=== PATIENT | female | born 1945 | race Caucasian/White ===

== ENCOUNTER → 2018-04-06 15:19 | Outpatient (CLI) | payer MEDICARE, SELFPAY ==
--- NOTE | 2018-04-06 15:21 | ECHOD_ITS ---
Reason For Study: AFIB Procedure This was a 2D Doppler, Color Flow transthoracic echocardiogram. Exam performed in department. Left Ventricle Normal LV size. Left ventricular systolic function is normal. The estimated ejection fraction is 55 %. Stage 2 diastolic dysfunction. No regional wall motion abnormalities noted. Right Ventricle Normal RV size. Normal systolic function. Atria Normal left atrium. Normal right atrium. Mitral Valve Mild diffuse mitral valve thickening. Mild-Moderate (1-2+) eccentric mitral valve insufficiency. Tricuspid Valve Normal tricuspid valve. Mild to moderate (1-2+) tricuspid valve insufficiency. Pulmonary artery systolic pressure is 37 mmHg. Aortic Valve Trisinus/trileaflet aortic valve. Mild focal aortic valve calcification. Pulmonic Valve Normal pulmonic valve. Great Vessels Normal aortic root. The pulmonary artery is normal size. Normal inferior vena cava. Pericardium/Pleural No pericardial effusion. MMode/2D Measurements & Calculations LVIDd: 4.0 cm IVSd: 1.2 cm LVOT diam: 1.8 cm LVIDs: 2.4 cm LVPWd: 1.00 cm LVOT area: 2.5 cm2 RVDd: 3.8 cm FS: 38.7 % Ao root diam: 3.0 cm LAV(MOD-bp): 56.5 ml LA A4 area: 19.5 cm2 LAV(MOD-bp) Indexed: 35.2 ml/m2 LAV(MOD-sp2): 54.0 ml LAV(MOD-sp4): 54.8 ml LA dimension(2D): 4.0 cm RA A4 area: 10.5 cm2 Time Measurements MV dec time: 0.22 sec Doppler Measurements & Calculations MV E max lazarus: 104.6 cm/sec Lat Peak E' Lazarus: 6.8 cm/sec Med Peak E' Lazarus: 5.3 cm/sec MV A max lazarus: 58.6 cm/sec E/E' lat: 15.3 E/E' med: 19.6 MV E/A: 1.8 Ao V2 max: 204.4 cm/sec LV V1 max: 152.7 cm/sec SV(LVOT): 92.9 ml Ao max P.7 mmHg LV V1 max P.3 mmHg Ao V2 mean: 138.5 cm/sec LV V1 mean P.2 mmHg Ao mean P.6 mmHg LV V1 mean: 106.4 cm/sec Ao V2 VTI: 47.4 cm LV V1 VTI: 37.4 cm RHONDA(I,D): 2.0 cm2 RHONDA(V,D): 1.9 cm2 PA V2 max: 126.9 cm/sec PI end-d lazarus: 69.7 cm/sec TR max lazarus: 290.0 cm/sec TR max P.7 mmHg Interpretation Summary Normal LV size. Left ventricular systolic function is normal. The estimated ejection fraction is 55 %. Stage 2 diastolic dysfunction. Mild-Moderate (1-2+) eccentric mitral valve insufficiency. Mild to moderate (1-2+) tricuspid valve insufficiency. Compared to previous study, the left ventricular systolic function has improved.. Ordering Physician: Maxim Ibarra Referring Physician: BRANDON SHAVER Performed By: June Lucero, KOLE, RVT
--- OUTSIDE RECORDS SUMMARY | 2018-05-19 13:49 | XMS RPT_ITS | Clinical Summary ---
:1945 Author Organization [facility], [facility] Address [address] [place] [id number] Phone Care Team Providers Name Role Phone NINI Monroe, Flores Castellon Unavailable Unavailable Conditions or Problems Problem Problem Onset Status Entry Provider Comment Standard Annotate Name Code Date Date Description Cardiomyopa 25259181 Active Lilliana Mahmood Cardiomyopathy thy (SNOMED 10/30 10/[address]) Acute I50.21 Active Lilliana Mahmood Acute systolic systolic (ICD-10-CM 10/30 10/30 RN (congestive) (congestive ) heart failure ) heart failure Acute 96923734 Active Alessio Castellon Acute cholecystit (SNOMED 10/28 10/[address] [place] [address]) Overweight 393927591 Active Natalie Tee Overweight (SNOMED 10/28 10/[address]) RN Dyspnea 752466170 Active Flores Castellon Dyspnea (SNOMED 10/02 10/[address]) 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 Erika Moody 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 Chronic 425870443 Active Erika Moody Chronic diastolic (SNOMED 05/23 05/[address] Viet [address] heart [address]) RN failure failure Hx of 596769121 Active Erika Moody Maze procedure pulmonary (SNOMED 09/19 09/19 Viet for atrial vein [address]) RN fibrillation isolation for atrial fib Paroxysmal 147682033 Active Erika Moody Paroxysmal atrial (SNOMED 05/23 05/[address]) RN fibrillation n 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 Flores Castellon 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 Body Mass 095693968 Resolved Flores Castellon Finding of body Index (SNOMED 01/06 01/06 NINI Monroe mass index 27.0-27.9, CT) adult Family [id number] Resolved Flores Castellon Family history History of (SNOMED 01/20 NINI Monroe of stroke CVA or CT) Stroke High risk 678626805 Active Lilliana Mahmood Long-term drug meds long (SNOMED 06/15 06/[address]) Family [id number] Removed Susan Castellon Family history History of (SNOMED 01/20 Bubba, of stroke CVA or CT) PA-C Stroke Body mass Z68.28 Active Susan Castellon Body mass index index (BMI) (ICD-10-CM 01/20 01/20 Bubba, (BMI) 28.0-28.9, ) PA-C 28.0-28.9, adult adult Body Mass 782261749 Removed Susan Castellon Finding of body Index (SNOMED 01/06 01/06 Bubba, mass index 27.0-27.9, CT) PA-C adult CONGESTIVE 97596732 Inactive Flores Castellon Congestive HEART (SNOMED 05/23 05/23 NINI Monroe heart failure FAILURE CT) ATRIAL 27155054 Inactive Flores Castellon Atrial FIBRILLATIO (SNOMED 05/23 05/23 NINI Monroe fibrillation N CT) Medications Medication Instructions Start Stop Generic Name [facility] Provider Date Date TOPROL XL 50 MG One tablet by METOPROLOL [id number] Grey Eagle S [id number] mouth daily /25 SUCCINATE MD Fred COUMADIN 2 MG take 1 mg on WARFARIN SODIUM 56942134785 Maxim S TABS Tues and Weds, /24 MD Fred 2 mg daliy rest of week or as directed COUMADIN 4 MG One tablet by WARFARIN SODIUM [id number] Stevenson Rees TABS mouth every / MOLDER SWEEP-C evening METOPROLOL One tablet by METOPROLOL 45833966741 Maxim S SUCCINATE ER 100 mouth daily /25 SUCCINATE MD Fred MG [id number] ELIQUIS 5 MG One tablet by APIXABAN 80850123866 Grey Eagle S TABS mouth twice / MD Fred daily AMIODARONE HCL Two tablets by AMIODARONE HCL 41356434679 Jose Sood 200 MG TABS mouth three MD Lawrence times daily X 3 days then One tablet by mouth twice daily ELIQUIS 5 MG One tablet by APIXABAN 80612654664 Susan M TABS mouth twice / Mac, daily PA-C METOPROLOL One tablet by METOPROLOL 87189143749 Susan Castellon SUCCINATE ER 100 mouth daily /25 SUCCINATE Mac, MG [id number] PA-C ELIQUIS 5 MG One tablet by APIXABAN 18884217149 Grey Eagle S TABS mouth twice / MD Fred daily XARELTO 20 MG One tablet by RIVAROXABAN 97594213860 Maxim S TABS mouth daily / MD Fred ASPIRIN 325 MG One tablet by ASPIRIN 34788802632 Grey Eagle S TABS mouth daily / MD Fred COUMADIN 1 MG One tablet by WARFARIN SODIUM 95949780766 Flores M TABS mouth daily / NINI Monroe NASONEX 50 Take as MOMETASONE 08424369642 Flores M MCG/ACT SUSP directed FUROATE NINI Monroe NASONEX 50 Take as MOMETASONE 38060685209 Lilliana A Ela MCG/ACT SUSP directed /10/30 FUROATE RN OMEGA 3 CPDR One tablet by OMEGA-3 FATTY 86852291012 Flores M mouth daily / ACIDS CPDR NINI Monroe OMEGA 3 CPDR One tablet by OMEGA-3 FATTY 56976488658 Lilliana A Ela mouth daily /10/30 ACIDS CPDR RN ASPIRIN EC 81 MG One tablet by ASPIRIN 50070693503 Flores M TBEC mouth daily / Kilner, RN ASPIRIN EC 81 MG One tablet by ASPIRIN 22742058462 Lilliana A Ela TBEC mouth daily /10/30 RN DILTIAZEM HCL ER One tablet by DILTIAZEM HCL 87923527127 Lilliana A Ela 180 MG [id number]-NSM mouth twice / RN daily DILTIAZEM HCL ER One tablet by DILTIAZEM HCL 60480463981 Grey Eagle S 180 MG [id number]-RLB mouth twice /10/31 MD Fred daily METOPROLOL One tablet by METOPROLOL 41779348762 Lilliana A Ela TARTRATE 100 MG mouth twice / TARTRATE RN TABS daily LASIX 40 MG TABS One tablet by FUROSEMIDE 28146153665 Lilliana A Ela mouth twice / RN daily LASIX 40 MG TABS One tablet by FUROSEMIDE 57093055006 Maxim S mouth twice /10/31 MD Fred daily POTASSIUM One tablet by POTASSIUM 20477387269 Lilliana A Ela CHLORIDE ER 20 mouth daily / CHLORIDE RN MEQ CR-TABS POTASSIUM One tablet by POTASSIUM 87286052010 Grey Eagle S CHLORIDE ER 20 mouth daily /10/31 CHLORIDE MD Fred MEQ CR-TABS MULTIVITAMINS One tablet by MULTIPLE VITAMIN Flores M TABS mouth daily / Mabel, RN VITAMIN D 1000 One tablet by CHOLECALCIFEROL 50422180015 Flores M UNIT TABS mouth daily / Kilsharon, RN ANTIVERT 25 MG As needed MECLIZINE HCL Flores M TABS / Kilsharon, RN MELATONIN 3 MG One tablet by MELATONIN 68459481227 Flores M TABS mouth at / Mabel, RN bedtime. As needed VITAMIN B-12 500 One tablet by CYANOCOBALAMIN 27125138159 Flores M MCG TABS mouth daily / Kilsharon, RN OMEPRAZOLE 40 MG One tablet by OMEPRAZOLE 75609159681 Lilliana A Ela CPDR mouth daily / RN CALCIUM 500 MG One tablet by CALCIUM 18276145329 Lilliana A Ela TABS mouth daily / RN XARELTO 20 MG One tablet by RIVAROXABAN 05503410387 Lilliana A Ela TABS mouth daily /02/06 RN METOPROLOL Two tablets by METOPROLOL 31117343737 Susan Castellon SUCCINATE ER 50 mouth daily /25 SUCCINATE Mac, MG [id number] PA-C AMIODARONE HCL Two tablets by AMIODARONE HCL 96940808658 Lilliana A Ela 200 MG TABS mouth twice /04 RN daily X 1 week then One tablet by mouth daily ELIQUIS 5 MG One tablet by APIXABAN 60386284575 Flores M TABS mouth twice /10/02 Kilner, RN daily LASIX 40 MG TABS as needed for FUROSEMIDE 76682544828 Grey Eagle S LE edema / MD Fred AMIODARONE HCL Two tablets by AMIODARONE HCL 72559161670 Lilliana A Ela 200 MG TABS mouth three /04 RN times daily X 3 days then One tablet by mouth twice daily AMIODARONE HCL Two tablets by AMIODARONE HCL 29862422926 Lilliana A Ela 200 MG TABS mouth three /04 06/18 RN times daily X 3 days then One tablet by mouth twice daily ASPIRIN 325 MG One tablet by ASPIRIN 98283477261 Lilliana A Ela TABS mouth daily /20 RN ASPIRIN 325 MG One tablet by ASPIRIN 60637088493 Flores M TABS mouth daily /20 05/14 Kilner, RN LASIX 40 MG TABS as needed for FUROSEMIDE 16322405799 Lilliana A Ela LE edema /20 RN LASIX 40 MG TABS as needed for FUROSEMIDE 27213446437 Flores M LE edema /20 05/14 Kilner, RN OMEPRAZOLE 40 MG One tablet by OMEPRAZOLE 63468534425 Flores M CPDR mouth twice Kilner, RN daily OMEPRAZOLE 40 MG One tablet by OMEPRAZOLE 45691539371 Flores M CPDR mouth twice /10/02 NINI Monroe daily METOPROLOL One tablet by METOPROLOL 57601003772 Erika K SUCCINATE ER 100 mouth daily SUCCINATE Viet MG 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: MULTIVITAMINS One tablet MULTIPLE VITAMIN Erika K TABS by mouth Viet TERRAZAS daily MULTIVITAMINS One tablet 201 MULTIPLE VITAMIN Maxim S TABS by mouth 4/0 MD Fred daily 06/13 VITAMIN D 1000 One tablet CHOLECALCIFEROL 41236146084 Erika K UNIT TABS by mouth Viet TERRAZAS daily VITAMIN D 1000 One tablet 201 CHOLECALCIFEROL 45456805106 Grey Eagle S UNIT TABS by mouth 4/0 MD Fred daily 06/13 LASIX 40 MG TABS One tablet FUROSEMIDE 35364811539 Erika K by mouth Viet TERRAZAS daily LASIX 40 MG TABS One tablet 201 FUROSEMIDE 11936650553 Maxim S by mouth 4/0 MD Fred daily 06/13 5 PRADAXA 150 MG One tablet DABIGATRAN 32222349985 Erika K CAPS by mouth ETEXILATE MESYLATE Viet TERRAZAS twice daily PRADAXA 150 MG One tablet 201 DABIGATRAN 28010029630 Susan Castellon CAPS by mouth 4/0 ETEXILATE MESYLATE Bubba, twice daily 12/11 PA-C 8 METOPROLOL one half METOPROLOL 02934163764 Susan Castellon SUCCINATE ER 100 daily SUCCINATE Mac, MG [id number] PA-C TRAZODONE HCL 50 nightly as TRAZODONE HCL 56326860292 Susan M MG TABS needed Bubba PA-C TRAZODONE HCL 50 nightly as 201 TRAZODONE HCL 03832061924 Maxim S MG TABS needed 5/0 MD Fred 2/2 0 ASPIRIN 81 MG One tablet ASPIRIN 56431908958 Susan M TABS by mouth Mac, daily PA-C ASPIRIN 81 MG One tablet 201 ASPIRIN 66331974347 Maxim S TABS by mouth 5/0 MD Fred daily 2/2 0 METOPROLOL One half METOPROLOL 83423869904 Maxim S SUCCINATE ER 100 tablet by SUCCINATE MD Fred MG [id number] mouth daily OMEPRAZOLE 40 MG One tablet OMEPRAZOLE 45259069570 Maxim S CPDR by mouth MD Fred daily as needed OMEPRAZOLE 40 MG One tablet 201 OMEPRAZOLE 81124106149 Susan Castellon CPDR by mouth 5/0 Mac, daily as 01/10 PA-C needed 1 FLONASE 50 Take as FLUTICASONE 86572816377 Susan Castellon MCG/ACT SUSP directed PROPIONATE Bubba, PA-C FLONASE 50 Take as 201 FLUTICASONE 99896441264 Susan Castellon MCG/ACT SUSP directed 5/0 PROPIONATE Mac, 01/10 PA-C 1 Medications Administered No information available. Allergies, Adverse Reactions, Alerts Allergy Name Reaction Start Date Severity Status Provider Description CARDIZEM Unknown No Longer Lilliana Mahmood RN Active ALBUTEROL Irregular heart Critical Active Maxim Ibarra MD rate AMIODARONE Severe dyspnea Severe Active Lilliana Mahmood RN after taking PO Amiodarone CARDIZEM swelling Critical No Longer Susan Castellon Active Bubba, PA-C HYDROCODONE vomiting Moderate Active Erika Llanos RN MORPHINE vomiting Moderate Active Erika Llanos RN ADHESIVE TAPE rash Moderate Active Erika Llanos RN NAPROXEN Moderate Active Erika Llanos RN Results Date Name Value Unit Range Flag Description Office Visit CHD 10YR RSK Not enough information General cardiovascular disease 10Y risk [#] [place] CARD RSK GRP C cardiac risk group Clinical Lists Update: Preload BNP 237.7 H B-type natriuretic peptide (brain natriuretic peptide) TSH 2.21 u[iU]/mL thyroid stimulating hormone, serum T4, FREE 0.96 ng/dL thyroxine, serum, free T4, TOTAL 9.1 ug/dL thyroxine, serum, total T3 TOTAL 0.91 ng/mL T3, Total T3 FREE 2.5 pg/mL triiodothyronine, free, serum Lab Report: Prothrombin Time w/INR PT RATIO 19.1 SECONDS 11.7-14.9 H prothrombin time, actual/normal, ratio Lab Report: Blood Gas Specimen Type ART BLD GAS ART arterial blood gas Lab Report: pH - I-STAT PH (ART) 7.43 7.35-7.45 pH, arterial blood Lab Report: pCO2 - ISTAT PCO2 (ART) 50.0 mm[Hg] 35-45 H carbon dioxide, partial pressure, arterial blood Lab Report: PO2 I-STAT PO2 (ART) 57 mm[Hg] 75-100 L oxygen, partial pressure, arterial blood Lab Report: Bicarbonate ISTAT HCO3 (ART) 33 mmol/L 22-26 H bicarbonate, arterial blood Lab Report: Base Excess ISTAT BASE EXCESS 9 mmol/L -2 to +2 H base excess, arterial blood Lab Report: Total Carbon Dioxide ISTAT CO2TOT (ART) 35 mmol/L carbon dioxide, arterial blood, total Lab Report: SO2 ISTAT O2SAT (ART) 89 % 95-99 L oxygen saturation, arterial blood Lab Report: Lipase LIPASE SERUM 70 U/L 73-393 L lipase, serum Lab Report: Magnesium MAGNESIUM 2.1 mg/dL 1.8-2.4 magnesium, serum Lab Report: CBC W/Diff, Automated LYMPHCT AUTO 1.80 X10 3/UL 10*3/mm3 0.83-4.51 lymphocyte count, blood, automated ANC 6.8 X10 3/UL 10*3/mm3 2.0-7.7 neutrophil count, blood IMM GRANU % 0.100 % 0.0-0.9 immature granulocytes, percentage of total cells, blood BASOPHIL % 0.2 % 0-1 basophils as percent of blood leukocytes EOSINOPHIL % 1.2 % 0-5 eosinophils as percent of blood leukocytes MONOCYTE % 7.7 % 0-10 monocytes as percent of blood leukocytes LYMPHS % 19.0 % 19-41 lymphocytes as percent of blood leukocytes PMN % 71.8 % 47-70 H neutrophils as percent of blood leukocytes MPV 9.9 fL 6.2-12.0 mean platelet volume PLATELETS 239 10*3/mm3 150-450 platelet count RDW-SD 44.6 fL 35.1-43.9 H red blood cell distribution width, size density RDW 12.9 % 11.6-14.6 red blood cell distribution width MCHC RBC 31.9 G/GL g/dL 32-36 L mean corpuscular hemoglobin concentration, RBC MCH 30.1 pg 27.0-32.0 mean corpuscular hemoglobin, RBC MCV 94.3 fL 81-99 mean corpuscular volume, RBC HCT 34.8 % 37-47 L hematocrit, blood HGB 11.1 g/dL 12.0-15.0 L hemoglobin, blood RBC M/UL 3.69 10*6/uL 4.2-5.4 L red blood count WBC BLOOD 9.5 10*9/L 4.4-11.0 leukocyte (white blood cells) count, blood Lab Report: Comprehensive Metabolic Profil ANION GAP 8 5-15 anion gap, serum CO2 32.0 mmol/L 21.0-32.0 carbon dioxide, venous blood CHLORIDE 100 mmol/L 98-107 chloride, serum POTASSIUM 3.8 mmol/L 3.5-5.1 potassium, serum SODIUM 140 mmol/L 136-145 sodium, serum BILI TOTAL 1.30 mg/dL 0.20-1.00 H bilirubin, serum, total SGPT (ALT) 98 U/L 12-78 H alanine aminotransferase (SGPT), serum ALK PHOS 87 U/L 45-117 alkaline phosphatase, serum SGOT (AST) 41 U/L 15-37 H aspartate aminotransferase (SGOT), serum CALCIUM 9.1 mg/dL 8.5-10.1 calcium, serum A/G RATIO 0.8 RATIO 0.9-2.4 L albumin/globulin ratio, serum GLOBULIN TOT 4.0 g/dL 2.3-3.5 H globulins, serum, total ALBUMIN 3.2 g/dL 3.4-5.0 L albumin, serum PROTEIN, TOT 7.2 g/dL 6.4-8.2 protein, total, serum BUN/CREAT 27.9 RATIO 10-20 H urea nitrogen/creatinine ratio, serum CCVCREABSA 38.14 mL/min calculated corrected value of creatinine clearance with body surface area GFRAA 134 mL/min >60 Glomerular Filtration rate GFR EST 111 mL/min >60 estimated glomerular filtration rate CREATININE 0.57 mg/dL 0.55-1.02 creatinine, serum BUN 16 mg/dL 7-18 urea nitrogen, blood GLUCOSE SER 115 mg/dL 70-110 H blood glucose Office Visit: 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 yes Dietary management education, guidance, and counseling (procedure) SMOK STATUS Former smoker Tobacco use [facility] Lab Report: Prothrombin Time Fingerstick PROTIME 41.4 SEC 11.9-14.4 H Protime Clinical Lists Update: Preload CARDEFECHO 47 % Left ventricular Ejection fraction Office Visit MEDS REVIEW Done Documentation of current medications (procedure) FALLRSKASSES No Fall risk assessment Replaced Document: Midmark ECG Observations EKG INTERP Sinus Bradycardia electrocardiogram -Prominent R(V1) and interpretation left axis -nonspecific -Seen with pulmonary disease -possible anterior fascicular block. -Old anterior infarct. ABNORMAL EKG T AXIS 31 deg T wave axis, electrocardiogram EKG QRS AXIS -23 deg QRS axis, electrocardiogram EKG PWAVAXIS 47 deg P wave axis, electrocardiogram QRS INTERVAL 92 ms QRS duration, electrocardiogram [id number] 434 ms GE use only - for LinkLogic import when terms are not otherwise specified QT INTERVAL new path ms QT interval, electrocardiogram VA INTERVAL 134 ms VA interval, electrocardiogram EKGHRTRATE 52 BPM heart rate on electrocardiogram Coumadin Management: Warfarin Calc INR PT SRC Fingerstick Source of INR (PT) measurement PT PATIENT 0 s prothrombin time (patient) INR 2.4 international normalized ratio (INR) INR RANGE 2 to 3 international normalized ratio (INR) range Plan of Care Type Date Detail Appointment 03:30 PM Maxim Ibarra MD, [address], [address], [place], [address], Referral Cardiac Referral Ajay Hammond MD, [address], [address], [place], [address] Referral EPS Referral Nathan Mane [facility] [place], [address] [place] [address], [phone] Referral EPS Referral Nathan Mane [facility] [place], [address] [place] [address], [phone] Referral excluded from report: Pending order MMM Pending order Follow Up Appt 4 months Pending order EKG (In office) Pending order Follow Up as needed Pending order EKG (In office) Pending order *PT/INR - Standing Order Pending order MMM Pending order Follow Up Appt 3 months Pending order Pulmonary Function Test - complete Pending order CHECK GRADER Pending order Follow Up Appt 6 months Pending order EKG (In office) Pending order MMM Pending order Follow Up Appt 1 month Pending order Transesophageal echocardiogram (ARIS) Pending order Cardioversion Pending order MMM Pending order Follow Up Appt 6 months Pending order CHECK GRADER Pending order Follow Up Appt 6 months Pending order EKG (In office) Pending order MMM Pending order Follow Up Appt 6 months Pending order CHECK GRADER Pending order Follow Up Appt 3 months Procedures Code Procedure Name Date Entry Date F/U MMM MMM FUA 4 months Follow Up Appt 4 months CPT-73739 EKG (In office) Cardiac Referral Cardiac Referral EPS EPS Referral Order excluded from report: F/U MMM MMM FUA 3 months Follow Up Appt 3 months PFT Pulmonary Function Test - complete F/U CHECK GRADER CHECK GRADER FUA 6 months Follow Up Appt 6 months CPT-01343 EKG (In office) F/U MMM MMM FUA 1 month Follow Up Appt 1 month CV Cardioversion ARIS Transesophageal echocardiogram (ARIS) F/U MMM MMM FUA 6 months Follow Up Appt 6 months [id number] SNOMED-CT: [id number] Current Medications Documented F/U CHECK GRADER CHECK GRADER FUA 6 months Follow Up Appt 6 months F/U MMM MMM FUA 6 months Follow Up Appt 6 months CPT-06781 EKG (In office) F/U CHECK GRADER CHECK GRADER FUA 3 months Follow Up Appt 3 months Vital Signs Date Name Value Unit Description BMI (Body Mass Index) 26.95 kg/m2 Body Mass Index [Ratio] BP Diastolic 60 mm[Hg] blood pressure, diastolic - 8462-4 BP Systolic 100 mm[Hg] blood pressure, systolic - 8480-6 Heart Rate 80 /min pulse rate E&M - 8867-4 Height 60 [in_us] height E&M - 8302-2 Respiratory Rate 20 /min respiratory rate E&M - 9279-1 Weight Measured 138 [lb_av] weight E&M - 3141-9 Body Temperature 98.1 [degF] temperature E&M Body Temperature 36.72 Brittanie temperature in centigrade E&M BSA (Body Surface Area) 1.58 body surface area Height 152.40 cm height in centimeters E&M Weight Measured 61.23 kg weight in kilograms E&M
--- OUTSIDE RECORDS SUMMARY | 2018-05-19 13:50 | XMS RPT_ITS | Clinical Summary ---
:1945 Author Organization Formerly [facility], [facility] Address [address] [place] [address] Phone Care Team Providers Name Role Phone Michelle [phone] Conditions or Problems Problem Problem Onset Status Entry Provider Comment Standard Annotate Name Code Date Date Description Cardiomyopa 03806341 Active Lilliana Mahmood Cardiomyopathy thy (SNOMED 10/30 10/[address]) Acute I50.21 Active Lilliana Mahmood Acute systolic systolic (ICD-10-CM 10/30 10/30 RN (congestive) (congestive ) heart failure ) heart failure Acute 00000222 Active Alessio Castellon Acute cholecystit (SNOMED 10/28 10/29 [place] [address] CT) Overweight 280315542 Active Natalie Tee Overweight (SNOMED 10/28 10/[address]) RN Dyspnea 433177635 Active Flores Castellon Dyspnea (SNOMED 10/02 10/[address]) 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 Erika Moody 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 Chronic 289876932 Active Erika Moody Chronic diastolic (SNOMED 05/23 05/[address] [place] [address] heart [address]) RN failure failure Hx of 073349244 Active Erika Modoy Maze procedure pulmonary (SNOMED 09/19 09/19 Viet for atrial vein CT) RN fibrillation isolation for atrial fib Paroxysmal 766115546 Active Erika Moody Paroxysmal atrial (SNOMED 05/23 05/[address]) RN fibrillation n 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 Flores Castellon 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 Body Mass 112424340 Resolved Flores Castellon Finding of body Index (SNOMED 01/06 01/06 NINI [place] mass index 27.0-27.9, CT) adult Family [id number] Resolved Flores Castellon Family history History of (SNOMED 01/20 NINI [place] of stroke CVA or CT) Stroke High risk 845489134 Active Lilliana Mahmood Long-term drug meds long (SNOMED 06/15 06/[address]) Family [id number] Removed Susan Castellon Family history History of (SNOMED 01/20 Bubba, of stroke CVA or CT) PA-C Stroke Body mass Z68.28 Active Susan Castellon Body mass index index (BMI) (ICD-10-CM 01/20 01/20 Bubba, (BMI) 28.0-28.9, ) PA-C 28.0-28.9, adult adult Body Mass 409312152 Removed Susan Castellon Finding of body Index (SNOMED 01/06 01/06 Bubba, mass index 27.0-27.9, CT) PA-C adult CONGESTIVE 25018962 Inactive Flores Castellon Congestive HEART (SNOMED 05/23 05/23 NINI [place] heart failure FAILURE CT) ATRIAL 76420188 Inactive Flores Castellon Atrial FIBRILLATIO (SNOMED 05/23 05/23 NINI [place] fibrillation N CT) Medications Medication Instructions Start Stop Generic Name [facility] Provider Date Date TOPROL XL 50 MG One tablet by METOPROLOL [id number] Maxim S [id number] mouth daily /25 SUCCINATE MD Fred COUMADIN 2 MG take 1 mg on WARFARIN SODIUM [id number] [place] TABS Tues and Weds, /24 MD Fred 2 mg daliy rest of week or as directed COUMADIN 4 MG One tablet by WARFARIN SODIUM 55098650441 Stevenson Rees TABS mouth every / [employer]-C evening METOPROLOL One tablet by METOPROLOL [id number] [place] SUCCINATE ER 100 mouth daily /25 SUCCINATE MD Fred MG [id number] ELIQUIS 5 MG One tablet by APIXABAN 47042873932 Maxim S TABS mouth twice / MD Fred daily AMIODARONE HCL Two tablets by AMIODARONE HCL [id number] Jose Sood 200 MG TABS mouth MD Lawrence times daily X 3 days then One tablet by mouth twice daily ELIQUIS 5 MG One tablet by APIXABAN [id number] Susan Cande TABS mouth twice / Mac, daily PA-C METOPROLOL One tablet by METOPROLOL [id number] Susan Cande SUCCINATE ER 100 mouth daily /25 SUCCINATE Mac, MG [id number] PA-C ELIQUIS 5 MG One tablet by APIXABAN 77863544603 Maxim S TABS mouth twice / MD Fred daily XARELTO 20 MG One tablet by RIVAROXABAN [id number] [place] TABS mouth daily / MD Fred ASPIRIN 325 MG One tablet by ASPIRIN [id number] Maxim S TABS mouth daily / MD Fred NASONEX 50 Take as MOMETASONE 51102560675 Flores M MCG/ACT SUSP directed FUROATE NINI [place] NASONEX 50 Take as MOMETASONE 48799730206 Lilliana A Ela MCG/ACT SUSP directed /10/30 FUROATE RN OMEGA 3 CPDR One tablet by OMEGA-3 FATTY 80909284767 Flores M mouth daily / ACIDS CPDR NINI [place] OMEGA 3 CPDR One tablet by OMEGA-3 FATTY 80739805037 Lilliana A Ela mouth daily /10/30 ACIDS CPDR NINI ASPIRIN EC 81 MG One tablet by ASPIRIN 13276062417 Flores M TBEC mouth daily / NINI [place] ASPIRIN EC 81 MG One tablet by ASPIRIN 03255271658 Lilliana A Ela TBEC mouth daily /10/30 RN DILTIAZEM HCL ER One tablet by DILTIAZEM HCL 71499244654 Lilliana A Ela 180 MG [id number] mouth twice / RN daily DILTIAZEM HCL ER One tablet by DILTIAZEM HCL 56523459916 [place] S 180 MG PF69V-SNN mouth twice /10/31 MD Fred daily METOPROLOL One tablet by METOPROLOL 78111176319 Lilliana A Ela TARTRATE 100 MG mouth twice / TARTRATE RN TABS daily LASIX 40 MG TABS One tablet by FUROSEMIDE 61278536594 Lilliana A Ela mouth twice / RN daily LASIX 40 MG TABS One tablet by FUROSEMIDE 80042294370 Maxim S mouth twice /10/31 MD Fred daily POTASSIUM One tablet by POTASSIUM 93124889829 Lilliana A Ela CHLORIDE ER 20 mouth daily / CHLORIDE RN MEQ CR-TABS POTASSIUM One tablet by POTASSIUM 49150206522 [place] CHLORIDE ER 20 mouth daily /10/31 CHLORIDE MD Fred MEQ CR-TABS MULTIVITAMINS One tablet by MULTIPLE VITAMIN Flores M TABS mouth daily / [facility], RN VITAMIN D 1000 One tablet by CHOLECALCIFEROL 62133235013 Flores M UNIT TABS mouth daily / [facility], RN ANTIVERT 25 MG As needed MECLIZINE HCL Flores M TABS / [facility], RN MELATONIN 3 MG One tablet by MELATONIN [id number] Flores M TABS mouth at / [facility], RN bedtime. As needed VITAMIN B-12 500 One tablet by CYANOCOBALAMIN 45423787991 Flores M MCG TABS mouth daily / [place], RN OMEPRAZOLE 40 MG One tablet by OMEPRAZOLE 80501880235 Lilliana A Ela CPDR mouth daily / RN CALCIUM 500 MG One tablet by CALCIUM [id number] Lilliana A Ela TABS mouth daily / RN XARELTO 20 MG One tablet by RIVAROXABAN 61288077834 Lilliana A Ela TABS mouth daily /11 02/06 RN METOPROLOL Two tablets by METOPROLOL [id number] Susan Castellon SUCCINATE ER 50 mouth daily /25 SUCCINATE Mac, MG CF72F-[id number] PA-C AMIODARONE HCL Two tablets by AMIODARONE HCL 12866490560 Lilliana A Ela 200 MG TABS mouth twice /04 RN daily X 1 week then One tablet by mouth daily ELIQUIS 5 MG One tablet by APIXABAN [id number] Flores M TABS mouth twice /10/02 [facility], RN daily LASIX 40 MG TABS as needed for FUROSEMIDE 56485026436 [place] [facility] LE edema / MD Fred AMIODARONE HCL Two tablets by AMIODARONE HCL 97381019346 Lilliana A Ela 200 MG TABS mouth three /04 RN times daily X 3 days then One tablet by mouth twice daily AMIODARONE HCL Two tablets by AMIODARONE HCL 15994546853 Lilliana A Ela 200 MG TABS mouth three /04 06/18 RN times daily X 3 days then One tablet by mouth twice daily ASPIRIN 325 MG One tablet by ASPIRIN 45353267312 Lilliana A Ela TABS mouth daily /20 RN ASPIRIN 325 MG One tablet by ASPIRIN 77192928208 Flores M TABS mouth daily /20 05/14 [place], RN LASIX 40 MG TABS as needed for FUROSEMIDE 16447349355 Lilliana A Ela LE edema /20 RN LASIX 40 MG TABS as needed for FUROSEMIDE 98424847721 Flores M LE edema /20 05/14 [place], RN OMEPRAZOLE 40 MG One tablet by OMEPRAZOLE 15732754230 Flores M CPDR mouth twice [place], RN daily OMEPRAZOLE 40 MG One tablet by OMEPRAZOLE 08111352288 Flores M CPDR mouth twice /10/02 [place], RN daily METOPROLOL One tablet by METOPROLOL 95911844168 Erika K SUCCINATE ER 100 mouth daily /20 SUCCINATE Viet MG [id number] [employer]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: MULTIVITAMINS One tablet MULTIPLE VITAMIN Erika K TABS by mouth Viet TERRAZAS daily MULTIVITAMINS One tablet 201 MULTIPLE VITAMIN [place] TABS by mouth 4/0 MD Fred daily 06/13 5 VITAMIN D 1000 One tablet CHOLECALCIFEROL 78615674715 Erika K UNIT TABS by mouth Viet TERRAZAS daily VITAMIN D 1000 One tablet 201 CHOLECALCIFEROL 93858383724 Maxim S UNIT TABS by mouth 4/0 MD Fred daily 06/13 5 LASIX 40 MG TABS One tablet FUROSEMIDE 98848008739 Erika K by mouth Viet TERRAZAS daily LASIX 40 MG TABS One tablet 201 FUROSEMIDE 78231513553 [place] S by mouth 4/0 MD Fred daily 06/13 5 PRADAXA 150 MG One tablet DABIGATRAN 13196140103 Erika K CAPS by mouth ETEXILATE MESYLATE Viet TERRAZAS twice daily PRADAXA 150 MG One tablet 201 DABIGATRAN 68672525318 Susan Castellon CAPS by mouth 4/0 ETEXILATE MESYLATE Bubba, twice daily 12/11 PA-C 8 METOPROLOL one half METOPROLOL 93729182174 Susan Castellon SUCCINATE ER 100 daily SUCCINATE Mac, MG [id number]-[id number] PA-C TRAZODONE HCL 50 nightly as TRAZODONE HCL 18057257192 Susan M MG TABS needed Mac, PA-C TRAZODONE HCL 50 nightly as 201 TRAZODONE HCL 28663871230 Maxim S MG TABS needed 5/0 MD Fred 2/2 0 ASPIRIN 81 MG One tablet ASPIRIN 33064853536 Susan M TABS by mouth Bubba, daily PA-C ASPIRIN 81 MG One tablet 201 ASPIRIN 47131060408 [place] S TABS by mouth 5/0 MD Fred daily 2/2 0 METOPROLOL One half METOPROLOL 06645645765 Maxim S SUCCINATE ER 100 tablet by SUCCINATE MD Fred MG [id number] mouth daily OMEPRAZOLE 40 MG One tablet OMEPRAZOLE 87998140405 Maxim S CPDR by mouth MD Fred daily as needed OMEPRAZOLE 40 MG One tablet 201 OMEPRAZOLE 67777044984 Susan Castellon CPDR by mouth 5/0 Mac, daily as 01/10 PA-C needed 1 FLONASE 50 Take as FLUTICASONE 42210481291 Susan Castellon MCG/ACT SUSP directed PROPIONATE OLI MacC FLONASE 50 Take as 201 FLUTICASONE 74713331617 Susan Castellon MCG/ACT SUSP directed 5/0 PROPIONATE Mac, 01/10 PA-C 1 Medications Administered No information available. Allergies, Adverse Reactions, Alerts Allergy Name Reaction Start Date Severity Status Provider Description CARDIZEM Unknown No Longer Lilliana Mahmood RN Active ALBUTEROL Irregular heart Critical Active [place] MD Fred rate AMIODARONE Severe dyspnea Severe Active Lilliana Mahmood RN after taking PO Amiodarone CARDIZEM swelling Critical No Longer Susan Castellon Active OLI MacC HYDROCODONE vomiting Moderate Active Erika Llanos RN MORPHINE vomiting Moderate Active Erika Llanos RN ADHESIVE TAPE rash Moderate Active Erika Llanos RN NAPROXEN Moderate Active Erika Llanos RN Results Date Name Value Unit Range Flag Description Office Visit CHD 10YR RSK Not enough information General cardiovascular disease 10Y risk [#] [place].D'Agostino CARD RSK GRP C cardiac risk group [...] 70-110 H blood glucose Office Visit: S/P Lap Melyssa DIET [employer] yes Dietary management education, guidance, and counseling (procedure) SMOK STATUS Former smoker Tobacco use [facility] Lab Report: Prothrombin Time Fingerstick PROTIME 41.4 SEC 11.9-14.4 H Protime Coumadin Management: Warfarin Calc INR PT [facility] Hospital lab Source of INR (PT) measurement PT PATIENT 41.4 s prothrombin time (patient) INR 3.7 international normalized ratio (INR) INR RANGE 2 to 3 international normalized ratio (INR) range Clinical Lists Update: Preload CARDEFECHO 47 % Left ventricular Ejection fraction Office Visit MEDS REVIEW Done Documentation of current medications (procedure) LUÍS Modi Fall risk assessment Replaced Document: Midmark ECG [...] INTERVAL new path ms QT interval, electrocardiogram ND INTERVAL 134 ms ND interval, electrocardiogram EKGHRTRATE 52 BPM heart rate on electrocardiogram Plan of Care Type Date Detail Appointment 03:30 PM Maxim Ibarra MD, [address] [facility], [address], [place], [address], Referral Cardiac Referral Ajay Hammond MD, [address] [place], [facility] [address], [place], [address] Referral [facility] Ref[facility] [place], [address] [place] [address], [phone] Referral EPS Referral Nathan Mane [facility] [place], [address] [place] [address], [phone] Referral excluded from report: Pending order MMM Pending order Follow Up Appt 4 months Pending order EKG (In office) Pending order Follow Up as needed Pending order EKG (In office) Pending order *PT/INR - Standing Order Pending order MMM Pending order Follow Up Appt 3 months Pending order Pulmonary Function Test - complete Pending order [employer] CHAIR Pending order Follow Up Appt 6 months Pending order EKG (In office) Pending order MMM Pending order Follow Up Appt 1 month Pending order Transesophageal echocardiogram ([facility]) Pending order Cardioversion Pending order MMM Pending order Follow Up Appt 6 months Pending order [employer] CHAIR Pending order Follow Up Appt 6 months Pending order EKG (In office) Pending order MMM Pending order Follow Up Appt 6 months Pending order [employer] DE[employer]MENT CHAIR Pending order Follow Up Appt 3 months Procedures Code Procedure Name Date Entry Date F/U MMM MMM FUA 4 months Follow Up Appt 4 months CPT-93320 EKG (In office) Cardiac Referral Cardiac Referral EPS EPS Referral Order excluded from report: F/U MMM MMM FUA 3 months Follow Up Appt 3 months PFT Pulmonary Function Test - complete F/U [employer] CHAIR [employer] DEPARTMENT CHAIR FUA 6 months Follow Up Appt 6 months CPT-90453 EKG (In office) F/U MMM MMM FUA 1 month Follow Up Appt 1 month CV Cardioversion [facility]IS Transesophageal echocardiogram ([facility]) F/U MMM MMM FUA 6 months Follow Up Appt 6 months SCT-[id number] SNOMED-CT: [id number] Current Medications Documented F/U [employer]PARTMENT CHAIR [employer] DEPARTMENT CHAIR FUA 6 months Follow Up Appt 6 months F/U MMM MMM FUA 6 months Follow Up Appt 6 months CPT-42002 EKG (In office) F/U [employer] DEPARTMENT CHAIR [employer] DEPARTMENT CHAIR FUA 3 months Follow Up Appt 3 [...] Height 152.40 cm height in centimeters E&M O2 % BldC Oximetry 94 % oxygen saturation, oximetry Weight Measured 61.23 kg weight in kilograms E&M
--- OUTSIDE RECORDS SUMMARY | 2018-05-19 13:50 | XMS RPT_ITS | Clinical Summary ---
:1945 Author Organization Formerly [facility], [facility] Address [address] [place] [id number] Phone Care Team Providers Name Role Phone Michelle [phone] Conditions or Problems Problem Problem Onset Status Entry Provider Comment Standard Annotate Name Code Date Date Description Cardiomyopa 46173213 Active Lilliana Mahmood Cardiomyopathy thy (SNOMED 10/30 10/[address]) Acute I50.21 Active Lilliana Mahmood Acute systolic systolic (ICD-10-CM 10/30 10/30 RN (congestive) (congestive ) heart failure ) heart failure Acute 39528189 Active Alessio Castellon Acute cholecystit (SNOMED 10/28 10/[address] [place] [address]) Overweight 906841253 Active Natalie Tee Overweight (SNOMED 10/28 10/[address]) RN Dyspnea 403646245 Active Flores Castellon Dyspnea (SNOMED 10/02 10/[address]) 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 Erika Moody 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 Chronic 608180208 Active Erika Moody Chronic diastolic (SNOMED 05/23 05/[address] [place] [address]) RN failure failure Hx of 934871421 Active Erika Moody Maze procedure pulmonary (SNOMED 09/19 09/19 Viet for atrial vein [address]) RN fibrillation isolation for atrial fib Paroxysmal 481353003 Active Erika Moody Paroxysmal atrial (SNOMED 05/23 05/[address]) RN fibrillation n 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 Flores Castellon 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 Body Mass 293373296 Resolved Flores Castellon Finding of body Index (SNOMED 01/06 01/06 NINI Monroe mass index 27.0-27.9, CT) adult Family [id number] Resolved Flores Castellon Family history History of (SNOMED 01/20 NINI [place] of stroke CVA or CT) Stroke High risk 500421554 Active Lilliana Mahmood Long-term drug meds long (SNOMED 06/15 06/[address]) Family [id number] Removed Susan Castellon Family history History of (SNOMED 01/20 Bubba, of stroke CVA or CT) PA-C Stroke Body mass Z68.28 Active Susan Castellon Body mass index index (BMI) (ICD-10-CM 01/20 01/20 Bubba, (BMI) 28.0-28.9, ) PA-C 28.0-28.9, adult adult Body Mass 731810107 Removed Susan Castellon Finding of body Index (SNOMED 01/06 01/06 Bubba, mass index 27.0-27.9, CT) PA-C adult CONGESTIVE 83995558 Inactive Flores Castellon Congestive HEART (SNOMED 05/23 05/23 NINI [place] heart failure FAILURE CT) ATRIAL 24229688 Inactive Flores Castellon Atrial FIBRILLATIO (SNOMED 05/23 05/23 NINI [place] fibrillation N CT) Medications Medication Instructions Start Stop Generic Name [facility] Provider Date Date TOPROL XL 50 MG One tablet by METOPROLOL [id number] Maxim S [id number] mouth daily /25 SUCCINATE MD Fred COUMADIN 2 MG take 1 mg on WARFARIN SODIUM [id number] [place] S TABS Tues and Weds, /24 MD Fred 2 mg daliy rest of week or as directed COUMADIN 4 MG One tablet by WARFARIN SODIUM 31745053857 Stevenson Rees TABS mouth every / PROJECT MANAGEMENT ANALYST-C evening METOPROLOL One tablet by METOPROLOL 15852863383 [place] S SUCCINATE ER 100 mouth daily /25 SUCCINATE MD Fred MG [id number] ELIQUIS 5 MG One tablet by APIXABAN 90967729811 Maxim S TABS mouth twice / MD Fred daily AMIODARONE HCL Two tablets by AMIODARONE HCL 44743709068 Jose Sood 200 MG TABS mouth MD Lawrence times daily X 3 days then One tablet by mouth twice daily ELIQUIS 5 MG One tablet by APIXABAN [id number] Susan Cande TABS mouth twice / Mac, daily PA-C METOPROLOL One tablet by METOPROLOL [id number] Susan Cande SUCCINATE ER 100 mouth daily /25 SUCCINATE Mac, MG [id number] PA-C ELIQUIS 5 MG One tablet by APIXABAN 23156688402 Maxim S TABS mouth twice / MD Fred daily XARELTO 20 MG One tablet by RIVAROXABAN 66397288051 Columbus S TABS mouth daily / MD Fred ASPIRIN 325 MG One tablet by ASPIRIN 14910737735 Maxim S TABS mouth daily / MD Fred NASONEX 50 Take as MOMETASONE 41571899357 Flores M MCG/ACT SUSP directed FUROATE NINI Monroe NASONEX 50 Take as MOMETASONE 35142235399 Lilliana A Ela MCG/ACT SUSP directed /10/30 FUROATE RN OMEGA 3 CPDR One tablet by OMEGA-3 FATTY 97254574372 Flores M mouth daily / ACIDS CPDR NINI Monroe OMEGA 3 CPDR One tablet by OMEGA-3 FATTY 08752352369 Lilliana A Ela mouth daily /10/30 ACIDS CPDR NINI ASPIRIN EC 81 MG One tablet by ASPIRIN 04249792815 Flores M TBEC mouth daily / NINI Monroe ASPIRIN EC 81 MG One tablet by ASPIRIN 95144490539 Lilliana A Ela TBEC mouth daily /10/30 RN DILTIAZEM HCL ER One tablet by DILTIAZEM HCL 04672380058 Lilliana A Ela 180 MG [id number] mouth twice / RN daily DILTIAZEM HCL ER One tablet by DILTIAZEM HCL 95550449836 [place] S 180 MG [id number] mouth twice /10/31 MD Fred daily METOPROLOL One tablet by METOPROLOL 38083027576 Lilliana A Ela TARTRATE 100 MG mouth twice / TARTRATE RN TABS daily LASIX 40 MG TABS One tablet by FUROSEMIDE 54463768670 Lilliana A Ela mouth twice / RN daily LASIX 40 MG TABS One tablet by FUROSEMIDE 42240091320 Maxim S mouth twice /10/31 MD rFed daily POTASSIUM One tablet by POTASSIUM 08412323284 Lilliana A Ela CHLORIDE ER 20 mouth daily / CHLORIDE RN MEQ CR-TABS POTASSIUM One tablet by POTASSIUM 09149040154 Columbus S CHLORIDE ER 20 mouth daily /10/31 CHLORIDE MD Fred MEQ CR-TABS MULTIVITAMINS One tablet by MULTIPLE VITAMIN Flores M TABS mouth daily / [facility], RN VITAMIN D 1000 One tablet by CHOLECALCIFEROL 54485498614 Flores M UNIT TABS mouth daily / [facility], RN ANTIVERT 25 MG As needed MECLIZINE HCL Flores M TABS / [facility], RN MELATONIN 3 MG One tablet by MELATONIN 33717578755 Flores M TABS mouth at / [facility], RN bedtime. As needed VITAMIN B-12 500 One tablet by CYANOCOBALAMIN 96613578163 Flores M MCG TABS mouth daily / [place], RN OMEPRAZOLE 40 MG One tablet by OMEPRAZOLE 96036589741 Lilliana A Ela CPDR mouth daily / RN CALCIUM 500 MG One tablet by CALCIUM 62769727741 Lilliana A Ela TABS mouth daily / RN XARELTO 20 MG One tablet by RIVAROXABAN 83716349796 Lilliana A Ela TABS mouth daily /11 02/06 RN METOPROLOL Two tablets by METOPROLOL 39025715939 Susan Castellon SUCCINATE ER 50 mouth daily /25 SUCCINATE Mac, MG [id number] PA-C AMIODARONE HCL Two tablets by AMIODARONE HCL 00146952060 Lilliana A Ela 200 MG TABS mouth twice /04 RN daily X 1 week then One tablet by mouth daily ELIQUIS 5 MG One tablet by APIXABAN 86901235672 Flores M TABS mouth twice /10/02 [facility], RN daily LASIX 40 MG TABS as needed for FUROSEMIDE 12794815477 Columbus S LE edema / MD Fred AMIODARONE HCL Two tablets by AMIODARONE HCL 39531273158 Lilliana A Ela 200 MG TABS mouth three /04 RN times daily X 3 days then One tablet by mouth twice daily AMIODARONE HCL Two tablets by AMIODARONE HCL 07302521926 Lilliana A Ela 200 MG TABS mouth three /04 06/18 RN times daily X 3 days then One tablet by mouth twice daily ASPIRIN 325 MG One tablet by ASPIRIN 68833661788 Lilliana A Ela TABS mouth daily /20 RN ASPIRIN 325 MG One tablet by ASPIRIN 74509219294 Flores M TABS mouth daily /20 05/14 Mabel, RN LASIX 40 MG TABS as needed for FUROSEMIDE 06968265447 Lilliana A Ela LE edema /20 RN LASIX 40 MG TABS as needed for FUROSEMIDE 07414189274 Flores M LE edema /20 05/14 [place], RN OMEPRAZOLE 40 MG One tablet by OMEPRAZOLE 42317246181 Flores M CPDR mouth twice [place], RN daily OMEPRAZOLE 40 MG One tablet by OMEPRAZOLE 07510859140 Flores M CPDR mouth twice /10/02 [place], RN daily METOPROLOL One tablet by METOPROLOL 68865491172 Erika K SUCCINATE ER 100 mouth daily /20 SUCCINATE Viet MG 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: MULTIVITAMINS One tablet MULTIPLE VITAMIN Erika K TABS by mouth Viet TERRAZAS daily MULTIVITAMINS One tablet 201 MULTIPLE VITAMIN Columbus S TABS by mouth 4/0 MD Fred daily 06/13 5 VITAMIN D 1000 One tablet CHOLECALCIFEROL 13327090707 Erika K UNIT TABS by mouth Viet TERRAZAS daily VITAMIN D 1000 One tablet 201 CHOLECALCIFEROL 42256183388 Maxim S UNIT TABS by mouth 4/0 MD Fred daily 06/13 5 LASIX 40 MG TABS One tablet FUROSEMIDE 56919551185 Erika K by mouth Viet TERRAZAS daily LASIX 40 MG TABS One tablet 201 FUROSEMIDE 13725488404 [place] S by mouth 4/0 MD Fred daily 06/13 5 PRADAXA 150 MG One tablet DABIGATRAN 20645438428 Erika K CAPS by mouth ETEXILATE MESYLATE Viet TERRAZAS twice daily PRADAXA 150 MG One tablet 201 DABIGATRAN 67043858490 Susan Castellon CAPS by mouth 4/0 ETEXILATE MESYLATE Bubba, twice daily 12/11 PA-C 8 METOPROLOL one half METOPROLOL 26547358723 Susan Castellon SUCCINATE ER 100 daily SUCCINATE Mac, MG [id number] PA-C TRAZODONE HCL 50 nightly as TRAZODONE HCL 90506474833 Susan M MG TABS needed Mac, PA-C TRAZODONE HCL 50 nightly as 201 TRAZODONE HCL 23351901045 Maxim S MG TABS needed 5/0 MD Fred 2/2 0 ASPIRIN 81 MG One tablet ASPIRIN 35087476022 Susan M TABS by mouth Bubba, daily PA-C ASPIRIN 81 MG One tablet 201 ASPIRIN 57313655727 Columbus S TABS by mouth 5/0 MD Fred daily 2/2 0 METOPROLOL One half METOPROLOL 79365452057 Maxim S SUCCINATE ER 100 tablet by SUCCINATE MD Fred MG [id number] mouth daily OMEPRAZOLE 40 MG One tablet OMEPRAZOLE 91380484984 Maxim S CPDR by mouth MD Fred daily as needed OMEPRAZOLE 40 MG One tablet 201 OMEPRAZOLE 89694664107 Susan Castellon CPDR by mouth 5/0 Mac, daily as 01/10 PA-C needed 1 FLONASE 50 Take as FLUTICASONE 83197683418 Susan Castellon MCG/ACT SUSP directed PROPIONATE OLI MacC FLONASE 50 Take as 201 FLUTICASONE 88637750573 Susan Castellon MCG/ACT SUSP directed 5/0 PROPIONATE Mac, 01/10 PA-C 1 Medications Administered No information available. 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 yes Dietary management education, guidance, and counseling (procedure) SMOK STATUS Former smoker Tobacco use [facility] MEDS REVIEW Done Documentation of current medications (procedure) FALLRSKASSES No Fall risk assessment Lab Report: Prothrombin Time Fingerstick PROTIME 41.4 SEC 11.9-14.4 H Protime Coumadin Management: Warfarin Calc INR PT [facility] Hospital lab Source of INR (PT) measurement PT PATIENT 41.4 s prothrombin time (patient) INR 3.7 international normalized ratio (INR) INR RANGE 2 to 3 international normalized ratio (INR) range Clinical Lists Update: Preload CARDEFECHO 47 % Left ventricular Ejection fraction Replaced Document: Midmark ECG Observations EKG INTERP [...] INTERVAL new path ms QT interval, electrocardiogram WV INTERVAL 134 ms WV interval, electrocardiogram EKGHRTRATE 52 BPM heart rate on electrocardiogram Plan of Care Type Date Detail Appointment 03:45 PM Maxim Ibarra MD, [address], [address], [place], [address], Appointment 03:30 PM Maxim Ibarra MD, [address], [address], [place], [address], Referral Cardiac Referral Ajay Hammond MD, [address], [address], [place], [address] Referral EPS Referral Nathan Mane [facility], [address] [place] [address], [address] Referral EPS Referral Nathan Mane [facility], [address] [place] [address], [phone] Referral excluded from report: Pending order MMM Pending order Follow Up Appt 4 months Pending order EKG (In office) Pending order Follow Up as needed Pending order EKG (In office) Pending order *PT/INR - Standing Order Pending order MMM Pending order Follow Up Appt 3 months Pending order Pulmonary Function Test - complete 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 order 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 Pending order Follow Up Appt 6 months Pending order EKG (In office) Pending order MMM Pending order Follow Up Appt 1 month Pending order Transesophageal echocardiogram (ARIS) Pending order Cardioversion Pending order MMM Pending order Follow Up Appt 6 months Pending order 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 Pending order Follow Up Appt 6 months Pending order EKG (In office) Pending order MMM Pending order Follow Up Appt 6 months Pending order 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 Pending order Follow Up Appt 3 months Procedures Code Procedure Name Date Entry Date F/U MMM MMM FUA 4 months Follow Up Appt 4 months CPT-28091 EKG (In office) Cardiac Referral Cardiac Referral EPS EPS Referral Order excluded from report: F/U MMM MMM FUA 3 months Follow Up Appt 3 months PFT Pulmonary Function Test - complete F/U 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 FUA 6 months Follow Up Appt 6 months CPT-71903 EKG (In office) F/U MMM MMM FUA 1 month Follow Up Appt 1 month CV Cardioversion ARIS Transesophageal echocardiogram ([facility]) F/U MMM MMM FUA 6 months Follow Up Appt 6 months [facility]-[id number] SNOMED-CT: [id number] Current Medications Documented F/U 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 FUA 6 months Follow Up Appt 6 months F/U MMM MMM FUA 6 months Follow Up Appt 6 months CPT-76881 EKG (In office) F/U 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 FUA 3 months Follow Up Appt 3 months Vital Signs Date Name Value Unit Description BMI (Body Mass Index) 26.36 kg/m2 Body Mass Index [Ratio] Body Temperature 98.1 [degF] temperature E&M Body Temperature 36.72 Brittanie temperature in centigrade E&M BP Diastolic 71 mm[Hg] blood pressure, diastolic - 8462-4 BP Systolic 119 mm[Hg] blood pressure, systolic - 8480-6 BSA (Body Surface Area) 1.58 body surface area Heart Rate 50 /min pulse rate E&M - 8867-4 Height 60 [in_us] height E&M - 8302-2 Height 152.40 cm height in centimeters E&M O2 % BldC Oximetry 94 % oxygen saturation, oximetry Respiratory Rate 16 /min respiratory rate E&M - 9279-1 Weight Measured 135 [lb_av] weight E&M - 3141-9 Weight Measured 61.23 kg weight in kilograms E&M
--- OUTSIDE RECORDS SUMMARY | 2018-05-19 13:50 | XMS RPT_ITS | Clinical Summary ---
:1945 Author Organization [facility], [facility] Address [address] [place] [address] Phone Care Team Providers Name Role Phone NINI Monroe, Flores Castellon Unavailable Unavailable Conditions or Problems Problem Name Problem Onset Status Entry Provider Comment Standard Annotate Code Date Date Description Acute 67651244 Active Alessio Castellon Acute cholecystiti (SNOMED 10/28 10/[address] [place] [address]) Overweight 701003092 Active Natalie Tee Overweight (SNOMED 10/28 10/[address]) NINI Dyspnea 293101139 Active Flores Castellon Dyspnea (SNOMED 10/02 10/[address]) 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 Erika Moody 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 Chronic 434395738 Active Erika Moody Chronic diastolic (SNOMED 05/23 05/[address]) 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 failure Hx of 204187864 Active Erika Moody Maze procedure pulmonary (SNOMED 09/19 09/[address] [place] [address] vein [address]) RN fibrillation isolation for atrial fib Paroxysmal 224154064 Active Erika Moody Paroxysmal atrial (SNOMED 05/23 05/[address]) RN fibrillation 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 Flores Castellon 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 Body Mass 681585553 Resolved Flores Castellon Finding of Index (SNOMED 01/06 01/06 NINI Monroe body mass 27.0-27.9, CT) index adult Family [id number] Resolved Flores Castellon Family history History of (SNOMED 01/20 NINI Monroe of stroke CVA or CT) Stroke High risk 830570119 Active Lilliana Mahmood Long-term drug meds long (SNOMED 06/15 06/[address]) Family [id number] Removed Susan Castellon Family history History of (SNOMED 01/20 Bubba, of stroke CVA or CT) PA-C Stroke Body mass Z68.28 Active Susan Castellon Body mass index (BMI) (ICD-10-CM 01/20 01/20 Bubba, index (BMI) 28.0-28.9, ) PA-C 28.0-28.9, adult adult Body Mass 207206132 Removed Susan Castellon Finding of Index (SNOMED 01/06 01/06 [place]ubba, body mass 27.0-27.9, CT) PA-C index adult CONGESTIVE 21173391 Inactive Flores Castellon Congestive HEART (SNOMED 05/23 05/23 NINI Monroe heart failure FAILURE CT) ATRIAL 25611553 Inactive Flores Castellon Atrial FIBRILLATION (SNOMED 05/23 05/[address]) Medications Medication Instructions Start Stop Generic Name [facility] Provider Date Date COUMADIN 4 MG One tablet by WARFARIN SODIUM [id number] Stevenson Tee Rees TABS mouth every FLORAL SPECIALIST-C evening METOPROLOL One tablet by METOPROLOL [id number] [place] S SUCCINATE ER 100 mouth daily /25 SUCCINATE MD Fred MG [id number] ELIQUIS 5 MG One tablet by APIXABAN [id number] [place] S TABS mouth twice / MD Fred daily AMIODARONE HCL Two tablets by AMIODARONE HCL [id number] Jose Sood 200 MG TABS mouth MD Lawrence times daily X 3 days then One tablet by mouth twice daily ELIQUIS 5 MG One tablet by APIXABAN 69552487115 Susan Castellon TABS mouth twice /28 Mac, daily PA-C METOPROLOL One tablet by METOPROLOL [id number] Susan Castellon SUCCINATE ER 100 mouth daily /25 SUCCINATE Mac, MG [id number] PA-C ELIQUIS 5 MG One tablet by APIXABAN 55116791028 [place] S TABS mouth twice MD Fred daily XARELTO 20 MG One tablet by RIVAROXABAN 41869694527 [place] S TABS mouth daily / MD Fred ASPIRIN 325 MG One tablet by ASPIRIN 84062442372 Maxim S TABS mouth daily / MD Fred ASPIRIN EC 81 MG One tablet by ASPIRIN 38935736900 Flores M TBEC mouth daily / NINI Monroe MULTIVITAMINS One tablet by MULTIPLE VITAMIN Flores M TABS mouth daily / NINI Monroe VITAMIN D 1000 One tablet by CHOLECALCIFEROL 70123556029 Flores M UNIT TABS mouth daily / NINI Monroe ANTIVERT 25 MG As needed MECLIZINE HCL Flores M TABS / NINI Monroe MELATONIN 3 MG One tablet by MELATONIN [id number] Flores M TABS mouth at NINI Monroe bedtime. As needed NASONEX 50 Take as MOMETASONE [id number] Flores M MCG/ACT SUSP FUROATE NINI Monroe VITAMIN B-12 500 One tablet by CYANOCOBALAMIN 85317817527 Flores M MCG TABS mouth daily / NINI Monroe OMEGA 3 CPDR One tablet by OMEGA-3 FATTY 16818127818 Flores M mouth daily / ACIDS CPDR NINI Monroe XARELTO 20 MG One tablet by RIVAROXABAN 08327908868 Lilliana A Ela TABS mouth daily /02/06 RN METOPROLOL Two tablets by METOPROLOL 37236860401 Susan Castellon SUCCINATE ER 50 mouth daily /25 SUCCINATE Mac, MG [id number] PA-C AMIODARONE HCL Two tablets by AMIODARONE HCL 39497262080 Lilliana A Ela 200 MG TABS mouth twice /04 RN daily X 1 week then One tablet by mouth daily ELIQUIS 5 MG One tablet by APIXABAN 26720410244 Flores M TABS mouth twice /10/02 [facility], RN daily LASIX 40 MG TABS as needed for FUROSEMIDE 69142084792 [place] S LE edema / MD Fred AMIODARONE HCL Two tablets by AMIODARONE HCL 27714629305 Lilliana A Ela 200 MG TABS mouth three / RN times daily X 3 days then One tablet by mouth twice daily AMIODARONE HCL Two tablets by AMIODARONE HCL 63653244919 Lilliana A Eal 200 MG TABS mouth three /06/18 RN times daily X 3 days then One tablet by mouth twice daily ASPIRIN 325 MG One tablet by ASPIRIN 40096940031 Lilliana A Ela TABS mouth daily / RN ASPIRIN 325 MG One tablet by ASPIRIN 19510042707 Flores M TABS mouth daily /20 05/14 [place], RN LASIX 40 MG TABS as needed for FUROSEMIDE 63002082632 Lilliana A Ela LE edema / RN LASIX 40 MG TABS as needed for FUROSEMIDE 10073270179 Flores M LE edema /20 05/14 [place], RN OMEPRAZOLE 40 MG One tablet by OMEPRAZOLE 30562291441 Flores M CPDR mouth twice [facility], RN daily OMEPRAZOLE 40 MG One tablet by OMEPRAZOLE 24292875802 Flores M CPDR mouth twice /10/02 [place], RN daily METOPROLOL One tablet by METOPROLOL 15228318826 Erika K SUCCINATE ER 100 mouth daily / SUCCINATE Viet MG [id number] 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 from report: MULTIVITAMINS One tablet MULTIPLE VITAMIN Erika K TABS by mouth Viet TERRAZAS daily MULTIVITAMINS One tablet 201 MULTIPLE VITAMIN Maxim S TABS by mouth MD Fred daily 22 5 VITAMIN D 1000 One tablet CHOLECALCIFEROL 79212385508 Erika K UNIT TABS by mouth Viet TERRAZAS daily VITAMIN D 1000 One tablet 201 CHOLECALCIFEROL 70060961329 Maxim S UNIT TABS by mouth 4/0 MD Fred daily 06/13 5 LASIX 40 MG TABS One tablet FUROSEMIDE 59540467763 Erika K by mouth Viet TERRAZAS daily LASIX 40 MG TABS One tablet 201 FUROSEMIDE 41547498962 Maxim S by mouth 4/0 MD Fred daily 06/13 5 PRADAXA 150 MG One tablet DABIGATRAN 27353851573 Erika K CAPS by mouth ETEXILATE MESYLATE Viet TERRAZAS twice daily PRADAXA 150 MG One tablet 201 DABIGATRAN 42904104207 Susan Castellon CAPS by mouth 4/0 ETEXILATE MESYLATE Bubba, twice daily 12/11 PA-C 8 METOPROLOL one half METOPROLOL 48221480959 Susan M SUCCINATE ER 100 daily SUCCINATE Mac, MG [id number] PA-C TRAZODONE HCL 50 nightly as TRAZODONE HCL 83038597556 Susan M MG TABS needed Mac, PA-C TRAZODONE HCL 50 nightly as 201 TRAZODONE HCL 31860720264 Maxim S MG TABS needed 5/0 MD Fred 2/2 0 ASPIRIN 81 MG One tablet ASPIRIN 49179360780 Susan M TABS by mouth Mac, daily PA-C ASPIRIN 81 MG One tablet 201 ASPIRIN 59799879193 [place] S TABS by mouth 5/0 MD Fred daily /2 0 METOPROLOL One half METOPROLOL 10935872828 Maxim S SUCCINATE ER 100 tablet by SUCCINATE MD Fred MG [id number] mouth daily OMEPRAZOLE 40 MG One tablet OMEPRAZOLE 53217378613 [place] S CPDR by mouth MD Fred daily as needed OMEPRAZOLE 40 MG One tablet 201 OMEPRAZOLE 29354935521 Susan Castellon CPDR by mouth 5/0 Mac, daily as 01/10 PA-C needed 1 FLONASE 50 Take as FLUTICASONE 57292578155 Susan Castellon MCG/ACT SUSP directed PROPIONATE Mac, PA-C FLONASE 50 Take as 201 FLUTICASONE 65973193943 Susan Castellon MCG/ACT SUSP directed 5/0 PROPIONATE Mac, 01/10 PA-C 1 Medications Administered No information available. Allergies, Adverse Reactions, Alerts Allergy Name Reaction Description Start Date Severity Status Provider ALBUTEROL Irregular heart rate Critical Active Maxim Ibarra MD AMIODARONE Severe dyspnea after Severe Active Lilliana Mahmood RN taking PO Amiodarone CARDIZEM swelling Critical Active Susan Mac, PA-C HYDROCODONE vomiting Moderate Active Erika Llanos RN MORPHINE vomiting Moderate Active Erika Llanos RN ADHESIVE TAPE rash Moderate Active Erika Llanos RN NAPROXEN Moderate Active Erika Llanos RN Results Date Name Value Unit Range Flag Description Office Visit CHD 10YR RSK Not enough information General cardiovascular disease 10Y risk [#] [facility]ost[facility] CARD RSK GRP C cardiac risk group Clinical Lists Update: Preload BNP 237.7 H B-type natriuretic peptide (brain natriuretic peptide) TSH 2.21 u[iU]/mL thyroid stimulating hormone, serum T4, FREE 0.96 ng/dL thyroxine, serum, free T4, TOTAL 9.1 ug/dL thyroxine, serum, total T3 TOTAL 0.91 ng/mL T3, Total T3 FREE 2.5 pg/mL triiodothyronine, free, serum Replaced Document: [facility] ECG Observations EKG INTERP Atrial fibrillation -ST electrocardiogram depression interpretation -Nondiagnostic. ABNORMAL EKG T AXIS 38 deg T wave axis, electrocardiogram EKG QRS AXIS -11 deg QRS axis, electrocardiogram EKG PWAVAXIS 1 deg P wave axis, electrocardiogram QRS INTERVAL 86 ms QRS duration, electrocardiogram QT INTERVAL new path ms QT interval, electrocardiogram VA INTERVAL 0 ms VA interval, electrocardiogram EKGHRTRATE 137 BPM heart rate on electrocardiogram Clinical Lists Update: Preload CARDEFECHO 70 % Left ventricular Ejection fraction Replaced Document: FFP [id number] TRANSFUSED PRODUCT: Fresh GE use only - for [employer] Frozen Plasma import when terms are not COUNT: 1 otherwise specified Lab Report: Prothrombin Time w/INR PT RATIO [...] glucose Office Visit: S/P Lap Melyssa 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 yes Dietary management education, guidance, and counseling (procedure) SMOK STATUS Former smoker Tobacco use [facility] MED[facility] REVIEW Done Documentation of current medications (procedure) FALLRSKASSES No Fall risk assessment Lab Report: Prothrombin Time Fingerstick PROTIME 41.4 SEC 11.9-14.4 H Protime Coumadin Management: Warfarin Calc INR PT [facility] lab Source of INR (PT) measurement PT PATIENT 41.4 s prothrombin time (patient) INR 3.7 international normalized ratio (INR) INR RANGE 2 to 3 international normalized ratio (INR) range Plan of Care Type Date Detail Appointment 03:45 PM Maxim Ibarra MD, [address], [address], [place], [address], Referral Cardiac Referral Ajay Hammond MD, [address], [address], [place], [address] Referral EPS Referral Nathan Mane, [facility], [address] [place] [address], [address] Referral EPS Referral Nathan Mane, [facility], [address] [place] [address], [phone] Referral excluded from report: Pending order Follow Up as needed Pending order EKG (In office) Pending order *PT/INR - Standing Order Pending order MMM Pending order Follow Up Appt 3 months Pending order Pulmonary Function Test - complete Pending order ALLERGIST/IMMUNOLOGIST Pending order Follow Up Appt 6 months Pending order EKG (In office) Pending order MMM Pending order Follow Up Appt 1 month Pending order Transesophageal echocardiogram ([facility]) Pending order Cardioversion Pending order MMM Pending order Follow Up Appt 6 months Pending order ALLERGIST/IMMUNOLOGIST Pending order Follow Up Appt 6 months Pending order EKG (In office) Pending order MMM Pending order Follow Up Appt 6 months Pending order ALLERGIST/IMMUNOLOGIST Pending order Follow Up Appt 3 months Procedures Code Procedure Name Date Entry Date CPT-87391 EKG (In office) Cardiac Referral Cardiac Referral EPS EPS Referral Order excluded from report: F/U MMM MMM FUA 3 months Follow Up Appt 3 months PFT Pulmonary Function Test - complete F/U ALLERGIST/IMMUNOLOGIST ALLERGIST/IMMUNOLOGIST FUA 6 months Follow Up Appt 6 months CPT-63886 EKG (In office) F/U MMM MMM FUA 1 month Follow Up Appt 1 month CV Cardioversion [facility]IS Transesophageal echocardiogram ([facility]) F/U MMM MMM FUA 6 months Follow Up Appt 6 months [facility]-[id number] SNOMED-CT: [id number] Current Medications Documented F/U ALLERGIST/IMMUNOLOGIST ALLERGIST/IMMUNOLOGIST FUA 6 months Follow Up Appt 6 months F/U MMM MMM FUA 6 months Follow Up Appt 6 months CPT-67816 EKG (In office) F/U ALLERGIST/IMMUNOLOGIST ALLERGIST/IMMUNOLOGIST FUA 3 months Follow Up Appt 3 [...]
--- OUTSIDE RECORDS SUMMARY | 2018-05-19 13:51 | XMS RPT_ITS | Clinical Summary ---
:1945 Author Organization [facility], [facility] Address [address] [place] [address] Phone Care Team Providers Name Role Phone Michelle [phone] Conditions or Problems Problem Problem Onset Status Entry Provider Comment Standard Annotate Name Code Date Date Description Cardiomyopa 97438292 Active Lilliana Mahmood Cardiomyopathy thy (SNOMED 10/30 10/[address]) Acute I50.21 Active Lilliana Mahmood Acute systolic systolic (ICD-10-CM 10/30 10/30 RN (congestive) (congestive ) heart failure ) heart failure Acute 45008822 Active Alessio Castellon Acute cholecystit (SNOMED 10/28 10/29 [place] [address] CT) Overweight 661713713 Active Natalie Tee Overweight (SNOMED 10/28 10/[address]) RN Dyspnea 153584362 Active Flores Castellon Dyspnea (SNOMED 10/02 10/[address]) 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 Erika Moody 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 Chronic 436530407 Active Erika Moody Chronic diastolic (SNOMED 05/23 05/[address] Viet [address]) RN failure failure Hx of 372299415 Active Erika Moody Maze procedure pulmonary (SNOMED 09/19 09/19 Viet for atrial vein [address]) RN fibrillation isolation for atrial fib Paroxysmal 852568318 Active Erika Moody Paroxysmal atrial (SNOMED 05/23 05/[address]) RN fibrillation n 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 Flores Castellon 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 Body Mass 656946269 Resolved Flores Castellon Finding of body Index (SNOMED 01/06 01/06 NINI Monroe mass index 27.0-27.9, CT) adult Family 590067359 Resolved Flores Castellon Family history History of (SNOMED 01/20 NINI Monroe of stroke CVA or CT) Stroke High risk 117222728 Active Lilliana Mahmood Long-term drug meds long (SNOMED 06/15 06/[address]) Family 866469802 Removed Susan Castellon Family history History of (SNOMED 01/20 Bubba, of stroke CVA or CT) PA-C Stroke Body mass Z68.28 Active Susan Castellon Body mass index index (BMI) (ICD-10-CM 01/20 01/20 Bubba, (BMI) 28.0-28.9, ) PA-C 28.0-28.9, adult adult Body Mass 870649467 Removed Susan Castellon Finding of body Index (SNOMED 01/06 01/06 Bubba, mass index 27.0-27.9, CT) PA-C adult CONGESTIVE 20517769 Inactive Flores Castellon Congestive HEART (SNOMED 05/23 05/23 NINI Monroe heart failure FAILURE CT) ATRIAL 89910411 Inactive Flores Castellon Atrial FIBRILLATIO (SNOMED 05/23 05/23 NINI [place] fibrillation N CT) Medications Medication Instructions Start Stop Generic Name ND Provider Date Date COUMADIN 2 MG take 1 mg on WARFARIN SODIUM [id number] Courtenay S TABS Tues and Weds, /24 MD Fred 2 mg daliy rest of week or as directed TOPROL XL 50 MG One tablet by METOPROLOL 37460462158 Maxim S [id number] mouth daily /25 SUCCINATE MD Fred COUMADIN 4 MG One tablet by WARFARIN SODIUM [id number] Stevenson Rodriguezder TABS mouth every / REIMBURSEMENT LIAISON-C evening METOPROLOL One tablet by METOPROLOL 42681966491 Maxim S SUCCINATE ER 100 mouth daily /25 SUCCINATE MD Fred MG [id number]-OFE ELIQUIS 5 MG One tablet by APIXABAN 21255829102 Courtenay S TABS mouth twice / MD Fred daily AMIODARONE HCL Two tablets by AMIODARONE HCL 10861404721 Jose Sood 200 MG TABS mouth MD Lawrence times daily X 3 days then One tablet by mouth twice daily ELIQUIS 5 MG One tablet by APIXABAN 32794354591 Susan Castellon TABS mouth twice / Mac, daily PA-C METOPROLOL One tablet by METOPROLOL 58133800853 Susan Castellon SUCCINATE ER 100 mouth daily /25 SUCCINATE Mac, MG [id number]-SZP PA-C ELIQUIS 5 MG One tablet by APIXABAN 82472074487 Maxim S TABS mouth twice / MD Fred daily XARELTO 20 MG One tablet by RIVAROXABAN 79528816073 Maxim S TABS mouth daily / MD Fred ASPIRIN 325 MG One tablet by ASPIRIN 27386155461 Courtenay S TABS mouth daily / MD Fred LASIX 40 MG TABS One tablet by FUROSEMIDE 44989354008 Lilliana A Ela mouth twice / RN daily LASIX 40 MG TABS One tablet by FUROSEMIDE 48618385177 Maxim S mouth twice /10/31 MD Fred daily POTASSIUM One tablet by POTASSIUM 18294157674 Lilliana A Ela CHLORIDE ER 20 mouth daily / CHLORIDE RN MEQ CR-TABS POTASSIUM One tablet by POTASSIUM 47514906625 Courtenay S CHLORIDE ER 20 mouth daily /10/31 CHLORIDE MD Fred MEQ CR-TABS NASONEX 50 Take as MOMETASONE 90928402859 Flores Cande MCG/ACT SUSP FUROATE NINI Monroe NASONEX 50 Take as MOMETASONE 13026135505 Lilliana A Ela MCG/ACT SUSP directed /10/30 FUROATE RN OMEGA 3 CPDR One tablet by OMEGA-3 FATTY 90567303803 Flores M mouth daily / ACIDS CPDR NINI Monroe OMEGA 3 CPDR One tablet by OMEGA-3 FATTY 50704926684 Lilliana A Ela mouth daily /10/30 ACIDS CPDR RN ASPIRIN EC 81 MG One tablet by ASPIRIN 19878259871 Flores M TBEC mouth daily / NINI Monroe ASPIRIN EC 81 MG One tablet by ASPIRIN 32826182406 Lilliana A Ela TBEC mouth daily /10/30 RN DILTIAZEM HCL ER One tablet by DILTIAZEM HCL 13889932448 Lilliana A Ela 180 MG [id number] mouth twice / RN daily DILTIAZEM HCL ER One tablet by DILTIAZEM HCL 83004976840 Maxim S 180 MG [id number]-YQU mouth twice /10/31 MD Fred daily METOPROLOL One tablet by METOPROLOL 46061634696 Lilliana A Ela TARTRATE 100 MG mouth twice / TARTRATE RN TABS daily COUMADIN 2 MG take 1 mg on WARFARIN SODIUM 00658835958 Maxim S TABS and , MD Fred 2 mg daliy rest of week or as directed COUMADIN 1 MG One tablet by WARFARIN SODIUM 92007888151 Flores M TABS mouth daily / NINI Monroe COUMADIN 1 MG One tablet by WARFARIN SODIUM 21092309146 Maxim S TABS mouth daily MD Fred MULTIVITAMINS One tablet by MULTIPLE VITAMIN Flores M TABS mouth daily / NINI Monroe VITAMIN D 1000 One tablet by CHOLECALCIFEROL 77351697192 Flores M UNIT TABS mouth daily / NINI Monroe ANTIVERT 25 MG As needed MECLIZINE HCL Flores M TABS / NINI Monroe MELATONIN 3 MG One tablet by MELATONIN 58409711130 Flores M TABS mouth at [facility], RN bedtime. As needed VITAMIN B-12 500 One tablet by CYANOCOBALAMIN 05975497927 Flores M MCG TABS mouth daily / [place], RN OMEPRAZOLE 40 MG One tablet by OMEPRAZOLE 70247433617 Lilliana A Ela CPDR mouth daily / RN CALCIUM 500 MG One tablet by CALCIUM 03806893214 Lilliana A Ela TABS mouth daily / RN XARELTO 20 MG One tablet by RIVAROXABAN 57949151543 Lilliana A Ela TABS mouth daily /02/06 RN METOPROLOL Two tablets by METOPROLOL 60001950456 Susan Cande SUCCINATE ER 50 mouth daily / SUCCINATE Mac, MG [id number] RENEE-Yves AMIODARONE HCL Two tablets by AMIODARONE HCL 18550758065 Lilliana A Ela 200 MG TABS mouth twice /04 RN daily X 1 week then One tablet by mouth daily ELIQUIS 5 MG One tablet by APIXABAN 18748653823 Flores M TABS mouth twice /10/02 [facility], RN daily LASIX 40 MG TABS as needed for FUROSEMIDE 00435634498 Maxim S LE edema / MD Fred AMIODARONE HCL Two tablets by AMIODARONE HCL 05144122677 Lilliana A Ela 200 MG TABS mouth three /04 RN times daily X 3 days then One tablet by mouth twice daily AMIODARONE HCL Two tablets by AMIODARONE HCL 96681417064 Lilliana A Ela 200 MG TABS mouth three /04 2/07 RN times daily X 3 days then One tablet by mouth twice daily ASPIRIN 325 MG One tablet by ASPIRIN 22087152708 Lilliana A Ela TABS mouth daily /20 RN ASPIRIN 325 MG One tablet by ASPIRIN 55860816426 Flores M TABS mouth daily /20 05/14 [facility], RN LASIX 40 MG TABS as needed for FUROSEMIDE 48233127136 Lilliana A Ela LE edema /20 RN LASIX 40 MG TABS as needed for FUROSEMIDE 30250932725 Flores Castellon LE 05/14 NINI Monroe OMEPRAZOLE 40 MG One tablet by OMEPRAZOLE 55074124021 Flores Castellon CPDR mouth twice Mabel RN daily OMEPRAZOLE 40 MG One tablet by OMEPRAZOLE 97997478887 Flores Castellon CPDR mouth twice /10/02 NINI Monroe daily METOPROLOL One tablet by METOPROLOL 06192882479 Erika K SUCCINATE ER 100 mouth daily SUCCINATE Viet MG [id number]-[id number] 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 excluded from report: MULTIVITAMINS One tablet MULTIPLE VITAMIN Erika K TABS by mouth Viet TERRAZAS daily MULTIVITAMINS One tablet 201 MULTIPLE VITAMIN Maxim S TABS by mouth 4/0 MD Fred daily 2/2 5 VITAMIN D 1000 One tablet CHOLECALCIFEROL 17829952571 Erika K UNIT TABS by mouth Viet TERRAZAS daily VITAMIN D 1000 One tablet 201 CHOLECALCIFEROL 96332373415 Courtenay S UNIT TABS by mouth 4/0 MD Fred daily 2/2 5 LASIX 40 MG TABS One tablet FUROSEMIDE 69266352641 Erika K by mouth Viet TERRAZAS daily LASIX 40 MG TABS One tablet 201 FUROSEMIDE 68659431608 Maxim S by mouth 4/0 MD Fred daily 2/2 5 PRADAXA 150 MG One tablet DABIGATRAN 85243666112 Erika K CAPS by mouth ETEXILATE MESYLATE Viet TERRAZAS twice daily PRADAXA 150 MG One tablet 201 DABIGATRAN 58311055219 Susan Castellon CAPS by mouth 4/0 ETEXILATE MESYLATE Bubba, twice daily 12/11 PA-C 8 METOPROLOL one half METOPROLOL 94758356678 Susan Castellon SUCCINATE ER 100 daily SUCCINATE Mac, MG MM91H-PRE PA-C TRAZODONE HCL 50 nightly as TRAZODONE HCL 66698664174 Ussan M MG TABS needed Mac, PA-C TRAZODONE HCL 50 nightly as 201 TRAZODONE HCL 58081971207 Maxim S MG TABS needed 5/0 MD Fred 2/2 0 ASPIRIN 81 MG One tablet ASPIRIN 01658119968 Susan Castellon TABS by mouth Bubba, daily PA-Yves ASPIRIN 81 MG One tablet 201 ASPIRIN 12512555664 Courtenay S TABS by mouth 5/0 MD Fred daily 2/2 0 METOPROLOL One half METOPROLOL 63884112744 Maxim S SUCCINATE ER 100 tablet by SUCCINATE MD Fred MG [id number]-PRB mouth daily OMEPRAZOLE 40 MG One tablet OMEPRAZOLE 06845701812 Courtenay S CPDR by mouth MD Fred daily as needed OMEPRAZOLE 40 MG One tablet 201 OMEPRAZOLE 41844882657 Susan Castellon CPDR by mouth 5/0 Bubba, daily as 01/10 PA-C needed 1 FLONASE 50 Take as FLUTICASONE 58673449730 Susan Castellon MCG/ACT SUSP directed PROPIONATE Bubba, RENEE-C FLONASE 50 Take as 201 FLUTICASONE 44353854928 Susan Cande MCG/ACT SUSP directed 5/0 PROPIONATE Bubba, 01/10 PA-C 1 Medications Administered No information available. Allergies, Adverse Reactions, Alerts Allergy Name Reaction Start Date Severity Status Provider Description CARDIZEM Unknown No Longer Lilliana Mahmood RN Active ALBUTEROL Irregular heart Critical Active Maxim Ibarra MD rate AMIODARONE Severe dyspnea Severe Active Lilliana Mahmood RN after taking PO Amiodarone CARDIZEM swelling Critical No Longer Susan Castellon Active MARIANNE Mac HYDROCODONE vomiting Moderate Active Erika Llanos RN MORPHINE vomiting Moderate Active Erika Llanos RN ADHESIVE TAPE rash Moderate Active Erika Llanos RN NAPROXEN Moderate Active Erika K Viet RN Results Date Name Value Unit Range Flag Description Office Visit CHD 10YR RSK Not enough information General cardiovascular disease 10Y risk [#] [place]D'Agostino CARD RSK GRP C cardiac risk group [...] glucose Office Visit: S/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 Dietary management education, guidance, and counseling (procedure) SMOK STATUS Former smoker Tobacco use [facility] Lab Report: Prothrombin Time Fingerstick PROTIME 41.4 SEC 11.9-14.4 H Protime Clinical Lists Update: Preload ELDAO 47 % Left ventricular Ejection fraction Replaced [...] INTERVAL new path ms QT interval, electrocardiogram AZ INTERVAL 134 ms [place] interval, electrocardiogram EKGHRTRATE 52 BPM heart rate on electrocardiogram Coumadin Management: Warfarin Calc INR PT SRC Fingerstick Source of INR (PT) measurement PT PATIENT 0 s prothrombin time (patient) INR 2.1 international normalized ratio (INR) INR RANGE 2 to 3 international normalized ratio (INR) range Office Visit MEDS REVIEW Done Documentation of current medications (procedure) FALLRSANA MARÍA No Fall risk assessment Plan of Care Type Date Detail Appointment 03:30 PM Susan Mac PA-C, [address], [address], [place], [address], Referral Cardiac Referral Ajay Hammond MD, [address], [address], [place], [address] Referral EPS Referral [facility] [place], [address] [place] [address], [address] Referral EPS Referral [facility], [address] [place] [address], [address] Referral excluded from report: Pending order MMM Pending order Follow Up Appt 6 months Pending order MMM Pending order Follow Up Appt 4 months Pending order EKG (In office) Pending order Follow Up as needed Pending order EKG (In office) Pending order *PT/INR - Standing Order Pending order MMM Pending order Follow Up Appt 3 months Pending order Pulmonary Function Test - complete Pending order DIRECTOR OF PRODUCT DEVELOPMENT Pending order Follow Up Appt 6 months Pending order EKG (In office) Pending order MMM Pending order Follow Up Appt 1 month Pending order Transesophageal echocardiogram (ARIS) Pending order Cardioversion Pending order MMM Pending order Follow Up Appt 6 months Pending order DIRECTOR OF PRODUCT DEVELOPMENT Pending order Follow Up Appt 6 months Pending order EKG (In office) Pending order MMM Pending order Follow Up Appt 6 months Pending order DIRECTOR OF PRODUCT DEVELOPMENT Pending order Follow Up Appt 3 months Procedures Code Procedure Name Date Entry Date F/U MMM MMM FUA 4 months Follow Up Appt 4 months CPT-54295 EKG (In office) Cardiac Referral Cardiac Referral EPS EPS Referral Order excluded from report: F/U MMM MMM FUA 3 months Follow Up Appt 3 months PFT Pulmonary Function Test - complete F/U DIRECTOR OF PRODUCT DEVELOPMENT DIRECTOR OF PRODUCT DEVELOPMENT FUA 6 months Follow Up Appt 6 months CPT-37437 EKG (In office) F/U MMM MMM FUA 1 month Follow Up Appt 1 month CV Cardioversion ARIS Transesophageal echocardiogram ([facility]) F/U MMM MMM FUA 6 months Follow Up Appt 6 months [id number] SNOMED-CT: [id number] Current Medications Documented F/U DIRECTOR OF PRODUCT DEVELOPMENT DIRECTOR OF PRODUCT DEVELOPMENT FUA 6 months Follow Up Appt 6 months F/U MMM MMM FUA 6 months Follow Up Appt 6 months CPT-71073 EKG (In office) F/U DIRECTOR OF PRODUCT DEVELOPMENT DIRECTOR OF PRODUCT DEVELOPMENT FUA 3 months Follow Up Appt 3 months Vital Signs Date Name Value Unit Description BMI (Body Mass Index) 27.44 kg/m2 Body Mass Index [Ratio] BP Diastolic 60 mm[Hg] blood pressure, diastolic - 8462-4 BP Systolic 130 mm[Hg] blood pressure, systolic - 8480-6 Heart Rate 52 /min pulse rate E&M - 8867-4 Height 60 [in_us] height E&M - 8302-2 Respiratory Rate 20 /min respiratory rate E&M - 9279-1 Weight Measured 140.5 [lb_av] weight E&M - 3141-9 Body Temperature 98.1 [degF] temperature E&M Body Temperature 36.72 Brittanie temperature in centigrade E&M BSA (Body Surface Area) 1.58 body surface area Height 152.40 cm height in centimeters E&M Weight Measured 61.23 kg weight in kilograms E&M
--- OUTSIDE RECORDS SUMMARY | 2018-05-19 13:51 | XMS RPT_ITS | Clinical Summary ---
:1945 Author Organization [facility], [facility] Address [address] [place] [address] Phone Care Team Providers Name Role Phone Michelle [phone] Conditions or Problems Problem Problem Onset Status Entry Provider Comment Standard Annotate Name Code Date Date Description Cardiomyopa 10958798 Active Lilliana Mahmood Cardiomyopathy thy (SNOMED 10/30 10/[address]) Acute I50.21 Active Lilliana Mahmood Acute systolic systolic (ICD-10-CM 10/30 10/30 RN (congestive) (congestive ) heart failure ) heart failure Acute 00520315 Active Alessio Csatellon Acute cholecystit (SNOMED 10/28 10/29 [place] [address] CT) Overweight 614189928 Active Natalie Tee Overweight (SNOMED 10/28 10/[address]) RN Dyspnea 006851344 Active Flores Castellon Dyspnea (SNOMED 10/02 10/[address]) 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 Erika Moody 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 Chronic 375914693 Active Erika Moody Chronic diastolic (SNOMED 05/23 05/[address] [place] [address]) RN failure failure Hx of 655358622 Active Erika Moody Maze procedure pulmonary (SNOMED 09/19 09/19 Viet for atrial vein [address]) RN fibrillation isolation for atrial fib Paroxysmal 921381435 Active Erika Moody Paroxysmal atrial (SNOMED 05/23 05/[address]) RN fibrillation n 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 Flores Castellon 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 Body Mass 834168644 Resolved Flores Castellon Finding of body Index (SNOMED 01/06 01/06 NINI [place] mass index 27.0-27.9, CT) adult Family [id number] Resolved Flores Castellon Family history History of (SNOMED 01/20 NINI [place] of stroke CVA or CT) Stroke High risk 501317251 Active Lilliana Mahmood Long-term drug meds long (SNOMED 06/15 06/[address]) Family [id number] Removed Susan Castellon Family history History of (SNOMED 01/20 Bubba, of stroke CVA or CT) PA-C Stroke Body mass Z68.28 Active Susan Castellon Body mass index index (BMI) (ICD-10-CM 01/20 01/20 Bubba, (BMI) 28.0-28.9, ) PA-C 28.0-28.9, adult adult Body Mass 344100663 Removed Susan Castellon Finding of body Index (SNOMED 01/06 01/06 Bubba, mass index 27.0-27.9, CT) PA-C adult CONGESTIVE 46407275 Inactive Flores Castellon Congestive HEART (SNOMED 05/23 05/23 NINI [place] heart failure FAILURE CT) ATRIAL [id number] Inactive Flores Castellon Atrial FIBRILLATIO (SNOMED 05/23 05/23 NINI [place] fibrillation N CT) Medications Medication Instructions Start Stop Generic Name ND Provider Date Date COUMADIN 2 MG take 1 mg on WARFARIN SODIUM [id number] [place] S TABS Tues and Weds, /24 MD Fred 2 mg daliy rest of week or as directed TOPROL XL 50 MG One tablet by METOPROLOL [id number] Maxim S [id number] mouth daily /25 SUCCINATE MD Fred COUMADIN 4 MG One tablet by WARFARIN SODIUM 72572943656 Stevenson Rodriguezder TABS mouth every / [employer]-C evening METOPROLOL One tablet by METOPROLOL [id number] Maxim S SUCCINATE ER 100 mouth daily /25 SUCCINATE MD Fred MG [id number] ELIQUIS 5 MG One tablet by APIXABAN 28842398140 [place] S TABS mouth twice / MD Fred daily AMIODARONE HCL Two tablets by AMIODARONE HCL [id number] Jose Sood 200 MG TABS mouth MD Lawrence times daily X 3 days then One tablet by mouth twice daily ELIQUIS 5 MG One tablet by APIXABAN [id number] Susan Castellon TABS mouth twice / Mac, daily PA-C METOPROLOL One tablet by METOPROLOL [id number] Susan Castellon SUCCINATE ER 100 mouth daily /25 SUCCINATE Mac, MG [id number] PA-C ELIQUIS 5 MG One tablet by APIXABAN [id number] Maxim S TABS mouth twice / MD Fred daily XARELTO 20 MG One tablet by RIVAROXABAN 39820897804 Maxim S TABS mouth daily / MD Fred ASPIRIN 325 MG One tablet by ASPIRIN [id number] [place] S TABS mouth daily / MD Fred LASIX 40 MG TABS One tablet by FUROSEMIDE 75786098375 Lilliana A Ela mouth twice / RN daily LASIX 40 MG TABS One tablet by FUROSEMIDE 90686761874 Maxim S mouth twice /10/31 MD Fred daily POTASSIUM One tablet by POTASSIUM [id number] Lilliana A Ela CHLORIDE ER 20 mouth daily / CHLORIDE RN MEQ CR-TABS POTASSIUM One tablet by POTASSIUM [id number] [place] S CHLORIDE ER 20 mouth daily /10/31 CHLORIDE MD Fred MEQ CR-TABS NASONEX 50 Take as MOMETASONE 69549224764 Flores Cande MCG/ACT SUSP FUROATE NINI [place] NASONEX 50 Take as MOMETASONE 84174299250 Lilliana A Ela MCG/ACT SUSP directed /10/30 FUROATE RN OMEGA 3 CPDR One tablet by OMEGA-3 FATTY 68746742471 Flores M mouth daily / ACIDS CPDR NINI Monroe OMEGA 3 CPDR One tablet by OMEGA-3 FATTY 23034401435 Lilliana A Ela mouth daily /10/30 ACIDS CPDR RN ASPIRIN EC 81 MG One tablet by ASPIRIN 00148240988 Flores M TBEC mouth daily / NINI [place] ASPIRIN EC 81 MG One tablet by ASPIRIN 92461155695 Lilliana A Ela TBEC mouth daily /10/30 RN DILTIAZEM HCL ER One tablet by DILTIAZEM HCL 12106298931 Lilliana A Ela 180 MG [id number] mouth twice / RN daily DILTIAZEM HCL ER One tablet by DILTIAZEM HCL 80788626488 Maxim S 180 MG [id number] mouth twice /10/31 MD Fred daily METOPROLOL One tablet by METOPROLOL 73726723630 Lilliana A Ela TARTRATE 100 MG mouth twice / TARTRATE RN TABS daily COUMADIN 2 MG take 1 mg on WARFARIN SODIUM 54054309591 Maxim S TABS and , MD Fred 2 mg daliy rest of week or as directed COUMADIN 1 MG One tablet by WARFARIN SODIUM 30538904000 Flores M TABS mouth daily / NINI [place] COUMADIN 1 MG One tablet by WARFARIN SODIUM 66406437898 Maxim S TABS mouth daily MD Fred MULTIVITAMINS One tablet by MULTIPLE VITAMIN Flores M TABS mouth daily / NINI [place] VITAMIN D 1000 One tablet by CHOLECALCIFEROL 82672910689 Flores M UNIT TABS mouth daily / NINI Monroe ANTIVERT 25 MG As needed MECLIZINE HCL Flores M TABS / NINI [place] MELATONIN 3 MG One tablet by MELATONIN 08842775005 Flores M TABS mouth at [facility] [place], RN bedtime. As needed VITAMIN B-12 500 One tablet by CYANOCOBALAMIN 05650872898 Flores M MCG TABS mouth daily / [place], RN OMEPRAZOLE 40 MG One tablet by OMEPRAZOLE 31378337318 Lilliana A Ela CPDR mouth daily / RN CALCIUM 500 MG One tablet by CALCIUM 20509946436 Lilliana A Ela TABS mouth daily / RN XARELTO 20 MG One tablet by RIVAROXABAN 89095900062 Lilliana A Lea TABS mouth daily /02/06 RN METOPROLOL Two tablets by METOPROLOL 79257307127 Susan Cande SUCCINATE ER 50 mouth daily / SUCCINATE Mac, MG [id number] RENEE-Yves AMIODARONE HCL Two tablets by AMIODARONE HCL 47237553857 Lilliana A Ela 200 MG TABS mouth twice /04 RN daily X 1 week then One tablet by mouth daily ELIQUIS 5 MG One tablet by APIXABAN 51083423432 Flores M TABS mouth twice /10/02 [facility], RN daily LASIX 40 MG TABS as needed for FUROSEMIDE 35620733885 Maxim S LE edema / MD Fred AMIODARONE HCL Two tablets by AMIODARONE HCL 66053347298 Lilliana A Ela 200 MG TABS mouth three /04 RN times daily X 3 days then One tablet by mouth twice daily AMIODARONE HCL Two tablets by AMIODARONE HCL 12614610257 Lilliana A Ela 200 MG TABS mouth three /04 2/07 RN times daily X 3 days then One tablet by mouth twice daily ASPIRIN 325 MG One tablet by ASPIRIN 73955977596 Lilliana A Ela TABS mouth daily /20 RN ASPIRIN 325 MG One tablet by ASPIRIN 59489793084 Flores M TABS mouth daily /20 05/14 [facility] [place], RN LASIX 40 MG TABS as needed for FUROSEMIDE 22112419147 Lilliana A Ela LE edema /20 RN LASIX 40 MG TABS as needed for FUROSEMIDE 30209442747 Flores Castellon LE 05/14 NINI Monroe OMEPRAZOLE 40 MG One tablet by OMEPRAZOLE 59506564814 Flores Castellon CPDR mouth twice Mabel RN daily OMEPRAZOLE 40 MG One tablet by OMEPRAZOLE 97365477850 Flores Castellon CPDR mouth twice /10/02 NINI [place] daily METOPROLOL One tablet by METOPROLOL 24683256391 Erika K SUCCINATE ER 100 mouth daily SUCCINATE Viet MG [id number] library page excluded from report: MULTIVITAMINS One tablet MULTIPLE VITAMIN Erika K TABS by mouth Viet TERRAZAS daily MULTIVITAMINS One tablet 201 MULTIPLE VITAMIN Maxim S TABS by mouth 4/0 MD Fred daily 2/2 5 VITAMIN D 1000 One tablet CHOLECALCIFEROL 49751222349 Erika K UNIT TABS by mouth Viet TERRAZAS daily VITAMIN D 1000 One tablet 201 CHOLECALCIFEROL 83648231564 [place] S UNIT TABS by mouth 4/0 MD Fred daily 2/2 5 LASIX 40 MG TABS One tablet FUROSEMIDE 50316632673 Erika K by mouth Viet TERRAZAS daily LASIX 40 MG TABS One tablet 201 FUROSEMIDE 81475560382 Maxim S by mouth 4/0 MD Fred daily 2/2 5 PRADAXA 150 MG One tablet DABIGATRAN 10552834197 Erika K CAPS by mouth ETEXILATE MESYLATE Viet TERRAZAS twice daily PRADAXA 150 MG One tablet 201 DABIGATRAN 84411830133 Susan Castellon CAPS by mouth 4/0 ETEXILATE MESYLATE Bubba, twice daily 12/11 PA-C 8 METOPROLOL one half METOPROLOL 71309418975 Susan Castellon SUCCINATE ER 100 daily SUCCINATE Mac, MG [id number] PA-C TRAZODONE HCL 50 nightly as TRAZODONE HCL 69386421860 Susan M MG TABS needed Mac, PA-C TRAZODONE HCL 50 nightly as 201 TRAZODONE HCL 95235156604 Maxim S MG TABS needed 5/0 MD Fred 2/2 0 ASPIRIN 81 MG One tablet ASPIRIN 53094782998 Susan Castellon TABS by mouth Bubba, daily PA-Yves ASPIRIN 81 MG One tablet 201 ASPIRIN 21037578003 [place] S TABS by mouth 5/0 MD Fred daily 2/2 0 METOPROLOL One half METOPROLOL 52214019119 Maxim S SUCCINATE ER 100 tablet by SUCCINATE MD Fred MG [id number] mouth daily OMEPRAZOLE 40 MG One tablet OMEPRAZOLE 02423678369 [place] S CPDR by mouth MD Fred daily as needed OMEPRAZOLE 40 MG One tablet 201 OMEPRAZOLE 11175817510 Susan Castellon CPDR by mouth 5/0 Bubba, daily as 01/10 PA-C needed 1 FLONASE 50 Take as FLUTICASONE 38466964129 Susan Castellon MCG/ACT SUSP directed PROPIONATE Bubba, RENEE-C FLONASE 50 Take as 201 FLUTICASONE [id number] Susan Cande MCG/ACT SUSP directed 5/0 PROPIONATE [...] information General cardiovascular disease 10Y risk [#] [place].D'Agostino CARD RSK GRP C cardiac risk group [...] glucose Office Visit: S/P Lap Melyssa 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, [address] [place] [address], [phone] Referral excluded from report: Pending order MMM [...] Pulmonary Function Test - complete Pending order CHIEF MEDIA OFFICER Pending order Follow Up Appt 6 months Pending order EKG (In office) Pending order MMM Pending order Follow Up Appt 1 month Pending order Transesophageal echocardiogram (ARIS) Pending order Cardioversion Pending order MMM Pending order Follow Up Appt 6 months Pending order CHIEF MEDIA OFFICER Pending order Follow Up Appt 6 months Pending order EKG (In office) Pending order MMM Pending order Follow Up Appt 6 months Pending order CHIEF MEDIA OFFICER Pending order Follow Up Appt 3 months Procedures Code Procedure Name Date Entry Date F/U MMM MMM FUA 4 months Follow Up Appt 4 months CPT-32820 EKG (In office) Cardiac Referral Cardiac Referral EPS EPS Referral Order excluded from report: F/U MMM MMM FUA 3 months Follow Up Appt 3 months PFT Pulmonary Function Test - complete F/U CHIEF MEDIA OFFICER CHIEF MEDIA OFFICER FUA 6 months Follow Up Appt 6 months CPT-89935 EKG (In office) F/U MMM MMM FUA 1 month Follow Up Appt 1 month CV Cardioversion ARIS Transesophageal echocardiogram ([facility]IS) F/U MMM MMM FUA 6 months Follow Up Appt 6 months SCT-[id number] SNOMED-CT: [id number] Current Medications Documented F/U CHIEF MEDIA OFFICER CHIEF MEDIA OFFICER FUA 6 months Follow Up Appt 6 months F/U MMM MMM FUA 6 months Follow Up Appt 6 months CPT-09061 EKG (In office) F/U CHIEF MEDIA OFFICER CHIEF MEDIA OFFICER FUA 3 months Follow Up Appt 3 [...]
--- OUTSIDE RECORDS SUMMARY | 2018-05-19 13:51 | XMS RPT_ITS ---
:1945 Author Organization [place] [facility] Address [address] [place] [address] Phone Care Team Providers Name Role Phone LinkLogic Unavailable Conditions or Problems Problem Name Problem Onset Status Entry Provider Comment Standard Annotate Code Date Date Description Dyspnea 390900891 Active Flores Castellon Dyspnea (SNOMED 10/02 10/[address]) 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 Erika Moody 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 Chronic 170284293 Active Erika Moody Chronic diastolic (SNOMED 05/23 05/[address]) 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 failure failure Hx of 421963923 Active Erika Moody Maze procedure pulmonary (SNOMED 09/19 09/19 Viet for atrial vein CT) RN fibrillation isolation for atrial fib Paroxysmal 337921658 Active Erika Moody Paroxysmal atrial (SNOMED 05/23 05/[address]) RN fibrillation 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 Flores Castellon 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 Body Mass 132020449 Resolved Flores Castellon Finding of Index (SNOMED 01/06 01/06 NINI [place] body mass 27.0-27.9, CT) index adult Family [id number] Resolved Flores Castellon Family history History of (SNOMED 01/20 NINI [place] of stroke CVA or CT) Stroke High risk 745166519 Active Lilliana Mahmood Long-term drug meds long (SNOMED 06/15 06/15 RN therapy term use CT) Family [id number] Removed Susan Castellon Family history History of (SNOMED 01/20 Bubba, of stroke CVA or CT) PA-C Stroke Body mass Z68.28 Active Susan Castellon Body mass index (BMI) (ICD-10-CM 01/20 01/20 Bubba, index (BMI) 28.0-28.9, ) PA-C 28.0-28.9, adult adult Body Mass 273271957 Removed Susan Castellon Finding of Index (SNOMED 01/06 01/06 Bubba, body mass 27.0-27.9, CT) PA-C index adult CONGESTIVE 20740217 Inactive Flores Castellon Congestive HEART (SNOMED 05/23 05/23 NINI [place] heart failure FAILURE CT) ATRIAL [id number] Inactive Flores Castellon Atrial FIBRILLATION (SNOMED 05/23 05/[address]) Medications Medication Instructions Start Stop Generic Name [facility] Provider Date Date COUMADIN 4 MG One tablet by WARFARIN SODIUM [id number] Stevenson Rees TABS mouth every / BILLING SPEC-C evening METOPROLOL One tablet by METOPROLOL [id number] Maxim S SUCCINATE ER 100 mouth daily /25 SUCCINATE MD Fred MG [id number] ELIQUIS 5 MG One tablet by APIXABAN 20452053684 Maxim S TABS mouth twice / MD Fred daily AMIODARONE HCL Two tablets by AMIODARONE HCL [id number] Jose Sood 200 MG TABS mouth MD Lawrence times daily X 3 days then One tablet by mouth twice daily ELIQUIS 5 MG One tablet by APIXABAN 84419715669 Susan Castellon TABS mouth twice /28 Mac, daily PA-C METOPROLOL One tablet by METOPROLOL 71222085679 Susan Castellon SUCCINATE ER 100 mouth daily /25 SUCCINATE Mac, MG [id number] PA-C ELIQUIS 5 MG One tablet by APIXABAN 82029445039 Geraldine S TABS mouth twice / MD Fred daily XARELTO 20 MG One tablet by RIVAROXABAN 96581549998 Maxim S TABS mouth daily / MD Fred ASPIRIN 325 MG One tablet by ASPIRIN 10988178435 Geraldine S TABS mouth daily / MD Fred ASPIRIN EC 81 MG One tablet by ASPIRIN 86514866410 Flores M TBEC mouth daily / NINI [place] MULTIVITAMINS One tablet by MULTIPLE VITAMIN Flores M TABS mouth daily / Mabel, NINI VITAMIN D 1000 One tablet by CHOLECALCIFEROL 86006851262 Flores M UNIT TABS mouth daily / Mabel, NINI ANTIVERT 25 MG As needed MECLIZINE HCL Flores M TABS / NINI [place] MELATONIN 3 MG One tablet by MELATONIN 92256001755 Flores M TABS mouth at / NINI [place] bedtime. As needed NASONEX 50 Take as MOMETASONE 10221356506 Flores M MCG/ACT SUSP FUROATE NINI [place] VITAMIN B-12 500 One tablet by CYANOCOBALAMIN 15244836524 Flores M MCG TABS mouth daily / NINI [place] OMEGA 3 CPDR One tablet by OMEGA-3 FATTY 88696515534 Flores M mouth daily / ACIDS CPDR NINI [place] XARELTO 20 MG One tablet by RIVAROXABAN 07902838287 Lilliana A Ela TABS mouth daily /02/06 RN METOPROLOL Two tablets by METOPROLOL 74456944782 Susan Castellon SUCCINATE ER 50 mouth daily /25 SUCCINATE Mac, MG [id number] PA-C AMIODARONE HCL Two tablets by AMIODARONE HCL 32007640327 Lilliana A Ela 200 MG TABS mouth twice / RN daily X 1 week then One tablet by mouth daily ELIQUIS 5 MG One tablet by APIXABAN 94854620656 Flores M TABS mouth twice /10/02 NINI [place] daily LASIX 40 MG TABS as needed for FUROSEMIDE 54769425359 Geraldine S LE edema / MD Fred AMIODARONE HCL Two tablets by AMIODARONE HCL 02207647467 Lilliana A Ela 200 MG TABS mouth three RN times daily X 3 days then One tablet by mouth twice daily AMIODARONE HCL Two tablets by AMIODARONE HCL 78444406774 Lilliana A Ela 200 MG TABS mouth three 06/18 RN times daily X 3 days then One tablet by mouth twice daily ASPIRIN 325 MG One tablet by ASPIRIN 70570816637 Lilliana A Ela TABS mouth daily /20 RN ASPIRIN 325 MG One tablet by ASPIRIN 86577640653 Flores M TABS mouth daily /20 05/14 Mabel, RN LASIX 40 MG TABS as needed for FUROSEMIDE 70299161456 Lilliana A Ela LE edema / RN LASIX 40 MG TABS as needed for FUROSEMIDE 51956818589 Flores M LE edema /20 05/14 Mabel, RN OMEPRAZOLE 40 MG One tablet by OMEPRAZOLE 66793217248 Flores M CPDR mouth twice / [facility], RN daily OMEPRAZOLE 40 MG One tablet by OMEPRAZOLE 23209058996 Flores M CPDR mouth twice /10/02 [place], RN daily METOPROLOL One tablet by METOPROLOL 11909486334 Erika K SUCCINATE ER 100 mouth daily / SUCCINATE Viet MG 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 from report: MULTIVITAMINS One tablet MULTIPLE VITAMIN Erika K TABS by mouth Viet TERRAZAS daily MULTIVITAMINS One tablet 201 MULTIPLE VITAMIN Geraldine S TABS by mouth 4/0 MD Fred daily 2/2 5 VITAMIN D 1000 One tablet CHOLECALCIFEROL 98419912742 Erika K UNIT TABS by mouth Viet TERRAZAS daily VITAMIN D 1000 One tablet 201 CHOLECALCIFEROL 99679086921 Maxim S UNIT TABS by mouth 4/0 MD Fred daily 2/2 5 LASIX 40 MG TABS One tablet FUROSEMIDE 05268475307 Erika K by mouth Viet TERRAZAS daily LASIX 40 MG TABS One tablet 201 FUROSEMIDE 33082919696 Geraldine S by mouth 4/0 MD Fred daily 2/2 5 PRADAXA 150 MG One tablet DABIGATRAN 01222909623 Erika Heidy CAPS by mouth ETEXILATE MESYLATE Viet TERRAZAS twice daily PRADAXA 150 MG One tablet 201 DABIGATRAN 12451591427 Susan Castellon CAPS by mouth 4/0 ETEXILATE MESYLATE Bubba, twice daily 12/11 PA-C 8 METOPROLOL one half METOPROLOL 71048359823 Susan Castellon SUCCINATE ER 100 daily SUCCINATE Mac, MG [id number]-[id number] PA-C TRAZODONE HCL 50 nightly as TRAZODONE HCL 87672820656 Susan Castellon MG TABS needed Mac, PA-C TRAZODONE HCL 50 nightly as 201 TRAZODONE HCL 02150579793 Maxim S MG TABS needed 5/0 MD Fred / 0 ASPIRIN 81 MG One tablet ASPIRIN 80724692429 Susan Castellon TABS by mouth Mac, daily PA-C ASPIRIN 81 MG One tablet 201 ASPIRIN 51003881569 Geraldine S TABS by mouth 5/0 MD Fred daily /2 0 METOPROLOL One half METOPROLOL 28990871372 Maxim S SUCCINATE ER 100 tablet by SUCCINATE MD Fred MG [id number] mouth daily OMEPRAZOLE 40 MG One tablet OMEPRAZOLE 72769609239 Geraldine S CPDR by mouth MD Fred daily as needed OMEPRAZOLE 40 MG One tablet 201 OMEPRAZOLE 61605114951 Susan Castellon CPDR by mouth 5/0 Bubba, daily as 01/10 PA-C needed 1 FLONASE 50 Take as FLUTICASONE 70830805072 Susan Castellon MCG/ACT SUSP directed PROPIONATE Mac, PA-C FLONASE 50 Take as 201 FLUTICASONE 01189530292 Susan Castellon MCG/ACT SUSP directed 5/0 PROPIONATE Bubba 01/10 MARIANNE 1 Medications Administered No information available. Allergies, Adverse Reactions, Alerts Allergy Name Reaction Description Start Date Severity Status Provider ALBUTEROL Irregular heart rate Critical Active Maxim Ibarra MD AMIODARONE Severe dyspnea after Severe Active Lilliana Mahmood RN taking PO Amiodarone CARDIZEM swelling Critical Active Susan Mac PA-C HYDROCODONE vomiting Moderate Active Erika Llanos RN MORPHINE vomiting Moderate Active Erika Llanos RN ADHESIVE TAPE rash Moderate Active Erika Llanos RN NAPROXEN Moderate Active Erika Llanos RN Results Date Name Value Unit Range Flag Description Office Visit CHD 10YR RSK Not enough information General cardiovascular disease 10Y risk [#] Aguilar.D'Agostino CARD RSK GRP C cardiac risk group Clinical Lists Update: Preload BNP 237.7 H B-type natriuretic peptide (brain natriuretic peptide) TSH 2.21 u[iU]/mL thyroid stimulating hormone, serum T4, FREE 0.96 ng/dL thyroxine, serum, free T4, TOTAL 9.1 ug/dL thyroxine, serum, total T3 TOTAL 0.91 ng/mL T3, Total T3 FREE 2.5 pg/mL triiodothyronine, free, serum 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 ABNORMAL EKG T AXIS 38 deg T wave axis, electrocardiogram EKG QRS AXIS -11 deg QRS axis, electrocardiogram EKG PWAVAXIS 1 deg P wave axis, electrocardiogram QRS INTERVAL 86 ms QRS duration, electrocardiogram QT INTERVAL new path ms QT interval, electrocardiogram SC INTERVAL 0 ms SC interval, electrocardiogram EKGHRTRATE 137 BPM heart rate on electrocardiogram Clinical Lists Update: Preload CARDEFECHO 70 % Left ventricular Ejection fraction Replaced Document: FFP [id number] TRANSFUSED PRODUCT: Fresh GE use only - for LinkLogic Frozen Plasma import when terms are not COUNT: 1 otherwise specified Lab Report: Prothrombin Time w/INR INR 1.7 international normalized ratio (INR) PT RATIO 19.1 SECONDS 11.7-14.9 H prothrombin [...] SER 115 mg/dL 70-110 H blood glucose Plan of Care Type Date Detail Appointment 01:30 PM Alesiso Galan MD, [address] [facility] [address], [place], [address] Referral Cardiac Referral Ajay Hammond MD, [address] [facility], [facility] [address], [place], [address] Referral EPS Referral [facility] [place], [address] [place] [address], [address] Referral EPS Referral Nathanvalentino Alexandreoud, [facility], [address] [place] [address], [address] Referral excluded from report: Pending order EKG (In office) Pending order *PT/INR - Standing Order Pending order MMM Pending order Follow Up Appt 3 months Pending order Pulmonary Function Test - complete Pending order AIR TRAFFIC COORDINATOR Pending order Follow Up Appt 6 months Pending order EKG (In office) Pending order MMM Pending order Follow Up Appt 1 month Pending order Transesophageal echocardiogram ([facility]) Pending order Cardioversion Pending order MMM Pending order Follow Up Appt 6 months Pending order AIR TRAFFIC COORDINATOR Pending order Follow Up Appt 6 months Pending order EKG (In office) Pending order MMM Pending order Follow Up Appt 6 months Pending order AIR TRAFFIC COORDINATOR Pending order Follow Up Appt 3 months Procedures Code Procedure Name Date Entry Date CPT-95833 EKG (In office) Cardiac Referral Cardiac Referral EPS EPS Referral Order excluded from report: F/U MMM MMM FUA 3 months Follow Up Appt 3 months PFT Pulmonary Function Test - complete F/U AIR TRAFFIC COORDINATOR AIR TRAFFIC COORDINATOR FUA 6 months Follow Up Appt 6 months CPT-08093 EKG (In office) F/U MMM MMM FUA 1 month Follow Up Appt 1 month CV Cardioversion [facility] Transesophageal echocardiogram ([facility]) F/U MMM MMM FUA 6 months Follow Up Appt 6 months [facility]-[id number] SNOMED-CT: 524100261800121 Current Medications Documented F/U AIR TRAFFIC COORDINATOR AIR TRAFFIC COORDINATOR FUA 6 months Follow Up Appt 6 months F/U MMM MMM FUA 6 months Follow Up Appt 6 months CPT-57940 EKG (In office) F/U AIR TRAFFIC COORDINATOR AIR TRAFFIC COORDINATOR FUA 3 months Follow Up Appt 3 months Vital Signs Date Name Value Unit Description BMI (Body Mass Index) 28.32 kg/m2 Body Mass Index [Ratio] BP Diastolic 52 mm[Hg] blood pressure, diastolic - 8462-4 BP Systolic 130 mm[Hg] blood pressure, systolic - 8480-6 BSA (Body Surface Area) 1.63 body surface area Heart Rate 54 /min pulse rate E&M - 8867-4 Height 60 [in_us] height E&M - 8302-2 Respiratory Rate 16 /min respiratory rate E&M - 9279-1 Weight Measured 145 [lb_av] weight E&M - 3141-9
--- OUTSIDE RECORDS SUMMARY | 2018-05-19 13:51 | XMS RPT_ITS | Clinical Summary ---
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 Chronic 109245347 Active Erika Moody Chronic diastolic (SNOMED 05/23 05/[address]) 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 failure failure Hx of 977620695 Active Erika Moody Maze procedure pulmonary (SNOMED 09/19 09/19 Viet for atrial vein CT) RN fibrillation isolation for atrial fib Paroxysmal 316540528 Active Erika Moody Paroxysmal atrial (SNOMED 05/23 05/[address]) RN fibrillation 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 Flores Castellon 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 Body Mass 541127756 Resolved Flores Castellon Finding of Index (SNOMED 01/06 01/06 NINI [place] body mass 27.0-27.9, CT) index adult Family [id number] Resolved Flores Castellon Family history History of (SNOMED 01/20 NINI [place] of stroke CVA or CT) Stroke High risk 390006768 Active Lilliana Mahmood Long-term drug meds long (SNOMED 06/15 06/15 RN therapy term use CT) Family 548587717 Removed Susan Castellon Family history History of (SNOMED 01/20 Bubba, of stroke CVA or CT) PA-C Stroke Body mass Z68.28 Active Susan Castellon Body mass index (BMI) (ICD-10-CM 01/20 01/20 Bubba, index (BMI) 28.0-28.9, ) PA-C 28.0-28.9, adult adult Body Mass 642686621 Removed Susan Castellon Finding of Index (SNOMED 01/06 01/06 Bubba, body mass 27.0-27.9, CT) PA-C index adult CONGESTIVE 51761273 Inactive Flores Castellon Congestive HEART (SNOMED 05/23 05/23 NINI [place] heart failure FAILURE CT) ATRIAL 49390766 Inactive Flores Castellon Atrial FIBRILLATION (SNOMED 05/23 05/[address]) Medications Medication Instructions Start Stop Generic Name [facility] Provider Date Date COUMADIN 4 MG One tablet by WARFARIN SODIUM [id number] Stevenson Rees TABS mouth every / PILOT BOAT CAPTAIN-C evening METOPROLOL One tablet by METOPROLOL 41522921782 Maxim S SUCCINATE ER 100 mouth daily /25 SUCCINATE MD Fred MG [id number] ELIQUIS 5 MG One tablet by APIXABAN 32227623374 Maxim S TABS mouth twice / MD Fred daily AMIODARONE HCL Two tablets by AMIODARONE HCL 44675682795 Jose Sood 200 MG TABS mouth MD Lawrence times daily X 3 days then One tablet by mouth twice daily ELIQUIS 5 MG One tablet by APIXABAN 18823381826 Susan Castellon TABS mouth twice /28 Mac, daily PA-C METOPROLOL One tablet by METOPROLOL 86641923124 Susan Castellon SUCCINATE ER 100 mouth daily /25 SUCCINATE Mac, MG [id number] PA-C ELIQUIS 5 MG One tablet by APIXABAN 89427282901 [place] S TABS mouth twice / MD Fred daily XARELTO 20 MG One tablet by RIVAROXABAN 54386840158 Maxim S TABS mouth daily / MD Fred ASPIRIN 325 MG One tablet by ASPIRIN 43383392575 [place] S TABS mouth daily / MD Fred ASPIRIN EC 81 MG One tablet by ASPIRIN 92602136049 Flores M TBEC mouth daily / NINI [place] MULTIVITAMINS One tablet by MULTIPLE VITAMIN Flores M TABS mouth daily / Mabel, NINI VITAMIN D 1000 One tablet by CHOLECALCIFEROL 78092971438 Flores M UNIT TABS mouth daily / Mabel, NINI ANTIVERT 25 MG As needed MECLIZINE HCL Flores M TABS / NINI [place] MELATONIN 3 MG One tablet by MELATONIN 86374041059 Flores M TABS mouth at / NINI Monroe bedtime. As needed NASONEX 50 Take as MOMETASONE 90035596541 Flores M MCG/ACT SUSP FUROATE NINI [place] VITAMIN B-12 500 One tablet by CYANOCOBALAMIN 21846487338 Flores M MCG TABS mouth daily / NINI Monroe OMEGA 3 CPDR One tablet by OMEGA-3 FATTY 64254625827 Flores M mouth daily / ACIDS CPDR NINI Monroe XARELTO 20 MG One tablet by RIVAROXABAN 12404931187 Lilliana A Ela TABS mouth daily /02/06 RN METOPROLOL Two tablets by METOPROLOL 35151025368 Susan Castellon SUCCINATE ER 50 mouth daily /25 SUCCINATE Mac, MG [id number]-[id number] PA-C AMIODARONE HCL Two tablets by AMIODARONE HCL 76125523347 Lilliana A Ela 200 MG TABS mouth twice / RN daily X 1 week then One tablet by mouth daily ELIQUIS 5 MG One tablet by APIXABAN 33478426206 Flores M TABS mouth twice /10/02 NINI Monroe daily LASIX 40 MG TABS as needed for FUROSEMIDE 63487345532 [place] S LE edema / MD Fred AMIODARONE HCL Two tablets by AMIODARONE HCL 31704822600 Lilliana A Ela 200 MG TABS mouth three RN times daily X 3 days then One tablet by mouth twice daily AMIODARONE HCL Two tablets by AMIODARONE HCL 38685814028 Lilliana A Ela 200 MG TABS mouth three 06/18 RN times daily X 3 days then One tablet by mouth twice daily ASPIRIN 325 MG One tablet by ASPIRIN 71639695220 Lilliana A Ela TABS mouth daily /20 RN ASPIRIN 325 MG One tablet by ASPIRIN 42285983322 Flores M TABS mouth daily /20 05/14 Mabel, RN LASIX 40 MG TABS as needed for FUROSEMIDE 86743635772 Lilliana A Ela LE edema / RN LASIX 40 MG TABS as needed for FUROSEMIDE 93831680631 Flores M LE edema /20 05/14 Mabel, RN OMEPRAZOLE 40 MG One tablet by OMEPRAZOLE 66800171354 Flores M CPDR mouth twice / [facility], RN daily OMEPRAZOLE 40 MG One tablet by OMEPRAZOLE 59106580293 Flores M CPDR mouth twice /10/02 Kil[place], RN daily METOPROLOL One tablet by METOPROLOL 46266227329 Erika K SUCCINATE ER 100 mouth daily / SUCCINATE Viet MG 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: MULTIVITAMINS One tablet MULTIPLE VITAMIN Erika K TABS by mouth Viet TERRAZAS daily MULTIVITAMINS One tablet 201 MULTIPLE VITAMIN [place] S TABS by mouth 4/0 MD Fred daily 2/2 5 VITAMIN D 1000 One tablet CHOLECALCIFEROL 47672011855 Erika K UNIT TABS by mouth Viet TERRAZAS daily VITAMIN D 1000 One tablet 201 CHOLECALCIFEROL 57875146853 Maxim S UNIT TABS by mouth 4/0 MD Fred daily 2/2 5 LASIX 40 MG TABS One tablet FUROSEMIDE 39427805653 Erika K by mouth Viet TERRAZAS daily LASIX 40 MG TABS One tablet 201 FUROSEMIDE 50182938860 [place] S by mouth 4/0 MD Fred daily 2/2 5 PRADAXA 150 MG One tablet DABIGATRAN 12117432965 Erika Heidy CAPS by mouth ETEXILATE MESYLATE Viet TERRAZAS twice daily PRADAXA 150 MG One tablet 201 DABIGATRAN 88447861243 Susan Castellon CAPS by mouth 4/0 ETEXILATE MESYLATE uBbba, twice daily 12/11 PA-C 8 METOPROLOL one half METOPROLOL 74275642827 Susan Castellon SUCCINATE ER 100 daily SUCCINATE Mac, MG SR12N-XXZ PA-C TRAZODONE HCL 50 nightly as TRAZODONE HCL 07394543952 Susan Castellon MG TABS needed Mac, PA-C TRAZODONE HCL 50 nightly as 201 TRAZODONE HCL 42935101062 Maxim S MG TABS needed 5/0 MD Fred / 0 ASPIRIN 81 MG One tablet ASPIRIN 22488450752 Susan Castellon TABS by mouth Mac, daily PA-C ASPIRIN 81 MG One tablet 201 ASPIRIN 68454258672 [place] S TABS by mouth 5/0 MD Fred daily /2 0 METOPROLOL One half METOPROLOL 28586209122 Maxim S SUCCINATE ER 100 tablet by SUCCINATE MD Fred MG [id number] mouth daily OMEPRAZOLE 40 MG One tablet OMEPRAZOLE 78412858131 [place] S CPDR by mouth MD Fred daily as needed OMEPRAZOLE 40 MG One tablet 201 OMEPRAZOLE 76051620271 Susan Castellon CPDR by mouth 5/0 Bubba, daily as 01/10 PA-C needed 1 FLONASE 50 Take as FLUTICASONE 60473016983 Susan Castellon MCG/ACT SUSP directed PROPIONATE Mac, PA-C FLONASE 50 Take as 201 FLUTICASONE 69749464534 Susan Castellon MCG/ACT SUSP directed 5/0 PROPIONATE [...] information General cardiovascular disease 10Y risk [#] Panther Burn.D'Agostino CARD RSK GRP C cardiac risk group Clinical Lists Update: Preload BNP 237.7 H B-type natriuretic peptide (brain natriuretic peptide) TSH 2.21 u[iU]/mL thyroid stimulating hormone, serum T4, FREE 0.96 ng/dL thyroxine, serum, free T4, TOTAL 9.1 ug/dL thyroxine, serum, total T3 TOTAL 0.91 ng/mL T3, Total T3 FREE 2.5 pg/mL triiodothyronine, free, serum MAGNESIUM 1.7 mg/dL L magnesium, serum GLUCOSE SER 105 mg/dL blood glucose BUN/CREAT 22.4 H urea nitrogen/creatinine ratio, serum ANION GAP 6 anion gap, serum RBC M/UL 4.43 10*6/uL red blood count 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 Dietary management education, guidance, and counseling (procedure) MEDS REVIEW Done Documentation of current medications (procedure) SMOK STATUS Former smoker Tobacco use [facility] Clinical Lists Update CALCIUM 8.4 mg/dL calcium, serum CREATININE 0.54 mg/dL creatinine, serum BUN 27.0 mg/dL urea nitrogen, blood CO2 28 mmol/L carbon dioxide, venous blood CHLORIDE 105 mmol/L chloride, serum POTASSIUM 4.0 mmol/L potassium, serum SODIUM 140 mmol/L sodium, serum PLATELETS 236 10*3/mm3 platelet count HCT 36.5 % hematocrit, blood HGB 12.6 g/dL hemoglobin, blood WBC BLOOD 7.30 10*9/L leukocyte (white blood cells) count, blood Replaced Document: Midmark ECG Observations EKG INTERP Atrial fibrillation -ST electrocardiogram depression interpretation -Nondiagnostic. ABNORMAL EKG T AXIS 38 deg T wave axis, electrocardiogram EKG QRS AXIS -11 deg QRS axis, electrocardiogram EKG PWAVAXIS 1 deg P wave axis, electrocardiogram QRS INTERVAL 86 ms QRS duration, electrocardiogram QT INTERVAL new path ms QT interval, electrocardiogram AR INTERVAL 0 ms AR interval, electrocardiogram EKGHRTRATE 137 BPM heart rate [...] SECONDS 11.7-14.9 H prothrombin time, actual/normal, ratio Plan of Care Type Date Detail Referral Cardiac Referral Ajay Hammond MD, [address], [address], [place], [address] Referral EPS Referral Nathan Mane, [facility], [address] [place] [address], [address] Referral EPS Referral Ryan [facility], [address] [place] [address], [address] Referral excluded from report: Pending order EKG (In office) Pending order *PT/INR - Standing Order Pending order MMM Pending order Follow Up Appt 3 months Pending order Pulmonary Function Test - complete Pending order 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 Pending order Follow Up Appt 6 months Pending order EKG (In office) Pending order MMM Pending order Follow Up Appt 1 month Pending order Transesophageal echocardiogram ([facility]) Pending order Cardioversion Pending order MMM Pending order Follow Up Appt 6 months Pending order 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 Pending order Follow Up Appt 6 months Pending order EKG (In office) Pending order MMM Pending order Follow Up Appt 6 months Pending order 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 Pending order Follow Up Appt 3 months Procedures Code Procedure Name Date Entry Date CPT-95897 EKG (In office) Cardiac Referral Cardiac Referral EPS EPS Referral Order excluded from report: F/U MMM MMM FUA 3 months Follow Up Appt 3 months PFT Pulmonary Function Test - complete F/U 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 FUA 6 months Follow Up Appt 6 months CPT-34937 EKG (In office) F/U MMM MMM FUA 1 month Follow Up Appt 1 month CV Cardioversion [facility] Transesophageal echocardiogram ([facility]) F/U MMM MMM FUA 6 months Follow Up Appt 6 months [facility]-[id number] SNOMED-CT: [id number] Current Medications Documented F/U 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 FUA 6 months Follow Up Appt 6 months F/U MMM MMM FUA 6 months Follow Up Appt 6 months CPT-66739 EKG (In office) F/U 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 FUA 3 months Follow Up Appt 3 [...]
--- OUTSIDE RECORDS SUMMARY | 2018-05-19 13:52 | XMS RPT_ITS | Clinical Summary ---
:1945 Author Organization [facility], [facility] Address [address] [place] [address] Phone Care Team Providers Name Role Phone Michelle [phone] Conditions or Problems Problem Problem Onset Status Entry Provider Comment Standard Annotate Name Code Date Date Description Cardiomyopa 59686120 Active Lilliana Mahmood Cardiomyopathy thy (SNOMED 10/30 10/[address]) Acute I50.21 Active Lilliana Mahmood Acute systolic systolic (ICD-10-CM 10/30 10/30 RN (congestive) (congestive ) heart failure ) heart failure Acute 48767860 Active Alessio Castellon Acute cholecystit (SNOMED 10/28 10/29 [place] [address] CT) Overweight 209118270 Active Natalie Tee Overweight (SNOMED 10/28 10/[address]) RN Dyspnea 094505390 Active Flores Castellon Dyspnea (SNOMED 10/02 10/[address]) 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 Erika Moody 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 Chronic 516376112 Active Erika Moody Chronic diastolic (SNOMED 05/23 05/[address] [place] [address]) RN failure failure Hx of 272579288 Active Erika Moody Maze procedure pulmonary (SNOMED 09/19 09/19 Viet for atrial vein [address]) RN fibrillation isolation for atrial fib Paroxysmal 924700714 Active Erika Moody Paroxysmal atrial (SNOMED 05/23 05/[address]) RN fibrillation n 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 Flores Castellon 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 Body Mass 662266437 Resolved Flores Castellon Finding of body Index (SNOMED 01/06 01/06 NINI [place] mass index 27.0-27.9, CT) adult Family [id number] Resolved Flores Castellon Family history History of (SNOMED 01/20 NINI [place] of stroke CVA or CT) Stroke High risk 152077218 Active Lilliana Mahmood Long-term drug meds long (SNOMED 06/15 06/[address]) Family 157098903 Removed Susan Castellon Family history History of (SNOMED 01/20 Bubba, of stroke CVA or CT) PA-C Stroke Body mass Z68.28 Active Susan Castellon Body mass index index (BMI) (ICD-10-CM 01/20 01/20 Bubba, (BMI) 28.0-28.9, ) PA-C 28.0-28.9, adult adult Body Mass 309514557 Removed Susan Castellon Finding of body Index (SNOMED 01/06 01/06 Bubba, mass index 27.0-27.9, CT) PA-C adult CONGESTIVE 91818650 Inactive Flores Castellon Congestive HEART (SNOMED 05/23 05/23 NINI [place] heart failure FAILURE CT) ATRIAL 17750810 Inactive Flores Castellon Atrial FIBRILLATIO (SNOMED 05/23 05/23 NINI [place] fibrillation N CT) Medications Medication Instructions Start Stop Generic Name [facility] Provider Date Date TOPROL XL 50 MG One tablet by METOPROLOL [id number] Maxim S [id number] mouth daily /25 SUCCINATE MD Fred COUMADIN 2 MG take 1 mg on WARFARIN SODIUM 37631599089 [facility] S TABS Tues and Weds, /24 MD Fred 2 mg daliy rest of week or as directed COUMADIN 4 MG One tablet by WARFARIN SODIUM 80803274133 Stevenson Rees TABS mouth every / WINE BLENDER-C evening METOPROLOL One tablet by METOPROLOL 06208097845 [facility] S SUCCINATE ER 100 mouth daily /25 SUCCINATE MD Fred MG [id number] ELIQUIS 5 MG One tablet by APIXABAN 34027260625 Maxim S TABS mouth twice / MD Fred daily AMIODARONE HCL Two tablets by AMIODARONE HCL 36968556678 Jose Sood 200 MG TABS mouth MD Lawrence times daily X 3 days then One tablet by mouth twice daily ELIQUIS 5 MG One tablet by APIXABAN 13290058417 Susan Cande TABS mouth twice / Mac, daily PA-C METOPROLOL One tablet by METOPROLOL 01658946237 Susan Cande SUCCINATE ER 100 mouth daily /25 SUCCINATE Mac, MG [id number] PA-C ELIQUIS 5 MG One tablet by APIXABAN [id number] Maxim S TABS mouth twice / MD Fred daily XARELTO 20 MG One tablet by RIVAROXABAN 66450286805 [facility] S TABS mouth daily / MD Fred ASPIRIN 325 MG One tablet by ASPIRIN [id number] Maxim S TABS mouth daily / MD Fred NASONEX 50 Take as MOMETASONE [id number] Flores M MCG/ACT SUSP directed FUROATE NINI [place] NASONEX 50 Take as MOMETASONE 93836016071 Lilliana A Ela MCG/ACT SUSP directed /10/30 FUROATE RN OMEGA 3 CPDR One tablet by OMEGA-3 FATTY 71909905043 Flores M mouth daily / ACIDS CPDR NINI Monroe OMEGA 3 CPDR One tablet by OMEGA-3 FATTY 93974632471 Lilliana A Ela mouth daily /10/30 ACIDS CPDR NINI ASPIRIN EC 81 MG One tablet by ASPIRIN 82549938516 Flores M TBEC mouth daily / NINI [place] ASPIRIN EC 81 MG One tablet by ASPIRIN 02475716920 Lilliana A Ela TBEC mouth daily /10/30 RN DILTIAZEM HCL ER One tablet by DILTIAZEM HCL 87436564123 Lilliana A Ela 180 MG [id number] mouth twice / RN daily DILTIAZEM HCL ER One tablet by DILTIAZEM HCL 69903599196 [facility] S 180 MG [id number] mouth twice /10/31 MD Fred daily METOPROLOL One tablet by METOPROLOL 18691286639 Lilliana A Ela TARTRATE 100 MG mouth twice / TARTRATE RN TABS daily LASIX 40 MG TABS One tablet by FUROSEMIDE 95934769046 Lilliana A Ela mouth twice / RN daily LASIX 40 MG TABS One tablet by FUROSEMIDE 87695771770 Maxim S mouth twice /10/31 MD Fred daily POTASSIUM One tablet by POTASSIUM 73519504221 Lilliana A Ela CHLORIDE ER 20 mouth daily / CHLORIDE RN MEQ CR-TABS POTASSIUM One tablet by POTASSIUM 89824570445 [facility] S CHLORIDE ER 20 mouth daily /10/31 CHLORIDE MD Fred MEQ CR-TABS MULTIVITAMINS One tablet by MULTIPLE VITAMIN Flores M TABS mouth daily / [facility], RN VITAMIN D 1000 One tablet by CHOLECALCIFEROL 49402902764 Flores M UNIT TABS mouth daily / [facility], RN ANTIVERT 25 MG As needed MECLIZINE HCL Flores M TABS / [facility], RN MELATONIN 3 MG One tablet by MELATONIN 75329951857 Flores M TABS mouth at / [facility], RN bedtime. As needed VITAMIN B-12 500 One tablet by CYANOCOBALAMIN 63515046566 Flores M MCG TABS mouth daily / [place], RN OMEPRAZOLE 40 MG One tablet by OMEPRAZOLE 63366030575 Lilliana A Ela CPDR mouth daily / RN CALCIUM 500 MG One tablet by CALCIUM 00626032160 Lilliana A Ela TABS mouth daily / RN XARELTO 20 MG One tablet by RIVAROXABAN 76970489557 Lilliana A Ela TABS mouth daily /11 02/06 RN METOPROLOL Two tablets by METOPROLOL 21551219033 Susan Castellon SUCCINATE ER 50 mouth daily /25 SUCCINATE Mac, MG [id number] PA-C AMIODARONE HCL Two tablets by AMIODARONE HCL 90037963325 Lilliana A Ela 200 MG TABS mouth twice /04 RN daily X 1 week then One tablet by mouth daily ELIQUIS 5 MG One tablet by APIXABAN 71019925055 Flores M TABS mouth twice /10/02 [place], RN daily LASIX 40 MG TABS as needed for FUROSEMIDE 88231746640 [facility] S LE edema / MD Fred AMIODARONE HCL Two tablets by AMIODARONE HCL 20979462611 Lilliana A Ela 200 MG TABS mouth three /04 RN times daily X 3 days then One tablet by mouth twice daily AMIODARONE HCL Two tablets by AMIODARONE HCL 99629675986 Lilliana A Ela 200 MG TABS mouth three /04 06/18 RN times daily X 3 days then One tablet by mouth twice daily ASPIRIN 325 MG One tablet by ASPIRIN 64374375511 Lilliana A Ela TABS mouth daily /20 RN ASPIRIN 325 MG One tablet by ASPIRIN 90034997489 Flores M TABS mouth daily /20 05/14 Mabel, RN LASIX 40 MG TABS as needed for FUROSEMIDE 44257532486 Lilliana A Ela LE edema /20 RN LASIX 40 MG TABS as needed for FUROSEMIDE 44566969887 Flores M LE edema /20 05/14 [place], RN OMEPRAZOLE 40 MG One tablet by OMEPRAZOLE 78446996655 Flores M CPDR mouth twice [place], RN daily OMEPRAZOLE 40 MG One tablet by OMEPRAZOLE 82063392422 Flores M CPDR mouth twice /10/02 [place]sharon, RN daily METOPROLOL One tablet by METOPROLOL [id number] Erika K SUCCINATE ER 100 mouth daily /20 SUCCINATE Viet MG 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: MULTIVITAMINS One tablet MULTIPLE VITAMIN Erika K TABS by mouth Viet TERRAZAS daily MULTIVITAMINS One tablet 201 MULTIPLE VITAMIN [facility] S TABS by mouth 4/0 MD Fred daily 06/13 5 VITAMIN D 1000 One tablet CHOLECALCIFEROL 91357735017 Erika K UNIT TABS by mouth Viet TERRAZAS daily VITAMIN D 1000 One tablet 201 CHOLECALCIFEROL 61411208578 Maxim S UNIT TABS by mouth 4/0 MD Fred daily 06/13 5 LASIX 40 MG TABS One tablet FUROSEMIDE 42275916896 Erika K by mouth Viet TERRAZAS daily LASIX 40 MG TABS One tablet 201 FUROSEMIDE 37532825474 [facility] S by mouth 4/0 MD Fred daily 06/13 5 PRADAXA 150 MG One tablet DABIGATRAN 75809849324 Erika K CAPS by mouth ETEXILATE MESYLATE Viet TERRAZAS twice daily PRADAXA 150 MG One tablet 201 DABIGATRAN 23969537619 Susan Castellon CAPS by mouth 4/0 ETEXILATE MESYLATE Bubba, twice daily 12/11 PA-C 8 METOPROLOL one half METOPROLOL 65867944289 Susan Castellon SUCCINATE ER 100 daily SUCCINATE Mac, MG [id number] PA-C TRAZODONE HCL 50 nightly as TRAZODONE HCL 79829234288 Susan M MG TABS needed Mac, PA-C TRAZODONE HCL 50 nightly as 201 TRAZODONE HCL 79689458716 Maxim S MG TABS needed 5/0 MD Fred 2/2 0 ASPIRIN 81 MG One tablet ASPIRIN 28473875818 Susan M TABS by mouth Bubba, daily PA-C ASPIRIN 81 MG One tablet 201 ASPIRIN 57398314035 [facility] S TABS by mouth 5/0 MD Fred daily 2/2 0 METOPROLOL One half METOPROLOL 27432229373 Maxim S SUCCINATE ER 100 tablet by SUCCINATE MD Fred MG [id number] mouth daily OMEPRAZOLE 40 MG One tablet OMEPRAZOLE 88009735468 Maxim S CPDR by mouth MD Fred daily as needed OMEPRAZOLE 40 MG One tablet 201 OMEPRAZOLE 09241732510 Susan Castellon CPDR by mouth 5/0 Mac, daily as 01/10 PA-C needed 1 FLONASE 50 Take as FLUTICASONE 63046707108 Susan Castellon MCG/ACT SUSP directed PROPIONATE OLI MacC FLONASE 50 Take as 201 FLUTICASONE 55715056778 Susan Castellon MCG/ACT SUSP directed 5/0 PROPIONATE Mac, 01/10 PA-C 1 Medications Administered No information available. 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 HEALTH NURSE yes Dietary management education, guidance, and counseling (procedure) SMOK STATUS Former smoker Tobacco use [facility] Lab Report: Prothrombin Time Fingerstick PROTIME 41.4 SEC 11.9-14.4 H Protime Coumadin Management: Warfarin Calc INR PT [facility] Hospital lab Source of INR (PT) [...] INTERVAL new path ms QT interval, electrocardiogram [place] INTERVAL 134 ms [place] interval, electrocardiogram EKGHRTRATE 52 BPM heart rate on electrocardiogram Plan of Care Type Date Detail Appointment 03:30 PM Maxim Ibarra MD, [address] [facility], [address], [place], [address], Referral Cardiac Referral Ajay Hammond MD, [address], [facility] [address], [place], [address] Referral [facility] Ref[facility] [place], [address] [place] [address], [address] Referral EPS Referral Nathan [facility] [place], [address] [place] [address], [address] Referral excluded from report: Pending order MMM Pending order Follow Up Appt 4 months Pending order EKG (In office) Pending order Follow Up as needed Pending order EKG (In office) Pending order *PT/INR - Standing Order Pending order MMM Pending order Follow Up Appt 3 months Pending order Pulmonary Function Test - complete Pending order 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 ADOPTION 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 Pending order Follow Up Appt 6 months Pending order EKG (In office) Pending order MMM Pending order Follow Up Appt 1 month Pending order Transesophageal echocardiogram ([facility]IS) Pending order Cardioversion Pending order MMM Pending order Follow Up Appt 6 months Pending order POST ADOPTION COORDINATOR Pending order Follow Up Appt 6 months Pending order EKG (In office) Pending order MMM Pending order Follow Up Appt 6 months Pending order POST ADOPTION COORDINATOR Pending order Follow Up Appt 3 months Procedures Code Procedure Name Date Entry Date F/U MMM MMM FUA 4 months Follow Up Appt 4 months CPT-89813 EKG (In office) Cardiac Referral Cardiac Referral EPS EPS Referral Order excluded from report: F/U MMM MMM FUA 3 months Follow Up Appt 3 months PFT Pulmonary Function Test - complete F/U POST ADOPTION COORDINATOR POST ADOPTION COORDINATOR FUA 6 months Follow Up Appt 6 months CPT-44084 EKG (In office) F/U MMM MMM FUA 1 month Follow Up Appt 1 month CV Cardioversion ARIS Transesophageal echocardiogram ([facility]) F/U MMM MMM FUA 6 months Follow Up Appt 6 months SCT-[id number] SNOMED-CT: [id number] Current Medications Documented F/U POST ADOPTION COORDINATOR POST ADOPTION COORDINATOR FUA 6 months Follow Up Appt 6 months F/U MMM MMM FUA 6 months Follow Up Appt 6 months CPT-05026 EKG (In office) F/U POST ADOPTION COORDINATOR POST ADOPTION COORDINATOR FUA 3 months Follow Up Appt [...]
--- OUTSIDE RECORDS SUMMARY | 2018-05-19 13:52 | XMS RPT_ITS | Clinical Summary ---
:[address] [facility] Address [address] [place] [id number] Phone Care Team Providers Name Role Phone Lilliana Mahmood RN Unavailable Unavailable Conditions or Problems Problem Problem Onset Status Entry Provider Comment Standard Annotate Name Code Date Date Description Cardiomyopa 09935235 Active Lilliana Mahmood Cardiomyopathy thy (SNOMED 10/30 10/[address]) Acute I50.21 Active Lilliana Mahmood Acute systolic systolic (ICD-10-CM 10/30 10/30 RN (congestive) (congestive ) heart failure ) heart failure Acute 58397169 Active Alessio Castellon Acute cholecystit (SNOMED 10/28 10/[address] [place] [address]) Overweight 339990719 Active Natalie Tee Overweight (SNOMED 10/28 10/[address]) RN Dyspnea 719897339 Active Flores Castellon Dyspnea (SNOMED 10/02 10/[address]) 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 Erika Moody 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 Chronic 951092800 Active Erika Moody Chronic diastolic (SNOMED 05/23 05/[address] Viet [address] heart [address]) RN failure failure Hx of 440669518 Active Erika Moody Maze procedure pulmonary (SNOMED 09/19 09/19 Viet for atrial vein CT) RN fibrillation isolation for atrial fib Paroxysmal 678263712 Active Erika Moody Paroxysmal atrial (SNOMED 05/23 05/[address]) RN fibrillation n 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 Flores Castellon 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 Body Mass 821278570 Resolved Flores Castellon Finding of body Index (SNOMED 01/06 01/06 NINI [place] mass index 27.0-27.9, CT) adult Family [id number] Resolved Flores Castellon Family history History of (SNOMED 01/20 NINI [place] of stroke CVA or CT) Stroke High risk 985729342 Active Lilliana Nay Mahmood Long-term drug meds long (SNOMED 06/15 06/[address]) Family [id number] Removed Susan Castellon Family history History of (SNOMED 01/20 Bubba, of stroke CVA or CT) PA-C Stroke Body mass Z68.28 Active Susan Castellon Body mass index index (BMI) (ICD-10-CM 01/20 01/20 Bubba, (BMI) 28.0-28.9, ) PA-C 28.0-28.9, adult adult Body Mass 438113487 Removed Susan Castellon Finding of body Index (SNOMED 01/06 01/06 Bubba, mass index 27.0-27.9, CT) PA-C adult CONGESTIVE 89689149 Inactive Flores Castellon Congestive HEART (SNOMED 05/23 05/23 NINI [place] heart failure FAILURE CT) ATRIAL 53452508 Inactive Flores Castellon Atrial FIBRILLATIO (SNOMED 05/23 05/23 NINI [place] fibrillation N CT) Medications Medication Instructions Start Stop Generic Name NDC Provider Date Date COUMADIN 4 MG One tablet by WARFARIN SODIUM [id number] Stevenson A Rees TABS mouth every /24 [employer]-C evening METOPROLOL One tablet by METOPROLOL 53630231780 Maxim S SUCCINATE ER 100 mouth daily /25 SUCCINATE MD Fred MG [id number] ELIQUIS 5 MG One tablet by APIXABAN 29606315654 Sherman S TABS mouth twice /28 MD Fred daily AMIODARONE HCL Two tablets by AMIODARONE HCL 57905779804 Jose Sood 200 MG TABS mouth three / MD Lawrence times daily X 3 days then One tablet by mouth twice daily ELIQUIS 5 MG One tablet by APIXABAN 50768495390 Susan Castellon TABS mouth twice /28 Mac, daily PA-C METOPROLOL One tablet by METOPROLOL [id number] Susan Castellon SUCCINATE ER 100 mouth daily /25 SUCCINATE Mac, MG [id number] PA-C ELIQUIS 5 MG One tablet by APIXABAN 66969310617 Maxim S TABS mouth twice / MD Fred daily XARELTO 20 MG One tablet by RIVAROXABAN 74038040416 Sherman S TABS mouth daily / MD Fred ASPIRIN 325 MG One tablet by ASPIRIN 50192222436 Sherman S TABS mouth daily / MD Fred OMEPRAZOLE 40 MG One tablet by OMEPRAZOLE 85756618292 Lilliana A Ela CPDR mouth daily /21 RN CALCIUM 500 MG One tablet by CALCIUM 97523363607 Lilliana A Ela TABS mouth daily /21 RN DILTIAZEM HCL ER One tablet by DILTIAZEM HCL 14572291620 Lilliana A Ela 180 MG [id number] mouth twice /21 RN daily LASIX 40 MG TABS One tablet by FUROSEMIDE 81781657200 Lilliana A Ela mouth twice /21 RN daily METOPROLOL One tablet by METOPROLOL 42841478722 Lilliana A Ela TARTRATE 100 MG mouth twice /25 TARTRATE RN TABS daily POTASSIUM One tablet by POTASSIUM 57790739559 Lilliana A Ela CHLORIDE ER 20 mouth daily /21 CHLORIDE RN MEQ CR-TABS NASONEX 50 Take as MOMETASONE 59299163615 Flores M MCG/ACT SUSP directed FUROATE NINI Monreo NASONEX 50 Take as 2017 MOMETASONE 11495443370 Lilliana A Ela MCG/ACT SUSP directed /10/30 FUROATE RN OMEGA 3 CPDR One tablet by OMEGA-3 FATTY 27595955623 Flores M mouth daily / ACIDS CPDR Mabel, RN OMEGA 3 CPDR One tablet by OMEGA-3 FATTY 86587326702 Lilliana A Ela mouth daily /10/30 ACIDS CPDR RN ASPIRIN EC 81 MG One tablet by ASPIRIN 84387868246 Flores M TBEC mouth daily / [facility], RN ASPIRIN EC 81 MG One tablet by ASPIRIN 73349278295 Lilliana A Ela TBEC mouth daily /10/30 RN MULTIVITAMINS One tablet by MULTIPLE VITAMIN Flores M TABS mouth daily / [facility], RN VITAMIN D 1000 One tablet by CHOLECALCIFEROL 01857542185 Flores M UNIT TABS mouth daily / [facility], RN ANTIVERT 25 MG As needed MECLIZINE HCL Flores M TABS / [facility], RN MELATONIN 3 MG One tablet by MELATONIN 83945535376 Flores M TABS mouth at [facility], RN bedtime. As needed VITAMIN B-12 500 One tablet by CYANOCOBALAMIN 92824716418 Flores M MCG TABS mouth daily / [facility], RN XARELTO 20 MG One tablet by RIVAROXABAN 52670222114 Lilliana A Ela TABS mouth daily /02/06 RN METOPROLOL Two tablets by METOPROLOL 05885306080 Susan Castellon SUCCINATE ER 50 mouth daily /25 SUCCINATE Mac, MG [id number] PA-C AMIODARONE HCL Two tablets by AMIODARONE HCL 16847502482 Lilliana A Ela 200 MG TABS mouth twice / RN daily X 1 week then One tablet by mouth daily ELIQUIS 5 MG One tablet by APIXABAN 66453601396 Flores M TABS mouth twice /10/02 [facility], RN daily LASIX 40 MG TABS as needed for FUROSEMIDE 18948401484 Sherman S LE edema / MD Fred AMIODARONE HCL Two tablets by AMIODARONE HCL 52622124884 Lilliana A Ela 200 MG TABS mouth RN times daily X 3 days then One tablet by mouth twice daily AMIODARONE HCL Two tablets by AMIODARONE HCL 05100977064 Lilliana Tee Ela 200 MG TABS mouth three 06/18 RN times daily X 3 days then One tablet by mouth twice daily ASPIRIN 325 MG One tablet by ASPIRIN 50584357504 Lilliana Tee Eal TABS mouth daily / RN ASPIRIN 325 MG One tablet by ASPIRIN 38633859162 Flores M TABS mouth daily /20 05/14 [facility], RN LASIX 40 MG TABS as needed for FUROSEMIDE 05967874133 Lilliana Tee Ela LE edema / RN LASIX 40 MG TABS as needed for FUROSEMIDE 85101670370 Flores M LE edema /05[facility] O[facility] 40 MG One tablet by OMEPRAZOLE 32065474682 Flores M CPDR mouth twice / [facility], RN daily OMEPRAZOLE 40 MG One tablet by OMEPRAZOLE 34872224384 Flores M CPDR mouth twice /03 10[facility]02 [facility] METOPROLOL One tablet by METOPROLOL 81671423424 Erika K SUCCINATE ER 100 mouth daily / SUCCINATE Viet MG [id number] epic ambulatory analysts excluded from report: MULTIVITAMINS One tablet MULTIPLE VITAMIN Erika K TABS by mouth Viet TERRAZAS daily MULTIVITAMINS One tablet 201 MULTIPLE VITAMIN Maxim S TABS by mouth /0 MD Fred daily 06/13 5 VITAMIN D 1000 One tablet CHOLECALCIFEROL 61388557112 Erika K UNIT TABS by mouth Viet TERRAZAS daily VITAMIN D 1000 One tablet 201 CHOLECALCIFEROL 94991788554 Sherman S UNIT TABS by mouth 4/0 MD Fred daily 2/2 5 LASIX 40 MG TABS One tablet FUROSEMIDE 55744503099 Erika K by mouth Viet TERRAZAS daily LASIX 40 MG TABS One tablet 201 FUROSEMIDE 00194816827 Sherman S by mouth 4/0 MD Fred daily 2/2 5 PRADAXA 150 MG One tablet DABIGATRAN 50850600406 Erika Moody CAPS by mouth ETEXILATE MESYLATE Viet TERRAZAS twice daily PRADAXA 150 MG One tablet 201 DABIGATRAN 79256309332 Susan Castellon CAPS by mouth 4/0 ETEXILATE MESYLATE Mac, twice daily 12/11 PA-C 8 METOPROLOL one half METOPROLOL 90076825316 Susan Castellon SUCCINATE ER 100 daily SUCCINATE Mac, MG [id number] PA-C TRAZODONE HCL 50 nightly as TRAZODONE HCL 87846061922 Susan M MG TABS needed Mac, PA-C TRAZODONE HCL 50 nightly as 201 TRAZODONE HCL 70608821805 Maxim S MG TABS needed 5/0 MD Fred 2/2 0 ASPIRIN 81 MG One tablet ASPIRIN 03482740594 Susan Castellon TABS by mouth Mac, daily PA-C ASPIRIN 81 MG One tablet 201 ASPIRIN 11400447227 Sherman S TABS by mouth 5/0 MD Fred daily 2/2 0 METOPROLOL One half METOPROLOL 15438955689 Sherman S SUCCINATE ER 100 tablet by SUCCINATE MD Fred MG [id number] mouth daily OMEPRAZOLE 40 MG One tablet OMEPRAZOLE 22904039552 Sherman S CPDR by mouth MD Fred daily as needed OMEPRAZOLE 40 MG One tablet 201 OMEPRAZOLE 62147090995 Susan Castellon CPDR by mouth 5/0 Mac, daily as 01/10 PA-C needed 1 FLONASE 50 Take as FLUTICASONE 72779329593 Susan Castellon MCG/ACT SUSP directed PROPIONATE Mac, PA-C FLONASE 50 Take as 201 FLUTICASONE 29688401339 Susan Castellon MCG/ACT SUSP directed 5/0 PROPIONATE [...] information General cardiovascular disease 10Y risk [#] [place] CARD RSK GRP C cardiac risk group [...] INTERVAL new path ms QT interval, electrocardiogram NH INTERVAL 0 ms NH interval, electrocardiogram EKGHRTRATE 137 BPM heart rate on electrocardiogram Replaced Document: FFP [id number] TRANSFUSED PRODUCT: Fresh [...] glucose Office Visit: S/P Eliezer Ragsdale 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 Dietary management education, guidance, and counseling (procedure) SMOK STATUS Former smoker Tobacco use [facility] MEDS REVIEW Done Documentation of current medications (procedure) FALLRSKASSES No Fall risk assessment Lab Report: Prothrombin Time Fingerstick PROTIME 41.4 SEC 11.9-14.4 H Protime Coumadin Management: Warfarin Calc INR PT [facility] Hospital lab Source of INR (PT) measurement PT PATIENT 41.4 s prothrombin time (patient) INR 3.7 international normalized ratio (INR) INR RANGE 2 to 3 international normalized ratio (INR) range Clinical Lists Update: Preload CARDEFECHO 47 % Left ventricular Ejection fraction Plan of Care Type Date Detail Appointment 03:45 PM Maxim Ibarra MD, [address], [address], [place], [address], Referral Cardiac Referral Ajay Hammond MD, [address], [address], [place], [address] Referral EPS Referral Nathan Alexandreoud, [facility], [address] [place] [address], [id number] Referral EPS Referral Nathan Mane, [facility], [address] [place] [address], [phone] Referral excluded from report: Pending order Follow Up as needed Pending order EKG (In office) Pending order *PT/INR - Standing Order Pending order MMM Pending order Follow Up Appt 3 months Pending order Pulmonary Function Test - complete Pending order ORE GRADER Pending order Follow Up Appt 6 months Pending order EKG (In office) Pending order MMM Pending order Follow Up Appt 1 month Pending order Transesophageal echocardiogram (ARIS) Pending order Cardioversion Pending order MMM Pending order Follow Up Appt 6 months Pending order ORE GRADER Pending order Follow Up Appt 6 months Pending order EKG (In office) Pending order MMM Pending order Follow Up Appt 6 months Pending order ORE GRADER Pending order Follow Up Appt 3 months Procedures Code Procedure Name Date Entry Date CPT-78911 EKG (In office) Cardiac Referral Cardiac Referral EPS EPS Referral Order excluded from report: F/U MMM MMM FUA 3 months Follow Up Appt 3 months PFT Pulmonary Function Test - complete F/U ORE GRADER ORE GRADER FUA 6 months Follow Up Appt 6 months CPT-33759 EKG (In office) F/U MMM MMM FUA 1 month Follow Up Appt 1 month CV Cardioversion [facility]IS Transesophageal echocardiogram ([facility]) F/U MMM MMM FUA 6 months Follow Up Appt 6 months [id number] SNOMED-CT: [id number] Current Medications Documented F/U ORE GRADER ORE GRADER FUA 6 months Follow Up Appt 6 months F/U MMM MMM FUA 6 months Follow Up Appt 6 months CPT-50885 EKG (In office) F/U ORE GRADER ORE GRADER FUA 3 months Follow Up Appt [...]
--- OUTSIDE RECORDS SUMMARY | 2018-05-19 13:52 | XMS RPT_ITS | Clinical Summary ---
:1945 Author Organization Formerly [facility] Address [address] [place] [address] Phone Care Team Providers Name Role Phone Lilliana Mahmood RN Unavailable Unavailable Conditions or Problems Problem Problem Onset Status Entry Provider Comment Standard Annotate Name Code Date Date Description Cardiomyopa 83653747 Active Lilliana Mahmood Cardiomyopathy thy (SNOMED 10/30 10/[address]) Acute I50.21 Active Lilliana Mahmood Acute systolic systolic (ICD-10-CM 10/30 10/30 RN (congestive) (congestive ) heart failure ) heart failure Acute 62592876 Active Alessio Castellon Acute cholecystit (SNOMED 10/28 10/29 [place] [address] CT) Overweight 516701324 Active Natalie Tee Overweight (SNOMED 10/28 10/[address]) RN Dyspnea 452027761 Active Flores Castellon Dyspnea (SNOMED 10/02 10/[address]) 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 Erika Moody 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 Chronic 962647800 Active Erika Moody Chronic diastolic (SNOMED 05/23 05/[address] [place] [address] heart heart [address]) RN failure failure Hx of 597004359 Active Erika Moody Maze procedure pulmonary (SNOMED 09/19 09/19 Viet for atrial vein [address]) RN fibrillation isolation for atrial fib Paroxysmal 157748628 Active Erika Moody Paroxysmal atrial (SNOMED 05/23 05/[address]) RN fibrillation n 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 Flores Castellon 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 Body Mass 058931964 Resolved Flores Castellon Finding of body Index (SNOMED 01/06 01/06 NINI [place] mass index 27.0-27.9, CT) adult Family [id number] Resolved Flores Castellon Family history History of (SNOMED 01/20 NINI [place] of stroke CVA or CT) Stroke High risk 893135786 Active Lilliana Mahmood Long-term drug meds long (SNOMED 06/15 06/[address]) Family [id number] Removed Susan Castellon Family history History of (SNOMED 01/20 Bubba, of stroke CVA or CT) PA-C Stroke Body mass Z68.28 Active Susan Castellon Body mass index index (BMI) (ICD-10-CM 01/20 01/20 Bubba, (BMI) 28.0-28.9, ) PA-C 28.0-28.9, adult adult Body Mass 798153914 Removed Susan Castellon Finding of body Index (SNOMED 01/06 01/06 [place]ub[place], mass index 27.0-27.9, CT) PA-C adult CONGESTIVE 19577429 Inactive Flores Castellon Congestive HEART (SNOMED 05/23 05/23 NINI [place] heart failure FAILURE CT) ATRIAL 29209074 Inactive Flores Castellon Atrial FIBRILLATIO (SNOMED 05/23 05/23 NINI [place] fibrillation N CT) Medications Medication Instructions Start Stop Generic Name NDC Provider Date Date TOPROL XL 50 MG One tablet by METOPROLOL [id number] Maxim S [id number] mouth daily /25 SUCCINATE MD Fred COUMADIN 2 MG take 1 mg on WARFARIN SODIUM [id number] [place] S TABS Tues and Weds, /24 MD Fred 2 mg daliy rest of week or as directed COUMADIN 4 MG One tablet by WARFARIN SODIUM 14807644551 [place] Rees TABS mouth every /24 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 METOPROLOL One tablet by METOPROLOL 62393591205 [place] S SUCCINATE ER 100 mouth daily /25 SUCCINATE MD Fred MG [id number]-[id number] ELIQUIS 5 MG One tablet by APIXABAN 67792323718 Maxim S TABS mouth twice / MD Fred daily AMIODARONE HCL Two tablets by AMIODARONE HCL 99647299683 Jose Sood 200 MG TABS mouth three MD Lawrence times daily X 3 days then One tablet by mouth twice daily ELIQUIS 5 MG One tablet by APIXABAN [id number] Susan Cande TABS mouth twice / Mac, daily PA-C METOPROLOL One tablet by METOPROLOL 49507157555 Susan Castellon SUCCINATE ER 100 mouth daily /25 SUCCINATE Mac, MG [id number] PA-C ELIQUIS 5 MG One tablet by APIXABAN 81766537022 [place] S TABS mouth twice / MD Fred daily XARELTO 20 MG One tablet by RIVAROXABAN 77612313994 Maxim S TABS mouth daily / MD Fred ASPIRIN 325 MG One tablet by ASPIRIN 68418945818 [place] S TABS mouth daily / MD Fred NASONEX 50 Take as MOMETASONE 73587388131 Flores M MCG/ACT SUSP directed FUROATE NINI [place] NASONEX 50 Take as MOMETASONE 39661141797 Lilliana Nay Ela MCG/ACT SUSP directed /10/30 FUROATE NINI OMEGA 3 CPDR One tablet by OMEGA-3 FATTY 64864593899 Flores M mouth daily / ACIDS CPDR NINI [place] OMEGA 3 CPDR One tablet by OMEGA-3 FATTY 20907665881 Lilliana Nay Ela mouth daily /10/30 ACIDS CPDR NINI ASPIRIN EC 81 MG One tablet by ASPIRIN 03591714956 Flores M TBEC mouth daily / NINI [place] ASPIRIN EC 81 MG One tablet by ASPIRIN 87838453457 Lilliana A Ela TBEC mouth daily /10/30 RN DILTIAZEM HCL ER One tablet by DILTIAZEM HCL 64708921946 Lilliana A Ela 180 MG [id number] mouth twice / RN daily DILTIAZEM HCL ER One tablet by DILTIAZEM HCL 14850187011 Maxim S 180 MG YI75A-HCQ mouth twice /10/31 MD Fred daily METOPROLOL One tablet by METOPROLOL 03597877382 Lilliana A Ela TARTRATE 100 MG mouth twice / TARTRATE RN TABS daily LASIX 40 MG TABS One tablet by FUROSEMIDE 21550978543 Lilliana A Ela mouth twice / RN daily LASIX 40 MG TABS One tablet by FUROSEMIDE [id number] [place] S mouth twice /10/31 MD Fred daily POTASSIUM One tablet by POTASSIUM 07429532599 Lilliana A Ela CHLORIDE ER 20 mouth daily / CHLORIDE RN MEQ CR-TABS POTASSIUM One tablet by POTASSIUM 21288930410 Maxim S CHLORIDE ER 20 mouth daily /10/31 CHLORIDE MD Fred MEQ CR-TABS MULTIVITAMINS One tablet by MULTIPLE VITAMIN Flores M TABS mouth daily / [facility], RN VITAMIN D 1000 One tablet by CHOLECALCIFEROL 30165054359 Flores M UNIT TABS mouth daily / [facility], RN ANTIVERT 25 MG As needed MECLIZINE HCL Flores M TABS / [facility], RN MELATONIN 3 MG One tablet by MELATONIN 92500883862 Flores M TABS mouth at / [facility], RN bedtime. As needed VITAMIN B-12 500 One tablet by CYANOCOBALAMIN 40126179153 Flores M MCG TABS mouth daily / [place], RN OMEPRAZOLE 40 MG One tablet by OMEPRAZOLE 28622466272 Lilliana A Ela CPDR mouth daily / RN CALCIUM 500 MG One tablet by CALCIUM 99457039239 Lilliana A Ela TABS mouth daily / RN XARELTO 20 MG One tablet by RIVAROXABAN 57202554452 Lilliana A Ela TABS mouth daily /11 02/06 RN METOPROLOL Two tablets by METOPROLOL 12568463099 Susan Castellon SUCCINATE ER 50 mouth daily /25 SUCCINATE Mac, MG AI70Z-IKP MARIANNE AMIODARONE HCL Two tablets by AMIODARONE HCL 73914257990 Lilliana A Ela 200 MG TABS mouth twice /04 RN daily X 1 week then One tablet by mouth daily ELIQUIS 5 MG One tablet by APIXABAN 98316210043 Flores M TABS mouth twice /10/02 [place], RN daily LASIX 40 MG TABS as needed for FUROSEMIDE 28846905489 [place] S LE edema / MD Fred AMIODARONE HCL Two tablets by AMIODARONE HCL 08181851351 Lilliana A Ela 200 MG TABS mouth three /04 RN times daily X 3 days then One tablet by mouth twice daily AMIODARONE HCL Two tablets by AMIODARONE HCL 35793412124 Lilliana A Ela 200 MG TABS mouth three /04 06/18 RN times daily X 3 days then One tablet by mouth twice daily ASPIRIN 325 MG One tablet by ASPIRIN 37792665203 Lilliana A Ela TABS mouth daily /20 RN ASPIRIN 325 MG One tablet by ASPIRIN 34522225183 Flores M TABS mouth daily /20 05/14 [place], RN LASIX 40 MG TABS as needed for FUROSEMIDE 14498970119 Lilliana A Ela LE edema /20 RN LASIX 40 MG TABS as needed for FUROSEMIDE 94922164032 Flores M LE edema /20 05/14 [place], RN OMEPRAZOLE 40 MG One tablet by OMEPRAZOLE 72301382010 Flores M CPDR mouth twice / [place], RN daily OMEPRAZOLE 40 MG One tablet by OMEPRAZOLE 15786811051 Flores M CPDR mouth twice /10/02 [place], RN daily METOPROLOL One tablet by METOPROLOL 46358800868 Erika K SUCCINATE ER 100 mouth daily /20 SUCCINATE Viet MG 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: MULTIVITAMINS One tablet MULTIPLE VITAMIN Erika K TABS by mouth Viet TERRAZAS daily MULTIVITAMINS One tablet 201 MULTIPLE VITAMIN [place] S TABS by mouth 4/0 MD Fred daily 2/2 5 VITAMIN D 1000 One tablet CHOLECALCIFEROL 17540851991 Erika K UNIT TABS by mouth Viet TERRAZAS daily VITAMIN D 1000 One tablet 201 CHOLECALCIFEROL 22956418005 Maxim S UNIT TABS by mouth 4/0 MD Fred daily 06/13 5 LASIX 40 MG TABS One tablet FUROSEMIDE 64468083239 Erika K by mouth [place] TERRAZAS daily LASIX 40 MG TABS One tablet 201 FUROSEMIDE 79689563158 [place] S by mouth 4/0 MD Fred daily 06/13 5 PRADAXA 150 MG One tablet DABIGATRAN 01016655133 Erika K CAPS by mouth ETEXILATE MESYLATE Viet TERRAZAS twice daily PRADAXA 150 MG One tablet 201 DABIGATRAN 84691847621 Susan Castellon CAPS by mouth 4/0 ETEXILATE MESYLATE Bubba, twice daily 12/11 PA-C 8 METOPROLOL one half METOPROLOL 95303609336 Susan Castellon SUCCINATE ER 100 daily SUCCINATE Mac, MG [id number]-NRW PA-C TRAZODONE HCL 50 nightly as TRAZODONE HCL 47622100116 Susan M MG TABS needed Mac, PA-C TRAZODONE HCL 50 nightly as 201 TRAZODONE HCL 72175784913 [place] S MG TABS needed 5/0 MD Fred 2/2 0 ASPIRIN 81 MG One tablet ASPIRIN 93073477738 Susan M TABS by mouth Bubba, daily PA-C ASPIRIN 81 MG One tablet 201 ASPIRIN 87611965953 [place] S TABS by mouth 5/0 MD Fred daily 2/2 0 METOPROLOL One half METOPROLOL 85723445645 Maxim S SUCCINATE ER 100 tablet by SUCCINATE MD Fred MG [id number] mouth daily OMEPRAZOLE 40 MG One tablet OMEPRAZOLE 40748950222 [place] S CPDR by mouth MD Fred daily as needed OMEPRAZOLE 40 MG One tablet 201 OMEPRAZOLE 87795307393 Susan Cande CPDR by mouth 5/0 Mac, daily as 01/10 PA-C needed 1 FLONASE 50 Take as FLUTICASONE 91078223834 Susan Castellon MCG/ACT SUSP directed PROPIONATE Bubba PA-C FLONASE 50 Take as 201 FLUTICASONE 39917434397 Susan Cande MCG/ACT SUSP directed 5/0 PROPIONATE Mac, 01/10 PA-C 1 Medications Administered No information available. 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 Dietary management education, guidance, and counseling (procedure) SMOK STATUS Former smoker Tobacco use [facility] Lab Report: Prothrombin Time Fingerstick [...] INTERVAL new path ms QT interval, electrocardiogram TX INTERVAL 134 ms TX interval, electrocardiogram EKGHRTRATE 52 BPM heart rate on electrocardiogram Coumadin Management: Warfarin Calc INR PT [facility] Hospital lab Source of INR (PT) measurement PT PATIENT 0 s prothrombin time (patient) INR 1.6 international normalized ratio (INR) INR RANGE 2 to 3 international normalized ratio (INR) range Plan of Care Type Date Detail Appointment 03:30 PM Maxim Ibarra MD, [address] [facility], [address], [place], [address], Referral Cardiac Referral Ajay Hammond MD, [address], [address], [place], [address] Referral EPS Referral Nathan Mane, [facility], [address] [place] [address], [phone] Referral EPS Referral Nathan Mane [facility], [address] [place] [address], [phone] Referral excluded from report: Pending order MMM Pending order Follow Up Appt 4 months Pending order EKG (In office) Pending order Follow Up as needed Pending order EKG (In office) Pending order *PT/INR - Standing Order Pending order MMM Pending order Follow Up Appt 3 months Pending order Pulmonary Function Test - complete Pending order MINE WIRER Pending order Follow Up Appt 6 months Pending order EKG (In office) Pending order MMM Pending order Follow Up Appt 1 month Pending order Transesophageal echocardiogram ([facility]IS) Pending order Cardioversion Pending order MMM Pending order Follow Up Appt 6 months Pending order MINE WIRER Pending order Follow Up Appt 6 months Pending order EKG (In office) Pending order MMM Pending order Follow Up Appt 6 months Pending order MINE WIRER Pending order Follow Up Appt 3 months Procedures Code Procedure Name Date Entry Date F/U MMM MMM FUA 4 months Follow Up Appt 4 months CPT-71461 EKG (In office) Cardiac Referral Cardiac Referral EPS EPS Referral Order excluded from report: F/U MMM MMM FUA 3 months Follow Up Appt 3 months PFT Pulmonary Function Test - complete F/U MINE WIRER MINE WIRER FUA 6 months Follow Up Appt 6 months CPT-85818 EKG (In office) F/U MMM MMM FUA 1 month Follow Up Appt 1 month CV Cardioversion [facility]IS Transesophageal echocardiogram ([facility]) F/U MMM MMM FUA 6 months Follow Up Appt 6 months [id number] SNOMED-CT: [id number] Current Medications Documented F/U MINE WIRER MINE WIRER FUA 6 months Follow Up Appt 6 months F/U MMM MMM FUA 6 months Follow Up Appt 6 months CPT-07938 EKG (In office) F/U MINE WIRER MINE WIRER FUA 3 months Follow Up Appt 3 [...]
--- OUTSIDE RECORDS SUMMARY | 2018-05-19 13:52 | XMS RPT_ITS | Clinical Summary ---
:1945 Author Organization [facility] Address [address] [place] [phone] Phone Care Team Providers Name Role Phone Lilliana Mahmood RN Unavailable Unavailable Conditions or Problems Problem Problem Onset Status Entry Provider Comment Standard Annotate Name Code Date Date Description Cardiomyopa 50753909 Active Lilliana Mahmood Cardiomyopathy thy (SNOMED 10/30 10/[address]) Acute I50.21 Active Lilliana Mahmood Acute systolic systolic (ICD-10-CM 10/30 10/30 RN (congestive) (congestive ) heart failure ) heart failure Acute 73989996 Active Alessio Castellon Acute cholecystit (SNOMED 10/28 10/29 [place] [address] CT) Overweight 156255484 Active Natalie Tee Overweight (SNOMED 10/28 10/[address]) RN Dyspnea 834160249 Active Flores Castellon Dyspnea (SNOMED 10/02 10/[address]) 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 Erika Moody 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 Chronic 531466250 Active Erika Moody Chronic diastolic (SNOMED 05/23 05/[address] [place] [address]) RN failure failure Hx of 957224862 Active Erika Moody Maze procedure pulmonary (SNOMED 09/19 09/19 Viet for atrial vein [address]) RN fibrillation isolation for atrial fib Paroxysmal 223908467 Active Erika Moody Paroxysmal atrial (SNOMED 05/23 05/[address]) RN fibrillation n 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 Flores Castellon 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 Body Mass 821910704 Resolved Flores Castellon Finding of body Index (SNOMED 01/06 01/06 NINI [place] mass index 27.0-27.9, CT) adult Family [id number] Resolved Flores Castellon Family history History of (SNOMED 01/20 NINI [place] of stroke CVA or CT) Stroke High risk 334976181 Active Lilliana Mahmood Long-term drug meds long (SNOMED 06/15 06/[address]) Family [id number] Removed Susan Castellon Family history History of (SNOMED 01/20 Bubba, of stroke CVA or CT) PA-C Stroke Body mass Z68.28 Active Susan Castellon Body mass index index (BMI) (ICD-10-CM 01/20 01/20 Bubba, (BMI) 28.0-28.9, ) PA-C 28.0-28.9, adult adult Body Mass 254152100 Removed Susan Castellon Finding of body Index (SNOMED 01/06 01/06 Bubba, mass index 27.0-27.9, CT) PA-C adult CONGESTIVE 42435452 Inactive Florse Castellon Congestive HEART (SNOMED 05/23 05/23 NINI [place] heart failure FAILURE CT) ATRIAL 65617341 Inactive Flores Castellon Atrial FIBRILLATIO (SNOMED 05/23 05/23 NINI [place] fibrillation N CT) Medications Medication Instructions Start Stop Generic Name NDC Provider Date Date TOPROL XL 50 MG One tablet by METOPROLOL [id number] Maxim S [id number] mouth daily /25 SUCCINATE MD Fred COUMADIN 2 MG take 1 mg on WARFARIN SODIUM 85322667770 Houston S TABS Tues and Weds, /24 MD Fred 2 mg daliy rest of week or as directed COUMADIN 4 MG One tablet by WARFARIN SODIUM 13990714626 Stevenson Rees TABS mouth every /24 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 METOPROLOL One tablet by METOPROLOL 79186302868 Maxim S SUCCINATE ER 100 mouth daily /25 SUCCINATE MD Fred MG [id number] ELIQUIS 5 MG One tablet by APIXABAN 24698102878 Maxim S TABS mouth twice / MD Fred daily AMIODARONE HCL Two tablets by AMIODARONE HCL 56429353801 Jose Sood 200 MG TABS mouth three MD Lawrence times daily X 3 days then One tablet by mouth twice daily ELIQUIS 5 MG One tablet by APIXABAN [id number] Susan Cande TABS mouth twice / Mac, daily PA-C METOPROLOL One tablet by METOPROLOL [id number] Susan Castellon SUCCINATE ER 100 mouth daily /25 SUCCINATE Mac, MG TR16I-YFT PA-C ELIQUIS 5 MG One tablet by APIXABAN 87126274159 Maxim S TABS mouth twice / MD Fred daily XARELTO 20 MG One tablet by RIVAROXABAN 13689445611 Maxim S TABS mouth daily / MD Fred ASPIRIN 325 MG One tablet by ASPIRIN 80340025237 Houston S TABS mouth daily / MD Fred COUMADIN 1 MG One tablet by WARFARIN SODIUM 02208063705 Flores M TABS mouth daily / NINI Monroe NASONEX 50 Take as MOMETASONE 72386123614 Flores M MCG/ACT SUSP directed / FUROATE NINI Monroe NASONEX 50 Take as MOMETASONE 93891594731 Lilliana A Ela MCG/ACT SUSP directed /10/30 FUROATE RN OMEGA 3 CPDR One tablet by OMEGA-3 FATTY 91725731789 Flores M mouth daily / ACIDS CPDR NINI Monroe OMEGA 3 CPDR One tablet by OMEGA-3 FATTY 48515875624 Lilliana A Ela mouth daily /10/30 ACIDS CPDR NINI ASPIRIN EC 81 MG One tablet by ASPIRIN 04053554345 Flores M TBEC mouth daily / [place]sh[place], RN ASPIRIN EC 81 MG One tablet by ASPIRIN 45012715738 Lilliana A Ela TBEC mouth daily /10/30 RN DILTIAZEM HCL ER One tablet by DILTIAZEM HCL 18779304424 Lilliana A Ela 180 MG [id number]-BHF mouth twice / RN daily DILTIAZEM HCL ER One tablet by DILTIAZEM HCL 40373060064 Maxim S 180 MG [id number] mouth twice /10/31 MD Fred daily METOPROLOL One tablet by METOPROLOL 15979804956 Lilliana A Ela TARTRATE 100 MG mouth twice / TARTRATE RN TABS daily LASIX 40 MG TABS One tablet by FUROSEMIDE 76778971831 Lilliana A Ela mouth twice / RN daily LASIX 40 MG TABS One tablet by FUROSEMIDE 71894163796 Maxim S mouth twice /10/31 MD Fred daily POTASSIUM One tablet by POTASSIUM 34382214179 Lilliana A Ela CHLORIDE ER 20 mouth daily / CHLORIDE RN MEQ CR-TABS POTASSIUM One tablet by POTASSIUM 80655180960 Houston S CHLORIDE ER 20 mouth daily /10/31 CHLORIDE MD Fred MEQ CR-TABS MULTIVITAMINS One tablet by MULTIPLE VITAMIN Flores M TABS mouth daily / Mabel RN VITAMIN D 1000 One tablet by CHOLECALCIFEROL 02270581895 Flores M UNIT TABS mouth daily / Mabel RN ANTIVERT 25 MG As needed MECLIZINE HCL Flores M TABS / Mabel, RN MELATONIN 3 MG One tablet by MELATONIN [id number] Flores M TABS mouth at / Mabel RN bedtime. As needed VITAMIN B-12 500 One tablet by CYANOCOBALAMIN 80911379874 Flores M MCG TABS mouth daily / Mabel, RN OMEPRAZOLE 40 MG One tablet by OMEPRAZOLE 27069890594 Lilliana A Ela CPDR mouth daily / RN CALCIUM 500 MG One tablet by CALCIUM 85377959950 Lilliana A Ela TABS mouth daily / RN XARELTO 20 MG One tablet by RIVAROXABAN 20926554363 Lilliana A Ela TABS mouth daily /02/06 RN METOPROLOL Two tablets by METOPROLOL 91320712707 Susan Castellon SUCCINATE ER 50 mouth daily /25 SUCCINATE Mac, MG VR20T-[id number] PA-C AMIODARONE HCL Two tablets by AMIODARONE HCL 95015631091 Lilliana A Ela 200 MG TABS mouth twice /04 RN daily X 1 week then One tablet by mouth daily ELIQUIS 5 MG One tablet by APIXABAN 43627444721 Flores M TABS mouth twice /10/[address] [facility], RN daily LASIX 40 MG TABS as needed for FUROSEMIDE 31234193055 Maxim S LE edema / MD Fred AMIODARONE HCL Two tablets by AMIODARONE HCL 53282495973 Lilliana A Ela 200 MG TABS mouth three /04 RN times daily X 3 days then One tablet by mouth twice daily AMIODARONE HCL Two tablets by AMIODARONE HCL 53243310521 Lilliana A Ela 200 MG TABS mouth three /04 06/18 RN times daily X 3 days then One tablet by mouth twice daily ASPIRIN 325 MG One tablet by ASPIRIN 41770921531 Lilliana A Ela TABS mouth daily / RN ASPIRIN 325 MG One tablet by ASPIRIN 72371518051 Flores M TABS mouth daily /20 05/14 [place], RN LASIX 40 MG TABS as needed for FUROSEMIDE 06854817228 Lilliana A Ela LE edema / RN LASIX 40 MG TABS as needed for FUROSEMIDE 08957948974 Flores M LE edema /20 05/14 [place], RN OMEPRAZOLE 40 MG One tablet by OMEPRAZOLE 33126517961 Flores M CPDR mouth twice [place], RN daily OMEPRAZOLE 40 MG One tablet by OMEPRAZOLE 69766873679 Flores M CPDR mouth twice /10/02 NINI Monroe daily METOPROLOL One tablet by METOPROLOL 68407279245 Erika K SUCCINATE ER 100 mouth daily SUCCINATE Viet 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: MULTIVITAMINS One tablet MULTIPLE VITAMIN Erika K TABS by mouth Viet TERRAZAS daily MULTIVITAMINS One tablet 201 MULTIPLE VITAMIN [place] S TABS by mouth 4/0 MD Fred daily 06/13 VITAMIN D 1000 One tablet CHOLECALCIFEROL 63901369065 Erika K UNIT TABS by mouth Viet TERRAZAS daily VITAMIN D 1000 One tablet 201 CHOLECALCIFEROL 01015165607 Maxim S UNIT TABS by mouth 4/0 MD Fred daily 06/13 LASIX 40 MG TABS One tablet FUROSEMIDE 86879282235 Erika K by mouth Viet TERRAZAS daily LASIX 40 MG TABS One tablet 201 FUROSEMIDE 02561997981 Maxim S by mouth 4/0 MD Fred daily 06/13 5 PRADAXA 150 MG One tablet DABIGATRAN 53130386078 Erika K CAPS by mouth ETEXILATE MESYLATE Viet TERRAZAS twice daily PRADAXA 150 MG One tablet 201 DABIGATRAN 88083434460 Susan Castellon CAPS by mouth 4/0 ETEXILATE MESYLATE Bubba, twice daily 12/11 PA-C 8 METOPROLOL one half METOPROLOL 24242805800 Susan Castellon SUCCINATE ER 100 daily SUCCINATE Mac, MG UR04Z-HHE PA-C TRAZODONE HCL 50 nightly as TRAZODONE HCL 47842333202 Susan M MG TABS needed Bubba PA-C TRAZODONE HCL 50 nightly as 201 TRAZODONE HCL 46765933287 Maxim S MG TABS needed 5/0 MD Fred 2/2 0 ASPIRIN 81 MG One tablet ASPIRIN 73272845916 Susan M TABS by mouth Bubba daily PA-C ASPIRIN 81 MG One tablet 201 ASPIRIN 31392034520 Maxim S TABS by mouth 5/0 MD Fred daily 2/2 0 METOPROLOL One half METOPROLOL 50799531491 Maxim S SUCCINATE ER 100 tablet by SUCCINATE MD Fred MG [id number] mouth daily OMEPRAZOLE 40 MG One tablet OMEPRAZOLE 25230536869 Maxim S CPDR by mouth MD Fred daily as needed OMEPRAZOLE 40 MG One tablet 201 OMEPRAZOLE 04350384633 Susan Castellon CPDR by mouth 5/0 Mac, daily as 01/10 PA-C needed 1 FLONASE 50 Take as FLUTICASONE 29732870158 Susan Castellon MCG/ACT SUSP directed PROPIONATE Bubba, PA-C FLONASE 50 Take as 201 FLUTICASONE 75269571553 Susan Castellon MCG/ACT SUSP directed 5/0 PROPIONATE [...] Critical No Longer Susan Castellon Active Bubba, PAJovannaC HYDROCODONE vomiting Moderate Active Erika Llanos RN MORPHINE vomiting Moderate Active Erika Llanos RN ADHESIVE TAPE rash Moderate Active Erika Llanos RN NAPROXEN Moderate Active Erika Llanos RN Results Date Name Value Unit Range Flag Description Office Visit CHD 10YR RSK Not enough information General cardiovascular disease 10Y risk [#] [place]D'Agost[place] CARD RSK GRP C cardiac risk group [...] glucose Office Visit: 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 Dietary management education, guidance, and counseling (procedure) SMOK STATUS Former smoker Tobacco use [facility] Lab Report: Prothrombin Time Fingerstick PROTIME [...] Appointment 03:30 PM Maxim Ibarra MD, [address] [facility], [address], [place], [address], Referral Cardiac Referral Ajay Hammond MD, [address] [facility], [facility] [address], [place], [address] Referral EPS Referral Nathan Mane [facility], [address] [place] [address], [phone] Referral EPS Referral Nathan Mane [facility], [address] [place] [address], [phone] Referral excluded from report: Pending order MMM Pending order Follow Up Appt 4 months Pending order EKG (In office) Pending order Follow Up as needed Pending order EKG (In office) Pending order *PT/INR - Standing Order Pending order MMM Pending order Follow Up Appt 3 months Pending order Pulmonary Function Test - complete Pending order AIRPLANE PILOT Pending order Follow Up Appt 6 months Pending order EKG (In office) Pending order MMM Pending order Follow Up Appt 1 month Pending order Transesophageal echocardiogram (ARIS) Pending order Cardioversion Pending order MMM Pending order Follow Up Appt 6 months Pending order AIRPLANE PILOT Pending order Follow Up Appt 6 months Pending order EKG (In office) Pending order MMM Pending order Follow Up Appt 6 months Pending order AIRPLANE PILOT Pending order Follow Up Appt 3 months Procedures Code Procedure Name Date Entry Date F/U MMM MMM FUA 4 months Follow Up Appt 4 months CPT-04628 EKG (In office) Cardiac Referral Cardiac Referral EPS EPS Referral Order excluded from report: F/U MMM MMM FUA 3 months Follow Up Appt 3 months PFT Pulmonary Function Test - complete F/U AIRPLANE PILOT AIRPLANE PILOT FUA 6 months Follow Up Appt 6 months CPT-97683 EKG (In office) F/U MMM MMM FUA 1 month Follow Up Appt 1 month CV Cardioversion ARIS Transesophageal echocardiogram ([facility]) F/U MMM MMM FUA 6 months Follow Up Appt 6 months [id number] SNOMED-CT: [id number] Current Medications Documented F/U AIRPLANE PILOT AIRPLANE PILOT FUA 6 months Follow Up Appt 6 months F/U MMM MMM FUA 6 months Follow Up Appt 6 months CPT-50802 EKG (In office) F/U AIRPLANE PILOT AIRPLANE PILOT FUA 3 months Follow Up Appt 3 [...]
--- OUTSIDE RECORDS SUMMARY | 2018-05-19 13:52 | XMS RPT_ITS | Clinical Summary ---
:1945 Author Organization [facility], [facility] Address [address] [place] [phone] Phone Care Team Providers Name Role Phone NINI Monroe, Flores Castellon Unavailable Unavailable Conditions or Problems Problem Problem Onset Status Entry Provider Comment Standard Annotate Name Code Date Date Description Cardiomyopa 60976607 Active Lilliana Mahmood Cardiomyopathy thy (SNOMED 10/30 10/[address]) Acute I50.21 Active Lilliana Mahmood Acute systolic systolic (ICD-10-CM 10/30 10/30 RN (congestive) (congestive ) heart failure ) heart failure Acute 73273126 Active Alessio Castellon Acute cholecystit (SNOMED 10/28 10/[address] [place] [address]) Overweight 869382436 Active Natalie Tee Overweight (SNOMED 10/28 10/[address]) RN Dyspnea 163780199 Active Flores Castellon Dyspnea (SNOMED 10/02 10/[address]) 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 Erika Moody 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 Chronic 927933588 Active Erika Moody Chronic diastolic (SNOMED 05/23 05/[address] [place] [address]) RN failure failure Hx of 833684829 Active Erika Moody Maze procedure pulmonary (SNOMED 09/19 09/19 Viet for atrial vein [address]) RN fibrillation isolation for atrial fib Paroxysmal 297030854 Active Erika Moody Paroxysmal atrial (SNOMED 05/23 05/[address]) RN fibrillation n 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 Flores Castellon 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 Body Mass 178580604 Resolved Flores Castellon Finding of body Index (SNOMED 01/06 01/06 NINI Monroe mass index 27.0-27.9, CT) adult Family [id number] Resolved Flores Castellon Family history History of (SNOMED 01/20 NINI Monroe of stroke CVA or CT) Stroke High risk 643151740 Active Lilliana Mahmood Long-term drug meds long (SNOMED 06/15 06/[address]) Family [id number] Removed Susan Castellon Family history History of (SNOMED 01/20 Bubba, of stroke CVA or CT) PA-C Stroke Body mass Z68.28 Active Susan Castellon Body mass index index (BMI) (ICD-10-CM 01/20 01/20 Bubba, (BMI) 28.0-28.9, ) PA-C 28.0-28.9, adult adult Body Mass 531697696 Removed Susan Castellon Finding of body Index (SNOMED 01/06 01/06 Bubba, mass index 27.0-27.9, CT) PA-C adult CONGESTIVE 70897072 Inactive Flores Castellon Congestive HEART (SNOMED 05/23 05/23 NINI Monroe heart failure FAILURE CT) ATRIAL 69682620 Inactive Flores Castellon Atrial FIBRILLATIO (SNOMED 05/23 05/23 NINI Monroe fibrillation N CT) Medications Medication Instructions Start Stop Generic Name [facility] Provider Date Date TOPROL XL 50 MG One tablet by METOPROLOL [id number] Maxim S [id number] mouth daily /25 SUCCINATE MD Fred COUMADIN 2 MG take 1 mg on WARFARIN SODIUM 21424853386 Maxim S TABS Tues and Weds, /24 MD Fred 2 mg daliy rest of week or as directed COUMADIN 4 MG One tablet by WARFARIN SODIUM 79848786115 Stevenson Rees TABS mouth every /24 RN ADVANCED-C evening METOPROLOL One tablet by METOPROLOL 77202871144 Maxim S SUCCINATE ER 100 mouth daily /25 SUCCINATE MD Fred MG [id number] ELIQUIS 5 MG One tablet by APIXABAN [id number] [place] TABS mouth twice / MD Fred daily AMIODARONE HCL Two tablets by AMIODARONE HCL 85306566899 Jose Sood 200 MG TABS mouth three MD Lawrence times daily X 3 days then One tablet by mouth twice daily ELIQUIS 5 MG One tablet by APIXABAN 83898067967 Susan M TABS mouth twice / Mac, daily PA-C METOPROLOL One tablet by METOPROLOL 11711778322 Susan aCstellon SUCCINATE ER 100 mouth daily /25 SUCCINATE Mac, MG [id number] PA-C ELIQUIS 5 MG One tablet by APIXABAN 81071343176 Maxim S TABS mouth twice / MD Fred daily XARELTO 20 MG One tablet by RIVAROXABAN 96496089145 Maxim S TABS mouth daily / MD Fred ASPIRIN 325 MG One tablet by ASPIRIN 50250747954 Maxim S TABS mouth daily / MD Fred NASONEX 50 Take as MOMETASONE 85404217879 Flores M MCG/ACT SUSP directed FUROATE NINI Monroe NASONEX 50 Take as MOMETASONE 32372930978 Lilliana Nay Ela MCG/ACT SUSP directed /10/30 FUROATE RN OMEGA 3 CPDR One tablet by OMEGA-3 FATTY 20079971912 Flores M mouth daily / ACIDS CPDR NINI Monroe OMEGA 3 CPDR One tablet by OMEGA-3 FATTY 36201854706 Lilliana A Ela mouth daily /10/30 ACIDS CPDR NINI ASPIRIN EC 81 MG One tablet by ASPIRIN 23511711641 Flores M TBEC mouth daily / NINI Monroe ASPIRIN EC 81 MG One tablet by ASPIRIN 23624772269 Lilliana A Ela TBEC mouth daily /10/30 RN DILTIAZEM HCL ER One tablet by DILTIAZEM HCL 71835843747 Lilliana A Ela 180 MG [id number] mouth twice / RN daily DILTIAZEM HCL ER One tablet by DILTIAZEM HCL 48846273757 [place] S 180 MG [id number] mouth twice /10/31 MD Fred daily METOPROLOL One tablet by METOPROLOL 60606427307 Lilliana A Ela TARTRATE 100 MG mouth twice / TARTRATE RN TABS daily LASIX 40 MG TABS One tablet by FUROSEMIDE 35009775024 Lilliana A Ela mouth twice / RN daily LASIX 40 MG TABS One tablet by FUROSEMIDE 62301089802 Maxim S mouth twice /10/31 MD Fred daily POTASSIUM One tablet by POTASSIUM 63355482391 Lilliana A Ela CHLORIDE ER 20 mouth daily / CHLORIDE RN MEQ CR-TABS POTASSIUM One tablet by POTASSIUM 20925725848 [place] S CHLORIDE ER 20 mouth daily /10/31 CHLORIDE MD Fred MEQ CR-TABS MULTIVITAMINS One tablet by MULTIPLE VITAMIN Flores M TABS mouth daily / [facility] VIT[facility]IN D 1000 One tablet by CHOLECALCIFEROL 38420167109 Flores M UNIT TABS mouth daily / [facility] ANTIVERT 25 MG As needed MECLIZINE HCL Flores M TABS / [facility] RN MELATONIN 3 MG One tablet by MELATONIN 87766475975 Flores M TABS mouth at / [facility] bedtime. As needed VITAMIN B-12 500 One tablet by CYANOCOBALAMIN 11250360086 Flores M MCG TABS mouth daily / [place], RN OMEPRAZOLE 40 MG One tablet by OMEPRAZOLE 95462656313 Lilliana A Ela CPDR mouth daily / RN CALCIUM 500 MG One tablet by CALCIUM 15452328055 Lilliana A Ela TABS mouth daily / RN XARELTO 20 MG One tablet by RIVAROXABAN 04998430086 Lilliana A Ela TABS mouth daily /11 02/06 RN METOPROLOL Two tablets by METOPROLOL 71738033148 Susan M SUCCINATE ER 50 mouth daily /25 SUCCINATE Mac, MG [id number] MARIANNE AMIODARONE HCL Two tablets by AMIODARONE HCL 81538370755 Lilliana A Ela 200 MG TABS mouth twice /04 RN daily X 1 week then One tablet by mouth daily ELIQUIS 5 MG One tablet by APIXABAN 78959479494 Flores M TABS mouth twice /10/02 [facility] daily LASIX 40 MG TABS as needed for FUROSEMIDE 57353940485 Maxim S LE edema / MD Fred AMIODARONE HCL Two tablets by AMIODARONE HCL 65506678830 Lilliana A Ela 200 MG TABS mouth three /04 RN times daily X 3 days then One tablet by mouth twice daily AMIODARONE HCL Two tablets by AMIODARONE HCL 24028691666 Lilliana A Ela 200 MG TABS mouth three /04 2 RN times daily X 3 days then One tablet by mouth twice daily ASPIRIN 325 MG One tablet by ASPIRIN 37538610602 Lilliana A Ela TABS mouth daily /20 RN ASPIRIN 325 MG One tablet by ASPIRIN 09522850844 Flores M TABS mouth daily /20 05/14 [place], RN LASIX 40 MG TABS as needed for FUROSEMIDE 62896711705 Lilliana A Ela LE edema /20 RN LASIX 40 MG TABS as needed for FUROSEMIDE 49785053043 Flores M LE edema /20 05/14 [place], RN OMEPRAZOLE 40 MG One tablet by OMEPRAZOLE 41155047852 Flores M CPDR mouth twice [place], RN daily OMEPRAZOLE 40 MG One tablet by OMEPRAZOLE 72521514314 Flores M CPDR mouth twice /10/02 [place], RN daily METOPROLOL One tablet by METOPROLOL 33722589869 Erika K SUCCINATE ER 100 mouth daily /20 SUCCINATE Viet MG [id number] 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: MULTIVITAMINS One tablet MULTIPLE VITAMIN Erika K TABS by mouth Viet TERRAZAS daily MULTIVITAMINS One tablet 201 MULTIPLE VITAMIN Maxim S TABS by mouth 4/0 MD Fred daily 06/13 5 VITAMIN D 1000 One tablet CHOLECALCIFEROL 29357017703 Erika K UNIT TABS by mouth Viet TERRAZAS daily VITAMIN D 1000 One tablet 201 CHOLECALCIFEROL 99347506693 Maxim S UNIT TABS by mouth 4/0 MD Fred daily 06/13 5 LASIX 40 MG TABS One tablet FUROSEMIDE 39366425474 Erika K by mouth Viet TERRAZAS daily LASIX 40 MG TABS One tablet 201 FUROSEMIDE 54451286942 Maxim S by mouth 4/0 MD Fred daily 06/13 5 PRADAXA 150 MG One tablet DABIGATRAN 73005824962 Erika K CAPS by mouth ETEXILATE MESYLATE Viet TERRAZAS twice daily PRADAXA 150 MG One tablet 201 DABIGATRAN 01962945362 Susan Castellon CAPS by mouth 4/0 ETEXILATE MESYLATE Bubba, twice daily 12/11 PA-C 8 METOPROLOL one half METOPROLOL 87397023498 Susan Castellon SUCCINATE ER 100 daily SUCCINATE Mac, MG [id number] PA-C TRAZODONE HCL 50 nightly as TRAZODONE HCL 27012336975 Susan M MG TABS needed Mac, PA-C TRAZODONE HCL 50 nightly as 201 TRAZODONE HCL 11382092038 [place] S MG TABS needed 5/0 MD Fred 2/2 0 ASPIRIN 81 MG One tablet ASPIRIN 57005477994 Susan M TABS by mouth Bubba, daily PA-C ASPIRIN 81 MG One tablet 201 ASPIRIN 40448692438 [place] S TABS by mouth 5/0 MD Fred daily 2/2 0 METOPROLOL One half METOPROLOL 48553502711 [place] S SUCCINATE ER 100 tablet by SUCCINATE MD Fred MG [id number] mouth daily OMEPRAZOLE 40 MG One tablet OMEPRAZOLE 52484630312 [place] S CPDR by mouth MD Fred daily as needed OMEPRAZOLE 40 MG One tablet 201 OMEPRAZOLE 42762922207 Susan Castellon CPDR by mouth 5/0 Mac, daily as 01/10 PA-C needed 1 FLONASE 50 Take as FLUTICASONE [id number] Susan Castellon MCG/ACT SUSP directed PROPIONATE Bubba PA-C FLONASE 50 Take as 201 FLUTICASONE 98180541112 Susan Castellon MCG/ACT SUSP directed 5/0 PROPIONATE Mac, 01/10 PA-C 1 Medications Administered No information available. 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 Dietary management education, guidance, and counseling [...] INTERVAL new path ms QT interval, electrocardiogram AL INTERVAL 134 ms AL interval, electrocardiogram EKGHRTRATE 52 BPM heart rate on electrocardiogram Coumadin Management: Warfarin Calc INR PT SRC Fingerstick Source of INR (PT) measurement PT PATIENT 0 s prothrombin time (patient) INR 3.1 international normalized ratio (INR) INR RANGE 2 to 3 international normalized ratio (INR) range Plan of Care Type Date Detail Appointment 03:30 PM Maxim Ibarra MD, [address] [facility], [address], [place], [address], Referral Cardiac Referral Ajay Hammond MD, [address], [address], [place], [address] Referral EPS Referral Nathan Mane, [facility], [address] [place] [address], [address] Referral EPS Referral Nathan Mane [facility], [address] [place] [address], [address] Referral excluded from report: Pending order MMM Pending order Follow Up Appt 4 months Pending order EKG (In office) Pending order Follow Up as needed Pending order EKG (In office) Pending order *PT/INR - Standing Order Pending order MMM Pending order Follow Up Appt 3 months Pending order Pulmonary Function Test - complete Pending order DRIVER TRAINER Pending order Follow Up Appt 6 months Pending order EKG (In office) Pending order MMM Pending order Follow Up Appt 1 month Pending order Transesophageal echocardiogram (ARIS) Pending order Cardioversion Pending order MMM Pending order Follow Up Appt 6 months Pending order DRIVER TRAINER Pending order Follow Up Appt 6 months Pending order EKG (In office) Pending order MMM Pending order Follow Up Appt 6 months Pending order DRIVER TRAINER Pending order Follow Up Appt 3 months Procedures Code Procedure Name Date Entry Date F/U MMM MMM FUA 4 months Follow Up Appt 4 months [id number]-43596 EKG (In office) Cardiac Referral Cardiac Referral EPS EPS Referral Order excluded from report: F/U MMM MMM FUA 3 months Follow Up Appt 3 months PFT Pulmonary Function Test - complete F/U DRIVER TRAINER DRIVER TRAINER FUA 6 months Follow Up Appt 6 months [id number] EKG (In office) F/U MMM MMM FUA 1 month Follow Up Appt 1 month CV Cardioversion ARIS Transesophageal echocardiogram ([facility]IS) F/U MMM MMM FUA 6 months Follow Up Appt 6 months [id number] SNOMED-CT: [id number] Current Medications Documented F/U DRIVER TRAINER DRIVER TRAINER FUA 6 months Follow Up Appt 6 months F/U MMM MMM FUA 6 months Follow Up Appt 6 months CPT-77726 EKG (In office) F/U DRIVER TRAINER DRIVER TRAINER FUA 3 months Follow Up Appt 3 [...]
--- OUTSIDE RECORDS SUMMARY | 2018-05-19 13:53 | XMS RPT_ITS | Clinical Summary ---
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 failure failure Hx of 678814528 Active Erika Moody Maze procedure pulmonary (SNOMED 09/19 09/[address]) RN fibrillation isolation for atrial fib Paroxysmal 522899690 Active Erika Moody Paroxysmal atrial (SNOMED 05/23 05/[address]) RN fibrillation 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 Flores Castellon 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 Body Mass 031007453 Resolved Flores Castellon Finding of Index (SNOMED 01/06 01/06 NINI Monroe body mass 27.0-27.9, CT) index adult Family [id number] Resolved Flores Castellon Family history History of (SNOMED 01/20 NINI Monroe of stroke CVA or CT) Stroke High risk 673058960 Active Lilliana Mahmood Long-term drug meds long (SNOMED 06/15 06/[address]) Family [id number] Removed Susan Castellon Family history History of (SNOMED 01/20 Bubba, of stroke CVA or CT) PA-C Stroke Body mass Z68.28 Active Susan Castellon Body mass index (BMI) (ICD-10-CM 01/20 01/20 Mac, index (BMI) 28.0-28.9, ) PA-C 28.0-28.9, adult adult Body Mass [id number] Removed Susan Cande Finding of Index (SNOMED 01/06 01/06 Bubba, body mass 27.0-27.9, CT) PA-C index adult CONGESTIVE 95920849 Inactive Flores Castellon Congestive HEART (SNOMED 05/23 05/23 NINI Monroe heart failure FAILURE CT) ATRIAL 72139540 Inactive Flores Castellon Atrial FIBRILLATION (SNOMED 05/23 05/[address]) Medications Medication Instructions Start Stop Generic Name ND Provider Date Date COUMADIN 4 MG One tablet by WARFARIN SODIUM [id number] Stevenson Nay Rees TABS mouth every /24 FAMILY SERVICES ASSISTANT-C evening ELIQUIS 5 MG One tablet by APIXABAN [id number] Maxim S TABS mouth twice / MD Fred daily METOPROLOL One tablet by METOPROLOL [id number] [place] S SUCCINATE ER 100 mouth daily /25 SUCCINATE MD Fred MG [id number] AMIODARONE HCL Two tablets by AMIODARONE HCL 57670545681 Jose Sood 200 MG TABS mouth MD Lawrence times daily X 3 days then One tablet by mouth twice daily ELIQUIS 5 MG One tablet by APIXABAN [id number] Susan Castellon TABS mouth twice /28 Mac, daily PA-C METOPROLOL One tablet by METOPROLOL [id number] Susan Castellon SUCCINATE ER 100 mouth daily /25 SUCCINATE Mac, MG [id number] PA-C ELIQUIS 5 MG One tablet by APIXABAN [id number] [place] S TABS mouth twice /28 MD Fred daily XARELTO 20 MG One tablet by RIVAROXABAN [id number] [place] S TABS mouth daily / MD Fred ASPIRIN 325 MG One tablet by ASPIRIN 14808299824 [place] S TABS mouth daily / MD Fred XARELTO 20 MG One tablet by RIVAROXABAN 20428388802 Lilliana A Ela TABS mouth daily /02/06 RN METOPROLOL Two tablets by METOPROLOL [id number] Susan Castellon SUCCINATE ER 50 mouth daily / SUCCINATE Mac, MG [id number] MARIANNE AMIODARONE HCL Two tablets by AMIODARONE HCL 18129140563 Lilliana A Ela 200 MG TABS mouth twice / RN daily X 1 week then One tablet by mouth daily FLONASE 50 Take as FLUTICASONE 03173301559 Susan Castellon MCG/ACT SUSP directed PROPIONATE MARIANNE Mac ASPIRIN 81 MG One tablet by ASPIRIN 41102430368 Susan Castellon TABS mouth daily MARIANNE Mac PRADAXA 150 MG One tablet by DABIGATRAN 66244464700 Susan Castellon CAPS mouth twice /01/06 ETEXILATE Bubba, daily MESYLATE MARIANNE LASIX 40 MG TABS as needed for FUROSEMIDE 61212855966 Maxim S LE edema / MD Fred AMIODARONE HCL Two tablets by AMIODARONE HCL 71175057841 Lilliana A Ela 200 MG TABS mouth three RN times daily X 3 days then One tablet by mouth twice daily AMIODARONE HCL Two tablets by AMIODARONE HCL 01036023253 Lilliana A Ela 200 MG TABS mouth three /06/18 RN times daily X 3 days then One tablet by mouth twice daily ASPIRIN 325 MG One tablet by ASPIRIN 97806024607 Lilliana A Ela TABS mouth daily / RN ASPIRIN 325 MG One tablet by ASPIRIN 91051470193 Flores M TABS mouth daily /20 05/14 NINI Monroe LASIX 40 MG TABS as needed for FUROSEMIDE 81352274867 Lilliana A Ela LE edema / RN LASIX 40 MG TABS as needed for 2015/ FUROSEMIDE 25265075365 Flores Castellon LE edema /20 05/14 NINI Monroe MULTIVITAMINS One tablet by MULTIPLE VITAMIN Flores M TABS mouth daily / Mabel, RN VITAMIN D 1000 One tablet by CHOLECALCIFEROL 21987408979 Flores M UNIT TABS mouth daily / Mabel, RN ANTIVERT 25 MG As needed MECLIZINE HCL Flores M TABS / Mabel, RN MELATONIN 3 MG One tablet by MELATONIN [id number] Flores M TABS mouth at Mabel, NINI bedtime. 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: MULTIVITAMINS One tablet MULTIPLE VITAMIN Erika K TABS by mouth Viet daily RN MULTIVITAMINS One tablet 201 MULTIPLE VITAMIN [place] S TABS by mouth 4/0 MD Frde daily 2/2 5 VITAMIN D 1000 One tablet CHOLECALCIFEROL 66843411186 Erika K UNIT TABS by mouth Viet daily RN VITAMIN D 1000 One tablet 201 CHOLECALCIFEROL 92489752481 [place] S UNIT TABS by mouth 4/0 MD Fred daily 2/2 5 LASIX 40 MG TABS One tablet FUROSEMIDE 76567018577 Erika K by mouth Viet daily RN LASIX 40 MG TABS One tablet 201 FUROSEMIDE 32395707250 Maxim S by mouth 4/0 MD Fred daily 2/2 5 PRADAXA 150 MG One tablet DABIGATRAN [id number] Erika Moody CAPS by mouth ETEXILATE Viet twice daily MESYLATE RN METOPROLOL one half METOPROLOL 31371458502 Susan Castellon SUCCINATE ER 100 daily SUCCINATE Mac, MG NL42O-AMC PA-Yves TRAZODONE HCL 50 nightly as TRAZODONE HCL 49823171714 Susan Castellon MG TABS needed MARIANNE Mac TRAZODONE HCL 50 nightly as 201 TRAZODONE HCL 11441082448 Maxim S MG TABS needed 5/0 MD Fred 2/2 0 ASPIRIN 81 MG One tablet 201 ASPIRIN 07278938494 Maxim S TABS by mouth 5/0 MD Fred daily 2/2 0 METOPROLOL One half METOPROLOL 04148435507 Maxim S SUCCINATE ER 100 tablet by SUCCINATE MD Fred MG [id number]-[id number] mouth daily OMEPRAZOLE 40 MG One tablet OMEPRAZOLE 04094403288 [place] S CPDR by mouth MD Fred daily as needed OMEPRAZOLE 40 MG One tablet 201 OMEPRAZOLE 78984936699 Susan Castellon CPDR by mouth 5/0 Mac, daily as 01/10 PA-C needed 1 FLONASE 50 Take as 201 FLUTICASONE 82426267090 Susan Castellon MCG/ACT SUSP directed 5/0 PROPIONATE Bubba, 01/10 PA-C 1 Medications Administered No information available. Allergies, Adverse Reactions, Alerts Allergy Name Reaction Start Date Severity Status Provider Description ALBUTEROL Irregular heart Critical Active Maxim S darrell Ibarra MD AMIODARONE Severe dyspnea Severe Active Lilliana Mahmood RN after taking PO Amiodarone CARDIZEM swelling Critical Active Susan Mac PA-C HYDROCODONE vomiting Moderate Active Erika Llanos RN MORPHINE vomiting Moderate Active Erika Llanos RN ADHESIVE TAPE rash Moderate Active Erika Llanos RN NAPROXEN Moderate Active Erika Llanos RN Results Date Name Value Unit Range Flag Description Office Visit CHD 10YR Not enough General cardiovascular RSK information disease 10Y risk [#] [place] C[facility] RSK C cardiac risk group GRP Clinical Lists Update: Preload BNP 237.7 H B-type natriuretic peptide (brain natriuretic peptide) TSH 2.21 u[iU]/m thyroid L stimulating hormone, serum T4, FREE 0.96 ng/dL thyroxine, serum, free T4, TOTAL 9.1 ug/dL thyroxine, serum, total T3 TOTAL 0.91 ng/mL T3, Total T3 FREE 2.5 pg/mL triiodothyronine, free, serum MAGNESIUM 1.7 mg/dL L magnesium, serum GLUCOSE SER 105 mg/dL blood glucose BUN/CREAT 22.4 H urea nitrogen/creatinin e ratio, serum ANION GAP 6 anion gap, serum RBC M/UL 4.43 10*6/uL red blood count 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 Clinical Lists Update: Preload CARDEFECHO 70 % Left ventricular Ejection fraction Clinical Lists Update CALCIUM 8.4 mg/dL calcium, [...] [facility] ECG Observations EKG INTERP Atrial fibrillation electrocardiogram -ST depression interpretation -Nondiagnostic. ABNORMAL EKG T AXIS 38 deg T wave axis, electrocardiogram EKG QRS AXIS -11 deg QRS axis, electrocardiogram EKG PWAVAXIS 1 deg P wave axis, electrocardiogram QRS INTERVAL 86 ms QRS duration, electrocardiogram ZZ-GE-unk 442 ms GE use only - for LinkLogic import when terms are not otherwise specified QT INTERVAL new path ms QT interval, electrocardiogram GA INTERVAL 0 ms GA interval, electrocardiogram EKGHRTRATE 137 BPM heart rate on electrocardiogram Plan of Care Type Date Detail Appointment 03:00 PM [address], [address], [place], [address], Appointment 03:45 PM Maxim Ibarra MD, [address], [address], [place], [address], Referral Cardiac Referral Ajay Hammond MD, [address], [address], [place], [address] Referral Cardiac Referral Ajay Hammond MD, [address], [address], [place], [address] Referral EPS Referral Nathan Mane [facility], [address] [place] [address], [address] Referral EPS Referral Nathan Mane [facility], [address] [place] [address], [address] Referral excluded from report: Pending order MMM Pending order Follow Up Appt 3 months Pending order Pulmonary Function Test - complete Pending order RECRUITER MANAGER Pending order Follow Up Appt 6 months Pending order EKG (In office) Pending order MMM Pending order Follow Up Appt 1 month Pending order Transesophageal echocardiogram ([facility]IS) Pending order Cardioversion Pending order MMM Pending order Follow Up Appt 6 months Pending order RECRUITER MANAGER Pending order Follow Up Appt 6 months Pending order EKG (In office) Pending order MMM Pending order Follow Up Appt 6 months Pending order RECRUITER MANAGER Pending order Follow Up Appt 3 months Procedures Code Procedure Name Date Entry Date EPS EPS Referral Order excluded from report: F/U MMM MMM FUA 3 months Follow Up Appt 3 months PFT Pulmonary Function Test - complete F/U RECRUITER MANAGER RECRUITER MANAGER FUA 6 months Follow Up Appt 6 months CPT-74450 EKG (In office) F/U MMM MMM FUA 1 month Follow Up Appt 1 month CV Cardioversion [facility]IS Transesophageal echocardiogram ([facility]) F/U MMM MMM FUA 6 months Follow Up Appt 6 months [facility]-[id number] SNOMED-CT: [id number] Current Medications Documented F/U RECRUITER MANAGER RECRUITER MANAGER FUA 6 months Follow Up Appt 6 months F/U MMM MMM FUA 6 months Follow Up Appt 6 months CPT-27439 EKG (In office) F/U RECRUITER MANAGER RECRUITER MANAGER FUA 3 months Follow Up Appt 3 months Vital Signs Date Name Value Unit Description BMI (Body Mass Index) 28.32 kg/m2 Body Mass Index [Ratio] BP Diastolic 52 mm[Hg] blood pressure, diastolic - 8462-4 BP Systolic 130 mm[Hg] blood pressure, systolic - 8480-6 BSA (Body Surface 1.63 body surface area Area) Heart Rate 54 /min pulse rate E&M - 8867-4 Height 60 [in_us] height E&M - 8302-2 Respiratory Rate 16 /min respiratory rate E&M - 9279-1 Weight Measured 145 [lb_av] weight E&M - 3141-9
--- OUTSIDE RECORDS SUMMARY | 2018-05-19 13:53 | XMS RPT_ITS ---
:1945 Author Organization OH[facility] Care Team Providers Name Role Phone GANTA, MINERVA Attending Unavailable GANTA, MINERVA Referring Unavailable GANTA, MINERVA Referring Unavailable GANTA, MINERVA Attending Unavailable GANTA, MINERVA Referring Unavailable GANTA, MINERVA Referring Unavailable GANTA, MINERVA Referring Unavailable GANTA, MINERVA Referring Unavailable GANTA, MINERVA Attending Unavailable GANTA, MINERVA Referring Unavailable GANTA, MINERVA Attending Unavailable GANTA, MINERVA Referring Unavailable KAYDEN ANN (DIGITAL MARKETER) Attending Unavailable Janie Penn Attending Unavailable Susan Mac Attending Unavailable Ganta, Minerva Referring Unavailable Ganta, Minerva Primary Care Unavailable Fred, Maxim Attending Unavailable Ganta, Minerva Referring Unavailable Fred, Hebron Attending Unavailable Ganta, Minerva Primary Care Unavailable Fred, Hebron Referring Unavailable Fred, Maxim Attending Unavailable Fred, Maxim Referring Unavailable Ganta, Minerva Primary Care Unavailable Fred, Hebron Consulting Unavailable PROBLEMS PROBLEMS DATE TYPE CONDITION / CODE ATTENDING STATUS SOURCE 04/06/2018 Unknown I48.0 - Paroxysmal Maxim Ibarra Active [place] [facility] fibrillation [facility] I48.0(ICD-10) Repository 11/20/2017 Active Deficiency of NA Active [facility] other specified B [place] [facility] vitamins / Repository E53.8(ICD-10) 11/20/2017 Active Effusion, left NA Active [facility] ankle / [place] M25.472(ICD-10) Repository 11/19/2017 Active Unknown / GANTA, MINERVA Active [facility] UNK(Unknown) [place] Repository 10/20/2017 Active Encounter for NA Active [facility] screening [place] mammogram for Repository malignant neoplasm of breast / Z12.31(ICD-10) 10/15/2017 Active Other fatigue / NA Active [facility] R53.83(ICD-10) [place] Repository 10/15/2017 Active Hypoglycemia, NA Active [facility] unspecified / [place] E16.2(ICD-10) Repository 10/15/2017 Active Vitamin D NA Active [facility] deficiency, [place] unspecified / Repository E55.9(ICD-10) PROCEDURES PROCEDURES No Procedure Records FoundRESULTS RESULTS ECHOCARDIOGRAM COMPLETE Observed: 04/06/2018 Status: F Source: [place] 4:35 PM [facility] REPOSITORY [facility] Cardiovascular Services [address] [place] [id number] Echo Complete 04/06/18 1526 MR#: [id number] Acct: [id number] Name: ELIZABETH DELGADO Rep #: [id number] : 1945 72 From: Maxim Ibarra MD Attending Dr: Maxim Ibarra MD Status: REG CLI Ordering Dr: Maxim Ibarra MD Date: 04/06/18 Location: [facility]S Sex: F C Admitted: Reason For Study: AFIB Procedure This was a 2D Doppler, Color Flow transthoracic echocardiogram. Exam performed in department. Left Ventricle Normal LV size. Left ventricular systolic function is normal. The estimated ejection fraction is 55 %. Stage 2 diastolic dysfunction. No regional wall motion abnormalities noted. Right Ventricle Normal RV size. Normal systolic function. Atria Normal left atrium. Normal right atrium. Mitral Valve Mild diffuse mitral valve thickening. Mild-Moderate (1-2+) eccentric mitral valve insufficiency. Tricuspid Valve Normal tricuspid valve. Mild to moderate (1-2+) tricuspid valve insufficiency. Pulmonary artery systolic pressure is 37 mmHg. Aortic Valve Trisinus/trileaflet aortic valve. Mild focal aortic valve calcification. Pulmonic Valve Normal pulmonic valve. Great Vessels Normal aortic root. The pulmonary artery is normal size. Normal inferior vena cava. Pericardium/Pleural No pericardial effusion. MMode/2D Measurements AND Calculations LVIDd: 4.0 cm IVSd: 1.2 cm LVOT diam: 1.8 cm LVIDs: 2.4 cm LVPWd: 1.00 cm LVOT area: 2.5 cm2 RVDd: 3.8 cm FS: 38.7 % Ao root diam: 3.0 cm LAV(MOD-bp): 56.5 ml LA A4 area: 19.5 cm2 LAV(MOD-bp) Indexed: 35.2 ml/m2 LAV(MOD-sp2): 54.0 ml LAV(MOD-sp4): 54.8 ml LA dimension(2D): 4.0 cm RA A4 area: 10.5 cm2 Time Measurements MV dec time: 0.22 sec Doppler Measurements AND Calculations MV E max lazarus: 104.6 cm/sec Lat Peak E' Lazarus: 6.8 cm/sec Med Peak E' Lazarus: 5.3 cm/sec MV A max lazarus: 58.6 cm/sec E/E' lat: 15.3 E/E' med: 19.6 MV E/A: 1.8 Ao V2 max: 204.4 cm/sec LV V1 max: 152.7 cm/sec SV(LVOT): 92.9 ml Ao max P.7 mmHg LV V1 max P.3 mmHg Ao V2 mean: 138.5 cm/sec LV V1 mean P.2 mmHg Ao mean P.6 mmHg LV V1 mean: 106.4 cm/sec Ao V2 VTI: 47.4 cm LV V1 VTI: 37.4 cm RHONDA(I,D): 2.0 cm2 RHONDA(V,D): 1.9 cm2 PA V2 max: 126.9 cm/sec PI end-d lazarus: 69.7 cm/sec TR max lazarus: 290.0 cm/sec TR max P.7 mmHg Interpretation Summary Normal LV size. Left ventricular systolic function is normal. The estimated ejection fraction is 55 %. Stage 2 diastolic dysfunction. Mild-Moderate (1-2+) eccentric mitral valve insufficiency. Mild to moderate (1-2+) tricuspid valve insufficiency. Compared to previous study, the left ventricular systolic function has improved.. Ordering Physician: Maxim Ibarra Referring Physician: MINERVA SHAVER Performed By: June Lucero, KOLE, RVT 04/06/18 1635 Date Maxim Ibarra MD CC: Minerva Shaver MD; Maxim Ibarra MD Date Dictated: 04/06/18 1526 Date Transcribed: 04/06/181634 Cyber Security Engineer: Signed CARDIOLOGY VISIT Observed: 03/30/2018 Status: F Source: [place] REPORT 3:30 PM [facility] REPOSITORY [facility] [address] [place] [address]. [address] [place] [address] OFFICE VISIT Date of Service: 03/17/18 MR#: [id number] Acct: [id number] Name: ELIZABETH DELGADO Rep #: [id number] : 1945 Provider: Maxim Ibarra MD Age/Sex: 72/F Location: [facility] Status: Signed HPI HPI Chief Complaint: Follow-up visit. Details: ELIZABETH DELGADO, is a 72 F who presents to the office today for a follow-up visit. She is a lady with a history of atrial for ablation with a rapid ventricular response rate as well as mild congestive heart failure. She appears to be much better at this time and maintaining sinus rhythm. She has not had any neck arm or jaw discomfort suggest angina no dizziness no palpitations no near syncope or syncope. She has been compliant with all her medications. Her physical exam today demonstrates clear lung jack regular rate and rhythm and no pedal edema. She does not have any elevation in her blood pressure. Intake Vital Signs03/17/18 Height 5 ft 03/17/18 Weight: 136 lb 03/17/18 Body Mass Index (BMI) 26.5 03/17/18 Blood Pressure 124/68 H H H 03/17/18 Blood Pressure Location Lt brachial Intake Visit Reasons: 6 M FU (we r/s from 03-13 AND 04-10) Manager Marketing Required: No Accompanied by: none Is patient in pain?: No Allergies diltiazem HCl [From Cardizem] Allergy (Verified 03/17/18 16:03) Swelling of face and neck naproxen Allergy (Verified 03/17/18 16:03) Swelling (whole body) amiodarone Adverse Reaction (Severe, Verified 03/17/18 16:03) Severe dyspnea after taking PO Amiodarone adhesive Adverse Reaction (Verified 03/17/18 16:03) Rash albuterol Adverse Reaction (Verified 03/17/18 16:03) Other codeine Adverse Reaction (Verified 03/17/18 16:03) Vomiting hydrocodone bitartrate [From Vicodin] Adverse Reaction (Verified 03/17/18 16:03) Vomiting morphine Adverse Reaction (Verified 03/17/18 16:03) Vomiting Medications Multivitamins,Therapeutic [Multivitamin] 1 tab PO DAILY 03/15/13 [History Confirmed 03/17/18] Cholecalciferol (VIT D3) [Vitamin D3] 1,000 unit PO DAILY 01/09/15 [History Confirmed 03/17/18] Meclizine HCl [Antivert] 25 mg PO Q6H PRN 01/09/15 [History Confirmed 03/17/18] Calcium Carbonate [Calcium] 500 mg PO DAILY 10/08/16 [History Confirmed 03/17/18] aspirin 81 mg tablet,delayed release 81 mg PO QDAY 09/08/17 [History Confirmed 03/17/18] metoprolol succinate ER 50 mg tablet,extended release 24 hr PO 90 Days #90 09/08/17 [History Confirmed 03/17/18] omega-3 fatty acids 1,000 mg capsule 1,000 mg PO DAILY 03/17/18 [History Confirmed 03/17/18] [facility] Medical History Cardiomyopathy in other diseases classified elsewhere (Chronic) Nonrheumatic aortic valve stenosis (Chronic) Non-rheumatic tricuspid valve insufficiency (Chronic) Acute cholecystitis (Chronic) GERD (gastroesophageal reflux disease) (Chronic) CHF (congestive heart failure) (Chronic) Atrial fibrillation (Chronic) Surgical History S/P bunionectomy (Resolved) H/O neck surgery (Resolved) ovarian surgery (Resolved) H/O hernia repair (Resolved) Hx of cholecystectomy (Resolved) Family History Sister Afib Father CAD (coronary artery disease) Brother CVA (cerebral vascular accident) Mother No problems noted. Sister No problems noted. Brother Wilsons disease Brother Wilsons disease Social History Smoking Status: Former smoker alcohol intake: never substance use type: does not use caffeine: Yes Type: coffee Number of servings: 1 what type of physical activity do you participate in: walking frequency: daily seatbelt use: always do you feel safe at home: Yes ROS Const Const: Negative for fatigue, weakness, night sweats, excessive sweating, frequent falls, headache(s) or daytime sleepiness Eyes Eyes: Negative for loss of peripheral vision, transient loss of vision, blind spots, double vision or blurry vision ENT ENT: Negative for headache(s), dizziness, balance problems, Nosebleed/epistaxis, tongue swelling or lip swelling Cardio Chest Pain: No Palpitations: No Edema: None Muscle aches with walking: None Resp Respiratory: Negative for SOB at rest, SOB orthopnea\SOB lying down, Cough, paroxysmal nocturnal dyspnea or SOB with activity GI GI: Negative nausea, vomiting, heartburn, black,tarry stools or bright, red blood in stools : Negative for hematuria Musc Musc: Negative for balance problems, muscle aches/ myalgia, muscle weakness or joint pain Skin Skin: Negative non-healing lesions, unusual bruising or rash Neuro Neuro: Negative for weakness, frequent falls, headache(s), double vision, dizziness, lightheadedness, orthostatic symptoms, blurry vision or lack of coordination Jaguar Hematologic/Lymphatic: Negative for easy bruising or easy bleeding Endo Endo: Negative for fatigue, excessive sweating, cold intolerance, heat intolerance, increased thirst/drinking or hair loss Psych Psych: Negative for anxiety or depression Allergy Allergy/Immunology: Negative for throat swelling, Negative for tongue swelling, Negative for hives, Negative for rash, Negative for lip swelling Cardiology Exam Const Appearance: cooperative, healthy appearing, well developed, well groomed and no acute distress Nutritional Appearance: well nourished and average body habitus Orientation: alert, awake and oriented x3 Head Head: normal to inspection, normocephalic and atraumatic Ears: hearing grossly normal bilaterally and external ears normal Nose: external nose normal, nasal mucous membranes and turbinates normal, nares normal, septum normal, no nasal discharge Face and Sinus: face symmetric Mouth: oral mucosae normal, tongue normal, oropharynx normal and moist mucous membranes Teeth and gingiva: dentition normal Throat: posterior oropharynx normal, tonsils normal and uvula midline Eyes General: appearance normal, both eyes and all related structures Eyelids: eyelids normal Conjunctivae: conjunctivae normal Pupils: PERRL, normal by confrontation and accommodation normal EOM: EOM intact bilaterally Neck Neck: normal visual inspection, trachea midline and no JVD JVD: +5 Carotids: normal carotid upstroke and bounding pulses Chest Chest inspection: normal inspection of the chest, symmetric chest movement and normal respiratory effort Auscultation: Bilateral: Clear to Auscultation Cardio Palpation: normal PMI Rate: regular rate Rhythm: regular rhythm Heart sounds: S1 normal, S2 normal and normal, physiologic split S2; negative rub, gallop or murmur GI GI: normal to inspection, soft, no hepatosplenomegaly and bowel sounds present Neuro General: alert, awake, oriented x3, no focal sensory deficit, gait normal and moves all extremities Skin Skin: no rashes or lesions noted Extremities Pulses: Normal: Right Femoral Pulse, Left Femoral Pulse, Right Dorsalis Pedis Pulse, Left Dorsalis Pedis Pulse, Right Posterior Tibial Pulse, Left Posterior Tibial Pulse, Right Radial Pulse, Left Radial Pulse Lower Extremity Edema: None: Bilateral Musculoskel Musculoskeletal: No joint tenderness Psych Psychological: normal affect Assessment AND Plan 1. Paroxysmal atrial fibrillation I48.0 Plan She does have a history of paroxysmal atrial fibrillation but appears to be maintaining sinus rhythm with the aspirin as well as the beta-karson. At this time I will not suggest that we make any changes to the above regimen. Orders Orders: 2. Cardiomyopathy in other diseases classified elsewhere I43 Plan She does have a history of cardiomyopathy with an estimated ejection fraction approximately 45%. With her maintaining sinus rhythm more I would recommend that we repeat her echocardiogram to see whether there has been any improvement and normalization in the above. Thank you for allowing me to participate in her care please not hesitate to contact me if any further issues arise. Plan Detail Follow Up 6 Months (mmm) Coding Level of Care Code Off vis,est,level 3 Diagnoses Paroxysmal atrial fibrillation I48.0 Atrial fibrillation type: paroxysmal Cardiomyopathy in other diseases classified elsewhere I43 Coding Level of Care Code Off vis,est,level 3 Diagnoses Paroxysmal atrial fibrillation I48.0 Atrial fibrillation type: paroxysmal Cardiomyopathy in other diseases classified elsewhere I43 03/30/18 1530 <Electronically signed by Maxim Ibarra MD> Date Mxaim Ibarra MD Cosigner Signature: Date (if applicable) CC: Minerva Shaver MD PROGRESS Observed: 03/13/2018 Status: COMPLETED Source: [place] 3:25 PM [facility] [place] REPOSITORY O ID: [id number] Author: Kayden (Ham Clerk) Thomas Service: (none) Author Type: Nurse Practitioner Type: Progress Notes Filed: 03/13/2018 4:02 PM Note Text: CC: Patient presents with: Recheck: Follow up, still coughing productive HPI: Elizabeth Delgado is a 72 year old female who presents to the office with complaint of respiratory symptoms, cough, productive, wheezing- clears with cough, fever, rhinorrhea and right ear pain for 2-3 weeks. Previously treated with Keflex, completed course of treatment ~1 week ago for sinusitis. Patient reports head congestion improved, now having more chest symptoms. Symptoms started with sore throat. She denies sore throat, facial pain/pressure, swollen glands, rash, nausea, vomiting and diarrhea. 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 Patient denies a history of no history of pneumonia or bronchitis. Ex-smoker and with a history of seasonal allergies. The ROS is otherwise negative. The patient's pmh, medications, allergies, and past visits are reviewed. PHYSICAL EXAM: BP 132/88 Pulse 78 Temp 36.6 ?C (97.9 ?F) (Temporal Artery) Resp 16 Wt 59.9 kg (132 lb) SpO2 96% BMI 25.78 kg/m? General appearance: tired/ill appearing, alert, cooperative, pleasant, in no acute distress Head: Normocephalic Eyes: conjunctiva pink and moist, no icterus, sclera white, non-injected Ears: Right ear: mild erythema of ear canal, TM - erythematous. Left ear: Normal, TM - clear with good landmarks Nose: clear rhinorrhea. Oropharynx:mild, moderate erythema Neck:supple and positive findings:+adenopathy Heart: Negative. RRR without obvious murmur, gallop, or rubs. No ectopy. Lungs: without rales or wheeze, diminished air exchange, pulse ox 96%, ASSESSMENT/PLAN: 1. Lower resp. tract infection - ICD9: 519.8, ICD10: J22 (primary diagnosis) - Likely patient would benefit from oral steroid- she declined d/t previous side-effects - AZITHROMYCIN 250 MG TABLET - BENZONATATE 100 MG CAPSULE - Follow up in 3-5 days if no symptom improvement - Reviewed red flag s/s and when to seek immediate medical attention, patient verbalizes understanding 2. Acute actinic otitis externa of right ear - ICD9: 380.22, ICD10: H60.511 - OFLOXACIN 0.3 % EAR DROPS - Follow up in 3-5 days if no symptom improvement Prescription instructions reviewed with patient as applicable. Potential red flag symptoms discussed with the patient. Reviewed appropriate action plan to take if red flag symptoms occur. Patient agreeable to treatment plan. Kayden Ann APRN.ANITHA CNOV Observed: 03/13/2018 Status: COMPLETED Source: [place] 3:20 PM [facility] REPOSITORY Office Visit (INTMWS) ELIZABETH DELGADO ([id number]) 1945 F MISSAEL Date Time Provider Department 03/13/18 3:20 PM KAYDEN ANN (ANITHA) INTMWS During your visit today, we recorded the following information about you: Temperature Pulse Respiration Blood pressure 97.9 degrees 78/minute 16/minute 132/88 Weight 59.9 kg Kayden Ann APRN.CNP 03/13/2018 4:02 PM Signed CC: Patient presents with: Recheck: Follow up, still coughing productive HPI: Elizabeth Delgado is a 72 year old female who presents to the office with complaint of respiratory symptoms, cough, productive, wheezing- clears with cough, fever, rhinorrhea and right ear pain for 2-3 weeks. Previously treated with Keflex, completed course of treatment ~1 week ago for sinusitis. Patient reports head congestion improved, now having more chest symptoms. Symptoms started with sore throat. She denies sore throat, facial pain/pressure, swollen glands, rash, nausea, vomiting and diarrhea. 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 Patient denies a history of no history of pneumonia or bronchitis. Ex-smoker and with a history of seasonal allergies. The ROS is otherwise negative. The patient's pmh, medications, allergies, and past visits are reviewed. PHYSICAL EXAM: BP 132/88 Pulse 78 Temp 36.6 ?C (97.9 ?F) (Temporal Artery) Resp 16 Wt 59.9 kg (132 lb) SpO2 96% BMI 25.78 kg/m? General appearance: tired/ill appearing, alert, cooperative, pleasant, in no acute distress Head: Normocephalic Eyes: conjunctiva pink and moist, no icterus, sclera white, non-injected Ears: Right ear: mild erythema of ear canal, TM - erythematous. Left ear: Normal, TM - clear with good landmarks Nose: clear rhinorrhea. Oropharynx:mild, moderate erythema Neck:supple and positive findings:+adenopathy Heart: Negative. RRR without obvious murmur, gallop, or rubs. No ectopy. Lungs: without rales or wheeze, diminished air exchange, pulse ox 96%, ASSESSMENT/PLAN: 1. Lower resp. tract infection - ICD9: 519.8, ICD10: J22 (primary diagnosis) - Likely patient would benefit from oral steroid- she declined d/t previous side-effects - AZITHROMYCIN 250 MG TABLET - BENZONATATE 100 MG CAPSULE - Follow up in 3-5 days if no symptom improvement - Reviewed red flag s/s and when to seek immediate medical attention, patient verbalizes understanding 2. Acute actinic otitis externa of right ear - ICD9: 380.22, ICD10: H60.511 - OFLOXACIN 0.3 % EAR DROPS - Follow up in 3-5 days if no symptom improvement Prescription instructions reviewed with patient as applicable. Potential red flag symptoms discussed with the patient. Reviewed appropriate action plan to take if red flag symptoms occur. Patient agreeable to treatment plan. Kayden Ann APRN.DIGITAL MARKETER Referring Provider: SELF [[id number]] Allergies As of Date: 03/13/2018 Noted Allergy Reaction CARDIZEM (DILTIAZEM HCL) 01/18/2015 7 - Swelling CODEINE 01/21/2006 11 - Vomiting Comments: Ringing in Ears. ENTEX (PHENYLEPHRINE-GUAIFENESIN) 03/06/2007 2 - Rash ETODOLAC 07/06/2012 14 - Other: See Comments Comments: Heart palpitations MELOXICAM 05/25/2012 14 - Other: See Comments Comments: Heart palpitations NAPROXEN 01/29/2011 7 - Swelling Comments: Possible allergy? Pt relates to naproxen surgical tape adhesives [Other] 08/31/2008 2 - Rash TRAZODONE 08/19/2014 14 - Other: See Comments Comments: rapid hear beat ZANTAC (RANITIDINE HCL) 05/29/2016 2 - Rash 7 - Swelling Date Reviewed: 03/13/2018 Reviewed by: Tamanna Cordova Ma - Fully Assessed Reason for Visit: Recheck [92] Cmt: Follow up, still coughing productive Primary Visit Diagnosis:Lower resp. tract infection [J22] Other Visit Diagnosis:Acute actinic otitis externa of right ear [H60.511] Order(s):azithromycin (ZITHROMAX) 250 mg tabletTake 1 tablet by mouth once daily.Disp: 1 PackageRfl: 0 ofloxacin (FLOXIN) 0.3 % otic solutionUse 5 Drops in the right ear once daily for 7 days.Disp: 5 mLRfl: 0 benzonatate (TESSALON PERLE) 100 mg capsuleTake 1 capsule by mouth at bedtime as needed.Disp: 6 capsuleRfl: 0 Prescriptions as of 03/13/2018 Sig: AZITHROMYCIN 250 MG TABLET Take 1 tablet by mouth once d* OFLOXACIN 0.3 % EAR DROPS Use 5 Drops in the right ear * BENZONATATE 100 MG CAPSULE Take 1 capsule by mouth at be* CEPHALEXIN 500 MG CAPSULE Take 1 capsule by mouth twice* ASPIRIN 81 MG CHEWABLE TABLET Take 1 tablet by mouth once d* METOPROLOL SUCCINATE ER 50 MG* Take 1 tablet by mouth once d* ONE-A-DAY 50 PLUS ORAL Take by mouth. VITAMIN D-3 ORAL Take 1,000 mg by mouth five t* [id number]-HWLY ORAL Take by mouth. TYLENOL ORAL Take 1 tablet by mouth as nee* Problem List As Of Date 03/13/2018 Noted Resolved PERSISTENT INSOMNIA [G47.00] INVALID FOR* More... Moses's esophagus [K22.70] INVALID FOR* More... CALCULUS OF KIDNEY [N20.0] INVALID FOR* Irritable bowel syndrome [K58.9] INVALID FOR*01/10/2016 More... Tobacco use disorder [F17.200] INVALID FOR*01/10/2016 More... Pain in joint, shoulder region [M25.519] INVALID FOR*09/25/2015 ANXIETY GENERALIZED [F41.1] INVALID FOR*01/10/2016 Umbilical hernia without mention of obstruction*INVALID FOR*09/25/2015 Carpal tunnel syndrome, left [G56.02] INVALID FOR* Carpal tunnel syndrome, right [G56.01] INVALID FOR*01/10/2016 Right shoulder strain [S46.911A] INVALID FOR*09/25/2015 Tendonitis of shoulder, right [M75.81] INVALID FOR* Rotator cuff tear [M75.100] INVALID FOR* More... Hematuria [R31.9] INVALID FOR*09/25/2015 Smoking history [Z87.891] INVALID FOR* Hypertension [I10] INVALID FOR* More... Atrial fibrillation (HCC) [I48.91] INVALID FOR* More... Panlobular emphysema (HCC) [J43.1] INVALID FOR* More... Arthritis [M19.90] INVALID FOR* More... History of DVT (deep vein thrombosis) [Z86.718] INVALID FOR* Encounter for colonoscopy due to history of cony*INVALID FOR*11/22/2015 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 [K22.7*INVALID FOR*11/22/2015 S/P cervical spinal fusion [Z98.1] INVALID FOR* Prescriptions ordered this encounter Disp Refills Start End AZITHROMYCIN 250 MG TABLET 1 Pa* 0 03/13/2018 Route: ORAL Sig: Take 1 tablet by mouth once daily. OFLOXACIN 0.3 % EAR DROPS 5 mL 0 03/13/2018 03/20/2018 Route: RIGHT EAR Sig: Use 5 Drops in the right ear once daily for 7 days. BENZONATATE 100 MG CAPSULE 6 ca* 0 03/13/2018 Route: ORAL Sig: Take 1 capsule by mouth at bedtime as needed. Encounter Status:Closed by KAYDEN ANN CNP on 03/13/18 PROGRESS Observed: 03/02/2018 Status: COMPLETED Source: [place] 11:20 AM [facility] [place] REPOSITORY HNO ID: [id number] Author: Minerva Shaver Service: (none) Author Type: Physician Type: Progress Notes Filed: 03/02/2018 6:27 PM Note Text: Reason for Visit Patient presents with: Same Day Appointment: illness since friday Elizabeth Delgado is a 72 year old female who presents here today for Above Complaints.. Health Maintenance LUNG CANCER SCREENING DTAP,TDAP,TD(1 - Tdap) PAP EVERY 3 YEARS (65-80 YEARS OLD) COLORECTAL CANCER SCREENING,SEE MODIFIER HPI 6 days ago she started with a sore throat, nasal congestion, facial pain, headache, and she got swelling in the jaw, she has been going nyquil which is helping her sleep. She did have a fever on Friday, no chest pain or sob, felt very weak and had to take off work for 3 days PE was sent to kayden who asked to continue with the lozenges. She has cough now with yellow, green colored sputum. Friday she had diarrhea but it resolved. No problem-specific Assessment AND Plan notes found for this encounter. PAST MEDICAL HISTORY Diagnosis Date - Anxiety - Atrial fibrillation (HCC) s/p ablation 07/2015 - Backache, unspecified - Carpal tunnel syndrome, bilateral - DVT (deep venous thrombosis) (HCC) remote - Esophageal reflux - History of DVT (deep vein thrombosis) 11/10/2015 - HTN (hypertension) - Irritable bowel syndrome - Left ventricular systolic dysfunction 11/08/2016 - PONV (postoperative nausea and vomiting) - S/P cervical spinal fusion - Scoliosis PAST SURGICAL HISTORY Procedure Laterality Date - CHOLECYSTECTOMY 10/2016 - COLONOSCOP W/ OR W/O BRSH SPEC 10/06/13 Colonoscopy - COLONOSCOP W/ OR W/O [facility] SPEC 11/22/2015 Colonoscopy - CONIZATION OF CERVIX, LEEP - DANDC AFTER DELIVERY - EGD W/O [facility] SPECIMEN W/BX 02/08/11 - EGD W/O OR W/BRUSH/WASH 10/06/13 EGD - EGD W/O OR W/BRUSH/WASH 11/22/2015 EGD - EGD W/O OR W/BRUSH/WASH 02/28/2016 EGD - LIGATE FALLOPIAN TUBE Tubal ligation - PAST SURGICAL HISTORY OF NECK SURGERY, anterior fusion - PAST SURGICAL HISTORY OF Face lift - PAST SURGICAL HISTORY OF back surgery - PAST SURGICAL HISTORY OF bilat foot surgey, bunionectomy - PAST SURGICAL HISTORY OF benign tumor removed from right breast - PAST SURGICAL HISTORY OF 03/2011 B/L cataract surgery with implants- Dr Jacob Aguilar at [facility] - PAST SURGICAL HISTORY OF 07/27/15 cryo ablation, cardiac - REMOVAL OF OVARY(S) 07/17/2010 Oophorectomy - left Dr. Manuel Hoover - Dr. Alessio Dahl - REPAIR UMBILICAL LUTHER,5+Y/O,REDUC 07/17/2010 Hernia repair, umbilical >5yr [facility] Dr Manuel Hoover - REVISE MEDIAN N/CARPAL TUNNEL SURG 02/14/12 Carpal tunnel decomp - right FAMILY HISTORY Problem Relation Age of Onset - Hypertension Mother - Stroke Mother - Coronary Artery Disease Father - other (UMA'S DISEASE) Brother Liver dse, cirrhosis Social History Substance Use Topics - Smoking status: Former Smoker Packs/day: 2.00 Years: 35.00 Types: Cigarettes Quit date: 11/09/2005 - Smokeless tobacco: Never Used Comment: Stopped smoking 12/2005 - Alcohol use 0.0 - 9.0 oz/week Comment: mixed drink in p.m. Past medical history, appointments, medications, allergies reviewed. Pertinent Lab/Diagnostic Studies are reviewed and discussed today Current Outpatient Prescriptions: - aspirin 81 mg chewable tablet - metoprolol succinate ER (TOPROL XL) 50 mg 24 hr tablet - MULTIVITAMIN WITH MINERALS (ONE-A-DAY 50 PLUS ORAL) - CALCIUM CARBONATE/VITAMIN D3 (VITAMIN D-3 ORAL) - [id number] ORAL - ACETAMINOPHEN (TYLENOL ORAL) Review of Systems CONSTITUTIONAL: No fevers, chills night sweats, unintended weight loss CARDIOVASCULAR: No chest pain, dyspnea, palpitations, orthopnea, PND, ankle edema. PULM: No dyspnea, unexplained cough. GI: No dysphagia/odynophagia, problematic reflux, constipation, diarrhea, changes in stool habits, hematochezia, melena. : No new urinary complaints, including dysuria, gross hematuria or pyuria. NEURO: No new balance problems, peripheral weakness/paresthesias or numbness of concern. Physical Exam BP 130/70 (BP Site: Left Arm, BP Position: Sitting, BP Cuff Size: Regular Adult) Pulse (!) 47 Temp (!) 35.8 ?C (96.4 ?F) Resp 12 Ht 152.4 cm (5') Wt 60.3 kg (133 lb) SpO2 97% BMI 25.97 kg/m? General appearance: Well appearing, alert, in no acute distress, well nourished. Skin: Skin color, texture, turgor normal, no suspicious rashes or lesions Head: Normocephalic, no masses, lesions, tenderness or abnormalities Eyes: Anicteric sclera. Pupils are equally round and reactive to light. Extraocular movements are intact. Lungs: Lungs clear to auscultation. No wheezing, rhonchi, rales Heart: RRR without murmur, gallop, or rubs. Extremities: No deformities, edema, skin discoloration, clubbing or cyanosis. Good capillary refill. ASSESSMENT/PLAN: 1. Sinusitis, unspecified chronicity, unspecified location - ICD9: 473.9, ICD10: J32.9 Went over the side effect profile for the drug with the patient, mentioned every one of it , discussed appropriate concerns , alternatives and benefits of the drug, To ER for worsening symptoms, mental status changes, SOB, or side effects of meds that are severe especially allergic reactions causing air way compromise. Probiotics with abx - CEPHALEXIN 500 MG CAPSULE MINERVA SHAVER MD CNOV Observed: 03/02/2018 Status: COMPLETED Source: [place] 11:00 AM [facility] REPOSITORY Office Visit (INTMWS) LEIZABETH DELGADO ([id number]) 1945 F MISSAEL Date Time Provider Department 03/02/18 11:00 AM MINERVA SHAVER During your visit today, we recorded the following information about you: Temperature Pulse Respiration Blood pressure 96.4 degrees 47/minute 12/minute 130/70 Weight Height 60.3 kg 1.524 m MINERVA SHAVER MD 03/02/2018 6:27 PM Signed Reason for Visit Patient presents with: Same Day Appointment: illness since friday Elziabeth Delgado is a 72 year old female who presents here today for Above Complaints.. Health Maintenance LUNG CANCER SCREENING DTAP,TDAP,TD(1 - Tdap) PAP EVERY 3 YEARS (65-80 YEARS OLD) COLORECTAL CANCER SCREENING,SEE MODIFIER HPI 6 days ago she started with a sore throat, nasal congestion, facial pain, headache, and she got swelling in the jaw, she has been going nyquil which is helping her sleep. She did have a fever on Friday, no chest pain or sob, felt very weak and had to take off work for 3 days PE was sent to [facility] who asked to continue with the lozenges. She has cough now with yellow, green colored sputum. Friday she had diarrhea but it resolved. No problem-specific Assessment AND Plan notes found for this encounter. PAST MEDICAL HISTORY Diagnosis Date - Anxiety - Atrial fibrillation (HCC) s/p ablation 07/2015 - Backache, unspecified - Carpal tunnel syndrome, bilateral - DVT (deep venous thrombosis) (HCC) remote - Esophageal reflux - History of DVT (deep vein thrombosis) 11/10/2015 - HTN (hypertension) - Irritable bowel syndrome - Left ventricular systolic dysfunction 11/08/2016 - PONV (postoperative nausea and vomiting) - S/P cervical spinal fusion - Scoliosis PAST SURGICAL HISTORY Procedure Laterality Date - CHOLECYSTECTOMY 10/2016 - COLONOSCOP W/ OR W/O BRSH SPEC 10/06/13 Colonoscopy - COLONOSCOP W/ OR W/O BRSH SPEC 11/22/2015 Colonoscopy - CONIZATION OF CERVIX, LEEP - DANDC AFTER DELIVERY - EGD W/O [facility] SPECIMEN W/BX 02/08/11 - EGD W/O OR W/BRUSH/WASH 10/06/13 EGD - EGD W/O OR W/BRUSH/WASH 11/22/2015 EGD - EGD W/O OR W/BRUSH/WASH 02/28/2016 EGD - LIGATE FALLOPIAN TUBE Tubal ligation - PAST SURGICAL HISTORY OF NECK SURGERY, anterior fusion - PAST SURGICAL HISTORY OF Face lift - PAST SURGICAL HISTORY OF back surgery - PAST SURGICAL HISTORY OF bilat foot surgey, bunionectomy - PAST SURGICAL HISTORY OF benign tumor removed from right breast - PAST SURGICAL HISTORY OF 03/2011 B/L cataract surgery with implants- Dr Jacob Aguilar at [facility] - PAST SURGICAL HISTORY OF 07/27/15 cryo ablation, cardiac - REMOVAL OF OVARY(S) 07/17/2010 Oophorectomy - left Dr. Manuel Hoover - Dr. Alessio Dahl - REPAIR UMBILICAL LUTHER,5+Y/O,REDUC 07/17/2010 Hernia repair, umbilical >5yr [facility] Dr Manuel Hoover - REVISE MEDIAN N/CARPAL TUNNEL SURG 02/14/12 Carpal tunnel decomp - right FAMILY HISTORY Problem Relation Age of Onset - Hypertension Mother - Stroke Mother - Coronary Artery Disease Father - other (UMA'S DISEASE) Brother Liver dse, cirrhosis Social History Substance Use Topics - Smoking status: Former Smoker Packs/day: 2.00 Years: 35.00 Types: Cigarettes Quit date: 11/09/2005 - Smokeless tobacco: Never Used Comment: Stopped smoking 12/2005 - Alcohol use 0.0 - 9.0 oz/week Comment: mixed drink in p.m. Past medical history, appointments, medications, allergies reviewed. Pertinent Lab/Diagnostic Studies are reviewed and discussed today Current Outpatient Prescriptions: - aspirin 81 mg chewable tablet - metoprolol succinate ER (TOPROL XL) 50 mg 24 hr tablet - MULTIVITAMIN WITH MINERALS (ONE-A-DAY 50 PLUS ORAL) - CALCIUM CARBONATE/VITAMIN D3 (VITAMIN D-3 ORAL) - [id number] ORAL - ACETAMINOPHEN (TYLENOL ORAL) Review of Systems CONSTITUTIONAL: No fevers, chills night sweats, unintended weight loss CARDIOVASCULAR: No chest pain, dyspnea, palpitations, orthopnea, PND, ankle edema. PULM: No dyspnea, unexplained cough. GI: No dysphagia/odynophagia, problematic reflux, constipation, diarrhea, changes in stool habits, hematochezia, melena. : No new urinary complaints, including dysuria, gross hematuria or pyuria. NEURO: No new balance problems, peripheral weakness/paresthesias or numbness of concern. Physical Exam BP 130/70 (BP Site: Left Arm, BP Position: Sitting, BP Cuff Size: Regular Adult) Pulse (!) 47 Temp (!) 35.8 ?C (96.4 ?F) Resp 12 Ht 152.4 cm (5') Wt 60.3 kg (133 lb) SpO2 97% BMI 25.97 kg/m? General appearance: Well appearing, alert, in no acute distress, well nourished. Skin: Skin color, texture, turgor normal, no suspicious rashes or lesions Head: Normocephalic, no masses, lesions, tenderness or abnormalities Eyes: Anicteric sclera. Pupils are equally round and reactive to light. Extraocular movements are intact. Lungs: Lungs clear to auscultation. No wheezing, rhonchi, rales Heart: RRR without murmur, gallop, or rubs. Extremities: No deformities, edema, skin discoloration, clubbing or cyanosis. Good capillary refill. ASSESSMENT/PLAN: 1. Sinusitis, unspecified chronicity, unspecified location - ICD9: 473.9, ICD10: J32.9 Went over the side effect profile for the drug with the patient, mentioned every one of it , discussed appropriate concerns , alternatives and benefits of the drug, To ER for worsening symptoms, mental status changes, SOB, or side effects of meds that are severe especially allergic reactions causing air way compromise. Probiotics with abx - CEPHALEXIN 500 MG CAPSULE MINERVA SHAVER MD Referring Provider: MINERVA SHAVER [[id number]] Allergies As of Date: 03/02/2018 Noted Allergy Reaction CARDIZEM (DILTIAZEM HCL) 01/18/2015 7 - Swelling CODEINE 01/21/2006 11 - Vomiting Comments: Ringing in Ears. ENTEX (PHENYLEPHRINE-GUAIFENESIN) 03/06/2007 2 - Rash ETODOLAC 07/06/2012 14 - Other: See Comments Comments: Heart palpitations MELOXICAM 05/25/2012 14 - Other: See Comments Comments: Heart palpitations NAPROXEN 01/29/2011 7 - Swelling Comments: Possible allergy? Pt relates to naproxen surgical tape adhesives [Other] 08/31/2008 2 - Rash TRAZODONE 08/19/2014 14 - Other: See Comments Comments: rapid hear beat ZANTAC (RANITIDINE HCL) 05/29/2016 2 - Rash 7 - Swelling Date Reviewed: 01/26/2018 Reviewed by: Felicitas Prince LPN - Fully Assessed Reason for Visit: Same Day Appointment [255] Cmt: illness since friday Primary Visit Diagnosis:Sinusitis, unspecified chronicity, unspecified location [J32.9] Other Visit Diagnosis:Bradycardia [R00.1] Order(s):cephALEXin (KEFLEX) 500 mg capsuleTake 1 capsule by mouth twice daily.Disp: 14 capsuleRfl: 0 Prescriptions as of 03/02/2018 Sig: CEPHALEXIN 500 MG CAPSULE Take 1 capsule by mouth twice* ASPIRIN 81 MG CHEWABLE TABLET Take 1 tablet by mouth once d* METOPROLOL SUCCINATE ER 50 MG* Take 1 tablet by mouth once d* ONE-A-DAY 50 PLUS ORAL Take by mouth. VITAMIN D-3 ORAL Take 1,000 mg by mouth five t* RGIAMYG-[id number]-LZHA ORAL Take by mouth. TYLENOL ORAL Take 1 tablet by mouth as nee* Problem List As Of Date 03/02/2018 Noted Resolved PERSISTENT INSOMNIA [G47.00] INVALID FOR* More... Moses's esophagus [K22.70] INVALID FOR* More... CALCULUS OF KIDNEY [N20.0] INVALID FOR* Irritable bowel syndrome [K58.9] INVALID FOR*01/10/2016 More... Tobacco use disorder [F17.200] INVALID FOR*01/10/2016 More... Pain in joint, shoulder region [M25.519] INVALID FOR*09/25/2015 ANXIETY GENERALIZED [F41.1] INVALID FOR*01/10/2016 Umbilical hernia without mention of obstruction*INVALID FOR*09/25/2015 Carpal tunnel syndrome, left [G56.02] INVALID FOR* Carpal tunnel syndrome, right [G56.01] INVALID FOR*01/10/2016 Right shoulder strain [S46.911A] INVALID FOR*09/25/2015 Tendonitis of shoulder, right [M75.81] INVALID FOR* Rotator cuff tear [M75.100] INVALID FOR* More... Hematuria [R31.9] INVALID FOR*09/25/2015 Smoking history [Z87.891] INVALID FOR* Hypertension [I10] INVALID FOR* More... Atrial fibrillation (HCC) [I48.91] INVALID FOR* More... Panlobular emphysema (HCC) [J43.1] INVALID FOR* More... Arthritis [M19.90] INVALID FOR* More... History of DVT (deep vein thrombosis) [Z86.718] INVALID FOR* Encounter for colonoscopy due to history of cony*INVALID FOR*11/22/2015 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 [K22.7*INVALID FOR*11/22/2015 S/P cervical spinal fusion [Z98.1] INVALID FOR* Prescriptions ordered this encounter Disp Refills Start End CEPHALEXIN 500 MG CAPSULE 14 c* 0 03/02/2018 Route: ORAL Sig: Take 1 capsule by mouth twice daily. Letter Text Department of Internal Medicine [address] [address] 03/02/2018 Elizabeth Delgado [facility]# [id number] [address] [place] [address] TO WHOM IT MAY CONCERN: This is to certify that Ms. Elizabeth Delgado has been under my care for illness and was unable to work from Friday, feb 2018 to 28 feb 2018. She will return to work on Friday, February,. Sincerely yours, MINERVA SHAVER MD Encounter Status:Closed by MINERVA SHAVER MD on 03/02/18 PROGRESS Observed: 01/26/2018 Status: COMPLETED Source: [place] 3:11 PM [facility] REPOSITORY HNO ID: [id number] Author: Minerva Shaver Service: (none) Author Type: Physician Type: Progress Notes Filed: 01/26/2018 5:23 PM Note Text: Medicare Yearly Visit Medical B eligibilty date age age 68 Date of last exam none in the past year. PAST MEDICAL HISTORY Diagnosis Date - Anxiety - Atrial fibrillation (HCC) s/p ablation 07/2015 - Backache, unspecified - Carpal tunnel syndrome, bilateral - DVT (deep venous thrombosis) (HCC) remote - Esophageal reflux - History of DVT (deep vein thrombosis) 11/10/2015 - HTN (hypertension) - Irritable bowel syndrome - Left ventricular systolic dysfunction 11/08/2016 - PONV (postoperative nausea and vomiting) - S/P cervical spinal fusion - Scoliosis PAST SURGICAL HISTORY Procedure Laterality Date - CHOLECYSTECTOMY 10/2016 - COLONOSCOP W/ OR W/O [facility] SPEC 10/06/13 Colonoscopy - COLONOSCOP W/ OR W/O [facility] SPEC 11/22/2015 Colonoscopy - CONIZATION OF CERVIX, LEEP - DANDC AFTER DELIVERY - EGD W/O [facility] SPECIMEN W/BX 02/08/11 - EGD W/O OR W/BRUSH/WASH 10/06/13 EGD - EGD W/O OR W/BRUSH/WASH 11/22/2015 EGD - EGD W/O OR W/BRUSH/WASH 02/28/2016 EGD - LIGATE FALLOPIAN TUBE Tubal ligation - PAST SURGICAL HISTORY OF NECK SURGERY, anterior fusion - PAST SURGICAL HISTORY OF Face lift - PAST SURGICAL HISTORY OF back surgery - PAST SURGICAL HISTORY OF bilat foot surgey, bunionectomy - PAST SURGICAL HISTORY OF benign tumor removed from right breast - PAST SURGICAL HISTORY OF 03/2011 B/L cataract surgery with implants- Dr Jacob Aguilar at [facility] - PAST SURGICAL HISTORY OF 07/27/15 cryo ablation, cardiac - REMOVAL OF OVARY(S) 07/17/2010 Oophorectomy - left Dr. Manuel Hoover - Dr. Alessio Dahl - REPAIR UMBILICAL LUTHER,5+Y/O,REDUC 07/17/2010 Hernia repair, umbilical >5yr [facility] Dr Manuel Hoover - REVISE MEDIAN N/CARPAL TUNNEL SURG 02/14/12 Carpal tunnel decomp - right Cardizem [Diltiazem Hcl]; Codeine; Entex [Phenylephrine-Guaifenesin]; Etodolac; Meloxicam; Naproxen; Surgical Tape Adhesives [Other]; Trazodone; Zantac [Ranitidine Hcl] Medications reviewed: Yes FAMILY HISTORY Problem Relation Age of Onset - Hypertension Mother - Stroke Mother - Coronary Artery Disease Father - other (UMA'S DISEASE) Brother Liver dse, cirrhosis SOCIAL HISTORY: Social History Marital status: Spouse name: Paolo Years of education: 12 Number of children: 1 Occupational History Occupation Employer Comment [employer] Social History Main Topics Smoking status: Former Smoker Packs/day: 2.00 Years: 35.00 Types: Cigarettes Quit date: 11/09/2005 Smokeless tobacco: Never Used Comment: Stopped smoking 12/2005 Alcohol use: Yes 0.0 - 9.0 oz/week Mixed Drinks: 0 - 2 per week Comment: mixed drink in p.m. 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 When she walks she gets different terrain..... List of current specialists seen: eye: Dr Saritha Fuller is GI End of Live Planning discussed including patients advanced directive wishes: No, discussed that she should work on. I am willing to follow Elizabeth's advanced directives. Full code Depression screen She in the past two weeks denies having felt down, depressed, hopeless or with little interest or pleasure in doing things. Functional Ability/Safety Screen 1. Was the patient's timed Up and Go test unsteady or longer than 30 seconds? No 2. Does the patient need help with the phone, transportation, shopping,preparing meals, housework, laundry, medications or managing money? No 3. Does your home have rugs in the hallway, lack of grab bars in the bathroom, lack of handrails on the stairs or have poor lighting?yes discussed the hazard. Hearing Evaluation: normal PHYSICAL EXAM BP 122/66 (BP Site: Right Arm, BP Position: Sitting, BP Cuff Size: Regular Adult) Pulse (!) 48 Resp 12 Ht 152.4 cm (5') Wt 61.7 kg (136 lb) SpO2 97% BMI 26.56 kg/m? Alert and oriented X 3: YES Body mass index is 26.56 kg/m?. ASSESSMENT/PLAN: 72 year old female The following prevention plan was discussed during the office visit and provided to the patient: - Lipid panel MINERVA SHAVER MD Reason for Visit Patient presents with: Established Patient: medicare wellness visit-labs and sleep Elizabeth Delgado is a 72 year old female who presents here today for Above Complaints.. Health Maintenance BP CONTROLLED (<130/80) DTAP,TDAP,TD(1 - Tdap) COLORECTAL CANCER SCREENING,SEE MODIFIER HPI 2015- egd did not show barrets she is off the priolosec and she does not have much of reflux either. 1. Gastric antrum, biopsy (A) - Reactive gastropathy and focal intestinal metaplasia, negative for dysplasia. - See comment. 2. Esophagus at 38 cm, biopsy (B) - Chronically inflamed gastric cardia/oxyntic mucosa with reactive epithelial changes, negative for intestinal metaplasia and dysplasia. - Hyperplastic squamous epithelium with rare eosinophils suggestive of gastroesophageal reflux. Her lipids were normal in April Vit d was normal actually higher side of normal in October so stopped vit b12 afib ...which resolved only metoprolol on her drug list. The only medication she takes is a couple a day No problem-specific Assessment AND Plan notes found for this encounter. PAST MEDICAL HISTORY Diagnosis Date - Anxiety - Atrial fibrillation (HCC) s/p ablation 07/2015 - Backache, unspecified - Carpal tunnel syndrome, bilateral - DVT (deep venous thrombosis) (HCC) remote - Esophageal reflux - History of DVT (deep vein thrombosis) 11/10/2015 - HTN (hypertension) - Irritable bowel syndrome - Left ventricular systolic dysfunction 11/08/2016 - PONV (postoperative nausea and vomiting) - S/P cervical spinal fusion - Scoliosis PAST SURGICAL HISTORY Procedure Laterality Date - CHOLECYSTECTOMY 10/2016 - COLONOSCOP W/ OR W/O [facility] SPEC 10/06/13 Colonoscopy - COLONOSCOP W/ OR W/O [facility] SPEC 11/22/2015 Colonoscopy - CONIZATION OF CERVIX, LEEP - DANDC AFTER DELIVERY - EGD W/O [facility] SPECIMEN W/BX 02/08/11 - EGD W/O OR W/BRUSH/WASH 10/06/13 EGD - EGD W/O OR W/BRUSH/WASH 11/22/2015 EGD - EGD W/O OR W/BRUSH/WASH 02/28/2016 EGD - LIGATE FALLOPIAN TUBE Tubal ligation - PAST SURGICAL HISTORY OF NECK SURGERY, anterior fusion - PAST SURGICAL HISTORY OF Face lift - PAST SURGICAL HISTORY OF back surgery - PAST SURGICAL HISTORY OF bilat foot surgey, bunionectomy - PAST SURGICAL HISTORY OF benign tumor removed from right breast - PAST SURGICAL HISTORY OF 03/2011 B/L cataract surgery with implants- Dr Jacob Aguilar at [facility] - PAST SURGICAL HISTORY OF 07/27/15 cryo ablation, cardiac - REMOVAL OF OVARY(S) 07/17/2010 Oophorectomy - left Dr. Manuel Hoover - Dr. Alessio Dahl - REPAIR UMBILICAL LUTHER,5+Y/O,REDUC 07/17/2010 Hernia repair, umbilical >5yr [facility] Dr Manuel Hoover - REVISE MEDIAN N/CARPAL TUNNEL SURG 02/14/12 Carpal tunnel decomp - right FAMILY HISTORY Problem Relation Age of Onset - Hypertension Mother - Stroke Mother - Coronary Artery Disease Father - other (UMA'S DISEASE) Brother Liver dse, cirrhosis Social History Substance Use Topics - Smoking status: Former Smoker Packs/day: 2.00 Years: 35.00 Types: Cigarettes Quit date: 11/09/2005 - Smokeless tobacco: Never Used Comment: Stopped smoking 12/2005 - Alcohol use 0.0 - 9.0 oz/week Comment: mixed drink in p.m. Past medical history, appointments, medications, allergies reviewed. Pertinent Lab/Diagnostic Studies are reviewed and discussed today Current Outpatient Prescriptions: - metoprolol succinate ER (TOPROL XL) 50 mg 24 hr tablet - MULTIVITAMIN WITH MINERALS (ONE-A-DAY 50 PLUS ORAL) - CALCIUM CARBONATE/VITAMIN D3 (VITAMIN D-3 ORAL) - [id number] ORAL - ACETAMINOPHEN (TYLENOL ORAL) - aspirin 81 mg chewable tablet Review of Systems CONSTITUTIONAL: No fevers, chills night sweats, unintended weight loss CARDIOVASCULAR: No chest pain, dyspnea, palpitations, orthopnea, PND, ankle edema. PULM: No dyspnea, unexplained cough. GI: No dysphagia/odynophagia, problematic reflux, constipation, diarrhea, changes in stool habits, hematochezia, melena. : No new urinary complaints, including dysuria, gross hematuria or pyuria. NEURO: No new balance problems, peripheral weakness/paresthesias or numbness of concern. Physical Exam BP 122/66 (BP Site: Right Arm, BP Position: Sitting, BP Cuff Size: Regular Adult) Pulse (!) 48 Resp 12 Ht 152.4 cm (5') Wt 61.7 kg (136 lb) SpO2 97% BMI 26.56 kg/m? General appearance: Well appearing, alert, in no acute distress, well nourished. Skin: Skin color, texture, turgor normal, no suspicious rashes or lesions Head: Normocephalic, no masses, lesions, tenderness or abnormalities Eyes: Anicteric sclera. Pupils are equally round and reactive to light. Extraocular movements are intact. Lungs: Lungs clear to auscultation. No wheezing, rhonchi, rales Heart: RRR without murmur, gallop, or rubs. Extremities: No deformities, edema, skin discoloration, clubbing or cyanosis. Good capillary refill. ASSESSMENT/PLAN: 1. Medicare annual wellness visit, subsequent - ICD9: V70.0, ICD10: Z00.00 (primary diagnosis) - Encouraged monthly Breast Self Exam - Follow up for annual exam in one year. 2. 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 Chronic atrial fibrillation (HCC) - ICD9: 427.31, ICD10: I48.2 Currently this has resolved 4. Essential hypertension - ICD9: 401.9, ICD10: I10 - good control - Recommended regular aerobic exercise. - Recommend home blood pressure monitoring, to bring results in on next visit - Goal of BP <130/80 MINERVA SHAVER MD CNOV Observed: 01/26/2018 Status: COMPLETED Source: [place] 3:00 PM [facility] REPOSITORY Office Visit (INTMWS) ELIZABETH DELGADO ([id number]) 1945 F MIS[place]EL Date Time Provider Department 01/26/18 3:00 PM MINERVA SHAVER INTMWS During your visit today, we recorded the following information about you: Pulse Respiration Blood pressure Weight 48/minute 12/minute 122/66 61.7 kg Height 1.524 m MINERVA SHAVER MD 01/26/2018 5:23 PM Signed Medicare Yearly Visit Medical B eligibilty date age age 68 Date of last exam none in the past year. PAST MEDICAL HISTORY Diagnosis Date - Anxiety - Atrial fibrillation (HCC) s/p ablation 07/2015 - Backache, unspecified - Carpal tunnel syndrome, bilateral - DVT (deep venous thrombosis) (HCC) remote - Esophageal reflux - History of DVT (deep vein thrombosis) 11/10/2015 - HTN (hypertension) - Irritable bowel syndrome - Left ventricular systolic dysfunction 11/08/2016 - PONV (postoperative nausea and vomiting) - S/P cervical spinal fusion - Scoliosis PAST SURGICAL HISTORY Procedure Laterality Date - CHOLECYSTECTOMY 10/2016 - COLONOSCOP W/ OR W/O BRSH SPEC 10/06/13 Colonoscopy - COLONOSCOP W/ OR W/O BRS SPEC 11/22/2015 Colonoscopy - CONIZATION OF CERVIX, LEEP - DANDC AFTER DELIVERY - EGD W/O BRSH SPECIMEN W/BX 02/08/11 - EGD W/O OR W/BRUSH/WASH 10/06/13 EGD - EGD W/O OR W/BRUSH/WASH 11/22/2015 EGD - EGD W/O OR W/BRUSH/WASH 02/28/2016 EGD - LIGATE FALLOPIAN TUBE Tubal ligation - PAST SURGICAL HISTORY OF NECK SURGERY, anterior fusion - PAST SURGICAL HISTORY OF Face lift - PAST SURGICAL HISTORY OF back surgery - PAST SURGICAL HISTORY OF bilat foot surgey, bunionectomy - PAST SURGICAL HISTORY OF benign tumor removed from right breast - PAST SURGICAL HISTORY OF 03/2011 B/L cataract surgery with implants- Dr Jacob Aguilar at [facility] - PAST SURGICAL HISTORY OF 07/27/15 cryo ablation, cardiac - REMOVAL OF OVARY(S) 07/17/2010 Oophorectomy - left Dr. Manuel Hoover - Dr. Alessio Dahl - REPAIR UMBILICAL LUTHER,5+Y/O,REDUC 07/17/2010 Hernia repair, umbilical >5yr [facility] Dr Manuel Hoover - REVISE MEDIAN N/CARPAL TUNNEL SURG 02/14/12 Carpal tunnel decomp - right Cardizem [Diltiazem Hcl]; Codeine; Entex [Phenylephrine-Guaifenesin]; Etodolac; Meloxicam; Naproxen; Surgical Tape Adhesives [Other]; Trazodone; Zantac [Ranitidine Hcl] Medications reviewed: Yes FAMILY HISTORY Problem Relation Age of Onset - Hypertension Mother - Stroke Mother - Coronary Artery Disease Father - other (UMA'S DISEASE) Brother Liver dse, cirrhosis SOCIAL HISTORY: Social History Marital status: Spouse name: Paolo Years of education: 12 Number of children: 1 Occupational History Occupation Employer Comment [employer] Social History Main Topics Smoking status: Former Smoker Packs/day: 2.00 Years: 35.00 Types: Cigarettes Quit date: 11/09/2005 Smokeless tobacco: Never Used Comment: Stopped smoking 12/2005 Alcohol use: Yes 0.0 - 9.0 oz/week Mixed Drinks: 0 - 2 per week Comment: mixed drink in p.m. 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 When she walks she gets different terrain..... List of current specialists seen: eye: Dr Saritha Fuller is GI End of Live Planning discussed including patients advanced directive wishes: No, discussed that she should work on. I am willing to follow Elizabeth's advanced directives. Full code Depression screen She in the past two weeks denies having felt down, depressed, hopeless or with little interest or pleasure in doing things. Functional Ability/Safety Screen 1. Was the patient's timed Up and Go test unsteady or longer than 30 seconds? No 2. Does the patient need help with the phone, transportation, shopping,preparing meals, housework, laundry, medications or managing money? No 3. Does your home have rugs in the hallway, lack of grab bars in the bathroom, lack of handrails on the stairs or have poor lighting?yes discussed the hazard. Hearing Evaluation: normal PHYSICAL EXAM BP 122/66 (BP Site: Right Arm, BP Position: Sitting, BP Cuff Size: Regular Adult) Pulse (!) 48 Resp 12 Ht 152.4 cm (5') Wt 61.7 kg (136 lb) SpO2 97% BMI 26.56 kg/m? Alert and oriented X 3: YES Body mass index is 26.56 kg/m?. ASSESSMENT/PLAN: 72 year old female The following prevention plan was discussed during the office visit and provided to the patient: - Lipid panel MINERVA SHAVER MD Reason for Visit Patient presents with: Established Patient: medicare wellness visit-labs and sleep Elizabeth Delgado is a 72 year old female who presents here today for Above Complaints.. Health Maintenance BP CONTROLLED (<130/80) DTAP,TDAP,TD(1 - Tdap) COLORECTAL CANCER SCREENING,SEE MODIFIER HPI 2015- egd did not show barrets she is off the priolosec and she does not have much of reflux either. 1. Gastric antrum, biopsy (A) - Reactive gastropathy and focal intestinal metaplasia, negative for dysplasia. - See comment. 2. Esophagus at 38 cm, biopsy (B) - Chronically inflamed gastric cardia/oxyntic mucosa with reactive epithelial changes, negative for intestinal metaplasia and dysplasia. - Hyperplastic squamous epithelium with rare eosinophils suggestive of gastroesophageal reflux. Her lipids were normal in April Vit d was normal actually higher side of normal in October so stopped vit b12 afib ...which resolved only metoprolol on her drug list. The only medication she takes is a couple a day No problem-specific Assessment AND Plan notes found for this encounter. PAST MEDICAL HISTORY Diagnosis Date - Anxiety - Atrial fibrillation (HCC) s/p ablation 07/2015 - Backache, unspecified - Carpal tunnel syndrome, bilateral - DVT (deep venous thrombosis) (HCC) remote - Esophageal reflux - History of DVT (deep vein thrombosis) 11/10/2015 - HTN (hypertension) - Irritable bowel syndrome - Left ventricular systolic dysfunction 11/08/2016 - PONV (postoperative nausea and vomiting) - S/P cervical spinal fusion - Scoliosis PAST SURGICAL HISTORY Procedure Laterality Date - CHOLECYSTECTOMY 10/2016 - COLONOSCOP W/ OR W/O [facility] SPEC 10/06/13 Colonoscopy - COLONOSCOP W/ OR W/O [facility] SPEC 11/22/2015 Colonoscopy - CONIZATION OF CERVIX, LEEP - DANDC AFTER DELIVERY - EGD W/O [facility] SPECIMEN W/BX 02/08/11 - EGD W/O OR W/BRUSH/WASH 10/06/13 EGD - EGD W/O OR W/BRUSH/WASH 11/22/2015 EGD - EGD W/O OR W/BRUSH/WASH 02/28/2016 EGD - LIGATE FALLOPIAN TUBE Tubal ligation - PAST SURGICAL HISTORY OF NECK SURGERY, anterior fusion - PAST SURGICAL HISTORY OF Face lift - PAST SURGICAL HISTORY OF back surgery - PAST SURGICAL HISTORY OF bilat foot surgey, bunionectomy - PAST SURGICAL HISTORY OF benign tumor removed from right breast - PAST SURGICAL HISTORY OF 03/2011 B/L cataract surgery with implants- Dr Jacob Aguilar at [facility] - PAST SURGICAL HISTORY OF 07/27/15 cryo ablation, cardiac - REMOVAL OF OVARY(S) 07/17/2010 Oophorectomy - left Dr. Manuel Hoover - Dr. Alessio Dahl - REPAIR UMBILICAL LUTHER,5+Y/O,REDUC 07/17/2010 Hernia repair, umbilical >5yr [facility] Dr Manuel Hoover - REVISE MEDIAN N/CARPAL TUNNEL SURG 02/14/12 Carpal tunnel decomp - right FAMILY HISTORY Problem Relation Age of Onset - Hypertension Mother - Stroke Mother - Coronary Artery Disease Father - other (UMA'S DISEASE) Brother Liver dse, cirrhosis Social History Substance Use Topics - Smoking status: Former Smoker Packs/day: 2.00 Years: 35.00 Types: Cigarettes Quit date: 11/09/2005 - Smokeless tobacco: Never Used Comment: Stopped smoking 12/2005 - Alcohol use 0.0 - 9.0 oz/week Comment: mixed drink in p.m. Past medical history, appointments, medications, allergies reviewed. Pertinent Lab/Diagnostic Studies are reviewed and discussed today Current Outpatient Prescriptions: - metoprolol succinate ER (TOPROL XL) 50 mg 24 hr tablet - MULTIVITAMIN WITH MINERALS (ONE-A-DAY 50 PLUS ORAL) - CALCIUM CARBONATE/VITAMIN D3 (VITAMIN D-3 ORAL) - [id number] ORAL - ACETAMINOPHEN (TYLENOL ORAL) - aspirin 81 mg chewable tablet Review of Systems CONSTITUTIONAL: No fevers, chills night sweats, unintended weight loss CARDIOVASCULAR: No chest pain, dyspnea, palpitations, orthopnea, PND, ankle edema. PULM: No dyspnea, unexplained cough. GI: No dysphagia/odynophagia, problematic reflux, constipation, diarrhea, changes in stool habits, hematochezia, melena. : No new urinary complaints, including dysuria, gross hematuria or pyuria. NEURO: No new balance problems, peripheral weakness/paresthesias or numbness of concern. Physical Exam BP 122/66 (BP Site: Right Arm, BP Position: Sitting, BP Cuff Size: Regular Adult) Pulse (!) 48 Resp 12 Ht 152.4 cm (5') Wt 61.7 kg (136 lb) SpO2 97% BMI 26.56 kg/m? General appearance: Well appearing, alert, in no acute distress, well nourished. Skin: Skin color, texture, turgor normal, no suspicious rashes or lesions Head: Normocephalic, no masses, lesions, tenderness or abnormalities Eyes: Anicteric sclera. Pupils are equally round and reactive to light. Extraocular movements are intact. Lungs: Lungs clear to auscultation. No wheezing, rhonchi, rales Heart: RRR without murmur, gallop, or rubs. Extremities: No deformities, edema, skin discoloration, clubbing or cyanosis. Good capillary refill. ASSESSMENT/PLAN: 1. Medicare annual wellness visit, subsequent - ICD9: V70.0, ICD10: Z00.00 (primary diagnosis) - Encouraged monthly Breast Self Exam - Follow up for annual exam in one year. 2. 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 Chronic atrial fibrillation (HCC) - ICD9: 427.31, ICD10: I48.2 Currently this has resolved 4. Essential hypertension - ICD9: 401.9, ICD10: I10 - good control - Recommended regular aerobic exercise. - Recommend home blood pressure monitoring, to bring results in on next visit - Goal of BP <130/80 MINERVA SHAVER MD Referring Provider: MINERVA SHAVER [[id number]] Allergies As of Date: 01/26/2018 Noted Allergy Reaction CARDIZEM (DILTIAZEM HCL) 01/18/2015 7 - Swelling CODEINE 01/21/2006 11 - Vomiting Comments: Ringing in Ears. ENTEX (PHENYLEPHRINE-GUAIFENESIN) 03/06/2007 2 - Rash ETODOLAC 07/06/2012 14 - Other: See Comments Comments: Heart palpitations MELOXICAM 05/25/2012 14 - Other: See Comments Comments: Heart palpitations NAPROXEN 01/29/2011 7 - Swelling Comments: Possible allergy? Pt relates to naproxen surgical tape adhesives [Other] 08/31/2008 2 - Rash TRAZODONE 08/19/2014 14 - Other: See Comments Comments: rapid hear beat ZANTAC (RANITIDINE HCL) 05/29/2016 2 - Rash 7 - Swelling Date Reviewed: 01/26/2018 Reviewed by: Felicitas Prince LPN - Fully Assessed Reason for Visit: Established Patient [175] Cmt: medicare wellness visit- labs and sleep Primary Visit Diagnosis:Medicare annual wellness visit, subsequent [Z00.00] Other Visit Diagnoses: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 [K22.70] Chronic atrial fibrillation (HCC) [I48.2] Essential hypertension [I10] Order(s):aspirin 81 mg chewable tabletTake 1 tablet by mouth once daily.Disp: 90 tabletRfl: 3 Prescriptions as of 01/26/2018 Sig: METOPROLOL SUCCINATE ER 50 MG* Take 1 tablet by mouth once d* ONE-A-DAY 50 PLUS ORAL Take by mouth. VITAMIN D-3 ORAL Take 1,000 mg by mouth five t* [id number] ORAL Take by mouth. TYLENOL ORAL Take 1 tablet by mouth as nee* ASPIRIN 81 MG CHEWABLE TABLET Take 1 tablet by mouth once d* Problem List As Of Date 01/26/2018 Noted Resolved PERSISTENT INSOMNIA [G47.00] INVALID FOR* More... Moses's esophagus [K22.70] INVALID FOR* More... CALCULUS OF KIDNEY [N20.0] INVALID FOR* Irritable bowel syndrome [K58.9] INVALID FOR*01/10/2016 More... Tobacco use disorder [F17.200] INVALID FOR*01/10/2016 More... Pain in joint, shoulder region [M25.519] INVALID FOR*09/25/2015 ANXIETY GENERALIZED [F41.1] INVALID FOR*01/10/2016 Umbilical hernia without mention of obstruction*INVALID FOR*09/25/2015 Carpal tunnel syndrome, left [G56.02] INVALID FOR* Carpal tunnel syndrome, right [G56.01] INVALID FOR*01/10/2016 Right shoulder strain [S46.911A] INVALID FOR*09/25/2015 Tendonitis of shoulder, right [M75.81] INVALID FOR* Rotator cuff tear [M75.100] INVALID FOR* More... Hematuria [R31.9] INVALID FOR*09/25/2015 Smoking history [Z87.891] INVALID FOR* Hypertension [I10] INVALID FOR* More... Atrial fibrillation (HCC) [I48.91] INVALID FOR* More... Panlobular emphysema (HCC) [J43.1] INVALID FOR* More... Arthritis [M19.90] INVALID FOR* More... History of DVT (deep vein thrombosis) [Z86.718] INVALID FOR* Encounter for colonoscopy due to history of cony*INVALID FOR*11/22/2015 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 [K22.7*INVALID FOR*11/22/2015 S/P cervical spinal fusion [Z98.1] INVALID FOR* Prescriptions ordered this encounter Disp Refills Start End ASPIRIN 81 MG CHEWABLE TABLET 90 t* 3 01/26/2018 Class: Med Update Route: ORAL Sig: Take 1 tablet by mouth once daily. Medications Discontinued During This Encounter furosemide (LASIX) 40 mg tablet 02/07/2017 01/26/2018 Class: Med Update Sig: Uses when legs are swollen Disc: Reason for discontinue is not on file. potassium chloride (KLOR-CON 10) 10 * 0 10/29/2016 01/26/2018 Class: Historical Med Route: ORAL Sig: Take 1 tablet by mouth daily with breakfast. Disc: Reason for discontinue is not on file. sodium chloride (AYR, OCEAN) 0.65 % * 07/04/2014 01/26/2018 Class: Med Update Route: NASAL Sig: Use 2 Sprays in the nose every 2 hours. Disc: Reason for discontinue is not on file. Encounter Status:Closed by MINERVA SHAVER MD on 01/26/18 PROGRESS Observed: 01/23/2018 Status: COMPLETED Source: [place] 3:27 PM [facility] REPOSITORY [facility] ID: [id number] Author: Jahaira Smith LPN Service: (none) Author Type: (none) Type: Progress Notes Filed: 01/23/2018 3:29 PM Note Text: Influenza Vaccine Documentation: ? Patient is identified by name and date of : Yes ? Patient is older than 6 months of age: Yes ? Patient denies a severe allergy to any vaccine component or to a previous dose of influenza vaccine: Yes FOR EGG ALLERGY CONCERNS, REFER TO PROVIDER. ? Denies allergy to gelatin, formaldehyde, thimerosol :Yes ? Patient is afebrile and not moderately or severely ill: Yes ? Does the patient have a history of Guillain ?Butler Syndrome (a severe paralytic illness): No ? Denies bone marrow transplant prior 6 months or solid organ transplant prior 3 months: Yes ? Denies a history of fainting after a prior injection or medical procedure? Yes If patient has fainted in the past, the CDC recommends sitting or lying down for 15 minutes after the vaccination. ? VIS sheet provided: Yes ? See Immunization Form in EpicCare for details of immunizations administered today. If patient reports dizziness, vision changes or ringing in the ears post vaccination ? please have patient sit or lie down for 15 minutes. CNNURSE Observed: 01/23/2018 Status: COMPLETED Source: [place] 3:10 PM [facility] REPOSITORY Nurse Visit (FAMPWS) ELIZABETH DELGADO ([id number]) 1945 [facility] Date Time Provider Department 01/23/18 3:10 PM [place] [facility] During your visit today, we recorded the following information about you: Temperature 98.7 degrees Jahaira Smith LPN 01/23/2018 3:29 PM Signed Influenza Vaccine Documentation: ? Patient is identified by name and date of : Yes ? Patient is older than 6 months of age: Yes ? Patient denies a severe allergy to any vaccine component or to a previous dose of influenza vaccine: Yes FOR EGG ALLERGY CONCERNS, REFER TO PROVIDER. ? Denies allergy to gelatin, formaldehyde, thimerosol :Yes ? Patient is afebrile and not moderately or severely ill: Yes ? Does the patient have a history of Guillain ?Butler Syndrome (a severe paralytic illness): No ? Denies bone marrow transplant prior 6 months or solid organ transplant prior 3 months: Yes ? Denies a history of fainting after a prior injection or medical procedure? Yes If patient has fainted in the past, the CDC recommends sitting or lying down for 15 minutes after the vaccination. ? VIS sheet provided: Yes ? See Immunization Form in [facility] for details of immunizations administered today. If patient reports dizziness, vision changes or ringing in the ears post vaccination ? please have patient sit or lie down for 15 minutes. Referring Provider: SELF [[id number]] Allergies As of Date: 01/23/2018 Noted Allergy Reaction CARDIZEM (DILTIAZEM HCL) 01/18/2015 7 - Swelling CODEINE 01/21/2006 11 - Vomiting Comments: Ringing in Ears. ENTEX (PHENYLEPHRINE-GUAIFENESIN) 03/06/2007 2 - Rash ETODOLAC 07/06/2012 14 - Other: See Comments Comments: Heart palpitations MELOXICAM 05/25/2012 14 - Other: See Comments Comments: Heart palpitations NAPROXEN 01/29/2011 7 - Swelling Comments: Possible allergy? Pt relates to naproxen surgical tape adhesives [Other] 08/31/2008 2 - Rash TRAZODONE 08/19/2014 14 - Other: See Comments Comments: rapid hear beat ZANTAC (RANITIDINE HCL) 05/29/2016 2 - Rash 7 - Swelling Date Reviewed: 11/19/2017 Reviewed by: Felicitas Prince LPN - Fully Assessed Reason for Visit: Imm/Inj [58] Primary Visit Diagnosis:Need for vaccination [Z23] Order(s):ADMIN OF INFLUENZA VACCINE [[id number]] Order #: [id number]: 1 INFLUENZA SEASONAL HIGH DOSE AGE 65+ [[id number]] Order #: [id number] Prescriptions as of 01/23/2018 Sig: METOPROLOL SUCCINATE ER 50 MG* Take 1 tablet by mouth once d* FUROSEMIDE 40 MG TABLET Uses when legs are swollen POTASSIUM CHLORIDE ER 10 MEQ * Take 1 tablet by mouth daily * SODIUM CHLORIDE 0.65 % NASAL * Use 2 Sprays in the nose ever* ONE-A-DAY 50 PLUS ORAL Take by mouth. VITAMIN D-3 ORAL Take 1,000 mg by mouth five t* [id number] ORAL Take by mouth. TYLENOL ORAL Take 1 tablet by mouth as nee* Problem List As Of Date 01/23/2018 Noted Resolved PERSISTENT INSOMNIA [G47.00] INVALID FOR* More... MOSES'S ESOPHAGUS [K22.70] INVALID FOR* CALCULUS OF KIDNEY [N20.0] INVALID FOR* Irritable bowel syndrome [K58.9] INVALID FOR*01/10/2016 More... Tobacco use disorder [F17.200] INVALID FOR*01/10/2016 More... Pain in joint, shoulder region [M25.519] INVALID FOR*09/25/2015 ANXIETY GENERALIZED [F41.1] INVALID FOR*01/10/2016 Umbilical hernia without mention of obstruction*INVALID FOR*09/25/2015 Carpal tunnel syndrome, left [G56.02] INVALID FOR* Carpal tunnel syndrome, right [G56.01] INVALID FOR*01/10/2016 Right shoulder strain [S46.911A] INVALID FOR*09/25/2015 Tendonitis of shoulder, right [M75.81] INVALID FOR* Rotator cuff tear [M75.100] INVALID FOR* More... Hematuria [R31.9] INVALID FOR*09/25/2015 Smoking history [Z87.891] INVALID FOR* Hypertension [I10] INVALID FOR* More... Atrial fibrillation (HCC) [I48.91] INVALID FOR* More... Panlobular emphysema (HCC) [J43.1] INVALID FOR* More... Arthritis [M19.90] INVALID FOR* More... History of DVT (deep vein thrombosis) [Z86.718] INVALID FOR* Encounter for colonoscopy due to history of cony*INVALID FOR*11/22/2015 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 [K22.7*INVALID FOR*11/22/2015 S/P cervical spinal fusion [Z98.1] INVALID FOR* Encounter Status:Closed by JAHAIRA SMITH LPN on 01/23/18 CNCO Observed: 12/12/2017 Status: COMPLETED Source: [place] 8:17 AM [facility] [place] REPOSITORY [facility] ID: [id number] Author: Mammography Coordinator Service: (none) Author Type: Physician Type: Letter Filed: 12/15/2017 11:32 PM Note Text: December 12, 2017 PID: [id number] Elizabeth Delgado [address] [place] [address] Dear Ms. Delgado, We are pleased to inform you that the results of your recent breast imaging exam on 12/11/2017 are normal. Your mammogram demonstrates that you have dense breast tissue, which could hide abnormalities. Dense breast tissue, in and of itself, is a relatively common condition. Therefore, this information is not provided to cause undue concern; rather, it is to raise your awareness and promote discussion with your health care provider regarding the presence of dense breast tissue in addition to other risk factors. Early detection of cancer is very important. We also understand recommendations regarding breast cancer screening are controversial. Please discuss with your primary care provider which strategy is best for you and whether a mammogram is right for you. Your imaging studies and report will be kept on file at [facility] as part of your permanent medical record and are available for your continuing care. Thank you for allowing us to help in meeting your health care needs. Sincerely, Dr. Villanueva Interpreting Radiologist [facility] (Normal over 40) [facility] SCREENING Observed: 12/11/2017 Status: F Source: [place] 4:37 PM [facility] REPOSITORY * * *Final Report* * * DATE OF EXAM: Dec 11 2017 4:37PM JOSE [id number] - [facility] SCREENING / PROCEDURE REASON: Encounter for screening mammogram for malignant neoplasm of breast * * * * Physician Interpretation * * * * RESULT: #[id number] - [facility] SCREENING BILATERAL DIGITAL SCREENING MAMMOGRAM WITH CAD: 12/11/2017 HISTORY: Screening Mammogram - patient reports NO breast symptoms /priors available for comparison. RESULT: TECHNIQUE: The study was acquired using full field digital technology and interpreted from soft copy. Current study was also evaluated with a Computer Aided Detection (CAD). Comparison is made to exams dated: 12/03/2016 mammogram - [facility], 05/16/2015 mammogram - [facility], 01/15/2011 mammogram, 12/09/2012 mammogram, and 02/07/2014 mammogram - [facility]. The tissue of both breasts is heterogeneously dense. This may lower the sensitivity of mammography. The parenchymal pattern and appearance of the breasts is unchanged from the prior exams taking into account differences in positioning and technique. There are post operative findings in the right breast. No significant masses, calcifications, or other findings are seen in either breast. There has been no significant interval change. IMPRESSION: NEGATIVE Stable exam from [id number]. There is no mammographic evidence of malignancy. A 1 year screening mammogram is recommended. Heena avalos/mikael:12/12/2017 08:17:13 Poultry Barn Manager: Rosy HOANG)(Cande), [facility] letter sent: Normal over 40 Mammogram BI-RADS: 1 Negative Cyber Security Engineer: Mikael Transcribe Date/Time: Dec 11 2017 4:38P Dictated by: HEENA VILLANUEVA MD This examination was interpreted and the report reviewed and electronically signed by: HEENA VILLANUEVA MD on Dec 12 2017 8:17AM EST [id number] Observed: 12/11/2017 Status: COMPLETED Source: [place] 4:12 PM [facility] REPOSITORY [facility] ID: [id number] Author: Ericka Sanchez Service: (none) Author Type: (none) Type: Progress Notes Filed: 12/11/2017 4:13 PM Note Text: Radiology Service Progress Note PATIENT NAME: Elizabeth Delgado DATE OF SERVICE: December 11, 2017 TIME: 4:12 PM PATIENT IDENTITY VERIFICATION COMPLETED USING TWO (2) METHODS: Patient confirmed name verbally and Date of . PATIENT GENDER DATA: Female. status: : No status: NO. PATIENT RELEVANT IMPLANT DATA REVIEWED: Not Applicable RADIOLOGY DEPARTMENT: [facility] DATA: Not applicable SIGNED BY: Ericka Sanchez December 11, 2017 4:12 PM VITAMIN B12 Collected: 11/20/2017 Status: F Source: [place] 2:20 PM [facility] REPOSITORY TYPE CODE TESTS RESULT OUT OF REFERENCE UNITS RANGE LAB B12 [id number] pg/mL High Vitamin B12 1747 Performed By: #### B12 #### [facility] [address], [place] [address] XR ANKLE 3V AP/LAT/OBL Observed: 11/20/2017 Status: F Source: [facility] 10:34 AM [facility] [place] REPOSITORY * * *Final Report* * * DATE OF EXAM: Nov 20 2017 10:34AM WOX [id number] - XR ANKLE 3V AP/LAT/OBL LT / PROCEDURE REASON: Effusion, left ankle * * * * Physician Interpretation * * * * HISTORY: 72-YEAR-OLD FEMALE WITH Effusion, left ankle . pt states for the last 2 weeks left ankle keeps swelling with pain lateral side, will get red and itch. no inj TECHNIQUE: XR ANKLE 3V AP/LAT/OBL LT Laterality: LEFT Number of different views (projections): 3 COMPARISON: 01/29/2011 RESULT: Ankle mortise is maintained. No acute fracture. Focal periosteal thickening related to healed avulsion fracture of the anterior dorsal talus. Calcaneal enthesophyte insertion Achilles tendon and plantar fascia. Soft tissue swelling about the lateral malleolus. No radiographic evidence of joint effusion. IMPRESSION: NO ACUTE BONY ABNORMALITY. SOFT TISSUE SWELLING ABOUT THE LATERAL MALLEOLUS. Cyber Security Engineer: [employer] Transcribe Date/Time: Nov 20 2017 11:56A Dictated by : JAIMIE ÁLVAREZ MD This examination was interpreted and the report reviewed and electronically signed by: JAIMIE ÁLVAREZ MD on Nov 20 2017 11:59AM EST [id number] PROGRESS Observed: 11/20/2017 Status: COMPLETED Source: [place] 10:28 AM [facility] REPOSITORY HNO ID: [id number] Author: Nikki Moody (Rt) Jocelynn Stoddard Service: (none) Author Type: Billiard Player Type: Progress Notes Filed: 11/20/2017 10:34 AM Note Text: Radiology Service Progress Note PATIENT NAME: Elizabeth Delgado DATE OF SERVICE: November 20, 2017 TIME: 10:28 AM PATIENT IDENTITY VERIFICATION COMPLETED USING TWO (2) METHODS: Patient confirmed name verbally and Date of . PATIENT GENDER DATA: Female. status: : No status: NO. PATIENT RELEVANT IMPLANT DATA REVIEWED: Not Applicable RADIOLOGY DEPARTMENT: General X-ray: Exam(s) Completed: Lower Extremity X-Ray(s): Ankle, Left: PERIPHERAL IV DATA: Not applicable SIGNED BY: RT Kd November 20, 2017 10:28 AM PROGRESS Observed: 11/19/2017 Status: COMPLETED Source: [place] 2:29 PM [facility] REPOSITORY HNO ID: [id number] Author: Minerva Shaver Service: (none) Author Type: Physician Type: Progress Notes Filed: 11/19/2017 8:25 PM Note Text: Reason for Visit Patient presents with: Same Day Appointment: left lower leg swelling and redness x 2 weeks Elizabeth Delgado is a 72 year old female who presents here today for Above Complaints.. Health Maintenance DTAP,TDAP,TD(1 - Tdap) ZOSTER VACCINE (SHINGRIX)(2 of 3) MAMMOGRAM COLORECTAL CANCER SCREENING,SEE MODIFIER HPI Noticed pain and swelling in the left ankle for the past 2 weeks, right ankle is normal No recollection of any injury, twisting, falling. She has been walking her dog a lot recently around 3/4 times and sometimes her dog is pulling her. She started walking her dog 4 weeks ago. Side walks are not even. She has been walking her dog a lot recently. No problem-specific Assessment AND Plan notes found for this encounter. PAST MEDICAL HISTORY Diagnosis Date - Anxiety - Atrial fibrillation (HCC) s/p ablation 07/2015 - Backache, unspecified - Carpal tunnel syndrome, bilateral - DVT (deep venous thrombosis) (HCC) remote - Esophageal reflux - History of DVT (deep vein thrombosis) 11/10/2015 - HTN (hypertension) - Irritable bowel syndrome - Left ventricular systolic dysfunction 11/08/2016 - PONV (postoperative nausea and vomiting) - S/P cervical spinal fusion - Scoliosis PAST SURGICAL HISTORY Procedure Laterality Date - CHOLECYSTECTOMY 10/2016 - COLONOSCOP W/ OR W/O [facility] SPEC 10/06/13 Colonoscopy - COLONOSCOP W/ OR W/O [facility] SPEC 11/22/2015 Colonoscopy - CONIZATION OF CERVIX, LEEP - DANDC AFTER DELIVERY - EGD W/O [facility] SPECIMEN W/BX 02/08/11 - EGD W/O OR W/BRUSH/WASH 10/06/13 EGD - EGD W/O OR W/BRUSH/WASH 11/22/2015 EGD - EGD W/O OR W/BRUSH/WASH 02/28/2016 EGD - LIGATE FALLOPIAN TUBE Tubal ligation - PAST SURGICAL HISTORY OF NECK SURGERY, anterior fusion - PAST SURGICAL HISTORY OF Face lift - PAST SURGICAL HISTORY OF back surgery - PAST SURGICAL HISTORY OF bilat foot surgey, bunionectomy - PAST SURGICAL HISTORY OF benign tumor removed from right breast - PAST SURGICAL HISTORY OF 03/2011 B/L cataract surgery with implants- Dr Jacob Aguilar at [facility] - PAST SURGICAL HISTORY OF 07/27/15 cryo ablation, cardiac - REMOVAL OF OVARY(S) 07/17/2010 Oophorectomy - left Dr. Manuel Hoover - Dr. Alessio Dahl - REPAIR UMBILICAL LUTHER,5+Y/O,REDUC 07/17/2010 Hernia repair, umbilical >5yr [facility] Dr Manuel Hoover - REVISE MEDIAN N/CARPAL TUNNEL SURG 02/14/12 Carpal tunnel decomp - right FAMILY HISTORY Problem Relation Age of Onset - Hypertension Mother - Stroke Mother - Coronary Artery Disease Father - UMA'S DISEASE [OTHER] Brother Liver dse, cirrhosis Social History Substance Use Topics - Smoking status: Former Smoker Packs/day: 2.00 Years: 35.00 Types: Cigarettes Quit date: 11/09/2005 - Smokeless tobacco: Never Used Comment: Stopped smoking 12/2005 - Alcohol use 0.0 - 9.0 oz/week Comment: mixed drink in p.m. Past medical history, appointments, medications, allergies reviewed. Pertinent Lab/Diagnostic Studies are reviewed and discussed today Current Outpatient Prescriptions: - metoprolol succinate ER (TOPROL XL) 50 mg 24 hr tablet - furosemide (LASIX) 40 mg tablet - potassium chloride (KLOR-CON 10) 10 mEq tablet - sodium chloride (AYR, OCEAN) 0.65 % nasal spray - MULTIVITAMIN WITH MINERALS (ONE-A-DAY 50 PLUS ORAL) - CALCIUM CARBONATE/VITAMIN D3 (VITAMIN D-3 ORAL) - [id number] ORAL - ACETAMINOPHEN (TYLENOL ORAL) Review of Systems CONSTITUTIONAL: No fevers, chills night sweats, unintended weight loss CARDIOVASCULAR: No chest pain, dyspnea, palpitations, orthopnea, PND, ankle edema. PULM: No dyspnea, unexplained cough. GI: No dysphagia/odynophagia, problematic reflux, constipation, diarrhea, changes in stool habits, hematochezia, melena. : No new urinary complaints, including dysuria, gross hematuria or pyuria. NEURO: No new balance problems, peripheral weakness/paresthesias or numbness of concern. Physical Exam BP 134/64 (BP Site: Left Arm, BP Position: Sitting, BP Cuff Size: Regular Adult) Pulse 66 Resp 12 Ht 152.4 cm (5') Wt 63 kg (139 lb) SpO2 98% BMI 27.15 kg/m? General appearance: Well appearing, alert, in no acute distress, well nourished. Skin: Skin color, texture, turgor normal, no suspicious rashes or lesions Head: Normocephalic, no masses, lesions, tenderness or abnormalities Eyes: Anicteric sclera. Pupils are equally round and reactive to light. Extraocular movements are intact. Lungs: Lungs clear to auscultation. No wheezing, rhonchi, rales Heart: RRR without murmur, gallop, or rubs. Left leg: there is swelling, at the left ankle, along with tenderness and pain in the lateral aspect of the ankle. And the foot left side is tending to medially rotate. Sohan sign is positive. ASSESSMENT/PLAN: 1. Left ankle swelling - ICD9: 719.07, ICD10: M25.472 r/o DVT . Likely sprain/ fracture. She has osteopenia, which was worsening from the last time. - VARICELLA-ZOSTER GLYCOE VACC-AS01B ADJ(PF) 50 MCG/0.5 ML IM SUSP, KIT - US LEG VEIN DVT UNL VAS LAB MINERVA SHAVER MD CNOV Observed: 11/19/2017 Status: COMPLETED Source: [place] 2:00 PM [facility] REPOSITORY Office Visit (INTMWS) ELIZABETH DELGADO ([id number]) 1945 F [facility] Date Time Provider Department 11/19/17 2:00 PM MINERVA SHAVER INTMWS During your visit today, we recorded the following information about you: Pulse Respiration Blood pressure Weight 66/minute 12/minute 134/64 63 kg Height 1.524 m MINERVA SHAVER MD 11/19/2017 8:25 PM Signed Reason for Visit Patient presents with: Same Day Appointment: left lower leg swelling and redness x 2 weeks Elizabeth Delgado is a 72 year old female who presents here today for Above Complaints.. Health Maintenance DTAP,TDAP,TD(1 - Tdap) ZOSTER VACCINE (SHINGRIX)(2 of 3) MAMMOGRAM COLORECTAL CANCER SCREENING,SEE MODIFIER HPI Noticed pain and swelling in the left ankle for the past 2 weeks, right ankle is normal No recollection of any injury, twisting, falling. She has been walking her dog a lot recently around 3/4 times and sometimes her dog is pulling her. She started walking her dog 4 weeks ago. Side walks are not even. She has been walking her dog a lot recently. No problem-specific Assessment AND Plan notes found for this encounter. PAST MEDICAL HISTORY Diagnosis Date - Anxiety - Atrial fibrillation (HCC) s/p ablation 07/2015 - Backache, unspecified - Carpal tunnel syndrome, bilateral - DVT (deep venous thrombosis) (HCC) remote - Esophageal reflux - History of DVT (deep vein thrombosis) 11/10/2015 - HTN (hypertension) - Irritable bowel syndrome - Left ventricular systolic dysfunction 11/08/2016 - PONV (postoperative nausea and vomiting) - S/P cervical spinal fusion - Scoliosis PAST SURGICAL HISTORY Procedure Laterality Date - CHOLECYSTECTOMY 10/2016 - COLONOSCOP W/ OR W/O [facility] SPEC 10/06/13 Colonoscopy - COLONOSCOP W/ OR W/O [facility] SPEC 11/22/2015 Colonoscopy - CONIZATION OF CERVIX, LEEP - DANDC AFTER DELIVERY - EGD W/O [facility] SPECIMEN W/BX 02/08/11 - EGD W/O OR W/BRUSH/WASH 10/06/13 EGD - EGD W/O OR W/BRUSH/WASH 11/22/2015 EGD - EGD W/O OR W/BRUSH/WASH 02/28/2016 EGD - LIGATE FALLOPIAN TUBE Tubal ligation - PAST SURGICAL HISTORY OF NECK SURGERY, anterior fusion - PAST SURGICAL HISTORY OF Face lift - PAST SURGICAL HISTORY OF back surgery - PAST SURGICAL HISTORY OF bilat foot surgey, bunionectomy - PAST SURGICAL HISTORY OF benign tumor removed from right breast - PAST SURGICAL HISTORY OF 03/2011 B/L cataract surgery with implants- Dr Jacob Aguilar at [facility] - PAST SURGICAL HISTORY OF 07/27/15 cryo ablation, cardiac - REMOVAL OF OVARY(S) 07/17/2010 Oophorectomy - left Dr. Manuel Hoover - Dr. Alessio Dahl - REPAIR UMBILICAL LUTHER,5+Y/O,REDUC 07/17/2010 Hernia repair, umbilical >5yr [facility] Dr Manuel Hoover - REVISE MEDIAN N/CARPAL TUNNEL SURG 02/14/12 Carpal tunnel decomp - right FAMILY HISTORY Problem Relation Age of Onset - Hypertension Mother - Stroke Mother - Coronary Artery Disease Father - UMA'S DISEASE [OTHER] Brother Liver dse, cirrhosis Social History Substance Use Topics - Smoking status: Former Smoker Packs/day: 2.00 Years: 35.00 Types: Cigarettes Quit date: 11/09/2005 - Smokeless tobacco: Never Used Comment: Stopped smoking 12/2005 - Alcohol use 0.0 - 9.0 oz/week Comment: mixed drink in p.m. Past medical history, appointments, medications, allergies reviewed. Pertinent Lab/Diagnostic Studies are reviewed and discussed today Current Outpatient Prescriptions: - metoprolol succinate ER (TOPROL XL) 50 mg 24 hr tablet - furosemide (LASIX) 40 mg tablet - potassium chloride (KLOR-CON 10) 10 mEq tablet - sodium chloride (AYR, OCEAN) 0.65 % nasal spray - MULTIVITAMIN WITH MINERALS (ONE-A-DAY 50 PLUS ORAL) - CALCIUM CARBONATE/VITAMIN D3 (VITAMIN D-3 ORAL) - [id number] ORAL - ACETAMINOPHEN (TYLENOL ORAL) Review of Systems CONSTITUTIONAL: No fevers, chills night sweats, unintended weight loss CARDIOVASCULAR: No chest pain, dyspnea, palpitations, orthopnea, PND, ankle edema. PULM: No dyspnea, unexplained cough. GI: No dysphagia/odynophagia, problematic reflux, constipation, diarrhea, changes in stool habits, hematochezia, melena. : No new urinary complaints, including dysuria, gross hematuria or pyuria. NEURO: No new balance problems, peripheral weakness/paresthesias or numbness of concern. Physical Exam BP 134/64 (BP Site: Left Arm, BP Position: Sitting, BP Cuff Size: Regular Adult) Pulse 66 Resp 12 Ht 152.4 cm (5') Wt 63 kg (139 lb) SpO2 98% BMI 27.15 kg/m? General appearance: Well appearing, alert, in no acute distress, well nourished. Skin: Skin color, texture, turgor normal, no suspicious rashes or lesions Head: Normocephalic, no masses, lesions, tenderness or abnormalities Eyes: Anicteric sclera. Pupils are equally round and reactive to light. Extraocular movements are intact. Lungs: Lungs clear to auscultation. No wheezing, rhonchi, rales Heart: RRR without murmur, gallop, or rubs. Left leg: there is swelling, at the left ankle, along with tenderness and pain in the lateral aspect of the ankle. And the foot left side is tending to medially rotate. Sohan sign is positive. ASSESSMENT/PLAN: 1. Left ankle swelling - ICD9: 719.07, ICD10: M25.472 r/o DVT . Likely sprain/ fracture. She has osteopenia, which was worsening from the last time. - VARICELLA-ZOSTER GLYCOE VACC-AS01B ADJ(PF) 50 MCG/0.5 ML IM SUSP, KIT - US LEG VEIN DVT UNL VAS LAB MD MINERVA LU MD 11/20/2017 11:06 AM Signed Addended by: MINERVA SHAVER MD on: 11/20/2017 11:06 AM Modules accepted: Orders, SmartSet Referring Provider: SELF [[id number]] Allergies As of Date: 11/19/2017 Noted Allergy Reaction CARDIZEM (DILTIAZEM HCL) 01/18/2015 7 - Swelling CODEINE 01/21/2006 11 - Vomiting Comments: Ringing in Ears. ENTEX (PHENYLEPHRINE-GUAIFENESIN) 03/06/2007 2 - Rash ETODOLAC 07/06/2012 14 - Other: See Comments Comments: Heart palpitations MELOXICAM 05/25/2012 14 - Other: See Comments Comments: Heart palpitations NAPROXEN 01/29/2011 7 - Swelling Comments: Possible allergy? 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] Order(s):[] zoster vaccine, recombinant, adjuvanted, (SHINGRIX) 50 mcg/0.5 mL injectionInject 0.5 mL intramuscularly one time only for 1 dose.Disp: 0.5 mLRfl: 0 XR ANKLE GENERAL 3V AP/LAT/OBL LT [[id number]] Order #: [id number] FUTURE VITAMIN B12 BLOOD [SQB12] Order #: [id number] FUTURE US LEG VEIN DVT UNL VAS LAB [[id number]] Order #: [id number] FUTURE Prescriptions as of 11/19/2017 Sig: VARICELLA-ZOSTER GLYCOE VACC-* Inject 0.5 mL intramuscularly* METOPROLOL SUCCINATE ER 50 MG* Take 1 tablet by mouth once d* FUROSEMIDE 40 MG TABLET Uses when legs are swollen POTASSIUM CHLORIDE ER 10 MEQ * Take 1 tablet by mouth daily * SODIUM CHLORIDE 0.65 % NASAL * Use 2 Sprays in the nose ever* ONE-A-DAY 50 PLUS ORAL Take by mouth. VITAMIN D-3 ORAL Take 1,000 mg by mouth five t* [id number]-[id number]-[id number] ORAL Take by mouth. TYLENOL ORAL Take 1 tablet by mouth as nee* Problem List As Of Date 11/19/2017 Noted Resolved PERSISTENT INSOMNIA [G47.00] INVALID FOR* More... MOSES'S ESOPHAGUS [K22.70] INVALID FOR* CALCULUS OF KIDNEY [N20.0] INVALID FOR* Irritable bowel syndrome [K58.9] INVALID FOR*01/10/2016 More... Tobacco use disorder [F17.200] INVALID FOR*01/10/2016 More... Pain in joint, shoulder region [M25.519] INVALID FOR*09/25/2015 ANXIETY GENERALIZED [F41.1] INVALID FOR*01/10/2016 Umbilical hernia without mention of obstruction*INVALID FOR*09/25/2015 Carpal tunnel syndrome, left [G56.02] INVALID FOR* Carpal tunnel syndrome, right [G56.01] INVALID FOR*01/10/2016 Right shoulder strain [S46.911A] INVALID FOR*09/25/2015 Tendonitis of shoulder, right [M75.81] INVALID FOR* Rotator cuff tear [M75.100] INVALID FOR* More... Hematuria [R31.9] INVALID FOR*09/25/2015 Smoking history [Z87.891] INVALID FOR* Hypertension [I10] INVALID FOR* More... Atrial fibrillation (HCC) [I48.91] INVALID FOR* More... Panlobular emphysema (HCC) [J43.1] INVALID FOR* More... Arthritis [M19.90] INVALID FOR* More... History of DVT (deep vein thrombosis) [Z86.718] INVALID FOR* Encounter for colonoscopy due to history of cony*INVALID FOR*11/22/2015 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 [K22.7*INVALID FOR*11/22/2015 S/P cervical spinal fusion [Z98.1] INVALID FOR* Prescriptions ordered this encounter Disp Refills Start End VARICELLA-ZOSTER GLYCOE VACC-AS01B A* 0.5 * 0 11/19/2017 11/19/2017 Class: Print RX Route: INTRAMUSCULA Sig: Inject 0.5 mL intramuscularly one time only for 1 dose. Encounter Status:Closed by MINERVA SHAVER MD on 11/19/17 CBC AND DIFFERENTIAL Collected: 10/15/2017 Status: F Source: [place] 11:07 AM [facility] REPOSITORY TYPE CODE TESTS RESULT OUT OF REFERENCE UNITS RANGE LAB WBC 3.70-11.00 k/uL WBC 6.45 LAB RBC 3.90-5.20 m/uL RBC 4.17 LAB HGB 11.5-15.5 g/dL Hemoglobin 12.8 LAB HCT 36.0-46.0 % Hematocrit 38.7 LAB MCV 80.0-100.0 fL MCV 92.8 LAB MCH 26.0-34.0 pG MCH 30.7 LAB MCHC 30.5-36.0 g/dL MCHC 33.1 LAB RDWCV 11.5-15.0 % RDW-CV 12.1 LAB PLTCT 150-400 k/uL Platelet Count 281 LAB MPV 9.0-12.7 fL MPV 10.6 LAB ANEUT % Neut% 42.9 LAB AANEUT 1.45-7.50 k/uL Abs Neut 2.77 LAB ALYMP % Lymph% 46.8 LAB AALYMP 1.00-4.00 k/uL Abs Lymph 3.02 LAB AMONO % Posey% 8.1 LAB AAMONO <0.87 k/uL Abs Posey 0.52 LAB AEOS % Eosin% 1.7 LAB AAEOS <0.46 k/uL Abs Eosin 0.11 LAB ABASO % Baso% 0.5 LAB AABASO <0.11 k/uL Abs Baso 0.03 LAB AUNRBC 0 /100 WBC NRBCs 0.0 LAB ABNRBC <0.01 k/uL Absolute nRBC <0.01 LAB DTYP DTYPE Auto Diff Performed By: #### CBCDIF, CMP, B12, TSH, FT4, T3, HBA1C, VITD #### [facility] [address] [place], [place] [address] COMP METABOLIC PANEL Collected: 10/15/2017 Status: F Source: [place] 11:07 AM [facility] REPOSITORY TYPE CODE TESTS RESULT OUT OF REFERENCE UNITS RANGE LAB TP 6.3-8.0 g/dL Protein, Total 6.7 LAB ALB 3.9-4.9 g/dL Albumin 4.3 LAB CA 8.5-10.2 mg/dL Calcium, Total 9.3 LAB TBIL 0.2-1.3 mg/dL Bilirubin, Total 0.3 LAB ALKP 32-117 U/L Alkaline Phosphatase 73 LAB AST 13-35 U/L AST 25 LAB GLU 74-99 mg/dL Glucose 83 Result Comment: The [place] Diabetes Association (ADA) provides guidance for cutoff values for fasting glucose and random glucose. The ADA defines fasting as no caloric intake for at least 8 hours. Fas ting plasma glucose results between 100 to 125 mg/dL indicate increased risk for diabetes (prediabetes). Fasting plasma glucose results greater than or equal to 126 mg/dL meet the criteria for diagnosis of diabetes. In the absence of unequivocal hyperglycemia, results should be confirmed by repeat testing. In a patient with classic symptoms of hyperglycemia or hyperglycemic crisis, random plasma glucose results greater than or equal to 200 mg/dL meet the criteria for diagnosis of diabetes. Reference: Standards of Medical Care in Diabetes 2016, [place] Diabetes Association. Diabetes Care. 2016.39(Suppl 1). LAB BUN 7-21 mg/dL BUN 16 LAB CRET 0.58-0.96 mg/dL Creatinine Low 0.56 LAB NA 136-144 mmol/L Sodium 139 LAB K 3.7-5.1 mmol/L Potassium 4.4 LAB CL 97-105 mmol/L Chloride 102 LAB CO2 22-30 mmol/L CO2 26 LAB AGAP 9-18 mmol/L Anion Gap 11 LAB ALT 7-38 U/L ALT 23 LAB GFRAA eGFR- Amer. >60 LAB GFRNAA . eGFR-All Other Races >60 Result Comment: eGFR (Estimated GFR) Units of measure: mL/min/1.73 meters squared eGFR is derived from the reexpressed MDRD Study equation using the following parameters: serum creatinine, age, gender and race. The creatinine assay has been calibrated to be traceable to IDMS. An eGFR <60 mL/min/1.73m2 for >3 months is consistent with chronic kidney disease. Refer to KDOQI guidelines for clinical interpretation. In patients with unstable renal function, e.g. those with acute kidney injury, the eGFR may not accurately reflect actual GFR. Performed By: #### CBCDIF, CMP, B12, TSH, FT4, T3, HBA1C, VITD #### [facility] [address] [address] VITAMIN B12 Collected: 10/15/2017 Status: F Source: [place] 11:07 AM [facility] REPOSITORY TYPE CODE TESTS RESULT OUT OF REFERENCE UNITS RANGE LAB B12 232-1245 pg/mL High Vitamin B12 >2000 Performed By: #### CBCDIF, CMP, B12, TSH, FT4, T3, HBA1C, VITD #### [facility] [address] [phone] TSH Collected: 10/15/2017 Status: F Source: [place] 11:07 AM [facility] REPOSITORY TYPE CODE TESTS RESULT OUT OF RANGE REFERENCE UNITS LAB TSH 0.400-5.500 uU/mL TSH 2.670 Performed By: #### CBCDIF, CMP, B12, TSH, FT4, T3, HBA1C, VITD #### [facility] [address] [address] FREE T4 Collected: 10/15/2017 Status: F Source: [place] 11:07 AM [facility] REPOSITORY TYPE CODE TESTS RESULT OUT OF RANGE REFERENCE UNITS LAB FT4 0.9-1.7 ng/dL Free T4 1.0 Performed By: #### CBCDIF, CMP, B12, TSH, FT4, T3, HBA1C, VITD #### [facility] [address] [address] T3 Collected: 10/15/2017 Status: F Source: [facility] 11:07 [facility] REPOSITORY TYPE CODE TESTS RESULT OUT OF RANGE REFERENCE UNITS LAB T3 79-165 ng/dL T3 110 Performed By: #### CBCDIF, CMP, B12, TSH, FT4, T3, HBA1C, VITD #### [facility] [address] [id number] HEMOGLOBIN A1C Collected: 10/15/2017 Status: F Source: [place] 11:07 [facility] REPOSITORY TYPE CODE TESTS RESULT OUT OF REFERENCE UNITS RANGE LAB HGBA1C 4.3-5.6 % Hemoglobin A1c 5.5 LAB HBA0 mg/dL Est. Average Glucose 111 Result Comment: eAG: (Estimated average glucose) is a calculated value from HgbA1c and is paper sales representative of the average blood glucose level in the last 2-3 month period. Performed By: #### CBCDIF, CMP, B12, TSH, FT4, T3, HBA1C, VITD #### [facility] [address] [place] [address] VITAMIN D 25 HYDROXY Collected: 10/15/2017 Status: F Source: [place] 11:07 [facility] TYPE CODE TESTS RESULT OUT OF REFERENCE UNITS RANGE LAB VITD 31.0-80.0 ng/mL Vitamin D 25 68.0 Hydroxy Result Comment: Classification of 25 [place] Vitamin D status: Insufficiency/Moderate Deficiency: < or = 30 ng/mL Sufficiency/Optimal Levels: 31 to 80 ng/mL Toxicity: > 100 ng/mL Test performed by chemiluminescent immunoassay. Performed By: #### CBCDIF, CMP, B12, TSH, FT4, T3, HBA1C, VITD #### [facility] [address] [place] [id number] CNOV Observed: 10/14/2017 Status: COMPLETED Source: [place] 3:40 PM [facility] REPOSITORY Office Visit (INTMWS) ELIZABETH DELGADO ([id number]) 1945 F [facility] Date Time Provider Department 10/14/17 3:40 PM MINERVA SHAVER During your visit today, we recorded the following information about you: Respiration Blood pressure Weight Height 12/minute 128/70 63.5 kg 1.524 m MINERVA SHAVER MD 10/14/2017 4:22 PM Signed Reason for Visit Patient presents with: Established Patient: hypertension Elizabeth Delgado is a 72 year old female who presents here today for Above Complaints.. Health Maintenance DTAP,TDAP,TD(1 - Tdap) MAMMOGRAM HPI She had her sleep study done at [facility] and she was told she had very mild and did not need a pap machine. She notes that she wakes up feeling tired in the morning even after 7 hours of sleep. Notes hair loss, weight gain despite eating the same and exercising more. Also has episodes of dizziness, in the past 4 weeks mostly at night time she starts getting dizzy, she has a dinner at 3 pm and and does not eat anything till 9 pm. And she exercised in between. She has sob , every morning when she woke up but she cannot take albuterol as it puts her back in afib. No problem-specific Assessment AND Plan notes found for this encounter. PAST MEDICAL HISTORY Diagnosis Date - Anxiety - Atrial fibrillation (HCC) s/p ablation 07/2015 - Backache, unspecified - Carpal tunnel syndrome, bilateral - DVT (deep venous thrombosis) ([facility]) remote - Esophageal reflux - History of DVT (deep vein thrombosis) 11/10/2015 - HTN (hypertension) - Irritable bowel syndrome - Left ventricular systolic dysfunction 11/08/2016 - PONV (postoperative nausea and vomiting) - S/P cervical spinal fusion - Scoliosis PAST SURGICAL HISTORY Procedure Laterality Date - CHOLECYSTECTOMY 10/2016 - COLONOSCOP W/ OR W/O [facility] SPEC 10/06/13 Colonoscopy - COLONOSCOP W/ OR W/O [facility] SPEC 11/22/2015 Colonoscopy - CONIZATION OF CERVIX, LEEP - DANDC AFTER DELIVERY - EGD W/O [facility] SPECIMEN W/BX 02/08/11 - EGD W/O OR W/BRUSH/WASH 10/06/13 EGD - EGD W/O OR W/BRUSH/WASH 11/22/2015 EGD - EGD W/O OR W/BRUSH/WASH 02/28/2016 EGD - LIGATE FALLOPIAN TUBE Tubal ligation - PAST SURGICAL HISTORY OF NECK SURGERY, anterior fusion - PAST SURGICAL HISTORY OF Face lift - PAST SURGICAL HISTORY OF back surgery - PAST SURGICAL HISTORY OF bilat foot surgey, bunionectomy - PAST SURGICAL HISTORY OF benign tumor removed from right breast - PAST SURGICAL HISTORY OF 03/2011 B/L cataract surgery with implants- Dr Jacob Aguilar at [facility] - PAST SURGICAL HISTORY OF 07/27/15 cryo ablation, cardiac - REMOVAL OF OVARY(S) 07/17/2010 Oophorectomy - left Dr. Manuel Hoover - Dr. Alessio Dahl - REPAIR UMBILICAL LUTHER,5+Y/O,REDUC 07/17/2010 Hernia repair, umbilical >5yr [facility] [facility] Dr Manuel Hoover - [facility] N/CARPAL TUNNEL SURG 02/14/12 Carpal tunnel decomp - right FAMILY HISTORY Problem Relation Age of Onset - Hypertension Mother - Stroke Mother - Coronary Artery Disease Father - UMA'S DISEASE [OTHER] Brother Liver dse, cirrhosis Social History Substance Use Topics - Smoking status: Former Smoker Packs/day: 2.00 Years: 35.00 Types: Cigarettes Quit date: 11/09/2005 - Smokeless tobacco: Never Used Comment: Stopped smoking 12/2005 - Alcohol use 0.0 - 9.0 oz/week Comment: mixed drink in p.m. Past medical history, appointments, medications, allergies reviewed. Pertinent Lab/Diagnostic Studies are reviewed and discussed today Current Outpatient Prescriptions: - metoprolol succinate ER (TOPROL XL) 50 mg 24 hr tablet - prednisoLONE acetate (PRED FORTE, ECONOPRED PLUS) 1 % ophthalmic suspension - azithromycin (ZITHROMAX) 250 mg tablet - furosemide (LASIX) 40 mg tablet - omeprazole (PRILOSEC) 20 mg capsule - mupirocin (BACTROBAN) 2 % cream - warfarin (COUMADIN) 1 mg tablet - warfarin (COUMADIN) 2 mg tablet - potassium chloride (KLOR-CON 10) 10 mEq tablet - meclizine (ANTIVERT) 25 mg tab - sodium chloride (AYR, OCEAN) 0.65 % nasal spray - MULTIVITAMIN WITH MINERALS (ONE-A-DAY 50 PLUS ORAL) - CALCIUM CARBONATE/VITAMIN D3 (VITAMIN D-3 ORAL) - [id number] ORAL - ACETAMINOPHEN (TYLENOL ORAL) Review of Systems CONSTITUTIONAL: No fevers, chills night sweats, unintended weight loss CARDIOVASCULAR: No chest pain, dyspnea, palpitations, orthopnea, PND, ankle edema. PULM: No dyspnea, unexplained cough. GI: No dysphagia/odynophagia, problematic reflux, constipation, diarrhea, changes in stool habits, hematochezia, melena. : No new urinary complaints, including dysuria, gross hematuria or pyuria. NEURO: No new balance problems, peripheral weakness/paresthesias or numbness of concern. Physical Exam BP 128/70 (BP Site: Left Arm, BP Position: Sitting, BP Cuff Size: Regular Adult) Resp 12 Ht 152.4 cm (5') Wt 63.5 kg (140 lb) BMI 27.34 kg/m? General appearance: Well appearing, alert, in no acute distress, well nourished. Skin: Skin color, texture, turgor normal, no suspicious rashes or lesions Head: Normocephalic, no masses, lesions, tenderness or abnormalities Eyes: Anicteric sclera. Pupils are equally round and reactive to light. Extraocular movements are intact. Lungs: Lungs clear to auscultation. No wheezing, rhonchi, rales Heart: RRR without murmur, gallop, or rubs. ASSESSMENT/PLAN: 1. Sleep apnea, unspecified type - ICD9: 780.57, ICD10: G47.30 (primary diagnosis) I think a large part of her complaints stem from untreated sleep apnea , will try to get her to see Dr. schmitt - CONSULT TO SLEEP MEDICINE - ADULT 2. Chronic atrial fibrillation (HCC) - ICD9: 427.31, ICD10: I48.2 In remission off anticoagulants at this time 3. Panlobular emphysema (HCC) - ICD9: 492.8, ICD10: J43.1 cannot use albuterol due to the the fact that she goes into afib checking her lung volumes to know 4. Breast cancer screening by mammogram - ICD9: V76.12, ICD10: Z12.31 - Encouraged monthly BSE - Follow up for annual exam in one year. - CLARIBEL SCREENING 5. Weight gain - ICD9: 783.1, ICD10: R63.5 Will chech her tsh. 6. Hair loss - ICD9: 704.00, ICD10: L65.9 Will chech her tsh. 7. Other fatigue - ICD9: 780.79, ICD10: R53.83 - CBC + DIFF - VITAMIN B12 BLOOD - TSH BLD - COMP METABOLIC PANEL - T4 FREE/FREE THYROX - T3 BLD - CONSULT TO SLEEP MEDICINE - ADULT 8. Vitamin D deficiency - ICD9: 268.9, ICD10: E55.9 - VITAMIN D 25 HYDROXY 9. Low blood sugar - ICD9: 251.2, ICD10: E16.2 - HGB A1C MINERVA SHAVER MD Referring Provider: SELF [200] Allergies As of Date: 10/14/2017 Noted Allergy Reaction CARDIZEM (DILTIAZEM HCL) 01/18/2015 7 - Swelling CODEINE 01/21/2006 11 - Vomiting Comments: Ringing in Ears. ENTEX (PHENYLEPHRINE-GUAIFENESIN) 03/06/2007 2 - Rash ETODOLAC 07/06/2012 14 - Other: See Comments Comments: Heart palpitations MELOXICAM 05/25/2012 14 - Other: See Comments Comments: Heart palpitations NAPROXEN 01/29/2011 7 - Swelling Comments: Possible allergy? Pt relates to naproxen surgical tape adhesives [Other] 08/31/2008 2 - Rash TRAZODONE 08/19/2014 14 - Other: See Comments Comments: rapid hear beat ZANTAC (RANITIDINE HCL) 05/29/2016 2 - Rash 7 - Swelling Date Reviewed: 10/14/2017 Reviewed by: Felicitas Prince LPN - Fully Assessed Reason for Visit: Established Patient [175] Cmt: hypertension Primary Visit Diagnosis:Sleep apnea, unspecified type [G47.30] Other Visit Diagnoses:Chronic atrial fibrillation (HCC) [I48.2] Panlobular emphysema (HCC) [J43.1] Breast cancer screening by mammogram [Z12.31] Weight gain [R63.5] Hair loss [L65.9] Other fatigue [R53.83] Vitamin D deficiency [E55.9] Low blood sugar [E16.2] Order(s):CLARIBEL SCREENING [5542965] Order #: [id number] FUTURE CBC + DIFF [SQCBCDIF] Order #: [id number] FUTURE HGB A1C [GSAZJ7T] Order #: [id number] FUTURE VITAMIN B12 BLOOD [SQB12] Order #: [id number] FUTURE TSH BLD [SQTSH] Order #: [id number] FUTURE VITAMIN D 25 HYDROXY [SQVITD] Order #: [id number] FUTURE COMP METABOLIC PANEL [SQCMP] Order #: [id number] FUTURE T4 FREE/FREE THYROX [SQFT4] Order #: [id number] FUTURE T3 BLD [SQT3] Order #: [id number] FUTURE CONSULT TO SLEEP MEDICINE - ADULT [[id number]] Order #: [id number]: 1 LUNG VOLUMES [4525028] Order #: [id number] FUTURE SPIROMETRY WITH DILATOR IF OBSTRUCTED [] Order #: [id number] FUTURE Prescriptions as of 10/14/2017 Sig: METOPROLOL SUCCINATE ER 50 MG* Take 1 tablet by mouth once d* FUROSEMIDE 40 MG TABLET Uses when legs are swollen POTASSIUM CHLORIDE ER 10 MEQ * Take 1 tablet by mouth daily * SODIUM CHLORIDE 0.65 % NASAL * Use 2 Sprays in the nose ever* ONE-A-DAY 50 PLUS ORAL Take by mouth. VITAMIN D-3 ORAL Take 1,000 mg by mouth five t* [id number] ORAL Take by mouth. TYLENOL ORAL Take 1 tablet by mouth as nee* Problem List As Of Date 10/14/2017 Noted Resolved PERSISTENT INSOMNIA [G47.00] INVALID FOR* More... MOSES'S ESOPHAGUS [K22.70] INVALID FOR* CALCULUS OF KIDNEY [N20.0] INVALID FOR* Irritable bowel syndrome [K58.9] INVALID FOR*01/10/2016 More... Tobacco use disorder [F17.200] INVALID FOR*01/10/2016 More... Pain in joint, shoulder region [M25.519] INVALID FOR*09/25/2015 ANXIETY GENERALIZED [F41.1] INVALID FOR*01/10/2016 Umbilical hernia without mention of obstruction*INVALID FOR*09/25/2015 Carpal tunnel syndrome, left [G56.02] INVALID FOR* Carpal tunnel syndrome, right [G56.01] INVALID FOR*01/10/2016 Right shoulder strain [S46.911A] INVALID FOR*09/25/2015 Tendonitis of shoulder, right [M75.81] INVALID FOR* Rotator cuff tear [M75.100] INVALID FOR* More... Hematuria [R31.9] INVALID FOR*09/25/2015 Smoking history [Z87.891] INVALID FOR* Hypertension [I10] INVALID FOR* More... Atrial fibrillation (HCC) [I48.91] INVALID FOR* More... Panlobular emphysema (HCC) [J43.1] INVALID FOR* More... Arthritis [M19.90] INVALID FOR* More... History of DVT (deep vein thrombosis) [Z86.718] INVALID FOR* Encounter for colonoscopy due to history of cony*INVALID FOR*11/22/2015 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 [K22.7*INVALID FOR*11/22/2015 S/P cervical spinal fusion [Z98.1] INVALID FOR* Medications Discontinued During This Encounter warfarin (COUMADIN) 1 mg tablet 60 t* 2 12/17/2016 10/14/2017 Route: ORAL Sig: Take 1 tablet by mouth daily as directed. Disc: Reason for discontinue is not on file. warfarin (COUMADIN) 2 mg tablet 90 t* 2 12/17/2016 10/14/2017 Route: ORAL Sig: Take 1 tablet by mouth daily as directed. Disc: Reason for discontinue is not on file. meclizine (ANTIVERT) 25 mg tab 30 t* 1 10/10/2015 10/14/2017 Route: ORAL Sig: Take 1 tablet by mouth every 6 hours as needed (dizziness). Disc: Reason for discontinue is not on file. mupirocin (BACTROBAN) 2 % cream 30 T* 0 12/24/2016 10/14/2017 Route: TOPICAL Sig: Apply 1 application to affected area twice daily. Location: right forearm Disc: Reason for discontinue is not on file. omeprazole (PRILOSEC) 20 mg capsule 30 c* 0 02/07/2017 10/14/2017 Class: Med Update Route: ORAL Sig: Take 1 capsule by mouth daily before breakfast. 1/2 hr before meal. Disc: Reason for discontinue is not on file. prednisoLONE acetate (PRED FORTE, EC* 1 Henry* 0 04/29/2017 10/14/2017 Sig: Please use for the right ear 2 times a day. Disc: Reason for discontinue is not on file. azithromycin (ZITHROMAX) 250 mg tabl* 6 ta* 0 03/03/2017 10/14/2017 Route: ORAL Sig: Take 1 tablet by mouth once daily. Disc: Reason for discontinue is not on file. Encounter Status:Closed by MINERVA SHAVER MD on 10/14/17 PROGRESS Observed: 10/14/2017 Status: COMPLETED Source: [place] 3:20 PM [facility] [place] REPOSITORY HNO ID: [id number] Author: Minerva Shaver Service: (none) Author Type: Physician Type: Progress Notes Filed: 10/14/2017 4:22 PM Note Text: Reason for Visit Patient presents with: Established Patient: hypertension Elizabeth Delgado is a 72 year old female who presents here today for Above Complaints.. Health Maintenance DTAP,TDAP,TD(1 - Tdap) MAMMOGRAM HPI She had her sleep study done at [facility] and she was told she had very mild and did not need a pap machine. She notes that she wakes up feeling tired in the morning even after 7 hours of sleep. Notes hair loss, weight gain despite eating the same and exercising more. Also has episodes of dizziness, in the past 4 weeks mostly at night time she starts getting dizzy, she has a dinner at 3 pm and and does not eat anything till 9 pm. And she exercised in between. She has sob , every morning when she woke up but she cannot take albuterol as it puts her back in afib. No problem-specific Assessment AND Plan notes found for this encounter. PAST MEDICAL HISTORY Diagnosis Date - Anxiety - Atrial fibrillation (HCC) s/p ablation 07/2015 - Backache, unspecified - Carpal tunnel syndrome, bilateral - DVT (deep venous thrombosis) (HCC) remote - Esophageal reflux - History of DVT (deep vein thrombosis) 11/10/2015 - HTN (hypertension) - Irritable bowel syndrome - Left ventricular systolic dysfunction 11/08/2016 - PONV (postoperative nausea and vomiting) - S/P cervical spinal fusion - Scoliosis PAST SURGICAL HISTORY Procedure Laterality Date - CHOLECYSTECTOMY 10/2016 - COLONOSCOP W/ OR W/O BRS SPEC 10/06/13 Colonoscopy - COLONOSCOP W/ OR W/O BRS SPEC 11/22/2015 Colonoscopy - CONIZATION OF CERVIX, LEEP - DANDC AFTER DELIVERY - EGD W/O BRSH SPECIMEN W/BX 02/08/11 - EGD W/O OR W/BRUSH/WASH 10/06/13 EGD - EGD W/O OR W/BRUSH/WASH 11/22/2015 EGD - EGD W/O OR W/BRUSH/WASH 02/28/2016 EGD - LIGATE FALLOPIAN TUBE Tubal ligation - PAST SURGICAL HISTORY OF NECK SURGERY, anterior fusion - PAST SURGICAL HISTORY OF Face lift - PAST SURGICAL HISTORY OF back surgery - PAST SURGICAL HISTORY OF bilat foot surgey, bunionectomy - PAST SURGICAL HISTORY OF benign tumor removed from right breast - PAST SURGICAL HISTORY OF 03/2011 B/L cataract surgery with implants- Dr Jacob Aguilar at [facility] - PAST SURGICAL HISTORY OF 07/27/15 cryo ablation, cardiac - REMOVAL OF OVARY(S) 07/17/2010 Oophorectomy - left Dr. Manuel Hoover - Dr. Alessio Dahl - REPAIR UMBILICAL LUTHER,5+Y/O,REDUC 07/17/2010 Hernia repair, umbilical >5yr [facility] Dr Manuel Hoover - [facility] N/CARPAL TUNNEL SURG 02/14/12 Carpal tunnel decomp - right FAMILY HISTORY Problem Relation Age of Onset - Hypertension Mother - Stroke Mother - Coronary Artery Disease Father - UMA'S DISEASE [OTHER] Brother Liver dse, cirrhosis Social History Substance Use Topics - Smoking status: Former Smoker Packs/day: 2.00 Years: 35.00 Types: Cigarettes Quit date: 11/09/2005 - Smokeless tobacco: Never Used Comment: Stopped smoking 12/2005 - Alcohol use 0.0 - 9.0 oz/week Comment: mixed drink in p.m. Past medical history, appointments, medications, allergies reviewed. Pertinent Lab/Diagnostic Studies are reviewed and discussed today Current Outpatient Prescriptions: - metoprolol succinate ER (TOPROL XL) 50 mg 24 hr tablet - prednisoLONE acetate (PRED FORTE, ECONOPRED PLUS) 1 % ophthalmic suspension - azithromycin (ZITHROMAX) 250 mg tablet - furosemide (LASIX) 40 mg tablet - omeprazole (PRILOSEC) 20 mg capsule - mupirocin (BACTROBAN) 2 % cream - warfarin (COUMADIN) 1 mg tablet - warfarin (COUMADIN) 2 mg tablet - potassium chloride (KLOR-CON 10) 10 mEq tablet - meclizine (ANTIVERT) 25 mg tab - sodium chloride (AYR, OCEAN) 0.65 % nasal spray - MULTIVITAMIN WITH MINERALS (ONE-A-DAY 50 PLUS ORAL) - CALCIUM CARBONATE/VITAMIN D3 (VITAMIN D-3 ORAL) - [id number] ORAL - ACETAMINOPHEN (TYLENOL ORAL) Review of Systems CONSTITUTIONAL: No fevers, chills night sweats, unintended weight loss CARDIOVASCULAR: No chest pain, dyspnea, palpitations, orthopnea, PND, ankle edema. PULM: No dyspnea, unexplained cough. GI: No dysphagia/odynophagia, problematic reflux, constipation, diarrhea, changes in stool habits, hematochezia, melena. : No new urinary complaints, including dysuria, gross hematuria or pyuria. NEURO: No new balance problems, peripheral weakness/paresthesias or numbness of concern. Physical Exam BP 128/70 (BP Site: Left Arm, BP Position: Sitting, BP Cuff Size: Regular Adult) Resp 12 Ht 152.4 cm (5') Wt 63.5 kg (140 lb) BMI 27.34 kg/m? General appearance: Well appearing, alert, in no acute distress, well nourished. Skin: Skin color, texture, turgor normal, no suspicious rashes or lesions Head: Normocephalic, no masses, lesions, tenderness or abnormalities Eyes: Anicteric sclera. Pupils are equally round and reactive to light. Extraocular movements are intact. Lungs: Lungs clear to auscultation. No wheezing, rhonchi, rales Heart: RRR without murmur, gallop, or rubs. ASSESSMENT/PLAN: 1. Sleep apnea, unspecified type - ICD9: 780.57, ICD10: G47.30 (primary diagnosis) I think a large part of her complaints stem from untreated sleep apnea , will try to get her to see Dr. schmitt - CONSULT TO SLEEP MEDICINE - ADULT 2. Chronic atrial fibrillation (HCC) - ICD9: 427.31, ICD10: I48.2 In remission off anticoagulants at this time 3. Panlobular emphysema (HCC) - ICD9: 492.8, ICD10: J43.1 cannot use albuterol due to the the fact that she goes into afib checking her lung volumes to know 4. Breast cancer screening by mammogram - ICD9: V76.12, ICD10: Z12.31 - Encouraged monthly BSE - Follow up for annual exam in one year. - CLARIBEL SCREENING 5. Weight gain - ICD9: 783.1, ICD10: R63.5 Will chech her tsh. 6. Hair loss - ICD9: 704.00, ICD10: L65.9 Will chech her tsh. 7. Other fatigue - ICD9: 780.79, ICD10: R53.83 - CBC + DIFF - VITAMIN B12 BLOOD - TSH BLD - COMP METABOLIC PANEL - T4 FREE/FREE THYROX - T3 BLD - CONSULT TO SLEEP MEDICINE - ADULT 8. Vitamin D deficiency - ICD9: 268.9, ICD10: E55.9 - VITAMIN D 25 HYDROXY 9. Low blood sugar - ICD9: 251.2, ICD10: E16.2 - HGB A1C MINERVA SHAVER MD CARDIOLOGY VISIT Observed: 09/09/2017 Status: F Source: [facility] 4:28 PM [facility] REPOSITORY [facility] [address] [place] [address] OFFICE VISIT Date of Service: 09/08/17 MR#: [id number] Acct: [id number] Name: ELIZABETH DELGADO Rep #: [id number] : 1945 Provider: Susan Mac Age/Sex: 72/F Location: [facility] Status: Signed HPI HPI Details: ELIZABETH DELGADO, is a 72 F who presents to the office today for cardiovascular follow-up. She has a history of atrial fibrillation with RVR and mild congestive heart failure. From a cardiac standpoint, patient is doing well. She does not have any chest discomfort/heaviness/tightness. Her exercise tolerance is stable for her age. She does not have any worsening symptoms of shortness of breath. She does not have any orthopnea. She denies PND. She does not have any symptoms of congestive heart failure. She does not have any palpitations that she is aware of. She does not have any lightheadedness or dizziness. She does not have any near-syncope or syncope. She does not have any lower extremity edema. She does not have any symptoms of claudication. Intake Vital Signs09/08/17 Height 5 ft 09/08/17 Weight: 142 lb 09/08/17 Body Mass Index (BMI) 27.7 09/08/17 Blood Pressure 122/64 Intake Visit Reasons: 6 M Manager Marketing Required: No Accompanied by: none Is patient in pain?: No Allergies diltiazem HCl [From Cardizem] Allergy (Verified 09/08/17 15:36) Swelling of face and neck naproxen Allergy (Verified 09/08/17 15:36) Swelling (whole body) amiodarone Adverse Reaction (Severe, Verified 09/08/17 15:36) Severe dyspnea after taking PO Amiodarone adhesive Adverse Reaction (Verified 09/08/17 15:36) Rash albuterol Adverse Reaction (Verified 09/08/17 15:36) Other codeine Adverse Reaction (Verified 09/08/17 15:36) Vomiting hydrocodone bitartrate [From Vicodin] Adverse Reaction (Verified 09/08/17 15:36) Vomiting morphine Adverse Reaction (Verified 09/08/17 15:36) Vomiting Medications Multivitamins,Therapeutic [Multivitamin] 1 tab PO DAILY 03/15/13 [History Confirmed 09/08/17] Cholecalciferol (VIT D3) [Vitamin D3] 1,000 unit PO DAILY 01/09/15 [History Confirmed 09/08/17] Meclizine HCl [Antivert] 25 mg PO Q6H PRN 01/09/15 [History Confirmed 09/08/17] Melatonin/Pyridoxine [Melatonin 3 mg Tablet] 1 ea PO QHS 01/09/15 [History Confirmed 09/08/17] Cyanocobalamin [Vitamin B12] 5,000 mcg PO DAILY@0800 04/13/15 [History Confirmed 09/08/17] Calcium Carbonate [Calcium] 500 mg PO DAILY 10/08/16 [History Confirmed 09/08/17] aspirin 81 mg tablet,delayed release 81 mg PO QDAY 09/08/17 [History Confirmed 09/08/17] furosemide 40 mg tablet 40 mg PO .prn tab 09/08/17 [History Confirmed 09/08/17] metoprolol succinate ER 50 mg tablet,extended release 24 hr PO 90 Days #90 09/08/17 [History Confirmed 09/08/17] Ejection fraction %: 45 to 49 PFSH Medical History Cardiomyopathy in other diseases classified elsewhere (Chronic) Nonrheumatic aortic valve stenosis (Chronic) Non-rheumatic tricuspid valve insufficiency (Chronic) Acute cholecystitis (Chronic) GERD (gastroesophageal reflux disease) (Chronic) CHF (congestive heart failure) (Chronic) Atrial fibrillation (Chronic) Surgical History S/P bunionectomy (Resolved) H/O neck surgery (Resolved) ovarian surgery (Resolved) H/O hernia repair (Resolved) Hx of cholecystectomy (Resolved) Family History Sister Afib Father CAD (coronary artery disease) Brother CVA (cerebral vascular accident) Mother No problems noted. Sister No problems noted. Brother Wilsons disease Brother Wilsons disease Social History Smoking Status: Former smoker alcohol intake: never substance use type: does not use caffeine: Yes Type: coffee Number of servings: 1 what type of physical activity do you participate in: walking frequency: daily seatbelt use: always do you feel safe at home: Yes ROS Const Const: Negative for weakness, fatigue, fever(s) or headache(s) Eyes Eyes: Negative for blind spots, loss of peripheral vision or transient loss of vision ENT ENT: Negative for headache(s), dizziness, tinnitus or Nosebleed/epistaxis Cardio Chest Pain: No Palpitations: No Edema: None Muscle aches with walking: None Resp Respiratory: Negative for SOB with activity, SOB at rest, SOB orthopnea\SOB lying down or Cough GI GI: Negative nausea, vomiting, heartburn or vomiting blood/hematemesis : Negative for hematuria Musc Musc: Negative for muscle aches/ myalgia Neuro Neuro: Negative for weakness, headache(s), dizziness, near syncope, syncope, lightheadedness or orthostatic symptoms Jaguar Hematologic/Lymphatic: Negative for easy bleeding Endo Endo: Negative for fatigue Cardiology Exam Const Appearance: cooperative, no acute distress and well developed Orientation: alert, awake and oriented x3 Head Head: normocephalic and atraumatic Mouth: moist mucous membranes Eyes General: appearance normal, both eyes and all related structures Conjunctivae: conjunctivae normal Pupils: PERRL EOM: EOM intact bilaterally Neck Neck: normal visual inspection, no lymphadenopathy and no JVD Carotids: Negative bruit Neck Mass: Negative Neck mass Chest Chest inspection: normal inspection of the chest and symmetric chest movement Auscultation: Bilateral: Clear to Auscultation Cardio Palpation: normal PMI Rate: regular rate Rhythm: regular rhythm Heart sounds: S1 normal and S2 normal; negative rub, gallop or murmur GI GI: normal to inspection, soft, no hepatosplenomegaly and bowel sounds present; negative tender Neuro General: alert, awake, oriented x3, CN's II-XI intact bilaterally and moves all extremities Extremities Pulses: Normal: Right Posterior Tibial Pulse, Left Posterior Tibial Pulse, Right Radial Pulse, Left Radial Pulse Lower Extremity Edema: None: Bilateral Psych Psychological: normal affect Supplemental Info Echocardiogram done in 2017 demonstrates normal LV size with an estimated ejection fraction of 47%. Left atrium mildly enlarged. Mild mitral and tricuspid insufficiency. Assessment AND Plan 1. Paroxysmal atrial fibrillation I48.0 Plan - RENEE Rizvi Patient has not had any symptomatic recurrence. She will continue with her beta-karson and aspirin. If she has any recurrence we will need to reconsider anticoagulation. 2. Cardiomyopathy in other diseases classified elsewhere I43 Plan - RENEE Rizvi Patient does have a mildly reduced ejection fraction. She will continue with aggressive medical management. She does not have any symptoms of congestive heart failure. We will continue to monitor by history, exam and echocardiograms as deemed appropriate. Plan Detail Other Medications Discontinued: Additional Comments - RENEE Rizvi The above patient was discussed with Dr. Ibarra, he agrees with plan of care. Thank you for allowing us to participate in patient's plan of care, if you have any questions please do not hesitate to call. This note was generated using a voice recognition system and there may be incorrect words, spelling or punctuation errors that were not noted when reviewing the office note prior to saving. Follow Up 6 Months ([employer]) Coding Level of Care Code Off vis,est,level 3 Diagnoses Paroxysmal atrial fibrillation I48.0 Atrial fibrillation type: paroxysmal Cardiomyopathy in other diseases classified elsewhere I43 Coding Level of Care Code Off vis,est,level 3 Diagnoses Paroxysmal atrial fibrillation I48.0 Atrial fibrillation type: paroxysmal Cardiomyopathy in other diseases classified elsewhere I43 09/09/17 1328 <Electronically signed by Susan DURAN> Date Susan DURAN 09/09/17 1628<Electronically signed by Maxim Ibarra MD> Cosigner Signature: Date (if applicable) Maxim Ibarra MD CC: Minerva Shaver MD PROGRESS Observed: 07/10/2017 Status: COMPLETED Source: [place] 3:00 PM [facility] [place] REPOSITORY HNO ID: [id number] Author: Mary Cain Cma Service: (none) Author Type: (none) Type: Progress Notes Filed: 07/10/2017 3:01 PM Note Text: I spoke with Elizabeth and we scheduled a follow up for 09/26/17. The patient has been identified by name and date of : YES I have scheduled the patient for an appointment on 09/26/2017. The patient will report to the lab prior to the visit. PHMA Documentation 07/10/2017 Opts out of [facility] No Appointments Scheduled Scheduled PCP Appt Mary Cain Cma PROGRESS Observed: 07/10/2017 Status: COMPLETED Source: [place] 2:52 PM [facility] [place] REPOSITORY HNO ID: [id number] Author: Mary Cain Cma Service: (none) Author Type: (none) Type: Progress Notes Filed: 07/10/2017 3:01 PM Note Text: [facility] CARE GAP REGISTRY DOCUMENTATION (OUTSIDE TEAMLET) Provider Action/FYI: PSR Action/FYI: Patient identified by name and date of . Last BP/Labs: Blood Pressure: Last 3 Encounter BP Readings: Date: BP: 02/28/2017 150/64 02/07/2017 136/64 12/24/2016 116/62 Lipids: Cholesterol, Total (mg/dL) Date Value 03/28/2017 193 11/04/2015 188 HDL Cholesterol (mg/dL) Date Value 03/28/2017 66 11/04/2015 70 LDL Cholesterol (mg/dL) Date Value 03/28/2017 93 11/04/2015 107 Triglyceride (mg/dL) Date Value 03/28/2017 171 11/04/2015 55 HGB A1C: No results found for: HBA1C TSH: TSH (uU/mL) Date Value 06/06/2016 2.090 05/10/2015 4.110 ) ? Patient has the following care gap registry disease diagnosis:HTN ? afib ? Patient has the following open care gaps:HTN - Last BP NOT under 140/90 ? afib ? Last office visit: 02/07/2017 ? Future office visit:Follow-up htn in next available with Provider pcp or [facility] [facility] Health Maintenance Due: MAMMOGRAM due on 05/16/2016 TETANUS due on 07/16/2016 Mary Cain Cma CNPTOUTREACH Observed: 07/10/2017 Status: COMPLETED Source: [place] 12:00 AM [facility] REPOSITORY Patient Outreach (INTMWS) ELIZABETH DELGADO ([id number]) 1945 [facility] Date Time Provider Department 07/10/17 MARY CAIN (TRANSPORT TECHNICIAN) INTMWS During your visit today, we recorded the following information about you: Mary Cain Cma 07/10/2017 3:[address] [facility] CARE GAP REGISTRY DOCUMENTATION (OUTSIDE TEAMLET) Provider Action/FYI: PSR Action/FYI: Patient identified by name and date of . Last BP/Labs: Blood Pressure: Last 3 Encounter BP Readings: Date: BP: 02/28/2017 150/64 02/07/2017 136/64 12/24/2016 116/62 Lipids: Cholesterol, Total (mg/dL) Date Value 03/28/2017 193 11/04/2015 188 HDL Cholesterol (mg/dL) Date Value 03/28/2017 66 11/04/2015 70 LDL Cholesterol (mg/dL) Date Value 03/28/2017 93 11/04/2015 107 Triglyceride (mg/dL) Date Value 03/28/2017 171 11/04/2015 55 HGB A1C: No results found for: HBA1C TSH: TSH (uU/mL) Date Value 06/06/2016 2.090 05/10/2015 4.110 ) ? Patient has the following care gap registry disease diagnosis:HTN ? afib ? Patient has the following open care gaps:HTN - Last BP NOT under 140/90 ? afib ? Last office visit: 02/07/2017 ? Future office visit:Follow-up htn in next available with Provider pcp or [facility]IST Health Maintenance Due: MAMMOGRAM due on 05/16/2016 TETANUS due on 07/16/2016 Mary Cain Cma 07/10/2017 3:01 PM Signed I spoke with Elizabeth and we scheduled a follow up for 09/26/17. The patient has been identified by name and date of : YES I have scheduled the patient for an appointment on 09/26/2017. The patient will report to the lab prior to the visit. PHMA Documentation 07/10/2017 Opts out of [facility] No Appointments Scheduled Scheduled PCP Appt Mary Cain Cma Allergies As of Date: 07/10/2017 Noted Allergy Reaction CARDIZEM (DILTIAZEM HCL) 01/18/2015 7 - Swelling CODEINE 01/21/2006 11 - Vomiting Comments: Ringing in Ears. ENTEX (PHENYLEPHRINE-GUAIFENESIN) 03/06/2007 2 - Rash ETODOLAC 07/06/2012 14 - Other: See Comments Comments: Heart palpitations MELOXICAM 05/25/2012 14 - Other: See Comments Comments: Heart palpitations NAPROXEN 01/29/2011 7 - Swelling Comments: Possible allergy? Pt relates to naproxen TRAZODONE 08/19/2014 14 - Other: See Comments Comments: rapid hear beat ZANTAC (RANITIDINE HCL) 05/29/2016 2 - Rash 7 - Swelling surgical tape adhesives [Other] 08/31/2008 2 - Rash Date Reviewed: 02/28/2017 [facility]: [facility] - Fully Assessed Reason for Visit: PHMA/Care Gap Outreach [0394] Primary Visit Diagnosis:Screening mammogram, encounter for [Z12.31] Prescriptions as of 07/10/2017 Sig: METOPROLOL SUCCINATE ER 50 MG* Take 1 tablet by mouth once d* PREDNISOLONE ACETATE 1 % EYE * Please use for the right ear * AMOXICILLIN 500 MG TABLET Take 1 tablet by mouth twice * AZITHROMYCIN 250 MG TABLET Take 1 tablet by mouth once d* FUROSEMIDE 40 MG TABLET Uses when legs are swollen OMEPRAZOLE 20 MG CAPSULE,KASSANDRA* Take 1 capsule by mouth daily* MUPIROCIN 2 % TOPICAL CREAM Apply 1 application to affect* WARFARIN 1 MG TABLET Take 1 tablet by mouth daily * WARFARIN 2 MG TABLET Take 1 tablet by mouth daily * POTASSIUM CHLORIDE ER 10 MEQ * Take 1 tablet by mouth daily * MECLIZINE 25 MG TABLET Take 1 tablet by mouth every * SODIUM CHLORIDE 0.65 % NASAL * Use 2 Sprays in the nose ever* ONE-A-DAY 50 PLUS ORAL Take by mouth. VITAMIN D-3 ORAL Take 1,000 mg by mouth five t* XAGOAGE-QZYINYIIM-NIIG ORAL Take by mouth. TYLENOL ORAL Take 1 tablet by mouth as nee* Problem List As Of Date 07/10/2017 Noted Resolved PERSISTENT INSOMNIA [G47.00] INVALID FOR* More... MOSES'S ESOPHAGUS [K22.70] INVALID FOR* CALCULUS OF KIDNEY [N20.0] INVALID FOR* Irritable bowel syndrome [K58.9] INVALID FOR*01/10/2016 More... Tobacco use disorder [F17.200] INVALID FOR*01/10/2016 More... Pain in joint, shoulder region [M25.519] INVALID FOR*09/25/2015 ANXIETY GENERALIZED [F41.1] INVALID FOR*01/10/2016 Umbilical hernia without mention of obstruction*INVALID FOR*09/25/2015 Carpal tunnel syndrome, left [G56.02] INVALID FOR* Carpal tunnel syndrome, right [G56.01] INVALID FOR*01/10/2016 Right shoulder strain [S46.911A] INVALID FOR*09/25/2015 Tendonitis of shoulder, right [M75.81] INVALID FOR* Rotator cuff tear [M75.100] INVALID FOR* More... Hematuria [R31.9] INVALID FOR*09/25/2015 Smoking history [Z87.891] INVALID FOR* Hypertension [I10] INVALID FOR* More... Atrial fibrillation (HCC) [I48.91] INVALID FOR* More... Panlobular emphysema (HCC) [J43.1] INVALID FOR* More... Arthritis [M19.90] INVALID FOR* More... History of DVT (deep vein thrombosis) [Z86.718] INVALID FOR* Encounter for colonoscopy due to history of cony*INVALID FOR*11/22/2015 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 [K22.7*INVALID FOR*11/22/2015 S/P cervical spinal fusion [Z98.1] INVALID FOR* Encounter Status:Closed by MARY CAIN CMA on 07/10/17 OBSOLETE Observed: 06/09/2017 Status: COMPLETED Source: [place] 12:00 AM [facility] REPOSITORY Refill (INTMWS) ELIZABETH DELGADO ([id number]) 1945 [facility] Date Time Provider Department 06/09/17 MINERVA SHAVER INTCandeWS During your visit today, we recorded the following information about you: Felicitas Prince LPN 06/09/2017 2:04 PM Signed Patient has been identified by name and date of : Yes Patient phones for refill(s): Pending Prescriptions Disp Refills METOPROLOL SUCCINATE ER 50 MG TABLET,EXTENDED RELEASE 24 HR 90 tablet 3 Sig: Take 1 tablet by mouth once daily. MARQUES: No Date of last office visit in primary care: 02/07/2017 Last 2 Encounter Wt Readings: Date: Wt: 02/28/2017 64 kg (141 lb) 02/07/2017 64 kg (141 lb) Previous labs/tests for medication: Blood Pressure: BUN (mg/dL) Date Value 03/28/2017 18 Sodium (mmol/L) Date Value 03/28/2017 139 Last 1 Encounter BP Readings: Date: BP: 02/28/2017 150/64 Please advise. Thank you. Felicitas Prince LPN 06/10/2017 10:40 AM Signed The following approved medication requests have been transmitted electronically. Signed Prescriptions Disp Refills metoprolol succinate ER (TOPROL XL) 50 mg 24 hr tablet 90 tablet 3 Sig: Take 1 tablet by mouth once daily. MARQUES: No Authorizing Provider: MINERVA SHAVER LPN Allergies As of Date: 06/09/2017 Noted Allergy Reaction CARDIZEM (DILTIAZEM HCL) 01/18/2015 7 - Swelling CODEINE 01/21/2006 11 - Vomiting Comments: Ringing in Ears. ENTEX (PHENYLEPHRINE-GUAIFENESIN) 03/06/2007 2 - Rash ETODOLAC 07/06/2012 14 - Other: See Comments Comments: Heart palpitations MELOXICAM 05/25/2012 14 - Other: See Comments Comments: Heart palpitations NAPROXEN 01/29/2011 7 - Swelling Comments: Possible allergy? Pt relates to naproxen TRAZODONE 08/19/2014 14 - Other: See Comments Comments: rapid hear beat ZANTAC (RANITIDINE HCL) 05/29/2016 2 - Rash 7 - Swelling surgical tape adhesives [Other] 08/31/2008 2 - Rash Date Reviewed: 02/28/2017 Reviewed by: Yael ([facility]) Joann - Fully Assessed Reason for Visit: Refill Request [94] Order(s):metoprolol succinate ER (TOPROL XL) 50 mg 24 hr tabletTake 1 tablet by mouth once daily.Disp: 90 tabletRfl: 3 Prescriptions as of 06/09/2017 Sig: METOPROLOL SUCCINATE ER 50 MG* Take 1 tablet by mouth once d* PREDNISOLONE ACETATE 1 % EYE * Please use for the right ear * AMOXICILLIN 500 MG TABLET Take 1 tablet by mouth twice * AZITHROMYCIN 250 MG TABLET Take 1 tablet by mouth once d* FUROSEMIDE 40 MG TABLET Uses when legs are swollen OMEPRAZOLE 20 MG CAPSULE,KASSANDRA* Take 1 capsule by mouth daily* MUPIROCIN 2 % TOPICAL CREAM Apply 1 application to affect* WARFARIN 1 MG TABLET Take 1 tablet by mouth daily * WARFARIN 2 MG TABLET Take 1 tablet by mouth daily * POTASSIUM CHLORIDE ER 10 MEQ * Take 1 tablet by mouth daily * MECLIZINE 25 MG TABLET Take 1 tablet by mouth every * SODIUM CHLORIDE 0.65 % NASAL * Use 2 Sprays in the nose ever* ONE-A-DAY 50 PLUS ORAL Take by mouth. VITAMIN D-3 ORAL Take 1,000 mg by mouth five t* DMHGJKS-RKSOJATPA-QBWA ORAL Take by mouth. TYLENOL ORAL Take 1 tablet by mouth as nee* Problem List As Of Date 06/09/2017 Noted Resolved PERSISTENT INSOMNIA [G47.00] INVALID FOR* More... MOSES'S ESOPHAGUS [K22.70] INVALID FOR* CALCULUS OF KIDNEY [N20.0] INVALID FOR* Irritable bowel syndrome [K58.9] INVALID FOR*01/10/2016 More... Tobacco use disorder [F17.200] INVALID FOR*01/10/2016 More... Pain in joint, shoulder region [M25.519] INVALID FOR*09/25/2015 ANXIETY GENERALIZED [F41.1] INVALID FOR*01/10/2016 Umbilical hernia without mention of obstruction*INVALID FOR*09/25/2015 Carpal tunnel syndrome, left [G56.02] INVALID FOR* Carpal tunnel syndrome, right [G56.01] INVALID FOR*01/10/2016 Right shoulder strain [S46.911A] INVALID FOR*09/25/2015 Tendonitis of shoulder, right [M75.81] INVALID FOR* Rotator cuff tear [M75.100] INVALID FOR* More... Hematuria [R31.9] INVALID FOR*09/25/2015 Smoking history [Z87.891] INVALID FOR* Hypertension [I10] INVALID FOR* More... Atrial fibrillation (HCC) [I48.91] INVALID FOR* More... Panlobular emphysema (HCC) [J43.1] INVALID FOR* More... Arthritis [M19.90] INVALID FOR* More... History of DVT (deep vein thrombosis) [Z86.718] INVALID FOR* Encounter for colonoscopy due to history of cony*INVALID FOR*11/22/2015 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 [K22.7*INVALID FOR*11/22/2015 S/P cervical spinal fusion [Z98.1] INVALID FOR* Prescriptions ordered this encounter Disp Refills Start End METOPROLOL SUCCINATE ER 50 MG TABLET* 90 t* 3 06/09/2017 Route: ORAL Sig: Take 1 tablet by mouth once daily. Medications Discontinued During This Encounter metoprolol succinate ER (TOPROL XL) * 90 t* 3 02/07/2017 06/09/2017 Class: Med Update Route: ORAL Sig: Take 1 tablet by mouth once daily. Disc: Reason for discontinue is not on file. Encounter Status:Closed by FELICITAS PRINCE LPN on 06/10/17 ALLERGIES ALLERGIES DATE TYPE / CODE NAME / CODE REACTION SEVERITY SOURCE Drug diltiazem Swelling of Unknown [place] 8 Allergy/287579140( HCl/P317280063(R face and neck [facility] XNORM) Hospital Repository Drug hydrocodone Vomiting Unknown [place] 8 Allergy/072526733( bitartrate/F0000 [facility]) [address]14(RXNORM) Hospital Repository Drug morphine/V351980 Vomiting Unknown [place] 8 Allergy/202156865( 545(RXNORM) [facility] Repository Drug codeine/I9075789 Vomiting Unknown [place] 8 Allergy/210872200( 50(RXNORM) [facility] Repository Drug albuterol/V01941 Other Unknown [place] 8 Allergy/206482956( 1814(RXNORM) [facility] Repository Drug naproxen/P980549 Swelling (whole Unknown [place] 8 Allergy/566880435( 380(RXNORM) body) [facility] Drug adhesive/F894708 Rash Unknown [place] 8 Allergy/978664632( 245(RXNORM) [facility] Repository Drug amiodarone/F0060 Severe dyspnea SV [place] 8 Allergy/930814205( 50864(RXNORM) after taking PO [facility]) Amiodarone Hospital Repository DRUG RANITIDINE HCL RASH [place] 7 INGREDI/171437316( [facility] Main SNOMED CT) [place] Repository DRUG DILTIAZEM HCL SWELLING Med [place] 5 INGREDI/939000507( [facility] Main SNOMED CT) [place] Repository DRUG TRAZODONE OTHER: SEE Yves [place] 5 INGREDI/601881236( [facility] Main SNOMED CT) [place] Repository DRUG ETODOLAC OTHER: SEE Yves Richardson 3 INGREDI/377440261( [facility] Main SNOMED CT) [place] Repository DRUG MELOXICAM OTHER: SEE C [place] 3 INGREDI/326216972( Clinic Main SNOMED [facility]) [place] Repository DRUG NAPROXEN SWELLING Richardson 1 INGREDI/153117273( Clinic Main SNOMED [facility]) [place] Repository Miscellaneous OTHER RASH [place] 9 Allergy/564527821( Clinic Main SNOMED CT) [place] Repository DRUG/227746696(SNO PHENYLEPHRINE- RASH [place] [address]) AIFENESIN Clinic Main [place] Repository DRUG CODEINE Vomiting [place] 6 INGREDI/073820672( Clinic Main SNOMED CT) [place] Repository ENCOUNTERS ENCOUNTERS ADMIT/DISCHARGE ACCOUNT ADMITTING ENCOUNTER LOCATION SOURCE NUMBER CLASS 04/06/2018 [id number] Ambulatory BMSBuilding:Rashaun Guillermo MS.CF.[facility] Repository 04/06/2018 [id number] Ambulatory [facility] ing:[facility] Repository 03/17/2018/03/17/20 [id number] Ambulatory BMSBuilding:Rashaun Guillermo 18 MS.[facility] Repository 03/13/2018/03/16/20 [id number] Ambulatory [address] Main [place] Repository 03/02/2018/03/04/20 [id number] Ambulatory [address] Repository 01/26/2018/01/28/20 [id number] Ambulatory [address] [place] Repository 01/23/2018/01/28/20 [id number] Ambulatory [address] Main [place] Repository 12/11/2017/12/12/19 [id number] Ambulatory [address] Main [place] Repository 11/20/2017/11/21/19 [id number] Ambulatory [address] Main [place] Repository 11/20/2017/11/21/19 [id number] Ambulatory [address] Main [place] Repository 11/20/2017/11/21/19 [id number] Ambulatory [address] Main [place] Repository 11/19/2017/11/21/19 [id number] Ambulatory [address] Main [place] Repository 10/20/2017 [id number] Ambulatory [facility] Main [place] Repository 10/15/2017/10/16/19 [id number] Ambulatory [address] Main [place] Repository 10/14/2017/10/16/19 [id number] Ambulatory [address] Repository 09/08/2017/09/09/19 [id number] Ambulatory BMSBuilding:B [place] 18 [facility] Repository 09/03/2017 [id number] Ambulatory [facility] Repository PAYERS PAYERS ENCOUNTER GUARANTOR PAYER SUBSCRIBER SOURCE 04/06/2018 ELIZABETH L Primary ELIZABETH L [place] [id number] Insurance:NEMESIO ROSADOB: Community [place] [employer] [id number]: Repository [id number]: 330 [id number] [phone] () Date:1168-74-83AR [address] [place] [address] 79090ZI: 04/06/2018 Secondary NOT GIVENUNK [place] Insurance:SELF PAY [facility] Number: Effective Repository Date:2018-04-06 04/06/2018 ELIZABETH L Primary ELIZABETH L [place] [id number] Insurance:NEMESIO ROSADOB: Community [place] [employer] [id number] Number: Repository [id number]: 330 [id number] [phone] () Date:[id number] [place] [address] 29615WR: 04/06/2018 Secondary NOT GIVENUNK [place] Insurance:SELF PAY [facility] Number: Effective Repository Date:2018-03-17 03/17/2018 ELIZABETH L Primary ELIZABETH L [place] [id number] Insurance:NEMESIO DANNYB: Community [place] [employer] [id number] Number: Repository [id number]: 330 [id number] [phone] () Date:6176-85-32[address]X [id number] [place] [address] [id number]: 03/17/2018 Secondary NOT GIVENUNK [place] Insurance:SELF PAY [facility] Number: Effective Repository Date:2018-01-13 09/08/2017 ELIZABETH L Primary ELIZABETH L [place] [id number] Insurance:NEMESIO DANNYB: Community [place] [employer] [id number] Number: Repository [place] [address]Kpt: [id number] Date:8164-07-74YC [address] () [place], [place] [address]EH: 09/08/2017 Secondary NOT GIVENUNK [place] Insurance:SELF PAY [facility] Hospital Number: Effective Repository Date:2017-04-21 09/03/2017 Elizabeth L Primary Elizabeth Celsa [id number] Insurance:HOMETOGUILLERMINA Mitzi: [facility] [id number] [facility] [place] Rep[place] [address]Xad: 330) Number: [phone] () [id number] Date: [facility] [address]JX: 09/03/2017 Secondary NOT GIVENUNK [place] Insurance:SELF PAY [facility] Number: Effective Repository Date:2017-09-03
--- OUTSIDE RECORDS SUMMARY | 2018-05-19 13:53 | XMS RPT_ITS | Clinical Summary ---
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 Chronic 144738993 Active Erika Moody Chronic diastolic (SNOMED 05/23 05/[address]) 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 Hx of 232713751 Active Erika Moody Maze procedure pulmonary (SNOMED 09/19 09/19 [place] [address] atrial vein [address]) RN fibrillation isolation for atrial fib Paroxysmal 663561560 Active Erika Moody Paroxysmal atrial (SNOMED 05/23 05/[address]) RN fibrillation 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 Flores Castellon 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 Body Mass 619420925 Resolved Flores Castellon Finding of Index (SNOMED 01/06 01/06 NINI Monroe body mass 27.0-27.9, CT) index adult Family [id number] Resolved Flores Castellon Family history History of (SNOMED 01/20 NINI Monroe of stroke CVA or CT) Stroke High risk 737007524 Active Lilliana Mahmood Long-term drug meds long (SNOMED 06/15 06/[address]) Family [id number] Removed Susan Castellon Family history History of (SNOMED 01/20 Bubba, of stroke CVA or CT) PA-C Stroke Body mass Z68.28 Active Susan Castellon Body mass index (BMI) (ICD-10-CM 01/20 01/20 Bubba, index (BMI) 28.0-28.9, ) PA-C 28.0-28.9, adult adult Body Mass 955703598 Removed Susan Castellon Finding of Index (SNOMED 01/06 01/06 Bubba, body mass 27.0-27.9, CT) PA-C index adult CONGESTIVE 78104117 Inactive Flores Castellon Congestive HEART (SNOMED 05/23 05/23 NINI Monroe heart failure FAILURE CT) ATRIAL [id number] Inactive Flores Castellon Atrial FIBRILLATION (SNOMED 05/23 05/[address]) Medications Medication Instructions Start Stop Generic Name [facility] Provider Date Date COUMADIN 4 MG One tablet by WARFARIN SODIUM [id number] Stevenson Rees TABS mouth every RETAIL ASSOCIATE-C evening METOPROLOL One tablet by METOPROLOL 60403395855 Maxim S SUCCINATE ER 100 mouth daily /25 SUCCINATE MD Fred MG [id number] ELIQUIS 5 MG One tablet by APIXABAN [id number] [place] S TABS mouth twice MD Fred daily AMIODARONE HCL Two tablets by AMIODARONE HCL 83915180231 Jose Sood 200 MG TABS mouth MD Lawrence times daily X 3 days then One tablet by mouth twice daily ELIQUIS 5 MG One tablet by APIXABAN [id number] Susan Castellon TABS mouth twice / Mac, daily PA-C METOPROLOL One tablet by METOPROLOL 39595013954 Susan Castellon SUCCINATE ER 100 mouth daily /25 SUCCINATE Mac, MG [id number] PA-C ELIQUIS 5 MG One tablet by APIXABAN 20789204737 Maxim S TABS mouth twice MD Fred daily XARELTO 20 MG One tablet by RIVAROXABAN 30625567330 [place] S TABS mouth daily / MD Fred ASPIRIN 325 MG One tablet by ASPIRIN 09652011235 Maxim S TABS mouth daily / MD Fred ASPIRIN EC 81 MG One tablet by ASPIRIN 86566137314 Flores M TBEC mouth daily / NINI Monroe MULTIVITAMINS One tablet by MULTIPLE VITAMIN Flores M TABS mouth daily / NINI Monroe VITAMIN D 1000 One tablet by CHOLECALCIFEROL 84973923167 Flores M UNIT TABS mouth daily / Mabel, NINI ANTIVERT 25 MG As needed MECLIZINE HCL Flores M TABS / NINI Monroe MELATONIN 3 MG One tablet by MELATONIN [id number] Flores M TABS mouth at / NINI Monroe bedtime. As needed NASONEX 50 Take as MOMETASONE [id number] Flores M MCG/ACT SUSP FUROATE NINI Monroe VITAMIN B-12 500 One tablet by CYANOCOBALAMIN 96575598173 Flores M MCG TABS mouth daily / NINI Monroe OMEGA 3 CPDR One tablet by OMEGA-3 FATTY 78497661195 Flores M mouth daily / ACIDS CPDR NINI Monroe XARELTO 20 MG One tablet by RIVAROXABAN 50426992499 Lilliana Tee Ela TABS mouth daily /02/06 RN METOPROLOL Two tablets by METOPROLOL 02406318284 Susan Castellon SUCCINATE ER 50 mouth daily /25 SUCCINATE Mac, MG [id number] PA-C AMIODARONE HCL Two tablets by AMIODARONE HCL 55481926818 Lilliana A Ela 200 MG TABS mouth twice / RN daily X 1 week then One tablet by mouth daily ELIQUIS 5 MG One tablet by APIXABAN [id number] Flores M TABS mouth twice /10/02 NINI Monroe daily LASIX 40 MG TABS as needed for FUROSEMIDE 29777173261 [place] S LE edema / MD Fred AMIODARONE HCL Two tablets by AMIODARONE HCL 92384382392 Lilliana A Ela 200 MG TABS mouth three RN times daily X 3 days then One tablet by mouth twice daily AMIODARONE HCL Two tablets by AMIODARONE HCL 46952069661 Lilliana A Ela 200 MG TABS mouth three 06/18 RN times daily X 3 days then One tablet by mouth twice daily ASPIRIN 325 MG One tablet by ASPIRIN 45917546074 Lilliana A Lea TABS mouth daily /20 RN ASPIRIN 325 MG One tablet by ASPIRIN 48540353740 Flores M TABS mouth daily /05/14 [facility], RN LASIX 40 MG TABS as needed for FUROSEMIDE 27239666609 Lilliana A Ela LE edema / RN LASIX 40 MG TABS as needed for FUROSEMIDE 94375420311 Flores M LE edema /20 05/14 [place], RN OMEPRAZOLE 40 MG One tablet by OMEPRAZOLE 20931462872 Flores M CPDR mouth twice / [place], RN daily OMEPRAZOLE 40 MG One tablet by OMEPRAZOLE 59802280178 Flores M CPDR mouth twice /10/02 [place], RN daily METOPROLOL One tablet by METOPROLOL 30669895899 Erika K SUCCINATE ER 100 mouth daily / SUCCINATE Viet MG 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: MULTIVITAMINS One tablet MULTIPLE VITAMIN Erika K TABS by mouth Viet daily RN MULTIVITAMINS One tablet 201 MULTIPLE VITAMIN [place] S TABS by mouth 4/0 MD Fred daily 22 5 VITAMIN D 1000 One tablet CHOLECALCIFEROL 84506175676 Erika K UNIT TABS by mouth Viet daily RN VITAMIN D 1000 One tablet 201 CHOLECALCIFEROL 34865196270 Maxim S UNIT TABS by mouth 4/0 MD Fred daily 2/2 5 LASIX 40 MG TABS One tablet FUROSEMIDE 63215822895 Erika K by mouth Viet daily RN LASIX 40 MG TABS One tablet 201 FUROSEMIDE 58663843083 [place] S by mouth 4/0 MD Fred daily 2/2 5 PRADAXA 150 MG One tablet DABIGATRAN 80863600032 Erika K CAPS by mouth ETEXILATE Viet twice daily MESYLATE RN PRADAXA 150 MG One tablet 201 DABIGATRAN 54475252640 Susan Castellon CAPS by mouth 4/0 ETEXILATE Bubba, twice daily 12/11 MESYLATE PA-C 8 METOPROLOL one half METOPROLOL 04870299434 Susan Castellon SUCCINATE ER 100 daily SUCCINATE Mac, MG [id number] PA-C TRAZODONE HCL 50 nightly as TRAZODONE HCL 77338832437 Susan Castellon MG TABS needed Mac, PA-C TRAZODONE HCL 50 nightly as 201 TRAZODONE HCL 37494407623 Maxim S MG TABS needed 5/0 MD Fred / 0 ASPIRIN 81 MG One tablet ASPIRIN 68146868182 Susan Castellon TABS by mouth Bubba, daily PA-C ASPIRIN 81 MG One tablet 201 ASPIRIN 20876677671 [place] S TABS by mouth 5/0 MD Fred daily / 0 METOPROLOL One half METOPROLOL 89452862747 [place] S SUCCINATE ER 100 tablet by SUCCINATE MD Fred MG [id number] mouth daily OMEPRAZOLE 40 MG One tablet OMEPRAZOLE 11847252585 [place] S CPDR by mouth MD Fred daily as needed OMEPRAZOLE 40 MG One tablet 201 OMEPRAZOLE 38722419726 Susan Castellon CPDR by mouth 5/0 Mac, daily as 01/10 PA-C needed 1 FLONASE 50 Take as FLUTICASONE 52833312016 Susan Castellon MCG/ACT SUSP directed PROPIONATE Bubba, PA-C FLONASE 50 Take as 201 FLUTICASONE 91303654124 Susan Castellon MCG/ACT SUSP directed 5/0 PROPIONATE Bubba, 01/10 MARIANNE 1 Medications Administered No information available. 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 Dietary management education, guidance, and counseling (procedure) MEDS REVIEW Done Documentation of current medications (procedure) SMOK STATUS Former smoker Tobacco use [facility] Clinical Lists Update: Preload CARDEFECHO 70 [...] INTERVAL new path ms QT interval, electrocardiogram OH INTERVAL 0 ms OH interval, electrocardiogram EKGHRTRATE 137 BPM heart rate on electrocardiogram Plan of Care Type Date Detail Appointment 03:00 PM [address], [address], [place], [address], Appointment 03:45 PM Maxim Ibarra MD, [address], [address], [place], [address], Referral Cardiac Referral Ajay Hammond MD, [address], [address], [place], [address] Referral EPS Referral Nathan Mane, [facility], [address] [place] [address], [address] Referral EPS Referral Nathan Mane, [facility], [address] [place] [address], [address] Referral excluded from report: Pending order EKG (In office) Pending order *PT/INR - Standing Order Pending order MMM Pending order Follow Up Appt 3 months Pending order Pulmonary Function Test - complete Pending order AUTOMATION DRIVER Pending order Follow Up Appt 6 months Pending order EKG (In office) Pending order MMM Pending order Follow Up Appt 1 month Pending order Transesophageal echocardiogram (ARIS) Pending order Cardioversion Pending order MMM Pending order Follow Up Appt 6 months Pending order AUTOMATION DRIVER Pending order Follow Up Appt 6 months Pending order EKG (In office) Pending order MMM Pending order Follow Up Appt 6 months Pending order AUTOMATION DRIVER Pending order Follow Up Appt 3 months Procedures Code Procedure Name Date Entry Date CPT-70960 EKG (In office) Cardiac Referral Cardiac Referral EPS EPS Referral Order excluded from report: F/U MMM MMM FUA 3 months Follow Up Appt 3 months PFT Pulmonary Function Test - complete F/U AUTOMATION DRIVER AUTOMATION DRIVER FUA 6 months Follow Up Appt 6 months CPT-45763 EKG (In office) F/U MMM MMM FUA 1 month Follow Up Appt 1 month CV Cardioversion ARIS Transesophageal echocardiogram (ARIS) F/U MMM MMM FUA 6 months Follow Up Appt 6 months SCT-[id number] SNOMED-CT: [id number] Current Medications Documented F/U AUTOMATION DRIVER AUTOMATION DRIVER FUA 6 months Follow Up Appt 6 months F/U MMM MMM FUA 6 months Follow Up Appt 6 months CPT-76898 EKG (In office) F/U AUTOMATION DRIVER AUTOMATION DRIVER FUA 3 months Follow Up Appt 3 [...]
== END ==
PROVIDERS: Family Provider Internal Medicine; PCP Internal Medicine; Referring Provider Internal Medicine Cardiovascular Disease; Visit Provider Internal Medicine Cardiovascular Disease
DX: I48.0 Paroxysmal atrial fibrillation (principal)
CPT/HCPCS: 93306

== ENCOUNTER → 2018-09-29 13:51 | Outpatient (CLI) | payer MEDICARE, SELFPAY ==
[2018-09-14 15:23] VITALS: BMI 26.0
--- NOTE | 2018-09-29 13:54 | CDU_ITS ---
Reason For Study: Bruit Rt. Velocities/BP Lt. Velocities/BP Prox CCA 149.7/14.3 cm/sec. Prox CCA 84.4/14.5 cm/sec. Mid CCA 75.3/13.9 cm/sec. Mid CCA 75/21.2 cm/sec. Dist CCA 64.2/10.2 cm/sec. Dist CCA 61.9/11.3 cm/sec. Prox ICA 54.2/15.7 cm/sec. Prox ICA 66.2/19 cm/sec. Mid ICA 68.4/20.1 cm/sec. Mid ICA 113.8/29.8 cm/sec. Dist ICA 90.4/30 cm/sec. Dist ICA 84.6/22.5 cm/sec. Rt. ICA/CCA = 1.2. Lt. ICA/CCA = 1.5. Prox ECA 58.1/6.5 cm/sec. Prox ECA 56.4/3.6 cm/sec. Rt. Vert. 40.9/8.8 cm/sec. Lt. Vert. 54.2/17.9 cm/sec. Right Extracranial There is homogeneous, smooth atherosclerotic plaque noted in the right common carotid artery. There is homogeneous, smooth atherosclerotic plaque noted in the right internal carotid artery. There is no significant atherosclerotic plaque noted in the right external carotid artery. Antegrade flow is noted in the right vertebral artery. Left Extracranial There is homogeneous, smooth atherosclerotic plaque noted in the left common carotid artery. There is intimal thickening but no significant atherosclerotic plaque noted in the left internal carotid artery. The left internal carotid artery is very tortuous. There is no significant atherosclerotic plaque noted in the left external carotid artery. Antegrade flow is noted in the left vertebral artery. Procedure Carotid Duplex 31224. Exam performed in department. Interpretation Summary Minimal smooth plague right internal carotid with <50% stenosis. <50% stenosis right external carotid Intimal thickening left internal carotid with <50% stenosis. <50% stenosis left external carotid Patent and antegrade vertebrals bilaterally Ordering Physician: Susan Mac Referring Physician: Minerva Manley Performed By: Jessica Corral RVT
== END ==
PROVIDERS: Family Provider Internal Medicine; PCP Internal Medicine; Referring Provider Physician Assistant Medical; Visit Provider Physician Assistant Medical
DX: I48.0 Paroxysmal atrial fibrillation (principal); I43 Cardiomyopathy in diseases classified elsewhere; R09.89 Other specified symptoms and signs involving the circulatory and respiratory systems
CPT/HCPCS: 93880

== ENCOUNTER → 2018-10-27 12:35 | Outpatient (CLI) | payer MEDICARE, SELFPAY ==
[2018-09-14 15:23] VITALS: BMI 26.0
[2018-10-27 13:18] LABS: Absolute Lymphocyte Count 3.22 X10^3/ul (0.83-4.51); Absolute Neutrophil Count 3.3 X10^3/uL (2.0-7.7); Basophil# 0.01 X10^3/uL; Basophil% 0.1 % (0-1); Eosinophil# 0.15 X10^3/uL; Eosinophils% 2.1 % (0-5); Hematocrit 37.6 % (37-47); Hemoglobin 12.4 g/dl (12.0-15.0); Lymphocyte # 3.22 X10^3/ul (4.0); Mean Corpuscular Hgb 30.2 pg (27.0-32.0); Mean Corpuscular Volume 91.5 fL (81-99); Neutrophil # 3.28 X10^3/uL (2.7-7.7); Neutrophil % 45.8 % (47-70); POSITIVE COUNT NO; POSITIVE DIFFERENTIAL NO; POSITIVE MORPHOLOGY NO; Platelet Count 255 K/mm3 (150-450); RBC Distribution Width CV 12.7 % (11.6-14.6); RBC Distribution Width SD 42.2 fl (35.1-43.9); Red Blood Count 4.11 M/mm3 (4.2-5.4); White Blood Count 7.2 K/mm3 (4.4-11.0)
[2018-10-27 14:20] LABS: Anion Gap 8 (5-15); BUN 16 mg/dL (7-18); BUN/Creat Ratio 25.9 RATIO (10-20); Calcium,Total 8.8 mg/dL (8.5-10.1); Chloride 107 mmol/L (98-107); Creatinine, Serum 0.62 mg/dL (0.55-1.02); EST Glomerular Filtration Rate 101 mL/min (>60); Est Glom Filt Rate - Afr Amer 122 mL/min (>60); Glucose 94 mg/dL (74-106); Magnesium 2.1 mg/dL (1.6-2.6); Potassium 4.2 mmol/L (3.5-5.1); Sodium Level 144 mmol/L (136-145); Thyroid Stim Hormone (TSH) 2.17 uIU/mL (0.358-3.74)
== END ==
PROVIDERS: Family Provider Internal Medicine; PCP Internal Medicine; Referring Provider Physician Assistant Medical; Visit Provider Physician Assistant Medical
DX: I48.91 Unspecified atrial fibrillation (principal)
CPT/HCPCS: 36415; 80048; 83735; 84443; 85025

== ENCOUNTER 2018-10-31 18:29 | Inpatient (IN) | payer MEDICARE, SELFPAY ==
[2018-09-14 15:23] VITALS: BMI 26.0
[2018-10-31] VITALS (11 sets, daily range): BP systolic 147–155; BP diastolic 81–114; PULSE 73–138; RESP 16–23; TEMP 36.4–36.8; O2SAT 95–97; BMI 26.0; BMI 26.2
--- NOTE | 2018-10-31 18:33 | ED.RN ---
RN CALLED FOR EKG, PULLED OLD EKGS FOR
--- NOTE | 2018-10-31 18:46 | RAD_ITS ---
STUDY: X-RAY CHEST REASON FOR EXAM: Female, 73 years old. Chest pain TECHNIQUE: Frontal view of the chest was performed COMPARISON: 16 October 2016 FINDINGS: The lungs are clear and expanded. There is no demonstrated pleural abnormality. There is mild cardiomegaly with enlarged right heart border. Normal visualized thoracic spine. Normal visualized ribs, clavicles, and shoulders. There is prior cervical ACDF. There is no demonstrated abnormality of the visualized soft tissue structures of the upper abdomen. RAD/Chest 1 View (Portable) IMPRESSION: 1. No acute cardiorespiratory disease. 2. Mild cardiomegaly. Electronically Signed: Tony Tomas, at 19:06 EDT Tel , Service support ,
--- NOTE | 2018-10-31 18:46 | EKG12_ITS ---
Test Reason : CP ADMISSION Blood Pressure : / mmHG Vent. Rate : 104 BPM Atrial Rate : 127 BPM P-R Int : 000 ms QRS Dur : 082 ms QT Int : 358 ms P-R-T Axes : 000 007 172 degrees QTc Int : 470 ms Atrial fibrillation with rapid ventricular response Nonspecific ST and T wave abnormality Abnormal ECG When compared with ECG of 12-OCT-2016 00:06, Atrial fibrillation has replaced Sinus rhythm Vent. rate has increased BY 49 BPM Nonspecific T wave abnormality now evident in Anterolateral leads Confirmed by ROWDY HICKS, SELVIN ([id number]), editor map MARIANO GUERRERO ([id number]) on 11/03/2018 8:06:32 AM Referred By: Susan Mac Confirmed By:SELVIN RENO MD
--- NOTE | 2018-10-31 18:48 | ED.VISSUMM ---
- ER Visit Summary Date of Service: 10/31/18 Chief Complaint: Right upper chest pain, irregular heart rate History of Present Illness: The patient is a 73 F who has an irregular heart rhythm as well as chest pain. Is been ongoing for a couple of weeks. She follows with Dr. Ibarra. She has a history of cryoablation due to atrial fibrillation. She felt herself go into it a couple weeks ago. She went to his office and was started on Coumadin and increase her metoprolol to 50 mg twice daily. She has pain in the right upper chest which is worse when her heart rate gets high and better when her heart rate goes down. Denies any lightheadedness or dizziness. She admits to shortness of breath. She denies any falls. Physical Examination: Vital signs reviewed. HEENT exam unremarkable. Heart is irregularly irregular without any murmurs. Lungs are clear to auscultation bilaterally. Abdomen soft nontender. Extremities have trace pedal edema. Her neurologic exam is normal. Skin exam normal. Test Results: EKG is atrial fibrillation with a rate of 137. Nonspecific ST and T wave changes noted. Labs are unremarkable. INR 3.4. Chest x-ray reveals mild cardiomegaly with no other acute findings. Emergency Department Course and Treatment: The patient was given aspirin as well as 3 doses of 5 mg of metoprolol without any reduction of her heart rate. I then gave her digoxin. I spoke with Dr. Astudillo on-call for Dr. Ibarra. We cannot give the patient Cardizem due to her allergy. He recommended more beta-blockers. He would not recommend electrical cardioversion because she has been in this rhythm for 2 weeks. He states they may do a ARIS with cardioversion at a later date. Patient will be admitted to the hospital. Treatment Plan: [] Disposition: Admit Impression: A. fib with RVR, chest pain This note was generated with [employer] dictation software. It may contain incorrect words, spelling, and punctuation that were not noted in review of the chart prior to signing ED Disposition - Plan for ED Patient: Referrals: Minerva Manley MD [Primary Care Provider] -
[2018-10-31] MEDS: Aspirin 81 MG TAB.CHEW 324 MG PO (19:09)
[2018-10-31] MEDS: Metoprolol Tartrate 5 MG/5 ML Vial IV ×3 (19:10→19:46)
[2018-10-31 19:16] LABS: Absolute Lymphocyte Count 3.09 X10^3/ul (0.83-4.51); Absolute Neutrophil Count 4.4 X10^3/uL (2.0-7.7); Basophil# 0.01 X10^3/uL; Basophil% 0.1 % (0-1); Eosinophil# 0.11 X10^3/uL; Eosinophils% 1.3 % (0-5); Hematocrit 37.1 % (37-47); Hemoglobin 12.5 g/dl (12.0-15.0); Lymphocyte # 3.09 X10^3/ul (4.0); Lymphocyte % 37.2 % (19-41); Mean Corp Hgb Conc 33.7 g/gl (32-36); Mean Corpuscular Hgb 30.4 pg (27.0-32.0); Mean Corpuscular Volume 90.3 fL (81-99); Mean Platelet Vol. 10.2 fl (6.2-12.0); Monocyte# 0.64 X10^3/uL; Monocyte% 7.7 % (0-10); Neutrophil # 4.44 X10^3/uL (2.7-7.7); Neutrophil % 53.5 % (47-70); POSITIVE COUNT NO; POSITIVE DIFFERENTIAL NO; POSITIVE MORPHOLOGY NO; Platelet Count 248 K/mm3 (150-450); RBC Distribution Width CV 12.7 % (11.6-14.6); RBC Distribution Width SD 41.1 fl (35.1-43.9); Red Blood Count 4.11 M/mm3 (4.2-5.4); White Blood Count 8.3 K/mm3 (4.4-11.0)
[2018-10-31 19:23] LABS: International Normalized Ratio 3.4; Prothrombin Time (Protime)PT. 34.8 SECONDS (11.7-14.9)
[2018-10-31 19:41] LABS: Anion Gap 7 (5-15); BUN 19 mg/dL (7-18); BUN/Creat Ratio 27.4 RATIO (10-20); Calcium,Total 8.8 mg/dL (8.5-10.1); Chloride 110 mmol/L (98-107); Creatinine, Serum 0.69 mg/dL (0.55-1.02); EST Glomerular Filtration Rate 89 mL/min (>60); Est Glom Filt Rate - Afr Amer 107 mL/min (>60); Estimated Creatinine Clearance 38.94 ml/min; Glucose 106 mg/dL (74-106); Potassium 4.2 mmol/L (3.5-5.1); Sodium Level 142 mmol/L (136-145)
[2018-10-31] MEDS: Digoxin 250 MCG/ML Ampul IV (20:07)
--- NOTE | 2018-10-31 20:14 | HP.PCM_ITS ---
Problem List (1) Atrial fibrillation with RVR Status: Acute History of Present Illness Date of Admission: 10/31/18 Chief Complaint: shoulder pain, sob, palpitations. The patient is a 73 year old F with a significant history of atrial fibrillation status post cardioversion; and cryoablation; heart failure who presented to the emergency department with right-sided shoulder pain that radiates to her neck. Also she has pain at her bilateral shoulder blades. [place] that she has palpitations. Her symptoms of pain is brought on when she have these palpitations. Her watch also alert her about the same time that she is having elevated heart rate. Associated with her symptoms is nausea, vomiting, diaphoresis and shortness of breath. She also reports some bilateral feet edema that has been going on. 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) Cardiomyopathy in other diseases classified elsewhere (Chronic) Encounter for long-term current use of high risk medication (Chronic) Nonrheumatic aortic valve stenosis (Chronic) Non-rheumatic tricuspid valve insufficiency (Chronic) Acute cholecystitis (Chronic) GERD (gastroesophageal reflux disease) (Chronic) Scoliosis of cervical spine (Chronic) CHF (congestive heart failure) (Chronic) Atrial fibrillation (Chronic) Medical History: Medical History (Last Reviewed 10/31/18 @ 21:54 by Jovanni Celeste MD) Cardiomyopathy in other diseases classified elsewhere (Chronic) I43 Nonrheumatic aortic valve stenosis (Chronic) I35.0 Non-rheumatic tricuspid valve insufficiency (Chronic) I36.1 Acute cholecystitis (Chronic) K81.0 GERD (gastroesophageal reflux disease) (Chronic) K21.9 CHF (congestive heart failure) (Chronic) I50.9 Atrial fibrillation (Chronic) I48.91 Allergies diltiazem HCl [From Cardizem] Allergy (Verified 10/31/18 18:53) Swelling of face and neck naproxen Allergy (Verified 10/31/18 18:53) Swelling (whole body) amiodarone Adverse Reaction (Severe, Verified 10/31/18 18:53) Severe dyspnea after taking PO Amiodarone adhesive Adverse Reaction (Verified 10/31/18 18:53) Rash albuterol Adverse Reaction (Verified 10/31/18 18:53) Other codeine Adverse Reaction (Verified 10/31/18 18:53) Vomiting hydrocodone bitartrate [From Vicodin] Adverse Reaction (Verified 10/31/18 18:53) Vomiting morphine Adverse Reaction (Verified 10/31/18 18:53) Vomiting Home Medications: Ambulatory Orders Medication Instructions Recorded Multivitamins,Therapeutic 1 tab PO DAILY 03/15/13 [Multivitamin] Cholecalciferol (VIT D3) [Vitamin 1,000 unit PO DAILY 01/09/15 D3] Calcium Carbonate [Calcium] 500 mg PO DAILY 10/08/16 omega-3 fatty acids 1,000 mg 1,000 mg PO DAILY 03/17/18 capsule metoprolol succinate ER 50 mg 50 mg PO BID 90 Days #180 tab 10/27/18 tablet,extended release 24 hr warfarin 4 mg tablet 4 mg PO DAILY #90 tab 10/27/18 Surgical History: Surgical History (Last Reviewed 10/31/18 @ 21:54 by Jovanni Celeste MD) S/P bunionectomy (Resolved) Z98.890 H/O neck surgery (Resolved) Z98.890 ovarian surgery (Resolved) H/O hernia repair (Resolved) Z98.890, Z87.19 Hx of cholecystectomy Z90.49 Surgical History: - - cervical spinal surgery; surgery for ovarian cyst. 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 Sister No problems noted. Brother Wilsons disease Brother Wilsons disease History Items: - - mother at 69 Paternal Family History: Family History (Last Reviewed 10/31/18 @ 21:54 by Jovanni Celeste MD) Sister Afib Father CAD (coronary artery disease) Brother CVA (cerebral vascular accident) Mother No problems noted. Sister No problems noted. Brother Wilsons disease Brother Wilsons disease History Items: - - father with cad age 53 Sibling Family History: Family History (Last Reviewed 10/31/18 @ 21:54 by Jovanni Celeste MD) Sister Afib Father CAD (coronary artery disease) Brother CVA (cerebral vascular accident) Mother No problems noted. Sister No problems noted. Brother Wilsons disease Brother Wilsons disease History Items: - - afib in twin Review of Systems Constitutional: Denies: Chills, Fever, Weight Change HEENT: Denies: Head Aches, Sinus Congestion, Sinus Drainage Cardiovascular: Reports: Edema, Palpitations. Denies: Chest Pain Respiratory: Reports: Shortness of Breath. Denies: Cough Gastrointestinal: Reports: Nausea, Vomiting. Denies: Abdominal Pain Genitourinary: Denies: Dysuria Musculoskeletal: Reports: Neck Pain, Shoulder Pain. Denies: Joint Pain, Joint Tenderness Skin: Denies: Rash, Wounds Neurological: Denies: Numbness, Tingling, Focal weakness Psychiatric: Denies: Anxiety, Depression, Homicidal Ideations, Suicidal Ideations Hematologic/ Lymphatic: Denies: Easy Bruising, Easy Bleeding VTE Information - Inpt Only VTE Present on Admission: No VTE Mechan Device Prophylaxis: None VTE Pharm Prophylaxis ordered?: No Reason prophylaxis not ordered:: Treatment Not Indicated - Continue Coumadin for A. fib - Physical Exam General: Alert, Oriented x3, Cooperative, - - Patient in acute distress secondary to pain. HEENT: Atraumatic, PERRLA, EOMI, Normocephalic Neck: Supple, No JVD, Negative Carotid Bruits Lungs: Clear to auscultation, Normal air movement Cardiovascular: No murmurs, Irregular Rate, Tachycardic Abdomen: Bowel Sounds Present, Soft, Non Tender Extremities: Capillary Refill Less than 3 Seconds, Edema Skin: No rashes, No breakdown Musculoskeletal: No Tenderness to Palpation of Joints or Extremities Neurological: Cranial nerves II-XII grossly intact Psych/Mental Status: Normal Affect, Appropriate Vital Signs Temp Pulse Resp BP Pulse Ox 98.2 F 119 H 21 H 155/107 H 96 10/31/18 18:31 10/31/18 20:11 10/31/18 20:11 10/31/18 20:11 10/31/18 20:11 Oxygen Delivery Method Room Air Weight: 62.596 kg Body Mass Index (BMI) 26.0 Laboratory Tests Past 24 Hrs 10/31/18 10/31/18 10/31/18 18:55 19:00 19:00 WBC 8.3 RBC 4.11 L Hgb 12.5 Hct 37.1 MCV 90.3 MCH 30.4 MCHC 33.7 RDW 12.7 RDW Differential 41.1 Plt Count 248 MPV 10.2 Immature Gran % (Auto) 0.200 Neut % (Auto) 53.5 Lymph % (Auto) 37.2 [place] % (Auto) 7.7 Eos % (Auto) 1.3 Baso % (Auto) 0.1 Absolute Neuts (auto) 4.4 Absolute Lymphs (auto) 3.09 Total Counted Not Reportable PT 34.8 H INR 3.4 Sodium 142 Potassium 4.2 Chloride 110 H Carbon Dioxide 25.0 Anion Gap 7 BUN 19 H Creatinine 0.69 Estim Creat Clear Calc 38.94 Est GFR (MDRD) Af Amer 107 Est GFR (MDRD) Non-Af 89 BUN/Creatinine Ratio 27.4 H Glucose 106 Calcium 8.8 Troponin I < 0.015 Assessment/Plan All Active Problems (Last Reviewed 10/31/18 @ 21:54 by Jovanni Celeste MD) Left carotid bruit (Acute) S/P bunionectomy (Resolved) H/O neck surgery (Resolved) ovarian surgery (Resolved) H/O hernia repair (Resolved) Heart failure with preserved ejection fraction (Acute) Atrial fibrillation with RVR (Acute) The patient is a 73 year old F with a significant history of atrial fibrillation status post cardioversion; and cryoablation; heart failure who presented to the emergency department with symptoms consistent with probable symptomatic atrial fibrillation with RVR. Atrial fibrillation with RVR Admitted to PCU on telemetry Serial cardiac enzymes Her INR on admission was supratherapeutic at 3.4. Last time he took Coumadin was on 3 PM on the day of admission. She takes a 4 mg Coumadin 3 PM every day. We will give 3.5 mg next day. Check INR on 11/02/2018 if patient is still here. Her potassium is normal. Check magnesium. Chest x-ray showed no acute cardiopulmonary disease. Mild cardiomegaly. Chest x-ray was independently reviewed and agree with radiologist interpretation. Consult [facility], Dr. Astudillo who is on-call for Dr. Ibarra. We will keep patient n.p.o. after midnight for probable ARIS cardioversion. We will give aspirin for her chest pain. Continue metoprolol p.o. Patient received metoprolol IV at emergency department. We will continue metoprolol IV as needed. Patient received digoxin at emergency department. We will schedule 2 more doses of digoxin. Patient is allergic to morphine. She received fentanyl IV In the emergency department. Fentanyl IV PRN continued Congestive heart failure Heart failure with preserved ejection fraction. Review of records show that on echocardiogram 04/06/2018 patient had left ventricular ejection fraction of 55% with stage II diastolic dysfunction. Continue blood pressure control metoprolol. Hypertension On presentation her blood pressure was not within goal Metoprolol p.o. continued. Also patient stated on metoprolol IV as needed for A. fib with RVR. Trend blood pressure and adjust blood pressure medications. DVT prophylaxis Subcutaneous Lovenox Code Visit Inpatient E&M: 51175 Init Hosp L3
[2018-10-31] MEDS: fentaNYL 100 MCG/2 ML Ampul 50 MCG IV (20:50)
[2018-10-31] MEDS: Ondansetron 4 MG/2 ML Vial IV (21:31)
[2018-10-31 22:15] LABS: Magnesium 1.9 mg/dL (1.6-2.6)
--- NOTE | 2018-10-31 22:18 | EKG12_ITS ---
Test Reason : CP Blood Pressure : / mmHG Vent. Rate : 137 BPM Atrial Rate : 166 BPM P-R Int : 000 ms QRS Dur : 076 ms QT Int : 300 ms P-R-T Axes : 000 -05 -45 degrees QTc Int : 453 ms Atrial fibrillation with rapid ventricular response Nonspecific ST and T wave abnormality Abnormal ECG Confirmed by JANES VEE ([id number]), editor & co founder ALLEN HAMMONDS ([id number] on 11/05/2018 8:32:22 AM Referred By: Susan Mac Confirmed By:JANES VEE
[2018-10-31] MEDS: Mag Hydrox/Al Hydrox/Simeth 30 ML UDC PO (22:54)
[2018-11-01] VITALS (17 sets, daily range): BP systolic 139–180; BP diastolic 74–114; PULSE 69–151; RESP 16–20; TEMP 36.4–36.8; O2SAT 93–96
[2018-11-01] MEDS: Digoxin 250 MCG/ML Ampul 125 MCG IV ×2 (01:43→09:49)
[2018-11-01] MEDS: 0.9% NaCl Peripheral Flush Adult/Peds IV ×7 (01:43→15:25)
[2018-11-01] MEDS: Acetaminophen 325 MG Tablet 650 MG PO (01:58)
[2018-11-01] MEDS: HYDROmorphone 0.5 MG/0.5 ML SYRINGE IV (02:52)
[2018-11-01 03:06] LABS: Bedside Glucose 150 mg/dL (70-110)
[2018-11-01] MEDS: Aspirin 81 MG TAB.CHEW PO (09:49)
[2018-11-01] MEDS: Metoprolol(XL)Succ 50 MG Tablet PO (09:49)
[2018-11-01] MEDS: Ondansetron 4 MG/2 ML Vial IV (10:14)
[2018-11-01 11:18] LABS: AST(SGOT) 43 U/L (15-37); Alanine Aminotransfer ALT/SGPT 102 U/L (13-56); Albumin, Serum 3.5 g/dL (3.2-5.0); Alkaline Phosphatase 74 U/L (45-117); Bilirubin, Direct 0.12 mg/dL (0.00-0.30); Globulin 3.1 g/dL (2.2-4.2); Lipase 67 U/L (73-393); Protein, Total 6.6 g/dL (6.4-8.2)
--- NOTE | 2018-11-01 11:29 | PCM.CONS.C ---
Problem List (1) FDC (current) use of anticoagulants Status: Chronic (2) Atrial fibrillation with RVR Status: Acute Reason for Consult Date of Consultation: 11/01/18 Reason for Consultation: PAF History of Present Illness: The patient is a 73 year old F with history of paroxysmal atrial fibrillation, hypertension, cardiomyopathy with subsequent normalization of ejection fraction, most recent ejection fraction from March of last year was 55%, recently saw Dr. Ibarra in the office who prescribed her Coumadin, and increased her metoprolol to 50 mg twice daily. Usually her PAF episodes with last for few hours and resolve spontaneously, however this time and with the A. fib not resolving, she decided to come to the emergency room. She was in atrial fibrillation with rapid ventricular response, and was complaining about heart palpitations and right shoulder pain. She says every time the heart rate goes up she feels pain above her shoulder into her right neck. She denies any chest pain or chest discomfort. She has allergy to Cardizem, thus was given IV metoprolol and digoxin to slow down the heart rate. Currently she denies any heart palpitations, and only complains about nausea related to the fentanyl that she received last night for pain control. Her twelve-lead electrocardiogram revealed atrial fibrillation with rapid ventricular response, and ST-T wave changes. Her cardiac markers have been negative x3. [] Past Medical History Allergies/Adverse Reactions: Allergies diltiazem HCl [From Cardizem] Allergy (Verified 10/31/18 18:53) Swelling of face and neck naproxen Allergy (Verified 10/31/18 18:53) Swelling (whole body) amiodarone Adverse Reaction (Severe, Verified 10/31/18 18:53) Severe dyspnea after taking PO Amiodarone adhesive Adverse Reaction (Verified 10/31/18 18:53) Rash albuterol Adverse Reaction (Verified 10/31/18 18:53) Other codeine Adverse Reaction (Verified 10/31/18 18:53) Vomiting hydrocodone bitartrate [From Vicodin] Adverse Reaction (Verified 10/31/18 18:53) Vomiting morphine Adverse Reaction (Verified 10/31/18 18:53) Vomiting Home Medications: Ambulatory Orders Medication Instructions Recorded Multivitamins,Therapeutic 1 tab PO DAILY 03/15/13 [Multivitamin] Cholecalciferol (VIT D3) [Vitamin 1,000 unit PO DAILY 01/09/15 D3] Calcium Carbonate [Calcium] 500 mg PO DAILY 10/08/16 omega-3 fatty acids 1,000 mg 1,000 mg PO DAILY 03/17/18 capsule metoprolol succinate ER 50 mg 50 mg PO BID 90 Days #180 tab 10/27/18 tablet,extended release 24 hr warfarin 4 mg tablet 4 mg PO DAILY #90 tab 10/27/18 Past Medical History (Chronic Problems): Chronic Problems (Last Reviewed 10/31/18 @ 21:54 by Jovanni Celeste MD) FDC (current) use of anticoagulants (Chronic) Cardiomyopathy in other diseases classified elsewhere (Chronic) Encounter for long-term current use of high risk medication (Chronic) Nonrheumatic aortic valve stenosis (Chronic) Non-rheumatic tricuspid valve insufficiency (Chronic) Acute cholecystitis (Chronic) GERD (gastroesophageal reflux disease) (Chronic) Scoliosis of cervical spine (Chronic) CHF (congestive heart failure) (Chronic) Atrial fibrillation (Chronic) Surgical History: - - cervical spinal surgery; surgery for ovarian cyst. 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 Sister No problems noted. Brother Wilsons disease Brother Wilsons disease History Items: - - mother at 69 Paternal Family History: Family History (Last Reviewed 10/31/18 @ 21:54 by Jovanni Celeste MD) Sister Afib Father CAD (coronary artery disease) Brother CVA (cerebral vascular accident) Mother No problems noted. Sister No problems noted. Brother Wilsons disease Brother Wilsons disease History Items: - - father with cad age 53 Sibling Family History: Family History (Last Reviewed 10/31/18 @ 21:54 by Jovanni Celeste MD) Sister Afib Father CAD (coronary artery disease) Brother CVA (cerebral vascular accident) Mother No problems noted. Sister No problems noted. Brother Wilsons disease Brother Wilsons disease History Items: - - afib in twin Lives: Alone Smoking Status: Former smoker Review of Systems - Review of Systems General: Denies: Fever, Night Sweats, Fatigue Cardiovascular: Denies: Chest Discomfort, Shortness of Breath, Orthopnea, PND, Peripheral Edema, Palpitations, Lightheadedness, Dizziness, Near Syncope, Syncope Respiratory: Denies: Cough, Sputum Production, Hemoptysis Gastrointestinal: Reports: Nausea. Denies: Hematemesis, Hematochezia, Melena Genitourinary: Denies: Dysuria, Hematuria Skin: Denies: Rash Neurological: Denies: Dizziness, Vertigo Endocrine: Denies: Heat Intolerance Objective: Vital Signs Temp Pulse Resp BP Pulse Ox 97.6 F L 69 17 167/96 H 96 11/01/18 09:43 11/01/18 09:49 11/01/18 09:43 11/01/18 09:43 11/01/18 09:43 Oxygen Flow Rate (L/min) 2 Oxygen Delivery Method Nasal Cannula Weight: 138 lb 7.205 oz Body Mass Index (BMI) 26.2 Intake and Output for Last 24 Hours 10/30/18 10/31/18 11/01/18 23:59 23:59 23:59 Intake Total 60 / 60 Balance 60 / 60 General: Awake, Alert, Oriented x 3 HEENT: PERRL, EOMI, Sclera Non Icteric Neck: Supple, Good ROM, No Lymph Node Enlargement Lungs: Clear to auscultation Cardiovascular: Irregular Rhythm, Normal S2, No Murmurs, No Rubs, No Gallops Vascular: No Carotid Bruits, Normal Femoral Pulses, Normal Radial Pulses, Normal Dorsalis Pedal Pulse, Normal Posterior Tibial Pulses Abdomen: Bowel Sounds Present, Soft, Non Tender, No HSM, No Organomegaly Extremities: No Cyanosis, No Clubbing, No edema Musculoskeletal: - - The right shoulder is tender to touch, with ability to reproduce her symptoms. Neurological: No Focal Motor or Sensory Deficit 10/31/18 18:55: Sodium 142, Potassium 4.2, Chloride 110 H, Carbon Dioxide 25.0, Anion Gap 7, BUN 19 H, Creatinine 0.69, Est GFR (MDRD) Af Amer 107, Est GFR (MDRD) Non-Af 89, BUN/Creatinine Ratio 27.4 H, Glucose 106, Calcium 8.8, Troponin I < 0.015 10/31/18 18:55: Magnesium 1.9 10/31/18 19:00: WBC 8.3, RBC 4.11 L, Hgb 12.5, Hct 37.1, MCV 90.3, MCH 30.4, MCHC 33.7, RDW 12.7, RDW Differential 41.1, Plt Count 248, MPV 10.2, Immature Gran % (Auto) 0.200, Neut % (Auto) 53.5, Lymph % (Auto) 37.2, [place] % (Auto) 7.7, Eos % (Auto) 1.3, Baso % (Auto) 0.1, Absolute Neuts (auto) 4.4, Total Counted Not Reportable 10/31/18 19:00: PT 34.8 H, INR 3.4 10/31/18 22:20: Troponin I < 0.015 11/01/18 00:40: Troponin I < 0.015 11/01/18 00:40: Total Bilirubin 0.40, Direct Bilirubin 0.12 Rhythm: EKG: ECHO: Stress Test: Cardiac Cath: PCI: CT Surgery: Holter monitor: EPS: PPM: CXR: Chest CT Scan: Assessment/Plan Impression: 1. PAF with rapid ventricular response. Symptomatic. 2. Supratherapeutic INR. 3. History of cardiomyopathy, with subsequent normalization of ejection fraction. 4. History of angiographically normal coronary arteries over 5 years ago. 5. Right shoulder pain, with some tenderness to touch. 6. Hypertension 7. Allergic to Cardizem Plan: She has been persistently in atrial fibrillation since admission, and her heart rate has been controlled using IV metoprolol, p.o. metoprolol and some digoxin. She is allergic to Cardizem. Plan is to control heart rate using metoprolol and/or digoxin p.o. If heart rate is unable to be controlled, then consider ARIS guided cardioversion. She needs ischemia work-up in the form of a stress test down the road, considering her right shoulder pain which she associates with high heart rates. I am going to repeat a 2D echocardiogram since the last one was done in March of last year.
--- NOTE | 2018-11-01 12:15 | PN_ITS ---
<Tamica Coburn - Last Filed: 11/01/18 13:34> Subjective: Patient seen and examined. Currently having significant nausea and emesis. Reports she has right shoulder pain which she has had in the past with episodes of A. fib. Denies chest pain. Reports shortness of breath. - Physical Exam General: Alert, Oriented x3, Cooperative HEENT: Atraumatic, PERRLA, EOMI, Normocephalic Oral: Dry Mucosa Neck: Supple, No JVD, Negative Carotid Bruits Lungs: Clear to auscultation, Diminished Cardiovascular: - - Atrial fibrillation, tachycardic. Abdomen: Bowel Sounds Present, Soft, Non Tender, Non-Distended Extremities: No clubbing, No cyanosis, Edema - +1-2 bilateral lower extremities Skin: No rashes, No breakdown Musculoskeletal: No Tenderness to Palpation of Joints or Extremities Neurological: Cranial nerves II-XII grossly intact, Neuro grossly intact Psych/Mental Status: Normal Affect, Appropriate Vital Signs Temp Pulse Resp BP Pulse Ox 97.6 F L 69 17 167/96 H 96 11/01/18 09:43 11/01/18 09:49 11/01/18 09:43 11/01/18 09:43 11/01/18 09:43 Oxygen Flow Rate (L/min) 2 Oxygen Delivery Method Nasal Cannula Weight: 138 lb 7.205 oz Body Mass Index (BMI) 26.2 Intake and Output for Last 24 Hours 10/30/18 10/31/18 11/01/18 23:59 23:59 23:59 Intake Total 60 / 60 Balance 60 / 60 Laboratory Tests Past 24 Hrs 10/31/18 10/31/18 10/31/18 18:55 18:55 19:00 WBC 8.3 RBC 4.11 L Hgb 12.5 Hct 37.1 MCV 90.3 MCH 30.4 MCHC 33.7 RDW 12.7 RDW Differential 41.1 Plt Count 248 MPV 10.2 Immature Gran % (Auto) 0.200 Neut % (Auto) 53.5 Lymph % (Auto) 37.2 [place] % (Auto) 7.7 Eos % (Auto) 1.3 Baso % (Auto) 0.1 Absolute Neuts (auto) 4.4 Absolute Lymphs (auto) 3.09 Total Counted Not Reportable PT INR Sodium 142 Potassium 4.2 Chloride 110 H Carbon Dioxide 25.0 Anion Gap 7 BUN 19 H Creatinine 0.69 Estim Creat Clear Calc 38.94 Est GFR (MDRD) Af Amer 107 Est GFR (MDRD) Non-Af 89 BUN/Creatinine Ratio 27.4 H Glucose 106 Calcium 8.8 Magnesium 1.9 Total Bilirubin Direct Bilirubin AST ALT Alkaline Phosphatase Troponin I < 0.015 Total Protein Albumin Globulin Lipase 10/31/18 10/31/18 11/01/18 19:00 22:20 00:40 WBC RBC Hgb Hct MCV MCH MCHC RDW RDW Differential Plt Count MPV Immature Gran % (Auto) Neut % (Auto) Lymph % (Auto) [place] % (Auto) Eos % (Auto) Baso % (Auto) Absolute Neuts (auto) Absolute Lymphs (auto) Total Counted PT 34.8 H INR 3.4 Sodium Potassium Chloride Carbon Dioxide Anion Gap BUN Creatinine Estim Creat Clear Calc Est GFR (MDRD) Af Amer Est GFR (MDRD) Non-Af BUN/Creatinine Ratio Glucose Calcium Magnesium Total Bilirubin Direct Bilirubin AST ALT Alkaline Phosphatase Troponin I < 0.015 < 0.015 Total Protein Albumin Globulin Lipase 11/01/18 00:40 WBC RBC Hgb Hct MCV MCH MCHC RDW RDW Differential Plt Count MPV Immature Gran % (Auto) Neut % (Auto) Lymph % (Auto) [place] % (Auto) Eos % (Auto) Baso % (Auto) Absolute Neuts (auto) Absolute Lymphs (auto) Total Counted PT INR Sodium Potassium Chloride Carbon Dioxide Anion Gap BUN Creatinine Estim Creat Clear Calc Est GFR (MDRD) Af Amer Est GFR (MDRD) Non-Af BUN/Creatinine Ratio Glucose Calcium Magnesium Total Bilirubin 0.40 Direct Bilirubin 0.12 AST 43 H ALT 102 H Alkaline Phosphatase 74 Troponin I Total Protein 6.6 Albumin 3.5 Globulin 3.1 Lipase 67 L POC Glucose 11/01/18 02:58 POC Glucose 150 H Medical Necessity - Tobacco Use Smoking Status: Former smoker Assessment/Plan All Active Problems (Last Reviewed 10/31/18 @ 21:54 by Jovanni Celeste MD) Atrial fibrillation with RVR (Acute) 1. Paroxysmal atrial fibrillation with RVR-cardiology consulted. Heart rate better controlled with increased metoprolol regimen, 75 p.o. twice daily. Still remains mildly tachycardic. Possible ARIS cardioversion if heart rate unable to be controlled with medication. Allergy to Cardizem. Echocardiogram March 2018 with EF 55%, stage II diastolic dysfunction, mild to moderate mitral valve insufficiency, mild to moderate tricuspid valve insufficiency. Repeat echocardiogram ordered. Check TSH. Magnesium within normal limits. 2. Right shoulder pain-patient reports she has had similar pain with prior episodes of atrial fibrillation in the past. Troponin negative. Patient may require stress test following resolve of #1. 3. Supratherapeutic INR-hold Coumadin, trend INR. 4. Suspected mild acute on chronic diastolic CHF-patient wearing 2 L of oxygen. Not noted to be hypoxic prior. CXR without acute process. +1-2 pitting bilateral lower extremities. BNP 450. IV lasix 40mg X1. Repeat echo ordered as noted above. 5. Elevated LFTs-appears chronic. Unclear etiology. 6. Hypertension-blood pressure above goal. Continue metoprolol regimen. PRN hydralazine for systolic blood pressure greater than 160. Consider adding additional oral agent. DVT prophylaxis-Coumadin, supratherapeutic INR. This patient was seen by DANYA Borjas under the supervision of Dr. Hartman. <Omar Hartman E - Last Filed: 11/01/18 15:06> - Physical Exam Vital Signs Temp Pulse Resp BP Pulse Ox 97.6 F L 101 H 17 167/96 H 96 11/01/18 09:43 11/01/18 11:27 11/01/18 09:43 11/01/18 09:43 11/01/18 09:43 Oxygen Flow Rate (L/min) 2 Oxygen Delivery Method Nasal Cannula Weight: 138 lb 7.205 oz Body Mass Index (BMI) 26.2 Intake and Output for Last 24 Hours 10/30/18 10/31/18 11/01/18 23:59 23:59 23:59 Intake Total 60 / 60 250 / 250 Balance 60 / 60 250 / 250 Laboratory Tests Past 24 Hrs 10/31/18 10/31/18 10/31/18 18:55 18:55 18:55 WBC RBC Hgb Hct MCV MCH MCHC RDW RDW Differential Plt Count MPV Immature Gran % (Auto) Neut % (Auto) Lymph % (Auto) [place] % (Auto) Eos % (Auto) Baso % (Auto) Absolute Neuts (auto) Absolute Lymphs (auto) Total Counted PT INR Sodium 142 Potassium 4.2 Chloride 110 H Carbon Dioxide 25.0 Anion Gap 7 BUN 19 H Creatinine 0.69 Estim Creat Clear Calc 38.94 Est GFR (MDRD) Af Amer 107 Est GFR (MDRD) Non-Af 89 BUN/Creatinine Ratio 27.4 H Glucose 106 Calcium 8.8 Magnesium 1.9 Total Bilirubin Direct Bilirubin AST ALT Alkaline Phosphatase Troponin I < 0.015 B-Natriuretic Peptide 449.3 H Total Protein Albumin Globulin Lipase TSH 10/31/18 10/31/18 10/31/18 19:00 19:00 22:20 WBC 8.3 RBC 4.11 L Hgb 12.5 Hct 37.1 MCV 90.3 MCH 30.4 MCHC 33.7 RDW 12.7 RDW Differential 41.1 Plt Count 248 MPV 10.2 Immature Gran % (Auto) 0.200 Neut % (Auto) 53.5 Lymph % (Auto) 37.2 [place] % (Auto) 7.7 Eos % (Auto) 1.3 Baso % (Auto) 0.1 Absolute Neuts (auto) 4.4 Absolute Lymphs (auto) 3.09 Total Counted Not Reportable PT 34.8 H INR 3.4 Sodium Potassium Chloride Carbon Dioxide Anion Gap BUN Creatinine Estim Creat Clear Calc Est GFR (MDRD) Af Amer Est GFR (MDRD) Non-Af BUN/Creatinine Ratio Glucose Calcium Magnesium Total Bilirubin Direct Bilirubin AST ALT Alkaline Phosphatase Troponin I < 0.015 B-Natriuretic Peptide Total Protein Albumin Globulin Lipase TSH 11/01/18 11/01/18 11/01/18 00:40 00:40 00:40 WBC RBC Hgb Hct MCV MCH MCHC RDW RDW Differential Plt Count MPV Immature Gran % (Auto) Neut % (Auto) Lymph % (Auto) [place] % (Auto) Eos % (Auto) Baso % (Auto) Absolute Neuts (auto) Absolute Lymphs (auto) Total Counted PT INR Sodium Potassium Chloride Carbon Dioxide Anion Gap BUN Creatinine Estim Creat Clear Calc Est GFR (MDRD) Af Amer Est GFR (MDRD) Non-Af BUN/Creatinine Ratio Glucose Calcium Magnesium Total Bilirubin 0.40 Direct Bilirubin 0.12 AST 43 H ALT 102 H Alkaline Phosphatase 74 Troponin I < 0.015 B-Natriuretic Peptide Total Protein 6.6 Albumin 3.5 Globulin 3.1 Lipase 67 L TSH 1.91 POC Glucose 11/01/18 02:58 POC Glucose 150 H Assessment/Plan Hospitalist note: I am seeing this patient in conjunction with Tamica Coburn. I independently seen and examined the patient. Progress note above, laboratory data and imaging studies reviewed and I concur with the above treatment plan. Patient seen and examined. She still complaining of right shoulder pain, started having nausea and vomiting after she received 1 dose of IV fentanyl. She reported mild shortness of breath. Denied chest pain. She is afebrile, heart rate is down to around 100, blood pressure elevated, pulse ox is 96% on 2 L. - Physical Exam General: Alert, Oriented x3, Cooperative, distressed because of the nausea and vomiting. HEENT: Atraumatic, PERRLA, EOMI. Neck: Supple, No JVD, Negative Carotid Bruits, Trachea Midline, Thyroid Normal. Lungs: Clear to auscultation, diminished breath sounds bilateral, normal air movement, No rhonchi, No wheeze, No rales. Cardiovascular: irregular rate and rhythm rhythm, tachycardia, normal S1, Normal S2, PMI Normal. Abdomen: Bowel Sounds Present, Soft, Non Tender, Non-Distended, No Hepato- splenomegaly. Extremities: No clubbing, No cyanosis, No edema Skin: No rashes, No breakdown Neurological: Cranial nerves are intact. Neuro grossly intact Assessment and plan: #1 A. fib with RVR: With history of paroxysmal A. fib. EKG on admission revealed A. fib, rate is around 140s. She has been on metoprolol, increased dose. Rate is down to 100 but still in A. fib. Cardiology consulted, recommended to control the rate by metoprolol and digoxin. Patient is allergic to Cardizem. Her serum electrolytes are normal. INR is 2.4. She was on Coumadin. EKG revealed no acute ischemic changes. Troponin is negative x3. Plan to continue rate control by medication, if we are not able to control her heart rate by medication, patient will be considered for ARIS and cardioversion according to cardiology. #2 right shoulder pain: Chronic, patient mentioned that she has been having this pain whenever she has A. fib with RVR. Cardiology recommending stress test in the near future as outpatient. #3 probable mild acute on chronic diastolic CHF: Patient reported shortness of breath, on oxygen. BNP is elevated. 2D echocardiogram ordered. She received 1 dose of IV Lasix 40 mg x 1. #4 other chronic medical problems: Stable, continue current medications as above. This note was generated with [employer] dictation software. It may contain incorrect words, spelling, and punctuation that were not noted in checking the note before signing. Code Visit Inpatient E&M: 19719 Subs Hosp L2
[2018-11-01 13:13] LABS: BNP,B-Type NATRIURETIC PEPTIDE 449.3 pg/mL (0-100)
[2018-11-01 14:28] LABS: Thyroid Stim Hormone (TSH) 1.91 uIU/mL (0.358-3.74)
[2018-11-01] MEDS: proMETHazine 25 MG/ML Syringe 6.25 MG IV (15:11)
[2018-11-01] MEDS: Furosemide 40 MG/4 ML Vial IV (15:11)
[2018-11-01] MEDS: oxyCODONE 5 MG Tablet PO (15:28)
[2018-11-01] MEDS: Metoprolol(XL)Succ 25 MG Tablet 75 MG PO (21:34)
[2018-11-02] VITALS (20 sets, daily range): BP systolic 99–150; BP diastolic 58–99; PULSE 44–124; RESP 16–18; TEMP 36.5–36.9; O2SAT 90–99
[2018-11-02 06:15] LABS: International Normalized Ratio 4.3
--- NOTE | 2018-11-02 06:51 | PCM.PN.BLA ---
Progress Note Notified of INR of 4.3. From my perspective no Coumadin will be ordered for today, 11-02-18 based on elevated INR. Will order INR for 11-03-18. Rounding attending to further manage.
--- NOTE | 2018-11-02 08:23 | ECHOTEE_ITS ---
Reason For Study: Afib/Flutter Medication ARIS probe passed with minimal difficulty. No complications were noted. Cetacaine Topical [place] given X3 orally. Versed 2 mg given slow IVP. Performed a rapid injection of agitated mix of 9 cc saline and 1cc air to assess for atrial septal defect. Left Ventricle Normal LV size. The estimated ejection fraction is 50 %. No regional wall motion abnormalities noted. Right Ventricle Normal RV size. Normal systolic function. Atria Normal atrial septum. The left atrium is moderately enlarged. No thrombus is detected in the left atrial appendage. Normal right atrium. Mitral Valve Normal mitral valve. Mild-Moderate (1-2+) eccentric mitral valve insufficiency. Tricuspid Valve Normal tricuspid valve. Mild to moderate (1-2+) tricuspid valve insufficiency. Aortic Valve Trisinus/trileaflet aortic valve. Pulmonic Valve Normal pulmonic valve. Vessels Normal aortic root. Normal arch. The pulmonary artery is normal size. Pericardium No pericardial effusion. Interpretation Summary Normal LV size. The estimated ejection fraction is 50 %. No regional wall motion abnormalities noted. The left atrium is moderately enlarged. No thrombus is detected in the left atrial appendage. Mild-Moderate (1-2+) eccentric mitral valve insufficiency. Ordering Physician: Maxim Ibarra Performed By: Fritz Lara RCS
--- NOTE | 2018-11-02 08:23 | EKG12_ITS ---
Test Reason : Blood Pressure : / mmHG Vent. Rate : 105 BPM Atrial Rate : 113 BPM P-R Int : 000 ms QRS Dur : 074 ms QT Int : 344 ms P-R-T Axes : 000 003 217 degrees QTc Int : 454 ms Atrial fibrillation with rapid ventricular response ST & T wave abnormality, consider anterolateral ischemia Abnormal ECG Confirmed by MAY HICKS, JOSE ([id number]), story editor MARIANO GUERRERO ([id number]) on 11/04/2018 8:16:53 AM Referred By: Susan Mac Confirmed By:JOSE OLVERA MD
[2018-11-02] MEDS: Aspirin 81 MG TAB.CHEW PO (08:28)
[2018-11-02] MEDS: Acetaminophen 325 MG Tablet 650 MG PO (08:28)
--- NOTE | 2018-11-02 08:34 | PN.CARD_ITS ---
Subjectve: Patient seen and evaluated. Appears to be doing better this morning. Does not feel the irregular heartbeat Objective: Vital Signs Temp Pulse Resp BP Pulse Ox 98.4 F 80 18 144/95 H 95 11/02/18 08:20 11/02/18 08:20 11/02/18 08:20 11/02/18 08:20 11/02/18 08:20 Oxygen Flow Rate (L/min) 2 Oxygen Delivery Method Nasal Cannula Weight: 138 lb 7.205 oz Body Mass Index (BMI) 26.2 Intake and Output for Last 24 Hours 10/31/18 11/01/18 11/02/18 23:59 23:59 23:59 Intake Total 60 / 60 1095 / 1095 60 / 60 Output Total 300 / 300 200 / 200 Balance 60 / 60 795 / 795 -140 / -140 General: Awake, Alert, Oriented x 3 HEENT: PERRL, EOMI, Sclera Non Icteric Neck: Supple, Good ROM, No Lymph Node Enlargement Lungs: Clear to auscultation Cardiovascular: Irregular Rhythm, Normal S1, Normal S2, No Murmurs, No Rubs, No Gallops Vascular: No Carotid Bruits, Normal Femoral Pulses, Normal Radial Pulses, Normal Dorsalis Pedal Pulse, Normal Posterior Tibial Pulses Abdomen: Bowel Sounds Present, Soft, Non Tender, No HSM, No Organomegaly Extremities: No Cyanosis, No Clubbing, No edema Musculoskeletal: No Erythema Skin: No Rashes Lymphatic: No Lymph Node Enlargement Neurological: No Focal Motor or Sensory Deficit Psych/Mental Status: Appropriate 10/31/18 18:55: B-Natriuretic Peptide 449.3 H 11/01/18 00:40: Total Bilirubin 0.40, Direct Bilirubin 0.12 11/02/18 05:24: PT 42.0 H, INR 4.3 H* Rhythm: EKG: ECHO: Stress Test: Cardiac Cath: PCI: CT Surgery: Holter monitor: EPS: PPM: CXR: Chest CT Scan: Medical Necessity - Tobacco Use Smoking Status: Former smoker Assessment/Plan 1. Atrial fibrillation * Patient presents with fairly recent atrial fibrillation with rapid ventricular response rate. Her ventricular response rate appears to be decent at this time. She has been anticoagulated but for less than 3 weeks. My recommendation would therefore be for us to consider her for a transesophageal guided cardioversion. The risk benefits alternatives have been explained to her she understands and agrees to proceed and this would be undertaken later today. * 2. Cardiomyopathy * This has resolved. Will reevaluate echocardiogram today. * * * Addendum: Patient underwent a transesophageal echocardiogram today which demonstrated no evidence of left atrial appendage thrombus. Moderate mitral regurgitation was noted. The patient then subsequently underwent DC cardioversion and converted to sinus rhythm. The plan will be to observe the patient for a few hours if he is maintaining sinus rhythm to discharge for outpatient follow-up. Continue anticoagulation. * Thank you for allowing me to participate in the care of your patient. Please don't hesitate to call if any issues arise
--- NOTE | 2018-11-02 10:34 | CASEMGMT ---
NINI AHUMADA assessment: Face to Face with patient for initial transition planning/care coordination assessment. NINI AHUMADA introduced self and role at [facility], pt voices understanding and consents to assessment at this time. Pt is sitting up in chair in no distress at this time. Pt is A/Ox4 at this time and answers all questions appropriately at this time. Care providers, pharmacy, and demographics verified at this time. PCP: Sindhu Specialists: Fred Melgoza Pharmacy: [facility] Insurance: [facility] Living Will/HPOA: Pt states does not have LW/HPOA and declines info at this time. LNOK: Usha Noe, sister Living Arrangements: Pt states lives alone in 1 story home and states no concerns at home at this time. Pt is independent with ADL's. Transportation: Pt states drives self and states no transportation concerns at this time. DME/HHC: Pt states no current DME or need for any at this time. Pt states no hx of HHC or SNF in the past. Pt states no concerns with going home at time of discharge. 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 Pt states does not smoke or drink ETOH. Pt states no further questions/concerns/needs at this time. CM to follow for any further discharge planning/needs. Advised pt to ask for CM if any further questions/concerns/needs arise, voices understanding. Pt Goal: Home Plan[place] NINI AHUMADA
--- NOTE | 2018-11-02 12:20 | CARDIOVERS ---
Cardioversion Cardioversion: DC cardioversion. 73-year-old lady with a history of atrial fibrillation. Patient was noted to be anticoagulated per regimen with oral Coumadin. Patient's INR was noted to be therapeutic. The patient underwent a transesophageal echocardiogram this morning which demonstrated no evidence of left atrial appendage thrombus. The patient was then brought back seen by Dr. Ortiz of the critical care division and informed consent obtained. Anterior-posterior pads were applied. 200 J of synchronized DC cardioversion energy were applied after administration of 40 mg of intravenous propofol. Patient converted back to sinus rhythm tolerated the procedure well. Postoperative EKG demonstrated sinus bradycardia with a rate of 48 bpm. Conclusion: Normal sinus rhythm adventism after DC cardioversion Continue anticoagulation with Coumadin
--- NOTE | 2018-11-02 12:29 | EKG12_ITS ---
Test Reason : POST DCCV Blood Pressure : / mmHG Vent. Rate : 049 BPM Atrial Rate : 049 BPM P-R Int : 132 ms QRS Dur : 080 ms QT Int : 412 ms P-R-T Axes : 056 -02 028 degrees QTc Int : 372 ms Marked sinus bradycardia with Premature supraventricular complexes Nonspecific ST abnormality Abnormal ECG Confirmed by MAY HICKS, JOSE ([id number]), general expeditor ROBERT DELGADO ([id number]) on 11/19/2018 12:01:53 PM Referred By: Susan Mac Confirmed By:JOSE OLVERA MD
--- NOTE | 2018-11-02 12:30 | NURSING ---
return from RAIS/cardioversion, lab aid staff in attendance
--- NOTE | 2018-11-02 12:43 | PCM.OP.PRO ---
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 (2) Cardiomyopathy in other diseases classified elsewhere Status: Chronic (3) Nonrheumatic aortic valve stenosis Status: Chronic (4) Non-rheumatic tricuspid valve insufficiency Status: Chronic (5) GERD (gastroesophageal reflux disease) Status: Chronic (6) Scoliosis of cervical spine Status: Chronic (7) CHF (congestive heart failure) Status: Chronic (8) Atrial fibrillation Status: Chronic Qualifiers: Atrial fibrillation type: paroxysmal Qualified Code(s): I48.0 - Paroxysmal atrial fibrillation (9) Atrial fibrillation with RVR Status: Acute Procedure Report Date of Procedure: 11/02/18 - Conscious sedation CONSCIOUS SEDATION REPORT BRIEF HISTORY OF PRESENT ILLNESS: The patient is a 73-year-old female who presented to [facility] for an elective outpatient cardioversion due to underlying atrial fibrillation. The patient reports no PO intake since midnight. The patient does not have a history of obstructive sleep apnea. The patient reports a history of smoking and COPD. The patient denies any recent constitutional symptoms such as fevers, chills, nausea or vomiting. The patient denies previous anesthetic complications. Patient did have a ARIS just prior to cardioversion and 2 mg of Versed were used. Patient's INR was 4.3. No clots noted on ARIS. Last known ejection fraction of 55%. PHYSICAL EXAMINATION: VITAL SIGNS: Reviewed and were acceptable. GENERAL: The patient is a female, in no apparent distress, speaking in full sentences. HEENT: Normocephalic, atraumatic. Mucous membranes are moist and pink. Good mouth opening noted. Trachea is midline. Good neck mobility. MP III CHEST: S1, S2 irregularly irregular. No murmurs, rubs or gallops were noted. LUNGS: Clear to auscultation bilaterally without appreciable wheezes, rales or rhonchi. ABDOMEN: Soft, nontender, nondistended. Positive bowel sounds. EXTREMITIES: There is no clubbing, cyanosis or edema. ASA Class: II DESCRIPTION OF PROCEDURE: After confirmation of informed consent, the patient's anesthesia plan was reviewed in detail. Propofol was chosen. Risks and benefits were reviewed and the patient agreed to proceed. At 12:17 PM, the patient was given 40 mg of propofol. The patient achieved an appropriate level of sedation and received 1 attempt synchronized cardioversion, at [address] Ibarra at the bedside. This was successful in achieving normal sinus rhythm. The patient was noted to be sinus bradycardia, but blood pressure was adequate at 110/79. The patient was monitored until 12:23 PM, at which time the patient reached their baseline mental status and function. The patient tolerated the procedure well. COMPLICATIONS: None ESTIMATED BLOOD LOSS: None RECOMMENDATIONS: Okay to recover in usual fashion. Code Visit 9xxxx: Other Procedure See Report - [id number] -6 minutes conscious sedation
--- NOTE | 2018-11-02 13:03 | PCM.DC ---
You will use the following diet at home:: Cardiac Discharge Activity: Return to Normal Activity Call your doctor if you observe: Shortness of breath, Dizziness, Fainting spells, Chest pain, Increased palpitations (irregular heartbeat) Additional Instructions: Toprol XL daily dose is 75mg. There is not a 75 mg tablet so you will take a 50 mg and 25 mg tablet together in the morning. Allergies/Adverse Reactions: Allergies diltiazem HCl [From Cardizem] Allergy (Verified 10/31/18 18:53) Swelling of face and neck naproxen Allergy (Verified 10/31/18 18:53) Swelling (whole body) amiodarone Adverse Reaction (Severe, Verified 10/31/18 18:53) Severe dyspnea after taking PO Amiodarone adhesive Adverse Reaction (Verified 10/31/18 18:53) Rash albuterol Adverse Reaction (Verified 10/31/18 18:53) Other codeine Adverse Reaction (Verified 10/31/18 18:53) Vomiting hydrocodone bitartrate [From Vicodin] Adverse Reaction (Verified 10/31/18 18:53) Vomiting morphine Adverse Reaction (Verified 10/31/18 18:53) Vomiting Medications to take at Discharge Multivitamins,Therapeutic [Multivitamin] 1 tab PO DAILY 03/15/13 Cholecalciferol (VIT D3) [Vitamin D3] 1,000 unit PO DAILY 01/09/15 Calcium Carbonate [Calcium] 500 mg PO DAILY 10/08/16 omega-3 fatty acids 1,000 mg capsule 1,000 mg PO DAILY 03/17/18 Furosemide [Lasix] 40 mg PO DAILY #60 tab 11/02/18 Metoprolol(XL)Succ [Toprol Xl (Beta Neeraj)] 25 mg PO DAILY #60 tab 11/02/18 Metoprolol(XL)Succ [Toprol Xl (Beta Neeraj)] 50 mg PO DAILY #60 tab 11/02/18 Potassium Chloride [K-Dur] 20 meq PO DAILYCM #30 tab 11/02/18 Warfarin [Coumadin ([facility])] 3 mg PO DAILY #30 tab 11/02/18 The following prescriptions were given: Warfarin [Coumadin ([facility])] 3 mg PO DAILY #30 tab Transmission Status: Pending to [facility] #30 Potassium Chloride [K-Dur] 20 meq PO DAILYCM #30 tab Transmission Status: Pending to [facility] #30 Furosemide [Lasix] 40 mg PO DAILY #60 tab Transmission Status: Pending to [facility] #30 Metoprolol(XL)Succ [Toprol Xl (Beta Neeraj)] 25 mg PO DAILY #60 tab Transmission Status: Pending to [facility] [facility] #30 Metoprolol(XL)Succ [Toprol Xl (Beta Neeraj)] 50 mg PO DAILY #60 tab Transmission Status: Pending to [facility] #30 Primary Care Physician: Minerva Manley MD [Primary Care Provider] - Please follow up with your Primary Care Physician in: 1 Week Test Results: Test results from this visit will be discussed in further detail at your follow-up appointment, if applicable. Please Follow Up With: Maxim Ibarra MD When: 1 Week, nurse visit for EKG and INR check- Call office Proposed Discharge Date: 11/02/18
--- NOTE | 2018-11-02 13:10 | PCM.DC.SUM ---
Discharge Date and Diagnosis Date of Admission: 10/31/18 Date of Discharge: 11/02/18 - Primary Discharge Diagnosis 1. Paroxysmal atrial fibrillation with RVR status post successful cardioversion 2. Right shoulder pain-ACS ruled out. 3. Supratherapeutic INR 4. Mild acute on chronic diastolic CHF 5. Elevated LFTs-appears chronic. 6. 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 Astudillo/Dr. Ibarra- Cardiology. Operations: None Procedures: Cardioversion, Transesophageal Echo Summary of Care Provided: The patient is a 73 year old F admitted 10/31/2018 due to shortness of breath, palpitations. 1. Paroxysmal atrial fibrillation with RVR status post successful cardioversion 11/02/2018-cardiology consulted. Echocardiogram March 2018 with EF 55%, stage II diastolic dysfunction, mild to moderate mitral valve insufficiency, mild to moderate tricuspid valve insufficiency. ARIS with EF 50%, no regional wall motion abnormalities, no thrombus in the left atrial appendage, mild to moderate mitral valve insufficiency. Discharge on Toprol XL 75 mg daily. Follow-up with cardiology in 1 week for repeat EKG and INR check. Follow-up with primary care provider in 1 week. 2. Right shoulder pain-patient reports she has had similar pain with prior episodes of atrial fibrillation in the past. Troponin negative. Patient may require stress test as outpatient in the future. 3. Supratherapeutic INR-Coumadin held during admission. Reduce Coumadin to 3 mg daily. Repeat INR in 1 week with cardiology. 4. Mild acute on chronic diastolic CHF-weaned off of supplemental oxygen. Lower extremity edema improved. CXR without acute process. BNP 450. IV lasix 40mg X1. Discharge on oral Lasix 40 mg daily and potassium 20 mEq daily. 5. Elevated LFTs-appears chronic. Unclear etiology. 6. Hypertension-continue metoprolol regimen. General: Alert, Oriented x3, Cooperative HEENT: Atraumatic, PERRLA, EOMI, Normocephalic Oral: Dry Mucosa Neck: Supple, No JVD, Negative Carotid Bruits Lungs: Clear to auscultation, Diminished Cardiovascular: Regular rate, normal sinus rhythm Abdomen: Bowel Sounds Present, Soft, Non Tender, Non-Distended Extremities: No clubbing, No cyanosis, Edema - +1-2 bilateral lower extremities Skin: No rashes, No breakdown Musculoskeletal: No Tenderness to Palpation of Joints or Extremities Neurological: Cranial nerves II-XII grossly intact, Neuro grossly intact Psych/Mental Status: Normal Affect, Appropriate Patient seen and examined prior to discharge. Physical assessment as noted above. Patient is stable for discharge with follow up recommendations as noted above. This patient was seen by DANYA Borjas under the supervision of Dr. Stevenson. - Physical Exam Vital Signs Temp Pulse Resp BP Pulse Ox 98.4 F 47 L 16 122/99 H 99 11/02/18 08:20 11/02/18 12:58 11/02/18 12:58 11/02/18 12:58 11/02/18 12:58 Oxygen Flow Rate (L/min) 2 Oxygen Delivery Method Room Air Weight: 138 lb 7.205 oz Body Mass Index (BMI) 26.2 Intake and Output for Last 24 Hours 10/31/18 11/01/18 11/02/18 23:59 23:59 23:59 Intake Total 60 / 60 1095 / 1095 90 / 90 Output Total 300 / 300 400 / 400 Balance 60 / 60 795 / 795 -310 / -310 Laboratory Tests Past 24 Hrs 10/31/18 11/01/18 11/02/18 18:55 00:40 05:24 PT 42.0 H INR 4.3 H* B-Natriuretic Peptide 449.3 H TSH 1.91 Discharge Diet: Low fat/ Low Cholesterol Discharge Activity: Return to Normal Activity Call your doctor if you observe: Shortness of breath, Dizziness, Fainting spells, Chest pain, Increased palpitations (irregular heartbeat) Home Medications: Medications to take at Discharge Multivitamins,Therapeutic [Multivitamin] 1 tab PO DAILY 03/15/13 Cholecalciferol (VIT D3) [Vitamin D3] 1,000 unit PO DAILY 01/09/15 Calcium Carbonate [Calcium] 500 mg PO DAILY 10/08/16 omega-3 fatty acids 1,000 mg capsule 1,000 mg PO DAILY 03/17/18 Furosemide [Lasix] 40 mg PO DAILY #60 tab 11/02/18 Metoprolol(XL)Succ [Toprol Xl (Beta Neeraj)] 25 mg PO DAILY #60 tab 11/02/18 Metoprolol(XL)Succ [Toprol Xl (Beta Neeraj)] 50 mg PO DAILY #60 tab 11/02/18 Potassium Chloride [K-Dur] 20 meq PO DAILYCM #30 tab 11/02/18 Warfarin [Coumadin ([facility])] 3 mg PO DAILY #30 tab 11/02/18 Following Prescrptions Were Given to Patient: Warfarin [Coumadin ([facility])] 3 mg PO DAILY #30 tab Transmission Status: Pending to [facility] Potassium Chloride [K-Dur] 20 meq PO DAILYCM #30 tab Transmission Status: Pending to [facility]30 Furosemide [Lasix] 40 mg PO DAILY #60 tab Transmission Status: Pending to [facility]30 Metoprolol(XL)Succ [Toprol Xl (Beta Neeraj)] 25 mg PO DAILY #60 tab Transmission Status: Pending to [facility]30 Metoprolol(XL)Succ [Toprol Xl (Beta Neeraj)] 50 mg PO DAILY #60 tab Transmission Status: Pending to [facility] Primary Care Physician: Minerva Manley MD [Primary Care Provider] - Please follow up with your Primary Care Physician in: 1 Week Please Follow Up With: Maxim Ibarra MD When: 1 Week, nurse visit for EKG and INR check- Call office Disposition: Home Minutes spent on discharge:: 35 Patient Condition:: Stable Medical Necessity - Tobacco Use Smoking Status: Former smoker Meaningful Use Info Meaningful Use Diagnoses (Choose all that apply): CHF - CHF LAYLA/ARB ordered at discharge?: No Reason LAYLA/ARB not ordered?: Drug Interaction Documented LVEF (%): 50 - layla/arb not indicated
--- NOTE | 2018-11-02 14:03 | PCM.PROGNOTE ---
<Tamica Coburn - Last Filed: 11/02/18 14:08> Subjective: Patient seen and examined. Underwent cardioversion with successful conversion to normal sinus rhythm. This afternoon she then developed bradycardia intermittently with A. fib RVR. Discharge held. Initiated on amiodarone per cardiology. - Physical Exam General: Alert, Oriented x3, Cooperative HEENT: Atraumatic, PERRLA, EOMI, Normocephalic Neck: Supple, No JVD, Negative Carotid Bruits Lungs: Clear to auscultation, Normal air movement Cardiovascular: - - Intermittent atrial fibrillation with RVR Abdomen: Bowel Sounds Present, Soft, Non Tender, Non-Distended Extremities: No clubbing, No cyanosis, Capillary Refill Less than 3 Seconds, Edema - Nonpitting bilateral lower extremities Skin: No rashes, No breakdown Musculoskeletal: No Tenderness to Palpation of Joints or Extremities Neurological: Cranial nerves II-XII grossly intact, Neuro grossly intact Psych/Mental Status: Normal Affect, Appropriate Vital Signs Temp Pulse Resp BP Pulse Ox 98.4 F 44 L 16 116/63 90 11/02/18 08:20 11/02/18 13:14 11/02/18 13:14 11/02/18 13:14 11/02/18 13:14 Oxygen Flow Rate (L/min) 2 Oxygen Delivery Method Room Air Weight: 138 lb 7.205 oz Body Mass Index (BMI) 26.2 Intake and Output for Last 24 Hours 10/31/18 11/01/18 11/02/18 23:59 23:59 23:59 Intake Total 60 / 60 1095 / 1095 90 / 90 Output Total 300 / 300 400 / 400 Balance 60 / 60 795 / 795 -310 / -310 Laboratory Tests Past 24 Hrs 11/01/18 11/02/18 00:40 05:24 PT 42.0 H INR 4.3 H* TSH 1.91 Medical Necessity - Tobacco Use Smoking Status: Former smoker Assessment/Plan All Active Problems (Last Updated 11/02/18 @ 14:21 by Flores Monroe) Atrial fibrillation with RVR (Acute 10/31/18) Acute cholecystitis (Resolved) 1. Paroxysmal atrial fibrillation with RVR status post initally successful cardioversion 11/02/2018-cardiology consulted. Echocardiogram March 2018 with EF 55%, stage II diastolic dysfunction, mild to moderate mitral valve insufficiency, mild to moderate tricuspid valve insufficiency. ARIS with EF 50%, no regional wall motion abnormalities, no thrombus in the left atrial appendage, mild to moderate mitral valve insufficiency. Cardioversion initially successful however now having episodes of bradycardia and atrial for ablation with RVR intermittently. Initiated on IV amiodarone. Will monitor overnight. Further recommendations per cardiology. 2. Right shoulder pain-patient reports she has had similar pain with prior episodes of atrial fibrillation in the past. Troponin negative. Patient may require stress test as outpatient in the future. 3. Supratherapeutic INR-hold Coumadin, trend INR. Reduce Coumadin to 3 mg daily at discharge. 4. Mild acute on chronic diastolic CHF-weaned off of supplemental oxygen. Lower extremity edema improved. CXR without acute process. BNP 450. IV lasix 40mg X1. Continue oral Lasix 40 mg daily and potassium 20 mEq daily. 5. Elevated LFTs-appears chronic. Unclear etiology. 6. Hypertension-continue metoprolol regimen. DVT prophylaxis-Coumadin This patient was seen by DANYA oBrjas under the supervision of Dr. Stevenson. <Martiza Stevenson - Last Filed: 11/02/18 15:51> - Physical Exam Vital Signs Temp Pulse Resp BP Pulse Ox 97.7 F L 44 L 16 116/63 90 11/02/18 12:00 11/02/18 13:14 11/02/18 13:14 11/02/18 13:14 11/02/18 13:14 Oxygen Flow Rate (L/min) 2 Oxygen Delivery Method Room Air Weight: 62.8 kg Body Mass Index (BMI) 26.2 Intake and Output for Last 24 Hours 10/31/18 11/01/18 11/02/18 23:59 23:59 23:59 Intake Total 60 / 60 1095 / 1095 90 / 90 Output Total 300 / 300 400 / 400 Balance 60 / 60 795 / 795 -310 / -310 Laboratory Tests Past 24 Hrs 11/02/18 05:24 PT 42.0 H INR 4.3 H* Assessment/Plan This patient was seen in conjunction with Tamica Coburn NP. I have independently interviewed and examined the patient and reviewed pertinent historical, laboratory, and other data. Please refer to her note for patient's presentation, findings, and recommendations. Patient was seen and examined. She is irritated that she is still in RVR. Denied any chest pains or dizziness as some shortness of breath. Underwent cardioversion successfully but went back into RVR. 12 point ROS is negative Vitals were reviewed -stable Labs reviewed - INR 4.3 Physical Exam: Gen: Comfortable, not pale, not jaundiced, alert oriented x3 CVS:HS I +II, regular, no murmurs RESP: Diminished at lung bases GI: BS present and normal, nontender, no palpable organs EXT:No edema ASSESSMENT: 1. A fib with RVR 2. Supratherapeutic INR 3. Acute on chronic CHF 4. Hypertension Meds reviewed Plan: Continue per cardiology recommendations Hold couymadin Repeat INR and labs in am Code Visit Inpatient E&M: 49735 Subs Hosp L3
[2018-11-02] MEDS: Metoprolol(XL)Succ 50 MG Tablet PO (17:57)
[2018-11-02] MEDS: Amiodarone 200 MG Tablet PO (21:48)
[2018-11-03] VITALS (14 sets, daily range): BP systolic 117–140; BP diastolic 64–107; PULSE 66–141; RESP 14–18; TEMP 36.6–37.3; O2SAT 85–96
[2018-11-03] MEDS: Acetaminophen 325 MG Tablet 650 MG PO (04:13)
[2018-11-03 06:42] LABS: Prothrombin Time (Protime)PT. 39.1 SECONDS (11.7-14.9)
--- NOTE | 2018-11-03 08:22 | PN.CARD_ITS ---
Subjectve: Patient seen and evaluated. Appears to be stable. Appears to have reverted back into atrial fibrillation. Objective: Vital Signs Temp Pulse Resp BP Pulse Ox 98.0 F 93 18 140/81 H 92 11/03/18 03:47 11/03/18 07:00 11/03/18 03:47 11/03/18 03:47 11/03/18 03:47 Oxygen Flow Rate (L/min) 1 Oxygen Delivery Method Nasal Cannula Weight: 138 lb 7.205 oz Body Mass Index (BMI) 26.2 Intake and Output for Last 24 Hours 11/01/18 11/02/18 11/03/18 23:59 23:59 23:59 Intake Total 1095 / 1095 605 / 605 240 / 240 Output Total 300 / 300 400 / 400 Balance 795 / 795 205 / 205 240 / 240 General: Awake, Alert, Oriented x 3 HEENT: PERRL, EOMI, Sclera Non Icteric Neck: Supple, Good ROM, No Lymph Node Enlargement Lungs: Clear to auscultation Cardiovascular: Irregular Rhythm, Normal S1, Normal S2, No Murmurs, No Rubs, No Gallops Vascular: No Carotid Bruits, Normal Femoral Pulses, Normal Radial Pulses, Normal Dorsalis Pedal Pulse, Normal Posterior Tibial Pulses Abdomen: Bowel Sounds Present, Soft, Non Tender, No HSM, No Organomegaly Extremities: No Cyanosis, No Clubbing, No edema Musculoskeletal: No Erythema Skin: No Rashes Lymphatic: No Lymph Node Enlargement Neurological: No Focal Motor or Sensory Deficit Psych/Mental Status: Appropriate 11/03/18 05:25: PT 39.1 H, INR 4.0 H* Rhythm: EKG: ECHO: Stress Test: Cardiac Cath: PCI: CT Surgery: Holter monitor: EPS: PPM: CXR: Chest CT Scan: Medical Necessity - Tobacco Use Smoking Status: Former smoker Assessment/Plan 1. Atrial fibrillation * Patient presents with fairly recent atrial fibrillation with rapid ventricular response rate. Her ventricular response rate appears to be decent at this time. She has been anticoagulated but for less than 3 weeks. My recommendation would therefore be for us to consider her for a transesophageal guided cardioversion. * The ARIS cardioversion was carried out with resumption of sinus rhythm however it appears that patient reverted back into atrial fibrillation. Has had some questionable issues with amiodarone. We will therefore recommend beta-karson and flecainide at this time and likely bring back for interval cardioversion. * Will observe how she responds over the next few hours. We will continue anticoagulation. 2. Cardiomyopathy * This has resolved. Transesophageal echocardiogram demonstrated overall preserved left ventricular systolic function. * Patient had also undergone a cardiac catheterization in 2012 which was normal. * * * Thank you for allowing me to participate in the care of your patient. Please don't hesitate to call if any issues arise
[2018-11-03] MEDS: Furosemide 40 MG Tablet PO (09:01)
[2018-11-03] MEDS: Flecainide 100 MG Tablet PO ×2 (09:01→21:30)
[2018-11-03] MEDS: Metoprolol(XL)Succ 100 MG Tablet PO (09:01)
--- NOTE | 2018-11-03 12:34 | PCM.PROGNOTE ---
<Tamica Coburn - Last Filed: 11/03/18 12:44> Subjective: Patient seen and examined. Requiring supplemental oxygen with ambulation. Heart rate elevated during ambulation as well. Denies chest pain, palpitations. Denies significant shortness of breath. - Physical Exam General: Alert, Oriented x3, Cooperative HEENT: Atraumatic, PERRLA, EOMI, Normocephalic Neck: Supple, No JVD, Negative Carotid Bruits Lungs: Clear to auscultation, Diminished Cardiovascular: - - Atrial fibrillation, no murmur. Intermittent tachycardia. Abdomen: Bowel Sounds Present, Soft, Non Tender, Non-Distended Extremities: No clubbing, No cyanosis, No edema, Capillary Refill Less than 3 Seconds Skin: No rashes, No breakdown Musculoskeletal: No Tenderness to Palpation of Joints or Extremities Neurological: Cranial nerves II-XII grossly intact, Neuro grossly intact Psych/Mental Status: Normal Affect, Appropriate Vital Signs Temp Pulse Resp BP Pulse Ox 97.8 F 87 14 140/107 H 85 11/03/18 09:00 11/03/18 09:01 11/03/18 09:00 11/03/18 09:00 11/03/18 10:52 Oxygen Flow Rate (L/min) 1 Oxygen Delivery Method Room Air Weight: 138 lb 7.205 oz Body Mass Index (BMI) 26.2 Intake and Output for Last 24 Hours 11/01/18 11/02/18 11/03/18 23:59 23:59 23:59 Intake Total 1095 / 1095 605 / 605 690 / 690 Output Total 300 / 300 400 / 400 Balance 795 / 795 205 / 205 690 / 690 Laboratory Tests Past 24 Hrs 11/03/18 05:25 PT 39.1 H INR 4.0 H* Medical Necessity - Tobacco Use Smoking Status: Former smoker Assessment/Plan All Active Problems (Last Updated 11/02/18 @ 14:21 by Flores Monroe) Atrial fibrillation with RVR (Acute 10/31/18) Acute cholecystitis (Resolved) 1. Paroxysmal atrial fibrillation with RVR status post cardioversion 11/02/2018, patient initially converted to sinus rhythm briefly however returned to atrial fibrillation-Dr. Ibarra, cardiology consulted. Echocardiogram March 2018 with EF 55%, stage II diastolic dysfunction, mild to moderate mitral valve insufficiency, mild to moderate tricuspid valve insufficiency. ARIS with EF 50%, no regional wall motion abnormalities, no thrombus in the left atrial appendage, mild to moderate mitral valve insufficiency. Patient remains in atrial fibrillation, rate elevated with ambulation. Initiated on flecainide 100 mg twice daily and Toprol XL increased to 100 mg daily. INR 4.0 this morning. Coumadin on hold. Monitor heart rate overnight. Anticipate discharge home tomorrow. 2. Right shoulder pain-patient reports she has had similar pain with prior episodes of atrial fibrillation in the past. Troponin negative. Patient may require stress test as outpatient in the future. 3. Supratherapeutic INR-hold Coumadin, trend INR. Reduce Coumadin to 3 mg daily at discharge. 4. Acute on chronic diastolic CHF with associated acute hypoxic respiratory insufficiency-weaned off of supplemental oxygen. However requiring oxygen supplementation with ambulation. Lower extremity edema improved. CXR without acute process. BNP 450. Received IV Lasix x2. Continue oral Lasix 40 mg daily and potassium 20 mEq daily. 5. Elevated LFTs-appears chronic. Unclear etiology. Outpatient follow-up. 6. Hypertension-continue metoprolol regimen. DVT prophylaxis-Coumadin This patient was seen by PAGE BorjasC under the supervision of Dr. tSevenson. <Maritza Stevenson - Last Filed: 11/03/18 17:29> - Physical Exam Vital Signs Temp Pulse Resp BP Pulse Ox 98.9 F 115 H 16 117/81 H 93 11/03/18 15:05 11/03/18 15:05 11/03/18 15:05 11/03/18 15:05 11/03/18 15:05 Oxygen Flow Rate (L/min) 1 Oxygen Delivery Method Room Air Weight: 62.8 kg Body Mass Index (BMI) 26.2 Intake and Output for Last 24 Hours 11/01/18 11/02/18 11/03/18 23:59 23:59 23:59 Intake Total 1095 / 1095 605 / 605 690 / 690 Output Total 300 / 300 400 / 400 Balance 795 / 795 205 / 205 690 / 690 Laboratory Tests Past 24 Hrs 11/03/18 05:25 PT 39.1 H INR 4.0 H* Assessment/Plan This patient was seen in conjunction with Tamica Coburn TILE EDGER. I have independently interviewed and examined the patient and reviewed pertinent historical, laboratory, and other data. Please refer to her note for patient's presentation, findings, and recommendations. Patient was seen and examined. Denies any complaints. Denies any dizziness or palpitations or shortness of breath. Still in atrial fibrillation. She has started on flecainide today. Metoprolol increased 200 mg daily. INR remains supratherapeutic. 12 point ROS is negative. Vitals were reviewed -stable Labs reviewed - INR 4.0 Physical Exam: Gen: Comfortable, not pale, not jaundiced, alert oriented x3 CVS:HS I +II, regular, no murmurs RESP: Diminished at lung bases GI: BS present and normal, nontender, no palpable organs EXT:No edema ASSESSMENT: 1. A fib with RVR 2. Supratherapeutic INR 3. Acute on chronic CHF 4. Hypertension Meds reviewed Plan: Continue per cardiology recommendations Continue to hold Repeat INR and labs in am Code Visit Inpatient E&M: 91248 Subs Hosp L2
[2018-11-03] MEDS: Furosemide 20 MG/2 ML VIAL IV (17:07)
[2018-11-03] MEDS: 0.9% NaCl Peripheral Flush Adult/Peds IV (17:07)
[2018-11-03] MEDS: Metoprolol Tartrate 5 MG/5 ML Vial IV (18:04)
[2018-11-03] MEDS: Metoprolol(XL)Succ 50 MG Tablet PO (18:42)
[2018-11-04] VITALS (8 sets, daily range): BP systolic 136–150; BP diastolic 86–87; PULSE 105–113; RESP 16–18; TEMP 36.3–37.1; O2SAT 91–94
[2018-11-04 06:30] LABS: International Normalized Ratio 2.6; Prothrombin Time (Protime)PT. 27.9 SECONDS (11.7-14.9)
[2018-11-04 06:39] LABS: Anion Gap 8 (5-15); BUN 19 mg/dL (7-18); Calcium,Total 8.8 mg/dL (8.5-10.1); Chloride 104 mmol/L (98-107); Creatinine, Serum 0.56 mg/dL (0.55-1.02); EST Glomerular Filtration Rate 114 mL/min (>60); Est Glom Filt Rate - Afr Amer 137 mL/min (>60); Estimated Creatinine Clearance 38.94 ml/min; Glucose 104 mg/dL (74-106); Sodium Level 143 mmol/L (136-145)
--- NOTE | 2018-11-04 07:52 | PN.CARD_ITS ---
Subjectve: Patient seen and evaluated. Appears to be doing better. Heart rate appears to be better controlled but still over 100. Objective: Vital Signs Temp Pulse Resp BP Pulse Ox 97.4 F L 112 H 18 136/87 H 94 11/04/18 03:05 11/04/18 06:44 11/04/18 03:05 11/04/18 03:05 11/04/18 07:32 Oxygen Flow Rate (L/min) 1 Oxygen Delivery Method Room Air Weight: 138 lb 7.205 oz Body Mass Index (BMI) 26.2 Intake and Output for Last 24 Hours 11/02/18 11/03/18 11/04/18 23:59 23:59 23:59 Intake Total 605 / 605 1240 / 1240 240 / 240 Output Total 400 / 400 Balance 205 / 205 1240 / 1240 240 / 240 General: Awake, Alert, Oriented x 3 HEENT: PERRL, EOMI, Sclera Non Icteric Neck: Supple, Good ROM, No Lymph Node Enlargement Lungs: Clear to auscultation Cardiovascular: Irregular Rhythm, Normal S1, Normal S2, No Murmurs, No Rubs, No Gallops Vascular: No Carotid Bruits, Normal Femoral Pulses, Normal Radial Pulses, Normal Dorsalis Pedal Pulse, Normal Posterior Tibial Pulses Abdomen: Bowel Sounds Present, Soft, Non Tender, No HSM, No Organomegaly Extremities: No Cyanosis, No Clubbing, No edema Musculoskeletal: No Erythema Skin: No Rashes Lymphatic: No Lymph Node Enlargement Neurological: No Focal Motor or Sensory Deficit Psych/Mental Status: Appropriate 11/04/18 06:00: PT 27.9 H, INR 2.6 11/04/18 06:00: Sodium 143, Potassium 4.0, Chloride 104, Carbon Dioxide 31.0, Anion Gap 8, BUN 19 H, Creatinine 0.56, Est GFR (MDRD) Af Amer 137, Est GFR (MDRD) Non-Af 114, BUN/Creatinine Ratio 34.0 H, Glucose 104, Calcium 8.8 Rhythm: EKG: ECHO: Stress Test: Cardiac Cath: PCI: CT Surgery: Holter monitor: EPS: PPM: CXR: Chest CT Scan: Medical Necessity - Tobacco Use Smoking Status: Former smoker Assessment/Plan 1. Atrial fibrillation * Patient presents with fairly recent atrial fibrillation with rapid ventricular response rate. * The ARIS cardioversion was carried out with resumption of sinus rhythm however it appears that patient reverted back into atrial fibrillation. Has had some questionable issues with amiodarone. We will therefore recommend beta-karson and flecainide at this time and likely bring back for interval cardioversion. * Recommendation will be to continue Toprol-XL 100 mg in a.m. and 50 mg in p.m. together with flecainide 100 mg twice daily. * Patient can be discharged today with outpatient follow-up in my office in 1 to 2 weeks.. 2. Cardiomyopathy * This has resolved. Transesophageal echocardiogram demonstrated overall preserved left ventricular systolic function. * Patient had also undergone a cardiac catheterization in 2012 which was normal. * * * Thank you for allowing me to participate in the care of your patient. Please don't hesitate to call if any issues arise
--- NOTE | 2018-11-04 09:32 | PCM.DC ---
- Discharge Diagnoses Current Active Problems: Current Active and Chronic Problems (Last Updated 11/02/18 @ 14:21 by Flores Monroe) Paroxysmal atrial fibrillation (Chronic) Chronic diastolic (congestive) heart failure (Chronic) You will use the following diet at home:: Cardiac Discharge Activity: Return to Normal Activity Call your doctor if you observe: Shortness of breath, Dizziness, Fainting spells, Chest pain, Increased palpitations (irregular heartbeat) Additional Instructions: Resume coumadin 3mg tonight. You will take Toprol-XL 100 mg in a.m. and Toprol-XL 50 mg in p.m. Allergies/Adverse Reactions: Allergies diltiazem HCl [From Cardizem] Allergy (Verified 10/31/18 18:53) Swelling of face and neck naproxen Allergy (Verified 10/31/18 18:53) Swelling (whole body) amiodarone Adverse Reaction (Severe, Verified 10/31/18 18:53) Severe dyspnea after taking PO Amiodarone adhesive Adverse Reaction (Verified 10/31/18 18:53) Rash albuterol Adverse Reaction (Verified 10/31/18 18:53) Other codeine Adverse Reaction (Verified 10/31/18 18:53) Vomiting hydrocodone bitartrate [From Vicodin] Adverse Reaction (Verified 10/31/18 18:53) Vomiting morphine Adverse Reaction (Verified 10/31/18 18:53) Vomiting Medications to take at Discharge Multivitamins,Therapeutic [Multivitamin] 1 tab PO DAILY 03/15/13 Cholecalciferol (VIT D3) [Vitamin D3] 1,000 unit PO DAILY 01/09/15 Calcium Carbonate [Calcium] 500 mg PO DAILY 10/08/16 omega-3 fatty acids 1,000 mg capsule 1,000 mg PO DAILY 03/17/18 Furosemide [Lasix] 40 mg PO DAILY #60 tab 11/02/18 Potassium Chloride [K-Dur] 20 meq PO DAILYCM #30 tab 11/02/18 Warfarin [Coumadin ([facility])] 3 mg PO DAILY #30 tab 11/02/18 Flecainide [Tambocor] 100 mg PO BID #60 tab 11/04/18 Metoprolol Succinate [Toprol Xl] 50 mg PO DAILY #30 tab.er.24h 11/04/18 Metoprolol(XL)Succ [Toprol Xl (Beta Neeraj)] 100 mg PO DAILY #30 tab 11/04/18 The following prescriptions were given: Warfarin [Coumadin ([facility])] 3 mg PO DAILY #30 tab Transmission Status: Received by [facility]30 Potassium Chloride [K-Dur] 20 meq PO DAILYCM #30 tab Transmission Status: Received by [facility]30 Furosemide [Lasix] 40 mg PO DAILY #60 tab Transmission Status: Received by [facility]30 Flecainide [Tambocor] 100 mg PO BID #60 tab Transmission Status: Pending to [facility] #30 Metoprolol Succinate [Toprol Xl] 50 mg PO DAILY #30 tab.er.24h Transmission Status: Pending to [facility]30 Metoprolol(XL)Succ [Toprol Xl (Beta Neeraj)] 100 mg PO DAILY #30 tab Transmission Status: Pending to [facility]30 Primary Care Physician: Minerva Manley MD [Primary Care Provider] - Please follow up with your Primary Care Physician in: 1 Week Test Results: Test results from this visit will be discussed in further detail at your follow-up appointment, if applicable. Please Follow Up With: Maxim Ibarra MD When: 1 Week, call for appointment, will need INR 1 week as well Proposed Discharge Date: 11/04/18
--- NOTE | 2018-11-04 10:09 | CASEMGMT ---
NINI CM NOTE: Home oxygen testing has been completed and reviewed. Pulse ox 91% ambulating on RA. Pt does not qualify for Home O2. Florentin BSN RN CM
--- NOTE | 2018-11-04 10:22 | DS.PCM_ITS ---
<Tamica Coburn - Last Filed: 11/04/18 10:39> Discharge Date and Diagnosis Date of Admission: 10/31/18 Date of Discharge: 11/04/18 - Primary Discharge Diagnosis 1. Atrial fibrillation with RVR 2. Right shoulder pain-ACS ruled out. 3. Supratherapeutic INR 4. Acute on chronic diastolic CHF with associated acute hypoxic respiratory insufficiency 5. Elevated LFTs 6. Hypertension - Secondary Discharge Diagnosis Chronic Problems (Last Updated 11/02/18 @ 14:21 by Flores Monroe) Paroxysmal atrial fibrillation (Chronic) Chronic diastolic (congestive) heart failure (Chronic) half-way (current) use of anticoagulants (Chronic) Cardiomyopathy in other diseases classified elsewhere (Chronic) Nonrheumatic aortic valve stenosis (Chronic) Non-rheumatic tricuspid valve insufficiency (Chronic) Scoliosis of cervical spine (Chronic) Hospital Course and Treatment Imaging Results: Diagnostic Data Chest X-Ray 10/31/18 18:46 IMPRESSION: 1. No acute cardiorespiratory disease. 2. Mild cardiomegaly. Electronically Signed: Tony Tomas, at 19:06 EDT Tel , Service support , Dr. Ibarra- Cardiology Operations: None Procedures: Cardioversion, Transesophageal Echo Summary of Care Provided: The patient is a 73 year old F admitted 10/31/2018 due to shortness of breath, palpitations. 1. Paroxysmal atrial fibrillation with RVR status post successful cardioversion 11/02/2018-Dr. Ibarra, cardiology consulted. Echocardiogram March 2018 with EF 55%, stage II diastolic dysfunction, mild to moderate mitral valve insufficiency, mild to moderate tricuspid valve insufficiency. ARIS with EF 50%, no regional wall motion abnormalities, no thrombus in the left atrial appendage, mild to moderate mitral valve insufficiency. Discharge on Toprol XL 100 mg a.m. and Toprol XL 50mg P.M . Initiated on flecainide 100 mg twice daily. Continue Coumadin 3 mg daily. Follow-up with cardiology in 1 week. 2. Right shoulder pain-patient reports she has had similar pain with prior episodes of atrial fibrillation in the past. Troponin negative. Patient may require stress test as outpatient in the future. 3. Supratherapeutic INR-Coumadin held during admission. INR trended down, 2.6 at discharge. Reduce Coumadin to 3 mg daily. Repeat INR in 1 week with cardiology. 4. Mild acute on chronic diastolic CHF-weaned off of supplemental oxygen. Lower extremity edema improved. CXR without acute process. BNP 450. Patient received IV Lasix x2. Discharge on oral Lasix 40 mg daily and potassium 20 mEq daily. Walking pulse ox completed prior to discharge and patient did not require further supplemental oxygen. 5. Elevated LFTs-appears chronic. Unclear etiology. Recommend outpatient follow-up with primary care provider. 6. Hypertension-continue metoprolol regimen. General: Alert, Oriented x3, Cooperative HEENT: Atraumatic, PERRLA, EOMI, Normocephalic Neck: Supple, No JVD, Negative Carotid Bruits Lungs: Clear to auscultation, Diminished Cardiovascular: - - Atrial fibrillation, no murmur. Intermittent tachycardia. Abdomen: Bowel Sounds Present, Soft, Non Tender, Non-Distended Extremities: No clubbing, No cyanosis, No edema, Capillary Refill Less than 3 Seconds Skin: No rashes, No breakdown Musculoskeletal: No Tenderness to Palpation of Joints or Extremities Neurological: Cranial nerves II-XII grossly intact, Neuro grossly intact Psych/Mental Status: Normal Affect, Appropriate Patient seen and examined prior to discharge. Physical assessment as noted above. Patient is stable for discharge with follow up recommendations as noted above. This patient was seen by DANYA Borjas under the supervision of Dr. Stevenson. - Physical Exam Vital Signs Temp Pulse Resp BP Pulse Ox 98.7 F 105 H 16 150/86 H 92 11/04/18 09:05 11/04/18 09:35 11/04/18 09:35 11/04/18 09:05 11/04/18 09:35 Oxygen Flow Rate (L/min) 1 Oxygen Delivery Method Room Air Weight: 138 lb 7.205 oz Body Mass Index (BMI) 26.2 Intake and Output for Last 24 Hours 11/02/18 11/03/18 11/04/18 23:59 23:59 23:59 Intake Total 605 / 605 1240 / 1240 240 / 240 Output Total 400 / 400 Balance 205 / 205 1240 / 1240 240 / 240 Laboratory Tests Past 24 Hrs 11/04/18 11/04/18 06:00 06:00 PT 27.9 H INR 2.6 Sodium 143 Potassium 4.0 Chloride 104 Carbon Dioxide 31.0 Anion Gap 8 BUN 19 H Creatinine 0.56 Estim Creat Clear Calc 38.94 Est GFR (MDRD) Af Amer 137 Est GFR (MDRD) Non-Af 114 BUN/Creatinine Ratio 34.0 H Glucose 104 Calcium 8.8 Discharge Diet: Low fat/ Low Cholesterol Discharge Activity: Return to Normal Activity Call your doctor if you observe: Shortness of breath, Dizziness, Fainting spells, Chest pain, Increased palpitations (irregular heartbeat) Home Medications: Medications to take at Discharge Multivitamins,Therapeutic [Multivitamin] 1 tab PO DAILY 03/15/13 Cholecalciferol (VIT D3) [Vitamin D3] 1,000 unit PO DAILY 01/09/15 Calcium Carbonate [Calcium] 500 mg PO DAILY 10/08/16 omega-3 fatty acids 1,000 mg capsule 1,000 mg PO DAILY 03/17/18 Furosemide [Lasix] 40 mg PO DAILY #60 tab 11/02/18 Potassium Chloride [K-Dur] 20 meq PO DAILYCM #30 tab 11/02/18 Warfarin [Coumadin ([facility])] 3 mg PO DAILY #30 tab 11/02/18 Flecainide [Tambocor] 100 mg PO BID #60 tab 11/04/18 Metoprolol Succinate [Toprol Xl] 50 mg PO DAILY #30 tab.er.24h 11/04/18 Metoprolol(XL)Succ [Toprol Xl (Beta Neeraj)] 100 mg PO DAILY #30 tab 11/04/18 Following Prescrptions Were Given to Patient: Warfarin [Coumadin ([facility])] 3 mg PO DAILY #30 tab Transmission Status: Received by [facility]30 Potassium Chloride [K-Dur] 20 meq PO DAILYCM #30 tab Transmission Status: Received by [facility]30 Furosemide [Lasix] 40 mg PO DAILY #60 tab Transmission Status: Received by [facility]30 Flecainide [Tambocor] 100 mg PO BID #60 tab Transmission Status: Received by [facility]30 Metoprolol Succinate [Toprol Xl] 50 mg PO DAILY #30 tab.er.24h Transmission Status: Received by [facility]30 Metoprolol(XL)Succ [Toprol Xl (Beta Neeraj)] 100 mg PO DAILY #30 tab Transmission Status: Received by [facility]30 Primary Care Physician: Minerva Manley MD [Primary Care Provider] - Please follow up with your Primary Care Physician in: 1 Week Please Follow Up With: Maxim Ibarra MD When: 1 Week, call for appointment, will need INR 1 week as well Please Follow Up With: Minerva Manley MD Disposition: Home Minutes spent on discharge:: 35 Patient Condition:: Stable Medical Necessity - Tobacco Use Smoking Status: Former smoker Meaningful Use Info Meaningful Use Diagnoses (Choose all that apply): CHF - CHF LAYLA/ARB ordered at discharge?: No Reason LAYLA/ARB not ordered?: Drug Interaction - Not indicated, EF 50% Documented LVEF (%): 50 <Maritza Stevenson - Last Filed: 11/06/18 08:10> Discharge Date and Diagnosis - Secondary Discharge Diagnosis Chronic Problems (Last Updated 11/02/18 @ 14:21 by Flores Monroe) Paroxysmal atrial fibrillation (Chronic) Chronic diastolic (congestive) heart failure (Chronic) [employer] (current) use of anticoagulants (Chronic) Cardiomyopathy in other diseases classified elsewhere (Chronic) Nonrheumatic aortic valve stenosis (Chronic) Non-rheumatic tricuspid valve insufficiency (Chronic) Scoliosis of cervical spine (Chronic) Hospital Course and Treatment Summary of Care Provided: This patient was seen in conjunction with Tamica Coburn NP. I have independently interviewed and examined the patient and reviewed pertinent historical, laboratory, and other data. Please refer to her note for patient's presentation, findings, and recommendations. 73 y/o female with past medical history of atrial fibrillation status post ablation who was admitted with shortness of breath with palpitations and found to be in A. fib with RVR. Patient underwent ARIS cardioversion successfully for a short time. He however was back in RVR. She was managed briefly with amiodarone without success. She was started then on flecainide. She was continued on Coumadin and will follow up with cardiology within a week. On the day of discharge, patient was seen and examined. She felt improved. She remained in A. fib, rate controlled. Denies any complaints. Denies any dizziness or palpitations or shortness of breath. 12 point ROS is negative. Vitals were reviewed -stable Physical Exam: Gen: Comfortable, not pale, not jaundiced, alert oriented x3 CVS:HS I +II, regular, no murmurs RESP: Diminished at lung bases GI: BS present and normal, nontender, no palpable organs EXT:No edema ASSESSMENT: 1. A fib with RVR 2. Supratherapeutic INR 3. Acute on chronic CHF 4. Hypertension 5. Chronic elevation of liver enzymes - Physical Exam Vital Signs Temp Pulse Resp BP Pulse Ox 98.7 F 113 H 16 150/86 H 92 11/04/18 09:05 11/04/18 10:25 11/04/18 09:35 11/04/18 09:05 11/04/18 09:35 Oxygen Flow Rate (L/min) 1 Oxygen Delivery Method Room Air Weight: 62.8 kg Body Mass Index (BMI) 26.2 Intake and Output for Last 24 Hours 11/04/18 11/05/18 11/06/18 23:59 23:59 23:59 Intake Total 240 / 240 Balance 240 / 240 Code Visit Inpatient E&M: 29388 Subs Hosp L2
[2018-11-04] MEDS: Metoprolol(XL)Succ 100 MG Tablet PO (10:25)
[2018-11-04] MEDS: Flecainide 100 MG Tablet PO (10:25)
== END 2018-11-04 10:35 | disposition home or self-care (01) | DRG 309 ==
LOC: ED 19:03 → PCU 21:15
PROVIDERS: Nurse Practitioner Family; Admitting Provider Hospitalist; Emergency Provider Emergency Medicine; Family Provider Internal Medicine; PCP Internal Medicine; Visit Provider Internal Medicine
DX: I48.0 Paroxysmal atrial fibrillation (principal); I50.32 Chronic diastolic (congestive) heart failure; Z88.5 Allergy status to narcotic agent; I42.9 Cardiomyopathy, unspecified; I11.0 Hypertensive heart disease with heart failure; Z79.01 Long term (current) use of anticoagulants; Z87.891 Personal history of nicotine dependence; R79.1 Abnormal coagulation profile; M25.511 Pain in right shoulder; I35.0 Nonrheumatic aortic (valve) stenosis; I36.1 Nonrheumatic tricuspid (valve) insufficiency; M41.82 Other forms of scoliosis, cervical region; R09.02 Hypoxemia; R06.89 Other abnormalities of breathing
CPT/HCPCS: 36415; 71045; 80048; 80076; 82962; 83690; 83735; 83880; 84443; 84484; 85025; 85610; 92960; 93005; 93312; 93320; 93325; 97161; 97165; 99285; J7040; A4216; J1940; J2405

== ENCOUNTER → 2018-11-19 11:16 | Outpatient (CLI) | payer MEDICARE, SELFPAY ==
[2018-11-13 12:25] VITALS: BMI 26.0
[2018-11-19 13:06] LABS: Anion Gap 5 (5-15); BUN 23 mg/dL (7-18); BUN/Creat Ratio 32.8 RATIO (10-20); Calcium,Total 9.1 mg/dL (8.5-10.1); Chloride 103 mmol/L (98-107); EST Glomerular Filtration Rate 87 mL/min (>60); Est Glom Filt Rate - Afr Amer 106 mL/min (>60); Glucose 74 mg/dL (74-106); Potassium 4.2 mmol/L (3.5-5.1); Sodium Level 140 mmol/L (136-145)
[2018-11-19 13:17] LABS: International Normalized Ratio 4.5
== END ==
PROVIDERS: Family Provider Internal Medicine; PCP Internal Medicine; Referring Provider Internal Medicine Cardiovascular Disease; Visit Provider Internal Medicine Cardiovascular Disease
DX: I48.1 Persistent atrial fibrillation (principal); I48.2 Chronic atrial fibrillation; Z79.01 Long term (current) use of anticoagulants; I43 Cardiomyopathy in diseases classified elsewhere; I35.0 Nonrheumatic aortic (valve) stenosis; I36.1 Nonrheumatic tricuspid (valve) insufficiency
CPT/HCPCS: 36415; 80048; 85610

== ENCOUNTER 2018-11-23 10:20 | Day surgery (SDC) | payer MEDICARE, SELFPAY ==
[2018-10-31 22:08] VITALS: BMI 26.2
[2018-11-13 12:25] VITALS: BMI 26.0
[2018-11-20 08:00] VITALS: BMI 26.0
[2018-11-23 11:15] LABS: Prothrombin Time Fingerstick 29.2 SEC (11.9-14.4)
--- NOTE | 2018-11-23 13:27 | CARDIOVERS ---
Cardioversion Cardioversion: DC cardioversion. 73-year-old lady with a history of atrial fibrillation now persistent. Patient presented to the cardiac catheterization lab in the postabsorptive nonsedated state. The patient was seen by Dr. Montes of the critical care division. Patient was briefed about the intended procedure. Informed consent was obtained. Anterior posterior pads were applied. The patient then received 40 mg of intravenous propofol by Dr. Montes. 200 J of synchronized DC cardioversion energy were applied with prompt reversal to sinus rhythm. Patient tolerated the procedure well. Conclusion: Successful DC cardioversion to sinus rhythm.
--- NOTE | 2018-11-23 13:38 | PCM.HP.BLA ---
History and Physical Date of Admission: 11/23/18 History of Present Illness Details: SHERRELL DELGADO, is a 72 F who presents to the hospital for DC cardioversion. She has a history of atrial fibrillation with RVR and mild congestive heart failure. She was recently hospitalized for atrial fibrillation with a rapid ventricular response rate. She underwent a ARIS guided cardioversion with reversion to sinus rhythm. As you know she has had some issues with amiodarone and so we put her on the beta-karson and flecainide. Cardiac catheterization 2012 demonstrated no evidence of ischemia. She appears to be tolerating this well she has had no dizziness or diaphoresis no near syncope or syncope. Her echocardiogram demonstrated low normal ejection fraction. Her physical exam here today demonstrates clear lung jack irregular rate and rhythm and no pedal edema. Intake Vital Signs 11/13/18 Height 5 ft 1 in 11/13/18 Weight: 138 lb 11/13/18 Body Mass Index (BMI) 26.0 11/13/18 Blood Pressure 127/82 H 11/13/18 Respiratory Rate 18 11/13/18 Pulse Ox 104 Intake Visit Reasons: DC 11/04 Allergies diltiazem HCl [From Cardizem] Allergy (Verified 10/31/18 18:53) Swelling of face and neck naproxen Allergy (Verified 10/31/18 18:53) Swelling (whole body) amiodarone Adverse Reaction (Severe, Verified 10/31/18 18:53) Severe dyspnea after taking PO Amiodarone adhesive Adverse Reaction (Verified 10/31/18 18:53) Rash albuterol Adverse Reaction (Verified 10/31/18 18:53) Other codeine Adverse Reaction (Verified 10/31/18 18:53) Vomiting hydrocodone bitartrate [From Vicodin] Adverse Reaction (Verified 10/31/18 18:53) Vomiting morphine Adverse Reaction (Verified 10/31/18 18:53) Vomiting [facility] Medical History Paroxysmal atrial fibrillation (Chronic) Chronic diastolic (congestive) heart failure (Chronic) GERD (gastroesophageal reflux disease) (Chronic) Scoliosis of cervical spine (Chronic) Acute cholecystitis (Resolved) Atrial fibrillation with RVR (Resolved 10/31/18) Cardiomyopathy in other diseases classified elsewhere (Resolved) Non-rheumatic tricuspid valve insufficiency (Inactive) Nonrheumatic aortic valve stenosis (Inactive) Surgical History History of radiofrequency ablation procedure for cardiac arrhythmia (Resolved 07/27/15) History of cardioversion (Resolved 11/02/18) History of left heart catheterization (Resolved 03/15/13) Hx of cholecystectomy (Resolved) H/O hernia repair (Inactive) H/O neck surgery (Inactive) ovarian surgery (Inactive) Family History Sister Afib Father CAD (coronary artery disease) Brother CVA (cerebral vascular accident) Mother No problems noted. Sister No problems noted. Brother Wilsons disease Brother Wilsons disease Social History (Updated 11/13/18 @ 12:42 by Maxim Ibarra MD) Smoking Status: Former smoker alcohol intake: never substance use type: does not use caffeine: Yes Type: coffee Number of servings: 1 what type of physical activity do you participate in: walking frequency: daily seatbelt use: always do you feel safe at home: Yes ROS Const Const: Negative for fatigue, weakness, body ache, fever(s), headache(s), chills, frequent falls, night sweats, daytime sleepiness, difficulty sleeping, excessive sweating, weight gain, weight loss, increased appetite, poor appetite, anorexia or other Eyes Eyes: Negative for blind spots, loss of peripheral vision, transient loss of vision, blurry vision, change in vision, double vision, floaters, tunnel vision or other ENT ENT: Negative for headache(s) Cardio Chest Pain: No Resp Respiratory: Negative for SOB with activity, SOB at rest, SOB orthopnea\SOB lying down, Cough, Coughing up blood/hemoptysis, chest congestion, pain on inspiration, snoring, stridor, wheezing, crackles, paroxysmal nocturnal dyspnea or other GI GI: Negative nausea, vomiting, heartburn, constipation, belching, bloating, cramping, vomiting blood/hematemesis, bright, red blood in stools, black,tarry stools, loose stools, Difficulty Swallowing or other Neuro Neuro: Negative for frequent falls, headache(s), weakness, blurry vision or double vision Endo Endo: Negative for fatigue or excessive sweating Cardiology Exam Const Appearance: cooperative, healthy appearing, no acute distress, well developed and well groomed Nutritional Appearance: average body habitus and well nourished Orientation: alert, awake and oriented x3 Head Head: normal to inspection, normocephalic and atraumatic Ears: hearing grossly normal bilaterally and external ears normal Nose: external nose normal, nares normal, nasal mucous membranes and turbinates normal, septum normal, no nasal discharge Face and Sinus: face symmetric Mouth: oral mucosae normal, tongue normal, oropharynx normal and moist mucous membranes Teeth and gingiva: dentition normal Throat: posterior oropharynx normal, tonsils normal and uvula midline Eyes General: appearance normal, both eyes and all related structures Eyelids: eyelids normal Conjunctivae: conjunctivae normal Pupils: PERRL, normal by confrontation and accommodation normal EOM: EOM intact bilaterally Neck Neck: normal visual inspection, trachea midline and no JVD JVD: +5 Carotids: normal carotid upstroke and bounding pulses Chest Chest inspection: normal inspection of the chest, symmetric chest movement and normal respiratory effort Auscultation: Bilateral: Clear to Auscultation Cardio Palpation: normal PMI Rate: regular rate Rhythm: irregular rhythm Heart sounds: S1 normal, S2 normal and normal, physiologic split S2; negative rub, gallop or murmur GI GI: normal to inspection, soft, no hepatosplenomegaly and bowel sounds present Neuro General: alert, awake, oriented x3, gait normal, moves all extremities and no focal sensory deficit Skin Skin: no rashes or lesions noted Extremities Pulses: Normal: Right Femoral Pulse, Left Femoral Pulse, Right Dorsalis Pedis Pulse, Left Dorsalis Pedis Pulse, Right Posterior Tibial Pulse, Left Posterior Tibial Pulse, Right Radial Pulse, Left Radial Pulse Lower Extremity Edema: None: Bilateral Musculoskel Musculoskeletal: No joint tenderness Psych Psychological: normal affect Assessment & Plan 1. Persistent atrial fibrillation I48.1 Plan She does have evidence of persistent atrial fibrillation. Her ventricular response rate is better controlled at this time. My recommendation is for us to consider DC cardioversion . The risk benefits alternatives were explained to her she understands and agrees to proceed. Orders Orders: Cardioversion Today Basic Metabolic Profile (BMP) Today 2. Chronic diastolic (congestive) heart failure I50.32 Plan She does have a history of mild diastolic heart failure. She is on the diuretic which will be continued. I suspect this was due to her going into atrial for ablation with rapid ventricular response rate. She will continue on her diuretics for now. Orders Orders: Cardioversion Today Basic Metabolic Profile (BMP) Today Plan Detail Other Orders Orders: Cardioversion Today I48.0, Z79.01 Basic Metabolic Profile (BMP) Today I48.0, Z79.01 Follow Up 3 Months ([facility])
--- NOTE | 2018-11-23 13:41 | PCM.OP.PRO ---
Procedure Report Date of Procedure: 11/23/18 CONSCIOUS SEDATION REPORT DATE OF SERVICE: November 23, 2018 BRIEF HISTORY OF PRESENT ILLNESS: The patient is a 73-year-old female who presents to [facility] for an elective outpatient cardioversion due to underlying atrial fibrillation. The patient has undergone a prior cardioversion. She denies any previous anesthetic complications. Her last known ejection fraction was approximately 50%. She is therapeutically anticoagulated with an INR of 2.5. She denies a history of COPD, asthma or obstructive sleep apnea. PHYSICAL EXAMINATION: VITAL SIGNS: Reviewed and were acceptable. GENERAL: The patient is a female, in no apparent distress, speaking in full sentences. HEENT: Normocephalic, atraumatic. Mucous membranes are moist and pink. Good mouth opening noted. Trachea is midline. Good neck mobility. CHEST: S1, S2 irregularly irregular. No murmurs, rubs or gallops were noted. LUNGS: Clear to auscultation bilaterally without appreciable wheezes, rales or rhonchi. ABDOMEN: Soft, nontender, nondistended. Positive bowel sounds. EXTREMITIES: There is no clubbing, cyanosis or edema. ASA Class: II DESCRIPTION OF PROCEDURE: After confirmation of informed consent, the patient's anesthesia plan was reviewed in detail. Propofol was chosen. Risks and benefits were reviewed and the patient agreed to proceed. At 1308, the patient was given 40 mg of propofol. The patient achieved an appropriate level of sedation and was given a 200 joule synchronized cardioversion by Dr. Ibarra at the bedside. This was successful in achieving normal sinus rhythm. The patient was monitored until 1311, at which time she reached her baseline mental status and function. The patient tolerated the procedure well. COMPLICATIONS: None ESTIMATED BLOOD LOSS: None RECOMMENDATIONS: Okay to recover in usual fashion. Code Visit 9xxxx: Other Procedure See Report - [id number]
== END 2018-11-23 14:26 | disposition home or self-care (01) ==
LOC: CLSP 10:21
PROVIDERS: Family Provider Internal Medicine; PCP Internal Medicine; Referring Provider Internal Medicine Cardiovascular Disease; Visit Provider Internal Medicine Cardiovascular Disease
DX: I48.1 Persistent atrial fibrillation (principal); I50.32 Chronic diastolic (congestive) heart failure; K21.9 Gastro-esophageal reflux disease without esophagitis; Z87.891 Personal history of nicotine dependence
CPT/HCPCS: 36416; 85610; 92960; 93005; J7040

== ENCOUNTER 2018-11-30 15:12 | Outpatient (RCR) | payer MEDICARE, SELFPAY ==
[2018-10-31 22:08] VITALS: BMI 26.2
[2018-11-09 11:23] LABS: International Normalized Ratio 6.2
[2018-11-11 14:56] LABS: Prothrombin Time (Protime)PT. 42.4 SECONDS (11.7-14.9)
[2018-11-11 15:27] LABS: International Normalized Ratio 4.4
[2018-11-13 11:00] LABS: Prothrombin Time (Protime)PT. 35.4 SECONDS (11.7-14.9)
[2018-11-13 11:06] LABS: International Normalized Ratio 3.5
[2018-11-30 15:25] LABS: Prothrombin Time Fingerstick 35.6 SEC (11.9-14.4)
== END 2018-12-09 16:00 | disposition home or self-care (01) ==
LOC: LAB 15:12
PROVIDERS: Family Provider Internal Medicine; PCP Internal Medicine; Referring Provider Internal Medicine Cardiovascular Disease; Visit Provider Internal Medicine Cardiovascular Disease
DX: I48.0 Paroxysmal atrial fibrillation (principal)
CPT/HCPCS: 36415; 36416; 85610

== ENCOUNTER 2019-03-30 15:40 | Outpatient (RCR) | payer MEDICARE, SELFPAY ==
[2018-11-20 08:00] VITALS: BMI 26.0
[2019-02-16 15:21] VITALS: BMI 24.9
[2019-03-30 16:11] LABS: Prothrombin Time Fingerstick 29.7 SEC (11.9-14.4)
== END 2019-03-30 18:00 | disposition home or self-care (01) ==
LOC: LAB 15:40
PROVIDERS: Family Provider Internal Medicine; PCP Internal Medicine; Referring Provider Internal Medicine Cardiovascular Disease; Visit Provider Internal Medicine Cardiovascular Disease
DX: I48.0 Paroxysmal atrial fibrillation (principal)
CPT/HCPCS: 36416; 85610

== ENCOUNTER 2019-07-28 16:35 | Outpatient (RCR) | payer MEDICARE, SELFPAY ==
[2019-02-16 15:21] VITALS: BMI 24.9
== END 2019-07-28 18:00 | disposition home or self-care (01) ==
LOC: LAB 16:35
PROVIDERS: Family Provider Internal Medicine; PCP Internal Medicine; Referring Provider Internal Medicine Cardiovascular Disease; Visit Provider Internal Medicine Cardiovascular Disease
DX: I48.0 Paroxysmal atrial fibrillation (principal)
CPT/HCPCS: 36416; 85610

== ENCOUNTER 2019-08-23 14:46 | Outpatient (RCR) | payer MEDICARE, SELFPAY ==
[2019-02-16 15:21] VITALS: BMI 24.9
[2019-08-23 15:01] LABS: Prothrombin Time Fingerstick 26.5 SEC (11.9-14.4)
== END 2019-09-09 18:00 | disposition home or self-care (01) ==
LOC: LAB 14:46
PROVIDERS: Family Provider Internal Medicine; PCP Internal Medicine; Referring Provider Internal Medicine Cardiovascular Disease; Visit Provider Internal Medicine Cardiovascular Disease
DX: I48.0 Paroxysmal atrial fibrillation (principal)
CPT/HCPCS: 36416; 85610

== ENCOUNTER 2019-09-24 15:47 | Outpatient (RCR) | payer MEDICARE, SELFPAY ==
[2019-02-16 15:21] VITALS: BMI 24.9
[2019-09-10 15:51] LABS: Prothrombin Time Fingerstick 21.3 SEC (11.9-14.4)
[2019-09-27 08:26] LABS: Prothrombin Time Fingerstick 24.7 SEC (11.9-14.4)
== END 2019-09-24 18:00 | disposition home or self-care (01) ==
LOC: LAB 15:47
PROVIDERS: Family Provider Internal Medicine; PCP Internal Medicine; Referring Provider Internal Medicine Cardiovascular Disease; Visit Provider Internal Medicine Cardiovascular Disease
DX: I48.0 Paroxysmal atrial fibrillation (principal)
CPT/HCPCS: 36416; 85610

== ENCOUNTER 2019-10-12 16:07 | Outpatient (RCR) | payer MEDICARE, SELFPAY ==
[2019-09-14 10:24] VITALS: BMI 24.5
[2019-10-12 16:20] LABS: Prothrombin Time Fingerstick 22.8 SEC (11.9-14.4)
== END 2019-10-12 18:00 | disposition home or self-care (01) ==
LOC: LAB 16:07
PROVIDERS: Family Provider Internal Medicine; PCP Internal Medicine; Referring Provider Internal Medicine Cardiovascular Disease; Visit Provider Internal Medicine Cardiovascular Disease
DX: I48.0 Paroxysmal atrial fibrillation (principal)
CPT/HCPCS: 36416; 85610

== ENCOUNTER 2019-11-24 16:04 | Outpatient (RCR) | payer MEDICARE, SELFPAY ==
[2019-09-14 10:24] VITALS: BMI 24.5
[2019-11-25 09:31] LABS: Prothrombin Time Fingerstick 38.2 SEC (11.9-14.4)
== END 2019-11-24 18:00 | disposition home or self-care (01) ==
LOC: LAB 16:04
PROVIDERS: Family Provider Internal Medicine; PCP Internal Medicine; Referring Provider Internal Medicine Cardiovascular Disease; Visit Provider Internal Medicine Cardiovascular Disease
DX: I48.0 Paroxysmal atrial fibrillation (principal); Z79.01 Long term (current) use of anticoagulants
CPT/HCPCS: 36416; 85610

== ENCOUNTER 2020-06-20 14:14 | Outpatient (RCR) | payer OTHER, MEDICARE, SELFPAY ==
[2019-09-14 10:24] VITALS: BMI 24.5
--- NOTE | 2020-06-20 15:26 | HP.PTEVAL_ITS ---
Patient's Visit Information SHERRELL DELGADO is a 75 year old F referred to Physical Therapy by Dr. Dmitri Cortés DPM with a diagnosis of L ankle instability; sprain of ARFL L ankle. Date of Evaluation: 06/20/20 Physical Therapist: Sawyer Wagner, PT, Cert MDT, OCS - Visit Plan Frequency: 1x/Week Duration: 4 Weeks Plan: 1x/week for 4 weeks per POC. PT Intervention: Balance/proprioception, LE strength, ankle AROM, gait, stair negotiation. - Subjective Patient is a 75 year old female presenting to the clinic with L ATFL ankle sprain. States she stepping off a curb on 06/05/2020 and rolled her ankle. States she went to the clinic that day to get it looked at. Left the clinic wearing an air cast. Reports she went to the specialist the day after and had to wear a boot. Currently wearing lace up brace on R ankle all day. States she is getting surgery on 06/21/2020 for R toe nail. Aggravating factors: Ankle ROM and stairs. Walks up stairs with step to pattern. Denies any numbness and tingling in L LE. States sleeping is okay but ankle swells at night. Hx of R ankle fracture, sciatica, R hip problems, B bunioectomy. Returning to work next week. Vocation: [facility] [employer] - Pain Left Ankle Pain Intensity (Out of 10): 1 Pain Intensity Range: 10 - Objective Gait: Antalgic gait on L, slight L limp. Sensation: Intact to light touch bilateral LE. Observation: Pes cavus, Bruising on toes 2-4. Palpation: TTP L ATFL. LE MMT: R hip flexion 4+/5, quad 5/5, ham 4+/5, DF 5/5, PF 5/5. L hip flexion 4+/5, quad 5/5, ham 4/5, DF 5/5, PF 5/5. AROM: L ankle PF 45 degrees, DF 5 degrees, Inversion 10 degrees, Eversion 3 degrees. SLS balance: 3 sec on L, 4 sec on R - Goals Goal 1:: Patient will demonstrate independence with HEP. Goal Time Frame: 4-6 Weeks Goal 2:: Patient will demonstrate improved ankle AROM in all planes for improved functional mobility and return to work. Goal Time Frame: 4-6 Weeks Goal 3:: Patient will report ability to negotiate stairs with reciprocal pattern for improved functional mobility. Goal Time Frame: 4-6 Weeks Goal 4:: Patient will wean off of brace for improved mobility. Goal Time Frame: 4-6 Weeks Goal 5:: Patient will improve LEFS score by 5 or > points for improved QOL. Goal Time Frame: 4-6 Weeks Goal 6:: Patient will demonstrate SLS of 10 seconds for improved ambulation. Goal Time Frame: 4-6 Weeks - Rehabilitation Potential Physical Therapy Diagnosis: Patient is a 75 year old female presenting to the clinic with ankle weakness and limited ROM after ankle sprain on 06/05/2020. Rehabilitation Potential: Good - Anticipated Interventions Patient/Client Instruction: Educate patient on: Condition, Plan of Care For the Purpose of:: To decrease pain, To decrease swelling/inflammation, To increase ROM, To improve muscle performance and motor function, To improve ability to perform ADL's, To increase tolerance to activity/condition/position, To improve ability of physical actions for home/community/work/leisure, To improve gait and locomotor functions, To increase flexibility/ROM, To improve balance, To improve safety with gait, To reduce risk of recurrence, To improve ability to perform tasks related to life management, To improve tolerance to ADL's Therapeutic Exercise to Include: Strength training, Balance training, Flexibilty training, Gait and locomotor training, Active ROM Comment: Ankle ROM, Gait, Stairs, Balance For the Purpose of:: To decrease pain, To decrease swelling/inflammation, To increase ROM, To improve muscle performance and motor function, To increase tolerance to activity/condition/position, To improve ability of physical actions for home/community/work/leisure, To improve gait and locomotor functions, To increase flexibility/ROM, To improve balance, To improve safety with gait, To reduce risk of recurrence, To improve ability to perform tasks related to life management, To improve tolerance to ADL's Cryotherapy (ice pack, ice massage): Yes Thermo therapy (hot pack): Yes Vasopneumatic device: Yes For the Purpose of:: To decrease pain, To decrease swelling/inflammation, To increase ROM, To improve muscle performance and motor function, To increase tolerance to activity/condition/position, To improve ability of physical actions for home/community/work/leisure, To improve gait and locomotor functions, To increase flexibility/ROM, To improve balance, To improve safety with gait, To reduce risk of recurrence, To improve ability to perform tasks related to life management, To improve tolerance to ADL's Thank you for the opportunity to evaluate your patient. For Medicare and Medicare HMO plans, please review the plan of care and approve it. It will need to be FAXED BACK to us at [phone] for Medicare purposes. For Medicare only, by signing this I certify the plan of care. Please let me know if there are questions or concerns regarding this plan of care. Physician Sign ature: Date:
--- NOTE | 2020-12-19 14:02 | HP.PT.NRP ---
SHERRELL DELGADO was seen in my office for initial evaluation on 06/20/20. The following Plan of Care was established for this patient: Initial Frequency: 1x/Week Initial Duration: 4 Weeks Patient/Client Instruction: Educate patient on: Condition, Plan of Care For the Purpose of:: To decrease pain, To decrease swelling/inflammation, To increase ROM, To improve muscle performance and motor function, To improve ability to perform ADL's, To increase tolerance to activity/condition/position, To improve ability of physical actions for home/community/work/leisure, To improve gait and locomotor functions, To increase flexibility/ROM, To improve balance, To improve safety with gait, To reduce risk of recurrence, To improve ability to perform tasks related to life management, To improve tolerance to ADL's Therapeutic Exercise to Include: Strength training, Balance training, Flexibilty training, Gait and locomotor training, Active ROM For the Purpose of:: To decrease pain, To decrease swelling/inflammation, To increase ROM, To improve muscle performance and motor function, To increase tolerance to activity/condition/position, To improve ability of physical actions for home/community/work/leisure, To improve gait and locomotor functions, To increase flexibility/ROM, To improve balance, To improve safety with gait, To reduce risk of recurrence, To improve ability to perform tasks related to life management, To improve tolerance to ADL's Cryotherapy (ice pack, ice massage): Yes Thermo therapy (hot pack): Yes Vasopneumatic device: Yes For the Purpose of:: To decrease pain, To decrease swelling/inflammation, To increase ROM, To improve muscle performance and motor function, To increase tolerance to activity/condition/position, To improve ability of physical actions for home/community/work/leisure, To improve gait and locomotor functions, To increase flexibility/ROM, To improve balance, To improve safety with gait, To reduce risk of recurrence, To improve ability to perform tasks related to life management, To improve tolerance to ADL's This patient was last seen in our office . Pertinent comments regarding their Physical therapy will appear below: Patient was seen for PT for ankle sprain and instability for HEP. At this point I will be discontinuing this patient from physical therapy. I would be happy to see this patient again in the future if found appropriate by the physician. Thank you! Sawyer Wagner, PT, Cert MDT, OCS Balance/Gait/Functional tests - Balance/Special Test Scores Lower Extremity Functional Score: 63
== END 2020-06-20 19:00 | disposition home or self-care (01) ==
LOC: PT 14:14
PROVIDERS: PCP Internal Medicine; Referring Provider Podiatrist Foot & Ankle Surgery; Visit Provider Podiatrist Foot & Ankle Surgery
DX: M25.372 Other instability, left ankle (principal); S93.492D Sprain of other ligament of left ankle, subsequent encounter
CPT/HCPCS: 97110; 97161

== ENCOUNTER 2020-06-21 09:56 | Day surgery (SDC) | payer OTHER, MEDICARE, SELFPAY ==
[2019-09-14 10:24] VITALS: BMI 24.5
[2020-06-21] VITALS (7 sets, daily range): BP systolic 117–142; BP diastolic 48–74; PULSE 50–55; RESP 16; TEMP 36.2–36.7; O2SAT 93–98; BMI 24.1
[2020-06-21] MEDS: Lactated Ringers 1,000 ML 100 ML IV (10:47)
[2020-06-21] MEDS: Lidocaine 1% (20 ml mdv) 20 ML Vial (11:45)
[2020-06-21] MEDS: Bacitracin 500 UNITS/GM PACKET (11:45)
--- NOTE | 2020-06-21 11:53 | DCINST_ITS ---
Discharge Activity: Return to Normal Activity Call your doctor if your incision/area has: Continuous Slow Oozing, Sudden Increased Bleeding, Increased Pain/ Swelling, Increased Redness, Foul Smelling Discharge Call your doctor if you observe: Fever of 101 or Higher, Coldness, Increased Pain Cleanse incision/area with: Soap & Water - soak right great toe in soap and water for 10-15 minutes daily. apply neosporin and band aid to the toe daily Allergies/Adverse Reactions: Allergies diltiazem HCl [From Cardizem] Allergy (Verified 06/21/20) Swelling of face and neck naproxen Allergy (Verified 06/21/20) Swelling (whole body) amiodarone Adverse Reaction (Severe, Verified 06/21/20) Severe dyspnea after taking PO Amiodarone adhesive Adverse Reaction (Verified 06/21/20) Rash albuterol Adverse Reaction (Verified 06/21/20) Other codeine Adverse Reaction (Verified 06/21/20) Vomiting hydrocodone bitartrate [From Vicodin] Adverse Reaction (Verified 06/21/20) Vomiting morphine Adverse Reaction (Verified 06/21/20) Vomiting Medications to take at Discharge Multivitamins,Therapeutic [Multivitamin] 1 tab PO DAILY 03/15/13 Cholecalciferol (VIT D3) [Vitamin D3] 1,000 unit PO DAILY 01/09/15 Calcium Carbonate [Calcium] 500 mg PO DAILY 10/08/16 omega-3 fatty acids 1,000 mg capsule 1,000 mg PO DAILY 03/17/18 flecainide 100 mg tablet 100 mg PO BID #180 tab 05/15/20 furosemide 40 mg tablet 40 mg PO .COMPLEX #180 tab 05/15/20 metoprolol succinate 25 mg tablet,extended release 24 hr 25 mg PO DAILY #90 tab 05/15/20 potassium chloride 20 mEq tablet,extended release(part/cryst) 20 meq PO DAILY #180 tab 05/15/20 Omeprazole 20 mg PO PRN PRN 06/15/20 Apixaban [Eliquis] 5 mg PO BID 06/21/20 Primary Care Physician: Minerva Manley MD [Primary Care Provider] - Dmitri Cortés DPM [STAFF PHYSICIAN] - Test Results: Test results from this visit will be discussed in further detail at your follow- up appointment, if applicable. Proposed Discharge Date: 06/21/20
--- NOTE | 2020-06-22 07:56 | PCM.OPRPT ---
Report of Operation Date of Procedure: 06/21/20 Pre-Operative Diagnosis: onychomycosis, right hallux Post-Operative Diagnosis: onychomycosis, right hallux Surgery/Procedure Performed:: total nail phenol matrixectomy, right hallux Description of Surgical Findings:: successful removal of right hallux toenail Type of Anesthesia:: Local MAC Estimated Blood Loss (mL): 1 ml Description of Procedure: Patient is a pleasant 75 year old female who complains of thick, discolored, ingrowing, painful toenail of right hallux. this has been causing her issues for considerable duration. She has been followed by me for left ankle sprain and asked if the right hallux toenail could be removed. I discussed options for her toenail not limited to debridement periodically vs removal via phenol matrixectomy. I discussed risks of the procedure not limited to infection, pain, swelling, bleeding, slow wound healing, deep bone infection, recurrence of part or the entire toenail, loss of toe. I also discussed risk of blistering and/or burn from phenol. I discussed with patient at great length post-op care of her toe following procedure. All questions have been answered. Pvr has been performed and patient has adequate perfusion to heal a toenail removal. She was offered procedure in my office but was reluctant so she elected to have performed under light sedation. She consents to proceed. Patient was transferred from pre-op holding area and placed on the operating room table in supine position. she was identified by name and procedure. She was placed under mac anesthesia and the right foot was prepped and draped in the usual aseptic technique. Time out was performed making note of the procedure and personal involved. Attention was then directed to the right hallux. 3 cc of 2% lidocaine plain was administered to the right hallux. following induction of local anesthesia, a digital tournicot was applied to the right hallux. timing of tournicot application was recorded by nursing staff. Using an elevator, the entire nail was freed from underlying nail bed without injury and the nail was completely removed. a curette was used to assure no remaining spicule. Following removal of all nail plate and debris, three applications of phenol was administered x 30 seconds each application. Following application of phenol, the toe was irrigated. The digital tournicot was removed and recorded in chart at time of removal. Hemostasis was achieved. Bacitracin/adaptic was applied to the right hallux followed by jose luis mayo and henrik. patient was awakened and found to be in stable condition. she was transferred from operating room to the pacu in stable condition. she was discharged once stable. she will perform local wound care and soaks of the toe daily. I will have patient f/u in my clinic in one week - Complications none
== END 2020-06-21 12:57 | disposition home or self-care (01) ==
LOC: SDC 09:57 → AC 09:57
PROVIDERS: PCP Internal Medicine; Referring Provider Podiatrist Foot & Ankle Surgery; Visit Provider Podiatrist Foot & Ankle Surgery
PROC: (CPT 11750; principal; 2020-06-21 11:15)
DX: B35.1 Tinea unguium (principal); I48.91 Unspecified atrial fibrillation; I10 Essential (primary) hypertension; J43.1 Panlobular emphysema; K21.9 Gastro-esophageal reflux disease without esophagitis; Z79.01 Long term (current) use of anticoagulants; Z79.899 Other long term (current) drug therapy; Z87.891 Personal history of nicotine dependence; Z20.822 Contact with and (suspected) exposure to COVID-19
CPT/HCPCS: 00400; 11750; 87426; C9803; J7120; J2405

== ENCOUNTER → 2021-01-19 13:21 | Outpatient (CLI) | payer OTHER, SELFPAY ==
--- NOTE | 2021-01-19 13:32 | RAD_ITS ---
INDICATION: NECK PAIN EXAMINATION/TECHNIQUE: X-RAY - XR Spine Cervical AP and lateral Views COMPARISON: None. FINDINGS: There is hyperlordosis of the cervical spine with the apex at the level of C4. C3-C5 anterior fusion plate hardware with osseous bridging of the endplates and posterior elements at these levels. No perihardware lucency. No prevertebral soft tissue swelling. Overall bone mineral density appears decreased. No fracture visible. No focal osseous lesion. Advanced facet arthropathy at mid and lower cervical spine with degenerative spondylosis. There is grade 1 anterolisthesis of C6 relative to C7 and C7 relative to T1. Significant degenerative endplate sclerosis and moderate osteophytosis at C6-7. Note of some intimal calcifications at the expected level of the left carotid bulb. Lung apices are clear. Note of thoracic aortic arch intimal calcifications. RAD/Cerv Spine 2 or 3 Views IMPRESSION: Significant degenerative changes of the spine status post C3-C5 fusion. No fracture or malalignment. Electronically Signed: Manuel Gamboa DO at 21:31 EDT Tel , Service support ,
== END ==
PROVIDERS: PCP Internal Medicine; Referring Provider Orthopaedic Surgery; Visit Provider Orthopaedic Surgery
DX: M46.92 Unspecified inflammatory spondylopathy, cervical region (principal); M47.812 Spondylosis without myelopathy or radiculopathy, cervical region
CPT/HCPCS: 72040

== ENCOUNTER → 2021-02-01 16:55 | Outpatient (CLI) | payer OTHER, MEDICARE, SELFPAY ==
--- NOTE | 2021-02-01 16:59 | MRI_ITS ---
STUDY: MRI LEFT SHOULDER REASON FOR EXAM: Left shoulder pain for 4 weeks. TECHNIQUE: Standardized fat and water weighted pulse sequences were obtained in all 3 orthogonal planes. COMPARISON: None. FINDINGS: There is tendinosis of the supraspinatus tendon and a full-thickness tear of the distal anterior supraspinatus tendon (T2 coronal images 9, 10; T2 sagittal image 18) measuring approximately 1.1 x 0.9 cm (length x width). There is infraspinatus tendinosis (T2 coronal image 14) without discrete tendon tear. Normal subscapularis tendon. Normal teres minor tendon. There is edema in the supraspinatus muscle (T2 coronal images 7-9). Normal infraspinatus muscle. Normal subscapularis muscle. Normal teres minor muscle. There is glenohumeral arthrosis with chondral thinning and subchondral cystic change of the posterior glenoid (T2 coronal images 12, 13). There is a glenohumeral joint effusion. There is mild cystic change of the posterior aspect of the greater tuberosity. Normal biceps labral complex. There is mild tendinosis of the intracapsular long biceps tendon (T2 sagittal images 11-13). There is degeneration of the labrum. Normal capsulo- ligamentous complex. There is acromioclavicular arthrosis with mild hypertrophic changes (T2 sagittal image 12). There is a Type II morphology (curved), with a neutral orientation. There is subacromial-subdeltoid bursal fluid. Normal visualized coracohumeral and coracoacromial ligaments. Normal deltoid muscle. Normal trapezius muscle. MRI/Upper Ext Joint Only(Routine) IMPRESSION: Full-thickness tear and tendinosis of the supraspinatus tendon. Infraspinatus tendinosis. Edema in the supraspinatus muscle. Glenohumeral arthrosis with degeneration of the labrum. Mild tendinosis of the long biceps tendon. Acromioclavicular arthrosis. Glenohumeral joint fluid communicating with the subacromial-subdeltoid bursa. Electronically Signed: Gareth Mckeon MD at 7:23 EDT Tel , Service support ,
--- NOTE | 2021-02-01 16:59 | MRI_ITS ---
EXAM: MR CERVICAL SPINE WITHOUT INTRAVENOUS CONTRAST CLINICAL INDICATION: pain TECHNIQUE: Multiplanar and multisequence MR images of the cervical spine without intravenous contrast were performed. This report was created using INPH[employer] report generation technology. COMPARISON: xr 9 FINDINGS: VERTEBRAE: Anterior fusion plate noted at C3, C4, C5. Minimal overlying metal artifact. Grade 1 anterolisthesis of C6 on C7. This measures 3.6 mm. Multilevel facet arthropathy of the cervical spine. Multilevel posterior disc bulge osteophyte complex. No significant spinal stenosis. Normal craniocervical junction and cervicothoracic junction. There is preservation of the normal cervical lordosis. INTERSPACES: Diffuse disc desiccation. SPINAL CORD: Unremarkable in signal and morphology. SOFT TISSUES: Unremarkable. No prevertebral soft tissue swelling. LYMPH NODES: Unremarkable. There is no cervical adenopathy. DISCS/SPINAL CANAL/NEURAL FORAMINA: C2-C3: Unremarkable. Normal disc height and morphology. Normal spinal canal and neuroforamina. C3-C4: Unremarkable. Normal disc height and morphology. Normal spinal canal and neuroforamina. C4-C5: Unremarkable. Normal disc height and morphology. Normal spinal canal and neuroforamina. C5-C6: Unremarkable. Normal disc height and morphology. Normal spinal canal and neuroforamina. C6-C7: Unremarkable. Normal disc height and morphology. Normal spinal canal and neuroforamina. C7-T1: Unremarkable. Normal disc height and morphology. Normal spinal canal and neuroforamina. MRI/Spine Cervical (Routine) IMPRESSION: No acute findings in the cervical spine. Electronically Signed: Yeyo Moran MD at 9:38 EDT , Service support ,
== END ==
PROVIDERS: PCP Internal Medicine; Visit Provider Orthopaedic Surgery
DX: M75.122 Complete rotator cuff tear or rupture of left shoulder, not specified as traumatic (principal); M19.012 Primary osteoarthritis, left shoulder; M47.12 Other spondylosis with myelopathy, cervical region
CPT/HCPCS: 72141; 73221

== ENCOUNTER → 2021-02-12 10:09 | Outpatient (CLI) | payer OTHER, MEDICARE, SELFPAY ==
--- NOTE | 2021-02-12 10:15 | RAD_ITS ---
STUDY: X-RAY - LEFT SHOULDER REASON FOR EXAM: Female, 75 years old. Shoulder pain. TECHNIQUE: 4 view(s) of the shoulder. COMPARISON: None. FINDINGS: Osteopenia. Mild arthrosis of the glenohumeral and acromioclavicular joints. Minimal sclerosis of the greater tuberosity. The soft tissue structures are unremarkable. Normal visualized pulmonary apex. RAD/Shoulder min 2 Views IMPRESSION: Osteopenia with mild arthrosis of the glenohumeral and acromioclavicular joints. Minimal sclerosis of the greater tuberosity. No acute abnormality, erosive changes or periostitis. Electronically Signed: Lázaro Olmstead MD at 11:07 EDT , Service support ,
== END ==
PROVIDERS: PCP Internal Medicine; Referring Provider Orthopaedic Surgery; Visit Provider Orthopaedic Surgery
DX: M75.102 Unspecified rotator cuff tear or rupture of left shoulder, not specified as traumatic (principal)
CPT/HCPCS: 73030

== ENCOUNTER 2021-02-26 14:30 | Outpatient (RCR) | payer OTHER, MEDICARE, SELFPAY ==
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
--- NOTE | 2021-03-08 11:24 | HP.PT.NRP ---
SHERRELL DELGADO was seen in my office for initial evaluation on 02/16/21. The following Plan of Care was established for this patient: Initial Frequency: 2-3x /Week Initial Duration: 4-6 Weeks Patient/Client Instruction: Educate patient on: Condition, Plan of Care, Risk Factors For the Purpose of:: To improve self management Therapeutic Exercise to Include: Strength training, Body mechanics, Postural training, Flexibilty training, Neuromotor development, Passive ROM, Active ROM, Scapular Strength/Stabilization For the Purpose of:: To decrease pain, To increase ROM, To improve muscle performance and motor function, To increase tolerance to activity/condition/position, To improve ability of physical actions for home/community/work/leisure Cryotherapy (ice pack, ice massage): Yes Thermo therapy (hot pack): Yes Ultrasound (thermal/non thermal): Yes For the Purpose of:: To decrease pain, To decrease swelling/inflammation, To improve nutrient delivery to tissue This patient was last seen in our office . Pertinent comments regarding their Physical therapy will appear below: This patient has not returned to Physical Therapy and is appropriate to return to MD for further follow-up as needed. She called and cancelled remaining neri'ts apparently stating she is back to work and can't come to neri'ts. At this point I will be discontinuing this patient from physical therapy. I would be happy to see this patient again in the future if found appropriate by the physician. Thank you! Dona Remy, PT, Cert MDT Balance/Gait/Functional tests - Balance/Special Test Scores Quick DASH Score: [phone]
== END 2021-02-26 19:00 | disposition home or self-care (01) ==
LOC: PT 14:30
PROVIDERS: PCP Internal Medicine; Referring Provider Orthopaedic Surgery; Visit Provider Orthopaedic Surgery
DX: M75.102 Unspecified rotator cuff tear or rupture of left shoulder, not specified as traumatic (principal); M19.012 Primary osteoarthritis, left shoulder
CPT/HCPCS: 97035; 97162; 97530

== ENCOUNTER → 2021-04-30 14:58 | Outpatient (CLI) | payer OTHER, MEDICARE, SELFPAY ==
--- NOTE | 2021-04-30 15:15 | RAD_ITS ---
STUDY: X-RAY - PELVIS AND LEFT HIP REASON FOR EXAM: Female, 75 years old. LT HIP PAIN TECHNIQUE: views of the pelvis and hip. COMPARISON: None. FINDINGS: There is a non-specific bowel gas pattern. Normal visualized soft tissue structures. Normal bilateral iliac wings, sacroiliac joints and visualized sacrum. Normal bilateral superior and inferior pubic rami. Normal pubic symphysis. Normal bilateral ischial tuberosities. There are osteoarthritic changes of the femoral head with marginal osteophyte formation. There is osteoarthritic spur formation of the acetabular rim. There is mild articular joint space narrowing of the hip. RAD/HIP, UNI W/ Pelvis 2-3 Views IMPRESSION: Mild degenerative changes. No acute findings Electronically Signed: Jovany Thomas DO at 6:27 EST Tel , Service support ,
== END ==
PROVIDERS: PCP Internal Medicine; Referring Provider Anesthesiology Pain Medicine; Visit Provider Anesthesiology Pain Medicine
DX: M16.12 Unilateral primary osteoarthritis, left hip (principal)
CPT/HCPCS: 73502

== ENCOUNTER 2021-06-22 11:11 | Outpatient (CLI) | payer OTHER, MEDICARE, SELFPAY ==
--- NOTE | 2021-06-22 11:14 | RAD_ITS ---
STUDY: X-RAY - RIGHT SHOULDER REASON FOR EXAM: Female, 76 years old. Shoulder pain. TECHNIQUE: 4 view(s) of the shoulder. COMPARISON: None. FINDINGS: Osteopenia. Mild arthrosis of the glenohumeral joint. Mild arthrosis of the AC joint. Normal humeral head and visualized proximal humerus. The soft tissue structures are unremarkable. Normal visualized pulmonary apex. RAD/Shoulder min 2 Views IMPRESSION: Osteopenia with osteoarthritic changes of the glenohumeral and acromioclavicular joints. No acute abnormality or erosive changes. Electronically Signed: Lázaro Olmstead MD at 12:42 EST ,
== END 2021-06-22 23:59 | disposition home or self-care (01) ==
LOC: MTRAD 11:14
PROVIDERS: PCP Internal Medicine; Referring Provider Orthopaedic Surgery; Visit Provider Orthopaedic Surgery
DX: M19.011 Primary osteoarthritis, right shoulder (principal)
CPT/HCPCS: 73030

== ENCOUNTER → 2021-12-21 | Outpatient (CLI) | payer OTHER, MEDICARE, SELFPAY ==
[2021-12-21 12:42] LABS: Absolute Lymphocyte Count 2.79 X10^3/uL (0.83-4.51); Absolute Neutrophil Count 3.7 X10^3/uL (2.0-7.7); Anion Gap 4 (5-15); BUN 32 mg/dL (7-18); Basophil# 0.02 X10^3/uL; Basophil% 0.3 % (0-1); Calcium,Total 9.5 mg/dL (8.5-10.1); Chloride 104 mmol/L (98-107); Creatinine, Serum 0.73 mg/dL (0.55-1.02); EST Glomerular Filtration Rate 83 mL/min (>60); Eosinophil# 0.17 X10^3/uL; Eosinophils% 2.3 % (0-5); Est Glom Filt Rate - Afr Amer 101 mL/min (>60); Glucose 93 mg/dL (74-106); Hemoglobin 12.2 g/dL (12.0-15.0); Lymphocyte # 2.79 X10^3/ul (0.83-4.51); Lymphocyte % 38.3 % (19-41); Mean Corpuscular Hgb 30.8 pg (27.0-32.0); Mean Corpuscular Volume 93.4 fL (81-99); Mean Platelet Vol. 10.2 fl (6.2-12.0); Monocyte# 0.63 X10^3/uL; Monocyte% 8.6 % (0-10); NRBC Flagged by Analyzer 0 % (0-5); Neutrophil # 3.65 X10^3/uL (2.7-7.7); Neutrophil % 50.1 % (47-70); Platelet Count 333 K/mm3 (150-450); Potassium 4.1 mmol/L (3.5-5.1); RBC Distribution Width CV 12.4 % (11.6-14.6); RBC Distribution Width SD 42.8 fl (35.1-43.9); Red Blood Count 3.96 M/mm3 (4.2-5.4); Sodium Level 140 mmol/L (136-145); White Blood Count 7.3 K/mm3 (4.4-11.0)
[2021-12-21 12:47] LABS: BNP,B-Type NATRIURETIC PEPTIDE 124.3 pg/mL (0-100)
== END | disposition home or self-care (01) ==
LOC: LAB 11:24
PROVIDERS: PCP Internal Medicine; Visit Provider Physician Assistant Medical
DX: I48.0 Paroxysmal atrial fibrillation (principal); I50.32 Chronic diastolic (congestive) heart failure
CPT/HCPCS: 36415; 80048; 83880; 85025

== ENCOUNTER → 2022-02-27 | Outpatient (CLI) | payer OTHER, MEDICARE, SELFPAY ==
[2022-02-27 16:38] LABS: Absolute Lymphocyte Count 3.18 X10^3/uL (0.83-4.51); Absolute Neutrophil Count 3.3 X10^3/uL (2.0-7.7); Basophil# 0.02 X10^3/uL; Basophil% 0.3 % (0-1); Eosinophil# 0.18 X10^3/uL; Eosinophils% 2.5 % (0-5); Hemoglobin 12.3 g/dL (12.0-15.0); Lymphocyte # 3.18 X10^3/ul (0.83-4.51); Lymphocyte % 44.3 % (19-41); Mean Corp Hgb Conc 33.2 g/dL (32-36); Mean Corpuscular Hgb 30.8 pg (27.0-32.0); Mean Corpuscular Volume 92.5 fL (81-99); Mean Platelet Vol. 9.9 fl (6.2-12.0); Monocyte# 0.53 X10^3/uL; Monocyte% 7.4 % (0-10); NRBC Flagged by Analyzer 0 % (0-5); Neutrophil # 3.26 X10^3/uL (2.7-7.7); Neutrophil % 45.4 % (47-70); Platelet Count 276 K/mm3 (150-450); RBC Distribution Width CV 12.7 % (11.6-14.6); RBC Distribution Width SD 43.3 fl (35.1-43.9); White Blood Count 7.2 K/mm3 (4.4-11.0)
[2022-02-27 17:17] LABS: Anion Gap 4 (5-15); BUN 35 mg/dL (7-18); BUN/Creat Ratio 40.9 RATIO (10-20); Calcium,Total 9.5 mg/dL (8.5-10.1); Chloride 109 mmol/L (98-107); Creatinine, Serum 0.86 mg/dL (0.55-1.02); EST Glomerular Filtration Rate 69 mL/min (>60); Est Glom Filt Rate - Afr Amer 83 mL/min (>60); Glucose 114 mg/dL (74-106); Magnesium 2.2 mg/dL (1.6-2.6); Potassium 4.4 mmol/L (3.5-5.1); Sodium Level 142 mmol/L (136-145); Thyroid Stim Hormone (TSH) 2.39 uIU/mL (0.358-3.74)
== END | disposition home or self-care (01) ==
LOC: LAB 16:04
PROVIDERS: PCP Internal Medicine; Visit Provider Nurse Practitioner Family
DX: I48.0 Paroxysmal atrial fibrillation (principal); I50.32 Chronic diastolic (congestive) heart failure; Z79.01 Long term (current) use of anticoagulants
CPT/HCPCS: 36415; 80048; 83735; 84443; 85025

== ENCOUNTER → 2022-03-06 | Outpatient (CLI) | payer OTHER, MEDICARE, SELFPAY ==
--- NOTE | 2022-03-06 16:37 | RAD_ITS ---
STUDY: X-RAY CHEST REASON FOR EXAM: Female, 76 years old. sob TECHNIQUE: PA and lateral COMPARISON: 06/02/2018 FINDINGS: Mild bilateral perihilar interstitial thickening. There is prominence of markings in right middle lobe and left lower lobe possibly representing acute inflammatory changes.. There is mild blunting of the costophrenic sulci system with small bilateral pleural effusions effusions.. Heart is enlarged. Normal mediastinum and rayne. Normal visualized pulmonary arteries. Tortuous mildly calcified aortic arch and descending thoracic aorta. Dorsal spine and shoulders demonstrate degenerative change Normal visualized ribs and clavicles. Postsurgical changes of the cervical spine There is no demonstrated abnormality of the visualized soft tissue structures of the upper abdomen. RAD/Chest PA and Lateral IMPRESSION: ASHD and mild bilateral perihilar interstitial thickening. Right middle lobe and left lower lobe consolidation with small effusions. Electronically Signed: Roger Ashley MD at 16:58 EDT ,
== END | disposition home or self-care (01) ==
LOC: MTRAD 16:36
PROVIDERS: PCP Internal Medicine; Visit Provider Physician Assistant
DX: R91.8 Other nonspecific abnormal finding of lung field (principal); R06.02 Shortness of breath
CPT/HCPCS: 71046

== ENCOUNTER → 2022-04-02 | Outpatient (CLI) | payer OTHER, MEDICARE, SELFPAY ==
--- NOTE | 2022-04-02 15:40 | RAD_ITS ---
STUDY: X-RAY - LUMBAR SPINE REASON FOR EXAM: Female, 76 years old. POST LAMINECTOMY SYNDROME TECHNIQUE: 3 view(s) of the lumbar spine were obtained. COMPARISON: None FINDINGS: Normal lumbar lordosis. Mild scoliosis. There is a normal alignment of the vertebrae. There is diffuse demineralization with multi-level endplate spondylosis. There is multi-level degenerative disc disease with multi-level disc space narrowing. The soft tissue structures are unremarkable. RAD/Lumbar Spine 2 or 3 Views IMPRESSION: Degenerative changes of the spine, as detailed above. Mild scoliosis. Electronically Signed: Tyler Parr MD at 16:06 EST ,
== END | disposition home or self-care (01) ==
LOC: RAD 15:32
PROVIDERS: PCP Internal Medicine; Referring Provider Anesthesiology Pain Medicine; Visit Provider Anesthesiology Pain Medicine
DX: M96.1 Postlaminectomy syndrome, not elsewhere classified (principal)
CPT/HCPCS: 72100

== ENCOUNTER → 2022-04-08 | Outpatient (CLI) | payer OTHER, MEDICARE, SELFPAY ==
--- NOTE | 2022-04-08 11:20 | STRESSREP ---
Stress Test Report Pharmacologic myocardial perfusion stress test. 76-year-old lady with a history of chest pain. Resting EKG demonstrates sinus bradycardia with a rate of 62 bpm. Resting blood pressure is 178/80 mmHg. 0.4 mg of regadenoson was infused per usual protocol followed by rapid intravenous saline flush injection. Continuous EKG monitoring was performed. The maximum heart rate was 76 bpm which was 52% of max impacted heart rate the maximum workload was 1 metabolic equivalent. At rest there were no ST or T wave changes noted to suggest ischemia and at peak infusion nonspecific ST changes were noted with did not meet the criteria for ischemia. Occasional premature ventricular complexes noted. No clinical angina is noted. The final blood pressure was 162/60 mmHg. Myocardial perfusion protocol. 11.2 mCi of technetium 99m sestamibi was injected at rest. 0.4 mg of regadenoson was infused per usual protocol. At peak infusion 32.1 mCi of technetium 99m sestamibi was injected stress images were obtained stress and rest images were reconstructed and compared in the short axis vertical long and horizontal long axis. Gated images were also obtained. Perfusion SPECT analysis: Review of the stress images demonstrate normal uptake of tracer noted in all areas of the myocardium. The resting images similar demonstrated normal uptake of tracer noted in all areas of the myocardium. No areas of reversibility are noted to suggest ischemia and no previous infarct is noted. Gated SPECT analysis: The gated ejection fraction is 87%. Conclusion: Normal pharmacologic myocardial perfusion stress test. Preserved ejection fraction.
== END | disposition home or self-care (01) ==
LOC: CVS 06:37
PROVIDERS: PCP Internal Medicine; Referring Provider Internal Medicine Cardiovascular Disease; Visit Provider Internal Medicine Cardiovascular Disease
DX: R07.9 Chest pain, unspecified (principal); I50.32 Chronic diastolic (congestive) heart failure
CPT/HCPCS: 78452; 93017; A9500; A4216; J2785

== ENCOUNTER → 2022-04-15 | Outpatient (CLI) | payer OTHER, MEDICARE, SELFPAY ==
[2022-04-15 17:23] LABS: Hematocrit 39.3 % (37-47); Hemoglobin 13.1 g/dL (12.0-15.0); Mean Corp Hgb Conc 33.3 g/dL (32-36); Mean Corpuscular Hgb 30.3 pg (27.0-32.0); Platelet Count 416 K/mm3 (150-450); RBC Distribution Width CV 13.2 % (11.6-14.6); RBC Distribution Width SD 43.8 fl (35.1-43.9); Red Blood Count 4.32 M/mm3 (4.2-5.4); White Blood Count 10.4 K/mm3 (4.4-11.0)
[2022-04-15 17:57] LABS: Anion Gap 8 (5-15); BUN 37 mg/dL (7-18); BUN/Creat Ratio 36.3 RATIO (10-20); Calcium,Total 9.4 mg/dL (8.5-10.1); Chloride 106 mmol/L (98-107); Creatinine, Serum 1.02 mg/dL (0.55-1.02); EST Glomerular Filtration Rate 56 mL/min (>60); Est Glom Filt Rate - Afr Amer 68 mL/min (>60); Glucose 101 mg/dL (74-106); Magnesium 2.3 mg/dL (1.6-2.6); Potassium 4.1 mmol/L (3.5-5.1); Sodium Level 142 mmol/L (136-145)
== END | disposition home or self-care (01) ==
LOC: LAB 15:46
PROVIDERS: PCP Internal Medicine; Referring Provider Internal Medicine Cardiovascular Disease; Visit Provider Internal Medicine Cardiovascular Disease
DX: R00.0 Tachycardia, unspecified (principal)
CPT/HCPCS: 36415; 80048; 83735; 85027

== ENCOUNTER → 2022-04-16 | Outpatient (CLI) | payer OTHER, MEDICARE, SELFPAY ==
[2022-04-16 16:34] LABS: BNP,B-Type NATRIURETIC PEPTIDE 512.7 pg/mL (0-100)
== END | disposition home or self-care (01) ==
LOC: LAB 15:40
PROVIDERS: PCP Internal Medicine; Referring Provider Internal Medicine Cardiovascular Disease; Visit Provider Internal Medicine Cardiovascular Disease
DX: R06.02 Shortness of breath (principal); I50.32 Chronic diastolic (congestive) heart failure
CPT/HCPCS: 36415; 83880

== ENCOUNTER 2022-04-27 12:21 | Emergency (ER) | payer OTHER, MEDICARE, SELFPAY ==
[2022-04-27 12:22] VITALS: BP 149/63; PULSE 51; RESP 16; TEMP 36.3; O2SAT 97; BMI 25.1
--- NOTE | 2022-04-27 14:55 | EKG12_ITS ---
Test Reason : SOB Blood Pressure : / mmHG Vent. Rate : 052 BPM Atrial Rate : 052 BPM P-R Int : 208 ms QRS Dur : 118 ms QT Int : 462 ms P-R-T Axes : 069 -61 -41 degrees QTc Int : 429 ms Sinus bradycardia with marked sinus arrhythmia Left axis deviation Nonspecific ST and T wave abnormality Abnormal ECG Confirmed by ROWDY HICKS, SELVIN ([id number]), assignment desk editor DAVID CONNOLLY ([id number]) on 04/29/2022 12:43:29 PM Referred By: TANYA Confirmed By:SELVIN RENO MD
--- NOTE | 2022-04-27 15:20 | RAD_ITS ---
HISTORY: chest pain. TECHNIQUE: XR Chest 2 Views. COMPARISON: 03/06/2022. FINDINGS: CARDIOMEDIASTINAL BORDERS: Cardiac silhouette within normal limits in size. Mediastinal contour unchanged with calcification of the aorta. LUNGS: Mild interstitial opacities in the lung bases, decreased from prior. PLEURA: No pleural effusion or pneumothorax seen. OSSEOUS STRUCTURES: Degenerative changes. Cervical spinal fusion hardware. RAD/Chest PA and Lateral IMPRESSION: Mild interstitial opacities in the lung bases. Electronically Signed: Leonora Matthews MD at 15:31 EST ,
[2022-04-27 15:28] LABS: Absolute Lymphocyte Count 2.08 X10^3/uL (0.83-4.51); Absolute Neutrophil Count 6.8 X10^3/uL (2.0-7.7); Basophil# 0.02 X10^3/uL; Basophil% 0.2 % (0-1); Eosinophil# 0.05 X10^3/uL; Eosinophils% 0.5 % (0-5); Hemoglobin 12.1 g/dL (12.0-15.0); Lymphocyte # 2.08 X10^3/ul (0.83-4.51); Lymphocyte % 21.4 % (19-41); Mean Corp Hgb Conc 32.7 g/dL (32-36); Mean Corpuscular Volume 91.8 fL (81-99); Mean Platelet Vol. 10.1 fl (6.2-12.0); Monocyte# 0.71 X10^3/uL; Monocyte% 7.3 % (0-10); NRBC Flagged by Analyzer 0 % (0-5); Neutrophil # 6.84 X10^3/uL (2.7-7.7); Neutrophil % 70.2 % (47-70); Platelet Count 307 K/mm3 (150-450); RBC Distribution Width CV 13.2 % (11.6-14.6); RBC Distribution Width SD 44.3 fl (35.1-43.9); Red Blood Count 4.03 M/mm3 (4.2-5.4); White Blood Count 9.7 K/mm3 (4.4-11.0)
[2022-04-27 15:43] LABS: Anion Gap 6 (5-15); BUN 26 mg/dL (7-18); Chloride 105 mmol/L (98-107); Creatinine, Serum 0.79 mg/dL (0.55-1.02); EST Glomerular Filtration Rate 76 mL/min (>60); Est Glom Filt Rate - Afr Amer 92 mL/min (>60); Estimated Creatinine Clearance 37.24 ml/min; Glucose 100 mg/dL (74-106); Magnesium 2.1 mg/dL (1.6-2.6); Potassium 3.7 mmol/L (3.5-5.1); Sodium Level 141 mmol/L (136-145); Troponin-I HS 7 pg/mL (3.0-54.0)
[2022-04-27 16:05] LABS: BNP,B-Type NATRIURETIC PEPTIDE 336.7 pg/mL (0-100)
--- NOTE | 2022-04-27 16:10 | CT_ITS ---
EXAM: CT CHEST WITHOUT INTRAVENOUS CONTRAST CLINICAL INDICATION: dyspnea, abnormal chest xray TECHNIQUE: Helically acquired images were obtained of the chest without intravenous contrast. This CT exam was performed using one or more of the following dose reduction techniques: automated exposure control, adjustment of the mA and/or kV according to patient size, and/or use of iterative reconstruction technique. This report was created using [email or web address] report generation technology. COMPARISON: CT Chest dated 03/15/2013 FINDINGS: LUNGS AND PLEURAL SPACES: Diffuse centrilobular pulmonary emphysema is noted. No airspace opacification of the lungs. No evidence of diffuse interstitial lung disease. No mass. No pleural effusion or thickening. HEART: No coronary artery calcification. MEDIASTINUM: Normal. No mediastinal or hilar adenopathy. Esophagus is unremarkable. No hiatal hernia. THYROID: Normal. No thyroid lesions. BONES/JOINTS: Normal. No suspicious lytic or blastic abnormality. VASCULATURE: Normal. Thoracic aorta is non-dilated. CT/Chest without Contrast IMPRESSION: 1. No acute cardiopulmonary abnormality. 2. Moderate diffuse centrilobular pulmonary emphysema Electronically Signed: Juan Moore MD at 17:08 EST ,
[2022-04-27 16:14] VITALS: BP 147/75; PULSE 55; RESP 15; O2SAT 95
--- NOTE | 2022-04-27 16:18 | EX.ED.DYSGE1 ---
HPI History of Present Illness Chief Complaint: General Illness Informant: patient Narrative Narrative: Patient is a 76-year-old female with history of proximal atrial fibrillation on Eliquis, flecainide and metoprolol, chronic diastolic heart failure, chronic neck and back pain as well as difficulty balancing and standing. She is presenting with worsening dyspnea on exertion. Patient states for the past week and a half she has had increased shortness of breath as well as dyspnea on exertion. She also gets some pain in her right shoulder which seems to be associate with when her heart rate goes up. She is also been having some left-sided pleuritic chest pain and states has a history of pleurisy. For the past 4 days her tongue has been numb. She does have frequency of urination but notes that her Lasix was increased to twice a day recently for concern of fluid overload. She states has had a couple pounds weight gain. She also had an increase of her flecainide as well as her metoprolol a week and a half ago. Currently patient notes that she has had some pressure in her jaw as well as her head that is worse when she leans forward. Denies any fever. States has been compliant with all of her medications not missed any doses of her Eliquis. Patient states that she was diagnosed with bronchial pneumonia about 3 weeks ago. [facility] Medical History Abnormal bruising Acute cholecystitis Arthritis Atrial fibrillation Atrial fibrillation with RVR (10/31/18) Moses's esophagus Calculus of kidney Cancer Cardiomyopathy in other diseases classified elsewhere Carpal tunnel syndrome Chest pain Chronic diastolic (congestive) heart failure Chronic neck and back pain Diarrhea Difficulty balancing when standing GERD (gastroesophageal reflux disease) Heart disease History of DVT (deep vein thrombosis) Hypertension Non-rheumatic tricuspid valve insufficiency Nonrheumatic aortic valve stenosis Panlobular emphysema Paroxysmal atrial fibrillation Rotator cuff tear Scoliosis of cervical spine Shoulder pain SOB (shortness of breath) Tendonitis of shoulder, right URI (upper respiratory infection) Home Medications multivitamin with folic acid 400 mcg tablet 1 tab PO DAILY supplement 03/15/13 [History Last Taken 10/31/18 07:00] cholecalciferol (vitamin D3) 25 mcg (1,000 unit) tablet 1,000 unit PO .5xDaily supplement 01/19/21 [History Last Taken Unknown] melatonin 3 mg capsule 3 mg PO HS 01/19/21 [History Last Taken Unknown] omeprazole 20 mg capsule,delayed release 20 mg PO DAILY GERD 01/19/21 [History Last Taken Unknown] apixaban 5 mg tablet 5 mg PO BID #180 tabs 06/07/21 [Rx Last Taken Unknown] calcium carbonate 500 mg calcium (1,250 mg) tablet 500 mg PO DAILY 06/25/21 [History Last Taken Unknown] diclofenac sodium 75 mg tablet,delayed release 75 mg PO .COMPLEX 06/25/21 [History Last Taken Unknown] furosemide 40 mg tablet 40 mg PO DAILY #90 tabs 08/31/21 [Rx Last Taken Unknown] potassium chloride 20 mEq tablet,extended release(part/cryst) 20 meq PO DAILY #180 tabs 12/21/21 [Rx Last Taken Unknown] metoprolol succinate 25 mg tablet,extended release 24 hr 25 mg PO BID this is a dose increase #90 tabs 04/15/22 [Rx Last Taken Unknown] flecainide 150 mg tablet 100 mg PO Q12H #180 tabs 04/27/22 [Rx Last Taken Unknown] Allergy/AdvReac Type Severity Reaction Status Date / Time diltiazem HCl [From Cardizem] Allergy Swelling Verified 04/27/22 12:25 of face and neck naproxen Allergy Swelling Verified 04/27/22 12:25 (whole body) prednisone Allergy Other Verified 04/27/22 12:25 amiodarone AdvReac Severe Severe Verified 04/27/22 12:25 dyspnea after taking PO Amiodarone adhesive AdvReac Rash Verified 04/27/22 12:25 albuterol AdvReac Other Verified 04/27/22 12:25 codeine AdvReac Vomiting Verified 04/27/22 12:25 hydrocodone bitartrate AdvReac Vomiting Verified 04/27/22 12:25 [From Vicodin] morphine AdvReac Vomiting Verified 04/27/22 12:25 Family History Sister Afib Father CAD (coronary artery disease) Brother CVA (cerebral vascular accident) Mother No problems noted. Sister No problems noted. Brother Wilsons disease Brother Wilsons disease Surgical History H/O hernia repair H/O neck surgery History of cardioversion (11/23/18) History of left heart catheterization (03/15/13) History of radiofrequency ablation procedure for cardiac arrhythmia (07/27/15) Hx of cholecystectomy Hx of fusion of cervical spine ovarian surgery Social History Smoking Status: Former smoker alcohol intake: never substance use type: does not use caffeine: Yes Type: coffee Number of servings: 1 what type of physical activity do you participate in: walking frequency: daily seatbelt use: always do you feel safe at home: Yes ROS ROS ED Constitutional Constitutional ED: Denies chills or fever(s) Eyes Eyes: Denies change in vision ENT ENT ED: Reports other Details: Sinus pressure ; Denies rhinorrhea or sore throat Cardiovascular Cardiovascular: Reports chest pain and racing heartbeat Respiratory/Chest Respiratory/Chest: Reports cough, dyspnea and dyspnea on exertion Gastrointestinal Gastrointestinal: Denies abdominal pain, diarrhea, melena, nausea or vomiting Genitourinary Genitourinary ED: Denies dysuria or hematuria Musculoskeletal Musculoskeletal: Reports myalgias; Denies arthralgias Integumentary Denies Abrasions or rash Neurologic Neurologic: Reports weakness; Denies paresthesias Psychiatric Psychiatric: Denies anxiety Hematologic/Lymphatic Hematologic/Lymphatic: Denies easy bleeding or easy bruising EXAM Physical Exam Const Vital Signs: 04/27/22 12:22 04/27/22 14:22 04/27/22 15:05 Temperature 97.3 F L Temperature Source Temporal Pulse Rate 51 L Respiratory Rate 16 Respiratory Effort Normal Non-Labored Respiratory Pattern Normal Blood Pressure 149/63 H Blood Pressure Mean 91 Pulse Ox 97 Oxygen Delivery Method Room Air Room Air 04/27/22 16:14 Temperature Temperature Source Pulse Rate 55 L Respiratory Rate 15 Respiratory Effort Respiratory Pattern Blood Pressure 147/75 H Blood Pressure Mean 99 Pulse Ox 95 Oxygen Delivery Method Room Air Positive well nourished and well developed General Appearance ED: well developed and NAD HEENT Reports TM's clear and moist mucous membranes Tympanic Membrane ED: Yes TM's clear Eyes PERRL and EOMs intact bilaterally Neck supple and no JVD Chest Wall inspection of chest normal and palpation of chest normal Resp normal respiratory effort Resp Narrative: No rhonchi or crackles appreciated. Auscultation: diminished lung sounds bilateral lower GI normal to inspection, nondistended, normoactive bowel sounds and non-tender Extremity normal to inspection General Extremety ED: Negative for edema or tenderness General Extremity: Negative for edema Neuro oriented x3 Neuro Narrative: Slightly asymmetric smile however patient states this is her baseline Sensorium / Orientation: alert Motor Exam: general weakness Psych mental status grossly normal Skin no rashes or lesions noted and no wounds MDM MDM MDM Narrative Medical decision making narrative: Patient evaluated for worsening dyspnea on exertion, chest discomfort and reported weight gain. Symptoms seem to start when medications changed about a week and a half ago. She is concerned that she has a CHF exacerbation. Clinically patient does not appear fluid overloaded. Chest x-rays not show any pleural effusions but does show mild interstitial opacities at the lung bases. This is interpreted by myself as well as radiology. Her BNP is downtrending and her high-sensitivity troponin is normal at 7. Kidney function is normal. No electrolyte abnormalities noted. CBC is normal. EKG obtained which does not show any acute process but is bradycardic. Patient is ambulated and while she is weak and unsteady per nursing, she does not have any hypoxia. As patient's been compliant with her Eliquis have a low suspicion for pulmonary emboli. Will obtain a CT Noncon chest to further evaluate these basilar opacities in case patient has a pneumonia that is not seen on chest x-ray or there is other pathology to explain her presentation. In addition due to her muscle weakness we will obtain a CPK and check for COVID/flu. These are negative. CT of the chest does not show any acute process but does show moderate diffuse intralobar pulmonary emphysema. Case is discussed with Dr. Lora, and he agrees that it is likely her symptoms could be due to overmedication from the recent increase of her metoprolol and her flecainide. We will go down on her flecainide back to 100 mg twice a day. Patient will follow-up outpatient with cardiology. She will discuss an outpatient echocardiogram. Patient is agreeable this plan of care. She is given return precautions. Lab Data Attestation: I reviewed the patient's lab results. Labs: Laboratory Results - last 24 hr 04/27/22 04/27/22 04/27/22 14:35 14:35 14:35 WBC 9.7 RBC 4.03 L Hgb 12.1 Hct 37.0 MCV 91.8 MCH 30.0 MCHC 32.7 RDW Std Deviation 44.3 H RDW Coeff of Elvie 13.2 Plt Count 307 MPV 10.1 Immature Gran % (Auto) 0.400 Neut % (Auto) 70.2 H Lymph % (Auto) 21.4 Lawrence % (Auto) 7.3 Eos % (Auto) 0.5 Baso % (Auto) 0.2 Absolute Neuts (auto) 6.8 Absolute Lymphs (auto) 2.08 Nucleated RBC % 0 Sodium 141 Potassium 3.7 Chloride 105 Carbon Dioxide 30.0 Anion Gap 6 BUN 26 H Creatinine 0.79 Estim Creat Clear Calc 37.24 Est GFR (MDRD) Af Amer 92 Est GFR (MDRD) Non-Af 76 BUN/Creatinine Ratio 33.0 H Glucose 100 Calcium 9.0 Magnesium 2.1 Total Creatine Kinase Troponin I High Sens 7 B-Natriuretic Peptide 336.7 H 04/27/22 14:35 WBC RBC Hgb Hct MCV MCH MCHC RDW Std Deviation RDW Coeff of Elvie Plt Count MPV Immature Gran % (Auto) Neut % (Auto) Lymph % (Auto) Lawrence % (Auto) Eos % (Auto) Baso % (Auto) Absolute Neuts (auto) Absolute Lymphs (auto) Nucleated RBC % Sodium Potassium Chloride Carbon Dioxide Anion Gap BUN Creatinine Estim Creat Clear Calc Est GFR (MDRD) Af Amer Est GFR (MDRD) Non-Af BUN/Creatinine Ratio Glucose Calcium Magnesium Total Creatine Kinase 41 Troponin I High Sens B-Natriuretic Peptide Radiography Diagnostic Testing: Clinical Impression(s) from Imaging Studies Chest X-Ray 04/27/22 15:20 IMPRESSION: Mild interstitial opacities in the lung bases. Electronically Signed: Leonora Matthews MD at 15:31 EST , Chest CT 04/27/22 16:10 IMPRESSION: 1. No acute cardiopulmonary abnormality. 2. Moderate diffuse centrilobular pulmonary emphysema Electronically Signed: Juan Moore MD at 17:08 EST , Rhythm Strip Rhythm Strip: Sinus Rhythm Rate: 52 Ectopy: None EKG Initial EKG: Attestation: I personally reviewed and interpreted this EKG as follows: Interpretation: Sinus Bradycardia Comments: Sinus bradycardia at a rate of 52 bpm with sinus arrhythmia Left axis deviation Nonspecific ST and T wave abnormalities Normal intervals Compared to prior EKG on 03/04/2022 rate is decreased by 10 bpm but no other acute changes Discharge Plan Triage Chief Complaint: General Illness ED Provider: Sara Hilton Dx/Rx/DC Orders Clinical Impression: SOTELO (dyspnea on exertion), [employer] (current) use of anticoagulants, Paroxysmal atrial fibrillation, Chest discomfort, Generalized muscle weakness Instructions: ED Dyspnea, ED Weakness (Uncertain Cause) Prescriptions: Changed flecainide 150 mg tablet 100 mg PO Q12H Qty: 180 3RF No Action melatonin 3 mg capsule 3 mg PO HS calcium carbonate 500 mg calcium (1,250 mg) tablet 500 mg PO DAILY diclofenac sodium 75 mg tablet,delayed release (DR/EC) 75 mg PO .COMPLEX Rx Instructions: 75 mg PO every other day; potassium chloride 20 mEq tablet,ER particles/crystals 20 meq PO DAILY Qty: 180 3RF multivitamin with folic acid 1 TABLET tablet 1 tab PO DAILY Label Comments: VITAMIN cholecalciferol (vitamin D3) 25 mcg (1,000 unit) tablet 1,000 unit PO .5xDaily Label Comments: vitamin omeprazole 20 mg capsule,delayed release(DR/EC) 20 mg PO DAILY apixaban 5 mg tablet 5 mg PO BID Qty: 180 3RF furosemide 40 mg tablet 40 mg PO DAILY Qty: 90 3RF metoprolol succinate 25 mg tablet extended release 24 hr 25 mg PO BID Qty: 90 3RF Primary Care Provider: Minerva Manley Referrals: Minerva Manley MD [Primary Care Provider] - Maxim Ibarra MD [Med Staff - Active Staff] - 3-5 Days if not improving Activity Restrictions/Additional Instructions: Your work-up is largely negative. No signs of pneumonia or CHF/fluid overload. Your CT of the chest did show emphysema of the lungs. We suspect your symptoms may be due to an increase of your heart medicines. For the time being continue at the higher dose of the metoprolol and decrease your flecainide back to 100 mg twice a day. Please call the cardiology office on Friday to arrange outpatient follow-up and discuss an outpatient echocardiogram. Return if you have worsening symptoms. Disposition Disposition: Home, Self Care
[2022-04-27 17:14] LABS: CPK Total, Creatine Kinase 41 U/L (26-192)
[2022-04-27 17:44] VITALS: BP 155/65; PULSE 55; RESP 21
== END 2022-04-27 17:50 | disposition home or self-care (01) ==
PROVIDERS: Emergency Provider Emergency Medicine; PCP Internal Medicine; Visit Provider Emergency Medicine
DX: R07.89 Other chest pain (principal); J43.1 Panlobular emphysema; I11.0 Hypertensive heart disease with heart failure; I50.32 Chronic diastolic (congestive) heart failure; I48.0 Paroxysmal atrial fibrillation; R06.00 Dyspnea, unspecified; M62.81 Muscle weakness (generalized); Z79.01 Long term (current) use of anticoagulants; Z87.891 Personal history of nicotine dependence; R00.1 Bradycardia, unspecified; R35.0 Frequency of micturition; M25.511 Pain in right shoulder
CPT/HCPCS: 71046; 71250; 80048; 82550; 83735; 83880; 84484; 85025; 87428; 93005; 99284; A4216

== ENCOUNTER → 2022-05-07 | Outpatient (CLI) | payer OTHER, MEDICARE, SELFPAY ==
--- NOTE | 2022-05-07 15:51 | SP.MBSS_ITS ---
Modified Barium Swallow - Patient Information Study Date: 05/07/22 Study Time: 13:00 Direct Billable Minutes: 90 Total Minutes procedure & reportin Diagnosis: Upper respiratory infection (J06.9) Referring Physician: Hodan Stevens NP Reason for Referral: Objectively assess swallow function, assess risk for aspiration, and determine recommendations for least restrictive diet textures and compensatory strategies to improve safety of swallow. Medical History: The patient is a 76-year-old female with PMH including Moses's esophagus, A fi b, cancer, GERD, heart disease, DVT, HTN, URI, cervical fusion C4-C-6 (~20 years ago), and PNA (~1 month ago) (SEE EMR for full PMH). Per patient, she feels abdominal discomfort frequently when eating (pointing to middle, upper abdomen). She reported she feels as if her stomach is coming up through her diaphragm. CRAYON PAINTER asked if patient has a diagnosed hiatal hernia, but patient stated it is not confirmed. She reports that when she eats she will sometimes get a tickle in her throat. She will also cough at times, especially when she drinks pedialyte by straw. She reports sharp cough throughout her day, sometimes with food/drink, sometimes without food/drink. She also reports feeling sensation of food caught in her throat every time she eats. Current Diet Ordered: Regular textures / Thin liquids Dentition: Upper Dentures, Lower Dentures Mental Status: WNL Respiratory Status: Oxygenating on Room Air - Penetration-Aspiration Scale Penetration-Aspiration Scale: OBJECTIVE ASSESSMENT OF SWALLOW FUNCTION (QUANTITATIVE ? PER TRIAL): PENETRATION / ASPIRATION SCALE (ORTEGA): 1 = does not enter airway 2 = enters airway/above vocal folds/ejected 3 = enters airway/above vocal folds/not ejected 4 = enters airway/contacts vocal folds/ejected 5 = enters airway/contacts vocal folds/not ejected 6 = enters airway/below vocal folds/ejected 7 = enters airway/below vocal folds/not ejected despite effort 8 = enters airway/below vocal folds/no effort VIDEOFLOROSCOPIC SCALE SCORE (ORTEGA): Grade I = aspiration of material that has penetrated into the laryngeal vestibule, intact cough reflex Grade II = aspiration < 10 % of the bolus, intact cough reflex Grade III = aspiration of < 10 % of the bolus, reduced cough reflex or aspiration of > 10 % of the bolus, intact cough reflex Grade IV = aspiration of > 10 % of the bolus, reduced cough reflex - Penetration-Aspiration Scale Score Thin Liquid via teaspoon Result: 2= enter airway/above vocal folds/ejected Thin Liquid via teaspoon Trial 2 Result: 2= enter airway/above vocal folds/ejected Thin Liquid via small single sip from cup Result: 2= enter airway/above vocal folds/ejected Thin Liquid via sequential sips from cup Result: 2= enter airway/above vocal folds/ejected [place] Thick Liquid via small single sip from cup Result: 2= enter airway/above vocal folds/ejected Pudding via teaspoon with esophageal screen Result: 1= does not enter airway 1/2 Cookie Result: 1= does not enter airway Thin Liquid via single sip from straw Result: 5= enters airways/contacts vocal folds/not ejected Thin Liquid via small single sip from cup Trial 2 Result: 3= enters airways/above vocal folds/not ejected Thin Liquid via small single sip from cup Effortful swallow Result: 2= enter airway/above vocal folds/ejected Barium Tablet with water Result: 1= does not enter airway - Coughing after the swallow Barium Tablet with barium pudding Result: 1= does not enter airway - Oral Phase Labial Seal: No Labial Escape Tongue Control During Bolus Hold: Posterior escape of less than half of bolus Bolus Preparation/Mastication: Disorganized chewing/mashing with solid pieces of bolus unchewed Bolus Transport/Lingual Motion: Repetitive/disorganized tongue motion Oral Residue: Residue collection on oral structures - cookie - Pharyngeal Phase Initiation of Pharyngeal Swallow: Bolus head in pyriforms Soft Palate Elevation: No bolus between soft palate and pharyngeal wall Laryngeal Elevation: Partial superior movement thyroid cart/partial apprx aryt- epig petiole Anterior Hyoid Excursion: Partial anterior movement Epiglottic Movement: Partial inversion Laryngeal Vestibule Closure at Height of Swallow: Incomplete; narrow column of air/contrast in laryngeal vestibule Pharyngeal Stripping Wave: Present - diminished Pharyngoesophageal Segment Opening: Parital distension and partial duration; parital obstruction of flow Tongue Base Retraction: Wide column of contrast between tongue base & post. pharyngeal wall Pharyngeal Residue: Collection of residue within or on pharyngeal structures - Esophageal Phase Esophageal Clearance: Esophageal retention w/ retrograde flow below pharyngoesophageal seg. - slowed, but complete esophageal clearance of pudding bolus after initial retention with retrograde flow - Diagnosis/Impression Diagnosis: Mild oropharyngeal phase dysphagia (R13.12) Impression: The oral phase is primarily marked by... -Decreased bolus control with <1/2 of the bolus spilling posteriorly to the pyriforms prior to swallow onset observed with thin liquids by straw especially. -Mild oral residue of cookie after the swallow, which mostly cleared with independent initiation of a second swallow. -Timely mastication; however, small pieces of the cookie appeared unchewed. The pharyngeal phase is primarily marked by... -Mildly decreased airway closure during the swallow due to decreased anterior hyoid excursion, partial epiglottic inversion, and decreased laryngeal elevation. -Mildly-moderately decreased tongue base retraction, moderately decreased UES opening/duration, and mildly decreased pharyngeal stripping wave with resulting mild-moderate pharyngeal residues in the vallecula and pyriforms after the swallow. -Consistent laryngeal penetration across thin and nectar thick liquid consistencies. Sips of thin liquids via straw resulted in increased laryngeal penetration to the vocal folds, which did not reliably eject from the laryngeal vestibule after the swallow. One sip of thin via cup did not reliably eject from the laryngeal vestibule. Use of effortful swallow was effective in decreasing laryngeal penetration during the swallow. No aspiration observed during the study. - Recommendations Diet: Regular Textures - Easy to Chew meats (IDDSI level 7), Thin Liquids Compensatory Strategies: Small Bites, Small Sips - Effortful/hard swallows with all sips, No Straws, Slow Rate, Multiple Swallows - pt independently utilizes multiple swallows to somewhat clear pharyngeal residues, Sitting upright, Remain sitting upright for 30 minutes after PO intake Recommend Repeat Modified Barium Swallow: No Need for Skilled Speech Therapy Services: Yes Comment: Will recommend the patient for outpatient dysphagia therapy to address mild deficits in oropharyngeal swallow function. Will recommend the patient for oropharyngeal strengthening to improve tongue base retraction, laryngeal elevation, hyoid excursion, pharyngeal contraction, and duration of UES opening (Miri, CTAR, Mikie, and effortful swallow). The patient would benefit from thorough education regarding diet recommendations and recommended compensatory strategies. Recommended Referrals: GI Consult - Keep GI consult - per patient she is scheduled with Dr. Rider's [employer] 07/12/22. Education Completed: 1. Described result of evaluation., 2. Pt understands evaluation & agrees with goals and treatment plan., 7. Pt requires further education on strategies & risks. - Status Active ST Patient: Active - Contact Information [facility] Speech Therapy:: Thuy Kaiser M.A. [facility]CRAYON PAINTER Speech-Language Pathologist [facility] [address] [place] [address] [email or web address] [phone] 05/07/22 16:26
== END | disposition home or self-care (01) ==
LOC: RAD 12:42
PROVIDERS: PCP Internal Medicine; Referring Provider Internal Medicine; Visit Provider Internal Medicine
DX: K44.9 Diaphragmatic hernia without obstruction or gangrene (principal); K21.9 Gastro-esophageal reflux disease without esophagitis; R13.12 Dysphagia, oropharyngeal phase
CPT/HCPCS: 74230; 92611

== ENCOUNTER → 2022-05-10 | Outpatient (CLI) | payer OTHER, MEDICARE, SELFPAY ==
--- NOTE | 2022-05-10 09:42 | US_ITS ---
INDICATION: ELEVATED LFTS EXAMINATION: Ultrasound US Abdomen Limited (quadrant) TECHNIQUE: Jennings scale imaging with graded compression and color doppler was obtained of the right upper quadrant and spleen. COMPARISON: CT abdomen/pelvis without contrast from 10/12/2016. FINDINGS: Liver: 16.3 cm in length. Normal size. Diffuse Increased parenchymal echogenicity compatible with fatty infiltration. No hepatic masses. No intrahepatic bile duct dilation. Normal hepatopedal flow. Gallbladder: Cholecystectomy. Common bile duct measures 5.2 mm and is within normal limits. Pancreas: The visualized head and body are unremarkable. Tail is largely obscured by overlying bowel gas. Right kidney: 10.5 x 5.5 x 4.6 cm. Normal size. The lower pole of the right kidney is suboptimally visualized due to overlying bowel gas. The cortex measures 1.2 cm and is within normal limits. Normal parenchymal echogenicity. No parenchymal masses. No nephrolithiasis or hydronephrosis. Left kidney: 11.3 x 4.3 x 5.1 cm. Normal size. Cortex measures 1.6 cm and is within normal limits. Normal parenchymal echogenicity. No parenchymal masses. No nephrolithiasis or hydronephrosis. Spleen: 8.9 x 3.8 x 3.9 cm. Normal size. No masses. IMPRESSION: 1. Diffuse hepatic steatosis. No hepatic masses. 2. Normal size of the spleen. 3. Cholecystectomy. No bile duct dilation. Electronically Signed: John Mustafa, at 15:24 EST , INDICATION: ELEVATED LFTS EXAMINATION: Ultrasound US Spleen (abdomen limited) TECHNIQUE: Jennings scale and color doppler imaging was performed of the spleen. COMPARISON: Same day right upper quadrant ultrasound. CT abdomen/pelvis without contrast from 10/12/2016. FINDINGS: The spleen measures 8.9 x 3.9 x 3.8 cm. Normal size. Normal parenchymal echogenicity. No parenchymal masses. US/Abdomen Limited IMPRESSION: Normal appearance of the spleen. Electronically Signed: John Mustafa, at 15:25 EST ,
== END | disposition home or self-care (01) ==
LOC: US 09:41
PROVIDERS: PCP Internal Medicine; Referring Provider Internal Medicine; Visit Provider Internal Medicine
DX: R79.89 Other specified abnormal findings of blood chemistry (principal)
CPT/HCPCS: 76705

== ENCOUNTER → 2022-07-12 | Outpatient (CLI) | payer OTHER, MEDICARE, SELFPAY ==
--- NOTE | 2022-07-12 15:25 | RAD_ITS ---
EXAM: XR CHEST, 2 VIEWS CLINICAL INDICATION: SOB, COPD Hx TECHNIQUE: Frontal and lateral views of the chest. This report was created using [employer] report generation technology. COMPARISON: 04/27/2022 FINDINGS: LUNGS AND PLEURAL SPACES: Unremarkable. No consolidation or edema. No pneumothorax. No effusion. HEART: Unremarkable. Cardiac silhouette not enlarged. MEDIASTINUM: Central airways and mediastinal contour are unremarkable. BONES/JOINTS: Unremarkable. SOFT TISSUES: Unremarkable. RAD/Chest PA and Lateral IMPRESSION: No radiographic evidence of acute cardiopulmonary disease. Electronically Signed: Heraclio Luna MD at 19:56 EST ,
[2022-07-12 16:30] LABS: Absolute Lymphocyte Count 2.29 X10^3/uL (0.83-4.51); Basophil# 0.02 X10^3/uL; Basophil% 0.3 % (0-1); Eosinophil# 0.14 X10^3/uL; Eosinophils% 2.3 % (0-5); Hematocrit 37.6 % (37-47); Hemoglobin 12.2 g/dL (12.0-15.0); Lymphocyte # 2.29 X10^3/ul (0.83-4.51); Lymphocyte % 38.2 % (19-41); Mean Corp Hgb Conc 32.4 g/dL (32-36); Mean Corpuscular Hgb 28.8 pg (27.0-32.0); Mean Corpuscular Volume 88.9 fL (81-99); Monocyte# 0.53 X10^3/uL; Monocyte% 8.8 % (0-10); NRBC Flagged by Analyzer 0 % (0-5); Neutrophil % 50.2 % (47-70); Platelet Count 315 K/mm3 (150-450); RBC Distribution Width CV 13.7 % (11.6-14.6); RBC Distribution Width SD 44.1 fl (35.1-43.9); Red Blood Count 4.23 M/mm3 (4.2-5.4)
[2022-07-12 17:17] LABS: BNP,B-Type NATRIURETIC PEPTIDE 44.8 pg/mL (0-100)
[2022-07-12 17:21] LABS: Anion Gap 9 (5-15); BUN 32 mg/dL (7-18); BUN/Creat Ratio 34.4 RATIO (10-20); Calcium,Total 9.1 mg/dL (8.5-10.1); Chloride 103 mmol/L (98-107); Creatinine, Serum 0.93 mg/dL (0.55-1.02); EST Glomerular Filtration Rate 62 mL/min (>60); Est Glom Filt Rate - Afr Amer 76 mL/min (>60); Glucose 113 mg/dL (74-106); Potassium 4.1 mmol/L (3.5-5.1); Sodium Level 140 mmol/L (136-145); Thyroid Stim Hormone (TSH) 2.27 uIU/mL (0.358-3.74)
== END | disposition home or self-care (01) ==
PROVIDERS: Nurse Practitioner Family; PCP Internal Medicine; Referring Provider Internal Medicine Cardiovascular Disease; Visit Provider Internal Medicine Cardiovascular Disease
DX: R06.02 Shortness of breath (principal); I48.0 Paroxysmal atrial fibrillation; R53.83 Other fatigue
CPT/HCPCS: 36415; 71046; 80048; 83880; 84443; 85025

== ENCOUNTER → 2022-07-25 | Outpatient (CLI) | payer OTHER, MEDICARE, SELFPAY ==
[2022-07-25 17:14] LABS: Absolute Lymphocyte Count 3.33 X10^3/uL (0.83-4.51); Absolute Neutrophil Count 3.3 X10^3/uL (2.0-7.7); Basophil# 0.02 X10^3/uL; Basophil% 0.3 % (0-1); Eosinophils% 1.3 % (0-5); Hematocrit 37.4 % (37-47); Lymphocyte # 3.33 X10^3/ul (0.83-4.51); Lymphocyte % 44.6 % (19-41); Mean Corp Hgb Conc 32.1 g/dL (32-36); Mean Corpuscular Hgb 29.2 pg (27.0-32.0); Mean Platelet Vol. 10.2 fl (6.2-12.0); Monocyte# 0.65 X10^3/uL; Monocyte% 8.7 % (0-10); NRBC Flagged by Analyzer 0 % (0-5); Neutrophil # 3.33 X10^3/uL (2.7-7.7); Neutrophil % 44.7 % (47-70); Platelet Count 352 K/mm3 (150-450); RBC Distribution Width CV 13.9 % (11.6-14.6); RBC Distribution Width SD 46.4 fl (35.1-43.9); Red Blood Count 4.11 M/mm3 (4.2-5.4); White Blood Count 7.5 K/mm3 (4.4-11.0)
[2022-07-25 17:37] LABS: BNP,B-Type NATRIURETIC PEPTIDE 434.5 pg/mL (0-100)
[2022-07-25 17:41] LABS: Anion Gap 7 (5-15); BUN 33 mg/dL (7-18); BUN/Creat Ratio 33.4 RATIO (10-20); Calcium,Total 9.5 mg/dL (8.5-10.1); Chloride 105 mmol/L (98-107); Creatinine, Serum 0.99 mg/dL (0.55-1.02); EST Glomerular Filtration Rate 58 mL/min (>60); Est Glom Filt Rate - Afr Amer 71 mL/min (>60); Free T3 1.4 pg/mL (2.18-3.98); Glucose 107 mg/dL (74-106); Magnesium 2.3 mg/dL (1.6-2.6); Potassium 3.8 mmol/L (3.5-5.1); Sodium Level 141 mmol/L (136-145); T4 Free Direct 1.18 ng/dL (0.76-1.46); Thyroid Stim Hormone (TSH) 3.08 uIU/mL (0.358-3.74)
== END | disposition home or self-care (01) ==
LOC: LAB 16:42
PROVIDERS: PCP Internal Medicine; Visit Provider Nurse Practitioner Gerontology
DX: R06.02 Shortness of breath (principal); I48.0 Paroxysmal atrial fibrillation
CPT/HCPCS: 36415; 80048; 83735; 83880; 84439; 84443; 84481; 85025

== ENCOUNTER → 2022-08-05 | Day surgery (SDC) | payer OTHER, MEDICARE, SELFPAY ==
[2022-08-02 08:02] VITALS: BMI 25.4
== END | disposition home or self-care (01) ==
LOC: CLSP 10:31
PROVIDERS: PCP Internal Medicine; Visit Provider Internal Medicine Cardiovascular Disease
DX: I48.0 Paroxysmal atrial fibrillation (principal); I11.0 Hypertensive heart disease with heart failure; I50.32 Chronic diastolic (congestive) heart failure; R00.1 Bradycardia, unspecified; R06.02 Shortness of breath; Z79.899 Other long term (current) drug therapy; Z87.891 Personal history of nicotine dependence
CPT/HCPCS: 93005

== ENCOUNTER → 2022-08-06 | Outpatient (CLI) | payer OTHER, MEDICARE, SELFPAY ==
--- NOTE | 2022-08-06 09:00 | ECHOCS_ITS ---
Reason For Study: Afib/Flutter Procedure This was a 2D Doppler, Color Flow transthoracic echocardiogram. The study was technically difficult. Contrast injection was performed. Exam performed in department. Left Ventricle Normal LV size. Left ventricular systolic function is normal. The estimated ejection fraction is 55 %. Stage 3 diastolic dysfunction. No regional wall motion abnormalities noted. Right Ventricle Normal RV size. Normal systolic function. Atria The left atrium is mildly enlarged. Normal right atrium. Mitral Valve Bileaflet diffuse mitral valve thickening. Mild-Moderate (1-2+) eccentric mitral valve insufficiency. Tricuspid Valve Normal tricuspid valve. Moderate (2+) tricuspid valve insufficiency. Pulmonary artery systolic pressure is 46 mmHg. Aortic Valve Trisinus/trileaflet aortic valve. Mild focal aortic valve calcification. Pulmonic Valve Normal pulmonic valve. Great Vessels Normal aortic root. The pulmonary artery is normal size. Normal inferior vena cava. Pericardium/Pleural No pericardial effusion. Medication 22 gauge I.V. with prn adaptor inserted into right arm. Diluted definity 2ml given slow IV push to enhance endocardial definition. MMode/2D Measurements & Calculations LVIDd: 4.7 cm IVSd: 0.90 cm LVOT diam: 2.0 cm LVIDs: 3.5 cm LVPWd: 0.84 cm RVDd: 4.4 cm FS: 25.8 % LVOT area: 3.1 cm2 Ao root diam: 3.0 cm LAV(MOD-bp): 81.8 ml LA A4 area: 23.3 cm2 LA dimension: 3.7 cm LAV(MOD-bp) Indexed: 51.2 ml/m2 LAV(MOD-sp2): 84.2 ml LAV(MOD-sp4): 75.1 ml RA A4 area: 17.5 cm2 Time Measurements MV dec time: 0.17 sec Doppler Measurements & Calculations MV E max lazarus: 133.4 cm/sec Lat Peak E' Lazarus: 10.8 cm/sec Med Peak E' Lazarus: 6.9 cm/sec MV A max lazarus: 23.7 cm/sec E/E' lat: 12.3 E/E' med: 19.4 MV E/A: 5.6 MV V2 max: 134.3 cm/sec MV dec slope: 777.1 cm/sec2 Ao V2 max: 171.0 cm/sec MV max P.2 mmHg Ao max P.7 mmHg MV V2 mean: 58.5 cm/sec Ao V2 mean: 121.3 cm/sec MV mean P.9 mmHg Ao mean P.7 mmHg MV V2 VTI: 32.5 cm Ao V2 VTI: 41.8 cm MVA(VTI): 2.1 cm2 AV (velocity ratio): 0.53 RHONDA(I,D): 1.6 cm2 RHONDA(V,D): 1.6 cm2 LV V1 max: 91.1 cm/sec MR max lazarus: 518.8 cm/sec SV(LVOT): 68.1 ml LV V1 max P.3 mmHg MR max P.7 mmHg LV V1 mean P.3 mmHg MR mean lazarus: 395.4 cm/sec LV V1 mean: 71.8 cm/sec MR mean P.9 mmHg LV V1 VTI: 22.3 cm MR VTI: 186.7 cm PA V2 max: 85.9 cm/sec TR max lazarus: 318.7 cm/sec PA V2 mean: 60.6 cm/sec TR max P.6 mmHg ECHO/Echo Complete W/ Contrast Interpretation Summary Normal LV size. Left ventricular systolic function is normal. The estimated ejection fraction is 55 %. Stage 3 diastolic dysfunction. Pulmonary artery systolic pressure is 46 mmHg. Mild focal aortic valve calcification. Contrast injection was performed. Ordering Physician: Caterina Bro Referring Physician: Minerva Manley Performed By: Fritz Lara RCS
== END | disposition home or self-care (01) ==
LOC: CVS 08:58
PROVIDERS: PCP Internal Medicine; Referring Provider Nurse Practitioner Gerontology; Visit Provider Nurse Practitioner Gerontology
DX: I48.0 Paroxysmal atrial fibrillation (principal)
CPT/HCPCS: 93306; Q9957; A4216; C8929

== ENCOUNTER 2022-08-08 15:52 | Inpatient (IN) | payer OTHER, MEDICARE, SELFPAY ==
[2022-08-08] VITALS (42 sets, daily range): BP systolic 144–169; BP diastolic 66–118; PULSE 38–60; RESP 14–21; TEMP 36.1–36.8; O2SAT 88–98; BMI 25.6; BMI 25.5
--- NOTE | 2022-08-08 16:21 | CT_ITS ---
We are attempting to reach an attending provider to discuss findings. An addendum with communication details will be sent when the communication is complete. STUDY: CT BRAIN WITHOUT CONTRAST REASON FOR EXAM: Female, 77 years old. Neuro deficit, acute, stroke suspected Individualized dose optimization techniques were used for this CT. TECHNIQUE: Transaxial CT imaging of the brain was performed without administration of intravenous contrast material. COMPARISON: None FINDINGS: There are calcifications around the carotid artery. These are noted in the cavernous carotid arteries. Normal calvarium. Normal soft tissues. There is mild cerebral atrophy with widening of the extra-axial spaces and ventricular dilatation. There are areas of decreased attenuation within the white matter tracts of the supratentorial brain, consistent with microvascular disease changes. Normal basal ganglia and thalami. Normal brainstem. There is mild cerebellar atrophy. There is no intracranial hemorrhage. There are no findings of an acute ischemic infarction. Degenerative changes of the mandibular condyles. ASPECTS Score for Acute Strokes: 02/18 CT/STROKE Brain/Head without Cont IMPRESSION: There are no acute findings. Chronic involutional changes of the brain. Electronically Signed: Yeyo Moran MD at 17:02 EDT ,
--- NOTE | 2022-08-08 16:21 | EKG12_ITS ---
Test Reason : WEAKNESS Blood Pressure : / mmHG Vent. Rate : 043 BPM Atrial Rate : 043 BPM P-R Int : 190 ms QRS Dur : 112 ms QT Int : 466 ms P-R-T Axes : 037 -82 025 degrees QTc Int : 393 ms Marked sinus bradycardia with Premature atrial complexes Left axis deviation Incomplete right bundle branch block Nonspecific ST and T wave abnormality Abnormal ECG Confirmed by JOEL HICKS, JO ANN ([id number]), editor school photograph JAYNE GALAVIZ ([id number]) on 08/12/2022 10:59:07 AM Referred By: ABDIRAHMAN Confirmed By:SRIDHAR MALDONADO MD
--- NOTE | 2022-08-08 16:24 | EX.ED.DYSGE1 ---
HPI History of Present Illness Chief Complaint: Neuro S/Sx Detail of Chief Complaint: Strokelike symptoms and pericardiaTriage nurse Informant: patient, friend and other Onset/Context/Timing Onset: - (Neuro symptoms may have started greater than a week ago. She also complains of cardiac symptoms.) Context: Sudden Onset Timing: Continuous Quality: Neuro symptoms are continuous and see HPI narrative for detail. Cardiac sy Location: Neuro and cardiovascular Current Severity: Severe Maximum Severity: Severe Worsened by: Dyspnea on exertion, orthopnea and altered sensation weakness left side Relieved by: Nothing Associated Symptoms Associated Symptoms: Orthostatics Narrative Narrative: Patient is a 77-year-old woman with history of and on Eliquis stage III diastolic dysfunction with a preserved ejection fraction of 55%. There is mild focal aortic valve calcification noted. Pulmonary artery systolic pressure is 46. This information was obtained from echocardiogram interpreted by Dr. Maxim Ibarra on August 06, 2022. Patient presents because of facial droop, altered sensation and weakness left side. She states the weakness in her left upper extremity has improved. She was unaware that she had a left facial droop. She thought the droop was on the right side. She was questioned regarding compliance with her anticoagulant, Eliquis. She states she has not missed a dose. She denies headache. She denies recent head trauma. She denies ocular, visual auditory symptoms. She denies trouble with speech or swallowing. She denies problems with coordination or balance. She denies black or maroon-colored stool. She denies increased orthopnea. She denies PND. She denies chest comfort. Prior similar symptoms: No Recent Illness/Hospitalization: No PFSH [facility], [facility] Medical History Abnormal bruising Acute cholecystitis Arthritis Atrial fibrillation Atrial fibrillation with RVR (10/31/18) Moses's esophagus Calculus of kidney Cancer Cardiomyopathy in other diseases classified elsewhere Carpal tunnel syndrome Chest pain Chronic diastolic (congestive) heart failure Chronic neck and back pain Diarrhea Difficulty balancing when standing GERD (gastroesophageal reflux disease) Heart disease History of DVT (deep vein thrombosis) Hypertension Non-rheumatic tricuspid valve insufficiency Nonrheumatic aortic valve stenosis Panlobular emphysema Paroxysmal atrial fibrillation Rotator cuff tear Scoliosis of cervical spine Shoulder pain SOB (shortness of breath) Tendonitis of shoulder, right Tubular adenoma of colon URI (upper respiratory infection) Home Medications multivitamin with folic acid 400 mcg tablet 1 tab PO DAILY supplement 03/15/13 [History Last Taken 10/31/18 07:00] melatonin 3 mg capsule 3 mg PO HS 01/19/21 [History Last Taken Unknown] calcium carbonate 500 mg calcium (1,250 mg) tablet 500 mg PO DAILY 06/25/21 [History Last Taken Unknown] diclofenac sodium 75 mg tablet,delayed release 75 mg PO .COMPLEX 06/25/21 [History Last Taken Unknown] furosemide 40 mg tablet 40 mg PO DAILY #90 tabs 08/31/21 [Rx Last Taken Unknown] sucralfate 1 gram tablet 1 g PO QACHS 05/07/22 [History Last Taken Unknown] apixaban 5 mg tablet 5 mg PO BID #180 tabs 06/14/22 [Rx Last Taken 08/05/22] valsartan 40 mg tablet 40 mg PO DAILY pt only taking 1/2 pill, ord by Dr. Manley 07/11/22 [History Last Taken Unknown] cyclobenzaprine 10 mg tablet 10 mg PO HS PRN muscle spasm 07/25/22 [History Last Taken Unknown] famotidine 20 mg tablet 20 mg PO BID 07/25/22 [History Last Taken Unknown] potassium chloride 20 mEq tablet,extended release(part/cryst) 20 meq PO DAILY #180 tabs 07/25/22 [Rx Last Taken Unknown] metoprolol succinate 50 mg tablet,extended release 24 hr 100 mg PO BID #30 tabs 07/29/22 [Rx Last Taken 08/05/22] flecainide 100 mg tablet 150 mg PO BID #90 tabs 08/05/22 [Rx Last Taken Unknown] Allergy/AdvReac Type Severity Reaction Status Date / Time etodolac Allergy Intermediate Other Verified 08/08/22 15:53 diltiazem HCl [From Cardizem] Allergy Swelling Verified 08/08/22 15:53 of face and neck naproxen Allergy Swelling Verified 08/08/22 15:53 (whole body) prednisone Allergy Other Verified 08/08/22 15:53 amiodarone AdvReac Severe Severe Verified 08/08/22 15:53 dyspnea after taking PO Amiodarone adhesive AdvReac Rash Verified 08/08/22 15:53 albuterol AdvReac Other Verified 08/08/22 15:53 codeine AdvReac Vomiting Verified 08/08/22 15:53 hydrocodone bitartrate AdvReac Vomiting Verified 08/08/22 15:53 [From Vicodin] morphine AdvReac Vomiting Verified 08/08/22 15:53 Family History Sister Afib Father CAD (coronary artery disease) Brother CVA (cerebral vascular accident) Mother No problems noted. Sister No problems noted. Brother Wilsons disease Brother Wilsons disease Surgical History H/O hernia repair H/O neck surgery History of cardioversion (11/23/18) History of left heart catheterization (03/15/13) History of radiofrequency ablation procedure for cardiac arrhythmia (07/27/15) Hx of cholecystectomy Hx of fusion of cervical spine ovarian surgery Social History Smoking Status: Former smoker alcohol intake: never substance use type: does not use caffeine: Yes Type: coffee Number of servings: 1 what type of physical activity do you participate in: walking frequency: daily seatbelt use: always do you feel safe at home: Yes ROS ROS ED Constitutional Constitutional ED: Denies chills, fever(s) or subjective Eyes Eyes: Denies blurry vision, change in vision or diplopia ENT ENT ED: Denies ear pain, rhinorrhea or sore throat Cardiovascular Cardiovascular: Reports orthopnea and other Details: Orthostatic hypotension ; Denies chest pain, palpitations, paroxysmal nocturnal dyspnea or racing heartbeat Respiratory/Chest Respiratory/Chest: Reports dyspnea, dyspnea on exertion and orthopnea; Denies cough or paroxysmal nocturnal dyspnea Gastrointestinal Gastrointestinal: Denies abdominal pain, diarrhea, melena, nausea or vomiting Genitourinary Genitourinary ED: Denies dysuria, hematuria or urinary frequency Musculoskeletal Musculoskeletal: Denies arthralgias, back pain, myalgias or neck pain Integumentary Denies abscess, Abrasions or rash Neurologic Neurologic: Reports paresthesias and weakness; Denies headache(s) Endocrine Endocrinology: Denies cold intolerance or heat intolerance Hematologic/Lymphatic Hematologic/Lymphatic: Reports systems reviewed and no addt'l complaints, except as documented EXAM Physical Exam Narrative Exam Narrative: NIH stroke scale General transfer line: 4 facial palsy one-point 6 left leg one-point 8 sensory one-point Total score 3 Const Vital Signs: 08/08/22 15:53 08/08/22 16:23 08/08/22 16:25 Temperature 97 F L Temperature Source Temporal Pulse Rate 45 L 42 L 51 L Respiratory Rate 14 20 H 17 Blood Pressure 151/89 H 169/66 H 169/66 H Blood Pressure Mean 109 100 100 Pulse Ox 92 96 94 Oxygen Delivery Method Room Air Room Air Room Air 08/08/22 16:26 08/08/22 16:29 Temperature Temperature Source Pulse Rate 38 L Respiratory Rate Blood Pressure Blood Pressure Mean Pulse Ox Oxygen Delivery Method Room Air Positive well nourished and well developed Constitutional Narrative: Patient appears pale. General Appearance ED: well developed and pallor; Negative for cyanotic or NAD HEENT Reports moist mucous membranes HEENT Narrative: Head is atraumatic normocephalic. There is no clinical findings of basilar skull fracture or head trauma. There is no septal deviation hematoma. Posterior pharynx unremarkable. There is no deviation of the tongue with protrusion. Eyes PERRL and EOMs intact bilaterally Eyes Narrative: There is no nystagmus. General Eye ED: Negative for pale conjunctiva or scleral icterus Neck no lymphadenopathy, supple and no JVD Neck Narrative: Scar noted anterior right neck due to cervical spine surgery. Chest Wall inspection of chest normal and palpation of chest normal Resp No normal respiratory effort and No clear to auscultation bilaterally Auscultation: rales bilateral base Cardio regular rhythm, S1 normal heart sound, S2 normal heart sound and no murmurs Rate: bradycardia GI normal to inspection, nondistended, normoactive bowel sounds, non-tender, non-distended and no masses; Negative for hepatosplenomegaly Back/Spine no CVA tenderness Thoracic Spine / Upper Back: Negative for thoracic spinal tenderness Lumbar Spine / Lower Back: Negative for lumbar spinal tenderness Extremity General Extremety ED: Yes edema General Extremity: edema Neuro oriented x3, CN's II-XII intact bilaterally and No no sensory deficits noted Neuro Narrative: Altered sensation left side of face, left upper and left lower extremity. Weakness noted left lower extremity. Patient has a facial droop on the left. Sensorium / Orientation: alert Motor Exam: Negative for strength 5/5 throughout Skin no rashes or lesions noted, no wounds and No skin turgor normal General Skin Exam: jaundice and pallor; Negative for elasticity normal MDM MDM MDM Narrative Medical decision making narrative: Call was placed to Dr. Esteves since he recently saw patient. He informed that she is on flecainide 100 mg twice daily and metoprolol 100 mg twice daily. Recommendation since she is hemodynamically stable is hold metoprolol for this time. Patient has severe bradycardia. She is hemodynamically stable. Pacemaker pads were applied and resuscitation cart brought to room. She is also had a stroke and will need a stroke work-up. Appropriate orders were initiated for the stroke work-up. Since patient appears jaundiced and endorses dark-colored urine hepatic profile was added to the stroke order set. Chest x-ray is obtained since patient appears dyspneic and has bibasilar rales. History & Record Review Discussion w/independent historian: Patient, Friend and Other (Lotteries Agent, Dr. Maxim Ibarra) Additional record(s) reviewed:: Prior inpatient record, Prior outpatient record and Prior labs Lab Data Attestation: I reviewed the patient's lab results. Lab results narrative: CBC is unremarkable. Coags normal. Electrolyte panel is unremarkable. Hepatic panel is pending. Labs: Laboratory Results - last 24 hr 08/08/22 08/08/22 08/08/22 16:20 16:20 16:20 WBC 8.7 RBC 4.29 Hgb 12.6 Hct 38.9 MCV 90.7 MCH 29.4 MCHC 32.4 RDW Std Deviation 45.7 H RDW Coeff of Elvie 14.0 Plt Count 314 MPV 10.5 Immature Gran % (Auto) 0.300 Neut % (Auto) 59.9 Lymph % (Auto) 28.7 [place] % (Auto) 9.6 Eos % (Auto) 1.2 Baso % (Auto) 0.3 Absolute Neuts (auto) 5.2 Absolute Lymphs (auto) 2.49 Nucleated RBC % 0 PT 17.8 H INR 1.5 APTT 34.7 Sodium 140 Potassium 4.2 Chloride 104 Carbon Dioxide 27.0 Anion Gap 9 BUN 35 H Creatinine 1.24 H Estim Creat Clear Calc 29.58 Est GFR (MDRD) Af Amer 54 L Est GFR (MDRD) Non-Af 45 L BUN/Creatinine Ratio 28.2 H Glucose 103 Calcium 9.9 Troponin I High Sens 8 Radiography Chest X-Ray - ED: 1 View and Read by ED Physician (Chest x-ray reveals chronic changes. There is no obscuring of the cardiac silhouette. There is no evidence of effusion or heart failure. [place] structures are unremarkable. This was independently reviewed interpreted by me) Diagnostic Testing: Clinical Impression(s) from Imaging Studies Brain CT 08/08/22 16:21 IMPRESSION: There are no acute findings. Chronic involutional changes of the brain. Electronically Signed: Yeyo Moran MD at 17:02 EDT , ADDENDUM: 08/08/22 1709 IMPRESSION: There are no acute findings. Chronic involutional changes of the brain. N.B. : The above Results were Read Back by Yeyo Moran MD to Wilian Dempsey MD, and understanding confirmed on 08/08/2022 17:03:01 (ET). Electronically Signed: Yeyo Moran MD at 17:02 EDT , Chest X-Ray 08/08/22 16:42 IMPRESSION: There are no acute findings. Electronically Signed: Yeyo Moran MD at 17:03 EDT , CT of the head without contrast reveals no evidence of subdural, epidural, subarachnoid hemorrhage or intraparenchymal hemorrhage. There is no obvious stroke noted. Awaiting formal read by radiologist. Rhythm Strip Rhythm Strip: Sinus Rhythm Rate: 33 Ectopy: PAC(s) EKG Initial EKG: Attestation: I personally reviewed and interpreted this EKG as follows: Interpretation: Sinus Bradycardia (Ventricular rate is 33. There is premature supraventricular complexes noted. IL interval is 168 ms. Cures duration 118 ms. QT duration 474 ms. [place] to left. There is evidence of an RR prime in V1 and V2 consistent with a incomplete right bundle branch block. There is no civic changes noted.) Management Discussion w/another healthcare provider: Hospitalist and Supervisor [facility] Critical Care Time Critical Care Time: Yes Critical care time (excluding procedures): 30-74 minutes (37 minutes), Including time spent: (History, physical, documentation, review of outside records and interpretation of laboratory results initiation of therapy), Discussing w/Patient &/or Family/[place] Operator, Discussing w/Consultants (Cardiology, hospitalist), Arranging Admission or Transfer and Performing Direct Patient Care at Bedside Discharge Plan Dx/Rx/DC Orders Clinical Impression: Bradycardia, sinus, persistent, severe, intermediate manager (current) use of anticoagulants, Chronic diastolic (congestive) heart failure, Acute stroke due to ischemia Disposition Disposition: Acute Care [facility]
[2022-08-08 16:36] LABS: Absolute Lymphocyte Count 2.49 X10^3/uL (0.83-4.51); Absolute Neutrophil Count 5.2 X10^3/uL (2.0-7.7); Basophil# 0.03 X10^3/uL; Basophil% 0.3 % (0-1); Eosinophils% 1.2 % (0-5); Hematocrit 38.9 % (37-47); Hemoglobin 12.6 g/dL (12.0-15.0); Lymphocyte # 2.49 X10^3/ul (0.83-4.51); Lymphocyte % 28.7 % (19-41); Mean Corp Hgb Conc 32.4 g/dL (32-36); Mean Corpuscular Hgb 29.4 pg (27.0-32.0); Mean Corpuscular Volume 90.7 fL (81-99); Mean Platelet Vol. 10.5 fl (6.2-12.0); Monocyte# 0.83 X10^3/uL; Monocyte% 9.6 % (0-10); NRBC Flagged by Analyzer 0 % (0-5); Neutrophil # 5.19 X10^3/uL (2.7-7.7); Neutrophil % 59.9 % (47-70); Platelet Count 314 K/mm3 (150-450); RBC Distribution Width SD 45.7 fl (35.1-43.9); Red Blood Count 4.29 M/mm3 (4.2-5.4); White Blood Count 8.7 K/mm3 (4.4-11.0)
--- NOTE | 2022-08-08 16:42 | RAD_ITS ---
STUDY: XR Chest 1 View 08/08/2022 4:56 PM REASON FOR EXAM: Female, 77 years old. LT SIDED WEAKNESS X 1.5 WEEKS.PAIN Neuro deficit, acute, stroke suspected COMPARISON: 07.12.22 TECHNIQUE: XR Chest 1 View FINDINGS: There is no demonstrated pleural abnormality. There is an elevated right hemidiaphragm. Enlarged heart size. Normal mediastinum. Normal rayne. Prominent appearing increased interstitial lung markings. Normal visualized pulmonary arteries. There is atherosclerotic calcification of the aortic arch with tortuosity. There are diffuse degenerative changes of the visualized thoracic spine. There is degenerative osteoarthritis of the bilateral shoulders. There is no demonstrated abnormality of the visualized soft tissue structures of the upper abdomen. RAD/Chest 1 View IMPRESSION: There are no acute findings. Electronically Signed: Yeyo Moran MD at 17:03 EDT ,
[2022-08-08 16:43] LABS: International Normalized Ratio 1.5; Prothrombin Time (Protime)PT. 17.8 SECONDS (11.7-14.9)
[2022-08-08 16:44] LABS: Partial Thromboplast Time 34.7 Seconds (24.1-36.2)
[2022-08-08 16:54] LABS: Anion Gap 9 (5-15); BUN 35 mg/dL (7-18); BUN/Creat Ratio 28.2 RATIO (10-20); Calcium,Total 9.9 mg/dL (8.5-10.1); Chloride 104 mmol/L (98-107); Creatinine, Serum 1.24 mg/dL (0.55-1.02); EST Glomerular Filtration Rate 45 mL/min (>60); Est Glom Filt Rate - Afr Amer 54 mL/min (>60); Estimated Creatinine Clearance 29.58 ml/min; Glucose 103 mg/dL (74-106); Potassium 4.2 mmol/L (3.5-5.1); Sodium Level 140 mmol/L (136-145); Troponin-I HS 8 pg/mL (3.0-54.0)
[2022-08-08 17:19] LABS: AST(SGOT) 130 U/L (15-37); Alanine Aminotransfer ALT/SGPT 187 U/L (13-56); Albumin, Serum 3.7 g/dL (3.2-5.0); Alkaline Phosphatase 124 U/L (45-117); Bilirubin, Direct 0.16 mg/dL (0.00-0.30); Globulin 3.4 g/dL (2.2-4.2); Protein, Total 7.1 g/dL (6.4-8.2)
--- NOTE | 2022-08-08 17:39 | ED.RN ---
[facility] STOPPED PER
--- NOTE | 2022-08-08 18:10 | HP.PCM.HOS_ITS ---
HPI - General General Date of Admission: 08/08/22 Date of Service: 08/08/22 Chief Complaint: left sided weakness HPI Narrative SHERRELL DELGADO, is a 77 F who presents with left-sided weakness. Symptoms began about 2 weeks ago. Patient states that she had seen her primary care doctor and is unclear if the patient even brought this issue up but just was described as not to me. She presented because she was having some facial issues which was new. So she was directed to the emergency room. In the emergency room, patient was noted to have left-sided weakness left facial droop. Patient underwent head CT that showed no acute process. Also while she was there should her heart rate was noted to be in the 30s. Patient has been taking metoprolol succinate 100 twice daily in addition to her flecainide. Appears from the last cardiology note that she is supposed be taking metoprolol succinate 50 twice daily. Patient does state that she has been feeling dizzy. Since being in the emergency room, patient's heart rate has improved into the 50s. [facility] Medical History Abnormal bruising Acute cholecystitis Arthritis Atrial fibrillation Atrial fibrillation with RVR (10/31/18) Moses's esophagus Calculus of kidney Cancer Cardiomyopathy in other diseases classified elsewhere Carpal tunnel syndrome Chest pain Chronic diastolic (congestive) heart failure Chronic neck and back pain Diarrhea Difficulty balancing when standing GERD (gastroesophageal reflux disease) Heart disease History of DVT (deep vein thrombosis) Hypertension Non-rheumatic tricuspid valve insufficiency Nonrheumatic aortic valve stenosis Panlobular emphysema Paroxysmal atrial fibrillation Rotator cuff tear Scoliosis of cervical spine Shoulder pain SOB (shortness of breath) Tendonitis of shoulder, right Tubular adenoma of colon URI (upper respiratory infection) Home Medications multivitamin with folic acid 400 mcg tablet 1 tab PO DAILY supplement 03/15/13 [History Last Taken 10/31/18 07:00] melatonin 3 mg capsule 3 mg PO HS 01/19/21 [History Last Taken Unknown] calcium carbonate 500 mg calcium (1,250 mg) tablet 500 mg PO DAILY 06/25/21 [History Last Taken Unknown] diclofenac sodium 75 mg tablet,delayed release 75 mg PO .COMPLEX 06/25/21 [History Last Taken Unknown] furosemide 40 mg tablet 40 mg PO DAILY #90 tabs 08/31/21 [Rx Last Taken Unknown] sucralfate 1 gram tablet 1 g PO QACHS 05/07/22 [History Last Taken Unknown] apixaban 5 mg tablet 5 mg PO BID #180 tabs 06/14/22 [Rx Last Taken 08/05/22] valsartan 40 mg tablet 40 mg PO DAILY pt only taking 1/2 pill, ord by Dr. Manley 07/11/22 [History Last Taken Unknown] cyclobenzaprine 10 mg tablet 10 mg PO HS PRN muscle spasm 07/25/22 [History Last Taken Unknown] famotidine 20 mg tablet 20 mg PO BID 07/25/22 [History Last Taken Unknown] potassium chloride 20 mEq tablet,extended release(part/cryst) 20 meq PO DAILY #180 tabs 07/25/22 [Rx Last Taken Unknown] metoprolol succinate 50 mg tablet,extended release 24 hr 100 mg PO BID #30 tabs 07/29/22 [Rx Last Taken 08/05/22] flecainide 100 mg tablet 150 mg PO BID #90 tabs 08/05/22 [Rx Last Taken Unknown] Allergy/AdvReac Type Severity Reaction Status Date / Time etodolac Allergy Intermediate Other Verified 08/08/22 15:53 diltiazem HCl [From Cardizem] Allergy Swelling Verified 08/08/22 15:53 of face and neck naproxen Allergy Swelling Verified 08/08/22 15:53 (whole body) prednisone Allergy Other Verified 08/08/22 15:53 amiodarone AdvReac Severe Severe Verified 08/08/22 15:53 dyspnea after taking PO Amiodarone adhesive AdvReac Rash Verified 08/08/22 15:53 albuterol AdvReac Other Verified 08/08/22 15:53 codeine AdvReac Vomiting Verified 08/08/22 15:53 hydrocodone bitartrate AdvReac Vomiting Verified 08/08/22 15:53 [From Vicodin] morphine AdvReac Vomiting Verified 08/08/22 15:53 Family History Sister Afib Father CAD (coronary artery disease) Brother CVA (cerebral vascular accident) Mother No problems noted. Sister No problems noted. Brother Wilsons disease Brother Wilsons disease Surgical History H/O hernia repair H/O neck surgery History of cardioversion (11/23/18) History of left heart catheterization (03/15/13) History of radiofrequency ablation procedure for cardiac arrhythmia (07/27/15) Hx of cholecystectomy Hx of fusion of cervical spine ovarian surgery Social History Smoking Status: Former smoker alcohol intake: never substance use type: does not use caffeine: Yes Type: coffee Number of servings: 1 what type of physical activity do you participate in: walking frequency: daily seatbelt use: always do you feel safe at home: Yes ROS ROS Narrative Was have some dizziness with gaze. All review of systems were negative except as mentioned above in the history of present illness and the other review of systems. Vital Signs Vital Signs Vital Signs: 08/08/22 15:53 08/08/22 16:23 08/08/22 16:25 Temperature 36.1 C L Temperature Source Temporal Pulse Rate 45 L 42 L 51 L Respiratory Rate 14 20 H 17 Blood Pressure 151/89 H 169/66 H 169/66 H Blood Pressure Mean 109 100 100 Pulse Ox 92 96 94 Oxygen Delivery Method Room Air Room Air Room Air 08/08/22 16:26 08/08/22 16:29 08/08/22 16:51 Temperature Temperature Source Pulse Rate 38 L 54 L Respiratory Rate 17 Blood Pressure 160/74 H Blood Pressure Mean 102 Pulse Ox 96 Oxygen Delivery Method Room Air Room Air 08/08/22 17:21 08/08/22 17:39 Temperature 36.8 C Temperature Source Temporal Pulse Rate 59 L 49 L Respiratory Rate 15 19 H Blood Pressure 154/78 H 153/78 H Blood Pressure Mean 103 103 Pulse Ox 97 96 Oxygen Delivery Method Room Air Room Air Weight Weight: 61.5 kg Body Mass Index (BMI) 25.6 Physical Exam Narrative - Physical Exam General: Alert, Oriented x3, Cooperative HEENT: Atraumatic, PERRLA, EOMI, Normocephalic. Left facial droop Oral: Moist Mucosa, No Gingival or Mucosal Lesions/ Ulcerations Neck: Supple, No JVD, Negative Carotid Bruits Lungs: Clear to auscultation, Normal air movement Cardiovascular: Regular rate, Normal S1, Normal S2, No murmurs Abdomen: Bowel Sounds Present, Soft, Non Tender, Non-Distended, No Hepato- splenomegaly Extremities: No clubbing, No cyanosis, No edema, Capillary Refill Less than 3 Seconds Skin: No rashes, No breakdown Musculoskeletal: No Tenderness to Palpation of Joints or Extremities Neurological: Cranial nerves II through XII grossly intact with exception of left facial droop. Muscle strength is 5-5 in the right upper and right lower extremity and 4-5 in the left upper and left lower extremity. Patient does have some ataxia that can be explained by the weakness that she has on that side. Psych/Mental Status: Normal Affect, Appropriate Results Lab / Micro Data Attestation: I reviewed the patient's lab results. Result Diagrams: 08/08/22 16:20 08/08/22 16:20 Labs: Laboratory Results - last 24 hr 08/08/22 16:20: WBC 8.7, RBC 4.29, Hgb 12.6, Hct 38.9, MCV 90.7, MCH 29.4, MCHC 32.4, RDW Std Deviation 45.7 H, RDW Coeff of Elvie 14.0, Plt Count 314, MPV 10.5, Immature Gran % (Auto) 0.300, Neut % (Auto) 59.9, Lymph % (Auto) 28.7, [place] % (Auto) 9.6, Eos % (Auto) 1.2, Baso % (Auto) 0.3, Absolute Neuts (auto) 5.2, Absolute Lymphs (auto) 2.49, Nucleated RBC % 0 08/08/22 16:20: PT 17.8 H, INR 1.5, APTT 34.7 08/08/22 16:20: Sodium 140, Potassium 4.2, Chloride 104, Carbon Dioxide 27.0, Anion Gap 9, BUN 35 H, Creatinine 1.24 H, Estim Creat Clear Calc 29.58, Est GFR (MDRD) Af Amer 54 L, Est GFR (MDRD) Non-Af 45 L, BUN/Creatinine Ratio 28.2 H, Glucose 103, Calcium 9.9, Troponin I High Sens 8 08/08/22 16:20: Total Bilirubin 0.40, Direct Bilirubin 0.16, AST 130 H, ALT 187 H, Alkaline Phosphatase 124 H, Total Protein 7.1, Albumin 3.7, Globulin 3.4 Rhythm Strip Rhythm Strip: Sinus Rhythm Rate: 33 Ectopy: PAC(s) EKG Initial EKG: Attestation: I personally reviewed and interpreted this EKG as follows: Prior EKG tracings: available for review EKG Rhythm Intrepretation: Sinus Bradycardia Radiology Impression Brain CT 08/08/22 16:21 IMPRESSION: There are no acute findings. Chronic involutional changes of the brain. Electronically Signed: Yeyo Moran MD at 17:02 EDT , ADDENDUM: 08/08/22 1709 IMPRESSION: There are no acute findings. Chronic involutional changes of the brain. N.B. : The above Results were Read Back by Yeyo Moran MD to Wilian Dempsey MD, and understanding confirmed on 08/08/2022 17:03:01 (ET). Electronically Signed: Yeyo Moran MD at 17:02 EDT , Chest X-Ray 08/08/22 16:42 IMPRESSION: There are no acute findings. Electronically Signed: Yeyo Moran MD at 17:03 EDT , Assessment & Plan Assessment/Plan (1) Acute stroke due to ischemia: PLAN: Onset was roughly 2 weeks ago according the patient. Despite that, patient's CAT scan did not show any acute process. Additional stroke work-up: MRI of the brain, 2D echocardiogram, MRA of the head and neck. Physical, occupational and speech therapy Check fasting lipid panel (2) Bradycardia, sinus, persistent, severe: PLAN: Patient was supposed to be taking metoprolol succinate 50 twice a day but was taking 100 twice a day in addition to flecainide. Discussed with Dr. Ibarra, who recommends holding the metoprolol succinate and flecainide for now and then to resume it, assuming her heart rate is better, add metoprolol succinate 50 twice daily and flecainide 100 twice daily. PLAN: Plan Other chronic conditions * Paroxysmal atrial fibrillation: Flecainide metoprolol being held for now. Continue with apixaban * Hypertension: Fair control at this time. We will hold off on the furosemide for now VTE prophylaxis: Not indicated as patient is already anticoagulated. Disposition: To be determined. Based on the stroke work-up as well as therapy evaluations. Charges/Coding Visit Charges Inpatient E&M: 56108 Init Hosp L3
[2022-08-08 20:14] LABS: Troponin-I HS 9 pg/mL (3.0-54.0)
[2022-08-08] MEDS: MELATONIN 3 MG TABLET PO (22:19)
[2022-08-08] MEDS: Famotidine 20 MG Tablet PO (22:19)
[2022-08-08] MEDS: APIXABAN 5 MG TABLET PO (22:19)
[2022-08-08] MEDS: Sucralfate 1 GM Tablet PO (22:19)
[2022-08-09] VITALS (24 sets, daily range): BP systolic 120–152; BP diastolic 55–76; PULSE 39–56; RESP 12–18; TEMP 36.6–36.7; O2SAT 93–98; BMI 25.5
[2022-08-09 04:30] LABS: Anion Gap 5 (5-15); BUN 34 mg/dL (7-18); Calcium,Total 8.7 mg/dL (8.5-10.1); Chloride 110 mmol/L (98-107); Cholesterol 132 mg/dL (200); Creatinine, Serum 0.92 mg/dL (0.55-1.02); EST Glomerular Filtration Rate 63 mL/min (>60); Est Glom Filt Rate - Afr Amer 77 mL/min (>60); Estimated Creatinine Clearance 39.87 ml/min; Glucose 84 mg/dL (74-106); High Density Lipoprotein 50 mg/dL; Potassium 3.8 mmol/L (3.5-5.1); Sodium Level 143 mmol/L (136-145); Triglycerides 54 mg/dL; Very Low Density Lipoprotein 11 mg/dL (5-40)
[2022-08-09] MEDS: Sucralfate 1 GM Tablet PO ×2 (06:44→21:48)
--- NOTE | 2022-08-09 07:52 | PN.HOSP_ITS ---
Reason for Visit Reason for Visit: Diagnoses Cerebral infarction, unspecified (08/08/22) Bradycardia, unspecified (08/08/22) Subjective Subjective Still with LLE weakness. Objective Data Objective Data Vital Signs: Vital Signs Temp Pulse Resp BP Pulse Ox O2 Del Method O2 Flow Rate 36.6 C 45 L 18 132/74 H 96 Room Air 2 08/09/22 02:00 08/09/22 02:40 08/09/22 03:01 08/09/22 02:00 08/09/22 06:54 08/09/22 06:54 08/08/22 23:50 Oxygen Flow Rate (L/min) 2 Oxygen Delivery Method Room Air Weight: 61.326 kg Body Mass Index (BMI) 25.5 Lab / Micro Data Result Diagrams: 08/08/22 16:20 08/09/22 03:49 Labs: Laboratory Results - last 24 hr 08/08/22 16:20: WBC 8.7, RBC 4.29, Hgb 12.6, Hct 38.9, MCV 90.7, MCH 29.4, MCHC 32.4, RDW Std Deviation 45.7 H, RDW Coeff of Elvie 14.0, Plt Count 314, MPV 10.5, Immature Gran % (Auto) 0.300, Neut % (Auto) 59.9, Lymph % (Auto) 28.7, Barren % (Auto) 9.6, Eos % (Auto) 1.2, Baso % (Auto) 0.3, Absolute Neuts (auto) 5.2, Absolute Lymphs (auto) 2.49, Nucleated RBC % 0 08/08/22 16:20: PT 17.8 H, INR 1.5, APTT 34.7 08/08/22 16:20: Sodium 140, Potassium 4.2, Chloride 104, Carbon Dioxide 27.0, Anion Gap 9, BUN 35 H, Creatinine 1.24 H, Estim Creat Clear Calc 29.58, Est GFR (MDRD) Af Amer 54 L, Est GFR (MDRD) Non-Af 45 L, BUN/Creatinine Ratio 28.2 H, Glucose 103, Calcium 9.9, Troponin I High Sens 8 08/08/22 16:20: Total Bilirubin 0.40, Direct Bilirubin 0.16, AST 130 H, ALT 187 H, Alkaline Phosphatase 124 H, Total Protein 7.1, Albumin 3.7, Globulin 3.4 08/08/22 19:30: Troponin I High Sens 9 08/09/22 03:49: Sodium 143, Potassium 3.8, Chloride 110 H, Carbon Dioxide 28.0, Anion Gap 5, BUN 34 H, Creatinine 0.92, Estim Creat Clear Calc 39.87, Est GFR (MDRD) Af Amer 77, Est GFR (MDRD) Non-Af 63, BUN/Creatinine Ratio 37.0 H, Glucose 84, Calcium 8.7, Triglycerides 54, Cholesterol 132, LDL Cholesterol 71, VLDL Cholesterol 11, HDL Cholesterol 50 Radiography Diagnostic Testing: Radiology Impression Brain CT 08/08/22 16:21 IMPRESSION: There are no acute findings. Chronic involutional changes of the brain. Electronically Signed: Yeyo Moran MD at 17:02 EDT , ADDENDUM: 08/08/22 1709 IMPRESSION: There are no acute findings. Chronic involutional changes of the brain. N.B. : The above Results were Read Back by Yeyo Moran MD to Wilian Dempsey MD, and understanding confirmed on 08/08/2022 17:03:01 (ET). Electronically Signed: Yeyo Moran MD at 17:02 EDT , Chest X-Ray 08/08/22 16:42 IMPRESSION: There are no acute findings. Electronically Signed: Yeyo Moran MD at 17:03 EDT , Rhythm Strip Rhythm Strip: Sinus Rhythm Rate: 33 Ectopy: PAC(s) Physical Exam Const alert and no apparent distress HEENT head/scalp atraumatic and moist oral mucous membranes Eyes PERRL and EOMs intact bilaterally Neck no lymphadenopathy Resp normal respiratory effort, no retractions and no use of accessory muscles Cardio regular rate, regular rhythm, S1 normal heart sound and S2 normal heart sound GI normal to inspection, nondistended, normoactive bowel sounds Neuro Neuro Narrative: left sided weakness. left facial droop. Assessment & Plan Assessment/Plan (1) Left-sided weakness: PLAN: MRI brain negative MRA brain shos 2mm aneurysm left internal carotid artery Check MRI c-spine (2) Bradycardia, sinus, persistent, severe: PLAN: Improved Patient was supposed to be taking metoprolol succinate 50 twice a day but was taking 100 twice a day in addition to flecainide. Discussed with Dr. Ibarra, who recommends holding the metoprolol succinate and flecainide for now and then to resume it, assuming her heart rate is better, add metoprolol succinate 50 twice daily and flecainide 100 twice daily. Patient states she take metoprolol succinate 50 BID, not 100 on JUL. So, will decrease to 50 daily when appropriate. PLAN: Plan Other chronic conditions * Paroxysmal atrial fibrillation: Flecainide metoprolol being held for now. Continue with apixaban * Hypertension: Fair control at this time. We will hold off on the furosemide for now VTE prophylaxis: Not indicated as patient is already anticoagulated. Disposition: To be determined. Based on the stroke work-up as well as therapy evaluations. Charges/Coding Visit Charges Inpatient E&M: 03734 Subs Hosp L2
[2022-08-09] MEDS: APIXABAN 5 MG TABLET PO ×2 (08:25→21:48)
[2022-08-09] MEDS: Famotidine 20 MG Tablet PO (08:32)
--- NOTE | 2022-08-09 09:00 | MRI_ITS ---
HISTORY: CVA. TECHNIQUE: Routine ergo-vg-ohwvrb carotid MR angiogram protocol was performed without contrast. 3D reconstructions were reviewed. NASCET criteria using the distal ICAs for comparison were used for evaluation of stenoses. 545 images. COMPARISON: None. FINDINGS: Limited evaluation due to motion artifact. AORTIC ARCH AND BRANCHES: Unremarkable. RIGHT CCA: No occlusion or significant stenosis. RIGHT ICA: No occlusion or significant stenosis. LEFT CCA: No occlusion or significant stenosis. LEFT ICA: No occlusion or significant stenosis. VERTEBRAL ARTERIES: No occlusion or significant stenosis. Dominant left and hypoplastic right vertebral arteries. MRI/MRA Neck without Contrast IMPRESSION: Motion artifact. No evidence for significant stenosis or occlusion in the vertebral or carotid arteries of the neck. Electronically Signed: Leonora Matthews MD at 11:19 EDT ,
--- NOTE | 2022-08-09 09:00 | MRI_ITS ---
HISTORY: CVA. TECHNIQUE: Routine false pass of Rodriguez/brain 3D time of flight MR angiogram protocol was performed without intravenous contrast. 3D reconstructions were reviewed. 193 images. COMPARISON: None. FINDINGS: ICAs: No significant stenosis at the intracranial/visualized segments. 2 mm outpouching of the mid cavernous left internal carotid artery directed medially. ACAs: No significant stenosis at the visualized segments. Hypoplastic right A1 segment. No anterior communicating artery aneurysm. MCAs: No significant stenosis or vascular malformation at the visualized segments. hand bunch maker: No significant stenosis, occlusion, or vascular malformation at the visualized segments. BASILAR ARTERY: No significant stenosis, occlusion, or aneurysm. VERTEBRAL ARTERIES: Dominant left and hypoplastic right vertebral arteries without significant stenosis or vascular malformation at the intradural/visualized segments. 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 No evidence for large vessel occlusion the false pass of Rodriguez region. Electronically Signed: Leonora Matthews MD at 11:01 EDT ,
--- NOTE | 2022-08-09 09:00 | MRI_ITS ---
HISTORY: CVA. Left weakness and numbness. TECHNIQUE: Multiplanar and multisequence MR images of the brain were obtained without contrast. 280 images. COMPARISON: CT prior day. FINDINGS: BRAIN PARENCHYMA: Very mild foci of increased T2 FLAIR signal in the bilateral cerebral white matter. No abnormal focus of restricted diffusion. No acute intracranial hemorrhage identified. CSF SPACES: Cerebral ventricles, cortical sulci, and other extra-axial CSF spaces within normal limits in size for age. No significant midline shift or other mass effect.No extra-axial fluid collection. VASCULAR SYSTEM: Major intracranial flow voids are maintained. PARANASAL SINUSES AND MASTOID AIR CELLS: No significant air fluid levels. OTHER: Bilateral lens resections. Partially imaged cervical spinal fusion hardware.. MRI/Brain without Contrast IMPRESSION: No evidence for acute infarct. Very mild chronic involutional and white matter changes. Electronically Signed: Leonora Matthews MD at 12:48 EDT ,
--- NOTE | 2022-08-09 13:05 | MRI_ITS ---
INDICATION: left sided weakness EXAMINATION: MRI - MR Spine Cervical W/O Contrast TECHNIQUE: Multiplanar and multisequence MR images of the cervical spine were performed without IV contrast. IV Contrast Dosage and Agent: None. COMPARISON: 02/01/21. FINDINGS: VERTEBRAE: Normal bone marrow signal. No fracture or compression deformity. Unchanged anterior cervical discectomy and fusion C3 C4 C5. Preserved cervical lordosis. No listhesis. Anterior and posterior longitudinal ligament and ligamentum flavum appear intact. No gross posterior interspinous ligament edema. CERVICAL SPINAL CORD: Unremarkable in signal and morphology. C2/C3: Normal disc height and morphology. Normal spinal canal and neuroforamina. C3/C4: Normal disc height and morphology. Normal spinal canal and neuroforamina. C4/C5: Normal disc height and morphology. Normal spinal canal and neuroforamina. C5/C6: Normal disc height and morphology. Normal spinal canal and neuroforamina. C6/C7: Slight broad-based posterior disc osteophyte complex with minimal spinal canal stenosis . C7/T1: Normal disc height and morphology. Normal spinal canal and neuroforamina. NECK SOFT TISSUES: No prevertebral soft tissue swelling. There is no cervical adenopathy. MRI/Spine Cervical (Routine) IMPRESSION: Prior cervical discectomy and fusion and mild spondylosis without significant change from February 01, 2021 Electronically Signed: Dmitri Patel MD at 6:49 EDT ,
--- NOTE | 2022-08-09 14:25 | CASEMGMT ---
RN?CM?MANAGER OF PRODUCTION?CM?to room to meet with patient for initial transition planning/care coordination?assessment.?RN?CM?introduced self and role at [facility].? Pt voices understanding and consents to?assessment?at this time.? Pt sitting up in chair in room in no distress at this time.?Granddaughter, Don, in room visiting and pt agreeable to her being present during assessment. Pt is A/O at this time and answers all questions appropriately.?? Care providers, pharmacy, and demographics verified/updated at this time. PCP: Dr Manley Specialists:Dr Ibarra-cardiology, Dr Schofield-ortho, Dr Moreno-pain mgmt, Dr Stokes-GI Preferred Pharmacy: [facility] Retail Insurance: [employer]/[facility], [place] [facility] Prescription Benefit:?Yes Living Will/HPOA:? Pt does not currently have LW/HCPOA and would like to complete. HUSEYIN, Jackelyn, made aware. Pt made aware, if SW unable to complete w/her prior to discharge that this can be completed as an OP.? Provided information on AD and given packet to complete, if she wishes to do so. LNOK: Pt has one son. Pt states he is getting out of intermediate soon and she does not want him involved/making medical decisions. Sister, Usha. Granddaughter-Don. Living Arrangements: Pt lives alone in one-story home w/basement where laundry is. One step to enter home. Pt independent w/ADL's and IADL's prior to hospitalization. Family can assist as needed. Transportation:?Pt states drives self and states no transportation concerns at this time.?Granddaughter will take pt home @ discharge. DME: ? Denies using any DME and denies needs.?She does have a pulse ox. HHC/SNF: No hx of either. Pt interested in doing OP ST @ [facility]. Upon further discussion, pt also interested in doing OP PT/OT there as well. Scripts obtained from [facility] and provided to pt for OP ST, PT, and OT. Pt wishes to return home and states has no concerns with going home at time of discharge.? CM?to follow for any further discharge planning/needs.? Pt voices no further concerns/needs at this time.? Advised pt to ask for?CM?if any further questions/concerns/needs arise.? Voices understanding. PLAN:??Home w/OP ST/PT/OT and family support. Florentin BSN?RN?CM
[2022-08-09] MEDS: Acetaminophen 325 MG Tablet 650 MG PO (14:31)
[2022-08-09] MEDS: 0.9% Saline Lock 10 ML Syringe IV (21:48)
[2022-08-09] MEDS: MELATONIN 3 MG TABLET PO (21:48)
[2022-08-10] VITALS (7 sets, daily range): BP systolic 152–169; BP diastolic 54–81; PULSE 50–68; RESP 13–24; TEMP 36.2–36.9; O2SAT 93–100; BMI 25.5
[2022-08-10] MEDS: Acetaminophen 325 MG Tablet 650 MG PO ×3 (02:24→21:29)
--- NOTE | 2022-08-10 05:59 | EKG12_ITS ---
Test Reason : AM EKG Blood Pressure : / mmHG Vent. Rate : 055 BPM Atrial Rate : 055 BPM P-R Int : 190 ms QRS Dur : 096 ms QT Int : 480 ms P-R-T Axes : 064 -37 -55 degrees QTc Int : 459 ms Sinus bradycardia Left axis deviation Nonspecific ST and T wave abnormality Abnormal ECG When compared with ECG of 08-AUG-2022 16:15, MANUAL COMPARISON REQUIRED, DATA IS UNCONFIRMED Confirmed by JOEL HICKS, JO ANN ([id number]), pictures editor DAVID CONNOLLY ([id number]) on 08/14/2022 10:22:16 AM Referred By: Confirmed By:SRIDHAR MALDONADO MD
[2022-08-10] MEDS: Sucralfate 1 GM Tablet PO ×4 (06:39→21:29)
--- NOTE | 2022-08-10 07:46 | PN.HOSP_ITS ---
Reason for Visit Reason for Visit: Diagnoses Cerebral infarction, unspecified (08/08/22) Bradycardia, unspecified (08/08/22) Weakness (08/08/22) Subjective Subjective Denies any new complaints Objective Data Objective Data Vital Signs: Vital Signs Temp Pulse Resp BP Pulse Ox O2 Del Method O2 Flow Rate 36.6 C 54 L 16 156/62 H 94 Room Air 2 08/10/22 06:30 08/10/22 06:30 08/10/22 06:30 08/10/22 06:30 08/10/22 06:30 08/10/22 06:30 08/10/22 02:30 Oxygen Flow Rate (L/min) 2 Oxygen Delivery Method Room Air Weight: 61.326 kg Body Mass Index (BMI) 25.5 Lab / Micro Data Result Diagrams: 08/08/22 16:20 08/09/22 03:49 Radiography Diagnostic Testing: Radiology Impression Brain MRI 08/09/22 09:00 IMPRESSION: No evidence for acute infarct. Very mild chronic involutional and white matter changes. 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 No evidence for large vessel occlusion the upper [place] of Rodriguez region. Electronically Signed: Leonora Matthews MD at 11:01 EDT , Neck MRA 08/09/22 09:00 IMPRESSION: Motion artifact. No evidence for significant stenosis or occlusion in the vertebral or carotid arteries of the neck. Electronically Signed: Leonora Matthews MD at 11:19 EDT , Cervical Spine MRI 08/09/22 13:05 IMPRESSION: Prior cervical discectomy and fusion and mild spondylosis without significant change from February 01, 2021 Electronically Signed: Dmitri Patel MD at 6:49 EDT , Rhythm Strip Rhythm Strip: Sinus Rhythm Rate: 33 Ectopy: PAC(s) Physical Exam Const alert and no apparent distress HEENT head/scalp atraumatic and moist oral mucous membranes Resp normal respiratory effort, no retractions, no use of accessory muscles and clear to auscultation bilaterally Cardio regular rate, regular rhythm, S1 normal heart sound and S2 normal heart sound GI normal to inspection, nondistended, normoactive bowel sounds, soft to palpation, non-tender and non-distended Extremity normal to inspection Assessment & Plan Assessment/Plan (1) Left-sided weakness: PLAN: MRI brain negative MRA brain shos 2mm aneurysm left internal carotid artery MRI c-spine unremarkable for any acute process. Concerning that pt did indeed have a CVA given symptomatology. SOC teleneurology consulted. He did not appreciate any left facial droop nor upper extremity weakness (which are improved), but when he spoke to me that she indeed have these early, he seem dismissive of these concerns and would not say that she had a CVA (I even reminded him that she has afib). I feel the neurologist was anchored on the LLE and not open to discussing other possibilities given her known risk factors. Pt to follow up with neurology. Defer NCT/EMG, T and L spine MRIs as outpt unless new Sx arise. I will add ASA and atorvastatin (2) Bradycardia, sinus, persistent, severe: PLAN: Improved, but ongoing. Patient was supposed to be taking metoprolol succinate 50 twice a day but was taking 100 twice a day in addition to flecainide. Previously discussed with Dr. Ibarra, who recommends holding the metoprolol succinate and flecainide for now and then to resume it, assuming her heart rate is better, add metoprolol succinate 50 twice daily and flecainide 100 twice daily. Though the patient later stated that she took metoprolol succinate 50 BID, not 100 on JUL. So, will decrease to 50 daily when appropriate. Flecanide had been ordered, but not given given low heart rate. Continue to hold metoprolol succinate and flecanide. PLAN: Plan Other chronic conditions * Paroxysmal atrial fibrillation: Flecainide metoprolol being held for now. Continue with apixaban * Hypertension: Fair control at this time. We will hold off on the furosemide for now VTE prophylaxis: Not indicated as patient is already anticoagulated. Disposition: To be determined. pending HR as still bradycardic. Charges/Coding Visit Charges Inpatient E&M: 01665 Subs Hosp L2
--- NOTE | 2022-08-10 07:47 | TELEMED_ITS ---
SOC Telemed has confirmed receipt of a request for visit. This document confirms receipt of the order initiating the consult. To find the results of the consultation, please view the patient's reports for the scanned Telemed Consult.
[2022-08-10] MEDS: APIXABAN 5 MG TABLET PO ×2 (08:38→21:29)
[2022-08-10] MEDS: Famotidine 20 MG Tablet PO (08:38)
--- NOTE | 2022-08-10 10:00 | EKG12_ITS ---
Test Reason : LOW HR Blood Pressure : / mmHG Vent. Rate : 033 BPM Atrial Rate : 033 BPM P-R Int : 168 ms QRS Dur : 118 ms QT Int : 474 ms P-R-T Axes : 046 -71 011 degrees QTc Int : 350 ms Marked sinus bradycardia with Premature supraventricular complexes Left axis deviation Incomplete right bundle branch block Nonspecific T wave abnormality Abnormal ECG Confirmed by JOEL HICKS, JO ANN ([id number]), food editor DAVID CONNOLLY ([id number]) on 08/13/2022 7:37:56 AM Referred By: ABDIRAHMAN Confirmed By:SRIDHAR MALDONADO MD
--- NOTE | 2022-08-10 14:47 | NURSING ---
assuming care for this pt at this time
--- NOTE | 2022-08-10 15:11 | CASEMGMT ---
Addendum entered by Blanca Salamanca 08/10/22 16:42: Patient's daughter provided SW with original Advanced Directives for SW to copy. SW made 2 copies per patient's request and returned original to patient. SW placed additional copy on patient's chart. MILTON Pierre Original Note: Social Work Note SW reviewed patient's chart and is not positive for stroke, PHQ9 not completed at this time. SW met with patient and patient's daughter and introduced herself and role as [facility] Software Team Leader. Patient in agreement to speak to SW with daughter present. SW inquired about patient's interest in completing AD. Patient reports she and her daughter completed the forms and a notary was going to [facility] after 3pm to assist with completing. Patient's daughter explained they planned on scheduling an appointment with social work associate, however, another family member provided them with contact information for a notary so they decided to use that individual. SW encouraged patient to inform the RN so a copy can be placed on the chart as well as request copies. Patient and patient's daughter report understanding, no other needs voiced. MILTON Pierre
[2022-08-10] MEDS: MELATONIN 3 MG TABLET PO (21:29)
[2022-08-11 03:20] VITALS: BP 141/62; PULSE 58; RESP 16; TEMP 36.6; O2SAT 96
[2022-08-11] MEDS: Acetaminophen 325 MG Tablet 650 MG PO (06:07)
[2022-08-11] MEDS: Sucralfate 1 GM Tablet PO (06:07)
[2022-08-11 09:20] VITALS: BP 159/65; PULSE 63; RESP 16; TEMP 36.6; O2SAT 96
[2022-08-11] MEDS: Aspirin 81 MG TAB.CHEW PO (09:54)
[2022-08-11] MEDS: APIXABAN 5 MG TABLET PO (09:54)
[2022-08-11] MEDS: Famotidine 20 MG Tablet PO (09:54)
--- NOTE | 2022-08-11 10:27 | PCM.DC ---
Discharge Instructions Diet Discharge Diet: No restrictions Activity Discharge Activity: Return to Normal Activity Return to work on:: 08/11/22 (Patient was admitted from 08/08-08/11/2022. She may return to work with no restrictions. ) Dressing / Incision Call your doctor if you observe: Shortness of breath, Increased palpitations (irregular heartbeat) and - (unilateral weakness) Follow Up Care Test Results: Test results from this visit will be discussed in further detail at your follow-up appointment, if applicable. Discharge Plan Admission Admit Date/Time: 08/08/22 18:03 Primary Reason for Your Visit: CVA Attending Provider: Farhad Hall Primary Care Provider: Minerva Manley Discharge Orders/Prescriptions Prescriptions: Continued melatonin 3 mg capsule 3 mg PO HS calcium carbonate 500 mg calcium (1,250 mg) tablet 500 mg PO DAILY sucralfate 1 gram tablet 1 g PO QACHS cyclobenzaprine 10 mg tablet 10 mg PO HS PRN (Reason: muscle spasm) famotidine 20 mg tablet 20 mg PO BID Label Comments: Take 1 tablet by mouthUtwice daily. multivitamin with folic acid 1 TABLET tablet 1 tab PO DAILY Label Comments: VITAMIN furosemide 40 mg tablet 40 mg PO DAILY Qty: 90 3RF apixaban 5 mg tablet 5 mg PO BID Qty: 180 3RF valsartan 40 mg tablet 40 mg PO DAILY Hold Instructions: Low blood pressure potassium chloride 20 mEq tablet,ER particles/crystals 20 meq PO DAILY Qty: 180 3RF Discontinued metoprolol succinate 50 mg tablet extended release 24 hr 100 mg PO BID Qty: 30 6RF Referrals / Follow Up: [facility] [Provider Group] - Within 1 Month [facility] [Provider Group] - Within 2 Weeks Minerva Manley MD [Primary Care Provider] - Within 1 Week Disposition Disposition (needs filled in before D/C Order can be placed): Home, Self Care
--- NOTE | 2022-08-11 10:34 | DS.PCM_ITS ---
Providers Date of Admission: 08/08/22 Primary Care Physician: Dr. Minerva Manley MD Reason For Visit: CVA Diagnosis Discharge Diagnosis (1) Left-sided weakness: Status: Acute Code(s): R53.1 - Weakness Plan: MRI brain negative MRA brain shos 2mm aneurysm left internal carotid artery MRI c-spine unremarkable for any acute process. Concerning that pt did indeed have a CVA given symptomatology. SOC teleneurology consulted. He did not appreciate any left facial droop nor upper extremity weakness (which are improved), but when he spoke to me that she indeed have these early, he seem dismissive of these concerns and would not say that she had a CVA (I even reminded him that she has afib). I feel the neurolo gist was anchored on the LLE and not open to discussing other possibilities given her known risk factors. Pt to follow up with neurology. Defer NCT/EMG, T and L spine MRIs as outpt unless new Sx arise. Pt does not want to take ASA nor statin, the latter, particularly since her lipid panel was unremarkable. (2) Bradycardia, sinus, persistent, severe: Status: Acute Code(s): R00.1 - Bradycardia, unspecified Plan: Improved, but ongoing. Patient was supposed to be taking metoprolol succinate 50 twice a day but was taking 100 twice a day in addition to flecainide. Previously discussed with Dr. Ibarra, who recommends holding the metoprolol succinate and flecainide for now and then to resume it, assuming her heart rate is better, add metoprolol succinate 50 twice daily and flecainide 100 twice daily. Though the patient later stated that she took metoprolol succinate 50 BID, not 100 on JUL. So, will decrease to 50 daily when appropriate. Flecanide had been ordered, but not given given low heart rate. Continue to hold metoprolol succinate and flecanide. DW Dr. Lynne on 08/11. Explained that she is sinus ria for the past serveral days despite holding flecanide and metopon. He is ok with holding these medications. Patient to follow up with cardiology. She has a heart rate monitor on her watch and if it sustaining fast, she is advized to call. Plan Other chronic conditions * Paroxysmal atrial fibrillation: Flecainide metoprolol being held for now. Continue with apixaban * Hypertension: Fair control at this time. We will hold off on the furosemide for now VTE prophylaxis: Not indicated as patient is already anticoagulated. Disposition: To be determined. pending HR as still bradycardic. Medications at Discharge Home Medications multivitamin with folic acid 400 mcg tablet 1 tab PO DAILY supplement 03/15/13 melatonin 3 mg capsule 3 mg PO HS Check with primary doctor 01/19/21 calcium carbonate 500 mg calcium (1,250 mg) tablet 500 mg PO DAILY Check with primary doctor 06/25/21 furosemide 40 mg tablet 40 mg PO DAILY #90 tabs 08/31/21 sucralfate 1 gram tablet 1 g PO QACHS Check with primary doctor 05/07/22 apixaban 5 mg tablet 5 mg PO BID #180 tabs 06/14/22 valsartan 40 mg tablet 40 mg PO DAILY pt only taking 1/2 pill, ord by Dr. Manley 07/11/22 cyclobenzaprine 10 mg tablet 10 mg PO HS PRN muscle spasm 07/25/22 famotidine 20 mg tablet 20 mg PO BID Check with primary doctor 07/25/22 potassium chloride 20 mEq tablet,extended release(part/cryst) 20 meq PO DAILY #180 tabs 07/25/22 Hospital Course Operations None Procedures 2-D Echocardiogram Summary of Care Provided Minutes Spent on Discharge: 32 Physical Exam Const alert and no apparent distress Neuro Neuro Narrative: abnormal gait due to leg-length disparity. Stable ambulation. Motor Exam: strength 5/5 throughout Weight / BMI Weight Weight: 61.326 kg Body Mass Index (BMI) 25.5 ABG / Lab / Microbiology Data Result Diagrams: 08/08/22 16:20 08/09/22 03:49 D/C Instructions Discharge Diet: No restrictions Return to work on: 08/11/22 (Patient was admitted from 08/08-08/11/2022. She may return to work with no restrictions. ) Call your doctor if you observe: Shortness of breath, Increased palpitations (irregular heartbeat) and - (unilateral weakness) Meaningful Use Info Meaningful Use Diagnoses (Choose all that apply): Ischemic CVA CVA Therapy Assessed for PT,OT and/or ST?: Yes Ischemic Stroke Antithrombotic order at d/c?: No Reason antithrombotic not ordered: Drug Declined by Patient Dx of Atrial fib/flutter?: Yes Anticoagulant at discharge?: Yes Statins at discharge?: No Reason Statin not ordered: Drug Declined by Patient Primary Dx Acute Ischemic CVA?: Yes IV thrombolytic ordered during stay?: No Reason IV thrombolytic not ordered: Procedure not Indicated Discharge Plan Admission Admit Date/Time: 08/08/22 18:03 Primary Reason for Your Visit: CVA Attending Provider: Farhad Hall Primary Care Provider: Minerva Manley Instructions Additional Instructions / Restrictions: Call physician if your heart rate maintains over 100 bpm or if your experiencing symptoms (palpitations, shortness of breath, chest pain) Discharge Orders/Prescriptions Prescriptions: Continued melatonin 3 mg capsule 3 mg PO HS calcium carbonate 500 mg calcium (1,250 mg) tablet 500 mg PO DAILY sucralfate 1 gram tablet 1 g PO QACHS cyclobenzaprine 10 mg tablet 10 mg PO HS PRN (Reason: muscle spasm) famotidine 20 mg tablet 20 mg PO BID Label Comments: Take 1 tablet by mouthUtwice daily. multivitamin with folic acid 1 TABLET tablet 1 tab PO DAILY Label Comments: VITAMIN furosemide 40 mg tablet 40 mg PO DAILY Qty: 90 3RF apixaban 5 mg tablet 5 mg PO BID Qty: 180 3RF valsartan 40 mg tablet 40 mg PO DAILY Hold Instructions: Low blood pressure potassium chloride 20 mEq tablet,ER particles/crystals 20 meq PO DAILY Qty: 180 3RF Discontinued metoprolol succinate 50 mg tablet extended release 24 hr 100 mg PO BID Qty: 30 6RF Referrals / Follow Up: [facility] [Provider Group] - Within 1 Month [facility] [Provider Group] - Within 2 Weeks Minerva Manley MD [Primary Care Provider] - Within 1 Week Disposition Disposition (needs filled in before D/C Order can be placed): Home, Self Care Charges/Coding Visit Charges Inpatient E&M: 62670 Disch Hosp >30min
[2022-08-11 11:41] VITALS: BMI 25.5
== END 2022-08-11 11:51 | disposition home or self-care (01) | DRG 65 ==
LOC: ED 17:23 → PCU 17:54
PROVIDERS: Emergency Provider Emergency Medicine; PCP Internal Medicine
DX: I63.9 Cerebral infarction, unspecified (principal); I50.32 Chronic diastolic (congestive) heart failure; G81.94 Hemiplegia, unspecified affecting left nondominant side; I67.1 Cerebral aneurysm, nonruptured; I11.0 Hypertensive heart disease with heart failure; I48.0 Paroxysmal atrial fibrillation; R00.1 Bradycardia, unspecified; R29.703 NIHSS score 3; R29.810 Facial weakness; Z79.01 Long term (current) use of anticoagulants; Z79.899 Other long term (current) drug therapy; Z87.891 Personal history of nicotine dependence
CPT/HCPCS: 36415; 70450; 70544; 70547; 70551; 71045; 72141; 80048; 80061; 80076; 84484; 85025; 85610; 85730; 92523; 92526; 92610; 93005; 94762; 97110; 97116; 97161; 97166; 97530; 99284; A4216

== ENCOUNTER → 2022-08-27 | Outpatient (CLI) | payer OTHER, MEDICARE, SELFPAY ==
[2022-08-27 12:39] LABS: Anion Gap 3 (5-15); BUN 26 mg/dL (7-18); BUN/Creat Ratio 33.8 RATIO (10-20); Calcium,Total 10.1 mg/dL (8.5-10.1); Chloride 105 mmol/L (98-107); Creatinine, Serum 0.77 mg/dL (0.55-1.02); EST Glomerular Filtration Rate 78 mL/min (>60); Est Glom Filt Rate - Afr Amer 94 mL/min (>60); Glucose 106 mg/dL (74-106); Sodium Level 139 mmol/L (136-145)
[2022-08-27 12:40] LABS: BNP,B-Type NATRIURETIC PEPTIDE 545.4 pg/mL (0-100)
== END | disposition home or self-care (01) ==
LOC: LAB 11:16
PROVIDERS: PCP Internal Medicine; Referring Provider Nurse Practitioner Gerontology; Visit Provider Nurse Practitioner Gerontology
DX: R06.02 Shortness of breath (principal); R60.0 Localized edema
CPT/HCPCS: 36415; 80048; 83880

== ENCOUNTER 2022-11-25 15:00 | Outpatient (RCR) | payer OTHER, MEDICARE, SELFPAY ==
--- NOTE | 2022-09-17 12:02 | HP.PTEVAL_ITS ---
Patient's Visit Information SHERRELL DELGADO is a 77 year old F referred to Physical Therapy by Dr. Perlita Bales MD with a diagnosis of L Le weakness and gait instability. Date of Evaluation: 09/17/22 Physical Therapist: Yeyo Wooten, PT, ATC - Visit Plan Frequency: 2-3x /Week Duration: 4-6 Weeks Plan: B LE strengthening, balance and proprio, core strengthening, gait training, nustep, and HEP - Subjective Pt reports she had a TIA 08/06/22 and has had difficulty with balance since that time. Pt notes she tends to either run into the whaley at home, or tends to lose her balance moving forward for no reason. Pt reports she has only had one fall during that time span. Pt reports she can feel her feet hit the ground, but notes she has had numbness in L lateral foot since having her TIA. Pt denies any prior Hx of CVA's or TIA's. Pt reports she is very weak at this time and has severe difficulty with performing duties around her home. Pt reports she has scoliosis and torn rotator cuffs, and notes she is in pain all the time. Pt reports she has stairs at home that she has to negotiate in order to do her laundry. Pt notes she negotiates them one step at a time. - Objective Neuro: L LE is hyposensitive to light touch throughout. R LE is WNL to light touch. B patellar reflex= 2/3. MMT: B LE's are grossly rated at 4-/5 throughout. FGA: 1330- indicates a moderate risk of falling. Gait: Pt is able to ambulate 500 feet until needing to rest secondary to fatigue and L LE weakness and numbness - Balance/Special Test Scores Functional Gait Assessment Score: 13 % Disability: 56.6700 Lower Extremity Functional Score: 42 - Goals Goal 1:: Increase B LE strength x 1 grade to aid with stair negotiation Goal Time Frame: 4-6 Weeks Goal 2:: Increase FGA scale x 5 points to aid with preventing future falls Goal Time Frame: 4-6 Weeks Goal 3:: I with HEP Goal Time Frame: 4-6 Weeks - Rehabilitation Potential Physical Therapy Diagnosis: Pt has L LE weakness, unstable gait, and a Hx of falls secondary to B LE weakness Rehabilitation Potential: Good - Anticipated Interventions Patient/Client Instruction: Educate patient on: Condition, Plan of Care For the Purpose of:: To improve self management Therapeutic Exercise to Include: Strength training, Endurance training, Balance training, Gait and locomotor training, Dynamic Lumbar Stabilization For the Purpose of:: To improve muscle performance and motor function, To increase tolerance to activity/condition/position, To improve ability of physical actions for home/community/work/leisure Thank you for the opportunity to evaluate your patient. For Medicare and Medicare HMO plans, please review the plan of care and approve it. It will need to be FAXED BACK to us at [phone] for Medicare purposes. For Medicare only, by signing this I certify the plan of care. Please let me know if there are questions or concerns regarding this plan of care. Physician Signature: Date:
--- NOTE | 2022-11-25 15:42 | HP.PTDCSUM ---
Discharge Summary D/C summary: It has been my pleasure to treat SHERRELL DELGADO referred by Dr. Perlita Bales MD, with the diagnosis of L Le weakness and gait instability for a total of 17 visit(s). Discharge Date: Please see the following information for a summary of their discharge status. Subjective Subjective: My LBP was bad yesterday Pain LB: Pain Intensity (Out of 10): 2 Overall Improvement % Improvement: 70 Objective Objective/Function: MMT: B LE's are grossly 4+/5 to 5/5 throughout FGA: Pt is I with HEP Rx goals achieved Goals Goal 1:: Increase B LE strength x 1 grade to aid with stair negotiation Goal Progress: Progressing Goal 2:: Increase FGA scale x 5 points to aid with preventing future falls Goal 3:: I with HEP Plan Plan: Discharge to HEP D/C Information d/c sentence: If there are questions or concerns regarding this patient's physical therapy, please feel free to call me at [phone]. Thank you for the referral of this patient. Sincerely, Yeyo Wooten, PT, ATC Balance/Gait/Functional tests Balance/Special Test Scores Functional Gait Assessment Score: 23 % Disability: 23.3400 Lower Extremity Functional Score: 51 30 Second Chair Rise Test Seconds: 13
== END 2022-11-25 19:00 | disposition home or self-care (01) ==
LOC: PT 15:00
PROVIDERS: PCP Internal Medicine; Referring Provider Psychiatry & Neurology Neurology; Visit Provider Psychiatry & Neurology Neurology
DX: M47.816 Spondylosis without myelopathy or radiculopathy, lumbar region (principal)
CPT/HCPCS: 97110; 97112; 97161; 97164

== ENCOUNTER 2022-12-31 01:20 | Inpatient (IN) | payer OTHER, MEDICARE, SELFPAY ==
[2022-12-31] VITALS (28 sets, daily range): BP systolic 104–200; BP diastolic 47–130; PULSE 51–68; RESP 12–30; TEMP 35.9–36.8; O2SAT 92–100; BMI 28.3; BMI 26.6
--- NOTE | 2022-12-31 01:25 | RAD_ITS ---
EXAM: XR CHEST, 1 VIEW CLINICAL INDICATION: sob sob TECHNIQUE: Frontal view of the chest. COMPARISON: Chest x-ray 08/08/2022 and 07/12/2022. FINDINGS: LUNGS AND PLEURAL SPACES: There is increased interstitial prominence compared to the previous exams which may represent an inflammatory or infectious process. CHF is thought to be less likely but is not excluded. No pneumothorax. No effusion. HEART: The heart is borderline in size. MEDIASTINUM: Central airways and mediastinal contour are unremarkable. BONES/JOINTS: There are multilevel degenerative changes in the visualized spine. SOFT TISSUES: Unremarkable. RAD/Chest 1 View (Portable) IMPRESSION: Increased interstitial prominence may represent an inflammatory or infectious process. CHF is thought to be less likely but is not excluded. No demonstrated focal pulmonary consolidation. Electronically Signed: Jimbo Pop MD at 2:45 EDT Reading Location ID and State: [facility] / [place] , Service support ,
--- NOTE | 2022-12-31 01:25 | EKG12_ITS ---
Test Reason : DJ Blood Pressure : / mmHG Vent. Rate : 058 BPM Atrial Rate : 058 BPM P-R Int : 206 ms QRS Dur : 110 ms QT Int : 484 ms P-R-T Axes : 067 -41 044 degrees QTc Int : 475 ms Sinus bradycardia with sinus arrhythmia Left axis deviation Abnormal ECG When compared with ECG of 31-DEC-2022 01:33, MANUAL COMPARISON REQUIRED, DATA IS UNCONFIRMED Confirmed by ROWDY HICKS, SELVIN ([id number]), tape editor JAYNE GALAVIZ ([id number]) on 02/19/2023 10:29:54 AM Referred By: PATI Confirmed By:SELVIN RENO MD
--- NOTE | 2022-12-31 01:26 | ED.VIS.DYS ---
HPI History of Present Illness Chief Complaint: Shortness of Breath Informant: patient and EMS Narrative Narrative: 77-year-old female started getting short of breath yesterday but became much worse tonight, was 80% on room air according to EMS who put her on CPAP, patient states that did start to help some. She is not on home oxygen. She does not have any history of lung disease but she does have a history of congestive heart failure. She states she has been compliant with her medications without any significant changes lately except for adding iron, and when she takes her diuretic it does still make her urinate well. Denies any chest discomfort, cough, fevers or chills, syncope. She does have new swelling in her legs. [facility] Medical History Abnormal bruising Acute cholecystitis Acute stroke due to ischemia Arthritis Atrial fibrillation Atrial fibrillation with RVR (10/31/18) Moses's esophagus Calculus of kidney Cancer Cardiomyopathy in other diseases classified elsewhere Carpal tunnel syndrome Chest pain Chronic diastolic (congestive) heart failure Chronic neck and back pain Diarrhea Difficulty balancing when standing GERD (gastroesophageal reflux disease) Heart disease History of DVT (deep vein thrombosis) Hypertension penitentiary (current) use of anticoagulants Non-rheumatic tricuspid valve insufficiency Nonrheumatic aortic valve stenosis Panlobular emphysema Paroxysmal atrial fibrillation Rotator cuff tear Scoliosis of cervical spine Shoulder pain SOB (shortness of breath) Tendonitis of shoulder, right Tubular adenoma of colon URI (upper respiratory infection) Home Medications multivitamin with folic acid 400 mcg tablet 1 tab PO DAILY supplement 03/15/13 [History Last Taken 10/31/18 07:00] melatonin 3 mg capsule 3 mg PO HS Check with primary doctor 01/19/21 [History Last Taken Unknown] calcium carbonate 500 mg calcium (1,250 mg) tablet 500 mg PO DAILY Check with primary doctor 06/25/21 [History Last Taken Unknown] apixaban 5 mg tablet 5 mg PO BID #180 tabs 06/14/22 [Rx Last Taken 08/05/22] cyclobenzaprine 10 mg tablet 10 mg PO HS PRN muscle spasm 07/25/22 [History Last Taken Unknown] famotidine 20 mg tablet 20 mg PO BID Check with primary doctor 07/25/22 [History Last Taken Unknown] potassium chloride 20 mEq tablet,extended release(part/cryst) 20 meq PO DAILY #180 tabs 07/25/22 [Rx Last Taken Unknown] flecainide 100 mg tablet 100 mg PO Q12H 08/27/22 [History Last Taken Unknown] furosemide 40 mg tablet 40 mg PO DAILY #90 tabs 09/26/22 [Rx Last Taken Unknown] metoprolol succinate 50 mg tablet,extended release 24 hr 50 mg PO BID #60 tabs 10/03/22 [Rx Last Taken Unknown] valsartan 40 mg tablet 20 mg PO DAILY 10/03/22 [History Last Taken Unknown] fidaxomicin 200 mg tablet (Dificid) 200 mg PO Q12H 12/31/22 [History Last Taken Unknown] sucralfate 100 mg/mL oral suspension 10 ml PO ACHS 12/31/22 [History Last Taken Unknown] Allergy/AdvReac Type Severity Reaction Status Date / Time etodolac Allergy Intermediate Other Verified 12/31/22 01:21 diltiazem HCl [From Cardizem] Allergy Swelling Verified 12/31/22 01:21 of face and neck naproxen Allergy Swelling Verified 12/31/22 01:21 (whole body) prednisone Allergy Other Verified 12/31/22 01:21 amiodarone AdvReac Severe Severe Verified 12/31/22 01:21 dyspnea after taking PO Amiodarone adhesive AdvReac Rash Verified 12/31/22 01:21 albuterol AdvReac Other Verified 12/31/22 01:21 codeine AdvReac Vomiting Verified 12/31/22 01:21 hydrocodone bitartrate AdvReac Vomiting Verified 12/31/22 01:21 [From Vicodin] morphine AdvReac Vomiting Verified 12/31/22 01:21 Family History Sister Afib Father CAD (coronary artery disease) Brother CVA (cerebral vascular accident) Mother No problems noted. Sister No problems noted. Brother Wilsons disease Brother Wilsons disease Surgical History H/O hernia repair H/O neck surgery History of cardioversion (11/23/18) History of left heart catheterization (03/15/13) History of radiofrequency ablation procedure for cardiac arrhythmia (07/27/15) Hx of cholecystectomy Hx of fusion of cervical spine ovarian surgery Social History Smoking Status: Former smoker alcohol intake: never substance use type: does not use caffeine: Yes Type: coffee Number of servings: 1 what type of physical activity do you participate in: walking frequency: daily seatbelt use: always do you feel safe at home: Yes ROS ROS ED Review of Systems ROS Unobtainable: other Details: Limited ROS due to acuity/dyspnea Constitutional Constitutional ED: Reports fatigue; Denies chills or fever(s) Cardiovascular Cardiovascular: Reports leg edema; Denies chest pain or palpitations Respiratory/Chest Respiratory/Chest: Reports dyspnea; Denies cough Gastrointestinal Gastrointestinal: Denies abdominal pain or vomiting EXAM Physical Exam Const Vital Signs: 12/31/22 01:21 12/31/22 01:21 12/31/22 01:28 Temperature 96.6 F L Temperature Source Temporal Pulse Rate 68 Respiratory Rate 20 H Respiratory Effort Short of Breath Nasal Flaring Respiratory Depth Deep Respiratory Pattern Tachypnea Blood Pressure 200/130 H Blood Pressure Mean 153 Pulse Ox 96 Oxygen Delivery Method Bi-pap Bi-pap Fraction of Inspired Oxygen (FIO2) 12/31/22 01:36 12/31/22 01:26 12/31/22 01:59 Temperature Temperature Source Pulse Rate 61 61 Respiratory Rate 27 H 28 H 21 H Respiratory Effort Respiratory Depth Respiratory Pattern Blood Pressure 123/98 H Blood Pressure Mean 106 Pulse Ox 97 97 98 Oxygen Delivery Method Bi-pap Fraction of Inspired Oxygen (FIO2) 45 12/31/22 02:00 Temperature Temperature Source Pulse Rate 62 Respiratory Rate 26 H Respiratory Effort Respiratory Depth Respiratory Pattern Blood Pressure 180/79 H Blood Pressure Mean 104 Pulse Ox 96 Oxygen Delivery Method Bi-pap Fraction of Inspired Oxygen (FIO2) Positive well nourished and well developed Constitutional Narrative: Acute respiratory distress General Appearance ED: well developed HEENT Reports moist mucous membranes normocephalic and atraumatic Eyes PERRL and EOMs intact bilaterally Neck full ROM and supple Neck Narrative: Positive JVD Resp Resp Narrative: Respiratory distress speaking in 1-2 word sentences. Diffuse expiratory Rales. Breath sounds are equal bilaterally. Cardio regular rate and regular rhythm Rate: Negative for tachycardic GI non-tender and non-distended Auscultation: normoactive bowel sounds Palpation: soft Back/Spine no CVA tenderness General Back: other FROM Extremity normal to inspection General Extremety ED: Yes edema; Negative for pulses abnormal or tenderness General Extremity: edema bilateral lower extremity Details: moderate; Negative for pulses abnormal Neuro oriented x3, CN's II-XII intact bilaterally and no sensory deficits noted Sensorium / Orientation: awake and alert Motor Exam: strength 5/5 throughout Skin no rashes or lesions noted and no wounds MDM MDM MDM Narrative Medical decision making narrative: Suspect acute decompensated congestive heart failure. Continued BiPAP, oxygen, and gave the patient Lasix 40 mg. Initial blood pressure reading 200/130 so nitroglycerin ordered as well, but nursing is saying now her systolic is only 124 so I am holding the nitroglycerin. On reevaluation, she is breathing much better and doing well on BiPAP, which we will continue in the hospital. Mild GALINA, leukocytosis likely due to the stress, I do not think she has pneumonia. BNP elevated, troponin within normal limits EKG does not show any acute injury pattern. History & Record Review Additional record(s) reviewed:: Prior outpatient record (Echo 08/06/2022 with EF 55%, stage III diastolic dysfunction) Lab Data Attestation: I reviewed the patient's lab results. Labs: Laboratory Results - last 24 hr 12/31/22 01:17 WBC 16.3 H RBC 4.10 L Hgb 12.4 Hct 38.3 MCV 93.4 MCH 30.2 MCHC 32.4 RDW Std Deviation 43.9 RDW Coeff of Elvie 12.9 Plt Count 335 MPV 10.2 Immature Gran % (Auto) 0.500 Neut % (Auto) 71.3 H Lymph % (Auto) 20.8 Blanco % (Auto) 6.4 Eos % (Auto) 0.7 Baso % (Auto) 0.3 Absolute Neuts (auto) 11.7 H Absolute Lymphs (auto) 3.39 Nucleated RBC % 0 Sodium 142 Potassium 4.5 Chloride 107 Carbon Dioxide 29.0 Anion Gap 6 BUN 36 H Creatinine 1.29 H Estim Creat Clear Calc 28.43 Est GFR (MDRD) Af Amer 52 L Est GFR (MDRD) Non-Af 43 L BUN/Creatinine Ratio 27.9 H Glucose 148 H Calcium 9.5 Troponin I High Sens 6 B-Natriuretic Peptide 394.7 H ABG Data ABG results: ABG 12/31/22 01:52 Specimen Type ART Sample Site R Brach pH 7.38 Bicarbonate Actual 26.2 H Total CO2 28 Base Excess 1 O2 Saturation 96 O2 % 45 ABG pCO2 44.6 ABG pO2 84 Terrence Test Positive Respiration Rate 12 O2 Delivery Device BiPAP POC PEEP 8 Clinical Comments BIPAP 14/8 R12 45% Radiography Chest X-Ray - ED: 1 View, Read by ED Physician and CHF Rhythm Strip Rhythm Strip: Sinus Rhythm Rate: 63 Ectopy: None EKG Initial EKG: Attestation: I personally reviewed and interpreted this EKG as follows: Interpretation: Sinus Rhythm, No Acute Injury Pattern and LAFB Prior EKG tracings: available for review Prior: Unchanged Management Discussion w/another healthcare provider: Hospitalist Critical Care Time Critical Care Time: Yes Critical care time (excluding procedures): 30-74 minutes (36 min), Including time spent:, Discussing w/Patient &/or Family/Programmer Developer, Discussing w/Consultants, Arranging Admission or Transfer and Performing Direct Patient Care at Bedside Discharge Plan Triage Chief Complaint: Shortness of Breath ED Provider: Sohan Shelton Dx/Rx/DC Orders Clinical Impression: GALINA (acute kidney injury), Acute respiratory failure with hypoxia, Acute exacerbation of CHF (congestive heart failure) Prescriptions: No Action melatonin 3 mg capsule 3 mg PO HS calcium carbonate 500 mg calcium (1,250 mg) tablet 500 mg PO DAILY cyclobenzaprine 10 mg tablet 10 mg PO HS PRN (Reason: muscle spasm) famotidine 20 mg tablet 20 mg PO BID Patient Comments: Take 1 tablet by mouthUtwice daily. flecainide 100 mg tablet 100 mg PO Q12H valsartan 40 mg tablet 20 mg PO DAILY metoprolol succinate 50 mg tablet extended release 24 hr 50 mg PO BID Qty: 60 11RF multivitamin with folic acid 1 TABLET tablet 1 tab PO DAILY Patient Comments: VITAMIN Dificid 200 mg tablet 200 mg PO Q12H sucralfate 100 mg/mL suspension 10 ml PO ACHS Patient Comments: Take 10 mL by mouthEbefore meals and at bedtime. (560cc=2wks) apixaban 5 mg tablet 5 mg PO BID Qty: 180 3RF potassium chloride 20 mEq tablet,ER particles/crystals 20 meq PO DAILY Qty: 180 3RF furosemide 40 mg tablet 40 mg PO DAILY Qty: 90 3RF Primary Care Provider: Minerva Manley Referrals: Minerva Manley MD [Primary Care Provider] - Disposition Disposition: Acute Care Hospital [facility]
[2022-12-31] MEDS: Furosemide 40 MG/4 ML Vial IV ×4 (01:30→20:34)
[2022-12-31 01:38] LABS: Absolute Lymphocyte Count 3.39 X10^3/uL (0.83-4.51); Absolute Neutrophil Count 11.7 X10^3/uL (2.0-7.7); Basophil# 0.05 X10^3/uL; Basophil% 0.3 % (0-1); Eosinophil# 0.12 X10^3/uL; Eosinophils% 0.7 % (0-5); Hematocrit 38.3 % (37-47); Hemoglobin 12.4 g/dL (12.0-15.0); Lymphocyte # 3.39 X10^3/ul (0.83-4.51); Lymphocyte % 20.8 % (19-41); Mean Corp Hgb Conc 32.4 g/dL (32-36); Mean Corpuscular Hgb 30.2 pg (27.0-32.0); Mean Corpuscular Volume 93.4 fL (81-99); Mean Platelet Vol. 10.2 fl (6.2-12.0); Monocyte# 1.04 X10^3/uL; Monocyte% 6.4 % (0-10); NRBC Flagged by Analyzer 0 % (0-5); Neutrophil # 11.65 X10^3/uL (2.7-7.7); Neutrophil % 71.3 % (47-70); Platelet Count 335 K/mm3 (150-450); RBC Distribution Width CV 12.9 % (11.6-14.6); RBC Distribution Width SD 43.9 fl (35.1-43.9); White Blood Count 16.3 K/mm3 (4.4-11.0)
[2022-12-31 01:55] LABS: Allen Test Positive; Base Excess 1 mmol/L (-2 to +2); Bicarbonate 26.2 mmol/L (22-26); Blood Gas Specimen Type ART; FI02 45; O2 Delivery Device BiPAP; PEEP 8; PO2 84 mmHG (75-100); RR 12; SITE R Brach; SO2 96 % (95-99); Total Carbon Dioxide 28 mmol/L; pCO2 44.6 mmHg (35-45); pH 7.38 (7.35-7.45)
[2022-12-31 01:55] LABS: BNP,B-Type NATRIURETIC PEPTIDE 394.7 pg/mL (0-100)
[2022-12-31 01:56] LABS: Anion Gap 6 (5-15); BUN 36 mg/dL (7-18); BUN/Creat Ratio 27.9 RATIO (10-20); Calcium,Total 9.5 mg/dL (8.5-10.1); Chloride 107 mmol/L (98-107); Creatinine, Serum 1.29 mg/dL (0.55-1.02); EST Glomerular Filtration Rate 43 mL/min (>60); Est Glom Filt Rate - Afr Amer 52 mL/min (>60); Estimated Creatinine Clearance 28.43 ml/min; Glucose 148 mg/dL (74-106); Potassium 4.5 mmol/L (3.5-5.1); Sodium Level 142 mmol/L (136-145); Troponin-I HS 6 pg/mL (3.0-54.0)
--- NOTE | 2022-12-31 02:28 | PCM.HP.STD ---
HPI - General General Date of Admission: 12/31/22 Date of Service: 12/31/22 Chief Complaint: Shortness of breath HPI Narrative SHERRELL DELGADO, is a 77 F who presented to the emergency department at [facility] with a chief complaint of shortness of breath. Dated she started having shortness of breath yesterday and today her shortness of breath worsened. She tried to go to bed but could not lie flat so she called the squad. Oxygen saturations were 80% on room air at the time of their arrival. She has started some coughing today this evening that is nonproductive. She reports she has had low-grade temperatures at home but has been afebrile since presentation here. She has had no sick contacts, no chills, no headache, no rhinorrhea, no chest pain, no nausea or vomiting, no diarrhea. She does admit to having C. difficile for which she is taking Dificid but denies any current diarrhea at this time. She denies ever utilizing oxygen at home. She does admit to worsening lower extremity swelling for which she double up her Lasix last week. She states this initially helped some but since has not been helpful. She states she does not salt her food or eat out much. She does not watch her fluid intake. She admits to weight gain of 15 pounds since July when she had her stroke. She was unable to tell me if she has had any acute weight gain in the last week or so. Vital signs on presentation showed temperature of 96.6, heart rate was 68, blood pressure was 200/130 with a repeat at 180/79, respiratory rate has been anywhere from 20-28 and oxygen saturations on presentation here were 96% on BiPAP. In the field they were 80% on room air. Her CBC did show a white count of 16.3 with a mild left shift that is 71.3% neutrophilia. Her blood gas showed a normal pH at 7.38/PCO2 44.6/PO2 was 84 on BiPAP at 45% FiO2. Her chemistry panel showed an elevated BUN at 36 and creatinine elevation at 1.29 above her baseline of 0.7-0.95. Most recently her serum creatinine was 0.77 on 08/27/2022. Her glucose was 148. Troponin was 6. BNP was 394.7. Chest x-ray demonstrated increased interstitial prominence that was felt to be inflammatory infectious process. CHF was considered however felt to be less likely. No focal consolidation was identified. EKG showed normal sinus rhythm with out QTc prolongation, normal NC interval, and no ST/T wave changes concerning for acute ischemia. 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 Non-rheumatic tricuspid valve insufficiency Nonrheumatic aortic valve stenosis Panlobular emphysema Paroxysmal atrial fibrillation Rotator cuff tear Scoliosis of cervical spine Shoulder pain SOB (shortness of breath) Tendonitis of shoulder, right Tubular adenoma of colon URI (upper respiratory infection) Home Medications multivitamin with folic acid 400 mcg tablet 1 tab PO DAILY supplement 03/15/13 [History Last Taken 10/31/18 07:00] melatonin 3 mg capsule 3 mg PO HS Check with primary doctor 01/19/21 [History Last Taken Unknown] calcium carbonate 500 mg calcium (1,250 mg) tablet 500 mg PO DAILY Check with primary doctor 06/25/21 [History Last Taken Unknown] apixaban 5 mg tablet 5 mg PO BID #180 tabs 06/14/22 [Rx Last Taken 08/05/22] cyclobenzaprine 10 mg tablet 10 mg PO HS PRN muscle spasm 07/25/22 [History Last Taken Unknown] famotidine 20 mg tablet 20 mg PO BID Check with primary doctor 07/25/22 [History Last Taken Unknown] potassium chloride 20 mEq tablet,extended release(part/cryst) 20 meq PO DAILY #180 tabs 07/25/22 [Rx Last Taken Unknown] flecainide 100 mg tablet 100 mg PO Q12H 08/27/22 [History Last Taken Unknown] furosemide 40 mg tablet 40 mg PO DAILY #90 tabs 09/26/22 [Rx Last Taken Unknown] metoprolol succinate 50 mg tablet,extended release 24 hr 50 mg PO BID #60 tabs 10/03/22 [Rx Last Taken Unknown] valsartan 40 mg tablet 20 mg PO DAILY 05/25/23 [History Last Taken Unknown] fidaxomicin 200 mg tablet (Dificid) 200 mg PO Q12H 12/31/22 [History Last Taken Unknown] sucralfate 100 mg/mL oral suspension 10 ml PO ACHS 12/31/22 [History Last Taken Unknown] Allergy/AdvReac Type Severity Reaction Status Date / Time etodolac Allergy Intermediate Other Verified 12/31/22 01:21 diltiazem HCl [From Cardizem] Allergy Swelling Verified 12/31/22 01:21 of face and neck naproxen Allergy Swelling Verified 12/31/22 01:21 (whole body) prednisone Allergy Other Verified 12/31/22 01:21 amiodarone AdvReac Severe Severe Verified 12/31/22 01:21 dyspnea after taking PO Amiodarone adhesive AdvReac Rash Verified 12/31/22 01:21 albuterol AdvReac Other Verified 12/31/22 01:21 codeine AdvReac Vomiting Verified 12/31/22 01:21 hydrocodone bitartrate AdvReac Vomiting Verified 12/31/22 01:21 [From Vicodin] morphine AdvReac Vomiting Verified 12/31/22 01:21 Family History Sister Afib Father CAD (coronary artery disease) Brother CVA (cerebral vascular accident) Mother No problems noted. Sister No problems noted. Brother Wilsons disease Brother Wilsons disease Surgical History H/O hernia repair H/O neck surgery History of cardioversion (11/23/18) History of left heart catheterization (03/15/13) History of radiofrequency ablation procedure for cardiac arrhythmia (07/27/15) Hx of cholecystectomy Hx of fusion of cervical spine ovarian surgery Social History Smoking Status: Former smoker alcohol intake: never substance use type: does not use caffeine: Yes Type: coffee Number of servings: 1 what type of physical activity do you participate in: walking frequency: daily seatbelt use: always do you feel safe at home: Yes ROS Constitutional Constitutional: Reports change in weight and fever(s); Denies anorexia, chills, fatigue, malaise, night sweats, weakness or other Eyes Eyes: Denies blurry vision, change in eye color, change in vision, discharge from eye(s), double vision, erythema, eye pain, loss of vision or other ENT HEENT: Denies abnormal hearing, dysphagia, ear pain, epistaxis, headache(s), hearing loss, nasal congestion, nasal discharge, post nasal drip, sinus pressure, sore throat or other Cardiovascular Cardiovascular: Reports dyspnea on exertion, edema, orthopnea and paroxysmal nocturnal dyspnea; Denies chest pain, claudication, lightheadedness, palpitations, rapid heart rate, syncope or other Respiratory/Chest Respiratory/Chest: Reports cough, dyspnea, shortness of breath at rest and shortness of breath with exertion; Denies excessive phlegm production, hemoptysis, productive cough, wheezing or other Gastrointestinal Gastrointestinal: Denies abdominal pain, coffee ground emesis, constipation, diarrhea, dyspepsia, hematemesis, hematochezia, loose stools, melena, nausea, vomiting or other Genitourinary Genitourinary: Denies burning urination, difficulty urinating, dysuria, hematuria, nocturia, urinary frequency, urinary hesitancy, urinary incontinence, urinary urgency or other Musculoskeletal Musculoskeletal: Reports back pain; Denies arthralgias, joint pain, joint stiffness, joint swelling, myalgias, neck pain or other Neurologic Neurologic: Denies abnormal gait, abnormal speech, confusion, disequilibrium, dizziness, focal weakness, headache(s), numbness, paresthesias, seizure-like activity, seizures, syncope, tingling, tremor(s) or other Psychiatric Psychiatric: Denies anxiety, depression, homicidal ideation, suicidal ideation or other Endocrine Endocrinology: Denies change in body appearance, cold intolerance, excessive sweating, heat intolerance, polydipsia, polyuria or other Hematologic/Lymphatic Hematologic/Lymphatic: Denies anemia, easy bleeding, easy bruising, lymphadenopathy or other Allergic/Immunologic Allergic/Immunologic: Denies rhinitis, hives, eczemia, asthma or other Vital Signs Vital Signs Vital Signs: 12/31/22 01:21 12/31/22 01:21 12/31/22 01:28 Temperature 96.6 F L Temperature Source Temporal Pulse Rate 68 Respiratory Rate 20 H Respiratory Effort Short of Breath Nasal Flaring Respiratory Depth Deep Respiratory Pattern Tachypnea Blood Pressure 200/130 H Blood Pressure Mean 153 Pulse Ox 96 Oxygen Delivery Method Bi-pap Bi-pap Fraction of Inspired Oxygen (FIO2) 12/31/22 01:36 12/31/22 01:26 12/31/22 01:59 Temperature Temperature Source Pulse Rate 61 61 Respiratory Rate 27 H 28 H 21 H Respiratory Effort Respiratory Depth Respiratory Pattern Blood Pressure 123/98 H Blood Pressure Mean 106 Pulse Ox 97 97 98 Oxygen Delivery Method Bi-pap Fraction of Inspired Oxygen (FIO2) 45 12/31/22 02:00 12/31/22 02:10 12/31/22 02:15 Temperature Temperature Source Pulse Rate 62 62 55 L Respiratory Rate 26 H 22 H 24 H Respiratory Effort Respiratory Depth Respiratory Pattern Blood Pressure 180/79 H 171/92 H Blood Pressure Mean 104 117 Pulse Ox 96 98 97 Oxygen Delivery Method Bi-pap Bi-pap Fraction of Inspired Oxygen (FIO2) 12/31/22 02:20 Temperature Temperature Source Pulse Rate 56 L Respiratory Rate 20 H Respiratory Effort Respiratory Depth Respiratory Pattern Blood Pressure Blood Pressure Mean Pulse Ox 98 Oxygen Delivery Method Fraction of Inspired Oxygen (FIO2) Weight Weight: 68 kg Body Mass Index (BMI) 28.3 Physical Exam Const alert, oriented x3, no apparent distress and well nourished Constitutional Narrative: Older, white female, sitting up in bed currently on BiPAP, mentating well, interacts appropriately and able to converse despite being on BiPAP, nontoxic-appearing General Appearance: cooperative HEENT normocephalic, head/scalp atraumatic and hearing grossly normal bilaterally HEENT Narrative: Mallampati 2, no thrush mucous membranes are dry due to BiPAP Eyes PERRL, EOMs intact bilaterally and conjunctivae normal Eyes Narrative: No scleral icterus Neck no lymphadenopathy and supple Neck Narrative: Positive JVD, no carotid bruits bilaterally, trachea midline, no thyroid large, well-healed right-sided carotid endarterectomy scar Resp no retractions and no use of accessory muscles Resp Narrative: Diffuse scattered end expiratory wheeze and crackles, tachypnea but no signs of extremis Auscultation: crackles and wheezes; Negative for rhonchi Cardio regular rate, regular rhythm, S1 normal heart sound, S2 normal heart sound, no murmurs, no rub, no gallops and no clicks GI normal to inspection, nondistended, normoactive bowel sounds, soft to palpation and non-tender Extremity Extremity Narrative: 1+ pitting edema to knees bilaterally with no cyanosis or clubbing Skin skin turgor normal, no jaundice, no petechiae and no mottling Neuro oriented x3, CN's II-XII intact bilaterally and moves all extremities Neuro Narrative: Slight weakness that is residual from previous stroke on left side, slight sensory changes on left side from residual stroke Speech: speech normal Psych affect normal Psych Narrative: Eye contact is good, patient interacts normally, very pleasant Results Lab / Micro Data Attestation: I reviewed the patient's lab results. 12/31/22 01:17 12/31/22 01:17 Labs: Laboratory Results - last 24 hr 12/31/22 01:17: WBC 16.3 H, RBC 4.10 L, Hgb 12.4, Hct 38.3, MCV 93.4, MCH 30.2, MCHC 32.4, RDW Std Deviation 43.9, RDW Coeff of Elvie 12.9, Plt Count 335, MPV 10.2, Immature Gran % (Auto) 0.500, Neut % (Auto) 71.3 H, Lymph % (Auto) 20.8, [place] % (Auto) 6.4, Eos % (Auto) 0.7, Baso % (Auto) 0.3, Absolute Neuts (auto) 11.7 H, Absolute Lymphs (auto) 3.39, Nucleated RBC % 0, Sodium 142, Potassium 4.5, Chloride 107, Carbon Dioxide 29.0, Anion Gap 6, BUN 36 H, Creatinine 1.29 H, Estim Creat Clear Calc 28.43, Est GFR (MDRD) Af Amer 52 L, Est GFR (MDRD) Non-Af 43 L, BUN/Creatinine Ratio 27.9 H, Glucose 148 H, Calcium 9.5, Troponin I High Sens 6, B-Natriuretic Peptide 394.7 H ABG Data ABG results: ABG 12/31/22 01:52 Specimen Type ART Sample Site R Brach pH 7.38 Bicarbonate Actual 26.2 H Total CO2 28 Base Excess 1 O2 Saturation 96 O2 % 45 ABG pCO2 44.6 ABG pO2 84 Terrence Test Positive Respiration Rate 12 O2 Delivery Device BiPAP POC PEEP 8 Clinical Comments BIPAP 14/8 R12 45% Rhythm Strip Rhythm Strip: Sinus Rhythm Rate: 63 Ectopy: None Assessment & Plan Assessment/Plan (1) Acute exacerbation of CHF (congestive heart failure): (2) Acute respiratory failure with hypoxia: (3) GALINA (acute kidney injury): (4) Bilateral lower extremity edema: (5) Elevated brain natriuretic peptide (BNP) level: PLAN: Plan Acute hypoxic respiratory failure etiology is currently unclear -Etiology is currently unclear however likely pneumonia versus heart failure -Initially felt this was likely heart failure however with leukocytosis and patient reporting a fever of 100.5 at home I think we need to do due diligence and treat her empirically for respiratory infection initially -Check sputum culture if patient able to produce -Check respiratory viral panel -Check rapid COVID -Blood cultures ordered in the emergency department -Start ceftriaxone and azithromycin -Lasix 40 mg IV 3 times daily -Add Nitropaste to help with getting her pressure down, diuresis and heart failure -Check echocardiogram -Most recent echo from July 2022 shows an EF of 55% with stage III diastolic dysfunction and right ventricular systolic pressure of 46 mmHg -Strict I's and O's -Fluid restrict to 1500 cc daily -Sodium restrict diet -Daily weights Bilateral lower extremity edema -BNP is elevated that is why I do favor heart failure overall -Continue Lasix as noted above -Bilateral lower extremity Jose bandages -Strict I's and O's - fluid restricted diet once able to eat -Sodium restricted diet once able to eat GALINA -Baseline serum creatinine appears to be between 0.7 and 0.95 -Serum creatinine presentation is 1.29. -Unclear if this elevation is related to being off the Starling curve versus dehydration -With edema will favor being off the Starling curve to start and continue Lasix but transition to IV from oral as noted above -Avoid nephrotoxins as able -Repeat BMP in a.m. COPD with history of tobacco abuse -Patient has had previous PFTs that are suggestive of COPD -Also had a CT in 2021 that showed moderate diffuse centrilobular pulmonary emphysema -Patient with remote history of tobacco abuse -Mild wheezing on exam however cannot exclude cardiac wheeze -Continue to monitor clinically -We will hold off on steroids as patient has documented allergy C. difficile infection -Continue Dificid -Patient without current diarrhea Paroxysmal atrial fibrillation -Currently in normal sinus rhythm -Continue flecainide -Can continue all -Continue apixaban Left-sided carotid artery aneurysm -Continue outpatient follow-up with Dr. Persaud at [facility] Chronic diastolic/right-sided heart failure -Previous echo as above -Repeat echocardiogram is pending Hypertension -Continue Lasix as IV as noted above -Continue home with goal -Continue home valsartan but monitor renal function History of stroke -Continue treatment for atrial fibrillation History of Moses's esophagus -Continue home famotidine -Continue home Carafate Chronic pain -Hold home Flexeril while patient required -As needed Tylenol History of DVT -Patient is fully anticoagulated with apixaban--> we will continue DVT prophylaxis -As above CODE Status -Full code Charges/Coding Visit Charges Inpatient E&M: 87524 Init Hosp L3
[2022-12-31] MEDS: Ceftriaxone 1 GM/50 ML BAG IV ×2 (04:17→20:44)
[2022-12-31] MEDS: hydrALAZINE 20 MG/ML Vial 5 MG IV ×2 (04:17→11:35)
[2022-12-31 05:11] LABS: Troponin-I HS 26 pg/mL (3.0-54.0)
--- NOTE | 2022-12-31 05:55 | NURSING ---
Pt refusing Bipap, this RN educated pt the importance of the Bipap. Pt understands and is aware of risks and benefits
--- NOTE | 2022-12-31 05:55 | ECHOCS_ITS ---
Reason For Study: CHF Procedure This was a 2D Doppler, Color Flow transthoracic echocardiogram. Contrast injection was performed. The study was technically difficult. Exam performed portable in patient room. Left Ventricle Normal size and thickness. The left ventricular ejection fraction is 60 %. Diastolic function is indeterminate. Right Ventricle The right ventricle is not well visualized. Atria The left atrium is moderately enlarged. The right atrium is not well visualized. Mitral Valve Bileaflet diffuse mitral valve thickening. Mild mitral annular calcification. There is no mitral valve stenosis. Mild (1+) mitral valve insufficiency. Tricuspid Valve Normal tricuspid valve. Mild (1+) tricuspid valve insufficiency. Aortic Valve Moderate focal aortic valve calcification. Aortic sclerosis, no stenosis. There is no aortic stenosis. Trivial aortic valve insufficiency. Pulmonic Valve The pulmonic valve is not well visualized. Great Vessels Normal sized aortic root. Pericardium/Pleural No pericardial effusion. Medication Diluted definity 4.0ml given slow IV push to enhance endocardial definition. MMode/2D Measurements & Calculations LVIDd: 5.0 cm IVSd: 1.0 cm Ao root diam: 2.9 cm LVIDs: 2.8 cm LVPWd: 0.99 cm LA dimension: 4.5 cm FS: 44.2 % LAV(MOD-bp): 62.3 ml LVAd ap4: 27.6 cm2 SV(MOD-sp4): 51.6 ml LAV(MOD-bp) Indexed: 37.3 ml/m2 LVLd ap4: 7.7 cm LAV(MOD-sp2): 59.9 ml EDV(MOD-sp4): 81.7 ml LAV(MOD-sp4): 59.9 ml EDV(sp4-el): 83.5 ml LVAs ap4: 14.8 cm2 LVLs ap4: 6.4 cm ESV(MOD-sp4): 30.1 ml ESV(sp4-el): 29.0 ml EF(MOD-sp4): 63.1 % EF(sp4-el): 65.2 % SV(sp4-el): 54.5 ml LA A4 area: 20.0 cm2 LA dimension(2D): 4.5 cm RA A4 area: 13.6 cm2 Time Measurements MV dec time: 0.21 sec Doppler Measurements & Calculations MV E max lazarus: 110.1 cm/sec Lat Peak E' Lazarus: 11.1 cm/sec Med Peak E' Lazarus: 6.3 cm/sec MV A max lazarus: 50.4 cm/sec E/E' lat: 9.9 E/E' med: 17.6 MV E/A: 2.2 MV V2 max: 178.4 cm/sec MV dec slope: 508.7 cm/sec2 Ao V2 max: 182.8 cm/sec MV max P.8 mmHg Ao max P.4 mmHg MV V2 mean: 52.2 cm/sec Ao V2 mean: 124.3 cm/sec MV mean P.8 mmHg Ao mean P.9 mmHg MV V2 VTI: 37.6 cm Ao V2 VTI: 42.6 cm AV (velocity ratio): 0.79 LV V1 max: 122.4 cm/sec MR max lazarus: 467.8 cm/sec PA V2 max: 124.8 cm/sec LV V1 max P.0 mmHg MR max P.5 mmHg PA V2 mean: 77.4 cm/sec LV V1 mean P.4 mmHg MR mean lazarus: 418.0 cm/sec PA V2 VTI: 29.0 cm LV V1 mean: 87.8 cm/sec MR mean P.3 mmHg LV V1 VTI: 33.8 cm MR VTI: 179.8 cm ECHO/Echo Complete W/ Contrast Interpretation Summary The left ventricular ejection fraction is 60 %. Diastolic function is indeterminate. The left atrium is moderately enlarged. Aortic sclerosis, no stenosis. Mild (1+) mitral valve insufficiency. The study was technically difficult. Ordering Physician: Stephanie Scales Referring Physician: Minerva Manley Performed By: Usha Mcdonald, KOLE, RVT
[2022-12-31] MEDS: Nitroglycerin Oint 1 INCH PACKET TD ×3 (06:02→22:31)
[2022-12-31 06:07] LABS: Absolute Lymphocyte Count 1.67 X10^3/uL (0.83-4.51); Absolute Neutrophil Count 10.5 X10^3/uL (2.0-7.7); Basophil# 0.02 X10^3/uL; Basophil% 0.2 % (0-1); Eosinophil# 0.01 X10^3/uL; Eosinophils% 0.1 % (0-5); Hematocrit 37.6 % (37-47); Hemoglobin 12.1 g/dL (12.0-15.0); Lymphocyte # 1.67 X10^3/ul (0.83-4.51); Lymphocyte % 12.9 % (19-41); Mean Corp Hgb Conc 32.2 g/dL (32-36); Mean Corpuscular Volume 93.1 fL (81-99); Mean Platelet Vol. 9.9 fl (6.2-12.0); Monocyte# 0.68 X10^3/uL; Monocyte% 5.3 % (0-10); NRBC Flagged by Analyzer 0 % (0-5); Neutrophil # 10.47 X10^3/uL (2.7-7.7); Platelet Count 271 K/mm3 (150-450); RBC Distribution Width CV 12.9 % (11.6-14.6); RBC Distribution Width SD 43.9 fl (35.1-43.9); Red Blood Count 4.04 M/mm3 (4.2-5.4); White Blood Count 12.9 K/mm3 (4.4-11.0)
[2022-12-31] MEDS: Acetaminophen 325 MG Tablet 650 MG PO ×2 (06:51→21:04)
[2022-12-31 06:58] LABS: Troponin-I HS 42 pg/mL (3.0-54.0)
--- NOTE | 2022-12-31 07:36 | NURSING ---
Pt told this RN that a family member will bring in medications from home that inpt pharmacy does not carry
--- NOTE | 2022-12-31 07:37 | PCM.PN.HOSP ---
Reason for Visit Reason for Visit: Diagnoses Heart failure, unspecified (12/31/22) Acute respiratory failure with hypoxia (12/31/22) Acute kidney failure, unspecified (12/31/22) Localized edema (12/31/22) Other specified abnormal findings of blood chemistry (12/31/22) Subjective Subjective Patient is a 77-year-old lady admitted with shortness of breath of 4 days duration. Patient was found to be significantly hypoxic saturating 80% on room air when she presented to the emergency department. An assessment of acute hypoxia secondary to congestive heart failure with preserved ejection fraction made admitted to a monitored bed for further management Objective Data Objective Data Vital Signs: Vital Signs Temp Pulse Resp BP Pulse Ox O2 Del Method O2 Flow Rate 97.8 F 60 19 H 165/92 H 96 Nasal Cannula 4 12/31/22 06:00 12/31/22 06:02 12/31/22 06:00 12/31/22 06:42 12/31/22 06:00 12/31/22 06:00 12/31/22 06:00 FiO2 35 12/31/22 03:43 Oxygen Flow Rate (L/min) 4 Oxygen Delivery Method Nasal Cannula Weight: 63.9 kg Body Mass Index (BMI) 26.6 Intake & Output: Intake and Output for Last 24 Hours 12/29/22 12/30/22 12/31/22 23:59 23:59 23:59 Intake Total 50 / 50 Output Total 250 / 250 Balance -200 / -200 Lab / Micro Data 12/31/22 05:59 12/31/22 05:59 Labs: Laboratory Results - last 24 hr 12/31/22 01:17: WBC 16.3 H, RBC 4.10 L, Hgb 12.4, Hct 38.3, MCV 93.4, MCH 30.2, MCHC 32.4, RDW Std Deviation 43.9, RDW Coeff of Elvie 12.9, Plt Count 335, MPV 10.2, Immature Gran % (Auto) 0.500, Neut % (Auto) 71.3 H, Lymph % (Auto) 20.8, [place] % (Auto) 6.4, Eos % (Auto) 0.7, Baso % (Auto) 0.3, Absolute Neuts (auto) 11.7 H, Absolute Lymphs (auto) 3.39, Nucleated RBC % 0, Sodium 142, Potassium 4.5, Chloride 107, Carbon Dioxide 29.0, Anion Gap 6, BUN 36 H, Creatinine 1.29 H, Estim Creat Clear Calc 28.43, Est GFR (MDRD) Af Amer 52 L, Est GFR (MDRD) Non-Af 43 L, BUN/Creatinine Ratio 27.9 H, Glucose 148 H, Calcium 9.5, Troponin I High Sens 6, B-Natriuretic Peptide 394.7 H 12/31/22 04:16: Troponin I High Sens 26 12/31/22 05:59: WBC 12.9 H, RBC 4.04 L, Hgb 12.1, Hct 37.6, MCV 93.1, MCH 30.0, MCHC 32.2, RDW Std Deviation 43.9, RDW Coeff of Elvie 12.9, Plt Count 271, MPV 9.9, Immature Gran % (Auto) 0.500, Neut % (Auto) 81.0 H, Lymph % (Auto) 12.9 L, [place] % (Auto) 5.3, Eos % (Auto) 0.1, Baso % (Auto) 0.2, Absolute Neuts (auto) 10.5 H, Absolute Lymphs (auto) 1.67, Nucleated RBC % 0, Troponin I High Sens 42 Micro: Microbiology 12/31/22 03:45 Mucosa - Nasopharyngeal Respiratory Panel (PCR) - Final 12/31/22 03:45 Nasal Secretion SARS-CoV-2 Antigen (Rapid) - Final 12/31/22 04:35 Urine, Clean Catch Legionella Antigen - Final 12/31/22 04:35 Urine, Clean Catch Streptococcus pneumoniae Antigen (M - Final ABG Data ABG results: ABG 12/31/22 01:52 Specimen Type ART Sample Site R Brach pH 7.38 Bicarbonate Actual 26.2 H Total CO2 28 Base Excess 1 O2 Saturation 96 O2 % 45 ABG pCO2 44.6 ABG pO2 84 Terrence Test Positive Respiration Rate 12 O2 Delivery Device BiPAP POC PEEP 8 Clinical Comments BIPAP 14/8 R12 45% Radiography Diagnostic Testing: Radiology Impression Chest X-Ray 12/31/22 01:25 IMPRESSION: Increased interstitial prominence may represent an inflammatory or infectious process. CHF is thought to be less likely but is not excluded. No demonstrated focal pulmonary consolidation. Electronically Signed: Jimbo Pop MD at 2:45 EDT Reading Location ID and State: [facility] / [place] , Service support , Rhythm Strip Rhythm Strip: Sinus Rhythm Rate: 63 Ectopy: None Physical Exam Narrative GENERAL: cooperative HEENT: Atraumatic; normocephalic EYES; Anicteric, Normal Conjunctiva NECK; supple, normal thyroid, RESPIRATORY: Diminished to auscultation CARDIOVASCULAR: Regular S1 S2, GI: soft, normoactive bowel sounds, : No Renal angle tenderness; EXTREMITIES: No edema, no clubbing, MUSCULOSKELETAL: no muscle wasting NEURO: Awake; no lateralizing signs. SKIN: No Rash PSYCH; Flat affect Assessment & Plan Assessment/Plan (1) Acute exacerbation of CHF (congestive heart failure): QUALIFIERS: Heart failure type: diastolic Qualified Code(s): I50.33 - Acute on chronic diastolic (congestive) heart failure (2) Acute respiratory failure with hypoxia: (3) GALINA (acute kidney injury): PLAN: Plan Patient is a 77-year-old lady admitted with shortness of breath of 4 days duration. Patient was found to be significantly hypoxic saturating 80% on room air when she presented to the emergency department. An assessment of acute hypoxia secondary to congestive heart failure with preserved ejection fraction made admitted to a monitored bed for further management 1. Acute hypoxic respiratory failure ? Secondary to acute on chronic congestive heart failure with preserved ejection fraction as well as suspected pneumonia. Admitted to a monitored bed managed with strict input and output Daily weight diuretics. Patient progress monitor with daily BMPs 2. Pneumonia - Suspected to be secondary to streptococcal pneumonia, Blood and sputum cultures sent. Patient placed on Rocephin and Zithromax and placed on oxygen titrated to keep Pulse Ox greater than 90 3. Acute kidney injury ? Baseline creatinine 0.7-0.95 creatinine on admission was 1.29 to expect improvement with diuresis 4. Mild COPD exacerbation ? Managed with bronchodilator treatment as well as p.o. prednisone 5. C. difficile infection ? Patient is on Dificid?continue 6. Paroxysmal A-fib ? Rate controlled on flecainide as well as systemic anticoagulation with apixaban 7. Left-sided carotid artery aneurysm ? Patient is followed by Dr. Chaidez at [facility] as outpatient 8. Hypertension - Blood pressure controlled, home medications continued with dose adjustment as needed 9. Moses's esophagus ? Patient is on famotidine as well as Carafate did continue 10. Chronic pain syndrome ? Patient is some Flexeril as well as acetaminophen as needed 11. History of DVT ? Patient is on apixaban 12. DVT prophylaxis ? Patient on apixaban Time spent in the patient's overall evaluation,decision-making process, review of diagnostic data, adjustment of management, discussion with other providers, nursing nursing and ancillary staff involved in patient's care documentation, 50 Minutes Charges/Coding Visit Charges Inpatient E&M: 05473 [facility] Hosp L3
[2022-12-31] MEDS: Ipratropium 0.5 MG/2.5 ML SOLUTION INHALATION ×2 (08:02→19:35)
[2022-12-31 08:30] LABS: ALB/GLOB Ratio 1.1 RATIO (0.9-2.4); AST(SGOT) 49 U/L (15-37); Alanine Aminotransfer ALT/SGPT 114 U/L (13-56); Albumin, Serum 3.6 g/dL (3.2-5.0); Alkaline Phosphatase 100 U/L (45-117); Anion Gap 8 (5-15); BUN 33 mg/dL (7-18); BUN/Creat Ratio 29.2 RATIO (10-20); Calcium,Total 9.2 mg/dL (8.5-10.1); Chloride 104 mmol/L (98-107); Creatinine, Serum 1.13 mg/dL (0.55-1.02); EST Glomerular Filtration Rate 50 mL/min (>60); Est Glom Filt Rate - Afr Amer 60 mL/min (>60); Estimated Creatinine Clearance 32.46 ml/min; Globulin 3.2 g/dL (2.2-4.2); Glucose 139 mg/dL (74-106); Magnesium 2.3 mg/dL (1.6-2.6); Phosphorus 4.7 mg/dL (2.5-4.9); Potassium 4.3 mmol/L (3.5-5.1); Protein, Total 6.8 g/dL (6.4-8.2); Sodium Level 142 mmol/L (136-145); Thyroid Stim Hormone (TSH) 2.77 uIU/mL (0.358-3.74)
[2022-12-31 10:26] LABS: Troponin-I HS 57 pg/mL (3.0-54.0)
[2022-12-31] MEDS: Multivitamins,Therapeutic Tablet 1 TABLET PO (10:59)
[2022-12-31] MEDS: APIXABAN 5 MG TABLET PO ×2 (10:59→20:34)
[2022-12-31] MEDS: Flecainide 100 MG Tablet PO ×2 (11:00→20:34)
[2022-12-31] MEDS: Famotidine 20 MG Tablet PO (11:00)
--- NOTE | 2022-12-31 11:15 | CASEMGMT ---
RN ZITA Face to Face with patient for initial transition planning/care coordination assessment. RN CM introduced self and role at [facility]. Patient lying in bed, alert and oriented. Patient willing to participate in assessment and is able to answer all questions appropriately.? Care providers, pharmacy, and demographics verified. Patient wishes to discharge home, denies need for home health at this time.? Patient states she has no further needs or concerns at this time. CM to follow for discharge planning needs that may arise. PCP:Sindhu Specialists:Fred (Piano Mechanic), Kike (Sign Wirer), Yayo (OBGYN) Preferred Pharmacy: [facility] Prescription Benefit:?Yes Living Will/HPOA:Yes, granddaughter Don Medeiros LNOK:Granddaughter Don Medeiros Living Arrangements:Patient states she lives alone in a two story home with 6 steps into the basement where the laundry is and 1 step into the home (does have railings). Patient is independent at home. Transportation:Self and neighbor if needed DME/HHC: Patient reports having a Pulse Ox at home. No Oxygen. Patient denies having any previous SNF or HHC. Disposition Plan:Patient to discharge home with follow-up plans in place and assess for possibility of home oxygen. Natalie RÍOS RN, CM
[2022-12-31] MEDS: Sucralfate 1 GM Tablet PO ×3 (11:20→20:34)
[2022-12-31] MEDS: 0.9% Saline Lock 10 ML Syringe IV ×2 (11:22→13:53)
[2022-12-31] MEDS: Ondansetron 4 MG/2 ML Vial IV (13:52)
--- NOTE | 2022-12-31 18:53 | NURSING ---
Reviewed charting with Dariela Lopez RN
--- NOTE | 2022-12-31 19:35 | CPS ---
Pt refused BiPAP for tonight
--- NOTE | 2022-12-31 19:35 | CPS ---
Decreased O2 to 2 LPM
[2022-12-31] MEDS: MELATONIN 3 MG TABLET PO (20:34)
[2022-12-31] MEDS: FIDAXOMICIN 200 MG TABLET PO (20:34)
[2023-01-01] VITALS (12 sets, daily range): BP systolic 111–145; BP diastolic 52–60; PULSE 49–64; RESP 16–18; TEMP 35.8–36.6; O2SAT 87–99; BMI 26.4
[2023-01-01 05:28] LABS: Absolute Lymphocyte Count 2.38 X10^3/uL (0.83-4.51); Absolute Neutrophil Count 5.3 X10^3/uL (2.0-7.7); Basophil# 0.03 X10^3/uL; Basophil% 0.3 % (0-1); Eosinophils% 1.2 % (0-5); Hemoglobin 10.3 g/dL (12.0-15.0); Lymphocyte # 2.38 X10^3/ul (0.83-4.51); Lymphocyte % 27.7 % (19-41); Mean Corp Hgb Conc 31.2 g/dL (32-36); Mean Corpuscular Hgb 29.4 pg (27.0-32.0); Mean Corpuscular Volume 94.3 fL (81-99); Mean Platelet Vol. 10.1 fl (6.2-12.0); Monocyte# 0.79 X10^3/uL; Monocyte% 9.2 % (0-10); NRBC Flagged by Analyzer 0 % (0-5); Neutrophil # 5.25 X10^3/uL (2.7-7.7); Neutrophil % 61.1 % (47-70); Platelet Count 256 K/mm3 (150-450); RBC Distribution Width CV 13.2 % (11.6-14.6); White Blood Count 8.6 K/mm3 (4.4-11.0)
[2023-01-01 05:52] LABS: Anion Gap 5 (5-15); BUN 41 mg/dL (7-18); BUN/Creat Ratio 26.5 RATIO (10-20); Calcium,Total 8.5 mg/dL (8.5-10.1); Chloride 104 mmol/L (98-107); Creatinine, Serum 1.55 mg/dL (0.55-1.02); EST Glomerular Filtration Rate 35 mL/min (>60); Est Glom Filt Rate - Afr Amer 42 mL/min (>60); Estimated Creatinine Clearance 23.66 ml/min; Glucose 109 mg/dL (74-106); Magnesium 2.6 mg/dL (1.6-2.6); Phosphorus 5.3 mg/dL (2.5-4.9); Potassium 4.4 mmol/L (3.5-5.1); Sodium Level 142 mmol/L (136-145)
[2023-01-01] MEDS: Nitroglycerin Oint 1 INCH PACKET TD ×3 (06:07→21:54)
[2023-01-01] MEDS: Furosemide 40 MG/4 ML Vial IV (06:08)
[2023-01-01] MEDS: Sucralfate 1 GM Tablet PO ×4 (06:08→21:53)
[2023-01-01] MEDS: Acetaminophen 325 MG Tablet 650 MG PO ×2 (06:15→21:51)
[2023-01-01] MEDS: Ipratropium 0.5 MG/2.5 ML SOLUTION INHALATION ×3 (07:00→19:45)
--- NOTE | 2023-01-01 07:54 | PN.HOSP_ITS ---
Reason for Visit Reason for Visit: Diagnoses Acute on chronic diastolic (congestive) heart failure (12/31/22) Heart failure, unspecified (12/31/22) Acute respiratory failure with hypoxia (12/31/22) Acute kidney failure, unspecified (12/31/22) Localized edema (12/31/22) Other specified abnormal findings of blood chemistry (12/31/22) Subjective Subjective Patient seen breathing improved kidney function however did worsen patient is on Lasix discontinued Objective Data Objective Data Vital Signs: Vital Signs Temp Pulse Resp BP Pulse Ox O2 Del Method O2 Flow Rate 96.4 F L 49 L 16 141/54 H 99 Nasal Cannula 2 01/01/23 05:00 01/01/23 05:00 01/01/23 05:00 01/01/23 05:00 01/01/23 05:00 01/01/23 05:00 01/01/23 05:00 FiO2 35 12/31/22 03:43 Oxygen Flow Rate (L/min) 2 Oxygen Delivery Method Nasal Cannula Weight: 63.4 kg Body Mass Index (BMI) 26.4 Intake & Output: Intake and Output for Last 24 Hours 12/30/22 12/31/22 01/01/23 23:59 23:59 23:59 Intake Total 1325.00 / 1325.00 240 / 240 Output Total 700 / 700 50 / 50 Balance 625.00 / 625.00 190 / 190 Lab / Micro Data 01/01/23 04:45 01/01/23 04:45 Labs: Laboratory Results - last 24 hr 12/31/22 05:59: Sodium 142, Potassium 4.3, Chloride 104, Carbon Dioxide 30.0, An ion Gap 8, BUN 33 H, Creatinine 1.13 H, Estim Creat Clear Calc 32.46, Est GFR (MDRD) Af Amer 60, Est GFR (MDRD) Non-Af 50 L, BUN/Creatinine Ratio 29.2 H, Glucose 139 H, Calcium 9.2, Phosphorus 4.7, Magnesium 2.3, Total Bilirubin 0.40, AST 49 H, ALT 114 H, Alkaline Phosphatase 100, Total Protein 6.8, Albumin 3.6, Globulin 3.2, Albumin/Globulin Ratio 1.1, TSH 2.77 12/31/22 09:52: Troponin I High Sens 57 H 01/01/23 04:45: WBC 8.6, RBC 3.50 L, Hgb 10.3 L, Hct 33.0 L, MCV 94.3, MCH 29.4, MCHC 31.2 L, RDW Std Deviation 45.0 H, RDW Coeff of Elvie 13.2, Plt Count 256, MPV 10.1, Immature Gran % (Auto) 0.500, Neut % (Auto) 61.1, Lymph % (Auto) 27.7, [place] % (Auto) 9.2, Eos % (Auto) 1.2, Baso % (Auto) 0.3, Absolute Neuts (auto) 5.3, Absolute Lymphs (auto) 2.38, Nucleated RBC % 0, Sodium 142, Potassium 4.4, Chloride 104, Carbon Dioxide 33.0 H, Anion Gap 5, BUN 41 H, Creatinine 1.55 H, Estim Creat Clear Calc 23.66, Est GFR (MDRD) Af Amer 42 L, Est GFR (MDRD) Non-Af 35 L, BUN/Creatinine Ratio 26.5 H, Glucose 109 H, Calcium 8.5, Phosphorus 5.3 H, Magnesium 2.6 Micro: Microbiology 12/31/22 03:45 Mucosa - Nasopharyngeal Respiratory Panel (PCR) - Final 12/31/22 03:45 Nasal Secretion SARS-CoV-2 Antigen (Rapid) - Final 12/31/22 04:35 Urine, Clean Catch Legionella Antigen - Final 12/31/22 04:35 Urine, Clean Catch Streptococcus pneumoniae Antigen (M - Final Radiography Diagnostic Testing: Radiology Impression Echocardiogram 12/31/22 05:55 Interpretation Summary The left ventricular ejection fraction is 60 %. Diastolic function is indeterminate. The left atrium is moderately enlarged. Aortic sclerosis, no stenosis. Mild (1+) mitral valve insufficiency. The study was technically difficult. Ordering Physician: Stephanie Scales Referring Physician: Minerva Manley Performed By: Usha Mcdonald, KOLE, RVT Rhythm Strip Rhythm Strip: Sinus Rhythm Rate: 63 Ectopy: None Physical Exam Narrative GENERAL: cooperative HEENT: Atraumatic; normocephalic EYES; Anicteric, Normal Conjunctiva NECK; supple, normal thyroid, RESPIRATORY: Diminished to auscultation CARDIOVASCULAR: Regular S1 S2, GI: soft, normoactive bowel sounds, : No Renal angle tenderness; EXTREMITIES: No edema, no clubbing, MUSCULOSKELETAL: no muscle wasting NEURO: Awake; no lateralizing signs. SKIN: No Rash PSYCH; Flat affect Assessment & Plan Assessment/Plan (1) Acute exacerbation of CHF (congestive heart failure): QUALIFIERS: Heart failure type: diastolic Qualified Code(s): I50.33 - Acute on chronic diastolic (congestive) heart failure (2) Acute respiratory failure with hypoxia: (3) GALINA (acute kidney injury): PLAN: Plan Patient is a 77-year-old lady admitted with shortness of breath of 4 days duration. Patient was found to be significantly hypoxic saturating 80% on room air when she presented to the emergency department. An assessment of acute hypoxia secondary to congestive heart failure with preserved ejection fraction made admitted to a monitored bed for further management 1. Acute hypoxic respiratory failure ? Secondary to acute on chronic congestive heart failure with preserved ejection fraction as well as suspected pneumonia. Admitted to a monitored bed managed with strict input and output Daily weight diuretics. Patient progress monitor with daily BMPs 2. Pneumonia - Suspected to be secondary to streptococcal pneumonia, Blood and sputum cultures sent. Patient placed on Rocephin and Zithromax and placed on oxygen titrated to keep Pulse Ox greater than 90 3. Acute kidney injury ? Baseline creatinine 0.7-0.95 creatinine on admission was 1.29 to expect improvement with diuresis ? 01/01/2023 patient kidney function did worsen resulting in discontinuation of Lasix patient losartan being held 4. Mild COPD exacerbation ? Managed with bronchodilator treatment as well as p.o. prednisone 5. C. difficile infection ? Patient is on Dificid?continue 6. Paroxysmal A-fib ? Rate controlled on flecainide as well as systemic anticoagulation with apixaban 7. Left-sided carotid artery aneurysm ? Patient is followed by Dr. Chaidez at [facility] as outpatient 8. Hypertension - Blood pressure controlled, home medications continued with dose adjustment as needed 9. Moses's esophagus ? Patient is on famotidine as well as Carafate did continue 10. Chronic pain syndrome ? Patient is some Flexeril as well as acetaminophen as needed 11. History of DVT ? Patient is on apixaban 12. DVT prophylaxis ? Patient on apixaban 13. Physical deconditioning - Requested for PT OT eval and social science manager to assist with discharge planning Time spent in the patient's overall evaluation,decision-making process, review of diagnostic data, adjustment of management, discussion with other providers, nursing nursing and ancillary staff involved in patient's care documentation, 50 Minutes Charges/Coding Visit Charges Inpatient E&M: 95370 [facility] Hosp L3
--- NOTE | 2023-01-01 08:46 | CASEMGMT ---
Social Work Pt has a living will and health care power of senior attorney on file naming her granddaughter Dickson Andrade. LORETO Pendleton
[2023-01-01] MEDS: Multivitamins,Therapeutic Tablet 1 TABLET PO (09:54)
[2023-01-01] MEDS: 0.9% Saline Lock 10 ML Syringe IV ×2 (09:54→22:10)
[2023-01-01] MEDS: Famotidine 20 MG Tablet PO (09:54)
[2023-01-01] MEDS: FIDAXOMICIN 200 MG TABLET PO ×2 (09:54→21:54)
[2023-01-01] MEDS: Losartan Potassium 25 MG Tablet PO (09:54)
[2023-01-01] MEDS: Flecainide 100 MG Tablet PO ×2 (09:55→21:53)
[2023-01-01] MEDS: APIXABAN 5 MG TABLET PO ×2 (09:55→21:53)
[2023-01-01] MEDS: Metoprolol(XL)Succ 50 MG Tablet PO (21:52)
[2023-01-01] MEDS: MELATONIN 3 MG TABLET PO (21:53)
[2023-01-01] MEDS: Ceftriaxone 1 GM/50 ML BAG IV (22:07)
[2023-01-02] VITALS (7 sets, daily range): BP systolic 108–132; BP diastolic 55–64; PULSE 54–60; RESP 14–20; TEMP 35.7–36.3; O2SAT 88–97
[2023-01-02 05:46] LABS: Absolute Lymphocyte Count 2.13 X10^3/uL (0.83-4.51); Absolute Neutrophil Count 5.4 X10^3/uL (2.0-7.7); Basophil# 0.02 X10^3/uL; Basophil% 0.2 % (0-1); Eosinophil# 0.18 X10^3/uL; Eosinophils% 2.1 % (0-5); Hematocrit 32.6 % (37-47); Hemoglobin 10.1 g/dL (12.0-15.0); Lymphocyte # 2.13 X10^3/ul (0.83-4.51); Lymphocyte % 25.2 % (19-41); Mean Corpuscular Hgb 29.5 pg (27.0-32.0); Mean Corpuscular Volume 95.3 fL (81-99); Mean Platelet Vol. 9.7 fl (6.2-12.0); Monocyte# 0.68 X10^3/uL; NRBC Flagged by Analyzer 0 % (0-5); Neutrophil # 5.41 X10^3/uL (2.7-7.7); Neutrophil % 64.1 % (47-70); Platelet Count 245 K/mm3 (150-450); RBC Distribution Width CV 12.8 % (11.6-14.6); RBC Distribution Width SD 44.7 fl (35.1-43.9); Red Blood Count 3.42 M/mm3 (4.2-5.4); White Blood Count 8.5 K/mm3 (4.4-11.0)
[2023-01-02 06:08] LABS: Anion Gap 2 (5-15); BUN 42 mg/dL (7-18); BUN/Creat Ratio 32.1 RATIO (10-20); Calcium,Total 8.6 mg/dL (8.5-10.1); Chloride 105 mmol/L (98-107); Creatinine, Serum 1.31 mg/dL (0.55-1.02); EST Glomerular Filtration Rate 42 mL/min (>60); Est Glom Filt Rate - Afr Amer 51 mL/min (>60); Glucose 108 mg/dL (74-106); Potassium 4.7 mmol/L (3.5-5.1); Sodium Level 140 mmol/L (136-145)
[2023-01-02] MEDS: Nitroglycerin Oint 1 INCH PACKET TD (06:20)
[2023-01-02] MEDS: Sucralfate 1 GM Tablet PO ×2 (06:20→11:14)
[2023-01-02] MEDS: Ipratropium 0.5 MG/2.5 ML SOLUTION INHALATION ×2 (07:00→12:16)
--- NOTE | 2023-01-02 08:13 | PN.HOSP_ITS ---
Reason for Visit Reason for Visit: Diagnoses Acute on chronic diastolic (congestive) heart failure (12/31/22) Heart failure, unspecified (12/31/22) Acute respiratory failure with hypoxia (12/31/22) Acute kidney failure, unspecified (12/31/22) Localized edema (12/31/22) Other specified abnormal findings of blood chemistry (12/31/22) Subjective Subjective Patient seen clinical condition continues to improve. Plan is for patient to be assessed for home oxygen need prior to discharge Objective Data Objective Data Vital Signs: Vital Signs Temp Pulse Resp BP Pulse Ox O2 Del Method O2 Flow Rate 97.3 F L 60 20 H 132/55 H 93 Nasal Cannula 1 01/02/23 04:00 01/02/23 07:02 01/02/23 07:02 01/02/23 06:20 01/02/23 07:02 01/02/23 07:02 01/02/23 07:02 FiO2 35 12/31/22 03:43 Oxygen Flow Rate (L/min) 1 Oxygen Delivery Method Nasal Cannula Weight: 63.4 kg Body Mass Index (BMI) 26.4 Intake & Output: Intake and Output for Last 24 Hours 12/31/22 01/01/23 01/02/23 23:59 23:59 23:59 Intake Total 1325.00 / 1325.00 1145 / 1145 Output Total 700 / 700 50 / 50 Balance 625.00 / 625.00 1095 / 1095 Lab / Micro Data 01/02/23 05:30 01/02/23 05:30 Labs: Laboratory Results - last 24 hr 01/02/23 05:30: WBC 8.5, RBC 3.42 L, Hgb 10.1 L, Hct 32.6 L, MCV 95.3, MCH 29.5, MCHC 31.0 L, RDW Std Deviation 44.7 H, RDW Coeff of Elvie 12.8, Plt Count 245, MPV 9.7, Immature Gran % (Auto) 0.400, Neut % (Auto) 64.1, Lymph % (Auto) 25.2, [place] % (Auto) 8.0, Eos % (Auto) 2.1, Baso % (Auto) 0.2, Absolute Neuts (auto) 5.4, Absolute Lymphs (auto) 2.13, Nucleated RBC % 0, Sodium 140, Potassium 4.7, Chloride 105, Carbon Dioxide 33.0 H, Anion Gap 2 L, BUN 42 H, Creatinine 1.31 H, Estim Creat Clear Calc 28.00, Est GFR (MDRD) Af Amer 51 L, Est GFR (MDRD) Non-Af 42 L, BUN/Creatinine Ratio 32.1 H, Glucose 108 H, Calcium 8.6 Micro: Microbiology 12/31/22 03:45 Mucosa - Nasopharyngeal Respiratory Panel (PCR) - Final 12/31/22 03:45 Nasal Secretion SARS-CoV-2 Antigen (Rapid) - Final 12/31/22 04:35 Urine, Clean Catch Legionella Antigen - Final 12/31/22 04:35 Urine, Clean Catch Streptococcus pneumoniae Antigen (M - Final Rhythm Strip Rhythm Strip: Sinus Rhythm Rate: 63 Ectopy: None Physical Exam Narrative GENERAL: cooperative HEENT: Atraumatic; normocephalic EYES; Anicteric, Normal Conjunctiva NECK; supple, normal thyroid, RESPIRATORY: Diminished to auscultation CARDIOVASCULAR: Regular S1 S2, GI: soft, normoactive bowel sounds, : No Renal angle tenderness; EXTREMITIES: No edema, no clubbing, MUSCULOSKELETAL: no muscle wasting NEURO: Awake; no lateralizing signs. SKIN: No Rash PSYCH; Flat affect Assessment & Plan Assessment/Plan (1) Acute exacerbation of CHF (congestive heart failure): QUALIFIERS: Heart failure type: diastolic Qualified Code(s): I50.33 - Acute on chronic diastolic (congestive) heart failure (2) Acute respiratory failure with hypoxia: (3) GALINA (acute kidney injury): PLAN: Plan Patient is a 77-year-old lady admitted with shortness of breath of 4 days duration. Patient was found to be significantly hypoxic saturating 80% on room air when she presented to the emergency department. An assessment of acute hypoxia secondary to congestive heart failure with preserved ejection fraction made admitted to a monitored bed for further management 1. Acute hypoxic respiratory failure ? Secondary to acute on chronic congestive heart failure with preserved ejection fraction as well as suspected pneumonia. Admitted to a monitored bed managed with strict input and output Daily weight diuretics. Patient progress monitor with daily BMPs 2. Pneumonia - Suspected to be secondary to streptococcal pneumonia, Blood and sputum cultures sent. Patient placed on Rocephin and Zithromax and placed on oxygen titrated to keep Pulse Ox greater than 90 3. Acute kidney injury ? Baseline creatinine 0.7-0.95 creatinine on admission was 1.29 to expect improvement with diuresis ? 01/01/2023 patient kidney function did worsen resulting in discontinuation of Lasix patient losartan being held 4. Mild COPD exacerbation ? Managed with bronchodilator treatment as well as p.o. prednisone 5. C. difficile infection ? Patient is on Dificid?continue 6. Paroxysmal A-fib ? Rate controlled on flecainide as well as systemic anticoagulation with a pixaban 7. Left-sided carotid artery aneurysm ? Patient is followed by Dr. Chaidez at [facility] as outpatient 8. Hypertension - Blood pressure controlled, home medications continued with dose adjustment as needed 9. Moses's esophagus ? Patient is on famotidine as well as Carafate did continue 10. Chronic pain syndrome ? Patient is some Flexeril as well as acetaminophen as needed 11. History of DVT ? Patient is on apixaban 12. DVT prophylaxis ? Patient on apixaban 13. Physical deconditioning - Requested for PT OT eval and social welfare research worker to assist with discharge planning Time spent in the patient's overall evaluation,decision-making process, review of diagnostic data, adjustment of management, discussion with other providers, nursing nursing and ancillary staff involved in patient's care documentation, 35 minutes Charges/Coding Visit Charges Inpatient E&M: 73709 Subs Hosp L2
[2023-01-02] MEDS: Multivitamins,Therapeutic Tablet 1 TABLET PO (08:29)
--- NOTE | 2023-01-02 10:07 | PCM.DC.SUM ---
Providers Date of Admission: 12/31/22 Date of Discharge: 01/02/23 Primary Care Physician: Dr. Minerva Manley MD Reason For Visit: ACUTE HYPOXIC RESPIRATORY FAILURE Diagnosis Discharge Diagnosis (1) Acute exacerbation of CHF (congestive heart failure): Status: Chronic Code(s): I50.9 - Heart failure, unspecified Qualifiers: Heart failure type: diastolic Qualified Code(s): I50.33 - Acute on chronic diastolic (congestive) heart failure (2) Acute respiratory failure with hypoxia: Status: Acute Code(s): J96.01 - Acute respiratory failure with hypoxia (3) GALINA (acute kidney injury): Status: Acute Code(s): N17.9 - Acute kidney failure, unspecified Plan Patient is a 77-year-old lady admitted with shortness of breath of 4 days duration. Patient was found to be significantly hypoxic saturating 80% on room air when she presented to the emergency department. An assessment of acute hypoxia secondary to congestive heart failure with preserved ejection fraction made admitted to a monitored bed for further management 1. Acute hypoxic respiratory failure ? Secondary to acute on chronic congestive heart failure with preserved ejection fraction as well as suspected pneumonia. Admitted to a monitored bed managed with strict input and output Daily weight diuretics. Patient progress monitor with daily BMPs 2. Pneumonia - Suspected to be secondary to streptococcal pneumonia, Blood and sputum cultures sent. Patient placed on Rocephin and Zithromax and placed on oxygen titrated to keep Pulse Ox greater than 90 3. Acute kidney injury ? Baseline creatinine 0.7-0.95 creatinine on admission was 1.29 to expect improvement with diuresis ? 01/01/2023 patient kidney function did worsen resulting in discontinuation of Lasix patient losartan being held 4. Mild COPD exacerbation ? Managed with bronchodilator treatment as well as p.o. prednisone 5. C. difficile infection ? Patient is on Dificid?continue 6. Paroxysmal A-fib ? Rate controlled on flecainide as well as systemic anticoagulation with apixaban 7. Left-sided carotid artery aneurysm ? Patient is followed by Dr. Chaidez at [facility] as outpatient 8. Hypertension - Blood pressure controlled, home medications continued with dose adjustment as needed 9. Moses's esophagus ? Patient is on famotidine as well as Carafate did continue 10. Chronic pain syndrome ? Patient is some Flexeril as well as acetaminophen as needed 11. History of DVT ? Patient is on apixaban 12. DVT prophylaxis ? Patient on apixaban 13. Physical deconditioning - Requested for PT OT eval and social work supervisor to assist with discharge planning Time spent in the patient's overall evaluation,decision-making process, review of diagnostic data, adjustment of management, discussion with other providers, nursing nursing and ancillary staff involved in patient's care documentation, 35 minutes Medications at Discharge Home Medications multivitamin with folic acid 400 mcg tablet 1 tab PO DAILY supplement 03/15/13 melatonin 3 mg capsule 3 mg PO HS Check with primary doctor 01/19/21 calcium carbonate 500 mg calcium (1,250 mg) tablet 500 mg PO DAILY Check with primary doctor 06/25/21 apixaban 5 mg tablet 5 mg PO BID #180 tabs 06/14/22 cyclobenzaprine 10 mg tablet 10 mg PO HS PRN muscle spasm 07/25/22 famotidine 20 mg tablet 20 mg PO BID Check with primary doctor 07/25/22 potassium chloride 20 mEq tablet,extended release(part/cryst) 20 meq PO DAILY #180 tabs 07/25/22 flecainide 100 mg tablet 100 mg PO Q12H 08/27/22 furosemide 40 mg tablet 40 mg PO DAILY #90 tabs 09/26/22 metoprolol succinate 50 mg tablet,extended release 24 hr 50 mg PO BID #60 tabs 10/03/22 valsartan 40 mg tablet 20 mg PO DAILY 10/03/22 fidaxomicin 200 mg tablet (Dificid) 200 mg PO Q12H 12/31/22 sucralfate 100 mg/mL oral suspension 10 ml PO ACHS 12/31/22 azithromycin 500 mg tablet (Zithromax) 500 mg PO DAILY 3 days #3 tabs 01/02/23 cefdinir 300 mg capsule 300 mg PO BID #10 caps 01/02/23 Hospital Course Procedures 2-D Echocardiogram Summary of Care Provided Minutes Spent on Discharge: 35 Physical Exam Narrative GENERAL: cooperative HEENT: Atraumatic; normocephalic EYES; Anicteric, Normal Conjunctiva NECK; supple, normal thyroid, RESPIRATORY: Diminished to auscultation CARDIOVASCULAR: Regular S1 S2, GI: soft, normoactive bowel sounds, : No Renal angle tenderness; EXTREMITIES: No edema, no clubbing, MUSCULOSKELETAL: no muscle wasting NEURO: Awake; no lateralizing signs. SKIN: No Rash PSYCH; Flat affect Weight / BMI Weight Weight: 63.4 kg Body Mass Index (BMI) 26.4 ABG / Lab / Microbiology Data 01/02/23 05:30 01/02/23 05:30 Laboratory: Laboratory Results - last 24 hr 01/02/23 05:30: WBC 8.5, RBC 3.42 L, Hgb 10.1 L, Hct 32.6 L, MCV 95.3, MCH 29.5, MCHC 31.0 L, RDW Std Deviation 44.7 H, RDW Coeff of Elvie 12.8, Plt Count 245, MPV 9.7, Immature Gran % (Auto) 0.400, Neut % (Auto) 64.1, Lymph % (Auto) 25.2, [place] % (Auto) 8.0, Eos % (Auto) 2.1, Baso % (Auto) 0.2, Absolute Neuts (auto) 5.4, Absolute Lymphs (auto) 2.13, Nucleated RBC % 0, Sodium 140, Potassium 4.7, Chloride 105, Carbon Dioxide 33.0 H, Anion Gap 2 L, BUN 42 H, Creatinine 1.31 H, Estim Creat Clear Calc 28.00, Est GFR (MDRD) Af Amer 51 L, Est GFR (MDRD) Non-Af 42 L, BUN/Creatinine Ratio 32.1 H, Glucose 108 H, Calcium 8.6 Microbiology: Microbiology 12/31/22 03:45 Mucosa - Nasopharyngeal Respiratory Panel (PCR) - Final 12/31/22 03:45 Nasal Secretion SARS-CoV-2 Antigen (Rapid) - Final 12/31/22 04:35 Urine, Clean Catch Legionella Antigen - Final 12/31/22 04:35 Urine, Clean Catch Streptococcus pneumoniae Antigen (M - Final D/C Instructions Discharge Diet: 8 Cup Fluid Restriction and 2000 mg Sodium Diet Discharge Activity: Return to Normal Activity Return to work on: 08/11/22 (Patient was admitted from 08/08-08/11/2022. She may return to work with no restrictions. ) Call your doctor if you observe: Shortness of breath, Increased palpitations (irregular heartbeat) and - (unilateral weakness) Meaningful Use Info Meaningful Use Diagnoses (Choose all that apply): CHF CHF LAYLA/ARB ordered at discharge?: Yes Documented LVEF (%): 60 Discharge Plan Admission Admit Date/Time: 12/31/22 02:29 Attending Provider: Josep Vasquez Primary Care Provider: Minerva Manley Consulting Providers: Stephanie Scales Discharge Orders/Prescriptions Prescriptions: New cefdinir 300 mg capsule 300 mg PO BID Qty: 10 0RF azithromycin [Zithromax] 500 mg tablet 500 mg PO DAILY 3 Days Qty: 3 0RF Continued melatonin 3 mg capsule 3 mg PO HS calcium carbonate 500 mg calcium (1,250 mg) tablet 500 mg PO DAILY cyclobenzaprine 10 mg tablet 10 mg PO HS PRN (Reason: muscle spasm) famotidine 20 mg tablet 20 mg PO BID Patient Comments: Take 1 tablet by mouthUtwice daily. flecainide 100 mg tablet 100 mg PO Q12H valsartan 40 mg tablet 20 mg PO DAILY metoprolol succinate 50 mg tablet extended release 24 hr 50 mg PO BID Qty: 60 11RF multivitamin with folic acid 1 TABLET tablet 1 tab PO DAILY Patient Comments: VITAMIN Dificid 200 mg tablet 200 mg PO Q12H sucralfate 100 mg/mL suspension 10 ml PO ACHS Patient Comments: Take 10 mL by mouthEbefore meals and at bedtime. (560cc=2wks) apixaban 5 mg tablet 5 mg PO BID Qty: 180 3RF potassium chloride 20 mEq tablet,ER particles/crystals 20 meq PO DAILY Qty: 180 3RF furosemide 40 mg tablet 40 mg PO DAILY Qty: 90 3RF Referrals / Follow Up: Minerva Manley MD [Primary Care Provider] - Within 1 Week Disposition Disposition (needs filled in before D/C Order can be placed): Home, Self Care Charges/Coding Visit Charges Inpatient E&M: 47656 Disch Hosp >30min
[2023-01-02] MEDS: APIXABAN 5 MG TABLET PO (11:13)
[2023-01-02] MEDS: FIDAXOMICIN 200 MG TABLET PO (11:13)
[2023-01-02] MEDS: Famotidine 20 MG Tablet PO (11:13)
[2023-01-02] MEDS: Flecainide 100 MG Tablet PO (11:14)
[2023-01-02] MEDS: Sodium Chloride 0.65% 1 SPRAY SPRAY.BTL 2 SPRAY NASAL (11:34)
--- NOTE | 2023-01-02 11:48 | PHA.DC.MC.R ---
Pharmacy [facility] has performed discharge medication reconciliation and counseling for this patient. The patient was counseled on the following discharge medications and changes in medications for homegoing were reviewed. The Reason for Use, instructions for use, and potential side effects were reviewed for all new medications. The patient's questions regarding all of their medications were answered. The patient was able to verbally demonstrate an understanding of their discharge medications. The patient's discharge medication list was reviewed for discrepancies and discrepancies were resolved. Patient counselled by Jadyn Varghese PharmD Candidate Medications at Discharge Home Medications multivitamin with folic acid 400 mcg tablet 1 tab PO DAILY supplement 03/15/13 melatonin 3 mg capsule 3 mg PO HS Check with primary doctor 01/19/21 calcium carbonate 500 mg calcium (1,250 mg) tablet 500 mg PO DAILY Check with primary doctor 06/25/21 apixaban 5 mg tablet 5 mg PO BID #180 tabs 06/14/22 cyclobenzaprine 10 mg tablet 10 mg PO HS PRN muscle spasm 07/25/22 famotidine 20 mg tablet 20 mg PO BID Check with primary doctor 07/25/22 potassium chloride 20 mEq tablet,extended release(part/cryst) 20 meq PO DAILY #180 tabs 07/25/22 flecainide 100 mg tablet 100 mg PO Q12H 08/27/22 furosemide 40 mg tablet 40 mg PO DAILY #90 tabs 09/26/22 metoprolol succinate 50 mg tablet,extended release 24 hr 50 mg PO BID #60 tabs 10/03/22 valsartan 40 mg tablet 20 mg PO DAILY 10/03/22 fidaxomicin 200 mg tablet (Dificid) 200 mg PO Q12H 12/31/22 sucralfate 100 mg/mL oral suspension 10 ml PO ACHS 12/31/22 azithromycin 500 mg tablet (Zithromax) 500 mg PO DAILY 3 days #3 tabs 01/02/23 cefdinir 300 mg capsule 300 mg PO BID #10 caps 01/02/23
--- NOTE | 2023-01-02 15:09 | CASEMGMT ---
RN ZITA updated that patient will home oxygen at discharge. RN ZITA received script. Patient prefers [facility]. Referral sent to [facility] via [facility] and portable tank provided from [facility]. Patient denies further needs at discharge. Patient had no further questions or concerns.
== END 2023-01-02 15:26 | disposition home or self-care (01) | DRG 291 ==
LOC: ED 02:22 → PCU 02:39
PROVIDERS: Admitting Provider Internal Medicine; Emergency Provider Emergency Medicine; PCP Internal Medicine; Visit Provider Internal Medicine
DX: I11.0 Hypertensive heart disease with heart failure (principal); J96.01 Acute respiratory failure with hypoxia; J15.4 Pneumonia due to other streptococci; I50.33 Acute on chronic diastolic (congestive) heart failure; N17.9 Acute kidney failure, unspecified; J44.0 Chronic obstructive pulmonary disease with (acute) lower respiratory infection; J44.1 Chronic obstructive pulmonary disease with (acute) exacerbation; I72.0 Aneurysm of carotid artery; Z79.01 Long term (current) use of anticoagulants; I48.0 Paroxysmal atrial fibrillation; K22.70 Barrett's esophagus without dysplasia; G89.4 Chronic pain syndrome; R53.81 Other malaise; Z79.899 Other long term (current) drug therapy; Z86.73 Personal history of transient ischemic attack (TIA), and cerebral infarction without residual deficits; Z86.718 Personal history of other venous thrombosis and embolism; Z87.891 Personal history of nicotine dependence
CPT/HCPCS: 36415; 36600; 71045; 80048; 80053; 82803; 83735; 83880; 84100; 84443; 84484; 85025; 87449; 87633; 87811; 93005; 93306; 94002; 94640; 94668; 94762; 97112; 97162; 97166; 97535; 99252; 99285; J7050; Q9957; A4216; C8929; G0463; J1940; J2405

== ENCOUNTER → 2023-01-23 | Outpatient (CLI) | payer OTHER, MEDICARE, SELFPAY ==
[2023-01-23 16:40] LABS: Absolute Lymphocyte Count 2.97 X10^3/uL (0.83-4.51); Absolute Neutrophil Count 4.2 X10^3/uL (2.0-7.7); Basophil# 0.02 X10^3/uL; Basophil% 0.3 % (0-1); Eosinophil# 0.14 X10^3/uL; Eosinophils% 1.8 % (0-5); Hemoglobin 11.5 g/dL (12.0-15.0); Lymphocyte # 2.97 X10^3/ul (0.83-4.51); Lymphocyte % 37.2 % (19-41); Mean Corp Hgb Conc 31.9 g/dL (32-36); Mean Corpuscular Hgb 30.5 pg (27.0-32.0); Mean Corpuscular Volume 95.5 fL (81-99); Mean Platelet Vol. 10.1 fl (6.2-12.0); Monocyte# 0.63 X10^3/uL; Monocyte% 7.9 % (0-10); NRBC Flagged by Analyzer 0 % (0-5); Neutrophil # 4.21 X10^3/uL (2.7-7.7); Neutrophil % 52.5 % (47-70); Platelet Count 314 K/mm3 (150-450); RBC Distribution Width CV 13.1 % (11.6-14.6); RBC Distribution Width SD 45.1 fl (35.1-43.9); Red Blood Count 3.77 M/mm3 (4.2-5.4)
[2023-01-23 16:53] LABS: Anion Gap 2 (5-15); BNP,B-Type NATRIURETIC PEPTIDE 252.5 pg/mL (0-100); BUN 24 mg/dL (7-18); BUN/Creat Ratio 26.5 RATIO (10-20); Calcium,Total 9.5 mg/dL (8.5-10.1); Chloride 103 mmol/L (98-107); Creatinine, Serum 0.91 mg/dL (0.55-1.02); D-Dimer Quantitative (DVT/PE) 0.36 FEU/ug/m (0.27-0.49); EST Glomerular Filtration Rate 64 mL/min (>60); Est Glom Filt Rate - Afr Amer 78 mL/min (>60); Glucose 99 mg/dL (74-106); Potassium 4.5 mmol/L (3.5-5.1); Sodium Level 138 mmol/L (136-145)
== END | disposition home or self-care (01) ==
PROVIDERS: PCP Internal Medicine; Referring Provider Nurse Practitioner; Visit Provider Nurse Practitioner
DX: J18.9 Pneumonia, unspecified organism (principal); I50.9 Heart failure, unspecified; Z92.89 Personal history of other medical treatment
CPT/HCPCS: 80048; 83880; 85025; 85379

== ENCOUNTER → 2023-04-02 | Outpatient (CLI) | payer OTHER, MEDICARE, SELFPAY ==
--- NOTE | 2023-04-02 10:20 | RAD_ITS ---
STUDY: X-RAY - PELVIS AND RIGHT HIP REASON FOR EXAM: Female, 77 years old. Right hip pain. TECHNIQUE: 3 views of the pelvis and hip. COMPARISON: April 30, 2021. FINDINGS: There is a non-specific bowel gas pattern. Clips projected over the pelvis. Phleboliths. Osteopenia. Mild arthrosis of both sacroiliac joints. Mild arthrosis of the symphysis pubis. Moderate arthrosis of both hips, right greater than left. RAD/HIP, UNI W/ Pelvis 2-3 Views IMPRESSION: Stable osteopenia with osteoarthritic changes most marked in the right hip. No acute abnormality or erosive changes. Electronically Signed: Lázaro Olmstead MD at 14:23 EST ,
== END | disposition home or self-care (01) ==
LOC: RAD 10:16
PROVIDERS: PCP Internal Medicine; Referring Provider Anesthesiology Pain Medicine; Visit Provider Anesthesiology Pain Medicine
DX: M16.11 Unilateral primary osteoarthritis, right hip (principal)
CPT/HCPCS: 73502

== ENCOUNTER → 2023-06-05 | Outpatient (CLI) | payer OTHER, MEDICARE, SELFPAY ==
--- OUTSIDE RECORDS SUMMARY | 2023-06-05 11:08 | XMS RPT_ITS | CCD ---
Author Name Unknown Address [address] [place] [address] Organization [facility] Care Team Providers Care Tow Truck Dispatcher Name Role Phone [facility], [facility] Unavailable Sindhu HICKS, Brandon Primary Care Provider Humberto Manley MDra Angel Primary Care Provider [phone] [facility], [facility] Unavailable Humberto Manley MDra Primary Care Provider OLDER, GWENDOLYN Referring Unavailable OLDER, GWENDOLYN Admitting Unavailable TALIA HAQUE Attending Unavailable GANTA, BRANDON ANGEL Primary Care Unavailable GANTA, BRANDON ANGEL Primary Care Unavailable TALIA HAQUE Attending Unavailable Fred, Maxim S Unavailable Fred HICKS [facility] Unavailable GANTA, BRANDON Primary Care Unavailable GANTA, BRANDON Attending Unavailable DAVIN VICTOR Attending Unavailable GANTA, BRANDON Primary Care Unavailable GANTA, BRANDON Referring Unavailable OLDER, LUPE Attending Unavailable GANTA, BRANDON Primary Care Unavailable SYLVIA GAMBOA Attending Unavailable OLDER, GWENDOLYN Referring Unavailable GANTA, BRANDON Primary Care Unavailable OLDER, GWENDOLYN Attending Unavailable GANTA, BRANDON Primary Care Unavailable OLDER, GWENDOLYN Attending Unavailable GANTA, BRANDON Primary Care Unavailable OLDER, GWENDOLYN Attending Unavailable GANTA, BRANDON Primary Care Unavailable OLDER, GWENDOLYN Referring Unavailable GANTA, BRANDON Primary Care Unavailable OLDER, GWENDOLYN Referring Unavailable GANTA, BRANDON Primary Care Unavailable OLDER, GWENDOLYN Referring Unavailable GANTA, BRANDON Primary Care Unavailable OLDER, GWENDOLYN Referring Unavailable GANTA, BRANDON Primary Care Unavailable OLDER, GWENDOLYN Attending Unavailable GANTA, BRANDON Primary Care Unavailable OLDER, GWENDOLYN Referring Unavailable GANTA, BRANDON Primary Care Unavailable TALAMPAS, PHIL D Referring Unavailable TALAMPAS, PHIL D Attending Unavailable GANTA, BRANDON Primary Care Unavailable GANTA, BRANDON Primary Care Unavailable GANTA, BRANDON Referring Unavailable FARHAT, KATHERYN T Referring Unavailable FARHTA, KATHERYN T Attending Unavailable GANTA, BRANDON Primary Care Unavailable OLDER, GWENDOLYN Attending Unavailable GANTA, BRANDON Primary Care Unavailable GANTA, BRANDON Primary Care Unavailable GANTA, BRANDON Attending Unavailable MEREDITH, ZULEYMA D Referring Unavailable MEREDITH, ZULEYMA D Attending Unavailable GANTA, BRANDON Primary Care Unavailable MEREDITH, ZULEYMA D Referring Unavailable GANTA, BRANDON Primary Care Unavailable OLDER, GWENDOLYN Attending Unavailable GANTA, BRANDON Primary Care Unavailable OLDER, GWENDOLYN Referring Unavailable GANTA, BRANDON Primary Care Unavailable OLDER, GWENDOLYN Attending Unavailable GANTA, BRANDON Primary Care Unavailable SYLVIA GAMOBA Attending Unavailable GANTA, BRANDON Primary Care Unavailable FARHAT, KATHERYN T Attending Unavailable GANTA, BRANDON Primary Care Unavailable OLDER, GWENDOLYN Attending Unavailable GANTA, BRANDON Primary Care Unavailable MEREDITH, ZULEYMA D Attending Unavailable GANTA, BRANDON Primary Care Unavailable OLDER, GWENDOLYN Referring Unavailable GANTA, BRANDON Primary Care Unavailable OLDER, GWENDOLYN Referring Unavailable GANTA, BRANDON Primary Care Unavailable GANTA, BRANDON Primary Care Unavailable GANTA, BRANDON Attending Unavailable OLDER, GWENDOLYN Attending Unavailable GANTA, BRANDON Primary Care Unavailable GANTA, BRANDON Primary Care Unavailable GANTA, BRANDON Attending Unavailable OLDER, GWENDOLYN Attending Unavailable GANTA, BRANDON Primary Care Unavailable OLDER, GWENDOLYN Referring Unavailable GANTA, BRANDON Primary Care Unavailable OLDER, GWENDOLYN Referring Unavailable GANTA, BRANDON Primary Care Unavailable OLDER, GWENDOLYN Attending Unavailable GANTA, BRANDON Primary Care Unavailable FAHRAT, KATHERYN T Referring Unavailable FARHAT, KATHERYN T Attending Unavailable GANTA, BRANDON Primary Care Unavailable FARHAT, KATHERYN T Attending Unavailable GANTA, BRANDON Primary Care Unavailable GANTA, BRANDON Primary Care Unavailable GANTA, BRANDON Referring Unavailable Allergies Allergy Classification Reported Allergen(s) Allergy Type Date of Onset Reaction(s) Facility (20 sources) Codeine; Translations: [CODEINE] Drug Allergy 6 Vomiting, Nausea and vomiting [facility] (20 sources) dilTIAZem; Translations: [DILTIAZEM HCL] Drug Allergy 5 Swelling [facility] Work Phone: (20 sources) Etodolac; Translations: [ETODOLAC] Drug Allergy 3 Other: See Comments, Palpitations [facility] (20 sources) guaiFENesin / Phenylephrine; Translations: [PHENYLEPHRINE- GUAIFENESIN] Drug Allergy 7 Rash [facility] Work Phone: (20 sources) meloxicam; Translations: [MELOXICAM] Drug Allergy 3 Other: See Comments, Palpitations [facility] Work Phone: (20 sources) Naproxen; Translations: [NAPROXEN] Drug Allergy 1 Swelling [facility] Work Phone: (20 sources) raNITIdine; Translations: [RANITIDINE HCL] Drug Allergy 7 Rash, Swelling [facility] Work Phone: (20 sources) traZODone; Translations: [TRAZODONE] Drug Allergy 5 Other: See Comments, Other (See Comments) [facility] Work Phone: (20 sources) surgical tape adhesives [Other] Propensity to adverse reactions [facility] Work Phone: [phone] (5 sources) Adhesive agent; Translations: [ADHESIVE] Propensity to adverse reactions to drug 7 Rash [facility] (5 sources) dilTIAZem; Translations: [DILTIAZEM] Drug Allergy 5 Swelling [facility] (4 sources) Adhesive Tape; Translations: [ADHESIVE TAPE (ROSINS)] Allergy to substance 3 [facility] Work Phone: (1 source) OTHER; Translations: [OTHER] Propensity to adverse reactions (disorder) 9 [facility] Repository Medications Current Medications Medication Drug Class(es) Dates Sig (Normalized) Sig (Original) acetaminophen 500 mg oral tablet (2 sources) Start: 01-01-2022 End: 01-08-2022 take 2 tablets by mouth every six hours as needed acetaminophen (TYLENOL EXTRA STRENGTH) 500 mg tablet Take 2 tablets by mouth every 6 hours as needed for pain for up to 7 days. 56 tablet 2 01/01/2022 01/08/2022 Active Completed/Discontinued Medications Medication Drug Class(es) Dates Sig (Normalized) Sig (Original) amoxicillin 875 mg / clavulanate 125 mg oral tablet (1 source) Penicillin-class Antibacterial Start: 09-30-2022 End: 10-10-2022 take 1 tablet by mouth twice daily amoxicillin-clav ulanic acid (AUGMENTIN) 875-125 mg per tablet Take 1 tablet by mouth twice daily for 10 days. 20 tablet 0 09/30/2022 10/10/2022 Problems Active Problems Problem Classification Problem Date Documented Da te Episodic/Chronic Acute bronchitis (1 source) Acute bronchitis; Translations: [Acute bronchitis, unspecified] 01-27-2023 Episodic Acute cerebrovascular disease (2 sources) Cerebrovascular accident; Translations: [Cerebral infarction, unspecified] Onset: 08-15-2022 08-19-2022 Chronic Administrative/social admission (1 source) Education and/or schooling finding; Translations: [Problems related to education and literacy, unspecified] Episodic Cardiac dysrhythmias (20 sources) Atrial fibrillation; Translations: [Unspecified atrial fibrillation] Onset: 08-19-2014 05-07-2021 Chronic Chronic obstructive pulmonary disease and bronchiectasis (20 sources) Panacinar emphysema; 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] Onset: 04-28-2015 04-28-2015 Chronic Congestive heart failure; nonhypertensive (20 sources) Congestive heart failure; Translations: [Heart failure, unspecified] Onset: 12-24-2021 Chronic Esophageal disorders (20 sources) Moses's esophagus; 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] Onset: 07-16-2006 01-26-2018 Chronic Essential hypertension (20 sources) Hypertensive disorder; Translations: [Essential (primary) hypertension] Onset: 07-21-2013 07-21-2013 Chronic Genitourinary symptoms and ill-defined conditions (2 sources) Increased frequency of urination; Translations: [Frequency of micturition] Episodic Intestinal infection (2 sources) Clostridium difficile diarrhea; Translations: [Enterocolitis due to Clostridium difficile, not specified as recurrent] 12-30-2022 Episodic Malaise and fatigue (3 sources) Fatigue; Translations: [Other fatigue] Episodic Nausea and vomiting (1 source) Nausea; Translations: [Nausea] Episodic Nutritional deficiencies (2 sources) Vitamin D deficiency; Translations: [Vitamin D deficiency, unspecified] Onset: 06-08-2022 Chronic Osteoarthritis (20 sources) Arthritis; Translations: [Unspecified osteoarthritis, unspecified site] Onset: 09-25-2015 05-07-2021 Chronic Other and unspecified benign neoplasm (3 sources) History of polyp of colon; Translations: [Personal history of colonic polyps] Episodic Other diseases of bladder and urethra (2 sources) Overactive bladder; Translations: [Overactive bladder] Chronic Other diseases of kidney and ureters (1 source) Abnormal renal function; Translations: [Disorder of kidney and ureter, unspecified] 01-03-2023 Episodic Other gastrointestinal disorders (3 sources) Dysphagia; Translations: [Dysphagia, unspecified] Episodic Other gastrointestinal disorders (4 sources) Altered bowel function; Translations: [Change in bowel habit] Episodic Other gastrointestinal disorders (1 source) Mucus in stool; Translations: [Other fecal abnormalities] 12-26-2022 Episodic Other gastrointestinal disorders (1 source) Dark stools; Translations: [Other fecal abnormalities] 12-26-2022 Episodic Other infections; including parasitic (1 source) History of Clostridium difficile intestinal infection; Translations: [Personal history of other infectious and parasitic diseases] 02-23-2023 Episodic Other liver diseases (1 source) Elevated liver enzymes level; Translations: [Abnormal levels of other serum enzymes] Episodic Other lower respiratory disease (1 source) Difficulty breathing; Translations: [Other abnormalities of breathing] Episodic Other lower respiratory disease (3 sources) Dyspnea; Translations: [Shortness of breath] Episodic Other lower respiratory disease (2 sources) Cough; Translations: [Cough, unspecified type] 12-12-2022 Episodic Other lower respiratory disease (1 source) Wheezing; Translations: [Wheezing] 12-12-2022 Episodic Other nervous system disorders (20 sources) Carpal tunnel syndrome of left wrist; Translations: [Carpal tunnel syndrome, left upper limb] Onset: 01-30-2012 01-30-2012 Chronic Other non-traumatic joint disorders (1 source) Pain in right shoulder; Translations: [Pain in joint, shoulder region] 01-23-2023 Episodic Other nutritional; endocrine; and metabolic disorders (1 source) Decrease in appetite; Translations: [Anorexia] Episodic Other upper respiratory infections (4 sources) Sore throat symptom; Translations: [Acute pharyngitis, unspecified] Episodic Peripheral and visceral atherosclerosis (4 sources) Peripheral vascular disease, unspecified; Translations: [Peripheral vascular disease, unspecified] Onset: 09-12-2022 Chronic Prolapse of female genital organs (20 sources) Incomplete uterovaginal prolapse; Translations: [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] Onset: 12-24-2021 Chronic Residual codes; unclassified (2 sources) Bilateral lower limb edema; Translations: [Localized edema] Episodic Residual codes; unclassified (1 source) Chill; Translations: [Chills (without fever)] Episodic Residual codes; unclassified (2 sources) History of clinical finding in subject; Translations: [Personal history of other medical treatment] 01-03-2023 Episodic Respiratory failure; insufficiency; arrest (adult) (2 sources) Dependence on supplemental oxygen; Translations: [Dependence on supplemental oxygen] 01-03-2023 Chronic Spondylosis; intervertebral disc disorders; other back problems (5 sources) Lumbar spondylosis; Translations: [Spondylosis without myelopathy or radiculopathy, lumbar region] Onset: 09-13-2022 09-13-2022 Chronic Transient cerebral ischemia (6 sources) Transient cerebral ischemia; Translations: [Transient cerebral ischemic attack, unspecified] Onset: 09-13-2022 09-13-2022 Chronic Unclassified (1 source) Subacute cough; Translations: [Subacute cough] Onset: 01-23-2023 Unclassified (1 source) Cough, unspecified type; Translations: [Cough, unspecified type] Onset: 12-12-2022 Urinary tract infections (1 source) Urinary tract infectious disease; Translations: [Urinary tract infection, site not specified] Episodic Viral infection (1 source) Disease caused by 2019-nCoV; Translations: [COVID-19] 03-17-2023 Episodic Viral infection (1 source) COVID-19; Translations: [COVID-19 virus infection] Onset: 03-17-2023 Past or Other Problems Problem Classification Problem Date Documented Da te Episodic/Chronic Abdominal hernia (11 sources) Gastroesophageal reflux disease with hiatal hernia; Translations: [Diaphragmatic hernia without obstruction or gangrene] Onset: 3 Episodic Abdominal pain (12 sources) Abdominal pain; Translations: [Unspecified abdominal pain] Onset: 3 Episodic Calculus of urinary tract (20 sources) Kidney stone; Translations: [Calculus of kidney] Onset: 7 07-16-2006 Episodic Cardiac dysrhythmias (3 sources) Bradycardia; Translations: [Bradycardia, unspecified] Onset: 3 Episodic Conditions associated with dizziness or vertigo (1 source) Benign paroxysmal vertigo, unspecified ear; Translations: [Benign paroxysmal positional vertigo, unspecified laterality] Onset: 3 Episodic E Codes: Fall (2 sources) Fall; Translations: [Unspecified fall, initial encounter] Onset: 3 01-23-2023 Episodic Fever of unknown origin (7 sources) Fever with chills; Translations: [Fever, unspecified] Onset: 3 Episodic Gastrointestinal hemorrhage (4 sources) Hematochezia; Translations: [Melena] Onset: 3 12-26-2022 Episodic Heart valve disorders (20 sources) Heart murmur; Translations: [Cardiac murmur, unspecified] Onset: 2 Episodic Immunizations and screening for infectious disease (2 sources) Needs influenza immunization; Translations: [Encounter for immunization] Onset: 3 Episodic Nutritional deficiencies (2 sources) Cobalamin deficiency; Translations: [Deficiency of other specified B group vitamins] Onset: 3 Episodic Other and unspecified benign neoplasm (1 source) Personal history of colonic polyps; Translations: [Personal history of colonic polyps] Onset: 3 Episodic Other connective tissue disease (20 sources) Tendonitis of right shoulder; Translations: [Other enthesopathies, not elsewhere classified] Onset: 3 05-25-2012 Episodic Other connective tissue disease (20 sources) Unspecified rotator cuff tear or rupture of unspecified shoulder, not specified as traumatic; Translations: [Rotator cuff (capsule) sprain] Onset: 3 05-07-2021 Episodic Other connective tissue disease (20 sources) History of cervical spine fusion; Translations: [Arthrodesis status] Onset: 6 02-14-2016 Episodic Other gastrointestinal disorders (1 source) Change in bowel habit; Translations: [Bowel habit changes] Onset: 3 Episodic Other gastrointestinal disorders (1 source) Dysphagia, unspecified; Translations: [Dysphagia, unspecified type] Onset: 3 Episodic Other infections; including parasitic (1 source) Personal history of other infectious and parasitic diseases; Translations: [History of Clostridium difficile colitis] Onset: 3 Episodic Other lower respiratory disease (1 source) Shortness of breath; Translations: [Shortness of breath] Onset: 3 Episodic Other lower respiratory disease (1 source) Wheezing; Translations: [Wheezing] Onset: 3 Episodic Other lower respiratory disease (1 source) Pleurodynia; Translations: [Rib tenderness] Onset: 3 Episodic Other non-epithelial cancer of skin (20 sources) Basal cell carcinoma of skin; Translations: [Basal cell carcinoma of skin, unspecified] Onset: 2 Episodic Other screening for suspected conditions (not mental disorders or infectious disease) (6 sources) Patient encounter status; Translations: [Encounter for screening mammogram for malignant neoplasm of breast] Onset: 3 Episodic Phlebitis; thrombophlebitis and thromboembolism (20 sources) H/O: Deep vein thrombosis; Translations: [Personal history of other venous thrombosis and embolism] Onset: 6 11-10-2015 Episodic Pneumonia (except that caused by tuberculosis or sexually transmitted disease) (6 sources) Infective pneumonia; Translations: [Pneumonia, unspecified organism] Onset: 3 Episodic Residual codes; unclassified (20 sources) Persistent insomnia; Translations: [Insomnia, unspecified] Onset: 7 09-25-2015 Episodic Residual codes; unclassified (1 source) Personal history of other medical treatment; Translations: [History of recent hospitalization] Onset: 3 Episodic Residual codes; unclassified (1 source) Localized edema; Translations: [Bilateral lower extremity edema] Onset: 3 Episodic Residual codes; unclassified (1 source) Chills (without fever); Translations: [Chills] Onset: 3 Episodic Screening and history of mental health and substance abuse codes (20 sources) Tobacco use and exposure - finding; Translations: [Personal history of nicotine dependence] Onset: 4 06-09-2013 Episodic Skin and subcutaneous tissue infections (1 source) Cellulitis of left lower limb; Translations: [Cellulitis of left lower extremity] Onset: 3 Episodic Spondylosis; intervertebral disc disorders; other back problems (1 source) Dorsalgia, unspecified; Translations: [Acute midline back pain, unspecified back location] Onset: 3 Episodic Results Test Name Value Interpretation Reference Range Facil ity Vital Signs Date Time Vital Sign Value Performing Clinician Annamaria domínguez 03-31-2023 11:39-0500 Body weight 61.24 kg Gwendolyn Older ROLL CHANGER.CMM PROGRAMMER Work Phone: [facility] 03-31-2023 11:39-0500 Diastolic blood pressure 60 mm[Hg] ROLL CHANGER.CMM PROGRAMMER Work Phone: [facility] 03-31-2023 11:39-0500 Heart rate 54 /min Gwendolyn Older ROLL CHANGER.CMM PROGRAMMER Work Phone: [facility] 03-31-2023 11:39-0500 Respiratory rate 16 /min Gwendolyn Older ROLL CHANGER.CMM PROGRAMMER Work Phone: [facility] 03-31-2023 11:39-0500 SaO2% (BldA) [Mass fraction] 94 % Gwendolyn Older ROLL CHANGER.CMM PROGRAMMER Work Phone: [facility] 03-31-2023 11:39-0500 Systolic blood pressure 118 mm[Hg] Gwendolyn Older ROLL CHANGER.CMM PROGRAMMER Work Phone: [facility] 03-04-2023 11:59-0400 Body height 157.5 cm Davin MetaC[employer]bow PA-C Work Phone: [facility] 03-04-2023 11:59-0400 Body temperature 97.81 [degF] Davin MetaC[employer]bow PA-C Work Phone: [facility] 03-04-2023 11:59-0400 Body weight 63.96 kg Davin Denbow PA-C Work Phone: [facility] 03-04-2023 11:59-0400 Diastolic blood pressure 70 mm[Hg] Davin Denbow PA-C Work Phone: [facility] 03-04-2023 11:59-0400 Heart rate 61 /min Davin Denbow PA-C Work Phone: [facility] 03-04-2023 11:59-0400 Respiratory rate 12 /min Davin Denbow PA-C Work Phone: [facility] 03-04-2023 11:59-0400 SaO2% (BldA) [Mass fraction] 96 % Davin Denbow PA-C Work Phone: [facility] 03-04-2023 11:59-0400 Systolic blood pressure 138 mm[Hg] Davin Denbow PA-C Work Phone: [facility] 02-10-2023 13:26-0400 Body weight 62.6 kg Gwendolyn Older ROLL CHANGER.CMM PROGRAMMER Work Phone: [facility] 02-10-2023 13:26-0400 Diastolic blood pressure 78 mm[Hg] Gwendolyn Older ROLL CHANGER.CMM PROGRAMMER Work Phone: [facility] 02-10-2023 13:26-0400 Heart rate 63 /min Gwendolyn Older ROLL CHANGER.CMM PROGRAMMER Work Phone: [facility] 02-10-2023 13:26-0400 Respiratory rate 16 /min Gwendolyn Older ROLL CHANGER.CMM PROGRAMMER Work Phone: [facility] 02-10-2023 13:26-0400 SaO2% (BldA) [Mass fraction] 96 % Gwendolyn Older ROLL CHANGER.CMM PROGRAMMER Work Phone: [facility] 02-10-2023 13:26-0400 Systolic blood pressure 146 mm[Hg] Gwendolyn Older ROLL CHANGER.CMM PROGRAMMER Work Phone: [facility] 01-28-2023 19:18-0400 Body height 157.5 cm Phil Oden MD Work Phone: [facility] 01-28-2023 19:18-0400 Body weight 62.14 kg Phil Oden MD Work Phone: [facility] 01-28-2023 19:18-0400 Diastolic blood pressure 78 mm[Hg] Phil Oden MD Work Phone: [facility] 01-28-2023 19:18-0400 Heart rate 58 /min Phil Oden MD Work Phone: [facility] 01-28-2023 19:18-0400 Respiratory rate 16 /min Phil Oden MD Work Phone: [facility] 01-28-2023 19:18-0400 SaO2% (BldA) [Mass fraction] 94 % Phil Oden MD Work Phone: [facility] 01-28-2023 19:18-0400 Systolic blood pressure 130 mm[Hg] Phil Oden MD Work Phone: [facility] 01-27-2023 12:39-0400 Body height 152 cm Sylvia Gamboa MD Work Phone: [facility] 01-27-2023 12:39-0400 Body weight 61.69 kg Sylvia Gamboa MD Work Phone: [facility] 01-27-2023 12:39-0400 Diastolic blood pressure 78 mm[Hg] Sylvia Gamboa MD Work Phone: [facility] 01-27-2023 12:39-0400 Heart rate 58 /min Sylvia Gamboa MD Work Phone: [facility] 01-27-2023 12:39-0400 Respiratory rate 14 /min Sylvia Gamboa MD Work Phone: [facility] 01-27-2023 12:39-0400 SaO2% (BldA) [Mass fraction] 98 % Sylvia Gamboa MD Work Phone: [facility] 01-27-2023 12:39-0400 Systolic blood pressure 130 mm[Hg] Sylvia Gamboa MD Work Phone: [facility] 01-23-2023 14:06-0400 Diastolic blood pressure 62 mm[Hg] Gwendolyn Older ROLL CHANGER.CMM PROGRAMMER Work Phone: [facility] 01-23-2023 14:06-0400 Systolic blood pressure 136 mm[Hg] Gwendolyn Older ROLL CHANGER.CMM PROGRAMMER Work Phone: [facility] 01-23-2023 14:05-0400 Body temperature 97.2 [degF] Gwendolyn Older ROLL CHANGER.CMM PROGRAMMER Work Phone: [facility] 01-23-2023 14:05-0400 Body weight 62.14 kg Gwendolyn Older ROLL CHANGER.CMM PROGRAMMER Work Phone: [facility] 01-23-2023 14:05-0400 Heart rate 49 /min Gwendolyn Older ROLL CHANGER.CMM PROGRAMMER Work Phone: [facility] 01-23-2023 14:05-0400 Respiratory rate 16 /min Gwendolyn Older ROLL CHANGER.CMM PROGRAMMER Work Phone: [facility] 01-23-2023 14:05-0400 SaO2% (BldA) [Mass fraction] 92 % Gwendolyn Older ROLL CHANGER.CMM PROGRAMMER Work Phone: [facility] 01-10-2023 14:45-0400 Body height 157.5 cm Gwendolyn Older ROLL CHANGER.CMM PROGRAMMER Work Phone: [facility] 01-10-2023 14:45-0400 Body weight 63.05 kg Gwendolyn Older ROLL CHANGER.CMM PROGRAMMER Work Phone: [facility] 01-10-2023 14:45-0400 Diastolic blood pressure 62 mm[Hg] Gwendolyn Older ROLL CHANGER.CMM PROGRAMMER Work Phone: [facility] 01-10-2023 14:45-0400 Heart rate 102 /min Gwendolyn Older ROLL CHANGER.CMM PROGRAMMER Work Phone: [facility] 01-10-2023 14:45-0400 Respiratory rate 14 /min Gwendolyn Older ROLL CHANGER.CMM PROGRAMMER Work Phone: [facility] 09-01-2023 14:45-0400 SaO2% (BldA) [Mass fraction] 95 % Gwendolyn Older ROLL CHANGER.CMM PROGRAMMER Work Phone: [facility] 01-10-2023 14:45-0400 Systolic blood pressure 130 mm[Hg] Gwendolyn Older ROLL CHANGER.CMM PROGRAMMER Work Phone: [facility] 01-03-2023 14:31-0400 Body height 157.5 cm Gwendolyn Older ROLL CHANGER.CMM PROGRAMMER Work Phone: [facility] 01-03-2023 14:31-0400 Body weight 62.14 kg Gwendolyn Older ROLL CHANGER.CMM PROGRAMMER Work Phone: [facility] 01-03-2023 14:31-0400 Diastolic blood pressure 68 mm[Hg] Gwendolyn Older ROLL CHANGER.CMM PROGRAMMER Work Phone: [facility] 01-03-2023 14:31-0400 Heart rate 69 /min Gwendolyn Older ROLL CHANGER.CMM PROGRAMMER Work Phone: [facility] 01-03-2023 14:31-0400 Respiratory rate 18 /min Gwendolyn Older ROLL CHANGER.CMM PROGRAMMER Work Phone: [facility] 01-03-2023 14:31-0400 SaO2% (BldA) [Mass fraction] 92 % Gwendolyn Older ROLL CHANGER.CMM PROGRAMMER Work Phone: [facility] 01-03-2023 14:31-0400 Systolic blood pressure 130 mm[Hg] Gwendolyn Older ROLL CHANGER.CMM PROGRAMMER Work Phone: [facility] 12-26-2022 12:40-0400 Body temperature 97.3 [degF] Gwendolyn Older ROLL CHANGER.CMM PROGRAMMER Work Phone: [facility] 12-26-2022 12:40-0400 Body weight 62.6 kg Gwendolyn Older ROLL CHANGER.CMM PROGRAMMER Work Phone: [facility] 12-26-2022 12:40-0400 Diastolic blood pressure 80 mm[Hg] Gwendolyn Older ROLL CHANGER.CMM PROGRAMMER Work Phone: [facility] 12-26-2022 12:40-0400 Heart rate 56 /min Gwendolyn Older ROLL CHANGER.CMM PROGRAMMER Work Phone: [facility] 12-26-2022 12:40-0400 Respiratory rate 16 /min Gwendolyn Older ROLL CHANGER.CMM PROGRAMMER Work Phone: [facility] 12-26-2022 12:40-0400 SaO2% (BldA) [Mass fraction] 96 % Gwendolyn Older ROLL CHANGER.CMM PROGRAMMER Work Phone: [facility] 12-26-2022 12:40-0400 Systolic blood pressure 142 mm[Hg] Gwendolyn Older ROLL CHANGER.CMM PROGRAMMER Work Phone: [facility] 12-12-2022 11:40-0400 Body temperature 98.01 [degF] Gwendolyn Older ROLL CHANGER.CMM PROGRAMMER Work Phone: [facility] 12-12-2022 11:40-0400 Body weight 64.41 kg Gwendolyn Older ROLL CHANGER.CMM PROGRAMMER Work Phone: [facility] 12-12-2022 11:40-0400 Diastolic blood pressure 72 mm[Hg] Gwendolyn Older ROLL CHANGER.CMM PROGRAMMER Work Phone: [facility] 12-12-2022 11:40-0400 Heart rate 56 /min Gwendolyn Older ROLL CHANGER.CMM PROGRAMMER Work Phone: [facility] 12-12-2022 11:40-0400 Respiratory rate 16 /min Gwendolyn Older ROLL CHANGER.CMM PROGRAMMER Work Phone: [facility] 12-12-2022 11:40-0400 SaO2% (BldA) [Mass fraction] 94 % Gwendolyn Older ROLL CHANGER.CMM PROGRAMMER Work Phone: [facility] 12-12-2022 11:40-0400 Systolic blood pressure 136 mm[Hg] Gwendolyn Older ROLL CHANGER.CMM PROGRAMMER Work Phone: [facility] 10-31-2022 09:04-0400 Body weight 61.69 kg Brandon Manley MD Work Phone: [facility] 10-31-2022 09:04-0400 Diastolic blood pressure 70 mm[Hg] Brandon Manley MD Work Phone: [facility] 10-31-2022 09:04-0400 Heart rate 54 /min Brandon Manley MD Work Phone: [facility] 10-31-2022 09:04-0400 Respiratory rate 16 /min Brandon Manley MD Work Phone: [facility] 10-31-2022 09:04-0400 SaO2% (BldA) [Mass fraction] 97 % Brandon Manley MD Work Phone: [facility] 10-31-2022 09:04-0400 Systolic blood pressure 130 mm[Hg] Brandon Manley MD Work Phone: [facility] 10-01-2022 10:43-0400 Diastolic blood pressure 66 mm[Hg] Zuleyma Meredith DO Work Phone: [facility] 10-01-2022 10:43-0400 Heart rate 54 /min Zuleyma Meredith DO Work Phone: [facility] 10-01-2022 10:43-0400 SaO2% (BldA) [Mass fraction] 97 % Zuleyma Meredith DO Work Phone: [facility] 10-01-2022 10:43-0400 Systolic blood pressure 140 mm[Hg] Zuleyma Meredith DO Work Phone: [facility] 09-13-2022 10:46-0400 Diastolic blood pressure 53 mm[Hg] Talia Haque MD Work Phone: [facility] 09-13-2022 10:46-0400 Heart rate 46 /min Talia Haque MD Work Phone: [facility] 09-13-2022 10:46-0400 Respiratory rate 16 /min Talia Haque MD Work Phone: [facility] 09-13-2022 10:46-0400 SaO2% (BldA) [Mass fraction] 96 % Talia Haque MD Work Phone: [facility] 09-13-2022 10:46-0400 Systolic blood pressure 180 mm[Hg] Talia Haque MD Work Phone: [facility] 09-03-2022 10:30-0400 Body height 157.5 cm Zuleyma Meredith DO Work Phone: [facility] 09-03-2022 10:30-0400 Body weight 60.33 kg Zuleyma Meredith DO Work Phone: [facility] 09-03-2022 10:30-0400 Diastolic blood pressure 62 mm[Hg] Zuleyma Meredith DO Work Phone: [facility] 09-03-2022 10:30-0400 Heart rate 62 /min Zuleyma Meredith DO Work Phone: [facility] 09-03-2022 10:30-0400 SaO2% (BldA) [Mass fraction] 96 % Zuleyma Meredith DO Work Phone: [facility] 09-03-2022 10:30-0400 Systolic blood pressure 118 mm[Hg] Zuleyma Meredith DO Work Phone: [facility] 08-29-2022 08:17-0400 Body temperature 97.59 [degF] Brandon Manley MD Work Phone: [facility] 08-29-2022 08:17-0400 Body weight 60.78 kg Brandon Manley MD Work Phone: [facility] 08-29-2022 08:17-0400 Diastolic blood pressure 60 mm[Hg] Brandon Manley MD Work Phone: [facility] 08-29-2022 08:17-0400 Heart rate 60 /min Brandon Manley MD Work Phone: [facility] 08-29-2022 08:17-0400 Respiratory rate 16 /min Brandon Manley MD Work Phone: [facility] 08-29-2022 08:17-0400 SaO2% (BldA) [Mass fraction] 99 % Brandon Manley MD Work Phone: [facility] 08-29-2022 08:17-0400 Systolic blood pressure 116 mm[Hg] Brandon Manley MD Work Phone: [facility] 07-18-2022 10:34-0500 Body temperature 97.11 [degF] Katheryn Stokes MD Work Phone: [facility] 07-18-2022 10:34-0500 Diastolic blood pressure 78 mm[Hg] Katheryn Stokes MD Work Phone: [facility] 07-18-2022 10:34-0500 Heart rate 121 /min Katheryn Stokes MD Work Phone: [facility] 07-18-2022 10:34-0500 SaO2% (BldA) [Mass fraction] 95 % Katheryn Stokes MD Work Phone: [facility] 07-18-2022 10:34-0500 Systolic blood pressure 118 mm[Hg] Katheryn Stokes MD Work Phone: [facility] 06-18-2022 14:41-0500 Body height 157.5 cm Brandon Manley MD Work Phone: [facility] 06-18-2022 14:41-0500 Body temperature 97.5 [degF] Brandon Manley MD Work Phone: [facility] 06-18-2022 14:41-0500 Body weight 61.69 kg Brandon Manley MD Work Phone: [facility] 06-18-2022 14:41-0500 Diastolic blood pressure 60 mm[Hg] Brandon Manley MD Work Phone: [facility] 06-18-2022 14:41-0500 Heart rate 53 /min Brandon Manley MD Work Phone: [facility] 06-18-2022 14:41-0500 Respiratory rate 12 /min Brandon Manley MD Work Phone: [facility] 06-18-2022 14:41-0500 SaO2% (BldA) [Mass fraction] 95 % Brandon Manley MD Work Phone: [facility] 06-18-2022 14:41-0500 Systolic blood pressure 132 mm[Hg] Brandon Manley MD Work Phone: [facility] 06-08-2022 10:17-0500 Body temperature 97.81 [degF] Brandon Manley MD Work Phone: [facility] 06-08-2022 10:17-0500 Body weight 61.24 kg Brandon Manley MD Work Phone: [facility] 06-08-2022 10:17-0500 Diastolic blood pressure 68 mm[Hg] Brandon Manley MD Work Phone: [facility] 06-08-2022 10:17-0500 Heart rate 56 /min Brandon Manley MD Work Phone: [facility] 06-08-2022 10:17-0500 SaO2% (BldA) [Mass fraction] 96 % Brandon Manley MD Work Phone: [facility] 06-08-2022 10:17-0500 Systolic blood pressure 158 mm[Hg] Brandon Manley MD Work Phone: [facility] 05-23-2022 14:10-0500 Body height 157.5 cm Katheryn Stokes MD Work Phone: [facility] 05-23-2022 14:10-0500 Body temperature 97.9 [degF] Katheryn Stokes MD Work Phone: [facility] 05-23-2022 14:10-0500 Body weight 61.51 kg Katheryn Stokes MD Work Phone: [facility] 05-23-2022 14:10-0500 Diastolic blood pressure 72 mm[Hg] Katheryn Stokes MD Work Phone: [facility] 05-23-2022 14:10-0500 Heart rate 62 /min Katheryn Stokes MD Work Phone: [facility] 05-23-2022 14:10-0500 SaO2% (BldA) [Mass fraction] 95 % Katheryn Stokes MD Work Phone: [facility] 05-23-2022 14:10-0500 Systolic blood pressure 124 mm[Hg] Katheryn Stokes MD Work Phone: [facility] 05-22-2022 13:55-0500 Diastolic blood pressure 70 mm[Hg] Gwendolyn Older ROLL CHANGER.CMM PROGRAMMER Work Phone: [facility] 05-22-2022 13:55-0500 Systolic blood pressure 129 mm[Hg] Gwendolyn Older ROLL CHANGER.CMM PROGRAMMER Work Phone: [facility] 05-22-2022 13:01-0500 Body temperature 97.81 [degF] Gwendolyn Older ROLL CHANGER.CMM PROGRAMMER Work Phone: [facility] 05-22-2022 13:01-0500 Body weight 60.78 kg Gwendolyn Older ROLL CHANGER.CMM PROGRAMMER Work Phone: [facility] 05-22-2022 13:01-0500 Heart rate 56 /min Gwendolyn Older ROLL CHANGER.CMM PROGRAMMER Work Phone: [facility] 05-22-2022 13:01-0500 Respiratory rate 16 /min Gwendolyn Older ROLL CHANGER.CMM PROGRAMMER Work Phone: [facility] 05-22-2022 13:01-0500 SaO2% (BldA) [Mass fraction] 99 % Gwendolyn Older ROLL CHANGER.CMM PROGRAMMER Work Phone: [facility] 05-15-2022 11:38-0500 Body temperature 97.59 [degF] Gwendolyn Older ROLL CHANGER.CMM PROGRAMMER Work Phone: [facility] 05-15-2022 11:38-0500 Body weight 61.24 kg Gwendolyn Older ROLL CHANGER.CMM PROGRAMMER Work Phone: [facility] 05-15-2022 11:38-0500 Diastolic blood pressure 70 mm[Hg] Gwendolyn Older ROLL CHANGER.CMM PROGRAMMER Work Phone: [facility] 05-15-2022 11:38-0500 Heart rate 53 /min Gwendolyn Older ROLL CHANGER.CMM PROGRAMMER Work Phone: [facility] 05-15-2022 11:38-0500 Respiratory rate 16 /min Gwendolyn Older ROLL CHANGER.CMM PROGRAMMER Work Phone: [facility] 05-15-2022 11:38-0500 SaO2% (BldA) [Mass fraction] 95 % Gwendolyn Older ROLL CHANGER.CMM PROGRAMMER Work Phone: [facility] 05-15-2022 11:38-0500 Systolic blood pressure 152 mm[Hg] Gwendolyn Older ROLL CHANGER.CMM PROGRAMMER Work Phone: [facility] 04-29-2022 14:04-0500 Body temperature 99.81 [degF] Hodan Rodney ROLL CHANGER.CMM PROGRAMMER Work Phone: [facility] 04-29-2022 14:04-0500 Body weight 59.88 kg Hodan Rodney ROLL CHANGER.CMM PROGRAMMER Work Phone: [facility] 04-29-2022 14:04-0500 Diastolic blood pressure 64 mm[Hg] Hodan Rodney ROLL CHANGER.CMM PROGRAMMER Work Phone: [facility] 04-29-2022 14:04-0500 Heart rate 77 /min Hodan Rodney ROLL CHANGER.CMM PROGRAMMER Work Phone: [facility] 04-29-2022 14:04-0500 Respiratory rate 28 /min Hodan Rodney ROLL CHANGER.CMM PROGRAMMER Work Phone: [facility] 04-29-2022 14:04-0500 SaO2% (BldA) [Mass fraction] 97 % Hodan Rodney ROLL CHANGER.CMM PROGRAMMER Work Phone: [facility] 04-29-2022 14:04-0500 Systolic blood pressure 120 mm[Hg] Hodan Rodney ROLL CHANGER.CMM PROGRAMMER Work Phone: [facility] 03-18-2022 13:56-0500 Body temperature 97.59 [degF] Gwendolyn Older ROLL CHANGER.CMM PROGRAMMER Work Phone: [facility] 03-18-2022 13:56-0500 Body weight 60.78 kg Gwendolyn Older ROLL CHANGER.CMM PROGRAMMER Work Phone: [facility] 03-18-2022 13:56-0500 Diastolic blood pressure 66 mm[Hg] Gwendolyn Older ROLL CHANGER.CMM PROGRAMMER Work Phone: [facility] 03-18-2022 13:56-0500 Heart rate 66 /min Gwendolyn Older ROLL CHANGER.CMM PROGRAMMER Work Phone: [facility] 03-18-2022 13:56-0500 Respiratory rate 16 /min Gwendolyn Older ROLL CHANGER.CMM PROGRAMMER Work Phone: [facility] 03-18-2022 13:56-0500 SaO2% (BldA) [Mass fraction] 96 % Gwendolyn Older ROLL CHANGER.CMM PROGRAMMER Work Phone: [facility] 03-18-2022 13:56-0500 Systolic blood pressure 132 mm[Hg] Gwendolyn Older ROLL CHANGER.CMM PROGRAMMER Work Phone: [facility] 02-22-2022 14:30-0400 Body temperature 97.3 [degF] Brandon Manley MD Work Phone: [facility] 02-22-2022 14:30-0400 Body weight 59.42 kg Brandon Manley MD Work Phone: [facility] 02-22-2022 14:30-0400 Diastolic blood pressure 78 mm[Hg] Brandon Manley MD Work Phone: [facility] 02-22-2022 14:30-0400 Heart rate 60 /min Brandon Manley MD Work Phone: [facility] 02-22-2022 14:30-0400 Respiratory rate 16 /min Brandon Manley MD Work Phone: [facility] 02-22-2022 14:30-0400 SaO2% (BldA) [Mass fraction] 96 % Brandon Manley MD Work Phone: [facility] 02-22-2022 14:30-0400 Systolic blood pressure 124 mm[Hg] Brandon Manley MD Work Phone: [facility] 01-21-2022 12:03-0400 Body weight 58.97 kg Brandon Manley MD Work Phone: [facility] 01-21-2022 12:03-0400 Diastolic blood pressure 68 mm[Hg] Brandon Manley MD Work Phone: [facility] 01-21-2022 12:03-0400 Heart rate 56 /min Brandon Manley MD Work Phone: [facility] 01-21-2022 12:03-0400 Respiratory rate 16 /min Brandon Manley MD Work Phone: [facility] 01-21-2022 12:03-0400 Systolic blood pressure 138 mm[Hg] Brandon Manley MD Work Phone: [facility] 12-24-2021 08:03-0400 Body height 154.9 cm Pacc 1 Work Phone: [facility] 12-24-2021 08:03-0400 Body temperature 97.11 [degF] Pacc 1 Work Phone: [facility] 12-24-2021 08:03-0400 Body weight 60.78 kg Pacc 1 Work Phone: [facility] 12-24-2021 08:03-0400 Diastolic blood pressure 64 mm[Hg] Pacc 1 Work Phone: [facility] 12-24-2021 08:03-0400 Heart rate 58 /min Pacc 1 Work Phone: [facility] 12-24-2021 08:03-0400 Respiratory rate 16 /min Pacc 1 Work Phone: [facility] 12-24-2021 08:03-0400 SaO2% (BldA) [Mass fraction] 97 % Pacc 1 Work Phone: [facility] 12-24-2021 08:03-0400 Systolic blood pressure 126 mm[Hg] Pacc 1 Work Phone: [facility] 09-21-2021 11:39-0400 Body weight 59.42 kg Lindsay Zee MD Work Phone: [facility] 09-21-2021 11:39-0400 Diastolic blood pressure 68 mm[Hg] Lindsay Zee MD Work Phone: [facility] 09-21-2021 11:39-0400 Systolic blood pressure 136 mm[Hg] Lindsay Zee MD Work Phone: [facility] Encounters Encounter Date Encounter Type Care Provider Facility Start: 05-30-2023 End: 05-30-2023 ambulatory KATHERYN STOKES Facility:[facility] Start: 05-23-2023 End: 05-23-2023 ambulatory SYLVIA GAMBOA Facility:[facility] Start: 05-01-2023 E-mail encounter fro m caregiver Joshua James Nettles DO Work Phone: [facility] Start: 05-01-2023 Patient encounter procedure Joshua Nettles DO Work Phone: Cardiology Procedures Date Procedure Procedure Detail Performing Clinician Start: 02-10-2023 INFLUENZA VACCINE, P RSV FREE, AGE 65+ YR, HIGH DOSE, QUADRIVALENT (FLUZONE HIGH-DOSE) Gwendolyn Ballard APRN.CMM PROGRAMMER Work Phone: Start: 01-27-2023 Co diffusing capacity E gudelia Gamboa MD Work Phone: Start: 01-10-2023 Follow-up visit Follow Up GWENDOLYN PASCUAL Start: 12-26-2022 Ct abdomen & pelvis w/contrast material Gwendolyn Ballard APRN.CMM PROGRAMMER Work Phone: Start: 12-12-2022 Sars-cov-2 detection by dna/rna Gwendloyn Ballard APRN.CMM PROGRAMMER Work Phone: Start: 12-12-2022 STREP A MOLECULAR (POC) Gwendolyn Ballard APRN.CMM PROGRAMMER Work Phone: Start: 06-11-2022 End: 06-11-2022 Colonoscopy Brandon Manley MD Work Phone: Start: 05-28-2022 Ct abdomen & pelvis w/o contrast material Katheryn Stokes MD Work Phone: Start: 05-15-2022 Urnls dip stick/tabl et rgnt auto w/o microscopy Gwendolyn Older ROLL CHANGER.CMM PROGRAMMER Work Phone: Start: 02-22-2022 STREP A MOLECULAR (POC) Brandon Manley MD Work Phone: Start: 01-21-2022 Urnls dip stick/tabl et rgnt auto w/o microscopy Brandon Manley MD Work Phone: Start: 01-21-2022 INFLUENZA SEASONAL QUADRIVALENT HIGH DOSE AGE 65+ Brandon Manley MD Work Phone: Start: 09-21-2021 Urnls dip stick/tabl et rgnt auto w/o microscopy Lindsay Cooper Zee MD Work Phone: Start: 04-30-2021 Adult depression scr eening assessment Gwendolyn Older ROLL CHANGER.CMM PROGRAMMER Work Phone: Start: 01-19-2020 Lipid 1996 panel - S rodolfo or Plasma Gwendolyn Older ROLL CHANGER.CMM PROGRAMMER Work Phone: Start: 01-14-2019 Mammography Gwendolyn Older ROLL CHANGER.CMM PROGRAMMER Work Phone: Start: 11-22-2015 Colonoscopy Gwendolyn Older ROLL CHANGER.CMM PROGRAMMER Work Phone: Plan of Treatment Date Care Activity Detail Author Start: 06-11-2032 Screening for malign ant neoplasm of colon [facility] Start: 07-08-2028 Tetanus vaccination Tetanus: Every 1 0yrs [facility] Start: 12-26-2025 DIABETES SCREEN DIABETES SCREEN [facility] Start: 12-26-2025 Diabetes Screening Diabetes Screenin g [facility] Start: 12-12-2025 DIABETES SCREEN DIABETES SCREEN [facility] Start: 05-15-2025 DIABETES SCREEN DIABETES SCREEN [facility] Start: 04-29-2025 DIABETES SCREEN DIABETES SCREEN [facility] Start: 03-15-2025 DIABETES SCREEN DIABETES SCREEN [facility] Start: 01-18-2025 Lipid 1996 panel - S rodolfo or Plasma Lipid Screening [facility] Start: 01-18-2025 Lipid panel Lipid Screening [facility] Start: 01-18-2025 LIPID SCREEN LIPID SCREEN [facility] Start: 12-24-2024 DIABETES SCREEN DIABETES SCREEN [facility] Start: 09-06-2024 DIABETES SCREEN DIABETES SCREEN [facility] Start: 06-11-2024 Colonoscopy COLONOSCOPY [facility] Start: 06-11-2024 COLORECTAL CANCER SCREENING COLORECTAL CANCER SCREENING [facility] Start: 06-11-2024 Screening for malign ant neoplasm of colon [facility] Start: 03-31-2024 Annual PCP Team Database Admin binu Disease Visit Annual PCP Team Chronic Disease Visit [facility] Start: 03-31-2024 BP Controlled (<130/80) BP Controlle d (<130/80) [facility] Start: 03-31-2024 RSV Vaccine (1 - 1-d ose 60+ series) RSV Vaccine (1 - 1-dose 60+ series) [facility] Immunizations Immunization Date Immunization Notes Care Provider Fa lb 02-10-2023 influenza (HD-IIV4) vaccine, age 65+ yr, high dose, quadrivalent, PF (FLUZONE HIGH-DOSE) Gwendolyn Older ROLL CHANGER.CMM PROGRAMMER Work Phone: [facility] 01-21-2022 influenza, high-dose , quadrivalent vaccine (FLUZONE HIGH DOSE QUADRIVALENT) Brandon Manley MD Work Phone: [facility] Work Phone: 01-21-2022 influenza virus vacc ine, unspecified formulation Gwendolyn Older ROLL CHANGER.CMM PROGRAMMER Work Phone: [facility] 09-19-2021 zoster vaccine recombinant Lindsay Zee MD Work Phone: [facility] 02-03-2021 influenza, high-dose , quadrivalent vaccine (FLUZONE HIGH DOSE QUADRIVALENT) Gwendolyn Older ROLL CHANGER.CMM PROGRAMMER Work Phone: [facility] 06-13-2020 COVID-19 vaccine, fu ll dose (MODERNA) Gwendolyn Older ROLL CHANGER.CMM PROGRAMMER Work Phone: [facility] Work Phone: 05-16-2020 COVID-19 vaccine, fu ll dose (MODERNA) Gwendolyn Older ROLL CHANGER.CMM PROGRAMMER Work Phone: [facility] Work Phone: 03-04-2020 influenza, high-dose , quadrivalent vaccine (FLUZONE HIGH DOSE QUADRIVALENT) Gwendolyn Older ROLL CHANGER.CMM PROGRAMMER Work Phone: [facility] Work Phone: 02-12-2019 influenza, high dose seasonal, preservative-free Gwendolyn Older ROLL CHANGER.CMM PROGRAMMER Work Phone: [facility] 07-08-2018 tetanus and diphther ia toxoids, adsorbed, preservative free, for adult use (5 Lf of tetanus toxoid and 2 Lf of diphtheria toxoid) Gwendolyn Older ROLL CHANGER.[facility] Work Phone: [facility] Work Phone: 01-23-2018 influenza, high dose seasonal, preservative-free Gwendolyn Older ROLL CHANGER.CMM PROGRAMMER Work Phone: [facility] Work Phone: 02-03-2016 influenza, high dose seasonal, preservative-free Gwendolyn Older ROLL CHANGER.CMM PROGRAMMER Work Phone: [facility] 04-28-2015 pneumococcal conjuga te vaccine, 13 valent Gwendolyn Older ROLL CHANGER.CMM PROGRAMMER Work Phone: [facility] 02-18-2015 influenza, high dose seasonal, preservative-free Gwendolyn Older ROLL CHANGER.CMM PROGRAMMER Work Phone: [facility] Work Phone: 02-23-2014 influenza, seasonal, injectable Gwendolyn Older ROLL CHANGER.CMM PROGRAMMER Work Phone: [facility] 12-30-2013 pneumococcal polysaccharide vaccine, 23 valent Gwendolyn Older ROLL CHANGER.CMM PROGRAMMER Work Phone: [facility] 03-06-2013 influenza virus vacc ine, unspecified formulation Gwendolyn Older ROLL CHANGER.CMM PROGRAMMER Work Phone: [facility] Work Phone: 02-29-2012 influenza virus vacc ine, unspecified formulation Gwendolyn Older ROLL CHANGER.CMM PROGRAMMER Work Phone: [facility] Work Phone: 03-12-2011 influenza virus vacc ine, unspecified formulation Gwendolyn Older ROLL CHANGER.CMM PROGRAMMER Work Phone: [facility] 12-25-2010 zoster vaccine, live Gwendolyn Old er ROLL CHANGER.CMM PROGRAMMER Work Phone: [facility] 08-20-2010 hepatitis B vaccine, adult dosage Gwendolyn Older ROLL CHANGER.CMM PROGRAMMER Work Phone: [facility] 03-01-2010 influenza virus vacc ine, unspecified formulation Gwendolyn Older ROLL CHANGER.CMM PROGRAMMER Work Phone: [facility] Work Phone: 02-19-2010 hepatitis B vaccine, adult dosage Gwendolyn Older ROLL CHANGER.CMM PROGRAMMER Work Phone: [facility] Work Phone: 01-02-2010 hepatitis B immune globulin Gwendolyn Older ROLL CHANGER.CMM PROGRAMMER Work Phone: [facility] 02-15-2009 influenza virus vacc ine, unspecified formulation Gwendolyn Older ROLL CHANGER.CMM PROGRAMMER Work Phone: [facility] Work Phone: 03-16-2008 influenza virus vacc ine, unspecified formulation Gwendolyn Older ROLL CHANGER.CMM PROGRAMMER Work Phone: [facility] 03-26-2007 influenza virus vacc ine, unspecified formulation Gwendolyn Older ROLL CHANGER.CMM PROGRAMMER Work Phone: [facility] Work Phone: 03-26-2007 pneumococcal polysaccharide vaccine, 23 valent Gwendolyn Older ROLL CHANGER.CMM PROGRAMMER Work Phone: [facility] Work Phone: 07-16-2006 tetanus and diphther ia toxoids, adsorbed, preservative free, for adult use (2 Lf of tetanus toxoid and 2 Lf of diphtheria toxoid) Gwendolyn Older ROLL CHANGER.CMM PROGRAMMER Work Phone: [facility] Payers Date Payer Category Payer Medicare [id number] 2022 Medicare [id number] 2022 Private Health Insurance [id number] 2022 Private Health Insurance [id number] 2020 Unknown MMO MMO TPA [id number] 2020-Present [address] [place] [address] PPO [id number] 2020 Unknown ANTHEM BLUE CROS S AND BLUE SHIELD ANTHEM MEDIBLUE HMO [id number] 2020-Present [phone] [address] [place] [address] HMO [id number] 2020 Unknown [id number] 1945 Unknown [id number] 1945 Unknown [id number] Social History Date Type Detail Facility Start: 04-28-2015 End: 12-24-2021 Tobacco smoking status NHIS Ex-smoker [facility] Work Phone: End: 11-09-2005 History of tobacco use Current smoker [facility] Work Phone: End: 11-09-2005 History of tobacco use Cigarette Smoker [facility] Work Phone: Start: 07-10-2021 End: 10-10-2021 Alcohol intake Current drinker of alcohol (finding) [facility] Start: 06-27-2021 End: 02-22-2022 History SDOH Alcohol Frequency 1 [facility] Start: 07-05-2013 History SDOH Alcohol Comment mixed drink in p.m. [facility] Start: 06-27-2021 End: 04-15-2022 History SDOH Social Connections Phone 5 [facility] Start: 06-27-2021 End: 04-15-2022 History SDOH Social Connections Get Together 4 [facility] Start: 06-27-2021 End: 04-15-2022 History SDOH Social Connections Membership 2 [facility] Start: 06-27-2021 End: 04-15-2022 History SDOH Physical Activity MPS 15 [facility] Start: 1945 Sex Assigned At Female C [facility] Start: 08-28-2021 End: 09-13-2022 Exposure to SARS-CoV-2 (event) Not sure [facility] Start: 12-24-2021 End: 09-26-2022 Cigarettes smoked current (pack per day) - [facility] [place] Start: 12-24-2021 End: 09-13-2022 Tobacco use and exposure Smokeless tobacco non-user [facility] [place] Start: 12-24-2021 End: 03-31-2023 Alcohol intake Ex-drinker (finding) [facility] [place] Start: 12-24-2021 Tobacco Comment Stopped smoking 12/29 06 [facility] [place] Start: 04-15-2022 History SDOH Alcohol Std Drinks 0 [facility] [place] [facility] Start: 1945 Sex Assigned At Not on file [facility] Start: 04-15-2022 End: 09-26-2022 Gender identity Not on file [facility] [place] Start: 09-13-2022 Tobacco smoking stat [facility] Never smoked tobacco [facility] Start: 09-13-2022 Alcohol intake Lifetime non-d tristan (finding) [facility] Do you belong to any clubs or organizations such as jew groups, unions, fraternal or athletic groups, or school groups? No [facility] [place] Are you now , , , , never or living with a partner? [facility] [place] Frequency of Alcohol Consumption Not on file [facility] [place] How often do you hav e 6 or more drinks on 1 occasion? Never [facility] [place] Do you feel stress - tense, restless, nervous, or anxious, or unable to sleep at night because your mind is troubled all the time - these days [OSQ] Only a little [facility] (I/We) worried wheth er (my/our) food would run out before (I/we) got money to buy more. Never true [facility] [place] Start: 03-02-2020 Gender identity Identifies as female gender (finding) [facility] [place] Start: 03-02-2020 Sexual orientation Heterosexual (parris germain) [facility] [place] NEGATED: Highlighted rowStart: CECYF History of tobacco use Passive smoker [facility] Clinical Notes 11-22-2015 to 05-30-2023 Telephone Encounter - Felicitas Glover - 04/11/2023 8:24 AM ESTTelephone Encounter - Lorraine Zarco - 04/10/2023 2:52 PM Gwendolyn Cote APRN.CNP - 03/31/2023 12:01 PM ESTPatient Instructions Note Date & Type Note Facility 05-30-2023 Note [facility] 05-23-2023 Note [facility] 04-11-2023 Miscellaneous Notes Patient has been identified by name and date of : No Patient phones for refill(s): Requested Prescriptions Pending Prescriptions Disp Refills flecainide (TAMBOCOR) 100 mg tablet 180 tablet 2 Sig: Take 1 tablet by mouth two times a day. Date of last office visit in primary care: Visit date not found Date of next office visit in primary care: Visit date not found Last 2 Encounter Wt Readings: Date: Wt: 03/31/2023 61.2 kg (135 lb) 03/04/2023 64 kg (141 lb) Previous labs/tests for medication: Not applicable Please advise. Thank you. Felicitas Glover. Patient has been identified by name and date of : Yes Requested Prescriptions Pending Prescriptions Disp Refills flecainide (TAMBOCOR) 100 mg tablet 180 tablet 2 Sig: Take 1 tablet by mouth two times a day. RX INSTRUCTIONS: Patient aware RX will be sent to pharmacy. No need to notify patient. Lorraine Randle documented in this encounter [facility] [place] 03-31-2023 Note [facility] 03-31-2023 History of Present illness Narrative CC: Patient presents with: Follow Up HPI Elizabeth Delgado is a 77 year old female who presents today for routine follow up. Diagnosed with COVID 2 weeks ago. Friday after work she ended up with a fever of over 101, right ear pain, and needing her oxygen. Symptoms improved by next morning and has not needed her oxygen. Still with yellow sinus drainage and cough occasionally producing yellow sputum. No further shortness of breath, wheezing, fever, chills, fatigue, chest pain, edema, headache, palpitations, dizziness, weakness, fatigue, or syncope. Does have history of C-diff and finished her last treatment over 1 month ago which was for prophylaxis when on antibiotic treatment. No abdominal pain, diarrhea, nausea, or concern at this time. REVIEW OF SYSTEMS See HPI PAST MEDICAL HISTORY Diagnosis Date Anxiety Arthritis Atrial fibrillation (HCC) s/p ablation 07/2015 Backache, unspecified Cancer (HCC) Basal cell on forehead Carpal tunnel syndrome, bilateral Congestive heart failure (HCC) DVT (deep venous thrombosis) (HCC) remote Esophageal reflux History of cardioversion 10/31/2018 HTN (hypertension) Irritable bowel syndrome Left carotid bruit 09/14/2018 noted by cardiology Left ventricular systolic dysfunction 11/08/2016 PONV (postoperative nausea and vomiting) S/P cervical spinal fusion Scoliosis PAST SURGICAL HISTORY Procedure Laterality Date BREAST SURGERY HX Right Lumpectomy benign CHOLECYSTECTOMY 10/2016 COLONOSCOPY 06/11/2022 repeat prn COLONOSCOPY FLX DX W/COLLJ SPEC WHEN PFRMD 10/06/2013 Colonoscopy COLONOSCOPY FLX DX W/COLLJ SPEC WHEN PFRMD 11/22/2015 Colonoscopy CONIZATION OF CERVIX, LEEP CURETTAGE EGD 06/11/2022 EGD TRANSORAL BIOPSY SINGLE/MULTIPLE 02/08/2011 ESOPHAGOGASTRODUODENOSCOPY TRANSORAL DIAGNOSTIC 10/06/2013 EGD ESOPHAGOGASTRODUODENOSCOPY TRANSORAL DIAGNOSTIC 11/22/2015 EGD ESOPHAGOGASTRODUODENOSCOPY TRANSORAL DIAGNOSTIC 02/28/2016 EGD EYE SURGERY HX HERNIA REPAIR HX LIG/TRNSXJ FLP TUBE ABDL/VAG APPR UNI/BI Tubal ligation NEUROPLASTY &/TRANSPOS MEDIAN NRV CARPAL TUNNE 02/14/2012 Carpal tunnel decomp - right OOPHORECTOMY PARTIAL/TOTAL UNI/BI 07/17/2010 Oophorectomy - left Dr. Manuel Hoover - Dr. Alessio Dahl PAST SURGICAL HISTORY OF NECK SURGERY, anterior fusion PAST SURGICAL HISTORY OF Face lift PAST SURGICAL HISTORY OF back surgery PAST SURGICAL HISTORY OF bilat foot surgey, bunionectomy PAST SURGICAL HISTORY OF benign tumor removed from right breast PAST SURGICAL HISTORY OF 03/2011 B/L cataract surgery with implants- Dr Jacob Aguilar at [facility] PAST SURGICAL HISTORY OF 07/27/2015 cryo ablation, cardiac RPR UMBILICAL HRNA 5 YRS/> REDUCIBLE 07/17/2010 Hernia repair, umbilical >5yr [facility] Dr Manuel Hoover SHX COSMETIC SURGERY SKIN BIOPSY HX ALLERGIES Cardizem [Diltiazem Hcl], Codeine, Entex [Phenylephrine-Guaifenesin], Etodolac, Meloxicam, Naproxen, Surgical Tape Adhesives [Other], Trazodone, and Zantac [Ranitidine Hcl] MEDICATIONS valsartan (DIOVAN) 40 mg tablet Take 1 tablet by mouth once daily. sucralfate (CARAFATE) 100 mg/mL suspension Take 10 mL by mouth before meals and at bedtime. (560cc=2wks) diclofenac, EC, (VOLTAREN) 75 mg EC tablet Takes once daily PRN for acute pain/inflammation. Take with food. JARDIANCE 10 mg tablet Take 10 mg by mouth once daily. metoprolol succinate ER (TOPROL XL) 25 mg 24 hr tablet Take 0.5 tablets by mouth twice daily. izkvjhmvpzd-qqfvervgt-tkfltnyi (TRELEGY ELLIPTA) 100-62.5-25 mcg inhalation powder Inhale 1 Puff as instructed once daily. Ipratropium (ATROVENT) 17 mcg/actuation inhaler Inhale 2 Puffs as instructed every 6 hours as needed for wheezing/shortness of breath. famotidine (PEPCID) 20 mg tablet Take 1 tablet by mouth twice daily. flecainide (TAMBOCOR) 100 mg tablet Take 1 tablet by mouth twice daily. furosemide (LASIX) 40 mg tablet Take 1 tablet by mouth twice daily. (Patient taking differently: Take 40 mg by mouth once daily. Take another dose daily as needed for leg swelling) sucralfate (CARAFATE) 1 gram tablet Take 1 tablet by mouth before meals and at bedtime. apixaban (ELIQUIS) 5 mg tab(s) Take by mouth twice daily. Bifidobacterium infantis (ALIGN) 10.5 mg (10 million cell) chew Take 1 tablet by mouth once daily. potassium chloride ER (K-DUR, KLOR-CON) 20 mEq tablet Take 1 tablet by mouth twice daily. (Patient taking differently: Take 20 mEq by mouth once daily. Take extra dose daily when takes extra Lasix dose) melatonin 3 mg ODT Take 1 tablet by mouth daily at bedtime. MULTIVITAMIN WITH MINERALS (ONE-A-DAY 50 PLUS ORAL) Take by mouth. CALCIUM CARBONATE/VITAMIN D3 (VITAMIN D-3 ORAL) Take 1,000 mg by mouth five times daily. LLVJZCX-FINIIAMJU-SAPW ORAL Take by mouth. lidocaine (LIDODERM) 5 % Apply 1 Patch as directed every 24 hours. Apply patch for 12 hours, remove, and then wait 12 more hours before applying a new patch. Location: mid back (Patient not taking: Reported on 03/31/2023) FAMILY HISTORY Problem Relation Age of Onset Hypertension Mother Stroke Mother Coronary Artery Disease Father other (wilsons disease) Brother other (UMA'S DISEASE) Brother Liver dse, cirrhosis Social History Tobacco Use Smoking status: Former Packs/day: 2.00 Years: 35.00 Additional pack years: 0.00 Total pack years: 70.00 Types: Cigarettes Quit date: 11/09/2005 Years since quittin.4 Smokeless tobacco: Never Tobacco comments: Stopped smoking 12/2005 Vaping Use Vaping Use: Never used Substance Use Topics Alcohol use: Not Currently Drug use: No PHYSICAL EXAM BP 118/60 (BP Site: Left Arm, BP Position: Sitting, BP Cuff Size: Regular Adult) Pulse (!) 54 Resp 16 Wt 61.2 kg (135 lb) SpO2 94% BMI 24.69 kg/m General Appearance: well appearing, in no acute distress, alert Pysch: mood and affect broad and appropriate Skin: Skin color, texture, turgor normal for age; Eyes: conjunctiva pink and moist, no icterus, sclera white, non-injected Ears: external ears normal to inspection and palpation, canals clear, Left tympanic membrane normal. , Right tympanic membrane normal. , Nose/sinus: Nares normal. Septum midline. Mucosa normal. No drainage. Neck: Thyroid normal size and symmetric without palpable nodules, Neck supple, No adenopathy Oropharynx: tongue midline and normal, soft palate, uvula, and tonsils normal, palpation of salivary glands negative Lymph nodes: No cervical lymphadenopathy and No supraclavicular lymphadenopathy Lungs: Lungs clear to auscultation. No wheezing, rhonchi, rales. Heart: RRR without murmur, gallop, or rubs. No ectopy Health maintenance reviewed with patient: BP Controlled (<130/80) Never done RSV Vaccine(1 - 1-dose 60+ series) Never done DTaP,Tdap,Td Vaccine(1 - Tdap) due on 02/11/2024 Alpha-1 Antitrypsin Deficiency Screening due on 02/11/2024 Shingrix Vaccine(3 of 3) due on 02/11/2024 Covid-19 Vaccine( - season) due on 02/11/2024 Annual PCP Team Chronic Disease Visit due on 03/17/2024 Colorectal Cancer Screening due on 06/11/2024 Lipid Screening due on 01/18/2025 Diabetes Screening due on 12/26/2025 Bone Density Screening Completed Spirometry Completed Influenza Vaccine Completed Advance Directive Discussion Completed Depression Assessment Completed Hepatitis C Screening Completed Pneumococcal Vaccine: 65+ Completed HPV Vaccine Aged Out Mammogram Screening Discontinued DATA REVIEWED: No new labs ASSESSMENT/PLAN: 1. Acute non-recurrent sinusitis, unspecified location - ICD9: 461.9, ICD10: J01.90 (primary diagnosis) - symptoms improving. Antibiotic given to start only IF symptoms do not further improve or if they return. - flonase as ordered - Supportive care with plenty of fluids, rest, and analgesia prn. - Follow up in 3-5 days if symptoms persist or worsen. Prescription instructions reviewed with patient as applicable. Potential red flag symptoms discussed with the patient. Reviewed appropriate action plan to take if red flag symptoms occur. Patient agreeable to treatment plan. Gwendolyn Ballard APRN.CNP documented in this encounter [facility] [place] 03-24-2023 Miscellaneous Notes Patient has been identified by name and date of : Yes Patient phones for refill(s): Requested Prescriptions Pending Prescriptions Disp Refills sucralfate (CARAFATE) 100 mg/mL suspension 414 mL 5 Sig: Take 10 mL by mouth before meals and at bedtime. (560cc=2wks) Date of last office visit in primary care: 03/04/2023 Date of next office visit in primary care: 03/31/2023 Last 2 Encounter Wt Readings: Date: Wt: 03/04/2023 64 kg (141 lb) 02/10/2023 62.6 kg (138 lb) Previous labs/tests for medication: Not applicable Please advise. Thank you. Toshia Jaquez LPN. documented in this encounter [facility] [place] 03-24-2023 Note [facility] 03-24-2023 History of Present illness Narrative [facility] 02/26/2023: Recording time 5 hours 54 min Saturation < 88% 94 min Lowest saturation 68% Confirms need for nocturnal oxygen documented in this encounter [facility] [place] 03-17-2023 Note [facility] 03-17-2023 Instructions Lupe Ballard APRN.CMM PROGRAMMER - 03/17/2023 2:30 PM EST Fact Sheet for Patients And Caregivers LAGEVRIO (molnupiravir) capsules For Coronavirus Disease 2019 (COVID-19) What is the most important information I should know about LAGEVRIO? LAGEVRIO may cause serious side effects, including: LAGEVRIO may cause harm to your unborn baby. It is not known if LAGEVRIO will harm your baby if you take LAGEVRIO during . LAGEVRIO is not recommended for use in . LAGEVRIO has not been studied in . LAGEVRIO was studied in animals only. When LAGEVRIO was given to animals, LAGEVRIO caused harm to their unborn babies. You and your healthcare provider may decide that you should take LAGEVRIO during if there are no other COVID-19 treatment options approved or authorized by the FDA that are accessible or clinically appropriate for you. If you and your healthcare provider decide that you should take LAGEVRIO during , you and your healthcare provider should discuss the known and potential benefits and the potential risks of taking LAGEVRIO during . For individuals who are able to become : You should use a reliable method of control (contraception) consistently and correctly during treatment with LAGEVRIO and for 4 days after the last dose of LAGEVRIO. Talk to your healthcare provider about reliable control methods. Before starting treatment with LAGEVRIO your healthcare provider may do a test to see if you are before starting treatment with LAGEVRIO. Tell your healthcare provider right away if you become or think you may be during treatment with LAGEVRIO. Registry: There is a registry for individuals who take LAGEVRIO during . The purpose of this program is to collect information about the health of you and your baby. If you are or become during treatment with LAGEVRIO, you are encouraged to report your use of LAGEVRIO during to this registry at https://covid-pr.[employer].ReDigi or . For individuals who are sexually active with partners who are able to become : It is not known if LAGEVRIO can affect sperm. While the risk is regarded as low, animal studies to fully assess the potential for LAGEVRIO to affect the babies of males treated with LAGEVRIO have not been completed. A reliable method of control (contraception) should be used consistently and correctly during treatment with LAGEVRIO and for at least 3 months after the last dose. The risk to sperm beyond 3 months is not known. Studies to understand the risk to sperm beyond 3 months are ongoing. Talk to your healthcare provider about reliable control methods. Talk to your healthcare provider if you have questions or concerns about how LAGEVRIO may affect sperm. You are being given this fact sheet because your healthcare provider believes it is necessary to provide you with LAGEVRIO for the treatment of adults with a current diagnosis of mild-tomoderate coronavirus disease 2019 (COVID-19) who are at high risk for progression to severe COVID-19, including hospitalization or , and for whom other COVID-19 treatment options approved or authorized by the FDA are not accessible or clinically appropriate. Read this Fact Sheet for information about LAGEVRIO. Talk to your healthcare provider about your options if you have any questions. It is your choice to take LAGEVRIO. What is COVID-19? COVID-19 is caused by a virus called a coronavirus. You can get COVID-19 through close contact with another person who has the virus. COVID-19 illnesses have ranged from very trxh-jd-tcfynl, including illness resulting in . While information so far suggests that most COVID-19 illness is mild, serious illness can happen and may cause some of your other medical conditions to become worse. Older people and people of all ages with severe, long lasting (chronic) medical conditions like heart disease, lung disease and diabetes, for example seem to be at higher risk of being hospitalized for COVID-19. What is LAGEVRIO? LAGEVRIO is an investigational medicine used to treat adults with a current diagnosis of mild to moderate COVID-19: who are at high risk for progression to severe COVID-19 including hospitalization or , and for whom other COVID-19 treatment options approved or authorized by the FDA are not accessible or clinically appropriate. The FDA has authorized the emergency use of LAGEVRIO for the treatment of mild-tomoderate COVID-19 in adults under an EUA. For more information on EUA, see the What is an Emergency Use Authorization (EUA)? section at the end of this Fact Sheet. LAGEVRIO is not authorized: for use in people less than 18 years of age. for prevention of COVID-19. for people needing hospitalization for COVID-19. for use for longer than 5 consecutive days. What should I tell my healthcare provider before I take LAGEVRIO? Tell your healthcare provider if you: have any allergies are or plan to breastfeed have any serious illnesses Take any medicines including prescription, dmeo-aoa-becmawd medicines, vitamins, and herbal products. How do I take LAGEVRIO? Take LAGEVRIO exactly as your healthcare provider tells you to take it. Take 4 capsules of LAGEVRIO every 12 hours (for example, at 8 am and at 8 pm) Take LAGEVRIO for 5 days. It is important that you complete the full 5 days of treatment with LAGEVRIO. Do not stop taking LAGEVRIO before you complete the full 5 days of treatment, even if you feel better. Take LAGEVRIO with or without food. You should stay in isolation for as long as your healthcare provider tells you to. Talk to your healthcare provider if you are not sure about how to properly isolate while you have COVID-19. Swallow LAGEVRIO capsules whole. Do not open, break, or crush the capsules. If you cannot swallow capsules whole, tell your healthcare provider. If your healthcare provider prescribes LAGEVRIO and tells you to take or give a dose through a nasogastric (NG) or orogastric (OG) tube, follow the instructions below: How to take or give a dose of LAGEVRIO through a nasogastric (NG) or orogastric (OG) feeding tube. You must have an NG or OG that is size 12 Indian (FR) or larger. If you miss a dose of LAGEVRIO: If it has been less than 10 hours since the missed dose, take it as soon as you remember. If it has been more than 10 hours since the missed dose, skip the missed dose and take your dose at the next scheduled time. Do not double the dose of LAGEVRIO to make up for a missed dose. How to take or give a dose of LAGEVRIO through a nasogastric (NG) or orogastric (OG) feeding tube: Wash your hands well with soap and water. Gather the supplies you will need to take or give the prescribed dose of LAGEVRIO. 4 LAGEVRIO capsules 1 liquid measuring cup with mL markings to measure 40 mL of room temperature water 1 clean container with a lid 1 catheter tip syringe. Your healthcare provider should tell you what size catheter tip syringe you will need to take or give a dose of LAGEVRIO. Place the needed supplies on a clean work surface. Follow your healthcare provider s instructions on how to flush the NG or OG feeding tube. Flush the NG or OG feeding tube with 5 mL of water before taking or giving a dose of LAGEVRIO. Carefully open 4 LAGEVRIO capsules, one at a time, and empty the contents into a clean container. Use the liquid measuring cup to measure 40 mL of room temperature water and add to the container containing the capsule contents. Place the lid on the container. Shake to mix the capsule contents and water well for 3 minutes. The capsule contents may not dissolve completely. Remove the lid from the container and draw up all the LAGEVRIO and water mixture into a catheter tip syringe. Give all of the mixture right away through the NG or OG feeding tube. Do not keep the mixture for future use. If any capsule contents are left in the container: Add 10 mL of water to the container, and mix to loosen any capsule contents that are left in the container. Use the catheter tip syringe to draw up all of the mixture in the container. Give the mixture through the NG or OG feeding tube. Repeat this process as needed until you no longer see any capsule contents left in the container or catheter tip syringe. Use the same catheter tip syringe to flush the NG or OG feeding tube 2 times with 5 mL of water (10mL total). Rinse the container, lid and catheter tip syringe well with clean water after use. Place on a clean paper towel until next use. What are the important possible side effects of LAGEVRIO? See, What is the most important information I should know about LAGEVRIO? Allergic Reactions. Allergic reactions can happen in people taking LAGEVRIO, even after only 1 dose. Stop taking LAGEVRIO and call your healthcare provider right away if you get any of the following symptoms of an allergic reaction: hives rapid heartbeat trouble swallowing or breathing swelling of the mouth, lips, or face throat tightness hoarseness skin rash The most common side effects of LAGEVRIO are: diarrhea nausea dizziness These are not all the possible side effects of LAGEVRIO. Not many people have taken LAGEVRIO. Serious and unexpected side effects may happen. This medicine is still being studied, so it is possible that all of the risks are not known at this time. What other treatment choices are there? Veklury (remdesivir) is FDA-approved as an intravenous (IV) infusion for the treatment of mildto-moderate COVID-19 in certain adults and children. Talk with your doctor to see if Veklury is appropriate for you. Like LAGEVRIO, FDA may also allow for the emergency use of other medicines to treat people with COVID-19. Go to https://www.fda.gov/emergency-pre npmskigpj-aae-uqhgggjb/mcm-legalr oaccnkugm-njo-isbdkl-framework/em qfpfugd-gqp-efrdvfgweexbj for more information. It is your choice to be treated or not to be treated with LAGEVRIO. Should you decide not to take it, it will not change your standard medical care. What if I am ? is not recommended during treatment with LAGEVRIO and for 4 days after the last dose of LAGEVRIO. If you are or plan to breastfeed, talk to your healthcare provider about your options and specific situation before taking LAGEVRIO. How do I report side effects with LAGEVRIO? Contact your healthcare provider if you have any side effects that bother you or do not go away. Report side effects to FDA MedWatch at www.fda.gov/medwatch or call 7-362-FLD-3637 ([phone]). How should I store LAGEVRIO? Store LAGEVRIO capsules at room temperature between 68 F to 77 F (20 C to 25 C). Keep LAGEVRIO and all medicines out of the reach of children. How can I learn more about COVID-19? Ask your healthcare provider. Visit www.cdc.gov/COVID19 Contact your local or state public health department. Call [employer] at (toll free in the [place] Visit www.[employer] What Is an Emergency Use Authorization (EUA)? The [place] FDA has made LAGEVRIO available under an emergency access mechanism called an Emergency Use Authorization (EUA) The EUA is supported by a [place] of Health and Human Service (HHS) declaration that circumstances exist to justify emergency use of drugs and biological products during the COVID-19 pandemic. LAGEVRIO for the treatment of adults with a current diagnosis of rwmp-vb-lxinjkmz COVID-19 who are at high risk for progression to severe COVID-19, including hospitalization or , and for whom alternative COVID-19 treatment options approved or authorized by FDA are not accessible or clinically appropriate, has not undergone the same type of review as an FDAapproved product. In issuing an EUA under the COVID-19 public health emergency, the FDA has determined, among other things, that based on the total amount of scientific evidence available including data from adequate and well-controlled clinical trials, if available, it is reasonable to believe that the product may be effective for diagnosing, treating, or preventing COVID-19, or a serious or life-threatening disease or condition caused by COVID-19; that the known and potential benefits of the product, when used to diagnose, treat, or prevent such disease or condition, outweigh the known and potential risks of such product; and that there are no adequate, approved, and available alternatives. All of these criteria must be met to allow for the product to be used in the treatment of patients during the COVID-19 pandemic. The EUA for LAGEVRIO is in effect for the duration of the COVID-19 declaration justifying emergency use of LAGEVRIO, unless terminated or revoked (after which LAGEVRIO may no longer be used under the EUA). [place]. for: [employer] [address] For patent information: www.Lolapps/research/patent Copyright [employer] [facility] and its affiliates. All rights reserved. [id number] Revised: June 2022 documented in this encounter [facility] 03-17-2023 History of Present illness Narrative This Team Access Model visit is a phone encounter. It required patient-provider interaction for the medical decision making as documented below. I have communicated my name and active licensure. The patient's identity and physical location were verified at the time of this visit. Either the patient or their legal disability representative has been informed of the risks and benefits of -- and alternatives to -- treatment through a remote evaluation and consents to proceed with the evaluation remotely. Patient Location: [place] CC: Patient presents with: Covid19 Concern HPI: Elizabeth Delgado is a 77 year old female who is contacted today for a phone visit. This is an established patient of Dr. Brandon Manley MD. COVID positive test on 03/17/23, day 1 of symptoms. Symptoms are mild and include body aches, fatigue, cough REVIEW OF SYSTEMS See HPI PAST MEDICAL HISTORY Diagnosis Date Anxiety Arthritis Atrial fibrillation (HCC) s/p ablation 07/2015 Backache, unspecified Cancer (HCC) Basal cell on forehead Carpal tunnel syndrome, bilateral Congestive heart failure (HCC) DVT (deep venous thrombosis) (HCC) remote Esophageal reflux History of cardioversion 10/31/2018 HTN (hypertension) Irritable bowel syndrome Left carotid bruit 09/14/2018 noted by cardiology Left ventricular systolic dysfunction 11/08/2016 PONV (postoperative nausea and vomiting) S/P cervical spinal fusion Scoliosis PAST SURGICAL HISTORY Procedure Laterality Date BREAST SURGERY HX Right Lumpectomy benign CHOLECYSTECTOMY 10/2016 COLONOSCOPY 06/11/2022 repeat prn COLONOSCOPY FLX DX W/COLLJ SPEC WHEN PFRMD 10/06/2013 Colonoscopy COLONOSCOPY FLX DX W/COLLJ SPEC WHEN PFRMD 11/22/2015 Colonoscopy CONIZATION OF CERVIX, LEEP CURETTAGE EGD 06/11/2022 EGD TRANSORAL BIOPSY SINGLE/MULTIPLE 02/08/2011 ESOPHAGOGASTRODUODENOSCOPY TRANSORAL DIAGNOSTIC 10/06/2013 EGD ESOPHAGOGASTRODUODENOSCOPY TRANSORAL DIAGNOSTIC 11/22/2015 EGD ESOPHAGOGASTRODUODENOSCOPY TRANSORAL DIAGNOSTIC 02/28/2016 EGD EYE SURGERY HX HERNIA REPAIR HX LIG/TRNSXJ FLP TUBE ABDL/VAG APPR UNI/BI Tubal ligation NEUROPLASTY &/TRANSPOS MEDIAN NRV CARPAL TUNNE 02/14/2012 Carpal tunnel decomp - right OOPHORECTOMY PARTIAL/TOTAL UNI/BI 07/17/2010 Oophorectomy - left Dr. Manuel Hoover - Dr. Alessio Dahl PAST SURGICAL HISTORY OF NECK SURGERY, anterior fusion PAST SURGICAL HISTORY OF Face lift PAST SURGICAL HISTORY OF back surgery PAST SURGICAL HISTORY OF bilat foot surgey, bunionectomy PAST SURGICAL HISTORY OF benign tumor removed from right breast PAST SURGICAL HISTORY OF 03/2011 B/L cataract surgery with implants- Dr Jacob Aguilar at [facility] PAST SURGICAL HISTORY OF 07/27/2015 cryo ablation, cardiac RPR UMBILICAL HRNA 5 YRS/> REDUCIBLE 07/17/2010 Hernia repair, umbilical >5yr [facility] Dr Manuel Hoover SHX COSMETIC SURGERY SKIN BIOPSY HX ALLERGIES Cardizem [Diltiazem Hcl], Codeine, Entex [Phenylephrine-Guaifenesin], Etodolac, Meloxicam, Naproxen, Surgical Tape Adhesives [Other], Trazodone, and Zantac [Ranitidine Hcl] MEDICATIONS diclofenac, EC, (VOLTAREN) 75 mg EC tablet Takes once daily PRN for acute pain/inflammation. Take with food. JARDIANCE 10 mg tablet Take 10 mg by mouth once daily. metoprolol succinate ER (TOPROL XL) 25 mg 24 hr tablet Take 0.5 tablets by mouth twice daily. alsyxgzzgsx-hhlqbqtef-kqfvijos (TRELEGY ELLIPTA) 100-62.5-25 mcg inhalation powder Inhale 1 Puff as instructed once daily. Ipratropium (ATROVENT) 17 mcg/actuation inhaler Inhale 2 Puffs as instructed every 6 hours as needed for wheezing/shortness of breath. valsartan (DIOVAN) 40 mg tablet Take 1 tablet by mouth once daily. sucralfate (CARAFATE) 100 mg/mL suspension Take 10 mL by mouth before meals and at bedtime. (560cc=2wks) famotidine (PEPCID) 20 mg tablet Take 1 tablet by mouth twice daily. flecainide (TAMBOCOR) 100 mg tablet Take 1 tablet by mouth twice daily. lidocaine (LIDODERM) 5 % Apply 1 Patch as directed every 24 hours. Apply patch for 12 hours, remove, and then wait 12 more hours before applying a new patch. Location: mid back furosemide (LASIX) 40 mg tablet Take 1 tablet by mouth twice daily. (Patient taking differently: Take 40 mg by mouth once daily. Take another dose daily as needed for leg swelling) sucralfate (CARAFATE) 1 gram tablet Take 1 tablet by mouth before meals and at bedtime. apixaban (ELIQUIS) 5 mg tab(s) Take by mouth twice daily. Bifidobacterium infantis (ALIGN) 10.5 mg (10 million cell) chew Take 1 tablet by mouth once daily. potassium chloride ER (K-DUR, KLOR-CON) 20 mEq tablet Take 1 tablet by mouth twice daily. (Patient taking differently: Take 20 mEq by mouth once daily. Take extra dose daily when takes extra Lasix dose) melatonin 3 mg ODT Take 1 tablet by mouth daily at bedtime. MULTIVITAMIN WITH MINERALS (ONE-A-DAY 50 PLUS ORAL) Take by mouth. CALCIUM CARBONATE/VITAMIN D3 (VITAMIN D-3 ORAL) Take 1,000 mg by mouth five times daily. [id number] ORAL Take by mouth. FAMILY HISTORY Problem Relation Age of Onset Hypertension Mother Stroke Mother Coronary Artery Disease Father other (wilsons disease) Brother other (UMA'S DISEASE) Brother Liver dse, cirrhosis Social History Tobacco Use Smoking status: Former Packs/day: 2.00 Years: 35.00 Additional pack years: 0.00 Total pack years: 70.00 Types: Cigarettes Quit date: 11/09/2005 Years since quittin.3 Smokeless tobacco: Never Tobacco comments: Stopped smoking 12/2005 Vaping Use Vaping Use: Never used Substance Use Topics Alcohol use: Not Currently Drug use: No Exam Deferred physical exam as visit was completed over the phone Patient is speaking in complete sentences without obvious respiratory distress or audible wheezing. ASSESSMENT/PLAN: 1. COVID-19 virus infection - ICD9: 079.89, ICD10: U07.1 [x] Patient has positive SARS-COV-2 viral test (PCR or antigen test) during current illness [x] Patient has symptoms for 5 days or less [x] Not requiring hospitalization at any time for management of COVID-19 [x] Not requiring supplemental oxygen or a change in baseline supplemental oxygen [x] Not utilized for pre-exposure or post-exposure prophylaxis for prevention of COVID-19 [x] Patient does not have severe renal impairment (eGFR < 30 mL/min) or severe hepatic impairment (Child-Cabello Class C) [x] Meeting at least one of the criteria for high risk of progression to severe COVID-19: [x] Age over 65 years [] Cancer [] Chronic kidney disease [] Chronic liver disease [] Chronic lung diseases, including cystic fibrosis [] Dementia or other neurological conditions [] Diabetes (type 1 or type 2) [] Disabilities, including Down syndrome and neurodevelopmental disorders [] Heart conditions [] HIV infection [] Immunocompromised state [] Mental health conditions [] Medical related technological dependence (tracheostomy, gastrostomy, or positive pressure ventilation (not related to COVID) [] Overweight and obesity (BMI greater or equal to 25 for adults) [] Physical inactivity [] [] Sickle cell disease or thalassemia [] Smoking, current or former [] Solid organ or blood stem cell transplant [] Stroke or cerebrovascular disease [] Substance use disorders [] Tuberculosis [] People from racial and ethnic minority groups Criteria above are met: Yes Drug-Drug interactions reviewed: Yes. No drug interactions were identified. The patient was informed of the significant known benefits and potential risks of nirmatrelvir/ritonavir, and the extent to which such potential risks and benefits are unknown. The patient was informed that there is mandatory reporting of all medication errors and serious adverse events potentially related to nirmatrelvir/ritonavir treatment within 7 calendar days from the onset of the event and that events up to 28 days after completion of therapy need to be reported. The discussion included alternatives to receiving nirmatrelvir/ritonavir, including clinical trials, and potential the risks and benefits of those alternatives. The patient was provided electronically with the Fact Sheet for Patients, Parents and Caregivers . The patient was also instructed that in addition to the treatment with nirmatrelvir/ritonavir, he/she should continue to self-isolate and use infection control measures (e.g., wear mask, isolate, social distance, avoid sharing personal items, clean and disinfect high touch surfaces, and frequent handwashing) according to CDC guidelines. The patient stated understanding and gave verbal consent to proceeding with nirmatrelvir/ritonavir treatment. Lupe Ballard APRN.CNP March 17, 2023 2:35 PM Prescription instructions reviewed with patient as applicable. Potential red flag symptoms discussed with the patient. Reviewed appropriate action plan to take if red flag symptoms occur. Patient agreeable to treatment plan. During this patient visit I have spent approximately 15 minutes in counseling regarding treatment options, medications, and coordinating care. Lupe Ballard APRN.CNP documented in this encounter [facility] 03-04-2023 Miscellaneous Notes Rx sent again. Davin Victor PA-C John from [facility] Pharm calling for clarification on pt's diclofenac, EC 75 mg. States order is written for Can use every other day. States he needs to know how many tablets and how many times per pay pt can take this. Please advise. Can send a new rx or call pharm back. Leif Orlando LPN documented in this encounter [facility] 03-04-2023 Note [facility] 03-04-2023 Miscellaneous Notes Patient was seen in office 03/04 by Lonny Victor and below was discussed. Nothing further at this time. MARJ Yusuf Unfortunately she needs an appointment. She is seeing Davin tomorrow. Did she already go back to work? Gwendolyn Ballard APRN.CNP Patient last seen by Kaci Ballard on 02/10/23. Routing message there. MARJ Yusuf Called patient to reschedule her appointment that she had to day with Gwendolyn Ballard and patient stated that she needs her paperwork signed to be able to go back to work on Friday. She has already spoke to HR and they are expecting her to be at work on Friday. Patient wants to know if a nurse can sign the paperwork for her so that she is able to go back on Friday. Please call patient back at [phone] to advice what the patient should do. Thank you Adriana Lopes documented in this encounter [facility] 03-04-2023 History of Present illness Narrative CC: Patient presents with: Follow Up: return to work tomorrow and needs handicap placard HPI Elizabeth Delgado is a 77 year old female who presents today for follow-up, requesting return to work for tomorrow. Also requesting handicap placard at this time. Last visit was on 02/10/2023 with Gwendolyn Ballard CNP. At that time, patient's COPD and associated shortness of breath was much improved after starting Trelegy Ellipta, and rarely needed to use her oxygen (advised to use if pulse ox less than 90%). States that she is feeling much improved at this time. Very rarely using oxygen, sometimes at night. Had nocturnal oxygen testing performed through Dr. Gamboa (pul, [facility]) Had CVA in 08/01, and has been in and out of hospital with various issues (COPD exacerbations/pneumonia) REVIEW OF SYSTEMS See HPI All other systems negative. PAST MEDICAL HISTORY Diagnosis Date Anxiety Arthritis Atrial fibrillation (HCC) s/p ablation 07/2015 Backache, unspecified Cancer (HCC) Basal cell on forehead Carpal tunnel syndrome, bilateral Congestive heart failure (HCC) DVT (deep venous thrombosis) (HCC) remote Esophageal reflux History of cardioversion 10/31/2018 HTN (hypertension) Irritable bowel syndrome Left carotid bruit 09/14/2018 noted by cardiology Left ventricular systolic dysfunction 11/08/2016 PONV (postoperative nausea and vomiting) S/P cervical spinal fusion Scoliosis PAST SURGICAL HISTORY Procedure Laterality Date BREAST SURGERY HX Right Lumpectomy benign CHOLECYSTECTOMY 10/2016 COLONOSCOPY 06/11/2022 repeat prn COLONOSCOPY FLX DX W/COLLJ SPEC WHEN PFRMD 10/06/2013 Colonoscopy COLONOSCOPY FLX DX W/COLLJ SPEC WHEN PFRMD 11/22/2015 Colonoscopy CONIZATION OF CERVIX, LEEP CURETTAGE EGD 06/11/2022 EGD TRANSORAL BIOPSY SINGLE/MULTIPLE 02/08/2011 ESOPHAGOGASTRODUODENOSCOPY TRANSORAL DIAGNOSTIC 10/06/2013 EGD ESOPHAGOGASTRODUODENOSCOPY TRANSORAL DIAGNOSTIC 11/22/2015 EGD ESOPHAGOGASTRODUODENOSCOPY TRANSORAL DIAGNOSTIC 02/28/2016 EGD EYE SURGERY HX HERNIA REPAIR HX LIG/TRNSXJ FLP TUBE ABDL/VAG APPR UNI/BI Tubal ligation NEUROPLASTY &/TRANSPOS MEDIAN NRV CARPAL TUNNE 02/14/2012 Carpal tunnel decomp - right OOPHORECTOMY PARTIAL/TOTAL UNI/BI 07/17/2010 Oophorectomy - left Dr. Manuel Hoover - Dr. Alessio Dahl PAST SURGICAL HISTORY OF NECK SURGERY, anterior fusion PAST SURGICAL HISTORY OF Face lift PAST SURGICAL HISTORY OF back surgery PAST SURGICAL HISTORY OF bilat foot surgey, bunionectomy PAST SURGICAL HISTORY OF benign tumor removed from right breast PAST SURGICAL HISTORY OF 03/2011 B/L cataract surgery with implants- Dr Jacob Aguilar at [facility] PAST SURGICAL HISTORY OF 07/27/2015 cryo ablation, cardiac RPR UMBILICAL HRNA 5 YRS/> REDUCIBLE 07/17/2010 Hernia repair, umbilical >5yr [facility] Dr Manuel Hoover SHX COSMETIC SURGERY SKIN BIOPSY HX ALLERGIES Cardizem [Diltiazem Hcl], Codeine, Entex [Phenylephrine-Guaifenesin], Etodolac, Meloxicam, Naproxen, Surgical Tape Adhesives [Other], Trazodone, and Zantac [Ranitidine Hcl] MEDICATIONS JARDIANCE 10 mg tablet Take 10 mg by mouth once daily. metoprolol succinate ER (TOPROL XL) 25 mg 24 hr tablet Take 0.5 tablets by mouth twice daily. gcrvdpzebaf-ihpjthmab-aaxphgtx (TRELEGY ELLIPTA) 100-62.5-25 mcg inhalation powder Inhale 1 Puff as instructed once daily. Ipratropium (ATROVENT) 17 mcg/actuation inhaler Inhale 2 Puffs as instructed every 6 hours as needed for wheezing/shortness of breath. valsartan (DIOVAN) 40 mg tablet Take 1 tablet by mouth once daily. sucralfate (CARAFATE) 100 mg/mL suspension Take 10 mL by mouth before meals and at bedtime. (560cc=2wks) famotidine (PEPCID) 20 mg tablet Take 1 tablet by mouth twice daily. diclofenac, EC, (VOLTAREN) 75 mg EC tablet Can use every other day for pain/inflammation. Take with food. flecainide (TAMBOCOR) 100 mg tablet Take 1 tablet by mouth twice daily. furosemide (LASIX) 40 mg tablet Take 1 tablet by mouth twice daily. (Patient taking differently: Take 40 mg by mouth once daily. Take another dose daily as needed for leg swelling) apixaban (ELIQUIS) 5 mg tab(s) Take by mouth twice daily. Bifidobacterium infantis (ALIGN) 10.5 mg (10 million cell) chew Take 1 tablet by mouth once daily. potassium chloride ER (K-DUR, KLOR-CON) 20 mEq tablet Take 1 tablet by mouth twice daily. (Patient taking differently: Take 20 mEq by mouth once daily. Take extra dose daily when takes extra Lasix dose) melatonin 3 mg ODT Take 1 tablet by mouth daily at bedtime. MULTIVITAMIN WITH MINERALS (ONE-A-DAY 50 PLUS ORAL) Take by mouth. CALCIUM CARBONATE/VITAMIN D3 (VITAMIN D-3 ORAL) Take 1,000 mg by mouth five times daily. NQTBBPK-MMIMTMJOY-XULS ORAL Take by mouth. lidocaine (LIDODERM) 5 % Apply 1 Patch as directed every 24 hours. Apply patch for 12 hours, remove, and then wait 12 more hours before applying a new patch. Location: mid back sucralfate (CARAFATE) 1 gram tablet Take 1 tablet by mouth before meals and at bedtime. FAMILY HISTORY Problem Relation Age of Onset Hypertension Mother Stroke Mother Coronary Artery Disease Father other (wilsons disease) Brother other (UMA'S DISEASE) Brother Liver dse, cirrhosis Social History Tobacco Use Smoking status: Former Packs/day: 2.00 Years: 35.00 Additional pack years: 0.00 Total pack years: 70.00 Types: Cigarettes Quit date: 11/09/2005 Years since quittin.3 Smokeless tobacco: Never Tobacco comments: Stopped smoking 12/2005 Vaping Use Vaping Use: Never used Substance Use Topics Alcohol use: Not Currently Drug use: No PHYSICAL EXAM BP 138/70 (BP Site: Right Arm, BP Position: Sitting, BP Cuff Size: Regular Adult) Pulse 61 Temp 36.6 C (97.8 F) Resp 12 Ht 157.5 cm (5' 2 ) Wt 64 kg (141 lb) SpO2 96% BMI 25.79 kg/m General Appearance: well appearing, in no acute distress, alert Psych: mood and affect broad and appropriate Skin: Skin color, texture, turgor normal for age Lungs: Lungs clear to auscultation. No wheezing, rhonchi, rales. Heart: RRR without murmur, gallop, or rubs. Extremities: No gross deformities, significant edema, skin discoloration, clubbing or cyanosis. Neurological: Gait normal. No focal neurological deficits. Sensation grossly intact. ASSESSMENT/PLAN: 1. Chronic obstructive pulmonary disease, unspecified COPD type (HCC) - ICD9: 496, ICD10: J44.9 (primary diagnosis) Patient much improved on new regimen with Fletcherlekyle Ellipta. Follow-up as planned with Dr. Gamboa to discuss nocturnal oxygen testing. Note generated for patient to return to work, upwards of 5 hours 5 days/week. 2. Generalized arthritis - ICD9: 716.90, ICD10: M19.90 Refills provided on diclofenac per patient request - DICLOFENAC SODIUM 75 MG TABLET,DELAYED RELEASE Prescription instructions reviewed with patient as applicable. Potential red flag symptoms discussed with the patient. Reviewed appropriate action plan to take if red flag symptoms occur. Patient agreeable to treatment plan. Davin Victor PA-C documented in this encounter [facility] 03-03-2023 Miscellaneous Notes Please see attach overnight pulse ox results and advise. Scan on 03/03/2023 9:18 AM by Provider, MARIANNE Ramirez: Miscellaneous Procedures Tamica Dolan LPN documented in this encounter [facility] 02-10-2023 Note [facility] 02-10-2023 History of Present illness Narrative CC: Patient presents with: Recheck: Follow up HPI Elizabeth Delgado is a 77 year old female who presents today for follow up on multiple concerns. Over the past year has had multiple hospitalizations for recurrent pneumonia, CHF, A-fib, and CVA. 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 Much improvement in shortness of breath after starting trilogy and rarely needs to use her oxygen. Will put on if pulse ox is less than 90%. Has been slowly trying to increase activity at home. Is still on dificid as she was on doxycycline and recently had c-diff. Denies any nausea, change in chronic upper abdominal pain, cramping, or diarrhea. Saw cardiology and placed on jardiance to help her kidney function and help decrease fluid overload. Patient concerned with having a history of hypoglycemia and on this medicine. Has been on this for a week without any symptoms of low blood sugar. REVIEW OF SYSTEMS General: no fevers, no chills, no night sweats, no recurrent infections, no change in appetite, no change in energy, and no significant changes in weight Respiratory: no cough, no wheezing, no shortness of breath, no hemoptysis Cardiovascular: no chest pain, no chest pressure, no palpitations, and no swelling Neurologic: No headache, weakness, dizziness, memory loss, syncope. PAST MEDICAL HISTORY Diagnosis Date Anxiety Arthritis Atrial fibrillation (HCC) s/p ablation 07/2015 Backache, unspecified Cancer (HCC) Basal cell on forehead Carpal tunnel syndrome, bilateral Congestive heart failure (HCC) DVT (deep venous thrombosis) (HCC) remote Esophageal reflux History of cardioversion 10/31/2018 HTN (hypertension) Irritable bowel syndrome Left carotid bruit 09/14/2018 noted by cardiology Left ventricular systolic dysfunction 11/08/2016 PONV (postoperative nausea and vomiting) S/P cervical spinal fusion Scoliosis PAST SURGICAL HISTORY Procedure Laterality Date BREAST SURGERY HX Right Lumpectomy benign CHOLECYSTECTOMY 10/2016 COLONOSCOPY 06/11/2022 repeat prn COLONOSCOPY FLX DX W/COLLJ SPEC WHEN PFRMD 10/06/2013 Colonoscopy COLONOSCOPY FLX DX W/COLLJ SPEC WHEN PFRMD 11/22/2015 Colonoscopy CONIZATION OF CERVIX, LEEP CURETTAGE EGD 06/11/2022 EGD TRANSORAL BIOPSY SINGLE/MULTIPLE 02/08/2011 ESOPHAGOGASTRODUODENOSCOPY TRANSORAL DIAGNOSTIC 10/06/2013 EGD ESOPHAGOGASTRODUODENOSCOPY TRANSORAL DIAGNOSTIC 11/22/2015 EGD ESOPHAGOGASTRODUODENOSCOPY TRANSORAL DIAGNOSTIC 02/28/2016 EGD EYE SURGERY HX HERNIA REPAIR HX LIG/TRNSXJ FLP TUBE ABDL/VAG APPR UNI/BI Tubal ligation NEUROPLASTY &/TRANSPOS MEDIAN NRV CARPAL TUNNE 02/14/2012 Carpal tunnel decomp - right OOPHORECTOMY PARTIAL/TOTAL UNI/BI 07/17/2010 Oophorectomy - left Dr. Manuel Hoover - Dr. Alessio Dahl PAST SURGICAL HISTORY OF NECK SURGERY, anterior fusion PAST SURGICAL HISTORY OF Face lift PAST SURGICAL HISTORY OF back surgery PAST SURGICAL HISTORY OF bilat foot surgey, bunionectomy PAST SURGICAL HISTORY OF benign tumor removed from right breast PAST SURGICAL HISTORY OF 03/2011 B/L cataract surgery with implants- Dr Jacob Aguilar at [facility] PAST SURGICAL HISTORY OF 07/27/2015 cryo ablation, cardiac RPR UMBILICAL HRNA 5 YRS/> REDUCIBLE 07/17/2010 Hernia repair, umbilical >5yr [facility] Dr Manuel Hoover SHX COSMETIC SURGERY SKIN BIOPSY HX ALLERGIES Cardizem [Diltiazem Hcl], Codeine, Entex [Phenylephrine-Guaifenesin], Etodolac, Meloxicam, Naproxen, Surgical Tape Adhesives [Other], Trazodone, and Zantac [Ranitidine Hcl] MEDICATIONS JARDIANCE 10 mg tablet Take 10 mg by mouth once daily. metoprolol succinate ER (TOPROL XL) 25 mg 24 hr tablet Take 0.5 tablets by mouth twice daily. fidaxomicin (DIFICID) 200 mg tablet Take 1 tablet by mouth twice daily for 5 days, THEN 1 tablet once daily for 20 days. predniSONE (DELTASONE) 20 mg tablet Take two daily for 5 days. stwucrvcrhn-xtoviuxiy-scosjljx (TRELEGY ELLIPTA) 100-62.5-25 mcg inhalation powder Inhale 1 Puff as instructed once daily. Ipratropium (ATROVENT) 17 mcg/actuation inhaler Inhale 2 Puffs as instructed every 6 hours as needed for wheezing/shortness of breath. valsartan (DIOVAN) 40 mg tablet Take 1 tablet by mouth once daily. sucralfate (CARAFATE) 100 mg/mL suspension Take 10 mL by mouth before meals and at bedtime. (560cc=2wks) famotidine (PEPCID) 20 mg tablet Take 1 tablet by mouth twice daily. diclofenac, EC, (VOLTAREN) 75 mg EC tablet Can use every other day for pain/inflammation. Take with food. flecainide (TAMBOCOR) 100 mg tablet Take 1 tablet by mouth twice daily. lidocaine (LIDODERM) 5 % Apply 1 Patch as directed every 24 hours. Apply patch for 12 hours, remove, and then wait 12 more hours before applying a new patch. Location: mid back furosemide (LASIX) 40 mg tablet Take 1 tablet by mouth twice daily. (Patient taking differently: Take 40 mg by mouth once daily. Take another dose daily as needed for leg swelling) sucralfate (CARAFATE) 1 gram tablet Take 1 tablet by mouth before meals and at bedtime. apixaban (ELIQUIS) 5 mg tab(s) Take by mouth twice daily. Bifidobacterium infantis (ALIGN) 10.5 mg (10 million cell) chew Take 1 tablet by mouth once daily. potassium chloride ER (K-DUR, KLOR-CON) 20 mEq tablet Take 1 tablet by mouth twice daily. (Patient taking differently: Take 20 mEq by mouth once daily. Take extra dose daily when takes extra Lasix dose) melatonin 3 mg ODT Take 1 tablet by mouth daily at bedtime. MULTIVITAMIN WITH MINERALS (ONE-A-DAY 50 PLUS ORAL) Take by mouth. CALCIUM CARBONATE/VITAMIN D3 (VITAMIN D-3 ORAL) Take 1,000 mg by mouth five times daily. (Patient not taking: No sig reported) [id number] ORAL Take by mouth. FAMILY HISTORY Problem Relation Age of Onset Hypertension Mother Stroke Mother Coronary Artery Disease Father other (wilsons disease) Brother other (UMA'S DISEASE) Brother Liver dse, cirrhosis Social History Tobacco Use Smoking status: Former Packs/day: 2.00 Years: 35.00 Additional pack years: 0.00 Total pack years: 70.00 Types: Cigarettes Quit date: 11/09/2005 Years since quittin.2 Smokeless tobacco: Never Tobacco comments: Stopped smoking 12/2005 Vaping Use Vaping Use: Never used Substance Use Topics Alcohol use: Not Currently Drug use: No PHYSICAL EXAM BP 146/78 Pulse 63 Resp 16 Wt 62.6 kg (138 lb) SpO2 96% BMI 25.24 kg/m General Appearance: well appearing, in no acute distress, alert Pysch: mood and affect broad and appropriate Skin: Skin color, texture, turgor normal for age; Eyes: conjunctiva pink and moist, no icterus, sclera white, non-injected Neck: Thyroid normal size and symmetric without palpable nodules, No adenopathy Lymph nodes: No cervical lymphadenopathy and No supraclavicular lymphadenopathy Lungs: Lungs clear to auscultation. No wheezing, rhonchi, rales. Heart: RRR without murmur, gallop, or rubs. No ectopy Neurological: Gait at baseline for patient, speech normal, mental status intact Health maintenance reviewed with patient: BP Controlled (<130/80) Never done Alpha-1 Antitrypsin Deficiency Screening Never done DTaP,Tdap,Td Vaccine(1 - Tdap) due on 07/09/2018 Covid-19 Vaccine(4 - Moderna series) due on 05/18/2021 Shingrix Vaccine(3 of 3) due on 11/14/2021 Advance Directive Discussion Never done Depression Assessment due on 05/12/2022 Influenza Vaccine(1) due on 01/10/2023 Annual PCP Team Chronic Disease Visit due on 01/29/2024 Colorectal Cancer Screening due on 06/11/2024 Lipid Screening due on 01/18/2025 Diabetes Screening due on 12/26/2025 Bone Density Screening Completed Spirometry Completed Hepatitis C Screening Completed Pneumococcal Vaccine: 65+ Completed HPV Vaccine Aged Out Mammogram Screening Discontinued DATA REVIEWED: Most recent labs ASSESSMENT/PLAN: 1. Primary hypertension - ICD9: 401.9, ICD10: I10 (primary diagnosis) Sub-optimal control. - will re-evaluate at follow up - Continue current medications - Recommend home blood pressure monitoring, to bring results to next visit - Encouraged sodium restriction, DASH or Mediterranean diet - Recommend regular aerobic exercise 2. Chronic congestive heart failure, unspecified heart failure type (HCC) - ICD9: 428.0, ICD10: I50.9 - stable and asymptomatic at this time - continue with current recommendations by cardiology. - Continue current medications - Encouraged daily weights 3. Chronic obstructive pulmonary disease, unspecified COPD type (HCC) - ICD9: 496, ICD10: J44.9 - much improvement - continue to increase activity at home to see if oxygen needed. Follow up in 2-4 weeks and if still stable and feeling well will start back to work but at shortened hours 4. Paroxysmal atrial fibrillation (HCC) - ICD9: 427.31, ICD10: I48.0 - asymptomatic and and apical regular - on metoprolol, flecainide and eliquis 5. Encounter for immunization - ICD9: V03.89, ICD10: Z23 - INFLUENZA VACCINE, PRSV FREE, AGE 65+ YR, HIGH DOSE, QUADRIVALENT (FLUZONE HIGH-DOSE) Prescription instructions reviewed with patient as applicable. Potential red flag symptoms discussed with the patient. Reviewed appropriate action plan to take if red flag symptoms occur. Patient agreeable to treatment plan. Gwendolyn Ballard APRN.CNP documented in this encounter [facility] 01-28-2023 Note [facility] 01-28-2023 Instructions Phil Oden MD - 01/28/2023 8:09 PM EDT Fill prescription for C diff if develop symptoms as before. Can get tested if needed documented in this encounter [facility] 01-28-2023 History of Present illness Narrative This note was created using [employer]. Subjective Elizabeth Delgado is a 77 year old female. Patient presents with: Follow Up SUBJECTIVE: Elizabeth Delgado is a 77 year old year old lady here today for follow up appointment for review of medical conditions. Seeing for close follow up after seeing Gwendolyn. Reviewed that started feeling better since started treatment per Dr. Gamboa. Noted that heart rate got too low so med decreased. Herat rate has been staying better controlled. Once had a 120 for short time then went back down. Fitness tracker goes up to 80s at times. Lowest heart rate 45 since dose decreased last week. Mostly in 50s to 60s. Noted that has not been able to get in with follow up with Dr. Ibarra--keeps getting cancelled and goes to see PAs. Wants to see provider within [facility] system but prefers not main campus [facility]. Noted had ablation therapy for a fib through [place] but states that did not work well. Wonders about [facility]. Would like off Eliquis. Reviewed had C diff that did not resolve till treated with Dificid. Just one prior episode. Pulse ox not dropping to 85% as before. Now drops just to 93% since started meds yesterday. Cough drop helps cough up some mucus. PAST MEDICAL HISTORY Diagnosis Date Anxiety Arthritis Atrial fibrillation (HCC) s/p ablation 07/2015 Backache, unspecified Cancer (HCC) Basal cell on forehead Carpal tunnel syndrome, bilateral Congestive heart failure (HCC) DVT (deep venous thrombosis) (HCC) remote Esophageal reflux History of cardioversion 10/31/2018 HTN (hypertension) Irritable bowel syndrome Left carotid bruit 09/14/2018 noted by cardiology Left ventricular systolic dysfunction 11/08/2016 PONV (postoperative nausea and vomiting) S/P cervical spinal fusion Scoliosis Current Outpatient Medications Medication Sig furosemide (LASIX) 40 mg tablet Take 1 tablet by mouth twice daily. (Patient taking differently: Take 40 mg by mouth once daily. Take another dose daily as needed for leg swelling) potassium chloride ER (K-DUR, KLOR-CON) 20 mEq tablet Take 1 tablet by mouth twice daily. (Patient taking differently: Take 20 mEq by mouth once daily. Take extra dose daily when takes extra Lasix dose) metoprolol succinate ER (TOPROL XL) 25 mg 24 hr tablet Take 0.5 tablets by mouth twice daily. fidaxomicin (DIFICID) 200 mg tablet Take 1 tablet by mouth twice daily for 5 days, THEN 1 tablet once daily for 20 days. doxycycline hyclate (VIBRAMYCIN) 100 mg capsule Take 1 capsule by mouth twice daily for 7 days. predniSONE (DELTASONE) 20 mg tablet Take two daily for 5 days. laojomddxor-pqmpcmvqv-ttpbzozz (TRELEGY ELLIPTA) 100-62.5-25 mcg inhalation powder Inhale 1 Puff as instructed once daily. Ipratropium (ATROVENT) 17 mcg/actuation inhaler Inhale 2 Puffs as instructed every 6 hours as needed for wheezing/shortness of breath. valsartan (DIOVAN) 40 mg tablet Take 1 tablet by mouth once daily. sucralfate (CARAFATE) 100 mg/mL suspension Take 10 mL by mouth before meals and at bedtime. (560cc=2wks) famotidine (PEPCID) 20 mg tablet Take 1 tablet by mouth twice daily. diclofenac, EC, (VOLTAREN) 75 mg EC tablet Can use every other day for pain/inflammation. Take with food. flecainide (TAMBOCOR) 100 mg tablet Take 1 tablet by mouth twice daily. lidocaine (LIDODERM) 5 % Apply 1 Patch as directed every 24 hours. Apply patch for 12 hours, remove, and then wait 12 more hours before applying a new patch. Location: mid back sucralfate (CARAFATE) 1 gram tablet Take 1 tablet by mouth before meals and at bedtime. apixaban (ELIQUIS) 5 mg tab(s) Take by mouth twice daily. Bifidobacterium infantis (ALIGN) 10.5 mg (10 million cell) chew Take 1 tablet by mouth once daily. melatonin 3 mg ODT Take 1 tablet by mouth daily at bedtime. MULTIVITAMIN WITH MINERALS (ONE-A-DAY 50 PLUS ORAL) Take by mouth. CALCIUM CARBONATE/VITAMIN D3 (VITAMIN D-3 ORAL) Take 1,000 mg by mouth five times daily. (Patient not taking: No sig reported) [id number] ORAL Take by mouth. No current facility-administered medications for this visit. Review of Systems Objective BP 130/78 Pulse (!) 58 Resp 16 Ht 157.5 cm (5' 2 ) Wt 62.1 kg (137 lb) SpO2 94% BMI 25.06 kg/m Last 5 Encounter Wt Readings: Date: Wt: 01/28/2023 62.1 kg (137 lb) 01/27/2023 61.7 kg (136 lb) 01/27/2023 61.7 kg (136 lb) 01/23/2023 62.1 kg (137 lb) 01/10/2023 63 kg (139 lb) No waist measurement recorded Estimated body mass index is 25.06 kg/m as calculated from the following: Height as of this encounter: 157.5 cm (5' 2 ). Weight as of this encounter: 62.1 kg (137 lb). Last 5 Encounter BP Readings: Date: BP: 01/28/2023 130/78 01/27/2023 130/78 01/23/2023 136/62[bp average[ 01/10/2023 130/62 01/03/2023 130/68 Physical Exam Constitutional: Appearance: Normal appearance. HENT: Head: Normocephalic. Eyes: Conjunctiva/sclera: Conjunctivae normal. Cardiovascular: Rate and Rhythm: Normal rate and regular rhythm. Heart sounds: Normal heart sounds. Pulmonary: Effort: Pulmonary effort is normal. Comments: Scattered wheeze; moving air well; a few crackles that cleared with deep breath and cough. Able to speak in full sentences. Skin: General: Skin is warm and dry. Neurological: General: No focal deficit present. Mental Status: She is alert and oriented to person, place, and time. Psychiatric: Mood and Affect: Mood normal. Behavior: Behavior normal. Thought Content: Thought content normal. Judgment: Judgment normal. 01/23/23 Outside Labs reviewed Mild anemia Cr normal and eGFR 64 K within normal limits Assessment and Plan Encounter Diagnosis ICD-10-CM 1. Paroxysmal atrial fibrillation (HCC) I48.0 Stable on current management but heart rate at times stil low and sometimes. Nagi Freeman will see her this 2. Chronic obstructive pulmonary disease with acute exacerbation (HCC) J44.[address] Sylvia Gamboa; doing better 3. History of Clostridium difficile colitis Z86.19 Antibiotic given for just in case 4. 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 Multiple medical issues addressed as noted in HPI. Patient involved in shared decision making for management of medical issues. History and medications reviewed. Epic updated as needed Refills and/or prescriptions taken care of and meds adjusted as indicated after reviewed history, exam and labs. Health Maintenance reviewed. Updated record and/or ordered tests as recorded. Encouraged on efforts at healthy diet and regular exercise and adequate sleep. I spent a total of at least 50 minutes on the date of the service which included [id number] patient care, completing clinical documentation, obtaining and/or reviewing separately obtained history, performing a medically appropriate examination, counseling and educating the patient/family/caregiver, and ordering medications, tests, or procedures. Phil Oden MD documented in this encounter [facility] 01-27-2023 Note [facility] 01-27-2023 Note [facility] 01-27-2023 History of Present illness Narrative Images from the original note were not included. . [facility] [facility] Note Patient name: Elizabeth Delgado PCP: Brandon Manley MD Referring Physician: Gwendolyn Ballard CNP Consultation requested by Gwendolyn Ballard CNP for an opinion regarding COPD. My final recommendations will be communicated back to the requesting physician by way of shared Medical record or letter to requesting physician via US mail. CC: COPD HPI: Elizabeth Delgado 77 year old female former 70 pack year smoker, quitting in 2005 with PMH significant for HTN, GERD, scoliosis, diastolic heart failure, AF, being referred for evaluation of COPD. Recently admitted to [facility] with hypoxemic respiratory failure due to PNA and CHF. Chest x-ray at that time showed increased interstitial markings and no significant infiltrate. BNP slightly elevated at 397 pg/mL and WBC count 16,300. Discharged on 2 L oxygen. She has not been wearing her oxygen. Self monitored SPO2 during the day and with activity has been above 90%. She has not been wearing her oxygen at night. With regards to her lung disease, she was on albuterol in the past but states this induced atrial fibrillation. Currently on Atrovent inhaler alone. She mainly has dyspnea on exertion, initially short of breath when climbing hills but now has noted shortness of breath on level ground. She has a daily cough productive of thick sometimes harrell discolored sputum. Usually does not wheeze although she has been wheezing the past 2 weeks. No fevers or chills or chest pain. DME: [employer] DATA: PFT: Pulmonary function test show moderate obstruction with improvement in small airways postbronchodilator and slight reduction in diffusing capacity Labs: Component Ref Range & Units 1 mo ago (12/26/22) WBC 3.70 - 11.00 k/uL 8.73 RBC 3.90 - 5.20 m/uL 4.02 Hemoglobin 11.5 - 15.5 g/dL 11.8 Hematocrit 36.0 - 46.0 % 36.4 MCV 80.0 - 100.0 fL 90.5 MCH 26.0 - 34.0 pg 29.4 MCHC 30.5 - 36.0 g/dL 32.4 RDW-CV 11.5 - 15.0 % 12.7 Platelet Count 150 - 400 k/uL 296 MPV 9.0 - 12.7 fL 9.9 Absolute nRBC <0.01 k/uL <0.01 Component Ref Range & Units 1 mo ago NT Pro BNP <450 pg/mL 6 High Resulting Agency [facility] Imaging / Diagnostic Studies: DATE OF EXAM: Jan 23 2023 4:11PM WOX [id number] - XR CHEST 2V FRONTAL/LAT / CLINICAL HISTORY: Shortness of breath Subacute cough MQ: [id number] EXAM DATE/TIME: 01/23/2023 4:11 PM COMPARISON: Chest x-ray 12/12/2022 RESULT: Lines, tubes, and devices: None. Lungs and pleura: No consolidation. No lung mass. No pleural effusion. No pneumothorax. Cardiomediastinal silhouette: Stable cardiomediastinal silhouette Bones and soft tissues: Degenerative disease of the thoracic spine IMPRESSION: No acute radiographic abnormality. Reviewed chest CT from [facility] 04/27/2022 shows moderate upper lobe emphysema PAST MEDICAL HISTORY Diagnosis Date Anxiety Arthritis Atrial fibrillation (HCC) s/p ablation 07/2015 Backache, unspecified Cancer (HCC) Basal cell on forehead Carpal tunnel syndrome, bilateral Congestive heart failure (HCC) DVT (deep venous thrombosis) (HCC) remote Esophageal reflux History of cardioversion 10/31/2018 HTN (hypertension) Irritable bowel syndrome Left carotid bruit 09/14/2018 noted by cardiology Left ventricular systolic dysfunction 11/08/2016 PONV (postoperative nausea and vomiting) S/P cervical spinal fusion Scoliosis ALLERGIES Allergen Reactions Cardizem [Diltiazem* Swelling Codeine Vomiting Ringing in Ears. Entex [Phenylephrin* Rash Etodolac Other: See Comments Heart palpitations Meloxicam Other: See Comments Heart palpitations Naproxen Swelling Possible allergy? Pt relates to naproxen Surgical Tape Adhes* Rash Trazodone Other: See Comments rapid hear beat Zantac [Ranitidine * Rash, Swelling doxycycline hyclate (VIBRAMYCIN) 100 mg capsule Take 1 capsule by mouth twice daily for 7 days. predniSONE (DELTASONE) 20 mg tablet Take two daily for 5 days. mmxujrhtbpl-ndodbxxue-jrmhkwop (TRELEGY ELLIPTA) 100-62.5-25 mcg inhalation powder Inhale 1 Puff as instructed once daily. Ipratropium (ATROVENT) 17 mcg/actuation inhaler Inhale 2 Puffs as instructed every 6 hours as needed for wheezing/shortness of breath. valsartan (DIOVAN) 40 mg tablet Take 1 tablet by mouth once daily. sucralfate (CARAFATE) 100 mg/mL suspension Take 10 mL by mouth before meals and at bedtime. (560cc=2wks) famotidine (PEPCID) 20 mg tablet Take 1 tablet by mouth twice daily. diclofenac, EC, (VOLTAREN) 75 mg EC tablet Can use every other day for pain/inflammation. Take with food. flecainide (TAMBOCOR) 100 mg tablet Take 1 tablet by mouth twice daily. lidocaine (LIDODERM) 5 % Apply 1 Patch as directed every 24 hours. Apply patch for 12 hours, remove, and then wait 12 more hours before applying a new patch. Location: mid back metoprolol tartrate, short acting, (LOPRESSOR) 25 mg tablet Take 1 tablet by mouth twice daily. furosemide (LASIX) 40 mg tablet Take 1 tablet by mouth twice daily. sucralfate (CARAFATE) 1 gram tablet Take 1 tablet by mouth before meals and at bedtime. apixaban (ELIQUIS) 5 mg tab(s) Take by mouth twice daily. Bifidobacterium infantis (ALIGN) 10.5 mg (10 million cell) chew Take 1 tablet by mouth once daily. potassium chloride ER (K-DUR, KLOR-CON) 20 mEq tablet Take 1 tablet by mouth twice daily. melatonin 3 mg ODT Take 1 tablet by mouth daily at bedtime. MULTIVITAMIN WITH MINERALS (ONE-A-DAY 50 PLUS ORAL) Take by mouth. CALCIUM CARBONATE/VITAMIN D3 (VITAMIN D-3 ORAL) Take 1,000 mg by mouth five times daily. (Patient not taking: No sig reported) [id number] ORAL Take by mouth. 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 Pets: Dog FAMILY HISTORY Problem Relation Age of Onset Hypertension Mother Stroke Mother Coronary Artery Disease Father other (wilsons disease) Brother other (UMA'S DISEASE) Brother Liver dse, cirrhosis PAST SURGICAL HISTORY Procedure Laterality Date BREAST SURGERY HX Right Lumpectomy benign CHOLECYSTECTOMY 10/2016 COLONOSCOPY 06/11/2022 repeat prn COLONOSCOPY FLX DX W/COLLJ SPEC WHEN PFRMD 10/06/2013 Colonoscopy COLONOSCOPY FLX DX W/COLLJ SPEC WHEN PFRMD 11/22/2015 Colonoscopy CONIZATION OF CERVIX, LEEP CURETTAGE EGD 06/11/2022 EGD TRANSORAL BIOPSY SINGLE/MULTIPLE 02/08/2011 ESOPHAGOGASTRODUODENOSCOPY TRANSORAL DIAGNOSTIC 10/06/2013 EGD ESOPHAGOGASTRODUODENOSCOPY TRANSORAL DIAGNOSTIC 11/22/2015 EGD ESOPHAGOGASTRODUODENOSCOPY TRANSORAL DIAGNOSTIC 02/28/2016 EGD EYE SURGERY HX HERNIA REPAIR HX LIG/TRNSXJ FLP TUBE ABDL/VAG APPR UNI/BI Tubal ligation NEUROPLASTY &/TRANSPOS MEDIAN NRV CARPAL TUNNE 02/14/2012 Carpal tunnel decomp - right OOPHORECTOMY PARTIAL/TOTAL UNI/BI 07/17/2010 Oophorectomy - left Dr. Manuel Hoover - Dr. Alessio Dahl PAST SURGICAL HISTORY OF NECK SURGERY, anterior fusion PAST SURGICAL HISTORY OF Face lift PAST SURGICAL HISTORY OF back surgery PAST SURGICAL HISTORY OF bilat foot surgey, bunionectomy PAST SURGICAL HISTORY OF benign tumor removed from right breast PAST SURGICAL HISTORY OF 03/2011 B/L cataract surgery with implants- Dr Jacob Aguilar at [facility] PAST SURGICAL HISTORY OF 07/27/2015 cryo ablation, cardiac RPR UMBILICAL HRNA 5 YRS/> REDUCIBLE 07/17/2010 Hernia repair, umbilical >5yr [facility] Dr Manuel Hoover SHX COSMETIC SURGERY SKIN BIOPSY HX PMH, Social history, family history and surgical history reviewed and updated. REVIEW OF SYSTEMS: CONSTITUTIONAL: No fevers, chills, nightsweats, unintended weight loss HEENT: Denies nasal congestion/sinus symptoms, allergy problems. EYES: No diplopia or blurry vision. CARDIOVASCULAR: No chest pain, palpitations, orthopnea, PND. Chronic edema PULM: See HPI GI: No dysphagia/odynophagia. Reflux : No urinary complaints, including dysuria, gross hematuria or pyuria. NEURO: No new balance problems, peripheral weakness/paresthesias or numbness of concern. MUSC-SKEL: No joint pain, swelling, or erythema. PSY: No concerns regarding depression, anxiety INTEGUMENTARY: No new skin changes, easy bruising PHYSICAL EXAMINATION: BP 130/78 Pulse 58 Resp 14 Ht 4' 11.84 (1.52m) Wt 136 lb (61.7kg) SpO2 98% BMI 26.70 kg/(m^2). General Appearance: Age-appropriate female, NAD. Skin: Skin color, texture, turgor normal, no suspicious rashes or lesions. Head: Normocephalic, no masses, lesions, tenderness or abnormalities. Eyes: Sclera, conjunctiva normal. Arcus senilis. Oropharynx: No oral lesions or thrush. Neck: No JVD, no masses, left anterior cervical lymph node enlargement. Lungs: Not labored, normal to percussion, diffuse wheezes. Bronchial cough Heart: Regular rate and rhythm, no murmurs or gallops. Extremities: Left ankle edema, no clubbing. Neurologic: Alert and oriented, no focal findings. Lymph Nodes: No supraclavicular lymphadenopathy. Assessment/Plan: 1. Severe COPD, GOLD stage 3 -Changed inhaled therapy to Trelegy Ellipta with continued use of Atrovent as needed -Oximetry assessment. Encourage patient to wear oxygen at night especially in light of her underlying cardiac disease 2. Acute bronchitis -Course of doxycycline and 5-day course of oral steroids 3. Former cigarette smoker -Continued abstinence -Former smoker with sequelae of emphysema -Does not meet criteria for lung cancer screening based on duration of smoking cessation greater than 15 years 4. Paroxysmal atrial fibrillation -Arrhythmia may intermittently be contributing factor to her dyspnea on exertion -Anticoagulated -Rate controlled Sylvia Gamboa MD [facility] [place] documented in this encounter [facility] 01-24-2023 Miscellaneous Notes Pt notified and voiced understanding. Stephanie Randolph Ma Take 1/2 tablet of the 25mg of metoprolol twice a day and as instructed before take extra 1 tablet of furosemide and potassium today and tomorrow. Needs to call her cardiology group today in case they have any other recommendations. Let her know her sister was here very worried about her and was told to take you straight to ER if there is no improvement or worsening of symptoms. Thank you Gwendolyn Ballard APRN.CNP Pt notified. She has the 25 mg pills at home, is taking 25 mg 1 pill twice daily. Stephanie Randolph Ma She needs to call her cardiology office. Take an extra dose of lasix and potassium today and tomorrow. If no improvement or any worsening symptoms she needs to go to ER. Is she taking only 1/2 of her 50mg of metoprolol twice a day? If so, does she have any 25mg tablets? Thank you Gwendolyn Ballard APRN.CNP Spoke with pt, she states she is not feeling any better but no worse. Still SOB, using 2 L oxygen and that is keeping her at 93%. She states her heart rate running 48-55. Stephanie Randolph Ma Please let patient know there is no current infection or fluid on chest xray. Please also let her know that her blood counts, kidney function and electrolytes are similar to previous. No concern for blood clot in her lung at this time as d-dimer is negative. BNP is elevated but much improved from past levels. How is she feeling? How is her heart rate with the lower dose of metoprolol? Thank you Gwendolyn Ballard APRN.ANITHA Pt had blood work done at [facility] View External Labs - Chemistry [ID [id number]] Stephanie Randolph Ma documented in this encounter [facility] 01-23-2023 Note [facility] 01-23-2023 Note [facility] 01-23-2023 Instructions Gwendolyn Ballard APRN.CNP - 01/23/2023 3:00 PM EDT Decrease Metoprolol to 25mg Twice daily until you see cardiology. Flonase 2 sprays each nostril before bed and rinse out mouth after. documented in this encounter [facility] 01-23-2023 History of Present illness Narrative CC: Patient presents with: [facility] F/U [facility] Elizabeth Delgado is a 77 year old female who presents today for 2 week follow up. Patient has very concerning history with multiple hospitalizations over the past year for new onset A-fib, CHF, COPD, recurrent pneumonia, stroke, and recent C-Diff infection. Was seen 2 weeks ago in A-fib with junctional rhythm and nonspecific intraventricular block. Patient feeling well at last appointment had cardiology appointment the following week for all the SOB, wheezing, and her A-fib but was canceled for the 3rd time and did not follow up in this office as requested. Is now scheduled with them again next week. Does report that they increased he metoprolol to 50mg BID. With recurrent respiratory distress, home O2 use, recurrent pneumonia, she was to see pulmonology, but unable to get into [place] pulmonology until April. Presents today stating she feels terrible again. Started with productive cough day after seeing me last time and wheezing that wakes her up at night. Also sinus pressure with tenderness, fatigue, and swollen tender lymph nodes under her jaw. Still with shortness of breath requiring Oxygen @ 2L with exertion and using more often then at previous visit. When she eats milk products symptoms get much worse. Denies fever, chest pressure, edema (has resolved), or palpitations. Home COVID test was negative. Has been on albuterol before but caused her to go into a-fib so no longer takes any inhalers. Fell in bathtub today. Slipped while trying to place the shower head back in place. Fell on right shoulder. Did not lose consciousness and did not hit her head. Does have vertigo chronically but denies syncope, weakness, vision changes, confusion, or change in chronic vertigo. REVIEW OF SYSTEMS See HPI PAST MEDICAL HISTORY Diagnosis Date Anxiety Arthritis Atrial fibrillation (HCC) s/p ablation 07/2015 Backache, unspecified Cancer (HCC) Carpal tunnel syndrome, bilateral Congestive heart failure (HCC) DVT (deep venous thrombosis) (HCC) remote Esophageal reflux History of cardioversion 10/31/2018 History of DVT (deep vein thrombosis) 11/10/2015 HTN (hypertension) Irritable bowel syndrome Left carotid bruit 09/14/2018 noted by cardiology Left ventricular systolic dysfunction 11/08/2016 PONV (postoperative nausea and vomiting) S/P cervical spinal fusion Scoliosis PAST SURGICAL HISTORY Procedure Laterality Date ABDOMINAL SURGERY HX BREAST SURGERY HX CHOLECYSTECTOMY 10/2016 COLONOSCOPY 06/11/2022 repeat prn COLONOSCOPY FLX DX W/COLLJ SPEC WHEN PFRMD 10/06/2013 Colonoscopy COLONOSCOPY FLX DX W/COLLJ SPEC WHEN PFRMD 11/22/2015 Colonoscopy CONIZATION OF CERVIX, LEEP CURETTAGE EGD 06/11/2022 EGD TRANSORAL BIOPSY SINGLE/MULTIPLE 02/08/2011 ESOPHAGOGASTRODUODENOSCOPY TRANSORAL DIAGNOSTIC 10/06/2013 EGD ESOPHAGOGASTRODUODENOSCOPY TRANSORAL DIAGNOSTIC 11/22/2015 EGD ESOPHAGOGASTRODUODENOSCOPY TRANSORAL DIAGNOSTIC 02/28/2016 EGD EYE SURGERY HX HERNIA REPAIR HX LIG/TRNSXJ FLP TUBE ABDL/VAG APPR UNI/BI Tubal ligation NEUROPLASTY &/TRANSPOS MEDIAN NRV CARPAL TUNNE 02/14/2012 Carpal tunnel decomp - right OOPHORECTOMY PARTIAL/TOTAL UNI/BI 07/17/2010 Oophorectomy - left Dr. Manuel Hoover - Dr. Alessio Dahl PAST SURGICAL HISTORY OF NECK SURGERY, anterior fusion PAST SURGICAL HISTORY OF Face lift PAST SURGICAL HISTORY OF back surgery PAST SURGICAL HISTORY OF bilat foot surgey, bunionectomy PAST SURGICAL HISTORY OF benign tumor removed from right breast PAST SURGICAL HISTORY OF 03/2011 B/L cataract surgery with implants- Dr Jacob Aguilar at [facility] PAST SURGICAL HISTORY OF 07/27/2015 cryo ablation, cardiac RPR UMBILICAL HRNA 5 YRS/> REDUCIBLE 07/17/2010 Hernia repair, umbilical >5yr [facility] Dr Manuel Hoover SHX COSMETIC SURGERY SKIN BIOPSY HX ALLERGIES Cardizem [Diltiazem Hcl], Codeine, Entex [Phenylephrine-Guaifenesin], Etodolac, Meloxicam, Naproxen, Surgical Tape Adhesives [Other], Trazodone, and Zantac [Ranitidine Hcl] MEDICATIONS cefdinir (OMNICEF) 300 mg capsule Take 1 capsule by mouth twice daily. azithromycin (ZITHROMAX Z-DUONG) 250 mg tablet Take 2 tablets day one, then, 1 tablet daily until gone. valsartan (DIOVAN) 40 mg tablet Take 1 tablet by mouth once daily. sucralfate (CARAFATE) 100 mg/mL suspension Take 10 mL by mouth before meals and at bedtime. (560cc=2wks) famotidine (PEPCID) 20 mg tablet Take 1 tablet by mouth twice daily. diclofenac, EC, (VOLTAREN) 75 mg EC tablet Can use every other day for pain/inflammation. Take with food. flecainide (TAMBOCOR) 100 mg tablet Take 1 tablet by mouth twice daily. lidocaine (LIDODERM) 5 % Apply 1 Patch as directed every 24 hours. Apply patch for 12 hours, remove, and then wait 12 more hours before applying a new patch. Location: mid back metoprolol tartrate, short acting, (LOPRESSOR) 25 mg tablet Take 1 tablet by mouth twice daily. furosemide (LASIX) 40 mg tablet Take 1 tablet by mouth twice daily. sucralfate (CARAFATE) 1 gram tablet Take 1 tablet by mouth before meals and at bedtime. apixaban (ELIQUIS) 5 mg tab(s) Take by mouth twice daily. Bifidobacterium infantis (ALIGN) 10.5 mg (10 million cell) chew Take 1 tablet by mouth once daily. potassium chloride ER (K-DUR, KLOR-CON) 20 mEq tablet Take 1 tablet by mouth twice daily. melatonin 3 mg ODT Take 1 tablet by mouth daily at bedtime. MULTIVITAMIN WITH MINERALS (ONE-A-DAY 50 PLUS ORAL) Take by mouth. [id number] ORAL Take by mouth. CALCIUM CARBONATE/VITAMIN D3 (VITAMIN D-3 ORAL) Take 1,000 mg by mouth five times daily. (Patient not taking: No sig reported) FAMILY HISTORY Problem Relation Age of Onset Hypertension Mother Stroke Mother Coronary Artery Disease Father other (wilsons disease) Brother other (UMA'S DISEASE) Brother Liver dse, cirrhosis Social History Tobacco Use Smoking status: Former Packs/day: 2.00 Years: 35.00 Additional pack years: 0.00 Total pack years: 70.00 Types: Cigarettes Quit date: 11/09/2005 Years since quittin.2 Smokeless tobacco: Never Tobacco comments: Stopped smoking 12/2005 Vaping Use Vaping Use: Never used Substance Use Topics Alcohol use: Not Currently Drug use: No PHYSICAL EXAM BP 136/62 Pulse (!) 49 Temp 36.2 C (97.2 F) Resp 16 Wt 62.1 kg (137 lb) SpO2 92% BMI 25.06 kg/m General Appearance: well appearing, in no acute distress, alert Skin: Skin color, texture, turgor normal for age; Head: normocephalic, atraumatic Eyes: PERRLA, EOM's intact, conjunctiva pink and moist, no icterus, sclera white, non-injected Ears: external ears normal to inspection and palpation, canals clear, Left tympanic membrane normal. , Right tympanic membrane normal Nose/sinus: Nares normal. Septum midline. Mucosa normal. No drainage. Neck: Thyroid normal size and symmetric without palpable nodules, No adenopathy Oropharynx: tongue midline and normal, soft palate, uvula, and tonsils normal, palpation of salivary glands negative Lymph nodes: No cervical lymphadenopathy and No supraclavicular lymphadenopathy Lungs: Lungs clear to auscultation. No wheezing, rhonchi, rales. Heart: RRR without murmur, gallop, or rubs. No ectopy Extremities: No deformities, edema, skin discoloration, clubbing or cyanosis. Good capillary refill. Neurological: Gait normal. Sensation intact., speech normal, mental status intact Neck: Inspection: normal Palpation: nontender ROM: full Musculoskeletal: Right shoulder: normal to inspection. reported tenderness with palpation of scapula. No tenderness to deltoid, biceps tendon, trapezius, clavicle, AC (Acromioclavicular) joint, and SC (Sternoclavicular) joint. ROM: full. Special tests: Drop arm: -, Empty Can: -, Infraspinatus: -, Martin:-, Neer - Muscle strength: 5/5 upper, bilaterally Health maintenance reviewed with patient: Spirometry Never done BP Controlled (<130/80) Never done Alpha-1 Antitrypsin Deficiency Screening Never done DTaP,Tdap,Td Vaccine(1 - Tdap) due on 07/09/2018 Covid-19 Vaccine(4 - Moderna series) due on 05/18/2021 Shingrix Vaccine(3 of 3) due on 11/14/2021 Advance Directive Discussion Never done Depression Assessment due on 05/12/2022 Influenza Vaccine(1) due on 01/10/2023 Annual PCP Team Chronic Disease Visit due on 01/11/2024 Colorectal Cancer Screening due on 06/11/2024 Lipid Screening due on 01/18/2025 Diabetes Screening due on 12/26/2025 Bone Density Screening Completed Hepatitis C Screening Completed Pneumococcal Vaccine: 65+ Completed HPV Vaccine Aged Out Mammogram Screening Discontinued EKG Interpretation: RHYTHM: Sinus bradycardia at 53 beats per minute with sinus arrhythmia and nonspecific IVCD AXIS: Left axis deviation INTERVALS: 1st degree AV block DATA REVIEWED: No new labs ASSESSMENT/PLAN: 1. Atrial fibrillation, unspecified type (HCC) - ICD9: 427.31, ICD10: I48.91 (primary diagnosis) - currently not in a-fib. With the bradycardia and reported symptoms will decrease metoprolol back to 25mg twice daily until able to be seen by cardiology - as patient has been very ill with numerous heart issues over the last year, trying to find a new steward/stewardess second class that she can see regularly - ECG COMPLETE - CONSULT TO CARDIOLOGY - needs to follow up in 1 week 2. Bradycardia - ICD9: 427.89, ICD10: R00.1 As above - ECG COMPLETE - CONSULT TO CARDIOLOGY 3. Congestive heart failure, unspecified HF chronicity, unspecified heart failure type (HCC) - ICD9: 428.0, ICD10: I50.9 - with the increased SOB will recheck CXR and BNP, may need to increase lasix for short term. - BASIC METABOLIC PNL - NT PRO BNP - XR CHEST 2V FRONTAL/LAT - CONSULT TO CARDIOLOGY 4. Shortness of breath - ICD9: 786.05, ICD10: R06.02 As above - also concern for recurrent pneumonia. Is on eliquis but with recent hospitalization, inability to be active and worsening of symptoms will check d-dimer for possible PE - CBC + DIFF - BASIC METABOLIC PNL - NT PRO BNP - XR CHEST 2V FRONTAL/LAT - D-DIMER - CONSULT TO CARDIOLOGY 5. Recurrent pneumonia - ICD9: 486, ICD10: J18.9 As above - recent Cdiff infection so do not want to start any antibiotic therapy unless absolutely necessary - CBC + DIFF - XR CHEST 2V FRONTAL/LAT 6. Subacute cough - ICD9: 786.2, ICD10: R05.2 As above - XR CHEST 2V FRONTAL/LAT 7. On home oxygen therapy - ICD9: V46.2, ICD10: Z99.81 - also trying to get patient in with [facility] configuration manager - CONSULT TO CARDIOLOGY 8. History of recent hospitalization - ICD9: V13.9, ICD10: Z92.89 - D-DIMER 9. Acute pain of right shoulder - ICD9: 719.41, ICD10: M25.511 - scapula tender but no deformities noted - XR SHOULDER [id number] AP/TRUE AP RIGHT 10. Fall, initial encounter - ICD9: E888.9, ICD10: W19.XXXA - XR SHOULDER [id number] AP/TRUE AP RIGHT Prescription instructions reviewed with patient as applicable. Potential red flag symptoms discussed with the patient. Reviewed appropriate action plan to take if red flag symptoms occur. Patient agreeable to treatment plan. Gwendolyn Ballard APRN.ANITHA documented in this encounter [facility] 01-10-2023 Note [facility] 01-10-2023 History of Present illness Narrative CC: Patient presents with: Follow Up: 1 week follow up- in a fib, dizziness, leg swelling, SOB, fatigue HPI Elizabeth Delgado is a 77 year old female who presents today for follow up on shortness of breath and recent hospitalization of pneumonia and CHF. Does report her shortness of breath has improved and using oxygen less often. Still with same amount of fatigue. Fever at night has improved. Highest now is only 99.2. No more chills. Denies cough, wheezing, chest pressure, or change to chronic dizziness. Could feel she was in atrial fibrillation again this past Friday because of feeling palpitations along with some swelling to her legs at the same time. Went to [facility] for her scheduled visit but it was canceled, has new appointment with Dr. Ibarra next week. Denies chest pressure, syncope, ongoing palpitations, or any other new concern. REVIEW OF SYSTEMS See HPI PAST MEDICAL HISTORY Diagnosis Date Anxiety Arthritis Atrial fibrillation (HCC) s/p ablation 07/2015 Backache, unspecified Cancer (HCC) Carpal tunnel syndrome, bilateral Congestive heart failure (HCC) DVT (deep venous thrombosis) (HCC) remote Esophageal reflux History of cardioversion 10/31/2018 History of DVT (deep vein thrombosis) 11/10/2015 HTN (hypertension) Irritable bowel syndrome Left carotid bruit 09/14/2018 noted by cardiology Left ventricular systolic dysfunction 11/08/2016 PONV (postoperative nausea and vomiting) S/P cervical spinal fusion Scoliosis PAST SURGICAL HISTORY Procedure Laterality Date ABDOMINAL SURGERY HX BREAST SURGERY HX CHOLECYSTECTOMY 10/2016 COLONOSCOPY 06/11/2022 repeat prn COLONOSCOPY FLX DX W/COLLJ SPEC WHEN PFRMD 10/06/2013 Colonoscopy COLONOSCOPY FLX DX W/COLLJ SPEC WHEN PFRMD 11/22/2015 Colonoscopy CONIZATION OF CERVIX, LEEP CURETTAGE EGD 06/11/2022 EGD TRANSORAL BIOPSY SINGLE/MULTIPLE 02/08/2011 ESOPHAGOGASTRODUODENOSCOPY TRANSORAL DIAGNOSTIC 10/06/2013 EGD ESOPHAGOGASTRODUODENOSCOPY TRANSORAL DIAGNOSTIC 11/22/2015 EGD ESOPHAGOGASTRODUODENOSCOPY TRANSORAL DIAGNOSTIC 02/28/2016 EGD EYE SURGERY HX HERNIA REPAIR HX LIG/TRNSXJ FLP TUBE ABDL/VAG APPR UNI/BI Tubal ligation NEUROPLASTY &/TRANSPOS MEDIAN NRV CARPAL TUNNE 02/14/2012 Carpal tunnel decomp - right OOPHORECTOMY PARTIAL/TOTAL UNI/BI 07/17/2010 Oophorectomy - left Dr. Manuel Hoover - Dr. Alessio Dahl PAST SURGICAL HISTORY OF NECK SURGERY, anterior fusion PAST SURGICAL HISTORY OF Face lift PAST SURGICAL HISTORY OF back surgery PAST SURGICAL HISTORY OF bilat foot surgey, bunionectomy PAST SURGICAL HISTORY OF benign tumor removed from right breast PAST SURGICAL HISTORY OF 03/2011 B/L cataract surgery with implants- Dr Jacob Aguilar at [facility] PAST SURGICAL HISTORY OF 07/27/2015 cryo ablation, cardiac RPR UMBILICAL HRNA 5 YRS/> REDUCIBLE 07/17/2010 Hernia repair, umbilical >5yr [facility] Dr Manuel Hoover SHX COSMETIC SURGERY SKIN BIOPSY HX ALLERGIES Cardizem [Diltiazem Hcl], Codeine, Entex [Phenylephrine-Guaifenesin], Etodolac, Meloxicam, Naproxen, Surgical Tape Adhesives [Other], Trazodone, and Zantac [Ranitidine Hcl] MEDICATIONS cefdinir (OMNICEF) 300 mg capsule Take 1 capsule by mouth twice daily. azithromycin (ZITHROMAX Z-DUONG) 250 mg tablet Take 2 tablets day one, then, 1 tablet daily until gone. valsartan (DIOVAN) 40 mg tablet Take 1 tablet by mouth once daily. sucralfate (CARAFATE) 100 mg/mL suspension Take 10 mL by mouth before meals and at bedtime. (560cc=2wks) famotidine (PEPCID) 20 mg tablet Take 1 tablet by mouth twice daily. diclofenac, EC, (VOLTAREN) 75 mg EC tablet Can use every other day for pain/inflammation. Take with food. flecainide (TAMBOCOR) 100 mg tablet Take 1 tablet by mouth twice daily. lidocaine (LIDODERM) 5 % Apply 1 Patch as directed every 24 hours. Apply patch for 12 hours, remove, and then wait 12 more hours before applying a new patch. Location: mid back metoprolol tartrate, short acting, (LOPRESSOR) 25 mg tablet Take 1 tablet by mouth twice daily. furosemide (LASIX) 40 mg tablet Take 1 tablet by mouth twice daily. sucralfate (CARAFATE) 1 gram tablet Take 1 tablet by mouth before meals and at bedtime. (Patient not taking: Reported on 10/31/2022) apixaban (ELIQUIS) 5 mg tab(s) Take by mouth twice daily. Bifidobacterium infantis (ALIGN) 10.5 mg (10 million cell) chew Take 1 tablet by mouth once daily. potassium chloride ER (K-DUR, KLOR-CON) 20 mEq tablet Take 1 tablet by mouth twice daily. melatonin 3 mg ODT Take 1 tablet by mouth daily at bedtime. MULTIVITAMIN WITH MINERALS (ONE-A-DAY 50 PLUS ORAL) Take by mouth. CALCIUM CARBONATE/VITAMIN D3 (VITAMIN D-3 ORAL) Take 1,000 mg by mouth five times daily. (Patient not taking: No sig reported) [id number] ORAL Take by mouth. FAMILY HISTORY Problem Relation Age of Onset Hypertension Mother Stroke Mother Coronary Artery Disease Father other (wilsons disease) Brother other (UMA'S DISEASE) Brother Liver dse, cirrhosis Social History Tobacco Use Smoking status: Former Packs/day: 2.00 Years: 35.00 Additional pack years: 0.00 Total pack years: 70.00 Types: Cigarettes Quit date: 11/09/2005 Years since quittin.1 Smokeless tobacco: Never Tobacco comments: Stopped smoking 12/2005 Vaping Use Vaping Use: Never used Substance Use Topics Alcohol use: Not Currently Drug use: No PHYSICAL EXAM BP 130/62 (BP Site: Right Arm, BP Position: Sitting, BP Cuff Size: Regular Adult) Pulse 102 Resp 14 Ht 157.5 cm (5' 2 ) Wt 63 kg (139 lb) SpO2 95% BMI 25.42 kg/m General Appearance: well appearing, in no acute distress, alert Skin: Skin color, texture, turgor normal for age; Eyes: conjunctiva pink and moist, no icterus, sclera white, non-injected Lungs: Lungs clear to auscultation. No wheezing, rhonchi, rales. Heart: apical irregular rhythm without murmur, gallop, or rubs. No ectopy Extremities:Extremities normal. No deformities, edema, or skin discoloration Health maintenance reviewed with patient: SPIROMETRY Never done BP CONTROLLED (<130/80) Never done ALPHA-1 ANTITRYPSIN DEFICIENCY SCREENING Never done DTAP,TDAP,TD(1 - Tdap) due on 07/09/2018 COVID-19 VACCINE(4 - Moderna series) due on 05/18/2021 SHINGRIX VACCINE(3 of 3) due on 11/14/2021 ADVANCE DIRECTIVE DISCUSSION Never done DEPRESSION ASSESSMENT due on 05/12/2022 INFLUENZA(1) due on 01/10/2023 ANNUAL PCP TEAM CHRONIC DISEASE VISIT due on 01/04/2024 COLORECTAL CANCER SCREENING due on 06/11/2024 LIPID SCREEN due on 01/18/2025 DIABETES SCREEN due on 12/26/2025 BONE DENSITY Completed HEPATITIS C SCREENING Completed PNEUMOCOCCAL: 65+ Completed HPV VACCINE Aged Out MAMMOGRAM Discontinued EKG Interpretation: RHYTHM: Atrial fibrillation and competing junctional pacemaker and nonspecific intraventricular block. AXIS: Right axis deviation COMPARED WITH PRIOR: changed with a-fib, junctional rhythm, and intraventricular block DATA REVIEWED: No new labs ASSESSMENT/PLAN: 1. Pneumonia due to infectious organism, unspecified laterality, unspecified part of lung - ICD9: 486, ICD10: J18.9 (primary diagnosis) Symptoms almost fully resolved - still needing O2 at 2L with heavier exertion. - need to repeat CXR in 4 weeks 2. Atrial fibrillation, unspecified type (HCC) - ICD9: 427.31, ICD10: I48.91 Rate controlled - already on metoprolol, eliquis and flecainide as ordered by cardiology - patient has appointment with steward/stewardess second class next Friday - Follow up in 2 weeks unless appointment with cardiology is canceled and then follow up with me. - go to ER for increased palpitations, HR elevated above 120 consistently, chest pain, increase shortness of breath, or for any other urgent concerns. 3. Abnormal EKG - ICD9: 794.31, ICD10: R94.31 As above - junctional rhythm with intraventricular block. - discussed possibly ER with EKG changes but patient declines. With her symptoms improving would like to wait until she sees cardiology 4. Congestive heart failure, unspecified HF chronicity, unspecified heart failure type (HCC) - ICD9: 428.0, ICD10: I50.9 - no edema on exam and shortness of breath improving - continue with current medications and recommendations by cardiology Prescription instructions reviewed with patient as applicable. Potential red flag symptoms discussed with the patient. Reviewed appropriate action plan to take if red flag symptoms occur. Patient agreeable to treatment plan. Gwendolyn Ballard APRN.CNP documented in this encounter [facility] 01-03-2023 Note [facility] 01-03-2023 History of Present illness Narrative CC: Patient presents with: Hospital F/U: SOB, hospital follow up-pneumonia, CHF HPI Elizabeth Delgado is a very complex 77 year old female who presents today for Hospital follow-up. Has had multiple new concerns since last fall with multiple hospitalizations. Has CHF, A-fib, COPD, and recent stroke. Was recently seen with severe abdominal tenderness and bowel changes. CT of abdomen completed which was unconcerning and then tested and positive for cdiff. Directly after this she was admitted to the hospital. Prior to this she had a CXR which was negative for any infection or fluid a few weeks prior and day of CT scan, GFR was 57 and Creatinine 1.03 Facility: [facility] Date of visit: 12-31-01/02 Reason for visit: short of breath Hospital course: was 80% on RA on arrival to ER. acute exacerbation of CHF - IV lasix Acute GALINA Pneumonia- Antibitiotics. Also started on treatment for cdiff. At discharge Creatinine 1.31 with a GFR of 42, COPD exacerbation - bipap therapy Discharge: home O2, antibiotic treatment and lasix restarted at once daily. Current symptoms: Sees cardiology next week Patient with 88- lower 90s O2 sats in office, awaiting portable O2 which is to be delivered tonight. She is to use 2L with exertion or when short of breath. After sitting for a few minutes O2 sat got to 92% Diarrhea has improved with treatment for C-Diff. Still with some shortness of breath but much improved since beginning of hospital stay, nonproductive cough, had a fever of 101.5 last night that improved with tylenol, generalized weakness, and fatigue. Denies edema outside of small amount to ankles, wheezing, vomiting, or abdominal pain. No change in chronic nausea. REVIEW OF SYSTEMS See HPI PAST MEDICAL HISTORY Diagnosis Date Anxiety Arthritis Atrial fibrillation (HCC) s/p ablation 07/2015 Backache, unspecified Cancer (HCC) Carpal tunnel syndrome, bilateral Congestive heart failure (HCC) DVT (deep venous thrombosis) (HCC) remote Esophageal reflux History of cardioversion 10/31/2018 History of DVT (deep vein thrombosis) 11/10/2015 HTN (hypertension) Irritable bowel syndrome Left carotid bruit 09/14/2018 noted by cardiology Left ventricular systolic dysfunction 11/08/2016 PONV (postoperative nausea and vomiting) S/P cervical spinal fusion Scoliosis PAST SURGICAL HISTORY Procedure Laterality Date ABDOMINAL SURGERY HX BREAST SURGERY HX CHOLECYSTECTOMY 10/2016 COLONOSCOPY 06/11/2022 repeat prn COLONOSCOPY FLX DX W/COLLJ SPEC WHEN PFRMD 10/06/2013 Colonoscopy COLONOSCOPY FLX DX W/COLLJ SPEC WHEN PFRMD 11/22/2015 Colonoscopy CONIZATION OF CERVIX, LEEP CURETTAGE EGD 06/11/2022 EGD TRANSORAL BIOPSY SINGLE/MULTIPLE 02/08/2011 ESOPHAGOGASTRODUODENOSCOPY TRANSORAL DIAGNOSTIC 10/06/2013 EGD ESOPHAGOGASTRODUODENOSCOPY TRANSORAL DIAGNOSTIC 11/22/2015 EGD ESOPHAGOGASTRODUODENOSCOPY TRANSORAL DIAGNOSTIC 02/28/2016 EGD EYE SURGERY HX HERNIA REPAIR HX LIG/TRNSXJ FLP TUBE ABDL/VAG APPR UNI/BI Tubal ligation NEUROPLASTY &/TRANSPOS MEDIAN NRV CARPAL TUNNE 02/14/2012 Carpal tunnel decomp - right OOPHORECTOMY PARTIAL/TOTAL UNI/BI 07/17/2010 Oophorectomy - left Dr. Manuel oHover - Dr. Alessio Dahl PAST SURGICAL HISTORY OF NECK SURGERY, anterior fusion PAST SURGICAL HISTORY OF Face lift PAST SURGICAL HISTORY OF back surgery PAST SURGICAL HISTORY OF bilat foot surgey, bunionectomy PAST SURGICAL HISTORY OF benign tumor removed from right breast PAST SURGICAL HISTORY OF 03/2011 B/L cataract surgery with implants- Dr Jacob Aguilar at [facility] PAST SURGICAL HISTORY OF 07/27/2015 cryo ablation, cardiac RPR UMBILICAL HRNA 5 YRS/> REDUCIBLE 07/17/2010 Hernia repair, umbilical >5yr [facility] Dr Manuel Hoover SHX COSMETIC SURGERY SKIN BIOPSY HX ALLERGIES Cardizem [Diltiazem Hcl], Codeine, Entex [Phenylephrine-Guaifenesin], Etodolac, Meloxicam, Naproxen, Surgical Tape Adhesives [Other], Trazodone, and Zantac [Ranitidine Hcl] MEDICATIONS fidaxomicin (DIFICID) 200 mg tablet Take 1 tablet by mouth twice daily for 10 days. valsartan (DIOVAN) 40 mg tablet Take 1 tablet by mouth once daily. sucralfate (CARAFATE) 100 mg/mL suspension Take 10 mL by mouth before meals and at bedtime. (560cc=2wks) famotidine (PEPCID) 20 mg tablet Take 1 tablet by mouth twice daily. diclofenac, EC, (VOLTAREN) 75 mg EC tablet Can use every other day for pain/inflammation. Take with food. flecainide (TAMBOCOR) 100 mg tablet Take 1 tablet by mouth twice daily. lidocaine (LIDODERM) 5 % Apply 1 Patch as directed every 24 hours. Apply patch for 12 hours, remove, and then wait 12 more hours before applying a new patch. Location: mid back metoprolol tartrate, short acting, (LOPRESSOR) 25 mg tablet Take 1 tablet by mouth twice daily. furosemide (LASIX) 40 mg tablet Take 1 tablet by mouth twice daily. sucralfate (CARAFATE) 1 gram tablet Take 1 tablet by mouth before meals and at bedtime. (Patient not taking: Reported on 10/31/2022) apixaban (ELIQUIS) 5 mg tab(s) Take by mouth twice daily. Bifidobacterium infantis (ALIGN) 10.5 mg (10 million cell) chew Take 1 tablet by mouth once daily. potassium chloride ER (K-DUR, KLOR-CON) 20 mEq tablet Take 1 tablet by mouth twice daily. melatonin 3 mg ODT Take 1 tablet by mouth daily at bedtime. MULTIVITAMIN WITH MINERALS (ONE-A-DAY 50 PLUS ORAL) Take by mouth. CALCIUM CARBONATE/VITAMIN D3 (VITAMIN D-3 ORAL) Take 1,000 mg by mouth five times daily. (Patient not taking: No sig reported) [id number] ORAL Take by mouth. FAMILY HISTORY Problem Relation Age of Onset Hypertension Mother Stroke Mother Coronary Artery Disease Father other (wilsons disease) Brother other (UMA'S DISEASE) Brother Liver dse, cirrhosis Social History Tobacco Use Smoking status: Former Packs/day: 2.00 Years: 35.00 Additional pack years: 0.00 Total pack years: 70.00 Types: Cigarettes Quit date: 11/09/2005 Years since quittin.1 Smokeless tobacco: Never Tobacco comments: Stopped smoking 12/2005 Vaping Use Vaping Use: Never used Substance Use Topics Alcohol use: Not Currently Drug use: No PHYSICAL EXAM BP 130/68 (BP Site: Right Arm, BP Position: Sitting, BP Cuff Size: Regular Adult) Pulse 69 Resp 18 Ht 157.5 cm (5' 2 ) Wt 62.1 kg (137 lb) SpO2 92% BMI 25.06 kg/m General Appearance: in no acute distress, alert, appears tired Skin: Skin color, texture, turgor normal for age; Eyes: conjunctiva pink and moist, no icterus, sclera white, non-injected Lungs: Lungs with lower lobe bilateral faint crackles posteriorly. Heart: RRR without murmur, gallop, or rubs. No ectopy SPIROMETRY Never done BP CONTROLLED (<130/80) Never done ALPHA-1 ANTITRYPSIN DEFICIENCY SCREENING Never done DTAP,TDAP,TD(1 - Tdap) due on 07/09/2018 COVID-19 VACCINE(4 - Moderna series) due on 05/18/2021 SHINGRIX VACCINE(3 of 3) due on 11/14/2021 ADVANCE DIRECTIVE DISCUSSION Never done DEPRESSION ASSESSMENT due on 05/12/2022 INFLUENZA(1) due on 01/10/2023 ANNUAL PCP TEAM CHRONIC DISEASE VISIT due on 12/27/2023 COLORECTAL CANCER SCREENING due on 06/11/2024 LIPID SCREEN due on 01/18/2025 DIABETES SCREEN due on 12/26/2025 BONE DENSITY Completed HEPATITIS C SCREENING Completed PNEUMOCOCCAL: 65+ Completed HPV VACCINE Aged Out MAMMOGRAM Discontinued DATA REVIEWED: Outside chart from [facility] reviewed. Also reviewed recent lab work for comparison. ASSESSMENT/PLAN: 1. History of recent hospitalization - ICD9: V13.9, ICD10: Z92.89 (primary diagnosis) - symptoms improving but reports of a fever are concerning. Has had reported this on and off but has been afebrile in office. Patient to bring in thermometer to next visit to validate accuracy. - finish antibiotics - see cardiology as scheduled. 2. Congestive heart failure, unspecified HF chronicity, unspecified heart failure type (HCC) - ICD9: 428.0, ICD10: I50.9 Stable - continue with recommendations by cardiology - BASIC METABOLIC PNL - CBC 3. Pneumonia due to infectious organism, unspecified laterality, unspecified part of lung - ICD9: 486, ICD10: J18.9 - symptoms improving, finish antibiotic regimen. - go to ER for continued fever, increase in shortness of breath, chest pain, or any other urgent concern. 4. Chronic obstructive pulmonary disease, unspecified COPD type (HCC) - ICD9: 496, ICD10: J44.9 - stable at this time - CONSULT TO PULMONARY MEDICINE 5. Function kidney decreased - ICD9: 593.9, ICD10: N28.9 - possibly the CT dye is cause - recheck next week to make sure kidney function continues to improve - BASIC METABOLIC PNL - CBC 6. C. difficile diarrhea - ICD9: 008.45, ICD10: A04.72 - continue with current treatment - follow up in 1 week 7. On home oxygen therapy - ICD9: V46.2, ICD10: Z99.81 - continue with O2 @2L with exertion. Needs portable o2 tank to easily walk with oxygen and take to appointments - patient states this will get delivered later today but will call for any concerns. Prescription instructions reviewed with patient as applicable. Potential red flag symptoms discussed with the patient. Reviewed appropriate action plan to take if red flag symptoms occur. Patient agreeable to treatment plan. Gwendolyn Ballard APRN.ANITHA documented in this encounter [facility] 12-30-2022 Miscellaneous Notes Patient notified. Felicitas Prince LPN Please call patient and let her know that I am going to send in an antibiotic, called Dificid-she is going to take this twice a day for 10 days. Please let her know the importance of finishing the entire course. Yes she is potentially infectious to others-primarily those that she lives in the same environment with, and uses the same bathroom. If possible, have family members avoid using the same toilet. The most important thing is good hand hygiene, washing her hands with soap and water as frequently as possible. Davin Victor PA-C Patient stating having frequent BM's a total of 6 this morning. Stool is not diarrhea but very soft and frequent. Patient also asking if she is contagious as she has several elderly neighbors. Please advise Tamanna/Felicitas One of her stool samples is positive for c-diff but a different verification is negative. As she has been on antibiotics often over the last year I would recommend treatment if she is still having symptoms of multiple bouts of diarrhea and abdominal pain with vancomycin. Please call patient and get update on symptoms. Davin, As I am out of the office, would you be willing to prescribe treatment for c-diff if patient is still symptomatic? I only want to treat if necessary as she has had multiple concerns and med changes over the last year. Thank you Gwendolyn Ballard APRN.ANITHA documented in this encounter [facility] 12-26-2022 Note [facility] 12-26-2022 Miscellaneous Notes Spoke with patient. Given message from provider's office. Patient verbalizes understanding. Olga Lidia Lima RN Called and left a voicemail for the Patient to call back and ask for a nurse to receive the providers message. Asha Ortiz RN Please let patient know that her CT scan did not show any acute concerns for her intense abdominal pain and bowel changes. We can discuss further at your follow up appointment. I am ordering stool samples to check for any infectious process. Thank you Gwendolyn Ballard APRN.ANITHA documented in this encounter [facility] 12-26-2022 History of Present illness Narrative Radiology Service Progress Note DATE OF SERVICE: December 26, 2022 TIME: 3:32 PM PATIENT IDENTITY VERIFICATION COMPLETED USING TWO (2) STANDARD IDENTIFIERS: Name and Date of confirmed by patient verbally. FALL SCREENING: Has the patient had 2 falls in the last year or 1 fall with injury or currently using an Ambulatory Assistive Device (Walker, Cane, Wheelchair, Crutches, etc.)? No PATIENT GENDER DATA: Female. status: : No status: NO. PATIENT RELEVANT IMPLANT DATA REVIEWED: Yes ALLERGIES: Reviewed and unchanged CONTRAST ALLERGY: NO. EXAM: CT -CONTRAST INDUCED NEPHROPATHY RISK FACTORS: Patient age > 60 years CREATININE: Creatinine Date Value Ref Range Status 12/26/2022 1.03 (H) 0.58 - 0.96 mg/dL Final 12/12/2022 1.07 (H) 0.58 - 0.96 mg/dL Final 05/15/2022 0.76 0.58 - 0.96 mg/dL Final Estimated Glomerular Filtration Rate Date Value Ref Range Status 12/26/2022 57 (L) >=60 mL/min/1.73m Final Comment: Estimated Glomerular Filtration Rate (eGFR) is calculated using the 2020 CKD-EPI creatinine equation. This equation utilizes serum creatinine, sex, and age as parameters. The creatinine assay has traceable calibration to isotope dilution-mass spectrometry. Refer to KDIGO guidelines for clinical interpretation. In patients with unstable renal function, e.g. those with acute kidney injury, the eGFR may not accurately reflect actual GFR. eGFR- Date Value Ref Range Status 03/12/2021 >60 Final P.O.C.T. RESULTS: POC done: Yes, See Lab Tab December 26, 2022 TREATMENT: N/A PERIPHERAL IV DATA: Ambulatory: A peripheral IV was started in the Left hand with a Angio cath: 22 gauge. RADIOLOGY DEPARTMENT: CT; Exam(s) Completed: Abdomen/Pelvis SIGNATURE: RT Sasha(R) PATIENT NAME: Elizabeth Delgado DATE: December 26, 2022 TIME: 3:32 PM documented in this encounter [facility] 12-26-2022 Note [facility] 12-26-2022 History of Present illness Narrative CC: Patient presents with: Recheck: Follow up, fever HPI Elizabeth Delgado is a 77 year old female who presents today for follow up on fever and sinusitis. Patient very complex with multiple issues over the last year including new onset A-fib, CVA, recurrent pneumonia, and CHF. Has been off of work and wants to go back but has been unable due to symptoms of fatigue and other issues. All previous symptoms of sinusitis have improved but has new concerns. Temp in the evenings is now only in the 99s. Denies any cough, wheezing, sinus congestion, headaches, or chills. New concerns: Started 1 week ago with bowel changes. Stool at first was soft formed and black which color was new on (is on iron treatment). On Friday stool remained formed but was reddish brown in color with large amounts mucous and bright red blood. Still passing a lot of mucous and bright red blood. Stool is soft and formed but is with urgency at least 5 times a day. Reports she sometimes passes just mucous with red streaked spots with some black and states had 15-20 episodes and continued over the weekend. Started taking peptobismol on Friday and has been helping. Today she has had 4-5 soft formed black bowel movements. Reports also having lower abdomen cramping which improves with passing gas with the blood and mucous . Also denies any foul smelling stool or vomiting. Reports her chronic nausea has increased with stool changes. Has not eaten anything she can pinpoint as possible food bourne illness but was recently on an antibiotic and over the last year has bene on antibiotics multiple times. Colonoscopy completed earlier this year without any concerns. Was seeing Dr. Stokes for reflux issues earlier this year and noted he wanted her to follow up immediately for bowel changes. Is on eliquis for DVT prophylaxis. REVIEW OF SYSTEMS See HPI PAST MEDICAL HISTORY Diagnosis Date Anxiety Arthritis Atrial fibrillation (HCC) s/p ablation 07/2015 Backache, unspecified Cancer (HCC) Carpal tunnel syndrome, bilateral Congestive heart failure (HCC) DVT (deep venous thrombosis) (HCC) remote Esophageal reflux History of cardioversion 10/31/2018 History of DVT (deep vein thrombosis) 11/10/2015 HTN (hypertension) Irritable bowel syndrome Left carotid bruit 09/14/2018 noted by cardiology Left ventricular systolic dysfunction 11/08/2016 PONV (postoperative nausea and vomiting) S/P cervical spinal fusion Scoliosis PAST SURGICAL HISTORY Procedure Laterality Date ABDOMINAL SURGERY HX BREAST SURGERY HX CHOLECYSTECTOMY 10/2016 COLONOSCOPY 06/11/2022 repeat prn COLONOSCOPY FLX DX W/COLLJ SPEC WHEN PFRMD 10/06/2013 Colonoscopy COLONOSCOPY FLX DX W/COLLJ SPEC WHEN PFRMD 11/22/2015 Colonoscopy CONIZATION OF CERVIX, LEEP CURETTAGE EGD 06/11/2022 EGD TRANSORAL BIOPSY SINGLE/MULTIPLE 02/08/2011 ESOPHAGOGASTRODUODENOSCOPY TRANSORAL DIAGNOSTIC 10/06/2013 EGD ESOPHAGOGASTRODUODENOSCOPY TRANSORAL DIAGNOSTIC 11/22/2015 EGD ESOPHAGOGASTRODUODENOSCOPY TRANSORAL DIAGNOSTIC 02/28/2016 EGD EYE SURGERY HX HERNIA REPAIR HX LIG/TRNSXJ FLP TUBE ABDL/VAG APPR UNI/BI Tubal ligation NEUROPLASTY &/TRANSPOS MEDIAN NRV CARPAL TUNNE 02/14/2012 Carpal tunnel decomp - right OOPHORECTOMY PARTIAL/TOTAL UNI/BI 07/17/2010 Oophorectomy - left Dr. Manuel Hoover - Dr. Alessio Dahl PAST SURGICAL HISTORY OF NECK SURGERY, anterior fusion PAST SURGICAL HISTORY OF Face lift PAST SURGICAL HISTORY OF back surgery PAST SURGICAL HISTORY OF bilat foot surgey, bunionectomy PAST SURGICAL HISTORY OF benign tumor removed from right breast PAST SURGICAL HISTORY OF 03/2011 B/L cataract surgery with implants- Dr Jacob Aguilar at [facility] PAST SURGICAL HISTORY OF 07/27/2015 cryo ablation, cardiac RPR UMBILICAL HRNA 5 YRS/> REDUCIBLE 07/17/2010 Hernia repair, umbilical >5yr [facility] Dr Manuel Hoover SHX COSMETIC SURGERY SKIN BIOPSY HX ALLERGIES Cardizem [Diltiazem Hcl], Codeine, Entex [Phenylephrine-Guaifenesin], Etodolac, Meloxicam, Naproxen, Surgical Tape Adhesives [Other], Trazodone, and Zantac [Ranitidine Hcl] MEDICATIONS valsartan (DIOVAN) 40 mg tablet Take 1 tablet by mouth once daily. sucralfate (CARAFATE) 100 mg/mL suspension Take 10 mL by mouth before meals and at bedtime. (560cc=2wks) famotidine (PEPCID) 20 mg tablet Take 1 tablet by mouth twice daily. diclofenac, EC, (VOLTAREN) 75 mg EC tablet Can use every other day for pain/inflammation. Take with food. flecainide (TAMBOCOR) 100 mg tablet Take 1 tablet by mouth twice daily. lidocaine (LIDODERM) 5 % Apply 1 Patch as directed every 24 hours. Apply patch for 12 hours, remove, and then wait 12 more hours before applying a new patch. Location: mid back metoprolol tartrate, short acting, (LOPRESSOR) 25 mg tablet Take 1 tablet by mouth twice daily. furosemide (LASIX) 40 mg tablet Take 1 tablet by mouth twice daily. sucralfate (CARAFATE) 1 gram tablet Take 1 tablet by mouth before meals and at bedtime. (Patient not taking: Reported on 10/31/2022) apixaban (ELIQUIS) 5 mg tab(s) Take by mouth twice daily. Bifidobacterium infantis (ALIGN) 10.5 mg (10 million cell) chew Take 1 tablet by mouth once daily. potassium chloride ER (K-DUR, KLOR-CON) 20 mEq tablet Take 1 tablet by mouth twice daily. melatonin 3 mg ODT Take 1 tablet by mouth daily at bedtime. MULTIVITAMIN WITH MINERALS (ONE-A-DAY 50 PLUS ORAL) Take by mouth. CALCIUM CARBONATE/VITAMIN D3 (VITAMIN D-3 ORAL) Take 1,000 mg by mouth five times daily. (Patient not taking: No sig reported) [id number] ORAL Take by mouth. FAMILY HISTORY Problem Relation Age of Onset Hypertension Mother Stroke Mother Coronary Artery Disease Father other (wilsons disease) Brother other (UMA'S DISEASE) Brother Liver dse, cirrhosis Social History Tobacco Use Smoking status: Former Packs/day: 2.00 Years: 35.00 Additional pack years: 0.00 Total pack years: 70.00 Types: Cigarettes Quit date: 11/09/2005 Years since quittin.1 Smokeless tobacco: Never Tobacco comments: Stopped smoking 12/2005 Vaping Use Vaping Use: Never used Substance Use Topics Alcohol use: Not Currently Drug use: No PHYSICAL EXAM BP 142/80 Pulse (!) 56 Temp 36.3 C (97.3 F) (Temporal) Resp 16 Wt 62.6 kg (138 lb) SpO2 96% BMI 25.24 kg/m General Appearance: well appearing, in no acute distress, alert Eyes: conjunctiva pink and moist, no icterus, sclera white, non-injected Lungs: Lungs clear to auscultation. No wheezing, rhonchi, rales. Heart: RRR without murmur, gallop, or rubs. No ectopy Abdomen: Abdomen soft, Bowel sounds normal. No masses, organomegaly. Exquisite tenderness with grimacing and guarding to RLQ. No rebound tenderness noted. Tenderness to LLQ as well with grimacing but not as severe and without guarding. No rigidity or rebound pain noted. Health maintenance reviewed with patient: SPIROMETRY Never done BP CONTROLLED (<130/80) Never done ALPHA-1 ANTITRYPSIN DEFICIENCY SCREENING Never done DTAP,TDAP,TD(1 - Tdap) due on 07/09/2018 COVID-19 VACCINE(4 - Moderna series) due on 05/18/2021 SHINGRIX VACCINE(3 of 3) due on 11/14/2021 ADVANCE DIRECTIVE DISCUSSION Never done DEPRESSION ASSESSMENT due on 05/12/2022 INFLUENZA(1) due on 01/10/2023 ANNUAL PCP TEAM CHRONIC DISEASE VISIT due on 12/13/2023 COLORECTAL CANCER SCREENING due on 06/11/2024 LIPID SCREEN due on 01/18/2025 DIABETES SCREEN due on 12/12/2025 BONE DENSITY Completed HEPATITIS C SCREENING Completed PNEUMOCOCCAL: 65+ Completed HPV VACCINE Aged Out MAMMOGRAM Discontinued DATA REVIEWED: Most recent labs ASSESSMENT/PLAN: 1. Left lower quadrant abdominal pain - ICD9: 789.04, ICD10: R10.32 (primary diagnosis) - with the intensity of tenderness to RLQ and with pain to LLQ needs STAT evaluation. Still has appendix so appendicitis cannot be excluded versus diverticulitis versus other cause. If CT normal will do stool studies and she is high risk for C-diff and recent antibiotic will also check for blood, enteric panel, and lactoferrin. - CBC - BASIC METABOLIC PNL - CT ABD/PEL W IVCON - IV CONTRAST (RADIOLOGY PROCEDURE) - ENTERIC CONTRAST (RADIOLOGY PROCEDURE) - follow up next week. - go to ER for increased pain, shortness of breath, fever, hardening of your abdomen or any other urgent concerns. 2. Right lower quadrant abdominal tenderness without rebound tenderness - ICD9: 789.63, ICD10: R10.813 As above - CBC - BASIC METABOLIC PNL - CT ABD/PEL W IVCON - IV CONTRAST (RADIOLOGY PROCEDURE) - ENTERIC CONTRAST (RADIOLOGY PROCEDURE) 3. Bowel habit changes - ICD9: 787.99, ICD10: R19.4 See #1 - CBC - BASIC METABOLIC PNL - CT ABD/PEL W IVCON - IV CONTRAST (RADIOLOGY PROCEDURE) - ENTERIC CONTRAST (RADIOLOGY PROCEDURE) 4. Blood in stool - ICD9: 578.1, ICD10: K92.1 See #1 - CBC - BASIC METABOLIC PNL - CT ABD/PEL W IVCON - IV CONTRAST (RADIOLOGY PROCEDURE) - ENTERIC CONTRAST (RADIOLOGY PROCEDURE) Prescription instructions reviewed with patient as applicable. Potential red flag symptoms discussed with the patient. Reviewed appropriate action plan to take if red flag symptoms occur. Patient agreeable to treatment plan. Gwendolyn Ballard APRN.CNP documented in this encounter [facility] 12-13-2022 Miscellaneous Notes Agree. Patient needs to take lasix as ordered. Can review further at follow up. Thank you Gwendolyn Ballard APRN.CNP Spoke with patient, only taking Lasix as needed. Informed patient o get in contact with Cardiology and make them aware of results and to start taking medication as ordered. Slight increase in BNP which could indicate fluid overload. Has she been taking her lasix BID as ordered by cardiology? Also, covid and CXR were negative. Take care Gwendolyn Ballard APRN.CNP documented in this encounter [facility] 12-12-2022 Note [facility] 12-12-2022 Note [facility] 12-12-2022 History of Present illness Narrative CC: Patient presents with: Recheck: Follow up HPI Elizabeth Delgado is a 77 year old female who presents today for follow up on balance concerns in hopes to go back to work. Still with nonproductive cough. Now with feelings of wheezing since Friday when she was exposed to sulfuric acid fumes trying to clear out a clogged drain. Has had a fever for the past week, highest was earlier this week at 101.2, but thinks she removes thermometer before it beeps so might be even higher. Has had BLE edema over the past few weeks which improves with elevating her legs some but not fully. Will still have some leg weakness that comes and goes which she has had prior to her recent stroke. Has had sinus headache behind her eyes over the last few days. This is in conjunction with sneezing, slight sore throat, and runny nose. Feels like her neck is puffy at times and had some pain yesterday in her right ear. 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 Chronic nausea and slight epigastric pain. Denies any vomiting, diarrhea or constipation. REVIEW OF SYSTEMS General: See HPI Respiratory: no shortness of breath, no hemoptysis Cardiovascular: no chest pain, no chest pressure, and no palpitations GI: See HPI Neurologic: No headache, weakness,dizziness, memory loss, syncope. PAST MEDICAL HISTORY Diagnosis Date Anxiety Arthritis Atrial fibrillation (HCC) s/p ablation 07/2015 Backache, unspecified Cancer (HCC) Carpal tunnel syndrome, bilateral Congestive heart failure (HCC) DVT (deep venous thrombosis) (HCC) remote Esophageal reflux History of cardioversion 10/31/2018 History of DVT (deep vein thrombosis) 11/10/2015 HTN (hypertension) Irritable bowel syndrome Left carotid bruit 09/14/2018 noted by cardiology Left ventricular systolic dysfunction 11/08/2016 PONV (postoperative nausea and vomiting) S/P cervical spinal fusion Scoliosis PAST SURGICAL HISTORY Procedure Laterality Date ABDOMINAL SURGERY HX BREAST SURGERY HX CHOLECYSTECTOMY 10/2016 COLONOSCOPY 06/11/2022 repeat prn COLONOSCOPY FLX DX W/COLLJ SPEC WHEN PFRMD 10/06/2013 Colonoscopy COLONOSCOPY FLX DX W/COLLJ SPEC WHEN PFRMD 11/22/2015 Colonoscopy CONIZATION OF CERVIX, LEEP CURETTAGE EGD 06/11/2022 EGD TRANSORAL BIOPSY SINGLE/MULTIPLE 02/08/2011 ESOPHAGOGASTRODUODENOSCOPY TRANSORAL DIAGNOSTIC 10/06/2013 EGD ESOPHAGOGASTRODUODENOSCOPY TRANSORAL DIAGNOSTIC 11/22/2015 EGD ESOPHAGOGASTRODUODENOSCOPY TRANSORAL DIAGNOSTIC 02/28/2016 EGD EYE SURGERY HX HERNIA REPAIR HX LIG/TRNSXJ FLP TUBE ABDL/VAG APPR UNI/BI Tubal ligation NEUROPLASTY &/TRANSPOS MEDIAN NRV CARPAL TUNNE 02/14/2012 Carpal tunnel decomp - right OOPHORECTOMY PARTIAL/TOTAL UNI/BI 07/17/2010 Oophorectomy - left Dr. Manuel Hoover - Dr. Alessio Dahl PAST SURGICAL HISTORY OF NECK SURGERY, anterior fusion PAST SURGICAL HISTORY OF Face lift PAST SURGICAL HISTORY OF back surgery PAST SURGICAL HISTORY OF bilat foot surgey, bunionectomy PAST SURGICAL HISTORY OF benign tumor removed from right breast PAST SURGICAL HISTORY OF 03/2011 B/L cataract surgery with implants- Dr Jacob Aguilar at [facility] PAST SURGICAL HISTORY OF 07/27/2015 cryo ablation, cardiac RPR UMBILICAL HRNA 5 YRS/> REDUCIBLE 07/17/2010 Hernia repair, umbilical >5yr [facility] Dr Manuel Hoover SHX COSMETIC SURGERY SKIN BIOPSY HX ALLERGIES Cardizem [Diltiazem Hcl], Codeine, Entex [Phenylephrine-Guaifenesin], Etodolac, Meloxicam, Naproxen, Surgical Tape Adhesives [Other], Trazodone, and Zantac [Ranitidine Hcl] MEDICATIONS sucralfate (CARAFATE) 100 mg/mL suspension Take 10 mL by mouth before meals and at bedtime. (560cc=2wks) famotidine (PEPCID) 20 mg tablet Take 1 tablet by mouth twice daily. diclofenac, EC, (VOLTAREN) 75 mg EC tablet Can use every other day for pain/inflammation. Take with food. flecainide (TAMBOCOR) 100 mg tablet Take 1 tablet by mouth twice daily. valsartan (DIOVAN) 40 mg tablet Take 1 tablet by mouth once daily. lidocaine (LIDODERM) 5 % Apply 1 Patch as directed every 24 hours. Apply patch for 12 hours, remove, and then wait 12 more hours before applying a new patch. Location: mid back metoprolol tartrate, short acting, (LOPRESSOR) 25 mg tablet Take 1 tablet by mouth twice daily. furosemide (LASIX) 40 mg tablet Take 1 tablet by mouth twice daily. sucralfate (CARAFATE) 1 gram tablet Take 1 tablet by mouth before meals and at bedtime. (Patient not taking: Reported on 10/31/2022) apixaban (ELIQUIS) 5 mg tab(s) Take by mouth twice daily. Bifidobacterium infantis (ALIGN) 10.5 mg (10 million cell) chew Take 1 tablet by mouth once daily. potassium chloride ER (K-DUR, KLOR-CON) 20 mEq tablet Take 1 tablet by mouth twice daily. melatonin 3 mg ODT Take 1 tablet by mouth daily at bedtime. MULTIVITAMIN WITH MINERALS (ONE-A-DAY 50 PLUS ORAL) Take by mouth. CALCIUM CARBONATE/VITAMIN D3 (VITAMIN D-3 ORAL) Take 1,000 mg by mouth five times daily. (Patient not taking: No sig reported) [id number] ORAL Take by mouth. FAMILY HISTORY Problem Relation Age of Onset Hypertension Mother Stroke Mother Coronary Artery Disease Father other (wilsons disease) Brother other (UMA'S DISEASE) Brother Liver dse, cirrhosis Social History Tobacco Use Smoking status: Former Packs/day: 2.00 Years: 35.00 Total pack years: 70.00 Types: Cigarettes Quit date: 11/09/2005 Years since quittin.1 Smokeless tobacco: Never Tobacco comments: Stopped smoking 12/2005 Vaping Use Vaping Use: Never used Substance Use Topics Alcohol use: Not Currently Drug use: No PHYSICAL EXAM BP 136/72 Pulse (!) 56 Temp 36.7 C (98 F) (Temporal) Resp 16 Wt 64.4 kg (142 lb) SpO2 94% BMI 25.97 kg/m General Appearance: well appearing, in no acute distress, alert Skin: Skin color, texture, turgor normal for age; Eyes: conjunctiva pink and moist, no icterus, sclera white, non-injected Ears: external ears normal to inspection and palpation, canals clear, Left tympanic membrane normal. , Right tympanic membrane normal Nose/sinus: Nares normal. Septum midline. Mucosa normal. No drainage., No sinus tenderness Neck: Thyroid normal size and symmetric without palpable nodules, Neck supple, No adenopathy Oropharynx: tongue midline and normal, soft palate, uvula, and tonsils normal. Erythema to posterior pharynx Lymph nodes: No cervical lymphadenopathy, No supraclavicular lymphadenopathy, No axillary lymphadenopathy., and No inguinal lymphadenopathy. Lungs: Lungs clear to auscultation. No wheezing, rhonchi, rales. Heart: RRR without murmur, gallop, or rubs. No ectopy Extremities: No deformities, edema, skin discoloration, clubbing or cyanosis. Good capillary refill. Neurological: Gait normal. Reflexes normal and symmetric. Sensation grossly intact. Health maintenance reviewed with patient: SPIROMETRY Never done BP CONTROLLED (<130/80) Never done ALPHA-1 ANTITRYPSIN DEFICIENCY SCREENING Never done DTAP,TDAP,TD(1 - Tdap) due on 07/09/2018 COVID-19 VACCINE(4 - Moderna series) due on 05/18/2021 SHINGRIX VACCINE(3 of 3) due on 11/14/2021 ADVANCE DIRECTIVE DISCUSSION Never done DEPRESSION ASSESSMENT due on 05/12/2022 INFLUENZA(1) due on 01/10/2023 ANNUAL PCP TEAM CHRONIC DISEASE VISIT due on 11/01/2023 COLORECTAL CANCER SCREENING due on 06/11/2024 LIPID SCREEN due on 01/18/2025 DIABETES SCREEN due on 05/15/2025 BONE DENSITY Completed HEPATITIS C SCREENING Completed PNEUMOCOCCAL: 65+ Completed HPV VACCINE Aged Out MAMMOGRAM Discontinued DATA REVIEWED: No new labs ASSESSMENT/PLAN: 1. Fever, unspecified fever cause - ICD9: 780.60, ICD10: R50.9 (primary diagnosis) - possibly from sinusitis - starting on cefdinir - follow up in 2 weeks - RAPID STREP TEST B/O - 2019 CORONAVIRUS - XR CHEST 2V FRONTAL/LAT - CBC + DIFF - COMP METABOLIC PANEL 2. Cough, unspecified type - ICD9: 786.2, ICD10: R05.9 As above - 2019 CORONAVIRUS - XR CHEST 2V FRONTAL/LAT - CBC + DIFF - COMP METABOLIC PANEL 3. Wheezing - ICD9: 786.07, ICD10: R06.2 - 2019 CORONAVIRUS - XR CHEST 2V FRONTAL/LAT - CBC + DIFF - COMP METABOLIC PANEL 4. Sore throat - ICD9: 462, ICD10: J02.9 - Discussed supportive care treatment with fluids, rest and analgesia. - RAPID STREP TEST B/O - 2019 CORONAVIRUS 5. Bilateral lower extremity edema - ICD9: 782.3, ICD10: R60.0 - NT PRO BNP - COMP METABOLIC PANEL 6. Congestive heart failure, unspecified HF chronicity, unspecified heart failure type (HCC) - ICD9: 428.0, ICD10: I50.9 Weight increasing, no edema on exam - after appointment BNP was found to be elevated and patient not taking her lasix as ordered by cardiology. Instructed to restart lasix as previously ordered and follow up with cardiology. - NT PRO BNP Prescription instructions reviewed with patient as applicable. Potential red flag symptoms discussed with the patient. Reviewed appropriate action plan to take if red flag symptoms occur. Patient agreeable to treatment plan. Gwendolyn Ballard APRN.ANITHA documented in this encounter [facility] [place] 10-31-2022 Note [facility] 10-31-2022 History of Present illness Narrative Reason for Visit Patient presents with: Recheck: 2 month Elizabeth Delgado is a 77 year old female who presents here today for Above Complaints.. Health Maintenance SPIROMETRY BP CONTROLLED (<130/80) ALPHA-1 ANTITRYPSIN DEFICIENCY SCREENING DTAP,TDAP,TD(1 - Tdap) COVID-19 VACCINE(4 - Booster for Moderna series) SHINGRIX VACCINE(3 of 3) ADVANCE DIRECTIVE DISCUSSION DEPRESSION ASSESSMENT HPI Patient has had 5 weeks of therapyFor gait and balance issues, she is getting it 2 times a week Finds it to be def beneficial . But she is not able to walk steadily yet so she should not be working. Work ing makes her happy, , currently not working and is really not happy that she is not working but is not ready for work yet, she will be assessed in 6 weeks to eval for stability of the gait. Wanted to know about the watchman procedure. As she does not want to be on the blood thinner, Her brother had it and that seems to also be a motivator Is on diclofenac and is wanting refills, we discussed about the need for her to take as little as possible for it. Recent gfr is in the 70 range and good for her HTN: BP controlled today. Checks BP at home. Compliant with medications. Denies any chest pain, palpitations, SOB, swelling in the feet. Careful with diet to avoid salt, trying to eat more fruits and vegetables, exercises regularly No problem-specific Assessment & Plan notes found for this encounter. PAST MEDICAL HISTORY Diagnosis Date Anxiety Arthritis Atrial fibrillation (HCC) s/p ablation 07/2015 Backache, unspecified Cancer (HCC) Carpal tunnel syndrome, bilateral Congestive heart failure (HCC) DVT (deep venous thrombosis) (HCC) remote Esophageal reflux History of cardioversion 10/31/2018 History of DVT (deep vein thrombosis) 11/10/2015 HTN (hypertension) Irritable bowel syndrome Left carotid bruit 09/14/2018 noted by cardiology Left ventricular systolic dysfunction 11/08/2016 PONV (postoperative nausea and vomiting) S/P cervical spinal fusion Scoliosis PAST SURGICAL HISTORY Procedure Laterality Date ABDOMINAL SURGERY HX BREAST SURGERY HX CHOLECYSTECTOMY 10/2016 COLONOSCOPY 06/11/2022 repeat prn COLONOSCOPY FLX DX W/COLLJ SPEC WHEN PFRMD 10/06/2013 Colonoscopy COLONOSCOPY FLX DX W/COLLJ SPEC WHEN PFRMD 11/22/2015 Colonoscopy CONIZATION OF CERVIX, LEEP CURETTAGE EGD 06/11/2022 EGD TRANSORAL BIOPSY SINGLE/MULTIPLE 02/08/2011 ESOPHAGOGASTRODUODENOSCOPY TRANSORAL DIAGNOSTIC 10/06/2013 EGD ESOPHAGOGASTRODUODENOSCOPY TRANSORAL DIAGNOSTIC 11/22/2015 EGD ESOPHAGOGASTRODUODENOSCOPY TRANSORAL DIAGNOSTIC 02/28/2016 EGD EYE SURGERY HX HERNIA REPAIR HX LIG/TRNSXJ FLP TUBE ABDL/VAG APPR UNI/BI Tubal ligation NEUROPLASTY &/TRANSPOS MEDIAN NRV CARPAL TUNNE 02/14/2012 Carpal tunnel decomp - right OOPHORECTOMY PARTIAL/TOTAL UNI/BI 07/17/2010 Oophorectomy - left Dr. Manuel Hoover - Dr. Alessio Dahl PAST SURGICAL HISTORY OF NECK SURGERY, anterior fusion PAST SURGICAL HISTORY OF Face lift PAST SURGICAL HISTORY OF back surgery PAST SURGICAL HISTORY OF bilat foot surgey, bunionectomy PAST SURGICAL HISTORY OF benign tumor removed from right breast PAST SURGICAL HISTORY OF 03/2011 B/L cataract surgery with implants- Dr Jacob Aguilar at [facility] PAST SURGICAL HISTORY OF 07/27/2015 cryo ablation, cardiac RPR UMBILICAL HRNA 5 YRS/> REDUCIBLE 07/17/2010 Hernia repair, umbilical >5yr [facility] Dr Manuel Hoover SHX COSMETIC SURGERY SKIN BIOPSY HX FAMILY HISTORY Problem Relation Age of Onset Hypertension Mother Stroke Mother Coronary Artery Disease Father other (wilsons disease) Brother other (UMA'S DISEASE) Brother Liver dse, cirrhosis Social History Tobacco Use Smoking status: Former Packs/day: 2.00 Years: 35.00 Pack years: 70.00 Types: Cigarettes Quit date: 11/09/2005 Years since quittin.9 Smokeless tobacco: Never Tobacco comments: Stopped smoking 12/2005 Vaping Use Vaping Use: Never used Substance Use Topics Alcohol use: Not Currently Drug use: No Past medical history, appointments, medications, allergies reviewed. Pertinent Lab/Diagnostic Studies are reviewed and discussed today Current Outpatient Medications: valsartan (DIOVAN) 40 mg tablet lidocaine (LIDODERM) 5 % metoprolol tartrate, short acting, (LOPRESSOR) 25 mg tablet flecainide (TAMBOCOR) 100 mg tablet furosemide (LASIX) 40 mg tablet sucralfate (CARAFATE) 100 mg/mL suspension apixaban (ELIQUIS) 5 mg tab(s) Bifidobacterium infantis (ALIGN) 10.5 mg (10 million cell) chew potassium chloride ER (K-DUR, KLOR-CON) 20 mEq tablet melatonin 3 mg ODT MULTIVITAMIN WITH MINERALS (ONE-A-DAY 50 PLUS ORAL) [id number] ORAL sucralfate (CARAFATE) 1 gram tablet CALCIUM CARBONATE/VITAMIN D3 (VITAMIN D-3 ORAL) Review of Systems CONSTITUTIONAL: No fevers, [...] numbness of concern. Physical Exam BP 130/70 Pulse (!) 54 Resp 16 Wt 61.7 kg (136 lb) SpO2 97% BMI 24.87 kg/m General appearance: Well appearing, alert, in no [...] or cyanosis. Good capillary refill. ASSESSMENT/PLAN: 1. Atrial fibrillation, unspecified type (HCC) - ICD9: 427.31, ICD10: I48.91 (primary diagnosis) Currently in sinus rhythm. Cont all meds till she sees the steward/stewardess second class 2. Generalized arthritis - ICD9: 716.90, ICD10: M19.90 - DICLOFENAC SODIUM 75 MG TABLET,DELAYED RELEASE 3. Primary hypertension - ICD9: 401.9, ICD10: I10 - Controlled - Recommend home blood pressure monitoring, to bring results to next visit - Encouraged sodium restriction, DASH or Mediterranean diet - Recommend regular aerobic exercise 4. Congestive heart failure, unspecified HF chronicity, unspecified heart failure type (HCC) - ICD9: 428.0, ICD10: I50.9 Stable - Continue current medications Brandon Manley MD documented in this encounter [facility] [place] 10-04-2022 Note [facility] 10-01-2022 Note [facility] 10-01-2022 History of Present illness Narrative NAME: ELIZABETH DELGADO [facility] NO: [id number] DATE OF SERVICE: 10/01/2022 Subjective: Elizabeth is here to follow up on peripheral arterial disease. Since our last visit, she did fall and has developed a left shankar wound. Objective: Her vital signs are stable. She is in no distress. She has a small superficial wound on her left pretibial region. Reviewed her PVRs, which are normal bilaterally. No drop with exercise. Assessment/Plan: 1. Bilateral lower extremity leg pain. 2. Nonhealing wound. Reviewed the findings with Elizabeth. She has no evidence of any arterial disease. She may benefit from evaluation at the [facility] for her chronic nonhealing wound. Recommend that she call and follow up with us as needed. She also may benefit from a venous reflux testing as needed. She will call and follow up sooner with any concerns. Zuleyma Meredith D.O. KB/[id number] Audio #: [id number] Date Dictated: 10/01/2022 09:14:01 Date Typed: 10/05/2022 05:09:37 Date Revised: documented in this encounter [facility] [place] 09-30-2022 Note [facility] 09-26-2022 Note [facility] 09-26-2022 Note [facility] 09-13-2022 Instructions Talia Haque MD - 09/13/2022 11:16 AM EDT We will schedule physical therapy in [place]. Regular exercise and institute fall precautions. May start atorvastatin 20 mg daily Continue Eliquis 5 mg twice a day for stroke prevention. Monitor blood pressure regularly. Goal blood pressure less than 140/90 Low-sodium and cholesterol diet. Goal LDL of less than 70. Monitor for any recurrent TIA or stroke symptoms. Monitor for any bleeding complications. Consider lumbosacral MRI if symptoms does not improve or get worse in 4 to 6 months. We will see you for follow-up visit as needed. documented in this encounter [facility] 09-13-2022 History of Present illness Narrative Neurology Outpatient Consult [facility] [address] [place], [place] [id number] (phone)/[phone] (fax) Patient: Elizabeth Delgado Date of : 1945 Primary Care Provider: Brandon Manley MD Assessment/Plan: Patient developed sudden onset of right facial droop with mild dysarthria that disappeared in 24 hours last July 2022 suggest transient ischemic attack. Her brain MRI showed no ischemic stroke. There is an incidental small aneurysm about 2 mm at the cavernous portion of the left ICA. She denies previous history of TIA or stroke. There is some mention of occasional forgetfulness but her cognitive evaluation appears unremarkable at this time. She also describes numbness and changes in her ambulation. She has history of scoliosis and previous sciatica status post surgery. There is no obvious motor weakness or foot drop during her exam but she has slight decrease in ankle jerks on the left side and decreased light touch and pinprick on the left L5 dermatomal distribution. Focal entrapment neuropathy of the left peroneal nerve at the fibular head is probably less likely. She probably will benefit from physical therapy. Monitor for any worsening symptoms. Consider lumbosacral MRI in 4 to 6 weeks if symptoms persist or worse and follow-up with orthopedic or neurosurgery. Her cerebrovascular risk factors include age, hypertension and atrial fibrillation. Labs/Imaging/Ancillary test: Vitamin B12 was normal. TSH was normal. Echo showed no clots or thrombus. Brain MRI August 09, 2022: No evidence of acute infarct. Therapy mild chronic involutional and white matter changes. MRA: No evidence for significant stenosis or occlusion in the vertebral or carotid arteries of the neck. 2 mm aneurysm left ICA cavernous portion. No evidence of large vessel occlusion. 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 Regular exercise and institute fall precautions. May start atorvastatin 20 mg daily Continue Eliquis 5 mg twice a day for stroke prevention. Monitor blood pressure regularly. Goal blood pressure less than 140/90 Low-sodium and cholesterol diet. Goal LDL of less than 70. Monitor for any recurrent TIA or stroke symptoms. Monitor for any bleeding complications. Consider lumbosacral MRI if symptoms does not improve or get worse in 4 to 6 months. We will see you for follow-up visit as needed. Diagnostic impression, plans, and suggestions were explained and discussed. Records from the referring physician were reviewed. Clinical imaging study/ labs/medical tests were ordered/reviewed. Indications, risk, complications, side effects and alternatives of medications/therapeutics were explained and discussed. Please monitor closely for any untoward side effects or complications of medications. Questions and concerns were addressed. Please call or contact us for any problems. This note was created in part using a speech-recognition software. Time Code: 48 minutes 1. Preparation for patient's visit (reviewing previous chart, current medical records, previous history, exam, tests, procedures, and medications) 2. Face to face encounter obtaining history from the patient/family/caregivers; performing evaluation and examination; discussing tests and procedure results, medications and therapeutic options, side effects and complications of medications and procedures. Ordering medications, tests, or procedures; referring and communicating with other physicians, healthcare professionals; counseling and education of the patient/family/caregiver; independently interpreting results (tests, labs, procedures, imaging) and communicating and explaining results to the patient/family/caregiver. 3. Coordination of care; preparing and printing discharge instruction and any educational material for the patient and caregivers. Documenting clinical information in the electronic and other health records. Reviewing OARRS as needed. Orders Placed This Encounter Ambulatory Ref to Darell/Pat (PT/OT/ST) Bifidobacterium infantis 10.5 mg (10 million cell) Chew apixaban (ELIQUIS) 5 mg Tab [id number] ORAL flecainide (TAMBOCOR) 100 MG tablet furosemide (LASIX) 40 MG tablet melatonin 3 mg ODT metoprolol succinate (TOPROL-XL) 25 MG 24 hr tablet sucralfate (CARAFATE) 100 mg/mL suspension valsartan (DIOVAN) 40 MG tablet estradioL (ESTRACE) 0.01 % (0.1 mg/gram) vaginal cream omeprazole (PRILOSEC) 40 MG capsule multivit/folic acid/vit K1 (ONE-A-DAY WOMEN'S 50 PLUS ORAL) mv-mn/iron/folic acid/herb 190 (VITAMIN D3 COMPLETE ORAL) atorvastatin (LIPITOR) 20 MG tablet Subjective (CC/HPI): Patient is a 77-year-old lady accompanied by her daughter for neurological evaluation. She was referred because of cerebrovascular disease She developed sudden onset of right facial droop with mild dysarthria in July 2022. She was admitted and evaluated in [facility]. Her brain MRI showed no acute stroke. Her symptoms improved after 24 hours. She has been taking Eliquis for several years because of her atrial fibrillation. She also has history of DVT. She denies previous history of TIA or stroke. During that time, she also has symptoms of numbness on the left leg and a change of her ambulation. She has history of scoliosis and has abnormal gait. She mention history of sciatica in the past and underwent back surgery. She also mention recent bowel prolapse and underwent repair. There was mention of occasional forgetfulness but she remains independent with activities of daily living. She denies any anxiety or depression. No hallucination or delusion. 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 No recent falls or injury. She does not use any assistive devices. Past medical history include: Hypertension, scoliosis, cervical spondylopathy status post surgery, sciatic pain status post surgery, bowel prolapse, GERD, irritable bowel syndrome, DVT, atrial fibrillation status post cardioversion and ablation. Social history: No alcohol, tobacco, or recreational drug use. Family history: Positive for cardiac disease but negative for stroke ROS: All systems reviewed and negative except pertinent positives and negatives documented in the HPI and below. Objective: BP (!) 180/53 (BP Location: Right arm, Patient Position: Sitting, BP Cuff Size: Adult) Pulse (!) 46 Resp 16 SpO2 96% Patient is awake and alert. Neck is supple. No carotid bruit. Heart rate and rhythm is regular. Pulses are 2+ symmetrically. Negative Tinel's sign. No Homans' sign or calf tenderness. Patient is oriented. MMSE: 29/30. Attention and comprehension were intact. Speech is fluent and is spontaneous. Language is intact. Follow simple commands. Pupils are 4 mm equally reactive to light. No ptosis, nystagmus, or visual field cuts. Face is symmetrical and facial sensation is intact. Hearing is grossly intact. Palate moved symmetrical upward. Positive shoulder shrug. Tongue is midline. Gross strength in the upper and lower extremity were 5/5. No foot drop. Normal muscle tone and bulk. No muscle fasciculations. Gross sensory is decreased to pinprick and light touch on the lateral left lower leg and dorsum of the foot. No tremors or abnormal movements. Finger to nose test was normal. Deep tendon reflexes are symmetrical with slight decrease left ankle jerk. No ankle clonus. Gait is limping. documented in this encounter [facility] 09-03-2022 Note [facility] 09-03-2022 History of Present illness Narrative Images from the original note were not included. [facility] V[facility] Thor[facility] [place] DEPARTMENT OF VASCULAR SURGERY OUTPATIENT VISIT DATE September 03, 2022 OUTPATIENT VISIT TYPE CONSULTATION SERVICE DATE: 09/03/2022 SERVICE TIME: 10:30 AM PRIMARY CARE PHYSICIAN: Brandon Manley MD REFERRING PROVIDER: Zuleyma Meredith [address] [place] [id number] Consult requested for an opinion regarding the evaluation and treatment of the above. My final impression and recommendations will be communicated back to the requesting physician by way of the shared medical record or letter via [place] mail. CHIEF COMPLAINT: Patient presents with: New Patient History of Present Illness: Patient is a 77 year old White female presenting for consultation, evaluation and possible treatment of bilateral lower extremity edema from mid shankar down with associated discoloration of her veins. She describes pain with ambulation especially at incline more so on the right versus the left. She recently had repair of bowel prolapse and she has noticed the pain more since the surgery. States if she stops and rests the pain will improve and she can continue to walk. She had to stop and rest over 5 times to walk from her car to the appointment. Denies rest pain PAIN ASSESSMENT: PAIN EVALUATION No data found in the last 1 encounters. Obstetric History T1 L1 SAB1 IAB0 Ectopic0 Multiple0 Live Births0 Name of Baby 1: Not recorded Date: Not recorded GA: Not recorded Delivery: Not recorded Apgar1: Not recorded Apgar5: Not recorded Living: Not recorded Name of Baby 2: Not recorded Date: Not recorded GA: Not recorded Delivery: Not recorded Apgar1: Not recorded Apgar5: Not recorded Living: Not recorded Duration of Symptoms: Progressive PAST MEDICAL HISTORY Diagnosis Date Anxiety Arthritis Atrial fibrillation (HCC) s/p ablation 07/2015 Backache, unspecified Cancer (HCC) Carpal tunnel syndrome, bilateral Congestive heart failure (HCC) DVT (deep venous thrombosis) (HCC) remote Esophageal reflux History of cardioversion 10/31/2018 History of DVT (deep vein thrombosis) 11/10/2015 HTN (hypertension) Irritable bowel syndrome Left carotid bruit 09/14/2018 noted by cardiology Left ventricular systolic dysfunction 11/08/2016 PONV (postoperative nausea and vomiting) S/P cervical spinal fusion Scoliosis PAST SURGICAL HISTORY Procedure Laterality Date ABDOMINAL SURGERY HX BREAST SURGERY HX CHOLECYSTECTOMY 10/2016 COLONOSCOPY 06/11/2022 repeat prn COLONOSCOPY FLX DX W/COLLJ SPEC WHEN PFRMD 10/06/2013 Colonoscopy COLONOSCOPY FLX DX W/COLLJ SPEC WHEN PFRMD 11/22/2015 Colonoscopy CONIZATION OF CERVIX, LEEP CURETTAGE EGD 06/11/2022 EGD TRANSORAL BIOPSY SINGLE/MULTIPLE 02/08/2011 ESOPHAGOGASTRODUODENOSCOPY TRANSORAL DIAGNOSTIC 10/06/2013 EGD ESOPHAGOGASTRODUODENOSCOPY TRANSORAL DIAGNOSTIC 11/22/2015 EGD ESOPHAGOGASTRODUODENOSCOPY TRANSORAL DIAGNOSTIC 02/28/2016 EGD EYE SURGERY HX HERNIA REPAIR HX LIG/TRNSXJ FLP TUBE ABDL/VAG APPR UNI/BI Tubal ligation NEUROPLASTY &/TRANSPOS MEDIAN NRV CARPAL TUNNE 02/14/2012 Carpal tunnel decomp - right OOPHORECTOMY PARTIAL/TOTAL UNI/BI 07/17/2010 Oophorectomy - left Dr. Manuel Hoover - Dr. Alessio Dahl PAST SURGICAL HISTORY OF NECK SURGERY, anterior fusion PAST SURGICAL HISTORY OF Face lift PAST SURGICAL HISTORY OF back surgery PAST SURGICAL HISTORY OF bilat foot surgey, bunionectomy PAST SURGICAL HISTORY OF benign tumor removed from right breast PAST SURGICAL HISTORY OF 03/2011 B/L cataract surgery with implants- Dr Jaocb Aguilar at [facility] PAST SURGICAL HISTORY OF 07/27/2015 cryo ablation, cardiac RPR UMBILICAL HRNA 5 YRS/> REDUCIBLE 07/17/2010 Hernia repair, umbilical >5yr [facility] Dr Manuel Hoover SHX COSMETIC SURGERY SKIN BIOPSY HX SOCIAL HISTORY: Social History Tobacco Use Smoking status: Former Packs/day: 2.00 Years: 35.00 Pack years: 70.00 Types: Cigarettes Quit date: 11/09/2005 Years since quittin.8 Smokeless tobacco: Never Tobacco comments: Stopped smoking 12/2005 Vaping Use Vaping Use: Never used Substance Use Topics Alcohol use: Not Currently Drug use: No FAMILY HISTORY Problem Relation Age of Onset Hypertension Mother Stroke Mother Coronary Artery Disease Father other (wilsons disease) Brother other (UMA'S DISEASE) Brother Liver dse, cirrhosis MEDICATIONS: metoprolol tartrate, short acting, (LOPRESSOR) 25 mg tablet Take 1 tablet by mouth twice daily. flecainide (TAMBOCOR) 100 mg tablet Take 1 tablet by mouth twice daily. Amoxicillin 500 mg tablet Take 1 tablet by mouth three times daily for 7 days. furosemide (LASIX) 40 mg tablet Take 1 tablet by mouth twice daily. sucralfate (CARAFATE) 100 mg/mL suspension Take 10 mL by mouth before meals and at bedtime. (560cc=2wks) apixaban (ELIQUIS) 5 mg tab(s) Take by mouth twice daily. Bifidobacterium infantis (ALIGN) 10.5 mg (10 million cell) chew Take 1 tablet by mouth once daily. potassium chloride ER (K-DUR, KLOR-CON) 20 mEq tablet Take 1 tablet by mouth twice daily. melatonin 3 mg ODT Take 1 tablet by mouth daily at bedtime. MULTIVITAMIN WITH MINERALS (ONE-A-DAY 50 PLUS ORAL) Take by mouth. [id number]-[id number] ORAL Take by mouth. sucralfate (CARAFATE) 1 gram tablet Take 1 tablet by mouth before meals and at bedtime. (Patient not taking: Reported on 09/03/2022) CALCIUM CARBONATE/VITAMIN D3 (VITAMIN D-3 ORAL) Take 1,000 mg by mouth five times daily. (Patient not taking: Reported on 09/03/2022) ALLERGIES: ALLERGIES Allergen Reactions Cardizem [Diltiazem* Swelling Codeine Vomiting Ringing in Ears. Entex [Phenylephrin* Rash Etodolac Other: See Comments Heart palpitations Meloxicam Other: See Comments Heart palpitations Naproxen Swelling Possible allergy? Pt relates to naproxen Surgical Tape Adhes* Rash Trazodone Other: See Comments rapid hear beat Zantac [Ranitidine * Rash, Swelling REVIEW of SYSTEMS: Constitutional: No weight loss, malaise or fevers. HEENT: Negative for frequent or significant headaches, No changes in hearing or vision, no nose bleeds or other nasal problems Respiratory: Negative for shortness of breath and Positive for productive cough and getting over sinus infection Cardiovascular: Negative for chest pain, leg swelling or palpitations Gatrointestinal: Negative for abdominal discomfort, blood in stools or black stools or change in bowel habits Genitourinary: No history of dysuria, frequency, or incontinence Musculoskeletal: Negative for back pain and muscle pain and Positive for joint swelling and joint pain Endocrine: Negative for cold or heat intolerance, polyuria, polydipsia and goiter Hematology/Lymphatic: Positive for bruises easily Neurologic: No history or headaches, syncope, paralysis, seizures or tremors Integumentary: Negative for lesions, rash, and itching. PHYSICAL EXAM: VITALS: There were no vitals taken for this visit. General: Alert, oriented, cooperative, healthy appearance Integumentary: Normal color, no rash, no lesions. HEENT: EOM, pupils equal, round and reactive. Cardiovascular: Pulse regular. Lungs: Normal breath sounds, no wheezes or crackles. Abdomen: Not examined Extremities: No deformity, no edema or tenderness, no joint swelling or clubbing. Neurological: AAOx3. Normal cognition and motor skills. Vascular: Posterior Tibial Right: Weak - Left: Weak Dorsalis Pedal Right: Weak - Left: Weak Diagnostic tests reviewed for today's visit: Most recent labs Most recent imaging IMPRESSION: Ms. Delgado is a 77 year old female with claudication . PLAN and RECOMMENDATIONS: Recommend walking and exercise Will get PVRs with exercise Follow up after testing SIGNATURE: Zuleyma Meredith DO PATIENT NAME: Elizabeth Delgado DATE: September 03, 2022 TIME: 10:30 AM documented in this encounter [facility] 08-29-2022 Note [facility] 08-29-2022 History of Present illness Narrative Reason for Visit Patient presents with: Recheck: 2 week CVA also 3 month follow up BP Elizabeth Delgado is a 77 year old female who presents here today for Above Complaints.. Health Maintenance SPIROMETRY ALPHA-1 ANTITRYPSIN DEFICIENCY SCREENING DTAP,TDAP,TD(1 - Tdap) COVID-19 VACCINE(4 - Booster for Moderna series) SHINGRIX VACCINE(3 of 3) ADVANCE DIRECTIVE DISCUSSION DEPRESSION ASSESSMENT HPI Elizabeth is a 75-year-old female with a past medical history of atrial fibrillation on anticoagulation with Eliquis, has diastolic dysfunction, hypertension, reflux disease with Moses's esophagus, on proton pump inhibitors history of urinary surgery for enterocele and cystocele status post surgery., Scoliosis and cervical degeneration with status post cervical fusion, past history of smoking and lawrence lobular emphysema, multiple joints with arthritis. 4 months ago in April 2022 she had pneumonia which required 2 courses of antibiotics. After the pneumonia she has not been feeling back to her normal she has fatigue does not feel herself and was working on a decrease scheduled. Since her pneumonia she also has had elevated liver numbers and ultrasound of the liver showed fatty liver but no acute concerns. She has been having GI symptoms of swallowing dysphagia for which she was seen earlier this year. Patient is here today to to follow-up after her ER visit. She had seen Gwendolyn aggarwal nurse practitioner in a week for follow up. 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 Neurology was consulted and was sort of dismissive about the facial droop or upper extremity weakness which improved over the course of time. In the hospital stay she was noted to be bradycardic despite being off her metoprolol and flecainide which were held because of her bradycardia. And at discharge she was not restarted but asked to follow-up with cardiology. Echo was done which showed stage III diastolic dysfunction She has been to the steward/stewardess second class for 2 days ago and is back on metoprolol 25 mg twice a day and flecainide 100 mg 2 times a day. She is going to follow-up for her carotid aneurysm with vascular. We did discuss about possible sick sinus syndrome and future need for pacemaker. 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 Another concern patient has today is for the past 10 days she has been having what she says to be sinus headaches and sinus drainage on the right side along with some pain in the right side of her face from lymph node enlargement. She says her drainage from the nose has been green and would like to take medication for bacterial infection No problem-specific Assessment & Plan notes found for this encounter. PAST MEDICAL HISTORY Diagnosis Date Anxiety Arthritis Atrial fibrillation (HCC) s/p ablation 07/2015 Backache, unspecified Cancer (HCC) Carpal tunnel syndrome, bilateral Congestive heart failure (HCC) DVT (deep venous thrombosis) (HCC) remote Esophageal reflux History of cardioversion 10/31/2018 History of DVT (deep vein thrombosis) 11/10/2015 HTN (hypertension) Irritable bowel syndrome Left carotid bruit 09/14/2018 noted by cardiology Left ventricular systolic dysfunction 11/08/2016 PONV (postoperative nausea and vomiting) S/P cervical spinal fusion Scoliosis PAST SURGICAL HISTORY Procedure Laterality Date ABDOMINAL SURGERY HX BREAST SURGERY HX CHOLECYSTECTOMY 10/2016 COLONOSCOPY 06/11/2022 repeat prn COLONOSCOPY FLX DX W/COLLJ SPEC WHEN PFRMD 10/06/2013 Colonoscopy COLONOSCOPY FLX DX W/COLLJ SPEC WHEN PFRMD 11/22/2015 Colonoscopy CONIZATION OF CERVIX, LEEP CURETTAGE EGD 06/11/2022 EGD TRANSORAL BIOPSY SINGLE/MULTIPLE 02/08/2011 ESOPHAGOGASTRODUODENOSCOPY TRANSORAL DIAGNOSTIC 10/06/2013 EGD ESOPHAGOGASTRODUODENOSCOPY TRANSORAL DIAGNOSTIC 11/22/2015 EGD ESOPHAGOGASTRODUODENOSCOPY TRANSORAL DIAGNOSTIC 02/28/2016 EGD EYE SURGERY HX HERNIA REPAIR HX LIG/TRNSXJ FLP TUBE ABDL/VAG APPR UNI/BI Tubal ligation NEUROPLASTY &/TRANSPOS MEDIAN NRV CARPAL TUNNE 02/14/2012 Carpal tunnel decomp - right OOPHORECTOMY PARTIAL/TOTAL UNI/BI 07/17/2010 Oophorectomy - left Dr. Manuel Hoover - Dr. Alessio Dahl PAST SURGICAL HISTORY OF NECK SURGERY, anterior fusion PAST SURGICAL HISTORY OF Face lift PAST SURGICAL HISTORY OF back surgery PAST SURGICAL HISTORY OF bilat foot surgey, bunionectomy PAST SURGICAL HISTORY OF benign tumor removed from right breast PAST SURGICAL HISTORY OF 03/2011 B/L cataract surgery with implants- Dr Jacob Aguilar at [facility] PAST SURGICAL HISTORY OF 07/27/2015 cryo ablation, cardiac RPR UMBILICAL HRNA 5 YRS/> REDUCIBLE 07/17/2010 Hernia repair, umbilical >5yr [facility] Dr Manuel Hoover SHX COSMETIC SURGERY SKIN BIOPSY HX FAMILY HISTORY Problem Relation Age of Onset Hypertension Mother Stroke Mother Coronary Artery Disease Father other (wilsons disease) Brother other (UMA'S DISEASE) Brother Liver dse, cirrhosis Social History Tobacco Use Smoking status: Former Packs/day: 2.00 Years: 35.00 Pack years: 70.00 Types: Cigarettes Quit date: 11/09/2005 Years since quittin.8 Smokeless tobacco: Never Tobacco comments: Stopped smoking 12/2005 Vaping Use Vaping Use: Never used Substance Use Topics Alcohol use: Not Currently Drug use: No Past medical history, appointments, medications, allergies reviewed. Pertinent Lab/Diagnostic Studies are reviewed and discussed today Current Outpatient Medications: sucralfate (CARAFATE) 100 mg/mL suspension sucralfate (CARAFATE) 1 gram tablet apixaban (ELIQUIS) 5 mg tab(s) Bifidobacterium infantis (ALIGN) 10.5 mg (10 million cell) chew furosemide (LASIX) 40 mg tablet potassium chloride ER (K-DUR, KLOR-CON) 20 mEq tablet melatonin 3 mg ODT MULTIVITAMIN WITH MINERALS (ONE-A-DAY 50 PLUS ORAL) CALCIUM CARBONATE/VITAMIN D3 (VITAMIN D-3 ORAL) [id number] ORAL Review of Systems CONSTITUTIONAL: No fevers, chills [...] or numbness of concern. Physical Exam BP 116/60 Pulse 60 Temp 36.4 C (97.6 F) Resp 16 Wt 60.8 kg (134 lb) SpO2 99% BMI 24.51 kg/m General appearance: Well appearing, alert, in no [...] or cyanosis. Good capillary refill. ASSESSMENT/PLAN: 1. Bradycardia - ICD9: 427.89, ICD10: R00.1 (primary diagnosis) We discussed she possibly has sick sinus syndrome because her heart rate goes from 30 4250 and 60. She needs to follow with cardiology they have brought up ablation 2. Acute non-recurren maxillary sinusitis - ICD9: 461.0, ICD10: J01.00 Antibiotics were given today 3. Congestive heart failure, unspecified HF chronicity, unspecified heart failure type (HCC) - ICD9: 428.0, ICD10: I50.9 She is on 40 mg of Lasix and to continue that by cardiology. 4. Atrial fibrillation, unspecified type (HCC) - ICD9: 427.31, ICD10: I48.91 Continue the Eliquis 5. Panlobular emphysema (HCC) - ICD9: 492.8, ICD10: J43.1 But she had recently significant lung issues. 6. 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 Olga Lidia Lima RN Reviewed triage protocol guidelines with patient. Patient is requesting appointment with PCP. Advised patient Disposition: ED now. Patient refuses ER evaluation. She says I know I'm not having a stroke because I'm on Eliquis and I started having a numb foot 6 months ago. Attempted to explain to patient that there are other types of strokes but she refuses to go to ER and says I'll call another doctor instead . Olga Lidia Lima RN Reason for Disposition [1] Weakness (i.e., paralysis, loss of muscle strength) of the face, arm / hand, or leg / foot on one side of the body AND [2] sudden onset AND [3] present now (Exception: Patino's palsy suspected [i.e., weakness only on one side of the face, developing over hours to days, no other symptoms]) Answer Assessment - Initial Assessment Questions 1. SYMPTOM: numbness on left side of body 2. ONSET: says it started few days ago 3. LAST NORMAL: few days ago 4. PATTERN: present now 5. CARDIAC SYMPTOMS: Denies chest pain, SOB palpitations History of Afib and CHF 6. NEUROLOGIC SYMPTOMS: dizziness and unsteady on feet 7. OTHER SYMPTOMS: nausea 8. : NO Protocols used: Neurologic [id number] documented in this encounter [facility] 07-25-2022 Miscellaneous Notes Pt already scheduled. Nadia Bourne Please set her up with Dr Meredith I do think there is a back component too with it but yes we can see what the vascular part of it is Regards, Brandon Manley MD This is for problems wanting. Patient walks and then is unable to walk. like the blood flow stopped . Felicitas Prince LPN Please confirm the diagnosis she needs this for. Regards, Brandon Manley MD patient is needing a referral to Dr. Eddie Segal for her insurance. Felicitas Prince LPN documented in this encounter [facility] 07-21-2022 Note [facility] 07-21-2022 History of Present illness Narrative FOLLOW UP VISIT - ENDOSCOPY NAME: Elizabeth Steen [facility] NO.: [id number] DATE OF SERVICE: July 18, 2022 : 1945 REFERRING PHYSICIAN: Brandon Manley MD Elizabeth is a patient I am following for personal history of colon polyps, dysphagia, and a questionable history of Moses's esophagitis. The patient is a 77 year old female referred for endoscopy. Elizabeth notes a history of a hiatal hernia and reflux. The patient had been doing well with the reflux but now notes that she occasionally feels like she has a lump or discomfort in her epigastrium without true pain and occasionally notes that food sticks. The patient had a swallow study performed at [facility] which she noted was demonstrating food sticking in her upper esophagus. This performed on May 07, 2022. Report from the study demonstrated: Mild oropharyngeal phase dysphagia with decreased bolus control with some spilling into the piriform area observed with thin liquids by straw mild residue of cookie. Mild decreased airway closure during the swallow. Mild decreased pharyngeal stripping with mild residual in the vallecula and piriform area was following swallow. The patient was felt to have laryngeal penetration of thin and nectar liquids without aspiration truly noted. She carries a diagnosis of prior Moses's esophagitis. The patient notes no current colon complaints. Elizabeth has undergone prior endoscopy. She underwent upper and lower endoscopy on November 22, [address] Klaus Vázquez. He noted on upper endoscopy Impression: - Savary-Delgado Grade I reflux esophagitis. Biopsied. - Normal stomach. Biopsied. - Normal examined duodenum. Lower endoscopy: Impression: - Four 5 mm polyps at 20 cm proximal to the anus and at 30 cm proximal to the anus. Resected and retrieved. - Diverticulosis in the sigmoid colon and in the descending colon. - External and internal hemorrhoids. Pathology demonstrated: Microbiology Laboratory Manager Specimen originated from [facility] Specimen #: [id number] Submitting Physician: KLAUS CORDOBA MD FINAL DIAGNOSIS 1. Gastric antrum, biopsy (A) - Reactive gastropathy and focal intestinal metaplasia, negative for dysplasia. - See comment. 2. Esophagus at 38 cm, biopsy (B) - Chronically inflamed gastric cardia/oxyntic mucosa with reactive epithelial changes, negative for intestinal metaplasia and dysplasia. - Hyperplastic squamous epithelium with rare eosinophils suggestive of gastroesophageal reflux. 3. Polyp, colon at 30 cm, biopsy (C) - Fragments of colonic mucosa with focal hyperplastic change. - Adenomatous epithelium is not identified. 4. Polyps, colon at 20 cm, biopsies (D) - Fragments of hyperplastic polyp. NATE/geovani 11/24/2015 COMMENT 1. Results of an immunohistochemical stain for H. pylori will be reported in an addendum. Follow-up upper endoscopy on February 28, 2016. Pathology from this endoscopy demonstrated: FINAL DIAGNOSIS Gastric antrum, biopsy - Reactive gastropathy. - No histomorphologic evidence of Helicobacter pylori organisms. The patient is being seen by me today at the request of Dr. Brandon Manley MD for my opinion and advice regarding epigastric/reflux symptoms and desire for follow-up colonoscopy given when the patient was told she should undergo follow-up endoscopy. Here the patient also notes that she had had a previous likely simple umbilical hernia repair performed in conjunction with gynecology for a laparoscopic oophorectomy on July 17, 2010. She now notes a bulge in the right upper quadrant away from any previous incisions I performed her and lower endoscopy on June 11, 2022. The patient was found to have: Upper Endoscopy Impression: - Normal examined jejunum. - Duodenitis. - Gastritis. Biopsied. - Gastritis. - Mildly severe reflux esophagitis with no bleeding. Biopsied. - Normal middle third of esophagus. Biopsied. Lower endoscopy Impression: - The entire examined colon is normal on direct and retroflexion views. - No specimens collected. . Pathology demonstrated: FINAL DIAGNOSIS A. Stomach, antrum, biopsy: - Gastric mucosa with reactive gastropathy - type changes and focal intestinal metaplasia. - Negative for dysplasia. - Helicobacter pylori organisms are not identified. B. Esophagus, distal, biopsy: - Squamous esophageal mucosa with mild basal zone hyperplasia and rare intraepithelial eosinophils (up to 1 eosinophil per high power field), consistent with reflux disease. C. Esophagus, mid, biopsy: - Squamous esophageal mucosa with no significant diagnostic alterations. Ct scan from May 28, 2022 demonstrated a supraumbilical fascial defect. The patient notes continued complaints since the procedure. She has listed medications of Pepcid, Prilosec, and Carafate. She states she went to get the Carafate prescription but her pharmacy was out of that medication. She notes that in the past she has tried Prilosec by itself Pepcid by itself. She still notes epigastric pain and nausea on either medications. At times she notes that she is taking Prilosec and added Pepcid when she was having breakthrough symptoms. She takes multiple NSAIDs a day for orthopedic/back pain issues. She notes that often eating makes her discomfort better. She returns after planned trial of pepcid for 2 weeks and prilosec for 2 weeks. She noted worse heartburn with prilosec but still regurgitation symptoms. She followed up with her steward/stewardess second class on July 05, 2022. TRhey felt she was low risk for surgical intervention and that her eilquis could be held for 3 days She has a history of A-fib. She is on Eliquis. She notes that she has had tenderness at her palpable hernia site for approximate the past 10 years. She wishes to get her hernia repaired VITALS: Blood pressure 118/78, pulse (!) 121, temperature 36.2 C (97.1 F), SpO2 95 %. On examination, the abdomen is benign. She has a small supraumbilical hernia.. Assessment IMPRESSION: Early satiety, nausea, epigastric issues. Failure to improve on PPIs or H2 blockers completely, supraumbilical incisional hernia PLAN: If the patient notes any problems or changes in bowel function, the patient should contact me immediately. Otherwise I recommend follow up endoscopy as needed. She will continue on pepcid per her wishes. I will add carafate to she if this improves her overall symptoms. Patient will require laparoscopic repair for supraumbilical incisional hernia. She is on Eliquis and has history of cardiac issues. She wishes to wait for surgery until the fall Diagnoses: (K43.2) Incisional hernia, without obstruction or gangrene (primary encounter diagnosis) (R13.10) Dysphagia, unspecified type (K44.9, K21.9) Hiatal hernia with GERD without esophagitis (Z86.010) Personal history of colonic polyps Return to Clinic: The patient is instructed to follow-up with me in 1 month prior to planned hernia repair. Katheryn Stokes MD documented in this encounter [facility] 07-04-2022 Miscellaneous Notes Forms were filled Spoke with patient and states her start date date of 04/29 and end date of 06/24.This was continuous leave Please get the exact date we need to write for starting and ending and also if this is the one time continuous leave that she is requesting Regards, Brandon Manley MD Type of form: FMLA Form received via fax When form is completed, Fax form to [facility] Form has been forwarded to Physician Desk: Dr. Dr. Sindhu Saha LPN documented in this encounter [facility] 06-20-2022 Note [facility] 06-18-2022 Note [facility] 06-18-2022 Nurse Note faxing letter to [facility] HR at [phone] documented in this encounter [facility] 06-18-2022 History of Present illness Narrative Reason for Visit Patient presents with: Follow Up: review results, needs a letter for work needs to be specific and elevated blood pressure Elizabeth Delgado is a 77 year old female who presents here today for Above Complaints. Health Maintenance SPIROMETRY BP CONTROLLED (<130/80) ALPHA-1 ANTITRYPSIN DEFICIENCY SCREENING DTAP,TDAP,TD(1 - Tdap) MAMMOGRAM COVID-19 VACCINE(4 - Booster for Moderna series) SHINGRIX VACCINE(3 of 3) ADVANCE DIRECTIVE DISCUSSION DEPRESSION ASSESSMENT HPI Since she last seen me she had a egd and colonoscopy has reflux esophagitis, no other abnormalities were noted. She is doing better with the pepcid than the prilosec. The prilosec made her throw up in her mouth. Feels more reassured . She has a upcoming apt with the surgeon who did the egd and we asked that she discuss her periumbilical pain at that time. She would like to have a letter that states she would like to work only for 5 hours every day , 5 days a week As she would like to be productive but just not like she was before. No problem-specific Assessment & Plan notes found for this encounter. PAST MEDICAL HISTORY Diagnosis Date Anxiety Arthritis Atrial fibrillation (HCC) s/p ablation 07/2015 Backache, unspecified Cancer (HCC) Carpal tunnel syndrome, bilateral Congestive heart failure (HCC) DVT (deep venous thrombosis) (HCC) remote Esophageal reflux History of cardioversion 10/31/2018 History of DVT (deep vein thrombosis) 11/10/2015 HTN (hypertension) Irritable bowel syndrome Left carotid bruit 09/14/2018 noted by cardiology Left ventricular systolic dysfunction 11/08/2016 PONV (postoperative nausea and vomiting) S/P cervical spinal fusion Scoliosis PAST SURGICAL HISTORY Procedure Laterality Date ABDOMINAL SURGERY HX BREAST SURGERY HX CHOLECYSTECTOMY 10/2016 COLONOSCOPY FLX DX W/COLLJ SPEC WHEN PFRMD 10/06/2013 Colonoscopy COLONOSCOPY FLX DX W/COLLJ SPEC WHEN PFRMD 11/22/2015 Colonoscopy CONIZATION OF CERVIX, LEEP CURETTAGE EGD TRANSORAL BIOPSY SINGLE/MULTIPLE 02/08/2011 ESOPHAGOGASTRODUODENOSCOPY TRANSORAL DIAGNOSTIC 10/06/2013 EGD ESOPHAGOGASTRODUODENOSCOPY TRANSORAL DIAGNOSTIC 11/22/2015 EGD ESOPHAGOGASTRODUODENOSCOPY TRANSORAL DIAGNOSTIC 02/28/2016 EGD EYE SURGERY HX HERNIA REPAIR HX LIG/TRNSXJ FLP TUBE ABDL/VAG APPR UNI/BI Tubal ligation NEUROPLASTY &/TRANSPOS MEDIAN NRV CARPAL TUNNE 02/14/2012 Carpal tunnel decomp - right OOPHORECTOMY PARTIAL/TOTAL UNI/BI 07/17/2010 Oophorectomy - left Dr. Manuel Hoover - Dr. Alessio Dahl PAST SURGICAL HISTORY OF NECK SURGERY, anterior fusion PAST SURGICAL HISTORY OF Face lift PAST SURGICAL HISTORY OF back surgery PAST SURGICAL HISTORY OF bilat foot surgey, bunionectomy PAST SURGICAL HISTORY OF benign tumor removed from right breast PAST SURGICAL HISTORY OF 03/2011 B/L cataract surgery with implants- Dr Jacob Aguilar at [facility] PAST SURGICAL HISTORY OF 07/27/2015 cryo ablation, cardiac RPR UMBILICAL HRNA 5 YRS/> REDUCIBLE 07/17/2010 Hernia repair, umbilical >5yr [facility] Dr Manuel Hoover SHX COSMETIC SURGERY SKIN BIOPSY HX FAMILY HISTORY Problem Relation Age of Onset Hypertension Mother Stroke Mother Coronary Artery Disease Father other (wilsons disease) Brother other (UMA'S DISEASE) Brother Liver dse, cirrhosis Social History Tobacco Use Smoking status: Former Packs/day: 2.00 Years: 35.00 Pack years: 70.00 Types: Cigarettes Quit date: 11/09/2005 Years since quittin.6 Smokeless tobacco: Never Tobacco comments: Stopped smoking 12/2005 Vaping Use Vaping Use: Never used Substance Use Topics Alcohol use: Not Currently Drug use: No Past medical history, appointments, medications, allergies reviewed. Pertinent Lab/Diagnostic Studies are reviewed and discussed today Current Outpatient Medications: omeprazole (PRILOSEC) 40 mg capsule metoprolol succinate ER (TOPROL XL) 50 mg 24 hr tablet sucralfate (CARAFATE) 1 gram tablet estradiol (ESTRACE) 0.01 % (0.1 mg/gram) vaginal cream apixaban (ELIQUIS) 5 mg tab(s) Bifidobacterium infantis (ALIGN) 10.5 mg (10 million cell) chew furosemide (LASIX) 40 mg tablet potassium chloride ER (K-DUR, KLOR-CON) 20 mEq tablet melatonin 3 mg ODT flecainide (TAMBOCOR) 100 mg tablet MULTIVITAMIN WITH MINERALS (ONE-A-DAY 50 PLUS ORAL) CALCIUM CARBONATE/VITAMIN D3 (VITAMIN D-3 ORAL) [id number] ORAL Review of Systems CONSTITUTIONAL: No fevers, chills [...] or numbness of concern. Physical Exam BP 132/60 (BP Site: Left Arm, BP Position: Sitting, BP Cuff Size: Regular Adult) Pulse (!) 53 Temp 36.4 C (97.5 F) Resp 12 Ht 157.5 cm (5' 2 ) Wt 61.7 kg (136 lb) SpO2 95% BMI 24.87 kg/m General appearance: Well appearing, alert, in no [...] or cyanosis. Good capillary refill. ASSESSMENT/PLAN: 1. Congestive heart failure, unspecified HF chronicity, unspecified heart failure type (HCC) - ICD9: 428.0, ICD10: I50.9 (primary diagnosis) Stable - Continue current medications 2. Atrial fibrillation, unspecified type (HCC) - ICD9: 427.31, ICD10: I48.91 Stable on the current medication that the patient is taking. 3. Primary hypertension - ICD9: 401.9, ICD10: I10 Went over the side effect profile for the drug with the patient, mentioned every one of it , discussed appropriate concerns , alternatives and benefits of the drug, - good control - Recommended regular aerobic exercise. - Recommend home blood pressure monitoring, to bring results in on next visit - Goal of BP <130/80 Brandon Manley MD documented in this encounter [facility] 06-17-2022 Miscellaneous Notes Patient notified. ----- Message from Brandon Manley MD sent at 06/16/2022 8:29 PM EST ----- Elizabeth, I would like you to cut out the vit d supplements totally for 3 montsh as the vit d is very high. The pancrease enzymes were normal so was vit d Regards, Brandon Manley MD documented in this encounter [facility] 06-08-2022 Note [facility] 06-08-2022 History of Present illness Narrative Dear Dr. Donnelly, The patient unfortunately has been having right upper quadrant pain which is going on for a few years intermittently but now its almost constant for the past few days. This is the same pain she felt when she had cholecystitis and ended up with a cholecystectomy. We are very confused about the imaging reports. Her imaging studies done at the [facility] radiology CT scan abdomen shows that there is a questionable calcified gallbladder with some abnormalities noted. Looking at her ultrasound from [facility] they stated do not have a gallbladder. She does have the pain and its very suggestive of the gallbladder pain she had an this calcified thing that we see would like you to have a look at the images and let us know what you think if possible. I know she is going to have procedure with you and his imaging hence I am Reaching out. Regards, Brandon Manley MD documented in this encounter [facility] 06-08-2022 Note [facility] 06-08-2022 History of Present illness Narrative Reason for Visit Patient presents with: 2 week follow-up Elizabeth Delgado is a 77 year old female who presents here today for Above Complaints.. Health Maintenance SPIROMETRY BP CONTROLLED (<130/80) ALPHA-1 ANTITRYPSIN DEFICIENCY SCREENING COLORECTAL CANCER SCREENING DTAP,TDAP,TD(1 - Tdap) MAMMOGRAM COVID-19 VACCINE(4 - Booster for Moderna series) SHINGRIX VACCINE(3 of 3) ADVANCE DIRECTIVE DISCUSSION DEPRESSION ASSESSMENT HPI Elizabeth has not been feeling well since February 2022 when she had 2 rounds of antibiotics for a pneumonia. She has been at home for most of the past 3 months as she has not been feeling up to par Current symptoms are bowel changes, fatigue, nausea, and abdominal pain with bloating and feeling like it is hard. She is also having the right shoulder pain that she had in the past. It is between the shoulder and the neck, the same spot that she had pain when she had the cholecystectomy. Interestingly she had a ct that showed calcified gall bladder and the US showed no gall bladder. Would like her to talk to Dr Stokes to see what he opines on this. She is going to have an EGD and colonoscopy as discussed for her abdominal complaints She also notes today that her legs go weak all of a sudden, and she feels like she is going to fall and she cannot pick her leg up. She refuses to use a cane. Also she wants to go back to work but wants a 5 hours restriction. She is getting injections In the back and shoulders. She is tired and can sleep all day. Cbc a couple weeks ago was 12, tsh was normal. She is having some chills she notes Will check urine. No problem-specific Assessment & Plan notes found for this encounter. PAST MEDICAL HISTORY Diagnosis Date Anxiety Atrial fibrillation (HCC) s/p ablation 07/2015 Backache, unspecified Carpal tunnel syndrome, bilateral DVT (deep venous thrombosis) (HCC) remote Esophageal reflux History of cardioversion 10/31/2018 History of DVT (deep vein thrombosis) 11/10/2015 HTN (hypertension) Irritable bowel syndrome Left carotid bruit 09/14/2018 noted by cardiology Left ventricular systolic dysfunction 11/08/2016 PONV (postoperative nausea and vomiting) S/P cervical spinal fusion Scoliosis PAST SURGICAL HISTORY Procedure Laterality Date CHOLECYSTECTOMY 10/2016 COLONOSCOPY FLX DX W/COLLJ SPEC WHEN PFRMD 10/06/13 Colonoscopy COLONOSCOPY FLX DX W/COLLJ SPEC WHEN PFRMD 11/22/2015 Colonoscopy CONIZATION OF CERVIX, LEEP CURETTAGE EGD TRANSORAL BIOPSY SINGLE/MULTIPLE 02/08/11 ESOPHAGOGASTRODUODENOSCOPY TRANSORAL DIAGNOSTIC 10/06/13 EGD ESOPHAGOGASTRODUODENOSCOPY TRANSORAL DIAGNOSTIC 11/22/2015 EGD ESOPHAGOGASTRODUODENOSCOPY TRANSORAL DIAGNOSTIC 02/28/2016 EGD LIG/TRNSXJ FLP TUBE ABDL/VAG APPR UNI/BI Tubal ligation NEUROPLASTY &/TRANSPOS MEDIAN NRV CARPAL TUNNE 02/14/12 Carpal tunnel decomp - right OOPHORECTOMY PARTIAL/TOTAL UNI/BI 07/17/2010 Oophorectomy - left Dr. Manuel Hoover - Dr. Alessio Dahl PAST SURGICAL HISTORY OF NECK SURGERY, anterior fusion PAST SURGICAL HISTORY OF Face lift PAST SURGICAL HISTORY OF back surgery PAST SURGICAL HISTORY OF bilat foot surgey, bunionectomy PAST SURGICAL HISTORY OF benign tumor removed from right breast PAST SURGICAL HISTORY OF 03/2011 B/L cataract surgery with implants- Dr Jacob Aguilar at [facility] PAST SURGICAL HISTORY OF 07/27/15 cryo ablation, cardiac RPR UMBILICAL HRNA 5 YRS/> REDUCIBLE 07/17/2010 Hernia repair, umbilical >5yr [facility] Dr Manuel Hoover FAMILY HISTORY Problem Relation Age of Onset Hypertension Mother Stroke Mother Coronary Artery Disease Father other (wilsons disease) Brother other (UMA'S DISEASE) Brother Liver dse, cirrhosis Social History Tobacco Use Smoking status: Former Packs/day: 2.00 Years: 35.00 Pack years: 70.00 Types: Cigarettes Quit date: 11/09/2005 Years since quittin.5 Smokeless tobacco: Never Tobacco comments: Stopped smoking 12/2005 Vaping Use Vaping Use: Never used Substance Use Topics Alcohol use: Not Currently Drug use: No Past medical history, appointments, medications, allergies reviewed. Pertinent Lab/Diagnostic Studies are reviewed and discussed today Current Outpatient Medications: omeprazole (PRILOSEC) 40 mg capsule metoprolol succinate ER (TOPROL XL) 50 mg 24 hr tablet sucralfate (CARAFATE) 1 gram tablet apixaban (ELIQUIS) 5 mg tab(s) Bifidobacterium infantis (ALIGN) 10.5 mg (10 million cell) chew furosemide (LASIX) 40 mg tablet potassium chloride ER (K-DUR, KLOR-CON) 20 mEq tablet melatonin 3 mg ODT flecainide (TAMBOCOR) 100 mg tablet MULTIVITAMIN WITH MINERALS (ONE-A-DAY 50 PLUS ORAL) CALCIUM CARBONATE/VITAMIN D3 (VITAMIN D-3 ORAL) [id number] ORAL estradiol (ESTRACE) 0.01 % (0.1 mg/gram) vaginal cream Review of Systems CONSTITUTIONAL: No fevers, chills [...] or numbness of concern. Physical Exam BP 158/68 (BP Site: Right Arm, BP Position: Sitting, BP Cuff Size: Regular Adult) Pulse (!) 56 Temp 36.6 C (97.8 F) (Temporal) Wt 61.2 kg (135 lb) SpO2 96% BMI 24.69 kg/m General appearance: Well appearing, alert, in no acute distress, well nourished. Skin: Skin color, texture, turgor normal, no suspicious rashes or lesions Head: Normocephalic, no masses, lesions, tenderness or abnormalities Eyes: Anicteric sclera. Pupils are equally round and reactive to light. Extraocular movements are intact. Lungs: Lungs clear to auscultation. No wheezing, rhonchi, rales Heart: RRR without murmur, gallop, or rubs. Extremities: 1+edema Abdomen: She also had some tenderness in the right upper quadrant. And middle of stomach BS were hypoactive. ASSESSMENT/PLAN: 1. Abdominal pain, unspecified abdominal location - ICD9: 789.00, ICD10: R10.9 (primary diagnosis) Will write to Dr Ty rodriguez to review her imaging studies that are conflicting - AMYLASE BLD - LIPASE BLD 2. Other fatigue - ICD9: 780.79, ICD10: R53.83 Patient does have some fatigue 3. Fever, unspecified fever cause - ICD9: 780.60, ICD10: R50.9 The patient has chills, he thinks it is related to steroid use s It is unclear what exactly is going on with her and especially with the conflicting reports about her imaging studies I am very concerned and I will be writing to Dr. Donnelly about her some labs and urine test to be done today. 4. Chills - ICD9: 780.64, ICD10: R68.83 - URINALYSIS, WITH MICROSCOPIC - URINE CULTURE - URINALYSIS, WITH MICROSCOPIC 5. Vitamin B12 deficiency - ICD9: 266.2, ICD10: E53.8 - VITAMIN B12 BLOOD 6. Vitamin D deficiency - ICD9: 268.9, ICD10: E55.9 - VITAMIN D 25 HYDROXY Brandon Manley MD documented in this encounter [facility] 05-28-2022 History of Present illness Narrative Radiology Service Progress Note PATIENT NAME: Elizabeth Delgado DATE OF SERVICE: May 28, 2022 TIME: 11:57 AM PATIENT IDENTITY VERIFICATION COMPLETED USING TWO (2) IDENTIFIERS: Name and Date of confirmed by patient verbally. FALL SCREENING: Has the patient had 2 falls in the last year or 1 fall with injury or currently using an Ambulatory Assistive Device (Walker, Cane, Wheelchair, Crutches, etc.)? No PATIENT GENDER DATA: Female. status: : No status: NO. PATIENT RELEVANT IMPLANT DATA REVIEWED: Not Applicable RADIOLOGY DEPARTMENT: CT; Exam(s) Completed: Abdomen/Pelvis PERIPHERAL IV DATA: Not applicable SIGNED BY: RT Sasha(R) May 28, 2022 11:57 AM documented in this encounter [facility] 05-27-2022 Miscellaneous Notes 06/11/2022 colon asc Patient accepted sooner date Sonia Diane Pulmonary Physician Patient on waitlist for sooner opening with Dr. Stokes 07/02/2022 COLON/EGD ASC documented in this encounter [facility] 05-23-2022 History of Present illness Narrative HISTORY AND PHYSICAL lEizabeth Delgado 1945 REFERRING PHYSICIAN: Gwendolyn Ballard APRN.CMM PROGRAMMER CHIEF COMPLAINT: Consult (Hiatal hernia) HPI: The patient is a 77 year old female referred for endoscopy. Elizabeth notes a history of a hiatal hernia and reflux. The patient had been doing well with the reflux but now notes that she occasionally feels like she has a lump or discomfort in her epigastrium without true pain and occasionally notes that food sticks. The patient had a swallow study performed at [facility] which she noted was demonstrating food corticoid sticking in her upper esophagus. This performed on May 07, 2022. Report from the study demonstrated: Mild oropharyngeal phase dysphagia with decreased bolus control with some spilling into the piriform area observed with thin liquids by straw mild residue of cookie. Mild decreased airway closure during the swallow. Mild decreased pharyngeal stripping with mild residual in the vallecula and piriform area was following swallow. The patient was felt to have laryngeal penetration of thin and nectar liquids without aspiration truly noted. She carries a diagnosis of prior Moses's esophagitis. The patient notes no current colon complaints. Elizabeth has undergone prior endoscopy. She underwent upper and lower endoscopy on November 22, [address] Klaus Vázquez. He noted on upper endoscopy Impression: - Savary-Delgado Grade I reflux esophagitis. Biopsied. - Normal stomach. Biopsied. - Normal examined duodenum. Lower endoscopy: Impression: - Four 5 mm polyps at 20 cm proximal to the anus and at 30 cm proximal to the anus. Resected and retrieved. - Diverticulosis in the sigmoid colon and in the descending colon. - External and internal hemorrhoids. Pathology demonstrated: Microbiology Laboratory Manager Specimen originated from [facility] Specimen #: [id number] Submitting Physician: KLAUS CORDOBA MD FINAL DIAGNOSIS 1. Gastric antrum, biopsy (A) - Reactive gastropathy and focal intestinal metaplasia, negative for dysplasia. - See comment. 2. Esophagus at 38 cm, biopsy (B) - Chronically inflamed gastric cardia/oxyntic mucosa with reactive epithelial changes, negative for intestinal metaplasia and dysplasia. - Hyperplastic squamous epithelium with rare eosinophils suggestive of gastroesophageal reflux. 3. Polyp, colon at 30 cm, biopsy (C) - Fragments of colonic mucosa with focal hyperplastic change. - Adenomatous epithelium is not identified. 4. Polyps, colon at 20 cm, biopsies (D) - Fragments of hyperplastic polyp. NATE/geovani 11/24/2015 COMMENT 1. Results of an immunohistochemical stain for H. pylori will be reported in an addendum. Follow-up upper endoscopy on February 28, 2016. Pathology from this endoscopy demonstrated: FINAL DIAGNOSIS Gastric antrum, biopsy - Reactive gastropathy. - No histomorphologic evidence of Helicobacter pylori organisms. The patient is being seen by me today at the request of Dr. Brandon Manley MD for my opinion and advice regarding epigastric/reflux symptoms and desire for follow-up colonoscopy given when the patient was told she should undergo follow-up endoscopy. Here the patient also notes that she had had a previous umbilical hernia repair performed laparoscopically with mesh and now notes a bulge in the right upper quadrant away from any previous incisions PAST MEDICAL HISTORY Diagnosis Date Anxiety Atrial fibrillation (HCC) s/p ablation 07/2015 Backache, unspecified Carpal tunnel syndrome, bilateral DVT (deep venous thrombosis) (HCC) remote Esophageal reflux History of cardioversion 10/31/2018 History of DVT (deep vein thrombosis) 11/10/2015 HTN (hypertension) Irritable bowel syndrome Left carotid bruit 09/14/2018 noted by cardiology Left ventricular systolic dysfunction 11/08/2016 PONV (postoperative nausea and vomiting) S/P cervical spinal fusion Scoliosis PAST SURGICAL HISTORY Procedure Laterality Date CHOLECYSTECTOMY 10/2016 COLONOSCOPY FLX DX W/COLLJ SPEC WHEN PFRMD 10/06/13 Colonoscopy COLONOSCOPY FLX DX W/COLLJ SPEC WHEN PFRMD 11/22/2015 Colonoscopy CONIZATION OF CERVIX, LEEP CURETTAGE EGD TRANSORAL BIOPSY SINGLE/MULTIPLE 02/08/11 ESOPHAGOGASTRODUODENOSCOPY TRANSORAL DIAGNOSTIC 10/06/13 EGD ESOPHAGOGASTRODUODENOSCOPY TRANSORAL DIAGNOSTIC 11/22/2015 EGD ESOPHAGOGASTRODUODENOSCOPY TRANSORAL DIAGNOSTIC 02/28/2016 EGD LIG/TRNSXJ FLP TUBE ABDL/VAG APPR UNI/BI Tubal ligation NEUROPLASTY &/TRANSPOS MEDIAN NRV CARPAL TUNNE 02/14/12 Carpal tunnel decomp - right OOPHORECTOMY PARTIAL/TOTAL UNI/BI 07/17/2010 Oophorectomy - left Dr. Manuel Hoover - Dr. Alessio Dahl PAST SURGICAL HISTORY OF NECK SURGERY, anterior fusion PAST SURGICAL HISTORY OF Face lift PAST SURGICAL HISTORY OF back surgery PAST SURGICAL HISTORY OF bilat foot surgey, bunionectomy PAST SURGICAL HISTORY OF benign tumor removed from right breast PAST SURGICAL HISTORY OF 03/2011 B/L cataract surgery with implants- Dr Jacob gAuilar at [facility] PAST SURGICAL HISTORY OF 07/27/15 cryo ablation, cardiac RPR UMBILICAL HRNA 5 YRS/> REDUCIBLE 07/17/2010 Hernia repair, umbilical >5yr [facility] Dr Manuel Hoover Current Outpatient Medications Medication Sig omeprazole (PRILOSEC) 40 mg capsule Take 1 capsule by mouth once daily. metoprolol succinate ER (TOPROL XL) 50 mg 24 hr tablet Take 0.5 tablets by mouth once daily. sucralfate (CARAFATE) 1 gram tablet Take 1 tablet by mouth before meals and at bedtime. estradiol (ESTRACE) 0.01 % (0.1 mg/gram) vaginal cream Insert 1 gram inside the vagina nightly for 2 weeks, then insert 1 gram inside the vagina twice weekly apixaban (ELIQUIS) 5 mg tab(s) Take by mouth twice daily. Bifidobacterium infantis (ALIGN) 10.5 mg (10 million cell) chew Take 1 tablet by mouth once daily. furosemide (LASIX) 40 mg tablet Take 1 tablet by mouth once daily. potassium chloride ER (K-DUR, KLOR-CON) 20 mEq tablet Take 1 tablet by mouth twice daily. melatonin 3 mg ODT Take 1 tablet by mouth daily at bedtime. flecainide (TAMBOCOR) 100 mg tablet Take 100 mg by mouth twice daily. MULTIVITAMIN WITH MINERALS (ONE-A-DAY 50 PLUS ORAL) Take by mouth. CALCIUM CARBONATE/VITAMIN D3 (VITAMIN D-3 ORAL) Take 1,000 mg by mouth five times daily. GVEWWEI-CXTLEEVXU-LUPZ ORAL Take by mouth. peg 3350-Electrolytes (GOLYTELY) 236-22.74-6.74 -5.86 gram suspension Take 4,000 mL by mouth one time only for 1 dose. Refer to printed prep instructions from your provider. enteric contrast (will be provided with radiology test) Take 1 Each by mouth one time only for [address] ABD/PEL WO Routine order Administer, As Directed One Time Only, via Oral, Rectal, both Oral and Rectal, Enteric Tube, Stoma or Indwelling Catheter, Enteric Contrast as designated per enteric contrast guidelines No current facility-administered medications for this visit. ALLERGIES: Cardizem [Diltiazem Hcl], Codeine, Entex [Phenylephrine-Guaifenesin], Etodolac, Meloxicam, Naproxen, Surgical Tape Adhesives [Other], Trazodone, and Zantac [Ranitidine Hcl] PERSONAL HISTORY: Social History Tobacco Use Smoking status: Former Packs/day: 2.00 Years: 35.00 Pack years: 70.00 Types: Cigarettes Quit date: 11/09/2005 Years since quittin.5 Smokeless tobacco: Never Tobacco comments: Stopped smoking 12/2005 Vaping Use Vaping Use: Never used Substance Use Topics Alcohol use: Not Currently Drug use: No FAMILY HISTORY: FAMILY HISTORY Problem Relation Age of Onset Hypertension Mother Stroke Mother Coronary Artery Disease Father other (wilsons disease) Brother other (UMA'S DISEASE) Brother Liver dse, cirrhosis REVIEW OF SYMPTOMS: The review of systems data was entered by the nurse and reviewed by hi Nursing Notes: Julieta Avendano RN 05/23/2022 2:10 PM Signed REVIEW OF SYSTEMS: General: The patient NOTES fatigue, denies weight loss, denies weight gain, denies feeling hot, and denies feelings of cold. Eyes: The patient denies glaucoma, denies eye injury/surgery, does not wear glasses or contacts. Ear/Nose/Throat: The patient denies allergies, denies hayfever, denies ear infections, and denies bloody noses. Cardiovascular: The patient denies chest pain, NOTES heart disease, denies high blood pressure,denies cardiac stent, denies prior heart attack, NOTES irregular heart beat, denies high cholesterol, denies poor circulation, NOTES heart failure, other cardiac issues, denies claudication, denies cold feet, denies peripheral arterial stent. Respiratory: The patient denies tuberculosis, NOTES pneumonia, denies frequent cough, denies pulmonary embolism, NOTES shortness of breath, and denies coughing up blood. Gastrointestinal: The patient denies difficulty swallowing, NOTES acid reflux, denies ulcers, denies vomiting, denies jaundice/hepatitis, denies gallbladder problems, denies black or tarry stools, denies hemorrhoids, denies bleeding from rectum, denies diverticulitis, denies constipation, denies diarrhea, denies loss of stool control, and denies hernias. Kidney/Bladder: The patient NOTES kidney stones, denies urine infections, and denies bloody urine. Skin: The patient NOTES a history of skin cancer, denies bleeding/changing moles, and NOTES a history of skin rash. Neurologic: The patient denies a history of epilepsy/convulsions, NOTES headaches, denies head/spinal injuries, and denies stroke/TIA. Psychiatric: The patient denies psychiatric medications, denies depression, and denies voices, denies substance abuse. Endocrine: The patient denies thyroid disorders, denies diabetes, and denies hormonal problems. Hematologic: The patient NOTES a history of bruising, denies bleeding, and denies anemia, denies blood clots. Infections: The patient NOTES a history of measles and mumps, denies rheumatic fever, and denies sexually transmitted diseases. Musculoskeletal: The patient denies back pain/injury, NOTES back problems, denies sciatica, denies knee/foot trouble, NOTES arthritis, or denies gout. When was patient's last Mammogram screening? 2019 Last Colonoscopy: 2017 Julieta Avendano RN PHYSICAL EXAMINATION: General: The patient is 77 year old female, well nourished, well hydrated in no acute distress. The patient is oriented to time, place, and person. VITALS: Blood pressure 124/72, pulse 62, temperature 36.6 C (97.9 F), height 157.5 cm (5' 2 ), weight 61.5 kg (135 lb 9.6 oz), SpO2 95 %. Body mass index is 24.8 kg/m . HEENT: Normal cephalic, ataumatic, pupils are equally round, sclera are anicteric, mucous membranes are moist, oropharynx is clear. Neck has no masses, asymmetry or lymphadenopathy. Thyroid is unremarkable. Respiratory: Clear to auscultation and percussion. Normal respiratory excursion and pattern. Cardiac: Examination is regular rate and rhythm. Abdominal exam: Soft, nontender, with no palpable masses. No hepatosplenomegaly. A likely palpable hernia in the right upper quadrant approximately 6 cm from the area of the umbilicus Rectal exam: exam deferred Extremities: no clubbing, cyanosis or edema. No adenopathy. Other: LABORATORY VALUES: As Noted RADIOLOGIC STUDIES: As Noted Assessment IMPRESSION: Reflux, oropharyngeal dysphagia on swallow study, epigastric symptoms versus reflux/dysphagia, history of colon polyps non-adenomatous patient with history of Moses's esophagitis, likely incisional hernia PLAN: I plan to perform upper and lower endoscopy. We discussed the risks and benefits of the planned endoscopy. I have informed the patient that complications can occur including failure to complete the endoscopy and perforation. The patient had the opportunity to ask questions concerning the planned endoscopy. My staff has also explained the procedure to the patient in understandable terms and has given the patient printed material concerning the procedure. The patient freely consents to surgery. I plan to use golytely bowel preparation for endoscopy I plan to obtain a CT scan of the abdomen with oral and without IV contrast to assess for recurrent incisional hernia Diagnoses: (Z86.010) Personal history of colonic polyps (primary encounter diagnosis) (K44.9, K21.9) Hiatal hernia with GERD without esophagitis (R13.10) Dysphagia, unspecified type (K43.2) Incisional hernia, without obstruction or gangrene My findings have been communicated to Dr. Brandon Manley MD via shared medical record. This note will be forwarded to Dr. Brandon Manley MD. Return to Clinic: The patient is instructed to follow-up with me after the testing has been completed. Katheryn Stokes MD documented in this encounter [facility] 05-23-2022 Instructions Katheryn Stokes MD - 05/23/2022 2:59 PM EST Images from the original note were not included. Bowel Preparation Instructions for: Golytely, Nulytely, Trilyte or Colyte (polyethylene glycol 3350 and electrolytes) IF YOU DO NOT FOLLOW THESE DIRECTIONS, YOUR COLONOSCOPY WILL BE CANCELLED. Ortez Instructions: Your bowel must be empty so that your doctor can clearly view your colon. Follow all of the instructions in this handout EXACTLY as they are written. Do NOT eat any solid food the ENTIRE day before your colonoscopy. Drink only clear liquids. Buy your bowel preparation at least 5 days before your colonoscopy. TRANSPORTATION on the Day of Your Exam A responsible person MUST be present with you at Check In prior to your colonoscopy and REMAIN in the endoscopy area until you are discharged. You are NOT ALLOWED to drive, take a taxi or bus, or leave the Endoscopy Center ALONE. If you do not have a responsible tanker truck driver (family member or friend) with you to take you home, your exam cannot be done with sedation and will be cancelled. Please bring a list of all of your current medications, including any Over-the Counter medications with you. Medications If you take insulin, diabetic medications or blood thinners such as Coumadin (warfarin), Plavix (clopidogrel), Ticlid (ticlopidine hydrochloride), Agrylin (anagrelide), Xarelto (Rivaroxaban), Pradaxa (Dabigatran), Eliquis (Apixaban), and Effient (Prasugrel). You MUST call the doctors who orders those medicines for instructions on altering the dosage before your colonoscopy. All other medications should be taken the day of the exam with a sip of water including ASPIRIN. Five (5) Days Before Your Colonoscopy Do NOT take medicines that stop diarrhea - such as Imodium, Kaopectate, or Pepto Bismol. Do NOT take fiber supplements - such as Metamucil, Citrucel, or Perdiem. Do NOT take products that contain iron - such as multi-vitamins (the label lists what is in the products). Do NOT take Vitamin E. Buy the prescription bowel preparation solution at your local pharmacy or drugstore pharmacy. 04/2019 Bowel Preparation Instructions for: Golytely, Nulytely, Trilyte or Colyte (polyethylene glycol 3350 and electrolytes) Three (3) Days Before Your Colonoscopy Do NOT eat high-fiber foods - such as popcorn, beans, seeds (flax, sunflower, quinoa), multigrain bread, nuts, salad/vegetables, or fresh and dried fruit. One (1) Day Before Your Colonoscopy Only drink clear liquids the ENTIRE DAY before your colonoscopy. Do NOT eat any solid foods. Drink at least 8 ounces of clear liquids every hour after waking up. The clear liquids you can drink include: Clear Liquid (NO RED LIQUIDS) DO NOT DRINK Gatorade, Pedialyte or Powerade Clear broth or bouillon Coffee or tea (no milk or non-dairy creamer) Carbonated and non-carbonated soft drinks Jeff-Aid or other fruit flavored drinks Strained fruit juices (no pulp) Jell-O, popsicles, hard candy Water Alcohol Milk or non-dairy creamers Noodles or vegetables in soup Juice with pulp Liquid you cannot see through Do not use tobacco/vaping products The bowel preparation solution will be consumed in two parts. Mix the solution the evening before your colonoscopy and refrigerate before drinking. You may add the flavor pack that came with the bowel preparation. Do NOT add ice, sugar or any other flavorings to the solution. Part 1 At 6:00 PM - 2 DAYS before your colonoscopy Drink an 8-oz glass of bowel preparation every 10 minutes for a total of 8 glasses - Half the jug Part 2 At 6:00 PM - Evening before your colonoscopy Drink an 8-oz glass of bowel preparation every 10 minutes for a total of 8 glasses. - second half of the jug You may continue to drink clear liquids until midnight. 2 04/2019 documented in this encounter [facility] 05-23-2022 Nurse Note REVIEW OF SYSTEMS: General: The patient NOTES fatigue, denies weight loss, denies weight gain, denies feeling hot, and denies feelings of cold. Eyes: The patient denies glaucoma, denies eye injury/surgery, does not wear glasses or contacts. Ear/Nose/Throat: The patient denies allergies, denies hayfever, denies ear infections, and denies bloody noses. Cardiovascular: The patient denies chest pain, NOTES heart disease, denies high blood pressure,denies cardiac stent, denies prior heart attack, NOTES irregular heart beat, denies high cholesterol, denies poor circulation, NOTES heart failure, other cardiac issues, denies claudication, denies cold feet, denies peripheral arterial stent. Respiratory: The patient denies tuberculosis, NOTES pneumonia, denies frequent cough, denies pulmonary embolism, NOTES shortness of breath, and denies coughing up blood. Gastrointestinal: The patient denies difficulty swallowing, NOTES acid reflux, denies ulcers, denies vomiting, denies jaundice/hepatitis, denies gallbladder problems, denies black or tarry stools, denies hemorrhoids, denies bleeding from rectum, denies diverticulitis, denies constipation, denies diarrhea, denies loss of stool control, and denies hernias. Kidney/Bladder: The patient NOTES kidney stones, denies urine infections, and denies bloody urine. Skin: The patient NOTES a history of skin cancer, denies bleeding/changing moles, and NOTES a history of skin rash. Neurologic: The patient denies a history of epilepsy/convulsions, NOTES headaches, denies head/spinal injuries, and denies stroke/TIA. Psychiatric: The patient denies psychiatric medications, denies depression, and denies voices, denies substance abuse. Endocrine: The patient denies thyroid disorders, denies diabetes, and denies hormonal problems. Hematologic: The patient NOTES a history of bruising, denies bleeding, and denies anemia, denies blood clots. Infections: The patient NOTES a history of measles and mumps, denies rheumatic fever, and denies sexually transmitted diseases. Musculoskeletal: The patient denies back pain/injury, NOTES back problems, denies sciatica, denies knee/foot trouble, NOTES arthritis, or denies gout. When was patient's last Mammogram screening? 2019 Last Colonoscopy: 2017 Julieta Avendano RN documented in this encounter [facility] 05-23-2022 Miscellaneous Notes Patient notified at appointment. ----- Message from Brandon Manley MD sent at 05/23/2022 8:06 AM EST ----- Urine culture does not have any growth Regards, Brandon Manley MD documented in this encounter [facility] 05-22-2022 Instructions Gwendolyn Ballard APRN.CMM PROGRAMMER - 05/22/2022 1:39 PM EST Restart omeprazole documented in this encounter [facility] 05-22-2022 History of Present illness Narrative CC: Patient presents with: Recheck: Follow up, review labs HPI Elizabeth Delgado is a 77 year old female who presents today for follow up. Has been seen by numerous providers for various issues and had multiple diagnostics over the last few months. Had pneumonia end of February that required 2 rounds of antibiotics. Was admitted with CHF exacerbation, A-fib with RVR. Has had a multitude of complaints since end february. Has had a normal stress test ordered by cardiology for her reports of shortness of breath, chest pain, and fatigue. Current symptoms are bowel changes, fatigue, nausea, and abdominal pain with bloating and feeling like it is hard. Other symptoms have resolved. Still reporting getting a low grade fever at night. States it ranges from 99-100. Blood cultures negative, CXR showing pneumonia resolved, urine negative for infection, lab work normal, and no skin changes. Reports light colored stool but has been taking a new supplement that is supposed to help with her liver. At one point had elevated liver enzymes but last checked were normal. US of liver showed fatty liver without any other concerns. Requested to see Dr. Stokes for her hiatal hernia diagnosed years ago as she originally felt was cause of symptoms and is scheduled tomorrow. No recent Abdominal diagnostics performed outside of US. Has had these symptoms since early April and was supposed to start carafate a month ago as ordered by PCP, but has not picked it up yet. Was supposed to also be taking omeprazole twice a day and stopped this as well. Denies any abnormal thought process, further dizziness, chest pain, shortness of breath, chills REVIEW OF SYSTEMS General: no night sweats, no recurrent infections, no change in appetite, and no significant changes in weight Respiratory: no cough, no wheezing, no shortness of breath, no hemoptysis Cardiovascular: no chest pain, no chest pressure, no palpitations, and no swelling GI: See HPI : No history of dysuria, frequency or incontinence Skin: Negative for lesions, rash, and itching Endocrine: no cold intolerance, no heat intolerance, no polyuria, no polyphagia, and no polydipsia Neurologic: No headache, weakness, numbness, tingling, syncope. PAST MEDICAL HISTORY Diagnosis Date Anxiety Atrial fibrillation (HCC) s/p ablation 07/2015 Backache, unspecified Carpal tunnel syndrome, bilateral DVT (deep venous thrombosis) (HCC) remote Esophageal reflux History of cardioversion 10/31/2018 History of DVT (deep vein thrombosis) 11/10/2015 HTN (hypertension) Irritable bowel syndrome Left carotid bruit 09/14/2018 noted by cardiology Left ventricular systolic dysfunction 11/08/2016 PONV (postoperative nausea and vomiting) S/P cervical spinal fusion Scoliosis PAST SURGICAL HISTORY Procedure Laterality Date CHOLECYSTECTOMY 10/2016 COLONOSCOPY FLX DX W/COLLJ SPEC WHEN PFRMD 10/06/13 Colonoscopy COLONOSCOPY FLX DX W/COLLJ SPEC WHEN PFRMD 11/22/2015 Colonoscopy CONIZATION OF CERVIX, LEEP CURETTAGE EGD TRANSORAL BIOPSY SINGLE/MULTIPLE 02/08/11 ESOPHAGOGASTRODUODENOSCOPY TRANSORAL DIAGNOSTIC 10/06/13 EGD ESOPHAGOGASTRODUODENOSCOPY TRANSORAL DIAGNOSTIC 11/22/2015 EGD ESOPHAGOGASTRODUODENOSCOPY TRANSORAL DIAGNOSTIC 02/28/2016 EGD LIG/TRNSXJ FLP TUBE ABDL/VAG APPR UNI/BI Tubal ligation NEUROPLASTY &/TRANSPOS MEDIAN NRV CARPAL TUNNE 02/14/12 Carpal tunnel decomp - right OOPHORECTOMY PARTIAL/TOTAL UNI/BI 07/17/2010 Oophorectomy - left Dr. Manuel Hoover - Dr. Alessio Dahl PAST SURGICAL HISTORY OF NECK SURGERY, anterior fusion PAST SURGICAL HISTORY OF Face lift PAST SURGICAL HISTORY OF back surgery PAST SURGICAL HISTORY OF bilat foot surgey, bunionectomy PAST SURGICAL HISTORY OF benign tumor removed from right breast PAST SURGICAL HISTORY OF 03/2011 B/L cataract surgery with implants- Dr Jacob Aguilar at [facility] PAST SURGICAL HISTORY OF 07/27/15 cryo ablation, cardiac RPR UMBILICAL HRNA 5 YRS/> REDUCIBLE 07/17/2010 Hernia repair, umbilical >5yr [facility] Dr Manuel oHover ALLERGIES Cardizem [Diltiazem Hcl], Codeine, Entex [Phenylephrine-Guaifenesin], Etodolac, Meloxicam, Naproxen, Surgical Tape Adhesives [Other], Trazodone, and Zantac [Ranitidine Hcl] MEDICATIONS sucralfate (CARAFATE) 1 gram tablet Take 1 tablet by mouth before meals and at bedtime. omeprazole (PRILOSEC) 40 mg capsule Take 1 capsule by mouth twice daily. estradiol (ESTRACE) 0.01 % (0.1 mg/gram) vaginal cream Insert 1 gram inside the vagina nightly for 2 weeks, then insert 1 gram inside the vagina twice weekly (Patient not taking: Reported on 04/29/2022) apixaban (ELIQUIS) 5 mg tab(s) Take by mouth twice daily. Bifidobacterium infantis (ALIGN) 10.5 mg (10 million cell) chew Take 1 tablet by mouth once daily. furosemide (LASIX) 40 mg tablet Take 1 tablet by mouth once daily. metoprolol succinate ER (TOPROL XL) 50 mg 24 hr tablet Take 0.5 tablets by mouth once daily. (Patient taking differently: Take 25 mg by mouth twice daily.) potassium chloride ER (K-DUR, KLOR-CON) 20 mEq tablet Take 1 tablet by mouth twice daily. melatonin 3 mg ODT Take 1 tablet by mouth daily at bedtime. flecainide (TAMBOCOR) 100 mg tablet Take 100 mg by mouth twice daily. MULTIVITAMIN WITH MINERALS (ONE-A-DAY 50 PLUS ORAL) Take by mouth. CALCIUM CARBONATE/VITAMIN D3 (VITAMIN D-3 ORAL) Take 1,000 mg by mouth five times daily. [id number] ORAL Take by mouth. FAMILY HISTORY Problem Relation Age of Onset Hypertension Mother Stroke Mother Coronary Artery Disease Father other (UMA'S DISEASE) Brother Liver dse, cirrhosis Social History Tobacco Use Smoking status: Former Packs/day: 2.00 Years: 35.00 Pack years: 70.00 Types: Cigarettes Quit date: 11/09/2005 Years since quittin.5 Smokeless tobacco: Never Tobacco comments: Stopped smoking 12/2005 Vaping Use Vaping Use: Never used Substance Use Topics Alcohol use: Not Currently Drug use: No PHYSICAL EXAM BP 168/80 Pulse (!) 56 Temp 36.6 C (97.8 F) (Temporal) Resp 16 Wt 60.8 kg (134 lb) SpO2 99% BMI 25.32 kg/m General Appearance: well appearing, in no acute distress, alert Skin: Skin color, texture, turgor normal for age; Eyes: conjunctiva pink and moist, no icterus, sclera white, non-injected Neck: Thyroid normal size and symmetric without palpable nodules, No adenopathy Lymph nodes: No cervical lymphadenopathy and No supraclavicular lymphadenopathy Lungs: Lungs clear to auscultation. No wheezing, rhonchi, rales. Heart: RRR without murmur, gallop, or rubs. No ectopy Abdomen: Abdomen soft, Bowel sounds normal. No masses, organomegaly. Reports of tenderness to epigastric region with grimacing. No guarding, rigidity, or rebound pain noted. Extremities: No deformities, edema, skin discoloration, clubbing or cyanosis. Good capillary refill. Health maintenance reviewed with patient: SPIROMETRY Never done BP CONTROLLED (<130/80) Never done ALPHA-1 ANTITRYPSIN DEFICIENCY SCREENING Never done COLORECTAL CANCER SCREENING due on 11/21/2017 DTAP,TDAP,TD(1 - Tdap) due on 07/09/2018 MAMMOGRAM due on 01/15/2020 COVID-19 VACCINE(4 - Booster for Moderna series) due on 05/18/2021 SHINGRIX VACCINE(3 of 3) due on 11/14/2021 ADVANCE DIRECTIVE DISCUSSION Never done DEPRESSION ASSESSMENT due on 05/12/2022 ANNUAL PCP TEAM CHRONIC DISEASE VISIT due on 05/15/2023 LIPID SCREEN due on 01/18/2025 DIABETES SCREEN due on 05/15/2025 BONE DENSITY Completed INFLUENZA Completed HEPATITIS C SCREENING Completed PNEUMOCOCCAL: 65+ Completed DATA REVIEWED: Most recent labs and imaging results. ASSESSMENT/PLAN: 1. Epigastric pain - ICD9: 789.06, ICD10: R10.13 (primary diagnosis) - last visit patient consulted to GI but patient requesting to see Dr. Stokes. Patient also noncompliant with medications and epigastric tenderness along with bloating and nausea possibly caused by not taking her reflux medication. Asked patient to restart omeprazole as previously ordered and keep appointment with Dr. Stokes tomorrow. 2. Hiatal hernia with GERD without esophagitis - ICD9: 553.3, 530.11, ICD10: K44.9, K21.9 As above 3. Bowel habit changes - ICD9: 787.99, ICD10: R19.4 - workup this far normal. Will have her see general surgery and have her follow up with PCP in 2 weeks. Patient to stop over the counter liver supplement to see if color of stool returns to normal. 4. Other fatigue - ICD9: 780.79, ICD10: R53.83 - possible result of numerous recent illnesses, workup thus far is unconcerning but with reports of low grade fever patient needs to see infectious disease 5. Nausea - ICD9: 787.02, ICD10: R11.0 See #1 7. Fever, unspecified fever cause - ICD9: 780.60, ICD10: R50.9 - unknown cause of reported fever at night. Workup including blood cultures, urine, and chest xray all negative. - CONSULT TO INFECTIOUS DISEASES Prescription instructions reviewed with patient as applicable. Potential red flag symptoms discussed with the patient. Reviewed appropriate action plan to take if red flag symptoms occur. Patient agreeable to treatment plan. Gwendolyn Ballard APRN.CNP documented in this encounter [facility] 05-21-2022 Miscellaneous Notes Agree with keeping follow up tomorrow and seeing Dr. Stokes this week. If symptoms worsening prior to the appointment then needs to be seen/evaluated in ER. Pt states the pain isn't ay worse and she isn't going to go to the ER she was there 4 hours last time. She states she has an appointment with Dr Rider in July. Put Pt through to scheduling to set up appointment with Dr Stokes. Pt is just going to keep appointment with provider tomorrow. Patient has had all of these complaints previously, is her abdomen as it has been or worse. If she has a very hard abdomen with pain she needs urgently evaluated. Thank you Gwendolyn Ballard APRN.CNP Patient notified and stated that she just took temp and it is 99.9 tympanic and in the evening it is 100. Patient is still having nausea, patient is still forgetful and stated that her mouth cant kept up with her brain, SOB and leg are weak. Patient stated her food is light in color but has been eating bananas, tuna sandwich. PATIENT stated that food does not taste right. Patient is off work til Friday the . Patient abdomen is distended and hard please advise. Felicitas Prince LPN Please let patient know blood cultures are negative. How is she feeling today? Better or worse? Any new symptoms? Thank you Gwendolyn Ballard APRN.CNP documented in this encounter [facility] 05-17-2022 Miscellaneous Notes Patient states symptoms are not worse that they were, notified of new lab cultures and appointment scheduled. Are these symptoms worse than when saw 2 days ago? Legs were only slightly swollen at that visit. Has she called cardiology? Has she stopped drinking the pedialyte? Thank you Gwendolyn Ballard APRN.CNP Patient still c/o fever 99.5 high for patient and goes up to 100.7. Patient c/o fatigue and brain fog and nausea and gaining weight and lower legs swollen in the mornings and night is worse and having vertigo. Patient slept 9 hours yesterday. Patient wants to go back to work. patient has been more forgetful, patient has been repeating things on the phone to this nurse. Patient is asking since her liver enzymes are improved can she go to see , to get colonoscopy sooner. Patient stated that since surgery on 01/04/22 has not felt right. Had surgery up in [place]. Patient is really wanting to go back to work. 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 Please review and advise documented in this encounter [facility] 05-15-2022 Instructions Gwendolyn Ballard APRN.ANITHA - 05/15/2022 11:57 AM EST Call cardiology for follow up. documented in this encounter [facility] 05-15-2022 History of Present illness Narrative CC: Patient presents with: Recheck: Follow up, review results HPI Elizabeth Delgado is a 76 year old female who presents today for mutiple concerns. Has had difficulty with SOB, dizziness, fatigue, decreased appetite,and low heart rate since having pneumonia and uncontrolled A-fib. All of this causing her to miss work because of symptoms, diagnostic testing, and medical visits. Last visit was with different internal Medicine [employer] after ER visit. Patient with history of hiatal hernia, abdominal distension, uncontrolled reflux, nausea, difficulty swallowing, and decreased appetite. Patient felt shortness of breath was related to this. Was scheduled to see GI but unable to get in until July. Since then liver enzymes were elevated, RUQ US showing fatty liver but no acute concerns, and swallow study showing mild dysphagia with recommendations of no straws, small bites, and soft meats. CHF, A-fib, Bradycardia: Recent multiple med changes by cardiology. Patient has not been able to see cardiology but is continuing with decreased dose of metoprolol as ordered by ER. Symptoms were increased in shortness of breath, HR in the 30s-40s, and severe fatigue. Since decreasing the metoprolol has felt somewhat better. HR at home is 50s-60s. Shortness of breath was slightly improved but felt like it was starting again last night. Has seen improvement again this morning. Fatigue has not improved and still having to sit down after small tasks like trying to make her bed because she gets so tired. Intermittent edema and CHF: BNP was decreasing in ER a few weeks ago but patient still with some BLE edema. Admits to taking pedialyte for the past few months as she thought this would be bertter than water. Denies chest pain or palpitations. Last chest xray was 04/27 showing mild opacities but CT showing emphysema. Patient still with elevated temperature at night with a highest of 100.7 2 days ago and ranges from 99.5- 100s. Denies any wheezing, difficulty or pain with urination, abdominal pain, diarrhea, or vomiting. Does report foul smelling urine. REVIEW OF SYSTEMS See HPI PAST MEDICAL HISTORY Diagnosis Date Anxiety Atrial fibrillation (HCC) s/p ablation 07/2015 Backache, unspecified Carpal tunnel syndrome, bilateral DVT (deep venous thrombosis) (HCC) remote Esophageal reflux History of cardioversion 10/31/2018 History of DVT (deep vein thrombosis) 11/10/2015 HTN (hypertension) Irritable bowel syndrome Left carotid bruit 09/14/2018 noted by cardiology Left ventricular systolic dysfunction 11/08/2016 PONV (postoperative nausea and vomiting) S/P cervical spinal fusion Scoliosis PAST SURGICAL HISTORY Procedure Laterality Date CHOLECYSTECTOMY 10/2016 COLONOSCOPY FLX DX W/COLLJ SPEC WHEN PFRMD 10/06/13 Colonoscopy COLONOSCOPY FLX DX W/COLLJ SPEC WHEN PFRMD 11/22/2015 Colonoscopy CONIZATION OF CERVIX, LEEP CURETTAGE EGD TRANSORAL BIOPSY SINGLE/MULTIPLE 02/08/11 ESOPHAGOGASTRODUODENOSCOPY TRANSORAL DIAGNOSTIC 10/06/13 EGD ESOPHAGOGASTRODUODENOSCOPY TRANSORAL DIAGNOSTIC 11/22/2015 EGD ESOPHAGOGASTRODUODENOSCOPY TRANSORAL DIAGNOSTIC 02/28/2016 EGD LIG/TRNSXJ FLP TUBE ABDL/VAG APPR UNI/BI Tubal ligation NEUROPLASTY &/TRANSPOS MEDIAN NRV CARPAL TUNNE 02/14/12 Carpal tunnel decomp - right OOPHORECTOMY PARTIAL/TOTAL UNI/BI 07/17/2010 Oophorectomy - left Dr. Manuel Hoover - Dr. Alessio Dahl PAST SURGICAL HISTORY OF NECK SURGERY, anterior fusion PAST SURGICAL HISTORY OF Face lift PAST SURGICAL HISTORY OF back surgery PAST SURGICAL HISTORY OF bilat foot surgey, bunionectomy PAST SURGICAL HISTORY OF benign tumor removed from right breast PAST SURGICAL HISTORY OF 03/2011 B/L cataract surgery with implants- Dr Jacob Aguilar at [facility] PAST SURGICAL HISTORY OF 07/27/15 cryo ablation, cardiac RPR UMBILICAL HRNA 5 YRS/> REDUCIBLE 07/17/2010 Hernia repair, umbilical >5yr [facility] Dr Manuel Hoover ALLERGIES Cardizem [Diltiazem Hcl], Codeine, Entex [Phenylephrine-Guaifenesin], Etodolac, Meloxicam, Naproxen, Surgical Tape Adhesives [Other], Trazodone, and Zantac [Ranitidine Hcl] MEDICATIONS sucralfate (CARAFATE) 1 gram tablet Take 1 tablet by mouth before meals and at bedtime. omeprazole (PRILOSEC) 40 mg capsule Take 1 capsule by mouth twice daily. estradiol (ESTRACE) 0.01 % (0.1 mg/gram) vaginal cream Insert 1 gram inside the vagina nightly for 2 weeks, then insert 1 gram inside the vagina twice weekly (Patient not taking: Reported on 04/29/2022) oxyCODONE IR (ROXICODONE) 5 mg immediate release tablet Take 1 tablet by mouth every 6 hours as needed for pain. cyclobenzaprine (FLEXERIL) 10 mg tablet Take 1 tablet by mouth three times daily as needed for muscle spasm. apixaban (ELIQUIS) 5 mg tab(s) Take by mouth twice daily. Bifidobacterium infantis (ALIGN) 10.5 mg (10 million cell) chew Take 1 tablet by mouth once daily. furosemide (LASIX) 40 mg tablet Take 1 tablet by mouth once daily. metoprolol succinate ER (TOPROL XL) 50 mg 24 hr tablet Take 0.5 tablets by mouth once daily. (Patient taking differently: Take 25 mg by mouth twice daily.) potassium chloride ER (K-DUR, KLOR-CON) 20 mEq tablet Take 1 tablet by mouth twice daily. melatonin 3 mg ODT Take 1 tablet by mouth daily at bedtime. flecainide (TAMBOCOR) 100 mg tablet Take 100 mg by mouth twice daily. MULTIVITAMIN WITH MINERALS (ONE-A-DAY 50 PLUS ORAL) Take by mouth. CALCIUM CARBONATE/VITAMIN D3 (VITAMIN D-3 ORAL) Take 1,000 mg by mouth five times daily. [id number] ORAL Take by mouth. FAMILY HISTORY Problem Relation Age of Onset Hypertension Mother Stroke Mother Coronary Artery Disease Father other (UMA'S DISEASE) Brother Liver dse, cirrhosis Social History Tobacco Use Smoking status: Former Packs/day: 2.00 Years: 35.00 Pack years: 70.00 Types: Cigarettes Quit date: 11/09/2005 Years since quittin.5 Smokeless tobacco: Never Tobacco comments: Stopped smoking 12/2005 Vaping Use Vaping Use: Never used Substance Use Topics Alcohol use: Not Currently Drug use: No PHYSICAL EXAM BP 152/70 Pulse (!) 53 Temp 36.4 C (97.6 F) (Temporal) Resp 16 Wt 61.2 kg (135 lb) SpO2 95% BMI 25.51 kg/m General Appearance: well appearing, in no acute distress, alert Skin: Skin color, texture, turgor normal for age; Eyes: conjunctiva pink and moist, no icterus, sclera white, non-injected Ears: external ears normal to inspection and palpation, canals clear, Left tympanic membrane normal. , Right tympanic membrane normal, small amount of fluid noted behind left TM. Right TM not full evaluated because of cerumen buildup. Nose/sinus: Nares normal. Septum midline. Mucosa normal. No drainage. Neck: Thyroid normal size and symmetric without palpable nodules, No adenopathy Oropharynx: tongue midline and normal, soft palate, uvula, and tonsils normal, palpation of salivary glands negative Lymph nodes: No cervical lymphadenopathy and No supraclavicular lymphadenopathy Lungs: Lungs clear to auscultation. No wheezing, rhonchi, rales. Heart: RRR without murmur, gallop, or rubs. No ectopy Abdomen: Abdomen soft, non-tender. Bowel sounds normal. No masses, organomegaly BUE Extremities: No deformities, edema, skin discoloration, clubbing or cyanosis. Good capillary refill. BLE Extremities: No deformities,skin discoloration, clubbing or cyanosis. Good capillary refill. , 1+ pitting edema to BLE Health maintenance reviewed with patient: SPIROMETRY Never done ALPHA-1 ANTITRYPSIN DEFICIENCY SCREENING Never done COLORECTAL CANCER SCREENING due on 11/21/2017 DTAP,TDAP,TD(1 - Tdap) due on 07/09/2018 MAMMOGRAM due on 01/15/2020 COVID-19 VACCINE(4 - Booster for Moderna series) due on 05/18/2021 SHINGRIX VACCINE(3 of 3) due on 11/14/2021 ADVANCE DIRECTIVE DISCUSSION Never done DEPRESSION ASSESSMENT due on 05/12/2022 ANNUAL PCP TEAM CHRONIC DISEASE VISIT due on 04/29/2023 BP CONTROLLED (<130/80) due on 04/29/2023 LIPID SCREEN due on 01/18/2025 DIABETES SCREEN due on 04/29/2025 BONE DENSITY Completed INFLUENZA Completed HEPATITIS C SCREENING Completed PNEUMOCOCCAL: 65+ Completed DATA REVIEWED: Most recent labs and imaging results. Outside chart from [facility] reviewed. ASSESSMENT/PLAN: 1. Shortness of breath - ICD9: 786.05, ICD10: R06.02 (primary diagnosis) - unsure on cause. Possibly from non cardiac or respiratory cause. Since still with low grade fever and fatigue will repeat CXR - XR CHEST 2V FRONTAL/LAT - discussed that Sindi has a large amount of sodium so she should not be drinking this and should try drinking plain water - follow up in 2 weeks 2. Fever, unspecified fever cause - ICD9: 780.60, ICD10: R50.9 See above - UA negative - UA DIP, URINE (POC) - CBC + DIFF - COMP METABOLIC PANEL - XR CHEST 2V FRONTAL/LAT 3. Other fatigue - ICD9: 780.79, ICD10: R53.83 Checking thyroid levels See #1 4. Elevated liver enzymes - ICD9: 790.5, ICD10: R74.8 - will recheck to evaluate for any changes form 2 weeks ago - CONSULT TO GASTROENTEROLOGY - CBC + DIFF - COMP METABOLIC PANEL - TSH BLD - T3 BLD - T4 FREE/FREE THYROX 5. Decreased appetite - ICD9: 783.0, ICD10: R63.0 - CONSULT TO GASTROENTEROLOGY - CBC + DIFF - COMP METABOLIC PANEL - TSH BLD - T3 BLD - T4 FREE/FREE THYROX 6. Foul smelling urine - ICD9: 791.9, ICD10: R82.90 - UA negative no further testing indicated - UA DIP, URINE (POC) 7. Dysphagia, unspecified type - ICD9: 787.20, ICD10: R13.10 - continue with recommendations by speech therapy 8. Hiatal hernia with GERD without esophagitis - ICD9: 553.3, 530.11, ICD10: K44.9, K21.9 - Discussed lifestyle modifications including losing weight, limiting caffeine, no meals three hours before sleep, and head of bed elevation - CONSULT TO GASTROENTEROLOGY 9. 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 - ICD9: 530.85, ICD10: K22.70 - CONSULT TO GASTROENTEROLOGY 10. Bilateral lower extremity edema - ICD9: 782.3, ICD10: R60.0 - no increase in chronic Discussed limiting pedialyte because of large salt content and will re-evaluate at 2 week check up. Prescription instructions reviewed with patient as applicable. Potential red flag symptoms discussed with the patient. Reviewed appropriate action plan to take if red flag symptoms occur. Patient agreeable to treatment plan. Gwendolyn Ballard APRN.CNP I spent 35 minutes in the visit, with more than 50% of the total [id number] time of the visit in counseling / coordination of care. documented in this encounter [facility] 05-08-2022 Miscellaneous Notes Noted. Will review further at follow up. Gwendolyn Ballard APRN.CNP Spoke with patient, had barium swallow study done, US is scheduled for Friday. Patient thinks she may be feeling a little better but legs are still feeling they are going to give out on patient. Patient is scheduled for follow up. Papers have been filled out for 04/24/22 through 05/25/21, but papers still need patient's signature. How is she feeling? I do not see a follow up scheduled or the US. Did she follow up elsewhere or have US elsewhere? If not she needs to be re-evaluated. Thank you Gwendolyn Ballard APRN.CNP Spoke with patient, Dr Manley wrote patietn off work 04/18-04/19. Patient went back to work and worked the 04-23 but has not worked since 04/23. Patient complains of severe fatigue, feels legs are giving out on her when walking so she stops until she feels better. Patient states stomach is swollen, labs showed her ALT was elevated, waiting on US to be scheduled. Patient is also complaining of brain fog, feels she has to stop and think to finish her thoughts. Please call patient and get more information regarding FMLA papers. When date did this begin? Is she still off work? I am assuming this is for your shortness of breath and other chronic conditions? Thank you Gwendolyn Ballard APRN.ANITHA documented in this encounter [facility] 05-01-2022 Miscellaneous Notes Brianda with Dr. Rider's office at [facility] called for referral and supporting papers faxed to [phone]. Identified pt with name and date of .. Done. Veronica Villar LPN documented in this encounter [facility] 04-30-2022 Miscellaneous Notes PATIENT NOTIFIED OF SAME. Order for US has been faxed to [facility] scheduling office. Recent labs and office note faxed to Dr. Rider's office. Patient had yet to hear from this office about an appointment. Did encourage patient to call his office to schedule a follow up. Barium swallow is scheduled for 05/14/22 at [facility] as that is the soonest available. Please call patient and let her know her labs are back and show her liver numbers are elevated. When is she scheduled to see Dr. Rider and when is her barium swallow scheduled for? I am going tot go ahead and add an ultrasound of the liver to her testing since numbers came back elevated. documented in this encounter [facility] 04-29-2022 History of Present illness Narrative SUBJECTIVE Elizabeth Delgado is a 76 year old female here today for an ER follow up. Chief Complaint Patient presents with: ER F/U: SOB and low hr Flecanide was decreased and heart rate has improved HPI Elizabeth Delgado is a 76 year old female who is an established patient of Dr. Manley who presents today for ER follow up. She had presented to ER for shortness of breath and a low heart rate on 04/27/2022. She was seen at [facility] and those records are available for review today and were reviewed with this visit. She had been seen on 04/26 for a virtual visit with another internal medicine provider and then seen in [facility] on 04/27 and advised to go to ER because of her trouble breathing. ER suspected she was having issues because of dose adjustments in her Flecainide and metoprolol. They advised she reduce her dosing and follow up with cardiology. Called cardiology and has not heard back yet from them. Needs to be set up for an echo. Sees Dr. Ibarra. She feels her real issue is that she is having trouble breathing from something going on with her abdomen. She has had abdominal distention for the last few weeks. Wondering about worsening hiatal hernia. No constipation and no diarrhea. Appetite is not great, only able to eat small amounts, has had more heart burn and more burping. Maybe some weight gain but has been inactive. Prior hernia repair, prior cholecystectomy. Having nausea, no vomiting. Sometimes some issues with swallowing. Sleeping with a wedge. No dark, tarry or coffee ground type stools. Has seen Dr. Rider for GI in the past. Her medications were reviewed today and her list is now up to date. Medications Current Outpatient Medications Medication Sig sucralfate (CARAFATE) 1 gram tablet Take 1 tablet by mouth before meals and at bedtime. omeprazole (PRILOSEC) 40 mg capsule Take 1 capsule by mouth twice daily. cyclobenzaprine (FLEXERIL) 10 mg tablet Take 1 tablet by mouth three times daily as needed for muscle spasm. apixaban (ELIQUIS) 5 mg tab(s) Take by mouth twice daily. Bifidobacterium infantis (ALIGN) 10.5 mg (10 million cell) chew Take 1 tablet by mouth once daily. furosemide (LASIX) 40 mg tablet Take 1 tablet by mouth once daily. metoprolol succinate ER (TOPROL XL) 50 mg 24 hr tablet Take 0.5 tablets by mouth once daily. (Patient taking differently: Take 25 mg by mouth twice daily.) potassium chloride ER (K-DUR, KLOR-CON) 20 mEq tablet Take 1 tablet by mouth twice daily. melatonin 3 mg ODT Take 1 tablet by mouth daily at bedtime. flecainide (TAMBOCOR) 100 mg tablet Take 100 mg by mouth twice daily. MULTIVITAMIN WITH MINERALS (ONE-A-DAY 50 PLUS ORAL) Take by mouth. CALCIUM CARBONATE/VITAMIN D3 (VITAMIN D-3 ORAL) Take 1,000 mg by mouth five times daily. [id number] ORAL Take by mouth. estradiol (ESTRACE) 0.01 % (0.1 mg/gram) vaginal cream Insert 1 gram inside the vagina nightly for 2 weeks, then insert 1 gram inside the vagina twice weekly (Patient not taking: Reported on 04/29/2022) oxyCODONE IR (ROXICODONE) 5 mg immediate release tablet Take 1 tablet by mouth every 6 hours as needed for pain. No current facility-administered medications for this visit. ALLERGIES Allergen Reactions Cardizem [Diltiazem* Swelling Codeine Vomiting Ringing in Ears. Entex [Phenylephrin* Rash Etodolac Other: See Comments Heart palpitations Meloxicam Other: See Comments Heart palpitations Naproxen Swelling Possible allergy? Pt relates to naproxen Surgical Tape Adhes* Rash Trazodone Other: See Comments rapid hear beat Zantac [Ranitidine * Rash, Swelling ACTIVE PROBLEM LIST Bcc (Basal Cell Carcinoma of Skin) - 12/24/2021 Heart Murmur - 12/24/2021 Chf (Congestive Heart Failure) (Formerly [facility]) - 12/24/2021 Vaginal Enterocele Due to Incomplete Uterovaginal Prolapse - 12/24/2021 S/P Cervical Spinal Fusion - 02/14/2016 History of Dvt (Deep Vein Thrombosis) - 11/10/2015 Generalized Arthritis - 09/25/2015 Comment: The patient has multiple joints that hurt. Her hands hurt her pretty good. Panlobular Emphysema (Formerly [facility]) - 04/28/2015 Atrial Fibrillation (Formerly [facility]) - 08/19/2014 Comment: afib 2012. Had cardioversion 2 times. Had cryoablation with Dr. Hammond. He said when the scar tissue forms she will be doing well and will be out of afib in a couple weeks. Hypertension - 07/21/2013 Smoking History - 06/09/2013 Rotator Cuff Tear - 07/13/2012 Comment: Non fixable rotator cuff tear. Tendonitis of Shoulder, Right - 05/25/2012 Carpal Tunnel Syndrome, Left - 01/30/2012 Persistent Disorder of Initiating Or Maintaining Sleep - 07/16/2006 Moses's Esophagus - 07/16/2006 Comment: 2015- egd did not show barrets she [...] with rare eosinophils suggestive of gastroesophageal reflux. Calculus of Kidney - 07/16/2006 Social History Tobacco Use Smoking status: Former Packs/day: 2.00 Years: 35.00 Pack years: 70.00 Types: Cigarettes Quit date: 11/09/2005 Years since quittin.4 Smokeless tobacco: Never Tobacco comments: Stopped smoking 12/2005 Vaping Use Vaping Use: Never used Substance Use Topics Alcohol use: Not Currently Drug use: No Review of Systems Respiratory: Positive for shortness of breath. Negative for apnea, cough, choking, chest tightness, wheezing and stridor. Cardiovascular: Negative. Gastrointestinal: Positive for abdominal distention, abdominal pain and nausea. Negative for anal bleeding, blood in stool, constipation, diarrhea, rectal pain and vomiting. OBJECTIVE BP 120/64 Pulse 77 Temp (Src) 99.8 (Left Tympanic) Resp 28 Wt 132 lb (59.9kg) SpO2 97% Physical Exam Vitals and nursing note reviewed. Constitutional: General: She is awake. She is not in acute distress. Appearance: She is well-developed and well-groomed. She is not ill-appearing, toxic-appearing or diaphoretic. HENT: Head: Normocephalic. Neck: Vascular: No JVD. Cardiovascular: Rate and Rhythm: Rhythm irregular. Heart sounds: Murmur heard. Pulmonary: Effort: Pulmonary effort is normal. No accessory muscle usage, prolonged expiration or respiratory distress. Breath sounds: Normal breath sounds. Abdominal: General: Bowel sounds are increased. There is no abdominal bruit. Palpations: There is no shifting dullness, fluid wave, hepatomegaly, splenomegaly, mass or pulsatile mass. Tenderness: There is abdominal tenderness in the epigastric area. There is no right CVA tenderness, left CVA tenderness, guarding or rebound. Negative signs include Da Silva's sign and McBurney's sign. Comments: Tender on palpation to upper epigastric region. Musculoskeletal: Right lower leg: No edema. Left lower leg: No edema. Skin: General: Skin is warm and dry. Capillary Refill: Capillary refill takes less than 2 seconds. Neurological: General: No focal deficit present. Mental Status: She is alert and oriented to person, place, and time. Mental status is at baseline. Psychiatric: Attention and Perception: Attention normal. Mood and Affect: Mood normal. Speech: Speech normal. Behavior: Behavior normal. Behavior is cooperative. Thought Content: Thought content normal. ASSESSMENT/PLAN: 1. Hiatal hernia with GERD without esophagitis - ICD9: 553.3, 530.11, ICD10: K44.9, K21.9 (primary diagnosis) Suspect a hiatal hernia as a cause for her symptoms, possibly a sliding hernia since no hernia was able to be seen on the CT of chest done at [facility]. We will have her schedule for a barium swallow and she needs to get set up to see GI/Dr. Rider to discuss a possible scope in light of her history of Moses's esophagus. She is already on omeprazole and Carafate, had adverse reactions to H2 blockers. Advised small frequent meals, continue to sleep with head up right, limit forward bending and tight fitting clothing and carbonation and caffeine. We will also check labs to get an idea of liver function since this was not done with prior labs. - CBC - COMP METABOLIC PANEL - XR MODIFIED BARIUM SWALLOW W SPEECH THERAPY 2. 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 - ICD9: 530.85, ICD10: K22.70 See above. 3. Encounter for therapeutic drug monitoring - ICD9: V58.83, ICD10: Z51.81 - CBC - COMP METABOLIC PANEL 4. Atrial fibrillation, unspecified type (HCC) - ICD9: 427.31, ICD10: I48.91 Follow up with cardiology to work on adjusting cardiac meds and set up echo. SHE IS TO RETURN TO ER IF WORSENING SYMPTOMS, SHORTNESS OF BREATH, CHEST PAIN OR CHEST TIGHTNESS. Portions of this note have been entered by ancillary staff. I have reviewed and when necessary edited, so that they are an adequate record of my encounter with this patient Please note that parts of this document were created using voice recognition software and therefore may contain grammatical errors. Patient verbalizes understanding of instructions from today's visit and in agreement with treatment plan. Questions answered. Agrees to call the office if questions, concerns of issues with acute symptoms not improving or if they worsen. See diagnoses and orders for additional plan(s). Allergies and medications were reviewed, list was updated, and refills given if needed. Past medical, surgical, social, and family history reviewed and updated as appropriate. Encouraged proper diet & exercise as well as compliance with taking medications. Age-appropriate health preventative measures were discussed. Return if symptoms worsen or fail to improve, for Keep next scheduled appointment.. Hodan Stevens APRN-ANITHA documented in this encounter [facility] 04-27-2022 History of Present illness Narrative Called to triage patient by [facility] staff Patient presents with complaints of abdominal pain with distention. +trouble breathing Patient had mid abdominal TTP, Slight distention noted Discussed that additional imaging is needed, that is not available. Referred to ED Amicable documented in this encounter [facility] 04-19-2022 Miscellaneous Notes Patient notified. ----- Message from Brandon Manley MD sent at 04/19/2022 1:43 PM EST ----- Chest xr is normal. documented in this encounter [facility] 03-22-2022 Miscellaneous Notes Patient notified. I sent in an updated FMLA form for her to return on 03/25 already, but will print a letter as well. Please notify patient this is ready for fern picker. Thank you Gwendolyn Ballard APRN.ANITHA Pt called and states she is ready to return to work on Friday03-25-22. Pt requesting a letter that she can return to work without restrictions 03-25-22. Please call when this is ready and her sister will fern picker for her. Veronica Villar LPN documented in this encounter [facility] 03-20-2022 Miscellaneous Notes Spoke with Ramona, new worksheet needing completed and faxed. Paperwork received Please call [employer]. I am the one that filled out FMLA for the pneumonia and CHF I have been seeing patient for. What exactly do they need. Thank you Gwendolyn Ballard APRN.ANITHA [employer] called and is notified of providers message. They voice understanding and reports they will send the message to a property claims adjuster. Asha Ortiz, RN Elizabeth was working with the orthopedist for her FMLA, So I am not sure this message is for me But, that being said, yes I think she should be on leave. Regards, Brandon Manley MD Edwardo from [facility] called in wanting to know if the provider had endorsed the Pt being off work. He was asking with what restrictions and when did they advise them to have off. The claim # is [id number]. Please call and advise. documented in this encounter [facility] 03-18-2022 History of Present illness Narrative CC: Patient presents with: Recheck: Follow up HPI Elizabeth Delgado is a 76 year old female who presents today for pneumonia and shortness of breath follow up. Shortness of breath has improved. No longer feels feverish or with chills. Started noticing improvement 24 hours after starting antibiotic. Only complaint is still feeling tired and chest pressure she has had for a while she has seen cardiology for. She was instructed to have a stress test ordered by cardiology which she has not scheduled yet. REVIEW OF SYSTEMS General: no fevers, no chills, no night sweats, no recurrent infections, no change in appetite, no change in energy, and no significant changes in weight Respiratory: no cough, no wheezing, no shortness of breath, no hemoptysis Cardiovascular: no palpitations and no swelling GI: No nausea, vomiting, or diarrhea Neurologic: No headache, weakness, numbness, tingling, dizziness, syncope. PAST MEDICAL HISTORY Diagnosis Date Anxiety Atrial fibrillation (HCC) s/p ablation 07/2015 Backache, unspecified Carpal tunnel syndrome, bilateral DVT (deep venous thrombosis) (HCC) remote Esophageal reflux History of cardioversion 10/31/2018 History of DVT (deep vein thrombosis) 11/10/2015 HTN (hypertension) Irritable bowel syndrome Left carotid bruit 09/14/2018 noted by cardiology Left ventricular systolic dysfunction 11/08/2016 PONV (postoperative nausea and vomiting) S/P cervical spinal fusion Scoliosis PAST SURGICAL HISTORY Procedure Laterality Date CHOLECYSTECTOMY 10/2016 COLONOSCOPY FLX DX W/COLLJ SPEC WHEN PFRMD 10/06/13 Colonoscopy COLONOSCOPY FLX DX W/COLLJ SPEC WHEN PFRMD 11/22/2015 Colonoscopy CONIZATION OF CERVIX, LEEP CURETTAGE EGD TRANSORAL BIOPSY SINGLE/MULTIPLE 02/08/11 ESOPHAGOGASTRODUODENOSCOPY TRANSORAL DIAGNOSTIC 10/06/13 EGD ESOPHAGOGASTRODUODENOSCOPY TRANSORAL DIAGNOSTIC 11/22/2015 EGD ESOPHAGOGASTRODUODENOSCOPY TRANSORAL DIAGNOSTIC 02/28/2016 EGD LIG/TRNSXJ FLP TUBE ABDL/VAG APPR UNI/BI Tubal ligation NEUROPLASTY &/TRANSPOS MEDIAN NRV CARPAL TUNNE 02/14/12 Carpal tunnel decomp - right OOPHORECTOMY PARTIAL/TOTAL UNI/BI 07/17/2010 Oophorectomy - left Dr. Manuel Hoover - Dr. Alessio Dahl PAST SURGICAL HISTORY OF NECK SURGERY, anterior fusion PAST SURGICAL HISTORY OF Face lift PAST SURGICAL HISTORY OF back surgery PAST SURGICAL HISTORY OF bilat foot surgey, bunionectomy PAST SURGICAL HISTORY OF benign tumor removed from right breast PAST SURGICAL HISTORY OF 03/2011 B/L cataract surgery with implants- Dr Jacob Aguilar at [facility] PAST SURGICAL HISTORY OF 07/27/15 cryo ablation, cardiac RPR UMBILICAL HRNA 5 YRS/> REDUCIBLE 07/17/2010 Hernia repair, umbilical >5yr [facility] Dr Manuel Hoover ALLERGIES Cardizem [Diltiazem Hcl], Codeine, Entex [Phenylephrine-Guaifenesin], Etodolac, Meloxicam, Naproxen, Surgical Tape Adhesives [Other], Trazodone, and Zantac [Ranitidine Hcl] MEDICATIONS levoFLOXacin (LEVAQUIN) 750 mg tablet Take 1 tablet by mouth once daily for 5 days. omeprazole (PRILOSEC) 40 mg capsule Take 1 capsule by mouth twice daily. estradiol (ESTRACE) 0.01 % (0.1 mg/gram) vaginal cream Insert 1 gram inside the vagina nightly for 2 weeks, then insert 1 gram inside the vagina twice weekly diclofenac, EC, (VOLTAREN) 75 mg EC tablet Can use every other day for pain/inflammation. Take with food. oxyCODONE IR (ROXICODONE) 5 mg immediate release tablet Take 1 tablet by mouth every 6 hours as needed for pain. cyclobenzaprine (FLEXERIL) 10 mg tablet Take 1 tablet by mouth three times daily as needed for muscle spasm. apixaban (ELIQUIS) 5 mg tab(s) Take by mouth twice daily. Bifidobacterium infantis (ALIGN) 10.5 mg (10 million cell) chew Take 1 tablet by mouth once daily. furosemide (LASIX) 40 mg tablet Take 1 tablet by mouth once daily. metoprolol succinate ER (TOPROL XL) 50 mg 24 hr tablet Take 0.5 tablets by mouth once daily. potassium chloride ER (K-DUR, KLOR-CON) 20 mEq tablet Take 1 tablet by mouth twice daily. melatonin 3 mg ODT Take 1 tablet by mouth daily at bedtime. flecainide (TAMBOCOR) 100 mg tablet Take 100 mg by mouth twice daily. MULTIVITAMIN WITH MINERALS (ONE-A-DAY 50 PLUS ORAL) Take by mouth. CALCIUM CARBONATE/VITAMIN D3 (VITAMIN D-3 ORAL) Take 1,000 mg by mouth five times daily. [id number]-[id number] ORAL Take by mouth. FAMILY HISTORY Problem Relation Age of Onset Hypertension Mother Stroke Mother Coronary Artery Disease Father other (UMA'S DISEASE) Brother Liver dse, cirrhosis Social History Tobacco Use Smoking status: Former Packs/day: 2.00 Years: 35.00 Pack years: 70.00 Types: Cigarettes Quit date: 11/09/2005 Years since quittin.3 Smokeless tobacco: Never Tobacco comments: Stopped smoking 12/2005 Vaping Use Vaping Use: Never used Substance Use Topics Alcohol use: Not Currently Drug use: No PHYSICAL EXAM BP 132/66 Pulse 66 Temp 36.4 C (97.6 F) (Temporal) Resp 16 Wt 60.8 kg (134 lb) SpO2 96% BMI 25.32 kg/m General Appearance: well appearing, in no acute distress, alert Skin: Skin color, texture, turgor normal for age; Eyes: conjunctiva pink and moist, no icterus, sclera white, non-injected Neck: Thyroid normal size and symmetric without palpable nodules, No adenopathy Lymph nodes: No cervical lymphadenopathy and No supraclavicular lymphadenopathy Lungs: Lungs clear to auscultation. No wheezing, rhonchi, rales. Heart: RRR without murmur, gallop, or rubs. No ectopy Health maintenance reviewed with patient: SPIROMETRY Never done BP CONTROLLED (<130/80) Never done ALPHA-1 ANTITRYPSIN DEFICIENCY SCREENING Never done COLORECTAL CANCER SCREENING due on 11/21/2017 DTAP,TDAP,TD(1 - Tdap) due on 07/09/2018 MAMMOGRAM due on 01/15/2020 ADVANCE DIRECTIVE DISCUSSION Never done DEPRESSION ASSESSMENT Never done COVID-19 VACCINE(4 - Booster for Moderna series) due on 05/18/2021 SHINGRIX VACCINE(3 of 3) due on 11/14/2021 ANNUAL PCP TEAM CHRONIC DISEASE VISIT due on 03/18/2023 LIPID SCREEN due on 01/18/2025 DIABETES SCREEN due on 03/15/2025 BONE DENSITY Completed INFLUENZA Completed HEPATITIS C SCREENING Completed PNEUMOCOCCAL: 65+ Completed DATA REVIEWED: Most recent labs and imaging results. ASSESSMENT/PLAN: 1. Pneumonia due to infectious organism, unspecified laterality, unspecified part of lung - ICD9: 486, ICD10: J18.9 - symptoms improving with Levaquin - - patient to go to ER for any change in her midsternal chest pressure, shortness of breath, any palpitations, or other urgent concern - no effusion on chest xray - so restarting lasix at baseline dose Prescription instructions reviewed with patient as applicable. Potential red flag symptoms discussed with the patient. Reviewed appropriate action plan to take if red flag symptoms occur. Patient agreeable to treatment plan. Gwendolyn Ballard APRN.CNP documented in this encounter [facility] 03-08-2022 Instructions Gwendolyn Ballard APRN.CNP - 03/08/2022 11:34 AM EDT Take omeprazole first thing in the morning 1/2 to 1 hour prior to any other medication. Take antibiotics with food. Can use Tums for any heart burn as directed. documented in this encounter [facility] 03-08-2022 History of Present illness Narrative CC: Patient presents with: Recheck: Follow up pneumonia HPI Elizabeth Delgado is a 76 year old female who presents today for follow up on pneumonia. [facility] and fever noted at a MD appointment on 03/06/22. Had chest xray completed showing RML and LLL consolidations and small effusion. Started on Augmentin and doxycyline along with increased lasix to 80mg once a day for 3 days. Has only been on antibiotics for 36 hours. Fever and chills have resolved. Still with shortness of breath, dizziness, decreased appetite, fatigue, bloated abdomen, and nausea. Can feel heartburn and acid in her throat since yesterday and noticed her abdomen is tender. Has been taking her antibiotics first thing is the morning without food and taking her PPI after. Denies cough, chest pain, palpitations, or edema. REVIEW OF SYSTEMS General: no fevers, no chills, no night sweats, no recurrent infections, and no significant changes in weight Respiratory: no cough, no wheezing, no hemoptysis Cardiovascular: no chest pain, no chest pressure, no palpitations, and no swelling Neurologic: No headache, weakness, numbness, tingling, syncope. PAST MEDICAL HISTORY Diagnosis Date Anxiety Atrial fibrillation (HCC) s/p ablation 07/2015 Backache, unspecified Carpal tunnel syndrome, bilateral DVT (deep venous thrombosis) (HCC) remote Esophageal reflux History of cardioversion 10/31/2018 History of DVT (deep vein thrombosis) 11/10/2015 HTN (hypertension) Irritable bowel syndrome Left carotid bruit 09/14/2018 noted by cardiology Left ventricular systolic dysfunction 11/08/2016 PONV (postoperative nausea and vomiting) S/P cervical spinal fusion Scoliosis PAST SURGICAL HISTORY Procedure Laterality Date CHOLECYSTECTOMY 10/2016 COLONOSCOPY FLX DX W/COLLJ SPEC WHEN PFRMD 10/06/13 Colonoscopy COLONOSCOPY FLX DX W/COLLJ SPEC WHEN PFRMD 11/22/2015 Colonoscopy CONIZATION OF CERVIX, LEEP CURETTAGE EGD TRANSORAL BIOPSY SINGLE/MULTIPLE 02/08/11 ESOPHAGOGASTRODUODENOSCOPY TRANSORAL DIAGNOSTIC 10/06/13 EGD ESOPHAGOGASTRODUODENOSCOPY TRANSORAL DIAGNOSTIC 11/22/2015 EGD ESOPHAGOGASTRODUODENOSCOPY TRANSORAL DIAGNOSTIC 02/28/2016 EGD LIG/TRNSXJ FLP TUBE ABDL/VAG APPR UNI/BI Tubal ligation NEUROPLASTY &/TRANSPOS MEDIAN NRV CARPAL TUNNE 02/14/12 Carpal tunnel decomp - right OOPHORECTOMY PARTIAL/TOTAL UNI/BI 07/17/2010 Oophorectomy - left Dr. Manuel Hoover - Dr. Alessio Dahl PAST SURGICAL HISTORY OF NECK SURGERY, anterior fusion PAST SURGICAL HISTORY OF Face lift PAST SURGICAL HISTORY OF back surgery PAST SURGICAL HISTORY OF bilat foot surgey, bunionectomy PAST SURGICAL HISTORY OF benign tumor removed from right breast PAST SURGICAL HISTORY OF 03/2011 B/L cataract surgery with implants- Dr Jacob Aguilar at [facility] PAST SURGICAL HISTORY OF 07/27/15 cryo ablation, cardiac RPR UMBILICAL HRNA 5 YRS/> REDUCIBLE 07/17/2010 Hernia repair, umbilical >5yr [facility] Dr Manuel Hoover ALLERGIES Cardizem [Diltiazem Hcl], Codeine, Entex [Phenylephrine-Guaifenesin], Etodolac, Meloxicam, Naproxen, Surgical Tape Adhesives [Other], Trazodone, and Zantac [Ranitidine Hcl] MEDICATIONS omeprazole (PRILOSEC) 40 mg capsule Take 1 capsule by mouth twice daily. estradiol (ESTRACE) 0.01 % (0.1 mg/gram) vaginal cream Insert 1 gram inside the vagina nightly for 2 weeks, then insert 1 gram inside the vagina twice weekly diclofenac, EC, (VOLTAREN) 75 mg EC tablet Can use every other day for pain/inflammation. Take with food. oxyCODONE IR (ROXICODONE) 5 mg immediate release tablet Take 1 tablet by mouth every 6 hours as needed for pain. cyclobenzaprine (FLEXERIL) 10 mg tablet Take 1 tablet by mouth three times daily as needed for muscle spasm. apixaban (ELIQUIS) 5 mg tab(s) Take by mouth twice daily. Bifidobacterium infantis (ALIGN) 10.5 mg (10 million cell) chew Take 1 tablet by mouth once daily. furosemide (LASIX) 40 mg tablet Take 1 tablet by mouth once daily. metoprolol succinate ER (TOPROL XL) 50 mg 24 hr tablet Take 0.5 tablets by mouth once daily. potassium chloride ER (K-DUR, KLOR-CON) 20 mEq tablet Take 1 tablet by mouth twice daily. melatonin 3 mg ODT Take 1 tablet by mouth daily at bedtime. flecainide (TAMBOCOR) 100 mg tablet Take 100 mg by mouth twice daily. MULTIVITAMIN WITH MINERALS (ONE-A-DAY 50 PLUS ORAL) Take by mouth. CALCIUM CARBONATE/VITAMIN D3 (VITAMIN D-3 ORAL) Take 1,000 mg by mouth five times daily. [id number] ORAL Take by mouth. FAMILY HISTORY Problem Relation Age of Onset Hypertension Mother Stroke Mother Coronary Artery Disease Father other (UMA'S DISEASE) Brother Liver dse, cirrhosis Social History Tobacco Use Smoking status: Former Packs/day: 2.00 Years: 35.00 Pack years: 70.00 Types: Cigarettes Quit date: 11/09/2005 Years since quittin.3 Smokeless tobacco: Never Tobacco comments: Stopped smoking 12/2005 Vaping Use Vaping Use: Never used Substance Use Topics Alcohol use: Not Currently Drug use: No PHYSICAL EXAM Pulse (P) 68 Resp (P) 16 Wt (P) 58.5 kg (129 lb) BMI (P) 24.37 kg/m General Appearance: well appearing, in no acute distress, alert Skin: Skin color, texture, turgor normal for age; Eyes: conjunctiva pink and moist, no icterus, sclera white, non-injected Neck: Thyroid normal size and symmetric without palpable nodules, No adenopathy Lymph nodes: No cervical lymphadenopathy and No supraclavicular lymphadenopathy Lungs: Lungs clear to auscultation. No wheezing, rhonchi, rales. Heart: RRR without murmur, gallop, or rubs. No ectopy Abdomen: Abdomen soft, Bowel sounds normal. No masses, organomegaly. Slight tenderness reported to mid epigastric without grimacing guarding rigidity or rebound pain. BUE Extremities: No deformities, edema, skin discoloration, clubbing or cyanosis. Good capillary refill. Health maintenance reviewed with patient: SPIROMETRY Never done ALPHA-1 ANTITRYPSIN DEFICIENCY SCREENING Never done COLORECTAL CANCER SCREENING due on 11/21/2017 DTAP,TDAP,TD(1 - Tdap) due on 07/09/2018 MAMMOGRAM due on 01/15/2020 ADVANCE DIRECTIVE DISCUSSION Never done DEPRESSION ASSESSMENT Never done COVID-19 VACCINE(4 - Booster for Moderna series) due on 05/18/2021 SHINGRIX VACCINE(3 of 3) due on 11/14/2021 ANNUAL PCP TEAM CHRONIC DISEASE VISIT due on 02/22/2023 BP CONTROLLED (<130/80) due on 02/22/2023 DIABETES SCREEN due on 12/24/2024 LIPID SCREEN due on 01/18/2025 BONE DENSITY Completed INFLUENZA Completed HEPATITIS C SCREENING Completed PNEUMOCOCCAL: 65+ Completed DATA REVIEWED: Outside chart from Urgent Care reviewed. ASSESSMENT/PLAN: 1. Pneumonia due to infectious organism, unspecified laterality, unspecified part of lung - ICD9: 486, ICD10: J18.9 (primary diagnosis) - improving, only been on treatment for 3 hours. Discussed with patient the fatigue and shortness of breath will improve but this will take time. - go to ER for increased shortness of breath, chest pain, palpations, or any other urgent concern. - follow up next week 2. Congestive heart failure, unspecified HF chronicity, unspecified heart failure type (HCC) - ICD9: 428.0, ICD10: I50.9 - no crackles noted on exam, vitals stable - continue with current treatment as prescribed by cardiology 3. Gastroesophageal reflux disease, unspecified whether esophagitis present - ICD9: 530.81, ICD10: K21.9 - discussed using PPI first thing in AM on empty stomach and take antibiotics 1/2 to 1 hour after with food - take tums for break through heart burn - sleep with HOB elevated. Prescription instructions reviewed with patient as applicable. Potential red flag symptoms discussed with the patient. Reviewed appropriate action plan to take if red flag symptoms occur. Patient agreeable to treatment plan. Gwendolyn Ballard APRN.ANITHA documented in this encounter [facility] 02-25-2022 Miscellaneous Notes Patient saw result via my chart. Alexandra Leonard ----- Message from Brandon Manley MD sent at 02/25/2022 9:40 AM EDT ----- Please let patient know, her covid and flu, were negative Regards, Brandon Manley MD documented in this encounter [facility] 02-22-2022 History of Present illness Narrative Reason for Visit Patient presents with: Sore Throat Elizabeth Delgado is a 76 year old female who presents here today for Above Complaints.. Health Maintenance SPIROMETRY BP CONTROLLED (<130/80) ALPHA-1 ANTITRYPSIN DEFICIENCY SCREENING COLORECTAL CANCER SCREENING DTAP,TDAP,TD(1 - Tdap) MAMMOGRAM ADVANCE DIRECTIVE DISCUSSION DEPRESSION ASSESSMENT COVID-19 VACCINE(4 - Booster for Moderna series) SHINGRIX VACCINE(3 of 3) HPI Exposed to her family members who had strep and wore an antibiotic for couple days when the came to her and were in very close contact her. She says that happened on Friday on and Friday she started having symptoms. Some significant sore throat, a little bit of sinusitis. Pain around the frontal and maxillary sinuses and lymph node enlargement in the right submandibular areas. Some chills if any mild with fever but no fever more than 100. Some mildly and overall she just does not feel very well. She notes that she got a steroid shot in her arms and she went into A. fib. She also notes when her reflux is not well controlled she has worsening A. fib No problem-specific Assessment & Plan notes found for this encounter. PAST MEDICAL HISTORY Diagnosis Date Anxiety Atrial fibrillation (HCC) s/p ablation 07/2015 Backache, unspecified Carpal tunnel syndrome, bilateral DVT (deep venous thrombosis) (HCC) remote Esophageal reflux History of cardioversion 10/31/2018 History of DVT (deep vein thrombosis) 11/10/2015 HTN (hypertension) Irritable bowel syndrome Left carotid bruit 09/14/2018 noted by cardiology Left ventricular systolic dysfunction 11/08/2016 PONV (postoperative nausea and vomiting) S/P cervical spinal fusion Scoliosis PAST SURGICAL HISTORY Procedure Laterality Date CHOLECYSTECTOMY 10/2016 COLONOSCOPY FLX DX W/COLLJ SPEC WHEN PFRMD 10/06/13 Colonoscopy COLONOSCOPY FLX DX W/COLLJ SPEC WHEN PFRMD 11/22/2015 Colonoscopy CONIZATION OF CERVIX, LEEP CURETTAGE EGD TRANSORAL BIOPSY SINGLE/MULTIPLE 02/08/11 ESOPHAGOGASTRODUODENOSCOPY TRANSORAL DIAGNOSTIC 10/06/13 EGD ESOPHAGOGASTRODUODENOSCOPY TRANSORAL DIAGNOSTIC 11/22/2015 EGD ESOPHAGOGASTRODUODENOSCOPY TRANSORAL DIAGNOSTIC 02/28/2016 EGD LIG/TRNSXJ FLP TUBE ABDL/VAG APPR UNI/BI Tubal ligation NEUROPLASTY &/TRANSPOS MEDIAN NRV CARPAL TUNNE 02/14/12 Carpal tunnel decomp - right OOPHORECTOMY PARTIAL/TOTAL UNI/BI 07/17/2010 Oophorectomy - left Dr. Manuel Hoover - Dr. Alessio Dahl PAST SURGICAL HISTORY OF NECK SURGERY, anterior fusion PAST SURGICAL HISTORY OF Face lift PAST SURGICAL HISTORY OF back surgery PAST SURGICAL HISTORY OF bilat foot surgey, bunionectomy PAST SURGICAL HISTORY OF benign tumor removed from right breast PAST SURGICAL HISTORY OF 03/2011 B/L cataract surgery with implants- Dr Jacob Aguilar at [facility] PAST SURGICAL HISTORY OF 07/27/15 cryo ablation, cardiac RPR UMBILICAL HRNA 5 YRS/> REDUCIBLE 07/17/2010 Hernia repair, umbilical >5yr [facility] Dr Manuel Hoover FAMILY HISTORY Problem Relation Age of Onset Hypertension Mother Stroke Mother Coronary Artery Disease Father other (UMA'S DISEASE) Brother Liver dse, cirrhosis Social History Tobacco Use Smoking status: Former Packs/day: 2.00 Years: 35.00 Pack years: 70.00 Types: Cigarettes Quit date: 11/09/2005 Years since quittin.2 Smokeless tobacco: Never Tobacco comments: Stopped smoking 12/2005 Vaping Use Vaping Use: Never used Substance Use Topics Alcohol use: Not Currently Drug use: No Past medical history, appointments, medications, allergies reviewed. Pertinent Lab/Diagnostic Studies are reviewed and discussed today Current Outpatient Medications: estradiol (ESTRACE) 0.01 % (0.1 mg/gram) vaginal cream diclofenac, EC, (VOLTAREN) 75 mg EC tablet oxyCODONE IR (ROXICODONE) 5 mg immediate release tablet omeprazole (PRILOSEC) 40 mg capsule cyclobenzaprine (FLEXERIL) 10 mg tablet apixaban (ELIQUIS) 5 mg tab(s) Bifidobacterium infantis (ALIGN) 10.5 mg (10 million cell) chew furosemide (LASIX) 40 mg tablet metoprolol succinate ER (TOPROL XL) 50 mg 24 hr tablet potassium chloride ER (K-DUR, KLOR-CON) 20 mEq tablet melatonin 3 mg ODT flecainide (TAMBOCOR) 100 mg tablet MULTIVITAMIN WITH MINERALS (ONE-A-DAY 50 PLUS ORAL) CALCIUM CARBONATE/VITAMIN D3 (VITAMIN D-3 ORAL) [id number] ORAL Review of Systems CONSTITUTIONAL: No fevers, chills [...] or numbness of concern. Physical Exam BP 124/78 Pulse 60 Temp 36.3 C (97.3 F) Resp 16 Wt 59.4 kg (131 lb) SpO2 96% BMI 24.75 kg/m General appearance: Well appearing, alert, in no [...] or cyanosis. Good capillary refill. ASSESSMENT/PLAN: 1. Sore throat - ICD9: 462, ICD10: J02.9 (primary diagnosis) - GROUP A STREPTOCOCCUS BY PCR - 2019 CORONAVIRUS - COVID WITH FLUA+B, ROUTINE 2. Chills with fever - ICD9: 780.60, ICD10: R50.9 - GROUP A STREPTOCOCCUS BY PCR - 2019 CORONAVIRUS - COVID WITH FLUA+B, ROUTINE 3. 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 - ICD9: 530.85, ICD10: K22.7 - OMEPRAZOLE 40 MG CAPSULE,DELAYED RELEASE Brandon Manley MD documented in this encounter [facility] 01-21-2022 History of Present illness Narrative Reason for Visit Patient presents with: F/U 3 months Elizabeth Delgado is a 76 year old female who presents here today for Above Complaints.. Health Maintenance SPIROMETRY ALPHA-1 ANTITRYPSIN DEFICIENCY SCREENING COLORECTAL CANCER SCREENING DTAP,TDAP,TD(1 - Tdap) MAMMOGRAM ADVANCE DIRECTIVE DISCUSSION COVID-19 VACCINE(4 - Booster for Moderna series) SHINGRIX VACCINE(3 of 3) INFLUENZA(1) HPI She had a cystocele/enterocele surgery. She does feel pain still, she is struggling with the coccyx and some pressure and irritation in the bladder. Her recovery is not easy, she Is having to sit a lot as she cannot use a sweeper, work etc She has not fever, but increased frequency, her leucocytes are positive and the blood is positive, She is still having discharge from the urethra. No problem-specific Assessment & Plan notes found for this encounter. PAST MEDICAL HISTORY Diagnosis Date Anxiety Atrial fibrillation (HCC) s/p ablation 07/2015 Backache, unspecified Carpal tunnel syndrome, bilateral DVT (deep venous thrombosis) (HCC) remote Esophageal reflux History of cardioversion 10/31/2018 History of DVT (deep vein thrombosis) 11/10/2015 HTN (hypertension) Irritable bowel syndrome Left carotid bruit 09/14/2018 noted by cardiology Left ventricular systolic dysfunction 11/08/2016 PONV (postoperative nausea and vomiting) S/P cervical spinal fusion Scoliosis PAST SURGICAL HISTORY Procedure Laterality Date CHOLECYSTECTOMY 10/2016 COLONOSCOPY FLX DX W/COLLJ SPEC WHEN PFRMD 10/06/13 Colonoscopy COLONOSCOPY FLX DX W/COLLJ SPEC WHEN PFRMD 11/22/2015 Colonoscopy CONIZATION OF CERVIX, LEEP CURETTAGE EGD TRANSORAL BIOPSY SINGLE/MULTIPLE 02/08/11 ESOPHAGOGASTRODUODENOSCOPY TRANSORAL DIAGNOSTIC 10/06/13 EGD ESOPHAGOGASTRODUODENOSCOPY TRANSORAL DIAGNOSTIC 11/22/2015 EGD ESOPHAGOGASTRODUODENOSCOPY TRANSORAL DIAGNOSTIC 02/28/2016 EGD LIG/TRNSXJ FLP TUBE ABDL/VAG APPR UNI/BI Tubal ligation NEUROPLASTY &/TRANSPOS MEDIAN NRV CARPAL TUNNE 02/14/12 Carpal tunnel decomp - right OOPHORECTOMY PARTIAL/TOTAL UNI/BI 07/17/2010 Oophorectomy - left Dr. Manuel Hoover - Dr. Alessio Dahl PAST SURGICAL HISTORY OF NECK SURGERY, anterior fusion PAST SURGICAL HISTORY OF Face lift PAST SURGICAL HISTORY OF back surgery PAST SURGICAL HISTORY OF bilat foot surgey, bunionectomy PAST SURGICAL HISTORY OF benign tumor removed from right breast PAST SURGICAL HISTORY OF 03/2011 B/L cataract surgery with implants- Dr Jacob Aguilar at [facility] PAST SURGICAL HISTORY OF 07/27/15 cryo ablation, cardiac RPR UMBILICAL HRNA 5 YRS/> REDUCIBLE 07/17/2010 Hernia repair, umbilical >5yr [facility] Dr Manuel Hoover FAMILY HISTORY Problem Relation Age of Onset Hypertension Mother Stroke Mother Coronary Artery Disease Father other (UMA'S DISEASE) Brother Liver dse, cirrhosis Social History Tobacco Use Smoking status: Former Packs/day: 2.00 Years: 35.00 Pack years: 70.00 Types: Cigarettes Quit date: 11/09/2005 Years since quittin.2 Smokeless tobacco: Never Tobacco comments: Stopped smoking 12/2005 Vaping Use Vaping Use: Never used Substance Use Topics Alcohol use: Not Currently Drug use: No Past medical history, appointments, medications, allergies reviewed. Pertinent Lab/Diagnostic Studies are reviewed and discussed today Current Outpatient Medications: docusate sodium (COLACE) 100 mg capsule polyethylene glycol 3350 (MIRALAX) 17 gram/dose powder oxyCODONE IR (ROXICODONE) 5 mg immediate release tablet omeprazole (PRILOSEC) 40 mg capsule diclofenac, EC, (VOLTAREN) 75 mg EC tablet cyclobenzaprine (FLEXERIL) 10 mg tablet apixaban (ELIQUIS) 5 mg tab(s) Bifidobacterium infantis (ALIGN) 10.5 mg (10 million cell) chew furosemide (LASIX) 40 mg tablet metoprolol succinate ER (TOPROL XL) 50 mg 24 hr tablet potassium chloride ER (K-DUR, KLOR-CON) 20 mEq tablet melatonin 3 mg ODT flecainide (TAMBOCOR) 100 mg tablet MULTIVITAMIN WITH MINERALS (ONE-A-DAY 50 PLUS ORAL) CALCIUM CARBONATE/VITAMIN D3 (VITAMIN D-3 ORAL) [id number] ORAL Review of Systems CONSTITUTIONAL: No fevers, chills [...] or numbness of concern. Physical Exam BP 138/68 Pulse (!) 56 Resp 16 Wt 59 kg (130 lb) BMI 24.56 kg/m General appearance: Well appearing, alert, in no [...] or cyanosis. Good capillary refill. ASSESSMENT/PLAN: 1. Congestive heart failure, unspecified HF chronicity, unspecified heart failure type (HCC) - ICD9: 428.0, ICD10: I50.9 (primary diagnosis) Weight increasing - Behavioral intervention 2. Need for influenza vaccination - ICD9: V04.81, ICD10: Z23 3. Frequency of urination - ICD9: 788.41, ICD10: R35.0 - UA DIP, URINE (POC) - URINE CULTURE 4. Primary hypertension - ICD9: 401.9, ICD10: I10 Blood pressure is elevated. 5. Generalized arthritis - ICD9: 716.90, ICD10: M19.90 - DICLOFENAC SODIUM 75 MG TABLET,DELAYED RELEASE Brandon Manley MD documented in this encounter [facility] 01-04-2022 Miscellaneous Notes Spoke with patient about her concerns. She is having right sided butt pain that is painful to sit. We discussed the nature of her surgery and that this pain is normal and will start to resolve as inflammation decreases and sutures start to dissolve. She said it hurts to sit but she is able to walk. Reports she is having bowel movements but they are small. She is taking tylenol and some motrin. Reports the motrin doesn't help. She doesn't like how the oxycodone make her feel so she hasn't taken them. I offered a script for tramadol that she declined. She says she has flexeril at home she would like to try. She is to call us back with any further concerns. She denies heavy vaginal bleeding, fevers, chills. Mavis Saunders MD documented in this encounter [facility] 01-04-2022 Miscellaneous Notes Called patient verified name and States her pain is a 8/10 Has been taking tylenol and motrin pain constant Having contraction like pain in her buttocks on the right side, constant Also states last night had a fever of 100.1 F but then she she got up this morning and it was 97.5 F Urinating ok Has had 2 BM Has flexeril at home and wondering if this would help her pain The oxycodone make her sick so she wont take it Routing to the UROGN FELLOW [facility]OL Surgery/Procedure Date: 01/01/2022 Procedure(s): Sacrospinous ligament suspension of the uterus/extraperitoneal hysteropexy Enterocele repair, Posterior colporrhaphy, Perineorrhaphy Cystourethroscopy Patient LVM on nurse triage line stating she is having a lot of pain. Wondering if this is normal. S/p 01/01/2022 Sacrospinous ligament suspension of the uterus/extraperitoneal hysteropexy Enterocele repair, Posterior colporrhaphy, Perineorrhaphy Cystourethroscopy Corie Lara RN January 04, 2022 11:34 AM documented in this encounter [facility] 12-28-2021 Miscellaneous Notes Per Trinidad Soto CNP she is okay to continue the probiotic. Called patient and made her aware. Tamica Rodriguez LPN Called and made patient aware of Eliquis hold instructions. Patient agreeable. Patient did have a question whether she needs to hold her probiotic since she is holding her vitamins? Received holding instructions from [facility] for patients Eliquis. Per RENEE Quinn patient is okay to hold Eliquis 3 day prior to surgery. Copy of letter given fto Trinidad Soto CNP and original sent to pocket machine operator to scan. Tamica Rodriguez LPN documented in this encounter [facility] 12-27-2021 History of Present illness Narrative Radiology Service Progress Note PATIENT NAME: Elizabeth Delgado DATE OF SERVICE: December 27, 2021 TIME: 10:16 AM PATIENT IDENTITY VERIFICATION COMPLETED USING TWO (2) IDENTIFIERS: Name and Date of confirmed by patient verbally. FALL SCREENING: Has the patient had 2 falls in the last year or 1 fall with injury or currently using an Ambulatory Assistive Device (Walker, Cane, Wheelchair, Crutches, etc.)? No PATIENT GENDER DATA: Female. status: : No status: N/A PATIENT RELEVANT IMPLANT DATA REVIEWED: Not Applicable RADIOLOGY DEPARTMENT: Ultrasound PERIPHERAL IV DATA: Not applicable SIGNED BY: Tamica Craven RDMS RVT December 27, 2021 10:16 AM documented in this encounter [facility] 12-26-2021 Miscellaneous Notes The patient is aware of the ultrasound appointment tomorrow at [facility]. LVM to call back to get her in touch with Dr. Pizraro documented in this encounter [facility] 12-24-2021 History of Present illness Narrative This was a telephone visit, including two-way audio in lieu of an in-person visit. The patient provided verbal consent to participate in the telehealth visit. Patient's name and date of verified. DATE OF SERVICE: 12/24/2021 PROBLEM: Elizabeth Delgado presents for pre-op teaching. 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, cystocele, rectocele, incomplete uterovaginal prolapse, overactive bladder SCHEDULED SURGERY AND DATE: ROBOTIC LAPAPORSCOPIC SUPRACERVICAL HYSTERECTOMY REM TUBE(S) / OVARY(S) UTERUS=<250G (N/A) COLPOPEXY LAPAROSCOPIC (N/A) ANTERIOR COLPORRHAPHY REPAIR CYSTOCELE WITH OR W/O REPAIR URETHROCELE INCLUDING CYSTOURETHROSCOPY WHEN PERFORMED (N/A) POSTERIOR COLPORRHAPHY W/ REPAIR RECTOCELE AND PERINEORRHAPHY (N/A) CYSTOSCOPY (N/A) SUSPENSION BLADDER SLING TAPE TRANSVAGINAL (N/A) On 01/01/22 PRIMARY SURGEON: Dr. Qiana Pizarro NURSING PREOP ASSESSMENT: Fevers, chills, cough, or nasal congestion: No Vaginal itching, burning, discharge, or odor: No Pain with urination, frequency, urgency, cloudy or foul smelling urine: No If yes to any of the above then MD notified: Not Applicable ADVANCED CARE PLANNING: Does the patient have an advanced directive: No Does [facility] have a copy of the patient's advanced directive: No Was advanced directive given to the patient: No PATIENT LEARNING ASSESSMENT: Individual patient/family learning needs evaluated and addressed: Yes Cognitive ability: Alert and oriented Motivation to learn: Eager Interested Factors affecting learning: None Physical limitations affecting learning: None Patient learns best by: Individual Instruction Written Instruction - Hand-outs Verbal Instruction Method of instruction: Individual instruction Written instruction - handouts Verbal instruction Instructions provided to: Patient via telephone. Written material provided prior to education appointment. Family support: Unable to assess - Family not present PRE- AND POST-OPERATIVE TEACHING Pre-operative teaching and supplemental material provided and reviewed with patient: Your Surgical Guide Book Map Written pre-op and post-op instructions Antibacterial soap: patient declined, will use own Pre-operative instructions provided and reviewed with patient/family: No eating, drinking, or smoking after midnight prior to surgery unless otherwise directed No alcohol the day before surgery Medications as prescribed by anesthesia, internal medicine, surgeon, or [facility] Stop NSAIDs, Aspirin (ASA), vitamins, herbal supplements, herbal teas, and diet pills 7-10 days prior to surgery OK to take tylenol prn pain unless otherwise directed by physician Call surgery coordinators if any other questions about surgery date or pre-op appointments Bowel prep instructions: NPO after midnight Day of surgery instructions provided and reviewed with patient/family: Arrival time (call surgical coordinators on the office day prior to surgery for verification) No jewelry, body piercing, makeup, contacts, lotions, nail wallisian on fingers, or anything in hair on arrival to surgery Wear low healed shoes and loose fitting clothing Leave all valuables at home or with a family member Directions to [facility] and [facility] Parking/parking validation on the day prior to surgery Admission/check in (Report to DESK J1-9 for surgery) Holding area Placement of IV Surgical positioning Family waiting area Surgical recovery room Post-operative instructions provided and reviewed with patient/family: SEE PATIENT INSTRUCTION SECTION FOR DETAILS. ACTIVITY - No heavy lifting (>5-10 lbs), no pushing/pulling, OK to climb stairs DIET - Advance diet as tolerated and as ordered by MD, drink 8 glasses of water a day, eat a diet high in protein and fiber unless otherwise directed by MD. CATHETER - Will be inserted during surgery, you may go home with a catheter for 7-10 days and will have to come back to the office for a voiding trial, UTI symptoms reviewed and patient instructed to notify MD of any of these symptoms. VAGINAL CARE - Pelvic rest x6 weeks unless otherwise directed by MD. SYMPTOMS TO NOTIFY MD - Fever, chills, nausea, vomiting, increased or severe pain, heavy vaginal bleeding, foul smelling vaginal drainage, pain or swelling in extremities. URGENT SYMPTOMS - Call 911 or go to ER if any shortness of breath, difficulty breathing, or chest pain. HOW TO CONTACT PHYSICIAN - Physician's office phone number given to patient, if after hours patient instructed to call pocket machine operator and ask for ergonomics engineer supervisor inspection room onc resident. Additional teaching as indicated by patient/family learning needs. PATIENT LEARNING EVALUATION & FOLLOW UP PLAN: Patient and/or family express understanding of upcoming surgery, pre-operative preparation, the operative process, and post-operative instructions. Follow up plan: Complete - No need for follow-up Patient has a post-op appointment scheduled: Yes, 02/04/22 Referral (recommentation): None Educator: Irma Adair APRN.ANITHA [facility] documented in this encounter [facility] 12-24-2021 History and physical note HISTORY AND PHYSICAL EXAMINATION SERVICE DATE: 12/24/2021 SERVICE TIME: 8:25 AM PRIMARY CARE PHYSICIAN: Brandon Manley MD REASON FOR VISIT: Elizabeth Delgado is a 76 year old female who is scheduled for Procedure(s): ROBOTIC LAPAPORSCOPIC SUPRACERVICAL HYSTERECTOMY REM TUBE(S) / OVARY(S) UTERUS=<250G (N/A) COLPOPEXY LAPAROSCOPIC (N/A) ANTERIOR COLPORRHAPHY REPAIR CYSTOCELE WITH OR W/O REPAIR URETHROCELE INCLUDING CYSTOURETHROSCOPY WHEN PERFORMED (N/A) POSTERIOR COLPORRHAPHY W/ REPAIR RECTOCELE AND PERINEORRHAPHY (N/A) CYSTOSCOPY (N/A) SUSPENSION BLADDER SLING TAPE TRANSVAGINAL (N/A) at the request of Dr. Qiana Pizarro for consultation. My final recommendation will be communicated back to the requesting physician by way of shared medical record or letter. Subjective The patient has the following: ACTIVE PROBLEM LIST Persistent Disorder of Initiating Or Maintaining Sleep Moses's Esophagus Calculus of Kidney Carpal Tunnel Syndrome, Left Tendonitis of Shoulder, Right Rotator Cuff Tear Smoking History Hypertension Atrial Fibrillation (Hcc) Panlobular Emphysema (Hcc) Generalized Arthritis History of Dvt (Deep Vein Thrombosis) S/P Cervical Spinal Fusion Bcc (Basal Cell Carcinoma of Skin) Heart Murmur Chf (Congestive Heart Failure) (Hcc) Vaginal Enterocele Due to Incomplete Uterovaginal Prolapse COVID-19 Immunization Status Overdue - COVID-19 VACCINE (4 - Booster for Moderna series) Overdue since 07/21/2021 03/23/2021 Imm Admin: COVID-19 vaccine, full dose (MODERNA) 06/13/2020 Imm Admin: COVID-19 vaccine, full dose (MODERNA) 05/16/2020 Imm Admin: COVID-19 vaccine, full dose (MODERNA) CHIEF COMPLAINT: Pre-op exam HPI: LM is a 76 yo seen for PAC due to scheduled above surgery because of a vaginal prolapse. 09/21/2021 Dr. Rosa Johnson Celsa Delgado is a 76 year old female who presents for concerns regarding vaginal prolapse. Patient was seen last year and is planning for surgery but had to use FMLA for another cause. Patient states that the prolapse is getting worse she constantly feels like she is sitting on something and has pain in pressure. Patient states she is having a difficult time taking her bladder completely. She has previously tried a pessary without success. Patient was given the option to see urogynecology last year but declined at that time. Patient states no other concerns at this time. OB History T1 L1 SAB1 IAB0 Ectopic0 Multiple0 Live Births0 REVIEW OF SYSTEMS: General: No weight loss, malaise or fevers. Neurological: No history of TIA's, stroke, POLITICAL SCIENCE INSTRUCTOR tumor, impaired sensorium, hemiplegia, paraplegia or quadraplegia. No neurological symptoms or problems. Respiratory: +former smoker 2ppd/30 years Positive for: COPD (no rx). Negative for: asthma, pneumonia within 6 weeks and tobacco use. Cardiovascular: Positive for: anticoagulation therapy (Eliquis, following [facility]), atrial fibrillation (controlled on rx), CHF (on rx), DVT/PE (LE, >30 years ago, tx with AC at the time) and hypertension (on rx) Negative for: arrhythmia, CAD, chest pain, congenital heart defect, hyperlipidemia, recent [place], murmur/valvular heart disease, open heart surgery and valve surgery. GI: Positive for: dysphagia (difficulty with pills) and GERD (on rx) Negative for: abdominal pain, hepatitis, irritable bowel syndrome, inflammatory bowel disease, liver disease, nausea, pancreatitis, vomiting and ETOH >2 drinks/day. : Positive for: nephrolithiasis (hx). Negative for: urinary incontinence, renal failure and urinary tract infection. 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 Negative for: vaginal bleeding and vaginal discharge. Endocrine: No history of diabetes. Has not taken steroids within the past 30 days. No history of endocrinological symptoms or problems. Hematology: Positive for: bruises/bleeds easily and chronic anti-coagulation/platelet meds. Patient is on anti-coagulation/platelet medication(s): DOAC. Negative for: anemia and transfusion of at least 4 units within 72 hours prior to surgery. Oncology: Hx BCC s/p excision Psych: No history of psychiatric symptoms or problems. Musculoskeletal: +h/o cervical fusion Positive for: back pain and joint pain (following pain management). Skin: Negative for lesions, rash and itching. PAST MEDICAL HISTORY Diagnosis Date Anxiety Atrial fibrillation (HCC) s/p ablation 07/2015 Backache, unspecified Carpal tunnel syndrome, bilateral DVT (deep venous thrombosis) (HCC) remote Esophageal reflux History of cardioversion 10/31/2018 History of DVT (deep vein thrombosis) 11/10/2015 HTN (hypertension) Irritable bowel syndrome Left carotid bruit 09/14/2018 noted by cardiology Left ventricular systolic dysfunction 11/08/2016 PONV (postoperative nausea and vomiting) S/P cervical spinal fusion Scoliosis PAST SURGICAL HISTORY Procedure Laterality Date CHOLECYSTECTOMY 10/2016 COLONOSCOPY FLX DX W/COLLJ SPEC WHEN PFRMD 10/06/13 Colonoscopy COLONOSCOPY FLX DX W/COLLJ SPEC WHEN PFRMD 11/22/2015 Colonoscopy CONIZATION OF CERVIX, LEEP CURETTAGE EGD TRANSORAL BIOPSY SINGLE/MULTIPLE 02/08/11 ESOPHAGOGASTRODUODENOSCOPY TRANSORAL DIAGNOSTIC 10/06/13 EGD ESOPHAGOGASTRODUODENOSCOPY TRANSORAL DIAGNOSTIC 11/22/2015 EGD ESOPHAGOGASTRODUODENOSCOPY TRANSORAL DIAGNOSTIC 02/28/2016 EGD LIG/TRNSXJ FLP TUBE ABDL/VAG APPR UNI/BI Tubal ligation NEUROPLASTY &/TRANSPOS MEDIAN NRV CARPAL TUNNE 02/14/12 Carpal tunnel decomp - right OOPHORECTOMY PARTIAL/TOTAL UNI/BI 07/17/2010 Oophorectomy - left Dr. Manuel Hoover - Dr. Alessio Dahl PAST SURGICAL HISTORY OF NECK SURGERY, anterior fusion PAST SURGICAL HISTORY OF Face lift PAST SURGICAL HISTORY OF back surgery PAST SURGICAL HISTORY OF bilat foot surgey, bunionectomy PAST SURGICAL HISTORY OF benign tumor removed from right breast PAST SURGICAL HISTORY OF 03/2011 B/L cataract surgery with implants- Dr Jacob Aguilar at [facility] PAST SURGICAL HISTORY OF 07/27/15 cryo ablation, cardiac RPR UMBILICAL HRNA 5 YRS/> REDUCIBLE 07/17/2010 Hernia repair, umbilical >5yr [facility] Dr Manuel Cebul FAMILY HISTORY Problem Relation Age of Onset Hypertension Mother Stroke Mother Coronary Artery Disease Father other (UMA'S DISEASE) Brother Liver dse, cirrhosis Social History Tobacco Use Smoking status: Former Packs/day: 2.00 Years: 35.00 Pack years: 70.00 Types: Cigarettes Quit date: 11/09/2005 Years since quittin.1 Smokeless tobacco: Never Tobacco comments: Stopped smoking 12/2005 Vaping Use Vaping Use: Never used Substance Use Topics Alcohol use: Not Currently Drug use: No Prior to Admission medications as of 12/24/21 0802 Medication Sig Last Dose Taking omeprazole (PRILOSEC) 40 mg capsule Take 1 capsule by mouth twice daily. Taking Yes diclofenac, EC, (VOLTAREN) 75 mg EC tablet Can use every other day for pain/inflammation. Take with food. Taking Yes cyclobenzaprine (FLEXERIL) 10 mg tablet Take 1 tablet by mouth three times daily as needed for muscle spasm. Taking Yes apixaban (ELIQUIS) 5 mg tab(s) Take by mouth twice daily. Taking Yes Bifidobacterium infantis (ALIGN) 10.5 mg (10 million cell) chew Take 1 tablet by mouth once daily. Taking Yes furosemide (LASIX) 40 mg tablet Take 1 tablet by mouth once daily. Taking Yes metoprolol succinate ER (TOPROL XL) 50 mg 24 hr tablet Take 0.5 tablets by mouth once daily. Taking Yes potassium chloride ER (K-DUR, KLOR-CON) 20 mEq tablet Take 1 tablet by mouth twice daily. Taking Yes melatonin 3 mg ODT Take 1 tablet by mouth daily at bedtime. Taking Yes flecainide (TAMBOCOR) 100 mg tablet Take 100 mg by mouth twice daily. Taking Yes MULTIVITAMIN WITH MINERALS (ONE-A-DAY 50 PLUS ORAL) Take by mouth. Taking Yes CALCIUM CARBONATE/VITAMIN D3 (VITAMIN D-3 ORAL) Take 1,000 mg by mouth five times daily. Taking Yes [id number] ORAL Take by mouth. Taking Yes No medication comments found. ALLERGIES Allergen Reactions Cardizem [Diltiazem* Swelling Codeine Vomiting Ringing in Ears. Entex [Phenylephrin* Rash Etodolac Other: See Comments Heart palpitations Meloxicam Other: See Comments Heart palpitations Naproxen Swelling Possible allergy? Pt relates to naproxen Surgical Tape Adhes* Rash Trazodone Other: See Comments rapid hear beat Zantac [Ranitidine * Rash, Swelling Objective PHYSICAL EXAM: General: alert and oriented (x3) and healthy appearance. Pertinent negatives noted - not distressed. Skin: normal color, no rash or lesions. HEENT: EOM intact, pupils equal round and carotid bruit. Carotid bruit; laterality bilateral. Cardiovascular: Pulse characterized as regular.Positive for murmur. Respiratory: normal breath sounds, no wheezes or crackles. No chest wall deformity or tenderness. Abdomen: soft. Pertinent negatives noted - not tender. Extremities: Positive for edema (2+ BL LE edema). Neurological: normal cognition and motor skills. Gait normal. No weakness or sensory deficit. PAIN ASSESSMENT: VITALS: BP 126/64 Pulse 58 Temp (Src) 97.1 (Temporal) Resp 16 Ht 5' 1 (1.55m) Wt 134 lb (60.8kg) SpO2 97% BMI 25.33 kg/(m^2). Diagnostic tests reviewed for today's visit: Lab Value Units Date High Low HB 11.6 g/dL 09/06/2021 15.5 11.5 HCT 37.1 % 09/06/2021 46.0 36.0 WBC 6.74 k/uL 09/06/2021 11.00 3.70 PLT 312 k/uL 09/06/2021 400 150 NA 144 mmol/L 09/06/2021 144 136 K 4.1 mmol/L 09/06/2021 5.1 3.7 GLUC 146 mg/dL 09/06/2021 99 74 BUN 37 mg/dL 09/06/2021 21 7 CREAT 0.80 mg/dL 09/06/2021 0.96 0.58 PTSEC No results within date range. INR No results within date range. APTT No results within date range. ALT No results within date range. AST No results within date range. TBILI No results within date range. TSH No results within date range. Lab Value Units Date High Low HCGQT No results within date range. UHCG No results within date range. HCG, BODY* No results within date range. Lab Value Units Date High Low ABORHD No results within date range. ABSCREEN No results within date range. Hemoglobin A1C (%) Date Value 10/15/2017 5.5 No results found for this or any previous visit (from the past 8760 hour(s)). No results found for this or any previous visit (from the past 98275 hour(s)). Assessment Atrial fibrillation (HCC) Assessment: hx cardioversions x2 and ablation, controlled on rx, daily Eliquis, following [facility], pt states had a cardiac clearance appt this previoius Friday12/21/2021, records requested Moses's esophagus Assessment: GERD, controlled on rx History of DVT (deep vein thrombosis) Assessment: LE >30 years ago, tx with AC Hypertension Assessment: controlled on rx Last 14 BP Last 14 Encounter BP Readings: Date: BP: 12/24/2021 126/64 12/03/2021 116/68 10/10/2021 130/68 09/21/2021 136/68 07/10/2021 128/68 05/02/2021 139/65 03/07/2021 150/82 01/16/2021 130/60 01/08/2021 124/78 01/05/2021 126/60 06/19/2020 150/56 06/05/2020 138/72 04/02/2020 118/72 12/27/2019 132/74 Panlobular emphysema (HCC) Assessment: no daily inhaler, no recent PFT's, lungs CTA no exam, former smoker 2ppd/30 years S/P cervical spinal fusion Assessment: h/o, limited CROM Generalized arthritis Assessment: multiple joints, following pain management, receiving injections BCC (basal cell carcinoma of skin) Assessment: s/p BCC Heart murmur Assessment: on exam, cardiac records requested, pt denies any valve surgeries CHF (congestive heart failure) (HCC) Assessment: on rx, following [facility], records requested Mueller Activity Status Index: METS: Climb a flight of stairs or walk up a hill (5.50 METs) DASI Score: 5.5 Patient denies any chest pain or undue shortness of breath with the above physical activity. Clinical Frailty Scale: 4. Apparently vulnerable STOP-Bang Score: Snores loudly Has or is being treated for high blood pressure Patient over 50 years old Denies feeling tired, fatigued, or sleepy during the daytime Has not been observed to stop breathing or choking/gasping during sleep BMI less than or equal to 35 kg/m^2 Does not have a large neck Non-male patient STOP-Bang Score: 3 [id number] Score: Age: 65-74 Sex: female CHF history: Yes Hypertension history: Yes Stroke/TIA/thromboembolism history: Yes Vascular disease history: No Diabetes history: No [id number] Score: 6 ARISCAT Score: Age: 51-80 Preoperative SpO2: >=96% Respiratory infection in the last month: No Preoperative anemia: No Surgical incision: peripheral Duration of surgery: <2 hrs Emergency procedure: No ARISCAT Score: 3 ASA Class: 3 ANESTHESIA FINDINGS: Intubation History: No history of difficult intubation Significant Anesthesia Considerations: potential postop nausea/vomiting Airway History: No history of difficult airway I - PHYSICAL EVALUATION AIRWAYTracheostomy tube not present Mallampati: II. TM distance: >3 FB. Neck ROM: limited flexion and extension. Mouth opening: adequate. Short neck: no. Thick neck: no DENTAL Dentures, upper: complete. Dentures, lower: complete. II - ANESTHESIA PLAN ASA Score: 3 Anesthetic Plan: other Anesthetic plan additional comments: *PACC/TCI - anesthesia choice. Informed Consent Anesthetic risks, benefits, alternatives, personnel and consent discussed: yes. Patient / Responsible Green Party agrees to proceed: yes Patient / Surrogate agrees to blood products: Yes Prepared for Surgery: optimally prepared for surgery, pending [see comment]. Labs Cardiac clearance and records requested from steward/stewardess second class office, AC letter faxed CONSULTS: Patient does not require consults for optimization at this time Planned Anesthetic: other anesthesia choice The Following Tests/Procedures Have Been Initiated: No orders of the defined types were placed in this encounter. Instructions Given to Patient: Instructions located in the after visit summary. Patient given verbal and written preop instructions and voices comprehension and compliance. SIGNATURE: Trinidad Soto APRN.CNP PATIENT NAME: Elizabeth Delgado DATE: December 24, 2021 TIME: 8:25 AM PAGER/CONTACT #: documented in this encounter [facility] 12-24-2021 Instructions Trinidad Soto APRN.CNP - 12/24/2021 8:24 AM EDT PATIENT PREOPERATIVE INSTRUCTIONS Qiana Pizarro MD has scheduled you for your procedure at this surgery center: [facility] [place] [facility] Scheduling Office: [phone] --[address] [place] [address]. Please read below carefully for your personalized instructions. Dietary Restrictions: - No solid food after midnight. - You may have 12 ounces of clear liquids (water, clear juices such as apple juice or gatorade, carbonated beverages, clear tea, black coffee, jello) until 2 hours before scheduled arrival at facility. Medications: Unless instructed differently below, stay on all of your medications until your surgery. Approved medications to take the morning of surgery with a sip of water: Flecainide, Metoprolol, Omeprazole, Potassium Chloride Do not take Lasix day of surgery If you start any new medications after today's visit, please contact the surgeon's office. Blood Thinning Medications: - Stop NSAIDS (Ibuprofen, Advil, Aleve, Motrin, Celebrex, Mobic, etc.) 7 days before surgery, as directed by your surgeon. - Stop Aspirin 7 days before surgery, as directed by your surgeon. - Stop Vitamin E, ALL multi-vitamins, herbals and dietary supplements 7 days before surgery. - You may take Tylenol (Acetaminophen) or any of your pain medications that do not contain aspirin or NSAIDS as needed. - STOP ELIQUIS 72 HOURS PRIOR TO SURGERY Important Reminders: - If you use CPAP/BIPAP, bring the machine with you to the surgery center. - If you are prescribed inhalers for breathing, continue using them. - Candy, mints, and tobacco products are NOT permitted the morning of surgery. - Hearing aids, dentures and glasses may be worn the morning of surgery. - NO jewelry, body piercings, makeup, hairpins or contacts are to be worn the day of surgery. If you develop symptoms such as a fever, cold, or flu, or have other changes to your health within TWO DAYS of scheduled surgery or the morning of surgery, please contact the surgery center above. Personal Belongings: -Please have photo ID and insurance cards. -If you do not have a copy of advance directives on file with us, please bring a copy with you on the day of surgery. - Leave ALL valuables and money at home or with family members. For Outpatient Procedures: - YOU MUST HAVE A RESPONSIBLE ROLLS BAKER TAKE YOU HOME. A SCREEN MACHINE OPERATOR OR SUPERVISOR TWISTING DEPARTMENT CANNOT BE MADE A RESPONSIBLE ROLLS BAKER. - We recommend that a responsible person stays with you overnight to take care of you. - You cannot stay in a hotel alone after outpatient surgery. You will not be permitted to have your surgery, if you do not have someone to take care of you. Arrival Time for Surgery: - To obtain your arrival time for surgery, call your physician's office the day before your surgery. - If your surgery is scheduled for Friday, call the Friday before. Your surgeon s outpatient scheduler will tell you what time to call the office. - If you have not reached the departmental outpatient scheduler by 5 P.M., call [phone] after 5 P.M. the day before your surgery. Please be aware that emergency situations arise, which may delay or change your surgical time. If this happens, we will notify you as soon as possible and regret any inconvenience. If you already have an Advance Directive, please fax a copy to [phone] or email to for it to be added to your chart. If you do not have an Advance Directive, you can find the appropriate form and more information at [email or web address]. We recommend that you complete the Advance Directive form found on the website and bring it with you the day of your surgery. It can be witnessed and scanned into your chart that day. Trinidad Soto APRN.ANITHA documented in this encounter [facility] 12-11-2021 Miscellaneous Notes Letter written requesting cardiac clearance and anticoagulation recommendations sent to Dr. Ibarra's office at fax# below. Confirmation received. Called Dr. Ibarra's office and spoke with nurse. Patient has an appointment scheduled with Dr. Ibarra for cardiac clearance for surgery on 12/21 and his office needs Dr. Pizarro to send over a request for cardiology clearance stating the name and date of procedure and that we are also seeking recommendation on whether patient can hold anti-coagulant therapy for 3 days prior to her surgery. The patient's steward/stewardess second class's contact information is: Dr. Ibarra with [facility] Routing to Dr. Pizarro to advise. Patient has appointment and needs forms to be cleared for surgery faxed to office of Dr. Ibarra [facility]. documented in this encounter [facility] 12-07-2021 History of Present illness Narrative TeleHealth - Follow-up Visit I have discussed the risks, benefits, and limitations of receiving care virtually with the patient. The patient expresses understanding and is willing to move forward. Elizabeth Delgado is a 76 year old (FAVD x 1) female s/p cholecystectomy (2016), umbilical hernia repair (2010), left oophorectomy (2010), tubal ligation with A-fib (on Eliquis), hx of DVT who presents for preoperative discussion for hysteropexy, possible cystocele repair, possible rectocele repair, possible enterocele repair, perineorrhaphy, cystoscopy. History: Patient has bothersome daily bulge symptoms Patient has failed pessary trial Patient denies any DIRK with pessary Frequency: DTF every 1-2 hours Nocturia: NTF 3-4 x per night Urinary urgency: daily Urge incontinence: occasional Stress incontinence: denies Patient has bothersome stool trapping symptoms and needs to splint to have a BM not need to splint or have stool trapping symptoms Patient is not currently sexually active, haas not have a partner currently Physical exam: Pelvic: External Genitalia: No lesions or other abnormalities Vagina: Ant Wall - Cystocele Stage I ; Post Wall - Rectocele Stage III / IV, Enterocele Present - Stage III / IV Cervix / [place] - Normal support POP-Q: Prolapse Noted: Yes Aa = -1.5 Ba = -1.5 C = -8.0 gh = 3.0 pb = 4.0 tvl = 10.0 Ap = +2.0 Bp = +3.0 D = -9.0 Vaginal epithelium: Atrophic Cervix: Normal, Flush with vaginal wall Urethra: Normal, Supine cough stress test negative TVUS (12/28/2021): RESULT: Uterus size: 4.1 x 1.5 x 2.4 cm -Orientation: Retroverted -Myometrium: Normal sonographic appearance. -Endometrial echo complex: 0.2 cm. Trace fluid fundal endometrial canal. -Cervix: normal Neither ovary is demonstrated. Pelvis free fluid: None. IMPRESSION: Retroverted uterus. No fibroids evident. Trace fluid in endometrial canal. Meniscal setting. A secondary to cervical stenosis. Nonvisualization of ovaries UDS reviewed (Pt had UDS at Dr. Awan): -Filling cystometrics: First sensation 146 ml, first desire 161 ml, strong desire 251 mL, Bladder capacity 300mL, 286mL with LPP of 139 an a Pves pressure of 169 cmH2O -Voiding cystometrics: Voided 294mL with a Max Flow rate 12 ml/sec, and Pmax 67 cm H2O, Average flow rate 6 ml/sec. PVR 4ml UDS Assessment: Filling and Storage: Bladder sensation is normal without bladder pain, without urgency and with normal detrusor function. Bladder capacity is normal. There is incompetent urethral closure and evidence of urodynamic stress incontinence at maximum bladder capacity. Voiding: Overall voiding function is normal. Urine flow is continuous with a fluctuating flow curve. Detrusor function during voiding is normal with a normal postvoid residual. Electromyography: Provocative maneuvers produced appropriate changes in waveforms. The EMG shows increased EMG activity with increased intraabdominal pressure. There was a decrease in the EMG activity during voiding consistent with normal function of the pelvic floor. Discussed sling placement at the time of pelvic organ prolapse repair. We discussed that the purpose of urodynamic testing is to predict whether or not she will have new onset stress urinary incontinence after prolapse repair. We reviewed that this test is not perfect to predict urine leakage in the future. Patient is not bothered by urine leakage and she only had leakage at maximum bladder capacity. Patient would prefer to defer MUS at the time of surgery Consent discussion: Surgical risks were discussed. Patient understands risks and desires to proceed, consent signed. The patient was offered a surgery/procedure at a [facility]. The surgeon/proceduralist and patient have discussed in detail the risk of exposure to and/or potential harm posed by the COVID-19 virus with having a surgery/procedure at this time versus the risk of delaying the surgery/procedure. It is not possible to know either the risk of delaying the surgery or procedure or chance of getting an infection with perfect accuracy, but a joint decision was made between the patient and the surgeon/proceduralist to proceed at this time with the scheduled surgery/procedure as indicated on the consent form. Risks, benefits and alternatives to surgical management were discussed including but not limited to: bleeding, infection (most commonly UTI), pain, recurrence or non-resolution of symptoms (15% if incontinence procedure, 20% for upper skagit tissue repair, 5-15% if sacrocolpopexy), urinary retention (1-3% requiring intervention if incontinence procedure), complications from mesh if placed (3% if midurethral sling, 5% if sacrocolpopexy), vaginal scarring causing dyspareunia or pain, possible exploratory laparotomy, risk of prolonged Smiley catheterization, damage to surrounding organs, anesthetic complications, postoperative complications, or even the unlikely risk of Pertinent surgical history: Cholecystectomy 10/2016 Conization of cervix Bilateral tubal ligation Oophorectomy and umbilical hernia repair 2010 Pain control: Motrin and tylenol ATC, oxycodone #5 for BTP Other Medications Colace 100mg BID Miralax daiily Send prescriptions to [facility] on day of surgery Labs: H/H: 12.4/37.6 (12/24/2021) Cr: 0.69 (12/24/2021) Voiding plan: Plan for voiding trial after surgery. Pt counseled that if she fails trial of void, she would go home with smiley catheter and return in 2-3 days for another voiding trial. Other concerns: Had a long discussion with patient regarding surgical plan. When she presented to office, had previously been counseled for a hysterectomy and sacrocolpopexy, Counseled pt that no uterine prolapse or apical prolapse noted on exam and pt has large enterocele and rectocele. Given that she is on Eliquis for A-fib and has had multiple abdominal surgeries, would recommend least invasive approach with vaginal upper skagit tissue repair. Patient understands that there is a risk of recurrence and reoperation and could plan to perform mesh sacrocolpopexy in the future. Also discussed that if she ever needed a robotic sacrocolpopexy, would order defecography, anorectal manometry and refer to colorectal surgery to discuss possible co-case with ventral rectopexy LOS: Same day discharge Surgical plan: Hysteropexy, possible cystocele repair, possible rectocele repair, possible enterocele repair, perineorrhaphy, cystoscopy. This was a Telephone visit, including two-way audio communication, in lieu of an in-person visit. I spent a total of 30 minutes on the date of the service which included completing clinical documentation, obtaining and/or reviewing separately obtained history, counseling and educating the patient/family/caregiver, and communicating with other HCPs (not separately reported). documented in this encounter [facility] 10-17-2021 Miscellaneous Notes Letter printed and taken to Medical Records. Patient returned call. She says she will go back to work on 10/16 and will need a printed copy of the first letter Gwendolyn wrote so she can take it to her employer. She can pick it up in Medical Records Dept. Would like to pick it up tomorrow. Olga Lidia Lima RN Called and left a voicemail for the Patient to call back and ask for a nurse to receive the providers message. Asha Ortiz RN I absolutely can, but when does she need the letter dated to start? With her appointment on 10/10 or earlier? Let her know once I have this information, I will fill it out and it will be in her mychart. Thank you Gwendolyn Ballard APRN.ANITHA Pt called and is notified of providers message. Pt reports she wasn't suppose to go back to work until 10/17/21. Pt asking if provider could write letter for this date. Asha Ortiz RN I have reviewed Dr. Hong note and put a letter in her chart, please let patient know this is completed and if pain does not improve I would recommend getting re-evaluated. Thank you Gwendolyn Ballard APRN.ANITHA Patient is needing a letter for today. She is having pain in her hip today and not able to go to work.Pt is requesting a letter be put in her my chart so that she may give to her employer. Felicitas Prince LPN documented in this encounter [facility] 09-21-2021 History of Present illness Narrative Elizabeth Delgado is a 76 year old female who presents for concerns regarding vaginal prolapse. Patient was seen last year and is planning for surgery but had to use FMLA for another cause. Patient states that the prolapse is getting worse she constantly feels like she is sitting on something and has pain in pressure. Patient states she is having a difficult time taking her bladder completely. She has previously tried a pessary without success. Patient was given the option to see urogynecology last year but declined at that time. Patient states no other concerns at this time. 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 History Comments: Sexual Activity: Never; Male; Tubal ligation Contraception: Surgical PAST MEDICAL HISTORY Diagnosis Date Anxiety Atrial fibrillation (HCC) s/p ablation 07/2015 Backache, unspecified Carpal tunnel syndrome, bilateral DVT (deep venous thrombosis) ([facility]) remote Esophageal reflux History of cardioversion 10/31/2018 History of DVT (deep vein thrombosis) 11/10/2015 HTN (hypertension) Irritable bowel syndrome Left carotid bruit 09/14/2018 noted by cardiology Left ventricular systolic dysfunction 11/08/2016 PONV (postoperative nausea and vomiting) S/P cervical spinal fusion Scoliosis PAST SURGICAL HISTORY Procedure Laterality Date CHOLECYSTECTOMY 10/2016 COLONOSCOPY FLX DX W/COLLJ SPEC WHEN PFRMD 10/06/13 Colonoscopy COLONOSCOPY FLX DX W/COLLJ SPEC WHEN PFRMD 11/22/2015 Colonoscopy CONIZATION OF CERVIX, LEEP CURETTAGE EGD TRANSORAL BIOPSY SINGLE/MULTIPLE 02/08/11 ESOPHAGOGASTRODUODENOSCOPY TRANSORAL DIAGNOSTIC 10/06/13 EGD ESOPHAGOGASTRODUODENOSCOPY TRANSORAL DIAGNOSTIC 11/22/2015 EGD ESOPHAGOGASTRODUODENOSCOPY TRANSORAL DIAGNOSTIC 02/28/2016 EGD LIG/TRNSXJ FLP TUBE ABDL/VAG APPR UNI/BI Tubal ligation NEUROPLASTY &/TRANSPOS MEDIAN NRV CARPAL TUNNE 02/14/12 Carpal tunnel decomp - right OOPHORECTOMY PARTIAL/TOTAL UNI/BI 07/17/2010 Oophorectomy - left Dr. Manuel Hoover - Dr. Alessio Dahl PAST SURGICAL HISTORY OF NECK SURGERY, anterior fusion PAST SURGICAL HISTORY OF Face lift PAST SURGICAL HISTORY OF back surgery PAST SURGICAL HISTORY OF bilat foot surgey, bunionectomy PAST SURGICAL HISTORY OF benign tumor removed from right breast PAST SURGICAL HISTORY OF 03/2011 B/L cataract surgery with implants- Dr Jacob Aguilar at [facility] PAST SURGICAL HISTORY OF 07/27/15 cryo ablation, cardiac RPR UMBILICAL HRNA 5 YRS/> REDUCIBLE 07/17/2010 Hernia repair, umbilical >5yr [facility] Dr Manuel Hoover FAMILY HISTORY Problem Relation Age of Onset Hypertension Mother Stroke Mother Coronary Artery Disease Father other (UMA'S DISEASE) Brother Liver dse, cirrhosis Social History Tobacco Use Smoking status: Former Smoker Packs/day: 2.00 Years: 35.00 Pack years: 70.00 Types: Cigarettes Quit date: 11/09/2005 Years since quittin.8 Smokeless tobacco: Never Used Tobacco comment: Stopped smoking 12/2005 Vaping Use Vaping Use: Never used Substance Use Topics Alcohol use: Yes Alcohol/week: 0.0 - 15.0 standard drinks Comment: mixed drink in p.m. Drug use: No Current Outpatient Medications Medication Sig diclofenac, EC, (VOLTAREN) 75 mg EC tablet Can use every other day for pain/inflammation. Take with food. pantoprazole DR (PROTONIX) 40 mg tablet Take 1 tablet by mouth daily before breakfast. Take on empty stomach, 1/2 hr before meal. cyclobenzaprine (FLEXERIL) 10 mg tablet Take 1 tablet by mouth three times daily as needed for muscle spasm. apixaban (ELIQUIS) 5 mg tab(s) Take by mouth twice daily. omeprazole (PRILOSEC) 20 mg capsule Take 1 capsule by mouth daily before breakfast. Bifidobacterium infantis (ALIGN) 10.5 mg (10 million cell) chew Take 1 tablet by mouth once daily. furosemide (LASIX) 40 mg tablet Take 1 tablet by mouth once daily. metoprolol succinate ER (TOPROL XL) 50 mg 24 hr tablet Take 0.5 tablets by mouth once daily. potassium chloride ER (K-DUR, KLOR-CON) 20 mEq tablet Take 1 tablet by mouth twice daily. melatonin 3 mg ODT Take 1 tablet by mouth daily at bedtime. flecainide (TAMBOCOR) 100 mg tablet Take 100 mg by mouth twice daily. MULTIVITAMIN WITH MINERALS (ONE-A-DAY 50 PLUS ORAL) Take by mouth. CALCIUM CARBONATE/VITAMIN D3 (VITAMIN D-3 ORAL) Take 1,000 mg by mouth five times daily. [id number] ORAL Take by mouth. No current facility-administered medications for this visit. Allergies As of Date: 09/21/2021 Allergen Noted Reaction CARDIZEM [DILTIAZEM HCL] 01/18/2015 Swelling CODEINE 01/21/2006 Vomiting ENTEX [PHENYLEPHRINE-GUAIFENESIN] 03/06/2007 Rash ETODOLAC 07/06/2012 Other: See Comments MELOXICAM 05/25/2012 Other: See Comments NAPROXEN 01/29/2011 Swelling SURGICAL TAPE ADHESIVES [OTHER] 08/31/2008 Rash TRAZODONE 08/19/2014 Other: See Comments ZANTAC [RANITIDINE HCL] 05/29/2016 Rash and Swelling Fully Assessed 09/21/2021 REVIEW OF SYSTEMS Abdomen: no pain Bladder: no dysuria, feels that she can't empty completley . Expanded ROS: fever Allergies and current medication updated:Yes EXAM: BP 136/68 Wt 131 lb (59.4kg) GENERAL: pleasant, female in no apparent distress HEENT: Normocephalic and atraumatic NECK: full range of motion DERMATOLOGY: Normal, without lesions, non-icteric and non-hirsute ABDOMEN: soft, non-tender and no masses PELVIC: external genitalia normal, normal Bartholin's glands, urethra, [place]'s glands, no vulvar lesions, normal appearing perineal body and perianal region, narrow vagina- cervix flush with vagina. On exam it appears enterocele is protruding past hymenal ring. Cystocele/rectocele grade 2 BIMANUAL: uterus normal size, shape and consistency, no adnexal masses and non-tender NEURO: alert and oriented x3,exam grossly non-focal EXTREMITIES: normal ASSESSMENT AND PLAN: Encounter Diagnosis ICD-10-CM 1. 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 N81.2 CONSULT TO FEMALE UROLOGY/URO GYNECOLOGY 2. Discussed with the patient that hysterectomy would be difficult vaginally due to the narrow introitus. My recommendation would be that she see urogynecology for possible laparoscopic approach for hysterectomy and repair. Patient is agreeable to this. I spent a total of 20 minutes on the date of the service which included preparing to see the patient, [id number] patient care, completing clinical documentation, obtaining and/or reviewing separately obtained history, performing a medically appropriate examination and counseling and educating the patient/family/caregiver Lindsay Lee MD documented in this encounter [facility] 09-07-2021 Miscellaneous Notes Patient notified. She had just left Pain Management having injection in the neck and in office they gave her some honey grahams to eat. Please let patient know that lab work overall is normal. Her blood sugar was elevated, was this a fasting sample? If it was a fasting sample, we need to do a HgbA1c to further evaluate for diabetes. 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 Takes a probiotic once. Last Assessment & Plan: She has flare ups once in a while. Pain in the abdomen, along wit cramping, and bloating. Takes a probiotic once. Drinks raw beats spinach, protein powder, strawberries, almond mild and drinks it. Her constipation was resolved with it. 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 Takes a probiotic once. Last Assessment & Plan: She has flare ups once in a while. Pain in the abdomen, along wit cramping, and bloating. Takes a probiotic once. Drinks raw beats spinach, protein powder, strawberries, almond mild and drinks it. Her constipation was resolved with it. 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 Takes a probiotic once. Last Assessment & Plan: She has flare ups once in a while. Pain in the abdomen, along wit cramping, and bloating. Takes a probiotic once. Drinks raw beats spinach, protein powder, strawberries, almond mild and drinks it. Her constipation was resolved with it. 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 Takes a probiotic once. Last Assessment & Plan: She has flare ups once in a while. Pain in the abdomen, along wit cramping, and bloating. Takes a probiotic once. Drinks raw beats spinach, protein powder, strawberries, almond mild and drinks it. Her constipation was resolved with it. 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 Takes a probiotic once. Last Assessment & Plan: She has flare ups once in a while. Pain in the abdomen, along wit cramping, and bloating. Takes a probiotic once. Drinks raw beats spinach, protein powder, strawberries, almond mild and drinks it. Her constipation was resolved with it. 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 Takes a probiotic once. Last Assessment & Plan: She has flare ups once in a while. Pain in the abdomen, along wit cramping, and bloating. Takes a probiotic once. Drinks raw beats spinach, protein powder, strawberries, almond mild and drinks it. Her constipation was resolved with it. 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 Takes a probiotic once. Last Assessment & Plan: She has flare ups once in a while. Pain in the abdomen, along wit cramping, and bloating. Takes a probiotic once. Drinks raw beats spinach, protein powder, strawberries, almond mild and drinks it. Her constipation was resolved with it. 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 Takes a probiotic once. Last Assessment & Plan: She has flare ups once in a while. Pain in the abdomen, along wit cramping, and bloating. Takes a probiotic once. Drinks raw beats spinach, protein powder, strawberries, almond mild and drinks it. Her constipation was resolved with it. 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 Takes a probiotic once. Last Assessment & Plan: She has flare ups once in a while. Pain in the abdomen, along wit cramping, and bloating. Takes a probiotic once. Drinks raw beats spinach, protein powder, strawberries, almond mild and drinks it. Her constipation was resolved with it. 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 Takes a probiotic once. Last Assessment & Plan: She has flare ups once in a while. Pain in the abdomen, along wit cramping, and bloating. Takes a probiotic once. Drinks raw beats spinach, protein powder, strawberries, almond mild and drinks it. Her constipation was resolved with it. 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 Takes a probiotic once. Last Assessment & Plan: She has flare ups once in a while. Pain in the abdomen, along wit cramping, and bloating. Takes a probiotic once. Drinks raw beats spinach, protein powder, strawberries, almond mild and drinks it. Her constipation was resolved with it. 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 Takes a probiotic once. Last Assessment & Plan: She has flare ups once in a while. Pain in the abdomen, along wit cramping, and bloating. Takes a probiotic once. Drinks raw beats spinach, protein powder, strawberries, almond mild and drinks it. Her constipation was resolved with it. 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 Takes a probiotic once. Last Assessment & Plan: She has flare ups once in a while. Pain in the abdomen, along wit cramping, and bloating. Takes a probiotic once. Drinks raw beats spinach, protein powder, strawberries, almond mild and drinks it. Her constipation was resolved with it. 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 Takes a probiotic once. Last Assessment & Plan: She has flare ups once in a while. Pain in the abdomen, along wit cramping, and bloating. Takes a probiotic once. Drinks raw beats spinach, protein powder, strawberries, almond mild and drinks it. Her constipation was resolved with it. 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 Takes a probiotic once. Last Assessment & Plan: She has flare ups once in a while. Pain in the abdomen, along wit cramping, and bloating. Takes a probiotic once. Drinks raw beats spinach, protein powder, strawberries, almond mild and drinks it. Her constipation was resolved with it. 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 Takes a probiotic once. Last Assessment & Plan: She has flare ups once in a while. Pain in the abdomen, along wit cramping, and bloating. Takes a probiotic once. Drinks raw beats spinach, protein powder, strawberries, almond mild and drinks it. Her constipation was resolved with it. 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 Takes a probiotic once. Last Assessment & Plan: She has flare ups once in a while. Pain in the abdomen, along wit cramping, and bloating. Takes a probiotic once. Drinks raw beats spinach, protein powder, strawberries, almond mild and drinks it. Her constipation was resolved with it. 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 Takes a probiotic once. Last Assessment & Plan: She has flare ups once in a while. Pain in the abdomen, along wit cramping, and bloating. Takes a probiotic once. Drinks raw beats spinach, protein powder, strawberries, almond mild and drinks it. Her constipation was resolved with it. 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 Takes a probiotic once. Last Assessment & Plan: She has flare ups once in a while. Pain in the abdomen, along wit cramping, and bloating. Takes a probiotic once. Drinks raw beats spinach, protein powder, strawberries, almond mild and drinks it. Her constipation was resolved with it. 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 Takes a probiotic once. Last Assessment & Plan: She has flare ups once in a while. Pain in the abdomen, along wit cramping, and bloating. Takes a probiotic once. Drinks raw beats spinach, protein powder, strawberries, almond mild and drinks it. Her constipation was resolved with it. 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 Takes a probiotic once. Last Assessment & Plan: She has flare ups once in a while. Pain in the abdomen, along wit cramping, and bloating. Takes a probiotic once. Drinks raw beats spinach, protein powder, strawberries, almond mild and drinks it. Her constipation was resolved with it. Tobacco use disorder 07/16/2006 01/10/2016 Overview: Quit 12-15 documented as of this encounter (statuses as of 04/27/2022) [facility] History of Past illness Narrative* Problem Noted Date Resolved Date Encounter for colonoscopy du e to history of adenomatous colonic polyps 11/22/2015 11/22/2015 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 016 11/22/2015 Hematuria 06/09/2013 09/25/2015 Right shoulder strain 03/24/2012 09/25/2015 Carpal tunnel syndrome, right 01/30/2012 Umbilical hernia without mention of obstruction or gangrene 07/25/2010 09/25/2015 ANXIETY GENERALIZED 08/31/2008 01/10/2016 Pain in joint, shoulder region 06/22/2008 0 09/25/2015 Irritable bowel syndrome 07/16/2006 016 Overview: She has flare ups once in a while. Takes a probiotic once. Last Assessment & Plan: She has flare ups once in a while. Pain in the abdomen, along wit cramping, and bloating. Takes a probiotic once. Drinks raw beats spinach, protein powder, strawberries, almond mild and drinks it. Her constipation was resolved with it. Tobacco use disorder 07/16/2006 01/10/2016 Overview: Quit 12-15 documented as of this encounter (statuses as of 04/29/2022) [facility] History of Past illness Narrative* Problem Noted Date Resolved Date Encounter for colonoscopy du e to history of adenomatous colonic polyps 11/22/2015 11/22/2015 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 016 11/22/2015 Hematuria 06/09/2013 09/25/2015 Right shoulder strain 03/24/2012 09/25/2015 Carpal tunnel syndrome, right 01/30/2012 Umbilical hernia without mention of obstruction or gangrene 07/25/2010 09/25/2015 ANXIETY GENERALIZED 08/31/2008 01/10/2016 Pain in joint, shoulder region 06/22/2008 0 09/25/2015 Irritable bowel syndrome 07/16/2006 016 Overview: She has flare ups once in a while. Takes a probiotic once. Last Assessment & Plan: She has flare ups once in a while. Pain in the abdomen, along wit cramping, and bloating. Takes a probiotic once. Drinks raw beats spinach, protein powder, strawberries, almond mild and drinks it. Her constipation was resolved with it. Tobacco use disorder 07/16/2006 01/10/2016 Overview: Quit 12-15 documented as of this encounter (statuses as of 04/30/2022) [facility] History of Past illness Narrative* Problem Noted Date Resolved Date Encounter for colonoscopy du e to history of adenomatous colonic polyps 11/22/2015 11/22/2015 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 016 11/22/2015 Hematuria 06/09/2013 09/25/2015 Right shoulder strain 03/24/2012 09/25/2015 Carpal tunnel syndrome, right 01/30/2012 Umbilical hernia without mention of obstruction or gangrene 07/25/2010 09/25/2015 ANXIETY GENERALIZED 08/31/2008 01/10/2016 Pain in joint, shoulder region 06/22/2008 0 09/25/2015 Irritable bowel syndrome 07/16/2006 016 Overview: She has flare ups once in a while. Takes a probiotic once. Last Assessment & Plan: She has flare ups once in a while. Pain in the abdomen, along wit cramping, and bloating. Takes a probiotic once. Drinks raw beats spinach, protein powder, strawberries, almond mild and drinks it. Her constipation was resolved with it. Tobacco use disorder 07/16/2006 01/10/2016 Overview: Quit 8-06 documented as of this encounter (statuses as of 05/01/2022) [facility] History of Past illness Narrative* Problem Noted Date Resolved Date Encounter for colonoscopy du e to history of adenomatous colonic polyps 11/22/2015 11/22/2015 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 016 11/22/2015 Hematuria 06/09/2013 09/25/2015 Right shoulder strain 03/24/2012 09/25/2015 Carpal tunnel syndrome, right 01/30/2012 Umbilical hernia without mention of obstruction or gangrene 07/25/2010 09/25/2015 ANXIETY GENERALIZED 08/31/2008 01/10/2016 Pain in joint, shoulder region 06/22/2008 0 09/25/2015 Irritable bowel syndrome 07/16/2006 016 Overview: She has flare ups once in a while. Takes a probiotic once. Last Assessment & Plan: She has flare ups once in a while. Pain in the abdomen, along wit cramping, and bloating. Takes a probiotic once. Drinks raw beats spinach, protein powder, strawberries, almond mild and drinks it. Her constipation was resolved with it. Tobacco use disorder 07/16/2006 01/10/2016 Overview: Quit 8-06 documented as of this encounter (statuses as of 05/15/2022) [facility] History of Past illness Narrative* Problem Noted Date Resolved Date Encounter for colonoscopy du e to history of adenomatous colonic polyps 11/22/2015 11/22/2015 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 016 11/22/2015 Hematuria 06/09/2013 09/25/2015 Right shoulder strain 03/24/2012 09/25/2015 Carpal tunnel syndrome, right 01/30/2012 Umbilical hernia without mention of obstruction or gangrene 07/25/2010 09/25/2015 ANXIETY GENERALIZED 08/31/2008 01/10/2016 Pain in joint, shoulder region 06/22/2008 0 09/25/2015 Irritable bowel syndrome 07/16/2006 016 Overview: She has flare ups once in a while. Takes a probiotic once. Last Assessment & Plan: She has flare ups once in a while. Pain in the abdomen, along wit cramping, and bloating. Takes a probiotic once. Drinks raw beats spinach, protein powder, strawberries, almond mild and drinks it. Her constipation was resolved with it. Tobacco use disorder 07/16/2006 01/10/2016 Overview: Quit 12-15 documented as of this encounter (statuses as of 05/17/2022) [facility] History of Past illness Narrative* Problem Noted Date Resolved Date Encounter for colonoscopy du e to history of adenomatous colonic polyps 11/22/2015 11/22/2015 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 016 11/22/2015 Hematuria 06/09/2013 09/25/2015 Right shoulder strain 03/24/2012 09/25/2015 Carpal tunnel syndrome, right 01/30/2012 Umbilical hernia without mention of obstruction or gangrene 07/25/2010 09/25/2015 ANXIETY GENERALIZED 08/31/2008 01/10/2016 Pain in joint, shoulder region 06/22/2008 0 09/25/2015 Irritable bowel syndrome 07/16/2006 016 Overview: She has flare ups once in a while. Takes a probiotic once. Last Assessment & Plan: She has flare ups once in a while. Pain in the abdomen, along wit cramping, and bloating. Takes a probiotic once. Drinks raw beats spinach, protein powder, strawberries, almond mild and drinks it. Her constipation was resolved with it. Tobacco use disorder 07/16/2006 01/10/2016 Overview: Quit 12-15 documented as of this encounter (statuses as of 05/18/2022) [facility] History of Past illness Narrative* Problem Noted Date Resolved Date Encounter for colonoscopy du e to history of adenomatous colonic polyps 11/22/2015 11/22/2015 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 016 11/22/2015 Hematuria 06/09/2013 09/25/2015 Right shoulder strain 03/24/2012 09/25/2015 Carpal tunnel syndrome, right 01/30/2012 Umbilical hernia without mention of obstruction or gangrene 07/25/2010 09/25/2015 ANXIETY GENERALIZED 08/31/2008 01/10/2016 Pain in joint, shoulder region 06/22/2008 0 09/25/2015 Irritable bowel syndrome 07/16/2006 016 Overview: She has flare ups once in a while. Takes a probiotic once. Last Assessment & Plan: She has flare ups once in a while. Pain in the abdomen, along wit cramping, and bloating. Takes a probiotic once. Drinks raw beats spinach, protein powder, strawberries, almond mild and drinks it. Her constipation was resolved with it. Tobacco use disorder 07/16/2006 01/10/2016 Overview: Quit 8-06 documented as of this encounter (statuses as of 05/21/2022) [facility] History of Past illness Narrative* Problem Noted Date Resolved Date Encounter for colonoscopy du e to history of adenomatous colonic polyps 11/22/2015 11/22/2015 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 016 11/22/2015 Hematuria 06/09/2013 09/25/2015 Right shoulder strain 03/24/2012 09/25/2015 Carpal tunnel syndrome, right 01/30/2012 Umbilical hernia without mention of obstruction or gangrene 07/25/2010 09/25/2015 ANXIETY GENERALIZED 08/31/2008 01/10/2016 Pain in joint, shoulder region 06/22/2008 0 09/25/2015 Irritable bowel syndrome 07/16/2006 016 Overview: She has flare ups once in a while. Takes a probiotic once. Last Assessment & Plan: She has flare ups once in a while. Pain in the abdomen, along wit cramping, and bloating. Takes a probiotic once. Drinks raw beats spinach, protein powder, strawberries, almond mild and drinks it. Her constipation was resolved with it. Tobacco use disorder 07/16/2006 01/10/2016 Overview: Quit 12-15 documented as of this encounter (statuses as of 05/23/2022) [facility] History of Past illness Narrative* Problem Noted Date Resolved Date Encounter for colonoscopy du e to history of adenomatous colonic polyps 11/22/2015 11/22/2015 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 016 11/22/2015 Hematuria 06/09/2013 09/25/2015 Right shoulder strain 03/24/2012 09/25/2015 Carpal tunnel syndrome, right 01/30/2012 Umbilical hernia without mention of obstruction or gangrene 07/25/2010 09/25/2015 ANXIETY GENERALIZED 08/31/2008 01/10/2016 Pain in joint, shoulder region 06/22/2008 0 09/25/2015 Irritable bowel syndrome 07/16/2006 016 Overview: She has flare ups once in a while. Takes a probiotic once. Last Assessment & Plan: She has flare ups once in a while. Pain in the abdomen, along wit cramping, and bloating. Takes a probiotic once. Drinks raw beats spinach, protein powder, strawberries, almond mild and drinks it. Her constipation was resolved with it. Tobacco use disorder 07/16/2006 01/10/2016 Overview: Quit 12-15 documented as of this encounter (statuses as of 05/23/2022) [facility] History of Past illness Narrative* Problem Noted Date Resolved Date Encounter for colonoscopy du e to history of adenomatous colonic polyps 11/22/2015 11/22/2015 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 016 11/22/2015 Hematuria 06/09/2013 09/25/2015 Right shoulder strain 03/24/2012 09/25/2015 Carpal tunnel syndrome, right 01/30/2012 Umbilical hernia without mention of obstruction or gangrene 07/25/2010 09/25/2015 ANXIETY GENERALIZED 08/31/2008 01/10/2016 Pain in joint, shoulder region 06/22/2008 0 09/25/2015 Irritable bowel syndrome 07/16/2006 016 Overview: She has flare ups once in a while. Takes a probiotic once. Last Assessment & Plan: She has flare ups once in a while. Pain in the abdomen, along wit cramping, and bloating. Takes a probiotic once. Drinks raw beats spinach, protein powder, strawberries, almond mild and drinks it. Her constipation was resolved with it. Tobacco use disorder 07/16/2006 01/10/2016 Overview: Quit 12-15 documented as of this encounter (statuses as of 05/23/2022) [facility] History of Past illness Narrative* Problem Noted Date Resolved Date Encounter for colonoscopy du e to history of adenomatous colonic polyps 11/22/2015 11/22/2015 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 016 11/22/2015 Hematuria 06/09/2013 09/25/2015 Right shoulder strain 03/24/2012 09/25/2015 Carpal tunnel syndrome, right 01/30/2012 Umbilical hernia without mention of obstruction or gangrene 07/25/2010 09/25/2015 ANXIETY GENERALIZED 08/31/2008 01/10/2016 Pain in joint, shoulder region 06/22/2008 0 09/25/2015 Irritable bowel syndrome 07/16/2006 016 Overview: She has flare ups once in a while. Takes a probiotic once. Last Assessment & Plan: She has flare ups once in a while. Pain in the abdomen, along wit cramping, and bloating. Takes a probiotic once. Drinks raw beats spinach, protein powder, strawberries, almond mild and drinks it. Her constipation was resolved with it. Tobacco use disorder 07/16/2006 01/10/2016 Overview: Quit 12-15 documented as of this encounter (statuses as of 06/08/2022) [facility] History of Past illness Narrative* Problem Noted Date Resolved Date Encounter for colonoscopy du e to history of adenomatous colonic polyps 11/22/2015 11/22/2015 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 016 11/22/2015 Hematuria 06/09/2013 09/25/2015 Right shoulder strain 03/24/2012 09/25/2015 Carpal tunnel syndrome, right 01/30/2012 Umbilical hernia without mention of obstruction or gangrene 07/25/2010 09/25/2015 ANXIETY GENERALIZED 08/31/2008 01/10/2016 Pain in joint, shoulder region 06/22/2008 0 09/25/2015 Irritable bowel syndrome 07/16/2006 016 Overview: She has flare ups once in a while. Takes a probiotic once. Last Assessment & Plan: She has flare ups once in a while. Pain in the abdomen, along wit cramping, and bloating. Takes a probiotic once. Drinks raw beats spinach, protein powder, strawberries, almond mild and drinks it. Her constipation was resolved with it. Tobacco use disorder 07/16/2006 01/10/2016 Overview: Quit 8-06 documented as of this encounter (statuses as of 06/08/2022) [facility] History of Past illness Narrative* Problem Noted Date Resolved Date Encounter for colonoscopy du e to history of adenomatous colonic polyps 11/22/2015 11/22/2015 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 016 11/22/2015 Hematuria 06/09/2013 09/25/2015 Right shoulder strain 03/24/2012 09/25/2015 Carpal tunnel syndrome, right 01/30/2012 Umbilical hernia without mention of obstruction or gangrene 07/25/2010 09/25/2015 ANXIETY GENERALIZED 08/31/2008 01/10/2016 Pain in joint, shoulder region 06/22/2008 0 09/25/2015 Irritable bowel syndrome 07/16/2006 016 Overview: She has flare ups once in a while. Takes a probiotic once. Last Assessment & Plan: She has flare ups once in a while. Pain in the abdomen, along wit cramping, and bloating. Takes a probiotic once. Drinks raw beats spinach, protein powder, strawberries, almond mild and drinks it. Her constipation was resolved with it. Tobacco use disorder 07/16/2006 01/10/2016 Overview: Quit 8 documented as of this encounter (statuses as of 06/17/2022) [facility] History of Past illness Narrative* Problem Noted Date Resolved Date Encounter for colonoscopy du e to history of adenomatous colonic polyps 11/22/2015 11/22/2015 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 016 11/22/2015 Hematuria 06/09/2013 09/25/2015 Right shoulder strain 03/24/2012 09/25/2015 Carpal tunnel syndrome, right 01/30/2012 Umbilical hernia without mention of obstruction or gangrene 07/25/2010 09/25/2015 ANXIETY GENERALIZED 08/31/2008 01/10/2016 Pain in joint, shoulder region 06/22/2008 0 09/25/2015 Irritable bowel syndrome 07/16/2006 016 Overview: She has flare ups once in a while. Takes a probiotic once. Last Assessment & Plan: She has flare ups once in a while. Pain in the abdomen, along wit cramping, and bloating. Takes a probiotic once. Drinks raw beats spinach, protein powder, strawberries, almond mild and drinks it. Her constipation was resolved with it. Tobacco use disorder 07/16/2006 01/10/2016 Overview: Quit 8 documented as of this encounter (statuses as of 06/19/2022) [facility] History of Past illness Narrative* Problem Noted Date Resolved Date Encounter for colonoscopy du e to history of adenomatous colonic polyps 11/22/2015 11/22/2015 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 016 11/22/2015 Hematuria 06/09/2013 09/25/2015 Right shoulder strain 03/24/2012 09/25/2015 Carpal tunnel syndrome, right 01/30/2012 Umbilical hernia without mention of obstruction or gangrene 07/25/2010 09/25/2015 ANXIETY GENERALIZED 08/31/2008 01/10/2016 Pain in joint, shoulder region 06/22/2008 0 09/25/2015 Irritable bowel syndrome 07/16/2006 016 Overview: She has flare ups once in a while. Takes a probiotic once. Last Assessment & Plan: She has flare ups once in a while. Pain in the abdomen, along wit cramping, and bloating. Takes a probiotic once. Drinks raw beats spinach, protein powder, strawberries, almond mild and drinks it. Her constipation was resolved with it. Tobacco use disorder 07/16/2006 01/10/2016 Overview: Quit 8-06 documented as of this encounter (statuses as of 07/04/2022) [facility] History of Past illness Narrative* Problem Noted Date Resolved Date Encounter for colonoscopy du e to history of adenomatous colonic polyps 11/22/2015 11/22/2015 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 016 11/22/2015 Hematuria 06/09/2013 09/25/2015 Right shoulder strain 03/24/2012 09/25/2015 Carpal tunnel syndrome, right 01/30/2012 Umbilical hernia without mention of obstruction or gangrene 07/25/2010 09/25/2015 ANXIETY GENERALIZED 08/31/2008 01/10/2016 Pain in joint, shoulder region 06/22/2008 0 09/25/2015 Irritable bowel syndrome 07/16/2006 016 Overview: She has flare ups once in a while. Takes a probiotic once. Last Assessment & Plan: She has flare ups once in a while. Pain in the abdomen, along wit cramping, and bloating. Takes a probiotic once. Drinks raw beats spinach, protein powder, strawberries, almond mild and drinks it. Her constipation was resolved with it. Tobacco use disorder 07/16/2006 01/10/2016 Overview: Quit 12-15 documented as of this encounter (statuses as of 07/08/2022) [facility] History of Past illness Narrative* Problem Noted Date Resolved Date Encounter for colonoscopy du e to history of adenomatous colonic polyps 11/22/2015 11/22/2015 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 016 11/22/2015 Hematuria 06/09/2013 09/25/2015 Right shoulder strain 03/24/2012 09/25/2015 Carpal tunnel syndrome, right 01/30/2012 Umbilical hernia without mention of obstruction or gangrene 07/25/2010 09/25/2015 ANXIETY GENERALIZED 08/31/2008 01/10/2016 Pain in joint, shoulder region 06/22/2008 0 09/25/2015 Irritable bowel syndrome 07/16/2006 016 Overview: She has flare ups once in a while. Takes a probiotic once. Last Assessment & Plan: She has flare ups once in a while. Pain in the abdomen, along wit cramping, and bloating. Takes a probiotic once. Drinks raw beats spinach, protein powder, strawberries, almond mild and drinks it. Her constipation was resolved with it. Tobacco use disorder 07/16/2006 01/10/2016 Overview: Quit 12-15 documented as of this encounter (statuses as of 07/21/2022) [facility] History of Past illness Narrative* Problem Noted Date Resolved Date Encounter for colonoscopy du e to history of adenomatous colonic polyps 11/22/2015 11/22/2015 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 016 11/22/2015 Hematuria 06/09/2013 09/25/2015 Right shoulder strain 03/24/2012 09/25/2015 Carpal tunnel syndrome, right 01/30/2012 Umbilical hernia without mention of obstruction or gangrene 07/25/2010 09/25/2015 ANXIETY GENERALIZED 08/31/2008 01/10/2016 Pain in joint, shoulder region 06/22/2008 0 09/25/2015 Irritable bowel syndrome 07/16/2006 016 Overview: She has flare ups once in a while. Takes a probiotic once. Last Assessment & Plan: She has flare ups once in a while. Pain in the abdomen, along wit cramping, and bloating. Takes a probiotic once. Drinks raw beats spinach, protein powder, strawberries, almond mild and drinks it. Her constipation was resolved with it. Tobacco use disorder 07/16/2006 01/10/2016 Overview: Quit 12-15 documented as of this encounter (statuses as of 07/25/2022) [facility] History of Past illness Narrative* Problem Noted Date Resolved Date Encounter for colonoscopy du e to history of adenomatous colonic polyps 11/22/2015 11/22/2015 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 016 11/22/2015 Hematuria 06/09/2013 09/25/2015 Right shoulder strain 03/24/2012 09/25/2015 Carpal tunnel syndrome, right 01/30/2012 Umbilical hernia without mention of obstruction or gangrene 07/25/2010 09/25/2015 ANXIETY GENERALIZED 08/31/2008 01/10/2016 Pain in joint, shoulder region 06/22/2008 0 09/25/2015 Irritable bowel syndrome 07/16/2006 016 Overview: She has flare ups once in a while. Takes a probiotic once. Last Assessment & Plan: She has flare ups once in a while. Pain in the abdomen, along wit cramping, and bloating. Takes a probiotic once. Drinks raw beats spinach, protein powder, strawberries, almond mild and drinks it. Her constipation was resolved with it. Tobacco use disorder 07/16/2006 01/10/2016 Overview: Quit 12-15 documented as of this encounter (statuses as of 08/09/2022) [facility] History of Past illness Narrative* Problem Noted Date Resolved Date Encounter for colonoscopy du e to history of adenomatous colonic polyps 11/22/2015 11/22/2015 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 016 11/22/2015 Hematuria 06/09/2013 09/25/2015 Right shoulder strain 03/24/2012 09/25/2015 Carpal tunnel syndrome, right 01/30/2012 Umbilical hernia without mention of obstruction or gangrene 07/25/2010 09/25/2015 ANXIETY GENERALIZED 08/31/2008 01/10/2016 Pain in joint, shoulder region 06/22/2008 0 09/25/2015 Irritable bowel syndrome 07/16/2006 016 Overview: She has flare ups once in a while. Takes a probiotic once. Last Assessment & Plan: She has flare ups once in a while. Pain in the abdomen, along wit cramping, and bloating. Takes a probiotic once. Drinks raw beats spinach, protein powder, strawberries, almond mild and drinks it. Her constipation was resolved with it. Tobacco use disorder 07/16/2006 01/10/2016 Overview: Quit 8-06 documented as of this encounter (statuses as of 08/30/2022) [facility] History of Past illness Narrative* Problem Noted Date Resolved Date Encounter for colonoscopy du e to history of adenomatous colonic polyps 11/22/2015 11/22/2015 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 016 11/22/2015 Hematuria 06/09/2013 09/25/2015 Right shoulder strain 03/24/2012 09/25/2015 Carpal tunnel syndrome, right 01/30/2012 Umbilical hernia without mention of obstruction or gangrene 07/25/2010 09/25/2015 ANXIETY GENERALIZED 08/31/2008 01/10/2016 Pain in joint, shoulder region 06/22/2008 0 09/25/2015 Irritable bowel syndrome 07/16/2006 016 Overview: She has flare ups once in a while. Takes a probiotic once. Last Assessment & Plan: She has flare ups once in a while. Pain in the abdomen, along wit cramping, and bloating. Takes a probiotic once. Drinks raw beats spinach, protein powder, strawberries, almond mild and drinks it. Her constipation was resolved with it. Tobacco use disorder 07/16/2006 01/10/2016 Overview: Quit 8- documented as of this encounter (statuses as of 09/05/2022) [facility] History of Past illness Narrative* Problem Noted Date Resolved Date Encounter for colonoscopy du e to history of adenomatous colonic polyps 11/22/2015 11/22/2015 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 016 11/22/2015 Hematuria 06/09/2013 09/25/2015 Right shoulder strain 03/24/2012 09/25/2015 Carpal tunnel syndrome, right 01/30/2012 Umbilical hernia without mention of obstruction or gangrene 07/25/2010 09/25/2015 ANXIETY GENERALIZED 08/31/2008 01/10/2016 Pain in joint, shoulder region 06/22/2008 0 09/25/2015 Irritable bowel syndrome 07/16/2006 016 Overview: She has flare ups once in a while. Takes a probiotic once. Last Assessment & Plan: She has flare ups once in a while. Pain in the abdomen, along wit cramping, and bloating. Takes a probiotic once. Drinks raw beats spinach, protein powder, strawberries, almond mild and drinks it. Her constipation was resolved with it. Tobacco use disorder 07/16/2006 01/10/2016 Overview: Quit 8- documented as of this encounter (statuses as of 10/15/2022) [facility] History of Past illness Narrative* Problem Noted Date Resolved Date Encounter for colonoscopy du e to history of adenomatous colonic polyps 11/22/2015 11/22/2015 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 016 11/22/2015 Hematuria 06/09/2013 09/25/2015 Right shoulder strain 03/24/2012 09/25/2015 Carpal tunnel syndrome, right 01/30/2012 Umbilical hernia without mention of obstruction or gangrene 07/25/2010 09/25/2015 ANXIETY GENERALIZED 08/31/2008 01/10/2016 Pain in joint, shoulder region 06/22/2008 0 09/25/2015 Irritable bowel syndrome 07/16/2006 016 Overview: She has flare ups once in a while. Takes a probiotic once. Last Assessment & Plan: She has flare ups once in a while. Pain in the abdomen, along wit cramping, and bloating. Takes a probiotic once. Drinks raw beats spinach, protein powder, strawberries, almond mild and drinks it. Her constipation was resolved with it. Tobacco use disorder 07/16/2006 01/10/2016 Overview: Quit 8-06 documented as of this encounter (statuses as of 10/31/2022) [facility] History of Past illness Narrative* Problem Noted Date Diagnosed Date Resolved Date Encounter for colonoscopy du e to history of adenomatous colonic polyps 11/22/2015 11/22/2015 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 11/22/2015 11/22/2015 Hematuria 06/09/2013 09/25/2015 Right shoulder strain 03/24/20122015 Carpal tunnel syndrome, right 01/30/2012 01/10/2016 Umbilical hernia without men tion of obstruction or gangrene 07/25/2010 09/25/2015 ANXIETY GENERALIZED 08/31/2008 01/10/20 16 Pain in joint, shoulder region 06/22/2008 09/25/2015 Irritable bowel syndrome 07/16/2006 Overview: She has flare ups once in a while. Takes a probiotic once. Last Assessment & Plan: She has flare ups once in a while. Pain in the abdomen, along wit cramping, and bloating. Takes a probiotic once. Drinks raw beats spinach, protein powder, strawberries, almond mild and drinks it. Her constipation was resolved with it. Tobacco use disorder 07/16/2006 016 Overview: Quit 8-06 documented as of this encounter (statuses as of 12/13/2022) [facility] History of Past illness Narrative* Problem Noted Date Diagnosed Date Resolved Date Encounter for colonoscopy du e to history of adenomatous colonic polyps 11/22/2015 11/22/2015 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 11/22/2015 11/22/2015 Hematuria 06/09/2013 09/25/2015 Right shoulder strain 03/24/20122015 Carpal tunnel syndrome, right 01/30/2012 01/10/2016 Umbilical hernia without men tion of obstruction or gangrene 07/25/2010 09/25/2015 ANXIETY GENERALIZED 08/31/2008 01/10/20 16 Pain in joint, shoulder region 06/22/2008 09/25/2015 Irritable bowel syndrome 07/16/2006 Overview: She has flare ups once in a while. Takes a probiotic once. Last Assessment & Plan: She has flare ups once in a while. Pain in the abdomen, along wit cramping, and bloating. Takes a probiotic once. Drinks raw beats spinach, protein powder, strawberries, almond mild and drinks it. Her constipation was resolved with it. Tobacco use disorder 07/16/2006 016 Overview: Quit 8-06 documented as of this encounter (statuses as of 12/13/2022) [facility] History of Past illness Narrative* Problem Noted Date Diagnosed Date Resolved Date Encounter for colonoscopy du e to history of adenomatous colonic polyps 11/22/2015 11/22/2015 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 11/22/2015 11/22/2015 Hematuria 06/09/2013 09/25/2015 Right shoulder strain 03/24/20122015 Carpal tunnel syndrome, right 01/30/2012 01/10/2016 Umbilical hernia without men tion of obstruction or gangrene 07/25/2010 09/25/2015 ANXIETY GENERALIZED 08/31/2008 01/10/20 16 Pain in joint, shoulder region 06/22/2008 09/25/2015 Irritable bowel syndrome 07/16/2006 Overview: She has flare ups once in a while. Takes a probiotic once. Last Assessment & Plan: She has flare ups once in a while. Pain in the abdomen, along wit cramping, and bloating. Takes a probiotic once. Drinks raw beats spinach, protein powder, strawberries, almond mild and drinks it. Her constipation was resolved with it. Tobacco use disorder 07/16/2006 016 Overview: Quit 12-15 documented as of this encounter (statuses as of 12/27/2022) [facility] History of Past illness Narrative* Problem Noted Date Diagnosed Date Resolved Date Encounter for colonoscopy du e to history of adenomatous colonic polyps 11/22/2015 11/22/2015 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 11/22/2015 11/22/2015 Hematuria 06/09/2013 09/25/2015 Right shoulder strain 03/24/20122015 Carpal tunnel syndrome, right 01/30/2012 01/10/2016 Umbilical hernia without men tion of obstruction or gangrene 07/25/2010 09/25/2015 ANXIETY GENERALIZED 08/31/2008 01/10/20 16 Pain in joint, shoulder region 06/22/2008 09/25/2015 Irritable bowel syndrome 07/16/2006 Overview: She has flare ups once in a while. Takes a probiotic once. Last Assessment & Plan: She has flare ups once in a while. Pain in the abdomen, along wit cramping, and bloating. Takes a probiotic once. Drinks raw beats spinach, protein powder, strawberries, almond mild and drinks it. Her constipation was resolved with it. Tobacco use disorder 07/16/2006 016 Overview: Quit 12-15 documented as of this encounter (statuses as of 12/27/2022) [facility] History of Past illness Narrative* Problem Noted Date Diagnosed Date Resolved Date Encounter for colonoscopy du e to history of adenomatous colonic polyps 11/22/2015 11/22/2015 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 11/22/2015 11/22/2015 Hematuria 06/09/2013 09/25/2015 Right shoulder strain 03/24/20122015 Carpal tunnel syndrome, right 01/30/2012 01/10/2016 Umbilical hernia without men tion of obstruction or gangrene 07/25/2010 09/25/2015 ANXIETY GENERALIZED 08/31/2008 01/10/20 16 Pain in joint, shoulder region 06/22/2008 09/25/2015 Irritable bowel syndrome 07/16/2006 Overview: She has flare ups once in a while. Takes a probiotic once. Last Assessment & Plan: She has flare ups once in a while. Pain in the abdomen, along wit cramping, and bloating. Takes a probiotic once. Drinks raw beats spinach, protein powder, strawberries, almond mild and drinks it. Her constipation was resolved with it. Tobacco use disorder 07/16/2006 016 Overview: Quit 8-06 documented as of this encounter (statuses as of 12/31/2022) [facility] History of Past illness Narrative* Problem Noted Date Diagnosed Date Resolved Date Encounter for colonoscopy du e to history of adenomatous colonic polyps 11/22/2015 11/22/2015 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 11/22/2015 11/22/2015 Hematuria 06/09/2013 09/25/2015 Right shoulder strain 03/24/20122015 Carpal tunnel syndrome, right 01/30/2012 01/10/2016 Umbilical hernia without men tion of obstruction or gangrene 07/25/2010 09/25/2015 ANXIETY GENERALIZED 08/31/2008 01/10/20 16 Pain in joint, shoulder region 06/22/2008 09/25/2015 Irritable bowel syndrome 07/16/2006 Overview: She has flare ups once in a while. Takes a probiotic once. Last Assessment & Plan: She has flare ups once in a while. Pain in the abdomen, along wit cramping, and bloating. Takes a probiotic once. Drinks raw beats spinach, protein powder, strawberries, almond mild and drinks it. Her constipation was resolved with it. Tobacco use disorder 07/16/2006 016 Overview: Quit 12-15 documented as of this encounter (statuses as of 01/04/2023) [facility] History of Past illness Narrative* Problem Noted Date Diagnosed Date Resolved Date Encounter for colonoscopy du e to history of adenomatous colonic polyps 11/22/2015 11/22/2015 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 11/22/2015 11/22/2015 Hematuria 06/09/2013 09/25/2015 Right shoulder strain 03/24/20122015 Carpal tunnel syndrome, right 01/30/2012 01/10/2016 Umbilical hernia without men tion of obstruction or gangrene 07/25/2010 09/25/2015 ANXIETY GENERALIZED 08/31/2008 01/10/20 16 Pain in joint, shoulder region 06/22/2008 09/25/2015 Irritable bowel syndrome 07/16/2006 Overview: She has flare ups once in a while. Takes a probiotic once. Last Assessment & Plan: She has flare ups once in a while. Pain in the abdomen, along wit cramping, and bloating. Takes a probiotic once. Drinks raw beats spinach, protein powder, strawberries, almond mild and drinks it. Her constipation was resolved with it. Tobacco use disorder 07/16/2006 016 Overview: Quit 8 documented as of this encounter (statuses as of 01/17/2023) [facility] History of Past illness Narrative* Problem Noted Date Diagnosed Date Resolved Date Encounter for colonoscopy du e to history of adenomatous colonic polyps 11/22/2015 11/22/2015 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 11/22/2015 11/22/2015 Hematuria 06/09/2013 09/25/2015 Right shoulder strain 03/24/20122015 Carpal tunnel syndrome, right 01/30/2012 01/10/2016 Umbilical hernia without men tion of obstruction or gangrene 07/25/2010 09/25/2015 ANXIETY GENERALIZED 08/31/2008 01/10/20 16 Pain in joint, shoulder region 06/22/2008 09/25/2015 Irritable bowel syndrome 07/16/2006 Overview: She has flare ups once in a while. Takes a probiotic once. Last Assessment & Plan: She has flare ups once in a while. Pain in the abdomen, along wit cramping, and bloating. Takes a probiotic once. Drinks raw beats spinach, protein powder, strawberries, almond mild and drinks it. Her constipation was resolved with it. Tobacco use disorder 07/16/2006 016 Overview: Quit 8-06 documented as of this encounter (statuses as of 01/24/2023) [facility] History of Past illness Narrative* Problem Noted Date Diagnosed Date Resolved Date Encounter for colonoscopy du e to history of adenomatous colonic polyps 11/22/2015 11/22/2015 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 11/22/2015 11/22/2015 Panlobular emphysema 04/28/2015 023 Last Assessment & Plan: Assessment: no daily inhaler, no recent PFT's, lungs CTA no exam, former smoker 2ppd/30 years Hematuria 06/09/2013 09/25/2015 Right shoulder strain 03/24/20122015 Carpal tunnel syndrome, right 01/30/2012 01/10/2016 Umbilical hernia without men tion of obstruction or gangrene 07/25/2010 09/25/2015 ANXIETY GENERALIZED 08/31/2008 01/10/20 16 Pain in joint, shoulder region 06/22/2008 09/25/2015 Irritable bowel syndrome 07/16/2006 Overview: She has flare ups once in a while. Takes a probiotic once. Last Assessment & Plan: She has flare ups once in a while. Pain in the abdomen, along wit cramping, and bloating. Takes a probiotic once. Drinks raw beats spinach, protein powder, strawberries, almond mild and drinks it. Her constipation was resolved with it. Tobacco use disorder 07/16/2006 016 Overview: Quit 12-15 documented as of this encounter (statuses as of 01/27/2023) [facility] History of Past illness Narrative* Problem Noted Date Diagnosed Date Resolved Date Encounter for colonoscopy du e to history of adenomatous colonic polyps 11/22/2015 11/22/2015 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 11/22/2015 11/22/2015 Panlobular emphysema 04/28/2015 023 Last Assessment & Plan: Assessment: no daily inhaler, no recent PFT's, lungs CTA no exam, former smoker 2ppd/30 years Hematuria 06/09/2013 09/25/2015 Right shoulder strain 03/24/20122015 Carpal tunnel syndrome, right 01/30/2012 01/10/2016 Umbilical hernia without men tion of obstruction or gangrene 07/25/2010 09/25/2015 ANXIETY GENERALIZED 08/31/2008 01/10/20 16 Pain in joint, shoulder region 06/22/2008 09/25/2015 Irritable bowel syndrome 07/16/2006 Overview: She has flare ups once in a while. Takes a probiotic once. Last Assessment & Plan: She has flare ups once in a while. Pain in the abdomen, along wit cramping, and bloating. Takes a probiotic once. Drinks raw beats spinach, protein powder, strawberries, almond mild and drinks it. Her constipation was resolved with it. Tobacco use disorder 07/16/2006 016 Overview: Quit 12-15 documented as of this encounter (statuses as of 01/28/2023) [facility] History of Past illness Narrative* Problem Noted Date Diagnosed Date Resolved Date Encounter for colonoscopy du e to history of adenomatous colonic polyps 11/22/2015 11/22/2015 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 11/22/2015 11/22/2015 Panlobular emphysema 04/28/2015 023 Last Assessment & Plan: Assessment: no daily inhaler, no recent PFT's, lungs CTA no exam, former smoker 2ppd/30 years Hematuria 06/09/2013 09/25/2015 Right shoulder strain 03/24/20122015 Carpal tunnel syndrome, right 01/30/2012 01/10/2016 Umbilical hernia without men tion of obstruction or gangrene 07/25/2010 09/25/2015 ANXIETY GENERALIZED 08/31/2008 01/10/20 16 Pain in joint, shoulder region 06/22/2008 09/25/2015 Irritable bowel syndrome 07/16/2006 Overview: She has flare ups once in a while. Takes a probiotic once. Last Assessment & Plan: She has flare ups once in a while. Pain in the abdomen, along wit cramping, and bloating. Takes a probiotic once. Drinks raw beats spinach, protein powder, strawberries, almond mild and drinks it. Her constipation was resolved with it. Tobacco use disorder 07/16/2006 016 Overview: Quit 8-06 documented as of this encounter (statuses as of 01/28/2023) [facility] History of Past illness Narrative* Problem Noted Date Diagnosed Date Resolved Date Encounter for colonoscopy du e to history of adenomatous colonic polyps 11/22/2015 11/22/2015 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 11/22/2015 11/22/2015 Panlobular emphysema 04/28/2015 023 Last Assessment & Plan: Assessment: no daily inhaler, no recent PFT's, lungs CTA no exam, former smoker 2ppd/30 years Hematuria 06/09/2013 09/25/2015 Right shoulder strain 03/24/20122015 Carpal tunnel syndrome, right 01/30/2012 01/10/2016 Umbilical hernia without men tion of obstruction or gangrene 07/25/2010 09/25/2015 ANXIETY GENERALIZED 08/31/2008 01/10/20 16 Pain in joint, shoulder region 06/22/2008 09/25/2015 Irritable bowel syndrome 07/16/2006 Overview: She has flare ups once in a while. Takes a probiotic once. Last Assessment & Plan: She has flare ups once in a while. Pain in the abdomen, along wit cramping, and bloating. Takes a probiotic once. Drinks raw beats spinach, protein powder, strawberries, almond mild and drinks it. Her constipation was resolved with it. Tobacco use disorder 07/16/2006 016 Overview: Quit 8-06 documented as of this encounter (statuses as of 02/15/2023) [facility] History of Past illness Narrative* Problem Noted Date Diagnosed Date Resolved Date Encounter for colonoscopy du e to history of adenomatous colonic polyps 11/22/2015 11/22/2015 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 11/22/2015 11/22/2015 Panlobular emphysema 04/28/2015 023 Last Assessment & Plan: Assessment: no daily inhaler, no recent PFT's, lungs CTA no exam, former smoker 2ppd/30 years Hematuria 06/09/2013 09/25/2015 Right shoulder strain 03/24/20122015 Carpal tunnel syndrome, right 01/30/2012 01/10/2016 Umbilical hernia without men tion of obstruction or gangrene 07/25/2010 09/25/2015 ANXIETY GENERALIZED 08/31/2008 01/10/20 16 Pain in joint, shoulder region 06/22/2008 09/25/2015 Irritable bowel syndrome 07/16/2006 Overview: She has flare ups once in a while. Takes a probiotic once. Last Assessment & Plan: She has flare ups once in a while. Pain in the abdomen, along wit cramping, and bloating. Takes a probiotic once. Drinks raw beats spinach, protein powder, strawberries, almond mild and drinks it. Her constipation was resolved with it. Tobacco use disorder 07/16/2006 016 Overview: Quit 12-15 documented as of this encounter (statuses as of 02/23/2023) [facility] History of Past illness Narrative* Problem Noted Date Diagnosed Date Resolved Date Encounter for colonoscopy du e to history of adenomatous colonic polyps 11/22/2015 11/22/2015 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 11/22/2015 11/22/2015 Panlobular emphysema 04/28/2015 023 Last Assessment & Plan: Assessment: no daily inhaler, no recent PFT's, lungs CTA no exam, former smoker 2ppd/30 years Hematuria 06/09/2013 09/25/2015 Right shoulder strain 03/24/20122015 Carpal tunnel syndrome, right 01/30/2012 01/10/2016 Umbilical hernia without men tion of obstruction or gangrene 07/25/2010 09/25/2015 ANXIETY GENERALIZED 08/31/2008 01/10/20 16 Pain in joint, shoulder region 06/22/2008 09/25/2015 Irritable bowel syndrome 07/16/2006 Overview: She has flare ups once in a while. Takes a probiotic once. Last Assessment & Plan: She has flare ups once in a while. Pain in the abdomen, along wit cramping, and bloating. Takes a probiotic once. Drinks raw beats spinach, protein powder, strawberries, almond mild and drinks it. Her constipation was resolved with it. Tobacco use disorder 07/16/2006 016 Overview: Quit 12-15 documented as of this encounter (statuses as of 03/03/2023) [facility] History of Past illness Narrative* Problem Noted Date Diagnosed Date Resolved Date Encounter for colonoscopy du e to history of adenomatous colonic polyps 11/22/2015 11/22/2015 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 11/22/2015 11/22/2015 Panlobular emphysema 04/28/2015 023 Last Assessment & Plan: Assessment: no daily inhaler, no recent PFT's, lungs CTA no exam, former smoker 2ppd/30 years Hematuria 06/09/2013 09/25/2015 Right shoulder strain 03/24/20122015 Carpal tunnel syndrome, right 01/30/2012 01/10/2016 Umbilical hernia without men tion of obstruction or gangrene 07/25/2010 09/25/2015 ANXIETY GENERALIZED 08/31/2008 01/10/20 16 Pain in joint, shoulder region 06/22/2008 09/25/2015 Irritable bowel syndrome 07/16/2006 Overview: She has flare ups once in a while. Takes a probiotic once. Last Assessment & Plan: She has flare ups once in a while. Pain in the abdomen, along wit cramping, and bloating. Takes a probiotic once. Drinks raw beats spinach, protein powder, strawberries, almond mild and drinks it. Her constipation was resolved with it. Tobacco use disorder 07/16/2006 016 Overview: Quit 8-06 documented as of this encounter (statuses as of 03/04/2023) [facility] History of Past illness Narrative* Problem Noted Date Diagnosed Date Resolved Date Encounter for colonoscopy du e to history of adenomatous colonic polyps 11/22/2015 11/22/2015 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 11/22/2015 11/22/2015 Panlobular emphysema 04/28/2015 023 Last Assessment & Plan: Assessment: no daily inhaler, no recent PFT's, lungs CTA no exam, former smoker 2ppd/30 years Hematuria 06/09/2013 09/25/2015 Right shoulder strain 03/24/20122015 Carpal tunnel syndrome, right 01/30/2012 01/10/2016 Umbilical hernia without men tion of obstruction or gangrene 07/25/2010 09/25/2015 ANXIETY GENERALIZED 08/31/2008 01/10/20 16 Pain in joint, shoulder region 06/22/2008 09/25/2015 Irritable bowel syndrome 07/16/2006 Overview: She has flare ups once in a while. Takes a probiotic once. Last Assessment & Plan: She has flare ups once in a while. Pain in the abdomen, along wit cramping, and bloating. Takes a probiotic once. Drinks raw beats spinach, protein powder, strawberries, almond mild and drinks it. Her constipation was resolved with it. Tobacco use disorder 07/16/2006 016 Overview: Quit 8-06 documented as of this encounter (statuses as of 03/05/2023) [facility] History of Past illness Narrative* Problem Noted Date Diagnosed Date Resolved Date Encounter for colonoscopy du e to history of adenomatous colonic polyps 11/22/2015 11/22/2015 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 11/22/2015 11/22/2015 Panlobular emphysema 04/28/2015 023 Last Assessment & Plan: Assessment: no daily inhaler, no recent PFT's, lungs CTA no exam, former smoker 2ppd/30 years Hematuria 06/09/2013 09/25/2015 Right shoulder strain 03/24/20122015 Carpal tunnel syndrome, right 01/30/2012 01/10/2016 Umbilical hernia without men tion of obstruction or gangrene 07/25/2010 09/25/2015 ANXIETY GENERALIZED 08/31/2008 01/10/20 16 Pain in joint, shoulder region 06/22/2008 09/25/2015 Irritable bowel syndrome 07/16/2006 Overview: She has flare ups once in a while. Takes a probiotic once. Last Assessment & Plan: She has flare ups once in a while. Pain in the abdomen, along wit cramping, and bloating. Takes a probiotic once. Drinks raw beats spinach, protein powder, strawberries, almond mild and drinks it. Her constipation was resolved with it. Tobacco use disorder 07/16/2006 016 Overview: Quit 12-15 documented as of this encounter (statuses as of 03/06/2023) [facility] History of Past illness Narrative* Problem Noted Date Diagnosed Date Resolved Date Encounter for colonoscopy du e to history of adenomatous colonic polyps 11/22/2015 11/22/2015 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 11/22/2015 11/22/2015 Panlobular emphysema 04/28/2015 023 Last Assessment & Plan: Assessment: no daily inhaler, no recent PFT's, lungs CTA no exam, former smoker 2ppd/30 years Hematuria 06/09/2013 09/25/2015 Right shoulder strain 03/24/20122015 Carpal tunnel syndrome, right 01/30/2012 01/10/2016 Umbilical hernia without men tion of obstruction or gangrene 07/25/2010 09/25/2015 ANXIETY GENERALIZED 08/31/2008 01/10/20 16 Pain in joint, shoulder region 06/22/2008 09/25/2015 Irritable bowel syndrome 07/16/2006 Overview: She has flare ups once in a while. Takes a probiotic once. Last Assessment & Plan: She has flare ups once in a while. Pain in the abdomen, along wit cramping, and bloating. Takes a probiotic once. Drinks raw beats spinach, protein powder, strawberries, almond mild and drinks it. Her constipation was resolved with it. Tobacco use disorder 07/16/2006 016 Overview: Quit 12-15 documented as of this encounter (statuses as of 03/16/2023) [facility] History of Past illness Narrative* Problem Noted Date Diagnosed Date Resolved Date Encounter for colonoscopy du e to history of adenomatous colonic polyps 11/22/2015 11/22/2015 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 11/22/2015 11/22/2015 Panlobular emphysema 04/28/2015 023 Last Assessment & Plan: Assessment: no daily inhaler, no recent PFT's, lungs CTA no exam, former smoker 2ppd/30 years Hematuria 06/09/2013 09/25/2015 Right shoulder strain 03/24/20122015 Carpal tunnel syndrome, right 01/30/2012 01/10/2016 Umbilical hernia without men tion of obstruction or gangrene 07/25/2010 09/25/2015 ANXIETY GENERALIZED 08/31/2008 01/10/20 16 Pain in joint, shoulder region 06/22/2008 09/25/2015 Irritable bowel syndrome 07/16/2006 Overview: She has flare ups once in a while. Takes a probiotic once. Last Assessment & Plan: She has flare ups once in a while. Pain in the abdomen, along wit cramping, and bloating. Takes a probiotic once. Drinks raw beats spinach, protein powder, strawberries, almond mild and drinks it. Her constipation was resolved with it. Tobacco use disorder 07/16/2006 016 Overview: Quit 8-06 documented as of this encounter (statuses as of 03/16/2023) [facility] History of Past illness Narrative* Problem Noted Date Diagnosed Date Resolved Date Encounter for colonoscopy du e to history of adenomatous colonic polyps 11/22/2015 11/22/2015 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 11/22/2015 11/22/2015 Panlobular emphysema 04/28/2015 023 Last Assessment & Plan: Assessment: no daily inhaler, no recent PFT's, lungs CTA no exam, former smoker 2ppd/30 years Hematuria 06/09/2013 09/25/2015 Right shoulder strain 03/24/20122015 Carpal tunnel syndrome, right 01/30/2012 01/10/2016 Umbilical hernia without men tion of obstruction or gangrene 07/25/2010 09/25/2015 ANXIETY GENERALIZED 08/31/2008 01/10/20 16 Pain in joint, shoulder region 06/22/2008 09/25/2015 Irritable bowel syndrome 07/16/2006 Overview: She has flare ups once in a while. Takes a probiotic once. Last Assessment & Plan: She has flare ups once in a while. Pain in the abdomen, along wit cramping, and bloating. Takes a probiotic once. Drinks raw beats spinach, protein powder, strawberries, almond mild and drinks it. Her constipation was resolved with it. Tobacco use disorder 07/16/2006 016 Overview: Quit 8-06 documented as of this encounter (statuses as of 03/16/2023) [facility] History of Past illness Narrative* Problem Noted Date Diagnosed Date Resolved Date Encounter for colonoscopy du e to history of adenomatous colonic polyps 11/22/2015 11/22/2015 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 11/22/2015 11/22/2015 Panlobular emphysema 04/28/2015 023 Last Assessment & Plan: Assessment: no daily inhaler, no recent PFT's, lungs CTA no exam, former smoker 2ppd/30 years Hematuria 06/09/2013 09/25/2015 Right shoulder strain 03/24/20122015 Carpal tunnel syndrome, right 01/30/2012 01/10/2016 Umbilical hernia without men tion of obstruction or gangrene 07/25/2010 09/25/2015 ANXIETY GENERALIZED 08/31/2008 01/10/20 16 Pain in joint, shoulder region 06/22/2008 09/25/2015 Irritable bowel syndrome 07/16/2006 Overview: She has flare ups once in a while. Takes a probiotic once. Last Assessment & Plan: She has flare ups once in a while. Pain in the abdomen, along wit cramping, and bloating. Takes a probiotic once. Drinks raw beats spinach, protein powder, strawberries, almond mild and drinks it. Her constipation was resolved with it. Tobacco use disorder 07/16/2006 016 Overview: Quit 12-15 documented as of this encounter (statuses as of 03/16/2023) [facility] History of Past illness Narrative* Problem Noted Date Diagnosed Date Resolved Date Encounter for colonoscopy du e to history of adenomatous colonic polyps 11/22/2015 11/22/2015 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 11/22/2015 11/22/2015 Panlobular emphysema 04/28/2015 023 Last Assessment & Plan: Assessment: no daily inhaler, no recent PFT's, lungs CTA no exam, former smoker 2ppd/30 years Hematuria 06/09/2013 09/25/2015 Right shoulder strain 03/24/20122015 Carpal tunnel syndrome, right 01/30/2012 01/10/2016 Umbilical hernia without men tion of obstruction or gangrene 07/25/2010 09/25/2015 ANXIETY GENERALIZED 08/31/2008 01/10/20 16 Pain in joint, shoulder region 06/22/2008 09/25/2015 Irritable bowel syndrome 07/16/2006 Overview: She has flare ups once in a while. Takes a probiotic once. Last Assessment & Plan: She has flare ups once in a while. Pain in the abdomen, along wit cramping, and bloating. Takes a probiotic once. Drinks raw beats spinach, protein powder, strawberries, almond mild and drinks it. Her constipation was resolved with it. Tobacco use disorder 07/16/2006 016 Overview: Quit 12-15 documented as of this encounter (statuses as of 03/18/2023) [facility] History of Past illness Narrative* Problem Noted Date Diagnosed Date Resolved Date Encounter for colonoscopy du e to history of adenomatous colonic polyps 11/22/2015 11/22/2015 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 11/22/2015 11/22/2015 Panlobular emphysema 04/28/2015 023 Last Assessment & Plan: Assessment: no daily inhaler, no recent PFT's, lungs CTA no exam, former smoker 2ppd/30 years Hematuria 06/09/2013 09/25/2015 Right shoulder strain 03/24/20122015 Carpal tunnel syndrome, right 01/30/2012 01/10/2016 Umbilical hernia without men tion of obstruction or gangrene 07/25/2010 09/25/2015 ANXIETY GENERALIZED 08/31/2008 01/10/20 16 Pain in joint, shoulder region 06/22/2008 09/25/2015 Irritable bowel syndrome 07/16/2006 Overview: She has flare ups once in a while. Takes a probiotic once. Last Assessment & Plan: She has flare ups once in a while. Pain in the abdomen, along wit cramping, and bloating. Takes a probiotic once. Drinks raw beats spinach, protein powder, strawberries, almond mild and drinks it. Her constipation was resolved with it. Tobacco use disorder 07/16/2006 016 Overview: Quit 8-06 documented as of this encounter (statuses as of 03/24/2023) [facility] History of Past illness Narrative* Problem Noted Date Diagnosed Date Resolved Date Encounter for colonoscopy du e to history of adenomatous colonic polyps 11/22/2015 11/22/2015 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 11/22/2015 11/22/2015 Panlobular emphysema 04/28/2015 023 Last Assessment & Plan: Assessment: no daily inhaler, no recent PFT's, lungs CTA no exam, former smoker 2ppd/30 years Hematuria 06/09/2013 09/25/2015 Right shoulder strain 03/24/20122015 Carpal tunnel syndrome, right 01/30/2012 01/10/2016 Umbilical hernia without men tion of obstruction or gangrene 07/25/2010 09/25/2015 ANXIETY GENERALIZED 08/31/2008 01/10/20 16 Pain in joint, shoulder region 06/22/2008 09/25/2015 Irritable bowel syndrome 07/16/2006 Overview: She has flare ups once in a while. Takes a probiotic once. Last Assessment & Plan: She has flare ups once in a while. Pain in the abdomen, along wit cramping, and bloating. Takes a probiotic once. Drinks raw beats spinach, protein powder, strawberries, almond mild and drinks it. Her constipation was resolved with it. Tobacco use disorder 07/16/2006 016 Overview: Quit 8-06 documented as of this encounter (statuses as of 03/25/2023) [facility] History of Past illness Narrative* Problem Noted Date Diagnosed Date Resolved Date Encounter for colonoscopy du e to history of adenomatous colonic polyps 11/22/2015 11/22/2015 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 11/22/2015 11/22/2015 Panlobular emphysema 04/28/2015 023 Last Assessment & Plan: Assessment: no daily inhaler, no recent PFT's, lungs CTA no exam, former smoker 2ppd/30 years Hematuria 06/09/2013 09/25/2015 Right shoulder strain 03/24/20122015 Carpal tunnel syndrome, right 01/30/2012 01/10/2016 Umbilical hernia without men tion of obstruction or gangrene 07/25/2010 09/25/2015 ANXIETY GENERALIZED 08/31/2008 01/10/20 16 Pain in joint, shoulder region 06/22/2008 09/25/2015 Irritable bowel syndrome 07/16/2006 Overview: She has flare ups once in a while. Takes a probiotic once. Last Assessment & Plan: She has flare ups once in a while. Pain in the abdomen, along wit cramping, and bloating. Takes a probiotic once. Drinks raw beats spinach, protein powder, strawberries, almond mild and drinks it. Her constipation was resolved with it. Tobacco use disorder 07/16/2006 016 Overview: Quit 12-15 documented as of this encounter (statuses as of 04/01/2023) [facility] History of Past illness Narrative* Problem Noted Date Diagnosed Date Resolved Date Encounter for colonoscopy du e to history of adenomatous colonic polyps 11/22/2015 11/22/2015 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 11/22/2015 11/22/2015 Panlobular emphysema 04/28/2015 023 Last Assessment & Plan: Assessment: no daily inhaler, no recent PFT's, lungs CTA no exam, former smoker 2ppd/30 years Hematuria 06/09/2013 09/25/2015 Right shoulder strain 03/24/20122015 Carpal tunnel syndrome, right 01/30/2012 01/10/2016 Umbilical hernia without men tion of obstruction or gangrene 07/25/2010 09/25/2015 ANXIETY GENERALIZED 08/31/2008 01/10/20 16 Pain in joint, shoulder region 06/22/2008 09/25/2015 Irritable bowel syndrome 07/16/2006 Overview: She has flare ups once in a while. Takes a probiotic once. Last Assessment & Plan: She has flare ups once in a while. Pain in the abdomen, along wit cramping, and bloating. Takes a probiotic once. Drinks raw beats spinach, protein powder, strawberries, almond mild and drinks it. Her constipation was resolved with it. Tobacco use disorder 07/16/2006 016 Overview: Quit 12-15 documented as of this encounter (statuses as of 04/11/2023) [facility] History of Past illness Narrative* Problem Noted Date Diagnosed Date Resolved Date Encounter for colonoscopy du e to history of adenomatous colonic polyps 11/22/2015 11/22/2015 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 11/22/2015 11/22/2015 Panlobular emphysema 04/28/2015 023 Last Assessment & Plan: Assessment: no daily inhaler, no recent PFT's, lungs CTA no exam, former smoker 2ppd/30 years Hematuria 06/09/2013 09/25/2015 Right shoulder strain 03/24/20122015 Carpal tunnel syndrome, right 01/30/2012 01/10/2016 Umbilical hernia without men tion of obstruction or gangrene 07/25/2010 09/25/2015 ANXIETY GENERALIZED 08/31/2008 01/10/20 16 Pain in joint, shoulder region 06/22/2008 09/25/2015 Irritable bowel syndrome 07/16/2006 Overview: She has flare ups once in a while. Takes a probiotic once. Last Assessment & Plan: She has flare ups once in a while. Pain in the abdomen, along wit cramping, and bloating. Takes a probiotic once. Drinks raw beats spinach, protein powder, strawberries, almond mild and drinks it. Her constipation was resolved with it. Tobacco use disorder 07/16/2006 016 Overview: Quit 12-15 documented as of this encounter (statuses as of 05/02/2023) [facility] 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- Primary [facility] Diagnosis Encounter for screening mammogram for breast cancer [facility] Diagnosis Pre-operative examination- Primary Preoperative examination, unspecified 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 Atrial fibrillation, unspecified type (HCC) 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 Moses's esophagus History of DVT (deep vein thrombosis) Personal history of venous thrombosis and embolism Primary hypertension Unspecified essential hypertension Panlobular emphysema (HCC) Other emphysema S/P cervical spinal fusion Arthrodesis status Generalized arthritis Basal cell carcinoma (BCC), unspecified site Heart murmur Undiagnosed cardiac murmurs Congestive heart failure, unspecified HF chronicity, unspecified heart failure type (HCC) 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 Cystocele, midline Rectocele Incomplete uterovaginal prolapse Uterovaginal prolapse, incomplete Preoperative examination Preoperative examination, unspecified Overactive bladder Hypertonicity of bladder documented [facility] this encounter [facility]* Diagnosis Educational circumstance- Primary 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 Cystocele, midline Rectocele Incomplete uterovaginal prolapse Uterovaginal prolapse, incomplete Preoperative examination Preoperative examination, unspecified Overactive bladder Hypertonicity of bladder documented in this encounter [facility]* Diagnosis 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 Cystocele, midline Rectocele Incomplete uterovaginal prolapse Uterovaginal prolapse, incomplete Preoperative examination Preoperative examination, unspecified Overactive bladder Hypertonicity of bladder 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 Cystocele, midline Rectocele Incomplete uterovaginal prolapse Uterovaginal prolapse, incomplete Preoperative examination Preoperative examination, unspecified Overactive bladder Hypertonicity of bladder documented in this encounter [facility]* Diagnosis Incomplete uterovaginal prolapse- Primary Uterovaginal prolapse, incomplete Cystocele, midline 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 Rectocele Preoperative examination Preoperative examination, unspecified Overactive bladder Hypertonicity of bladder 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 Cystocele, midline Rectocele Incomplete uterovaginal prolapse Uterovaginal prolapse, incomplete Preoperative examination Preoperative examination, unspecified Overactive bladder Hypertonicity of bladder documented in this encounter [facility] note* Diagnosis Congestive heart failure, unspecified HF chronicity, unspecified heart failure type (HCC)- Primary Need for influenza vaccination Need for prophylactic vaccination and inoculation against influenza Frequency of urination Urinary frequency Primary hypertension Unspecified essential hypertension Generalized arthritis Urinary tract infection without hematuria, site unspecified documented in this encounter [facility] note* Diagnosis Sore throat- Primary Acute pharyngitis Chills with fever Fever, unspecified 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 Moses's esophagus documented in this encounter [facility] note* Diagnosis Pneumonia due to infectious organism, unspecified laterality, unspecified part of lung- Primary Congestive heart failure, unspecified HF chronicity, unspecified heart failure type (HCC) Gastroesophageal reflux disease, unspecified whether esophagitis present documented in this encounter [facility] note* Diagnosis Pneumonia due to infectious organism, unspecified laterality, unspecified part of lung- Primary documented in this encounter [facility] note* Diagnosis Abdominal pain, unspecified abdominal location- Primary Difficulty breathing Other dyspnea and respiratory abnormality documented in this encounter [facility] note* Diagnosis Hiatal hernia with GERD without esophagitis- Primary 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 Msoes's esophagus Encounter for therapeutic drug monitoring Atrial fibrillation, unspecified type (HCC) documented in this encounter [facility] note* Diagnosis Elevated LFTs- Primary Other abnormal blood chemistry documented in this encounter [facility] note* Diagnosis Shortness of breath- Primary Fever, unspecified fever cause Other fatigue Elevated liver enzymes Other nonspecific abnormal serum enzyme levels Decreased appetite Anorexia Foul smelling urine Other nonspecific finding on examination of urine Dysphagia, unspecified type Hiatal hernia with GERD without esophagitis 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 Moses's esophagus Bilateral lower extremity edema Edema documented in this encounter [facility] note* Diagnosis Fever, unspecified fever cause- Primary Hiatal hernia with GERD without esophagitis documented in this encounter [facility] note* Diagnosis Epigastric pain- Primary Abdominal pain, epigastric Hiatal hernia with GERD without esophagitis Bowel habit changes Other symptoms involving digestive system Other fatigue Nausea Nausea alone Fever, unspecified fever cause documented in this encounter [facility] note* Diagnosis Personal history of colonic polyps- Primary Hiatal hernia with GERD without esophagitis Dysphagia, unspecified type Incisional hernia, without obstruction or gangrene Incisional hernia without mention of obstruction or gangrene documented in this encounter [facility] note* Diagnosis Abdominal pain, unspecified abdominal location- Primary Other fatigue Fever, unspecified fever cause Chills Chills (without fever) Vitamin B12 deficiency Other B-complex deficiencies Vitamin D deficiency Unspecified vitamin D deficiency documented in this encounter [facility] note* Diagnosis Congestive heart failure, unspecified HF chronicity, unspecified heart failure type (HCC)- Primary Atrial fibrillation, unspecified type (HCC) Primary hypertension Unspecified essential hypertension documented in this encounter [facility] note* Diagnosis Incisional hernia, without obstruction or gangrene- Primary Incisional hernia without mention of obstruction or gangrene Dysphagia, unspecified type Hiatal hernia with GERD without esophagitis Personal history of colonic polyps documented in this encounter [facility] note* Diagnosis PAD (peripheral artery disease) (HCC)- Primary Peripheral vascular disease, unspecified documented in this encounter [facility] note* Diagnosis Cerebrovascular accident (CVA), unspecified mechanism (HCC)- Primary documented in this encounter [facility] note* Diagnosis Bradycardia- Primary Other specified cardiac dysrhythmias Acute non-recurrent maxillary sinusitis Congestive heart failure, unspecified HF chronicity, unspecified heart failure type (HCC) Atrial fibrillation, unspecified type (HCC) Panlobular emphysema (HCC) Other emphysema 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 Moses's esophagus documented in this encounter [facility] note* Diagnosis Peripheral arterial disease (HCC)- Primary Peripheral vascular disease, unspecified documented in this encounter [facility] note* Diagnosis Lumbar spondylosis- Primary Lumbosacral spondylosis without myelopathy TIA (transient ischemic attack) Unspecified transient cerebral ischemia documented in this encounter [facility] note* Diagnosis TIA (transient ischemic attack) Unspecified transient cerebral ischemia documented in this encounter [facility] note* Diagnosis Peripheral arterial disease (HCC)- Primary Peripheral vascular disease, unspecified documented in this encounter [facility] note* Diagnosis Atrial fibrillation, unspecified type (HCC)- Primary Generalized arthritis Primary hypertension Unspecified essential hypertension Congestive heart failure, unspecified HF chronicity, unspecified heart failure type (HCC) documented in this encounter [facility] note* Diagnosis Fever, unspecified fever cause- Primary Cough, unspecified type Wheezing Sore throat Acute pharyngitis Bilateral lower extremity edema Edema Congestive heart failure, unspecified HF chronicity, unspecified heart failure type (HCC) documented in this encounter [facility] note* Diagnosis Left lower quadrant abdominal pain- Primary Right lower quadrant abdominal tenderness without rebound tenderness Bowel habit changes Other symptoms involving digestive system Blood in stool documented in this encounter [facility] note* Diagnosis Right lower quadrant abdominal pain- Primary Abdominal pain, right lower quadrant Left lower quadrant abdominal pain Blood in stool Bowel habit changes Other symptoms involving digestive system Stool mucus Nonspecific abnormal finding in stool contents Dark stools Nonspecific abnormal finding in stool contents documented in this encounter [facility] note* Diagnosis C. difficile diarrhea- Primary Intestinal infection due to clostridium difficile documented in this encounter [facility] note* Diagnosis History of recent hospitalization- Primary Personal history of unspecified disease Congestive heart failure, unspecified HF chronicity, unspecified heart failure type (HCC) Pneumonia due to infectious organism, unspecified laterality, unspecified part of lung Chronic obstructive pulmonary disease, unspecified COPD type (HCC) Function kidney decreased Unspecified disorder of kidney and ureter C. difficile diarrhea Intestinal infection due to clostridium difficile On home oxygen therapy Dependence on supplemental oxygen documented in this encounter [facility] note* Diagnosis Pneumonia due to infectious organism, unspecified laterality, unspecified part of lung- Primary Atrial fibrillation, unspecified type (HCC) Abnormal EKG Nonspecific abnormal electrocardiogram (ECG) (EKG) Congestive heart failure, unspecified HF chronicity, unspecified heart failure type (HCC) documented in this encounter [facility] note* Diagnosis SOB (shortness of breath) Shortness of breath documented in this encounter [facility] note* Diagnosis Stage 3 severe COPD by GOLD classification ([facility])- Primary Acute bronchitis, unspecified organism Former cigarette smoker Personal history of tobacco use, presenting hazards to health Paroxysmal atrial fibrillation (HCC) Atrial fibrillation documented in this encounter [facility] note* Diagnosis Atrial fibrillation, unspecified type (HCC)- Primary Bradycardia Other specified cardiac dysrhythmias Congestive heart failure, unspecified HF chronicity, unspecified heart failure type (HCC) Shortness of breath Recurrent pneumonia Pneumonia, organism unspecified Subacute cough Cough On home oxygen therapy Dependence on supplemental oxygen History of recent hospitalization Personal history of unspecified disease Acute pain of right shoulder Fall, initial encounter documented in this encounter [facility] note* Diagnosis Primary hypertension- Primary Unspecified essential hypertension Chronic congestive heart failure, unspecified heart failure type (HCC) Chronic obstructive pulmonary disease, unspecified COPD type (HCC) Paroxysmal atrial fibrillation (HCC) Atrial fibrillation Encounter for immunization Need for other specified prophylactic vaccination against single bacterial disease documented in this encounter [facility] note* Diagnosis Paroxysmal atrial fibrillation (HCC)- Primary Atrial fibrillation Chronic obstructive pulmonary disease with acute exacerbation (HCC) Obstructive chronic bronchitis with exacerbation History of Clostridium difficile colitis Personal history of other diseases of digestive system Chronic congestive heart failure, unspecified heart failure type (HCC) documented in this encounter [facility] note* Diagnosis Generalized arthritis documented in this encounter [facility] note* Diagnosis Chronic obstructive pulmonary disease, unspecified COPD type (HCC)- Primary Generalized arthritis [facility]* Diagnosis Hiatal hernia with GERD without esophagitis Personal history of colonic polyps documented in this encounter [facility] note* Diagnosis Left lower quadrant abdominal pain Right lower quadrant abdominal tenderness without rebound tenderness Bowel habit changes Other symptoms involving digestive system Blood in stool documented in this encounter [facility] note* Diagnosis COVID-19 virus infection- Primary documented in this encounter [facility] note* Diagnosis Acute non-recurrent sinusitis, unspecified location- Primary documented in this encounter [facility] for referral (narrative)* Diagnostic Procedure Only (Routine) - Pending Review Specialty Diagnoses / Procedures Referred By Dimitri larios Referred To Contact BR IMAGING Diagnoses Encounter for screening mammogram for breast cancer Procedures CLARIBEL SCREENING SCREENING MAMMOGRAPHY BI 2-VIEW BREAST INC CAD Brandon Manley MD [facility] [place] [address] [facility] [address] [place] [address] Referral ID Status Reason Start Date Expiration Date Visits Requested Visits Authorized [id number] Pending Review Auto-Generat ed Referral 11/07/2021 12/07/2022 1 1 [facility] for referral (narrative)* Diagnostic Procedure Only (Routine) - Closed Specialty Diagnoses / Procedures Referred By Dimitri larios Referred To Contact US IMAGING Diagnoses 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 Cystocele, midline Rectocele Incomplete uterovaginal prolapse Preoperative examination Overactive bladder Procedures US FEMALE PELVIS TRANSVAG US TRANSVAGINAL Qiana Pizarro MD [address] [place] [address] Us Imaging Referral ID Status Reason Start Date Expiration Date V isits Requested Visits Authorized [id number] Closed Auto-Generate d Referral 12/04/2021 01/03/2023 1 1 T [facility] for referral (narrative)* Diagnostic Procedure Only (Routine) - Pending Review Specialty Diagnoses / Procedures Referred By Dimitri t Referred To Contact XR IMAGING Diagnoses Hiatal hernia with GERD without esophagitis Procedures XR MODIFIED BARIUM SWALLOW W SPEECH THERAPY RADIOLOGIC EXAM SWALLOW FUNCTION CONTRAST STUDY Hodan Stevens APRN.CNP [address] [place] [address] [facility] [address] [place] [address] Referral ID Status Reason Start Date Expiration Date Visits Requested Visits Authorized [id number] Pending Review Auto-Generat ed Referral 2 05/29/2023 1 1 [facility] for referral (narrative)* Diagnostic Procedure Only (Routine) - Authorized Specialty Diagnoses / Procedures [facility] Diagnoses Elevated LFTs Procedures US ABD RT UPPER QUADRANT US ABDOMINAL REAL TIME W/IMAGE LIMITED Hodan Stevens APRN.CNP [address] [place] [address] Us Imaging Referral ID Status Reason Start Date Expiration Date Visits Requested Visits Authorized [id number] Authorized Auto-Generat ed Referral 2 05/30/2023 1 1 [facility] for referral (narrative)* Outpatient Procedure (Routine) - Authorized Specialty Diagnoses / Procedures [facility] Diagnoses Peripheral arterial disease (HCC) Procedures PVR LEG W/EXC LIANA VAS LAB N-INVAS PHYSIOLOGIC STD LXTR ART COMPL BI Zuleyma Meredith DO [address] [place] [address] [facility] [place] [address] [place] [address] Referral ID Status Reason Start Date Expiration Date Visits Requested Visits Authorized [id number] Authorized Auto-Generat ed Referral 09/03/2022 09/03/2023 1 1 [facility] for referral (narrative)* Outpatient Procedure (Routine) - Closed Specialty Diagnoses / Procedures Referred By Contac t Referred To Contact [facility] Diagnoses SOB (shortness of breath) Procedures LUNG DIFFUSION CAPACITY (DLCO) DIFFUSING CAPACITY Sylvia Gamboa MD [address] [place] [address] [address] Referral ID Status Reason Start Date Expiration Date V isits Requested Visits Authorized [id number] Closed Auto-Generate d Referral 01/27/2023 02/26/2024 1 1 * Outpatient Procedure (Routine) - Closed Specialty Diagnoses / Procedures Referred By Contac t Referred To Contact [facility] Diagnoses SOB (shortness of breath) Procedures SPIROMETRY WITH DILATOR IF OBSTRUCTED BRNCDILAT RSPSE SPMTRY PRE&POST-BRNCDILAT ADMN Sylvia Gamboa MD [address] [facility] [place] [address] [place] [id number] Referral ID Status Reason Start Date Expiration Date V isits Requested Visits Authorized [id number] Closed Auto-Generate d Referral 01/27/2023 05/11/2023 1 1 [facility] Advance Directives No Advanced Directives Records FoundDocuments on File Type Date Recorded Patient Cuff Stitcher Expl anation Advance Directive(s) 02/28/2016 12:15 PM Advance Directive(s) 02/21/2016 9:18 AM Advance Directive(s) 11/22/2015 12:01 PM Advance Directive(s) 11/10/2015 11:55 AM Documents on File Type Date Recorded Patient Cuff Stitcher Expl anation Advance Directive(s) 02/28/2016 12:15 PM Advance Directive(s) 02/21/2016 9:18 AM Advance Directive(s) 11/22/2015 12:01 PM Advance Directive(s) 11/10/2015 11:55 AM Reason for Referral Specialty Diagnoses / Procedures Referred By Contac t Referred To Contact Diagnoses 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 Procedures CONSULT TO FEMALE UROLOGY/URO GYNECOLOGY OFFICE/OUTPATIENT [facility] 60-74 MINUTES Lindsay Gongora MD [address] [place] [address] Referral ID Status Reason Start Date Expiration Date Visits Requested Visits Authorized [id number] Authorized PCP Requested Referral 09/21/2021 09/21/2022 1 1 Specialty Diagnoses / Procedures Referred By Contac t Referred To Contact Gastroenterology Diagnoses Elevated liver enzymes Decreased appetite Hiatal hernia with GERD without esophagitis 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 Procedures CONSULT TO GASTROENTEROLOGY OFFICE/OUTPATIENT [facility] 60-74 MINUTES Older, SORAYA Snow.CMM PROGRAMMER [address] [place] [address] Referral ID Status Reason Start Date Expiration Date Visits Requested Visits Authorized [id number] Authorized PCP Requested Referral 05/15/2022 05/15/2023 1 1 Specialty Diagnoses / Procedures Referred By Contac t Referred To Contact General Surgery Diagnoses Hiatal hernia with GERD without esophagitis Procedures CONSULT TO GENERAL SURGERY OFFICE/OUTPATIENT [facility] 60-74 MINUTES Older, SORAYA Snow.CMM PROGRAMMER [address] [place] [phone] Referral ID Status Reason Start Date Expiration Date Visits Requested Visits Authorized [id number] Authorized PCP Requested Referral 05/17/2022 05/17/2023 1 1 Specialty Diagnoses / Procedures Referred By Contac t Referred To Contact Infectious Diseases Diagnoses Fever, unspecified fever cause Procedures CONSULT TO INFECTIOUS DISEASES OFFICE/OUTPATIENT [facility] 60-74 MINUTES Older, SORAYA Snow.CMM PROGRAMMER [address] [place] [phone] Referral ID Status Reason Start Date Expiration Date Visits Requested Visits Authorized [id number] Authorized PCP Requested Referral 05/22/2022 05/22/2023 1 1 Specialty Diagnoses / Procedures Referred By Contac t Referred To Contact CT IMAGING Diagnoses Hiatal hernia with GERD without esophagitis Personal history of colonic polyps Procedures CT ABD/PEL WO IVCON CT ABD & PELVIS W/O CONTRAST Katheryn Stokes MD [address] [place] [address] Ct Imaging Referral ID Status Reason Start Date Expiration Date Visits Requested Visits Authorized [id number] Pending Review Auto-Generat ed Referral 05/23/2022 06/22/2023 1 1 Specialty Diagnoses / Procedures Referred By Contac t Referred To Contact DIGESTIVE DISEASE ALPHA Diagnoses Hiatal hernia with GERD without esophagitis Personal history of colonic polyps Procedures COLONOSCOPY SCREENING COLONOSCOPY FLX DX W/COLLJ SPEC WHEN PFRMD Katheryn Stokes MD [address] [place] [address] [address] Referral ID Status Reason Start Date Expiration Date Visits Requested Visits Authorized [id number] Authorized Auto-Generat ed Referral 05/23/2022 05/23/2023 1 1 Specialty Diagnoses / Procedures Referred By Contac t Referred To Contact DIGESTIVE DISEASE ALPHA Diagnoses Hiatal hernia with GERD without esophagitis Personal history of colonic polyps Procedures EGD DIAGNOSTIC ESOPHAGOGASTRODUODENOSC OPY TRANSORAL DIAGNOSTIC Katheryn Stokes MD [address] [facility] [place] [address] [address] Referral ID Status Reason Start Date Expiration Date Visits Requested Visits Authorized [id number] Authorized Auto-Generat ed Referral 05/23/2022 05/23/2023 1 1 Specialty Diagnoses / Procedures Referred By Contac t Referred To Contact Vascular Surgery Diagnoses PAD (peripheral artery disease) (HCC) Procedures CONSULT TO VASCULAR SURGERY OFFICE/OUTPATIENT [facility] 60-74 MINUTES Brandon Manley MD [address] [place] [address] Referral ID Status Reason Start Date Expiration Date Visits Requested Visits Authorized [id number] Pending Review PCP Requested Referral 07/23/2022 07/19/2023 1 1 Specialty Diagnoses / Procedures Referred By Contac t Referred To Contact Neurology Diagnoses Cerebrovascular accident (CVA), unspecified mechanism (HCC) Gwendolyn Ballard CNP [address] [place] [address] [facility] Referral ID Status Reason Start Date Expiration Date V isits Requested Visits Authorized [id number] Pending Review 08/19/2022 08/19/2023 1 1 Specialty Diagnoses / Procedures Referred By Contac t Referred To Contact Diagnoses Lumbar spondylosis Talia Haque MD [address] [facility] [address] [place] [address] [facility] [address] [place] [id number] Referral ID Status Reason Start Date Expiration Date Visits Requested Visits Authorized [id number] Pending Review Patient Preference 09/13/2022 09/13/2023 1 1 Specialty Diagnoses / Procedures Referred By Contac t Referred To Contact CT IMAGING Diagnoses Left lower quadrant abdominal pain Right lower quadrant abdominal tenderness without rebound tenderness Bowel habit changes Blood in stool Procedures CT ABD/PEL W IVCON CT ABD & PELVIS W/CONTRAST Gwendolyn Ballard APRN.CMM PROGRAMMER [address] [place] [address] [place] [address] Referral ID Status Reason Start Date Expiration Date Visits Requested Visits Authorized [id number] Waiting for Online Response Auto-Generat ed Referral 12/26/2022 01/25/2024 2 2 Specialty Diagnoses / Procedures Referred By Contac t Referred To Contact Cardiology / [facility] [place] Diagnoses Atrial fibrillation, unspecified type (HCC) Bradycardia Shortness of breath Congestive heart failure, unspecified HF chronicity, unspecified heart failure type (HCC) On home oxygen therapy Procedures CONSULT TO CARDIOLOGY OFFICE/OUTPATIENT [facility] MDM 60-74 MINUTES Gwendolyn Ballard APRN.CMM PROGRAMMER [address] [place] [address] [facility] [address] [place] [address] Referral ID Status Reason Start Date Expiration Date Visits Requested Visits Authorized [id number] Pending Review PCP Requested Referral OON/Self Pay Override 01/23/2023 01/23/2024 1 1 Specialty Diagnoses / Procedures Referred By Contac t Referred To Contact XR IMAGING Diagnoses Fall, initial encounter Acute pain of right shoulder Procedures XR SHOULDER [id number] AP/TRUE AP RIGHT RADEX SHOULDER COMPLETE MINIMUM 2 VIEWS Gwendolyn Ballard APRN.CMM PROGRAMMER [address] [place] [address] [place] [address] Referral ID Status Reason Start Date Expiration Date V isits Requested Visits Authorized [id number] Closed Auto-Generate d Referral 01/23/2023 02/22/2024 1 1 Specialty Diagnoses / Procedures Referred By Contac t Referred To Contact [facility] Diagnoses Atrial fibrillation, unspecified type (HCC) Bradycardia Procedures ECG COMPLETE ECG ROUTINE ECG W/LEAST 12 LDS W/I&R Gwendolyn Ballard APRN.CMM PROGRAMMER [address] [place] [address] [facility] [place] [address] [place] [address] Referral ID Status Reason Start Date Expiration Date V isits Requested Visits Authorized [id number] Closed Auto-Generate d Referral 01/23/2023 01/23/2024 1 1 Specialty Diagnoses / Procedures Referred By Contac t Referred To Contact CT IMAGING Diagnoses Hiatal hernia with GERD without esophagitis Personal history of colonic polyps Procedures CT ABD/PEL WO IVCON CT ABD & PELVIS W/O CONTRAST Katheryn Stokes MD [address] [place] [address] Ct [facility] [place] [address] Referral ID Status Reason Start Date Expiration Date V isits Requested Visits Authorized [id number] Closed Auto-Generate d Referral 05/24/2022 05/11/2023 2 2 Referral ID Status Reason Start Date Expiration Date V isits Requested Visits Authorized [id number] Closed Auto-Generate d Referral 12/26/2022 01/25/2023 1 1 Summary Purpose Family History No Family History Records FoundNo Family History Records Found Health Concerns Infection Onset Date Last Indicated Resolved Time C. difficile 12/28/2022 12/28/2022 Infection Onset Date Last Indicated Resolved Time C. difficile 12/28/2022 12/28/2022 01/27/2023 8:51 PM EDT Additional Source Comments Source Comments (unrecognize d section and content) In the event this informatio n is protected by the Federal Confidentiality of Alcohol and Drug Abuse Patient Records regulations: The Federal rules restrict any use of the information to criminally investigate or prosecute any alcohol or drug abuse patient.[facility] the event this information is protected by the Federal Confidentiality of Alcohol and Drug Abuse Patient Records regulations: The Federal rules restrict any use of the information to criminally investigate or prosecute any alcohol or drug abuse patient.[facility] the event this information is protected by the Federal Confidentiality of Alcohol and Drug Abuse Patient Records regulations: The Federal rules restrict any use of the information to criminally investigate or prosecute any alcohol or drug abuse patient.[facility] the event this information is protected by the Federal Confidentiality of Alcohol and Drug Abuse Patient Records regulations: The Federal rules restrict any use of the information to criminally investigate or prosecute any alcohol or drug abuse patient.[facility] the event this information is protected by the Federal Confidentiality of Alcohol and Drug Abuse Patient Records regulations: The Federal rules restrict any use of the information to criminally investigate or prosecute any alcohol or drug abuse patient.[facility] the event this information is protected by the Federal Confidentiality of Alcohol and Drug Abuse Patient Records regulations: The Federal rules restrict any use of the information to criminally investigate or prosecute any alcohol or drug abuse patient.[facility] the event this information is protected by the Federal Confidentiality of Alcohol and Drug Abuse Patient Records regulations: The Federal rules restrict any use of the information to criminally investigate or prosecute any alcohol or drug abuse patient.[facility] the event this information is protected by the Federal Confidentiality of Alcohol and Drug Abuse Patient Records regulations: The Federal rules restrict any use of the information to criminally investigate or prosecute any alcohol or drug abuse patient.[facility] the event this information is protected by the Federal Confidentiality of Alcohol and Drug Abuse Patient Records regulations: The Federal rules restrict any use of the information to criminally investigate or prosecute any alcohol or drug abuse patient.[facility] the event this information is protected by the Federal Confidentiality of Alcohol and Drug Abuse Patient Records regulations: The Federal rules restrict any use of the information to criminally investigate or prosecute any alcohol or drug abuse patient.[facility] the event this information is protected by the Federal Confidentiality of Alcohol and Drug Abuse Patient Records regulations: The Federal rules restrict any use of the information to criminally investigate or prosecute any alcohol or drug abuse patient.[facility] the event this information is protected by the Federal Confidentiality of Alcohol and Drug Abuse Patient Records regulations: The Federal rules restrict any use of the information to criminally investigate or prosecute any alcohol or drug abuse patient.[facility] the event this information is protected by the Federal Confidentiality of Alcohol and Drug Abuse Patient Records regulations: The Federal rules restrict any use of the information to criminally investigate or prosecute any alcohol or drug abuse patient.[facility] the event this information is protected by the Federal Confidentiality of Alcohol and Drug Abuse Patient Records regulations: The Federal rules restrict any use of the information to criminally investigate or prosecute any alcohol or drug abuse patient.[facility] the event this information is protected by the Federal Confidentiality of Alcohol and Drug Abuse Patient Records regulations: The Federal rules restrict any use of the information to criminally investigate or prosecute any alcohol or drug abuse patient.[facility] the event this information is protected by the Federal Confidentiality of Alcohol and Drug Abuse Patient Records regulations: The Federal rules restrict any use of the information to criminally investigate or prosecute any alcohol or drug abuse patient.[facility] the event this information is protected by the Federal Confidentiality of Alcohol and Drug Abuse Patient Records regulations: The Federal rules restrict any use of the information to criminally investigate or prosecute any alcohol or drug abuse patient.[facility] the event this information is protected by the Federal Confidentiality of Alcohol and Drug Abuse Patient Records regulations: The Federal rules restrict any use of the information to criminally investigate or prosecute any alcohol or drug abuse patient.[facility] the event this information is protected by the Federal Confidentiality of Alcohol and Drug Abuse Patient Records regulations: The Federal rules restrict any use of the information to criminally investigate or prosecute any alcohol or drug abuse patient.[facility] DaytonIn the event this information is protected by the Federal Confidentiality of Alcohol and Drug Abuse Patient Records regulations: The Federal rules restrict any use of the information to criminally investigate or prosecute any alcohol or drug abuse patient.[facility] the event this information is protected by the Federal Confidentiality of Alcohol and Drug Abuse Patient Records regulations: The Federal rules restrict any use of the information to criminally investigate or prosecute any alcohol or drug abuse patient.[facility]In the event this information is protected by the Federal Confidentiality of Alcohol and Drug Abuse Patient Records regulations: The Federal rules restrict any use of the information to criminally investigate or prosecute any alcohol or drug abuse patient.[facility] the event this information is protected by the Federal Confidentiality of Alcohol and Drug Abuse Patient Records regulations: The Federal rules restrict any use of the information to criminally investigate or prosecute any alcohol or drug abuse patient.[facility] DaytonIn the event this information is protected by the Federal Confidentiality of Alcohol and Drug Abuse Patient Records regulations: The Federal rules restrict any use of the information to criminally investigate or prosecute any alcohol or drug abuse patient.[facility] DaytonIn the event this information is protected by the Federal Confidentiality of Alcohol and Drug Abuse Patient Records regulations: The Federal rules restrict any use of the information to criminally investigate or prosecute any alcohol or drug abuse patient.[facility] DaytonIn the event this information is protected by the Federal Confidentiality of Alcohol and Drug Abuse Patient Records regulations: The Federal rules restrict any use of the information to criminally investigate or prosecute any alcohol or drug abuse patient.[facility] DaytonIn the event this information is protected by the Federal Confidentiality of Alcohol and Drug Abuse Patient Records regulations: The Federal rules restrict any use of the information to criminally investigate or prosecute any alcohol or drug abuse patient.[facility] DaytonIn the event this information is protected by the Federal Confidentiality of Alcohol and Drug Abuse Patient Records regulations: The Federal rules restrict any use of the information to criminally investigate or prosecute any alcohol or drug abuse patient.[facility] DaytonIn the event this information is protected by the Federal Confidentiality of Alcohol and Drug Abuse Patient Records regulations: The Federal rules restrict any use of the information to criminally investigate or prosecute any alcohol or drug abuse patient.[facility] DaytonIn the event this information is protected by the Federal Confidentiality of Alcohol and Drug Abuse Patient Records regulations: The Federal rules restrict any use of the information to criminally investigate or prosecute any alcohol or drug abuse patient.[facility] DaytonIn the event this information is protected by the Federal Confidentiality of Alcohol and Drug Abuse Patient Records regulations: The Federal rules restrict any use of the information to criminally investigate or prosecute any alcohol or drug abuse patient.[facility] DaytonIn the event this information is protected by the Federal Confidentiality of Alcohol and Drug Abuse Patient Records regulations: The Federal rules restrict any use of the information to criminally investigate or prosecute any alcohol or drug abuse patient.[facility] DaytonIn the event this information is protected by the Federal Confidentiality of Alcohol and Drug Abuse Patient Records regulations: The Federal rules restrict any use of the information to criminally investigate or prosecute any alcohol or drug abuse patient.[facility] DaytonIn the event this information is protected by the Federal Confidentiality of Alcohol and Drug Abuse Patient Records regulations: The Federal rules restrict any use of the information to criminally investigate or prosecute any alcohol or drug abuse patient.[facility] DaytonIn the event this information is protected by the Federal Confidentiality of Alcohol and Drug Abuse Patient Records regulations: The Federal rules restrict any use of the information to criminally investigate or prosecute any alcohol or drug abuse patient.[facility] DaytonIn the event this information is protected by the Federal Confidentiality of Alcohol and Drug Abuse Patient Records regulations: The Federal rules restrict any use of the information to criminally investigate or prosecute any alcohol or drug abuse patient.[facility] DaytonIn the event this information is protected by the Federal Confidentiality of Alcohol and Drug Abuse Patient Records regulations: The Federal rules restrict any use of the information to criminally investigate or prosecute any alcohol or drug abuse patient.[facility] DaytonIn the event this information is protected by the Federal Confidentiality of Alcohol and Drug Abuse Patient Records regulations: The Federal rules restrict any use of the information to criminally investigate or prosecute any alcohol or drug abuse patient.[facility] DaytonIn the event this information is protected by the Federal Confidentiality of Alcohol and Drug Abuse Patient Records regulations: The Federal rules restrict any use of the information to criminally investigate or prosecute any alcohol or drug abuse patient.[facility] DaytonIn the event this information is protected by the Federal Confidentiality of Alcohol and Drug Abuse Patient Records regulations: The Federal rules restrict any use of the information to criminally investigate or prosecute any alcohol or drug abuse patient.[facility] DaytonIn the event this information is protected by the Federal Confidentiality of Alcohol and Drug Abuse Patient Records regulations: The Federal rules restrict any use of the information to criminally investigate or prosecute any alcohol or drug abuse patient.[facility] DaytonIn the event this information is protected by the Federal Confidentiality of Alcohol and Drug Abuse Patient Records regulations: The Federal rules restrict any use of the information to criminally investigate or prosecute any alcohol or drug abuse patient.[facility] DaytonIn the event this information is protected by the Federal Confidentiality of Alcohol and Drug Abuse Patient Records regulations: The Federal rules restrict any use of the information to criminally investigate or prosecute any alcohol or drug abuse patient.[facility] DaytonIn the event this information is protected by the Federal Confidentiality of Alcohol and Drug Abuse Patient Records regulations: The Federal rules restrict any use of the information to criminally investigate or prosecute any alcohol or drug abuse patient.[facility] DaytonIn the event this information is protected by the Federal Confidentiality of Alcohol and Drug Abuse Patient Records regulations: The Federal rules restrict any use of the information to criminally investigate or prosecute any alcohol or drug abuse patient.[facility] DaytonIn the event this information is protected by the Federal Confidentiality of Alcohol and Drug Abuse Patient Records regulations: The Federal rules restrict any use of the information to criminally investigate or prosecute any alcohol or drug abuse patient.[facility] DaytonIn the event this information is protected by the Federal Confidentiality of Alcohol and Drug Abuse Patient Records regulations: The Federal rules restrict any use of the information to criminally investigate or prosecute any alcohol or drug abuse patient.[facility] DaytonIn the event this information is protected by the Federal Confidentiality of Alcohol and Drug Abuse Patient Records regulations: The Federal rules restrict any use of the information to criminally investigate or prosecute any alcohol or drug abuse patient.[facility] DaytonIn the event this information is protected by the Federal Confidentiality of Alcohol and Drug Abuse Patient Records regulations: The Federal rules restrict any use of the information to criminally investigate or prosecute any alcohol or drug abuse patient.[facility] DaytonIn the event this information is protected by the Federal Confidentiality of Alcohol and Drug Abuse Patient Records regulations: The Federal rules restrict any use of the information to criminally investigate or prosecute any alcohol or drug abuse patient.[facility] DaytonIn the event this information is protected by the Federal Confidentiality of Alcohol and Drug Abuse Patient Records regulations: The Federal rules restrict any use of the information to criminally investigate or prosecute any alcohol or drug abuse patient.[facility] DaytonIn the event this information is protected by the Federal Confidentiality of Alcohol and Drug Abuse Patient Records regulations: The Federal rules restrict any use of the information to criminally investigate or prosecute any alcohol or drug abuse patient.[facility] DaytonIn the event this information is protected by the Federal Confidentiality of Alcohol and Drug Abuse Patient Records regulations: The Federal rules restrict any use of the information to criminally investigate or prosecute any alcohol or drug abuse patient.[facility] DaytonIn the event this information is protected by the Federal Confidentiality of Alcohol and Drug Abuse Patient Records regulations: The Federal rules restrict any use of the information to criminally investigate or prosecute any alcohol or drug abuse patient.[facility] DaytonIn the event this information is protected by the Federal Confidentiality of Alcohol and Drug Abuse Patient Records regulations: The Federal rules restrict any use of the information to criminally investigate or prosecute any alcohol or drug abuse patient.[facility] DaytonIn the event this information is protected by the Federal Confidentiality of Alcohol and Drug Abuse Patient Records regulations: The Federal rules restrict any use of the information to criminally investigate or prosecute any alcohol or drug abuse patient.[facility] DaytonIn the event this information is protected by the Federal Confidentiality of Alcohol and Drug Abuse Patient Records regulations: The Federal rules restrict any use of the information to criminally investigate or prosecute any alcohol or drug abuse patient.[facility] DaytonIn the event this information is protected by the Federal Confidentiality of Alcohol and Drug Abuse Patient Records regulations: The Federal rules restrict any use of the information to criminally investigate or prosecute any alcohol or drug abuse patient.[facility] DaytonIn the event this information is protected by the Federal Confidentiality of Alcohol and Drug Abuse Patient Records regulations: The Federal rules restrict any use of the information to criminally investigate or prosecute any alcohol or drug abuse patient.[facility] DaytonIn the event this information is protected by the Federal Confidentiality of Alcohol and Drug Abuse Patient Records regulations: The Federal rules restrict any use of the information to criminally investigate or prosecute any alcohol or drug abuse patient.[facility] DaytonIn the event this information is protected by the Federal Confidentiality of Alcohol and Drug Abuse Patient Records regulations: The Federal rules restrict any use of the information to criminally investigate or prosecute any alcohol or drug abuse patient.[facility] DaytonIn the event this information is protected by the Federal Confidentiality of Alcohol and Drug Abuse Patient Records regulations: The Federal rules restrict any use of the information to criminally investigate or prosecute any alcohol or drug abuse patient.[facility] DaytonIn the event this information is protected by the Federal Confidentiality of Alcohol and Drug Abuse Patient Records regulations: The Federal rules restrict any use of the information to criminally investigate or prosecute any alcohol or drug abuse patient.[facility] DaytonIn the event this information is protected by the Federal Confidentiality of Alcohol and Drug Abuse Patient Records regulations: The Federal rules restrict any use of the information to criminally investigate or prosecute any alcohol or drug abuse patient.[facility] DaytonIn the event this information is protected by the Federal Confidentiality of Alcohol and Drug Abuse Patient Records regulations: The Federal rules restrict any use of the information to criminally investigate or prosecute any alcohol or drug abuse patient.[facility] DaytonIn the event this information is protected by the Federal Confidentiality of Alcohol and Drug Abuse Patient Records regulations: The Federal rules restrict any use of the information to criminally investigate or prosecute any alcohol or drug abuse patient.[facility] DaytonIn the event this information is protected by the Federal Confidentiality of Alcohol and Drug Abuse Patient Records regulations: The Federal rules restrict any use of the information to criminally investigate or prosecute any alcohol or drug abuse patient.[facility] DaytonIn the event this information is protected by the Federal Confidentiality of Alcohol and Drug Abuse Patient Records regulations: The Federal rules restrict any use of the information to criminally investigate or prosecute any alcohol or drug abuse patient.[facility] DaytonIn the event this information is protected by the Federal Confidentiality of Alcohol and Drug Abuse Patient Records regulations: The Federal rules restrict any use of the information to criminally investigate or prosecute any alcohol or drug abuse patient.[facility] DaytonIn the event this information is protected by the Federal Confidentiality of Alcohol and Drug Abuse Patient Records regulations: The Federal rules restrict any use of the information to criminally investigate or prosecute any alcohol or drug abuse patient.[facility] DaytonIn the event this information is protected by the Federal Confidentiality of Alcohol and Drug Abuse Patient Records regulations: The Federal rules restrict any use of the information to criminally investigate or prosecute any alcohol or drug abuse patient.[facility] DaytonIn the event this information is protected by the Federal Confidentiality of Alcohol and Drug Abuse Patient Records regulations: The Federal rules restrict any use of the information to criminally investigate or prosecute any alcohol or drug abuse patient.[facility] Reason for Visit (unrecogniz ed section and content) Specialty Diagnoses / Procedures Referred By Dimitri larios Referred To Contact Internal Medicine / INTERNAL MEDICINE Diagnoses Follow-up exam 3 month follow up Procedures OFFICE/OUTPATIENT ESTABLISHED HIGH MDM 40-54 MIN 4C EST Brandon Manley MD [address] [place] [address] Brandon Manley MD [address] [place] [address] Referral ID Status Reason Start Date Expiration Date V isits Requested Visits Authorized [id number] Authorized 09/24/2021 05/11/2022 99 99 Reason Comments Results Reason Comments Consult Specialty Diagnoses / Procedures Referred By Contac t Referred To Contact NOTE SPECIALIST Diagnoses CONCERN - PROLAPSE Procedures OFFICE/OUTPATIENT ESTABLISHED LOW MDM 20-29 MIN EST WHI PATIENT Self Lindsay Gongora MD [address] [place] [address] Referral ID Status Reason Start Date Expiration Date Visits Re quested Visits Authorized [id number] Closed 09/21/2021 05/11/2022 1 1 Reason Comments Patient Update Reason Comments Preparations For Surgery Reason Comments Consult Specialty Diagnoses / Procedures Referred By Contact Referred To Contact Anesthesiology / ANESTHESIOLOGY Diagnoses 01/01 no surgery scheduled main Procedures [place] [address] [place] [address] 1, [facility] [address] [place] [address] Referral ID Status Reason Start Date Expiration Date Visits Re quested Visits Authorized [id number] Closed 12/19/2021 03/19/2022 1 1 Reason Comments Pre-Op Visit Specialty Diagnoses / Procedures Referred By Contac t Referred To Contact Gynecology / 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 Diagnoses pre op teaching Procedures PHYS/QHP TELEPHONE EVALUATION 11-20 MIN TELEVISIT Qiana Pizarro MD [address] [place] [address] Irma Adair APRN.CMM PROGRAMMER [address] [place] [address] x2 Referral ID Status Reason Start Date Expiration Date V isits Requested Visits Authorized [id number] Authorized 12/24/2021 05/11/2022 99 99 Reason Comments Radiology US Specialty Diagnoses / Procedures Referred By Contac t Referred To Contact US IMAGING Diagnoses 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 Cystocele, midline Rectocele Incomplete uterovaginal prolapse Preoperative examination Overactive bladder Procedures US FEMALE PELVIS TRANSVAG US TRANSVAGINAL Qiana Pizarro MD [address] [place] [address] Us Imaging Referral ID Status Reason Start Date Expiration Date V isits Requested Visits Authorized [id number] Closed Auto-Generate d Referral 12/04/2021 01/03/2023 1 1 Reason Comments Patient Update Surgery instructions Reason Comments Vaginal Problem Specialty Diagnoses / Procedures Referred By Contac t Referred To Contact NOTE SPECIALIST / UROL SANDING MACHINE 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 Diagnoses pre op Procedures PHYS/QHP TELEPHONE EVALUATION 5-10 MIN PHYS/QHP TELEPHONE EVALUATION 11-20 MIN PHYS/QHP TELEPHONE EVALUATION 21-30 MIN PROVIDER SPECIALTY PHONE CALL MD Juarez Norton, MD Qiana [address] [place] [address] Referral ID Status Reason Start Date Expiration Date Visits Re quested Visits Authorized [id number] Closed 12/07/2021 05/11/2022 1 1 Reason Comments Post Op Pain Reason Onset Date Comments F/U 3 months Immunizations 01/21/2022 Flu vaccination Reason Comments Future Appointment Reason Comments Sore Throat Specialty Diagnoses / Procedures Referred By Contac t Referred To Contact Internal Medicine / INTERNAL MEDICINE Diagnoses sore throat x 3 days Procedures 4C EST Self Brandon Manley MD [address] [place] [address] Referral ID Status Reason Start Date Expiration Date Visits Re quested Visits Authorized [id number] Closed 02/22/2022 05/23/2022 1 1 Reason Comments Recheck Follow up Specialty Diagnoses / Procedures Referred By Contac t Referred To Contact Internal Medicine / INTERNAL MEDICINE Diagnoses Follow up pneumonia Procedures 4C EST Brandon Manley MD [address] [place] [address] Gwendolyn Ballard APRN.CMM PROGRAMMER [address] [place] [address] Referral ID Status Reason Start Date Expiration Date Visits Re quested Visits Authorized [id number] Closed 03/18/2022 06/16/2022 1 1 Reason Comments Patient Question Reason Comments Letter return back to work without restrictions Reason Comments ER F/U SOB and low hr Fleca nide was decreased and heart rate has improved Specialty Diagnoses / Procedures Referred By Contac t Referred To Contact Internal Medicine / INTERNAL MEDICINE Diagnoses ER f/u SOB and low HR, ER decreased Flecanide from 300 to 200mg daily. Procedures 4C EST HOSP/ER FU Self Hodan Stevens APRN.CMM PROGRAMMER [address] [place] [address] Referral ID Status Reason Start Date Expiration Date Visits Re quested Visits Authorized [id number] Closed 04/29/2022 05/11/2022 1 1 Reason Comments Results Reason Comments fax referral to outside Reason Comments Recheck Follow up, review re sults Specialty Diagnoses / Procedures Referred By Contac t Referred To Contact Internal Medicine / INTERNAL MEDICINE Diagnoses Follow-up exam US follow up Procedures OFFICE/OUTPATIENT ESTABLISHED MOD MDM 30-39 MIN 4C Brandon Etienne MD [facility] [place] [address] Gwendolyn Ballard APRN.CMM PROGRAMMER [address] [place] [address] Referral ID Status Reason Start Date Expiration Date Visits Re quested Visits Authorized [id number] Closed 05/09/2022 05/11/2023 1 1 Reason Comments Patient Update Reason Comments Recheck Follow up, review tricia [place] Reason Comments Consult Hiatal hernia Specialty Diagnoses / Procedures Referred By Contac t Referred To Contact General Surgery / GENERAL SURGERY Diagnoses Hiatal hernia with GERD without esophagitis Procedures CONSULT TO GENERAL SURGERY OFFICE/OUTPATIENT NEW HIGH MDM 60-74 MINUTES Gwendolyn Ballard, SORAYA.CMM PROGRAMMER [address] [place] [address] [facility] [address] [place] [address] Referral ID Status Reason Start Date Expiration Date V isits Requested Visits Authorized [id number] Closed PCP Requested Referral 05/17/2022 05/17/2023 1 1 Reason Comments 2 week follow-up Specialty Diagnoses / Procedures Referred By Contac t Referred To Contact Internal Medicine / INTERNAL MEDICINE Diagnoses 2 week follow up Procedures OFFICE/OUTPATIENT ESTABLISHED MOD MDM 30-39 MIN 4C EST Self Brandon Manley MD [address] [place] [address] Referral ID Status Reason Start Date Expiration Date Visits Re quested Visits Authorized [id number] Closed 06/08/2022 05/11/2023 1 1 Reason Comments Follow Up review results, need s a letter for work needs to be specific and elevated blood pressure Reason Comments FMLA Paperwork Reason Comments waitlist 06/11/2022 colon asc' Reason Comments Follow Up Hernia repair Reason Comments Referral Request Reason Comments Neurologic Problem Reason Comments Recheck 2 week CVA also 3 mo nt follow up BP Reason Comments New Patient Reason Comments Cerebrovascular Accident She has her gra nddaughter with her today. She had a stroke in July. Left side weakness, memory and balance. 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 [facility]. Specialty Diagnoses / Procedures Referred By Dimitri Referred To Contact Neurology Diagnoses Cerebrovascular accident (CVA), unspecified mechanism (HCC) Gwendolyn Ballard, ANITHA [address] [place] [address] [facility] Referral ID Status Reason Start Date Expiration Date V isits Requested Visits Authorized [id number] Pending Review 08/19/2022 08/19/2023 1 1 Reason Onset Date Comments Medication Refill 09/13/2022 Reason Comments Established Patient Reason Comments Recheck 2 month Reason Comments Recheck Follow up, fever Reason Comments Hospital F/U SOB, hospital follow up-pneumonia, CHF Reason Comments Follow Up 1 week follow up- in a fib, dizziness, leg swelling, SOB, fatigue Reason Comments Spirometry Specialty Diagnoses / Procedures [facility] Referred To Contact PULMONARY MEDICINE Diagnoses COPD (chronic obstructive pulmonary disease) ([facility]) Procedures OFFICE CONSULTATION NEW/ESTAB PATIENT 15 MIN Gwendolyn Ballard APRN.CMM PROGRAMMER [address] [place] [address] Pulm [facility] [address] [place] [address] Referral ID Status Reason Start Date Expiration Date V isits Requested Visits Authorized [id number] Closed OON/Self Pay Override 01/27/2023 05/11/2023 1 1 Reason Comments New Patient COPD Specialty Diagnoses / Procedures Referred By Contac t Referred To Contact PULMONARY MEDICINE Diagnoses COPD (chronic obstructive pulmonary disease) (HCC) Procedures OFFICE CONSULTATION NEW/ESTAB PATIENT 15 MIN Gwendolyn Ballard APRN.CMM PROGRAMMER [address] [place] [address] Pulm [facility] [address] [place] [address] Reason Comments Hospital F/U Reason Comments Recheck Follow up Reason Comments Follow Up Specialty Diagnoses / Procedures Referred By Contac t Referred To Contact INTERNAL MEDICINE Diagnoses follow up Procedures OFFICE CONSULTATION NEW/ESTAB PATIENT 15 MIN Phil Oden MD [address] [place] [address] [facility] [address] [place] [address] Referral ID Status Reason Start Date Expiration Date Visits Requested Visits Authorized [id number] Pending Review OON/Self Pay Override 01/23/2023 07/22/2023 1 1 Reason Comments Medication Clarification Reason Comments Follow Up return to work [employer] and needs handicap placard Specialty Diagnoses / Procedures Referred By Contac t Referred To Contact FAMILY MEDICINE Diagnoses f/u Procedures f/u Brandon Manley MD [address] [place] [address] [facility] [address] [place] [address] Referral ID Status Reason Start Date Expiration Date Visits Requested Visits Authorized [id number] Pending Review OON/Self Pay Override 02/10/2023 08/09/2023 [address] Specialty Diagnoses / Procedures Referred By Contac t Referred To Contact CT IMAGING Diagnoses Hiatal hernia with GERD without esophagitis Personal history of colonic polyps Procedures CT ABD/PEL WO IVCON CT ABD & PELVIS W/O CONTRAST Katheryn Stokes MD [address] [place] [address] [place] [address] Referral ID Status Reason Start Date Expiration Date V isits Requested Visits Authorized [id number] Closed Auto-Generate d Referral 05/24/2022 05/11/2023 2 2 Specialty Diagnoses / Procedures Referred By Dimitri larios Referred To Contact CT IMAGING Diagnoses Left lower quadrant abdominal pain Right lower quadrant abdominal tenderness without rebound tenderness Bowel habit changes Blood in stool Procedures CT ABD/PEL W IVCON CT ABD & PELVIS W/CONTRAST Gwendolyn Ballard APRN.CMM PROGRAMMER [address] [place] [address] [place] [address] Referral ID Status Reason Start Date Expiration Date V isits Requested Visits Authorized [id number] Closed Auto-Generate d Referral 12/26/2022 01/25/2023 1 1 Reason Comments Covid19 Concern Reason Comments Results Nocturnal oximetry Reason Onset Date Comments Refill Request 03/23/2023 Reason Comments Refill Request Care Teams (unrecognized sec tion and content) Tow Truck Dispatcher Relationship Specialty Start Date End Date Brandon Manley MD [address] [place], [place] [id number] [phone] PCP - General Internal Medicine 09/25/15 Fred, [facility] Specialty Fx Artist Cardiology 03/19/13 Tow Truck Dispatcher Relationship Specialty Start Date End Date Brandon Manley MD [address] [place] [address] PCP - General Internal Medicine 09/25/15 Fred, [facility] Specialty Fx Artist Cardiology 03/19/13 Tow Truck Dispatcher Relationship Specialty Start Date End Date Brandon Manley MD [address] [place] [address] PCP - General Internal Medicine 09/25/15 Fred, [facility] Specialty Fx Artist Cardiology 03/19/13 Tow Truck Dispatcher Relationship Specialty Start Date End Date Brandon Manley MD [address] [place] [address] PCP - General Internal Medicine 09/25/15 Fred, [facility] Specialty Fx Artist Cardiology 03/19/13 Tow Truck Dispatcher Relationship Specialty Start Date End Date Brandon Manley MD [address] [place] [address] PCP - General Internal Medicine 09/25/15 Fred, Maxim S Specialty Fx Artist Cardiology 03/19/13 Tow Truck Dispatcher Relationship Specialty Start Date End Date Brandon Manley MD [address] [place] [address] PCP - General Internal Medicine 09/25/15 Fred, [facility] Specialty Fx Artist Cardiology 03/19/13 Tow Truck Dispatcher Relationship Specialty Start Date End Date Brandon Manley MD [address] [place] [address] PCP - General Internal Medicine 09/25/15 Fred, [facility] Specialty Fx Artist Cardiology 03/19/13 Tow Truck Dispatcher Relationship Specialty Start Date End Date Brandon Manley MD [address] [place] [address] PCP - General Internal Medicine 09/25/15 Fred, [facility] Specialty Fx Artist Cardiology 03/19/13 Tow Truck Dispatcher Relationship Specialty Start Date End Date Brandon Manley MD [address] [place] [address] PCP - General Internal Medicine 09/25/15 Fred, [facility] Specialty Fx Artist Cardiology 03/19/13 Tow Truck Dispatcher Relationship Specialty Start Date End Date Brandon Manley MD [address] [place] [address] PCP - General Internal Medicine 09/25/15 Fred, Maxim S Specialty Fx Artist Cardiology 03/19/13 Tow Truck Dispatcher Relationship Specialty Start Date End Date Brandon Manley MD [address] [place] [address] PCP - General Internal Medicine 09/25/15 Fred, Maxim S Specialty Fx Artist Cardiology 03/19/13 Tow Truck Dispatcher Relationship Specialty Start Date End Date Brandon Manley MD [address] [place] [address] PCP - General Internal Medicine 09/25/15 Fred, [facility] Specialty Fx Artist Cardiology 03/19/13 Tow Truck Dispatcher Relationship Specialty Start Date End Date Brandon Manley MD [address] [place] [address] PCP - General Internal Medicine 09/25/15 Fred, [facility] Specialty Fx Artist Cardiology 03/19/13 Tow Truck Dispatcher Relationship Specialty Start Date End Date Brandon Manley MD [address] [place] [address] PCP - General Internal Medicine 09/25/15 Fred, [facility] Specialty Fx Artist Cardiology 03/19/13 Tow Truck Dispatcher Relationship Specialty Start Date End Date Brandon Manley MD [address] [facility] [address] PCP - General Internal Medicine 09/25/15 Fred, Maxim S Specialty Fx Artist Cardiology 03/19/13 Tow Truck Dispatcher Relationship Specialty Start Date End Date Brandon Manley MD [address] [place] [address] PCP - General Internal Medicine 09/25/15 Fred, Maxim S Specialty Fx Artist Cardiology 03/19/13 Tow Truck Dispatcher Relationship Specialty Start Date End Date Brandon Manley MD [address] [place] [address] PCP - General Internal Medicine 09/25/15 Fred, Maxim S Specialty Fx Artist Cardiology 03/19/13 Tow Truck Dispatcher Relationship Specialty Start Date End Date Brandon Manley MD [address] [place] [address] PCP - General Internal Medicine 09/25/15 Fred, Maxim S Specialty Fx Artist Cardiology 03/19/13 Tow Truck Dispatcher Relationship Specialty Start Date End Date Brandon Manley MD [address] [place] [address] PCP - General Internal Medicine 09/25/15 Fred, Maxim S Specialty Fx Artist Cardiology 03/19/13 Tow Truck Dispatcher Relationship Specialty Start Date End Date Brandon Manley MD [address] [place] [address] PCP - General Internal Medicine 09/25/15 Fred, [facility] Specialty Fx Artist Cardiology 03/19/13 Tow Truck Dispatcher Relationship Specialty Start Date End Date Brandon Manley MD [address] [place] [address] PCP - General Internal Medicine 09/25/15 Fred, [facility] Specialty Fx Artist Cardiology 03/19/13 Tow Truck Dispatcher Relationship Specialty Start Date End Date Brandon Manley MD [address] [place] [address] PCP - General Internal Medicine 09/25/15 Fred, Maxim S Specialty Fx Artist Cardiology 03/19/13 Tow Truck Dispatcher Relationship Specialty Start Date End Date Brandon Manley MD [address] [place] [address] PCP - General Internal Medicine 09/25/15 Fred, [facility] Specialty Fx Artist Cardiology 03/19/13 Tow Truck Dispatcher Relationship Specialty Start Date End Date Brandon Manley MD [address] [place] [address] PCP - General Internal Medicine 09/25/15 Fred, [facility] Specialty Fx Artist Cardiology 03/19/13 Tow Truck Dispatcher Relationship Specialty Start Date End Date Brandon Manley MD [address] [place] [address] PCP - General Internal Medicine 09/25/15 Fred, [facility] Specialty Fx Artist Cardiology 03/19/13 Tow Truck Dispatcher Relationship Specialty Start Date End Date Brandon Manley MD [address] [facility] [place] [address] PCP - General Internal Medicine 08/19/22 Tow Truck Dispatcher Relationship Specialty Start Date End Date Brandon Manley MD [address] [place] [address] PCP - General Internal Medicine 09/25/15 Fred, [facility] Specialty Fx Artist Cardiology 03/19/13 Tow Truck Dispatcher Relationship Specialty Start Date End Date Brandon Manley MD [address] [place] [address] PCP - General Internal Medicine 08/19/22 Tow Truck Dispatcher Relationship Specialty Start Date End Date Brandon Manley MD [address] [place] [address] PCP - General Internal Medicine 08/19/22 Tow Truck Dispatcher Relationship Specialty Start Date End Date Brandon Manley MD [address] [place] [address] PCP - General Internal Medicine 09/25/15 Fred, Maxim S Specialty Fx Artist Cardiology 03/19/13 Tow Truck Dispatcher Relationship Specialty Start Date End Date Brandon Manley MD [address] [place] [address] PCP - General Internal Medicine 09/25/15 Fred, Maxim S Specialty Fx Artist Cardiology 03/19/13 Tow Truck Dispatcher Relationship Specialty Start Date End Date Brandon Manley MD [address] [place] [address] PCP - General Internal Medicine 09/25/15 Fred, Maxim S Specialty Fx Artist Cardiology 03/19/13 Tow Truck Dispatcher Relationship Specialty Start Date End Date Brandon Manley MD [address] [place] [address] PCP - General Internal Medicine 09/25/15 Fred Maxim S Specialty Fx Artist Cardiology 03/19/13 Tow Truck Dispatcher Relationship Specialty Start Date End Date Brandon Manley MD [address] [place] [address] PCP - General Internal Medicine 09/25/15 FredStephen del rioril S Specialty Fx Artist Cardiology 03/19/13 Tow Truck Dispatcher Relationship Specialty Start Date End Date Brandon Manley MD [address] [place] [address] PCP - General Internal Medicine 09/25/15 FredStephen del rioril S Specialty Fx Artist Cardiology 03/19/13 Tow Truck Dispatcher Relationship Specialty Start Date End Date Brandon Manley MD [address] [place] [address] PCP - General Internal Medicine 09/25/15 FredStephen del rioril S Specialty Fx Artist Cardiology 03/19/13 Tow Truck Dispatcher Relationship Specialty Start Date End Date Brandon Manley MD [address] [place] [address] PCP - General Internal Medicine 09/25/15 Fred, [facility] Specialty Fx Artist Cardiology 03/19/13 Tow Truck Dispatcher Relationship Specialty Start Date End Date Brandon Manley MD [address] [place] [address] PCP - General Internal Medicine 09/25/15 Fred, [facility] Specialty Fx Artist Cardiology 03/19/13 Tow Truck Dispatcher Relationship Specialty Start Date End Date Brandon Manley MD [address] [place] [address] PCP - General Internal Medicine 09/25/15 Fred, [facility] Specialty Fx Artist Cardiology 03/19/13 Tow Truck Dispatcher Relationship Specialty Start Date End Date Brandon Manley MD [address] [place] [address] PCP - General Internal Medicine 09/25/15 Fred, [facility] Specialty Fx Artist Cardiology 03/19/13 Tow Truck Dispatcher Relationship Specialty Start Date End Date Brandon Manley MD [address] [place] [address] PCP - General Internal Medicine 09/25/15 Fred, Maxim S Specialty Fx Artist Cardiology 03/19/13 Tow Truck Dispatcher Relationship Specialty Start Date End Date Brandon Manley MD [address] [place] [address] PCP - General Internal Medicine 09/25/15 Maxim Ibarra MD Specialty Fx Artist Cardiology 03/19/13 Tow Truck Dispatcher Relationship Specialty Start Date End Date Brandon Manley MD [address] [place] [address] PCP - General Internal Medicine 09/25/15 Maxim Ibarra MD Specialty Fx Artist Cardiology 03/19/13 Tow Truck Dispatcher Relationship Specialty Start Date End Date Brandon Manley MD [address] [place] [address] PCP - General Internal Medicine 09/25/15 Maxim Ibarra MD Specialty Fx Artist Cardiology 03/19/13 Tow Truck Dispatcher Relationship Specialty Start Date End Date Brandon Manley MD [address] [place] [address] PCP - General Internal Medicine 09/25/15 Maxim Ibarra MD Specialty Fx Artist Cardiology 03/19/13 Tow Truck Dispatcher Relationship Specialty Start Date End Date Brandon Manley MD [address] [place] [address] PCP - General Internal Medicine 09/25/15 Maxim Ibarra MD Specialty Fx Artist Cardiology 03/19/13 Tow Truck Dispatcher Relationship Specialty Start Date End Date Brandon Manley MD [address] [place] [address] PCP - General Internal Medicine 09/25/15 Maxim Ibarra MD Specialty Fx Artist Cardiology 03/19/13 Tow Truck Dispatcher Relationship Specialty Start Date End Date Brandon Manley MD [address] [place] [address] PCP - General Internal Medicine 09/25/15 Maxim Ibarra MD Specialty Fx Artist Cardiology 03/19/13 Tow Truck Dispatcher Relationship Specialty Start Date End Date Brandon Manley MD [address] [place] [address] PCP - General Internal Medicine 09/25/15 Maxim Ibarra MD Specialty Fx Artist Cardiology 03/19/13 Tow Truck Dispatcher Relationship Specialty Start Date End Date Brandon Manley MD [address] [facility] [place] [address] PCP - General Internal Medicine 09/25/15 Maxim Ibarra MD Specialty Fx Artist Cardiology 03/19/13 Tow Truck Dispatcher Relationship Specialty Start Date End Date Brandon Manley MD [address] [place] [address] PCP - General Internal Medicine 09/25/15 Maxim Ibarra MD Specialty Fx Artist Cardiology 03/19/13 Tow Truck Dispatcher Relationship Specialty Start Date End Date Brandon Manley MD [address] [facility] [place] [address] PCP - General Internal Medicine 09/25/15 Maxim Ibarra MD Specialty Fx Artist Cardiology 03/19/13 INFORMATION SOURCE (unrecogn ized section and content) DATE CREATED AUTHOR [facility] FOR RECORDS PERTAINING TO PATIENTS WHO ARE OR HAVE BEEN ENROLLED IN A CHEMICAL DEPENDENCY/SUBSTANCEABUSE PROGRAM, SOME INFORMATION MAY BE OMITTED. This clinical summary was aggregated from multiple sources. Caution should be exercised in using it in the provision of clinical care. This summary normalizes information from multiple sources, and as a consequence, information in this document may materially change the coding, format and clinical context of patient data. In addition, data may be omitted in some cases. CLINICAL DECISIONS SHOULD BE BASED ON THE PRIMARY CLINICAL RECORDS. [email or web address] [facility]. provides no warranty or guarantee of the accuracy or completeness of information in this document.
== END | disposition home or self-care (01) ==
LOC: PSN 10:40
PROVIDERS: PCP Internal Medicine; Referring Provider Physician Assistant Medical; Visit Provider Physician Assistant Medical
DX: I48.0 Paroxysmal atrial fibrillation (principal); R00.2 Palpitations
CPT/HCPCS: 93225; 93226

== ENCOUNTER → 2023-06-17 | Outpatient (CLI) | payer OTHER, MEDICARE, SELFPAY ==
[2023-06-17 16:52] LABS: Anion Gap 3 (5-15); BUN 35 mg/dL (7-18); Calcium,Total 9.4 mg/dL (8.5-10.1); Chloride 101 mmol/L (98-107); Creatinine, Serum 1.13 mg/dL (0.55-1.02); EST Glomerular Filtration Rate 50 mL/min (>60); Est Glom Filt Rate - Afr Amer 60 mL/min (>60); Glucose 101 mg/dL (74-106); Potassium 3.8 mmol/L (3.5-5.1); Sodium Level 136 mmol/L (136-145)
--- OUTSIDE RECORDS SUMMARY | 2023-06-17 19:26 | XMS RPT_ITS | CCD ---
Author Name Unknown Address [address] [place] [address] Organization [facility] Care Team Providers Care Director Group Sales Name Role Phone Fred, Cramerton S Unavailable Sindhu HICKS, Brandon Primary Care Provider Humberto Manley MDra Angel Primary Care Provider [phone] Fred, Cramerton S Unavailable Humberto Manley MDra Primary Care Provider [phone] OLDER, GWENDOLYN Referring Unavailable OLDER, GWENDOLYN Admitting Unavailable TALIA HAQUE Attending Unavailable GANTA, BRANDON ANGEL Primary Care Unavailable GANTA, BRANDON ANGEL Primary Care Unavailable TALIA HAQUE Attending Unavailable Fred, Maxim S Unavailable Fred HICKS Cramerton S Unavailable GANTA, BRANDON Primary Care Unavailable [...] Referring Unavailable FARHAT, KATHERYN T Referring Unavailable FARHAT, KATHERYN T [...] Primary Care Unavailable SYLVIA GAMBOA Attending Unavailable GANTA, BRANDON Primary Care Unavailable [...] BRANDON Primary Care Unavailable FARHAT, KATHERYN T Referring Unavailable FARHAT, KATHERYN T Attending Unavailable GANTA, BRANDON Primary Care Unavailable FARHAT, KATHERYN T Attending Unavailable GANTA, BRANDON Primary Care Unavailable GANTA, BRANDON Primary Care Unavailable GANTA, BRANDON Referring Unavailable Allergies Allergy Classification Reported Allergen(s) Allergy Type Date of Onset Reaction(s) Facility (20 sources) Codeine; Translations: [CODEINE] Drug Allergy 6 Vomiting, Nausea and vomiting [facility] (20 sources) dilTIAZem; Translations: [DILTIAZEM HCL] Drug Allergy 5 Swelling [facility] Work Phone: (20 sources) Etodolac; Translations: [ETODOLAC] Drug Allergy 3 Other: See Comments, Palpitations [facility] (20 sources) guaiFENesin / Phenylephrine; Translations: [PHENYLEPHRINE- GUAIFENESIN] Drug Allergy 7 Rash [facility] Work Phone: (20 sources) meloxicam; Translations: [MELOXICAM] Drug Allergy 3 Other: See Comments, Palpitations [facility] Work Phone: (20 sources) Naproxen; Translations: [NAPROXEN] Drug Allergy 1 Swelling [facility] Work Phone: (20 sources) raNITIdine; Translations: [RANITIDINE HCL] Drug Allergy 7 Rash, Swelling [facility] Work Phone: (20 sources) traZODone; Translations: [TRAZODONE] Drug Allergy 5 Other: See Comments, Other (See Comments) [facility] Work Phone: (20 sources) surgical tape adhesives [Other] Propensity to adverse reactions 9 [facility] Work Phone: [phone] (5 sources) Adhesive agent; Translations: [ADHESIVE] Propensity to adverse reactions to drug 7 Rash [facility] (5 sources) dilTIAZem; Translations: [DILTIAZEM] Drug Allergy 5 Swelling [facility] (4 sources) Adhesive Tape; Translations: [ADHESIVE TAPE (ROSINS)] Allergy to substance 3 [facility] Work Phone: (1 source) OTHER; Translations: [OTHER] Propensity to adverse reactions (disorder) 9 [facility] Repository Medications Current Medications Medication Drug [...] 11:39-0500 Body weight 61.24 kg 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 Phone: [facility] 03-31-2023 11:39-0500 Diastolic blood pressure 60 mm[Hg] [employer]PER Work Phone: [facility] 03-31-2023 11:39-0500 Heart rate 54 /min 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 Phone: [facility] 03-31-2023 11:39-0500 Respiratory rate 16 /min 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 Phone: [facility] 03-31-2023 11:39-0500 SaO2% (BldA) [Mass fraction] 94 % 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 Phone: [facility] 03-31-2023 11:39-0500 Systolic blood pressure 118 mm[Hg] 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 Phone: [facility] 03-04-2023 11:59-0400 Body height 157.5 cm Davin Utterzbow PA-C Work Phone: [facility] 03-04-2023 11:59-0400 Body temperature 97.81 [degF] Davin Utterzbow PA-C Work Phone: [facility] 03-04-2023 11:59-0400 Body weight 63.96 kg Davin Denbow PA-C Work Phone: [facility] 03-04-2023 11:59-0400 Diastolic blood pressure 70 mm[Hg] Davin Denbow PA-C Work Phone: [facility] 03-04-2023 11:59-0400 Heart rate 61 /min Davin Denbow PA-C Work Phone: [facility] 03-04-2023 11:59-0400 Respiratory rate 12 /min Davin Denbow PA-C Work Phone: [facility] 03-04-2023 11:59-0400 SaO2% (BldA) [Mass fraction] 96 % Davin Denbow PA-C Work Phone: [facility] 03-04-2023 11:59-0400 Systolic blood pressure 138 mm[Hg] Davin Denbow PA-C Work Phone: [facility] 02-10-2023 13:26-0400 Body weight 62.6 kg 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 Phone: [facility] 02-10-2023 13:26-0400 Diastolic blood pressure 78 mm[Hg] 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 Phone: [facility] 02-10-2023 13:26-0400 Heart rate 63 /min 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 Phone: [facility] 02-10-2023 13:26-0400 Respiratory rate 16 /min 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 Phone: [facility] 02-10-2023 13:26-0400 SaO2% (BldA) [Mass fraction] 96 % 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 Phone: [facility] 02-10-2023 13:26-0400 Systolic blood pressure 146 mm[Hg] 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 Phone: [facility] 01-28-2023 19:18-0400 Body height 157.5 cm Phil Oden MD Work Phone: [facility] 01-28-2023 19:18-0400 Body weight 62.14 kg Phil Oden MD Work Phone: [facility] 01-28-2023 19:18-0400 Diastolic blood pressure 78 mm[Hg] Phil Oden MD Work Phone: [facility] 01-28-2023 19:18-0400 Heart rate 58 /min Phil Oden MD Work Phone: [facility] 01-28-2023 19:18-0400 Respiratory rate 16 /min Phil Oden MD Work Phone: [facility] 01-28-2023 19:18-0400 SaO2% (BldA) [Mass fraction] 94 % Phil Oden MD Work Phone: [facility] 01-28-2023 19:18-0400 Systolic blood pressure 130 mm[Hg] Phil Oden MD Work Phone: [facility] 01-27-2023 12:39-0400 Body height 152 cm Sylvia Gamboa MD Work Phone: [facility] 01-27-2023 12:39-0400 Body weight 61.69 kg Sylvia Gamboa MD Work Phone: [facility] 01-27-2023 12:39-0400 Diastolic blood pressure 78 mm[Hg] Sylvia Gamboa MD Work Phone: [facility] 01-27-2023 12:39-0400 Heart rate 58 /min Sylvia Gamboa MD Work Phone: [facility] 01-27-2023 12:39-0400 Respiratory rate 14 /min Sylvia Gamboa MD Work Phone: [facility] 01-27-2023 12:39-0400 SaO2% (BldA) [Mass fraction] 98 % Sylvia Gamboa MD Work Phone: [facility] 01-27-2023 12:39-0400 Systolic blood pressure 130 mm[Hg] Sylvia Gamboa MD Work Phone: [facility] 01-23-2023 14:06-0400 Diastolic blood pressure 62 mm[Hg] 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 Phone: [facility] 01-23-2023 14:06-0400 Systolic blood pressure 136 mm[Hg] 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 Phone: [facility] 01-23-2023 14:05-0400 Body temperature 97.2 [degF] 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 Phone: [facility] 01-23-2023 14:05-0400 Body weight 62.14 kg 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 Phone: [facility] 01-23-2023 14:05-0400 Heart rate 49 /min 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 Phone: [facility] 01-23-2023 14:05-0400 Respiratory rate 16 /min 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 Phone: [facility] 01-23-2023 14:05-0400 SaO2% (BldA) [Mass fraction] 92 % 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 Phone: [facility] 01-10-2023 14:45-0400 Body height 157.5 cm 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 Phone: [facility] 01-10-2023 14:45-0400 Body weight 63.05 kg 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 Phone: [facility] 01-10-2023 14:45-0400 Diastolic blood pressure 62 mm[Hg] 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 Phone: [facility] 01-10-2023 14:45-0400 Heart rate 102 /min 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 Phone: [facility] 01-10-2023 14:45-0400 Respiratory rate 14 /min 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 Phone: [facility] 09-01-2023 14:45-0400 SaO2% (BldA) [Mass fraction] 95 % 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 Phone: [facility] 01-10-2023 14:45-0400 Systolic blood pressure 130 mm[Hg] 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 Phone: [facility] 01-03-2023 14:31-0400 Body height 157.5 cm 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 Phone: [facility] 01-03-2023 14:31-0400 Body weight 62.14 kg 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 Phone: [facility] 01-03-2023 14:31-0400 Diastolic blood pressure 68 mm[Hg] 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 Phone: [facility] 01-03-2023 14:31-0400 Heart rate 69 /min 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 Phone: [facility] 01-03-2023 14:31-0400 Respiratory rate 18 /min 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 Phone: [facility] 01-03-2023 14:31-0400 SaO2% (BldA) [Mass fraction] 92 % 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 Phone: [facility] 01-03-2023 14:31-0400 Systolic blood pressure 130 mm[Hg] 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 Phone: [facility] 12-26-2022 12:40-0400 Body temperature 97.3 [degF] 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 Phone: [facility] 12-26-2022 12:40-0400 Body weight 62.6 kg 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 Phone: [facility] 12-26-2022 12:40-0400 Diastolic blood pressure 80 mm[Hg] 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 Phone: [facility] 12-26-2022 12:40-0400 Heart rate 56 /min 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 Phone: [facility] 12-26-2022 12:40-0400 Respiratory rate 16 /min 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 Phone: [facility] 12-26-2022 12:40-0400 SaO2% (BldA) [Mass fraction] 96 % 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 Phone: [facility] 12-26-2022 12:40-0400 Systolic blood pressure 142 mm[Hg] 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 Phone: [facility] 12-12-2022 11:40-0400 Body temperature 98.01 [degF] 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 Phone: [facility] 12-12-2022 11:40-0400 Body weight 64.41 kg 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 Phone: [facility] 12-12-2022 11:40-0400 Diastolic blood pressure 72 mm[Hg] 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 Phone: [facility] 12-12-2022 11:40-0400 Heart rate 56 /min 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 Phone: [facility] 12-12-2022 11:40-0400 Respiratory rate 16 /min 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 Phone: [facility] 12-12-2022 11:40-0400 SaO2% (BldA) [Mass fraction] 94 % 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 Phone: [facility] 12-12-2022 11:40-0400 Systolic blood pressure 136 mm[Hg] 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 Phone: [facility] 10-31-2022 09:04-0400 Body weight 61.69 kg Brandon Manley MD Work Phone: [facility] 10-31-2022 09:04-0400 Diastolic blood pressure 70 mm[Hg] Brandon Manley MD Work Phone: [facility] 10-31-2022 09:04-0400 Heart rate 54 /min Brandno Manley MD Work Phone: [facility] 10-31-2022 09:04-0400 Respiratory rate 16 /min Brandon Manley MD Work Phone: [facility] 10-31-2022 09:04-0400 SaO2% (BldA) [Mass fraction] 97 % Brandon Manley MD Work Phone: [facility] 10-31-2022 09:04-0400 Systolic blood pressure 130 mm[Hg] Brandon Manley MD Work Phone: [facility] 10-01-2022 10:43-0400 Diastolic blood pressure 66 mm[Hg] Zuleyma Meredith DO Work Phone: [facility] 10-01-2022 10:43-0400 Heart rate 54 /min Zuleyma Meredith DO Work Phone: [facility] 10-01-2022 10:43-0400 SaO2% (BldA) [Mass fraction] 97 % Zuleyma Meredith DO Work Phone: [facility] 10-01-2022 10:43-0400 Systolic blood pressure 140 mm[Hg] Zuleyma Meredith DO Work Phone: [facility] 09-13-2022 10:46-0400 Diastolic blood pressure 53 mm[Hg] Talia Haque MD Work Phone: [facility] 09-13-2022 10:46-0400 Heart rate 46 /min Talia Haque MD Work Phone: [facility] 09-13-2022 10:46-0400 Respiratory rate 16 /min Talia Haque MD Work Phone: [facility] 09-13-2022 10:46-0400 SaO2% (BldA) [Mass fraction] 96 % Talia Haque MD Work Phone: [facility] 09-13-2022 10:46-0400 Systolic blood pressure 180 mm[Hg] Talia Haque MD Work Phone: [facility] 09-03-2022 10:30-0400 Body height 157.5 cm Zuleyma Meredith DO Work Phone: [facility] 09-03-2022 10:30-0400 Body weight 60.33 kg Zuleyma Meredith DO Work Phone: [facility] 09-03-2022 10:30-0400 Diastolic blood pressure 62 mm[Hg] Zuleyma Meredith DO Work Phone: [facility] 09-03-2022 10:30-0400 Heart rate 62 /min Zuleyma Meredith DO Work Phone: [facility] 09-03-2022 10:30-0400 SaO2% (BldA) [Mass fraction] 96 % Zuleyma Meredith DO Work Phone: [facility] 09-03-2022 10:30-0400 Systolic blood pressure 118 mm[Hg] Zuleyma Meredith DO Work Phone: [facility] 08-29-2022 08:17-0400 Body temperature 97.59 [degF] Brandon Manley MD Work Phone: [facility] 08-29-2022 08:17-0400 Body weight 60.78 kg Brandon Manley MD Work Phone: [facility] 08-29-2022 08:17-0400 Diastolic blood pressure 60 mm[Hg] Brandon Manley MD Work Phone: [facility] 08-29-2022 08:17-0400 Heart rate 60 /min Brandon Manley MD Work Phone: [facility] 08-29-2022 08:17-0400 Respiratory rate 16 /min Brandon Manley MD Work Phone: [facility] 08-29-2022 08:17-0400 SaO2% (BldA) [Mass fraction] 99 % Brandon Manley MD Work Phone: [facility] 08-29-2022 08:17-0400 Systolic blood pressure 116 mm[Hg] Brandon Manley MD Work Phone: [facility] 07-18-2022 10:34-0500 Body temperature 97.11 [degF] Katheryn Stokes MD Work Phone: [facility] 07-18-2022 10:34-0500 Diastolic blood pressure 78 mm[Hg] Katheryn Stokes MD Work Phone: [facility] 07-18-2022 10:34-0500 Heart rate 121 /min Katheryn Stokes MD Work Phone: [facility] 07-18-2022 10:34-0500 SaO2% (BldA) [Mass fraction] 95 % Katheryn Stokes MD Work Phone: [facility] 07-18-2022 10:34-0500 Systolic blood pressure 118 mm[Hg] Katheryn Stokes MD Work Phone: [facility] 06-18-2022 14:41-0500 Body height 157.5 cm Brandon Manley MD Work Phone: [facility] 06-18-2022 14:41-0500 Body temperature 97.5 [degF] Brandon Manley MD Work Phone: [facility] 06-18-2022 14:41-0500 Body weight 61.69 kg Brandon Manley MD Work Phone: [facility] 06-18-2022 14:41-0500 Diastolic blood pressure 60 mm[Hg] Brandon Manley MD Work Phone: [facility] 06-18-2022 14:41-0500 Heart rate 53 /min Brandon Manley MD Work Phone: [facility] 06-18-2022 14:41-0500 Respiratory rate 12 /min Brandon Manley MD Work Phone: [facility] 06-18-2022 14:41-0500 SaO2% (BldA) [Mass fraction] 95 % Brandon Manley MD Work Phone: [facility] 06-18-2022 14:41-0500 Systolic blood pressure 132 mm[Hg] Brandon Manley MD Work Phone: [facility] 06-08-2022 10:17-0500 Body temperature 97.81 [degF] Brandon Manley MD Work Phone: [facility] 06-08-2022 10:17-0500 Body weight 61.24 kg Brandon Manley MD Work Phone: [facility] 06-08-2022 10:17-0500 Diastolic blood pressure 68 mm[Hg] Brandon Manley MD Work Phone: [facility] 06-08-2022 10:17-0500 Heart rate 56 /min Brandon Manley MD Work Phone: [facility] 06-08-2022 10:17-0500 SaO2% (BldA) [Mass fraction] 96 % Brandon Manley MD Work Phone: [facility] 06-08-2022 10:17-0500 Systolic blood pressure 158 mm[Hg] Brandon Manley MD Work Phone: [facility] 05-23-2022 14:10-0500 Body height 157.5 cm Katheryn Stokes MD Work Phone: [facility] 05-23-2022 14:10-0500 Body temperature 97.9 [degF] Katheryn Stokes MD Work Phone: [facility] 05-23-2022 14:10-0500 Body weight 61.51 kg Katheryn Stokes MD Work Phone: [facility] 05-23-2022 14:10-0500 Diastolic blood pressure 72 mm[Hg] Katheryn Stokes MD Work Phone: [facility] 05-23-2022 14:10-0500 Heart rate 62 /min Katheryn Stokes MD Work Phone: [facility] 05-23-2022 14:10-0500 SaO2% (BldA) [Mass fraction] 95 % Katheryn Stokes MD Work Phone: [facility] 05-23-2022 14:10-0500 Systolic blood pressure 124 mm[Hg] Katheryn Stokes MD Work Phone: [facility] 05-22-2022 13:55-0500 Diastolic blood pressure 70 mm[Hg] 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 Phone: [facility] 05-22-2022 13:55-0500 Systolic blood pressure 129 mm[Hg] 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 Phone: [facility] 05-22-2022 13:01-0500 Body temperature 97.81 [degF] 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 Phone: [facility] 05-22-2022 13:01-0500 Body weight 60.78 kg 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 Phone: [facility] 05-22-2022 13:01-0500 Heart rate 56 /min 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 Phone: [facility] 05-22-2022 13:01-0500 Respiratory rate 16 /min 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 Phone: [facility] 05-22-2022 13:01-0500 SaO2% (BldA) [Mass fraction] 99 % 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 Phone: [facility] 05-15-2022 11:38-0500 Body temperature 97.59 [degF] 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 Phone: [facility] 05-15-2022 11:38-0500 Body weight 61.24 kg 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 Phone: [facility] 05-15-2022 11:38-0500 Diastolic blood pressure 70 mm[Hg] 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 Phone: [facility] 05-15-2022 11:38-0500 Heart rate 53 /min 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 Phone: [facility] 05-15-2022 11:38-0500 Respiratory rate 16 /min 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 Phone: [facility] 05-15-2022 11:38-0500 SaO2% (BldA) [Mass fraction] 95 % 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 Phone: [facility] 05-15-2022 11:38-0500 Systolic blood pressure 152 mm[Hg] 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 Phone: [facility] 04-29-2022 14:04-0500 Body temperature 99.81 [degF] Hodan Rodney [employer]IC HOU[employer]KEEPER Work Phone: [facility] 04-29-2022 14:04-0500 Body weight 59.88 kg Hodan Rodney [employer]IC HOU[employer]KEEPER Work Phone: [facility] 04-29-2022 14:04-0500 Diastolic blood pressure 64 mm[Hg] Hodan Rodney [employer]IC HOUSEKEEPER Work Phone: [facility] 04-29-2022 14:04-0500 Heart rate 77 /min Hodan Rodney [employer]IC HOUSEKEEPER Work Phone: [facility] 04-29-2022 14:04-0500 Respiratory rate 28 /min Hodan Rodney [employer].DOME[employer]IC HOUSEKEEPER Work Phone: [facility] 04-29-2022 14:04-0500 SaO2% (BldA) [Mass fraction] 97 % Hodan Rodney [employer]IC HOUSEKEEPER Work Phone: [facility] 04-29-2022 14:04-0500 Systolic blood pressure 120 mm[Hg] Hodan Rodney [employer]IC HOUSEKEEPER Work Phone: [facility] 03-18-2022 13:56-0500 Body temperature 97.59 [degF] 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 Phone: [facility] 03-18-2022 13:56-0500 Body weight 60.78 kg 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 Phone: [facility] 03-18-2022 13:56-0500 Diastolic blood pressure 66 mm[Hg] 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 Phone: [facility] 03-18-2022 13:56-0500 Heart rate 66 /min 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 Phone: [facility] 03-18-2022 13:56-0500 Respiratory rate 16 /min 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 Phone: [facility] 03-18-2022 13:56-0500 SaO2% (BldA) [Mass fraction] 96 % 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 Phone: [facility] 03-18-2022 13:56-0500 Systolic blood pressure 132 mm[Hg] 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 Phone: [facility] 02-22-2022 14:30-0400 Body temperature 97.3 [degF] Brandon Manley MD Work Phone: [facility] 02-22-2022 14:30-0400 Body weight 59.42 kg Brandno Manley MD Work Phone: [facility] 02-22-2022 14:30-0400 Diastolic blood pressure 78 mm[Hg] Brandon Manley MD Work Phone: [facility] 02-22-2022 14:30-0400 Heart rate 60 /min Brandon Manley MD Work Phone: [facility] 02-22-2022 14:30-0400 Respiratory rate 16 /min Brandon Manley MD Work Phone: [facility] 02-22-2022 14:30-0400 SaO2% (BldA) [Mass fraction] 96 % Brandon Manley MD Work Phone: [facility] 02-22-2022 14:30-0400 Systolic blood pressure 124 mm[Hg] Brandon Manley MD Work Phone: [facility] 01-21-2022 12:03-0400 Body weight 58.97 kg Brandon Manley MD Work Phone: [facility] 01-21-2022 12:03-0400 Diastolic blood pressure 68 mm[Hg] Brandon Manley MD Work Phone: [facility] 01-21-2022 12:03-0400 Heart rate 56 /min Brandon Manley MD Work Phone: [facility] 01-21-2022 12:03-0400 Respiratory rate 16 /min Brandon Manley MD Work Phone: [facility] 01-21-2022 12:03-0400 Systolic blood pressure 138 mm[Hg] Brandon Manley MD Work Phone: [facility] 12-24-2021 08:03-0400 Body height 154.9 cm Pacc 1 Work Phone: [facility] 12-24-2021 08:03-0400 Body temperature 97.11 [degF] Pacc 1 Work Phone: [facility] 12-24-2021 08:03-0400 Body weight 60.78 kg Pacc 1 Work Phone: [facility] 12-24-2021 08:03-0400 Diastolic blood pressure 64 mm[Hg] Pacc 1 Work Phone: [facility] 12-24-2021 08:03-0400 Heart rate 58 /min Pacc 1 Work Phone: [facility] 12-24-2021 08:03-0400 Respiratory rate 16 /min Pacc 1 Work Phone: [facility] 12-24-2021 08:03-0400 SaO2% (BldA) [Mass fraction] 97 % Pacc 1 Work Phone: [facility] 12-24-2021 08:03-0400 Systolic blood pressure 126 mm[Hg] Pacc 1 Work Phone: [facility] 09-21-2021 11:39-0400 Body weight 59.42 kg Lindsay Zee MD Work Phone: [facility] 09-21-2021 11:39-0400 Diastolic blood pressure 68 mm[Hg] Lindsay Zee MD Work Phone: [facility] 09-21-2021 11:39-0400 Systolic blood pressure 136 mm[Hg] Lindsay Zee MD Work Phone: [facility] Encounters Encounter Date Encounter Type Care Provider Facility Start: 05-30-2023 End: 05-30-2023 ambulatory KATHERYN STOKES Facility:[facility] Start: 05-23-2023 End: 05-23-2023 ambulatory SYLVIA GAMBOA Facility:[facility] Start: 05-01-2023 E-mail encounter fro m caregiver Joshua James Nettles DO Work Phone: [facility] Start: 05-01-2023 Patient encounter procedure Joshua Nettles DO Work Phone: Cardiology Procedures Date Procedure Procedure Detail Performing Clinician Start: 02-10-2023 INFLUENZA VACCINE, P RSV FREE, AGE 65+ YR, HIGH DOSE, QUADRIVALENT (FLUZONE HIGH-DOSE) Gwendolyn Ballard APRN.DOMESTIC HOUSEKEEPER Work Phone: Start: 01-27-2023 Co diffusing capacity E gudelia Gamboa MD Work Phone: Start: 01-10-2023 Follow-up visit Follow Up GWENDOLYN PASCUAL Start: 12-26-2022 Ct abdomen & pelvis w/contrast material Gwendolyn Ballard APRN.DOMESTIC HOUSEKEEPER Work Phone: Start: 12-12-2022 Sars-cov-2 detection by dna/rna Gwendolyn Ballard APRN.DOMESTIC HOUSEKEEPER Work Phone: Start: 12-12-2022 STREP A MOLECULAR (POC) Gwendolyn Ballard APRN.DOMESTIC HOUSEKEEPER Work Phone: Start: 06-11-2022 End: 06-11-2022 Colonoscopy Brandon Manley MD Work Phone: Start: 05-28-2022 Ct abdomen & pelvis w/o contrast material Katheryn Stokes MD Work Phone: Start: 05-15-2022 Urnls dip stick/tabl et rgnt auto w/o microscopy 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 Phone: Start: 02-22-2022 STREP A MOLECULAR [...] Adult depression scr eening assessment 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 Phone: Start: 01-19-2020 Lipid 1996 panel - S rodolfo or Plasma 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 Phone: Start: 01-14-2019 Mammography 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 Phone: Start: 11-22-2015 Colonoscopy 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 Phone: Plan of Treatment Date Care Activity Detail Author Start: 06-11-2032 Screening for malign ant neoplasm of colon [facility] Start: 07-08-2028 Tetanus vaccination Tetanus: Every 1 0yrs [facility] Start: 12-26-2025 DIABETES SCREEN DIABETES SCREEN [facility] Start: 12-26-2025 Diabetes Screening Diabetes Screenin g [facility] Start: 12-12-2025 DIABETES SCREEN DIABETES SCREEN [facility] Start: 05-15-2025 DIABETES SCREEN DIABETES SCREEN [facility] Start: 04-29-2025 DIABETES SCREEN DIABETES SCREEN [facility] Start: 03-15-2025 DIABETES SCREEN DIABETES SCREEN [facility] Start: 01-18-2025 Lipid 1996 panel - S rodolfo or Plasma Lipid Screening [facility] Start: 01-18-2025 Lipid panel Lipid Screening [facility] Start: 01-18-2025 LIPID SCREEN LIPID SCREEN [facility] Start: 12-24-2024 DIABETES SCREEN DIABETES SCREEN [facility] Start: 09-06-2024 DIABETES SCREEN DIABETES SCREEN [facility] Start: 06-11-2024 Colonoscopy COLONOSCOPY [facility] Start: 06-11-2024 COLORECTAL CANCER SCREENING COLORECTAL CANCER SCREENING [facility] Start: 06-11-2024 Screening for malign ant neoplasm of colon [facility] Start: 03-31-2024 Annual PCP Team Receiving Worker binu Disease Visit Annual PCP Team Chronic Disease Visit [facility] Start: 03-31-2024 BP Controlled (<130/80) BP Controlle d (<130/80) [facility] Start: 03-31-2024 RSV Vaccine (1 - 1-d ose 60+ series) RSV Vaccine (1 - 1-dose 60+ series) [facility] Immunizations Immunization Date Immunization Notes Care Provider Fa lb 02-10-2023 influenza (HD-IIV4) vaccine, age 65+ yr, high dose, quadrivalent, PF (FLUZONE HIGH-DOSE) 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 Phone: [facility] 01-21-2022 influenza, high-dose , quadrivalent vaccine (FLUZONE HIGH DOSE QUADRIVALENT) Brandon Manley MD Work Phone: [facility] Work Phone: 01-21-2022 influenza virus vacc ine, unspecified formulation 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 Phone: [facility] 09-19-2021 zoster vaccine recombinant Lindsay Zee MD Work Phone: [facility] 02-03-2021 influenza, high-dose , quadrivalent vaccine (FLUZONE HIGH DOSE QUADRIVALENT) 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 Phone: [facility] 06-13-2020 COVID-19 vaccine, fu ll dose (MODERNA) 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 Phone: [facility] Work Phone: 05-16-2020 COVID-19 vaccine, fu ll dose (MODERNA) 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 Phone: [facility] Work Phone: 03-04-2020 influenza, high-dose , quadrivalent vaccine (FLUZONE HIGH DOSE QUADRIVALENT) 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 Phone: [facility] Work Phone: 02-12-2019 influenza, high dose seasonal, preservative-free 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 Phone: [facility] 07-08-2018 tetanus and diphther ia toxoids, adsorbed, preservative free, for adult use (5 Lf of tetanus toxoid and 2 Lf of diphtheria toxoid) Gwendolyn Older MALLET CUTTER.[facility] Work Phone: [facility] Work Phone: 01-23-2018 influenza, high dose seasonal, preservative-free 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 Phone: [facility] Work Phone: 02-03-2016 influenza, high dose seasonal, preservative-free 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 Phone: [facility] 04-28-2015 pneumococcal conjuga te vaccine, 13 valent 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 Phone: [facility] 02-18-2015 influenza, high dose seasonal, preservative-free 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 Phone: [facility] Work Phone: 02-23-2014 influenza, seasonal, injectable 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 Phone: [facility] 12-30-2013 pneumococcal polysaccharide vaccine, 23 valent 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 Phone: [facility] 03-06-2013 influenza virus vacc ine, unspecified formulation 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 Phone: [facility] Work Phone: 02-29-2012 influenza virus vacc ine, unspecified formulation 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 Phone: [facility] Work Phone: 03-12-2011 influenza virus vacc ine, unspecified formulation 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 Phone: [facility] 12-25-2010 zoster vaccine, live Gwendolyn Old er MALLET CUTTER.DOMESTIC HOUSEKEEPER Work Phone: [facility] 08-20-2010 hepatitis B vaccine, adult dosage 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 Phone: [facility] 03-01-2010 influenza virus vacc ine, unspecified formulation 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 Phone: [facility] Work Phone: 02-19-2010 hepatitis B vaccine, adult dosage 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 Phone: [facility] Work Phone: 01-02-2010 hepatitis B immune globulin 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 Phone: [facility] 02-15-2009 influenza virus vacc ine, unspecified formulation 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 Phone: [facility] Work Phone: 03-16-2008 influenza virus vacc ine, unspecified formulation 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 Phone: [facility] 03-26-2007 influenza virus vacc ine, unspecified formulation 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 Phone: [facility] Work Phone: 03-26-2007 pneumococcal polysaccharide vaccine, 23 valent 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 Phone: [facility] Work Phone: 07-16-2006 tetanus and diphther ia toxoids, adsorbed, preservative free, for adult use (2 Lf of tetanus toxoid and 2 Lf of diphtheria toxoid) 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 Phone: [facility] Payers Date Payer Category Payer Medicare [id number] 2022 Medicare [id number] 2022 Private Health Insurance [id number] 2022 Private Health Insurance [id number] 2020 Unknown MMO MMO TPA [id number] 2020-Present [address] [place] [address] PPO [id number] 2020 Unknown ANTHEM BLUE CROS S AND BLUE SHIELD ANTHEM MEDIBLUE HMO [id number] 2020-Present [phone] [address] [place] [address] HMO [id number] 2020 Unknown [id number] 1947 Unknown [id number] 1945 Unknown [id number] Social History Date Type Detail Facility Start: 04-28-2015 End: 12-24-2021 Tobacco smoking status NHIS Ex-smoker [facility] Work Phone: End: 11-09-2005 History of tobacco use Current smoker [facility] Work Phone: End: 11-09-2005 History of tobacco use Cigarette Smoker [facility] Work Phone: Start: 07-10-2021 End: 10-10-2021 Alcohol intake Current drinker of alcohol (finding) [facility] Start: 06-27-2021 End: 02-22-2022 History SDOH Alcohol Frequency 1 [facility] Start: 07-05-2013 History SDOH Alcohol Comment mixed drink in p.m. [facility] Start: 06-27-2021 End: 04-15-2022 History SDOH Social Connections Phone 5 [facility] Start: 06-27-2021 End: 04-15-2022 History SDOH Social Connections Get Together 4 [facility] Start: 06-27-2021 End: 04-15-2022 History SDOH Social Connections Membership 2 [facility] Start: 06-27-2021 End: 04-15-2022 History SDOH Physical Activity MPS 15 [facility] Start: 1945 Sex Assigned At Female C [facility] Start: 08-28-2021 End: 09-13-2022 Exposure to SARS-CoV-2 (event) Not sure [facility] Start: 12-24-2021 End: 09-26-2022 Cigarettes smoked current (pack per day) - Reported 2 [facility] Start: 12-24-2021 End: 09-13-2022 Tobacco use and exposure Smokeless tobacco non-user [facility] Start: 12-24-2021 End: 03-31-2023 Alcohol intake Ex-drinker (finding) [facility] Start: 12-24-2021 Tobacco Comment Stopped smoking 12/29 06 [facility] Start: 04-15-2022 History SDOH Alcohol Std Drinks 0 [facility] consumption unknown [facility] Start: 1945 Sex Assigned At Not on file [facility] Start: 04-15-2022 End: 09-26-2022 Gender identity Not on file [facility] Start: 09-13-2022 Tobacco smoking stat [facility] Never smoked tobacco [facility] Start: 09-13-2022 Alcohol intake Lifetime non-d tristan (finding) [facility] Do you belong to any clubs or organizations such as sabianism groups, unions, fraternal or athletic groups, or school groups? No [facility] Are you now , , , , never or living with a partner? [facility] Frequency of Alcohol Consumption Not on file [facility] How often do you hav e 6 or more drinks on 1 occasion? Never [facility] Do you feel stress - tense, restless, nervous, or anxious, or unable to sleep at night because your mind is troubled all the time - these days [OSQ] Only a little [facility] (I/We) worried wheth er (my/our) food would run out before (I/we) got money to buy more. Never true [facility] Start: 03-02-2020 Gender identity Identifies as female gender (finding) [facility] Start: 03-02-2020 Sexual orientation Heterosexual (parris germain) [facility] NEGATED: Highlighted rowStart: CECYF History of tobacco use Passive smoker [facility] Clinical Notes 11-22-2015 to 05-30-2023 Telephone Encounter - Felicitas Glover - 04/11/2023 8:24 AM ESTTelephone Encounter - Lorraine Zarco - 04/10/2023 2:52 PM Gwendolyn Cote APRN.CNP - 03/31/2023 12:01 PM ESTPatient Instructions Note Date & Type Note Facility 05-30-2023 Note [facility] 05-23-2023 Note [facility] 04-11-2023 Miscellaneous Notes Patient has been identified [...] patient. Lorraine Randle documented in this encounter [facility] 03-31-2023 Note [facility] 03-31-2023 History of Present illness Narrative CC: [...] surgery with implants- Dr Jacob Aguilar at [facility] PAST SURGICAL HISTORY OF 07/27/2015 cryo ablation, cardiac RPR UMBILICAL HRNA 5 YRS/> REDUCIBLE 07/17/2010 Hernia repair, umbilical >5yr [facility] Dr Manuel Hoover SHX [...] Take 0.5 tablets by mouth twice daily. tgzzlfefjby-rqqnfhali-dronmazu (TRELEGY ELLIPTA) 100-62.5-25 mcg inhalation powder Inhale [...] 1,000 mg by mouth five times daily. BBNGIZC-WFKUGZBZA-IGLD ORAL Take by mouth. lidocaine (LIDODERM) 5 [...] Gwendolyn Ballard APRN.CNP documented in this encounter [facility] 03-24-2023 Miscellaneous Notes Patient has been identified [...] Toshia Jaquez LPN. documented in this encounter [facility] 03-24-2023 Note [facility] 03-24-2023 History of Present illness Narrative [employer] 02/26/2023: Recording time 5 hours 54 min Saturation < 88% 94 min Lowest saturation 68% Confirms need for nocturnal oxygen documented in this encounter [facility] 03-17-2023 Note [facility] 03-17-2023 Instructions Lupe Ballard APRN.DOMESTIC HOUSEKEEPER - 03/17/2023 2:30 PM EST Fact Sheet [...] of LAGEVRIO during to this registry at https://covid-pr.Symform.Medicago or . For individuals who are sexually [...] virus. COVID-19 illnesses have ranged from very ntfo-fv-kboopj, including illness resulting in . While information [...] serious illnesses Take any medicines including prescription, voub-vkc-tecqbou medicines, vitamins, and herbal products. How do [...] NG or OG that is size 12 [place]er (FR) or larger. If you miss a [...] treat people with COVID-19. Go to https://www.fda.gov/emergency-pre vpqldjdpl-cih-nuyarvxb/mcm-legalr ughkmrbns-kqc-gbbdfy-framework/em ayrtieq-muk-ltbprjmjurots for more information. It is your choice [...] to FDA MedWatch at www.fda.gov/medwatch or call 0-388-UOS-7902 ([phone]). How should I store LAGEVRIO? Store LAGEVRIO capsules at room temperature between 68 F to 77 F (20 C to 25 C). Keep LAGEVRIO and all medicines out of the reach of children. How can I learn more about COVID-19? Ask your healthcare provider. Visit www.cdc.gov/COVID19 Contact your local or state public health department. Call [employer] at (toll free in the [place] Visit www.Starteed What Is an Emergency Use Authorization (EUA)? The [place] FDA has made LAGEVRIO available under an emergency access mechanism called an Emergency Use Authorization (EUA) The EUA is supported by a [place] of Health and Human Service (HHS) declaration that circumstances exist to justify emergency use of drugs and biological products during the COVID-19 pandemic. LAGEVRIO for the treatment of adults with a current diagnosis of cxol-pt-pxgtmsis COVID-19 who are at high risk for [...] be used under the EUA). [place]. for: [employer] [address] For patent information: www.[employer]/research/patent Copyright [employer] [facility] and its affiliates. All rights reserved. [id number] Revised: June 2022 documented in this encounter [facility] 03-17-2023 History of Present illness Narrative This Team Access Model visit is a phone encounter. It required patient-provider interaction for the medical decision making as documented below. I have communicated my name and active licensure. The patient's identity and physical location were verified at the time of this visit. Either the patient or their legal territory account representative has been informed of the risks and benefits of -- and alternatives to -- treatment through a remote evaluation and consents to proceed with the evaluation remotely. Patient Location: [place] CC: Patient presents with: Covid19 Concern HPI: [...] surgery with implants- Dr Jacob Aguilar at [facility] PAST SURGICAL HISTORY OF 07/27/2015 cryo ablation, cardiac RPR UMBILICAL HRNA 5 YRS/> REDUCIBLE 07/17/2010 Hernia repair, umbilical >5yr [facility] Dr Manuel Hoover SHX [...] Take 0.5 tablets by mouth twice daily. qijycdypvdk-rvjvdjeoc-jlpdskzj (TRELEGY ELLIPTA) 100-62.5-25 mcg inhalation powder Inhale [...] 1,000 mg by mouth five times daily. LUVTCZA-XSSMDWOWU-PLMY ORAL Take by mouth. FAMILY HISTORY Problem [...] Lupe Ballard APRN.CNP documented in this encounter [facility] 03-04-2023 Miscellaneous Notes Rx sent again. Davin Victor PA-C John from [facility] Pharm calling for clarification on pt's diclofenac, EC 75 mg. States order is written for Can use every other day. States he needs to know how many tablets and how many times per pay pt can take this. Please advise. Can send a new rx or call pharm back. Leif Orlando LPN documented in this encounter [facility] 03-04-2023 Note [facility] 03-04-2023 Miscellaneous Notes Patient was seen in [...] on Friday. Please call patient back at [phone] to advice what the patient should do. Thank you Adriana Lopes documented in this encounter [facility] 03-04-2023 History of Present illness Narrative CC: [...] surgery with implants- Dr Jacob Aguilar at [facility] PAST SURGICAL HISTORY OF 07/27/2015 cryo ablation, cardiac RPR UMBILICAL HRNA 5 YRS/> REDUCIBLE 07/17/2010 Hernia repair, umbilical >5yr [facility] Dr Manuel Hoover SHX COSMETIC SURGERY SKIN BIOPSY HX ALLERGIES Cardizem [Diltiazem Hcl], Codeine, Entex [Phenylephrine-Guaifenesin], Etodolac, Meloxicam, Naproxen, Surgical Tape Adhesives [Other], Trazodone, and Zantac [Ranitidine Hcl] MEDICATIONS JARDIANCE 10 mg tablet Take 10 mg by mouth once daily. metoprolol succinate ER (TOPROL XL) 25 mg 24 hr tablet Take 0.5 tablets by mouth twice daily. cmboatkkyfr-ijaqdlknt-etdyhqgs (TRELEGY ELLIPTA) 100-62.5-25 mcg inhalation powder Inhale [...] 1,000 mg by mouth five times daily. BVWSXSB-BCUVFXFXY-CJON ORAL Take by mouth. lidocaine (LIDODERM) 5 [...] Davin Victor PA-C documented in this encounter [facility] 03-03-2023 Miscellaneous Notes Please see attach overnight pulse ox results and advise. 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 [...] surgery with implants- Dr Jacob Aguilar at [facility] PAST SURGICAL HISTORY OF 07/27/2015 cryo ablation, cardiac RPR UMBILICAL HRNA 5 YRS/> REDUCIBLE 07/17/2010 Hernia repair, umbilical >5yr [facility] Dr Manuel Hoover SHX [...] tablet Take two daily for 5 days. dpaxkmfpsdg-hwdyjjupn-tjnnhbfq (TRELEGY ELLIPTA) 100-62.5-25 mcg inhalation powder Inhale [...] daily. (Patient not taking: No sig reported) ZQPDKMX-SDDRYTBYG-JLEI ORAL Take by mouth. FAMILY HISTORY Problem [...] Gwendolyn Ballard APRN.CNP documented in this encounter [facility] 01-28-2023 Note [facility] 01-28-2023 Instructions Phil Oden MD - 01/28/2023 8:09 PM EDT Fill prescription for C diff if develop symptoms as before. Can get tested if needed documented in this encounter [facility] 01-28-2023 History of Present illness Narrative This note was created using ipDatatelter. Subjective Elizabeth Delgado is a 77 year [...] had ablation therapy for a fib through [place] but states that did not work well. [...] tablet Take two daily for 5 days. wewidplnvvp-ikfartlqh-nifesibs (TRELEGY ELLIPTA) 100-62.5-25 mcg inhalation powder Inhale [...] daily. (Patient not taking: No sig reported) RMZKMYC-RENUXKYKZ-PYXK ORAL Take by mouth. No current facility-administered [...] failure type (HCC) I50.9 compensated; needs new ultra sound technician in [facility] system Above issues addressed with [...] the date of the service which included wegg-zq-oowm patient care, completing clinical documentation, obtaining and/or reviewing separately obtained history, performing a medically appropriate examination, counseling and educating the patient/family/caregiver, and ordering medications, tests, or procedures. Phil Oden MD documented in this encounter [facility] 01-27-2023 Note [facility] 01-27-2023 Note [facility] 01-27-2023 History of Present illness Narrative Images from the original note were not included. . [facility] Note Patient name: Elizabeth Delgado PCP: Brandon [...] for evaluation of COPD. Recently admitted to [facility] with hypoxemic respiratory failure [...] BNP <450 pg/mL 6 High Resulting Agency [facility] Imaging / Diagnostic Studies: [...] acute radiographic abnormality. Reviewed chest CT from [facility] 04/27/2022 shows moderate upper lobe emphysema PAST [...] tablet Take two daily for 5 days. sheliprgyyj-gnserljnd-nkymbcuy (TRELEGY ELLIPTA) 100-62.5-25 mcg inhalation powder Inhale [...] daily. (Patient not taking: No sig reported) DKPMEHX-YTEWLTRQB-FCJC ORAL Take by mouth. Social History Tobacco [...] surgery with implants- Dr Jacob Aguilar at [facility] PAST SURGICAL HISTORY OF 07/27/2015 cryo ablation, cardiac RPR UMBILICAL HRNA 5 YRS/> REDUCIBLE 07/17/2010 Hernia repair, umbilical >5yr [facility] Dr Manuel Hoover SHX [...] -Anticoagulated -Rate controlled Sylvia Gamboa MD [facility] documented in this encounter [facility] 01-24-2023 Miscellaneous Notes Pt notified and voiced [...] APRN.ANITHA Pt had blood work done at [facility] View External Labs - Chemistry [ID [id number]] Stephanie Randolph Ma documented in this encounter [facility] 01-23-2023 Note [facility] 01-23-2023 Note [facility] 01-23-2023 Instructions Gwendolyn Ballard APRN.CNP - 01/23/2023 3:00 PM EDT Decrease Metoprolol to 25mg Twice daily until you see cardiology. Flonase 2 sprays each nostril before bed and rinse out mouth after. documented in this encounter [facility] 01-23-2023 History of Present illness Narrative CC: Patient presents with: [facility] F/U [facility] Elizabeth Delgado is a 77 year old [...] see pulmonology, but unable to get into [facility] until April. Presents today stating she [...] surgery with implants- Dr Jacob Aguilar at [facility] PAST SURGICAL HISTORY OF 07/27/2015 cryo ablation, cardiac RPR UMBILICAL HRNA 5 YRS/> REDUCIBLE 07/17/2010 Hernia repair, umbilical >5yr [facility] Dr Manuel Hoover SHX [...] (ONE-A-DAY 50 PLUS ORAL) Take by mouth. DHBAQKT-MEGXGZRNZ-AFNA ORAL Take by mouth. CALCIUM CARBONATE/VITAMIN D3 [...] last year, trying to find a new ultra sound technician that she can see regularly - ECG [...] trying to get patient in with [facility] registered radiologic technologist - CONSULT TO CARDIOLOGY 8. History of recent hospitalization - ICD9: V13.9, ICD10: Z92.89 - D-DIMER 9. Acute pain of right shoulder - ICD9: 719.41, ICD10: M25.511 - scapula tender but no deformities noted - XR SHOULDER [id number] AP/TRUE AP RIGHT 10. Fall, initial encounter - ICD9: E888.9, ICD10: W19.XXXA - XR SHOULDER [id number] AP/TRUE AP RIGHT Prescription instructions reviewed with patient as applicable. Potential red flag symptoms discussed with the patient. Reviewed appropriate action plan to take if red flag symptoms occur. Patient agreeable to treatment plan. Gwendolyn Ballrad APRN.ANITHA documented in this encounter [facility] 01-10-2023 Note [facility] 01-10-2023 History of Present illness Narrative CC: [...] legs at the same time. Went to [facility] for her scheduled visit but [...] surgery with implants- Dr Jacob Aguilar at [facility] PAST SURGICAL HISTORY OF 07/27/2015 cryo ablation, cardiac RPR UMBILICAL HRNA 5 YRS/> REDUCIBLE 07/17/2010 Hernia repair, umbilical >5yr [facility] Dr Manuel Hoover SHX [...] daily. (Patient not taking: No sig reported) WHVEDCK-DNZXZTGOF-BFTQ ORAL Take by mouth. FAMILY HISTORY Problem [...] by cardiology - patient has appointment with ultra sound technician next Friday - Follow up in 2 [...] Gwendolyn Ballard APRN.CNP documented in this encounter [facility] 01-03-2023 Note [facility] 01-03-2023 History of Present illness Narrative CC: [...] GFR was 57 and Creatinine 1.03 Facility: [facility] Date of visit: 12-31-01/02 Reason for visit: [...] surgery with implants- Dr Jacob Aguilar at [facility] PAST SURGICAL HISTORY OF 07/27/2015 cryo ablation, cardiac RPR UMBILICAL HRNA 5 YRS/> REDUCIBLE 07/17/2010 Hernia repair, umbilical >5yr [facility] Dr Manuel Hoover SHX [...] daily. (Patient not taking: No sig reported) OPNGOEV-HLNEXFQLL-ITIU ORAL Take by mouth. FAMILY HISTORY Problem [...] MAMMOGRAM Discontinued DATA REVIEWED: Outside chart from [place] reviewed. Also reviewed recent lab work for [...] Gwendolyn Ballard APRN.ANITHA documented in this encounter [facility] 12-30-2022 Miscellaneous Notes Patient notified. Felicitas Prince [...] and water as frequently as possible. Davin Victro PA-C Patient stating having frequent BM's a [...] Gwendolyn Ballard APRN.ANITHA documented in this encounter [facility] 12-26-2022 Note [facility] 12-26-2022 Miscellaneous Notes Spoke with patient. Given [...] Gwendolyn Ballard APRN.ANITHA documented in this encounter [facility] 12-26-2022 History of Present illness Narrative Radiology [...] TIME: 3:32 PM documented in this encounter [facility] 12-26-2022 Note [facility] 12-26-2022 History of Present illness Narrative CC: [...] surgery with implants- Dr Jacob Aguilar at [facility] PAST SURGICAL HISTORY OF 07/27/2015 cryo ablation, cardiac RPR UMBILICAL HRNA 5 YRS/> REDUCIBLE 07/17/2010 Hernia repair, umbilical >5yr [facility] Dr Manuel Hoover SHX [...] daily. (Patient not taking: No sig reported) HUJBDWA-ZDNUFATXB-ODJN ORAL Take by mouth. FAMILY HISTORY Problem [...] Gwendolyn Ballard APRN.CNP documented in this encounter [facility] 12-13-2022 Miscellaneous Notes Agree. Patient needs to [...] Gwendolyn Ballard APRN.CNP documented in this encounter [facility] 12-12-2022 Note [facility] 12-12-2022 Note [facility] 12-12-2022 History of Present illness Narrative CC: [...] some pain yesterday in her right ear. load mixer she saw 2 weeks ago and then [...] surgery with implants- Dr Jacob Aguilar at [facility] PAST SURGICAL HISTORY OF 07/27/2015 cryo ablation, cardiac RPR UMBILICAL HRNA 5 YRS/> REDUCIBLE 07/17/2010 Hernia repair, umbilical >5yr [facility] Dr Manuel Hoover SHX [...] daily. (Patient not taking: No sig reported) SOPBNLJ-ZXKQQJBAD-QLZX ORAL Take by mouth. FAMILY HISTORY Problem [...] Gwendolyn Ballard APRN.ANITHA documented in this encounter [facility] 10-31-2022 Note [facility] 10-31-2022 History of Present illness Narrative Reason [...] surgery with implants- Dr Jacob Aguilar at [facility] PAST SURGICAL HISTORY OF 07/27/2015 cryo ablation, cardiac RPR UMBILICAL HRNA 5 YRS/> REDUCIBLE 07/17/2010 Hernia repair, umbilical >5yr [facility] Dr Manuel Hoover SHX [...] MULTIVITAMIN WITH MINERALS (ONE-A-DAY 50 PLUS ORAL) VOSXFWD-ODKUSHFJM-ECXL ORAL sucralfate (CARAFATE) 1 gram tablet CALCIUM [...] Cont all meds till she sees the ultra sound technician 2. Generalized arthritis - ICD9: 716.90, ICD10: [...] Brandon Manley MD documented in this encounter [facility] 10-04-2022 Note [facility] 10-01-2022 Note [facility] 10-01-2022 History of Present illness Narrative NAME: ELIZABETH DELGADO [facility] NO: [id number] DATE OF SERVICE: 10/01/2022 Subjective: Elizabeth is [...] concerns. Zuleyma Meredith D.O. KB/089 Audio #: [id number] Date Dictated: 10/01/2022 09:14:01 Date Typed: 10/05/2022 05:09:37 Date Revised: documented in this encounter [facility] 09-30-2022 Note [facility] 09-26-2022 Note [facility] 09-26-2022 Note [facility] 09-13-2022 Instructions Talia Haque MD - 09/13/2022 11:16 AM EDT We will schedule physical therapy in [place]. Regular exercise and institute fall precautions. May [...] visit as needed. documented in this encounter [facility] 09-13-2022 History of Present illness Narrative Neurology Outpatient Consult [facility] [address] [place], [place] [id number] (phone)/[phone] (fax) Patient: Elizabeth Delgado Date of : [...] Suggestion: We will schedule physical therapy in [place]. Regular exercise and institute fall precautions. May [...] cell) Chew apixaban (ELIQUIS) 5 mg Tab THNKMZT-MGJHZYPBJ-ELYR ORAL flecainide (TAMBOCOR) 100 MG tablet furosemide [...] 2022. She was admitted and evaluated in [facility]. Her brain MRI showed no acute stroke. [...] or delusion. 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 No recent falls or injury. She does [...] Gait is limping. documented in this encounter [facility] 09-03-2022 Note [facility] 09-03-2022 History of Present illness Narrative Images from the original note were not included. [facility] DEPARTMENT OF VASCULAR SURGERY OUTPATIENT VISIT DATE September 03, 2022 OUTPATIENT VISIT TYPE CONSULTATION SERVICE DATE: 09/03/2022 SERVICE TIME: 10:30 AM PRIMARY CARE PHYSICIAN: Brandon Manley MD REFERRING PROVIDER: Zuleyma Meredith [address] [place] [id number] Consult requested for an opinion regarding the [...] surgery with implants- Dr Jacob Aguilar at [facility] PAST SURGICAL HISTORY OF 07/27/2015 cryo ablation, cardiac RPR UMBILICAL HRNA 5 YRS/> REDUCIBLE 07/17/2010 Hernia repair, umbilical >5yr [facility] Dr Manuel Hoover SHX [...] (ONE-A-DAY 50 PLUS ORAL) Take by mouth. OKFPXIY-KLVRSMAFW-ORFL ORAL Take by mouth. sucralfate (CARAFATE) 1 [...] TIME: 10:30 AM documented in this encounter [facility] 08-29-2022 Note [facility] 08-29-2022 History of Present illness Narrative Reason [...] diastolic dysfunction She has been to the ultra sound technician for 2 days ago and is back [...] surgery with implants- Dr Jacob Aguilar at [facility] PAST SURGICAL HISTORY OF 07/27/2015 cryo ablation, cardiac RPR UMBILICAL HRNA 5 YRS/> REDUCIBLE 07/17/2010 Hernia repair, umbilical >5yr [facility] Dr Manuel Hoover SHX [...] ORAL) CALCIUM CARBONATE/VITAMIN D3 (VITAMIN D-3 ORAL) GDROXDP-BDUSYBJRB-FDNC ORAL Review of Systems CONSTITUTIONAL: No fevers, [...] Brandon Manley MD documented in this encounter [facility] 08-15-2022 Note [facility] 08-09-2022 Miscellaneous Notes Noted Gwendolyn Ballard APRN.CNP Patient did go to [facility] ER. Olga Lidia Lima [...] nausea 8. : NO Protocols used: Neurologic Ixfxjxt-QZXAG-FO documented in this encounter [facility] 07-25-2022 Miscellaneous Notes Pt already scheduled. Nadia [...] diagnosis she needs this for. Regards, Brandon Mnaley MD patient is needing a referral to Dr. Eddie Segal for her insurance. Felicitas Prince LPN documented in this encounter [facility] 07-21-2022 Note [facility] 07-21-2022 History of Present illness Narrative FOLLOW UP VISIT - ENDOSCOPY NAME: Elizabeth Steen [facility] NO.: [id number] DATE OF SERVICE: July 18, 2022 : [...] patient had a swallow study performed at [facility] which she noted was demonstrating food sticking [...] - External and internal hemorrhoids. Pathology demonstrated: Intranet Support Specimen originated from [facility] Specimen #: [id number] Submitting Physician: KLAUS CORDOBA MD FINAL DIAGNOSIS [...] regurgitation symptoms. She followed up with her ultra sound technician on July 05, 2022. TRhey felt she [...] Katheryn Stokes MD documented in this encounter [facility] 07-04-2022 Miscellaneous Notes Forms were filled Spoke [...] When form is completed, Fax form to [facility] Form has been forwarded to Physician Desk: Dr. Dr. Sindhu Saha LPN documented in this encounter [facility] 06-20-2022 Note [facility] 06-18-2022 Note [facility] 06-18-2022 Nurse Note faxing letter to [facility] HR at [phone] documented in this encounter [facility] 06-18-2022 History of Present illness Narrative Reason [...] surgery with implants- Dr Jacob Aguilar at [facility] PAST SURGICAL HISTORY OF 07/27/2015 cryo ablation, cardiac RPR UMBILICAL HRNA 5 YRS/> REDUCIBLE 07/17/2010 Hernia repair, umbilical >5yr [facility] Dr Manuel Hoover SHX [...] ORAL) CALCIUM CARBONATE/VITAMIN D3 (VITAMIN D-3 ORAL) ZIMZPPP-AIUBPTOYV-WKPD ORAL Review of Systems CONSTITUTIONAL: No fevers, [...] Brandon Manley MD documented in this encounter [facility] 06-17-2022 Miscellaneous Notes Patient notified. ----- Message from Brandon Manley MD sent at 06/16/2022 8:29 PM EST ----- Elizabeth, I would like you to cut out the vit d supplements totally for 3 montsh as the vit d is very high. The pancrease enzymes were normal so was vit d Regards, Brandon Manley MD documented in this encounter [facility] 06-08-2022 Note [facility] 06-08-2022 History of Present illness Narrative Dear [...] reports. Her imaging studies done at the [facility] radiology CT scan abdomen shows that there is a questionable calcified gallbladder with some abnormalities noted. Looking at her ultrasound from [facility] they stated do not have a gallbladder. [...] Brandon Manley MD documented in this encounter [facility] 06-08-2022 Note [facility] 06-08-2022 History of Present illness Narrative Reason [...] surgery with implants- Dr Jacob Aguilar at [facility] PAST SURGICAL HISTORY OF 07/27/15 cryo ablation, cardiac RPR UMBILICAL HRNA 5 YRS/> REDUCIBLE 07/17/2010 Hernia repair, umbilical >5yr [facility] Dr Manuel Hoover FAMILY [...] ORAL) CALCIUM CARBONATE/VITAMIN D3 (VITAMIN D-3 ORAL) IWYMHSY-VQXIDYCZF-DOKD ORAL estradiol (ESTRACE) 0.01 % (0.1 mg/gram) [...] Brandon Manley MD documented in this encounter [facility] 05-28-2022 History of Present illness Narrative Radiology [...] 2022 11:57 AM documented in this encounter [facility] 05-27-2022 Miscellaneous Notes 06/11/2022 colon asc Patient accepted sooner date Sonia Diane Day Spa Manager Patient on waitlist for sooner opening with Dr. Stokes 07/02/2022 COLON/EGD ASC documented in this encounter [facility] 05-23-2022 History of Present illness Narrative HISTORY AND PHYSICAL Elizabeth Delgado 1945 REFERRING PHYSICIAN: Gwendolyn Ballard APRN.DOMESTIC HOUSEKEEPER CHIEF COMPLAINT: Consult (Hiatal hernia) HPI: The [...] patient had a swallow study performed at [facility] which she noted was demonstrating food corticoid [...] - External and internal hemorrhoids. Pathology demonstrated: Intranet Support Specimen originated from [facility] Specimen #: [id number] Submitting Physician: KLAUS CORDOBA MD FINAL DIAGNOSIS [...] surgery with implants- Dr Jacob Aguilar at [facility] PAST SURGICAL HISTORY OF 07/27/15 cryo ablation, cardiac RPR UMBILICAL HRNA 5 YRS/> REDUCIBLE 07/17/2010 Hernia repair, umbilical >5yr [facility] Dr Manuel Hoover Current [...] 1,000 mg by mouth five times daily. AHSHMIW-LJASBZXXY-JXSV ORAL Take by mouth. peg 3350-Electrolytes (GOLYTELY) [...] entered by the nurse and reviewed by sd Nursing Notes: Julieta Avendano RN 05/23/2022 2:10 [...] Katheryn Stokes MD documented in this encounter [facility] 05-23-2022 Instructions Katheryn Stokes MD - 05/23/2022 [...] If you do not have a responsible mixer driver (family member or friend) with you [...] midnight. 2 04/2019 documented in this encounter [facility] 05-23-2022 Nurse Note REVIEW OF SYSTEMS: General: [...] Julieta Avendano RN documented in this encounter [facility] 05-23-2022 Miscellaneous Notes Patient notified at appointment. ----- Message from Brandon Manley MD sent at 05/23/2022 8:06 AM EST ----- Urine culture does not have any growth Regards, Brandon Manley MD documented in this encounter [facility] 05-22-2022 Instructions Gwendolyn Ballard APRN.DOMESTIC HOUSEKEEPER - 05/22/2022 1:39 PM EST Restart omeprazole documented in this encounter [facility] 05-22-2022 History of Present illness Narrative CC: [...] surgery with implants- Dr Jacob Aguilar at [facility] PAST SURGICAL HISTORY OF 07/27/15 cryo ablation, cardiac RPR UMBILICAL HRNA 5 YRS/> REDUCIBLE 07/17/2010 Hernia repair, umbilical >5yr [facility] Dr Manuel Hoover ALLERGIES [...] 1,000 mg by mouth five times daily. HVNSOHI-RGNJZUOPV-FNMP ORAL Take by mouth. FAMILY HISTORY Problem [...] Gwendolyn Ballard APRN.CNP documented in this encounter [facility] 05-21-2022 Miscellaneous Notes Agree with keeping follow [...] Gwendolyn Ballard APRN.CNP documented in this encounter [facility] 05-17-2022 Miscellaneous Notes Patient states symptoms are [...] not felt right. Had surgery up in [place]. Patient is really wanting to go back to work. 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 Please review and advise documented in this encounter [facility] 05-15-2022 Instructions Gwendolyn Ballard APRN.ANITHA - 05/15/2022 11:57 AM EST Call cardiology for follow up. documented in this encounter [facility] 05-15-2022 History of Present illness Narrative CC: [...] Last visit was with different internal Medicine REFRIGERATION MECHANIC HELPER after ER visit. Patient with history of [...] surgery with implants- Dr Jacob Aguilar at [facility] PAST SURGICAL HISTORY OF 07/27/15 cryo ablation, cardiac RPR UMBILICAL HRNA 5 YRS/> REDUCIBLE 07/17/2010 Hernia repair, umbilical >5yr [facility] Dr Manuel Hoover ALLERGIES [...] 1,000 mg by mouth five times daily. VQYVRSQ-IUFXSZPYC-KUWY ORAL Take by mouth. FAMILY HISTORY Problem [...] labs and imaging results. Outside chart from [facility] reviewed. ASSESSMENT/PLAN: 1. Shortness of breath - [...] with more than 50% of the total qxzt-kj-rksi time of the visit in counseling / coordination of care. documented in this encounter [facility] 05-08-2022 Miscellaneous Notes Noted. Will review further [...] Gwendolyn Ballard APRN.ANITHA documented in this encounter [facility] 05-01-2022 Miscellaneous Notes Brianda with Dr. Rider's office at [facility] called for referral and supporting papers faxed to [phone]. Identified pt with name and date of .. Done. Veronica Villar LPN documented in this encounter [facility] 04-30-2022 Miscellaneous Notes PATIENT NOTIFIED OF SAME. Order for US has been faxed to [facility] scheduling office. Recent labs and office note faxed to Dr. Rider's office. Patient had yet to hear from this office about an appointment. Did encourage patient to call his office to schedule a follow up. Barium swallow is scheduled for 05/14/22 at [facility] as that is the [...] came back elevated. documented in this encounter [facility] 04-29-2022 History of Present illness Narrative SUBJECTIVE [...] rate on 04/27/2022. She was seen at [facility] and those records are available for review today and were reviewed with this visit. She had been seen on 04/26 for a virtual visit with another internal medicine provider and then seen in [facility] on 04/27 and advised to go to [...] 1,000 mg by mouth five times daily. PBKPYKW-RQUOCJOJD-WBAC ORAL Take by mouth. 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 Her hands hurt her pretty good. Panlobular Emphysema ([facility]) - 04/28/2015 Atrial Fibrillation ([facility]) - 08/19/2014 Comment: afib 2012. Had cardioversion [...] [facility] [facility]ENTER. We will have her [...] Hodan Stevens APRN-ANITHA documented in this encounter [facility] 04-27-2022 History of Present illness Narrative Called to triage patient by PSS staff Patient presents with complaints of abdominal pain with distention. +trouble breathing Patient had mid abdominal TTP, Slight distention noted Discussed that additional imaging is needed, that is not available. Referred to ED Amicable documented in this encounter [facility] 04-19-2022 Miscellaneous Notes Patient notified. ----- Message from Brandon Manley MD sent at 04/19/2022 1:43 PM EST ----- Chest xr is normal. documented in this encounter [facility] 03-22-2022 Miscellaneous Notes Patient notified. I sent in an updated FMLA form for her to return on 03/25 already, but will print a letter as well. Please notify patient this is ready for picker/puller. Thank you Gwendolyn Ballard APRN.ANITHA Pt called and states she is ready to return to work on Friday03-25-22. Pt requesting a letter that she can return to work without restrictions 03-25-22. Please call when this is ready and her sister will picker/puller for her. Veronica Villar LPN documented in this encounter [facility] 03-20-2022 Miscellaneous Notes Spoke with Ramona, new [...] they will send the message to a mental health specialist. Asha Ortiz, RN Elizabeth was working with the orthopedist for her FMLA, So I am not sure this message is for me But, that being said, yes I think she should be on leave. Regards, Brandon Manley MD Edwardo from [facility] called in wanting to know if the provider had endorsed the Pt being off work. He was asking with what restrictions and when did they advise them to have off. The claim # is [id number]. Please call and advise. documented in this encounter [facility] 03-18-2022 History of Present illness Narrative CC: [...] surgery with implants- Dr Jacob Aguilar at [facility] PAST SURGICAL HISTORY OF 07/27/15 cryo ablation, cardiac RPR UMBILICAL HRNA 5 YRS/> REDUCIBLE 07/17/2010 Hernia repair, umbilical >5yr [facility] Dr Manuel Hoover ALLERGIES [...] 1,000 mg by mouth five times daily. [id number] ORAL Take by mouth. FAMILY HISTORY Problem [...] Gwendolyn Ballard APRN.CNP documented in this encounter [facility] 03-08-2022 Instructions Gwendolyn Ballard APRN.CNP - 03/08/2022 11:34 AM EDT Take omeprazole first thing in the morning 1/2 to 1 hour prior to any other medication. Take antibiotics with food. Can use Tums for any heart burn as directed. documented in this encounter [facility] 03-08-2022 History of Present illness Narrative CC: [...] surgery with implants- Dr Jacob Aguilar at [facility] PAST SURGICAL HISTORY OF 07/27/15 cryo ablation, cardiac RPR UMBILICAL HRNA 5 YRS/> REDUCIBLE 07/17/2010 Hernia repair, umbilical >5yr [facility] Dr Manuel Hoover ALLERGIES [...] 1,000 mg by mouth five times daily. [id number] ORAL Take by mouth. FAMILY HISTORY Problem [...] Gwendolyn Ballard APRN.ANITHA documented in this encounter [facility] 02-25-2022 Miscellaneous Notes Patient saw result via my chart. Alexandra Leonard ----- Message from Brandon Manley MD sent at 02/25/2022 9:40 AM EDT ----- Please let patient know, her covid and flu, were negative Regards, Brandon Manley MD documented in this encounter [facility] 02-22-2022 History of Present illness Narrative Reason [...] surgery with implants- Dr Jacob Aguilar at [facility] PAST SURGICAL HISTORY OF 07/27/15 cryo ablation, cardiac RPR UMBILICAL HRNA 5 YRS/> REDUCIBLE 07/17/2010 Hernia repair, umbilical >5yr [facility] Dr Manuel Hoover FAMILY [...] ORAL) CALCIUM CARBONATE/VITAMIN D3 (VITAMIN D-3 ORAL) [id number] ORAL Review of Systems CONSTITUTIONAL: No fevers, [...] Brandon Manley MD documented in this encounter [facility] 01-21-2022 History of Present illness Narrative Reason [...] surgery with implants- Dr Jacob Aguilar at [facility] PAST SURGICAL HISTORY OF 07/27/15 cryo ablation, cardiac RPR UMBILICAL HRNA 5 YRS/> REDUCIBLE 07/17/2010 Hernia repair, umbilical >5yr [facility] Dr Manuel Hoover FAMILY [...] ORAL) CALCIUM CARBONATE/VITAMIN D3 (VITAMIN D-3 ORAL) [id number] ORAL Review of Systems CONSTITUTIONAL: No fevers, [...] Brandon Manley MD documented in this encounter [facility] 01-04-2022 Miscellaneous Notes Spoke with patient about [...] Mavis Saunders MD documented in this encounter [facility] 01-04-2022 Miscellaneous Notes Called patient verified name [...] hysteropexy Enterocele repair, Posterior colporrhaphy, Perineorrhaphy Cystourethroscopy Corei Lara RN January 04, 2022 11:34 AM documented in this encounter [facility] 12-28-2021 Miscellaneous Notes Per Trinidad Soto CNP she is okay to continue the probiotic. Called patient and made her aware. Tamica Rodriguez LPN Called and made patient aware of Eliquis hold instructions. Patient agreeable. Patient did have a question whether she needs to hold her probiotic since she is holding her vitamins? Received holding instructions from [facility] for patients Eliquis. Per RENEE Quinn patient is okay to hold Eliquis 3 day prior to surgery. Copy of letter given fto Trinidad Soto CNP and original sent to explosive operator bomb to scan. Tamica Rodriguez LPN documented in this encounter [facility] 12-27-2021 History of Present illness Narrative Radiology [...] 2021 10:16 AM documented in this encounter [facility] 12-26-2021 Miscellaneous Notes The patient is aware of the ultrasound appointment tomorrow at [place]. LVM to call back to get her in touch with Dr. Pizarro documented in this encounter [facility] 12-24-2021 History of Present illness Narrative This [...] patient have an advanced directive: No Does [facility] have a copy of the patient's advanced [...] prescribed by anesthesia, internal medicine, surgeon, or REFRIGERATION MECHANIC HELPER Stop NSAIDs, Aspirin (ASA), vitamins, herbal supplements, [...] jewelry, body piercing, makeup, contacts, lotions, nail swiss on fingers, or anything in hair on arrival to surgery Wear low healed shoes and loose fitting clothing Leave all valuables at home or with a family member Directions to [facility] and [facility] Parking/parking validation on the day prior to [...] if after hours patient instructed to call explosive operator bomb and ask for supervisor concrete stone finishing corporate physical security supervisor onc resident. Additional teaching as indicated by patient/family learning needs. PATIENT LEARNING EVALUATION & FOLLOW UP PLAN: Patient and/or family express understanding of upcoming surgery, pre-operative preparation, the operative process, and post-operative instructions. Follow up plan: Complete - No need for follow-up Patient has a post-op appointment scheduled: Yes, 02/04/22 Referral (recommentation): None Educator: Irma Adair APRN.ANITHA [facility] documented in this encounter [facility] 12-24-2021 History and physical note HISTORY AND [...] fevers. Neurological: No history of TIA's, stroke, SHELTER DIRECTOR tumor, impaired sensorium, hemiplegia, paraplegia or quadraplegia. [...] chest pain, congenital heart defect, hyperlipidemia, recent AL, murmur/valvular heart disease, open heart surgery and valve surgery. GI: Positive for: dysphagia (difficulty with pills) and GERD (on rx) Negative for: abdominal pain, hepatitis, irritable bowel syndrome, inflammatory bowel disease, liver disease, nausea, pancreatitis, vomiting and ETOH >2 drinks/day. : Positive for: nephrolithiasis (hx). Negative for: urinary incontinence, renal failure and urinary tract infection. 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 Negative for: vaginal bleeding and [...] surgery with implants- Dr Jacob Aguilar at [facility] PAST SURGICAL HISTORY OF 07/27/15 cryo ablation, cardiac RPR UMBILICAL HRNA 5 YRS/> REDUCIBLE 07/17/2010 Hernia repair, umbilical >5yr [facility] Dr Manuel Cebul FAMILY [...] by mouth five times daily. Taking Yes [id number] ORAL Take by mouth. Taking Yes No [...] or any previous visit (from the past 35490 hour(s)). Assessment Atrial fibrillation (HCC) Assessment: hx cardioversions x2 and ablation, controlled on rx, daily Eliquis, following [facility], pt states had a cardiac [...] large neck Non-male patient STOP-Bang Score: 3 [id number] Score: Age: 65-74 Sex: female CHF history: Yes Hypertension history: Yes Stroke/TIA/thromboembolism history: Yes Vascular disease history: No Diabetes history: No [id number] Score: 6 ARISCAT Score: Age: 51-80 Preoperative [...] and consent discussed: yes. Patient / Responsible Libertarian agrees to proceed: yes Patient / Surrogate agrees to blood products: Yes Prepared for Surgery: optimally prepared for surgery, pending [see comment]. Labs Cardiac clearance and records requested from ultra sound technician office, AC letter faxed CONSULTS: Patient does [...] AM PAGER/CONTACT #: documented in this encounter [facility] 12-24-2021 Instructions Trinidad Soto APRN.CNP - 12/24/2021 8:24 AM EDT PATIENT PREOPERATIVE INSTRUCTIONS Qiana Pizarro MD has scheduled you for your procedure at this surgery center: [facility] [place] Scheduling Office: [phone] --[address] [place] [address]. Please read below carefully for your personalized [...] Procedures: - YOU MUST HAVE A RESPONSIBLE DISTRIBUTION CENTER ASSOCIATE TAKE YOU HOME. A ASSISTANT CLINICAL DIRECTOR OR DUAL RATE DEALER CANNOT BE MADE A RESPONSIBLE DISTRIBUTION CENTER ASSOCIATE. - We recommend that a responsible person [...] call the Friday before. Your surgeon s radiology nurse will tell you what time to call the office. - If you have not reached the departmental radiology nurse by 5 P.M., call [phone] after 5 P.M. the day before your surgery. Please be aware that emergency situations arise, which may delay or change your surgical time. If this happens, we will notify you as soon as possible and regret any inconvenience. If you already have an Advance Directive, please fax a copy to [phone] or email to for it to be [...] Trinidad Soto APRN.ANITHA documented in this encounter [facility] 12-11-2021 Miscellaneous Notes Letter written requesting cardiac [...] days prior to her surgery. The patient's ultra sound technician's contact information is: Dr. Ibarra with [facility] Routing to Dr. Pizarro to advise. Patient has appointment and needs forms to be cleared for surgery faxed to office of Dr. Ibarra [facility]. documented in this encounter [facility] 12-07-2021 History of Present illness Narrative TeleHealth [...] - Stage III / IV Cervix / [place] - Normal support POP-Q: Prolapse Noted: Yes [...] patient was offered a surgery/procedure at a [facility]. The surgeon/proceduralist and patient have discussed in [...] symptoms (15% if incontinence procedure, 20% for nooksack tissue repair, 5-15% if sacrocolpopexy), urinary retention [...] 100mg BID Miralax daiily Send prescriptions to [place] on day of surgery Labs: H/H: [...] would recommend least invasive approach with vaginal nooksack tissue repair. Patient understands that there is [...] (not separately reported). documented in this encounter [facility] 10-17-2021 Miscellaneous Notes Letter printed and taken [...] Felicitas Prince LPN documented in this encounter [facility] 09-21-2021 History of Present illness Narrative Elizabeth [...] L1 SAB1 IAB0 Ectopic0 Multiple0 Live Births0 Outside Machinist Apprentice History LMP: Postmenopausal Age at Menarche: Age at First : Age at Menopause: Outside Machinist Apprentice History Comments: Sexual Activity: Never; Male; Tubal ligation Contraception: Surgical PAST MEDICAL HISTORY Diagnosis Date Anxiety Atrial fibrillation (HCC) s/p ablation 07/2015 Backache, unspecified Carpal tunnel syndrome, bilateral DVT (deep venous thrombosis) ([facility]) remote Esophageal reflux History of [...] PARTIAL/TOTAL UNI/BI 07/17/2010 Oophorectomy - left Dr. Manule Hoover - Dr. Alessio Dahl PAST SURGICAL HISTORY OF NECK SURGERY, anterior fusion PAST SURGICAL HISTORY OF Face lift PAST SURGICAL HISTORY OF back surgery PAST SURGICAL HISTORY OF bilat foot surgey, bunionectomy PAST SURGICAL HISTORY OF benign tumor removed from right breast PAST SURGICAL HISTORY OF 03/2011 B/L cataract surgery with implants- Dr Jacob Aguilar at [facility] PAST SURGICAL HISTORY OF 07/27/15 cryo ablation, cardiac RPR UMBILICAL HRNA 5 YRS/> REDUCIBLE 07/17/2010 Hernia repair, umbilical >5yr [facility] Dr Manuel Hoover FAMILY [...] 1,000 mg by mouth five times daily. [id number] ORAL Take by mouth. No current facility-administered [...] external genitalia normal, normal Bartholin's glands, urethra, [place]'s glands, no vulvar lesions, normal appearing perineal [...] which included preparing to see the patient, [id number] patient care, completing clinical documentation, obtaining and/or reviewing separately obtained history, performing a medically appropriate examination and counseling and educating the patient/family/caregiver Lindsay Lee MD documented in this encounter [facility] 09-07-2021 Miscellaneous Notes Patient notified. She had [...] Gwendolyn Ballard APRN.CNP documented in this encounter [facility] documented as of this encounter (statuses as of 09/07/2021) [facility] History of Past illness Narrative* Problem Noted [...] of this encounter (statuses as of 09/21/2021) [facility] History of Past illness Narrative* Problem Noted [...] of this encounter (statuses as of 10/17/2021) [facility] History of Past illness Narrative* Problem Noted [...] of this encounter (statuses as of 11/12/2021) [facility] History of Past illness Narrative* Problem Noted [...] of this encounter (statuses as of 12/11/2021) [facility] History of Past illness Narrative* Problem Noted [...] of this encounter (statuses as of 12/24/2021) [facility] History of Past illness Narrative* Problem Noted [...] of this encounter (statuses as of 12/24/2021) [facility] History of Past illness Narrative* Problem Noted [...] of this encounter (statuses as of 12/28/2021) [facility] History of Past illness Narrative* Problem Noted [...] of this encounter (statuses as of 12/28/2021) [facility] History of Past illness Narrative* Problem Noted [...] of this encounter (statuses as of 12/30/2021) [facility] History of Past illness Narrative* Problem Noted [...] of this encounter (statuses as of 01/04/2022) [facility] History of Past illness Narrative* Problem Noted [...] of this encounter (statuses as of 01/04/2022) [facility] History of Past illness Narrative* Problem Noted [...] of this encounter (statuses as of 01/21/2022) [facility] History of Past illness Narrative* Problem Noted [...] of this encounter (statuses as of 02/06/2022) [facility] History of Past illness Narrative* Problem Noted [...] of this encounter (statuses as of 02/22/2022) [facility] of Past illness Narrative* Problem Noted [...] of this encounter (statuses as of 02/25/2022) [facility] of Past illness Narrative* Problem Noted [...] of this encounter (statuses as of 03/08/2022) [facility] of Past illness Narrative* Problem Noted [...] of this encounter (statuses as of 03/18/2022) [facility] of Past illness Narrative* Problem Noted [...] of this encounter (statuses as of 03/20/2022) [facility] of Past illness Narrative* Problem Noted [...] of this encounter (statuses as of 03/22/2022) [facility] of Past illness Narrative* Problem Noted [...] of this encounter (statuses as of 04/19/2022) [facility] of Past illness Narrative* Problem Noted [...] of this encounter (statuses as of 04/27/2022) [facility] of Past illness Narrative* Problem Noted [...] of this encounter (statuses as of 04/29/2022) [facility] of Past illness Narrative* Problem Noted [...] of this encounter (statuses as of 04/30/2022) [facility] of Past illness Narrative* Problem Noted [...] of this encounter (statuses as of 05/01/2022) [facility] of Past illness Narrative* Problem Noted [...] of this encounter (statuses as of 05/15/2022) [facility] of Past illness Narrative* Problem Noted [...] of this encounter (statuses as of 05/17/2022) [facility] of Past illness Narrative* Problem Noted [...] of this encounter (statuses as of 05/18/2022) [facility] of Past illness Narrative* Problem Noted [...] of this encounter (statuses as of 05/21/2022) [facility] of Past illness Narrative* Problem Noted [...] of this encounter (statuses as of 05/23/2022) [facility] of Past illness Narrative* Problem Noted [...] of this encounter (statuses as of 05/23/2022) [facility] History of Past illness Narrative* Problem Noted [...] of this encounter (statuses as of 05/23/2022) [facility] of Past illness Narrative* Problem Noted [...] of this encounter (statuses as of 06/08/2022) [facility] of Past illness Narrative* Problem Noted [...] of this encounter (statuses as of 06/08/2022) [facility] Narrative* Problem Noted [...] of this encounter (statuses as of 06/17/2022) [facility] Past illness Narrative* Problem Noted [...] of this encounter (statuses as of 06/19/2022) [facility] of Past [facility] Narrative* Problem Noted [...] of this encounter (statuses as of 07/04/2022) [facility] Narrative* Problem Noted [...] of this encounter (statuses as of 07/08/2022) [facility] Past [facility] Narrative* Problem Noted [...] of this encounter (statuses as of 07/21/2022) [facility] of Past [facility] Narrative* Problem Noted [...] of this encounter (statuses as of 07/25/2022) [facility] Past [facility] Narrative* Problem Noted [...] of this encounter (statuses as of 08/09/2022) [facility] Past illness Narrative* Problem Noted [...] of this encounter (statuses as of 08/30/2022) [facility] of Past illness Narrative* Problem Noted [...] of this encounter (statuses as of 09/05/2022) [facility] Past illness Narrative* Problem Noted [...] of this encounter (statuses as of 10/15/2022) [facility] Past illness Narrative* Problem Noted [...] of this encounter (statuses as of 10/31/2022) [facility] of Past illness Narrative* Problem Noted [...] of this encounter (statuses as of 12/13/2022) [facility] of Past illness Narrative* Problem Noted [...] of this encounter (statuses as of 12/13/2022) [facility] Past illness Narrative* Problem Noted [...] of this encounter (statuses as of 12/27/2022) [facility] of Past illness Narrative* Problem Noted [...] of this encounter (statuses as of 12/27/2022) [facility] Past illness Narrative* Problem Noted [...] of this encounter (statuses as of 12/31/2022) [facility] of Past illness Narrative* Problem Noted [...] of this encounter (statuses as of 01/04/2023) [facility] Past illness Narrative* Problem Noted [...] of this encounter (statuses as of 01/17/2023) [facility] Past illness Narrative* Problem Noted [...] of this encounter (statuses as of 01/24/2023) [facility] Past illness Narrative* Problem Noted [...] of this encounter (statuses as of 01/27/2023) [facility] Past illness Narrative* Problem Noted [...] of this encounter (statuses as of 01/28/2023) [facility] Past illness Narrative* Problem Noted [...] of this encounter (statuses as of 01/28/2023) [facility] Past illness Narrative* Problem Noted [...] of this encounter (statuses as of 02/15/2023) [facility] Past illness Narrative* Problem Noted [...] of this encounter (statuses as of 02/23/2023) [facility] Past illness Narrative* Problem Noted [...] of this encounter (statuses as of 03/03/2023) [facility] Past illness Narrative* Problem Noted [...] of this encounter (statuses as of 03/04/2023) [facility] of Past illness Narrative* Problem Noted [...] of this encounter (statuses as of 03/05/2023) [facility] of Past illness Narrative* Problem Noted [...] of this encounter (statuses as of 03/06/2023) [facility] History of Past illness Narrative* Problem Noted [...] of this encounter (statuses as of 03/16/2023) [facility] History of Past illness Narrative* Problem Noted [...] of this encounter (statuses as of 03/16/2023) [facility] History of Past illness Narrative* Problem Noted [...] of this encounter (statuses as of 03/16/2023) [facility] History of Past illness Narrative* Problem Noted [...] of this encounter (statuses as of 03/16/2023) [facility] History of Past illness Narrative* Problem Noted [...] of this encounter (statuses as of 03/18/2023) [facility] History of Past illness Narrative* Problem Noted [...] of this encounter (statuses as of 03/24/2023) [facility] History of Past illness Narrative* Problem Noted [...] of this encounter (statuses as of 03/25/2023) [facility] History of Past illness Narrative* Problem Noted [...] of this encounter (statuses as of 04/01/2023) [facility] History of Past illness Narrative* Problem Noted [...] of this encounter (statuses as of 04/11/2023) [facility] History of Past illness Narrative* Problem Noted [...] of this encounter (statuses as of 05/02/2023) [facility] Diagnosis 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- Primary [facility] Diagnosis Encounter for screening mammogram for breast cancer documented [facility] Diagnosis Pre-operative examination- Primary Preoperative examination, [...] Hypertonicity of bladder documented in this encounter [facility]* Diagnosis Educational circumstance- Primary 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 Cystocele, midline Rectocele Incomplete uterovaginal prolapse Uterovaginal prolapse, incomplete Preoperative examination Preoperative examination, unspecified Overactive bladder Hypertonicity of bladder documented in this encounter [facility]* Diagnosis 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 Cystocele, midline Rectocele Incomplete uterovaginal prolapse Uterovaginal prolapse, incomplete Preoperative examination Preoperative examination, unspecified Overactive bladder Hypertonicity of bladder 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 Cystocele, midline Rectocele Incomplete uterovaginal prolapse Uterovaginal prolapse, incomplete Preoperative examination Preoperative examination, unspecified Overactive bladder Hypertonicity of bladder documented in this encounter [facility]* Diagnosis Incomplete uterovaginal prolapse- Primary Uterovaginal prolapse, incomplete Cystocele, midline 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 Rectocele Preoperative examination Preoperative examination, unspecified Overactive bladder Hypertonicity of bladder 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 Cystocele, midline Rectocele Incomplete uterovaginal prolapse Uterovaginal prolapse, incomplete Preoperative examination Preoperative examination, unspecified Overactive bladder Hypertonicity of bladder documented in this encounter [facility] note* Diagnosis Congestive heart failure, unspecified HF chronicity, unspecified heart failure type (HCC)- Primary Need for influenza vaccination Need for prophylactic vaccination and inoculation against influenza Frequency of urination Urinary frequency Primary hypertension Unspecified essential hypertension Generalized arthritis Urinary tract infection without hematuria, site unspecified documented in this encounter [facility] note* Diagnosis Sore throat- Primary Acute pharyngitis Chills with fever Fever, unspecified 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 Moses's esophagus documented in this encounter [facility] note* Diagnosis Pneumonia due to infectious organism, unspecified laterality, unspecified part of lung- Primary Congestive heart failure, unspecified HF chronicity, unspecified heart failure type (HCC) Gastroesophageal reflux disease, unspecified whether esophagitis present documented in this encounter [facility] note* Diagnosis Pneumonia due to infectious organism, unspecified laterality, unspecified part of lung- Primary documented in this encounter [facility] note* Diagnosis Abdominal pain, unspecified abdominal location- Primary Difficulty breathing Other dyspnea and respiratory abnormality documented in this encounter [facility] note* Diagnosis Hiatal hernia with GERD without esophagitis- Primary 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 Moses's esophagus Encounter for therapeutic drug monitoring Atrial fibrillation, unspecified type (HCC) documented in this encounter [facility] note* Diagnosis Elevated LFTs- Primary Other abnormal blood chemistry documented in this encounter [facility] note* Diagnosis Shortness of breath- Primary Fever, unspecified fever cause Other fatigue Elevated liver enzymes Other nonspecific abnormal serum enzyme levels Decreased appetite Anorexia Foul smelling urine Other nonspecific finding on examination of urine Dysphagia, unspecified type Hiatal hernia with GERD without esophagitis 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 Moses's esophagus Bilateral lower extremity edema Edema documented in this encounter [facility] note* Diagnosis Fever, unspecified fever cause- Primary Hiatal hernia with GERD without esophagitis documented in this encounter [facility] note* Diagnosis Epigastric pain- Primary Abdominal pain, epigastric Hiatal hernia with GERD without esophagitis Bowel habit changes Other symptoms involving digestive system Other fatigue Nausea Nausea alone Fever, unspecified fever cause documented in this encounter [facility] note* Diagnosis Personal history of colonic polyps- Primary Hiatal hernia with GERD without esophagitis Dysphagia, unspecified type Incisional hernia, without obstruction or gangrene Incisional hernia without mention of obstruction or gangrene documented in this encounter [facility] note* Diagnosis Abdominal pain, unspecified abdominal location- Primary Other fatigue Fever, unspecified fever cause Chills Chills (without fever) Vitamin B12 deficiency Other B-complex deficiencies Vitamin D deficiency Unspecified vitamin D deficiency documented in this encounter [facility] note* Diagnosis Congestive heart failure, unspecified HF chronicity, unspecified heart failure type (HCC)- Primary Atrial fibrillation, unspecified type (HCC) Primary hypertension Unspecified essential hypertension documented in this encounter [facility] note* Diagnosis Incisional hernia, without obstruction or gangrene- Primary Incisional hernia without mention of obstruction or gangrene Dysphagia, unspecified type Hiatal hernia with GERD without esophagitis Personal history of colonic polyps documented in this encounter [facility] note* Diagnosis PAD (peripheral artery disease) (HCC)- Primary Peripheral vascular disease, unspecified documented in this encounter [facility] note* Diagnosis Cerebrovascular accident (CVA), unspecified mechanism (HCC)- Primary documented in this encounter [facility] note* Diagnosis Bradycardia- Primary Other specified cardiac dysrhythmias Acute non-recurrent maxillary sinusitis Congestive heart failure, unspecified HF chronicity, unspecified heart failure type (HCC) Atrial fibrillation, unspecified type (HCC) Panlobular emphysema (HCC) Other emphysema 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 Moses's esophagus documented in this encounter [facility] note* Diagnosis Peripheral arterial disease (HCC)- Primary Peripheral vascular disease, unspecified documented in this encounter [facility] note* Diagnosis Lumbar spondylosis- Primary Lumbosacral spondylosis without myelopathy TIA (transient ischemic attack) Unspecified transient cerebral ischemia documented in this encounter [facility] note* Diagnosis TIA (transient ischemic attack) Unspecified transient cerebral ischemia documented in this encounter [facility] note* Diagnosis Peripheral arterial disease (HCC)- Primary Peripheral vascular disease, unspecified documented in this encounter [facility] note* Diagnosis Atrial fibrillation, unspecified type (HCC)- Primary Generalized arthritis Primary hypertension Unspecified essential hypertension Congestive heart failure, unspecified HF chronicity, unspecified heart failure type (HCC) documented in this encounter [facility] note* Diagnosis Fever, unspecified fever cause- Primary Cough, unspecified type Wheezing Sore throat Acute pharyngitis Bilateral lower extremity edema Edema Congestive heart failure, unspecified HF chronicity, unspecified heart failure type (HCC) documented in this encounter [facility] note* Diagnosis Left lower quadrant abdominal pain- Primary Right lower quadrant abdominal tenderness without rebound tenderness Bowel habit changes Other symptoms involving digestive system Blood in stool documented in this encounter [facility] note* Diagnosis Right lower quadrant abdominal pain- Primary Abdominal pain, right lower quadrant Left lower quadrant abdominal pain Blood in stool Bowel habit changes Other symptoms involving digestive system Stool mucus Nonspecific abnormal finding in stool contents Dark stools Nonspecific abnormal finding in stool contents documented in this encounter [facility] note* Diagnosis C. difficile diarrhea- Primary Intestinal infection due to clostridium difficile documented in this encounter [facility] note* Diagnosis History of recent hospitalization- [...] on supplemental oxygen documented in this encounter [facility] note* Diagnosis Pneumonia due to infectious organism, unspecified laterality, unspecified part of lung- Primary Atrial fibrillation, unspecified type (HCC) Abnormal EKG Nonspecific abnormal electrocardiogram (ECG) (EKG) Congestive heart failure, unspecified HF chronicity, unspecified heart failure type (HCC) documented in this encounter [facility] note* Diagnosis SOB (shortness of breath) Shortness of breath documented in this encounter [facility] note* Diagnosis Stage 3 severe COPD by GOLD classification ([facility])- Primary Acute bronchitis, unspecified organism Former cigarette smoker Personal history of tobacco use, presenting hazards to health Paroxysmal atrial fibrillation (HCC) Atrial fibrillation documented in this encounter [facility] note* Diagnosis Atrial fibrillation, unspecified type [...] Fall, initial encounter documented in this encounter [facility] note* Diagnosis Primary hypertension- Primary Unspecified essential hypertension Chronic congestive heart failure, unspecified heart failure type (HCC) Chronic obstructive pulmonary disease, unspecified COPD type (HCC) Paroxysmal atrial fibrillation (HCC) Atrial fibrillation Encounter for immunization Need for other specified prophylactic vaccination against single bacterial disease documented in this encounter [facility] note* Diagnosis Paroxysmal atrial fibrillation (HCC)- Primary Atrial fibrillation Chronic obstructive pulmonary disease with acute exacerbation (HCC) Obstructive chronic bronchitis with exacerbation History of Clostridium difficile colitis Personal history of other diseases of digestive system Chronic congestive heart failure, unspecified heart failure type (HCC) documented in this encounter [facility] note* Diagnosis Generalized arthritis documented in this encounter [facility] note* Diagnosis Chronic obstructive pulmonary disease, unspecified COPD type (HCC)- Primary Generalized arthritis documented in this encounter [facility]* Diagnosis Hiatal hernia with GERD without esophagitis Personal history of colonic polyps documented in this encounter [facility] note* Diagnosis Left lower quadrant abdominal pain Right lower quadrant abdominal tenderness without rebound tenderness Bowel habit changes Other symptoms involving digestive system Blood in stool documented in this encounter [facility] note* Diagnosis COVID-19 virus infection- Primary documented in this encounter [facility] note* Diagnosis Acute non-recurrent sinusitis, unspecified location- Primary documented in this encounter [facility] for referral (narrative)* Diagnostic Procedure Only (Routine) - Pending Review Specialty Diagnoses / Procedures Referred By Dimitri larios Referred To Contact BR IMAGING Diagnoses Encounter for screening mammogram for breast cancer Procedures CLARIBEL SCREENING SCREENING MAMMOGRAPHY BI 2-VIEW BREAST INC CAD Brandon Manley MD [facility] [place] [address] [facility] [address] [place] [address] Referral ID Status Reason Start Date Expiration Date Visits Requested Visits Authorized [id number] Pending Review Auto-Generat ed Referral 11/07/2021 12/07/2022 1 1 [facility] for referral (narrative)* Diagnostic Procedure Only (Routine) - Closed Specialty Diagnoses / Procedures Referred By Dimitri larios Referred To Contact US IMAGING Diagnoses 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 Cystocele, midline Rectocele Incomplete uterovaginal prolapse Preoperative examination Overactive bladder Procedures US FEMALE PELVIS TRANSVAG US TRANSVAGINAL Qiana Pizarro MD [address] [place] [address] Us Imaging Referral ID Status Reason Start Date Expiration Date V isits Requested Visits Authorized [id number] Closed Auto-Generate d Referral 12/04/2021 01/03/2023 1 1 T [facility] for referral (narrative)* Diagnostic Procedure Only (Routine) - Pending Review Specialty Diagnoses / Procedures Referred By Dimitri t Referred To Contact XR IMAGING Diagnoses Hiatal hernia with GERD without esophagitis Procedures XR MODIFIED BARIUM SWALLOW W SPEECH THERAPY RADIOLOGIC EXAM SWALLOW FUNCTION CONTRAST STUDY Hodan Stevens APRN.CNP [address] [place] [address] [facility] [address] [place] [address] Referral ID Status Reason Start Date Expiration Date Visits Requested Visits Authorized [id number] Pending Review Auto-Generat ed Referral 2 05/29/2023 1 1 [facility] for referral (narrative)* Diagnostic Procedure Only (Routine) - Authorized Specialty Diagnoses / Procedures [facility] Referred To Contact [facility] IMAG[facility] Diagnoses Elevated LFTs Procedures US ABD RT UPPER QUADRANT US ABDOMINAL REAL TIME W/IMAGE LIMITED Hodan Stevens APRN.CNP [address] [place] [address] Us Imaging Referral ID Status Reason Start Date Expiration Date Visits Requested Visits Authorized [id number] Authorized Auto-Generat ed Referral 2 05/30/2023 1 1 [facility] for referral (narrative)* Outpatient Procedure (Routine) - Authorized Specialty Diagnoses / Procedures [facility] Diagnoses Peripheral arterial disease (HCC) Procedures PVR LEG W/EXC [facility] VAS LAB N-INVAS PHYSIOLOGIC STD LXTR ART COMPL BI Zuleyma Meredith DO [address] [place] [address] [facility] [place] [address] [place] [address] Referral ID Status Reason Start Date Expiration Date Visits Requested Visits Authorized [id number] Authorized Auto-Generat ed Referral 09/03/2022 09/03/2023 1 1 [facility] for referral (narrative)* Outpatient Procedure (Routine) - Closed Specialty Diagnoses / Procedures Referred By Contac t Referred To Contact [facility] Diagnoses SOB (shortness of breath) Procedures LUNG DIFFUSION CAPACITY (DLCO) DIFFUSING CAPACITY Sylvia Gamboa MD [address] [place] [address] [address] Referral ID Status Reason Start Date Expiration Date V isits Requested Visits Authorized [id number] Closed Auto-Generate d Referral 01/27/2023 02/26/2024 1 1 * Outpatient Procedure (Routine) - Closed Specialty Diagnoses / Procedures Referred By Contac t Referred To Contact [facility] Diagnoses SOB (shortness of breath) Procedures SPIROMETRY WITH DILATOR IF OBSTRUCTED BRNCDILAT RSPSE SPMTRY PRE&POST-BRNCDILAT ADMN Sylvia Gamboa MD [address] [facility] [place] [address] [place] [phone] Referral ID Status Reason Start Date Expiration Date V isits Requested Visits Authorized [id number] Closed Auto-Generate d Referral 01/27/2023 05/11/2023 1 1 [facility] Advance Directives No Advanced Directives Records FoundDocuments on File Type Date Recorded Patient Director Of Restaurants Expl anation Advance Directive(s) 02/28/2016 12:15 PM Advance Directive(s) 02/21/2016 9:18 AM Advance Directive(s) 11/22/2015 12:01 PM Advance Directive(s) 11/10/2015 11:55 AM Documents on File Type Date Recorded Patient Director Of Restaurants Expl anation Advance Directive(s) 02/28/2016 12:15 PM Advance Directive(s) 02/21/2016 9:18 AM Advance Directive(s) 11/22/2015 12:01 PM Advance Directive(s) 11/10/2015 11:55 AM Reason for Referral Specialty Diagnoses / Procedures Referred By Contac t Referred To Contact Diagnoses 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 Procedures CONSULT TO FEMALE UROLOGY/URO GYNECOLOGY OFFICE/OUTPATIENT [facility] 60-74 MINUTES Lindsay Gongora MD [address] [place] [address] Referral ID Status Reason Start Date Expiration Date Visits Requested Visits Authorized [id number] Authorized PCP Requested Referral 09/21/2021 09/21/2022 1 1 Specialty Diagnoses / Procedures Referred By Contac t Referred To Contact Gastroenterology Diagnoses Elevated liver enzymes Decreased appetite Hiatal hernia with GERD without esophagitis 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 Procedures CONSULT TO GASTROENTEROLOGY OFFICE/OUTPATIENT [facility] 60-74 MINUTES 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, 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 [address] [place] [address] Referral ID Status Reason Start Date Expiration Date Visits Requested Visits Authorized [id number] Authorized PCP Requested Referral 05/15/2022 05/15/2023 1 1 Specialty Diagnoses / Procedures Referred By Contac t Referred To Contact General Surgery Diagnoses Hiatal hernia with GERD without esophagitis Procedures CONSULT TO GENERAL SURGERY OFFICE/OUTPATIENT [facility] 60-74 MINUTES 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, 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 [address] [place] [phone] Referral ID Status Reason Start Date Expiration Date Visits Requested Visits Authorized [id number] Authorized PCP Requested Referral 05/17/2022 05/17/2023 1 1 Specialty Diagnoses / Procedures Referred By Contac t Referred To Contact Infectious Diseases Diagnoses Fever, unspecified fever cause Procedures CONSULT TO INFECTIOUS DISEASES OFFICE/OUTPATIENT [facility] 60-74 MINUTES 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, 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 [address] [place] [phone] Referral ID Status Reason Start Date Expiration Date Visits Requested Visits Authorized [id number] Authorized PCP Requested Referral 05/22/2022 05/22/2023 1 1 Specialty Diagnoses / Procedures Referred By Contac t Referred To Contact CT IMAGING Diagnoses Hiatal hernia with GERD without esophagitis Personal history of colonic polyps Procedures CT ABD/PEL WO IVCON CT ABD & PELVIS W/O CONTRAST Katheryn Stokes MD [address] [place] [address] Ct Imaging Referral ID Status Reason Start Date Expiration Date Visits Requested Visits Authorized [id number] Pending Review Auto-Generat ed Referral 05/23/2022 06/22/2023 1 1 Specialty Diagnoses / Procedures Referred By Contac t Referred To Contact DIGESTIVE DISEASE [facility] Diagnoses Hiatal hernia with GERD without esophagitis Personal history of colonic polyps Procedures COLONOSCOPY SCREENING COLONOSCOPY FLX DX W/COLLJ SPEC WHEN PFRMD Katheryn Stokes MD [address] [place] [address] [address] Referral ID Status Reason Start Date Expiration Date Visits Requested Visits Authorized [id number] Authorized Auto-Generat ed Referral 05/23/2022 05/23/2023 1 1 Specialty Diagnoses / Procedures Referred By Contac t Referred To Contact DIGESTIVE DISEASE RAYMOND Diagnoses Hiatal hernia with GERD without esophagitis Personal history of colonic polyps Procedures EGD DIAGNOSTIC ESOPHAGOGASTRODUODENOSC OPY TRANSORAL DIAGNOSTIC Katheryn Stokes MD [address] [facility] [place] [address] [address] Referral ID Status Reason Start Date Expiration Date Visits Requested Visits Authorized [id number] Authorized Auto-Generat ed Referral 05/23/2022 05/23/2023 1 1 Specialty Diagnoses / Procedures Referred By Contac t Referred To Contact Vascular Surgery Diagnoses PAD (peripheral artery disease) (HCC) Procedures CONSULT TO VASCULAR SURGERY OFFICE/OUTPATIENT [facility] 60-74 MINUTES Brandon Manley MD [address] [place] [address] Referral ID Status Reason Start Date Expiration Date Visits Requested Visits Authorized [id number] Pending Review PCP Requested Referral 07/23/2022 07/19/2023 1 1 Specialty Diagnoses / Procedures Referred By Contac t Referred To Contact Neurology Diagnoses Cerebrovascular accident (CVA), unspecified mechanism (HCC) Gwendolyn Ballard CNP [address] [place] [address] [facility] Referral ID Status Reason Start Date Expiration Date V isits Requested Visits Authorized [id number] Pending Review 08/19/2022 08/19/2023 1 1 Specialty Diagnoses / Procedures Referred By Contac t Referred To Contact Diagnoses Lumbar spondylosis Talia Haque MD [address] [facility] [place] [address] [place] [address] [facility] [address] [place] [address] Referral ID Status Reason Start Date Expiration Date Visits Requested Visits Authorized [id number] Pending Review Patient Preference 09/13/2022 09/13/2023 1 1 Specialty Diagnoses / Procedures Referred By Contac t Referred To Contact CT IMAGING Diagnoses Left lower quadrant abdominal pain Right lower quadrant abdominal tenderness without rebound tenderness Bowel habit changes Blood in stool Procedures CT ABD/PEL W IVCON CT ABD & PELVIS W/CONTRAST Gwendolyn Ballard APRN.DOMESTIC HOUSEKEEPER [address] [place] [address] [place] [address] Referral ID Status Reason Start Date Expiration Date Visits Requested Visits Authorized [id number] Waiting for Online Response Auto-Generat ed Referral 12/26/2022 01/25/2024 2 2 Specialty Diagnoses / Procedures Referred By Contac t Referred To Contact Cardiology / [facility] [place] Diagnoses Atrial fibrillation, unspecified type (HCC) Bradycardia Shortness of breath Congestive heart failure, unspecified HF chronicity, unspecified heart failure type (HCC) On home oxygen therapy Procedures CONSULT TO CARDIOLOGY OFFICE/OUTPATIENT [facility] MDM 60-74 MINUTES Gwendolyn Ballard APRN.DOMESTIC HOUSEKEEPER [address] [place] [address] [address] [address] [place] [address] Referral ID Status Reason Start Date Expiration Date Visits Requested Visits Authorized [id number] Pending Review PCP Requested Referral OON/Self Pay Override 01/23/2023 01/23/2024 1 1 Specialty Diagnoses / Procedures Referred By Contac t Referred To Contact XR IMAGING Diagnoses Fall, initial encounter Acute pain of right shoulder Procedures XR SHOULDER [id number] AP/TRUE AP RIGHT RADEX SHOULDER COMPLETE MINIMUM 2 VIEWS Gwendolyn Ballard APRN.[employer] [address] [place] [address] [place] [address] Referral ID Status Reason Start Date Expiration Date V isits Requested Visits Authorized [id number] Closed Auto-Generate d Referral 01/23/2023 02/22/2024 1 1 Specialty Diagnoses / Procedures Referred By Contac t Referred To Contact [facility] Diagnoses Atrial fibrillation, unspecified type (HCC) Bradycardia Procedures ECG COMPLETE ECG ROUTINE ECG W/LEAST 12 LDS W/I&R Gwendolyn Ballard APRN.[employer] [address] [place] [address] [facility] [address] [place] [address] Referral ID Status Reason Start Date Expiration Date V isits Requested Visits Authorized [id number] Closed Auto-Generate d Referral 01/23/2023 01/23/2024 1 1 Specialty Diagnoses / Procedures Referred By Contac t Referred To Contact CT IMAGING Diagnoses Hiatal hernia with GERD without esophagitis Personal history of colonic polyps Procedures CT ABD/PEL WO IVCON CT ABD & PELVIS W/O CONTRAST Katheryn Stokes MD [address] [place] [address] [facility] [place] [address] Referral ID Status Reason Start Date Expiration Date V isits Requested Visits Authorized [id number] Closed Auto-Generate d Referral 05/24/2022 05/11/2023 2 2 Referral ID Status Reason Start Date Expiration Date V isits Requested Visits Authorized [id number] Closed Auto-Generate d Referral 12/26/2022 01/25/2023 1 [...] or prosecute any alcohol or drug abuse patient.[facility] HospitalIn the event this information is protected by the Federal Confidentiality of Alcohol and Drug Abuse Patient Records regulations: The Federal rules restrict any use of the information to criminally investigate or prosecute any alcohol or drug abuse patient.[facility] HospitalIn the event this information is protected by the Federal Confidentiality of Alcohol and Drug Abuse Patient Records regulations: The Federal rules restrict any use of the information to criminally investigate or prosecute any alcohol or drug abuse patient.[facility] HospitalIn the event this information is protected by the Federal Confidentiality of Alcohol and Drug Abuse Patient Records regulations: The Federal rules restrict any use of the information to criminally investigate or prosecute any alcohol or drug abuse patient.[facility] HospitalIn the event this information is protected by the Federal Confidentiality of Alcohol and Drug Abuse Patient Records regulations: The Federal rules restrict any use of the information to criminally investigate or prosecute any alcohol or drug abuse patient.[facility] HospitalIn the event this information is protected by the Federal Confidentiality of Alcohol and Drug Abuse Patient Records regulations: The Federal rules restrict any use of the information to criminally investigate or prosecute any alcohol or drug abuse patient.[facility] HospitalIn the event this information is protected by the Federal Confidentiality of Alcohol and Drug Abuse Patient Records regulations: The Federal rules restrict any use of the information to criminally investigate or prosecute any alcohol or drug abuse patient.[facility] HospitalIn the event this information is protected by the Federal Confidentiality of Alcohol and Drug Abuse Patient Records regulations: The Federal rules restrict any use of the information to criminally investigate or prosecute any alcohol or drug abuse patient.[facility] HospitalIn the event this information is protected by the Federal Confidentiality of Alcohol and Drug Abuse Patient Records regulations: The Federal rules restrict any use of the information to criminally investigate or prosecute any alcohol or drug abuse patient.[facility] HospitalIn the event this information is protected by the Federal Confidentiality of Alcohol and Drug Abuse Patient Records regulations: The Federal rules restrict any use of the information to criminally investigate or prosecute any alcohol or drug abuse patient.[facility] HospitalIn the event this information is protected by the Federal Confidentiality of Alcohol and Drug Abuse Patient Records regulations: The Federal rules restrict any use of the information to criminally investigate or prosecute any alcohol or drug abuse patient.[facility] HospitalIn the event this information is protected by the Federal Confidentiality of Alcohol and Drug Abuse Patient Records regulations: The Federal rules restrict any use of the information to criminally investigate or prosecute any alcohol or drug abuse patient.[facility] HospitalIn the event this information is protected by the Federal Confidentiality of Alcohol and Drug Abuse Patient Records regulations: The Federal rules restrict any use of the information to criminally investigate or prosecute any alcohol or drug abuse patient.[facility] HospitalIn the event this information is protected by the Federal Confidentiality of Alcohol and Drug Abuse Patient Records regulations: The Federal rules restrict any use of the information to criminally investigate or prosecute any alcohol or drug abuse patient.[facility] HospitalIn the event this information is protected by the Federal Confidentiality of Alcohol and Drug Abuse Patient Records regulations: The Federal rules restrict any use of the information to criminally investigate or prosecute any alcohol or drug abuse patient.[facility] HospitalIn the event this information is protected by the Federal Confidentiality of Alcohol and Drug Abuse Patient Records regulations: The Federal rules restrict any use of the information to criminally investigate or prosecute any alcohol or drug abuse patient.[facility] HospitalIn the event this information is protected by the Federal Confidentiality of Alcohol and Drug Abuse Patient Records regulations: The Federal rules restrict any use of the information to criminally investigate or prosecute any alcohol or drug abuse patient.[facility] HospitalIn the event this information is protected by the Federal Confidentiality of Alcohol and Drug Abuse Patient Records regulations: The Federal rules restrict any use of the information to criminally investigate or prosecute any alcohol or drug abuse patient.[facility] HospitalIn the event this information is protected by the Federal Confidentiality of Alcohol and Drug Abuse Patient Records regulations: The Federal rules restrict any use of the information to criminally investigate or prosecute any alcohol or drug abuse patient.[facility] HospitalIn the event this information is protected by the Federal Confidentiality of Alcohol and Drug Abuse Patient Records regulations: The Federal rules restrict any use of the information to criminally investigate or prosecute any alcohol or drug abuse patient.[facility] HospitalIn the event this information is protected by the Federal Confidentiality of Alcohol and Drug Abuse Patient Records regulations: The Federal rules restrict any use of the information to criminally investigate or prosecute any alcohol or drug abuse patient.[facility] HospitalIn the event this information is protected by the Federal Confidentiality of Alcohol and Drug Abuse Patient Records regulations: The Federal rules restrict any use of the information to criminally investigate or prosecute any alcohol or drug abuse patient.[facility] HospitalIn the event this information is protected by the Federal Confidentiality of Alcohol and Drug Abuse Patient Records regulations: The Federal rules restrict any use of the information to criminally investigate or prosecute any alcohol or drug abuse patient.[facility] HospitalIn the event this information is protected by the Federal Confidentiality of Alcohol and Drug Abuse Patient Records regulations: The Federal rules restrict any use of the information to criminally investigate or prosecute any alcohol or drug abuse patient.[facility] HospitalIn the event this information is protected by the Federal Confidentiality of Alcohol and Drug Abuse Patient Records regulations: The Federal rules restrict any use of the information to criminally investigate or prosecute any alcohol or drug abuse patient.[facility] HospitalIn the event this information is protected by the Federal Confidentiality of Alcohol and Drug Abuse Patient Records regulations: The Federal rules restrict any use of the information to criminally investigate or prosecute any alcohol or drug abuse patient.[facility] HospitalIn the event this information is protected by the Federal Confidentiality of Alcohol and Drug Abuse Patient Records regulations: The Federal rules restrict any use of the information to criminally investigate or prosecute any alcohol or drug abuse patient.[facility] HospitalIn the event this information is protected by the Federal Confidentiality of Alcohol and Drug Abuse Patient Records regulations: The Federal rules restrict any use of the information to criminally investigate or prosecute any alcohol or drug abuse patient.[facility] HospitalIn the event this information is protected by the Federal Confidentiality of Alcohol and Drug Abuse Patient Records regulations: The Federal rules restrict any use of the information to criminally investigate or prosecute any alcohol or drug abuse patient.[facility] HospitalIn the event this information is protected by the Federal Confidentiality of Alcohol and Drug Abuse Patient Records regulations: The Federal rules restrict any use of the information to criminally investigate or prosecute any alcohol or drug abuse patient.[facility] HospitalIn the event this information is protected by the Federal Confidentiality of Alcohol and Drug Abuse Patient Records regulations: The Federal rules restrict any use of the information to criminally investigate or prosecute any alcohol or drug abuse patient.[facility] HospitalIn the event this information is protected by the Federal Confidentiality of Alcohol and Drug Abuse Patient Records regulations: The Federal rules restrict any use of the information to criminally investigate or prosecute any alcohol or drug abuse patient.[facility] HospitalIn the event this information is protected by the Federal Confidentiality of Alcohol and Drug Abuse Patient Records regulations: The Federal rules restrict any use of the information to criminally investigate or prosecute any alcohol or drug abuse patient.[facility] HospitalIn the event this information is protected by the Federal Confidentiality of Alcohol and Drug Abuse Patient Records regulations: The Federal rules restrict any use of the information to criminally investigate or prosecute any alcohol or drug abuse patient.[facility] HospitalIn the event this information is protected by the Federal Confidentiality of Alcohol and Drug Abuse Patient Records regulations: The Federal rules restrict any use of the information to criminally investigate or prosecute any alcohol or drug abuse patient.[facility] HospitalIn the event this information is protected by the Federal Confidentiality of Alcohol and Drug Abuse Patient Records regulations: The Federal rules restrict any use of the information to criminally investigate or prosecute any alcohol or drug abuse patient.[facility] HospitalIn the event this information is protected by the Federal Confidentiality of Alcohol and Drug Abuse Patient Records regulations: The Federal rules restrict any use of the information to criminally investigate or prosecute any alcohol or drug abuse patient.[facility] HospitalIn the event this information is protected by the Federal Confidentiality of Alcohol and Drug Abuse Patient Records regulations: The Federal rules restrict any use of the information to criminally investigate or prosecute any alcohol or drug abuse patient.[facility] HospitalIn the event this information is protected by the Federal Confidentiality of Alcohol and Drug Abuse Patient Records regulations: The Federal rules restrict any use of the information to criminally investigate or prosecute any alcohol or drug abuse patient.[facility] HospitalIn the event this information is protected by the Federal Confidentiality of Alcohol and Drug Abuse Patient Records regulations: The Federal rules restrict any use of the information to criminally investigate or prosecute any alcohol or drug abuse patient.[facility] HospitalIn the event this information is protected by the Federal Confidentiality of Alcohol and Drug Abuse Patient Records regulations: The Federal rules restrict any use of the information to criminally investigate or prosecute any alcohol or drug abuse patient.[facility] HospitalIn the event this information is protected by the Federal Confidentiality of Alcohol and Drug Abuse Patient Records regulations: The Federal rules restrict any use of the information to criminally investigate or prosecute any alcohol or drug abuse patient.[facility] HospitalIn the event this information is protected by the Federal Confidentiality of Alcohol and Drug Abuse Patient Records regulations: The Federal rules restrict any use of the information to criminally investigate or prosecute any alcohol or drug abuse patient.[facility] HospitalIn the event this information is protected by the Federal Confidentiality of Alcohol and Drug Abuse Patient Records regulations: The Federal rules restrict any use of the information to criminally investigate or prosecute any alcohol or drug abuse patient.[facility] HospitalIn the event this information is protected by the Federal Confidentiality of Alcohol and Drug Abuse Patient Records regulations: The Federal rules restrict any use of the information to criminally investigate or prosecute any alcohol or drug abuse patient.[facility] HospitalIn the event this information is protected by the Federal Confidentiality of Alcohol and Drug Abuse Patient Records regulations: The Federal rules restrict any use of the information to criminally investigate or prosecute any alcohol or drug abuse patient.[facility] HospitalIn the event this information is protected by the Federal Confidentiality of Alcohol and Drug Abuse Patient Records regulations: The Federal rules restrict any use of the information to criminally investigate or prosecute any alcohol or drug abuse patient.[facility] HospitalIn the event this information is protected by the Federal Confidentiality of Alcohol and Drug Abuse Patient Records regulations: The Federal rules restrict any use of the information to criminally investigate or prosecute any alcohol or drug abuse patient.[facility] HospitalIn the event this information is protected by the Federal Confidentiality of Alcohol and Drug Abuse Patient Records regulations: The Federal rules restrict any use of the information to criminally investigate or prosecute any alcohol or drug abuse patient.[facility] HospitalIn the event this information is protected by the Federal Confidentiality of Alcohol and Drug Abuse Patient Records regulations: The Federal rules restrict any use of the information to criminally investigate or prosecute any alcohol or drug abuse patient.[facility] HospitalIn the event this information is protected by the Federal Confidentiality of Alcohol and Drug Abuse Patient Records regulations: The Federal rules restrict any use of the information to criminally investigate or prosecute any alcohol or drug abuse patient.[facility] HospitalIn the event this information is protected by the Federal Confidentiality of Alcohol and Drug Abuse Patient Records regulations: The Federal rules restrict any use of the information to criminally investigate or prosecute any alcohol or drug abuse patient.[facility] HospitalIn the event this information is protected by the Federal Confidentiality of Alcohol and Drug Abuse Patient Records regulations: The Federal rules restrict any use of the information to criminally investigate or prosecute any alcohol or drug abuse patient.[facility] HospitalIn the event this information is protected by the Federal Confidentiality of Alcohol and Drug Abuse Patient Records regulations: The Federal rules restrict any use of the information to criminally investigate or prosecute any alcohol or drug abuse patient.[facility] HospitalIn the event this information is protected by the Federal Confidentiality of Alcohol and Drug Abuse Patient Records regulations: The Federal rules restrict any use of the information to criminally investigate or prosecute any alcohol or drug abuse patient.[facility] HospitalIn the event this information is protected by the Federal Confidentiality of Alcohol and Drug Abuse Patient Records regulations: The Federal rules restrict any use of the information to criminally investigate or prosecute any alcohol or drug abuse patient.[facility] HospitalIn the event this information is protected by the Federal Confidentiality of Alcohol and Drug Abuse Patient Records regulations: The Federal rules restrict any use of the information to criminally investigate or prosecute any alcohol or drug abuse patient.[facility] HospitalIn the event this information is protected by the Federal Confidentiality of Alcohol and Drug Abuse Patient Records regulations: The Federal rules restrict any use of the information to criminally investigate or prosecute any alcohol or drug abuse patient.[facility] HospitalIn the event this information is protected by the Federal Confidentiality of Alcohol and Drug Abuse Patient Records regulations: The Federal rules restrict any use of the information to criminally investigate or prosecute any alcohol or drug abuse patient.[facility] HospitalIn the event this information is protected by the Federal Confidentiality of Alcohol and Drug Abuse Patient Records regulations: The Federal rules restrict any use of the information to criminally investigate or prosecute any alcohol or drug abuse patient.[facility] HospitalIn the event this information is protected by the Federal Confidentiality of Alcohol and Drug Abuse Patient Records regulations: The Federal rules restrict any use of the information to criminally investigate or prosecute any alcohol or drug abuse patient.[facility] HospitalIn the event this information is protected by the Federal Confidentiality of Alcohol and Drug Abuse Patient Records regulations: The Federal rules restrict any use of the information to criminally investigate or prosecute any alcohol or drug abuse patient.[facility] HospitalIn the event this information is protected by the Federal Confidentiality of Alcohol and Drug Abuse Patient Records regulations: The Federal rules restrict any use of the information to criminally investigate or prosecute any alcohol or drug abuse patient.[facility] HospitalIn the event this information is protected by the Federal Confidentiality of Alcohol and Drug Abuse Patient Records regulations: The Federal rules restrict any use of the information to criminally investigate or prosecute any alcohol or drug abuse patient.[facility] HospitalIn the event this information is protected by the Federal Confidentiality of Alcohol and Drug Abuse Patient Records regulations: The Federal rules restrict any use of the information to criminally investigate or prosecute any alcohol or drug abuse patient.[facility] HospitalIn the event this information is protected by the Federal Confidentiality of Alcohol and Drug Abuse Patient Records regulations: The Federal rules restrict any use of the information to criminally investigate or prosecute any alcohol or drug abuse patient.[facility] HospitalIn the event this information is protected by the Federal Confidentiality of Alcohol and Drug Abuse Patient Records regulations: The Federal rules restrict any use of the information to criminally investigate or prosecute any alcohol or drug abuse patient.[facility] HospitalIn the event this information is protected by the Federal Confidentiality of Alcohol and Drug Abuse Patient Records regulations: The Federal rules restrict any use of the information to criminally investigate or prosecute any alcohol or drug abuse patient.[facility] HospitalIn the event this information is protected by the Federal Confidentiality of Alcohol and Drug Abuse Patient Records regulations: The Federal rules restrict any use of the information to criminally investigate or prosecute any alcohol or drug abuse patient.[facility] HospitalIn the event this information is protected by the Federal Confidentiality of Alcohol and Drug Abuse Patient Records regulations: The Federal rules restrict any use of the information to criminally investigate or prosecute any alcohol or drug abuse patient.[facility] HospitalIn the event this information is protected by the Federal Confidentiality of Alcohol and Drug Abuse Patient Records regulations: The Federal rules restrict any use of the information to criminally investigate or prosecute any alcohol or drug abuse patient.[facility] HospitalIn the event this information is protected by the Federal Confidentiality of Alcohol and Drug Abuse Patient Records regulations: The Federal rules restrict any use of the information to criminally investigate or prosecute any alcohol or drug abuse patient.[facility] Reason for Visit (unrecogniz ed section and content) Specialty Diagnoses / Procedures Referred By Dimitri larios Referred To Contact Internal Medicine / INTERNAL MEDICINE Diagnoses Follow-up exam 3 month follow up Procedures OFFICE/OUTPATIENT ESTABLISHED HIGH MDM 40-54 MIN 4C EST Brandon Manley MD [address] [place] [address] Brandon Manley MD [address] [place] [address] Referral ID Status Reason Start Date Expiration Date V isits Requested Visits Authorized [id number] Authorized 09/24/2021 05/11/2022 99 99 Reason Comments Results Reason Comments Consult Specialty Diagnoses / Procedures Referred By Contac t Referred To Contact [employer] Diagnoses CONCERN - PROLAPSE Procedures OFFICE/OUTPATIENT ESTABLISHED LOW MDM 20-29 MIN EST WHI PATIENT Self Lindsay Gongora MD [address] [place] [address] Referral ID Status Reason Start Date Expiration Date Visits Re quested Visits Authorized [id number] Closed 09/21/2021 05/11/2022 1 1 Reason Comments Patient Update Reason Comments Preparations For Surgery Reason Comments Consult Specialty Diagnoses / Procedures Referred By Contact Referred To Contact Anesthesiology / ANESTHESIOLOGY Diagnoses 01/01 no surgery scheduled main [place] [address] [place] [address] 1[facility] [address] [place] [address] Referral ID Status Reason Start Date Expiration Date Visits Re quested Visits Authorized [id number] Closed 12/19/2021 03/19/2022 1 1 Reason Comments Pre-Op Visit Specialty Diagnoses / Procedures Referred By Contac t Referred To Contact Gynecology / UROL FISHING ACCESSORIES MAKER Diagnoses pre op teaching Procedures PHYS/QHP TELEPHONE EVALUATION 11-20 MIN TELEVISIT Qiana Pizarro MD [address] [place] [address] Irma Adair APRN.DOMESTIC HOUSEKEEPER [address] [place] [address] x2 Referral ID Status Reason Start Date Expiration Date V isits Requested Visits Authorized [id number] Authorized 12/24/2021 05/11/2022 99 99 Reason Comments Radiology US Specialty Diagnoses / Procedures Referred By Contac t Referred To Contact US IMAGING Diagnoses 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 Cystocele, midline Rectocele Incomplete uterovaginal prolapse Preoperative examination Overactive bladder Procedures US FEMALE PELVIS TRANSVAG US TRANSVAGINAL Qiana Pizarro MD [address] [place] [address] Us Imaging Referral ID Status Reason Start Date Expiration Date V isits Requested Visits Authorized [id number] Closed Auto-Generate d Referral 12/04/2021 01/03/2023 1 1 Reason Comments Patient Update Surgery instructions Reason Comments Vaginal Problem Specialty Diagnoses / Procedures Referred By Contac t Referred To Contact SUPERVISOR SANDING / UROL FISHING ACCESSORIES 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 Diagnoses pre op Procedures PHYS/QHP TELEPHONE EVALUATION 5-10 MIN PHYS/QHP TELEPHONE EVALUATION 11-20 MIN PHYS/QHP TELEPHONE EVALUATION 21-30 MIN PROVIDER SPECIALTY PHONE CALL MD Juarez Norton, MD Qiana [address] [place] [address] Referral ID Status Reason Start Date Expiration Date Visits Re quested Visits Authorized [id number] Closed 12/07/2021 05/11/2022 1 1 Reason Comments Post Op Pain Reason Onset Date Comments F/U 3 months Immunizations 01/21/2022 Flu vaccination Reason Comments Future Appointment Reason Comments Sore Throat Specialty Diagnoses / Procedures Referred By Contac t Referred To Contact Internal Medicine / INTERNAL MEDICINE Diagnoses sore throat x 3 days Procedures 4C EST Self Brandon Manley MD [address] [place] [address] Referral ID Status Reason Start Date Expiration Date Visits Re quested Visits Authorized [id number] Closed 02/22/2022 05/23/2022 1 1 Reason Comments Recheck Follow up Specialty Diagnoses / Procedures Referred By Contac t Referred To Contact Internal Medicine / INTERNAL MEDICINE Diagnoses Follow up pneumonia Procedures 4C EST Brandon Manley MD [address] [place] [address] Gwendolyn Ballard APRN.DOMESTIC HOUSEKEEPER [address] [place] [address] Referral ID Status Reason Start Date Expiration Date Visits Re quested Visits Authorized [id number] Closed 03/18/2022 06/16/2022 1 1 Reason Comments [...] 4C EST HOSP/ER FU Self Hodan Stevens APRN.DOMESTIC HOUSEKEEPER [address] [place] [address] Referral ID Status Reason Start Date Expiration Date Visits Re quested Visits Authorized [id number] Closed 04/29/2022 05/11/2022 1 1 Reason Comments Results Reason Comments fax referral to outside Reason Comments Recheck Follow up, review re sults Specialty Diagnoses / Procedures Referred By Contac t Referred To Contact Internal Medicine / INTERNAL MEDICINE Diagnoses Follow-up exam US follow up Procedures OFFICE/OUTPATIENT ESTABLISHED MOD MDM 30-39 MIN 4C Brandon Etienne MD [facility] [place] [address] Gwendolyn Ballard APRN.DOMESTIC HOUSEKEEPER [address] [place] [address] Referral ID Status Reason Start Date Expiration Date Visits Re quested Visits Authorized [id number] Closed 05/09/2022 05/11/2023 1 1 Reason Comments Patient Update Reason Comments Recheck Follow up, review tricia [place] Reason Comments Consult Hiatal hernia Specialty Diagnoses / Procedures Referred By Contac t Referred To Contact General Surgery / GENERAL SURGERY Diagnoses Hiatal hernia with GERD without esophagitis Procedures CONSULT TO GENERAL SURGERY OFFICE/OUTPATIENT NEW HIGH MDM 60-74 MINUTES Gwendolyn Ballard, SORAYA.DOMESTIC HOUSEKEEPER [address] [place] [address] [facility] [address] [place] [address] Referral ID Status Reason Start Date Expiration Date V isits Requested Visits Authorized [id number] Closed PCP Requested Referral 05/17/2022 05/17/2023 1 1 Reason Comments 2 week follow-up Specialty Diagnoses / Procedures Referred By Contac t Referred To Contact Internal Medicine / INTERNAL MEDICINE Diagnoses 2 week follow up Procedures OFFICE/OUTPATIENT ESTABLISHED MOD MDM 30-39 MIN 4C EST Self Brandon Manley MD [address] [place] [address] Referral ID Status Reason Start Date Expiration Date Visits Re quested Visits Authorized [id number] Closed 06/08/2022 05/11/2023 1 1 Reason Comments [...] 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 [facility]. Specialty Diagnoses / Procedures Referred By Dimitri Referred To Contact Neurology Diagnoses Cerebrovascular accident (CVA), unspecified mechanism (HCC) Gwendolyn Ballard, ANITHA [address] [place] [address] [facility] Referral ID Status Reason Start Date Expiration Date V isits Requested Visits Authorized [id number] Pending Review 08/19/2022 08/19/2023 1 1 Reason Onset Date Comments Medication Refill 09/13/2022 Reason Comments Established Patient Reason Comments Recheck 2 month Reason Comments Recheck Follow up, fever Reason Comments Hospital F/U SOB, hospital follow up-pneumonia, CHF Reason Comments Follow Up 1 week follow up- in a fib, dizziness, leg swelling, SOB, fatigue Reason Comments Spirometry Specialty Diagnoses / Procedures [facility] Referred To Contact PULMONARY MEDICINE Diagnoses COPD (chronic obstructive pulmonary disease) ([facility]) Procedures OFFICE CONSULTATION NEW/ESTAB PATIENT 15 MIN Gwendolyn Ballard APRN.DOMESTIC HOUSEKEEPER [address] [place] [address] [facility]m [facility] [address] [place] [address] Referral ID Status Reason Start Date Expiration Date V isits Requested Visits Authorized [id number] Closed OON/Self Pay Override 01/27/2023 05/11/2023 1 1 Reason Comments New Patient COPD Specialty Diagnoses / Procedures Referred By Contac t Referred To Contact PULMONARY MEDICINE Diagnoses COPD (chronic obstructive pulmonary disease) (HCC) Procedures OFFICE CONSULTATION NEW/ESTAB PATIENT 15 MIN Gwendolyn Ballard APRN.DOMESTIC HOUSEKEEPER [address] [place] [address] [facility] [address] [place] [address] Reason Comments Hospital F/U Reason Comments Recheck Follow up Reason Comments Follow Up Specialty Diagnoses / Procedures Referred By Contac t Referred To Contact INTERNAL MEDICINE Diagnoses follow up Procedures OFFICE CONSULTATION NEW/ESTAB PATIENT 15 MIN Phil Oden MD [address] [place] [address] [facility] [address] [place] [address] Referral ID Status Reason Start Date Expiration Date Visits Requested Visits Authorized [id number] Pending Review OON/Self Pay Override 01/23/2023 07/22/2023 1 1 Reason Comments Medication Clarification Reason Comments Follow Up return to work [employer] and needs handicap placard Specialty Diagnoses / Procedures Referred By Contac t Referred To Contact FAMILY MEDICINE Diagnoses f/u Procedures f/u Brandon Manley MD [address] [place] [address] [facility] [address] [place] [address] Referral ID Status Reason Start Date Expiration Date Visits Requested Visits Authorized [id number] Pending Review OON/Self Pay Override 02/10/2023 08/09/2023 [address] Specialty Diagnoses / Procedures Referred By Contac t Referred To Contact CT IMAGING Diagnoses Hiatal hernia with GERD without esophagitis Personal history of colonic polyps Procedures CT ABD/PEL WO IVCON CT ABD & PELVIS W/O CONTRAST Katheryn Stokes MD [address] [place] [address] [place] [address] Referral ID Status Reason Start Date Expiration Date V isits Requested Visits Authorized [id number] Closed Auto-Generate d Referral 05/24/2022 05/11/2023 2 2 Specialty Diagnoses / Procedures Referred By Dimitri larios Referred To Contact CT IMAGING Diagnoses Left lower quadrant abdominal pain Right lower quadrant abdominal tenderness without rebound tenderness Bowel habit changes Blood in stool Procedures CT ABD/PEL W IVCON CT ABD & PELVIS W/CONTRAST Gwendolyn Ballard APRN.DOMESTIC HOUSEKEEPER [address] [place] [address] [place] [address] Referral ID Status Reason Start Date Expiration Date V isits Requested Visits Authorized [id number] Closed Auto-Generate d Referral 12/26/2022 01/25/2023 1 1 Reason Comments Covid19 Concern Reason Comments Results Nocturnal oximetry Reason Onset Date Comments Refill Request 03/23/2023 Reason Comments Refill Request Care Teams (unrecognized sec tion and content) Director Group Sales Relationship Specialty Start Date End Date Brandon Manley MD [address] [place], [place] [id number] [phone] PCP - General Internal Medicine 09/25/15 Fred, Cramerton S Specialty [facility] 03/19/13 Director Group Sales Relationship Specialty Start Date End Date Brandon Manley MD [address] [place] [address] PCP - General Internal Medicine 09/25/15 Rfed, Cramerton S Specialty [facility] Cardiology 03/19/13 Director Group Sales Relationship Specialty Start Date End Date Brandon Manley MD [address] [place] [address] PCP - General Internal Medicine 09/25/15 Fred, Cramerton S Specialty [facility] Cardiology 03/19/13 Director Group Sales Relationship Specialty Start Date End Date Brandon Manley MD [address] [place] [address] PCP - General Internal Medicine 09/25/15 Fred, Cramerton S Specialty [facility] Cardiology 03/19/13 Director Group Sales Relationship Specialty Start Date End Date Brandon Manley MD [address] [place] [address] PCP - General Internal Medicine 09/25/15 Fred, Maxim S Specialty [facility] Card[facility] 03/19/13 Director Group Sales Relationship Specialty Start Date End Date Brandon Manley MD [address] [place] [address] PCP - General Internal Medicine 09/25/15 Fred, Cramerton S Specialty [facility] Card[facility] 03/19/13 Director Group Sales Relationship Specialty Start Date End Date Brandon Manley MD [address] [place] [address] PCP - General Internal Medicine 09/25/15 Fred, Cramerton S Specialty [facility] 03/19/13 Director Group Sales Relationship Specialty Start Date End Date Brandon Manley MD [address] [place] [address] PCP - General Internal Medicine 09/25/15 Fred, Cramerton S Specialty [facility] 03/19/13 Director Group Sales Relationship Specialty Start Date End Date Brandon Manley MD [address] [place] [address] PCP - General Internal Medicine 09/25/15 Fred, Cramerton S Specialty [facility] Card[facility] 03/19/13 Director Group Sales Relationship Specialty Start Date End Date Brandon Manley MD [address] [place] [address] PCP - General Internal Medicine 09/25/15 Fred, Maxim S Specialty [facility] Cardiology 03/19/13 Director Group Sales Relationship Specialty Start Date End Date Brandon Manley MD [address] [place] [address] PCP - General Internal Medicine 09/25/15 Fred, Maxim S Specialty [facility] 03/19/13 Director Group Sales Relationship Specialty Start Date End Date Brandon Manley MD [address] [place] [address] PCP - General Internal Medicine 09/25/15 Fred, Cramerton S Specialty [facility] Card[facility] 03/19/13 Director Group Sales Relationship Specialty Start Date End Date Brandon Manley MD [address] [place] [address] PCP - General Internal Medicine 09/25/15 Fred, Cramerton S Specialty [facility] Cardiology 03/19/13 Director Group Sales Relationship Specialty Start Date End Date Brandon Manley MD [address] [place] [address] PCP - General Internal Medicine 09/25/15 Fred, Cramerton S Specialty [facility] Cardiology 03/19/13 Director Group Sales Relationship Specialty Start Date End Date Brandon Manley MD [address] [facility] [place] [address] PCP - General Internal Medicine 09/25/15 Fred, Maxim S Specialty [facility] Cardiology 03/19/13 Director Group Sales Relationship Specialty Start Date End Date Brandon Manley MD [address] [place] [address] PCP - General Internal Medicine 09/25/15 Fred, Maxim S Specialty [facility] Cardiology 03/19/13 Director Group Sales Relationship Specialty Start Date End Date Brandon Manley MD [address] [place] [address] PCP - General Internal Medicine 09/25/15 Fred, Maxim S Specialty [facility] Cardiology 03/19/13 Director Group Sales Relationship Specialty Start Date End Date Brandon Manley MD [address] [place] [address] PCP - General Internal Medicine 09/25/15 Fred, Maxim S Specialty [facility] Cardiology 03/19/13 Director Group Sales Relationship Specialty Start Date End Date Brandon Manley MD [address] [place] [address] PCP - General Internal Medicine 09/25/15 Fred, Maxim S Specialty [facility] Card[facility] 03/19/13 Director Group Sales Relationship Specialty Start Date End Date Brandon Manley MD [address] [place] [address] PCP - General Internal Medicine 09/25/15 Fred, Cramerton S Specialty [facility] Card[facility] 03/19/13 Director Group Sales Relationship Specialty Start Date End Date Brandon Manley MD [address] [place] [address] PCP - General Internal Medicine 09/25/15 Fred, Cramerton S Specialty [facility] Card[facility] 03/19/13 Director Group Sales Relationship Specialty Start Date End Date Brandon Manley MD [address] [facility] [place] [address] PCP - General Internal Medicine 09/25/15 Fred, Maxim S Specialty [facility] Cardiology 03/19/13 Director Group Sales Relationship Specialty Start Date End Date Brandon Manley MD [address] [place] [address] PCP - General Internal Medicine 09/25/15 Fred, Cramerton S Specialty [facility] Cardiology 03/19/13 Director Group Sales Relationship Specialty Start Date End Date Brandon Manley MD [address] [place] [address] PCP - General Internal Medicine 09/25/15 Fred, Cramerton S Specialty [facility] Cardiology 03/19/13 Director Group Sales Relationship Specialty Start Date End Date Brandon Manley MD [address] [facility] [place] [address] PCP - General Internal Medicine 09/25/15 Fred, Cramerton S Specialty [facility] Card[facility] 03/19/13 Director Group Sales Relationship Specialty Start Date End Date Brandon Manley MD [address] [place] [address] PCP - General Internal Medicine 08/19/22 Director Group Sales Relationship Specialty Start Date End Date Brandon Manley MD [address] [place] [address] PCP - General Internal Medicine 09/25/15 Fred, Cramerton S Specialty [facility] Card[facility] 03/19/13 Director Group Sales Relationship Specialty Start Date End Date Brandon Manley MD [address] [place] [address] PCP - General Internal Medicine 08/19/22 Director Group Sales Relationship Specialty Start Date End Date Brandon Manley MD [address] [place] [address] PCP - General Internal Medicine 08/19/22 Director Group Sales Relationship Specialty Start Date End Date Brandon Manley MD [address] [place] [address] PCP - General Internal Medicine 09/25/15 Fred, Maxim S Specialty [facility] 03/19/13 Director Group Sales Relationship Specialty Start Date End Date Brandon Manley MD [address] [place] [address] PCP - General Internal Medicine 09/25/15 Fred, Maxim S Specialty [facility] 03/19/13 Director Group Sales Relationship Specialty Start Date End Date Brandon Manley MD [address] [place] [address] PCP - General Internal Medicine 09/25/15 Fred, Maxim S Specialty [facility] Card[facility] 03/19/13 Director Group Sales Relationship Specialty Start Date End Date Brandon Manley MD [address] [place] [address] PCP - General Internal Medicine 09/25/15 Fred Maxim S Specialty [facility] 03/19/13 Director Group Sales Relationship Specialty Start Date End Date Brandon Manley MD [address] [place] [address] PCP - General Internal Medicine 09/25/15 FredStephen del rioril S Specialty [facility] 03/19/13 Director Group Sales Relationship Specialty Start Date End Date Brandon Manley MD [address] [place] [address] PCP - General Internal Medicine 09/25/15 FredStephen del rioril S Specialty [facility] 03/19/13 Director Group Sales Relationship Specialty Start Date End Date Brandon Manley MD [address] [place] [address] PCP - General Internal Medicine 09/25/15 FredStephen del rioril S Specialty [facility] 03/19/13 Director Group Sales Relationship Specialty Start Date End Date Brandon Manley MD [address] [place] [address] PCP - General Internal Medicine 09/25/15 Fred, Cramerton S Specialty [facility] Cardiology 03/19/13 Director Group Sales Relationship Specialty Start Date End Date Brandon Manley MD [address] [place] [address] PCP - General Internal Medicine 09/25/15 Fred, Cramerton S Specialty [facility] Cardiology 03/19/13 Director Group Sales Relationship Specialty Start Date End Date Brandon Manley MD [address] [place] [address] PCP - General Internal Medicine 09/25/15 Fred, Cramerton S Specialty [facility] Cardiology 03/19/13 Director Group Sales Relationship Specialty Start Date End Date Brandon Manley MD [address] [place] [address] PCP - General Internal Medicine 09/25/15 Fred, Cramerton S Specialty [facility] Cardiology 03/19/13 Director Group Sales Relationship Specialty Start Date End Date Brandon Manley MD [address] [place] [address] PCP - General Internal Medicine 09/25/15 Fred, Maxim S Specialty [facility] Cardiology 03/19/13 Director Group Sales Relationship Specialty Start Date End Date Brandon Manley MD [address] [facility] [place] [address] PCP - General Internal Medicine 09/25/15 Maxim Ibarra MD Specialty [facility] 03/19/13 Director Group Sales Relationship Specialty Start Date End Date Brandon Manley MD [address] [facility] [place] [address] PCP - General Internal Medicine 09/25/15 Maxim Ibarra MD Specialty [facility] 03/19/13 Director Group Sales Relationship Specialty Start Date End Date Brandon Manley MD [address] [facility] [place] [address] PCP - General Internal Medicine 09/25/15 Maxim Ibarra MD Specialty [facility] 03/19/13 Director Group Sales Relationship Specialty Start Date End Date Brandon Manley MD [address] [facility] [place] [address] PCP - General Internal Medicine 09/25/15 Maxim Ibarra MD Specialty [facility] 03/19/13 Director Group Sales Relationship Specialty Start Date End Date Brandon Manley MD [address] [place] [address] PCP - General Internal Medicine 09/25/15 Maxim Ibarra MD Specialty [facility] 03/19/13 Director Group Sales Relationship Specialty Start Date End Date Brandon Manley MD [address] [place] [address] PCP - General Internal Medicine 09/25/15 Maxim Ibarra MD Specialty [facility] 03/19/13 Director Group Sales Relationship Specialty Start Date End Date Brandon Manley MD [address] [place] [address] PCP - General Internal Medicine 09/25/15 Maxim Ibarra MD Specialty [facility] 03/19/13 Director Group Sales Relationship Specialty Start Date End Date Brandon Manley MD [address] [place] [address] PCP - General Internal Medicine 09/25/15 Maxim Ibarra MD Specialty [facility] 03/19/13 Director Group Sales Relationship Specialty Start Date End Date Brandon Manley MD [address] [place] [address] PCP - General Internal Medicine 09/25/15 Maxim Ibarra MD Specialty [facility] 03/19/13 Director Group Sales Relationship Specialty Start Date End Date Brandon Manley MD [address] [place] [address] PCP - General Internal Medicine 09/25/15 Maxim Ibarra MD Specialty [facility] 03/19/13 Director Group Sales Relationship Specialty Start Date End Date Brandon Manley MD [address] [facility] [place] [address] PCP - General Internal Medicine 09/25/15 Maxim Ibarra MD Specialty [facility] 03/19/13 INFORMATION SOURCE (unrecogn ized section and content) DATE CREATED AUTHOR AUTHOR'S [facility] 05/31/2023 [facility] FOR RECORDS PERTAINING TO PATIENTS WHO ARE [...] BE BASED ON THE PRIMARY CLINICAL RECORDS. [employer] [facility]. provides no warranty or guarantee of the accuracy or completeness of information in this document.
== END | disposition home or self-care (01) ==
PROVIDERS: PCP Internal Medicine; Referring Provider Physician Assistant Medical; Visit Provider Physician Assistant Medical
DX: I48.19 Other persistent atrial fibrillation (principal)
CPT/HCPCS: 36415; 80048

== ENCOUNTER 2023-07-04 10:54 | Day surgery (SDC) | payer OTHER, MEDICARE, SELFPAY ==
--- NOTE | 2023-06-24 14:35 | HP.PCM_ITS ---
History and Physical Date of Admission: 07/04/23 SHERRELL DELGADO, is a 77 F who presents to the label drier today for a cardioversion. She has a history of previous atrial fibrillation for which she was hospitalized and underwent a ARIS guided cardioversion.?Patient presented to her PCP in May 2022 with complaints of shortness of breath with minimal exertion and leg weakness. She states her heart rates have been in the 90s while working, and increases to 140 on her recumbent exercise bike. At some point her flecainide had gotten discontinued and she was placed on amiodarone for her atrial fibrillation. She states that she is allergic to amiodarone due to worsening dyspnea on exertion. This was discontinued at her last office visit, and she was placed back on flecainide. She had been scheduled for an outpatient cardioversion on 08/06/2022, but had successfully cardioverted on her own. Patient presented to the emergency room on 08/08/2022 with strokelike symptoms. Patient presented because of facial droop, altered sensation and left sided weakness. She had not missed any doses of her Eliquis. Her heart rate was noted to be low at 38. Her metoprolol and Flecainide were placed on hold at that time. Her heart rate did improve. Her CT of the head without contrast revealed no evidence of subdural, epidural, subarachnoid hemorrhage or intraparenchymal hemorrhage. There was no obvious stroke noted. Her MRI of the brain was also negative. 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 She was later discharged from the hospital and instructed to follow with neurology for suspected stroke due to symptomatology. She states she is scheduled to see vascular-Dr. Persaud at [facility] next week. She was seen in the Emergency Room on 12/31/2022 for shortness of breath. Per EMS report she was noted be 80% on room air and placed on CPAP therapy. She received IV Lasix. Her BNP, 394.7, was elevated and her troponin was normal. Her ECG showed sinus rhythm. She was admitted and treated for respiratory failure secondary to acute on chronic congestive heart failure and suspected pneumonia. She underwent an echocardiogram on 12/31/2022 that showed ejection fraction of 60% and moderately enlarged left atrium. She had 24-hour Holter monitor evaluation in May 2023 that showed atrial fibrillation with an average heart rate of 107 bpm. She did not tolerate higher dose of metoprolol on account of low heart rate. On account the rhythm, she will proceed with cardioversion. She does have a history to not telling amiodarone on account of dyspnea. She denies chest, arm, jaw, or neck discomfort. She states episodes of palpitations with heart rates in the 80s. This resolves on its own. She denies bilateral lower extremity edema. She denies claudication. She denies shortness of breath with activity, shortness of breath at rest, orthopnea, or PND. She denies chronic cough. She denies significant, sudden weight gain. She denies lightheadedness, dizziness, near-syncope, or syncope. She denies blood in urine, blood in stool, or epistaxis. He denies fever with chills. She denies myalgia. She states fatigue. Her exercise level has remained stable. Intake Vital Signs: See EMR Intake Visit Reasons: D[facility]V Director [facility] Required: No Is patient in pain?: No Allergies etodolac Allergy (Intermediate, Verified 02/04/23 09:51) Other diltiazem HCl [From Cardizem] Allergy (Verified 02/04/23 09:51) Swelling of face and neck naproxen Allergy (Verified 02/04/23 09:51) Swelling (whole body)prednisone Allergy (Verified 02/04/23 09:51) Other amiodarone Adverse Reaction (Severe, Verified 02/04/23 09:51) Severe dyspnea after taking PO Amiodarone adhesive Adverse Reaction (Verified 02/04/23 09:51) Rash albuterol Adverse Reaction (Verified 02/04/23 09:51) Other codeine Adverse Reaction (Verified 02/04/23 09:51) Vomiting hydrocodone bitartrate [From Vicodin] Adverse Reaction (Verified 02/04/23 09:51) Vomiting morphine Adverse Reaction (Verified 02/04/23 09:51) Vomiting Medications See EMR [facility] Medical History Abnormal bruising Acute cholecystitis Acute stroke due to ischemia Arthritis Atrial fibrillation Atrial fibrillation with RVR (10/31/18) Moses's esophagus Calculus of kidney Cancer Cardiomyopathy in other diseases classified elsewhere Carpal tunnel syndrome Chest pain Chronic diastolic (congestive) heart failure Chronic neck and back pain Diarrhea Difficulty balancing when standing GERD (gastroesophageal reflux disease) Heart disease History of DVT (deep vein thrombosis) 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 Non-rheumatic tricuspid valve insufficiency Nonrheumatic aortic valve stenosis Panlobular emphysema Paroxysmal atrial fibrillation Rotator cuff tear Scoliosis of cervical spine Shoulder pain SOB (shortness of breath) Tendonitis of shoulder, right Tubular adenoma of colon URI (upper respiratory infection) Surgical History H/O hernia repair H/O neck surgery History of cardioversion (11/23/18) History of left heart catheterization (03/15/13) History of radiofrequency ablation procedure for cardiac arrhythmia (07/27/15) Hx of cholecystectomy Hx of fusion of cervical spine ovarian surgery Family History Sister AfibFather CAD (coronary artery disease)Brother CVA (cerebral vascular accident)Mother No problems noted. Sister No problems noted. Brother Wilsons diseaseBrother Wilsons disease Social History Smoking Status: Former smoker alcohol intake: never substance use type: does not use caffeine: Yes Type: coffee Number of servings: 1 what type of physical activity do you participate in: walking frequency: daily seatbelt use: always do you feel safe at home: Yes ROS Const Const: Negative for fatigue, weakness, body ache, fever(s) or chills ENT ENT: Negative for dizziness or Nosebleed/epistaxis Cardio Chest Pain: No Palpitations: Yes Edema: None Muscle aches with walking: None Resp Respiratory: Negative for SOB with activity, SOB at rest, SOB orthopnea\SOB lying down, Cough or paroxysmal nocturnal dyspnea GI GI: Negative nausea, vomiting blood/hematemesis, bright, red blood in stools or black,tarry stools : Negative for hematuria or frequent nighttime urination/ nocturia Musc Musc: Negative for muscle aches/ myalgia Skin Skin: Negative non-healing lesions or rash Neuro Neuro: Negative for dizziness, lightheadedness, near syncope, syncope, orthostatic symptoms or weakness Endo Endo: Negative for fatigue Allergy Allergy/Immunology: Negative for rash Cardiology Exam Const Appearance: cooperative, healthy appearing, comfortable and no acute distress Nutritional Appearance: well nourished and overweight Orientation: alert, awake and oriented x3 Head Head: normal to inspection Ears: hearing grossly normal bilaterally Nose: external nose normal Face and Sinus: face symmetric Mouth: moist mucous membranes Eyes General: appearance normal, both eyes and all related structures Eyelids: eyelids normal EOM: EOM intact bilaterally Neck Neck: normal visual inspection and no JVD Carotids: normal carotid upstroke Chest Chest inspection: normal inspection of the chest, symmetric chest movement and normal respiratory effort; Negative cough Auscultation: Bilateral: Clear to Auscultation Cardio Rate: Normal Rhythm: irregular rhythm Heart sounds: S1 normal and S2 normal; Negative rub, gallop or murmur GI GI: normal to inspection Neuro General: patient alert, patient awake, patient oriented x3 and CN's II-XI intact bilaterally Skin Skin: no rashes or lesions noted Extremities Pulses: Normal: Right Posterior Tibial Pulse, Left Posterior Tibial Pulse, Right Radial Pulse and Left Radial Pulse Lower Extremity Edema: None: Bilateral Psych Psychological: normal affect Supplemental Info Supplemental Information Echocardiogram 12/31/22 Interpretation Summary: The left ventricular ejection fraction is 60 %. Diastolic function is indeterminate. The left atrium is moderately enlarged. Aortic sclerosis, no stenosis. Mild (1+) mitral valve insufficiency. The study was technically difficult. Echocardiogram 08/06/22 Interpretation Summary: Normal LV size. Left ventricular systolic function is normal. The estimated ejection fraction is 55 %. Stage 3 diastolic dysfunction. Pulmonary artery systolic pressure is 46 mmHg. Mild focal aortic valve calcification. Contrast injection was performed. Stress Test 04/08/22 Conclusion: Normal pharmacologic myocardial perfusion stress test. Preserved ejection fraction. Transesophageal echocardiogram from 11/02/18 Interpretation Summary: Normal LV size. The estimated ejection fraction is 50 %. No regional wall motion abnormalities noted. The left atrium is moderately enlarged. No thrombus is detected in the left atrial appendage. Mild-Moderate (1-2+) eccentric mitral valve insufficiency. Cardiac catheterization 03/15/13 Normal left main coronary artery Left anterior descending artery which is normal Left circumflex artery with no significant disease Dominant right coronary artery with no significant disease Preserved ejection fraction Carotid Duplex Ultrasound 09/29/18 Interpretation Summary: Minimal smooth plague right internal carotid with <50% stenosis. <50% stenosis right external carotid Intimal thickening left internal carotid with <50% stenosis. <50% stenosis left external carotid Patent and antegrade vertebrals bilaterally Assessment and Plan Assessment and Plan (1) Paroxysmal atrial fibrillation: Status: Chronic Comment: DCCV 2012, 2014, 11/02/18, 11/23/18, unsuccessful radiofrequency ablation in July 2015; Plan: Her most recent Holter monitor showed atrial fibrillation. She will proceed with cardioversion. She is currently on Eliquis for CVA protection, metoprolol for rate control, and flecainide for rate and rhythm control. As noted above, she has not tolerated amiodarone previously on account of dyspnea. We may consider retrying it. (2) Chronic diastolic (congestive) heart failure: Status: Chronic Plan: Nonischemic cardiomyopathy with preserved EF: Echocardiogram 12/31/2022-EF: 60% Twelve-lead EC02/04/2023-Sinus bradycardia at a rate of 58 bpm with QRS 110 and a rate variation. [employer] Functional Class: I ACC/AHA stage: C Guideline Directed Medical Therapy: Metoprolol succinate 12.5 mg p.o. twice daily Valsartan 20 mg p.o. daily Jardiance 10 mg p.o. daily We will continue to focus on adequate rate and rhythm control. As she does have a preserved ejection fraction. We will follow response and continue to adjust medications as needed. She appears to be euvolemic and will continue Lasix on a as needed basis. Other future options may include spironolactone to assist with volume control. 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 This was seen on her most recent MRA. She will continue to follow with Dr. Persaud-Vascular for it. We will continue to monitor heart rate and blood pressure. (4) Fatigue: Status: Resolved Plan: At this time, we will continue to monitor. We will monitor heart rate closely to discern if this is related to bradycardia or rhythm.
[2023-07-03 08:16] VITALS: BMI 34.9
--- OUTSIDE RECORDS SUMMARY | 2023-07-04 11:24 | XMS RPT_ITS | CCD ---
Author Name Unknown Address [address] [place] [address] Organization [facility] Care Team Providers Care Buncher Hand Name Role Phone Fred, Maxim S Unavailable Sindhu HICKS, Brandon Primary Care Provider Brandon Shaver MD [place] Primary Care Provider Fred, Maxim S Unavailable Brandon Shaver MD Primary Care Provider [phone] OLDER, GWENDOLYN Referring Unavailable OLDER, GWENDOLYN Admitting Unavailable TALIA HAQUE Attending Unavailable GANTA, BRANDON YOON Primary Care Unavailable GANTA, BRANDON YOON Primary Care Unavailable TALIA HAQUE Attending Unavailable Fred, [place] S Unavailable Fred HICKS [place] S Unavailable GANTA, BRANDON Primary Care Unavailable OLDER, GWENDOLYN Attending Unavailable GANTA, BRANDON Primary Care Unavailable ZULEYMA MEREDITH Referring Unavailable GANTA, BRANDON Primary Care Unavailable OLDER, GWENDOLYN Attending Unavailable OLDER, GWENDOLYN Referring Unavailable GANTA, BRANDON Primary Care Unavailable GANTA, BRANDON Primary Care Unavailable OLDER, GWENDOLYN Referring Unavailable GANTA, BRANDON Primary Care Unavailable OLDER, GWENDOLYN Referring Unavailable GANTA, BRANDON Primary Care Unavailable OLDER, GWENDOLYN Attending Unavailable GANTA, BRANDON Primary Care Unavailable OLDER, GWENDOLYN Referring Unavailable GANTA, BRANDON Primary Care Unavailable TALAMPJUSTICE, PHIL D Referring Unavailable TALAMPAS, PHIL D Attending Unavailable GANTA, BRANDON Primary Care Unavailable GANTA, BRANDON Referring Unavailable DAVIN VICTOR Attending Unavailable GANTA, BRANDON Primary Care Unavailable OLDER, GWENDOLYN Attending Unavailable KATHERYN STOKES Attending Unavailable GANTA, BRANDON Primary Care Unavailable OLDER, GWENDOLYN Attending Unavailable GANTA, BRANDON Primary Care Unavailable GANTA, BRANDON Attending Unavailable GANTA, BRANDON Primary Care Unavailable GANTA, BRANDON Primary Care Unavailable OLDER, GWENDOLYN Attending Unavailable GANTA, BRANDON Primary Care Unavailable OLDER, GWENDOLYN Referring Unavailable GANTA, BRANDON Primary Care Unavailable OLDER, GWENDOLYN Referring Unavailable GANTA, BRANDON Primary Care Unavailable OLDER, GWENDOLYN Attending Unavailable GANTA, BRANDON Primary Care Unavailable OLDER, GWENDOLYN Referring Unavailable GANTA, BRANDON Primary Care Unavailable GANTA, BRANDON Referring Unavailable GANTA, BRANDON Primary Care Unavailable OLDER, GWENDOLYN Referring Unavailable SYLVIA GAMBOA Attending Unavailable GANTA, BRANDON Primary Care Unavailable OLDER, GWENDOLYN Referring Unavailable GANTA, BRANDON Primary Care Unavailable OLDER, GWENDOLYN Attending Unavailable GANTA, BRANDON Attending Unavailable GANTA, BRANDON Primary Care Unavailable GANTA, BRANDON Primary Care Unavailable MEREDITHZULEYMA D Referring Unavailable MEREDITH, ZULEYMA D Attending Unavailable GANTA, BRANDON Primary Care Unavailable OLDER, GWENDOLYN Attending Unavailable GANTA, BRANDON Primary Care Unavailable LUPE DOE Attending Unavailable GANTA, BRANDON Primary Care Unavailable OLDER, GWENDOLYN Attending Unavailable GANTA, BRANDON Primary Care Unavailable OLDER, GWENDOLYN Attending Unavailable GANTA, BRANDON Primary Care Unavailable OLDER, GWENDOLYN Referring Unavailable GANTA, BRANDON Primary Care Unavailable OLDER, GWENDOLYN Referring Unavailable OLDER, GWENDOLYN Attending Unavailable GANTA, BRANDON Primary Care Unavailable MEREDITH, ZULEYMA D Attending Unavailable GANTA, BRANDON Primary Care Unavailable GANTA, BRANDON Primary Care Unavailable SYLVIA GAMBOA Attending Unavailable KATHERYN STOKES Attending Unavailable GANTA, BRANDON Primary Care Unavailable Allergies Allergy Classification Reported Allergen(s) Allergy Type Date of Onset Reaction(s) Facility (20 sources) Codeine; Translations: [CODEINE] Drug Allergy 6 Vomiting, Nausea and vomiting [facility] (20 sources) dilTIAZem; Translations: [DILTIAZEM HCL] Drug Allergy 5 Swelling [facility] Work Phone: (20 sources) Etodolac; Translations: [ETODOLAC] Drug Allergy 3 Other: See Comments, Palpitations [facility] (20 sources) guaiFENesin / Phenylephrine; Translations: [PHENYLEPHRINE- GUAIFENESIN] Drug Allergy 7 Rash [facility] Work Phone: (20 sources) meloxicam; Translations: [MELOXICAM] Drug Allergy 3 Other: See Comments, Palpitations [facility] Work Phone: (20 sources) Naproxen; Translations: [NAPROXEN] Drug Allergy 1 Swelling [facility] Work Phone: (20 sources) raNITIdine; Translations: [RANITIDINE HCL] Drug Allergy 7 Rash, Swelling [facility] Work Phone: (20 sources) traZODone; Translations: [TRAZODONE] Drug Allergy 5 Other: See Comments, Other (See Comments) [facility] Work Phone: (20 sources) surgical tape adhesives [Other] Propensity to adverse reactions 9 Rash [facility] Work Phone: (5 sources) Adhesive agent; Translations: [ADHESIVE] Propensity to adverse reactions to drug 7 Rash [facility] (5 sources) dilTIAZem; Translations: [DILTIAZEM] Drug Allergy 5 Swelling [facility] (5 sources) Adhesive Tape; Translations: [ADHESIVE TAPE (ROSINS)] Allergy to substance 3 Rash [facility] Work Phone: (1 source) OTHER; Translations: [OTHER] Propensity to adverse reactions (disorder) 9 [facility] Medications Current Medications Medication Drug Class(es) [...] Cerebrovascular accident; Translations: [Cerebral infarction, unspecified] Onset: 10-04-2022 08-19-2022 Chronic Administrative/social admission (1 source) Education [...] (3 sources) Fatigue; Translations: [Other fatigue] Episodic Mycoses (1 source) Candidiasis of mouth; Translations: [Candidal stomatitis] 06-30-2023 Episodic Nausea and vomiting (1 source) Nausea; Translations: [Nausea] Episodic Nutritional deficiencies (1 source) Vitamin D deficiency; Translations: [Vitamin D deficiency, unspecified] Chronic Nutritional deficiencies (1 source) Cobalamin deficiency; Translations: [Deficiency of other specified B group vitamins] Episodic Osteoarthritis (20 sources) Arthritis; Translations: [Unspecified osteoarthritis, unspecified site] Onset: 09-25-2015 05-07-2021 Chronic Other and unspecified benign neoplasm (3 sources) History of polyp of colon; Translations: [Personal history of colonic polyps] Episodic Other circulatory disease (1 source) History of cerebrovascular accident; Translations: [Personal history of transient ischemic attack (TIA), and cerebral infarction without residual deficits] 06-30-2023 Episodic Other diseases of bladder and urethra [...] Decrease in appetite; Translations: [Anorexia] Episodic Other screening for suspected conditions (not mental disorders or infectious disease) (5 sources) Patient encounter status; Translations: [Encounter for screening mammogram for malignant neoplasm of breast] Episodic Other upper respiratory infections (4 sources) Sore throat symptom; Translations: [Acute pharyngitis, unspecified] Episodic Peripheral and visceral atherosclerosis (5 sources) Peripheral vascular disease, unspecified; Translations: [Peripheral [...] or gangrene] Onset: 3 Episodic Abdominal pain (11 sources) Abdominal pain; Translations: [Unspecified abdominal pain] [...] Translations: [Encounter for immunization] Onset: 3 Episodic Other and unspecified benign [...] carcinoma of skin, unspecified] Onset: 2 Episodic Phlebitis; thrombophlebitis and thromboembolism (20 sources) [...] [Bilateral lower extremity edema] Onset: 3 Episodic Screening and history of [...] Vital Sign Value Performing Clinician Annamaria domínguez 06-30-2023 11:34-0500 Diastolic blood pressure 78 mm[Hg] Gwendolyn Older HEAD WRESTLING [employer] Work Phone: [facility] 06-30-2023 11:34-0500 Systolic blood pressure 128 mm[Hg] Gwendolyn Older HEAD WRESTLING [employer]STER Work Phone: [facility] 03-31-2023 11:39-0500 Body weight 61.24 kg Gwendolyn Older HEAD WRESTLING [employer]STER Work Phone: [facility] 03-31-2023 11:39-0500 Diastolic blood pressure 60 mm[Hg] Gwendolyn Older HEAD WRESTLING [employer] CASTER Work Phone: [facility] 03-31-2023 11:39-0500 Heart rate 54 /min Gwendolyn Older HEAD WRESTLING [employer] Work Phone: [facility] 03-31-2023 11:39-0500 Respiratory rate 16 /min Gwendolyn Older HEAD WRESTLING [employer] CASTER Work Phone: [facility] 03-31-2023 11:39-0500 SaO2% (BldA) [Mass fraction] 94 % Gwendolyn Older [employer] WRESTLING [employer] Work Phone: [facility] 03-31-2023 11:39-0500 Systolic blood pressure 118 mm[Hg] Gwendolyn Older HEAD WRESTLING [employer]STER Work Phone: [facility] 03-04-2023 11:59-0400 Body height 157.5 cm Davin [employer] PA-C Work Phone: [facility] 03-04-2023 11:59-0400 Body temperature 97.81 [degF] Davin [employer] PA-C Work Phone: [facility] 03-04-2023 11:59-0400 Body weight 63.96 kg Davin Denbow PA-C Work Phone: [facility] 03-04-2023 11:59-0400 Diastolic blood pressure 70 mm[Hg] Davin Denbow PA-C Work Phone: [facility] 03-04-2023 11:59-0400 Heart rate 61 /min Davin Denbow PA-C Work Phone: [facility] 03-04-2023 11:59-0400 Respiratory rate 12 /min Davin Denbow PA-C Work Phone: [facility] 03-04-2023 11:59-0400 SaO2% (BldA) [Mass fraction] 96 % Davin Denbow PA-C Work Phone: [facility] 03-04-2023 11:59-0400 Systolic blood pressure 138 mm[Hg] Davin Denbow PA-C Work Phone: [facility] 02-10-2023 13:26-0400 Body weight 62.6 kg Gwendolyn Older HEAD WRESTLING [employer] Work Phone: [facility] 02-10-2023 13:26-0400 Diastolic blood pressure 78 mm[Hg] Gwendolyn Older HEAD WRESTLING [employer]ACH.[employer]STER Work Phone: [facility] 02-10-2023 13:26-0400 Heart rate 63 /min Gwendolyn Older HEAD WRESTLING [employer] CASTER Work Phone: [facility] 02-10-2023 13:26-0400 Respiratory rate 16 /min Gwendolyn Older HEAD WRESTLING [employer] CASTER Work Phone: [facility] 02-10-2023 13:26-0400 SaO2% (BldA) [Mass fraction] 96 % Gwendolyn Older HEAD WRESTLING [employer] CASTER Work Phone: [facility] 02-10-2023 13:26-0400 Systolic blood pressure 146 mm[Hg] Gwendolyn Older HEAD WRESTLING [employer] CASTER Work Phone: [facility] 01-28-2023 19:18-0400 Body height 157.5 cm Phil Oden MD Work Phone: [facility] 01-28-2023 19:18-0400 Body weight 62.14 kg Phil Oden MD Work Phone: [facility] 01-28-2023 19:18-0400 Diastolic blood pressure 78 mm[Hg] Phil Oden MD Work Phone: [facility] 01-28-2023 19:18-0400 Heart rate 58 /min Phil Oden MD Work Phone: [facility] 01-28-2023 19:18-0400 Respiratory rate 16 /min Phil Oden MD Work Phone: [facility] 01-28-2023 19:18-0400 SaO2% (BldA) [Mass fraction] 94 % Phil Oden MD Work Phone: [facility] 01-28-2023 19:18-0400 Systolic blood pressure 130 mm[Hg] Phil Oden MD Work Phone: [facility] 01-27-2023 12:39-0400 Body height 152 cm Sylvia Gamboa MD Work Phone: [facility] 01-27-2023 12:39-0400 Body weight 61.69 kg Sylvia Gamboa MD Work Phone: [facility] 01-27-2023 12:39-0400 Diastolic blood pressure 78 mm[Hg] Sylvia Gamboa MD Work Phone: [facility] 01-27-2023 12:39-0400 Heart rate 58 /min Sylvia Gamboa MD Work Phone: [facility] 01-27-2023 12:39-0400 Respiratory rate 14 /min Sylvia Gamboa MD Work Phone: [facility] 01-27-2023 12:39-0400 SaO2% (BldA) [Mass fraction] 98 % Sylvia Gamboa MD Work Phone: [facility] 01-27-2023 12:39-0400 Systolic blood pressure 130 mm[Hg] Sylvia Gamboa MD Work Phone: [facility] 01-23-2023 14:06-0400 Diastolic blood pressure 62 mm[Hg] Gwendolyn Older HEAD WRESTLING [employer] Work Phone: [facility] 01-23-2023 14:06-0400 Systolic blood pressure 136 mm[Hg] Gwendolyn Older HEAD WRESTLING [employer] CASTER Work Phone: [facility] 01-23-2023 14:05-0400 Body temperature 97.2 [degF] Gwendolyn Older HEAD WRESTLING [employer]ACH.[employer] CASTER Work Phone: [facility] 01-23-2023 14:05-0400 Body weight 62.14 kg Gwendolyn Older HEAD WRESTLING [employer] CASTER Work Phone: [facility] 01-23-2023 14:05-0400 Heart rate 49 /min Gwendolyn Older HEAD WRESTLING [employer] CASTER Work Phone: [facility] 01-23-2023 14:05-0400 Respiratory rate 16 /min Gwendolyn Older HEAD WRESTLING [employer]ACH.[employer] CASTER Work Phone: [facility] 01-23-2023 14:05-0400 SaO2% (BldA) [Mass fraction] 92 % Gwendolyn Older HEAD WRESTLING [employer] CASTER Work Phone: [facility] 01-10-2023 14:45-0400 Body height 157.5 cm Gwendolyn Older HEAD WRESTLING [employer]ACH.[employer] CASTER Work Phone: [facility] 01-10-2023 14:45-0400 Body weight 63.05 kg Gwendolyn Older HEAD WRESTLING [employer]ACH.[employer] CASTER Work Phone: [facility] 01-10-2023 14:45-0400 Diastolic blood pressure 62 mm[Hg] Gwendolyn Older HEAD WRESTLING [employer]ACH.[employer] CASTER Work Phone: [facility] 01-10-2023 14:45-0400 Heart rate 102 /min Gwendolyn Older HEAD WRESTLING [employer] CASTER Work Phone: [facility] 01-10-2023 14:45-0400 Respiratory rate 14 /min Gwendolyn Older HEAD WRESTLING [employer] CASTER Work Phone: [facility] 01-10-2023 14:45-0400 SaO2% (BldA) [Mass fraction] 95 % Gwendolyn Older HEAD WRESTLING [employer] CASTER Work Phone: [facility] 01-10-2023 14:45-0400 Systolic blood pressure 130 mm[Hg] Gwendolyn Older HEAD WRESTLING [employer] CASTER Work Phone: [facility] 01-03-2023 14:31-0400 Body height 157.5 cm Gwendolyn Older HEAD WRESTLING [employer] CASTER Work Phone: [facility] 01-03-2023 14:31-0400 Body weight 62.14 kg Gwendolyn Older HEAD WRESTLING [employer] CASTER Work Phone: [facility] 01-03-2023 14:31-0400 Diastolic blood pressure 68 mm[Hg] Gwendolyn Older HEAD WRESTLING [employer] CASTER Work Phone: [facility] 01-03-2023 14:31-0400 Heart rate 69 /min Gwendolyn Older HEAD WRESTLING [employer] CASTER Work Phone: [facility] 01-03-2023 14:31-0400 Respiratory rate 18 /min Gwendolyn Older HEAD WRESTLING [employer] CASTER Work Phone: [facility] 01-03-2023 14:31-0400 SaO2% (BldA) [Mass fraction] 92 % Gwendolyn Older HEAD WRESTLING [employer] CASTER Work Phone: [facility] 01-03-2023 14:31-0400 Systolic blood pressure 130 mm[Hg] Gwendolyn Older HEAD WRESTLING [employer]ACH.[employer] CASTER Work Phone: [facility] 12-26-2022 12:40-0400 Body temperature 97.3 [degF] Gwendolyn Older HEAD WRESTLING [employer] CASTER Work Phone: [facility] 12-26-2022 12:40-0400 Body weight 62.6 kg Gwendolyn Older HEAD WRESTLING [employer]ACH.[employer] CASTER Work Phone: [facility] 12-26-2022 12:40-0400 Diastolic blood pressure 80 mm[Hg] Gwendolyn Older HEAD WRESTLING [employer]ACH.[employer] CASTER Work Phone: [facility] 12-26-2022 12:40-0400 Heart rate 56 /min Gwendolyn Older HEAD WRESTLING [employer] CASTER Work Phone: [facility] 12-26-2022 12:40-0400 Respiratory rate 16 /min Gwendolyn Older HEAD WRESTLING [employer]ACH.[employer] CASTER Work Phone: [facility] 12-26-2022 12:40-0400 SaO2% (BldA) [Mass fraction] 96 % Gwendolyn Older HEAD WRESTLING [employer] CASTER Work Phone: [facility] 12-26-2022 12:40-0400 Systolic blood pressure 142 mm[Hg] Gwendolyn Older HEAD WRESTLING [employer]ACH.[employer] CASTER Work Phone: [facility] 12-12-2022 11:40-0400 Body temperature 98.01 [degF] Gwendolyn Older HEAD WRESTLING [employer]ACH.[employer] CASTER Work Phone: [facility] 12-12-2022 11:40-0400 Body weight 64.41 kg Gwendolyn Older HEAD WRESTLING [employer]ACH.[employer] CASTER Work Phone: [facility] 12-12-2022 11:40-0400 Diastolic blood pressure 72 mm[Hg] Gwendolyn Older HEAD WRESTLING [employer] CASTER Work Phone: [facility] 12-12-2022 11:40-0400 Heart rate 56 /min Gwendolyn Older HEAD WRESTLING [employer] CASTER Work Phone: [facility] 12-12-2022 11:40-0400 Respiratory rate 16 /min Gwendolyn Older HEAD WRESTLING [employer]ACH.[employer] CASTER Work Phone: [facility] 12-12-2022 11:40-0400 SaO2% (BldA) [Mass fraction] 94 % Gwendolyn Older HEAD WRESTLING [employer] CASTER Work Phone: [facility] 12-12-2022 11:40-0400 Systolic blood pressure 136 mm[Hg] Gwendolyn Older HEAD WRESTLING [employer] CASTER Work Phone: [facility] 10-31-2022 09:04-0400 Body weight 61.69 kg Brandon Shaver MD Work Phone: [facility] 10-31-2022 09:04-0400 Diastolic blood pressure 70 mm[Hg] Brandon Shaver MD Work Phone: [facility] 10-31-2022 09:04-0400 Heart rate 54 /min Brandon Shaver MD Work Phone: [facility] 10-31-2022 09:04-0400 Respiratory rate 16 /min Brandon Shaver MD Work Phone: [facility] 10-31-2022 09:04-0400 SaO2% (BldA) [Mass fraction] 97 % Brandon Shaver MD Work Phone: [facility] 10-31-2022 09:04-0400 Systolic blood pressure 130 mm[Hg] Brandon Shaver MD Work Phone: [facility] 10-01-2022 10:43-0400 Diastolic blood pressure 66 mm[Hg] Zuleyma Meredith DO Work Phone: [facility] 10-01-2022 10:43-0400 Heart rate 54 /min Zuleyma Meredith DO Work Phone: [facility] 10-01-2022 10:43-0400 SaO2% (BldA) [Mass fraction] 97 % Zuleyma Meredith DO Work Phone: [facility] 10-01-2022 10:43-0400 Systolic blood pressure 140 mm[Hg] Zuleyma Meredith DO Work Phone: [facility] 09-13-2022 10:46-0400 Diastolic blood pressure 53 mm[Hg] Talia Haque MD Work Phone: [facility] 09-13-2022 10:46-0400 Heart rate 46 /min Talia Haque MD Work Phone: [facility] 09-13-2022 10:46-0400 Respiratory rate 16 /min Talia Haque MD Work Phone: [facility] 09-13-2022 10:46-0400 SaO2% (BldA) [Mass fraction] 96 % Talia Haque MD Work Phone: [facility] 09-13-2022 10:46-0400 Systolic blood pressure 180 mm[Hg] Talia Haque MD Work Phone: [facility] 09-03-2022 10:30-0400 Body height 157.5 cm Zuleyma Meredith DO Work Phone: [facility] 09-03-2022 10:30-0400 Body weight 60.33 kg Zuleyma Meredith DO Work Phone: [facility] 09-03-2022 10:30-0400 Diastolic blood pressure 62 mm[Hg] Zuleyma Meredith DO Work Phone: [facility] 09-03-2022 10:30-0400 Heart rate 62 /min Zuleyma Meredith DO Work Phone: [facility] 09-03-2022 10:30-0400 SaO2% (BldA) [Mass fraction] 96 % Zuleyma Meredith DO Work Phone: [facility] 09-03-2022 10:30-0400 Systolic blood pressure 118 mm[Hg] Zuleyma Meredith DO Work Phone: [facility] 08-29-2022 08:17-0400 Body temperature 97.59 [degF] Brandon Shaver MD Work Phone: [facility] 08-29-2022 08:17-0400 Body weight 60.78 kg Brandon Shaver MD Work Phone: [facility] 08-29-2022 08:17-0400 Diastolic blood pressure 60 mm[Hg] Brandon Shaver MD Work Phone: [facility] 08-29-2022 08:17-0400 Heart rate 60 /min Brandon Shaver MD Work Phone: [facility] 08-29-2022 08:17-0400 Respiratory rate 16 /min Brandon Shaver MD Work Phone: [facility] 08-29-2022 08:17-0400 SaO2% (BldA) [Mass fraction] 99 % Brandon Shaver MD Work Phone: [facility] 08-29-2022 08:17-0400 Systolic blood pressure 116 mm[Hg] Brandon Shaver MD Work Phone: [facility] 07-18-2022 10:34-0500 Body temperature 97.11 [degF] Katheryn Stokes MD Work Phone: [facility] 07-18-2022 10:34-0500 Diastolic blood pressure 78 mm[Hg] Katheryn Stokes MD Work Phone: [facility] 07-18-2022 10:34-0500 Heart rate 121 /min Katheryn Stokes MD Work Phone: [facility] 07-18-2022 10:34-0500 SaO2% (BldA) [Mass fraction] 95 % Katheryn Stokes MD Work Phone: [facility] 07-18-2022 10:34-0500 Systolic blood pressure 118 mm[Hg] Katheryn Stokes MD Work Phone: [facility] 06-18-2022 14:41-0500 Body height 157.5 cm Brandon Shaver MD Work Phone: [facility] 06-18-2022 14:41-0500 Body temperature 97.5 [degF] Brandon Shaver MD Work Phone: [facility] 06-18-2022 14:41-0500 Body weight 61.69 kg Brandon Shaver MD Work Phone: [facility] 06-18-2022 14:41-0500 Diastolic blood pressure 60 mm[Hg] Brandon Shaver MD Work Phone: [facility] 06-18-2022 14:41-0500 Heart rate 53 /min Brandon Shaver MD Work Phone: [facility] 06-18-2022 14:41-0500 Respiratory rate 12 /min Brandon Shaver MD Work Phone: [facility] 06-18-2022 14:41-0500 SaO2% (BldA) [Mass fraction] 95 % Brandon Shaver MD Work Phone: [facility] 06-18-2022 14:41-0500 Systolic blood pressure 132 mm[Hg] Brandon Shaver MD Work Phone: [facility] 06-08-2022 10:17-0500 Body temperature 97.81 [degF] Brandon Shaver MD Work Phone: [facility] 06-08-2022 10:17-0500 Body weight 61.24 kg Brandon Shaver MD Work Phone: [facility] 06-08-2022 10:17-0500 Diastolic blood pressure 68 mm[Hg] Brandon Shaver MD Work Phone: [facility] 06-08-2022 10:17-0500 Heart rate 56 /min Brandon Shaver MD Work Phone: [facility] 06-08-2022 10:17-0500 SaO2% (BldA) [Mass fraction] 96 % Brandon Shaver MD Work Phone: [facility] 06-08-2022 10:17-0500 Systolic blood pressure 158 mm[Hg] Brandon Shaver MD Work Phone: [facility] 05-23-2022 14:10-0500 Body height 157.5 cm Katheryn Stokes MD Work Phone: [facility] 05-23-2022 14:10-0500 Body temperature 97.9 [degF] Katheryn Stokes MD Work Phone: [facility] 05-23-2022 14:10-0500 Body weight 61.51 kg Katheryn Stokes MD Work Phone: [facility] 05-23-2022 14:10-0500 Diastolic blood pressure 72 mm[Hg] Katheryn Stokes MD Work Phone: [facility] 05-23-2022 14:10-0500 Heart rate 62 /min Katheryn Stokes MD Work Phone: [facility] 05-23-2022 14:10-0500 SaO2% (BldA) [Mass fraction] 95 % Katheryn Stokes MD Work Phone: [facility] 05-23-2022 14:10-0500 Systolic blood pressure 124 mm[Hg] Katheryn Stokes MD Work Phone: [facility] 05-22-2022 13:55-0500 Diastolic blood pressure 70 mm[Hg] Gwendolyn Older HEAD WRESTLING [employer] Work Phone: [facility] 05-22-2022 13:55-0500 Systolic blood pressure 129 mm[Hg] Gwendolyn Older HEAD WRESTLING [employer] CASTER Work Phone: [facility] 05-22-2022 13:01-0500 Body temperature 97.81 [degF] Gwendolyn Older HEAD WRESTLING [employer]ACH.[employer] CASTER Work Phone: [facility] 05-22-2022 13:01-0500 Body weight 60.78 kg Gwendolyn Older HEAD WRESTLING [employer]ACH.[employer] CASTER Work Phone: [facility] 05-22-2022 13:01-0500 Heart rate 56 /min Gwendolyn Older HEAD WRESTLING [employer]ACH.TYPE CASTER Work Phone: [facility] 05-22-2022 13:01-0500 Respiratory rate 16 /min Gwendolyn Older HEAD WRESTLING [employer]ACH.TYPE CASTER Work Phone: [facility] 05-22-2022 13:01-0500 SaO2% (BldA) [Mass fraction] 99 % Gwendolyn Older HEAD WRESTLING [employer] CASTER Work Phone: [facility] 05-15-2022 11:38-0500 Body temperature 97.59 [degF] Gwendolyn Older HEAD WRESTLING [employer]ACH.[employer] CASTER Work Phone: [facility] 05-15-2022 11:38-0500 Body weight 61.24 kg Gwendolyn Older HEAD WRESTLING [employer]ACH.TYPE CASTER Work Phone: [facility] 05-15-2022 11:38-0500 Diastolic blood pressure 70 mm[Hg] Gwendolyn Older HEAD WRESTLING COACH.TYPE CASTER Work Phone: [facility] 05-15-2022 11:38-0500 Heart rate 53 /min Gwendolyn Older HEAD WRESTLING COACH.TYPE CASTER Work Phone: [facility] 05-15-2022 11:38-0500 Respiratory rate 16 /min Gwendolyn Older HEAD WRESTLING COACH.TYPE CASTER Work Phone: [facility] 05-15-2022 11:38-0500 SaO2% (BldA) [Mass fraction] 95 % Gwendolyn Older HEAD WRESTLING COACH.TYPE CASTER Work Phone: [facility] 05-15-2022 11:38-0500 Systolic blood pressure 152 mm[Hg] Gwendolyn Older HEAD WRESTLING COACH.TYPE CASTER Work Phone: [facility] 04-29-2022 14:04-0500 Body temperature 99.81 [degF] Hodan Rodney HEAD WRESTLING COACH.TYPE CASTER Work Phone: [facility] 04-29-2022 14:04-0500 Body weight 59.88 kg Hodan Rodney HEAD WRESTLING COACH.TYPE CASTER Work Phone: [facility] 04-29-2022 14:04-0500 Diastolic blood pressure 64 mm[Hg] Hodan Rodney HEAD WRESTLING COACH.TYPE CASTER Work Phone: [facility] 04-29-2022 14:04-0500 Heart rate 77 /min Hodan Rodney HEAD WRESTLING COACH.TYPE CASTER Work Phone: [facility] 04-29-2022 14:04-0500 Respiratory rate 28 /min Hodan Rodney HEAD WRESTLING COACH.TYPE CASTER Work Phone: [facility] 04-29-2022 14:04-0500 SaO2% (BldA) [Mass fraction] 97 % Hodan Rodney HEAD WRESTLING COACH.TYPE CASTER Work Phone: [facility] 04-29-2022 14:04-0500 Systolic blood pressure 120 mm[Hg] Hodan Rodney HEAD WRESTLING COACH.TYPE CASTER Work Phone: [facility] 03-18-2022 13:56-0500 Body temperature 97.59 [degF] Gwendolyn Older HEAD WRESTLING COACH.TYPE CASTER Work Phone: [facility] 03-18-2022 13:56-0500 Body weight 60.78 kg Gwendolyn Older HEAD WRESTLING COACH.TYPE CASTER Work Phone: [facility] 03-18-2022 13:56-0500 Diastolic blood pressure 66 mm[Hg] Gwendolyn Older HEAD WRESTLING COACH.TYPE CASTER Work Phone: [facility] 03-18-2022 13:56-0500 Heart rate 66 /min Gwendolyn Older HEAD WRESTLING COACH.TYPE CASTER Work Phone: [facility] 03-18-2022 13:56-0500 Respiratory rate 16 /min Gwendolyn Older HEAD WRESTLING COACH.TYPE CASTER Work Phone: [facility] 03-18-2022 13:56-0500 SaO2% (BldA) [Mass fraction] 96 % Gwendolyn Older HEAD WRESTLING COACH.TYPE CASTER Work Phone: [facility] 03-18-2022 13:56-0500 Systolic blood pressure 132 mm[Hg] Gwendolyn Older HEAD WRESTLING COACH.TYPE CASTER Work Phone: [facility] 02-22-2022 14:30-0400 Body temperature 97.3 [degF] Brandon Shaver MD Work Phone: [facility] 02-22-2022 14:30-0400 Body weight 59.42 kg Brandon Shaver MD Work Phone: [facility] 02-22-2022 14:30-0400 Diastolic blood pressure 78 mm[Hg] Brandon Shaver MD Work Phone: [facility] 02-22-2022 14:30-0400 Heart rate 60 /min Brandon Shaver MD Work Phone: [facility] 02-22-2022 14:30-0400 Respiratory rate 16 /min Brandon Shaver MD Work Phone: [facility] 02-22-2022 14:30-0400 SaO2% (BldA) [Mass fraction] 96 % Brandon Shaver MD Work Phone: [facility] 02-22-2022 14:30-0400 Systolic blood pressure 124 mm[Hg] Brandon Shaver MD Work Phone: [facility] 01-21-2022 12:03-0400 Body weight 58.97 kg Brandon Shaver MD Work Phone: [facility] 01-21-2022 12:03-0400 Diastolic blood pressure 68 mm[Hg] Brandon Shaver MD Work Phone: [facility] 01-21-2022 12:03-0400 Heart rate 56 /min Brandon Shaver MD Work Phone: [facility] 01-21-2022 12:03-0400 Respiratory rate 16 /min Brandon Shaver MD Work Phone: [facility] 01-21-2022 12:03-0400 Systolic blood pressure 138 mm[Hg] Brandon Shaver MD Work Phone: [facility] 12-24-2021 08:03-0400 Body height 154.9 cm Pacc 1 Work Phone: [facility] 12-24-2021 08:03-0400 Body temperature 97.11 [degF] Pacc 1 Work Phone: [facility] 12-24-2021 08:03-0400 Body weight 60.78 kg Pacc 1 Work Phone: [facility] 12-24-2021 08:03-0400 Diastolic blood pressure 64 mm[Hg] Pacc 1 Work Phone: [facility] 12-24-2021 08:03-0400 Heart rate 58 /min Pacc 1 Work Phone: [facility] 12-24-2021 08:03-0400 Respiratory rate 16 /min Pacc 1 Work Phone: [facility] 12-24-2021 08:03-0400 SaO2% (BldA) [Mass fraction] 97 % Pacc 1 Work Phone: [facility] 12-24-2021 08:03-0400 Systolic blood pressure 126 mm[Hg] Pacc 1 Work Phone: [facility] 09-21-2021 11:39-0400 Body weight 59.42 kg Lindsay Zee MD Work Phone: [facility] 09-21-2021 11:39-0400 Diastolic blood pressure 68 mm[Hg] Lindsay Zee MD Work Phone: [facility] 09-21-2021 11:39-0400 Systolic blood pressure 136 mm[Hg] Lindsay Zee MD Work Phone: [facility] Encounters Encounter Date Encounter Type Care Provider Facility Start: 06-30-2023 End: 06-30-2023 ambulatory BRANDON SHAVER Facility:[facility] Start: 06-30-2023 End: 06-30-2023 Patient encounter procedure Gwendolyn Ballard HEAD WRESTLING COACH.TYPE CASTER Work Phone: [facility] Procedures Date Procedure Procedure Detail Performing Clinician Start: 02-10-2023 INFLUENZA VACCINE, P RSV FREE, AGE 65+ YR, HIGH DOSE, QUADRIVALENT (FLUZONE HIGH-DOSE) Gwendolyn Ballard HEAD WRESTLING COACH.TYPE CASTER Work Phone: Start: 01-27-2023 Co diffusing [facility] E gudelia Gamboa MD Work Phone: Start: 01-10-2023 Follow-up visit Follow Up [facility] Start: 12-26-2022 Ct abdomen & pelvis w/contrast material Gwendolyn Ballard APRN.TYPE CASTER Work Phone: Start: 12-12-2022 Sars-cov-2 detection by dna/rna Gwendolyn Ballard APRN.TYPE CASTER Work Phone: Start: 12-12-2022 STREP A MOLECULAR (POC) Gwendolyn Ballard HEAD WRESTLING COACH.TYPE CASTER Work Phone: Start: 06-11-2022 Colonoscopy Brandon melgoza MD Work Phone: Start: 05-28-2022 Ct abdomen & pelvis w/o contrast material Katheryn Stokes MD Work Phone: Start: 05-15-2022 Urnls dip stick/tabl et rgnt auto w/o microscopy Gwendolyn Ballard HEAD WRESTLING COACH.TYPE CASTER Work Phone: Start: 02-22-2022 STREP A MOLECULAR (POC) Brandon Shaver MD Work Phone: Start: 01-21-2022 Urnls dip stick/tabl et rgnt auto w/o microscopy Brandon Shaver MD Work Phone: Start: 01-21-2022 INFLUENZA SEASONAL QUADRIVALENT HIGH DOSE AGE 65+ Brandon Shaver MD Work Phone: Start: 09-21-2021 Urnls dip stick/tabl et rgnt auto w/o microscopy Lindsay Zee MD Work Phone: Start: 04-30-2021 Adult depression scr eening assessment Gwendolyn Older HEAD WRESTLING COACH.TYPE CASTER Work Phone: Start: 01-19-2020 Lipid 1996 panel - S rodolfo or Plasma Gwendolyn Older HEAD WRESTLING COACH.TYPE CASTER Work Phone: Start: 01-14-2019 Mammography Gwendolyn Older HEAD WRESTLING COACH.TYPE CASTER Work Phone: Start: 11-22-2015 Colonoscopy Gwendolyn Older HEAD WRESTLING COACH.TYPE CASTER Work Phone: Plan of Treatment Date Care Activity Detail Author Start: 06-11-2032 Screening for malign ant neoplasm of colon [facility] Start: 07-08-2028 Tetanus vaccination Tetanus: Every 1 0yrs [facility] Start: 12-26-2025 DIABETES SCREEN DIABETES SCREEN [facility] Start: 12-26-2025 Diabetes Screening Diabetes Screenin g [facility] Start: 12-12-2025 DIABETES SCREEN DIABETES SCREEN [facility] Start: 05-15-2025 DIABETES SCREEN DIABETES SCREEN [facility] Start: 04-29-2025 DIABETES SCREEN DIABETES SCREEN [facility] Start: 03-15-2025 DIABETES SCREEN DIABETES SCREEN [facility] Start: 01-18-2025 Lipid 1996 panel - S rodolfo or Plasma Lipid Screening [facility] Start: 01-18-2025 Lipid panel Lipid Screening [facility] Start: 01-18-2025 LIPID SCREEN LIPID SCREEN [facility] Start: 12-24-2024 DIABETES SCREEN DIABETES SCREEN [facility] Start: 09-06-2024 DIABETES SCREEN DIABETES SCREEN [facility] Start: 06-30-2024 Annual PCP Team Freight Car Cleaner binu Disease Visit Annual PCP Team Chronic Disease Visit [facility] Start: 06-30-2024 BP Controlled (<130/80) BP Controlle d (<130/80) [facility] Start: 06-11-2024 Colonoscopy COLONOSCOPY [facility] Start: 06-11-2024 COLORECTAL CANCER SCREENING COLORECTAL CANCER SCREENING [facility] Start: 06-11-2024 Screening for malign ant neoplasm of colon [facility] Start: 03-31-2024 Annual PCP Team Fre[employer] Car Cleaner binu Disease Visit Annual PCP Team Chronic Disease Visit [facility] Start: 03-31-2024 BP Controlled (<130/80) BP Controlle d (<130/80) [facility] Start: 03-31-2024 RSV Vaccine (1 - 1-d ose 60+ series) RSV Vaccine (1 - 1-dose 60+ series) [facility] Immunizations Immunization Date Immunization Notes Care Provider Fa lb 02-10-2023 influenza (HD-IIV4) vaccine, age 65+ yr, high dose, quadrivalent, PF (FLUZONE HIGH-DOSE) Gwendolyn Older HEAD WRESTLING COACH.TYPE CASTER Work Phone: [facility] 01-21-2022 influenza, high-dose , quadrivalent vaccine (FLUZONE HIGH DOSE QUADRIVALENT) Brandon Shaver MD Work Phone: [facility] Work Phone: 01-21-2022 influenza virus vacc ine, unspecified formulation Gwendolyn Older HEAD WRESTLING COACH.TYPE CASTER Work Phone: [facility] 09-19-2021 zoster vaccine recombinant Lindsay Zee MD Work Phone: [facility] 02-03-2021 influenza, high-dose , quadrivalent vaccine (FLUZONE HIGH DOSE QUADRIVALENT) Gwendolyn Older HEAD WRESTLING COACH.TYPE CASTER Work Phone: [facility] 06-13-2020 COVID-19 vaccine, fu ll dose (MODERNA) Gwendolyn Older HEAD WRESTLING COACH.TYPE CASTER Work Phone: [facility] Work Phone: 05-16-2020 COVID-19 vaccine, fu ll dose (MODERNA) Gwendolyn Older HEAD WRESTLING COACH.TYPE CASTER Work Phone: [facility] Work Phone: 03-04-2020 influenza, high-dose , quadrivalent vaccine (FLUZONE HIGH DOSE QUADRIVALENT) Gwendolyn Older HEAD WRESTLING COACH.[facility] Work Phone: [facility] Work Phone: 02-12-2019 influenza, high dose seasonal, preservative-free Gwendolyn Older HEAD WRESTLING COACH.[facility] Work Phone: [facility] 07-08-2018 tetanus and diphther ia toxoids, adsorbed, preservative free, for adult use (5 Lf of tetanus toxoid and 2 Lf of diphtheria toxoid) Gwendolyn Older HEAD WRESTLING COACH.[facility] Work Phone: [facility] Work Phone: 01-23-2018 influenza, high dose seasonal, preservative-free Gwendolyn Older HEAD WRESTLING COACH.[facility] Work Phone: [facility] Work Phone: 02-03-2016 influenza, high dose seasonal, preservative-free Gwendolyn Older HEAD WRESTLING COACH.TYPE CASTER Work Phone: [facility] 04-28-2015 pneumococcal conjuga te vaccine, 13 valent Gwendolyn Older HEAD WRESTLING COACH.[facility] Work Phone: [facility] 02-18-2015 influenza, high dose seasonal, preservative-free Gwendolyn Older HEAD WRESTLING COACH.TYPE CASTER Work Phone: [facility] Work Phone: 02-23-2014 influenza, seasonal, injectable Gwendolyn Older HEAD WRESTLING COACH.TYPE CASTER Work Phone: [facility] 12-30-2013 pneumococcal polysaccharide vaccine, 23 valent Gwendolyn Older HEAD WRESTLING COACH.TYPE CASTER Work Phone: [facility] 03-06-2013 influenza virus vacc ine, unspecified formulation Gwendolyn Older HEAD WRESTLING COACH.TYPE CASTER Work Phone: [facility] Work Phone: 02-29-2012 influenza virus vacc ine, unspecified formulation Gwendolyn Older HEAD WRESTLING COACH.TYPE CASTER Work Phone: [facility] Work Phone: 03-12-2011 influenza virus vacc ine, unspecified formulation Gwendolyn Older HEAD WRESTLING COACH.TYPE CASTER Work Phone: [facility] 12-25-2010 zoster vaccine, live Gwendolyn Old er HEAD WRESTLING COACH.TYPE CASTER Work Phone: [facility] 08-20-2010 hepatitis B vaccine, adult dosage Gwendolyn Older HEAD WRESTLING COACH.TYPE CASTER Work Phone: [facility] 03-01-2010 influenza virus vacc ine, unspecified formulation Gwendolyn Older HEAD WRESTLING COACH.TYPE CASTER Work Phone: [facility] Work Phone: 02-19-2010 hepatitis B vaccine, adult dosage Gwendolyn Older HEAD WRESTLING COACH.TYPE CASTER Work Phone: [facility] Work Phone: 01-02-2010 hepatitis B immune globulin Gwendolyn Older HEAD WRESTLING COACH.TYPE CASTER Work Phone: [facility] 02-15-2009 influenza virus vacc ine, unspecified formulation Gwendolyn Older HEAD WRESTLING COACH.[facility] Work Phone: [facility] Work Phone: 03-16-2008 influenza virus vacc ine, unspecified formulation Gwendolyn Older HEAD WRESTLING COACH.TYPE CASTER Work Phone: [facility] 03-26-2007 influenza virus vacc ine, unspecified formulation Gwendolyn Older HEAD WRESTLING COACH.TYPE CASTER Work Phone: [facility] Work Phone: 03-26-2007 pneumococcal polysaccharide vaccine, 23 valent Gwendolyn Older HEAD WRESTLING COACH.[facility] Work Phone: [facility] Work Phone: 07-16-2006 tetanus and diphther ia toxoids, adsorbed, preservative free, for adult use (2 Lf of tetanus toxoid and 2 Lf of diphtheria toxoid) Gwendolyn Older HEAD WRESTLING COACH.[facility] Work Phone: [facility] Payers Date Payer Category Payer Medicare [id number] 2022 Medicare [id number] 2022 Private Health Insurance [id number] 2022 Private Health Insurance [id number] 2020 Unknown MMO MMO TPA [id number] 2020-Present [address] [place] [address] PPO [id number] 2020 Unknown ANTHEM BLUE CROS S AND BLUE SHIELD ANTHEM MEDIBLUE HMO [id number] 2020-Present [phone] [address] [place] [address] HMO [id number] 2020 Unknown [id number] 1945 Unknown [id number] 1945 Unknown [id number] Social History Date Type Detail Facility Start: 04-28-2015 End: 12-24-2021 Tobacco smoking status NHIS Ex-smoker [facility] Work Phone: End: 11-09-2005 History of tobacco use Current smoker [facility] Work Phone: End: 11-09-2005 History of tobacco use Cigarette Smoker [facility] Work Phone: Start: 07-10-2021 End: 10-10-2021 Alcohol intake Current drinker of alcohol (finding) [facility] Start: 06-27-2021 End: 02-22-2022 History SDOH Alcohol Frequency 1 [facility] Start: 07-05-2013 History SDOH Alcohol Comment mixed drink in p.m. [facility] Start: 06-27-2021 End: 12-05-2022 History SDOH Social Connections Phone 5 [facility] Start: 06-27-2021 End: 04-15-2022 History SDOH Social Connections Get Together 4 [facility] Start: 06-27-2021 End: 04-15-2022 History SDOH Social Connections Membership 2 [facility] Start: 06-27-2021 End: 04-15-2022 History SDOH Physical Activity MPS 15 [facility] Start: 1945 Sex Assigned At Female C [facility] Start: 08-28-2021 End: 09-13-2022 Exposure to SARS-CoV-2 (event) Not sure [facility] Start: 12-24-2021 End: 09-26-2022 Cigarettes smoked current (pack per day) - Reported 2 [facility] Start: 12-24-2021 End: 09-13-2022 Tobacco use and exposure Smokeless tobacco non-user [facility] Start: 12-24-2021 End: 05-30-2023 Alcohol intake Ex-drinker (finding) [facility] Start: 12-24-2021 Tobacco Comment Stopped smoking 12/29 06 [facility] Start: 04-15-2022 History MDOH Alcohol Std Drinks 0 [facility] Start: 1945 Sex Assigned At Not on file [facility] Start: 04-15-2022 End: 09-26-2022 Gender identity Not on file [facility] Start: 09-13-2022 Tobacco smoking stat [facility] Never smoked tobacco [facility] Start: 09-13-2022 Alcohol intake Lifetime non-d tristan (finding) [facility] Do you belong to any clubs or organizations such as adventist groups, unions, fraternal or athletic groups, or school groups? No [facility] Are you now , , , , never or living with a partner? [facility] Frequency of Alcohol Consumption Not on file [facility] How often do you hav e 6 or more drinks on 1 occasion? Never [facility] Do you feel stress - tense, restless, nervous, or anxious, or unable to sleep at night because your mind is troubled all the time - these days [OSQ] Only a little [facility] (I/We) worried [facility] (my/our) food would run out before (I/we) got money to buy more. Never true [facility] Start: 03-02-2020 Gender identity Identifies as female gender (finding) [facility] Start: 03-02-2020 Sexual orientation Heterosexual (parris germain) [facility] NEGATED: Highlighted rowStart: CECYF History of tobacco use Passive smoker [facility] Clinical Notes 11-22-2015 to 06-30-2023 Gwendolyn Ballard APRN.TYPE CASTER - 06/30/2023 11:44 AM ESTTelephone Encounter - Felicitas Glover Tito - 04/11/2023 8:24 AM ESTTelephone Encounter - ArpanDwayne Esparzadi - 04/10/2023 2:52 PM ESTPatient Instructions Note Date & Type [facility] 06-30-2023 History of Present illness Narrative CC: Patient presents with: Recheck: 3 month follow up HPI Elizabeth Delgado is a 78 year old female who presents today for routine follow up. HTN/Afib/CHF/ CVA last year: Ms. Delgado indicates that she is feeling well and denies any symptoms referable to elevated blood pressure. Specifically denies headache, chest pain, palpitations, dyspnea, and peripheral edema. Patient denies any side effects of her medication(s) and is compliant with their regimen. She does check BP's away from this office with average BP's in the 90s/60s range so stopped valsartan. Elizabeth denies regular aerobic exercise. She watches her diet for sodium, low fat and low cholesterol most of the time. Scheduled for cardioversion with [facility] on Friday. Last 3 Encounter BP Readings: Date: BP: 06/30/2023 128/78 05/30/2023 118/84 05/23/2023 98/64 Has been only working 5 hours a day due to recovery after multiple hospitalization last year for CHF, CVA, A-fib, C-diff, and pneumonia. Has decreased taste and irritation to tongue. Residual numbness to tongue from CVA but now is worse and nothing tastes as it should. REVIEW OF SYSTEMS General: no fevers, no chills, no night sweats, no recurrent infections, no change in appetite, no change in energy, and no significant changes in weight Respiratory: no cough, no wheezing, no shortness of breath, no hemoptysis Cardiovascular: no chest pain, no chest pressure, no palpitations, and no swelling Neurologic: No headache, weakness, syncope. PAST MEDICAL HISTORY Diagnosis Date Anxiety Arthritis Atrial fibrillation (HCC) s/p ablation 07/2015 Backache, unspecified Moses's esophagus Basal cell carcinoma Cancer (HCC) Basal cell on forehead Carpal tunnel syndrome, bilateral Congestive heart failure (HCC) COPD (chronic obstructive pulmonary disease) (HCC) DVT (deep venous thrombosis) (HCC) remote Esophageal reflux History of cardioversion 10/31/2018 HTN (hypertension) Irritable bowel syndrome Left carotid bruit 09/14/2018 noted by cardiology Left ventricular systolic dysfunction 11/08/2016 Other specified abdominal hernia without obstruction or gangrene PONV (postoperative nausea and vomiting) S/P cervical [...] surgery with implants- Dr Jacob Aguilar at [facility] PAST SURGICAL HISTORY OF 07/27/2015 cryo ablation, cardiac RPR UMBILICAL HRNA 5 YRS/> REDUCIBLE 07/17/2010 Hernia repair, umbilical >5yr [facility] Dr Manuel Hoover SHX COSMETIC SURGERY SKIN BIOPSY HX ALLERGIES Cardizem [Diltiazem Hcl], Codeine, Entex [Phenylephrine-Guaifenesin], Etodolac, Meloxicam, Naproxen, Tape [Adhesive Tape (Rosins)], Trazodone, and Zantac [Ranitidine Hcl] MEDICATIONS flecainide (TAMBOCOR) 100 mg tablet Take 1 tablet by mouth two times a day. valsartan (DIOVAN) 40 mg tablet Take 1 tablet by mouth once daily. fluticasone (FLONASE) 50 mcg/actuation nasal spray Use 2 Sprays in each nostril once daily. Rinse mouth after use. sucralfate (CARAFATE) 100 mg/mL suspension Take 10 mL by mouth before meals and at bedtime. (560cc=2wks) diclofenac, EC, (VOLTAREN) 75 mg EC tablet Takes once daily PRN for acute pain/inflammation. Take with food. JARDIANCE 10 mg tablet Take 10 mg by mouth once daily. metoprolol succinate ER (TOPROL XL) 25 mg 24 hr tablet Take 0.5 tablets by mouth twice daily. (Patient taking differently: Take 50 mg by mouth two times a day.) zbwevxynzbp-exzyqmggi-cihotdtl (TRELEGY ELLIPTA) 100-62.5-25 mcg inhalation powder Inhale [...] mid back (Patient not taking: Reported on 05/30/2023) furosemide (LASIX) 40 mg tablet Take 1 [...] 1,000 mg by mouth five times daily. [id number] ORAL Take by mouth. FAMILY HISTORY Problem [...] Currently Drug use: No PHYSICAL EXAM BP 128/78 Pulse (!) (P) 57 Resp (P) 16 Wt (P) 59.9 kg (132 lb) SpO2 (P) 97% BMI (P) 24.94 kg/m General Appearance: well appearing, in no acute distress, alert Pysch: mood and affect broad and appropriate Skin: Skin color, texture, turgor normal for age; Oropharynx: small amount of white noticed to back of tongue with irritation and white coloring below lower dentures. Eyes: conjunctiva pink and moist, no icterus, sclera white, non-injected Lungs: Lungs clear to auscultation. No wheezing, rhonchi, rales. Heart: RRR without murmur, gallop, or rubs. No ectopy Health maintenance reviewed with patient: BP Controlled (<130/80) Never done Advance Directive Discussion due on 05/12/2023 Depression Assessment due on 05/12/2023 DTaP,Tdap,Td Vaccine(1 - Tdap) due on 02/11/2024 Shingrix Vaccine(3 of 3) due on 02/11/2024 Covid-19 Vaccine(4 - 2022- season) due on 02/11/2024 RSV Vaccine(1 - 1-dose 60+ series) due on 03/31/2024 Annual PCP Team Chronic Disease Visit due on 03/31/2024 Diabetes Screening due on 12/26/2025 Bone Density Screening Completed Spirometry Completed Influenza Vaccine Completed Hepatitis C Screening Completed Pneumococcal Vaccine: 65+ Completed HPV Vaccine Aged Out Mammogram Screening Discontinued Colorectal Cancer Screening Discontinued DATA REVIEWED: No new labs ASSESSMENT/PLAN: 1. Chronic congestive heart failure, unspecified heart failure type (HCC) - ICD9: 428.0, ICD10: I50.9 (primary diagnosis) stable - Continue current medications and recommendations by cardiology - Encouraged sodium restriction - Encouraged daily weights - Recommend regular aerobic exercise - COMP METABOLIC PANEL - LIPID PANEL BASIC - CBC 2. Paroxysmal atrial fibrillation (HCC) - ICD9: 427.31, ICD10: I48.0 - on metoprolol for rate control and eliquis for DVT prevention - stable - continue with plans for cardioversion and any other recommendations by cardiology. - COMP METABOLIC PANEL - CBC 3. Primary hypertension - ICD9: 401.9, ICD10: I10 - Controlled - Continue current medications - Recommend home blood pressure monitoring, to bring results to next visit - Encouraged sodium restriction, DASH or Mediterranean diet - Recommend regular aerobic exercise 4. History of CVA (cerebrovascular accident) - ICD9: V12.54, ICD10: Z86.73 - stable with slight tongue numbness as residual - continue with recommendations by neurology 5. Thrush - ICD9: 112.0, ICD10: B37.0 Nystatin as ordered limit use of dentures and keep clean Rinse after use of inhalers. Prescription instructions reviewed with patient as applicable. Potential red flag symptoms discussed with the patient. Reviewed appropriate action plan to take if red flag symptoms occur. Patient agreeable to treatment plan. Gwendolyn Ballard APRN.CNP documented in this encounter [facility] 05-30-2023 Note [facility] 05-23-2023 Note [facility] 04-11-2023 Miscellaneous Notes Patient has been [...] patient. Lorraine Randle documented in this encounter [facility] 03-31-2023 Note [facility] 03-31-2023 History of Present illness Narrative [...] surgery with implants- Dr Jacob Aguilar at [facility] PAST SURGICAL HISTORY OF 07/27/2015 cryo ablation, cardiac RPR UMBILICAL HRNA 5 YRS/> REDUCIBLE 07/17/2010 Hernia repair, umbilical >5yr [facility] Dr Manuel Hoover SHX COSMETIC SURGERY SKIN [...] Take 0.5 tablets by mouth twice daily. xrrnbaozznb-uklmpqthi-ayttdvry (TRELEGY ELLIPTA) 100-62.5-25 mcg inhalation powder Inhale [...] 1,000 mg by mouth five times daily. JLPMFSR-NCGIOFLFL-KUCQ ORAL Take by mouth. lidocaine (LIDODERM) 5 [...] Vaccine(3 of 3) due on 02/11/2024 Covid-19 Vaccine(4 - season) due on 02/11/2024 Annual PCP [...] Gwendolyn Ballard APRN.ANITHA documented in this encounter [facility] 03-24-2023 Miscellaneous Notes Patient has been identified [...] Toshia Jaquez LPN. documented in this encounter [facility] 03-24-2023 Note [facility] 03-24-2023 History of Present illness Narrative [employer] 02/26/2023: Recording time 5 hours 54 min Saturation < 88% 94 min Lowest saturation 68% Confirms need for nocturnal oxygen documented in this encounter [facility] 03-17-2023 Note [facility] 03-17-2023 Instructions Lupe Ballard APRN.TYPE CASTER - 03/17/2023 2:30 PM EST Fact Sheet [...] of LAGEVRIO during to this registry at https://covid-pr.Rock My World.Hopela or . For individuals who are sexually [...] virus. COVID-19 illnesses have ranged from very sutg-uj-ewyozb, including illness resulting in . While information [...] serious illnesses Take any medicines including prescription, wdkv-bty-dhcbqgn medicines, vitamins, and herbal products. How do [...] treat people with COVID-19. Go to https://www.fda.gov/emergency-pre rwrqhigkd-cfr-kypqflah/mcm-legalr pqqkjrjqp-dob-qvysfa-framework/em ovtaivq-cdr-nnbeakwqwupek for more information. It is your choice [...] to FDA MedWatch at www.fda.gov/medwatch or call 2-166-CSP-8895 (1834.970.1586). How should I store LAGEVRIO? Store LAGEVRIO capsules at room temperature between 68 F to 77 F (20 C to 25 C). Keep LAGEVRIO and all medicines out of the reach of children. How can I learn more about COVID-19? Ask your healthcare provider. Visit www.cdc.gov/COVID19 Contact your local or state public health department. Call [employer] at (toll free in the [place] Visit www.iConnectivityiravir.Hopela What Is an Emergency Use Authorization (EUA)? The [place] FDA has made LAGEVRIO available under an emergency access mechanism called an Emergency Use Authorization (EUA) The EUA is supported by a Inside Sales Advisor of Health and Human Service ([facility]) declaration that circumstances exist to justify emergency use of drugs and biological products during the COVID-19 pandemic. LAGEVRIO for the treatment of adults with a current diagnosis of mlbp-uk-whcnjlzz COVID-19 who are at high risk for [...] be used under the EUA). [place]. for: [employer] For patent information: www.Extra Life.Hopela/research/patent Copyright [employer]ck & [employer] Inc[employer] [place], [place], [place] and its affiliates. All rights reserved. [id number] Revised: June 2022 documented in this encounter [facility] 03-17-2023 History of Present illness Narrative This Team Access Model visit is a phone encounter. It required patient-provider interaction for the medical decision making as documented below. I have communicated my name and active licensure. The patient's identity and physical location were verified at the time of this visit. Either the patient or their legal manufacturing sales representative has been informed of the risks and benefits of -- and alternatives to -- treatment through a remote evaluation and consents to proceed with the evaluation remotely. Patient Location: [place] CC: Patient presents with: Covid19 Concern HPI: Elizabeth Delgado is a 77 year old female who is contacted today for a phone visit. This is an established patient of Dr. Brandon Shaver MD. COVID positive test on 03/17/23, day [...] surgery with implants- Dr Jacob Aguilar at [facility] PAST SURGICAL HISTORY OF 07/27/2015 cryo ablation, cardiac RPR UMBILICAL HRNA 5 YRS/> REDUCIBLE 07/17/2010 Hernia repair, umbilical >5yr [facility] Dr Manuel Hoover SHX COSMETIC SURGERY SKIN [...] Take 0.5 tablets by mouth twice daily. isnykzafovp-wedcsmymn-bbmlupup (TRELEGY ELLIPTA) 100-62.5-25 mcg inhalation powder Inhale [...] 1,000 mg by mouth five times daily. NPYDTPK-UBKWLEXDQ-IGYO ORAL Take by mouth. FAMILY HISTORY Problem [...] to proceeding with nirmatrelvir/ritonavir treatment. Lupe Ballard APRN.ANITHA March 17, 2023 2:35 PM Prescription instructions reviewed with patient as applicable. Potential red flag symptoms discussed with the patient. Reviewed appropriate action plan to take if red flag symptoms occur. Patient agreeable to treatment plan. During this patient visit I have spent approximately 15 minutes in counseling regarding treatment options, medications, and coordinating care. Lupe Ballard APRN.CNP documented in this encounter [facility] 03-04-2023 Miscellaneous Notes Rx sent again. Davin Victor PA-C John from [facility] calling for clarification on pt's diclofenac, EC 75 mg. States order is written for Can use every other day. States he needs to know how many tablets and how many times per pay pt can take this. Please advise. Can send a new rx or call pharm back. Leif Orlando LPN documented in this encounter [facility] 03-04-2023 Note [facility] 03-04-2023 Miscellaneous Notes Patient was seen [...] on Friday. She has already spoke to and they are expecting her to be at work on Friday. Patient wants to know if a nurse can sign the paperwork for her so that she is able to go back on Friday. Please call patient back at [phone] to advice what the patient should do. Thank you Adriana Lopes documented in this encounter [facility] 03-04-2023 History of Present illness Narrative CC: [...] surgery with implants- Dr Jacob Aguilar at [facility] PAST SURGICAL HISTORY OF 07/27/2015 cryo ablation, cardiac RPR UMBILICAL HRNA 5 YRS/> REDUCIBLE 07/17/2010 Hernia repair, umbilical >5yr [facility] Dr Manuel Hoover SHX COSMETIC SURGERY SKIN BIOPSY HX ALLERGIES Cardizem [Diltiazem Hcl], Codeine, Entex [Phenylephrine-Guaifenesin], Etodolac, Meloxicam, Naproxen, Surgical Tape Adhesives [Other], Trazodone, and Zantac [Ranitidine Hcl] MEDICATIONS JARDIANCE 10 mg tablet Take 10 mg by mouth once daily. metoprolol succinate ER (TOPROL XL) 25 mg 24 hr tablet Take 0.5 tablets by mouth twice daily. crivveawkbb-igojjmqab-uqpvsnmx (TRELEGY ELLIPTA) 100-62.5-25 mcg inhalation powder Inhale [...] 1,000 mg by mouth five times daily. RJEDFTT-YDGDPRYRD-DVOI ORAL Take by mouth. lidocaine (LIDODERM) 5 [...] Patient much improved on new regimen with Trelegy Ellipta. Follow-up as planned with Dr. Gamboa [...] Davin Victor PA-C documented in this encounter [facility] 03-03-2023 Miscellaneous Notes Please see attach overnight pulse ox results and advise. 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 Much [...] surgery with implants- Dr Jacob Aguilar at [facility] PAST SURGICAL HISTORY OF 07/27/2015 cryo ablation, cardiac RPR UMBILICAL HRNA 5 YRS/> REDUCIBLE 07/17/2010 Hernia repair, umbilical >5yr [facility] Dr Manuel Hoover SHX COSMETIC SURGERY SKIN [...] tablet Take two daily for 5 days. ldrhettfhng-ufakiljbf-pexvyfrn (TRELEGY ELLIPTA) 100-62.5-25 mcg inhalation powder Inhale [...] daily. (Patient not taking: No sig reported) VWFRLHF-UKOHHGHAC-ONNI ORAL Take by mouth. FAMILY HISTORY Problem [...] Gwendolyn Ballard APRN.ANITHA documented in this encounter [facility] 01-28-2023 Note [facility] 01-28-2023 Instructions Phil Oden MD - 01/28/2023 8:09 PM EDT Fill prescription for C diff if develop symptoms as before. Can get tested if needed documented in this encounter [facility] 01-28-2023 History of Present illness Narrative This note was created using SimilarSites.comter. Subjective Elizabeth Delgado is a 77 year [...] had ablation therapy for a fib through [place] but states that did not work well. [...] tablet Take two daily for 5 days. dzypagxhdrp-anzmdqxjn-gvgmjefn (TRELEGY ELLIPTA) 100-62.5-25 mcg inhalation powder Inhale [...] daily. (Patient not taking: No sig reported) DCDTMCJ-BQYZDGWAS-PCEJ ORAL Take by mouth. No current facility-administered [...] failure type (HCC) I50.9 compensated; needs new varnishing machine operator in [facility] system Above issues addressed with [...] the date of the service which included hkdu-ya-qpyt patient care, completing clinical documentation, obtaining and/or reviewing separately obtained history, performing a medically appropriate examination, counseling and educating the patient/family/caregiver, and ordering medications, tests, or procedures. Phil Oden MD documented in this encounter [facility] 01-27-2023 Note [facility] 01-27-2023 Note [facility] 01-27-2023 History of Present illness Narrative Images from the original note were not included. . [facility] [place] Note Patient name: Elizabeth Delgado PCP: Brandon Shaver MD Referring Physician: Gwendolyn Ballard CNP Consultation [...] for evaluation of COPD. Recently admitted to [facility] with hypoxemic respiratory failure due to PNA [...] mo ago NT Pro BNP <450 pg/mL 516 High Resulting Agency [facility] Imaging / Diagnostic Studies: DATE [...] acute radiographic abnormality. Reviewed chest [facility] from [facility] 04/27/2022 shows moderate upper lobe emphysema [...] tablet Take two daily for 5 days. utuzvnizeki-uhkipqirv-pmhsgkgv (TRELEGY ELLIPTA) 100-62.5-25 mcg inhalation powder Inhale [...] daily. (Patient not taking: No sig reported) MZDKBRD-MFBRKQYSS-FWLR ORAL Take by mouth. Social History Tobacco [...] surgery with implants- Dr Jacob Aguilar at [facility] PAST SURGICAL HISTORY OF 07/27/2015 cryo ablation, cardiac RPR UMBILICAL HRNA 5 YRS/> REDUCIBLE 07/17/2010 Hernia repair, umbilical >5yr [facility] Dr Manuel Hoover SHX COSMETIC SURGERY SKIN [...] -Anticoagulated -Rate controlled Sylvia Gamboa MD [facility] [place] documented in this encounter [facility] 01-24-2023 Miscellaneous Notes Pt notified and voiced [...] dose of metoprolol? Thank you Gwendolyn Ballard APRN.CNP Pt had blood work done at [facility] View External Labs - Chemistry [ID [id number]] Stephanie Randolph Ma documented in this encounter [facility] 01-23-2023 Note [facility] 01-23-2023 Note [facility] 01-23-2023 Instructions Gwendolyn Ballard APRN.ANITHA - 01/23/2023 3:00 PM EDT Decrease Metoprolol to 25mg Twice daily until you see cardiology. Flonase 2 sprays each nostril before bed and rinse out mouth after. documented in this encounter [facility] 01-23-2023 History of Present illness Narrative CC: Patient presents with: [facility] F[facility]U [facility] Elizabeth Delgado is a 77 year [...] see pulmonology, but unable to get into [facility]ology until April. Presents today stating she [...] surgery with implants- Dr Jacob Aguilar at [facility] PAST SURGICAL HISTORY OF 07/27/2015 cryo ablation, cardiac RPR UMBILICAL HRNA 5 YRS/> REDUCIBLE 07/17/2010 Hernia repair, umbilical >5yr [facility] Dr Manuel Hoover SHX COSMETIC SURGERY SKIN [...] (ONE-A-DAY 50 PLUS ORAL) Take by mouth. PVBYOVL-WZZUAZCOX-SRIU ORAL Take by mouth. CALCIUM CARBONATE/VITAMIN D3 [...] last year, trying to find a new varnishing machine operator that she can see regularly - ECG [...] trying to get patient in with [facility] shipping lead person - CONSULT TO CARDIOLOGY 8. History of recent hospitalization - ICD9: V13.9, ICD10: Z92.89 - D-DIMER 9. Acute pain of right shoulder - ICD9: 719.41, ICD10: M25.511 - scapula tender but no deformities noted - XR SHOULDER HEVKCQQ9E AP/TRUE AP RIGHT 10. Fall, initial encounter - ICD9: E888.9, ICD10: W19.XXXA - XR SHOULDER XFWCNVM5E AP/TRUE AP RIGHT Prescription instructions reviewed with patient as applicable. Potential red flag symptoms discussed with the patient. Reviewed appropriate action plan to take if red flag symptoms occur. Patient agreeable to treatment plan. Gwendolyn Ballard APRN.CNP documented in this encounter [facility] 01-10-2023 Note [facility] 01-10-2023 History of Present illness Narrative [...] legs at the same time. Went to [facility] for her scheduled visit but [...] surgery with implants- Dr Jacob Aguilar at [facility] PAST SURGICAL HISTORY OF 07/27/2015 cryo ablation, cardiac RPR UMBILICAL HRNA 5 YRS/> REDUCIBLE 07/17/2010 Hernia repair, umbilical >5yr [facility] Dr Manuel Hoover SHX COSMETIC SURGERY SKIN [...] daily. (Patient not taking: No sig reported) IMLSNGE-GQBITCREH-TNZH ORAL Take by mouth. FAMILY HISTORY Problem [...] by cardiology - patient has appointment with varnishing machine operator next Friday - Follow up in 2 [...] Gwendolyn Ballard APRN.CNP documented in this encounter [facility] 01-03-2023 Note [facility] 01-03-2023 History of Present illness Narrative [...] GFR was 57 and Creatinine 1.03 Facility: [facility] Date of visit: Reason for visit: short of breath Hospital [...] surgery with implants- Dr Jacob Aguilar at [facility] PAST SURGICAL HISTORY OF 07/27/2015 cryo ablation, cardiac RPR UMBILICAL HRNA 5 YRS/> REDUCIBLE 07/17/2010 Hernia repair, umbilical >5yr [facility] Dr Manuel Hoover SHX COSMETIC SURGERY SKIN [...] daily. (Patient not taking: No sig reported) ZJNUUWN-GVJIFJDAQ-CZET ORAL Take by mouth. FAMILY HISTORY Problem [...] MAMMOGRAM Discontinued DATA REVIEWED: Outside chart from [place] reviewed. Also reviewed recent lab work for [...] Gwendolyn Ballard APRN.CNP documented in this encounter [facility] 12-30-2022 Miscellaneous Notes Patient notified. Felicitas Prince [...] the last year. Thank you Gwendolyn Ballard APRN.CNP documented in this encounter [facility] 12-26-2022 Note [facility] 12-26-2022 Miscellaneous Notes Spoke with patient. [...] any infectious process. Thank you Gwendolyn Ballard APRN.CNP documented in this encounter [facility] 12-26-2022 History of Present illness Narrative Radiology [...] TIME: 3:32 PM documented in this encounter [facility] 12-26-2022 Note [facility] 12-26-2022 History of Present illness Narrative [...] surgery with implants- Dr Jacob Aguilar at [facility] PAST SURGICAL HISTORY OF 07/27/2015 cryo ablation, cardiac RPR UMBILICAL HRNA 5 YRS/> REDUCIBLE 07/17/2010 Hernia repair, umbilical >[address]yr [facility] Dr Manuel Hoover SHX COSMETIC SURGERY SKIN [...] daily. (Patient not taking: No sig reported) SHVAVEZ-TDTAWHVCW-VVGL ORAL Take by mouth. FAMILY HISTORY Problem [...] Gwendolyn Ballard APRN.CNP documented in this encounter [facility] 12-13-2022 Miscellaneous Notes Agree. Patient needs to [...] Gwendolyn Ballard APRN.CNP documented in this encounter [facility] 12-12-2022 Note [facility] 12-12-2022 Note [facility] 12-12-2022 History of Present illness Narrative [...] some pain yesterday in her right ear. residential nurse she saw 2 weeks ago and then [...] surgery with implants- Dr Jacob Aguilar at [facility] PAST SURGICAL HISTORY OF 07/27/2015 cryo ablation, cardiac RPR UMBILICAL HRNA 5 YRS/> REDUCIBLE 07/17/2010 Hernia repair, umbilical >5yr [facility] Dr Manuel Hoover SHX COSMETIC SURGERY SKIN [...] daily. (Patient not taking: No sig reported) DTIRUHT-NOBYHGKWH-LRSK ORAL Take by mouth. FAMILY HISTORY Problem [...] Gwendolyn Ballard APRN.ANITHA documented in this encounter [facility] 10-31-2022 Note [facility] 10-31-2022 History of Present illness Narrative [...] surgery with implants- Dr Jacob Aguilar at [facility] PAST SURGICAL HISTORY OF 07/27/2015 cryo ablation, cardiac RPR UMBILICAL HRNA 5 YRS/> REDUCIBLE 07/17/2010 Hernia repair, umbilical >5yr [facility] Dr Manuel Hoover SHX COSMETIC SURGERY SKIN [...] MULTIVITAMIN WITH MINERALS (ONE-A-DAY 50 PLUS ORAL) LBZCSGB-UENZMFTAT-PYBA ORAL sucralfate (CARAFATE) 1 gram tablet CALCIUM [...] Cont all meds till she sees the varnishing machine operator 2. Generalized arthritis - ICD9: 716.90, ICD10: [...] I50.9 Stable - Continue current medications Brandon Shaver MD documented in this encounter [facility] 10-04-2022 Note [facility] 10-01-2022 Note [facility] 10-01-2022 History of Present illness Narrative NAME: ELIZABETH DELGADO [facility] NO: [id number] DATE OF SERVICE: 10/01/2022 Subjective: Elizabeth is [...] concerns. Zuleyma Meredith D.O. KB/089 Audio #: [id number] Date Dictated: 10/01/2022 09:14:01 Date Typed: 10/05/2022 05:09:37 Date Revised: documented in this encounter [facility] 09-30-2022 Note [facility] 09-26-2022 Note [facility] 09-26-2022 Note [facility] 09-13-2022 Instructions Talia Haque MD - 09/13/2022 11:16 AM EDT We will schedule physical therapy in [place]. Regular exercise and institute fall precautions. May [...] visit as needed. documented in this encounter [facility] 09-13-2022 History of Present illness Narrative Neurology Outpatient Consult [facility] [address] [place] [address] (phone)/[phone] (fax) Patient: Elizabeth Delgado Date of : 1945 Primary Care Provider: Brandon Shaver MD Assessment/Plan: Patient developed sudden onset of [...] Suggestion: We will schedule physical therapy in [place]. Regular exercise and institute fall precautions. May [...] cell) Chew apixaban (ELIQUIS) 5 mg Tab HAKYYKW-XNIEQSBHM-VSFP ORAL flecainide (TAMBOCOR) 100 MG tablet furosemide [...] 2022. She was admitted and evaluated in [facility]. Her brain MRI showed no acute [...] or delusion. 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 No recent falls or injury. She does [...] Gait is limping. documented in this encounter [facility] 09-03-2022 Note [facility] 09-03-2022 History of Present illness Narrative Images from the original note were not included. [facility] [place] DEPARTMENT OF VASCULAR SURGERY OUTPATIENT VISIT DATE September 03, 2022 OUTPATIENT VISIT TYPE CONSULTATION SERVICE DATE: 09/03/2022 SERVICE TIME: 10:30 AM PRIMARY CARE PHYSICIAN: Brandon Shaver MD REFERRING PROVIDER: Zuleyma Meredith [address] [place], [place] [id number] Consult requested for an opinion regarding the [...] surgery with implants- Dr Jacob Aguilar at [facility] PAST SURGICAL HISTORY OF 07/27/2015 cryo ablation, cardiac RPR UMBILICAL HRNA 5 YRS/> REDUCIBLE 07/17/2010 Hernia repair, umbilical >5yr [facility] Dr Manuel Hoover SHX COSMETIC SURGERY SKIN [...] (ONE-A-DAY 50 PLUS ORAL) Take by mouth. BFCVGCF-WMMTKDLKJ-WJAM ORAL Take by mouth. sucralfate (CARAFATE) 1 [...] TIME: 10:30 AM documented in this encounter [facility] 08-29-2022 Note [facility] 08-29-2022 History of Present illness Narrative [...] her ER visit. She had seen Gwendolyn my nurse practitioner in a week for follow [...] diastolic dysfunction She has been to the varnishing machine operator for 2 days ago and is back [...] surgery with implants- Dr Jacob Aguilar at [facility] PAST SURGICAL HISTORY OF 07/27/2015 cryo ablation, cardiac RPR UMBILICAL HRNA 5 YRS/> REDUCIBLE 07/17/2010 Hernia repair, umbilical >5yr [facility] Dr Manuel Hoover SHX COSMETIC SURGERY SKIN [...] ORAL) CALCIUM CARBONATE/VITAMIN D3 (VITAMIN D-3 ORAL) PKISDLY-SJALMFPBN-EIIP ORAL Review of Systems CONSTITUTIONAL: No fevers, [...] not taking stable at this point Brandon Shaver MD documented in this encounter [facility] 08-15-2022 Note [facility] 08-09-2022 Miscellaneous Notes Noted Gwendolyn Ballard APRN.CNP Patient did go to [facility] ER. Olga Lidia Lima RN Reviewed triage [...] nausea 8. : NO Protocols used: Neurologic Jzqrvcl-UNZEQ-RF documented in this encounter [facility] 07-25-2022 Miscellaneous Notes Pt already scheduled. Nadia Bourne Please set her up with Dr Meredith I do think there is a back component too with it but yes we can see what the vascular part of it is RegardsBrandon MD This is for problems wanting. Patient walks and then is unable to walk. like the blood flow stopped . Felicitas Prince LPN Please confirm the diagnosis she needs this for. RegardsBrandon MD patient is needing a referral to Dr. Eddie Segal for her insurance. Felicitas Prince LPN documented in this encounter [facility] 07-21-2022 Note [facility] 07-21-2022 History of Present illness Narrative FOLLOW UP VISIT - ENDOSCOPY NAME: Elizabeth Deglado [facility] NO.: [id number] DATE OF SERVICE: July 18, 2022 : 1945 REFERRING PHYSICIAN: Brandon Shaver MD Elizabeth is a patient I am [...] patient had a swallow study performed at [facility] which she noted was demonstrating food [...] - External and internal hemorrhoids. Pathology demonstrated: Park Ranger Specimen originated from [facility] Specimen #: [id number] Submitting Physician: KLAUS CORDOBA MD FINAL DIAGNOSIS [...] biopsies (D) - Fragments of hyperplastic polyp. JJ/kr 11/24/2015 COMMENT 1. Results of an immunohistochemical stain for H. pylori will be reported in an addendum. Follow-up upper endoscopy on February 28, 2016. Pathology from this endoscopy demonstrated: FINAL DIAGNOSIS Gastric antrum, biopsy - Reactive gastropathy. - No histomorphologic evidence of Helicobacter pylori organisms. The patient is being seen by me today at the request of Dr. Brandon Shaver MD for my opinion and advice regarding [...] regurgitation symptoms. She followed up with her varnishing machine operator on July 05, 2022. TRhey felt she [...] Katheryn Stokes MD documented in this encounter [facility] 07-04-2022 Miscellaneous Notes Forms were filled Spoke with patient and states her start date date of 04/29 and end date of 06/24.This was continuous leave Please get the exact date we need to write for starting and ending and also if this is the one time continuous leave that she is requesting Regards, Brandon Shaver MD Type of form: FMLA Form received via fax When form is completed, Fax form to [facility] Form has been forwarded to Physician Desk: Dr. Dr. Sindhu Saha LPN documented in this encounter [facility] 06-18-2022 Nurse Note faxing letter to [facility] HR at [phone] documented in this encounter [facility] [facility] History of Present illness Narrative Reason [...] surgery with implants- Dr Jacob Aguilar at [facility] PAST SURGICAL HISTORY OF 07/27/2015 cryo ablation, cardiac RPR UMBILICAL HRNA 5 YRS/> REDUCIBLE 07/17/2010 Hernia repair, umbilical >5yr [facility] Dr Manuel Hoover SHX COSMETIC SURGERY SKIN [...] ORAL) CALCIUM CARBONATE/VITAMIN D3 (VITAMIN D-3 ORAL) [id number] ORAL Review of Systems CONSTITUTIONAL: No fevers, [...] visit - Goal of BP <130/80 Brandon Shaver MD documented in this encounter [facility] 06-17-2022 Miscellaneous Notes Patient notified. ----- Message from Brandon Shaver MD sent at 06/16/2022 8:29 PM EST ----- Elizabeth, I would like you to cut out the vit d supplements totally for 3 montsh as the vit d is very high. The pancrease enzymes were normal so was vit d Regards, Brandon Shaver MD documented in this encounter [facility] 06-08-2022 History of Present illness Narrative Dear [...] reports. Her imaging studies done at the [facility] radiology CT scan abdomen shows that there is a questionable calcified gallbladder with some abnormalities noted. Looking at her ultrasound from [facility] they stated do not have a [...] hence I am Reaching out. Regards, Brandon Shaver MD documented in this encounter [facility] 06-08-2022 History of Present illness Narrative Reason [...] surgery with implants- Dr Jacob Aguilar at [facility] PAST SURGICAL HISTORY OF 07/27/15 cryo ablation, cardiac RPR UMBILICAL HRNA 5 YRS/> REDUCIBLE 07/17/2010 Hernia repair, umbilical >5yr [facility] Dr Manuel Hoover FAMILY HISTORY Problem Relation [...] ORAL) CALCIUM CARBONATE/VITAMIN D3 (VITAMIN D-3 ORAL) [id number] ORAL estradiol (ESTRACE) 0.01 % (0.1 mg/gram) [...] E55.9 - VITAMIN D 25 HYDROXY Brandon Shaver MD documented in this encounter [facility] 05-28-2022 History of Present illness Narrative Radiology [...] 2022 11:57 AM documented in this encounter [facility] 05-27-2022 Miscellaneous Notes 06/11/2022 colon asc Patient accepted sooner date Sonia Diane Business Transformation Manager Patient on waitlist for sooner opening with Dr. Stokes 07/02/2022 COLON/EGD ASC documented in this encounter [facility] 05-23-2022 History of Present illness Narrative HISTORY AND PHYSICAL Elizabeth Delgado 1945 REFERRING PHYSICIAN: Gwendolyn Ballard APRN.TYPE CASTER CHIEF COMPLAINT: Consult (Hiatal hernia) HPI: The [...] patient had a swallow study performed at [facility] which she noted was demonstrating food [...] - External and internal hemorrhoids. Pathology demonstrated: Park Ranger Specimen originated from [facility] Specimen #: [id number] Submitting Physician: KLAUS CORDOBA MD FINAL DIAGNOSIS [...] today at the request of Dr. Brandon Shaver MD for my opinion and advice regarding [...] surgery with implants- Dr Jacob Aguilar at [facility] PAST SURGICAL HISTORY OF 07/27/15 cryo ablation, cardiac RPR UMBILICAL HRNA 5 YRS/> REDUCIBLE 07/17/2010 Hernia repair, umbilical >5yr [facility] Dr Manuel Hoover Current Outpatient Medications Medication [...] 1,000 mg by mouth five times daily. [id number] ORAL Take by mouth. peg 3350-Electrolytes (GOLYTELY) [...] entered by the nurse and reviewed by wi Nursing Notes: Julieta Avendano RN 05/23/2022 2:10 [...] findings have been communicated to Dr. Brandon Shaver MD via shared medical record. This note will be forwarded to Dr. Brandon Shaver MD. Return to Clinic: The patient is instructed to follow-up with me after the testing has been completed. Katheryn Stokes MD documented in this encounter [facility] 05-23-2022 Instructions Katheryn Stokes MD - 05/23/2022 [...] If you do not have a responsible funeral car driver (family member or friend) with you [...] at your local pharmacy or drugstore pharmacy. 1 04/2019 Bowel Preparation Instructions for: Golytely, Nulytely, [...] midnight. 2 04/2019 documented in this encounter [facility] 05-23-2022 Nurse Note REVIEW OF SYSTEMS: General: [...] Julieta Avendano RN documented in this encounter [facility] 05-23-2022 Miscellaneous Notes Patient notified at appointment. ----- Message from Brandon Shaver MD sent at 05/23/2022 8:06 AM EST ----- Urine culture does not have any growth Regards, Brandon Shaver MD documented in this encounter [facility] 05-22-2022 Instructions Gwendolyn Ballard APRN.ANITHA - 05/22/2022 1:39 PM EST Restart omeprazole documented in this encounter [facility] 05-22-2022 History of Present illness Narrative CC: [...] had a multitude of complaints since end of February. Has had a normal stress test ordered [...] surgery with implants- Dr Jacob Aguilar at [facility] PAST SURGICAL HISTORY OF 07/27/15 cryo ablation, cardiac RPR UMBILICAL HRNA 5 YRS/> REDUCIBLE 07/17/2010 Hernia repair, umbilical >5yr [facility] Dr Manuel Hoover ALLERGIES Cardizem [Diltiazem Hcl], [...] 1,000 mg by mouth five times daily. [id number] ORAL Take by mouth. FAMILY HISTORY Problem [...] Gwendolyn Ballard APRN.CNP documented in this encounter [facility] 05-21-2022 Miscellaneous Notes Agree with keeping follow [...] Gwendolyn Ballard APRN.CNP documented in this encounter [facility] 05-17-2022 Miscellaneous Notes Patient states symptoms are not worse that they were, notified of new lab cultures and appointment scheduled. Are these symptoms worse than when saw 2 days ago? Legs were only slightly swollen at that visit. Has she called cardiology? Has she stopped drinking the pedialyte? Thank you Gwendolyn Ballard APRN.ANITHA Patient still c/o fever 99.5 high for [...] not felt right. Had surgery up in [place]. Patient is really wanting to go back to work. 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 Please review and advise documented in this encounter [facility] 05-15-2022 Instructions Gwendolyn Ballard APRN.ANITHA - 05/15/2022 11:57 AM EST Call cardiology for follow up. documented in this encounter [facility] 05-15-2022 History of Present illness Narrative CC: [...] Last visit was with different internal Medicine KNIFER UP after ER visit. Patient with history of [...] surgery with implants- Dr Jacob Aguilar at [facility] PAST SURGICAL HISTORY OF 07/27/15 cryo ablation, cardiac RPR UMBILICAL HRNA 5 YRS/> REDUCIBLE 07/17/2010 Hernia repair, umbilical >5yr [facility] Dr Manuel Hoover ALLERGIES Cardizem [Diltiazem Hcl], [...] 1,000 mg by mouth five times daily. [id number] ORAL Take by mouth. FAMILY HISTORY Problem [...] labs and imaging results. Outside chart from [facility] reviewed. ASSESSMENT/PLAN: 1. Shortness of breath [...] with more than 50% of the total hebs-jq-exne time of the visit in counseling / coordination of care. documented in this encounter [facility] 05-08-2022 Miscellaneous Notes Noted. Will review further [...] Gwendolyn Ballard APRN.CNP Spoke with patient, Dr Shaver wrote patietn off work 04/18-04/19. Patient went [...] Gwendolyn Ballard APRN.ANITHA documented in this encounter [facility] 05-01-2022 Miscellaneous Notes Brianda with Dr. Rider's office at [facility] called for referral and supporting papers faxed to [phone]. Identified pt with name and date of .. Done. Veronica Villar LPN documented in this encounter [facility] 04-30-2022 Miscellaneous Notes PATIENT NOTIFIED OF SAME. Order for US has been faxed to [facility] scheduling office. Recent labs and office note faxed to Dr. Rider's office. Patient had yet to hear from this office about an appointment. Did encourage patient to call his office to schedule a follow up. Barium swallow is scheduled for 05/14/22 at [facility] as that is the soonest available. Please [...] came back elevated. documented in this encounter [facility] 04-29-2022 History of Present illness Narrative SUBJECTIVE Elizabeth Delgado is a 76 year old female here today for an ER follow up. Chief Complaint Patient presents with: ER F/U: SOB and low hr Flecanide was decreased and heart rate has improved HPI Elizabeth Delgado is a 76 year old female who is an established patient of Dr. Shaver who presents today for ER follow up. She had presented to ER for shortness of breath and a low heart rate on 04/27/2022. She was seen at [facility] and those records are available for review today and were reviewed with this visit. She had been seen on 04/26 for a virtual visit with another internal medicine provider and then seen in [facility] on 04/27 and advised to go to [...] 1,000 mg by mouth five times daily. [id number]-[id number]-ECDR ORAL Take by mouth. 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 Her hands hurt her pretty good. Panlobular Emphysema ([facility]) - 04/28/2015 Atrial Fibrillation ([facility]) - 08/19/2014 Comment: afib 2012. Had [...] on the CT of chest done at [facility]. We will have her schedule for a [...] Hodan Stevens APRN-ANITHA documented in this encounter [facility] 04-27-2022 History of Present illness Narrative Called to triage patient by [facility] staff Patient presents with complaints of abdominal pain with distention. +trouble breathing Patient had mid abdominal TTP, Slight distention noted Discussed that additional imaging is needed, that is not available. Referred to ED Amicable documented in this encounter [facility] 04-19-2022 Miscellaneous Notes Patient notified. ----- Message from Brandon Shaver MD sent at 04/19/2022 1:43 PM EST ----- Chest xr is normal. documented in this encounter [facility] 03-22-2022 Miscellaneous Notes Patient notified. I sent in an updated FMLA form for her to return on 03/25 already, but will print a letter as well. Please notify patient this is ready for picker and packer. Thank you Gwendolyn Ballard APRN.ANITHA Pt called and states she is ready to return to work on Friday03-25-22. Pt requesting a letter that she can return to work without restrictions 03-25-22. Please call when this is ready and her sister will picker and packer for her. Veronica Villar LPN documented in this encounter [facility] 03-20-2022 Miscellaneous Notes Spoke with Ramona, new worksheet needing completed and faxed. Paperwork received Please call un. I am the one that filled out FMLA for the pneumonia and CHF I have been seeing patient for. What exactly do they need. Thank you Gwendolyn Ballard APRN.ANITHA [employer] called and is notified of providers message. They voice understanding and reports they will send the message to a support specialist. Asha Ortiz RN Elizabeth was working with the orthopedist for her FMLA, So I am not sure this message is for me But, that being said, yes I think she should be on leave. Regards, Brandon Shaver MD Edwardo from [facility] called in wanting to know if the provider had endorsed the Pt being off work. He was asking with what restrictions and when did they advise them to have off. The claim # is [id number]. Please call and advise. documented in this encounter [facility] 03-18-2022 History of Present illness Narrative CC: [...] surgery with implants- Dr Jacob Aguilar at [facility] PAST SURGICAL HISTORY OF 07/27/15 cryo ablation, cardiac RPR UMBILICAL HRNA 5 YRS/> REDUCIBLE 07/17/2010 Hernia repair, umbilical >5yr [facility] Dr Manuel Hoover ALLERGIES Cardizem [Diltiazem Hcl], [...] 1,000 mg by mouth five times daily. [id number] ORAL Take by mouth. FAMILY HISTORY Problem [...] Gwendolyn Ballard APRN.CNP documented in this encounter [facility] 03-08-2022 Instructions Gwendolyn Ballard APRN.ANITHA - 03/08/2022 11:34 AM EDT Take omeprazole first thing in the morning 1/2 to 1 hour prior to any other medication. Take antibiotics with food. Can use Tums for any heart burn as directed. documented in this encounter [facility] 03-08-2022 History of Present illness Narrative CC: [...] bilateral DVT (deep venous thrombosis) ([facility]) remote Esophageal reflux History of cardioversion 10/31/2018 [...] surgery with implants- Dr Jacob Aguilar at [facility] PAST SURGICAL HISTORY OF 07/27/15 cryo ablation, cardiac RPR UMBILICAL HRNA 5 YRS/> REDUCIBLE 07/17/2010 Hernia repair, umbilical >5yr [facility] Dr Manuel Hoover ALLERGIES Cardizem [Diltiazem Hcl], [...] 1,000 mg by mouth five times daily. [id number] ORAL Take by mouth. FAMILY HISTORY Problem [...] Gwendolyn Ballard APRN.CNP documented in this encounter [facility] 02-25-2022 Miscellaneous Notes Patient saw result via my chart. Alexandra Leonard ----- Message from Brandon Shaver MD sent at 02/25/2022 9:40 AM EDT ----- Please let patient know, her covid and flu, were negative Regards, Brandon Shaver MD documented in this encounter [facility] 02-22-2022 History of Present illness Narrative Reason [...] surgery with implants- Dr Jacob Aguilar at [facility] PAST SURGICAL HISTORY OF 07/27/15 cryo ablation, cardiac RPR UMBILICAL HRNA 5 YRS/> REDUCIBLE 07/17/2010 Hernia repair, umbilical >5yr [facility] Dr Manuel Hoover FAMILY HISTORY Problem Relation [...] ORAL) CALCIUM CARBONATE/VITAMIN D3 (VITAMIN D-3 ORAL) [id number] ORAL Review of Systems CONSTITUTIONAL: No fevers, [...] - OMEPRAZOLE 40 MG CAPSULE,DELAYED RELEASE Brandon Shaver MD documented in this encounter [facility] 01-21-2022 History of Present illness Narrative Reason [...] surgery with implants- Dr Jacob Aguilar at [facility] PAST SURGICAL HISTORY OF 07/27/15 cryo ablation, cardiac RPR UMBILICAL HRNA 5 YRS/> REDUCIBLE 07/17/2010 Hernia repair, umbilical >5yr [facility] Dr Manuel Hoover FAMILY HISTORY Problem Relation [...] ORAL) CALCIUM CARBONATE/VITAMIN D3 (VITAMIN D-3 ORAL) [id number] ORAL Review of Systems CONSTITUTIONAL: No fevers, [...] DICLOFENAC SODIUM 75 MG TABLET,DELAYED RELEASE Brandon Ganta, MD documented in this encounter [facility] 01-04-2022 Miscellaneous Notes Spoke with patient about [...] Mavis Saunders MD documented in this encounter [facility] 01-04-2022 Miscellaneous Notes Called patient verified name [...] 2022 11:34 AM documented in this encounter [facility] 12-28-2021 Miscellaneous Notes Per Trinidad Soto CNP she is okay to continue the probiotic. Called patient and made her aware. Tamica Rodriguez LPN Called and made patient aware of Eliquis hold instructions. Patient agreeable. Patient did have a question whether she needs to hold her probiotic since she is holding her vitamins? Received holding instructions from [facility] for patients Eliquis. Per RENEE Quinn patient is okay to hold Eliquis 3 day prior to surgery. Copy of letter given fto Trinidad Soto CNP and original sent to spray drier operator helper to scan. Tamica Rodriguez LPN documented in this encounter [facility] 12-27-2021 History of Present illness Narrative Radiology [...] 2021 10:16 AM documented in this encounter [facility] 12-26-2021 Miscellaneous Notes The patient is aware of the ultrasound appointment tomorrow at [facility]. LVM to call back to get her in touch with Dr. Pizarro documented in this encounter [facility] 12-24-2021 History of Present illness Narrative This [...] patient have an advanced directive: No Does [facility] have a copy of the patient's advanced [...] prescribed by anesthesia, internal medicine, surgeon, or KNIFER UP Stop NSAIDs, Aspirin (ASA), vitamins, herbal supplements, [...] jewelry, body piercing, makeup, contacts, lotions, nail afghan on fingers, or anything in hair on arrival to surgery Wear low healed shoes and loose fitting clothing Leave all valuables at home or with a family member Directions to [facility] and the [facility] Parking/parking validation on the day prior to [...] if after hours patient instructed to call spray drier operator helper and ask for manager administration smog technician onc resident. Additional teaching as indicated by patient/family learning needs. PATIENT LEARNING EVALUATION & FOLLOW UP PLAN: Patient and/or family express understanding of upcoming surgery, pre-operative preparation, the operative process, and post-operative instructions. Follow up plan: Complete - No need for follow-up Patient has a post-op appointment scheduled: Yes, 02/04/22 Referral (recommentation): None Educator: Irma Adair APRN.[facility] [place] documented in this encounter [facility] 12-24-2021 History and physical note HISTORY AND PHYSICAL EXAMINATION SERVICE DATE: 12/24/2021 SERVICE TIME: 8:25 AM PRIMARY CARE PHYSICIAN: Brandon Shaver MD REASON FOR VISIT: Elizabeth Delgado is [...] because of a vaginal prolapse. 09/21/2021 Dr. Lee Elizabeth Delgado is a 76 year old [...] fevers. Neurological: No history of TIA's, stroke, CARPENTER REFRIGERATOR tumor, impaired sensorium, hemiplegia, paraplegia or quadraplegia. No neurological symptoms or problems. Respiratory: +former smoker 2ppd/30 years Positive for: COPD (no rx). Negative for: asthma, pneumonia within 6 weeks and tobacco use. Cardiovascular: Positive for: anticoagulation therapy (Eliquis, following [facility]), atrial fibrillation (controlled on rx), CHF (on rx), DVT/PE (LE, >30 years ago, tx with AC at the time) and hypertension (on rx) Negative for: arrhythmia, CAD, chest pain, congenital heart defect, hyperlipidemia, recent [place], murmur/valvular heart disease, open heart surgery and valve surgery. GI: Positive for: dysphagia (difficulty with pills) and GERD (on rx) Negative for: abdominal pain, hepatitis, irritable bowel syndrome, inflammatory bowel disease, liver disease, nausea, pancreatitis, vomiting and ETOH >2 drinks/day. : Positive for: nephrolithiasis (hx). Negative for: urinary incontinence, renal failure and urinary tract infection. QUARTER BACKER: See HPI. Negative for: vaginal bleeding and [...] surgery with implants- Dr Jacob Aguilar at [facility] PAST SURGICAL HISTORY OF 07/27/15 cryo ablation, cardiac RPR UMBILICAL HRNA 5 YRS/> REDUCIBLE 07/17/2010 Hernia repair, umbilical >5yr [facility] Dr Manuel Hoover FAMILY HISTORY Problem Relation [...] by mouth five times daily. Taking Yes [id number]-[id number]-JQVU ORAL Take by mouth. Taking Yes No [...] or any previous visit (from the past 59995 hour(s)). Assessment Atrial fibrillation (HCC) Assessment: hx cardioversions x2 and ablation, controlled on rx, daily Eliquis, following [facility], pt states had a cardiac [...] heart failure) (HCC) Assessment: on rx, following [facility], records requested Mueller Activity Status [...] large neck Non-male patient STOP-Bang Score: 3 [id number] Score: Age: 65-74 Sex: female CHF history: Yes Hypertension history: Yes Stroke/TIA/thromboembolism history: Yes Vascular disease history: No Diabetes history: No [id number] Score: 6 ARISCAT Score: Age: 51-80 Preoperative [...] Labs Cardiac clearance and records requested from varnishing machine operator office, letter faxed CONSULTS: Patient does not require [...] AM PAGER/CONTACT #: documented in this encounter [facility] 12-24-2021 Instructions Trinidad Soto APRN.CNP - 12/24/2021 8:24 AM EDT PATIENT PREOPERATIVE INSTRUCTIONS Qiana Pizarro MD has scheduled you for your procedure at this surgery center: [facility] [place] Scheduling Office: [phone] --[address] [place] [address]. Please read below carefully for your personalized [...] Procedures: - YOU MUST HAVE A RESPONSIBLE BATT MACHINE OPERATOR TAKE YOU HOME. A AUTOMOTIVE GLASS MECHANIC OR POWER SHOVEL OPERATOR CANNOT BE MADE A RESPONSIBLE BATT MACHINE OPERATOR. - We recommend that a responsible person [...] call the Friday before. Your surgeon s space scheduler will tell you what time to call the office. - If you have not reached the departmental space scheduler by 5 P.M., call [phone] after 5 P.M. the day before your surgery. Please be aware that emergency situations arise, which may delay or change your surgical time. If this happens, we will notify you as soon as possible and regret any inconvenience. If you already have an Advance Directive, please fax a copy to [phone] or email to for it to be [...] Trinidad Soto APRN.ANITHA documented in this encounter [facility] 12-11-2021 Miscellaneous Notes Letter written requesting cardiac [...] days prior to her surgery. The patient's varnishing machine operator's contact information is: Dr. Ibarra with [facility] Routing to Dr. Pizarro to advise. Patient has appointment and needs forms to be cleared for surgery faxed to office of Dr. Ibarra [facility]. documented in this encounter [facility] 12-07-2021 History of Present illness Narrative TeleHealth - Follow-up Visit I have discussed the risks, benefits, and limitations of receiving care virtually with the patient. The patient expresses understanding and is willing to move forward. Elizabeth Delgado is a 76 year old (FAVD x 1) female s/p cholecystectomy (2017), umbilical hernia repair (2010), left oophorectomy (2010), [...] - Stage III / IV Cervix / [place] - Normal support POP-Q: Prolapse Noted: Yes [...] patient was offered a surgery/procedure at a [facility] facility. The surgeon/proceduralist and patient have discussed in [...] symptoms (15% if incontinence procedure, 20% for snoqualmie tissue repair, 5-15% if sacrocolpopexy), urinary retention [...] 100mg BID Miralax daiily Send prescriptions to [facility] on day of surgery Labs: H/H: [...] would recommend least invasive approach with vaginal snoqualmie tissue repair. Patient understands that there is [...] (not separately reported). documented in this encounter [facility] 10-17-2021 Miscellaneous Notes Letter printed and taken [...] in her mychart. Thank you Gwendolyn Ballard APRN.CNP Pt called and is notified of providers [...] recommend getting re-evaluated. Thank you Gwendolyn Ballard APRN.CNP Patient is needing a letter for today. She is having pain in her hip today and not able to go to work.Pt is requesting a letter be put in her my chart so that she may give to her employer. Felicitas Prince LPN documented in this encounter [facility] 09-21-2021 History of Present illness Narrative Elizabeth [...] L1 SAB1 IAB0 Ectopic0 Multiple0 Live Births0 Armature Winder Repair History LMP: Postmenopausal Age at Menarche: Age at First : Age at Menopause: Armature Winder Repair History Comments: Sexual Activity: Never; Male; Tubal [...] surgery with implants- Dr Jacob Aguilar at [facility] PAST SURGICAL HISTORY OF 07/27/15 cryo ablation, cardiac RPR UMBILICAL HRNA 5 YRS/> REDUCIBLE 07/17/2010 Hernia repair, umbilical >[address]yr [facility] Dr Manuel Hoover FAMILY HISTORY Problem Relation [...] 1,000 mg by mouth five times daily. [id number] ORAL Take by mouth. No current facility-administered [...] external genitalia normal, normal Bartholin's glands, urethra, Central's glands, no vulvar lesions, normal appearing perineal [...] which included preparing to see the patient, wqjx-bt-lohj patient care, completing clinical documentation, obtaining and/or reviewing separately obtained history, performing a medically appropriate examination and counseling and educating the patient/family/caregiver Lindsay Lee MD documented in this encounter [facility] 09-07-2021 Miscellaneous Notes Patient notified. She had [...] evaluate for diabetes. Thank you Gwendolyn Ballard APRN.ANITHA documented in this encounter [facility] documented as of this encounter (statuses as of 09/07/2021) [facility] History of Past illness Narrative* Problem Noted [...] of this encounter (statuses as of 09/21/2021) [facility] Narrative* Problem Noted [...] of this encounter (statuses as of 10/17/2021) [facility] Narrative* Problem Noted [...] of this encounter (statuses as of 11/12/2021) [facility] Narrative* Problem Noted [...] of this encounter (statuses as of 12/11/2021) [facility] Narrative* Problem Noted [...] of this encounter (statuses as of 12/24/2021) [facility] Narrative* Problem Noted [...] of this encounter (statuses as of 12/24/2021) [facility] Narrative* Problem Noted [...] of this encounter (statuses as of 12/28/2021) [facility] Narrative* Problem Noted [...] of this encounter (statuses as of 12/28/2021) [facility] Narrative* Problem Noted [...] of this encounter (statuses as of 12/30/2021) [facility] Narrative* Problem Noted [...] of this encounter (statuses as of 01/04/2022) [facility] Narrative* Problem Noted [...] of this encounter (statuses as of 01/04/2022) [facility] Narrative* Problem Noted [...] of this encounter (statuses as of 01/21/2022) [facility] Narrative* Problem Noted [...] of this encounter (statuses as of 02/06/2022) [facility] Narrative* Problem Noted [...] of this encounter (statuses as of 02/22/2022) [facility] Narrative* Problem Noted [...] of this encounter (statuses as of 02/25/2022) [facility] Narrative* Problem Noted [...] of this encounter (statuses as of 03/08/2022) [facility] N[facility]ative* Problem Noted [...] of this encounter (statuses as of 03/18/2022) [facility] Narrative* Problem Noted [...] of this encounter (statuses as of 03/20/2022) [facility] Narrative* Problem Noted [...] Tobacco use disorder 07/16/2006 01/10/2016 Overview: Quit - documented as of this encounter (statuses as of 03/22/2022) [facility] Narrative* Problem Noted [...] of this encounter (statuses as of 04/19/2022) [facility] Narrative* Problem Noted [...] of this encounter (statuses as of 04/27/2022) [facility] Narrative* Problem Noted [...] of this encounter (statuses as of 04/29/2022) [facility] Narrative* Problem Noted [...] of this encounter (statuses as of 04/30/2022) [facility] Narrative* Problem Noted [...] of this encounter (statuses as of 05/01/2022) [facility] Narrative* Problem Noted [...] of this encounter (statuses as of 05/15/2022) [facility] Narrative* Problem Noted [...] of this encounter (statuses as of 05/17/2022) [facility] Narrative* Problem Noted [...] of this encounter (statuses as of 05/18/2022) [facility] Narrative* Problem Noted [...] of this encounter (statuses as of 05/21/2022) [facility] Narrative* Problem Noted [...] of this encounter (statuses as of 05/23/2022) [facility] Narrative* Problem Noted [...] of this encounter (statuses as of 05/23/2022) [facility] Narrative* Problem Noted [...] of this encounter (statuses as of 05/23/2022) [facility] Narrative* Problem Noted [...] of this encounter (statuses as of 06/08/2022) [facility] Narrative* Problem Noted [...] of this encounter (statuses as of 06/08/2022) [facility] N[facility]ative* Problem Noted [...] of this encounter (statuses as of 06/17/2022) [facility] Narrative* Problem Noted [...] of this encounter (statuses as of 06/19/2022) [facility] N[facility]ative* Problem Noted [...] of this encounter (statuses as of 07/04/2022) [facility] N[facility]ative* Problem Noted [...] of this encounter (statuses as of 07/08/2022) [facility] Narrative* Problem Noted [...] of this encounter (statuses as of 07/21/2022) [facility] N[facility]ative* Problem Noted [...] of this encounter (statuses as of 07/25/2022) [facility] N[facility]ative* Problem Noted [...] of this encounter (statuses as of 08/09/2022) [facility] Narrative* Problem Noted [...] of this encounter (statuses as of 08/30/2022) [facility] Narrative* Problem Noted [...] of this encounter (statuses as of 09/05/2022) [facility] N[facility]ative* Problem Noted [...] of this encounter (statuses as of 10/15/2022) [facility] Narrative* Problem Noted [...] of this encounter (statuses as of 10/31/2022) [place] [address]-13-2016 History of Past illness Narrative* Problem Noted [...] of this encounter (statuses as of 12/13/2022) [facility]* Problem Noted [...] of this encounter (statuses as of 12/13/2022) [facility] illness Narrative* Problem Noted [...] of this encounter (statuses as of 12/27/2022) [facility] Narrative* Problem Noted [...] of this encounter (statuses as of 12/27/2022) [facility] Narrative* Problem Noted [...] of this encounter (statuses as of 12/31/2022) [facility] Narrative* Problem Noted [...] of this encounter (statuses as of 01/04/2023) [facility] Narrative* Problem Noted [...] of this encounter (statuses as of 01/17/2023) [facility] Narrative* Problem Noted [...] of this encounter (statuses as of 01/24/2023) [facility] Narrative* Problem Noted [...] of this encounter (statuses as of 01/27/2023) [facility] Narrative* Problem Noted [...] of this encounter (statuses as of 01/28/2023) [facility] Narrative* Problem Noted [...] of this encounter (statuses as of 01/28/2023) [facility] Narrative* Problem Noted [...] of this encounter (statuses as of 02/15/2023) [facility] N[facility]ative* Problem Noted [...] of this encounter (statuses as of 02/23/2023) [facility] Narrative* Problem Noted [...] of this encounter (statuses as of 03/03/2023) [facility] N[facility]* Problem Noted [...] of this encounter (statuses as of 03/04/2023) [facility] N[facility]* Problem Noted [...] of this encounter (statuses as of 03/05/2023) [facility] N[facility]* Problem Noted [...] of this encounter (statuses as of 03/06/2023) [facility] Narrative* Problem Noted [...] of this encounter (statuses as of 03/16/2023) [facility] Narrative* Problem Noted [...] of this encounter (statuses as of 03/16/2023) [facility] Narrative* Problem Noted [...] of this encounter (statuses as of 03/16/2023) [facility] Narrative* Problem Noted [...] of this encounter (statuses as of 03/16/2023) [facility] N[facility]* Problem Noted [...] of this encounter (statuses as of 03/18/2023) [facility] Narrative* Problem Noted [...] of this encounter (statuses as of 03/24/2023) [facility] Narrative* Problem Noted [...] of this encounter (statuses as of 03/25/2023) [facility] Narrative* Problem Noted [...] of this encounter (statuses as of 04/01/2023) [facility] Narrative* Problem Noted [...] of this encounter (statuses as of 04/11/2023) [facility] Narrative* Problem Noted [...] of this encounter (statuses as of 05/02/2023) [facility] Narrative* Problem Noted [...] as of this encounter (statuses as of 06/30/2023) [facility] 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- Primary documented in this encounter [facility] note* Diagnosis Encounter for screening mammogram for breast cancer documented in this encounter [facility] note* Diagnosis Pre-operative examination- Primary Preoperative examination, [...] Hypertonicity of bladder documented in this encounter [facility] note* Diagnosis Educational circumstance- Primary 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 Cystocele, midline Rectocele Incomplete uterovaginal prolapse Uterovaginal prolapse, incomplete Preoperative examination Preoperative examination, unspecified Overactive bladder Hypertonicity of bladder documented in this encounter [facility] note* Diagnosis 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 Cystocele, midline Rectocele Incomplete uterovaginal prolapse Uterovaginal prolapse, incomplete Preoperative examination Preoperative examination, unspecified Overactive bladder Hypertonicity of bladder 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 Cystocele, midline Rectocele Incomplete uterovaginal prolapse Uterovaginal prolapse, incomplete Preoperative examination Preoperative examination, unspecified Overactive bladder Hypertonicity of bladder documented in this encounter [facility] note* Diagnosis Incomplete uterovaginal prolapse- Primary Uterovaginal prolapse, incomplete Cystocele, midline 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 Rectocele Preoperative examination Preoperative examination, unspecified Overactive bladder Hypertonicity of bladder 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 Cystocele, midline Rectocele Incomplete uterovaginal prolapse Uterovaginal prolapse, incomplete Preoperative examination Preoperative examination, unspecified Overactive bladder Hypertonicity of bladder documented in this encounter [facility] note* Diagnosis Congestive heart failure, unspecified HF chronicity, unspecified heart failure type (HCC)- Primary Need for influenza vaccination Need for prophylactic vaccination and inoculation against influenza Frequency of urination Urinary frequency Primary hypertension Unspecified essential hypertension Generalized arthritis Urinary tract infection without hematuria, site unspecified [facility]* Diagnosis Sore throat- Primary Acute pharyngitis Chills with fever Fever, unspecified 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 Moses's esophagus [facility]* Diagnosis Pneumonia due to infectious organism, unspecified laterality, unspecified part of lung- Primary Congestive heart failure, unspecified HF chronicity, unspecified heart failure type (HCC) Gastroesophageal reflux disease, unspecified whether esophagitis present [facility]* Diagnosis Pneumonia due to infectious organism, unspecified laterality, unspecified part of lung- Primary documented in this encounter [facility] note* Diagnosis Abdominal pain, unspecified abdominal location- Primary Difficulty breathing Other dyspnea and respiratory abnormality [facility]* Diagnosis Hiatal hernia with GERD without esophagitis- Primary 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 Moses's esophagus Encounter for therapeutic drug monitoring Atrial fibrillation, unspecified type (HCC) [facility]* Diagnosis Elevated LFTs- Primary Other abnormal blood chemistry documented in this encounter [facility] note* Diagnosis Shortness of breath- Primary Fever, unspecified fever cause Other fatigue Elevated liver enzymes Other nonspecific abnormal serum enzyme levels Decreased appetite Anorexia Foul smelling urine Other nonspecific finding on examination of urine Dysphagia, unspecified type Hiatal hernia with GERD without esophagitis 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 Moses's esophagus Bilateral lower extremity edema Edema [facility]* Diagnosis Fever, unspecified fever cause- Primary Hiatal hernia with GERD without esophagitis documented in this encounter [facility] note* Diagnosis Epigastric pain- Primary Abdominal pain, epigastric Hiatal hernia with GERD without esophagitis Bowel habit changes Other symptoms involving digestive system Other fatigue Nausea Nausea alone Fever, unspecified fever cause [facility]* Diagnosis Personal history of colonic polyps- Primary Hiatal hernia with GERD without esophagitis Dysphagia, unspecified type Incisional hernia, without obstruction or gangrene Incisional hernia without mention of obstruction or gangrene documented in this encounter [facility] note* Diagnosis Abdominal pain, unspecified abdominal location- Primary Other fatigue Fever, unspecified fever cause Chills Chills (without fever) Vitamin B12 deficiency Other B-complex deficiencies Vitamin D deficiency Unspecified vitamin D deficiency documented in this encounter [facility] note* Diagnosis Congestive heart failure, unspecified HF chronicity, unspecified heart failure type (HCC)- Primary Atrial fibrillation, unspecified type (HCC) Primary hypertension Unspecified essential hypertension documented in this encounter [facility] note* Diagnosis Incisional hernia, without obstruction or gangrene- Primary Incisional hernia without mention of obstruction or gangrene Dysphagia, unspecified type Hiatal hernia with GERD without esophagitis Personal history of colonic polyps documented in this encounter [facility] note* Diagnosis PAD (peripheral artery disease) (HCC)- Primary Peripheral vascular disease, unspecified documented in this encounter [facility] note* Diagnosis Cerebrovascular accident (CVA), unspecified mechanism (HCC)- Primary documented in this encounter [facility] note* Diagnosis Bradycardia- Primary Other specified cardiac dysrhythmias Acute non-recurrent maxillary sinusitis Congestive heart failure, unspecified HF chronicity, unspecified heart failure type (HCC) Atrial fibrillation, unspecified type (HCC) Panlobular emphysema (HCC) Other emphysema 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 Moses's esophagus documented in this encounter [facility] note* Diagnosis Peripheral arterial disease (HCC)- Primary Peripheral vascular disease, unspecified documented in this encounter [facility] note* Diagnosis Lumbar spondylosis- Primary Lumbosacral spondylosis without myelopathy TIA (transient ischemic attack) Unspecified transient cerebral ischemia documented in this encounter [facility] note* Diagnosis TIA (transient ischemic attack) Unspecified transient cerebral ischemia documented in this encounter [facility] note* Diagnosis Peripheral arterial disease (HCC)- Primary Peripheral vascular disease, unspecified documented in this encounter [facility] note* Diagnosis Atrial fibrillation, unspecified type (HCC)- Primary Generalized arthritis Primary hypertension Unspecified essential hypertension Congestive heart failure, unspecified HF chronicity, unspecified heart failure type (HCC) documented in this encounter [facility] note* Diagnosis Fever, unspecified fever cause- Primary Cough, unspecified type Wheezing Sore throat Acute pharyngitis Bilateral lower extremity edema Edema Congestive heart failure, unspecified HF chronicity, unspecified heart failure type (HCC) documented in this encounter [facility] note* Diagnosis Left lower quadrant abdominal pain- Primary Right lower quadrant abdominal tenderness without rebound tenderness Bowel habit changes Other symptoms involving digestive system Blood in stool documented in this encounter [facility] note* Diagnosis Right lower quadrant abdominal pain- Primary Abdominal pain, right lower quadrant Left lower quadrant abdominal pain Blood in stool Bowel habit changes Other symptoms involving digestive system Stool mucus Nonspecific abnormal finding in stool contents Dark stools Nonspecific abnormal finding in stool contents documented in this encounter [facility] note* Diagnosis C. difficile diarrhea- Primary Intestinal infection due to clostridium difficile documented in this encounter [facility] note* Diagnosis History of recent hospitalization- Primary [...] on supplemental oxygen documented in this encounter [facility] note* Diagnosis Pneumonia due to infectious organism, unspecified laterality, unspecified part of lung- Primary Atrial fibrillation, unspecified type (HCC) Abnormal EKG Nonspecific abnormal electrocardiogram (ECG) (EKG) Congestive heart failure, unspecified HF chronicity, unspecified heart failure type (HCC) documented in this encounter [facility] note* Diagnosis SOB (shortness of breath) Shortness of breath documented in this encounter [facility] note* Diagnosis Stage 3 severe COPD by GOLD classification ([facility])- Primary Acute bronchitis, unspecified organism Former cigarette smoker Personal history of tobacco use, presenting hazards to health Paroxysmal atrial fibrillation (HCC) Atrial fibrillation documented in this encounter [facility] note* Diagnosis Atrial fibrillation, unspecified type (HCC)- [...] Fall, initial encounter documented in this encounter [facility] note* Diagnosis Primary hypertension- Primary Unspecified essential hypertension Chronic congestive heart failure, unspecified heart failure type (HCC) Chronic obstructive pulmonary disease, unspecified COPD type (HCC) Paroxysmal atrial fibrillation (HCC) Atrial fibrillation Encounter for immunization Need for other specified prophylactic vaccination against single bacterial disease [facility]* Diagnosis Paroxysmal atrial fibrillation (HCC)- Primary Atrial fibrillation Chronic obstructive pulmonary disease with acute exacerbation (HCC) Obstructive chronic bronchitis with exacerbation History of Clostridium difficile colitis Personal history of other diseases of digestive system Chronic congestive heart failure, unspecified heart failure type (HCC) [facility]* Diagnosis Generalized arthritis documented in this encounter [facility] note* Diagnosis Chronic obstructive pulmonary disease, unspecified COPD type (HCC)- Primary Generalized arthritis [facility]* Diagnosis Hiatal hernia with GERD without esophagitis Personal history of colonic polyps documented in this encounter [facility] note* Diagnosis Left lower quadrant abdominal pain Right lower quadrant abdominal tenderness without rebound tenderness Bowel habit changes Other symptoms involving digestive system Blood in stool documented in this encounter [facility] note* Diagnosis COVID-19 virus infection- [facility] Diagnosis Acute non-recurrent sinusitis, unspecified location- Primary documented in this encounter [facility] note* Diagnosis Chronic congestive heart failure, unspecified heart failure type (HCC)- Primary Paroxysmal atrial fibrillation (HCC) Atrial fibrillation Primary hypertension Unspecified essential hypertension History of CVA (cerebrovascular accident) Transient ischemic attack (TIA), and cerebral infarction without residual deficits Thrush Candidiasis of mouth documented in this encounter [facility] for referral (narrative)* Diagnostic Procedure Only (Routine) - Pending Review Specialty Diagnoses / Procedures Referred By Dimitri larios Referred To Contact [facility] Diagnoses Encounter for screening mammogram for breast cancer Procedures CLARIBEL SCREENING SCREENING MAMMOGRAPHY BI 2-VIEW BREAST INC CAD Brandon Shaver MD [address] [place] [address] [facility] [address] [place] [phone] Referral ID Status Reason Start Date Expiration Date Visits Requested Visits Authorized [id number] Pending Review Auto-Generat ed Referral 11/07/2021 12/07/2022 1 1 [facility] for referral (narrative)* Diagnostic Procedure Only (Routine) - Closed Specialty Diagnoses / Procedures Referred By Contac t Referred To Contact [facility] Diagnoses 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 Cystocele, midline Rectocele Incomplete uterovaginal prolapse Preoperative examination Overactive bladder Procedures US FEMALE PELVIS TRANSVAG US TRANSVAGINAL Qiana Pizarro MD [address] [place] [address] Us Imaging Referral ID Status Reason Start Date Expiration Date V isits Requested Visits Authorized [id number] Closed Auto-Generate d Referral 12/04/2021 01/03/2023 1 1 [facility] for referral (narrative)* Diagnostic Procedure Only (Routine) - Pending Review Specialty Diagnoses / Procedures Referred By Alexandraac t Referred To Contact XR IMAGING Diagnoses Hiatal hernia with GERD without esophagitis Procedures XR MODIFIED BARIUM SWALLOW W SPEECH THERAPY RADIOLOGIC EXAM SWALLOW FUNCTION CONTRAST STUDY Hodan Stevens APRN.TYPE CASTER [address] [place] [address] [address] Referral ID Status Reason Start Date Expiration Date Visits Requested Visits Authorized [id number] Pending Review Auto-Generat ed Referral 2 05/29/2023 1 1 [facility] for referral (narrative)* Diagnostic Procedure Only (Routine) - Authorized Specialty Diagnoses / Procedures Referred By Alexandraac t Referred To Contact US IMAGING Diagnoses Elevated LFTs Procedures US ABD RT UPPER QUADRANT US ABDOMINAL REAL TIME W/IMAGE LIMITED Hodan Stevens APRN.CNP [address] [place] [address] Us Imaging Referral ID Status Reason Start Date Expiration Date Visits Requested Visits Authorized [id number] Authorized Auto-Generat ed Referral 2 05/30/2023 1 1 [facility] for referral (narrative)* Outpatient Procedure (Routine) - Authorized Specialty Diagnoses / Procedures Referred By Contac t Referred To Contact [facility] Diagnoses Peripheral arterial disease (HCC) Procedures PVR LEG W/EXC LIANA VAS LAB N-INVAS PHYSIOLOGIC STD LXTR ART COMPL BI Zuleyma Meredith DO [address] [place] [address] [facility] [place] [address] Referral ID Status Reason Start Date Expiration Date Visits Requested Visits Authorized [id number] Authorized Auto-Generat ed Referral 09/03/2022 09/03/2023 1 1 [facility] for referral (narrative)* Outpatient Procedure (Routine) - Closed Specialty Diagnoses / Procedures Referred By Contac t Referred To Contact [facility] Diagnoses SOB (shortness of breath) Procedures LUNG DIFFUSION CAPACITY (DLCO) DIFFUSING CAPACITY Sylvia Gamboa MD [address] [place] [address] [address] Referral ID Status Reason Start Date Expiration Date V isits Requested Visits Authorized [id number] Closed Auto-Generate d Referral 01/27/2023 02/26/2024 1 1 * Outpatient Procedure (Routine) - Closed Specialty Diagnoses / Procedures Referred By Contac t Referred To Contact [facility] Diagnoses SOB (shortness of breath) Procedures SPIROMETRY WITH DILATOR IF OBSTRUCTED BRNCDILAT RSPSE SPMTRY PRE&POST-BRNCDILAT ADMN Sylvia Gamboa MD [address] [place] [address] [address] Referral ID Status Reason Start Date Expiration Date V isits Requested Visits Authorized [id number] Closed Auto-Generate d Referral 01/27/2023 05/11/2023 1 1 [facility] Advance Directives No Advanced Directives Records FoundDocuments on File Type Date Recorded Patient Filenet Admin Expl anation Advance Directive(s) 02/28/2016 12:15 PM Advance Directive(s) 02/21/2016 9:18 AM Advance Directive(s) 11/22/2015 12:01 PM Advance Directive(s) 11/10/2015 11:55 AM Documents on File Type Date Recorded Patient Filenet Admin Expl anation Advance Directive(s) 02/28/2016 12:15 PM Advance Directive(s) 02/21/2016 9:18 AM Advance Directive(s) 11/22/2015 12:01 PM Advance Directive(s) 11/10/2015 11:55 AM Reason for Referral Specialty Diagnoses / Procedures Referred By Contac t Referred To Contact Diagnoses 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 Procedures CONSULT TO FEMALE UROLOGY/URO GYNECOLOGY OFFICE/OUTPATIENT [facility] 60-74 MINUTES Lindsay Gongora MD [address] [place] [address] Referral ID Status Reason Start Date Expiration Date Visits Requested Visits Authorized [id number] Authorized PCP Requested Referral 09/21/2021 09/21/2022 1 1 Specialty Diagnoses / Procedures Referred By Contac t Referred To Contact Gastroenterology Diagnoses Elevated liver enzymes Decreased appetite Hiatal hernia with GERD without esophagitis 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 Procedures CONSULT TO GASTROENTEROLOGY OFFICE/[facility]IENT [facility] 60-74 MINUTES Gwendolyn Ballard APRN.TYPE CASTER [address] [place] [address] Referral ID Status Reason Start Date Expiration Date Visits Requested Visits Authorized [id number] Authorized PCP Requested Referral 05/15/2022 05/15/2023 1 1 Specialty Diagnoses / Procedures Referred By Contac t Referred To Contact General Surgery Diagnoses Hiatal hernia with GERD without esophagitis Procedures CONSULT TO GENERAL SURGERY OFFICE/OUTPATIENT [facility] 60-74 MINUTES Gwendolyn Ballard APRN.TYPE CASTER [address] [place] [address] Referral ID Status Reason Start Date Expiration Date Visits Requested Visits Authorized [id number] Authorized PCP Requested Referral 05/17/2022 05/17/2023 1 1 Specialty Diagnoses / Procedures Referred By Contac t Referred To Contact Infectious Diseases Diagnoses Fever, unspecified fever cause Procedures CONSULT TO INFECTIOUS DISEASES OFFICE/OUTPATIENT [facility] HIGH MDM 60-74 MINUTES Older, GwendolynSORAYA.TYPE CASTER [address] [place] [address] Referral ID Status Reason Start Date Expiration Date Visits Requested Visits Authorized [id number] Authorized PCP Requested Referral 05/22/2022 05/22/2023 1 1 Specialty Diagnoses / Procedures Referred By Contac t Referred To Contact CT IMAGING Diagnoses Hiatal hernia with GERD without esophagitis Personal history of colonic polyps Procedures CT ABD/PEL WO IVCON CT ABD & PELVIS W/O CONTRAST Katheryn Stokes MD [address] [place] [address] Ct Imaging Referral ID Status Reason Start Date Expiration Date Visits Requested Visits Authorized [id number] Pending Review Auto-Generat ed Referral 05/23/2022 06/22/2023 1 1 Specialty Diagnoses / Procedures Referred By Contac t Referred To Contact [facility] Diagnoses Hiatal hernia with GERD without esophagitis Personal history of colonic polyps Procedures COLONOSCOPY SCREENING COLONOSCOPY FLX DX W/COLLJ SPEC WHEN PFRMD Katheryn Stokes MD [address] [place] [address] [facility] [address] [place] [address] Referral ID Status Reason Start Date Expiration Date Visits Requested Visits Authorized [id number] Authorized Auto-Generat ed Referral 05/23/2022 05/23/2023 1 1 Specialty Diagnoses / Procedures Referred By Contac t Referred To Contact [facility] Diagnoses Hiatal hernia with GERD without esophagitis Personal history of colonic polyps Procedures EGD DIAGNOSTIC ESOPHAGOGASTRODUODENOSC OPY TRANSORAL DIAGNOSTIC Katheryn Stokes MD [address] [place] [address] [facility] [address] [place] [address] Referral ID Status Reason Start Date Expiration Date Visits Requested Visits Authorized [id number] Authorized Auto-Generat ed Referral 05/23/2022 05/23/2023 1 1 Specialty Diagnoses / Procedures Referred By Contac t Referred To Contact Vascular Surgery Diagnoses PAD (peripheral artery disease) (HCC) Procedures CONSULT TO VASCULAR SURGERY OFFICE/OUTPATIENT [facility] MDM 60-74 MINUTES Brandon Shaver MD [address] [place] [address] Referral ID Status Reason Start Date Expiration Date Visits Requested Visits Authorized [id number] Pending Review PCP Requested Referral 07/23/2022 07/19/2023 1 1 Specialty Diagnoses / Procedures Referred By Contac t Referred To Contact Neurology Diagnoses Cerebrovascular accident (CVA), unspecified mechanism (HCC) Gwendolyn Ballard CNP [address] [place] [address] [facility] [place] Referral ID Status Reason Start Date Expiration Date V isits Requested Visits Authorized [id number] Pending Review 08/19/2022 08/19/2023 1 1 Specialty Diagnoses / Procedures Referred By Contac t Referred To Contact Diagnoses Lumbar spondylosis Talia Haque MD [address] [place] [address] [facility] Speech Therapy [address] [place] [address] Referral ID Status Reason Start Date Expiration Date Visits Requested Visits Authorized [id number] Pending Review Patient Preference 09/13/2022 09/13/2023 1 1 Specialty Diagnoses / Procedures Referred By Contac t Referred To Contact CT IMAGING Diagnoses Left lower quadrant abdominal pain Right lower quadrant abdominal tenderness without rebound tenderness Bowel habit changes Blood in stool Procedures CT ABD/PEL W IVCON CT ABD & PELVIS W/CONTRAST Gwendolyn Ballard APRN.TYPE CASTER [address] [place] [address] [place] [address] Referral ID Status Reason Start Date Expiration Date Visits Requested Visits Authorized [id number] Waiting for Online Response Auto-Generat ed Referral 12/26/2022 01/25/2024 2 2 Specialty Diagnoses / Procedures Referred By Contac t Referred To Contact Cardiology / [facility] [place] Diagnoses Atrial fibrillation, unspecified type (HCC) Bradycardia Shortness of breath Congestive heart failure, unspecified HF chronicity, unspecified heart failure type (HCC) On home oxygen therapy Procedures CONSULT TO CARDIOLOGY OFFICE/[facility]PATIENT [facility] 60-74 MINUTES Gwendolyn Ballard APRN.TYPE CASTER [address] [place] [address] Card [facility] Main [address] [place] [id number] Referral ID Status Reason Start Date Expiration Date Visits Requested Visits Authorized [id number] Pending Review PCP Requested Referral OON/Self Pay Override 01/23/2023 01/23/2024 1 1 Specialty Diagnoses / Procedures Referred By Contac t Referred To Contact XR IMAGING Diagnoses Fall, initial encounter Acute pain of right shoulder Procedures XR SHOULDER [id number] AP/TRUE AP RIGHT RADEX SHOULDER COMPLETE MINIMUM 2 VIEWS Gwendolyn Ballard APRN.TYPE CASTER [address] [place] [address] Xr Imaging [place] [address] Referral ID Status Reason Start Date Expiration Date V isits Requested Visits Authorized [id number] Closed Auto-Generate d Referral 01/23/2023 02/22/2024 1 1 Specialty Diagnoses / Procedures Referred By Contac t Referred To Contact [facility] Diagnoses Atrial fibrillation, unspecified type (HCC) Bradycardia Procedures ECG COMPLETE ECG ROUTINE ECG W/LEAST 12 LDS W/I&R Gwendolyn Ballard APRN.TYPE CASTER [address] [place] [address] [facility] [address] [place] [address] Referral ID Status Reason Start Date Expiration Date V isits Requested Visits Authorized [id number] Closed Auto-Generate d Referral 01/23/2023 01/23/2024 1 1 Specialty Diagnoses / Procedures Referred By Contac t Referred To Contact CT IMAGING Diagnoses Hiatal hernia with GERD without esophagitis Personal history of colonic polyps Procedures CT ABD/PEL WO IVCON CT ABD & PELVIS W/O CONTRAST Katheryn Stokes MD [address] [place] [id number] [place] [address] Referral ID Status Reason Start Date Expiration Date V isits Requested Visits Authorized [id number] Closed Auto-Generate d Referral 05/24/2022 05/11/2023 2 2 Referral ID Status Reason Start Date Expiration Date V isits Requested Visits Authorized [id number] Closed Auto-Generate d Referral 12/26/2022 01/25/2023 1 [...] or prosecute any alcohol or drug abuse patient.[facility] the event this information is protected by the Federal Confidentiality of Alcohol and Drug Abuse Patient Records regulations: The Federal rules restrict any use of the information to criminally investigate or prosecute any alcohol or drug abuse patient.[facility] CenterIn the event this information is protected by the Federal Confidentiality of Alcohol and Drug Abuse Patient Records regulations: The Federal rules restrict any use of the information to criminally investigate or prosecute any alcohol or drug abuse patient.[facility] CenterIn the event this information is protected by the Federal Confidentiality of Alcohol and Drug Abuse Patient Records regulations: The Federal rules restrict any use of the information to criminally investigate or prosecute any alcohol or drug abuse patient.[facility] CenterIn the event this information is protected by the Federal Confidentiality of Alcohol and Drug Abuse Patient Records regulations: The Federal rules restrict any use of the information to criminally investigate or prosecute any alcohol or drug abuse patient.[facility] CenterIn the event this information is protected by the Federal Confidentiality of Alcohol and Drug Abuse Patient Records regulations: The Federal rules restrict any use of the information to criminally investigate or prosecute any alcohol or drug abuse patient.[facility] CenterIn the event this information is protected by the Federal Confidentiality of Alcohol and Drug Abuse Patient Records regulations: The Federal rules restrict any use of the information to criminally investigate or prosecute any alcohol or drug abuse patient.[facility] CenterIn the event this information is protected by the Federal Confidentiality of Alcohol and Drug Abuse Patient Records regulations: The Federal rules restrict any use of the information to criminally investigate or prosecute any alcohol or drug abuse patient.[facility] CenterIn the event this information is protected by the Federal Confidentiality of Alcohol and Drug Abuse Patient Records regulations: The Federal rules restrict any use of the information to criminally investigate or prosecute any alcohol or drug abuse patient.[facility] CenterIn the event this information is protected by the Federal Confidentiality of Alcohol and Drug Abuse Patient Records regulations: The Federal rules restrict any use of the information to criminally investigate or prosecute any alcohol or drug abuse patient.[facility] CenterIn the event this information is protected by the Federal Confidentiality of Alcohol and Drug Abuse Patient Records regulations: The Federal rules restrict any use of the information to criminally investigate or prosecute any alcohol or drug abuse patient.[facility] CenterIn the event this information is protected by the Federal Confidentiality of Alcohol and Drug Abuse Patient Records regulations: The Federal rules restrict any use of the information to criminally investigate or prosecute any alcohol or drug abuse patient.[facility] CenterIn the event this information is protected by the Federal Confidentiality of Alcohol and Drug Abuse Patient Records regulations: The Federal rules restrict any use of the information to criminally investigate or prosecute any alcohol or drug abuse patient.[facility] CenterIn the event this information is protected by the Federal Confidentiality of Alcohol and Drug Abuse Patient Records regulations: The Federal rules restrict any use of the information to criminally investigate or prosecute any alcohol or drug abuse patient.[facility] CenterIn the event this information is protected by the Federal Confidentiality of Alcohol and Drug Abuse Patient Records regulations: The Federal rules restrict any use of the information to criminally investigate or prosecute any alcohol or drug abuse patient.[facility] CenterIn the event this information is protected by the Federal Confidentiality of Alcohol and Drug Abuse Patient Records regulations: The Federal rules restrict any use of the information to criminally investigate or prosecute any alcohol or drug abuse patient.[facility] CenterIn the event this information is protected by the Federal Confidentiality of Alcohol and Drug Abuse Patient Records regulations: The Federal rules restrict any use of the information to criminally investigate or prosecute any alcohol or drug abuse patient.[facility] CenterIn the event this information is protected by the Federal Confidentiality of Alcohol and Drug Abuse Patient Records regulations: The Federal rules restrict any use of the information to criminally investigate or prosecute any alcohol or drug abuse patient.[facility] CenterIn the event this information is protected by the Federal Confidentiality of Alcohol and Drug Abuse Patient Records regulations: The Federal rules restrict any use of the information to criminally investigate or prosecute any alcohol or drug abuse patient.[facility] CenterIn the event this information is protected by the Federal Confidentiality of Alcohol and Drug Abuse Patient Records regulations: The Federal rules restrict any use of the information to criminally investigate or prosecute any alcohol or drug abuse patient.[facility] CenterIn the event this information is protected by the Federal Confidentiality of Alcohol and Drug Abuse Patient Records regulations: The Federal rules restrict any use of the information to criminally investigate or prosecute any alcohol or drug abuse patient.[facility] CenterIn the event this information is protected by the Federal Confidentiality of Alcohol and Drug Abuse Patient Records regulations: The Federal rules restrict any use of the information to criminally investigate or prosecute any alcohol or drug abuse patient.[facility] CenterIn the event this information is protected by the Federal Confidentiality of Alcohol and Drug Abuse Patient Records regulations: The Federal rules restrict any use of the information to criminally investigate or prosecute any alcohol or drug abuse patient.[facility] CenterIn the event this information is protected by the Federal Confidentiality of Alcohol and Drug Abuse Patient Records regulations: The Federal rules restrict any use of the information to criminally investigate or prosecute any alcohol or drug abuse patient.[facility] CenterIn the event this information is protected by the Federal Confidentiality of Alcohol and Drug Abuse Patient Records regulations: The Federal rules restrict any use of the information to criminally investigate or prosecute any alcohol or drug abuse patient.[facility] CenterIn the event this information is protected by the Federal Confidentiality of Alcohol and Drug Abuse Patient Records regulations: The Federal rules restrict any use of the information to criminally investigate or prosecute any alcohol or drug abuse patient.[facility] CenterIn the event this information is protected by the Federal Confidentiality of Alcohol and Drug Abuse Patient Records regulations: The Federal rules restrict any use of the information to criminally investigate or prosecute any alcohol or drug abuse patient.[facility] CenterIn the event this information is protected by the Federal Confidentiality of Alcohol and Drug Abuse Patient Records regulations: The Federal rules restrict any use of the information to criminally investigate or prosecute any alcohol or drug abuse patient.[facility] CenterIn the event this information is protected by the Federal Confidentiality of Alcohol and Drug Abuse Patient Records regulations: The Federal rules restrict any use of the information to criminally investigate or prosecute any alcohol or drug abuse patient.[facility] CenterIn the event this information is protected by the Federal Confidentiality of Alcohol and Drug Abuse Patient Records regulations: The Federal rules restrict any use of the information to criminally investigate or prosecute any alcohol or drug abuse patient.[facility] CenterIn the event this information is protected by the Federal Confidentiality of Alcohol and Drug Abuse Patient Records regulations: The Federal rules restrict any use of the information to criminally investigate or prosecute any alcohol or drug abuse patient.[facility] CenterIn the event this information is protected by the Federal Confidentiality of Alcohol and Drug Abuse Patient Records regulations: The Federal rules restrict any use of the information to criminally investigate or prosecute any alcohol or drug abuse patient.[facility] CenterIn the event this information is protected by the Federal Confidentiality of Alcohol and Drug Abuse Patient Records regulations: The Federal rules restrict any use of the information to criminally investigate or prosecute any alcohol or drug abuse patient.[facility] CenterIn the event this information is protected by the Federal Confidentiality of Alcohol and Drug Abuse Patient Records regulations: The Federal rules restrict any use of the information to criminally investigate or prosecute any alcohol or drug abuse patient.[facility] CenterIn the event this information is protected by the Federal Confidentiality of Alcohol and Drug Abuse Patient Records regulations: The Federal rules restrict any use of the information to criminally investigate or prosecute any alcohol or drug abuse patient.[facility] CenterIn the event this information is protected by the Federal Confidentiality of Alcohol and Drug Abuse Patient Records regulations: The Federal rules restrict any use of the information to criminally investigate or prosecute any alcohol or drug abuse patient.[facility] CenterIn the event this information is protected by the Federal Confidentiality of Alcohol and Drug Abuse Patient Records regulations: The Federal rules restrict any use of the information to criminally investigate or prosecute any alcohol or drug abuse patient.[facility] CenterIn the event this information is protected by the Federal Confidentiality of Alcohol and Drug Abuse Patient Records regulations: The Federal rules restrict any use of the information to criminally investigate or prosecute any alcohol or drug abuse patient.[facility] CenterIn the event this information is protected by the Federal Confidentiality of Alcohol and Drug Abuse Patient Records regulations: The Federal rules restrict any use of the information to criminally investigate or prosecute any alcohol or drug abuse patient.[facility] CenterIn the event this information is protected by the Federal Confidentiality of Alcohol and Drug Abuse Patient Records regulations: The Federal rules restrict any use of the information to criminally investigate or prosecute any alcohol or drug abuse patient.[facility] CenterIn the event this information is protected by the Federal Confidentiality of Alcohol and Drug Abuse Patient Records regulations: The Federal rules restrict any use of the information to criminally investigate or prosecute any alcohol or drug abuse patient.[facility] CenterIn the event this information is protected by the Federal Confidentiality of Alcohol and Drug Abuse Patient Records regulations: The Federal rules restrict any use of the information to criminally investigate or prosecute any alcohol or drug abuse patient.[facility] CenterIn the event this information is protected by the Federal Confidentiality of Alcohol and Drug Abuse Patient Records regulations: The Federal rules restrict any use of the information to criminally investigate or prosecute any alcohol or drug abuse patient.[facility] CenterIn the event this information is protected by the Federal Confidentiality of Alcohol and Drug Abuse Patient Records regulations: The Federal rules restrict any use of the information to criminally investigate or prosecute any alcohol or drug abuse patient.[facility] CenterIn the event this information is protected by the Federal Confidentiality of Alcohol and Drug Abuse Patient Records regulations: The Federal rules restrict any use of the information to criminally investigate or prosecute any alcohol or drug abuse patient.[facility] CenterIn the event this information is protected by the Federal Confidentiality of Alcohol and Drug Abuse Patient Records regulations: The Federal rules restrict any use of the information to criminally investigate or prosecute any alcohol or drug abuse patient.[facility] CenterIn the event this information is protected by the Federal Confidentiality of Alcohol and Drug Abuse Patient Records regulations: The Federal rules restrict any use of the information to criminally investigate or prosecute any alcohol or drug abuse patient.[facility] CenterIn the event this information is protected by the Federal Confidentiality of Alcohol and Drug Abuse Patient Records regulations: The Federal rules restrict any use of the information to criminally investigate or prosecute any alcohol or drug abuse patient.[facility] CenterIn the event this information is protected by the Federal Confidentiality of Alcohol and Drug Abuse Patient Records regulations: The Federal rules restrict any use of the information to criminally investigate or prosecute any alcohol or drug abuse patient.[facility] CenterIn the event this information is protected by the Federal Confidentiality of Alcohol and Drug Abuse Patient Records regulations: The Federal rules restrict any use of the information to criminally investigate or prosecute any alcohol or drug abuse patient.[facility] CenterIn the event this information is protected by the Federal Confidentiality of Alcohol and Drug Abuse Patient Records regulations: The Federal rules restrict any use of the information to criminally investigate or prosecute any alcohol or drug abuse patient.[facility] CenterIn the event this information is protected by the Federal Confidentiality of Alcohol and Drug Abuse Patient Records regulations: The Federal rules restrict any use of the information to criminally investigate or prosecute any alcohol or drug abuse patient.[facility] CenterIn the event this information is protected by the Federal Confidentiality of Alcohol and Drug Abuse Patient Records regulations: The Federal rules restrict any use of the information to criminally investigate or prosecute any alcohol or drug abuse patient.[facility] CenterIn the event this information is protected by the Federal Confidentiality of Alcohol and Drug Abuse Patient Records regulations: The Federal rules restrict any use of the information to criminally investigate or prosecute any alcohol or drug abuse patient.[facility] CenterIn the event this information is protected by the Federal Confidentiality of Alcohol and Drug Abuse Patient Records regulations: The Federal rules restrict any use of the information to criminally investigate or prosecute any alcohol or drug abuse patient.[facility] CenterIn the event this information is protected by the Federal Confidentiality of Alcohol and Drug Abuse Patient Records regulations: The Federal rules restrict any use of the information to criminally investigate or prosecute any alcohol or drug abuse patient.[facility] CenterIn the event this information is protected by the Federal Confidentiality of Alcohol and Drug Abuse Patient Records regulations: The Federal rules restrict any use of the information to criminally investigate or prosecute any alcohol or drug abuse patient.[facility] CenterIn the event this information is protected by the Federal Confidentiality of Alcohol and Drug Abuse Patient Records regulations: The Federal rules restrict any use of the information to criminally investigate or prosecute any alcohol or drug abuse patient.[facility] CenterIn the event this information is protected by the Federal Confidentiality of Alcohol and Drug Abuse Patient Records regulations: The Federal rules restrict any use of the information to criminally investigate or prosecute any alcohol or drug abuse patient.[facility] CenterIn the event this information is protected by the Federal Confidentiality of Alcohol and Drug Abuse Patient Records regulations: The Federal rules restrict any use of the information to criminally investigate or prosecute any alcohol or drug abuse patient.[facility] CenterIn the event this information is protected by the Federal Confidentiality of Alcohol and Drug Abuse Patient Records regulations: The Federal rules restrict any use of the information to criminally investigate or prosecute any alcohol or drug abuse patient.[facility] CenterIn the event this information is protected by the Federal Confidentiality of Alcohol and Drug Abuse Patient Records regulations: The Federal rules restrict any use of the information to criminally investigate or prosecute any alcohol or drug abuse patient.[facility] CenterIn the event this information is protected by the Federal Confidentiality of Alcohol and Drug Abuse Patient Records regulations: The Federal rules restrict any use of the information to criminally investigate or prosecute any alcohol or drug abuse patient.[facility] CenterIn the event this information is protected by the Federal Confidentiality of Alcohol and Drug Abuse Patient Records regulations: The Federal rules restrict any use of the information to criminally investigate or prosecute any alcohol or drug abuse patient.[facility] CenterIn the event this information is protected by the Federal Confidentiality of Alcohol and Drug Abuse Patient Records regulations: The Federal rules restrict any use of the information to criminally investigate or prosecute any alcohol or drug abuse patient.[facility] CenterIn the event this information is protected by the Federal Confidentiality of Alcohol and Drug Abuse Patient Records regulations: The Federal rules restrict any use of the information to criminally investigate or prosecute any alcohol or drug abuse patient.[facility] CenterIn the event this information is protected by the Federal Confidentiality of Alcohol and Drug Abuse Patient Records regulations: The Federal rules restrict any use of the information to criminally investigate or prosecute any alcohol or drug abuse patient.[facility] CenterIn the event this information is protected by the Federal Confidentiality of Alcohol and Drug Abuse Patient Records regulations: The Federal rules restrict any use of the information to criminally investigate or prosecute any alcohol or drug abuse patient.[facility] CenterIn the event this information is protected by the Federal Confidentiality of Alcohol and Drug Abuse Patient Records regulations: The Federal rules restrict any use of the information to criminally investigate or prosecute any alcohol or drug abuse patient.[facility] CenterIn the event this information is protected by the Federal Confidentiality of Alcohol and Drug Abuse Patient Records regulations: The Federal rules restrict any use of the information to criminally investigate or prosecute any alcohol or drug abuse patient.[facility] CenterIn the event this information is protected by the Federal Confidentiality of Alcohol and Drug Abuse Patient Records regulations: The Federal rules restrict any use of the information to criminally investigate or prosecute any alcohol or drug abuse patient.[facility] CenterIn the event this information is protected by the Federal Confidentiality of Alcohol and Drug Abuse Patient Records regulations: The Federal rules restrict any use of the information to criminally investigate or prosecute any alcohol or drug abuse patient.[facility] CenterIn the event this information is protected by the Federal Confidentiality of Alcohol and Drug Abuse Patient Records regulations: The Federal rules restrict any use of the information to criminally investigate or prosecute any alcohol or drug abuse patient.[facility] Reason for Visit (unrecogniz ed section and content) Specialty Diagnoses / Procedures Referred By Contac t Referred To Contact Internal Medicine / INTERNAL MEDICINE Diagnoses Follow-up exam 3 month follow up Procedures OFFICE/OUTPATIENT ESTABLISHED HIGH MDM 40-54 MIN 4C EST Brandon Shaver MD [address] [place] [address] Brandon Shaver MD [address] [place] [address] Referral ID Status Reason Start Date Expiration Date V isits Requested Visits Authorized [id number] Authorized 09/24/2021 05/11/2022 99 99 Reason Comments Results Reason Comments Consult Specialty Diagnoses / Procedures Referred By Contac t 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 Diagnoses CONCERN - PROLAPSE Procedures OFFICE/OUTPATIENT ESTABLISHED LOW MDM 20-29 MIN EST WHI PATIENT Self Lindsay Gongora MD [address] [place] [address] Referral ID Status Reason Start Date Expiration Date Visits Re quested Visits Authorized [id number] Closed 09/21/2021 05/11/2022 1 1 Reason Comments Patient Update Reason Comments Preparations For Surgery Reason Comments Consult Specialty Diagnoses / Procedures Referred By Contact Referred To Contact Anesthesiology / ANESTHESIOLOGY Diagnoses 01/01 no surgery scheduled main Procedures [place] [address] [place] [address] 1, [facility] Gina [address] [place] [address] Referral ID Status Reason Start Date Expiration Date Visits Re quested Visits Authorized [id number] Closed 12/19/2021 03/19/2022 1 1 Reason Comments Pre-Op Visit Specialty Diagnoses / Procedures Referred By Contac t Referred To Contact Gynecology / 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 Diagnoses pre op teaching Procedures PHYS/QHP TELEPHONE EVALUATION 11-20 MIN TELEVISIT Qiana Pizarro MD [address] [place] [address] Irma Adair APRN.TYPE CASTER [address] [place] [address] x2 Referral ID Status Reason Start Date Expiration Date V isits Requested Visits Authorized [id number] Authorized 12/24/2021 05/11/2022 99 99 Reason Comments Radiology US Specialty Diagnoses / Procedures Referred By Contac t Referred To Contact US IMAGING Diagnoses 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 Cystocele, midline Rectocele Incomplete uterovaginal prolapse Preoperative examination Overactive bladder Procedures US FEMALE PELVIS TRANSVAG US TRANSVAGINAL Qiana Pizarro MD [address] [place] [address] [facility] Referral ID Status Reason Start Date Expiration Date V isits Requested Visits Authorized [id number] Closed Auto-Generate d Referral 12/04/2021 01/03/2023 1 1 Reason Comments Patient Update Surgery instructions Reason Comments Vaginal Problem Specialty Diagnoses / Procedures Referred By Contac t 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 / 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 Diagnoses pre op Procedures PHYS/QHP TELEPHONE EVALUATION 5-10 MIN PHYS/QHP TELEPHONE EVALUATION 11-20 MIN PHYS/QHP TELEPHONE EVALUATION 21-30 MIN PROVIDER SPECIALTY PHONE CALL MD Juarez Norton Shannon, MD [address] [place] [address] Referral ID Status Reason Start Date Expiration Date Visits Re quested Visits Authorized [id number] Closed 12/07/2021 05/11/2022 1 1 Reason Comments Post Op Pain Reason Onset Date Comments F/U 3 months Immunizations 01/21/2022 Flu vaccination Reason Comments Future Appointment Reason Comments Sore Throat Specialty Diagnoses / Procedures Referred By Contac t Referred To Contact Internal Medicine / INTERNAL MEDICINE Diagnoses sore throat x 3 days Procedures 4C EST Self Brandon Sahver MD [address] [place] [address] Referral ID Status Reason Start Date Expiration Date Visits Re quested Visits Authorized [id number] Closed 02/22/2022 05/23/2022 1 1 Reason Comments Recheck Follow up Specialty Diagnoses / Procedures Referred By Contac t Referred To Contact Internal Medicine / INTERNAL MEDICINE Diagnoses Follow up pneumonia Procedures 4C Brandon Etienne MD [address] [place] [address] Gwendolyn Ballard APRN.TYPE CASTER [address] [place] [address] Referral ID Status Reason Start Date Expiration Date Visits Re quested Visits Authorized [id number] Closed 03/18/2022 06/16/2022 1 1 Reason Comments [...] 4C EST HOSP/ER FU Self Hodan Stevens APRN.TYPE CASTER [address] [place] [address] Referral ID Status Reason Start Date Expiration Date Visits Re quested Visits Authorized [id number] Closed 04/29/2022 05/11/2022 1 1 Reason Comments Results Reason Comments fax referral to outside Reason Comments Recheck Follow up, review re sults Specialty Diagnoses / Procedures Referred By Contac t Referred To Contact Internal Medicine / INTERNAL MEDICINE Diagnoses Follow-up exam US follow up Procedures OFFICE/OUTPATIENT ESTABLISHED MOD MDM 30-39 MIN 4C Brandon Etienne MD [address] [place] [address] Gwendolyn Ballard APRN.TYPE CASTER [address] [place] [address] Referral ID Status Reason Start Date Expiration Date Visits Re quested Visits Authorized [id number] Closed 05/09/2022 05/11/2023 1 1 Reason Comments Patient Update Reason Comments Recheck Follow up, review la bs Reason Comments Consult Hiatal hernia Specialty Diagnoses / Procedures Referred By Dimitri t Referred To Contact General Surgery / GENERAL SURGERY Diagnoses Hiatal hernia with GERD without esophagitis Procedures CONSULT TO GENERAL SURGERY OFFICE/OUTPATIENT [facility] MDM 60-74 MINUTES Gwendolyn Ballard APRN.TYPE CASTER [address] [place] [address] [facility] [address] [place] [address] Referral ID Status Reason Start Date Expiration Date V isits Requested Visits Authorized [id number] Closed PCP Requested Referral 05/17/2022 05/17/2023 1 1 Reason Comments 2 week follow-up Specialty Diagnoses / Procedures Referred By Dimitri larios Referred To Contact Internal Medicine / INTERNAL MEDICINE Diagnoses 2 week follow up Procedures OFFICE/OUTPATIENT [facility] MDM 30-39 MIN 4C Brandon Nam MD [address] [place] [address] Referral ID Status Reason Start Date Expiration Date Visits Re quested Visits Authorized [id number] Closed 06/08/2022 05/11/2023 1 1 Reason Comments Follow Up review results, need s a letter for work needs to be specific and elevated blood pressure Reason Comments FMLA Paperwork Reason Comments waitlist 06/11/2022 colon asc' Reason Comments Follow Up Hernia repair Reason Comments Referral Request Reason Comments Neurologic Problem Reason Comments Recheck 2 week CVA also 3 mo nth follow up BP Reason Comments New Patient Reason Comments Cerebrovascular Accident She has her gra nddaughter with her today. She had a stroke in July. Left side weakness, memory and balance. 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 MRI [facility]. Specialty Diagnoses / Procedures Referred By Contac t Referred To Contact Neurology Diagnoses Cerebrovascular accident (CVA), unspecified mechanism (HCC) Gwendolyn Ballard CNP [address] [place] [address] [facility] Referral ID Status Reason Start Date Expiration Date V isits Requested Visits Authorized [id number] Pending Review 08/19/2022 08/19/2023 1 1 Reason Onset Date Comments Medication Refill 09/13/2022 Reason Comments Established Patient Reason Comments Recheck 2 month Reason Comments Recheck Follow up, fever Reason Comments Hospital F/U SOB, hospital follow up-pneumonia, CHF Reason Comments Follow Up 1 week follow up- in a fib, dizziness, leg swelling, SOB, fatigue Reason Comments Spirometry Specialty Diagnoses / Procedures Referred By Contac t Referred To Contact PULMONARY MEDICINE Diagnoses COPD (chronic obstructive pulmonary disease) ([facility]) Procedures OFFICE CONSULTATION NEW/ESTAB PATIENT 15 MIN OlderGwendolyn APRN.ANITHA [address] [place] [address] [facility] [address] [place] [address] Referral ID Status Reason Start Date Expiration Date V isits Requested Visits Authorized [id number] Closed OON/Self Pay Override 01/27/2023 05/11/2023 1 1 Reason Comments New Patient COPD Specialty Diagnoses / Procedures Referred By Contac t Referred To Contact PULMONARY MEDICINE Diagnoses COPD (chronic obstructive pulmonary disease) ([facility]) Procedures OFFICE CONSULTATION NEW/ESTAB PATIENT 15 MIN Gwendolyn Ballard APRN.TYPE CASTER [address] [place] [address] [facility] [address] [place] [address] Reason Comments Hospital F/U Reason Comments Recheck Follow up Reason Comments Follow Up Specialty Diagnoses / Procedures Referred By Contac t Referred To Contact INTERNAL MEDICINE Diagnoses follow up Procedures OFFICE CONSULTATION NEW/ESTAB PATIENT 15 MIN Phil Oden MD [address] [place] [address] [facility] [address] [place] [address] Referral ID Status Reason Start Date Expiration Date Visits Requested Visits Authorized [id number] Pending Review OON/Self Pay Override 01/23/2023 07/22/2023 1 1 Reason Comments Medication Clarification Reason Comments Follow Up return to work [place] and needs handicap placard Specialty Diagnoses / Procedures [facility] Referred To Contact FAMILY MEDICINE Diagnoses f/u Procedures f/u Brandon Shaver MD [address] [place] [address] [facility] [address] [place] [address] Referral ID Status Reason Start Date Expiration Date Visits Requested Visits Authorized [id number] Pending Review OON/Self Pay Override 02/10/2023 08/09/2023 [address] Specialty Diagnoses / Procedures [facility] Ref[facility] To Contact CT IMAGING Diagnoses Hiatal hernia with GERD without esophagitis Personal history of colonic polyps Procedures CT ABD/PEL WO IVCON CT ABD & PELVIS W/O CONTRAST Katheryn Stokes MD [address] [place] [address] [place] [address] Referral ID Status Reason Start Date Expiration Date V isits Requested Visits Authorized [id number] Closed Auto-Generate d Referral 05/24/2022 05/11/2023 2 2 Specialty Diagnoses / Procedures [facility] Ref[facility] To Contact CT IMAGING Diagnoses Left lower quadrant abdominal pain Right lower quadrant abdominal tenderness without rebound tenderness Bowel habit changes Blood in stool Procedures CT ABD/PEL W IVCON CT ABD & PELVIS W/CONTRAST Gwendolyn Ballard APRN.TYPE CASTER [address] [place] [address] [place] [address] Referral ID Status Reason Start Date Expiration Date V isits Requested Visits Authorized [id number] Closed Auto-Generate d Referral 12/26/2022 01/25/2023 1 1 Reason Comments Covid19 Concern Reason Comments Results Nocturnal oximetry Reason Onset Date Comments Refill Request 03/23/2023 Reason Comments Refill Request Reason Comments Recheck 3 month follow up Care Teams (unrecognized sec tion and content) Buncher Hand Relationship Specialty Start Date End Date Brandon Shaver MD [address] [facility] [place] [address] PCP - General Internal Medicine 09/25/15 Fred, [place] S [facility] Useful Or [facility] Cardiology 03/19/13 Buncher Hand Relationship Specialty Start Date End Date Brandon Shaver MD [address] [facility] [place] [address] PCP - General Internal Medicine 09/25/15 Fred, [place] S [facility] Useful Or [facility] Cardiology 03/19/13 Buncher Hand Relationship Specialty Start Date End Date Brandon Shaver MD [address] [facility] [place] [address] PCP - General Internal Medicine 09/25/15 Fred, [place] [facility] Useful Or [facility] Cardiology 03/19/13 Buncher Hand Relationship Specialty Start Date End Date Brandon Shaver MD [address] [facility] [place] [address] PCP - General Internal Medicine 09/25/15 Fred, [place] [facility] Useful Or [facility] Cardiology 03/19/13 Buncher Hand Relationship Specialty Start Date End Date Brandon Shaver MD [address] [facility] [place] [address] PCP - General Internal Medicine 09/25/15 Fred, [place] [facility] Useful Or [facility] Cardiology 03/19/13 Buncher Hand Relationship Specialty Start Date End Date Brandon Shaver MD [address] [facility] [place] [address] PCP - General Internal Medicine 09/25/15 Fred, [place] [facility] Useful Or [facility] Cardiology 03/19/13 Buncher Hand Relationship Specialty Start Date End Date Brandon Shaver MD [address] [facility] [place] [address] PCP - General Internal Medicine 09/25/15 Fred, [place] [facility] Useful Or [facility] Cardiology 03/19/13 Buncher Hand Relationship Specialty Start Date End Date Brandon Shaver MD [address] [facility] [place] [address] PCP - General Internal Medicine 09/25/15 Fred, [place] S Specialty Bar Useful Or [facility] Cardiology 03/19/13 Buncher Hand Relationship Specialty Start Date End Date Brandon Shaver MD [address] [facility] [place] [address] PCP - General Internal Medicine 09/25/15 Fred, [place] S Specialty Bar Useful Or [facility]er Cardiology 03/19/13 Buncher Hand Relationship Specialty Start Date End Date Brandon Shaver MD [address] [facility] [place] [address] PCP - General Internal Medicine 09/25/15 Fred, [place] S Specialty Bar Useful Or [facility]er Cardiology 03/19/13 Buncher Hand Relationship Specialty Start Date End Date Brandon Shaver MD [address] [facility] [place] [address] PCP - General Internal Medicine 09/25/15 Fred, [place] S Specialty Bar Useful Or [facility]er Cardiology 03/19/13 Buncher Hand Relationship Specialty Start Date End Date Brandon Shaver MD [address] [facility] [place] [address] PCP - General Internal Medicine 09/25/15 Fred, [place] [facility] Useful Or [facility] Cardiology 03/19/13 Buncher Hand Relationship Specialty Start Date End Date Brandon Shaver MD [address] [facility] [place] [address] PCP - General Internal Medicine 09/25/15 Fred, [place] [facility] Useful Or [facility]er Cardiology 03/19/13 Buncher Hand Relationship Specialty Start Date End Date Brandon Shaver MD [address] [facility] [place] [address] PCP - General Internal Medicine 09/25/15 Fred, [place] S Specialty Bar Useful Or [facility]er Cardiology 03/19/13 Buncher Hand Relationship Specialty Start Date End Date Brandon Shaver MD [address] [facility] [place] [address] PCP - General Internal Medicine 09/25/15 Fred, [place] [facility] Useful Or [facility]er Cardiology 03/19/13 Buncher Hand Relationship Specialty Start Date End Date Brandon Shaver MD [address] [facility] [place] [address] PCP - General Internal Medicine 09/25/15 Fred, [place] S Specialty Bar Useful Or [facility]er Cardiology 03/19/13 Buncher Hand Relationship Specialty Start Date End Date Brandon Shaver MD [address] [facility] [place] [address] PCP - General Internal Medicine 09/25/15 Fred, [place] S Specialty Bar Useful Or [facility]er Cardiology 03/19/13 Buncher Hand Relationship Specialty Start Date End Date Brandon Shaver MD [address] [facility] [place] [address] PCP - General Internal Medicine 09/25/15 Fred, [place] [facility] Useful Or [facility]er Cardiology 03/19/13 Buncher Hand Relationship Specialty Start Date End Date Brandon Shaver MD [address] [facility] [place] [address] PCP - General Internal Medicine 09/25/15 Fred, [place] S Specialty Bar Useful Or [facility]usser Cardiology 03/19/13 Buncher Hand Relationship Specialty Start Date End Date Brandon Shaver MD [address] [facility] [place] [address] PCP - General Internal Medicine 09/25/15 Rfed, [place] S Specialty Bar Useful Or Busser Cardiology 03/19/13 Buncher Hand Relationship Specialty Start Date End Date Brandon Shaver MD [address] [facility] [place] [address] PCP - General Internal Medicine 09/25/15 Fred, [place] [facility] Specialty Bar Useful Or Busser Cardiology 03/19/13 Buncher Hand Relationship Specialty Start Date End Date Brandon Shaver MD [address] [facility] [place] [address] PCP - General Internal Medicine 09/25/15 Fred, [place] S Specialty Bar Useful Or Busser Cardiology 03/19/13 Buncher Hand Relationship Specialty Start Date End Date Brandon Shaver MD [address] [facility] [place] [address] PCP - General Internal Medicine 09/25/15 Fred, [place] S Specialty Bar Useful Or Busser Cardiology 03/19/13 Buncher Hand Relationship Specialty Start Date End Date Brandon Shaver MD [address] [facility] [place] [address] PCP - General Internal Medicine 09/25/15 Fred, [place] S Specialty Bar Useful [facility] 03/19/13 Buncher Hand Relationship Specialty Start Date End Date Brandon Shaver MD [address] [facility] [place] [address] PCP - General Internal Medicine 09/25/15 Fred, Maxim S Specialty Bar Useful [facility] 03/19/13 Buncher Hand Relationship Specialty Start Date End Date Brandon Shaver MD [address] [address] [place] [address] PCP - General Internal Medicine 08/19/22 Buncher Hand Relationship Specialty Start Date End Date Brandon Shaver MD [address] [facility] [place] [address] PCP - General Internal Medicine 09/25/15 Fred, Maxim S Specialty Bar Useful [facility] 03/19/13 Buncher Hand Relationship Specialty Start Date End Date Brandon Shaver MD [address] [address] [place] [address] PCP - General Internal Medicine 08/19/22 Buncher Hand Relationship Specialty Start Date End Date Brandon Shaver MD [address] [address] [place] [address] PCP - General Internal Medicine 08/19/22 Buncher Hand Relationship Specialty Start Date End Date Brandon Shaver MD [address] [facility] [place] [address] PCP - General Internal Medicine 09/25/15 Fred, [place] S Specialty Bar Useful [facility] 03/19/13 Buncher Hand Relationship Specialty Start Date End Date Brandon Shaver MD [address] [facility] [place] [address] PCP - General Internal Medicine 09/25/15 Fred, [place] S Specialty Bar Useful [facility] 03/19/13 Buncher Hand Relationship Specialty Start Date End Date Brandon Shaver MD [address] [facility] [place] [address] PCP - General Internal Medicine 09/25/15 Fred, [place] S Specialty Bar Useful [facility] 03/19/13 Buncher Hand Relationship Specialty Start Date End Date Brandon Shaver MD [address] [facility] [place] [address] PCP - General Internal Medicine 09/25/15 Fred, Maxim S Specialty Bar Useful [facility] 03/19/13 Buncher Hand Relationship Specialty Start Date End Date Brandon Shaver MD [address] [facility] [place] [address] PCP - General Internal Medicine 09/25/15 FredStephen del rioril S Specialty Bar Useful [facility] 03/19/13 Buncher Hand Relationship Specialty Start Date End Date Brandon Shaver MD [address] [facility] [place] [address] PCP - General Internal Medicine 09/25/15 FredStephen del rioril S Specialty Bar Useful [facility] 03/19/13 Buncher Hand Relationship Specialty Start Date End Date Brandon Shaver MD [address] [place] [address] PCP - General Internal Medicine 09/25/15 FredStephen del rioril S Specialty Bar Useful [facility] 03/19/13 Buncher Hand Relationship Specialty Start Date End Date Brandon Shaver MD [address] [place] [address] PCP - General Internal Medicine 09/25/15 FredStephen del rioril S Specialty Bar Useful [facility] 03/19/13 Buncher Hand Relationship Specialty Start Date End Date Brandon Shaver MD [address] [place] [address] PCP - General Internal Medicine 09/25/15 FredStephen del rioril S Specialty Bar Useful [facility] 03/19/13 Buncher Hand Relationship Specialty Start Date End Date Brandon Shaver MD [address] [facility] [place] [address] PCP - General Internal Medicine 09/25/15 Maxim Ibarra Specialty Bar Useful [facility] 03/19/13 Buncher Hand Relationship Specialty Start Date End Date Brandon Shaver MD [address] [facility] [place] [place] [address] PCP - General Internal Medicine 09/25/15 Maxim Ibarra Specialty Bar Useful [facility] 03/19/13 Buncher Hand Relationship Specialty Start Date End Date Brandon Shaver MD [address] [facility] [place] [place] [address] PCP - General Internal Medicine 09/25/15 Maxim Ibarra Specialty Bar Useful [facility] 03/19/13 Buncher Hand Relationship Specialty Start Date End Date Brandon Shaver MD [address] [facility] [place] [place] [address] PCP - General Internal Medicine 09/25/15 Maxim Ibarra MD Specialty Bar Useful [facility] 03/19/13 Buncher Hand Relationship Specialty Start Date End Date Brandon Shaver MD [address] [facility] [place] [place] [address] PCP - General Internal Medicine 09/25/15 Maxim Ibarra MD Specialty Bar Useful [facility] 03/19/13 Buncher Hand Relationship Specialty Start Date End Date Brandon Shaver MD [address] [facility] [place] [address] PCP - General Internal Medicine 09/25/15 Maxim Ibarra MD Specialty Bar Useful [facility] 03/19/13 Buncher Hand Relationship Specialty Start Date End Date Brandon Shaver MD [address] [facility] [place] [address] PCP - General Internal Medicine 09/25/15 Maxim Ibarra MD Specialty Bar Useful [facility] 03/19/13 Buncher Hand Relationship Specialty Start Date End Date Brandon Shaver MD [address] [facility] [place] [address] PCP - General Internal Medicine 09/25/15 Maxim Ibarra MD Specialty Bar Useful [facility] 03/19/13 Buncher Hand Relationship Specialty Start Date End Date Brandon Shaver MD [address] [facility] [place] [address] PCP - General Internal Medicine 09/25/15 Maxim Ibarra MD Specialty Bar Useful [facility] 03/19/13 Buncher Hand Relationship Specialty Start Date End Date Brandon Shaver MD [address] [facility] [place] [address] PCP - General Internal Medicine 09/25/15 Maxim Ibarra MD Specialty Bar Useful [facility] 03/19/13 Buncher Hand Relationship Specialty Start Date End Date Brandon Shaver MD [address] [facility] [place] [address] PCP - General Internal Medicine 09/25/15 Maxim Ibarra MD Specialty Bar Useful [facility] 03/19/13 Buncher Hand Relationship Specialty Start Date End Date Brandon Shaver MD [address] [facility] [place] [address] PCP - General Internal Medicine 09/25/15 Maxim Ibarra MD Specialty Bar Useful [facility] 03/19/13 Buncher Hand Relationship Specialty Start Date End Date Brandon Shaver MD [address] [facility] [place] [address] PCP - General Internal Medicine 09/25/15 Maxim Ibarra MD Specialty Bar Useful [facility] 03/19/13 Buncher Hand Relationship Specialty Start Date End Date Brandon Shaver MD [address] [place] [address] PCP - General Internal Medicine 09/25/15 Maxim Ibarra MD Specialty Bar Useful [facility] 03/19/13 Buncher Hand Relationship Specialty Start Date End Date Brandon Shaver MD [address] [place] [address] PCP - General Internal Medicine 09/25/15 Maxim Ibarra MD Specialty Bar Useful [facility] 03/19/13 INFORMATION SOURCE (unrecogn ized section and content) DATE CREATED AUTHOR AUTHOR'S ORGANIZ ATION 07/01/2023 [facility] FOR RECORDS PERTAINING TO PATIENTS WHO [...] BE BASED ON THE PRIMARY CLINICAL RECORDS. [employer] provides no warranty or guarantee of the accuracy or completeness of information in this document.
--- NOTE | 2023-07-04 12:26 | PRO.PCM_ITS ---
Procedure Report Date of Procedure: 07/04/23 DC cardioversion. 78-year-old lady with a history of chronic persistent atrial fibrillation. Patient has been on therapeutic anticoagulation for at least 3 to 4 weeks. Patient came in for DC cardioversion. Informed consent was obtained. Anterior- posterior pads were applied. The patient was seen by Dr. Montes of the critical care division. 40 mg of intravenous propofol was given and 200 J of synchronized biphasic DC cardioversion energy were applied. Patient reverted to sinus rhythm. Patient tolerated the procedure well. Conclusion: Successful DC cardioversion from atrial fibrillation to sinus rhythm. Follow-up as per office protocol.
--- NOTE | 2023-07-04 12:49 | PCM.OP.PRO ---
Procedure Report Date of Procedure: 07/04/23 CONSCIOUS SEDATION REPORT DATE OF SERVICE: July 04, 2023 BRIEF HISTORY OF PRESENT ILLNESS: The patient is a 78-year-old female who presented to [facility] for elective outpatient cardioversion due to underlying atrial fibrillation. The patient denied any prior anesthetic complications. She does have a history of known COPD and is currently followed by Dr. Sylvia Montes of pulmonary medicine at [facility]. She has never been diagnosed with obstructive sleep apnea. She is systemically anticoagulated on Eliquis. Her last surface echocardiogram demonstrated an ejection fraction of approximately 60%. PHYSICAL EXAMINATION: VITAL SIGNS: Reviewed and were acceptable. GENERAL: The patient is a female, in no apparent distress, speaking in full sentences. HEENT: Normocephalic, atraumatic. Mucous membranes are moist and pink. Good mouth opening noted. Trachea is midline. CHEST: S1, S2 irregularly irregular. No murmurs, rubs or gallops were noted. LUNGS: Clear to auscultation bilaterally without appreciable wheezes, rales or rhonchi. ABDOMEN: Soft, nontender, nondistended. Positive bowel sounds. EXTREMITIES: There is no clubbing, cyanosis or edema. ASA Class: II DESCRIPTION OF PROCEDURE: After confirmation of informed consent, the patient's anesthesia plan was reviewed in detail. Propofol was chosen. Risks and benefits were reviewed and the patient agreed to proceed. At 1220, the patient was given 40 mg of propofol. The patient achieved an appropriate level of sedation and was given a 200 joule synchronized cardioversion by Dr. Ibarra at the bedside. This was successful in achieving normal sinus rhythm. The patient was monitored until 1235, at which time she reached her baseline mental status and function. The patient tolerated the procedure well. COMPLICATIONS: None ESTIMATED BLOOD LOSS: None RECOMMENDATIONS: Okay to recover in usual fashion. Procedures Pulmonary CF Procedures Pulmonary: 55129 Con Sedation
== END 2023-07-04 13:25 | disposition home or self-care (01) ==
LOC: CLSP 10:56
PROVIDERS: PCP Internal Medicine; Referring Provider Internal Medicine Cardiovascular Disease; Visit Provider Internal Medicine Cardiovascular Disease
DX: I48.19 Other persistent atrial fibrillation (principal); I11.0 Hypertensive heart disease with heart failure; I50.32 Chronic diastolic (congestive) heart failure; I43 Cardiomyopathy in diseases classified elsewhere; K21.9 Gastro-esophageal reflux disease without esophagitis; Z87.891 Personal history of nicotine dependence; Z79.01 Long term (current) use of anticoagulants; Z79.899 Other long term (current) drug therapy; Z86.73 Personal history of transient ischemic attack (TIA), and cerebral infarction without residual deficits
CPT/HCPCS: 92960; 93005; J7040

== ENCOUNTER 2023-09-05 16:47 | Emergency (ER) | payer OTHER, MEDICARE, SELFPAY ==
[2023-09-05 16:48] VITALS: BP 143/96; PULSE 93; RESP 14; TEMP 35.9; O2SAT 96
--- NOTE | 2023-09-05 17:06 | CT_ITS ---
EXAM: CT CERVICAL SPINE WITHOUT INTRAVENOUS CONTRAST CLINICAL INDICATION: trauma TECHNIQUE: Helically acquired images were obtained of the cervical spine without intravenous contrast. 2D reformatted images were reviewed. This CT exam was performed using one or more of the following dose reduction techniques: automated exposure control, adjustment of the mA and/or kV according to patient size, and/or use of iterative reconstruction technique. COMPARISON: No relevant prior studies available. FINDINGS: VERTEBRAE: There is mild anterior spondylolisthesis of C6 on C7 of 3 mm. No fracture. No discrete lytic or blastic abnormality. Normal craniocervical junction and cervicothoracic junction. DISCS/SPINAL CANAL/NEURAL FORAMINA: There is hardware from an anterior fusion extending from C3 through C5. There is disc space narrowing at C2-3, C5-6-7. SOFT TISSUES: Unremarkable. No prevertebral soft tissue swelling. LYMPH NODES: Unremarkable. No cervical adenopathy. LUNG APICES: Unremarkable as visualized. Clear. CT/Spine Cervical without Contras IMPRESSION: 1. No acute osseous abnormalities of the cervical spine. 2. Hardware from anterior fusion of C3-C5 in stable position. 3. Degenerative changes with disc space narrowing. There is 3 mm anterior listhesis of C6 on C7. Electronically Signed: Heraclio Luna MD at 18:32 EDT ,
--- NOTE | 2023-09-05 17:06 | CT_ITS ---
EXAM: CT HEAD WITHOUT INTRAVENOUS CONTRAST CLINICAL INDICATION: injury TECHNIQUE: Multiple axial images were obtained of the head without intravenous contrast. This CT exam was performed using one or more of the following dose reduction techniques: automated exposure control, adjustment of the mA and/or kV according to patient size, and/or use of iterative reconstruction technique. COMPARISON: No relevant prior studies available. FINDINGS: BRAIN AND EXTRA-AXIAL SPACES: Unremarkable. No intra- or extra-axial hemorrhage. No evidence of acute infarct. No intracranial mass or mass effect. There is preservation of the harrell/white matter interface. Posterior fossa structures are unremarkable. Ventricles are appropriate for age. No hydrocephalus. Basal cisterns are patent. BONES/JOINTS: Unremarkable. No discrete lytic or blastic abnormalities. SOFT TISSUES: There is a small amount of gas in the soft tissues overlying the left frontal bone. SINUSES: Unremarkable as visualized. Clear. MASTOID AIR CELLS: Unremarkable. Clear. ORBITS: Visualized globes, extraocular muscles, optic nerves and retrobulbar fat appear unremarkable. CT/Brain/Head without Contrast IMPRESSION: No acute findings in the head/brain. Electronically Signed: Heraclio Luna MD at 18:22 EDT ,
--- NOTE | 2023-09-05 17:08 | ED.VIS.FALL ---
HPI HPI - Fall History of Present Illness Chief Complaint: Fall Informant: patient Occured/Mechanism Occurred: Today Narrative Narrative: Patient presents secondary to fall. She states she was carrying some laundry up her steps when she fell forward. She is unsure if she lost consciousness. She denies headache but has slight neck pain. She does have a skin tear on her right arm. Patient is currently on Eliquis for history of A-fib. [facility] Medical History (Updated 09/05/23 @ 18:[address] Mine Shaffer MD) Abnormal bruising Acute stroke due to ischemia Arthritis Atrial fibrillation Moses's esophagus Calculus of kidney Cancer Cardiomyopathy in other diseases classified elsewhere Carpal tunnel syndrome Chest pain Chronic diastolic (congestive) heart failure Chronic neck and back pain Diarrhea Difficulty balancing when standing GERD (gastroesophageal reflux disease) Hamstring muscle strain Heart disease History of DVT (deep vein thrombosis) Hypertension Left hip pain group home (current) use of anticoagulants Non-rheumatic tricuspid valve insufficiency Nonrheumatic aortic valve stenosis Osteoarthritis of right hip Panlobular emphysema Paroxysmal atrial fibrillation Right hip pain Rotator cuff tear Scoliosis of cervical spine Shoulder pain SOB (shortness of breath) Tendonitis of shoulder, right Tubular adenoma of colon URI (upper respiratory infection) Home Medications multivitamin with folic acid 400 mcg tablet 1 tab PO DAILY supplement 03/15/13 [History Last Taken 10/31/18 07:00] calcium carbonate 500 mg PO DAILY Check with primary doctor 06/25/21 [History Last Taken Unknown] cyclobenzaprine 10 mg tablet 10 mg PO HS PRN muscle spasm 07/25/22 [History Last Taken Unknown] famotidine 20 mg tablet 20 mg PO BID Check with primary doctor 07/25/22 [History Last Taken Unknown] sucralfate 100 mg/mL oral suspension 10 ml PO ACHS 12/31/22 [History Last Taken Unknown] furosemide 40 mg tablet 40 mg PO .COMPLEX #180 tabs 01/27/23 [Rx Last Taken Unknown] potassium chloride 20 mEq tablet,extended release(part/cryst) 20 meq PO .COMPLEX #180 tabs 01/27/23 [Rx Last Taken Unknown] empagliflozin 10 mg tablet (Jardiance) 10 mg PO DAILY #90 tabs 02/04/23 [Rx Last Taken Unknown] flecainide 100 mg tablet 100 mg PO Q12H #180 tabs 04/11/23 [Rx Last Taken 07/04/23] apixaban 5 mg tablet 5 mg PO BID #180 tabs 06/16/23 [Rx Last Taken 07/04/23] metoprolol succinate 50 mg tablet,extended release 24 hr 50 mg PO BID #180 tabs 07/17/23 [Rx Last Taken Unknown] diclofenac sodium 75 mg tablet,delayed release 75 mg PO Q OTHER DAY 08/11/23 [History Last Taken Unknown] fluticasone fur. 100 mcg-umeclid 62.5 mcg-vilant 25 mcg inhalat.powder (Trelegy Ellipta) 1 ea inhalation QDAY 08/11/23 [History Last Taken Unknown] fluticasone propionate 50 mcg/actuation nasal spray,suspension 2 spray intranasal QDAY PRN 08/11/23 [History Last Taken Unknown] melatonin 5 mg tablet 10 mg PO HS PRN 08/11/23 [History Last Taken Unknown] Allergy/AdvReac Type Severity Reaction Status Date / Time etodolac Allergy Intermediate Other Verified 09/05/23 16:51 diltiazem HCl [From Cardizem] Allergy Swelling Verified 09/05/23 16:51 of face and neck naproxen Allergy Swelling Verified 09/05/23 16:51 (whole body) prednisone Allergy Other Verified 09/05/23 16:51 amiodarone AdvReac Severe Severe Verified 09/05/23 16:51 dyspnea after taking PO Amiodarone adhesive AdvReac Rash Verified 09/05/23 16:51 albuterol AdvReac Other Verified 09/05/23 16:51 codeine AdvReac Vomiting Verified 09/05/23 16:51 hydrocodone bitartrate AdvReac Vomiting Verified 09/05/23 16:51 [From Vicodin] morphine AdvReac Vomiting Verified 09/05/23 16:51 Family History Sister Afib Father CAD (coronary artery disease) Brother CVA (cerebral vascular accident) Mother No problems noted. Sister No problems noted. Brother Wilsons disease Brother Wilsons disease Surgical History H/O hernia repair H/O neck surgery History of cardioversion (07/04/23) History of left heart catheterization (03/15/13) History of radiofrequency ablation procedure for cardiac arrhythmia (07/27/15) Hx of cholecystectomy Hx of fusion of cervical spine ovarian surgery Social History Smoking Status: Former smoker alcohol intake: never substance use type: does not use caffeine: Yes Type: coffee Number of servings: 1 what type of physical activity do you participate in: walking frequency: daily seatbelt use: always do you feel safe at home: Yes ROS ROS ED Constitutional Constitutional ED: Denies chills or fever(s) Eyes Eyes: Denies discharge from eye(s) ENT ENT ED: Denies discharge from eye(s), rhinorrhea or sore throat Cardiovascular Cardiovascular: Reports palpitations; Denies chest pain Respiratory/Chest Respiratory/Chest: Denies cough or dyspnea Gastrointestinal Gastrointestinal: Denies abdominal pain, nausea or vomiting Genitourinary Genitourinary ED: Denies dysuria Musculoskeletal Musculoskeletal: Reports extremity pain and neck pain; Denies back pain Integumentary Reports other Details: Skin tear right arm ; Denies Abrasions or rash Neurologic Neurologic: Denies headache(s) or weakness Psychiatric Psychiatric: Denies anxiety or depression Endocrine Endocrinology: Denies polydipsia or polyuria Allergic/Immunologic Allergic/Immunologic ED: Denies lip swelling or urticaria EXAM Physical Exam Const Vital Signs: 09/05/23 16:48 09/05/23 17:23 Temperature 96.6 F L Temperature Source Temporal Pulse Rate 93 Respiratory Rate 14 Respiratory Effort Normal Respiratory Depth Normal Respiratory Pattern Normal Blood Pressure 143/96 H Blood Pressure Mean 111 Pulse Ox 96 Oxygen Delivery Method Room Air Room Air Positive well nourished and well developed General Appearance ED: well developed HEENT Reports normocephalic HEENT Narrative: Linear erythematous melissa noted across the left forehead from hitting the step. Eyes EOMs intact bilaterally Neck full ROM Chest Wall inspection of chest normal and palpation of chest normal Resp normal respiratory effort and clear to auscultation bilaterally Cardio Rhythm: abnormal rhythm irregularly irregular GI non-tender Palpation: soft Back/Spine Thoracic Spine / Upper Back: Negative for thoracic spinal tenderness Lumbar Spine / Lower Back: Negative for lumbar spinal tenderness Extremity Extremity Narrative: 4 cm skin tear noted to the right upper extremity just proximal to the elbow. No bony tenderness with full range of motion. Small abrasion noted to the anterior left knee with no bony tenderness. Full range of motion. Neuro oriented x3 and moves all extremities Sensorium / Orientation: alert Psych mental status grossly normal Skin Skin Narrative: Skin tear and abrasion as noted above. MDM MDM MDM Narrative Medical decision making narrative: Patient sent for CT imaging of the brain and C-spine given head trauma with Eliquis. Tetanus update will be provided. Right upper extremity skin tear will be cleansed and dressed. Radiography Diagnostic Testing: Clinical Impression(s) from Imaging Studies Brain CT 09/05/23 17:06 IMPRESSION: No acute findings in the head/brain. Electronically Signed: Heraclio Luna MD at 18:22 EDT , Cervical Spine CT 09/05/23 17:06 IMPRESSION: 1. No acute osseous abnormalities of the cervical spine. 2. Hardware from anterior fusion of C3-C5 in stable position. 3. Degenerative changes with disc space narrowing. There is 3 mm anterior listhesis of C6 on C7. Electronically Signed: Heraclio Luna MD at 18:32 EDT , Treatment and Re-Evaluation Narrative: CT scan of the head reveals no acute findings. CT the C-spine reveals no acute osseous abnormalities. Hardware from prior anterior fusion is stable. Test results discussed with the patient. Her right upper extremity wound has been cleansed and dressed. Wound care discussed. Patient will be discharged home with family. Discharge Plan Triage Chief Complaint: Fall ED Provider: Mine Shaffer Dx/Rx/DC Orders Clinical Impression: Skin tear, Contusion of face, Fall Instructions: ED Facial Contusion, ED Fall with Uncertain Cause, ED Skin Tear (Skin Avulsion) Prescriptions: No Action calcium carbonate 500 mg calcium (1,250 mg) tablet 500 mg PO DAILY cyclobenzaprine 10 mg tablet 10 mg PO HS PRN (Reason: muscle spasm) famotidine 20 mg tablet 20 mg PO BID Patient Comments: Take 1 tablet by mouthUtwice daily. diclofenac sodium 75 mg tablet,delayed release (DR/EC) 75 mg PO Q OTHER DAY fluticasone propionate 50 mcg/actuation spray,suspension 2 spray intranasal QDAY PRN melatonin 5 mg tablet 10 mg PO HS PRN Trelegy Ellipta 100-62.5-25 mcg blister with device 1 ea inhalation QDAY multivitamin with folic acid 1 TABLET tablet 1 tab PO DAILY Patient Comments: VITAMIN sucralfate 100 mg/mL suspension 10 ml PO ACHS Patient Comments: Take 10 mL by mouthEbefore meals and at bedtime. (560cc=2wks) furosemide 40 mg tablet 40 mg PO .COMPLEX Qty: 180 3RF Rx Instructions: 40 mg orally daily: may need to take twice daily as needed for weight gain, leg swelling or shortness of breath; Needs extra tablets potassium chloride 20 mEq tablet,ER particles/crystals 20 meq PO .COMPLEX Qty: 180 3RF Rx Instructions: 20 mEq orally daily, may need to take twice daily when Lasix is increased for shortness of breath, weight gain or leg swelling; needs extra pills; Jardiance 10 mg tablet 10 mg PO DAILY Qty: 90 3RF flecainide 100 mg tablet 100 mg PO Q12H Qty: 180 3RF apixaban 5 mg tablet 5 mg PO BID Qty: 180 3RF metoprolol succinate 50 mg tablet extended release 24 hr 50 mg PO BID Qty: 180 3RF Primary Care Provider: Minerva Manley Referrals: Minerva Manley MD [Primary Care Provider] - 1-2 Weeks Disposition Disposition: Home, Self Care
[2023-09-05] MEDS: Diphth,Pertuss(Acell),Tet Vac 0.5 ML Vial IM (17:14)
[2023-09-05 18:48] VITALS: BP 140/88; PULSE 90; RESP 14; TEMP 36.6; O2SAT 96
== END 2023-09-05 18:55 | disposition home or self-care (01) ==
PROVIDERS: Emergency Provider Emergency Medicine; PCP Internal Medicine; Visit Provider Emergency Medicine
DX: S00.83XA Contusion of other part of head, initial encounter (principal); I48.0 Paroxysmal atrial fibrillation; S51.011A Laceration without foreign body of right elbow, initial encounter; Z79.01 Long term (current) use of anticoagulants; W10.9XXA Fall (on) (from) unspecified stairs and steps, initial encounter; Z86.718 Personal history of other venous thrombosis and embolism; Z87.891 Personal history of nicotine dependence
CPT/HCPCS: 70450; 72125; 90715; 99282

== ENCOUNTER → 2023-12-22 | Outpatient (CLI) | payer OTHER, MEDICARE, SELFPAY ==
[2023-12-22 12:25] LABS: Absolute Lymphocyte Count 2.25 X10^3/uL (0.83-4.51); Absolute Neutrophil Count 3.7 X10^3/uL (2.0-7.7); Basophil# 0.03 X10^3/uL; Basophil% 0.4 % (0-1); Eosinophil# 0.14 X10^3/uL; Eosinophils% 2.1 % (0-5); Hemoglobin 13.4 g/dL (12.0-15.0); Lymphocyte # 2.25 X10^3/ul (0.83-4.51); Lymphocyte % 33.6 % (19-41); Mean Corp Hgb Conc 32.7 g/dL (32-36); Mean Corpuscular Hgb 30.5 pg (27.0-32.0); Mean Corpuscular Volume 93.2 fL (81-99); Monocyte# 0.53 X10^3/uL; Monocyte% 7.9 % (0-10); NRBC Flagged by Analyzer 0 % (0-5); Neutrophil # 3.73 X10^3/uL (2.7-7.7); Neutrophil % 55.7 % (47-70); Platelet Count 263 K/mm3 (150-450); RBC Distribution Width CV 12.4 % (11.6-14.6); RBC Distribution Width SD 42.4 fl (35.1-43.9); White Blood Count 6.7 K/mm3 (4.4-11.0)
[2023-12-22 12:39] LABS: BNP,B-Type NATRIURETIC PEPTIDE 343.9 pg/mL (0-100)
[2023-12-22 12:54] LABS: Anion Gap 3 (5-15); BUN 26 mg/dL (7-18); BUN/Creat Ratio 32.6 RATIO (10-20); Calcium,Total 10.1 mg/dL (8.5-10.1); Chloride 107 mmol/L (98-107); EST Glomerular Filtration Rate 74 mL/min (>60); Est Glom Filt Rate - Afr Amer 90 mL/min (>60); Glucose 110 mg/dL (74-106); Potassium 4.2 mmol/L (3.5-5.1); Sodium Level 139 mmol/L (136-145)
== END | disposition home or self-care (01) ==
LOC: LAB 11:56
PROVIDERS: PCP Internal Medicine; Referring Provider Nurse Practitioner Family; Visit Provider Nurse Practitioner Family
DX: R06.09 Other forms of dyspnea (principal); I50.32 Chronic diastolic (congestive) heart failure; I48.0 Paroxysmal atrial fibrillation; R53.83 Other fatigue; I67.1 Cerebral aneurysm, nonruptured
CPT/HCPCS: 36415; 80048; 83880; 85025

== ENCOUNTER → 2023-12-23 | Outpatient (CLI) | payer OTHER, MEDICARE, SELFPAY ==
--- NOTE | 2023-12-23 09:45 | CDU_ITS ---
Reason For Study: DIZZINESS Rt. Velocities/BP Lt. Velocities/BP Prox CCA 80.9/14.9 cm/sec. Prox CCA 51.1/10.1 cm/sec. Mid CCA 56.7/9.5 cm/sec. Mid CCA 49.4/13.6 cm/sec. Dist CCA 31.1/8.4 cm/sec. Dist CCA 84.3/19.7 cm/sec. Prox ICA 30.5/10.6 cm/sec. Prox ICA 35.6/14.4 cm/sec. Mid ICA 49.0/20.6 cm/sec. Mid ICA 44.6/11.8 cm/sec. Dist ICA 56.7/20.4 cm/sec. Dist ICA 43.8/21.8 cm/sec. Rt. ICA/CCA = 56.7/56.7=1.0. Lt. ICA/CCA = 44.6/49.4=0.9. Prox ECA 41.5/7.5 cm/sec. Prox ECA 35.4/4.9 cm/sec. Rt. Vert. 34.6/8.3 cm/sec. Lt. Vert. 38.1/14.5 cm/sec. Right Extracranial There is intimal thickening but no significant atherosclerotic plaque noted in the right common carotid artery. There is heterogeneous, irregular atherosclerotic plaque noted in the right internal carotid artery. There is heterogeneous, smooth atherosclerotic plaque noted in the right external carotid artery. Antegrade flow is noted in the right vertebral artery. Left Extracranial There is heterogeneous, irregular atherosclerotic plaque noted in the left common carotid artery. There is heterogeneous, smooth atherosclerotic plaque noted in the left internal carotid artery. There is no significant atherosclerotic plaque noted in the left external carotid artery. Antegrade flow is noted in the left vertebral artery. Procedure Carotid Duplex 37906. This is a Carotid Duplex examination using B-mode, color flow and specral Doppler. The study was technically difficult. D/T ARRHYTHMIA. Exam performed in department. VL/Carotid Duplex Ultrasound Interpretation Summary Mild (<50%) stenosis right extracranial internal carotid. Mild (<50%) stenosis left extracranial internal carotid. Patent and antegrade vertebrals bilaterally. Ordering Physician: Susan Mac Referring Physician: Minerva Manley Performed By: Usha Mcdonald RDCS, RVT
== END | disposition home or self-care (01) ==
LOC: CVS 09:43
PROVIDERS: PCP Internal Medicine; Referring Provider Physician Assistant Medical; Visit Provider Physician Assistant Medical
DX: R42 Dizziness and giddiness (principal)
CPT/HCPCS: 93880

== ENCOUNTER 2024-01-15 11:06 | Day surgery (SDC) | payer OTHER, MEDICARE, SELFPAY ==
[2024-01-14 08:56] VITALS: BMI 25.4
--- NOTE | 2024-01-15 12:59 | PCM.OP.PRO ---
Procedure Report Date of Procedure: 01/15/24 DC cardioversion. 78-year-old lady with a history of atrial fibrillation. The patient was brought to cardiac catheterization lab in the postabsorptive nonsedated state. Patient was seen by Dr. Montes of the critical care division. Informed consent was obtained. Anterior-posterior pads were applied. 40 mg intravenous propofol was administered and then 200 J of synchronized biphasic DC cardioversion energy were applied with prompt reversal to sinus rhythm. Patient tolerated the procedure well. Conclusion: Successful DC cardioversion from atrial fibrillation to sinus rhythm. Follow-up as per office protocol.
--- NOTE | 2024-01-15 13:20 | PRO.PCM_ITS ---
Procedure Report Date of Procedure: 01/15/24 CONSCIOUS SEDATION REPORT DATE OF SERVICE: January 15, 2024 BRIEF HISTORY OF PRESENT ILLNESS: The patient is a 78-year-old female who presented to [facility] for elective outpatient cardioversion due to underlying atrial fibrillation. The patient denied any prior anesthetic complications. She does have a history of known COPD and is currently followed by Dr. Sylvia Montes of pulmonary medicine at [facility]. She has never been diagnosed with obstructive sleep apnea. She is systemically anticoagulated on Eliquis. Her last surface echocardiogram demonstrated an ejection fraction of approximately 60%. The patient did undergo a prior cardioversion in June 2023, which was successful in restoring normal sinus rhythm. PHYSICAL EXAMINATION: VITAL SIGNS: Reviewed and were acceptable. GENERAL: The patient is a female, in no apparent distress, speaking in full sentences. HEENT: Normocephalic, atraumatic. Mucous membranes are moist and pink. Good mouth opening noted. Trachea is midline. CHEST: S1, S2 irregularly irregular. No murmurs, rubs or gallops were noted. LUNGS: Clear to auscultation bilaterally without appreciable wheezes, rales or rhonchi. ABDOMEN: Soft, nontender, nondistended. Positive bowel sounds. EXTREMITIES: There is no clubbing, cyanosis or edema. ASA Class: II DESCRIPTION OF PROCEDURE: After confirmation of informed consent, the patient's anesthesia plan was reviewed in detail. Propofol was chosen. Risks and benefits were reviewed and the patient agreed to proceed. At 1252, the patient was given 40 mg of propofol. The patient achieved an appropriate level of sedation and was given a 200 joule synchronized cardioversion by Dr. Ibarra at the bedside. This was successful in achieving normal sinus rhythm. The patient was monitored until 1308, at which time she reached her baseline mental status and function. The patient tolerated the procedure well. COMPLICATIONS: None ESTIMATED BLOOD LOSS: None RECOMMENDATIONS: Okay to recover in usual fashion. Procedures Pulmonary Pulmonary Procedures /Diagnostic Testin Con Sedation
== END 2024-01-15 13:50 | disposition home or self-care (01) ==
PROVIDERS: PCP Internal Medicine; Referring Provider Internal Medicine Cardiovascular Disease; Visit Provider Internal Medicine Cardiovascular Disease
DX: I48.0 Paroxysmal atrial fibrillation (principal); I50.32 Chronic diastolic (congestive) heart failure; I11.0 Hypertensive heart disease with heart failure; Z79.01 Long term (current) use of anticoagulants; K21.9 Gastro-esophageal reflux disease without esophagitis; Z79.899 Other long term (current) drug therapy; Z86.718 Personal history of other venous thrombosis and embolism; Z87.891 Personal history of nicotine dependence
CPT/HCPCS: 92960; 93005; J7040

== ENCOUNTER → 2024-03-24 | Outpatient (CLI) | payer OTHER, MEDICARE, SELFPAY ==
--- NOTE | 2024-03-24 12:15 | RAD_ITS ---
INDICATION: SOB EXAMINATION/TECHNIQUE: X-RAY - XR Chest 2 Views COMPARISON: FINDINGS: LINES/DEVICES: None. LUNGS: No consolidation, edema or effusion. Left basilar atelectasis. No pneumothorax. MEDIASTINUM AND CARDIOVASCULAR STRUCTURES: Cardiac silhouette not enlarged. Central airways and mediastinal contour are unremarkable. BONES AND SOFT TISSUES: Degenerative vertebral changes and scoliosis. RAD/Chest PA and Lateral IMPRESSION: Left basilar atelectasis. Electronically Signed: Berto Fulton DO at 8:13 EST ,
[2024-03-24 12:36] LABS: Absolute Lymphocyte Count 2.64 X10^3/uL (0.83-4.51); Basophil# 0.04 X10^3/uL; Basophil% 0.5 % (0-1); Eosinophil# 0.18 X10^3/uL; Eosinophils% 2.4 % (0-5); Hematocrit 40.7 % (37-47); Hemoglobin 13.7 g/dL (12.0-15.0); Lymphocyte # 2.64 X10^3/ul (0.83-4.51); Lymphocyte % 34.9 % (19-41); Mean Corp Hgb Conc 33.7 g/dL (32-36); Mean Corpuscular Hgb 30.6 pg (27.0-32.0); Mean Corpuscular Volume 91.1 fL (81-99); Mean Platelet Vol. 10.6 fl (6.2-12.0); Monocyte% 9.3 % (0-10); NRBC Flagged by Analyzer 0 % (0-5); Neutrophil # 3.97 X10^3/uL (2.7-7.7); Neutrophil % 52.5 % (47-70); Platelet Count 249 K/mm3 (150-450); RBC Distribution Width CV 12.8 % (11.6-14.6); RBC Distribution Width SD 42.1 fl (35.1-43.9); Red Blood Count 4.47 M/mm3 (4.2-5.4); White Blood Count 7.6 K/mm3 (4.4-11.0)
[2024-03-24 13:04] LABS: Anion Gap 6 (5-15); BUN 54 mg/dL (7-18); Calcium,Total 9.4 mg/dL (8.5-10.1); Chloride 102 mmol/L (98-107); EST Glomerular Filtration Rate 36 mL/min (>60); Est Glom Filt Rate - Afr Amer 43 mL/min (>60); Glucose 110 mg/dL (74-106); Potassium 3.7 mmol/L (3.5-5.1); Sodium Level 138 mmol/L (136-145)
== END | disposition home or self-care (01) ==
PROVIDERS: PCP Internal Medicine; Referring Provider Nurse Practitioner Family; Visit Provider Nurse Practitioner Family
DX: R06.09 Other forms of dyspnea (principal); I48.0 Paroxysmal atrial fibrillation
CPT/HCPCS: 36415; 71046; 80048; 83880; 85025

== ENCOUNTER → 2024-04-02 | Outpatient (CLI) | payer OTHER, MEDICARE, SELFPAY ==
[2024-04-02 12:11] LABS: Anion Gap 5 (5-15); BUN 29 mg/dL (7-18); BUN/Creat Ratio 25.2 RATIO (10-20); Chloride 96 mmol/L (98-107); Creatinine, Serum 1.15 mg/dL (0.55-1.02); EST Glomerular Filtration Rate 49 mL/min (>60); Est Glom Filt Rate - Afr Amer 59 mL/min (>60); Glucose 127 mg/dL (74-106); Potassium 3.7 mmol/L (3.5-5.1); Sodium Level 135 mmol/L (136-145)
== END | disposition home or self-care (01) ==
LOC: LAB 11:28
PROVIDERS: PCP Internal Medicine; Referring Provider Nurse Practitioner Family; Visit Provider Nurse Practitioner Family
DX: I50.32 Chronic diastolic (congestive) heart failure (principal)
CPT/HCPCS: 36415; 80048

== ENCOUNTER 2024-04-12 10:52 | Emergency (ER) | payer OTHER, MEDICARE, SELFPAY ==
[2024-04-12] VITALS (33 sets, daily range): BP systolic 94–172; BP diastolic 60–148; PULSE 81–141; RESP 10–31; TEMP 36.6–36.9; O2SAT 90–99; BMI 25.1
--- NOTE | 2024-04-12 11:27 | EKG12_ITS ---
Test Reason : SOB Blood Pressure : */* mmHG Vent. Rate : 143 BPM Atrial Rate : * BPM P-R Int : * ms QRS Dur : 74 ms QT Int : 334 ms P-R-T Axes : * -36 255 degrees QTcB Int : 515 ms Critical Test Result: High HR Atrial fibrillation with rapid ventricular response with premature ventricular or aberrantly conducte d complexes Left axis deviation ST & T wave abnormality, consider anterolateral ischemia Abnormal ECG Confirmed by Manuel Reyes ([id number]), business editor DAVID CONNOLLY ([id number]) on 04/14/2024 5:54:41 AM Referred By: JERRY/ERICK Confirmed By: Manuel Reyes
--- NOTE | 2024-04-12 11:28 | EDS_ITS ---
HPI History of Present Illness Chief Complaint: Shortness of Breath Informant: patient Narrative Narrative: 78-year-old female history of atrial fibrillation on Eliquis and metoprolol as well as heart failure with preserved ejection fraction [facility] shortness of breath. Patient notes over the past several weeks she has had worsening shortness of breath. She notes a cough and some slight weight gain of a couple pounds. She states she has been working with her doctor and is increased her Lasix. Patient states that she is at some point supposed to have a EP study at [facility]. Patient states that she is started to use her home oxygen b ut has not had to use it for several years. She typically takes her metoprolol at 12:30 AM and p.m. due to working second shift. She notes that her heart has been racing all morning. Patient notes allergy to Cardizem as well as amiodarone. There was some discussion that she was to be on Tikosyn. She is possibly on flecainide. [facility] Medical History Osteoarthritis of right hip Right hip pain Hamstring muscle strain Left hip pain Acute stroke due to ischemia Tubular adenoma of colon URI (upper respiratory infection) Chronic neck and back pain Difficulty balancing when standing Abnormal bruising Diarrhea Chest pain Heart disease Shoulder pain SOB (shortness of breath) Cancer History of DVT (deep vein thrombosis) Arthritis Panlobular emphysema Atrial fibrillation Hypertension Rotator cuff tear Tendonitis of shoulder, right Carpal tunnel syndrome Calculus of kidney Moses's esophagus Paroxysmal atrial fibrillation Chronic diastolic (congestive) heart failure 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) use of anticoagulants Cardiomyopathy in other diseases classified elsewhere Nonrheumatic aortic valve stenosis Non-rheumatic tricuspid valve insufficiency Scoliosis of cervical spine GERD (gastroesophageal reflux disease) Home Medications ?Medication ?Instructions ?Recorded ?Last Taken ?Type multivitamin with folic acid 400 1 tab PO DAILY supplement 03/15/13 10/31/18 07:00 History mcg tablet calcium carbonate 500 mg PO DAILY Check with primary 06/25/21 Unknown History doctor cyclobenzaprine 10 mg tablet 10 mg PO HS PRN muscle spasm 07/25/22 Unknown History sucralfate 100 mg/mL oral 10 ml PO ACHS 12/31/22 Unknown History suspension potassium chloride 20 mEq 20 meq PO .COMPLEX #180 tabs 01/27/23 Unknown Rx tablet,extended release(part/cryst) apixaban 5 mg tablet 5 mg PO BID #180 tabs 06/16/23 01/15/24 Rx diclofenac sodium 75 mg 75 mg PO Q OTHER DAY 08/11/23 Unknown History tablet,delayed release fluticasone fur. 100 mcg-umeclid 1 ea inhalation QDAY 08/11/23 Unknown History 62.5 mcg-vilant 25 mcg inhalat.powder (Trelegy Ellipta) fluticasone propionate 50 2 spray intranasal QDAY PRN 08/11/23 Unknown History mcg/actuation nasal allergy symptoms spray,suspension melatonin 5 mg tablet 10 mg PO HS PRN insomnia 08/11/23 Unknown History empagliflozin 10 mg tablet 10 mg PO DAILY #90 tabs 12/03/23 Unknown Rx (Jardiance) omeprazole 40 mg capsule,delayed 40 mg PO QDAY 12/22/23 Unknown History release metoprolol succinate 25 mg 50 mg PO BID Dose decreased, pt 03/16/24 Unknown History tablet,extended release 24 hr wants 25 mg tablets spironolactone 25 mg tablet 25 mg PO DAILY #30 tabs 03/24/24 Unknown Rx ondansetron 4 mg disintegrating 4 mg PO Q8H PRN nausea and 03/26/24 Unknown Rx tablet vomiting #7 tabs flecainide 100 mg tablet 100 mg PO BID 04/12/24 Unknown History furosemide 40 mg tablet 60 mg (1.5 x 40 mg) PO BID 90 days 04/12/24 Unknown Rx #270 tabs metoprolol succinate 50 mg 50 mg PO BID 04/12/24 Unknown History tablet,extended release 24 hr Allergy/AdvReac Type Severity Reaction Status Date / Time etodolac Allergy Intermediate Other Verified 04/12/24 10:53 diltiazem HCl (From Cardizem) Allergy Swelling Verified 04/12/24 10:53 of face and neck naproxen Allergy Swelling Verified 04/12/24 10:53 (whole body) prednisone Allergy Other Verified 04/12/24 10:53 amiodarone AdvReac Severe Severe Verified 04/12/24 10:53 dyspnea after taking PO Amiodarone adhesive AdvReac Rash Verified 04/12/24 10:53 albuterol AdvReac Other Verified 04/12/24 10:53 codeine AdvReac Vomiting Verified 04/12/24 10:53 hydrocodone bitartrate (From AdvReac Vomiting Verified 04/12/24 10:53 Vicodin) morphine AdvReac Vomiting Verified 04/12/24 10:53 Family History Sister Afib Father CAD (coronary artery disease) Brother CVA (cerebral vascular accident) Mother No problems noted. Sister No problems noted. Brother Wilsons disease Brother Wilsons disease Surgical History Hx of fusion of cervical spine History of radiofrequency ablation procedure for cardiac arrhythmia (07/27/15) History of left heart catheterization (03/15/13) History of cardioversion (07/04/23) Hx of cholecystectomy H/O neck surgery ovarian surgery H/O hernia repair Social History Smoking Status: Former smoker alcohol intake: never substance use type: does not use caffeine: Yes Type: coffee Number of servings: 1 what type of physical activity do you participate in: walking frequency: daily seatbelt use: always do you feel safe at home: Yes ROS ROS ED Constitutional Constitutional ED: Denies chills, fever(s) or weight loss Eyes Eyes: Denies change in vision or diplopia ENT ENT ED: Denies ear pain, rhinorrhea or sore throat Cardiovascular Cardiovascular: Reports racing heartbeat; Denies chest pain, orthopnea or palpitations Respiratory/Chest Respiratory/Chest: Reports cough, dyspnea and dyspnea on exertion; Denies orthopnea Gastrointestinal Gastrointestinal: Denies abdominal pain, diarrhea, nausea or vomiting Genitourinary Genitourinary ED: Denies dysuria, hematuria or urinary frequency Musculoskeletal Musculoskeletal: Denies arthralgias or myalgias Integumentary Denies abscess or rash Neurologic Neurologic: Denies headache(s) or weakness Psychiatric Psychiatric: Denies anxiety, depression, suicidal ideation or suicidal thoughts Endocrine Endocrinology: Denies polydipsia, polyphagia or polyuria Allergic/Immunologic Allergic/Immunologic ED: Denies mouth swelling, tongue swelling or urticaria EXAM Physical Exam Const Vital Signs: 04/12/24 10:54 04/12/24 11:17 04/12/24 11:17 Temperature 97.9 F 98.1 F Temperature Source Temporal Oral Pulse Rate 81 127 H 128 H Respiratory Rate 20 H 19 H 19 H Respiratory Effort Respiratory Depth Respiratory Pattern Blood Pressure 109/74 112/63 112/63 Blood Pressure Mean 85 79 79 Pulse Ox 95 96 95 Oxygen Delivery Method Room Air Room Air Room Air 04/12/24 11:26 04/12/24 11:27 04/12/24 12:17 Temperature 98.1 F Temperature Source Oral Pulse Rate 119 H Respiratory Rate 16 Respiratory Effort Short of Breath Respiratory Depth Normal Respiratory Pattern Normal Blood Pressure 119/68 Blood Pressure Mean 85 Pulse Ox 97 Oxygen Delivery Method Room Air Room Air Room Air 04/12/24 13:00 04/12/24 14:00 04/12/24 15:00 Temperature 98.2 F 98 F Temperature Source Oral Oral Pulse Rate 96 96 132 H Respiratory Rate 18 16 22 H Respiratory Effort Respiratory Depth Respiratory Pattern Blood Pressure 113/72 114/72 98/78 Blood Pressure Mean 85 86 84 Pulse Ox 97 97 96 Oxygen Delivery Method Room Air Room Air Room Air Positive well nourished and well developed General Appearance ED: well developed HEENT Reports normocephalic, head/scalp atraumatic and moist mucous membranes Eyes PERRL and EOMs intact bilaterally Neck no lymphadenopathy, supple and no JVD Resp normal respiratory effort Auscultation: rales bilateral lower Cardio regular rhythm and no murmurs Rate: tachycardic Rhythm: abnormal rhythm irregularly irregular GI normal to inspection, nondistended, normoactive bowel sounds and non-tender Palpation: soft Back/Spine no CVA tenderness and normal ROM Extremity normal to inspection General Extremety ED: Negative for edema General Extremity: Negative for edema Neuro oriented x3 and CN's II-XII intact bilaterally Sensorium / Orientation: alert Motor Exam: strength 5/5 throughout Psych mental status grossly normal Mood & Affect: Negative for depressed or tearful Skin no rashes or lesions noted and no wounds MDM MDM MDM Narrative Medical decision making narrative: Differential diagnosis includes but not limited to UTI heart failure cardiac dysrhythmia electrolyte abnormalities acute coronary syndrome dehydration Minus interpretation of the chest x-ray is no acute finding. Patient's BNP is elevated 394 troponin is 8 magnesium 2.2 potassium 3.6 BUN 27 creatinine 1.04. Hemoglobin 13.3. Patient received IV metoprolol and on the second dose was noted to become hypotensive. After some time the patient's blood pressure did improve heart rate is still been variable from mid 90s to around 130. She does not get hypoxic with ambulation. Gave her her oral dose of metoprolol. I also gave an additional dose of Lasix. It appears that the patient was on flecainide but it was being held in preparation for a cardiac ablation scheduled for 22 April at [facility]. Plan was then to put her in the hospital and start her on Tikosyn. I spoke with our plant pathologist Dr. Reyes who recommended transfer to [facility]. I am currently awaiting callback from [facility]. History & Record Review Discussion w/independent historian: Patient Additional record(s) reviewed:: Prior outpatient record, Prior ED visit and Prior labs Lab Data Attestation: I reviewed the patient's lab results. Labs: Laboratory Results - last 24 hr 04/12/24 11:20 WBC 8.5 RBC 4.36 Hgb 13.3 Hct 40.1 MCV 92.0 MCH 30.5 MCHC 33.2 RDW Std Deviation 42.1 RDW Coeff of Elvie 12.4 Plt Count 280 MPV 10.1 Immature Gran % (Auto) 0.200 Neut % (Auto) 61.1 Lymph % (Auto) 27.5 [place] % (Auto) 8.0 Eos % (Auto) 2.7 Baso % (Auto) 0.5 Absolute Neuts (auto) 5.2 Absolute Lymphs (auto) 2.33 Nucleated RBC % 0 Sodium 140 Potassium 3.6 Chloride 101 Carbon Dioxide 33.0 H Anion Gap 6 BUN 27 H Creatinine 1.04 H Estim Creat Clear Calc 38.36 Est GFR (MDRD) Af Amer 66 Est GFR (MDRD) Non-Af 55 L BUN/Creatinine Ratio 26.0 H Glucose 106 Calcium 9.8 Magnesium 2.2 Troponin I High Sens 8 B-Natriuretic Peptide 394.1 H Radiography Diagnostic Testing: Clinical Impression(s) from Imaging Studies Chest X-Ray 04/12/24 11:55 IMPRESSION: COPD/emphysema Electronically Signed: Arnulfo Tolentino MD at 12:36 EST Reading Location ID and State: [facility] / [place] , Service support , EKG Initial EKG: Attestation: I personally reviewed and interpreted this EKG as follows: Comments: Atrial fibrillation with rapid ventricular response at 143 bpm. Management Discussion w/another healthcare provider: Hospitalist (Dr Gordillo) and Loss Prevention Auditor (Dr Reyes) Discharge Plan Triage Chief Complaint: Shortness of Breath ED Provider: Jose Zamudio Dx/Rx/DC Orders Clinical Impression: Atrial fibrillation with rapid ventricular response, CHF (congestive heart failure), SOB (shortness of breath) Prescriptions: No Action calcium carbonate 500 mg calcium (1,250 mg) tablet 500 mg PO DAILY cyclobenzaprine 10 mg tablet 10 mg PO HS PRN (Reason: muscle spasm) diclofenac sodium 75 mg tablet,delayed release (DR/EC) 75 mg PO Q OTHER DAY fluticasone propionate 50 mcg/actuation spray,suspension 2 spray intranasal QDAY PRN (Reason: allergy symptoms) melatonin 5 mg tablet 10 mg PO HS PRN (Reason: insomnia) Trelegy Ellipta 100-62.5-25 mcg blister with device 1 ea inhalation QDAY spironolactone 25 mg tablet 25 mg PO DAILY Qty: 30 11RF omeprazole 40 mg capsule,delayed release(DR/EC) 40 mg PO QDAY metoprolol succinate 25 mg tablet extended release 24 hr 50 mg PO BID multivitamin with folic acid 1 TABLET tablet 1 tab PO DAILY Patient Comments: VITAMIN sucralfate 100 mg/mL suspension 10 ml PO ACHS Patient Comments: Take 10 mL by mouthEbefore meals and at bedtime. (560cc=2wks) metoprolol succinate 50 mg tablet extended release 24 hr 50 mg PO BID flecainide 100 mg tablet 100 mg PO BID potassium chloride 20 mEq tablet,ER particles/crystals 20 meq PO .COMPLEX Qty: 180 3RF Rx Instructions: 20 mEq orally daily, may need to take twice daily when Lasix is increased for shortness of breath, weight gain or leg swelling; needs extra pills; apixaban 5 mg tablet 5 mg PO BID Qty: 180 3RF Jardiance 10 mg tablet 10 mg PO DAILY Qty: 90 3RF ondansetron 4 mg tablet,disintegrating 4 mg PO Q8H PRN (Reason: nausea and vomiting) Qty: 7 0RF furosemide 40 mg tablet 60 mg PO BID 90 Days Qty: 270 3RF Primary Care Provider: Minerva Manley Referrals: Minerva Manley MD [Primary Care Provider] - Print Language: [place] Island[place] Disposition Disposition: Acute Care Hospital Discharge Location: [facility]
[2024-04-12 11:38] LABS: Absolute Lymphocyte Count 2.33 X10^3/uL (0.83-4.51); Absolute Neutrophil Count 5.2 X10^3/uL (2.0-7.7); Basophil# 0.04 X10^3/uL; Basophil% 0.5 % (0-1); Eosinophil# 0.23 X10^3/uL; Eosinophils% 2.7 % (0-5); Hematocrit 40.1 % (37-47); Hemoglobin 13.3 g/dL (12.0-15.0); Lymphocyte # 2.33 X10^3/ul (0.83-4.51); Lymphocyte % 27.5 % (19-41); Mean Corp Hgb Conc 33.2 g/dL (32-36); Mean Corpuscular Hgb 30.5 pg (27.0-32.0); Mean Platelet Vol. 10.1 fl (6.2-12.0); Monocyte# 0.68 X10^3/uL; NRBC Flagged by Analyzer 0 % (0-5); Neutrophil # 5.16 X10^3/uL (2.7-7.7); Neutrophil % 61.1 % (47-70); Platelet Count 280 K/mm3 (150-450); RBC Distribution Width CV 12.4 % (11.6-14.6); RBC Distribution Width SD 42.1 fl (35.1-43.9); Red Blood Count 4.36 M/mm3 (4.2-5.4); White Blood Count 8.5 K/mm3 (4.4-11.0)
[2024-04-12] MEDS: Metoprolol Tartrate 5 MG/5 ML Vial IV ×2 (11:40→11:47)
--- NOTE | 2024-04-12 11:55 | RAD_ITS ---
STUDY: X-RAY CHEST REASON FOR EXAM: Female, 78 years old. chf TECHNIQUE: Single AP portable view of the chest. COMPARISON: March 24, 2024 FINDINGS: 1. No demonstrated new focus of consolidation. 2. There are interstitial fibrotic changes of the lungs. There is no demonstrated pleural abnormality. 3. No pleural effusion is present. 4. Normal heart size 5. Stable mediastinum and osseous structures 6. COPD/emphysema There is no demonstrated abnormality of the visualized soft tissue structures of the upper abdomen. RAD/Chest 1 View (Portable) IMPRESSION: COPD/emphysema Electronically Signed: Arnulfo Tolentino MD at 12:36 EST ,
[2024-04-12 12:01] LABS: Anion Gap 6 (5-15); BUN 27 mg/dL (7-18); Calcium,Total 9.8 mg/dL (8.5-10.1); Chloride 101 mmol/L (98-107); Creatinine, Serum 1.04 mg/dL (0.55-1.02); EST Glomerular Filtration Rate 55 mL/min (>60); Est Glom Filt Rate - Afr Amer 66 mL/min (>60); Estimated Creatinine Clearance 38.36 ml/min; Glucose 106 mg/dL (74-106); Magnesium 2.2 mg/dL (1.6-2.6); Potassium 3.6 mmol/L (3.5-5.1); Sodium Level 140 mmol/L (136-145); Troponin-I HS 8 pg/mL (3.0-54.0)
[2024-04-12 12:58] LABS: BNP,B-Type NATRIURETIC PEPTIDE 394.1 pg/mL (0-100)
[2024-04-12] MEDS: Furosemide 100 MG/10 ML Vial 60 MG IV (15:10)
[2024-04-12] MEDS: Metoprolol(XL)Succ 50 MG Tablet PO (15:10)
--- NOTE | 2024-04-12 18:17 | NURSING ---
PHYSICIANS ADVISED THAT CREW SHOULD BE HERE AT LEAST BEFORE 7, 6PM ORIGINAL ETA.
== END 2024-04-12 20:56 | disposition short-term general hospital (02) ==
PROVIDERS: Emergency Provider Emergency Medicine; PCP Internal Medicine; Visit Provider Emergency Medicine
DX: I48.0 Paroxysmal atrial fibrillation (principal); I11.0 Hypertensive heart disease with heart failure; I50.32 Chronic diastolic (congestive) heart failure; Z79.01 Long term (current) use of anticoagulants; Z79.899 Other long term (current) drug therapy; Z87.891 Personal history of nicotine dependence
CPT/HCPCS: 71045; 80048; 83735; 83880; 84484; 85025; 93005; 96374; 96375; 99285; A4216; J1940

== ENCOUNTER → 2024-04-19 | Outpatient (CLI) | payer OTHER, MEDICARE, SELFPAY ==
[2024-04-19 10:19] LABS: Absolute Lymphocyte Count 2.38 X10^3/uL (0.83-4.51); Absolute Neutrophil Count 4.8 X10^3/uL (2.0-7.7); Basophil# 0.03 X10^3/uL; Basophil% 0.4 % (0-1); Eosinophil# 0.26 X10^3/uL; Eosinophils% 3.1 % (0-5); Lymphocyte # 2.38 X10^3/ul (0.83-4.51); Lymphocyte % 28.7 % (19-41); Mean Corp Hgb Conc 33.3 g/dL (32-36); Mean Corpuscular Hgb 30.6 pg (27.0-32.0); Mean Corpuscular Volume 91.9 fL (81-99); Mean Platelet Vol. 9.7 fl (6.2-12.0); Monocyte# 0.83 X10^3/uL; NRBC Flagged by Analyzer 0 % (0-5); Neutrophil # 4.77 X10^3/uL (2.7-7.7); Neutrophil % 57.4 % (47-70); Platelet Count 278 K/mm3 (150-450); RBC Distribution Width CV 12.4 % (11.6-14.6); RBC Distribution Width SD 41.1 fl (35.1-43.9); Red Blood Count 4.57 M/mm3 (4.2-5.4); White Blood Count 8.3 K/mm3 (4.4-11.0)
[2024-04-19 11:02] LABS: AST(SGOT) 22 U/L (15-37); Alanine Aminotransfer ALT/SGPT 32 U/L (13-56); Albumin, Serum 3.8 g/dL (3.2-5.0); Alkaline Phosphatase 108 U/L (45-117); Anion Gap 5 (5-15); BUN 29 mg/dL (7-18); BUN/Creat Ratio 27.9 RATIO (10-20); Chloride 106 mmol/L (98-107); Creatinine, Serum 1.04 mg/dL (0.55-1.02); EST Glomerular Filtration Rate 55 mL/min (>60); Est Glom Filt Rate - Afr Amer 66 mL/min (>60); Globulin 3.7 g/dL (2.2-4.2); Glucose 85 mg/dL (74-106); Magnesium 2.3 mg/dL (1.6-2.6); Protein, Total 7.5 g/dL (6.4-8.2); Sodium Level 138 mmol/L (136-145)
== END | disposition home or self-care (01) ==
LOC: LAB 10:00
PROVIDERS: PCP Internal Medicine; Referring Provider Nurse Practitioner Family; Visit Provider Nurse Practitioner Family
DX: I48.0 Paroxysmal atrial fibrillation (principal); I50.32 Chronic diastolic (congestive) heart failure; I67.1 Cerebral aneurysm, nonruptured; R53.83 Other fatigue
CPT/HCPCS: 36415; 80053; 83735; 85025

== ENCOUNTER 2024-05-25 23:20 | Emergency (ER) | payer OTHER, MEDICARE, SELFPAY ==
[2024-05-25 23:20] VITALS: BP 165/93; PULSE 152; RESP 19; TEMP 36.3; O2SAT 97; BMI 24.2
[2024-05-25] MEDS: 0.9% Normal Saline (500mL Bag) 500 ML 999 ML IV (23:56)
[2024-05-25] MEDS: Ondansetron 4 MG/2 ML Vial IV (23:56)
[2024-05-26 00:01] LABS: Absolute Lymphocyte Count 3.33 X10^3/uL (0.83-4.51); Absolute Neutrophil Count 4.3 X10^3/uL (2.0-7.7); Basophil# 0.03 X10^3/uL; Basophil% 0.3 % (0-1); Eosinophil# 0.22 X10^3/uL; Eosinophils% 2.5 % (0-5); Hematocrit 40.7 % (37-47); Hemoglobin 13.7 g/dL (12.0-15.0); Lymphocyte # 3.33 X10^3/ul (0.83-4.51); Lymphocyte % 38.6 % (19-41); Mean Corp Hgb Conc 33.7 g/dL (32-36); Mean Corpuscular Hgb 30.7 pg (27.0-32.0); Mean Corpuscular Volume 91.3 fL (81-99); Monocyte# 0.66 X10^3/uL; Monocyte% 7.6 % (0-10); NRBC Flagged by Analyzer 0 % (0-5); Neutrophil # 4.31 X10^3/uL (2.7-7.7); Neutrophil % 50.1 % (47-70); Platelet Count 332 K/mm3 (150-450); RBC Distribution Width CV 13.5 % (11.6-14.6); RBC Distribution Width SD 45.1 fl (35.1-43.9); Red Blood Count 4.46 M/mm3 (4.2-5.4); White Blood Count 8.6 K/mm3 (4.4-11.0)
[2024-05-26 00:07] VITALS: BP 125/69; PULSE 74; RESP 25; O2SAT 86
[2024-05-26 00:07] LABS: Anion Gap 8 (5-15); BUN 35 mg/dL (7-18); Calcium,Total 9.8 mg/dL (8.5-10.1); Chloride 103 mmol/L (98-107); Creatinine, Serum 0.95 mg/dL (0.55-1.02); EST Glomerular Filtration Rate 61 mL/min (>60); Est Glom Filt Rate - Afr Amer 74 mL/min (>60); Estimated Creatinine Clearance 39.22 ml/min; Glucose 122 mg/dL (74-106); Potassium 3.4 mmol/L (3.5-5.1); Sodium Level 139 mmol/L (136-145)
[2024-05-26 00:09] VITALS: O2SAT 99
--- NOTE | 2024-05-26 00:32 | EX.ED.DYSGE1 ---
HPI History of Present Illness Chief Complaint: Palpitations Informant: patient Narrative Narrative: Patient is a 79-year-old female with history of paroxysmal atrial fibrillation currently on Eliquis. She recently had an ablation 3 to 4 weeks ago secondary to the recurrent nature of her atrial fibrillation. She states that she has been doing well and been taking her medications as directed which include metoprolol and Tikosyn for her A-fib. She states while working she suddenly folic her heart was racing and this made her feel lightheaded and dizzy and shortness of breath. She states this has happened in the past but this time was more intense and was lasting longer and secondary to this presents to the ER for evaluation. [facility] Medical History (Updated 05/26/24 @ 01:[address] 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 100 mcg-umeclid 1 ea inhalation QDAY 08/11/23 Unknown History 62.5 mcg-vilant 25 mcg inhalat.powder (Trelegy Ellipta) fluticasone propionate 50 2 spray intranasal QDAY PRN 08/11/23 Unknown History mcg/actuation nasal allergy symptoms spray,suspension melatonin 5 mg tablet 10 mg PO HS PRN insomnia 08/11/23 Unknown History empagliflozin 10 mg tablet 10 mg PO DAILY #90 tabs 12/03/23 Unknown Rx (Jardiance) omeprazole 40 mg capsule,delayed 40 mg PO QDAY 12/22/23 Unknown History release spironolactone 25 mg tablet 25 mg PO DAILY #30 tabs 03/24/24 Unknown Rx atorvastatin 20 mg tablet 20 mg PO QDAY 04/19/24 Unknown History calcium 333 mg-magnesium 133 mg-D3 1 tab PO DAILY 04/19/24 Unknown History 1.67 mcg-zinc 5 mg tablet dofetilide 125 mcg capsule 125 mcg PO BID 04/19/24 Unknown History furosemide 20 mg tablet 20 mg PO TID 04/19/24 Unknown History metoprolol succinate 25 mg 25 mg PO QDAY 04/19/24 Unknown History tablet,extended release 24 hr nystatin 100,000 unit/mL oral 1 ml PO QDAY 04/19/24 Unknown History suspension sucralfate 100 mg/mL oral 10 ml PO ACHS PRN stoma 04/28/24 Unknown History suspension Allergy/AdvReac Type Severity Reaction Status Date / Time etodolac Allergy Intermediate Other Verified 05/25/24 23:21 diltiazem HCl (From Cardizem) Allergy Swelling Verified 05/25/24 23:21 of face and neck naproxen Allergy Swelling Verified 05/25/24 23:21 (whole body) prednisone Allergy Other Verified 05/25/24 23:21 amiodarone AdvReac Severe Severe Verified 05/25/24 23:21 dyspnea after taking PO Amiodarone adhesive AdvReac Rash Verified 05/25/24 23:21 albuterol AdvReac Other Verified 05/25/24 23:21 codeine AdvReac Vomiting Verified 05/25/24 23:21 hydrocodone bitartrate (From AdvReac Vomiting Verified 05/25/24 23:21 Vicodin) morphine AdvReac Vomiting Verified 05/25/24 23:21 Family History Sister Afib Father CAD (coronary artery disease) Brother CVA (cerebral vascular accident) Mother No problems noted. Sister No problems noted. Brother Wilsons disease Brother Wilsons disease Surgical History (Updated 04/23/24 @ 08:34 by Nagi Freeman NIPPLE THREADER, NIPPLE THREADER-C) Hx of fusion of cervical spine History of radiofrequency ablation procedure for cardiac arrhythmia (07/27/15) History of left heart catheterization (03/15/13) History of cardioversion (04/15/24) Hx of cholecystectomy H/O neck surgery ovarian surgery H/O hernia repair Social History Smoking Status: Former smoker alcohol intake: never substance use type: does not use caffeine: Yes Type: coffee Number of servings: 1 what type of physical activity do you participate in: walking frequency: daily seatbelt use: always do you feel safe at home: Yes ROS ROS ED Constitutional Constitutional ED: Denies chills or fever(s) Eyes Eyes: Denies blurry vision or change in vision ENT ENT ED: Denies sore throat Cardiovascular Cardiovascular: Reports palpitations, racing heartbeat and other Details: Positive dizziness/lightheadedness ; Denies chest pain Respiratory/Chest Respiratory/Chest: Denies cough or dyspnea Gastrointestinal Gastrointestinal: Denies abdominal pain, diarrhea, nausea or vomiting Genitourinary Genitourinary ED: Denies dysuria Musculoskeletal Musculoskeletal: Denies myalgias Integumentary Denies rash Neurologic Neurologic: Denies headache(s) or paresthesias Hematologic/Lymphatic Hematologic/Lymphatic: Reports easy bleeding and easy bruising EXAM Physical Exam Const Vital Signs: 05/25/24 23:20 05/25/24 23:20 05/26/24 00:07 Temperature 97.4 F L Temperature Source Temporal Pulse Rate 152 H 74 Respiratory Rate 19 H 25 H Respiratory Effort Normal Non-Labored Blood Pressure 165/93 H 125/69 H Blood Pressure Mean 117 87 Pulse Ox 97 86 Oxygen Delivery Method Room Air Room Air Oxygen Flow Rate (L/min) 05/26/24 00:09 05/26/24 00:40 Temperature 98.1 F Temperature Source Pulse Rate 71 Respiratory Rate 16 Respiratory Effort Blood Pressure 144/80 H Blood Pressure Mean 101 Pulse Ox 99 99 Oxygen Delivery Method Nasal Cannula Oxygen Flow Rate (L/min) 2 Positive well nourished and well developed General Appearance ED: well developed; Negative for pallor HEENT Reports dry mucous membranes HEENT Narrative: Normocephalic atraumatic No tongue or lip swelling no oral lesions no airway edema or compromise Mouth ED: Yes dry mucous membranes Mouth: dry mucous membranes Eyes PERRL and EOMs intact bilaterally General Eye ED: Negative for scleral icterus Neck supple and no JVD Neck Narrative: No nuchal rigidity or meningeal signs noted Resp normal respiratory effort and clear to auscultation bilaterally Cardio Rate: other Other Details: Irregularly irregular rhythm with tachycardic rate and frequent ectopic beats noted GI normal to inspection, nondistended, normoactive bowel sounds, non-tender, non-distended and no masses Auscultation: normoactive bowel sounds Palpation: soft Extremity Extremity Narrative: Trace pitting edema to the bilateral lower extremities that is equal and symmetric Neuro oriented x3, CN's II-XII intact bilaterally and no sensory deficits noted Neuro Narrative: No pronator drift no dysmetria no truncal ataxia Sensorium / Orientation: alert Motor Exam: strength 5/5 throughout Psych mental status grossly normal Skin no rashes or lesions noted and No skin turgor normal Skin Narrative: Skin turgor is increased General Skin Exam: Negative for jaundice or pallor MDM MDM MDM Narrative Medical decision making narrative: Patient arrived to the ER awake and alert with a normal neurologic exam but she was tachycardic and EKG showed changes consistent with A-fib with RVR and frequent PVCs. As she is only 3 to 4 weeks out from her ablation this is to be expected as the ablation should not prevent reoccurrence until 3 to 6 months after its completion. In order to ensure that her A-fib is not related to acute blood loss anemia acute electrolyte abnormality or acute kidney injury I did elect to perform basic laboratory studies. Labs revealed no clinically significant findings. Initially IV Lopressor was ordered as patient will is in A-fib with RVR at approximate 130 bpm. However after establishing the IV prior to providing the medication she had spontaneous conversion to normal sinus rhythm. Patient was watched in the ER while laboratory studies were pending and she was given 500 mL of fluid as her physical exam did show mild dehydration changes. After spontaneous conversion patient remained in normal sinus rhythm during the entire ER stay and after receiving mild hydration she did report feeling better. Therefore at this time as her A-fib has spontaneously converted her labs do not show acute blood loss anemia clinically significant [place] abnormality or acute kidney injury she is otherwise safe for discharge History & Record Review Discussion w/independent historian: Patient Lab Data Attestation: I reviewed the patient's lab results. Labs: Laboratory Results - last 24 hr 01/14/25 23:30 WBC 8.6 RBC 4.46 Hgb 13.7 Hct 40.7 MCV 91.3 MCH 30.7 MCHC 33.7 RDW Std Deviation 45.1 H RDW Coeff of Elvie 13.5 Plt Count 332 MPV 10.0 Immature Gran % (Auto) 0.900 Neut % (Auto) 50.1 Lymph % (Auto) 38.6 [place] % (Auto) 7.6 Eos % (Auto) 2.5 Baso % (Auto) 0.3 Absolute Neuts (auto) 4.3 Absolute Lymphs (auto) 3.33 Nucleated RBC % 0 Sodium 139 Potassium 3.4 L Chloride 103 Carbon Dioxide 28.0 Anion Gap 8 BUN 35 H Creatinine 0.95 Estim Creat Clear Calc 39.22 Est GFR (MDRD) Af Amer 74 Est GFR (MDRD) Non-Af 61 BUN/Creatinine Ratio 37.0 H Glucose 122 H Calcium 9.8 Magnesium 2.0 TSH 4.880 H Discharge Plan Triage Chief Complaint: Palpitations ED Provider: Saul Guzman Dx/Rx/DC Orders Clinical Impression: Paroxysmal atrial fibrillation, Chronic diastolic (congestive) heart failure, 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 Instructions: AFib Dc Prescriptions: No Action cyclobenzaprine 10 mg tablet 10 mg PO HS PRN (Reason: muscle spasm) fluticasone propionate 50 mcg/actuation spray,suspension 2 spray intranasal QDAY PRN (Reason: allergy symptoms) melatonin 5 mg tablet 10 mg PO HS PRN (Reason: insomnia) Trelegy Ellipta 100-62.5-25 mcg blister with device 1 ea inhalation QDAY spironolactone 25 mg tablet 25 mg PO DAILY Qty: 30 11RF omeprazole 40 mg capsule,delayed release(DR/EC) 40 mg PO QDAY metoprolol succinate 25 mg tablet extended release 24 hr 25 mg PO QDAY atorvastatin 20 mg tablet 20 mg PO QDAY dofetilide 125 mcg capsule 125 mcg PO BID furosemide 20 mg tablet 20 mg PO TID calc carb-mag ox-D3-zinc gluc 333 mg-133 mg- 1.67 mcg-5 mg tablet 1 tab PO DAILY nystatin 100,000 unit/mL suspension 1 ml PO QDAY multivitamin with folic acid 1 TABLET tablet 1 tab PO DAILY Patient Comments: VITAMIN sucralfate 100 mg/mL suspension 10 ml PO ACHS PRN (Reason: stoma) Patient Comments: Take 10 mL by mouthEbefore meals and at bedtime. (560cc=2wks) apixaban 5 mg tablet 5 mg PO BID Qty: 180 3RF Jardiance 10 mg tablet 10 mg PO DAILY Qty: 90 3RF Primary Care Provider: Minerva Manley Referrals: Minerva Manley MD [Primary Care Provider] - Activity Restrictions/Additional Instructions: Please continue all of your home medications as directed by your doctor and return to the ER should you have any further concerns or worsening of symptoms Print Language: Azeri Disposition Disposition: Home, Self Care Discharge Date/Time: 05/26/24 00:46
[2024-05-26 00:40] VITALS: BP 144/80; PULSE 71; RESP 16; TEMP 36.7; O2SAT 99
== END 2024-05-26 00:46 | disposition home or self-care (01) ==
PROVIDERS: Emergency Provider Emergency Medicine; PCP Internal Medicine; Visit Provider Emergency Medicine
DX: I48.0 Paroxysmal atrial fibrillation (principal); I11.0 Hypertensive heart disease with heart failure; I50.32 Chronic diastolic (congestive) heart failure; Z79.01 Long term (current) use of anticoagulants; Z79.899 Other long term (current) drug therapy; Z87.891 Personal history of nicotine dependence

== ENCOUNTER → 2024-07-29 | Outpatient (CLI) | payer OTHER, MEDICARE, SELFPAY ==
--- NOTE | 2024-07-29 12:33 | RAD_ITS ---
PROCEDURE: HIPS B/L MIN 2 VIEWS W/ PELVIS 07/29/2024 REASON FOR EXAM: LIANA HIP PAIN TECHNIQUE: Three views of both hips were obtained. COMPARISON: Comparison is made with prior study dated August 15, 2023. FINDINGS: Stable marked degree of joint space narrowing and osteoarthritis of the right hip joint with peripheral spur formation. Stable moderate to severe narrowing of the left hip joint as well. Degenerative changes of the symphysis pubis as well as the sacroiliac joints bilaterally. Degenerative changes of the lumbar spine. Bilateral tubal ligation clips are seen in the pelvis. Large amount of fecal material is seen in the colon. RAD/Hips B/L min 2 views w/ Pelvis IMPRESSION: Essentially stable examination with degenerative changes of both hip joints wor se on the right side as described. Reading Location: [place] [id number]
== END | disposition home or self-care (01) ==
LOC: RAD 12:29
PROVIDERS: PCP Internal Medicine; Referring Provider Anesthesiology Pain Medicine; Visit Provider Anesthesiology Pain Medicine
DX: M25.551 Pain in right hip (principal); M25.552 Pain in left hip
CPT/HCPCS: 73521

== ENCOUNTER 2024-07-31 22:29 | Emergency (ER) | payer OTHER, MEDICARE, SELFPAY ==
[2024-07-31] VITALS (8 sets, daily range): BP systolic 118–159; BP diastolic 63–86; PULSE 66–188; RESP 10–23; TEMP 36.1; O2SAT 89–97; BMI 26.0
[2024-07-31] MEDS: 0.9% Normal Saline (1000mL) 1,000 ML 999 ML IV (22:40)
[2024-07-31] MEDS: Metoprolol Tartrate 5 MG/5 ML Vial IV ×3 (22:43→22:53)
--- NOTE | 2024-07-31 23:14 | EKG12_ITS ---
Test Reason : PALPITATIONS Blood Pressure : */* mmHG Vent. Rate : 119 BPM Atrial Rate : * BPM P-R Int : * ms QRS Dur : 74 ms QT Int : 336 ms P-R-T Axes : * -33 58 degrees QTcB Int : 472 ms Atrial fibrillation with rapid ventricular response with premature ventricular or aberrantly conducted complexes Left axis deviation Nonspecific ST abnormality Abnormal ECG Confirmed by ROWDY HICKS, SELVIN ([id number]), movie editor DAVID CONNOLLY ([id number]) on 08/02/2024 6:44:10 AM Referred By: ATIF Confirmed By: SELVIN RENO MD
--- NOTE | 2024-07-31 23:15 | EKG12_ITS ---
Test Reason : RHYTHM CHANGE Blood Pressure : */* mmHG Vent. Rate : 67 BPM Atrial Rate : 67 BPM P-R Int : 146 ms QRS Dur : 80 ms QT Int : 438 ms P-R-T Axes : 81 -28 51 degrees QTcB Int : 462 ms Normal sinus rhythm Normal ECG Confirmed by ROWDY HICKS, SELVIN ([id number]), news videotape editor DAVID CONNOLLY ([id number]) on 08/02/2024 6:44:28 AM Referred By: Confirmed By: SELVIN RENO MD
--- NOTE | 2024-07-31 23:16 | ED.VIS.CHEST ---
HPI History of Present Illness Chief Complaint: Palpitations Informant: patient Narrative Narrative: Patient is a 79-year-old female with history of paroxysmal atrial fibrillation status post cardiac ablation roughly 3 months ago. She is on Eliquis Tikosyn and metoprolol secondary to her A-fib. She was at work this evening doing her normal physical activity/job when she began to feel like her heart was racing/skipping beats. She states it does this intermittently so she was not concerned but then began to feel as if she was about to pass out and therefore presents to the ER for evaluation. She states she has been taking all of her medication as directed. She denies any excessive stimulant use or illicit drug use. [facility] Medical History Osteoarthritis of right hip Right hip pain Hamstring muscle strain Left hip pain Acute stroke due to ischemia Tubular adenoma of colon URI (upper respiratory infection) Chronic neck and back pain Difficulty balancing when standing Abnormal bruising Diarrhea Chest pain Heart disease Shoulder pain SOB (shortness of breath) Cancer History of DVT (deep vein thrombosis) Arthritis Panlobular emphysema Atrial fibrillation Hypertension Rotator cuff tear Tendonitis of shoulder, right Carpal tunnel syndrome Calculus of kidney Moses's esophagus Paroxysmal atrial fibrillation Chronic diastolic (congestive) heart failure [facility] (current) use of anticoagulants Cardiomyopathy in other diseases classified elsewhere Nonrheumatic aortic valve stenosis Non-rheumatic tricuspid valve insufficiency Scoliosis of cervical spine GERD (gastroesophageal reflux disease) Home Medications ?Medication ?Instructions ?Recorded ?Last Taken ?Type multivitamin with folic acid 400 1 tab PO DAILY supplement 03/15/13 10/31/18 07:00 History mcg tablet cyclobenzaprine 10 mg tablet 10 mg PO HS PRN muscle spasm 07/25/22 Unknown History fluticasone fur. 100 mcg-umeclid 1 ea inhalation QDAY 08/11/23 Unknown History 62.5 mcg-vilant 25 mcg inhalat.powder (Trelegy Ellipta) fluticasone propionate 50 2 spray intranasal QDAY PRN 08/11/23 Unknown History mcg/actuation nasal allergy symptoms spray,suspension melatonin 5 mg tablet 10 mg PO HS PRN insomnia 08/11/23 Unknown History empagliflozin 10 mg tablet 10 mg PO DAILY #90 tabs 12/03/23 Unknown Rx (Jardiance) omeprazole 40 mg capsule,delayed 40 mg PO QDAY 12/22/23 Unknown History release spironolactone 25 mg tablet 25 mg PO DAILY #30 tabs 03/24/24 Unknown Rx calcium 333 mg-magnesium 133 mg-D3 1 tab PO DAILY 04/19/24 Unknown History 1.67 mcg-zinc 5 mg tablet dofetilide 125 mcg capsule 125 mcg PO BID 04/19/24 Unknown History metoprolol succinate 25 mg 25 mg PO QDAY 04/19/24 Unknown History tablet,extended release 24 hr sucralfate 100 mg/mL oral 10 ml PO ACHS PRN stoma 04/28/24 Unknown History suspension apixaban 5 mg tablet 5 mg PO BID #180 tabs 06/25/24 Unknown Rx furosemide 20 mg tablet 40 mg PO QDAY 07/27/24 Unknown History Allergy/AdvReac Type Severity Reaction Status Date / Time etodolac Allergy Intermediate Other Verified 07/31/24 22:37 diltiazem HCl (From Cardizem) Allergy Swelling Verified 07/31/24 22:37 of face and neck naproxen Allergy Swelling Verified 07/31/24 22:37 (whole body) prednisone Allergy Other Verified 07/31/24 22:37 amiodarone AdvReac Severe Severe Verified 07/31/24 22:37 dyspnea after taking PO Amiodarone adhesive AdvReac Rash Verified 07/31/24 22:37 albuterol AdvReac Other Verified 07/31/24 22:37 codeine AdvReac Vomiting Verified 07/31/24 22:37 hydrocodone bitartrate (From AdvReac Vomiting Verified 07/31/24 22:37 Vicodin) morphine AdvReac Vomiting Verified 07/31/24 22:37 Family History Sister Afib Father CAD (coronary artery disease) Brother CVA (cerebral vascular accident) Mother No problems noted. Sister No problems noted. Brother Wilsons disease Brother Wilsons disease Surgical History Hx of fusion of cervical spine History of radiofrequency ablation procedure for cardiac arrhythmia (07/27/15) History of left heart catheterization (03/15/13) History of cardioversion (04/15/24) Hx of cholecystectomy H/O neck surgery ovarian surgery H/O hernia repair Social History Smoking Status: Former smoker alcohol intake: never substance use type: does not use caffeine: Yes Type: coffee Number of servings: 1 what type of physical activity do you participate in: walking frequency: daily seatbelt use: always do you feel safe at home: Yes ROS ROS ED Constitutional Constitutional ED: Denies chills or fever(s) Eyes Eyes: Denies blurry vision or change in vision ENT ENT ED: Denies sore throat Cardiovascular Cardiovascular: Reports palpitations, racing heartbeat and other Details: Positive lightheadedness/near syncope ; Denies chest pain Respiratory/Chest Respiratory/Chest: Denies cough or dyspnea Gastrointestinal Gastrointestinal: Denies abdominal pain, diarrhea, nausea or vomiting Genitourinary Genitourinary ED: Denies dysuria Musculoskeletal Musculoskeletal: Denies back pain or myalgias Integumentary Denies rash Neurologic Neurologic: Denies headache(s) Hematologic/Lymphatic Hematologic/Lymphatic: Reports easy bleeding and easy bruising EXAM Physical Exam Const Vital Signs: 07/31/24 22:30 07/31/24 22:34 07/31/24 22:40 Temperature 97 F L Temperature Source Oral Pulse Rate 188 H 172 H 143 H Respiratory Rate 23 H 16 Blood Pressure 159/86 H Blood Pressure Mean 110 Pulse Ox 97 93 07/31/24 22:45 07/31/24 22:47 07/31/24 23:00 Temperature Temperature Source Pulse Rate 123 H 129 H 66 Respiratory Rate 16 18 11 L Blood Pressure 124/84 H 118/65 Blood Pressure Mean 97 81 Pulse Ox 89 93 94 07/31/24 23:15 07/31/24 23:30 Temperature Temperature Source Pulse Rate 69 67 Respiratory Rate 12 10 L Blood Pressure 123/63 H 137/69 H Blood Pressure Mean 83 88 Pulse Ox 94 95 Positive well nourished and well developed General Appearance ED: well developed; Negative for pallor HEENT HEENT Narrative: Normocephalic atraumatic Eyes PERRL and EOMs intact bilaterally General Eye ED: Negative for pale conjunctiva or scleral icterus Neck supple and no JVD Neck Narrative: No nuchal rigidity or meningeal signs Chest Wall palpation of chest normal Chest Narrative: No bony deformity or crepitance Resp normal respiratory effort and clear to auscultation bilaterally Resp Narrative: No nasal flaring retractions tachypnea or accessory muscle use Cardio Rate: other Other Details: Irregularly irregular rhythm with tachycardic rate consistent with atrial fibrillation with RVR GI normal to inspection, nondistended, normoactive bowel sounds, soft to palpation, non-tender, non-distended and no masses Auscultation: normoactive bowel sounds Palpation: soft Extremity normal to inspection Extremity Narrative: No asymmetric edema no pitting edema negative Homans' sign bilaterally Neuro oriented x3, CN's II-XII intact bilaterally and no sensory deficits noted Sensorium / Orientation: alert Motor Exam: strength 5/5 throughout Psych mental status grossly normal Skin no rashes or lesions noted General Skin Exam: Negative for jaundice or pallor MDM MDM MDM Narrative Medical decision making narrative: Patient arrived to the ER tachycardic at approximately 170 to 180 bpm with an irregular rhythm consistent with her history of paroxysmal atrial fibrillation. Otherwise she is awake and alert and protecting her airway and maintaining her blood pressure so therefore there is no need for an emergent cardioversion. In order to assess for reversible causes of her A-fib such as acute blood loss anemia acute kidney injury clinically significant [place] abnormality or thyroid disorder basic blood work was obtained. Patient was started on IV fluids in case dehydration was a cause of her breakthrough A-fib and ordered IV Lopressor. After receiving roughly 500 mL of fluid and 3 doses of Lopressor the patient underwent spontaneous cardioversion back to normal sinus rhythm. The patient remained in normal sinus rhythm for the rest of her ER stay. Labs revealed no clinically significant findings. Therefore at this time as patient has a known history of paroxysmal atrial fibrillation and is on medication for it as well has anticoagulation there is no need for continued observation in the ER and she is otherwise safe for discharge. History & Record Review Discussion w/independent historian: Patient Lab Data Labs: Laboratory Results - last 24 hr 07/31/24 22:34 WBC 10.5 RBC 4.61 Hgb 14.7 Hct 42.9 MCV 93.1 MCH 31.9 MCHC 34.3 RDW Std Deviation 43.4 RDW Coeff of Elvie 12.9 Plt Count 320 MPV 11.0 Immature Gran % (Auto) 0.400 Neut % (Auto) 45.5 L Lymph % (Auto) 44.5 H [place] % (Auto) 7.7 Eos % (Auto) 1.4 Baso % (Auto) 0.5 Absolute Neuts (auto) 4.8 Absolute Lymphs (auto) 4.65 H Nucleated RBC % 0 Sodium 143 Potassium 4.6 Chloride 105 Carbon Dioxide 22.9 Anion Gap 15 BUN 28 H Creatinine 1.11 Estim Creat Clear Calc 35.99 L Est GFR (MDRD) Non-Af 51 L BUN/Creatinine Ratio 25.2 H Glucose 128 H Calcium 10.1 Magnesium 2.1 TSH 4.480 H Discharge Plan Triage Chief Complaint: Palpitations ED Provider: Saul Guzman Dx/Rx/DC Orders Clinical Impression: Paroxysmal atrial fibrillation with rapid ventricular response, Chronic diastolic (congestive) heart failure, Current use of detention anticoagulation, Hypertension Instructions: AFib Dc Prescriptions: No Action cyclobenzaprine 10 mg tablet 10 mg PO HS PRN (Reason: muscle spasm) fluticasone propionate 50 mcg/actuation spray,suspension 2 spray intranasal QDAY PRN (Reason: allergy symptoms) melatonin 5 mg tablet 10 mg PO HS PRN (Reason: insomnia) Trelegy Ellipta 100-62.5-25 mcg blister with device 1 ea inhalation QDAY spironolactone 25 mg tablet 25 mg PO DAILY Qty: 30 11RF omeprazole 40 mg capsule,delayed release(DR/EC) 40 mg PO QDAY metoprolol succinate 25 mg tablet extended release 24 hr 25 mg PO QDAY dofetilide 125 mcg capsule 125 mcg PO BID calc carb-mag ox-D3-zinc gluc 333 mg-133 mg- 1.67 mcg-5 mg tablet 1 tab PO DAILY furosemide 20 mg tablet 40 mg PO QDAY multivitamin with folic acid 1 TABLET tablet 1 tab PO DAILY Patient Comments: VITAMIN sucralfate 100 mg/mL suspension 10 ml PO ACHS PRN (Reason: stoma) Patient Comments: Take 10 mL by mouthEbefore meals and at bedtime. (560cc=2wks) Jardiance 10 mg tablet 10 mg PO DAILY Qty: 90 3RF apixaban 5 mg tablet 5 mg PO BID Qty: 180 3RF Primary Care Provider: Minerva Manley Referrals: Minerva Manley MD [Primary Care Provider] - Activity Restrictions/Additional Instructions: Please continue all of your home medications as directed by your doctor and return to the ER should you have any further concerns or worsening of symptoms Print Language: Lithuanian Disposition Disposition: Home, Self Care
[2024-07-31 23:17] LABS: Magnesium 2.1 mg/dL (1.5-2.2)
[2024-07-31 23:22] LABS: Anion Gap 15 (5-15); BUN 28 mg/dL (4-19); BUN/Creat Ratio 25.2 RATIO (10-20); Calcium,Total 10.1 mg/dL (7.6-11.0); Carbon Dioxide 22.9 mmol/L (21.0-32.0); Chloride 105 mmol/L (98-108); Creatinine, Serum 1.11 mg/dL (0.70-1.20); EST Glomerular Filtration Rate 51 (>60); Estimated Creatinine Clearance 35.99 ml/min (50-250); Glucose 128 mg/dL (70-99); Potassium 4.6 mmol/L (3.3-5.1); Sodium Level 143 mmol/L (133-145)
[2024-08-01] VITALS: BP 136/61; PULSE 64; RESP 13; TEMP 36.7; O2SAT 97
[2024-08-01 00:11] LABS: Absolute Lymphocyte Count 4.65 X10^3/uL (0.83-4.51); Absolute Neutrophil Count 4.8 X10^3/uL (2.0-7.7); Basophil# 0.05 X10^3/uL; Basophil% 0.5 % (0-1); Eosinophil# 0.15 X10^3/uL; Eosinophils% 1.4 % (0-5); Hematocrit 42.9 % (37-47); Hemoglobin 14.7 g/dL (12.0-15.0); Lymphocyte # 4.65 X10^3/ul (0.83-4.51); Lymphocyte % 44.5 % (19-41); Mean Corp Hgb Conc 34.3 g/dL (32-36); Mean Corpuscular Hgb 31.9 pg (27.0-32.0); Mean Corpuscular Volume 93.1 fL (81-99); Monocyte# 0.81 X10^3/uL; Monocyte% 7.7 % (0-10); NRBC Flagged by Analyzer 0 % (0-5); Neutrophil # 4.76 X10^3/uL (2.7-7.7); Neutrophil % 45.5 % (47-70); Platelet Count 320 K/mm3 (150-450); RBC Distribution Width CV 12.9 % (11.6-14.6); RBC Distribution Width SD 43.4 fl (35.1-43.9); Red Blood Count 4.61 M/mm3 (4.2-5.4); White Blood Count 10.5 K/mm3 (4.4-11.0)
== END 2024-08-01 00:33 | disposition home or self-care (01) ==
PROVIDERS: Emergency Provider Emergency Medicine; PCP Internal Medicine; Visit Provider Emergency Medicine
DX: I48.0 Paroxysmal atrial fibrillation (principal); I11.0 Hypertensive heart disease with heart failure; I50.32 Chronic diastolic (congestive) heart failure; I42.9 Cardiomyopathy, unspecified; Z79.01 Long term (current) use of anticoagulants; Z79.899 Other long term (current) drug therapy; Z86.718 Personal history of other venous thrombosis and embolism; Z87.891 Personal history of nicotine dependence
CPT/HCPCS: 80048; 83735; 84443; 85025; 93005; 96361; 96374; 99284; J0153

== ENCOUNTER → 2024-08-17 | Outpatient (CLI) | payer OTHER, MEDICARE, SELFPAY ==
--- NOTE | 2024-08-17 11:26 | RAD_ITS ---
PROCEDURE: CERV SPINE 4 OR 5 VIEWS 08/17/2024 REASON FOR EXAM: PAIN TECHNIQUE: 2 views of the cervical spine. COMPARISON: None available FINDINGS: Vertebrae: Vertebral body heights are well preserved. Postsurgical changes of a plate and screw fixation within the anterior C3-C5 level. disc spaces: Multilevel loss of intervertebral disc height along the C3-C4, and C4-C5 Alignment: Exaggerated lordosis of the cervical spine. No dynamic instability. soft tissues: No overlying soft tissue swelling. Other: None RAD/Cerv Spine 4 or 5 Views IMPRESSION: *No dynamic instability on flexion and extension views. *Postsurgical changes anterior approach spinal fusion C3-C5 level. Reading Location: [id number]
--- NOTE | 2024-08-17 11:26 | RAD_ITS ---
PROCEDURE: 08/17/2024 REASON FOR EXAM: PAIN TECHNIQUE: Standing AP view(s) of the thoracic and lumbar spine. COMPARISON: None. FINDINGS: Mild S shaped scoliosis is present. There is extensive DJD throughout the lumbosacral spine. There is disc space narrowing throughout. There is subchondral sclerosis at the endplates of the vertebral bodies. There is osteophytic spurring. Extensive facet arthropathy seen throughout. There is diffuse osteopenia present. Extensive atheromatous calcification seen within the aorta.? Surgical clips seen within the deep pelvis, partially visualized. Correlate clinically. RAD/L/S Spine Min 4 Views IMPRESSION: Extensive lumbosacral degenerative arthropathy Reading Location: [id number]
== END | disposition home or self-care (01) ==
LOC: MTRAD 11:26
PROVIDERS: PCP Internal Medicine; Referring Provider Student in an Organized Health Care Education/Training Program; Visit Provider Student in an Organized Health Care Education/Training Program
DX: M54.2 Cervicalgia (principal); M54.50 Low back pain, unspecified
CPT/HCPCS: 72050; 72110

== ENCOUNTER → 2024-09-15 | Outpatient (CLI) | payer OTHER, MEDICARE, SELFPAY ==
--- NOTE | 2024-09-15 13:25 | NEURO ---
NCS and/or EMG Patient Report Ordering Doctor: Ada Jaeger DATE OF SERVICE: 09/15/24 Elizabeth presents numbness and tingling in the left hand. Electrodiagnostic findings: Left median motor nerve demonstrates normal distal latency with reduced amplitude and reduced conduction velocity. Left ulnar motor response is within normal limits. Prolonged median sensory latency at the wrist. Normal ulnar and radial sensory sponsors. Needle EMG testing was performed the left upper limb. All muscles tested showed no evidence of denervation with normal motor unit action potentials. Electrodiagnostic impression: This is an abnormal study in the left upper limb. 2. Electrodiagnostic findings suggestive of left-sided median mononeuropathy. This consistent with a moderate left carpal tunnel syndrome. 2. There is no electrodiagnostic evidence for cervical radiculopathy. Multi Select Codes Neurology Neurology Interp Codes: 08237-93 Musc test done w/n test comp (interp) and 45733-78 Nrv cndj tst 5-6 studies (interp)
== END | disposition home or self-care (01) ==
LOC: PSN 10:48
PROVIDERS: PCP Internal Medicine; Referring Provider Student in an Organized Health Care Education/Training Program; Visit Provider Student in an Organized Health Care Education/Training Program
DX: G56.02 Carpal tunnel syndrome, left upper limb (principal)
CPT/HCPCS: 95886; 95909

== ENCOUNTER → 2024-09-17 | Outpatient (CLI) | payer OTHER, MEDICARE, SELFPAY ==
[2024-09-17 17:14] LABS: Albumin, Serum 4.5 g/dL (3.4-4.8); Anion Gap 14 (5-15); BUN 39 mg/dL (4-19); BUN/Creat Ratio 33.5 RATIO (10-20); Calcium,Total 9.8 mg/dL (7.6-11.0); Carbon Dioxide 25.2 mmol/L (21.0-32.0); Chloride 100 mmol/L (98-108); Creatinine, Serum 1.15 mg/dL (0.70-1.20); EST Glomerular Filtration Rate 49 (>60); Glucose 114 mg/dL (70-99); Phosphorus 4.1 mg/dL (2.7-4.5); Potassium 3.7 mmol/L (3.3-5.1); Sodium Level 140 mmol/L (133-145)
== END | disposition home or self-care (01) ==
LOC: LAB 16:02
PROVIDERS: PCP Internal Medicine; Referring Provider Anesthesiology Pain Medicine; Visit Provider Anesthesiology Pain Medicine
DX: N18.9 Chronic kidney disease, unspecified (principal)
CPT/HCPCS: 36415; 80069

== ENCOUNTER → 2024-09-25 | Outpatient (CLI) | payer OTHER, MEDICARE, SELFPAY ==
--- NOTE | 2024-09-25 08:22 | MRI_ITS ---
PROCEDURE: SPINE LUMBAR (ROUTINE) 09/25/2024 REASON FOR EXAM: PAIN TECHNIQUE: Multiplanar and multisequence images were obtained without IV contrast administration. COMPARISON: Lumbar spine radiographs 08/17/2024 FINDINGS: Vertebral body heights are maintained. There is leftward curvature of the lumbar spine. Multilevel disc height and signal loss. Slightly heterogeneous appearance of the marrow signal, without focal abnormality. There is T1 and T2 hyperintensity at the right aspect of the endplates at L3-4 (Modic type 2 changes). Cord signal is unremarkable. Conus terminates at mid L1. Mild atrophy of the paraspinal musculature. Subcentimeter hyperintensity in the right hepatic lobe on the localizer sequence, which corresponds with a T1 hypointensity on the coronal sequence, likely a simple cyst. Level by level description: L1-2: Mild disc bulging, predominantly at the left lateral aspect where there is also osteophyte formation and likely contact of the exiting nerve root.. Moderate facet arthropathy. No significant neural foraminal or spinal canal narrowing. L2-3: Mild disc bulging. Moderate facet arthropathy. No significant neural foraminal or spinal canal narrowing. L3-4: Rypq-wk-eqvqwwof disc bulging. Moderate facet arthropathy. Ligamentum flavum hypertrophy. There is mild right neural foraminal narrowing and mild spinal canal narrowing, with spinal canal measuring 8 mm in AP diameter. L4-5: Moderate disc bulge. Ligamentum flavum hypertrophy. There is moderate facet arthropathy. Moderate right and mild left neural foraminal narrowing, with likely contact of the exiting nerve root on the right. Moderate spinal canal narrowing with AP diameter of 6 mm. L5-S1: Moderate disc bulge and moderate facet arthropathy. Moderate left and mild right neural foraminal narrowing. Lbvo-ua-skmutelt spinal canal narrowing. MRI/Spine Lumbar (Routine) IMPRESSION: 1. Moderate multilevel degenerative changes of the lumbar spine, worst at L4-5 and L5-S1 as detailed above. 2. Leftward curvature of the lumbar spine. Reading Location: [id number]
== END | disposition home or self-care (01) ==
LOC: MRI 08:00
PROVIDERS: PCP Internal Medicine; Referring Provider Student in an Organized Health Care Education/Training Program; Visit Provider Student in an Organized Health Care Education/Training Program
DX: M54.16 Radiculopathy, lumbar region (principal); M51.369 Other intervertebral disc degeneration, lumbar region without mention of lumbar back pain or lower extremity pain
CPT/HCPCS: 72148

== ENCOUNTER 2024-09-30 10:52 | Day surgery (SDC) | payer OTHER, MEDICARE, SELFPAY ==
[2024-09-29 12:26] VITALS: BMI 25.4
[2024-09-29 15:11] LABS: Anion Gap 13 (5-15); BUN 34 mg/dL (4-19); BUN/Creat Ratio 35.1 RATIO (10-20); Calcium,Total 9.8 mg/dL (7.6-11.0); Carbon Dioxide 24.1 mmol/L (21.0-32.0); Chloride 102 mmol/L (98-108); Creatinine, Serum 0.96 mg/dL (0.70-1.20); EST Glomerular Filtration Rate 61 (>60); Estimated Creatinine Clearance 39.42 ml/min (50-250); Glucose 100 mg/dL (70-99); Potassium 4.2 mmol/L (3.3-5.1); Sodium Level 140 mmol/L (133-145)
--- NOTE | 2024-09-30 08:07 | PCM.HP.BLA ---
History and Physical Date of Admission: 09/30/24 SHERRELL DELGADO, is a 79 F with a history of atrial fibrillation for which she was hospitalized and underwent a ARIS guided cardioversion. Patient presented to her PCP in May 2022 with complaints of shortness of breath with minimal exertion and leg weakness. She states her heart rates have been in the 90s while working, and increases to 140 on her recumbent exercise bike. At some point her flecainide had gotten discontinued and she was placed on amiodarone for her atrial fibrillation. She states that she is allergic to amiodarone due to worsening dyspnea on exertion. This was discontinued at her last office visit, and she was placed back on flecainide. She had been scheduled for an outpatient cardioversion on 08/06/2022, but had successfully cardioverted on her own. Patient presented to the emergency room on 08/08/2022 with strokelike symptoms. Patient presented because of facial droop, altered sensation and left sided weakness. She had not missed any doses of her Eliquis. Her heart rate was noted to be low at 38. Her metoprolol and Flecainide were placed on hold at that time. Her heart rate did improve. Her CT of the head without contrast revealed no evidence of subdural, epidural, subarachnoid hemorrhage or intraparenchymal hemorrhage. There was no obvious stroke noted. Her MRI of the brain was also negative. 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 She was later discharged from the hospital and instructed to follow with neurology for suspected stroke due to symptomatology. She states she is scheduled to see vascular-Dr. Persaud at [facility] next week. She was seen in the Emergency Room on 12/31/2022 for shortness of breath. Per EMS report she was noted be 80% on room air and placed on CPAP therapy. She received IV Lasix. Her BNP, 394.7, was elevated and her troponin was normal. Her ECG showed sinus rhythm. She was admitted and treated for respiratory failure secondary to acute on chronic congestive heart failure and suspected pneumonia. She underwent an echocardiogram on 12/31/2022 that showed ejection fraction of 60% and moderately enlarged left atrium. She was evaluated with EP at [facility] with plans to undergo ablation and Tikosyn therapy. Her flecainide was discontinued. She presented [facility] emergency department for worsening shortness of breath despite diuretic adjustment. She was transferred to [facility] for further evaluation due to upcoming ablation procedure. She underwent cardioversion and started on Tikosyn therapy. She returned to atrial fibrillation the following day and underwent a second cardioversion. After her sixth dose of Tikosyn her Qtc was noted be 500. To assist with sinus bradycardia, her metoprolol is reduced to 25 mg p.o. daily. She return to [facility] on 04/22/2024 and she proceeded with a pulsed field energy ablation, pulmonary vein isolation ablation, and cavotricuspid isthmus ablation with pulsed field energy on 04/22/[address] [facility] [address] Hernandez. She developed atrial fibrillation once with rapid atrial pacing that required cardioversion. It was thus recommend that she stay on Tikosyn. Her CT pulmonary vein study showed coronary calcification and it was also recommended to aggressively treat secondary risk factors for coronary artery disease. She underwent pulsed field ablation and right atrium/TV?IVC isthmus ablation at [facility] on 04/22/2024. She did require cardioversion during procedure. She presented to the office yesterday with concerns over rapid heart rate. She noted that her heart rates were in the 130s. EKG demonstrated atrial fibrillation with a heart rate of 133. She is here today to undergo a cardioversion. [facility] Medical History (Updated 06/03/24 @ 00:01 by Quiana Quiroga) Osteoarthritis of right hip Right hip pain Hamstring muscle strain Left hip pain Acute stroke due to ischemia Tubular adenoma of colon URI (upper respiratory infection) Chronic neck and back pain Difficulty balancing when standing Abnormal bruising Diarrhea Chest pain Heart disease Shoulder pain SOB (shortness of breath) Cancer History of DVT (deep vein thrombosis) Arthritis Panlobular emphysema Atrial fibrillation Hypertension Rotator cuff tear Tendonitis of shoulder, right Carpal tunnel syndrome Calculus of kidney Moses's esophagus Paroxysmal atrial fibrillation Chronic diastolic (congestive) heart failure 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 Cardiomyopathy in other diseases classified elsewhere Nonrheumatic aortic valve stenosis Non-rheumatic tricuspid valve insufficiency Scoliosis of cervical spine GERD (gastroesophageal reflux disease) Surgical History (Updated 04/23/24 @ 08:34 by Nagi Freeman 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 Sister No problems noted. Brother Wilsons disease Brother Wilsons disease Social History Smoking Status: Former smoker alcohol intake: never substance use type: does not use caffeine: Yes Type: coffee Number of servings: 1 what type of physical activity do you participate in: walking frequency: daily seatbelt use: always do you feel safe at home: Yes ROS Const Const: Negative for fatigue, weakness, headache(s) or frequent falls Eyes Eyes: Negative for blurry vision ENT ENT: Negative for headache(s), dizziness or Nosebleed/epistaxis Cardio Chest Pain: No Palpitations: Yes Edema: None Muscle aches with walking: None Resp Respiratory: Negative for SOB with activity, SOB at rest or SOB orthopnea\SOB lying down GI GI: Negative nausea, vomiting, heartburn, bright, red blood in stools or black,tarry stools : Negative for hematuria Musc Musc: Negative for muscle aches/ myalgia Skin Skin: Negative non-healing lesions or rash Neuro Neuro: Negative for dizziness, lightheadedness, near syncope, syncope, frequent falls, headache(s), weakness or blurry vision Endo Endo: Negative for fatigue Allergy Allergy/Immunology: Negative for rash Cardiology Exam Const Appearance: cooperative, healthy appearing, comfortable and no acute distress Nutritional Appearance: well nourished and overweight Orientation: alert, awake and oriented x3 Head Head: normal to inspection Ears: hearing grossly normal bilaterally Nose: external nose normal Face and Sinus: face symmetric Mouth: moist mucous membranes Eyes General: appearance normal, both eyes and all related structures Eyelids: eyelids normal EOM: EOM intact bilaterally Neck Neck: normal visual inspection and no JVD Carotids: normal carotid upstroke Chest Chest inspection: normal inspection of the chest, symmetric chest movement and normal respiratory effort; Negative cough Auscultation: Bilateral: Clear to Auscultation Cardio Rate: regular rate Rhythm: regular rhythm Heart sounds: S1 normal and S2 normal; Negative rub, gallop or murmur GI GI: normal to inspection Neuro General: patient alert, patient awake, patient oriented x3 and CN's II-XI intact bilaterally Skin Skin: no rashes or lesions noted Extremities Pulses: Normal: Right Posterior Tibial Pulse, Left Posterior Tibial Pulse, Right Radial Pulse and Left Radial Pulse Lower Extremity Edema: None: Bilateral Psych Psychological: normal affect Assessment & Plan Assessment/Plan (1) Persistent atrial fibrillation with RVR: PLAN: Patient has not missed any doses of her anticoagulant. She will undergo a cardioversion today and follow-up will based on outcome.
--- NOTE | 2024-09-30 12:52 | PCM.OP.PRO2 ---
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 Informed consent was obtained. Anterior-posterior pads were placed. The patient was appropriately counseled. The patient was administered 40 mg of intravenous propofol. 200 J of synchronized DC biphasic cardioversion energy were applied with prompt reversal to sinus rhythm. Patient tolerated the procedure well. Procedure findings: Successful DC cardioversion from atrial fibrillation to sinus rhythm. Follow-up as per office protocol
== END 2024-09-30 13:45 | disposition home or self-care (01) ==
PROVIDERS: PCP Internal Medicine; Referring Provider Internal Medicine Cardiovascular Disease; Visit Provider Internal Medicine Cardiovascular Disease
DX: I48.19 Other persistent atrial fibrillation (principal); I11.0 Hypertensive heart disease with heart failure; I50.32 Chronic diastolic (congestive) heart failure; Z79.01 Long term (current) use of anticoagulants; Z79.899 Other long term (current) drug therapy; Z87.891 Personal history of nicotine dependence
CPT/HCPCS: 36415; 80048; 92960; 93005

== ENCOUNTER 2024-10-25 05:55 | Day surgery (SDC) | payer OTHER, MEDICARE, SELFPAY ==
--- NOTE | 2024-10-22 11:56 | PAT.ANESEVAL ---
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 When Was Last Pacemaker Check QUESTION #4 FULL TEXT: You/Your Family Experience fever (hyperthermia) with Anesthesia Last Oral Intake Last Oral intake: Last Oral Intake NPO since Meds taken in AM with sips of water? Meds patient instructed to take am of surgery PONV PONV - cattle brander: PONV - cattle brander Female Yes 10/22/24 10:36 HX of Motion Sickness Yes 10/22/24 10:36 HX of N/V After Surgery No 10/22/24 10:36 Non-Smoker Yes 10/22/24 10:36 Duration of Surgery greater No 10/22/24 10:36 than 60 minutes Number of Risk Factors 3 10/22/24 10:36 PONV Score Moderate Risk 10/22/24 10:36 Height & Weight Height & Weight: Anesthesia: Height & Weight Height 5 ft 10/15/24 10:29 Respiratory Assessment Respiratory Assessment - cattle brander: Respiratory Tract Infection Hx - cattle brander Hx Respiratory Tract Infection No 10/22/24 10:36 STOP Sleep Apnea STOP Sleep Apnea - cattle brander: STOP Sleep Apnea - cattle brander Hx Hypertension Yes: ON MEDS 10/22/24 10:36 Hx Sleep Apnea No 10/22/24 10:36 CPAP No 08/11/23 09:13 BIPAP No 08/11/23 09:13 Do you snore loudly (louder No 10/22/24 10:36 than talking or can be heard Do you often feel tired/ No 10/22/24 10:36 fatigued/ sleepy during daytime? Has anyone observed you stop No 10/22/24 10:36 breathing during sleep? STOP Results Negative 10/22/24 10:36 QUESTION #5 FULL TEXT : Do you snore loudly (louder than talking or can be heard through closed doors)? 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 Specify any problems Hx of Preganancy in last 3 No 10/22/24 10:36 Months Nurse Filling Out Transfusion JZOLLINGE 10/22/24 10:36 & Questions: Date: 10/22/24 10/22/24 10:36 Time: 10:38 10/22/24 10:36 Patient unable to answer at this time (ie. confused, unrespo /Reproduction History /Reproductive History - cattle brander: /Reproductive Hx- cattle brander Hx Now No 10/22/24 10:36 Gestational Age (in weeks): EDC: Hx Hx Para Hx Section SAB No 10/22/24 10:36 Active Medications Active Medications: Current Medications Generic Name Dose Route Start Last Admin Trade Name Freq PRN Reason Stop Dose Admin Cefazolin Sodium 2 gm/ Sodium 110 mls @ 150 mls/hr 10/25/24 07:30 Chloride IV 10/25/24 08:13 INTRAOP ONE [facility] Medical History (Updated 10/22/24 @ 10:36 by Tiff Jaquez) Wears hearing aid Wears dentures Stroke/cerebrovascular accident Former smoker Complete AV block Presence of cardiac pacemaker Osteoarthritis of right hip Right hip pain Hamstring muscle strain Left hip pain Acute stroke due to ischemia Tubular adenoma of colon URI (upper respiratory infection) Chronic neck and back pain Difficulty balancing when standing Abnormal bruising Diarrhea Chest pain Heart disease Shoulder pain SOB (shortness of breath) Cancer History of DVT (deep vein thrombosis) Arthritis Panlobular emphysema Atrial fibrillation Hypertension Rotator cuff tear Tendonitis of shoulder, right Carpal tunnel syndrome Calculus of kidney Moses's esophagus Paroxysmal atrial fibrillation Chronic 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 100 mcg-umeclid 1 ea inhalation QDAY 08/11/23 Unknown History 62.5 mcg-vilant 25 mcg inhalat.powder (Trelegy Ellipta) fluticasone propionate 50 2 spray intranasal QDAY PRN 08/11/23 Unknown History mcg/actuation nasal allergy symptoms spray,suspension melatonin 5 mg tablet 10 mg PO HS PRN insomnia 08/11/23 Unknown History empagliflozin 10 mg tablet 10 mg PO DAILY #90 tabs 12/03/23 Unknown Rx (Jardiance) omeprazole 40 mg capsule,delayed 40 mg PO QDAY 12/22/23 Unknown History release spironolactone 25 mg tablet 25 mg PO DAILY #30 tabs 03/24/24 Unknown Rx calcium 333 mg-magnesium 133 mg-D3 1 tab PO DAILY 04/19/24 Unknown History 1.67 mcg-zinc 5 mg tablet sucralfate 100 mg/mL oral 10 ml PO ACHS PRN stoma 04/28/24 Unknown History suspension furosemide 20 mg tablet 60 mg PO QDAY 07/27/24 Unknown History apixaban 5 mg tablet 5 mg PO BID #180 tabs 09/24/24 09/30/24 Rx metoprolol succinate 25 mg 50 mg PO BID 09/29/24 09/30/24 History tablet,extended release 24 hr gabapentin 100 mg capsule 100 mg PO TID 10/22/24 Unknown History nystatin 100,000 unit/mL oral 1 ml PO .qid PRN thrush 10/22/24 Unknown History suspension Allergy/AdvReac Type Severity Reaction Status Date / Time etodolac Allergy Intermediate Other Verified 10/22/24 10:48 diltiazem HCl (From Cardizem) Allergy Swelling Verified 10/22/24 10:48 of face and neck naproxen Allergy Swelling Verified 10/22/24 10:48 (whole body) prednisone Allergy Other Verified 10/22/24 10:48 amiodarone AdvReac Severe Severe Verified 10/22/24 10:48 dyspnea after taking PO Amiodarone adhesive AdvReac Rash Verified 10/22/24 10:48 albuterol AdvReac Other Verified 10/22/24 10:48 codeine AdvReac Vomiting Verified 10/22/24 10:48 hydrocodone bitartrate (From AdvReac Vomiting Verified 10/22/24 10:48 Vicodin) morphine AdvReac Vomiting Verified 10/22/24 10:48 Family History Sister Afib Father CAD (coronary artery disease) Brother CVA (cerebral vascular accident) Mother No problems noted. Sister No problems noted. Brother Wilsons disease Brother Wilsons disease Surgical History (Updated 10/22/24 @ 10:36 by Tiff Jaquez) Hx of atrioventricular node ablation Hx of fusion of cervical spine History of radiofrequency ablation procedure for cardiac arrhythmia (07/27/15) History of left heart catheterization (03/15/13) History of cardioversion (04/15/24) Hx of cholecystectomy H/O neck surgery ovarian surgery H/O hernia repair Social History Smoking Status: Former smoker alcohol intake: never substance use type: does not use caffeine: Yes Type: coffee Number of servings: 1 what type of physical activity do you participate in: walking frequency: daily seatbelt use: always do you feel safe at home: Yes Audit: Pertinent Findings Pertinent Findings EKG Perinent findings: 09/30/2024. Sinus bradycardia 50 bpm. Sinus arrhythmia. Nonspecific ST abnormality. Echo (EF%) pertinent findings: 12/31/2022. EF 60%. Consult pertinent findings: 07/27/2024. Paroxysmal atrial fibrillation. On Eliquis. For CVA precautions. Chronic diastolic heart failure. Nonischemic cardiomyopathy. EF 45% March 2024 echo. Pulmonary function results/spirometer pertinent findings: Chest x-ray 04/12/2024. Interstitial fibrotic changes of lungs. No pleural abnormality. COPD/emphysema. Normal heart size. Recommendation Anesthesia Recommendation Anesthesia recommendation: OPTIMIZED for anesthesia
[2024-10-25] VITALS (7 sets, daily range): BP systolic 103–127; BP diastolic 66–82; PULSE 89–90; RESP 14–16; TEMP 36.3–36.4; O2SAT 92–97; BMI 25.8
--- OUTSIDE RECORDS SUMMARY | 2024-10-25 06:02 | XMS RPT_ITS | CCD ---
Author Organization [facility] Care Team Providers Care Comprehensive Advisor Name Role Phone Maxim Ibarra S Unavailable Minerva Shaver MD Primary Care Provider Dr. Mnierva Shaver Primary Care Provider Dr. Minerva Shaver Referring Provider Dr. Jovanni Schofield Attending Provider [phone] RENEE Negron Attending Provider Maxim Ibarra S Unavailable Minerva Shaver MD Primary Care Provider Maxim Ibarra S Unavailable Dr. Minerva Shaver Primary Care Provider Dr. Minerva Shaver Referring Provider Dr. Jovanni Schofield Attending Provider Dr. Maxim Ibarra Attending Provider Dr. Agustin Alcantara Attending Provider [phone] RENEE Maldonado Attending Provider Dr. Minerva Shaver Primary Care Provider Dr. Minerva Shaver Referring Provider RENEE Negron Attending Provider Dr. Jovanni Schofield Attending Provider Dr. Maxim Ibarra Attending Provider Dr. Agustin Alcantara Attending Provider RENEE Maldonado Attending Provider Dr. Maxim Ibarra Referring Provider [phone] Fred, Dr. Pan Other Provider Maxim Ibarra Unavailable Minerva Shaver MD Primary Care Provider Dr. Minerva Shaver Primary Care Provider Dr. Minerva Shaver Referring Provider Dr. Minerva Shaver Primary Care Provider Fred, Dr. Pan Attending Provider Dr. Minerva Shaver Referring Provider Dr. Jovanni Schofield Attending Provider Dr. Minerva Shaver Primary Care Provider Fred, Dr. Pan Attending Provider [phone] Maxim Ibarra Referring Provider [phone] Fred, Dr. Pna Other Provider Dr. Minerva Shaver Referring Provider Dr. Jovanni Schofield Attending Provider Dieudonne ALEXANDER, DANYA Diggs Attending Provider Dr. Minerva Shaver Primary Care Provider Fred, Dr. Pan Attending Provider [phone] Maxim Ibarra Referring Provider [phone] Wilian Dempsey Emergency Provider Dr. Farhad Hall Admit Provider Dr. Farhad Hall Attending Provider Dr. Farhad Hall Other Provider Minerva Shaver MD Primary Care Provider Dr. Mike Lynne Attending Provider Dr. Mike Lynne Referring Provider DIANNA BALLARD Referring Unavailable OLDER, DIANNA Admitting Unavailable PERLITA FLOWERS Attending Unavailable MINERVA SHAVER Primary Care Unavailable MINERVA SHAVER Primary Care Unavailable PERLITA FLOWERS Attending Unavailable Sindhu, Dr. Palma Primary Care Provider Sindhu, Dr. Palma Referring Provider Dieudonne FORMULATOR, FORMULATOR-C Caterina Attending Provider Dr. Jovanni Schofield Attending Provider Maxim Ibarra S Unavailable [place], Dr. Palma Primary Care Provider Sindhu, Dr. Palma Referring Provider Dieudonne FORMULATOR, FORMULATOR-C Caterina Attending Provider Sindhu, Dr. Palma Primary Care Provider Sindhu, Dr. Palma Referring Provider Dr. Dena Workman Attending Provider Dr. Sohan Shelton Emergency Provider Dr. Stephanie Scales Admit Provider Dr. Stephanie Scales Other Provider Dr. Josep Vasquez Attending Provider Unavailable Dr. Josep Vasquez Other Provider Unavailable Maxim Ibarra MD Unavailable Sindhu, Dr. Palma Primary Care Provider Dr. Dena Workman Attending Provider Dr. Sohan Shelton Emergency Provider Dr. Stephanie Scales Admit Provider Dr. Stephanie Scales Other Provider Dr. Josep Vasquez Attending Provider Unavailable Dr. Josep Vasquez Other Provider Unavailable Dr. Minerva Shaver Referring Provider Pete FORMULATOR, FORMULATOR-Yves Carpio Attending Provider Sindhu, Dr. Palma Primary Care Provider Dr. Maxim Ibarra Attending Provider Fred, Dr. Maxim Other Provider Fred, Dr. Pan Referring Provider Dr. Varun Montes Attending Provider OK WALKER Attending Unavailable MINERVA SHAVER Primary Care Unavailable KATHERYN STOKES Referring Unavailable Dr. Minerva Shaver Primary Care Provider Dr. Maxim Ibarra Attending Provider Dr. Maxim Ibarra Other Provider Fred, Dr. Pan Referring Provider Dr. Varun Montes Attending Provider Dr. 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 Minerva Shaver MD Primary Care Provider Dr. Janes Zamudio DO Attending Provider Dr. Janes Zamudio DO Emergency Provider Dr. Minerva Shaver MD Referring Provider Roof FORMULATOR-CNagi Attending Provider Roof FORMULATOR-CNagi Referring Provider Dr. Saul Guzman DO Attending Provider Dr. Saul Guzman DO Emergency Provider Tiffanie HICKS, Dr. Anne Attending Provider Tiffanie HICKS, Dr. Anne Referring Provider Blaire PA-C, Davin L Unavailable Ivette PA-Yves, Fco Unavailable Sindhu HICKS, Dr. Palma Primary Care Provider Sindhu HICKS, Dr. Palma Referring Provider Pete FORMULATOR-CNagi Attending Provider Ada Winkler Attending Provider Ada Winkler Referring Provider Sindhu HICKS, Dr. Palma Primary Care Provider Sindhu HICKS, Dr. Palma Referring Provider Pete FORMULATOR-CNagi Attending Provider Ada Winkler Other Provider Catie HICKS, Dr. Wray Attending Provider Sindhu HICKS, Dr. Palma Primary Care Provider Dr. Saul Guzman DO Attending Provider Dr. Saul Guzman DO Emergency Provider Maxim Ibarra MD Unavailable William TERRAZAS, Maya Unavailable Fred HICKS, Dr. Pan Attending Provider Dr. Maxim Ibarra MD Referring Provider Dr. Maxim Ibarra MD Other Provider Cande Rasmussen Attending Provider Unavailable Aleks HICKS, Dr. Archibald Attending Provider MINERVA SHAVER Primary Care Unavailable ALLI HERNANDEZ Admitting Unavailable ALLI HERNANDEZ Attending Unavailable ALLI HERNANDEZ Attending Unavailable ROOF, NAGI Referring Unavailable GANTA, MINERVA C Primary Care Unavailable SAVONA, ALLI J Referring Unavailable GANTA, MINERVA C Primary Care Unavailable SAVONA, ALLI J Attending Unavailable SAVONA, ALLI J Referring Unavailable GANTA, MINERVA C Primary Care Unavailable SAVONA, ALLI J Attending Unavailable GANTA, MINERVA C Primary Care Unavailable GANTA, MINERVA C Referring Unavailable ERLINDA CASEY Attending Unavailable GANTA, MINERVA C Primary Care Unavailable ERLINDA CASEY Referring Unavailable GANTA, MINERVA C Primary Care Unavailable GANTA, MINERVA C Primary Care Unavailable GANTA, MINERVA C Primary Care Unavailable TAYLOR MCKEE Admitting Unavailable CONSULT, CARDIOLOGY - EP Consulting Unavail able ERLINDA CASEY Referring Unavailable PEDRO BEAL Attending Unavailable JANES ZAMUDIO Referring Unavailable CONSULT, CARDIOLOGY - EP Consulting Unavail able TOÑA PERSAUD Admitting Unavailable PERSAUDTOÑA Attending Unavailable GANTA, MINERVA C Primary Care Unavailable Roof FORMULATOR, Naig Carpio Referring Unavailable Roof FORMULATOR, Nagi Carpio Attending Unavailable Ganta, Minerva Primary Care Unavailable Ganta, Minerva Primary Care Unavailable Heide, Ada Attending Unavailable Heide, Ada Referring Unavailable Dragan Fink Attending Unavailable Ganta, Minerva Referring Unavailable Ganta, Minerva Primary Care Unavailable Ganta, Minerva Primary Care Unavailable Heide, Ada Referring Unavailable Heide, Ada Attending Unavailable Roof FORMULATOR, Nagi H Attending Unavailable Roof FORMULATOR, Nagi H Referring Unavailable Ganta, Minerva Primary Care Unavailable Fred, [place] Referring Unavailable Fred, [place] Attending Unavailable Ganta, Minerva Primary Care Unavailable Ganta, Minerva Primary Care Unavailable Fred, Maxim Attending Unavailable Fred, Maxim Referring Unavailable Ganta, Minerva Primary Care Unavailable Basali, Ayman Attending Unavailable Basali, Ayman Referring Unavailable Ganta, Minerva Primary Care Unavailable Heide, Ada Attending Unavailable Heide, Ada Referring Unavailable Ganta, Minerva Primary Care Unavailable Saul Guzman Attending Unavailable Roof FORMULATOR, Nagi H Referring Unavailable Roof FORMULATOR, Nagi Carpio Attending Unavailable Ganta, Minerva Primary Care Unavailable Ganta, Minerva Primary Care Unavailable Basali, Ayman Attending Unavailable Basali, Ayman Referring Unavailable Susan Negron Referring Unavail able Susan Negron Attending Unavail able Ganta, Minerva Primary Care Unavailable Basali Ayman Referring Unavailable Ganta, Minerva Primary Care Unavailable Omid Moreno Attending Unavailable Dragan Fink Attending Unavailable Aleks, Dragan Referring Unavailable Ganta, Minerva Primary Care Unavailable Ganta, Minerva Primary Care Unavailable Janes Zamudio Attending Unavailable Roof FORMULATOR, Nagi H Referring Unavailable Roof FORMULATOR, Nagi Carpio Attending Unavailable Ganta, Minerva Primary Care Unavailable Roof FORMULATOR, Nagi Carpio Attending Unavailable Ganta, Minerva Referring Unavailable Ganta, Minerva Primary Care Unavailable Ganta, Minerva Referring Unavailable Ganta, Minerva Primary Care Unavailable Gianni Jaegertlyn Attending Unavailable Roof FORMULATOR, Nagi Carpio Attending Unavailable Ganta, Minerva Referring Unavailable Ganta, Minerva Primary Care Unavailable Ganta, Minerva Referring Unavailable Cande Rasmussen Attending Unavailable Ganta, Minerva Primary Care Unavailable Roof FORMULATOR, Nagi Carpio Attending Unavailable Ganta, Minerva Primary Care Unavailable Ganta, Minerva Referring Unavailable Ganta, Minerva Primary Care Unavailable Saul Guzman Attending Unavailable Roof FORMULATOR, Nagi Carpio Attending Unavailable Ganta, Minerva Referring Unavailable Ganta, Minerva Primary Care Unavailable Fred, [place] Referring Unavailable Fred, Maxim Consulting Unavailable Fred, [place] Attending Unavailable Ganta, Minerva Primary Care Unavailable Ganta, Minerva Primary Care Unavailable Fred, [place] Attending Unavailable Fred, Maxim Referring Unavailable Fred, [place] Consulting Unavailable Ganta, Minerva Primary Care Unavailable Heide, Ada Referring Unavailable Heide, Ada Consulting Unavailable AhmaNils lawson Attending Unavailable Nolt Risa Attending Unavailable Ganta, Minerva Primary Care Unavailable Varun Montes Attending Unavailable Fred, [place] Referring Unavailable Fred, Maxim Consulting Unavailable Ganta, Minerva Primary Care Unavailable Farhad Whitt Attending Unavailable Susan Negron Referring Unavail able Ganta, Minerva Primary Care Unavailable Roof FORMULATOR, Nagi Caprio Attending Unavailable Ganta, Minerva Referring Unavailable Ganta, Minerva Primary Care Unavailable Roof FORMULATOR, Nagi Carpio Attending Unavailable Ganta, Minerva Referring Unavailable Ganta, Minerva Primary Care Unavailable Roof FORMULATOR, Nagi Carpio Attending Unavailable Ganta, Minerva Referring Unavailable Ganta, Minerva Primary Care Unavailable Roof FORMULATOR, Nagi H Referring Unavailable Roof FORMULATOR, Nagi Carpio Attending Unavailable Ganta, Minerva Primary Care Unavailable GANTA, MINERVA Primary Care Unavailable GANTA, MINERVA Primary Care Unavailable FCO VIDALES Attending Unavailable GANTA, MINERVA Primary Care Unavailable LAITH MONTES Attending Unavailable GANTA, MINERVA Primary Care Unavailable GANTA, MINERVA Attending Unavailable GANTA, MINERVA Primary Care Unavailable GANTA, MINERVA Primary Care Unavailable OLDER, DIANNA Referring Unavailable GANTA, MINERVA Primary Care Unavailable OLDER, DIANNA Attending Unavailable GANTA, MINERVA Primary Care Unavailable BROWNLAITH Referring Unavailable BROWNLAITH Attending Unavailable GANTA, MINERVA Primary Care Unavailable BROWNLAITH Referring Unavailable OLDER, DIANNA Attending Unavailable GANTA, MINERVA Primary Care Unavailable GANTA, MINERVA Primary Care Unavailable OLDER, DIANNA Attending Unavailable GANTA, MINERVA Primary Care Unavailable LAITH MONTES Referring Unavailable GANTA, MINERVA Primary Care Unavailable CLUTTER, NADIR Referring Unavailable GANTA, MINERVA Primary Care Unavailable OLDER, DIANNA Attending Unavailable OLDER, DIANNA Attending Unavailable GANTA, MINERVA Primary Care Unavailable GANTA, MINERVA Referring Unavailable GANTA, MINERVA Primary Care Unavailable GANTA, MINERVA Primary Care Unavailable OLDER, DIANNA Attending Unavailable Allergies Allergy Classification Reported Allergen(s) Allergy Type Date of Onset Reaction(s) Facility Adhesive Tape (1 source) Adhesive Tape Substance Allergy 03-31-20 23 Rash [facility] Work Phone: Calcium Channel Blockers (1 source) dilTIAZem Drug Allergy 01-19-20 15 Swelling [facility] Work Phone: guaiFENesin / Phenylephrine (1 source) guaiFENesin / Phenylephrine Drug Allergy 03-06-20 07 Rash [facility] NSAIDs (3 sources) Etodolac Drug Allergy 01-30-20 11 Other: See Comments, Swelling [facility] Opioid Agonists (1 source) Codeine Drug Allergy 01-22-20 06 Vomiting [facility] raNITIdine (1 source) raNITIdine Drug Allergy 05-29-19 17 Rash, [facility] Work Phone: Serotonin Reuptake Inhibitors (SSRIs) (1 source) traZODone Drug Allergy 08-20-19 15 Other: See Comments [facility] Work Phone: (20 sources) Codeine; Translations: [CODEINE] Drug Allergy 01-22-20 06 Vomiting, Nausea and vomiting [facility] (20 sources) dilTIAZem; Translations: [DILTIAZEM HCL] Drug Allergy 01-19-20 15 Swelling [facility] Work Phone: (20 sources) Etodolac; Translations: [ETODOLAC] Drug Allergy 07-06-19 13 Other: See Comments, Palpitations [facility] (20 sources) guaiFENesin / Phenylephrine; Translations: [PHENYLEPHRINE- AIFENESIN] Drug Allergy 03-06-20 07 Rash [facility] Work Phone: (20 sources) meloxicam; Translations: [MELOXICAM] Drug Allergy 05-25-19 13 Other: See Comments, Palpitations [facility] Work Phone: (20 sources) Naproxen; Translations: [NAPROXEN] Drug Allergy 01-30-20 11 Swelling [facility] Work Phone: (20 sources) raNITIdine; Translations: [RANITIDINE HCL] Drug Allergy 05-29-19 17 Rash, Swelling [facility] Work Phone: (20 sources) traZODone; Translations: [TRAZODONE] Drug Allergy 08-20-19 15 Other: See Comments, Other (See Comments) [facility] Work Phone: (20 sources) surgical tape adhesives [Other] Propensity to adverse reactions 09-01-19 09 Rash [facility] Work Phone: (20 sources) Adhesive agent; Translations: [ADHESIVE] Propensity to adverse reactions 10-12-19 [address] [facility] (20 sources) Albuterol Drug Allergy 12-22-19 [address] [facility] (20 sources) Amiodarone Drug Allergy 12-22-19 22 Severe dyspnea after taking PO Amiodarone [facility] (20 sources) HYDROcodone; Translations: [hydrocodone bitartrate] Drug Allergy 12-22-19 [address] [facility] (20 sources) Morphine Drug Allergy 12-22-19 [address] [facility] (1 source) steroid Allergy to substance 12-22-19 22 causes Afib [facility] Work Phone: (20 sources) predniSONE Drug Allergy 03-06-20 [address] [facility] Comment on above: a-fib (9 sources) dilTIAZem; Translations: [DILTIAZEM] Drug Allergy 01-19-20 15 Swelling, Anaphylaxis [facility] (20 sources) Adhesive Tape; Translations: [ADHESIVE TAPE (ROSINS)] Allergy to substance 03-31-20 23 Rash [facility] Work Phone: (4 sources) Acetaminophen / HYDROcodone Drug Allergy 04-13-20 24 Nausea and Vomiting [facility] (4 sources) Aluminum aspirin Drug Allergy 04-13-20 24 Dizzy/Vertigo [facility] (4 sources) Etodolac Propensity to adverse reactions to drug 03-08-20 24 [facility] (4 sources) meloxicam Drug Allergy 03-08-20 24 [facility] (4 sources) Phenylalanine Drug Allergy 03-08-20 24 [facility] (4 sources) raNITIdine Drug Allergy 03-08-20 24 [facility] (4 sources) *Adhesive Tape Propensity to adverse reactions 03-08-20 24 Rash [facility] (1 source) Albuterol Drug Allergy 10-23-[address] [facility] (1 source) Amiodarone Drug Allergy 10-23-[address] [facility] (1 source) Codeine Drug Allergy 10-23-[address] [facility] (1 source) dilTIAZem Drug Allergy 10-23-[address] [facility] (1 source) Etodolac Drug Allergy 10-23-[address] [facility] (1 source) Morphine Drug Allergy 10-23-[address] [facility] (1 source) Naproxen Drug Allergy 10-23-[address] [facility] (1 source) predniSONE Drug Allergy 10-23-[address] [facility] Medications Current Medications Medication Drug Class(es) Dates Sig (Normalized) Sig (Original) amoxicillin 875 mg / clavulanate 125 mg oral tablet (20 sources) Penicillin-class Antibacterial Start: 07-15-2024 End: 07-22-2024 take 1 tablet by mouth every twelve hours amoxicillin-clav ulanate potassium (AUGMENTIN) 875-125 mg per tablet Take 1 tablet by mouth every 12 hours for 7 days. 14 tablet 07/15/2024 07/22/2024 Active Start: 09-30-2022 End: 10-10-2022 take 1 tablet by mouth twice daily amoxicillin-clavulanic acid (AUGMENTIN) 875-125 mg per tablet Take 1 tablet by mouth twice daily for 10 days. 20 tablet 0 09/30/2022 10/10/2022 Start: 03-06-2022 End: 03-27-2022 Amoxicillin-Pot Clavulanate 875-125 mg tablet Discontinued 1 {tbl} PO TWICE A DAY March 06, 2022 12:00am March 27, 2022 2:12pm Start: 03-06-2022 End: 03-27-2022 take 1 tablet by mouth twice daily Amoxicillin-Pot Clavulanate Discontinued 1 TABLET PO TWICE A DAY March 06, 2022 12:00am March 27, 2022 2:12pm Comment on above: Take 1 tablet by [facility] twice daily for 10 days. apixaban 5 mg oral tablet (20 sources) Factor Xa Inhibitor Start: 08-11-2024 End: 10-08-2024 5 mg, Oral, EVERY 12 HOURS, First dose on Fri10/01/24 at 2230, Until Discontinued, Due to the rapid onset of action of apixaban, no overlap is needed with other anticoagulants (e.g. enoxaparin, heparin)., Indications: Atrial Fibrillation, On hold since Fri10/04/2024 at 0852 until manually unheld Start: 04-22-2024 End: 04-22-2024 5 mg, Oral, EVERY 12 HOURS, First dose on Meme 04/22/24 at 1500, Until Discontinued, Due to the rapid onset of action of apixaban, no overlap is needed with other anticoagulants (e.g. enoxaparin, heparin)., Indications: Atrial Fibrillation, Post-op/Post-Proc Start: 04-13-2024 End: 04-17-2024 5 mg, Oral, EVERY 12 HOURS, First dose on 04/13/24 at 0900, Until Discontinued, Due to the rapid onset of action of apixaban, no overlap is needed with other anticoagulants (e.g. enoxaparin, heparin)., Indications: Atrial Fibrillation Start: 06-21-2020 End: 09-24-2024 take 1 tablet by mouth twice daily Apixaban 5 mg tablet Discontinued 5 mg PO TWICE A DAY 180 June 25, 2024 5:10pm September 24, 2024 3:30pm Start: 11-25-2019 End: 05-15-2020 take 1 tablet by mouth twice daily Apixaban (Eliquis) 5 mg tablet Discontinued 5 mg PO TWICE A DAY 180 December 21, 2019 6:54pm May 15, 2020 12:15pm Comment on above: Take by mouth twice daily. Bacillus coagulans / Inulin (4 sources) take 1 capsule by mouth once daily Bacillus Coagulans-Inulin (PROBIOTIC-PREBIOTIC PO) Take 1 capsule by mouth daily. Suspended take 1 capsule by mouth once mikaela ly Bacillus Coagulans-Inulin (PROBIOTIC- PREBIOTIC PO) Take 1 capsule by mouth daily. Active benzonatate 100 mg oral capsule (18 sources) Non-narcotic Antitussive Start: 07-15-2024 take 1 capsule by mouth every eight hours as needed benzonatate (TESSALON PERLE) 100 mg capsule Take 1 capsule by mouth three times a day as needed. 15 capsule 07/15/2024 Active Start: 07-05-2024 End: 07-12-2024 take 1 capsule by mouth three times daily as needed for cough benzonatate (TESSALON PERLE) 100 mg capsule Indications: Pneumonia of right upper lobe due to infectious organism Take 1 capsule by mouth three times a day as needed for cough for up to 7 days. 21 capsule 07/05/2024 07/12/2024 Active bifidobacterium infantis 10.5 mg chewable tablet (20 sources) Start: 12-27-2019 take 1 tablet by mouth once daily Bifidobacterium infantis (ALIGN) 10.5 mg (10 million cell) chew Take 1 tablet by mouth once daily. 12/27/2019 Active Comment on above: Take 1 tablet by wendy th once daily. Calc Carb-Mag Ox-D3-Zinc Gluc 333 mg-133 mg- 1.67 mcg-5 mg tablet (9 sources) Start: 04-19-2024 take 1.67 tablets by mouth once daily Calc Carb-Mag Ox-D3-Zinc Gluc 333 mg-133 mg- 1.67 mcg-5 mg tablet Active 1 {tbl} PO DAILY April 19, 2024 1:00am Calcium Carb-Cholecalciferol (CALCIUM 500 + D PO) (3 sources) take 1 tablet by mouth once daily Calcium Carb-Cholecalciferol (CALCIUM 500 + D PO) Take 1 tablet by mouth daily. Suspended take 1 tablet by mouth once mark y Calcium Carb-Cholecalciferol (CALCIUM 500 + D PO) Take 1 tablet by mouth daily. Active Calcium Carbonate / vitamin D3 (20 sources) take 1000 mg by mout h five times daily CALCIUM CARBONATE/VITAMIN D3 (VITAMIN D-3 ORAL) Take 1,000 mg by mouth five times daily. Active take 1000 mg by mout h five times daily CALCIUM CARBONATE/VITAMIN D3 (VITAMIN D- 3 ORAL) Take 1,000 mg by mouth five times daily. 0 Active Comment on above: Take 1,000 mg by wendy th five times daily. CALCIUM MAGNESIUM ZINC PO (4 sources) take 1 tablet by mouth once daily CALCIUM MAGNESIUM ZINC PO Take 1 tablet by mouth daily. Suspended take 1 tablet by mouth once mark y CALCIUM MAGNESIUM ZINC PO Take 1 tablet by mouth daily. Active [id number] ORAL (20 sources) CALCIUM-MAGNESIU M-ZINC ORAL Take by mouth. Active CALCIUM-MAGNESIU M-ZINC ORAL Take by mouth . 0 Active CALCIUM-MAGNESIU M-ZINC ORAL Take by mouth. 0 Active Comment on above: Take by mouth. diclofenac sodium 75 mg delayed release oral tablet (20 sources) Nonsteroidal Anti-inflammatory Drug Start: 12-30-2023 diclofenac, EC, (VOLTAREN) 75 mg EC tablet Indications: Generalized arthritis Takes once daily PRN for acute pain/inflammation. Take with food. 30 tablet 12/30/2023 Active Start: 08-11-2023 End: 04-19-2024 take 1 tablet by mouth every other day Diclofenac Sodium 75 mg tablet,delayed release (DR/EC) Discontinued 75 mg PO every other day August 11, 2023 12:00am April 19, 2024 10:08am Start: 03-04-2023 End: 12-15-2023 diclofenac, EC, (VOLTAREN) 7 5 mg EC tablet Indications: Generalized arthritis Takes once daily PRN for acute pain/inflammation. Take with food. 30 tablet 1 07/14/2023 12/15/2023 Discontinued (Discontinued by another Health Care Provider) Start: 10-31-2022 End: 03-04-2023 diclofenac, EC, (VOLTAREN) 7 5 mg EC tablet Indications: Generalized arthritis Can use every other day for pain/inflammation. Take with food. 30 tablet 1 10/31/2022 03/04/2023 Discontinued Start: 07-10-2021 End: 01-21-2022 diclofenac, EC, (VOLTAREN) 7 5 mg EC tablet Indications: Generalized arthritis Can use every other day for pain/inflammation. Take with food. 30 tablet 2 01/21/2022 Active Start: 06-25-2021 take 75 mg by mouth every other day Diclofenac Sodium Active 75 MG PO .COMPLEX June 25, 2021 1:00am 75 mg PO every other day; Start: 02-26-2021 End: 03-28-2021 take 1 tablet by mouth twice daily Diclofenac Sodium 50 mg tablet,delayed release (DR/EC) Discontinued 50 mg PO TWICE A DAY 60 30 February 26, 2021 12:00am March 27, 2021 1:00am March 28, 2021 1:01am End: 04-13-2024 DICLOFENAC PO Take 75 mg by mouth. 04/13/2024 Discontinued (Medication Reconciliation (suppress cancel msg)) Comment on above: Can use every other day for pain/inflammation. Take with food. Takes once daily PRN for acute pain/inflammation. Take with food. docusate sodium 100 mg oral capsule (3 sources) Start: 01-02-20 End: 02-01-20 take 1 capsule by mouth twice daily docusate sodium (COLACE) 100 mg capsule Take 1 capsule by mouth twice daily. 60 capsule 2 01/01/2022 01/31/2022 Active Comment on above: Take 1 capsule by [facility] twice daily. doxycycline hyclate 100 mg oral tablet (20 sources) Tetracycline-class Drug Start: 07-05-19 End: 07-16-19 take 1 tablet by mouth twice daily doxycycline (VIBRA-TABS) 100 mg tablet Indications: Pneumonia of right upper lobe due to infectious organism Take 1 tablet by mouth two times a day for 10 days. 20 tablet 07/05/2024 07/15/2024 Active Start: 03-31-2023 End: 04-10-2023 take 1 tablet by mouth twice daily doxycycline (VIBRA-TABS) 100 mg tablet Take 1 tablet by mouth two times a day for 10 days. 20 tablet 0 03/31/2023 04/10/2023 Active Start: 01-27-2023 End: 02-03-2023 take 1 capsule by mouth twice daily doxycycline hyclate (VIBRAMYCIN) 100 mg capsule Take 1 capsule by mouth twice daily for 7 days. 14 capsule 0 01/27/2023 02/03/2023 Start: 09-30-2022 End: 12-31-2022 take 1 tablet by mouth twice daily Doxycycline Hyclate 100 mg tablet Discontinued 100 mg PO TWICE A DAY October 03, 2022 12:00am December 31, 2022 2:09am X 10 days Start: 03-06-2022 End: 03-27-2022 take 1 capsule by mouth twice daily Doxycycline Monohydrate 100 mg capsule Discontinued 100 mg PO TWICE A DAY March 06, 2022 12:00am March 27, 2022 2:14pm Comment on above: Take 1 tablet by [facility] twice daily for 10 days. Take 1 capsule by mo [facility] twice daily for 7 days. Take 1 tablet by wendy two times a day for 10 days. empagliflozin 10 mg oral tablet (20 sources) Sodium-Glucose Cotransporter 2 Inhibitor Start: 02-05-20 End: 12-03-19 take 1 tablet by mouth once daily JARDIANCE 10 mg tablet Take 10 mg by mouth once daily. 02/04/2023 Active Comment on above: Take 10 mg by mouth once daily. fluticasone propionate 0.05 mg/actuat metered dose nasal spray (20 sources) Corticosteroid Start: 08-10-19 End: 10-09-19 take 2 spray(s) by mouth once daily fluticasone (FLONASE) 50 mcg/actuation nasal spray Use 2 Sprays in each nostril once daily. Rinse mouth after use. 1 Each 5 08/09/2024 Active Start: 08-11-2023 Fluticasone Pr opionate 50 mcg/actuation spray,suspension Active 2 NMA INTRANASAL daily as needed for allergy symptoms August 11, 2023 12:00am Start: 08-11-2023 Fluticasone Pr opionate Active 2 SPRAY INTRANASAL daily August 11, 2023 12:00am Start: 03-31-2023 End: 08-06-2024 take 2 spray(s) by mouth once daily fluticasone (FLONASE) 50 mcg/actuation nasal spray Use 2 Sprays in each nostril once daily. Rinse mouth after use. 1 Each 5 03/31/2023 08/06/2024 Discontinued Comment on above: Use 2 Sprays in each nostril once daily. Rinse mouth after use. 30 actuat fluticasone furoate 0.1 mg/actuat / umeclidinium 0.0625 mg/actuat / vilanterol 0.025 mg/actuat dry powder inhaler (20 sources) Anticholinergic, Corticosteroid, beta2-Adrenergic Agonist Start: 08-11-2023 Rktuyzgqsym-Bcwkeyaet-O ilanter (Trelegy Ellipta) 100-62.5-25 mcg blister with device Active 1 NMA INHALATION daily August 11, 2023 12:00am Start: 08-11-2023 Fluticasone-Um eclidin-Vilanter (Trelegy Ellipta) 100-62.5-25 mcg blister with device Active 1 EACH INHALATION daily August 11, 2023 12:00am Start: 08-04-2023 End: 06-17-2024 take 1 puff(s) by inhalation once daily iwbpguyxqbq-jcfuwxttz-bbtlcfaz (TRELEGY ELLIPTA) 100-62.5-25 mcg inhalation powder Inhale 1 Puff as instructed once daily. 1 Each 06/17/2024 Active Start: 01-27-2023 End: 08-02-2023 take 1 puff(s) by inhalation once daily wdkrqrwxgdz-esyxlqrfs-vnykuntp (TRELEGY ELLIPTA) 100-62.5-25 mcg inhalation powder Inhale 1 Puff as instructed once daily. 1 Each 5 01/27/2023 08/02/2023 Discontinued Comment on above: Inhale 1 Puff as ins tructed once daily. ibuprofen 600 mg oral tablet (2 sources) Nonsteroidal Anti-inflammatory Drug Start: 01-02-20 End: 01-09-20 take 1 tablet by mouth every six hours as needed ibuprofen (MOTRIN) 600 mg tablet Take 1 tablet by mouth every 6 hours as needed for pain for up to 7 days. 28 tablet 2 01/01/2022 01/08/2022 Active Comment on above: Take 1 tablet by wendy th every 6 hours as needed for pain for up to 7 days. 200 actuat ipratropium bromide 0.017 mg/actuat metered dose inhaler (20 sources) Anticholinergic Start: 01-24-20 take 2 puff(s) by inhalation every six hours as needed for wheezing Ipratropium (ATROVENT) 17 mcg/actuation inhaler Inhale 2 Puffs as instructed every 6 hours as needed for wheezing/shortness of breath. 1 Each 1 01/23/2023 Active Ipratropium 17 M CG/ACT Aero Soln inhaler Inhale 2 puffs every 6 hours. max 12 inhalations/day Active Comment on above: Inhale 2 Puffs as in structed every 6 hours as needed for wheezing/shortness of breath. 24 hr metoprolol succinate 50 mg extended release oral tablet (20 sources) beta-Adrenergic Karson Start: 10-02-2024 End: 10-08-2024 75 mg, Oral, EVERY 12 HOURS, First dose (after last modification) on 10/02/24 at 2100, Until Discontinued, Slow release product. Do not crush. Extended release can be cut in half. Start: 10-02-2024 End: 10-02-2024 25 mg, Oral, ONCE, 1 dose, O n 10/02/24 at 1000, Slow release product. Do not crush. Extended release can be cut in half. Start: 10-01-2024 End: 10-08-2024 take 5 mg intravenously every six hours as needed 5 mg, Intravenous, EVERY 6 HOURS NEEDED, Starting on Fri10/01/24 at 2340, Until Fri10/08/24 at 1539, Sustained HR above 130 Start: 10-01-2024 End: 10-01-2024 5 mg, Intravenous, ONCE, 1 d ose, On Fri10/01/24 at 2300 Start: 10-01-2024 End: 10-02-2024 50 mg, Oral, EVERY 12 HOURS, First dose on Fri10/01/24 at 2130, Until Discontinued, Slow release product. Do not crush. Extended release can be cut in half. Start: 09-30-2024 End: 10-08-2024 take 1.5 tablets by mouth once daily Metoprolol succinate 50 MG tablet XL Take 1.5 tablets by mouth daily. 135 tablet 3 09/30/2024 10/08/2024 Discontinued Start: 09-29-2024 Metoprolol Suc cinate 25 mg tablet extended release 24 hr Active 50 mg PO TWICE A DAY September 29, 2024 11:27am Start: 09-29-2024 End: 09-29-2024 Metoprolol Succinate 25 mg t ablet extended release 24 hr Discontinued 50 mg PO daily September 29, 2024 11:02am September 29, 2024 11:27am Start: 04-19-2024 End: 09-29-2024 take 1 tablet by mouth once daily Metoprolol Succinate 25 mg tablet extended release 24 hr Discontinued 25 mg PO daily April 19, 2024 10:09am September 29, 2024 11:02am Start: 04-17-2024 End: 04-17-2024 take 1 tablet by mouth once daily Metoprolol succinate 25 MG tablet XL Take 1 tablet by mouth daily. 30 tablet 3 04/17/2024 Active Start: 04-16-2024 End: 04-17-2024 25 mg, Oral, EVERY 12 HOURS, First dose (after last modification) on Fri04/16/24 at 0900, Until Discontinued, Slow release product. Do not crush. Extended release can be cut in half. Hold for HR Start: 04-15-2024 End: 04-16-2024 50 mg, Oral, EVERY 12 HOURS, First dose (after last modification) on Fri04/15/24 at 2100, Until Discontinued, Slow release product. Do not crush. Extended release can be cut in half. Hold for HR Start: 04-14-2024 End: 04-15-2024 75 mg, Oral, 2 TIMES DAILY, First dose (after last modification) on Fri04/14/24 at 2100, Until Discontinued, Slow release product. Do not crush. Extended release can be cut in half. Hold for HR Start: 04-14-2024 End: 04-14-2024 25 mg, Oral, ONCE, 1 dose, O n Fri04/14/24 at 1300, Slow release product. Do not crush. Extended release can be cut in half. Start: 04-13-2024 End: 04-14-2024 25 mg, Oral, 2 TIMES DAILY, First dose (after last modification) on Fri04/13/24 at 2100, Until Discontinued, Slow release product. Do not crush. Extended release can be cut in half. Hold for HR Start: 03-16-2024 End: 04-19-2024 Metoprolol Succinate 25 mg t ablet extended release 24 hr Discontinued 50 mg PO TWICE A DAY March 16, 2024 9:49am April 19, 2024 10:12am Start: 01-28-2024 End: 03-16-2024 take 1 tablet by mouth twice daily Metoprolol Succinat e 25 mg tablet extended release 24 hr Discontinued 25 mg PO TWICE A DAY January 28, 2024 12:00am March 16, 2024 9:50am Start: 09-29-2023 End: 01-28-2024 take 1 tablet by mouth twice daily metoprolol succinat e ER (TOPROL XL) 50 mg 24 hr tablet Take 1 tablet by mouth two times a day. 09/29/2023 Active Start: 05-19-2023 End: 04-19-2024 take 1 tablet by mouth twice daily Metoprolol Succinat e 50 mg tablet extended release 24 hr Discontinued 50 mg PO TWICE A DAY 180 July 17, 2023 3:54pm December 11, 2023 9:33am Start: 02-04-2023 End: 05-19-2023 take 4 tablets by mouth twice daily Metoprolol Succinate 50 mg tablet extended release 24 hr Discontinued 12.5 mg PO TWICE A DAY February 04, 2023 9:51am May 19, 2023 5:56pm Start: 02-04-2023 End: 05-19-2023 take 12.5 mg by mouth twice daily Metoprolol Succinate Discontinued 12.5 MG PO TWICE A DAY February 04, 2023 9:51am May 19, 2023 5:56pm Start: 01-28-2023 End: 09-29-2023 take 0.5 tablet by mouth twice daily metoprolol succinate ER (TOPROL XL) 25 mg 24 hr tablet Take 0.5 tablets by mouth twice daily. 0 01/28/2023 09/29/2023 Discontinued Start: 09-11-2022 metoprolol suc cinate (TOPROL-XL) 25 MG 24 hr tablet Start: 08-29-2022 End: 01-28-2023 take 1 tablet by mouth twice daily metoprolol tartrate , short acting, (LOPRESSOR) 25 mg tablet Take 1 tablet by mouth twice daily. 08/29/2022 01/28/2023 Discontinued Start: 08-28-2022 End: 02-04-2023 take 1 tablet by mouth twice daily Metoprolol Succinat e 50 mg tablet extended release 24 hr Discontinued 50 mg PO TWICE A DAY 60 October 03, 2022 10:59am February 04, 2023 9:55am Start: 08-27-2022 End: 08-28-2022 take 1 tablet by mouth twice daily Metoprolol Succinat e 25 mg tablet extended release 24 hr Discontinued 25 mg PO TWICE A DAY August 27, 2022 12:00am August 28, 2022 4:14pm Start: 07-29-2022 End: 08-11-2022 Metoprolol Succinate 50 mg t ablet extended release 24 hr Discontinued 100 mg PO TWICE A DAY July 29, 2022 5:01pm August 11, 2022 10:29am Start: 07-29-2022 End: 08-11-2022 take 100 mg by mouth twice daily Metoprolol Succinate Discontinued 100 MG PO TWICE A DAY July 29, 2022 5:01pm August 11, 2022 10:29am Start: 07-25-2022 End: 07-29-2022 take 1 tablet by mouth twice daily Metoprolol Succinat e 50 mg tablet extended release 24 hr Discontinued 50 mg PO TWICE A DAY July 25, 2022 4:16pm July 29, 2022 5:02pm Start: 04-15-2022 End: 07-25-2022 take 1 tablet by mouth twice daily Metoprolol Succinat e 25 mg tablet extended release 24 hr Discontinued 25 mg PO TWICE A DAY May 24, 2022 3:44pm July 25, 2022 4:26pm Start: 06-20-2021 End: 04-15-2022 take 1 tablet by mouth once daily Metoprolol Succinate 25 mg tablet extended release 24 hr Discontinued 25 mg PO DAILY June 20, 2021 4:58pm April 15, 2022 6:27pm Start: 01-19-2021 End: 06-20-2021 take 2 tablets by mouth once daily Metoprolol Succinat e 25 mg tablet extended release 24 hr Discontinued 12.5 mg PO DAILY May 10, 2021 5:33pm June 20, 2021 4:59pm Start: 01-19-2021 End: 06-20-2021 take 12.5 mg by mouth once daily Metoprolol Succinate Discontinued 12.5 MG PO DAILY May 10, 2021 5:33pm June 20, 2021 4:59pm Start: 07-26-2019 End: 08-15-2022 take 0.5 tablet by mouth once daily metoprolol succinate ER (TOPROL XL) 50 mg 24 hr tablet Take 0.5 tablets by mouth once daily. 90 tablet 1 07/26/2019 05/22/2022 Discontinued Start: 12-21-2018 End: 01-19-2021 take 1 tablet by mouth once daily Metoprolol Succinate 25 mg tablet extended release 24 hr Discontinued 25 mg PO DAILY 90 May 15, 2020 12:15pm January 19, 2021 1:18pm Start: 12-21-2018 End: 12-21-2018 take 2 tablets by mouth once daily Metoprolol Succinat e 50 mg tablet extended release 24 hr Discontinued 25 mg PO DAILY December 21, 2018 3:27pm December 21, 2018 3:31pm Start: 12-21-2018 End: 12-21-2018 take 25 mg by mouth once daily Metoprolol Succinate Di scontinued 25 MG PO DAILY December 21, 2018 3:27pm December 21, 2018 3:31pm Start: 12-04-2018 End: 12-21-2018 take 1 tablet by mouth once daily Metoprolol Succinate 50 mg tablet extended release 24 hr Discontinued 50 mg PO DAILY December 04, 2018 12:00am December 21, 2018 3:27pm Start: 11-16-2018 End: 12-04-2018 Metoprolol Succinate 100 mg tablet extended release 24 hr Discontinued 100 mg PO TWICE A DAY November 16, 2018 2:41pm December 04, 2018 1:45pm Take 100mg in a.m. and 50mg p.m. Start: 11-04-2018 End: 11-16-2018 Metoprolol Succinate 100 MG tablet Discontinued 100 mg PO DAILY November 04, 2018 12:00am November 16, 2018 2:42pm Take 100mg in a.m. and 50mg p.m. Start: 11-04-2018 End: 12-04-2018 take 2 tablets by mouth once daily in the morning, then take 1 tablet by mouth in the evening Metoprolol Succinate 50 MG tablet extended release 24 hr Discontinued 50 mg PO DAILY November 04, 2018 12:00am December 04, 2018 1:46pm On Hold: Order Changed Take 100mg in a.m. and 50mg p.m. Start: 11-04-2018 End: 12-04-2018 take 100 mg by mouth once daily in the morning, then take 50 mg by mouth in the evening Metoprolol Succinate Discontinued 50 MG PO DAILY November 04, 2018 12:00am December 04, 2018 1:46pm On Hold: Order Changed Take 100mg in a.m. and 50mg p.m. Start: 09-08-2017 End: 11-02-2018 take 1 tablet by mouth twice daily Metoprolol Succinat e 50 mg tablet extended release 24 hr Discontinued 50 mg PO TWICE A DAY 180 90 October 27, 2018 12:13pm November 02, 2018 1:00pm Start: 09-08-2017 End: 10-27-2018 take 1 tablet by mouth every twenty-four hours Metoprolol Succinate 50 mg tablet extended release 24 hr Discontinued PO 90 90 September 08, 2017 12:00am October 27, 2018 12:15pm Start: 10-10-2016 End: 09-08-2017 take 1 tablet by mouth twice daily Metoprolol Tartrate 100 MG tablet Discontinued 100 mg PO TWICE A DAY 60 October 10, 2016 12:00am September 08, 2017 3:45pm Start: 04-13-2015 End: 10-10-2016 take 2 tablets by mouth once daily Metoprolol Succinat e 50 MG tablet Discontinued 100 mg PO DAILY April 13, 2015 11:54am October 10, 2016 11:07am Start: 04-13-2015 End: 10-10-2016 take 100 mg by mouth once daily Metoprolol Succinate Discontinued 100 MG PO DAILY April 13, 2015 11:54am October 10, 2016 11:07am Start: 01-11-2015 End: 04-13-2015 take 1 tablet by mouth once daily Metoprolol Succinate 50 MG tablet Discontinued 50 mg PO DAILY January 11, 2015 11:23am April 13, 2015 11:54am Start: 03-18-2013 End: 01-11-2015 take 1 tablet by mouth once daily Metoprolol Succinate 100 MG tablet Discontinued 100 mg PO DAILY March 18, 2013 1:00am January 11, 2015 11:21am Start: 03-17-2013 End: 03-18-2013 take 1 tablet by mouth once daily Metoprolol Succinate 200 MG tablet Discontinued 200 mg PO DAILY March 17, 2013 1:00am March 18, 2013 3:45pm Comment on above: Take 0.5 tablets by mouth once daily. Take 1 tablet by wendy th twice daily. Take 0.5 tablets by mouth twice daily. molnupiravir 200 mg capsule (1 source) Start: 3 End: 3 take 4 capsules by mouth twice daily molnupiravir 200 mg capsule Take 4 capsules by mouth two times a day for 5 days. 40 capsule 0 03/17/2023 03/22/2023 Active Comment on above: Take 4 capsules by out two times a day for 5 days. Multiple Vitamin (MULTI-DAY PO) (4 sources) take 1 tablet by mouth once daily Multiple Vitamin (MULTI-DAY PO) Take 1 tablet by mouth daily. Suspended take 1 tablet by mouth once mark y Multiple Vitamin (MULTI-DAY PO) Take 1 tablet by mouth daily. Active multivit/folic acid/vit K1 (ONE-A-DAY WOMEN'S 50 PLUS ORAL) (4 sources) multivit/folic a kassandra/vit K1 (ONE-A-DAY WOMEN'S 50 PLUS ORAL) Take by mouth . 0 Active Multivitamin With Folic Acid (20 sources) Start: 03-15-2013 take 1 tablet by mouth once daily Multivitamin With Folic Acid Active 1 TABLET PO DAILY March 15, 2013 12:00am Start: 03-15-2013 take 1 tablet by wendy th once daily Multivitamin With Folic Acid Active 1 TABLET PO DAILY March 15, 2013 1:00am Multivitamin With Folic Acid 1 TABLET tablet (9 sources) Start: 03-15-2013 take 1 tablet by mouth once daily Multivitamin With Folic Acid 1 TABLET tablet Active 1 {tbl} PO DAILY March 15, 2013 1:00am MULTIVITAMIN WITH MINERALS (ONE-A-DAY 50 PLUS ORAL) (20 sources) MULTIVITAMIN WIT H MINERALS (ONE-A-DAY 50 PLUS ORAL) Take by mouth. Active MULTIVITAMIN WIT H MINERALS (ONE-A-DAY 50 PLUS ORAL) Take by mouth. 0 Active Comment on above: Take by mouth. mv-mn/iron/folic acid/herb 190 (VITAMIN D3 COMPLETE ORAL) (4 sources) mv-mn/iron/folic acid/herb 190 (VITAMIN D3 COMPLETE ORAL) Take by mouth . 0 Active nystatin 481048 unt/ml oral suspension (20 sources) Polyene Antifungal Start: 10-22-2024 End: 11-05-2024 take 4 mL by mouth four times daily nystatin (MYCOSTATIN) 100,000 unit/mL suspension Take 4 mL by mouth four times daily for 14 days. Swish and swallow. 224 mL 10/22/2024 11/05/2024 Active Start: 04-13-2024 End: 04-17-2024 500,000 Units, Swish & Swall ow, 4 TIMES DAILY NEEDED, Starting on 04/13/24 at 0031, Until 04/17/24 at 1737, Thrush Start: 06-30-2023 End: 10-22-2024 nystatin (MYCOSTATIN) 100,00 0 unit/mL suspension Indications: Thrush Take 5 mL by mouth four times daily. 1tsp swish in mouth for several minutes, then swallow (or expectorate) 4 times daily until gone. 200 mL 1 04/02/2024 10/22/2024 Discontinued Comment on above: Take 5 mL by mouth f our times daily. 1tsp swish in mouth for several minutes, then swallow (or expectorate) 4 times daily until gone. omeprazole 40 mg delayed release oral capsule (20 sources) Proton Pump Inhibitor Start: End: take 1 capsule by mouth once daily omeprazole (PRILOSEC) 40 mg capsule Take 1 capsule by mouth once daily. 180 capsule 3 10/21/2024 Active Start: 05-22-2022 End: 08-15-2022 take 1 capsule by mouth once daily omeprazole (PRILOSEC) 40 mg capsule Take 1 capsule by mouth once daily. 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 180 capsule 0 02/22/2022 05/22/2022 Discontinued (Discontinued by Patient) Start: 12-27-2019 End: 07-25-2022 take 1 capsule by mouth once daily Omeprazole 20 mg capsule,delayed release(DR/EC) Discontinued 20 mg PO DAILY January 19, 2021 1:16pm July 25, 2022 3:33pm Start: 01-09-2015 End: 09-08-2017 take 1 capsule by mouth once daily Omeprazole 40 MG capsule,delayed release(DR/EC) Discontinued 40 mg PO DAILY January 09, 2015 12:00am September 08, 2017 3:46pm Comment on above: Take 1 capsule by mo ut daily before breakfast. Take 1 capsule by mo [facility] twice daily. Take 1 capsule by mo ut once daily. oseltamivir 75 mg oral capsule (1 source) Neuraminidase Inhibitor Start: End: take 1 capsule by mouth twice daily oseltamivir (TAMIFLU) 75 mg capsule Take 1 capsule by mouth two times a day for 5 days. 10 capsule 06/22/2024 06/27/2024 Active polyethylene glycol 3350 125636 mg / potassium chloride 2970 mg / sodium bicarbonate 6740 mg / sodium chloride 5860 mg / sodium sulfate 01614 mg powder for oral solution (1 source) Osmotic Laxative Start: 023 End: peg 3350-Electrolytes (GOLYTELY) 236-22.74-6.74 -5.86 gram suspension Take 4,000 mL by mouth one time only for 1 dose. Refer to printed prep instructions from your provider. 4000 mL 0 05/23/2022 05/23/2022 Active Comment on above: Take 4,000 mL by [facility] one time only for 1 dose. Refer to printed prep instructions from your provider. spironolactone 25 mg oral tablet (15 sources) Aldosterone Antagonist Start: 024 End: 025 take 1 tablet by mouth once daily Spironolactone 25 mg tablet Active 25 mg PO DAILY March 24, 2024 1:00am sucralfate 100 mg/ml oral suspension (20 sources) Aluminum Complex Start: take 10 mL by mouth at bedtime sucralfate (CARAFATE) 100 mg/mL suspension Take 10 mL by mouth before meals and at bedtime. (560cc=2wks) 414 mL 5 06/09/2024 Active Start: 12-31-2022 End: 04-28-2024 take 1 mL by mouth at bedtime as needed Sucralfate 100 mg/mL suspension Active 10 mL PO BEFORE MEALS AND AT BEDTIME as needed for stoma April 28, 2024 5:15pm Start: 12-02-2022 End: 01-01-2024 take 10 mL by mouth at bedtime sucralfate (CARAFATE) 1 00 mg/mL suspension Take 10 mL by mouth before meals and at bedtime. (560cc=2wks) 414 mL 5 12/02/2022 03/23/2023 Discontinued Start: 08-15-2022 take 10 mL by mouth at bedtime sucralfate (CARAFATE) 100 mg/mL suspension Take 10 mL by mouth before meals and at bedtime. (560cc=2wks) 414 mL 5 08/15/2022 Active Start: 04-18-2022 End: 12-15-2023 take 1 tablet by mouth at bedtime Sucralfate 1 gram tablet Discontinued 1 g PO before meals and at bedtime May 07, 2022 1:00am December 31, 2022 2:14am take 1000 mg by mout h every six hours as needed Sucralfate 1 GM/10ML oral suspension Take 10 mL by mouth every 6 hours as needed. Active Comment on above: Take 1 tablet by wendy th before meals and at bedtime. Take 10 mL by mouth before meals and at bedtime. (560cc=2wks) sulfamethoxazole 800 mg / trimethoprim 160 mg oral tablet (1 source) Dihydrofolate Reductase Inhibitor Antibacterial, Sulfonamide Antimicrobial Start: 01-22-20 End: 01-25-20 take 1 tablet by mouth twice daily sulfamethoxazole-t rimethoprim (BACTRIM DS) 800-160 mg per tablet Indications: Urinary tract infection without hematuria, site unspecified Take 1 tablet by mouth twice daily for 3 days. 6 tablet 0 01/21/2022 01/24/2022 Active Comment on above: Take 1 tablet by wendy twice daily for 3 days. Completed/Discontinued Medications Medication Drug Class(es) Dates Sig (Normalized) Sig (Original) acetaminophen 325 mg oral tablet (7 sources) Start: 10-01-2024 End: 10-08-2024 take 1 tablet by mouth every six hours as needed 975 mg, Oral, EVERY 6 HOURS NEEDED, Starting on 10/01/24 at 2018, Until Fri10/08/24 at 1539, Mild Pain, Oral temp > 100.4 F, Headaches, Moderate Pain, Alternate with ibuprofen if ordered, Maximum dose of acetaminophen is 4000 mg from all sources in 24 hours or 2000 mg from all sources in patients with cirrhosis in 24 hours. Start: 04-12-2024 End: 04-17-2024 take 1 tablet by mouth every six hours as needed 650 mg, Oral, EVERY 6 HOURS NEEDED, Starting on 04/12/24 at 2255, Until 04/17/24 at 1737, Mild Pain, Oral temp > 100.4 F, Maximum dose of acetaminophen is 4000 mg from all sources in 24 hours. Start: 01-01-2022 End: 01-08-2022 take 2 tablets by mouth every six hours as needed acetaminophen (TYLENOL EXTRA STRENGTH) 500 mg tablet Take 2 tablets by mouth every 6 hours as needed for pain for up to 7 days. 56 tablet 2 01/01/2022 01/08/2022 Active take 1 tablet by wendy every six hours as needed acetaminophen (Tylenol 8 Hour Arthritis Pain) 650 MG Tab CR Take 1 tablet by mouth every 6 hours as needed for Mild Pain. Active Comment on above: Take 2 tablets by mo [facility] every 6 hours as needed for pain for up to 7 days. aluminum hydroxide 40 mg/ml / magnesium hydroxide 40 mg/ml / simethicone 4 mg/ml oral suspension (3 sources) Start: 10-07-2024 End: 10-08-2024 take 30 mL by mouth every six hours as needed 30 mL, Oral, EVERY 6 HOURS NEEDED, Starting on Meme 10/07/24 at 1209, Until 10/08/24 at 1539, Indigestion, Per 5 mL is equivalent to: (Alum-Mag Hydroxide 200-225 mg and Simethicone 20 mg) and (Alum-Mag Hydroxide 200-200 mg and Simethicone 20 mg), Post-op/Post-Proc Start: 04-22-2024 End: 04-22-2024 take 30 mL by mouth every six hours as needed 30 mL, Oral, EVERY 6 HOURS NEEDED, Starting on Meme 04/22/24 at 1032, Until Meme 04/22/24 at 1716, Indigestion, Per 5 mL is equivalent to: (Alum-Mag Hydroxide 200-225 mg and Simethicone 20 mg) and (Alum-Mag Hydroxide 200-200 mg and Simethicone 20 mg), Post-op/Post-Proc Start: 04-12-2024 End: 04-17-2024 take 30 mL by mouth every six hours as needed amiodarone hydrochloride 200 mg oral tablet (20 sources) Antiarrhythmic Start: 07-16-2022 End: 07-25-2022 take 1 tablet by mouth twice daily Amiodarone 200 mg tablet Discontinued 200 mg PO TWICE A DAY 60 July 16, 2022 1:00am July 25, 2022 4:17pm BID x2 weeks followed 200mg PO daily amoxicillin 125 mg chewable tablet (20 sources) Penicillin-class Antibacterial Start: 10-03-2022 End: 12-31-2022 take 2 tablets by mouth twice daily Amoxicillin 125 mg tablet,chewable Discontinued 250 mg PO TWICE A DAY October 03, 2022 12:00am December 31, 2022 2:09am x10 days Start: 10-03-2022 End: 12-31-2022 take 250 mg by mouth twice daily Amoxicillin Discontinued 250 MG PO TWICE A DAY October 03, 2022 12:00am December 31, 2022 2:09am x10 days Start: 08-29-2022 End: 09-05-2022 take 1 tablet by mouth three times daily Amoxicillin 500 mg tablet Take 1 tablet by mouth three times daily for 7 days. 21 tablet 0 08/29/2022 09/05/2022 Active Comment on above: Take 1 tablet by wendy three times daily for 7 days. ascorbic acid 500 mg chewable tablet (3 sources) Vitamin C Start: 10-02-2024 End: 10-08-2024 take 1000 mg by mouth once daily 1,000 mg, Oral, DAILY, First dose on 5/24/25 at 0900, Until Discontinued take 1 tablet by mouth once mark y Ascorbic Acid (Vitamin C) 1000 MG tablet Take 1 tablet by mouth daily. Active atorvastatin 20 mg oral tablet (20 sources) HMG-CoA Reductase Inhibitor Start: 04-19-2024 End: 07-31-2024 take 1 tablet by mouth once daily Atorvastatin 20 mg tablet Discontinued 20 mg PO daily April 19, 2024 1:00am July 31, 2024 10:38pm Start: 04-13-2024 End: 04-17-2024 take 1 tablet by mouth at bedtime Atorvastatin 20 MG tablet Take 1 tablet by mouth at bedtime. 30 tablet 3 04/17/2024 Active Start: 09-13-2022 End: 09-13-2023 take 1 tablet by mouth at bedtime Atorvastatin 20 mg tablet Discontinued 20 mg PO AT BEDTIME October 03, 2022 12:00am December 31, 2022 2:09am Start: 01-20-2020 End: 06-19-2020 take 1 tablet by mouth once daily atorvastatin (LIPITOR) 40 mg tablet Indications: Hyperlipidemia, mixed Take 1 tablet by mouth once daily. 30 tablet 3 01/20/2020 06/19/2020 Discontinued (Discontinued by Patient) azithromycin 250 mg oral tablet (19 sources) Macrolide Antimicrobial Start: 01-03-2023 End: 01-23-2023 azithromycin (ZITHROMAX Z-DUONG) 250 mg tablet Take 2 tablets day one, then, 1 tablet daily until gone. 0 01/03/2023 01/23/2023 Discontinued Start: 01-02-2023 End: 07-04-2023 take 1 tablet by mouth once daily Azithromycin (Zithromax) 500 mg tablet Discontinued 500 mg PO DAILY 3 January 02, 2023 12:00am July 04, 2023 12:13pm Comment on above: Take 2 tablets day o ne, then, 1 tablet daily until gone. 120 actuat budesonide 0.16 mg/actuat / formoterol fumarate 0.0048 mg/actuat / glycopyrrolate 0.009 mg/actuat metered dose inhaler (4 sources) Corticosteroid, beta2-Adrenergic Agonist Start: 10-03-19 End: 10-09-19 take 1 puff(s) by inhalation every twelve hours 1 puff, Inhalation, EVERY 12 HOURS, First dose (after last modification) on 10/03/24 at 0900, Until Discontinued Start: 04-13-2024 End: 04-17-2024 take 2 puff(s) by inhalation once daily 2 puff, Inhalation, DAILY, First dose (after last modification) on Meme 04/15/24 at 0900, Until Discontinued calcium carbonate 648 mg oral tablet (20 sources) Start: 10-01-2024 End: 10-08-2024 take 1 tablet by mouth four times daily as needed 1,296 mg (2 tablet), Oral, 4 TIMES DAILY NEEDED, Starting on Fri10/01/24 at 2018, Until Fri10/08/24 at 1539, Indigestion Start: 06-25-2021 End: 04-19-2024 take 1 tablet by mouth once daily Calcium Carbonate 500 mg calcium (1,250 mg) tablet Discontinued 500 mg PO DAILY June 25, 2021 1:00am April 19, 2024 10:08am Start: 10-08-2016 End: 01-19-2021 take 1 tablet by mouth once daily Calcium Carbonate 500 MG tablet Discontinued 500 mg PO DAILY October 08, 2016 12:00am January 19, 2021 1:18pm cefdinir 300 mg oral capsule (20 sources) Cephalosporin Antibacterial Start: 01-02-2023 End: 07-04-2023 take 1 capsule by mouth twice daily Cefdinir 300 mg capsule Discontinued 300 mg PO TWICE A DAY January 02, 2023 12:00am July 04, 2023 12:14pm Start: 12-12-2022 End: 12-22-2022 take 1 capsule by mouth twice daily cefdinir (OMNICEF) 300 mg capsule Take 1 capsule by mouth twice daily for 10 days. 20 capsule 12/12/2022 12/22/2022 Comment on above: Take 1 capsule by [facility] twice daily for 10 days. Take 1 capsule by [facility] twice daily. cefTRIAXone 1000 mg injection (1 source) Cephalosporin Antibacterial Start: 2024 End: 2024 take 1 g intravenously every twenty-four hours 1 g, Intravenous, Administer over 30 Minutes, EVERY 24 HOURS, 5 doses, First dose on Fri10/02/24 at 0630, Last dose on Fri10/06/24 at 0630 celecoxib 100 mg oral capsule (1 source) Nonsteroidal Anti-inflammatory Drug Start: 2020 End: 2021 take 1 capsule by mouth twice daily as needed for pain celecoxib (CELEBREX) 100 mg capsule Indications: Left hip pain , Contusion of right foot including toes, initial encounter Take 1 capsule by mouth twice daily as needed for pain. 60 capsule 1 05/02/2021 07/10/2021 Discontinued cholecalciferol 0.125 mg oral tablet (20 sources) Vitamin D Start: 2024 End: 2024 take 5000 [IU] by mouth once daily 5,000 Units, Oral, DAILY, First dose on 10/02/24 at 0900, Until Discontinued Start: 01-19-2021 End: 07-25-2022 Cholecalciferol (Vitamin D3) 25 mcg (1,000 unit) tablet Discontinued 1000 U PO .5xDaily January 19, 2021 1:17pm July 25, 2022 3:32pm Start: 01-09-2015 End: 01-19-2021 take 1 tablet by mouth once daily Cholecalciferol (Vitamin D3) 1,000 UNIT tablet Discontinued 1000 U PO DAILY January 09, 2015 12:00am January 19, 2021 1:18pm take 1 tablet by wendy th once daily Cholecalciferol (VITAMIN D-3 PO) Take 1 tablet by mouth daily. Active cyclobenzaprine hydrochloride 10 mg oral tablet (20 sources) Muscle Relaxant Start: 01-08-2021 End: 07-25-2022 take 1 tablet by mouth at bedtime Cyclobenzaprine 10 mg tablet Discontinued 10 mg PO BEDTIME May 07, 2022 1:00am July 25, 2022 3:34pm Comment on above: Take 1 tablet by wendy th three times daily as needed for muscle spasm. dapagliflozin 10 mg oral tablet (12 sources) Sodium-Glucose Cotransporter 2 Inhibitor Start: 10-02-2024 End: 10-08-2024 10 mg, Oral, DAILY, First dose on 10/02/24 at 0900, Until Discontinued, Do not administer if NPO. Discontinue 3 days prior to major invasive medical procedures., Indications: Heart Failure Start: 04-19-2024 End: 04-19-2024 take 1 tablet by mouth once daily in the morning Dapagliflozin Propanediol (Farxiga) 10 mg tablet Discontinued 10 mg PO EVERY MORNING April 19, 2024 1:00am April 19, 2024 11:14am Start: 04-13-2024 End: 04-17-2024 take 10 mg by mouth once daily 10 mg, Oral, DAILY, Fir st dose (after last modification) on Meme 04/15/24 at 1530, Until Discontinued, Indications: Heart Failure 24 hr dilTIAZem hydrochloride 180 mg extended release oral capsule (20 sources) Calcium Channel Karson Start: 10-10-2016 End: 09-08-2017 take 1 capsule by mouth every twelve hours Diltiazem Hcl 180 MG capsule Discontinued 180 mg PO EVERY 12 HOURS October 10, 2016 12:00am September 08, 2017 3:44pm Start: 01-11-2015 End: 01-11-2015 Diltiazem Hcl 120 MG capsule Discontinued 180 mg PO DAILY January 11, 2015 12:00am January 11, 2015 11:22am Start: 01-11-2015 End: 01-11-2015 take 180 mg by mouth once daily Diltiazem Hcl Disconti nued 180 MG PO DAILY January 11, 2015 12:00am January 11, 2015 11:22am Start: 03-17-2013 End: 03-18-2013 take 1 capsule by mouth once daily Diltiazem Hcl 120 MG capsule Discontinued 120 mg PO DAILY March 17, 2013 1:00am March 18, 2013 3:44pm dofetilide 0.125 mg oral capsule (20 sources) Antiarrhythmic Start: 10-01-2024 End: 10-07-2024 take 1 capsule by mouth every twelve hours 125 mcg, Oral, EVERY 12 HOURS NON-STANDARD, First dose on Fri10/01/24 at 2300, Until Discontinued, Doses should be by at least 10 hours from last administration. Please contact pharmacy/ordering provider for questions about timing of doses., On hold since Fri10/02/2024 at 0731 until manually unheld Start: 08-11-2024 End: 10-08-2024 take 1 capsule by mouth every twelve hours Dofetilide 125 MCG capsule Take 1 capsule by mouth every 12 hours. If 3 doses are missed, contact the prescribing title curator as soon as possible. 60 capsule 3 08/11/2024 10/08/2024 Discontinued (Stop Taking at Discharge) Start: 04-17-2024 End: 10-22-2024 dofetilide (TIKOSYN) 125 mcg capsule 125 mcg two times a day. 04/17/2024 10/22/2024 Discontinued Start: 04-13-2024 End: 04-17-2024 take 1 capsule by mouth every twelve hours Dofetilide 125 MCG capsule Take 1 capsule by mouth every 12 hours. If 3 doses are missed, contact the prescribing title curator as soon as possible. 60 capsule 3 04/17/2024 Active enteric contrast (will be provided with radiology test) (4 sources) Start: 12-26-2022 End: 12-27-2022 enteric contrast (will be provided with radiology test) Indications: Left lower quadrant abdominal pain , Right lower quadrant abdominal tenderness without rebound tenderness , Bowel habit changes , Blood in stool For CT ABD/PEL W IVCON Routine order Administer, As Directed One Time Only, via Oral, Rectal, both Oral and Rectal, Enteric Tube, Stoma or Indwelling Catheter, Enteric Contrast as designated per enteric contrast guidelines 1 Each 0 12/26/2022 12/27/2022 Start: 12-26-2022 End: 12-27-2022 enteric contrast (will be pr ovided with radiology test) Indications: Left lower quadrant abdominal pain , Right lower quadrant abdominal tenderness without rebound tenderness , Bowel habit changes , Blood in stool For CT ABD/PEL W IVCON Routine order Administer, As Directed One Time Only, via Oral, Rectal, both Oral and Rectal, Enteric Tube, Stoma or Indwelling Catheter, Enteric Contrast as designated per enteric contrast guidelines 1 Each 0 12/26/2022 12/27/2022 Active Start: 05-23-2022 End: 05-23-2022 take 1 dose by mouth once, then take 1 dose by mouth once enteric contrast (will be provided with radiology test) Take 1 Each by mouth one time only for [address] ABD/PEL WO Routine order Administer, As Directed One Time Only, via Oral, Rectal, both Oral and Rectal, Enteric Tube, Stoma or Indwelling Catheter, Enteric Contrast as designated per enteric contrast guidelines 1 Each 0 05/23/2022 05/23/2022 Active Comment on above: Take 1 Each by mouth one time only for [address] ABD/PEL WO Routine order Administer, As Directed One Time Only, via Oral, Rectal, both Oral and Rectal, Enteric Tube, Stoma or Indwelling Catheter, Enteric Contrast as designated per enteric contrast guidelines For CT ABD/PEL W IVC ON Routine order Administer, As Directed One Time Only, via Oral, Rectal, both Oral and Rectal, Enteric Tube, Stoma or Indwelling Catheter, Enteric Contrast as designated per enteric contrast guidelines estradiol 0.1 mg/ml vaginal cream (20 sources) Estrogen Start: 02-04-2022 End: 08-15-2022 estradiol (ESTRACE) 0.01 % (0.1 mg/gram) vaginal cream Indications: Post-operative state Insert 1 gram inside the vagina nightly for 2 weeks, then insert 1 gram inside the vagina twice weekly 42.5 g 3 02/04/2022 08/15/2022 Discontinued (Discontinued by Patient) estradioL (ESTRA CE) 0.01 % (0.1 mg/gram) vaginal cream Insert 2 (two) g into the vagina daily . 0 Active Comment on above: Insert 1 gram inside the vagina nightly for 2 weeks, then insert 1 gram inside the vagina twice weekly famotidine 20 mg oral tablet (20 sources) Histamine-2 Receptor Antagonist Start: 3 End: 4 take 1 tablet by mouth twice daily Famotidine 20 mg tablet Discontinued 20 mg PO TWICE A DAY July 25, 2022 12:00am December 22, 2023 11:03am Comment on above: Take 1 tablet by [facility] twice daily. ferrous sulfate 324 mg delayed release oral tablet (2 sources) Start: 5 End: 5 take 324 mg by mouth once daily 324 mg, Oral, DAILY, First dose on 10/02/24 at 0900, Until Discontinued, Do not crush. take 1 tablet by mouth once mark y Ferrous Sulfate (IRON PO) Take 1 tablet by mouth daily. Active fexofenadine hydrochloride 180 mg oral tablet (4 sources) Histamine-1 Receptor Antagonist Start: 10-02-2024 End: 10-08-2024 take 180 mg by mouth once daily 180 mg, Oral, DAILY, First dose on 10/02/24 at 0900, Until Discontinued Start: 04-14-2024 End: 12-07-2024 60 mg, Oral, DAILY, First do se on Fri04/14/24 at 0915, Until Discontinued, Avoid antacid administration one hour before and two hours after dose. Avoid administration with fruit juices. fidaxomicin 200 mg oral tablet (20 sources) Macrolide Antibacterial Start: 01-28-2023 End: 02-22-2023 take 1 tablet by mouth twice daily, then take 1 tablet by mouth once daily fidaxomicin (DIFICID) 200 mg tablet Take 1 tablet by mouth twice daily for 5 days, THEN 1 tablet once daily for 20 days. 30 tablet 0 01/28/2023 02/22/2023 Start: 12-31-2022 End: 07-04-2023 take 1 tablet by mouth every twelve hours Fidaxomicin (Dificid) 200 mg tablet Discontinued 200 mg PO Q12H December 31, 2022 12:00am July 04, 2023 12:14pm Start: 12-30-2022 End: 01-09-2023 take 1 tablet by mouth twice daily fidaxomicin (DIFICID) 200 mg tablet Indications: C. difficile diarrhea Take 1 tablet by mouth twice daily for 10 days. 20 tablet 0 12/30/2022 01/09/2023 Active Comment on above: Take 1 tablet by wendy th twice daily for 10 days. Take 1 tablet by wendy th twice daily for 5 days, THEN 1 tablet once daily for 20 days. flecainide acetate 100 mg oral tablet (20 sources) Antiarrhythmic Start: End: take 1 tablet by mouth twice daily Flecainide 100 mg tablet Discontinued 100 mg PO TWICE A DAY April 12, 2024 1:00am April 19, 2024 10:02am Start: 08-27-2022 End: 03-16-2024 take 1 tablet by mouth every twelve hours Flecainide 100 mg tablet Discontinued 100 mg PO Q12H April 11, 2023 10:45am March 16, 2024 9:49am Start: 08-05-2022 End: 08-11-2022 Flecainide 100 mg tablet Discontinued 150 mg PO TWICE A DAY August 05, 2022 11:31am August 11, 2022 10:29am Start: 08-05-2022 End: 08-11-2022 take 150 mg by mouth twice daily Flecainide Discontinued 150 MG PO TWICE A DAY 90 August 05, 2022 11:31am August 11, 2022 10:29am Start: 04-27-2022 End: 07-16-2022 Flecainide 150 mg tablet Discontinued 100 mg PO Q12H 180 April 27, 2022 6:18pm July 16, 2022 2:24pm Start: 04-27-2022 End: 07-16-2022 take 100 mg by mouth every twelve hours Flecainide Discontinued 100 MG PO Q12H 180 April 27, 2022 6:18pm July 16, 2022 2:24pm Start: 03-07-2022 End: 04-27-2022 take 1 tablet by mouth every twelve hours Flecainide 150 mg tablet Discontinued 150 mg PO Q12H 180 March 27, 2022 2:10pm April 27, 2022 6:18pm Start: 02-27-2022 End: 03-07-2022 Flecainide 100 mg tablet Discontinued 150 mg PO TWICE A DAY 180 February 27, 2022 3:53pm March 07, 2022 8:18am Start: 02-27-2022 End: 03-07-2022 take 150 mg by mouth twice daily Flecainide Discontinued 150 MG PO TWICE A DAY 180 February 27, 2022 3:53pm March 07, 2022 8:18am Start: 02-27-2022 End: 03-07-2022 take 1 tablet by mouth every twelve hours Flecainide 50 mg tablet Discontinued 50 mg PO Q12H 30 February 27, 2022 12:00am March 07, 2022 8:18am Start: 11-04-2018 End: 08-15-2022 take 1 tablet by mouth twice daily Flecainide 100 mg tablet Discontinued 100 mg PO TWICE A DAY 60 July 30, 2022 10:13am August 05, 2022 11:27am Comment on above: Take 100 mg by mouth twice daily. Take 150 mg by mouth twice daily. Take 1 tablet by wendy th twice daily. Take 1 tablet by wendy th two times a day. furosemide 60 mg extended release oral capsule (20 sources) Loop Diuretic Start: 10-04-2024 End: 10-08-2024 take 60 mg by mouth once daily 60 mg, Oral, DAILY, First dose (after last modification) on Fri10/04/24 at 1430, Until Discontinued Start: 07-27-2024 take 2 tablets by [facility] once daily Furosemide 20 mg tablet Active 40 mg PO daily July 27, 2024 11:42am Start: 04-19-2024 End: 07-27-2024 take 1 tablet by mouth three times daily Furosemide 20 mg tablet Discontinued 20 mg PO THREE TIMES A DAY April 19, 2024 1:00am July 27, 2024 11:43am Start: 04-17-2024 take 3 tablets by mo [facility] once daily in the evening furOSEmide 20 MG tablet Take 3 tablets by mouth daily. 180 tablet 3 04/17/2024 3:20 PM EST 04/17/2024 Active Start: 04-16-2024 End: 04-17-2024 take 60 mg by mouth once daily 60 mg, Oral, DAILY, Fir st dose (after last modification) on Fri04/16/24 at 0900, Until Discontinued Start: 04-15-2024 End: 04-15-2024 60 mg, Intravenous, ONCE, 1 dose, On Meme 04/15/24 at 1445, Administer by slow IV push at a rate not exceeding 40mg/min Start: 03-26-2024 End: 04-19-2024 Furosemide 40 mg tablet Disc ontinued 60 mg PO TWICE A DAY 270 90 April 12, 2024 12:30pm April 19, 2024 10:04am Start: 12-22-2023 End: 03-26-2024 Furosemide 40 mg tablet Disc ontinued 60 mg PO .COMPLEX 180 December 22, 2023 3:10pm March 26, 2024 5:43pm 60 mg orally daily: may need to take twice daily as needed for weight gain, leg swelling or shortness of breath; Needs extra tablets; Start: 06-14-2022 take 1 tablet by [facility] twice daily furosemide (LASIX) 40 mg tablet Take 1 tablet by mouth twice daily. 08/29/2022 Active Start: 09-14-2019 End: 12-22-2023 Furosemide 40 mg tablet Disc ontinued 40 mg PO .COMPLEX 180 January 27, 2023 11:49am December 22, 2023 3:10pm 40 mg orally daily: may need to take twice daily as needed for weight gain, leg swelling or shortness of breath; Needs extra tablets Start: 11-27-2018 End: 09-14-2019 take 1 tablet by mouth twice daily Furosemide 40 mg tablet Discontinued 40 mg PO TWICE A DAY 180 July 29, 2019 10:51am September 14, 2019 10:52am Start: 11-02-2018 End: 11-27-2018 take 1 tablet by mouth once daily Furosemide 40 MG tablet Discontinued 40 mg PO DAILY 60 November 02, 2018 12:00am November 27, 2018 10:14am Start: 10-10-2016 End: 03-17-2018 Furosemide 40 mg tablet Disc ontinued 40 mg PO .prn September 08, 2017 3:44pm March 17, 2018 5:04pm End: 04-17-2024 take 1.5 tablets by mouth twice daily furOSEmide 40 MG tablet Take 1.5 tablets by mouth 2 times daily. 04/17/2024 Discontinued Comment on above: Take 1 tablet by wendy th once daily. Take 1 tablet by wendy th twice daily. gabapentin 100 mg oral capsule (2 sources) Anti-epileptic Agent Start: 09-28-19 End: 10-09-19 take 100 mg by mouth three times daily 100 mg, Oral, 3 TIMES DAILY, First dose on Fri10/01/24 at 2130, Until Discontinued guaiFENesin 20 mg/ml oral solution (1 source) Start: 10-02-19 End: 10-09-19 take 400 mg by mouth every six hours as needed 250 ml heparin sodium, porcine 100 unt/ml injection (2 sources) Unfractionated Heparin, Anti-coagulant Start: 10-07-19 End: 10-08-19 CONTINUOUS, Starting on Fri10/06/24 at 1300, Until Meme 10/07/24 at 1708, INTERMEDIATE/CARDIAC SLIDING SCALE FOR PATIENTS WEIGHT LESS THAN 65KG: Initiate dose at 12 units/kg/hr. If PTT is less than 47, increase dose by 3 units/kg/hr. If PTT is 47-60, increase dose by 2 units/kg/hr. If PTT is 61-71, increase dose by 1 unit/kg/hr. If PTT is 72-95, no change. If PTT is 96-111, decrease dose by 1 unit/kg/hr. If PTT is 112-126, hold infusion for 60 minutes and decrease dose by 2 units/kg/hr. If PTT greater than 126, hold infusion and check PTT every 2 hours. Once PTT is in goal range or below, restart infusion at 3 units/kg/hr lower than the most recent dose. Note: Round PTT to nearest whole number (e.g. 70.5=71, 70.4=70)., Indications: Atrial Fibrillation Start: 04-12-2024 End: 04-13-2024 CONTINUOUS, Starting on Fri04/12/24 at 2315, Until Fri04/13/24 at 2100, INTERMEDIATE/CARDIAC SLIDING SCALE FOR PATIENTS WEIGHT LESS THAN 65KG: Initiate dose at 12 units/kg/hr. If PTT is less than 47, increase dose by 3 units/kg/hr. If PTT is 47-60, increase dose by 2 units/kg/hr. If PTT is 61-71, increase dose by 1 unit/kg/hr. If PTT is 72-95, no change. If PTT is 96-111, decrease dose by 1 unit/kg/hr. If PTT is 112-126, hold infusion for 60 minutes and decrease dose by 2 units/kg/hr. If PTT greater than 126, hold infusion and check PTT every 2 hours. Once PTT is in goal range or below, restart infusion at 3 units/kg/hr lower than the most recent dose. Note: Round PTT to nearest whole number (e.g. 70.5=71, 70.4=70)., Indications: Atrial Fibrillation hydrocortisone 0.025 mg/mg topical ointment (1 source) Corticosteroid Start: 04-15-2024 End: 04-17-2024 1 Application, Topical, 2 TIMES DAILY, First dose on Fri04/15/24 at 0900, Until Discontinued, Apply to chest iohexol (OMNIPAQUE) 350 MG/ML injection 1-171 mL (1 source) Start: 04-21-2024 End: 04-21-2024 1-171 mL, Intravenous, ONCE, 1 dose, On Fri04/21/24 at 1600, Extravasation Risk, CT Procedure iv contrast (will be provided with radiology test) (3 sources) Start: 12-26-2022 End: 12-27-2022 iv contrast (will be provided with radiology test) Indications: Left lower quadrant abdominal pain , Right lower quadrant abdominal tenderness without rebound tenderness , Bowel habit changes , Blood in stool CT ABD/PEL -Inject, intravenously, once for 1 dose.No IV access, insert saline lock prior to the beginning of sedation, infusion, injection of imaging exam. Discontinue saline lock post exam. If Pt. has a central line or IVAD, may access for administration according to line specific nursing protocol. Once exam is complete flush line and de-access according to line specific nursing protocol in the CT contrast administration guidelines link. 1 Each 0 12/26/2022 12/27/2022 Start: 12-26-2022 End: 12-27-2022 iv contrast (will be provide d with radiology test) Indications: Left lower quadrant abdominal pain , Right lower quadrant abdominal tenderness without rebound tenderness , Bowel habit changes , Blood in stool CT ABD/PEL -Inject, intravenously, once for 1 dose.No IV access, insert saline lock prior to the beginning of sedation, infusion, injection of imaging exam. Discontinue saline lock post exam. If Pt. has a central line or IVAD, may access for administration according to line specific nursing protocol. Once exam is complete flush line and de-access according to line specific nursing protocol in the CT contrast administration guidelines link. 1 Each 0 12/26/2022 12/27/2022 Active Comment on above: CT ABD/PEL -Inject, intravenously, once for 1 dose.No IV access, insert saline lock prior to the beginning of sedation, infusion, injection of imaging exam. Discontinue saline lock post exam. If Pt. has a central line or IVAD, may access for administration according to line specific nursing protocol. Once exam is complete flush line and de-access according to line specific nursing protocol in the CT contrast administration guidelines link. Lactobacillus Combination No.9 (Adult 50 Plus Probiotic) 4 billion cell capsule (19 sources) Start: 023 End: 023 take 4 capsules by mouth once daily Lactobacillus Combination No.9 (Adult 50 Plus Probiotic) 4 billion cell capsule Discontinued 4000 NMA PO DAILY August 27, 2022 12:00am December 31, 2022 2:11am administer with a meal Start: 08-27-2022 End: 12-31-2022 take 4 capsules by mouth once daily Lactobacillus Combination No.9 (Adult 50 Plus Probiotic) 4 billion cell capsule Discontinued 4000 MMU CELLS PO DAILY August 26, 2022 11:00pm December 31, 2022 1:11am administer with a meal Start: 08-27-2022 End: 12-31-2022 take 4 capsules by mouth once daily Lactobacillus Combination No.9 (Adult 50 Plus Probiotic) 4 billion cell capsule Discontinued 4000 MMU CELLS PO DAILY August 27, 2022 12:00am December 31, 2022 2:11am administer with a meal Start: 08-27-2022 take 4 capsules by m outh once daily Lactobacillus Combination No.9 (Adult 50 Plus Probiotic) 4 billion cell capsule Active 4000 MMU CELLS PO DAILY August 27, 2022 12:00am administer with a meal levoFLOXacin 750 mg oral tablet (3 sources) Quinolone Antimicrobial Start: 10-05-2024 End: 10-05-2024 750 mg, Oral, EVERY 48 HOURS, 1 dose, First dose (after last reorder) on Fri10/05/24 at 1800, Avoid antacid, iron, dairy, sucralfate, and tube feed administration for 1 hour before and 2 hours after dose. Start: 03-15-2022 End: 03-20-2022 take 1 tablet by mouth once daily levoFLOXacin (LEVAQUIN) 750 mg tablet Take 1 tablet by mouth once daily for 5 days. 5 tablet 0 03/15/2022 03/20/2022 Active Comment on above: Take 1 tablet by wendy once daily for 5 days. lidocaine 0.05 mg/mg medicated patch (20 sources) Antiarrhythmic, Amide Local Anesthetic Start: 3 End: 4 apply 1 dose transdermal route every twenty-four hours lidocaine (LIDODERM) 5 % Indications: Fall, initial encounter , Acute midline back pain, unspecified back location , Rib tenderness Apply 1 Patch as directed every 24 hours. Apply patch for 12 hours, remove, and then wait 12 more hours before applying a new patch. Location: mid back 14 Patch 09/26/2022 12/15/2023 Discontinued Comment on above: Apply 1 Patch as dir ected every 24 hours. Apply patch for 12 hours, remove, and then wait 12 more hours before applying a new patch. Location: mid back magnesium oxide 400 mg oral tablet (3 sources) Start: 5 End: 5 800 mg, Oral, ADMINISTER DIRECTED, Starting on Meme 10/07/24 at 1209, Until Fri10/08/24 at 1539, See admin instructions, For Magnesium 1.6 - 2.0, give 800 mg of Magnesium oxide, Post-op/Post-Proc Start: 04-22-2024 End: 04-22-2024 800 mg, Oral, ADMINISTER DIRECTED, Starting on Meme 04/22/24 at 1032, Until Meme 04/22/24 at 1716, See admin instructions, For Magnesium 1.6 - 2.0, give 800 mg of Magnesium oxide, Post-op/Post-Proc Start: 04-12-2024 End: 04-17-2024 800 mg, Oral, ADMINISTER DIRECTED, Starting on 04/12/24 at 2255, Until 04/17/24 at 1737, See admin instructions, For Magnesium 1.6 - 2.0, give 800 mg of Magnesium oxide 50 ml magnesium sulfate 80 mg/ml injection (3 sources) Start: 10-05-2024 End: 10-08-2024 4 g, Intravenous, Administer over 4 Hours, ADMINISTER DIRECTED, Starting on 10/05/24 at 0748, Until Fri10/08/24 at 1539, Other, Magnesium Replacement Therapy, If Magnesium less than 1.6, give 4 g Magnesium Sulfate IVPB over 4 hours (may give over 1 hour if arrhythmias present). Start: 04-22-2024 End: 04-22-2024 4 g, Intravenous, Administer over 4 Hours, ADMINISTER DIRECTED, Starting on Meme 04/22/24 at 1032, Until Meme 04/22/24 at 1716, Other, Magnesium Replacement Therapy, If Magnesium less than 1.6, give 4 g Magnesium Sulfate IVPB over 4 hours (may give over 1 hour if arrhythmias present)., Post-op/Post-Proc Start: 04-12-2024 End: 04-17-2024 meclizine hydrochloride 25 mg oral tablet (20 sources) Antiemetic Start: 01-09-2015 End: 09-14-2018 take 1 tablet by mouth every six hours as needed for dizziness Meclizine 25 MG tablet Discontinued 25 mg PO EVERY 6 HOURS as needed for Dizziness January 09, 2015 12:00am September 14, 2018 3:53pm melatonin 3 mg oral tablet (20 sources) Start: 10-01-2024 End: 10-08-2024 take 6 mg by mouth once daily at bedtime 6 mg, Oral, DAILY AT BEDTIME, First dose on Fri10/01/24 at 2130, Until Discontinued Start: 04-22-2024 End: 04-22-2024 take 3 mg by mouth once daily at bedtime as needed 3 mg, Oral, DAILY AT BEDTIME NEEDED, Starting on Meme 04/22/24 at 1032, Until Meme 04/22/24 at 1716, Insomnia, Post-op/Post-Proc Start: 04-12-2024 End: 04-17-2024 take 6 mg by mouth once daily at bedtime as needed 6 mg, Oral, DAILY AT BEDTIME NEEDED, Starting on 04/12/24 at 2256, Until 04/17/24 at 1737, Insomnia Start: 08-11-2023 take 2 tablets by mo uth at bedtime as needed Melatonin 5 mg tablet Active 10 mg PO BEDTIME as needed for insomnia August 11, 2023 12:00am Start: 08-11-2023 take 10 mg by mouth at bedtime Melatonin Active 10 MG PO BEDTIME August 11, 2023 12:00am Start: 01-19-2021 End: 08-11-2023 take 1 capsule by mouth at bedtime Melatonin 3 mg capsule Discontinued 3 mg PO BEDTIME January 19, 2021 12:00am August 11, 2023 10:54am take 1 tablet by wendy th once daily at bedtime melatonin 3 mg ODT Take 1 tablet by mouth daily at bedtime. Active Melatonin Gummie s 5 MG Chew Tab Chew 2 tablets at bedtime. Active End: 04-13-2024 take 1 tablet by mouth at bedtime Melatonin 3 MG tablet Take 1 tablet by mouth at bedtime. 04/13/2024 Discontinued (Medication Reconciliation (suppress cancel msg)) Comment on above: Take 1 tablet by wendy th daily at bedtime. Melatonin / pyridoxine (20 sources) Start: 01-09-2015 End: 03-17-2018 Melatonin-Pyridoxine (Vit B6) Discontinued 1 EACH PO AT BEDTIME January 08, 2015 11:00pm March 17, 2018 4:04pm Start: 01-09-2015 End: 03-17-2018 Melatonin-Pyridoxine (Vit B6 ) Discontinued 1 EACH PO AT BEDTIME January 09, 2015 12:00am March 17, 2018 5:04pm Melatonin-Pyridoxine (Vit B6) 1 EACH tablet (9 sources) Start: 01-09-2015 End: 03-17-2018 take 1 tablet by mouth at bedtime Melatonin-Pyridoxine (Vit B6) 1 EACH tablet Discontinued 1 NMA PO AT BEDTIME January 09, 2015 12:00am March 17, 2018 5:04pm methylPREDNISolone (20 sources) Corticosteroid Start: 04-22-2024 End: 04-22-2024 methylPREDNISolone (MEDROL) tablet 12 mg Start: 04-22-2024 methylPREDNIso lone 4 MG Tab Therapy Pack tablet Take 1 tablet by mouth See admin instructions. follow package directions 21 tablet 04/22/2024 Active Start: 10-11-2021 End: 12-21-2021 Methylprednisolone 4 mg tabl ets,dose pack Discontinued 4 mg PO October 11, 2021 12:00am December 21, 2021 10:29am Milk Thistle (20 sources) Start: 03-15-2013 End: 03-17-2013 take 1 capsule by mouth once daily Milk Thistle 500 MG capsule Discontinued 500 mg PO DAILY March 15, 2013 1:00am March 17, 2013 10:44am Start: 03-15-2013 End: 03-17-2013 take 500 mg by mouth once daily Milk Thistle Discontinued 500 MG PO DAILY March 15, 2013 12:00am March 17, 2013 9:44am Start: 03-15-2013 End: 03-17-2013 take 500 mg by mouth once daily Milk Thistle Discontinued 500 MG PO DAILY March 15, 2013 1:00am March 17, 2013 10:44am Multi-Vitamins tablet 1 tablet (2 sources) Start: 10-02-2024 End: 10-08-2024 take 1 tablet by mouth once daily 1 tablet, Oral, DAILY, First dose on 10/02/24 at 0900, Until Discontinued Start: 04-13-2024 End: 04-17-2024 take 1 tablet by mouth once daily 1 tablet, Oral, DAILY, First dose on 04/13/24 at 0900, Until Discontinued Nystatin 100,000 unit/mL suspension (9 sources) Start: 04-19-2024 End: 07-31-2024 take 1 mL by mouth once daily Nystatin 100,000 unit/mL suspension Discontinued 1 mL PO daily April 19, 2024 1:00am July 31, 2024 10:39pm [place]-3 Fatty Acids (Fish Oil Concentrate) 1,000 mg capsule (20 sources) Start: 03-17-2018 End: 01-19-2021 take 1 capsule by mouth once daily [place]-3 Fatty Acids (Fish Oil Concentrate) 1,000 mg capsule Discontinued 1000 mg PO DAILY March 17, 2018 1:00am January 19, 2021 1:18pm Start: 03-17-2018 End: 01-19-2021 take 1 capsule by mouth once daily [place]-3 Fatty Acids (Fish Oil Concentrate) 1,000 mg capsule Discontinued 1000 MG PO DAILY March 17, 2018 12:00am January 19, 2021 12:18pm Start: 03-17-2018 End: 01-19-2021 take 1 capsule by mouth once daily [place]-3 Fatty Acids (Fish Oil Concentrate) 1,000 mg capsule Discontinued 1000 MG PO DAILY March 17, 2018 1:00am January 19, 2021 1:18pm [place]-3 Fatty Acids-Fish Oil (Fish Oil 1,000 Mg Capsule) 1 EACH capsule (20 sources) Start: 03-15-2013 End: 03-17-2013 take 1 capsule by mouth once daily [place]-3 Fatty Acids-Fish Oil (Fish Oil 1,000 Mg Capsule) 1 EACH capsule Discontinued 1 CAPSULE PO DAILY March 15, 2013 12:00am March 17, 2013 9:44am Start: 03-15-2013 End: 03-17-2013 take 1 capsule by mouth once daily [place]-3 Fatty Acids-Fish Oil (Fish Oil 1,000 Mg Capsule) 1 EACH capsule Discontinued 1 CAPSULE PO DAILY March 15, 2013 1:00am March 17, 2013 10:44am 2 ml ondansetron 2 mg/ml injection (10 sources) Serotonin-3 Receptor Antagonist Start: 04-22-2024 End: 04-22-2024 4 mg, Intravenous, EVERY 4 HOURS NEEDED, Starting on Meme 04/22/24 at 1032, Until Meme 04/22/24 at 1716, Nausea / Vomiting, Post-op/Post-Proc Start: 03-26-2024 End: 04-19-2024 take 1 tablet by mouth every eight hours as needed for nausea and vomiting Ondansetron 4 mg tablet,disintegrating Discontinued 4 mg PO Q8H as needed for nausea and vomiting March 26, 2024 1:00am April 19, 2024 10:49am oxyCODONE (20 sources) Opioid Agonist Start: 10-07-2024 End: 10-08-2024 take 1 tablet by mouth every four hours as needed oxyCODONE (ROXICODONE) tablet 5 mg Start: 04-22-2024 End: 04-22-2024 take 1 tablet by mouth every four hours as needed oxyCODONE (ROXICODONE) tablet 5 mg Start: 01-01-2022 End: 05-15-2022 take 1 tablet by mouth every six hours as needed for pain oxyCODONE IR (ROXICODONE) 5 mg immediate release tablet Indications: Acute postoperative pain Take 1 tablet by mouth every 6 hours as needed for pain. 5 tablet 0 01/01/2022 05/15/2022 Discontinued (Discontinued by Patient) Start: 10-13-2016 End: 09-08-2017 take 1 tablet by mouth every four hours as needed for pain Oxycodone 5 MG tablet Discontinued 5 mg PO EVERY 4 HOURS NEEDED as needed for Pain October 13, 2016 12:00am September 08, 2017 3:46pm Comment on above: Take 1 tablet by wendy th every 6 hours as needed for pain. pantoprazole 40 mg delayed release oral tablet (11 sources) Proton Pump Inhibitor Start: End: take 40 mg by mouth once daily 40 mg, Oral, DAILY, First dose on Fri10/02/24 at 0900, Until Discontinued, Swallow whole; do not crush or chew., Indications: Continuation of Home Therapy Start: 04-22-2024 End: 04-22-2024 Pantopraz[address] abad gomez DR Indications: Prevention of esophageal injury after catheter ablation Take 1 tablet by mouth daily. Take for 30 days then stop. 30 tablet 04/22/2024 04/22/2024 Discontinued (Stop Taking at Discharge) Start: 04-13-2024 End: 04-17-2024 take 40 mg by mouth once daily 40 mg, Oral, DAILY, Fir st dose on Fri04/13/24 at 0900, Until Discontinued, Swallow whole; do not crush or chew., Indications: Continuation of Home Therapy Start: 03-07-2021 End: 12-24-2021 take 1 tablet by mouth once daily before breakfast pantoprazole DR (PROTONIX) 40 mg tablet Take 1 tablet by mouth daily before breakfast. Take on empty stomach, 1/2 hr before meal. 90 tablet 3 07/10/2021 12/24/2021 Discontinued Comment on above: Take 1 tablet by wendy daily before breakfast. Take on empty stomach, 1/2 hr before meal. Perflutren Lipid Microsphere (DEFINITY) 1.5 mL in Normal saline flush 0.9% 8.5 mL (1 source) Start: 04-14-2024 End: 04-14-2024 1-10 mL, Intravenous, ONCE, 1 dose, On Fri04/14/24 at 1115, Dilute 1.5 mL of Definity with 8.5 mL of 0.9% sodium chloride and draw up in a 10 mL syringe. Administration during procedure. Recorded MAR dose is cumulative amount given during procedure. polyethylene glycol 3350 94020 mg powder for oral solution (6 sources) Osmotic Laxative Start: 10-01-2024 End: 10-08-2024 Start: 04-22-2024 End: 04-22-2024 17 g, Oral, DAILY NEEDED, Starting on Fri04/22/24 at 1032, Until Fri04/22/24 at 1716, Constipation 1st Line, Post-op/Post-Proc Start: 04-12-2024 End: 04-17-2024 Start: 01-01-2022 End: 01-31-2022 polyethylene glycol 3350 (NM RALAX) 17 gram/dose powder Dissolve 17 grams in 4 - 8 ounces of liquid and drink once daily as directed. 510 g 2 01/01/2022 01/31/2022 Active Comment on above: Dissolve 17 grams in 4 - 8 ounces of liquid and drink once daily as directed. polyvinyl alcohol 0.014 ml/ml / povidone 6 mg/ml ophthalmic solution (1 source) Start: End: 1 drop, Both Eyes, NEEDED, Starting on Fri10/07/24 at 1639, Until Fri10/08/24 at 1539, Dry Eyes, Patient may self-administer. microencapsulated potassium chloride 20 meq extended release oral tablet (20 sources) Start: End: take 60 mEq by mouth every eight hours 40-60 mEq, Oral, ADMINISTER DIRECTED, Starting on Fri10/05/24 at 0748, Until Fri10/08/24 at 1539, See admin instructions, If SCr less than 2.0 mg/dL 1. For Potassium 3.6 - 4.0, give 40 mEq of Potassium Chloride orally, recheck in the AM. 2. For Potassium less than 3.6, give 60 mEq Potassium Chloride orally, recheck in 8 hours. If potassium is low please administer magnesium first if indicated. Start: 10-05-2024 End: 10-08-2024 20-40 mEq, Oral, ADMINISTER DIRECTED, Starting on Fri10/05/24 at 0748, Until Fri10/08/24 at 1539, See admin instructions, If SCr 2.0 - 2.5 mg/dL 1. For Potassium 3.6-4.0, give 20 mEq potassium chloride. 2. If Potassium less than 3.6, give 40 mEq potassium chloride, recheck in AM. If SCr greater than 2.5 and potassium less than 4.0, Contact MD/LIP for replacement order. Start: 04-12-2024 End: 04-17-2024 take 60 mEq by mouth every eight hours 40-60 mEq, Oral, ADMINISTER DIRECTED, Starting on 04/12/24 at 2255, Until 04/17/24 at 1737, See admin instructions, If Cr less than 2.0 mg/dL 1. For Potassium 3.6 - 4.0, give 40 mEq of Potassium Chloride orally, recheck in the AM. 2. For Potassium less than 3.6, give 60 mEq Potassium Chloride orally, recheck in 8 hours. 3. If potassium is low please administer magnesium first if indicated. Start: 11-27-2018 End: 10-22-2024 take 1 tablet by mouth twice daily potassium chloride ER (K-DUR, KLOR-CON) 20 mEq tablet Take 1 tablet by mouth twice daily. 180 tablet 1 07/26/2019 10/22/2024 Discontinued Start: 10-10-2016 End: 04-28-2024 Potassium Chloride 20 mEq ta blet,ER particles/crystals Discontinued 20 meq PO .COMPLEX 180 January 27, 2023 11:51am April 28, 2024 5:15pm On Hold: 03/24/2024 20 mEq orally daily, may need to take twice daily when Lasix is increased for shortness of breath, weight gain or leg swelling; needs extra pills; Potassium Chlori de ER 20 MEQ Tab CR tablet Take 1 tablet by mouth daily. Take with furosemide. May need to take twice a day for shortness of breath. Active Comment on above: Take 1 tablet by [facility] twice daily. predniSONE 20 mg oral tablet (3 sources) Start: 3 End: 3 predniSONE (DELTASONE) 20 mg tablet Take two daily for 5 days. 10 tablet 0 01/27/2023 02/10/2023 Discontinued Comment on above: Take two daily for 5 days. Probiotic Product (ALIGN PO) (1 source) End: 4 Probiotic Product (ALIGN PO) Take 10.5 mg by mouth. 04/13/2024 Discontinued (Medication Reconciliation (suppress cancel msg)) rivaroxaban 20 mg oral tablet (20 sources) Factor Xa Inhibitor Start: 3 End: 3 take 1 tablet by mouth once daily Rivaroxaban (Xarelto) 20 MG tablet Discontinued 20 mg PO DAILY@0600 30 March 17, 2013 1:00am March 18, 2013 3:44pm sennosides, alf 8.6 mg oral tablet (1 source) Start: 5 End: 5 Sodium Chloride (5 sources) Start: 5 End: 5 Intravenous, at 1 mL/hr, CONTINUOUS NEEDED, Starting on Meme 10/07/24 at 1212, Until Fri10/08/24 at 1539, See administration instructions, Per pressure bag for all transduced lines., Post-op/Post-Proc Start: 10-01-2024 End: 10-08-2024 Start: 04-22-2024 End: 04-22-2024 Intravenous, at 1 mL/hr, CON TINUOUS NEEDED, Starting on Meme 04/22/24 at 1032, Until Meme 04/22/24 at 1716, See administration instructions, Per pressure bag for all transduced lines., Post-op/Post-Proc Start: 04-21-2024 End: 04-21-2024 1-100 mL, Intravenous, ONCE NEEDED, 1 dose, Starting on Fri04/21/24 at 1553, Until Fri04/21/24 at 1607, Flush, CT Procedure Start: 04-12-2024 End: 04-17-2024 traMADol hydrochloride 50 mg oral tablet (1 source) Opioid Agonist Start: 01-09-2021 End: 01-16-2021 take 1 tablet by mouth every six hours at mealtime as needed for pain traMADol (ULTRAM) 50 mg tablet Indications: Cervicalgia Take 1 tablet by mouth every 6 hours as needed for pain for up to 7 days. Take with food 24 tablet 01/09/2021 01/16/2021 valsartan 40 mg oral tablet (20 sources) Angiotensin 2 Receptor [place] Start: 10-03-2022 End: 05-19-2023 Valsartan 40 mg tablet Discontinued 20 mg PO DAILY October 03, 2022 12:00am May 19, 2023 5:56pm Start: 10-03-2022 End: 05-19-2023 take 20 mg by mouth once daily Valsartan Discontinued 20 MG PO DAILY October 03, 2022 12:00am May 19, 2023 5:56pm Start: 09-30-2022 End: 09-29-2023 take 1 tablet by mouth once daily valsartan (DIOVAN) 40 mg tablet Take 1 tablet by mouth once daily. 90 tablet 3 12/12/2022 03/30/2023 Discontinued Start: 06-18-2022 End: 08-27-2022 take 1 tablet by mouth once daily Valsartan 40 mg tablet Discontinued 40 mg PO DAILY July 11, 2022 1:00am August 27, 2022 10:26am Comment on above: Take 1 tablet by wendy th once daily. Vancomycin (VANCOCIN) 750 mg in Sodium chloride 0.9%, with overfill 282.5 mL (total volume) IVPB (1 source) Start: 10-07-2024 End: 10-07-2024 750 mg (rounded from 810 mg = 15 mg/kg 54 kg Adjusted weight), Intravenous, Administer over 1 Hours, CHEMICAL ANALYST TO PROCEDURE, 1 dose, Starting on Meme 10/07/24 at 0000, Until Meme 10/07/24 at 1128, Other, Surgical Prophylaxis, Infusion must complete prior to surgical incision. Initiate antibiotic administration 60-120 minutes prior to surgical incision (depending on Administer Over Time) Extravasation Risk, Pre-op/Pre-Proc vitamin b12 0.1 mg oral tablet (20 sources) Vitamin B12 Start: 10-02-2024 End: 10-08-2024 take 100 ug by mouth once daily 100 mcg, Oral, DAILY, First dose on [facility] 10/02/24 at 0900, Until Discontinued Start: 04-13-2015 End: 03-17-2018 Cyanocobalamin (Vitamin B-12 ) 500 MCG tablet Discontinued 5000 ug PO DAILY@799April 13, 2015 1:00am March 17, 2018 5:04pm Start: 04-13-2015 End: 03-17-2018 take 5000 ug by mouth once daily Cyanocobalamin (Vitamin B-12) Discontinued 5000 MCG PO DAILY@799April 13, 2015 1:00am March 17, 2018 5:04pm take 1 tablet by wendy once daily Cyanocobalamin (VITAMIN B-12 PO) Take 1 tablet by mouth daily. Active warfarin sodium 1 mg oral tablet (20 sources) Vitamin K Antagonist Start: 11-11-2018 End: 11-25-2019 take 1 tablet by mouth once daily Warfarin (Coumadin) 1 mg tablet Discontinued 1 mg PO DAILY July 29, 2019 10:51am November 25, 2019 4:52pm Please contact the information source for Protocol details. Start: 11-02-2018 End: 11-25-2019 take 1 tablet by mouth once daily Warfarin 3 mg tablet Discontinued 3 mg PO DAILY July 29, 2019 10:51am November 25, 2019 4:52pm Please contact the information source for Protocol details. Start: 10-27-2018 End: 11-02-2018 take 1 tablet by mouth once daily Warfarin (Coumadin) 4 mg tablet Discontinued 4 mg PO DAILY October 27, 2018 12:00am November 02, 2018 1:00pm Start: 10-08-2016 End: 09-08-2017 take 1 tablet by mouth once daily Warfarin 2 MG tablet Discontinued 2 mg PO DAILY October 10, 2016 11:11am September 08, 2017 3:47pm Start: 10-08-2016 End: 10-10-2016 Warfarin (Coumadin) 4 MG tab let Discontinued 4 mg PO MOWETHFR October 08, 2016 12:00am October 10, 2016 11:07am Problems Active Problems Problem Classification Problem Date Documented Da te Episodic/Chronic Abdominal pain (9 sources) Abdominal pain; Translations: [Unspecified abdominal pain] Episodic Acute and unspecified renal failure (20 sources) Injury of kidney; Translations: [Acute kidney failure, unspecified] 12-31-2022 Episodic Acute bronchitis (1 source) Acute bronchitis; Translations: [Acute bronchitis, unspecified] 01-27-2023 Episodic Acute cerebrovascular disease (20 sources) Ischemic stroke; Translations: [Cerebral infarction, unspecified] 08-08-2022 Chronic Administrative/social admission (1 source) Education and/or schooling finding; Translations: [Problems related to education and literacy, unspecified] Episodic Allergic reactions (1 source) Inflammatory dermatosis; Translations: [Dermatitis, unspecified] 09-29-2023 Episodic Biliary tract disease (20 sources) Acute cholecystitis; Translations: [Acute cholecystitis] 11-02-2018 Episodic Cardiac dysrhythmias (20 sources) Atrial fibrillation; Translations: [Unspecified atrial fibrillation] Onset: 5 05-07-2021 Chronic Comment on above: DCC 2012, 2014, 10/11 08/28, 11/23/18; March 2024; April 2024; Cardiac dysrhythmias (20 sources) Tachycardia; Translations: [Tachycardia, unspecified] Onset: 5 04-15-2022 Episodic Chronic kidney disease (1 source) Chronic kidney disease, unspecified; Translations: [Chronic kidney disease, unspecified] Onset: 5 Chronic Chronic obstructive pulmonary disease and bronchiectasis (20 sources) Panacinar emphysema; 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] Onset: 5 Resolved: 3 04-28-2015 Chronic Coagulation and hemorrhagic disorders (20 sources) Finding related to bruising; Translations: [Spontaneous ecchymoses] 03-06-2022 Episodic Conditions associated with dizziness or vertigo (13 sources) Dizziness; Translations: [Dizziness and giddiness] Onset: 4 12-11-2023 Episodic Conduction disorders (12 sources) Complete atrioventricular block; Translations: [Atrioventricular block, complete] Onset: 5 10-14-2024 Chronic Comment on above: Acquired from AVN ab lation Congestive heart failure; nonhypertensive (20 sources) Congestive heart failure; Translations: [Heart failure, unspecified] Onset: 2 Chronic Delirium, dementia, and amnestic and other cognitive disorders (2 sources) Frailty; Translations: [Age-related physical debility] Onset: 4 04-02-2024 Chronic E Codes: Fall (13 sources) Fall; Translations: [Unspecified fall, initial encounter] 01-23-2023 Episodic Esophageal disorders (20 sources) Moses's esophagus; 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] Onset: 7 Resolved: 6 01-26-2018 Chronic Essential hypertension (20 sources) Hypertensive disorder; Translations: [Essential (primary) hypertension] Onset: 4 07-21-2013 Chronic Fever of unknown origin (9 sources) Fever with chills; Translations: [Fever, unspecified] Episodic Gastrointestinal hemorrhage (3 sources) Hematochezia; Translations: [Melena] 12-26-2022 Episodic Headache; including migraine (2 sources) Headache; including migraine Onset: 4 Heart valve disorders (20 sources) Aortic stenosis, non-rheumatic ; Translations: [Nonrheumatic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) stenosis] 11-12-2018 Chronic Immunizations and screening for infectious disease (1 source) Needs influenza immunization; Translations: [Encounter for immunization] Episodic Intestinal infection (2 sources) Clostridium difficile diarrhea; Translations: [Enterocolitis due to Clostridium difficile, not specified as recurrent] 12-30-2022 Episodic Malignant neoplasm without specification of site (20 sources) Malignant neoplastic disease; Translations: [Malignant (primary) neoplasm, unspecified] 03-06-2022 Chronic Mycoses (5 sources) Candidiasis of mouth; Translations: [Candidal stomatitis] Onset: 4 06-30-2023 Episodic Nausea and vomiting (1 source) Nausea; Translations: [Nausea] Episodic Nonspecific chest pain (20 sources) Chest pain; Translations: [Chest pain, unspecified] 05-05-2022 Episodic Nutritional deficiencies (1 source) Vitamin D deficiency; Translations: [Vitamin D deficiency, unspecified] Chronic Nutritional deficiencies (1 source) Cobalamin deficiency; Translations: [Deficiency of other specified B group vitamins] Episodic Open wounds of head; neck; and trunk (10 sources) Tear of skin; Translations: [Skin tear] 09-05-2023 Episodic Osteoarthritis (20 sources) Arthritis; Translations: [Unspecified osteoarthritis, unspecified site] Onset: 6 05-07-2021 Chronic Other aftercare (20 sources) Long-term current use of anticoagulant; Translations: [residential (current) use of anticoagulants] 04-27-2022 Episodic Other aftercare (4 sources) residential (current) use of anticoagulants; Translations: [Long-term (current) use of anticoagulants] 08-08-2022 Episodic Other aftercare (1 source) residential current use of non-steroidal anti-inflammatory drug; Translations: [Encounter for therapeutic drug level monitoring] 04-02-2024 Episodic Other aftercare (1 source) Taking high risk medication; Translations: [Other long-term (current) drug therapy] 04-14-2024 Episodic Other aftercare (9 sources) Long-term current use of drug therapy; Translations: [Encounter for therapeutic drug level monitoring] 03-06-2022 Episodic Other aftercare (3 sources) Other [employer] (current) drug therapy; Translations: [Other long-term (current) drug therapy] Onset: Episodic Other and ill-defined cerebrovascular disease (20 sources) Aneurysm of left internal carotid artery; 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, nonruptured] 08-27-2022 Chronic Comment on above: 2mm Other and ill-defined cerebrovascular disease (9 sources) Cerebral aneurysm, nonruptured; 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, nonruptured] Onset: 4 08-27-2022 Chronic Other and ill-defined heart disease (20 sources) Heart disease; Translations: [Heart disease, unspecified] 03-06-2022 Chronic Other and unspecified benign neoplasm (3 sources) History of polyp of colon; Translations: [Personal history of colonic polyps] Episodic Other circulatory disease (1 source) History of cerebrovascular accident; Translations: [Personal history of transient ischemic attack (TIA), and cerebral infarction without residual deficits] 06-30-2023 Episodic Other connective tissue disease (20 sources) Internal impingement of bilateral shoulders; Translations: [Impingement syndrome of right shoulder] 06-25-2021 Episodic Other connective tissue disease (17 sources) Impingement syndrome of right shoulder; Translations: [Other affections of shoulder region, not elsewhere classified] Episodic Other connective tissue disease (20 sources) Muscle weakness; Translations: [Muscle weakness (generalized)] 05-05-2022 Episodic Other connective tissue disease (2 sources) Unspecified rotator cuff tear or rupture of left shoulder, not specified as traumatic; Translations: [Rotator cuff (capsule) sprain] 09-02-2022 Episodic Other connective tissue disease (14 sources) Tear of left rotator cuff; Translations: [Unspecified rotator cuff tear or rupture of left shoulder, not specified as traumatic] 01-10-2023 Episodic Other diseases of bladder and urethra (2 sources) Overactive bladder; Translations: [Overactive bladder] Chronic Other diseases of kidney and ureters (1 source) Abnormal renal function; Translations: [Disorder of kidney and ureter, unspecified] 01-03-2023 Episodic Other gastrointestinal disorders (20 sources) Diarrhea; Translations: [Diarrhea, unspecified] 03-06-2022 Episodic Other gastrointestinal disorders (5 sources) Dysphagia; Translations: [Dysphagia, unspecified] Episodic Other gastrointestinal disorders (4 sources) Altered bowel function; Translations: [Change in bowel habit] Episodic Other gastrointestinal disorders (1 source) Mucus in stool; Translations: [Other fecal abnormalities] 12-26-2022 Episodic Other gastrointestinal disorders (1 source) Dark stools; Translations: [Other fecal abnormalities] 12-26-2022 Episodic Other gastrointestinal disorders (1 source) Dysphagia, unspecified; Translations: [Dysphagia, unspecified type] Onset: Episodic Other infections; including parasitic (1 source) History of Clostridium difficile intestinal infection; Translations: [Personal history of other infectious and parasitic diseases] 02-23-2023 Episodic Other injuries and conditions due to external causes (1 source) Injury of left foot; Translations: [Unspecified injury of left foot, initial encounter] 06-05-2020 Episodic Other liver diseases (1 source) Elevated liver enzymes level; Translations: [Abnormal levels of other serum enzymes] Episodic Other lower respiratory disease (20 sources) Dyspnea; Translations: [Shortness of breath] Episodic Other lower respiratory disease (1 source) Difficulty breathing; Translations: [Other abnormalities of breathing] Episodic Other lower respiratory disease (20 sources) Dyspnea on exertion; Translations: [Other forms of dyspnea] 05-05-2022 Episodic Other lower respiratory disease (4 sources) Cough; Translations: [Cough, unspecified type] 12-12-2022 Episodic Other lower respiratory disease (2 sources) Wheezing; Translations: [Wheezing] 12-12-2022 Episodic Other lower respiratory disease (1 source) Rib tender; Translations: [Pleurodynia] 09-26-2022 Episodic Other lower respiratory disease (2 sources) Cough; Translations: [Acute cough] 03-15-2022 Episodic Other lower respiratory disease (4 sources) Multiple nodules of lung; Translations: [Other nonspecific abnormal finding of lung field] 06-17-2024 Episodic Other lower respiratory disease (1 source) Dyspnea, unspecified; Translations: [Dyspnea, unspecified type] Onset: 5 Episodic Other nervous system disorders (20 sources) Carpal tunnel syndrome of left wrist; Translations: [Carpal tunnel syndrome, left upper limb] Onset: 2 01-30-2012 Chronic Other nervous system disorders (2 sources) Carpal tunnel syndrome, left upper limb; Translations: [Carpal tunnel syndrome, left upper limb] Onset: 5 Chronic Other nervous system disorders (20 sources) Difficulty balancing when standing; Translations: [Other abnormalities of gait and mobility] 03-06-2022 Episodic Other nervous system disorders (1 source) Impairment of balance; Translations: [Other abnormalities of gait and mobility] 04-02-2024 Episodic Other non-traumatic joint disorders (20 sources) Pain of right sternoclavicular joint; Translations: [Pain in right shoulder] 06-25-2021 Episodic Other non-traumatic joint disorders (10 sources) Pain in right shoulder; Translations: [Pain in joint, shoulder region] Episodic Other non-traumatic joint disorders (20 sources) Shoulder pain; Translations: [Pain in unspecified shoulder] 03-06-2022 Episodic Other non-traumatic joint disorders (20 sources) Hip pain; Translations: [Pain in left hip] 08-05-2023 Episodic Other non-traumatic joint disorders (1 source) Pain in left hip; Translations: [Pain in joint, pelvic region and thigh] 08-05-2023 Episodic Other non-traumatic joint disorders (2 sources) Pain in right hip; Translations: [Pain in joint, pelvic region and thigh] Onset: 5 08-15-2023 Episodic Other nutritional; endocrine; and metabolic disorders (1 source) Decrease in appetite; Translations: [Anorexia] Episodic Other upper respiratory disease (1 source) Nasal sinus problem; Translations: [Other specified disorders of nose and nasal sinuses] 08-11-2024 Episodic Other upper respiratory infections (1 source) Viral sinusitis; Translations: [Chronic sinusitis, unspecified] 07-15-2024 Chronic Other upper respiratory infections (20 sources) Sore throat symptom; Translations: [Acute pharyngitis, unspecified] Episodic Otitis media and related conditions (1 source) Acute otitis media; Translations: [Otitis media, unspecified, unspecified ear] 07-15-2024 Episodic Peripheral and visceral atherosclerosis (20 sources) Peripheral vascular disease, unspecified; Translations: [Peripheral vascular disease, unspecified] Onset: 4 Chronic Pneumonia (except that caused by tuberculosis or sexually transmitted disease) (12 sources) Infective pneumonia; Translations: [Pneumonia, unspecified organism] Episodic Prolapse of female genital organs (20 sources) Incomplete uterovaginal prolapse; Translations: [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] Onset: 2 Chronic Residual codes; unclassified (20 sources) Pain; Translations: [Pain, unspecified] 06-25-2021 Episodic Residual codes; unclassified (20 sources) History of hernia repair; Translations: [Other specified postprocedural states] 11-01-2018 Episodic Residual codes; unclassified (20 sources) Bilateral lower limb edema; Translations: [Localized edema] Episodic Residual codes; unclassified (1 source) Chill; Translations: [Chills (without fever)] Episodic Residual codes; unclassified (4 sources) Localized edema; Translations: [Edema] 12-31-2022 Episodic Residual codes; unclassified (3 sources) History of clinical finding in subject; Translations: [Personal history of other medical treatment] 01-03-2023 Episodic Residual codes; unclassified (1 source) Memory impairment; Translations: [Other amnesia] 04-02-2024 Episodic Residual codes; unclassified (4 sources) History of ablation of atrioventricular node; Translations: [Other specified postprocedural states] 10-14-2024 Episodic Residual codes; unclassified (1 source) Dependent edema; Translations: [Edema, unspecified] 10-22-2024 Episodic Residual codes; unclassified (1 source) Other specified postprocedural states; Translations: [Other specified postprocedural states] Onset: 5 Episodic Residual codes; unclassified (1 source) Personal history of other medical treatment; Translations: [History of recent hospitalization] Onset: 5 Episodic Residual codes; unclassified (1 source) Edema, unspecified; Translations: [Dependent edema] Onset: Episodic Respiratory failure; insufficiency; arrest (adult) (2 sources) Dependence on supplemental oxygen; Translations: [Dependence on supplemental oxygen] 01-03-2023 Chronic Respiratory failure; insufficiency; arrest (adult) (20 sources) Acute respiratory failure; Translations: [Acute respiratory failure with hypoxia] 12-31-2022 Episodic Spondylosis; intervertebral disc disorders; other back problems (20 sources) Cervical spondylosis; Translations: [Other spondylosis with myelopathy, cervical region] Onset: 3 01-19-2021 Chronic Spondylosis; intervertebral disc disorders; other back problems (20 sources) Chronic pain; Translations: [Cervicalgia] Onset: 5 03-06-2022 Episodic Superficial injury; contusion (11 sources) Contusion of face; Translations: [Contusion of other part of head, initial encounter] 09-05-2023 Episodic Transient cerebral ischemia (6 sources) Transient cerebral ischemia; Translations: [Transient cerebral ischemic attack, unspecified] Onset: 3 09-13-2022 Chronic Unclassified (4 sources) Other persistent atrial fibrillation; Translations: [Other persistent atrial fibrillation] Onset: 4 Urinary tract infections (3 sources) Urinary tract infectious disease; Translations: [Urinary tract infection, site not specified] Onset: 5 Episodic Viral infection (2 sources) Disease caused by 2019-nCoV; Translations: [COVID-19] 03-17-2023 Episodic Past or Other Problems Problem Classification Problem Date Documented Da te Episodic/Chronic Abdominal hernia (20 sources) Gastroesophageal reflux disease with hiatal hernia; Translations: [Diaphragmatic hernia without obstruction or gangrene] Onset: 1 Resolved: 6 Episodic Anxiety disorders (20 sources) Generalized anxiety disorder; Translations: [Generalized anxiety disorder] Onset: 9 Resolved: 6 01-10-2016 Chronic Calculus of urinary tract (20 sources) Kidney stone; Translations: [Calculus of kidney] Onset: 7 07-16-2006 Episodic Genitourinary symptoms and ill-defined conditions (20 sources) Increased frequency of urination; Translations: [Frequency of micturition] Onset: 4 Resolved: 6 Episodic Heart valve disorders (20 sources) Heart murmur; Translations: [Cardiac murmur, unspecified] Onset: 2 Episodic Malaise and fatigue (20 sources) Fatigue; Translations: [Other fatigue] Onset: 4 Episodic Other aftercare (1 source) Encounter for therapeutic drug level monitoring; Translations: [Encounter for monitoring chronic NSAID therapy] Onset: 4 Episodic Other aftercare (1 source) membership director (current) use of non-steroidal anti-inflammatories (NSAID); Translations: [Encounter for monitoring chronic NSAID therapy] Onset: 4 Episodic Other connective tissue disease (20 sources) [...] Onset: 6 02-14-2016 Episodic Other gastrointestinal disorders (20 sources) Irritable bowel syndrome; Translations: [Irritable bowel syndrome without diarrhea] Onset: 7 Resolved: 6 05-07-2021 Chronic Other lower respiratory disease (14 sources) Shortness of breath; Translations: [Shortness of breath] Onset: 5 Episodic Other lower respiratory disease (1 source) Other forms of dyspnea; Translations: [Other forms of dyspnea] Onset: 4 Episodic Other lower respiratory disease (1 source) Other nonspecific abnormal finding of lung field; Translations: [Lung nodules] Onset: 5 Episodic Other nervous system disorders (20 sources) Carpal tunnel syndrome of right wrist; Translations: [Carpal tunnel syndrome, right upper limb] Onset: 2 Resolved: 6 01-10-2016 Chronic Other nervous system disorders (1 source) Other abnormalities of gait and mobility; Translations: [Balance disorder] Onset: 4 Episodic Other non-epithelial cancer of skin (20 sources) Basal cell carcinoma of skin; Translations: [Basal cell carcinoma of skin, unspecified] Onset: 2 Episodic Other non-traumatic joint disorders (20 sources) Shoulder joint pain; Translations: [Pain in unspecified shoulder] Onset: 9 Resolved: 6 09-25-2015 Episodic Other screening for suspected conditions (not mental disorders or infectious disease) (20 sources) Patient encounter status; Translations: [Encounter for screening mammogram for malignant neoplasm of breast] Onset: 6 Resolved: 6 Episodic Phlebitis; thrombophlebitis and thromboembolism (20 sources) H/O: Deep vein thrombosis; Translations: [Personal history of other venous thrombosis and embolism] Onset: 6 11-10-2015 Episodic Residual codes; unclassified (20 sources) Persistent insomnia; Translations: [Insomnia, unspecified] Onset: 7 09-25-2015 Episodic Residual codes; unclassified (1 source) Other amnesia; Translations: [Memory deficit] Onset: 4 Episodic Screening and history of mental health and substance abuse codes (20 sources) Tobacco use and exposure - finding; Translations: [Personal history of nicotine dependence] Onset: 4 06-09-2013 Episodic Sprains and strains (20 sources) Strain of hamstring muscle; Translations: [Strain of muscle, fascia and tendon of the posterior muscle group at thigh level, unspecified thigh, initial encounter] Onset: 2 Resolved: 6 08-05-2023 Episodic Substance-related disorders (20 sources) Tobacco user; Translations: [Nicotine dependence, unspecified, uncomplicated] Onset: 7 Resolved: 6 01-10-2016 Chronic Unclassified (20 sources) ovarian surgery 11-01-2018 Results Test Name Value Interpretation Reference Range Facility CNOVon 10-22-2024 CNOV Office Visit (INTMWS ) PERSAUDELIZABETH Steen ([id number]) 1945 F MISSAEL Date Time Provider Department 10/22/24 8:20 AM DIANNA BALLARD During your visit today, we recorded the following information about you: Temperature Pulse Respiration Blood pressure 97.1 degrees 76/minute 16/minute 128/84 Weight 62.6 kg Dianna Ballard APRN.[employer] 10/22/2024 10:38 AM Signed CC: Patient presents with: Recheck: Hospital follow up HPI Elizabeth Persaud is a 79 year old female who presents today for hospital follow up. Recording using [employer] software for draft documentation of the visit was discussed with the patient/authorized business development representative; all questions welcomed and answered. Patient/authorized business development representative agreed to proceed Atrial Fibrillation: - Recent hospitalization at [facility] for atrial fibrillation with rapid ventricular response; heart rate ranged from 140-180 bpm. - Underwent unsuccessful cardioversion, followed by ablation and pacemaker placement. - Discharged on 11/08 after a 7-day stay. - Previously on Tikosyn, discontinued due to lack of efficacy. - Currently taking Eliquis, scheduled to stop tomorrow for upcoming carpal tunnel surgery. - Concerns about Fitbit affecting pacemaker; has messaged title curator for clarification. - denies chest pain, palpitations, syncope, or headaches. Dyspnea: - not as much dyspnea but feels like she just randomly has to take a deep breath at intermittent times - occurring while sitting, walking, and during sleep. - No associated cough, ill symptoms, palpitations or chest pressure. - Mild wheezing reported but nothing outside of her typical COPD. Mild dependent edema: - Intermittent in both legs, more noticeable at night and resolves by morning. - No associated redness or tenderness. - Currently taking Lasix. Urinary Tract Infection: - Diagnosed with UTI during recent hospitalization, treated with 5 days of IV antibiotics followed by oral antibiotics. - No current dysuria, abdominal pain, vomiting, bowel changes, fever, or chills. - Reports occasional nausea, attributed to vitamin intake that is chronic. Positional Vertigo: - Longstanding history of positional vertigo. - no change in this or concerns but would like to try acupuncture. REVIEW OF SYSTEMS See HPI PAST MEDICAL HISTORY Diagnosis Date Anxiety Arthritis Atrial fibrillation (HCC) s/p ablation 07/2015 Backache, unspecified Moses's esophagus Basal cell carcinoma BPPV (benign paroxysmal positional vertigo) Cancer (HCC) Basal cell on forehead Carpal [...] TUBE ABDL/VAG APPR UNI/BI Tubal ligation NEUROPLASTY AND/TRANSPOS MEDIAN NRV CARPAL TUNNE 02/14/2012 Carpal tunnel [...] surgery with implants- Dr Jacob Aguilar at [facility] PAST SURGICAL HISTORY OF 07/27/2015 cryo ablation, cardiac PAST SURGICAL HISTORY OF cardiac ablation RPR UMBILICAL HRNA 5 YRS/> REDUCIBLE 07/17/2010 Hernia repair, umbilical >5yr [facility] Dr Manuel Hoover SHX COSMETIC SURGERY SKIN BIOPSY HX ALLERGIES Cardizem [Diltiazem Hcl], Codeine, Entex [Phenylephrine-Guaifenesin] , Etodolac, Meloxicam, Naproxen, Tape [Adhesive Tape (Rosins)], Trazodone, and Zantac [Ranitidine Hcl] MEDICATIONS nystatin (MYCOSTATIN) 100,000 unit/mL suspension Take 4 mL by mouth fou (more content not included)... Normal [facility] MR/PAT.Marcelina 10-22-2024 MR/PAT.MIKAELA [facility] Medical Records Department [address] [place] [address] PAT - Anesthesia 10/22/24 1156 MR#: [id number] Acct: [id number] Name: ELIZABETH PERSAUD Rep #: [id number] : 1945 79 From: Jey Streeter MD PCP: Dr. 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 When Was Last Pacemaker Check QUESTION #4 FULL TEXT: You/Your Family Experience fever (hyperthermia) with Anesthesia Last Oral Intake Last Oral intake: Last Oral Intake NPO since Meds taken in AM with sips of water? Meds patient instructed to take am of surgery PONV PONV - hedge fund accountant: PONV - hedge fund accountant Female Yes 10/22/24 10:36 HX of Motion Sickness Yes 10/22/24 10:36 HX of N/V After Surgery No 10/22/24 10:36 Non-Smoker Yes 10/22/24 10:36 Duration of Surgery greater No 10/22/24 10:36 than 60 minutes Number of Risk Factors 3 10/22/24 10:36 PONV Score Moderate Risk 10/22/24 10:36 Height Weight Height Weight: Anesthesia: Height Weight Height 5 ft 10/15/24 10:29 Respiratory Assessment Respiratory Assessment - hedge fund accountant: Respiratory Tract Infection Hx - hedge fund accountant Hx Respiratory Tract Infection No 10/22/24 10:36 STOP Sleep Apnea STOP Sleep Apnea - hedge fund accountant: STOP Sleep Apnea - hedge fund accountant Hx Hypertension Yes: ON MEDS 10/22/24 10:36 Hx Sleep Apnea No 10/22/24 10:36 CPAP No 08/11/23 09:13 BIPAP No 08/11/23 09:13 Do you snore loudly (louder No 10/22/24 10:36 than talking or can be heard Do you often feel tired/ No 10/22/24 10:36 fatigued/ sleepy during daytime? Has anyone observed you stop No 10/22/24 10:36 breathing during sleep? STOP Results Negative 10/22/24 10:36 QUESTION #5 FULL TEXT : Do you snore loudly (louder than talking or can be heard through closed doors)? 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 Specify any problems Hx of Preganancy in last 3 No 10/22/24 10:36 Months Nurse Filling Out Transfusion JZOLLINGE 10/22/24 10:36 Questions: Date: 10/22/24 10/22/24 10:36 Time: 10:38 10/22/24 10:36 Patient unable to answer at this time (ie. confused, unrespo /Reproduction History /Reproductive History - hedge fund accountant: /Reproductive Hx- hedge fund accountant Hx Now No 10/22/24 10:36 Gestational Age (in weeks): EDC: Hx Hx Para Hx Section SAB No 10/22/24 10:36 Active Medications Active Medications: Current Medications Generic Name Dose Route Start Last Admin Trade Name Freq PRN Reason Stop Dose Admin Cefazolin Sodium 2 gm/ Sodium 110 mls @ 150 mls/hr 10/25/24 07:30 Chloride IV 10/25/24 08:13 INTRAOP ONE [facility] Medical History (Updated 10/22/24 @ 10:36 by Tiff Jaquez) Wears hearing aid Wears dentures Stroke/cerebrovascular accident Former smoker Complete AV block Presence of cardiac pacemaker Osteoarthritis of right hip Right hip pain Hamstring muscle strain Left hip pain Acute stroke due to ischemia Tubular adenoma of colon URI (upper respiratory infection) Chronic neck and back pain Difficulty balancing when standing Abnormal bruising Diarrhea Chest pain Heart disease Shoul (more content not included)... Normal [facility] Basic metabolic 2000 panelon 10-18-2024 Anion gap [Moles/Vol] 15 mmol/L Normal 8-15 [facility] Comment on above: Order Comment: Speci men Type: BLOOD SPECIMENOrdering Facility: [facility] Address: [address] [place] [address] Performed By: #### 2 4321-2, 48212-9 ####[facility] LABCLIA [id number] [facility] [address] [place] [address] [place] Calcium [Mass/Vol] 9.7 mg/dL Normal 8.5-10.2 [facility] Comment on above: Order Comment: Speci men Type: BLOOD SPECIMENOrdering Facility: [facility] Address: [address] [place], [place] [id number] Performed By: #### 2 4320-2, ####[facility] LABCLIA [id number] [facility] [address] [place] [address] [place] Chloride [Moles/Vol] 100 mmol/L Normal 98-107 [facility] Comment on above: Order Comment: Speci men Type: BLOOD SPECIMENOrdering Facility: [facility] Address: [address] [place] [address] Performed By: #### 2 2, ####[facility] LABCLIA [id number] [address] [place] [address] [place] CO2 [Moles/Vol] 27 mmol/L Normal 22-[address] [facility] Comment on above: Order Comment: Speci men Type: BLOOD SPECIMENOrdering Facility: [facility] Address: [address] [place], [place] [id number] Performed By: #### 2 2, ####[facility] LABCLIA [id number] [address] [address] [place] Creatinine [Mass/Vol] 1.00 mg/dL High 0.58-0.96 [facility] Comment on above: Order Comment: Speci men Type: BLOOD SPECIMENOrdering Facility: [facility] Address: [address] [place], [place] [id number] Performed By: #### 2 2, ####[facility] LABCLIA [id number] [address] [address] [place] Creatinine and Glomerular filtration rate.predicted panel (S/P/Bld) 58 mL/min/1.73m??? Low >=[address] [facility] Comment on above: Order Comment: Darryl cintron Type: BLOOD SPECIMENOrdering Facility: [facility] Address: [address] [place] [address] Result Comment: Natasha mated Glomerular Filtration Rate (eGFR) is calculated using the 2020 CKD-EPI creatinine equation. This equation utilizes serum creatinine, sex, and age as parameters. The creatinine assay has traceable calibration to isotope dilution-mass spectrometry. Refer to KDIGO guidelines for clinical interpretation. In patients with unstable renal function, e.g. those with acute kidney injury, the eGFR may not accurately reflect actual GFR. Performed By: #### 2 4321-2, ####[facility] LABIA [id number] [place] [address] [place] Glucose [Mass/Vol] 104 mg/dL High 74-99 [facility] Comment on above: Order Comment: Darryl cintron Type: BLOOD SPECIMENOrdering Facility: [facility] Address: [address] [place] [address] Result Comment: The [place] Diabetes Association (ADA) provides guidance for cutoff values for fasting glucose and random glucose. The ADA defines fasting as no caloric intake for at least 8 hours. Fasting plasma glucose results between 100 to 125 [...] Standards of Medical Care in Diabetes 2016, [place] [employer]. Diabetes Care. 2016.39(Suppl 1). Performed By: #### 2 4321-2, ####[facility] LABIA [id number] [place] [id number] [place] Potassium [Moles/Vol] 4.0 mmol/L Normal 3.7-5.1 [facility] Comment on above: Order Comment: Speci men Type: BLOOD SPECIMENOrdering Facility: [facility] Address: [address] [place] [id number] Performed By: #### 2 4321-2, ####[facility] LABCLIA [id number] [address] [place] [address] [place] Sodium [Moles/Vol] 142 mmol/L Normal 136-144 [facility] Comment on above: Order Comment: Speci men Type: BLOOD SPECIMENOrdering Facility: [facility] Address: [address] [place], [place] [id number] Performed By: #### 2 4321-2, ####[facility] LABIA [id number] [place] [id number] [place] Urea nitrogen [Mass/Vol] 22 mg/dL High 7-[address] [facility] Comment on above: Order Comment: Speci men Type: BLOOD SPECIMENOrdering Facility: [facility] Address: [address] [place] [address] Performed By: #### 2 4321-2, ####[facility] LABIA [id number] [place] [id number] [place] CBC panel Auto (Bld)on 10-18 Erythrocyte distribution width (RBC) [Ratio] 13.0 % Normal 11.5-15.[address] [facility] Comment on above: Order Comment: Speci men Type: BLOOD SPECIMENOrdering Facility: [facility] Address: [address] [place], [place] [address] Performed By: #### 5 8410-2 ####[facility] LABIA [id number] [address] [address] [place] Hematocrit (Bld) [Volume fraction] 40.4 % Normal 36.0-46.[address] [facility] Comment on above: Order Comment: Speci men Type: BLOOD SPECIMENOrdering Facility: [facility] Address: [address] [place], [place] [address] Performed By: #### 5 8410-2 ####[facility] LABIA [id number] [place] [address] [place] Hemoglobin (Bld) [Mass/Vol] 13.5 g/dL Normal 11.5-15.[address] [facility] Comment on above: Order Comment: Speci men Type: BLOOD SPECIMENOrdering Facility: [facility] Address: [address] [place] [address] Performed By: #### 5 8410-2 ####[facility] LABIA [id number] [place] [address] [place] MCH (RBC) [Entitic mass] 31.3 pg Normal 26.0-34.[address] [facility] Comment on above: Order Comment: Speci men Type: BLOOD SPECIMENOrdering Facility: [facility] Address: [address] [place] [address] Performed By: #### 5 8410-2 ####[facility] LABIA [id number] [place] [address] [place] MCHC (RBC) [Mass/Vol] 33.4 g/dL Normal 30.5-36.0 [facility] Comment on above: Order Comment: Speci men Type: BLOOD SPECIMENOrdering Facility: [facility] Address: [address] [place] [address] Performed By: #### 5 8410-2 ####[facility] LABIA [id number] [place] [address] [place] MCV (RBC) [Entitic vol] 93.7 fL Normal 80.0-100.[address] [facility] Comment on above: Order Comment: Speci men Type: BLOOD SPECIMENOrdering Facility: [facility] Address: [address] [place] [address] Performed By: #### 5 8410-2 ####[facility] LABIA [id number] [place] [address] [place] Nucleated RBC (Bld) [#/Vol] 10*3/uL Normal <0.[address] [facility] Comment on above: Order Comment: Speci men Type: BLOOD SPECIMENOrdering Facility: [facility] Address: [address] [place] [address] Performed By: #### 5 8410-2 ####[facility] LABCLIA [id number] [place] [address] [place] Platelet mean volume (Bld) [Entitic vol] 10.2 fL Normal 9.0-12.[address] [facility] Comment on above: Order Comment: Speci men Type: BLOOD SPECIMENOrdering Facility: [facility] Address: [address] [place] [address] Performed By: #### 5 8410-2 ####[facility] LABCLIA [id number] [place] [address] [place] Platelets (Bld) [#/Vol] 338 10*3/uL Normal 150-[address] [facility] Comment on above: Order Comment: Speci men Type: BLOOD SPECIMENOrdering Facility: [facility] Address: [address] [place] [address] Performed By: #### 5 8410-2 ####[facility] LABIA [id number] [place] [address] [place] RBC (Bld) [#/Vol] 4.31 10*6/uL Normal 3.90-5.20 [facility] Comment on above: Order Comment: Speci men Type: BLOOD SPECIMENOrdering Facility: [facility] Address: [address] [place] [address] Performed By: #### 5 8410-2 ####[facility] LABCLIA [id number] [place] [address] [place] WBC (Bld) [#/Vol] 11.53 10*3/uL High 3.70-11.00 [facility] Comment on above: Order Comment: Speci men Type: BLOOD SPECIMENOrdering Facility: [facility] Address: [address] [place] [address] Performed By: #### 5 8410-2 ####[facility] LABCLIA [id number] [place] [id number] [place] Magnesium SerPl-mCncon 10-18 Magnesium [Mass/Vol] 2.0 mg/dL Normal 1.7-2.3 [facility] Comment on above: Order Comment: Speci men Type: BLOOD SPECIMENOrdering Facility: [facility] Address: [address] [place] [address] Performed By: #### 2 4321-2, 70925-9 ####[facility] LABCLIA [id number] [place] [address] [place] Orthopedic Visit Reporton Orthopedic Visit Report [facility] [address] [place] [address] OFFICE VISIT Date of Service: 10/15/24 MR#: [id number] Acct: [id number] Name: ELIZABETH PERSAUD Rep #: [id number] : 1945 Provider: Dr. Dragan Fink MD Age/Sex: 79/F Location: [facility] [place].JEANNETTE Status: Signed Intake Vital Signs 08/17/24 11:00 09/29/24 12:27 10/15/24 10:29 Height 5 ft 1 in 5 ft 5 ft Weight: 135 lb BMI 26.4 Intake Visit Reasons: LUMBAR SPINE Chief Complaint: Lumbar spine MRI review and nerve test Accompanied by: Self Is patient in pain?: No Allergies etodolac Allergy (Intermediate, Verified 10/15/24 10:32) Other diltiazem HCl (From Cardizem) Allergy (Verified 10/15/24 10:32) Swelling of face and neck naproxen Allergy (Verified 10/15/24 10:32) Swelling (whole body) prednisone Allergy (Verified 10/15/24 10:32) Other amiodarone Adverse Reaction (Severe, Verified 10/15/24 10:32) Severe dyspnea after taking PO Amiodarone adhesive Adverse Reaction (Verified 10/15/24 10:32) Rash albuterol Adverse Reaction (Verified 10/15/24 10:32) Other codeine Adverse Reaction (Verified 10/15/24 10:32) Vomiting hydrocodone bitartrate (From Vicodin) Adverse Reaction (Verified 10/15/24 10:32) Vomiting morphine Adverse Reaction (Verified 10/15/24 10:32) Vomiting Medications ???Medication ???Instructions ???Recorded ???Confirmed ???Type multivitamin with folic acid 400 1 tab PO DAILY supplement 03/15/13 10/15/24 History mcg tablet cyclobenzaprine 10 mg tablet 10 mg PO HS PRN muscle spasm 07/2510/15/24 History fluticasone fur. 100 mcg-umeclid 1 ea inhalation QDAY 08/11/2311/03 History 62.5 mcg-vilant 25 mcg inhalat.powder (Trelegy Ellipta) fluticasone propionate 50 2 spray intranasal QDAY PRN 10/15/24 History mcg/actuation nasal allergy symptoms spray,suspension melatonin 5 mg tablet 10 mg PO HS PRN insomnia 08/11/23 10/15/24 History empagliflozin 10 mg tablet 10 mg PO DAILY #90 tabs 12/03/23 0 10/15/24 Rx (Jardiance) omeprazole 40 mg capsule,delayed 40 mg PO QDAY 12/22/23 10/15/24 Hi story release spironolactone 25 mg tablet 25 mg PO DAILY #30 tabs 03/24/24 0 10/15/24 Rx calcium 333 mg-magnesium 133 mg-D3 1 tab PO DAILY 04/19/24 10/15/24 History 1.67 mcg-zinc 5 mg tablet dofetilide 125 mcg capsule 125 mcg PO BID 04/19/24 10/15/24 H istory sucralfate 100 mg/mL oral 10 ml PO ACHS PRN stoma 04/28/24 0 10/15/24 History suspension furosemide 20 mg tablet 40 mg PO QDAY 07/27/24 10/15/24 Hi story apixaban 5 mg tablet 5 mg PO BID #180 tabs 09/24/2411/03 Rx metoprolol succinate 25 mg 50 mg PO BID 09/29/24 10/15/24 His tory tablet,extended release 24 hr Have you fallen in the past year?: No PFSH Medical History Complete AV block Presence of cardiac pacemaker Osteoarthritis of right hip Right hip pain Hamstring muscle strain Left hip pain Acute stroke due to ischemia Tubular adenoma of colon URI (upper respiratory infection) Chronic neck and back pain Difficulty balancing when standing Abnormal bruising Diarrhea Chest pain Heart disease Shoulder pain SOB (shortness of breath) Cancer History of DVT (deep vein thrombosis) Arthritis Panlobular emphysema Atrial fibrillation Hypertension Rotator cuff tear Tendonitis of shoulder, right Carpal tunnel syndrome Calculus of kidney Moses's esophagus Paroxysmal atrial fibrillation Chronic diastolic (congestive) heart failure residential (current) use of anticoagulants Cardiomyopathy in other diseases classified elsewhere Nonrheumatic aortic valve stenosis Non-rheumatic tricuspid valve insufficiency Scoliosis of cervical spine GERD (gastroesophageal reflux disease) Surgical History Hx of atrioventricular node ablation Hx of fusion of cervical spine History of radiofrequency ablation procedure for cardiac arrhythmia (07/27/15) History of left heart catheterization (03/15/13) History of cardioversion (04/15/24) Hx of cholecystectomy H/O neck surgery ovarian surgery H/O hernia repair Family History Sister Afib Father CAD (coronary artery disease) Brother CVA (cerebral vascular accident) Mother No problems noted. Sister No problems noted. Brother Wilsons disease Brother Wilsons disease Social History Smoking Status: Former smoker alcohol intake: never substance use type: does not use caffeine: Yes Type: coffee Number of servings: 1 what type of physical act (more content not included)... Normal [facility] Pacemaker Checkon 10-14-2024 Pacemaker Check [facility] [address] [place], [place] [address]. [address] [place], [place] [address] Pacemaker Check Date of Service: 10/14/24 1326 MR#: [id number] Acct: [id number] Name: ELIZABETH PERSAUD Rep #: [id number] : 1945 From: Cande Rasmussen Age/Sex: 79/F Location[place] [facility] [place] Status: Signed Billing Codes PM Device Codes: 55591 PM Dev Prog Eval, Single Assessment and Plan Assessment and Plan (1) Presence of cardiac pacemaker: Status: Chronic (2) Complete AV block: Status: Chronic Comment: Acquired from AVN ablation (3) Hx of atrioventricular node ablation: Status: Chronic 10/14/24 1329 Date Cande Rasmussen Cosigner Signature: Date (if applicable) CC: Normal [facility] CARDIAC RHYTHMon 10-08-2024 [facility] CBC AND ELECTRONIC DIFFon Basophils (Bld) [#/Vol] K/uL 0.00 - 0.15 K/uL [facility] Basophils/100 WBC (Bld) 0.3 % [facility] Differential cell count method Nom (Bld) Electronic Differential O [facility] Eosinophils (Bld) [#/Vol] 0.13 10*3/uL 0.00 - 0.42 K/uL [facility] Eosinophils/100 WBC (Bld) 1.3 % [facility] Erythrocyte distribution width (RBC) [Ratio] 13.2 % 10.8 - 14.9 % [facility] Hematocrit (Bld) [Volume fraction] 41.5 % 34.9 - 44.3 % [facility] Hemoglobin (Bld) [Mass/Vol] 13.5 g/dL 11.4 - 15.2 g/dL [facility] Immature granulocytes (Bld) [#/Vol] 0.05 10*3/uL NINF - 0.08 K/uL [facility] Immature granulocytes/100 WBC (Bld) 0.5 % [facility] Lymphocytes (Bld) [#/Vol] 2.52 10*3/uL 1.16 - 3.51 K/uL [facility] Lymphocytes/100 WBC (Bld) 25.1 % [facility] MCH (RBC) [Entitic mass] 31.2 pg 25.9 - 33.9 pg [facility] MCHC (RBC) [Mass/Vol] 32.5 g/dL 31.4 - 35.9 g/dL [facility] MCV (RBC) [Entitic vol] 95.8 fL 79.6 - 97.7 fL [facility] Monocytes (Bld) [#/Vol] 0.74 10*3/uL 0.22 - 0.87 K/uL [facility] Monocytes/100 WBC (Bld) 7.4 % [facility] Neutrophils (Bld) [#/Vol] 6.58 10*3/uL 1.64 - 7.28 K/uL [facility] Nucleated RBC/100 WBC (Bld) [Ratio] 0 % [facility] Platelet mean volume (Bld) [Entitic vol] 10 fL 8.5 - 12.2 fL [facility] Platelets (Bld) [#/Vol] 231 10*3/uL 150 - 393 K/uL [facility] RBC (Bld) [#/Vol] 4.33 10*6/uL [facility] Segmented neutrophils/100 WBC (Bld) 65.4 % [facility] WBC (Bld) [#/Vol] 10.05 10*3/uL 3.99 - 11.19 K/uL [facility] Abs Baso Auto < Normal 0.00-0.15 [facility] Comment on above: Performed By: #### L [id number] #### [facility] (DEFAULT) [address] [place] [address] Basophils/100 WBC (Bld) 0.3 % Normal [facility] Comment on above: Performed By: #### L AB980 #### [facility] (DEFAULT) [address] [address] DIFF STATUS Electronic Differential Normal [facility] Comment on above: Performed By: #### L AB980 #### [facility] (DEFAULT) [address] [address] Eosinophils (Bld) [#/Vol] 0.13 10*3/uL Normal 0.00-0.42 [facility] Comment on above: Performed By: #### L AB980 #### [facility] (DEFAULT) [address] [address] Eosinophils/100 WBC (Bld) 1.3 % Normal [facility] Comment on above: Performed By: #### L AB980 #### [facility] (DEFAULT) [address] [address] Hematocrit (Bld) [Volume fraction] 41.5 % Normal 34.9-44.3 [facility] Comment on above: Performed By: #### L AB980 #### [facility] (DEFAULT) [address] [address] Hemoglobin (Bld) [Mass/Vol] 13.5 g/dL Normal 11.4-15.2 [facility] Comment on above: Performed By: #### L AB980 #### [facility] (DEFAULT) [address] [address] Immature Grans % 0.5 % Normal [facility] Comment on above: Performed By: #### L AB980 #### [facility] (DEFAULT) [address] [address] Immature Grans Absolute 0.05 K/uL Normal <=0.08 [facility] Comment on above: Performed By: #### L AB980 #### [facility] (DEFAULT) [address] [address] Lymphocytes (Bld) [#/Vol] 2.52 10*3/uL Normal 1.16-3.51 [facility] Comment on above: Performed By: #### L AB980 #### [facility] (DEFAULT) [address] [address] Lymphocytes/100 WBC (Bld) 25.1 % Normal [facility] Comment on above: Performed By: #### L AB980 #### [facility] (DEFAULT) [address] [address] MCV (RBC) [Entitic vol] 95.8 fL Normal 79.6-97.7 [facility] Comment on above: Performed By: #### L AB980 #### [facility] (DEFAULT) [address] [address] Mean Cell Hgb 31.2 pg Normal 25.9-33.9 [facility] Comment on above: Performed By: #### L AB980 #### [facility] (DEFAULT) [address] [address] Mean Cell Hgb Conc 32.5 g/dL Normal 31.4-35.9 [facility] Comment on above: Performed By: #### L AB980 #### [facility] (DEFAULT) [address] [address] Monocytes (Bld) [#/Vol] 0.74 10*3/uL Normal 0.22-0.87 [facility] Comment on above: Performed By: #### L AB980 #### [facility] (DEFAULT) [address] [address] Monocytes/100 WBC (Bld) 7.4 % Normal [facility] Comment on above: Performed By: #### L AB980 #### [facility] (DEFAULT) [address] [address] Nucleated RBC 0.0 /100 WBC Normal <=0.2 [facility] Comment on above: Performed By: #### L AB980 #### [facility] (DEFAULT) [address] [place] [address] Platelet mean volume (Bld) [Entitic vol] 10.0 fL Normal 8.5-12.2 [facility] Comment on above: Performed By: #### L AB980 #### [facility] (DEFAULT) [address] [address] Platelets (Bld) [#/Vol] 231 10*3/uL Normal 150-393 [facility] Comment on above: Performed By: #### L AB980 #### [facility] (DEFAULT) [address] [address] RBC (Bld) [#/Vol] 4.33 10*6/uL Normal 3.91-5.04 [facility] Comment on above: Performed By: #### L AB980 #### [facility] (DEFAULT) [address] [place] [address] RBC Distribution 13.2 % Normal 10.8-14.9 [facility] Comment on above: Performed By: #### L AB980 #### [facility] (DEFAULT) [address] [address] Segs + Bands Auto 65.4 % Normal [facility] Comment on above: Performed By: #### L AB980 #### [facility] (DEFAULT) [address] [address] Segs + Bands,Absolute Auto 6.58 K/uL Normal 1.64-7.28 [facility] Comment on above: Performed By: #### L AB980 #### [facility] (DEFAULT) [address] [address] WBC (Bld) [#/Vol] 10.05 10*3/uL Normal 3.99-11.19 [facility] Comment on above: Performed By: #### L AB980 #### [facility] (DEFAULT) [address] [place] [address] CHEM 6 (LYTES, BUN CREA)on 0 10-08-2024 Anion gap [Moles/Vol] 14 mmol/L 7 - 17 mmol/L [facility] Chloride [Moles/Vol] 102 mmol/L 98 - 10 8 mmol/L [facility] CO2 [Moles/Vol] 28 mmol/L 21 - 31 mmol/L [facility] Creatinine [Mass/Vol] 0.85 mg/dL 0.50 - 1.20 mg/dL [facility] eGFR, CKD-EPI, Female 73 - PINF [facility] Comment on above: Reported eGFR is bas ed on the CKD-EPI 2020 equation using creatinine, age, and sex. Interpretation and review of laboratory results Abnormal [facility] Potassium [Moles/Vol] 4.2 mmol/L 3.5 - 5.0 mmol/L [facility] Sodium [Moles/Vol] 140 mmol/L 135 - 145 mmol/L [facility] Urea nitrogen [Mass/Vol] 34 mg/dL High 7 - 25 mg/dL [facility] Urea nitrogen/Creatinine [Mass ratio] 40 mg/mg [facility] Anion gap [Moles/Vol] 14 mmol/L Normal 7-17 [facility] Comment on above: Performed By: #### P TT #### [facility] (DEFAULT) [address] [place] [address] Chloride [Moles/Vol] 102 mmol/L Normal 98-108 [facility] Comment on above: Performed By: #### P TT #### [facility] (DEFAULT) [address] [place] [address] CO2 [Moles/Vol] 28 mmol/L Normal 21-31 [facility] Comment on above: Performed By: #### P TT #### [facility] (DEFAULT) [address] [place] [address] Creatinine [Mass/Vol] 0.85 mg/dL Normal 0.50-1.20 [facility] Comment on above: Performed By: #### P TT #### [facility] (DEFAULT) [address] [place] [address] GFR/1.73 sq M.predicted among non-blacks MDRD (S/P/Bld) [Vol rate/Area] 71 mL/min/{1.73_m2} Normal >=60 [facility] Comment on above: Result Comment: Repo rted eGFR is based on the CKD-EPI 2020 equation using creatinine, age, and sex. Performed By: #### P TT #### [facility] (DEFAULT) [address] [place] [address] Potassium [Moles/Vol] 4.2 mmol/L Normal 3.5-5.0 [facility] Comment on above: Performed By: #### P TT #### [facility] (DEFAULT) [address] [place] [address] Sodium [Moles/Vol] 140 mmol/L Normal 135-145 [facility] Comment on above: Performed By: #### P TT #### [facility] (DEFAULT) [address] [place] [address] Urea nitrogen [Mass/Vol] 34 mg/dL High 7-25 [facility] Comment on above: Performed By: #### P TT #### [facility] (DEFAULT) [address] [place] [address] Urea nitrogen/Creatinine [Mass ratio] 40 mg/mg Normal [facility] Comment on above: Performed By: #### P TT #### [facility] (DEFAULT) [address] [place] [address] DEVICE EVALUATIONon 10-09-19 Radiology Study observation (narrative) [facility] EP PROCEDURE - EPS/ABLATION/ DEVICEon 10-08-2024 EP PROCEDURE - EPS/ABLATION/DEVICE ? Baseline AF with rvr. pt referred for VVIR LB PCMK / AVN RFA ? LB lead placed via LSV approach, venogram used for access guidence to axillary vein ? LB lead placed along RV septum and site confirmed with V pacing / LAT timing ? Right groin access with 8 Fr sheath, AVN ablated with RFA achieving CHB ? Device programmed VVIR 90 to 120 bpm Imp - successful VVIR LB pacing / AVN ablation. Plan - cont OAC, VVIR pacing at 90-120 bpm after AVN ablation, Follow-up device clinic. ? Baseline AF with rvr. pt referred for VVIR LB PCMK / AVN RFA ? LB lead placed via LSV approach, venogram used for access guidence to axillary vein ? LB lead placed along RV septum and site confirmed with V pacing / LAT timing ? Right groin access with 8 Fr sheath, AVN ablated with RFA ? Device programmed VVIR 90 to 120 bpm Imp - successful VVIR LB pacing / AVN ablation. Plan - cont OAC, VVIR pacing at 90-120 bpm after AVN ablation, Follow-up device clinic. Table formatting from the original result was not included. Elizabeth Persaud EP Procedure - EPS/Ablation/Device Ordering Physician: ANUEL CORTES Order #: [id number] Study Date: 10/07/2024 Patient Information Name MRN Description Elizabeth Persaud [id number] 79 y.o. female Physicians Panel Physicians Referring Physician Case Authorizing Physician Landon Adhikari MD (Primary) Erlinda Casey, [employer] COORDINATOR-[employer] Anuel Cortes MD Procedures Pacemaker Generator Implant Lead Insertion AV Node Ablation Pre Procedure Diagnosis Bradycardia [R00.1] Post Procedure Diagnosis Bradycardia [R00.1] Indications Bradycardia [R00.1 (ICD-10-CM)] Conclusion ? Baseline AF with rvr. pt referred for VVIR LB PCMK / AVN RFA ? LB lead placed via LSV approach, venogram used for access guidence to axillary vein ? LB lead placed along RV septum and site confirmed with V pacing / LAT timing ? Right groin access with 8 Fr sheath, AVN ablated with RFA achieving CHB ? Device programmed VVIR 90 to 120 bpm Imp - successful VVIR LB pacing / AVN ablation. Plan - cont OAC, VVIR pacing at 90-120 bpm after AVN ablation, Follow-up device clinic. Consent The procedure was explained including the potential risks of infection, heart perforation, re-operation, and other risks pertinent to procedure. Informed consent and permission to proceed was given. Site Preparation On the day of the procedure, the patient was brought to the operating room and the groin prepped with chloraprep. Site prepped by Fritz Cano. On the day of the procedure, the patient was brought to the operating room and the left chest prepped with chloraprep. Site prepped by Tucker Tobias RN. On the day of the procedure, the patient was brought to the operating room and the groin prepped.The patient was draped in the usual sterile manner. Site prepped by Fritz Cano. On the day of the procedure, the patient was brought to the operating room and the left chest prepped.The patient was draped in the usual sterile manner. Site prepped by David Schulz RN. Device Technique Generator pocket made. After local anesthesia was infiltrated in the pre-pectoral (below fascia) region, an incision was made to accommodate the size of the hardware. This portion of the procedure was performed using blunt dissection, electrocautery, and sharp dissection. Hemostasis was then obtained using electrocautery. Legs were not elevated during venous entry access. The venous system was accessed using a single axillary vein stick (Seldinger). A new lead was placed into the LBB. The insertion technique used the following: KIT SNAP 7FR X 13CM ORANGE, CATHETER PCNG FIX 43CM 7FR 5.4FR, GUIDEWIRE TIGERWIRE .035IN X 150CM and LEAD PACING 69CM ATRIUM VENTRICLE SELECTSECURE BIPOLAR FIXED Tested the left ventricular lead. Sutured the left ventricular lead. Suture used: two 2-0 Nurolon The wound was irrigated copiously with 1 gram Ancef flush. It was then checked for hemostasis and foreign bodies. Closure used: Vicryl 2-0 and Stratafix 4-0 Drain/Packing: none Dressing: Aquacel Specimens: none Wound Classification: Clean [Class I] Estimated Blood Loss: 10 ml Ablation Ablation Site: AV node. Temperature achieved: 58 C. Energy delivered: 74 barakat. Max barakat: 100 barakat. Impedance: 83 ohms. Duration of energy delivered: 69 seconds. Num of energy applications: 1. There were no complications during the procedure. There is no junctional rhythm during energy delivery. Implants Pacemaker Pacemaker 7.4mm Mescal Xt Sr Ti Poly Kitty 50.8x42.6mm Crd 22.5 - [id number] - Implanted Inventory item: PACEMAKER 7.4MM JOHN XT SR TI POLY KITTY 50.8X42.6MM CRD 22.5 Model/Cat number: [id number] Serial number: [id number] Animal Daycare Provider: [employer]/CRM Implanted Date: 10/07/2024 Initial Device: Yes Pocket Location: Pre-pectoral As of 10/07/2024 Status: Implanted Lead Securement: 1 set screw torqued Mode: VVIR Lower Rate: 90 Upper Rat (more content not included)... Normal [facility] Electrophysiology studyon Body surface area Derived from formula 1.61 m2 [facility] Addendum by Landon Brothers MD on 10/08/2024 9:22 AM EDT Baseline AF with rvr. pt referred for VVIR LB PCMK / AVN RFA LB lead placed via LSV approach, venogram used for access guidence to axillary vein LB lead placed along RV septum and site confirmed with V pacing / LAT timing Right groin access with 8 Fr sheath, AVN ablated with RFA achieving CHB Device programmed VVIR 90 to 120 bpm Imp - successful VVIR LB pacing / AVN ablation. Plan - cont OAC, VVIR pacing at 90-120 bpm after AVN ablation, Follow-up device clinic. [facility] No Panel Informationon 10-08 [facility] CBC AND ELECTRONIC DIFFon Basophils (Bld) [#/Vol] K/uL 0.00 - 0.15 K/uL [facility] Basophils/100 WBC (Bld) 0.3 % [facility] Differential cell count method Nom (Bld) Electronic Differential O [facility] Eosinophils (Bld) [#/Vol] 0.12 10*3/uL 0.00 - 0.42 K/uL [facility] Eosinophils/100 WBC (Bld) 1.1 % [facility] Erythrocyte distribution width (RBC) [Ratio] 13.4 % 10.8 - 14.9 % [facility] Hematocrit (Bld) [Volume fraction] 39.7 % 34.9 - 44.3 % [facility] Hemoglobin (Bld) [Mass/Vol] 12.8 g/dL 11.4 - 15.2 g/dL [facility] Immature granulocytes (Bld) [#/Vol] 0.09 10*3/uL High NINF - 0.08 K/uL [facility] Immature granulocytes/100 WBC (Bld) 0.8 % [facility] Interpretation and review of laboratory results Abnormal [facility] Lymphocytes (Bld) [#/Vol] 3.52 10*3/uL High 1.16 - 3.51 K/uL [facility] Lymphocytes/100 WBC (Bld) 31 % [facility] MCH (RBC) [Entitic mass] 30.8 pg 25.9 - 33.9 pg [facility] MCHC (RBC) [Mass/Vol] 32.2 g/dL 31.4 - 35.9 g/dL [facility] MCV (RBC) [Entitic vol] 95.7 fL 79.6 - 97.7 fL [facility] Monocytes (Bld) [#/Vol] 0.94 10*3/uL High 0.22 - 0.87 K/uL [facility] Monocytes/100 WBC (Bld) 8.3 % [facility] Neutrophils (Bld) [#/Vol] 6.65 10*3/uL 1.64 - 7.28 K/uL [facility] Nucleated RBC/100 WBC (Bld) [Ratio] 0 % [facility] Platelet mean volume (Bld) [Entitic vol] 10.2 fL 8.5 - 12.2 fL [facility] Platelets (Bld) [#/Vol] 241 10*3/uL 150 - 393 K/uL [facility] RBC (Bld) [#/Vol] 4.15 10*6/uL [facility] Segmented neutrophils/100 WBC (Bld) 58.5 % [facility] WBC (Bld) [#/Vol] 11.35 10*3/uL High 3.99 - 11.19 K/uL [facility] Abs Baso Auto < Normal 0.00-0.15 [facility] Comment on above: Performed By: #### L [id number] #### [facility] (DEFAULT) [address] [address] Basophils/100 WBC (Bld) 0.3 % Normal [facility] Comment on above: Performed By: #### L [id number] #### [facility] (DEFAULT) [address] [address] DIFF STATUS Electronic Differential Normal [facility] Comment on above: Performed By: #### L [id number] #### [facility] (DEFAULT) [address] [address] Eosinophils (Bld) [#/Vol] 0.12 10*3/uL Normal 0.00-0.42 [facility] Comment on above: Performed By: #### L [id number] #### [facility] (DEFAULT) [address] [address] Eosinophils/100 WBC (Bld) 1.1 % Normal [facility] Comment on above: Performed By: #### L [id number] #### [facility] (DEFAULT) [address] [address] Hematocrit (Bld) [Volume fraction] 39.7 % Normal 34.9-44.3 [facility] Comment on above: Performed By: #### L [id number] #### [facility] (DEFAULT) [address] [address] Hemoglobin (Bld) [Mass/Vol] 12.8 g/dL Normal 11.4-15.2 [facility] Comment on above: Performed By: #### L [id number] #### [facility] (DEFAULT) [address] [address] Immature Grans % 0.8 % Normal [facility] Comment on above: Performed By: #### L [id number] #### [facility] (DEFAULT) [address] [address] Immature Grans Absolute 0.09 K/uL High <=0.08 [facility] Comment on above: Performed By: #### L [id number] #### [facility] (DEFAULT) [address] [place] [address] Lymphocytes (Bld) [#/Vol] 3.52 10*3/uL High 1.16-3.51 [facility] Comment on above: Performed By: #### L [id number] #### [facility] (DEFAULT) [address] [place] [address] Lymphocytes/100 WBC (Bld) 31.0 % Normal [facility] Comment on above: Performed By: #### L [id number] #### [facility] (DEFAULT) [address] [address] MCV (RBC) [Entitic vol] 95.7 fL Normal 79.6-97.7 [facility] Comment on above: Performed By: #### L [id number] #### [facility] (DEFAULT) [address] [address] Mean Cell Hgb 30.8 pg Normal 25.9-33.9 [facility] Comment on above: Performed By: #### L [id number] #### [facility] (DEFAULT) [address] [address] Mean Cell Hgb Conc 32.2 g/dL Normal 31.4-35.9 [facility] Comment on above: Performed By: #### L [id number] #### [facility] (DEFAULT) [address] [place] [address] Monocytes (Bld) [#/Vol] 0.94 10*3/uL High 0.22-0.87 [facility] Comment on above: Performed By: #### L [id number] #### [facility] (DEFAULT) [address] [place] [address] Monocytes/100 WBC (Bld) 8.3 % Normal [facility] Comment on above: Performed By: #### L [id number] #### [facility] (DEFAULT) [address] [address] Nucleated RBC 0.0 /100 WBC Normal <=0.2 [facility] Comment on above: Performed By: #### L [id number] #### [facility] (DEFAULT) [address] [place] [address] Platelet mean volume (Bld) [Entitic vol] 10.2 fL Normal 8.5-12.2 [facility] Comment on above: Performed By: #### L [id number] #### [facility] (DEFAULT) [address] [address] Platelets (Bld) [#/Vol] 241 10*3/uL Normal 150-393 [facility] Comment on above: Performed By: #### L [id number] #### [facility] (DEFAULT) [address] [place] [address] RBC (Bld) [#/Vol] 4.15 10*6/uL Normal 3.91-5.04 [facility] Comment on above: Performed By: #### L [id number] #### [facility] (DEFAULT) [address] [address] RBC Distribution 13.4 % Normal 10.8-14.9 [facility] Comment on above: Performed By: #### L [id number] #### [facility] (DEFAULT) [address] [place] [address] Segs + Bands Auto 58.5 % Normal [facility] Comment on above: Performed By: #### L [id number] #### [facility] (DEFAULT) [address] [address] Segs + Bands,Absolute Auto 6.65 K/uL Normal 1.64-7.28 [facility] Comment on above: Performed By: #### L [id number] #### [facility] (DEFAULT) [address] [place] [address] WBC (Bld) [#/Vol] 11.35 10*3/uL High 3.99-11.19 [facility] Comment on above: Performed By: #### L [id number] #### [facility] (DEFAULT) [address] [place] [address] CHEM 6 (LYTES, BUN CREA)on 0 10-07-2024 Anion gap [Moles/Vol] 15 mmol/L 7 - 17 mmol/L [facility] Chloride [Moles/Vol] 104 mmol/L 98 - 10 8 mmol/L [facility] CO2 [Moles/Vol] 24 mmol/L 21 - 31 mmol/L [facility] Creatinine [Mass/Vol] 1.15 mg/dL 0.50 - 1.20 mg/dL [facility] eGFR, CKD-EPI, Female 51 Low - PINF [facility] Comment on above: Reported eGFR is bas ed on the CKD-EPI 2020 equation using creatinine, age, and sex. Interpretation and review of laboratory results Abnormal [facility] Potassium [Moles/Vol] 4.1 mmol/L 3.5 - 5.0 mmol/L [facility] Sodium [Moles/Vol] 139 mmol/L 135 - 145 mmol/L [facility] Urea nitrogen [Mass/Vol] 43 mg/dL High 7 - 25 mg/dL [facility] Urea nitrogen/Creatinine [Mass ratio] 37 mg/mg [facility] Anion gap [Moles/Vol] 15 mmol/L Normal 7-17 [facility] Comment on above: Performed By: #### L [id number] #### [facility] (DEFAULT) [address] [place] [address] Chloride [Moles/Vol] 104 mmol/L Normal 98-108 [facility] Comment on above: Performed By: #### L [id number] #### [facility] (DEFAULT) [address] [place] [address] CO2 [Moles/Vol] 24 mmol/L Normal 21-31 [facility] Comment on above: Performed By: #### L [id number] #### [facility] (DEFAULT) [address] [place] [address] Creatinine [Mass/Vol] 1.15 mg/dL Normal 0.50-1.20 [facility] Comment on above: Performed By: #### L [id number] #### [facility] (DEFAULT) [address] [place] [address] GFR/1.73 sq M.predicted among non-blacks MDRD (S/P/Bld) [Vol rate/Area] 49 mL/min/{1.73_m2} Low >=60 [facility] Comment on above: Result Comment: Repo rted eGFR is based on the CKD-EPI 2020 equation using creatinine, age, and sex. Performed By: #### L [id number] #### [facility] (DEFAULT) [address] [address] Potassium [Moles/Vol] 4.1 mmol/L Normal 3.5-5.0 [facility] Comment on above: Performed By: #### L [id number] #### [facility] (DEFAULT) [address] [address] Sodium [Moles/Vol] 139 mmol/L Normal 135-145 [facility] Comment on above: Performed By: #### L [id number] #### [facility] (DEFAULT) [address] [place] [address] Urea nitrogen [Mass/Vol] 43 mg/dL High 7-25 [facility] Comment on above: Performed By: #### L [id number] #### [facility] (DEFAULT) [address] [address] Urea nitrogen/Creatinine [Mass ratio] 37 mg/mg Normal [facility] Comment on above: Performed By: #### L [id number] #### [facility] (DEFAULT) [address] [address] Electrophysiology studyon Radiology Study observation (narrative) [facility] PROTIME-INRon 10-07-2024 INR Coag (Bld) [Relative time] 1.1 {INR} 0.9 - 1.1 [facility] Interpretation and review of laboratory results Normal [facility] PT Coag (PPP) [Time] 13.7 s [facility] INR Coag (PPP) [Relative time] 1.1 {INR} Normal 0.9-1.1 [facility] Comment on above: Performed By: #### I PB, MGO, HDLT #### [facility] (DEFAULT) [address] [place] [address] PT Coag (PPP) [Time] 13.7 s Normal 11.9-14.2 [facility] Comment on above: Performed By: #### I PB, MGO, HDLT #### [facility] (DEFAULT) [address] [place] [address] PTTon 10-07-2024 aPTT Coag (PPP) [Time] 95.1 s High [facility] Interpretation and review of laboratory results Abnormal [facility] aPTT Coag (Bld) [Time] 95.1 s High 24.0-34.3 [facility] Comment on above: Order Comment: After initiation a PTT should be checked every 6 hours from time of last dose change or, if dose has not changed, 6 hours after last PTT result posted.? The frequent monitoring should occur until PTT in goal range for two consecutive lab draws without dose changes at which time PTTs may be checked no less frequently than every 12 hours.? If dose requires a change, PTT should be monitored at least every 6 hours until titration is no longer indicated, then as directed above.? If PTT above goal range refer to medication administration instructions. Results inconsistent with previous results Performed By: #### P TT #### [facility] (DEFAULT) [address] [place] [address] aPTT Coag (Bld) [Time] 80.4 s High 24.0-34.3 [facility] Comment on above: Order Comment: After initiation a PTT should be checked every 6 hours from time of last dose change or, if dose has not changed, 6 hours after last PTT result posted.? The frequent monitoring should occur until PTT in goal range for two consecutive lab draws without dose changes at which time PTTs may be checked no less frequently than every 12 hours.? If dose requires a change, PTT should be monitored at least every 6 hours until titration is no longer indicated, then as directed above.? If PTT above goal range refer to medication administration instructions. Performed By: #### I PB, MGO, HDLT #### [facility] (DEFAULT) [address] [place] [address] PTTOrdered By: Jeanette Meyer on 10-07-2024 aPTT Coag (PPP) [Time] 80.4 s High [facility] Interpretation and review of laboratory results Abnormal [facility] XR CHEST PA AND LATERAL 2 EWSon 10-07-2024 XR CHEST PA AND LATERAL 2 VIEWS EXAM: XR CHEST PA AND LATERAL 2 VIEWS, 10/07/2024 18:37 PM CLINICAL INDICATIONS: Rule out Pneumothorax Following Device Implantation RELEVANT CLINICAL HISTORY: Please complete this Xray within 2-4 hours from the completion of the procedure. Please read as a stat read. Please page the on-call EP fellow at [phone] with any emergent finding such as pneumothorax.; COMPARISON: XR CHEST 1 VIEW PORTABLE April 13, 2024 FINDINGS: New left subclavian single lead pacemaker lead. No pneumothorax. Normal heart size. Atherosclerotic calcifications in the aorta. No pulmonary edema minimal basilar volume loss. Anterior cervical spinal fusion hardware. IMPRESSION: Left subclavian single lead pacemaker placement without pneumothorax or other appreciable change. Normal [facility] XR Chest PA and Lateralon IMPRESSION: Left subclavian single lead pacemaker placement without pneumothorax or other appreciable change. OLOGY EXAM: XR CHEST PA AN D LATERAL 2 VIEWS, 10/07/2024 18:37 PM CLINICAL INDICATIONS: Rule out Pneumothorax Following Device Implantation RELEVANT CLINICAL HISTORY: Please complete this Xray within 2-4 hours from the completion of the procedure. Please read as a stat read. Please page the on-call EP fellow at [phone] with any emergent finding such as pneumothorax.; COMPARISON: XR CHEST 1 VIEW PORTABLE April 13, 2024 FINDINGS: New left subclavian single lead pacemaker lead. No pneumothorax. Normal heart size. Atherosclerotic calcifications in the aorta. No pulmonary edema minimal basilar volume loss. Anterior cervical spinal fusion hardware. RADIOLOGY Mark Gao M D, PhD - 10/07/2024 EXAM: XR CHEST PA AND LATERAL 2 VIEWS, 10/07/2024 18:37 PM CLINICAL INDICATIONS: Rule out Pneumothorax Following Device Implantation RELEVANT CLINICAL HISTORY: Please complete this Xray within 2-4 hours from the completion of the procedure. Please read as a stat read. Please page the on-call EP fellow at [phone] with any emergent finding such as pneumothorax.; COMPARISON: XR CHEST 1 VIEW PORTABLE April 13, 2024 FINDINGS: New left subclavian single lead pacemaker lead. No pneumothorax. Normal heart size. Atherosclerotic calcifications in the aorta. No pulmonary edema minimal basilar volume loss. Anterior cervical spinal fusion hardware. IMPRESSION IMPRESSION: Left subclavian single lead pacemaker placement without pneumothorax or other appreciable change. [facility] Radiology Study observation (narrative) [facility] XR Chest PA and LateralOrder ed By: Mark Gao on 10-07-2024 [facility] Work Phone: CBC,PLATELETSon 10-06-2024 Erythrocyte distribution width (RBC) [Ratio] 13.5 % 10.8 - 14.9 % [facility] Hematocrit (Bld) [Volume fraction] 42.9 % 34.9 - 44.3 % [facility] Hemoglobin (Bld) [Mass/Vol] 13.9 g/dL 11.4 - 15.2 g/dL [facility] Interpretation and review of laboratory results Abnormal [facility] MCH (RBC) [Entitic mass] 30.8 pg 25.9 - 33.9 pg [facility] MCHC (RBC) [Mass/Vol] 32.4 g/dL 31.4 - 35.9 g/dL [facility] MCV (RBC) [Entitic vol] 94.9 fL 79.6 - 97.7 fL [facility] Platelet mean volume (Bld) [Entitic vol] 10.3 fL 8.5 - 12.2 fL [facility] Platelets (Bld) [#/Vol] 320 10*3/uL 150 - 393 K/uL [facility] RBC (Bld) [#/Vol] 4.52 10*6/uL [facility] WBC (Bld) [#/Vol] 13.16 10*3/uL High 3.99 - 11.19 K/uL [facility] Hematocrit (Bld) [Volume fraction] 42.9 % Normal 34.9-44.3 [facility] Comment on above: Performed By: #### I PB, MGO, HDLT #### [facility] (DEFAULT) [address] [address] Hemoglobin (Bld) [Mass/Vol] 13.9 g/dL Normal 11.4-15.2 [facility] Comment on above: Performed By: #### I PB, MGO, HDLT #### [facility] (DEFAULT) [address] [address] MCV (RBC) [Entitic vol] 94.9 fL Normal 79.6-97.7 [facility] Comment on above: Performed By: #### I PB, MGO, HDLT #### [facility] (DEFAULT) [address] [place] [address] Mean Cell Hgb 30.8 pg Normal 25.9-33.9 [facility] Comment on above: Performed By: #### I PB, MGO, HDLT #### [facility] (DEFAULT) [address] [place] [address] Mean Cell Hgb Conc 32.4 g/dL Normal 31.4-35.9 [facility] Comment on above: Performed By: #### I PB, MGO, HDLT #### [facility] (DEFAULT) [address] [place] [address] Platelet mean volume (Bld) [Entitic vol] 10.3 fL Normal 8.5-12.2 [facility] Comment on above: Performed By: #### I PB, MGO, HDLT #### [facility] (DEFAULT) [address] [place] [address] Platelets (Bld) [#/Vol] 320 10*3/uL Normal 150-393 [facility] Comment on above: Performed By: #### I PB, MGO, HDLT #### [facility] (DEFAULT) [address] [place] [address] RBC (Bld) [#/Vol] 4.52 10*6/uL Normal 3.91-5.04 [facility] Comment on above: Performed By: #### I PB, MGO, HDLT #### [facility] (DEFAULT) [address] [place] [address] RBC Distribution 13.5 % Normal 10.8-14.9 [facility] Comment on above: Performed By: #### I PB, MGO, HDLT #### [facility] (DEFAULT) [address] [place] [address] WBC (Bld) [#/Vol] 13.16 10*3/uL High 3.99-11.19 [facility] Comment on above: Performed By: #### I PB, MGO, HDLT #### [facility] (DEFAULT) [address] [address] Erythrocyte distribution width (RBC) [Ratio] 13.4 % 10.8 - 14.9 % [facility] Hematocrit (Bld) [Volume fraction] 40.6 % 34.9 - 44.3 % [facility] Hemoglobin (Bld) [Mass/Vol] 13.1 g/dL 11.4 - 15.2 g/dL [facility] Interpretation and review of laboratory results Normal [facility] MCH (RBC) [Entitic mass] 30.8 pg 25.9 - 33.9 pg [facility] MCHC (RBC) [Mass/Vol] 32.3 g/dL 31.4 - 35.9 g/dL [facility] MCV (RBC) [Entitic vol] 95.3 fL 79.6 - 97.7 fL [facility] Platelet mean volume (Bld) [Entitic vol] 10.4 fL 8.5 - 12.2 fL [facility] Platelets (Bld) [#/Vol] 259 10*3/uL 150 - 393 K/uL [facility] RBC (Bld) [#/Vol] 4.26 10*6/uL [facility] WBC (Bld) [#/Vol] 10.2 10*3/uL 3.99 - 11.19 K/uL [facility] Hematocrit (Bld) [Volume fraction] 40.6 % Normal 34.9-44.3 [facility] Comment on above: Performed By: #### I ABRIL ANDREA HDLT #### [facility] (DEFAULT) [address] [address] Hemoglobin (Bld) [Mass/Vol] 13.1 g/dL Normal 11.4-15.2 [facility] Comment on above: Performed By: #### I PBABRIL HDLT #### [facility] (DEFAULT) [address] [place] [address] MCV (RBC) [Entitic vol] 95.3 fL Normal 79.6-97.7 [facility] Comment on above: Performed By: #### I PB MGO, HDLT #### [facility] (DEFAULT) [address] [place] [address] Mean Cell Hgb 30.8 pg Normal 25.9-33.9 [facility] Comment on above: Performed By: #### I PB, MGO, HDLT #### [facility] (DEFAULT) [address] [place] [place] [address] Mean Cell Hgb Conc 32.3 g/dL Normal 31.4-35.9 [facility] Comment on above: Performed By: #### I PB, MGO, HDLT #### [facility] (DEFAULT) [address] [place] [address] Platelet mean volume (Bld) [Entitic vol] 10.4 fL Normal 8.5-12.2 [facility] Comment on above: Performed By: #### I PB, MGO, HDLT #### [facility] (DEFAULT) [address] [address] 09272 Platelets (Bld) [#/Vol] 259 10*3/uL Normal 150-393 [facility] Comment on above: Performed By: #### I PB, MGO, HDLT #### [facility] (DEFAULT) [address] [address] 72526 RBC (Bld) [#/Vol] 4.26 10*6/uL Normal 3.91-5.04 [facility] Comment on above: Performed By: #### I PB, MGO, HDLT #### [facility] (DEFAULT) [address] [place] [address] 61615 RBC Distribution 13.4 % Normal 10.8-14.9 [facility] Comment on above: Performed By: #### I PB, MGO, HDLT #### [facility] (DEFAULT) [address] [place] [address] 37134 WBC (Bld) [#/Vol] 10.20 10*3/uL Normal 3.99-11.19 [facility] Comment on above: Performed By: #### I PB, MGO, HDLT #### [facility] (DEFAULT) [address] [place] [address] 95537 CHEM 6 (LYTES, BUN CREA)on 0 Anion gap [Moles/Vol] 15 mmol/L 7 - 17 mmol/L [facility] Chloride [Moles/Vol] 106 mmol/L 98 - 10 8 mmol/L [facility] CO2 [Moles/Vol] 25 mmol/L 21 - 31 mmol/L [facility] Creatinine [Mass/Vol] 0.84 mg/dL 0.50 - 1.20 mg/dL [facility] eGFR, CKD-EPI, Female 74 - PINF [facility] Comment on above: Reported eGFR is bas ed on the CKD-EPI 2020 equation using creatinine, age, and sex. Interpretation and review of laboratory results Abnormal [facility] Potassium [Moles/Vol] 4.5 mmol/L 3.5 - 5.0 mmol/L [facility] Sodium [Moles/Vol] 141 mmol/L 135 - 145 mmol/L [facility] Urea nitrogen [Mass/Vol] 37 mg/dL High 7 - 25 mg/dL [facility] Urea nitrogen/Creatinine [Mass ratio] 44 mg/mg [facility] Anion gap [Moles/Vol] 15 mmol/L Normal 7-17 [facility] Comment on above: Performed By: #### I ZULLY MGO, HDLT #### [facility] (DEFAULT) [address] [place] [address] Chloride [Moles/Vol] 106 mmol/L Normal 98-108 [facility] Comment on above: Performed By: #### I PB MGO, HDLT #### [facility] (DEFAULT) [address] [place] [address] CO2 [Moles/Vol] 25 mmol/L Normal 21-31 [facility] Comment on above: Performed By: #### Helena PB MGO, HDLT #### [facility] (DEFAULT) [address] [place] [address] Creatinine [Mass/Vol] 0.84 mg/dL Normal 0.50-1.20 [facility] Comment on above: Performed By: #### I PB MGO, HDLT #### [facility] (DEFAULT) [address] [address] 30757 GFR/1.73 sq M.predicted among non-blacks MDRD (S/P/Bld) [Vol rate/Area] 72 mL/min/{1.73_m2} Normal >=60 [facility] Comment on above: Result Comment: Repo rted eGFR is based on the CKD-EPI 2020 equation using creatinine, age, and sex. Performed By: #### I PB MGO, HDLT #### [facility] (DEFAULT) [address] [place] [address] 01875 Potassium [Moles/Vol] 4.5 mmol/L Normal 3.5-5.0 [facility] Comment on above: Performed By: #### I PB MGO, HDLT #### [facility] (DEFAULT) [address] [place] [address] 58071 Sodium [Moles/Vol] 141 mmol/L Normal 135-145 [facility] Comment on above: Performed By: #### I PB, MGO, HDLT #### [facility] (DEFAULT) [address] [place] [address] 07409 Urea nitrogen [Mass/Vol] 37 mg/dL High 7-25 [facility] Comment on above: Performed By: #### I PB, MGO, HDLT #### [facility] (DEFAULT) [address] [place] [address] 42009 Urea nitrogen/Creatinine [Mass ratio] 44 mg/mg Normal [facility] Comment on above: Performed By: #### I PB, MGO, HDLT #### [facility] (DEFAULT) [address] [place] [address] 71978 PTTOrdered By: Christina markham on 10-06-2024 aPTT Coag (PPP) [Time] 44.5 s High [facility] Interpretation and review of laboratory results Abnormal [facility] Results inconsistent with previous results [facility] PTTon 10-06-2024 aPTT Coag (Bld) [Time] 44.5 s High 24.0-34.3 [facility] Comment on above: Order Comment: After initiation a PTT should be checked every 6 hours from time of last dose change or, if dose has not changed, 6 hours after last PTT result posted.? The frequent monitoring should occur until PTT in goal range for two consecutive lab draws without dose changes at which time PTTs may be checked no less frequently than every 12 hours.? If dose requires a change, PTT should be monitored at least every 6 hours until titration is no longer indicated, then as directed above.? If PTT above goal range refer to medication administration instructions. Results inconsistent with previous results Performed By: #### P TT #### [facility] (DEFAULT) [address] [address] 96923 aPTT Coag (PPP) [Time] 27.4 s [facility] Interpretation and review of laboratory results Normal [facility] aPTT Coag (Bld) [Time] 27.4 s Normal 24.0-34.3 [facility] Comment on above: Order Comment: Draw prior to initiation of intravenous Heparin. Performed By: #### I PB, MGO, HDLT #### [facility] (DEFAULT) [address] [address] 82210 CBC,PLATELETSon 10-05-2024 Erythrocyte distribution width (RBC) [Ratio] 13.2 % 10.8 - 14.9 % [facility] Hematocrit (Bld) [Volume fraction] 41 % 34.9 - 44.3 % [facility] Hemoglobin (Bld) [Mass/Vol] 13.4 g/dL 11.4 - 15.2 g/dL [facility] Interpretation and review of laboratory results Abnormal [facility] MCH (RBC) [Entitic mass] 30.9 pg 25.9 - 33.9 pg [facility] MCHC (RBC) [Mass/Vol] 32.7 g/dL 31.4 - 35.9 g/dL [facility] MCV (RBC) [Entitic vol] 94.5 fL 79.6 - 97.7 fL [facility] Platelet mean volume (Bld) [Entitic vol] 10.2 fL 8.5 - 12.2 fL [facility] Platelets (Bld) [#/Vol] 255 10*3/uL 150 - 393 K/uL [facility] RBC (Bld) [#/Vol] 4.34 10*6/uL [facility] WBC (Bld) [#/Vol] 12.05 10*3/uL High 3.99 - 11.19 K/uL [facility] Hematocrit (Bld) [Volume fraction] 41.0 % Normal 34.9-44.3 [facility] Comment on above: Performed By: #### I PB, MGO, HDLT #### [facility] (DEFAULT) [address] [address] Hemoglobin (Bld) [Mass/Vol] 13.4 g/dL Normal 11.4-15.2 [facility] Comment on above: Performed By: #### I PB, MGO, HDLT #### [facility] (DEFAULT) [address] [address] 07035 MCV (RBC) [Entitic vol] 94.5 fL Normal 79.6-97.7 [facility] Comment on above: Performed By: #### I PB, MGO, HDLT #### [facility] (DEFAULT) [address] [address] Mean Cell Hgb 30.9 pg Normal 25.9-33.9 [facility] Comment on above: Performed By: #### I PB, MGO, HDLT #### [facility] (DEFAULT) [address] [address] Mean Cell Hgb Conc 32.7 g/dL Normal 31.4-35.9 [facility] Comment on above: Performed By: #### I PB, MGO, HDLT #### [facility] (DEFAULT) [address] [address] 12431 Platelet mean volume (Bld) [Entitic vol] 10.2 fL Normal 8.5-12.2 [facility] Comment on above: Performed By: #### I PB, MGO, HDLT #### [facility] (DEFAULT) [address] [place] [address] 16850 Platelets (Bld) [#/Vol] 255 10*3/uL Normal 150-393 [facility] Comment on above: Performed By: #### I PB, MGO, HDLT #### [facility] (DEFAULT) [address] [place] [address] 23972 RBC (Bld) [#/Vol] 4.34 10*6/uL Normal 3.91-5.04 [facility] Comment on above: Performed By: #### I PB, MGO, HDLT #### [facility] (DEFAULT) [address] [place] [address] 43779 RBC Distribution 13.2 % Normal 10.8-14.9 [facility] Comment on above: Performed By: #### I PB, MGO, HDLT #### [facility] (DEFAULT) [address] [place] [address] 39147 WBC (Bld) [#/Vol] 12.05 10*3/uL High 3.99-11.19 [facility] Comment on above: Performed By: #### I PB, MGO, HDLT #### [facility] (DEFAULT) [address] [place] [address] 37380 CHEM 6 (LYTES, BUN CREA)Orde red By: Caden Oconnor on 10-05-2024 Anion gap [Moles/Vol] 16 mmol/L 7 - 17 mmol/L [facility] Chloride [Moles/Vol] 107 mmol/L 98 - 10 8 mmol/L [facility] CO2 [Moles/Vol] 21 mmol/L 21 - 31 mmol/L [facility] Creatinine [Mass/Vol] 0.94 mg/dL 0.50 - 1.20 mg/dL [facility] eGFR, CKD-EPI, Female 64 - PINF [facility] Comment on above: Reported eGFR is bas ed on the CKD-EPI 2020 equation using creatinine, age, and sex. Interpretation and review of laboratory results Abnormal [facility] Potassium [Moles/Vol] 3.6 mmol/L 3.5 - 5.0 mmol/L [facility] Sodium [Moles/Vol] 140 mmol/L 135 - 145 mmol/L [facility] Urea nitrogen [Mass/Vol] 41 mg/dL High 7 - 25 mg/dL [facility] Urea nitrogen/Creatinine [Mass ratio] 44 mg/mg [facility] CHEM 6 (LYTES, BUN CREA)on 0 10-05-2024 Anion gap [Moles/Vol] 16 mmol/L Normal 7-17 [facility] Comment on above: Performed By: #### L [id number] #### [facility] (DEFAULT) [address] [place] [address] 47622 Chloride [Moles/Vol] 107 mmol/L Normal 98-108 [facility] Comment on above: Performed By: #### L AB980 #### [facility] (DEFAULT) [address] [place] [address] 80348 CO2 [Moles/Vol] 21 mmol/L Normal 21-31 [facility] Comment on above: Performed By: #### L [id number] #### [facility] (DEFAULT) [address] [place] [address] Creatinine [Mass/Vol] 0.94 mg/dL Normal 0.50-1.20 [facility] Comment on above: Performed By: #### L AB980 #### [facility] (DEFAULT) [address] [place] [address] GFR/1.73 sq M.predicted among non-blacks MDRD (S/P/Bld) [Vol rate/Area] 62 mL/min/{1.73_m2} Normal >=60 [facility] Comment on above: Result Comment: Repo rted eGFR is based on the CKD-EPI 2020 equation using creatinine, age, and sex. Performed By: #### L AB980 #### [facility] (DEFAULT) [address] [place] [address] Potassium [Moles/Vol] 3.6 mmol/L Normal 3.5-5.0 [facility] Comment on above: Performed By: #### L AB980 #### [facility] (DEFAULT) [address] [place] [address] 46904 Sodium [Moles/Vol] 140 mmol/L Normal 135-145 [facility] Comment on above: Performed By: #### L [id number] #### [facility] (DEFAULT) [address] [place] [address] 91033 Urea nitrogen [Mass/Vol] 41 mg/dL High 7-25 [facility] Comment on above: Performed By: #### L AB980 #### [facility] (DEFAULT) [address] [place] [address] 89033 Urea nitrogen/Creatinine [Mass ratio] 44 mg/mg Normal [facility] Comment on above: Performed By: #### L [id number] #### [facility] (DEFAULT) [address] [address] 08677 PT,INR,PTTon 10-05-2024 aPTT Coag (PPP) [Time] 28.3 s [facility] INR Coag (Bld) [Relative time] 1.1 {INR} 0.9 - 1.1 [facility] Interpretation and review of laboratory results Abnormal [facility] PT Coag (PPP) [Time] 14.6 s High [facility] aPTT Coag (Bld) [Time] 28.3 s Normal 24.0-34.3 [facility] Comment on above: Performed By: #### I PB, MGO, HDLT #### [facility] (DEFAULT) [address] [place] [address] 21025 INR Coag (PPP) [Relative time] 1.1 {INR} Normal 0.9-1.1 [facility] Comment on above: Performed By: #### I PB, MGO, HDLT #### [facility] (DEFAULT) [address] [place] [address] PT Coag (PPP) [Time] 14.6 s High 11.9-14.2 [facility] Comment on above: Performed By: #### I PB, MGO, HDLT #### [facility] (DEFAULT) [address] [address] 71652 CBC,PLATELETSon 10-04-2024 Erythrocyte distribution width (RBC) [Ratio] 13.1 % 10.8 - 14.9 % [facility] Hematocrit (Bld) [Volume fraction] 40.5 % 34.9 - 44.3 % [facility] Hemoglobin (Bld) [Mass/Vol] 12.9 g/dL 11.4 - 15.2 g/dL [facility] Interpretation and review of laboratory results Normal [facility] MCH (RBC) [Entitic mass] 30.8 pg 25.9 - 33.9 pg [facility] MCHC (RBC) [Mass/Vol] 31.9 g/dL 31.4 - 35.9 g/dL [facility] MCV (RBC) [Entitic vol] 96.7 fL 79.6 - 97.7 fL [facility] Platelet mean volume (Bld) [Entitic vol] 10.4 fL 8.5 - 12.2 fL [facility] Platelets (Bld) [#/Vol] 243 10*3/uL 150 - 393 K/uL [facility] RBC (Bld) [#/Vol] 4.19 10*6/uL [facility] WBC (Bld) [#/Vol] 10.5 10*3/uL 3.99 - 11.19 K/uL [facility] Hematocrit (Bld) [Volume fraction] 40.5 % Normal 34.9-44.3 [facility] Comment on above: Performed By: #### I PB, MGO, HDLT #### [facility] (DEFAULT) [address] [place] [address] 26586 Hemoglobin (Bld) [Mass/Vol] 12.9 g/dL Normal 11.4-15.2 [facility] Comment on above: Performed By: #### I PB, MGO, HDLT #### [facility] (DEFAULT) [address] [place] [address] 49031 MCV (RBC) [Entitic vol] 96.7 fL Normal 79.6-97.7 [facility] Comment on above: Performed By: #### I PB, MGO, HDLT #### [facility] (DEFAULT) [address] [place] [address] 31615 Mean Cell Hgb 30.8 pg Normal 25.9-33.9 [facility] Comment on above: Performed By: #### I PB, MGO, HDLT #### [facility] (DEFAULT) [address] [place] [address] 49357 Mean Cell Hgb Conc 31.9 g/dL Normal 31.4-35.9 [facility] Comment on above: Performed By: #### I PB, MGO, HDLT #### [facility] (DEFAULT) [address] [place] [address] 11649 Platelet mean volume (Bld) [Entitic vol] 10.4 fL Normal 8.5-12.2 [facility] Comment on above: Performed By: #### I PB, MGO, HDLT #### [facility] (DEFAULT) [address] [place] [address] 90688 Platelets (Bld) [#/Vol] 243 10*3/uL Normal 150-393 [facility] Comment on above: Performed By: #### I PB, MGO, HDLT #### [facility] (DEFAULT) [address] [place] [address] 45433 RBC (Bld) [#/Vol] 4.19 10*6/uL Normal 3.91-5.04 [facility] Comment on above: Performed By: #### I PB, MGO, HDLT #### [facility] (DEFAULT) [address] [place] [address] RBC Distribution 13.1 % Normal 10.8-14.9 [facility] Comment on above: Performed By: #### I PB, MGO, HDLT #### [facility] (DEFAULT) [address] [place] [address] 27223 WBC (Bld) [#/Vol] 10.50 10*3/uL Normal 3.99-11.19 [facility] Comment on above: Performed By: #### I PB, MGO, HDLT #### [facility] (DEFAULT) [address] [address] 80118 CHEM 6 (LYTES, BUN CREA)Orde red By: Mikayla Sheridan on 10-04-2024 Anion gap [Moles/Vol] 16 mmol/L 7 - 17 mmol/L [facility] Chloride [Moles/Vol] 106 mmol/L 98 - 10 8 mmol/L [facility] CO2 [Moles/Vol] 22 mmol/L 21 - 31 mmol/L [facility] Creatinine [Mass/Vol] 0.82 mg/dL 0.50 - 1.20 mg/dL [facility] eGFR, CKD-EPI, Female 76 - PINF [facility] Comment on above: Reported eGFR is bas ed on the CKD-EPI 2020 equation using creatinine, age, and sex. Interpretation and review of laboratory results Abnormal [facility] Potassium [Moles/Vol] 5.9 mmol/L High 3.5 - 5.0 mmol/L [facility] Comment on above: Specimen moderately hemolyzed. Potassium results may be falsey elevated by more than 0.8 mmol/L. Consider recollection. Sodium [Moles/Vol] 138 mmol/L 135 - 145 mmol/L [facility] Urea nitrogen [Mass/Vol] 37 mg/dL High 7 - 25 mg/dL [facility] Urea nitrogen/Creatinine [Mass ratio] 45 mg/mg [facility] CHEM 6 (LYTES, BUN CREA)on 0 10-04-2024 Anion gap [Moles/Vol] 16 mmol/L Normal 7-17 [facility] Comment on above: Performed By: #### I PB, MGO, HDLT #### [facility] (DEFAULT) [address] [address] 30359 Chloride [Moles/Vol] 106 mmol/L Normal 98-108 [facility] Comment on above: Performed By: #### I PB, MGO, HDLT #### [facility] (DEFAULT) [address] [place] [address] 76365 CO2 [Moles/Vol] 22 mmol/L Normal 21-31 [facility] Comment on above: Performed By: #### I PB, MGO, HDLT #### [facility] (DEFAULT) [address] [place] [address] 66842 Creatinine [Mass/Vol] 0.82 mg/dL Normal 0.50-1.20 [facility] Comment on above: Performed By: #### I PB, MGO, HDLT #### [facility] (DEFAULT) [address] [address] 69924 GFR/1.73 sq M.predicted among non-blacks MDRD (S/P/Bld) [Vol rate/Area] 74 mL/min/{1.73_m2} Normal >=60 [facility] Comment on above: Result Comment: Repo rted eGFR is based on the CKD-EPI 2020 equation using creatinine, age, and sex. Performed By: #### I PB, MGO, HDLT #### [facility] (DEFAULT) [address] [place] [address] 58247 Potassium [Moles/Vol] 5.9 mmol/L High 3.5-5.0 [facility] Comment on above: Result Comment: Spec imen moderately hemolyzed. Potassium results may be falsey elevated by more than 0.8 mmol/L. Consider recollection. Performed By: #### I PB, MGO, HDLT #### [facility] (DEFAULT) [address] [place] [address] Sodium [Moles/Vol] 138 mmol/L Normal 135-145 [facility] Comment on above: Performed By: #### I PB, MGO, HDLT #### [facility] (DEFAULT) [address] [place] [address] 68476 Urea nitrogen [Mass/Vol] 37 mg/dL High 7-25 [facility] Comment on above: Performed By: #### I PB, MGO, HDLT #### [facility] (DEFAULT) [address] [place] [address] 33421 Urea nitrogen/Creatinine [Mass ratio] 45 mg/mg Normal [facility] Comment on above: Performed By: #### I PB, MGO, HDLT #### [facility] (DEFAULT) [address] [address] 57861 MAGNESIUMon 10-04-2024 Interpretation and review of laboratory results Normal [facility] Magnesium [Mass/Vol] 2.2 mg/dL 1.6 - 2 .6 mg/dL [facility] Magnesium [Mass/Vol] 2.2 mg/dL Normal 1.6-2.6 [facility] Comment on above: Performed By: #### I PB, MGO, HDLT #### [facility] (DEFAULT) [address] [address] 89024 POTASSIUMon 10-04-2024 Interpretation and review of laboratory results Normal [facility] Potassium [Moles/Vol] 4.6 mmol/L 3.5 - 5.0 mmol/L [facility] Potassium [Moles/Vol] 4.6 mmol/L Normal 3.5-5.0 [facility] Comment on above: Performed By: #### I PB, MGO, HDLT #### [facility] (DEFAULT) [address] [place] [address] 14967 URINE CULTUREOrdered By: Sisi Lara on 10-04-2024 Bacteria identified Cx Nom (Unsp spec) Growth [facility] Bacteria identified Cx Nom (Unsp spec) KLEBSIELLA VARIICOLA Abnormal [facility] Comment on above: Susceptibilities set up on 10/03/24 Bacteria identified Cx Nom (Unsp spec) Clinically insignificant [facility] Interpretation and review of laboratory results Abnormal [facility] EXTRA MICROon 10-02-2024 [facility] URINALYSIS REFLEX TO CULTURE PERFORMABLEOrdered By: Jessica Castañeda on 10-02-2024 Appearance (U) Clear Clear [facility] Bacteria LM Ql (Urine sed) PRESENT Abnormal ABSENT [facility] Color (U) Yellow Yellow [facility] Epithelial cells.squamous LM Ql (Urine sed) 0-2/hpf 0-2/hpf, 3-5/hpf = 1+ [facility] Glucose Test strip (U) [Mass/Vol] >=1000 mg/dL Abnormal Negative [facility] Interpretation and review of laboratory results Abnormal [facility] Ketones (U) [Mass/Vol] Negative Negative [facility] Leukocyte esterase Test strip Ql (U) Trace Abnormal Negative [facility] Nitrite Ql (U) Positive Abnormal Negative [facility] pH (U) 5.0 [pH] 5.0 - 7.0 [facility] Protein (U) [Mass/Vol] Negative Negative [facility] RBC (U) [#/Vol] Negative Negative [facility] RBC LM.HPF (Urine sed) [#/Area] 0-2 [facility] Specific gravity (U) [Rel density] 1.025 1.001 - 1.035 [facility] Urobilinogen (U) [Mass/Vol] 0.2 E.U./dL 0.2 E.U/dL, 1.0 E.U/dL [facility] WBC LM.HPF (Urine sed) [#/Area] 11 - 20 Abnormal [facility] URINALYSIS REFLEX TO CULTURE PERFORMABLEon 10-02-2024 Appearance (U) Clear Normal Clear [facility] Comment on above: Order Comment: For i ndwelling catheters, specimen collection is acceptable on catheter day 1 and 2 only. ? Performed By: #### U [id number] #### [facility] (DEFAULT) [address] [address] Bacteria PRESENT Abnormal ABSENT [facility] Comment on above: Order Comment: For i ndwelling catheters, specimen collection is acceptable on catheter day 1 and 2 only. ? Performed By: #### U [id number] #### [facility] (DEFAULT) [address] [address] Blood Urine Negative Normal Negative [facility] Comment on above: Order Comment: For i ndwelling catheters, specimen collection is acceptable on catheter day 1 and 2 only. ? Performed By: #### U [id number] #### [facility] (DEFAULT) [address] [address] Color (U) Yellow Normal Yellow [facility] Comment on above: Order Comment: For i ndwelling catheters, specimen collection is acceptable on catheter day 1 and 2 only. ? Performed By: #### U [id number] #### [facility] (DEFAULT) [address] [place] [address] Glucose Ql (U) >=1000 mg/dL Abnormal Negative [facility] Comment on above: Order Comment: For i ndwelling catheters, specimen collection is acceptable on catheter day 1 and 2 only. ? Performed By: #### U [id number] #### [facility] (DEFAULT) [address] [address] Ketones Ql (U) Negative Normal Negative [facility] Comment on above: Order Comment: For i ndwelling catheters, specimen collection is acceptable on catheter day 1 and 2 only. ? Performed By: #### U [id number] #### [facility] (DEFAULT) [address] [address] Leukocyte esterase Test strip Ql (U) Trace Abnormal Negative [facility] Comment on above: Order Comment: For i ndwelling catheters, specimen collection is acceptable on catheter day 1 and 2 only. ? Performed By: #### U [id number] #### [facility] (DEFAULT) [address] [address] Nitrites Urine Positive Abnormal Negative [facility] Comment on above: Order Comment: For i ndwelling catheters, specimen collection is acceptable on catheter day 1 and 2 only. ? Performed By: #### U [id number] #### [facility] (DEFAULT) [address] [address] pH (U) 5.0 [pH] Normal 5.0-7.0 [facility] Comment on above: Order Comment: For i ndwelling catheters, specimen collection is acceptable on catheter day 1 and 2 only. ? Performed By: #### U [id number] #### [facility] (DEFAULT) [address] [place] [address] Protein Urine Negative Normal Negative [facility] Comment on above: Order Comment: For i ndwelling catheters, specimen collection is acceptable on catheter day 1 and 2 only. ? Performed By: #### U [id number] #### [facility] (DEFAULT) [address] [address] RBC Urine 0-2 Normal 0-2 [facility] Comment on above: Order Comment: For i ndwelling catheters, specimen collection is acceptable on catheter day 1 and 2 only. ? Performed By: #### U [id number] #### [facility] (DEFAULT) [address] [place] [address] Specific [place] Urine 1.025 Normal 1.001 -1.03 5 [facility] Comment on above: Order Comment: For i ndwelling catheters, specimen collection is acceptable on catheter day 1 and 2 only. ? Performed By: #### U [id number] #### [facility] (DEFAULT) [address] [address] Squamous/Epithelial Cells, Urine 0-2/hpf Normal 0-2/hpf, 3-5/hpf = 1+ [facility] Comment on above: Order Comment: For i ndwelling catheters, specimen collection is acceptable on catheter day 1 and 2 only. ? Performed By: #### U [id number] #### [facility] (DEFAULT) [address] [address] Urobilinogen Urine 0.2 E.U./dL Normal 0.2 E.U/dL, 1.0 E.U/dL [facility] Comment on above: Order Comment: For i ndwelling catheters, specimen collection is acceptable on catheter day 1 and 2 only. ? Performed By: #### U [id number] #### [facility] (DEFAULT) [address] [address] WBC Urine 11 - 20 Abnormal 0 - 5 [facility] Comment on above: Order Comment: For i ndwelling catheters, specimen collection is acceptable on catheter day 1 and 2 only. ? Performed By: #### U [id number] #### [facility] (DEFAULT) [address] [address] URINE CULTUREon 10-02-2024 Amikacin [Susceptibility] 2 ug/mL Invalid Interpretation Code [facility] Comment on above: Order Comment: For i ndwelling catheters, specimen collection is acceptable on catheter day 1 and 2 only. Rao top vacutainer. Urine must be to the fill line to process (4mls). If minimum volume, send urine in a yellow top vacutainer tube. For indwelling catheters, specimen collection is acceptable on catheter day 1 and 2 only. ? Performed By: #### U R #### [facility] (DEFAULT) [address] [address] Ampicillin [Susceptibility] 16 ug/mL Resistant [facility] Comment on above: Order Comment: For i ndwelling catheters, specimen collection is acceptable on catheter day 1 and 2 only. Rao top vacutainer. Urine must be to the fill line to process (4mls). If minimum volume, send urine in a yellow top vacutainer tube. For indwelling catheters, specimen collection is acceptable on catheter day 1 and 2 only. ? Performed By: #### U R #### [facility] (DEFAULT) [address] [address] Ampicillin+Sulbactam [Susceptibility] <=2 Invalid Interpretation Code [facility] Comment on above: Order Comment: For i ndwelling catheters, specimen collection is acceptable on catheter day 1 and 2 only. Rao top vacutainer. Urine must be to the fill line to process (4mls). If minimum volume, send urine in a yellow top vacutainer tube. For indwelling catheters, specimen collection is acceptable on catheter day 1 and 2 only. ? Performed By: #### U R #### [facility] (DEFAULT) [address] [address] ceFAZolin [Susceptibility] 2 ug/mL Invalid Interpretation Code [facility] Comment on above: Order Comment: For i ndwelling catheters, specimen collection is acceptable on catheter day 1 and 2 only. Rao top vacutainer. Urine must be to the fill line to process (4mls). If minimum volume, send urine in a yellow top vacutainer tube. For indwelling catheters, specimen collection is acceptable on catheter day 1 and 2 only. ? Performed By: #### U R #### [facility] (DEFAULT) [address] [address] Cefepime [Susceptibility] <= Invalid Interpretation Code [facility] Comment on above: Order Comment: For i ndwelling catheters, specimen collection is acceptable on catheter day 1 and 2 only. Rao top vacutainer. Urine must be to the fill line to process (4mls). If minimum volume, send urine in a yellow top vacutainer tube. For indwelling catheters, specimen collection is acceptable on catheter day 1 and 2 only. ? Performed By: #### U R #### [facility] (DEFAULT) [address] [address] cefTRIAXone [Susceptibility] <= Invalid Interpretation Code [facility] Comment on above: Order Comment: For i ndwelling catheters, specimen collection is acceptable on catheter day 1 and 2 only. Rao top vacutainer. Urine must be to the fill line to process (4mls). If minimum volume, send urine in a yellow top vacutainer tube. For indwelling catheters, specimen collection is acceptable on catheter day 1 and 2 only. ? Performed By: #### U R #### [facility] (DEFAULT) [address] [address] Ciprofloxacin [Susceptibility] <= Invalid Interpretation Code [facility] Comment on above: Order Comment: For i ndwelling catheters, specimen collection is acceptable on catheter day 1 and 2 only. Rao top vacutainer. Urine must be to the fill line to process (4mls). If minimum volume, send urine in a yellow top vacutainer tube. For indwelling catheters, specimen collection is acceptable on catheter day 1 and 2 only. ? Performed By: #### U R #### [facility] (DEFAULT) [address] [address] Gentamicin [Susceptibility] <= Invalid Interpretation Code [facility] Comment on above: Order Comment: For i ndwelling catheters, specimen collection is acceptable on catheter day 1 and 2 only. Rao top vacutainer. Urine must be to the fill line to process (4mls). If minimum volume, send urine in a yellow top vacutainer tube. For indwelling catheters, specimen collection is acceptable on catheter day 1 and 2 only. ? Performed By: #### U R #### [facility] (DEFAULT) [address] [address] levoFLOXacin [Susceptibility] <= Invalid Interpretation Code [facility] Comment on above: Order Comment: For i ndwelling catheters, specimen collection is acceptable on catheter day 1 and 2 only. Rao top vacutainer. Urine must be to the fill line to process (4mls). If minimum volume, send urine in a yellow top vacutainer tube. For indwelling catheters, specimen collection is acceptable on catheter day 1 and 2 only. ? Performed By: #### U R #### [facility] (DEFAULT) [address] [address] Nitrofurantoin [Susceptibility] <= Invalid Interpretation Code [facility] Comment on above: Order Comment: For i ndwelling catheters, specimen collection is acceptable on catheter day 1 and 2 only. Rao top vacutainer. Urine must be to the fill line to process (4mls). If minimum volume, send urine in a yellow top vacutainer tube. For indwelling catheters, specimen collection is acceptable on catheter day 1 and 2 only. ? Performed By: #### U R #### [facility] (DEFAULT) [address] [address] Trimethoprim+Sulfameth oxazole [Susceptibility] <= Invalid Interpretation Code [facility] Comment on above: Order Comment: For i ndwelling catheters, specimen collection is acceptable on catheter day 1 and 2 only. Rao top vacutainer. Urine must be to the fill line to process (4mls). If minimum volume, send urine in a yellow top vacutainer tube. For indwelling catheters, specimen collection is acceptable on catheter day 1 and 2 only. ? Performed By: #### U R #### [facility] (DEFAULT) [address] [address] CALCIUMon 10-01-2024 Calcium [Mass/Vol] 9.5 mg/dL 8.6 - 10. 5 mg/dL [facility] Calcium [Mass/Vol] 9.5 mg/dL Normal 8.6-10.5 [facility] Comment on above: Performed By: #### U R #### [facility] (DEFAULT) [address] [address] CBC AND ELECTRONIC DIFFon Basophils (Bld) [#/Vol] K/uL 0.00 - 0.15 K/uL [facility] Basophils/100 WBC (Bld) 0.2 % [facility] Differential cell count method Nom (Bld) Electronic Differential [facility] Eosinophils (Bld) [#/Vol] 0.06 10*3/uL 0.00 - 0.42 K/uL [facility] Eosinophils/100 WBC (Bld) 0.6 % [facility] Erythrocyte distribution width (RBC) [Ratio] 12.9 % 10.8 - 14.9 % [facility] Hematocrit (Bld) [Volume fraction] 43.2 % 34.9 - 44.3 % [facility] Hemoglobin (Bld) [Mass/Vol] 13.8 g/dL 11.4 - 15.2 g/dL [facility] Immature granulocytes (Bld) [#/Vol] K/uL NINF - 0.08 K/uL [facility] Immature granulocytes/100 WBC (Bld) 0.2 % [facility] Interpretation and review of laboratory results Abnormal [facility] Lymphocytes (Bld) [#/Vol] 3.3 10*3/uL 1.16 - 3.51 K/uL [facility] Lymphocytes/100 WBC (Bld) 30.8 % [facility] MCH (RBC) [Entitic mass] 30.5 pg 25.9 - 33.9 pg [facility] MCHC (RBC) [Mass/Vol] 31.9 g/dL 31.4 - 35.9 g/dL [facility] MCV (RBC) [Entitic vol] 95.4 fL 79.6 - 97.7 fL [facility] Monocytes (Bld) [#/Vol] 0.89 10*3/uL High 0.22 - 0.87 K/uL [facility] Monocytes/100 WBC (Bld) 8.3 % [facility] Neutrophils (Bld) [#/Vol] 6.41 10*3/uL 1.64 - 7.28 K/uL [facility] Nucleated RBC/100 WBC (Bld) [Ratio] 0 % [facility] Platelet mean volume (Bld) [Entitic vol] 10.1 fL 8.5 - 12.2 fL [facility] Platelets (Bld) [#/Vol] 304 10*3/uL 150 - 393 K/uL [facility] RBC (Bld) [#/Vol] 4.53 10*6/uL [facility] Segmented neutrophils/100 WBC (Bld) 59.9 % [facility] WBC (Bld) [#/Vol] 10.7 10*3/uL 3.99 - 11.19 K/uL [facility] Abs Baso Auto < Normal 0.00-0.15 [facility] Comment on above: Performed By: #### I PB, MGO, HDLT #### [facility] (DEFAULT) [address] [address] Basophils/100 WBC (Bld) 0.2 % Normal [facility] Comment on above: Performed By: #### I PB, MGO, HDLT #### [facility] (DEFAULT) [address] [address] DIFF STATUS Electronic Differential Normal [facility] Comment on above: Performed By: #### I PB, MGO, HDLT #### [facility] (DEFAULT) [address] [address] Eosinophils (Bld) [#/Vol] 0.06 10*3/uL Normal 0.00-0.42 [facility] Comment on above: Performed By: #### I PB, MGO, HDLT #### [facility] (DEFAULT) [address] [address] Eosinophils/100 WBC (Bld) 0.6 % Normal [facility] Comment on above: Performed By: #### I PB, MGO, HDLT #### [facility] (DEFAULT) [address] [address] Hematocrit (Bld) [Volume fraction] 43.2 % Normal 34.9-44.3 [facility] Comment on above: Performed By: #### I PB, MGO, HDLT #### [facility] (DEFAULT) [address] [address] Hemoglobin (Bld) [Mass/Vol] 13.8 g/dL Normal 11.4-15.2 [facility] Comment on above: Performed By: #### I PB, MGO, HDLT #### [facility] (DEFAULT) [address] [address] Immature Grans % 0.2 % Normal [facility] Comment on above: Performed By: #### I PB, MGO, HDLT #### [facility] (DEFAULT) [address] [address] Immature Grans Absolute < Normal <=0.08 [facility] Comment on above: Performed By: #### I PB, MGO, HDLT #### [facility] (DEFAULT) [address] [address] Lymphocytes (Bld) [#/Vol] 3.30 10*3/uL Normal 1.16-3.51 [facility] Comment on above: Performed By: #### I PB, MGO, HDLT #### [facility] (DEFAULT) [address] [address] Lymphocytes/100 WBC (Bld) 30.8 % Normal [facility] Comment on above: Performed By: #### I PB, MGO, HDLT #### [facility] (DEFAULT) [address] [address] MCV (RBC) [Entitic vol] 95.4 fL Normal 79.6-97.7 [facility] Comment on above: Performed By: #### I PB, MGO, HDLT #### [facility] (DEFAULT) [address] [address] Mean Cell Hgb 30.5 pg Normal 25.9-33.9 [facility] Comment on above: Performed By: #### I PB, MGO, HDLT #### [facility] (DEFAULT) [address] [place] [address] Mean Cell Hgb Conc 31.9 g/dL Normal 31.4-35.9 [facility] Comment on above: Performed By: #### I PB, MGO, HDLT #### [facility] (DEFAULT) [address] [place] [address] Monocytes (Bld) [#/Vol] 0.89 10*3/uL High 0.22-0.87 [facility] Comment on above: Performed By: #### I PB, MGO, HDLT #### [facility] (DEFAULT) [address] [address] Monocytes/100 WBC (Bld) 8.3 % Normal [facility] Comment on above: Performed By: #### I PB, MGO, HDLT #### [facility] (DEFAULT) [address] [address] Nucleated RBC 0.0 /100 WBC Normal <=0.2 [facility] Comment on above: Performed By: #### I PB, MGO, HDLT #### [facility] (DEFAULT) [address] [address] Platelet mean volume (Bld) [Entitic vol] 10.1 fL Normal 8.5-12.2 [facility] Comment on above: Performed By: #### I PB, MGO, HDLT #### [facility] (DEFAULT) [address] [place] [address] Platelets (Bld) [#/Vol] 304 10*3/uL Normal 150-393 [facility] Comment on above: Performed By: #### I PB, MGO, HDLT #### [facility] (DEFAULT) [address] [place] [address] RBC (Bld) [#/Vol] 4.53 10*6/uL Normal 3.91-5.04 [facility] Comment on above: Performed By: #### I PB, MGO, HDLT #### [facility] (DEFAULT) [address] [address] RBC Distribution 12.9 % Normal 10.8-14.9 [facility] Comment on above: Performed By: #### I PB, MGO, HDLT #### [facility] (DEFAULT) [address] [place] [address] Segs + Bands Auto 59.9 % Normal [facility] Comment on above: Performed By: #### I PB, MGO, HDLT #### [facility] (DEFAULT) [address] [place] [address] Segs + Bands,Absolute Auto 6.41 K/uL Normal 1.64-7.28 [facility] Comment on above: Performed By: #### I PB, MGO, HDLT #### [facility] (DEFAULT) [address] [place] [address] WBC (Bld) [#/Vol] 10.70 10*3/uL Normal 3.99-11.19 [facility] Comment on above: Performed By: #### I PB, MGO, HDLT #### [facility] (DEFAULT) [address] [address] CHEM 7 (LYTES,BUN,CREA,GLUC) on 10-01-2024 Anion gap [Moles/Vol] 18 mmol/L High 7 - 17 mmol/L [facility] Chloride [Moles/Vol] 103 mmol/L 98 - 10 8 mmol/L [facility] CO2 [Moles/Vol] 24 mmol/L 21 - 31 mmol/L [facility] Creatinine [Mass/Vol] 0.89 mg/dL 0.50 - 1.20 mg/dL [facility] eGFR, CKD-EPI, Female 69 - PINF [facility] Comment on above: Reported eGFR is bas ed on the CKD-EPI 2020 equation using creatinine, age, and sex. Glucose [Mass/Vol] 99 mg/dL 70 - 179 mg/dL [facility] Osmolality Calc [Osmolality] 302 [facility] Potassium [Moles/Vol] 4.8 mmol/L 3.5 - 5.0 mmol/L [facility] Comment on above: Specimen slightly he molyzed. Potassium results may be falsey elevated by more than 0.5 mmol/L. Consider recollection. Sodium [Moles/Vol] 140 mmol/L 135 - 145 mmol/L [facility] Urea nitrogen [Mass/Vol] 34 mg/dL High 7 - 25 mg/dL [facility] Urea nitrogen/Creatinine [Mass ratio] 38 mg/mg [facility] Anion gap [Moles/Vol] 18 mmol/L High 7-17 [facility] Comment on above: Performed By: #### U R #### [facility] (DEFAULT) [address] [address] Chloride [Moles/Vol] 103 mmol/L Normal 98-108 [facility] Comment on above: Performed By: #### U R #### [facility] (DEFAULT) [address] [address] CO2 [Moles/Vol] 24 mmol/L Normal 21-31 [facility] Comment on above: Performed By: #### U R #### [facility] (DEFAULT) [address] [address] Creatinine [Mass/Vol] 0.89 mg/dL Normal 0.50-1.20 [facility] Comment on above: Performed By: #### U R #### [facility] (DEFAULT) [address] [address] GFR/1.73 sq M.predicted among non-blacks MDRD (S/P/Bld) [Vol rate/Area] 67 mL/min/{1.73_m2} Normal >=60 [facility] Comment on above: Result Comment: Repo rted eGFR is based on the CKD-EPI 2020 equation using creatinine, age, and sex. Performed By: #### U R #### [facility] (DEFAULT) [address] [address] Glucose [Mass/Vol] 99 mg/dL Normal Nonfastin g : 70-179 mg/dL; Fastin-99 [facility] Comment on above: Performed By: #### U R #### [facility] (DEFAULT) [address] [address] Osmolality [Osmolality] 302 mosm/kg Normal 278-305 [facility] Comment on above: Performed By: #### U R #### [facility] (DEFAULT) [address] [address] Potassium [Moles/Vol] 4.8 mmol/L Normal 3.5-5.0 [facility] Comment on above: Result Comment: Spec imen slightly hemolyzed. Potassium results may be falsey elevated by more than 0.5 mmol/L. Consider recollection. Performed By: #### U R #### [facility] (DEFAULT) [address] [address] Sodium [Moles/Vol] 140 mmol/L Normal 135-145 [facility] Comment on above: Performed By: #### U R #### [facility] (DEFAULT) [address] [place] [address] Urea nitrogen [Mass/Vol] 34 mg/dL High 7-25 [facility] Comment on above: Performed By: #### U R #### [facility] (DEFAULT) [address] [address] Urea nitrogen/Creatinine [Mass ratio] 38 mg/mg Normal [facility] Comment on above: Performed By: #### U R #### [facility] (DEFAULT) [address] [place] [address] HEPATIC FUNCTION PANELon Albumin [Mass/Vol] 4.4 g/dL 3.5 - 5.0 g/dL [facility] ALP [Catalytic activity/Vol] 66 U/L 32 - 126 U/L [facility] ALT [Catalytic activity/Vol] 75 U/L High 9 - 48 U/L [facility] AST [Catalytic activity/Vol] 45 U/L High 10 - 39 U/L [facility] Comment on above: Specimen slightly he molyzed. AST results may be falsely elevated. Interpret within the clinical context. Bilirubin [Mass/Vol] 0.4 mg/dL [facility] 1.5 mg/dL [facility] Bilirubin.direct [Mass/Vol] mg/dL [facility] - 0.[facility] mg/dL [facility] Comment on above: Specimen hemolyzed. Direct bilirubin results may be falsely decreased. Interpret within the clinical context. Protein [Mass/Vol] 7.2 g/dL 6.4 - 8.3 g/dL [facility] Albumin [Mass/Vol] 4.4 g/dL Normal 3.5-5.0 [facility] Comment on above: Performed By: #### U R #### [facility] [facility] (DEFAULT) [address] [address] ALP [Catalytic activity/Vol] 66 U/L Normal 32-126 [facility] Comment on above: Performed By: #### U R #### [facility] (DEFAULT) [address] [address] ALT [Catalytic activity/Vol] 75 U/L High 9-48 [facility] Comment on above: Performed By: #### U R #### [facility] (DEFAULT) [address] [address] AST [Catalytic activity/Vol] 45 U/L High 10-39 [facility] Comment on above: Result Comment: Spec imen slightly hemolyzed. AST results may be falsely elevated. Interpret within the clinical context. Performed By: #### U R #### [facility] (DEFAULT) [address] [address] Bilirubin [Mass/Vol] 0.4 mg/dL Normal <1.5 [facility] Comment on above: Performed By: #### U R #### [facility] (DEFAULT) [address] [address] Bilirubin Direct < Normal <0.3 [facility] Comment on above: Result Comment: Spec imen hemolyzed. Direct bilirubin results may be falsely decreased. Interpret within the clinical context. Performed By: #### U R #### [facility] (DEFAULT) [address] [place] [address] Protein [Mass/Vol] 7.2 g/dL Normal 6.4-8.3 [facility] Comment on above: Performed By: #### U R #### [facility] (DEFAULT) [address] [place] [address] MAGNESIUMon 10-01-2024 Magnesium [Mass/Vol] 2.2 mg/dL 1.6 - 2 .6 mg/dL [facility] Magnesium [Mass/Vol] 2.2 mg/dL Normal 1.6-2.6 [facility] Comment on above: Performed By: #### U R #### [facility] (DEFAULT) [address] [place] [address] No Panel Informationon 10-01 Interpretation and review of laboratory results Abnormal [facility] Interpretation and review of laboratory results Normal [facility] PHOSPHATE, INORGANICon 10-01 Phosphate [Mass/Vol] 4.1 mg/dL 2.2 - 4 .6 mg/dL [facility] Phosphorous 4.1 mg/dL Normal 2.2-4.6 [facility] Comment on above: Performed By: #### U R #### [facility] (DEFAULT) [address] [place] [address] PT,INR,PTTon 10-01-2024 aPTT Coag (PPP) [Time] 27.5 s [facility] INR Coag (Bld) [Relative time] 1.1 {INR} 0.9 - 1.1 [facility] Interpretation and review of laboratory results Normal [facility] PT Coag (PPP) [Time] 13.9 s [facility] aPTT Coag (Bld) [Time] 27.5 s Normal 24.0-34.3 [facility] Comment on above: Performed By: #### U R #### [facility] (DEFAULT) [address] [place] [address] INR Coag (PPP) [Relative time] 1.1 {INR} Normal 0.9-1.1 [facility] Comment on above: Performed By: #### U R #### [facility] (DEFAULT) [address] [place] [address] PT Coag (PPP) [Time] 13.9 s Normal 11.9-14.2 [facility] Comment on above: Performed By: #### U R #### [facility] (DEFAULT) [address] [place] [address] Procedure Reporton Procedure Report [facility] Medical Records Department [address] [facility] [place] [address] Procedure Report 09/30/24 1252 MR#: [id number] Acct: [id number] Name: ELIZABETH PERSAUD Rep #: [id number] : 1945 79 From: Maxim Ibarra MD PCP: Dr. Minerva Shaver MD Status:REG [facility] Location: [facility] Non-invasive Procedural Procedure Information Date of Procedure: 09/30/24 Pre-Procedure Diagnosis: Afib Post-Procedure Diagnosis: Afib Procedure Performed:: DC cardioversion rehabilitation caseworker: No Procedure Time Out: 12:40 Procedure Start Time: 12:46 Procedure Stop Time: 12:50 Special Medications: Intravenous propofol 40 mg Description of procedure: Patient was brought to cardiac catheterization lab in the postabsorptive nonsedated state. Informed consent was obtained. Anterior-posterior pads were placed. The patient was appropriately counseled. The patient was administered 40 mg of intravenous propofol. 200 J of synchronized DC biphasic cardioversion energy were applied with prompt reversal to sinus rhythm. Patient tolerated the procedure well. Procedure findings: Successful DC cardioversion from atrial fibrillation to sinus rhythm. Follow-up as per office protocol 09/30/24 1257 Cosigner Signature (if applicable): CC: Dr. Minerva Shaver MD; Dr. Maxim Ibarra MD Signed Normal [facility] 12 Lead EKG performed by [facility] on 09-29-2024 12 Lead EKG performed by [facility] [address] [place] [address] 12 Lead EKG performed by [facility] 09/29/2449 MR#: [id number] Acct: [id number] Name: ELIZABETH PERSAUD Rep #: [id number] : 1945 79 From: Nagi Freeman FORMULATOR FORMULATOR-C Attending Dr: Nagi Freeman, FORMULATOR-C Status: DEP AMB Ordering Dr: Nagi Freeman FORMULATOR FORMULATOR-C Date: 09/29/24 Location: [facility] Sex: F C Admitted: BMS/12 Lead EKG performed by [facility] ECG Report Interpretation atrial fibrillation - occasional ectopic ventricular beat -RSR(V1) -nondiagnostic. -Left axis. -Diffuse ST depression -Nondiagnostic -possible digitalis effect, -consider subendocardial injury/ischemia. ABNORMAL Electronically signed on 09/29/2024 at 16:04 by Maxim Ibarrawood Software Version [id number] 09/29/24 1608 Date Nagi Freeman NP FORMULATOR-C CC: Dr. Minerva Shaver MD Date Dictated: 09/29/2449 Date Transcribed: 09/29/24648 [employer] Certified Network Associate: LENARD Signed Normal [facility] Anion gap in Serum or Plasma Ordered By: Maxim Ibarra on 09-29-2024 Anion gap [Moles/Vol] 13 mmol/L 09-23 [facility] BUN/creatinine ratioOrdered By: Maxim Ibarra on 09-29-2024 Urea nitrogen/Creatinine [Mass ratio] 35.1 mg/mg High 02-[address] [facility] Basic Metabolic Profile (BMP )on 09-29-2024 BUN/CRE 35.1 RATIO High 02-[address] [facility] Comment on above: Order Comment: for D CCV tomorrow Performed By: #### L 500.2500 #### [facility] Laboratory [address] [place], [address] Calcium [Mass/Vol] 9.8 mg/dL Normal 7.6-11.0 [facility] Comment on above: Order Comment: for D CCV tomorrow Performed By: #### L 500.2500 #### [facility] Laboratory [address] [place], [address] Chloride [Moles/Vol] 102 mmol/L Normal 98-108 [facility] Comment on above: Order Comment: for D CCV tomorrow Performed By: #### L 500.2500 #### [facility] [address] [place], [address] CO2 [Moles/Vol] 24.1 mmol/L Normal 21.0-32.[address] [facility] Comment on above: Order Comment: for D CCV tomorrow Performed By: #### L 500.2500 #### [facility] Laboratory [address] [place], [address] Creatinine [Mass/Vol] 0.96 mg/dL Normal 0.70-1.20 [facility] Comment on above: Order Comment: for D CCV tomorrow Performed By: #### L 500.2500 #### [facility] [address] [place], [address] ECRCL 39.42 ml/min Low 50-[address] [facility] Comment on above: Order Comment: for D CCV tomorrow Performed By: #### L 500.2500 #### [facility] [address] [place], [address] GAP 13 Normal 5-[address] [facility] Comment on above: Order Comment: for D CCV tomorrow Performed By: #### L 500.2500 #### [facility] [address] [place], [address] GFR/1.73 sq M.predicted among non-blacks MDRD (S/P/Bld) [Vol rate/Area] 61 mL/min/{1.73_m2} Normal >[address] [facility] Comment on above: Order Comment: for D CCV tomorrow Result Comment: mL/m in/1.73m2 CKD-EPI Creatinine Equation (2020) Performed By: #### L 500.2500 #### [facility] [address] [place], [address] Glucose [Mass/Vol] 100 mg/dL High 70-99 [facility] Comment on above: Order Comment: for D CCV tomorrow Performed By: #### L 500.2500 #### [facility] [address] [place], [address] Potassium [Moles/Vol] 4.2 mmol/L Normal 3.3-5.1 [facility] Comment on above: Order Comment: for D CCV tomorrow Result Comment: Hemo lysis present, Results??could be affected. ?? Performed By: #### L 500.2500 #### [facility] [address] [place], [address] Sodium [Moles/Vol] 140 mmol/L Normal 133-145 [facility] Comment on above: Order Comment: for D CCV tomorrow Performed By: #### L 500.2500 #### [facility] [address] [place], [address] Urea nitrogen [Mass/Vol] 34 mg/dL High 4-[address] [facility] Comment on above: Order Comment: for D CCV tomorrow Performed By: #### L 500.2500 #### [facility] [address] [place], [address] Carbon dioxide, total [Moles /volume] in Central venous bloodOrdered By: [place] Fred on 09-29-2024 CO2 [Moles/Vol] 24.1 mmol/L 21.0-32.[address] [facility] Chloride assayOrdered By: Cy ril Fred on 09-29-2024 Chloride [Moles/Vol] 102 mmol/L 98-108 [facility] Glomerular filtration rate ( GFR) estimation/1.73 sq m using serum, plasma, or whole bOrdered By: Maxim Ibarra on 09-29-2024 GFR/1.73 sq M.predicted among non-blacks MDRD (S/P/Bld) [Vol rate/Area] 61 mL/min/{1.73_m2} >[address] [facility] Comment on above: mL/min/1.73m2 CKD-EP I Creatinine Equation (2020) Potassium measurement (mass/ volume)Ordered By: Maxim Ibarra on 09-29-2024 Potassium (Unsp spec) [Mass/Vol] 4.2 mmol/L 3.3-5.[address] [facility] Comment on above: Hemolysis present, R esults could be affected. Serum creatinine measurement (mass/volume)Ordered By: Maxim Ibarra on 09-29-2024 Creatinine [Mass/Vol] 0.96 mg/dL 0.70-1.20 [facility] Serum glucose measurement (m ass/volume)Ordered By: Maxim Ibarra on 09-29-2024 Glucose [Mass/Vol] 100 mg/dL High 70-99 [facility] Serum or plasma calcium michelle urement (mass/volume)Ordered By: Maxim Ibarra on 09-29-2024 Calcium [Mass/Vol] 9.8 mg/dL 7.6-11.0 [facility] Serum or plasma urea nitroge n measurement (mass/volume)Ordered By: Maxim Ibarra on 09-29-2024 Urea nitrogen [Mass/Vol] 34 mg/dL High 4-[address] [facility] Sodium levelOrdered By: Whitney Ibarra on 09-29-2024 Sodium [Moles/Vol] 140 mmol/L 133-145 [facility] Spine Lumbar (Routine)on Spine Lumbar (Routine) [facility] Imaging Services [address] [place] [address] Spine Lumbar (Routine) MR#: [id number] Acct: [id number] Name: ELIZABETH PERSAUD Rep #: [id number] : 1945 F 79 From: David Hitchcock MD PCP: Dr. Minerva Shaver MD Status: DEP CLI Study: Spine Lumbar (Routine) Date of Exam: 09/25/24 Exam# [id number] Ordering Dr: Ada Jaeger PROCEDURE: SPINE LUMBAR (ROUTINE) 09/25/2024 REASON FOR EXAM: PAIN TECHNIQUE: Multiplanar and multisequence images were obtained without IV contrast administration. COMPARISON: Lumbar spine radiographs 08/17/2024 FINDINGS: Vertebral body heights are maintained. There is leftward curvature of the lumbar spine. Multilevel disc height and signal loss. Slightly heterogeneous appearance of the marrow signal, without focal abnormality. There is T1 and T2 hyperintensity at the right aspect of the endplates at L3-4 (Modic type 2 changes). Cord signal is unremarkable. Conus terminates at mid L1. Mild atrophy of the paraspinal musculature. Subcentimeter hyperintensity in the right hepatic lobe on the localizer sequence, which corresponds with a T1 hypointensity on the coronal sequence, likely a simple cyst. Level by level description: L1-2: Mild disc bulging, predominantly at the left lateral aspect where there is also osteophyte formation and likely contact of the exiting nerve root.. Moderate facet arthropathy. No significant neural foraminal or spinal canal narrowing. L2-3: Mild disc bulging. Moderate facet arthropathy. No significant neural foraminal or spinal canal narrowing. L3-4: Ckmg-gm-oddgwwav disc bulging. Moderate facet arthropathy. Ligamentum flavum hypertrophy. There is mild right neural foraminal narrowing and mild spinal canal narrowing, with spinal canal measuring 8 mm in AP diameter. L4-5: Moderate disc bulge. Ligamentum flavum hypertrophy. There is moderate facet arthropathy. Moderate right and mild left neural foraminal narrowing, with likely contact of the exiting nerve root on the right. Moderate spinal canal narrowing with AP diameter of 6 mm. L5-S1: Moderate disc bulge and moderate facet arthropathy. Moderate left and mild right neural foraminal narrowing. Frnq-bu-fkmuzcnz spinal canal narrowing. MRI/Spine Lumbar (Routine) IMPRESSION: 1. Moderate multilevel degenerative changes of the lumbar spine, worst at L4-5 and L5-S1 as detailed above. 2. Leftward curvature of the lumbar spine. Reading Location: [facility] CC: RENEE Bojorquez; Dr. Minerva Shaver MD [employer] Certified Network Associate: Signed Normal [facility] Anion gap in Serum or Plasma Ordered By: Omid Moreno on 09-17-2024 Anion gap [Moles/Vol] 14 mmol/L 5- [facility] BUN/creatinine ratioOrdered By: Omid Moreno on 09-17-2024 Urea nitrogen/Creatinine [Mass ratio] 33.5 mg/mg High 02-[address] [facility] Carbon dioxide, total [Moles /volume] in Central venous bloodOrdered By: Omid Moreno on 09-17-2024 CO2 [Moles/Vol] 25.2 mmol/L 21.0-32.[address] [facility] Chloride assayOrdered By: Gini Moreno on 09-17-2024 Chloride [Moles/Vol] 100 mmol/L 98-108 [facility] Glomerular filtration rate ( GFR) estimation/1.73 sq m using serum, plasma, or whole bOrdered By: Omid Moreno on 09-17-2024 GFR/1.73 sq M.predicted among non-blacks MDRD (S/P/Bld) [Vol rate/Area] 49 mL/min/{1.73_m2} Low >[address] [facility] Comment on above: mL/min/1.73m2 CKD-EP I Creatinine Equation (2020) Potassium measurement (mass/ volume)Ordered By: Omid Moreno on 09-17-2024 Potassium (Unsp spec) [Mass/Vol] 3.7 mmol/L 3.3-5.[address] [facility] Renal Profileon 09-17-2024 Albumin [Mass/Vol] 4.5 g/dL Normal 3.4-4.8 [facility] Comment on above: Performed By: #### L 500.3600 #### [facility] Laboratory [address] [place], [place], [address] BUN/CRE 33.5 RATIO High 02-[address] [facility] Comment on above: Performed By: #### L 500.3600 #### [facility] Laboratory [address] [place], [address] Calcium [Mass/Vol] 9.8 mg/dL Normal 7.6-11.0 [facility] Comment on above: Performed By: #### L 500.3600 #### [facility] [address] [place], [address] Chloride [Moles/Vol] 100 mmol/L Normal 98-108 [facility] Comment on above: Performed By: #### L 500.3600 #### [facility] [address] [place], [address] CO2 [Moles/Vol] 25.2 mmol/L Normal 21.0-32.[address] [facility] Comment on above: Performed By: #### L 500.3600 #### [facility] [address] [place], [address] Creatinine [Mass/Vol] 1.15 mg/dL Normal 0.70-1.20 [facility] Comment on above: Performed By: #### L 500.3600 #### [facility] [address] [place], [address] GAP 14 Normal 5-[address] [facility] Comment on above: Performed By: #### L 500.3600 #### [facility] [address] [place], [address] GFR/1.73 sq M.predicted among non-blacks MDRD (S/P/Bld) [Vol rate/Area] 49 mL/min/{1.73_m2} Low >[address] [facility] Comment on above: Result Comment: mL/m in/1.73m2 CKD-EPI Creatinine Equation (2020) Performed By: #### L 500.3600 #### [facility] [address] [place], [address] Glucose [Mass/Vol] 114 mg/dL High 70-99 [facility] Comment on above: Performed By: #### L 500.3600 #### [facility] [address] [place], [address] Phosphate [Mass/Vol] 4.1 mg/dL Normal 2.7-4.5 [facility] Comment on above: Performed By: #### L 500.3600 #### [facility] [address] [place], [address] Potassium [Moles/Vol] 3.7 mmol/L Normal 3.3-5.1 [facility] Comment on above: Performed By: #### L 500.3600 #### [facility] [address] [place], [address] Sodium [Moles/Vol] 140 mmol/L Normal 133-145 [facility] Comment on above: Performed By: #### L 500.3600 #### [facility] Laboratory [address] [place], [address] Urea nitrogen [Mass/Vol] 39 mg/dL High 4-[address] [facility] Comment on above: Performed By: #### L 500.3600 #### [facility] Laboratory [address] [place], [address] Serum creatinine measurement (mass/volume)Ordered By: Omid Moreno on 09-17-2024 Creatinine [Mass/Vol] 1.15 mg/dL 0.70-1.20 [facility] Serum glucose measurement (m ass/volume)Ordered By: Omid Moreno on 09-17-2024 Glucose [Mass/Vol] 114 mg/dL High 70-99 [facility] Serum or plasma albumin michelle urement (mass/volume)Ordered By: Omid Moreno on 09-17-2024 Albumin [Mass/Vol] 4.5 g/dL 3.4-4.8 [facility] Serum or plasma calcium michelle urement (mass/volume)Ordered By: Omid Moreno on 09-17-2024 Calcium [Mass/Vol] 9.8 mg/dL 7.6-11.0 [facility] Serum or plasma urea nitroge n measurement (mass/volume)Ordered By: Omid Moreno on 09-17-2024 Urea nitrogen [Mass/Vol] 39 mg/dL High 4-[address] [facility] Sodium levelOrdered By: Sera Moreno on 09-17-2024 Sodium [Moles/Vol] 140 mmol/L 133-145 [facility] NCS and/or EMG Patienton NCS and/or EMG Patient [facility] Pulmonary Services/Neurology [address] [place] [address] MR#: [id number] Acct: [id number] Name: ELIZABETH PERSAUD Rep #: [id number] : 1945 79 From: Nils Haddad MD Referring Dr: Ada Jaeger Status: REG CLI Location: [facility] Date: 09/15/24 Sex: F C NCS and/or EMG Patient Report Ordering Doctor: Ada Jaeger DATE OF SERVICE: 09/15/24 Elizabeth presents numbness and tingling in the left hand. Electrodiagnostic findings: Left median motor nerve demonstrates normal distal latency with reduced amplitude and reduced conduction velocity. Left ulnar motor response is within normal limits. Prolonged median sensory latency at the wrist. Normal ulnar and radial sensory sponsors. Needle EMG testing was performed the left upper limb. All muscles tested showed no evidence of denervation with normal motor unit action potentials. Electrodiagnostic impression: This is an abnormal study in the left upper limb. 2. Electrodiagnostic findings suggestive of left-sided median mononeuropathy. This consistent with a moderate left carpal tunnel syndrome. 2. There is no electrodiagnostic evidence for cervical radiculopathy. Multi [facility] Codes Neurology Neurology Interp Codes: 75285-89 Musc test done w/n test comp (interp) and 24986-01 Nrv cndj tst 5-6 studies (interp) 09/15/24 1334 Date Nils Haddad MD CC: RENEE Bojorquez; Dr. Nils Haddad MD; Dr. Minerva Shaver MD Date Dictated: 09/15/241324 Date Transcribed: 09/15/241324 [employer] Certified Network Associate: AA Signed Normal [facility] Cerv Spine 4 or 5 Viewson Cerv Spine [address] [facility] Imaging Services [address] [place] [place] [address] [phone] Cerv Spine 4 or 5 Views MR#: [id number] Acct: [id number] Name: ELIZABETH PERSAUD Rep #: [id number] : 1945 F 79 From: Vianca Cruz MD PCP: Dr. Minerva Shaver MD Status: REG CLI Study: Cerv Spine 4 or 5 Views Date of Exam: 08/17/24 Exam# [id number] Ordering Dr: Ada Jaeger PROCEDURE: CERV SPINE 4 OR 5 VIEWS 08/17/2024 REASON FOR EXAM: PAIN TECHNIQUE: 2 views of the cervical spine. COMPARISON: None available FINDINGS: Vertebrae: Vertebral body heights are well preserved. Postsurgical changes of a plate and screw fixation within the anterior C3-C5 level. disc spaces: Multilevel loss of intervertebral disc height along the C3-C4, and C4-C5 Alignment: Exaggerated lordosis of the cervical spine. No dynamic instability. soft tissues: No overlying soft tissue swelling. Other: None RAD/Cerv Spine 4 or 5 Views IMPRESSION: *No dynamic instability on flexion and extension views. *Postsurgical changes anterior approach spinal fusion C3-C5 level. Reading Location: [facility] CC: RENEE Bojorquez; Dr. Minerva Shaver MD [employer] Certified Network Associate: Signed Normal [facility] L/S Spine Min 4 Viewson L/S Spine Min [address] [facility] Imaging Services [address] [place] [address] L/S Spine Min 4 Views MR#: [id number] Acct: [id number] Name: ELIZABETH PERSAUD Rep #: [id number] : 1945 F 79 From: Manuel Becerril i, MD PCP: Dr. Minerva Shaver MD Status: REG CLI Study: L/S Spine Min 4 Views Date of Exam: 08/17/24 Exam# [id number] Ordering Dr: Ada Jaeger PROCEDURE: 08/17/2024 REASON FOR EXAM: PAIN TECHNIQUE: Standing AP view(s) of the thoracic and lumbar spine. COMPARISON: None. FINDINGS: Mild S shaped scoliosis is present. There is extensive DJD throughout the lumbosacral spine. There is disc space narrowing throughout. There is subchondral sclerosis at the endplates of the vertebral bodies. There is osteophytic spurring. Extensive facet arthropathy seen throughout. There is diffuse osteopenia present. Extensive atheromatous calcification seen within the aorta.? Surgical clips seen within the deep pelvis, partially visualized. Correlate clinically. RAD/L/S Spine Min 4 Views IMPRESSION: Extensive lumbosacral degenerative arthropathy Reading Location: [id number] CC: RENEE Bojorquez; Dr. Minerva Shaver MD [employer] Certified Network Associate: Signed Normal [facility] Orthopedic Visit Reporton Orthopedic Visit Report [facility] [address] [place] [address] OFFICE VISIT Date of Service: 08/17/24 MR#: [id number] Acct: [id number] Name: ELIZABETH PERSAUD Rep #: [id number] : 1945 Provider: RENEE Bojorquez Age/Sex: 79/F Location: [facility].JEANNETTE Status: Signed Intake Vital Signs 07/31/24 22:30 08/17/24 11:00 Height 5 ft 1 in 5 ft 1 in Weight: 138 lb 2 oz BMI 26.1 Intake Visit Reasons: LUMBAR SPINE Chief Complaint: Lumbar spine and neck pain Accompanied by: Self Is patient in pain?: Yes Pain scale (1-10): 6 Allergies etodolac Allergy (Intermediate, Verified 08/17/24 11:04) Other diltiazem HCl (From Cardizem) Allergy (Verified 08/17/24 11:04) Swelling of face and neck naproxen Allergy (Verified 08/17/24 11:04) Swelling (whole body) prednisone Allergy (Verified 08/17/24 11:04) Other amiodarone Adverse Reaction (Severe, Verified 08/17/24 11:04) Severe dyspnea after taking PO Amiodarone adhesive Adverse Reaction (Verified 08/17/24 11:04) Rash albuterol Adverse Reaction (Verified 08/17/24 11:04) Other codeine Adverse Reaction (Verified 08/17/24 11:04) Vomiting hydrocodone bitartrate (From Vicodin) Adverse Reaction (Verified 08/17/24 11:04) Vomiting morphine Adverse Reaction (Verified 08/17/24 11:04) Vomiting Medications ???Medication ???Instructions ???Recorded ???Confirmed ???Type multivitamin with folic acid 400 1 tab PO DAILY supplement 03/15/13 08/17/24 History mcg tablet cyclobenzaprine 10 mg tablet 10 mg PO HS PRN muscle spasm 07/2508/17/24 History fluticasone fur. 100 mcg-umeclid 1 ea inhalation QDAY 08/11/2301/03 History 62.5 mcg-vilant 25 mcg inhalat.powder (Trelegy Ellipta) fluticasone propionate 50 2 spray intranasal QDAY PRN 08/17/24 History mcg/actuation nasal allergy symptoms spray,suspension melatonin 5 mg tablet 10 mg PO HS PRN insomnia 08/11/23 08/17/24 History empagliflozin 10 mg tablet 10 mg PO DAILY #90 tabs 12/03/23 0 08/17/24 Rx (Jardiance) omeprazole 40 mg capsule,delayed 40 mg PO QDAY 12/22/23 08/17/24 Hi story release spironolactone 25 mg tablet 25 mg PO DAILY #30 tabs 03/24/24 0 08/17/24 Rx calcium 333 mg-magnesium 133 mg-D3 1 tab PO DAILY 04/19/24 08/17/24 History 1.67 mcg-zinc 5 mg tablet dofetilide 125 mcg capsule 125 mcg PO BID 04/19/24 08/17/24 H istory metoprolol succinate 25 mg 25 mg PO QDAY 04/19/24 08/17/24 Hi story tablet,extended release 24 hr sucralfate 100 mg/mL oral 10 ml PO ACHS PRN stoma 04/28/24 0 08/17/24 History suspension apixaban 5 mg tablet 5 mg PO BID #180 tabs 06/25/2401/03 Rx furosemide 20 mg tablet 40 mg PO QDAY 07/27/24 08/17/24 Hi story Have you fallen in the past year?: No PFSH Medical History Osteoarthritis of right hip Right hip pain Hamstring muscle strain Left hip pain Acute stroke due to ischemia Tubular adenoma of colon URI (upper respiratory infection) Chronic neck and back pain Difficulty balancing when standing Abnormal bruising Diarrhea Chest pain Heart disease Shoulder pain SOB (shortness of breath) Cancer History of DVT (deep vein thrombosis) Arthritis Panlobular emphysema Atrial fibrillation Hypertension Rotator cuff tear Tendonitis of shoulder, right Carpal tunnel syndrome Calculus of kidney Moses's esophagus Paroxysmal atrial fibrillation Chronic diastolic (congestive) heart failure 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 Cardiomyopathy in other diseases classified elsewhere Nonrheumatic aortic valve stenosis Non-rheumatic tricuspid valve insufficiency Scoliosis of cervical spine GERD (gastroesophageal reflux disease) Surgical History Hx of fusion of cervical spine History of radiofrequency ablation procedure for cardiac arrhythmia (07/27/15) History of left heart catheterization (03/15/13) History of cardioversion (04/15/24) Hx of cholecystectomy H/O neck surgery ovarian surgery H/O hernia repair Family History Sister Afib Father CAD (coronary [...] seatbelt use: always do you feel safe (more content not included)... [facility] ) ELIZABETH PERSAUD ([id number]) 1945 F MISSAEL Date Time Provider Department 08/11/24 8:40 AM DIANNA BALLARD During your visit today, we recorded the following information about you: Pulse Respiration Blood pressure 74/minute 16/minute 138/78 Dianna Ballard APRN.[employer] 08/11/2024 10:19 AM Signed CC: Patient presents with: Dizziness: Vertigo x 6 days HPI Elizabeth Persaud is a 79 year old female who presents today for vertigo for 6 days. A week prior to this was at [facility] for A-fib with RVR with symptoms of palpitations that were resolved with fluids and 3 doses of IV lopressor that she converted to SR. Has appointment with her title curator for ablation later today. Dizziness has been mild but still having to hold onto things because she doesn't want to fall. Has chronic vertigo and deals with this regularly. Has been out of her flonase and noticed her lymph nodes in her throat and around her ear are swollen with sinus drainage. Called ENT for an appointment but unable to get in for a few weeks. Using vicks eucalyptus in the shower which helped. Also picked up her flonase and restarted it last night. Using non drowsy dramamine also which also helps. Denies syncope, fever, chills, cough, wheezing, shortness of breath, further palpitations, chest pain, sore throat, fatigue, confusion, difficulty urination, dark urine, pain with urination, or abdominal pain. REVIEW OF SYSTEMS See HPI PAST MEDICAL HISTORY Diagnosis Date Anxiety Arthritis Atrial fibrillation (HCC) s/p ablation 07/2015 Backache, unspecified Moses's esophagus Basal cell carcinoma BPPV (benign paroxysmal positional vertigo) Cancer (HCC) Basal cell on forehead Carpal [...] TUBE ABDL/VAG APPR UNI/BI Tubal ligation NEUROPLASTY AND/TRANSPOS MEDIAN NRV CARPAL TUNNE 02/14/2012 Carpal tunnel [...] surgery with implants- Dr Jacob Aguilar at [facility] PAST SURGICAL HISTORY OF 07/27/2015 cryo ablation, cardiac PAST SURGICAL HISTORY OF cardiac ablation RPR UMBILICAL HRNA 5 YRS/> REDUCIBLE 07/17/2010 Hernia repair, umbilical >5yr [facility] Dr Manuel Hoover SHX COSMETIC SURGERY SKIN BIOPSY HX ALLERGIES Cardizem [Diltiazem Hcl], Codeine, Entex [Phenylephrine-Guaifenesin] , Etodolac, Meloxicam, Naproxen, Tape [Adhesive Tape (Rosins)], Trazodone, and Zantac [Ranitidine Hcl] MEDICATIONS fluticasone (FLONASE) 50 mcg/actuation nasal spray Use 2 Sprays in each nostril once daily. Rinse mouth after use. benzonatate (TESSALON PERLE) 100 mg capsule Take 1 capsule by mouth three times a day as needed. dofetilide (TIKOSYN) 125 mcg capsule 125 mcg two times a day. tmehziogvfk-nyonkwmij-qsqhl ter (TRELEGY ELLIPTA) 100-62.5-25 mcg inhalation powder Inhale 1 Puff as instructed once daily. sucralfate (CARAFATE) 100 mg/mL suspension Take 10 mL by mouth before meals and at bedtime. (560cc=2wks) nystatin (MYCOSTATIN) 100,000 unit/mL suspension Take 5 mL by mouth four times daily. 1tsp swish in mouth for several minutes, then swallow (or expectorate) 4 times daily until gone. diclofenac, EC, (VOLTAREN) 75 mg EC tablet Takes once daily PRN for acute pain/inflammation. Take with food. omeprazole (PRILOSEC) 40 mg capsule Take 1 capsule by mouth once daily. metoprolol succin (more content not included)... Normal [facility] CBC W/Diff, Automatedon 03-2 Absolute Lymph 4.65 X10 3/uL High 0.83-4.[address] [facility] Comment on above: Performed By: #### L 100.0100, L501.5200, L501.9520, L500.2500 ####[facility] [address] [place], [address] Absolute Neut 4.8 X10 3/uL Normal 2.0-7.[address] [facility] Comment on above: Performed By: #### L 100.0100, L501.5200, L501.9520, L500.2500 ####[facility] [address] [place], [address] Basophils/100 WBC (Bld) 0.5 % Normal 0-[address] [facility] Comment on above: Performed By: #### L 100.0100, L501.5200, L501.9520, L500.2500 ####[facility] [address] [place], [address] Eosinophils/100 WBC (Bld) 1.4 % Normal 0-[address] [facility] Comment on above: Performed By: #### L 100.0100, L501.5200, L501.9520, L500.2500 ####[facility] [address] [place], [address] Erythrocyte distribution width (RBC) [Ratio] 12.9 % Normal 11.6-14.[address] [facility] Comment on above: Performed By: #### L 100.0100, L501.5200, L501.9520, L500.2500 ####[facility] [address] [place], [address] Hematocrit (Bld) [Volume fraction] 42.9 % Normal 37-[address] [facility] Comment on above: Performed By: #### L 100.0100, L501.5200, L501.9520, L500.2500 ####[facility] [address] [place], [address] Hemoglobin (Bld) [Mass/Vol] 14.7 g/dL Normal 12.0-15.[address] [facility] Comment on above: Performed By: #### L 100.0100, L501.5200, L501.9520, L500.2500 ####[facility] [address] [place], [address] IG% 0.400 Normal 0.0-0.[address] [facility] Comment on above: Result Comment: IG% - Immature Granulocytes (promyelocytes, myelocytes and metamyelocytes) > 1% indicates that a LEFT SHIFT is Present. Performed By: #### L 100.0100, L501.5200, L501.9520, L500.2500 ####[facility] [address] [place], [address] Lymphocytes/100 WBC (Bld) 44.5 % High 19-[address] [facility] Comment on above: Performed By: #### L 100.0100, L501.5200, L501.9520, L500.2500 ####[facility] [address] [place], [address] MCH (RBC) [Entitic mass] 31.9 pg Normal 27.0-32.[address] [facility] Comment on above: Performed By: #### L 100.0100, L501.5200, L501.9520, L500.2500 ####[facility] [address] [place], [address] MCHC (RBC) [Mass/Vol] 34.3 g/dL Normal 32-36 [facility] Comment on above: Performed By: #### L 100.0100, L501.5200, L501.9520, L500.2500 ####[facility] [address] [place], [address] MCV (RBC) [Entitic vol] 93.1 fL Normal 81-[address] [facility] Comment on above: Performed By: #### L 100.0100, L501.5200, L501.9520, L500.2500 ####[facility] [address] [place], [address] Monocytes/100 WBC (Bld) 7.7 % Normal 0-[address] [facility] Comment on above: Performed By: #### L 100.0100, L501.5200, L501.9520, L500.2500 ####[facility] [address] [place], [address] Neutrophils/100 WBC (Bld) 45.5 % Low 47-[address] [facility] Comment on above: Performed By: #### L 100.0100, L501.5200, L501.9520, L500.2500 ####[facility] [address] [place], [address] Nucleated RBC (Bld) [#/Vol] 0 10*3/uL Normal 0-[address] [facility] Comment on above: Performed By: #### L 100.0100, L501.5200, L501.9520, L500.2500 ####[facility] [address] [place], [address] Platelet mean volume (Bld) [Entitic vol] 11.0 fL Normal 6.2-12.[address] [facility] Comment on above: Performed By: #### L 100.0100, L501.5200, L501.9520, L500.2500 ####[facility] [address] [place], [address] Platelets (Bld) [#/Vol] 320 10*3/uL Normal 150-[address] [facility] Comment on above: Performed By: #### L 100.0100, L501.5200, L501.9520, L500.2500 ####[facility] [address] [place], [address] RBC (Bld) [#/Vol] 4.61 10*6/uL Normal 4.2-5.4 [facility] Comment on above: Performed By: #### L 100.0100, L501.5200, L501.9520, L500.2500 ####[facility] [address] [place], [address] RDW SD 43.4 fl Normal 35.1-43.[address] [facility] Comment on above: Performed By: #### L 100.0100, L501.5200, L501.9520, L500.2500 ####[facility] [address] [place], [address] WBC (Bld) [#/Vol] 10.5 10*3/uL Normal 4.4-11.0 [facility] Comment on above: Performed By: #### L 100.0100, L501.5200, L501.9520, L500.2500 ####[facility] [address] [place], [address] 12 Lead EKGon 07-31-2024 12 Lead EKG [facility] Cardiovascular Services [address] [place] [address] 12 Lead EKG 07/31/24 2318 MR#: [id number] Acct: [id number] Name: ELIZABETH PERSAUD Rep #: [id number] : 1945 79 From: Maxim Ibarra MD Attending Dr: Status: DEP ER Ordering Dr: Saul Guzman DO Date: 07/31/24 Location: ED Sex: F C Admitted: Test Reason : RHYTHM CHANGE Blood Pressure : */* mmHG Vent. Rate : 67 BPM Atrial Rate : 67 BPM P-R Int : 146 ms QRS Dur : 80 ms QT Int : 438 ms P-R-T Axes : 81 -28 51 degrees QTcB Int : 462 ms Normal sinus rhythm Normal ECG Confirmed by FRED HICKS, MAXIM ([id number]), book or script editor DAVID CONNOLLY ([id number]) on 08/02/2024 6:44:28 AM Referred By: Confirmed By: MAXIM IBARRA MD 08/02/24 0644 Date Maxim Ibarra MD CC: Dr. Minerva Shaver MD; Saul Guzman DO Signed Normal [facility] 12 Lead EKG [facility] [address] [place] [address] 12 Lead EKG 07/31/24 2234 MR#: [id number] Acct: [id number] Name: ELIZABETH PERSAUD Rep #: [id number] : 1945 79 From: Maxim Ibarra MD Attending Dr: Status: DEP ER Ordering Dr: Saul Guzman DO Date: 07/31/24 Location: ED Sex: F C Admitted: Test Reason : PALPITATIONS Blood Pressure : */* mmHG Vent. Rate : 119 BPM Atrial Rate : * BPM P-R Int : * ms QRS Dur : 74 ms QT Int : 336 ms P-R-T Axes : * -33 58 degrees QTcB Int : 472 ms Atrial fibrillation with rapid ventricular response with premature ventricular or aberrantly conducted complexes Left axis deviation Nonspecific ST abnormality Abnormal ECG Confirmed by MAXIM IBARRA MD ([id number]), book or script editor DAVID CONNOLLY ([id number]) on 08/02/2024 6:44:10 AM Referred By: ATIF Confirmed By: MAXIM IBARRA MD 08/02/24 0644 Date Maxim Ibarra MD CC: Dr. Minerva Shaver MD; Saul Guzman DO Signed Normal [facility] Absolute lymphocyte countOrd ered By: Saul Guzman on 07-31-2024 Lymphocytes Auto (Unsp spec) [#/Vol] 4.65 10*3/uL High 0.83-4.[address] [facility] Absolute neutrophil countOrd ered By: Saul Guzman on 07-31-2024 Neutrophils (Bld) [#/Vol] 4.8 10*3/uL 2.0-7.[address] [facility] Anion gap in Serum or Plasma Ordered By: Saul Guzman on 07-31-2024 Anion gap [Moles/Vol] 15 mmol/L 5-15 [facility] Automated lymphocyte count a s percentage of total leukocytesOrdered By: Saul Guzman on 07-31-2024 Lymphocytes/100 WBC Auto (Unsp spec) 44.5 % High 19-[address] [facility] BUN/creatinine ratioOrdered By: Saul Guzman on 07-31-2024 Urea nitrogen/Creatinine [Mass ratio] 25.2 mg/mg High 02-[address] [facility] Basic Metabolic Profile (BMP )on 07-31-2024 BUN/CRE 25.2 RATIO High 02-[address] [facility] Comment on above: Performed By: #### L 100.0100, L501.5200, L501.9520, L500.2500 ####[facility] [address] [place], [address] Calcium [Mass/Vol] 10.1 mg/dL Normal 7.6-11.0 [facility] Comment on above: Performed By: #### L 100.0100, L501.5200, L501.9520, L500.2500 ####[facility] [address] [place], [address] Chloride [Moles/Vol] 105 mmol/L Normal 98-108 [facility] Comment on above: Performed By: #### L 100.0100, L501.5200, L501.9520, L500.2500 ####[facility] [address] [place], [address] CO2 [Moles/Vol] 22.9 mmol/L Normal 21.0-32.[address] [facility] Comment on above: Performed By: #### L 100.0100, L501.5200, L501.9520, L500.2500 ####[facility] [address] [place], [address] Creatinine [Mass/Vol] 1.11 mg/dL Normal 0.70-1.20 [facility] Comment on above: Performed By: #### L 100.0100, L501.5200, L501.9520, L500.2500 ####[facility] [address] [place], [address] ECRCL 35.99 ml/min Low 50-[address] [facility] Comment on above: Performed By: #### L 100.0100, L501.5200, L501.9520, L500.2500 ####[facility] [address] [place], [address] GAP 15 Normal 5-[address] [facility] Comment on above: Performed By: #### L 100.0100, L501.5200, L501.9520, L500.2500 ####[facility] [address] [place], [address] GFR/1.73 sq M.predicted among non-blacks MDRD (S/P/Bld) [Vol rate/Area] 51 mL/min/{1.73_m2} Low >[address] [facility] Comment on above: Result Comment: mL/m in/1.73m2 CKD-EPI Creatinine Equation (2020) Performed By: #### L 100.0100, L501.5200, L501.9520, L500.2500 ####[facility] [address] [place], [address] Glucose [Mass/Vol] 128 mg/dL High 70-99 [facility] Comment on above: Performed By: #### L 100.0100, L501.5200, L501.9520, L500.2500 ####[facility] [address] [place], [address] Potassium [Moles/Vol] 4.6 mmol/L Normal 3.3-5.1 [facility] Comment on above: Result Comment: Hemo lysis present, Results??could be affected. ?? Performed By: #### L 100.0100, L501.5200, L501.9520, L500.2500 ####[facility] [address] [place], [address] Sodium [Moles/Vol] 143 mmol/L Normal 133-145 [facility] Comment on above: Performed By: #### L 100.0100, L501.5200, L501.9520, L500.2500 ####[facility] [address] [place], [address] Urea nitrogen [Mass/Vol] 28 mg/dL High 4-[address] [facility] Comment on above: Performed By: #### L 100.0100, L501.5200, L501.9520, L500.2500 ####[facility] [address] [place], [address] Basophil percentageOrdered B y: Saul Guzman on 07-31-2024 Basophils/100 WBC (Bld) 0.5 % 0-[address] [facility] Carbon dioxide, total [Moles /volume] in Central venous bloodOrdered By: Saul Guzman on 07-31-2024 CO2 [Moles/Vol] 22.9 mmol/L 21.0-32.[address] [facility] Chloride assayOrdered By: Mary Lou Guzman on 07-31-2024 Chloride [Moles/Vol] 105 mmol/L 98-108 [facility] Emergency Department Summary on 07-31-2024 Emergency Department Summary [facility] Medical Records Department [address] [place] [address] Emergency Department Summary 07/31/24 MR#: [id number] Acct: [id number] Name: ELIZABETH PERSAUD Rep #: [id number] : 1945 79 From: Saul Guzman DO PCP: Dr. Minerva Shaver MD Status:[facility] ER Location: ED HPI History of Present Illness Chief Complaint: Palpitations Informant: patient Narrative Narrative: Patient is a 79-year-old female with history of paroxysmal atrial fibrillation status post cardiac ablation roughly 3 months ago. She is on Eliquis Tikosyn and metoprolol secondary to her A-fib. She was at work this evening doing her normal physical activity/job when she began to feel like her heart was racing/skipping beats. She states it does this intermittently so she was not concerned but then began to feel as if she was about to pass out and therefore presents to the ER for evaluation. She states she has been taking all of her medication as directed. She denies any excessive stimulant use or illicit drug use. [facility] Medical History Osteoarthritis of right hip Right hip pain Hamstring muscle strain Left hip pain Acute stroke due to ischemia Tubular adenoma of colon URI (upper respiratory infection) Chronic neck and back pain Difficulty balancing when standing Abnormal bruising Diarrhea Chest pain Heart disease Shoulder pain SOB (shortness of breath) Cancer History of DVT (deep vein thrombosis) Arthritis Panlobular emphysema Atrial fibrillation Hypertension Rotator cuff tear Tendonitis of shoulder, right Carpal tunnel syndrome Calculus of kidney Moses's esophagus Paroxysmal atrial fibrillation Chronic diastolic (congestive) heart failure 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 100 mcg-umeclid 1 ea inhalation QDAY 08/11/23 Unkn own History 62.5 mcg-vilant 25 mcg inhalat.powder (Trelegy Ellipta) fluticasone propionate 50 2 spray intranasal QDAY PRN Unknown History mcg/actuation nasal allergy symptoms spray,suspension melatonin 5 mg tablet 10 mg PO HS PRN insomnia 08/11/23 Unknown History empagliflozin 10 mg tablet 10 mg PO DAILY #90 tabs 12/03/23 U nknown Rx (Jardiance) omeprazole 40 mg capsule,delayed 40 mg PO QDAY 12/22/23 Unknown His tory release spironolactone 25 mg tablet 25 mg PO DAILY #30 tabs 03/24/24 U nknown Rx calcium 333 mg-magnesium 133 mg-D3 1 tab PO DAILY 04/19/24 Unknown History 1.67 mcg-zinc 5 mg tablet dofetilide 125 mcg capsule 125 mcg PO BID 04/19/24 Unknown Hi story metoprolol succinate 25 mg 25 mg PO QDAY 04/19/24 Unknown His tory tablet,extended release 24 hr sucralfate 100 mg/mL oral 10 ml PO ACHS PRN stoma 04/28/24 U nknown History suspension apixaban 5 mg tablet 5 mg PO BID #180 tabs 06/25/24 Unk nown Rx furosemide 20 mg tablet 40 mg PO QDAY 07/27/24 Unknown His tory Allergy/AdvReac Type Severity Reaction Status Date / Time etodolac Allergy Intermediate Other Verified 07/31/24 22:37 diltiazem HCl (From Cardizem) Allergy Swelling Verified 07/31/24 22:37 of face and neck naproxen Allergy Swelling Verified 07/31/24 22:37 (whole body) prednisone Allergy Other Verified 07/31/24 22:37 amiodarone AdvReac Severe Severe Verified 07/31/24 22:37 dyspnea after taking PO Amiodarone adhesive AdvReac Rash Verified 07/31/24 22:37 albuterol AdvReac Other Verified 07/31/24 22:37 codeine AdvReac Vomiting Verified 07/31/24 22:37 hydrocodone bitartrate (From AdvReac Vomiting Verified 07/31/24 22:37 Vicodin) morphine AdvReac Vomiting Verified 07/31/24 22:37 Family History Sister Afib Father CAD (coronary artery disease) Brother CVA (cerebral vascular accident) Mother No problems noted. Sister No problems noted. Brother Wilsons disease Brother Wilsons disease Surgical History Hx of fusion of cervical spine History of radiofrequency ablation procedure for cardiac arrhythmia (07/27/15) History of left heart catheterization (03/15/13) History of cardioversion (04/15/24) Hx of cholecystectomy H/O neck surgery ovarian surgery H/O h (more content not included)... Normal [facility] Eosinophil percentageOrdered By: Saul Guzman on 07-31-2024 Eosinophils/100 WBC (Bld) 1.4 % 0-[address] [facility] Erythrocyte distribution wid th ratioOrdered By: Saul Guzman on 07-31-2024 Erythrocyte distribution width (RBC) [Ratio] 12.9 % 11.6-14.[address] [facility] Erythrocyte distribution wid th standard deviationOrdered By: Saul Guzman on 07-31-2024 Erythrocyte distribution width (RBC) [Entitic vol] 43.4 fL 35.1-43.[address] [facility] Erythrocyte distribution width (RBC) [Ratio] 43.4 fl 35.1-43.[address] [facility] Estimation of creatinine shirin aranceOrdered By: Saul Guzman on 07-31-2024 Estimated Creatinine Clearance Calc 35.99 ml/min Low 50-[address] [facility] GFR/1.73 sq M.predicted flor g non-blacks MDRD (S/P/Bld) [Vol rate/Area]Ordered By: Saul Guzman on 07-31-2024 Estimated GFR (MDRD) Non-Af Amer 51 Low >[address] [facility] Comment on above: mL/min/1.73m2 CKD-EP I Creatinine Equation (2020) Glomerular filtration rate ( GFR) estimation/1.73 sq m using serum, plasma, or whole bOrdered By: Saul Guzman on 07-31-2024 GFR/1.73 sq M.predicted among non-blacks MDRD (S/P/Bld) [Vol rate/Area] 51 mL/min/{1.73_m2} Low >[address] [facility] Comment on above: mL/min/1.73m2 CKD-EP I Creatinine Equation (2020) Hematocrit Auto (Bld) [Volum e fraction]Ordered By: Saul Guzman on 07-31-2024 Hematocrit (Bld) [Volume fraction] 42.9 % 37-[address] [facility] Hemoglobin measurementOrdere d By: Saul Guzman on 07-31-2024 Hemoglobin (Bld) [Mass/Vol] 14.7 g/dL 12.0-15.[address] [facility] Immature granulocytes/100 WB C Auto (Bld)Ordered By: Saul Guzman on 07-31-2024 Immature granulocytes/100 WBC (Bld) 0.400 % 0.0-0.[address] [facility] Comment on above: IG% - Immature Granu locytes (promyelocytes, myelocytes and metamyelocytes) > 1% indicates that a LEFT SHIFT is Present. Lymphocytes Auto (Unsp spec) [#/Vol]Ordered By: Saul Guzman on 07-31-2024 Lymphocytes (Bld) [#/Vol] 4.65 10*3/uL High 0.83-4.[address] [facility] Lymphocytes/100 WBC Auto (Un sp spec)Ordered By: Saul Guzman on 07-31-2024 Lymphocytes/100 WBC (Bld) 44.5 % High 19-[address] [facility] MCV (mean corpuscular volume ) determinationOrdered By: Saul Guzman on 07-31-2024 MCV (RBC) [Entitic vol] 93.1 fL 81-[address] [facility] Magnesiumon 07-31-2024 Magnesium [Mass/Vol] 2.1 mg/dL Normal 1.5-2.2 [facility] Comment on above: Performed By: #### L 100.0100, L501.5200, L501.9520, L500.2500 ####[facility] [address] [place], [address] Magnesium (Unsp spec) [Mass/ Vol]Ordered By: Saul Guzman on 07-31-2024 Magnesium [Mass/Vol] 2.1 mg/dL 1.5-2.2 [facility] Magnesium measurement (mass/ volume)Ordered By: Saul Guzman on 07-31-2024 Magnesium (Unsp spec) [Mass/Vol] 2.1 mg/dL 1.5-2.[address] [facility] Mean corpuscular hemoglobin (MCH) determinationOrdered By: Saul Guzman on 07-31-2024 MCH (RBC) [Entitic mass] 31.9 pg 27.0-32.[address] [facility] Mean corpuscular hemoglobin concentration (MCHC) determinationOrdered By: Saul Guzman on 07-31-2024 MCHC (RBC) [Mass/Vol] 34.3 g/dL 32-36 [facility] Mean platelet volume determi nationOrdered By: Saul Guzman on 07-31-2024 Platelet mean volume (Bld) [Entitic vol] 11.0 fL 6.2-12.[address] [facility] Monocyte percentageOrdered B y: Saul Guzman on 07-31-2024 Monocytes/100 WBC (Bld) 7.7 % 0-[address] [facility] Neutrophil percentageOrdered By: Saul Guzman on 07-31-2024 Neutrophils/100 WBC (Bld) 45.5 % Low 47-[address] [facility] Nucleated red blood cell per centageOrdered By: Saul Guzman on 07-31-2024 Nucleated RBC/100 WBC (Bld) [Ratio] 0 % 0-[address] [facility] Platelet countOrdered By: Mary Lou Guzman on 07-31-2024 Platelets (Bld) [#/Vol] 320 10*3/uL 150-[address] [facility] Potassium (Unsp spec) [Mass/ Vol]Ordered By: Saul Guzman on 07-31-2024 Potassium [Moles/Vol] 4.6 mmol/L 3.3-5.1 [facility] Comment on above: Hemolysis present, R esults could be affected. Potassium measurement (mass/ volume)Ordered By: Saul Guzman on 07-31-2024 Potassium (Unsp spec) [Mass/Vol] 4.6 mmol/L 3.3-5.[address] [facility] Comment on above: Hemolysis present, R esults could be affected. RBC Auto (Bld) [#/Vol]Ordere d By: Saul Guzman on 07-31-2024 RBC (Bld) [#/Vol] 4.61 10*6/uL 4.2-5.4 [facility] Serum creatinine measurement (mass/volume)Ordered By: Saul Guzman on 07-31-2024 Creatinine [Mass/Vol] 1.11 mg/dL 0.70-1.20 [facility] Serum glucose measurement (m ass/volume)Ordered By: Saul Guzman on 07-31-2024 Glucose [Mass/Vol] 128 mg/dL High 70-99 [facility] Serum or plasma calcium michelle urement (mass/volume)Ordered By: Saul Guzman on 07-31-2024 Calcium [Mass/Vol] 10.1 mg/dL 7.6-11.0 [facility] Serum or plasma urea nitroge n measurement (mass/volume)Ordered By: Saul Guzman on 07-31-2024 Urea nitrogen [Mass/Vol] 28 mg/dL High 4-[address] [facility] Sodium levelOrdered By: Rob Guzman on 07-31-2024 Sodium [Moles/Vol] 143 mmol/L 133-145 [facility] TSH DL <= 0.005 mIU/L QnOrde red By: Saul Guzman on 07-31-2024 Thyroid Stimulating Hormone (TSH) 4.480 uIU/mL High 0.300-4.[address] [facility] TSH Qn 4.480 uIU/mL High 0.300-4.[address] [facility] Thyroid Stim Hormone (TSH)on 07-31-2024 TSH 4.480 uIU/mL High 0.300-4.[address] [facility] Comment on above: Performed By: #### L 100.0100, L501.5200, L501.9520, L500.2500 ####[facility] [address] [place], [place], [address] White blood cell (WBC) count Ordered By: Saul Guzman on 07-31-2024 WBC (Bld) [#/Vol] 10.5 10*3/uL 4.4-11.0 [facility] Hips B/L min 2 views w/ Pelv ladan 07-29-2024 Hips B/L min 2 views w/ Pelvis [facility] Imaging Services [address] [place] [address] Hips B/L min 2 views w/ Pelvis MR#: [id number] Acct: [id number] Name: ELIZABETH PERSAUD Rep #: [id number] : 1945 F 79 From: Nolan jiménez MD PCP: Dr. Minerva Shaver MD Status: REG CLI Study: Hips B/L min 2 views w/ Pelvis Date of Exam: 0 07/29/24 Exam# [id number] Ordering Dr: Omid Moreno MD PROCEDURE: HIPS B/L MIN 2 VIEWS W/ PELVIS 07/29/2024 REASON FOR EXAM: LIANA HIP PAIN TECHNIQUE: Three views of both hips were obtained. COMPARISON: Comparison is made with prior study dated August 15, 2023. FINDINGS: Stable marked degree of joint space narrowing and osteoarthritis of the right hip joint with peripheral spur formation. Stable moderate to severe narrowing of the left hip joint as well. Degenerative changes of the symphysis pubis as well as the sacroiliac joints bilaterally. Degenerative changes of the lumbar spine. Bilateral tubal ligation clips are seen in the pelvis. Large amount of fecal material is seen in the colon. RAD/Hips B/L min 2 views w/ Pelvis IMPRESSION: Essentially stable examination with degenerative changes of both hip joints worse on the right side as described. Reading Location: [facility] CC: Dr. Omid Moreno MD; Dr. Minerva Shaver MD [employer] Certified Network Associate: Signed Normal [facility] 12 Lead EKG performed by [facility] on 07-27-2024 12 Lead EKG performed by [facility] [address] [place] [address] 12 Lead EKG performed by [facility] 07/27/24923 MR#: [id number] Acct: [id number] Name: ELIZABETH PERSAUD Rep #: [id number] : 1945 79 From: Nagi Freeman NP FORMULATOR-C Attending Dr: Nagi Freeman FORMULATOR-C Status: DEP AMB Ordering Dr: Nagi Freeman NP FORMULATOR-C Date: 07/27/24 Location: [facility] Sex: F C Admitted: BMS/12 Lead EKG performed by [facility] ECG Report Interpretation S inus Rhythm - occasional ectopic ventricular beat WITHIN NORMAL LIMITSElectronically signed on 07/29/2024 at 07:40 by Maxim [employer] Software Version [id number] 07/29/2446 Date Nagi Freeman NP FORMULATOR-C CC: Dr. Minerva Shaver MD Date Dictated: 07/27/24923 Date Transcribed: 07/27/24923 [employer] Certified Network Associate: LENARD Signed Normal [facility] Cardiology Visit Reporton Cardiology Visit Report [facility] [address] [place] [address] OFFICE VISIT Date of Service: 07/27/24 MR#: [id number] Acct: [id number] Name: ELIZABETH PERSAUD Rep #: [id number] : 1945 Provider: FORMULATOR-C Nagi dalal Age/Sex: 79/F Location: [facility] Status: Signed HPI HPI History of Present Illness Details: ELIZABETH PERSAUD, is a 79 F who presents to the office for a cardiovascular follow up visit. She has a history of previous atrial fibrillation for which she was hospitalized and underwent a ARIS guided cardioversion.???Patient presented to her PCP in May 2022 with complaints of shortness of breath with minimal exertion and leg weakness. She states her heart rates have been in the 90s while working, and increases to 140 on her recumbent exercise bike. At some point her flecainide had gotten discontinued and she was placed on amiodarone for her atrial fibrillation. She states that she is allergic to amiodarone due to worsening dyspnea on exertion. This was discontinued at her last office visit, and she was placed back on flecainide. She had been scheduled for an outpatient cardioversion on 08/06/2022, but had successfully cardioverted on her own. Patient presented to the emergency room on 08/08/2022 with strokelike symptoms. Patient presented because of facial droop, altered sensation and left sided weakness. She had not missed any doses of her Eliquis. Her heart rate was noted to be low at 38. Her metoprolol and Flecainide were placed on hold at that time. Her heart rate did improve. Her CT of the head without contrast revealed no evidence of subdural, epidural, subarachnoid hemorrhage or intraparenchymal hemorrhage. There was no obvious stroke noted. Her MRI of the brain was also negative. 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 She was later discharged from the hospital and instructed to follow with neurology for suspected stroke due to symptomatology. She states she is scheduled to see vascular- Dr. Persaud at [facility] next week. She was seen in the Emergency Room on 12/31/2022 for shortness of breath. Per EMS report she was noted be 80% on room air and placed on CPAP therapy. She received IV Lasix. Her BNP, 394.7, was elevated and her troponin was normal. Her ECG showed sinus rhythm. She was admitted and treated for respiratory failure secondary to acute on chronic congestive heart failure and suspected pneumonia. She underwent an echocardiogram on 12/31/2022 that showed ejection fraction of 60% and moderately enlarged left atrium. She was evaluated with EP at [facility] with plans to undergo ablation and Tikosyn therapy. Her flecainide was discontinued. [facility] worsening shortness of breath despite diuretic adjustment. She was transferred to [facility] for further evaluation due to upcoming ablation procedure. She underwent cardioversion and started on Tikosyn therapy. She returned to atrial fibrillation the following day and underwent a second cardioversion. After her sixth dose of Tikosyn her Qtc was noted be 500. To assist with sinus bradycardia, her metoprolol is reduced to 25 mg p.o. daily. She return to [facility] on 04/22/2024 and she proceeded with a pulsed field energy ablation, pulmonary vein isolation ablation, and cavotricuspid isthmus ablation with pulsed field energy on 04/22/[address] [facility] [address] Hernandez. She developed atrial fibrillation once with rapid atrial pacing that required cardioversion. It was thus recommend that she stay on Tikosyn. Her CT pulmonary vein study showed coronary calcification and it was also recommended to aggressively treat secondary risk factors for coronary artery disease. She underwent pulsed field ablation and right atrium/TV???IVC isthmus ablation at [facility] on 04/22/2024. She did require cardioversion during procedure. Twelve-lead ECG on 07/27/2024 showed sinus rhythm at 64 bpm. She denies chest, arm, jaw, or neck discomfort. She states intermittent palpitations. She states this feels like atrial fibrillation. Her most recent episodes lasted for 50 minutes. This occurred while sitting. She denies bilateral lower extremity edema. She denies claudication. She denies shortness of breath with activity, shortness of breath at rest, orthopnea, or PND. She denies chronic cough. She denies significant, sudden weight gain. She denies lightheadedness, dizziness, near-syncope, or syncope. She denies blood in urine, blood in stool, or epistaxis. He denies fever with chills. She denies myalgia. She denies fatigue. Her exercise level has remained stable. Intake Vital Signs 04/28/24 15:55 07/27/24 09:25 Height 5 ft 1 in 5 ft 2 in Weight: 137 lb BMI 25.0 BP 121/73 H Position Sitting Respiration 18 Pulse 61 Pulse Source Monitor Pulse Oximetry (%) 6 Intake Visit Reaso (more content not included)... [facility] Telephone (INTMWS) ELIZABETH PERSAUD ([id number]) 1945 F [place] Date Time Provider Department 07/23/24 DIANNA BALLARD During your visit today, we recorded the following information about you: Fior Zepeda LPN 07/23/2024 10:17 AM Signed Patient calling needs a return to work note saying she has no restrictions, she forgot to ask for this yesterday at her appt. Patient is asking to have note sent to her my chart. Patient said she works today at 4 pm. Please advise Dianna Ballard APRN.CNP 07/23/2024 3:07 PM Signed Letter sent. Please call and verify it has been received since it is so close to her shift starting. Thank you Dianna Ballard APRN.CNP Allergies As of Date: 07/23/2024 Noted Allergy Reaction CARDIZEM (DILTIAZEM HCL) 01/18/2015 7 - Swelling CODEINE 01/21/2006 11 - Vomiting Comments: Ringing in Ears. ENTEX (PHENYLEPHRINE-GUAIFENESIN) 03/06/2007 2 - Rash ETODOLAC 07/06/2012 14 - Other: See Comments Comments: Heart palpitations MELOXICAM 05/25/2012 14 - Other: See Comments Comments: Heart palpitations NAPROXEN 01/29/2011 7 - Swelling Comments: Possible allergy? Pt relates to naproxen TAPE (ADHESIVE TAPE (ROSINS)) 03/31/2023 2 - Rash TRAZODONE 08/19/2014 14 - Other: See Comments Comments: rapid hear beat ZANTAC (RANITIDINE HCL) 05/29/2016 2 - Rash 7 - Swelling Date Reviewed: 07/22/2024 Reviewed by: Dianna Ballard APRN.CNP - Fully Assessed Reason for Visit: note for work [Other] Prescriptions as of 08/13/2024 - fluticasone (FLONASE) 50 mcg/actuation nasal spray Use 2 Sprays in each nostril once daily. Rinse mouth after use. - benzonatate (TESSALON PERLE) 100 mg capsule Take 1 capsule by mouth three times a day as needed. - dofetilide (TIKOSYN) 125 mcg capsule 125 mcg two times a day. - yijlpzluvlc-vdbxmxwlp-ygbfr ter (TRELEGY ELLIPTA) 100-62.5-25 mcg inhalation powder Inhale 1 Puff as instructed once daily. - sucralfate (CARAFATE) 100 mg/mL suspension Take 10 mL by mouth before meals and at bedtime. (560cc=2wks) - nystatin (MYCOSTATIN) 100,000 unit/mL suspension Take 5 mL by mouth four times daily. 1tsp swish in mouth for several minutes, then swallow (or expectorate) 4 times daily until gone. - diclofenac, EC, (VOLTAREN) 75 mg EC tablet Takes once daily PRN for acute pain/inflammation. Take with food. - omeprazole (PRILOSEC) 40 mg capsule Take 1 capsule by mouth once daily. - metoprolol succinate ER (TOPROL XL) 50 mg 24 hr tablet Take 1 tablet by mouth two times a day. - JARDIANCE 10 mg tablet Take 10 mg by mouth once daily. - Ipratropium (ATROVENT) 17 mcg/actuation inhaler Inhale 2 Puffs as instructed every 6 hours as needed for wheezing/shortness of breath. - furosemide (LASIX) 40 mg tablet Take 1 tablet by mouth twice daily. - apixaban (ELIQUIS) 5 mg tab(s) Take by mouth twice daily. - Bifidobacterium infantis (ALIGN) 10.5 mg (10 million cell) chew Take 1 tablet by mouth once daily. - potassium chloride ER (K-DUR, KLOR-CON) 20 mEq tablet Take 1 tablet by mouth twice daily. - melatonin 3 mg ODT Take 1 tablet by mouth daily at bedtime. - MULTIVITAMIN WITH MINERALS (ONE-A-DAY 50 PLUS ORAL) Take by mouth. - CALCIUM CARBONATE/VITAMIN D3 (VITAMIN D-3 ORAL) Take 1,000 mg by mouth five times daily. - ATISRMS-HZRJJOIOX-XFDZ ORAL Take by mouth. Problem List As Of Date 07/23/2024 Noted Resolved PERSISTENT INSOMNIA [G47.00] 07/16/2006 Moses's esophagus [K22.70] 07/16/2006 CALCULUS OF KIDNEY [N20.0] 07/16/2006 Irritable bowel syndrome [K58.9] 07/16/2006 01/10/2016 Tobacco use disorder [F17.200] 07/16/2006 01/10/2016 Pain in joint, shoulder region [M25.519] 06/22/2008 09/25/2015 ANXIETY GENERALIZED [F41.1] 08/31/2008 01/10/2016 Umbilical hernia without mention of obstruction*07/25/2010 09/25/2015 Carpal tunnel syndrome, left [G56.02] 01/30/2012 Carpal tunnel syndrome, right [G56.01] 01/30/2012 01/10/2016 Right shoulder strain [S46.911A] 03/24/2012 09/25/2015 Tendonitis of shoulder, right [M77.8] 05/25/2012 Rotator cuff tear [M75.100] 07/13/2012 Hematuria [R31.9] 06/09/2013 09/25/2015 Smoking history [Z87.891] 06/09/2013 Hypertension [I10] 07/21/2013 Atrial fibrillation (HCC) [I48.91] 08/19/2014 Panlobular emphysema (HCC) [J43.1] 04/28/2015 01/27/2023 Generalized arthritis [M19.90] 09/25/2015 History of DVT (deep vein thrombosis) [Z86.718] 11/10/2015 Encounter for colonoscopy due to history of cony*11/22/2015 11/22/2015 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 [K22.7*11/22/2015 11/22/2015 S/P cervical spinal fusion [Z98.1] 02/14/2016 BCC (basal cell carcinoma of skin) [C44.91] 12/24/2021 Heart murmur [R01.1] 12/24/2021 CHF (congestive heart failure) (HCC) [I50.9] 12/24/2021 Vaginal enterocele due to incomplete uterovagin*12/24/2021 Moderate COPD (chronic obstructive pulmonary di*01/27/2023 Peripheral arterial disease (HCC) [I73.9] 02 (more content not included)... Normal [facility] CNOVon 07-22-2024 CNOV Office Visit (INTMWS ) ELIZABETH PERSAUD ([id number]) 1945 F [place] Date Time Provider Department 07/22/24 9:40 AM DIANNA BALLARD INTMSERVANDO During your visit today, we recorded the following information about you: Temperature Pulse Respiration Blood pressure 97.6 degrees 64/minute 16/minute 132/74 Weight 61.7 kg Dianna Ballard APRN.[facility] 07/22/2024 12:33 PM Signed CC: Patient presents with: Recheck: 1 week follow up HPI Elizabeth Persaud is a 79 year old female who presents today for follow up. Has been recovering from outpt treatment of pneumonia and then viral URI with otitis media. Dates out of work were 07/04 through 07/22 . Reports she is feeling much better now and is ready to return back to work. Denies fever chills, dizziness, syncope, weakness, falls, confusion, cough, wheezing, shortness of breath, chest pain, edema, or palpitations. REVIEW OF SYSTEMS See HPI PAST MEDICAL HISTORY Diagnosis Date Anxiety Arthritis Atrial fibrillation (HCC) s/p ablation 07/2015 Backache, unspecified Moses's esophagus Basal cell carcinoma BPPV (benign paroxysmal positional vertigo) Cancer (HCC) Basal cell on forehead Carpal [...] TUBE ABDL/VAG APPR UNI/BI Tubal ligation NEUROPLASTY AND/TRANSPOS MEDIAN NRV CARPAL TUNNE 02/14/2012 Carpal tunnel [...] surgery with implants- Dr Jacob Aguilar at [facility] PAST SURGICAL HISTORY OF 07/27/2015 cryo ablation, cardiac PAST SURGICAL HISTORY OF cardiac ablation RPR UMBILICAL HRNA 5 YRS/> REDUCIBLE 07/17/2010 Hernia repair, umbilical >5yr [facility] Dr Manuel Hoover SHX COSMETIC SURGERY SKIN BIOPSY HX ALLERGIES Cardizem [Diltiazem Hcl], Codeine, Entex [Phenylephrine-Guaifenesin] , Etodolac, Meloxicam, Naproxen, Tape [Adhesive Tape (Rosins)], Trazodone, and Zantac [Ranitidine Hcl] MEDICATIONS benzonatate (TESSALON PERLE) 100 mg capsule Take 1 capsule by mouth three times a day as needed. amoxicillin-clavulanate potassium (AUGMENTIN) 875-125 mg per tablet Take 1 tablet by mouth every 12 hours for 7 days. dofetilide (TIKOSYN) 125 mcg capsule 125 mcg two times a day. jsocsbqkpsc-yztzcvjtb-qovuz ter (TRELEGY ELLIPTA) 100-62.5-25 mcg inhalation powder Inhale 1 Puff as instructed once daily. sucralfate (CARAFATE) 100 mg/mL suspension Take 10 mL by mouth before meals and at bedtime. (560cc=2wks) nystatin (MYCOSTATIN) 100,000 unit/mL suspension Take 5 mL by mouth four times daily. 1tsp swish in mouth for several minutes, then swallow (or expectorate) 4 times daily until gone. diclofenac, EC, (VOLTAREN) 75 mg EC tablet Takes once daily PRN for acute pain/inflammation. Take with food. omeprazole (PRILOSEC) 40 mg capsule Take 1 capsule by mouth once daily. metoprolol succinate ER (TOPROL XL) 50 mg 24 hr tablet Take 1 tablet by mouth two times a day. fluticasone (FLONASE) 50 mcg/actuation nasal spray Use 2 Sprays in each nostril once daily. Rinse mouth after use. JARDIANCE 10 mg tablet Take 10 mg by mouth once daily. Ipratropium (ATROVENT) 17 mcg/actuation inhaler Inhale 2 Puffs as instructed every 6 hours as needed for wheezing/shortness of breath. furosemide (LASIX) 40 mg tablet Take 1 tablet by mouth twice daily. apixaban (ELIQUIS) 5 mg tab(s) Take by mouth twice daily. Bifidobacterium infantis (ALIGN) 10.5 m (more content not included)... Normal [facility] CNOVon 07-15-2024 CNOV Office Visit (INTMWS ) ELIZABETH PERSAUD ([id number]) 1945 F [place] Date Time Provider Department 07/15/24 1:40 PM DIANNA BALLARD INTMWS During your visit today, we recorded the following information about you: Temperature Pulse Respiration Blood pressure 97.7 degrees 76/minute 16/minute 124/78 Weight 60.8 kg Dianna Ballard APRN.[employer] 07/15/2024 2:20 PM Signed CC: Patient presents with: Recheck: 1 week follow up [facility] Elizabeth Persaud is a 79 year old female who presents today for follow up on pneumonia. Was seen a week ago and recovering from outpatient treatment of pneumonia. Was feeling better but not fully was following up today to see if she was feeling up to going back to work. Finished her doxycycline this morning. Today she returns and had been feeling better but started feeling ill again 5 days ago. Started with runny nose and sneezing. Then started with fever of 101, body aches, skin was tender, sinus congestion, fatigue, non productive, cough, and just felt terrible. Currently she feels fatigued, low appetite, tickle in her throat producing a cough, sinus congestion, right ear pain, feels like right side of ear is swollen, feels feverish, eyes feel hot, short of breath, wheezing, chest burning with inspiration sometimes, nausea, headaches, and fatigue. Denies change in chronic palpitations, edema, diarrhea, vomiting, dizziness, or syncope. Does have history of a-fib and is on eliquis. Denies any interruption in her eliquis. REVIEW OF SYSTEMS See HPI PAST MEDICAL HISTORY Diagnosis Date Anxiety Arthritis Atrial fibrillation (HCC) s/p ablation 07/2015 Backache, unspecified Moses's esophagus Basal cell carcinoma BPPV (benign paroxysmal positional vertigo) Cancer (HCC) Basal cell on forehead Carpal [...] TUBE ABDL/VAG APPR UNI/BI Tubal ligation NEUROPLASTY AND/TRANSPOS MEDIAN NRV CARPAL TUNNE 02/14/2012 Carpal tunnel [...] 03/2011 B/L cataract surgery with implants- Dr Jacbo Aguilar at [facility] PAST SURGICAL HISTORY OF 07/27/2015 cryo ablation, cardiac PAST SURGICAL HISTORY OF cardiac ablation RPR UMBILICAL HRNA 5 YRS/> REDUCIBLE 07/17/2010 Hernia repair, umbilical >5yr [facility] Dr Manuel Hoover SHX COSMETIC SURGERY SKIN BIOPSY HX ALLERGIES Cardizem [Diltiazem Hcl], Codeine, Entex [Phenylephrine-Guaifenesin] , Etodolac, Meloxicam, Naproxen, Tape [Adhesive Tape (Rosins)], Trazodone, and Zantac [Ranitidine Hcl] MEDICATIONS doxycycline (VIBRA-TABS) 100 mg tablet Take 1 tablet by mouth two times a day for 10 days. dofetilide (TIKOSYN) 125 mcg capsule 125 mcg two times a day. ozbtnsazpdq-zepykhdib-qhjgd ter (TRELEGY ELLIPTA) 100-62.5-25 mcg inhalation powder Inhale 1 Puff as instructed once daily. sucralfate (CARAFATE) 100 mg/mL suspension Take 10 mL by mouth before meals and at bedtime. (560cc=2wks) nystatin (MYCOSTATIN) 100,000 unit/mL suspension Take 5 mL by mouth four times daily. 1tsp swish in mouth for several minutes, then swallow (or expectorate) 4 times daily until gone. diclofenac, EC, (VOLTAREN) 75 mg EC tablet Takes once daily PRN for acute pain/inflammation. Take with food. omeprazole (PRILOSEC) 40 mg capsule Take 1 capsule by mouth once daily. metoprolol succinate ER (TOPROL XL) 50 mg 24 hr tablet Take 1 tablet by mouth two (more content not included)... Normal [facility] CNOVon 07-08-2024 CNOV Office Visit (INTMWS ) ELIZABETH PERSAUD ([id number]) 1945 F [facility] Date Time Provider Department 07/08/24 9:40 AM DIANNA BALLARD During your visit today, we recorded the following information about you: Temperature Pulse Respiration Blood pressure 97.3 degrees 80/minute 16/minute 140/66 Weight 60.3 kg Dianna Ballard APRN.[employer] 07/08/2024 2:39 PM Signed CC: Patient presents with: Recheck: Urgent Care follow up HPI Elizabeth Persaud is a 79 year old female who presents today for express care follow up. Was diagnosed with RUL pneumonia 3 days ago. Started with illness weeks ago but no improvement. Was never tested originally for flu or treated for anything. Did take home covid test which was negative. Finally went to express care cause she kept feeling worse, felt flushed, was feverish with temp of 101.6, and fatigued. Was started on doxycyline. Currently is starting to feel a little better and no longer flushed or feels fevered. Is taking tylenol for headaches. Has been wearing oxygen as needed at home for oxygen saturation less then 90%. Has not needed since yesterday before bed. Still with fatigue, generalized weakness, some shortness of breath, headaches, and body aches. Had a CT of chest already ordered for pulmonary nodules which was completed but not resulted yet. Denies current wheezing, cough, chest pressure, tachycardia, current edema, vomiting, diarrhea, or syncope. Will need [place] papers filled out for work missed. Missed starting the when she had a virtual appointment an had not been able to return. Starting to feel better but still to fatigued and weak to return yet. REVIEW OF SYSTEMS See HPI PAST MEDICAL HISTORY Diagnosis Date Anxiety Arthritis Atrial fibrillation (HCC) s/p ablation 07/2015 Backache, unspecified Moses's esophagus Basal cell carcinoma BPPV (benign paroxysmal positional vertigo) Cancer (HCC) Basal cell on forehead Carpal [...] TUBE ABDL/VAG APPR UNI/BI Tubal ligation NEUROPLASTY AND/TRANSPOS MEDIAN NRV CARPAL TUNNE 02/14/2012 Carpal tunnel [...] surgery with implants- Dr Jacob Aguilar at [facility] PAST SURGICAL HISTORY OF 07/27/2015 cryo ablation, cardiac PAST SURGICAL HISTORY OF cardiac ablation RPR UMBILICAL HRNA 5 YRS/> REDUCIBLE 07/17/2010 Hernia repair, umbilical >5yr [facility] Dr Manuel Hoover SHX COSMETIC SURGERY SKIN BIOPSY HX ALLERGIES Cardizem [Diltiazem Hcl], Codeine, Entex [Phenylephrine-Guaifenesin] , Etodolac, Meloxicam, Naproxen, Tape [Adhesive Tape (Rosins)], Trazodone, and Zantac [Ranitidine Hcl] MEDICATIONS doxycycline (VIBRA-TABS) 100 mg tablet Take 1 tablet by mouth two times a day for 10 days. benzonatate (TESSALON PERLE) 100 mg capsule Take 1 capsule by mouth three times a day as needed for cough for up to 7 days. dofetilide (TIKOSYN) 125 mcg capsule 125 mcg two times a day. zjbsveynigk-gnhgcwwml-bbrfd ter (TRELEGY ELLIPTA) 100-62.5-25 mcg inhalation powder Inhale 1 Puff as instructed once daily. sucralfate (CARAFATE) 100 mg/mL suspension Take 10 mL by mouth before meals and at bedtime. (560cc=2wks) nystatin (MYCOSTATIN) 100,000 unit/mL suspension Take 5 mL by mouth four times daily. 1tsp swish in mouth for several minutes, then swallow (or expectorate) 4 times (more content not included)... Normal [facility] CT CHEST WO IVCONon 07-06-19 CT CHEST WO IVCON * * *Final Report* * * DATE OF EXAM: Jul 06 2024 12:18PM [facility] 0541 - CT CHEST WO IVCON / PROCEDURE REASON: multiple diagnoses * * * * Physician Interpretation * * * * EXAMINATION: CHEST CT WITHOUT CONTRAST CLINICAL HISTORY: Lung nodules. Emphysema. Technique: Spiral CT acquisition of the chest from the thoracic inlet to the upper abdomen without contrast. MQ: [id number] CT Radiation dose: Integrated Dose-length product (DLP) for this visit = 204 mGy*cm CT Dose Reduction Employed: Automated exposure control(AEC) and iterative recon Comparison: None RESULT: Limitations: None. Lines, tubes, and devices: None. Lung parenchyma and airways: There are a few scattered 2 to 3 mm pulmonary nodules, for example a 2 mm nodule in the lateral left upper lobe (7:28) and a 3 mm nodule in the anterior left upper lobe (7:32). Centrilobular emphysema. No acute airspace disease. Central airways are patent. Pleural space: No pleural effusion. No pleural thickening. Lower neck, lymph nodes, and mediastinum: The imaged thyroid gland is normal. No lymphadenopathy in the supraclavicular, axillary, mediastinal, or hilar regions. Heart, pericardium, and thoracic vessels: The thoracic aorta and main pulmonary artery are normal in caliber. The cardiac chambers are normal in size. No coronary artery atherosclerotic calcifications are noted, although the study is not optimized for coronary assessment. No pericardial effusion or thickening. Bones and soft tissues: No destructive bone lesion. Degenerative disease of the thoracic spine. Chest wall is unremarkable. Upper abdomen: No abnormality in the imaged upper abdomen. Localizer images: No additional findings. IMPRESSION: 1. Few scattered 2 to 3 mm pulmonary nodules 2. No thoracic lymphadenopathy 3. Centrilobular emphysema Incidental Finding: Follow-up Acuity: Incidental Finding: Solid: <6 mm (solitary or multiple) Routing Code: N/A Recommendation: No imaging follow-up is recommended Time Frame: N/A Comments: If there are risk factors for lung malignancy, a follow-up chest CT exam could be obtained in 12 months --END OF FINDING-- [employer] Certified Network Associate: BALJIT Transcribe Date/Time: Jul 12 2024 11:24A Dictated by : ACACIA TORRES MD This examination was interpreted and the report reviewed and electronically signed by: ACACIA TORRES MD on Jul 12 2024 11:35AM EST [id number] [id number] Invalid Interpretation Code [facility] CNOVon 07-05-2024 CNOV Office Visit (UCWSTR ) ELIZABETH PERSAUD ([id number]) 1945 F [place] Date Time Provider Department 07/05/24 3:30 PM NADIR PICKARD UCWSTR During your visit today, we recorded the following information about you: Temperature Pulse Respiration Blood pressure 99.3 degrees 88/minute 18/minute 146/70 Weight 61.3 kg Nadir Pickard PA-C 07/05/2024 4:25 PM Signed This note was created using [employer]. Subjective Elizabeth Pesraud is a 79 year old female. Patient is a 79-year-old female who complains of fever, congestion and cough that she has been experiencing for the past 3 days. Patient states that she has a history of pneumonia and that her current symptoms are consistent with same. Patient also has a history of CHF as well as COPD. Patient is not on home oxygen. Patient reports that lung nodules have been noted on previous imaging studies and she is scheduled for CT scan chest tomorrow. Patient does have a 28-cwbk-kxyl history of tobacco use and stopped smoking in 2005. Review of Systems Constitutional: Positive for fever. HENT: Positive for congestion. Respiratory: Positive for cough. All other systems reviewed and are negative. Objective BP 146/70 Pulse 88 Temp 37.4 ?C (99.3 ?F) Resp 18 Wt 61.3 kg (135 lb 2.3 oz) SpO2 92% BMI 25.51 kg/m? Physical Exam Vitals and nursing note reviewed. Constitutional: Appearance: Normal appearance. She is normal weight. HENT: Head: Normocephalic and atraumatic. Right Ear: Tympanic membrane, ear canal and external ear normal. Left Ear: Tympanic membrane, ear canal and external ear normal. Nose: Nose normal. Mouth/Throat: Mouth: Mucous membranes are moist. Pharynx: Oropharynx is clear. Eyes: Extraocular Movements: Extraocular movements intact. Conjunctiva/sclera: Conjunctivae normal. Pupils: Pupils are equal, round, and reactive to light. Cardiovascular: Rate and Rhythm: Normal rate and regular rhythm. Pulses: Normal pulses. Heart sounds: Normal heart sounds. Pulmonary: Effort: Pulmonary effort is normal. Breath sounds: Normal breath sounds. Musculoskeletal: Cervical back: Normal range of motion and neck supple. Skin: General: Skin is warm and dry. Capillary Refill: Capillary refill takes less than 2 seconds. Neurological: General: No focal deficit present. Mental Status: She is alert and oriented to person, place, and time. Psychiatric: Mood and Affect: Mood normal. Behavior: Behavior normal. Thought Content: Thought content normal. Judgment: Judgment normal. Assessment and Plan Physical exam findings as noted above. Chest x-ray demonstrates questionable small hazy opacity overlying the right upper lung. Radiologist suggests follow-up, and as noted above the patient already has a CT scan chest with contrast scheduled for tomorrow by Dr. Laith Montes. Patient was provided with prescriptions for doxycycline 100 mg and Tessalon 100 mg and advised to follow-up with Dr. Montes as scheduled. Patient was, of course, instructed to report to an emergency department if she notes any acute worsening of her symptoms. Patient verbalizes excellent understanding of all instructions. CLINICAL IMPRESSION: RUL Pneumonia ASSESSMENT/PLAN: 1. Viral illness - ICD9: 079.99, ICD10: B34.9 (primary diagnosis) - XR CHEST 2V FRONTAL/LAT 2. Pneumonia of right upper lobe due to infectious organism - ICD9: 486, ICD10: J18.9 - DOXYCYCLINE HYCLATE 100 MG TABLET - BENZONATATE 100 MG CAPSULE Nadir MARIANNE Pickard Allergies As of Date: 07/05/2024 Noted Allergy Reaction CARDIZEM (DILTIAZEM HCL) 01/18/2015 7 - Swelling CODEINE 01/21/2006 11 - Vomiting Comments: Ringing in Ears. ENTEX (PHENYLEPHRINE-GUAIFENESIN) 03/06/2007 2 - Rash ETODOLAC 07/06/2012 14 - Other: See Comments Comments: Heart palpitations MELOXICAM 05/25/2012 14 - Other: See Comments Comments: Heart palpitations NAPROXEN 01/29/2011 7 - Swelling Comments: Possible allergy? Pt relates to naproxen TAPE (ADHESIVE TAPE (ROSINS)) 03/31/2023 2 - Rash TRAZODONE 08/19/2014 14 - Other: See Comments Comments: rapid hear beat ZANTAC (RANITIDINE HCL) 05/29/2016 2 - Rash 7 - Swelling Date Reviewed: 07/05/2024 Reviewed by: Ladonna Navarrete MA - Fully Assessed Reason for Visit: Chest Congestion [236] Cmt: cough, fever and chills x 2 days Primary Visit Diagnosis:Viral illness [B34.9] Other Visit Diagnosis:Pneumonia of right upper lobe due to infectious organism [J18.9] Order(s):XR CHEST 2V FRONTAL/LAT [[id number]] Order #: [id number] #:[id number] -CCF doxycycline (VIBRA-TABS) 100 mg tabletTake 1 tablet by mouth two times a day for 10 days.Disp: 20 tabletRfl: 0 benzonatate (TESSALON PERLE) 100 mg capsuleTake 1 capsule by mouth three times a day as needed for cough for up to 7 days.Disp: 21 capsuleRfl: 0 Prescriptions as of 07/05/2024 - doxycycline (more content not included)... Normal [facility] XR CHEST 2V FRONTAL/LATon XR CHEST 2V FRONTAL/LAT * * *Final Report* * * DATE OF EXAM: Jul 05 2024 3:51PM WOX [id number] - XR CHEST 2V FRONTAL/LAT / PROCEDURE REASON: Viral illness * * * * Physician Interpretation * * * * EXAM TITLE: XR CHEST 2V FRONTAL/LAT EXAM DATE/TIME: 07/05/2024 3:51 PM COMPARISON: Cough CLINICAL INDICATION/HISTORY: Chest x-ray on 01/23/2023 RESULT: Lines, tubes, and devices: None. Lungs and pleura: Questionable small hazy opacity overlying the right upper lung. No lung mass. No pleural effusion or pneumothorax. Cardiomediastinal silhouette: Stable cardiomediastinal silhouette. Other: There are degenerative changes in the spine. Status post cervical spinal fusion. IMPRESSION: Questionable small hazy opacity overlying the right upper lung. Consider follow-up. [employer] Certified Network Associate: BALJIT Transcribe Date/Time: Jul 05 2024 3:51P Dictated by : PRESTON AL MD This examination was interpreted and the report reviewed and electronically signed by: PRESTON AL MD on Jul 05 2024 3:57PM EST [id number] Normal [facility] XR Chest PA and Lateralon IMPRESSION: Questionable small hazy opacity overlying the right upper lung. Consider follow-up. [employer] Certified Network Associate: BALJIT Transcribe Date/Time: Jul 05 2024 3:51P Dictated by : PRESTON AL MD This examination was interpreted and the report reviewed and electronically signed by: PRESTON AL MD on Jul 05 2024 3:57PM EST DIVISION OF RADIOLOGY * * *Final Report* * * DATE OF EXAM: Jul 05 2024 3:51PM WOX [id number] - XR CHEST 2V FRONTAL/LAT / PROCEDURE REASON: Viral illness * * * * Physician Interpretation * * * * EXAM TITLE: XR CHEST 2V FRONTAL/LAT EXAM DATE/TIME: 07/05/2024 3:51 PM COMPARISON: Cough CLINICAL INDICATION/HISTORY: Chest x-ray on 01/23/2023 RESULT: Lines, tubes, and devices: None. Lungs and pleura: Questionable small hazy opacity overlying the right upper lung. No lung mass. No pleural effusion or pneumothorax. Cardiomediastinal silhouette: Stable cardiomediastinal silhouette. Other: There are degenerative changes in the spine. Status post cervical spinal fusion. DIVISION OF RADIOLOGY Provider, [facility] - 07/05/2024 * * *Final Report* * * DATE OF EXAM: Jul 05 2024 3:51PM WOX 5291 - XR CHEST 2V FRONTAL/LAT / PROCEDURE REASON: Viral illness * * * * Physician Interpretation * * * * EXAM TITLE: XR CHEST 2V FRONTAL/LAT EXAM DATE/TIME: 07/05/2024 3:51 PM COMPARISON: Cough CLINICAL INDICATION/HISTORY: Chest x-ray on 01/23/2023 RESULT: Lines, tubes, and devices: None. Lungs and pleura: Questionable small hazy opacity overlying the right upper lung. No lung mass. No pleural effusion or pneumothorax. Cardiomediastinal silhouette: Stable cardiomediastinal silhouette. Other: There are degenerative changes in the spine. Status post cervical spinal fusion. IMPRESSION IMPRESSION: Questionable small hazy opacity overlying the right upper lung. Consider follow-up. [employer] Certified Network Associate: PSCB Transcribe Date/Time: Jul 05 2024 3:51P Dictated by : PRESTON AL MD This examination was interpreted and the report reviewed and electronically signed by: PRESTON AL MD on Jul 05 2024 3:57PM EST [facility] Radiology Study observation (narrative) [facility] XR Chest PA and LateralOrder ed By: [facility] Provider on 07-05-2024 [facility] CNPNon 06-22-2024 CNPN Telephone (PULWS) ELIZABETH PERSAUD ([id number]) 1945 F [place] Date Time Provider Department 06/22/24 LAITH MONTES PULMWS During your visit today, we recorded the following information about you: Laith Montes MD 06/22/2024 10:40 AM Signed Left voicemail message regarding outside images. CT chest vein mapping. Lungs that are in view show emphysema and a few 3 mm nodules. Unable to assess all lung jack. Will need full chest CT. Allergies As of Date: 06/22/2024 Noted Allergy Reaction CARDIZEM (DILTIAZEM HCL) 01/18/2015 7 - Swelling CODEINE 01/21/2006 11 - Vomiting Comments: Ringing in Ears. ENTEX (PHENYLEPHRINE-GUAIFENESIN) 03/06/2007 2 - Rash ETODOLAC 07/06/2012 14 - Other: See Comments Comments: Heart palpitations MELOXICAM 05/25/2012 14 - Other: See Comments Comments: Heart palpitations NAPROXEN 01/29/2011 7 - Swelling Comments: Possible allergy? Pt relates to naproxen TAPE (ADHESIVE TAPE (ROSINS)) 03/31/2023 2 - Rash TRAZODONE 08/19/2014 14 - Other: See Comments Comments: rapid hear beat ZANTAC (RANITIDINE HCL) 05/29/2016 2 - Rash 7 - Swelling Date Reviewed: 06/17/2024 Reviewed by: Laith Montes MD - Fully Assessed Reason for Visit: Results [95] Orders [681] Cmt: Chest CT Primary Visit Diagnosis:Lung nodules [R91.8] Other Visit Diagnoses:Centrilobular emphysema (HCC) [J43.2] Former cigarette smoker [Z87.891] Order(s):CT CHEST WO IVCON [[id number]] Order #: [id number] FUTURE Prescriptions as of 06/22/2024 - dofetilide (TIKOSYN) 125 mcg capsule 125 mcg two times a day. - gukhbyzvqky-bwkeitlgh-obgyj ter (TRELEGY ELLIPTA) 100-62.5-25 mcg inhalation powder Inhale 1 Puff as instructed once daily. - sucralfate (CARAFATE) 100 mg/mL suspension Take 10 mL by mouth before meals and at bedtime. (560cc=2wks) - nystatin (MYCOSTATIN) 100,000 unit/mL suspension Take 5 mL by mouth four times daily. 1tsp swish in mouth for several minutes, then swallow (or expectorate) 4 times daily until gone. - diclofenac, EC, (VOLTAREN) 75 mg EC tablet Takes once daily PRN for acute pain/inflammation. Take with food. - omeprazole (PRILOSEC) 40 mg capsule Take 1 capsule by mouth once daily. - metoprolol succinate ER (TOPROL XL) 50 mg 24 hr tablet Take 1 tablet by mouth two times a day. - fluticasone (FLONASE) 50 mcg/actuation nasal spray Use 2 Sprays in each nostril once daily. Rinse mouth after use. - JARDIANCE 10 mg tablet Take 10 mg by mouth once daily. - Ipratropium (ATROVENT) 17 mcg/actuation inhaler Inhale 2 Puffs as instructed every 6 hours as needed for wheezing/shortness of breath. - furosemide (LASIX) 40 mg tablet Take 1 tablet by mouth twice daily. - apixaban (ELIQUIS) 5 mg tab(s) Take by mouth twice daily. - Bifidobacterium infantis (ALIGN) 10.5 mg (10 million cell) chew Take 1 tablet by mouth once daily. - potassium chloride ER (K-DUR, KLOR-CON) 20 mEq tablet Take 1 tablet by mouth twice daily. - melatonin 3 mg ODT Take 1 tablet by mouth daily at bedtime. - MULTIVITAMIN WITH MINERALS (ONE-A-DAY 50 PLUS ORAL) Take by mouth. - CALCIUM CARBONATE/VITAMIN D3 (VITAMIN D-3 ORAL) Take 1,000 mg by mouth five times daily. - XTYKESU-NPCOSQWBK-HKFB ORAL Take by mouth. Problem List As Of Date 06/22/2024 Noted Resolved PERSISTENT INSOMNIA [G47.00] 07/16/2006 Moses's esophagus [K22.70] 07/16/2006 CALCULUS OF KIDNEY [N20.0] 07/16/2006 Irritable bowel syndrome [K58.9] 07/16/2006 01/10/2016 Tobacco use disorder [F17.200] 07/16/2006 01/10/2016 Pain in joint, shoulder region [M25.519] 06/22/2008 09/25/2015 ANXIETY GENERALIZED [F41.1] 08/31/2008 01/10/2016 Umbilical hernia without mention of obstruction*07/25/2010 09/25/2015 Carpal tunnel syndrome, left [G56.02] 01/30/2012 Carpal tunnel syndrome, right [G56.01] 01/30/2012 01/10/2016 Right shoulder strain [S46.911A] 03/24/2012 09/25/2015 Tendonitis of shoulder, right [M77.8] 05/25/2012 Rotator cuff tear [M75.100] 07/13/2012 Hematuria [R31.9] 06/09/2013 09/25/2015 Smoking history [Z87.891] 06/09/2013 Hypertension [I10] 07/21/2013 Atrial fibrillation (HCC) [I48.91] 08/19/2014 Panlobular emphysema (HCC) [J43.1] 04/28/2015 01/27/2023 Generalized arthritis [M19.90] 09/25/2015 History of DVT (deep vein thrombosis) [Z86.718] 11/10/2015 Encounter for colonoscopy due to history of cony*11/22/2015 11/22/2015 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 [K22.7*11/22/2015 11/22/2015 S/P cervical spinal fusion [Z98.1] 02/14/2016 BCC (basal cell carcinoma of skin) [C44.91] 12/24/2021 Heart murmur [R01.1] 12/24/2021 CHF (congestive heart failure) (HCC) [I50.9] 12/24/2021 Vaginal enterocele due to incomplete uterovagin*12/24/2021 Moderate COPD (chronic obstructive pulmonary di*01/27/2023 Peripheral arterial disease (HCC) [I73.9] 06/30/2023 Encounter Status:Closed by ALIZE MONTES (more content not included)... Normal [facility] CNOVon 06-17-2024 CNOV Office Visit (PULMWS ) ELIZABETH PERSAUD ([id number]) 1945 F [place] Date Time Provider Department 06/17/24 10:00 AM LAITH MONTES PULMWS During your visit today, we recorded the following information about you: Pulse Respiration Blood pressure Weight 62/minute 16/minute 138/70 59.4 kg Laith Montes MD 06/17/2024 12:38 PM Signed . Respiratory [place] Note Patient name: Elizabeth Persaud PCP: Minerva Shaver MD CC: Follow-up COPD HPI: Elizabeth Persaud 79 year old female former 70 pack year smoker, quitting in 2005 with PMH significant for scoliosis, HFpEF, HTN, GERD, AF, moderate COPD, nocturnal oxygen need. Current therapy with Trelegy Ellipta and as needed albuterol. Since REFUGIO, she had an ablation for her AF at [facility]. From a pulmonary standpoint she is doing better. Less dyspnea. She is compliant with use of her Trelegy. No obvious side effects. Her last pulmonary function testing showed improvement in her airflow from moderate striction to mild obstruction with an FEV1 of 79% predicted. Review of her EMR shows a mapping cardiac CT noting several less than 3 mm pulmonary nodules. She has no previous CT of her chest as she did not qualify for lung cancer screening based on her smoking cessation greater than 15 years. Denies any other respiratory symptoms, chronic cough, sputum, wheezing, chest pain. No need for her albuterol inhaler. DME: [employer] Nocturnal oxygen DATA: CT Cardiac Pulmonary Venogram 04/21/2024 78 y/o/f hx HFmrEF, HTN, 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 Mildly delayed EVITA contrast opacification. No LA/EVITA thrombus. STUDY QUALITY: Study quality is good. OTHER FINDINGS: Aortic calcifications. Small pulmonary nodules across both lobes <3 mm. PAST MEDICAL HISTORY Diagnosis Date Anxiety Arthritis Atrial fibrillation (HCC) s/p ablation 07/2015 Backache, unspecified Moses's esophagus Basal cell carcinoma BPPV (benign paroxysmal positional vertigo) Cancer (HCC) Basal cell on forehead Carpal [...] Swelling Possible allergy? Pt relates to naproxen Tape [Adhesive Tape* Rash Trazodone Other: See Comments rapid hear beat Zantac [Ranitidine * Rash, Swelling dofetilide (TIKOSYN) 125 mcg capsule 125 mcg two times a day. sucralfate (CARAFATE) 100 mg/mL suspension Take 10 mL by mouth before meals and at bedtime. (560cc=2wks) omeprazole (PRILOSEC) 40 mg capsule Take 1 capsule by mouth once daily. metoprolol succinate ER (TOPROL XL) 50 mg 24 hr tablet Take 1 tablet by mouth two times a day. (Patient taking differently: Take 25 mg by mouth once daily.) JARDIANCE 10 mg tablet Take 10 mg by mouth once daily. furosemide (LASIX) 40 mg tablet Take 1 tablet by mouth twice daily. (Patient taking differently: Take 60 mg by mouth two times a day. Take another dose daily as needed for leg swelling) apixaban (ELIQUIS) 5 mg tab(s) Take by mouth twice daily. zjedrgicyyc-hbuybhoze-oablg ter (TRELEGY ELLIPTA) 100-62.5-25 mcg inhalation powder Inhale 1 Puff as instructed once daily. nystatin (MYCOSTATIN) 100,000 unit/mL suspension Take 5 mL by mouth four times daily. 1tsp swish in mouth for several minutes, then swallow (or expectorate) 4 times daily until gone. diclofenac, EC, (VOLTAREN) 75 mg EC tablet Takes once daily PRN for acute pain/inflammation. Take with food. fluticasone (FLONASE) 50 mcg/actuation nasal spray Use 2 Sprays in each nostril once daily. Rinse mouth after use. Ipratropium (ATROVENT) 17 mcg/actuation inhaler Inhale 2 Puffs as instructed every 6 hours as needed for wheezing/shortness of breath. Bifidobacterium infantis (ALIGN) 10.5 mg (10 million cell) chew Take 1 tablet by mouth once daily. potassium chloride ER (K-DUR, KLOR-CON) 20 mEq tablet Take 1 tablet by mouth twice daily. (Patient not taking: Reported on 04/02/2024) melatonin 3 mg ODT Take 1 tablet by mouth daily at bedtime. MULTIVITAMIN WITH MINERALS (ONE-A-DAY 50 PLUS ORAL) Take by mouth. CALCIUM CARBONATE/VITAMIN D3 (VITAMIN D-3 ORAL) Take 1,000 mg by mouth five times daily. RPUFKUM-AQEBTUVOR-EVZF ORAL Take by (more content not included)... Normal [facility] Basic Metabolic Profile (BMP )on 05-26-2024 BUN/CRE 37.0 RATIO High 10-[address] [facility] Comment on above: Performed By: #### L 500.2500, L100.0100, L501.9520, L501.5200 #### [facility] [address] [place], [address] CA,Total 9.8 mg/dL Normal 8.5-10.[address] [facility] Comment on above: Performed By: #### L 500.2500, L100.0100, L501.9520, L501.5200 #### [facility] [address] [place], [address] Chloride [Moles/Vol] 103 mmol/L Normal 98-107 [facility] Comment on above: Performed By: #### L 500.2500, L100.0100, L501.9520, L501.5200 #### [facility] [address] [place], [address] CO2 [Moles/Vol] 28.0 mmol/L Normal 21.0-32.[address] [facility] Comment on above: Performed By: #### L 500.2500, L100.0100, L501.9520, L501.5200 #### [facility] [address] [place], [address] Creatinine [Mass/Vol] 0.95 mg/dL Normal 0.55-1.02 [facility] Comment on above: Result Comment: The validity of the calculated GFR GFRAA in patients over 70 years has not been determined. Clinical correlation is essential. Performed By: #### L 500.2500, L100.0100, L501.9520, L501.5200 #### [facility] [address] [place], [address] ECRCL 39.22 ml/min Normal [facility] Comment on above: Performed By: #### L 500.2500, L100.0100, L501.9520, L501.5200 #### [facility] [address] [place], [address] EST GFR - AA 74 mL/min Normal >[address] [facility] Comment on above: Result Comment: Afri can Fijian GFR Calc Performed By: #### L 500.2500, L100.0100, L501.9520, L501.5200 #### [facility] [address] [place], [address] GAP 8 Normal 5-[address] [facility] Comment on above: Performed By: #### L 500.2500, L100.0100, L501.9520, L501.5200 #### [facility] [address] [place], [address] GFR/1.73 sq M.predicted among non-blacks MDRD (S/P/Bld) [Vol rate/Area] 61 mL/min/{1.73_m2} Normal >[address] [facility] Comment on above: Result Comment: Non- GFR Calc Performed By: #### L 500.2500, L100.0100, L501.9520, L501.5200 #### [facility] [address] [place], [address] Glucose [Mass/Vol] 122 mg/dL High 74-106 [facility] Comment on above: Result Comment: Fast ing Glucose result from 100 to 125 mg/dL suggests IMPAIRED HOMEOSTASIS per A.D.A. criteria. Performed By: #### L 500.2500, L100.0100, L501.9520, L501.5200 #### [facility] [address] [place], [address] Potassium [Moles/Vol] 3.4 mmol/L Low 3.5-5.1 [facility] Comment on above: Performed By: #### L 500.2500, L100.0100, L501.9520, L501.5200 #### [facility] [address] [place], [address] Sodium [Moles/Vol] 139 mmol/L Normal 136-145 [facility] Comment on above: Performed By: #### L 500.2500, L100.0100, L501.9520, L501.5200 #### [facility] [address] [place], [address] Urea nitrogen [Mass/Vol] 35 mg/dL High 7-[address] [facility] Comment on above: Performed By: #### L 500.2500, L100.0100, L501.9520, L501.5200 #### [facility] [address] [place], [address] CBC W/Diff, Automatedon 05-12 Absolute Lymph 3.33 X10 3/uL Normal 0.83-4.[address] [facility] Comment on above: Performed By: #### L 500.2500, L100.0100, L501.9520, L501.5200 #### [facility] [address] [place], [address] Absolute Neut 4.3 X10 3/uL Normal 2.0-7.[address] [facility] Comment on above: Performed By: #### L 500.2500, L100.0100, L501.9520, L501.5200 #### [facility] [address] [place], [address] Basophils/100 WBC (Bld) 0.3 % Normal 0-[address] [facility] Comment on above: Performed By: #### L 500.2500, L100.0100, L501.9520, L501.5200 #### [facility] [address] [place], [address] Eosinophils/100 WBC (Bld) 2.5 % Normal 0-[address] [facility] Comment on above: Performed By: #### L 500.2500, L100.0100, L501.9520, L501.5200 #### [facility] [address] [place], [address] Erythrocyte distribution width (RBC) [Ratio] 13.5 % Normal 11.6-14.[address] [facility] Comment on above: Performed By: #### L 500.2500, L100.0100, L501.9520, L501.5200 #### [facility] [address] [place], [address] Hematocrit (Bld) [Volume fraction] 40.7 % Normal 37-[address] [facility] Comment on above: Performed By: #### L 500.2500, L100.0100, L501.9520, L501.5200 #### [facility] [address] [place], [address] Hemoglobin (Bld) [Mass/Vol] 13.7 g/dL Normal 12.0-15.[address] [facility] Comment on above: Performed By: #### L 500.2500, L100.0100, L501.9520, L501.5200 #### [facility] [address] [place], [address] IG% 0.900 Normal 0.0-0.[address] [facility] Comment on above: Result Comment: IG% - Immature Granulocytes (promyelocytes, myelocytes and metamyelocytes) > 1% indicates that a LEFT SHIFT is Present. Performed By: #### L 500.2500, L100.0100, L501.9520, L501.5200 #### [facility] [address] [place], [address] Lymphocytes/100 WBC (Bld) 38.6 % Normal 19-[address] [facility] Comment on above: Performed By: #### L 500.2500, L100.0100, L501.9520, L501.5200 #### [facility] [address] [place], [address] MCH (RBC) [Entitic mass] 30.7 pg Normal 27.0-32.[address] [facility] Comment on above: Performed By: #### L 500.2500, L100.0100, L501.9520, L501.5200 #### [facility] [address] [place], [address] MCHC (RBC) [Mass/Vol] 33.7 g/dL Normal 32-36 [facility] Comment on above: Performed By: #### L 500.2500, L100.0100, L501.9520, L501.5200 #### [facility] [address] [place], [address] MCV (RBC) [Entitic vol] 91.3 fL Normal 81-[address] [facility] Comment on above: Performed By: #### L 500.2500, L100.0100, L501.9520, L501.5200 #### [facility] [address] [place], [address] Monocytes/100 WBC (Bld) 7.6 % Normal 0-[address] [facility] Comment on above: Performed By: #### L 500.2500, L100.0100, L501.9520, L501.5200 #### [facility] [address] [place], [address] Neutrophils/100 WBC (Bld) 50.1 % Normal 47-[address] [facility] Comment on above: Performed By: #### L 500.2500, L100.0100, L501.9520, L501.5200 #### [facility] [address] [place], [address] Nucleated RBC (Bld) [#/Vol] 0 10*3/uL Normal 0-[address] [facility] Comment on above: Performed By: #### L 500.2500, L100.0100, L501.9520, L501.5200 #### [facility] [address] [place], [address] Platelet mean volume (Bld) [Entitic vol] 10.0 fL Normal 6.2-12.[address] [facility] Comment on above: Performed By: #### L 500.2500, L100.0100, L501.9520, L501.5200 #### [facility] [address] [place], [address] Platelets (Bld) [#/Vol] 332 10*3/uL Normal 150-[address] [facility] Comment on above: Performed By: #### L 500.2500, L100.0100, L501.9520, L501.5200 #### [facility] [address] [place], [address] RBC (Bld) [#/Vol] 4.46 10*6/uL Normal 4.2-5.4 [facility] Comment on above: Performed By: #### L 500.2500, L100.0100, L501.9520, L501.5200 #### [facility] [address] [place], [address] RDW SD 45.1 fl High 35.1-43.[address] [facility] Comment on above: Performed By: #### L 500.2500, L100.0100, L501.9520, L501.5200 #### [facility] [address] [place], [address] WBC (Bld) [#/Vol] 8.6 10*3/uL Normal 4.4-11.0 [facility] Comment on above: Performed By: #### L 500.2500, L100.0100, L501.9520, L501.5200 #### [facility] [address] [place], [address] [facility]24 [facility] Telephone (INTMWS) ELIZABETH PERSAUD ([id number]) 1945 [facility] Date Time Provider Department 05/26/24 MINERVA SHAVER INTMWS During your visit today, we recorded the following information about you: Weight 59.9 kg Veronica Villar, AMELIA 05/26/2024 9:42 AM Signed Kayden, Pharmacy with [facility] calling to let you know pt was in the [facility] at [facility] for A-Fib. thru 04-17-24. Per Kayden it is recommended that a pt be started on an Anticoagulation. She is checking to see if you would be on board to starting pt on Eliquis and follow pt. You would need to send prescription to pt's pharmacy. Please advise Kayden back to let you know what you are willing to do. AMELIA Joe Chitra, MD 05/27/2024 7:57 AM Signed I would be willing to start on medication, but because she is less than 60 kilogram I would like to start her on 2.5 mgs 2 times a day Please reply to bridger kayden with above message and confirm if she would want me to send 90 days at a time ? Confirm the pharmacy too Minerva Pichardo MD, Mary, LPN 05/27/2024 9:49 AM Signed Called and spoke to patient, stated Anticoagulant is being managed by her National Business Director, Dr Ibarra. Patient states will be following up with Nagi Freeman FORMULATOR with [facility]. Brit Burnham LPN May 27, 2024 9:49 AM Minerva Shaver MD 05/28/2024 6:04 AM Signed Thank you , as a favor to me could you please ask the patient before it coming to me, jacqueline If someone has a title curator ask the patient who wpuld be managing inr for afib or valvular issues Regards, Minerva Shaver MD Allergies As of Date: 05/26/2024 Noted Allergy Reaction CARDIZEM (DILTIAZEM HCL) 01/18/2015 7 - Swelling CODEINE 01/21/2006 11 - Vomiting Comments: Ringing in Ears. ENTEX (PHENYLEPHRINE-GUAIFENESIN) 03/06/2007 2 - Rash ETODOLAC 07/06/2012 14 - Other: See Comments Comments: Heart palpitations MELOXICAM 05/25/2012 14 - Other: See Comments Comments: Heart palpitations NAPROXEN 01/29/2011 7 - Swelling Comments: Possible allergy? Pt relates to naproxen TAPE (ADHESIVE TAPE (ROSINS)) 03/31/2023 2 - Rash TRAZODONE 08/19/2014 14 - Other: See Comments Comments: rapid hear beat ZANTAC (RANITIDINE HCL) 05/29/2016 2 - Rash 7 - Swelling Date Reviewed: 04/02/2024 Reviewed by: Brit Burnham LPN - Fully Assessed Reason for Visit: Medication Question [9938] Prescriptions as of 05/28/2024 - nystatin (MYCOSTATIN) 100,000 unit/mL suspension Take 5 mL by mouth four times daily. 1tsp swish in mouth for several minutes, then swallow (or expectorate) 4 times daily until gone. - diclofenac, EC, (VOLTAREN) 75 mg EC tablet Takes once daily PRN for acute pain/inflammation. Take with food. - omeprazole (PRILOSEC) 40 mg capsule Take 1 capsule by mouth once daily. - metoprolol succinate ER (TOPROL XL) 50 mg 24 hr tablet Take 1 tablet by mouth two times a day. - eihwphchmfz-cprndrmcy-jwrlx ter (TRELEGY ELLIPTA) 100-62.5-25 mcg inhalation powder Inhale 1 Puff as instructed once daily. - flecainide (TAMBOCOR) 100 mg tablet Take 1 tablet by mouth two times a day. - fluticasone (FLONASE) 50 mcg/actuation nasal spray Use 2 Sprays in each nostril once daily. Rinse mouth after use. - JARDIANCE 10 mg tablet Take 10 mg by mouth once daily. - Ipratropium (ATROVENT) 17 mcg/actuation inhaler Inhale 2 Puffs as instructed every 6 hours as needed for wheezing/shortness of breath. - furosemide (LASIX) 40 mg tablet Take 1 tablet by mouth twice daily. - apixaban (ELIQUIS) 5 mg tab(s) Take by mouth twice daily. - Bifidobacterium infantis (ALIGN) 10.5 mg (10 million cell) chew Take 1 tablet by mouth once daily. - potassium chloride ER (K-DUR, KLOR-CON) 20 mEq tablet Take 1 tablet by mouth twice daily. - melatonin 3 mg ODT Take 1 tablet by mouth daily at bedtime. - MULTIVITAMIN WITH MINERALS (ONE-A-DAY 50 PLUS ORAL) Take by mouth. - CALCIUM CARBONATE/VITAMIN D3 (VITAMIN D-3 ORAL) Take 1,000 mg by mouth five times daily. - AEKLPPV-VBRJLZKVK-FXGZ ORAL Take by mouth. Problem List As Of Date 05/26/2024 Noted Resolved PERSISTENT INSOMNIA [G47.00] 07/16/2006 Moses's esophagus [K22.70] 07/16/2006 CALCULUS OF KIDNEY [N20.0] 07/16/2006 Irritable bowel syndrome [K58.9] 07/16/2006 01/10/2016 Tobacco use disorder [F17.200] 07/16/2006 01/10/2016 Pain in joint, shoulder region [M25.519] 06/22/2008 09/25/2015 ANXIETY GENERALIZED [F41.1] 08/31/2008 01/10/2016 Umbilical hernia without mention of obstruction*07/25/2010 09/25/2015 Carpal tunnel syndrome, left [G56.02] 01/30/2012 Carpal tunnel syndrome, right [G56.01] 01/30/2012 01/10/2016 Right shoulder strain [S46.911A] 03/24/2012 09/25/2015 Tendonitis of shoulder, right [M77.8] 05/25/2012 Rotator cuff tear [M75.100] 07/13/2012 Hematuria [R31.9] 06/09/2013 09/25/2015 Smoking history [Z87.891] 06/09/2013 H (more content not included)... Normal [facility] Emergency Department Summary on 05-26-2024 Emergency Department Summary [facility] Medical Records Department [address] [place] [address] Emergency Department Summary 05/26/24 MR#: [id number] Acct: [id number] Name: ELIZABETH PERSAUD Rep #: [id number] : 1945 79 From: Saul Guzman DO PCP: Dr. Minerva Shaver MD Status:DEP ER Location: ED HPI History of Present Illness Chief Complaint: Palpitations Informant: patient Narrative Narrative: Patient is a 79-year-old female with history of paroxysmal atrial fibrillation currently on Eliquis. She recently had an ablation 3 to 4 weeks ago secondary to the recurrent nature of her atrial fibrillation. She states that she has been doing well and been taking her medications as directed which include metoprolol and Tikosyn for her A-fib. She states while working she suddenly folic her heart was racing and this made her feel lightheaded and dizzy and shortness of breath. She states this has happened in the past but this time was more intense and was lasting longer and secondary to this presents to the ER for evaluation. [facility] Medical History (Updated 05/26/24 @ 01:[address] Saul Guzman DO) Osteoarthritis of right hip Right hip pain Hamstring muscle strain Left hip pain Acute stroke due to ischemia Tubular adenoma of colon URI (upper respiratory infection) Chronic neck and back pain Difficulty balancing when standing Abnormal bruising Diarrhea Chest pain Heart disease Shoulder pain SOB (shortness of breath) Cancer History of DVT (deep vein thrombosis) Arthritis Panlobular emphysema Atrial fibrillation Hypertension Rotator cuff tear Tendonitis of shoulder, right Carpal tunnel syndrome Calculus of kidney Moses's esophagus Paroxysmal atrial fibrillation Chronic diastolic (congestive) heart failure 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 100 mcg-umeclid 1 ea inhalation QDAY 08/11/23 Unknown History 62.5 mcg-vilant 25 mcg inhalat.powder (Trelegy Ellipta) fluticasone propionate 50 2 spray intranasal QDAY PRN 08/11/23 Unknown History mcg/actuation nasal allergy symptoms spray,suspension melatonin 5 mg tablet 10 mg PO HS PRN insomnia 08/11/23 Unknown History empagliflozin 10 mg tablet 10 mg PO DAILY #90 tabs 12/03/23 Unknown Rx (Jardiance) omeprazole 40 mg capsule,delayed 40 mg PO QDAY 12/22/23 Unknown History release spironolactone 25 mg tablet 25 mg PO DAILY #30 tabs 03/24/24 Unknown Rx atorvastatin 20 mg tablet 20 mg PO QDAY 04/19/24 Unknown History calcium 333 mg-magnesium 133 mg-D3 1 tab PO DAILY 04/19/24 Unknown History 1.67 mcg-zinc 5 mg tablet dofetilide 125 mcg capsule 125 mcg PO BID 04/19/24 Unknown History furosemide 20 mg tablet 20 mg PO TID 04/19/24 Unknown History metoprolol succinate 25 mg 25 mg PO QDAY 04/19/24 Unknown History tablet,extended release 24 hr nystatin 100,000 unit/mL oral 1 ml PO QDAY 04/19/24 Unknown History suspension sucralfate 100 mg/mL oral 10 ml PO ACHS PRN stoma 04/28/24 Unknown History suspension Allergy/AdvReac Type Severity Reaction Status Date / Time etodolac Allergy Intermediate Other Verified 05/25/24 23:21 diltiazem HCl (From Cardizem) Allergy Swelling Verified 05/25/24 23:21 of face and neck naproxen Allergy Swelling Verified 05/25/24 23:21 (whole body) prednisone Allergy Other Verified 05/25/24 23:21 amiodarone AdvReac Severe Severe Verified 05/25/24 23:21 dyspnea after taking PO Amiodarone adhesive AdvReac Rash Verified 05/25/24 23:21 albuterol AdvReac Other Verified 05/25/24 23:21 codeine AdvReac Vomiting Verified 05/25/24 23:21 hydrocodone bitartrate (From AdvReac Vomiting Verified 05/25/24 23:21 Vicodin) morphine AdvReac Vomiting Verified 05/25/24 23:21 Family History Sister Afib Father CAD (coronary artery disease) Brother CVA (cerebral vascular accident) Mother No problems noted. Sister No problems noted. Brother Wilsons disease Brother Wilsons disease Surgical History (Updated 04/23/24 @ 08:34 by Nagi Freeman FORMULATOR, FORMULATOR-C) Hx of fusion of cervical spine History of radiofrequency ablation procedure for cardiac arrhythmia (07/27/15) History of left heart c (more content not included)... Normal [facility] Magnesiumon 05-26-2024 Magnesium [Mass/Vol] 2.0 mg/dL Normal 1.6-2.6 [facility] Comment on above: Performed By: #### L 500.2500, L100.0100, L501.7720, L501.5200 #### [facility] [address] [place], [address] Thyroid Stim Hormone (TSH)on 05-26-2024 TSH 4.880 uIU/mL High 0.358-3.[address] [facility] Comment on above: Performed By: #### L 500.2500, L100.0100, L501.9520, L501.5200 #### [facility] [place], [address] Absolute lymphocyte countOrd ered By: Saul Guzman on 05-25-2024 Lymphocytes Auto (Unsp spec) [#/Vol] 3.33 10*3/uL 0.83-4.[address] [facility] Absolute neutrophil countOrd ered By: Saul Guzman on 05-25-2024 Neutrophils (Bld) [#/Vol] 4.3 10*3/uL 2.0-7.[address] [facility] Automated lymphocyte count a s percentage of total leukocytesOrdered By: Saul Guzman on 05-25-2024 Lymphocytes/100 WBC Auto (Unsp spec) 38.6 % 19-[address] [facility] Basophil percentageOrdered B y: Saul Guzman on 05-25-2024 Basophils/100 WBC (Bld) 0.3 % 0-[address] [facility] Blood urea nitrogen (BUN)/cr eatinine ratioOrdered By: Saul Guzman on 05-25-2024 Urea nitrogen/Creatinine [Mass ratio] 37.0 mg/mg High 10-[address] [facility] Carbon dioxide measurementOr dered By: Saul Guzman on 05-25-2024 CO2 [Moles/Vol] 28.0 mmol/L 21.0-32.[address] [facility] Chloride measurementOrdered By: Saul Guzman on 05-25-2024 Chloride [Moles/Vol] 103 mmol/L 98-107 [facility] Eosinophil percentageOrdered By: Saul Guzman on 05-25-2024 Eosinophils/100 WBC (Bld) 2.5 % 0-[address] [facility] Erythrocyte distribution wid th ratioOrdered By: Saul Guzman on 05-25-2024 Erythrocyte distribution width (RBC) [Ratio] 13.5 % 11.6-14.[address] [facility] Erythrocyte distribution wid th standard deviationOrdered By: Saul Guzman on 05-25-2024 Erythrocyte distribution width (RBC) [Entitic vol] 45.1 fL High 35.1-43.[address] [facility] Erythrocyte distribution width (RBC) [Ratio] 45.1 fl High 35.1-43.[address] [facility] Estimated glomerular filtrat ion rate (GFR) AmericanOrdered By: Saul Guzman on 05-25-2024 Estimated GFR (MDRD) Amer 74 mL/min >[address] [facility] Comment on above: GFR Calc Estimation of creatinine shirin aranceOrdered By: Saul Guzman on 05-25-2024 Estimated Creatinine Clearance Calc 39.22 ml/min [facility] Glomerular filtration rate ( GFR) estimationOrdered By: Saul Guzman on 05-25-2024 Estimated GFR (MDRD) Non-Af Amer 61 mL/min >[address] [facility] Comment on above: Non- GFR Calc GFR/1.73 sq M.predicted among non-blacks MDRD (S/P/Bld) [Vol rate/Area] 61 mL/min/{1.73_m2} >[address] [facility] Comment on above: Non- GFR Calc Glucose measurementOrdered B y: Saul Guzman on 05-25-2024 Glucose [Mass/Vol] 122 mg/dL High 74-106 [facility] Comment on above: Fasting Glucose resu lt from 100 to 125 mg/dL suggests IMPAIRED HOMEOSTASIS per A.D.A. criteria. Hematocrit Auto (Bld) [Volum e fraction]Ordered By: Saul Guzman on 05-25-2024 Hematocrit (Bld) [Volume fraction] 40.7 % 37-[address] [facility] Hemoglobin measurementOrdere d By: Saul Guzman on 05-25-2024 Hemoglobin (Bld) [Mass/Vol] 13.7 g/dL 12.0-15.[address] [facility] Immature granulocytes/100 WB C Auto (Bld)Ordered By: Saul Guzman on 05-25-2024 Immature granulocytes/100 WBC (Bld) 0.900 % 0.0-0.[address] [facility] Comment on above: IG% - Immature Granu locytes (promyelocytes, myelocytes and metamyelocytes) > 1% indicates that a LEFT SHIFT is Present. Lymphocytes Auto (Unsp spec) [#/Vol]Ordered By: Saul Guzman on 05-25-2024 Lymphocytes (Bld) [#/Vol] 3.33 10*3/uL 0.83-4.[address] [facility] Lymphocytes/100 WBC Auto (Un sp spec)Ordered By: Saul Guzman on 05-25-2024 Lymphocytes/100 WBC (Bld) 38.6 % 19-[address] [facility] MCV (mean corpuscular volume ) determinationOrdered By: Saul Guzman on 05-25-2024 MCV (RBC) [Entitic vol] 91.3 fL 81-[address] [facility] Magnesium measurementOrdered By: Saul Guzman on 05-25-2024 Magnesium [Mass/Vol] 2.0 mg/dL 1.6-2.6 [facility] Mean corpuscular hemoglobin (MCH) determinationOrdered By: Saul Guzman on 05-25-2024 MCH (RBC) [Entitic mass] 30.7 pg 27.0-32.[address] [facility] Mean corpuscular hemoglobin concentration (MCHC) determinationOrdered By: Saul Guzman on 05-25-2024 MCHC (RBC) [Mass/Vol] 33.7 g/dL 32-36 [facility] Mean platelet volume determi nationOrdered By: Saul Guzman on 05-25-2024 Platelet mean volume (Bld) [Entitic vol] 10.0 fL 6.2-12.[address] [facility] Monocyte percentageOrdered B y: Saul Guzman on 05-25-2024 Monocytes/100 WBC (Bld) 7.6 % 0-[address] [facility] Neutrophil percentageOrdered By: Saul Guzman on 05-25-2024 Neutrophils/100 WBC (Bld) 50.1 % 47-[address] [facility] Nucleated red blood cell per centageOrdered By: Saul Guzman on 05-25-2024 Nucleated RBC/100 WBC (Bld) [Ratio] 0 % 0-[address] [facility] Platelet countOrdered By: Mary Lou Guzman on 05-25-2024 Platelets (Bld) [#/Vol] 332 10*3/uL 150-[address] [facility] Potassium measurementOrdered By: Saul Guzman on 05-25-2024 Potassium [Moles/Vol] 3.4 mmol/L Low 3.5-5.1 [facility] RBC Auto (Bld) [#/Vol]Ordere d By: Saul Guzman on 05-25-2024 RBC (Bld) [#/Vol] 4.46 10*6/uL 4.2-5.4 [facility] Serum anion gap measurementO rdered By: Saul Guzman on 05-25-2024 Anion gap [Moles/Vol] 8 mmol/L 5-15 [facility] Serum or plasma calcium michelle urement (mass/volume)Ordered By: Saul Guzman on 05-25-2024 Calcium [Mass/Vol] 9.8 mg/dL 8.5-10.1 [facility] Serum or plasma creatinine m easurement (mass/volume)Ordered By: Saul Guzman on 05-25-2024 Creatinine [Mass/Vol] 0.95 mg/dL 0.55-1.02 [facility] Comment on above: The validity of the calculated GFR & GFRAA in patients over 70 years has not been determined. Clinical correlation is essential. Serum or plasma thyroid stim ulating hormone (TSH) measurement (units/volume)Ordered By: Saul Guzman on 05-25-2024 TSH Qn 4.880 uIU/mL High 0.358-3.[address] [facility] Serum or plasma urea nitroge n measurement (mass/volume)Ordered By: Saul Guzman on 05-25-2024 Urea nitrogen [Mass/Vol] 35 mg/dL High 7-[address] [facility] Sodium levelOrdered By: Rob Guzman on 05-25-2024 Sodium [Moles/Vol] 139 mmol/L 136-145 [facility] TSH QnOrdered By: Long on 05-25-2024 Thyroid Stimulating Hormone (TSH) 4.880 uIU/mL High 0.358-3.[address] [facility] White blood cell (WBC) count Ordered By: Saul Guzman on 05-25-2024 WBC (Bld) [#/Vol] 8.6 10*3/uL 4.4-11.0 [facility] Cardiology Visit Reporton Cardiology Visit Report [facility] [address] [place], [place] [address]tito. [address] [place], [place] [address] OFFICE VISIT Date of Service: 04/28/24 MR#: [id number] Acct: [id number] Name: ELIZABETH PERSAUD Rep #: [id number] : 1945 Provider: DANYA dalal Age/Sex: 78/F Location[place] [facility] [place] [facility] [place]: Signed HPI HPI History of Present Illness Details: ELIZABETH PERSAUD, is a 78 F who presents to the office for a cardiovascular follow up visit. She has a history of previous atrial fibrillation for which she was hospitalized and underwent a ARIS guided cardioversion.???Patient presented to her PCP in May 2022 with complaints of shortness of breath with minimal exertion and leg weakness. She states her heart rates have been in the 90s while working, and increases to 140 on her recumbent exercise bike. At some point her flecainide had gotten discontinued and she was placed on amiodarone for her atrial fibrillation. She states that she is allergic to amiodarone due to worsening dyspnea on exertion. This was discontinued at her last office visit, and she was placed back on flecainide. She had been scheduled for an outpatient cardioversion on 08/06/2022, but had successfully cardioverted on her own. Patient presented to the emergency room on 08/08/2022 with strokelike symptoms. Patient presented because of facial droop, altered sensation and left sided weakness. She had not missed any doses of her Eliquis. Her heart rate was noted to be low at 38. Her metoprolol and Flecainide were placed on hold at that time. Her heart rate did improve. Her CT of the head without contrast revealed no evidence of subdural, epidural, subarachnoid hemorrhage or intraparenchymal hemorrhage. There was no obvious stroke noted. Her MRI of the brain was also negative. 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 She was later discharged from the hospital and instructed to follow with neurology for suspected stroke due to symptomatology. She states she is scheduled to see vascular- Dr. Persaud at [facility] next week. She was seen in the Emergency Room on 12/31/2022 for shortness of breath. Per EMS report she was noted be 80% on room air and placed on CPAP therapy. She received IV Lasix. Her BNP, 394.7, was elevated and her troponin was normal. Her ECG showed sinus rhythm. She was admitted and treated for respiratory failure secondary to acute on chronic congestive heart failure and suspected pneumonia. She underwent an echocardiogram on 12/31/2022 that showed ejection fraction of 60% and moderately enlarged left atrium. She was evaluated with EP at [facility] with plans to undergo ablation and Tikosyn therapy. Her flecainide was discontinued. She presented [facility] emergency department for worsening shortness of breath despite diuretic adjustment. She was transferred to [facility] for further evaluation due to upcoming ablation procedure. She underwent cardioversion and started on Tikosyn therapy. She returned to atrial fibrillation the following day and underwent a second cardioversion. After her sixth dose of Tikosyn her Qtc was noted be 500. To assist with sinus bradycardia, her metoprolol is reduced to 25 mg p.o. daily. She return to [facility] on 04/22/2024 and she proceeded with a pulsed field energy ablation, pulmonary vein isolation ablation, and cavotricuspid isthmus ablation with pulsed field energy on 04/22/[address] [facility] [address] Hernandez. She developed atrial fibrillation once with rapid atrial pacing that required cardioversion. It was thus recommend that she stay on Tikosyn. Her CT pulmonary vein study showed coronary calcification and it was also recommended to aggressively treat secondary risk factors for coronary artery disease. She underwent pulsed field ablation and right atrium/TV???IVC isthmus ablation at [facility] on 04/22/2024. She did require cardioversion during procedure. She acknowledges chest discomfort that she attributes to recent cardioversions. She acknowledges intermittent palpitations. She states this is much improved since recent ablation and cardioversion. She states that the palpitations are self-limiting. She denies bilateral lower extremity BROOKE or claudication. She denies shortness of breath at rest, shortness of breath with activity, or orthopnea. With her palpitations she noted lightheadedness. She denies dizziness, near-syncope, or syncope. She acknowledges fatigue that she feels to be improving since recent hospitalizations. 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 Normal [facility] EP CARDIOVERSION EXTERNALon 04-23-2024 EP CARDIOVERSION EXTERNAL Elizabeth Persaud is a 78 y.o. female with history of persistent AF, HFpEF/NICM (EF 60%), TIA (07/2022), COPD who presents for an AF ablation. Patient arrives to lab in AF. EVITA confirmed to have absent thrombus by CT pulmonary venogram prior to start of case. Conclusions: RFV x3 access obtained under real-time US guidance. Systemic anticoagulation with heparin was given to achieve an ACT of 350 seconds. Glycopyrrolate given A CS catheter was utilized. ICE catheter was utilized to guide interatrial transeptal puncture x1. DCCV to sinus rhythm performed 3D electroanatomic/voltage mapping using a Penta-ray catheter ([employer]) was used to create an anatomical shell of the LA and PVs. PFA of the pulmonary veins (8 applications per vein) with successfully pulmonary vein isolation of all 4 veins with confirmation of PV isolation with the mapping catheter. PFA of the posterior wall with box lesion (roof and inferior line) with successful posterior wall isolation with confirmation of PW isolation with the mapping catheter. Lesions anterior to the RSPV and RIPV were also performed Re mapping confirmed isolation of the veins and posterior wall. CTI PFA was performed to manage typical atrial flutter. Bidirectional block was achieved. Nitroglycerine 300mcg IV push 30 seconds prior to PFA by anesthesia team, ECG was monitored closely for ST elevation. Protamine sulfate was used to reverse systemic anticoagulation. Sheaths removed and 3-way stopcock access site closure (Woggle) was applied to femoral site. No pericardial effusion on ICE at start or completion of case. Post-ablation EPS: Baseline rhythm is sinus rhythm. Normal sinus node function. Normal AV node function. Normal infranodal conduction (HV=47ms). VA conduction is present and is decremental. No evidence of accessory pathway. 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 She did have AF induced with rapid atrial pacing, which required a cardioversion. No atypical flutter was able to be induced. Plan: Bedrest for 3 hours. Routine woggle recovery. Resume systemic anticoagulation at next scheduled interval. Medrol dose pack. Continue Tikosyn Discharge to home if meets criteria. MCT in 6-8 weeks . Follow up with FORMULATOR in 3-4 months. Table formatting from the original result was not included. Images from the original result were not included. Elizabeth Persaud EP Procedure - EPS/Ablation/Device Ordering Physician: ALLI HERNANDEZ Order #: [id number] Study Date: 04/22/2024 Patient Information Name MRN Description Elizabeth Persaud [id number] 78 y.o. female Physicians Panel Physicians Referring Physician Case Authorizing Physician Alli Hernandez MD (Primary) ANITHA Limon MD Procedures Cardioversion AFIB Ablation Atrial Flutter Ablation Pre Procedure Diagnosis Persistent atrial fibrillation [I48.19] Post Procedure Diagnosis Persistent atrial fibrillation [I48.19] Indications Persistent atrial fibrillation [I48.19 (ICD-10-CM)] Conclusion Elizabeth Persaud is a 78 y.o. female with history of persistent AF, HFpEF/NICM (EF 60%), TIA (07/2022), COPD who presents for an AF ablation. Patient arrives to lab in AF. EVITA confirmed to have absent thrombus by CT pulmonary venogram prior to start of case. Conclusions: RFV x3 access obtained under real-time US guidance. Systemic anticoagulation with heparin was given to achieve an ACT of 350 seconds. Glycopyrrolate given A CS catheter was utilized. ICE catheter was utilized to guide interatrial transeptal puncture x1. DCCV to sinus rhythm performed 3D electroanatomic/voltage mapping using a Penta-ray catheter ([employer]) was used to create an anatomical shell of the LA and PVs. PFA of the pulmonary veins (8 applications per vein) with successfully pulmonary vein isolation of all 4 veins with confirmation of PV isolation with the mapping catheter. PFA of the posterior wall with box lesion (roof and inferior line) with successful posterior wall isolation with confirmation of PW isolation with the mapping catheter. Lesions anterior to the RSPV and RIPV were also performed Re mapping confirmed isolation of the veins and posterior wall. CTI PFA was performed to manage typical atrial flutter. Bidirectional block was achieved. Nitroglycerine 300mcg IV push 30 seconds prior to PFA by anesthesia team, ECG was monitored closely for ST elevation. Protamine sulfate was used to reverse systemic anticoagulation. Sheaths removed and 3-way stopcock access site closure (Woggle) was applied to femoral site. No pericardial effusion on ICE at start or completion of case. Post-ablation EPS: Baseline rhythm is sinus rhythm. Normal sinus node function. Normal AV node function. Normal infranodal conduction (HV=47ms). VA conduction is present and is decremental. No evidence of accessory pathway. Evidence of dual AV node ph (more content not included)... Normal [facility] EP PROCEDURE - EPS/ABLATION/ DEVICEon 04-23-2024 EP PROCEDURE - EPS/ABLATION/DEVICE Elizabeth Persaud is a 78 y.o. female with history of persistent AF, HFpEF/NICM (EF 60%), TIA (07/2022), COPD who presents for an AF ablation. Patient arrives to lab in AF. EVITA confirmed to have absent thrombus by CT pulmonary venogram prior to start of case. Conclusions: RFV x3 access obtained under real-time US guidance. Systemic anticoagulation with heparin was given to achieve an ACT of 350 seconds. Glycopyrrolate given A CS catheter was utilized. ICE catheter was utilized to guide interatrial transeptal puncture x1. DCCV to sinus rhythm performed 3D electroanatomic/voltage mapping using a Penta-ray catheter ([employer]) was used to create an anatomical shell of the LA and PVs. PFA of the pulmonary veins (8 applications per vein) with successfully pulmonary vein isolation of all 4 veins with confirmation of PV isolation with the mapping catheter. PFA of the posterior wall with box lesion (roof and inferior line) with successful posterior wall isolation with confirmation of PW isolation with the mapping catheter. Lesions anterior to the RSPV and RIPV were also performed Re mapping confirmed isolation of the veins and posterior wall. CTI PFA was performed to manage typical atrial flutter. Bidirectional block was achieved. Nitroglycerine 300mcg IV push 30 seconds prior to PFA by anesthesia team, ECG was monitored closely for ST elevation. Protamine sulfate was used to reverse systemic anticoagulation. Sheaths removed and 3-way stopcock access site closure (Woggle) was applied to femoral site. No pericardial effusion on ICE at start or completion of case. Post-ablation EPS: Baseline rhythm is sinus rhythm. Normal sinus node function. Normal AV node function. Normal infranodal conduction (HV=47ms). VA conduction is present and is decremental. No evidence of accessory pathway. 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 She did have AF induced with rapid atrial pacing, which required a cardioversion. No atypical flutter was able to be induced. Plan: Bedrest for 3 hours. Routine woggle recovery. Resume systemic anticoagulation at next scheduled interval. Medrol dose pack. Continue Tikosyn Discharge to home if meets criteria. MCT in 6-8 weeks . Follow up with FORMULATOR in 3-4 months. Table formatting from the original result was not included. Images from the original result were not included. Elizabeth Persaud EP Procedure - EPS/Ablation/Device Ordering Physician: ALLI HERNANDEZ Order #: [id number] Study Date: 04/22/2024 Patient Information Name MRN Description Elizabeth Persaud [id number] 78 y.o. female Physicians Panel Physicians Referring Physician Case Authorizing Physician Alli Hernandez MD (Primary) ANITHA Limon MD Procedures Cardioversion AFIB Ablation Atrial Flutter Ablation Pre Procedure Diagnosis Persistent atrial fibrillation [I48.19] Post Procedure Diagnosis Persistent atrial fibrillation [I48.19] Indications Persistent atrial fibrillation [I48.19 (ICD-10-CM)] Conclusion Elizabeth Persaud is a 78 y.o. female with history of persistent AF, HFpEF/NICM (EF 60%), TIA (07/2022), COPD who presents for an AF ablation. Patient arrives to lab in AF. EVITA confirmed to have absent thrombus by CT pulmonary venogram prior to start of case. Conclusions: RFV x3 access obtained under real-time US guidance. Systemic anticoagulation with heparin was given to achieve an ACT of 350 seconds. Glycopyrrolate given A CS catheter was utilized. ICE catheter was utilized to guide interatrial transeptal puncture x1. DCCV to sinus rhythm performed 3D electroanatomic/voltage mapping using a Penta-ray catheter ([employer]) was used to create an anatomical shell of the LA and PVs. PFA of the pulmonary veins (8 applications per vein) with successfully pulmonary vein isolation of all 4 veins with confirmation of PV isolation with the mapping catheter. PFA of the posterior wall with box lesion (roof and inferior line) with successful posterior wall isolation with confirmation of PW isolation with the mapping catheter. Lesions anterior to the RSPV and RIPV were also performed Re mapping confirmed isolation of the veins and posterior wall. CTI PFA was performed to manage typical atrial flutter. Bidirectional block was achieved. Nitroglycerine 300mcg IV push 30 seconds prior to PFA by anesthesia team, ECG was monitored closely for ST elevation. Protamine sulfate was used to reverse systemic anticoagulation. Sheaths removed and 3-way stopcock access site closure (Woggle) was applied to femoral site. No pericardial effusion on ICE at start or completion of case. Post-ablation EPS: Baseline rhythm is sinus rhythm. Normal sinus node function. Normal AV node function. Normal infranodal conduction (HV=47ms). VA conduction is present and is decremental. No evidence of accessory pathway. Evidence of dual AV node ph (more content not included)... Normal [facility] ACT* LOW RANGE, POCon 2023 ACT LOW RANGE, POC 356.0 High [facility] Interpretation and review of laboratory results Abnormal [facility] Test performed at ad dress of the patient encounter. [facility] ACT LOW RANGE, POC 392.0 High [facility] Interpretation and review of laboratory results Abnormal [facility] Test performed at ad dress of the patient encounter. [facility] ACT LOW RANGE, POC [facility] Comment on above: Out of Range High. The test result is outside clinical range and should not be used for patient-management decisions. Test performed at ad dress of the patient encounter. [facility] PT,INR,PTTon 04-22-2024 aPTT Coag (PPP) [Time] 29.5 s [facility] INR Coag (Bld) [Relative time] 1.2 {INR} High 0.9 - 1.1 [facility] Interpretation and review of laboratory results Abnormal [facility] PT Coag (PPP) [Time] 15.4 s High [facility] aPTT Coag (Bld) [Time] 29.5 s Normal 24.0-34.3 [facility] Comment on above: Performed By: #### I PB, MGO, HDLT #### [facility] (DEFAULT) [address] [place] [id number] INR Coag (PPP) [Relative time] 1.2 {INR} High 0.9-1.1 [facility] Comment on above: Performed By: #### I PB, MGO, HDLT #### [facility] (DEFAULT) [address] [place] [address] PT Coag (PPP) [Time] 15.4 s High 11.9-14.2 [facility] Comment on above: Performed By: #### I PB, MGO, HDLT #### [facility] (DEFAULT) [address] [place] [address]378 CBC AND ELECTRONIC DIFFon Abs Baso Auto < Normal 0.00-0.15 [facility] Comment on above: Performed By: #### I PB, MGO, HDLT #### [facility] (DEFAULT) [address] [place] [address] 44130 Basophils/100 WBC (Bld) 0.3 % Normal [facility] Comment on above: Performed By: #### I PB, MGO, HDLT #### [facility] (DEFAULT) [address] [address] 32234 DIFF STATUS Electronic Differential Normal [facility] Comment on above: Performed By: #### I PB, MGO, HDLT #### [facility] (DEFAULT) [address] [place] [address] 32260 Eosinophils (Bld) [#/Vol] 0.24 10*3/uL Normal 0.00-0.42 [facility] Comment on above: Performed By: #### I PB, MGO, HDLT #### [facility] (DEFAULT) [address] [place] [address] 27116 Eosinophils/100 WBC (Bld) 2.6 % Normal [facility] Comment on above: Performed By: #### I PB, MGO, HDLT #### [facility] (DEFAULT) [address] [place] [address] 69591 Hematocrit (Bld) [Volume fraction] 45.4 % High 34.9-44.3 [facility] Comment on above: Performed By: #### I PB, MGO, HDLT #### [facility] (DEFAULT) [address] [place] [address] 75392 Hemoglobin (Bld) [Mass/Vol] 15.1 g/dL Normal 11.4-15.2 [facility] Comment on above: Performed By: #### I PB, MGO, HDLT #### [facility] (DEFAULT) [address] [place] [address] 77691 Immature Grans % 0.5 % Normal [facility] Comment on above: Performed By: #### I PB, MGO, HDLT #### [facility] (DEFAULT) [address] [place] [address] 22655 Immature Grans Absolute 0.05 K/uL Normal <=0.08 [facility] Comment on above: Performed By: #### I PB, MGO, HDLT #### [facility] (DEFAULT) [address] [place] [address] 10097 Lymphocytes (Bld) [#/Vol] 2.89 10*3/uL Normal 1.16-3.51 [facility] Comment on above: Performed By: #### I PB, MGO, HDLT #### [facility] (DEFAULT) [address] [place] [address] 71974 Lymphocytes/100 WBC (Bld) 30.9 % Normal [facility] Comment on above: Performed By: #### I PB, MGO, HDLT #### [facility] (DEFAULT) [address] [place] [address] 11014 MCV (RBC) [Entitic vol] 92.1 fL Normal 79.6-97.7 [facility] Comment on above: Performed By: #### I PB, MGO, HDLT #### [facility] (DEFAULT) [address] [place] [address] 42790 Mean Cell Hgb 30.6 pg Normal 25.9-33.9 [facility] Comment on above: Performed By: #### I PB, MGO, HDLT #### [facility] (DEFAULT) [address] [place] [address] 66002 Mean Cell Hgb Conc 33.3 g/dL Normal 31.4-35.9 [facility] Comment on above: Performed By: #### I PB, MGO, HDLT #### [facility] (DEFAULT) [address] [place] [address] 32792 Monocytes (Bld) [#/Vol] 0.88 10*3/uL High 0.22-0.87 [facility] Comment on above: Performed By: #### I PB, MGO, HDLT #### [facility] (DEFAULT) [address] [place] [address] 64502 Monocytes/100 WBC (Bld) 9.4 % Normal [facility] Comment on above: Performed By: #### I PB, MGO, HDLT #### [facility] (DEFAULT) [address] [place] [address] 29271 Nucleated RBC 0.0 /100 WBC Normal <=0.2 [facility] Comment on above: Performed By: #### I PB, MGO, HDLT #### [facility] (DEFAULT) [address] [place] [address] 38562 Platelet mean volume (Bld) [Entitic vol] 10.0 fL Normal 8.5-12.2 [facility] Comment on above: Performed By: #### I PB, MGO, HDLT #### [facility] (DEFAULT) [address] [place] [address] 46119 Platelets (Bld) [#/Vol] 275 10*3/uL Normal 150-393 [facility] Comment on above: Performed By: #### I PB, MGO, HDLT #### [facility] (DEFAULT) [address] [place] [address] 64716 RBC (Bld) [#/Vol] 4.93 10*6/uL Normal 3.91-5.04 [facility] Comment on above: Performed By: #### I PB, MGO, HDLT #### [facility] (DEFAULT) [address] [place] [address] 37586 RBC Distribution 12.6 % Normal 10.8-14.9 [facility] Comment on above: Performed By: #### I PB, MGO, HDLT #### [facility] (DEFAULT) [address] [place] [address] 50076 Segs + Bands Auto 56.3 % Normal [facility] Comment on above: Performed By: #### I PB, MGO, HDLT #### [facility] (DEFAULT) [address] [place] [address] 06677 Segs + Bands,Absolute Auto 5.26 K/uL Normal 1.64-7.28 [facility] Comment on above: Performed By: #### I PB, MGO, HDLT #### [facility] (DEFAULT) [address] [place] [address] 41717 WBC (Bld) [#/Vol] 9.35 10*3/uL Normal 3.99-11.19 [facility] Comment on above: Performed By: #### I PB, MGO, HDLT #### [facility] (DEFAULT) [address] [place] [address] 92202 CHEM 6 (LYTES, BUN CREA)on 06-22-2023 Anion gap [Moles/Vol] 15 mmol/L Normal 7-17 [facility] Comment on above: Performed By: #### L [id number] #### [facility] (DEFAULT) [address] [place] [address] 31856 Chloride [Moles/Vol] 104 mmol/L Normal 98-108 [facility] Comment on above: Performed By: #### L [id number] #### [facility] (DEFAULT) [address] [place] [address] 45969 CO2 [Moles/Vol] 29 mmol/L Normal 21-31 [facility] Comment on above: Performed By: #### L [id number] #### [facility] (DEFAULT) [address] [place] [address] 65964 Creatinine [Mass/Vol] 0.93 mg/dL Normal 0.50-1.20 [facility] Comment on above: Performed By: #### L [id number] #### [facility] (DEFAULT) [address] [address] GFR/1.73 sq M.predicted among non-blacks MDRD (S/P/Bld) [Vol rate/Area] 64 mL/min/{1.73_m2} Normal >=60 [facility] Comment on above: Result Comment: Repo rted eGFR is based on the CKD-EPI 2020 equation using creatinine, age, and sex. Performed By: #### L [id number] #### [facility] (DEFAULT) [address] [place] [address] 96279 Potassium [Moles/Vol] 5.0 mmol/L Normal 3.5-5.0 [facility] Comment on above: Performed By: #### L [id number] #### [facility] (DEFAULT) [address] [place] [address] Sodium [Moles/Vol] 143 mmol/L Normal 135-145 [facility] Comment on above: Performed By: #### L AB980 #### [facility] (DEFAULT) [address] [address] Urea nitrogen [Mass/Vol] 19 mg/dL Normal 7-25 [facility] Comment on above: Performed By: #### L AB980 #### [facility] (DEFAULT) [address] [place] [address] Urea nitrogen/Creatinine [Mass ratio] 20 mg/mg Normal [facility] Comment on above: Performed By: #### L AB980 #### [facility] (DEFAULT) [address] [place] [address] CT CARDIAC PULMONARY VENOGRA [facility] 04-21-2024 CT CARDIAC PULMONARY VENOGRAM [facility] CT Report Name: ELIZABETH PERSAUD : 1945 Scan Date: 2024-04-21 16:07:58 Electronically signed by Roz Dixon 16:45:18 VITALS HEIGHT: 61 in (154.94 cm) WEIGHT: 129.00 lbs (58.51 kgs) BSA: 1.57 m^2 BMI: 24 kg/m^2 BP: 114 / 80 mmHg BASELINE HR: 105 BPM FINAL 78 y/o/f hx HFmrEF, HTN, 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 Mildly delayed EVITA contrast opacification. No LA/EVITA thrombus. STUDY QUALITY: Study quality is good. OTHER FINDINGS: Aortic calcifications. Small pulmonary nodules across both lobes <3 mm. PULMONARY VEIN LEFT ATRIAL APPENDAGE: No Thrombus LEFT SIDE MEASUREMENTS ------- COMMON DIMENSIONS: 2.6 cm COMMON DIMENSIONS (2): 1.7 cm RIGHT SIDE MEASUREMENTS ------- UPPER DIMENSIONS: 1.9 cm UPPER DIMENSIONS (2): 1.6 cm LOWER DIMENSIONS: 1.7 cm LOWER DIMENSIONS (2): 1.4 cm SCAN INFO TEST TYPE: Venogram SCANNER BANQUET HOUSEPERSON: Inhabi SCANNER MODEL: NAEOTOM Alpha DOSE REDUCTION ALGORITHM: Helical with dose modulation SCAN COVERAGE ZONE: Pulmonary Veins/EVITA EKG GATED: No GENERAL ------- CONTRAST AGENT CONTRAST AGENT USED?: Yes TYPE: Omnipaque 350 DOSE: 50 ml RATE: 4 ml/s ROUTE: IV BOLUS TECHNIQUE: Biphasic SCAN DELAY TIME METHOD: Bolus Track SERUM CREATININE: 0.87 mg/dL GFR: 67.28 ml/min/1.73m^2 CREATININE DATE: CT CONTRAST REACTION: None RADIATION DOSE DLP: 80 SETUP DATE OF EVENT: SCAN TYPE: Clinical PATIENT TYPE: Outpatient REASON(S) FOR SCAN: EP procedure planning REFERRING PHYSICIAN: Alli Ybarra ATTENDING PHYSICIAN: ROZ DIXON TECHNOLOGIST: Manuel Reid Patient Account [id number] CPT Codes 02719 ICD10 Codes I48.19 Report generated by Precession, a product of [employer] Normal [facility] Chest>Heart.atrium.left+Pulm onary veins CT angiogram and 3D reconstruction W contrast Kvng 04-21-2024 [facility] CT Report Name: ELIZABETH PERSAUD : 1945 Scan Date: 2024-04-21 16:07:58 Electronically signed by Roz Dixon 16:45:18 VITALS HEIGHT: 61 in (154.94 cm) WEIGHT: 129.00 lbs (58.51 kgs) BSA: 1.57 m^2 BMI: 24 kg/m^2 BP: 114 / 80 mmHg BASELINE HR: 105 BPM FINAL IMPRESSION 78 y/o/f hx HFmrEF, HTN, 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 Mildly delayed EVITA contrast opacification. No LA/EVITA thrombus. STUDY QUALITY: Study quality is good. OTHER FINDINGS: Aortic calcifications. Small pulmonary nodules across both lobes <3 mm. PULMONARY VEIN LEFT ATRIAL APPENDAGE: No Thrombus LEFT SIDE MEASUREMENTS ------- COMMON DIMENSIONS: 2.6 cm COMMON DIMENSIONS (2): 1.7 cm RIGHT SIDE MEASUREMENTS ------- UPPER DIMENSIONS: 1.9 cm UPPER DIMENSIONS (2): 1.6 cm LOWER DIMENSIONS: 1.7 cm LOWER DIMENSIONS (2): 1.4 cm SCAN INFO TEST TYPE: Venogram SCANNER BANQUET HOUSEPERSON: Inhabi SCANNER MODEL: NAEOTOM Alpha DOSE REDUCTION ALGORITHM: Helical with dose modulation SCAN COVERAGE ZONE: Pulmonary Veins/EVITA EKG GATED: No GENERAL ------- CONTRAST AGENT CONTRAST AGENT USED?: Yes TYPE: Omnipaque 350 DOSE: 50 ml RATE: 4 ml/s ROUTE: IV BOLUS TECHNIQUE: Biphasic SCAN DELAY TIME METHOD: Bolus Track SERUM CREATININE: 0.87 mg/dL GFR: 67.28 ml/min/1.73m^2 CREATININE DATE: CT CONTRAST REACTION: None RADIATION DOSE DLP: 80 SETUP DATE OF EVENT: SCAN TYPE: Clinical PATIENT TYPE: Outpatient REASON(S) FOR SCAN: EP procedure planning REFERRING PHYSICIAN: 1) Alli Hernandez ATTENDING PHYSICIAN: ROZ DIXON TECHNOLOGIST: Manuel Reid Patient Account [id number] CPT Codes 90784 ICD10 Codes I48.19 Report generated by [employer], a product of [employer] CARDIOLOGY Roz Dixon, DO - 04/21/2024 [facility] CT Report Name: ELIZABETH PERSAUD : 1945 Scan Date: 2024-04-21 16:07:58 Electronically signed by Roz Dixon 16:45:18 VITALS ==== HEIGHT: 61 in (154.94 cm) WEIGHT: 129.00 lbs (58.51 kgs) BSA: 1.57 m^2 BMI: 24 kg/m^2 BP: 114 / 80 mmHg BASELINE HR: 105 BPM FINAL IMPRESSION ==== 78 y/o/f hx HFmrEF, HTN, 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 Mildly delayed EVITA contrast opacification. No LA/EVITA thrombus. STUDY QUALITY: Study quality is good. OTHER FINDINGS: Aortic calcifications. Small pulmonary nodules across both lobes <3 mm. PULMONARY VEIN ==== LEFT ATRIAL APPENDAGE: No Thrombus LEFT SIDE MEASUREMENTS COMMON DIMENSIONS: 2.6 cm COMMON DIMENSIONS (2): 1.7 cm RIGHT SIDE MEASUREMENTS UPPER DIMENSIONS: 1.9 cm UPPER DIMENSIONS (2): 1.6 cm LOWER DIMENSIONS: 1.7 cm LOWER DIMENSIONS (2): 1.4 cm SCAN INFO ==== TEST TYPE: Venogram SCANNER BANQUET HOUSEPERSON: Inhabi SCANNER MODEL: NAEOTOM Alpha DOSE REDUCTION ALGORITHM: Helical with dose modulation SCAN COVERAGE ZONE: Pulmonary Veins/EVITA EKG GATED: No GENERAL CONTRAST AGENT CONTRAST AGENT USED?: Yes TYPE: Omnipaque 350 DOSE: 50 ml RATE: 4 ml/s ROUTE: IV BOLUS TECHNIQUE: Biphasic SCAN DELAY TIME METHOD: Bolus Track SERUM CREATININE: 0.87 mg/dL GFR: 67.28 ml/min/1.73m^2 CREATININE DATE: CT CONTRAST REACTION: None RADIATION DOSE DLP: 80 SETUP DATE OF EVENT: SCAN TYPE: Clinical PATIENT TYPE: Outpatient REASON(S) FOR SCAN: EP procedure planning REFERRING PHYSICIAN: Alli Ybarra ATTENDING PHYSICIAN: ROZ DIXON TECHNOLOGIST: Manuel Reid ==== Patient Account [id number] CPT Codes 74358 ICD10 Codes I48.19 Report generated by Pre[employer], a product of [employer] [facility] Radiology Study observation (narrative) [facility] Chest>Heart.atrium.left+Pulm onary veins CT angiogram and 3D reconstruction W contrast IVOrdered By: Roz Dixon on 04-21-2024 [facility] Work Phone: 12 Lead EKG performed by [facility] on 04-19-2024 12 Lead EKG performed by [facility] [address] [place] [address] 12 Lead EKG performed by [facility] 04/19/24 0852 MR#: [id number] Acct: [id number] Name: PERSAUDGIBSONNay Steen Rep #: [id number] : 1945 78 From: Nagi Freeman FORMULATOR FORMULATOR-C Attending Dr: PAGE CaldwellC Status: DEP AMB Ordering Dr: Nagi Freeman NP FORMULATOR-C Date: 04/19/24 Location: [facility] Sex: F C Admitted: BMS/12 Lead EKG performed by [facility] ECG Report Interpretation S inus Rhythm - frequent ectopic ventricular beat s # VECs = 2-RSR(V1) -nondiagnostic. - T-abnormality - Anterior and inferior ischemia. ABNORMAL Electronically signed on 04/27/2024 at 08:36 by Fred,Maxim [employer] Version [id number] 04/27/2439 Date Nagi Freeman FORMULATOR FORMULATOR-C CC: Dr. Minerva Shaver MD Date Dictated: 04/19/24851 Date Transcribed: 04/19/24851 [employer] Certified Network Associate: LENARD Signed Normal [facility] Absolute neutrophil countOrd ered By: Nagi Freeman on 04-19-2024 Neutrophils (Bld) [#/Vol] 4.8 10*3/uL 2.0-7.[address] [facility] Albumin to globulin ratioOrd ered By: Nagi Freeman on 04-19-2024 Albumin/Globulin [Mass ratio] 1.0 {ratio} 0.9-2.[address] [facility] Basophil percentageOrdered B y: Nagi Freeman on 04-19-2024 Basophils/100 WBC (Bld) 0.4 % 0-[address] [facility] Bilirubin, totalOrdered By: Nagi Freeman on 04-19-2024 Bilirubin [Mass/Vol] 0.70 mg/dL 0.20-1.00 [facility] Comment on above: For patients on eltr ombopag therapy, use of Dimension [place] TBIL is not recommended. Blood urea nitrogen (BUN)/cr eatinine ratioOrdered By: Nagi Freeman on 04-19-2024 Urea nitrogen/Creatinine [Mass ratio] 27.9 mg/mg High 10-[address] [facility] CBC W/Diff, Automatedon 12-0 Absolute Lymph 2.38 X10 3/uL Normal 0.83-4.[address] [facility] Comment on above: Performed By: #### L 100.0100, L500.4050, L501.5200 #### [facility] [address] [place], [address] Absolute Neut 4.8 X10 3/uL Normal 2.0-7.[address] [facility] Comment on above: Performed By: #### L 100.0100, L500.4050, L501.5200 #### [facility] [address] [place], [address] Basophils/100 WBC (Bld) 0.4 % Normal 0-[address] [facility] Comment on above: Performed By: #### L 100.0100, L500.4050, L501.5200 #### [facility] [address] [place], [address] Eosinophils/100 WBC (Bld) 3.1 % Normal 0-[address] [facility] Comment on above: Performed By: #### L 100.0100, L500.4050, L501.5200 #### [facility] [address] [place], [address] Erythrocyte distribution width (RBC) [Ratio] 12.4 % Normal 11.6-14.[address] [facility] Comment on above: Performed By: #### L 100.0100, L500.4050, L501.5200 #### [facility] [address] [place], [address] Hematocrit (Bld) [Volume fraction] 42.0 % Normal 37-[address] [facility] Comment on above: Performed By: #### L 100.0100, L500.4050, L501.5200 #### [facility] [address] [place], [address] Hemoglobin (Bld) [Mass/Vol] 14.0 g/dL Normal 12.0-15.[address] [facility] Comment on above: Performed By: #### L 100.0100, L500.4050, L501.5200 #### [facility] [address] [place], [address] IG% 0.400 Normal 0.0-0.[address] [facility] Comment on above: Result Comment: IG% - Immature Granulocytes (promyelocytes, myelocytes and metamyelocytes) > 1% indicates that a LEFT SHIFT is Present. Performed By: #### L 100.0100, L500.4050, L501.5200 #### [facility] [address] [place], [address] Lymphocytes/100 WBC (Bld) 28.7 % Normal 19-[address] [facility] Comment on above: Performed By: #### L 100.0100, L500.4050, L501.5200 #### [facility] [address] [place], [address] MCH (RBC) [Entitic mass] 30.6 pg Normal 27.0-32.[address] [facility] Comment on above: Performed By: #### L 100.0100, L500.4050, L501.5200 #### [facility] [address] [place], [address] MCHC (RBC) [Mass/Vol] 33.3 g/dL Normal 32-36 [facility] Comment on above: Performed By: #### L 100.0100, L500.4050, L501.5200 #### [facility] [address] [place], [address] MCV (RBC) [Entitic vol] 91.9 fL Normal 81-[address] [facility] Comment on above: Performed By: #### L 100.0100, L500.4050, L501.5200 #### [facility] [address] [place], [address] Monocytes/100 WBC (Bld) 10.0 % Normal 0-[address] [facility] Comment on above: Performed By: #### L 100.0100, L500.4050, L501.5200 #### [facility] [address] [place], [address] Neutrophils/100 WBC (Bld) 57.4 % Normal 47-[address] [facility] Comment on above: Performed By: #### L 100.0100, L500.4050, L501.5200 #### [facility] [address] [place], [address] Nucleated RBC (Bld) [#/Vol] 0 10*3/uL Normal 0-[address] [facility] Comment on above: Performed By: #### L 100.0100, L500.4050, L501.5200 #### [facility] [address] [place], [address] Platelet mean volume (Bld) [Entitic vol] 9.7 fL Normal 6.2-12.[address] [facility] Comment on above: Performed By: #### L 100.0100, L500.4050, L501.5200 #### [facility] [address] [place], [address] Platelets (Bld) [#/Vol] 278 10*3/uL Normal 150-[address] [facility] Comment on above: Performed By: #### L 100.0100, L500.4050, L501.5200 #### [facility] [address] [place], [address] RBC (Bld) [#/Vol] 4.57 10*6/uL Normal 4.2-5.4 [facility] Comment on above: Performed By: #### L 100.0100, L500.4050, L501.5200 #### [facility] [address] [place], [address] RDW SD 41.1 fl Normal 35.1-43.[address] [facility] Comment on above: Performed By: #### L 100.0100, L500.4050, L501.5200 #### [facility] [address] [place], [address] WBC (Bld) [#/Vol] 8.3 10*3/uL Normal 4.4-11.0 [facility] Comment on above: Performed By: #### L 100.0100, L500.4050, L501.5200 #### [facility] [address] [place], [address] Carbon dioxide measurementOr dered By: Nagi Freeman on 04-19-2024 CO2 [Moles/Vol] 28.0 mmol/L 21.0-32.[address] [facility] Cardiology Visit Reporton Cardiology Visit Report [facility] [address] [place] [address] OFFICE VISIT Date of Service: 04/19/24 MR#: [id number] Acct: [id number] Name: ELIZABETH PERSAUD Rep #: [id number] : 1945 Provider: DANYA dalal Age/Sex: 78/F Location: [facility] Status: Signed HPI HPI History of Present Illness Details: ELIZABETH PERSAUD, is a 78 F who presents to the office for a cardiovascular follow up visit. She has a history of previous atrial fibrillation for which she was hospitalized and underwent a ARIS guided cardioversion.???Patient presented to her PCP in May 2022 with complaints of shortness of breath with minimal exertion and leg weakness. She states her heart rates have been in the 90s while working, and increases to 140 on her recumbent exercise bike. At some point her flecainide had gotten discontinued and she was placed on amiodarone for her atrial fibrillation. She states that she is allergic to amiodarone due to worsening dyspnea on exertion. This was discontinued at her last office visit, and she was placed back on flecainide. She had been scheduled for an outpatient cardioversion on 08/06/2022, but had successfully cardioverted on her own. Patient presented to the emergency room on 08/08/2022 with strokelike symptoms. Patient presented because of facial droop, altered sensation and left sided weakness. She had not missed any doses of her Eliquis. Her heart rate was noted to be low at 38. Her metoprolol and Flecainide were placed on hold at that time. Her heart rate did improve. Her CT of the head without contrast revealed no evidence of subdural, epidural, subarachnoid hemorrhage or intraparenchymal hemorrhage. There was no obvious stroke noted. Her MRI of the brain was also negative. 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 She was later discharged from the hospital and instructed to follow with neurology for suspected stroke due to symptomatology. She states she is scheduled to see vascular- Dr. Persaud at [facility] next week. She was seen in the Emergency Room on 12/31/2022 for shortness of breath. Per EMS report she was noted be 80% on room air and placed on CPAP therapy. She received IV Lasix. Her BNP, 394.7, was elevated and her troponin was normal. Her ECG showed sinus rhythm. She was admitted and treated for respiratory failure secondary to acute on chronic congestive heart failure and suspected pneumonia. She underwent an echocardiogram on 12/31/2022 that showed ejection fraction of 60% and moderately enlarged left atrium. She was evaluated with EP at [facility] with plans to undergo ablation and Tikosyn therapy. Her flecainide was discontinued. She presented [facility] emergency department for worsening shortness of breath despite diuretic adjustment. She was transferred to [facility] for further evaluation due to upcoming ablation procedure. She underwent cardioversion and started on Tikosyn therapy. She returned to atrial fibrillation the following day and underwent a second cardioversion. After her sixth dose of Tikosyn her Qtc was noted be 500. To assist with sinus bradycardia, her metoprolol is reduced to 25 mg p.o. daily. She was discharged for outpatient follow-up with plans to return to [facility] on 04/22/2024 for outpatient ablation. She denies chest, arm, jaw, or neck discomfort. She acknowledges episode of palpitation. She describes as fast and it resolved on its own quickly. She denies bilateral lower extreme edema. She continues to shortness with activity, though this is improving. She no longer expresses concerns regarding Ortho pi???a. She denies shortness breath at rest. She denies lightheadedness, dizziness, near-syncope, or syncope. She acknowledges fatigue and weakness that is improving since cardioversion at [facility]. 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 Is patient in pain?: No Allergies etodolac Allergy (Intermediate, Verified 04/19/24 08:59) Other diltiazem HCl (From Cardizem) Allergy (Verified 04/19/24 08:59) Swelling of face and neck naproxen Allergy (Verified 04/19/24 08:59) Swelling (whole body) prednisone Allergy (Verified 04/19/24 08:59) Other amiodarone Adverse Reaction (Severe, Verified 04/19/24 08:59) Severe dyspnea after taking PO Amiodarone adhesive Adverse Reaction (Verified 04/19/24 08:59) Rash albuterol Adverse Reaction (Verified 04/19/24 08:59) Other codeine Adverse Reaction (Verified 04/19/24 08:59) Vomiting hydrocodone bitartrate (From Vicodin) Adverse Reaction (Verified 04/19/24 08:59) Vomiting morphine Adver (more content not included)... Normal [facility] Chloride measurementOrdered By: Nagi Freeman on 04-19-2024 Chloride [Moles/Vol] 106 mmol/L 98-107 [facility] Comprehensive Metabolic Prof william 04-19-2024 Albumin [Mass/Vol] 3.8 g/dL Normal 3.2-5.0 [facility] Comment on above: Performed By: #### L 100.0100, L500.4050, L501.5200 ####[facility] [address] [place], [address] Albumin/Globulin [Mass ratio] 1.0 {ratio} Normal 0.9-2.[address] [facility] Comment on above: Performed By: #### L 100.0100, L500.4050, L501.5200 ####[facility] [address] [place], [address] ALK P 108 U/L Normal 45-[address] [facility] Comment on above: Performed By: #### L 100.0100, L500.4050, L501.5200 ####[facility] [address] [place], [address] ALT [Catalytic activity/Vol] 32 U/L Normal 13-[address] [facility] Comment on above: Performed By: #### L 100.0100, L500.4050, L501.5200 ####[facility] [address] [place], [address] AST [Catalytic activity/Vol] 22 U/L Normal 15-[address] [facility] Comment on above: Performed By: #### L 100.0100, L500.4050, L501.5200 ####[facility] [address] [place], [address] Bilirubin [Mass/Vol] 0.70 mg/dL Normal 0.20-1.00 [facility] Comment on above: Result Comment: For patients on eltrombopag therapy, use of Dimension [place] TBIL is not recommended. Performed By: #### L 100.0100, L500.4050, L501.5200 ####[facility] [address] [place], [address] BUN/CRE 27.9 RATIO High 10-[address] [facility] Comment on above: Performed By: #### L 100.0100, L500.4050, L501.5200 ####[facility] [address] [place], [address] CA,Total 10.0 mg/dL Normal 8.5-10.[address] [facility] Comment on above: Performed By: #### L 100.0100, L500.4050, L501.5200 ####[facility] [address] [place], [address] Chloride [Moles/Vol] 106 mmol/L Normal 98-107 [facility] Comment on above: Performed By: #### L 100.0100, L500.4050, L501.5200 ####[facility] [address] [place], [address] CO2 [Moles/Vol] 28.0 mmol/L Normal 21.0-32.[address] [facility] Comment on above: Performed By: #### L 100.0100, L500.4050, L501.5200 ####[facility] [address] [place], [address] Creatinine [Mass/Vol] 1.04 mg/dL High 0.55-1.02 [facility] Comment on above: Result Comment: The validity of the calculated GFR GFRAA in patients over 70 years has not been determined. Clinical correlation is essential. Performed By: #### L 100.0100, L500.4050, L501.5200 ####[facility] [address] [place], [address] EST GFR - AA 66 mL/min Normal >[address] [facility] Comment on above: Result Comment: Afri can Fijian GFR Calc Performed By: #### L 100.0100, L500.4050, L501.5200 ####[facility] [address] [place], [address] GAP 5 Normal 5-[address] [facility] Comment on above: Performed By: #### L 100.0100, L500.4050, L501.5200 ####[facility] [address] [place], [address] GFR/1.73 sq M.predicted among non-blacks MDRD (S/P/Bld) [Vol rate/Area] 55 mL/min/{1.73_m2} Low >[address] [facility] Comment on above: Result Comment: Non- GFR Calc Performed By: #### L 100.0100, L500.4050, L501.5200 ####[facility] [address] [place], [address] Globulin (S) [Mass/Vol] 3.7 g/dL Normal 2.2-4.[address] [facility] Comment on above: Performed By: #### L 100.0100, L500.4050, L501.5200 ####[facility] [address] [place], [address] Glucose [Mass/Vol] 85 mg/dL Normal 74-106 [facility] Comment on above: Performed By: #### L 100.0100, L500.4050, L501.5200 ####[facility] [address] [place], [address] Potassium [Moles/Vol] 4.0 mmol/L Normal 3.5-5.1 [facility] Comment on above: Performed By: #### L 100.0100, L500.4050, L501.5200 ####[facility] [address] [place], [address] Sodium [Moles/Vol] 138 mmol/L Normal 136-145 [facility] Comment on above: Performed By: #### L 100.0100, L500.4050, L501.5200 ####[facility] [address] [place], [address] T PROT 7.5 g/dL Normal 6.4-8.[address] [facility] Comment on above: Performed By: #### L 100.0100, L500.4050, L501.5200 ####[facility] [address] [place], [address] Urea nitrogen [Mass/Vol] 29 mg/dL High 7-[address] [facility] Comment on above: Performed By: #### L 100.0100, L500.4050, L501.5200 ####[facility] [address] [place], [address] Eosinophil percentageOrdered By: Nagi Freeman on 04-19-2024 Eosinophils/100 WBC (Bld) 3.1 % 0-[address] [facility] Erythrocyte distribution wid th ratioOrdered By: Nagi Freeman on 04-19-2024 Erythrocyte distribution width (RBC) [Ratio] 12.4 % 11.6-14.[address] [facility] Erythrocyte distribution wid th standard deviationOrdered By: Nagi Freeman on 04-19-2024 Erythrocyte distribution width (RBC) [Entitic vol] 41.1 fL 35.1-43.[address] [facility] Estimated glomerular filtrat ion rate (GFR) AmericanOrdered By: Nagi Freeman on 04-19-2024 Estimated GFR (MDRD) Amer 66 mL/min >[address] [facility] Comment on above: GFR Calc Glomerular filtration rate ( GFR) estimationOrdered By: Nagi Freeman on 04-19-2024 Estimated GFR (MDRD) Non-Af Amer 55 mL/min Low >[address] [facility] Comment on above: Non- GFR Calc Glucose measurementOrdered B y: Nagi Freeman on 04-19-2024 Glucose [Mass/Vol] 85 mg/dL 74-106 [facility] Hematocrit Auto (Bld) [Volum e fraction]Ordered By: Nagi Freeman on 04-19-2024 Hematocrit (Bld) [Volume fraction] 42.0 % 37-[address] [facility] Hemoglobin measurementOrdere d By: Nagi Freeman on 04-19-2024 Hemoglobin (Bld) [Mass/Vol] 14.0 g/dL 12.0-15.[address] [facility] Immature granulocytes/100 WB C Auto (Bld)Ordered By: Nagi Freeman on 04-19-2024 Immature granulocytes/100 WBC (Bld) 0.400 % 0.0-0.[address] [facility] Comment on above: IG% - Immature Granu locytes (promyelocytes, myelocytes and metamyelocytes) > 1% indicates that a LEFT SHIFT is Present. Laboratory - Chemistry and C hemistry - challengeOrdered By: Nagi Freeman on 04-19-2024 AST [Catalytic activity/Vol] 22 U/L 15-[address] [facility] Lymphocytes Auto (Unsp spec) [#/Vol]Ordered By: Nagi Freeman on 04-19-2024 Lymphocytes (Bld) [#/Vol] 2.38 10*3/uL 0.83-4.[address] [facility] Lymphocytes/100 WBC Auto (Un sp spec)Ordered By: Nagi Freeman on 04-19-2024 Lymphocytes/100 WBC (Bld) 28.7 % 19-[address] [facility] MCV (mean corpuscular volume ) determinationOrdered By: Nagi Freeman on 04-19-2024 MCV (RBC) [Entitic vol] 91.9 fL 81-[address] [facility] Magnesiumon 04-19-2024 Magnesium [Mass/Vol] 2.3 mg/dL Normal 1.6-2.6 [facility] Comment on above: Performed By: #### L 100.0100, L500.4050, L501.5200 ####[facility] [id number] [place], [address] Magnesium measurementOrdered By: Nagi Freeman on 04-19-2024 Magnesium [Mass/Vol] 2.3 mg/dL 1.6-2.6 [facility] Mean corpuscular hemoglobin (MCH) determinationOrdered By: Nagi Freeman on 04-19-2024 MCH (RBC) [Entitic mass] 30.6 pg 27.0-32.[address] [facility] Mean corpuscular hemoglobin concentration (MCHC) determinationOrdered By: Nagi Freeman on 04-19-2024 MCHC (RBC) [Mass/Vol] 33.3 g/dL 32-36 [facility] Mean platelet volume determi nationOrdered By: Nagi Freeman on 04-19-2024 Platelet mean volume (Bld) [Entitic vol] 9.7 fL 6.2-12.[address] [facility] Monocyte percentageOrdered B y: Nagi Freeman on 12-09-2024 Monocytes/100 WBC (Bld) 10.0 % 0-[address] [facility] Neutrophil percentageOrdered By: Nagi Freeman on 04-19-2024 Neutrophils/100 WBC (Bld) 57.4 % 47-[address] [facility] Nucleated red blood cell per centageOrdered By: Nagi Freeman on 04-19-2024 Nucleated RBC/100 WBC (Bld) [Ratio] 0 % 0-[address] [facility] Platelet countOrdered By: Maya Freeman on 04-19-2024 Platelets (Bld) [#/Vol] 278 10*3/uL 150-[address] [facility] Potassium measurementOrdered By: Nagi Freeman on 04-19-2024 Potassium [Moles/Vol] 4.0 mmol/L 3.5-5.1 [facility] RBC Auto (Bld) [#/Vol]Ordere d By: Nagi Freeman on 04-19-2024 RBC (Bld) [#/Vol] 4.57 10*6/uL 4.2-5.4 [facility] Serum anion gap measurementO rdered By: Nagi Freeman on 04-19-2024 Anion gap [Moles/Vol] 5 mmol/L 5-15 [facility] Serum globulin measurementOr dered By: Nagi Freeman on 04-19-2024 Globulin (S) [Mass/Vol] 3.7 g/dL 2.2-4.[address] [facility] Serum or plasma alanine snyder otransferase (ALT) measurementOrdered By: Nagi Freeman on 04-19-2024 ALT [Catalytic activity/Vol] 32 U/L 13-[address] [facility] Serum or plasma albumin michelle urement (mass/volume)Ordered By: Nagi Freeman on 04-19-2024 Albumin [Mass/Vol] 3.8 g/dL 3.2-5.0 [facility] Serum or plasma alkaline olga sphatase measurementOrdered By: Nagi Freeman on 04-19-2024 ALP [Catalytic activity/Vol] 108 U/L 45-[address] [facility] Serum or plasma calcium michelle urement (mass/volume)Ordered By: Nagi Freeman on 04-19-2024 Calcium [Mass/Vol] 10.0 mg/dL 8.5-10.1 [facility] Serum or plasma creatinine m easurement (mass/volume)Ordered By: Nagi Freeman on 04-19-2024 Creatinine [Mass/Vol] 1.04 mg/dL High 0.55-1.02 [facility] Comment on above: The validity of the calculated GFR & GFRAA in patients over 70 years has not been determined. Clinical correlation is essential. Serum or plasma urea nitroge n measurement (mass/volume)Ordered By: Nagi Freeman on 04-19-2024 Urea nitrogen [Mass/Vol] 29 mg/dL High 7-[address] [facility] Sodium levelOrdered By: Nagi Freeman on 04-19-2024 Sodium [Moles/Vol] 138 mmol/L 136-145 [facility] Total proteinOrdered By: Reinaldo Freeman on 04-19-2024 Protein [Mass/Vol] 7.5 g/dL 6.4-8.2 [facility] White blood cell (WBC) count Ordered By: Nagi Freeman on 04-19-2024 WBC (Bld) [#/Vol] 8.3 10*3/uL 4.4-11.0 [facility] CARDIAC RHYTHM (SCANNED)on 1 06-18-2023 [facility] CBC AND ELECTRONIC DIFFon Basophils (Bld) [#/Vol] K/uL 0.00 - 0.15 K/uL [facility] Basophils/100 WBC (Bld) 0.3 % [facility] Differential cell count method Nom (Bld) Electronic Differential O [facility] Eosinophils (Bld) [#/Vol] 0.28 10*3/uL 0.00 - 0.42 K/uL [facility] Eosinophils/100 WBC (Bld) 3.2 % [facility] Erythrocyte distribution width (RBC) [Ratio] 12.7 % 10.8 - 14.9 % [facility] Hematocrit (Bld) [Volume fraction] 39.1 % 34.9 - 44.3 % [facility] Hemoglobin (Bld) [Mass/Vol] 13.0 g/dL 11.4 - 15.2 g/dL [facility] Immature granulocytes (Bld) [#/Vol] 0.06 10*3/uL NINF - 0.08 K/uL [facility] Immature granulocytes/100 WBC (Bld) 0.7 % [facility] Lymphocytes (Bld) [#/Vol] 2.85 10*3/uL 1.16 - 3.51 K/uL [facility] Lymphocytes/100 WBC (Bld) 32.2 % [facility] MCH (RBC) [Entitic mass] 30.6 pg 25.9 - 33.9 pg [facility] MCHC (RBC) [Mass/Vol] 33.2 g/dL 31.4 - 35.9 g/dL [facility] MCV (RBC) [Entitic vol] 92.0 fL 79.6 - 97.7 fL [facility] Monocytes (Bld) [#/Vol] 0.72 10*3/uL 0.22 - 0.87 K/uL [facility] Monocytes/100 WBC (Bld) 8.1 % [facility] Neutrophils (Bld) [#/Vol] 4.92 10*3/uL 1.64 - 7.28 K/uL [facility] Nucleated RBC/100 WBC (Bld) [Ratio] 0.0 % NINF [facility] Platelet mean volume (Bld) [Entitic vol] 10.0 fL 8.5 - 12.2 fL [facility] Platelets (Bld) [#/Vol] 261 10*3/uL 150 - 393 K/uL [facility] RBC (Bld) [#/Vol] 4.25 10*6/uL [facility] Segmented neutrophils/100 WBC (Bld) 55.5 % [facility] WBC (Bld) [#/Vol] 8.86 10*3/uL 3.99 - 11.19 K/uL [facility] Abs Baso Auto < Normal 0.00-0.15 [facility] Comment on above: Performed By: #### I PB, MGO, HDLT #### [facility] (DEFAULT) [address] [place] [address] Basophils/100 WBC (Bld) 0.3 % Normal [facility] Comment on above: Performed By: #### I PB, MGO, HDLT #### [facility] (DEFAULT) [address] [place] [address] 28981 DIFF STATUS Electronic Differential Normal [facility] Comment on above: Performed By: #### I PB, MGO, HDLT #### [facility] (DEFAULT) [address] [place] [address] 14234 Eosinophils (Bld) [#/Vol] 0.28 10*3/uL Normal 0.00-0.42 [facility] Comment on above: Performed By: #### I PB, MGO, HDLT #### [facility] (DEFAULT) [address] [place] [address] 22851 Eosinophils/100 WBC (Bld) 3.2 % Normal [facility] Comment on above: Performed By: #### I PB, MGO, HDLT #### [facility] (DEFAULT) [address] [place] [address] 48752 Hematocrit (Bld) [Volume fraction] 39.1 % Normal 34.9-44.3 [facility] Comment on above: Performed By: #### I PB, MGO, HDLT #### [facility] (DEFAULT) [address] [place] [address] 12550 Hemoglobin (Bld) [Mass/Vol] 13.0 g/dL Normal 11.4-15.2 [facility] Comment on above: Performed By: #### I PB, MGO, HDLT #### [facility] (DEFAULT) [address] [place] [address] 93994 Immature Grans % 0.7 % Normal [facility] Comment on above: Performed By: #### I PB, MGO, HDLT #### [facility] (DEFAULT) [address] [place] [address] 69208 Immature Grans Absolute 0.06 K/uL Normal <=0.08 [facility] Comment on above: Performed By: #### I PB, MGO, HDLT #### [facility] (DEFAULT) [address] [place] [address] 44923 Lymphocytes (Bld) [#/Vol] 2.85 10*3/uL Normal 1.16-3.51 [facility] Comment on above: Performed By: #### I PB, MGO, HDLT #### [facility] (DEFAULT) [address] [place] [address] 64332 Lymphocytes/100 WBC (Bld) 32.2 % Normal [facility] Comment on above: Performed By: #### I PB, MGO, HDLT #### [facility] (DEFAULT) [address] [place] [address] 97163 MCV (RBC) [Entitic vol] 92.0 fL Normal 79.6-97.7 [facility] Comment on above: Performed By: #### I PB, MGO, HDLT #### [facility] (DEFAULT) [address] [place] [address] 24175 Mean Cell Hgb 30.6 pg Normal 25.9-33.9 [facility] Comment on above: Performed By: #### I PB, MGO, HDLT #### [facility] (DEFAULT) [address] [place] [address] 29738 Mean Cell Hgb Conc 33.2 g/dL Normal 31.4-35.9 [facility] Comment on above: Performed By: #### I PB, MGO, HDLT #### [facility] (DEFAULT) [address] [place] [address] 85591 Monocytes (Bld) [#/Vol] 0.72 10*3/uL Normal 0.22-0.87 [facility] Comment on above: Performed By: #### I PB, MGO, HDLT #### [facility] (DEFAULT) [address] [place] [address] 17922 Monocytes/100 WBC (Bld) 8.1 % Normal [facility] Comment on above: Performed By: #### I PB, MGO, HDLT #### [facility] (DEFAULT) [address] [place] [address] 68795 Nucleated RBC 0.0 /100 WBC Normal <=0.2 [facility] Comment on above: Performed By: #### I PB, MGO, HDLT #### [facility] (DEFAULT) [address] [place] [address] 49242 Platelet mean volume (Bld) [Entitic vol] 10.0 fL Normal 8.5-12.2 [facility] Comment on above: Performed By: #### I PB, MGO, HDLT #### [facility] (DEFAULT) [address] [place] [address] 72601 Platelets (Bld) [#/Vol] 261 10*3/uL Normal 150-393 [facility] Comment on above: Performed By: #### I PB, MGO, HDLT #### [facility] (DEFAULT) [address] [place] [address] 21976 RBC (Bld) [#/Vol] 4.25 10*6/uL Normal 3.91-5.04 [facility] Comment on above: Performed By: #### I PB, MGO, HDLT #### [facility] (DEFAULT) [address] [place] [address] 56247 RBC Distribution 12.7 % Normal 10.8-14.9 [facility] Comment on above: Performed By: #### I PB, MGO, HDLT #### [facility] (DEFAULT) [address] [place] [address] 51665 Segs + Bands Auto 55.5 % Normal [facility] Comment on above: Performed By: #### I PB, MGO, HDLT #### [facility] (DEFAULT) [address] [place] [address] 17320 Segs + Bands,Absolute Auto 4.92 K/uL Normal 1.64-7.28 [facility] Comment on above: Performed By: #### I PB, MGO, HDLT #### [facility] (DEFAULT) [address] [place] [address] WBC (Bld) [#/Vol] 8.86 10*3/uL Normal 3.99-11.19 [facility] Comment on above: Performed By: #### I PB, MGO, HDLT #### [facility] (DEFAULT) [address] [place] [address] CHEM 7 (LYTES,BUN,CREA,GLUC) on 04-17-2024 Anion gap [Moles/Vol] 13 mmol/L 7 - 17 mmol/L [facility] Chloride [Moles/Vol] 101 mmol/L 98 - 10 8 mmol/L [facility] CO2 [Moles/Vol] 30 mmol/L 21 - 31 mmol/L [facility] Creatinine [Mass/Vol] 0.87 mg/dL 0.50 - 1.20 mg/dL [facility] eGFR, CKD-EPI, Female 71 - PINF [facility] Comment on above: Reported eGFR is bas ed on the CKD-EPI 2020 equation using creatinine, age, and sex. Glucose [Mass/Vol] 95 mg/dL 70 - 99 mg/dL [facility] Interpretation and review of laboratory results Abnormal [facility] Osmolality Calc [Osmolality] 298 [facility] Potassium [Moles/Vol] 4.0 mmol/L 3.5 - 5.0 mmol/L [facility] Sodium [Moles/Vol] 140 mmol/L 135 - 145 mmol/L [facility] Urea nitrogen [Mass/Vol] 28 mg/dL High 7 - 25 mg/dL [facility] Urea nitrogen/Creatinine [Mass ratio] 32 mg/mg [facility] Anion gap [Moles/Vol] 13 mmol/L Normal 7-17 [facility] Comment on above: Performed By: #### I PB, MGO, HDLT #### [facility] (DEFAULT) [address] [place] [address] Chloride [Moles/Vol] 101 mmol/L Normal 98-108 [facility] Comment on above: Performed By: #### I ABRIL ANDREA HDLT #### [facility] (DEFAULT) [address] [place] [address] 93579 CO2 [Moles/Vol] 30 mmol/L Normal 21-31 [facility] Comment on above: Performed By: #### I ABRIL ANDREA HDLT #### [facility] (DEFAULT) [address] [place] [address] 17409 Creatinine [Mass/Vol] 0.87 mg/dL Normal 0.50-1.20 [facility] Comment on above: Performed By: #### ABRIL SIERRA HDLT #### [facility] (DEFAULT) [address] [place] [address] 71933 GFR/1.73 sq M.predicted among non-blacks MDRD (S/P/Bld) [Vol rate/Area] 69 mL/min/{1.73_m2} Normal >=60 [facility] Comment on above: Result Comment: Repo rted eGFR is based on the CKD-EPI 2020 equation using creatinine, age, and sex. Performed By: #### I ABRIL ANDREA HDLT #### [facility] (DEFAULT) [address] [place] [address] 16828 Glucose [Mass/Vol] 95 mg/dL Normal 70-99 [facility] Comment on above: Performed By: #### I BARIL ANDREA HDLT #### [facility] (DEFAULT) [address] [place] [address] 03803 Osmolality [Osmolality] 298 mosm/kg Normal 278-305 [facility] Comment on above: Performed By: #### ABRIL SIERRA HDLT #### [facility] (DEFAULT) [address] [place] [address] 11505 Potassium [Moles/Vol] 4.0 mmol/L Normal 3.5-5.0 [facility] Comment on above: Performed By: #### MG RIGOO, HDLT #### [facility] (DEFAULT) [address] [place] [address] 74426 Sodium [Moles/Vol] 140 mmol/L Normal 135-145 [facility] Comment on above: Performed By: #### I PB, MGO, HDLT #### [facility] (DEFAULT) [address] [place] [address] 33094 Urea nitrogen [Mass/Vol] 28 mg/dL High 7-25 [facility] Comment on above: Performed By: #### I PB, MGO, HDLT #### [facility] (DEFAULT) [address] [place] [address] 43315 Urea nitrogen/Creatinine [Mass ratio] 32 mg/mg Normal [facility] Comment on above: Performed By: #### I PB, MGO, HDLT #### [facility] (DEFAULT) [address] [place] [address] 35193 MAGNESIUMon 04-17-2024 Interpretation and review of laboratory results Normal [facility] Magnesium [Mass/Vol] 2.0 mg/dL 1.6 - 2 .6 mg/dL [facility] Magnesium [Mass/Vol] 2.0 mg/dL Normal 1.6-2.6 [facility] Comment on above: Performed By: #### I PB, MGO, HDLT #### [facility] (DEFAULT) [address] [place] [address] 11260 No Panel Informationon 04-17 [facility] CBC AND ELECTRONIC DIFFon Basophils (Bld) [#/Vol] K/uL 0.00 - 0.15 K/uL [facility] Basophils/100 WBC (Bld) 0.3 % [facility] Differential cell count method Nom (Bld) Electronic Differential [facility] Eosinophils (Bld) [#/Vol] 0.33 10*3/uL 0.00 - 0.42 K/uL [facility] Eosinophils/100 WBC (Bld) 3.8 % [facility] Erythrocyte distribution width (RBC) [Ratio] 12.5 % 10.8 - 14.9 % [facility] Hematocrit (Bld) [Volume fraction] 38.9 % 34.9 - 44.3 % [facility] Hemoglobin (Bld) [Mass/Vol] 12.9 g/dL 11.4 - 15.2 g/dL [facility] Immature granulocytes (Bld) [#/Vol] 0.04 10*3/uL NINF - 0.08 K/uL [facility] Immature granulocytes/100 WBC (Bld) 0.5 % [facility] Lymphocytes (Bld) [#/Vol] 2.88 10*3/uL 1.16 - 3.51 K/uL [facility] Lymphocytes/100 WBC (Bld) 33.4 % [facility] MCH (RBC) [Entitic mass] 30.4 pg 25.9 - 33.9 pg [facility] MCHC (RBC) [Mass/Vol] 33.2 g/dL 31.4 - 35.9 g/dL [facility] MCV (RBC) [Entitic vol] 91.7 fL 79.6 - 97.7 fL [facility] Monocytes (Bld) [#/Vol] 0.71 10*3/uL 0.22 - 0.87 K/uL [facility] Monocytes/100 WBC (Bld) 8.2 % [facility] Neutrophils (Bld) [#/Vol] 4.62 10*3/uL 1.64 - 7.28 K/uL [facility] Nucleated RBC/100 WBC (Bld) [Ratio] 0.0 % [facility] Platelet mean volume (Bld) [Entitic vol] 10.1 fL 8.5 - 12.2 fL [facility] Platelets (Bld) [#/Vol] 254 10*3/uL 150 - 393 K/uL [facility] RBC (Bld) [#/Vol] 4.24 10*6/uL [facility] Segmented neutrophils/100 WBC (Bld) 53.8 % [facility] WBC (Bld) [#/Vol] 8.61 10*3/uL 3.99 - 11.19 K/uL [facility] Abs Baso Auto < Normal 0.00-0.15 [facility] Comment on above: Performed By: #### I PB, MGO, HDLT #### [facility] (DEFAULT) [address] [place] [address] 74929 Basophils/100 WBC (Bld) 0.3 % Normal [facility] Comment on above: Performed By: #### I PB, MGO, HDLT #### [facility] (DEFAULT) [address] [place] [address] 09592 DIFF STATUS Electronic Differential Normal [facility] Comment on above: Performed By: #### I PB, MGO, HDLT #### [facility] (DEFAULT) [address] [place] [address] 42003 Eosinophils (Bld) [#/Vol] 0.33 10*3/uL Normal 0.00-0.42 [facility] Comment on above: Performed By: #### I PB, MGO, HDLT #### [facility] (DEFAULT) [address] [place] [address] 40811 Eosinophils/100 WBC (Bld) 3.8 % Normal [facility] Comment on above: Performed By: #### I PB, MGO, HDLT #### [facility] (DEFAULT) [address] [place] [address] 07107 Hematocrit (Bld) [Volume fraction] 38.9 % Normal 34.9-44.3 [facility] Comment on above: Performed By: #### I PB, MGO, HDLT #### [facility] (DEFAULT) [address] [place] [address] 24811 Hemoglobin (Bld) [Mass/Vol] 12.9 g/dL Normal 11.4-15.2 [facility] Comment on above: Performed By: #### I PB, MGO, HDLT #### [facility] (DEFAULT) [address] [place] [address] 53012 Immature Grans % 0.5 % Normal [facility] Comment on above: Performed By: #### I PB, MGO, HDLT #### [facility] (DEFAULT) [address] [place] [address] 64953 Immature Grans Absolute 0.04 K/uL Normal <=0.08 [facility] Comment on above: Performed By: #### I PB, MGO, HDLT #### [facility] (DEFAULT) [address] [place] [address] 99770 Lymphocytes (Bld) [#/Vol] 2.88 10*3/uL Normal 1.16-3.51 [facility] Comment on above: Performed By: #### [place] PB, MGO, HDLT #### [facility] (DEFAULT) [address] [place] [address] 92523 Lymphocytes/100 WBC (Bld) 33.4 % Normal [facility] Comment on above: Performed By: #### [place] PB MGO, HDLT #### [facility] (DEFAULT) [address] [address] MCV (RBC) [Entitic vol] 91.7 fL Normal 79.6-97.7 [facility] Comment on above: Performed By: #### I PB, MGO, HDLT #### [facility] (DEFAULT) [address] [place] [address] 94447 Mean Cell Hgb 30.4 pg Normal 25.9-33.9 [facility] Comment on above: Performed By: #### I PB, MGO, HDLT #### [facility] (DEFAULT) [address] [place] [address] 87058 Mean Cell Hgb Conc 33.2 g/dL Normal 31.4-35.9 [facility] Comment on above: Performed By: #### I PB, MGO, HDLT #### [facility] (DEFAULT) [address] [place] [address] 38457 Monocytes (Bld) [#/Vol] 0.71 10*3/uL Normal 0.22-0.87 [facility] Comment on above: Performed By: #### I PB, MGO, HDLT #### [facility] (DEFAULT) [address] [place] [address] 44343 Monocytes/100 WBC (Bld) 8.2 % Normal [facility] Comment on above: Performed By: #### I PB, MGO, HDLT #### [facility] (DEFAULT) [address] [place] [place] [address] 64346 Nucleated RBC 0.0 /100 WBC Normal <=0.2 [facility] Comment on above: Performed By: #### I PB, MGO, HDLT #### [facility] (DEFAULT) [address] [address] 20612 Platelet mean volume (Bld) [Entitic vol] 10.1 fL Normal 8.5-12.2 [facility] Comment on above: Performed By: #### I PB, MGO, HDLT #### [facility] (DEFAULT) [address] [place] [address] 46075 Platelets (Bld) [#/Vol] 254 10*3/uL Normal 150-393 [facility] Comment on above: Performed By: #### I PB, MGO, HDLT #### [facility] (DEFAULT) [address] [place] [address] 21667 RBC (Bld) [#/Vol] 4.24 10*6/uL Normal 3.91-5.04 [facility] Comment on above: Performed By: #### I PB, MGO, HDLT #### [facility] (DEFAULT) [address] [place] [address] 76904 RBC Distribution 12.5 % Normal 10.8-14.9 [facility] Comment on above: Performed By: #### I PB, MGO, HDLT #### [facility] (DEFAULT) [address] [place] [address] Segs + Bands Auto 53.8 % Normal [facility] Comment on above: Performed By: #### I PB, MGO, HDLT #### [facility] (DEFAULT) [address] [place] [address] 41328 Segs + Bands,Absolute Auto 4.62 K/uL Normal 1.64-7.28 [facility] Comment on above: Performed By: #### I PB, MGO, HDLT #### [facility] (DEFAULT) [address] [place] [address] 18176 WBC (Bld) [#/Vol] 8.61 10*3/uL Normal 3.99-11.19 [facility] Comment on above: Performed By: #### I PB, MGO, HDLT #### [facility] (DEFAULT) [address] [place] [address] 22062 CHEM 7 (LYTES,BUN,CREA,GLUC) on 04-16-2024 Anion gap [Moles/Vol] 13 mmol/L 7 - 17 mmol/L [facility] Chloride [Moles/Vol] 101 mmol/L 98 - 10 8 mmol/L [facility] CO2 [Moles/Vol] 32 mmol/L High 21 - 31 mmol/L [facility] Creatinine [Mass/Vol] 0.97 mg/dL 0.50 - 1.20 mg/dL [facility] eGFR, CKD-EPI, Female 61 - PINF [facility] Comment on above: Reported eGFR is bas ed on the CKD-EPI 2020 equation using creatinine, age, and sex. Glucose [Mass/Vol] 104 mg/dL High 70 - 99 mg/dL [facility] Interpretation and review of laboratory results Abnormal [facility] Osmolality Calc [Osmolality] 303 [facility] Potassium [Moles/Vol] 4.1 mmol/L 3.5 - 5.0 mmol/L [facility] Sodium [Moles/Vol] 142 mmol/L 135 - 145 mmol/L [facility] Urea nitrogen [Mass/Vol] 29 mg/dL High 7 - 25 mg/dL [facility] Urea nitrogen/Creatinine [Mass ratio] 30 mg/mg [facility] Anion gap [Moles/Vol] 13 mmol/L Normal 7-17 [facility] Comment on above: Performed By: #### L [id number] #### [facility] (DEFAULT) [address] [place] [address] 82357 Chloride [Moles/Vol] 101 mmol/L Normal 98-108 [facility] Comment on above: Performed By: #### L [id number] #### [facility] (DEFAULT) [address] [place] [address] 76064 CO2 [Moles/Vol] 32 mmol/L High 21-31 [facility] Comment on above: Performed By: #### L [id number] #### [facility] (DEFAULT) [address] [address] 98523 Creatinine [Mass/Vol] 0.97 mg/dL Normal 0.50-1.20 [facility] Comment on above: Performed By: #### L [id number] #### [facility] (DEFAULT) [address] [address] 68923 GFR/1.73 sq M.predicted among non-blacks MDRD (S/P/Bld) [Vol rate/Area] 61 mL/min/{1.73_m2} Normal >=60 [facility] Comment on above: Result Comment: Repo rted eGFR is based on the CKD-EPI 2020 equation using creatinine, age, and sex. Performed By: #### L [id number] #### [facility] (DEFAULT) [address] [address] 10575 Glucose [Mass/Vol] 104 mg/dL High 70-99 [facility] Comment on above: Performed By: #### L [id number] #### [facility] (DEFAULT) [address] [place] [address] 47348 Osmolality [Osmolality] 303 mosm/kg Normal 278-305 [facility] Comment on above: Performed By: #### L [id number] #### [facility] (DEFAULT) [address] [place] [address] 04940 Potassium [Moles/Vol] 4.1 mmol/L Normal 3.5-5.0 [facility] Comment on above: Performed By: #### L [id number] #### [facility] (DEFAULT) [address] [address] 34164 Sodium [Moles/Vol] 142 mmol/L Normal 135-145 [facility] Comment on above: Performed By: #### L [id number] #### [facility] (DEFAULT) [address] [place] [address] 54991 Urea nitrogen [Mass/Vol] 29 mg/dL High 7-25 [facility] Comment on above: Performed By: #### L [id number] #### [facility] (DEFAULT) [address] [address] 72808 Urea nitrogen/Creatinine [Mass ratio] 30 mg/mg Normal [facility] Comment on above: Performed By: #### L [id number] #### [facility] (DEFAULT) [address] [address] 50462 EP CARDIOVERSION EXTERNALon 04-16-2024 EP CARDIOVERSION EXTERNAL Elizabeth Persaud is a 78 y.o. female with persistent atrial fibrillation who presented for cardioversion. - Successful 200 J cardioversion. Plan Continue Eliquis and Tikosyn. Outpatient AF ablation scheduled next week. Table formatting from the original result was not included. Elizabeth Persaud EP Procedure - EPS/Ablation/Device Ordering Physician: LANDON ADHIKARI Order #: [id number] Study Date: 04/15/2024 Patient Information Name MRN Description Elizabeth Persaud [id number] 78 y.o. female Physicians Panel Physicians Referring Physician Case Authorizing Physician Landon Garcia MD (Primary) DO Landon Ring MD Procedures Cardioversion Pre Procedure Diagnosis Persistent atrial fibrillation Post Procedure Diagnosis Persistent atrial fibrillation Indications Persistent atrial fibrillation [I48.19 (ICD-10-CM)] Conclusion Elizabeth Persaud is a 78 y.o. female with persistent atrial fibrillation who presented for cardioversion. - Successful 200 J cardioversion. Plan Continue Eliquis and Tikosyn. Outpatient AF ablation scheduled next week. Consent The procedure was explained including the potential risks of infection, heart perforation, re-operation, and other risks pertinent to procedure. Informed consent and permission to proceed was given. Cardioversion/Defibrillatio n Arrhythmia Type: atrial fibrillation. Method of Cardioversion: synchronous cardioversion. The arrhythmia was terminated. Energy shock delivered: 200 joules. Time shock delivered: 14:04 EST. Post cardioversion rhythm: sinus rhythm. Implants No implant documentation for this case. Measurements BSA: 1.58 m2 Complications Complications documented before study signed (04/16/2024 7:34 AM) No complications were associated with this study. Documented by Landon Garcia MD - 04/15/2024 2:40 PM Electrophysiology Lab Attending Physician Statement and Signature I personally preformed and/or personally supervised and was present for this entire procedure, including the review and interpretation of all electrophysiologic tracings acquired during the course of this study. The medications listed have been ordered by me, and have been administered under my direct supervision. Signed at 1444 EST ABN Associated with this Order There is no ABN associated with this order. Normal [facility] Elizabeth Persaud is a 78 y.o. female with persistent atrial fibrillation who presented for cardioversion. - Successful 200 J cardioversion. Plan Continue Eliquis and Tikosyn. Outpatient AF ablation scheduled next week. [facility] EP CARDIOVERSION EXTERNALOrd ered By: Landon Garcia on 04-16-2024 Body surface area Derived from formula 1.58 m2 [facility] Work Phone: [facility] Work Phone: MAGNESIUMon 04-16-2024 Interpretation and review of laboratory results Normal [facility] Magnesium [Mass/Vol] 2.0 mg/dL 1.6 - 2 .6 mg/dL [facility] Magnesium [Mass/Vol] 2.0 mg/dL Normal 1.6-2.6 [facility] Comment on above: Performed By: #### L [id number] #### [facility] (DEFAULT) [address] [address] No Panel Informationon 04-16 [facility] CBC AND ELECTRONIC DIFFon Basophils (Bld) [#/Vol] 0.04 10*3/uL 0.00 - 0.15 K/uL [facility] Basophils/100 WBC (Bld) 0.4 % [facility] Differential cell count method Nom (Bld) Electronic Differential [facility] Eosinophils (Bld) [#/Vol] 0.29 10*3/uL 0.00 - 0.42 K/uL [facility] Eosinophils/100 WBC (Bld) 3.2 % [facility] Erythrocyte distribution width (RBC) [Ratio] 12.3 % 10.8 - 14.9 % [facility] Hematocrit (Bld) [Volume fraction] 41.1 % 34.9 - 44.3 % [facility] Hemoglobin (Bld) [Mass/Vol] 13.5 g/dL 11.4 - 15.2 g/dL [facility] Immature granulocytes (Bld) [#/Vol] K/uL NINF - 0.08 K/uL [facility] Immature granulocytes/100 WBC (Bld) 0.3 % [facility] Lymphocytes (Bld) [#/Vol] 3.23 10*3/uL 1.16 - 3.51 K/uL [facility] Lymphocytes/100 WBC (Bld) 35.2 % [facility] MCH (RBC) [Entitic mass] 30.6 pg 25.9 - 33.9 pg [facility] MCHC (RBC) [Mass/Vol] 32.8 g/dL 31.4 - 35.9 g/dL [facility] MCV (RBC) [Entitic vol] 93.2 fL 79.6 - 97.7 fL [facility] Monocytes (Bld) [#/Vol] 0.82 10*3/uL 0.22 - 0.87 K/uL [facility] Monocytes/100 WBC (Bld) 8.9 % [facility] Neutrophils (Bld) [#/Vol] 4.77 10*3/uL 1.64 - 7.28 K/uL [facility] Nucleated RBC/100 WBC (Bld) [Ratio] 0.0 % NINF [facility] Platelet mean volume (Bld) [Entitic vol] 10.4 fL 8.5 - 12.2 fL [facility] Platelets (Bld) [#/Vol] 265 10*3/uL 150 - 393 K/uL [facility] RBC (Bld) [#/Vol] 4.41 10*6/uL [facility] Segmented neutrophils/100 WBC (Bld) 52.0 % [facility] WBC (Bld) [#/Vol] 9.18 10*3/uL 3.99 - 11.19 K/uL [facility] Basophils (Bld) [#/Vol] 0.04 10*3/uL Normal 0.00-0.15 [facility] Comment on above: Performed By: #### I PBMGO, HDLT #### [facility] (DEFAULT) [address] [address] 20483 Basophils/100 WBC (Bld) 0.4 % Normal [facility] Comment on above: Performed By: #### I PB MGO, HDLT #### [facility] (DEFAULT) [address] [place] [address] 35187 DIFF STATUS Electronic Differential Normal [facility] Comment on above: Performed By: #### I PB MGO, HDLT #### [facility] (DEFAULT) [address] [place] [address] 37963 Eosinophils (Bld) [#/Vol] 0.29 10*3/uL Normal 0.00-0.42 [facility] Comment on above: Performed By: #### I PB MGO, HDLT #### [facility] (DEFAULT) [address] [address] 81241 Eosinophils/100 WBC (Bld) 3.2 % Normal [facility] Comment on above: Performed By: #### I PB, MGO, HDLT #### [facility] (DEFAULT) [address] [address] 89930 Hematocrit (Bld) [Volume fraction] 41.1 % Normal 34.9-44.3 [facility] Comment on above: Performed By: #### I PB, MGO, HDLT #### [facility] (DEFAULT) [address] [place] [address] 07374 Hemoglobin (Bld) [Mass/Vol] 13.5 g/dL Normal 11.4-15.2 [facility] Comment on above: Performed By: #### I PB, MGO, HDLT #### [facility] (DEFAULT) [address] [address] 41999 Immature Grans % 0.3 % Normal [facility] Comment on above: Performed By: #### I PB, MGO, HDLT #### [facility] (DEFAULT) [address] [place] [address] 84638 Immature Grans Absolute < Normal <=0.08 [facility] Comment on above: Performed By: #### I PB, MGO, HDLT #### [facility] (DEFAULT) [address] [place] [address] 35388 Lymphocytes (Bld) [#/Vol] 3.23 10*3/uL Normal 1.16-3.51 [facility] Comment on above: Performed By: #### I PB, MGO, HDLT #### [facility] (DEFAULT) [address] [address] 81733 Lymphocytes/100 WBC (Bld) 35.2 % Normal [facility] Comment on above: Performed By: #### I PB, MGO, HDLT #### [facility] (DEFAULT) [address] [place] [address] 26297 MCV (RBC) [Entitic vol] 93.2 fL Normal 79.6-97.7 [facility] Comment on above: Performed By: #### I PB, MGO, HDLT #### [facility] (DEFAULT) [address] [place] [address] 79447 Mean Cell Hgb 30.6 pg Normal 25.9-33.9 [facility] Comment on above: Performed By: #### I PB, MGO, HDLT #### [facility] (DEFAULT) [address] [address] 09434 Mean Cell Hgb Conc 32.8 g/dL Normal 31.4-35.9 [facility] Comment on above: Performed By: #### I PB, MGO, HDLT #### [facility] (DEFAULT) [address] [address] 83110 Monocytes (Bld) [#/Vol] 0.82 10*3/uL Normal 0.22-0.87 [facility] Comment on above: Performed By: #### I PB, MGO, HDLT #### [facility] (DEFAULT) [address] [place] [address] 21954 Monocytes/100 WBC (Bld) 8.9 % Normal [facility] Comment on above: Performed By: #### I PB, MGO, HDLT #### [facility] (DEFAULT) [address] [place] [address] 27751 Nucleated RBC 0.0 /100 WBC Normal <=0.2 [facility] Comment on above: Performed By: #### I PB, MGO, HDLT #### [facility] (DEFAULT) [address] [place] [address] 36873 Platelet mean volume (Bld) [Entitic vol] 10.4 fL Normal 8.5-12.2 [facility] Comment on above: Performed By: #### I PB, MGO, HDLT #### [facility] (DEFAULT) [address] [address] 77821 Platelets (Bld) [#/Vol] 265 10*3/uL Normal 150-393 [facility] Comment on above: Performed By: #### I PB, MGO, HDLT #### [facility] (DEFAULT) [address] [place] [address] 34808 RBC (Bld) [#/Vol] 4.41 10*6/uL Normal 3.91-5.04 [facility] Comment on above: Performed By: #### I PB, MGO, HDLT #### [facility] (DEFAULT) [address] [address] 51917 RBC Distribution 12.3 % Normal 10.8-14.9 [facility] Comment on above: Performed By: #### I PB, MGO, HDLT #### [facility] (DEFAULT) [address] [place] [address] 35466 Segs + Bands Auto 52.0 % Normal [facility] Comment on above: Performed By: #### I PB, MGO, HDLT #### [facility] (DEFAULT) [address] [address] 63243 Segs + Bands,Absolute Auto 4.77 K/uL Normal 1.64-7.28 [facility] Comment on above: Performed By: #### I PB, MGO, HDLT #### [facility] (DEFAULT) [address] [address] 97636 WBC (Bld) [#/Vol] 9.18 10*3/uL Normal 3.99-11.19 [facility] Comment on above: Performed By: #### I PB, MGO, HDLT #### [facility] (DEFAULT) [address] [address] 18062 CHEM 7 (LYTES,BUN,CREA,GLUC) on 04-15-2024 Anion gap [Moles/Vol] 15 mmol/L 7 - 17 mmol/L [facility] Chloride [Moles/Vol] 101 mmol/L 98 - 10 8 mmol/L [facility] CO2 [Moles/Vol] 28 mmol/L 21 - 31 mmol/L [facility] Creatinine [Mass/Vol] 1.47 mg/dL High 0.50 - 1.20 mg/dL [facility] eGFR, CKD-EPI, Female 37 Low - PINF [facility] Comment on above: Reported eGFR is bas ed on the CKD-EPI 2020 equation using creatinine, age, and sex. Glucose [Mass/Vol] 111 mg/dL High 70 - 99 mg/dL [facility] Interpretation and review of laboratory results Abnormal [facility] Osmolality Calc [Osmolality] 301 [facility] Potassium [Moles/Vol] 4.4 mmol/L 3.5 - 5.0 mmol/L [facility] Sodium [Moles/Vol] 140 mmol/L 135 - 145 mmol/L [facility] Urea nitrogen [Mass/Vol] 32 mg/dL High 7 - 25 mg/dL [facility] Urea nitrogen/Creatinine [Mass ratio] 22 mg/mg [facility] Anion gap [Moles/Vol] 15 mmol/L Normal 7-17 [facility] Comment on above: Performed By: #### L AB980 #### [facility] (DEFAULT) [address] [address] Chloride [Moles/Vol] 101 mmol/L Normal 98-108 [facility] Comment on above: Performed By: #### L AB980 #### [facility] (DEFAULT) [address] [place] [address] CO2 [Moles/Vol] 28 mmol/L Normal 21-31 [facility] Comment on above: Performed By: #### L AB980 #### [facility] (DEFAULT) [address] [address] 74718 Creatinine [Mass/Vol] 1.47 mg/dL High 0.50-1.20 [facility] Comment on above: Performed By: #### L AB980 #### [facility] (DEFAULT) [address] [address] 31680 GFR/1.73 sq M.predicted among non-blacks MDRD (S/P/Bld) [Vol rate/Area] 37 mL/min/{1.73_m2} Low >=60 [facility] Comment on above: Result Comment: Repo rted eGFR is based on the CKD-EPI 2020 equation using creatinine, age, and sex. Performed By: #### L AB980 #### [facility] (DEFAULT) [address] [address] 41536 Glucose [Mass/Vol] 111 mg/dL High 70-99 [facility] Comment on above: Performed By: #### L AB980 #### [facility] (DEFAULT) [address] [address] 47370 Osmolality [Osmolality] 301 mosm/kg Normal 278-305 [facility] Comment on above: Performed By: #### L AB980 #### [facility] (DEFAULT) [address] [address] 77310 Potassium [Moles/Vol] 4.4 mmol/L Normal 3.5-5.0 [facility] Comment on above: Performed By: #### L AB980 #### [facility] (DEFAULT) [address] [place] [address] 82941 Sodium [Moles/Vol] 140 mmol/L Normal 135-145 [facility] Comment on above: Performed By: #### L AB980 #### [facility] (DEFAULT) [address] [address] 23432 Urea nitrogen [Mass/Vol] 32 mg/dL High 7-25 [facility] Comment on above: Performed By: #### L AB980 #### [facility] (DEFAULT) [address] [address] 33197 Urea nitrogen/Creatinine [Mass ratio] 22 mg/mg Normal [facility] Comment on above: Performed By: #### L AB980 #### [facility] (DEFAULT) [address] [place] [address] ECGOrdered By: David barrera 04-15-2024 [facility] Work Phone: EP CARDIOVERSION EXTERNALon 04-15-2024 Radiology Study observation (narrative) [facility] MAGNESIUMon 04-15-2024 Interpretation and review of laboratory results Normal [facility] Magnesium [Mass/Vol] 2.2 mg/dL 1.6 - 2 .6 mg/dL [facility] Magnesium [Mass/Vol] 2.2 mg/dL Normal 1.6-2.6 [facility] Comment on above: Performed By: #### L AB980 #### [facility] (DEFAULT) [address] [place] [address] No Panel Informationon 04-15 [facility] CBC AND ELECTRONIC DIFFon Basophils (Bld) [#/Vol] 0.05 10*3/uL 0.00 - 0.15 K/uL [facility] Basophils/100 WBC (Bld) 0.6 % [facility] Differential cell count method Nom (Bld) Electronic Differential [facility] Eosinophils (Bld) [#/Vol] 0.34 10*3/uL 0.00 - 0.42 K/uL [facility] Eosinophils/100 WBC (Bld) 3.9 % [facility] Erythrocyte distribution width (RBC) [Ratio] 12.5 % 10.8 - 14.9 % [facility] Hematocrit (Bld) [Volume fraction] 39.9 % 34.9 - 44.3 % [facility] Hemoglobin (Bld) [Mass/Vol] 13.0 g/dL 11.4 - 15.2 g/dL [facility] Immature granulocytes (Bld) [#/Vol] K/uL NINF - 0.08 K/uL [facility] Immature granulocytes/100 WBC (Bld) 0.3 % [facility] Lymphocytes (Bld) [#/Vol] 3.15 10*3/uL 1.16 - 3.51 K/uL [facility] Lymphocytes/100 WBC (Bld) 36.4 % [facility] MCH (RBC) [Entitic mass] 30.0 pg 25.9 - 33.9 pg [facility] MCHC (RBC) [Mass/Vol] 32.6 g/dL 31.4 - 35.9 g/dL [facility] MCV (RBC) [Entitic vol] 92.1 fL 79.6 - 97.7 fL [facility] Monocytes (Bld) [#/Vol] 0.76 10*3/uL 0.22 - 0.87 K/uL [facility] Monocytes/100 WBC (Bld) 8.8 % [facility] Neutrophils (Bld) [#/Vol] 4.33 10*3/uL 1.64 - 7.28 K/uL [facility] Nucleated RBC/100 WBC (Bld) [Ratio] 0.0 % NINF [facility] Platelet mean volume (Bld) [Entitic vol] 10.0 fL 8.5 - 12.2 fL [facility] Platelets (Bld) [#/Vol] 255 10*3/uL 150 - 393 K/uL [facility] RBC (Bld) [#/Vol] 4.33 10*6/uL [facility] Segmented neutrophils/100 WBC (Bld) 50.0 % [facility] WBC (Bld) [#/Vol] 8.66 10*3/uL 3.99 - 11.19 K/uL [facility] Basophils (Bld) [#/Vol] 0.05 10*3/uL Normal 0.00-0.15 [facility] Comment on above: Performed By: #### L [id number] #### [facility] (DEFAULT) [address] [place] [address] Basophils/100 WBC (Bld) 0.6 % Normal [facility] Comment on above: Performed By: #### L [id number] #### [facility] (DEFAULT) [address] [address] [place] [id number] DIFF STATUS Electronic Differential Normal [facility] Comment on above: Performed By: #### L [id number] #### [facility] (DEFAULT) [address] [place] [address] 83466 Eosinophils (Bld) [#/Vol] 0.34 10*3/uL Normal 0.00-0.42 [facility] Comment on above: Performed By: #### L [id number] #### [facility] (DEFAULT) [address] [place] [address] 54230 Eosinophils/100 WBC (Bld) 3.9 % Normal [facility] Comment on above: Performed By: #### L [id number] #### [facility] (DEFAULT) [address] [place] [address] 93835 Hematocrit (Bld) [Volume fraction] 39.9 % Normal 34.9-44.3 [facility] Comment on above: Performed By: #### L [id number] #### [facility] (DEFAULT) [address] [place] [address] 04067 Hemoglobin (Bld) [Mass/Vol] 13.0 g/dL Normal 11.4-15.2 [facility] Comment on above: Performed By: #### L [id number] #### [facility] (DEFAULT) [address] [place] [address] 09159 Immature Grans % 0.3 % Normal [facility] Comment on above: Performed By: #### L [id number] #### [facility] (DEFAULT) [address] [place] [address] 05457 Immature Grans Absolute < Normal <=0.08 [facility] Comment on above: Performed By: #### L [id number] #### [facility] (DEFAULT) [address] [place] [address] 19498 Lymphocytes (Bld) [#/Vol] 3.15 10*3/uL Normal 1.16-3.51 [facility] Comment on above: Performed By: #### L [id number] #### [facility] (DEFAULT) [address] [place] [address] 26051 Lymphocytes/100 WBC (Bld) 36.4 % Normal [facility] Comment on above: Performed By: #### L [id number] #### [facility] (DEFAULT) [address] [place] [address] 61708 MCV (RBC) [Entitic vol] 92.1 fL Normal 79.6-97.7 [facility] Comment on above: Performed By: #### L [id number] #### [facility] (DEFAULT) [address] [address] Mean Cell Hgb 30.0 pg Normal 25.9-33.9 [facility] Comment on above: Performed By: #### L [id number] #### [facility] (DEFAULT) [address] [address] 36011 Mean Cell Hgb Conc 32.6 g/dL Normal 31.4-35.9 [facility] Comment on above: Performed By: #### L [id number] #### [facility] (DEFAULT) [address] [place] [address] 79608 Monocytes (Bld) [#/Vol] 0.76 10*3/uL Normal 0.22-0.87 [facility] Comment on above: Performed By: #### L [id number] #### [facility] (DEFAULT) [address] [address] Monocytes/100 WBC (Bld) 8.8 % Normal [facility] Comment on above: Performed By: #### L [id number] #### [facility] (DEFAULT) [address] [address] Nucleated RBC 0.0 /100 WBC Normal <=0.2 [facility] Comment on above: Performed By: #### L [id number] #### [facility] (DEFAULT) [address] [place] [address] 45321 Platelet mean volume (Bld) [Entitic vol] 10.0 fL Normal 8.5-12.2 [facility] Comment on above: Performed By: #### L [id number] #### [facility] (DEFAULT) [address] [place] [address] 42373 Platelets (Bld) [#/Vol] 255 10*3/uL Normal 150-393 [facility] Comment on above: Performed By: #### L [id number] #### [facility] (DEFAULT) [address] [address] 98300 RBC (Bld) [#/Vol] 4.33 10*6/uL Normal 3.91-5.04 [facility] Comment on above: Performed By: #### L [id number] #### [facility] (DEFAULT) [address] [place] [address] 24682 RBC Distribution 12.5 % Normal 10.8-14.9 [facility] Comment on above: Performed By: #### L [id number] #### [facility] (DEFAULT) [address] [place] [address] 18340 Segs + Bands Auto 50.0 % Normal [facility] Comment on above: Performed By: #### L [id number] #### [facility] (DEFAULT) [address] [address] 11753 Segs + Bands,Absolute Auto 4.33 K/uL Normal 1.64-7.28 [facility] Comment on above: Performed By: #### L [id number] #### [facility] (DEFAULT) [address] [place] [address] 74159 WBC (Bld) [#/Vol] 8.66 10*3/uL Normal 3.99-11.19 [facility] Comment on above: Performed By: #### L [id number] #### [facility] (DEFAULT) [address] [address] 57056 CHEM 7 (LYTES,BUN,CREA,GLUC) on 04-14-2024 Anion gap [Moles/Vol] 13 mmol/L 7 - 17 mmol/L [facility] Chloride [Moles/Vol] 98 mmol/L 98 - 10 8 mmol/L [facility] CO2 [Moles/Vol] 33 mmol/L High 21 - 31 mmol/L [facility] Creatinine [Mass/Vol] 1.08 mg/dL 0.50 - 1.20 mg/dL [facility] eGFR, CKD-EPI, Female 55 Low - PINF [facility] Comment on above: Reported eGFR is bas ed on the CKD-EPI 2020 equation using creatinine, age, and sex. Glucose [Mass/Vol] 110 mg/dL High 70 - 99 mg/dL [facility] Interpretation and review of laboratory results Abnormal [facility] Osmolality Calc [Osmolality] 301 [facility] Potassium [Moles/Vol] 4.3 mmol/L 3.5 - 5.0 mmol/L [facility] Sodium [Moles/Vol] 140 mmol/L 135 - 145 mmol/L [facility] Urea nitrogen [Mass/Vol] 32 mg/dL High 7 - 25 mg/dL [facility] Urea nitrogen/Creatinine [Mass ratio] 30 mg/mg [facility] Anion gap [Moles/Vol] 13 mmol/L Normal 7-17 [facility] Comment on above: Performed By: #### U R #### [facility] (DEFAULT) [address] [place] [address] 90628 Chloride [Moles/Vol] 98 mmol/L Normal 98-108 [facility] Comment on above: Performed By: #### U R #### [facility] (DEFAULT) [address] [place] [address] CO2 [Moles/Vol] 33 mmol/L High 21-31 [facility] Comment on above: Performed By: #### U R #### [facility] (DEFAULT) [address] [place] [address] Creatinine [Mass/Vol] 1.08 mg/dL Normal 0.50-1.20 [facility] Comment on above: Performed By: #### U R #### [facility] (DEFAULT) [address] [address] 99420 GFR/1.73 sq M.predicted among non-blacks MDRD (S/P/Bld) [Vol rate/Area] 53 mL/min/{1.73_m2} Low >=60 [facility] Comment on above: Result Comment: Repo rted eGFR is based on the CKD-EPI 2020 equation using creatinine, age, and sex. Performed By: #### U R #### [facility] (DEFAULT) [address] [place] [address] 73475 Glucose [Mass/Vol] 110 mg/dL High 70-99 [facility] Comment on above: Performed By: #### U R #### [facility] (DEFAULT) [address] [place] [address] 32342 Osmolality [Osmolality] 301 mosm/kg Normal 278-305 [facility] Comment on above: Performed By: #### U R #### [facility] (DEFAULT) [address] [place] [address] 52095 Potassium [Moles/Vol] 4.3 mmol/L Normal 3.5-5.0 [facility] Comment on above: Performed By: #### U R #### [facility] (DEFAULT) [address] [place] [address] 60079 Sodium [Moles/Vol] 140 mmol/L Normal 135-145 [facility] Comment on above: Performed By: #### U R #### [facility] (DEFAULT) [address] [place] [address] 03325 Urea nitrogen [Mass/Vol] 32 mg/dL High 7-25 [facility] Comment on above: Performed By: #### U R #### [facility] (DEFAULT) [address] [place] [address] 41741 Urea nitrogen/Creatinine [Mass ratio] 30 mg/mg Normal [facility] Comment on above: Performed By: #### U R #### [facility] (DEFAULT) [address] [place] [address] Cardiac echo study Procedure Ordered By: Mata Jean Baptiste on 04-14-2024 Ao ASC index 1.99 cm/m2 [facility] Work Phone: Ao peak maria elena 1.20 m/s [facility] Work Phone: Ao SOV index 1.76 cm/m2 [facility] Work Phone: Ao STJ index 1.65 cm/m2 [facility] Work Phone: Ao VTI 17.44 cm [facility] Work Phone: Ascending [facility] 3.[facility]: AV LVOT peak gradient 2 mmHg [facility] Work Phone: AV mean gradient 4 mmHg [facility] Work Phone: AV peak gradient 6 mmHG [facility] Work Phone: AV valve area 1.35 cm2 [facility] Work Phone: AV Velocity Ratio 0.58 [facility] Work Phone: RHONDA (continuity Vmax) 1.31 cm2 [facility] Work Phone: RHONDA (continuity VTI) 1.35 cm2 [facility] Work Phone: RHONDA index (continuity Vmax) 0.83 m/s [facility] Work Phone: RHONDA index (continuity VTI) 0.85 cm2/m2 [facility] Work Phone: Body surface area Derived from formula 1.58 m2 [facility] Work Phone: DI (Vmax) 0.58 [facility] Work Phone: DI (VTI) 0.60 m/2 [facility] Work Phone: EST RAP 5 mmHg [facility] Work Phone: EST RVSP 32 mmHg [facility] Work Phone: FS 25 % [facility] Work Phone: IVC ostium 1.46 cm [facility] Work Phone: IVS 0.76 cm [facility] Work Phone: LA ESV BP (MOD) 91 mL [facility] Work Phone: LA ESV BP (MOD) index 58 mL/m2 [facility] Work Phone: LA ESV SP 2CH (MOD) 65 mL [facility] Work Phone: LA ESV SP 4CH (MOD) 117 mL [facility] Work Phone: LV mass 128.08 g [facility] Work Phone: LV Mass Index 81.1 g/m2 [facility] Work Phone: LV RWT 0.30 [facility] Work Phone: LVIDD 5.02 cm [facility] Work Phone: LVIDS 3.78 cm [facility] Work Phone: LVOT area 2.24 cm2 [facility] Work Phone: LVOT diameter 1.69 cm [facility] Work Phone: LVOT peak maria elena 0.70 m/s [facility] Work Phone: LVOT peak VTI 10.48 cm [facility] Work Phone: LVOT stroke volume 23 cm3 [facility] Work Phone: LVOT stroke volume index 14.87 ml/m2 [facility] Work Phone: OSU AV VTI RATIO PRE STRESS 0.60 [facility] Work Phone: PV peak gradient 2 mmHg [facility] Work Phone: PV PK MARIA ELENA 0.72 m/s [facility] Work Phone: PW 0.76 cm [facility] Work Phone: RA vol index 4CH (MOD) 36.08 mL/m2 [facility] Work Phone: Right atrium volume 4 chamber method of disks 57 mL [facility] Work Phone: RV Area diastolic 18.87 cm2 [facility] Work Phone: RV Area systolic 16.19 cm2 [facility] Work Phone: RV basal diam 4.57 cm [facility] Work Phone: RV Fractional area change 14.2 % [facility] Work Phone: RV long diam 6.23 cm [facility] Work Phone: RV mid diam 3.23 cm [facility] Work Phone: RV S' 11.49 cm/s [facility] Work Phone: RVOT peak gradient 1 [facility] Work [facility]: RVOT peak maria elena 0.59 m/s [facility] Work Phone: Sinus 2.78 cm [facility] Work Phone: STJ 2.60 cm [facility] Work Phone: Stroke Volume 23 cm/mL [facility] Work Phone: Stroke volume index 15 [facility] Work Phone: TAPSE 0.81 cm [facility] Work Phone: TR pk grad 27 mmHg [facility] Work Phone: TR pk maria elena 2.59 m/s [facility] Work Phone: TV rest pulmonary artery pressure 31.80 mmHg [facility] Work Phone: [facility] Work Phone: Cardiac echo study Procedure on 04-14-2024 Normal left ventricu lar size with mild global LV dysfunction. EF difficult to quantify due to variable R-R intervals (in atrial fibrillation). EF visually estimated at 45%. Normal right ventricular size with mild to moderate RV dysfunction. Biatrial enlargement. There is mild aortic, mitral, and tricuspid regurgitation. Left Ventricle Chamber size is normal. Global hypokinesis. Ejection fraction is mildly reduced (40 - 45%). Supraventricular dysrhythmias hamper diastology evaluation. Right Ventricle Chamber size is normal. Systolic function is mildly reduced. Estimated right ventricular systolic pressure is 32 mmHg. Left Atrium Chamber size is enlarged. Right Atrium Chamber size is enlarged. IVC/SVC The inferior vena cava is normal in size. The inferior vena cava structure has a diameter <21 mm and decreases >50% during inspiration. Mitral Valve Normal appearing leaflets. Leaflet mobility is normal. Mild regurgitation. No valve stenosis. Tricuspid Valve Normal leaflets. Leaflet mobility is normal. Mild regurgitation. No stenosis. Estimated right ventricular systolic pressure is 32 mmHg. Aortic Valve Trileaflet valve. Leaflet mobility is normal. Mild regurgitation. No stenosis. Pulmonic Valve Trace regurgitation. No stenosis. Pericardium No pericardial effusion. Septum The atrial septum is normal. Aorta No dilation to extent seen. SOV: 2.78 cm. STJ: 2.60 cm. Ascendin.15 cm. Study Details A complete echocardiography study (including color flow Doppler, spectral Doppler, M-mode and microbubbles) was performed. Contrast indication: evaluation of left ventricle contiguous segments. Study limitations include poor cardiac windows. Imaging system used: Siemens. [facility] Radiology Study observation (narrative) [facility] ECHOCARDIOGRAMon 04-14-2024 Echocardiography Normal left ventricu lar size with mild global LV dysfunction. EF difficult to quantify due to variable R-R intervals (in atrial fibrillation). EF visually estimated at 45%. Normal right ventricular size with mild to moderate RV dysfunction. Biatrial enlargement. There is mild aortic, mitral, and tricuspid regurgitation. Table formatting from the original result was not included. Images from the original result were not included. Facility [facility] Patient Information Patient Name Elizabeth Persaud Legal Sex Female Indication for Exam Priority: Routine Dx: Atrial fibrillation, unspecified type [I48.91 (ICD-10-CM)] Order Question Reason for Exam Evaluation of EF, persistent Afib, HF symptoms Interpretation Summary Result History is available. Normal left ventricular size with mild global LV dysfunction. EF difficult to quantify due to variable R-R intervals (in atrial fibrillation). EF visually estimated at 45%. Normal right ventricular size with mild to moderate RV dysfunction. Biatrial enlargement. There is mild aortic, mitral, and tricuspid regurgitation. Findings Left Ventricle Chamber size is normal. Global hypokinesis. Ejection fraction is mildly reduced (40 - 45%). Supraventricular dysrhythmias hamper diastology evaluation. Right Ventricle Chamber size is normal. Systolic function is mildly reduced. Estimated right ventricular systolic pressure is 32 mmHg. Left Atrium Chamber size is enlarged. Right Atrium Chamber size is enlarged. Septum The atrial septum is normal. Mitral Valve Normal appearing leaflets. Leaflet mobility is normal. Mild regurgitation. No valve stenosis. Aortic Valve Trileaflet valve. Leaflet mobility is normal. Mild regurgitation. No stenosis. Tricuspid Valve Normal leaflets. Leaflet mobility is normal. Mild regurgitation. No stenosis. Estimated right ventricular systolic pressure is 32 mmHg. Pulmonic Valve Trace regurgitation. No stenosis. Aorta No dilation to extent seen. SOV: 2.78 cm. STJ: 2.60 cm. Ascendin.15 cm. Pericardium No pericardial effusion. IVC/SVC The inferior vena cava is normal in size. The inferior vena cava structure has a diameter <21 mm and decreases >50% during inspiration. Reading Providers Reading Role Read Date Mata Jean Baptiste MD Echo [place] 04/14/2024 Left Heart Measurements LV - Systole LVIDD 5.02 cm IVS 0.76 cm LVIDS 3.78 cm PW 0.76 cm LV RWT 0.3 LV Mass Index 81.1 g/m2 LV - HCM AV LVOT peak gradient 2 mmHg Left Atrium LA ESV SP 4CH (MOD) 117 mL LA ESV SP 2CH (MOD) 65 mL LA ESV BP (MOD) index 58 mL/m2 Right Heart Measurements RV - 2D RV basal diam 4.57 cm RV mid diam 3.23 cm RV long diam 6.23 cm RV Area diastolic 18.87 cm2 RV Area systolic 16.19 cm2 RV Fractional area change 14.2 % RV - Doppler TAPSE 0.81 cm RV S' 11.49 cm/s Right Atrium RA vol index 4CH (MOD) 36.08 mL/m2 EST RAP 5 mmHg [employer]essels Aortic Root - End Diastolic Sinus 2.78 cm STJ 2.6 cm Ascending aorta 3.15 cm Inferior Vena Cava IVC ostium 1.46 cm Doppler Measurements - Aortic Valve Stenosis LVOT diameter 1.69 cm LVOT area 2.24 cm2 LVOT peak maria elena 0.7 m/s LVOT peak VTI 10.48 cm Stroke Volume 23 cm/mL Stroke volume index 15 Ao peak maria elena 1.2 m/s Ao VTI 17.44 cm AV peak gradient 6 mmHG AV mean gradient 4 mmHg DI (VTI) 0.6 m/2 DI (Vmax) 0.58 RHONDA (continuity Vmax) 1.31 cm2 RHONDA index (continuity Vmax) 0.83 m/s RHONDA (continuity VTI) 1.35 cm2 RHONDA index (continuity VTI) 0.85 cm2/m2 LVOT stroke volume 23 cm3 LVOT stroke volume index 14.87 ml/m2 Doppler Measurements - Mitral Valve Stenosis TV rest pulmonary artery pressure 31.8 mmHg Doppler Measurements - Tricuspid Valve Stenosis IVC ostium 1.46 cm Regurgitation TR pk maria elena 2.59 m/s TR pk grad 27 mmHg EST RAP 5 mmHg EST RVSP 32 mmHg Doppler Measurements - Pulmonic Valve Stenosis PV PK MARIA ELENA 0.72 m/s PV peak gradient 2 mmHg RVOT peak maria elena 0.59 m/s RVOT peak gradient 1 mmHg Vitals Height Weight BSA (Calculated - sq m) BP Pulse 1.549 m (5' 0.98) 59.3 kg (130 lb 12.8 oz) 1.58 m2 125/81 128 Performing Staff Ana Sandoval RDCS Study Details A complete echocardiography study (including color flow Doppler, spectral Doppler, M-mode and microbubbles) was performed. Contrast indication: evaluation of left ventricle contiguous segments. Study limitations include poor cardiac windows. Imaging system used: Siemens. Exam Details Performed Procedure Technologist Supporting Staff Performing Physician ECHOCARDIOGRAM STUDY DETAILS BILLING Ana Sandoval RDCS Appointment Date/Status Modality Department 04/14/2024 Arrived ECHO TESTING, (more content not included)... Normal [facility] EP CARDIOVERSION EXTERNALon 04-14-2024 EP CARDIOVERSION EXTERNAL Successful cardioversion of atrial fibrillation to normal sinus rhythm Recommendations: Continue anticoagulation Table formatting from the original result was not included. Elizabeth Steen Hung EP Procedure - EPS/Ablation/Device Ordering Physician: LANDON ADHIKARI Order #: [id number] Study Date: 04/13/2024 Patient Information Name MRN Description Elizabeth Persaud [id number] 78 y.o. female Physicians Panel Physicians Referring Physician Case Authorizing Physician VICKIE Hansen (Primary) DO Landon Ring MD Procedures Cardioversion Pre Procedure Diagnosis Atrial fibrillation, unspecified type [I48.91] Post Procedure Diagnosis Atrial fibrillation, unspecified type [I48.91] Indications Atrial fibrillation, unspecified type [I48.91 (ICD-10-CM)] Conclusion Successful cardioversion of atrial fibrillation to normal sinus rhythm Recommendations: Continue anticoagulation Consent The procedure was explained including the potential risks of infection, heart perforation, re-operation, and other risks pertinent to procedure. Informed consent and permission to proceed was given. Cardioversion/Defibrillatio n Arrhythmia Type: atrial fibrillation. Method of Cardioversion: synchronous cardioversion. The arrhythmia was terminated. Energy shock delivered: 200 joules. Time shock delivered: 13:36 EST. Post cardioversion rhythm: sinus rhythm. No early return to atrial fibrillation (ERAF). No immediate return to atrial fibrillation (IRAF). Implants No implant documentation for this case. Measurements BSA: 1.57 m2 Electrophysiology Lab Attending Physician Statement and Signature I personally preformed and/or personally supervised and was present for this entire procedure, including the review and interpretation of all electrophysiologic tracings acquired during the course of this study. The medications listed have been ordered by me, and have been administered under my direct supervision. Signed at 1519 EST ABN Associated with this Order There is no ABN associated with this order. Normal [facility] Successful cardiover ramírez of atrial fibrillation to normal sinus rhythm Recommendations: Continue anticoagulation [facility] EP CARDIOVERSION EXTERNALOrd ered By: Hai Tovar on 04-14-2024 Body surface area Derived from formula 1.57 m2 [facility] Work Phone: [facility] Work Phone: MAGNESIUMon 04-14-2024 Interpretation and review of laboratory results Normal [facility] Magnesium [Mass/Vol] 2.1 mg/dL 1.6 - 2 .6 mg/dL [facility] Magnesium [Mass/Vol] 2.1 mg/dL Normal 1.6-2.6 [facility] Comment on above: Performed By: #### U R #### [facility] (DEFAULT) [address] [place] [address] No Panel Informationon 04-14 [facility] CALCIUMon 04-13-2024 Calcium [Mass/Vol] 10.2 mg/dL 8.6 - 10. 5 mg/dL [facility] Interpretation and review of laboratory results Normal [facility] Calcium [Mass/Vol] 10.2 mg/dL Normal 8.6-10.5 [facility] Comment on above: Performed By: #### I PB, MGO, HDLT #### [facility] (DEFAULT) [address] [address] CBC AND ELECTRONIC DIFFon Basophils (Bld) [#/Vol] K/uL 0.00 - 0.15 K/uL [facility] Basophils/100 WBC (Bld) 0.3 % [facility] Differential cell count method Nom (Bld) Electronic Differential O [facility] Eosinophils (Bld) [#/Vol] 0.28 10*3/uL 0.00 - 0.42 K/uL [facility] Eosinophils/100 WBC (Bld) 3.1 % [facility] Erythrocyte distribution width (RBC) [Ratio] 12.3 % 10.8 - 14.9 % [facility] Hematocrit (Bld) [Volume fraction] 42.1 % 34.9 - 44.3 % [facility] Hemoglobin (Bld) [Mass/Vol] 13.9 g/dL 11.4 - 15.2 g/dL [facility] Immature granulocytes (Bld) [#/Vol] K/uL NINF - 0.08 K/uL [facility] Immature granulocytes/100 WBC (Bld) 0.2 % [facility] Lymphocytes (Bld) [#/Vol] 3.18 10*3/uL 1.16 - 3.51 K/uL [facility] Lymphocytes/100 WBC (Bld) 35.4 % [facility] MCH (RBC) [Entitic mass] 30.3 pg 25.9 - 33.9 pg [facility] MCHC (RBC) [Mass/Vol] 33.0 g/dL 31.4 - 35.9 g/dL [facility] MCV (RBC) [Entitic vol] 91.7 fL 79.6 - 97.7 fL [facility] Monocytes (Bld) [#/Vol] 0.73 10*3/uL 0.22 - 0.87 K/uL [facility] Monocytes/100 WBC (Bld) 8.1 % [facility] Neutrophils (Bld) [#/Vol] 4.74 10*3/uL 1.64 - 7.28 K/uL [facility] Nucleated RBC/100 WBC (Bld) [Ratio] 0.0 % NINF [facility] Platelet mean volume (Bld) [Entitic vol] 10.0 fL 8.5 - 12.2 fL [facility] Platelets (Bld) [#/Vol] 290 10*3/uL 150 - 393 K/uL [facility] RBC (Bld) [#/Vol] 4.59 10*6/uL [facility] Segmented neutrophils/100 WBC (Bld) 52.9 % [facility] WBC (Bld) [#/Vol] 8.98 10*3/uL 3.99 - 11.19 K/uL [facility] Abs Baso Auto < Normal 0.00-0.15 [facility] Comment on above: Performed By: #### L [id number] #### [facility] (DEFAULT) [address] [address] Basophils/100 WBC (Bld) 0.3 % Normal [facility] Comment on above: Performed By: #### L [id number] #### [facility] (DEFAULT) [address] [address] DIFF STATUS Electronic Differential Normal [facility] Comment on above: Performed By: #### L [id number] #### [facility] (DEFAULT) [address] [address] Eosinophils (Bld) [#/Vol] 0.28 10*3/uL Normal 0.00-0.42 [facility] Comment on above: Performed By: #### L [id number] #### [facility] (DEFAULT) [address] [address] Eosinophils/100 WBC (Bld) 3.1 % Normal [facility] Comment on above: Performed By: #### L [id number] #### [facility] (DEFAULT) [address] [place] [address] Hematocrit (Bld) [Volume fraction] 42.1 % Normal 34.9-44.3 [facility] Comment on above: Performed By: #### L [id number] #### [facility] (DEFAULT) [address] [address] Hemoglobin (Bld) [Mass/Vol] 13.9 g/dL Normal 11.4-15.2 [facility] Comment on above: Performed By: #### L [id number] #### [facility] (DEFAULT) [address] [address] Immature Grans % 0.2 % Normal [facility] Comment on above: Performed By: #### L [id number] #### [facility] (DEFAULT) [address] [address] Immature Grans Absolute < Normal <=0.08 [facility] Comment on above: Performed By: #### L [id number] #### [facility] (DEFAULT) [address] [address] Lymphocytes (Bld) [#/Vol] 3.18 10*3/uL Normal 1.16-3.51 [facility] Comment on above: Performed By: #### L [id number] #### [facility] (DEFAULT) [address] [address] Lymphocytes/100 WBC (Bld) 35.4 % Normal [facility] Comment on above: Performed By: #### L AB980 #### [facility] (DEFAULT) [address] [address] MCV (RBC) [Entitic vol] 91.7 fL Normal 79.6-97.7 [facility] Comment on above: Performed By: #### L AB980 #### [facility] (DEFAULT) [address] [address] Mean Cell Hgb 30.3 pg Normal 25.9-33.9 [facility] Comment on above: Performed By: #### L [id number] #### [facility] (DEFAULT) [address] [address] Mean Cell Hgb Conc 33.0 g/dL Normal 31.4-35.9 [facility] Comment on above: Performed By: #### L [id number] #### [facility] (DEFAULT) [address] [address] Monocytes (Bld) [#/Vol] 0.73 10*3/uL Normal 0.22-0.87 [facility] Comment on above: Performed By: #### L [id number] #### [facility] (DEFAULT) [address] [address] Monocytes/100 WBC (Bld) 8.1 % Normal [facility] Comment on above: Performed By: #### L [id number] #### [facility] (DEFAULT) [address] [address] Nucleated RBC 0.0 /100 WBC Normal <=0.2 [facility] Comment on above: Performed By: #### L [id number] #### [facility] (DEFAULT) [address] [place] [address] Platelet mean volume (Bld) [Entitic vol] 10.0 fL Normal 8.5-12.2 [facility] Comment on above: Performed By: #### L [id number] #### [facility] (DEFAULT) [address] [address] Platelets (Bld) [#/Vol] 290 10*3/uL Normal 150-393 [facility] Comment on above: Performed By: #### L [id number] #### [facility] (DEFAULT) [address] [address] RBC (Bld) [#/Vol] 4.59 10*6/uL Normal 3.91-5.04 [facility] Comment on above: Performed By: #### L [id number] #### [facility] (DEFAULT) [address] [address] RBC Distribution 12.3 % Normal 10.8-14.9 [facility] Comment on above: Performed By: #### L [id number] #### [facility] (DEFAULT) [address] [address] Segs + Bands Auto 52.9 % Normal [facility] Comment on above: Performed By: #### L [id number] #### [facility] (DEFAULT) [address] [address] Segs + Bands,Absolute Auto 4.74 K/uL Normal 1.64-7.28 [facility] Comment on above: Performed By: #### L [id number] #### [facility] (DEFAULT) [address] [address] WBC (Bld) [#/Vol] 8.98 10*3/uL Normal 3.99-11.19 [facility] Comment on above: Performed By: #### L [id number] #### [facility] (DEFAULT) [address] [place] [address] Basophils (Bld) [#/Vol] 0.04 10*3/uL 0.00 - 0.15 K/uL [facility] Basophils/100 WBC (Bld) 0.3 % [facility] Differential cell count method Nom (Bld) Electronic Differential [facility] Eosinophils (Bld) [#/Vol] 0.26 10*3/uL 0.00 - 0.42 K/uL [facility] Eosinophils/100 WBC (Bld) 2.2 % [facility] Erythrocyte distribution width (RBC) [Ratio] 12.2 % 10.8 - 14.9 % [facility] Hematocrit (Bld) [Volume fraction] 43.9 % 34.9 - 44.3 % [facility] Hemoglobin (Bld) [Mass/Vol] 14.7 g/dL 11.4 - 15.2 g/dL [facility] Immature granulocytes (Bld) [#/Vol] 0.05 10*3/uL NINF - 0.08 K/uL [facility] Immature granulocytes/100 WBC (Bld) 0.4 % [facility] Interpretation and review of laboratory results Abnormal [facility] Lymphocytes (Bld) [#/Vol] 3.45 10*3/uL 1.16 - 3.51 K/uL [facility] Lymphocytes/100 WBC (Bld) 29.6 % [facility] MCH (RBC) [Entitic mass] 30.4 pg 25.9 - 33.9 pg [facility] MCHC (RBC) [Mass/Vol] 33.5 g/dL 31.4 - 35.9 g/dL [facility] MCV (RBC) [Entitic vol] 90.7 fL 79.6 - 97.7 fL [facility] Monocytes (Bld) [#/Vol] 0.88 10*3/uL High 0.22 - 0.87 K/uL [facility] Monocytes/100 WBC (Bld) 7.5 % [facility] Neutrophils (Bld) [#/Vol] 6.99 10*3/uL 1.64 - 7.28 K/uL [facility] Nucleated RBC/100 WBC (Bld) [Ratio] 0.0 % [facility] Platelet mean volume (Bld) [Entitic vol] 10.2 fL 8.5 - 12.2 fL [facility] Platelets (Bld) [#/Vol] 301 10*3/uL 150 - 393 K/uL [facility] RBC (Bld) [#/Vol] 4.84 10*6/uL [facility] Segmented neutrophils/100 WBC (Bld) 60.0 % [facility] WBC (Bld) [#/Vol] 11.67 10*3/uL High 3.99 - 11.19 K/uL [facility] Basophils (Bld) [#/Vol] 0.04 10*3/uL Normal 0.00-0.15 [facility] Comment on above: Performed By: #### L [id number] #### [facility] (DEFAULT) [address] [place] [address] Basophils/100 WBC (Bld) 0.3 % Normal [facility] Comment on above: Performed By: #### L [id number] #### [facility] (DEFAULT) [address] [address] DIFF STATUS Electronic Differential Normal [facility] Comment on above: Performed By: #### L [id number] #### [facility] (DEFAULT) [address] [address] Eosinophils (Bld) [#/Vol] 0.26 10*3/uL Normal 0.00-0.42 [facility] Comment on above: Performed By: #### L AB980 #### [facility] (DEFAULT) [address] [address] Eosinophils/100 WBC (Bld) 2.2 % Normal [facility] Comment on above: Performed By: #### L [id number] #### [facility] (DEFAULT) [address] [address] Hematocrit (Bld) [Volume fraction] 43.9 % Normal 34.9-44.3 [facility] Comment on above: Performed By: #### L [id number] #### [facility] (DEFAULT) [address] [address] Hemoglobin (Bld) [Mass/Vol] 14.7 g/dL Normal 11.4-15.2 [facility] Comment on above: Performed By: #### L AB980 #### [facility] (DEFAULT) [address] [address] Immature Grans % 0.4 % Normal [facility] Comment on above: Performed By: #### L [id number] #### [facility] (DEFAULT) [address] [address] Immature Grans Absolute 0.05 K/uL Normal <=0.08 [facility] Comment on above: Performed By: #### L [id number] #### [facility] (DEFAULT) [address] [place] [address] Lymphocytes (Bld) [#/Vol] 3.45 10*3/uL Normal 1.16-3.51 [facility] Comment on above: Performed By: #### L [id number] #### [facility] (DEFAULT) [address] [place] [address] Lymphocytes/100 WBC (Bld) 29.6 % Normal [facility] Comment on above: Performed By: #### L [id number] #### [facility] (DEFAULT) [address] [address] MCV (RBC) [Entitic vol] 90.7 fL Normal 79.6-97.7 [facility] Comment on above: Performed By: #### L [id number] #### [facility] (DEFAULT) [address] [address] Mean Cell Hgb 30.4 pg Normal 25.9-33.9 [facility] Comment on above: Performed By: #### L AB980 #### [facility] (DEFAULT) [address] [address] Mean Cell Hgb Conc 33.5 g/dL Normal 31.4-35.9 [facility] Comment on above: Performed By: #### L AB980 #### [facility] (DEFAULT) [address] [address] Monocytes (Bld) [#/Vol] 0.88 10*3/uL High 0.22-0.87 [facility] Comment on above: Performed By: #### L AB980 #### [facility] (DEFAULT) [address] [address] Monocytes/100 WBC (Bld) 7.5 % Normal [facility] Comment on above: Performed By: #### L [id number] #### [facility] (DEFAULT) [address] [address] Nucleated RBC 0.0 /100 WBC Normal <=0.2 [facility] Comment on above: Performed By: #### L [id number] #### [facility] (DEFAULT) [address] [place] [address] Platelet mean volume (Bld) [Entitic vol] 10.2 fL Normal 8.5-12.2 [facility] Comment on above: Performed By: #### L [id number] #### [facility] (DEFAULT) [address] [address] Platelets (Bld) [#/Vol] 301 10*3/uL Normal 150-393 [facility] Comment on above: Performed By: #### L AB980 #### [facility] (DEFAULT) [address] [address] RBC (Bld) [#/Vol] 4.84 10*6/uL Normal 3.91-5.04 [facility] Comment on above: Performed By: #### L [id number] #### [facility] (DEFAULT) [address] [address] RBC Distribution 12.2 % Normal 10.8-14.9 [facility] Comment on above: Performed By: #### L AB980 #### [facility] (DEFAULT) [address] [address] Segs + Bands Auto 60.0 % Normal [facility] Comment on above: Performed By: #### L [id number] #### [facility] (DEFAULT) [address] [address] Segs + Bands,Absolute Auto 6.99 K/uL Normal 1.64-7.28 [facility] Comment on above: Performed By: #### L [id number] #### [facility] (DEFAULT) [address] [address] WBC (Bld) [#/Vol] 11.67 10*3/uL High 3.99-11.19 [facility] Comment on above: Performed By: #### L [id number] #### [facility] (DEFAULT) [address] [place] [address] CHEM 7 (LYTES,BUN,CREA,GLUC) on 04-13-2024 Anion gap [Moles/Vol] 21 mmol/L High 7 - 17 mmol/L [facility] Chloride [Moles/Vol] 97 mmol/L Low 98 - 10 8 mmol/L [facility] CO2 [Moles/Vol] 27 mmol/L 21 - 31 mmol/L [facility] Creatinine [Mass/Vol] 1.00 mg/dL 0.50 - 1.20 mg/dL [facility] eGFR, CKD-EPI, Female 60 Low - PINF [facility] Comment on above: Reported eGFR is bas ed on the CKD-EPI 2020 equation using creatinine, age, and sex. Glucose [Mass/Vol] 108 mg/dL High 70 - 99 mg/dL [facility] Osmolality Calc [Osmolality] 298 [facility] Potassium [Moles/Vol] 3.6 mmol/L 3.5 - 5.0 mmol/L [facility] Sodium [Moles/Vol] 141 mmol/L 135 - 145 mmol/L [facility] Urea nitrogen [Mass/Vol] 24 mg/dL 7 - 25 mg/dL [facility] Urea nitrogen/Creatinine [Mass ratio] 24 mg/mg [facility] Anion gap [Moles/Vol] 21 mmol/L High 7-17 [facility] Comment on above: Performed By: #### I PB MGO HDLT #### [facility] (DEFAULT) [address] [address] Chloride [Moles/Vol] 97 mmol/L Low 98-108 [facility] Comment on above: Performed By: #### I PB MGO HDLT #### [facility] (DEFAULT) [address] [place] [address] CO2 [Moles/Vol] 27 mmol/L Normal 21-31 [facility] Comment on above: Performed By: #### I PB MGO HDLT #### [facility] (DEFAULT) [address] [place] [address] Creatinine [Mass/Vol] 1.00 mg/dL Normal 0.50-1.20 [facility] Comment on above: Performed By: #### I PB, MGO, HDLT #### [facility] (DEFAULT) [address] [address] GFR/1.73 sq M.predicted among non-blacks MDRD (S/P/Bld) [Vol rate/Area] 58 mL/min/{1.73_m2} Low >=60 [facility] Comment on above: Result Comment: Repo rted eGFR is based on the CKD-EPI 2020 equation using creatinine, age, and sex. Performed By: #### I PB, MGO, HDLT #### [facility] (DEFAULT) [address] [address] Glucose [Mass/Vol] 108 mg/dL High 70-99 [facility] Comment on above: Performed By: #### I PB, MGO, HDLT #### [facility] (DEFAULT) [address] [place] [address] Osmolality [Osmolality] 298 mosm/kg Normal 278-305 [facility] Comment on above: Performed By: #### I PB, MGO, HDLT #### [facility] (DEFAULT) [address] [place] [address] Potassium [Moles/Vol] 3.6 mmol/L Normal 3.5-5.0 [facility] Comment on above: Performed By: #### I PB, MGO, HDLT #### [facility] (DEFAULT) [address] [place] [address] Sodium [Moles/Vol] 141 mmol/L Normal 135-145 [facility] Comment on above: Performed By: #### I PB, MGO, HDLT #### [facility] (DEFAULT) [address] [place] [address] Urea nitrogen [Mass/Vol] 24 mg/dL Normal 7-25 [facility] Comment on above: Performed By: #### I PB, MGO, HDLT #### [facility] (DEFAULT) [address] [place] [address] Urea nitrogen/Creatinine [Mass ratio] 24 mg/mg Normal [facility] Comment on above: Performed By: #### I PB, MGO, HDLT #### [facility] (DEFAULT) [address] [place] [address] EP CARDIOVERSION EXTERNALon 04-13-2024 Radiology Study observation (narrative) [facility] FERRITINon 04-13-2024 Ferritin [Mass/Vol] 113.0 ng/mL 7.3 - 270.7 ng/mL [facility] Interpretation and review of laboratory results Normal [facility] Ferritin [Mass/Vol] 113.0 ng/mL Normal 7.3-270.7 [facility] Comment on above: Performed By: #### I PB, MGO, HDLT #### [facility] (DEFAULT) [address] [place] [address] HEMOGLOBIN A1Con 04-13-2024 Average glucose Estimated from glycated hemoglobin (Bld) [Mass/Vol] 126 mg/dL [facility] HbA1c (Bld) [Mass fraction] 6.0 % High 4.7 - 5.6 % [facility] Interpretation and review of laboratory results Abnormal [facility] Glucose [Mass/Vol] 126 mg/dL Normal [facility] Comment on above: Performed By: #### I PB, MGO, HDLT #### [facility] (DEFAULT) [address] [place] [address] Hemoglobin A1C HPLC 6.0 % High 4.7-5.6 [facility] Comment on above: Performed By: #### I PB, MGO, HDLT #### [facility] (DEFAULT) [address] [place] [address] HEPATIC FUNCTION PANELon Albumin [Mass/Vol] 4.4 g/dL 3.5 - 5.0 g/dL [facility] ALP [Catalytic activity/Vol] 91 U/L 32 - 126 U/L [facility] ALT [Catalytic activity/Vol] 28 U/L 9 - 48 U/L [facility] AST [Catalytic activity/Vol] 35 U/L 10 - 39 U/L [facility] Bilirubin [Mass/Vol] 1.1 mg/dL NINF - 1.5 mg/dL [facility] Bilirubin.direct [Mass/Vol] 0.3 mg/dL High NINF - 0.3 mg/dL [facility] Comment on above: Specimen hemolyzed. Direct bilirubin results may be falsely decreased. Interpret within the clinical context. Protein [Mass/Vol] 7.8 g/dL 6.4 - 8.3 g/dL [facility] Albumin [Mass/Vol] 4.4 g/dL Normal 3.5-5.0 [facility] Comment on above: Performed By: #### I PB, MGO, HDLT #### [facility] (DEFAULT) [address] [address] ALP [Catalytic activity/Vol] 91 U/L Normal 32-126 [facility] Comment on above: Performed By: #### I PB, MGO, HDLT #### [facility] (DEFAULT) [address] [address] ALT [Catalytic activity/Vol] 28 U/L Normal 9-48 [facility] Comment on above: Performed By: #### I PB, MGO, HDLT #### [facility] (DEFAULT) [address] [address] AST [Catalytic activity/Vol] 35 U/L Normal 10-39 [facility] Comment on above: Performed By: #### I PB, MGO, HDLT #### [facility] (DEFAULT) [address] [address] Bilirubin [Mass/Vol] 1.1 mg/dL Normal <1.5 [facility] Comment on above: Performed By: #### I PB, MGO, HDLT #### [facility] (DEFAULT) [address] [place] [address] Bilirubin.indirect [Mass/Vol] 0.3 mg/dL High <0.3 [facility] Comment on above: Result Comment: Spec imen hemolyzed. Direct bilirubin results may be falsely decreased. Interpret within the clinical context. Performed By: #### I PB, MGO, HDLT #### [facility] (DEFAULT) [address] [address] Protein [Mass/Vol] 7.8 g/dL Normal 6.4-8.3 [facility] Comment on above: Performed By: #### I PB, MGO, HDLT #### [facility] (DEFAULT) [address] [place] [address] IRON/IRON BINDING/TRANSFERRI Non 04-13-2024 Iron [Mass/Vol] 75 ug/dL [facility] Iron binding capacity [Mass/Vol] 423 [facility] Iron saturation [Mass fraction] 18 % Low 20 - 55 % [facility] Transferrin [Mass/Vol] 338 mg/dL 200 - 400 mg/dL [facility] Iron [Mass/Vol] 75 ug/dL Normal 40-174 [facility] Comment on above: Performed By: #### I PB, MGO, HDLT #### [facility] (DEFAULT) [address] [place] [address] Iron Saturation 18 % Low 20-55 [facility] Comment on above: Performed By: #### I PB, MGO, HDLT #### [facility] (DEFAULT) [address] [place] [address] Total Iron Binding Capacity 423 mcg/dL Normal 250-425 [facility] Comment on above: Performed By: #### I PB, MGO, HDLT #### [facility] (DEFAULT) [address] [place] [address] Transferrin [Mass/Vol] 338 mg/dL Normal 200-400 [facility] Comment on above: Performed By: #### I PB, MGO, HDLT #### [facility] (DEFAULT) [address] [place] [address] LIPID PANEL W CALCULATED LDL on 04-13-2024 Cholesterol [Mass/Vol] 212 mg/dL High NINF - 200 mg/dL [facility] Comment on above: [<200 mg/dL: Desirab le] [200-239 mg/dL: Borderline High] [>239 mg/dL: High] Cholesterol in HDL [Mass/Vol] 67 mg/dL 40 - PINF mg/dL [facility] Comment on above: [<40 mg/dL: Low (Hig h Risk)] [>59 mg/dL: High (Low Risk)] Cholesterol in LDL [Mass/Vol] 128 mg/dL High 0 - 99 mg/dL [facility] Comment on above: [<100 mg/dL: Optimal ] [100-129 mg/dL: Near Optimal] [130-159 mg/dL: Borderline High] [160-189 mg/dL: High] [>189 mg/dL: Very High] Cholesterol non HDL [Mass/Vol] 145 mg/dL High NINF - 130 mg/dL [facility] Cholesterol.total/Chol esterol in HDL [Mass ratio] 3.2 {ratio} NINF - 4.5 [facility] Interpretation and review of laboratory results Abnormal [facility] Triglyceride [Mass/Vol] 84 mg/dL NINF - 150 mg/dL [facility] Comment on above: [<150 mg/dL: Desirab le] [150-199 mg/dL: Borderline] [200-499 mg/dL: High] [>500 mg/dL: Very High] Calculated LDL Cholesterol 128 mg/dL High 0-99 [facility] Comment on above: Order Comment: IF NO T DONE IN THE E.D. SHOULD BE FASTING PRIOR TO DRAW. Result Comment: [<10 0 mg/dL: Optimal] [100-129 mg/dL: Near Optimal] [130-159 mg/dL: Borderline High] [160-189 mg/dL: High] [>189 mg/dL: Very High] Performed By: #### I PB, MGO, HDLT #### [facility] (DEFAULT) [address] [place] [address] Cholesterol [Mass/Vol] 212 mg/dL High <200 [facility] Comment on above: Order Comment: IF NO T DONE IN THE E.D. SHOULD BE FASTING PRIOR TO DRAW. Result Comment: [<20 0 mg/dL: Desirable] [200-239 mg/dL: Borderline High] [>239 mg/dL: High] Performed By: #### I PB, MGO, HDLT #### [facility] (DEFAULT) [address] [address] Cholesterol in HDL [Mass/Vol] 67 mg/dL Normal >=40 [facility] Comment on above: Order Comment: IF NO T DONE IN THE E.D. SHOULD BE FASTING PRIOR TO DRAW. Result Comment: [<40 mg/dL: Low (High Risk)] [>59 mg/dL: High (Low Risk)] Performed By: #### I PB, MGO, HDLT #### [facility] (DEFAULT) [address] [address] Non HDL Cholesterol 145 mg/dL High <130 [facility] Comment on above: Order Comment: IF NO T DONE IN THE E.D. SHOULD BE FASTING PRIOR TO DRAW. Performed By: #### I PB, MGO, HDLT #### [facility] (DEFAULT) [address] [address] Total Cholesterol/HDL Ratio 3.2 Normal <4.5 [facility] Comment on above: Order Comment: IF NO T DONE IN THE E.D. SHOULD BE FASTING PRIOR TO DRAW. Performed By: #### I PB, MGO, HDLT #### [facility] (DEFAULT) [address] [address] Triglyceride [Mass/Vol] 84 mg/dL Normal <150 [facility] Comment on above: Order Comment: IF NO T DONE IN THE E.D. SHOULD BE FASTING PRIOR TO DRAW. Result Comment: [<15 0 mg/dL: Desirable] [150-199 mg/dL: Borderline] [200-499 mg/dL: High] [>500 mg/dL: Very High] Performed By: #### I ABRIL ANDREA HDLT #### [facility] (DEFAULT) [address] [place] [address] MAGNESIUMon 04-13-2024 Magnesium [Mass/Vol] 2.0 mg/dL 1.6 - 2 .6 mg/dL [facility] Magnesium [Mass/Vol] 2.0 mg/dL Normal 1.6-2.6 [facility] Comment on above: Performed By: #### I ABRIL ANDREA HDLT #### [facility] (DEFAULT) [address] [place] [address] NT-PRO B-TYPE NATRIURETIC PE PTIDEon 04-13-2024 Interpretation and review of laboratory results Abnormal [facility] Natriuretic peptide.B prohormone N-Terminal IA [Mass/Vol] 4593 pg/mL High NINF - 540 pg/mL [facility] Natriuretic peptide B (Bld) [Mass/Vol] 4593 pg/mL High <=540 [facility] Comment on above: Order Comment: If no t done in the ED. Performed By: #### I ABRIL ANDREA HDLT #### [facility] (DEFAULT) [address] [place] [address] No Panel Informationon 04-13 Interpretation and review of laboratory results Abnormal [facility] Interpretation and review of laboratory results Normal [facility] PHOSPHATE, INORGANICon 04-13 Phosphate [Mass/Vol] 4.1 mg/dL 2.2 - 4 .6 mg/dL [facility] Phosphorous 4.1 mg/dL Normal 2.2-4.6 [facility] Comment on above: Performed By: #### I ABRIL ANDREA HDLT #### [facility] (DEFAULT) [address] [place] [address] PTTon 04-13-2024 aPTT Coag (PPP) [Time] 56.1 s High [facility] Interpretation and review of laboratory results Abnormal [facility] aPTT Coag (Bld) [Time] 56.1 s High 24.0-34.3 [facility] Comment on above: Order Comment: After initiation a PTT should be checked every 6 hours from time of last dose change or, if dose has not changed, 6 hours after last PTT result posted.? The frequent monitoring should occur until PTT in goal range for two consecutive lab draws without dose changes at which time PTTs may be checked no less frequently than every 12 hours.? If dose requires a change, PTT should be monitored at least every 6 hours until titration is no longer indicated, then as directed above.? If PTT above goal range refer to medication administration instructions. Performed By: #### I ABRIL ANDREA HDLT #### [facility] (DEFAULT) [address] [place] [address] aPTT Coag (Bld) [Time] 43.9 s High 24.0-34.3 [facility] Comment on above: Order Comment: After initiation a PTT should be checked every 6 hours from time of last dose change or, if dose has not changed, 6 hours after last PTT result posted.? The frequent monitoring should occur until PTT in goal range for two consecutive lab draws without dose changes at which time PTTs may be checked no less frequently than every 12 hours.? If dose requires a change, PTT should be monitored at least every 6 hours until titration is no longer indicated, then as directed above.? If PTT above goal range refer to medication administration instructions.Results inconsistent with previous results Performed By: #### I ABRIL ANDREA HDLT #### [facility] (DEFAULT) [address] [place] [address] aPTT Coag (PPP) [Time] 28.4 s [facility] Interpretation and review of laboratory results Normal [facility] aPTT Coag (Bld) [Time] 28.4 s Normal 24.0-34.3 [facility] Comment on above: Order Comment: Draw prior to initiation of intravenous Heparin. Performed By: #### P TT #### [facility] (DEFAULT) [address] [place] [address] PTTOrdered By: Kiera Mann on 04-13-2024 aPTT Coag (PPP) [Time] 43.9 s High [facility] Interpretation and review of laboratory results Abnormal [facility] Results inconsistent with previous results [facility] Portable XR Chest Viewson IMPRESSION: Chronic changes as described above without evidence of acute cardiopulmonary disease. OLOGY EXAM: XR CHEST 1 VIE W PORTABLE, 04/13/2024 01:23 AM CLINICAL INDICATIONS: sob RELEVANT CLINICAL HISTORY: COMPARISON: No prior studies available for comparison. FINDINGS: Anterior fusion hardware at the base of the cervical spine. No pneumothorax. Clear lungs. Normal heart size. Atherosclerotic calcifications in the aorta. No pulmonary edema. Scoliosis and degenerative change of the thoracic spine. Degenerative change in the shoulders. RADIOLOGY Makr Gao M D, PhD - 04/13/2024 EXAM: XR CHEST 1 VIEW PORTABLE, 04/13/2024 01:23 AM CLINICAL INDICATIONS: sob RELEVANT CLINICAL HISTORY: COMPARISON: No prior studies available for comparison. FINDINGS: Anterior fusion hardware at the base of the cervical spine. No pneumothorax. Clear lungs. Normal heart size. Atherosclerotic calcifications in the aorta. No pulmonary edema. Scoliosis and degenerative change of the thoracic spine. Degenerative change in the shoulders. IMPRESSION IMPRESSION: Chronic changes as described above without evidence of acute cardiopulmonary disease. [facility] Radiology Study observation (narrative) [facility] Portable XR Chest ViewsOrder ed By: Mark Gao on 04-13-2024 [facility] Work Phone: TSH W/FT4 REFLEXon Interpretation and review of laboratory results Normal [facility] TSH Qn 4.349 m[IU]/L [facility] TSH 4.349 uIU/mL Normal 0.550-4.78 0 [facility] Comment on above: Performed By: #### I PB, O, HDLT #### [facility] (DEFAULT) [address] [place], [place] [id number] XR CHEST 1 VIEW PORTABLEon 1 06-14-2023 XR CHEST 1 VIEW PORTABLE EXAM: XR CHEST 1 VIEW PORTABLE, 04/13/2024 01:23 AM CLINICAL INDICATIONS: sob RELEVANT CLINICAL HISTORY: COMPARISON: No prior studies available for comparison. FINDINGS: Anterior fusion hardware at the base of the cervical spine. No pneumothorax. Clear lungs. Normal heart size. Atherosclerotic calcifications in the aorta. No pulmonary edema. Scoliosis and degenerative change of the thoracic spine. Degenerative change in the shoulders. IMPRESSION: Chronic changes as described above without evidence of acute cardiopulmonary disease. Normal [facility] 12 Lead EKGon 04-12-2024 12 Lead EKG [facility] Cardiovascular Services [address] [place] [address] 12 Lead EKG 04/12/24 1111 MR#: [id number] Acct: [id number] Name: ELIZABETH PERSAUD Rep #: [id number] : 1945 78 From: Manuel Reyes MD Attending Dr: Status: DEP ER Ordering Dr: Janes Zamudio DO Date: 04/12/24 Location: ED Sex: F C Admitted: Test Reason : SOB Blood Pressure : */* mmHG Vent. Rate : 143 BPM Atrial Rate : * BPM P-R Int : * ms QRS Dur : 74 ms QT Int : 334 ms P-R-T Axes : * -36 255 degrees QTcB Int : 515 ms Critical Test Result: High HR Atrial fibrillation with rapid ventricular response with premature ventricular or aberrantly conducted complexes Left axis deviation ST T wave abnormality, consider anterolateral ischemia Abnormal ECG Confirmed by Manuel Reyes ([id number]), book or script editor ADVID CONNOLLY ([id number]) on 04/14/2024 5:54:41 AM Referred By: JERRY/ERICK Confirmed By: Manuel Reyes 04/14/24 0554 Date Manuel Reyes MD CC: Dr. Minerva Shaver MD; Dr. Janes Zamudio, DO Signed Normal [facility] Absolute neutrophil countOrd ered By: Janes Zamudio on 04-12-2024 Neutrophils (Bld) [#/Vol] 5.2 10*3/uL 2.0-7.[address] [facility] BNP (brain natriuretic pepti de measurement)Ordered By: Janes Zamudio on 04-12-2024 Natriuretic peptide B (Bld) [Mass/Vol] 394.1 pg/mL High 0-[address] [facility] BNP,B-Type NATRIURETIC PEPTI Trent 04-12-2024 Natriuretic peptide B (Bld) [Mass/Vol] 394.1 pg/mL High 0-[address] [facility] Comment on above: Performed By: #### L 100.0100, L503.6620, L500.2500, L501.5200, L501.4020 ####[facility] [address] [place], [address] Basic Metabolic Profile (BMP )on 04-12-2024 BUN/CRE 26.0 RATIO High 10-[address] [facility] Comment on above: Order Comment: 'TROP ' Serial specimen #1, #2 or #3: 1 Performed By: #### L 100.0100, L503.6620, L500.2500, L501.5200, L501.4020 ####[facility] [address] [place], [address] CA,Total 9.8 mg/dL Normal 8.5-10.[address] [facility] Comment on above: Order Comment: 'TROP ' Serial specimen #1, #2 or #3: 1 Performed By: #### L 100.0100, L503.6620, L500.2500, L501.5200, L501.4020 ####[facility] [address] [place], [address] Chloride [Moles/Vol] 101 mmol/L Normal 98-107 [facility] Comment on above: Order Comment: 'TROP ' Serial specimen #1, #2 or #3: 1 Performed By: #### L 100.0100, L503.6620, L500.2500, L501.5200, L501.4020 ####[facility] [address] [place], [address] CO2 [Moles/Vol] 33.0 mmol/L High 21.0-32.[address] [facility] Comment on above: Order Comment: 'TROP ' Serial specimen #1, #2 or #3: 1 Performed By: #### L 100.0100, L503.6620, L500.2500, L501.5200, L501.4020 ####[facility] [address] [place], [address] Creatinine [Mass/Vol] 1.04 mg/dL High 0.55-1.02 [facility] Comment on above: Order Comment: 'TROP ' Serial specimen #1, #2 or #3: 1 Result Comment: The validity of the calculated GFR GFRAA in patients over 70 years has not been determined. Clinical correlation is essential. Performed By: #### L 100.0100, L503.6620, L500.2500, L501.5200, L501.4020 ####[facility] [address] [place], [address] ECRCL 38.36 ml/min Normal [facility] Comment on above: Order Comment: 'TROP ' Serial specimen #1, #2 or #3: 1 Performed By: #### L 100.0100, L503.6620, L500.2500, L501.5200, L501.4020 ####[facility] [address] [place], [address] EST GFR - AA 66 mL/min Normal >[address] [facility] Comment on above: Order Comment: 'TROP ' Serial specimen #1, #2 or #3: 1 Result Comment: Afri can Fijian GFR Calc Performed By: #### L 100.0100, L503.6620, L500.2500, L501.5200, L501.4020 ####[facility] [address] [place], [address] GAP 6 Normal 5-[address] [facility] Comment on above: Order Comment: 'TROP ' Serial specimen #1, #2 or #3: 1 Performed By: #### L 100.0100, L503.6620, L500.2500, L501.5200, L501.4020 ####[facility] [address] [place], [address] GFR/1.73 sq M.predicted among non-blacks MDRD (S/P/Bld) [Vol rate/Area] 55 mL/min/{1.73_m2} Low >[address] [facility] Comment on above: Order Comment: 'TROP ' Serial specimen #1, #2 or #3: 1 Result Comment: Non- GFR Calc Performed By: #### L 100.0100, L503.6620, L500.2500, L501.5200, L501.4020 ####[facility] [address] [place], [address] Glucose [Mass/Vol] 106 mg/dL Normal 74-106 [facility] Comment on above: Order Comment: 'TROP ' Serial specimen #1, #2 or #3: 1 Result Comment: Fast ing Glucose result from 100 to 125 mg/dL suggests IMPAIRED HOMEOSTASIS per A.D.A. criteria. Performed By: #### L 100.0100, L503.6620, L500.2500, L501.5200, L501.4020 ####[facility] [address] [place], [address] Potassium [Moles/Vol] 3.6 mmol/L Normal 3.5-5.1 [facility] Comment on above: Order Comment: 'TROP ' Serial specimen #1, #2 or #3: 1 Performed By: #### L 100.0100, L503.6620, L500.2500, L501.5200, L501.4020 ####[facility] [address] [place], [address] Sodium [Moles/Vol] 140 mmol/L Normal 136-145 [facility] Comment on above: Order Comment: 'TROP ' Serial specimen #1, #2 or #3: 1 Performed By: #### L 100.0100, L503.6620, L500.2500, L501.5200, L501.4020 ####[facility] [address] [place], [address] Urea nitrogen [Mass/Vol] 27 mg/dL High 7-[address] [facility] Comment on above: Order Comment: 'TROP ' Serial specimen #1, #2 or #3: 1 Performed By: #### L 100.0100, L503.6620, L500.2500, L501.5200, L501.4020 ####[facility] [address] [place], [address] Basophil percentageOrdered B y: Janes Zamudio on 04-12-2024 Basophils/100 WBC (Bld) 0.5 % 0-[address] [facility] Blood urea nitrogen (BUN)/cr eatinine ratioOrdered By: Janes Zamudio on 04-12-2024 Urea nitrogen/Creatinine [Mass ratio] 26.0 mg/mg High 10-[address] [facility] CBC W/Diff, Automatedon 12- Absolute Lymph 2.33 X10 3/uL Normal 0.83-4.[address] [facility] Comment on above: Performed By: #### L 100.0100, L503.6620, L500.2500, L501.5200, L501.4020 ####[facility] [address] [place], [address] Absolute Neut 5.2 X10 3/uL Normal 2.0-7.[address] [facility] Comment on above: Performed By: #### L 100.0100, L503.6620, L500.2500, L501.5200, L501.4020 ####[facility] [address] [place], [address] Basophils/100 WBC (Bld) 0.5 % Normal 0-[address] [facility] Comment on above: Performed By: #### L 100.0100, L503.6620, L500.2500, L501.5200, L501.4020 ####[facility] [address] [place], [address] Eosinophils/100 WBC (Bld) 2.7 % Normal 0-[address] [facility] Comment on above: Performed By: #### L 100.0100, L503.6620, L500.2500, L501.5200, L501.4020 ####[facility] [address] [place], [address] Erythrocyte distribution width (RBC) [Ratio] 12.4 % Normal 11.6-14.[address] [facility] Comment on above: Performed By: #### L 100.0100, L503.6620, L500.2500, L501.5200, L501.4020 ####[facility] [address] [place], [address] Hematocrit (Bld) [Volume fraction] 40.1 % Normal 37-[address] [facility] Comment on above: Performed By: #### L 100.0100, L503.6620, L500.2500, L501.5200, L501.4020 ####[facility] [address] [place], [address] Hemoglobin (Bld) [Mass/Vol] 13.3 g/dL Normal 12.0-15.[address] [facility] Comment on above: Performed By: #### L 100.0100, L503.6620, L500.2500, L501.5200, L501.4020 ####[facility] [address] [place], [address] IG% 0.200 Normal 0.0-0.[address] [facility] Comment on above: Result Comment: IG% - Immature Granulocytes (promyelocytes, myelocytes and metamyelocytes) > 1% indicates that a LEFT SHIFT is Present. Performed By: #### L 100.0100, L503.6620, L500.2500, L501.5200, L501.4020 ####[facility] [address] [place], [address] Lymphocytes/100 WBC (Bld) 27.5 % Normal 19-[address] [facility] Comment on above: Performed By: #### L 100.0100, L503.6620, L500.2500, L501.5200, L501.4020 ####[facility] [address] [place], [address] MCH (RBC) [Entitic mass] 30.5 pg Normal 27.0-32.[address] [facility] Comment on above: Performed By: #### L 100.0100, L503.6620, L500.2500, L501.5200, L501.4020 ####[facility] [address] [place], [address] MCHC (RBC) [Mass/Vol] 33.2 g/dL Normal 32-36 [facility] Comment on above: Performed By: #### L 100.0100, L503.6620, L500.2500, L501.5200, L501.4020 ####[facility] [address] [place], [address] MCV (RBC) [Entitic vol] 92.0 fL Normal 81-[address] [facility] Comment on above: Performed By: #### L 100.0100, L503.6620, L500.2500, L501.5200, L501.4020 ####[facility] [address] [place], [address] Monocytes/100 WBC (Bld) 8.0 % Normal 0-[address] [facility] Comment on above: Performed By: #### L 100.0100, L503.6620, L500.2500, L501.5200, L501.4020 ####[facility] [address] [place], [address] Neutrophils/100 WBC (Bld) 61.1 % Normal 47-[address] [facility] Comment on above: Performed By: #### L 100.0100, L503.6620, L500.2500, L501.5200, L501.4020 ####[facility] [address] [place], [address] Nucleated RBC (Bld) [#/Vol] 0 10*3/uL Normal 0-[address] [facility] Comment on above: Performed By: #### L 100.0100, L503.6620, L500.2500, L501.5200, L501.4020 ####[facility] [address] [place], [address] Platelet mean volume (Bld) [Entitic vol] 10.1 fL Normal 6.2-12.[address] [facility] Comment on above: Performed By: #### L 100.0100, L503.6620, L500.2500, L501.5200, L501.4020 ####[facility] [address] [place], [address] Platelets (Bld) [#/Vol] 280 10*3/uL Normal 150-[address] [facility] Comment on above: Performed By: #### L 100.0100, L503.6620, L500.2500, L501.5200, L501.4020 ####[facility] [address] [place], [address] RBC (Bld) [#/Vol] 4.36 10*6/uL Normal 4.2-5.4 [facility] Comment on above: Performed By: #### L 100.0100, L503.6620, L500.2500, L501.5200, L501.4020 ####[facility] [address] [place], [address] RDW SD 42.1 fl Normal 35.1-43.[address] [facility] Comment on above: Performed By: #### L 100.0100, L503.6620, L500.2500, L501.5200, L501.4020 ####[facility] [address] [place], [address] WBC (Bld) [#/Vol] 8.5 10*3/uL Normal 4.4-11.0 [facility] Comment on above: Performed By: #### L 100.0100, L503.6620, L500.2500, L501.5200, L501.4020 ####[facility] [address] [place], [address] Carbon dioxide measurementOr dered By: Janes Zamudio on 04-12-2024 CO2 [Moles/Vol] 33.0 mmol/L High 21.0-32.[address] [facility] Chest 1 View (Portable)on Chest 1 View (Portable) [facility] Imaging Services [address] [place] [address] Chest 1 View (Portable) MR#: [id number] Acct: [id number] Name: ELIZABETH PERSAUD Rep #: [id number] : 1945 F 78 From: Arnulfo jacob MD PCP: Dr. Minerva Shaver MD Status: REG ER Study: Chest 1 View (Portable) Date of Exam: 04/12/24 Exam# [id number] Ordering Dr: Janes Zamudio DO [id number] STUDY: X-RAY CHEST REASON FOR EXAM: Female, 78 years old. chf TECHNIQUE: Single AP portable view of the chest. COMPARISON: March 24, 2024 FINDINGS: 1. No demonstrated new focus of consolidation. 2. There are interstitial fibrotic changes of the lungs. There is no demonstrated pleural abnormality. 3. No pleural effusion is present. 4. Normal heart size 5. Stable mediastinum and osseous structures 6. COPD/emphysema There is no demonstrated abnormality of the visualized soft tissue structures of the upper abdomen. RAD/Chest 1 View (Portable) IMPRESSION: COPD/emphysema Electronically Signed: Arnulfo Tolentino MD at 12:36 EST Reading Location ID and State: [facility] / [place] , Service support , CC: Dr. Minerva Shaver MD; Dr. Janes Zamudio DO [employer] Certified Network Associate: Signed Normal [facility] Chloride measurementOrdered By: Janes Zamudio on 04-12-2024 Chloride [Moles/Vol] 101 mmol/L 98-107 [facility] Emergency Department Summary on 04-12-2024 Emergency Department Summary [facility] Medical Records Department [address] [place] [address] Emergency Department Summary 04/12/24 MR#: [id number] Acct: [id number] Name: ELIZABETH PERSAUD Rep #: [id number] : 1945 78 From: Janes Zamudio DO PCP: Dr. Minerva Shaver MD Status:REG ER Location: ED HPI History of Present Illness Chief Complaint: Shortness of Breath Informant: patient Narrative Narrative: 78-year-old female history of atrial fibrillation on Eliquis and metoprolol as well as heart failure with preserved ejection fraction presenting to the emergency room shortness of breath. Patient notes over the past several weeks she has had worsening shortness of breath. She notes a cough and some slight weight gain of a couple pounds. She states she has been working with her doctor and is increased her Lasix. Patient states that she is at some point supposed to have a EP study at [facility]. Patient states that she is started to use her home oxygen but has not had to use it for several years. She typically takes her metoprolol at 12:30 AM and p.m. due to working second shift. She notes that her heart has been racing all morning. Patient notes allergy to Cardizem as well as amiodarone. There was some discussion that she was to be on Tikosyn. She is possibly on flecainide. [facility] Medical History Osteoarthritis of right hip Right hip pain Hamstring muscle strain Left hip pain Acute stroke due to ischemia Tubular adenoma of colon URI (upper respiratory infection) Chronic neck and back pain Difficulty balancing when standing Abnormal bruising Diarrhea Chest pain Heart disease Shoulder pain SOB (shortness of breath) Cancer History of DVT (deep vein thrombosis) Arthritis Panlobular emphysema Atrial fibrillation Hypertension Rotator cuff tear Tendonitis of shoulder, right Carpal tunnel syndrome Calculus of kidney Moses's esophagus Paroxysmal atrial fibrillation Chronic diastolic (congestive) heart failure residential (current) use of anticoagulants Cardiomyopathy in other diseases classified elsewhere Nonrheumatic aortic valve stenosis Non-rheumatic tricuspid valve insufficiency Scoliosis of cervical spine GERD (gastroesophageal reflux disease) Home Medications ???Medication ???Instructions ???Recorded ???Last Taken ???Type multivitamin with folic acid 400 1 tab PO DAILY supplement 03/15/13 10/31/18 07:00 History mcg tablet calcium carbonate 500 mg PO DAILY Check with primary 06/25/21 Unknown History doctor cyclobenzaprine 10 mg tablet 10 mg PO HS PRN muscle spasm 07/25/22 Unknown History sucralfate 100 mg/mL oral 10 ml PO ACHS 12/31/22 Unknown History suspension potassium chloride 20 mEq 20 meq PO .COMPLEX #180 tabs 01/27/23 Unknown Rx tablet,extended release(part/cryst) apixaban 5 mg tablet 5 mg PO BID #180 tabs 06/16/23 01/15/24 Rx diclofenac sodium 75 mg 75 mg PO Q OTHER DAY 08/11/23 Unknown History tablet,delayed release fluticasone fur. 100 mcg-umeclid 1 ea inhalation QDAY 08/11/23 Unknown History 62.5 mcg-vilant 25 mcg inhalat.powder (Trelegy Ellipta) fluticasone propionate 50 2 spray intranasal QDAY PRN 08/11/23 Unknown History mcg/actuation nasal allergy symptoms spray,suspension melatonin 5 mg tablet 10 mg PO HS PRN insomnia 08/11/23 Unknown History empagliflozin 10 mg tablet 10 mg PO DAILY #90 tabs 12/03/23 Unknown Rx (Jardiance) omeprazole 40 mg capsule,delayed 40 mg PO QDAY 12/22/23 Unknown History release metoprolol succinate 25 mg 50 mg PO BID Dose decreased, pt 03/16/24 Unknown History tablet,extended release 24 hr wants 25 mg tablets spironolactone 25 mg tablet 25 mg PO DAILY #30 tabs 03/24/24 Unknown Rx ondansetron 4 mg disintegrating 4 mg PO Q8H PRN nausea and 03/26/24 Unknown Rx tablet vomiting #7 tabs flecainide 100 mg tablet 100 mg PO BID 04/12/24 Unknown History furosemide 40 mg tablet 60 mg (1.5 x 40 mg) PO BID 90 days 04/12/24 Unknown Rx #270 tabs metoprolol succinate 50 mg 50 mg PO BID 04/12/24 Unknown History tablet,extended release 24 hr Allergy/AdvReac Type Severity Reaction Status Date / Time etodolac Allergy Intermediate Other Verified 04/12/24 10:53 diltiazem HCl (From Cardizem) Allergy Swelling Verified 04/12/24 10:53 of face and neck naproxen Allergy Swelling Verified 04/12/24 10:53 (whole body) prednisone Allergy Other Verified 04/12/24 10:53 amiodarone AdvReac Severe Severe Verified 04/12/24 10:53 dyspnea after taking PO Amiodarone adhesive AdvReac Rash Verified 04/12/24 10:53 albuterol AdvReac Other Verified 04/12/24 10:53 codeine AdvReac Vomiting Verified 04/12/24 10:53 hydrocodone bitartrate (From AdvReac Vomiting Verified 04/12/24 10:53 Vicodin) m (more content not included)... Normal [facility] Eosinophil percentageOrdered By: Janes Zamudio on 04-12-2024 Eosinophils/100 WBC (Bld) 2.7 % 0-[address] [facility] Erythrocyte distribution wid th ratioOrdered By: Janes Zamudio on 04-12-2024 Erythrocyte distribution width (RBC) [Ratio] 12.4 % 11.6-14.[address] [facility] Erythrocyte distribution wid th standard deviationOrdered By: Janes Zamudio on 04-12-2024 Erythrocyte distribution width (RBC) [Entitic vol] 42.1 fL 35.1-43.[address] [facility] Estimated glomerular filtrat ion rate (GFR) AmericanOrdered By: Janes Zamudio on 04-12-2024 Estimated GFR (MDRD) Amer 66 mL/min >[address] [facility] Comment on above: GFR Calc Estimation of creatinine shirin aranceOrdered By: Janes Zamudio on 04-12-2024 Estimated Creatinine Clearance Calc 38.36 ml/min [facility] Glomerular filtration rate ( GFR) estimationOrdered By: Janes Zamudio on 04-12-2024 Estimated GFR (MDRD) Non-Af Amer 55 mL/min Low >[address] [facility] Comment on above: Non- GFR Calc Glucose measurementOrdered B y: Janes Zamudio on 04-12-2024 Glucose [Mass/Vol] 106 mg/dL 74-106 [facility] Comment on above: Fasting Glucose resu lt from 100 to 125 mg/dL suggests IMPAIRED HOMEOSTASIS per A.D.A. criteria. Hematocrit Auto (Bld) [Volum e fraction]Ordered By: Janes Zamudio on 04-12-2024 Hematocrit (Bld) [Volume fraction] 40.1 % 37-[address] [facility] Hemoglobin measurementOrdere d By: Janes Zamudio on 04-12-2024 Hemoglobin (Bld) [Mass/Vol] 13.3 g/dL 12.0-15.[address] [facility] Immature granulocytes/100 WB C Auto (Bld)Ordered By: Janes Zamudio on 04-12-2024 Immature granulocytes/100 WBC (Bld) 0.200 % 0.0-0.[address] [facility] Comment on above: IG% - Immature Granu locytes (promyelocytes, myelocytes and metamyelocytes) > 1% indicates that a LEFT SHIFT is Present. L501.4020on 04-12-2024 TROPONIN-I HS 8 pg/mL Normal 3.0-54.[address] [facility] Comment on above: Order Comment: 'TROP ' Serial specimen #1, #2 or #3: 1 Result Comment: Jessica sebastian Note: New Test Units and Gender Specific Reference Ranges. For more information see Policy Stat Procedure [place] High Sensitivity Troponin (TNIH) and attachments. Performed By: #### L 100.0100, L503.6620, L500.2500, L501.5200, L501.4020 ####[facility] [address] [place], [place], [id number] Lymphocytes Auto (Unsp spec) [#/Vol]Ordered By: Janes Zamudio on 04-12-2024 Lymphocytes (Bld) [#/Vol] 2.33 10*3/uL 0.83-4.[address] [facility] Lymphocytes/100 WBC Auto (Un sp spec)Ordered By: Janes Zamudio on 04-12-2024 Lymphocytes/100 WBC (Bld) 27.5 % 19-[address] [facility] MCV (mean corpuscular volume ) determinationOrdered By: Janes Zamudio on 04-12-2024 MCV (RBC) [Entitic vol] 92.0 fL 81-[address] [facility] Magnesiumon 04-12-2024 Magnesium [Mass/Vol] 2.2 mg/dL Normal 1.6-2.6 [facility] Comment on above: Order Comment: 'TROP ' Serial specimen #1, #2 or #3: 1 Performed By: #### L 100.0100, L503.6620, L500.2500, L501.5200, L501.4020 ####[facility] [address] [place], [place], [id number] Magnesium measurementOrdered By: Janes Zamudio on 04-12-2024 Magnesium [Mass/Vol] 2.2 mg/dL 1.6-2.6 [facility] Mean corpuscular hemoglobin (MCH) determinationOrdered By: Janes Zamudio on 04-12-2024 MCH (RBC) [Entitic mass] 30.5 pg 27.0-32.[address] [facility] Mean corpuscular hemoglobin concentration (MCHC) determinationOrdered By: Janes Zamudio on 04-12-2024 MCHC (RBC) [Mass/Vol] 33.2 g/dL 32-36 [facility] Mean platelet volume determi nationOrdered By: Janes Zamudio on 04-12-2024 Platelet mean volume (Bld) [Entitic vol] 10.1 fL 6.2-12.[address] [facility] Monocyte percentageOrdered B y: Janes Zamudio on 04-12-2024 Monocytes/100 WBC (Bld) 8.0 % 0-[address] [facility] Neutrophil percentageOrdered By: Janes Zamudio on 04-12-2024 Neutrophils/100 WBC (Bld) 61.1 % 47-[address] [facility] Nucleated red blood cell per centageOrdered By: Janes Zamudio on 04-12-2024 Nucleated RBC/100 WBC (Bld) [Ratio] 0 % 0-[address] [facility] Platelet countOrdered By: Baldomero Zamudio on 04-12-2024 Platelets (Bld) [#/Vol] 280 10*3/uL 150-[address] [facility] Potassium measurementOrdered By: Janes Zamudio on 04-12-2024 Potassium [Moles/Vol] 3.6 mmol/L 3.5-5.1 [facility] RBC Auto (Bld) [#/Vol]Ordere d By: Janes Zamudio on 04-12-2024 RBC (Bld) [#/Vol] 4.36 10*6/uL 4.2-5.4 [facility] Serum anion gap measurementO rdered By: Janes Zamudio on 04-12-2024 Anion gap [Moles/Vol] 6 mmol/L 5-15 [facility] Serum or plasma calcium michelle urement (mass/volume)Ordered By: Janes Zamudio on 04-12-2024 Calcium [Mass/Vol] 9.8 mg/dL 8.5-10.1 [facility] Serum or plasma creatinine m easurement (mass/volume)Ordered By: Janes Zamudio on 04-12-2024 Creatinine [Mass/Vol] 1.04 mg/dL High 0.55-1.02 [facility] Comment on above: The validity of the calculated GFR & GFRAA in patients over 70 years has not been determined. Clinical correlation is essential. Serum or plasma urea nitroge n measurement (mass/volume)Ordered By: Janes Zamudio on 04-12-2024 Urea nitrogen [Mass/Vol] 27 mg/dL High 7-[address] [facility] Sodium levelOrdered By: Omkar Zamudio on 04-12-2024 Sodium [Moles/Vol] 140 mmol/L 136-145 [facility] Troponin IOrdered By: Janes Zamudio on 04-12-2024 Troponin I High Sensitivity 8 pg/mL 3.0-54.[address] [facility] Comment on above: Please Note: New Debra t Units and Gender Specific Reference Ranges. For more information see Policy Stat Procedure [place] High Sensitivity Troponin (TNIH) and attachments. White blood cell (WBC) count Ordered By: Janes Zamudio on 04-12-2024 WBC (Bld) [#/Vol] 8.5 10*3/uL 4.4-11.0 [facility] Basic Metabolic Profile (BMP )on 04-02-2024 BUN/CRE 25.2 RATIO High 10-[address] [facility] Comment on above: Order Comment: RORO SHAVER Performed By: #### L 500.2500 ####[facility] [address] [place], [address] CA,Total 10.0 mg/dL Normal 8.5-10.[address] [facility] Comment on above: Order Comment: RORO SHAVER Performed By: #### L 500.2500 ####[facility] [address] [place], [address] Chloride [Moles/Vol] 96 mmol/L Low 98-107 [facility] Comment on above: Order Comment: RORO SHAVER Performed By: #### L 500.2500 ####[facility] [address] [place], [address] CO2 [Moles/Vol] 34.0 mmol/L High 21.0-32.[address] [facility] Comment on above: Order Comment: RORO SHAVER Performed By: #### L 500.2500 ####[facility] [address] [place], [address] Creatinine [Mass/Vol] 1.15 mg/dL High 0.55-1.02 [facility] Comment on above: Order Comment: RORO SHAVER Result Comment: The validity of the calculated GFR GFRAA in patients over 70 years has not been determined. Clinical correlation is essential. Performed By: #### L 500.2500 ####[facility] [address] [place], [address] EST GFR - AA 59 mL/min Low >[address] [facility] Comment on above: Order Comment: RORO SHAVER Result Comment: Afri can Fijian GFR Calc Performed By: #### L 500.2500 ####[facility] [address] [place], [address] GAP 5 Normal 5-[address] [facility] Comment on above: Order Comment: RORO SHAVER Performed By: #### L 500.2500 ####[facility] [address] [place], [address] GFR/1.73 sq M.predicted among non-blacks MDRD (S/P/Bld) [Vol rate/Area] 49 mL/min/{1.73_m2} Low >[address] [facility] Comment on above: Order Comment: RORO SHAVER Result Comment: Non- GFR Calc Performed By: #### L 500.2500 ####[facility] [address] [place], [place], [address] Glucose [Mass/Vol] 127 mg/dL High 74-106 [facility] Comment on above: Order Comment: RORO SHAVER Result Comment: Fast ing Glucose result greater than or equal to 126 mg/dL suggests DIABETES MELLITUS per A.D.A. criteria. Performed By: #### L 500.2500 ####[facility] [address] [place], [address] Potassium [Moles/Vol] 3.7 mmol/L Normal 3.5-5.1 [facility] Comment on above: Order Comment: RORO SHAVER Performed By: #### L 500.2500 ####[facility] [address] [place], [address] Sodium [Moles/Vol] 135 mmol/L Low 136-145 [facility] Comment on above: Order Comment: RORO SHAVER Performed By: #### L 500.2500 ####[facility] [address] [place], [place], [address] Urea nitrogen [Mass/Vol] 29 mg/dL High 7-[address] [facility] Comment on above: Order Comment: RORO SHAVER Performed By: #### L 500.2500 ####[facility] [address] [place], [place], [address] CNOVon 04-02-2024 CNOV Office Visit (INTMWS ) ELIZABETH PERSAUD ([id number]) 1945 [facility] Date Time Provider Department 04/02/24 10:00 AM MINERVA SHAVER During your visit today, we recorded the following information about you: Pulse Blood pressure Weight Height 96/minute 118/62 60.2 kg 1.55 m Minerva Shaver MD 04/02/2024 12:17 PM Signed Elizabeth Persaud is a 78 year old female here for a Medicare wellness visit. Medicare Health Risk Assessment General Health Poor Exercise: Minutes/Day She was working 8 hours a day but for 2 weeks not working Exercise: Days/Week Not doing much Alcohol: Daily Use None Alcohol: Drinks/Day None Alcohol: 6 or more drinks None Feel off balance She does feels of balance Concerns: Teeth/Dentures She has dentures Concerns: Sexual function Not active Troubled by feelings She is really getting depressed when she cannot work Frequency: Eating healthy diet Yes ADLs requiring help no Safety precautions in home/vehicle No Smoke, vape, chews tobacco No Difficulty hearing Yes and has hearing aids Difficulty seeing new Current Providers Specialists: I have reviewed specialist-related care of the patient in the medical record. Medical/Family history review Reviewed and updated problem list, medical/surgical/family/soc ial history, medications, and allergies. Opioid use review Opioid Medications (last 90 days) No data to display Depression Screening Cognitive screening Mini Cog Score: 2 Cognitive screening reviewed and No further action needed (score 3-5). Functional Observation Was the patient's Timed Up AND Go test unsteady or >= 12 seconds? No Advance Care Planning Surrogate decision maker and/or advance care plan documented Measurements BP 118/62 (BP Site: Left Arm) Pulse 96 Ht 155 cm (5' 1.02) Wt 60.2 kg (132 lb 11.5 oz) SpO2 94% BMI 25.06 kg/m? Vision Screening: Follows with optometry/ophthalmology Assessment/Plan Medicare annual wellness visit, subsequent (Z00.00) - Counseled on healthy diet and regular exercise - Fall avoidance information provided - Personalized prevention plan provided Reason for Visit Patient presents with: Medicare Wellness Exam Elizabeth Persaud is a 78 year old female who presents here today for Above Complaints.. Health Maintenance Depression Screening Anxiety Screening BP Controlled (<130/80) Shingrix Vaccine(3 of 3) RSV Vaccine(1 - 1-dose 75+ series) Covid-19 Vaccine(2023- season) HPI This is a 78-year-old woman with a past medical history of hypertension, A-fib, CHF with preserved ejection fraction, history of smoking disorder, history of COPD, history of Moses's esophagus, basal cell carcinoma in the past, she is undergoing ablation on April 22 at [facility]. Her recent GFR was in the low 30s and she is requesting a diclofenac tablet. Medication changes: She feels very poorly today, reports that has been the case since her flecaine was stopped. her metoprolol was raised. She is more tired now than before with the changes in medication. Her whole body is aching, around the collar bone she feels bruised, chest is tender. She is tired all the time, no energy, weakness, she is miserable. No weight loss but has water pills recently. She has pain when she stands up after resting, when she keeps walking and moving around she has trouble. She has trouble with swallowing as her discs and vertebrae are pushing pressing against esophagus. forward. One of the bolts broke loose. She has general osteoarthrosis, which has made it difficult for her in the back, hips and knees, and she still wants to work, as it gets better when she moves more. She just keeps limping most of the time. Has balance issues, from the back issues and related neuropathy. No problem-specific Assessment AND Plan notes found for this encounter. PAST MEDICAL HISTORY Diagnosis Date Anxiety Arthritis Atrial fibrillation (HCC) s/p ablation 07/2015 Backache, unspecified Moses's esophagus Basal cell carcinoma BPPV (benign paroxysmal positional vertigo) Cancer (HCC) Basal cell on forehead Carpal [...] DX W/COLLJ SPEC WHEN PFRMD 10/06/2013 Colonoscopy COLONO (more content not included)... Normal [facility] BNP,B-Type NATRIURETIC PEPTI Trent 03-24-2024 Natriuretic peptide B (Bld) [Mass/Vol] 639.0 pg/mL High 0-[address] [facility] Comment on above: Performed By: #### L 100.0100, L503.6620, L500.2500 ####[facility] [address] [place], [address] Basic Metabolic Profile (BMP )on 03-24-2024 BUN/CRE 36.0 RATIO High 10-[address] [facility] Comment on above: Performed By: #### L 100.0100, L503.6620, L500.2500 ####[facility] [address] [place], [address] CA,Total 9.4 mg/dL Normal 8.5-10.[address] [facility] Comment on above: Performed By: #### L 100.0100, L503.6620, L500.2500 ####[facility] [address] [place], [address] Chloride [Moles/Vol] 102 mmol/L Normal 98-107 [facility] Comment on above: Performed By: #### L 100.0100, L503.6620, L500.2500 ####[facility] [address] [place], [address] CO2 [Moles/Vol] 31.0 mmol/L Normal 21.0-32.[address] [facility] Comment on above: Performed By: #### L 100.0100, L503.6620, L500.2500 ####[facility] [address] [place], [address] Creatinine [Mass/Vol] 1.50 mg/dL High 0.55-1.02 [facility] Comment on above: Result Comment: The validity of the calculated GFR GFRAA in patients over 70 years has not been determined. Clinical correlation is essential. Performed By: #### L 100.0100, L503.6620, L500.2500 ####[facility] [address] [place], [address] EST GFR - AA 43 mL/min Low >[address] [facility] Comment on above: Result Comment: Afri can Fijian GFR Calc Performed By: #### L 100.0100, L503.6620, L500.2500 ####[facility] [address] [place], [address] GAP 6 Normal 5-[address] [facility] Comment on above: Performed By: #### L 100.0100, L503.6620, L500.2500 ####[facility] [address] [place], [address] GFR/1.73 sq M.predicted among non-blacks MDRD (S/P/Bld) [Vol rate/Area] 36 mL/min/{1.73_m2} Low >[address] [facility] Comment on above: Result Comment: Non- GFR Calc Performed By: #### L 100.0100, L503.6620, L500.2500 ####[facility] [address] [place], [address] Glucose [Mass/Vol] 110 mg/dL High 74-106 [facility] Comment on above: Result Comment: Fast ing Glucose result from 100 to 125 mg/dL suggests IMPAIRED HOMEOSTASIS per A.D.A. criteria. Performed By: #### L 100.0100, L503.6620, L500.2500 ####[facility] [address] [place], [address] Potassium [Moles/Vol] 3.7 mmol/L Normal 3.5-5.1 [facility] Comment on above: Performed By: #### L 100.0100, L503.6620, L500.2500 ####[facility] [address] [place], [address] Sodium [Moles/Vol] 138 mmol/L Normal 136-145 [facility] Comment on above: Performed By: #### L 100.0100, L503.6620, L500.2500 ####[facility] [address] [place], [address] Urea nitrogen [Mass/Vol] 54 mg/dL High 7-[address] [facility] Comment on above: Performed By: #### L 100.0100, L503.6620, L500.2500 ####[facility] [address] [place], [address] CBC W/Diff, Automatedon 03-12-2023 Absolute Lymph 2.64 X10 3/uL Normal 0.83-4.[address] [facility] Comment on above: Performed By: #### L 100.0100, L503.6620, L500.2500 ####[facility] [address] [place], [address] Absolute Neut 4.0 X10 3/uL Normal 2.0-7.[address] [facility] Comment on above: Performed By: #### L 100.0100, L503.6620, L500.2500 ####[facility] [address] [place], [address] Basophils/100 WBC (Bld) 0.5 % Normal 0-[address] [facility] Comment on above: Performed By: #### L 100.0100, L503.6620, L500.2500 ####[facility] [address] [place], [address] Eosinophils/100 WBC (Bld) 2.4 % Normal 0-[address] [facility] Comment on above: Performed By: #### L 100.0100, L503.6620, L500.2500 ####[facility] [address] [place], [address] Erythrocyte distribution width (RBC) [Ratio] 12.8 % Normal 11.6-14.[address] [facility] Comment on above: Performed By: #### L 100.0100, L503.6620, L500.2500 ####[facility] [address] [place], [address] Hematocrit (Bld) [Volume fraction] 40.7 % Normal 37-[address] [facility] Comment on above: Performed By: #### L 100.0100, L503.6620, L500.2500 ####[facility] [address] [place], [address] Hemoglobin (Bld) [Mass/Vol] 13.7 g/dL Normal 12.0-15.[address] [facility] Comment on above: Performed By: #### L 100.0100, L503.6620, L500.2500 ####[facility] [address] [place], [address] IG% 0.400 Normal 0.0-0.[address] [facility] Comment on above: Result Comment: IG% - Immature Granulocytes (promyelocytes, myelocytes and metamyelocytes) > 1% indicates that a LEFT SHIFT is Present. Performed By: #### L 100.0100, L503.6620, L500.2500 ####[facility] [address] [place], [address] Lymphocytes/100 WBC (Bld) 34.9 % Normal 19-[address] [facility] Comment on above: Performed By: #### L 100.0100, L503.6620, L500.2500 ####[facility] [address] [place], [address] MCH (RBC) [Entitic mass] 30.6 pg Normal 27.0-32.[address] [facility] Comment on above: Performed By: #### L 100.0100, L503.6620, L500.2500 ####[facility] [address] [place], [address] MCHC (RBC) [Mass/Vol] 33.7 g/dL Normal 32-36 [facility] Comment on above: Performed By: #### L 100.0100, L503.6620, L500.2500 ####[facility] [address] [place], [address] MCV (RBC) [Entitic vol] 91.1 fL Normal 81-[address] [facility] Comment on above: Performed By: #### L 100.0100, L503.6620, L500.2500 ####[facility] [address] [place], [address] Monocytes/100 WBC (Bld) 9.3 % Normal 0-[address] [facility] Comment on above: Performed By: #### L 100.0100, L503.6620, L500.2500 ####[facility] [address] [place], [address] Neutrophils/100 WBC (Bld) 52.5 % Normal 47-[address] [facility] Comment on above: Performed By: #### L 100.0100, L503.6620, L500.2500 ####[facility] [address] [place], [address] Nucleated RBC (Bld) [#/Vol] 0 10*3/uL Normal 0-[address] [facility] Comment on above: Performed By: #### L 100.0100, L503.6620, L500.2500 ####[facility] [address] [place], [address] Platelet mean volume (Bld) [Entitic vol] 10.6 fL Normal 6.2-12.[address] [facility] Comment on above: Performed By: #### L 100.0100, L503.6620, L500.2500 ####[facility] [address] [place], [address] Platelets (Bld) [#/Vol] 249 10*3/uL Normal 150-[address] [facility] Comment on above: Performed By: #### L 100.0100, L503.6620, L500.2500 ####[facility] [address] [place], [address] RBC (Bld) [#/Vol] 4.47 10*6/uL Normal 4.2-5.4 [facility] Comment on above: Performed By: #### L 100.0100, L503.6620, L500.2500 ####[facility] [address] [place], [address] RDW SD 42.1 fl Normal 35.1-43.[address] [facility] Comment on above: Performed By: #### L 100.0100, L503.6620, L500.2500 ####[facility] [address] [place], [address] WBC (Bld) [#/Vol] 7.6 10*3/uL Normal 4.4-11.0 [facility] Comment on above: Performed By: #### L 100.0100, L503.6620, L500.2500 ####[facility] [address] [place], [address] Cardiology Visit Reporton Cardiology Visit Report [facility] [address] [place] [address] OFFICE VISIT Date of Service: 03/24/24 MR#: [id number] Acct: [id number] Name: ELIZABETH PERSAUD Rep #: [id number] : 1945 Provider: DANYA dalal Age/Sex: 78/F Location: [facility] Status: Signed HPI HPI History of Present Illness Details: ELIZABETH PERSAUD, is a 78 F who presents to the office for a cardiovascular follow up visit. She has a history of previous atrial fibrillation for which she was hospitalized and underwent a ARIS guided cardioversion.???Patient presented to her PCP in May 2022 with complaints of shortness of breath with minimal exertion and leg weakness. She states her heart rates have been in the 90s while working, and increases to 140 on her recumbent exercise bike. At some point her flecainide had gotten discontinued and she was placed on amiodarone for her atrial fibrillation. She states that she is allergic to amiodarone due to worsening dyspnea on exertion. This was discontinued at her last office visit, and she was placed back on flecainide. She had been scheduled for an outpatient cardioversion on 08/06/2022, but had successfully cardioverted on her own. Patient presented to the emergency room on 08/08/2022 with strokelike symptoms. Patient presented because of facial droop, altered sensation and left sided weakness. She had not missed any doses of her Eliquis. Her heart rate was noted to be low at 38. Her metoprolol and Flecainide were placed on hold at that time. Her heart rate did improve. Her CT of the head without contrast revealed no evidence of subdural, epidural, subarachnoid hemorrhage or intraparenchymal hemorrhage. There was no obvious stroke noted. Her MRI of the brain was also negative. 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 She was later discharged from the hospital and instructed to follow with neurology for suspected stroke due to symptomatology. She states she is scheduled to see vascular- Dr. Persaud at [facility] next week. She was seen in the Emergency Room on 12/31/2022 for shortness of breath. Per EMS report she was noted be 80% on room air and placed on CPAP therapy. She received IV Lasix. Her BNP, 394.7, was elevated and her troponin was normal. Her ECG showed sinus rhythm. She was admitted and treated for respiratory failure secondary to acute on chronic congestive heart failure and suspected pneumonia. She underwent an echocardiogram on 12/31/2022 that showed ejection fraction of 60% and moderately enlarged left atrium. She was evaluated with EP at [facility] with plans to undergo ablation and Tikosyn therapy. Her flecainide was discontinued. She denies chest, arm, jaw, or neck discomfort. She acknowledges occasional palpitations that she describes as fast. She denies bilateral lower extremity edema. She denies claudication. She notes shortness of breath with activity. She denies shortness of breath at rest, orthopnea, or PND. She denies chronic cough. She denies significant, sudden weight gain. She denies lightheadedness, dizziness, near-syncope, or syncope. She denies blood in urine, blood in stool, or epistaxis. He denies fever with chills. She denies myalgia. She states fatigue. She does acknowledge a recent fall. Her exercise level has remained stable. 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: No Accompanied by: Self Is patient in pain?: No Allergies etodolac Allergy (Intermediate, Verified 03/24/24 11:03) Other diltiazem HCl (From Cardizem) Allergy (Verified 03/24/24 11:03) Swelling of face and neck naproxen Allergy (Verified 03/24/24 11:03) Swelling (whole body) prednisone Allergy (Verified 03/24/24 11:03) Other amiodarone Adverse Reaction (Severe, Verified 03/24/24 11:03) Severe dyspnea after taking PO Amiodarone adhesive Adverse Reaction (Verified 03/24/24 11:03) Rash albuterol Adverse Reaction (Verified 03/24/24 11:03) Other codeine Adverse Reaction (Verified 03/24/24 11:03) Vomiting hydrocodone bitartrate (From Vicodin) Adverse Reaction (Verified 03/24/24 11:03) Vomiting morphine Adverse Reaction (Verified 03/24/24 11:03) Vomiting Medications ???Medication ???Instructions ???Recorded ???Confirmed ???Type multivitamin with folic acid 400 1 tab PO DAILY supplement 03/15/13 03/24/24 History mcg tablet calcium carbonate 500 mg PO DAILY Check with primary 06/25/21 03/24/24 History doctor cyclobenzaprine 10 mg tablet 10 mg PO HS PRN muscle spasm 07/25/2203/24 (more content not included)... Normal [facility] Chest PA and Lateralon 03-24 Chest PA and Lateral [facility] Imaging Services [address] [place], [place] [address] Chest PA and Lateral MR#: [id number] Acct: [id number] Name: ELIZABETH PERSAUD Rep #: [id number] : 1945 F 78 From: Berto Fulton DO PCP: Dr. Minerva Shaver MD Status: REG CLI Study: Chest PA and Lateral Date of Exam: 03/24/24 Exam# [id number] Ordering Dr: Nagi Freeman NP FORMULATOR-C [id number] INDICATION: SOB EXAMINATION/TECHNIQUE: X-RAY - XR Chest 2 Views COMPARISON: FINDINGS: LINES/DEVICES: None. LUNGS: No consolidation, edema or effusion. Left basilar atelectasis. No pneumothorax. MEDIASTINUM AND CARDIOVASCULAR STRUCTURES: Cardiac silhouette not enlarged. Central airways and mediastinal contour are unremarkable. BONES AND SOFT TISSUES: Degenerative vertebral changes and scoliosis. RAD/Chest PA and Lateral IMPRESSION: Left basilar atelectasis. Electronically Signed: Berto Fulton DO at 8:13 EST Reading Location ID and State: [facility] / [place] Tel [phone], Service support , CC: PAGEC Nagi Freeman; Dr. Minerva Shaver MD [employer] Certified Network Associate: Signed Normal [facility] 02-23-2024 [facility] Telephone (INTMWS) ELIZABETH PERSAUD ([id number]) 1945 F MISSAEL Date Time Provider Department 02/23/24 MINERVA SHAVER During your visit today, we recorded the following information about you: Davin Waterman MA 02/23/2024 8:16 AM Signed Form received from [facility] regarding patient's REFUGIO for insurance purposes. Form filled out and placed on PCP desk for signature. Once signed, please fax to [facility] at [phone], ATTN HR and copy to scanning. JOHNATHAN Deutsch Rachel L, MA 02/23/2024 8:28 AM Signed Faxed as requested. Davin Waterman MA Allergies As of Date: 02/23/2024 Noted Allergy Reaction CARDIZEM (DILTIAZEM HCL) 01/18/2015 7 - Swelling CODEINE 01/21/2006 11 - Vomiting Comments: Ringing in Ears. ENTEX (PHENYLEPHRINE-GUAIFENESIN) 03/06/2007 2 - Rash ETODOLAC 07/06/2012 14 - Other: See Comments Comments: Heart palpitations MELOXICAM 05/25/2012 14 - Other: See Comments Comments: Heart palpitations NAPROXEN 01/29/2011 7 - Swelling Comments: Possible allergy? Pt relates to naproxen TAPE (ADHESIVE TAPE (ROSINS)) 03/31/2023 2 - Rash TRAZODONE 08/19/2014 14 - Other: See Comments Comments: rapid hear beat ZANTAC (RANITIDINE HCL) 05/29/2016 2 - Rash 7 - Swelling Date Reviewed: 01/01/2024 Reviewed by: Tamanna Cordova MA - Fully Assessed Reason for Visit: Forms [913] Prescriptions as of 02/23/2024 - diclofenac, EC, (VOLTAREN) 75 mg EC tablet Takes once daily PRN for acute pain/inflammation. Take with food. - nystatin (MYCOSTATIN) 100,000 unit/mL suspension Take 5 mL by mouth four times daily. 1tsp swish in mouth for several minutes, then swallow (or expectorate) 4 times daily until gone. - omeprazole (PRILOSEC) 40 mg capsule Take 1 capsule by mouth once daily. - metoprolol succinate ER (TOPROL XL) 50 mg 24 hr tablet Take 1 tablet by mouth two times a day. - soddpwykbpy-byjufyjnv-ubias ter (TRELEGY ELLIPTA) 100-62.5-25 mcg inhalation powder Inhale 1 Puff as instructed once daily. - flecainide (TAMBOCOR) 100 mg tablet Take 1 tablet by mouth two times a day. - fluticasone (FLONASE) 50 mcg/actuation nasal spray Use 2 Sprays in each nostril once daily. Rinse mouth after use. - JARDIANCE 10 mg tablet Take 10 mg by mouth once daily. - Ipratropium (ATROVENT) 17 mcg/actuation inhaler Inhale 2 Puffs as instructed every 6 hours as needed for wheezing/shortness of breath. - furosemide (LASIX) 40 mg tablet Take 1 tablet by mouth twice daily. - apixaban (ELIQUIS) 5 mg tab(s) Take by mouth twice daily. - Bifidobacterium infantis (ALIGN) 10.5 mg (10 million cell) chew Take 1 tablet by mouth once daily. - potassium chloride ER (K-DUR, KLOR-CON) 20 mEq tablet Take 1 tablet by mouth twice daily. - melatonin 3 mg ODT Take 1 tablet by mouth daily at bedtime. - MULTIVITAMIN WITH MINERALS (ONE-A-DAY 50 PLUS ORAL) Take by mouth. - CALCIUM CARBONATE/VITAMIN D3 (VITAMIN D-3 ORAL) Take 1,000 mg by mouth five times daily. - WHDVVAH-ZDNKIEDXN-WJHQ ORAL Take by mouth. Problem List As Of Date 02/23/2024 Noted Resolved PERSISTENT INSOMNIA [G47.00] 07/16/2006 Moses's esophagus [K22.70] 07/16/2006 CALCULUS OF KIDNEY [N20.0] 07/16/2006 Irritable bowel syndrome [K58.9] 07/16/2006 01/10/2016 Tobacco use disorder [F17.200] 07/16/2006 01/10/2016 Pain in joint, shoulder region [M25.519] 06/22/2008 09/25/2015 ANXIETY GENERALIZED [F41.1] 08/31/2008 01/10/2016 Umbilical hernia without mention of obstruction*07/25/2010 09/25/2015 Carpal tunnel syndrome, left [G56.02] 01/30/2012 Carpal tunnel syndrome, right [G56.01] 01/30/2012 01/10/2016 Right shoulder strain [S46.911A] 03/24/2012 09/25/2015 Tendonitis of shoulder, right [M77.8] 05/25/2012 Rotator cuff tear [M75.100] 07/13/2012 Hematuria [R31.9] 06/09/2013 09/25/2015 Smoking history [Z87.891] 06/09/2013 Hypertension [I10] 07/21/2013 Atrial fibrillation (HCC) [I48.91] 08/19/2014 Panlobular emphysema (HCC) [J43.1] 04/28/2015 01/27/2023 Generalized arthritis [M19.90] 09/25/2015 History of DVT (deep vein thrombosis) [Z86.718] 11/10/2015 Encounter for colonoscopy due to history of cony*11/22/2015 11/22/2015 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 [K22.7*11/22/2015 11/22/2015 S/P cervical spinal fusion [Z98.1] 02/14/2016 BCC (basal cell carcinoma of skin) [C44.91] 12/24/2021 Heart murmur [R01.1] 12/24/2021 CHF (congestive heart failure) (HCC) [I50.9] 12/24/2021 Vaginal enterocele due to incomplete uterovagin*12/24/2021 Moderate COPD (chronic obstructive pulmonary di*01/27/2023 Peripheral arterial disease (HCC) [I73.9] 06/30/2023 Encounter Status:Closed by DAVIN WATERMAN on 02/23/[address] [facility] 12 Lead EKG performed by [facility] on 01-22-2024 12 Lead EKG performed by [facility] [address] [place] [id number] 12 Lead EKG performed by [facility] 01/22/24 0809 MR#: [id number] Acct: [id number] Name: ELIZABETH PERSAUD Rep #: [id number] : 1945 78 From: Nagi Freeman FORMULATOR FORMULATOR-C Attending Dr: Nagi Freeman NP-C Status: DEP AMB Ordering Dr: Nagi Freeman NP FORMULATOR-C Date: 01/22/24 Location: [facility] Sex: F C Admitted: BMS/12 Lead EKG performed by BMS ECG Report Interpretation atrial fibrillation -Incomplete right bundle branch block and left axis -anterior fascicular block. - Nonspecific T-abnormality. ABNORMAL Electronically signed on 01/22/2024 at 15:55 by Maxim Ibarrawood Software Version [id number] 01/22/24 1557 Date Nagi Freeman NP FORMULATOR-C CC: Dr. Minerva Shaver MD Date Dictated: 01/22/24808 Date Transcribed: 01/22/24808 [employer] Certified Network Associate: LENARD Signed Normal [facility] Procedure Reporton Procedure Report [facility] Medical Records Department [address] [place] [address] Procedure Report 01/15/24 1320 MR#: [id number] Acct: [id number] Name: ELIZABETH PERSAUD Rep #: [id number] : 1945 78 From: Varun Montes DO PCP: Dr. Minerva Shaver MD Status:[facility] Location: [facility] Procedure Report Date of Procedure: 01/15/24 CONSCIOUS SEDATION REPORT DATE OF SERVICE: January 15, 2024 BRIEF HISTORY OF PRESENT ILLNESS: The patient is a 78-year-old female who presented to [facility] for elective outpatient cardioversion due to underlying atrial fibrillation. The patient denied any prior anesthetic complications. She does have a history of known COPD and is currently followed by Dr. Laith Montes of pulmonary medicine at [facility]. She has never been diagnosed with obstructive sleep apnea. She is systemically anticoagulated on Eliquis. Her last surface echocardiogram demonstrated an ejection fraction of approximately 60%. The patient did undergo a prior cardioversion in June 2023, which was successful in restoring normal sinus rhythm. PHYSICAL EXAMINATION: VITAL SIGNS: Reviewed and were acceptable. GENERAL: The patient is a female, in no apparent distress, speaking in full sentences. HEENT: Normocephalic, atraumatic. Mucous membranes are moist and pink. Good mouth opening noted. Trachea is midline. CHEST: S1, S2 irregularly irregular. No murmurs, rubs or gallops were noted. LUNGS: Clear to auscultation bilaterally without appreciable wheezes, rales or rhonchi. ABDOMEN: Soft, nontender, nondistended. Positive bowel sounds. EXTREMITIES: There is no clubbing, cyanosis or edema. ASA Class: II DESCRIPTION OF PROCEDURE: After confirmation of informed consent, the patient's anesthesia plan was reviewed in detail. Propofol was chosen. Risks and benefits were reviewed and the patient agreed to proceed. At 1252, the patient was given 40 mg of propofol. The patient achieved an appropriate level of sedation and was given a 200 joule synchronized cardioversion by Dr. Ibarra at the bedside. This was successful in achieving normal sinus rhythm. The patient was monitored until 1308, at which time she reached her baseline mental status and function. The patient tolerated the procedure well. COMPLICATIONS: None ESTIMATED BLOOD LOSS: None RECOMMENDATIONS: Okay to recover in usual fashion. Procedures Pulmonary Pulmonary Procedures /Diagnostic Testin Con Sedation 01/15/24 1322 Cosigner Signature (if applicable): CC: Dr. Minerva Shaver MD; Dr. Maxim Ibarra MD; Dr. Varun Montes DO Signed Normal [facility] Procedure Report [facility] Medical Records Department [address] [place] [address] Procedure Report 01/15/24 1259 MR#: [id number] Acct: [id number] Name: ELIZABETH PERSAUD Rep #: [id number] : 1945 78 From: Maxim Ibarra MD PCP: Dr. Minerva Shaver MD Status:REG [facility] Location: [facility] Procedure Report Date of Procedure: 01/15/24 DC cardioversion. 78-year-old lady with a history of atrial fibrillation. The patient was brought to cardiac catheterization lab in the postabsorptive nonsedated state. Patient was seen by Dr. Montes of the critical care division. Informed consent was obtained. Anterior-posterior pads were applied. 40 mg intravenous propofol was administered and then 200 J of synchronized biphasic DC cardioversion energy were applied with prompt reversal to sinus rhythm. Patient tolerated the procedure well. Conclusion: Successful DC cardioversion from atrial fibrillation to sinus rhythm. Follow-up as per office protocol. 01/15/24 1300 Cosigner Signature (if applicable): CC: Dr. Minerva Shaver MD; Dr. Maxim Ibarra MD Signed Normal [facility] CNOVon 01-01-2024 [facility] Office Visit (INTMWS ) ELIZABETH PERSAUD ([id number]) 1945 F [facility] Date Time Provider Department 01/01/24 10:40 AM DIANNA BALLARD INTMSERVANDO During your visit today, we recorded the following information about you: Pulse Respiration Blood pressure Weight 108/minute 16/minute 104/80 59 kg OlderDianna APRN.[facility] 01/01/2024 1:33 PM Signed CC: Patient presents with: Recheck: 3 month follow up HPI Elizabeth Persaud is a 78 year old female who presents today for routine follow up. Currently in a-fib, HTN, CHF: working with cardiology and has appointment to discuss possible ablation at the end of February. Having a lot of palpitations, shortness for breath, chest pressure if HR is really high, On eliquis for DVT prophylaxis. Patient denies any side effects of her medication(s) and is compliant with their regimen. She does check BP's away from this office with average BP's in the 90s-100s/60s-70s range. 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 She watches her diet for sodium, low fat and low cholesterol most of the time. Is waiting for cardiology to decide if they will cardiovert her. Last 3 Encounter BP Readings: Date: BP: 01/01/2024 104/80 12/15/2023 100/64 09/29/2023 124/70 COPD: Following with pulmonology and much improvement with current treatment. Denies cough, wheezing, or need for a rescue inhaler. REVIEW OF SYSTEMS See HPI PAST MEDICAL HISTORY No date: Anxiety No date: Arthritis No date: Atrial fibrillation (HCC) Comment: s/p ablation 07/2015 No date: Backache, unspecified No date: Moses's esophagus No date: Basal cell carcinoma No date: BPPV (benign paroxysmal positional vertigo) No date: Cancer (HCC) Comment: Basal cell on forehead No date: Carpal tunnel syndrome, bilateral No date: Congestive heart failure (HCC) No date: COPD (chronic obstructive pulmonary disease) (HCC) No date: DVT (deep venous thrombosis) ([facility]) Comment: remote No date: Esophageal reflux 10/31/2018: History of cardioversion No date: HTN (hypertension) No date: Irritable bowel syndrome 09/14/2018: Left carotid bruit Comment: noted by cardiology 11/08/2016: Left ventricular systolic dysfunction No date: Other specified abdominal hernia without obstruction or gangrene No date: PONV (postoperative nausea and vomiting) No date: S/P cervical spinal fusion No date: Scoliosis PAST SURGICAL HISTORY No date: BREAST SURGERY HX; Right Comment: Lumpectomy benign 10/2016: CHOLECYSTECTOMY 06/11/2022: COLONOSCOPY Comment: repeat prn 10/06/2013: COLONOSCOPY FLX DX W/COLLJ SPEC WHEN PFRMD Comment: Colonoscopy 11/22/2015: COLONOSCOPY FLX DX W/COLLJ SPEC WHEN PFRMD Comment: Colonoscopy No date: CONIZATION OF CERVIX, LEEP No date: CURETTAGE 06/11/2022: EGD 02/08/2011: EGD TRANSORAL BIOPSY SINGLE/MULTIPLE 10/06/2013: ESOPHAGOGASTRODUODENOSCOPY TRANSORAL DIAGNOSTIC Comment: EGD 11/22/2015: ESOPHAGOGASTRODUODENOSCOPY TRANSORAL DIAGNOSTIC Comment: EGD 02/28/2016: ESOPHAGOGASTRODUODENOSCOPY TRANSORAL DIAGNOSTIC Comment: EGD No date: EYE SURGERY HX No date: HERNIA REPAIR HX No date: LIG/TRNSXJ FLP TUBE ABDL/VAG APPR UNI/BI Comment: Tubal ligation 02/14/2012: NEUROPLASTY AND/TRANSPOS MEDIAN NRV CARPAL TUNNE Comment: Carpal tunnel decomp - right 07/17/2010: OOPHORECTOMY PARTIAL/TOTAL UNI/BI Comment: Oophorectomy - left Dr. Manuel Hoover - Dr. Alessio Dahl No date: PAST SURGICAL HISTORY OF Comment: NECK SURGERY, anterior fusion No date: PAST SURGICAL HISTORY OF Comment: Face lift No date: PAST SURGICAL HISTORY OF Comment: back surgery No date: PAST SURGICAL HISTORY OF Comment: bilat foot surgey, bunionectomy No date: PAST SURGICAL HISTORY OF Comment: benign tumor removed from right breast 03/2011: PAST SURGICAL HISTORY OF Comment: B/L cataract surgery with implants- Dr Jacob Aguilar at [facility] 07/27/2015: PAST SURGICAL HISTORY OF Comment: cryo ablation, cardiac 07/17/2010: RPR UMBILICAL HRNA 5 YRS/> REDUCIBLE Comment: Hernia repair, umbilical >5yr [facility] Dr Manuel Hoover No date: SHX COSMETIC SURGERY No date: SKIN BIOPSY HX ALLERGIES Cardizem [Diltiazem Hcl], Codeine, Entex [Phenylephrine-Guaifenesin] , Etodolac, Meloxicam, Naproxen, Tape [Adhesive Tape (Rosins)], Trazodone, and Zantac [Ranitidine Hcl] MEDICATIONS diclofenac, EC, (VOLTAREN) 75 mg EC tablet Takes once daily PRN for acute pain/inflammation. Take with food. nystatin (MYCOSTATIN) 100,000 unit/mL suspension Take 5 mL by mouth four times daily. 1tsp swish in mouth for several minutes, then swallow (or expectorate) 4 times daily until gone. omeprazole (PRILOSEC) 40 mg capsule Take 1 capsule by mouth once daily. metoprolol succinate ER (TOPROL XL) 50 mg 24 hr tablet Take 1 tablet by mouth two times a day. (Patient taking differently: Take 25 mg by mouth two times a day.) fluticas (more content not included)... Normal [facility] Carotid Duplex Ultrasoundon 12-23-2023 Carotid Duplex Ultrasound [facility] Cardiovascular Services [address] [place] [address] Carotid Duplex Ultrasound 12/23/23 1035 MR#: [id number] Acct: [id number] Name: ELIZABETH PERSAUD Rep #: [id number] : 1945 78 From: Farhad Whitt MD Attending Dr: RENEE Rizvi Status: REG CLI Ordering Dr: Susan Mac Date: 12/10 08/02 Location: [facility] Sex: F C Admitted: Reason For Study: DIZZINESS Rt. Velocities/BP Lt. Velocities/BP Prox CCA 80.9/14.9 cm/sec. Prox CCA 51.1/10.1 cm/sec. Mid CCA 56.7/9.5 cm/sec. Mid CCA 49.4/13.6 cm/sec. Dist CCA 31.1/8.4 cm/sec. Dist CCA 84.3/19.7 cm/sec. Prox ICA 30.5/10.6 cm/sec. Prox ICA 35.6/14.4 cm/sec. Mid ICA 49.0/20.6 cm/sec. Mid ICA 44.6/11.8 cm/sec. Dist ICA 56.7/20.4 cm/sec. Dist ICA 43.8/21.8 cm/sec. Rt. ICA/CCA = 56.7/56.7=1.0. Lt. ICA/CCA = 44.6/49.4=0.9. Prox ECA 41.5/7.5 cm/sec. Prox ECA 35.4/4.9 cm/sec. Rt. Vert. 34.6/8.3 cm/sec. Lt. Vert. 38.1/14.5 cm/sec. Right Extracranial There is intimal thickening but no significant atherosclerotic plaque noted in the right common carotid artery. There is heterogeneous, irregular atherosclerotic plaque noted in the right internal carotid artery. There is heterogeneous, smooth atherosclerotic plaque noted in the right external carotid artery. Antegrade flow is noted in the right vertebral artery. Left Extracranial There is heterogeneous, irregular atherosclerotic plaque noted in the left common carotid artery. There is heterogeneous, smooth atherosclerotic plaque noted in the left internal carotid artery. There is no significant atherosclerotic plaque noted in the left external carotid artery. Antegrade flow is noted in the left vertebral artery. Procedure Carotid Duplex [address]241. This is a Carotid Duplex examination using B-mode, color flow and specral Doppler. The study was technically difficult. D/T ARRHYTHMIA. Exam performed in department. VL/Carotid Duplex Ultrasound Interpretation Summary Mild (<50%) stenosis right extracranial internal carotid. Mild (<50%) stenosis left extracranial internal carotid. Patent and antegrade vertebrals bilaterally. Ordering Physician: Susan Mac Referring Physician: Minerva Shaver Performed By: Usha Mcdonald, RDCS, RVT 12/23/23 1452 Date Farhad Whitt MD CC: Dr. Minerva Shaver MD; RENEE Rizvi Date Dictated: 12/23/23 1035 Date Transcribed: 12/23/231451 [employer] Certified Network Associate: Signed [facility] 12 Lead EKG performed by [facility] on 12-22-2023 12 Lead EKG performed by [address] [address] 12 Lead EKG performed by [facility] 12/22/23 1135 MR#: [id number] Acct: [id number] Name: ELIZABETH PERSAUD Rep #: [id number] : 1945 78 From: Nagi Freeman FORMULATOR FORMULATOR-C Attending Dr: Nagi Freeman FORMULATOR-C Status: DEP AMB Ordering Dr: Nagi Freeman FORMULATOR FORMULATOR-C Date: 12/22/23 [place] [facility] [place] [facility] [place] Sex: F C Admitted: [facility]/12 Lead EKG performed by [facility] ECG Report Interpretation atrial fibrillation -Nonspecific QRS widening and anterior fascicular block. -Old inferior infarct. - Nonspecific T-abnormality. ABNORMAL Electronically signed on 12/23/2023 at 10:37 by Maxim Ibarra Software Version [id number] 12/23/23 1042 Date Nagi Freeman NP FORMULATOR-C CC: Dr. Minerva Shaver MD Date Dictated: 12/22/231134 Date Transcribed: 12/22/231134 [employer] Certified Network Associate: LENARD Signed Normal [facility] BNP,B-Type NATRIURETIC PEPTI Trent 12-22-2023 Natriuretic peptide B (Bld) [Mass/Vol] 343.9 pg/mL High 0-[address] [facility] Comment on above: Performed By: #### L 503.6620, L100.0100, L500.2500 ####[facility] [address] [place], [address] Basic Metabolic Profile (BMP )on 12-22-2023 BUN/CRE 32.6 RATIO High 10-[address] [facility] Comment on above: Performed By: #### L 503.6620, L100.0100, L500.2500 ####[facility] [address] [place], [address] CA,Total 10.1 mg/dL Normal 8.5-10.[address] [facility] Comment on above: Performed By: #### L 503.6620, L100.0100, L500.2500 ####[facility] [address] [place], [address] Chloride [Moles/Vol] 107 mmol/L Normal 98-107 [facility] Comment on above: Performed By: #### L 503.6620, L100.0100, L500.2500 ####[facility] [address] [place], [address] CO2 [Moles/Vol] 29.0 mmol/L Normal 21.0-32.[address] [facility] Comment on above: Performed By: #### L 503.6620, L100.0100, L500.2500 ####[facility] [address] [place], [address] Creatinine [Mass/Vol] 0.80 mg/dL Normal 0.55-1.02 [facility] Comment on above: Result Comment: The validity of the calculated GFR GFRAA in patients over 70 years has not been determined. Clinical correlation is essential. Performed By: #### L 503.6620, L100.0100, L500.2500 ####[facility] [address] [place], [address] EST GFR - AA 90 mL/min Normal >[address] [facility] Comment on above: Result Comment: Afri can Fijian GFR Calc Performed By: #### L 503.6620, L100.0100, L500.2500 ####[facility] [address] [place], [address] GAP 3 Low 5-[address] [facility] Comment on above: Performed By: #### L 503.6620, L100.0100, L500.2500 ####[facility] [address] [place], [address] GFR/1.73 sq M.predicted among non-blacks MDRD (S/P/Bld) [Vol rate/Area] 74 mL/min/{1.73_m2} Normal >[address] [facility] Comment on above: Result Comment: Non- GFR Calc Performed By: #### L 503.6620, L100.0100, L500.2500 ####[facility] [address] [place], [address] Glucose [Mass/Vol] 110 mg/dL High 74-106 [facility] Comment on above: Result Comment: Fast ing Glucose result from 100 to 125 mg/dL suggests IMPAIRED HOMEOSTASIS per A.D.A. criteria. Performed By: #### L 503.6620, L100.0100, L500.2500 ####[facility] [address] [place], [address] Potassium [Moles/Vol] 4.2 mmol/L Normal 3.5-5.1 [facility] Comment on above: Performed By: #### L 503.6620, L100.0100, L500.2500 ####[facility] [address] [place], [address] Sodium [Moles/Vol] 139 mmol/L Normal 136-145 [facility] Comment on above: Performed By: #### L 503.6620, L100.0100, L500.2500 ####[facility] [address] [place], [address] Urea nitrogen [Mass/Vol] 26 mg/dL High 7-[address] [facility] Comment on above: Performed By: #### L 503.6620, L100.0100, L500.2500 ####[facility] [address] [place], [address] CBC W/Diff, Automatedon 12-10-2023 Absolute Lymph 2.25 X10 3/uL Normal 0.83-4.[address] [facility] Comment on above: Performed By: #### L 503.6620, L100.0100, L500.2500 ####[facility] [address] [place], [address] Absolute Neut 3.7 X10 3/uL Normal 2.0-7.[address] [facility] Comment on above: Performed By: #### L 503.6620, L100.0100, L500.2500 ####[facility] [address] [place], [address] Basophils/100 WBC (Bld) 0.4 % Normal 0-[address] [facility] Comment on above: Performed By: #### L 503.6620, L100.0100, L500.2500 ####[facility] [address] [place], [address] Eosinophils/100 WBC (Bld) 2.1 % Normal 0-[address] [facility] Comment on above: Performed By: #### L 503.6620, L100.0100, L500.2500 ####[facility] [address] [place], [address] Erythrocyte distribution width (RBC) [Ratio] 12.4 % Normal 11.6-14.[address] [facility] Comment on above: Performed By: #### L 503.6620, L100.0100, L500.2500 ####[facility] [address] [place], [address] Hematocrit (Bld) [Volume fraction] 41.0 % Normal 37-[address] [facility] Comment on above: Performed By: #### L 503.6620, L100.0100, L500.2500 ####[facility] [address] [place], [address] Hemoglobin (Bld) [Mass/Vol] 13.4 g/dL Normal 12.0-15.[address] [facility] Comment on above: Performed By: #### L 503.6620, L100.0100, L500.2500 ####[facility] [address] [place], [address] IG% 0.300 Normal 0.0-0.[address] [facility] Comment on above: Result Comment: IG% - Immature Granulocytes (promyelocytes, myelocytes and metamyelocytes) > 1% indicates that a LEFT SHIFT is Present. Performed By: #### L 503.6620, L100.0100, L500.2500 ####[facility] [address] [place], [address] Lymphocytes/100 WBC (Bld) 33.6 % Normal 19-[address] [facility] Comment on above: Performed By: #### L 503.6620, L100.0100, L500.2500 ####[facility] [address] [place], [address] MCH (RBC) [Entitic mass] 30.5 pg Normal 27.0-32.[address] [facility] Comment on above: Performed By: #### L 503.6620, L100.0100, L500.2500 ####[facility] [address] [place], [address] MCHC (RBC) [Mass/Vol] 32.7 g/dL Normal 32-36 [facility] Comment on above: Performed By: #### L 503.6620, L100.0100, L500.2500 ####[facility] [address] [place], [address] MCV (RBC) [Entitic vol] 93.2 fL Normal 81-[address] [facility] Comment on above: Performed By: #### L 503.6620, L100.0100, L500.2500 ####[facility] [address] [place], [address] Monocytes/100 WBC (Bld) 7.9 % Normal 0-[address] [facility] Comment on above: Performed By: #### L 503.6620, L100.0100, L500.2500 ####[facility] [address] [place], [address] Neutrophils/100 WBC (Bld) 55.7 % Normal 47-[address] [facility] Comment on above: Performed By: #### L 503.6620, L100.0100, L500.2500 ####[facility] [address] [place], [address] Nucleated RBC (Bld) [#/Vol] 0 10*3/uL Normal 0-[address] [facility] Comment on above: Performed By: #### L 503.6620, L100.0100, L500.2500 ####[facility] [address] [place], [address] Platelet mean volume (Bld) [Entitic vol] 10.0 fL Normal 6.2-12.[address] [facility] Comment on above: Performed By: #### L 503.6620, L100.0100, L500.2500 ####[facility] [address] [place], [address] Platelets (Bld) [#/Vol] 263 10*3/uL Normal 150-[address] [facility] Comment on above: Performed By: #### L 503.6620, L100.0100, L500.2500 ####[facility] [address] [place], [address] RBC (Bld) [#/Vol] 4.40 10*6/uL Normal 4.2-5.4 [facility] Comment on above: Performed By: #### L 503.6620, L100.0100, L500.2500 ####[facility] [address] [place], [address] RDW SD 42.4 fl Normal 35.1-43.[address] [facility] Comment on above: Performed By: #### L 503.6620, L100.0100, L500.2500 ####[facility] [address] [place], [address] WBC (Bld) [#/Vol] 6.7 10*3/uL Normal 4.4-11.0 [facility] Comment on above: Performed By: #### L 503.6620, L100.0100, L500.2500 ####[facility] [address] [place], [address] Cardiology Visit Reporton Cardiology Visit Report [facility] [address] [place] [address] OFFICE VISIT Date of Service: 12/22/23 MR#: [id number] Acct: [id number] Name: ELIZABETH PERSAUD Rep #: [id number] : 1945 Provider: DANYA dalal Age/Sex: 78/F Location: [facility] Status: Signed HPI HPI History of Present Illness Details: ELIZABETH PERSAUD, is a 78 F who presents to the office for a cardiovascular follow up visit. She has a history of previous atrial fibrillation for which she was hospitalized and underwent a ARIS guided cardioversion.???Patient presented to her PCP in May 2022 with complaints of shortness of breath with minimal exertion and leg weakness. She states her heart rates have been in the 90s while working, and increases to 140 on her recumbent exercise bike. At some point her flecainide had gotten discontinued and she was placed on amiodarone for her atrial fibrillation. She states that she is allergic to amiodarone due to worsening dyspnea on exertion. This was discontinued at her last office visit, and she was placed back on flecainide. She had been scheduled for an outpatient cardioversion on 08/06/2022, but had successfully cardioverted on her own. Patient presented to the emergency room on 08/08/2022 with strokelike symptoms. Patient presented because of facial droop, altered sensation and left sided weakness. She had not missed any doses of her Eliquis. Her heart rate was noted to be low at 38. Her metoprolol and Flecainide were placed on hold at that time. Her heart rate did improve. Her CT of the head without contrast revealed no evidence of subdural, epidural, subarachnoid hemorrhage or intraparenchymal hemorrhage. There was no obvious stroke noted. Her MRI of the brain was also negative. 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 She was later discharged from the hospital and instructed to follow with neurology for suspected stroke due to symptomatology. She states she is scheduled to see vascular- Dr. Persaud at [facility] next week. She was seen in the Emergency Room on 12/31/2022 for shortness of breath. Per EMS report she was noted be 80% on room air and placed on CPAP therapy. She received IV Lasix. Her BNP, 394.7, was elevated and her troponin was normal. Her ECG showed sinus rhythm. She was admitted and treated for respiratory failure secondary to acute on chronic congestive heart failure and suspected pneumonia. She underwent an echocardiogram on 12/31/2022 that showed ejection fraction of 60% and moderately enlarged left atrium. She denies chest, arm, jaw, or neck discomfort. She acknowledges occasional palpitations that she describes as fast. She denies bilateral lower extremity edema. She denies claudication. She notes shortness of breath with activity. She denies shortness of breath at rest, orthopnea, or PND. She denies chronic cough. She denies significant, sudden weight gain. She denies lightheadedness, dizziness, near-syncope, or syncope. She denies blood in urine, blood in stool, or epistaxis. He denies fever with chills. She denies myalgia. She states fatigue. She does acknowledge a recent fall. Her exercise level has remained stable. 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 Accompanied by: Self Is patient in pain?: No Allergies etodolac Allergy (Intermediate, Verified 12/22/23 11:02) Other diltiazem HCl (From Cardizem) Allergy (Verified 12/22/23 11:02) Swelling of face and neck naproxen Allergy (Verified 12/22/23 11:02) Swelling (whole body) prednisone Allergy (Verified 12/22/23 11:02) Other amiodarone Adverse Reaction (Severe, Verified 12/22/23 11:02) Severe dyspnea after taking PO Amiodarone adhesive Adverse Reaction (Verified 12/22/23 11:02) Rash albuterol Adverse Reaction (Verified 12/22/23 11:02) Other codeine Adverse Reaction (Verified 12/22/23 11:02) Vomiting hydrocodone bitartrate (From Vicodin) Adverse Reaction (Verified 12/22/23 11:02) Vomiting morphine Adverse Reaction (Verified 12/22/23 11:02) Vomiting Medications ???Medication ???Instructions ???Recorded ???Confirmed ???Type multivitamin with folic acid 400 1 tab PO DAILY supplement 03/15/13 12/22/23 History mcg tablet calcium carbonate 500 mg PO DAILY Check with primary 06/25/21 12/22/23 History doctor cyclobenzaprine 10 mg tablet 10 mg PO HS PRN muscle spasm 07/25/22 12/22/23 History sucralfate 100 mg/mL oral 10 ml PO ACHS 12/31/22 12/22/23 History suspension furosemide 40 mg tablet 40 mg PO .COMPLEX #180 tabs 01/27/23 12/22/23 Rx po (more content not included)... Normal [facility] CBC panel Auto (Bld)on 12-14 Erythrocyte distribution width (RBC) [Ratio] 12.4 % Normal 11.5-15.[address] [facility] Comment on above: Order Comment: Speci men Type: BLOOD SPECIMENOrdering Facility: [facility] Address: [address] [place] [address] Performed By: #### 5 8410-2 ####[facility] [id number] [place] [address] [place] Hematocrit (Bld) [Volume fraction] 42.0 % Normal 36.0-46.[address] [facility] Comment on above: Order Comment: Speci men Type: BLOOD SPECIMENOrdering Facility: [facility] Address: [address] [place] [address] Performed By: #### 5 8410-2 ####[facility] R[facility] [id number] [address] [place] Hemoglobin (Bld) [Mass/Vol] 14.1 g/dL Normal 11.5-15.[address] [facility] Comment on above: Order Comment: Speci men Type: BLOOD SPECIMENOrdering Facility: [facility] Address: [address] [place] [address] Performed By: #### 5 8410-2 ####[facility] [id number] [place] [address] [place] MCH (RBC) [Entitic mass] 30.8 pg Normal 26.0-34.[address] [facility] Comment on above: Order Comment: Speci men Type: BLOOD SPECIMENOrdering Facility: [facility] Address: [address] [place] [address] Performed By: #### 5 8410-2 ####[facility] MILLWNCLIA [id number] [place] [address] [place] MCHC (RBC) [Mass/Vol] 33.6 g/dL Normal 30.5-36.0 [facility] Comment on above: Order Comment: Speci men Type: BLOOD SPECIMENOrdering Facility: [facility] Address: [address] [place] [address] Performed By: #### 5 8410-2 ####[facility] [id number] [place] [address] [place] MCV (RBC) [Entitic vol] 91.7 fL Normal 80.0-100.[address] [facility] Comment on above: Order Comment: Speci men Type: BLOOD SPECIMENOrdering Facility: [facility] Address: [address] [place] [address] Performed By: #### 5 8410-2 ####[facility] [id number] [place] [address] [place] Nucleated RBC (Bld) [#/Vol] 10*3/uL Normal <0.[address] [facility] Comment on above: Order Comment: Speci men Type: BLOOD SPECIMENOrdering Facility: [facility] Address: [address] [place] [address] Performed By: #### 5 8410-2 ####[facility] WEST[facility] [id number] [address] [place] Platelet mean volume (Bld) [Entitic vol] 9.6 fL Normal 9.0-12.[address] [facility] Comment on above: Order Comment: Speci men Type: BLOOD SPECIMENOrdering Facility: [facility] Address: [address] [place], [place] [address] Performed By: #### 5 8410-2 ####[facility]ENC[facility] [id number] [place] [address] [place] Platelets (Bld) [#/Vol] 272 10*3/uL Normal 150-[address] [facility] Comment on above: Order Comment: Speci men Type: BLOOD SPECIMENOrdering Facility: [facility] Address: [address] [place] [address] Performed By: #### 5 8410-2 ####[facility] [id number] [place] [address] [place] RBC (Bld) [#/Vol] 4.58 10*6/uL Normal 3.90-5.20 [facility] Comment on above: Order Comment: Speci men Type: BLOOD SPECIMENOrdering Facility: [facility] Address: [address] [place] [address] Performed By: #### 5 8410-2 ####[facility] [id number] [place] [address] [place] WBC (Bld) [#/Vol] 7.21 10*3/uL Normal 3.70-11.00 [facility] Comment on above: Order Comment: Speci men Type: BLOOD SPECIMENOrdering Facility: [facility] Address: [address] [place] [address] Performed By: #### 5 8410-2 ####[facility] [id number] [place] [address] [place] CNOVon 12-15-2023 CNOV Office Visit (PULMWS ) ELIZABETH PERSAUD ([id number]) 1945 [facility] Date Time Provider Department 12/15/23 9:30 AM LAITH MONTES PULMWS During your visit today, we recorded the following information about you: Pulse Respiration Blood pressure Weight 102/minute 12/minute 100/64 60.3 kg Laith Montes MD 12/15/2023 11:53 AM Signed . Respiratory [place] Note Patient name: Elizabeth Persadu PCP: Minerva Shaver MD CC: follow up COPD HPI: Elizabeth Persaud 78 year old female former 70 pack year smoker, quitting in 2005 with PMH significant for scoliosis, HFpEF, HTN, GERD, moderate COPD, AF, nocturnal oxygen use presenting for routine follow-up visit. Current therapy with Trelegy Ellipta and as needed albuterol. From a respiratory standpoint she states she has been doing well. Denies significant dyspnea. No cough or sputum production. No audible wheezing. She has not been ill with any upper respiratory infections. She is compliant with use of her Trelegy Ellipta. No need for her albuterol inhaler. Her updated pulmonary function test show marked improvement in her airflow obstruction with FEV1 79% predicted up from 55% predicted. She continues to have falling episodes related to hypotension as well as vertigo. She has a history of BPPV requiring Kan maneuvers in the past. She has been using meclizine with some relief. DME: [employer] DATA: PFT: Review of spirometry shows small airways obstruction PFT 01/2023 Imaging / Diagnostic Studies: PAST MEDICAL HISTORY No date: Anxiety No date: Arthritis No date: Atrial fibrillation ([facility]) Comment: s/p ablation 07/2015 No date: Backache, unspecified No date: Moses's esophagus No date: Basal cell carcinoma No date: BPPV (benign paroxysmal positional vertigo) No date: Cancer ([facility]) Comment: Basal cell on forehead No date: Carpal tunnel syndrome, bilateral No date: Congestive heart failure (HCC) No date: COPD (chronic obstructive pulmonary disease) ([facility]) No date: DVT (deep venous thrombosis) ([facility]) Comment: remote No date: Esophageal reflux 10/31/2018: History of cardioversion No date: HTN (hypertension) No date: Irritable bowel syndrome 09/14/2018: Left carotid bruit Comment: noted by cardiology 11/08/2016: Left ventricular systolic dysfunction No date: Other specified abdominal hernia without obstruction or gangrene No date: PONV (postoperative nausea and vomiting) No date: S/P cervical spinal fusion No date: Scoliosis ALLERGIES Allergen Reactions Cardizem [Diltiazem* Swelling Codeine Vomiting Ringing in Ears. Entex [Phenylephrin* Rash Etodolac Other: See Comments Heart palpitations Meloxicam Other: See Comments Heart palpitations Naproxen Swelling Possible allergy? Pt relates to naproxen Tape [Adhesive Tape* Rash Trazodone Other: See Comments rapid hear beat Zantac [Ranitidine * Rash, Swelling nystatin (MYCOSTATIN) 100,000 unit/mL suspension Take 5 mL by mouth four times daily. 1tsp swish in mouth for several minutes, then swallow (or expectorate) 4 times daily until gone. omeprazole (PRILOSEC) 40 mg capsule Take 1 capsule by mouth once daily. metoprolol succinate ER (TOPROL XL) 50 mg 24 hr tablet Take 1 tablet by mouth two times a day. (Patient taking differently: Take 25 mg by mouth two times a day.) dsevbsrcpbh-qpxhmvquh-wgtgu ter (TRELEGY ELLIPTA) 100-62.5-25 mcg inhalation powder Inhale 1 Puff as instructed once daily. flecainide (TAMBOCOR) 100 mg tablet Take 1 tablet by mouth two times a day. fluticasone (FLONASE) 50 mcg/actuation nasal spray Use 2 Sprays in each nostril once daily. Rinse mouth after use. JARDIANCE 10 mg tablet Take 10 mg by mouth once daily. Ipratropium (ATROVENT) 17 mcg/actuation inhaler Inhale 2 Puffs as instructed every 6 hours as needed for wheezing/shortness of breath. furosemide (LASIX) 40 mg tablet Take 1 [...] 1,000 mg by mouth five times daily. PJSUXCL-UOHMVQHOV-SKBY ORAL Take by mouth. sucralfate (CARAFATE) 100 mg/mL suspension Take 10 mL by mouth before meals and at bedtime. (560cc=2wks) (Patient not taking: Reported on 12/15/2023) Social History Tobacco Use Smoking status: Fo (more content not included)... Normal [facility] Comprehensive metabolic 2000 panelon 12-15-2023 Albumin [Mass/Vol] 4.3 g/dL Normal 3.9-4.9 [facility] Comment on above: Order Comment: Speci men Type: BLOOD SPECIMENOrdering Facility: [facility] Address: [address] [place] [address] Performed By: #### 2 4323-8 ####[facility] [id number] [place] [address] [place] ALP [Catalytic activity/Vol] 97 U/L Normal 34-[address] [facility] Comment on above: Order Comment: Speci men Type: BLOOD SPECIMENOrdering Facility: [facility] Address: [address] [place] [address] Performed By: #### 2 4323-8 ####[facility] [facility] [id number] [place] [address] [place] ALT [Catalytic activity/Vol] 23 U/L Normal 7-[address] [facility] Comment on above: Order Comment: Speci men Type: BLOOD SPECIMENOrdering Facility: [facility] Address: [address] [place] [address] Performed By: #### 2 4323-8 ####[facility] [id number] [place] [address] [place] Anion gap [Moles/Vol] 12 mmol/L Normal 8-15 [facility] Comment on above: Order Comment: Speci men Type: BLOOD SPECIMENOrdering Facility: [facility] Address: [address] [place] [address] Performed By: #### 2 4323-8 ####[facility] [id number] [place] [address] [place] AST [Catalytic activity/Vol] 21 U/L Normal 13-[address] [facility] Comment on above: Order Comment: Speci men Type: BLOOD SPECIMENOrdering Facility: [facility] Address: [address] [place] [address] Performed By: #### 2 4323-8 ####[facility] [id number] [place] [address] [place] Bilirubin [Mass/Vol] 0.8 mg/dL Normal 0.2-1.3 [facility] Comment on above: Order Comment: Speci men Type: BLOOD SPECIMENOrdering Facility: [facility] Address: [address] [place] [address] Performed By: #### 2 4323-8 ####[facility] [id number] [place] [address] [place] Calcium [Mass/Vol] 9.8 mg/dL Normal 8.5-10.2 [facility] Comment on above: Order Comment: Speci men Type: BLOOD SPECIMENOrdering Facility: [facility] Address: [address] [place] [address] Performed By: #### 2 4323-8 ####[facility] [id number] [place] [address] [place] Chloride [Moles/Vol] 100 mmol/L Normal 98-107 [facility] Comment on above: Order Comment: Speci men Type: BLOOD SPECIMENOrdering Facility: [facility] Address: [address] [place] [address] Performed By: #### 2 4323-8 ####[facility] [id number] [place] [address] [place] CO2 [Moles/Vol] 28 mmol/L Normal 22-[address] [facility] Comment on above: Order Comment: Speci men Type: BLOOD SPECIMENOrdering Facility: [facility] Address: [address] [place] [address] Performed By: #### 2 4323-8 ####[facility] [id number] [place] [address] [place] Creatinine [Mass/Vol] 0.79 mg/dL Normal 0.58-0.96 [facility] Comment on above: Order Comment: Speci men Type: BLOOD SPECIMENOrdering Facility: [facility] Address: [address] [place] [address] Performed By: #### 2 4323-8 ####[facility] [id number] [place] [address] [place] Creatinine and Glomerular filtration rate.predicted panel (S/P/Bld) 78 mL/min/1.73m??? Normal >=[address] [facility] Comment on above: Order Comment: Speci men Type: BLOOD SPECIMENOrdering Facility: [facility] Address: [address] [place] [address] Result Comment: Natasha mated Glomerular Filtration Rate (eGFR) is calculated using the 2020 CKD-EPI creatinine equation. This equation utilizes serum creatinine, sex, and age as parameters. The creatinine assay has traceable calibration to isotope dilution-mass spectrometry. Refer to KDIGO guidelines for clinical interpretation. In patients with unstable renal function, e.g. those with acute kidney injury, the eGFR may not accurately reflect actual GFR. Performed By: #### 2 4323-8 ####[facility] [id number] [place] [address] [place] Glucose [Mass/Vol] 96 mg/dL Normal 74-99 [facility] Comment on above: Order Comment: Speci men Type: BLOOD SPECIMENOrdering Facility: [facility] Address: [address] [place], [place] [address] Result Comment: The [place] Diabetes Association (ADA) provides guidance for cutoff values for fasting glucose and random glucose. The ADA defines fasting as no caloric intake for at least 8 hours. Fasting plasma glucose results between 100 to 125 [...] Standards of Medical Care in Diabetes 2016, [place] Diabetes Association. Diabetes Care. 2016.39(Suppl 1). Performed By: #### 2 4323-8 ####[facility]WS[facility] SERVICESA [id number] [place] [address] [place] Potassium [Moles/Vol] 3.9 mmol/L Normal 3.7-5.1 [facility] Comment on above: Order Comment: Darryl cintron Type: BLOOD SPECIMENOrdering Facility: [facility] Address: [address] [place] [address] Performed By: #### 2 4323-8 ####[facility] [id number] [place] [address] [place] Protein [Mass/Vol] 6.3 g/dL Normal 6.3-8.0 [facility] Comment on above: Order Comment: Libbyi men Type: BLOOD SPECIMENOrdering Facility: [facility] Address: [address] [place], [place] [address] Performed By: #### 2 4323-8 ####[facility] [id number] [place] [address] [place] Sodium [Moles/Vol] 140 mmol/L Normal 136-144 [facility] Comment on above: Order Comment: Speci men Type: BLOOD SPECIMENOrdering Facility: [facility] Address: [address] [place] [address] Performed By: #### 2 4323-8 ####[facility] [id number] [place] [address] [place] Urea nitrogen [Mass/Vol] 24 mg/dL High 7- [facility] Comment on above: Order Comment: Speci men Type: BLOOD SPECIMENOrdering Facility: [facility] Address: [address] [place] [address] Performed By: #### 2 4323-8 ####[facility] [id number] [place] [address] [place] Lipid 1996 panelon 4 Cholesterol [Mass/Vol] 197 mg/dL Normal <200 [facility] Comment on above: Order Comment: Speci men Type: BLOOD SPECIMENOrdering Facility: [facility] Address: [address] [place] [address] Result Comment: <200 mg/dL, Desirable 200-239 mg/dL, Borderline high >239 mg/dL, High Performed By: #### 2 4331-1 ####[facility] LABCLIA [id number] [facility] [id number] [address] [place] [facility] [id number] [place] [address] [place] Cholesterol in HDL [Mass/Vol] 70 mg/dL Normal >[address] [facility] Comment on above: Order Comment: Speci men Type: BLOOD SPECIMENOrdering Facility: [facility] Address: [address] [place] [address] Result Comment: 40-5 9 mg/dL, Acceptable >59 mg/dL, High: Negative risk factor for coronary heart disease <40 mg/dL, Low: Positive risk factor for coronary heart disease Performed By: #### 2 4331-1 ####[facility] LABCLIA [id number] [address] [id number] [place] [address] [place] Cholesterol in LDL [Mass/Vol] 113 mg/dL High <[address] [facility] Comment on above: Order Comment: Speci men Type: BLOOD SPECIMENOrdering Facility: [facility] Address: [address] [place] [address] Result Comment: <100 mg/dL, Optimal 100-129 mg/dL, Near optimal/above optimal 130-159 mg/dL, Borderline high 160-189 mg/dL, High >189 mg/dL, Very high Secondary prevention optimal LDL Cholesterol levels are recommended to be < 70 mg/dL Performed By: #### 2 4331-1 ####[facility] LABCLIA [id number] [address] [id number] [place] [address] [place] Cholesterol in LDL/Cholesterol in HDL [Mass ratio] 1.61 {ratio} Normal <2.[address] [facility] Comment on above: Order Comment: Speci men Type: BLOOD SPECIMENOrdering Facility: [facility] Address: [address] [place] [address] Result Comment: Reftito saunders: 1. National Cholesterol Education Program ATP III Guideline At-A-Glance Quick Desk Reference: National Heart, Lung, and Blood [place]. National Institutes of Health. 2001: NIH Publication No. 01-3305. 2. An International Atherosclerosis Society position paper: global recommendations for the management of dyslipidemia: executive summary, Atherosclerosis. 2014: 232(2):410-413. Performed By: #### 2 4331-1 ####[facility] LABCLIA [id number] [address] [id number] [place] [address] [place] Cholesterol in VLDL [Mass/Vol] 14 mg/dL Normal <[address] [facility] Comment on above: Order Comment: Speci men Type: BLOOD SPECIMENOrdering Facility: [facility] Address: [address] [place] [address] Performed By: #### 2 4331-1 ####[facility] LABCLIA [id number] [address] [id number] [place] [address] [place] Cholesterol non HDL [Mass/Vol] 127 mg/dL Normal <[address] [facility] Comment on above: Order Comment: Speci men Type: BLOOD SPECIMENOrdering Facility: [facility] Address: [address] [place] [address] Result Comment: <130 mg/dL, Optimal 130-159 mg/dL, Near optimal/above optimal 160-189 mg/dL, Borderline high 190-219 mg/dL, High >219 mg/dL, Very high Secondary prevention optimal non HDL Cholesterol levels are recommended to be <100 mg/dL Performed By: #### 2 4331-1 ####[facility] LABCLIA [id number] [address] [id number] [place] [address] [place] Cholesterol.total/Chol esterol in HDL [Mass ratio] 2.81 {ratio} Normal <5.[address] [facility] Comment on above: Order Comment: Speci men Type: BLOOD SPECIMENOrdering Facility: [facility] Address: [address] [place] [address] Performed By: #### 2 4331-1 ####[facility] LABCLIA [id number] [address] [id number] [place] [address] [place] FASTING TIME [address] [facility] Comment on above: Order Comment: Speci men Type: BLOOD SPECIMENOrdering Facility: [facility] Address: [address] [place] [address] Performed By: #### 2 4331-1 ####[facility] LABCLIA [id number] [address] [id number] [place] [address] [place] Triglyceride [Mass/Vol] 70 mg/dL Normal <[address] [facility] Comment on above: Order Comment: Speci men Type: BLOOD SPECIMENOrdering Facility: [facility] Address: [address] [place] [address] Result Comment: <150 mg/dL, Normal 150-199 mg/dL, Borderline high 200-499 mg/dL, High >499 mg/dL, Very high Performed By: #### 2 4331-1 ####[facility] LABCLIA [id number] [address] [id number] [place] [address] [place] ANES POSTPROC EVALon 024 ANES POSTPROC EVAL HNO ID: [id number] Author: JOVANNI CASTRO MD Service: Anesthesiology Author Type: Anesthesiologist Type: Anesthesia Postprocedure Evaluation Filed: 08/18/2023 12:40 Note Text: POST ANESTHESIA EVALUATION NOTE : 1945 Procedure Summary Date: 08/18/23 Room / Location: [facility] Endoscopy Anesthesia Start: 1117 Anesthesia Stop: 1144 Procedure: EGD DIAGNOSTIC Diagnosis: Dysphagia, unspecified type (Dysphagia) Scheduled Providers: Katheryn Stokes MD; Fabian Suarez APRN.SLUBBER RUNNER; Ok Walker MD Responsible Provider: Ok Walker MD Anesthesia Type: MAC ASA Status: 3 Anesthesia Type: MAC Last Vitals Vitals Value Taken Time BP 120/70 08/18/23 1230 Temp 36 ?C (96.8 ?F) 08/18/23 1230 HR SpO2 50 08/18/23 1212 Resp 17 08/18/23 1230 SpO2 96 % 08/18/23 1230 Post Anesthesia Patient Status Patient Evaluation: PACU. PACU/ICU Patient Condition: stable. Anticipated Disposition: phase 2 then home. Neurological Status: aware and responsive. Pulmonary Status: breathing comfortably on room air Airway Control: returned to baseline unsupported. Cardiovascular Status: stable. Pain Management: clinically adequate - multimodal analgesia pain management approach Postoperative Hydration: acceptable. Intraoperative Events: no significant anesthesia events Recommendation: continue current plan of care. Anesthesia Observations No Documentation SIGNATURE: Jovanni Castro MD PATIENT NAME: Elizabeth Persaud DATE: August 18, 2023 TIME: 12:40 PM CSN: [id number] Normal [facility] ANES PRE-OPon 08-18-2023 ANES PRE-OP HNO ID: [id number] Author: OK WALKER MD Service: Anesthesiology Author Type: Anesthesiologist Type: Anesthesia Preprocedure Evaluation Filed: 08/18/2023 10:33 Note Text: ANESTHESIOLOGY DAY OF SURGERY NOTE : 1945 Procedure Information Date/Time: 08/18/23 1200 Scheduled providers: Katheryn Stokes MD; Fabian Suarez APRN.SLUBBER RUNNER; Ok Walker MD Procedure: EGD DIAGNOSTIC Location: [facility] Endoscopy Estimated body mass index is 24.94 kg/m? (pended) as calculated from the following: Height as of 05/30/23: 154.9 cm (5' 1). Weight as of 06/30/23: (P) 59.9 kg (132 lb). Most recent hematocrit and potassium results: Hematocrit 36.4 12/26/2022 Potassium 4.1 12/26/2022 Relevant Problems CARDIO (+) Atrial fibrillation (HCC) (+) CHF (congestive heart failure) (HCC) (+) Heart murmur (+) Hypertension (+) Peripheral arterial disease (HCC) -RENAL (+) Calculus of kidney NEURO-PSYCH (+) History of DVT (deep vein thrombosis) PULMONARY (+) Moderate COPD (chronic obstructive pulmonary disease) (HCC) Other (+) Generalized arthritis I - PHYSICAL EVALUATION AIRWAY Patient intubated: No. Tracheostomy tube not present Mallampati: II. TM distance: >3 FB. Neck ROM: full ROM without neurological symptoms. Mouth opening: adequate. Short neck: no. Thick neck: no DENTAL Dental findings: edentulous. Additional exam findings: yes. CARDIOVASCULAR Rhythm: regular PULMONARY Breath sounds clear to auscultation. II - ANESTHESIA PLAN ASA Score: 3 Anesthetic Plan: MAC The patient is not a current smoker. NPO Status: adequate Beta Karson Monitoring Plan Monitoring plan: standard ASA. Post Procedure Analgesic Plan Postoperative analgesic plan: multimodal analgesia. Informed Consent Anesthetic risks, benefits, alternatives, personnel and consent discussed: yes. Patient / Responsible Republican agrees to proceed: yes Patient / Surrogate agrees to blood products: blood products not planned DNR status not reviewed with patient and/or family prior to surgery. Significant changes in the patient condition since the History and Physical, not otherwise documented in primary service progress note: no. Potential Anesthesia issues that may suggest increased risk of complications or contraindication to planned procedure: none. Vitals Value Taken Time BP 136/63 08/18/23 1031 Pulse 55 08/18/23 1031 Resp 16 08/18/23 1031 Temp 36.6 ?C (97.9 ?F) 08/18/23 1031 SpO2 97 % 08/18/23 1031 Outpatient Medications as of 08/18/2023 Medication Sig - lxdiaeusyml-cbrlypwrk-jfssp ter (TRELEGY ELLIPTA) 100-62.5-25 mcg inhalation powder Inhale 1 Puff as instructed once daily. - diclofenac, EC, (VOLTAREN) 75 mg EC tablet Takes once daily PRN for acute pain/inflammation. Take with food. - flecainide (TAMBOCOR) 100 mg tablet Take 1 tablet by mouth two times a day. - JARDIANCE 10 mg tablet Take 10 mg by mouth once daily. - metoprolol succinate ER (TOPROL XL) 25 mg 24 hr tablet Take 0.5 tablets by mouth twice daily. (Patient taking differently: Take 50 mg by mouth two times a day.) - Ipratropium (ATROVENT) 17 mcg/actuation inhaler Inhale 2 Puffs as instructed every 6 hours as needed for wheezing/shortness of breath. - famotidine (PEPCID) 20 mg tablet Take 1 tablet by mouth twice daily. - furosemide (LASIX) 40 mg tablet Take 1 tablet by mouth twice daily. (Patient taking differently: Take 40 mg by mouth once daily. Take another dose daily as needed for leg swelling) - apixaban (ELIQUIS) 5 mg tab(s) Take by mouth twice daily. - Bifidobacterium infantis (ALIGN) 10.5 mg (10 million cell) chew Take 1 tablet by mouth once daily. - potassium chloride ER (K-DUR, KLOR-CON) 20 mEq tablet Take 1 tablet by mouth twice daily. (Patient taking differently: Take 20 mEq by mouth once daily. Take extra dose daily when takes extra Lasix dose) - MULTIVITAMIN WITH MINERALS (ONE-A-DAY 50 PLUS ORAL) Take by mouth. - CALCIUM CARBONATE/VITAMIN D3 (VITAMIN D-3 ORAL) Take 1,000 mg by mouth five times daily. - FGVRHFL-PWZTUCGGA-BENL ORAL Take by mouth. - sucralfate (CARAFATE) 100 mg/mL suspension Take 10 mL by mouth before meals and at bedtime. (560cc=2wks) - nystatin (MYCOSTATIN) 100,000 unit/mL suspension Take 5 mL by mouth four times daily. 1tsp swish in mouth for several minutes, then swallow (or expectorate) 4 times daily until gone. - valsartan (DIOVAN) 40 mg tablet Take 1 tablet by mouth once daily. - fluticasone (FLONASE) 50 mcg/actuation nasal spray Use 2 Sprays in each nostril once daily. Rinse mouth after use. - lidocaine (LIDODERM) 5 % Apply 1 Patch as directed every 24 hours. Apply patch for 12 hours, remove, and then wait 12 more hours before applying a new patch. Location: mid back (Patient not taking: Reported on 05/30/2023) - sucralfate (CARAFATE) 1 gram tablet Take 1 tablet by mouth before meals and at bedtime. - melatonin 3 mg ODT Take 1 (more content not included)... Normal [facility] EGD Study observation Moustapha lima 08-18-2023 [facility] GLUCOSE, BLOOD (POC)on 08-17 Glucose [Mass/Vol] 96 mg/dL 74 - 99 mg/dL [facility] HISTORY PHYSICALon HISTORY PHYSICAL HNO ID: [id number] Author: KATHERYN STOKES MD Service: General Surgery Author Type: Physician Type: H&P Filed: 08/18/2023 11:17 Note Text: HISTORY AND PHYSICAL Elizabeth Persaud 1945 REFERRING PHYSICIAN: No ref. provider found CHIEF COMPLAINT: Consult (Bloody stools) HPI: The patient is a 78 year old female referred for endoscopy. Elizabeth notes worsening issues with dysphagia. The patient notes a history of epigastric and upper abdominal discomfort. She notes the symptoms tend to come and go. She notes an episode of blood in her stool 1 week previously with pain prior to the bowel movement. She had looser stools at that time and then streaked with blood has had no blood or lower issues since that time. Elizabeth notes a history of a hiatal hernia and reflux. The patient had been doing well with the reflux but now notes that she occasionally feels like she has a lump or discomfort in her epigastrium without true pain and occasionally notes that food sticks. The patient had a swallow study performed at [facility] which she noted was demonstrating food [...] on November 22, [address] Carmencita Vázquez. He noted on upper endoscopy Impression: - Brianne Grade I reflux esophagitis. Biopsied. - Normal stomach. Biopsied. - Normal examined duodenum. Lower endoscopy: Impression: - Four 5 mm polyps at 20 cm proximal to the anus and at 30 cm proximal to the anus. Resected and retrieved. - Diverticulosis in the sigmoid colon and in the descending colon. - External and internal hemorrhoids. Pathology demonstrated: Scleroscope Tester Specimen originated from [facility] Specimen #: [id number] Submitting Physician: CARMENCITA CORDOBA MD FINAL DIAGNOSIS 1. Gastric antrum, [...] me today at the request of Dr. Minerva Shaver MD for my opinion and advice [...] eosinophil per high power field), consistent with reflu (more content not included)... Normal [facility] NURSING PROGon 08-18-2023 NURSING PROG HNO ID: [id number] Author: AMMY BAER, RN Service: Nursing Author Type: Registered Nurse Type: Nursing Progress Note Filed: 08/18/2023 10:50 Note Text: Other: 1030 Dr. Walker aware pt took Jardiance yesterday 08/17/23 at 1230. Also Eliquis 08/17/23 as well. Plans are to go ahead with procedure. [facility] SURGICAL PATHOLOGYon 024 CASE REPORT [facility] Comment on above: Order Comment: Darryl cintron Type: TISSUE SPECIMEN [facility] Address: [address] [place] [address] Result Comment: Surg ica Pathology Report Case: [id number] Authorizing Provider: Katheryn Stokes MD Collected: 08/18/2023 11:30 AM Ordering Location: [facility] Endoscopy Received: 08/18/2023 01:21 PM Pathologist: Rome Rodriguez MD Specimens: A) - ANTRUM (STOMACH) BIOPSY, R/O H. Pylori B) - ESOPHAGUS LOWER BIOPSY, R/O Moses's C) - ESOPHAGUS LOWER BIOPSY, 3cm Moses's segment Performed By: #### S #### [facility] CLIA [id number] [address] [place] [address] [place] [address] [place] FINAL DIAGNOSIS [facility] Comment on above: Order Comment: Darryl cintron Type: TISSUE SPECIMEN [facility] Address: [address] [place] [address] Result Comment: A. S tomach, antrum, biopsy: - Antral reactive gastropathy. - No morphological evidence of Helicobacter pylori organisms. - No evidence of intestinal metaplasia or dysplasia. B. Esophagus, lower, biopsy: - Inflamed gastric cardia-type mucosa. - No evidence of intestinal metaplasia or dysplasia. C. Esophagus, lower, biopsy: - Squamous epithelium with no significant diagnostic alteration. - Inflamed gastric cardia-type mucosa. - No evidence of intestinal metaplasia or dysplasia. Performed By: #### S #### [facility] CLIA [id number] [address] [place] [address] [place] FINAL PERFORMING LAB Normal [facility] Comment on above: Order Comment: Speci men Type: TISSUE SPECIMEN [facility] Address: [address] [place] [address] Result Comment: Diag nostic interpretation performed at [facility], [address] [place] [address] CLIA# [id number] Director Of Payroll: Aniceto Bee M.D. Performed By: #### S #### [facility] CLIA [id number] [address] [place] [address] OF [facility] GROSS DESCRIPTION Normal [facility] Comment on above: Order Comment: Speci men Type: TISSUE SPECIMEN [facility] Address: [address] [place] [address] Result Comment: A. A NTRUM (STOMACH) BIOPSY Received in formalin is one piece of flowers, soft tissue measuring 0.3 x 0.2 x 0.2 cm. Totally submitted in one cassette. B. ESOPHAGUS LOWER BIOPSY Received in formalin is one piece of flowers-white, soft tissue measuring 0.6 x 0.1 x 0.2 cm. Totally submitted in one cassette. C. ESOPHAGUS LOWER BIOPSY Received in formalin is one piece of flowers-white, soft tissue measuring 0.4 x 0.2 x 0.2 cm. Totally submitted in one cassette. Gross examination performed at [facility], [address] [place] [address] August 18, 2023 8:14 PM Performed By: #### S #### [facility] CLIA [id number] [address] [place] [address] [place] Upper GI endoscopyon 024 Upper GI endoscopy [facility] Gastrointestinal Endoscopy Patient Name: Elizabeth Persaud Procedure Date: 08/18/2023 11:06 AM Date of : 1945 Admit Type: Outpatient Age: 78 Room: [facility] Gender: Female Note Status: Finalized Attending MD: Katheryn Stokes MD, [id number] Procedure: Upper GI endoscopy Indications: Dysphagia Providers: Katheryn Stokes MD Patient Profile: This is a 78 year old female. Refer to note in patient chart for documentation of history and physical. Patient has symptoms. Referring Physician: Katheryn Stokes MD (Referring MD) Medicines: Monitored Anesthesia Care Complications: No immediate complications. Requesting Provider: Procedure: Pre-Anesthesia Assessment: - Prior to the procedure, a History and Physical was performed, and patient medications and allergies were reviewed. The patient is competent. The risks and benefits of the procedure and the sedation options and risks were discussed with the patient. All questions were answered and informed consent was obtained. Patient identification and proposed procedure were verified by the physician, the nurse and the grease press helper in the procedure room. Mental Status Examination: alert and oriented. Airway Examination: normal oropharyngeal airway and neck mobility. Respiratory Examination: clear to auscultation. CV Examination: normal. Prophylactic Antibiotics: The patient requires prophylactic antibiotics for the planned performance of dilation. Prior Anticoagulants: The patient has taken Eliquis (apixaban), last dose was 1 day prior to procedure. ASA Grade Assessment: III - A patient with severe systemic disease. After reviewing the risks and benefits, the patient was deemed in satisfactory condition to undergo the procedure. The anesthesia plan was to use monitored anesthesia care (MAC). Immediately prior to administration of medications, the patient was re-assessed for adequacy to receive sedatives. The heart rate, respiratory rate, oxygen saturations, blood pressure, adequacy of pulmonary ventilation, and response to care were monitored throughout the procedure. The physical status of the patient was re-assessed after the procedure. After obtaining informed consent, the endoscope was passed under direct vision. Throughout the procedure, the patient's blood pressure, pulse, and oxygen saturations were monitored continuously. The Endoscope was introduced through the mouth, and advanced to the jejunum. The upper GI endoscopy was accomplished without difficulty. The patient tolerated the procedure well. Moderate Sedation: MAC anesthesia was administered by the anesthesia team. Total Procedure Duration: 0 hours 5 minutes 28 seconds Findings: The examined jejunum was normal. Biopsies were taken with a cold forceps for histology. Segmental mild inflammation characterized by erosions, erythema and granularity was found in the stomach. Biopsies were taken with a cold forceps for histology. There were esophageal mucosal changes consistent with short-segment Moses's esophagus present in the lower third of the esophagus. The maximum longitudinal extent of these mucosal changes was 2 cm in length. Mucosa was biopsied with a cold forceps for histology in a targeted manner at intervals of 2 cm in the lower third of the esophagus. A total of 2 specimen bottles were sent to pathology. Impression: - Normal examined jejunum. Biopsied. - Gastritis. Biopsied. 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 Biopsied. Recommendation: - Discharge patient to home. - Resume previous diet. - Continue present medications. - Return to my office in 1 week. Procedure Code(s): --- Professional --- 83942, Esophagogastroduodenoscopy, flexible, transoral; with biopsy, single or multiple CPT copyright 2020 [employer]. All rights reserved. The codes documented in this report are preliminary and upon hospital coder review may be revised to meet current compliance requirements. Attending Participation: I was present and participated during the entire procedure, including non-tamez portions, and during the administration and monitoring of Moderate Sedation. Scope In: 11:27:56 AM Scope Out: 11:33:24 AM MD Katheryn Cherry MD 08/18/2023 11:39:46 AM This report has been signed electronically by Katheryn Stokes MD Number of Addenda: 0 Note Initiated On: 08/18/2023 11:06 AM Estimated Blood Loss: Estimated blood loss: none. Normal [facility] Basophil percentageOrdered B y: Susan Bubba on 06-17-2023 Chloride [Moles/Vol] 101 mmol/L 98-107 [facility] Glucose [Mass/Vol] 101 mg/dL 74-106 [facility] Comment on above: Fasting Glucose resu lt from 100 to 125 mg/dL suggests IMPAIRED HOMEOSTASIS per A.D.A. criteria. Potassium [Moles/Vol] 3.8 mmol/L 3.5-5.1 [facility] Sodium [Moles/Vol] 136 mmol/L 136-145 [facility] Laboratory - Chemistry and C hemistry - challengeOrdered By: Susan Mac on 06-17-2023 CO2 [Moles/Vol] 32.0 mmol/L 21.0-32.[address] [facility] Urea nitrogen/Creatinine [Mass ratio] 31.0 mg/mg 10-[address] [facility] No Panel InformationOrdered By: Susan Mac on 06-17-2023 Estimated GFR (MDRD) Amer 60 mL/min >[address] [facility] Comment on above: GFR Calc Estimated GFR (MDRD) Non-Af Amer 50 mL/min >[address] [facility] Comment on above: Non- GFR Calc Serum or plasma calcium michelle urement (mass/volume)Ordered By: Susan Mac on 06-17-2023 Calcium [Mass/Vol] 9.4 mg/dL 8.5-10.1 [facility] Serum or plasma creatinine m easurement (mass/volume)Ordered By: Susan Mac on 06-17-2023 Creatinine [Mass/Vol] 1.13 mg/dL 0.55-1.02 [facility] Comment on above: The validity of the calculated GFR & GFRAA in patients over 70 years has not been determined. Clinical correlation is essential. Serum or plasma urea nitroge n measurement (mass/volume)Ordered By: Susan Mac on 06-17-2023 Urea nitrogen [Mass/Vol] 35 mg/dL 7-[address] [facility] Thin prep Papanicolaou smear with manual screeningOrdered By: Susan Mac on 06-17-2023 Thin prep Papanicolaou smear with manual screening 3 5-[address] [facility] No Panel Informationon 01-27 [facility] SPIROMETRY WITH DILATOR IF O BSTRUCTEDon 01-27-2023 DLCO (ml/min/mmHg) 11.46 ml/min/mmHg [facility] DLCO/VA (ml/min/mmHg/L) 3.44 ml/min/mmHg/L [facility] [id number]% POST (L/S) 0.46 L/S [facility] [id number]% PRE (L/S) 0.35 L/S [facility] FEV1 PRE (L) 0.95 L [facility] FEV1/FVC POST (%) 61 % [facility] FEV1/FVC PRE (%) 59 % [facility] FEV1_POST (L) 1.02 L [facility] FVC POST (L) 1.67 L [facility] FVC PRE (L) 1.62 L [facility] PEF POST (L/S) 2.74 L/S [facility] PEF PRE (L/S) 2.94 L/S [facility] VA (L) 3.33 L [facility] XR Shoulder - right 2 Viewso n 01-27-2023 IMPRESSION: Degenerative disease of the right shoulder. No acute fracture or dislocation. [employer] Certified Network Associate: PSCB Transcribe Date/Time: Jan 27 2023 4:29P Dictated by : ACACIA TORRES MD This examination was interpreted and the report reviewed and electronically signed by: ACACIA TORRES MD on Jan 27 2023 4:30PM [facility] * * *Final Report* * * DATE OF EXAM: Jan 23 2023 4:11PM WOX [id number] - XR SHOULDER 2V AP/TRUE AP RT / PROCEDURE REASON: multiple diagnoses * * * * Physician Interpretation * * * * EXAMINATION: XR SHOULDER 2V AP/TRUE AP RT CLINICAL HISTORY: Right shoulder pain. History of fall. Technique: XR SHOULDER 2V AP/TRUE AP RT -- RIGHT with 2 views on 2 images Comparison: None RESULT: No acute fracture or dislocation. Mild glenohumeral joint space narrowing. There is narrowing of the acromiohumeral interval which can be seen with a chronic rotator cuff tear. DIVISION OF RADIOLOGY Provider, [facility] - 01/27/2023 * * *Final Report* * * DATE OF EXAM: Jan 23 2023 4:11PM WOX 5255 - XR SHOULDER 2V AP/TRUE AP RT / PROCEDURE REASON: multiple diagnoses * * * * Physician Interpretation * * * * EXAMINATION: XR SHOULDER 2V AP/TRUE AP RT CLINICAL HISTORY: Right shoulder pain. History of fall. Technique: XR SHOULDER 2V AP/TRUE AP RT -- RIGHT with 2 views on 2 images Comparison: None RESULT: No acute fracture or dislocation. Mild glenohumeral joint space narrowing. There is narrowing of the acromiohumeral interval which can be seen with a chronic rotator cuff tear. IMPRESSION IMPRESSION: Degenerative disease of the right shoulder. No acute fracture or dislocation. [employer] Certified Network Associate: BALJIT Transcribe Date/Time: Jan 27 2023 4:29P Dictated by : ACACIA TORRES MD This examination was interpreted and the report reviewed and electronically signed by: ACACIA TORRES MD on Jan 27 2023 4:30PM [facility] Absolute lymphocyte countOrd ered By: DIANNA BALLARD on 01-23-2023 Lymphocytes Auto (Unsp spec) [#/Vol] 2.97 10*3/uL 0.83-4.[address] [facility] Basophil percentageOrdered B y: DIANNA BALLARD on 01-23-2023 Basophils/100 WBC (Bld) 0.3 % 0-[address] [facility] Chloride [Moles/Vol] 103 mmol/L 98-107 [facility] Eosinophils/100 WBC (Bld) 1.8 % 0-[address] [facility] Glucose [Mass/Vol] 99 mg/dL 74-106 [facility] Neutrophils (Bld) [#/Vol] 4.2 10*3/uL 2.0-7.[address] [facility] Neutrophils/100 WBC (Bld) 52.5 % 47-[address] [facility] Potassium [Moles/Vol] 4.5 mmol/L 3.5-5.1 [facility] Sodium [Moles/Vol] 138 mmol/L 136-145 [facility] WBC (Bld) [#/Vol] 8.0 10*3/uL 4.4-11.0 [facility] Blood erythrocytes count (nu mber/volume)Ordered By: DIANNA BALLARD on 01-23-2023 RBC (Bld) [#/Vol] 3.77 10*6/uL 4.2-5.4 [facility] Blood hemoglobin measurement (mass/volume)Ordered By: DIANNA BALLARD on 01-23-2023 Hemoglobin (Bld) [Mass/Vol] 11.5 g/dL 12.0-15.[address] [facility] Blood lymphocytes/100 leukoc ytesOrdered By: DIANNA BALLARD on 01-23-2023 Lymphocytes/100 WBC (Bld) 37.2 % 19-[address] [facility] Blood monocytes/100 leukocyt esOrdered By: DIANNA BALLARD on 01-23-2023 Monocytes/100 WBC (Bld) 7.9 % 0-[address] [facility] Blood platelet mean volumeOr dered By: DIANNA BALLARD on 01-23-2023 Platelet mean volume (Bld) [Entitic vol] 10.1 fL 6.2-12.[address] [facility] Determination of erythrocyte mean corpuscular volume (MCV)Ordered By: DIANNA BALLARD on 01-23-2023 MCV (RBC) [Entitic vol] 95.5 fL 81-[address] [facility] Hematocrit Auto (Bld) [Volum e fraction]Ordered By: DIANNA BALLARD on 01-23-2023 Hematocrit (Bld) [Volume fraction] 36.0 % 37-[address] [facility] Laboratory - Chemistry and C hemistry - challengeOrdered By: DIANNA BALLARD on 01-23-2023 CO2 [Moles/Vol] 33.0 mmol/L 21.0-32.[address] [facility] Natriuretic peptide B (Bld) [Mass/Vol] 252.5 pg/mL 0-[address] [facility] Urea nitrogen/Creatinine [Mass ratio] 26.5 mg/mg 10-[address] [facility] Laboratory - Hematology and Cell countsOrdered By: DIANNA BALLARD on 01-23-2023 Erythrocyte distribution width (RBC) [Entitic vol] 45.1 fL 35.1-43.[address] [facility] Erythrocyte distribution width (RBC) [Ratio] 13.1 % 11.6-14.[address] [facility] Immature granulocytes/100 WBC (Bld) 0.300 % 0.0-0.[address] [facility] Comment on above: IG% - Immature Granu locytes (promyelocytes, myelocytes and metamyelocytes) > 1% indicates that a LEFT SHIFT is Present. MCH (RBC) [Entitic mass] 30.5 pg 27.0-32.[address] [facility] Nucleated RBC/100 WBC (Bld) [Ratio] 0 % 0-[address] [facility] MCHC Auto (RBC) [Mass/Vol]Or dered By: DIANNA BALLARD on 01-23-2023 MCHC (RBC) [Mass/Vol] 31.9 g/dL 32-36 [facility] No Panel InformationOrdered By: DIANNA BALLARD on 01-23-2023 D-Dimer Quantitative (PE/DVT) 0.36 FEU/ug/m 0.27-0.[address] [facility] Comment on above: NORMAL D-Dimer level (<0.50) indicates no DVT or PE. Estimated GFR (MDRD) Amer 78 mL/min >[address] [facility] Comment on above: GFR Calc Estimated GFR (MDRD) Non-Af Amer 64 mL/min >[address] [facility] Comment on above: Non- GFR Calc No Panel Informationon 01-23 Radiology Study observation (narrative) [facility] Platelets bldOrdered By: DIANNA BALLARD on 01-23-2023 Platelets (Bld) [#/Vol] 314 10*3/uL 150-[address] [facility] Serum or plasma calcium michelle urement (mass/volume)Ordered By: DIANNA BALLARD on 01-23-2023 Calcium [Mass/Vol] 9.5 mg/dL 8.5-10.1 [facility] Serum or plasma creatinine m easurement (mass/volume)Ordered By: DIANNA BALLARD on 01-23-2023 Creatinine [Mass/Vol] 0.91 mg/dL 0.55-1.02 [facility] Comment on above: The validity of the calculated GFR & GFRAA in patients over 70 years has not been determined. Clinical correlation is essential. Serum or plasma urea nitroge n measurement (mass/volume)Ordered By: DIANNA BALLARD on 01-23-2023 Urea nitrogen [Mass/Vol] 24 mg/dL 7-[address] [facility] Thin prep Papanicolaou smear with manual screeningOrdered By: DIANNA BALLARD on 01-23-2023 Thin prep Papanicolaou smear with manual screening 2 5-[address] [facility] XR Chest PA and Lateralon IMPRESSION: No acute radiographic abnormality. [employer] Certified Network Associate: BALJIT Transcribe Date/Time: Jan 23 2023 4:17P Dictated by : ACACIA TORRES MD This examination was interpreted and the report reviewed and electronically signed by: ACACIA TORRES MD on Jan 23 2023 4:18PM [facility] * * *Final Report* * * DATE OF EXAM: Jan 23 2023 4:11PM WOX 5291 - XR CHEST 2V FRONTAL/LAT / PROCEDURE REASON: multiple diagnoses * * * * Physician Interpretation * * * * EXAMINATION: CHEST RADIOGRAPH (2 VIEW FRONTAL & LATERAL) CLINICAL HISTORY: Shortness of breath Subacute cough MQ: XC2_6 EXAM DATE/TIME: 01/23/2023 4:11 PM COMPARISON: Chest x-ray 12/12/2022 RESULT: Lines, tubes, and devices: None. Lungs and pleura: No consolidation. No lung mass. No pleural effusion. No pneumothorax. Cardiomediastinal silhouette: Stable cardiomediastinal silhouette Bones and soft tissues: Degenerative disease of the thoracic spine DIVISION OF RADIOLOGY Provider, Enoc Robler[facility] - 01/23/2023 * * *Final Report* * * DATE OF EXAM: Jan 23 2023 4:11PM WOX 5291 - XR CHEST 2V FRONTAL/LAT / PROCEDURE REASON: multiple diagnoses * * * * Physician Interpretation * * * * EXAMINATION: CHEST RADIOGRAPH (2 VIEW FRONTAL & LATERAL) CLINICAL HISTORY: Shortness of breath Subacute cough MQ: XC2_6 EXAM DATE/TIME: 01/23/2023 4:11 PM COMPARISON: Chest x-ray 12/12/2022 RESULT: Lines, tubes, and devices: None. Lungs and pleura: No consolidation. No lung mass. No pleural effusion. No pneumothorax. Cardiomediastinal silhouette: Stable cardiomediastinal silhouette Bones and soft tissues: Degenerative disease of the thoracic spine IMPRESSION IMPRESSION: No acute radiographic abnormality. [employer] Certified Network Associate: PSCB Transcribe Date/Time: Jan 23 2023 4:17P Dictated by : ACACIA TORRES MD This examination was interpreted and the report reviewed and electronically signed by: ACACIA TORRES MD on Jan 23 2023 4:18PM [facility] XR Chest PA and LateralOrder ed By: Cc Provider on 01-23-2023 [facility] Absolute lymphocyte countOrd ered By: Josep Vasquez on 01-02-2023 Lymphocytes Auto (Unsp spec) [#/Vol] 2.13 10*3/uL 0.83-4.[address] [facility] Basophil percentageOrdered B y: Josep Vasquez on 01-02-2023 Basophils/100 WBC (Bld) 0.2 % 0-[address] [facility] Chloride [Moles/Vol] 105 mmol/L 98-107 [facility] Eosinophils/100 WBC (Bld) 2.1 % 0-[address] [facility] Glucose [Mass/Vol] 108 mg/dL 74-106 [facility] Comment on above: Fasting Glucose resu lt from 100 to 125 mg/dL suggests IMPAIRED HOMEOSTASIS per A.D.A. criteria. Neutrophils (Bld) [#/Vol] 5.4 10*3/uL 2.0-7.[address] [facility] Neutrophils/100 WBC (Bld) 64.1 % 47-[address] [facility] Potassium [Moles/Vol] 4.7 mmol/L 3.5-5.1 [facility] Sodium [Moles/Vol] 140 mmol/L 136-145 [facility] WBC (Bld) [#/Vol] 8.5 10*3/uL 4.4-11.0 [facility] Blood erythrocytes count (nu mber/volume)Ordered By: Josep Vasquez on 01-02-2023 RBC (Bld) [#/Vol] 3.42 10*6/uL 4.2-5.4 [facility] Blood hemoglobin measurement (mass/volume)Ordered By: Josep Vasquez on 01-02-2023 Hemoglobin (Bld) [Mass/Vol] 10.1 g/dL 12.0-15.[address] [facility] Blood lymphocytes/100 leukoc ytesOrdered By: Josep Vasquez on 01-02-2023 Lymphocytes/100 WBC (Bld) 25.2 % 19-[address] [facility] Blood monocytes/100 leukocyt esOrdered By: Josep Vasquez on 01-02-2023 Monocytes/100 WBC (Bld) 8.0 % 0-[address] [facility] Blood platelet mean volumeOr dered By: Josep Vasquez on 01-02-2023 Platelet mean volume (Bld) [Entitic vol] 9.7 fL 6.2-12.[address] [facility] Determination of erythrocyte mean corpuscular volume (MCV)Ordered By: Josep Vasquez on 01-02-2023 MCV (RBC) [Entitic vol] 95.3 fL 81-[address] [facility] Hematocrit Auto (Bld) [Volum e fraction]Ordered By: Josep Vasquez on 01-02-2023 Hematocrit (Bld) [Volume fraction] 32.6 % 37-[address] [facility] Laboratory - Chemistry and C hemistry - challengeOrdered By: Josep Vasquez on 01-02-2023 CO2 [Moles/Vol] 33.0 mmol/L 21.0-32.[address] [facility] Urea nitrogen/Creatinine [Mass ratio] 32.1 mg/mg 10-[address] [facility] Laboratory - Hematology and Cell countsOrdered By: Josep Vasquez on 01-02-2023 Erythrocyte distribution width (RBC) [Entitic vol] 44.7 fL 35.1-43.[address] [facility] Erythrocyte distribution width (RBC) [Ratio] 12.8 % 11.6-14.[address] [facility] Immature granulocytes/100 WBC (Bld) 0.400 % 0.0-0.[address] [facility] Comment on above: IG% - Immature Granu locytes (promyelocytes, myelocytes and metamyelocytes) > 1% indicates that a LEFT SHIFT is Present. MCH (RBC) [Entitic mass] 29.5 pg 27.0-32.[address] [facility] Nucleated RBC/100 WBC (Bld) [Ratio] 0 % 0-[address] [facility] MCHC Auto (RBC) [Mass/Vol]Or dered By: Josep Vasquez on 01-02-2023 MCHC (RBC) [Mass/Vol] 31.0 g/dL 32-36 [facility] No Panel InformationOrdered By: Josep Vasquez on 01-02-2023 Estimated Creatinine Clearance Calc 28.00 ml/min [facility] Estimated GFR (MDRD) Amer 51 mL/min >[address] [facility] Comment on above: GFR Calc Estimated GFR (MDRD) Non-Af Amer 42 mL/min >[address] [facility] Comment on above: Non- GFR Calc Platelets bldOrdered By: Eliazar Vasquez on 01-02-2023 Platelets (Bld) [#/Vol] 245 10*3/uL 150-[address] [facility] Serum or plasma calcium michelle urement (mass/volume)Ordered By: Josep Vasquez on 01-02-2023 Calcium [Mass/Vol] 8.6 mg/dL 8.5-10.1 [facility] Serum or plasma creatinine m easurement (mass/volume)Ordered By: Josep Vasquez on 01-02-2023 Creatinine [Mass/Vol] 1.31 mg/dL 0.55-1.02 [facility] Comment on above: The validity of the calculated GFR & GFRAA in patients over 70 years has not been determined. Clinical correlation is essential. Serum or plasma urea nitroge n measurement (mass/volume)Ordered By: Josep Vasquez on 01-02-2023 Urea nitrogen [Mass/Vol] 42 mg/dL 7-[address] [facility] Thin prep Papanicolaou smear with manual screeningOrdered By: Josep Vasquez on 01-02-2023 Thin prep Papanicolaou smear with manual screening 2 5-[address] [facility] Basophil percentageOrdered B y: Josep Vasquez on 01-01-2023 Basophil percentage 5.3 mg/dL 2.5-4.9 [facility] Laboratory - Chemistry and C hemistry - challengeOrdered By: Josep Vasquez on 01-01-2023 Magnesium [Mass/Vol] 2.6 mg/dL 1.6-2.6 [facility] Absolute lymphocyte countOrd ered By: Sohan Shelton on 12-31-2022 Lymphocytes Auto (Unsp spec) [#/Vol] 3.39 10*3/uL 0.83-4.[address] [facility] Assessment of wrist artery p atency prior to arterial punctureOrdered By: Sohan Shelton on 12-31-2022 Arterial patency Wrist artery --pre arterial puncture Positive [facility] Base excessOrdered By: Florencio Shelton on 12-31-2022 Base excess Calc (BldV) [Moles/Vol] 1 mmol/L -2-[address] [facility] Basophil percentageOrdered B y: Stephanie Scales on 12-31-2022 Bilirubin [Mass/Vol] 0.40 mg/dL 0.20-1.00 [facility] Comment on above: For patients on eltr ombopag therapy, use of [employer] TBIL is not recommended. Protein [Mass/Vol] 6.8 g/dL 6.4-8.2 [facility] Basophil percentageOrdered B y: Sohan Shelton on 12-31-2022 Basophil percentage 26.2 mmol/L 22-26 [facility] Basophils/100 WBC (Bld) 96 % 95-[address] [facility] Basophils/100 WBC (Bld) 0.3 % 0-[address] [facility] Chloride [Moles/Vol] 107 mmol/L 98-107 [facility] Eosinophils/100 WBC (Bld) 0.7 % 0-[address] [facility] Glucose [Mass/Vol] 148 mg/dL 74-106 [facility] Comment on above: Fasting Glucose resu lt greater than or equal to 126 mg/dL suggests DIABETES MELLITUS per A.D.A. criteria. Neutrophils (Bld) [#/Vol] 11.7 10*3/uL 2.0-7.[address] [facility] Neutrophils/100 WBC (Bld) 71.3 % 47-[address] [facility] Potassium [Moles/Vol] 4.5 mmol/L 3.5-5.1 [facility] Sodium [Moles/Vol] 142 mmol/L 136-145 [facility] WBC (Bld) [#/Vol] 16.3 10*3/uL 4.4-11.0 [facility] Blood erythrocytes count (nu mber/volume)Ordered By: Sohan Shelton on 12-31-2022 RBC (Bld) [#/Vol] 4.10 10*6/uL 4.2-5.4 [facility] Blood hemoglobin measurement (mass/volume)Ordered By: Sohan Shelton on 12-31-2022 Hemoglobin (Bld) [Mass/Vol] 12.4 g/dL 12.0-15.[address] [facility] Blood lymphocytes/100 leukoc ytesOrdered By: Sohan Shelton on 12-31-2022 Lymphocytes/100 WBC (Bld) 20.8 % 19-[address] [facility] Blood monocytes/100 leukocyt esOrdered By: Sohan Shelton on 12-31-2022 Monocytes/100 WBC (Bld) 6.4 % 0-[address] [facility] Blood platelet mean volumeOr dered By: Sohan Shelton on 12-31-2022 Platelet mean volume (Bld) [Entitic vol] 10.2 fL 6.2-12.[address] [facility] CO2 (BldA) [Partial pressure ]Ordered By: Sohan Shelton on 12-31-2022 CO2 (Bld) [Partial pressure] 44.6 mm[Hg] 35-[address] [facility] Determination of erythrocyte mean corpuscular volume (MCV)Ordered By: Sohan Shelton on 12-31-2022 MCV (RBC) [Entitic vol] 93.4 fL 81-[address] [facility] Hematocrit Auto (Bld) [Volum e fraction]Ordered By: Sohan Shelton on 12-31-2022 Hematocrit (Bld) [Volume fraction] 38.3 % 37-[address] [facility] Laboratory - Chemistry and C hemistry - challengeOrdered By: Stephanie Scales on 12-31-2022 ALP [Catalytic activity/Vol] 100 U/L 45-[address] [facility] ALT [Catalytic activity/Vol] 114 U/L 13-[address] [facility] Globulin (S) [Mass/Vol] 3.2 g/dL 2.2-4.[address] [facility] Laboratory - Chemistry and C hemistry - challengeOrdered By: Sohan Shelton on 12-31-2022 CO2 [Moles/Vol] 29.0 mmol/L 21.0-32.[address] [facility] Natriuretic peptide B (Bld) [Mass/Vol] 394.7 pg/mL 0-[address] [facility] Urea nitrogen/Creatinine [Mass ratio] 27.9 mg/mg 10-[address] [facility] Laboratory - Hematology and Cell countsOrdered By: Sohan Shelton on 12-31-2022 Erythrocyte distribution width (RBC) [Entitic vol] 43.9 fL 35.1-43.[address] [facility] Erythrocyte distribution width (RBC) [Ratio] 12.9 % 11.6-14.[address] [facility] Immature granulocytes/100 WBC (Bld) 0.500 % 0.0-0.[address] [facility] Comment on above: IG% - Immature Granu locytes (promyelocytes, myelocytes and metamyelocytes) > 1% indicates that a LEFT SHIFT is Present. MCH (RBC) [Entitic mass] 30.2 pg 27.0-32.[address] [facility] Nucleated RBC/100 WBC (Bld) [Ratio] 0 % 0-[address] [facility] MCHC Auto (RBC) [Mass/Vol]Or dered By: Sohan Shelton on 12-31-2022 MCHC (RBC) [Mass/Vol] 32.4 g/dL 32-36 [facility] No Panel InformationOrdered By: Stephanie Scales on 12-31-2022 Troponin I High Sensitivity 57 pg/mL 3.0-54.[address] [facility] Comment on above: Please Note: New Debra t Units and Gender Specific Reference Ranges. For more information see Policy Stat Procedure [place] High Sensitivity Troponin (TNIH) and attachments. Thyroid Stimulating Hormone (TSH) 2.77 uIU/mL 0.358-3.[address] [facility] Streptococcus pneumoniae Antigen (M [facility] Streptococcus pneumoniae Antigen (M [facility] No Panel InformationOrdered By: Sohan Shelton on 12-31-2022 Bedside Blood Gas PEEP 8 [facility] Blood Gas Clinical Comments BIPAP 23/12 R12 45% [facility] Blood Gas Oxygen Percent [address] [facility] Blood Gas Respiration Rate [address] [facility] Blood Gas Sample Site R Brach [facility] Blood Gas Specimen Type ART [facility] Blood Gas Total CO2 28 mmol/L [facility] Oxygen Delivery Device BiPAP [facility] Estimated Creatinine Clearance Calc 28.43 ml/min [facility] Estimated GFR (MDRD) Amer 52 mL/min >[address] [facility] Comment on above: GFR Calc Estimated GFR (MDRD) Non-Af Amer 43 mL/min >[address] [facility] Comment on above: Non- GFR Calc Troponin I High Sensitivity 6 pg/mL 3.0-54.[address] [facility] Comment on above: Please Note: New Debra t Units and Gender Specific Reference Ranges. For more information see Policy Stat Procedure [place] High Sensitivity Troponin (TNIH) and attachments. Oxygen (BldA) [Partial press ure]Ordered By: Sohan Shelton on 12-31-2022 Oxygen (Bld) [Partial pressure] 84 mmHG 75-[address] [facility] Platelets bldOrdered By: Laura Shelton on 12-31-2022 Platelets (Bld) [#/Vol] 335 10*3/uL 150-[address] [facility] Respiratory pathogens detect ion panel by molecular detection methodOrdered By: Stephanie Scales on 12-31-2022 Respiratory pathogens DNA and RNA panel NANI+probe (Resp) [facility] Respiratory pathogens DNA and RNA panel NANI+probe (Resp) [facility] Serum or plasma albumin michelle urement (mass/volume)Ordered By: Stephanie Scales on 12-31-2022 Albumin [Mass/Vol] 3.6 g/dL 3.2-5.0 [facility] Serum or plasma albumin/glob ulin mass ratioOrdered By: Stephanie Scales on 12-31-2022 Albumin/Globulin [Mass ratio] 1.1 {ratio} 0.9-2.[address] [facility] Serum or plasma calcium michelle urement (mass/volume)Ordered By: Sohan Shelton on 12-31-2022 Calcium [Mass/Vol] 9.5 mg/dL 8.5-10.1 [facility] Serum or plasma creatinine m easurement (mass/volume)Ordered By: Sohan Shelton on 12-31-2022 Creatinine [Mass/Vol] 1.29 mg/dL 0.55-1.02 [facility] Comment on above: The validity of the calculated GFR & GFRAA in patients over 70 years has not been determined. Clinical correlation is essential. Serum or plasma urea nitroge n measurement (mass/volume)Ordered By: Sohan Shelton on 12-31-2022 Urea nitrogen [Mass/Vol] 36 mg/dL 7-[address] [facility] Thin prep Papanicolaou smear with manual screeningOrdered By: Stephanie Scales on 12-31-2022 Thin prep Papanicolaou smear with manual screening 49 U/L 15-[address] [facility] Thin prep Papanicolaou smear with manual screeningOrdered By: Sohan Shelton on 12-31-2022 Thin prep Papanicolaou smear with manual screening 6 5-[address] [facility] Urine Legionella pneumophila antigen detectionOrdered By: Stephanie Scales on 12-31-2022 L. pneumophila Ag Ql (U) [facility] L. pneumophila Ag Ql (U) [facility] pH measurementOrdered By: Rina Shelton on 12-31-2022 pH (Unsp spec) 7.38 [pH] 7.35-7.[address] [facility] Basic metabolic 2000 panelon 12-26-2022 Anion gap [Moles/Vol] 11 mmol/L 9 - 18 mmol/L [facility] Calcium [Mass/Vol] 9.6 mg/dL 8.5 - 10. 2 mg/dL [facility] Chloride [Moles/Vol] 102 mmol/L 97 - 10 5 mmol/L [facility] CO2 [Moles/Vol] 26 mmol/L 22 - 30 mmol/L [facility] Creatinine [Mass/Vol] 1.03 mg/dL High 0.58 - 0.96 mg/dL [facility] Estimated Glomerular Filtration Rate 57 mL/min/1.73m Low >=60 mL/min/1.7 3m [facility] Glucose [Mass/Vol] 93 mg/dL 74 - 99 mg/dL [facility] Potassium [Moles/Vol] 4.1 mmol/L 3.7 - 5.1 mmol/L [facility] Sodium [Moles/Vol] 139 mmol/L 136 - 144 mmol/L [facility] Urea nitrogen [Mass/Vol] 28 mg/dL High 7 - 21 mg/dL [facility] CBC panel Auto (Bld)on 12-26 Erythrocyte distribution width (RBC) [Ratio] 12.7 % 11.5 - 15.0 % [facility] Hematocrit (Bld) [Volume fraction] 36.4 % 36.0 - 46.0 % [facility] Hemoglobin (Bld) [Mass/Vol] 11.8 g/dL 11.5 - 15.5 g/dL [facility] MCH (RBC) [Entitic mass] 29.4 pg 26.0 - 34.0 pg [facility] MCHC (RBC) [Mass/Vol] 32.4 g/dL 30.5 - 36.0 g/dL [facility] MCV (RBC) [Entitic vol] 90.5 fL 80.0 - 100.0 fL [facility] Nucleated RBC (Bld) [#/Vol] <0.01 k/uL [facility] Platelet mean volume (Bld) [Entitic vol] 9.9 fL 9.0 - 12.7 fL [facility] Platelets (Bld) [#/Vol] 296 10*3/uL 150 - 400 k/uL [facility] RBC (Bld) [#/Vol] 4.02 10*6/uL 3.90 - 5.20 m/uL [facility] WBC (Bld) [#/Vol] 8.73 10*3/uL 3.70 - 11.00 k/uL [facility] No Panel Informationon 12-26 [facility] 2019 CORONAVIRUSon 3 SARS-CoV-2 (COVID-19) RNA NANI+probe Ql (Resp) Not detected See comment [facility] Comprehensive metabolic 2000 panelon 12-13-2022 Albumin [Mass/Vol] 4.2 g/dL 3.9 - 4.9 g/dL [facility] ALP [Catalytic activity/Vol] 83 U/L 34 - 123 U/L [facility] ALT [Catalytic activity/Vol] 50 U/L High 7 - 38 U/L [facility] Anion gap [Moles/Vol] 12 mmol/L 9 - 18 mmol/L [facility] AST [Catalytic activity/Vol] 37 U/L High 13 - 35 U/L [facility] Bilirubin [Mass/Vol] 0.4 mg/dL 0.2 - 1 .3 mg/dL [facility] Calcium [Mass/Vol] 9.6 mg/dL 8.5 - 10. 2 mg/dL [facility] Chloride [Moles/Vol] 103 mmol/L 97 - 10 5 mmol/L [facility] CO2 [Moles/Vol] 28 mmol/L 22 - 30 mmol/L [facility] Creatinine [Mass/Vol] 1.07 mg/dL High 0.58 - 0.96 mg/dL [facility] Estimated Glomerular Filtration Rate 54 mL/min/1.73m Low >=60 mL/min/1.7 3m [facility] Glucose [Mass/Vol] 87 mg/dL 74 - 99 mg/dL [facility] Potassium [Moles/Vol] 4.7 mmol/L 3.7 - 5.1 mmol/L [facility] Protein [Mass/Vol] 6.6 g/dL 6.3 - 8.0 g/dL [facility] Sodium [Moles/Vol] 143 mmol/L 136 - 144 mmol/L [facility] Urea nitrogen [Mass/Vol] 32 mg/dL High 7 - 21 mg/dL [facility] NT PRO BNPon 12-13-2022 Natriuretic peptide.B prohormone N-Terminal [Mass/Vol] 516 pg/mL High <450 pg/mL [facility] XR Chest PA and Lateralon IMPRESSION: No acute radiographic abnormality. Mild cardiomegaly [employer] Certified Network Associate: BALJIT Transcribe Date/Time: Dec 13 2022 7:24A Dictated by : JEFFREY RICK MD This examination was interpreted and the report reviewed and electronically signed by: JEFFREY RICK MD on Dec 13 2022 7:25AM [facility] * * *Final Report* * * DATE OF EXAM: Dec 12 2022 1:00PM WOX [id number] - XR CHEST 2V FRONTAL/LAT / PROCEDURE REASON: multiple diagnoses * * * * Physician Interpretation * * * * EXAMINATION: CHEST RADIOGRAPH (2 VIEW FRONTAL & LATERAL) CLINICAL HISTORY: Fever, unspecified fever cause Cough, unspecified type MQ: XC2_6 EXAM DATE/TIME: 12/12/2022 1:00 PM COMPARISON: 05/15/2022 RESULT: Lines, tubes, and devices: None. Lungs and pleura: No consolidation. No lung mass. No pleural effusion. No pneumothorax. Cardiomediastinal silhouette: Mildly enlarged cardiomediastinal silhouette. Bones and soft tissues: Unremarkable. DIVISION OF RADIOLOGY [facility] * * *Final Report* * * DATE OF EXAM: Dec 12 2022 1:00PM WOX 5291 - XR CHEST 2V FRONTAL/LAT / PROCEDURE REASON: multiple diagnoses * * * * Physician Interpretation * * * * EXAMINATION: CHEST RADIOGRAPH (2 VIEW FRONTAL & LATERAL) CLINICAL HISTORY: Fever, unspecified fever cause Cough, unspecified type MQ: XC2_6 EXAM DATE/TIME: 12/12/2022 1:00 PM COMPARISON: 05/15/2022 RESULT: Lines, tubes, and devices: None. Lungs and pleura: No consolidation. No lung mass. No pleural effusion. No pneumothorax. Cardiomediastinal silhouette: Mildly enlarged cardiomediastinal silhouette. Bones and soft tissues: Unremarkable. IMPRESSION IMPRESSION: No acute radiographic abnormality. Mild cardiomegaly [employer] Certified Network Associate: [facility] Transcribe Date/Time: Dec 13 2022 7:24A Dictated by : JEFFREY RICK MD This examination was interpreted and the report reviewed and electronically signed by: JEFFREY RICK MD on Dec 13 2022 7:25AM EST [facility] XR Chest PA and LateralOrder ed By: [facility]cf Provider on 12-13-2022 [facility] CBC W Auto Differential pane l (Bld)on 12-12-2022 Basophils (Bld) [#/Vol] <0.11 k/uL [facility] Basophils/100 WBC (Bld) 0.2 % [facility] Differential cell count method Nom (Bld) Auto [facility] Eosinophils (Bld) [#/Vol] 0.14 10*3/uL <0.46 k/uL [facility] Eosinophils/100 WBC (Bld) 1.7 % [facility] Erythrocyte distribution width (RBC) [Ratio] 13.1 % 11.5 - 15.0 % [facility] Hematocrit (Bld) [Volume fraction] 34.8 % Low 36.0 - 46.0 % [facility] Hemoglobin (Bld) [Mass/Vol] 11.1 g/dL Low 11.5 - 15.5 g/dL [facility] Immature granulocytes (Bld) [#/Vol] <0.10 k/uL [facility] Immature granulocytes/100 WBC (Bld) 0.2 % [facility] Lymphocytes (Bld) [#/Vol] 2.82 10*3/uL 1.00 - 4.00 k/uL [facility] Lymphocytes/100 WBC (Bld) 35.1 % [facility] MCH (RBC) [Entitic mass] 29.4 pg 26.0 - 34.0 pg [facility] MCHC (RBC) [Mass/Vol] 31.9 g/dL 30.5 - 36.0 g/dL [facility] MCV (RBC) [Entitic vol] 92.1 fL 80.0 - 100.0 fL [facility] Monocytes (Bld) [#/Vol] 0.81 10*3/uL <0.87 k/uL [facility] Monocytes/100 WBC (Bld) 10.1 % [facility] Neutrophils (Bld) [#/Vol] 4.22 10*3/uL 1.45 - 7.50 k/uL [facility] Neutrophils/100 WBC (Bld) 52.7 % [facility] Nucleated RBC (Bld) [#/Vol] 0.02 10*3/uL High <0.01 k/uL [facility] Nucleated RBC/100 WBC (Bld) [Ratio] 0.2 /100 WBC [facility] Platelet mean volume (Bld) [Entitic vol] 10.2 fL 9.0 - 12.7 fL [facility] Platelets (Bld) [#/Vol] 303 10*3/uL 150 - 400 k/uL [facility] RBC (Bld) [#/Vol] 3.78 10*6/uL Low 3.90 - 5.20 m/uL [facility] WBC (Bld) [#/Vol] 8.03 10*3/uL 3.70 - 11.00 k/uL [facility] STREP A MOLECULAR (POC)on Procedural Control Valid [facility] Strep A (POCT) Negative Negative [facility] XR CHEST 2V FRONTAL/LATon [facility] XR Chest PA and Lateralon Radiology Study observation (narrative) [facility] No Panel Informationon 09-28 IMPRESSION: Disc space narrowing in the mid and lower thoracic spine with increased kyphosis otherwise no acute fracture or malalignment Multilevel degenerative disc disease and facet arthropathy and mild scoliosis of the lumbar spine [employer] Certified Network Associate: BALJIT Transcribe Date/Time: Sep 28 2022 8:09A Dictated by : SHARMAINE COBURN MD This examination was interpreted and the report reviewed and electronically signed by: SHARMAINE COBURN MD on Sep 28 2022 8:10AM EST DIVISION OF RADIOLOGY [facility] XR Lumbar spine 3 Viewson * * *Final Report* * * DATE OF EXAM: Sep 26 2022 11:08AM WOX 5228 - XR LUMBAR 3V AP/LAT/L5-S1 / PROCEDURE REASON: multiple diagnoses * * * * Physician Interpretation * * * * CLINICAL: Back pain TECHNIQUE:3 views of the thoracic spine RESULT: THORACIC SPINE FINDINGS: No evidence of acute fracture or subluxation is seen. The vertebral body height and discs spaces demonstrates mild disc space in the mid and lower thoracic spine. There is increased kyphosis of the thoracic spine. Clinical: Back pain Technique: AP , lateral and coned down views of the lumbar spine RESULT: No evidence of acute fracture or subluxation is seen. 5 lumbar type vertebral bodies are present. L4-5 is at the iliac crest. There is no evidence for spondylolysis or spondylolisthesis. The vertebral body height and discs spaces demonstrates multilevel degenerative disc disease with disc space narrowing throughout the lumbar spine most pronounced at L4-L5 and L5-S1. Facet arthropathy is also seen in the posterior elements of the lower lumbar spine.. The alignment demonstrates mild S-shaped scoliosis of the lumbar spine.. DIVISION OF RADIOLOGY Provider, [facility] - 09/28/2022 * * *Final Report* * * DATE OF EXAM: Sep 26 2022 11:08AM WOX 5228 - XR LUMBAR 3V AP/LAT/L5-S1 / PROCEDURE REASON: multiple diagnoses * * * * Physician Interpretation * * * * CLINICAL: Back pain TECHNIQUE:3 views of the thoracic spine RESULT: THORACIC SPINE FINDINGS: No evidence of acute fracture or subluxation is seen. The vertebral body height and discs spaces demonstrates mild disc space in the mid and lower thoracic spine. There is increased kyphosis of the thoracic spine. Clinical: Back pain Technique: AP , lateral and coned down views of the lumbar spine RESULT: No evidence of acute fracture or subluxation is seen. 5 lumbar type vertebral bodies are present. L4-5 is at the iliac crest. There is no evidence for spondylolysis or spondylolisthesis. The vertebral body height and discs spaces demonstrates multilevel degenerative disc disease with disc space narrowing throughout the lumbar spine most pronounced at L4-L5 and L5-S1. Facet arthropathy is also seen in the posterior elements of the lower lumbar spine.. The alignment demonstrates mild S-shaped scoliosis of the lumbar spine.. IMPRESSION IMPRESSION: Disc space narrowing in the mid and lower thoracic spine with increased kyphosis otherwise no acute fracture or malalignment Multilevel degenerative disc disease and facet arthropathy and mild scoliosis of the lumbar spine [employer] Certified Network Associate: BALJIT Transcribe Date/Time: Sep 28 2022 8:09A Dictated by : SHARMAINE COBURN MD This examination was interpreted and the report reviewed and electronically signed by: SHARMAINE COBURN MD on Sep 28 2022 8:10AM [facility] XR Ribs - left 2 Viewson IMPRESSION: No acute displaced rib fracture or acute cardiopulmonary process. [employer] Certified Network Associate: BALJIT Transcribe Date/Time: Sep 28 2022 10:39P Dictated by : POWER PRETTY MD This examination was interpreted and the report reviewed and electronically signed by: POWER PRETTY MD on Sep 28 2022 10:41PM [facility] * * *Final Report* * * DATE OF EXAM: Sep 26 2022 11:08AM WOX [id number] - XR RIBS 2V AP/OBL LT / PROCEDURE REASON: multiple diagnoses * * * * Physician Interpretation * * * * EXAMINATION / TECHNIQUE: XR RIBS 2V AP/OBL LT HISTORY: fell 10 days ago pain is only left lower lumbar and left posterior lower rib area marked by a bb no thoracic pain Fall, initial encounter Rib tenderness COMPARISON: 05/15/2022. RESULT: Lines, tubes, and devices: None. Lungs and pleura: There is no focal consolidation, pleural effusion, or pneumothorax. Cardiomediastinal silhouette: Within normal limits. Bones and soft tissues: No acute osseous abnormality is identified. The imaged upper abdomen is within normal limits. DIVISION OF RADIOLOGY Provider, [facility] - 09/28/2022 * * *Final Report* * * DATE OF EXAM: Sep 26 2022 11:08AM WOX 5582 - XR RIBS 2V AP/OBL LT / PROCEDURE REASON: multiple diagnoses * * * * Physician Interpretation * * * * EXAMINATION / TECHNIQUE: XR RIBS 2V AP/OBL LT HISTORY: fell 10 days ago pain is only left lower lumbar and left posterior lower rib area marked by a bb no thoracic pain Fall, initial encounter Rib tenderness COMPARISON: 05/15/2022. RESULT: Lines, tubes, and devices: None. Lungs and pleura: There is no focal consolidation, pleural effusion, or pneumothorax. Cardiomediastinal silhouette: Within normal limits. Bones and soft tissues: No acute osseous abnormality is identified. The imaged upper abdomen is within normal limits. IMPRESSION IMPRESSION: No acute displaced rib fracture or acute cardiopulmonary process. [employer] Certified Network Associate: BALJIT Transcribe Date/Time: Sep 28 2022 10:39P Dictated by : POWER PRETTY MD This examination was interpreted and the report reviewed and electronically signed by: POWER PRETTY MD on Sep 28 2022 10:41PM EST [facility] XR Ribs - left 2 ViewsOrdere d By: [facility]cf Provider on 09-28-2022 [facility] XR Thoracic spine AP and Lat eral and [place] 09-28-2022 * * *Final Report* * * DATE OF EXAM: Sep 26 2022 11:08AM WOX 5261 - XR THORACIC 3V AP/LAT/SWIMMERS / PROCEDURE REASON: multiple diagnoses * * * * Physician Interpretation * * * * CLINICAL: Back pain TECHNIQUE:3 views of the thoracic spine RESULT: THORACIC SPINE FINDINGS: No evidence of acute fracture or subluxation is seen. The vertebral body height and discs spaces demonstrates mild disc space in the mid and lower thoracic spine. There is increased kyphosis of the thoracic spine. Clinical: Back pain Technique: AP , lateral and coned down views of the lumbar spine RESULT: No evidence of acute fracture or subluxation is seen. 5 lumbar type vertebral bodies are present. L4-5 is at the iliac crest. There is no evidence for spondylolysis or spondylolisthesis. The vertebral body height and discs spaces demonstrates multilevel degenerative disc disease with disc space narrowing throughout the lumbar spine most pronounced at L4-L5 and L5-S1. Facet arthropathy is also seen in the posterior elements of the lower lumbar spine.. The alignment demonstrates mild S-shaped scoliosis of the lumbar spine.. DIVISION OF RADIOLOGY Provider, [facility] - 09/28/2022 * * *Final Report* * * DATE OF EXAM: Sep 26 2022 11:08AM WOX 5261 - XR THORACIC 3V AP/LAT/SWIMMERS / PROCEDURE REASON: multiple diagnoses * * * * Physician Interpretation * * * * CLINICAL: Back pain TECHNIQUE:3 views of the thoracic spine RESULT: THORACIC SPINE FINDINGS: No evidence of acute fracture or subluxation is seen. The vertebral body height and discs spaces demonstrates mild disc space in the mid and lower thoracic spine. There is increased kyphosis of the thoracic spine. Clinical: Back pain Technique: AP , lateral and coned down views of the lumbar spine RESULT: No evidence of acute fracture or subluxation is seen. 5 lumbar type vertebral bodies are present. L4-5 is at the iliac crest. There is no evidence for spondylolysis or spondylolisthesis. The vertebral body height and discs spaces demonstrates multilevel degenerative disc disease with disc space narrowing throughout the lumbar spine most pronounced at L4-L5 and L5-S1. Facet arthropathy is also seen in the posterior elements of the lower lumbar spine.. The alignment demonstrates mild S-shaped scoliosis of the lumbar spine.. IMPRESSION IMPRESSION: Disc space narrowing in the mid and lower thoracic spine with increased kyphosis otherwise no acute fracture or malalignment Multilevel degenerative disc disease and facet arthropathy and mild scoliosis of the lumbar spine [employer] Certified Network Associate: [facility] Transcribe Date/Time: Sep 28 2022 8:09A Dictated by : SHARMAINE COBURN MD This examination was interpreted and the report reviewed and electronically signed by: SHARMAINE COBURN MD on Sep 28 2022 8:10AM EST [facility] No Panel Informationon 09-26 Radiology Study observation (narrative) [facility] Basophil percentageOrdered B y: Caterina Bro on 08-27-2022 Chloride [Moles/Vol] 105 mmol/L 98-107 [facility] Glucose [Mass/Vol] 106 mg/dL 74-106 [facility] Comment on above: Fasting Glucose resu lt from 100 to 125 mg/dL suggests IMPAIRED HOMEOSTASIS per A.D.A. criteria. Potassium [Moles/Vol] 4.0 mmol/L 3.5-5.1 [facility] Sodium [Moles/Vol] 139 mmol/L 136-145 [facility] Laboratory - Chemistry and C hemistry - challengeOrdered By: Caterina Bro on 08-27-2022 CO2 [Moles/Vol] 31.0 mmol/L 21.0-32.[address] [facility] Natriuretic peptide B (Bld) [Mass/Vol] 545.4 pg/mL 0-[address] [facility] Urea nitrogen/Creatinine [Mass ratio] 33.8 mg/mg 10-[address] [facility] No Panel InformationOrdered By: Caterina Bro on 08-27-2022 Estimated GFR (MDRD) Amer 94 mL/min >[address] [facility] Comment on above: GFR Calc Estimated GFR (MDRD) Non-Af Amer 78 mL/min >[address] [facility] Comment on above: Non- GFR Calc Serum or plasma calcium michelle urement (mass/volume)Ordered By: Caterina Bro on 08-27-2022 Calcium [Mass/Vol] 10.1 mg/dL 8.5-10.1 [facility] Serum or plasma creatinine m easurement (mass/volume)Ordered By: Caterina Bro on 08-27-2022 Creatinine [Mass/Vol] 0.77 mg/dL 0.55-1.02 [facility] Comment on above: The validity of the calculated GFR & GFRAA in patients over 70 years has not been determined. Clinical correlation is essential. Serum or plasma urea nitroge n measurement (mass/volume)Ordered By: Caterina Bro on 08-27-2022 Urea nitrogen [Mass/Vol] 26 mg/dL -[address] [facility] Thin prep Papanicolaou smear with manual screeningOrdered By: Caterina Bro on 08-27-2022 Thin prep Papanicolaou smear with manual screening 3 5-[address] [facility] Basophil percentageOrdered B y: Dr. Hall on 08-09-2022 Chloride [Moles/Vol] 110 mmol/L 98-107 [facility] Cholesterol [Mass/Vol] 132 mg/dL <200 [facility] Comment on above: <200 mg/dL Desirable 200-240 mg/dL Borderline >240 mg/dL High Risk Glucose [Mass/Vol] 84 mg/dL 74-106 [facility] Potassium [Moles/Vol] 3.8 mmol/L 3.5-5.1 [facility] Sodium [Moles/Vol] 143 mmol/L 136-145 [facility] Triglyceride [Mass/Vol] 54 mg/dL <[address] [facility] Comment on above: The drugs N-Acetylcy steine and Metamizole may falsely depress this assay.Serum Triglycerides Reference Interval Normal <150 mg/dL Borderline high 150 - 199 mg/dL High 200 - 499 mg/dL Very High > or = 500 mg/dL Laboratory - Chemistry and C hemistry - challengeOrdered By: Dr. Hall on 08-09-2022 CO2 [Moles/Vol] 28.0 mmol/L 21.0-32.[address] [facility] Urea nitrogen/Creatinine [Mass ratio] 37.0 mg/mg 10-[address] [facility] No Panel InformationOrdered By: Dr. Hall on 08-09-2022 Estimated Creatinine Clearance Calc 39.87 ml/min [facility] Estimated GFR (MDRD) Amer 77 mL/min >[address] [facility] Comment on above: GFR Calc Estimated GFR (MDRD) Non-Af Amer 63 mL/min >[address] [facility] Comment on above: Non- GFR Calc Serum or plasma calcium michelle urement (mass/volume)Ordered By: Dr. Hall on 08-09-2022 Calcium [Mass/Vol] 8.7 mg/dL 8.5-10.1 [facility] Serum or plasma cholesterol in HDL measurement (mass/volume)Ordered By: Dr. Hall on 08-09-2022 Cholesterol in HDL [Mass/Vol] 50 mg/dL >[address] [facility] Comment on above: The drugs N-Acetylcy steine and Metamizole may falsely depress this assay. Reference Range HDL <40 mg/dL Low HDL Cholesterol HDL >or= 60 mg/dL High HDL Cholesterol Serum or plasma cholesterol in VLDL measurement (mass/volume)Ordered By: Dr. Hall on 08-09-2022 Cholesterol in VLDL [Mass/Vol] 11 mg/dL 5-[address] [facility] Serum or plasma creatinine m easurement (mass/volume)Ordered By: Dr. Hall on 08-09-2022 Creatinine [Mass/Vol] 0.92 mg/dL 0.55-1.02 [facility] Comment on above: The validity of the calculated GFR & GFRAA in patients over 70 years has not been determined. Clinical correlation is essential. Serum or plasma low density lipoprotein (LDL) cholesterol measurement (mass/volume)Ordered By: Dr. Hall on 08-09-2022 Cholesterol in LDL [Mass/Vol] 71 mg/dL 0-[address] [facility] Serum or plasma urea nitroge n measurement (mass/volume)Ordered By: Dr. Hall on 08-09-2022 Urea nitrogen [Mass/Vol] 34 mg/dL 7-[address] [facility] Thin prep Papanicolaou smear with manual screeningOrdered By: Dr. aHll on 08-09-2022 Thin prep Papanicolaou smear with manual screening 5 5-[address] [facility] Absolute lymphocyte countOrd ered By: Dr. Dempsey on 08-08-2022 Lymphocytes Auto (Unsp spec) [#/Vol] 2.49 10*3/uL 0.83-4.[address] [facility] Basophil percentageOrdered B y: Dr. Dempsey on 08-08-2022 Basophils/100 WBC (Bld) 0.3 % 0-[address] [facility] Bilirubin [Mass/Vol] 0.40 mg/dL 0.20-1.00 [facility] Comment on above: For patients on eltr ombopag therapy, use of Dimension [place] TBIL is not recommended. Chloride [Moles/Vol] 104 mmol/L 98-107 [facility] Eosinophils/100 WBC (Bld) 1.2 % 0-[address] [facility] Glucose [Mass/Vol] 103 mg/dL 74-106 [facility] Comment on above: Fasting Glucose resu lt from 100 to 125 mg/dL suggests IMPAIRED HOMEOSTASIS per A.D.A. criteria. Neutrophils (Bld) [#/Vol] 5.2 10*3/uL 2.0-7.[address] [facility] Neutrophils/100 WBC (Bld) 59.9 % 47-[address] [facility] Potassium [Moles/Vol] 4.2 mmol/L 3.5-5.1 [facility] Protein [Mass/Vol] 7.1 g/dL 6.4-8.2 [facility] Sodium [Moles/Vol] 140 mmol/L 136-145 [facility] WBC (Bld) [#/Vol] 8.7 10*3/uL 4.4-11.0 [facility] Blood erythrocytes count (nu mber/volume)Ordered By: Dr. Dempsey on 08-08-2022 RBC (Bld) [#/Vol] 4.29 10*6/uL 4.2-5.4 [facility] Blood hemoglobin measurement (mass/volume)Ordered By: Dr. Dempsey on 08-08-2022 Hemoglobin (Bld) [Mass/Vol] 12.6 g/dL 12.0-15.[address] [facility] Blood lymphocytes/100 leukoc ytesOrdered By: Dr. Dempsey on 08-08-2022 Lymphocytes/100 WBC (Bld) 28.7 % 19-[address] [facility] Blood monocytes/100 leukocyt esOrdered By: Dr. Dempsey on 08-08-2022 Monocytes/100 WBC (Bld) 9.6 % 0-[address] [facility] Blood platelet mean volumeOr dered By: Dr. Dempsey on 08-08-2022 Platelet mean volume (Bld) [Entitic vol] 10.5 fL 6.2-12.[address] [facility] Determination of erythrocyte mean corpuscular volume (MCV)Ordered By: Dr. Dempsey on 08-08-2022 MCV (RBC) [Entitic vol] 90.7 fL 81-[address] [facility] Direct bilirubinOrdered By: Dr. Dempsey on 08-08-2022 Bilirubin.direct [Mass/Vol] 0.16 mg/dL 0.00-0.[address] [facility] Hematocrit Auto (Bld) [Volum e fraction]Ordered By: Dr. Dempsey on 08-08-2022 Hematocrit (Bld) [Volume fraction] 38.9 % 37-[address] [facility] INR in Blood by Coagulation assayOrdered By: Dr. Dempsey on 08-08-2022 INR Coag (Bld) [Relative time] 1.5 {INR} [facility] Laboratory - Chemistry and C hemistry - challengeOrdered By: Dr. Dempsey on 08-08-2022 ALP [Catalytic activity/Vol] 124 U/L 45-[address] [facility] ALT [Catalytic activity/Vol] 187 U/L 13-[address] [facility] CO2 [Moles/Vol] 27.0 mmol/L 21.0-32.[address] [facility] Globulin (S) [Mass/Vol] 3.4 g/dL 2.2-4.[address] [facility] Urea nitrogen/Creatinine [Mass ratio] 28.2 mg/mg 10-[address] [facility] Laboratory - CoagulationOrde red By: Dr. Dempsey on 08-08-2022 aPTT Coag (Bld) [Time] 34.7 s 24.1-36.2 [facility] PT Coag (PPP) [Time] 17.8 s 11.7-14.9 [facility] Laboratory - Hematology and Cell countsOrdered By: Dr. Dempsey on 08-08-2022 Erythrocyte distribution width (RBC) [Entitic vol] 45.7 fL 35.1-43.[address] [facility] Erythrocyte distribution width (RBC) [Ratio] 14.0 % 11.6-14.[address] [facility] Immature granulocytes/100 WBC (Bld) 0.300 % 0.0-0.[address] [facility] Comment on above: IG% - Immature Granu locytes (promyelocytes, myelocytes and metamyelocytes) > 1% indicates that a LEFT SHIFT is Present. MCH (RBC) [Entitic mass] 29.4 pg 27.0-32.[address] [facility] Nucleated RBC/100 WBC (Bld) [Ratio] 0 % 0-[address] [facility] MCHC Auto (RBC) [Mass/Vol]Or dered By: Dr. Dempsey on 08-08-2022 MCHC (RBC) [Mass/Vol] 32.4 g/dL 32-36 [facility] No Panel InformationOrdered By: Dr. Hall on 08-08-2022 Troponin I High Sensitivity 9 pg/mL 3.0-54.[address] [facility] Comment on above: Please Note: New Debra t Units and Gender Specific Reference Ranges. For more information see Policy Stat Procedure [place] High Sensitivity Troponin (TNIH) and attachments. No Panel InformationOrdered By: Dr. Dempsey on 08-08-2022 Estimated Creatinine Clearance Calc 29.58 ml/min [facility] Estimated GFR (MDRD) Amer 54 mL/min >[address] [facility] Comment on above: GFR Calc Estimated GFR (MDRD) Non-Af Amer 45 mL/min >[address] [facility] Comment on above: Non- GFR Calc Troponin I High Sensitivity 8 pg/mL 3.0-54.[address] [facility] Comment on above: Please Note: New Debra t Units and Gender Specific Reference Ranges. For more information see Policy Stat Procedure [place] High Sensitivity Troponin (TNIH) and attachments. Platelets bldOrdered By: Dr. Dempsey on 08-08-2022 Platelets (Bld) [#/Vol] 314 10*3/uL 150-[address] [facility] Serum or plasma albumin michelle urement (mass/volume)Ordered By: Dr. Dempsey on 08-08-2022 Albumin [Mass/Vol] 3.7 g/dL 3.2-5.0 [facility] Serum or plasma calcium michelle urement (mass/volume)Ordered By: Dr. Dempsey on 08-08-2022 Calcium [Mass/Vol] 9.9 mg/dL 8.5-10.1 [facility] Serum or plasma creatinine m easurement (mass/volume)Ordered By: Dr. Dempsey on 08-08-2022 Creatinine [Mass/Vol] 1.24 mg/dL 0.55-1.02 [facility] Comment on above: The validity of the calculated GFR & GFRAA in patients over 70 years has not been determined. Clinical correlation is essential. Serum or plasma urea nitroge n measurement (mass/volume)Ordered By: Dr. Dempsey on 08-08-2022 Urea nitrogen [Mass/Vol] 35 mg/dL 7-[address] [facility] Thin prep Papanicolaou smear with manual screeningOrdered By: Dr. Dempsey on 08-08-2022 Thin prep Papanicolaou smear with manual screening 130 U/L 15-[address] [facility] Thin prep Papanicolaou smear with manual screening 9 5-[address] [facility] Absolute lymphocyte countOrd ered By: Caterina Bro on 07-25-2022 Lymphocytes Auto (Unsp spec) [#/Vol] 3.33 10*3/uL 0.83-4.[address] [facility] Basophil percentageOrdered B y: Caterina Bro on 07-25-2022 Basophils/100 WBC (Bld) 0.3 % 0-[address] [facility] Chloride [Moles/Vol] 105 mmol/L 98-107 [facility] Eosinophils/100 WBC (Bld) 1.3 % 0-[address] [facility] Glucose [Mass/Vol] 107 mg/dL 74-106 [facility] Comment on above: Fasting Glucose resu lt from 100 to 125 mg/dL suggests IMPAIRED HOMEOSTASIS per A.D.A. criteria. Neutrophils (Bld) [#/Vol] 3.3 10*3/uL 2.0-7.[address] [facility] Neutrophils/100 WBC (Bld) 44.7 % 47-[address] [facility] Potassium [Moles/Vol] 3.8 mmol/L 3.5-5.1 [facility] Sodium [Moles/Vol] 141 mmol/L 136-145 [facility] WBC (Bld) [#/Vol] 7.5 10*3/uL 4.4-11.0 [facility] Blood erythrocytes count (nu mber/volume)Ordered By: Caterina Bro on 07-25-2022 RBC (Bld) [#/Vol] 4.11 10*6/uL 4.2-5.4 [facility] Blood hemoglobin measurement (mass/volume)Ordered By: Caterina Bro on 07-25-2022 Hemoglobin (Bld) [Mass/Vol] 12.0 g/dL 12.0-15.[address] [facility] Blood lymphocytes/100 leukoc ytesOrdered By: Caterina Bro on 07-25-2022 Lymphocytes/100 WBC (Bld) 44.6 % 19-[address] [facility] Blood monocytes/100 leukocyt esOrdered By: Caterina Bro on 07-25-2022 Monocytes/100 WBC (Bld) 8.7 % 0-[address] [facility] Blood platelet mean volumeOr dered By: Caterina Bro on 07-25-2022 Platelet mean volume (Bld) [Entitic vol] 10.2 fL 6.2-12.[address] [facility] Determination of erythrocyte mean corpuscular volume (MCV)Ordered By: Caterina Bro on 07-25-2022 MCV (RBC) [Entitic vol] 91.0 fL 81-[address] [facility] Hematocrit Auto (Bld) [Volum e fraction]Ordered By: Caterina Bro on 07-25-2022 Hematocrit (Bld) [Volume fraction] 37.4 % 37-[address] [facility] Laboratory - Chemistry and C hemistry - challengeOrdered By: Caterina Bro on 07-25-2022 CO2 [Moles/Vol] 29.0 mmol/L 21.0-32.[address] [facility] Free T4 [Mass/Vol] 1.18 ng/dL 0.76-1.46 [facility] Magnesium [Mass/Vol] 2.3 mg/dL 1.6-2.6 [facility] Natriuretic peptide B (Bld) [Mass/Vol] 434.5 pg/mL 0-[address] [facility] Urea nitrogen/Creatinine [Mass ratio] 33.4 mg/mg 10-[address] [facility] Laboratory - Hematology and Cell countsOrdered By: Caterina Bro on 07-25-2022 Erythrocyte distribution width (RBC) [Entitic vol] 46.4 fL 35.1-43.[address] [facility] Erythrocyte distribution width (RBC) [Ratio] 13.9 % 11.6-14.[address] [facility] Immature granulocytes/100 WBC (Bld) 0.400 % 0.0-0.[address] [facility] Comment on above: IG% - Immature Granu locytes (promyelocytes, myelocytes and metamyelocytes) > 1% indicates that a LEFT SHIFT is Present. MCH (RBC) [Entitic mass] 29.2 pg 27.0-32.[address] [facility] Nucleated RBC/100 WBC (Bld) [Ratio] 0 % 0-[address] [facility] MCHC Auto (RBC) [Mass/Vol]Or dered By: Caterina Bro on 07-25-2022 MCHC (RBC) [Mass/Vol] 32.1 g/dL 32-36 [facility] No Panel InformationOrdered By: Caterina Bro on 07-25-2022 Estimated GFR (MDRD) Amer 71 mL/min >[address] [facility] Comment on above: GFR Calc Estimated GFR (MDRD) Non-Af Amer 58 mL/min >[address] [facility] Comment on above: Non- GFR Calc Free Triiodothyronine (T3) pg/dL 1.4 pg/mL 2.18-3.[address] [facility] Thyroid Stimulating Hormone (TSH) 3.08 uIU/mL 0.358-3.[address] [facility] Platelets bldOrdered By: Rogelio Bro on 07-25-2022 Platelets (Bld) [#/Vol] 352 10*3/uL 150-[address] [facility] Serum or plasma calcium michelle urement (mass/volume)Ordered By: Caterina Bro on 07-25-2022 Calcium [Mass/Vol] 9.5 mg/dL 8.5-10.1 [facility] Serum or plasma creatinine m easurement (mass/volume)Ordered By: Caterina Bro on 07-25-2022 Creatinine [Mass/Vol] 0.99 mg/dL 0.55-1.02 [facility] Comment on above: The validity of the calculated GFR & GFRAA in patients over 70 years has not been determined. Clinical correlation is essential. Serum or plasma urea nitroge n measurement (mass/volume)Ordered By: Caterina Bro on 07-25-2022 Urea nitrogen [Mass/Vol] 33 mg/dL 7-[address] [facility] Thin prep Papanicolaou smear with manual screeningOrdered By: Caterina Bro on 07-25-2022 Thin prep Papanicolaou smear with manual screening 7 5-[address] [facility] Absolute lymphocyte countOrd ered By: Nagi Freeman on 07-12-2022 Lymphocytes Auto (Unsp spec) [#/Vol] 2.29 10*3/uL 0.83-4.[address] [facility] Basophil percentageOrdered B y: Nagi Freeman on 07-12-2022 Basophils/100 WBC (Bld) 0.3 % 0-[address] [facility] Chloride [Moles/Vol] 103 mmol/L 98-107 [facility] Eosinophils/100 WBC (Bld) 2.3 % 0-[address] [facility] Glucose [Mass/Vol] 113 mg/dL 74-106 [facility] Comment on above: Fasting Glucose resu lt from 100 to 125 mg/dL suggests IMPAIRED HOMEOSTASIS per A.D.A. criteria. Neutrophils (Bld) [#/Vol] 3.0 10*3/uL 2.0-7.[address] [facility] Neutrophils/100 WBC (Bld) 50.2 % 47-[address] [facility] Potassium [Moles/Vol] 4.1 mmol/L 3.5-5.1 [facility] Sodium [Moles/Vol] 140 mmol/L 136-145 [facility] WBC (Bld) [#/Vol] 6.0 10*3/uL 4.4-11.0 [facility] Blood erythrocytes count (nu mber/volume)Ordered By: Nagi Freeman on 07-12-2022 RBC (Bld) [#/Vol] 4.23 10*6/uL 4.2-5.4 [facility] Blood hemoglobin measurement (mass/volume)Ordered By: Nagi Freeman on 07-12-2022 Hemoglobin (Bld) [Mass/Vol] 12.2 g/dL 12.0-15.[address] [facility] Blood lymphocytes/100 leukoc ytesOrdered By: Nagi Freeman on 07-12-2022 Lymphocytes/100 WBC (Bld) 38.2 % 19-[address] [facility] Blood monocytes/100 leukocyt esOrdered By: Nagi Freeman on 07-12-2022 Monocytes/100 WBC (Bld) 8.8 % 0-[address] [facility] Blood platelet mean volumeOr dered By: Nagi Freeman on 07-12-2022 Platelet mean volume (Bld) [Entitic vol] 10.0 fL 6.2-12.[address] [facility] Determination of erythrocyte mean corpuscular volume (MCV)Ordered By: Nagi Freeman on 07-12-2022 MCV (RBC) [Entitic vol] 88.9 fL 81-[address] [facility] Hematocrit Auto (Bld) [Volum e fraction]Ordered By: Nagi Freeman on 07-12-2022 Hematocrit (Bld) [Volume fraction] 37.6 % 37-[address] [facility] Laboratory - Chemistry and C hemistry - challengeOrdered By: Nagi Freeman on 07-12-2022 CO2 [Moles/Vol] 28.0 mmol/L 21.0-32.[address] [facility] Natriuretic peptide B (Bld) [Mass/Vol] 44.8 pg/mL 0-[address] [facility] Urea nitrogen/Creatinine [Mass ratio] 34.4 mg/mg 10-[address] [facility] Laboratory - Hematology and Cell countsOrdered By: Nagi Freeman on 07-12-2022 Erythrocyte distribution width (RBC) [Entitic vol] 44.1 fL 35.1-43.[address] [facility] Erythrocyte distribution width (RBC) [Ratio] 13.7 % 11.6-14.[address] [facility] Immature granulocytes/100 WBC (Bld) 0.200 % 0.0-0.[address] [facility] Comment on above: IG% - Immature Granu locytes (promyelocytes, myelocytes and metamyelocytes) > 1% indicates that a LEFT SHIFT is Present. MCH (RBC) [Entitic mass] 28.8 pg 27.0-32.[address] [facility] Nucleated RBC/100 WBC (Bld) [Ratio] 0 % 0-[address] [facility] MCHC Auto (RBC) [Mass/Vol]Or dered By: Nagi Freeman on 07-12-2022 MCHC (RBC) [Mass/Vol] 32.4 g/dL 32-36 [facility] No Panel InformationOrdered By: Nagi Freeman on 07-12-2022 Estimated GFR (MDRD) Amer 76 mL/min >[address] [facility] Comment on above: GFR Calc Estimated GFR (MDRD) Non-Af Amer 62 mL/min >[address] [facility] Comment on above: Non- GFR Calc Thyroid Stimulating Hormone (TSH) 2.27 uIU/mL 0.358-3.[address] [facility] Platelets bldOrdered By: Reinaldo Freeman on 07-12-2022 Platelets (Bld) [#/Vol] 315 10*3/uL 150-[address] [facility] Serum or plasma calcium michelle urement (mass/volume)Ordered By: Nagi Freeman on 07-12-2022 Calcium [Mass/Vol] 9.1 mg/dL 8.5-10.1 [facility] Serum or plasma creatinine m easurement (mass/volume)Ordered By: Nagi Freeman on 07-12-2022 Creatinine [Mass/Vol] 0.93 mg/dL 0.55-1.02 [facility] Comment on above: The validity of the calculated GFR & GFRAA in patients over 70 years has not been determined. Clinical correlation is essential. Serum or plasma urea nitroge n measurement (mass/volume)Ordered By: Nagi Freeman on 07-12-2022 Urea nitrogen [Mass/Vol] 32 mg/dL 7-[address] [facility] Thin prep Papanicolaou smear with manual screeningOrdered By: Nagi Freeman on 07-12-2022 Thin prep Papanicolaou smear with manual screening 9 5-[address] [facility] CT ABD/PEL WO IVCONon 2022 [facility] Comprehensive metabolic 2000 panelon 05-16-2022 Albumin [Mass/Vol] 4.3 g/dL 3.9 - 4.9 g/dL [facility] ALP [Catalytic activity/Vol] 96 U/L 34 - 123 U/L [facility] ALT [Catalytic activity/Vol] 27 U/L 7 - 38 U/L [facility] Anion gap [Moles/Vol] 14 mmol/L 9 - 18 mmol/L [facility] AST [Catalytic activity/Vol] 29 U/L 13 - 35 U/L [facility] Bilirubin [Mass/Vol] 0.3 mg/dL 0.2 - 1 .3 mg/dL [facility] Calcium [Mass/Vol] 10.2 mg/dL 8.5 - 10. 2 mg/dL [facility] Chloride [Moles/Vol] 98 mmol/L 97 - 10 5 mmol/L [facility] CO2 [Moles/Vol] 27 mmol/L 22 - 30 mmol/L [facility] Creatinine [Mass/Vol] 0.76 mg/dL 0.58 - 0.96 mg/dL [facility] Estimated Glomerular Filtration Rate 82 mL/min/1.73m >=60 mL/min/1.7 3m [facility] Glucose [Mass/Vol] 79 mg/dL 74 - 99 mg/dL [facility] Potassium [Moles/Vol] 4.1 mmol/L 3.7 - 5.1 mmol/L [facility] Protein [Mass/Vol] 6.8 g/dL 6.3 - 8.0 g/dL [facility] Sodium [Moles/Vol] 139 mmol/L 136 - 144 mmol/L [facility] Urea nitrogen [Mass/Vol] 20 mg/dL 7 - 21 mg/dL [facility] T3 BLDon 05-16-2022 T3 [Mass/Vol] 109 ng/dL 79 - 165 ng/dL [facility] T4 FREE/FREE THYROXon 2022 Free T4 [Mass/Vol] 1.1 ng/dL 0.9 - 1.7 ng/dL [facility] TSH BLDon 05-16-2022 TSH Qn 3.900 m[IU]/L 0.270 - 4.200 mIU/L [facility] XR Chest PA and Lateralon IMPRESSION: No acute radiographic abnormality. [employer] Certified [employer] Associate: [facility]ITALRashaun Transcribe Date/Time: May 16 2022 10:28A Dictated by : JEFFREY RICK MD This examination was interpreted and the report reviewed and electronically signed by: JEFFREY RICK MD on May 16 2022 10:31AM [facility] * * *Final Report* * * DATE OF EXAM: May 15 2022 12:47PM WOX [id number] - XR CHEST 2V FRONTAL/LAT / PROCEDURE REASON: multiple diagnoses * * * * Physician Interpretation * * * * EXAMINATION: CHEST RADIOGRAPH (2 VIEW FRONTAL & LATERAL) CLINICAL HISTORY: Fever, unspecified fever cause Shortness of breath MQ: XC2_6 EXAM DATE/TIME: 05/15/2022 12:47 PM COMPARISON: 04/18/22 RESULT: Lines, tubes, and devices: None. Lungs and pleura: No consolidation. No lung mass. No pleural effusion. No pneumothorax. Cardiomediastinal silhouette: Stable cardiomediastinal silhouette. Bones and soft tissues: Unremarkable. DIVISION OF RADIOLOGY Provider, Miryam Annika [facility] - 05/16/2022 * * *Final Report* * * DATE OF EXAM: May 15 2022 12:47PM WOX [id number] - XR CHEST 2V FRONTAL/LAT / PROCEDURE REASON: multiple diagnoses * * * * Physician Interpretation * * * * EXAMINATION: CHEST RADIOGRAPH (2 VIEW FRONTAL & LATERAL) CLINICAL HISTORY: Fever, unspecified fever cause Shortness of breath MQ: XC2_6 EXAM DATE/TIME: 05/15/2022 12:47 PM COMPARISON: 04/18/22 RESULT: Lines, tubes, and devices: None. Lungs and pleura: No consolidation. No lung mass. No pleural effusion. No pneumothorax. Cardiomediastinal silhouette: Stable cardiomediastinal silhouette. Bones and soft tissues: Unremarkable. IMPRESSION IMPRESSION: No acute radiographic abnormality. [employer] Certified Network Associate: [facility] Transcribe Date/Time: May 16 2022 10:28A Dictated by : JEFFREY RICK MD This examination was interpreted and the report reviewed and electronically signed by: JEFFREY RICK MD on May 16 2022 10:31AM EST [facility] XR Chest PA and LateralOrder ed By: [facility] Provider on 05-16-2022 [facility] CBC W Auto Differential pane l (Bld)on 05-15-2022 Basophils (Bld) [#/Vol] 0.03 10*3/uL <0.11 k/uL [facility] Basophils/100 WBC (Bld) 0.4 % [facility] Differential cell count method Nom (Bld) Auto [facility] Eosinophils (Bld) [#/Vol] 0.09 10*3/uL <0.46 k/uL [facility] Eosinophils/100 WBC (Bld) 1.1 % [facility] Erythrocyte distribution width (RBC) [Ratio] 12.7 % 11.5 - 15.0 % [facility] Hematocrit (Bld) [Volume fraction] 39.0 % 36.0 - 46.0 % [facility] Hemoglobin (Bld) [Mass/Vol] 12.4 g/dL 11.5 - 15.5 g/dL [facility] Immature granulocytes (Bld) [#/Vol] <0.10 k/uL [facility] Immature granulocytes/100 WBC (Bld) 0.2 % [facility] Lymphocytes (Bld) [#/Vol] 2.84 10*3/uL 1.00 - 4.00 k/uL [facility] Lymphocytes/100 WBC (Bld) 35.1 % [facility] MCH (RBC) [Entitic mass] 29.1 pg 26.0 - 34.0 pg [facility] MCHC (RBC) [Mass/Vol] 31.8 g/dL 30.5 - 36.0 g/dL [facility] MCV (RBC) [Entitic vol] 91.5 fL 80.0 - 100.0 fL [facility] Monocytes (Bld) [#/Vol] 0.65 10*3/uL <0.87 k/uL [facility] Monocytes/100 WBC (Bld) 8.0 % [facility] Neutrophils (Bld) [#/Vol] 4.47 10*3/uL 1.45 - 7.50 k/uL [facility] Neutrophils/100 WBC (Bld) 55.2 % [facility] Nucleated RBC (Bld) [#/Vol] <0.01 k/uL [facility] Nucleated RBC/100 WBC (Bld) [Ratio] 0.0 /100 WBC [facility] Platelet mean volume (Bld) [Entitic vol] 10.3 fL 9.0 - 12.7 fL [facility] Platelets (Bld) [#/Vol] 396 10*3/uL 150 - 400 k/uL [facility] RBC (Bld) [#/Vol] 4.26 10*6/uL 3.90 - 5.20 m/uL [facility] WBC (Bld) [#/Vol] 8.10 10*3/uL 3.70 - 11.00 k/uL [facility] UA DIP, URINE (POC)on 2022 BILIRUBIN UA (POCT) Negative Negative [facility] CLARITY UA (POCT) Clear [facility] COLOR UA (POCT) Yellow [facility] GLUCOSE UA (POCT) Negative Negative mg/dL [facility] HEMOGLOBIN/BLOOD UA (POCT) Negative Negative [facility] KETONE UA (POCT) Negative Negative mg/dL [facility] LEUKOCYTES UA (POCT) Negative [facility] NITRITE UA (POCT) Negative [facility] PH UA (POCT) 7.0 4.5 - 8.0 [facility] Protein Ql (U) Negative Negative mg/dL [facility] SPECIFIC GRAVITY UA (POCT) 1.020 1.005 - 1.030 [facility] UROBILINOGEN UA (POCT) 0.2 E.U./dL Mulu l E.U./dL [facility] XR CHEST 2V FRONTAL/LATon [facility] XR Chest PA and Lateralon Radiology Study observation (narrative) [facility] Absolute lymphocyte countOrd ered By: Dr. Hilton on 04-27-2022 Lymphocytes Auto (Unsp spec) [#/Vol] 2.08 10*3/uL 0.83-4.[address] [facility] Basophil percentageOrdered B y: Dr. Hilton on 04-27-2022 Basophils/100 WBC (Bld) 0.2 % 0-[address] [facility] Chloride [Moles/Vol] 105 mmol/L 98-107 [facility] Eosinophils/100 WBC (Bld) 0.5 % 0-[address] [facility] Glucose [Mass/Vol] 100 mg/dL 74-106 [facility] Comment on above: Fasting Glucose resu lt from 100 to 125 mg/dL suggests IMPAIRED HOMEOSTASIS per A.D.A. criteria. Neutrophils (Bld) [#/Vol] 6.8 10*3/uL 2.0-7.[address] [facility] Neutrophils/100 WBC (Bld) 70.2 % 47-[address] [facility] Potassium [Moles/Vol] 3.7 mmol/L 3.5-5.1 [facility] Sodium [Moles/Vol] 141 mmol/L 136-145 [facility] WBC (Bld) [#/Vol] 9.7 10*3/uL 4.4-11.0 [facility] Blood erythrocytes count (nu mber/volume)Ordered By: Dr. Hilton on 04-27-2022 RBC (Bld) [#/Vol] 4.03 10*6/uL 4.2-5.4 [facility] Blood hemoglobin measurement (mass/volume)Ordered By: Dr. Hilton on 04-27-2022 Hemoglobin (Bld) [Mass/Vol] 12.1 g/dL 12.0-15.[address] [facility] Blood lymphocytes/100 leukoc ytesOrdered By: Dr. Hilton on 04-27-2022 Lymphocytes/100 WBC (Bld) 21.4 % 19-[address] [facility] Blood monocytes/100 leukocyt esOrdered By: Dr. Hilton on 04-27-2022 Monocytes/100 WBC (Bld) 7.3 % 0-[address] [facility] Blood platelet mean volumeOr dered By: Dr. Hilton on 04-27-2022 Platelet mean volume (Bld) [Entitic vol] 10.1 fL 6.2-12.[address] [facility] Determination of erythrocyte mean corpuscular volume (MCV)Ordered By: Dr. Hilton on 04-27-2022 MCV (RBC) [Entitic vol] 91.8 fL 81-[address] [facility] Hematocrit Auto (Bld) [Volum e fraction]Ordered By: Dr. Hilton on 04-27-2022 Hematocrit (Bld) [Volume fraction] 37.0 % 37-[address] [facility] Influenza virus A and B and SARS-CoV-2 (COVID-19) Ag panel - Upper respiratory specimOrdered By: Dr. Hilton on 04-27-2022 SARS-CoV-2 (COVID-19) RNA NANI+probe Ql (Resp) [facility] Laboratory - Chemistry and C hemistry - challengeOrdered By: Dr. Hilton on 04-27-2022 CK [Catalytic activity/Vol] 41 U/L 26-[address] [facility] CO2 [Moles/Vol] 30.0 mmol/L 21.0-32.[address] [facility] Magnesium [Mass/Vol] 2.1 mg/dL 1.6-2.6 [facility] Natriuretic peptide B (Bld) [Mass/Vol] 336.7 pg/mL 0-[address] [facility] Urea nitrogen/Creatinine [Mass ratio] 33.0 mg/mg 10-[address] [facility] Laboratory - Hematology and Cell countsOrdered By: Dr. Hilton on 04-27-2022 Erythrocyte distribution width (RBC) [Entitic vol] 44.3 fL 35.1-43.[address] [facility] Erythrocyte distribution width (RBC) [Ratio] 13.2 % 11.6-14.[address] [facility] Immature granulocytes/100 WBC (Bld) 0.400 % 0.0-0.[address] [facility] Comment on above: IG% - Immature Granu locytes (promyelocytes, myelocytes and metamyelocytes) > 1% indicates that a LEFT SHIFT is Present. MCH (RBC) [Entitic mass] 30.0 pg 27.0-32.[address] [facility] Nucleated RBC/100 WBC (Bld) [Ratio] 0 % 0-[address] [facility] MCHC Auto (RBC) [Mass/Vol]Or dered By: Dr. Hilton on 04-27-2022 MCHC (RBC) [Mass/Vol] 32.7 g/dL 32-36 [facility] No Panel InformationOrdered By: Dr. Hilton on 04-27-2022 Estimated Creatinine Clearance Calc 37.24 ml/min [facility] Estimated GFR (MDRD) Amer 92 mL/min >[address] [facility] Comment on above: GFR Calc Estimated GFR (MDRD) Non-Af Amer 76 mL/min >[address] [facility] Comment on above: Non- GFR Calc Troponin I High Sensitivity 7 pg/mL 3.0-54.[address] [facility] Comment on above: Please Note: New Debra t Units and Gender Specific Reference Ranges. For more information see Policy Stat Procedure [place] High Sensitivity Troponin (TNIH) and attachments. Platelets bldOrdered By: Dr. Hilton on 04-27-2022 Platelets (Bld) [#/Vol] 307 10*3/uL 150-[address] [facility] Serum or plasma calcium michelle urement (mass/volume)Ordered By: Dr. Hilton on 04-27-2022 Calcium [Mass/Vol] 9.0 mg/dL 8.5-10.1 [facility] Serum or plasma creatinine m easurement (mass/volume)Ordered By: Dr. Hilton on 04-27-2022 Creatinine [Mass/Vol] 0.79 mg/dL 0.55-1.02 [facility] Comment on above: The validity of the calculated GFR & GFRAA in patients over 70 years has not been determined. Clinical correlation is essential. Serum or plasma urea nitroge n measurement (mass/volume)Ordered By: Dr. Hilton on 04-27-2022 Urea nitrogen [Mass/Vol] 26 mg/dL 7-[address] [facility] Thin prep Papanicolaou smear with manual screeningOrdered By: Dr. Hilton on 04-27-2022 Thin prep Papanicolaou smear with manual screening 6 -[address] [facility] XR Chest PA and Lateralon IMPRESSION: No persistent or developing acute process [employer] Certified Network Associate: BALJIT Transcribe Date/Time: Apr 19 2022 12:24P Dictated by : JEFFREY RICK MD This examination was interpreted and the report reviewed and electronically signed by: JEFFREY RICK MD on Apr 19 2022 12:31PM [facility] * * *Final Report* * * DATE OF EXAM: Apr 18 2022 11:46AM WOX [id number] - XR CHEST 2V FRONTAL/LAT / PROCEDURE REASON: Pneumonia of right middle lobe due to infectious organism * * * * Physician Interpretation * * * * EXAMINATION: CHEST RADIOGRAPH (2 VIEW FRONTAL & LATERAL) CLINICAL HISTORY: Pneumonia of right middle lobe due to infectious organism MQ: XC2_6 EXAM DATE/TIME: 04/18/2022 11:46 AM COMPARISON: 03/15/2022 RESULT: Lines, tubes, and devices: None. Lungs and pleura: No consolidation. No lung mass. No pleural effusion. No pneumothorax. No persistent or developing acute process Cardiomediastinal silhouette: Stable cardiomediastinal silhouette. Bones and soft tissues: Unremarkable. DIVISION OF RADIOLOGY Provider, [facility] - 04/19/2022 * * *Final Report* * * DATE OF EXAM: Apr 18 2022 11:46AM WOX 5291 - XR CHEST 2V FRONTAL/LAT / PROCEDURE REASON: Pneumonia of right middle lobe due to infectious organism * * * * Physician Interpretation * * * * EXAMINATION: CHEST RADIOGRAPH (2 VIEW FRONTAL & LATERAL) CLINICAL HISTORY: Pneumonia of right middle lobe due to infectious organism MQ: XC2_6 EXAM DATE/TIME: 04/18/2022 11:46 AM COMPARISON: 03/15/2022 RESULT: Lines, tubes, and devices: None. Lungs and pleura: No consolidation. No lung mass. No pleural effusion. No pneumothorax. No persistent or developing acute process Cardiomediastinal silhouette: Stable cardiomediastinal silhouette. Bones and soft tissues: Unremarkable. IMPRESSION IMPRESSION: No persistent or developing acute process [employer] Certified Network Associate: BALJIT Transcribe Date/Time: Apr 19 2022 12:24P Dictated by : JEFFREY RICK MD This examination was interpreted and the report reviewed and electronically signed by: JEFFREY RICK MD on Apr 19 2022 12:31PM EST [facility] XR Chest PA and LateralOrder ed By: Ccf Provider on 04-19-2022 [facility] XR Chest PA and Lateralon Radiology Study observation (narrative) [facility] Laboratory - Chemistry and C hemistry - challengeOrdered By: Dr. Ibarra on 04-16-2022 Natriuretic peptide B (Bld) [Mass/Vol] 512.7 pg/mL 0-[address] [facility] Basophil percentageOrdered B y: Dr. Ibarra on 04-15-2022 Chloride [Moles/Vol] 106 mmol/L 98-107 [facility] Glucose [Mass/Vol] 101 mg/dL 74-106 [facility] Comment on above: Fasting Glucose resu lt from 100 to 125 mg/dL suggests IMPAIRED HOMEOSTASIS per A.D.A. criteria. Potassium [Moles/Vol] 4.1 mmol/L 3.5-5.1 [facility] Sodium [Moles/Vol] 142 mmol/L 136-145 [facility] WBC (Bld) [#/Vol] 10.4 10*3/uL 4.4-11.0 [facility] Blood erythrocytes count (nu mber/volume)Ordered By: Dr. Ibarra on 04-15-2022 RBC (Bld) [#/Vol] 4.32 10*6/uL 4.2-5.4 [facility] Blood hemoglobin measurement (mass/volume)Ordered By: Dr. Ibarra on 04-15-2022 Hemoglobin (Bld) [Mass/Vol] 13.1 g/dL 12.0-15.[address] [facility] Blood platelet mean volumeOr dered By: Dr. Ibarra on 04-15-2022 Platelet mean volume (Bld) [Entitic vol] 10.0 fL 6.2-12.[address] [facility] Determination of erythrocyte mean corpuscular volume (MCV)Ordered By: Dr. Ibarra on 04-15-2022 MCV (RBC) [Entitic vol] 91.0 fL 81-[address] [facility] Hematocrit Auto (Bld) [Volum e fraction]Ordered By: Dr. Ibarra on 04-15-2022 Hematocrit (Bld) [Volume fraction] 39.3 % 37-[address] [facility] Laboratory - Chemistry and C hemistry - challengeOrdered By: Dr. Ibarra on 04-15-2022 CO2 [Moles/Vol] 28.0 mmol/L 21.0-32.[address] [facility] Magnesium [Mass/Vol] 2.3 mg/dL 1.6-2.6 [facility] Urea nitrogen/Creatinine [Mass ratio] 36.3 mg/mg 10-[address] [facility] Laboratory - Hematology and Cell countsOrdered By: Dr. Ibarra on 04-15-2022 Erythrocyte distribution width (RBC) [Entitic vol] 43.8 fL 35.1-43.[address] [facility] Erythrocyte distribution width (RBC) [Ratio] 13.2 % 11.6-14.[address] [facility] MCH (RBC) [Entitic mass] 30.3 pg 27.0-32.[address] [facility] MCHC Auto (RBC) [Mass/Vol]Or dered By: Dr. Ibarra on 04-15-2022 MCHC (RBC) [Mass/Vol] 33.3 g/dL 32-36 [facility] No Panel InformationOrdered By: Dr. Ibarra on 04-15-2022 Estimated GFR (MDRD) Amer 68 mL/min >[address] [facility] Comment on above: GFR Calc Estimated GFR (MDRD) Non-Af Amer 56 mL/min >[address] [facility] Comment on above: Non- GFR Calc Platelets bldOrdered By: Dr. Ibarra on 04-15-2022 Platelets (Bld) [#/Vol] 416 10*3/uL 150-[address] [facility] Serum or plasma calcium michelle urement (mass/volume)Ordered By: Dr. Ibarra on 04-15-2022 Calcium [Mass/Vol] 9.4 mg/dL 8.5-10.1 [facility] Serum or plasma creatinine m easurement (mass/volume)Ordered By: Dr. Ibarra on 04-15-2022 Creatinine [Mass/Vol] 1.02 mg/dL 0.55-1.02 [facility] Comment on above: The validity of the calculated GFR & GFRAA in patients over 70 years has not been determined. Clinical correlation is essential. Serum or plasma urea nitroge n measurement (mass/volume)Ordered By: Dr. Ibarra on 04-15-2022 Urea nitrogen [Mass/Vol] 37 mg/dL 7-[address] [facility] Thin prep Papanicolaou smear with manual screeningOrdered By: Dr. Ibarra on 04-15-2022 Thin prep Papanicolaou smear with manual screening 8 5-[address] [facility] XR Chest PA and Lateralon IMPRESSION: Mild reticular nodular opacities within the bilateral mid to lower lung zones suspect for an infectious/inflammatory process. [employer] Certified [employer] Associate: BALJIT Transcribe Date/Time: Mar 18 2022 8:30A Dictated by : BRENNAN CAMPOS MD This examination was interpreted and the report reviewed and electronically signed by: BRENNAN CAMPOS MD on Mar 18 2022 8:33AM [facility] * * *Final Report* * * DATE OF EXAM: Mar 15 2022 12:27PM WOX 5291 - XR CHEST 2V FRONTAL/LAT / PROCEDURE REASON: multiple diagnoses * * * * Physician Interpretation * * * * EXAMINATION: CHEST RADIOGRAPH (2 VIEW FRONTAL & LATERAL) CLINICAL HISTORY: Chest pain, unspecified type Acute cough MQ: XC2_6 EXAM DATE/TIME: 03/15/2022 12:27 PM COMPARISON: Chest x-ray dated May 06, 2018 RESULT: Lines, tubes, and devices: None. Lungs and pleura: Mild reticular nodular opacities within the bilateral mid to lower lung zones suspect for an infectious/inflammatory process. No pleural effusion or pneumothorax. Cardiomediastinal silhouette: Stable cardiomediastinal silhouette. Bones and soft tissues: Degenerative changes are present within the thoracic spine. Status post cervical fusion. DIVISION OF RADIOLOGY Provider, [facility] - 03/18/2022 * * *Final Report* * * DATE OF EXAM: Mar 15 2022 12:27PM WOX 5291 - XR CHEST 2V FRONTAL/LAT / PROCEDURE REASON: multiple diagnoses * * * * Physician Interpretation * * * * EXAMINATION: CHEST RADIOGRAPH (2 VIEW FRONTAL & LATERAL) CLINICAL HISTORY: Chest pain, unspecified type Acute cough MQ: XC2_6 EXAM DATE/TIME: 03/15/2022 12:27 PM COMPARISON: Chest x-ray dated May 06, 2018 RESULT: Lines, tubes, and devices: None. Lungs and pleura: Mild reticular nodular opacities within the bilateral mid to lower lung zones suspect for an infectious/inflammatory process. No pleural effusion or pneumothorax. Cardiomediastinal silhouette: Stable cardiomediastinal silhouette. Bones and soft tissues: Degenerative changes are present within the thoracic spine. Status post cervical fusion. IMPRESSION IMPRESSION: Mild reticular nodular opacities within the bilateral mid to lower lung zones suspect for an infectious/inflammatory process. [employer] Certified [employer] Associate: PSCB Transcribe Date/Time: Mar 18 2022 8:30A Dictated by : BRENNAN CAMPOS MD This examination was interpreted and the report reviewed and electronically signed by: BRENNAN CAMPOS MD on Mar 18 2022 8:33AM EST [facility] XR Chest PA and LateralOrder ed By: Cc Provider on 03-18-2022 [facility] XR Chest PA and Lateralon Radiology Study observation (narrative) [facility] Laboratory - Microbiology an d Antimicrobial susceptibilityon 03-06-2022 SARS-CoV-2 (COVID-19) RNA NANI+probe Ql (Unsp spec) Not detected [facility] Work Phone: Absolute lymphocyte counton 02-27-2022 Lymphocytes Auto (Unsp spec) [#/Vol] 3.18 10*3/uL 0.83-4.[address] [facility] Work Phone: Basophil percentageon 2021 Basophils/100 WBC (Bld) 0.3 % 0-[address] [facility] Work Phone: Chloride [Moles/Vol] 109 mmol/L 98-107 [facility] Work [facility]: Eosinophils/100 WBC (Bld) 2.5 % 0-[address] [facility] Work Phone: Glucose [Mass/Vol] 114 mg/dL 74-106 [facility] Work Phone: [phone] Comment on above: Fasting Glucose resu lt from 100 to 125 mg/dL suggests IMPAIRED HOMEOSTASIS per A.D.A. criteria. Neutrophils (Bld) [#/Vol] 3.3 10*3/uL 2.0-7.[address] [facility] Work Phone: Neutrophils/100 WBC (Bld) 45.4 % 47-[address] [facility] Work Phone: [phone] Potassium [Moles/Vol] 4.4 mmol/L 3.5-5.1 [facility] Work Phone: Sodium [Moles/Vol] 142 mmol/L 136-145 [facility] Work Phone: [phone] WBC (Bld) [#/Vol] 7.2 10*3/uL 4.4-11.0 [facility] Work Phone: [phone] Blood erythrocytes count (nu mber/volume)on 02-27-2022 RBC (Bld) [#/Vol] 4.00 10*6/uL 4.2-5.4 [facility] Work Phone: Blood hemoglobin measurement (mass/volume)on 02-27-2022 Hemoglobin (Bld) [Mass/Vol] 12.3 g/dL 12.0-15.[address] [facility] Work Phone: [phone] Blood lymphocytes/100 leukoc yteson 02-27-2022 Lymphocytes/100 WBC (Bld) 44.3 % 19-[address] [facility] Work Phone: Blood monocytes/100 leukocyt eson 02-27-2022 Monocytes/100 WBC (Bld) 7.4 % 0-[address] [facility] Work Phone: Blood platelet mean volumeon 02-27-2022 Platelet mean volume (Bld) [Entitic vol] 9.9 fL 6.2-12.[address] [facility] Work Phone: Determination of erythrocyte mean corpuscular volume (MCV)on 02-27-2022 MCV (RBC) [Entitic vol] 92.5 fL 81-[address] [facility] Work Phone: Hematocrit Auto (Bld) [Volum e fraction]on 02-27-2022 Hematocrit (Bld) [Volume fraction] 37.0 % 37-[address] [facility] Work Phone: Laboratory - Chemistry and C hemistry - challengeon 02-27-2022 CO2 [Moles/Vol] 29.0 mmol/L 21.0-32.[address] [facility] Work Phone: Magnesium [Mass/Vol] 2.2 mg/dL 1.6-2.6 [facility] Work Phone: Urea nitrogen/Creatinine [Mass ratio] 40.9 mg/mg 10-[address] [facility] Work Phone: Laboratory - Hematology and Cell countson 02-27-2022 Erythrocyte distribution width (RBC) [Entitic vol] 43.3 fL 35.1-43.[address] [facility] Work Phone: Erythrocyte distribution width (RBC) [Ratio] 12.7 % 11.6-14.[address] [facility] Work Phone: Immature granulocytes/100 WBC (Bld) 0.100 % 0.0-0.[address] [facility] Work Phone: Comment on above: IG% - Immature Granu locytes (promyelocytes, myelocytes and metamyelocytes) > 1% indicates that a LEFT SHIFT is Present. MCH (RBC) [Entitic mass] 30.8 pg 27.0-32.[address] [facility] Work Phone: Nucleated RBC/100 WBC (Bld) [Ratio] 0 % 0-[address] [facility] Work Phone: MCHC Auto (RBC) [Mass/Vol]on 02-27-2022 MCHC (RBC) [Mass/Vol] 33.2 g/dL 32-36 [facility] Work Phone: No Panel Informationon 02-27 Estimated GFR (MDRD) Amer 83 mL/min >[address] [facility] Work Phone: Comment on above: GFR Calc Estimated GFR (MDRD) Non-Af Amer 69 mL/min >[address] [facility] Work Phone: Comment on above: Non- GFR Calc Thyroid Stimulating Hormone (TSH) 2.39 uIU/mL 0.358-3.[address] [facility] Work Phone: Platelets bldon 02-27-2022 Platelets (Bld) [#/Vol] 276 10*3/uL 150-[address] [facility] Work Phone: Serum or plasma calcium michelle urement (mass/volume)on 02-27-2022 Calcium [Mass/Vol] 9.5 mg/dL 8.5-10.1 [facility] Work Phone: Serum or plasma creatinine m easurement (mass/volume)on 02-27-2022 Creatinine [Mass/Vol] 0.86 mg/dL 0.55-1.02 [facility] Work Phone: Comment on above: The validity of the calculated GFR & GFRAA in patients over 70 years has not been determined. Clinical correlation is essential. Serum or plasma urea nitroge n measurement (mass/volume)on 02-27-2022 Urea nitrogen [Mass/Vol] 35 mg/dL 7-[address] [facility] Work Phone: Thin prep Papanicolaou smear with manual screeningon 02-27-2022 Thin prep Papanicolaou smear with manual screening 4 5-[address] [facility] Work Phone: STREP A MOLECULAR (POC)on Procedural Control Valid [facility] Strep A (POCT) Negative Negative [facility] UA DIP, URINE (POC)on 2021 BILIRUBIN UA (POCT) Negative Negative [facility] CLARITY UA (POCT) Clear [facility] COLOR UA (POCT) Yellow [facility] GLUCOSE UA (POCT) Negative Negative mg/dL [facility] HEMOGLOBIN/BLOOD UA (POCT) Small Abnormal Negative [facility] KETONE UA (POCT) Trace Negative mg/dL [facility] LEUKOCYTES UA (POCT) Small Abnormal Negative [facility] NITRITE UA (POCT) Negative Negative [facility] PH UA (POCT) 5.5 4.5 - 8.0 [facility] Protein Ql (U) Negative Negative mg/dL [facility] SPECIFIC GRAVITY UA (POCT) 1.025 1.005 - 1.030 [facility] UROBILINOGEN UA (POCT) 0.2 E.U./dL Mulu l E.U./dL [facility] Absolute lymphocyte counton 12-21-2021 Lymphocytes Auto (Unsp spec) [#/Vol] 2.79 10*3/uL 0.83-4.[address] [facility] Work Phone: Basophil percentageon 2021 Basophils/100 WBC (Bld) 0.3 % 0-[address] [facility] Work Phone: Chloride [Moles/Vol] 104 mmol/L 98-107 [facility] Work Phone: Eosinophils/100 WBC (Bld) 2.3 % 0-[address] [facility] Work Phone: Glucose [Mass/Vol] 93 mg/dL 74-106 [facility] Work Phone: Neutrophils (Bld) [#/Vol] 3.7 10*3/uL 2.0-7.[address] [facility] Work Phone: Neutrophils/100 WBC (Bld) 50.1 % 47-[address] [facility] Work Phone: Potassium [Moles/Vol] 4.1 mmol/L 3.5-5.1 [facility] Work Phone: Sodium [Moles/Vol] 140 mmol/L 136-145 [facility] Work Phone: WBC (Bld) [#/Vol] 7.3 10*3/uL 4.4-11.0 [facility] Work Phone: Blood erythrocytes count (nu mber/volume)on 12-21-2021 RBC (Bld) [#/Vol] 3.96 10*6/uL 4.2-5.4 [facility] Work Phone: Blood hemoglobin measurement (mass/volume)on 12-21-2021 Hemoglobin (Bld) [Mass/Vol] 12.2 g/dL 12.0-15.[address] [facility] Work Phone: Blood lymphocytes/100 leukoc yteson 12-21-2021 Lymphocytes/100 WBC (Bld) 38.3 % 19-[address] [facility] Work Phone: Blood monocytes/100 leukocyt eson 12-21-2021 Monocytes/100 WBC (Bld) 8.6 % 0-[address] [facility] Work Phone: Blood platelet mean volumeon 12-21-2021 Platelet mean volume (Bld) [Entitic vol] 10.2 fL 6.2-12.[address] [facility] Work Phone: Determination of erythrocyte mean corpuscular volume (MCV)on 12-21-2021 MCV (RBC) [Entitic vol] 93.4 fL 81-[address] [facility] Work Phone: Hematocrit Auto (Bld) [Volum e fraction]on 12-21-2021 Hematocrit (Bld) [Volume fraction] 37.0 % 37-[address] [facility] Work Phone: Laboratory - Chemistry and C hemistry - challengeon 12-21-2021 CO2 [Moles/Vol] 32.0 mmol/L 21.0-32.[address] [facility] Work Phone: Natriuretic peptide B (Bld) [Mass/Vol] 124.3 pg/mL 0-[address] [facility] Work Phone: Urea nitrogen/Creatinine [Mass ratio] 44.0 mg/mg 10-[address] [facility] Work Phone: Laboratory - Hematology and Cell countson 12-21-2021 Erythrocyte distribution width (RBC) [Entitic vol] 42.8 fL 35.1-43.[address] [facility] Work Phone: Erythrocyte distribution width (RBC) [Ratio] 12.4 % 11.6-14.[address] [facility] Work Phone: Immature granulocytes/100 WBC (Bld) 0.400 % 0.0-0.[address] [facility] Work Phone: Comment on above: IG% - Immature Granu locytes (promyelocytes, myelocytes and metamyelocytes) > 1% indicates that a LEFT SHIFT is Present. MCH (RBC) [Entitic mass] 30.8 pg 27.0-32.[address] [facility] Work Phone: Nucleated RBC/100 WBC (Bld) [Ratio] 0 % 0-[address] [facility] Work Phone: MCHC Auto (RBC) [Mass/Vol]on 12-21-2021 MCHC (RBC) [Mass/Vol] 33.0 g/dL 32-36 [facility] Work Phone: No Panel Informationon 12-21 Estimated GFR (MDRD) Amer 101 mL/min >[address] [facility] Work Phone: Comment on above: GFR Calc Estimated GFR (MDRD) Non-Af Amer 83 mL/min >[address] [facility] Work Phone: Comment on above: Non- GFR Calc Platelets bldon 12-21-2021 Platelets (Bld) [#/Vol] 333 10*3/uL 150-[address] [facility] Work Phone: Serum or plasma calcium michelle urement (mass/volume)on 12-21-2021 Calcium [Mass/Vol] 9.5 mg/dL 8.5-10.1 [facility] Work Phone: Serum or plasma creatinine m easurement (mass/volume)on 12-21-2021 Creatinine [Mass/Vol] 0.73 mg/dL 0.55-1.02 [facility] Work Phone: Comment on above: The validity of the calculated GFR & GFRAA in patients over 70 years has not been determined. Clinical correlation is essential. Serum or plasma urea nitroge n measurement (mass/volume)on 12-21-2021 Urea nitrogen [Mass/Vol] 32 mg/dL 7-[address] [facility] Work Phone: Thin prep Papanicolaou smear with manual screeningon 12-21-2021 Thin prep Papanicolaou smear with manual screening 4 5-[address] [facility] Work Phone: UA DIP, URINE (POC)on 2021 BILIRUBIN UA (POCT) Negative Negative [place] [facility] CLARITY UA (POCT) Clear [facility] COLOR UA (POCT) Yellow [facility] GLUCOSE UA (POCT) Negative Negative mg/dL [facility] HEMOGLOBIN/BLOOD UA (POCT) Negative Negative [facility] KETONE UA (POCT) Negative Negative mg/dL [facility] LEUKOCYTES UA (POCT) Negative Negative [facility] NITRITE UA (POCT) Negative Negative [facility] PH UA (POCT) 8.0 4.5 - 8.0 [facility] Protein Ql (U) Negative Negative mg/dL [facility] SPECIFIC GRAVITY UA (POCT) 1.020 1.005 - 1.030 [facility] UROBILINOGEN UA (POCT) 0.2 E.U./dL Mulu l E.U./dL [facility] XR Foot - right AP and Later al and obliqueon 05-02-2021 IMPRESSION: Irregula rity involving the base of the proximal phalanx of the fifth digit with no defined fracture seen. Clinical correlation is needed. [employer] Certified Network Associate: PSCB Transcribe Date/Time: May 02 2021 11:49A Dictated by : MARTIN AMES MD This examination was interpreted and the report reviewed and electronically signed by: MARTIN AMES MD on May 02 2021 12:09PM [facility] DIV[facility] * * *Final Report* * * DATE OF EXAM: May 02 2021 9:35AM WOX 5337 - XR FOOT 3V AP/LAT/OBL RT / PROCEDURE REASON: multiple diagnoses * * * * Physician Interpretation * * * * History: Right foot contusion FINDINGS: AP, lateral, and oblique views of the right foot have been obtained. Included is AP view of the left foot. There is degenerative change of the first MTP joint. There is slight irregularity involving the base of the proximal phalanx of the fifth toe with small spurs noted with no definite fracture seen. Clinical correlation is needed. No bony destruction is seen. There are no gross soft tissue abnormalities. [facility]Y [facility] * * *Final Report* * * DATE OF EXAM: May 02 2021 9:35AM WOX 5337 - XR FOOT 3V AP/LAT/OBL RT / PROCEDURE REASON: multiple diagnoses * * * * Physician Interpretation * * * * History: Right foot contusion FINDINGS: AP, lateral, and oblique views of the right foot have been obtained. Included is AP view of the left foot. There is degenerative change of the first MTP joint. There is slight irregularity involving the base of the proximal phalanx of the fifth toe with small spurs noted with no definite fracture seen. Clinical correlation is needed. No bony destruction is seen. There are no gross soft tissue abnormalities. IMPRESSION IMPRESSION: Irregularity involving the base of the proximal phalanx of the fifth digit with no defined fracture seen. Clinical correlation is needed. [employer] Certified Network Associate: BALJIT Transcribe Date/Time: May 02 2021 11:49A Dictated by : MARTIN AMES MD This examination was interpreted and the report reviewed and electronically signed by: MARTIN AMES MD on May 02 2021 12:09PM EST [facility] Radiology Study observation (narrative) [facility] XR Foot - right AP and Later al and obliqueOrdered By: Ccf Provider on 05-02-2021 [facility] XR Cervical spine AP and Lat eral and obliqueon 01-17-2021 IMPRESSION: POSTOPERATIVE AND DEGENERATIVE CHANGES DESCRIBED ABOVE. ALIGNMENT ABNORMALITIES. ALL STABLE. [employer] Certified Network Associate: [email or web address] Transcribe Date/Time: Jan 17 2021 8:00A Dictated by : JEFFREY RICK MD This examination was interpreted and the report reviewed and electronically signed by: JEFFREY RICK MD on Jan 17 2021 8:03AM [facility] DIV[facility] * * *Final Report* * * DATE OF EXAM: Jan 16 2021 4:16PM WOX 5311 - XR CERVICAL 4V AP/LAT/OBL / PROCEDURE REASON: Neck pain * * * * Physician Interpretation * * * * Examination: XR CERVICAL 4V AP/LAT/OBL History: Neck pain Technique: XR CERVICAL 4V AP/LAT/OBL Comparison: 10/20/2018 RESULT: Anterior plate and screw device transfixes C3, C4 and C5. There is no evidence of hardware loosening. The right C5 screw is broken. Unchanged. Stable anterior position of C5 on C6 ,C6 on C7, and C7 on T1. No significant foraminal encroachment. Diffuse osteopenia. No acute fracture or prevertebral swelling Mild degenerative change and osteophytosis throughout. DIVISION OF RADIOLOGY Provider, Enoc [facility] - 01/17/2021 * * *Final Report* * * DATE OF EXAM: Jan 16 2021 4:16PM WOX 5311 - XR CERVICAL 4V AP/LAT/OBL / PROCEDURE REASON: Neck pain * * * * Physician Interpretation * * * * Examination: XR CERVICAL 4V AP/LAT/OBL History: Neck pain Technique: XR CERVICAL 4V AP/LAT/OBL Comparison: 10/20/2018 RESULT: Anterior plate and screw device transfixes C3, C4 and C5. There is no evidence of hardware loosening. The right C5 screw is broken. Unchanged. Stable anterior position of C5 on C6 ,C6 on C7, and C7 on T1. No significant foraminal encroachment. Diffuse osteopenia. No acute fracture or prevertebral swelling Mild degenerative change and osteophytosis throughout. IMPRESSION IMPRESSION: POSTOPERATIVE AND DEGENERATIVE CHANGES DESCRIBED ABOVE. ALIGNMENT ABNORMALITIES. ALL STABLE. [employer] Certified Network Associate: [employer] Transcribe Date/Time: Jan 17 2021 8:00A Dictated by : JEFFREY RICK MD This examination was interpreted and the report reviewed and electronically signed by: JEFFREY RICK MD on Jan 17 2021 8:03AM EST [facility] XR Cervical spine AP and Lat eral and obliqueOrdered By: Ccf Provider on 01-17-2021 [facility] XR Cervical spine AP and Lat eral and obliqueon 01-16-2021 Radiology Study observation (narrative) [facility] No Panel Informationon 06-05 IMPRESSION: No acute osseous abnormality identified. [employer] Certified Network Associate: [employer] Transcribe Date/Time: Jun 05 2020 5:30P Dictated by : STACY HEBERT MD This examination was interpreted and the report reviewed and electronically signed by: STACY HEBERT MD on Jun 05 2020 5:32PM EST DIVISION OF RADIOLOGY Radiology Study observation (narrative) [facility] No Panel InformationOrdered By: Ccf Provider on 06-05-2020 [facility] XR Ankle - left AP and Later al and obliqueon 06-05-2020 * * *Final Report* * * DATE OF EXAM: Jun 05 2020 5:29PM WOX 5298 - XR ANKLE 3V AP/LAT/OBL LT / PROCEDURE REASON: Foot injury, left, initial encounter * * * * Physician Interpretation * * * * Left ankle and foot radiographs HISTORY: 75 years old Clinical information: Foot injury, left, initial encounter Lateral left ankle pain following a rolling injury today (accession [id number]), Lateral left forefoot and midfoot pain after a rolling injury today. (accession [id number]) TECHNIQUE: Images: XR ANKLE 3V AP/LAT/OBL LT, XR FOOT 3V AP/LAT/OBL LT Comparison: June 05, 2020. Left ankle RESULT: No fracture or dislocation. Plantar calcaneal spur. Ankle mortise is congruent. No soft tissue abnormality. Left foot RESULT: Diffuse osteopenia. Hallux valgus deformity. Findings related to prior hallux valgus surgery. Narrowing of multiple interphalangeal joints. No fracture or dislocation. No soft tissue abnormality identified. DIVISION OF RADIOLOGY Provider, [facility] - 06/05/2020 * * *Final Report* * * DATE OF EXAM: Jun 05 2020 5:29PM WOX 5298 - XR ANKLE 3V AP/LAT/OBL LT / PROCEDURE REASON: Foot injury, left, initial encounter * * * * Physician Interpretation * * * * Left ankle and foot radiographs HISTORY: 75 years old Clinical information: Foot injury, left, initial encounter Lateral left ankle pain following a rolling injury today (accession [id number]), Lateral left forefoot and midfoot pain after a rolling injury today. (accession [id number]) TECHNIQUE: Images: XR ANKLE 3V AP/LAT/OBL LT, XR FOOT 3V AP/LAT/OBL LT Comparison: June 05, 2020. Left ankle RESULT: No fracture or dislocation. Plantar calcaneal spur. Ankle mortise is congruent. No soft tissue abnormality. Left foot RESULT: Diffuse osteopenia. Hallux valgus deformity. Findings related to prior hallux valgus surgery. Narrowing of multiple interphalangeal joints. No fracture or dislocation. No soft tissue abnormality identified. IMPRESSION IMPRESSION: No acute osseous abnormality identified. [employer] Certified Network Associate: PSCB Transcribe Date/Time: Jun 05 2020 5:30P Dictated by : STACY HEBERT MD This examination was interpreted and the report reviewed and electronically signed by: STACY HEBERT MD on Jun 05 2020 5:32PM EST [facility] XR Foot - left AP and Latera l and obliqueon 06-05-2020 * * *Final Report* * * DATE OF EXAM: Jun 05 2020 5:29PM WOX 5336 - XR FOOT 3V AP/LAT/OBL LT / PROCEDURE REASON: Foot injury, left, initial encounter * * * * Physician Interpretation * * * * Left ankle and foot radiographs HISTORY: 75 years old Clinical information: Foot injury, left, initial encounter Lateral left ankle pain following a rolling injury today (accession [id number]), Lateral left forefoot and midfoot pain after a rolling injury today. (accession [id number]) TECHNIQUE: Images: XR ANKLE 3V AP/LAT/OBL LT, XR FOOT 3V AP/LAT/OBL LT Comparison: June 05, 2020. Left ankle RESULT: No fracture or dislocation. Plantar calcaneal spur. Ankle mortise is congruent. No soft tissue abnormality. Left foot RESULT: Diffuse osteopenia. Hallux valgus deformity. Findings related to prior hallux valgus surgery. Narrowing of multiple interphalangeal joints. No fracture or dislocation. No soft tissue abnormality identified. DIVISION OF RADIOLOGY Provider, [facility] - 06/05/2020 * * *Final Report* * * DATE OF EXAM: Jun 05 2020 5:29PM WOX 5336 - XR FOOT 3V AP/LAT/OBL LT / PROCEDURE REASON: Foot injury, left, initial encounter * * * * Physician Interpretation * * * * Left ankle and foot radiographs HISTORY: 75 years old Clinical information: Foot injury, left, initial encounter Lateral left ankle pain following a rolling injury today (accession [id number]), Lateral left forefoot and midfoot pain after a rolling injury today. (accession [id number]) TECHNIQUE: Images: XR ANKLE 3V AP/LAT/OBL LT, XR FOOT 3V AP/LAT/OBL LT Comparison: June 05, 2020. Left ankle RESULT: No fracture or dislocation. Plantar calcaneal spur. Ankle mortise is congruent. No soft tissue abnormality. Left foot RESULT: Diffuse osteopenia. Hallux valgus deformity. Findings related to prior hallux valgus surgery. Narrowing of multiple interphalangeal joints. No fracture or dislocation. No soft tissue abnormality identified. IMPRESSION IMPRESSION: No acute osseous abnormality identified. [employer] Certified Network Associate: PSCB Transcribe Date/Time: Jun 05 2020 5:30P Dictated by : STACY HEBERT MD This examination was interpreted and the report reviewed and electronically signed by: STACY HEBERT MD on Jun 05 2020 5:32PM EST [facility] Influenza virus A and B and SARS-CoV-2 (COVID-19) Ag panel - Upper respiratory specim SARS-CoV-2 (COVID-19) RNA NANI+probe Ql (Resp) [facility] Work Phone: Vital Signs Date Time Vital Sign Value Performing Clinician Facility 10-22-2024 08:19-0400 Body mass index (BMI) [Ratio] 26.05 kg/m2 [employer] Work Phone: [facility] 10-22-2024 08:19-0400 Body temperature 97.11 [degF] [employer] COORDINATOR[employer] Work Phone: [facility] 10-22-2024 08:19-0400 Body weight 62.6 kg [employer]ATIONS COORDINATOR[employer] Work Phone: [facility] 10-22-2024 08:19-0400 Diastolic blood pressure 84 mm[Hg] [employer] COORDINATOR[employer] Work Phone: [facility] 10-22-2024 08:19-0400 Heart rate 76 /min [employer]ATIONS COORDINATOR[employer] Work Phone: [facility] 10-22-2024 08:19-0400 Respiratory rate 16 /min Dianna Older [employer]NI RELATIONS COORDINATOR[employer] Work Phone: [facility] 10-22-2024 08:19-0400 SaO2% (BldA) [Mass fraction] 96 % Dianna Older [employer] RELATIONS COORDINATOR[employer] Work Phone: [facility] 10-22-2024 08:19-0400 Systolic blood pressure 128 mm[Hg] Dianna Older [employer] RELATIONS COORDINATOR[employer] Work Phone: [facility] 10-15-2024 10:29-0400 Body height 152.[address] Minerva Shaver MD Work Phone: [facility] 10-15-2024 10:29-0400 Body mass index (BMI) [Ratio] 26.4 kg/m2 Dr. Minerva Shaver MD Work Phone: [facility] 10-15-2024 10:29-0400 Body weight 61.[address] Minerva Shaver MD Work Phone: [facility] 10-08-2024 12:22-0400 Body temperature 98.1 [degF] Anuel Cortes MD Work Phone: [facility] 10-08-2024 12:22-0400 Diastolic blood pressure 73 mm[Hg] nAuel Cortes MD Work Phone: [facility] 10-08-2024 12:22-0400 Heart rate 89 /min Anuel Cortes MD Work Phone: [facility] 10-08-2024 12:22-0400 Respiratory rate 18 /min Anuel Cortes MD Work Phone: [facility] 10-08-2024 12:22-0400 SaO2% (BldA) [Mass fraction] 96 % Anuel Cortes MD Work Phone: [facility] 10-08-2024 12:22-0400 Systolic blood pressure 116 mm[Hg] Anuel Cortes MD Work Phone: [facility] 10-08-2024 06:01-0400 Body mass index (BMI) [Ratio] 26.09 kg/m2 Anuel Cortes MD Work Phone: [facility] 10-08-2024 06:01-0400 Body weight 62.64 kg Anuel Cortes MD Work Phone: [facility] Comment on above: standing 10-01-2024 20:00-0400 Body height 154.9 cm Anuel Cortes MD Work Phone: [facility] 09-29-2024 12:27-0400 Body weight 58.[address] Minerva Shaver MD Work Phone: [facility] 09-29-2024 12:26-0400 Body mass index (BMI) [Ratio] 25.4 kg/m2 Dr. Minerva Shaver MD Work Phone: [facility] 08-17-2024 11:00-0400 Body height 154.[address] Minerva Shaver MD Work Phone: [facility] 08-17-2024 11:00-0400 Body mass index (BMI) [Ratio] 26.1 kg/m2 Dr. Minerva Shaver MD Work Phone: [facility] 08-17-2024 11:00-0400 Body weight 62.[address] Minerva Shaver MD Work Phone: [facility] 08-11-2024 08:43-0400 Diastolic blood pressure 78 mm[Hg] Dianna Older [employer] COORDINATOR[employer] Work Phone: [facility] 08-11-2024 08:43-0400 Heart rate 74 /min Dianna Older [employer] CO[employer] Work Phone: [facility] 08-11-2024 08:43-0400 Respiratory rate 16 /min Dianna Older [employer]ATIONS COORDINATOR[employer] Work Phone: [facility] 08-11-2024 08:43-0400 SaO2% (BldA) [Mass fraction] 96 % Dianna Older [employer]ATIONS COORDINATOR[employer] Work Phone: [facility] 08-11-2024 08:43-0400 Systolic blood pressure 138 mm[Hg] Dianna Older [employer]ATIONS COORDINATOR[employer] Work Phone: [facility] 08-01-2024 00:00-0400 Body temperature 98 [degF] Dr. Minerva Shaver MD Work Phone: 9(420)401-294062 [place] [address] 08-01-2024 00:00-0400 Diastolic blood pressure 61 mm[Hg] Dr. Minerva Shaver MD Work Phone: 6(374)690-927146 [place] [address] 08-01-2024 00:00-0400 Heart rate 64 /min Dr. Minerva Shaver MD Work Phone: 9(560)837-962246 [place] [address] 08-01-2024 00:00-0400 Respiratory rate 13 /min Dr. Minerva Shaver MD Work Phone: 3(934)691-017562 [place] [address] 08-01-2024 00:00-0400 SaO2% (BldA) [Mass fraction] 97 % Dr. Minerva Shaver MD Work Phone: 6(230)260-047546 [place] [address] 08-01-2024 00:00-0400 Systolic blood pressure 136 mm[Hg] Dr. Minerva Shaver MD Work Phone: 1(541)849-286962 [place] [address] 07-31-2024 22:30-0400 Body height 154.[address] Minerva Shaver MD Work Phone: 3(823)220-599462 [place] [address] 07-31-2024 22:30-0400 Body mass index (BMI) [Ratio] 26 kg/m2 Dr. Minerva Shaver MD Work Phone: 4(348)468-356546 [place] [address] 07-31-2024 22:30-0400 Body weight 62.[address] Minerva Shaver MD Work Phone: 6(229)344-057946 [place] [address] 07-27-2024 09:25-0400 Body mass index (BMI) [Ratio] 25 kg/m2 Dr. Minerva Shaver MD Work Phone: 9(733)186-730762 [place] [address] 07-27-2024 09:25-0400 Body weight 62.[address] Minerva Shaver MD Work Phone: [facility] 07-27-2024 09:25-0400 Diastolic blood pressure 73 mm[Hg] Dr. Minerva Shaver MD Work Phone: [facility] 07-27-2024 09:25-0400 Heart rate 61 /min Dr. Minerva Shaver MD Work Phone: [facility] 07-27-2024 09:25-0400 Respiratory rate 18 /min Dr. Minerva Shaver MD Work Phone: [facility] 07-27-2024 09:25-0400 SaO2% (BldA) [Mass fraction] 6 % Dr. Minerva Shaver MD Work Phone: [facility] 07-27-2024 09:25-0400 Systolic blood pressure 121 mm[Hg] Dr. Minerva Shaver MD Work Phone: [facility] 07-22-2024 09:39-0400 Body mass index (BMI) [Ratio] 25.68 kg/m2 Dianna Older [employer] Work Phone: [facility] 07-22-2024 09:39-0400 Body temperature 97.59 [degF] Dianna Older [employer] CO[employer] Work Phone: [facility] 07-22-2024 09:39-0400 Body weight 61.69 kg Dianna Older [employer] CO[employer] Work Phone: [facility] 07-22-2024 09:39-0400 Diastolic blood pressure 74 mm[Hg] Dianna Older [employer] CO[employer] Work Phone: [facility] 07-22-2024 09:39-0400 Heart rate 64 /min Dianna Older [employer] CO[employer] Work Phone: [facility] 07-22-2024 09:39-0400 Respiratory rate 16 /min Dianna Older [employer]ATIONS COORDIN[employer] Work Phone: [facility] 07-22-2024 09:39-0400 SaO2% (BldA) [Mass fraction] 97 % Dianna Older [employer] CO[employer] Work Phone: [facility] 07-22-2024 09:39-0400 Systolic blood pressure 132 mm[Hg] Dianna Older [employer] CO[employer] Work Phone: [facility] 07-15-2024 13:30-0500 Body mass index (BMI) [Ratio] 25.3 kg/m2 Dianna Older [employer] CO[employer] Work Phone: [facility] 07-15-2024 13:30-0500 Body temperature 97.7 [degF] Dianna Older [employer] CO[employer] Work Phone: [facility] 07-15-2024 13:30-0500 Body weight 60.78 kg Dianna Older [employer] COORD[employer]ATOR[employer] Work Phone: [facility] 07-15-2024 13:30-0500 Diastolic blood pressure 78 mm[Hg] Dianna Older [employer] CO[employer] Work Phone: [facility] 07-15-2024 13:30-0500 Heart rate 76 /min Dianna Older [employer] CO[employer] Work Phone: [facility] 07-15-2024 13:30-0500 Respiratory rate 16 /min Dianna Older [employer] CO[employer] Work Phone: [facility] 07-15-2024 13:30-0500 SaO2% (BldA) [Mass fraction] 95 % Dianna Older [employer] CO[employer] Work Phone: [facility] 07-15-2024 13:30-0500 Systolic blood pressure 124 mm[Hg] Dianna Older [employer] CO[employer]IN[employer] Work Phone: [facility] 07-08-2024 09:39-0500 Body mass index (BMI) [Ratio] 25.11 kg/m2 Dianna Older [employer] CO[employer] Work Phone: [facility] 07-08-2024 09:39-0500 Body temperature 97.3 [degF] Dianna Older [employer] CO[employer] Work Phone: [facility] 07-08-2024 09:39-0500 Body weight 60.33 kg Dianna Older [employer]ATIONS CO[employer]IN[employer] Work Phone: [facility] 07-08-2024 09:39-0500 Diastolic blood pressure 66 mm[Hg] Dianna Older [employer] CO[employer] Work Phone: [facility] 07-08-2024 09:39-0500 Heart rate 80 /min Dianna Older [employer] CO[employer] Work Phone: [facility] 07-08-2024 09:39-0500 Respiratory rate 16 /min Dianna Older [employer] CO[employer] Work Phone: [facility] 07-08-2024 09:39-0500 SaO2% (BldA) [Mass fraction] 94 % Dianna Older [employer] CO[employer] Work Phone: [facility] 07-08-2024 09:39-0500 Systolic blood pressure 140 mm[Hg] Dianna Older [employer] CO[employer] Work Phone: [facility] 07-05-2024 15:23-0500 Body mass index (BMI) [Ratio] 25.51 kg/m2 Nadir Clutter PA-C Work Phone: [facility] 07-05-2024 15:23-0500 Body temperature 99.3 [degF] Nadir Clutter PA-C Work Phone: [facility] 07-05-2024 15:23-0500 Body weight 61.3 kg Nadir Clutter PA-C Work Phone: [facility] 07-05-2024 15:23-0500 Diastolic blood pressure 70 mm[Hg] Nadir Clutter PA-C Work Phone: [facility] 07-05-2024 15:23-0500 Heart rate 88 /min Nadir Clutter PA-C Work Phone: [facility] 07-05-2024 15:23-0500 Respiratory rate 18 /min Nadir Clutter PA-C Work Phone: [facility] 07-05-2024 15:23-0500 SaO2% (BldA) [Mass fraction] 92 % Nadir Catarina PA-C Work Phone: [facility] 07-05-2024 15:23-0500 Systolic blood pressure 146 mm[Hg] Nadir Pickard PA-C Work Phone: [facility] 06-17-2024 09:58-0500 Body mass index (BMI) [Ratio] 24.73 kg/m2 Laith Montes MD Work Phone: [facility] 06-17-2024 09:58-0500 Body weight 59.42 kg Laith Montes MD Work Phone: [facility] 06-17-2024 09:58-0500 Diastolic blood pressure 70 mm[Hg] Laith Montes MD Work Phone: [facility] 06-17-2024 09:58-0500 Heart rate 62 /min Laith Montes MD Work Phone: [facility] 06-17-2024 09:58-0500 Respiratory rate 16 /min Laith Montes MD Work Phone: [facility] 06-17-2024 09:58-0500 SaO2% (BldA) [Mass fraction] 95 % Laith Montes MD Work Phone: [facility] 06-17-2024 09:58-0500 Systolic blood pressure 138 mm[Hg] Laith Montes MD Work Phone: [facility] 05-27-2024 07:54-0500 Body mass index (BMI) [Ratio] 24.92 kg/m2 Minerva Shaver MD Work Phone: [facility] 05-27-2024 07:54-0500 Body weight 59.88 kg Minerva Shaver MD Work Phone: [facility] 05-26-2024 00:40-0500 Body temperature 98.1 [degF] Dr. Minerva Shaver MD Work Phone: [facility] 05-26-2024 00:40-0500 Diastolic blood pressure 80 mm[Hg] Dr. Minerva Shaver MD Work Phone: 2(095)699-926946 [place] [address] 05-26-2024 00:40-0500 Heart rate 71 /min Dr. Minerva Shaver MD Work Phone: 9(899)916-283446 [place] [address] 05-26-2024 00:40-0500 Respiratory rate 16 /min Dr. Minerva Shaver MD Work Phone: 7(080)904-746446 [place] [address] 05-26-2024 00:40-0500 SaO2% (BldA) [Mass fraction] 99 % Dr. Minerva Shaver MD Work Phone: 2(011)644-700546 [place] [address] 05-26-2024 00:40-0500 Systolic blood pressure 144 mm[Hg] Dr. Minerva Shaver MD Work Phone: 8(438)868-745746 [place] [address] 05-26-2024 00:09-0500 Inhaled oxygen flow rate 2 L/min Dr. Minerva Shaver MD Work Phone: 6(875)796-806646 [place] [address] 05-25-2024 23:20-0500 Body mass index (BMI) [Ratio] 24.2 kg/m2 Dr. Minerva Shaver MD Work Phone: 1(790)267-565246 [place] [address] 05-25-2024 23:20-0500 Body weight [address] Minerva Shaver MD Work Phone: 3(739)604-296046 [place] [address] 04-28-2024 15:55-0500 Body mass index (BMI) [Ratio] 24.5 kg/m2 Dr. Minerva Shaver MD Work Phone: 4(619)905-643046 [place] [address] 04-28-2024 15:55-0500 Body weight 58.[address] Minerva Shaver MD Work Phone: 1(127)508-711646 [place] [address] 04-28-2024 15:55-0500 Diastolic blood pressure 79 mm[Hg] Dr. Minerva Shaver MD Work Phone: 1(311)160-007346 [place] [address] 04-28-2024 15:55-0500 Heart rate 71 /min Dr. Minerva Shaver MD Work Phone: 5(694)088-833146 [place] [address] 04-28-2024 15:55-0500 Respiratory rate 16 /min Dr. Minerva Shaver MD Work Phone: [facility] 04-28-2024 15:55-0500 Systolic blood pressure 135 mm[Hg] Dr. Minerva Shaver MD Work Phone: [facility] 04-22-2024 14:05-0500 Diastolic blood pressure 95 mm[Hg] Alli Hernandez MD Work Phone: [facility] 04-22-2024 14:05-0500 Heart rate 82 /min Alli Hernandez MD Work Phone: 8(957)362-490830 [address] 04-22-2024 14:05-0500 Respiratory rate 22 /min Alli Hernandez MD Work Phone: 3(431)344-195530 [address] 04-22-2024 14:05-0500 Systolic blood pressure 159 mm[Hg] Alli Hernandez MD Work Phone: 9(781)915-362730 [address] 04-22-2024 14:00-0500 SaO2% (BldA) [Mass fraction] 96 % Alli Hernandez MD Work Phone: 1(783)219-278630 [address] 04-22-2024 10:45-0500 Body temperature 97 [degF] Alli Hernandez MD Work Phone: 5(586)983-820130 [address] 04-22-2024 06:32-0500 Body height 154.9 cm Alli Hernandez MD Work Phone: 1(938)757-409030 [address] 04-22-2024 06:32-0500 Body mass index (BMI) [Ratio] 24.37 kg/m2 Alli Hernandez MD Work Phone: 6(322)092-867630 [address] 04-22-2024 06:32-0500 Body weight 58.51 kg Alli Hernandez MD Work Phone: 2(015)836-139230 [address] 04-21-2024 15:51-0500 Body height 154.9 cm Alli Hernandez MD Work Phone: [facility] 04-21-2024 15:51-0500 Diastolic blood pressure 80 mm[Hg] Alli Hernandez MD Work Phone: [facility] 04-21-2024 15:51-0500 Heart rate 130 /min Alli Hernandez MD Work Phone: [facility] 04-21-2024 15:51-0500 Systolic blood pressure 114 mm[Hg] Alli Hernandez MD Work Phone: [facility] 04-19-2024 08:52-0500 Body mass index (BMI) [Ratio] 24.7 kg/m2 Dr. Minerva Shaver MD Work Phone: 8(087)551-386362 [place] [address] 04-19-2024 08:52-0500 Body weight 59.[address] Minerva Shaver MD Work Phone: 5(071)213-260562 [place] [address] 04-19-2024 08:52-0500 Diastolic blood pressure 69 mm[Hg] Dr. Minerva Shaver MD Work Phone: 6(422)753-915446 [place] [address] 04-19-2024 08:52-0500 Heart rate 62 /min Dr. Minerva Shaver MD Work Phone: 6(495)107-296762 [place] [address] 04-19-2024 08:52-0500 Respiratory rate 18 /min Dr. Minerva Shaver MD Work Phone: [facility] 04-19-2024 08:52-0500 Systolic blood pressure 121 mm[Hg] Dr. Minerva Shaver MD Work Phone: [facility] 04-17-2024 08:06-0500 Body temperature 97.9 [degF] Toña Persaud MD Work Phone: [facility] 04-17-2024 08:06-0500 Diastolic blood pressure 63 mm[Hg] Toña Persaud MD Work Phone: [facility] 04-17-2024 08:06-0500 Heart rate 57 /min Toña Persaud MD Work Phone: [facility] 04-17-2024 08:06-0500 Respiratory rate 16 /min Toña Persaud MD Work Phone: [facility] 04-17-2024 08:06-0500 SaO2% (BldA) [Mass fraction] 96 % Toña Persaud MD Work Phone: [facility] 04-17-2024 08:06-0500 Systolic blood pressure 142 mm[Hg] Toña Persaud MD Work Phone: [facility] 04-17-2024 04:55-0500 Body mass index (BMI) [Ratio] 24.07 kg/m2 Toña Persaud MD Work Phone: [facility] 04-17-2024 04:55-0500 Body weight 57.74 kg Toña Persaud MD Work Phone: [facility] 04-14-2024 09:13-0500 Body height 154.9 cm Toña Persaud MD Work Phone: [facility] 04-12-2024 20:00-0500 Heart rate 123 /min Dr. Minerva Shaver MD Work Phone: [facility] 04-12-2024 20:00-0500 Respiratory rate 18 /min Dr. Minerva Shaver MD Work Phone: [facility] 04-12-2024 20:00-0500 SaO2% (BldA) [Mass fraction] 91 % Dr. Minerva Shaver MD Work Phone: [facility] 04-12-2024 19:45-0500 Diastolic blood pressure 82 mm[Hg] Dr. Minerva Shaver MD Work Phone: [facility] 04-12-2024 19:45-0500 Systolic blood pressure 112 mm[Hg] Dr. Minerva Shaver MD Work Phone: [facility] 04-12-2024 19:27-0500 Body temperature 98.4 [degF] Dr. Minerva Shaver MD Work Phone: [facility] 04-12-2024 10:54-0500 Body mass index (BMI) [Ratio] 25.1 kg/m2 Dr. Minerva Shaver MD Work Phone: [facility] 04-12-2024 10:54-0500 Body weight 60.[address] Minerva Shaver MD Work Phone: 0(433)219-797462 [place] [address] 04-02-2024 10:00-0500 Body height 155 cm Minerva Shaver MD Work Phone: [facility] 04-02-2024 10:00-0500 Body mass index (BMI) [Ratio] 25.06 kg/m2 Minerva Shaver MD Work Phone: [facility] 04-02-2024 10:00-0500 Body weight 60.2 kg Minerva Shaver MD Work Phone: [facility] 04-02-2024 10:00-0500 Diastolic blood pressure 62 mm[Hg] Minerva Shaver MD Work Phone: [facility] 04-02-2024 10:00-0500 Heart rate 96 /min Minerva Shaver MD Work Phone: [facility] 04-02-2024 10:00-0500 SaO2% (BldA) [Mass fraction] 94 % Minerva Shaver MD Work Phone: [facility] 04-02-2024 10:00-0500 Systolic blood pressure 118 mm[Hg] Minerva Shaver MD Work Phone: [facility] 01-01-2024 10:43-0400 Body mass index (BMI) [Ratio] 25.52 kg/m2 Dianna Older [employer] Work Phone: [facility] 01-01-2024 10:43-0400 Body weight 58.97 kg Dianna Older [employer] CO[employer] Work Phone: [facility] 01-01-2024 10:43-0400 Diastolic blood pressure 80 mm[Hg] Dianna Older [employer] CO[employer] Work Phone: [facility] 01-01-2024 10:43-0400 Heart rate 108 /min Dianna Older [employer] CO[employer] Work Phone: [facility] 01-01-2024 10:43-0400 Respiratory rate 16 /min Dianna Older [employer] CO[employer] Work Phone: [facility] 01-01-2024 10:43-0400 SaO2% (BldA) [Mass fraction] 96 % Dianna Older [employer] CO[employer]INATOR[employer] Work Phone: [facility] 01-01-2024 10:43-0400 Systolic blood pressure 104 mm[Hg] Dianna Older [employer] CO[employer] Work Phone: [facility] 12-15-2023 09:22-0400 Body mass index (BMI) [Ratio] 26.11 kg/m2 Laith Montes MD Work Phone: [facility] 12-15-2023 09:22-0400 Body weight 60.33 kg Laith Montes MD Work Phone: [facility] 12-15-2023 09:22-0400 Diastolic blood pressure 64 mm[Hg] Laith Montes MD Work Phone: [facility] 12-15-2023 09:22-0400 Heart rate 102 /min Laith Montes MD Work Phone: [facility] 12-15-2023 09:22-0400 Respiratory rate 12 /min Laith Montes MD Work Phone: [facility] 12-15-2023 09:22-0400 SaO2% (BldA) [Mass fraction] 97 % Laith Montes MD Work Phone: [facility] 12-15-2023 09:22-0400 Systolic blood pressure 100 mm[Hg] Laith Montes MD Work Phone: [facility] 12-15-2023 08:59-0400 Body height 152 cm Pulm Wstr Work Phone: [facility] 12-15-2023 08:59-0400 Body mass index (BMI) [Ratio] 26.11 kg/m2 Pulm Wstr Work Phone: [facility] 12-15-2023 08:59-0400 Body weight 60.33 kg Pulm Wstr Work Phone: [facility] 12-15-2023 08:59-0400 Heart rate 102 /min Pulm Wstr Work Phone: [facility] 12-15-2023 08:59-0400 Respiratory rate 12 /min Pulm Wstr Work Phone: [facility] 12-15-2023 08:59-0400 SaO2% (BldA) [Mass fraction] 97 % Pulm Wstr Work Phone: [facility] 09-29-2023 12:05-0400 Heart rate 99 /min Dianna Older [employer] CO[employer]ATOR[employer] Work Phone: [facility] 09-29-2023 11:43-0400 Body height 154.9 cm Dianna Older [employer]ATIONS COORDINATOR.[employer] Work Phone: [facility] 09-29-2023 11:43-0400 Body mass index (BMI) [Ratio] 24.75 kg/m2 Dianna Older [employer] CO[employer]INATOR.[employer] Work Phone: [facility] 09-29-2023 11:43-0400 Body temperature 96.01 [degF] Dianna Older [employer] CO[employer]ATOR.[employer] Work Phone: [facility] 09-29-2023 11:43-0400 Body weight 59.42 kg Dianna Older [employer] CO[employer] Work Phone: [facility] 09-29-2023 11:43-0400 Diastolic blood pressure 70 mm[Hg] Dianna Older [employer] CO[employer]ATOR.[employer] Work Phone: [facility] 09-29-2023 11:43-0400 Respiratory rate 12 /min Dianna Older [employer] CO[employer] Work Phone: [facility] 09-29-2023 11:43-0400 SaO2% (BldA) [Mass fraction] 98 % Dianna Older [employer] CO[employer]ATOR.[employer] Work Phone: [facility] 09-29-2023 11:43-0400 Systolic blood pressure 124 mm[Hg] Dianna Older [employer] CO[employer]ATOR[employer] Work Phone: [facility] 09-05-2023 18:48-0400 Body temperature 97.9 [degF] Dr. Minerva Shaver Work Phone: [facility] 09-05-2023 18:48-0400 Diastolic blood pressure 88 mm[Hg] Dr. Minerva Shaver Work Phone: [facility] 09-05-2023 18:48-0400 Heart rate 90 /min Dr. Minerva Shaver Work Phone: [facility] 09-05-2023 18:48-0400 Respiratory rate 14 /min Dr. Minerva Shaver Work Phone: [facility] 09-05-2023 18:48-0400 SaO2% (BldA) [Mass fraction] 96 % Dr. Minerva Shaver Work Phone: [facility] 09-05-2023 18:48-0400 Systolic blood pressure 140 mm[Hg] Dr. Minerva Shaver Work Phone: [facility] 09-05-2023 16:48-0400 Body height 155.[address] Minerva Shaver Work Phone: [facility] 09-05-2023 11:00-0400 Body mass index (BMI) [Ratio] 24.94 kg/m2 Katheryn Stokes MD Work Phone: [facility] 09-05-2023 11:00-0400 Body weight 59.88 kg Katheryn Stokes MD Work Phone: [facility] 09-05-2023 11:00-0400 Diastolic blood pressure 80 mm[Hg] Katheryn Stokes MD Work Phone: [facility] 09-05-2023 11:00-0400 Heart rate 64 /min Katheryn Stokes MD Work Phone: [facility] 09-05-2023 11:00-0400 SaO2% (BldA) [Mass fraction] 95 % Katheryn Stokes MD Work Phone: [facility] 09-05-2023 11:00-0400 Systolic blood pressure 126 mm[Hg] Katheryn Stokes MD Work Phone: [facility] 08-18-2023 12:30-0400 Body temperature 96.8 [degF] Katheryn Stokes MD Work Phone: [facility] 08-18-2023 12:30-0400 Diastolic blood pressure 70 mm[Hg] Katheryn Stokes MD Work Phone: [facility] 08-18-2023 12:30-0400 Heart rate 51 /min Katheryn Stokes MD Work Phone: [facility] 08-18-2023 12:30-0400 Respiratory rate 17 /min Katheryn Stokes MD Work Phone: [facility] 08-18-2023 12:30-0400 SaO2% (BldA) [Mass fraction] 96 % Katheryn Stokes MD Work Phone: [facility] 08-18-2023 12:30-0400 Systolic blood pressure 120 mm[Hg] Katheryn Stokes MD Work Phone: [facility] 08-11-2023 10:44-0400 Body mass index (BMI) [Ratio] 25 kg/m2 Dr. Minerva Shaver Work Phone: [facility] 08-11-2023 10:44-0400 Body weight 60.[address] Minerva Shaver Work Phone: [facility] 08-11-2023 10:44-0400 Diastolic blood pressure 78 mm[Hg] Dr. Minerva Shaver Work Phone: 9(652)314-940062 [place] [address] 08-11-2023 10:44-0400 Heart rate 92 /min Dr. Minerva Shaver Work Phone: 0(294)019-234446 [place] [address] 08-11-2023 10:44-0400 Respiratory rate 16 /min Dr. Minerva Shaver Work Phone: 1(329)181-925346 [place] [address] 08-11-2023 10:44-0400 Systolic blood pressure 121 mm[Hg] Dr. Minerva Shaver Work Phone: 3(873)892-090046 [place] [address] 08-05-2023 08:22-0400 Body mass index (BMI) [Ratio] 25.3 kg/m2 Dr. Minerva Shaver Work Phone: 5(750)110-714746 [place] [address] 08-05-2023 08:22-0400 Body weight 60.[address] Minerva Shaver Work Phone: 3(928)752-647646 [place] [address] 07-04-2023 11:17-0500 Body height 154.[address] Minerva Shaver Work Phone: 6(544)764-966746 [place] [address] 07-04-2023 11:17-0500 Body weight 83.[address] Minerva Shaver Work Phone: 7(042)953-287546 [place] [address] 07-03-2023 08:16-0500 Body mass index (BMI) [Ratio] 34.9 kg/m2 Dr. Minerva Shaver Work Phone: 8(881)968-076446 [place] [address] 06-30-2023 11:34-0500 Diastolic blood pressure 78 mm[Hg] Dianna Older [employer] CO[employer]ATOR.[employer] Work Phone: [facility] 06-30-2023 11:34-0500 Systolic blood pressure 128 mm[Hg] Dianna Older [employer] COORDINATOR.[employer] Work Phone: [facility] 03-31-2023 11:39-0500 Body weight 61.24 kg Dianna Older [employer]ATIONS COORDINATOR.[employer] Work Phone: [facility] 03-31-2023 11:39-0500 Diastolic blood pressure 60 mm[Hg] Dianna Older [employer] CO[employer] Work Phone: [facility] 03-31-2023 11:39-0500 Heart rate 54 /min Dianna Older [employer]ATIONS COORDINATOR.[employer] Work Phone: [facility] 03-31-2023 11:39-0500 Respiratory rate 16 /min Dianna Older [employer]ATIONS COORDINATOR.[employer] Work Phone: [facility] 03-31-2023 11:39-0500 SaO2% (BldA) [Mass fraction] 94 % Dianna Older [employer] COORDINATOR.[employer] Work Phone: [facility] 03-31-2023 11:39-0500 Systolic blood pressure 118 mm[Hg] Dianna Older [employer]ATIONS COORDINATOR.[employer] Work Phone: [facility] 03-04-2023 11:59-0400 Body height 157.5 cm Davin Denbow PA-C Work Phone: [facility] 03-04-2023 11:59-0400 Body temperature 97.81 [degF] Davin Denbow PA-C Work Phone: [facility] 03-04-2023 11:59-0400 Body weight 63.96 kg Davin Denbow PA-C Work Phone: [facility] 03-04-2023 11:59-0400 Diastolic blood pressure 70 mm[Hg] Davin Denbow PA-C Work Phone: [facility] 03-04-2023 11:59-0400 Heart rate 61 /min Davin Denbow PA-C Work Phone: [facility] 03-04-2023 11:59-0400 Respiratory rate 12 /min Davin Denbow PA-C Work Phone: [facility] 03-04-2023 11:59-0400 SaO2% (BldA) [Mass fraction] 96 % Davin Denbow PA-C Work Phone: [facility] 03-04-2023 11:59-0400 Systolic blood pressure 138 mm[Hg] Davin Denbow PA-C Work Phone: [facility] 02-10-2023 13:26-0400 Body weight 62.6 kg Dianna Older [employer] CO[employer]INATOR.[employer] Work Phone: [facility] 02-10-2023 13:26-0400 Diastolic blood pressure 78 mm[Hg] Dianna Older [employer]ATIONS COORDINATOR.[employer] Work Phone: [facility] 02-10-2023 13:26-0400 Heart rate 63 /min Dianna Older [employer] RELATIONS COORDINATOR.[employer] Work Phone: [facility] 02-10-2023 13:26-0400 Respiratory rate 16 /min Dianna Older [employer]ATIONS COORDINATOR.[employer] Work Phone: [facility] 02-10-2023 13:26-0400 SaO2% (BldA) [Mass fraction] 96 % Dianna Older [employer] RELATIONS COORDINATOR.[employer] Work Phone: [facility] 02-10-2023 13:26-0400 Systolic blood pressure 146 mm[Hg] Older [employer]ATIONS COORDINATOR.[employer] Work Phone: [facility] 02-04-2023 09:50-0400 Body height 154.[address] Minerva Shaver Work Phone: [facility] 02-04-2023 09:48-0400 Body mass index (BMI) [Ratio] 25.9 kg/m2 Dr. Minerva Shaver Work Phone: [facility] 02-04-2023 09:48-0400 Body weight 62.[address] Minerva Shaver Work Phone: [facility] 02-04-2023 09:48-0400 Diastolic blood pressure 72 mm[Hg] Dr. Minerva Shaver Work Phone: [facility] 02-04-2023 09:48-0400 Heart rate 51 /min Dr. Minerva Shaver Work Phone: [facility] 02-04-2023 09:48-0400 Respiratory rate 18 /min Dr. Minerva Shaver Work Phone: [facility] 02-04-2023 09:48-0400 SaO2% (BldA) [Mass fraction] 96 % Dr. Minerva Shaver Work Phone: [facility] 02-04-2023 09:48-0400 Systolic blood pressure 112 mm[Hg] Dr. Minerva Shaver Work Phone: [facility] 01-28-2023 19:18-0400 Body height 157.5 cm Юлия Oden MD Work Phone: [facility] 01-28-2023 19:18-0400 Body weight 62.14 kg Юлия Oden MD Work Phone: [facility] 01-28-2023 19:18-0400 Diastolic blood pressure 78 mm[Hg] Юлия Oden MD Work Phone: [facility] 01-28-2023 19:18-0400 Heart rate 58 /min Юлия Oden MD Work Phone: [facility] 01-28-2023 19:18-0400 Respiratory rate 16 /min Юлия Oden MD Work Phone: [facility] 01-28-2023 19:18-0400 SaO2% (BldA) [Mass fraction] 94 % Юлия Oden MD Work Phone: [facility] 01-28-2023 19:18-0400 Systolic blood pressure 130 mm[Hg] Юлия Oden MD Work Phone: [facility] 01-27-2023 12:39-0400 Body height 152 cm Laith Montes MD Work Phone: [facility] 01-27-2023 12:39-0400 Body weight 61.69 kg Laith Montes MD Work Phone: [facility] 01-27-2023 12:39-0400 Diastolic blood pressure 78 mm[Hg] Laith Montes MD Work Phone: [facility] 01-27-2023 12:39-0400 Heart rate 58 /min Laith Montes MD Work Phone: [facility] 01-27-2023 12:39-0400 Respiratory rate 14 /min Laith Montes MD Work Phone: [facility] 01-27-2023 12:39-0400 SaO2% (BldA) [Mass fraction] 98 % Laith Montes MD Work Phone: [facility] 01-27-2023 12:39-0400 Systolic blood pressure 130 mm[Hg] Laith Montes MD Work Phone: [facility] 01-23-2023 14:06-0400 Diastolic blood pressure 62 mm[Hg] Dianna Older [employer] CO[employer] Work Phone: [facility] 01-23-2023 14:06-0400 Systolic blood pressure 136 mm[Hg] Dianna Older [employer] COORDIN[employer] Work Phone: [facility] 01-23-2023 14:05-0400 Body temperature 97.2 [degF] Dianna Older [employer] CO[employer]INATOR.[employer] Work Phone: [facility] 01-23-2023 14:05-0400 Body weight 62.14 kg Dianna Older [employer] COORDINATOR.[employer] Work Phone: [facility] 01-23-2023 14:05-0400 Heart rate 49 /min Dianna Older [employer]ATIONS COORDINATOR.[employer] Work Phone: [facility] 01-23-2023 14:05-0400 Respiratory rate 16 /min Dianna Older [employer] COORDINATOR.[employer] Work Phone: [facility] 01-23-2023 14:05-0400 SaO2% (BldA) [Mass fraction] 92 % Dianna Older [employer]ATIONS COORDINATOR.[employer] Work Phone: [facility] 01-10-2023 14:45-0400 Body height 157.5 cm Dianna Older [employer] COORDINATOR.[employer] Work Phone: [facility] 01-10-2023 14:45-0400 Body weight 63.05 kg Dianna Older [employer] CO[employer]ATOR.[employer] Work Phone: [facility] 01-10-2023 14:45-0400 Diastolic blood pressure 62 mm[Hg] Dianna Older [employer] COORDINATOR.[employer] Work Phone: [facility] 01-10-2023 14:45-0400 Heart rate 102 /min Dianna Older [employer] COORDINATOR.[employer] Work Phone: [facility] 01-10-2023 14:45-0400 Respiratory rate 14 /min Dianna Older [employer] COORDINATOR.[employer] Work Phone: [facility] 01-10-2023 14:45-0400 SaO2% (BldA) [Mass fraction] 95 % Dianna Older [employer]ATIONS COORDINATOR.[employer] Work Phone: [facility] 01-10-2023 14:45-0400 Systolic blood pressure 130 mm[Hg] Dianna Older [employer] CO[employer]INATOR.[employer] Work Phone: [facility] 01-03-2023 14:31-0400 Body height 157.5 cm Dianna Older [employer]ATIONS COORDINATOR.[employer] Work Phone: [facility] 01-03-2023 14:31-0400 Body weight 62.14 kg Dianna Older [employer] COORDINATOR.[employer] Work Phone: [facility] 01-03-2023 14:31-0400 Diastolic blood pressure 68 mm[Hg] Dianna Older [employer] COORDINATOR.[employer] Work Phone: [facility] 01-03-2023 14:31-0400 Heart rate 69 /min Dianna Older [employer] COORDINATOR.[employer] Work Phone: [facility] 01-03-2023 14:31-0400 Respiratory rate 18 /min Dianna Older [employer] COORDIN[employer] Work Phone: [facility] 01-03-2023 14:31-0400 SaO2% (BldA) [Mass fraction] 92 % Dianna Older [employer] COORDINATOR.[employer] Work Phone: [facility] 01-03-2023 14:31-0400 Systolic blood pressure 130 mm[Hg] Dianna Older [employer] CO[employer]INATOR.[employer] Work Phone: [facility] 01-02-2023 13:18-0400 Inhaled oxygen flow rate 2 L/min Dr. Minerva Shaver Work Phone: [facility] 01-02-2023 13:18-0400 SaO2% (BldA) [Mass fraction] 95 % Dr. Minerva Shaver Work Phone: 3(418)750-270746 [place] [address] 01-02-2023 12:19-0400 Heart rate 58 /min Dr. Minerva Shaver Work Phone: 5(755)025-959646 [place] [address] 01-02-2023 12:19-0400 Respiratory rate 14 /min Dr. Minerva Shaver Work Phone: 6(503)951-863446 [place] [address] 01-02-2023 11:04-0400 Body temperature 96.2 [degF] Dr. Minerva Shaver Work Phone: 8(780)393-069546 [place] [address] 01-02-2023 11:04-0400 Diastolic blood pressure 64 mm[Hg] Dr. Minerva Shaver Work Phone: 2(789)153-090446 [place] [address] 01-02-2023 11:04-0400 Systolic blood pressure 108 mm[Hg] Dr. Minerva Shaver Work Phone: 0(304)716-573546 [place] [address] 01-01-2023 14:34-0400 Body height 154.[address] Minerva Shaver Work Phone: 8(589)218-454546 [place] [address] 01-01-2023 14:34-0400 Body weight 63.[address] Minerva Shaver Work Phone: 3(686)840-992146 [place] [address] 01-01-2023 06:00-0400 Body mass index (BMI) [Ratio] 26.4 kg/m2 Dr. Minerva Shaver Work Phone: 9(486)670-762946 [place] [address] 12-31-2022 03:43-0400 Inhaled oxygen concentration 35 % Dr. Minerva Shaver Work Phone: 7(378)[phone] [place] [address] 12-31-2022 02:32-0400 Body temperature 98.2 [degF] Dr. Minerva Shaver Work Phone: 9(305)696-650346 [place] [address] 12-31-2022 02:32-0400 Diastolic blood pressure 68 mm[Hg] Dr. Minerva Shaver Work Phone: 3(844)090-932846 [place] [address] 12-31-2022 02:32-0400 Heart rate 57 /min Dr. Minerva Shaver Work Phone: [facility] 12-31-2022 02:32-0400 Inhaled oxygen concentration 45 % Dr. Minerva Shaver Work Phone: 6(403)662-508646 [place] [address] 12-31-2022 02:32-0400 Respiratory rate 24 /min Dr. Minerva Shaver Work Phone: 1(894)559-984546 [place] [address] 12-31-2022 02:32-0400 SaO2% (BldA) [Mass fraction] 98 % Dr. Minerva Shaver Work Phone: 2(373)936-498046 [place] [address] 12-31-2022 02:32-0400 Systolic blood pressure 171 mm[Hg] Dr. Minerva Shaver Work Phone: 9(860)900-771046 [place] [address] 12-31-2022 01:21-0400 Body height 154.[address] Minerva Shaver Work Phone: 2(279)196-665446 [place] [address] 12-31-2022 01:21-0400 Body mass index (BMI) [Ratio] 28.3 kg/m2 Dr. Minerva Shaver Work Phone: 5(351)881-013246 [place] [address] 12-31-2022 01:21-0400 Body weight [address] Minerva Shaver Work Phone: 4(075)332-718146 [place] [address] 12-26-2022 12:40-0400 Body temperature 97.3 [degF] Dianna Older [employer] Work Phone: [facility] 12-26-2022 12:40-0400 Body weight 62.6 kg Dianna Older [employer] COORDINATOR.[employer] SHIP Work Phone: [facility] 12-26-2022 12:40-0400 Diastolic blood pressure 80 mm[Hg] Dianna Older [employer]UMNI RELATIONS COORDINATOR.[employer] Work Phone: [facility] 12-26-2022 12:40-0400 Heart rate 56 /min Dianna Older [employer] RELATIONS COORDINATOR.[employer] Work Phone: [facility] 12-26-2022 12:40-0400 Respiratory rate 16 /min Dianna Older [employer] RELATIONS COORDINATOR.[employer] Work Phone: [facility] 12-26-2022 12:40-0400 SaO2% (BldA) [Mass fraction] 96 % Dianna Older [employer] RELATIONS COORDINATOR.[employer] Work Phone: [facility] 12-26-2022 12:40-0400 Systolic blood pressure 142 mm[Hg] Dianna Older [employer] RELATIONS COORDINATOR.[employer] Work Phone: [facility] 12-12-2022 11:40-0400 Body temperature 98.01 [degF] Dianna Older [employer] RELATIONS COORDINATOR.[employer] Work Phone: [facility] 12-12-2022 11:40-0400 Body weight 64.41 kg Dianna Older [employer] RELATIONS COORDINATOR.[employer] Work Phone: [facility] 12-12-2022 11:40-0400 Diastolic blood pressure 72 mm[Hg] Dianna Older [employer] RELATIONS COORDINATOR.[employer] Work Phone: [facility] 12-12-2022 11:40-0400 Heart rate 56 /min Dianna Older [employer] RELATIONS COORDINATOR.[employer] Work Phone: [facility] 12-12-2022 11:40-0400 Respiratory rate 16 /min Dianna Older [employer] RELATIONS COORDINATOR.[employer] Work Phone: [facility] 12-12-2022 11:40-0400 SaO2% (BldA) [Mass fraction] 94 % Dianna Older [employer]NI RELATIONS COORDINATOR.[employer] Work Phone: [facility] 12-12-2022 11:40-0400 Systolic blood pressure 136 mm[Hg] Dianna Older [employer] RELATIONS COORDINATOR.[employer] Work Phone: [facility] 10-31-2022 09:04-0400 Body weight 61.69 kg Minerva Shaver MD Work Phone: [facility] 10-31-2022 09:04-0400 Diastolic blood pressure 70 mm[Hg] Minerva Shaver MD Work Phone: [facility] 10-31-2022 09:04-0400 Heart rate 54 /min Minerva Shaver MD Work Phone: [facility] 10-31-2022 09:04-0400 Respiratory rate 16 /min Minerva Shaver MD Work Phone: [facility] 10-31-2022 09:04-0400 SaO2% (BldA) [Mass fraction] 97 % Minerva Shaver MD Work Phone: [facility] 10-31-2022 09:04-0400 Systolic blood pressure 130 mm[Hg] Minerva Shaver MD Work Phone: [facility] 10-03-2022 10:27-0400 Body height 154.[address] Minerva Shaver Work Phone: [facility] 10-03-2022 10:27-0400 Body mass index (BMI) [Ratio] 25.2 kg/m2 Dr. Minerva Shaver Work Phone: [facility] 10-03-2022 10:27-0400 Body weight 60.[address] Minerva Shaver Work Phone: [facility] 10-03-2022 10:27-0400 Diastolic blood pressure 71 mm[Hg] Dr. Minerva Shaver Work Phone: [facility] 10-03-2022 10:27-0400 Heart rate 57 /min Dr. Minerva Shaver Work Phone: [facility] 10-03-2022 10:27-0400 Respiratory rate 16 /min Dr. Minerva Shaver Work Phone: [facility] 10-03-2022 10:27-0400 Systolic blood pressure 131 mm[Hg] Dr. Minerva Shaver Work Phone: [facility] 10-01-2022 10:43-0400 Diastolic blood pressure 66 mm[Hg] Zuleyma Persaud DO Work Phone: [facility] 10-01-2022 10:43-0400 Heart rate 54 /min Zuleyma Persaud DO Work Phone: [facility] 10-01-2022 10:43-0400 SaO2% (BldA) [Mass fraction] 97 % Zuleyma Persaud DO Work Phone: [facility] 10-01-2022 10:43-0400 Systolic blood pressure 140 mm[Hg] Zuleyma Persaud DO Work Phone: [facility] 09-13-2022 10:46-0400 Diastolic blood pressure 53 mm[Hg] Perlita Flowers MD Work Phone: [facility] 09-13-2022 10:46-0400 Heart rate 46 /min Perlita Flowers MD Work Phone: [facility] 09-13-2022 10:46-0400 Respiratory rate 16 /min Perlita Flowers MD Work Phone: [facility] 09-13-2022 10:46-0400 SaO2% (BldA) [Mass fraction] 96 % Perlita Flowers MD Work Phone: [facility] 09-13-2022 10:46-0400 Systolic blood pressure 180 mm[Hg] Perlita Flowers MD Work Phone: [facility] 09-03-2022 10:30-0400 Body height 157.5 cm Zuleyma Persaud DO Work Phone: [facility] 09-03-2022 10:30-0400 Body weight 60.33 kg Zuleyma Persaud DO Work Phone: [facility] 09-03-2022 10:30-0400 Diastolic blood pressure 62 mm[Hg] Zuleyma Persaud DO Work Phone: [facility] 09-03-2022 10:30-0400 Heart rate 62 /min Zuleyma Persaud DO Work Phone: [facility] 09-03-2022 10:30-0400 SaO2% (BldA) [Mass fraction] 96 % Zuleyma Persaud DO Work Phone: [facility] 09-03-2022 10:30-0400 Systolic blood pressure 118 mm[Hg] Zuleyma Persaud DO Work Phone: [facility] 08-29-2022 08:17-0400 Body temperature 97.59 [degF] Minerva Shaver MD Work Phone: [facility] 08-29-2022 08:17-0400 Body weight 60.78 kg Minerva Shaver MD Work Phone: [facility] 08-29-2022 08:17-0400 Diastolic blood pressure 60 mm[Hg] Minerva Shaver MD Work Phone: [facility] 08-29-2022 08:17-0400 Heart rate 60 /min Minerva Shaver MD Work Phone: [facility] 08-29-2022 08:17-0400 Respiratory rate 16 /min Minerva Shaver MD Work Phone: [facility] 08-29-2022 08:17-0400 SaO2% (BldA) [Mass fraction] 99 % Minerva Shaver MD Work Phone: [facility] 08-29-2022 08:17-0400 Systolic blood pressure 116 mm[Hg] Minerva Shaver MD Work Phone: [facility] 08-27-2022 10:21-0400 Body height 154.[address] Minerva Shaver Work Phone: [facility] 08-27-2022 10:21-0400 Body mass index (BMI) [Ratio] 25.7 kg/m2 Dr. Minerva Shaver Work Phone: [facility] 08-27-2022 10:21-0400 Body weight 61.[address] Minerva Shaver Work Phone: [facility] 08-27-2022 10:21-0400 Diastolic blood pressure 81 mm[Hg] Dr. Minerva Shaver Work Phone: [facility] 08-27-2022 10:21-0400 Heart rate 85 /min Dr. Minerva Shaver Work Phone: [facility] 08-27-2022 10:21-0400 Respiratory rate 18 /min Dr. Minerva Shaver Work Phone: 4(811)504-349746 [place] [address] 08-27-2022 10:21-0400 SaO2% (BldA) [Mass fraction] 96 % Dr. Minerva Shaver Work Phone: 1(249)222-886346 [place] [address] 08-27-2022 10:21-0400 Systolic blood pressure 117 mm[Hg] Dr. Minerva Shaver Work Phone: 5(969)199-806546 [place] [address] 08-11-2022 11:41-0400 Body mass index (BMI) [Ratio] 25.5 kg/m2 Dr. Minerva Shaver Work Phone: 9(847)047-211046 [place] [address] 08-11-2022 09:20-0400 Body temperature 97.9 [degF] Dr. Minerva Shaver Work Phone: 5(374)[phone] [place] [address] 08-11-2022 09:20-0400 Diastolic blood pressure 65 mm[Hg] Dr. Minerva Shaver Work Phone: 1(275)751-519746 [place] [address] 08-11-2022 09:20-0400 Heart rate 63 /min Dr. Mienrva Shaver Work Phone: 6(804)116-387746 [place] [address] 08-11-2022 09:20-0400 Respiratory rate 16 /min Dr. Minerva Shaver Work Phone: 1(180)686-000946 [place] [address] 08-11-2022 09:20-0400 SaO2% (BldA) [Mass fraction] 96 % Dr. Minerva Shaver Work Phone: 0(767)304-884646 [place] [address] 08-11-2022 09:20-0400 Systolic blood pressure 159 mm[Hg] Dr. Minerva Shaver Work Phone: 0(906)103-306146 [place] [address] 08-11-2022 03:20-0400 Body temperature 97.9 [degF] Dr. Minerva Shaver Work Phone: 5(891)721-868746 [place] [address] 08-11-2022 03:20-0400 Diastolic blood pressure 62 mm[Hg] Dr. Minerva Shaver Work Phone: 9(894)223-198846 [place] [address] 08-11-2022 03:20-0400 Heart rate 58 /min Dr. Minerva Shaver Work Phone: 7(101)487-518146 [place] [address] 08-11-2022 03:20-0400 Respiratory rate 16 /min Dr. Minerva Shaver Work Phone: 5(308)341-524546 [place] [address] 08-11-2022 03:20-0400 SaO2% (BldA) [Mass fraction] 96 % Dr. Minerva Shaver Work Phone: 4(706)748-545346 [place] [address] 08-11-2022 03:20-0400 Systolic blood pressure 141 mm[Hg] Dr. Minerva Shaver Work Phone: 7(671)613-783846 [place] [address] 08-10-2022 22:04-0400 Body mass index (BMI) [Ratio] 25.5 kg/m2 Dr. Minerva Shaver Work Phone: 4(166)359-830846 [place] [address] 08-10-2022 08:33-0400 Body temperature 98.5 [degF] Dr. Minerva Shaver Work Phone: 1(388)748-094046 [place] [address] 08-10-2022 08:33-0400 Diastolic blood pressure 54 mm[Hg] Dr. Minerva Shaver Work Phone: 0(157)950-016246 [place] [address] 08-10-2022 08:33-0400 Heart rate 50 /min Dr. Minerva Shaver Work Phone: 6(397)438-065346 [place] [address] 08-10-2022 08:33-0400 Respiratory rate 16 /min Dr. Minerva Shaver Work Phone: 2(222)272-284046 [place] [address] 08-10-2022 08:33-0400 SaO2% (BldA) [Mass fraction] 95 % Dr. Minerva Shaver Work Phone: 3(249)389-019646 [place] [address] 08-10-2022 08:33-0400 Systolic blood pressure 152 mm[Hg] Dr. Minerva Shaver Work Phone: 4(869)448-720746 [place] [address] 08-10-2022 02:30-0400 Inhaled oxygen flow rate 2 L/min Dr. Minerva Shaver Work Phone: 0(641)204-540446 [place] [address] 08-10-2022 00:47-0400 Body mass index (BMI) [Ratio] 25.5 kg/m2 Dr. Minerva Shaver Work Phone: 1(409)902-239246 [place] [address] 08-09-2022 09:56-0400 Body height 154.[address] Minerva Shaver Work Phone: 7(906)481-805346 [place] [address] 08-09-2022 09:56-0400 Body weight 61.[address] Minerva Shaver Work Phone: 2(607)470-970946 [place] [address] 08-08-2022 17:39-0400 Body temperature 98.3 [degF] Dr. Minerva Shaver Work Phone: 9(371)840-938546 [place] [address] 08-08-2022 17:39-0400 Diastolic blood pressure 78 mm[Hg] Dr. Minerva Shaver Work Phone: 4(291)059-971646 [place] [address] 08-08-2022 17:39-0400 Heart rate 49 /min Dr. Minerva Shaver Work Phone: 9(526)041-850746 [place] [address] 08-08-2022 17:39-0400 Respiratory rate 19 /min Dr. Minerva Shaver Work Phone: 3(808)438-029146 [place] [address] 08-08-2022 17:39-0400 SaO2% (BldA) [Mass fraction] 96 % Dr. Minerva Shaver Work Phone: 7(566)079-884546 [place] [address] 08-08-2022 17:39-0400 Systolic blood pressure 153 mm[Hg] Dr. Minerva Shaver Work Phone: 7(712)850-924846 [place] [address] 08-08-2022 16:20-0400 Body height 154.[address] Minerva Shaver Work Phone: 1(977)749-637546 [place] [address] 08-08-2022 16:20-0400 Body mass index (BMI) [Ratio] 25.6 kg/m2 Dr. Minerva Shaver Work Phone: 4(474)868-759646 [place] [address] 08-08-2022 16:20-0400 Body weight 61.[address] Minerva Shaver Work Phone: 9(483)037-017046 [place] [address] 08-02-2022 08:04-0400 Body weight 61.[address] Minerva Shaver Work Phone: [facility] 08-02-2022 08:02-0400 Body mass index (BMI) [Ratio] 25.4 kg/m2 Dr. Minerva Shaver Work Phone: [facility] 07-25-2022 15:40-0400 Body height 154.[address] Minerva Shaver Work Phone: [facility] 07-25-2022 15:40-0400 Body mass index (BMI) [Ratio] 25.4 kg/m2 Dr. Minerva Shaver Work Phone: [facility] 07-25-2022 15:40-0400 Body weight 61.[address] Minerva Shaver Work Phone: [facility] 07-25-2022 15:40-0400 Diastolic blood pressure 69 mm[Hg] Dr. Minerva Shaver Work Phone: [facility] 07-25-2022 15:40-0400 Heart rate 70 /min Dr. Minerva Shaver Work Phone: [facility] 07-25-2022 15:40-0400 Respiratory rate 16 /min Dr. Minerva Shaver Work Phone: [facility] 07-25-2022 15:40-0400 Systolic blood pressure 104 mm[Hg] Dr. Minerva Shaver Work Phone: [facility] 07-18-2022 10:34-0500 Body temperature 97.11 [degF] Katheryn Stokes MD Work Phone: [facility] 07-18-2022 10:34-0500 Diastolic blood pressure 78 mm[Hg] Katheryn Stokes MD Work Phone: [facility] 07-18-2022 10:34-0500 Heart rate 121 /min Katheryn Stokes MD Work Phone: [facility] 07-18-2022 10:34-0500 SaO2% (BldA) [Mass fraction] 95 % Katheryn Stokes MD Work Phone: [facility] 07-18-2022 10:34-0500 Systolic blood pressure 118 mm[Hg] Katheryn Stokes MD Work Phone: [facility] 06-18-2022 14:41-0500 Body height 157.5 cm Minerva Shaver MD Work Phone: [facility] 06-18-2022 14:41-0500 Body temperature 97.5 [degF] Minerva Shaver MD Work Phone: [facility] 06-18-2022 14:41-0500 Body weight 61.69 kg Minerva Shaver MD Work Phone: [facility] 06-18-2022 14:41-0500 Diastolic blood pressure 60 mm[Hg] Minerva Shaver MD Work Phone: [facility] 06-18-2022 14:41-0500 Heart rate 53 /min Minerva Shaver MD Work Phone: [facility] 06-18-2022 14:41-0500 Respiratory rate 12 /min Minerva Shaver MD Work Phone: [facility] 06-18-2022 14:41-0500 SaO2% (BldA) [Mass fraction] 95 % Minerva Shaver MD Work Phone: [facility] 06-18-2022 14:41-0500 Systolic blood pressure 132 mm[Hg] Minerva Shaver MD Work Phone: [facility] 06-08-2022 10:17-0500 Body temperature 97.81 [degF] Minerva Shaver MD Work Phone: [facility] 06-08-2022 10:17-0500 Body weight 61.24 kg Minerva Shaver MD Work Phone: [facility] 06-08-2022 10:17-0500 Diastolic blood pressure 68 mm[Hg] Minerva Shaver MD Work Phone: [facility] 06-08-2022 10:17-0500 Heart rate 56 /min Minerva Shaver MD Work Phone: [facility] 06-08-2022 10:17-0500 SaO2% (BldA) [Mass fraction] 96 % Minerva Shaver MD Work Phone: [facility] 06-08-2022 10:17-0500 Systolic blood pressure 158 mm[Hg] Minerva Shaver MD Work Phone: [facility] 05-23-2022 14:10-0500 Body height 157.5 cm Katheryn Stokes MD Work Phone: [facility] 05-23-2022 14:10-0500 Body temperature 97.9 [degF] Katheryn Stokes MD Work Phone: [facility] 05-23-2022 14:10-0500 Body weight 61.51 kg Katheryn Stokes MD Work Phone: [facility] 05-23-2022 14:10-0500 Diastolic blood pressure 72 mm[Hg] Katheryn Stokes MD Work Phone: [facility] 05-23-2022 14:10-0500 Heart rate 62 /min Katheryn Stokes MD Work Phone: [facility] 05-23-2022 14:10-0500 SaO2% (BldA) [Mass fraction] 95 % Katheryn Stokes MD Work Phone: [facility] 05-23-2022 14:10-0500 Systolic blood pressure 124 mm[Hg] Katheryn Stokes MD Work Phone: [facility] 05-22-2022 13:55-0500 Diastolic blood pressure 70 mm[Hg] Dianna Older [employer] RELATIONS COORDINATOR.[employer] Work Phone: [facility] 05-22-2022 13:55-0500 Systolic blood pressure 129 mm[Hg] Dianna Older [employer] RELATIONS COORDINATOR.[employer] Work Phone: [facility] 05-22-2022 13:01-0500 Body temperature 97.81 [degF] Dianna Older [employer] RELATIONS COORDINATOR.[employer] Work Phone: [facility] 05-22-2022 13:01-0500 Body weight 60.78 kg Dianna Older [employer] RELATIONS COORDINATOR.[employer] Work Phone: [facility] 05-22-2022 13:01-0500 Heart rate 56 /min Dianna Older [employer] RELATIONS COORDINATOR.[employer] Work Phone: [facility] 05-22-2022 13:01-0500 Respiratory rate 16 /min Dianna Older [employer]NI RELATIONS COORDINATOR.[employer] Work Phone: [facility] 05-22-2022 13:01-0500 SaO2% (BldA) [Mass fraction] 99 % Dianna Older [employer] RELATIONS COORDINATOR.[employer] Work Phone: [facility] 05-15-2022 11:38-0500 Body temperature 97.59 [degF] Dianna Older [employer] RELATIONS COORDINATOR.[employer] Work Phone: [facility] 05-15-2022 11:38-0500 Body weight 61.24 kg Dianna Older [employer] RELATIONS COORDINATOR.[employer] Work Phone: [facility] 05-15-2022 11:38-0500 Diastolic blood pressure 70 mm[Hg] Dianna Older [employer] RELATIONS COORDINATOR.[employer] Work Phone: [facility] 05-15-2022 11:38-0500 Heart rate 53 /min Dianna Older [employer] RELATIONS COORDINATOR.[employer] Work Phone: [facility] 05-15-2022 11:38-0500 Respiratory rate 16 /min Dianna Older [employer] RELATIONS COORDINATOR.[employer] Work Phone: [facility] 05-15-2022 11:38-0500 SaO2% (BldA) [Mass fraction] 95 % Dianna Older [employer] RELATIONS COORDINATOR.[employer] Work Phone: [facility] 05-15-2022 11:38-0500 Systolic blood pressure 152 mm[Hg] Dianna Older [employer] RELATIONS COORDINATOR.[employer] Work Phone: [facility] 04-29-2022 14:04-0500 Body temperature 99.81 [degF] Hodan Rodney [employer] RELATIONS COORDINATOR.[employer] Work Phone: [facility] 04-29-2022 14:04-0500 Body weight 59.88 kg Hodan Rodney [employer] RELATIONS COORDINATOR.[employer] Work Phone: [facility] 04-29-2022 14:04-0500 Diastolic blood pressure 64 mm[Hg] Hodan Rodney [employer] RELATIONS COORDINATOR.[employer] Work Phone: [facility] 04-29-2022 14:04-0500 Heart rate 77 /min Hodan Rodney [employer] RELATIONS COORDINATOR.[employer] Work Phone: [facility] 04-29-2022 14:04-0500 Respiratory rate 28 /min Hodan Rodney [employer] RELATIONS COORDINATOR.[employer] Work Phone: [facility] 04-29-2022 14:04-0500 SaO2% (BldA) [Mass fraction] 97 % Hodan Rodney [employer] RELATIONS COORDINATOR.[employer] Work Phone: [facility] 04-29-2022 14:04-0500 Systolic blood pressure 120 mm[Hg] Hodan Rodney [employer] RELATIONS COORDINATOR.[employer] Work Phone: [facility] 04-27-2022 17:44-0500 Diastolic blood pressure 65 mm[Hg] Dr. Minerva Shaver Work Phone: [facility] 04-27-2022 17:44-0500 Heart rate 55 /min Dr. Minerva Shaver Work Phone: [facility] 04-27-2022 17:44-0500 Respiratory rate 21 /min Dr. Minerva Shaver Work Phone: [facility] 04-27-2022 17:44-0500 Systolic blood pressure 155 mm[Hg] Dr. Minerva Shaver Work Phone: [facility] 04-27-2022 16:14-0500 SaO2% (BldA) [Mass fraction] 95 % Dr. Minerva Shaver Work Phone: [facility] 04-27-2022 12:22-0500 Body height 154.[address] Minerva Shaver Work Phone: [facility] 04-27-2022 12:22-0500 Body mass index (BMI) [Ratio] 25.1 kg/m2 Dr. Minerva Shaver Work Phone: 0(289)334-431862 [place] [address] 04-27-2022 12:22-0500 Body temperature 97.3 [degF] Dr. Minerva Shaver Work Phone: [facility] 04-27-2022 12:22-0500 Body weight 60.[address] Minerva Shaver Work Phone: [facility] 03-18-2022 13:56-0500 Body temperature 97.59 [degF] Dianna Older [employer] RELATIONS COORDINATOR.[employer] Work Phone: [facility] 03-18-2022 13:56-0500 Body weight 60.78 kg Dianna Older [employer] RELATIONS COORDINATOR.[employer] Work Phone: [facility] 03-18-2022 13:56-0500 Diastolic blood pressure 66 mm[Hg] Dianna Older [employer] RELATIONS COORDINATOR.[employer] Work Phone: [facility] 03-18-2022 13:56-0500 Heart rate 66 /min Dianna Older [employer] RELATIONS COORDINATOR.[employer] Work Phone: [facility] 03-18-2022 13:56-0500 Respiratory rate 16 /min Dianna Older [employer] RELATIONS COORDINATOR.[employer] Work Phone: [facility] 03-18-2022 13:56-0500 SaO2% (BldA) [Mass fraction] 96 % Dianna Older [employer] RELATIONS COORDINATOR.[employer] Work Phone: [facility] 03-18-2022 13:56-0500 Systolic blood pressure 132 mm[Hg] Dianna Older [employer] RELATIONS COORDINATOR.[employer] Work Phone: [facility] 03-06-2022 17:01-0400 SaO2% (BldA) [Mass fraction] 93 % Dr. Minerva Shaver Work Phone: [facility] Work Phone: 03-06-2022 16:18-0400 Body height 154.[address] Minerva Shaver Work Phone: [facility] Work Phone: 03-06-2022 16:18-0400 Body mass index (BMI) [Ratio] 25.3 kg/m2 Dr. Minerva Shaver Work Phone: [facility] Work Phone: 03-06-2022 16:18-0400 Body temperature 97.3 [degF] Dr. Minerva Shaver Work Phone: [facility] Work Phone: 03-06-2022 16:18-0400 Body weight 60.[address] Minerva Shaver Work Phone: [facility] Work Phone: 03-06-2022 16:18-0400 Diastolic blood pressure 72 mm[Hg] Dr. Minerva Shaver Work Phone: [facility] Work Phone: 03-06-2022 16:18-0400 Heart rate 71 /min Dr. Minerva Shaver Work Phone: [facility] Work Phone: 03-06-2022 16:18-0400 Respiratory rate 22 /min Dr. Minerva Shaver Work Phone: [facility] Work Phone: 03-06-2022 16:18-0400 Systolic blood pressure 130 mm[Hg] Dr. Minerva Shaver Work Phone: [facility] Work Phone: 02-22-2022 14:30-0400 Body temperature 97.3 [degF] Minerva Shaver MD Work Phone: [facility] 02-22-2022 14:30-0400 Body weight 59.42 kg Minerva Shaver MD Work Phone: [facility] 02-22-2022 14:30-0400 Diastolic blood pressure 78 mm[Hg] Minerva Shaver MD Work Phone: [facility] 02-22-2022 14:30-0400 Heart rate 60 /min Minerva Shaver MD Work Phone: [facility] 02-22-2022 14:30-0400 Respiratory rate 16 /min Minerva Shaver MD Work Phone: [facility] 02-22-2022 14:30-0400 SaO2% (BldA) [Mass fraction] 96 % Minerva Shaver MD Work Phone: [facility] 02-22-2022 14:30-0400 Systolic blood pressure 124 mm[Hg] Minerva Shaver MD Work Phone: [facility] 01-21-2022 12:03-0400 Body weight 58.97 kg Minerva Shaver MD Work Phone: [facility] 01-21-2022 12:03-0400 Diastolic blood pressure 68 mm[Hg] Minerva Shaver MD Work Phone: [facility] 01-21-2022 12:03-0400 Heart rate 56 /min Minerva Shaver MD Work Phone: [facility] 01-21-2022 12:03-0400 Respiratory rate 16 /min Minerva Shaver MD Work Phone: [facility] 01-21-2022 12:03-0400 Systolic blood pressure 138 mm[Hg] Minerva Shaver MD Work Phone: [facility] 12-24-2021 08:03-0400 Body height 154.9 cm Pacc 1 Work Phone: [facility] 12-24-2021 08:03-0400 Body temperature 97.11 [degF] Pacc 1 Work Phone: [facility] 12-24-2021 08:03-0400 Body weight 60.78 kg Pacc 1 Work Phone: [facility] 12-24-2021 08:03-0400 Diastolic blood pressure 64 mm[Hg] Pacc 1 Work Phone: [facility] 12-24-2021 08:03-0400 Heart rate 58 /min Pacc 1 Work Phone: [facility] 12-24-2021 08:03-0400 Respiratory rate 16 /min Pacc 1 Work Phone: [facility] 12-24-2021 08:03-0400 SaO2% (BldA) [Mass fraction] 97 % Pac 1 Work Phone: [facility] 12-24-2021 08:03-0400 Systolic blood pressure 126 mm[Hg] Pacc 1 Work Phone: [facility] 12-21-2021 10:21-0400 Body height 154.[address] Minerva Shaver Work Phone: [facility] Work Phone: 12-21-2021 10:20-0400 Body mass index (BMI) [Ratio] 25.3 kg/m2 Dr. Minerva Shaver Work Phone: [facility] Work Phone: 12-21-2021 10:20-0400 Body weight 60.[address] Minerva Shaver Work Phone: [facility] Work Phone: 12-21-2021 10:20-0400 Diastolic blood pressure 71 mm[Hg] Dr. Minerva Shaver Work Phone: [facility] Work Phone: 12-21-2021 10:20-0400 Heart rate 53 /min Dr. Minerva Shaver Work Phone: [facility] Work Phone: 12-21-2021 10:20-0400 Respiratory rate 18 /min Dr. Minerva Shaver Work Phone: [facility] Work Phone: 12-21-2021 10:20-0400 SaO2% (BldA) [Mass fraction] 94 % Dr. Minerva Shaver Work Phone: [facility] [facility] Work Phone: 12-21-2021 10:20-0400 Systolic blood pressure 141 mm[Hg] Dr. Minerva Shaver Work Phone: [facility] Work Phone: 09-21-2021 11:39-0400 Body weight 59.42 kg Lindsay Zee MD Work Phone: [facility] 09-21-2021 11:39-0400 Diastolic blood pressure 68 mm[Hg] Lindsay Zee MD Work Phone: [facility] 09-21-2021 11:39-0400 Systolic blood pressure 136 mm[Hg] Lindsay Zee MD Work Phone: [facility] Encounters Encounter Date Encounter Type Care Provider Facility Start: 10-25-2024 ambulatory Dragan Fink Facility:[facility] Start: 10-22-2024 End: 10-22-2024 Office outpatient visit 25 minutes Dianna Ballard ALUMNI RELATIONS COORDINATOR.BOILERMAKER SHIP Work Phone: [facility] [place] Comment on above: History of recent ho spitalization (Primary Dx); Presence of cardiac pacemaker; Paroxysmal atrial fibrillation (HCC); Urinary tract infection without hematuria, site unspecified; Candidiasis of mouth; Benign paroxysmal vertigo, unspecified laterality; Dependent edema; Dyspnea, unspecified type Start: 10-22-2024 End: 10-22-2024 ambulatory DIANNA BALLARD Facility:[facility] Start: 10-20-2024 End: 10-21-2024 Refill Dianna Ballard ALUMNI RELATIONS COORDINATOR.BOILERMAKER SHIP Work Phone: [facility] [place] Comment on above: Refill Request Start: 10-18-2024 End: 10-18-2024 Patient Outreach Maya Velazquez RN Work Phone: [employer]engraving Machine Operator/Tender Management Comment on above: Weekly phone contact (Recurring) for Transitional Care Management Start: 10-15-2024 End: 10-15-[address] Dragan Fink MD -[facility] Work Phone: Start: 10-15-2024 End: 10-15-[address] Minerva Shaver MD Work Phone: [facility] Work Phone: Start: 10-14-2024 End: 10-14-2024 Patient encounter procedure Candecb Rasmussen -[facility] Work Phone: Start: 10-14-2024 End: 10-14-2024 ambulatory Laith Montes MD Work Phone: Pulmonary Medicine Comment on above: Received Outside Med ical Records Start: 10-11-2024 End: 10-11-2024 Patient Outreach Maya Velazquez RN Work Phone: [employer]engraving Machine Operator/Tender Management Comment on above: Initial phone contac t for Transitional Care Management Start: 10-08-2024 End: 10-08-2024 ambulatory [facility] Facility:[facility] Start: 10-05-2024 End: 10-08-2024 ambulatory Minerva Shaver MD Work Phone: Internal Medicine [place] [phone] Start: 10-01-2024 End: 10-08-2024 Evaluation and management of inpatient Anuel Cortes MD Work Phone: [phone] Comment on above: Atrial fibrillation with RVR Start: 09-30-2024 ambulatory [facility] [place]:[facility] [place] Start: 09-30-2024 Non-patient / Non-visit Dr. Erika HICKS -[facility] Start: 09-30-2024 End: 09-30-2024 Admission to same day surgery center Dr. Maxim Ibarra MD -Driver Wheelchair/Special Procedures Work Phone: Start: 09-30-2024 End: 09-30-2024 ambulatory [facility] Facility:[facility] Start: 09-29-2024 End: 09-29-2024 Patient encounter procedure Nagi Freeman NP-C -[facility] Work Phone: Start: 09-29-2024 End: 09-29-[address] Minerva Shaver MD Work Phone: [facility] Work Phone: Start: 09-28-2024 ambulatory [facility] Facility :[facility] Start: 09-25-2024 End: 09-25-[address] Minerva Shaver MD Work Phone: [facility] Work Phone: Start: 09-25-2024 End: 09-25-2024 Patient encounter procedure Ada DURAN -[facility] Work Phone: Start: 09-25-2024 End: 09-25-2024 ambulatory [facility] Facility:[facility] Start: 09-17-2024 End: 09-17-[address] Minerva Shaver MD Work Phone: [facility] Work Phone: Start: 09-17-2024 End: 09-17-[address] Omid Moreno MD -Laboratory Work Phone: Start: 09-17-2024 End: 09-17-2024 ambulatory [facility] Facility:[facility] Start: 09-15-2024 ambulatory [facility] Facility:[facility] [place] Start: 09-15-2024 Non-patient / Non-visit Dr. Nils salcedo MD -[facility]- Start: 09-15-2024 End: 09-15-[address] Minerva Shaver MD Work Phone: [facility] Work Phone: Start: 09-15-2024 End: 09-15-2024 Patient encounter procedure Ada DURAN -Pulmonary Services/Neurology Work Phone: Start: 09-15-2024 End: 09-15-2024 ambulatory [facility] Facility:[facility] Start: 08-17-2024 End: 08-17-2024 Patient encounter procedure Ada DURAN -[facility] Work Phone: Start: 08-17-2024 End: 08-17-[address] Minerva Shaver MD Work Phone: [facility] Work Phone: Start: 08-17-2024 End: 08-17-2024 ambulatory [facility] Facility:[facility] Start: 08-12-2024 ambulatory Omid Moreno Facility:[facility] Start: 08-11-2024 End: 08-11-2024 ambulatory Minerva Shaver MD Work Phone: [facility] Start: 08-11-2024 End: 08-11-2024 Patient encounter procedure Minerva Shaver MD Work Phone: [facility] Comment on above: Population Health Na vigation Outreach [facility] Vertigo (Primary Dx) ; Paroxysmal atrial fibrillation (HCC); Sinus drainage; Neck pain Start: 08-09-2024 ambulatory Nagi Freeman NP Facility :[facility] Start: 08-06-2024 End: 08-09-2024 Refill Dianna Ballard APRN.[employer]MAKER SHIP Work Phone: [facility] [place] Comment on above: Refill Request Start: 08-05-2024 End: 08-05-2024 ambulatory Naila Dodd RN Work Phone: [employer]engraving Machine Operator/Tender Management Comment on above: MECHE VALDEZ RN ( Chart review review per request of payor ) Start: 07-31-2024 End: 08-01-2024 Emergency department patient visit Dr. Minerva Shaver MD Work Phone: -Emergency Department Work Phone: Start: 07-29-2024 End: 07-29-[address] Minerva Shaver MD Work Phone: [facility] Work Phone: Start: 07-29-2024 End: 07-29-[address] Omid Moreno MD -Radiology, [facility] Work Phone: Start: 07-28-2024 End: 07-29-2024 ambulatory Dianna Ballard APRN.[employer]MAKER SHIP Work Phone: [facility] [place] Comment on above: Rehabilitation Start: 07-27-2024 End: 07-27-2024 Patient encounter procedure Nagi Freeman FORMULATOR- -[facility] Work Phone: Start: 07-27-2024 End: 07-27-2024 ambulatory Nagi H Roof FORMULATOR Facility:[facility] Start: 07-23-2024 End: 08-13-2024 Telephone encounter Dianna Older ALUMNI RELATIONS COORDINATOR.BOILERMAKER SHIP Work Phone: [facility] [place] Comment on above: note for work Start: 07-22-2024 End: 07-26-2024 ambulatory Dianna Older ALUMNI RELATIONS COORDINATOR.BOILERMAKER SHIP Work Phone: [facility] [place] Comment on above: Back to work paper Start: 07-22-2024 End: 07-22-2024 Patient encounter procedure Dianna Older ALUMNI RELATIONS COORDINATOR.BOILERMAKER SHIP Work Phone: [facility] [place] Comment on above: Pneumonia of right u pper lobe due to infectious organism (Primary Dx) Start: 07-15-2024 End: 07-15-2024 [facility] Facility:[facility] Start: 07-15-2024 End: 07-15-2024 Patient encounter procedure Dianna Older ALUMNI RELATIONS COORDINATOR.BOIL[employer]MAKER SHIP Work Phone: [facility] [place] Comment on above: Acute otitis media, unspecified otitis media type (Primary Dx); Viral sinusitis; Pneumonia of right upper lobe due to infectious organism Start: 07-08-2024 End: 07-08-2024 [facility] Facility:[facility] Start: 07-08-2024 End: 07-08-2024 Patient encounter procedure Dianna Older ALUMNI RELATIONS COORDINATOR.BOILERMAKER SHIP Work Phone: [facility] [place] Comment on above: Pneumonia of right u pper lobe due to infectious organism (Primary Dx) Start: 07-06-2024 End: 07-06-2024 [facility] Facility:[facility] Start: 07-06-2024 End: 07-06-2024 Subsequent hospital visit by physician [facility] ([facility]) Work Phone: Cat Scan Comment on above: Lung nodules [R91.8] Start: 07-05-2024 End: 07-05-2024 Subsequent hospital visit by physician [facility] Work Phone: Radiology Comment on above: Viral illness [B34.9 ] Start: 07-05-2024 End: 07-05-2024 [facility] Facility:[facility] Start: 07-05-2024 End: 07-05-2024 Office outpatient new 30 minutes Nadir Pickard PA-C Work Phone: [facility] Comment on above: Viral illness (Prima ry Dx); Pneumonia of right upper lobe due to infectious organism Start: 06-22-2024 End: 06-22-2024 ambulatory [facility] Facility:[facility] Start: 06-22-2024 End: 06-22-2024 Office outpatient visit 25 minutes Fco Vidales PA-C Work Phone: [facility] [place] Comment on above: Acute cough (Primary Dx) Start: 06-22-2024 End: 06-22-2024 Telephone encounter Laith Montes MD Work Phone: Pulmonary Medicine Comment on above: Results; Orders ([facility] CT) Start: 06-17-2024 End: 06-17-2024 ambulatory [facility] Facility:[facility] Start: 06-17-2024 End: 06-17-2024 Patient encounter procedure Laith Montes MD Work Phone: Pulmonary Medicine Comment on above: 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) (Primary Dx); Lung nodules; Former cigarette smoker Start: 05-26-2024 End: 05-28-2024 Telephone encounter Minerva Shaver MD Work Phone: [facility] [place] Comment on above: Medication Question Start: 05-25-2024 End: 05-26-2024 Emergency department patient visit Saul Guzman DO -Emergency Department Work Phone: Start: 04-28-2024 End: 04-28-2024 Patient encounter procedure Nagi Freeman FORMULATOR-C -[facility] Work Phone: Start: 04-28-2024 End: 04-28-2024 ambulatory aNgi Freeman FORMULATOR Facility:[facility] Start: 04-22-2024 End: 04-22-2024 ambulatory [facility] Facility:[facility] Start: 04-22-2024 End: 04-22-2024 Subsequent hospital visit by physician Alli Hernandez MD Work Phone: Cardiology [facility] Comment on above: Persistent atrial fi brillation Start: 04-21-2024 End: 04-21-2024 Subsequent hospital visit by physician Alli Hernandez MD Work Phone: [facility] Comment on above: Arrived Start: 04-21-2024 ambulatory ALLI HERNANDEZ Faci lity:[facility] Start: 04-21-2024 Anes nerve muscle td n fascia&bursa forearm wrist ALLI HERNANDEZ Facility:[facility] Start: 04-21-2024 Encounter for preprocedural cardiovascular examination ALLI HERNANDEZ [facility] Start: 04-19-2024 End: 04-19-2024 Patient encounter procedure Nagi Freeman FORMULATOR-C -Laboratory Work Phone: Start: 04-19-2024 End: 04-19-2024 Patient encounter procedure Nagi Freeman FORMULATOR-C -[facility] Work Phone: Start: 04-19-2024 End: 04-19-2024 ambulatory Nagi Freeman FORMULATOR Facility:[facility] Start: 04-19-2024 End: 04-19-2024 ambulatory Nagi Freeman FORMULATOR Facility:[facility] Start: 04-12-2024 End: 04-17-2024 Evaluation and management of inpatient Toña Persaud MD Work Phone: Comment on above: Atrial fibrillation Start: 04-12-2024 End: 04-12-2024 Emergency department patient visit Dr. Janes Zamudio DO -Emergency Department Work Phone: Start: 04-02-2024 End: 04-02-2024 Office outpatient visit 25 minutes Minerva Shaver MD Work Phone: [facility] [place] Comment on above: Medicare annual well ness visit, subsequent (Primary Dx); Generalized arthritis; Peripheral arterial disease (HCC); Memory deficit; Encounter for monitoring chronic NSAID therapy; Thrush; Frailty syndrome in geriatric patient; Balance disorder; Generalized osteoarthrosis Start: 04-02-2024 End: 04-05-2024 ambulatory Minerva Shaver MD Work Phone: [facility] [place] Comment on above: Rehabilitation Start: 04-02-2024 End: 04-02-2024 Patient encounter procedure Minerva Shaver MD Work Phone: [facility] Start: 04-02-2024 End: 04-02-2024 ambulatory Nagi H Pete FORMULATOR Facility:[facility] Start: 03-24-2024 End: 03-24-2024 ambulatory Nagi H Pete FORMULATOR Facility:[facility] Start: 03-24-2024 End: 03-24-2024 ambulatory Nagi H Roof FORMULATOR Facility:[facility] Start: 03-16-2024 ambulatory Risa Cho [facility] [place] Start: 03-08-2024 Emergency department patient visit MINERVA Yves SHAVER Facility:[facility] Start: 03-08-2024 ambulatory ALLI Yin lity:[facility] Start: 02-23-2024 End: 02-23-2024 Telephone encounter Minerva Shaver MD Work Phone: Internal [facility] Comment on above: Forms Start: 02-21-2024 End: 02-21-2024 ambulatory [facility] Nurse [place] Work Phone: Family [facility] Start: 02-21-2024 End: 02-21-2024 Patient encounter procedure [facility]ization [facility] Nurse [place] Work [facility] Start: 01-22-2024 End: 01-22-2024 ambulatory Nagi H Pete FORMULATOR Facility:[facility] Start: 01-15-2024 ambulatory Varun Montes [facility] [place] Start: 01-15-2024 End: 01-15-2024 ambulatory Maxim Ibarra Facility:[facility] Start: 01-01-2024 End: 01-01-2024 ambulatory MINERVA SHAVER Facility:[facility] Start: 01-01-2024 End: 01-01-2024 Patient encounter procedure Dianna Ballard APRN.CNP Work Phone: [facility] [place] Comment on above: Paroxysmal atrial fi brillation (HCC) (Primary Dx); Congestive heart failure, unspecified HF chronicity, unspecified heart failure type (HCC); Primary hypertension; Chronic obstructive pulmonary disease with acute exacerbation (HCC) Start: 12-25-2023 ambulatory Dianna SunBOILERMAKER SHIP Work Phone: [facility] [place] Comment on above: [place] 77 Start: 12-23-2023 ambulatory Farhad Whitt Facility[place] Start: 12-22-2023 End: 12-23-2023 ambulatory Susan Mac PA Facility:[facility] Start: 12-22-2023 End: 12-22-2023 ambulatory Nagi Freeman FORMULATOR Facility:[facility] Start: 12-15-2023 End: 12-15-2023 ambulatory [facility] Work Phone: [facility] Comment on above: Spirometry Start: 12-15-2023 End: 12-15-2023 Patient encounter procedure [facility] Work Phone: [facility] Comment on above: COPD, mild (HCC) (Pr imary Dx); Former cigarette smoker Start: 10-23-2023 Refill Dianna SunBOILERMAKER SHIP Work Phone: [facility] [place] Comment on above: Refill Request Start: 09-29-2023 End: 09-29-2023 Patient encounter procedure Dianna Ballard APRN.BOILERMAKER SHIP Work Phone: [facility] [place] Comment on above: Paroxysmal atrial fi brillation (HCC) (Primary Dx); Congestive heart failure, unspecified HF chronicity, unspecified heart failure type (HCC); Primary hypertension; Chronic obstructive pulmonary disease with acute exacerbation (HCC); 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; Dermatitis; Lipid screening Start: 09-05-2023 End: 09-05-2023 Emergency department patient visit Dr. Minerva Shaver Work Phone: [facility]-Emergency Department Work Phone: Start: 09-05-2023 End: 09-05-2023 Patient encounter procedure Katheryn Stokes MD Work Phone: General Surgery Comment on above: Dysphagia, unspecifi ed type (Primary Dx) Start: 08-20-2023 Telephone encounter Katheryn [place] MD Work Phone: General Surgery Comment on above: Results Start: 08-18-2023 ambulatory [place] WALKER Facilit y:[facility] Start: 08-18-2023 End: 08-18-2023 Subsequent hospital visit by physician Katheryn [place] MD Work Phone: [facility] Endoscopy Comment on above: Dysphagia, unspecifi ed type [R13.10] Start: 08-15-2023 End: 08-15-[address] Minerva Shaver Work Phone: [facility] Work Phone: Start: 08-11-2023 End: 08-11-[address] Minerva Shaver Work Phone: [facility] Work Phone: Start: 08-05-2023 End: 08-05-[address] Minerva Shaver Work Phone: [facility] Work Phone: Start: 08-02-2023 Refill Laith Montes MD Work Phone: Pulmonary Medicine Comment on above: Refill Request Start: 07-14-2023 Refill Hodan Tee PRN.CNP Work Phone: [facility] [place] Comment on above: Refill Request Start: 07-11-2023 End: 07-11-[address] Minerva Shaver Work Phone: [facility] Work Phone: Start: 07-04-2023 Non-patient / Non-visit Dr. Bee Shaver Work Phone: [facility] Start: 07-04-2023 End: 07-04-2023 Admission to same day surgery center Dr. Minerva Shaver Work Phone: [facility]-Driver Wheelchair/Special Procedures Work Phone: Start: 07-04-2023 End: 07-04-[address] Minerva Shaver Work Phone: [facility] Work Phone: Start: 06-30-2023 End: 06-30-2023 Patient encounter procedure Dianna Ballard APRN.ANITHA Work Phone: [facility] [place] Comment on above: Chronic congestive h eart failure, unspecified heart failure type (HCC) (Primary Dx); Paroxysmal atrial fibrillation (HCC); Primary hypertension; History of CVA (cerebrovascular accident); Thrush Start: 06-24-2023 Non-patient / Non-visit Dr. Bee Shaver Work Phone: [facility] Start: 06-17-2023 End: 06-17-[address] [facility] Work Phone: Start: 06-17-2023 End: 06-17-2023 Patient encounter procedure [facility]-Laboratory Work Phone: Start: 06-05-2023 End: 06-05-[address] [facility] Work Phone: Start: 06-05-2023 End: 06-05-2023 Patient encounter procedure [facility]-Pulmonary Services/Neurology Work Phone: Start: 05-30-2023 End: 03-16-2024 Telephone encounter Katheryn [place] MD Work Phone: General Surgery Comment on above: 08/18/2023 EGD [facility] Start: 05-01-2023 E-mail encounter fro m caregiver Joshua Nettles DO Work Phone: [facility] Start: 05-01-2023 Patient encounter procedure Joshua Nettles DO Work Phone: Cardiology Comment on above: Appointment Start: 04-10-2023 Refill Minerva Lawson Work Phone: [facility] Comment on above: Refill Request Start: 04-02-2023 End: 04-02-[address] Minerva Shaver Work Phone: [facility] Work Phone: Start: 04-02-2023 End: 04-02-[address] Minerva Shaver Work Phone: [facility]-Radiology, [facility] Work Phone: Start: 03-31-2023 End: 03-31-2023 Patient encounter procedure Dianna Ballard APRN.CNP Work Phone: [facility] [place] Comment on above: Acute non-recurrent sinusitis, unspecified location (Primary Dx) Start: 03-24-2023 ambulatory Laith Montes MD Work Phone: Pulmonary Medicine Comment on above: Results (Nocturnal o ximetry) Start: 03-23-2023 Refill Lizzette WALTER Work Phone: [facility] [place] Comment on above: Refill Request Start: 03-17-2023 End: 03-17-2023 ambulatory Lupe Balladr APRN.ANITHA Work Phone: [facility] [place] Comment on above: COVID-19 virus infec tion (Primary Dx) Start: 03-17-2023 End: 03-17-2023 Telemedicine consultation with patient Lupe Ballard APRN.[employer]IP Work Phone: [facility] [place] Start: 03-04-2023 Telephone encounter Davin Ramos PA-C Work Phone: [facility] [place] Comment on above: Medication Clarifica tion Start: 03-04-2023 End: 03-04-2023 Patient encounter procedure Davin Rudd PA-C Work Phone: [facility] [place] Comment on above: Chronic obstructive pulmonary disease, unspecified COPD type (HCC) (Primary Dx); Generalized arthritis Start: 03-03-2023 Telephone encounter Neurology Provid er Neurology Comment on above: Results Start: 02-28-2023 Telephone encounter Dianna Ballard APRN.CNP Work Phone: [facility] [place] Comment on above: Patient Question Start: 02-10-2023 End: 02-10-2023 Patient encounter procedure Dianna Ballard APRN.CNP Work Phone: [facility] [place] Comment on above: Primary hypertension (Primary Dx); Chronic congestive heart failure, unspecified heart failure type (HCC); Chronic obstructive pulmonary disease, unspecified COPD type (HCC); Paroxysmal atrial fibrillation (HCC); Encounter for immunization Start: 02-04-2023 End: 02-04-[address] Minerva Shaver Work Phone: [facility] Work Phone: Start: 01-28-2023 End: 01-28-2023 Office outpatient visit 40 minutes Юлия Oden MD Work Phone: [facility] [place] Comment on above: Paroxysmal atrial fi brillation (HCC) (Primary Dx); Chronic obstructive pulmonary disease with acute exacerbation (HCC); History of Clostridium difficile colitis; Chronic congestive heart failure, unspecified heart failure type (HCC) Start: 01-27-2023 End: 01-27-2023 Patient encounter procedure Laith Montes MD Work Phone: Pulmonary Medicine Comment on above: Stage 3 severe COPD by GOLD classification (HCC) (Primary Dx); Acute bronchitis, unspecified organism; Former cigarette smoker; Paroxysmal atrial fibrillation (HCC) Start: 01-27-2023 End: 01-27-2023 ambulatory [facility] Work Phone: [facility] Comment on above: Spirometry Start: 01-27-2023 End: 01-27-2023 Patient encounter procedure [facility] Work Phone: [facility] Start: 01-24-2023 Telephone encounter Dianna Ballard APRN.[employer]MAKER SHIP Work Phone: [facility] [place] Comment on above: Results Start: 01-23-2023 End: 01-23-[address] Minerva Shaver Work Phone: [facility] Work Phone: Start: 01-23-2023 End: 01-23-2023 Subsequent hospital visit by physician [facility] Work Phone: Radiology Comment on above: Shortness of breath [R06.02] Start: 01-23-2023 End: 01-23-2023 Patient encounter procedure Dianna Ballard APRN.[employer]MAKER SHIP Work Phone: [facility] [place] Comment on above: Atrial fibrillation, unspecified type (HCC) (Primary Dx); Bradycardia; Congestive heart failure, unspecified HF chronicity, unspecified heart failure type (HCC); Shortness of breath; Recurrent pneumonia; Subacute cough; On home oxygen therapy; History of recent hospitalization; Acute pain of right shoulder; Fall, initial encounter Start: 01-10-2023 End: 01-10-2023 Patient encounter procedure Dianna Ballard APRN.[employer]MAKER [employer]IP Work Phone: [facility] [place] Comment on above: Pneumonia due to inf ectious organism, unspecified laterality, unspecified part of lung (Primary Dx); Atrial fibrillation, unspecified type (HCC); Abnormal EKG; Congestive heart failure, unspecified HF chronicity, unspecified heart failure type (HCC) Start: 01-03-2023 End: 01-03-2023 Patient encounter procedure Dianna Ballard APRN.[employer]MAK[employer] SHIP Work Phone: [facility] [place] Comment on above: History of recent ho spitalization (Primary Dx); Congestive heart failure, unspecified HF chronicity, unspecified heart failure type (HCC); Pneumonia due to infectious organism, unspecified laterality, unspecified part of lung; Chronic obstructive pulmonary disease, unspecified COPD type (HCC); Function kidney decreased; C. difficile diarrhea; On home oxygen therapy Start: 01-02-2023 Non-patient / Non-visit Dr. Bee Shaver Work Phone: [facility] Work Phone: Start: 01-01-2023 Non-patient / Non-visit Dr. Bee Shaver Work Phone: [facility] Work Phone: Start: 12-31-2022 Non-patient / Non-visit Dr. Bee Shaver Work Phone: [facility] Start: 12-31-2022 End: 01-02-2023 Evaluation and management of inpatient Dr. Minerva Shaver Work Phone: [facility]Progressive Care Unit Work Phone: Start: 12-30-2022 Telephone encounter Dianna Ballard APRN.[employer] Work Phone: [facility] [place] Comment on above: Results Start: 12-26-2022 Telephone encounter Dianna Ballard APRN.[employer] Work Phone: [facility] [place] Comment on above: Results Start: 12-26-2022 End: 12-26-2022 Subsequent hospital visit by physician [facility] ([facility] Work Phone: Cat Scan Comment on above: Left lower quadrant abdominal pain [R10.32] Start: 12-26-2022 End: 12-26-2022 Patient encounter procedure Dianna Ballard APRN.[employer] Work Phone: [facility] [place] Comment on above: Left lower quadrant abdominal pain (Primary Dx); Right lower quadrant abdominal tenderness without rebound tenderness; Bowel habit changes; Blood in stool Start: 12-13-2022 Telephone encounter Dianna Ballard APRN.[employer] Work Phone: [facility] [place] Comment on above: Results Start: 12-12-2022 End: 12-12-2022 Subsequent hospital visit by physician [facility] Work Phone: Radiology Comment on above: Fever, unspecified f ever cause [R50.9] Start: 12-12-2022 End: 12-12-2022 Patient encounter procedure Dianna Ballard APRN.[employer] Work Phone: [facility] [place] Comment on above: Fever, unspecified f ever cause (Primary Dx); Cough, unspecified type; Wheezing; Sore throat; Bilateral lower extremity edema; Congestive heart failure, unspecified HF chronicity, unspecified heart failure type (HCC) Start: 11-25-2022 End: 11-25-[address] Minerva Shaver Work Phone: [facility] Work Phone: Start: 11-25-2022 End: 11-25-[address] Minerva Shaver Work Phone: [facility]-Physical Therapy Work Phone: Start: 11-07-2022 ambulatory MINERVA SHAVER [facility] Amb[facility] Start: 10-31-2022 End: 10-31-2022 Patient encounter procedure Minerva Shaver MD Work Phone: [facility] [place] Comment on above: Atrial fibrillation, unspecified type (HCC) (Primary Dx); Generalized arthritis; Primary hypertension; Congestive heart failure, unspecified HF chronicity, unspecified heart failure type (HCC) Start: 10-03-2022 End: 10-03-[address] Minerva Shaver Work Phone: [facility] Work Phone: Start: 10-01-2022 End: 10-01-2022 Patient encounter procedure Zuleyma Persaud DO Work Phone: Vascular Surgery Comment on above: Peripheral arterial disease (HCC) (Primary Dx) Start: 09-26-2022 End: 09-26-2022 Subsequent hospital visit by physician [facility] Work Phone: Radiology Comment on above: Fall, initial encoun ter [W19.XXXA] Start: 09-13-2022 End: 09-13-2022 Refill Nellie Lewis LPN [facility] Comment on above: TIA (transient ische isiah attack) Start: 09-13-2022 End: 09-13-2022 Office outpatient new 45 minutes Dianna Ballard CNP Work Phone: [facility] Comment on above: Lumbar spondylosis ( Primary Dx); TIA (transient ischemic attack) Start: 09-03-2022 End: 09-03-2022 Patient encounter procedure Zuleyma Persaud DO Work Phone: Vascular Surgery Comment on above: Peripheral arterial disease (HCC) (Primary Dx) Start: 09-02-2022 End: 09-02-[address] Minerva Shaver Work Phone: [facility] Work Phone: Start: 08-29-2022 End: 08-29-2022 Patient encounter procedure Minerva Shaver MD Work Phone: [facility] [place] Comment on above: Bradycardia (Primary Dx); Acute non-recurrent maxillary sinusitis; Congestive heart failure, unspecified HF chronicity, unspecified heart failure type (HCC); Atrial fibrillation, unspecified type (HCC); Panlobular emphysema (HCC); 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 Start: 08-27-2022 End: 08-27-[address] Minerva Shaver Work Phone: [facility] Work Phone: Start: 08-27-2022 End: 08-27-[address] Minerva Shaver Work Phone: [facility] Start: 08-19-2022 Transcribe Orders Dianna Alonso Work Phone: [facility], Neuroscience Comment on above: Cerebrovascular acci dent (CVA), unspecified mechanism (HCC) (Primary Dx) Start: 08-11-2022 Non-patient / Non-visit Dr. Bee Shaver Work Phone: [facility] Start: 08-10-2022 Non-patient / Non-visit Dr. Bee Shaver Work Phone: [facility] Start: 08-10-2022 End: 08-10-2022 Non-patient / Non-visit Dr. Minerva Shaver Work Phone: [facility] Start: 08-09-2022 Non-patient / Non-visit Dr. Bee Shaver Work Phone: [facility] Start: 08-08-2022 Non-patient / Non-visit Dr. Bee Shaver Work Phone: [facility] Start: 08-08-2022 End: 08-11-2022 Evaluation and management of inpatient Dr. Minerva Shaver Work Phone: [facility]-Progressive Care Unit Start: 08-08-2022 ambulatory Minerva Lawson Work Phone: [facility] [place] Comment on above: Neurologic Problem Start: 08-06-2022 Non-patient / Non-visit Dr. Bee Shaver Work Phone: [facility] Start: 08-06-2022 End: 08-06-[address] Minerva Shaver Work Phone: [facility] Work Phone: Start: 08-06-2022 End: 08-06-[address] Minerva Shaver Work Phone: [facility]-Cardiovascula r Services Start: 08-05-2022 End: 08-05-2022 Non-patient / Non-visit Dr. Minerva Shaver Work Phone: [facility] Start: 08-05-2022 End: 08-05-2022 Admission to same day surgery center Dr. Minerva Shaver Work Phone: [facility]-Driver Wheelchair/Special Procedures Start: 08-05-2022 End: 08-05-[address] Minerva Shaver Work Phone: [facility] Work Phone: Start: 07-25-2022 End: 07-25-[address] Minerva Shaver Work Phone: [facility] Work Phone: Start: 07-25-2022 End: 07-25-[address] Minerva Shaver Work Phone: [facility]-Laboratory Start: 07-25-2022 End: 07-25-[address] Minerva Shaver Work Phone: [facility] Start: 07-19-2022 Telephone encounter Minerva melgoza MD Work Phone: [facility] [place] Comment on above: Referral Request (Dr Bhardwaj) Start: 07-18-2022 End: 07-18-2022 Patient encounter procedure Katheryn Stokes MD Work Phone: General Surgery Comment on above: Incisional hernia, w ithout obstruction or gangrene (Primary Dx); Dysphagia, unspecified type; Hiatal hernia with GERD without esophagitis; Personal history of colonic polyps Start: 07-12-2022 End: 07-12-[address] Minerva Shaver Work Phone: [facility] Work Phone: Start: 07-12-2022 End: 07-12-[address] Minerva Shaver Work Phone: [facility]-Radiology, [facility] Start: 06-27-2022 Telephone encounter Minerva melgoza MD Work Phone: [facility] [place] Comment on above: FMLA Paperwork Start: 06-18-2022 End: 06-18-2022 Patient encounter procedure Minerva Shaver MD Work Phone: [facility] [place] Comment on above: Congestive heart gema lure, unspecified HF chronicity, unspecified heart failure type (HCC) (Primary Dx); Atrial fibrillation, unspecified type (HCC); Primary hypertension Start: 06-17-2022 Telephone encounter Minerva melgoza MD Work Phone: [facility] [place] Comment on above: Results Start: 06-08-2022 ambulatory Minerva Lawson Work Phone: [facility] [place] Start: 06-08-2022 End: 06-08-2022 Patient encounter procedure Minerva Shaver MD Work Phone: [facility] [place] Comment on above: Abdominal pain, unsp ecified abdominal location (Primary Dx); Other fatigue; Fever, unspecified fever cause; Chills; Vitamin B12 deficiency; Vitamin D deficiency Start: 05-29-2022 End: 05-29-[address] Minerva Shaver Work Phone: [facility] Start: 05-28-2022 End: 05-28-2022 Subsequent hospital visit by physician [facility] ([facility] Work Phone: Cat Scan Comment on above: Hiatal hernia with G ERD without esophagitis [K44.9, K21.9] Start: 05-23-2022 Telephone encounter Minerva melgoza MD Work Phone: [facility] [place] Comment on above: Results waitlist; 06/11/2022 colon asc' Start: 05-23-2022 End: 05-23-2022 Patient encounter procedure Katheryn Stokes MD Work Phone: General Surgery Comment on above: Personal history of colonic polyps (Primary Dx); Hiatal hernia with GERD without esophagitis; Dysphagia, unspecified type; Incisional hernia, without obstruction or gangrene Start: 05-22-2022 End: 05-22-2022 Patient encounter procedure Dianna Ballard APRN.[employer] Work Phone: [facility] [place] Comment on above: Epigastric pain (Farzaneh brit Dx); Hiatal hernia with GERD without esophagitis; Bowel habit changes; Other fatigue; Nausea; Fever, unspecified fever cause Start: 2022 Telephone encounter Dianna Ballard APRN.[employer] Work Phone: [facility] [place] Comment on above: Results Start: 05-17-2022 Telephone encounter Minerva melgoza MD Work Phone: [facility] [place] Comment on above: Patient Update Start: 05-15-2022 End: 05-15-2022 Subsequent hospital visit by physician [facility] Work Phone: Radiology Comment on above: Fever, unspecified f ever cause [R50.9] Start: 05-15-2022 End: 05-15-2022 Patient encounter procedure Dianna Ballard APRN.[employer] Work Phone: [facility] [place] Comment on above: Shortness of breath (Primary Dx); Fever, unspecified fever cause; Other fatigue; Elevated liver enzymes; Decreased appetite; Foul smelling urine; Dysphagia, unspecified type; Hiatal hernia with GERD without esophagitis; 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 Minerva Shaver Work Phone: [facility] Work Phone: Start: 05-10-2022 End: 05-10-[address] Minerva Shaver Work Phone: [facility]-Ultrasound, [facility] Start: 05-07-2022 End: 05-07-[address] Minerva Shaver Work Phone: [facility] Work Phone: Start: 05-07-2022 End: 05-07-[address] Minerva Shaver Work Phone: [facility]-Radiology, [facility] Start: 05-02-2022 Telephone encounter Dianna Ballard APRN.[employer] Work Phone: [facility] [place] Comment on above: Patient Question Start: 05-01-2022 Telephone encounter Minerva melgoza MD Work Phone: [facility] [place] Comment on above: fax referral to outs anant Start: 04-30-2022 Telephone encounter Hodan cross APRN.[employer] Work Phone: [facility] [place] Comment on above: Results Start: 04-29-2022 End: 04-29-2022 Patient encounter procedure Hodan Stevens APRN.[employer] Work Phone: [facility] [place] Comment on above: Hiatal hernia with G ERD without esophagitis (Primary Dx); 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 Minerva Shaver Work Phone: [facility]-Emergency Department Start: 04-27-2022 End: 04-27-2022 Patient encounter procedure Tamica Carson APRN.[employer] Work Phone: [facility] Comment on above: Abdominal pain, unsp ecified abdominal location (Primary Dx); Difficulty breathing Start: 04-19-2022 Telephone encounter Minerva melgoza MD Work Phone: [facility] [place] Comment on above: Results Start: 04-18-2022 End: 04-18-2022 Subsequent hospital visit by physician [facility] Work Phone: Radiology Comment on above: Pneumonia of right m iddle lobe due to infectious organism [J18.9] Start: 04-16-2022 End: 04-16-[address] Minerva Shaver Work Phone: [facility] Work Phone: Start: 04-16-2022 End: 04-16-[address] Minerva Shaver Work Phone: [facility]Labor[facility] Start: 04-15-2022 End: 04-15-[address] Minerva Shaver Work Phone: [facility] Work Phone: Start: 04-15-2022 End: 04-15-[address] Minerva Shaver Work Phone: [facility] Start: 04-08-2022 Non-patient / Non-visit Dr. Bee Shaver Work Phone: [facility] Start: 04-08-2022 End: 04-08-[address] iMnerva Shaver Work Phone: [facility] Work Phone: Start: 04-08-2022 End: 04-08-[address] Minerva Shaver Work Phone: [facility]-Cardiovascula r Services Start: 04-02-2022 End: 04-02-[address] Minerva Shaver Work Phone: [facility] Work Phone: Start: 04-02-2022 End: 04-02-[address] Minerva Shaver Work Phone: [facility]-Radiology, [facility] Start: 03-22-2022 Telephone encounter Minerva melgoza MD Work Phone: [facility] [place] Comment on above: Letter (return back to work without restrictions) Start: 03-20-2022 Telephone encounter Minerva melgoza MD Work Phone: [facility] [place] Comment on above: Patient Question Start: 03-18-2022 End: 03-18-2022 Patient encounter procedure Dianna Ballard APRN.[employer] Work Phone: [facility] [place] Comment on above: Pneumonia due to inf ectious organism, unspecified laterality, unspecified part of lung (Primary Dx) Start: 03-15-2022 End: 03-15-2022 Subsequent hospital visit by physician [facility] Work Phone: Radiology Comment on above: Chest pain, unspecif ied type [R07.9] Start: 03-08-2022 End: 03-08-2022 Patient encounter procedure Dianna Ballard APRN.[employer] Work Phone: [facility] [place] Comment on above: Pneumonia due to inf ectious organism, unspecified laterality, unspecified part of lung (Primary Dx); Congestive heart failure, unspecified HF chronicity, unspecified heart failure type (HCC); Gastroesophageal reflux disease, unspecified whether esophagitis present Start: 03-06-2022 End: 03-06-[address] Minerva Shaver Work Phone: [facility] Work Phone: Start: 03-06-2022 End: 03-06-[address] Minerva Shaver Work Phone: [facility] Start: 03-06-2022 End: 03-06-[address] Minerva Shaver Work Phone: [facility] Start: 02-27-2022 End: 02-27-[address] Minerva Shaver Work Phone: [facility] Start: 02-25-2022 Telephone encounter Minerva melgoza MD Work Phone: [facility] [place] Comment on above: Results Start: 02-22-2022 End: 02-22-2022 Patient encounter procedure Minerva Shaver MD Work Phone: [facility] [place] Comment on above: Sore throat (Primary Dx); Chills with fever; 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 Start: 02-06-2022 End: 02-06-[address] Minerva Shaver Work Phone: [facility] Start: 01-21-2022 End: 01-21-2022 Patient encounter procedure Minerva Shaver MD Work Phone: [facility] [place] Comment on above: Congestive heart gema lure, unspecified HF chronicity, unspecified heart failure type (HCC) (Primary Dx); Need for influenza vaccination; Frequency of urination; Primary hypertension; Generalized arthritis; Urinary tract infection without hematuria, site unspecified Start: 01-04-2022 Telephone encounter Mavis Saunders MD Work Phone: Gynecology Comment on above: Patient Update Post Op; Pain Start: 12-28-2021 Telephone encounter Trinidad Soto APRN.[employer] Work Phone: Pre Anesthesia Comment on above: Patient Update (Surg michael instructions) Start: 12-27-2021 End: 12-27-2021 Preprocedural examination done Us 2 Work Phone: Radiology Start: 12-27-2021 End: 12-27-2021 Subsequent hospital visit by physician [facility] Work Phone: Radiology Comment on above: Vaginal enterocele d ue to incomplete uterovaginal prolapse [N81.2] Start: 12-26-2021 Telephone encounter Qiana ontiveros MD Work Phone: Obstetrics/Gynecology Comment on above: Future Appointment Start: 12-24-2021 End: 12-24-2021 Telemedicine consultation with patient Irma Mana FRY Work Phone (unformatted): [phone] [facility] Start: 12-24-2021 End: 12-24-2021 Admission to establishment [facility] Work Phone: [facility] Start: 12-24-2021 End: 12-24-2021 ambulatory [facility] Work Phone: Pre Anesthesia Comment on above: Pre-operative examin ation (Primary Dx); 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 Minerva Shaver Work Phone: [facility] Start: 12-21-2021 End: 12-21-[address] Minerva Shaver Work Phone: 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; Rectocele; Preoperative examination; Overactive bladder Start: 12-07-2021 End: 12-07-2021 Preprocedural examination done Qiana Pizarro MD Work Phone: [facility] Start: 12-07-2021 End: 12-07-2021 Telemedicine consultation with patient Qiana Pizarro MD Work Phone: [facility] Start: 11-07-2021 ambulatory Minerva Lawson Work Phone: Internal Medicine [facility] Start: 10-15-2021 Telephone encounter Minerva melgoza MD Work Phone: [facility] Comment on above: Patient Update Start: 10-11-2021 End: 10-11-[address] Minerva Shaver Work Phone: [facility] Start: 09-21-2021 End: 09-21-2021 Patient encounter procedure Lindsay Zee MD Work Phone: OB/Gynecology Comment on above: Vaginal enterocele d ue to incomplete uterovaginal prolapse (Primary Dx) Start: 09-07-2021 Telephone encounter Dianna Ballard APRN.CNP Work Phone: [facility] Comment on above: Results Start: 05-02-2021 End: 05-02-2021 Subsequent hospital visit by physician [facility] Work Phone: Radiology Comment on above: Contusion of right f oot including toes, initial encounter [S90.31XA, S90.121A] Start: 02-09-[address] Yves Shaver Work Phone: [facility] Start: 02-09-[address] Minerva Shaver MD Work Phone: [facility] Start: 01-16-2021 End: 01-16-2021 Subsequent hospital visit by physician [facility] Work Phone: Radiology Comment on above: Neck pain [M54.2] Start: 06-05-2020 End: 06-05-2020 Subsequent hospital visit by physician [facility] Work Phone: Radiology Comment on above: Foot injury, left, i nitial encounter [U19.922A] Procedures Date Procedure Procedure Detail Performing Clinician Start: 10-08-2024 CARDIAC RHYTHM Other Other OT Start: 10-08-2024 DEVICE EVALUATION Other Other OT Start: 10-08-2024 CBC AND ELECTRONIC DIFF Anuel Cortes MD Work Phone: Start: 10-08-2024 Complete blood count with white cell differential, automated Anuel Cortes MD Work Phone: Start: 10-08-2024 Creatinine blood Anuel Cortes MD Work Phone: Start: 10-07-2024 Radiologic exam chest 2 views Landno Adhikari MD Work Phone: Start: 10-07-2024 Icar catheter ablation atrioventr node function Anuel Cortes MD Work Phone: Start: 10-07-2024 Ins new/rplcmt prm pacemakr w/trans eltrd atrial Anuel Cortes MD Work Phone: Start: 10-07-2024 Thromboplastin time partial plasma/whole blood Anuel Cortes MD Work Phone: Start: 10-07-2024 CBC AND ELECTRONIC DIFF Anuel Cortes MD Work Phone: Start: 10-07-2024 Complete blood count with white cell differential, automated Anuel Cortes MD Work Phone: Start: 10-07-2024 Prothrombin time Colin Castellanos MD Work Phone: Start: 10-06-2024 Thromboplastin time partial plasma/whole blood Anuel Cortes MD Work Phone: Start: 10-06-2024 Thromboplastin time partial plasma/whole blood Anuel Cortes MD Work Phone: Start: 10-06-2024 Creatinine blood Anuel Cortes MD Work Phone: Start: 10-05-2024 Creatinine blood Anuel Cortes MD Work Phone: Start: 10-04-2024 Assay of magnesium Anuel Cortes MD Work Phone: Start: 10-04-2024 Creatinine blood Anuel Cortes MD Work Phone: Start: 10-02-2024 Culture bct isol&prsmptv id isolate ea urine Taylor Mckee MD Work Phone: Start: 10-02-2024 EXTRA MICRO Taylor Mkcee MD Work Phone: Start: 10-02-2024 URINALYSIS REFLEX TO CULTURE Taylor flores MD Work Phone: Start: 10-01-2024 Bilirubin direct Taylor Mckee MD Work Phone: Start: 10-01-2024 CBC AND ELECTRONIC DIFF Taylor Lawson Work Phone: Start: 10-01-2024 Complete blood count with white cell differential, automated Taylor Mckee MD Work Phone: Start: 09-29-[address] Alcides Shaver MD Work Phone: Start: 09-29-2024 Evaluation of diagnostic study results Dr. Minerva Shaver MD Work Phone: Start: 09-25-2024 MRI of lumbar spine Dr. Minerva Shaver MD Work Phone: Start: 09-17-2024 Serum inorganic phosphate measurement Dr. Minerva Shaver MD Work Phone: Start: 08-17-2024 X-ray of cervical spine Dr. Minerva Shaver MD Work Phone: Start: 08-17-2024 X-ray of lumbosacral spine Dr. Minerva dejesus MD Work Phone: Start: 07-31-[address] Alcides Shaver MD Work Phone: Start: 07-29-2024 Plain x-ray of pelvis and lower extremity Dr. Minerva Shaver MD Work Phone: Start: 07-27-2024 Evaluation of diagnostic study results Dr. Minerva Shaver MD Work Phone: Start: 07-05-2024 Radiologic exam chest 2 views Nadir Gooden er PA-C Work Phone: Start: 05-25-[address] Alcides Shaver MD Work Phone: Start: 05-25-2024 Measurement of renal function Dr. Minerva Shaver MD Work Phone: Comment on above: GFR Calc Start: 04-22-2024 Cardioversion elective arrhythmia external Alli Hernandez MD Work Phone: Start: 04-22-2024 Ephys evl trnsptl tx atrial fib isolat pulm vein Alli Hernandez MD Work Phone: Start: 04-22-2024 End: 04-22-2024 ACT* LOW RANGE, POC Alli Hernandez MD Work Phone: Start: 04-22-2024 Prothrombin time Kala A Cascade [employer] RELATIONS COORDINATOR-[employer] Work Phone: Start: 04-22-2024 Ecg routine ecg w/least 12 lds w/i&r Kala A Cascade [employer] COORDINATOR[employer] Work Phone: Start: 04-21-2024 Ct heart contrast eval cardiac structure&morph Shola Workman MD Work Phone: Start: 04-19-2024 Evaluation of diagnostic study results Dr. Minerva Shaver MD Work Phone: Start: 04-17-2024 CARDIAC RHYTHM Other Other OT Start: 04-17-2024 Assay of magnesium Rica A Jazz PA-C Work Phone: Start: 04-17-2024 CBC AND ELECTRONIC DIFF Rica A Neme th PA-C Work Phone: Start: 04-17-2024 Complete blood count with white cell differential, automated Rica A Jazz PA-C Work Phone: Start: 04-16-2024 Assay of magnesium Rica A Jazz PA-C Work Phone: Start: 04-16-2024 CBC AND ELECTRONIC DIFF Rica A Neme th PA-C Work Phone: Start: 04-16-2024 Complete blood count with white cell differential, automated Rica A Jazz PA-C Work Phone: Start: 04-15-2024 Cardioversion elective arrhythmia external Landon Adhikari MD Work Phone: Start: 04-15-2024 Assay of magnesium Rica A Jazz PA-C Work Phone: Start: 04-15-2024 CBC AND ELECTRONIC DIFF Rica A Neme th PA-C Work Phone: Start: 04-15-2024 Complete blood count with white cell differential, automated Rica A Jazz PA-C Work Phone: Start: 04-14-2024 TTE w yasmani gonzalez,Doppler Toña Persaud MD Work Phone: Start: 04-14-2024 Assay of magnesium Rica A Jazz PA-C Work Phone: Start: 04-14-2024 CBC AND ELECTRONIC DIFF Rica A Neme th PA-C Work Phone: Start: 04-14-2024 Complete blood count with white cell differential, automated Rica A Jazz PA-C Work Phone: Start: 04-13-2024 Thromboplastin time partial plasma/whole blood Rica A Jazz PA-C Work Phone: Start: 04-13-2024 Cardioversion elective arrhythmia external Landon Adhikari MD Work Phone: Start: 04-13-2024 CBC AND ELECTRONIC DIFF Rica A Neme th PA-C Work Phone: Start: 04-13-2024 Complete blood count with white cell differential, automated Rica A Jazz PA-C Work Phone: Start: 04-13-2024 Thromboplastin time partial plasma/whole blood Rica Tee Jazz PA-C Work Phone: Start: 04-13-2024 Radiologic exam chest single view Kevin Tee Jazz PA-C Work Phone: Start: 04-13-2024 Bilirubin direct Rica A Jazz PA-C Work Phone: Start: 04-13-2024 CBC AND ELECTRONIC DIFF Rica Tee Neme th PA-C Work Phone: Start: 04-13-2024 Complete blood count with white cell differential, automated Rica Tee Jazz PA-C Work Phone: Start: 04-13-2024 Lipid panel Rica Tee Jazz PA-C Work Phone: Start: 04-12-2024 Ecg routine ecg w/least 12 lds trcg only w/o i&r Rica Nay Jazz PA-C Work Phone: Start: 04-12-2024 Plain chest X-ray Dr. Minerva Shaver MD Work Phone: Start: 12-15-2023 Brncdilat rspse spmtry pre&post-brncdilat admn Laith Montes MD Work Phone: Start: 09-05-2023 CT cervical spine without contrast Dr. Yves Shaver Work Phone: Start: 09-05-2023 CT of head without contrast Dr. Minerva ash Work Phone: Start: 08-18-2023 Gluc bld gluc mntr dev cleared fda spec home use Ok Walker MD Work Phone: Start: 08-18-2023 Esophagogastroduodenoscopy transoral diagnostic Katheryn Stokes MD Work Phone: Start: 08-15-2023 Plain x-ray of pelvis and lower extremity Dr. Minerva Shaver Work Phone: Start: 08-05-2023 Plain x-ray of pelvis and lower extremity Dr. Minerva Shaver Work Phone: Start: 04-02-2023 Plain x-ray of pelvis and lower extremity Dr. Minerva Shaver Work Phone: Start: 02-10-2023 INFLUENZA VACCINE, PRSV FREE, AGE 65+ YR, HIGH DOSE, QUADRIVALENT (FLUZONE HIGH-DOSE) Dianna Ballard ALUMNI RELATIONS COORDINATOR.[employer] Work Phone: Start: 01-27-2023 Co diffusing capacity Laith barrera MD Work Phone: Start: 01-23-2023 Radex shoulder complete minimum 2 views Dianna Ballard ALUMNI RELATIONS COORDINATOR.[employer] Work Phone: Start: 01-23-2023 Radiologic exam chest 2 views Dianna Ballard ALUMNI RELATIONS COORDINATOR.[employer] Work Phone: Start: 12-31-2022 Legionella pneumophila antigen assay Dr. Minerva Shaver Work Phone: Start: 12-31-[address] Minerva Shaver Work Phone: Start: 12-31-2022 Streptococcus pneumoniae Antigen (M Dr. Minerva Shaver Work Phone: Start: 12-31-2022 Plain chest X-ray Dr. Minerva Shaver Work Phone: Start: 12-26-2022 Ct abdomen & pelvis w/contrast material Dianna Ballard APRN.[employer] Work Phone: Start: 12-12-2022 Sars-cov-2 detection by dna/rna Dianna jacob ALUMNI RELATIONS COORDINATOR.[employer] Work Phone: Start: 12-12-2022 Radiologic exam chest 2 views Dianna Ballard ALUMNI RELATIONS COORDINATOR.[employer] Work Phone: Start: 12-12-2022 STREP A MOLECULAR (POC) Dianna Ballard ALUMNI RELATIONS COORDINATOR.C FORMULATOR Work Phone: Start: 09-26-2022 Radex spine lumbosacral 2/3 views Dianna stein ALUMNI RELATIONS COORDINATOR.[employer] Work Phone: Start: 08-09-2022 MRI of cervical spine Dr. Minerva Shaver Work Phone: Start: 08-09-2022 Magnetic resonance angiography of head without contrast Dr. Minerva Shaver Work Phone: Start: 08-09-2022 Magnetic resonance angiography of neck without contrast Dr. Minerva Shaver Work Phone: Start: 08-09-2022 MRI of brain without contrast Dr. Minerva Shaver Work Phone: Start: 08-08-2022 Plain chest X-ray Dr. Minerva Shaver Work Phone: Start: 08-08-2022 CT of head without contrast Dr. Minerva ash Work Phone: Start: 07-12-2022 Plain chest X-ray Dr. Minerva Shaver Work Phone: Start: 06-11-2022 Colonoscopy Minerva Shaver MD Work Phone: Start: 05-28-2022 Ct abdomen & pelvis w/o contrast material Katheryn Stokes MD Work Phone: Start: 05-15-2022 Radiologic exam chest 2 views Dianna Ballard APRN.[employer] Work Phone: Start: 05-15-2022 Urnls dip stick/tablet rgnt auto w/o microscopy Dianna Ballard APRN.[employer] Work Phone: Start: 05-10-2022 US scan of spleen Dr. Minerva Shaver Work Phone: Start: 05-10-[address] Minerva dejesus Work Phone: Start: 05-07-[address] Minerva Shaver Work Phone: Start: 04-27-2022 CT of chest without contrast Dr. Minerva Shaver Work Phone: Start: 04-27-2022 Plain chest X-ray Dr. Minerva Shaver Work Phone: Start: 04-18-2022 Radiologic exam chest 2 views Minerva melgoza MD Work Phone: Start: 04-08-2022 Cardiovascular stress test using pharmacologic stress agent Dr. Minerva Shaver Work Phone: Start: 04-02-2022 X-ray of lumbar spine, two or three views Dr. Minerva Shaver Work Phone: Start: 03-15-2022 Radiologic exam chest 2 views Dianna Ballard ALUMNI RELATIONS COORDINATOR.[employer] Work Phone: Start: 03-06-2022 Plain chest X-ray Dr. Minerva Shaver Work Phone: Start: 02-22-2022 STREP A MOLECULAR (POC) Minerva Shaver MD Work Phone: Start: 01-21-2022 Urnls dip stick/tablet rgnt auto w/o microscopy Minerva Shaver MD Work Phone: Start: 01-21-2022 INFLUENZA SEASONAL QUADRIVALENT HIGH DOSE AGE 65+ Minerva Shaver MD Work Phone: Start: 09-21-2021 Urnls dip stick/tablet rgnt auto w/o microscopy Lindsay Zee MD Work Phone: Start: 05-02-2021 Radex foot complete minimum 3 views Stephen Maradiaga MD Work Phone: Start: 04-30-2021 Adult depression screening assessment Dianna Ballard ALUMNI RELATIONS COORDINATOR.[employer] Work Phone: Start: 01-16-2021 Radex spine cervical 4 or 5 views Minerva Shaver MD Work Phone: Start: 06-05-2020 Radex ankle complete minimum 3 views Zayra Wolf PA-C Work Phone: Start: 01-19-2020 Lipid 1996 panel - Serum or Plasma Dianna O hussainer ALUMNI RELATIONS COORDINATOR.[employer] Work Phone: Start: 01-14-2019 Mammography Dianna Older ALUMNI RELATIONS COORDINATOR.[employer] Work Phone: Start: 11-22-2015 Colonoscopy Dianna Older ALUMNI RELATIONS COORDINATOR.[employer] Work Phone: H/O: surgery H/O neck surgery Dr. Minerva Shaver Work Phone: SARS-CoV-2 & FLU Antigen (Rapid) Dr. Minerva Shaver Work Phone: SARS-CoV-2 & FLU Antigen (Rapid) Dr. Minerva Shaver Work Phone: Plan of Treatment Date Care Activity Detail Author Start: 09-04-2033 Tetanus vaccination TETANUS [facility] Start: 09-04-2033 Urine microalbumin profile DTaP,Tdap,Td Vaccine (2 - Td or Tdap) [facility] Start: 06-11-2032 Screening for malignant neoplasm of colon [facility] Start: 07-08-2028 Tetanus vaccination Tetanus: Every 10yrs [facility] Start: 10-19-2027 Diabetes Screening Diabetes Screening [facility] Start: 10-09-2027 Diabetes Screening Diabetes Screening [facility] Start: 04-21-2027 Diabetes Screening Diabetes Screening [facility] Start: 04-17-2027 Diabetes Screening Diabetes Screening [facility] Start: 12-14-2026 Diabetes Screening Diabetes Screening [facility] Start: 12-26-2025 DIABETES SCREEN DIABETES SCREEN [facility] Start: 12-26-2025 Diabetes Screening Diabetes Screening [facility] Start: 12-12-2025 DIABETES SCREEN DIABETES SCREEN [facility] Start: 10-22-2025 Annual PCP Team Chronic Disease Visit Annual PCP Team Chronic Disease Visit [facility] Start: 10-08-2025 Potassium [Moles/volume] in Serum or Plasma POTASSIUM [facility] Start: 08-11-2025 Annual PCP Team Chronic Disease Visit Annual PCP Team Chronic Disease Visit [facility] Start: 07-22-2025 Annual PCP Team Chronic Disease Visit Annual PCP Team Chronic Disease Visit [facility] Start: 07-22-2025 Covid-19 Vaccine ( season) Covid-19 Vaccine () [facility] Comment on above: Postponed from 01/11/2024 (Declined at t his time) Start: 07-15-2025 Annual PCP Team Chronic Disease Visit Annual PCP Team Chronic Disease Visit [facility] Start: 07-15-2025 BP Controlled (<130/80) BP Controlled (<130/80) 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) Lung nodules Former cigarette smoker Expected: 05/02/2025, Expires: 07/17/2025 [facility] Work Phone: Comment on above: Expected: 05/02/2025, Expires: Start: 05-02-2025 End: 05-02-2025 Patient encounter procedure 05/02/2025 11:00 AM EST Appointment Cat Scan [address] [place], [place] [address] 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 Start: 03-15-2025 DIABETES SCREEN DIABETES SCREEN [facility] Start: 03-02-2025 End: 03-02-2025 Patient encounter procedure 03/02/2025 1:30 PM EDT Office [facility] [address] [place] [id number] Erlinda Casey, ALUMNI RELATIONS COORDINATOR-[employer] [address] [place] [address] [facility] [place] Start: 01-18-2025 Lipid 1996 panel - Serum or Plasma Lipid Screening [facility] Start: 01-18-2025 Lipid panel Lipid Screening [facility] Start: 01-18-2025 LIPID SCREEN LIPID SCREEN [facility] Start: 12-31-2024 Annual PCP Team Chronic Disease Visit Annual PCP Team Chronic Disease Visit [facility] Start: 12-24-2024 DIABETES SCREEN DIABETES SCREEN [facility] Start: 12-14-2024 BP Controlled (<130/80) BP Controlled (<130/80) [facility] Start: 12-03-2024 End: 12-03-2024 Patient encounter procedure 12/03/2024 11:00 AM EDT Office Visit [facility] [address] [place] [address] Dianna Ballard APRN.[employer] [address] [place] [address] 6 week follow up [facility] Comment on above: 6 week follow up Start: 11-02-2024 End: 11-02-2024 Patient encounter procedure 11/02/2024 10:00 AM EDT Office Visit [employer] [facility] [address] [place] [id number] [employer] Machine [facility] Start: 10-22-2024 End: 01-21-2025 Urinalysis complete panel - Urine URINALYSIS (WITH MICROSCOPIC) WITH CULTURE IF INDICATED Lab Routine Urinary tract infection without hematuria, site unspecified Expected: 10/22/2024, Expires: 01/21/2025 [facility] Work Phone: Comment on above: Expected: 10/22/2024, Expires: Start: 10-22-2024 End: 10-22-2024 Patient encounter procedure Internal Med [facility] Comment on above: 3 month follow up 3 month follow up - Recent Hosp D/C - [facility] Start: 10-22-2024 End: 10-22-2024 Patient encounter procedure 10/22/2024 8:20 AM EDT Office Visit [facility] [place] [address] [place] [address] OlderDianna APRN.[employer] [address] [place] [address] 3 month follow up - Recent Hosp D/[facility] - [facility] Comment on above: 3 month follow up - Recent [facility] Start: 10-05-2024 End: 01-04-2025 Basic metabolic 2000 panel - Serum or Plasma BASIC METABOLIC PANEL Lab Routine CHF (congestive heart failure) (HCC) Expected: 10/05/2024, Expires: 01/04/2025 [facility] Work Phone: Comment on above: Expected: 10/05/2024, Expires: Start: 10-05-2024 End: 01-04-2025 CBC panel - Blood by Automated count COMPLETE BLOOD COUNT Lab Routine Medication management Expected: 10/05/2024, Expires: 01/04/2025 [facility] Comment on above: Expected: 10/05/2024, Expires: Start: 10-05-2024 End: 01-04-2025 Magnesium [Mass/volume] in Serum or Plasma MAGNESIUM Lab Routine Medication management Expected: 10/05/2024, Expires: 01/04/2025 [facility] Comment on above: Expected: 10/05/2024, Expires: Start: 09-30-2024 Patient discharge [facility] Start: 09-29-2024 Evaluation of diagnostic study results 12 Lead EKG performed by [facility] Start: 09-28-2024 Annual PCP Team Chronic Disease Visit Annual PCP Team Chronic Disease Visit [facility] Start: 09-28-2024 BP Controlled (<130/80) BP Controlled (<130/80) [facility] Start: 09-25-2024 MR Lumbar spine [facility] Start: 09-25-2024 MRI of lumbar spine Spine Lumbar (Routine) [facility] Start: 09-06-2024 DIABETES SCREEN DIABETES SCREEN [facility] Start: 08-22-2024 End: 08-21-2025 XR Chest PA and Lateral XR CHEST 2V FRONTAL/LAT Radiology Routine Pneumonia of right upper lobe due to infectious organism Expected: 08/22/2024 (Approximate), Expires: 08/21/2025 [facility] Work Phone: Comment on above: Expected: 08/22/2024 (Approximate), Expi res: 08/21/2025 Start: 08-11-2024 End: 08-11-2024 Patient encounter procedure [facility] [place] Comment on above: Vertigo Start: 08-01-[address] [facility] Start: 07-22-2024 End: 07-22-2024 Patient encounter procedure 07/22/2024 9:40 AM EDT Office Visit [facility] [address] [place] [address] Dianna Ballard, ALUMNI RELATIONS COORDINATOR.[employer] [address] [place] [address] 1 week follow up [facility] Comment on above: 1 week follow up Start: 07-15-2024 End: 07-15-2024 Patient encounter procedure 07/15/2024 1:40 PM EST Office Visit [facility] [place] [address] [place] [address] Dianna Ballard, ALUMNI RELATIONS COORDINATOR.[employer] [address] [place] [address] 1 week follow up [facility] [place] Comment on above: 1 week follow up Start: 07-15-2024 End: 07-15-2024 Patient encounter procedure 07/15/2024 10:40 AM EST Office Visit [facility] [place] [address] [place] [address] Dianna Ballard, ALUMNI RELATIONS COORDINATOR.[employer] [address] [place] [address] Visit to urgent care July 05 pneumonia [facility] [place] Comment on above: Visit to urgent care July 05 pneumon ia Start: 07-08-2024 End: 07-08-2024 Patient encounter procedure 07/08/2024 9:40 AM EST Office Visit [facility] [place] [address] [place], [place] [id number] Dianna Ballard APRN.[employer] [address] [place] [address] Visit to urgent care July 05 pneumonia [facility] [place] Comment on above: Visit to urgent care July 05 pneumon ia Start: 07-06-2024 End: 07-06-2024 Patient encounter procedure 07/06/2024 11:40 AM EST Appointment Cat Scan [address] [place], [place] [id number] Lung nodules [R91.8]; Centrilobular emphysema (HCC) [J43.2]; Former cigarette smoker [Z87.891] Cat Scan Comment on above: Lung nodules [R91.8]; Centrilobular emph ysema (HCC) [J43.2]; Former cigarette smoker [Z87.891] Start: 06-30-2024 Annual PCP Team Chronic Disease Visit Annual PCP Team Chronic Disease Visit [facility] Start: 06-30-2024 BP Controlled (<130/80) BP Controlled (<130/80) [facility] Start: 06-17-2024 End: 06-17-2024 Patient encounter procedure 06/17/2024 10:00 AM EST Office Visit Pulmonary Medicine [address] [place], [place] [phone] Laith Montes MD [address] [place], [place] [id number] 6 month f/u Pulmonary Medicine Comment on above: 6 month f/u Start: 06-11-2024 Colonoscopy COLONOSCOPY [facility] Start: 06-11-2024 COLORECTAL CANCER SCREENING COLORECTAL CANCER SCREENING [facility] Start: 06-11-2024 Screening for malignant neoplasm of colon [facility] Start: 06-03-2024 End: 04-22-2025 Cardiac telemetry MOBILE CARDIAC TELEMETRY ECG Routine Persistent atrial fibrillation Expected: 06/03/2024, Expires: 04/22/2025 [facility] Comment on above: Expected: 06/03/2024, Expires: Start: 05-26-[address] [facility] Start: 05-12-2024 Advance Directive Discussion Advance Directive Discussion [facility] Start: 05-12-2024 Medicare Advantage Annual Wellness Visit Medicare Advantage Annual Wellness Visit [facility] Start: 04-29-2024 End: 04-29-2024 Patient encounter procedure 04/29/2024 2:20 PM EST Office Visit [facility] [place] [address] [place], [place] [phone] Minerva Shaver MD [address] [place], [place] [phone] april follow up after ablation procedure [facility] Comment on above: april follow up after ablation proced ure Start: 04-22-2024 End: 04-22-2024 Ephys evl trnsptl tx atrial fib isolat pulm vein [facility] Start: 04-22-2024 End: 04-22-2024 Admission to same day surgery center 04/22/2024 8:15 AM EST - 04/22/2024 11:05 AM EST Surgery Cardiovascular Imaging Lab [facility] [address] [place] [address] Alli Hernandez MD [address] [place] [address] ABLATION SCHED INTERCARDIAC A-FIB TRANSEPTAL BY PULM VE) Cardiovascular Imaging Lab [facility] Comment on above: ABLATION SCHED INTERCARDIAC A-FIB TRANSE PTAL BY PULM VE) Start: 04-22-2024 Subsequent hospital visit by physician 04/22/2024 8:15 AM EST Hospital Encounter [facility] [address] [place] [address] Alli Hernandez MD [address] [place] [address] Persistent atrial fibrillation [facility] Comment on above: Persistent atrial fibrillation Start: 04-21-2024 End: 04-21-2024 Patient encounter procedure [facility] Start: 04-20-2024 End: 04-20-2024 Telemedicine consultation with patient 04/20/2024 9:30 AM EST Telemedicine [facility] [address] [place] [phone] [facility] Start: 04-12-[address] [facility] Start: 04-12-[address] [facility] Start: 04-02-2024 End: 04-02-2024 Patient encounter procedure 04/02/2024 10:00 AM EST Office Visit [facility] [place] [address] [place] [address] Minerva Shaver MD [address] [place] [address] Medicare Wellness [facility] Comment on above: Medicare Wellness Start: 03-31-2024 Annual PCP Team Chronic Disease Visit Annual PCP Team Chronic Disease Visit [facility] Start: 03-31-2024 BP Controlled (<130/80) BP Controlled (<130/80) [facility] Start: 03-31-2024 RSV Vaccine (1 - 1-dose 60+ series) RSV Vaccine (1 - 1-dose 60+ series) [facility] Comment on above: Postponed from 2007 (Declined at t his time) Start: 03-31-2024 RSV Vaccine (1 - 1-dose 75+ series) RSV Vaccine (1 - 1-dose 75+ series) [facility] Comment on above: Postponed from 2022 (Declined at t his time) Start: 03-17-2024 Annual PCP Team Chronic Disease Visit Annual PCP Team Chronic Disease Visit [facility] Start: 03-04-2024 Annual PCP Team Chronic Disease Visit Annual PCP Team Chronic Disease Visit [facility] Start: 02-11-2024 Annual PCP Team Chronic Disease Visit Annual PCP Team Chronic Disease Visit [facility] Start: 02-11-2024 Covid-19 Vaccine ( season) Covid-19 Vaccine ( season) [facility] Comment on above: Postponed from 01/10/2023 (Declined at t his time) Start: 02-11-2024 Covid-19 Vaccine (4 - Moderna series) Covid-19 Vaccine (4 - Moderna series) [facility] Comment on above: Postponed from 05/18/2021 (Declined at t his time) Start: 02-11-2024 Shingrix Vaccine (3 of 3) Shingrix Vaccine (3 of 3) [facility] Comment on above: Postponed from 11/14/2021 (Declined at t his time) Start: 02-11-2024 Urine microalbumin profile DTaP,Tdap,Td Vaccine (1 - Tdap) [facility] Comment on above: Postponed from 07/09/2018 (Declined at t his time) Start: 02-11-2024 Zoledronic acid therapy Alpha-1 Antitrypsin Deficiency Screening [facility] Comment on above: Postponed from 1977 (Declined at t his time) Start: 01-24-2024 Annual PCP Team Chronic Disease Visit Annual PCP Team Chronic Disease Visit [facility] Start: 01-11-2024 ANNUAL PCP TEAM CHRONIC DISEASE VISIT ANNUAL PCP TEAM CHRONIC DISEASE VISIT [facility] Start: 01-11-2024 Covid-19 Vaccine ( season) Covid-19 Vaccine ( season) [facility] Start: 01-11-2024 Covid-19 Vaccine ( season) Covid-19 Vaccine ( season) [facility] Start: 01-11-2024 [facility] Start: 01-04-2024 ANNUAL PCP TEAM CHRONIC DISEASE VISIT ANNUAL PCP TEAM CHRONIC DISEASE VISIT [facility] Start: 01-01-2024 End: 01-01-2024 Patient encounter procedure 01/01/2024 10:40 AM EDT Office Visit [facility] [place] [address] [place] [address] Dianna Ballard APRN.[employer] [address] [facility] [place] [address] 3 month follow up- labs [facility] [place] Comment on above: 3 month follow up- labs Start: 12-29-2023 FECAL OCCULT BLOOD FECAL OCCULT BLOOD [facility] Start: 12-29-2023 Screening for malignant neoplasm of colon Fecal Occult Blood [facility] Start: 12-27-2023 ANNUAL PCP TEAM CHRONIC DISEASE VISIT ANNUAL PCP TEAM CHRONIC DISEASE VISIT [facility] Start: 12-15-2023 End: 12-15-2023 Patient encounter procedure 12/15/2023 9:30 AM EDT Office Visit Pulmonary Medicine [address] [place] [address] Laith Montes MD [address] [place] [address] 6 mth follow up Pulmonary Medicine Comment on above: 6 mth follow up Start: 12-15-2023 End: 12-15-2023 ambulatory 12/15/2023 9:00 AM EDT Procedure [facility] [address] [place] [address] Wstr, [facility] [address] [place] [address] 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] [facility] Comment on above: Moderate COPD (chronic obstructive pulmo nary disease) (HCC) [J44.9] Start: 12-13-2023 ANNUAL PCP TEAM CHRONIC DISEASE VISIT ANNUAL PCP TEAM CHRONIC DISEASE VISIT [facility] Start: 11-01-2023 ANNUAL PCP TEAM CHRONIC DISEASE VISIT ANNUAL PCP TEAM CHRONIC DISEASE VISIT [facility] Start: 10-05-2023 ANNUAL PCP TEAM CHRONIC DISEASE VISIT ANNUAL PCP TEAM CHRONIC DISEASE VISIT [facility] Start: 09-29-2023 End: 12-29-2023 CBC panel - Blood by Automated count COMPLETE BLOOD COUNT Lab Routine Paroxysmal atrial fibrillation (HCC) Congestive heart failure, unspecified HF chronicity, unspecified heart failure type (HCC) Primary hypertension Expected: 09/29/2023, Expires: 12/29/2023 [facility] Comment on above: Expected: 09/29/2023, Expires: Start: 09-29-2023 End: 12-29-2023 Comprehensive metabolic 2000 panel - Serum or Plasma COMPREHENSIVE METABOLIC PANEL Lab Routine Paroxysmal atrial fibrillation (HCC) Congestive heart failure, unspecified HF chronicity, unspecified heart failure type (HCC) Primary hypertension Lipid screening Expected: 09/29/2023, Expires: 12/29/2023 [facility] Comment on above: Expected: 09/29/2023, Expires: Start: 09-29-2023 End: 12-29-2023 Lipid 1996 panel - Serum or Plasma LIPID PANEL BASIC Lab Routine Lipid screening Expected: 09/29/2023, Expires: 12/29/2023 [facility] Work Phone: Comment on above: Expected: 09/29/2023, Expires: Start: 09-29-2023 End: 09-29-2023 Patient encounter procedure 09/29/2023 11:40 AM EDT Office Visit [facility] [address] [place] [address] Dianna Ballard APRN.[employer] [address] [place] [address] 3 month follow up [facility] Comment on above: 3 month follow up Start: 09-05-[address] [facility] Start: 09-04-2023 BP CONTROLLED (<130/80) BP CONTROLLED (<130/80) [facility] Start: 08-30-2023 ANNUAL PCP TEAM CHRONIC DISEASE VISIT ANNUAL PCP TEAM CHRONIC DISEASE VISIT [facility] Start: 08-30-2023 BP CONTROLLED (<130/80) BP CONTROLLED (<130/80) [facility] Start: 07-19-2023 BP CONTROLLED (<130/80) BP CONTROLLED (<130/80) [facility] Start: 07-04-2023 Patient discharge [facility] Start: 06-30-2023 End: 09-29-2023 CBC panel - Blood by Automated count CBC Lab Routine Chronic congestive heart failure, unspecified heart failure type (HCC) Paroxysmal atrial fibrillation (HCC) History of CVA (cerebrovascular accident) Expected: 06/30/2023, Expires: 09/29/2023 [facility] Work Phone: Comment on above: Expected: 06/30/2023, Expires: 4 Start: 06-30-2023 End: 09-29-2023 Comprehensive metabolic 2000 panel - Serum or Plasma COMP METABOLIC PANEL Lab Routine Chronic congestive heart failure, unspecified heart failure type (HCC) Paroxysmal atrial fibrillation (HCC) History of CVA (cerebrovascular accident) Expected: 06/30/2023, Expires: 09/29/2023 [facility] Work Phone: Comment on above: Expected: 06/30/2023, Expires: Start: 06-30-2023 End: 09-29-2023 Lipid 1996 panel - Serum or Plasma LIPID PANEL BASIC Lab Routine Chronic congestive heart failure, unspecified heart failure type (HCC) History of CVA (cerebrovascular accident) Expected: 06/30/2023, Expires: 09/29/2023 [facility] Work Phone: Comment on above: Expected: 06/30/2023, Expires: 4 Start: 06-18-2023 ANNUAL PCP TEAM CHRONIC DISEASE VISIT ANNUAL PCP TEAM CHRONIC DISEASE VISIT [facility] Start: 06-08-2023 ANNUAL PCP TEAM CHRONIC DISEASE VISIT ANNUAL PCP TEAM CHRONIC DISEASE VISIT [facility] Start: 05-23-2023 BP CONTROLLED (<130/80) BP CONTROLLED (<130/80) [facility] Start: 05-22-2023 ANNUAL PCP TEAM CHRONIC DISEASE VISIT ANNUAL PCP TEAM CHRONIC DISEASE VISIT [facility] Start: 05-22-2023 BP CONTROLLED (<130/80) BP CONTROLLED (<130/80) [facility] Start: 05-15-2023 ANNUAL PCP TEAM CHRONIC DISEASE VISIT ANNUAL PCP TEAM CHRONIC DISEASE VISIT [facility] Start: 05-12-2023 Behavioral Health Screening Behavioral Health Screening [facility] Start: 04-29-2023 ANNUAL PCP TEAM CHRONIC DISEASE VISIT ANNUAL PCP TEAM CHRONIC DISEASE VISIT [facility] Start: 04-29-2023 BP CONTROLLED (<130/80) BP CONTROLLED (<130/80) [facility] Start: 04-26-2023 ANNUAL PCP TEAM CHRONIC DISEASE VISIT ANNUAL PCP TEAM CHRONIC DISEASE VISIT [facility] Start: 04-18-2023 ANNUAL PCP TEAM CHRONIC DISEASE VISIT ANNUAL PCP TEAM CHRONIC DISEASE VISIT [facility] Start: 03-18-2023 ANNUAL PCP TEAM CHRONIC DISEASE VISIT ANNUAL PCP TEAM CHRONIC DISEASE VISIT [facility] Start: 03-08-2023 ANNUAL PCP TEAM CHRONIC DISEASE VISIT ANNUAL PCP TEAM CHRONIC DISEASE VISIT [facility] Start: 02-22-2023 ANNUAL PCP TEAM CHRONIC DISEASE VISIT ANNUAL PCP TEAM CHRONIC DISEASE VISIT [facility] Start: 02-22-2023 BP CONTROLLED (<130/80) BP CONTROLLED (<130/80) [facility] Start: 01-21-2023 ANNUAL PCP TEAM CHRONIC DISEASE VISIT ANNUAL PCP TEAM CHRONIC DISEASE VISIT [facility] Start: 01-10-2023 Influenza vaccination [facility] Start: 01-03-2023 End: 03-05-2023 Basic metabolic 2000 panel - Serum or Plasma BASIC METABOLIC PNL Lab Routine Congestive heart failure, unspecified HF chronicity, unspecified heart failure type (HCC) Function kidney decreased Expected: 01/03/2023, Expires: 03/05/2023 [facility] Work Phone: Comment on above: Expected: 01/03/2023, Expires: 3 Start: 01-03-2023 End: 03-05-2023 CBC panel - Blood by Automated count CBC Lab Routine Congestive heart failure, unspecified HF chronicity, unspecified heart failure type (HCC) Function kidney decreased Expected: 01/03/2023, Expires: 03/05/2023 [facility] Work Phone: Comment on above: Expected: 01/03/2023, Expires: 3 Start: 01-02-2023 Patient discharge [facility] Start: 01-02-[address] [facility] Start: 01-01-2023 Physiotherapy of chest [facility] Start: 12-31-2022 Electrocardiographic procedure [facility] Start: 12-31-2022 Thyroid stimulating hormone measurement [facility] Start: 12-31-[address] [facility] Start: 12-31-2022 Following clinical pathway protocol [facility] Start: 12-31-2022 Application of elastic bandage [facility] Start: 12-31-2022 Assessment of risk of venous thromboembolism [facility] Start: 12-31-2022 Catheterization of vein [facility] Start: 12-31-2022 Elevation of affected extremity [facility] Start: 12-31-2022 Incentive spirometry [facility] Start: 12-31-2022 Insertion of catheter into peripheral vein [facility] Start: 12-31-2022 Legionella pneumophila Ag [Presence] in Urine [facility] Start: 12-31-2022 Measuring intake and output [facility] Start: 12-31-2022 Notification of physician [facility] Start: 12-31-2022 Oxygen therapy [facility] Start: 12-31-2022 Patient education [facility] Start: 12-31-2022 Providing care according to standard [facility] Start: 12-31-2022 Provision of activity privileges [facility] Start: 12-31-2022 Referral to occupational therapist [facility] Start: 12-31-2022 Referral to service [facility] Start: 12-31-2022 Respiratory therapy [facility] Start: 12-31-2022 Streptococcus pneumoniae antigen assay [facility] Start: 12-31-2022 Taking nasal swab [facility] Start: 12-31-[address] [facility] Start: 12-31-2022 Bacteria identified in Sputum by Culture [facility] Start: 12-31-2022 SARS-CoV-2 (COVID-19) Ag [Presence] in Respiratory specimen by Rapid immunoassay [facility] Start: 12-31-2022 Respiratory pathogens DNA and RNA panel - Respiratory specimen by NANI with probe detection [facility] Start: 12-31-2022 Verification routine [facility] Start: 12-31-2022 Admission procedure [facility] Start: 12-31-2022 Continuous pulse oximetry [facility] Start: 12-31-2022 Dual pressure spontaneous ventilation support [facility] Start: 12-24-2022 BP CONTROLLED (<130/80) BP CONTROLLED (<130/80) [facility] Start: 12-03-2022 BP CONTROLLED (<130/80) BP CONTROLLED (<130/80) [facility] Start: 10-10-2022 ANNUAL PCP TEAM CHRONIC DISEASE VISIT ANNUAL PCP TEAM CHRONIC DISEASE VISIT [facility] Start: 08-11-2022 Patient discharge [facility] Start: 08-08-2022 Following clinical pathway protocol [facility] Start: 08-08-2022 Assessment of risk of venous thromboembolism [facility] Start: 08-08-2022 Cardiac monitoring [facility] Start: 08-08-2022 Catheterization of vein [facility] Start: 08-08-2022 Continuous pulse oximetry [facility] Start: 08-08-2022 Elevation of head of bed [facility] Start: 08-08-[address] [facility] Start: 08-08-2022 Implementation of planned interventions [facility] Start: 08-08-2022 Insertion of catheter into peripheral vein [facility] Start: 08-08-2022 Measuring intake and output [facility] Start: 08-08-2022 Notification of physician [facility] Start: 08-08-2022 Oxygen therapy [facility] Start: 08-08-2022 Patient referral to dietitian [facility] Start: 08-08-2022 Providing care according to standard [facility] Start: 08-08-2022 Provision of activity privileges [facility] Start: 08-08-2022 Referral to occupational therapist [facility] Start: 08-08-2022 Referral to service [facility] Start: 08-08-2022 Speech therapy assessment [facility] Start: 08-08-2022 Tobacco use cessation education [facility] Start: 08-08-[address] [facility] Start: 08-08-2022 Troponin I measurement [facility] Start: 08-08-2022 Admission procedure [facility] Start: 08-08-2022 Oxygen therapy [facility] Start: 08-08-2022 End: 08-08-[address] [facility] Start: 07-10-2022 ANNUAL PCP TEAM CHRONIC DISEASE VISIT ANNUAL PCP TEAM CHRONIC DISEASE VISIT [facility] Start: 07-10-2022 BP CONTROLLED (<130/80) BP CONTROLLED (<130/80) [facility] Start: 06-08-2022 End: 08-08-2022 25-hydroxyvitamin D3 [Mass/volume] in Serum or Plasma [facility] Work Phone: Comment on above: Expected: 06/08/2022, Expires: 3 Start: 06-08-2022 End: 08-08-2022 Amylase [Enzymatic activity/volume] in Serum or Plasma [facility] Work Phone: Comment on above: Expected: 06/08/2022, Expires: 3 Start: 06-08-2022 End: 08-08-2022 Cobalamin (Vitamin B12) [Mass/volume] in Serum or Plasma [facility] Work Phone: Comment on above: Expected: 06/08/2022, Expires: 3 Start: 06-08-2022 End: 08-08-2022 Lipase [Enzymatic activity/volume] in Serum or Plasma [facility] Work Phone: Comment on above: Expected: 06/08/2022, Expires: 3 Start: 06-08-2022 End: 08-08-2022 Urinalysis complete panel - Urine [facility] Work Phone: Comment on above: Expected: 06/08/2022, Expires: 3 Start: 2022 RSV Vaccine (1 - 1-dose 75+ series) RSV Vaccine (1 - 1-dose 75+ series) [facility] Start: 05-17-2022 End: 07-17-2022 Bacteria identified in Blood by Culture BLOOD CULTURE Microbiology Routine Fever, unspecified fever cause Expected: 05/17/2022, Expires: 07/17/2022 [facility] Work Phone: Comment on above: Expected: 05/17/2022, Expires: 3 Start: 05-12-2022 ADVANCE DIRECTIVE DISCUSSION ADVANCE DIRECTIVE DISCUSSION [facility] Start: 05-12-2022 DEPRESSION ASSESSMENT DEPRESSION ASSESSMENT [facility] Start: 04-30-2022 Adult depression screening assessment DEPRESSION SCREENING [facility] Start: 04-29-2022 End: 06-29-2022 CBC panel - Blood by Automated count [facility] Work Phone: Comment on above: Expected: 04/29/2022, Expires: 3 Start: 04-29-2022 End: 06-29-2022 Comprehensive metabolic 2000 panel - Serum or Plasma [facility] Work Phone: Comment on above: Expected: 04/29/2022, Expires: 3 Start: 04-27-[address] [facility] Start: 01-21-2022 End: 03-23-2022 Bacteria identified in Urine by Culture [facility] Work Phone: Comment on above: Expected: 01/21/2022, Expires: 2 Start: 01-10-2022 Influenza vaccination INFLUENZA (#1) [facility] Start: 11-14-2021 Administration of herpes zoster vaccine Zoster Vaccines (3 of 3) [facility] Start: 11-14-2021 SHINGRIX VACCINE (3 of 3) SHINGRIX VACCINE (3 of 3) [facility] Start: 11-14-2021 Zoster vaccine hzv live for subcutaneous use ZOSTER (SHINGLES) VACCINE (3 of 3) [facility] Start: 07-21-2021 COVID-19 VACCINE (4 - Booster for Moderna series) COVID-19 VACCINE (4 - Booster for Moderna series) [facility] Start: 05-18-2021 COVID-19 VACCINE (4 - Booster for Moderna series) COVID-19 VACCINE (4 - Booster for Moderna series) [facility] Start: 05-18-2021 COVID-19 VACCINE (4 - Moderna series) COVID-19 VACCINE (4 - Moderna series) [facility] Start: 05-12-2021 ADVANCE DIRECTIVE DISCUSSION ADVANCE DIRECTIVE DISCUSSION [facility] Start: 05-12-2021 DEPRESSION ASSESSMENT DEPRESSION ASSESSMENT [facility] Start: 01-15-2020 Mammography MAMMOGRAM [facility] Start: 01-15-2020 Screening for malignant neoplasm of breast MAMMOGRAM SCREENING DISCUSSION [facility] Start: 07-09-2018 Urine microalbumin profile [facility] Start: 11-21-2017 Colonoscopy COLONOSCOPY [facility] Start: 11-21-2017 COLORECTAL CANCER SCREENING COLORECTAL CANCER SCREENING [facility] Start: 11-21-2016 Screening for malignant neoplasm of colon COLORECTAL CANCER SCREENING DISCUSSION [facility] Start: 04-10-2016 Screening for malignant neoplasm of colon Fecal occult blood test (FOBT,FIT) [facility] Start: 04-07-2016 FECAL OCCULT BLOOD FECAL OCCULT BLOOD [facility] Start: 2012 Fall risk assessment Falls Risk Assessment [facility] Start: 02-19-2011 SHINGRIX VACCINE (2 of 3) SHINGRIX VACCINE (2 of 3) [facility] Start: 10-15-2010 Hepatitis B vaccination HEP B VACCINE (3 of 3 - 19+ 3-dose series) [facility] Start: 2007 RSV Vaccine (1 - 1-dose 60+ series) RSV Vaccine (1 - 1-dose 60+ series) [facility] Start: 1997 Screening for malignant neoplasm of colon Flexible sigmoidoscopy [facility] Start: 1992 COLOGUARD (FIT-DNA) COLOGUARD (FIT-DNA) [facility] Start: [address] COLONOGRAPHY [facility] Start: 1992 Screening for malignant neoplasm of colon [facility] Start: 1992 SIGMOIDOSCOPY SIGMOIDOSCOPY [facility] Start: 1987 Screening for malignant neoplasm of breast Mammogram [facility] Start: 1977 Zoledronic acid therapy ALPHA-1 ANTITRYPSIN DEFICIENCY SCREENING [facility] Start: 1968 Screening for malignant neoplasm of cervix CERVICAL CANCER SCREENING DISCUSSION [facility] Start: 1965 Anxiety Screening Anxiety Screening [facility] Start: 1965 BP CONTROLLED (<130/80) BP CONTROLLED (<130/80) [facility] Start: 1965 Depression Screening Depression Screening [facility] Start: 1965 Hepatitis C screening Hepatitis C Screening [facility] Start: 1965 SPIROMETRY SPIROMETRY [facility] Start: 1959 Depression screening using PHQ-9 (Patient Health Questionnaire 9) score Depression Screening (PHQ-2/9) [facility] Start: 1950 History and physical examination, annual for health maintenance Wellness Visit [facility] Start: 1947 Hepatitis C screening HEPATITIS C VIRUS SCREENING [facility] Start: 1947 Screening for malignant neoplasm of colon [facility] Start: 01-09-1948 Screening for osteoporosis [facility] Alanine aminotransfe rase [Enzymatic activity/volume] in Serum or Plasma [facility] Albumin [Mass/volume ] in Serum or Plasma [facility] Alkaline phosphatase [Enzymatic activity/volume] in Serum or Plasma [facility] Anion gap measurement [facility] Aspartate aminotrans ferase [Enzymatic activity/volume] in Serum or Plasma [facility] Bacteria identified in Urine by Culture URINE CULTURE Microbiology Routine Chills 06/08/2022 11:55 AM EST [facility] Work Phone: Bilirubin, total measurement [facility] BUN/Creatinine ratio [facility] Calcium [Mass/volume ] in Serum or Plasma [facility] Carbon dioxide, tota l [Moles/volume] in Serum or Plasma [facility] Chloride [Moles/volu me] in Serum or Plasma [facility] Clostridioides diffi cile toxin genes [Presence] in Stool by NANI with probe detection C. DIFFICILE PCR Lab Routine Right lower quadrant abdominal pain Left lower quadrant abdominal pain Blood in stool Bowel habit changes Stool mucus Dark stools Ordered: 12/26/2022 [facility] Work Phone: Comment on above: Ordered: 12/26/2022 COVID & INFLUENZA A/ B & RSV PCR, ROUTINE COVID & INFLUENZA A/B & RSV PCR, ROUTINE Microbiology Routine Acute cough Ordered: 06/22/2024 [facility] Work Phone: Comment on above: Ordered: 06/22/2024 Creatinine [Moles/vo lume] in Serum or Plasma [facility] End: 06-22-2023 Ct abdomen & pelvis w/o contrast material CT ABD/PEL WO IVCON Radiology Routine Hiatal hernia with GERD without esophagitis Personal history of colonic polyps 1 Occurrences starting 05/23/2022 until 06/22/2023 [facility] Work Phone: Comment on above: 1 Occurrences starting 05/23/2022 until 06/22/2023 End: 07-22-2025 CT Chest WO contrast CT CHEST WO IVCON Radiology Routine Lung nodules Centrilobular emphysema (HCC) Former cigarette smoker 1 Occurrences starting 06/22/2024 until 07/22/2025 [facility] Work Phone: Comment on above: 1 Occurrences starting 06/22/2024 until 07/22/2025 CT Chest WO contrast CT CHEST WO IVCON Radiology Routine Lung nodules Centrilobular emphysema (HCC) Former cigarette smoker 07/06/2024 12:18 PM EST [facility] Work Phone: End: 01-24-2024 ECG COMPLETE ECG COMPLETE ECG Routine Atrial fibrillation, unspecified type (HCC) Bradycardia 1 Occurrences starting 01/23/2023 until 01/24/2024 [facility] Work Phone: Comment on above: 1 Occurrences starting 01/23/2023 until 01/24/2024 End: 05-23-2023 EGD DIAGNOSTIC EGD DIAGNOSTIC Endoscopy Routine Hiatal hernia with GERD without esophagitis Personal history of colonic polyps 1 Occurrences starting 05/23/2022 until 05/23/2023 [facility] Work Phone: Comment on above: 1 Occurrences starting 05/23/2022 until 05/23/2023 Electrophysiology study EP PROCE DURE - EPS/ABLATION/DEVICE Electrophysiology Routine Persistent atrial fibrillation 04/22/2024 10:30 [facility] PA ERIC BY PCR ENTERIC BACTERIAL PANEL BY PCR Lab Routine Right lower quadrant abdominal pain Left lower quadrant abdominal pain Blood in stool Bowel habit changes Stool mucus Dark stools Ordered: 12/26/2022 [facility] Work Phone: Comment on above: Ordered: 12/26/2022 External electrode cardioversion EP CARDIOVERSION EXTERNAL Electrophysiology Routine Persistent atrial fibrillation 04/22/2024 10:30 AM EST [facility] FECAL LACTOFERRIN/LEUKOCYTES FECAL LACTOFERRIN/LEUKOCYTES Lab Routine Right lower quadrant abdominal pain Left lower quadrant abdominal pain Blood in stool Bowel habit changes Stool mucus Dark stools Ordered: 12/26/2022 [facility] Work Phone: Comment on above: Ordered: 12/26/2022 Glucose [Mass/volume ] in Serum or Plasma [facility] Hematocrit [Volume Fraction] of Blood [facility] Hemoglobin [Mass/vol ume] in Blood [facility] Hemoglobin.gastroint estinal .lower [Presence] in Stool by Immunoassay FECAL OCCULT BLOOD TEST Lab Routine Right lower quadrant abdominal pain Left lower quadrant abdominal pain Blood in stool Bowel habit changes Stool mucus Dark stools Ordered: 12/26/2022 [facility] Work Phone: Comment on above: Ordered: 12/26/2022 Influenza virus A an d B RNA and SARS-CoV-2 (COVID-19) N gene panel - Respiratory specimen by NANI with probe detection COVID WITH FLUA+B, ROUTINE Microbiology Routine Sore throat Chills with fever 02/22/2022 3:21 PM EDT [facility] Work Phone: End: 10-07-2024 Interrogation of cardiac pacemaker PACEMAKER/ICD INTERROGATION Cardiac Services Routine One Time for 1 Occurrences starting 10/07/2024 until 10/07/2024 [facility] Comment on above: One Time for 1 Occurrences starting 09/10 until 10/07/2024 Leukocytes [#/volume ] in Blood [facility] Magnesium [Mass/volu me] in Serum or Plasma [facility] Mean corpuscular hem oglobin concentration determination [facility] Mean corpuscular hem oglobin determination [facility] Measurement of renal function [facility] MR Lumbar spine [facility] Neutrophil count [facility] Neutrophil percent differential count [facility] OXIMETRY - NOCTURNAL OXIMETRY - NOCTURNAL Procedures Routine Stage 3 severe COPD by GOLD classification ([facility]) Ordered: 01/27/2023 [facility] Work Phone: Comment on above: Ordered: 01/27/2023 Patient Education [facility] Work Phone: Patient referral [facility] Work Phone: Platelets [#/volume] in Blood [facility] Potassium [Moles/vol ume] in Serum or Plasma [facility] End: 09-04-2023 PVR LEG W/EXC [facility] PVR LEG W/EXC [facility] Vascular Lab Routine Peripheral arterial disease (HCC) 1 Occurrences starting 09/03/2022 until 09/04/2023 [facility] Work Phone: Comment on above: 1 Occurrences starting 09/03/2022 until 09/04/2023 End: 05-29-2023 Radiologic exam swallow function contrast study XR MODIFIED BARIUM SWALLOW W SPEECH THERAPY Radiology Routine Hiatal hernia with GERD without esophagitis 1 Occurrences starting 04/29/2022 until 05/29/2023 [facility] Work Phone: Comment on above: 1 Occurrences starting 04/29/2022 until 05/29/2023 Radionuclide imaging of perfusion of myocardium under exercise stress [facility] Work Phone: RAPID STREP TEST B/O RAPID STREP TEST B/O Lab Routine Fever, unspecified fever cause Sore throat Ordered: 12/12/2022 [facility] Work Phone: Comment on above: Ordered: 12/12/2022 Red blood cell count [facility] Red cell distributio n width determination [facility] SARS-CoV-2 (COVID-19 ) RNA [Presence] in Respiratory specimen by NANI with probe detection 2019 CORONAVIRUS Microbiology Routine Sore throat Chills with fever Ordered: 02/22/2022 [facility] Work Phone: Comment on above: Ordered: 02/22/2022 End: 05-23-2023 Screening colonoscopy COLONOSCOPY SCREENING Endoscopy Routine Hiatal hernia with GERD without esophagitis Personal history of colonic polyps 1 Occurrences starting 05/23/2022 until 05/23/2023 [facility] Work Phone: Comment on above: 1 Occurrences starting 05/23/2022 until 05/23/2023 End: 12-07-2022 Screening mammography bi 2-view breast inc cad CLARIBEL SCREENING Radiology Routine Encounter for screening mammogram for breast cancer 1 Occurrences starting 11/07/2021 until 12/07/2022 [facility] Work Phone: Comment on above: 1 Occurrences starting 11/07/2021 until 12/07/2022 Sodium [Moles/volume ] in Serum or Plasma [facility] SPIROMETRY WITH DILA TOR IF OBSTRUCTED SPIROMETRY WITH DILATOR IF OBSTRUCTED PFT Routine Moderate COPD (chronic obstructive pulmonary disease) (HCC) 12/15/2023 9:02 AM EDT [facility] Work Phone: End: 10-01-2024 Standard ECG ECG ECG Routine One Time for 1 Occurrences starting 10/01/2024 until 10/01/2024 [facility] Comment on above: One Time for 1 Occurrences starting 09/10 until 10/01/2024 SURGICAL PATHOLOGY [facility] Work Phone: Comment on above: Release Upon Ordering for 1 Occurrences starting 08/18/2023, 1 completed Total protein measurement [facility] Urea nitrogen [Mass/ volume] in Serum or Plasma [facility] End: 05-30-2023 Us abdominal real time w/image limited US ABD RT UPPER QUADRANT Radiology Routine Elevated LFTs 1 Occurrences starting 04/30/2022 until 05/30/2023 [facility] Work Phone: Comment on above: 1 Occurrences starting 04/30/2022 until 05/30/2023 US Heart [facility] US Heart limited [facility] End: 12-27-2021 Us transvaginal [facility] Work Phone: Comment on above: 1 Occurrences starting 12/27/2021 until 12/27/2021 [facility] Immunizations Immunization Date Immunization Notes Care Provider Nita asher 02-21-2024 influenza, high dose seasonal, preservative-free Immunization [place] Work Phone: [facility] 09-05-2023 tetanus toxoid, redu gisell diphtheria toxoid, and acellular pertussis vaccine, adsorbed Dr. Minerva Shaver Work Phone: [facility] 02-10-2023 influenza (HD-IIV4) vaccine, age 65+ yr, high dose, quadrivalent, PF (FLUZONE HIGH-DOSE) Dianna Ballard ALUMNI RELATIONS COORDINATOR.[employer] Work Phone: [facility] 02-10-2023 influenza virus vaccine, unspecified formulation Pulm Wstr Work Phone: [facility] 01-21-2022 Influenza, high dose seasonal Dr. Minerva Shaver MD Work Phone: [facility] 01-21-2022 influenza, high dose seasonal, preservative-free Dr. Minerva Shaver Work Phone: [facility] 01-21-2022 influenza, high-dose , quadrivalent vaccine (FLUZONE HIGH DOSE QUADRIVALENT) Minerva Shaver MD Work Phone: [facility] Work Phone: 01-21-2022 influenza virus vaccine, unspecified formulation Dianna Ballard ALUMNI RELATIONS COORDINATOR.[employer] Work Phone: [facility] 09-19-2021 zoster vaccine recombinant Lindsay Cooper Zee MD Work Phone: [facility] 09-19-2021 zoster vaccine, unspecified formulation Toña Persaud MD Work Phone: [facility] 03-23-2021 Covid (Moderna) Dr. Minerva ash Work Phone: [facility] 02-03-2021 influenza, high-dose , quadrivalent vaccine (FLUZONE HIGH DOSE QUADRIVALENT) Dianna Ballard ALUMNI RELATIONS COORDINATOR.[employer] Work Phone: [facility] 06-13-2020 COVID-19 vaccine, fu ll dose (MODERNA) Dianna Ballard ALUMNI RELATIONS COORDINATOR.[employer] Work Phone: [facility] Work Phone: 05-16-2020 COVID-19 vaccine, fu ll dose (MODERNA) Dianna Older ALUMNI RELATIONS COORDINATOR.[facility] Work Phone: [facility] Work Phone: 03-04-2020 influenza, high-dose , quadrivalent vaccine (FLUZONE HIGH DOSE QUADRIVALENT) Dianna Older ALUMNI RELATIONS COORDINATOR.[employer] Work Phone: [facility] Work Phone: 02-12-2019 influenza, high dose seasonal, preservative-free Dianna Older ALUMNI RELATIONS COORDINATOR.[employer] Work Phone: [facility] 07-08-2018 tetanus and diphther ia toxoids, adsorbed, preservative free, for adult use (5 Lf of tetanus toxoid and 2 Lf of diphtheria toxoid) Dianna Older ALUMNI RELATIONS COORDINATOR.[employer] Work Phone: [facility] Work Phone: 01-23-2018 influenza, high dose seasonal, preservative-free Dianna Older ALUMNI RELATIONS COORDINATOR.[employer] Work Phone: [facility] Work Phone: 02-03-2016 influenza, high dose seasonal, preservative-free Dianna Older ALUMNI RELATIONS COORDINATOR.[employer] Work Phone: [facility] 04-28-2015 pneumococcal conjuga te vaccine, 13 valent Dianna Older ALUMNI RELATIONS COORDINATOR.[employer] Work Phone: [facility] 03-06-2015 influenza, injectabl e, quadrivalent, preservative free Dr. Minerva Shaver Work Phone: [facility] 03-06-2015 influenza, seasonal, injectable Dr. Minerva Shaver Work Phone: [facility] 02-18-2015 influenza, high dose seasonal, preservative-free Dianna Older ALUMNI RELATIONS COORDINATOR.[employer] Work Phone: [facility] Work Phone: 02-23-2014 influenza, seasonal, injectable Dianna Older ALUMNI RELATIONS COORDINATOR.[employer] Work Phone: [facility] 12-30-2013 pneumococcal polysaccharide vaccine, 23 valent Dianna Older ALUMNI RELATIONS COORDINATOR.[employer] Work Phone: [facility] 03-06-2013 influenza virus vaccine, unspecified formulation Dianna Older ALUMNI RELATIONS COORDINATOR.[facility] Work Phone: [facility] Work Phone: 02-29-2012 influenza virus vaccine, unspecified formulation Dianna Older ALUMNI RELATIONS COORDINATOR.[employer] Work Phone: [facility] Work Phone: 03-12-2011 influenza virus vaccine, unspecified formulation Dianna Older ALUMNI RELATIONS COORDINATOR.[employer] Work Phone: [facility] 12-25-2010 zoster vaccine, live Dianna Old er ALUMNI RELATIONS COORDINATOR.[facility] Work Phone: [facility] 08-20-2010 hepatitis B vaccine, adult dosage Dianna Older ALUMNI RELATIONS COORDINATOR.[facility] Work Phone: [facility] 03-01-2010 influenza virus vaccine, unspecified formulation Dianna Older ALUMNI RELATIONS COORDINATOR.[facility] Work Phone: [facility] Work Phone: 02-19-2010 hepatitis B vaccine, adult dosage Dianna Older ALUMNI RELATIONS COORDINATOR.[facility] Work Phone: [facility] Work Phone: 01-02-2010 hepatitis B immune globulin Dianna Older ALUMNI RELATIONS COORDINATOR.[facility] Work Phone: [facility] 02-15-2009 influenza virus vaccine, unspecified formulation Dianna Older ALUMNI RELATIONS COORDINATOR.[facility] Work Phone: [facility] Work Phone: 03-16-2008 influenza virus vaccine, unspecified formulation Dianna Older ALUMNI RELATIONS COORDINATOR.[employer] Work Phone: [facility] 03-26-2007 influenza virus vaccine, unspecified formulation Dianna Older ALUMNI RELATIONS COORDINATOR.[employer] Work Phone: [facility] Work Phone: 03-26-2007 pneumococcal polysaccharide vaccine, 23 valent Dianna Older ALUMNI RELATIONS COORDINATOR.[employer] Work Phone: [facility] Work Phone: 07-16-2006 tetanus and diphther ia toxoids, adsorbed, preservative free, for adult use (2 Lf of tetanus toxoid and 2 Lf of diphtheria toxoid) Dianna Ballard APRN.[employer] Work Phone: [facility] Payers Date Payer Category Payer Self-pay [id number] 2023 Managed Care (unspecified) [employer] [id number]. [id number] 2022 Medicare [id number]. 1.13.159.2. [id number] 2022 Medicare (Managed Care) 1.2. [id number]. [id number] 2022 Private Health Insurance [id number] .[id number]. [id number] 2022 Private Health Insurance [id number] 2022 Unknown [id number] 2020 Unknown MMO MMO TPA [id number] 2020-Present [address] [place] [address] PPO [id number]. [id number] 2020 Unknown ANTHEM BLUE CROS S AND BLUE SHIELD ANTHEM MEDIBLUE HMO [id number] 2020-Present [phone] [address] [place] [address] HMO [id number] 1.2.840.693675.1.13.159.2. 7.3.909627.315 2020 Unknown [id number]. 1.13.159.2. 7.3.931494.315 2016 Medicare [id number] 1945 Unknown [id number] 2.16.840.1.541153.3.579.2. 903 1945 Unknown [id number] 2.16.840.1.235644.3.579.2. 903 1947 Unknown [id number] 2.16.840.1.643353.3.579.2. 594 1947 Unknown [id number] 2.16.840.1.003662.3.579.2. 594 1947 Unknown [id number] 2.16.840.1.887554.3.579.2. 594 1947 Unknown [id number] 2.16.840.1.257958.3.579.2. 594 1947 Unknown [id number] 2.16.840.1.362963.3.579.2. 594 1947 Unknown [id number] 2.16.840.1.097103.3.579.2. 594 1947 Unknown [id number] 2.16.840.1.365719.3.579.2. 594 1947 Unknown [id number] 2.16.840.1.440888.3.579.2. 594 1947 Unknown [id number] 2.16.840.1.948244.3.579.2. 594 1947 Unknown [id number] .840.1.538374.3.579.2. 594 Medicare [id number] Medicare [id number] Unknown [id number] Unknown [id number] Unknown [id number] 2.840.1.657641.3.579.2. 462 Unknown [id number] 2.840.1.414606.3.579.2. 462 Unknown [id number] 2.840.1.640014.3.579.2. 462 Unknown [id number] 2.840.1.605567.3.579.2. 462 Unknown [id number] 2.840.1.239689.3.579.2. 462 Unknown [id number] 2.840.1.577415.3.579.2. 462 Unknown [id number] 2.16840.1.030883.3.579.2. 462 Unknown [id number] 2.840.1.376592.3.579.2. 462 Unknown [id number] 2.840.1.740106.3.579.2. 462 Unknown [id number] 2.16840.1.788775.3.579.2. 462 Unknown [id number] 2.16840.1.442606.3.579.2. 462 Unknown [id number] 2.16840.1.356921.3.579.2. 462 Unknown [id number] 2.840.1.619509.3.579.2. 462 Unknown [id number] 2.16.840.1.743842.3.579.2. 462 Unknown [id number] 2.16.840.1.921407.3.579.2. 462 Unknown [id number] 2.16.840.1.955734.3.579.2. 462 Unknown [id number] 2.16.840.1.579727.3.579.2. 462 Unknown [id number] 2.16.840.1.457101.3.579.2. 462 Unknown [id number] 2.16840.1.972572.3.579.2. 462 Unknown [id number] 2.16840.1.818914.3.579.2. 462 Unknown [id number] 2.840.1.139445.3.579.2. 462 Unknown [id number] 2.840.1.857634.3.579.2. 462 Unknown [id number] 2.840.1.053689.3.579.2. 462 Unknown [id number] 2.840.1.448847.3.579.2. 462 Unknown [id number] 2.16840.1.349936.3.579.2. 462 Unknown [id number] 2.16840.1.151384.3.579.2. 462 Unknown [id number] 2.16840.1.605175.3.579.2. 462 Unknown [id number] 2.16840.1.794993.3.579.2. 462 Unknown [id number] 2.16.840.1.359159.3.579.2. 462 Unknown [id number] 2.16840.1.988513.3.579.2. 462 Unknown [id number] 2.16840.1.189869.3.579.2. 462 Unknown [id number] 2.16840.1.786659.3.579.2. 462 Unknown [id number] 2.16.840.1.107756.3.579.2. 462 Unknown [id number] 2.16.840.1.136736.3.579.2. 462 Social History Date Type Detail Facility Start: 12-24-2021 End: 06-17-2024 Tobacco smoking status NHIS Ex-smoker [facility] Work Phone: Start: 11-09-1970 End: 11-09-2005 History of tobacco use Current smoker [facility] Work Phone: Start: 11-09-1970 End: 11-09-2005 History of tobacco use Cigarette Smoker [facility] Work Phone: Start: 06-05-2020 End: 07-10-2021 Alcohol intake Current drinker of alcohol (finding) [facility] Start: 06-27-2021 End: 02-22-2022 History SDOH Alcohol Frequency 1 [facility] Start: 07-05-2013 History SDOH Alcohol Comment mixed drink in p.m. [facility] Start: 06-27-2021 End: 04-15-2022 History SDOH Social Connections Phone 5 [facility] Start: 06-27-2021 End: 04-15-2022 History SDOH Social Connections Get Together 4 [facility] Start: 06-27-2021 End: 04-15-2022 History SDOH Social Connections Membership 2 [facility] Start: 06-27-2021 End: 04-15-2022 History SDOH Physical Activity MPS 15 [facility] Start: 1945 Sex Assigned At Female C [facility] Start: 05-06-2020 End: 09-13-2022 Exposure to SARS-CoV-2 (event) Not sure [facility] Start: 12-24-2021 End: 09-26-2022 Cigarettes smoked current (pack per day) - Reported 2 [facility] Start: 12-24-2021 End: 06-17-2024 Tobacco use and exposure Smokeless tobacco non-user [facility] Start: 12-24-2021 End: 07-22-2024 Alcohol intake Ex-drinker (finding) [facility] Start: 12-24-2021 Tobacco Comment Stopped smoking 12/29 05 [facility] Start: 12-21-2021 End: 09-05-2023 Tobacco smoking status NHIS Unknown if ever smoked [facility] Start: 10-12-2016 None [facility] Start: 10-31-2018 Alone [facility] Start: 06-15-2020 Non-smoker [facility] Start: 04-15-2022 History SDOH Alcohol Std Drinks 0 [facility] Start: 1945 Sex Assigned At Not on file [facility] Start: 04-15-2022 End: 09-26-2022 Gender identity Not on file [facility] Start: 09-13-2022 Tobacco smoking stat us NHIS Never smoked tobacco [facility] Start: 09-13-2022 Alcohol intake Lifetime non-d tristan (finding) [facility] Do you belong to any clubs or organizations such as temple groups, [employer], fraternal or athletic groups, or school groups? No [facility] Are you now , , , , never or living with a partner? [facility] Frequency of Alcohol Consumption Not on file [facility] How often do you hav e 6 or more drinks on 1 occasion? Never [facility] Do you feel stress - tense, restless, nervous, or anxious, or unable to sleep at night because your mind is troubled all the time - these days [OSQ] Only a little [facility] (I/We) worried wheth er (my/our) food would run out before (I/we) got money to buy more. Never true [facility] Start: 03-02-2020 Gender identity Identifies as female gender (finding) [facility] Start: 03-02-2020 Sexual orientation Heterosexual (fin ding) [facility] Do you feel stress - tense, restless, nervous, or anxious, or unable to sleep at night because your mind is troubled all the time - these days [OSQ] Not at all [facility] Start: 05-23-2015 End: 08-01-2024 Sex Female (finding) [facility] NEGATED: Highlighted rowStart: NINF History of tobacco use Passive smoker [facility] Medical Equipment Procedure Code Equipment Code Equipment Origin al Text Equipment Identifier Dates Lead Pacing 69cm Atrium Ventricle Selectsecure Bipolar Fixed - [id number] Start: 10-07-2024 Cardiac pacemaker, device (physical object) ([id number]) Pacemaker 7.4mm Mescal Xt Sr Ti Poly Kitty 50.8x42.6mm Crd 22.5 - [id number] Start: 10-07-2024 Goals Date Patient Goal Desired Activity /State Functional Status Date Assessment Result Facility 10-01-2024 Are you deaf, or do you have serious difficulty hearing No 10/01/2024 8:00 PM June Joshua, NINI No [facility] 10-01-2024 Are you blind, or do you have serious difficulty seeing, even when wearing glasses No 10/01/2024 8:00 PM June Joshua, NINI No [facility] 10-01-2024 Do you have serious difficulty walking or climbing stairs Yes 10/01/2024 8:00 PM June Joshua, NINI Yes [facility] 10-01-2024 Do you have difficul ty dressing or bathing No 10/01/2024 8:00 PM June Joshua, NINI No [facility] 10-01-2024 Because of a physica l, mental, or emotional condition, do you have difficulty doing errands alone such as visiting a physician's office or shopping No 10/01/2024 8:00 PM June Joshua, NINI No [facility] 06-22-2024 Total score [AUDIT-C] 0 06/22/19 25 12:30 PM EST User, Cristiano [facility] 06-22-2024 Within the last year , have you been humiliated or emotionally abused in other ways by your partner or ex-partner? No 06/22/2024 12:30 PM EST User, Cristiano [facility] 06-22-2024 Within the last year , have you been afraid of your partner or ex-partner? No 06/22/2024 12:30 PM EST User, Cristiano [facility] 06-22-2024 Within the last year , have you been raped or forced to have any kind of sexual activity by your partner or ex-partner? No 06/22/2024 12:30 PM EST User, Cristiano No [facility] 06-22-2024 Within the last year , have you been kicked, hit, slapped, or otherwise physically hurt by your partner or ex-partner? No 06/22/2024 12:30 PM EST User, [email or web address] No [facility] 06-22-2024 How often to you hav e a drink containing alcohol? Never 06/22/2024 12:30 PM EST User, Mychart Never [facility] 06-22-2024 Functional status Patient does n ot drink 06/22/2024 12:30 PM EST User, [email or web address] Patient does not drink [facility] 06-22-2024 How often do you hav e 6 or more drinks on 1 occasion? Never 06/22/2024 12:30 PM EST User, Melissahart Never [facility] 01-02-2023 Functional status Ambulates [facility] Work Phone: 08-11-2022 Functional status Chair [facility] Work Phone: 08-11-2022 Functional status None [facility] Work Phone: 08-11-2022 Functional status Activity Abili ty Independent [facility] Work Phone: 08-10-2022 Functional status Chair [facility] Work Phone: 08-19-2014 Are you deaf, or do you have serious difficulty hearing No 08/19/2014 8:51 AM iMsti Du RN No [facility] 08-19-2014 Are you blind, or do you have serious difficulty seeing, even when wearing glasses No 08/19/2014 8:51 AM Misti Du RN No [facility] 08-19-2014 Do you have serious difficulty walking or climbing stairs No 08/19/2014 8:51 AM Misti Du RN No [facility] 08-19-2014 Do you have difficul ty dressing or bathing No 08/19/2014 8:51 AM Misti Du RN No [facility] 08-19-2014 Because of a physica l, mental, or emotional condition, do you have difficulty doing errands alone such as visiting a physician's office or shopping No 08/19/2014 8:51 AM Misti Du RN No [facility] Mental Status Date Assessment Result Facility 10-01-2024 Because of a physica l, mental, or emotional condition, do you have serious difficulty concentrating, remembering, or making decisions No 10/01/2024 8:00 PM June Joshua, NINI No [facility] 07-31-2024 Cognitive function Voice/Name [facility] Work Phone: 05-25-2024 Cognitive function Voice/Name [facility] Work Phone: 01-02-2023 Cognitive function Voice/Name [facility] Work Phone: 08-11-2022 Cognitive function Appropriate;Cooperativ [facility] Work Phone: 08-11-2022 Cognitive function Voice/Name [facility] Work Phone: 08-10-2022 Cognitive function Appropriate;Cooperativ e [facility] Work Phone: 08-10-2022 Cognitive function Arousable To Voice/Nam e [facility] Work Phone: 04-27-2022 Cognitive function Level Of Cons ciousness Awake;Alert;Appropriate;Fol lows Commands [facility] Work Phone: 08-19-2014 Because of a physica l, mental, or emotional condition, do you have serious difficulty concentrating, remembering, or making decisions No 08/19/2014 8:51 AM Misti Du RN No [facility] Clinical Notes 11-22-2015 to 10-22-2024 Patient Dianna Aguilera APRN.[employer] - 10/22/2024 8:55 AM EDTTelephone Encounter - Toshia Jaquez LPN - 10/20/2024 9:02 AM Maya Cohen RN - 10/18/2024 11:11 AM EDTAttachments Note Date & Type Note Facility 10-22-2024 Instructions Dianna Ballard APRN.ANITHA - 10/22/2024 9:02 AM EDT - Continue taking furosemide (Lasix) as prescribed. - Stop taking Tikosyn and your potassium supplement per hospital instructions. - Stop Eliquis on Friday before your carpal tunnel surgery; call your mechanical energy engineer today to let them know and confirm any specific instructions. - Use Nystatin [id number] twice daily for up to 14 days to treat your mouth thrush; you may stop after 7 days if white patches resolve. - After each Flonase dose, rinse your mouth with water to help prevent thrush. - Provide a urine sample at your convenience so we can confirm your urinary tract infection has cleared; the lab will perform a culture if needed. - Use your incentive spirometer several times a day and cough afterward to help re-expand your lungs and prevent collapse. - Monitor any peeling skin--if you notice redness, burning, or pain, please let us know. - If you continue to have shortness of breath or if it worsens, contact your mechanical energy engineer. documented in this encounter [facility] 10-22-2024 Note HNO ID: [id number] Author: DIANNA BALLARD APRN.CNP Service: ? Author Type: Nurse Practitioner Type: Progress Notes Filed: 10/22/2024 10:38 Note Text: CC: Patient presents with: Recheck: Hospital follow up HPI Elizabeth Persaud is a 79 year old female who presents today for hospital follow up. Recording using [employer] software for draft documentation of the visit was discussed with the patient/authorized business development representative; all questions welcomed and answered. Patient/authorized business development representative agreed to proceed Atrial Fibrillation: - Recent hospitalization at [facility] for atrial fibrillation with rapid ventricular response; heart rate ranged from 140-180 bpm. - Underwent unsuccessful cardioversion, followed by ablation and pacemaker placement. - Discharged on 11/08 after a 7-day stay. - Previously on Tikosyn, discontinued due to lack of efficacy. - Currently taking Eliquis, scheduled to stop tomorrow for upcoming carpal tunnel surgery. - Concerns about Fitbit affecting pacemaker; has messaged title curator for clarification. - denies chest pain, palpitations, syncope, or headaches. Dyspnea: - not as much dyspnea but feels like she just randomly has to take a deep breath at intermittent times - occurring while sitting, walking, and during sleep. - No associated cough, ill symptoms, palpitations or chest pressure. - Mild wheezing reported but nothing outside of her typical COPD. Mild dependent edema: - Intermittent in both legs, more noticeable at night and resolves by morning. - No associated redness or tenderness. - Currently taking Lasix. Urinary Tract Infection: - Diagnosed with UTI during recent hospitalization, treated with 5 days of IV antibiotics followed by oral antibiotics. - No current dysuria, abdominal pain, vomiting, bowel changes, fever, or chills. - Reports occasional nausea, attributed to vitamin intake that is chronic. Positional Vertigo: - Longstanding history of positional vertigo. - no change in this or concerns but would like to try acupuncture. REVIEW OF SYSTEMS See HPI PAST MEDICAL HISTORY Diagnosis Date Anxiety Arthritis Atrial fibrillation (HCC) s/p ablation 07/2015 Backache, unspecified Moses's esophagus Basal cell carcinoma BPPV (benign paroxysmal positional vertigo) Cancer (HCC) Basal cell on forehead Carpal [...] TUBE ABDL/VAG APPR UNI/BI Tubal ligation NEUROPLASTY AND/TRANSPOS MEDIAN NRV CARPAL TUNNE 02/14/2012 Carpal tunnel [...] surgery with implants- Dr Jacob Aguilar at [facility] PAST SURGICAL HISTORY OF 07/27/2015 cryo ablation, cardiac PAST SURGICAL HISTORY OF cardiac ablation RPR UMBILICAL HRNA 5 YRS/> REDUCIBLE 07/17/2010 Hernia repair, umbilical >5yr [facility] Dr Manuel Hoover SHX COSMETIC SURGERY SKIN BIOPSY HX ALLERGIES Cardizem [Diltiazem Hcl], Codeine, Entex [Phenylephrine-Guaifenesin], Etodolac, Meloxicam, Naproxen, Tape [Adhesive Tape (Rosins)], Trazodone, and Zantac [Ranitidine Hcl] MEDICATIONS nystatin (MYCOSTATIN) 100,000 unit/mL suspension Take 4 mL by mouth four times daily for 14 days. Swish and swallow. omeprazole (PRILOSEC) 40 mg capsule Take 1 capsule by mouth once daily. fluticasone (FLONASE) 50 mcg/actuation nasal spray Use 2 Sprays in each nostril once daily. Rinse mouth after use. benzonatate (TESSALON PERLE) 100 mg capsule Take (more content not included)... [facility] 10-22-2024 History of Present illness Narrative CC: Patient presents with: Recheck: Hospital follow up HPI Elizabeth Persaud is a 79 year old female who presents today for hospital follow up. Recording using [employer] software for draft documentation of the visit was discussed with the patient/authorized business development representative; all questions welcomed and answered. Patient/authorized business development representative agreed to proceed Atrial Fibrillation: - Recent hospitalization at [facility] for atrial fibrillation with rapid ventricular response; heart rate ranged from 140-180 bpm. - Underwent unsuccessful cardioversion, followed by ablation and pacemaker placement. - Discharged on 11/08 after a 7-day stay. - Previously on Tikosyn, discontinued due to lack of efficacy. - Currently taking Eliquis, scheduled to stop tomorrow for upcoming carpal tunnel surgery. - Concerns about Fitbit affecting pacemaker; has messaged title curator for clarification. - denies chest pain, palpitations, syncope, or headaches. Dyspnea: - not as much dyspnea but feels like she just randomly has to take a deep breath at intermittent times - occurring while sitting, walking, and during sleep. - No associated cough, ill symptoms, palpitations or chest pressure. - Mild wheezing reported but nothing outside of her typical COPD. Mild dependent edema: - Intermittent in both legs, more noticeable at night and resolves by morning. - No associated redness or tenderness. - Currently taking Lasix. Urinary Tract Infection: - Diagnosed with UTI during recent hospitalization, treated with 5 days of IV antibiotics followed by oral antibiotics. - No current dysuria, abdominal pain, vomiting, bowel changes, fever, or chills. - Reports occasional nausea, attributed to vitamin intake that is chronic. Positional Vertigo: - Longstanding history of positional vertigo. - no change in this or concerns but would like to try acupuncture. REVIEW OF SYSTEMS See HPI PAST MEDICAL HISTORY Diagnosis Date Anxiety Arthritis Atrial fibrillation (HCC) s/p ablation 07/2015 Backache, unspecified Moses's esophagus Basal cell carcinoma BPPV (benign paroxysmal positional vertigo) Cancer (HCC) Basal cell on forehead Carpal [...] surgery with implants- Dr Jacob Aguilar at [facility] PAST SURGICAL HISTORY OF 07/27/2015 cryo ablation, cardiac PAST SURGICAL HISTORY OF cardiac ablation RPR UMBILICAL HRNA 5 YRS/> REDUCIBLE 07/17/2010 Hernia repair, umbilical >5yr [facility] Dr Manuel Hoover SHX COSMETIC SURGERY SKIN BIOPSY HX ALLERGIES Cardizem [Diltiazem Hcl], Codeine, Entex [Phenylephrine-Guaifenesin], Etodolac, Meloxicam, Naproxen, Tape [Adhesive Tape (Rosins)], Trazodone, and Zantac [Ranitidine Hcl] MEDICATIONS nystatin (MYCOSTATIN) 100,000 unit/mL suspension Take 4 mL by mouth four times daily for 14 days. Swish and swallow. omeprazole (PRILOSEC) 40 mg capsule Take 1 capsule by mouth once daily. fluticasone (FLONASE) 50 mcg/actuation nasal spray Use 2 Sprays in each nostril once daily. Rinse mouth after use. benzonatate (TESSALON PERLE) 100 mg capsule Take 1 capsule by mouth three times a day as needed. xlqwuoolqfs-rlonxgipp-aqbqnabg (TRELEGY ELLIPTA) 100-62.5-25 mcg inhalation powder Inhale 1 Puff as instructed once daily. sucralfate (CARAFATE) 100 mg/mL suspension Take 10 mL by mouth before meals and at bedtime. (560cc=2wks) diclofenac, EC, (VOLTAREN) 75 mg EC tablet Takes once daily PRN for acute pain/inflammation. Take with food. metoprolol succinate ER (TOPROL XL) 50 mg 24 hr tablet Take 1 tablet by mouth two times a day. JARDIANCE 10 mg tablet Take 10 mg by mouth once daily. Ipratropium (ATROVENT) 17 mcg/actuation inhaler Inhale 2 Puffs as instructed every 6 hours as needed for wheezing/shortness of breath. furosemide (LASIX) 40 mg tablet Take 1 tablet by mouth twice daily. apixaban (ELIQUIS) 5 mg tab(s) Take by mouth twice daily. Bifidobacterium infantis (ALIGN) 10.5 mg (10 million cell) chew Take 1 tablet by mouth once daily. melatonin 3 mg ODT Take 1 tablet by mouth daily at bedtime. MULTIVITAMIN WITH MINERALS (ONE-A-DAY 50 PLUS ORAL) Take by mouth. CALCIUM CARBONATE/VITAMIN D3 (VITAMIN D-3 ORAL) Take 1,000 mg by mouth five times daily. AZIXBIX-VOQRLMJDA-RHRP ORAL Take by mouth. FAMILY HISTORY Problem Relation Age of Onset Hypertension Mother Stroke Mother Coronary Artery Disease Father other (wilsons disease) Brother other (VINCE'S DISEASE) Brother Liver dse, cirrhosis Social History Tobacco Use Smoking status: Former Current packs/day: 0.00 Average packs/day: 2.0 packs/day for 35.0 years (70.0 ttl pk-yrs) Types: Cigarettes Start date: 11/09/1970 Quit date: 11/09/2005 Years since quittin.9 Smokeless tobacco: Never Tobacco comments: Stopped smoking 12/2005 Vaping Use Vaping status: Never Used Substance Use Topics Alcohol use: Not Currently Drug use: No PHYSICAL EXAM BP 128/84 Pulse 76 Temp 36.2 C (97.1 F) (Temporal) Resp 16 Wt 62.6 kg (138 lb) SpO2 96% BMI 26.05 kg/m General Appearance: well appearing, in no acute distress, alert Pysch: mood and affect broad and appropriate Neck: Thyroid normal size and symmetric without palpable nodules, Neck supple, No adenopathy Propharynx:thrush Lymph nodes: No cervical lymphadenopathy and No supraclavicular lymphadenopathy Lungs: Lungs clear to auscultation. No wheezing, rhonchi, rales. Heart: RRR without murmur, gallop, or rubs. No ectopy Abdomen: Abdomen soft, non-tender. Bowel sounds normal. No masses, organomegaly, Negative CVA tenderness Health maintenance reviewed with patient: Depression Screening Never done Anxiety Screening Never done Shingrix Vaccine(3 of 3) due on 11/14/2021 RSV Vaccine(1 - 1-dose 75+ series) Never done Medicare Advantage Annual Wellness Visit due on 05/12/2024 Covid-19 Vaccine( - 2023- season) due on 07/22/2025 Annual PCP Team Chronic Disease Visit due on 10/22/2025 Diabetes Screening due on 10/19/2027 DTaP,Tdap,Td Vaccine(2 - Td or Tdap) due on 09/04/2033 Bone Density Screening Completed Influenza Vaccine Completed Advance Directive Discussion Completed Hepatitis C Screening Completed Pneumococcal Vaccine: 50+ Completed Mammogram Screening Discontinued Colorectal Cancer Screening Discontinued DATA REVIEWED: Most recent labs and imaging results. Assessment/Plan 1. History of recent hospitalization (Z92.89) - Hospitalized for 7 days due to persistent tachycardia and UTI; underwent ablation and pacemaker placement. - Discharged on 11/08. 2. Presence of cardiac pacemaker (Z95.0) 3. Paroxysmal atrial fibrillation (HCC) (I48.0) - Pacemaker placed following unsuccessful cardioversion and ablation due to persistent atrial fibrillation with rapid ventricular response. - Glass Cut Off Supervisor to adjust pacemaker settings to 60 bpm after scar tissue formation. - Continue Eliquis; patient to hold Eliquis for upcoming carpal tunnel surgery. - Advised patient to inform mechanical energy engineer about upcoming surgery and current symptoms of dyspnea. 4. Urinary tract infection without hematuria, site unspecified (N39.0) - Treated with 5 days of IV antibiotics followed by oral antibiotics during hospitalization. - Ordered urinalysis to confirm resolution of infection. Unable to urinate in office 5. Candidiasis of mouth (B37.0) - Prescribed Nystatin swish and swallow for 7-14 days. - Educated patient on the importance of rinsing mouth after using Flonase and respiratory inhaler to prevent recurrence. 6. Benign paroxysmal vertigo, unspecified laterality (H81.10) - Chronic condition; ok to try acupuncture, call if consult required 7. Dependent edema (R60.9) - mild not noted in office, resolves in the morning. - Continue Lasix. Low sodium diet, elevate legs as able throughout the day, wear compression socks during the day 8. Dyspnea, unspecified type (R06.00) - urge to take deep breath, not really dyspnea. - Lungs auscultated clear; no signs of infection or copd exacerbation - Advised use of incentive spirometer to improve lung expansion. - Discuss symptoms with mechanical energy engineer. - follow up for any new issues or further concerns. Prescription instructions reviewed with patient as applicable. Potential red flag symptoms discussed with the patient. Reviewed appropriate action plan to take if red flag symptoms occur. Patient agreeable to treatment plan. Dianna Ballard APRN.ANITHA documented in this encounter [facility] 10-20-2024 Telephone encounter Note Patient has been identified by name and date of : Yes Patient phones for refill(s): Requested Prescriptions Pending Prescriptions Disp Refills omeprazole (PRILOSEC) 40 mg capsule 180 capsule 3 Sig: Take 1 capsule by mouth once daily. Date of last office visit in primary care: 08/11/2024 Date of next office visit in primary care: 10/22/2024 Please advise. Thank you. Toshia Jaquez LPN. [facility] 10-20-2024 Miscellaneous Notes Patient has been identified by name and date of : Yes Patient phones for refill(s): Requested Prescriptions Pending Prescriptions Disp Refills omeprazole (PRILOSEC) 40 mg capsule 180 capsule 3 Sig: Take 1 capsule by mouth once daily. Date of last office visit in primary care: 08/11/2024 Date of next office visit in primary care: 10/22/2024 Please advise. Thank you. Toshia Jaquez LPN. documented in this encounter [facility] 10-18-2024 Note HNO ID: [id number] Author: MAYA VELAZQUEZ RN Service: ? Author Type: Registered Nurse Type: Progress Notes Filed: 10/18/2024 11:23 Note Text: Transitional Care Management (TCM) Follow-Up Note PCP Update / Actionable Items N/A - No specialty updates needed Patient Source: Krg-nv-Cbskyhw (OON) Discharge Outreach Summary: Patient reports she is feeling well, she has future labs ordered to be drawn prior to her PCP appt on 10/22/24. No acute or worsening concerns at this time, nor further questions. Follow Up Cardiology appointments at [facility] and also [facility] upcoming. Contact: Contact made with patient: Yes Spoke to: Patient Validation: Validated the person spoken to is actively involved in the patient's care. The patient was identified by Name and Date of . I'd like to get an update on how you're doing since our last phone call. Is now a good time to talk? Yes Symptoms: Are you feeling about the same, better or worse since leaving the hospital? Better Weekly Outreach: 1st Outreach Medications: Do you have any questions about taking your medications, including which medications you should be on, or do you need refills on your medications? No Patient Questions / Concerns: Do you have any questions related to your discharge? No Appointment / TCM Follow-Up: Have you had a follow-up visit with your Primary Care Provider or Specialist since you were discharged? No Do you need any assistance with scheduling or changing your follow-up appointments? Patient already has an appointment scheduled EDUCATION: Patient and family educated on issues/questions related to reason for admission, transition of care topics, and follow-up needed upon discharge. Utilization Education - Where to go for Care Where to Go for Care Maya Velazquez RN October 18, 2024 11:[address] [facility] 10-18-2024 History of Present illness Narrative Transitional Care Management (TCM) Follow-Up Note PCP Update / Actionable Items N/A - No specialty updates needed Patient Source: Dto-lq-Kydrhqg (OON) Discharge Outreach Summary: Patient reports she is feeling well, she has future labs ordered to be drawn prior to her PCP appt on 10/22/24. No acute or worsening concerns at this time, nor further questions. Follow Up Cardiology appointments at [facility] and also [facility] upcoming. Contact: Contact made with patient: Yes Spoke to: Patient Validation: Validated the person spoken to is actively involved in the patient's care. The patient was identified by Name and Date of . I'd like to get an update on how you're doing since our last phone call. Is now a good time to talk? Yes Symptoms: Are you feeling about the same, better or worse since leaving the hospital? Better Weekly Outreach: 1st Outreach Medications: Do you have any questions about taking your medications, including which medications you should be on, or do you need refills on your medications? No Patient Questions / Concerns: Do you have any questions related to your discharge? No Appointment / TCM Follow-Up: Have you had a follow-up visit with your Primary Care Provider or Specialist since you were discharged? No Do you need any assistance with scheduling or changing your follow-up appointments? Patient already has an appointment scheduled EDUCATION: Patient and family educated on issues/questions related to reason for admission, transition of care topics, and follow-up needed upon discharge. Utilization Education - Where to go for Care Where to Go for Care Maya Velazquez RN October 18, 2024 11:12 AM documented in this encounter [facility] 10-18-2024 Note Patient Outreach ([facility]) ELIZABETH PERSAUD ([id number]) 1945 F MISSAEL Date Time Provider Department 10/18/24 MAYA VELAZQUEZ During your visit today, we recorded the following information about you: Maya Velazquez RN 10/18/2024 11:23 AM Signed Transitional Care Management (TCM) Follow-Up Note PCP Update / Actionable Items N/A - No specialty updates needed Patient Source: Oyn-xd-Wmfexhs (OON) Discharge Outreach Summary: Patient reports she is feeling well, she has future labs ordered to be drawn prior to her PCP appt on 10/22/24. No acute or worsening concerns at this time, nor further questions. Follow Up Cardiology appointments at [facility] and also [facility] upcoming. Contact: Contact made with patient: Yes Spoke to: Patient Validation: Validated the person spoken to is actively involved in the patient's care. The patient was identified by Name and Date of . I'd like to get an update on how you're doing since our last phone call. Is now a good time to talk? Yes Symptoms: Are you feeling about the same, better or worse since leaving the hospital? Better Weekly Outreach: 1st Outreach Medications: Do you have any questions about taking your medications, including which medications you should be on, or do you need refills on your medications? No Patient Questions / Concerns: Do you have any questions related to your discharge? No Appointment / TCM Follow-Up: Have you had a follow-up visit with your Primary Care Provider or Specialist since you were discharged? No Do you need any assistance with scheduling or changing your follow-up appointments? Patient already has an appointment scheduled EDUCATION: Patient and family educated on issues/questions related to reason for admission, transition of care topics, and follow-up needed upon discharge. Utilization Education - Where to go for Care Where to Go for Care Maya Velazquez RN October 18, 2024 11:12 AM Allergies As of Date: 10/18/2024 Noted Allergy Reaction CARDIZEM (DILTIAZEM HCL) 01/18/2015 7 - Swelling CODEINE 01/21/2006 11 - Vomiting Comments: Ringing in Ears. ENTEX (PHENYLEPHRINE-GUAIFENESIN) 03/06/2007 2 - Rash ETODOLAC 07/06/2012 14 - Other: See Comments Comments: Heart palpitations MELOXICAM 05/25/2012 14 - Other: See Comments Comments: Heart palpitations NAPROXEN 01/29/2011 7 - Swelling Comments: Possible allergy? Pt relates to naproxen TAPE (ADHESIVE TAPE (ROSINS)) 03/31/2023 2 - Rash TRAZODONE 08/19/2014 14 - Other: See Comments Comments: rapid hear beat ZANTAC (RANITIDINE HCL) 05/29/2016 2 - Rash 7 - Swelling Date Reviewed: 08/11/2024 Reviewed by: Tamanna Cordova MA - Fully Assessed Prescriptions as of 10/18/2024 - fluticasone (FLONASE) 50 mcg/actuation nasal spray Use 2 Sprays in each nostril once daily. Rinse mouth after use. - benzonatate (TESSALON PERLE) 100 mg capsule Take 1 capsule by mouth three times a day as needed. - dofetilide (TIKOSYN) 125 mcg capsule 125 mcg two times a day. - izmyeucjfvo-tjgzfnkzy-tlvsibzk (TRELEGY ELLIPTA) 100-62.5-25 mcg inhalation powder Inhale 1 Puff as instructed once daily. - sucralfate (CARAFATE) 100 mg/mL suspension Take 10 mL by mouth before meals and at bedtime. (560cc=2wks) - nystatin (MYCOSTATIN) 100,000 unit/mL suspension Take 5 mL by mouth four times daily. 1tsp swish in mouth for several minutes, then swallow (or expectorate) 4 times daily until gone. - diclofenac, EC, (VOLTAREN) 75 mg EC tablet Takes once daily PRN for acute pain/inflammation. Take with food. - omeprazole (PRILOSEC) 40 mg capsule Take 1 capsule by mouth once daily. - metoprolol succinate ER (TOPROL XL) 50 mg 24 hr tablet Take 1 tablet by mouth two times a day. - JARDIANCE 10 mg tablet Take 10 mg by mouth once daily. - Ipratropium (ATROVENT) 17 mcg/actuation inhaler Inhale 2 Puffs as instructed every 6 hours as needed for wheezing/shortness of breath. - furosemide (LASIX) 40 mg tablet Take 1 tablet by mouth twice daily. - apixaban (ELIQUIS) 5 mg tab(s) Take by mouth twice daily. - Bifidobacterium infantis (ALIGN) 10.5 mg (10 million cell) chew Take 1 tablet by mouth once daily. - potassium chloride ER (K-DUR, KLOR-CON) 20 mEq tablet Take 1 tablet by mouth twice daily. - melatonin 3 mg ODT Take 1 tablet by mouth daily at bedtime. - MULTIVITAMIN WITH MINERALS (ONE-A-DAY 50 PLUS ORAL) Take by mouth. - CALCIUM CARBONATE/VITAMIN D3 (VITAMIN D-3 ORAL) Take 1,000 mg by mouth five times daily. - PDXGBNF-ZMDJNEEUN-FHAR ORAL Take by mouth. Problem List As Of Date 10/18/2024 Noted Resolved PERSISTENT INSOMNIA [G47.00] 07/16/2006 Moses's esophagus [K22.70] 07/16/2006 CALCULUS OF KIDNEY [N20.0] 07/16/2006 Irritable bowel syndrome [K58.9] 07/16/2006 01/10/2016 Tobacco use disorder [F17.200] 07/16/2006 01/10/2016 Pain in joint, shoul (more content not included)... [facility] 10-14-2024 Procedure note [facility] 10-14-2024 Note HNO ID: [id number] Author: LAITH MONTES MD Service: ? Author Type: Physician Type: Progress Notes Filed: 10/14/2024 08:47 Note Text: Recently hospitalized in September with persistent atrial fibrillation and flutter and Klebsiella pyelonephritis. S/p PPM. [facility] 10-14-2024 History of Presen t illness Narrative Recently hospitalized in September with persistent atrial fibrillation and flutter and Klebsiella pyelonephritis. S/p PPM. documented in this encounter [facility] 10-11-2024 Note HNO ID: [id number] Author: MAYA VELAZQUEZ RN Service: ? Author Type: Registered Nurse Type: Progress Notes Filed: 10/11/2024 10:31 Note Text: Transition Care Management (TCM) Initial Outreach PCP Update / Actionable Items HRTIC TCM Home Visit Referral Source of Stratification: TCM HUB Hospital Admission Status: Discharged Readmission Risk Score: NA Patient's zip code: [address] Is zip code within program service area: Y Patient meets program referral criteria: No Patient does not qualify for High Risk TCM Home Visit program due to: Readmission Risk Score does not meet criteria Disposition: Patient does not qualify for HRTIC, will provide TCM outreach follow-up for 30-days Patient Source: Fdx-ju-Mijwwky (OON) Discharge Outreach Summary: Patient reports she was admitted to [facility] for uncontrolled Afib after two ablations and multiple cardioversion's. She underwent a procedure for a Pacemaker/ICD. She is feeling so much better, she reports. Patient follows Cardiology at [facility] and with [facility] for the device. Her device is monitored by [facility], she reports. Follow up Hospital DC appt in place with PCP and Cardiology with [facility] and [facility]. No acute or worsening symptoms nor further questions at this time. Patient discharged from [facility] Discharge date: 10/08/24 Admitted for: Uncontrolled AFib Readmission Risk: NA Value-Based Contract: [place] MANN Contact: Contact made with patient: Yes Hi, my name is Maya Velazquez RN and I am calling from the [facility] on behalf of your Primary Care Provider, Minerva Shaver MD. I understand you were recently in the hospital, so I am calling to check in with you to ensure you are feeling well now that you are home. May I ask you a few questions related to your hospital stay and well-being? Yes Spoke to: Patient Validation: Validated the person spoken to is actively involved in the patient's care. The patient was identified by Name and Date of . Symptoms: Are you feeling about the same, better or worse since leaving the hospital? Better Medications: Do you have any questions about taking your medications, including which medications you should be on, or do you need refills on your medications? No Medication Review: Partial mediation review completed, per patient preference Discharge Instructions: Your Discharge Instructions / After Visit Summary (AVS) are important in guiding you through the recovery process. Do you have any questions related to your discharge instructions? No Home Care: Were you discharged with home care? No Equipment: Do you have all the necessary equipment and supplies needed at your home? Not applicable Social: Your mental health is as important to us as your physical health. Would you mind answering a few questions on this topic? Yes On the Storyboard review: Food Insecurity, Transportation, Depression, Housing, and Financial Strain: Complete any SDOHs, listed above, if not addressed in the past 3 months. If all SDOHs, listed above, have been addressed within the last 3 months, confirm responses and update any SDOHs that have changed. Action Taken: No needs verbalized. No action required. Follow-Up Appointment: [Appointment / TCM Follow-up within 14 days] I would like to help you schedule a hospital follow-up virtual or telephone visit with your PCP. This is a great way for you to connect with your provider to ensure you have safely transitioned home. If you are agreeable, I will send your request to a operating room scheduler who will contact and assist you with that appointment. This will give you an opportunity to ask any questions or address any concerns you may have with your PCP. Inform the patient that if they have any questions or concerns prior to that appointment, to call their PCP's office right away. Appointment Action: No action required; patient already has appointment scheduled. Education details: Patient and family educated on issues/questions related to reason for admission, transition of care topics, and follow-up needed upon discharge. Utilization Education - Where to go for Care Where to Go for Care Maya Velazquez RN October 11, 2024 10:[address] [facility] 10-11-2024 History of Presen t illness Narrative Transition Care Management (TCM) Initial Outreach PCP Update / Actionable Items HRTIC TCM Home Visit Referral Source of Stratification: TCM HUB Hospital Admission Status: Discharged Readmission Risk Score: NA Patient's zip code: [address] Is zip code within program service area: Y Patient meets program referral criteria: No Patient does not qualify for High Risk TCM Home Visit program due to: Readmission Risk Score does not meet criteria Disposition: Patient does not qualify for HRTIC, will provide TCM outreach follow-up for 30-days Patient Source: [id number] (OON) Discharge Outreach Summary: Patient reports she was admitted to [facility] for uncontrolled Afib after two ablations and multiple cardioversion's. She underwent a procedure for a Pacemaker/ICD. She is feeling so much better, she reports. Patient follows Cardiology at [facility] and with [facility] for the device. Her device is monitored by [facility], she reports. Follow up Hospital DC appt in place with PCP and Cardiology with [facility] and [facility]. No acute or worsening symptoms nor further questions at this time. Patient discharged from [facility] Discharge date: 10/08/24 Admitted for: Uncontrolled AFib Readmission Risk: NA Value-Based Contract: [employer] MANN Contact: Contact made with patient: Yes Hi, my name is Maya Velazquez RN and I am calling from the [facility] on behalf of your Primary Care Provider, Minerva Shaver MD. I understand you were recently in the hospital, so I am calling to check in with you to ensure you are feeling well now that you are home. May I ask you a few questions related to your hospital stay and well-being? Yes Spoke to: Patient Validation: Validated the person spoken to is actively involved in the patient's care. The patient was identified by Name and Date of . Symptoms: Are you feeling about the same, better or worse since leaving the hospital? Better Medications: Do you have any questions about taking your medications, including which medications you should be on, or do you need refills on your medications? No Medication Review: Partial mediation review completed, per patient preference Discharge Instructions: Your Discharge Instructions / After Visit Summary (AVS) are important in guiding you through the recovery process. Do you have any questions related to your discharge instructions? No Home Care: Were you discharged with home care? No Equipment: Do you have all the necessary equipment and supplies needed at your home? Not applicable Social: Your mental health is as important to us as your physical health. Would you mind answering a few questions on this topic? Yes On the Storyboard review: Food Insecurity, Transportation, Depression, Housing, and Financial Strain: Complete any SDOHs, listed above, if not addressed in the past 3 months. If all SDOHs, listed above, have been addressed within the last 3 months, confirm responses and update any SDOHs that have changed. Action Taken: No needs verbalized. No action required. Follow-Up Appointment: [Appointment / TCM Follow-up within 14 days] I would like to help you schedule a hospital follow-up virtual or telephone visit with your PCP. This is a great way for you to connect with your provider to ensure you have safely transitioned home. If you are agreeable, I will send your request to a operating room scheduler who will contact and assist you with that appointment. This will give you an opportunity to ask any questions or address any concerns you may have with your PCP. Inform the patient that if they have any questions or concerns prior to that appointment, to call their PCP's office right away. Appointment Action: No action required; patient already has appointment scheduled. Education details: Patient and family educated on issues/questions related to reason for admission, transition of care topics, and follow-up needed upon discharge. Utilization Education - Where to go for Care Where to Go for Care Maya Velazquez RN October 11, 2024 10:12 AM documented in this encounter [facility] 10-11-2024 Note Patient Outreach ([facility]) ELIZABETH PERSAUD ([id number]) 1945 F [facility] Date Time Provider Department 10/11/24 MAYA VELAZQUEZ [facility] During your visit today, we recorded the following information about you: Maya Velazquez RN 10/11/2024 10:31 AM Signed Transition Care Management (TCM) Initial Outreach PCP Update / Actionable Items HRTIC TCM Home Visit Referral Source of Stratification: [facility] Hospital Admission Status: Discharged Readmission Risk Score: NA Patient's zip code: [address] Is zip code within program service area: Y Patient meets program referral criteria: No Patient does not qualify for High Risk TCM Home Visit program due to: Readmission Risk Score does not meet criteria Disposition: Patient does not qualify for HRTIC, will provide TCM outreach follow-up for 30-days Patient Source: [id number] (OON) Discharge Outreach Summary: Patient reports she was admitted to [facility] for uncontrolled Afib after two ablations and multiple cardioversion's. She underwent a procedure for a Pacemaker/ICD. She is feeling so much better, she reports. Patient follows Cardiology at [facility] and with [facility] for the device. Her device is monitored by [facility], she reports. Follow up Hospital DC appt in place with PCP and Cardiology with [facility] and [facility]. No acute or worsening symptoms nor further questions at this time. Patient discharged from [facility] Discharge date: 10/08/24 Admitted for: Uncontrolled AFib Readmission Risk: NA Value-Based Contract: [employer] MANN Contact: Contact made with patient: Yes Hi, my name is Maya Velazquez RN and I am calling from the [facility] on behalf of your Primary Care Provider, Minerva Shaver MD. I understand you were recently in the hospital, so I am calling to check in with you to ensure you are feeling well now that you are home. May I ask you a few questions related to your hospital stay and well-being? Yes Spoke to: Patient Validation: Validated the person spoken to is actively involved in the patient's care. The patient was identified by Name and Date of . Symptoms: Are you feeling about the same, better or worse since leaving the hospital? Better Medications: Do you have any questions about taking your medications, including which medications you should be on, or do you need refills on your medications? No Medication Review: Partial mediation review completed, per patient preference Discharge Instructions: Your Discharge Instructions / After Visit Summary (AVS) are important in guiding you through the recovery process. Do you have any questions related to your discharge instructions? No Home Care: Were you discharged with home care? No Equipment: Do you have all the necessary equipment and supplies needed at your home? Not applicable Social: Your mental health is as important to us as your physical health. Would you mind answering a few questions on this topic? Yes On the Storyboard review: Food Insecurity, Transportation, Depression, Housing, and Financial Strain: Complete any SDOHs, listed above, if not addressed in the past 3 months. If all SDOHs, listed above, have been addressed within the last 3 months, confirm responses and update any SDOHs that have changed. Action Taken: No needs verbalized. No action required. Follow-Up Appointment: [Appointment / TCM Follow-up within 14 days] I would like to help you schedule a hospital follow-up virtual or telephone visit with your PCP. This is a great way for you to connect with your provider to ensure you have safely transitioned home. If you are agreeable, I will send your request to a operating room scheduler who will contact and assist you with that appointment. This will give you an opportunity to ask any questions or address any concerns you may have with your PCP. Inform the patient that if they have any questions or concerns prior to that appointment, to call their PCP's office right away. Appointment Action: No action required; patient already has appointment scheduled. Education details: Patient and family educated on issues/questions related to reason for admission, transition of care topics, and follow-up needed upon discharge. Utilization Education - Where to go for Care Where to Go for Care Maya Velazquez RN October 11, 2024 10:12 AM Allergies As of Date: 10/11/2024 Noted Allergy Reaction CARDIZEM (DILTIAZEM HCL) 01/18/2015 7 - Swelling CODEINE 01/21/2006 11 - Vomiting Comments: Ringing in Ears. ENTEX (PHENYLEPHRINE-GUAIFENESIN) 03/06/2007 2 - Rash ETODOLAC 07/06/2012 14 - Other: See Comments Comments: Heart palpitations MELOXICAM 05/25/2012 14 - Other: See Comments Comments: Heart palpitations NAPROXEN 01/29/2011 7 - Swelling Comments: Possible allergy? Pt relates to naproxen TAPE (ADHESIVE TAPE (RO (more content not included)... [facility] 10-08-2024 Nurse Note AVS printed and reviewed with patient. PM education completed. IV and telemetry discontinued. Patient going to discharge suite. [facility] 10-08-2024 Miscellaneous Notes AVS printed and reviewed with patient. PM education completed. IV and telemetry discontinued. Patient going to discharge suite. Problem: Dysrhythmia Goal: Normalized Cardiac Rhythm Outcome: Not Progressing Intervention: Monitor and Manage Cardiac Rhythm Effect Flowsheets (Taken 10/04/2024 0741) VTE Prevention/Management: N/A - Pharmacologic Intervention (No Mechanical Prophylaxis - Therapeutic Anticoagulation) Note: Patient awaiting for RFA and PPM Problem: Breathing Pattern Ineffective Goal: Effective Breathing Pattern Outcome: Progressing Intervention: Promote Improved Breathing Pattern Flowsheets (Taken 10/04/2024 0919) Airway/Ventilation Management: airway patency maintained calming measures promoted Patient remains AF HR: 125-163, IV Metoprolol given as charted. Problem: Adult Inpatient Plan of Care Goal: Plan of Care Review Outcome: Progressing Goal: Patient-Specific Goal (Individualized) Outcome: Progressing Goal: Readiness for Transition of Care Outcome: Progressing Problem: Dysrhythmia Goal: Normalized Cardiac Rhythm Outcome: Not Progressing Intervention: Monitor and Manage Cardiac Rhythm Effect Flowsheets (Taken 10/02/2024 0754) VTE Prevention/Management: N/A - Pharmacologic Intervention (No Mechanical Prophylaxis - Therapeutic Anticoagulation) Note: Medications given as charted. Awaiting for ablation. documented in this encounter [facility] 10-08-2024 History of Presen t illness Narrative Care Management Discharge Note Patient will discharge home. Transport Request Mode of Transfer: Private Vehicle Patient medically stable for discharge per physician/medical team. Patient/Operations Vice President remain in agreement with the discharge plan. KHUSHBU Cabral, RN Clinical Energy Economist Available by secure chat. Electrophysiology Consult SIGN OFF - device looks good. Device clnic follow up. No need for EP clinic follow-up. Thank you for allowing us to participate in the care of Elizabeth Persaud. Our consult team will sign off today, 10/08/24. For our full impression and recommendations, please see our most recent consult / progress note. Regarding follow up, please note the following: Follow Up Appointments Patient requires follow up with the device clinic (this is separate from EP follow up) Follow Up Testing No additional testing is required at the follow up visit. Medication Changes No changes were made to patient's cardiovascular medications. If you have any further questions regarding the care of this patient, please do not hesitate to reach out to our team. Saul Craig MD 10/08/24 11:29 AM Care Management Progress Note Expected Discharge Date: 10/08/2024 Referred Level of Care: Home Barriers: Medical readiness Current Referrals and Status None required CM following for potential discharge planning needs. AV Node Ablation and PM Generator Implant today with EP. Leonora ROSE-S Energy Economist [facility] Medicine Progress Note Patient: Elizabeth Persaud, : 1945, Impression / Plan Elizabeth Persaud is a 79 year-old female with a PMH of Persistent A Fib, Atrial Flutter, Chronic HFmrEF, HTN, HLD, TIA, COPD, and GERD who is admitted for uncontrolled A Fib with RVR. Awaiting AVN ablation and PPM placement. Course complicated by pyelonephritis. Persistent A Fib with RVR Patient has had multiple ablations and DCCV in the past, most recently had DCCV in [place] on 09/30/24, returned to RVR after 5 hours. EKG on admission reveals A Fib with RVR with VR 141. Trial IV Metop 5 mg x 3 doses to control HR below 120; will avoid CCB given her mildly reduced EF. [id number] Score: 7 (for CHF, HTN, age, TIA and gender). - [id number] 7 - Continue Home Toprol XL 75 mg q12h - AVN ablation on 10/07, therefore discontinued Tikosyn 125 mg q12h - EP consulted, appreciate recs - Planning for AV node ablation and pacemaker today - Hold DOAC starting on 10/04, Bridge with heparin ggt, resume Apixaban 5 mg BID for stroke risk reduction on DC - Will restart apixaban post ablation and PPM placement Pyelonephritis due to klebsiella (POA), improving Dysuria and flank pain. Symptoms resolved. Initially on ceftriaxone, switch to levofloxacin EOT 10/06. Completed 5 days of abx. Leukocytosis on 10/07 improving and patient denies any symptoms. - Monitor for symptoms and CBC Chronic HmrEF Hypertension Last TTE 04/14/24: EF 40-45%, normal RV size with mild to moderate RV dysfunction. - Not in acute exacerbation - continue Home diuretics Lasix 60 mg Daily - Spironolactone 25 mg Daily - Jardiance 10 mg Daily held while NPO - Continue Toprol XL 75 mg Q12H as above Bilateral lower extremity neuropathy: Continue home gabapentin COPD: Breztri substitute for home trilogy Ellipta GERD: PPI Daily Vitamin-D deficiency: Continue daily supplement Allergic Rhinitis: Flonase Daily and Zina daily Continue multivitamin and other outpatient vitamins Complexity. Wound Documentation Pacemaker/Defibrillator Site 10/07/241335 (Active) Placement Date/Time: 10/07/241335 Location: left upper chest Any conditions listed below are present on admission unless otherwise specified. . Patient has implanted cardiac device DVT prophylaxis with SCD Anticipated Disposition: Home after AVN and PPM placement Code status is Full Code Jessica Ley MD [facility] Medicine Interval History / Subjective Has been NPO since midnight. Does have swelling in her legs, which she reports is normal for her if she sits a good amount. Objective Temp: [97.5 F (36.4 C)-98 F (36.7 C)] 97.9 F (36.6 C) Pulse (Heart Rate): [89-169] 89 Resp Rate: [16-19] 19 BP: (104-129)/(61-92) 106/63 O2 Sat (%): [92 %-96 %] 92 % Weight: [63.5 kg (140 lb)] 63.5 kg (140 lb) Physical Exam Gen: A, A, NAD ENT: MMM Resp: On room air, CTA bilat, normal effort Cardio: RRR, normal S1, S2, Bilateral lower extremity edema to mid shankar GI: S/NT/ND, NABS Psych: Ox3, appropriate affect and cognition Data Review WBC/Hgb/Hct/Plts: 11.35/12.8/39.7/241 (10/08 303) Na/K+/Phos/Mg/Ca: 139/4.1/--/--/-- (10/08 303) Bun/Creat/Cl/CO2/Glucose: 43/1.15/104/24/-- (10/08 303) Ptt/Pt/Inr: 95.1/13.7/1.1 (10/08 303-10/07 1017) Cosigned by Pedro Beal MD at 10/07/2024 2:44 PM EDT Associated attestation - Pedro Beal MD - 10/07/2024 2:44 PM EDT ATTENDING ATTESTATION I saw and evaluated the patient independently today 10/07/2024. I discussed the plan of care with the resident. I have reviewed the history, exam, and medical decision making and I agree w/ the findings and plans as documented (with noted additions below). Remains symptomatic from afib with RVR - SOB, fatigue. No further flank pain, no dysuria. On exam she is well-appearing, tachy with irregular rhythm, lungs are CTAB, 2+ distal edema. 79yo woman with PMH s/f persistent afib/aflutter s/p multiple ablations and DCCVs presenting with afib with RVR and found to have pyelonephritis 2/2 Klebsiella. She is s/p treatment for pyelo and remains in RVR with plants for ablation and PPM today with EP. Continue heparin gtt, EP to perform ablation and PPM today Continue GDMT S/p 5d treatment for pyelo Department of Pharmacy Admission Medication Reconciliation Note Patient: Elizabeth Persaud Room/Bed: 7006/A I have reviewed the patient's home medication list with the following sources Patient recall with prompting, Dispense Report, and [facility] IHIS Review. I have also reviewed this list with the pharmacist. A call to the pharmacy was not needed because the information compiled from listed sources corroborates the patient/caregiver interview. I am recommending the following changes to the home medication list. These recommendations are considered preliminary until attestation of this note by a pharmacist. Added to Home Medications: Sucralfate 1 gm / 10 mL susp Deleted from Home Medications: None Edits to Home Medications: None Other Comments: The patient's allergies were not reviewed at this time. Patient receives discounts on her prescriptions through the [facility] for 90 day supplies Furosemide - Patient also has 40 mg tablets at home - reports taking 60 mg daily Metoprolol succinate - Dose had changed multiple times prior to admission, most recent home dose was 50 mg twice daily, but only took this dose for a few days HEALTHCARE TECHNICIAN Please feel free to contact me with any further questions. Name: Lázaro Mata Phone #: [phone] Date/Time: 10/07/2024 8:54 AM Time Spent: 25 minutes Cosigned by Davin Davis RPH at 10/07/2024 11:10 AM EDT Associated attestation - Davin Davis RPH - 10/07/2024 11:10 AM EDT Department of Pharmacy Admission Medication Reconciliation Note Patient: [facility] I have reviewed the home medication list with the Resources Representative. The home medication list status is: complete. All changes to the home medication list have been updated in IHIS. Updated HEALTHCARE TECHNICIAN Med List: Prior to Admission Medications Prescriptions Ascorbic Acid (Vitamin C) 1000 MG tablet Sig: Take 1 tablet by mouth daily. Bacillus Coagulans-Inulin (PROBIOTIC-PREBIOTIC PO) Sig: Take 1 capsule by mouth daily. CALCIUM MAGNESIUM ZINC PO Sig: Take 1 tablet by mouth daily. Cholecalciferol (VITAMIN D-3 PO) Sig: Take 1 tablet by mouth daily. Cyanocobalamin (VITAMIN B-12 PO) Sig: Take 1 tablet by mouth daily. Dofetilide 125 MCG capsule Sig: Take 1 capsule by mouth every 12 hours. If 3 doses are missed, contact the prescribing title curator as soon as possible. Empagliflozin (Jardiance) 10 MG tablet Sig: Take 1 tablet by mouth daily. Ferrous Sulfate (IRON PO) Sig: Take 1 tablet by mouth daily. Fexofenadine HCl (ZINA ALLERGY PO) Sig: Take 180 mg by mouth daily. Gabapentin 100 MG capsule Sig: Take 1 capsule by mouth 3 times daily. Ipratropium 17 MCG/ACT Aero Soln inhaler Sig: Inhale 2 puffs every 6 hours. max 12 inhalations/day Melatonin Gummies 5 MG Chew Tab Sig: Chew 2 tablets at bedtime. Metoprolol succinate 50 MG tablet XL Sig: Take 1.5 tablets by mouth daily. Patient taking differently: Take 1 tablet by mouth 2 times daily. Multiple Vitamin (MULTI-DAY PO) Sig: Take 1 tablet by mouth daily. Spironolactone 25 MG tablet Sig: Take 1 tablet by mouth daily. Sucralfate 1 GM/10ML oral suspension Sig: Take 10 mL by mouth every 6 hours as needed. apixaban 5 MG tablet Sig: Take 1 tablet by mouth every 12 hours. fluticasone 50 MCG/ACT Suspension nasal spray Si sprays by Nasal route daily. iybkqxdnudi-rtbxkeohk-Fyodcb (Trelegy Ellipta) 100-62.5-25 MCG/ACT Aerosol Powder, breath activated inhaler Sig: Inhale 1 puff daily. furOSEmide 20 MG tablet Sig: Take 3 tablets by mouth daily. Note (10/07/2024): Patient also has 40 mg tablets at home - reports taking 60 mg daily omeprazole [address] capsule Sig: Take 1 capsule by mouth daily. Facility-Administered Medications: None Please feel free to contact me with any further questions. Name: Davin Davis [facility] Phone #: [phone] Date/Time: 10/07/2024 11:10 AM [facility] Medicine Progress Note Patient: Elizabeth Persaud, : 1945, Impression / Plan MS. Elizabeth Persaud is a 79 year-old female with a PMH of Persistent A Fib, Atrial Flutter, Chronic HFmrEF, HTN, HLD, TIA, COPD, and GERD who is admitted for uncontrolled A Fib with RVR. Awaiting AVN ablation and PPM placement. Course complicated by pyelonephritis. Persistent A Fib with RVR - Patient has had multiple ablations and DCCV in the past, most recently had DCCV in [place] on 09/30/24, returned to RVR after 5 hours - EKG on admission reveals A Fib with RVR with VR 141 - Trial IV Metop 5 mg x 3 doses to control HR below 120; will avoid CCB given her mildly reduced EF - Continue Home Toprol XL 50 mg q12h. Stopping Tikosyn 125 mg q12h - [id number] Score: 7 (for CHF, HTN, age, TIA and gender). - EP consulted, appreciate recs - Planning for AV node ablation and pacemaker next week. - Hold DOAC starting on 10/04, Bridge with heparin ggt, resume Apixaban 5 mg BID for stroke risk reduction on DC Pyelonephritis due to klebsiella (POA) - dysuria and flank pain. Symptoms resolved - initially on ceftriaxone, switch to levofloxacin EOT 10/06. Completed 5 days of abx. - Initial plan was for 5 days of antibiotics given complete resolution of symptoms and leukocytosis with PM placement on 10/07. On 10/06, CBC drawn for heparin ggt shows leukocytosis. If this continues to rise, consider extending duration. Chronic HmrEF Hypertension Last TTE 04/14/24: EF 40-45%, normal RV size with mild to moderate RV dysfunction. - Not in acute exacerbation - continue Home diuretics Lasix 60 mg Daily - Spironolactone 25 mg Daily held, Jardiance 10 mg Daily also held while NPO - Continue Beta karson as above COPD - Breztri substitute for home trilogy Ellipta GERD - PPI Daily Vitamin-D deficiency - continue daily supplement Allergic Rhinitis - Flonase Daily and Zina daily Complexity. Wound Documentation Any conditions listed below are present on admission unless otherwise specified. DVT prophylaxis with Eliquis (A Fib) Anticipated Disposition: Inpatient admission for above, home at discharge Code status is Full Code Complexity. Wound Documentation Any conditions listed below are present on admission unless otherwise specified. DVT prophylaxis with DOAC Anticipated Disposition: home Code status is Full Code Interval History / Subjective No new issues. CVA tenderness resolved. Awaiting procedure Objective Temp: [97.6 F (36.4 C)-98.1 F (36.7 C)] 98 F (36.7 C) Pulse (Heart Rate): [126-164] 141 Resp Rate: [15-16] 16 BP: (100-124)/(61-84) 124/61 O2 Sat (%): [95 %-98 %] 95 % Weight: [62.5 kg (137 lb 12.8 oz)] 62.5 kg (137 lb 12.8 oz) Physical Exam Gen: A, A, NAD ENT: MMM Resp: CTA bilat, normal effort Cardio: tachycardic, normal S1, S2, No PATI GI: S/NT/ND, NABS Psych: Ox3, appropriate affect and cognition Data Review WBC/Hgb/Hct/Plts: 13.16/13.9/42.9/320 (10/06 1328) Na/K+/Phos/Mg/Ca: 141/4.5/--/--/-- (10/06 554) Bun/Creat/Cl/CO2/Glucose: 37/0.84/106/25/-- (10/06 554) Ptt/Pt/Inr: 27.4/--/-- (10/06 1328) [facility] Medicine Progress Note Patient: Elizabeth Persaud, : 1945, Impression / Plan MS. Elizabeth Persaud is a 79 year-old female with a PMH of Persistent A Fib, Atrial Flutter, Chronic HFmrEF, HTN, HLD, TIA, COPD, and GERD who is admitted for uncontrolled A Fib with RVR. Persistent A Fib with RVR - Patient has had multiple ablations and DCCV in the past, most recently had DCCV in [place] on 09/30/24, returned to RVR after 5 hours - EKG on admission reveals A Fib with RVR with VR 141 - Trial IV Metop 5 mg x 3 doses to control HR below 120; will avoid CCB given her mildly reduced EF - Continue Home Toprol XL 50 mg q12h. Stopping Tikosyn 125 mg q12h - [id number] Score: 7 (for CHF, HTN, age, TIA and gender). - EP consulted, appreciate recs - Planning for AV node ablation and pacemaker next week. - Hold DOAC starting on 10/04, resume Apixaban 5 mg BID for stroke risk reduction on DC Pyelonephritis due to klebsiella - dysuria and flank pain. - initially on ceftriaxone, switch to levofloxacin EOT 10/08 Chronic HmrEF Hypertension Last TTE 04/14/24: EF 40-45%, normal RV size with mild to moderate RV dysfunction. - Not in acute exacerbation - continue Home diuretics Lasix 60 mg Daily - Spironolactone 25 mg Daily held, Jardiance 10 mg Daily also held while NPO - Continue Beta karson as above COPD - Breztri substitute for home trilogy Ellipta GERD - PPI Daily Vitamin-D deficiency - continue daily supplement Allergic Rhinitis - Flonase Daily and Zina daily Complexity. Wound Documentation Any conditions listed below are present on admission unless otherwise specified. . DVT prophylaxis with Eliquis (A Fib) Anticipated Disposition: Inpatient admission for above, home at discharge Code status is Full Code Complexity. Wound Documentation Any conditions listed below are present on admission unless otherwise specified. DVT prophylaxis with DOAC Anticipated Disposition: home Code status is Full Code Interval History / Subjective No new issues. CVA tenderness improved. Awaiting procedure Objective Temp: [97.4 F (36.3 C)-97.9 F (36.6 C)] 97.9 F (36.6 C) Pulse (Heart Rate): [121-152] 145 Resp Rate: [16-18] 18 BP: (106-122)/(74-83) 111/76 O2 Sat (%): [97 %-98 %] 98 % Weight: [63.4 kg (139 lb 11.2 oz)] 63.4 kg (139 lb 11.2 oz) Physical Exam Gen: A, A, NAD ENT: MMM Resp: CTA bilat, normal effort Cardio: tachycardic, normal S1, S2, No PATI GI: S/NT/ND, NABS Psych: Ox3, appropriate affect and cognition Data Review WBC/Hgb/Hct/Plts: 12.05/13.4/41.0/255 (10/05 626) Na/K+/Phos/Mg/Ca: 140/3.6/--/--/-- (10/05 626) Bun/Creat/Cl/CO2/Glucose: 41/0.94/107/21/-- (10/05 626) Ptt/Pt/Inr: 28.3/14.6/1.1 (10/05 626) Inpatient Cardiopulmonary Rehab Consultation Completed. RN approved, as tolerated, and patient agreeable to visit. Patient reports feeling fine without complaints. Activity Session: Patient telemetry showing Afib RVR at this time. Scheduled pacemaker for later this admission. Will follow up for activity whenever able. RN notified/aware. Encouraged continued ambulation and discussed appropriate activity progression. Patient participation in outpatient pulmonary rehab was discussed s/p COPD dx. Patient is interested in participating in rehab at their local facility: [facility]. AMB REFERRAL TO PULMONARY REHAB HAS BEEN PENDED. PLEASE REVIEW AND SIGN ORDER PRIOR TO DISCHARGE SO THE AMB REFERRAL CAN BE SENT TO APPROPRIATE FACILITY BY THE INPATIENT REHAB TEAM. Discharge education provided to the patient. Printed materials provided/reviewed: COPD management book. Patient s questions/concerns were addressed and topics below were discussed. 1. Activity Guidelines/Recommendations 2. Nutrition 3. Medications 4. Self-Management 5. Treatments 6. Signs/Symptoms to Monitor/Report We will continue to follow up with patient as needed until discharge for education review and activity progression. Candida Joe MS CEP Inpatient Cardiopulmonary & Vascular Rehab [facility] Medicine Progress Note Patient: Elizabeth Persaud, : 1945, Impression / Plan MS. Elizabeth Persaud is a 79 year-old female with a PMH of Persistent A Fib, Atrial Flutter, Chronic HFmrEF, HTN, HLD, TIA, COPD, and GERD who is admitted for uncontrolled A Fib with RVR. Persistent A Fib with RVR - Patient has had multiple ablations and DCCV in the past, most recently had DCCV in [place] on 09/30/24, returned to R after 5 hours - EKG on admission reveals A Fib with RVR with VR 141 - Trial IV Metop 5 mg x 3 doses to control HR below 120; will avoid CCB given her mildly reduced EF - Continue Home Toprol XL 50 mg q12h and Tikosyn 125 mg q12h - Continue Apixaban 5 mg BID for stroke risk reduction with [id number] Score: 7 (for CHF, HTN, age, TIA and gender). - EP consulted, appreciate recs - Planning for AV node ablation and pacemaker next week. - Hold DOAC starting on 10/04 Acute cystitis due to klebsiella - Reports her urine being warmer than usual for past 2 weeks, no prior history of UTI - Afebrile and no leukocytosis - continue ceftriaxone Chronic HmrEF Hypertension Last TTE 04/14/24: EF 40-45%, normal RV size with mild to moderate RV dysfunction. - Not in acute exacerbation - Compliant with Home diuretics Lasix 60 mg Daily, held while NPO - Spironolactone 25 mg Daily, Jardiance 10 mg Daily also held while NPO - Continue Beta karson as above COPD - Breztri substitute for home trilogy Ellipta GERD - PPI Daily Vitamin-D deficiency - continue daily supplement Allergic Rhinitis - Flonase Daily and Zina daily Complexity. Wound Documentation Any conditions listed below are present on admission unless otherwise specified. . DVT prophylaxis with Eliquis (A Fib) Anticipated Disposition: Inpatient admission for above, home at discharge Code status is Full Code Complexity. Wound Documentation Any conditions listed below are present on admission unless otherwise specified. DVT prophylaxis with DOAC Anticipated Disposition: home Code status is Full Code Interval History / Subjective No new issues. CVA tenderness improved Objective Temp: [97.5 F (36.4 C)-98.5 F (36.9 C)] 97.9 F (36.6 C) Pulse (Heart Rate): [121-166] 166 Resp Rate: [16-18] 16 BP: (84-125)/(60-86) 118/65 O2 Sat (%): [96 %-98 %] 97 % Weight: [64 kg (141 lb 3.2 oz)] 64 kg (141 lb 3.2 oz) Physical Exam Gen: A, A, NAD ENT: MMM Resp: CTA bilat, normal effort Cardio: tachycardic, normal S1, S2, No PATI GI: S/NT/ND, NABS Psych: Ox3, appropriate affect and cognition Data Review WBC/Hgb/Hct/Plts: 10.50/12.9/40.5/243 (10/04 28) Na/K+/Phos/Mg/Ca: 138/4.6/--/2.2/-- (10/04 28-10/04 256) Bun/Creat/Cl/CO2/Glucose: 37/0.82/106/22/-- (10/04 28) Hospital Medicine Progress Note Patient: Elizabeth Persaud, : 1945, Impression / Plan MS. Elizabeth Persaud is a 79 year-old female with a PMH of Persistent A Fib, Atrial Flutter, Chronic HFmrEF, HTN, HLD, TIA, COPD, and GERD who is admitted for uncontrolled A Fib with RVR. Persistent A Fib with RVR - Patient has had multiple ablations and DCCV in the past, most recently had DCCV in [place] on 09/30/24, returned to RVR after 5 hours - EKG on admission reveals A Fib with RVR with VR 141 - Trial IV Metop 5 mg x 3 doses to control HR below 120; will avoid CCB given her mildly reduced EF - Continue Home Toprol XL 50 mg q12h and Tikosyn 125 mg q12h - Continue Apixaban 5 mg BID for stroke risk reduction with [id number] Score: 7 (for CHF, HTN, age, TIA and gender). - EP consulted, appreciate recs - Planning for AV node ablation and pacemaker next week. - Hold DOAC starting on 10/04 Acute cystitis - Reports her urine being warmer than usual for past 2 weeks, no prior history of UTI - Afebrile and no leukocytosis - continue ceftriaxone and follow up urine culture Chronic HmrEF Hypertension Last TTE 04/14/24: EF 40-45%, normal RV size with mild to moderate RV dysfunction. - Not in acute exacerbation - Compliant with Home diuretics Lasix 60 mg Daily, held while NPO - Spironolactone 25 mg Daily, Jardiance 10 mg Daily also held while NPO - Continue Beta karson as above COPD - Breztri substitute for home trilogy Ellipta GERD - PPI Daily Vitamin-D deficiency - continue daily supplement Allergic Rhinitis - Flonase Daily and Zina daily Complexity. Wound Documentation Any conditions listed below are present on admission unless otherwise specified. . DVT prophylaxis with Eliquis (A Fib) Anticipated Disposition: Inpatient admission for above, home at discharge Code status is Full Code Complexity. Wound Documentation Any conditions listed below are present on admission unless otherwise specified. DVT prophylaxis with DOAC Anticipated Disposition: home Code status is Full Code Interval History / Subjective No new issues. Some dizziness when HR >160 Objective Temp: [97.4 F (36.3 C)-98 F (36.7 C)] 97.6 F (36.4 C) Pulse (Heart Rate): [107-159] 107 Resp Rate: [16-20] 18 BP: (107-150)/(67-94) 123/85 O2 Sat (%): [95 %-97 %] 97 % Weight: [62.5 kg (137 lb 11.2 oz)] 62.5 kg (137 lb 11.2 oz) Physical Exam Gen: A, A, NAD ENT: MMM Resp: CTA bilat, normal effort Cardio: tachycardic, normal S1, S2, No PATI GI: S/NT/ND, NABS Psych: Ox3, appropriate affect and cognition Data Review Discharge Planning Assessment Is the patient able to participate in the assessment?: Yes Discharge Planning Summary 1. Plan at this time is discharge home with family support 2. [facility], support system and will Provide transportation. 3. Patient assessment completed. Case Management Plan 1. Identified self and role as Line Technician. 2. Confirmed and updated demographics and treatment team. 3. Line Technician will continue to follow with medical team for any other additional discharge needs. Initial Discharge Planning Expected Discharge Disposition: Home Transportation Available for Discharge: Private Vehicle, Family or Friend Anticipated DME: none Anticipated Services at Discharge: Outpatient follow up Patient Assessment Completed: Initial Legal Next of Kin Does the patient have a Guardian?: No Spouse: No Adult Child(katia), List All Adult Children: Yes Name and Contact information: info not provided Would you like to add additional adult children?: No Nearest Adult Related by Blood or Adoption: Yes Name and Contact information: Dickson Andrade [phone] [facility] Referral to Social Work to Identify Legal Next of Kin?: No Reviewed and Updated in Demographics? : Yes Advanced Care Planning Has the patient completed Advance Directives?: Completed, Available in Medical Record Reviewed for accuracy with patient?: Yes Advanced Directives on File: HealthCare Power of Harness Placer, Living Will Medication Management Does the patient have prescription insurance coverage? : Yes Is the patient on Anticoagulation? : Yes Provider or Clinic that manages Anticoagulation?: [facility] [place] [address] [phone] [facility] [id number] Living Environment and Support System Is the patient from a facility or correction?: No Living Environment: House Patient Caregiving Responsibilities: Self Patient-identified caregiver/support network: Family Who does the patient identify as a teachable caregiver(s)?: Other Family Services Does the patient use a home health or hospice agency?: No Current with dialysis?: No Does the patient use any community programs or services?: No Does patient use DME? : none Does the patient use oxygen?: Yes Oxygen Provider and Contact : [employer] Liter-Flow?: 1 L/NC Order for oxygen use?: prn Portable tank?: No Does patient use medical supplies? : none Anticipated Changes Related to Illness/Injury? : No Initial ADLs Prior to Arrival What is the patient's baseline physical functioning prior to this acute illness?: independent What is the patient's baseline cognitive functioning prior to this acute illness?: independent Is the patient's baseline functioning changed by this acute illness? : No Concerns with patient being able to care for themselves at home? : No Senior Adults Director Does the patient or business development representative express financial concerns? : No Janneth RÍOS RN Clinical Line Technician Please note that I am a float rehabilitation caseworker and may not cover the same service every day. Please call the main Case Management office at [phone] for up-to-date coverage. Verified patients identity using date of . Appropriate PPE utilized. Hospital Medicine Progress Note Patient: Elizabeth Persaud, : 1945, Impression / Plan MS. Elizabeth Persaud is a 79 year-old female with a PMH of Persistent A Fib, Atrial Flutter, Chronic HFmrEF, HTN, HLD, TIA, COPD, and GERD who is admitted for uncontrolled A Fib with RVR. Persistent A Fib with RVR - Patient has had multiple ablations and DCCV in the past, most recently had DCCV in [place] on 09/30/24, returned to RVR after 5 hours - EKG on admission reveals A Fib with RVR with VR 141 - Trial IV Metop 5 mg x 3 doses to control HR below 120; will avoid CCB given her mildly reduced EF - Continue Home Toprol XL 50 mg q12h and Tikosyn 125 mg q12h - Continue Apixaban 5 mg BID for stroke risk reduction with [id number] Score: 7 (for CHF, HTN, age, TIA and gender). - EP consulted, appreciate recs - Planning for AV node ablation and pacemaker next week. - Hold DOAC starting on Acute cystitis - Reports her urine being warmer than usual for past 2 weeks, no prior history of UTI - Afebrile and no leukocytosis - continue ceftriaxone and follow up urine culture Chronic HmrEF Hypertension Last TTE 04/14/24: EF 40-45%, normal RV size with mild to moderate RV dysfunction. - Not in acute exacerbation - Compliant with Home diuretics Lasix 60 mg Daily, held while NPO - Spironolactone 25 mg Daily, Jardiance 10 mg Daily also held while NPO - Continue Beta karson as above COPD - Breztri substitute for home trilogy Ellipta GERD - PPI Daily Vitamin-D deficiency - continue daily supplement Allergic Rhinitis - Flonase Daily and Zina daily Complexity. Wound Documentation Any conditions listed below are present on admission unless otherwise specified. . DVT prophylaxis with Eliquis (A Fib) Anticipated Disposition: Inpatient admission for above, home at discharge Code status is Full Code Complexity. Wound Documentation Any conditions listed below are present on admission unless otherwise specified. DVT prophylaxis with DOAC Anticipated Disposition: home Code status is Full Code Interval History / Subjective Still with some left sided back pain. Otherwise, no issues Objective Temp: [97.7 F (36.5 C)-98.2 F (36.8 C)] 97.8 F (36.6 C) Pulse (Heart Rate): [120-158] 149 Resp Rate: [16-21] 16 BP: (115-140)/(76-93) 135/80 O2 Sat (%): [93 %-96 %] 95 % Weight: [62.5 kg (137 lb 11.2 oz)] 62.5 kg (137 lb 11.2 oz) Physical Exam Gen: A, A, NAD ENT: MMM Resp: CTA bilat, normal effort Cardio: tachycardic, normal S1, S2, No PATI GI: S/NT/ND, NABS Psych: Ox3, appropriate affect and cognition Data Review WBC/Hgb/Hct/Plts: 10.70/13.8/43.2/304 (10/01 2144) Na/K+/Phos/Mg/Ca: 140/4.8/4.1/2.2/9.5 (10/01 2144) Bun/Creat/Cl/CO2/Glucose: 34/0.89/103/24/99 (10/01 2144) Ptt/Pt/Inr: 27.5/13.9/1.1 (10/01 2144) documented in this encounter [facility] 10-06-2024 Hospital Discharg e instructions Jessica Ley MD - 10/06/2024 2:53 PM EDT You were here for your atrial fibrillation. You had a procedure where they did an ablation in your heart and placed a pacemaker. Below are the only changes in your medications you take at home: Take Metoprolol 50 mg (1 pill) twice a day - a new prescription was sent to your pharmacy DO NOT TAKE the Dofetilide. You can restart the Eliquis in the evening of 10/08. Patient Experience Survey Reminder You may receive a survey in the mail within a few weeks regarding your hospitalization. This helps us to improve the care and services we provide at [facility]. We truly appreciate you taking the time to fill this out. We particularly welcome any specific comments you may have (good or bad!) regarding your experience at [facility] so that we may use them to continue to strive towards excellence for our patients. The following attachments cannot be sent through Care Everywhere.Care After Ablation ([facility]) (Ghanaian)Pacemaker: A Guide to Your ([facility]) (Ghanaian)documented in this encounter [facility] 10-05-2024 Note Patient Outreach (IN TMMN) ELIZABETH PERSAUD ([id number]) 1945 F [facility] Date Time Provider Department 10/05/24 MINERVA SHAVER During your visit today, we recorded the following information about you: Allergies As of Date: 10/05/2024 Noted Allergy Reaction CARDIZEM (DILTIAZEM HCL) 01/18/2015 7 - Swelling CODEINE 01/21/2006 11 - Vomiting Comments: Ringing in Ears. ENTEX (PHENYLEPHRINE-GUAIFENESIN) 03/06/2007 2 - Rash ETODOLAC 07/06/2012 14 - Other: See Comments Comments: Heart palpitations MELOXICAM 05/25/2012 14 - Other: See Comments Comments: Heart palpitations NAPROXEN 01/29/2011 7 - Swelling Comments: Possible allergy? Pt relates to naproxen TAPE (ADHESIVE TAPE (ROSINS)) 03/31/2023 2 - Rash TRAZODONE 08/19/2014 14 - Other: See Comments Comments: rapid hear beat ZANTAC (RANITIDINE HCL) 05/29/2016 2 - Rash 7 - Swelling Date Reviewed: 08/11/2024 Reviewed by: Tamanna Cordova MA - Fully Assessed Visit Diagnoses:CHF (congestive heart failure) (HCC) [I50.9] Medication management [Z79.899] Order(s):BASIC METABOLIC PANEL [SQBMP] Order #: [id number] FUTURE COMPLETE BLOOD COUNT [SQCBC] Order #: [id number] FUTURE MAGNESIUM [SQMG1] Order #: [id number] FUTURE Prescriptions as of 10/08/2024 - fluticasone (FLONASE) 50 mcg/actuation nasal spray Use 2 Sprays in each nostril once daily. Rinse mouth after use. - benzonatate (TESSALON PERLE) 100 mg capsule Take 1 capsule by mouth three times a day as needed. - dofetilide (TIKOSYN) 125 mcg capsule 125 mcg two times a day. - peorwtgybcm-kawvcpmrz-qrzjsoqa (TRELEGY ELLIPTA) 100-62.5-25 mcg inhalation powder Inhale 1 Puff as instructed once daily. - sucralfate (CARAFATE) 100 mg/mL suspension Take 10 mL by mouth before meals and at bedtime. (560cc=2wks) - nystatin (MYCOSTATIN) 100,000 unit/mL suspension Take 5 mL by mouth four times daily. 1tsp swish in mouth for several minutes, then swallow (or expectorate) 4 times daily until gone. - diclofenac, EC, (VOLTAREN) 75 mg EC tablet Takes once daily PRN for acute pain/inflammation. Take with food. - omeprazole (PRILOSEC) 40 mg capsule Take 1 capsule by mouth once daily. - metoprolol succinate ER (TOPROL XL) 50 mg 24 hr tablet Take 1 tablet by mouth two times a day. - JARDIANCE 10 mg tablet Take 10 mg by mouth once daily. - Ipratropium (ATROVENT) 17 mcg/actuation inhaler Inhale 2 Puffs as instructed every 6 hours as needed for wheezing/shortness of breath. - furosemide (LASIX) 40 mg tablet Take 1 tablet by mouth twice daily. - apixaban (ELIQUIS) 5 mg tab(s) Take by mouth twice daily. - Bifidobacterium infantis (ALIGN) 10.5 mg (10 million cell) chew Take 1 tablet by mouth once daily. - potassium chloride ER (K-DUR, KLOR-CON) 20 mEq tablet Take 1 tablet by mouth twice daily. - melatonin 3 mg ODT Take 1 tablet by mouth daily at bedtime. - MULTIVITAMIN WITH MINERALS (ONE-A-DAY 50 PLUS ORAL) Take by mouth. - CALCIUM CARBONATE/VITAMIN D3 (VITAMIN D-3 ORAL) Take 1,000 mg by mouth five times daily. - JPXHLDS-DIHDBEAUV-ZHDW ORAL Take by mouth. Problem List As Of Date 10/05/2024 Noted Resolved PERSISTENT INSOMNIA [G47.00] 07/16/2006 Moses's esophagus [K22.70] 07/16/2006 CALCULUS OF KIDNEY [N20.0] 07/16/2006 Irritable bowel syndrome [K58.9] 07/16/2006 01/10/2016 Tobacco use disorder [F17.200] 07/16/2006 01/10/2016 Pain in joint, shoulder region [M25.519] 06/22/2008 09/25/2015 ANXIETY GENERALIZED [F41.1] 08/31/2008 01/10/2016 Umbilical hernia without mention of obstruction*07/25/2010 09/25/2015 Carpal tunnel syndrome, left [G56.02] 01/30/2012 Carpal tunnel syndrome, right [G56.01] 01/30/2012 01/10/2016 Right shoulder strain [S46.911A] 03/24/2012 09/25/2015 Tendonitis of shoulder, right [M77.8] 05/25/2012 Rotator cuff tear [M75.100] 07/13/2012 Hematuria [R31.9] 06/09/2013 09/25/2015 Smoking history [Z87.891] 06/09/2013 Hypertension [I10] 07/21/2013 Atrial fibrillation (HCC) [I48.91] 08/19/2014 Panlobular emphysema (HCC) [J43.1] 04/28/2015 01/27/2023 Generalized arthritis [M19.90] 09/25/2015 History of DVT (deep vein thrombosis) [Z86.718] 11/10/2015 Encounter for colonoscopy due to history of cony*11/22/2015 11/22/2015 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 [K22.7*11/22/2015 11/22/2015 S/P cervical spinal fusion [Z98.1] 02/14/2016 BCC (basal cell carcinoma of skin) [C44.91] 12/24/2021 Heart murmur [R01.1] 12/24/2021 CHF (congestive heart failure) (HCC) [I50.9] 12/24/2021 Vaginal enterocele due to incomplete uterovagin*12/24/2021 Moderate COPD (chronic obstructive pulmonary di*01/27/2023 Peripheral arterial disease (HCC) [I73.9] 06/30/2023 Encounter Status:Closed by LAURA PIERRER on 10/08/[address] [facility] 10-04-2024 Plan of care note Problem: Dysrhythmia Goal: Normalized Cardiac Rhythm Outcome: Not Progressing Intervention: Monitor and Manage Cardiac Rhythm Effect Flowsheets (Taken 10/04/2024 0747) VTE Prevention/Management: N/A - Pharmacologic Intervention (No Mechanical Prophylaxis - Therapeutic Anticoagulation) Note: Patient awaiting for RFA and PPM Problem: Breathing Pattern Ineffective Goal: Effective Breathing Pattern Outcome: Progressing Intervention: Promote Improved Breathing Pattern Flowsheets (Taken 10/04/2024 0919) Airway/Ventilation Management: airway patency maintained calming measures promoted [facility] 10-02-2024 Plan of care note Patient remains AF HR: 125-163, IV Metoprolol given as charted. Problem: Adult Inpatient Plan of Care Goal: Plan of Care Review Outcome: Progressing Goal: Patient-Specific Goal (Individualized) Outcome: Progressing Goal: Readiness for Transition of Care Outcome: Progressing Problem: Dysrhythmia Goal: Normalized Cardiac Rhythm Outcome: Not Progressing Intervention: Monitor and Manage Cardiac Rhythm Effect Flowsheets (Taken 10/02/2024 0754) VTE Prevention/Management: N/A - Pharmacologic Intervention (No Mechanical Prophylaxis - Therapeutic Anticoagulation) Note: Medications given as charted. Awaiting for ablation. [facility] 10-02-2024 Consult note Associated Order (s): IP CONSULT TO CARDIOLOGY - EP EP CONSULT INITIAL EVALUATION IDENTIFYING DATA PATIENT: Elizabeth Persaud ADMIT DATE: 10/01/2024 TIME OF EVALUATION: 10/02/2024 7:24 AM HOSPITAL STAY: LOS: 1 day CONSULTING SERVICE: [facility] REASON FOR CONSULTATION: afib HISTORY OF PRESENT ILLNESS Elizabeth Persaud is a 79 y.o. female with a past medical history of persistent AF/atypical AFL s/p ablation (2015), repeat ablation in 04/2024 and multiple DCCVs, HFpEF/NICM (EF 60%), TIA (07/2022), COPD, and former nicotine dependence. She has had afib for a decade and trialed flecainide which did not control, amiodarone stopped due to side effects, and most recently on tikosyn. She last had ablation in April but has had difficult to control afib since then requiring multiple DCCV in past few months. Last was on 09/[address] Ibarra, but she went back into afib 5 hours later. She now presents with RVR and feeling poorly. Her last echo showed EF 45% but was in setting of rapid afib. She has been continuously anticoagulated. She reports severe shortness of breath with amiodarone when tried it in the past. ASSESSMENT AND PLAN Elizabeth Persaud is a 79 y.o. female who has the following active issues that are listed below: PerAF and atypical flutter s/p multiple ablations, DCCV, and drug trials HFpEF TIA May stop tikosyn given lack of efficacy. We discussed options for management including repeat ablation attempt or AVN ablation and PPM implant this admission and she prefers second option. Will plan for procedure this week. Please make NPO MN 10/05. May keep DOAC through the weekend but please hold starting 10/04 pm. Up-titrate rate control agents as needed in interim. This consult was discussed with Dr. Tovar, the attending physician. If you have any questions or need any further information, please feel free to contact the EP Consult Service. Thank you for allowing us to participate in the care of Elizabeth Persaud. Morenita Garza MD Fellow, Cardiac Electrophysiology REVIEW OF SYSTEMS Constitutional: Negative for fevers, chills or weight loss Skin: Negative for rash. HENT: Negative for congestion, sore throat and rhinorrhea. Eyes: Negative for blurred vision. Cardiovascular: +palpitations, HAAS Respiratory: Negative for cough, dyspnea. Gastrointestinal: Negative for nausea, abdominal pain, diarrhea, bleeding Genitourinary: Negative for dysuria, hematuria or urinary urgency Musculoskeletal: Negative for back pain or joint pain Neurological: Negative for dizziness, weakness. OBJECTIVE DATA Temp: [97.7 F (36.5 C)-98.2 F (36.8 C)] 97.7 F (36.5 C) Pulse (Heart Rate): [120-153] 131 Resp Rate: [16-21] 16 BP: (115-140)/(76-93) 140/82 O2 Sat (%): [93 %-96 %] 93 % Weight: [62.5 kg (137 lb 11.2 oz)] 62.5 kg (137 lb 11.2 oz) I/O last 3 completed shifts: In: 200 [P.O.:200] Out: 425 [Urine:425] Oxygen Therapy: Oxygen Therapy O2 Sat (%): 93 % O2 Device: room air Oxygen Delivery/Consumption Hemodynamics BSA (Calculated - sq m): 1.61 m2 Physical Exam: Gen: Alert, Awake, NAD Eyes: PERRLA, EOMI, no icterus ENT: MMM, trachea midline Resp: normal respiratory effort Cardio: irregular tachycardia GI: S/NT/ND, +BS Ext: WWP, no LE edema, no joint effusions Skin: No jaundice or rash Neuro: No gross deficits Psych: Alert, Ox3, appropriate affect and cognition Body mass index is 26.02 kg/m . PAST MEDICAL, SURGICAL, FAMILY, and SOCIAL HISTORY Past Medical History: Diagnosis Date Arrhythmia Essential hypertension, benign TIA (transient ischemic attack) No past surgical history on file. No family history on file. Social History Socioeconomic History Marital status: Single Tobacco Use Smoking status: Former Types: Cigarettes Start date: 2008 Vaping Use Vaping status: Never Used Substance and Sexual Activity Alcohol use: Not Currently Drug use: Never Social Drivers of Health Financial Resource Strain: Low Risk (06/22/2024) Received from [facility] Overall Financial Resource Strain (CARDIA) Difficulty of Paying Living Expenses: Not hard at all Food Insecurity: No Food Insecurity (06/22/2024) Received from [facility] Hunger Vital Sign Worried About Running Out of Food in the Last Year: Never true Ran Out of Food in the Last Year: Never true Transportation Needs: No Transportation Needs (06/22/2024) Received from [facility] PRAPARE - Transportation Lack of Transportation (Medical): No Lack of Transportation (Non-Medical): No Physical Activity: Sufficiently Active (06/22/2024) Received from [facility] Exercise Vital Sign Days of Exercise per Week: 4 days Minutes of Exercise per Session: 60 min Stress: No Stress Concern Present (06/22/2024) Received from [facility] [place] [employer] - Occupational Stress Questionnaire Feeling of Stress : Not at all Social Connections: Socially Isolated (06/22/2024) Received from [facility] Social Connection and Isolation Panel [NHANES] Frequency of Communication with Friends and Family: More than three times a week Frequency of Social Gatherings with Friends and Family: Twice a week Attends Jehovah'S Witness Services: Never Active Member of Clubs or Organizations: No Attends Club or Organization Meetings: Never Marital Status: Personal Safety: Not At Risk (04/13/2024) Humiliation, Afraid, Rape, and Kick questionnaire Fear of Current or Ex-Partner: No Emotionally Abused: No Physically Abused: No Sexually Abused: No Housing Stability: Low Risk (04/13/2024) Housing Stability Vital Sign Unable to Pay for Housing in the Last Year: No Number of Times Moved in the Last Year: 0 Homeless in the Last Year: No MEDICATIONS SCHEDULED: apixaban (ELIQUIS) tablet 5 mg, 5 mg, Q12H Ascorbic acid (VITAMIN C) tablet 1,000 mg, 1,000 mg, Daily ldtdoveegd-fuayitxbmzbjoi-uqzdvv mike (BREZTRI) 160-9-4.8 MCG/ACT inhaler 1 puff, 1 puff, Q12H cefTRIAXone (ROCEPHIN) 1 g in dextrose 50ml premix IVPB, 1 g, Q24H cholecalciferol (VITAMIN D3) tablet 5,000 Units, 5,000 Units, Daily cyanocobalamin (VITAMIN B12) tablet 100 mcg, 100 mcg, Daily [Held by provider] dapagliflozin (FARXIGA) tablet 10 mg, 10 mg, Daily Dofetilide (TIKOSYN) capsule 125 mcg, 125 mcg, Q12HNS ferrous sulfate tablet 324 mg, 324 mg, Daily Fexofenadine (ZINA) tablet 180 mg, 180 mg, Daily fluticasone (FLONASE) 50 MCG/ACT nasal spray 2 spray, 2 spray, Daily [Held by provider] furOSEmide (LASIX) tablet 60 mg, 60 mg, Daily Gabapentin (NEURONTIN) capsule 100 mg, 100 mg, TID Melatonin tablet 6 mg, 6 mg, QHS Metoprolol succinate (TOPROL-XL) tablet XL 50 mg, 50 mg, Q12H Multi-Vitamins tablet 1 tablet, 1 tablet, Daily Pantoprazole (PROTONIX) tablet DR 40 mg, 40 mg, Daily [Held by provider] Spironolactone (ALDACTONE) tablet 25 mg, 25 mg, Daily FLUIDS/DRIPS: PRNs: Acetaminophen, 975 mg, Q6H PRN calcium carbonate antacid, 2 tablet, 4x daily PRN guaiFENesin, 400 mg, Q6H PRN Melatonin, 6 mg, QHS PRN metoprolol, 5 mg, Q6H PRN Polyethylene glycol, 17 g, Daily PRN Senna, 8.6 mg, Daily PRN Sodium chloride 0.9%, 250 mL, PRN ALLERGIES: She is allergic to diltiazem, *adhesive tape, aspirin, codeine, etodolac, hydrocodone-acetaminophen, meloxicam, naproxen, phenylalanine, ranitidine, and trazodone. LABS CBC WBC/Hgb/Hct/Plts: 10.70/13.8/43.2/304 (10/01 2144) Chem 7 Bun/Creat/Cl/CO2/Glucose: 34/0.89/103/24/99 (10/01 2144) Na/K+/Phos/Mg/Ca: 140/4.8/4.1/2.2/9.5 (10/01 2144) estimated creatinine clearance is 45 mL/min (by C-G formula based on SCr of 0.89 mg/dL). Troponin/BNP No results found for: CPK, TROP No results found for: BNP Thyroid Lab Results Component Value Date TSH 4.349 04/13/2024 ECG/IMAGING/Procedures ECG- afib with Telemetry- afib with RVR, 110s-130s TTE 04/2024 Interpretation Summary Normal left ventricular size with mild global LV dysfunction. EF difficult to quantify due to variable R-R intervals (in atrial fibrillation). EF visually estimated at 45%. Normal right ventricular size with mild to moderate RV dysfunction. Biatrial enlargement. There is mild aortic, mitral, and tricuspid regurgitation. Cosigned by VICKIE Hansen at 10/02/2024 5:10 PM EDT Associated attestation - Hai Tovar MBBS - 10/02/2024 5:10 PM EDT Attending Physician Note I have personally interviewed and examined this patient with the Resident/ Fellow/ Nurse Practitioner on 10/02/2024 I have reviewed the history and examination and edited these in the note above. I agree with the medical decision and components of the note as edited by me. Pt with hx of persistent afib, s/p left atrial fibrillation Intolerant to amio Recurrent afib despite Tikosyn and multiple cardioversion Currently AFIB with RVR - EF 45 % D/w AVN and conduction system pacer early next week - pt agreeable Will d/w primary EP Dr Hernandez for input Hai Tovar M.D., [facility] Dietetics Professor of Internal Medicine [facility] [phone] Cell [facility] Work Phone: 10-02-2024 Consult note Associated Order (s): IP CONSULT TO CARDIOLOGY - EP EP CONSULT INITIAL EVALUATION IDENTIFYING DATA PATIENT: Elizabeth Persaud ADMIT DATE: 10/01/2024 TIME OF EVALUATION: 10/02/2024 7:24 AM HOSPITAL STAY: LOS: 1 day CONSULTING SERVICE: [facility]HA REASON FOR CONSULTATION: afib HISTORY OF PRESENT ILLNESS Elizabeth Persaud is a 79 y.o. female with a past medical history of persistent AF/atypical AFL s/p ablation (2015), repeat ablation in 04/2024 and multiple DCCVs, HFpEF/NICM (EF 60%), TIA (07/2022), COPD, and former nicotine dependence. She has had afib for a decade and trialed flecainide which did not control, amiodarone stopped due to side effects, and most recently on tikosyn. She last had ablation in April but has had difficult to control afib since then requiring multiple DCCV in past few months. Last was on 09/[address] Ibarra, but she went back into afib 5 hours later. She now presents with RVR and feeling poorly. Her last echo showed EF 45% but was in setting of rapid afib. She has been continuously anticoagulated. She reports severe shortness of breath with amiodarone when tried it in the past. ASSESSMENT AND PLAN Elizabeth Persaud is a 79 y.o. female who has the following active issues that are listed below: PerAF and atypical flutter s/p multiple ablations, DCCV, and drug trials HFpEF TIA May stop tikosyn given lack of efficacy. We discussed options for management including repeat ablation attempt or AVN ablation and PPM implant this admission and she prefers second option. Will plan for procedure this week. Please make NPO MN 10/05. May keep DOAC through the weekend but please hold starting 10/04 pm. Up-titrate rate control agents as needed in interim. This consult was discussed with Dr. Tovar, the attending physician. If you have any questions or need any further information, please feel free to contact the EP Consult Service. Thank you for allowing us to participate in the care of Elizabeth Persaud. Morenita Garza MD Fellow, Cardiac Electrophysiology REVIEW OF SYSTEMS Constitutional: Negative for fevers, chills or weight loss Skin: Negative for rash. HENT: Negative for congestion, sore throat and rhinorrhea. Eyes: Negative for blurred vision. Cardiovascular: +palpitations, HAAS Respiratory: Negative for cough, dyspnea. Gastrointestinal: Negative for nausea, abdominal pain, diarrhea, bleeding Genitourinary: Negative for dysuria, hematuria or urinary urgency Musculoskeletal: Negative for back pain or joint pain Neurological: Negative for dizziness, weakness. OBJECTIVE DATA Temp: [97.7 F (36.5 C)-98.2 F (36.8 C)] 97.7 F (36.5 C) Pulse (Heart Rate): [120-153] 131 Resp Rate: [16-21] 16 BP: (115-140)/(76-93) 140/82 O2 Sat (%): [93 %-96 %] 93 % Weight: [62.5 kg (137 lb 11.2 oz)] 62.5 kg (137 lb 11.2 oz) I/O last 3 completed shifts: In: 200 [P.O.:200] Out: 425 [Urine:425] Oxygen Therapy: Oxygen Therapy O2 Sat (%): 93 % O2 Device: room air Oxygen Delivery/Consumption Hemodynamics BSA (Calculated - sq m): 1.61 m2 Physical Exam: Gen: Alert, Awake, NAD Eyes: PERRLA, EOMI, no icterus ENT: MMM, trachea midline Resp: normal respiratory effort Cardio: irregular tachycardia GI: S/NT/ND, +BS Ext: WWP, no LE edema, no joint effusions Skin: No jaundice or rash Neuro: No gross deficits Psych: Alert, Ox3, appropriate affect and cognition Body mass index is 26.02 kg/m . PAST MEDICAL, SURGICAL, FAMILY, and SOCIAL HISTORY Past Medical History: Diagnosis Date Arrhythmia Essential hypertension, benign TIA (transient ischemic attack) No past surgical history on file. No family history on file. Social History Socioeconomic History Marital status: Single Tobacco Use Smoking status: Former Types: Cigarettes Start date: 2008 Vaping Use Vaping status: Never Used Substance and Sexual Activity Alcohol use: Not Currently Drug use: Never Social Drivers of Health Financial Resource Strain: Low Risk (06/22/2024) Received from [facility] Overall Financial Resource Strain (CARDIA) Difficulty of Paying Living Expenses: Not hard at all Food Insecurity: No Food Insecurity (06/22/2024) Received from [facility] Hunger Vital Sign Worried About Running Out of Food in the Last Year: Never true Ran Out of Food in the Last Year: Never true Transportation Needs: No Transportation Needs (06/22/2024) Received from [facility] PRAPARE - Transportation Lack of Transportation (Medical): No Lack of Transportation (Non-Medical): No Physical Activity: Sufficiently Active (06/22/2024) Received from [facility] Exercise Vital Sign Days of Exercise per Week: 4 days Minutes of Exercise per Session: 60 min Stress: No Stress Concern Present (06/22/2024) Received from [facility] [place] [employer] - Occupational Stress Questionnaire Feeling of Stress : Not at all Social Connections: Socially Isolated (06/22/2024) Received from [facility] Social Connection and Isolation Panel [NHANES] Frequency of Communication with Friends and Family: More than three times a week Frequency of Social Gatherings with Friends and Family: Twice a week Attends Jehovah'S Witness Services: Never Active Member of Clubs or Organizations: No Attends Club or Organization Meetings: Never Marital Status: Personal Safety: Not At Risk (04/13/2024) Humiliation, Afraid, Rape, and Kick questionnaire Fear of Current or Ex-Partner: No Emotionally Abused: No Physically Abused: No Sexually Abused: No Housing Stability: Low Risk (04/13/2024) Housing Stability Vital Sign Unable to Pay for Housing in the Last Year: No Number of Times Moved in the Last Year: 0 Homeless in the Last Year: No MEDICATIONS SCHEDULED: apixaban (ELIQUIS) tablet 5 mg, 5 mg, Q12H Ascorbic acid (VITAMIN C) tablet 1,000 mg, 1,000 mg, Daily afmrkcrfbz-ffguyhmuxzlgaj-jxoszs mike (BREZTRI) 160-9-4.8 MCG/ACT inhaler 1 puff, 1 puff, Q12H cefTRIAXone (ROCEPHIN) 1 g in dextrose 50ml premix IVPB, 1 g, Q24H cholecalciferol (VITAMIN D3) tablet 5,000 Units, 5,000 Units, Daily cyanocobalamin (VITAMIN B12) tablet 100 mcg, 100 mcg, Daily [Held by provider] dapagliflozin (FARXIGA) tablet 10 mg, 10 mg, Daily Dofetilide (TIKOSYN) capsule 125 mcg, 125 mcg, Q12HNS ferrous sulfate tablet 324 mg, 324 mg, Daily Fexofenadine (ZINA) tablet 180 mg, 180 mg, Daily fluticasone (FLONASE) 50 MCG/ACT nasal spray 2 spray, 2 spray, Daily [Held by provider] furOSEmide (LASIX) tablet 60 mg, 60 mg, Daily Gabapentin (NEURONTIN) capsule 100 mg, 100 mg, TID Melatonin tablet 6 mg, 6 mg, QHS Metoprolol succinate (TOPROL-XL) tablet XL 50 mg, 50 mg, Q12H Multi-Vitamins tablet 1 tablet, 1 tablet, Daily Pantoprazole (PROTONIX) tablet DR 40 mg, 40 mg, Daily [Held by provider] Spironolactone (ALDACTONE) tablet 25 mg, 25 mg, Daily FLUIDS/DRIPS: PRNs: Acetaminophen, 975 mg, Q6H PRN calcium carbonate antacid, 2 tablet, 4x daily PRN guaiFENesin, 400 mg, Q6H PRN Melatonin, 6 mg, QHS PRN metoprolol, 5 mg, Q6H PRN Polyethylene glycol, 17 g, Daily PRN Senna, 8.6 mg, Daily PRN Sodium chloride 0.9%, 250 mL, PRN ALLERGIES: She is allergic to diltiazem, *adhesive tape, aspirin, codeine, etodolac, hydrocodone-acetaminophen, meloxicam, naproxen, phenylalanine, ranitidine, and trazodone. LABS CBC WBC/Hgb/Hct/Plts: 10.70/13.8/43.2/304 (10/01 2144) Chem 7 Bun/Creat/Cl/CO2/Glucose: 34/0.89/103/24/99 (10/01 2144) Na/K+/Phos/Mg/Ca: 140/4.8/4.1/2.2/9.5 (10/01 2144) estimated creatinine clearance is 45 mL/min (by C-G formula based on SCr of 0.89 mg/dL). Troponin/BNP No results found for: CPK, TROP No results found for: BNP Thyroid Lab Results Component Value Date TSH 4.349 04/13/2024 ECG/IMAGING/Procedures ECG- afib with Telemetry- afib with RVR, 110s-130s TTE 04/2024 Interpretation Summary Normal left ventricular size with mild global LV dysfunction. EF difficult to quantify due to variable R-R intervals (in atrial fibrillation). EF visually estimated at 45%. Normal right ventricular size with mild to moderate RV dysfunction. Biatrial enlargement. There is mild aortic, mitral, and tricuspid regurgitation. Cosigned by VICKIE Hansen at 10/02/2024 5:10 PM EDT Associated attestation - Hai Tovar MBBS - 10/02/2024 5:10 PM EDT Attending Physician Note I have personally interviewed and examined this patient with the Resident/ Fellow/ Nurse Practitioner on 10/02/2024 I have reviewed the history and examination and edited these in the note above. I agree with the medical decision and components of the note as edited by me. Pt with hx of persistent afib, s/p left atrial fibrillation Intolerant to amio Recurrent afib despite Tikosyn and multiple cardioversion Currently AFIB with RVR - EF 45 % D/w AVN and conduction system pacer early next week - pt agreeable Will d/w primary EP Dr Hernandez for input Hai Tovar M.D., [facility] Dietetics Professor of Internal Medicine [facility] [phone] Cell documented in this encounter [facility] 10-01-2024 History and physical note Hospital Medicine Admission History & Physical Patient: Elizabeth Persaud, : 1945, Date of face to face patient encounter: 10/01/2024 Impression / Plan MS. Elizabeth Persaud is a 79 year-old female with a PMH of Persistent A Fib, Atrial Flutter, Chronic HFmrEF, HTN, HLD, TIA, COPD, and GERD who is admitted for uncontrolled A Fib with RVR. Persistent A Fib with RVR - Patient has had multiple ablations and DCCV in the past, most recently had DCCV in [place] on 09/30/24, returned to RVR after 5 hours - EKG on admission reveals A Fib with RVR with VR 141 - Trial IV Metop 5 mg x 3 doses to control HR below 120; will avoid CCB given her mildly reduced EF - Continue Home Toprol XL 50 mg q12h and Tikosyn 125 mg q12h - Continue Apixaban 5 mg BID for stroke risk reduction with [id number] Score: 7 (for CHF, HTN, age, TIA and gender). - EP consulted, appreciate recs - NPO after midnight Chronic HmrEF Hypertension Last TTE 04/14/24: EF 40-45%, normal RV size with mild to moderate RV dysfunction. - Not in acute exacerbation - Compliant with Home diuretics Lasix 60 mg Daily, held while NPO - Spironolactone 25 mg Daily, Jardiance 10 mg Daily also held while NPO - Continue Beta karson as above COPD - Breztri substitute for home trilogy Ellipta GERD - PPI Daily Vitamin-D deficiency - continue daily supplement Allergic Rhinitis - Flonase Daily and Zina daily Nonspecific Urinary symptoms - Reports her urine being warmer than usual for past 2 weeks, no prior history of UTI - Afebrile and no leukocytosis - Check UA and Culture Complexity. Wound Documentation Any conditions listed below are present on admission unless otherwise specified. . DVT prophylaxis with Eliquis (A Fib) Anticipated Disposition: Inpatient admission for above, home at discharge Code status is Full Code Chief Complaint A Fib with RVR History of Presenting Illness Elizabeth Persaud is a 79 y.o. female with a past medical history of Persistent A Fib, Atrial Flutter, Chronic HFmrEF, HTN, HLD, TIA, COPD, and GERD who was directly admitted per request of EP team due to AFib with RVR. Patient has not event monitor on has been often and AFib with RVR, she was seen locally in [place] on 09/30/2024 status post cardioversion, which she reports only lasted about 5 hours, and she was back in AFib with RVR. Patient has been eating, who returned with EP team as an outpatient, and they recommended patient presents to the hospital for direct admission for rate versus rhythm control. She reports right shoulder pain, which she thinks occurs more frequently when she is in AFib RVR. She also has intermittent lightheadedness, but she reports is also contributed to by for orthostatic lightheadedness/dizziness. She does sometimes get shortness of breath when she is in RVR, she currently denies any shortness of breath at rest. She denies any chest pain. She is noncompliant with all her medications, including her Tikosyn, Toprol-XL, Eliquis. Upon presentation to the hospital, her blood pressure was within good range that her heart rate was sustaining above 140, A Fib with RVR on EKG and tele monitor. Her labs were without any acute findings needing intervention. Of note, she also reports she has had feelings of her urine being warmer than usual for the past 2 weeks, it is almost a burning sensation but not quite; she also has nonspecific pain around left flank for about 1.5 weeks, she denies any fevers, although she had some chills about a day ago. She reports previously having a kidney stone years ago, but did does not quite feel like that. Review of Systems Constitutional: No fevers or weight changes Eyes: No vision changes ENT: No ringing, loss of hearing Cardiovascular: No LE edema, leg pain with walking, PND, Orthopnea Respiratory: No cough, SOB Gastrointestinal: No abd pain, constipation, diarrhea Genitourinary: No overt dysuria, gross hematuria Integumentary: No rash Musculoskeletal: Positive for right shoulder pain Psychiatric: No depressed mood, agitation, or loan History Past Medical History: Diagnosis Date Arrhythmia Essential hypertension, benign TIA (transient ischemic attack) No past surgical history on file. Social History she reports that she has quit smoking. Her smoking use included cigarettes. She started smoking about 16 years ago. She does not have any smokeless tobacco history on file. She reports that she does not currently use alcohol. She reports that she does not use drugs. Family History family history is not on file. Medications / Allergies Prior to Admission Medications Prescriptions Ascorbic Acid (Vitamin C) 1000 MG tablet Sig: Take 1 tablet by mouth daily. Bacillus Coagulans-Inulin (PROBIOTIC-PREBIOTIC PO) Sig: Take 1 capsule by mouth daily. CALCIUM MAGNESIUM ZINC PO Sig: Take 1 tablet by mouth daily. Cholecalciferol (VITAMIN D-3 PO) Sig: Take 1 tablet by mouth daily. Cyanocobalamin (VITAMIN B-12 PO) Sig: Take 1 tablet by mouth daily. Dofetilide 125 MCG capsule Sig: Take 1 capsule by mouth every 12 hours. If 3 doses are missed, contact the prescribing title curator as soon as possible. Empagliflozin (Jardiance) 10 MG tablet Sig: Take 1 tablet by mouth daily. Ferrous Sulfate (IRON PO) Sig: Take 1 tablet by mouth daily. Fexofenadine HCl (ZINA ALLERGY PO) Sig: Take 180 mg by mouth daily. Gabapentin 100 MG capsule Sig: Take 1 capsule by mouth 3 times daily. Ipratropium 17 MCG/ACT Aero Soln inhaler Sig: Inhale 2 puffs every 6 hours. max 12 inhalations/day Melatonin Gummies 5 MG Chew Tab Sig: Chew 2 tablets at bedtime. Metoprolol succinate 50 MG tablet XL Sig: Take 1.5 tablets by mouth daily. Patient taking differently: Take 1 tablet by mouth 2 times daily. Multiple Vitamin (MULTI-DAY PO) Sig: Take 1 tablet by mouth daily. Spironolactone 25 MG tablet Sig: Take 1 tablet by mouth daily. apixaban 5 MG tablet Sig: Take 1 tablet by mouth every 12 hours. fluticasone 50 MCG/ACT Suspension nasal spray Si sprays by Nasal route daily. dgorrautpyd-aoumxhsis-Ghqdyd (Trelegy Ellipta) 100-62.5-25 MCG/ACT Aerosol Powder, breath activated inhaler Sig: Inhale 1 puff daily. furOSEmide 20 MG tablet Sig: Take 3 tablets by mouth daily. omeprazole [address] capsule Sig: Take 1 capsule by mouth daily. Facility-Administered Medications: None Allergies Allergen Reactions Diltiazem Anaphylaxis *Adhesive Tape Rash Aspirin Dizzy/Vertigo Codeine Etodolac Hydrocodone-Acetaminophen Nausea and Vomiting Meloxicam Naproxen Swelling Patient reports head swelled up Phenylalanine Ranitidine Trazodone Objective Findings Ht 1.549 m (5' 1) Wt 62.5 kg (137 lb 11.2 oz) Comment: Standing weight BMI 26.02 kg/m Smoking Status Former Physical Exam Gen: Alert, Awake, NAD Eyes: PERRLA, EOMI, no icterus ENT: MMM, trachea midline Resp: CTA, normal respiratory effort Cardio: Irregularly irregular rate and rhythm. No overt PATI. 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 Psych: Ox3, appropriate affect and cognition Data Review WBC/Hgb/Hct/Plts: 10.70/13.8/43.2/304 (10/01 2144) Na/K+/Phos/Mg/Ca: 140/4.8/4.1/2.2/9.5 (10/01 2144) Bun/Creat/Cl/CO2/Glucose: 34/0.89/103/24/99 (10/01 2144) Ptt/Pt/Inr: 27.5/13.9/1.1 (10/01 2144) EKG: I have personally reviewed the EKG displaying A Fib with RVR ith VR 141 [facility] 10-01-2024 History and physical note Hospital Medicine Admission History & Physical Patient: Elizabeth Persaud, : 1945, Date of face to face patient encounter: 10/01/2024 Impression / Plan MS. Elizabeth Persaud is a 79 year-old female with a PMH of Persistent A Fib, Atrial Flutter, Chronic HFmrEF, HTN, HLD, TIA, COPD, and GERD who is admitted for uncontrolled A Fib with RVR. Persistent A Fib with RVR - Patient has had multiple ablations and DCCV in the past, most recently had DCCV in [place] on 09/30/24, returned to RVR after 5 hours - EKG on admission reveals A Fib with RVR with VR 141 - Trial IV Metop 5 mg x 3 doses to control HR below 120; will avoid CCB given her mildly reduced EF - Continue Home Toprol XL 50 mg q12h and Tikosyn 125 mg q12h - Continue Apixaban 5 mg BID for stroke risk reduction with [id number] Score: 7 (for CHF, HTN, age, TIA and gender). - EP consulted, appreciate recs - NPO after midnight Chronic HmrEF Hypertension Last TTE 04/14/24: EF 40-45%, normal RV size with mild to moderate RV dysfunction. - Not in acute exacerbation - Compliant with Home diuretics Lasix 60 mg Daily, held while NPO - Spironolactone 25 mg Daily, Jardiance 10 mg Daily also held while NPO - Continue Beta karson as above COPD - Breztri substitute for home trilogy Ellipta GERD - PPI Daily Vitamin-D deficiency - continue daily supplement Allergic Rhinitis - Flonase Daily and Zina daily Nonspecific Urinary symptoms - Reports her urine being warmer than usual for past 2 weeks, no prior history of UTI - Afebrile and no leukocytosis - Check UA and Culture Complexity. Wound Documentation Any conditions listed below are present on admission unless otherwise specified. . DVT prophylaxis with Eliquis (A Fib) Anticipated Disposition: Inpatient admission for above, home at discharge Code status is Full Code Chief Complaint A Fib with RVR History of Presenting Illness Elizabeth Persaud is a 79 y.o. female with a past medical history of Persistent A Fib, Atrial Flutter, Chronic HFmrEF, HTN, HLD, TIA, COPD, and GERD who was directly admitted per request of EP team due to AFib with RVR. Patient has not event monitor on has been often and AFib with RVR, she was seen locally in [place] on 09/30/2024 status post cardioversion, which she reports only lasted about 5 hours, and she was back in AFib with RVR. Patient has been eating, who returned with EP team as an outpatient, and they recommended patient presents to the hospital for direct admission for rate versus rhythm control. She reports right shoulder pain, which she thinks occurs more frequently when she is in AFib RVR. She also has intermittent lightheadedness, but she reports is also contributed to by for orthostatic lightheadedness/dizziness. She does sometimes get shortness of breath when she is in RVR, she currently denies any shortness of breath at rest. She denies any chest pain. She is noncompliant with all her medications, including her Tikosyn, Toprol-XL, Eliquis. Upon presentation to the hospital, her blood pressure was within good range that her heart rate was sustaining above 140, A Fib with RVR on EKG and tele monitor. Her labs were without any acute findings needing intervention. Of note, she also reports she has had feelings of her urine being warmer than usual for the past 2 weeks, it is almost a burning sensation but not quite; she also has nonspecific pain around left flank for about 1.5 weeks, she denies any fevers, although she had some chills about a day ago. She reports previously having a kidney stone years ago, but did does not quite feel like that. Review of Systems Constitutional: No fevers or weight changes Eyes: No vision changes ENT: No ringing, loss of hearing Cardiovascular: No LE edema, leg pain with walking, PND, Orthopnea Respiratory: No cough, SOB Gastrointestinal: No abd pain, constipation, diarrhea Genitourinary: No overt dysuria, gross hematuria Integumentary: No rash Musculoskeletal: Positive for right shoulder pain Psychiatric: No depressed mood, agitation, or loan History Past Medical History: Diagnosis Date Arrhythmia Essential hypertension, benign TIA (transient ischemic attack) No past surgical history on file. Social History she reports that she has quit smoking. Her smoking use included cigarettes. She started smoking about 16 years ago. She does not have any smokeless tobacco history on file. She reports that she does not currently use alcohol. She reports that she does not use drugs. Family History family history is not on file. Medications / Allergies Prior to Admission Medications Prescriptions Ascorbic Acid (Vitamin C) 1000 MG tablet Sig: Take 1 tablet by mouth daily. Bacillus Coagulans-Inulin (PROBIOTIC-PREBIOTIC PO) Sig: Take 1 capsule by mouth daily. CALCIUM MAGNESIUM ZINC PO Sig: Take 1 tablet by mouth daily. Cholecalciferol (VITAMIN D-3 PO) Sig: Take 1 tablet by mouth daily. Cyanocobalamin (VITAMIN B-12 PO) Sig: Take 1 tablet by mouth daily. Dofetilide 125 MCG capsule Sig: Take 1 capsule by mouth every 12 hours. If 3 doses are missed, contact the prescribing title curator as soon as possible. Empagliflozin (Jardiance) 10 MG tablet Sig: Take 1 tablet by mouth daily. Ferrous Sulfate (IRON PO) Sig: Take 1 tablet by mouth daily. Fexofenadine HCl (ZINA ALLERGY PO) Sig: Take 180 mg by mouth daily. Gabapentin 100 MG capsule Sig: Take 1 capsule by mouth 3 times daily. Ipratropium 17 MCG/ACT Aero Soln inhaler Sig: Inhale 2 puffs every 6 hours. max 12 inhalations/day Melatonin Gummies 5 MG Chew Tab Sig: Chew 2 tablets at bedtime. Metoprolol succinate 50 MG tablet XL Sig: Take 1.5 tablets by mouth daily. Patient taking differently: Take 1 tablet by mouth 2 times daily. Multiple Vitamin (MULTI-DAY PO) Sig: Take 1 tablet by mouth daily. Spironolactone 25 MG tablet Sig: Take 1 tablet by mouth daily. apixaban 5 MG tablet Sig: Take 1 tablet by mouth every 12 hours. fluticasone 50 MCG/ACT Suspension nasal spray Si sprays by Nasal route daily. uowxsqnpebh-ryrjzxwrm-Fnzwor (Trelegy Ellipta) 100-62.5-25 MCG/ACT Aerosol Powder, breath activated inhaler Sig: Inhale 1 puff daily. furOSEmide 20 MG tablet Sig: Take 3 tablets by mouth daily. omeprazole [address] capsule Sig: Take 1 capsule by mouth daily. Facility-Administered Medications: None Allergies Allergen Reactions Diltiazem Anaphylaxis *Adhesive Tape Rash Aspirin Dizzy/Vertigo Codeine Etodolac Hydrocodone-Acetaminophen Nausea and Vomiting Meloxicam Naproxen Swelling Patient reports head swelled up Phenylalanine Ranitidine Trazodone Objective Findings Ht 1.549 m (5' 1) Wt 62.5 kg (137 lb 11.2 oz) Comment: Standing weight BMI 26.02 kg/m Smoking Status Former Physical Exam Gen: Alert, Awake, NAD Eyes: PERRLA, EOMI, no icterus ENT: MMM, trachea midline Resp: CTA, normal respiratory effort Cardio: Irregularly irregular rate and rhythm. No overt PATI. 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 Psych: Ox3, appropriate affect and cognition Data Review WBC/Hgb/Hct/Plts: 10.70/13.8/43.2/304 (10/01 2144) Na/K+/Phos/Mg/Ca: 140/4.8/4.1/2.2/9.5 (10/01 2144) Bun/Creat/Cl/CO2/Glucose: 34/0.89/103/24/99 (10/01 2144) Ptt/Pt/Inr: 27.5/13.9/1.1 (10/01 2144) EKG: I have personally reviewed the EKG displaying A Fib with RVR ith VR 141 documented in this encounter [facility] 09-30-2024 Note [facility] Medical Records Department [address] [place] [address] History Physical Exam 09/30/24 0807 MR#: [id number] Acct: [id number] Name: ELIZABETH PERSAUD Rep #: [id number] : 1945 79 From: Maxim Ibarra MD PCP: Dr. Minerva Shaver MD Status:[facility] Location: [facility] History and Physical Date of Admission: 09/30/24 ELIZABETH PERSAUD, is a 79 F with a history of atrial fibrillation for which she was hospitalized and underwent a ARIS guided cardioversion. Patient presented to her PCP in May 2022 with complaints of shortness of breath with minimal exertion and leg weakness. She states her heart rates have been in the 90s while working, and increases to 140 on her recumbent exercise bike. At some point her flecainide had gotten discontinued and she was placed on amiodarone for her atrial fibrillation. She states that she is allergic to amiodarone due to worsening dyspnea on exertion. This was discontinued at her last office visit, and she was placed back on flecainide. She had been scheduled for an outpatient cardioversion on 08/06/2022, but had successfully cardioverted on her own. Patient presented to the emergency room on 08/08/2022 with strokelike symptoms. Patient presented because of facial droop, altered sensation and left sided weakness. She had not missed any doses of her Eliquis. Her heart rate was noted to be low at 38. Her metoprolol and Flecainide were placed on hold at that time. Her heart rate did improve. Her CT of the head without contrast revealed no evidence of subdural, epidural, subarachnoid hemorrhage or intraparenchymal hemorrhage. There was no obvious stroke noted. Her MRI of the brain was also negative. 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 She was later discharged from the hospital and instructed to follow with neurology for suspected stroke due to symptomatology. She states she is scheduled to see vascular-Dr. Persaud at [facility] next week. She was seen in the Emergency Room on 12/31/2022 for shortness of breath. Per EMS report she was noted be 80% on room air and placed on CPAP therapy. She received IV Lasix. Her BNP, 394.7, was elevated and her troponin was normal. Her ECG showed sinus rhythm. She was admitted and treated for respiratory failure secondary to acute on chronic congestive heart failure and suspected pneumonia. She underwent an echocardiogram on 12/31/2022 that showed ejection fraction of 60% and moderately enlarged left atrium. She was evaluated with EP at [facility] with plans to undergo ablation and Tikosyn therapy. Her flecainide was discontinued. She presented [facility] emergency department for worsening shortness of breath despite diuretic adjustment. She was transferred to [facility] for further evaluation due to upcoming ablation procedure. She underwent cardioversion and started on Tikosyn therapy. She returned to atrial fibrillation the following day and underwent a second cardioversion. After her sixth dose of Tikosyn her Qtc was noted be 500. To assist with sinus bradycardia, her metoprolol is reduced to 25 mg p.o. daily. She return to [facility] on 04/22/2024 and she proceeded with a pulsed field energy ablation, pulmonary vein isolation ablation, and cavotricuspid isthmus ablation with pulsed field energy on 04/22/[address] [facility] [address] Hernandez. She developed atrial fibrillation once with rapid atrial pacing that required cardioversion. It was thus recommend that she stay on Tikosyn. Her CT pulmonary vein study showed coronary calcification and it was also recommended to aggressively treat secondary risk factors for coronary artery disease. She underwent pulsed field ablation and right atrium/TV???IVC isthmus ablation at [facility] on 04/22/2024. She did require cardioversion during procedure. She presented to the office yesterday with concerns over rapid heart rate. She noted that her heart rates were in the 130s. EKG demonstrated atrial fibrillation with a heart rate of 133. She is here today to undergo a cardioversion. [facility] Medical History (Updated 06/03/24 @ 00:01 by Background Daemon) Osteoarthritis of right hip Right hip pain Hamstring muscle strain Left hip pain Acute stroke due to ischemia Tubular adenoma of colon URI (upper respiratory infection) Chronic neck and back pain Difficulty balancing when standing Abnormal bruising Diarrhea Chest pain Heart disease Shoulder pain SOB (shortness of breath) Cancer History of DVT (deep vein thrombosis) Arthritis Panlobular emphysema Atrial fibrillation Hypertension Rotator cuff tear Tendonitis of shoulder, right Carpal tunnel syndrome Calculus of kidney Moses's esophagus Paroxysmal atrial fibrillation Chronic diastolic (congestive) heart failure 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 [facility] 09-15-2024 Procedure note [facility] 08-18-2024 Radiology Diagnostic study note [facility] Imaging Services [address] [place], [place] [id number] (259) L/S Spine Min 4 Views MR#: [id number] Acct: [id number] Name: ELIZABETH PERSAUD Celsa Rep #: [id number] : 1945 F 79 From: Isiah Fonseca MD PCP: Dr. Minerva Shaver MD Status: REG C Study:L/S Spine Min 4 Views Date of Exam: 08/17/24 Exam# [id number] Ordering Dr: Gianni Jaeger PROCEDURE: 08/17/2024 REASON FOR EXAM: PAIN TECHNIQUE: Standing AP view(s) of the thoracic and lumbar spine. COMPARISON: None. FINDINGS: Mild S shaped scoliosis is present. There is extensive DJD throughout the lumbosacral spine. There is disc space narrowing throughout. There is subchondral sclerosis at the endplates of the vertebral bodies. There is osteophytic spurring. Extensive facet arthropathy seen throughout. There is diffuse osteopenia present. Extensive atheromatous calcification seen within the aorta.? Surgical clips seen within the deep pelvis, partially visualized. Correlate clinically. RAD/L/S Spine Min 4 Views IMPRESSION: Extensive lumbosacral degenerative arthropathy Reading Location: [id number] CC: RENEE Bojorquez; Dr. Minerva Shaver MD ~ [employer] Certified Network Associate: Signed [facility] 08-18-2024 Radiology Diagnostic study note [facility] Imaging Services [address] [place] [id number] Cerv Spine 4 or 5 Views MR#: [id number] Acct: [id number] Name: ELIZABETH PERSAUD Rep #: [id number] : 1945 F 79 From: Saadia Matthew MD PCP: Dr. Minerva Shaver MD Status: [facility] Study:Cerv Spine 4 or 5 Views Date of Exam: 08/17/24 Exam# [id number] Ordering Dr: Gianni Jaeger PROCEDURE: CERV SPINE 4 OR 5 VIEWS 08/17/2024 REASON FOR EXAM: PAIN TECHNIQUE: 2 views of the cervical spine. COMPARISON: None available FINDINGS: Vertebrae: Vertebral body heights are well preserved. Postsurgical changes of aplate and screw fixation within the anterior C3-C5 level. disc spaces: Multilevel loss of intervertebral disc height along the C3-C4, and C4-C5 Alignment: Exaggerated lordosis of the cervical spine. No dynamic instability. soft tissues: No overlying soft tissue swelling. Other: None RAD/Cerv Spine 4 or 5 Views IMPRESSION: *No dynamic instability on flexion and extension views. *Postsurgical changes anterior approach spinal fusion C3-C5 level. Reading Location: [facility] CC: RENEE Bojorquez; Dr. Minerva Shaver MD ~ [employer] Certified Network Associate: Signed [facility] 08-11-2024 Note HNO ID: [id number] Author: ?, ?, ? Service: ? Author Type: ? Type: Progress Notes Filed: 08/11/2024 10:06 Note Text: POPULATION HEALTH NAVIGATION OUTREACH Action/FYI Patient outreach for HCC gaps; AWV due 04/05. Appointment notes updated. Mychart sent. Reason for Outreach Care Gap/HCC or Scheduling Wellness Visits Care Gaps due: Medicare Annual Wellness Visit Patient Contacted: Unable or unnecessary to reach patient: MyChart message sent HCC related Updated appointment notes Navigation Signature: Mine Gonzalez August 11, 2024 10:[address] [facility] 08-11-2024 History of Present illness Narrative POPULATION HEALTH NAVIGATION OUTREACH Action/FYI Patient outreach for HCC gaps; AWV due 04/05. Appointment notes updated. Mychart sent. Reason for Outreach Care Gap/HCC or Scheduling Wellness Visits Care Gaps due: Medicare Annual Wellness Visit Patient Contacted: Unable or unnecessary to reach patient: MyChart message sent HCC related Updated appointment notes Navigation Signature: Mine Gonzalez August 11, 2024 10:05 AM documented in this encounter [facility] 08-11-2024 Note HNO ID: [id number] Author: DIANNA BALLARD APRN.[employer] Service: ? Author Type: Nurse Practitioner Type: Progress Notes Filed: 08/11/2024 10:19 Note Text: CC: Patient presents with: Dizziness: Vertigo x 6 days HPI Elizabeth Persaud is a 79 year old female who presents today for vertigo for 6 days. A week prior to this was at [facility] for A-fib with RVR with symptoms of palpitations that were resolved with fluids and 3 doses of IV lopressor that she converted to SR. Has appointment with her title curator for ablation later today. Dizziness has been mild but still having to hold onto things because she doesn't want to fall. Has chronic vertigo and deals with this regularly. Has been out of her flonase and noticed her lymph nodes in her throat and around her ear are swollen with sinus drainage. Called ENT for an appointment but unable to get in for a few weeks. Using vicks eucalyptus in the shower which helped. Also picked up her flonase and restarted it last night. Using non drowsy dramamine also which also helps. Denies syncope, fever, chills, cough, wheezing, shortness of breath, further palpitations, chest pain, sore throat, fatigue, confusion, difficulty urination, dark urine, pain with urination, or abdominal pain. REVIEW OF SYSTEMS See HPI PAST MEDICAL HISTORY Diagnosis Date Anxiety Arthritis Atrial fibrillation (HCC) s/p ablation 07/2015 Backache, unspecified Moses's esophagus Basal cell carcinoma BPPV (benign paroxysmal positional vertigo) Cancer (HCC) Basal cell on forehead Carpal [...] TUBE ABDL/VAG APPR UNI/BI Tubal ligation NEUROPLASTY AND/TRANSPOS MEDIAN NRV CARPAL TUNNE 02/14/2012 Carpal tunnel [...] surgery with implants- Dr Jacob Aguilar at [facility] PAST SURGICAL HISTORY OF 07/27/2015 cryo ablation, cardiac PAST SURGICAL HISTORY OF cardiac ablation RPR UMBILICAL HRNA 5 YRS/> REDUCIBLE 07/17/2010 Hernia repair, umbilical >5yr [facility] Dr Manuel Hoover SHX COSMETIC SURGERY SKIN BIOPSY HX ALLERGIES Cardizem [Diltiazem Hcl], Codeine, Entex [Phenylephrine-Guaifenesin], Etodolac, Meloxicam, Naproxen, Tape [Adhesive Tape (Rosins)], Trazodone, and Zantac [Ranitidine Hcl] MEDICATIONS fluticasone (FLONASE) 50 mcg/actuation nasal spray Use 2 Sprays in each nostril once daily. Rinse mouth after use. benzonatate (TESSALON PERLE) 100 mg capsule Take 1 capsule by mouth three times a day as needed. dofetilide (TIKOSYN) 125 mcg capsule 125 mcg two times a day. wdtnmwkuhek-lxwzfjaiy-rarwnogj (TRELEGY ELLIPTA) 100-62.5-25 mcg inhalation powder Inhale 1 Puff as instructed once daily. sucralfate (CARAFATE) 100 mg/mL suspension Take 10 mL by mouth before meals and at bedtime. (560cc=2wks) nystatin (MYCOSTATIN) 100,000 unit/mL suspension Take 5 mL by mouth four times daily. 1tsp swish in mouth for several minutes, then swallow (or expectorate) 4 times daily until gone. diclofenac, EC, (VOLTAREN) 75 mg EC tablet Takes once daily PRN for acute pain/inflammation. Take with food. omeprazole (PRILOSEC) 40 mg capsule Take 1 capsule by mouth once daily. metoprolol succinate ER (TOPROL XL) 50 mg 24 hr tablet Take 1 tablet by mouth two times a day. JARDIANCE 10 mg tablet Take 10 mg by mouth once daily. Ipratropium (ATROVENT) 17 mcg/actuation inhaler Inhale 2 Puffs as instructed every 6 hours as needed for (more content not included)... [facility] 08-11-2024 History of Present illness Narrative CC: Patient presents with: Dizziness: Vertigo x 6 days HPI Elizabeth Persaud is a 79 year old female who presents today for vertigo for 6 days. A week prior to this was at [facility] for A-fib with RVR with symptoms of palpitations that were resolved with fluids and 3 doses of IV lopressor that she converted to SR. Has appointment with her title curator for ablation later today. Dizziness has been mild but still having to hold onto things because she doesn't want to fall. Has chronic vertigo and deals with this regularly. Has been out of her flonase and noticed her lymph nodes in her throat and around her ear are swollen with sinus drainage. Called ENT for an appointment but unable to get in for a few weeks. Using vicks eucalyptus in the shower which helped. Also picked up her flonase and restarted it last night.\ Using non drowsy dramamine also which also helps. Denies syncope, fever, chills, cough, wheezing, shortness of breath, further palpitations, chest pain, sore throat, fatigue, confusion, difficulty urination, dark urine, pain with urination, or abdominal pain. REVIEW OF SYSTEMS See HPI PAST MEDICAL HISTORY Diagnosis Date Anxiety Arthritis Atrial fibrillation (HCC) s/p ablation 07/2015 Backache, unspecified Moses's esophagus Basal cell carcinoma BPPV (benign paroxysmal positional vertigo) Cancer (HCC) Basal cell on forehead Carpal [...] surgery with implants- Dr Jacob Aguilar at [facility] PAST SURGICAL HISTORY OF 07/27/2015 cryo ablation, cardiac PAST SURGICAL HISTORY OF cardiac ablation RPR UMBILICAL HRNA 5 YRS/> REDUCIBLE 07/17/2010 Hernia repair, umbilical >5yr [facility] Dr Manuel Hoover SHX COSMETIC SURGERY SKIN BIOPSY HX ALLERGIES Cardizem [Diltiazem Hcl], Codeine, Entex [Phenylephrine-Guaifenesin], Etodolac, Meloxicam, Naproxen, Tape [Adhesive Tape (Rosins)], Trazodone, and Zantac [Ranitidine Hcl] MEDICATIONS fluticasone (FLONASE) 50 mcg/actuation nasal spray Use 2 Sprays in each nostril once daily. Rinse mouth after use. benzonatate (TESSALON PERLE) 100 mg capsule Take 1 capsule by mouth three times a day as needed. dofetilide (TIKOSYN) 125 mcg capsule 125 mcg two times a day. vrthjvgpdub-zbwdpayeu-tnlatjbc (TRELEGY ELLIPTA) 100-62.5-25 mcg inhalation powder Inhale 1 Puff as instructed once daily. sucralfate (CARAFATE) 100 mg/mL suspension Take 10 mL by mouth before meals and at bedtime. (560cc=2wks) nystatin (MYCOSTATIN) 100,000 unit/mL suspension Take 5 mL by mouth four times daily. 1tsp swish in mouth for several minutes, then swallow (or expectorate) 4 times daily until gone. diclofenac, EC, (VOLTAREN) 75 mg EC tablet Takes once daily PRN for acute pain/inflammation. Take with food. omeprazole (PRILOSEC) 40 mg capsule Take 1 capsule by mouth once daily. metoprolol succinate ER (TOPROL XL) 50 mg 24 hr tablet Take 1 tablet by mouth two times a day. JARDIANCE 10 mg tablet Take 10 mg by mouth once daily. Ipratropium (ATROVENT) 17 mcg/actuation inhaler Inhale 2 Puffs as instructed every 6 hours as needed for wheezing/shortness of breath. furosemide (LASIX) 40 mg tablet Take 1 tablet by mouth twice daily. apixaban (ELIQUIS) 5 mg tab(s) Take by mouth twice daily. Bifidobacterium infantis (ALIGN) 10.5 mg (10 million cell) chew Take 1 tablet by mouth once daily. potassium chloride ER (K-DUR, KLOR-CON) 20 mEq tablet Take 1 tablet by mouth twice daily. (Patient not taking: Reported on 04/02/2024) melatonin 3 mg ODT Take 1 tablet by mouth daily at bedtime. MULTIVITAMIN WITH MINERALS (ONE-A-DAY 50 PLUS ORAL) Take by mouth. CALCIUM CARBONATE/VITAMIN D3 (VITAMIN D-3 ORAL) Take 1,000 mg by mouth five times daily. [id number]-[id number] ORAL Take by mouth. FAMILY HISTORY Problem Relation Age of Onset Hypertension Mother Stroke Mother Coronary Artery Disease Father other (wilsons disease) Brother other (VINCE'S DISEASE) Brother Liver dse, cirrhosis Social History Tobacco Use Smoking status: Former Current packs/day: 0.00 Average packs/day: 2.0 packs/day for 35.0 years (70.0 ttl pk-yrs) Types: Cigarettes Start date: 11/09/1970 Quit date: 11/09/2005 Years since quittin.7 Smokeless tobacco: Never Tobacco comments: Stopped smoking 12/2005 Vaping Use Vaping status: Never Used Substance Use Topics Alcohol use: Not Currently Drug use: No PHYSICAL EXAM BP 138/78 Pulse 74 Resp 16 SpO2 96% General Appearance: well appearing, in no acute distress, alert Eyes: PERRLA, EOM's intact, conjunctiva pink and moist, no icterus, sclera white, non-injected Ears: external ears normal to inspection and palpation, canals clear, Left tympanic membrane normal. , Right tympanic membrane normal Nose/sinus: Nares normal. Septum midline. Mucosa normal. No drainage., No sinus tenderness Neck: Thyroid normal size and symmetric without palpable nodules, Neck supple tenderness to submandibular Oropharynx: tongue midline and normal, soft palate, uvula, and tonsils normal, palpation of salivary glands negative Lymph nodes: No cervical lymphadenopathy and No supraclavicular lymphadenopathy Lungs: Lungs clear to auscultation. No wheezing, rhonchi, rales. Heart: RRR without murmur, gallop, or rubs. No ectopy Neurological: Gait normal. Reflexes normal and symmetric. Sensation intact., speech normal, mental status intact, Romberg negative, muscle tone normal, muscle strength normal Health maintenance reviewed with patient: Depression Screening Never done Anxiety Screening Never done BP Controlled (<130/80) Never done Shingrix Vaccine(3 of 3) due on 11/14/2021 RSV Vaccine(1 - 1-dose 75+ series) Never done Covid-19 Vaccine( - 2023- season) due on 07/22/2025 Annual PCP Team Chronic Disease Visit due on 08/11/2025 Diabetes Screening due on 04/21/2027 DTaP,Tdap,Td Vaccine(2 - Td or Tdap) due on 09/04/2033 Bone Density Screening Completed Spirometry Completed Influenza Vaccine Completed Advance Directive Discussion Completed Hepatitis C Screening Completed Pneumococcal Vaccine: 50+ Completed Mammogram Screening Discontinued Colorectal Cancer Screening Discontinued DATA REVIEWED: Outside chart from [facility] reviewed. ASSESSMENT/PLAN: 1. Vertigo - ICD9: 780.4, ICD10: R42 (primary diagnosis) Mild at this time and no concerns on assessment Continue with flonase and current treatments. Do not drive if dizzy Continue with plans to see ENT Follow up if this continues Go to Er for worsening symptoms, confusion, numbness or other urgent concerns. 2. Paroxysmal atrial fibrillation (HCC) - ICD9: 427.31, ICD10: I48.0 Apical regular in office Continue with plans to see cardiology today 3. Sinus drainage - ICD9: 478.19, ICD10: J34.89 See #1 4. Neck pain - ICD9: 723.1, ICD10: M54.2 Chronic issue Has upcoming appointment with credentialing specialist next week in regards to this. Prescription instructions reviewed with patient as applicable. Potential red flag symptoms discussed with the patient. Reviewed appropriate action plan to take if red flag symptoms occur. Patient agreeable to treatment plan. Dianna Ballard APRN.CNP documented in this encounter [facility] 08-11-2024 Note Patient Outreach (RAYMOND TNGRAZYAN) ELIZABETH PERSAUD ([id number]) 1945 [facility] Date Time Provider Department 08/11/24 MINERVA SHAVER During your visit today, we recorded the following information about you: Mine Barba 08/11/2024 10:06 AM Signed POPULATION HEALTH NAVIGATION OUTREACH Action/FYI Patient outreach for HCC gaps; AWV due 04/05. Appointment notes updated. Mychart sent. Reason for Outreach Care Gap/HCC or Scheduling Wellness Visits Care Gaps due: Medicare Annual Wellness Visit Patient Contacted: Unable or unnecessary to reach patient: Profoundhart message sent HCC related Updated appointment notes Navigation Signature: Mine Gonzalez August 11, 2024 10:05 AM Allergies As of Date: 08/11/2024 Noted Allergy Reaction CARDIZEM (DILTIAZEM HCL) 01/18/2015 7 - Swelling CODEINE 01/21/2006 11 - Vomiting Comments: Ringing in Ears. ENTEX (PHENYLEPHRINE-GUAIFENESIN) 03/06/2007 2 - Rash ETODOLAC 07/06/2012 14 - Other: See Comments Comments: Heart palpitations MELOXICAM 05/25/2012 14 - Other: See Comments Comments: Heart palpitations NAPROXEN 01/29/2011 7 - Swelling Comments: Possible allergy? Pt relates to naproxen TAPE (ADHESIVE TAPE (ROSINS)) 03/31/2023 2 - Rash TRAZODONE 08/19/2014 14 - Other: See Comments Comments: rapid hear beat ZANTAC (RANITIDINE HCL) 05/29/2016 2 - Rash 7 - Swelling Date Reviewed: 08/11/2024 Reviewed by: Tamanna Cordova MA - Fully Assessed Reason for Visit: Population Health Navigation Outreach [[id number]] Cmt: America Guillermo Prescriptions as of 08/11/2024 - fluticasone (FLONASE) 50 mcg/actuation nasal spray Use 2 Sprays in each nostril once daily. Rinse mouth after use. - benzonatate (TESSALON PERLE) 100 mg capsule Take 1 capsule by mouth three times a day as needed. - dofetilide (TIKOSYN) 125 mcg capsule 125 mcg two times a day. - rubszidombk-kbcqurpeg-pyfljocr (TRELEGY ELLIPTA) 100-62.5-25 mcg inhalation powder Inhale 1 Puff as instructed once daily. - sucralfate (CARAFATE) 100 mg/mL suspension Take 10 mL by mouth before meals and at bedtime. (560cc=2wks) - nystatin (MYCOSTATIN) 100,000 unit/mL suspension Take 5 mL by mouth four times daily. 1tsp swish in mouth for several minutes, then swallow (or expectorate) 4 times daily until gone. - diclofenac, EC, (VOLTAREN) 75 mg EC tablet Takes once daily PRN for acute pain/inflammation. Take with food. - omeprazole (PRILOSEC) 40 mg capsule Take 1 capsule by mouth once daily. - metoprolol succinate ER (TOPROL XL) 50 mg 24 hr tablet Take 1 tablet by mouth two times a day. - JARDIANCE 10 mg tablet Take 10 mg by mouth once daily. - Ipratropium (ATROVENT) 17 mcg/actuation inhaler Inhale 2 Puffs as instructed every 6 hours as needed for wheezing/shortness of breath. - furosemide (LASIX) 40 mg tablet Take 1 tablet by mouth twice daily. - apixaban (ELIQUIS) 5 mg tab(s) Take by mouth twice daily. - Bifidobacterium infantis (ALIGN) 10.5 mg (10 million cell) chew Take 1 tablet by mouth once daily. - potassium chloride ER (K-DUR, KLOR-CON) 20 mEq tablet Take 1 tablet by mouth twice daily. - melatonin 3 mg ODT Take 1 tablet by mouth daily at bedtime. - MULTIVITAMIN WITH MINERALS (ONE-A-DAY 50 PLUS ORAL) Take by mouth. - CALCIUM CARBONATE/VITAMIN D3 (VITAMIN D-3 ORAL) Take 1,000 mg by mouth five times daily. - RNNZJOD-LXYXUNXPT-NGQG ORAL Take by mouth. Problem List As Of Date 08/11/2024 Noted Resolved PERSISTENT INSOMNIA [G47.00] 07/16/2006 Moses's esophagus [K22.70] 07/16/2006 CALCULUS OF KIDNEY [N20.0] 07/16/2006 Irritable bowel syndrome [K58.9] 07/16/2006 01/10/2016 Tobacco use disorder [F17.200] 07/16/2006 01/10/2016 Pain in joint, shoulder region [M25.519] 06/22/2008 09/25/2015 ANXIETY GENERALIZED [F41.1] 08/31/2008 01/10/2016 Umbilical hernia without mention of obstruction*07/25/2010 09/25/2015 Carpal tunnel syndrome, left [G56.02] 01/30/2012 Carpal tunnel syndrome, right [G56.01] 01/30/2012 01/10/2016 Right shoulder strain [S46.911A] 03/24/2012 09/25/2015 Tendonitis of shoulder, right [M77.8] 05/25/2012 Rotator cuff tear [M75.100] 07/13/2012 Hematuria [R31.9] 06/09/2013 09/25/2015 Smoking history [Z87.891] 06/09/2013 Hypertension [I10] 07/21/2013 Atrial fibrillation (HCC) [I48.91] 08/19/2014 Panlobular emphysema (HCC) [J43.1] 04/28/2015 01/27/2023 Generalized arthritis [M19.90] 09/25/2015 History of DVT (deep vein thrombosis) [Z86.718] 11/10/2015 Encounter for colonoscopy due to history of cony*11/22/2015 11/22/2015 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 [K22.7*11/22/2015 11/22/2015 S/P cervical spinal fusion [Z98.1] 02/14/2016 BCC (basal cell carcinoma of skin) [C44.91] 12/24/2021 Heart murmur [R01.1] 12/24/2021 CHF (congestive heart failure) (HCC) [I50.9] 12/24/2021 Vaginal enterocele due to incomplete uterovagin*12/24/2021 Moderate COPD (c (more content not included)... [facility] 08-09-2024 Telephone encounter Note Patient has been identified by name and date of : Yes Patient phones for refill(s): Requested Prescriptions Pending Prescriptions Disp Refills fluticasone (FLONASE) 50 mcg/actuation nasal spray 1 Each 5 Sig: Use 2 Sprays in each nostril once daily. Rinse mouth after use. Date of last office visit in primary care: 07/22/2024 Date of next office visit in primary care: 08/11/2024 Please advise. Thank you. Toshia Jaquez LPN. [facility] 08-09-2024 Miscellaneous Notes Patient has been identified by name and date of : Yes Patient phones for refill(s): Requested Prescriptions Pending Prescriptions Disp Refills fluticasone (FLONASE) 50 mcg/actuation nasal spray 1 Each 5 Sig: Use 2 Sprays in each nostril once daily. Rinse mouth after use. Date of last office visit in primary care: 07/22/2024 Date of next office visit in primary care: 08/11/2024 Please advise. Thank you. Toshia Jaquez LPN. documented in this encounter [facility] 08-07-2024 Note HNO ID: [id number] Author: TRACEY BROWN MA Service: ? Author Type: Application Developer Manager Type: Progress Notes Filed: 08/07/2024 12:38 Note Text: POPULATION HEALTH NAVIGATION OUTREACH Action/I Please see ED Utilization summary below A follow-up appointment is noted to be scheduled on 10/22/24.. We are forwarding this patient to Network Navigation to schedule a sooner [facility] 07/31/24 PCP follow-up appointment. Thank you Care Gaps due : - 2024 MWE (last completed 04.02.2024) Call placed to patient to assist in scheduling ED follow up and MWE - Left message on machine to return call Reason for Outreach Community Monitoring/Network Navigator Pools AND Phone Line: CM Pool Care Gaps due: Medicare Annual Wellness Visit Follow-up Appointment Patient Contacted: Unable or unnecessary to reach patient: Left message Navigation Signature: Tracey Oro MA August 07, 2024 12:[address] [facility] 08-05-2024 Note HNO ID: [id number] Author: MAVIS SKINNER MA Service: ? Author Type: Application Developer Manager Type: Progress Notes Filed: 08/05/2024 16:56 Note Text: POPULATION HEALTH NAVIGATION OUTREACH Action/ ED (07/31/24) PCP follow-up appointment. Due for: Medicare Wellness Left VM; MyChart message sent Postponed 2 days Reason for Outreach Community Monitoring/Network Navigator Pools AND Phone Line: CM Pool Care Gaps due: Medicare Annual Wellness Visit Follow-up Appointment Patient Contacted: Unable or unnecessary to reach patient: Left message MyChart message sent Navigation Signature: Mavis Skinner MA August 05, 2024 4:[address] [facility] 08-05-2024 History of Present illness Narrative POPULATION HEALTH NAVIGATION OUTREACH Action/FYI ED (07/31/24) PCP follow-up appointment. Due for: Medicare Wellness Left VM; MyChart message sent Postponed 2 days Reason for Outreach Community Monitoring/Network Navigator Pools & Phone Line: CM Pool Care Gaps due: Medicare Annual Wellness Visit Follow-up Appointment Patient Contacted: Unable or unnecessary to reach patient: Left message DashBurstt message sent Navigation Signature: Mavis Skinner MA August 05, 2024 4:49 PM Summary: Chart review review per request of payor ACM JOSÉ MIGUEL RN Patient identified by name and date of . Reason for review or outreach: Chart Review José Miguel Priority Emergency Department Utilization REQUESTED ACTION/FYI: Please see ED Utilization summary below A follow-up appointment is noted to be scheduled on 10/22/24.. We are forwarding this patient to Network Navigation to schedule a sooner [facility] 07/31/24 PCP follow-up appointment. Thank you Exclusion Criteria Does not meet exclusion criteria ED DIAGNOSES/REASON(S) FOR ED USE: [facility] 07/31/24 OTHER FINDINGS/SUMMARY: Unable to locate ED Summary in Care Everywhere Patient Attributed To: E Payer: America MANN Action Taken: Referrals/Routed: Population Health Navigation: Appointment. Router to [facility] [[id number]] Contact made with patient: No, Chart review only. Signature: Naila JIANG,RN,[facility] Photoengraving Machine Operator/Tender Management Contract RN [phone] documented in this encounter [facility] 08-05-2024 Note HNO ID: [id number] Author: NAILA DODD RN Service: ? Author Type: Registered Nurse Type: Progress Notes Filed: 08/05/2024 16:41 Note Text: Summary: Chart review review per request of payor ACM JOSÉ MIGUEL RN Patient identified by name and date of . Reason for review or outreach: Chart Review José Miguel Priority Emergency Department Utilization REQUESTED ACTION/FYI: Please see ED Utilization summary below A follow-up appointment is noted to be scheduled on 10/22/24.. We are forwarding this patient to Network Navigation to schedule a sooner [facility] 07/31/24 PCP follow-up appointment. Thank you Exclusion Criteria Does not meet exclusion criteria ED DIAGNOSES/REASON(S) FOR ED USE: [facility] 07/31/24 OTHER FINDINGS/SUMMARY: Unable to locate ED Summary in Care Everywhere Patient Attributed To: ISRAEL Payer: America JOHNATHAN Action Taken: Referrals/Routed: Population Health Navigation: Appointment. Router to [facility] [[id number]] Contact made with patient: No, Chart review only. Signature: Naila Dodd MSN,RN,[facility] Photoengraving Machine Operator/Tender Management Contract RN [phone] [facility] 08-05-2024 Note Patient Outreach ([facility]) ELIZABETH PERSAUD ([id number]) 1945 [facility] Date Time Provider Department 08/05/24 NAILA DODD [facility] During your visit today, we recorded the following information about you: Naila Dodd RN 08/05/2024 4:41 PM Signed ACM JOSÉ MIGUEL RN Patient identified by name and date of . Reason for review or outreach: Chart Review José Miguel Priority Emergency Department Utilization REQUESTED ACTION/FYI: Please see ED Utilization summary below A follow-up appointment is noted to be scheduled on 10/22/24.. We are forwarding this patient to Network Navigation to schedule a sooner [facility] 07/31/24 PCP follow-up appointment. Thank you Exclusion Criteria Does not meet exclusion criteria ED DIAGNOSES/REASON(S) FOR ED USE: [facility] 07/31/24 OTHER FINDINGS/SUMMARY: Unable to locate ED Summary in Care Everywhere Patient Attributed To: SACHIE Payer: America MANN Action Taken: Referrals/Routed: Population Health Navigation: Appointment. Router to [facility] [[id number]] Contact made with patient: No, Chart review only. Signature: Naila JIANG,RN,[facility] Photoengraving Machine Operator/Tender Management Contract RN [phone] Mavis Skinner MA 08/05/2024 4:56 PM Signed POPULATION HEALTH NAVIGATION OUTREACH Action/FYI ED (07/31/24) PCP follow-up appointment. Due for: Medicare Wellness Left VM; MyChart message sent Postponed 2 days Reason for Outreach Community Monitoring/Network Navigator Pools AND Phone Line: Pool Care Gaps due: Medicare Annual Wellness Visit Follow-up Appointment Patient Contacted: Unable or unnecessary to reach patient: Left message MyChart message sent Navigation Signature: Mavis Skinner MA August 05, 2024 4:49 PM Tracey Brown MA 08/07/2024 12:38 PM Signed POPULATION HEALTH NAVIGATION OUTREACH Action/FYI Please see ED Utilization summary below A follow-up appointment is noted to be scheduled on 10/22/24.. We are forwarding this patient to Network Navigation to schedule a sooner [facility] 07/31/24 PCP follow-up appointment. Thank you Care Gaps due : - 2024 MWE (last completed 04.02.2024) Call placed to patient to assist in scheduling ED follow up and MWE - Left message on machine to return call Reason for Outreach Community Monitoring/Network Navigator Pools AND Phone Line: Pool Care Gaps due: Medicare Annual Wellness Visit Follow-up Appointment Patient Contacted: Unable or unnecessary to reach patient: Left message Navigation Signature: Tracey Oro MA August 07, 2024 12:34 PM Allergies As of Date: 08/05/2024 Noted Allergy Reaction CARDIZEM (DILTIAZEM HCL) 01/18/2015 7 - Swelling CODEINE 01/21/2006 11 - Vomiting Comments: Ringing in Ears. ENTEX (PHENYLEPHRINE-GUAIFENESIN) 03/06/2007 2 - Rash ETODOLAC 07/06/2012 14 - Other: See Comments Comments: Heart palpitations MELOXICAM 05/25/2012 14 - Other: See Comments Comments: Heart palpitations NAPROXEN 01/29/2011 7 - Swelling Comments: Possible allergy? Pt relates to naproxen TAPE (ADHESIVE TAPE (ROSINS)) 03/31/2023 2 - Rash TRAZODONE 08/19/2014 14 - Other: See Comments Comments: rapid hear beat ZANTAC (RANITIDINE HCL) 05/29/2016 2 - Rash 7 - Swelling Date Reviewed: 07/22/2024 Reviewed by: Dianna Ballard APRN.BOILERMAKER [employer]IP - Fully Assessed Reason for Visit: ACM JOSÉ MIGUEL RN [[id number]] Cmt: Chart review review per request of payor Prescriptions as of 08/07/2024 - benzonatate (TESSALON PERLE) 100 mg capsule Take 1 capsule by mouth three times a day as needed. - dofetilide (TIKOSYN) 125 mcg capsule 125 mcg two times a day. - pzfbpcnqywc-nbacaxntr-imohvkep (TRELEGY ELLIPTA) 100-62.5-25 mcg inhalation powder Inhale 1 Puff as instructed once daily. - sucralfate (CARAFATE) 100 mg/mL suspension Take 10 mL by mouth before meals and at bedtime. (560cc=2wks) - nystatin (MYCOSTATIN) 100,000 unit/mL suspension Take 5 mL by mouth four times daily. 1tsp swish in mouth for several minutes, then swallow (or expectorate) 4 times daily until gone. - diclofenac, EC, (VOLTAREN) 75 mg EC tablet Takes once daily PRN for acute pain/inflammation. Take with food. - omeprazole (PRILOSEC) 40 mg capsule Take 1 capsule by mouth once daily. - metoprolol succinate ER (TOPROL XL) 50 mg 24 hr tablet Take 1 tablet by mouth two times a day. - fluticasone (FLONASE) 50 mcg/actuation nasal spray Use 2 Sprays in each nostril once daily. Rinse mouth after use. - JARDIANCE 10 mg tablet Take 10 mg by mouth once daily. - Ipratropium (ATROVENT) 17 mcg/actuation inhaler Inhale 2 Puffs as instructed every 6 hours as needed for wheezing/shortness of breath. - furosemide (LASIX) 40 mg tablet Take 1 tablet by mouth twice daily. - apixaban (ELIQUIS) 5 mg tab(s) Take by mouth twice daily. - Bifidobacterium infantis (ALIGN) 10.5 mg (10 million (more content not included)... [facility] 08-01-2024 Discharge summary [facility] 07-31-2024 Discharge summary Note Date/Time August 01, 2024 12:18am [facility] Medical Records Department [address] [place] [address] Emergency Department Summary 07/31/24 MR#: [id number] Acct: [id number] Name: ELIZABETH PERSAUD Rep #:[id number] : 1945 79 From: Saul Guzman DO PCP: Dr. Minerva Shaver MD Status:REG E R Location: ED HPI History of Present Illness Chief Complaint: Palpitations Informant: patient Narrative Narrative: Patient is a 79-year-old female with history of paroxysmal atrial fibrillation status post cardiac ablation roughly 3 months ago. She is on Eliquis Tikosyn and metoprolol secondary to her A-fib. She was at work this evening doing her normal physical activity/job when she began to feel like her heart was racing/skipping beats. She states it does this intermittently so she was not concerned but then began to feel as if she was about to pass out and thereforepresents to the ER for evaluation. She states she has been taking all of her medication as directed. She denies any excessive stimulant use or illicit drug use. [facility] Medical History Osteoarthritis of right hip Right hip pain Hamstring muscle strain Left hip pain Acute stroke due to ischemia Tubular adenoma of colon URI (upper respiratory infection) Chronic neck and back pain Difficulty balancing when standing Abnormal bruising Diarrhea Chest pain Heart disease Shoulder pain SOB (shortness of breath) Cancer History of DVT (deep vein thrombosis) Arthritis Panlobular emphysema Atrial fibrillation Hypertension Rotator cuff tear Tendonitis of shoulder, right Carpal tunnel syndrome Calculus of kidney Moses's esophagus Paroxysmal atrial fibrillation Chronic diastolic (congestive) heart failure 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 100 mcg-umeclid 1 ea inhalation QDAY 08/11/23 Unknown History 62.5 mcg-vilant 25 mcg inhalat.powder (Trelegy Ellipta) fluticasone propionate 50 2 spray intranasal QDAY PRN 08/11/23 Unknown History mcg/actuation nasal allergy symptoms spray,suspension melatonin 5 mg tablet 10 mg PO HS PRN insomnia 06/04 Unknown History empagliflozin 10 mg tablet 10 mg PO DAILY #90 tabs Unknown Rx (Jardiance) omeprazole 40 mg capsule,delayed 40 mg PO QDAY 4 Unknown History release spironolactone 25 mg tablet 25 mg PO DAILY #30 tabs Unknown Rx calcium 333 mg-magnesium 133 mg-D3 1 tab PO DAILY 02/02 Unknown History 1.67 mcg-zinc 5 mg tablet dofetilide 125 mcg capsule 125 mcg PO BID 04/19/24 Unk nown History metoprolol succinate 25 mg 25 mg PO QDAY 04/19/24 Unkn own History tablet,extended release 24 hr sucralfate 100 mg/mL oral 10 ml PO ACHS PRN stoma 04/11 01/02 Unknown History suspension apixaban 5 mg tablet 5 mg PO BID #180 tabs Unknown Rx furosemide 20 mg tablet 40 mg PO QDAY 07/27/24 Unkno wn History Allergy/AdvReac Type Severity Reaction Status Date / Time etodolac Allergy Intermediate Other Verified 07/31/24 22:37 diltiazem HCl (From Cardizem) Allergy Swelling Verified 07/31/24 22:37 of face and neck naproxen Allergy Swelling Verified 07/31/24 22:37 (whole body) prednisone Allergy Other Verified 07/31/24 22:37 amiodarone AdvReac Severe Severe Verified 07/31/24 22:37 dyspnea after taking PO Amiodarone adhesive AdvReac Rash Verified 07/31/24 22:37 albuterol AdvReac Other Verified 07/31/24 22:37 codeine AdvReac Vomiting Verified 07/31/24 22:37 hydrocodone bitartrate (From AdvReac Vomiting Verified 07/31/24 22:37 Vicodin) morphine AdvReac Vomiting Verified 07/31/24 22:37 Family History Sister Afib Father CAD (coronary artery disease) Brother CVA (cerebral vascular accident) Mother No problems noted. Sister No problems noted. Brother Wilsons disease Brother Wilsons disease Surgical History Hx of fusion of cervical spine History of radiofrequency ablation procedure for cardiac arrhythmia (07/27/15) History of left heart catheterization (03/15/13) History of cardioversion (04/15/24) Hx of cholecystectomy H/O neck surgery ovarian surgery H/O hernia repair Social History Smoking Status: Former smoker alcohol intake: never substance use type: does not use caffeine: Yes Type: coffee Number of servings: 1 what type of physical activity do you participate in: walking frequency: daily seatbelt use: always do you feel safe at home: Yes ROS ROS ED Constitutional Constitutional ED: Denies chills or fever(s) Eyes Eyes: Denies blurry vision or change in vision ENT ENT ED: Denies sore throat Cardiovascular Cardiovascular: Reports palpitations, racing heartbeat and other Details: Positive lightheadedness/near syncope ; Denies chest pain Respiratory/Chest Respiratory/Chest: Denies cough or dyspnea Gastrointestinal Gastrointestinal: Denies abdominal pain, diarrhea, nausea or vomiting Genitourinary Genitourinary ED: Denies dysuria Musculoskeletal Musculoskeletal: Denies back pain or myalgias Integumentary Denies rash Neurologic Neurologic: Denies headache(s) Hematologic/Lymphatic Hematologic/Lymphatic: Reports easy bleeding and easy bruising EXAM Physical Exam Const Vital Signs: 07/31/24 22:30 07/31/24 22:34 07/31/24 22:40 Temperature 97 F L Temperature Source Oral Pulse Rate 188 H 172 H 143 H Respiratory Rate 23 H 16 Blood Pressure 159/86 H Blood Pressure Mean 110 Pulse Ox 97 93 07/31/24 22:45 07/31/24 22:47 07/31/24 23:00 Temperature Temperature Source Pulse Rate 123 H 129 H 66 Respiratory Rate 16 18 11 L Blood Pressure 124/84 H 118/65 Blood Pressure Mean 97 81 Pulse Ox 89 93 94 07/31/24 23:15 07/31/24 23:30 Temperature Temperature Source Pulse Rate 69 67 Respiratory Rate 12 10 L Blood Pressure 123/63 H 137/69 H Blood Pressure Mean 83 88 Pulse Ox 94 95 Positive well nourished and well developed General Appearance ED: well developed; Negative for pallor HEENT HEENT Narrative: Normocephalic atraumatic Eyes PERRL and EOMs intact bilaterally General Eye ED: Negative for pale conjunctiva or scleral icterus Neck supple and no JVD Neck Narrative: No nuchal rigidity or meningeal signs Chest Wall palpation of chest normal Chest Narrative: No bony deformity or crepitance Resp normal respiratory effort and clear to auscultation bilaterally Resp Narrative: No nasal flaring retractions tachypnea or accessory muscle use Cardio Rate: other Other Details: Irregularly irregular rhythm with tachycardic rate consistent with atrial fibrillation with RVR GI normal to inspection, nondistended, normoactive bowel sounds, soft to palpation,non-tender, non-distended and no masses Auscultation: normoactive bowel sounds Palpation: soft Extremity normal to inspection Extremity Narrative: No asymmetric edema no pitting edema negative Homans' sign bilaterally Neuro oriented x3, CN's II-XII intact bilaterally and no sensory deficits noted Sensorium / Orientation: alert Motor Exam: strength 5/5 throughout Psych mental status grossly normal Skin no rashes or lesions noted General Skin Exam: Negative for jaundice or pallor MDM MDM MDM Narrative Medical decision making narrative: Patient arrived to the ER tachycardic at approximately 170 to 180 bpm with an irregular rhythm consistent with her history of paroxysmal atrial fibrillation. Otherwise she is awake and alert and protecting her airway and maintaining her blood pressure so therefore there is no need for an emergent cardioversion. In order to assess for reversible causes of her A-fib such as acute blood loss anemia acute kidney injury clinically significant [place] abnormality or thyroiddisorder basic blood work was obtained. Patient was started on IV fluids in case dehydration was a cause of her breakthrough A-fib and ordered IV Lopressor. After receiving roughly 500 mL of fluid and 3 doses of Lopressor the patient underwent spontaneous cardioversion back to normal sinus rhythm. The patient remained in normal sinus rhythm for the rest of her ER stay. Labs revealed no clinically significant findings. Therefore at this time as patient has a known history of paroxysmal atrial fibrillation and is on medication for it as well has anticoagulation there is no need for continued observation in the ER and sheis otherwise safe for discharge. History & Record Review Discussion w/independent historian: Patient Lab Data Labs: Laboratory Results - last 24 hr 07/31/24 22:34 WBC 10.5 RBC 4.61 Hgb 14.7 Hct 42.9 MCV 93.1 MCH 31.9 MCHC 34.3 RDW Std Deviation 43.4 RDW Coeff of Elvie 12.9 Plt Count 320 MPV 11.0 Immature Gran % (Auto) 0.400 Neut % (Auto) 45.5 L Lymph % (Auto) 44.5 H Willacy % (Auto) 7.7 Eos % (Auto) 1.4 Baso % (Auto) 0.5 Absolute Neuts (auto) 4.8 Absolute Lymphs (auto) 4.65 H Nucleated RBC % 0 Sodium 143 Potassium 4.6 Chloride 105 Carbon Dioxide 22.9 Anion Gap 15 BUN 28 H Creatinine 1.11 Estim Creat Clear Calc 35.99 L Est GFR (MDRD) Non-Af 51 L BUN/Creatinine Ratio 25.2 H Glucose 128 H Calcium 10.1 Magnesium 2.1 TSH 4.480 H Discharge Plan Triage Chief Complaint: Palpitations ED Provider: Saul Guzman Dx/Rx/DC Orders Clinical Impression: Paroxysmal atrial fibrillation with rapid ventricular response, Chronic diastolic (congestive) heart failure, Current use of long-term anticoagulation, Hypertension Instructions: AFib Dc Prescriptions: No Action cyclobenzaprine 10 mg tablet 10 mg PO HS PRN (Reason: muscle spasm) fluticasone propionate 50 mcg/actuation spray,suspension 2 spray intranasal QDAY PRN (Reason: allergy symptoms) melatonin 5 mg tablet 10 mg PO HS PRN (Reason: insomnia) Trelegy Ellipta 100-62.5-25 mcg blister with device 1 ea inhalation QDAY spironolactone 25 mg tablet 25 mg PO DAILY Qty: 30 11RF omeprazole 40 mg capsule,delayed release(DR/EC) 40 mg PO QDAY metoprolol succinate 25 mg tablet extended release 24 hr 25 mg PO QDAY dofetilide 125 mcg capsule 125 mcg PO BID calc carb-mag ox-D3-zinc gluc 333 mg-133 mg- 1.67 mcg-5 mg tablet 1 tab PO DAILY furosemide 20 mg tablet 40 mg PO QDAY multivitamin with folic acid 1 TABLET tablet 1 tab PO DAILY Patient Comments: VITAMIN sucralfate 100 mg/mL suspension 10 ml PO ACHS PRN (Reason: stoma) Patient Comments: Take 10 mL by mouthEbefore meals and at bedtime. (560cc=2wks) Jardiance 10 mg tablet 10 mg PO DAILY Qty: 90 3RF apixaban 5 mg tablet 5 mg PO BID Qty: 180 3RF Primary Care Provider: Minerva Shaver Referrals: Minerva Shaver MD [Primary Care Provider] - Activity Restrictions/Additional Instructions: Please continue all of your home medications as directed by your doctor and return to the ER should you have any further concerns or worsening of symptoms Print Language: Ghanaian Disposition Disposition: Home, Self Care What to do if you have Problems For any increased pain, shortness of breath, bleeding, nausea or vomiting, chestpain, or any unexpected problems, contact your Primary Care Provider. Call [facility] ([phone]) or report to the closest Emergency Room. Call 911 if necessary. 08/01/24 0017 <Electronically signed by Saul Guzman DO> Cosigner Signature (if applicable): CC: Dr. Minerva Shaver MD ~ Signed ADDENDUM by Saul Guzman DO on 08/01/24 at 0018 Initial EKG displays an irregularly irregular rhythm with tachycardic rate of 119 bpm consistent with atrial fibrillation with rapid ventricular response. There are nonspecific rate related ST segment changes without acute current of injury change. QTc is 472 Repeat EKG after spontaneous cardioversion shows normal sinus rhythm at a rate of 67 without acute current of injury or dysrhythmia change. QTc is 462. MA interval is normal at 146. 08/01/24 0018<Electronically signed by Saul Guzman DO> Cosigner Signature (if applicable): cc: Dr. Minerva Shaver MD ~* Signed [facility] Work Phone: 1(608) 858-197103-20-2025 Telephone encounter Note* Telephone Encounter - Tamanna Cordova MA - 07/29/2024 1:53 PM EDT [facility] papers received, on Dianna's desk for review. [facility]03-20-2025 Miscellaneous Notes* Telephone Encounter - Tamanna Cordova MA - 07/29/2024 1:53 PM EDT [facility] papers received, on Dianna's desk for review. * Telephone Encounter - Brianda Melo RN - 07/29/2024 1:20 PM EDT Patient calls back and states that she saw Dr. Moreno and Dr. Moreno wrote order for physical therapy so she is already in physical therapy. Patient states that she was just sent another message from [facility] that stated that paperwork was not filled out right. Brianda Melo RN * Telephone Encounter - Tamanna Cordova MA - 07/29/2024 11:12 AM EDT Left message for return call. * Telephone Encounter - Minerva Shaver MD - 07/29/2024 9:36 AM EDT Does she want Physical Therapy or gait and balance? Not sure if she will qualify for pulm or cardiac rehab. RegardsMinerva MD * Telephone Encounter - Brit Burnham LPN - 07/29/2024 8:13 AM EDT Called and spoke to patient stated order is from 04/02/24 office visit and was not able to go to Rehab at that time. Still having the same issue as noted on 04/02/24 from office visit. She has general osteoarthrosis, which has made it difficult for her in the back, hips and knees, and she still wants to work, as it gets better when she moves more. She just keeps limping most of the time. Has balance issues, from the back issues and related neuropathy. Brit Burnham LPN July 29, 2024 8:15 AM * Telephone Encounter - Minerva Shaver MD - 07/28/2024 4:33 PM EDT Can some one call her and ask for more details? Sindhu documented [facility] Telephone encounter Note * Telephone Encounter - Brianda Melo RN - 07/29/2024 1:20 PM EDT Patient calls back and states that she saw Dr. Moreno and Dr. Moreno wrote order for physical therapy so she is already in physical therapy. Patient states that she was just sent another message from [facility] that stated that paperwork was not filled out right. Brianda Melo RN [facility]03-20-[address] note [facility] Imaging Services [address], [place] [id number] Hips B/L min 2 views w/ Pelvis MR#: [id number] Acct: [id number] Name: ELIZABETH PERSAUD Rep #: [id number] : 1945 F 79 From: Adrien Farrar MD PCP: Dr. Minerva Shaver MD Status: REG C STEVO Study:Hips B/L min 2 views w/ Pelvis Date of Exam: 07/29/24 Exam# [id number] Ordering Dr: Nay Moreno MD PROCEDURE: HIPS B/L MIN 2 VIEWS W/ PELVIS 07/29/2024 REASON FOR EXAM: LIANA HIP PAIN TECHNIQUE: Three views of both hips were obtained. COMPARISON: Comparison is made with prior study dated August 15, 2023. FINDINGS: Stable marked degree of joint space narrowing and osteoarthritis of the right hip joint with peripheral spur formation. Stable moderate to severe narrowing of the left hip joint as well. Degenerative changes of the symphysis pubis as well as the sacroiliac joints bilaterally. Degenerative changes of the lumbar spine. Bilateral tubal ligation clips are seen in the pelvis. Large amount of fecal material is seen in the colon. RAD/Hips B/L min 2 views w/ Pelvis IMPRESSION: Essentially stable examination with degenerative changes of both hip joints worse on the right sideas described. Reading Location: [place] [address] CC: Dr. Omid Moreno MD; Dr. Minerva Shaver MD ~ [employer] Certified Network Associate: Signed [facility]03-20-2025 Telephone encounter Note* Telephone Encounter - Tamanna Cordova MA - 07/29/2024 11:12 AM EDT Left message for return call. [facility]03-20-2025 Telephone encounter Note* Telephone Encounter - Minerva Shaver MD - 07/29/2024 9:36 AM EDT Does she want Physical Therapy or gait and balance? Not sure if she will qualify for pulm or cardiac rehab. Regards, Minerva Shaver MD [facility]03-20-2025 Telephone encounter Note* Telephone Encounter - Brit Burnham LPN - 07/29/2024 8:13 AM EDT Called and spoke to patient stated order is from 04/02/24 office visit and was not able to go to Rehab at that time. Still having the same issue as noted on 04/02/24 from office visit. She has general osteoarthrosis, which has made it difficult for her in the back, hips and knees, and she still wants to work, as it gets better when she moves more. She just keeps limping most of the time. Has balance issues, from the back issues and related neuropathy. Brit Burnham LPN July 29, 2024 8:15 AM [facility]03-19-2025 Telephone encounter Note* Telephone Encounter - Minerva Shaver MD - 07/28/2024 4:33 PM EDT Can some one call her and ask for more details? 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 Work Phone: 1(260) 337-892903-18-2025 Evaluation note* Diagnosis Onset Date Resolution Status Admit Date 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 July 27, 2024 11:00am Chronic diastolic (congestiv e) heart failure chronic July 27, 2024 11:00am Paroxysmal atrial fibrillation chron ic July 27, 2024 11:00am Degenerative disc disease, lumbar ac [place] August 17, 2024 10:54am Lumbar radiculopathy acute Apri l 2024 10:54am Neck pain with history of cervical spinal surgery acute August 10:54am Persistent atrial fibrillati on with RVR acute September 30, 2024 1 0:52am Complete AV block chronic October 9:56am Hx of atrioventricular node ablation chronic October 14, 2024 9 :56am Presence of cardiac pacemaker chroni c October 14, 2024 9:56am [facility] Work Phone: 1(496) 989-438403-17-2025 Telephone encounter Note* Telephone Encounter - Dianna Ballard APRN.CNP - 07/26/2024 2:06 PM EDT See TE Dianna Ballard APRN.CNP [facility]03-17-2025 Miscellaneous Notes* Telephone Encounter - Dianna Ballard APRN.CNP - 07/26/2024 2:06 PM EDT See TE Dianna Ballard APRN.CNP documented in this encounterK[facility]2025 Telephone encounter Note * Telephone Encounter - Dianna Ballard APRN.CNP - 07/23/2024 3:07 PM EDT Letter sent. Please call and verify it has been received since it is so close to her shift starting. Thank you Dianna Ballard APRN.CNP [facility]03-14-2025 Miscellaneous Notes* Telephone Encounter - Dianna Ballard APRN.CNP - 07/23/2024 3:07 PM EDT Letter sent. Please call and verify it has been received since it is so close to her shift starting. Thank you Dianna Ballard APRN.CNP * Telephone Encounter - Fior Zepeda LPN - 07/23/2024 10:14 AM EDT Patient calling needs a return to work note saying she has no restrictions, she forgot to ask for this yesterday at her appt. Patient is asking to have note sent to her my chart. Patient said she works today at 4 pm. Please advise [facility] Telephone encounter Note * Telephone Encounter - Fior Zepeda LPN - 07/23/2024 10:14 AM EDT Patient calling needs a return to work note saying she has no restrictions, she forgot to ask for this yesterday at her appt. Patient is asking to have note sent to her my chart. Patient said she works today at 4 pm. Please advise [facility]03-13-2025 NoteHNO ID: [id number] Author: DIANNA BALLARD APRN.[employer] Service: ? Author Type: Nurse Practitioner Type: Progress Notes Filed: 07/22/2024 12:33 Note Text: CC: Patient presents with: Recheck: 1 week follow up HPI Elizabeth Persaud is a 79 year old female who presents today for follow up. Has been recovering from outpt treatment of pneumonia and then viral URI with otitis media. Dates out of work were 07/04 through 07/22 . Reports she is feeling much better now and is ready to return back to work. Denies fever chills, dizziness, syncope, weakness, falls, confusion, cough, wheezing, shortness of breath, chest pain, edema, or palpitations. REVIEW OF SYSTEMS See HPI PAST MEDICAL HISTORY Diagnosis Date Anxiety Arthritis Atrial fibrillation (HCC) s/p ablation 07/2015 Backache, unspecified Moses's esophagus Basal cell carcinoma BPPV (benign paroxysmal positional vertigo) Cancer (HCC) Basal cell on forehead Carpal [...] TUBE ABDL/VAG APPR UNI/BI Tubal ligation NEUROPLASTY AND/TRANSPOS MEDIAN NRV CARPAL TUNNE 02/14/2012 Carpal tunnel [...] surgery with implants- Dr Jacob Aguilar at [facility] PAST SURGICAL HISTORY OF 07/27/2015 cryo ablation, cardiac PAST SURGICAL HISTORY OF cardiac ablation RPR UMBILICAL HRNA 5 YRS/> REDUCIBLE 07/17/2010 Hernia repair, umbilical >5yr [facility] Dr Manuel Hoover SHX COSMETIC SURGERY SKIN BIOPSY HX ALLERGIES Cardizem [Diltiazem Hcl], Codeine, Entex [Phenylephrine-Guaifenesin], Etodolac, Meloxicam, Naproxen, Tape [Adhesive Tape (Rosins)], Trazodone, and Zantac [Ranitidine Hcl] MEDICATIONS benzonatate (TESSALON PERLE) 100 mg capsule Take 1 capsule by mouth three times a day as needed. amoxicillin-clavulanate potassium (AUGMENTIN) 875-125 mg per tablet Take 1 tablet by mouth every 12 hours for 7 days. dofetilide (TIKOSYN) 125 mcg capsule 125 mcg two times a day. fpazlfnfkzk-numzimwli-dpebhqjf (TRELEGY ELLIPTA) 100-62.5-25 mcg inhalation powder Inhale 1 Puff as instructed once daily. sucralfate (CARAFATE) 100 mg/mL suspension Take 10 mL by mouth before meals and at bedtime. (560cc=2wks) nystatin (MYCOSTATIN) 100,000 unit/mL suspension Take 5 mL by mouth four times daily. 1tsp swish in mouth for several minutes, then swallow (or expectorate) 4 times daily until gone. diclofenac, EC, (VOLTAREN) 75 mg EC tablet Takes once daily PRN for acute pain/inflammation. Take with food. omeprazole (PRILOSEC) 40 mg capsule Take 1 capsule by mouth once daily. metoprolol succinate ER (TOPROL XL) 50 mg 24 hr tablet Take 1 tablet by mouth two times a day. fluticasone (FLONASE) 50 mcg/actuation nasal spray Use 2 Sprays in each nostril once daily. Rinse mouth after use. JARDIANCE 10 mg tablet Take 10 mg by mouth once daily. Ipratropium (ATROVENT) 17 mcg/actuation inhaler Inhale 2 Puffs as instructed every 6 hours as needed for wheezing/shortness of breath. furosemide (LASIX) 40 mg tablet Take 1 tablet by mouth twice daily. apixaban (ELIQUIS) 5 mg tab(s) Take by mouth twice daily. Bifidobacterium infantis (ALIGN) 10.5 mg (10 million cell) chew Take 1 tablet by mouth once daily. potassium chloride ER (K-DUR, KLOR-CON) 20 mEq tablet Take 1 tablet by mouth twice daily. (Patient not taking: Reported on 04/02/2024) melatonin 3 mg ODT Take 1 tablet by mouth daily at bedtime. MULTIVITAMIN WITH MINERALS (more content not included)...[facility]03-13-2025 History of Present illness Narrative* Dianna Ballard APRN.[employer] - 07/22/2024 9:47 AM EDT CC: Patient presents with: Recheck: 1 week follow up HPI Elizabeth Persaud is a 79 year old female who presents today for follow up. Has been recovering from outpt treatment of pneumonia and then viral URI with otitis media. Dates out of work were 07/04 through 07/22 . Reports she is feeling much better now and is ready to return back to work. Denies fever chills, dizziness, syncope, weakness, falls, confusion, cough, wheezing, shortness of breath, chest pain, edema, or palpitations. REVIEW OF SYSTEMS See HPI PAST MEDICAL HISTORY Diagnosis Date Anxiety Arthritis Atrial fibrillation (HCC) s/p ablation 07/2015 Backache, unspecified Moses's esophagus Basal cell carcinoma BPPV (benign paroxysmal positional vertigo) Cancer (HCC) Basal cell on forehead Carpal [...] surgery with implants- Dr Jacob Aguilar at [facility] PAST SURGICAL HISTORY OF 07/27/2015 cryo ablation, cardiac PAST SURGICAL HISTORY OF cardiac ablation RPR UMBILICAL HRNA 5 YRS/> REDUCIBLE 07/17/2010 Hernia repair, umbilical >5yr [facility] Dr Manuel Hoover SHX COSMETIC SURGERY SKIN BIOPSY HX ALLERGIES Cardizem [Diltiazem Hcl], Codeine, Entex [Phenylephrine-Guaifenesin], Etodolac, Meloxicam, Naproxen, Tape [Adhesive Tape (Rosins)], Trazodone, and Zantac [Ranitidine Hcl] MEDICATIONS benzonatate (TESSALON PERLE) 100 mg capsule Take 1 capsule by mouth three times a day as needed. amoxicillin-clavulanate potassium (AUGMENTIN) 875-125 mg per tablet Take 1 tablet by mouth every 12hours for 7 days. dofetilide (TIKOSYN) 125 mcg capsule 125 mcg two times a day. tqljpqcqmvj-wylxahvhq-iraaoeiq (TRELEGY ELLIPTA) 100-62.5-25 mcg inhalation powder Inhale 1 Puff asinstructed once daily. sucralfate (CARAFATE) 100 mg/mL suspension Take 10 mL by mouth before meals and at bedtime. (560cc=2wks) nystatin (MYCOSTATIN) 100,000 unit/mL suspension Take 5 mL by mouth four times daily. 1tsp swish inmouth for several minutes, then swallow (or expectorate) 4 times daily until gone. diclofenac, EC, (VOLTAREN) 75 mg EC tablet Takes once daily PRN for acute pain/inflammation. Take with food. omeprazole (PRILOSEC) 40 mg capsule Take 1 capsule by mouth once daily. metoprolol succinate ER (TOPROL XL) 50 mg 24 hr tablet Take 1 tablet by mouth two times a day. fluticasone (FLONASE) 50 mcg/actuation nasal spray Use 2 Sprays in each nostril once daily. Rinse mouth after use. JARDIANCE 10 mg tablet Take 10 mg by mouth once daily. Ipratropium (ATROVENT) 17 mcg/actuation inhaler Inhale 2 Puffs as instructed every 6 hours as needed for wheezing/shortness of breath. furosemide (LASIX) 40 mg tablet Take 1 tablet by mouth twice daily. apixaban (ELIQUIS) 5 mg tab(s) Take by mouth twice daily. Bifidobacterium infantis (ALIGN) 10.5 mg (10 million cell) chew Take 1 tablet by mouth once daily. potassium chloride ER (K-DUR, KLOR-CON) 20 mEq tablet Take 1 tablet by mouth twice daily. (Patient not taking: Reported on 04/02/2024) melatonin 3 mg ODT Take 1 tablet by mouth daily at bedtime. MULTIVITAMIN WITH MINERALS (ONE-A-DAY 50 PLUS ORAL) Take by mouth. CALCIUM CARBONATE/VITAMIN D3 (VITAMIN D-3 ORAL) Take 1,000 mg by mouth five times daily. QRMXTAK-KWPDNATUL-CPPO ORAL Take by mouth. FAMILY HISTORY Problem Relation Age of Onset Hypertension Mother Stroke Mother Coronary Artery Disease Father other (wilsons disease) Brother other (VINCE'S DISEASE) Brother Liver dse, cirrhosis Social History Tobacco Use Smoking status: Former Current packs/day: 0.00 Average packs/day: 2.0 packs/day for 35.0 years (70.0 ttl pk-yrs) Types: Cigarettes Start date: 11/09/1970 Quit date: 11/09/2005 Years since quittin.7 Smokeless tobacco: Never Tobacco comments: Stopped smoking 12/2005 Vaping Use Vaping status: Never Used Substance Use Topics Alcohol use: Not Currently Drug use: No PHYSICAL EXAM BP 132/74 Pulse 64 Temp 36.4 C (97.6 F) (Temporal) Resp 16 Wt 61.7 kg (136 lb) SpO2 97% BMI 25.68 kg/m General Appearance: well appearing, in no acute distress, alert Eyes: conjunctiva pink and moist, no icterus, sclera white, non-injected Lungs: Lungs clear to auscultation. No wheezing, rhonchi, rales. Heart: RRR without murmur, gallop, or rubs. No ectopy Health maintenance reviewed with patient: Depression Screening Never done Anxiety Screening Never done Shingrix Vaccine(3 of 3) due on 11/14/2021 RSV Vaccine(1 - 1-dose 75+ series) Never done Covid-19 Vaccine( season) due on 01/11/2024 Advance Directive Discussion due on 05/12/2024 Annual PCP Team Chronic Disease Visit due on 07/15/2025 BP Controlled (<130/80) due on 07/15/2025 Diabetes Screening due on 04/21/2027 DTaP,Tdap,Td Vaccine(2 - Td or Tdap) due on 09/04/2033 Bone Density Screening Completed Spirometry Completed Influenza Vaccine Completed Hepatitis C Screening Completed Pneumococcal Vaccine: 50+ Completed Mammogram Screening Discontinued Colorectal Cancer Screening Discontinued DATA REVIEWED: No new labs ASSESSMENT/PLAN: 1. Pneumonia of right upper lobe due to infectious organism - ICD9: 486, ICD10: J18.9 (primary diagnosis) Symptoms resolved, no concerns on assessment. [place] papers signed and faxed, copy given to pt. Jatin young to work Follow up for any further concerns - repeat CXR in 4-6 weeks - XR CHEST 2V FRONTAL/LAT Prescription instructions reviewed with patient as applicable. Potential red flag symptoms discussed with the patient. Reviewed appropriate action plan to take if red flag symptoms occur. Patient agreeable to treatment plan. Dianna Ballard APRN.CNP documented in this encounterK[facility]03-[facility]-2025 NoteHNO ID: [id number] Author: DIANNA BALLARD APRN.CNP Service: ? Author Type: Nurse Practitioner Type: Progress Notes Filed: 07/15/2024 14:20 Note Text: CC: Patient presents with: Recheck: 1 week follow up HPI Elizabeth Persaud is a 79 year old female who presents today for follow up on pneumonia. Was seen a week ago and recovering from outpatient treatment of pneumonia. Was feeling better but not fully was following up today to see if she was feeling up to going back to work. Finished her doxycycline this morning. Today she returns and had been feeling better but started feeling ill again 5 days ago. Started with runny nose and sneezing. Then started with fever of 101, body aches, skin was tender, sinus congestion, fatigue, non productive, cough, and just felt terrible. Currently she feels fatigued, low appetite, tickle in her throat producing a cough, sinus congestion, right ear pain, feels like right side of ear is swollen, feels feverish, eyes feel hot, short of breath, wheezing, chest burning with inspiration sometimes, nausea, headaches, and fatigue. Denies change in chronic palpitations, edema, diarrhea, vomiting, dizziness, or syncope. Does have history of a-fib and is on eliquis. Denies any interruption in her eliquis. REVIEW OF SYSTEMS See HPI PAST MEDICAL HISTORY Diagnosis Date Anxiety Arthritis Atrial fibrillation (HCC) s/p ablation 07/2015 Backache, unspecified Moses's esophagus Basal cell carcinoma BPPV (benign paroxysmal positional vertigo) Cancer (HCC) Basal cell on forehead Carpal [...] TUBE ABDL/VAG APPR UNI/BI Tubal ligation NEUROPLASTY AND/TRANSPOS MEDIAN NRV CARPAL TUNNE 02/14/2012 Carpal tunnel [...] surgery with implants- Dr Jacob Aguilar at [facility] PAST SURGICAL HISTORY OF 07/27/2015 cryo ablation, cardiac PAST SURGICAL HISTORY OF cardiac ablation RPR UMBILICAL HRNA 5 YRS/> REDUCIBLE 07/17/2010 Hernia repair, umbilical >5yr [facility] Dr Manuel Hoover SHX COSMETIC SURGERY SKIN BIOPSY HX ALLERGIES Cardizem [Diltiazem Hcl], Codeine, Entex [Phenylephrine-Guaifenesin], Etodolac, Meloxicam, Naproxen, Tape [Adhesive Tape (Rosins)], Trazodone, and Zantac [Ranitidine Hcl] MEDICATIONS doxycycline (VIBRA-TABS) 100 mg tablet Take 1 tablet by mouth two times a day for 10 days. dofetilide (TIKOSYN) 125 mcg capsule 125 mcg two times a day. hrfgqeqfzmc-liocxlyxy-pqyryzvj (TRELEGY ELLIPTA) 100-62.5-25 mcg inhalation powder Inhale 1 Puff as instructed once daily. sucralfate (CARAFATE) 100 mg/mL suspension Take 10 mL by mouth before meals and at bedtime. (560cc=2wks) nystatin (MYCOSTATIN) 100,000 unit/mL suspension Take 5 mL by mouth four times daily. 1tsp swish in mouth for several minutes, then swallow (or expectorate) 4 times daily until gone. diclofenac, EC, (VOLTAREN) 75 mg EC tablet Takes once daily PRN for acute pain/inflammation. Take with food. omeprazole (PRILOSEC) 40 mg capsule Take 1 capsule by mouth once daily. metoprolol succinate ER (TOPROL XL) 50 mg 24 hr tablet Take 1 tablet by mouth two times a day. fluticasone (FLONASE) 50 mcg/actuation nasal spray Use 2 Sprays in each nostril once daily. Rinse mouth after use. JARDIANCE 10 mg tablet Take 10 mg by mouth once daily. Ipratropium (ATROVENT) 17 mcg/actuation inhaler Inhale 2 Puffs as instructed every 6 hours as nee (more content not included)...[facility] 07-15-2024 History of Present illness Narrative* Dianna aBllard APRN.[employer] - 07/15/2024 1:43 PM EST CC: Patient presents with: Recheck: 1 week follow up HPI Elizabeth Persaud is a 79 year old female who presents today for follow up on pneumonia. Was seen a week ago and recovering from outpatient treatment of pneumonia. Was feeling better but not fully was following up today to see if she was feeling up to going back to work. Finished her doxycycline this morning. Today she returns and had been feeling better but started feeling ill again 5 days ago. Started with runny nose and sneezing. Then started with fever of 101, body aches, skin was tender, sinus congestion, fatigue, non productive, cough, and just felt terrible. Currently she feels fatigued, low appetite, tickle in her throat producing a cough, sinus congestion, right ear pain, feels like right side of ear is swollen, feels feverish, eyes feel hot, short of breath, wheezing, chest burning with inspiration sometimes, nausea, headaches, and fatigue. Denies change in chronic palpitations, edema, diarrhea, vomiting, dizziness, or syncope. Does have history of a-fib and is on eliquis. Denies any interruption in her eliquis. REVIEW OF SYSTEMS See HPI PAST MEDICAL HISTORY Diagnosis Date Anxiety Arthritis Atrial fibrillation (HCC) s/p ablation 07/2015 Backache, unspecified Moses's esophagus Basal cell carcinoma BPPV (benign paroxysmal positional vertigo) Cancer (HCC) Basal cell on forehead Carpal [...] surgery with implants- Dr Jacob Aguilar at [facility] PAST SURGICAL HISTORY OF 07/27/2015 cryo ablation, cardiac PAST SURGICAL HISTORY OF cardiac ablation RPR UMBILICAL HRNA 5 YRS/> REDUCIBLE 07/17/2010 Hernia repair, umbilical >5yr [facility] Dr Manuel Hoover SHX COSMETIC SURGERY SKIN BIOPSY HX ALLERGIES Cardizem [Diltiazem Hcl], Codeine, Entex [Phenylephrine-Guaifenesin], Etodolac, Meloxicam, Naproxen, Tape [Adhesive Tape (Rosins)], Trazodone, and Zantac [Ranitidine Hcl] MEDICATIONS doxycycline (VIBRA-TABS) 100 mg tablet Take 1 tablet by mouth two times a day for 10 days. dofetilide (TIKOSYN) 125 mcg capsule 125 mcg two times a day. kualhjyafud-gngzdrztn-uwqhxbcc (TRELEGY ELLIPTA) 100-62.5-25 mcg inhalation powder Inhale 1 Puff asinstructed once daily. sucralfate (CARAFATE) 100 mg/mL suspension Take 10 mL by mouth before meals and at bedtime. (560cc=2wks) nystatin (MYCOSTATIN) 100,000 unit/mL suspension Take 5 mL by mouth four times daily. 1tsp swish inmouth for several minutes, then swallow (or expectorate) 4 times daily until gone. diclofenac, EC, (VOLTAREN) 75 mg EC tablet Takes once daily PRN for acute pain/inflammation. Take with food. omeprazole (PRILOSEC) 40 mg capsule Take 1 capsule by mouth once daily. metoprolol succinate ER (TOPROL XL) 50 mg 24 hr tablet Take 1 tablet by mouth two times a day. fluticasone (FLONASE) 50 mcg/actuation nasal spray Use 2 Sprays in each nostril once daily. Rinse mouth after use. JARDIANCE 10 mg tablet Take 10 mg by mouth once daily. Ipratropium (ATROVENT) 17 mcg/actuation inhaler Inhale 2 Puffs as instructed every 6 hours as needed for wheezing/shortness of breath. furosemide (LASIX) 40 mg tablet Take 1 tablet by mouth twice daily. apixaban (ELIQUIS) 5 mg tab(s) Take by mouth twice daily. Bifidobacterium infantis (ALIGN) 10.5 mg (10 million cell) chew Take 1 tablet by mouth once daily. potassium chloride ER (K-DUR, KLOR-CON) 20 mEq tablet Take 1 tablet by mouth twice daily. (Patient not taking: Reported on 04/02/2024) melatonin 3 mg ODT Take 1 tablet by mouth daily at bedtime. MULTIVITAMIN WITH MINERALS (ONE-A-DAY 50 PLUS ORAL) Take by mouth. CALCIUM CARBONATE/VITAMIN D3 (VITAMIN D-3 ORAL) Take 1,000 mg by mouth five times daily. JJIYBFZ-[id number]-MPTI ORAL Take by mouth. FAMILY HISTORY Problem Relation Age of Onset Hypertension Mother Stroke Mother Coronary Artery Disease Father other (wilsons disease) Brother other (VINCE'S DISEASE) Brother Liver dse, cirrhosis Social History Tobacco Use Smoking status: Former Current packs/day: 0.00 Average packs/day: 2.0 packs/day for 35.0 years (70.0 ttl pk-yrs) Types: Cigarettes Start date: 11/09/1970 Quit date: 11/09/2005 Years since quittin.6 Smokeless tobacco: Never Tobacco comments: Stopped smoking 12/2005 Vaping Use Vaping status: Never Used Substance Use Topics Alcohol use: Not Currently Drug use: No PHYSICAL EXAM BP 124/78 Pulse 76 Temp 36.5 C (97.7 F) (Temporal) Resp 16 Wt 60.8 kg (134 lb) SpO2 95% BMI 25.30 kg/m General Appearance: ill and tired appearing, in no acute distress, alert Eyes: conjunctiva pink and moist, no icterus, sclera white, non-injected Ears: external ears normal to inspection and palpation, left canal clear, Left tympanic membrane normal. 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 Erythema noted with whatis visible. Tenderness to lymph node below right ear Nose/sinus: Nares normal. Septum midline. Mucosa normal. No drainage., No sinus tenderness Neck: Thyroid normal size and symmetric without palpable nodules, Neck supple Lymph nodes: No cervical lymphadenopathy and No supraclavicular lymphadenopathy Lungs: Lungs clear to auscultation. No wheezing, rhonchi, rales. Heart: RRR without murmur, gallop, or rubs. No ectopy Health maintenance reviewed with patient: Depression Screening Never done Anxiety Screening Never done BP Controlled (<130/80) Never done Shingrix Vaccine(3 of 3) due on 11/14/2021 RSV Vaccine(1 - 1-dose 75+ series) Never done Covid-19 Vaccine( - 2023- season) due on 01/11/2024 Advance Directive Discussion due on 05/12/2024 Annual PCP Team Chronic Disease Visit due on 07/08/2025 Diabetes Screening due on 04/21/2027 DTaP,Tdap,Td Vaccine(2 - Td or Tdap) due on 09/04/2033 Bone Density Screening Completed Spirometry Completed Influenza Vaccine Completed Hepatitis C Screening Completed Pneumococcal Vaccine: 50+ Completed Mammogram Screening Discontinued Colorectal Cancer Screening Discontinued DATA REVIEWED: Most recent labs ASSESSMENT/PLAN: 1. Acute otitis media, unspecified otitis media type - ICD9: 382.9, ICD10: H66.90 (primary diagnosis) Surprising as she was on already on doxy so will switch to augmentin - Will begin treatment with as per antibiotic as written, see orders - Supportive care with plenty of fluids, rest, and analgesia prn. - Follow up in 3-5 days if symptoms persist or worsen. 2. Viral sinusitis - ICD9: 473.9, 079.99, ICD10: J32.9, B97.89 - Discussed viral etiology and rationale for treatment. - Symptomatic treatment with prn analgesia - Supportive care with fluids and rest - Supportive care with plenty of fluids, rest, and analgesia prn. - Follow up in 3-5 days if symptoms persist or worsen. 3. Pneumonia of right upper lobe due to infectious organism - ICD9: 486, ICD10: J18.9 This was resolving well but was exposed to what appears to be new virus resulting in otitis media If other symptoms worsen pt to go to ER over the weekend Follow up next week and we will see how she feels and clear her to go back to work. Wioll need follow up chest xray ordered. Prescription instructions reviewed with patient as applicable. Potential red flag symptoms discussed with the patient. Reviewed appropriate action plan to take if red flag symptoms occur. Patient agreeable to treatment plan. Dianna Ballard APRN.CNP documented in [facility]25 NoteHNO ID: [id number] Author: DIANNA BALLARD APRN.CNP Service: ? Author Type: Nurse Practitioner Type: Progress Notes Filed: 07/08/2024 14:39 Note Text: CC: Patient presents with: Recheck: Urgent Care follow up HPI Elizabeth Persaud is a 79 year old female who presents today for express care follow up. Was diagnosed with RUL pneumonia 3 days ago. Started with illness weeks ago but no improvement. Was never tested originally for flu or treated for anything. Did take home covid test which was negative. Finally went to express care cause she kept feeling worse, felt flushed, was feverish with temp of 101.6, and fatigued. Was started on doxycyline. Currently is starting to feel a little better and no longer flushed or feels fevered. Is taking tylenol for headaches. Has been wearing oxygen as needed at home for oxygen saturation less then 90%. Has not needed since yesterday before bed. Still with fatigue, generalized weakness, some shortness of breath, headaches, and body aches. Had a CT of chest already ordered for pulmonary nodules which was completed but not resulted yet. Denies current wheezing, cough, chest pressure, tachycardia, current edema, vomiting, diarrhea, or syncope. Will need [place] papers filled out for work missed. Missed starting the when she had a virtual appointment an had not been able to return. Starting to feel better but still to fatigued and weak to return yet. REVIEW OF SYSTEMS See HPI PAST MEDICAL HISTORY Diagnosis Date Anxiety Arthritis Atrial fibrillation (HCC) s/p ablation 07/2015 Backache, unspecified Moses's esophagus Basal cell carcinoma BPPV (benign paroxysmal positional vertigo) Cancer (HCC) Basal cell on forehead Carpal [...] TUBE ABDL/VAG APPR UNI/BI Tubal ligation NEUROPLASTY AND/TRANSPOS MEDIAN NRV CARPAL TUNNE 02/14/2012 Carpal tunnel [...] surgery with implants- Dr Jacob Aguilar at [facility] PAST SURGICAL HISTORY OF 07/27/2015 cryo ablation, cardiac PAST SURGICAL HISTORY OF cardiac ablation RPR UMBILICAL HRNA 5 YRS/> REDUCIBLE 07/17/2010 Hernia repair, umbilical >5yr [facility] Dr Manuel Hoover SHX COSMETIC SURGERY SKIN BIOPSY HX ALLERGIES Cardizem [Diltiazem Hcl], Codeine, Entex [Phenylephrine-Guaifenesin], Etodolac, Meloxicam, Naproxen, Tape [Adhesive Tape (Rosins)], Trazodone, and Zantac [Ranitidine Hcl] MEDICATIONS doxycycline (VIBRA-TABS) 100 mg tablet Take 1 tablet by mouth two times a day for 10 days. benzonatate (TESSALON PERLE) 100 mg capsule Take 1 capsule by mouth three times a day as needed for cough for up to 7 days. dofetilide (TIKOSYN) 125 mcg capsule 125 mcg two times a day. wtgfanszlyg-urxrkkzpd-ugkqvrie (TRELEGY ELLIPTA) 100-62.5-25 mcg inhalation powder Inhale 1 Puff as instructed once daily. sucralfate (CARAFATE) 100 mg/mL suspension Take 10 mL by mouth before meals and at bedtime. (560cc=2wks) nystatin (MYCOSTATIN) 100,000 unit/mL suspension Take 5 mL by mouth four times daily. 1tsp swish in mouth for several minutes, then swallow (or expectorate) 4 times daily until gone. diclofenac, EC, (VOLTAREN) 75 mg EC tablet Takes once daily PRN for acute pain/inflammation. Take with food. omeprazole (PRILOSEC) 40 mg capsule Take 1 capsule by mouth once daily. metoprolol succinate ER (TOPROL XL) 50 mg 24 hr tablet Take 1 tablet by mouth two t (more content not included)...[facility]02-27-2025 History of Present illness Narrative* Dianna Ballard APRN.[employer] - 07/08/2024 9:51 AM EST CC: Patient presents with: Recheck: Urgent Care follow up HPI Elizabeth Persaud is a 79 year old female who presents today for express care follow up. Was diagnosed with RUL pneumonia 3 days ago. Started with illness weeks ago but no improvement. Wasnever tested originally for flu or treated for anything. Did take home covid test which was negative. Finally went to express care cause she kept feeling worse, felt flushed, was feverish with temp of 101.6, and fatigued. Was started on doxycyline. Currently is starting to feel a little better and no longer flushed or feels fevered. Is taking tylenol for headaches. Has been wearing oxygen as needed at home for oxygen saturation less then 90%. Has not needed since yesterday before bed. Still with fatigue, generalized weakness, some shortness of breath, headaches, and body aches. Had a CT of chest already ordered for pulmonary nodules which was completed but not resulted yet. Denies current wheezing, cough, chest pressure, tachycardia, current edema, vomiting, diarrhea, or syncope. Will need FMLA papers filled out for work missed. Missed starting the when she had a virtual appointment an had not been able to return. Starting to feel better but still to fatigued and weak toreturn yet. REVIEW OF SYSTEMS See HPI PAST MEDICAL HISTORY Diagnosis Date Anxiety Arthritis Atrial fibrillation (HCC) s/p ablation 07/2015 Backache, unspecified Moses's esophagus Basal cell carcinoma BPPV (benign paroxysmal positional vertigo) Cancer (HCC) Basal cell on forehead Carpal [...] surgery with implants- Dr Jacob Aguilar at [facility] PAST SURGICAL HISTORY OF 07/27/2015 cryo ablation, cardiac PAST SURGICAL HISTORY OF cardiac ablation RPR UMBILICAL HRNA 5 YRS/> REDUCIBLE 07/17/2010 Hernia repair, umbilical >5yr [facility] Dr Manuel Hoover SHX COSMETIC SURGERY SKIN BIOPSY HX ALLERGIES Cardizem [Diltiazem Hcl], Codeine, Entex [Phenylephrine-Guaifenesin], Etodolac, Meloxicam, Naproxen, Tape [Adhesive Tape (Rosins)], Trazodone, and Zantac [Ranitidine Hcl] MEDICATIONS doxycycline (VIBRA-TABS) 100 mg tablet Take 1 tablet by mouth two times a day for 10 days. benzonatate (TESSALON PERLE) 100 mg capsule Take 1 capsule by mouth three times a day as needed forcough for up to 7 days. dofetilide (TIKOSYN) 125 mcg capsule 125 mcg two times a day. rnazehmiiif-eazvlpggx-dcqrrgmr (TRELEGY ELLIPTA) 100-62.5-25 mcg inhalation powder Inhale 1 Puff asinstructed once daily. sucralfate (CARAFATE) 100 mg/mL suspension Take 10 mL by mouth before meals and at bedtime. (560cc=2wks) nystatin (MYCOSTATIN) 100,000 unit/mL suspension Take 5 mL by mouth four times daily. 1tsp swish inmouth for several minutes, then swallow (or expectorate) 4 times daily until gone. diclofenac, EC, (VOLTAREN) 75 mg EC tablet Takes once daily PRN for acute pain/inflammation. Take with food. omeprazole (PRILOSEC) 40 mg capsule Take 1 capsule by mouth once daily. metoprolol succinate ER (TOPROL XL) 50 mg 24 hr tablet Take 1 tablet by mouth two times a day. fluticasone (FLONASE) 50 mcg/actuation nasal spray Use 2 Sprays in each nostril once daily. Rinse mouth after use. JARDIANCE 10 mg tablet Take 10 mg by mouth once daily. Ipratropium (ATROVENT) 17 mcg/actuation inhaler Inhale 2 Puffs as instructed every 6 hours as needed for wheezing/shortness of breath. furosemide (LASIX) 40 mg tablet Take 1 tablet by mouth twice daily. apixaban (ELIQUIS) 5 mg tab(s) Take by mouth twice daily. Bifidobacterium infantis (ALIGN) 10.5 mg (10 million cell) chew Take 1 tablet by mouth once daily. potassium chloride ER (K-DUR, KLOR-CON) 20 mEq tablet Take 1 tablet by mouth twice daily. (Patient not taking: Reported on 04/02/2024) melatonin 3 mg ODT Take 1 tablet by mouth daily at bedtime. MULTIVITAMIN WITH MINERALS (ONE-A-DAY 50 PLUS ORAL) Take by mouth. CALCIUM CARBONATE/VITAMIN D3 (VITAMIN D-3 ORAL) Take 1,000 mg by mouth five times daily. [id number]-[id number] ORAL Take by mouth. FAMILY HISTORY Problem Relation Age of Onset Hypertension Mother Stroke Mother Coronary Artery Disease Father other (wilsons disease) Brother other (VINCE'S DISEASE) Brother Liver dse, cirrhosis Social History Tobacco Use Smoking status: Former Current packs/day: 0.00 Average packs/day: 2.0 packs/day for 35.0 years (70.0 ttl pk-yrs) Types: Cigarettes Start date: 11/09/1970 Quit date: 11/09/2005 Years since quittin.6 Smokeless tobacco: Never Tobacco comments: Stopped smoking 12/2005 Vaping Use Vaping status: Never Used Substance Use Topics Alcohol use: Not Currently Drug use: No PHYSICAL EXAM BP 140/66 Pulse 80 Resp 16 Wt 60.3 kg (133 lb) SpO2 94% BMI 25.11 kg/m General Appearance: ill and tired appearing, in no acute distress, alert Eyes: conjunctiva pink and moist, no icterus, sclera white, non-injected Lungs: Lungs clear to auscultation. No wheezing, rhonchi, rales. Heart: RRR without murmur, gallop, or rubs. No ectopy Health maintenance reviewed with patient: Depression Screening Never done Anxiety Screening Never done BP Controlled (<130/80) Never done Shingrix Vaccine(3 of 3) due on 11/14/2021 RSV Vaccine(1 - 1-dose 75+ series) Never done Covid-19 Vaccine( season) due on 01/11/2024 Advance Directive Discussion due on 05/12/2024 Annual PCP Team Chronic Disease Visit due on 06/22/2025 Diabetes Screening due on 04/21/2027 DTaP,Tdap,Td Vaccine(2 - Td or Tdap) due on 09/04/2033 Bone Density Screening Completed Spirometry Completed Influenza Vaccine Completed Hepatitis C Screening Completed Pneumococcal Vaccine: 50+ Completed Mammogram Screening Discontinued Colorectal Cancer Screening Discontinued DATA REVIEWED: Most recent imaging ASSESSMENT/PLAN: 1. Pneumonia of right upper lobe due to infectious organism - ICD9: 486, ICD10: J18.9 Symptoms improving but still very fatigued and weak. Continue with PRN oxygen and current antibiotic. Will fill out FMLA papers once received F/u next week Go to ER for any worsening symptoms. Prescription instructions reviewed with patient as applicable. Potential red flag symptoms discussed with the patient. Reviewed appropriate action plan to take if red flag symptoms occur. Patient agreeable to treatment plan. Dianna Ballard APRN.CNP documented in this [facility]25 History of Present illness Narrative* Sunday Ellis RT(R) - 07/06/2024 11:40 AM EST Radiology Service Progress Note PATIENT NAME: Elizabeth Persaud DATE OF SERVICE: July 06, 2024 TIME: 3:02 PM PATIENT IDENTITY VERIFICATION COMPLETED USING TWO (2) IDENTIFIERS: Name and Date of confirmedby patient verbally. FALL SCREENING: Has the patient had 2 falls in the last year or 1 fall with injury or currently using an Ambulatory Assistive Device (Walker, Cane, Wheelchair, Crutches, etc.)? No PATIENT GENDER DATA: Assigned female at . status: : No status:NO. PATIENT RELEVANT IMPLANT DATA REVIEWED: Not Applicable PATIENT PRESENTS WITH AN IMPLANTABLE OR ATTACHED FINANCIAL ADMINISTRATOR: No RADIOLOGY DEPARTMENT: CT; Exam(s) Completed: Chest PERIPHERAL IV DATA: Not applicable SIGNED BY: RT Sasha(R) July 06, 2024 3:02 PM documented in this encounterKet[facility]02-25-2025 NoteHNO ID: [id number] Author: SUNDAY ELLIS RT(R) Service: ? Author Type: Resources Representative Type: Progress Notes Filed: 07/06/2024 15:02 Note Text: Radiology Service Progress Note PATIENT NAME: Elizabeth Persaud DATE OF SERVICE: July 06, 2024 TIME: 3:02 PM PATIENT IDENTITY VERIFICATION COMPLETED USING TWO (2) IDENTIFIERS: Name and Date of confirmed by patient verbally. FALL SCREENING: Has the patient had 2 falls in the last year or 1 fall with injury or currently using an Ambulatory Assistive Device (Walker, Cane, Wheelchair, Crutches, etc.)? No PATIENT GENDER DATA: Assigned female at . status: : No status: NO. PATIENT RELEVANT IMPLANT DATA REVIEWED: Not Applicable PATIENT PRESENTS WITH AN IMPLANTABLE OR ATTACHED FINANCIAL ADMINISTRATOR: No RADIOLOGY DEPARTMENT: CT; Exam(s) Completed: Chest PERIPHERAL IV DATA: Not applicable SIGNED BY: RT Sasha(R) July 06, 2024 3:02 [facility]02-24-2025 History of Present illness Narrative* Cassie Todd RT(Jamia) - 07/05/2024 3:50 PM EST Radiology Service Progress Note PATIENT NAME: Elizabeth Persaud DATE OF SERVICE: July 05, 2024 TIME: 3:42 PM PATIENT IDENTITY VERIFICATION COMPLETED USING TWO (2) IDENTIFIERS: Name and Date of confirmedby patient verbally. FALL SCREENING: Has the patient had 2 falls in the last year or 1 fall with injury or currently using an Ambulatory Assistive Device (Walker, Cane, Wheelchair, Crutches, etc.)? No PATIENT GENDER DATA: Assigned female at . status: : No status:NO. PATIENT RELEVANT IMPLANT DATA REVIEWED: Yes PATIENT PRESENTS WITH AN IMPLANTABLE OR ATTACHED FINANCIAL ADMINISTRATOR: No RADIOLOGY DEPARTMENT: General X-ray: Exam(s) Completed: Chest X-Ray PERIPHERAL IV DATA: Not applicable SIGNED BY: RT Raghu(R) July 05, 2024 3:42 PM documented in this encounterK[facility]02-24-2025 NoteHNO ID: [id number] Author: CASSIE TODD RT(R) Service: ? Author Type: Resources Representative Type: Progress Notes Filed: 07/05/2024 15:51 Note Text: Radiology Service Progress Note PATIENT NAME: Elizabeth Persaud DATE OF SERVICE: July 05, 2024 TIME: 3:42 PM PATIENT IDENTITY VERIFICATION COMPLETED USING TWO (2) IDENTIFIERS: Name and Date of confirmed by patient verbally. FALL SCREENING: Has the patient had 2 falls in the last year or 1 fall with injury or currently using an Ambulatory Assistive Device (Walker, Cane, Wheelchair, Crutches, etc.)? No PATIENT GENDER DATA: Assigned female at . status: : No status: NO. PATIENT RELEVANT IMPLANT DATA REVIEWED: Yes PATIENT PRESENTS WITH AN IMPLANTABLE OR ATTACHED FINANCIAL ADMINISTRATOR: No RADIOLOGY DEPARTMENT: General X-ray: Exam(s) Completed: Chest X-Ray PERIPHERAL IV DATA: Not applicable SIGNED BY: NATALYA Krishnamurthy) July 05, 2024 3:42 [facility]02-24-2025 NoteHNO ID: [id number] Author: NADIR PICKARD PA-C Service: ? Author Type: Physician Java Manager Type: Progress Notes Filed: 07/05/2024 16:25 Note Text: This note was created using [employer]. Subjective Elizabeth Persaud is a 79 year old female. Patient is a 79-year-old female who complains of fever, congestion and cough that she has been experiencing for the past 3 days. Patient states that she has a history of pneumonia and that her current symptoms are consistent with same. Patient also has a history of CHF as well as COPD. Patient is not on home oxygen. Patient reports that lung nodules have been noted on previous imaging studies and she is scheduled for CT scan chest tomorrow. Patient does have a 69-jyvz-vdmq history of tobacco use and stopped smoking in 2005. Review of Systems Constitutional: Positive for fever. HENT: Positive for congestion. Respiratory: Positive for cough. All other systems reviewed and are negative. Objective BP 146/70 Pulse 88 Temp 37.4 ?C (99.3 ?F) Resp 18 Wt 61.3 kg (135 lb 2.3 oz) SpO2 92% BMI 25.51 kg/m? Physical Exam Vitals and nursing note reviewed. Constitutional: Appearance: Normal appearance. She is normal weight. HENT: Head: Normocephalic and atraumatic. Right Ear: Tympanic membrane, ear canal and external ear normal. Left Ear: Tympanic membrane, ear canal and external ear normal. Nose: Nose normal. Mouth/Throat: Mouth: Mucous membranes are moist. Pharynx: Oropharynx is clear. Eyes: Extraocular Movements: Extraocular movements intact. Conjunctiva/sclera: Conjunctivae normal. Pupils: Pupils are equal, round, and reactive to light. Cardiovascular: Rate and Rhythm: Normal rate and regular rhythm. Pulses: Normal pulses. Heart sounds: Normal heart sounds. Pulmonary: Effort: Pulmonary effort is normal. Breath sounds: Normal breath sounds. Musculoskeletal: Cervical back: Normal range of motion and neck supple. Skin: General: Skin is warm and dry. Capillary Refill: Capillary refill takes less than 2 seconds. Neurological: General: No focal deficit present. Mental Status: She is alert and oriented to person, place, and time. Psychiatric: Mood and Affect: Mood normal. Behavior: Behavior normal. Thought Content: Thought content normal. Judgment: Judgment normal. Assessment and Plan Physical exam findings as noted above. Chest x-ray demonstrates questionable small hazy opacity overlying the right upper lung. Radiologist suggests follow-up, and as noted above the patient already has a CT scan chest with contrast scheduled for tomorrow by Dr. Laith Montes. Patient was provided with prescriptions for doxycycline 100 mg and Tessalon 100 mg and advised to follow-up with Dr. Montes as scheduled. Patient was, of course, instructed to report to an emergency department if she notes any acute worsening of her symptoms. Patient verbalizes excellent understanding of all instructions. CLINICAL IMPRESSION: RUL Pneumonia ASSESSMENT/PLAN: 1. Viral illness - ICD9: 079.99, ICD10: B34.9 (primary diagnosis) - XR CHEST 2V FRONTAL/LAT 2. Pneumonia of right upper lobe due to infectious organism - ICD9: 486, ICD10: J18.9 - DOXYCYCLINE HYCLATE 100 MG TABLET - BENZONATATE 100 MG CAPSULE Nadir RENEE [facility]ard[facility] History of Present illness Narrative* Nadir Pickard PA-C - 07/05/2024 3:37 PM EST This note was created using [employer] Euro[employer]. Subjective Elizabeth Persaud is a 79 year old female. Patient is a 79-year-old female who complains of fever, congestion and cough that she has been experiencing for the past 3 days. Patient states that she has a history of pneumonia and that her current symptoms are consistent with same. Patient also has a history of CHF as well as COPD. Patient is not on home oxygen. Patient reports that lung nodules have been noted on previous imaging studies andshe is scheduled for CT scan chest tomorrow. Patient does have a 56-uyxl-vprb history of tobacco use and stopped smoking in 2005. Review of Systems Constitutional: Positive for fever. HENT: Positive for congestion. Respiratory: Positive for cough. All other systems reviewed and are negative. Objective BP 146/70 Pulse 88 Temp 37.4 C (99.3 F) Resp 18 Wt 61.3 kg (135 lb 2.3 oz) SpO2 92% BMI25.51 kg/m Physical Exam Vitals and nursing note reviewed. Constitutional: Appearance: Normal appearance. She is normal weight. HENT: Head: Normocephalic and atraumatic. Right Ear: Tympanic membrane, ear canal and external ear normal. Left Ear: Tympanic membrane, ear canal and external ear normal. Nose: Nose normal. Mouth/Throat: Mouth: Mucous membranes are moist. Pharynx: Oropharynx is clear. Eyes: Extraocular Movements: Extraocular movements intact. Conjunctiva/sclera: Conjunctivae normal. Pupils: Pupils are equal, round, and reactive to light. Cardiovascular: Rate and Rhythm: Normal rate and regular rhythm. Pulses: Normal pulses. Heart sounds: Normal heart sounds. Pulmonary: Effort: Pulmonary effort is normal. Breath sounds: Normal breath sounds. Musculoskeletal: Cervical back: Normal range of motion and neck supple. Skin: General: Skin is warm and dry. Capillary Refill: Capillary refill takes less than 2 seconds. Neurological: General: No focal deficit present. Mental Status: She is alert and oriented to person, place, and time. Psychiatric: Mood and Affect: Mood normal. Behavior: Behavior normal. Thought Content: Thought content normal. Judgment: Judgment normal. Assessment and Plan Physical exam findings as noted above. Chest x-ray demonstrates questionable small hazy opacity overlying the right upper lung. Radiologist suggests follow- up, and as noted above the patient already has a CT scan chest with contrast scheduled for tomorrow by Dr. Laith Montes. Patient was provided with prescriptions for doxycycline 100 mg and Tessalon 100 mg and advised to follow- up with Dr. Montes as scheduled. Patient was, of course, instructed to report to an emergency department if she notes any acute worsening of her symptoms. Patient verbalizes excellent understanding of all instructions. CLINICAL IMPRESSION: RUL Pneumonia ASSESSMENT/PLAN: 1. Viral illness - ICD9: 079.99, ICD10: B34.9 (primary diagnosis) - XR CHEST 2V FRONTAL/LAT 2. Pneumonia of right upper lobe due to infectious organism - ICD9: 486, ICD10: J18.9 - DOXYCYCLINE HYCLATE 100 MG TABLET - BENZONATATE 100 MG CAPSULE Nadir Pickard PA-C documented [facility]25 NoteHNO ID: [id number] Author: FCO VIDALES PA-C Service: ? Author Type: Physician Java Manager Type: Progress Notes Filed: 06/23/2024 09:18 Note Text: VIRTUAL VISIT PROGRESS NOTE This is a virtual visit using [employer] Video Visit. It required patient-provider interaction for the medical decision making as documented below. I have communicated my name and active licensure. The patient's identity and physical location were verified at the time of this visit. Either the patient or their legal business development representative has been informed of the risks and benefits of -- and alternatives to -- treatment through a remote evaluation and consents to proceed with the evaluation remotely. SUBJECTIVE: This is a 79 year old that is here today for Complaint(s) of diarrhea x yesterday. Had an episode of vomiting this morning. + body aches. No associated abdominal or back pain. Notes cough, with mild burning sore throat. No difficulty swallowing. + QUINONEZ. Denies SOB, chest pain, vision changes. She had a flu shot this year. Last episode of diarrhea. Somewhat watery, no blood. Denies dizziness. Home Vitals: SpO2 94% HR 68 Temp 99.5 BP 119/74 HISTORY REVIEWED (electronic chart updated): PAST MEDICAL HISTORY Diagnosis Date Anxiety Arthritis Atrial fibrillation (HCC) s/p ablation 07/2015 Backache, unspecified Moses's esophagus Basal cell carcinoma BPPV (benign paroxysmal positional vertigo) Cancer (HCC) Basal cell on forehead Carpal [...] TUBE ABDL/VAG APPR UNI/BI Tubal ligation NEUROPLASTY AND/TRANSPOS MEDIAN NRV CARPAL TUNNE 02/14/2012 Carpal tunnel [...] surgery with implants- Dr Jacob Aguilar at [facility] PAST SURGICAL HISTORY OF 07/27/2015 cryo ablation, cardiac PAST SURGICAL HISTORY OF cardiac ablation RPR UMBILICAL HRNA 5 YRS/> REDUCIBLE 07/17/2010 Hernia repair, umbilical >5yr [facility] Dr Manuel Hoover SHX COSMETIC SURGERY SKIN BIOPSY HX FAMILY HISTORY Problem Relation Age of Onset Hypertension Mother Stroke Mother Coronary Artery Disease Father other (wilsons disease) Brother other (VINCE'S DISEASE) Brother Liver dse, cirrhosis Social History Tobacco Use Smoking status: Former Current packs/day: 0.00 Average packs/day: 2.0 packs/day for 35.0 years (70.0 ttl pk-yrs) Types: Cigarettes Start date: 11/09/1970 Quit date: 11/09/2005 Years since quittin.6 Smokeless tobacco: Never Tobacco comments: Stopped smoking 12/2005 Vaping Use Vaping status: Never Used Substance Use Topics Alcohol use: Not Currently Drug use: No Current Outpatient Medications Medication Sig oseltamivir (TAMIFLU) 75 mg capsule Take 1 capsule by mouth two times a day for 5 days. dofetilide (TIKOSYN) 125 mcg capsule 125 mcg two times a day. abjymjsykpj-qjzbakkhp-dotzpxkz (TRELEGY ELLIPTA) 100-62.5-25 mcg inhalation powder Inhale 1 Puff as instructed once daily. sucralfate (CARAFATE) 100 mg/mL suspension Take 10 mL by mouth before meals and at bedtime. (560cc=2wks) nystatin (MYCOSTATIN) 100,000 unit/mL suspension Take 5 mL by mouth four times daily. 1tsp swish in mouth for several minutes, then swallow (or expectorate) 4 times daily until gone. diclofenac, EC, (VOLTAREN) 75 mg EC tablet Takes once daily PRN for acute pain/inflammation. Take with food. omeprazole (PRILOSEC) 40 mg capsule Take 1 capsule by (more content not included)...[facility]02-11-2025 History of Present illness Narrative* Fco Vidales PA-C - 06/22/2024 1:59 PM EST VIRTUAL VISIT PROGRESS NOTE This is a virtual visit using curated.by Zoom Video Visit. It required patient- provider interaction for the medical decision making as documented below. I have communicated my name and active licensure. The patient's identity and physical location wereverified at the time of this visit. Either the patient or their legal business development representative has been informed of the risks and benefits of -- and alternatives to -- treatment through a remote evaluation andconsents to proceed with the evaluation remotely. SUBJECTIVE: This is a 79 year old that is here today for Complaint(s) of diarrhea x yesterday. Had an episode of vomiting this morning. + body aches. No associated abdominal or back pain. Notes cough, with mild burning sore throat. No difficulty swallowing. + QUINONEZ. Denies SOB, chest pain, vision changes. She had a flu shot this year. Last episode of diarrhea. Somewhat watery, no blood. Denies dizziness. Home Vitals: SpO2 94% HR 68 Temp 99.5 BP 119/74 HISTORY REVIEWED (electronic chart updated): PAST MEDICAL HISTORY Diagnosis Date Anxiety Arthritis Atrial fibrillation (HCC) s/p ablation 07/2015 Backache, unspecified Moses's esophagus Basal cell carcinoma BPPV (benign paroxysmal positional vertigo) Cancer (HCC) Basal cell on forehead Carpal [...] surgery with implants- Dr Jacob Aguilar at [facility] PAST SURGICAL HISTORY OF 07/27/2015 cryo ablation, cardiac PAST SURGICAL HISTORY OF cardiac ablation RPR UMBILICAL HRNA 5 YRS/> REDUCIBLE 07/17/2010 Hernia repair, umbilical >5yr [facility] Dr Manuel Hoover SHX COSMETIC SURGERY SKIN BIOPSY HX FAMILY HISTORY Problem Relation Age of Onset Hypertension Mother Stroke Mother Coronary Artery Disease Father other (wilsons disease) Brother other (VINCE'S DISEASE) Brother Liver dse, cirrhosis Social History Tobacco Use Smoking status: Former Current packs/day: 0.00 Average packs/day: 2.0 packs/day for 35.0 years (70.0 ttl pk-yrs) Types: Cigarettes Start date: 11/09/1970 Quit date: 11/09/2005 Years since quittin.6 Smokeless tobacco: Never Tobacco comments: Stopped smoking 12/2005 Vaping Use Vaping status: Never Used Substance Use Topics Alcohol use: Not Currently Drug use: No Current Outpatient Medications Medication Sig oseltamivir (TAMIFLU) 75 mg capsule Take 1 capsule by mouth two times a day for 5 days. dofetilide (TIKOSYN) 125 mcg capsule 125 mcg two times a day. nvdsllhxoht-vdelnrsqr-haojyfdi (TRELEGY ELLIPTA) 100-62.5-25 mcg inhalation powder Inhale 1 Puff asinstructed once daily. sucralfate (CARAFATE) 100 mg/mL suspension Take 10 mL by mouth before meals and at bedtime. (560cc=2wks) nystatin (MYCOSTATIN) 100,000 unit/mL suspension Take 5 mL by mouth four times daily. 1tsp swish inmouth for several minutes, then swallow (or expectorate) 4 times daily until gone. diclofenac, EC, (VOLTAREN) 75 mg EC tablet Takes once daily PRN for acute pain/inflammation. Take with food. omeprazole (PRILOSEC) 40 mg capsule Take 1 capsule by mouth once daily. metoprolol succinate ER (TOPROL XL) 50 mg 24 hr tablet Take 1 tablet by mouth two times a day. (Patient taking differently: Take 25 mg by mouth once daily.) fluticasone (FLONASE) 50 mcg/actuation nasal spray Use 2 Sprays in each nostril once daily. Rinse mouth after use. JARDIANCE 10 mg tablet Take 10 mg by mouth once daily. Ipratropium (ATROVENT) 17 mcg/actuation inhaler Inhale 2 Puffs as instructed every 6 hours as needed for wheezing/shortness of breath. furosemide (LASIX) 40 mg tablet Take 1 tablet by mouth twice daily. (Patient taking differently: Take 60 mg by mouth two times a day. Take another dose daily as needed for leg swelling) apixaban (ELIQUIS) 5 mg tab(s) Take by mouth twice daily. Bifidobacterium infantis (ALIGN) 10.5 mg (10 million cell) chew Take 1 tablet by mouth once daily. potassium chloride ER (K-DUR, KLOR-CON) 20 mEq tablet Take 1 tablet by mouth twice daily. (Patient not taking: Reported on 04/02/2024) melatonin 3 mg ODT Take 1 tablet by mouth daily at bedtime. MULTIVITAMIN WITH MINERALS (ONE-A-DAY 50 PLUS ORAL) Take by mouth. CALCIUM CARBONATE/VITAMIN D3 (VITAMIN D-3 ORAL) Take 1,000 mg by mouth five times daily. WQBWLOM-RQOTFSQRO-QNGV ORAL Take by mouth. No current facility-administered medications for this visit. ALLERGIES Allergen Reactions Cardizem [Diltiazem* Swelling Codeine Vomiting Ringing in Ears. Entex [Phenylephrin* Rash Etodolac Other: See Comments Heart palpitations Meloxicam Other: See Comments Heart palpitations Naproxen Swelling Possible allergy? Pt relates to naproxen Tape [Adhesive Tape* Rash Trazodone Other: See Comments rapid hear beat Zantac [Ranitidine * Rash, Swelling REVIEW OF SYSTEMS: All other ROS: negative As noted in HPI PHYSICAL EXAMINATION: VIDEO EXAM: (if completed, performed via video enabled technology) GENERAL: alert and appropriate, in no distress, well-hydrated, well nourished, and interactive. Lost video partway through visit. ASSESSMENT: (R05.1) Acute cough (primary encounter diagnosis) ASSESSMENT/PLAN: 1. Acute cough - ICD9: 786.2, ICD10: R05.1 R/o influenza/COVID Prescribe tamiflu since we are close to 48 hours. Can stop if flu negative. Discussed possible antiviral therapy if COVID positive Brand/BRAT diet, good hydration, OTC cough/cold meds as needed. Reviewed red flags and when to seek care sooner. F/u in 4-5 days if not improving, sooenr if any worsening symptoms. Reviewed red flags and when to seek care sooner. The patient indicates understanding of these issues and agrees with the plan. - COVID & INFLUENZA A/B & RSV PCR, ROUTINE Fco Vidales PA-C 06/23/2024 documented in [facility]25 Telephone encounter Note * Telephone Encounter - Laith Montes MD - 06/22/2024 10:37 AM EST Left voicemail message regarding outside images. CT chest vein mapping. Lungs that are in view showemphysema and a few 3 mm nodules. Unable to assess all lung jack. Will need full chest CT. [facility]02-11-2025 Miscellaneous Notes* Telephone Encounter - Laith Montes MD - 06/22/2024 10:37 AM EST Left voicemail message regarding outside images. CT chest vein mapping. Lungs that are in view showemphysema and a few 3 mm nodules. Unable to assess all lung jack. Will need full chest CT. documented in this encounterK[facility]02-[facility]-2025 History of Present illness Narrative* Laith Montes MD - 06/17/2024 10:00 AM EST Images from the original note were not included. . [facility] [place] Note Patient name: Elizabeth Persaud PCP: Minerva Shaver MD CC: Follow-up COPD HPI: Elizabeth Persaud 79 year old female former 70 pack year smoker, quitting in 2005 with PMH significant for scoliosis, HFpEF, HTN, GERD, AF, moderate COPD, nocturnal oxygen need. Current therapy with Trelegy Ellipta and as needed albuterol. Since REFUGIO, she had an ablation for her AF at [facility]. From a pulmonary standpoint she is doing better. Less dyspnea. She is compliant with use of her Trelegy. Noobvious side effects. Her last pulmonary function testing showed improvement in her airflow from moderate striction to mild obstruction with an FEV1 of 79% predicted. Review of her EMR shows a mapping cardiac CT noting several less than 3 mm pulmonary nodules. She has no previous CT of her chest as she did not qualify for lung cancer screening based on her smoking cessation greater than 15 years.Denies any other respiratory symptoms, chronic cough, sputum, wheezing, chest pain. No need for heralbuterol inhaler. DME: [employer] Nocturnal oxygen DATA: CT Cardiac Pulmonary Venogram 04/21/2024 78 y/o/f hx HFmrEF, HTN, 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 Mildly delayed EVITA contrast opacification. No LA/EVITA thrombus. STUDY QUALITY: Study quality is good. OTHER FINDINGS: Aortic calcifications. Small pulmonary nodules across both lobes <3 mm. PAST MEDICAL HISTORY Diagnosis Date Anxiety Arthritis Atrial fibrillation (HCC) s/p ablation 07/2015 Backache, unspecified Moses's esophagus Basal cell carcinoma BPPV (benign paroxysmal positional vertigo) Cancer (HCC) Basal cell on forehead Carpal [...] Swelling Possible allergy? Pt relates to naproxen Tape [Adhesive Tape* Rash Trazodone Other: See Comments rapid hear beat Zantac [Ranitidine * Rash, Swelling dofetilide (TIKOSYN) 125 mcg capsule 125 mcg two times a day. sucralfate (CARAFATE) 100 mg/mL suspension Take 10 mL by mouth before meals and at bedtime. (560cc=2wks) omeprazole (PRILOSEC) 40 mg capsule Take 1 capsule by mouth once daily. metoprolol succinate ER (TOPROL XL) 50 mg 24 hr tablet Take 1 tablet by mouth two times a day. (Patient taking differently: Take 25 mg by mouth once daily.) JARDIANCE 10 mg tablet Take 10 mg by mouth once daily. furosemide (LASIX) 40 mg tablet Take 1 tablet by mouth twice daily. (Patient taking differently: Take 60 mg by mouth two times a day. Take another dose daily as needed for leg swelling) apixaban (ELIQUIS) 5 mg tab(s) Take by mouth twice daily. eejefdggjbp-ogdhojlgs-wmabedyt (TRELEGY ELLIPTA) 100-62.5-25 mcg inhalation powder Inhale 1 Puff asinstructed once daily. nystatin (MYCOSTATIN) 100,000 unit/mL suspension Take 5 mL by mouth four times daily. 1tsp swish inmouth for several minutes, then swallow (or expectorate) 4 times daily until gone. diclofenac, EC, (VOLTAREN) 75 mg EC tablet Takes once daily PRN for acute pain/inflammation. Take with food. fluticasone (FLONASE) 50 mcg/actuation nasal spray Use 2 Sprays in each nostril once daily. Rinse mouth after use. Ipratropium (ATROVENT) 17 mcg/actuation inhaler Inhale 2 Puffs as instructed every 6 hours as needed for wheezing/shortness of breath. Bifidobacterium infantis (ALIGN) 10.5 mg (10 million cell) chew Take 1 tablet by mouth once daily. potassium chloride ER (K-DUR, KLOR-CON) 20 mEq tablet Take 1 tablet by mouth twice daily. (Patient not taking: Reported on 04/02/2024) melatonin 3 mg ODT Take 1 tablet by mouth daily at bedtime. MULTIVITAMIN WITH MINERALS (ONE-A-DAY 50 PLUS ORAL) Take by mouth. CALCIUM CARBONATE/VITAMIN D3 (VITAMIN D-3 ORAL) Take 1,000 mg by mouth five times daily. DJYMSVS-YUVHQQIIB-NITT ORAL Take by mouth. Social History Tobacco Use Smoking status: Former Current packs/day: 0.00 Average packs/day: 2.0 packs/day for 35.0 years (70.0 ttl pk-yrs) Types: Cigarettes Start date: 11/09/1970 Quit date: 11/09/2005 Years since quittin.6 Smokeless tobacco: Never Tobacco comments: Stopped smoking 12/2005 Vaping Use Vaping status: Never Used Substance Use Topics Alcohol use: Not Currently Drug use: No FAMILY HISTORY Problem Relation Age of Onset Hypertension Mother Stroke Mother Coronary Artery Disease Father other (wilsons disease) Brother other (VINCE'S DISEASE) Brother Liver dse, cirrhosis PAST SURGICAL [...] surgery with implants- Dr Jacob Aguilar at [facility] PAST SURGICAL HISTORY OF 07/27/2015 cryo ablation, cardiac PAST SURGICAL HISTORY OF cardiac ablation RPR UMBILICAL HRNA 5 YRS/> REDUCIBLE 07/17/2010 Hernia repair, umbilical >5yr [facility] Dr Manuel Hoover SHX COSMETIC SURGERY SKIN BIOPSY HX PMH, Social history, family history and surgical history reviewed and updated in EMR REVIEW OF SYSTEMS: CONSTITUTIONAL: No fevers, chills, nightsweats, unintended weight loss CARDIOVASCULAR: No chest pain, dyspnea, palpitations, orthopnea, edema. PULM: See HPI NEURO: No balance problems, peripheral weakness/paresthesias or numbness of concern. INTEGUMENTARY: No new skin changes PHYSICAL EXAMINATION: BP 138/70 Pulse 62 Resp 16 Wt 131 lb (59.4kg) SpO2 95% General Appearance: Obese female, NAD. Skin: Skin color, texture, turgor normal, no suspicious rashes or lesions. Head: Normocephalic, no masses, lesions, tenderness or abnormalities. Neck: No masses or adenopathy. Lungs: Not labored, normal to percussion, no wheezes or crackles. Heart: Regular rate and rhythm, soft systolic murmur right upper sternal border. Extremities: Mild nonpitting edema, no clubbing. Assessment/Plan: 1. GOLD Stage I COPD -Most recent pulmonary function test showed improvement in airflow obstruction -Symptoms well-controlled with current inhaled therapy. She will continue with Trelegy Ellipta and albuterol as needed 2. Lung nodules -Requested images from [facility] -Follow-up CT of the chest at 1 year 3. Former cigarette smoker -Former smoker with sequelae of COPD -Had not qualified for lung cancer screening based on duration of smoking cessation greater than 15years Laith Montes MD [facility] documented in this encounterK[facility]02-[facility]-2025 NoteHNO ID: [id number] Author: LAITH MONTES MD Service: ? Author Type: Physician Type: Progress Notes Filed: 06/17/2024 12:38 Note Text: . [facility] [place] Note Patient name: Elizabeth Persaud PCP: Minerva Shaver MD CC: Follow-up COPD HPI: Elizabeth Persaud 79 year old female former 70 pack year smoker, quitting in 2005 with PMH significant for scoliosis, HFpEF, HTN, GERD, AF, moderate COPD, nocturnal oxygen need. Current therapy with Trelegy Ellipta and as needed albuterol. Since REFUGIO, she had an ablation for her AF at [facility]. From a pulmonary standpoint she is doing better. Less dyspnea. She is compliant with use of her Trelegy. No obvious side effects. Her last pulmonary function testing showed improvement in her airflow from moderate striction to mild obstruction with an FEV1 of 79% predicted. Review of her EMR shows a mapping cardiac CT noting several less than 3 mm pulmonary nodules. She has no previous CT of her chest as she did not qualify for lung cancer screening based on her smoking cessation greater than 15 years. Denies any other respiratory symptoms, chronic cough, sputum, wheezing, chest pain. No need for her albuterol inhaler. DME: [employer] Nocturnal oxygen DATA: CT Cardiac Pulmonary Venogram 04/21/2024 78 y/o/f hx HFmrEF, HTN, 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 Mildly delayed EVITA contrast opacification. No LA/EVITA thrombus. STUDY QUALITY: Study quality is good. OTHER FINDINGS: Aortic calcifications. Small pulmonary nodules across both lobes <3 mm. PAST MEDICAL HISTORY Diagnosis Date Anxiety Arthritis Atrial fibrillation (HCC) s/p ablation 07/2015 Backache, unspecified Moses's esophagus Basal cell carcinoma BPPV (benign paroxysmal positional vertigo) Cancer (HCC) Basal cell on forehead Carpal [...] Swelling Possible allergy? Pt relates to naproxen Tape [Adhesive Tape* Rash Trazodone Other: See Comments rapid hear beat Zantac [Ranitidine * Rash, Swelling dofetilide (TIKOSYN) 125 mcg capsule 125 mcg two times a day. sucralfate (CARAFATE) 100 mg/mL suspension Take 10 mL by mouth before meals and at bedtime. (560cc=2wks) omeprazole (PRILOSEC) 40 mg capsule Take 1 capsule by mouth once daily. metoprolol succinate ER (TOPROL XL) 50 mg 24 hr tablet Take 1 tablet by mouth two times a day. (Patient taking differently: Take 25 mg by mouth once daily.) JARDIANCE 10 mg tablet Take 10 mg by mouth once daily. furosemide (LASIX) 40 mg tablet Take 1 tablet by mouth twice daily. (Patient taking differently: Take 60 mg by mouth two times a day. Take another dose daily as needed for leg swelling) apixaban (ELIQUIS) 5 mg tab(s) Take by mouth twice daily. xkjzsybepcd-icxijgwvj-ioyunsxr (TRELEGY ELLIPTA) 100-62.5-25 mcg inhalation powder Inhale 1 Puff as instructed once daily. nystatin (MYCOSTATIN) 100,000 unit/mL suspension Take 5 mL by mouth four times daily. 1tsp swish in mouth for several minutes, then swallow (or expectorate) 4 times daily until gone. diclofenac, EC, (VOLTAREN) 75 mg EC tablet Takes once daily PRN for acute pain/inflammation. Take with food. fluticasone (FLONASE) 50 mcg/actuation nasal spray Use 2 Sprays in each nostril once daily. Rinse mouth after use. Ipratropium (ATROVENT) 17 mcg/actuation inhaler Inhale 2 Puffs as instructed every 6 hours as needed for wheezing/shortness of breath. Bifidobacterium infantis (ALIGN) 10.5 mg (10 million cell) chew Take 1 tablet by mouth once daily. potassium chloride ER (K-DUR, KLOR-CON) 20 mEq tablet Take 1 tablet by mouth twice daily. (Patient not taking: Reported on 04/02/2024) melatonin 3 mg ODT Take 1 tablet by mouth daily at bedtime. MULTIVITAMIN WITH MINERALS (ONE-A-DAY 50 PLUS ORAL) Take by mouth. CALCIUM CARBONATE/VITAMIN D3 (VITAMIN D-3 ORAL) Take 1,000 mg by mouth five times daily. [id number]-QEOEOUETO-UPCW ORAL Take by mouth. Social History Tobacco Use Smoking status: Former Current packs/day: 0.00 Average packs/day: 2.0 packs/day for 35.0 years (70.0 ttl pk-yrs) Types: Cigarettes Start date: 11/09/1970 Quit date: 11/09/2005 Years since quittin.6 Smokeless tobacco: Never Tob (more content not included)...[facility]01-17-2025 Telephone encounter Note* Telephone Encounter - Minerva Shaver MD - 05/28/2024 5:59 AM EST Thank you , as a favor to me could you please ask the patient before it coming to me, jacqueline If someone has a title curator ask the patient who wpuld be managing inr for afib or valvular issues Marino, Minerva Shaver MD [facility]01-17-2025 Miscellaneous Notes* Telephone Encounter - Minerva Shaver MD - 05/28/2024 5:59 AM EST Thank you , as a favor to me could you please ask the patient before it coming to me, jacqueline If someone has a title curator ask the patient who wpuld be managing inr for afib or valvular issues Regards, Minerva Shaver MD * Telephone Encounter - Brit Burnham LPN - 05/27/2024 9:46 AM EST Called and spoke to patient, stated Anticoagulant is being managed by her National Business Director, Dr Ibarra. Patient states will be following up with Nagi Freeman FORMULATOR with [facility]. Brit Burnham LPN May 27, 2024 9:49 AM * Telephone Encounter - Minerva Shaver MD - 05/27/2024 7:54 AM EST I would be willing to start on medication, but because she is less than 60 kilogram I would like tostart her on 2.5 mgs 2 times a day Please reply to bridger hamm with above message and confirm if she would want me to send 90 daysat a time ? Confirm the pharmacy too Marino, Minerva Shaver MD * Telephone Encounter - Veronica Villar LPN - 05/26/2024 9:37 AM EST Kayden, Pharmacy with [employer] calling to let you know pt was in the [facility] at [facility] for A-Fib. thru 04-17-24. Per Kayden it is recommended that a pt be started on an Anticoagulation. She is checking to see if you would be on board to starting pt on Eliquis and follow pt. Youwould need to send prescription to pt's pharmacy. Please advise Kayden back to let you know what youare willing to do. Veronica Villar LPN [facility] Telephone encounter Note * Telephone Encounter - Brit Burnham LPN - 05/27/2024 9:46 AM EST Called and spoke to patient, stated Anticoagulant is being managed by her National Business Director, Dr Ibarra. Patient states will be following up with Nagi Freeman FORMULATOR with [facility]. Brit Burnham LPN May 27, 2024 9:49 AM [facility]01-16-2025 Telephone encounter Note* Telephone Encounter - Minerva Shaver MD - 05/27/2024 7:54 AM EST I would be willing to start on medication, but because she is less than 60 kilogram I would like tostart her on 2.5 mgs 2 times a day Please reply to bridger hamm with above message and confirm if she would want me to send 90 daysat a time ? Confirm the pharmacy too Regards, Minerva Shaver MD [facility]01-15-2025 Telephone encounter Note* Telephone Encounter - Veronica Villar LPN - 05/26/2024 9:37 AM EST Kaydne, Pharmacy with [employer] calling to let you know pt was in the [facility] at [facility] for A-Fib. thru 04-17-24. Per Kayden it is recommended that a pt be started on an Anticoagulation. She is checking to see if you would be on board to starting pt on Eliquis and follow pt. Youwould need to send prescription to pt's pharmacy. Please advise Kayden back to let you know what youare willing to do. Veronica Villar LPN [facility]12-18-2024 Evaluation note* Diagnosis Onset Date Resolution Status Admit Date 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 April 28, 3:53pm Chronic diastolic (congestiv e) heart failure chronic April 28 3:53pm Paroxysmal atrial fibrillation chron April 28, 2024 3:53pm Fatigue resolved April 28, 2024 3:53pm 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 July 27, 2024 11:00am Chronic diastolic (congestiv e) heart failure chronic July 27, 2024 11:00am Paroxysmal atrial fibrillation chron ic July 27, 2024 11:00am Degenerative disc disease, lumbar acute August 17, 2024 10:54am Lumbar radiculopathy acute Apri l 2024 10:54am Neck pain with history of cervical spinal surgery acute August 10:54am [facility] Work Phone: 1(913) 947-834612-16-2024 NoteHNO ID: [id number] Author: DYLAN ROSENBERG RN Service: ? Author Type: Registered Nurse Type: Progress Notes Filed: 04/26/2024 14:42 Note Text: Transitional Care Management (TCM) Follow-Up Note PCP Update / Actionable Items N/A - No specialty updates needed Patient Source: [facility] ([facility]) Discharge Outreach Summary: Spoke with patient, doing well at home. She did have an episode earlier where she went back into afib. She took her metoprolol and tikosyn and 45mins later episode had resolved. She did reach out to her cardiology office and is mostly followed by [facility] at this point, she denies any chest pain since discharge. She did ask for me to cancel her follow up with PCP as she is seeing [facility] providers for follow up. Patient discharged from [facility] Discharge date: 04/17/2024 Admitted for: afib Readmission Risk: n/a Value-Based Contract: Kathrin MANN Contact: Contact made with patient: Yes Spoke to: Patient Validation: Validated the person spoken to is actively involved in the patient's care. The patient was identified by Name and Date of . I'd like to get an update on how you're doing since our last phone call. Is now a good time to talk? Yes Symptoms: Are you feeling about the same, better or worse since leaving the hospital? Better Weekly Outreach: 1st Outreach Medications: Do you have any questions about taking your medications, including which medications you should be on, or do you need refills on your medications? No Patient Questions / Concerns: Do you have any questions related to your discharge? No Appointment / TCM Follow-Up: Have you had a follow-up visit with your Primary Care Provider or Specialist since you were discharged? No Do you need any assistance with scheduling or changing your follow-up appointments? Patient declines appointment Education N/A Targets addressed / completed during outreach: N/A Outreach Outcome: Continue TCM Outreach for remainder of 30 days Care Management partners utilized: N/A Dylan Rosenberg RN April 26, 2024 2:41 [facility]12-16-2024 NotePatient Outreach ([facility]) ELIZABETH PERSAUD ([id number]) 1945 [address] [facility] Date Time Provider Department 04/26/24 DYLAN ROSENBERG During your visit today, we recorded the following information about you: Dylan Rosenberg RN 04/26/2024 2:42 PM Signed Transitional Care Management (TCM) Follow-Up Note PCP Update / Actionable Items N/A - No specialty updates needed Patient Source: [facility] ([facility]) Discharge Outreach Summary: Spoke with patient, doing well at home. She did have an episode earlier where she went back into afib. She took her metoprolol and tikosyn and 45mins later episode had resolved. She did reach out to her cardiology office and is mostly followed by [facility] at this point, she denies any chest pain since discharge. She did ask for me to cancel her follow up with PCP as she is seeing [facility] providers for follow up. Patient discharged from [facility] Discharge date: 04/17/2024 Admitted for: afib Readmission Risk: n/a Value-Based Contract: Kathrin MANN Contact: Contact made with patient: Yes Spoke to: Patient Validation: Validated the person spoken to is actively involved in the patient's care. The patient was identified by Name and Date of . I'd like to get an update on how you're doing since our last phone call. Is now a good time to talk? Yes Symptoms: Are you feeling about the same, better or worse since leaving the hospital? Better Weekly Outreach: 1st Outreach Medications: Do you have any questions about taking your medications, including which medications you should be on, or do you need refills on your medications? No Patient Questions / Concerns: Do you have any questions related to your discharge? No Appointment / TCM Follow-Up: Have you had a follow-up visit with your Primary Care Provider or Specialist since you were discharged? No Do you need any assistance with scheduling or changing your follow-up appointments? Patient declines appointment Education N/A Targets addressed / completed during outreach: N/A Outreach Outcome: Continue TCM Outreach for remainder of 30 days Care Management partners utilized: N/A Dylan Rosenberg RN April 26, 2024 2:41 PM Allergies As of Date: 04/26/2024 Noted Allergy Reaction CARDIZEM (DILTIAZEM HCL) 01/18/2015 7 - Swelling CODEINE 01/21/2006 11 - Vomiting Comments: Ringing in Ears. ENTEX (PHENYLEPHRINE-GUAIFENESIN) 03/06/2007 2 - Rash ETODOLAC 07/06/2012 14 - Other: See Comments Comments: Heart palpitations MELOXICAM 05/25/2012 14 - Other: See Comments Comments: Heart palpitations NAPROXEN 01/29/2011 7 - Swelling Comments: Possible allergy? Pt relates to naproxen TAPE (ADHESIVE TAPE (ROSINS)) 03/31/2023 2 - Rash TRAZODONE 08/19/2014 14 - Other: See Comments Comments: rapid hear beat ZANTAC (RANITIDINE HCL) 05/29/2016 2 - Rash 7 - Swelling Date Reviewed: 04/02/2024 Reviewed by: Brit Burnham LPN - Fully Assessed Reason for Visit: Transition Of Care [4074] Cmt: Follow up day 9 Prescriptions as of 04/26/2024 - nystatin (MYCOSTATIN) 100,000 unit/mL suspension Take 5 mL by mouth four times daily. 1tsp swish in mouth for several minutes, then swallow (or expectorate) 4 times daily until gone. - diclofenac, EC, (VOLTAREN) 75 mg EC tablet Takes once daily PRN for acute pain/inflammation. Take with food. - omeprazole (PRILOSEC) 40 mg capsule Take 1 capsule by mouth once daily. - metoprolol succinate ER (TOPROL XL) 50 mg 24 hr tablet Take 1 tablet by mouth two times a day. - ourpudkfysv-ywrsftncc-jfpqghod (TRELEGY ELLIPTA) 100-62.5-25 mcg inhalation powder Inhale 1 Puff as instructed once daily. - flecainide (TAMBOCOR) 100 mg tablet Take 1 tablet by mouth two times a day. - fluticasone (FLONASE) 50 mcg/actuation nasal spray Use 2 Sprays in each nostril once daily. Rinse mouth after use. - JARDIANCE 10 mg tablet Take 10 mg by mouth once daily. - Ipratropium (ATROVENT) 17 mcg/actuation inhaler Inhale 2 Puffs as instructed every 6 hours as needed for wheezing/shortness of breath. - furosemide (LASIX) 40 mg tablet Take 1 tablet by mouth twice daily. - apixaban (ELIQUIS) 5 mg tab(s) Take by mouth twice daily. - Bifidobacterium infantis (ALIGN) 10.5 mg (10 million cell) chew Take 1 tablet by mouth once daily. - potassium chloride ER (K-DUR, KLOR-CON) 20 mEq tablet Take 1 tablet by mouth twice daily. - melatonin 3 mg ODT Take 1 tablet by mouth daily at bedtime. - MULTIVITAMIN WITH MINERALS (ONE-A-DAY 50 PLUS ORAL) Take by mouth. - CALCIUM CARBONATE/VITAMIN D3 (VITAMIN D-3 ORAL) Take 1,000 mg by mouth five times daily. - RJJIQKT-ZENNVBFCQ-XIDN ORAL Take by mouth. Problem List As Of Date 04/26/2024 Noted Resolved PERSISTENT INSOMNIA [G47.00] 07/16/2006 Moses's esophagus [K22.70] 07/16/2006 CALCULUS OF KIDNEY [N20.0] 07/16/2006 Irritable bowel sy (more content not included)...[facility] 04-22-2024 Nurse Note* Nursing Notes - Paulette Brizuela RN - 04/22/2024 3:14 PM EST 3:14 PM discharged to grand-daughter with belongings and AVS, voices understanding discharge instructions, PIV removed with cath tip intact, R groin dressing/site WNL. [facility]12-12-2024 Miscellaneous Notes* Nursing Notes - Paulette Brizuela RN - 04/22/2024 3:14 PM EST 3:14 PM discharged to grand-daughter with belongings and AVS, voices understanding discharge instructions, PIV removed with cath tip intact, R groin dressing/site WNL. * Nursing Notes - Brianda Rg RN - 04/22/2024 7:15 AM EST Patient takes home Eliquis * Nursing Notes - Brianda Rg RN - 04/22/2024 6:36 AM EST Patient presents to [facility] for A fib ablation with anesthesia. Procedure/recovery explained to patient. Verb understanding. Denies questions or concerns. documented in [facility] Hospital Discharge instructions* Discharge Instr - Activity* BRITANY Charles - 04/22/2024 7:27 AM EST Post Ablation Activity Your activity is restricted only as indicated by your physician. Please refer to education for ablation and other care recommendations. - No driving for 24 hours - Keep incision dry - Limit bending at the waist for 48 hours - May resume regular activity in 1-2 weeks unless otherwise notified - Return to work in 1 week - No tub baths or hot tub for 2 weeks or until groin site is healed - No lifting greater than 10-15 pounds for 1 week. Rest for 24 hours after you are home. You should have someone with you to help you the first night you are home. DO NOT drive for 24 hours. DO NOT make any important decisions for 24 hours. DO NOT work around the stove, machinery or power equipment for 24 hours. * Discharge Instr - Diet* BRITANY Charles - 04/22/2024 7:27 AM EST Diet: Your doctor has recommended that you follow these diet instructions at home. Refer to the patient education materials you received during your hospital stay. If you would like more nutrition counseling, ask your doctor about making an appointment with an outpatient dietitian. Heart Healthy Diet to promote heart health. Choose healthy fats and oils such as canola or olive oil. Limit high cholesterol foods. Avoid added salt and caffeine in your foods. Controlled Carbohydrate Diet This diet controls carbohydrate intake to help manage and maintain consistent blood glucose levels.Simple sugars are limited and carbohydrate intake is balanced throughout the day. Avoid adding saltto your food and use heart healthy fats such as canola or olive oil. * Discharge Instr - Notify* BRITANY Charles - 04/22/2024 7:28 AM EST Images from the original note were not included. NOTIFY PHYSICIAN BLEEDING/BRUISING -If severe bleeding, apply pressure -Increased bleeding from site -Increased bruising or hematoma Chest pain or shortness of breath Respiratory Changes Call your doctor or nurse if you have shortness of breath that gets worse -Cough that gets worse -Coughing up blood Stroke Symptoms Call 911 if you suddenly have any of these signs of a stroke: -Numbness or muscle weakness -Trouble swallowing -Problems talking -Dizziness or feeling unsteady -Severe headache -Confusion SYMPTOMS OF DVT DVT = Deep Vein Thrombus, or Blood Clot -any tender, swollen, or reddened areas from your groin to your heels. -numbness or tingling in groin or calf -the skin on your leg looks pale or blue or it feels cold to touch -any shortness of breath -chest pain -fever or chills NAUSEA: When you are nauseated, you may feel weak and sweaty and notice a lot of saliva in your mouth. Nausea often leads to vomiting. Most of the time you do not need to worry about nausea and vomiting, butthey can be signs of other illnesses. The doctor has checked you carefully, but problems can develop later. If you notice any problems ornew symptoms, get medical treatment right away. Follow-up care is a tamez part of your treatment and safety. Be sure to make and go to all appointments, and call your doctor if you are having problems. It's also a good idea to know your test resultsand keep a list of the medicines you take. How can you care for yourself at home? To prevent dehydration, drink plenty of fluids, enough so that your urine is light yellow or clear like water. Choose water and other caffeine-free clear liquids until you feel better. If you have kidney, heart, or liver disease and have to limit fluids, talk with your doctor before you increase the amount of fluids you drink. Rest in bed until you feel better. When you are able to eat, try clear soups, mild foods, and liquids until all symptoms are gone for 12 to 48 hours. Other good choices include dry toast, crackers, cooked cereal, and gelatin dessert, such as Jell-O. When should you call for help? Call 911 anytime you think you may need emergency care. For example, call if: You passed out (lost consciousness) Call your doctor now or seek immediate medical care if: You have symptoms of dehydration, such as: Dry eyes and a dry mouth Passing only a little dark urine Feeling thirstier than usual You have new or worsening belly pain You have a new or higher fever You vomit blood or what looks like coffee grounds Watch closely for changes in your health, and be sure to contact your doctor if: You have on going nausea and vomiting Your vomiting gets worse Your vomiting last longer than 2 days You are not getting better as expected Where can you learn more? Go to [email or web address].net/osumychart. * Discharge Instr - Wound Care* BRITANY Charles - 04/22/2024 7:28 AM EST Catheter site care You can remove your bandages the day after the procedure. You may shower 24 to 48 hours after the procedure, if your doctor okays it. Pat the incision dry. Do not soak the catheter site until it is healed. Don't take a bath for 1 week, or until your doctor tells you it is okay. Watch for bleeding from the site. A small amount of blood (up to the size of a quarter) on the bandage can be normal. If you are bleeding, lie down and press on the area for 15 minutes to try to make it stop. If the bleeding does not stop, call your doctor or seek immediate medical care. documented in this encounterUniversity [facility]12-12-2024 Nurse Note* Nursing Notes - Brianda Rg RN - 04/22/2024 7:15 AM EST Patient takes home Eliquis [facility]12-12-2024 Nurse Note* Nursing Notes - Brianda Rg RN - 04/22/2024 6:36 AM EST Patient presents to [facility] for A fib ablation with anesthesia. Procedure/recovery explained to patient. Verb understanding. Denies questions or concerns. [facility]12-12-2024 History and physical note* Aracelis Pichardo APRN-ANITHA - 04/22/2024 6:22 AM EST Chief Complaint Persistent AF/atypical AFL HPI Elizabeth Persaud is a 78 y.o. female with a history of persistent AF/atypical AFL s/p ablation (2015)and multiple DCCVs, HFpEF/NICM (EF 60%), TIA (07/2022), COPD, and former nicotine dependence. Atrialfibrillation since for about 10 years. Has taken Flecainide and Amiodarone in the past. Hospitalized earlier this month with A-fib w/RVR and underwent a drug load with Tikosyn and cardioversion x2. Odell whitlock presents today for a redo A-fib/flutter ablation. She presents in A-fib w/RVR. Reports went out of rhythm yesterday morning around 0400. Endorses palpitations, dizziness, and HAAS. Denies any misseddoses of Eliquis in the last 30 days. Denies recent infection or antibiotic use. Patient Active Problem List Diagnosis Persistent atrial fibrillation Moses's esophagus BCC (basal cell carcinoma of skin) Calculus of kidney Carpal tunnel syndrome, left CHF (congestive heart failure) Generalized arthritis Hypertension Moderate COPD (chronic obstructive pulmonary disease) Peripheral arterial disease Atypical atrial flutter Atrial fibrillation Past Medical History: Diagnosis Date Arrhythmia Essential hypertension, benign TIA (transient ischemic attack) No past surgical history on file. Medications Prior to Admission Medication Sig Dispense Refill Last Dose apixaban 5 MG tablet Take 1 tablet by mouth every 12 hours. 04/21/2024 at 2230 Ascorbic Acid (Vitamin C) 1000 MG tablet Take 1 tablet by mouth daily. 04/21/2024 Atorvastatin 20 MG tablet Take 1 tablet by mouth at bedtime. 30 tablet 3 04/21/2024 Bacillus Coagulans-Inulin (PROBIOTIC-PREBIOTIC PO) Take 1 capsule by mouth daily. Past Week Calcium Carb-Cholecalciferol (CALCIUM 500 + D PO) Take 1 tablet by mouth daily. 04/21/2024 CALCIUM MAGNESIUM ZINC PO Take 1 tablet by mouth daily. 04/21/2024 Dofetilide 125 MCG capsule Take 1 capsule by mouth every 12 hours. If 3 doses are missed, contact the prescribing title curator as soon as possible. 60 capsule 3 04/21/2024 at 0 Empagliflozin (Jardiance) 10 MG tablet Take 1 tablet by mouth daily. 04/18/2024 Fexofenadine HCl (ZINA ALLERGY PO) Take 180 mg by mouth daily. 04/21/2024 fluticasone 50 MCG/ACT Suspension nasal spray 2 sprays by Nasal route daily. 04/21/2024 cykgrfqwdha-omlmuosgu-Qwvuxu (Trelegy Ellipta) 100-62.5-25 MCG/ACT Aerosol Powder, breath activatedinhaler Inhale 1 puff daily. 04/21/2024 furOSEmide 20 MG tablet Take 3 tablets by mouth daily. 180 tablet 3 04/21/2024 Melatonin Gummies 5 MG Chew Tab Chew 2 tablets at bedtime. 04/21/2024 Metoprolol succinate 25 MG tablet XL Take 1 tablet by mouth daily. 30 tablet 3 04/21/2024 Multiple Vitamin (MULTI-DAY PO) Take 1 tablet by mouth daily. 04/21/2024 Nystatin 153055 UNIT/ML oral suspension Swish and swallow 5 mL 4 times daily. 04/21/[address] om[address] capsule Take 1 capsule by mouth daily. 04/21/2024 Spironolactone 25 MG tablet Take 1 tablet by mouth daily. 04/21/2024 acetaminophen (Tylenol 8 Hour Arthritis Pain) 650 MG Tab CR Take 1 tablet by mouth every 6 hours asneeded for Mild Pain. Ipratropium 17 MCG/ACT Aero Soln inhaler Inhale 2 puffs every 6 hours. max 12 inhalations/day Unknown Potassium Chloride ER 20 MEQ Tab CR tablet Take 1 tablet by mouth daily. Take with furosemide. May need to take twice a day for shortness of breath. More than a month Allergies Allergen Reactions Diltiazem Anaphylaxis *Adhesive Tape Rash Aspirin Dizzy/Vertigo Codeine Etodolac Hydrocodone-Acetaminophen Nausea and Vomiting Meloxicam Naproxen Swelling Patient reports head swelled up Phenylalanine Ranitidine Trazodone Social History Socioeconomic History Marital status: Single Tobacco Use Smoking status: Former Types: Cigarettes Start date: 2008 Vaping Use Vaping status: Never Used Substance and Sexual Activity Alcohol use: Not Currently Drug use: Never Social Determinants of Health Financial Resource Strain: Low Risk (04/13/2024) Overall Financial Resource Strain (CARDIA) Difficulty of Paying Living Expenses: Not hard at all Food Insecurity: No Food Insecurity (04/13/2024) Hunger Vital Sign Worried About Running Out of Food in the Last Year: Never true Ran Out of Food in the Last Year: Never true Transportation Needs: No Transportation Needs (04/13/2024) PRAPARE - Transportation Lack of Transportation (Medical): No Lack of Transportation (Non-Medical): No Physical Activity: Sufficiently Active (04/15/2022) Received from [facility] Exercise Vital Sign Days of Exercise per Week: 5 days Minutes of Exercise per Session: 150+ min Stress: No Stress Concern Present (04/15/2022) Received from [facility] [place] [facility] Occupational Health - Occupational Stress Questionnaire Feeling of Stress : Only a little Social Connections: Socially Isolated (04/15/2022) Received from [facility] Social Connection and Isolation Panel [NHANES] Frequency of Communication with Friends and Family: Three times a week Frequency of Social Gatherings with Friends and Family: Once a week Attends Je[employer] Services: Never Active Member of Clubs or Organizations: No Attends Club or Organization Meetings: Never Marital Status: Intimate Partner Violence: Not At Risk (04/13/2024) Humiliation, Afraid, Rape, and Kick questionnaire Fear of Current or Ex-Partner: No Emotionally Abused: No Physically Abused: No Sexually Abused: No Housing Stability: Low Risk (04/13/2024) Housing Stability Vital Sign Unable to Pay for Housing in the Last Year: No Number of Times Moved in the Last Year: 0 Homeless in the Last Year: No No family history on file. Referring MD: EDMUNDO VELIZ MD: Dr. Hernandez Anticoagulation: Shey Has the patient missed any doses of anticoagulation. No When was the last dose taken. 04/22/2024 at 0730 [id number] Vasc score: 7( age x2, female gender, CHF, HTN, & TIA) Previous antiarrythmic medications: Currently on Tikosyn Reason stopped: n/a Previous cardioversions?: Yes Previous ablations?: Yes Device: None Last eval: 04/16/2024 Prior Cardiac testing: CTPV 04/21/2024 FINAL IMPRESSION 78 y/o/f hx HFmrEF, HTN, 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 Mildly delayed EVITA contrast opacification. No LA/EVITA thrombus. STUDY QUALITY: Study quality is good. OTHER FINDINGS: Aortic calcifications. Small pulmonary nodules across both lobes <3 mm. PULMONARY VEIN LEFT ATRIAL APPENDAGE: No Thrombus LEFT SIDE MEASUREMENTS -------- COMMON DIMENSIONS: 2.6 cm COMMON DIMENSIONS (2): 1.7 cm RIGHT SIDE MEASUREMENTS -------- UPPER DIMENSIONS: 1.9 cm UPPER DIMENSIONS (2): 1.6 cm LOWER DIMENSIONS: 1.7 cm LOWER DIMENSIONS (2): 1.4 cm SCAN INFO Results for orders placed during the hospital encounter of 04/12/24 ECHOCARDIOGRAM 04/14/2024 (Final) Interpretation Summary Normal left ventricular size with mild global LV dysfunction. EF difficult to quantify due to variable R-R intervals (in atrial fibrillation). EF visually estimated at 45%. Normal right ventricular size with mild to moderate RV dysfunction. Biatrial enlargement. There is mild aortic, mitral, and tricuspid regurgitation. Review of System Constitutional: Negative for fever, weight loss, weight gain and malaise/fatigue. Skin: Negative. HEENT: Negative. Cardiovascular: Negative for leg swelling. Positive for palpitations, chest pain, dyspnea, orthopnea, claudication, edema and PND. Negative for lightheadedness or syncope. Respiratory: Negative for cough. Is not experiencing shortness of breath currently. Gastrointestinal: Negative for abdominal pain, nausea, vomiting, diarrhea, melena, and constipation. Endocrine: Negative for polyuria, polydipsia, heat or cold intolerance. Genitourinary: Negative for frequency or burning with urination. Past history of BPH or difficult catheterization? Denies. Neurological: Negative for dizziness and headaches. Psychiatric: Negative for depression, nervous/anxious and substance abuse. Telemetry/EKG: AF HR 130 bpm BP 148/71 Pulse 128 Temp 97.4 F (36.3 C) (Oral) Resp 12 Ht 1.549 m (5' 1) Wt 58.5 kg (129 lb) SpO2 98% BMI 24.37 kg/m Smoking Status Former Body mass index is 24.37 kg/m . Physical Exam General appearance - alert, LOC x 3, well appearing, and in no distress Neck - supple, no significant adenopathy, carotids upstroke normal bilaterally without bruits. Chest - lungs clear to auscultation Heart - irregularly irregular, S1 and S2 normal, no murmurs, clicks, gallops or rubs, normal bilateral carotid upstroke without bruits, no JVD Extremities - peripheral pulses normal, no pedal edema, no clubbing or cyanosis Skin - normal coloration and turgor, no rashes, no suspicious skin lesions noted Lab Results Component Value Date SODIUM 143 04/21/2024 POTASSIUM 5.0 04/21/2024 CHLORIDE 104 04/21/2024 CO2 29 04/21/2024 BUN 19 04/21/2024 CREATSERUM 0.93 04/21/2024 GLUCOSE 95 04/17/2024 Lab Results Component Value Date WBC 9.35 04/21/2024 HGB 15.1 04/21/2024 HCT 45.4 (H) 04/21/2024 PLATELET 275 04/21/2024 MCV 92.1 04/21/2024 Assessment and Plan Persistent AF/AFL - Ok to proceed with Redo A-fib/Flutter Farapulse w/CARTO w/anesthesia -NPO since midnight -Lab results reviewed -CTPV results reviewed [facility]12-12-2024 History and physical note* Aracelis Pichardo, ALUMNI RELATIONS COORDINATOR-BOILERMAKER SHIP - 04/22/2024 6:22 AM EST Chief Complaint Persistent AF/atypical AFL HPI Elizabeth Persaud is a 78 y.o. female with a history of persistent AF/atypical AFL s/p ablation (2015)and multiple DCCVs, HFpEF/NICM (EF 60%), TIA (07/2022), COPD, and former nicotine dependence. Atrialfibrillation since for about 10 years. Has taken Flecainide and Amiodarone in the past. Hospitalized earlier this month with A-fib w/RVR and underwent a drug load with Tikosyn and cardioversion x2. Odell whitlock presents today for a redo A-fib/flutter ablation. She presents in A-fib w/RVR. Reports went out of rhythm yesterday morning around 0400. Endorses palpitations, dizziness, and HAAS. Denies any misseddoses of Eliquis in the last 30 days. Denies recent infection or antibiotic use. Patient Active Problem List Diagnosis Persistent atrial fibrillation Moses's esophagus BCC (basal cell carcinoma of skin) Calculus of kidney Carpal tunnel syndrome, left CHF (congestive heart failure) Generalized arthritis Hypertension Moderate COPD (chronic obstructive pulmonary disease) Peripheral arterial disease Atypical atrial flutter Atrial fibrillation Past Medical History: Diagnosis Date Arrhythmia Essential hypertension, benign TIA (transient ischemic attack) No past surgical history on file. Medications Prior to Admission Medication Sig Dispense Refill Last Dose apixaban 5 MG tablet Take 1 tablet by mouth every 12 hours. 04/21/2024 at 2230 Ascorbic Acid (Vitamin C) 1000 MG tablet Take 1 tablet by mouth daily. 04/21/2024 Atorvastatin 20 MG tablet Take 1 tablet by mouth at bedtime. 30 tablet 3 04/21/2024 Bacillus Coagulans-Inulin (PROBIOTIC-PREBIOTIC PO) Take 1 capsule by mouth daily. Past Week Calcium Carb-Cholecalciferol (CALCIUM 500 + D PO) Take 1 tablet by mouth daily. 04/21/2024 CALCIUM MAGNESIUM ZINC PO Take 1 tablet by mouth daily. 04/21/2024 Dofetilide 125 MCG capsule Take 1 capsule by mouth every 12 hours. If 3 doses are missed, contact the prescribing title curator as soon as possible. 60 capsule 3 04/21/2024 at 2230 Empagliflozin (Jardiance) 10 MG tablet Take 1 tablet by mouth daily. 04/18/2024 Fexofenadine HCl (ZINA ALLERGY PO) Take 180 mg by mouth daily. 04/21/2024 fluticasone 50 MCG/ACT Suspension nasal spray 2 sprays by Nasal route daily. 04/21/2024 txashdhmagn-bqnoapzey-Zylqgi (Trelegy Ellipta) 100-62.5-25 MCG/ACT Aerosol Powder, breath activatedinhaler Inhale 1 puff daily. 04/21/2024 furOSEmide 20 MG tablet Take 3 tablets by mouth daily. 180 tablet 3 04/21/2024 Melatonin Gummies 5 MG Chew Tab Chew 2 tablets at bedtime. 04/21/2024 Metoprolol succinate 25 MG tablet XL Take 1 tablet by mouth daily. 30 tablet 3 04/21/2024 Multiple Vitamin (MULTI-DAY PO) Take 1 tablet by mouth daily. 04/21/2024 Nystatin [id number] UNIT/ML oral suspension Swish and swallow 5 mL 4 times daily. 04/21/[address] omep[address] capsule Take 1 capsule by mouth daily. 04/21/2024 Spironolactone 25 MG tablet Take 1 tablet by mouth daily. 04/21/2024 acetaminophen (Tylenol 8 Hour Arthritis Pain) 650 MG Tab CR Take 1 tablet by mouth every 6 hours asneeded for Mild Pain. Ipratropium 17 MCG/ACT Aero Soln inhaler Inhale 2 puffs every 6 hours. max 12 inhalations/day Unknown Potassium Chloride ER 20 MEQ Tab CR tablet Take 1 tablet by mouth daily. Take with furosemide. May need to take twice a day for shortness of breath. More than a month Allergies Allergen Reactions Diltiazem Anaphylaxis *Adhesive Tape Rash Aspirin Dizzy/Vertigo Codeine Etodolac Hydrocodone-Acetaminophen Nausea and Vomiting Meloxicam Naproxen Swelling Patient reports head swelled up Phenylalanine Ranitidine Trazodone Social History Socioeconomic History Marital status: Single Tobacco Use Smoking status: Former Types: Cigarettes Start date: 2008 Vaping Use Vaping status: Never Used Substance and Sexual Activity Alcohol use: Not Currently Drug use: Never Social Determinants of Health Financial Resource Strain: Low Risk (04/13/2024) Overall Financial Resource Strain (CARDIA) Difficulty of Paying Living Expenses: Not hard at all Food Insecurity: No Food Insecurity (04/13/2024) Hunger Vital Sign Worried About Running Out of Food in the Last Year: Never true Ran Out of Food in the Last Year: Never true Transportation Needs: No Transportation Needs (04/13/2024) PRAPARE - Transportation Lack of Transportation (Medical): No Lack of Transportation (Non-Medical): No Physical Activity: Sufficiently Active (04/15/2022) Received from [facility] Exercise Vital Sign Days of Exercise per Week: 5 days Minutes of Exercise per Session: 150+ min Stress: No Stress Concern Present (04/15/2022) Received from [facility] [place] of Occupational Health - Occupational Stress Questionnaire Feeling of Stress : Only a little Social Connections: Socially Isolated (04/15/2022) Received from [facility] Social Connection and Isolation Panel [NHANES] Frequency of Communication with Friends and Family: Three times a week Frequency of Social Gatherings with Friends and Family: Once a week Attends Je[employer] Services: Never Active Member of Clubs or Organizations: No Attends Club or Organization Meetings: Never Marital Status: Intimate Partner Violence: Not At Risk (04/13/2024) Humiliation, Afraid, Rape, and Kick questionnaire Fear of Current or Ex-Partner: No Emotionally Abused: No Physically Abused: No Sexually Abused: No Housing Stability: Low Risk (04/13/2024) Housing Stability Vital Sign Unable to Pay for Housing in the Last Year: No Number of Times Moved in the Last Year: 0 Homeless in the Last Year: No No family history on file. Referring MD: PCP Minerva VELIZ MD: Dr. Hernandez Anticoagulation: Eliquis Has the patient missed any doses of anticoagulation. No When was the last dose taken. 04/22/2024 at 0730 [id number]- Vasc score: 7( age x2, female gender, CHF, HTN, & TIA) Previous antiarrythmic medications: Currently on Tikosyn Reason stopped: n/a Previous cardioversions?: Yes Previous ablations?: Yes Device: None Last eval: 04/16/2024 Prior Cardiac testing: CTPV 04/21/2024 FINAL IMPRESSION 78 y/o/f hx HFmrEF, HTN, 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 Mildly delayed EVITA contrast opacification. No LA/EVITA thrombus. STUDY QUALITY: Study quality is good. OTHER FINDINGS: Aortic calcifications. Small pulmonary nodules across both lobes <3 mm. PULMONARY VEIN LEFT ATRIAL APPENDAGE: No Thrombus LEFT SIDE MEASUREMENTS -------- COMMON DIMENSIONS: 2.6 cm COMMON DIMENSIONS (2): 1.7 cm RIGHT SIDE MEASUREMENTS -------- UPPER DIMENSIONS: 1.9 cm UPPER DIMENSIONS (2): 1.6 cm LOWER DIMENSIONS: 1.7 cm LOWER DIMENSIONS (2): 1.4 cm SCAN INFO Results for orders placed during the hospital encounter of 04/12/24 ECHOCARDIOGRAM 04/14/2024 (Final) Interpretation Summary Normal left ventricular size with mild global LV dysfunction. EF difficult to quantify due to variable R-R intervals (in atrial fibrillation). EF visually estimated at 45%. Normal right ventricular size with mild to moderate RV dysfunction. Biatrial enlargement. There is mild aortic, mitral, and tricuspid regurgitation. Review of System Constitutional: Negative for fever, weight loss, weight gain and malaise/fatigue. Skin: Negative. HEENT: Negative. Cardiovascular: Negative for leg swelling. Positive for palpitations, chest pain, dyspnea, orthopnea, claudication, edema and PND. Negative for lightheadedness or syncope. Respiratory: Negative for cough. Is not experiencing shortness of breath currently. Gastrointestinal: Negative for abdominal pain, nausea, vomiting, diarrhea, melena, and constipation. Endocrine: Negative for polyuria, polydipsia, heat or cold intolerance. Genitourinary: Negative for frequency or burning with urination. Past history of BPH or difficult catheterization? Denies. Neurological: Negative for dizziness and headaches. Psychiatric: Negative for depression, nervous/anxious and substance abuse. Telemetry/EKG: AF HR 130 bpm BP 148/71 Pulse 128 Temp 97.4 F (36.3 C) (Oral) Resp 12 Ht 1.549 m (5' 1) Wt 58.5 kg (129 lb) SpO2 98% BMI 24.37 kg/m Smoking Status Former Body mass index is 24.37 kg/m . Physical Exam General appearance - alert, LOC x 3, well appearing, and in no distress Neck - supple, no significant adenopathy, carotids upstroke normal bilaterally without bruits. Chest - lungs clear to auscultation Heart - irregularly irregular, S1 and S2 normal, no murmurs, clicks, gallops or rubs, normal bilateral carotid upstroke without bruits, no JVD Extremities - peripheral pulses normal, no pedal edema, no clubbing or cyanosis Skin - normal coloration and turgor, no rashes, no suspicious skin lesions noted Lab Results Component Value Date SODIUM 143 04/21/2024 POTASSIUM 5.0 04/21/2024 CHLORIDE 104 04/21/2024 CO2 29 04/21/2024 BUN 19 04/21/2024 CREATSERUM 0.93 04/21/2024 GLUCOSE 95 04/17/2024 Lab Results Component Value Date WBC 9.35 04/21/2024 HGB 15.1 04/21/2024 HCT 45.4 (H) 04/21/2024 PLATELET 275 04/21/2024 MCV 92.1 04/21/2024 Assessment and Plan Persistent AF/AFL - Ok to proceed with Redo A-fib/Flutter Farapulse w/CARTO w/anesthesia -NPO since midnight -Lab results reviewed -CTPV results reviewed documented [facility] this encounter[facility] Evaluation note * Diagnosis Onset Date Resolution Status Admit Date 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 April 19 8:51am Chronic diastolic (congestive) heart failure chronic Decem 2023 8:51am Paroxysmal atrial fibrillation chronic April 19 8:51am Fatigue resolved April 19, 2024 8:51am 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 April 28, 024 3:53pm Chronic diastolic (congestive) heart failure chronic Decem 2023 3:53pm Paroxysmal atrial fibrillation chronic April 28, 024 3:53pm Fatigue resolved April 28, 2024 3:53pm 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 July 27, 2024 11:00am Chronic diastolic (congestive) heart failure chronic July 27, 2024 11:00am Paroxysmal atrial fibrillation chronic July 27, 2024 11:00am [facility] Work Phone: [phone]) 711-777212-07-2024 History of Present illness Narrative* Katia Kunz - 04/17/2024 3:25 PM EST Images from the original note were not included. [facility] ([facility]) Note: Bedside Delivery Documentation The following prescription(s) were tubed to the tube number 170, confirmed with Nurse Roz Stokes . Katia Kunz [facility] ([place]) [phone] [facility] [phone] [facility] Bedside Delivery [phone] [facility] [phone] [facility] Bedside Delivery [phone] [place] [phone] [facility] [phone] [place] [phone] [place] [phone] * Alexia Bedoya, ALUMNI RELATIONS COORDINATOR-BOILERMAKER SHIP - 04/16/2024 3:34 PM EST Electrophysiology Consult SIGN OFF Elizabeth Persaud is a 78 y.o. 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 for worsening SOB and palpitations. She was found to be in AF with RVR. She has previously tried AAD therapy of Flecainide and Amiodarone. Tikosyn load and DCCV recommended. DCCV completed on 04/13, however, went back into AF with RVR on 04/14. She is now s/p successful DCCV after 4th dose of Tikosyn. Patient tolerated medication well. There was slight QT/QTc prolongation after fifth dose of Tikosyn 125mcg which resolved after 6th dose. She has AF ablation scheduled for 04/22. Thank you for allowing us to participate in the care of Elizabeth Persaud. Our consult team will sign off today, 04/16/24. For our full impression and recommendations, please see our most recent consult/ progress note. Regarding follow up, please note the following: Physical exam on day of discharge BP 118/58 (BP Location: Right arm, BP Position: Sitting) Pulse 57 Temp 97.7 F (36.5 C) (Oral) Resp 18 Ht 1.549 m (5' 0.98) Wt 59.3 kg (130 lb 12.8 oz) SpO2 94% BMI 24.73 kg/m SmokingStatus Former Constitutional: patient is awake, alert and in no distress today with a pleasant affect. Chest: lungs clear to auscultation, breath sounds equal and symmetric, no rhonchi, rales or wheezes Cardiovascular: Normal carotid pulses, the JVP is not elevated, regular rate and rhythm; S1 normal,S2 normal, and there are no murmurs, rub or gallops appreciated Extremities: There are no cords or pain on palpation. Pedal edema is none Neurological: Patient is alert and oriented to person, place and time. Speech clear. Skin: No cyanosis. Nails show no clubbing. The patient denied chest pain, dyspnea, edema, lightheadedness, palpitations and site pain. Tolerated ambulation without difficulty. Telemetry: SB, HR: 57, QTc: 486 Follow Up Appointments Scheduled AF ablation on 04/22/2024 EP FORMULATOR follow up scheduled on 08/11/2024 with Angelica Gilliam AAD rx Clinic scheduled on 11/02/2024 Follow Up Testing No additional testing is required at the follow up visit. Medication Changes Continue Tikosyn 125 mcg BID Continue Eliquis If you have any further questions regarding the care of this patient, please do not hesitate to reach out to our team. BRITANY Guajardo 04/16/24 3:34 PM * Shelly Noyola PA-C - 04/16/2024 11:56 AM EST Heart Failure 2/Advanced Heart Failure Progress Note Provider: Shelly Noyola PA-C IDENTIFYING INFORMATION PATIENT: Elizabeth Persaud, 1945, [id number] LOS: 4 Code Status: Full Code Daily Plan: Plan of Care for Today: - Successful repeat DCCV yesterday - Transition to po Lasix 60mg daily - Decreased Toprol XL to 25mg BID - Continue Tikosyn - Continue Eliquis Dispo - Discharge tomorrow Subjective/Interval Note Overnight Issues: No acute overnight event Admission weight: 129lbs Current weight: Weight: 59.3 kg (130 lb 12.8 oz) Diet: DIET HEART HEALTHY - 4 GM SODIUM Fluid Restriction 2000mL (1000mL Nursing, 1000mL Nutrition) Telemetry personally reviewed: Sinus ria DVT Prophylaxis: Heparin gtt Activity: Cardiac rehab and As Tolerated Hospital Course: Elizabeth Persaud is a 78 y.o. 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. Patient reports symptoms began to worsen since being taken off her flecainide by EP 3 weeks ago. She notes her SOB is worse with exertion and states, I can feel my heart beat and vibrate through my chest. Additionally endorses worsening orthopnea (sleeps with wedge pillow), cough, ~6lb weight gain, and PND. Patient also notes she recently started using her home oxygen and has not used it several years. Reports occasional chest pain, but states it is relieved when she takes her omeprazole. Perpatient, her outpatient title curator increased her PO lasix dose to 60mg BID a few weeks ago and started her on aldactone. Due to worsening symptoms, she decided to seek care at [facility]. Work-up revealed trops 8, BNP 394, EKG showed AF with RVR. Treated with two doses of IV metoprolol 5mg, Toprol XL 60mg, IV lasix 60mg x1 and transferred to [facility] for further evaluation. Upon arrival to floor, patient is in rate controlled AF with HR in 110s, asymptomatic. She reports she has been complaint with eliquis and denies any missed dosages. Denies lightheadedness, dizziness, and syncopal episodes. Patient was recently seen by [facility] 03/08/24 for evaluation and management of AF/atypical atrial flutter. Recommended patient would benefit from repeat EPS and ablation for AF/AFL as outpatient with tikosyn load following the ablation to maintain SR. In the meantime, her toprol XL was increased to 50mg BID and she was instructed to stop taking her flecainide. She was scheduled to have an ablationon 04/22/24 with CTPV the day prior. 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 Since that time, she was managed with AC, DCCVs and an attempted cryoablation. Patient can tell when she is in SR or AF. The predominant symptoms are palpitations and SOB. Has tried amio in the past, but was discontinued d/t worsened HAAS. Upon arrival to floor, patient is in rate controlled AF with HR in 110s, asymptomatic. She reports she has been complaint with eliquis and denies any missed dosages. Plan - Consulted EP, DCCV on 04/13 failed, repeat DCCV on 04/15 - Continue Tikosyn - Continue Eliquis - Decreased Toprol XL to 25 mg BID / post DCCV bradycardia - Plan for OP ablation on 04/22 [id number] Score for Atrial Fibrillation Stroke Risk Age in Years: 75+ Sex: Female CHF History: Yes Hypertension History: Yes Stroke/TIA/Thromboembolism History: Yes Vascular Disease History: No Diabetes History: No [id number] Score: 7 Acute on Chronic diastolic heart failure (HFpEF) / non-ischemic cardiomyopathy / Likely tachy-mediated NT-proBNP elevated at 4.6K, physical exam significant for JVD to mid neck. Treated with IV lasix 60mg x1 prior to transfer. Symptomatic HF with LVEF 60% NYHA functional class III, ACC/AHA stage C Lab Results Component Value Date NTERMINALPRO 4,593 (H) 04/13/2024 Diuretics: PO lasix 60mg daily SGLT2: Jardiance 10mg daily --> farxiga while inpatient MRA: Aldactone 25mg daily ARNI or ARB: none Other HTN agent: Toprol XL 25mg BID Strict I/O Daily weight Heart Healthy diet 4 gm sodium with 2 liter fluid restriction HTN - See meds above BP Readings from Last 3 Encounters: 04/16/24 114/55 03/08/24 (!) 150/100 Hyperlipidemia - Start Lipitor 20mg daily this admission Lab Results Component Value Date CHOLESTEROL 212 (H) 04/13/2024 TRIG 84 04/13/2024 HDL 67 04/13/2024 LDLCALC 128 (H) 04/13/2024 GALINA on CKD Stage III (I=GFR>90, II=60-89, III=30-59, IV=15-29, V<15) Baseline Cr 0.8-1, Cr elevated to 1.5 on 04/15 2/ cardiorenal. She skipped diuretic for last 2 days Lab Results Component Value Date CREATSERUM 0.97 04/16/2024 CREATSERUM 1.47 (H) 04/15/2024 CREATSERUM 1.08 04/14/2024 Lab Results Component Value Date GFR 61 04/16/2024 GFR 37 (L) 04/15/2024 GFR 53 (L) 04/14/2024 Estimated Creatinine Clearance: 41 mL/min (by C-G formula based on SCr of 0.97 mg/dL). 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 Brain MRI showed no ischemic stroke. 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 Evaluated by Neurology, recommended to continue Eliquis as well as monitor her blood pressure and cholesterol. Of note, she does have residual numbness and decreased taste to her tongue. - Continue Eliquis - Not currently on statin, plan to start this admission given high ASCVD score of 24.9% History of BPPV Requiring Kan maneuvers in the past and meclizine with some relief. History of scoliosis and cervical spinal stenosis s/p fusion Patient reports diclofenac is the only pain med that provided relief. Educated patient on risks of using NSAID with CKD and HF. - PT/OT - Consider palliative consult for pain management Acute respiratory insufficiency, resolved Pt reports she recently started using her home oxygen and has not used it several years. Required supplemental O2 at OSH. O2 Sat (%): 98 % (04/13 401) O2 Device: room air (04/12 2315) COPD, mild Follows with pulmonary at [facility]. - Continue inhaler therapies Former Nicotine Dependence - Quit in 2005, 70 pack year smoker Leukocytosis of unknown origin (resolved) Afebrile, non-toxic appearing upon admission. Likely due to A-fib with RVR - Trend with daily CBCs with diff Lab Results Component Value Date WBC 8.61 04/16/2024 WBC 9.18 04/15/2024 Anemia of Chronic Disease Secondary to HF and CKD - Consider PO iron after DCCV Lab Results Component Value Date HGB 12.9 04/16/2024 HGB 13.5 04/15/2024 HGB 13.0 04/14/2024 Lab Results Component Value Date IRON 75 04/13/2024 FERRITIN 113.0 04/13/2024 Lab Results Component Value Date TRANSFERRIN 338 04/13/2024 Lab Results Component Value Date TIBC 423 04/13/2024 Lab Results Component Value Date IRONSATURAT 18 (L) 04/13/2024 Pre-Diabetes Mellitus Type 2 A1c on admission 6. On home Farxiga will resume once EP procedure is done Recent Labs 04/14/24 0422 04/15/24 0016 04/16/24 0338 GLUCOSE 110* 111* 104* Lab Results Component Value Date HGBA1C 6.0 (H) 04/13/2024 Complexity. Multi-disciplinary decision making was completed with representatives from Heart Failure Cardiology, LVAD coordinators, Psychology (Behavioral Cardiology), ADRIÁN's, nursing and PharmDs. Objective: Temp: [97.4 F (36.3 C)-98.2 F (36.8 C)] 98.2 F (36.8 C) Pulse (Heart Rate): [50-136] 50 Resp Rate: [14-18] 16 BP: (98-128)/(55-95) 114/55 O2 Sat (%): [94 %-100 %] 97 % Weight: [59.3 kg (130 lb 12.8 oz)] 59.3 kg (130 lb 12.8 oz) Body mass index is 24.73 kg/m . Physical Exam Constitutional: She appears chronically ill. Neck: No JVD (up to midneck) present. Cardiovascular: Regular rhythm, S1 normal and S2 normal. Bradycardia present. Pulses: Radial pulses are 2+ on the right side and 2+ on the left side. Warm and dry Pulmonary/Chest: She has no wheezes. She has no rales. Abdominal: Soft. She exhibits no distension. Musculoskeletal: General: No edema. Cervical back: Normal range of motion. Neurological: She is alert and oriented to person, place, and time. Skin: Skin is warm and dry. Patient Lines/Drains/Airways Status Active Lines, Drains, Airways, & Wound Overview Name Placement date Placement time Site Days Peripheral IV Line - Single Lumen 04/14/24 1107 pink forearm, posterior, left 20 gauge 04/14/24 1107 -- 2 Data Review: Recent Labs 04/14/24 0422 04/15/24 0016 04/16/24 0338 WBC 8.66 9.18 8.61 HGB 13.0 13.5 12.9 HCT 39.9 41.1 38.9 PLATELET 255 265 254 SODIUM 140 140 142 POTASSIUM 4.3 4.4 4.1 CHLORIDE 98 101 101 CO2 33* 28 32* BUN 32* 32* 29* CREATSERUM 1.08 1.47* 0.97 Lab Results Component Value Date NTERMINALPRO 4,593 (H) 04/13/2024 No results for input(s): ALKPHOS, AST, ALT, ALBUMIN, INR in the last 72 hours. Results for orders placed in visit on 12/31/22 ECHOCARDIOGRAM (OUTSIDE) (Final) apixaban 5 mg Oral Q12H Atorvastatin 20 mg Oral QHS bcahubxgci-kivzyujdivpjto-Kckkquvvny 2 puff Inhalation Daily dapagliflozin 10 mg Oral Daily Dofetilide 125 mcg Oral Q12HNS fexofenadine 60 mg Oral Daily fluticasone 2 spray Nasal Daily furOSEmide 60 mg Oral Daily hydrocortisone 1 Application Topical BID Metoprolol succinate 25 mg Oral Q12H Multi-Vitamins 1 tablet Oral Daily Pantoprazole 40 mg Oral Daily Spironolactone 25 mg Oral Daily Discussed with team on rounds. This plan will be discussed with Dr. Toña Persaud MD, the attending president celebrity acquistion. DISCHARGE PLANNING: Dispo/Debility -Skilled therapy is anticipated upon discharge to home Follow Up Appointments: Heart Failure FORMULATOR Hospital Follow Up Appt within 7-10 days of discharge: TBD Please Ensure Follow Up Labs / Testing are scheduled: TBD Shelly Noyola PA-C HF2/Advanced Heart Failure Phone: [phone] Associated attestation - Toña Persaud MD - 04/16/2024 2:39 PM EST Attending Physician Note I saw and evaluated the patient today with the advanced practice provider on heart failure rounds. I provided a substantive portion of the care for this patient. I personally performed all aspected of the medical decision making for this encounter. We discussed the symptoms and exam findings, results of testing and therapeutic plan. I have reviewed and verified this documentation including the history, physical examination, and medical decisions as outlined in the progress note, and it accurately reflects our care. Mrs. Persaud is a 78 yo F with a past medical history of persistent atrial fibrillation as well as prior typical atrial flutter s/p ablation and multiple cardioversions as well as HFpEF, TIA, and COPDwho presented with atrial fibrillation with RVR with worsening dyspnea. AF and HDS today. DCCV yesterday and remains in sinus with bradycardia (HR 50s). Qtc 500 msec [id number] dose. Labs stable. #Persistent Atrial Fibrillation with RVR: EP following. S/p DCCV x2. Continue tikosyn 250 mcg BID. Qtc 500 msecs. Decrease metoprolol succinate to 25 mg BID. Continue home DOAC. Plan for outpatient ablation in mid April (04/22). #Acute on Chronic Heart Failure: Likely provoked by atrial fibrillation. Patient with historically preserved EF with now mildly reduced EF on TTE (45%). Likely tachy-mediated. On spironolactone, SGLT-2 inhibitor, and beta karson at home. Restart oral lasix 60 mg daily. Toña Persaud Computer Processing Scheduler Cardiovascular Medicine Heart Failure and Transplant Medicine [facility] [id number] * Shelly Noyola PA-C - 04/15/2024 2:33 PM EST Heart Failure 2/Advanced Heart Failure Progress Note Provider: Shelly Noyola PA-C IDENTIFYING INFORMATION PATIENT: Elizabeth Persaud, 1945, [id number] LOS: 3 Code Status: Full Code Daily Plan: Plan of Care for Today: - Plan for repeat DCCV today - IV lasix 60mg X1 - Continue Toprol XL 75mg BID, consider lowering dose after DCCV - Continue Tikosyn - Resume Farxiga - Continue Eliquis Subjective/Interval Note Overnight Issues: Patient c/o SOB and wheezing Admission weight: 129lbs Current weight: Weight: 59.3 kg (130 lb 12.8 oz) (standing wt) Diet: DIET NPO with meds Telemetry personally reviewed: A-fib with RVR DVT Prophylaxis: Heparin gtt Activity: Cardiac rehab and As Tolerated Hospital Course: Elizabeth Persaud is a 78 y.o. 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. Patient reports symptoms began to worsen since being taken off her flecainide by EP 3 weeks ago. She notes her SOB is worse with exertion and states, I can feel my heart beat and vibrate through my chest. Additionally endorses worsening orthopnea (sleeps with wedge pillow), cough, ~6lb weight gain, and PND. Patient also notes she recently started using her home oxygen and has not used it several years. Reports occasional chest pain, but states it is relieved when she takes her omeprazole. Perpatient, her outpatient title curator increased her PO lasix dose to 60mg BID a few weeks ago and started her on aldactone. Due to worsening symptoms, she decided to seek care at [facility]. Work-up revealed trops 8, BNP 394, EKG showed AF with RVR. Treated with two doses of IV metoprolol 5mg, Toprol XL 60mg, IV lasix 60mg x1 and transferred to [facility] for further evaluation. Upon arrival to floor, patient is in rate controlled AF with HR in 110s, asymptomatic. She reports she has been complaint with eliquis and denies any missed dosages. Denies lightheadedness, dizziness, and syncopal episodes. Patient was recently seen by [facility] EP 03/08/24 for evaluation and management of AF/atypical atrial flutter. Recommended patient would benefit from repeat EPS and ablation for AF/AFL as outpatient with tikosyn load following the ablation to maintain SR. In the meantime, her toprol XL was increased to 50mg BID and she was instructed to stop taking her flecainide. She was scheduled to have an ablationon 04/22/24 with CTPV the day prior. 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 Since that time, she was managed with AC, DCCVs and an attempted cryoablation. Patient can tell when she is in SR or AF. The predominant symptoms are palpitations and SOB. Has tried amio in the past, but was discontinued d/t worsened HAAS. Upon arrival to floor, patient is in rate controlled AF with HR in 110s, asymptomatic. She reports she has been complaint with eliquis and denies any missed dosages. Plan - Consulted EP, DCCV on 04/13 failed, repeat DCCV on 04/15 - Continue Tikosyn - Continue Eliquis - Increased Toprol XL to 75 mg BID for rate control - Plan for OP ablation on 04/22 [id number] Score for Atrial Fibrillation Stroke Risk Age in Years: 75+ Sex: Female CHF History: Yes Hypertension History: Yes Stroke/TIA/Thromboembolism History: Yes Vascular Disease History: No Diabetes History: No [id number] Score: 7 Acute on Chronic diastolic heart failure (HFpEF) / non-ischemic cardiomyopathy / Likely tachy-mediated NT-proBNP elevated at 4.6K, physical exam significant for JVD to mid neck. Treated with IV lasix 60mg x1 prior to transfer. Symptomatic HF with LVEF 60% NYHA functional class III, ACC/AHA stage C Lab Results Component Value Date NTERMINALPRO 4,593 (H) 04/13/2024 Diuretics: PO lasix 60mg daily----> IV lasix 60mgX1 SGLT2: Jardiance 10mg daily --> farxiga while inpatient MRA: Aldactone 25mg daily ARNI or ARB: none Other HTN agent: Toprol XL 75mg BID Strict I/O Daily weight Heart Healthy diet 4 gm sodium with 2 liter fluid restriction HTN - See meds above BP Readings from Last 3 Encounters: 04/14/24 125/79 03/08/24 (!) 150/100 Hyperlipidemia - Start Lipitor 20mg daily this admission Lab Results Component Value Date CHOLESTEROL 212 (H) 04/13/2024 TRIG 84 04/13/2024 HDL 67 04/13/2024 LDLCALC 128 (H) 04/13/2024 GALINA on CKD Stage III (I=GFR>90, II=60-89, III=30-59, IV=15-29, V<15) Baseline Cr 0.8-1, Cr elevated to 1.5 on 04/15 2/2 cardiorenal. She skipped diuretic for last 2 days Lab Results Component Value Date CREATSERUM 1.47 (H) 04/15/2024 CREATSERUM 1.08 04/14/2024 CREATSERUM 1.00 04/13/2024 Lab Results Component Value Date GFR 37 (L) 04/15/2024 GFR 53 (L) 04/14/2024 GFR 58 (L) 04/13/2024 Estimated Creatinine Clearance: 27 mL/min (A) (by C-G formula based on SCr of 1.47 mg/dL (H)). 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 Brain MRI showed no ischemic stroke. 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 Evaluated by Neurology, recommended to continue Eliquis as well as monitor her blood pressure and cholesterol. Of note, she does have residual numbness and decreased taste to her tongue. - Continue Eliquis - Not currently on statin, plan to start this admission given high ASCVD score of 24.9% History of BPPV Requiring Kan maneuvers in the past and meclizine with some relief. History of scoliosis and cervical spinal stenosis s/p fusion Patient reports diclofenac is the only pain med that provided relief. Educated patient on risks of using NSAID with CKD and HF. - PT/OT - Consider palliative consult for pain management Acute respiratory insufficiency, resolved Pt reports she recently started using her home oxygen and has not used it several years. Required supplemental O2 at OSH. O2 Sat (%): 98 % (04/13 401) O2 Device: room air (04/12 2315) COPD, mild Follows with pulmonary at [facility]. - Continue inhaler therapies Former Nicotine Dependence - Quit in 2005, 70 pack year smoker Leukocytosis of unknown origin (resolved) Afebrile, non-toxic appearing upon admission. Likely due to A-fib with RVR - Trend with daily CBCs with diff Lab Results Component Value Date WBC 9.18 04/15/2024 WBC 8.66 04/14/2024 Anemia of Chronic Disease Secondary to HF and CKD - Consider PO iron after DCCV Lab Results Component Value Date HGB 13.5 04/15/2024 HGB 13.0 04/14/2024 HGB 13.9 04/13/2024 Lab Results Component Value Date IRON 75 04/13/2024 FERRITIN 113.0 04/13/2024 Lab Results Component Value Date TRANSFERRIN 338 04/13/2024 Lab Results Component Value Date TIBC 423 04/13/2024 Lab Results Component Value Date IRONSATURAT 18 (L) 04/13/2024 Pre-Diabetes Mellitus Type 2 A1c on admission 6. On home Farxiga will resume once EP procedure is done Recent Labs 04/13/24 0005 04/14/24 0422 04/15/24 0016 GLUCOSE 108* 110* 111* Lab Results Component Value Date HGBA1C 6.0 (H) 04/13/2024 Complexity. Multi-disciplinary decision making was completed with representatives from Heart Failure Cardiology, LVAD coordinators, Psychology (Behavioral Cardiology), ADRIÁN's, nursing and PharmDs. Objective: Temp: [97.5 F (36.4 C)-98.6 F (37 C)] 98.6 F (37 C) Pulse (Heart Rate): [112-144] 141 Resp Rate: [16-18] 18 BP: (112-127)/(70-84) 125/79 O2 Sat (%): [94 %-96 %] 95 % Weight: [59.3 kg (130 lb 12.8 oz)] 59.3 kg (130 lb 12.8 oz) Body mass index is 24.73 kg/m . Physical Exam Constitutional: She appears chronically ill. Neck: JVD (up to midneck) present. Cardiovascular: S1 normal and S2 normal. An irregularly irregular rhythm present. Tachycardia present. Pulses: Radial pulses are 2+ on the right side and 2+ on the left side. Warm and wet Pulmonary/Chest: She has no rales. She has diffuse wheezes. Abdominal: She exhibits distension. Musculoskeletal: General: No edema. Cervical back: Normal range of motion. Neurological: She is alert and oriented to person, place, and time. Skin: Skin is warm and dry. Patient Lines/Drains/Airways Status Active Lines, Drains, Airways, & Wound Overview Name Placement date Placement time Site Days Peripheral IV Line - Single Lumen 04/14/24 1107 pink forearm, posterior, left 20 gauge 04/14/24 1107 -- less than 1 Data Review: Recent Labs 04/13/24 0005 04/13/24 0712 04/14/24 0422 04/15/24 0016 WBC 11.67* 8.98 8.66 9.18 HGB 14.7 13.9 13.0 13.5 HCT 43.9 42.1 39.9 41.1 PLATELET 301 290 255 265 SODIUM 141 -- 140 140 POTASSIUM 3.6 -- 4.3 4.4 CHLORIDE 97* -- 98 101 CO2 27 -- 33* 28 BUN 24 -- 32* 32* CREATSERUM 1.00 -- 1.08 1.47* NTERMINALPRO 4,593* -- -- -- Lab Results Component Value Date NTERMINALPRO 4,593 (H) 04/13/2024 Recent Labs 04/13/24 0005 ALKPHOS 91 AST 35 ALT 28 ALBUMIN 4.4 Results for orders placed in visit on 12/31/22 ECHOCARDIOGRAM (OUTSIDE) (Final) apixaban 5 mg Oral Q12H Atorvastatin 20 mg Oral QHS oldwajzkdm-vlfthfzuofgssp-Kbvsmaqqpe 2 puff Inhalation Daily [Held by provider] dapagliflozin 10 mg Oral Daily Dofetilide 125 mcg Oral Q12HNS fexofenadine 60 mg Oral Daily fluticasone 2 spray Nasal Daily [Held by provider] furOSEmide 60 mg Oral BID Metoprolol succinate 75 mg Oral BID Multi-Vitamins 1 tablet Oral Daily Pantoprazole 40 mg Oral Daily Spironolactone 25 mg Oral Daily Discussed with team on rounds. This plan will be discussed with Dr. Toña Persaud MD, the attending president celebrity acquistion. DISCHARGE PLANNING: Dispo/Debility -Skilled therapy is anticipated upon discharge to home Follow Up Appointments: Heart Failure FORMULATOR Hospital Follow Up Appt within 7-10 days of discharge: TBD Please Ensure Follow Up Labs / Testing are scheduled: TBD Shelly Noyola PA-C HF2/Advanced Heart Failure Phone: [phone] Associated attestation - Jean Marie Copeland MD - 04/15/2024 9:08 PM EST Attending Physician Note I saw and personally examined the patient today with the advanced practice provider on heart failure rounds. We discussed the symptoms and exam findings, results of testing and therapeutic plan. I agree with the history, physical examination, and medical decisions as outlined in the progress note, and I have edited the note in its essential parts to reflect my plan for this patient. Mrs. Persaud is a 78 yo F with a past medical history of persistent atrial fibrillation as well as prior typical atrial flutter s/p ablation and multiple cardioversions as well as HFpEF, TIA, and COPDwho presented with atrial fibrillation with RVR with worsening dyspnea. Successful DCCV today. #Persistent Atrial Fibrillation with RVR: EP following. S/p DCCV today (successful) after partial dofetilide load. Continue load and Qtc monitoring. Continue home DOAC. Continue metoprolol. Plan for outpatient ablation in mid April (04/22). #Acute on Chronic Heart Failure: Likely provoked by atrial fibrillation. Patient with historically preserved EF with now mildly reduced EF on TTE (45%). Likely tachy-mediated. On spironolactone, SGLT-2 inhibitor, and beta karson at home. Restart SGLT2i here. IV furosemide 60 mg x1 today. Jean Marie Copeland MD Advanced Heart Failure and Cardiac Transplant Program [facility] * Aracelis Pichardo APRN-[employer]ER [employer] - 04/14/2024 2:46 PM EST ELECTROPHYSIOLOGY CONSULT PROGRESS NOTE Electrophysiology consulted for the management of atrial fibrillation. HPI I saw Ms. Elizabeth Persaud in follow-up on 04/14/2024. She is a 78 y.o. female with a history of persistent AF / atypical AFL s/p ablation (2015) and multiple DCCVs (most recently 12/2023), HFpEF/NICM (EF 60%), TIA (07/2022), COPD, and former nicotine dependence, who presented on 04/12/2024 as a [facility] with worsening SOB and palpitations. ASSESSMENT AND PLAN Persistent atrial fibrillation -s/p cryoballoon ablation about 10 years ago -s/p multiple cardioversion procedures -has taken Flecainide and Amiodarone in the past -99.9% AF burden in May per Holter monitoring -scheduled for AF ablation with Dr. Hernandez on 04/22/2024 -presented in AF w/RVR. EP consulted, recommendations: DCCV and Tikosyn drug load -underwent a successful cardioversion on 04/13/2024, however, went back into A- fib w/RVR this morning around 0500 -Continue Toprol-XL for rate control -Chads-Vasc score 7, continue Eliquis for stroke risk reduction 2. Tikosyn initiation for arrhythmia suppression -continuous cardiac monitoring for 5 doses at BID dosing -Doses 2 &3 today. Plan for cardioversion tomorrow -Serial ECGs 2-3 hours post-each dose for QT/QTc measurements -Daily labs: monitor K+ and Mg ~ keep K+>4 and Mg>2; replace electrolytes per protocol -EP FORMULATOR follow-up in 3-4 months -Referral to antiarrhythmic clinic INTERVAL HISTORY/REVIEW OF SYSTEMS Over the last day, she had no acute events. Denies any side effects with Tikosyn Review of System Cardiovascular: Positive for palpitations/rapid heart rate Respiratory: Negative for dyspnea, cough, or wheezing Neurologic: Negative for dizziness or LH PHYSICAL EXAM BP 121/70 (BP Location: Right arm, BP Position: Sitting) Pulse 140 Temp 97.5 F (36.4 C) (Oral) Resp 18 Ht 1.549 m (5' 0.98) Wt 59.3 kg (130 lb 12.8 oz) Comment: standing wt SpO2 95% BMI 24.73 kg/m Smoking Status Former Constitutional: patient is awake, alert and in no distress today with a pleasant affect. Chest: lungs clear to auscultation Cardiovascular: Normal carotid pulses, the JVP is not elevated, irregularly irregular; S1 normal, S2 normal, and there are no murmurs, rub or gallops appreciated Extremities: [place] and warm. Palpable DP/PT pulses. Pedal edema is none Neurological: Patient is alert and oriented to person, place and time. Speech clear. Skin: No cyanosis. Nails show no clubbing. CARDIOVASCULAR IMAGING/DATA Results for orders placed during the hospital encounter of 04/12/24 ECHOCARDIOGRAM 04/14/2024 (Final) Interpretation Summary Normal left ventricular size with mild global LV dysfunction. EF difficult to quantify due to variable R-R intervals (in atrial fibrillation). EF visually estimated at 45%. Normal right ventricular size with mild to moderate RV dysfunction. Biatrial enlargement. There is mild aortic, mitral, and tricuspid regurgitation. 24 hour telemetry (personally reviewed): No events EKG: AF / VR 125 / QRS 82 / QT/QTc 330/476 / ADDITIONAL DATA REVIEWED Intake/Output Summary (Last 24 hours) at 04/14/2024 1447 Last data filed at 04/14/2024 1432 Gross per 24 hour Intake 964.29 ml Output 650 ml Net 314.29 ml Temp: [97.4 F (36.3 C)-98.1 F (36.7 C)] 97.5 F (36.4 C) Pulse (Heart Rate): [52-144] 140 Resp Rate: [16-18] 18 BP: (112-151)/(56-84) 121/70 O2 Sat (%): [94 %-96 %] 95 % Weight: [59.3 kg (130 lb 12.8 oz)] 59.3 kg (130 lb 12.8 oz) Oxygen Therapy O2 Sat (%): 95 % O2 Device: room air Body mass index is 24.73 kg/m . LABS Bun/Creat/Cl/CO2/Glucose: 32/1.08/98/33/110 (04/14 422) Na/K+/Phos/Mg/Ca: 140/4.3/--/2.1/-- (04/14 422) WBC/Hgb/Hct/Plts: 8.66/13.0/39.9/255 (04/14 422) No results found for: BNP Lab Results Component Value Date CHOLESTEROL 212 (H) 04/13/2024 TRIG 84 04/13/2024 HDL 67 04/13/2024 LDLCALC 128 (H) 04/13/2024 CURRENT MEDICATIONS: apixaban 5 mg Oral Q12H Atorvastatin 20 mg Oral QHS [START ON 04/15/2024] rzpdspxqcl-prcecjfkwrtxew-Cevkistwvt 2 puff Inhalation Daily [Held by provider] dapagliflozin 10 mg Oral Daily Dofetilide 125 mcg Oral Q12HNS fexofenadine 60 mg Oral Daily fluticasone 2 spray Nasal Daily [Held by provider] furOSEmide 60 mg Oral BID Metoprolol succinate 25 mg Oral Once Metoprolol succinate 50 mg Oral BID Multi-Vitamins 1 tablet Oral Daily Pantoprazole 40 mg Oral Daily Spironolactone 25 mg Oral Daily [id number] Score for Atrial Fibrillation Stroke Risk Age in Years: 75+ Sex: Female CHF History: Yes Hypertension History: Yes Stroke/TIA/Thromboembolism History: Yes Vascular Disease History: No Diabetes History: No [id number] Score: 7 Thank you for this consult. Please call with questions. We will continue to follow along. BRITANY Charles Electrophysiology Consult Service Phone: [phone] * Shelly Noyola PA-C - 04/14/2024 12:21 PM EST Heart Failure 2/Advanced Heart Failure Progress Note Provider: Shelly Noyola PA-C IDENTIFYING INFORMATION PATIENT: Elizabeth Persaud, 1945, [id number] LOS: 2 Code Status: Full Code Daily Plan: Plan of Care for Today: - Continue Tikosyn loading, EP plan for DCCV tomorrow - NPO MN - Continue Toprol dose to 50mg BID, consider increase Toprol to 75mg for HR control - Holding Farxiga tomorrow for NPO - Continue Eliquis - Hold home PO lasix 60mg daily, will resume tomorrow Subjective/Interval Note Overnight Issues: Patient flipped back into A-fib this morning. HR 140s Admission weight: 129lbs Current weight: Weight: 58.6 kg (129 lb 1.6 oz) (standing) Diet: DIET HEART HEALTHY - 4 GM SODIUM Fluid Restriction 2000mL (1000mL Nursing, 1000mL Nutrition) Telemetry personally reviewed: A-fib with RVR DVT Prophylaxis: Heparin gtt Activity: Cardiac rehab and As Tolerated Hospital Course: Elizabeth Persaud is a 78 y.o. 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. Patient reports symptoms began to worsen since being taken off her flecainide by EP 3 weeks ago. She notes her SOB is worse with exertion and states, I can feel my heart beat and vibrate through my chest. Additionally endorses worsening orthopnea (sleeps with wedge pillow), cough, ~6lb weight gain, and PND. Patient also notes she recently started using her home oxygen and has not used it several years. Reports occasional chest pain, but states it is relieved when she takes her omeprazole. Perpatient, her outpatient title curator increased her PO lasix dose to 60mg BID a few weeks ago and started her on aldactone. Due to worsening symptoms, she decided to seek care at [facility]. Work-up revealed trops 8, BNP 394, EKG showed AF with RVR. Treated with two doses of IV metoprolol 5mg, Toprol XL 60mg, IV lasix 60mg x1 and transferred to [facility] for further evaluation. Upon arrival to floor, patient is in rate controlled AF with HR in 110s, asymptomatic. She reports she has been complaint with eliquis and denies any missed dosages. Denies lightheadedness, dizziness, and syncopal episodes. Patient was recently seen by [facility] EP 03/08/24 for evaluation and management of AF/atypical atrial flutter. Recommended patient would benefit from repeat EPS and ablation for AF/AFL as outpatient with tikosyn load following the ablation to maintain SR. In the meantime, her toprol XL was increased to 50mg BID and she was instructed to stop taking her flecainide. She was scheduled to have an ablationon 04/22/24 with CTPV the day prior. 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 Since that time, she was managed with AC, DCCVs and an attempted cryoablation. Patient can tell when she is in SR or AF. The predominant symptoms are palpitations and SOB. Has tried amio in the past, but was discontinued d/t worsened HAAS. Upon arrival to floor, patient is in rate controlled AF with HR in 110s, asymptomatic. She reports she has been complaint with eliquis and denies any missed dosages. Plan - Consulted EP, successful DCCV today and start loading with Tikosyn - Continue Eliquis - Toprol XL 50mg BID, will consider increase to 75mg BID for rate control - Plan for repeat DCCV tomorrow, NPO MN - Plan for OP ablation on 04/22 [id number] Score for Atrial Fibrillation Stroke Risk Age in Years: 75+ Sex: Female CHF History: Yes Hypertension History: Yes Stroke/TIA/Thromboembolism History: Yes Vascular Disease History: No Diabetes History: No [id number] Score: 7 Chronic diastolic heart failure (HFpEF) / non-ischemic cardiomyopathy / Likely tachy-mediated NT-proBNP elevated at 4.6K, physical exam significant for JVD to mid neck. Treated with IV lasix 60mg x1 prior to transfer. On exam patient appeared euvolemic. Symptomatic HF with LVEF 60% NYHA functional class III, ACC/AHA stage C Lab Results Component Value Date NTERMINALPRO 4,593 (H) 04/13/2024 Diuretics: PO lasix 60mg daily SGLT2: Jardiance 10mg daily --> farxiga while inpatient MRA: Aldactone 25mg daily ARNI or ARB: none Other HTN agent: Toprol XL 50mg BID Strict I/O Daily weight Heart Healthy diet 4 gm sodium with 2 liter fluid restriction HTN - See meds above BP Readings from Last 3 Encounters: 04/14/24 116/56 03/08/24 (!) 150/100 Hyperlipidemia - Start Lipitor 20mg daily this admission Lab Results Component Value Date CHOLESTEROL 212 (H) 04/13/2024 TRIG 84 04/13/2024 HDL 67 04/13/2024 LDLCALC 128 (H) 04/13/2024 CKD Stage III (I=GFR>90, II=60-89, III=30-59, IV=15-29, V<15) Baseline Cr 0.8-1, stable at 1 upon admission Lab Results Component Value Date CREATSERUM 1.00 04/13/2024 Lab Results Component Value Date GFR 58 (L) 04/13/2024 Estimated Creatinine Clearance: 39 mL/min (by C-G formula based on SCr of 1 mg/dL). 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 Brain MRI showed no ischemic stroke. 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 Evaluated by Neurology, recommended to continue Eliquis as well as monitor her blood pressure and cholesterol. Of note, she does have residual numbness and decreased taste to her tongue. - Continue Eliquis - Not currently on statin, plan to start this admission given high ASCVD score of 24.9% History of BPPV Requiring Kan maneuvers in the past and meclizine with some relief. History of scoliosis and cervical spinal stenosis s/p fusion Patient reports diclofenac is the only pain med that provided relief. Educated patient on risks of using NSAID with CKD and HF. - PT/OT - Consider palliative consult for pain management Acute respiratory insufficiency, resolved Pt reports she recently started using her home oxygen and has not used it several years. Required supplemental O2 at OSH. O2 Sat (%): 98 % (04/13 040) O2 Device: room air (04/12 2315) COPD, mild Follows with pulmonary at [facility]. - Continue inhaler therapies Former Nicotine Dependence - Quit in 2005, 70 pack year smoker Leukocytosis of unknown origin (resolved) Afebrile, non-toxic appearing upon admission. Likely due to A-fib with RVR - Trend with daily CBCs with diff Lab Results Component Value Date WBC 8.66 04/14/2024 WBC 8.98 04/13/2024 Anemia of Chronic Disease Secondary to HF and CKD - Consider PO iron after DCCV Lab Results Component Value Date HGB 13.0 04/14/2024 HGB 13.9 04/13/2024 HGB 14.7 04/13/2024 Lab Results Component Value Date IRON 75 04/13/2024 FERRITIN 113.0 04/13/2024 Lab Results Component Value Date TRANSFERRIN 338 04/13/2024 Lab Results Component Value Date TIBC 423 04/13/2024 Lab Results Component Value Date IRONSATURAT 18 (L) 04/13/2024 Pre-Diabetes Mellitus Type 2 A1c on admission 6. On home Farxiga will resume once EP procedure is done Recent Labs 04/13/24 0005 GLUCOSE 108* Lab Results Component Value Date HGBA1C 6.0 (H) 04/13/2024 Complexity. Multi-disciplinary decision making was completed with representatives from Heart Failure Cardiology, LVAD coordinators, Psychology (Behavioral Cardiology), ADRIÁN's, nursing and PharmDs. Objective: Temp: [97.4 F (36.3 C)-98.2 F (36.8 C)] 97.4 F (36.3 C) Pulse (Heart Rate): [49-128] 52 Resp Rate: [16-18] 16 BP: (89-151)/(52-69) 116/56 O2 Sat (%): [92 %-100 %] 94 % Body mass index is 24.39 kg/m . Physical Exam Constitutional: She appears chronically ill. Eyes: Conjunctivae are normal. Neck: No JVD present. Cardiovascular: S1 normal and S2 normal. An irregularly irregular rhythm present. Tachycardia present. Pulses: Radial pulses are 2+ on the right side and 2+ on the left side. Warm and dry Pulmonary/Chest: Breath sounds normal. She has no wheezes. She has no rales. Abdominal: Soft. She exhibits no distension. Musculoskeletal: General: No edema. Cervical back: Normal range of motion. Neurological: She is alert and oriented to person, place, and time. Skin: Skin is warm and dry. Patient Lines/Drains/Airways Status Active Lines, Drains, Airways, & Wound Overview Name Placement date Placement time Site Days Peripheral IV Line - Single Lumen 04/13/2423 forearm, anterior, left 22 gauge 04/13/24 0024 -- 1 Data Review: Recent Labs 04/13/24 0005 04/13/24 0712 04/14/24 0422 WBC 11.67* 8.98 8.66 HGB 14.7 13.9 13.0 HCT 43.9 42.1 39.9 PLATELET 301 290 255 SODIUM 141 -- -- POTASSIUM 3.6 -- -- CHLORIDE 97* -- -- CO2 27 -- -- BUN 24 -- -- CREATSERUM 1.00 -- -- NTERMINALPRO 4,593* -- -- Lab Results Component Value Date NTERMINALPRO 4,593 (H) 04/13/2024 Recent Labs 04/13/24 0005 ALKPHOS 91 AST 35 ALT 28 ALBUMIN 4.4 Results for orders placed in visit on 12/31/22 ECHOCARDIOGRAM (OUTSIDE) (Final) apixaban 5 mg Oral Q12H Atorvastatin 20 mg Oral QHS yntmnwxnae-hnuikomdrspxbp-Ogeuphtkih 2 puff Inhalation Daily dapagliflozin 10 mg Oral Daily Dofetilide 125 mcg Oral Q12HNS fluticasone 2 spray Nasal Daily furOSEmide 60 mg Oral BID Metoprolol succinate 25 mg Oral BID Multi-Vitamins 1 tablet Oral Daily Pantoprazole 40 mg Oral Daily Spironolactone 25 mg Oral Daily Discussed with team on rounds. This plan will be discussed with Dr. Toña Persaud MD, the attending president celebrity acquistion. DISCHARGE PLANNING: Dispo/Debility -Skilled therapy is anticipated upon discharge to home Follow Up Appointments: Heart Failure FORMULATOR Hospital Follow Up Appt within 7-10 days of discharge: TBD Please Ensure Follow Up Labs / Testing are scheduled: TBD Shelly Noyola PA-C HF2/Advanced Heart Failure Phone: [phone] Associated attestation - Toña Persaud MD - 04/14/2024 9:56 PM EST Attending Physician Note I saw and evaluated the patient today with the advanced practice provider on heart failure rounds. I provided a substantive portion of the care for this patient. I personally performed all aspected of the medical decision making for this encounter. We discussed the symptoms and exam findings, results of testing and therapeutic plan. I have reviewed and verified this documentation including the history, physical examination, and medical decisions as outlined in the progress note, and it accurately reflects our care. Mrs. Persaud is a 78 yo F with a past medical history of persistent atrial fibrillation as well as prior typical atrial flutter s/p ablation and multiple cardioversions as well as HFpEF, TIA, and COPDwho presented with atrial fibrillation with RVR with worsening dyspnea. AF and HDS today. DCCV yesterday and started on tikosyn with return to atrial fibrillation with RVRtoday. Labs stable. #Persistent Atrial Fibrillation with RVR: EP following. S/p DCCV and started on tikosyn load with Qtc monitoring. Will need repeat DCCV now that back in atrial fibrillation. Tentative plan for tomorrow or 04/16 per EP. Increase metoprolol succinate to 75 mg BID due to elevated rates. Continue home DOAC. Plan for outpatient ablation in mid April (04/22). #Acute on Chronic Heart Failure: Likely provoked by atrial fibrillation. Patient with historically preserved EF with now mildly reduced EF on TTE (45%). Likely tachy-mediated. On spironolactone, SGLT-2 inhibitor, and beta karson at home. Restart oral torsemide tomorrow (60 mg). Toña Hung Computer Processing Scheduler Cardiovascular Medicine Heart Failure and Transplant Medicine [facility] [id number] * Vince Sellers - 04/13/2024 1:13 PM EST Introduced self and role of the aircraft structural fitter to patient/family. Provided emotional and spiritual support and the patient/family responded by sharing their experience and discussed the following: Family and strength. Patient/family encouraged to request a aircraft structural fitter as needed. Chaplains are available 24 hours a day and 7 days a week. For urgent matters in [facility], please page [phone]. If the request is not urgent, please enter a consult. Consults are responded to within 24 hours. Vince Sellers: Reddy Martinez Manager Construction 02/12 On-call Pager ([phone]) Department of Material Reprocessing Associate and Clinical Pastoral Education [facility] [id number] Telma Bradford, [address]; [place] [address] [email or web address] 04/13/24 0930 Clinical Encounter Type Visited With Patient and family together Visit Type Introduction Pastoral Time Spent 30 min Referral IHIS Consult/Referral Jehovah'S Witness Encounters Jehovah'S Witness Needs Prayer Spiritual Assessment Spiritual Observation Spirituality helpful Emotional Observation Coping well Hope Observation Hopeful and accepting Support Observation Strong support;By Family Interventions Provided Active listening;Prayer;Supportive presence Facilitated Verbalization of feelings;Experiencing life change;Identifying support system;Identifying Sources of spiritual well-being Explored Family issues;Harriett issues Material Reprocessing Associate Education Material Reprocessing Associate Service Available Yes Outcomes Patient Outcomes Progressed toward focus on present Family Outcomes Progressed toward focus on present Plan of Care Continue Visiting Yes;PRN * Diamond Lakhani, Pharm Student - 04/13/2024 12:40 PM EST Department of Pharmacy Admission Medication Reconciliation Note Patient: Elizabeth Persaud Room/Bed: 7030/A I have reviewed the patient's home medication list with the following sources Patient recall with prompting, Dispense Report, OARRs, and Pharmacy (Name [facility] Phone [phone]). [place]pe also reviewed this list with the pharmacist. I am recommending the following changes to the home medication list. These recommendations are considered preliminary until attestation of this note by a pharmacist. Added to Home Medications: Acetaminophen (Tylenol 8 Hour Arthritis Pain) 650 MG Tab CR Bacillus Coagulans-Inulin (PROBIOTIC-PREBIOTIC PO) capsule from [employer] Potassium Chloride ER 20 MEQ Tab CR tablet Melatonin 5 mg gummies Deleted from Home Medications: Diclofenac 75mg tab: Patient no longer taking due to effect on kidneys. Last fill date 12/30/23 #30/30DS. Melatonin 3 mg tab: Patient is no longer taking and has changed to melatonin 5mg gummies. Probiotic Product (ALIGN PO): Patient no longer taking, switched to a different prebiotic-probioticcapsule Edits to Home Medications: Metoprolol succinate XL 50mg tab: Take 1 tab by mouth twice daily. (Changed from Take 1 tablet by mouth 2 times daily. Take 50 at bedtime and 25 qAM for a week, then 50 BID thereafter.) Other Comments: The patient's allergies have been reviewed with Patient and Pharmacy. Patient could not recall if she had reaction with trazodone. Acetaminophen 650 mg tab: Patient takes 1 tab as needed when working. Calcium: Patient confirmed she is taking both the calcium + Vit D tablets and calcium/magnesium/zinc tablets. Flecainide 100 mg tab: Patient confirms stopped taking after ablation. Last fill 01/20/24 for #180/90DS. Jyzljeuflwp-dxsdolbkt-Oiyfwf (Trelegy Ellipta) 100-62.5-25 MCG/ACT Aerosol Powder, breath activatedinhaler: Patient inhales 1 puff daily as needed when working/physical activity. Patient questions the usage of this medication, as she states it does not work for her. Last fill: 03/16/24 #60(1 inhaler)/30DS Ipratropium 17 MCG/ACT Aero Soln inhaler: Patient states she has the inhaler at home but is not using. No recent fill history from pharmacy within the past year. Nystatin [id number] UNIT/ML oral suspension: Patient states she has another fill that was not picked upfrom pharmacy yet (last fill: 04/02/24 200mL/10DS). She also states that she takes it differently from prescribed. Patient swishes and spits out 5 mL instead of swishing and swallowing. Patient only using when taking with Trelegy inhaler. Please feel free to contact me with any further questions. Name: Addis Rizzo Student Preceptor: Akua Ramirez PharmD Date/Time: 04/13/2024 12:41 PM Time Spent: 110 minutes Associated attestation - Akua Ramirez RPH - 04/13/2024 2:39 PM EST Department of Pharmacy Admission Medication Reconciliation Note Patient: Elizabeth Persaud Room/Bed: 7030/A I have reviewed the home medication list with the Student. The home medication list status is: complete. All changes to the home medication list have been updated in I[facility]IS. Updated HEALTHCARE TECHNICIAN Med List: Prior to Admission Medications Prescriptions Bacillus Coagulans-Inulin (PROBIOTIC-PREBIOTIC PO) Sig: Take 1 capsule by mouth daily. CALCIUM MAGNESIUM ZINC PO Sig: Take 1 tablet by mouth daily. Calcium Carb-Cholecalciferol (CALCIUM 500 + D PO) Sig: Take 1 tablet by mouth daily. Empagliflozin (Jardiance) 10 MG tablet Sig: Take 1 tablet by mouth daily. Ipratropium 17 MCG/ACT Aero Soln inhaler Sig: Inhale 2 puffs every 6 hours. max 12 inhalations/day Melatonin Gummies 5 MG Chew Tab Sig: Chew 2 tablets at bedtime. Metoprolol succinate 50 MG tablet XL Sig: Take 1 tablet by mouth 2 times daily. Take 50 at bedtime and 25 qAM for a week, then 50 BID thereafter. Patient taking differently: Take 1 tablet by mouth 2 times daily. Multiple Vitamin (MULTI-DAY PO) Sig: Take 1 tablet by mouth daily. Nystatin [id number] UNIT/ML oral suspension Sig: Swish and swallow 5 mL 4 times daily. Potassium Chloride ER 20 MEQ Tab CR tablet Sig: Take 1 tablet by mouth daily. Take with furosemide. May need to take twice a day for shortnessof breath. Spironolactone 25 MG tablet Sig: Take 1 tablet by mouth daily. acetaminophen (Tylenol 8 Hour Arthritis Pain) 650 MG Tab CR Sig: Take 1 tablet by mouth every 6 hours as needed for Mild Pain. apixaban 5 MG tablet Sig: Take 1 tablet by mouth every 12 hours. fluticasone 50 MCG/ACT Suspension nasal spray Si sprays by Nasal route daily. wxkkbzhxxus-rkhcszkqv-Hjflne (Trelegy Ellipta) 100-62.5-25 MCG/ACT Aerosol Powder, breath activatedinhaler Sig: Inhale 1 puff daily. furOSEmide 40 MG tablet Sig: Take 1.5 tablets by mouth 2 times daily. omeprazole [address] capsule Sig: Take 1 capsule by mouth daily. Facility-Administered Medications: None Please feel free to contact me with any further questions. Name: Akua Ramirez [facility] Phone #: [phone] Date/Time: 04/13/2024 2:38 PM * Shelly Noyola PA-C - 04/13/2024 12:04 PM EST Heart Failure 2/Advanced Heart Failure Progress Note Provider: Shelly Noyola PA-C IDENTIFYING INFORMATION PATIENT: Elizabeth Persaud, 1945, [id number] LOS: 1 Code Status: Full Code Daily Plan: Plan of Care for Today: - DCCV today, keep NPO - Start Tikosyn load per EP - Resume home Eliquis and stop heparin at 21:00 - Continue Toprol Xl 50mg BID - Will transition to home PO lasix tomorrow - Holding SGLT2i today for NPO - Repeat Echo after DCCV (will place order for tomorrow) - Start Lipitor 20mg daily Subjective/Interval Note Overnight Issues: No acute overnight event. HR controlled Admission weight: 129lbs Current weight: Weight: 58.6 kg (129 lb 1.6 oz) (standing) Diet: DIET NPO with meds Telemetry personally reviewed: Afib with RVR DVT Prophylaxis: Heparin gtt Activity: Cardiac rehab and As Tolerated Hospital Course: Elizabeth Persaud is a 78 y.o. 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. Patient reports symptoms began to worsen since being taken off her flecainide by EP 3 weeks ago. She notes her SOB is worse with exertion and states, I can feel my heart beat and vibrate through my chest. Additionally endorses worsening orthopnea (sleeps with wedge pillow), cough, ~6lb weight gain, and PND. Patient also notes she recently started using her home oxygen and has not used it several years. Reports occasional chest pain, but states it is relieved when she takes her omeprazole. Perpatient, her outpatient title curator increased her PO lasix dose to 60mg BID a few weeks ago and started her on aldactone. Due to worsening symptoms, she decided to seek care at [facility]. Work-up revealed trops 8, BNP 394, EKG showed AF with RVR. Treated with two doses of IV metoprolol 5mg, Toprol XL 60mg, IV lasix 60mg x1 and transferred to [facility] for further evaluation. Upon arrival to floor, patient is in rate controlled AF with HR in 110s, asymptomatic. She reports she has been complaint with eliquis and denies any missed dosages. Denies lightheadedness, dizziness, and syncopal episodes. Patient was recently seen by [facility] EP 03/08/24 for evaluation and management of AF/atypical atrial flutter. Recommended patient would benefit from repeat EPS and ablation for AF/AFL as outpatient with tikosyn load following the ablation to maintain SR. In the meantime, her toprol XL was increased to 50mg BID and she was instructed to stop taking her flecainide. She was scheduled to have an ablationon 04/22/24 with CTPV the day prior. 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 Since that time, she was managed with AC, DCCVs and an attempted cryoablation. Patient can tell when she is in SR or AF. The predominant symptoms are palpitations and SOB. Has tried amio in the past, but was discontinued d/t worsened HAAS. Upon arrival to floor, patient is in rate controlled AF with HR in 110s, asymptomatic. She reports she has been complaint with eliquis and denies any missed dosages. Plan - Consulted EP, plan for DCCV today and start loading with Tikosyn today - Resume Eliquis today and stop heparin gtt - Continue home Toprol XL 50mg BID - Plan for ablation next week as OP [id number] Score for Atrial Fibrillation Stroke Risk Age in Years: 75+ Sex: Female CHF History: Yes Hypertension History: Yes Stroke/TIA/Thromboembolism History: Yes Vascular Disease History: No Diabetes History: No [id number] Score: 7 Acute on Chronic diastolic heart failure (HFpEF) / non-ischemic cardiomyopathy / Likely tachy-mediated NT-proBNP elevated at 4.6K, physical exam significant for JVD to mid neck. Treated with IV lasix 60mg x1 prior to transfer. Symptomatic HF with LVEF 60% NYHA functional class III, ACC/AHA stage C Lab Results Component Value Date NTERMINALPRO 4,593 (H) 04/13/2024 Diuretics: PO lasix 60mg BID SGLT2: Jardiance 10mg daily --> farxiga while inpatient, holding for NPO MRA: Aldactone 25mg daily ARNI or ARB: none Other HTN agent: Toprol XL 50mg BID Strict I/O Daily weight Heart Healthy diet 4 gm sodium with 2 liter fluid restriction HTN - See meds above BP Readings from Last 3 Encounters: 04/13/24 110/61 03/08/24 (!) 150/100 Hyperlipidemia - Start Lipitor 20mg daily Lab Results Component Value Date CHOLESTEROL 212 (H) 04/13/2024 TRIG 84 04/13/2024 HDL 67 04/13/2024 LDLCALC 128 (H) 04/13/2024 CKD Stage III (I=GFR>90, II=60-89, III=30-59, IV=15-29, V<15) Baseline Cr 0.8-1, stable at 1 upon admission Lab Results Component Value Date CREATSERUM 1.00 04/13/2024 Lab Results Component Value Date GFR 58 (L) 04/13/2024 Estimated Creatinine Clearance: 39 mL/min (by C-G formula based on SCr of 1 mg/dL). 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 Brain MRI showed no ischemic stroke. 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 Evaluated by Neurology, recommended to continue Eliquis as well as monitor her blood pressure and cholesterol. Of note, she does have residual numbness and decreased taste to her tongue. - Eliquis holding, bridge with heparin - Not currently on statin, plan to start this admission given high ASCVD score of 24.9% History of BPPV Requiring Kan maneuvers in the past and meclizine with some relief. History of scoliosis and cervical spinal stenosis s/p fusion Patient reports diclofenac is the only pain med that provided relief. Educated patient on risks of using NSAID with CKD and HF. - PT/OT - Consider palliative consult for pain management Acute respiratory insufficiency, resolved Pt reports she recently started using her home oxygen and has not used it several years. Required supplemental O2 at OSH. O2 Sat (%): 98 % (04/13 0401) O2 Device: room air (04/125) COPD, mild Follows with pulmonary at [facility]. - Continue inhaler therapies Former Nicotine Dependence - Quit in 2005, 70 pack year smoker Leukocytosis of unknown origin (resolved) Afebrile, non-toxic appearing upon admission. Likely due to A-fib with RVR - Trend with daily CBCs with diff Lab Results Component Value Date WBC 8.98 04/13/2024 WBC 11.67 (H) 04/13/2024 Anemia of Chronic Disease Secondary to HF and CKD - Consider PO iron after DCCV Lab Results Component Value Date HGB 13.9 04/13/2024 HGB 14.7 04/13/2024 Lab Results Component Value Date IRON 75 04/13/2024 FERRITIN 113.0 04/13/2024 Lab Results Component Value Date TRANSFERRIN 338 04/13/2024 Lab Results Component Value Date TIBC 423 04/13/2024 Lab Results Component Value Date IRONSATURAT 18 (L) 04/13/2024 Pre-Diabetes Mellitus Type 2 A1c on admission 6. On home Farxiga will resume once EP procedure is done Recent Labs 04/13/24 0005 GLUCOSE 108* Lab Results Component Value Date HGBA1C 6.0 (H) 04/13/2024 Complexity. Multi-disciplinary decision making was completed with representatives from Heart Failure Cardiology, LVAD coordinators, Psychology (Behavioral Cardiology), ADRIÁN's, nursing and PharmDs. Objective: Temp: [97.5 F (36.4 C)-97.8 F (36.6 C)] 97.8 F (36.6 C) Pulse (Heart Rate): [89-116] 89 Resp Rate: [18-20] 18 BP: (110-140)/(61-85) 110/61 O2 Sat (%): [92 %-98 %] 94 % Weight: [58.5 kg (129 lb)-58.6 kg (129 lb 1.6 oz)] 58.6 kg (129 lb 1.6 oz) Body mass index is 24.39 kg/m . Physical Exam Constitutional: She appears chronically ill. Eyes: Conjunctivae are normal. Neck: No JVD present. Cardiovascular: S1 normal and S2 normal. An irregularly irregular rhythm present. Tachycardia present. Pulses: Radial pulses are 2+ on the right side and 2+ on the left side. Warm and dry Pulmonary/Chest: Breath sounds normal. She has no wheezes. She has no rales. Abdominal: Soft. She exhibits no distension. Musculoskeletal: General: No edema. Cervical back: Normal range of motion. Neurological: She is alert and oriented to person, place, and time. Skin: Skin is warm and dry. Patient Lines/Drains/Airways Status Active Lines, Drains, Airways, & Wound Overview Name Placement date Placement time Site Days Peripheral IV Line - Single Lumen 04/13/24 0024 forearm, anterior, left 22 gauge 04/13/24 0024 -- less than 1 Data Review: Recent Labs 04/13/24 0005 04/13/24 0712 WBC 11.67* 8.98 HGB 14.7 13.9 HCT 43.9 42.1 PLATELET 301 290 SODIUM 141 -- POTASSIUM 3.6 -- CHLORIDE 97* -- CO2 27 -- BUN 24 -- CREATSERUM 1.00 -- NTERMINALPRO 4,593* -- Lab Results Component Value Date NTERMINALPRO 4,593 (H) 04/13/2024 Recent Labs 04/13/24 0005 ALKPHOS 91 AST 35 ALT 28 ALBUMIN 4.4 Results for orders placed in visit on 12/31/22 ECHOCARDIOGRAM (OUTSIDE) (Final) [Held by provider] apixaban 5 mg Oral Q12H ctmnljhglk-ydhkodxmsfmdyc-Emjgebzsty 2 puff Inhalation Daily [Held by provider] dapagliflozin 10 mg Oral Daily fluticasone 2 spray Nasal Daily [Held by provider] furOSEmide 60 mg Oral BID Metoprolol succinate 50 mg Oral BID Multi-Vitamins 1 tablet Oral Daily Pantoprazole 40 mg Oral Daily Spironolactone 25 mg Oral Daily heparin 12 Units/kg/hr (04/13/24 0601) Discussed with team on rounds. This plan will be discussed with Dr. Toña Persaud MD, the attending president celebrity acquistion. DISCHARGE PLANNING: Dispo/Debility -Skilled therapy is anticipated upon discharge to home Follow Up Appointments: Heart Failure FORMULATOR Hospital Follow Up Appt within 7-10 days of discharge: TBD Please Ensure Follow Up Labs / Testing are scheduled: TBD Shelly Noyola PA-C HF2/Advanced Heart Failure Phone: [phone] Associated attestation - Toña Persaud MD - 04/13/2024 1:21 PM EST Attending Physician Note I saw and evaluated the patient today with the advanced practice provider on heart failure rounds. I provided a substantive portion of the care for this patient. I personally performed all aspected of the medical decision making for this encounter. We discussed the symptoms and exam findings, results of testing and therapeutic plan. I have reviewed and verified this documentation including the history, physical examination, and medical decisions as outlined in the progress note, and it accurately reflects our care. Mrs. Persaud is a 78 yo F with a past medical history of persistent atrial fibrillation as well as prior typical atrial flutter s/p ablation and multiple cardioversions as well as HFpEF, TIA, and COPDwho presented with atrial fibrillation with RVR with worsening dyspnea. AF and HDS today with HR in the 100-120s. NT pro BNP elevated at 4593. IV lasix at OSH and reportedgood UOP with 6lb weight loss. Last TTE in 12/2022 with normal LVEF. #Persistent Atrial Fibrillation with RVR: EP consulted. Plan for DCCV and tikosyn load. Continue home metoprolol XL 50 mg BID. Transition back to home DOAC tonight. Plan for outpatient ablation in mid April (04/22). #Acute on Chronic HFpEF: Likely provoked by atrial fibrillation. Given persistent of atrial fibrillation will repeat TTE to reassess EF. Restart home spironolactone. Restart SGLT-2 inhibitor when no longer NPO. Toña Persaud Computer Processing Scheduler Cardiovascular Medicine Heart Failure and Transplant Medicine [facility] [id number] * Diamond Soto - 04/13/2024 11:30 AM EST Inpatient Cardiopulmonary Rehab Consultation Completed. RN approved, as tolerated, and patient agreeable to visit. Patient reports feeling I've been up moving around! Activity Session Vitals: Patient requested to walk later today because she has been up walking already once today and would like to rest. RN notified/aware. Encouraged continued ambulation and discussed appropriate activity progression. Patient participation in outpatient cardiac rehab was discussed. Patient is interested in participating in rehab at their local facility: [facility]. AMB REFERRAL TO CARDIAC REHAB HAS BEEN PENDED. PLEASE REVIEW AND SIGN ORDER PRIOR TO DISCHARGE SO THE AMB REFERRAL CAN BE SENT TO APPROPRIATE FACILITY BY THE INPATIENT REHAB TEAM. Discharge education provided to the patient. Printed materials provided/reviewed: living with heartfailure book, CHF handouts. Patient s questions/concerns were addressed and topics below were discussed. 1. Pathophysiology of CHF 2. Signs/Symptoms to Monitor/Report 3. Specific Dietary Guidelines 4. Activity Guidelines/Recommendations 5. Daily Weight Monitoring 6. Cardiac Medications 7. Follow Up We will continue to follow up with patient as needed until discharge for education review and activity progression. Diamond Soto MS ([phone]) IP Cardiopulmonary & Vascular Rehab * MILTON Doty - 04/13/2024 10:15 AM EST Discharge Planning Patient Assessment Admission Assessment Patient Assessment Completed: Initial Expected Discharge Disposition: Home Reason for Admission: SOB and palpitations Is the patient able to participate in the assessment?: Yes Information source: Patient, Review of Medical Record Information Source Name/Contact: Elizabeth Persaud Demographics Verified and Updated: Yes Has the patient been admitted to any hospital in the last 30 days?: Transferred From Outside Hospital Advanced Care Planning Has the patient completed Advance Directives?: Completed, Not Available in Medical Record Copy of Advance Directives was requested?: Yes Advance Directives Requested From: patient Legal Next of Kin Does the patient have a Guardian?: No Spouse: No Adult Child(katia), List All Adult Children: Yes - Estranged Name and Contact information: son in residential Nearest Adult Related by Blood or Adoption: Yes Name and Contact information: Dickson Andrade [phone] Reviewed and Updated in Demographics? : Yes Outpatient Providers Does patient have a primary care physician? : Yes When was the patient's last PCP visit?: < 30 days Does the patient follow any specialists?: Yes Reviewed and updated Care Team?: Yes Patient Care Team: Minerva Shaver MD as PCP - General (Internal Medicine) Maxim Ibarra MD as PCP - Referring 1 (Cardiovascular Disease) Laith Montes MD as PCP - Referring 2 (Pulmonary Disease) Environment/Caregivers Is the patient from a facility or correction?: No Patient lives with: Alone Living Environment: House How many steps does the patient have to navigate to enter or inside the home? : 1 Does the patient have a first floor set-up with bed and bathroom?: Yes Patient Caregiving Responsibilities: Self, Pet(s) Patient-identified caregiver/support network: Family Who does the patient identify as a teachable caregiver(s)?: Other Family Services Does the patient use a home health or hospice agency?: No Current with dialysis?: No Does the patient use any community programs or services?: No Does patient use DME? : none Does the patient use oxygen?: Yes [facility]Flow?: 1 Order for oxygen use?: prn Portable tank?: No Does patient use medical supplies? : none Anticipated Changes Related to Illness/Injury? : No Initial ADLs Prior to Arrival What is the patient's baseline physical functioning prior to this acute illness?: independent What is the patient's baseline cognitive functioning prior to this acute illness?: independent Is the patient's baseline functioning changed by this acute illness? : No Concerns with patient being able to care for themselves at home? : No Are there therapy or specialists consults?: Yes Select consult type: PT, OT Does the patient's home require any home modifications for discharge? : No CM to recommend therapy or other consults? : No Medication Management Does the patient have prescription insurance coverage? : Yes Is the patient on Anticoagulation? : Yes Provider or Clinic that manages Anticoagulation?: [facility] [place] [address] [id number] [facility] [id number] [facility] [id number] Senior Adults Director Does the patient or business development representative express financial concerns? 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[employer]) Coping/Stress Concerns about patient s coping and stress?: No Concerns about patient s caregiver s coping and stress?: Unable to Assess Values and Beliefs Cultural or yarsani practices that may impact discharge planning and/or medical care?: No Initial Discharge Planning Expected Discharge Disposition: Home Transportation Available for Discharge: Private Vehicle, Family or Friend Anticipated DME: none Anticipated Services at Discharge: Outpatient follow up Patient Assessment Completed: Initial Expected Discharge Date: 04/16/2024 Discharge Planning Summary CM met with patient to complete initial assessment Anticipate discharge to home with outpatient follow up No discharge needs noted for CM intervention Care Management Plan 1.Role of Energy Economist explained while [facility] 2.PCP/Specialist/pharmacy information updated as needed 3. Patient demographic/address/emergency contact information verified Leonora ROSE Energy Economist [facility] * Marcelino Matthew PT - 04/13/2024 9:27 AM EST Acute Physical Therapy Evaluation Prior Gross Functional Mobility: independent Current AM-PAC score(s): CURRENT AM-PAC Mobility Raw Score: 23 Based on the above AM-PAC score(s) and PT clinical judgment, patient is a good candidate for discharge to Home Would like to assess further mobility and stairs once HR and rhythm allows. Do not anticipate any issues. Barriers to discharge home: None Mobility equipment available at home: none used ADL equipment available at home: grab bars, hand held shower hose Equipment needed for discharge: Current therapy frequency recommendation in acute: PT Therapy Frequency: 2 times a week Activity Recommendations for outside of rehab session: OOB for meals, up with supervision No past medical history on file. No past surgical history on file. Precautions and Weightbearing Status: Existing Precautions/Restrictions: cardiac Telemetry Patient Safety Communication Prior to Visit: Nursing Subjective: Pt in chair, agreeable to PT. Reports she can feel her heart racing. Pain: General Pain Documentation (Adult, OB, Peds) Presence of Pain: denies pain/discomfort Presence of Pain Score (Auto-calculated): 0 Home Setting Residence: House (2 story house but stays on 1st floor) Lives With: (dog) Patient receives help from : none Patient reported support for discharge planning: none First floor setup: bedroom, tub shower Second floor setup: (does not access 2nd floor) Number of stairs to enter home: 0 Number of stairs in home: 8 (to basement for laundry) Stair Railings at Home: interior - no rail Mobility Equipment Available: none used ADL Equipment Available: grab bars, hand held shower hose Previous Level of Function Gross Functional Mobility: independent Assistive Device: none used Prior level ADL Overview: Independent with all ADLs Dominant Hand: Right Bed Mobility: independent Transfers: independent Stairs: independent Ambulation: independent with all needs Prior Level of Function Details: 5 falls last year due to orthostatic hypotension/positional vertigo but no falls recently Vocation: (Pt works in [employer] at [employer].) Objective/Observation: Vitals/Vitals Responses to Treatment: A-fib at rest with rates from 95-~125, with walking into restroom and ADL tasks, HR up to 140s O2 Device: room air Cognition Overall Cognitive Status: Within Functional Limits Arousal/Alertness: Appropriate responses to stimuli Orientation Level: Oriented X4 Following Commands: Follows all commands and directions without difficulty Vision Screen Currently wearing corrective lenses: No Visual Impairments Observed?: No Speech Speech: no gross deficits noted Hearing Hearing: no gross deficits noted (does report hearing aids, but is not wearing) Extremity Assessments: RUE Assessment RUE Assessment: Within Functional Limits LUE Assessment LUE Assessment: Within Functional Limits RLE Assessment RLE Assessment: Within Functional Limits LLE Assessment LLE Assessment: Within Functional Limits Sensation Overall Sensation: (Reports carpal tunnel in left hand, neuropathy in feet) Skin Integrity Skin Integrity Description: WFL Mobility Assessment: Balance: Sitting Balance Static Sitting-Level of Assistance: Independent Dynamic Sitting-Level of Assistance: Independent Standing Balance Static Standing-Level of Assistance: Independent Dynamic Standing-Level of Assistance: Independent Transfer Assessment: Sit to Stand Transfer [place] Level: Sit->Stand: independent Stand to Sit Transfer [place] Level: Stand->Sit: independent Gait/Functional Mobility: Gait Assessment [place] Level: Gait: supervision Ambulation Distance (Feet): 25 (in room) Gait Deviations Identified: decreased mari Stairs: Stairs Assessment [place] Level: Stair Negotiation: not tested Outcome Score(s): CURRENT AM-PAC Basic Mobility Inpatient Short Form Turning over in bed: 4 - No Assistance Moving from lying on back to sittin - No Assistance Moving to and from bed to chair: 4 - No Assistance Sitting/standing from chair: 4 - No Assistance Walk in hospital room: 4 - No Assistance Climbing 3-5 steps with a railin - A Little Assistance CURRENT -[facility] Mobility Raw Score: 23 [address] [facility] Mobility Functional Limitation: 11.20% Impaired in Basic Mobility Assessment & Plan: Patient was admitted for SOB, palpitations, a-fib and seen for therapy evaluation related to mobility concerns and discharge needs. Exam findings include impairments in: Gait/Locomotion, Circulation/vascular, Aerobic capacity/endurance. These impairments contribute to functional limitations including Decreased functional mobility. Current clinical presentation is Evolving - changing/inconsistent clinical characteristics (Moderate). Patient history factors impacting Plan Of Care include a-fib. Patient will benefit from skilled physical therapy to address these impairments, functional limitations, and participation restrictions and has excellent rehab potential to achieve therapy goals. Planned Therapy Interventions: functional activity tolerance, gait training Patient Instruction/Education this session: Learners: Patient Education provided: Activity outside of therapy, Discharge recommendations, Plan of care, Role of this discipline Teaching method: Verbal Education/Instruction Learner response: States/Identifies/Teaches back Plan for next session: advance ambulation into halls, stairs if HR allows Acute PT Goals Plan of Care by Marcelino Matthew PT at 04/13/2024 9:27 AM Version 1 of 1 Problem: PT - General Goals Goal: Ambulation - Patient will ambulate 400 feet with independence, with/out an assistive device to improve ability to safely navigate home and community. Outcome: Progressing Goal: Stairs - Patient will ascend/descend 1 flight of stairs with supervision, without an assistive device, and single railing(s) to improve ability to safely navigate home and community. Outcome: Progressing PT treatment consisted of the following to progress towards the above goal(s): PT Evaluation and Treatment Time PT Evaluation (Low) Time Entry: 19 Evaluating Therapist: Marcelino Matthew PT Additional Details: PT Co-Eval/Treatment Information Co-evaluation/co-treatment performed?: Yes, simultaneous billable skilled care was necessary due tomedical complexity and functional deficits Other discipline: OT Rationale for need to co-eval/treat: postural control Evaluation Complexity Components History: High (3 personal factors and/or comorbidities) Body Systems Review: Low (Addressing 1-2 elements) Clinical Presentation: Evolving - changing/inconsistent clinical characteristics (Moderate) Clinical Decision Making Complexity: Low Time In: 907 Time Out: 926 Total Visit Time: 19 minutes Total Treatment Time (skilled, billable minutes): 19 minutes PPE used during patient interaction: gloves Patient location at end of session: bed with head of bed elevated, RN aware Alarms on at end of session: none, RN aware Needs in reach. Upon discontinuation of Acute Care Physical Therapy Services or patient discharge from the hospitalthis note represents the current Physical Therapy Discharge Summary. * Nitza Clements OT - 04/13/2024 9:07 AM EST Acute Occupational Therapy Evaluation and Discharge Prior Gross Functional Mobility: independent Current AM-PAC score(s): CURRENT AM-PAC Activity Raw Score: 24 Based on the above AM-PAC score(s) and OT clinical judgment, discharge destination recommendation is: Home Barriers to discharge home: (None) Mobility equipment available at home: none used ADL equipment available at home: grab bars, hand held shower hose Equipment recommendations for discharge: none Current therapy frequency recommendation(s) in acute: no therapy warranted Activity Recommendations for outside of rehab session: OOB for all meals and 3 walks per day Precautions and Weightbearing Status: Telemetry Patient Safety Communication Prior to Visit: Nursing Subjective: I start to feel lightheaded. That's what brought me in. Pain: General Pain Documentation (Adult, OB, Peds) Presence of Pain: denies pain/discomfort Presence of Pain Score (Auto-calculated): 0 Home Setting Residence: House (2 story house but stays on 1st floor) Lives With: (dog) Patient receives help from : none Patient reported support for discharge planning: none First floor setup: bedroom, tub shower Second floor setup: (does not access 2nd floor) Number of stairs to enter home: 0 Number of stairs in home: 8 (to basement for laundry) Stair Railings at Home: interior - no rail Mobility Equipment Available: none used ADL Equipment Available: grab bars, hand held shower hose Previous Level of Function Gross Functional Mobility: independent Assistive Device: none used Prior level ADL Overview: Independent with all ADLs Dominant Hand: Right Bed Mobility: independent Transfers: independent Stairs: independent Ambulation: independent with all needs Prior Level of Function Details: 5 falls last year due to orthostatic hypotension/positional vertigo but no falls recently Vocation: (Pt works in [employer] at [employer].) IADL History IADLs: independent Objective/Observation: Vitals/Vitals Responses to Treatment: beginning of session 04/13/24 0907 Vitals ICU/PCU Pulse (Heart Rate) 103 BP 110/69 MAP (mmHg) 82 mmHg Oxygen Therapy O2 Sat (%) 92 % O2 Device room air O2 Device: room air Vision Screen Currently wearing corrective lenses: No Hearing Hearing: no gross deficits noted, hearing aids (did not bring hearing aids) Cognition Overall Cognitive Status: Within Functional Limits ADLs: ADL Anticipated Performance (ADLs not directly observed this session): Eating, Bathing, UE Dressing, LE Dressing Eating Assistance: Independent Grooming Assistance: Independent Grooming Location: standing at sink Grooming Intervention/Details: Pt brushed her teeth without assistance. Bathing Assistance: Independent UE Dressing Assistance: Independent LE Dressing Assistance: Independent Toilet Assistance: Independent Toileting Location: toilet Toileting Intervention/Details: Pt performed all aspects of toileting without assistance. Extremity Assessments: RUE Assessment RUE Assessment: Within Functional Limits LUE Assessment LUE Assessment: Within Functional Limits Balance: Sitting Balance Static Sitting-Level of Assistance: Independent Dynamic Sitting-Level of Assistance: Independent Standing Balance Static Standing-Level of Assistance: Independent Dynamic Standing-Level of Assistance: Independent Neuro: Sensation Overall Sensation: Impaired Sensation Comments: Carpal tunnel in left hand (had carpal tunnel release in right hand), neuropathy in bilat feet Mobility Assessment: Supine to Sit Mobility [place] Level: Supine->Sit: independent Sit to Supine Mobility [place] Level: Sit->Supine: independent Transfer Assessment: Sit to Stand Transfer [place] Level: Sit->Stand: independent Stand to Sit Transfer [place] Level: Stand->Sit: independent Toilet Transfer [place] Level: Toilet: independent Functional Mobility: Functional Mobility [place] Level: Functional Mobility/Gait: independent Skilled Intervention/Details - Functional Mobility/Gait: 25' in room- mobility limited due to elevated HR when ambulating (RN aware) Outcome Score(s): CURRENT AM-PAC Daily Activity Inpatient Short Form Putting on/Taking Off Lower Body Clothin - No Assistance Bathin - No Assistance Toiletin - No Assistance Putting on/Taking Off Upper Body Clothin - No Assistance Groomin - No Assistance Eatin - No Assistance CURRENT AM-PAC Activity Raw Score: 24 CURRENT AM-PAC Activity Functional Limitation/Modifier: 0.00% Currently Impaired in Daily Activity - Assessment & Plan: Patient was admitted for SOB; persistent Afib (awaiting ablation) and seen for therapy evaluation related to deficits in self-care tasks and mobility due to generalized weakness and activity tolerance deficits. Elizabeth safe to return to prior living environment from OT standpoint. No further acute care OT warranted at this time. Patient Instruction/Education this session: Learners: Patient Education provided: Plan of care Teaching method: Verbal Education/Instruction Learner response: Applies knowledge Learning preferences: Auditory Learning considerations: No barriers/ready to learn Plan for next session: N/A Acute OT Goals Notes from 04/13/2024 12:10 AM through 04/13/2024 12:10 PM Pt educated on importance of continuing self-care tasks and mobility while in acute care to reduce risk of deconditioning and pt verbalized understanding - MET 04/13/24 OT treatment consisted of the following to work and progress towards the above goal(s): OT Evaluation and Treatment Time OT Evaluation (Low) Time Entry: Evaluating Therapist: Nitza Clements OT Additional Details: OT Co-Eval/Treatment Information Co-evaluation/co-treatment performed?: Yes, simultaneous billable skilled care was necessary due tomedical complexity and functional deficits Other discipline: PT Rationale for need to co-eval/treat: (unknown functional mobility) Co-treatment goal focus: balance, endurance, coordination, cognition, strength, self-care, transfer, mobility OT Evaluation Complexity Occupational Profile and Client History: Low - brief history Assessment of Occupational Performance: Low (1-3 performance deficits) Clinical Decision/Performance Deficits: Low (problem-focused assessments w/limited treatment options) Time In: 906 Time Out: 926 Total Visit Time: 20 minutes Total Treatment Time (skilled, billable minutes): 20 minutes Assisted by during session: Cole, PT PPE used during patient interaction: gloves, facemask Patient location at end of session: bed with head of bed elevated Alarms on at end of session: RN aware Needs in reach. Upon discontinuation of Acute Care Occupational Therapy Services or patient discharge from the hospital this note represents the current Occupational Therapy Discharge Summary. [id number] Hospital course Narrative* Shelly Noyola PA-C - 04/17/2024 8:26 AM EST Discharge Summary Name: Elizabeth Persaud Age: 78 y.o. Birthday: 1945 Admit Date: 04/12/2024 10:49 PM Discharge Date: 04/17/2024 Discharge Time: > 30 min with medication reconciliation and patient education Discharge Unit: [facility] Admission Information Admitting Physician: Toña Persaud MD Discharge Information Discharge Physician: Toña Persaud MD Problem List Active Hospital Problems Diagnosis Atrial fibrillation Atypical atrial flutter Moderate COPD (chronic obstructive pulmonary disease) CHF (congestive heart failure) Hypertension Resolved Hospital Problems No resolved problems to display. Brief Summary of Hospital Course for Discharge Summary: Elizabeth Persaud is a 78 y.o. 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. Patient reports symptoms began to worsen since being taken off her flecainide by EP 3 weeks ago. She notes her SOB is worse with exertion and states, I can feel my heart beat and vibrate through my chest. Additionally endorses worsening orthopnea (sleeps with wedge pillow), cough, ~6lb weight gain, and PND. Patient also notes she recently started using her home oxygen and has not used it several years. Reports occasional chest pain, but states it is relieved when she takes her omeprazole. Perpatient, her outpatient title curator increased her PO lasix dose to 60mg BID a few weeks ago and started her on aldactone. Due to worsening symptoms, she decided to seek care at [facility]. Work-up revealed trops 8, BNP 394, EKG showed AF with RVR. Treated with two doses of IV metoprolol 5mg, Toprol XL 60mg, IV lasix 60mg x1 and transferred to [facility] for further evaluation. Upon arrival to floor, patient is in rate controlled AF with HR in 110s, asymptomatic. She reports she has been complaint with eliquis and denies any missed dosages. Denies lightheadedness, dizziness, and syncopal episodes. Patient was recently seen by [facility] EP 03/08/24 for evaluation and management of AF/atypical atrial flutter. Recommended patient would benefit from repeat EPS and ablation for AF/AFL as outpatient with tikosyn load following the ablation to maintain SR. In the meantime, her toprol XL was increased to 50mg BID and she was instructed to stop taking her flecainide. She was scheduled to have an ablationon 04/22/24 with CTPV the day prior. 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 Since that time, she was managed with AC, DCCVs and an attempted cryoablation. Patient can tell when she is in SR or AF. The predominant symptoms are palpitations and SOB. Has tried amio in the past, but was discontinued d/t worsened HAAS. Upon arrival to floor, patient is in rate controlled AF with HR in 110s, asymptomatic. She reports she has been complaint with eliquis and denies any missed dosages. EP consulted on admission. Underwent successful DCCVon 04/13 and started on tikosyn load with return to AF the following morning. Repeat DCCV 04/15 successfully converted the SR. Her toprol XL was reduced to 25mg daily for bradycardia. - Tikosyn, eliquis, toprol XL - Follow-up appointments Scheduled AF ablation on 04/22/2024 EP FORMULATOR follow up scheduled on 08/11/2024 with September AAD rx Clinic scheduled on 11/02/2024 Acute on Chronic diastolic heart failure (HFpEF) / non-ischemic cardiomyopathy / Likely tachy-mediated Likely provoked by atrial fibrillation. NT-proBNP elevated at 4.6K, physical exam significant for JVD to mid neck. Treated with IV lasix 60mg x1 prior to transfer and transitioned to orals. Repeat echo with drop in EF from 60% to 45%, likely tachy-mediated. Repeat Echo in 3 months. Patient follows local cardiology at [place] and has an appointment on 04/19. Patient wished to change care to [facility] HF clinic. I messaged Transition of care team for future clinic appointment. Wt on admission was 129lbs, and discharge wt was 127lbs. Amb referral for Heart failure navigation, pharmacy and cardiac rehabwere placed. GDMT at discharge: Diuretics: PO lasix 60mg daily SGLT2: Jardiance 10mg daily MRA: Aldactone 25mg daily ARNI or ARB: none Other HTN agent: Toprol XL 25mg daily GALINA on CKD Stage III, resolve Baseline Cr 0.8-1, Cr elevated to 1.5 on 04/15 2/2 cardiorenal. Diuretic were subsequently held and resumed upon improvement in renal function. 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 Brain MRI showed no ischemic stroke. 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 Evaluated by Neurology, recommended to continue Eliquis as well as monitor her blood pressure and cholesterol. Of note, she does have residual numbness and decreased taste to her tongue. - Continued Eliquis - Lipitor 20mg daily started this admission given high ASCVD score of 24.9% Acute respiratory insufficiency, resolved Pt reports she recently started using her home oxygen and has not used it several years. Required supplemental O2 at OSH. On RA on arrival to [facility], did not require supplemental oxygen during hospitalization. COPD, mild Follows with pulmonary at [facility]. - Continued inhaler therapies Former Nicotine Dependence - Quit in 2005, 70 pack year smoker HTN - See meds above Hyperlipidemia - Lipitor 20mg daily started this admission History of BPPV - Requiring Kan maneuvers in the past and meclizine with some relief. History of scoliosis and cervical spinal stenosis s/p fusion - Patient reports diclofenac is the only pain med that provided relief. Educated patient on risks of using NSAID with CKD and HF. PT/OT were consulted. BP 142/63 (BP Location: Right arm, BP Position: Sitting) Pulse 57 Temp 97.9 F (36.6 C) (Oral) Resp 16 Ht 1.549 m (5' 0.98) Wt 57.7 kg (127 lb 4.8 oz) SpO2 96% BMI 24.07 kg/m Smoking Status Former Physical Exam Constitutional: She appears chronically ill. Eyes: Conjunctivae are normal. Neck: No JVD present. Cardiovascular: Normal rate, regular rhythm, S1 normal and S2 normal. Pulses: Radial pulses are 1+ on the right side and 1+ on the left side. Warm and dry Pulmonary/Chest: Breath sounds normal. She has no wheezes. She has no rales. Abdominal: Soft. She exhibits no distension. Musculoskeletal: General: No edema. Cervical back: Normal range of motion. Neurological: She is alert and oriented to person, place, and time. Skin: Skin is warm and dry. Summary of last selected lab results and date obtained: Lab Results Component Value Date WBC 8.86 04/17/2024 HGB 13.0 04/17/2024 HCT 39.1 04/17/2024 PLATELET 261 04/17/2024 MCV 92.0 04/17/2024 Lab Results Component Value Date SODIUM 140 04/17/2024 POTASSIUM 4.0 04/17/2024 CHLORIDE 101 04/17/2024 CO2 30 04/17/2024 BUN 28 (H) 04/17/2024 CREATSERUM 0.87 04/17/2024 GLUCOSE 95 04/17/2024 Lab Results Component Value Date ALT 28 04/13/2024 AST 35 04/13/2024 ALKPHOS 91 04/13/2024 BILITOTAL 1.1 04/13/2024 BILIDIRECT 0.3 (H) 04/13/2024 Brief Summary of Labs for Discharge Summary: Discharge Orders AMB REFERRAL TO PHARMACY AMB REFERRAL TO HEART FAILURE CARE NAVIGATION AMB REFERRAL TO CARDIAC REHAB AMB REFERRAL TO ANTI-ARRHYTHMIA CLINIC Current Outpatient Meds: Medication List for when you go home START taking these medications Morning Afternoon Evening Bedtime As Needed Atorvastatin 20 MG TABS Take 1 tablet by mouth at bedtime. Commonly known as: LIPITOR Last time this was given: 20 mg on April 16, 2024 8:19 PM Dofetilide 125 MCG capsule Take 1 capsule by mouth every 12 hours. If 3 doses are missed, contact the prescribing cardiologistas soon as possible. Commonly known as: TIKOSYN Last time this was given: 125 mcg on April 17, 2024 9:14 AM CHANGE how you take these medications Morning Afternoon Evening Bedtime As Needed furOSEmide 20 MG TABS Take 3 tablets by mouth daily. Commonly known as: LASIX What changed: The strength you have reported taking of this medication has changed How often you have reported taking this medication has changed Last time this was given: 60 mg on April 17, 2024 9:14 AM Metoprolol succinate 25 MG tablet XL Take 1 tablet by mouth daily. Commonly known as: TOPROL-XL What changed: The strength you have reported taking of this medication has changed The quantity you have reported taking of this medication has changed How often you have reported taking this medication has changed additional instructions Last time this was given: 25 mg on April 17, 2024 10:01 AM CONTINUE taking these medications Morning Afternoon Evening Bedtime As Needed apixaban 5 MG TABS Take 1 tablet by mouth every 12 hours. Commonly known as: ELIQUIS Last time this was given: 5 mg on April 17, 2024 9:14 AM CALCIUM 500 + D PO Take 1 tablet by mouth daily. CALCIUM MAGNESIUM ZINC PO Take 1 tablet by mouth daily. fluticasone 50 MCG/ACT SUSP nasal spray 2 sprays by Nasal route daily. Commonly known as: FLONASE Last time this was given: 2 sprays on April 17, 2024 9:16 AM Ipratropium 17 MCG/ACT AERS inhaler Inhale 2 puffs every 6 hours. max 12 inhalations/day Commonly known as: ATROVENT HFA Jardiance 10 MG TABS Take 1 tablet by mouth daily. Generic drug: Empagliflozin Melatonin Gummies 5 MG CHEW Chew 2 tablets at bedtime. Last time this was given: Ask your nurse or doctor MULTI-DAY PO Take 1 tablet by mouth daily. Last time this was given: 1 tablet on April 17, 2024 9:14 AM Nystatin [id number] UNIT/ML oral suspension Swish and swallow 5 mL 4 times daily. Commonly known as: MYCOSTATIN Last time this was given: 500,000 Units on April 14, 2024 9:09 AM omeprazole [address] capsule Take 1 capsule by mouth daily. Commonly known as: PRILOSEC Potassium Chloride ER 20 MEQ tab ER tablet Take 1 tablet by mouth daily. Take with furosemide. May need to take twice a day for shortness of breath. Last time this was given: Ask your nurse or doctor PROBIOTIC-PREBIOTIC PO Take 1 capsule by mouth daily. Spironolactone 25 MG TABS Take 1 tablet by mouth daily. Commonly known as: ALDACTONE Last time this was given: 25 mg on April 17, 2024 9:14 AM Trelegy Ellipta 100-62.5-25 MCG/ACT AEPB inhaler Inhale 1 puff daily. Generic drug: xgshcfrcjxf-xtwwccjpy-Mtqkat Tylenol 8 Hour Arthritis Pain 650 MG tab ER Take 1 tablet by mouth every 6 hours as needed for Mild Pain. Last time this was given: Ask your nurse or doctor Generic drug: acetaminophen Follow-up: Other [facility]- Pulmonary & Cardiac Rehab [id number] [facility] [id number] Follow up You've been referred to cardiac rehab, Please call if you have any questions Upcoming Appointments (up to five)-Some appointments for Medical Center outpatient clinics or diagnostic testing locations are not displayed below Provider Department Dept Phone 04/20/2024 9:30 AM [facility], [facility] Pharmacy Clinic Telehealth Arrive at: THIS IS A VIDEO VISIT, DO NOT GO TO THE CLINIC. [phone] 04/21/2024 3:35 PM [facility] Jennifer Arrive at: Arrive to [facility] Registration Desk [phone] 04/21/2024 4:20 PM [facility] Cardiovascular Imaging Lab [facility] [phone] 08/11/2024 2:00 PM [facility] [place] Arrive at: Arrive to 1st Floor Registration [phone] 11/02/2024 10:00 AM [facility] Photoengraving Machine Operator/Tender Center [facility] Arrive at: Arrive to [facility] Registration Desk [phone] Associated attestation - Toña Persaud MD - 04/17/2024 4:59 PM EST Attending Physician Note I saw and evaluated the patient today with the advanced practice provider on heart failure rounds. I provided a substantive portion of the care for this patient. I personally performed all aspected of the medical decision making for this encounter. We discussed the symptoms and exam findings, results of testing and therapeutic plan. I have reviewed and verified this documentation including the history, physical examination, and medical decisions as outlined in the progress note, and it accurately reflects our care. Mrs. Persaud is a 78 yo F with a past medical history of persistent atrial fibrillation as well as prior typical atrial flutter s/p ablation and multiple cardioversions as well as HFpEF, TIA, and COPDwho presented with atrial fibrillation with RVR with worsening dyspnea. AF and HDS today. HR in 50-60s except when sleeping. Good response to PO diuretic yesterday to maintain euvolemia. Plan to discharge today. Plan per hospital problem below. #Persistent Atrial Fibrillation with RVR: EP followed during admission. S/p DCCV x2. Started on tikosyn 250 mcg BID for management. Qtc 500 msecs after 6th dose. Decrease metoprolol succinate 25 mg daily given sinus bradycardia to high 40s. Continue home DOAC. Plan for outpatient ablation in mid April (04/22). #Acute on Chronic Heart Failure: Likely provoked by atrial fibrillation. Patient with historically preserved EF with now mildly reduced EF on TTE (45%). Likely tachy-mediated. On spironolactone, SGLT-2 inhibitor, and beta karson. Lasix 60 mg daily (increased from home diuretic of 40 mg daily). Telehealth appointment on 04/20 for follow up with [facility] team. Local cardiology follow up next Friday per patient. Toñapilar Persaud Computer Processing Scheduler Cardiovascular Medicine Heart Failure and Transplant Medicine [facility] [id number] documented in this encounterU [facility] Plan of care note* Plan of Care - Kathy Hernandez RN - 04/17/2024 12:25 AM EST Problem: Adult Inpatient Plan of Care Goal: Plan of Care Review Outcome: Progressing Goal: Patient-Specific Goal (Individualized) Outcome: Progressing Goal: Absence of Hospital-Acquired Illness or Injury Outcome: Progressing Goal: Optimal Comfort and Wellbeing Outcome: Progressing Plan of care reviewed and updated with patient: Vital signs every 4 hrs, monitoring intake & output every 8 hrs, assess pain every 4 hrs & medicate prn, hourly rounding, quiet at night hospital initiative from 10 pm to 5 am, am labs, will report any abnormal values to physician in timely manner & replace electrolytes prn. Patient demonstrates an understanding, and denies any questions. [facility]12-07-2024 Miscellaneous Notes* Plan of Care - Kathy Hernandez RN - 04/17/2024 12:25 AM EST Problem: Adult Inpatient Plan of Care Goal: Plan of Care Review Outcome: Progressing Goal: Patient-Specific Goal (Individualized) Outcome: Progressing Goal: Absence of Hospital-Acquired Illness or Injury Outcome: Progressing Goal: Optimal Comfort and Wellbeing Outcome: Progressing Plan of care reviewed and updated with patient: Vital signs every 4 hrs, monitoring intake & output every 8 hrs, assess pain every 4 hrs & medicate prn, hourly rounding, quiet at night hospital initiative from 10 pm to 5 am, am labs, will report any abnormal values to physician in timely manner & replace electrolytes prn. Patient demonstrates an understanding, and denies any questions. * Plan of Care - Natalee Vallejo RN - 04/16/2024 4:00 PM EST Problem: Adult Inpatient Plan of Care Goal: Plan of Care Review Outcome: Progressing Goal: Patient-Specific Goal (Individualized) Outcome: Progressing Goal: Absence of Hospital-Acquired Illness or Injury Outcome: Progressing Goal: Optimal Comfort and Wellbeing Outcome: Progressing Goal: Readiness for Transition of Care Outcome: Progressing Problem: PT - General Goals Goal: Ambulation - Patient will ambulate 400 feet with independence, with/out an assistive device to improve ability to safely navigate home and community. Outcome: Progressing Goal: Stairs - Patient will ascend/descend 1 flight of stairs with supervision, without an assistive device, and single railing(s) to improve ability to safely navigate home and community. Outcome: Progressing * Plan of Care - Flores Gill RN - 04/16/2024 12:20 PM EST Problem: Adult Inpatient Plan of Care Goal: Plan of Care Review Outcome: Progressing Goal: Patient-Specific Goal (Individualized) Outcome: Progressing Goal: Absence of Hospital-Acquired Illness or Injury Outcome: Progressing Goal: Optimal Comfort and Wellbeing Outcome: Progressing Goal: Readiness for Transition of Care Outcome: Progressing * Plan of Care - BRITANY Cam - 04/15/2024 4:41 PM EST ELECTROPHYSIOLOGY UPDATE NOTE Elizabeth Persaud is a 78 year old female with persistent AF who presented on 04/12/2024 as a transfer from [facility] with worsening SOB and palpitations. EP was consulted for management of AF. ASSESSMENT AND PLAN Persistent atrial fibrillation -s/p cryoballoon ablation about 10 years ago -s/p multiple cardioversions -Previous AAD therapy: Flecainide and Amiodarone -Holter monitor 05/2023: AF burden 99.9% -scheduled for AF ablation with Dr. Hernandez on 04/22/2024 -presented in AF w/RVR. -EP consulted. Plan for Tikosyn drug load with DCCV -S/P successful cardioversion on 04/13/2024, however, went back into A-fib w/RVR 04/14/2024 around 0500 -S/P successful repeat DCCV 04/15/2024 after 4th dose. -ECG: SB / VR 54 / FARZANEH 138 / QRS 94 / QT/QTc 458/434 -Will continue with dose #5 Tikosyn 125mcg PO at 2000. -Continue Toprol-XL for rate control -Chads-Vasc score 7, continue Eliquis for stroke risk reduction -EP FORMULATOR follow-up in 3-4 months -Referral to antiarrhythmic clinic in 6 months * Nursing Notes - Shi Dumont RN - 04/15/2024 12:10 AM EST Notified RENEE Jarquin Pt had a 7 beat run Vtach. Will obtain labs. No new orders at this time. * Nursing Notes - Shi Dumont RN - 04/14/2024 11:21 PM EST Notified RENEE Jarquin Pt appears to have been afib RVR all day with HR from 120-130s. Pt received 75mg lopressor at 2009. Beginning of shift HR was 130s-150s. Right now it fluctuates from 110-130's. Tikosyn 125 mcg was given at 2054. Pt Current EKG reads afib RVR. Current QTC is 512. * Nursing Notes - Shi Dumont RN - 04/14/2024 6:35 AM EST Notified RENEE Jarquin Pt is currently in Afib RVR. Fluctuating 100-150s. She was sleeping. Pt was cardioverted yesterday with a shock to sinus rhythm . EKG confirms Afib RVR. Pt reports chestfeeling heavy, feeling palpitations, feeling SOB. She does not appear in distress. O2 sat 96% RA. Per PA administer 50 mg Metoprolol. Will continue to monitor. * Plan of Care - Marcelino Matthew PT - 04/13/2024 9:27 AM EST Problem: PT - General Goals Goal: Ambulation - Patient will ambulate 400 feet with independence, with/out an assistive device to improve ability to safely navigate home and community. Outcome: Progressing Goal: Stairs - Patient will ascend/descend 1 flight of stairs with supervision, without an assistive device, and single railing(s) to improve ability to safely navigate home and community. Outcome: Progressing * Plan of Care - Annelise Hoskins RN - 04/13/2024 2:02 AM EST Problem: Adult Inpatient Plan of Care Goal: Plan of Care Review Outcome: Progressing Problem: Adult Inpatient Plan of Care Goal: Absence of Hospital-Acquired Illness or Injury Outcome: Progressing Problem: Adult Inpatient Plan of Care Goal: Readiness for Transition of Care Outcome: Progressing * Nursing Notes - David Castellanos RN - 04/13/2024 1:12 AM EST Nursing Note @ 0112 Placed 20g 1 in cath PIV in right anterior forearm via ultrasound. PIV flushes and draws. Patient tolerated well. * Nursing Notes - Annelise Hoskins RN - 04/13/2024 12:25 AM EST On admission [facility] @, from outside facility a dual RN initial assessment of skin conditionwas performed by Annelise Rodriguez RN and Ad Garcia RN Skin Assessment: WDL Smith Score: 22 LDA Added: Take Picture of Wound: Wound Consult in place: Dressings/Treatment: documented in this [facility] Plan of care note* Plan of Care - Natalee Vallejo RN - 04/16/2024 4:00 PM EST Problem: Adult Inpatient Plan of Care Goal: Plan of Care Review Outcome: Progressing Goal: Patient-Specific Goal (Individualized) Outcome: Progressing Goal: Absence of Hospital-Acquired Illness or Injury Outcome: Progressing Goal: Optimal Comfort and Wellbeing Outcome: Progressing Goal: Readiness for Transition of Care Outcome: Progressing Problem: PT - General Goals Goal: Ambulation - Patient will ambulate 400 feet with independence, with/out an assistive device to improve ability to safely navigate home and community. Outcome: Progressing Goal: Stairs - Patient will ascend/descend 1 flight of stairs with supervision, without an assistive device, and single railing(s) to improve ability to safely navigate home and community. Outcome: Progressing [facility]12-06-2024 Plan of care note* Plan of Care - Flores Gill RN - 04/16/2024 12:20 PM EST Problem: Adult Inpatient Plan of Care Goal: Plan of Care Review Outcome: Progressing Goal: Patient-Specific Goal (Individualized) Outcome: Progressing Goal: Absence of Hospital-Acquired Illness or Injury Outcome: Progressing Goal: Optimal Comfort and Wellbeing Outcome: Progressing Goal: Readiness for Transition of Care Outcome: Progressing [facility]12-05-2024 Plan of care note* Plan of Care - BRITANY Cam - 04/15/2024 4:41 PM EST ELECTROPHYSIOLOGY UPDATE NOTE Elizabeth Persaud is a 78 year old female with persistent AF who presented on 04/12/2024 as a transfer from [facility] with worsening SOB and palpitations. EP was consulted for management of AF. ASSESSMENT AND PLAN Persistent atrial fibrillation -s/p cryoballoon ablation about 10 years ago -s/p multiple cardioversions -Previous AAD therapy: Flecainide and Amiodarone -Holter monitor 05/2023: AF burden 99.9% -scheduled for AF ablation with Dr. Hernandez on 04/22/2024 -presented in AF w/RVR. -EP consulted. Plan for Tikosyn drug load with DCCV -S/P successful cardioversion on 04/13/2024, however, went back into A-fib w/RVR 04/14/2024 around 0500 -S/P successful repeat DCCV 04/15/2024 after 4th dose. -ECG: SB / VR 54 / FARZANEH 138 / QRS 94 / QT/QTc 458/434 -Will continue with dose #5 Tikosyn 125mcg PO at 1999. -Continue Toprol-XL for rate control -Chads-Vasc score 7, continue Eliquis for stroke risk reduction -EP FORMULATOR follow-up in 3-4 months -Referral to antiarrhythmic clinic in 6 months [facility] Work Phone: [phone] Nurse Note* Nursing Notes - Shi Dumont RN - 04/15/2024 12:10 AM EST Notified RENEE Jarquin Pt had a 7 beat run Vtach. Will obtain labs. No new orders at this time. [facility]12-04-2024 Nurse Note* Nursing Notes - Shi Dumont RN - 04/14/2024 11:21 PM EST Notified RENEE Jarquin Pt appears to have been afib RVR all day with HR from 120-130s. Pt received 75mg lopressor at 2009. Beginning of shift HR was 130s-150s. Right now it fluctuates from 110-130's. Tikosyn 125 mcg was given at 2054. Pt Current EKG reads afib RVR. Current QTC is 512. [facility]12-04-2024 Nurse Note* Nursing Notes - Shi Dumont RN - 04/14/2024 6:35 AM EST Notified RENEE Jarquin Pt is currently in Afib RVR. Fluctuating 100-150s. She was sleeping. Pt was cardioverted yesterday with a shock to sinus rhythm . EKG confirms Afib RVR. Pt reports chestfeeling heavy, feeling palpitations, feeling SOB. She does not appear in distress. O2 sat 96% RA. Per PA administer 50 mg Metoprolol. Will continue to monitor. [facility]12-03-2024 Hospital Discharge instructions* Discharge Instructions* BRITANY Azevedo - 04/13/2024 11:09 AM EST Images from the original note were not included. You qualify for the [facility] Transitions of Care, Heart Failure (HF) Care Navigation Program. This may include a telehealth visit with a pharmacist, nurse navigation phone calls, scheduling assistance as it pertains to your heart failure follow up, and psychosocial support for up to 30 days post-discharge, or until you are seen in your hospital follow up clinic appointment by the provider managing your heart failure. If you were scheduled for a pharmacy transitions telehealth visit this will be your initial call with the care navigation program. If you were not scheduled for a pharmacy visit, one of our nurse navigators will be contacting you in the first week after you are discharged from the hospital for your initial encounter. If you have questions pertaining to your hospital heart failure care plan, or need scheduling assistance for your pharmacy or heart failure follow up appointment, please contact the heart transitions care team: [phone]. - Opt 1: Scheduling your heart failure hospital follow up or pharmacy transitions visit - Opt 2: Non-urgent clinical questions pertaining to your heart failure hospital care plan - Opt 3: Social Work needs Please note, program hours are Friday - Friday 8am - 4pm ET. Please allow up to 2 business days forreturn call. For other heart scheduling needs please contact [phone], OPT 1. For urgent medical needs during evening, weekend or holiday's please call [phone] Ask the brazing furnace operator to page the on-call doctor for the service that was responsible for your care while you were in the hospital. For medical emergencies please dial 911 For more information about Heart Failure please visit this link for an online interactive workbook or QR code below: [email or web address] * Discharge Instr - Activity* Shelly Noyola PA-C - 04/17/2024 11:32 AM EST Activity Advance your activity as you are able. Space your activities throughout the day and allow for rest periods to limit feeling tired or short of breath. Call your doctor and seek medical help right awayif you have chest pain, shortness of breath that gets worse, a cough that gets worse or you cough up blood. Follow Cardiac Rehab guidelines for activity progression. We encourage your take part in out-patient cardiac rehab program. * Discharge Instr - Diet* Shelly Noyola PA-C - 04/17/2024 11:32 AM EST Diet: Your doctor has recommended that you follow these diet instructions at home. Refer to the patient education materials you received during your hospital stay. If you would like more nutrition counseling, ask your doctor about making an appointment with an outpatient dietitian. Heart Healthy Diet to promote heart health. Choose healthy fats and oils such as canola or olive oil. Limit high cholesterol foods. Avoid added salt and caffeine in your foods. Controlled Carbohydrate Diet This diet controls carbohydrate intake to help manage and maintain consistent blood glucose levels.Simple sugars are limited and carbohydrate intake is balanced throughout the day. Avoid adding saltto your food and use heart healthy fats such as canola or olive oil. Cardiac-Very Low Sodium -Limit your salt or sodium intake each day to between 2010-3090 mg to help manage high blood pressure and limit fluid build up if you have heart failure. Your doctor has recommended that you follow these diet instructions at home. Refer to the patient education materials youreceived during your hospital stay. If you would like more nutrition counseling, ask your doctor about making an appointment with an outpatient dietitian. Continue to maintain a diet low in fat and cholesterol. Fluid Restriction Your doctor has ordered a fluid restriction to prevent fluid build up in your body because of heartor kidney problems. You should limit your fluids to no more than 2 liters (2000ml) daily, unless otherwise directed by your National Business Director. Be sure to include all fluids in your daily total. Daily Weights Contact your title curator with a weight gain of 2 lbs in a 24 hr period or 5 lbs in one week * Discharge Instr - Notify* Shelly Noyola PA-C - 04/17/2024 11:32 AM EST Notify Your Doctor or Nurse if you have any of the following: Respiratory Changes- Call your doctor or nurse if you have more shortness of breath Unrelieved Pain - Call your doctor or nurse if your pain gets worse or is not eased 1 hour after taking your pain medicine. Symptoms of Stroke- Call for medical help right away if you have any signs of a stroke such as numbness or muscle weakness, confusion, memory problems or problems speaking. Signs of Infection- Call your doctor or nurse if you have a fever, chills, nausea, vomiting or diarrhea. Weight Monitoring Weigh yourself every morning wearing similar clothes. Record your weight on the weight calendar found in your Living with Heart Failure binder. Call your healthcare provider if you gain 2 pounds in one day or 5 pounds in one week. [facility] Plan of care note* Plan of Care - Marcelino Matthew, PT - 04/13/2024 9:27 AM EST Problem: PT - General Goals Goal: Ambulation - Patient will ambulate 400 feet with independence, with/out an assistive device to improve ability to safely navigate home and community. Outcome: Progressing Goal: Stairs - Patient will ascend/descend 1 flight of stairs with supervision, without an assistive device, and single railing(s) to improve ability to safely navigate home and community. Outcome: Progressing [facility]12-03-[facility] Consult note* Roz Clarke MD - 04/13/2024 9:17 AM ESTAssociated Order(s): IP CONSULT TO CARDIOLOGY - EP ELECTROPHYSIOLOGY CONSULT NOTE IMPRESSION AND RECOMMENDATIONS Elizabethnay Persaud is a 78 y.o. female with a PMH of persistent AF s/p ablation (2015) and multiple DCCVs (most recently 12/2023), atypical AFL, HFpEF/NICM (EF 60%), TIA (07/2022), COPD, nicotine dependence in remission, admitted to [facility] and the EP consult service has been consulted by Dr. Persaud to assist with management of AF/AFL RVR, specifically consideration of ablation. Impression: Persistent atrial fibrillation with RVR s/p unsuccessful ablation (2015), multiple DCCVs Atypical atrial flutter HFpEF/NICM TIA COPD Recommendations: Start Tikosyn load (ordered) Obtain ECG 2-3 hours after Tikosyn administered (ordered) Continue Toprol XL 50 mg BID Consented for DCCV today (04/13) pending lab availability, please keep NPO Ok to switch back to DOAC and discontinue heparin gtt, especially important that DOAC is not interrupted in the 30 day period following cardioversion Follow up as scheduled for planned ablation 04/22/[address] Adhikari. We will follow. Please page with questions. Roz Clarke MD EM/IM PGY5 Subjective HISTORY OF PRESENT ILLNESS Elizabeth Persaud is a 78 y.o. female with a PMH of persistent AF s/p ablation (2015) and multiple DCCVs (most recently 12/2023), atypical AFL, HFpEF/NICM (EF 60%), TIA (07/2022), COPD, nicotine dependence in remission, admitted to [facility] and the EP consult service has been consulted by Dr. Persaud to assist with management of AF/AFL RVR, specifically consideration of ablation. Patient presented to [facility] ED with worsening HAAS and palpitations x3 weeks. Found to be in Afib RVR, treated with metoprolol 5 mg IV x2, Toprol XL 60, and received IV lasix 60 mg x1. On arrival to [facility] noted to be in AF with rates controlled in the 110s. Patient established with [facility] EP, Dr. Hernandez, 03/08/2024. She has previously history of unsuccessfulAF ablation in 2015. Has also undergone DCCV x4, most recently 12/2023. She was previously managed on amiodarone but experiences worsening SOB so was switched to flecainide in addition to metoprolol 25 mg BID. At her EP appointment in February she was noted to be in atypical flutter rate 102. Given her difficulty with maintaining NSR plan was made for ablation with subsequent Tikosyn load 04/22/2024. She was also instructed to stop her flecainide and increase her metoprolol from 25 mg BID to 50 mg BID in the interim. She reports she has felt more HAAS and palpitations since stopping flecainide. She takes Eliquis for stroke ppx and is adamant that she has not missed any doses in the last 30 days. She was placed on a heparin gtt and DOAC held on admission. PAST MEDICAL, SURGICAL, FAMILY, AND SOCIAL HISTORY No past medical history on file. No past surgical history on file. No family history on file. Social History Socioeconomic History Marital status: Single Spouse name: Not on file Number of children: Not on file Years of education: Not on file Highest education level: Not on file Occupational History Not on file Tobacco Use Smoking status: Former Types: Cigarettes Start date: 2008 Smokeless tobacco: Not on file Vaping Use Vaping status: Never Used Substance and Sexual Activity Alcohol use: Not Currently Drug use: Never Sexual activity: Not on file Other Topics Concern Not on file Social History Narrative Not on file Social Determinants of Health Financial Resource Strain: Low Risk (04/15/2022) Received from [facility] Overall Financial Resource Strain (CARDIA) Difficulty of Paying Living Expenses: Not hard at all Food Insecurity: No Food Insecurity (04/15/2022) Received from [facility] Hunger Vital Sign Worried About Running Out of Food in the Last Year: Never true Ran Out of Food in the Last Year: Never true Transportation Needs: No Transportation Needs (04/15/2022) Received from [facility] PRAPARE - Transportation Lack of Transportation (Medical): No Lack of Transportation (Non-Medical): No Physical Activity: Sufficiently Active (04/15/2022) Received from [facility] Exercise Vital Sign Days of Exercise per Week: 5 days Minutes of Exercise per Session: 150+ min Stress: No Stress Concern Present (04/15/2022) Received from [facility] [place] [employer] - Occupational Stress Questionnaire Feeling of Stress : Only a little Social Connections: Socially Isolated (04/15/2022) Received from [facility] Social Connection and Isolation Panel [NHANES] Frequency of Communication with Friends and Family: Three times a week Frequency of Social Gatherings with Friends and Family: Once a week Attends Jehovah'S Witness Services: Never Active Member of Clubs or Organizations: No Attends Club or Organization Meetings: Never Marital Status: Intimate Partner Violence: Not on file Housing Stability: Unknown (04/15/2022) [facility] Housing Stability Vital Sign Unable to Pay for Housing in the Last Year: No Number of Places Lived in the Last Year: Not on file Unstable Housing in the Last Year: No Allergies as of 04/12/2024 - Reviewed 04/12/2024 Allergen Reaction Noted *adhesive tape 03/08/2024 Codeine 03/08/2024 Diltiazem 03/08/2024 Etodolac 03/08/2024 Meloxicam 03/08/2024 Naproxen 03/08/2024 Phenylalanine 03/08/2024 Ranitidine 03/08/2024 Trazodone 03/08/2024 REVIEW OF SYSTEMS A 14-point review of systems is negative except for what is mentioned to be positive elsewhere. Objective OBJECTIVE Temp: [97.5 F (36.4 C)-97.8 F (36.6 C)] 97.8 F (36.6 C) Pulse (Heart Rate): [89-116] 103 Resp Rate: [18-20] 18 BP: (110-140)/(61-85) 110/69 O2 Sat (%): [92 %-98 %] 92 % Weight: [58.5 kg (129 lb)-58.6 kg (129 lb 1.6 oz)] 58.6 kg (129 lb 1.6 oz) O2 Device: room air (04/13/24 0907) Gen: NAD, resting comfortably CV: S1/S2, irreg/irreg, no m/r/g, peripheral pulses intact Resp: CTAB, no increased WOB GI: soft, NT, ND, +BS Neuro: A/Ox4, no focal deficits knee Psych: appropriate mood and affect DATA REVIEW Recent Labs 04/13/24 0005 04/13/24 0712 HGB 14.7 13.9 CREATSERUM 1.00 -- ECG: AF RVR Telemetry: AF RVR Echo: Results for orders placed in visit on 12/31/22 ECHOCARDIOGRAM (OUTSIDE) (Final) Cath: No results found for this or any previous visit from the past 3650 days. Associated attestation - Landon Adhikari MD - 04/13/2024 2:15 PM EST Attending Physician Note I have personally interviewed and evaluated this patient with the Fellow/FORMULATOR/Resident. I have reviewed the history and examination and edited these where appropriate in the note above. [place] with the medical decision and components of the note. Pt alert and oriented without complaints. Mukesh Adhikari MD Electrophysiologists Dietetics Professor of Internal Medicine [facility] [phone] [facility] Work Phone: 1(193) 577-437912-03-2024 Consult note* Roz Clarke MD - 04/13/2024 9:17 AM ESTAssociated Order(s): IP CONSULT TO CARDIOLOGY - EP ELECTROPHYSIOLOGY CONSULT NOTE IMPRESSION AND RECOMMENDATIONS Elizabeth Persaud is a 78 y.o. female with a PMH of persistent AF s/p ablation (2015) and multiple DCCVs (most recently 12/2023), atypical AFL, HFpEF/NICM (EF 60%), TIA (07/2022), COPD, nicotine dependence in remission, admitted to [facility] and the EP consult service has been consulted by Dr. Persaud to assist with management of AF/AFL RVR, specifically consideration of ablation. Impression: Persistent atrial fibrillation with RVR s/p unsuccessful ablation (2015), multiple DCCVs Atypical atrial flutter HFpEF/NICM TIA COPD Recommendations: Start Tikosyn load (ordered) Obtain ECG 2-3 hours after Tikosyn administered (ordered) Continue Toprol XL 50 mg BID Consented for DCCV today (04/13) pending lab availability, please keep NPO Ok to switch back to DOAC and discontinue heparin gtt, especially important that DOAC is not interrupted in the 30 day period following cardioversion Follow up as scheduled for planned ablation 04/22/[address] Adhikari. We will follow. Please page with questions. Roz Clarke MD EM/IM PGY5 Subjective HISTORY OF PRESENT ILLNESS Elizabeth Persaud is a 78 y.o. female with a PMH of persistent AF s/p ablation (2015) and multiple DCCVs (most recently 12/2023), atypical AFL, HFpEF/NICM (EF 60%), TIA (07/2022), COPD, nicotine dependence in remission, admitted to [facility] and the EP consult service has been consulted by Dr. Persaud to assist with management of AF/AFL RVR, specifically consideration of ablation. [facility] with worsening HAAS and palpitations x3 weeks. Found to be in Afib RVR, treated with metoprolol 5 mg IV x2, Toprol XL 60, and received IV lasix 60 mg x1. On arrival to [facility] noted to be in AF with rates controlled in the 110s. Patient established with [facility] EP, Dr. Hernandez, 03/08/2024. She has previously history of unsuccessfulAF ablation in 2016. Has also undergone DCCV x4, most recently 12/2023. She was previously managed on amiodarone but experiences worsening SOB so was switched to flecainide in addition to metoprolol 25 mg BID. At her EP appointment in February she was noted to be in atypical flutter rate 102. Given her difficulty with maintaining NSR plan was made for ablation with subsequent Tikosyn load 04/22/2024. She was also instructed to stop her flecainide and increase her metoprolol from 25 mg BID to 50 mg BID in the interim. She reports she has felt more HAAS and palpitations since stopping flecainide. She takes Eliquis for stroke ppx and is adamant that she has not missed any doses in the last 30 days. She was placed on a heparin gtt and DOAC held on admission. PAST MEDICAL, SURGICAL, FAMILY, AND SOCIAL HISTORY No past medical history on file. No past surgical history on file. No family history on file. Social History Socioeconomic History Marital status: Single Spouse name: Not on file Number of children: Not on file Years of education: Not on file Highest education level: Not on file Occupational History Not on file Tobacco Use Smoking status: Former Types: Cigarettes Start date: 2008 Smokeless tobacco: Not on file Vaping Use Vaping status: Never Used Substance and Sexual Activity Alcohol use: Not Currently Drug use: Never Sexual activity: Not on file Other Topics Concern Not on file Social History Narrative Not on file Social Determinants of Health Financial Resource Strain: Low Risk (04/15/2022) Received from [facility] Overall Financial Resource Strain (CARDIA) Difficulty of Paying Living Expenses: Not hard at all Food Insecurity: No Food Insecurity (04/15/2022) Received from [facility] Hunger Vital Sign Worried About Running Out of Food in the Last Year: Never true Ran Out of Food in the Last Year: Never true Transportation Needs: No Transportation Needs (04/15/2022) Received from [facility] PRAPARE - Transportation Lack of Transportation (Medical): No Lack of Transportation (Non-Medical): No Physical Activity: Sufficiently Active (04/15/2022) Received from [facility] Exercise Vital Sign Days of Exercise per Week: 5 days Minutes of Exercise per Session: 150+ min Stress: No Stress Concern Present (04/15/2022) Received from [facility] [place] [employer] - Occupational Stress Questionnaire Feeling of Stress : Only a little Social Connections: Socially Isolated (04/15/2022) Received from [facility] Social Connection and Isolation Panel [NHANES] Frequency of Communication with Friends and Family: Three times a week Frequency of Social Gatherings with Friends and Family: Once a week Attends Jehovah'S Witness Services: Never Active Member of Clubs or Organizations: No Attends Club or Organization Meetings: Never Marital Status: Intimate Partner Violence: Not on file Housing Stability: Unknown (04/15/2022) Received from [facility] Housing Stability Vital Sign Unable to Pay for Housing in the Last Year: No Number of Places Lived in the Last Year: Not on file Unstable Housing in the Last Year: No Allergies as of 04/12/2024 - Reviewed 04/12/2024 Allergen Reaction Noted *adhesive tape 03/08/2024 Codeine 03/08/2024 Diltiazem 03/08/2024 Etodolac 03/08/2024 Meloxicam 03/08/2024 Naproxen 03/08/2024 Phenylalanine 03/08/2024 Ranitidine 03/08/2024 Trazodone 03/08/2024 REVIEW OF SYSTEMS A 14-point review of systems is negative except for what is mentioned to be positive elsewhere. Objective OBJECTIVE Temp: [97.5 F (36.4 C)-97.8 F (36.6 C)] 97.8 F (36.6 C) Pulse (Heart Rate): [89-116] 103 Resp Rate: [18-20] 18 BP: (110-140)/(61-85) 110/69 O2 Sat (%): [92 %-98 %] 92 % Weight: [58.5 kg (129 lb)-58.6 kg (129 lb 1.6 oz)] 58.6 kg (129 lb 1.6 oz) O2 Device: room air (04/13/24 0907) Gen: NAD, resting comfortably CV: S1/S2, irreg/irreg, no m/r/g, peripheral pulses intact Resp: CTAB, no increased WOB GI: soft, NT, ND, +BS Neuro: A/Ox4, no focal deficits knee Psych: appropriate mood and affect DATA REVIEW Recent Labs 04/13/24 0005 04/13/24 0712 HGB 14.7 13.9 CREATSERUM 1.00 -- ECG: AF RVR Telemetry: AF RVR Echo: Results for orders placed in visit on 12/31/22 ECHOCARDIOGRAM (OUTSIDE) (Final) Cath: No results found for this or any previous visit from the past 3650 days. Associated attestation - Landon Adhikari MD - 04/13/2024 2:15 PM EST Attending Physician Note I have personally interviewed and evaluated this patient with the Fellow/FORMULATOR/Resident. I have reviewed the history and examination and edited these where appropriate in the note above. Iagree with the medical decision and components of the note. Pt alert and oriented without complaints. Mukesh Adhikari MD Electrophysiologists Dietetics Professor of Internal Medicine [facility] [phone] [facility] Plan of care note* Plan of Care - Annelise Hoskins RN - 04/13/2024 2:02 AM EST Problem: Adult Inpatient Plan of Care Goal: Plan of Care Review Outcome: Progressing Problem: Adult Inpatient Plan of Care Goal: Absence of Hospital-Acquired Illness or Injury Outcome: Progressing Problem: Adult Inpatient Plan of Care Goal: Readiness for Transition of Care Outcome: Progressing [facility]12-03-2024 Nurse Note* Nursing Notes - David Castellanos RN - 04/13/2024 1:12 AM EST Nursing Note @ 0112 Placed 20g 1 in cath PIV in right anterior forearm via ultrasound. PIV flushes and draws. Patient tolerated well. [facility]12-03-2024 Nurse Note* Nursing Notes - Annelise Ng RN - 04/13/2024 12:25 AM EST On admission to [address] [place] [address] @, from outside facility a dual RN initial assessment of skin conditionwas performed by Annelise Rodriguez RN and Ad Garcia RN Skin Assessment: WDL Smith Score: 22 LDA Added: Take Picture of Wound: Wound Consult in place: Dressings/Treatment: [facility]12-02-2024 History and physical note* Rica Schulz PA-C - 04/12/2024 8:36 PM EST Images from the original note were not included. Heart Failure 2/Advanced Heart Failure HISTORY AND PHYSICAL IDENTIFYING INFORMATION PATIENT: Elizabeth Persaud ADMIT DATE: 04/12/2024 TIME OF EVALUATION: 04/13/2024 3:43 AM HISTORIAN: Patient and EMR Plan of Care: - Consult placed to EP for ablation - Ordered CTPV to r/o clot and assess anatomy prior to ablation - Hold eliquis, bridge with heparin gtt - NPO at midnight - Holding SGLT2i for possible procedure - Consider repeat echo when in NSR (last echo in 2022) - Plan to start statin this admission given high ASCVD score of 24.9% - ReDs vest reading ordered for AM > 45 min spent with patient, reviewing pertinent information, and discussing plan of care with the multidisciplinary team. CHIEF COMPLAINT SOB HISTORY OF PRESENT ILLNESS Elizabeth Persaud is a 78 y.o. 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. Patient reports symptoms began to worsen since being taken off her flecainide by EP 3 weeks ago. She notes her SOB is worse with exertion and states, I can feel my heart beat and vibrate through my chest. Additionally endorses worsening orthopnea (sleeps with wedge pillow), cough, ~6lb weight gain, and PND. Patient also notes she recently started using her home oxygen and has not used it several years. Reports occasional chest pain, but states it is relieved when she takes her omeprazole. Perpatient, her outpatient title curator increased her PO lasix dose to 60mg BID a few weeks ago and started her on aldactone. Due to worsening symptoms, she decided to seek care at [facility]. Work-up revealed trops 8, BNP 394, EKG showed AF with RVR. Treated with two doses of IV metoprolol 5mg, Toprol XL 60mg, IV lasix 60mg x1 and transferred to [facility] for further evaluation. Upon arrival to floor, patient is in rate controlled AF with HR in 110s, asymptomatic. She reports she has been complaint with eliquis and denies any missed dosages. Denies lightheadedness, dizziness, and syncopal episodes. Patient was recently seen by [facility] EP 03/08/24 for evaluation and management of AF/atypical atrial flutter. Recommended patient would benefit from repeat EPS and ablation for AF/AFL as outpatient with tikosyn load following the ablation to maintain SR. In the meantime, her toprol XL was increased to 50mg BID and she was instructed to stop taking her flecainide. She was scheduled to have an ablationon 04/22/24 with CTPV the day prior. HEART FAILURE HISTORY Primary HF Physician Etiology of HF NICM/ tachy-induced Home GDMT Aldactone, toprol XL Dry Weight Per pt, 130lbs Last Admission - Last Ischemic Eval 03/2022 PCP Minerva Shaver Last Echo/MRI 12/31/22 Device 1 none PAST MEDICAL, SURGICAL, FAMILY, and SOCIAL HISTORY No past medical history on file. No past surgical history on file. No family history on file. Social History Socioeconomic History Marital status: Single Tobacco Use Smoking status: Former Types: Cigarettes Start date: 2008 Vaping Use Vaping status: Never Used Substance and Sexual Activity Alcohol use: Not Currently Drug use: Never Social Determinants of Health Financial Resource Strain: Low Risk (04/15/2022) Received from [facility] Overall Financial Resource Strain (CARDIA) Difficulty of Paying Living Expenses: Not hard at all Food Insecurity: No Food Insecurity (04/15/2022) Received from [facility] Hunger Vital Sign Worried About Running Out of Food in the Last Year: Never true Ran Out of Food in the Last Year: Never true Transportation Needs: No Transportation Needs (04/15/2022) Received from [facility] PRAPARE - Transportation Lack of Transportation (Medical): No Lack of Transportation (Non-Medical): No Physical Activity: Sufficiently Active (04/15/2022) Received from [facility] Exercise Vital Sign Days of Exercise per Week: 5 days Minutes of Exercise per Session: 150+ min Stress: No Stress Concern Present (04/15/2022) Received from [facility] [place] [facility] - Occupational Stress Questionnaire Feeling of Stress : Only a little Social Connections: Socially Isolated (04/15/2022) Received from [facility] Social Connection and Isolation Panel [NHANES] Frequency of Communication with Friends and Family: Three times a week Frequency of Social Gatherings with Friends and Family: Once a week Attends Jehovah'S Witness Services: Never Active Member of Clubs or Organizations: No Attends Club or Organization Meetings: Never Marital Status: Housing Stability: Unknown (04/15/2022) Received from [facility] Housing Stability Vital Sign Unable to Pay for Housing in the Last Year: No Unstable Housing in the Last Year: No MEDICATIONS Cannot display prior to admission medications because the patient has not been admitted in this contact. I have personally reviewed the medication list, verified it, and updated it via the Medication Reconciliation Navigator: [ X ]Verbally with the patient []With the patient's personal medication list []Verbally with the patient's family member []Verbally with the facility's MAR []With the patient's Pharmacy ALLERGIES: She is allergic to *adhesive tape, codeine, diltiazem, etodolac, meloxicam, naproxen, phenylalanine, ranitidine, and trazodone. REVIEW OF SYSTEMS Review of Systems Review of Systems Constitutional: Positive for malaise/fatigue and weight gain. Negative for decreased appetite and fever. HENT: Negative. Eyes: Negative. Cardiovascular: Positive for chest pain, dyspnea on exertion, irregular heartbeat, leg swelling, orthopnea, palpitations and paroxysmal nocturnal dyspnea. Negative for near-syncope and syncope. Respiratory: Positive for cough and shortness of breath. Skin: Negative. Musculoskeletal: Positive for arthritis and muscle weakness. Gastrointestinal: Positive for bloating and heartburn. Negative for abdominal pain, constipation, diarrhea, nausea and vomiting. Genitourinary: Negative for dysuria, hesitancy and urgency. Neurological: Negative for dizziness, light-headedness and numbness. Psychiatric/Behavioral: Negative. PHYSICAL EXAM Temp: [97.5 F (36.4 C)] Pulse (Heart Rate): [116] BP: (132)/(85) Resp Rate: [20] O2 Sat (%): [92 %] MEWS Score (AutoCalculated): [0-3] Body mass index is 24.37 kg/m . Physical Exam Constitutional: She appears chronically ill. Eyes: Conjunctivae are normal. Neck: JVD (to low neck) present. Cardiovascular: S1 normal and S2 normal. An irregular rhythm present. Tachycardia present. Pulses: Radial pulses are 1+ on the right side and 1+ on the left side. Warm and mildly wet Pulmonary/Chest: Effort normal and breath sounds normal. She has no wheezes. She has no rales. She exhibits no tenderness. Abdominal: Soft. Bowel sounds are normal. She exhibits distension. There is no abdominal tenderness. Musculoskeletal: General: No edema. Normal range of motion. Cervical back: Normal range of motion. Neurological: She is alert and oriented to person, place, and time. Skin: Skin is warm and dry. LABS AND IMAGING All recent labs and imaging personally review: No results found for: LDH Recent Labs 04/13/24 0005 WBC 11.67* HGB 14.7 HCT 43.9 PLATELET 301 SODIUM 141 POTASSIUM 3.6 CHLORIDE 97* CO2 27 BUN 24 CREATSERUM 1.00 GLUCOSE 108* CALCIUM 10.2 MAGNESIUM 2.0 PHOSPHORUS 4.1 Ptt/Pt/Inr: 28.4/--/-- (04/13 0005) Lab Results Component Value Date NTERMINALPRO 4,593 (H) 04/13/2024 Reference Ranges for ProBNP: Normal - rules out CHF Age < 75 - ProBNP < 125 Age > 75 - ProBNP < 450 Positive - rules in CHF Age < 50 - ProBNP >450 Age 50-75 - ProBNP >900 Age > 75 - Pro BNP >1800 No results found for: HSTROP Imaging XR CHEST [address] CARDIAC PULMONARY VENOGRAM (Results Pending) Last Echo: Results for orders placed in visit on 12/31/22 ECHOCARDIOGRAM (OUTSIDE) (Final) Last Ischemic Eval: 04/08/22 Stress test Last Right Heart Cath: None Pertinent Diagnosis 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 Since that time, she was managed with AC, DCCVs and an attempted cryoablation. Patient can tell when she is in SR or AF. The predominant symptoms are palpitations and SOB. Has tried amio in the past, but was discontinued d/t worsened HAAS. Upon arrival to floor, patient is in rate controlled AF with HR in 110s, asymptomatic. She reports she has been complaint with eliquis and denies any missed dosages. - Consult placed to EP for ablation - Ordered CTPV to r/o clot and assess anatomy prior to ablation - Hold eliquis, bridge with heparin gtt - NPO at midnight - Toprol XL 50mg BID, consider transitioning to toprol XL 100mg daily post ablation - Patient reports she was tested for PATSY a couple years ago and did not have PATSY [id number] Score for Atrial Fibrillation Stroke Risk Age in Years: 75+ Sex: Female CHF History: Yes Hypertension History: Yes Stroke/TIA/Thromboembolism History: Yes Vascular Disease History: No Diabetes History: No [id number] Score: 7 Acute on Chronic diastolic heart failure (HFpEF) / non-ischemic cardiomyopathy / Likely tachy-mediated NT-proBNP elevated at 4.6K, physical exam significant for JVD to mid neck. Treated with IV lasix 60mg x1 prior to transfer. Symptomatic HF with LVEF 60% NYHA functional class III, ACC/AHA stage C Lab Results Component Value Date NTERMINALPRO 4,593 (H) 04/13/2024 Diuretics: PO lasix 60mg BID --> received IV lasix 60mg x1 prior to transfer, holding for NPO SGLT2: Jardiance 10mg daily --> farxiga while inpatient, holding for NPO MRA: Aldactone 25mg daily ARNI or ARB: none Other HTN agent: Toprol XL 50mg BID Strict I/O Daily weight Heart Healthy diet 4 gm sodium with 2 liter fluid restriction - ReDs vest reading ordered for AM - Consider repeat echo when in NSR (last echo in 2022) Hyperlipidemia - Not currently on statin, plan to start this admission given high ASCVD score of 24.9% Lab Results Component Value Date CHOLESTEROL 212 (H) 04/13/2024 TRIG 84 04/13/2024 HDL 67 04/13/2024 LDLCALC 128 (H) 04/13/2024 Hypertension - Medications as above BP Readings from Last 3 Encounters: 04/12/24 132/85 03/08/24 (!) 150/100 CKD Stage III (I=GFR>90, II=60-89, III=30-59, IV=15-29, V<15) Baseline Cr 0.8-1, stable at 1 upon admission Lab Results Component Value Date CREATSERUM 1.00 04/13/2024 Lab Results Component Value Date GFR 58 (L) 04/13/2024 Estimated Creatinine Clearance: 39 mL/min (by C-G formula based on SCr of 1 mg/dL). 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 Brain MRI showed no ischemic stroke. 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 Evaluated by Neurology, recommended to continue Eliquis as well as monitor her blood pressure and cholesterol. Of note, she does have residual numbness and decreased taste to her tongue. - Eliquis holding, bridge with heparin - Not currently on statin, plan to start this admission given high ASCVD score of 24.9% History of BPPV Requiring Kan maneuvers in the past and meclizine with some relief. History of scoliosis and cervical spinal stenosis s/p fusion Patient reports diclofenac is the only pain med that provided relief. Educated patient on risks of using NSAID with CKD and HF. - PT/OT - Consider palliative consult for pain management Acute respiratory insufficiency, resolved Pt reports she recently started using her home oxygen and has not used it several years. Required supplemental O2 at OSH. O2 Sat (%): 98 % (04/13 401) O2 Device: room air (04/12 2315) COPD, mild Follows with pulmonary at [facility]. - Continue inhaler therapies Former Nicotine Dependence - Quit in 2005, 70 pack year smoker Leukocytosis of unknown origin Afebrile, non-toxic appearing upon admission. - Trend with daily CBCs with diff Lab Results Component Value Date WBC 11.67 (H) 04/13/2024 Iron deficient - Pending iron panel Lab Results Component Value Date HGB 14.7 04/13/2024 GERD - Omeprazole --> Protonix while inpatient Activity: Cardiac rehab, Physical Therapy, Occupational Therapy, and As Tolerated Complexity. Any conditions listed below are present on admission unless otherwise specified. . Code Status: Full Code Access: Patient Lines/Drains/Airways Status Active Lines, Drains, Airways, & Wound Overview Name Placement date Placement time Site Days Peripheral IV Line - Single Lumen 04/13/24 0024 forearm, anterior, left 22 gauge 04/13/24 0024 -- less than 1 Peripheral IV Line - Single Lumen 04/13/24 0111 forearm, anterior, right 20 gauge;1 in length 04/13/24 011 -- less than 1 Diet: DIET NPO with meds DVT Prophylaxis: Heparin gtt Dispo: Home Rica Schulz PA-C HF2/Advanced Heart Failure Phone: [phone] [facility]12-02-2024 History and physical note* Rica Schulz PA-C - 04/12/2024 8:36 PM EST Images from the original note were not included. Heart Failure 2/Advanced Heart Failure HISTORY AND PHYSICAL IDENTIFYING INFORMATION PATIENT: Elizabeth Persaud ADMIT DATE: 04/12/2024 TIME OF EVALUATION: 04/13/2024 3:43 AM HISTORIAN: Patient and EMR Plan of Care: - Consult placed to EP for ablation - Ordered CTPV to r/o clot and assess anatomy prior to ablation - Hold eliquis, bridge with heparin gtt - NPO at midnight - Holding SGLT2i for possible procedure - Consider repeat echo when in NSR (last echo in 2022) - Plan to start statin this admission given high ASCVD score of 24.9% - ReDs vest reading ordered for AM > 45 min spent with patient, reviewing pertinent information, and discussing plan of care with the multidisciplinary team. CHIEF COMPLAINT SOB HISTORY OF PRESENT ILLNESS Elizabeth Persaud is a 78 y.o. 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. Patient reports symptoms began to worsen since being taken off her flecainide by EP 3 weeks ago. She notes her SOB is worse with exertion and states, I can feel my heart beat and vibrate through my chest. Additionally endorses worsening orthopnea (sleeps with wedge pillow), cough, ~6lb weight gain, and PND. Patient also notes she recently started using her home oxygen and has not used it several years. Reports occasional chest pain, but states it is relieved when she takes her omeprazole. Perpatient, her outpatient title curator increased her PO lasix dose to 60mg BID a few weeks ago and started her on aldactone. Due to worsening symptoms, she decided to seek care at [facility]. Work-up revealed trops 8, BNP 394, EKG showed AF with RVR. Treated with two doses of IV metoprolol 5mg, Toprol XL 60mg, IV lasix 60mg x1 and transferred to [facility] for further evaluation. Upon arrival to floor, patient is in rate controlled AF with HR in 110s, asymptomatic. She reports she has been complaint with eliquis and denies any missed dosages. Denies lightheadedness, dizziness, and syncopal episodes. Patient was recently seen by [facility] EP 03/08/24 for evaluation and management of AF/atypical atrial flutter. Recommended patient would benefit from repeat EPS and ablation for AF/AFL as outpatient with tikosyn load following the ablation to maintain SR. In the meantime, her toprol XL was increased to 50mg BID and she was instructed to stop taking her flecainide. She was scheduled to have an ablationon 04/22/24 with CTPV the day prior. HEART FAILURE HISTORY Primary HF Physician Etiology of HF NICM/ tachy-induced Home GDMT Aldactone, toprol XL Dry Weight Per pt, 130lbs Last Admission - Last Ischemic Eval 03/2022 PCP Minerva Shaver Last Echo/MRI 12/31/22 Device 1 none PAST MEDICAL, SURGICAL, FAMILY, and SOCIAL HISTORY No past medical history on file. No past surgical history on file. No family history on file. Social History Socioeconomic History Marital status: Single Tobacco Use Smoking status: Former Types: Cigarettes Start date: 2008 Vaping Use Vaping status: Never Used Substance and Sexual Activity Alcohol use: Not Currently Drug use: Never Social Determinants of Health Financial Resource Strain: Low Risk (04/15/2022) Received from [facility] Overall Financial Resource Strain (CARDIA) Difficulty of Paying Living Expenses: Not hard at all Food Insecurity: No Food Insecurity (04/15/2022) Received from [facility] Hunger Vital Sign Worried About Running Out of Food in the Last Year: Never true Ran Out of Food in the Last Year: Never true Transportation Needs: No Transportation Needs (04/15/2022) Received from [facility] PRAPARE - Transportation Lack of Transportation (Medical): No Lack of Transportation (Non-Medical): No Physical Activity: Sufficiently Active (04/15/2022) Received from [facility] Exercise Vital Sign Days of Exercise per Week: 5 days Minutes of Exercise per Session: 150+ min Stress: No Stress Concern Present (04/15/2022) Received from [facility], [facility] of Occupational Health - Occupational Stress Questionnaire Feeling of Stress : Only a little Social Connections: Socially Isolated (04/15/2022) Received from [facility] Social Connection and Isolation Panel [NHANES] Frequency of Communication with Friends and Family: Three times a week Frequency of Social Gatherings with Friends and Family: Once a week Attends Je[employer] Services: Never Active Member of Clubs or Organizations: No Attends Club or Organization Meetings: Never Marital Status: Housing Stability: Unknown (04/15/2022) [facility] Housing Stability Vital Sign Unable to Pay for Housing in the Last Year: No Unstable Housing in the Last Year: No MEDICATIONS Cannot display prior to admission medications because the patient has not been admitted in this contact. I have personally reviewed the medication list, verified it, and updated it via the Medication Reconciliation Navigator: [ X ]Verbally with the patient []With the patient's personal medication list []Verbally with the patient's family member []Verbally with the facility's MAR []With the patient's Pharmacy ALLERGIES: She is allergic to *adhesive tape, codeine, diltiazem, etodolac, meloxicam, naproxen, phenylalanine, ranitidine, and trazodone. REVIEW OF SYSTEMS Review of Systems Review of Systems Constitutional: Positive for malaise/fatigue and weight gain. Negative for decreased appetite and fever. HENT: Negative. Eyes: Negative. Cardiovascular: Positive for chest pain, dyspnea on exertion, irregular heartbeat, leg swelling, orthopnea, palpitations and paroxysmal nocturnal dyspnea. Negative for near-syncope and syncope. Respiratory: Positive for cough and shortness of breath. Skin: Negative. Musculoskeletal: Positive for arthritis and muscle weakness. Gastrointestinal: Positive for bloating and heartburn. Negative for abdominal pain, constipation, diarrhea, nausea and vomiting. Genitourinary: Negative for dysuria, hesitancy and urgency. Neurological: Negative for dizziness, light-headedness and numbness. Psychiatric/Behavioral: Negative. PHYSICAL EXAM Temp: [97.5 F (36.4 C)] Pulse (Heart Rate): [116] BP: (132)/(85) Resp Rate: [20] O2 Sat (%): [92 %] MEWS Score (AutoCalculated): [0-3] Body mass index is 24.37 kg/m . Physical Exam Constitutional: She appears chronically ill. Eyes: Conjunctivae are normal. Neck: JVD (to low neck) present. Cardiovascular: S1 normal and S2 normal. An irregular rhythm present. Tachycardia present. Pulses: Radial pulses are 1+ on the right side and 1+ on the left side. Warm and mildly wet Pulmonary/Chest: Effort normal and breath sounds normal. She has no wheezes. She has no rales. She exhibits no tenderness. Abdominal: Soft. Bowel sounds are normal. She exhibits distension. There is no abdominal tenderness. Musculoskeletal: General: No edema. Normal range of motion. Cervical back: Normal range of motion. Neurological: She is alert and oriented to person, place, and time. Skin: Skin is warm and dry. LABS AND IMAGING All recent labs and imaging personally review: No results found for: LDH Recent Labs 04/13/24 0005 WBC 11.67* HGB 14.7 HCT 43.9 PLATELET 301 SODIUM 141 POTASSIUM 3.6 CHLORIDE 97* CO2 27 BUN 24 CREATSERUM 1.00 GLUCOSE 108* CALCIUM 10.2 MAGNESIUM 2.0 PHOSPHORUS 4.1 Ptt/Pt/Inr: 28.4/--/-- (04/13 0005) Lab Results Component Value Date NTERMINALPRO 4,593 (H) 04/13/2024 Reference Ranges for ProBNP: Normal - rules out CHF Age < 75 - ProBNP < 125 Age > 75 - ProBNP < 450 Positive - rules in CHF Age < 50 - ProBNP >450 Age 50-75 - ProBNP >900 Age > 75 - Pro BNP >1800 No results found for: HSTROP Imaging XR CHEST [address] CARDIAC PULMONARY VENOGRAM (Results Pending) Last Echo: Results for orders placed in visit on 12/31/22 ECHOCARDIOGRAM (OUTSIDE) (Final) Last Ischemic Eval: 04/08/22 Stress test Last Right Heart Cath: None Pertinent Diagnosis 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 Since that time, she was managed with AC, DCCVs and an attempted cryoablation. Patient can tell when she is in SR or AF. The predominant symptoms are palpitations and SOB. Has tried amio in the past, but was discontinued d/t worsened HAAS. Upon arrival to floor, patient is in rate controlled AF with HR in 110s, asymptomatic. She reports she has been complaint with eliquis and denies any missed dosages. - Consult placed to EP for ablation - Ordered CTPV to r/o clot and assess anatomy prior to ablation - Hold eliquis, bridge with heparin gtt - NPO at midnight - Toprol XL 50mg BID, consider transitioning to toprol XL 100mg daily post ablation - Patient reports she was tested for PATSY a couple years ago and did not have PATSY [id number] Score for Atrial Fibrillation Stroke Risk Age in Years: 75+ Sex: Female CHF History: Yes Hypertension History: Yes Stroke/TIA/Thromboembolism History: Yes Vascular Disease History: No Diabetes History: No [id number] Score: 7 Acute on Chronic diastolic heart failure (HFpEF) / non-ischemic cardiomyopathy / Likely tachy-mediated NT-proBNP elevated at 4.6K, physical exam significant for JVD to mid neck. Treated with IV lasix 60mg x1 prior to transfer. Symptomatic HF with LVEF 60% NYHA functional class III, ACC/AHA stage C Lab Results Component Value Date NTERMINALPRO 4,593 (H) 04/13/2024 Diuretics: PO lasix 60mg BID --> received IV lasix 60mg x1 prior to transfer, holding for NPO SGLT2: Jardiance 10mg daily --> farxiga while inpatient, holding for NPO MRA: Aldactone 25mg daily ARNI or ARB: none Other HTN agent: Toprol XL 50mg BID Strict I/O Daily weight Heart Healthy diet 4 gm sodium with 2 liter fluid restriction - ReDs vest reading ordered for AM - Consider repeat echo when in NSR (last echo in 2022) Hyperlipidemia - Not currently on statin, plan to start this admission given high ASCVD score of 24.9% Lab Results Component Value Date CHOLESTEROL 212 (H) 04/13/2024 TRIG 84 04/13/2024 HDL 67 04/13/2024 LDLCALC 128 (H) 04/13/2024 Hypertension - Medications as above BP Readings from Last 3 Encounters: 04/12/24 132/85 03/08/24 (!) 150/100 CKD Stage III (I=GFR>90, II=60-89, III=30-59, IV=15-29, V<15) Baseline Cr 0.8-1, stable at 1 upon admission Lab Results Component Value Date CREATSERUM 1.00 04/13/2024 Lab Results Component Value Date GFR 58 (L) 04/13/2024 Estimated Creatinine Clearance: 39 mL/min (by C-G formula based on SCr of 1 mg/dL). 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 Brain MRI showed no ischemic stroke. 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 Evaluated by Neurology, recommended to continue Eliquis as well as monitor her blood pressure and cholesterol. Of note, she does have residual numbness and decreased taste to her tongue. - Eliquis holding, bridge with heparin - Not currently on statin, plan to start this admission given high ASCVD score of 24.9% History of BPPV Requiring Kan maneuvers in the past and meclizine with some relief. History of scoliosis and cervical spinal stenosis s/p fusion Patient reports diclofenac is the only pain med that provided relief. Educated patient on risks of using NSAID with CKD and HF. - PT/OT - Consider palliative consult for pain management Acute respiratory insufficiency, resolved Pt reports she recently started using her home oxygen and has not used it several years. Required supplemental O2 at OSH. O2 Sat (%): 98 % (04/13 401) O2 Device: room air (04/12 2315) COPD, mild Follows with pulmonary at [facility]. - Continue inhaler therapies Former Nicotine Dependence - Quit in 2005, 70 pack year smoker Leukocytosis of unknown origin Afebrile, non-toxic appearing upon admission. - Trend with daily CBCs with diff Lab Results Component Value Date WBC 11.67 (H) 04/13/2024 Iron deficient - Pending iron panel Lab Results Component Value Date HGB 14.7 04/13/2024 GERD - Omeprazole --> Protonix while inpatient Activity: Cardiac rehab, Physical Therapy, Occupational Therapy, and As Tolerated Complexity. Any conditions listed below are present on admission unless otherwise specified. . Code Status: Full Code Access: Patient Lines/Drains/Airways Status Active Lines, Drains, Airways, & Wound Overview Name Placement date Placement time Site Days Peripheral IV Line - Single Lumen 04/13/24 0024 forearm, anterior, left 22 gauge 04/13/24 002 -- less than 1 Peripheral IV Line - Single Lumen 04/13/24 0111 forearm, anterior, right 20 gauge;1 in length 04/13/24 0111 -- less than 1 Diet: DIET NPO with meds DVT Prophylaxis: Heparin gtt Dispo: Home Rica Schulz PA-C HF2/Advanced Heart Failure Phone: [phone] [facility] NoteHNO ID: [id number] Author: MINERVA SHAVER MD Service: ? Author Type: Physician Type: Progress Notes Filed: 04/02/2024 12:17 Note Text: Elizabeth Persaud is a 78 year old female here for a Medicare wellness visit. Medicare Health Risk Assessment General Health Poor Exercise: Minutes/Day She was working 8 hours a day but for 2 weeks not working Exercise: Days/Week Not doing much Alcohol: Daily Use None Alcohol: Drinks/Day None Alcohol: 6 or more drinks None Feel off balance She does feels of balance Concerns: Teeth/Dentures She has dentures Concerns: Sexual function Not active Troubled by feelings She is really getting depressed when she cannot work Frequency: Eating healthy diet Yes ADLs requiring help no Safety precautions in home/vehicle No Smoke, vape, chews tobacco No Difficulty hearing Yes and has hearing aids Difficulty seeing new Current Providers Specialists: I have reviewed specialist-related care of the patient in the medical record. Medical/Family history review Reviewed and updated problem list, medical/surgical/family/social history, medications, and allergies. Opioid use review Opioid Medications (last 90 days) No data to display Depression Screening Cognitive screening Mini Cog Score: 2 Cognitive screening reviewed and No further action needed (score 3-5). Functional Observation Was the patient's Timed Up AND Go test unsteady or >= 12 seconds? No Advance Care Planning Surrogate decision maker and/or advance care plan documented Measurements BP 118/62 (BP Site: Left Arm) Pulse 96 Ht 155 cm (5' 1.02) Wt 60.2 kg (132 lb 11.5 oz) SpO2 94% BMI 25.06 kg/m? Vision Screening: Follows with optometry/ophthalmology Assessment/Plan Medicare annual wellness visit, subsequent (Z00.00) - Counseled on healthy diet and regular exercise - Fall avoidance information provided - Personalized prevention plan provided Reason for Visit Patient presents with: Medicare Wellness Exam Elizabeth Persaud is a 78 year old female who presents here today for Above Complaints.. Health Maintenance Depression Screening Anxiety Screening BP Controlled (<130/80) Shingrix Vaccine(3 of 3) RSV Vaccine(1 - 1-dose 75+ series) Covid-19 Vaccine( season) HPI This is a 78-year-old woman with a past medical history of hypertension, A-fib, CHF with preserved ejection fraction, history of smoking disorder, history of COPD, history of Moses's esophagus, basal cell carcinoma in the past, she is undergoing ablation on April 22 at [facility]. Her recent GFR was in the low 30s and she is requesting a diclofenac tablet. Medication changes: She feels very poorly today, reports that has been the case since her flecaine was stopped. her metoprolol was raised. She is more tired now than before with the changes in medication. Her whole body is aching, around the collar bone she feels bruised, chest is tender. She is tired all the time, no energy, weakness, she is miserable. No weight loss but has water pills recently. She has pain when she stands up after resting, when she keeps walking and moving around she has trouble. She has trouble with swallowing as her discs and vertebrae are pushing pressing against esophagus. forward. One of the bolts broke loose. She has general osteoarthrosis, which has made it difficult for her in the back, hips and knees, and she still wants to work, as it gets better when she moves more. She just keeps limping most of the time. Has balance issues, from the back issues and related neuropathy. No problem-specific Assessment AND Plan notes found for this encounter. PAST MEDICAL HISTORY Diagnosis Date Anxiety Arthritis Atrial fibrillation (HCC) s/p ablation 07/2015 Backache, unspecified Moses's esophagus Basal cell carcinoma BPPV (benign paroxysmal positional vertigo) Cancer (HCC) Basal cell on forehead Carpal [...] SINGLE/MULTIPLE 02/08/2011 ESOPHAGOGASTRODUODENOSCOPY TRANSORAL DIAGNOSTIC 10/06/2013 EGD ESOPHAGOGASTRODUODENO (more content not included)...[facility] 04-02-2024 History of Present illness Narrative* Minerva Shaver MD - 04/02/2024 10:18 AM EST Images from the original note were not included. Elizabeth Persaud is a 78 year old female here for a Medicare wellness visit. Medicare Health Risk Assessment General Health Poor Exercise: Minutes/Day She was working 8 hours a day but for 2 weeks not working Exercise: Days/Week Not doing much Alcohol: Daily Use None Alcohol: Drinks/Day None Alcohol: 6 or more drinks None Feel off balance She does feels of balance Concerns: Teeth/Dentures She has dentures Concerns: Sexual function Not active Troubled by feelings She is really getting depressed when she cannot work Frequency: Eating healthy diet Yes ADLs requiring help no Safety precautions in home/vehicle No Smoke, vape, chews tobacco No Difficulty hearing Yes and has hearing aids Difficulty seeing new Current Providers Specialists: I have reviewed specialist-related care of the patient in the medical record. Medical/Family history review Reviewed and updated problem list, medical/surgical/family/social history, medications, and allergies. Opioid use review Opioid Medications (last 90 days) No data to display Depression Screening Cognitive screening Mini Cog Score: 2 Cognitive screening reviewed and No further action needed (score 3-5). Functional Observation Was the patient's Timed Up & Go test unsteady or >= 12 seconds? No Advance Care Planning Surrogate decision maker and/or advance care plan documented Measurements BP 118/62 (BP Site: Left Arm) Pulse 96 Ht 155 cm (5' 1.02) Wt 60.2 kg (132 lb 11.5 oz) SpO2 94% BMI 25.06 kg/m Vision Screening: Follows with optometry/ophthalmology Assessment/Plan Medicare annual wellness visit, subsequent (Z00.00) - Counseled on healthy diet and regular exercise - Fall avoidance information provided - Personalized prevention plan provided Reason for Visit Patient presents with: Medicare Wellness Exam Elizabeth Persaud is a 78 year old female who presents here today for Above Complaints.. Health Maintenance Depression Screening Anxiety Screening BP Controlled (<130/80) Shingrix Vaccine(3 of 3) RSV Vaccine(1 - 1-dose 75+ series) Covid-19 Vaccine( season) HPI This is a 78-year-old woman with a past medical history of hypertension, A-fib, CHF with preserved ejection fraction, history of smoking disorder, history of COPD, history of Moses's esophagus, basal cell carcinoma in the past, she is undergoing ablation on April 22 at [facility]. Her recent GFR was in the low 30s and she is requesting a diclofenac tablet. Medication changes: She feels very poorly today, reports that has been the case since her flecaine was stopped. her metoprolol was raised. She is more tired now than before with the changes in medication. Her whole body is aching, around the collar bone she feels bruised, chest is tender. She is tired all the time, no energy, weakness, she is miserable. No weight loss but has water pills recently. She has pain when she stands up after resting, when she keeps walking and moving around she has trouble. She has trouble with swallowing as her discs and vertebrae are pushing pressing against esophagus. forward. One of the bolts broke loose. She has general osteoarthrosis, which has made it difficult for her in the back, hips and knees, and she still wants to work, as it gets better when she moves more. She just keeps limping most of the time. Has balance issues, from the back issues and related neuropathy. No problem-specific Assessment & Plan notes found for this encounter. PAST MEDICAL HISTORY Diagnosis Date Anxiety Arthritis Atrial fibrillation (HCC) s/p ablation 07/2015 Backache, unspecified Moses's esophagus Basal cell carcinoma BPPV (benign paroxysmal positional vertigo) Cancer (HCC) Basal cell on forehead Carpal [...] surgery with implants- Dr Jacob Aguilar at [facility] PAST SURGICAL HISTORY OF 07/27/2015 cryo ablation, cardiac RPR UMBILICAL HRNA 5 YRS/> REDUCIBLE 07/17/2010 Hernia repair, umbilical >5yr [facility] Dr Manuel Hoover SHX COSMETIC SURGERY SKIN BIOPSY HX FAMILY HISTORY Problem Relation Age of Onset Hypertension Mother Stroke Mother Coronary Artery Disease Father other (wilsons disease) Brother other (VINCE'S DISEASE) Brother Liver dse, cirrhosis Social History Tobacco Use Smoking status: Former Current packs/day: 0.00 Average packs/day: 2.0 packs/day for 35.0 years (70.0 ttl pk-yrs) Types: Cigarettes Start date: 11/09/1970 Quit date: 11/09/2005 Years since quittin.4 Smokeless tobacco: Never Tobacco comments: Stopped smoking 12/2005 Vaping Use Vaping status: Never Used Substance Use Topics Alcohol use: Not Currently Drug use: No Past medical history, appointments, medications, allergies reviewed. Pertinent Lab/Diagnostic Studies are reviewed and discussed today Current Outpatient Medications: diclofenac, EC, (VOLTAREN) 75 mg EC tablet nystatin (MYCOSTATIN) 100,000 unit/mL suspension omeprazole (PRILOSEC) 40 mg capsule metoprolol succinate ER (TOPROL XL) 50 mg 24 hr tablet zxfzqgcgvhp-zufrgimth-xtdctxha (TRELEGY ELLIPTA) 100-62.5-25 mcg inhalation powder fluticasone (FLONASE) 50 mcg/actuation nasal spray JARDIANCE 10 mg tablet Ipratropium (ATROVENT) 17 mcg/actuation inhaler furosemide (LASIX) 40 mg tablet apixaban (ELIQUIS) 5 mg tab(s) Bifidobacterium infantis (ALIGN) 10.5 mg (10 million cell) chew melatonin 3 mg ODT MULTIVITAMIN WITH MINERALS (ONE-A-DAY 50 PLUS ORAL) CALCIUM CARBONATE/VITAMIN D3 (VITAMIN D-3 ORAL) TTZRFIA-[id number]-YANG ORAL flecainide (TAMBOCOR) 100 mg tablet potassium chloride ER (K-DUR, KLOR-CON) 20 mEq tablet Review of Systems CONSTITUTIONAL: No fevers, [...] or numbness of concern. Physical Exam BP 118/62 (BP Site: Left Arm) Pulse 96 Ht 155 cm (5' 1.02) Wt 60.2 kg (132 lb 11.5 oz) SpO2 94% BMI 25.06 kg/m General appearance: Well appearing, alert, in [...] discoloration, clubbing or cyanosis. Good capillary refill. Balance cannot do the tandem gait ASSESSMENT/PLAN: 1. Medicare annual wellness visit, subsequent - ICD9: V70.0, ICD10: Z00.00 (primary diagnosis) - Counseled on healthy diet and regular exercise 2. Generalized arthritis - ICD9: 716.90, ICD10: M19.90 Discussed Physical Therapy , accupuncture, topicals. She has pain all over, likely from the changes in medications. Asked her to discuss with title curator to try to change her metoprolol dosage. 3. Peripheral arterial disease (HCC) - ICD9: 443.9, ICD10: I73.9 4. Memory deficit - ICD9: 780.93, ICD10: R41.3 Related to vascular issues 5. Encounter for monitoring chronic NSAID therapy - ICD9: V58.83, V58.64, ICD10: Z51.81, Z79.1 No nsaids for her any more. 6. Thrush - ICD9: 112.0, ICD10: B37.0 - NYSTATIN 100,000 UNIT/ML ORAL SUSPENSION 7. Frailty syndrome in geriatric patients - ICD9: 797, ICD10: R54 I think she will benefit from Physical Therapy - CONSULT TO PHYSICAL THERAPY 8. Balance disorder - ICD9: 781.99, ICD10: R26.89 - CONSULT TO PHYSICAL THERAPY 9. Generalized osteoarthrosis - ICD9: 715.00, ICD10: M15.9 Hoping that Physical Therapy will help her. Minerva Shaver MD [facility] Telephone encounter Note * Telephone Encounter - Davin Waterman MA - 02/23/2024 8:28 AM EDT Faxed as requested. Davin Waterman MA [facility]10-14-2024 Miscellaneous Notes* Telephone Encounter - Davin Waterman MA - 02/23/2024 8:28 AM EDT Faxed as requested. Davin Waterman MA * Telephone Encounter - Davin Waterman MA - 02/23/2024 8:15 AM EDT Form received from [facility] regarding patient's REFUGIO for insurance purposes. Form filled out and placed on PCP desk for signature. Once signed, please fax to [facility] at [phone], ATTN HR and copy to scanning. Davin Waterman MA documented [facility]24 Telephone encounter Note * Telephone Encounter - Davin Waterman MA - 02/23/2024 8:15 AM EDT Form received from [facility] regarding patient's REFUGIO for insurance purposes. Form filled out and placed on PCP desk for signature. Once signed, please fax to [facility] at [phone], ATTN HR and copy to scanning. Davin Waterman MA [facility]08-22-2024 NoteHNO ID: [id number] Author: DIANNA BALLARD APRN.[employer] Service: ? Author Type: Nurse Practitioner Type: Progress Notes Filed: 01/01/2024 13:33 Note Text: CC: Patient presents with: Recheck: 3 month follow up HPI Elizabeth Persaud is a 78 year old female who presents today for routine follow up. Currently in a-fib, HTN, CHF: working with cardiology and has appointment to discuss possible ablation at the end of February. Having a lot of palpitations, shortness for breath, chest pressure if HR is really high, On eliquis for DVT prophylaxis. Patient denies any side effects of her medication(s) and is compliant with their regimen. She does check BP's away from this office with average BP's in the 90s-100s/60s-70s range. 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 She watches her diet for sodium, low fat and low cholesterol most of the time. Is waiting for cardiology to decide if they will cardiovert her. Last 3 Encounter BP Readings: Date: BP: 01/01/2024 104/80 12/15/2023 100/64 09/29/2023 124/70 COPD: Following with pulmonology and much improvement with current treatment. Denies cough, wheezing, or need for a rescue inhaler. REVIEW OF SYSTEMS See HPI PAST MEDICAL HISTORY No date: Anxiety No date: Arthritis No date: Atrial fibrillation (HCC) Comment: s/p ablation 07/2015 No date: Backache, unspecified No date: Moses's esophagus No date: Basal cell carcinoma No date: BPPV (benign paroxysmal positional vertigo) No date: Cancer (HCC) Comment: Basal cell on forehead No date: Carpal tunnel syndrome, bilateral No date: Congestive heart failure (HCC) No date: COPD (chronic obstructive pulmonary disease) ([facility]) No date: DVT (deep venous thrombosis) ([facility]) Comment: remote No date: Esophageal reflux 10/31/2018: History of cardioversion No date: HTN (hypertension) No date: Irritable bowel syndrome 09/14/2018: Left carotid bruit Comment: noted by cardiology 11/08/2016: Left ventricular systolic dysfunction No date: Other specified abdominal hernia without obstruction or gangrene No date: PONV (postoperative nausea and vomiting) No date: S/P cervical spinal fusion No date: Scoliosis PAST SURGICAL HISTORY No date: BREAST SURGERY HX; Right Comment: Lumpectomy benign 10/2016: CHOLECYSTECTOMY 06/11/2022: COLONOSCOPY Comment: repeat prn 10/06/2013: COLONOSCOPY FLX DX W/COLLJ SPEC WHEN PFRMD Comment: Colonoscopy 11/22/2015: COLONOSCOPY FLX DX W/COLLJ SPEC WHEN PFRMD Comment: Colonoscopy No date: CONIZATION OF CERVIX, LEEP No date: CURETTAGE 06/11/2022: EGD 02/08/2011: EGD TRANSORAL BIOPSY SINGLE/MULTIPLE 10/06/2013: ESOPHAGOGASTRODUODENOSCOPY TRANSORAL DIAGNOSTIC Comment: EGD 11/22/2015: ESOPHAGOGASTRODUODENOSCOPY TRANSORAL DIAGNOSTIC Comment: EGD 02/28/2016: ESOPHAGOGASTRODUODENOSCOPY TRANSORAL DIAGNOSTIC Comment: EGD No date: EYE SURGERY HX No date: HERNIA REPAIR HX No date: LIG/TRNSXJ FLP TUBE ABDL/VAG APPR UNI/BI Comment: Tubal ligation 02/14/2012: NEUROPLASTY AND/TRANSPOS MEDIAN NRV CARPAL TUNNE Comment: Carpal tunnel decomp - right 07/17/2010: OOPHORECTOMY PARTIAL/TOTAL UNI/BI Comment: Oophorectomy - left Dr. Manuel Hoover - Dr. Alessio Dahl No date: PAST SURGICAL HISTORY OF Comment: NECK SURGERY, anterior fusion No date: PAST SURGICAL HISTORY OF Comment: Face lift No date: PAST SURGICAL HISTORY OF Comment: back surgery No date: PAST SURGICAL HISTORY OF Comment: bilat foot surgey, bunionectomy No date: PAST SURGICAL HISTORY OF Comment: benign tumor removed from right breast 03/2011: PAST SURGICAL HISTORY OF Comment: B/L cataract surgery with implants- Dr Jacob Aguilar at [facility] 07/27/2015: PAST SURGICAL HISTORY OF Comment: cryo ablation, cardiac 07/17/2010: RPR UMBILICAL HRNA 5 YRS/> REDUCIBLE Comment: Hernia repair, umbilical >5yr [facility] Dr Manuel Hoover No date: SHX COSMETIC SURGERY No date: SKIN BIOPSY HX ALLERGIES Cardizem [Diltiazem Hcl], Codeine, Entex [Phenylephrine-Guaifenesin], Etodolac, Meloxicam, Naproxen, Tape [Adhesive Tape (Rosins)], Trazodone, and Zantac [Ranitidine Hcl] MEDICATIONS diclofenac, EC, (VOLTAREN) 75 mg EC tablet Takes once daily PRN for acute pain/inflammation. Take with food. nystatin (MYCOSTATIN) 100,000 unit/mL suspension Take 5 mL by mouth four times daily. 1tsp swish in mouth for several minutes, then swallow (or expectorate) 4 times daily until gone. omeprazole (PRILOSEC) 40 mg capsule Take 1 capsule by mouth once daily. metoprolol succinate ER (TOPROL XL) 50 mg 24 hr tablet Take 1 tablet by mouth two times a day. (Patient taking differently: Take 25 mg by mouth two times a day.) vvumzarwrem-xfxpjooaw-emcmybod (TRELEGY ELLIPTA) 100-62.5-25 mcg inhalation powder Inhale 1 Puff as instructed once daily. sucralfate (CARAFATE) 100 mg/mL suspension Take 10 mL by mouth before meals and at bedtime. (560cc=2wks) (Patient not taking: Reported on (more content not included)...[facility]08-22-[facility] History of Present illness Narrative* Dianna Ballard APRN.[employer] - 01/01/2024 10:53 AM EDT CC: Patient presents with: Recheck: 3 month follow up HPI Elizabeth Persaud is a 78 year old female who presents today for routine follow up. Currently in a-fib, HTN, CHF: working with cardiology and has appointment to discuss possible ablation at the end of February. Having a lot of palpitations, shortness for breath, chest pressure if HR is really high, On eliquis for DVT prophylaxis. Patient denies any side effects of her medication(s)and is compliant with their regimen. She does check BP's away from this office with average BP's inthe 90s-100s/60s-70s range. 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 She watches her diet for sodium, low fat and low cholesterol most of the time. Is waiting for cardiology to decide if they will cardiovert her. Last 3 Encounter BP Readings: Date: BP: 01/01/2024 104/80 12/15/2023 100/64 09/29/2023 124/70 COPD: Following with pulmonology and much improvement with current treatment. Denies cough, wheezing, or need for a rescue inhaler. REVIEW OF SYSTEMS See HPI PAST MEDICAL HISTORY No date: Anxiety No date: Arthritis No date: Atrial fibrillation (HCC) Comment: s/p ablation 07/2015 No date: Backache, unspecified No date: Moses's esophagus No date: Basal cell carcinoma No date: BPPV (benign paroxysmal positional vertigo) No date: Cancer (HCC) Comment: Basal cell on forehead No date: Carpal tunnel syndrome, bilateral No date: Congestive heart failure (HCC) No date: COPD (chronic obstructive pulmonary disease) ([facility]) No date: DVT (deep venous thrombosis) ([facility]) Comment: remote No date: Esophageal reflux 10/31/2018: History of cardioversion No date: HTN (hypertension) No date: Irritable bowel syndrome 09/14/2018: Left carotid bruit Comment: noted by cardiology 11/08/2016: Left ventricular systolic dysfunction No date: Other specified abdominal hernia without obstruction or gangrene No date: PONV (postoperative nausea and vomiting) No date: S/P cervical spinal fusion No date: Scoliosis PAST SURGICAL HISTORY No date: BREAST SURGERY HX; Right Comment: Lumpectomy benign 10/2016: CHOLECYSTECTOMY 06/11/2022: COLONOSCOPY Comment: repeat prn 10/06/2013: COLONOSCOPY FLX DX W/COLLJ SPEC WHEN PFRMD Comment: Colonoscopy 11/22/2015: COLONOSCOPY FLX DX W/COLLJ SPEC WHEN PFRMD Comment: Colonoscopy No date: CONIZATION OF CERVIX, LEEP No date: CURETTAGE 06/11/2022: EGD 02/08/2011: EGD TRANSORAL BIOPSY SINGLE/MULTIPLE 10/06/2013: ESOPHAGOGASTRODUODENOSCOPY TRANSORAL DIAGNOSTIC Comment: EGD 11/22/2015: ESOPHAGOGASTRODUODENOSCOPY TRANSORAL DIAGNOSTIC Comment: EGD 02/28/2016: ESOPHAGOGASTRODUODENOSCOPY TRANSORAL DIAGNOSTIC Comment: EGD No date: EYE SURGERY HX No date: HERNIA REPAIR HX No date: LIG/TRNSXJ FLP TUBE ABDL/VAG APPR UNI/BI Comment: Tubal ligation 02/14/2012: NEUROPLASTY &/TRANSPOS MEDIAN NRV CARPAL TUNNE Comment: Carpal tunnel decomp - right 07/17/2010: OOPHORECTOMY PARTIAL/TOTAL UNI/BI Comment: Oophorectomy - left Dr. Manuel Hoover - Dr. Alessio Dahl No date: PAST SURGICAL HISTORY OF Comment: NECK SURGERY, anterior fusion No date: PAST SURGICAL HISTORY OF Comment: Face lift No date: PAST SURGICAL HISTORY OF Comment: back surgery No date: PAST SURGICAL HISTORY OF Comment: bilat foot surgey, bunionectomy No date: PAST SURGICAL HISTORY OF Comment: benign tumor removed from right breast 03/2011: PAST SURGICAL HISTORY OF Comment: B/L cataract surgery with implants- Dr Jacob Aguilar at [facility] 07/27/2015: PAST SURGICAL HISTORY OF Comment: cryo ablation, cardiac 07/17/2010: RPR UMBILICAL HRNA 5 YRS/> REDUCIBLE Comment: Hernia repair, umbilical >5yr [facility] Dr Manuel Hoover No date: SHX COSMETIC SURGERY No date: SKIN BIOPSY HX ALLERGIES Cardizem [Diltiazem Hcl], Codeine, Entex [Phenylephrine-Guaifenesin], Etodolac, Meloxicam, Naproxen, Tape [Adhesive Tape (Rosins)], Trazodone, and Zantac [Ranitidine Hcl] MEDICATIONS diclofenac, EC, (VOLTAREN) 75 mg EC tablet Takes once daily PRN for acute pain/inflammation. Take with food. nystatin (MYCOSTATIN) 100,000 unit/mL suspension Take 5 mL by mouth four times daily. 1tsp swish inmouth for several minutes, then swallow (or expectorate) 4 times daily until gone. omeprazole (PRILOSEC) 40 mg capsule Take 1 capsule by mouth once daily. metoprolol succinate ER (TOPROL XL) 50 mg 24 hr tablet Take 1 tablet by mouth two times a day. (Patient taking differently: Take 25 mg by mouth two times a day.) ygktgrktlbn-sqfgvwasl-oaacfhio (TRELEGY ELLIPTA) 100-62.5-25 mcg inhalation powder Inhale 1 Puff asinstructed once daily. sucralfate (CARAFATE) 100 mg/mL suspension Take 10 mL by mouth before meals and at bedtime. (560cc=2wks) (Patient not taking: Reported on 12/15/2023) flecainide (TAMBOCOR) 100 mg tablet Take 1 tablet by mouth two times a day. fluticasone (FLONASE) 50 mcg/actuation nasal spray Use 2 Sprays in each nostril once daily. Rinse mouth after use. JARDIANCE 10 mg tablet Take 10 mg by mouth once daily. Ipratropium (ATROVENT) 17 mcg/actuation inhaler Inhale 2 Puffs as instructed every 6 hours as needed for wheezing/shortness of breath. furosemide (LASIX) 40 mg tablet Take 1 [...] 1,000 mg by mouth five times daily. ZPJBJFC-IEHPEWKQW-HFRS ORAL Take by mouth. FAMILY HISTORY Problem Relation Age of Onset Hypertension Mother Stroke Mother Coronary Artery Disease Father other (wilsons disease) Brother other (VINCE'S DISEASE) Brother Liver dse, cirrhosis Social History Tobacco Use Smoking status: Former Current packs/day: 0.00 Average packs/day: 2.0 packs/day for 35.0 years (70.0 ttl pk-yrs) Types: Cigarettes Start date: 11/09/1970 Quit date: 11/09/2005 Years since quittin.1 Smokeless tobacco: Never Tobacco comments: Stopped smoking 12/2005 Vaping Use Vaping status: Never Used Substance Use Topics Alcohol use: Not Currently Drug use: No PHYSICAL EXAM BP 104/80 Pulse 108 Resp 16 Wt 59 kg (130 lb) SpO2 96% BMI 25.52 kg/m General Appearance: well appearing, in no acute distress, alert Pysch: mood and affect broad and appropriate Lungs: Lungs clear to auscultation. No wheezing, rhonchi, rales. Heart: apical irregular without murmur, gallop, or rubs. No ectopy Health maintenance reviewed with patient: Depression Screening Never done Anxiety Screening Never done Shingrix Vaccine(3 of 3) due on 02/11/2024 Covid-19 Vaccine(4 - 2022- season) due on 02/11/2024 RSV Vaccine(1 - 1-dose 60+ series) due on 03/31/2024 Influenza Vaccine(1) due on 01/11/2024 Annual PCP Team Chronic Disease Visit due on 09/28/2024 BP Controlled (<130/80) due on 12/14/2024 Diabetes Screening due on 12/14/2026 DTaP,Tdap,Td Vaccine(2 - Td or Tdap) due on 09/04/2033 Bone Density Screening Completed Spirometry Completed Advance Directive Discussion Completed Hepatitis C Screening Completed Pneumococcal Vaccine: 65+ Completed HPV Vaccine Aged Out Mammogram Screening Discontinued Colorectal Cancer Screening Discontinued DATA REVIEWED: Most recent labs ASSESSMENT/PLAN: 1. Paroxysmal atrial fibrillation (HCC) - ICD9: 427.31, ICD10: I48.0 (primary diagnosis) In a-fib at this time - rate elevated but controlled in visit in low 100s Continue with recommendations by cardiology and follow up with them 2. Congestive heart failure, unspecified HF chronicity, unspecified heart failure type (HCC) - ICD9: 428.0, ICD10: I50.9 Stable and asymptomatic - Continue current medications - Encouraged daily weights - Continue with recommendations by cardiology and follow up with them 3. Primary hypertension - ICD9: 401.9, ICD10: I10 - Controlled - per patient previously low but improved with med changes - Recommend home blood pressure monitoring, to bring results to next visit - Encouraged sodium restriction, DASH or Mediterranean diet - Recommend regular aerobic exercise 4. Chronic obstructive pulmonary disease with acute exacerbation (HCC) - ICD9: 491.21, ICD10: J44.1 Well controlled Continue with current treatment ad recommendations by pulmonology Prescription instructions reviewed with patient as applicable. Potential red flag symptoms discussed with the patient. Reviewed appropriate action plan to take if red flag symptoms occur. Patient agreeable to treatment plan. Dianna Ballard APRN.CNP documented in [facility] History of Present illness Narrative* Laith Montes MD - 12/15/2023 9:30 AM EDT Images from the original note were not included. . Res[facility] [place] Note Patient name: Elizabeth Persaud PCP: Minerva Shaver MD CC: follow up COPD HPI: Elizabeth Persaud 78 year old female former 70 pack year smoker, quitting in 2005 with PMH significant for scoliosis, HFpEF, HTN, GERD, moderate COPD, AF, nocturnal oxygen use presenting for routine follow-up visit. Current therapy with Trelegy Ellipta and as needed albuterol. From a respiratory standpoint she states she has been doing well. Denies significant dyspnea. No cough or sputum production. No audible wheezing. She has not been ill with any upper respiratory infections. She is compliant with use of her Trelegy Ellipta. No need for her albuterol inhaler. Her updated pulmonary function test show marked improvement in her airflow obstruction with FEV1 79% predicted up from 55% predicted. She continues to have falling episodes related to hypotension as well as vertigo. She has a history of BPPV requiring Kan maneuvers in the past. She has been using meclizine with some relief. DME: [employer] DATA: PFT: Review of spirometry shows small airways obstruction PFT 01/2023 Imaging / Diagnostic Studies: PAST MEDICAL HISTORY No date: Anxiety No date: Arthritis No date: Atrial fibrillation (HCC) Comment: s/p ablation 07/2015 No date: Backache, unspecified No date: Moses's esophagus No date: Basal cell carcinoma No date: BPPV (benign paroxysmal positional vertigo) No date: Cancer (HCC) Comment: Basal cell on forehead No date: Carpal tunnel syndrome, bilateral No date: Congestive heart failure (HCC) No date: COPD (chronic obstructive pulmonary disease) ([facility]) No date: DVT (deep venous thrombosis) ([facility]) Comment: remote No date: Esophageal reflux 10/31/2018: History of cardioversion No date: HTN (hypertension) No date: Irritable bowel syndrome 09/14/2018: Left carotid bruit Comment: noted by cardiology 11/08/2016: Left ventricular systolic dysfunction No date: Other specified abdominal hernia without obstruction or gangrene No date: PONV (postoperative nausea and vomiting) No date: S/P cervical spinal fusion No date: Scoliosis ALLERGIES Allergen Reactions Cardizem [Diltiazem* Swelling Codeine Vomiting Ringing in Ears. Entex [Phenylephrin* Rash Etodolac Other: See Comments Heart palpitations Meloxicam Other: See Comments Heart palpitations Naproxen Swelling Possible allergy? Pt relates to naproxen Tape [Adhesive Tape* Rash Trazodone Other: See Comments rapid hear beat Zantac [Ranitidine * Rash, Swelling nystatin (MYCOSTATIN) 100,000 unit/mL suspension Take 5 mL by mouth four times daily. 1tsp swish inmouth for several minutes, then swallow (or expectorate) 4 times daily until gone. omeprazole (PRILOSEC) 40 mg capsule Take 1 capsule by mouth once daily. metoprolol succinate ER (TOPROL XL) 50 mg 24 hr tablet Take 1 tablet by mouth two times a day. (Patient taking differently: Take 25 mg by mouth two times a day.) ecjicijkack-hriakrefp-vqagnqmr (TRELEGY ELLIPTA) 100-62.5-25 mcg inhalation powder Inhale 1 Puff asinstructed once daily. flecainide (TAMBOCOR) 100 mg tablet Take 1 tablet by mouth two times a day. fluticasone (FLONASE) 50 mcg/actuation nasal spray Use 2 Sprays in each nostril once daily. Rinse mouth after use. JARDIANCE 10 mg tablet Take 10 mg by mouth once daily. Ipratropium (ATROVENT) 17 mcg/actuation inhaler Inhale 2 Puffs as instructed every 6 hours as needed for wheezing/shortness of breath. furosemide (LASIX) 40 mg tablet Take 1 [...] 1,000 mg by mouth five times daily. [id number] ORAL Take by mouth. sucralfate (CARAFATE) 100 mg/mL suspension Take 10 mL by mouth before meals and at bedtime. (560cc=2wks) (Patient not taking: Reported on 12/15/2023) Social History Tobacco Use Smoking status: Former [...] Disease Father other (wilsons disease) Brother other (VINCE'S DISEASE) Brother Liver dse, cirrhosis PAST SURGICAL HISTORY No date: BREAST SURGERY HX; Right Comment: Lumpectomy benign 10/2016: CHOLECYSTECTOMY 06/11/2022: COLONOSCOPY Comment: repeat prn 10/06/2013: COLONOSCOPY FLX DX W/COLLJ SPEC WHEN PFRMD Comment: Colonoscopy 11/22/2015: COLONOSCOPY FLX DX W/COLLJ SPEC WHEN PFRMD Comment: Colonoscopy No date: CONIZATION OF CERVIX, LEEP No date: CURETTAGE 06/11/2022: EGD 02/08/2011: EGD TRANSORAL BIOPSY SINGLE/MULTIPLE 10/06/2013: ESOPHAGOGASTRODUODENOSCOPY TRANSORAL DIAGNOSTIC Comment: EGD 11/22/2015: ESOPHAGOGASTRODUODENOSCOPY TRANSORAL DIAGNOSTIC Comment: EGD 02/28/2016: ESOPHAGOGASTRODUODENOSCOPY TRANSORAL DIAGNOSTIC Comment: EGD No date: EYE SURGERY HX No date: HERNIA REPAIR HX No date: LIG/TRNSXJ FLP TUBE ABDL/VAG APPR UNI/BI Comment: Tubal ligation 02/14/2012: NEUROPLASTY &/TRANSPOS MEDIAN NRV CARPAL TUNNE Comment: Carpal tunnel decomp - right 07/17/2010: OOPHORECTOMY PARTIAL/TOTAL UNI/BI Comment: Oophorectomy - left Dr. Manuel Hoover - Dr. Alessio Dahl No date: PAST SURGICAL HISTORY OF Comment: NECK SURGERY, anterior fusion No date: PAST SURGICAL HISTORY OF Comment: Face lift No date: PAST SURGICAL HISTORY OF Comment: back surgery No date: PAST SURGICAL HISTORY OF Comment: bilat foot surgey, bunionectomy No date: PAST SURGICAL HISTORY OF Comment: benign tumor removed from right breast 03/2011: PAST SURGICAL HISTORY OF Comment: B/L cataract surgery with implants- Dr Jacob Aguilar at [facility] 07/27/2015: PAST SURGICAL HISTORY OF Comment: cryo ablation, cardiac 07/17/2010: RPR UMBILICAL HRNA 5 YRS/> REDUCIBLE Comment: Hernia repair, umbilical >5yr [facility] Dr Manuel Hoover No date: SHX COSMETIC SURGERY No date: SKIN BIOPSY HX PMH, Social history, family history and surgical history reviewed and updated in EMR REVIEW OF SYSTEMS: CONSTITUTIONAL: No fevers, chills, nightsweats, unintended weight loss HEENT: Denies nasal congestion/sinus symptoms, problematic allergy problems. EYES: No diplopia or blurry vision. CARDIOVASCULAR: No chest pain, palpitations, edema. PULM: See HPI GI: No dysphagia/odynophagia, problematic reflux NEURO: Vertigo INTEGUMENTARY: No new skin changes PHYSICAL EXAMINATION: BP 100/64 Pulse 102 Resp 12 Wt 133 lb (60.3kg) SpO2 97% General Appearance: Age appropriate NAD. Skin: Skin color, texture, turgor normal, no suspicious rashes or lesions. Head: Normocephalic, no masses, lesions, tenderness or abnormalities. Eyes: Sclera, conjunctiva normal. Oropharynx: No thrush. Neck: No JVD, no masses, right carotid endarterectomy, no carotid bruits. Lungs: Not labored, normal to percussion, no wheezes or crackles. Heart: Irregular rhythm, no murmurs. Extremities: Edema, no clubbing. Assessment/Plan: COPD, mild -Marked improvement in airflow obstruction -She will continue on Trelegy Ellipta with as needed albuterol -She will remain tobacco free -Follow-up 6 months or sooner with problems Former cigarette smoker -Former heavy smoker having quit in 2005 with sequelae of COPD/emphysema -Patient does not qualify for lung cancer screening based on duration of her smoking cessation greater than 15 years Laith Montes MD Respiratory [place] [facility] NoteHNO ID: [id number] Author: LAITH MONTES MD Service: ? Author Type: Physician Type: Progress Notes Filed: 12/15/2023 11:53 Note Text: . Respiratory [place] Note Patient name: Elizabeth Persaud PCP: Minerva Shaver MD CC: follow up COPD HPI: Elizabeth Persaud 78 year old female former 70 pack year smoker, quitting in 2005 with PMH significant for scoliosis, HFpEF, HTN, GERD, moderate COPD, AF, nocturnal oxygen use presenting for routine follow-up visit. Current therapy with Trelegy Ellipta and as needed albuterol. From a respiratory standpoint she states she has been doing well. Denies significant dyspnea. No cough or sputum production. No audible wheezing. She has not been ill with any upper respiratory infections. She is compliant with use of her Trelegy Ellipta. No need for her albuterol inhaler. Her updated pulmonary function test show marked improvement in her airflow obstruction with FEV1 79% predicted up from 55% predicted. She continues to have falling episodes related to hypotension as well as vertigo. She has a history of BPPV requiring Kan maneuvers in the past. She has been using meclizine with some relief. DME: [employer] DATA: PFT: Review of spirometry shows small airways obstruction PFT 01/2023 Imaging / Diagnostic Studies: PAST MEDICAL HISTORY No date: Anxiety No date: Arthritis No date: Atrial fibrillation (HCC) Comment: s/p ablation 07/2015 No date: Backache, unspecified No date: Moses's esophagus No date: Basal cell carcinoma No date: BPPV (benign paroxysmal positional vertigo) No date: Cancer (HCC) Comment: Basal cell on forehead No date: Carpal tunnel syndrome, bilateral No date: Congestive heart failure (HCC) No date: COPD (chronic obstructive pulmonary disease) (HCC) No date: DVT (deep venous thrombosis) ([facility]) Comment: remote No date: Esophageal reflux 10/31/2018: History of cardioversion No date: HTN (hypertension) No date: Irritable bowel syndrome 09/14/2018: Left carotid bruit Comment: noted by cardiology 11/08/2016: Left ventricular systolic dysfunction No date: Other specified abdominal hernia without obstruction or gangrene No date: PONV (postoperative nausea and vomiting) No date: S/P cervical spinal fusion No date: Scoliosis ALLERGIES Allergen Reactions Cardizem [Diltiazem* Swelling Codeine Vomiting Ringing in Ears. Entex [Phenylephrin* Rash Etodolac Other: See Comments Heart palpitations Meloxicam Other: See Comments Heart palpitations Naproxen Swelling Possible allergy? Pt relates to naproxen Tape [Adhesive Tape* Rash Trazodone Other: See Comments rapid hear beat Zantac [Ranitidine * Rash, Swelling nystatin (MYCOSTATIN) 100,000 unit/mL suspension Take 5 mL by mouth four times daily. 1tsp swish in mouth for several minutes, then swallow (or expectorate) 4 times daily until gone. omeprazole (PRILOSEC) 40 mg capsule Take 1 capsule by mouth once daily. metoprolol succinate ER (TOPROL XL) 50 mg 24 hr tablet Take 1 tablet by mouth two times a day. (Patient taking differently: Take 25 mg by mouth two times a day.) dqmwqikpgcw-qzfaohfjn-lshkhehl (TRELEGY ELLIPTA) 100-62.5-25 mcg inhalation powder Inhale 1 Puff as instructed once daily. flecainide (TAMBOCOR) 100 mg tablet Take 1 tablet by mouth two times a day. fluticasone (FLONASE) 50 mcg/actuation nasal spray Use 2 Sprays in each nostril once daily. Rinse mouth after use. JARDIANCE 10 mg tablet Take 10 mg by mouth once daily. Ipratropium (ATROVENT) 17 mcg/actuation inhaler Inhale 2 Puffs as instructed every 6 hours as needed for wheezing/shortness of breath. furosemide (LASIX) 40 mg tablet Take 1 [...] 1,000 mg by mouth five times daily. [id number]-BLJN ORAL Take by mouth. sucralfate (CARAFATE) 100 mg/mL suspension Take 10 mL by mouth before meals and at bedtime. (560cc=2wks) (Patient not taking: Reported on 12/15/2023) Social History Tobacco Use Smoking status: Former Packs/day: 2.00 Years: 35.00 Additional pack years: 0.00 Total pack years: 70.00 Types: Cigarettes Quit date: 11/09/2005 Years since quittin.1 Smokeless tobacco: Never Tobacco comments: Stopped smoking 12/2005 Vaping Use Vaping Use: Never used Substan (more content not included)...[facility]08-05-2024 Note HNO ID: [id number] Author: EMILY OLIVEIRA RPFT Service: ? Author Type: Respiratory Therapist Type: Progress Notes Filed: 12/15/2023 09:11 Note Text: PULM FUNCTION: Provider: Laith Montes MD Assisting Tech: Emily Oliveira RPFT [facility] of Present illness Narrative* Emily Oliveira RPFT - 12/15/2023 8:56 AM EDT PULM FUNCTION: Provider: Laith Montes MD Assisting Tech: Emily Oliveira RPFT Spirometry: 1 documented in this encounterK[facility]06-13-2024 Telephone encounter Note * Telephone Encounter - Felicitas Glover LPN 10/23/2023 7:41 AM EDT Prescription Refill Information The patient has been identified by name and date of : Yes Caregiver verified no other encounters exist for this prescription request: Yes Caregiver confirmed with patient/requestor that no other refills are due, in the near future, with this provider at this time: Yes The last office visit in the department: 09/29/23 Does the patient have a future office visit with this provider/department: Yes Requested Prescriptions Pending Prescriptions Disp Refills nystatin (MYCOSTATIN) 100,000 unit/mL suspension 200 mL 0 Sig: Take 5 mL by mouth four times daily. 1tsp swish in mouth for several minutes, then swallow (orexpectorate) 4 times daily until gone. Felicitas Glover LPN October 23, 2023 7:41 AM [facility]06-13-2024 Miscellaneous Notes* Telephone Encounter - Felicitas Glover LPN - 10/23/2023 7:41 AM EDT Prescription Refill Information The patient has been identified by name and date of : Yes Caregiver verified no other encounters exist for this prescription request: Yes Caregiver confirmed with patient/requestor that no other refills are due, in the near future, with this provider at this time: Yes The last office visit in the department: 09/29/23 Does the patient have a future office visit with this provider/department: Yes Requested Prescriptions Pending Prescriptions Disp Refills nystatin (MYCOSTATIN) 100,000 unit/mL suspension 200 mL 0 Sig: Take 5 mL by mouth four times daily. 1tsp swish in mouth for several minutes, then swallow (orexpectorate) 4 times daily until gone. Felicitas Glover LPN October 23, 2023 7:41 AM documented in this encounterK[facility]2024 History of Present illness Narrative* Elio, SORAYA Snow[employer] - 09/29/2023 11:55 AM EDT CC: Patient presents with: Follow Up HPI Elizabeth Persaud is a 78 year old female who presents today for routine follow up. Still with a dermatitis to chest from usage of chemo cream. Stopped cream 2 weeks ago and using aquaphor as told to use by dermatology. HTN/A-fib/CHF: Ms. Persaud indicates that she is feeling well and denies any symptoms referable to elevated blood pressure. Specifically denies headache, chest pain, and peripheral edema. Patient denies any side effects of her medication(s) and is compliant with their regimen. She does check BP's away from this office with average BP's in the 110-20s/70s range. 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 She watches her diet for sodium, low fat and low cholesterol most of the time. Awaiting an ablation at [facility] as she has palpitations and SOB due to her a- fib. Sees [facility] and recently had her valsartan stopped as they were increasing her metoprolol to help control her HR. Last 3 Encounter BP Readings: Date: BP: 09/29/2023 124/70 09/05/2023 126/80 08/18/2023 106/54 COPD; Has not needed her albuterol inhaler or home oxygen in months. Denies cough, wheezing, fever,or chills. Barretts esophagus: Denies any heartburn, abdominal pain, nausea, or difficulty swallowing on omeprazole. REVIEW OF SYSTEMS See HPI PAST MEDICAL [...] surgery with implants- Dr Jacob Aguilar at [facility] PAST SURGICAL HISTORY OF 07/27/2015 cryo ablation, cardiac RPR UMBILICAL HRNA 5 YRS/> REDUCIBLE 07/17/2010 Hernia repair, umbilical >5yr [facility] Dr Manuel Hoover SHX COSMETIC SURGERY SKIN BIOPSY HX ALLERGIES Cardizem [Diltiazem Hcl], Codeine, Entex [Phenylephrine-Guaifenesin], Etodolac, Meloxicam, Naproxen, Tape [Adhesive Tape (Rosins)], Trazodone, and Zantac [Ranitidine Hcl] MEDICATIONS vnpxnihbmpv-bfbnialvq-bbupwrsh (TRELEGY ELLIPTA) 100-62.5-25 mcg inhalation powder Inhale 1 Puff asinstructed once daily. diclofenac, EC, (VOLTAREN) 75 mg EC tablet Takes once daily PRN for acute pain/inflammation. Take with food. sucralfate (CARAFATE) 100 mg/mL suspension Take 10 mL by mouth before meals and at bedtime. (560cc=2wks) nystatin (MYCOSTATIN) 100,000 unit/mL suspension Take 5 mL by mouth four times daily. 1tsp swish inmouth for several minutes, then swallow (or expectorate) 4 times daily until gone. flecainide (TAMBOCOR) 100 mg tablet Take 1 tablet by mouth two times a day. valsartan (DIOVAN) 40 mg tablet Take 1 tablet by mouth once daily. fluticasone (FLONASE) 50 mcg/actuation nasal spray Use 2 Sprays in each nostril once daily. Rinse mouth after use. JARDIANCE 10 mg tablet Take 10 mg by mouth once daily. metoprolol succinate ER (TOPROL XL) 25 mg 24 hr tablet Take 0.5 tablets by mouth twice daily. (Patient taking differently: Take 50 mg by mouth two times a day.) Ipratropium (ATROVENT) 17 mcg/actuation inhaler Inhale 2 [...] mid back (Patient not taking: Reported on 09/05/2023) furosemide (LASIX) 40 mg tablet Take 1 tablet by mouth twice daily. (Patient taking differently: Take 40 mg by mouth once daily. Take another dose daily as needed for leg swelling) sucralfate (CARAFATE) 1 gram tablet Take 1 tablet by mouth before meals and at bedtime. (Patient not taking: Reported on 09/05/2023) apixaban (ELIQUIS) 5 mg tab(s) Take by [...] 1,000 mg by mouth five times daily. EQWRQQP-MUXIONZJT-SIFN ORAL Take by mouth. FAMILY HISTORY Problem Relation Age of Onset Hypertension Mother Stroke Mother Coronary Artery Disease Father other (wilsons disease) Brother other (VINCE'S DISEASE) Brother Liver dse, cirrhosis Social History Tobacco Use Smoking status: Former Packs/day: 2.00 Years: 35.00 Additional pack years: 0.00 Total pack years: 70.00 Types: Cigarettes Quit date: 11/09/2005 Years since quittin.8 Smokeless tobacco: Never Tobacco comments: Stopped smoking 12/2005 Vaping Use Vaping Use: Never used Substance Use Topics Alcohol use: Not Currently Drug use: No PHYSICAL EXAM BP 124/70 (BP Site: Right Arm, BP Position: Sitting, BP Cuff Size: Regular Adult) Pulse 111 Temp (!) 35.6 C (96 F) Resp 12 Ht 154.9 cm (5' 1) Wt 59.4 kg (131 lb) SpO2 98% BMI 24.75 kg/m General Appearance: well appearing, in no acute distress, alert Pysch: mood and affect broad and appropriate Skin: scabbed healing dermatitis to upper chest region without drainage, red streaking, edema or increased warmth. Eyes: conjunctiva pink and moist, no icterus, sclera white, non-injected Lungs: Lungs clear to auscultation. No wheezing, rhonchi, rales. Heart: RRR without murmur, gallop, or rubs. No ectopy Health maintenance reviewed with patient: BP Controlled (<130/80) Never done Behavioral Health Screening Never done Shingrix Vaccine(3 of 3) due on 02/11/2024 Covid-19 Vaccine(2022- season) due on 02/11/2024 RSV Vaccine(1 - 1-dose 60+ series) due on 03/31/2024 Annual PCP Team Chronic Disease Visit due on 06/30/2024 Diabetes Screening due on 12/26/2025 DTaP,Tdap,Td Vaccine(2 - Td or Tdap) due on 09/04/2033 Bone Density Screening Completed Spirometry Completed Influenza Vaccine Completed Advance Directive Discussion Completed Hepatitis C Screening Completed Pneumococcal Vaccine: 65+ Completed HPV Vaccine Aged Out Mammogram Screening Discontinued Colorectal Cancer Screening Discontinued DATA REVIEWED: No new labs ASSESSMENT/PLAN: 1. Paroxysmal atrial fibrillation (HCC) - ICD9: 427.31, ICD10: I48.0 (primary diagnosis) Stable but symptomatic. Continue with recommendations by cardiology and upcoming ablation. Go to ER for increased SOB, chest pain, or any other urgent concern. - COMPREHENSIVE METABOLIC PANEL - COMPLETE BLOOD COUNT 2. Congestive heart failure, unspecified HF chronicity, unspecified heart failure type (HCC) - ICD9: 428.0, ICD10: I50.9 Asymptomatic Continue with recommendations by cardiology - COMPREHENSIVE METABOLIC PANEL - COMPLETE BLOOD COUNT 3. Primary hypertension - ICD9: 401.9, ICD10: I10 - Controlled - Continue current medications - Recommend home blood pressure monitoring, to bring results to next visit - Encouraged sodium restriction, DASH or Mediterranean diet - Recommend regular aerobic exercise - COMPREHENSIVE METABOLIC PANEL - COMPLETE BLOOD COUNT 4. Chronic obstructive pulmonary disease with acute exacerbation (HCC) - ICD9: 491.21, ICD10: J44.1 Stable Continue with current medications and recommendations by pulmonology 5. 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 - ICD9: 530.85, ICD10: K22.70 Stable with current treatment 6. Dermatitis - ICD9: 692.9, ICD10: L30.9 - continue with aquaphor - no signs of infection Keep upcoming appointment with dermatology 7. Lipid screening - ICD9: V77.91, ICD10: Z13.220 - LIPID PANEL BASIC - COMPREHENSIVE METABOLIC PANEL Prescription instructions reviewed with patient as applicable. Potential red flag symptoms discussed with the patient. Reviewed appropriate action plan to take if red flag symptoms occur. Patient agreeable to treatment plan. Dianna Ballard APRN.CNP documented in this encounterK[facility]04-26-2024 History of Present illness Narrative* Katheryn Stokes MD - 09/05/2023 11:00 AM EDT FOLLOW UP VISIT - ENDOSCOPY NAME: Elizabeth Persaud [facility] NO.: [id number] DATE OF SERVICE: 09/05/2023 : 1945 REFERRING PHYSICIAN: Minerva Shaver MD Elizabeth is a patient I am following for dysphagia. I performed upper endoscopy on August 18, 2023. The patient was found to have: Impression: - Normal examined jejunum. Biopsied. - Gastritis. Biopsied. 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 Biopsied. Pathology demonstrated: FINAL DIAGNOSIS A. Stomach, antrum, biopsy: - Antral reactive gastropathy. - No morphological evidence of Helicobacter pylori organisms. - No evidence of intestinal metaplasia or dysplasia. B. Esophagus, lower, biopsy: - Inflamed gastric cardia-type mucosa. - No evidence of intestinal metaplasia or dysplasia. C. Esophagus, lower, biopsy: - Squamous epithelium with no significant diagnostic alteration. - Inflamed gastric cardia-type mucosa. - No evidence of intestinal metaplasia or dysplasia. The patient notes some continued complaints since the procedure. Last year the patient was taking Pepcid, Prilosec, and Carafate. She was still noting symptoms. In discussions today it sounds like she has stopped taking the Prilosec and she is taking Pepcid Complete and notes relief instantly. In fact, she notes relief at the same amount of time it took for her to get relief when she was just taking Maalox. We discussed that most likely the resolution of her symptoms is from the Maalox not the Pepcid and that I would prefer if she was taking Prilosec. VITALS: There were no vitals taken for this visit. On examination, the abdomen is benign. Assessment IMPRESSION: Moses's esophagitis visually and by history, gastritis, still epigastric symptoms PLAN: If the patient notes any problems or changes in bowel function, the patient should contact me immediately. Otherwise I recommend follow up endoscopy in 3 years. We have discussed her stopping the Pepcid and taking the Prilosec for the next 3 to 4 weeks. She should continue her Carafate suspension. If her symptoms are not more improved with Prilosec once a day, I would increase it to twice a day. If her symptoms are relieved on Prilosec I would work on weaning the Carafate to see if we can get her down to 1 medication. Diagnoses: (R13.10) Dysphagia, unspecified type (primary encounter diagnosis) Return to Clinic: The patient is instructed to follow-up with me as needed Katheryn Stokes MD documented in this encounterK[facility]04-10-2024 Miscellaneous Notes* Telephone Encounter - Katheryn Stokes MD - 08/20/2023 9:13 AM EDT FOLLOW UP ENDOSCOPY - RESULTS AND RECOMMENDATIONS NAME: Elizabeth Persaud CLINIC NO.: [id number] : 1945 DATE: August 20, 2023 PRIMARY CARE PROVIDER: Minerva Shaver MD Elizabeth Persaud is a patient referred for endoscopy for dysphagia. I performed lower endoscopy on August 18, 2023. The patient was found to have: Upper Endoscopy Impression: - Normal examined jejunum. Biopsied. - Gastritis. Biopsied. 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 Biopsied. Pathology demonstrated: FINAL DIAGNOSIS A. Stomach, antrum, biopsy: - Antral reactive gastropathy. - No morphological evidence of Helicobacter pylori organisms. - No evidence of intestinal metaplasia or dysplasia. B. Esophagus, lower, biopsy: - Inflamed gastric cardia-type mucosa. - No evidence of intestinal metaplasia or dysplasia. C. Esophagus, lower, biopsy: - Squamous epithelium with no significant diagnostic alteration. - Inflamed gastric cardia-type mucosa. - No evidence of intestinal metaplasia or dysplasia. IMPRESSION: Esophagitis suspicious for Moses's esophagitis PLAN: INSTRUCTIONS FOR PEPTIC ULCER DISEASE - ESOPHAGITIS I discussed with you the findings of your upper endoscopy. Your upper endoscopy demonstrated esophagitis Esophagitis may be a form of peptic irritation, with acid moving from the stomach to the esophagus (gastroesophageal reflux) Factors that increase acid production include smoking and stress. If you smoke, stopping smoking will often cure these issues without needing other medications. Over the counter medications including antiacids and acid reducing medications including H2 blockers (Zantac and the like) and proton pump inhibitors (prilosec, prevacid and the like) neutralize or prevent acid production. Prescription strength proton pump inhibitors (PPIs) may be necessary if your symptoms persist. Carafate may be added to PPI treatment in refractory cases. Avoiding smoking, alcohol and antiinflammatory medications are important in the successful treatment of reflux esophagitis and peptic diseases. Other factors that contribute to GERD and esophagitis are being overweight, eating large meals before laying down and certain foods. Weight loss will help improve many GERD complaints. Remaining upright after eating large meals and having a small supper will also help symptoms. Avoiding food that contribute to reflux - chocolate, caffeine, cheddar cheese may also help. Follow up upper endoscopy may be recommended to assure healing of the esophagus. New or worsening symptoms such are epigastric pain, burning, difficulty swallowing or food stickingshould be relayed to your physician. Feeling full early after eating, or black, tarry, foul smelling stools are also worrisome. If you have any difficulties or concerns, you should contact our office immediately. The patient is instructed to follow-up with me in a few weeks I have instructed my staff to forward the above information to the patient and to the appropriate providers [facility] History and physical note * Katheryn Stokes MD - 08/18/2023 12:00 PM EDT UPDATED PROCEDURAL SEDATION HISTORY AND PHYSICAL EXAMINATION SERVICE DATE: 08/18/2023 SERVICE TIME: 11:22 AM PHYSICAL EXAM MUST BE COMPLETED ON ADMISSION PROCEDURE: Procedure Indications: The History and Physical (completed in the past 30 days) has been reviewed and the patient has beenexamined. The contents accurately reflect the patient's condition with the following additions or revisions since the H&P was completed. ASA Class: ASA Class:: Patient with mild systemic disease Examination indicates no changes. AIRWAY: Airway Visualization of Uvula: Yes Mouth opening greater than 2 fingerbreadths: Yes Neck Full Range of Motion: Yes LUNGS: Lungs clear to auscultation CARDIAC: Regular rhythm,Regular rate Provisional Diagnosis/Treatment Plan: EGD - dysphagia, history of Moses's esophagitis SEDATION GOAL: Moderate This H&P can be found in the attached. SIGNATURE: Katheryn Stokes MD PATIENT NAME: Elizabeth Persaud DATE: August 18, 2023 TIME: 11:22 AM Source Note - Katheryn Stokes MD - 08/18/2023 12:00 PM EDT Images from the original note were not included. HISTORY AND PHYSICAL Elizabeth Persaud 1945 REFERRING PHYSICIAN: No ref. provider found CHIEF COMPLAINT: Consult (Bloody stools) HPI: The patient is a 78 year old female referred for endoscopy. Elizabeth notes worsening issues with dysphagia. The patient notes a history of epigastric and upper abdominal discomfort. She notes the symptoms tend to come and go. She notes an episode of blood in her stool 1 week previously with pain prior to the bowel movement.She had looser stools at that time and then streaked with blood has had no blood or lower issues since that time. Elizabeth notes a history of a hiatal hernia and reflux. The patient had been doing well with the reflux but now notes that she occasionally feels like she has a lump or discomfort in her epigastrium without true pain and occasionally notes that food sticks. [facility] food sticking in her upper esophagus. This performed on May 07, 2022. Report from the study demonstrated: Mild oropharyngeal phase dysphagia with decreased bolus controlwith some spilling into the piriform area observed [...] on November 22, [address] Carmencita Vázquez. He noted on upper endoscopy Impression: - Savary-Persaud Grade I reflux esophagitis. Biopsied. - Normal stomach. Biopsied. - Normal examined duodenum. Lower endoscopy: Impression: - Four 5 mm polyps at 20 cm proximal to the anus and at 30 cm proximal to the anus. Resected and retrieved. - Diverticulosis in the sigmoid colon and in the descending colon. - External and internal hemorrhoids. Pathology demonstrated: Scleroscope Tester Spec[facility] Specimen #: [id number] Submitting Physician: CARMENCITA CORDOBA MD FINAL DIAGNOSIS 1. Gastric antrum, [...] me today at the request of Dr. Minerva Shaver MD for my opinion and advice regarding epigastric/reflux symptoms and desire for follow-up colonoscopy given when the patientwas told she should undergo follow- up endoscopy. Here the patient also notes that [...] the Carafate prescription but her pharmacy was outof that medication. She notes that in the [...] that often eating makes her discomfort better. The patient is being seen by me today at the request of Dr. 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 The patient had a transient ischemic attack in July 2022. She has multiple medical comorbidities. She is currently taking anticoagulants-Eliquis PAST MEDICAL HISTORY PAST MEDICAL HISTORY Diagnosis Date Anxiety Arthritis [...] cervical spinal fusion Scoliosis PAST SURGICAL HISTORY PAST SURGICAL HISTORY Procedure Laterality Date BREAST [...] surgery with implants- Dr Jacob Aguilar at [facility] PAST SURGICAL HISTORY OF 07/27/2015 cryo ablation, cardiac RPR UMBILICAL HRNA 5 YRS/> REDUCIBLE 07/17/2010 Hernia repair, umbilical >5yr [facility] Dr Manuel Hoover SHX COSMETIC SURGERY SKIN BIOPSY HX CURRENT MEDICATIONS Current Outpatient Medications Medication Sig flecainide (TAMBOCOR) 100 mg tablet Take 1 [...] mg by mouth two times a day.) xssurqdxtrd-mmqublyff-lrddmxfx (TRELEGY ELLIPTA) 100-62.5-25 mcg inhalation powder Inhale 1 Puff asinstructed once daily. Ipratropium (ATROVENT) 17 mcg/actuation inhaler [...] 1,000 mg by mouth five times daily. [id number] ORAL Take by mouth. lidocaine (LIDODERM) 5 % Apply 1 Patch as directed every 24 hours. Apply patch for 12 hours, remove, and then wait 12 more hours before applying a new patch. Location: mid back (Patient not taking: Reported on 05/30/2023) sucralfate (CARAFATE) 1 gram tablet Take 1 tablet by mouth before meals and at bedtime. No current facility-administered medications for this visit. ALLERGIES: Cardizem [Diltiazem Hcl], Codeine, Entex [Phenylephrine-Guaifenesin], Etodolac, Meloxicam, Naproxen, Tape [Adhesive Tape (Rosins)], Trazodone, and Zantac [Ranitidine Hcl] PERSONAL HISTORY: SOCIAL HISTORY Social History Tobacco Use Smoking status: Former Packs/day: 2.00 Years: 35.00 Additional pack years: 0.00 Total pack years: 70.00 Types: Cigarettes Quit date: 11/09/2005 Years since quittin.5 Smokeless tobacco: Never Tobacco comments: Stopped smoking 12/2005 Vaping Use Vaping Use: Never used Substance Use Topics Alcohol use: Not Currently Drug use: No FAMILY HISTORY: FAMILY HISTORY FAMILY HISTORY Problem Relation Age of Onset Hypertension Mother Stroke Mother Coronary Artery Disease Father other (wilsons disease) Brother other (VINCE'S DISEASE) Brother Liver dse, cirrhosis REVIEW OF SYMPTOMS: The review of systems data was entered by the nurse and reviewed by ky Nursing Notes: Genna Montes LPN 05/30/2023 10:10 AM Signed REVIEW OF SYSTEMS: General: The patient denies fatigue, denies weight loss, denies weight gain, denies feeling hot, and denies feelings of cold. Eyes: The patient denies glaucoma, NOTES eye injury/surgery, wears glasses or contacts. Ear/Nose/Throat: The patient NOTES allergies, denies hayfever, denies ear infections, and denies bloody noses. Cardiovascular: The patient NOTES chest pain, NOTES heart disease, NOTES high blood pressure,deniescardiac stent, denies prior heart attack, NOTES irregular heart beat, NOTES high cholesterol, denies poor circulation, denies heart failure, other cardiac issues, denies claudication, denies cold feet, denies peripheral arterial stent. Respiratory: The patient denies tuberculosis, NOTES pneumonia, denies frequent cough, denies pulmonary embolism, NOTES shortness of breath, and denies coughing up blood. Gastrointestinal: The patient NOTES difficulty swallowing, NOTES acid reflux, denies ulcers, deniesvomiting, denies jaundice/hepatitis, NOTES gallbladder problems, NOTES black or tarry stools, denies hemorrhoids, NOTES bleeding from rectum, denies diverticulitis, denies constipation, denies diarrhea, denies loss of stool control, and NOTES hernias. Kidney/Bladder: The patient NOTES kidney stones, denies urine infections, and denies bloody urine. Skin: The patient NOTES a history of skin cancer, denies bleeding/changing moles, and denies a history of skin rash. Neurologic: The patient denies a history of epilepsy/convulsions, NOTES headaches, NOTES head/spinal injuries, and denies stroke/TIA. Psychiatric: The patient denies psychiatric medications, denies depression, and denies voices, denies substance abuse. Endocrine: The patient denies thyroid disorders, denies diabetes, and denies hormonal problems. Hematologic: The patient denies a history of bruising, denies bleeding, and denies anemia, denies blood clots. Infections: The patient NOTES a history of measles and mumps, denies rheumatic fever, and denies sexually transmitted diseases. Musculoskeletal: The patient NOTES back pain/injury, NOTES back problems, NOTES sciatica, denies knee/foot trouble, NOTES arthritis, or NOTES gout. When was patient's last Mammogram screening? 2019 Last Colonoscopy: 2022 Genna Montes LPN PHYSICAL EXAMINATION: General: The patient is 78 year old female, well nourished, well hydrated in no acute distress. Thepatient is oriented to time, place, and person. VITALS: Blood pressure 118/84, pulse (!) 54, temperature 36.4 C (97.5 F), height 154.9 cm (5' 1), weight 61.1 kg (134 lb 12.8 oz), SpO2 96%. Body mass index is 25.47 kg/m . HEENT: Normal cephalic, ataumatic, pupils are equally round, sclera are anicteric, mucous membranesare moist, oropharynx is clear. Neck has no masses, asymmetry or lymphadenopathy. Thyroid is unremarkable. Respiratory: Clear to auscultation and percussion. Normal respiratory excursion and pattern. Cardiac: Examination is regular rate and rhythm. Abdominal exam: Soft, nontender, with no palpable masses. No hepatosplenomegaly. No palpable hernias. Rectal exam: exam deferred Extremities: no clubbing, cyanosis or edema. No adenopathy. Other: LABORATORY VALUES: As Noted RADIOLOGIC STUDIES: As Noted Assessment IMPRESSION: Dysphagia, epigastric pain PLAN: I plan to perform upper endoscopy. We discussed the risks and benefits [...] patient freely consents to surgery. I plan for monitored anesthetic care. Diagnoses: (R13.10) Dysphagia, unspecified type (primary encounter diagnosis) My findings have been communicated to Dr. Minerva Shaver MD via shared medical record. This note will be forwarded to Dr. Minerva Shaver MD. Return to Clinic: The patient is instructed to follow-up with me after the testing has been completed. Katheryn Stokes MD * Katheryn Stokes MD - 08/18/2023 12:00 PM EDT Images from the original note were not included. HISTORY AND PHYSICAL Elizabeth Persaud 1945 REFERRING PHYSICIAN: No ref. provider found CHIEF COMPLAINT: Consult (Bloody stools) HPI: The patient is a 78 year old female referred for endoscopy. Elizabeth notes worsening issues with dysphagia. The patient notes a history of epigastric and upper abdominal discomfort. She notes the symptoms tend to come and go. She notes an episode of blood in her stool 1 week previously with pain prior to the bowel movement.She had looser stools at that time and then streaked with blood has had no blood or lower issues since that time. Elizabeth notes a history of a hiatal hernia and reflux. The patient had been doing well with the reflux but now notes that she occasionally feels like she has a lump or discomfort in her epigastrium without true pain and occasionally notes that food sticks. [facility] noted was demonstrating food sticking in her upper esophagus. This performed on May 07, 2022. Report from the study demonstrated: Mild oropharyngeal phase dysphagia with decreased bolus controlwith some spilling into the piriform area observed [...] on November 22, [address] Carmencita Vázquez. He noted on upper endoscopy Impression: - Brianne Grade I reflux esophagitis. Biopsied. - Normal stomach. Biopsied. - Normal examined duodenum. Lower endoscopy: Impression: - Four 5 mm polyps at 20 cm proximal to the anus and at 30 cm proximal to the anus. Resected and retrieved. - Diverticulosis in the sigmoid colon and in the descending colon. - External and internal hemorrhoids. Pathology demonstrated: Scleroscope Tester Specimen [facility] Specimen #: [id number] Submitting Physician: CARMENCITA CORDOBA MD FINAL DIAGNOSIS 1. Gastric antrum, [...] me today at the request of Dr. Minerva Shaver MD for my opinion and advice regarding epigastric/reflux symptoms and desire for follow-up colonoscopy given when the patientwas told she should undergo follow- up endoscopy. Here the patient also notes that [...] the Carafate prescription but her pharmacy was outof that medication. She notes that in the [...] that often eating makes her discomfort better. The patient is being seen by me today at the request of Dr. 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 The patient had a transient ischemic attack in July 2022. She has multiple medical comorbidities. She is currently taking anticoagulants-Eliquis PAST MEDICAL HISTORY PAST MEDICAL HISTORY Diagnosis Date Anxiety Arthritis [...] cervical spinal fusion Scoliosis PAST SURGICAL HISTORY PAST SURGICAL HISTORY Procedure Laterality Date BREAST [...] surgery with implants- Dr Jacob Aguilar at [facility] PAST SURGICAL HISTORY OF 07/27/2015 cryo ablation, cardiac RPR UMBILICAL HRNA 5 YRS/> REDUCIBLE 07/17/2010 Hernia repair, umbilical >5yr [facility] Dr Manuel Hoover SHX COSMETIC SURGERY SKIN BIOPSY HX CURRENT MEDICATIONS Current Outpatient Medications Medication Sig flecainide (TAMBOCOR) 100 mg tablet Take 1 [...] mg by mouth two times a day.) tikwjlwludk-loghwanzd-ksyodoqb (TRELEGY ELLIPTA) 100-62.5-25 mcg inhalation powder Inhale 1 Puff asinstructed once daily. Ipratropium (ATROVENT) 17 mcg/actuation inhaler [...] 1,000 mg by mouth five times daily. [id number] ORAL Take by mouth. lidocaine (LIDODERM) 5 % Apply 1 Patch as directed every 24 hours. Apply patch for 12 hours, remove, and then wait 12 more hours before applying a new patch. Location: mid back (Patient not taking: Reported on 05/30/2023) sucralfate (CARAFATE) 1 gram tablet Take 1 tablet by mouth before meals and at bedtime. No current facility-administered medications for this visit. ALLERGIES: Cardizem [Diltiazem Hcl], Codeine, Entex [Phenylephrine-Guaifenesin], Etodolac, Meloxicam, Naproxen, Tape [Adhesive Tape (Rosins)], Trazodone, and Zantac [Ranitidine Hcl] PERSONAL HISTORY: SOCIAL HISTORY Social History Tobacco Use Smoking status: Former Packs/day: 2.00 Years: 35.00 Additional pack years: 0.00 Total pack years: 70.00 Types: Cigarettes Quit date: 11/09/2005 Years since quittin.5 Smokeless tobacco: Never Tobacco comments: Stopped smoking 12/2005 Vaping Use Vaping Use: Never used Substance Use Topics Alcohol use: Not Currently Drug use: No FAMILY HISTORY: FAMILY HISTORY FAMILY HISTORY Problem Relation Age of Onset Hypertension Mother Stroke Mother Coronary Artery Disease Father other (wilsons disease) Brother other (VINCE'S DISEASE) Brother Liver dse, cirrhosis REVIEW OF SYMPTOMS: The review of systems data was entered by the nurse and reviewed by me Nursing Notes: Genna MontesAMELIA 05/30/2023 10:10 AM Signed REVIEW OF SYSTEMS: General: The patient denies fatigue, denies weight loss, denies weight gain, denies feeling hot, and denies feelings of cold. Eyes: The patient denies glaucoma, NOTES eye injury/surgery, wears glasses or contacts. Ear/Nose/Throat: The patient NOTES allergies, denies hayfever, denies ear infections, and denies bloody noses. Cardiovascular: The patient NOTES chest pain, NOTES heart disease, NOTES high blood pressure,deniescardiac stent, denies prior heart attack, NOTES irregular heart beat, NOTES high cholesterol, denies poor circulation, denies heart failure, other cardiac issues, denies claudication, denies cold feet, denies peripheral arterial stent. Respiratory: The patient denies tuberculosis, NOTES pneumonia, denies frequent cough, denies pulmonary embolism, NOTES shortness of breath, and denies coughing up blood. Gastrointestinal: The patient NOTES difficulty swallowing, NOTES acid reflux, denies ulcers, deniesvomiting, denies jaundice/hepatitis, NOTES gallbladder problems, NOTES black or tarry stools, denies hemorrhoids, NOTES bleeding from rectum, denies diverticulitis, denies constipation, denies diarrhea, denies loss of stool control, and NOTES hernias. Kidney/Bladder: The patient NOTES kidney stones, denies urine infections, and denies bloody urine. Skin: The patient NOTES a history of skin cancer, denies bleeding/changing moles, and denies a history of skin rash. Neurologic: The patient denies a history of epilepsy/convulsions, NOTES headaches, NOTES head/spinal injuries, and denies stroke/TIA. Psychiatric: The patient denies psychiatric medications, denies depression, and denies voices, denies substance abuse. Endocrine: The patient denies thyroid disorders, denies diabetes, and denies hormonal problems. Hematologic: The patient denies a history of bruising, denies bleeding, and denies anemia, denies blood clots. Infections: The patient NOTES a history of measles and mumps, denies rheumatic fever, and denies sexually transmitted diseases. Musculoskeletal: The patient NOTES back pain/injury, NOTES back problems, NOTES sciatica, denies knee/foot trouble, NOTES arthritis, or NOTES gout. When was patient's last Mammogram screening? 2018 Last Colonoscopy: 2022 Genna Montes LPN PHYSICAL EXAMINATION: General: The patient is 78 year old female, well nourished, well hydrated in no acute distress. Thepatient is oriented to time, place, and person. VITALS: Blood pressure 118/84, pulse (!) 54, temperature 36.4 C (97.5 F), height 154.9 cm (5' 1), weight 61.1 kg (134 lb 12.8 oz), SpO2 96%. Body mass index is 25.47 kg/m . HEENT: Normal cephalic, ataumatic, pupils are equally round, sclera are anicteric, mucous membranesare moist, oropharynx is clear. Neck has no masses, asymmetry or lymphadenopathy. Thyroid is unremarkable. Respiratory: Clear to auscultation and percussion. Normal respiratory excursion and pattern. Cardiac: Examination is regular rate and rhythm. Abdominal exam: Soft, nontender, with no palpable masses. No hepatosplenomegaly. No palpable hernias. Rectal exam: exam deferred Extremities: no clubbing, cyanosis or edema. No adenopathy. Other: LABORATORY VALUES: As Noted RADIOLOGIC STUDIES: As Noted Assessment IMPRESSION: Dysphagia, epigastric pain PLAN: I plan to perform upper endoscopy. We discussed the risks and benefits [...] patient freely consents to surgery. I plan for monitored anesthetic care. Diagnoses: (R13.10) Dysphagia, unspecified type (primary encounter diagnosis) My findings have been communicated to Dr. Minerva Shaver MD via shared medical record. This note will be forwarded to Dr. Minerva Shaver MD. Return to Clinic: The patient is instructed to follow-up with me after the testing has been completed. Katheryn Stokes MD documented in this [facility]04-08-2024 Nurse Note* Ammy Baer, RN - 08/18/2023 10:49 AM EDT Other: 1030 Dr. Walker aware pt took Jardiance yesterday 08/17/23 at 1230. Also Eliquis 08/17/23 as well. Plans are to go ahead with procedure. documented in this [facility]03-25-2024 Miscellaneous Notes* Telephone Encounter - Veronica Bowling MA - 08/04/2023 9:04 AM EDT Patient electronically requesting refills as follows: Requested Prescriptions Pending Prescriptions Disp Refills ohezuectnqo-jsigfwqmi-yccgqfyk (TRELEGY ELLIPTA) 100-62.5-25 mcg inhalation powder 1 Each 5 Sig: Inhale 1 Puff as instructed once daily. Please review and advise. Veronica Bowling MA documented in this [facility]03-04-2024 Miscellaneous Notes* Telephone Encounter - Felicitas Glover LPN - 07/14/2023 11:20 AM EST Patient has been identified by name and date of : No Patient phones for refill(s): Requested Prescriptions Pending Prescriptions Disp Refills diclofenac, EC, (VOLTAREN) 75 mg EC tablet 30 tablet 1 Sig: Takes once daily PRN for acute pain/inflammation. Take with food. Date of last office visit in primary care: 04/29/2019 Date of next office visit in primary care: Visit date not found Please advise. Thank you. Felicitas Glover LPN. [facility] Miscellaneous Notes* Telephone Encounter - Felicitas Glover LPN - 07/14/2023 11:19 AM EST Patient has been identified by name and date of : No Patient phones for refill(s): Requested Prescriptions Pending Prescriptions Disp Refills sucralfate (CARAFATE) 100 mg/mL suspension 414 mL 5 Sig: Take 10 mL by mouth before meals and at bedtime. (560cc=2wks) Date of last office visit in primary care: 06/30/2023 Date of next office visit in primary care: 09/29/2023 Please advise. Thank you. Felicitas Glover LPN. [facility] [facility]02-23-[address] [facility]02-19-2024 History of Present illness Narrative* Dianna Ballard APRN.[employer] - 06/30/2023 11:44 AM EST CC: Patient presents with: Recheck: 3 month follow up HPI Elizabeth Persaud is a 78 year old female who presents today for routine follow up. HTN/Afib/CHF/ CVA last year: Ms. Persaud indicates that she is feeling well and [...] to tongue from CVA but now is worseand nothing tastes as it should. REVIEW OF [...] surgery with implants- Dr Jacob Aguilar at [facility] PAST SURGICAL HISTORY OF 07/27/2015 cryo ablation, cardiac RPR UMBILICAL HRNA 5 YRS/> REDUCIBLE 07/17/2010 Hernia repair, umbilical >5yr [facility] Dr Manuel Hoover SHX COSMETIC SURGERY [...] mg by mouth two times a day.) fzofvyntxdk-sukrqemmm-iwyuxpob (TRELEGY ELLIPTA) 100-62.5-25 mcg inhalation powder Inhale 1 Puff asinstructed once daily. Ipratropium (ATROVENT) 17 mcg/actuation inhaler [...] 1,000 mg by mouth five times daily. [id number]-DHUYFPILD-WXJO ORAL Take by mouth. FAMILY HISTORY Problem Relation Age of Onset Hypertension Mother Stroke Mother Coronary Artery Disease Father other (wilsons disease) Brother other (VINCE'S DISEASE) Brother Liver dse, cirrhosis Social History [...] (132 lb) SpO2 (P) 97% BMI (P) 24.94kg/m General Appearance: well appearing, in no acute [...] Covid-19 Vaccine(4 - season) due on 02/11/2024 RSV Vaccine(1 - [...] symptoms occur. Patient agreeable to treatment plan. 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 June 26, 2023 4:40pm Note Date/Time June 24, 2023 2:36pm [facility] Medical Records Department [address] [place] [address] History & Physical Exam 06/24/23 1435 MR#: [id number] Acct: [id number] Name: ELIZABETH PERSAUD Rep #:[id number] : 1945 78 From: Maxim Ibarra MD PCP: Dr. Minerva Shaver MD Status:PRE S DC Location: [facility] History and Physical Date of Admission: 07/04/23 ELIZABETH PERSAUD, is a 77 F who presents to the cath lab technologist today for a cardioversion. She has a history of previous atrial fibrillation for which she was hospitalizedand underwent a ARIS guided cardioversion.?Patient presented to her PCP in May 2022 with complaints of shortness of breath with minimal exertion and leg weakness. She states her heart rates have been in the 90s while working, and increases to 140 on her recumbent exercise bike. At some point her flecainide had gotten discontinued and she was placed on amiodarone for her atrial fibrillation. She states that she is allergic to amiodarone due to worsening dyspnea on exertion. This was discontinued at her last office visit, and she was placed back on flecainide. She had been scheduled for an outpatient cardioversion on 08/06/2022, but had successfully cardioverted on her own. Patient presented to the emergency room on 08/08/2022 with strokelike symptoms. Patient presented because of facial droop, altered sensation and left sided weakness. She had not missed any doses of her Eliquis. Her heart rate was noted to be low at 38. Her metoprolol and Flecainide were placed on hold at that time.Her heart rate did improve. Her CT of the head without contrast revealed no evidence of subdural, epidural, subarachnoid hemorrhage or intraparenchymal hemorrhage. There was no obvious stroke noted. Her MRI of the brain was also negative. 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 She was later discharged from the hospital and instructed to follow withneurology for suspected stroke due to symptomatology. She states she is scheduled to see vascular-Dr. Persaud at [facility] next week. She was seen in the Emergency Room on 12/31/2022 for shortness of breath. Per EMS report she was noted be80% on room air and placed on CPAP therapy. She received IV Lasix. Her BNP, 394.7, was elevated and her troponin was normal. Her ECG showed sinus rhythm. She was admitted and treated for respiratory failure secondary to acute on chronic congestive heart failure and suspected pneumonia. She underwent an echocardiogram on 12/31/2022 that showed ejection fraction of 60% and moderately enlarged left atrium. She had 24-hour Holter monitor evaluation in May 2023 that showed atrial fibrillation with an average heart rate of 107 bpm. She did not tolerate higherdose of metoprolol on account of low heart rate. On account the rhythm, she will proceed with cardioversion. She does have a history to not telling amiodarone on account of dyspnea. She denies chest, arm, jaw, or neck discomfort. She states episodes of palpitations with heart rates in the 80s. This resolves on its own. She denies bilateral lower extremity edema. She denies claudication. She denies shortnessof breath with activity, shortness of breath at rest, orthopnea, or PND. She denies chronic cough. She denies significant, sudden weight gain. She denies lightheadedness, dizziness, near-syncope, or syncope. She denies blood in urine, blood in stool, or epistaxis. He denies fever with chills. She denies myalgia. She states fatigue. Her exercise level has remained stable. Intake Vital Signs: See EMR Intake Visit Reasons: 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 Is patient in pain?: No Allergies etodolac Allergy (Intermediate, Verified 02/04/23 09:51) Other diltiazem HCl [From Cardizem] Allergy (Verified 02/04/23 09:51) Swelling of face and neck naproxen Allergy (Verified 02/04/23 09:51) Swelling (whole body)prednisone Allergy (Verified 02/04/23 09:51) Other amiodarone Adverse Reaction (Severe, Verified 02/04/23 09:51) Severe dyspnea after taking PO Amiodarone adhesive Adverse Reaction (Verified 02/04/23 09:51) Rash albuterol Adverse Reaction (Verified 02/04/23 09:51) Other codeine Adverse Reaction (Verified 02/04/23 09:51) Vomiting hydrocodone bitartrate [From Vicodin] Adverse Reaction (Verified 02/04/23 09:51) Vomiting morphine Adverse Reaction (Verified 02/04/23 09:51) Vomiting Medications See EMR 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 Non-rheumatic tricuspid valve insufficiency Nonrheumatic aortic valve stenosis Panlobular emphysema Paroxysmal atrial fibrillation Rotator cuff tear Scoliosis of cervical spine Shoulder pain SOB (shortness of breath) Tendonitis of shoulder, right Tubular adenoma of colon URI (upper respiratory infection) Surgical History H/O hernia repair H/O neck surgery History of cardioversion (11/23/18) History of left heart catheterization (03/15/13) History of radiofrequency ablation procedure for cardiac arrhythmia (07/27/15) Hx of cholecystectomy Hx of fusion of cervical spine ovarian surgery Family History Sister AfibFather CAD (coronary artery disease)Brother CVA (cerebral vascular accident)Mother No problems noted. Sister No problems noted. Brother Wilsons diseaseBrother Wilsons disease Social History Smoking Status: Former smoker alcohol intake: never substance use type: does not use caffeine: Yes Type: coffee Number of servings: 1 what type of physical activity do you participate in: walking frequency: daily seatbelt use: always do you feel safe at home: Yes ROS Const Const: Negative for fatigue, weakness, body ache, fever(s) or chills ENT ENT: Negative for dizziness or Nosebleed/epistaxis Cardio Chest Pain: No Palpitations: Yes Edema: None Muscle aches with walking: None Resp Respiratory: Negative for SOB with activity, SOB at rest, SOB orthopnea\SOB lying down, Cough or paroxysmal nocturnal dyspnea GI GI: Negative nausea, vomiting blood/hematemesis, bright, red blood in stools or black,tarry stools : Negative for hematuria or frequent nighttime urination/ nocturia Musc Musc: Negative for muscle aches/ myalgia Skin Skin: Negative non-healing lesions or rash Neuro Neuro: Negative for dizziness, lightheadedness, near syncope, syncope, orthostatic symptoms or weakness Endo Endo: Negative for fatigue Allergy Allergy/Immunology: Negative for rash Cardiology Exam Const Appearance: cooperative, healthy appearing, comfortable and no acute distress Nutritional Appearance: well nourished and overweight Orientation: alert, awake and oriented x3 Head Head: normal to inspection Ears: hearing grossly normal bilaterally Nose: external nose normal Face and Sinus: face symmetric Mouth: moist mucous membranes Eyes General: appearance normal, both eyes and all related structures Eyelids: eyelids normal EOM: EOM intact bilaterally Neck Neck: normal visual inspection and no JVD Carotids: normal carotid upstroke Chest Chest inspection: normal inspection of the chest, symmetric chest movement and normal respiratory effort; Negative cough Auscultation: Bilateral: Clear to Auscultation Cardio Rate: Normal Rhythm: irregular rhythm Heart sounds: S1 normal and S2 normal; Negative rub, gallop or murmur GI GI: normal to inspection Neuro General: patient alert, patient awake, patient oriented x3 and CN's II-XI intactbilaterally Skin Skin: no rashes or lesions noted Extremities Pulses: Normal: Right Posterior Tibial Pulse, Left Posterior Tibial Pulse, RightRadial Pulse and Left Radial Pulse Lower Extremity Edema: None: Bilateral Psych Psychological: normal affect Supplemental Info Supplemental Information Echocardiogram 12/31/22 Interpretation Summary: The left ventricular ejection fraction is 60 %. Diastolic function is indeterminate. The left atrium is moderately enlarged. Aortic sclerosis, no stenosis. Mild (1+) mitral valve insufficiency. The study was technically difficult. Echocardiogram 08/06/22 Interpretation Summary: Normal LV size. Left ventricular systolic function is normal. The estimated ejection fraction is 55 %. Stage 3 diastolic dysfunction. Pulmonary artery systolic pressure is 46 mmHg. Mild focal aortic valve calcification. Contrast injection was performed. Stress Test 04/08/22 Conclusion: Normal pharmacologic myocardial perfusion stress test. Preserved ejection fraction. Transesophageal echocardiogram from 11/02/18 Interpretation Summary: Normal LV size. The estimated ejection fraction is 50 %. No regional wall motion abnormalities noted. The left atrium is moderately enlarged. No thrombus is detected in the left atrial appendage. Mild-Moderate (1-2+) eccentric mitral valve insufficiency. Cardiac catheterization 03/15/13 Normal left main coronary artery Left anterior descending artery which is normal Left circumflex artery with no significant disease Dominant right coronary artery with no significant disease Preserved ejection fraction Carotid Duplex Ultrasound 09/29/18 Interpretation Summary: Minimal smooth plague right internal carotid with <50% stenosis. <50% stenosis right external carotid Intimal thickening left internal carotid with <50% stenosis. <50% stenosis left external carotid Patent and antegrade vertebrals bilaterally Assessment and Plan Assessment and Plan (1) Paroxysmal atrial fibrillation: Status: Chronic Comment: DCCV 2012, 2014, 11/02/18, 11/23/18, unsuccessful radiofrequency ablation in July2015; Plan: Her most recent Holter monitor showed atrial fibrillation. She will proceed with cardioversion. She is currently on Eliquis for CVA protection, metoprolol for rate control, and flecainide for rate and rhythm control. As noted above, she has not tolerated amiodarone previously on account of dyspnea. We may consider retrying it. (2) Chronic diastolic (congestive) heart failure: Status: Chronic Plan: Nonischemic cardiomyopathy with preserved EF: Echocardiogram 12/31/2022-EF: 60% Twelve-lead EC02/04/2023-Sinus bradycardia at a rate of 58 bpm with QRS 110 and a rate variation. [place] Heart Association Functional Class: I ACC/AHA stage: C Guideline Directed Medical Therapy: Metoprolol succinate 12.5 mg p.o. twice daily Valsartan 20 mg p.o. daily Jardiance 10 mg p.o. daily We will continue to focus on adequate rate and rhythm control. As she does havea preserved ejection fraction. We will follow response and continue to adjust medications as needed. She appears to be euvolemic and will continue Lasix on aas needed basis. Other future options may include spironolactone to assist withvolume control. 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 This was seen on her most recent MRA. She will continue to follow with Dr. Persaud-Vascular for it.We will continue to monitor heart rate and blood pressure. (4) Fatigue: Status: Resolved Plan: At this time, we will continue to monitor. We will monitor heart rate closely to discern if this is related to bradycardia or rhythm. 06/26/23 1640 <Electronically signed by Maxim Ibarra MD> Cosigner Signature (if applicable): 06/24/23 1444 <Electronically signed by Nagi HAGAN> CC: DANYA Freeman; Dr. Minerva Shaver MD; Dr. Maxim Ibarra MD~ Signed [facility] Work Phone: [phone]) 541-264001-19-2024 Telephone encounter Note* Telephone Encounter - Sonia Diane - 05/30/2023 10:50 AM EST 08/18/2023 EGD HART [facility]01-19-2024 Miscellaneous Notes* Telephone Encounter - Sonia Diane - 05/30/2023 10:50 AM EST 08/18/2023 EGD HART documented [facility] Miscellaneous Notes* Telephone Encounter - Felicitas Glover - 04/11/2023 8:24 AM EST Patient has been identified by name and [...] applicable Please advise. Thank you. Felicitas Glover. * Telephone Encounter - Lorraine Zarco - 04/10/2023 2:52 PM EST Patient has been identified by name and date of : Yes Requested Prescriptions Pending Prescriptions Disp Refills flecainide (TAMBOCOR) 100 mg tablet 180 tablet 2 Sig: Take 1 tablet by mouth two times a day. RX INSTRUCTIONS: Patient aware RX will be sent to pharmacy. No need to notify patient. Lorraine Randle documented in this encounterK[facility]11-20-2023 History of Present illness Narrative* Dianna Ballard APRN.ANITHA - 03/31/2023 12:01 PM EST CC: Patient presents with: Follow Up HPI Elizabeth Persaud is a 77 year old female who [...] surgery with implants- Dr Jacob Aguilar at [facility] PAST SURGICAL HISTORY OF 07/27/2015 cryo ablation, cardiac RPR UMBILICAL HRNA 5 YRS/> REDUCIBLE 07/17/2010 Hernia repair, umbilical >5yr [facility] Dr Manuel Hoover [facility] COSMETIC SURGERY [...] Take 0.5 tablets by mouth twice daily. pmnayllozfy-buloormkc-fihncxhb (TRELEGY ELLIPTA) 100-62.5-25 mcg inhalation powder Inhale 1 Puff asinstructed once daily. Ipratropium (ATROVENT) 17 mcg/actuation inhaler [...] 1,000 mg by mouth five times daily. [id number] ORAL Take by mouth. lidocaine (LIDODERM) 5 % Apply 1 Patch as directed every 24 hours. Apply patch for 12 hours, remove, and then wait 12 more hours before applying a new patch. Location: mid back (Patient not taking: Reported on 03/31/2023) FAMILY HISTORY Problem Relation Age of Onset Hypertension Mother Stroke Mother Coronary Artery Disease Father other (wilsons disease) Brother other (VINCE'S DISEASE) Brother Liver dse, cirrhosis Social History [...] symptoms occur. Patient agreeable to treatment plan. Dianna Ballard APRN.CNP documented in this encounterK[facility]11-13-2023 Miscellaneous Notes* Telephone Encounter - Toshia Jaquez LPN - 03/24/2023 2:45 PM EST Patient has been identified by name and [...] you. Toshia Jaquez LPN. documented in this encounterK[facility]11-13-2023 History of Present illness Narrative* Laith Montes MD - 03/24/2023 6:09 AM EST [employer] 02/26/2023: Recording time 5 hours 54 min Saturation < 88% 94 min Lowest saturation 68% Confirms need for nocturnal oxygen documented in this encounterKettering [facility]11-06-2023 Instructions* Patient Instructions* Lupe Ballard APRN.BOILERMAKER SHIP - 03/17/2023 2:30 PM EST Fact Sheet for Patients And Caregivers LAGEVRIO (molnupiravir) capsules For Coronavirus Disease 2019 (COVID-19) What is the most important information I should know about LAGEVRIO? LAGEVRIO may cause serious side effects, including: LAGEVRIO may cause harm to your unborn baby. It is not known if LAGEVRIO will harm your baby if youtake LAGEVRIO during . LAGEVRIO is not recommended for use in . LAGEVRIO has not been studied in . LAGEVRIO was studied in animals only. When LAGEVRIO was given to animals, LAGEVRIO caused harm to their unborn babies. You and your healthcare provider may decide that you should take LAGEVRIO during if thereare no other COVID-19 treatment options approved or [...] method of control (contraception) consistently and correctly duringtreatment with LAGEVRIO and for 4 days after the last dose of LAGEVRIO. Talk to your healthcare provider about reliable control methods. Before starting treatment with LAGEVRIO your healthcare provider may do a test to see if you are before starting treatment with LAGEVRIO. Tell your healthcare provider right away if you become or think you may be duringtreatment with LAGEVRIO. Registry: There is a registry for individuals who take LAGEVRIO during . The purpose of this program is to collect information about the health of you and your baby. If you are or become during treatment with LAGEVRIO, you are encouraged to reportyour use of LAGEVRIO during to this registry at https://[email or web address] or . For individuals who are sexually active with partners who are able to become : It is not known if LAGEVRIO can affect sperm. While the risk is regarded as low, animal studies to fully assess the potential for LAGEVRIO to affect the babies of males treated with LAGEVRIO have notbeen completed. A reliable method of control (contraception) [...] COVID-19 treatment options approved or authorized by theFDA are not accessible or clinically appropriate. Read this Fact Sheet for information about LAGEVRIO. Talk to your healthcare provider about your options if you have any questions. It is your choice to take LAGEVRIO. What is COVID-19? COVID-19 is caused by a virus called a coronavirus. You can get COVID-19 through close contact withanother person who has the virus. COVID-19 illnesses have ranged from very dtbp-yy-zyqnoo, including illness resulting in . While information so far suggests that most COVID-19 illness is mild, serious illness can happen and maycause some of your other medical conditions to [...] use of LAGEVRIO for the treatment of mild- tomoderate COVID-19 in adults under an EUA. For [...] serious illnesses Take any medicines including prescription, oxpd-qzj-kobdcdt medicines, vitamins, and herbal products. How do [...] NG or OG that is size 12 Yoruba (FR) or larger. If you miss a dose of LAGEVRIO: If it has been less than 10 hours since the missed dose, take it as soon as you remember. If it has been more than 10 hours since the missed dose, skip the missed dose and take your dose atthe next scheduled time. Do not double the [...] tell you what size catheter tip syringe youwill need to take or give a dose of LAGEVRIO. Place the needed supplies on a clean work surface. Follow your healthcare provider s instructions on how to flush the NG or OG feeding tube. Flush theNG or OG feeding tube with 5 mL [...] contents and water well for 3 minutes. Thecapsule contents may not dissolve completely. Remove the [...] any capsule contents left in the container orcatheter tip syringe. Use the same catheter tip syringe to flush the NG or OG feeding tube 2 times with 5 mL of water (10mL total). Rinse the container, lid and catheter tip syringe well with clean water after use. Place on a cleanpaper towel until next use. What are the [...] to treat people with COVID-19. Go to https://www.fda.gov/joguqxcgn-zhtwtydiiany-fkl-response/iok-wgzxuyssgfboukx-ppk- policy-framework/mnwqbzuyp-gcn-awyzsvbcdivjh for more information. It is your choice [...] to FDA MedWatch at www.fda.gov/medwatch or call 3-158-PYO-3958 (1705.605.9877). How should I store LAGEVRIO? Store LAGEVRIO capsules at room temperature between 68 F to 77 F (20 C to 25 C). Keep LAGEVRIO and all medicines out of the reach of children. How can I learn more about COVID-19? Ask your healthcare provider. Visit www.cdc.gov/COVID19 Contact your local or state public health department. Call [employer] at (toll free in the [place] Visit www.Notch What Is an Emergency Use Authorization (EUA)? The [facility] FDA has made LAGEVRIO available under an emergency access mechanism called an Emergency Use Authorization (EUA) The EUA is supported by a Ready To Wear Department Manager of Health and Human Service ([facility])declaration that circumstances exist to justify emergency use of drugs and biological products during the COVID-19 pandemic. LAGEVRIO for the treatment of adults with a current diagnosis of vkkv-vj-glcfakvc COVID-19 who are at high risk for progression to severe COVID- 19, including hospitalization or , and for whom [...] evidence available including data from adequate and well-controlledclinical trials, if available, it is reasonable to [...] be used under the EUA). [place]. for: [employer] [address] For patent information: www.eOriginal.CamGSM/research/patent Copyright [employer] [place], [place], [facility] and its affiliates. All rights reserved. [id number] Revised: June 2022 documented in this encounterK[facility]11-06-2023 History of Present illness Narrative* Lupe Ballard APRN.CNP - 03/17/2023 2:20 PM EST This Team Access Model visit is a phone encounter. It required patient-provider interaction for themedical decision making as documented below. I have communicated my name and active licensure. The patient's identity and physical location wereverified at the time of this visit. Either the patient or their legal business development representative has been informed of the risks and benefits of -- and alternatives to -- treatment through a remote evaluation andconsents to proceed with the evaluation remotely. Patient Location: [place] CC: Patient presents with: Covid19 Concern HPI: Elizabeth Persaud is a 77 year old female who is contacted today for a phone visit. This is an established patient of Dr. Minerva Shaver MD. COVID positive test on 03/17/23, [...] surgery with implants- Dr Jacob Aguilar at [facility] PAST SURGICAL HISTORY OF 07/27/2015 cryo ablation, cardiac RPR UMBILICAL HRNA 5 YRS/> REDUCIBLE 07/17/2010 Hernia repair, umbilical >5yr [facility] Dr Manuel Hoover [facility] COSMETIC SURGERY [...] Take 0.5 tablets by mouth twice daily. wgkiohlxjcf-hsujolmig-kgdlmzmv (TRELEGY ELLIPTA) 100-62.5-25 mcg inhalation powder Inhale 1 Puff asinstructed once daily. Ipratropium (ATROVENT) 17 mcg/actuation inhaler [...] 1,000 mg by mouth five times daily. [id number] ORAL Take by mouth. FAMILY HISTORY Problem Relation Age of Onset Hypertension Mother Stroke Mother Coronary Artery Disease Father other (wilsons disease) Brother other (VINCE'S DISEASE) Brother Liver dse, cirrhosis Social History [...] all medication errors and serious adverse events potentiallyrelated to nirmatrelvir/ritonavir treatment within 7 calendar days from the onset of the event and that events up to 28 days after completion of therapy need to be reported. The discussion included alternatives to receiving nirmatrelvir/ritonavir, including clinical trials, and potential the risks and benefits of those alternatives. The patient was provided electronically with the Fact Sheet forPatients, Parents and Caregivers. The patient was also instructed that in addition to the treatment with nirmatrelvir/ritonavir, he/she should continue to self-isolate and use infection control measures (e.g., wear mask, isolate, social distance, avoid sharing personal items, clean and disinfect high touch surfaces, and frequent h andwashing) according to CDC guidelines. The patient stated [...] care. Lupe Ballard APRN.CNP documented in this encounterKet[facility]10-24-2023 Miscellaneous Notes* Telephone Encounter - Davin Rudd PA-C - 03/04/2023 4:33 PM EDT Rx sent again. Davin Rudd PA-C * Telephone Encounter - Leif Orlando LPN - 03/04/2023 12:30 PM EDT John from [facility] Pharm calling for clarification on pt's diclofenac, EC 75 mg. States order is written for Can use every other day. States he needs to know how many tablets and how many times per pay pt can take this. Please advise. Can send a new rx or call pharm back. Leif Orlando LPN documented in this encounterKettering [facility]10-24-2023 Miscellaneous Notes* Telephone Encounter - Ruby Johns OCCA - 03/04/2023 1:24 PM EDT Patient was seen in office 03/04 by Lonny Rudd and below was discussed. Nothing further at this time. MARJ Yusuf * Telephone Encounter - Dianna Ballard APRN.CNP - 03/03/2023 12:20 PM EDT Unfortunately she needs an appointment. She is seeing Davin tomorrow. Did she already go back to work? Dianna Ballard APRN.CNP * Telephone Encounter - Ruby Johns OCCA - 02/28/2023 9:42 AM EDT Patient last seen by Kaci Ballard on 02/10/23. Routing message there. MARJ Yusuf * Telephone Encounter - Adriana Lopes - 02/28/2023 9:18 AM EDT Called patient to reschedule her appointment that she had to day with Dianan Ballard and patient stated that she needs [...] on Friday. Please call patient back at [phone] to advice what the patient should do. Thank you Adriana Lopes documented in this encounterKettering [facility]10-24-2023 History of Present illness Narrative* Davin Rudd PA-C - 03/04/2023 12:20 PM EDT CC: Patient presents with: Follow Up: return to work tomorrow and needs handicap placard HPI Elizabeth Persaud is a 77 year old female who presents today for follow-up, requesting return to work for tomorrow. Also requesting handicap placard at this time. Last visit was on 02/10/2023 with Dianna Ballard CNP. At that time, patient's COPD and associated shortness of breath was much improved after starting Trelegy Ellipta, and rarely needed to use her oxygen (advised to use if pulse ox less than 90%). States that she is feeling much improved at this time. Very rarely using oxygen, sometimes at night. Had nocturnal oxygen testing performed through Dr. Montes (pul, [facility]) Had CVA in 08/01, and [...] surgery with implants- Dr Jacob Aguilar at [facility] PAST SURGICAL HISTORY OF 07/27/2015 cryo ablation, cardiac RPR UMBILICAL HRNA 5 YRS/> REDUCIBLE 07/17/2010 Hernia repair, umbilical >5yr [facility] Dr Manuel Hoover SHX COSMETIC SURGERY SKIN BIOPSY HX ALLERGIES Cardizem [Diltiazem Hcl], Codeine, Entex [Phenylephrine-Guaifenesin], Etodolac, Meloxicam, Naproxen, Surgical Tape Adhesives [Other], Trazodone, and Zantac [Ranitidine Hcl] MEDICATIONS JARDIANCE 10 mg tablet Take 10 mg by mouth once daily. metoprolol succinate ER (TOPROL XL) 25 mg 24 hr tablet Take 0.5 tablets by mouth twice daily. apgoqyuewcj-ngqegvqgg-tbbmromz (TRELEGY ELLIPTA) 100-62.5-25 mcg inhalation powder Inhale 1 Puff asinstructed once daily. Ipratropium (ATROVENT) 17 mcg/actuation inhaler [...] use every other day for pain/inflammation. Take withfood. flecainide (TAMBOCOR) 100 mg tablet Take 1 [...] 1,000 mg by mouth five times daily. ULISRZQ-OCEDSMSMR-OAAD ORAL Take by mouth. lidocaine (LIDODERM) 5 [...] Disease Father other (wilsons disease) Brother other (VINCE'S DISEASE) Brother Liver dse, cirrhosis Social History [...] BP Cuff Size: Regular Adult) Pulse 61 Temp36.6 C (97.8 F) Resp 12 Ht 157.5 cm (5' 2) Wt 64 kg (141 lb) SpO2 96% [...] Trelegy Ellipta. Follow-up as planned with Dr. Montes to discuss nocturnal oxygen testing. Note generated [...] occur. Patient agreeable to treatment plan. Davin Rudd PA-C documented in this encounterK[facility]-23-2023 Miscellaneous Notes* Telephone Encounter - Tamica Dolan LPN - 03/03/2023 1:17 PM EDT Please see attach overnight pulse ox results and advise. Scan on 03/03/2023 9:18 AM by Provider, External, MARIANNE: Miscellaneous Procedures Tamica Dolan LPN documented in this encounterKet[facility]10-02-2023 History of Present illness Narrative* Dianna Ballard APRN.[employer] - 02/10/2023 1:40 PM EDT CC: Patient presents with: Recheck: Follow up HPI Elizabeth Persaud is a 77 year old female who presents today for follow up on multiple concerns. Over the past year has had multiple hospitalizations for recurrent pneumonia, CHF, A-fib, and CVA. 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 Much improvement in shortness of breath after starting trilogy and rarely needs to use her oxygen. Will put on if pulse ox is less than 90%. Has been slowly trying to increase activity at home. Is still on dificid as she was on doxycycline and recently had c-diff. Denies any nausea, change inchronic upper abdominal pain, cramping, or diarrhea. Saw cardiology and placed on jardiance to help her kidney function and help decrease fluid overload. Patient concerned with having a history of hypoglycemia and on this medicine. Has been on this fora week without any symptoms of low blood [...] surgery with implants- Dr Jacob Aguilar at [facility] PAST SURGICAL HISTORY OF 07/27/2015 cryo ablation, cardiac RPR UMBILICAL HRNA 5 YRS/> REDUCIBLE 07/17/2010 Hernia repair, umbilical >5yr [facility] Dr Manuel Hoover SHX COSMETIC SURGERY [...] tablet Take two daily for 5 days. ejlkxrnvvow-gumdzqyyo-rrnignar (TRELEGY ELLIPTA) 100-62.5-25 mcg inhalation powder Inhale 1 Puff asinstructed once daily. Ipratropium (ATROVENT) 17 mcg/actuation inhaler [...] use every other day for pain/inflammation. Take withfood. flecainide (TAMBOCOR) 100 mg tablet Take 1 [...] daily. (Patient not taking: No sig reported) [id number]-GGTWYAZMU-GASN ORAL Take by mouth. FAMILY HISTORY Problem Relation Age of Onset Hypertension Mother Stroke Mother Coronary Artery Disease Father other (wilsons disease) Brother other (VINCE'S DISEASE) Brother Liver dse, cirrhosis Social History [...] symptoms occur. Patient agreeable to treatment plan. Dianna Ballard APRN.CNP documented in this encounterKet[facility]09-19-2023 Instructions* Patient Instructions* Юлия Oden MD - 01/28/2023 8:09 PM EDT Fill prescription for C diff if develop symptoms as before. Can get tested if needed documented in this encounterKettering Health [facility]09-19-2023 History of Present illness Narrative* Юлия Oden MD - 01/28/2023 7:33 PM EDT This note was created using [employer]. Subjective Elizabeth Persaud is a 77 year old female. Patient presents with: Follow Up SUBJECTIVE: Elizabeth Persaud is a 77 year old year old lady here today for follow up appointment for review of medical conditions. Seeing for close follow up after seeing Dianna. Reviewed that started feeling better since started treatment per Dr. Montes. Noted that heart rate got too low [...] had ablation therapy for a fib through [place] but states that did not work well. [...] tablet Take two daily for 5 days. hzeemfxacnk-wizfaoiie-tctxwqlw (TRELEGY ELLIPTA) 100-62.5-25 mcg inhalation powder Inhale 1 Puff asinstructed once daily. Ipratropium (ATROVENT) 17 mcg/actuation inhaler [...] use every other day for pain/inflammation. Take withfood. flecainide (TAMBOCOR) 100 mg tablet Take 1 [...] daily. (Patient not taking: No sig reported) WCWQWAX-XCIVEQWQF-HPEW ORAL Take by mouth. No current facility-administered medications for this visit. Review of Systems Objective BP 130/78 Pulse (!) 58 Resp 16 Ht 157.5 cm (5' 2) Wt 62.1 kg (137 lb) SpO2 94% [...] as of this encounter: 157.5 cm (5' 2). Weight as of this encounter: 62.1 kg [...] at times stil low and sometimes. Nagi Pete will see herthis 2. Chronic obstructive pulmonary disease with acute exacerbation (HCC) J44.[address] Laith Montes; doing better 3. History of Clostridium difficile colitis Z86.19 Antibiotic given for just in case 4. Chronic congestive heart failure, unspecified heart failure type (HCC) I50.9 compensated; needs new title curator in [facility] system Above issues addressed with [...] the date of the service which included rpri-db-plib patient care, completing clinical documentation, obtaining and/or reviewing separately obtained history, performing a medically appropriate examination, counseling and educating the patient/family/caregiver, and ordering medications, tests, or procedures. Юлия Oden MD documented in this encounterKet[facility]09-18-2023 History of Present illness Narrative* Laith Montes MD - 01/27/2023 12:45 PM EDT Images from the original note were not included. . [facility] [place] Note Patient name: Elizabeth Persaud PCP: Minerva Shaver MD Referring Physician: Dianna Ballard CNP Consultation requested by Dianna Ballard CNP for an opinion regarding COPD. My final recommendations will be communicated back to the requesting physician by way of shared Medical record or letter to requesting physician via US mail. CC: COPD HPI: Elizabeth Persaud 77 year old female former 70 pack year smoker, quitting in 2005 with PMH significant for HTN, GERD, scoliosis, diastolic heart failure, AF, being referred for evaluation of COPD. Recently admitted to [facility] with hypoxemic respiratory failure due to [...] BNP <450 pg/mL 516 High Resulting Agency [facility] Imaging / Diagnostic Studies: DATE OF EXAM: [...] acute radiographic abnormality. Reviewed chest CT from [facility] 04/27/2022 shows moderate upper lobe emphysema [...] tablet Take two daily for 5 days. ynrnaakgagy-ctgaquxin-qaiwmhjz (TRELEGY ELLIPTA) 100-62.5-25 mcg inhalation powder Inhale 1 Puff asinstructed once daily. Ipratropium (ATROVENT) 17 mcg/actuation inhaler [...] use every other day for pain/inflammation. Take withfood. flecainide (TAMBOCOR) 100 mg tablet Take 1 [...] daily. (Patient not taking: No sig reported) XWEEPDS-GITNXXZYT-KHJF ORAL Take by mouth. Social History Tobacco [...] Disease Father other (wilsons disease) Brother other (VINCE'S DISEASE) Brother Liver dse, cirrhosis PAST SURGICAL [...] surgery with implants- Dr Jacob Aguilar at [facility] PAST SURGICAL HISTORY OF 07/27/2015 cryo ablation, cardiac RPR UMBILICAL HRNA 5 YRS/> REDUCIBLE 07/17/2010 Hernia repair, umbilical >5yr [facility] Dr Manuel Hoover SHX COSMETIC SURGERY [...] her dyspnea on exertion -Anticoagulated -Rate controlled Laith Montes MD [facility] [place] documented in this encounterK[facility]09-15-2023 Miscellaneous Notes* Telephone Encounter - Stephanie Randolph Ma - 01/24/2023 2:22 PM EDT Pt notified and voiced understanding. Stephanie Randolph Ma * Telephone Encounter - Dianna Ballard APRN.CNP - 01/24/2023 2:12 PM EDT Take 1/2 tablet of the 25mg of [...] improvement or worsening of symptoms. Thank you Dianna Ballard APRN.CNP * Telephone Encounter - Stephanie Randolph Ma - 01/24/2023 1:54 PM EDT Pt notified. She has the 25 mg pills at home, is taking 25 mg 1 pill twice daily. Stephanie Randolph Ma * Telephone Encounter - Dianna Ballard APRN.CNP - 01/24/2023 1:43 PM EDT She needs to call her cardiology office. Take an extra dose of lasix and potassium today and tomorrow. If no improvement or any worsening symptoms she needs to go to ER. Is she taking only 1/2 of her 50mg of metoprolol twice a day? If so, does she have any 25mg tablets? Thank you Dianna Ballard APRN.CNP * Telephone Encounter - Stephanie Randolph Ma - 01/24/2023 1:06 PM EDT Spoke with pt, she states she is not feeling any better but no worse. Still SOB, using 2 L oxygen and that is keeping her at 93%. She states her heart rate running 48-55. Stephanie Randolph Ma * Telephone Encounter - Dianna Ballard APRN.CNP - 01/24/2023 12:50 PM EDT Please let patient know there is no [...] the lower dose of metoprolol? Thank you Dianna Ballard APRN.CNP * Telephone Encounter - Stephanie Randolph Ma - 01/24/2023 8:55 AM EDT Pt had blood work done at [facility] View External Labs - Chemistry [ID [id number]] Stephanie Randolph Ma documented in this encounterKet[facility]09-14-2023 Instructions* Patient Instructions* Dianna Ballard APRN.CNP - 01/23/2023 3:00 PM EDT Decrease Metoprolol to 25mg Twice daily until you see cardiology. Flonase 2 sprays each nostril before bed and rinse out mouth after. documented in this encounterKettering [facility]09-14-2023 History of Present illness Narrative* Dianna Ballard APRN.CNP - 01/23/2023 2:19 PM EDT CC: Patient presents with: Hospital F/U HPI Elizabeth Persaud is a 77 year old female who presents today for 2 week follow up. Patient has very concerning history with multiple hospitalizations over the past year for new onset A-fib, CHF, COPD, recurrent pneumonia, stroke, and recent C- Diff infection. Was seen 2 weeks ago in A-fib with junctional rhythm and nonspecific intraventricular block. Patient feeling well at last appointment had cardiology appointment the following week for all the SOB, wheezing, and her A- fib but was canceled for the 3rd time and did not follow up in this office as requested. Is now scheduled with them again nextweek. Does report that they increased he metoprolol to 50mg BID. With recurrent respiratory distress, home O2 use, recurrent pneumonia, she was to see pulmonology, but unable to get into [place] pulmonology until April. Presents today stating she feels terrible again. Started with productive cough day after seeing me last time and wheezing that wakes her up at night. Also sinus pressure with tenderness, fatigue, andswollen tender lymph nodes under her jaw. Still with shortness of breath requiring Oxygen @ 2L withexertion and using more often then at previous [...] in chronic vertigo. REVIEW OF SYSTEMS See [facility] PAST MEDICAL HISTORY Diagnosis Date Anxiety Arthritis [...] surgery with implants- Dr Jacob Aguilar at [facility] PAST SURGICAL HISTORY OF 07/27/2015 cryo ablation, cardiac RPR UMBILICAL HRNA 5 YRS/> REDUCIBLE 07/17/2010 Hernia repair, umbilical >5yr [facility] Dr Manuel Hoover SHX COSMETIC SURGERY [...] use every other day for pain/inflammation. Take withfood. flecainide (TAMBOCOR) 100 mg tablet Take 1 [...] (ONE-A-DAY 50 PLUS ORAL) Take by mouth. UDORWRR-MLXHMPTYA-RPCV ORAL Take by mouth. CALCIUM CARBONATE/VITAMIN D3 (VITAMIN D-3 ORAL) Take 1,000 mg by mouth five times daily. (Patient not taking: No sig reported) FAMILY HISTORY Problem Relation Age of Onset Hypertension Mother Stroke Mother Coronary Artery Disease Father other (wilsons disease) Brother other (VINCE'S DISEASE) Brother Liver dse, cirrhosis Social History [...] last year, trying to find a new title curator that she can see regularly - ECG [...] on eliquis but with recent hospitalization, inability michael active and worsening of symptoms will check d- dimer for possible PE - CBC + DIFF [...] trying to get patient in with [facility] asset protection detective - CONSULT TO CARDIOLOGY 8. History of recent hospitalization - ICD9: V13.9, ICD10: Z92.89 - D-DIMER 9. Acute pain of right shoulder - ICD9: 719.41, ICD10: M25.511 - scapula tender but no deformities noted - XR SHOULDER [id number] AP/TRUE AP RIGHT 10. Fall, initial encounter - ICD9: E888.9, ICD10: W19.XXXA - XR SHOULDER [id number] AP/TRUE AP RIGHT Prescription instructions reviewed with patient as applicable. Potential red flag symptoms discussed with the patient. Reviewed appropriate action plan to take if red flag symptoms occur. Patient agreeable to treatment plan. Dianna Ballard APRN.CNP documented in this encounterKet[facility]09-01-2023 History of Present illness Narrative* Dianna Ballard APRN.CNP - 01/10/2023 2:56 PM EDT CC: Patient presents with: Follow Up: 1 week follow up- in a fib, dizziness, leg swelling, SOB, fatigue HPI Elizabeth Persaud is a 77 year old female who [...] again this past Friday because of feeling palpitationsalong with some swelling to her legs at the same time. Went to [facility] for her scheduled visit but [...] surgery with implants- Dr Jacob Aguilar at [facility] PAST SURGICAL HISTORY OF 07/27/2015 cryo ablation, cardiac RPR UMBILICAL HRNA 5 YRS/> REDUCIBLE 07/17/2010 Hernia repair, umbilical >[address] [facility] [address] Manuel Hoover SHX COSMETIC SURGERY SKIN [...] use every other day for pain/inflammation. Take withfood. flecainide (TAMBOCOR) 100 mg tablet Take 1 [...] daily. (Patient not taking: No sig reported) [id number]-QORFIFXOA-LKXC ORAL Take by mouth. FAMILY HISTORY Problem Relation Age of Onset Hypertension Mother Stroke Mother Coronary Artery Disease Father other (wilsons disease) Brother other (VINCE'S DISEASE) Brother Liver dse, cirrhosis Social History [...] 102 Resp 14 Ht 157.5 cm (5' 2) Wt 63 kg (139 lb) SpO2 95% [...] by cardiology - patient has appointment with title curator next Friday - Follow up in 2 [...] symptoms occur. Patient agreeable to treatment plan. Dianna Ballard APRN.CNP documented in this encounterKettering [facility]08-25-2023 History of Present illness Narrative* Dianna Ballard APRN.CNP - 01/03/2023 2:37 PM EDT CC: Patient presents with: Hospital F/U: SOB, hospital follow up-pneumonia, CHF HPI Elizabeth Persaud is a very complex 77 year old [...] GFR was 57 and Creatinine 1.03 Facility: [facility] Date of visit: Reason for visit: [...] sitting for a few minutes O2 sat gotto 92% Diarrhea has improved with treatment for C-Diff. Still with some shortness of breath but much improved since beginning of hospital stay, nonproductive cough, had a fever of 101.5 last night that improved with tylenol, generalized weakness, and fatigue. Denies edema outside of small amount to ankles, wheezing, vomiting, or abdominal pain. No change inchronic nausea. REVIEW OF SYSTEMS See HPI PAST [...] surgery with implants- Dr Jacob Aguilar at [facility] PAST SURGICAL HISTORY OF 07/27/2015 cryo ablation, cardiac RPR UMBILICAL HRNA 5 YRS/> REDUCIBLE 07/17/2010 Hernia repair, umbilical >5yr [facility] Dr Manuel Hoover SHX COSMETIC SURGERY [...] use every other day for pain/inflammation. Take withfood. flecainide (TAMBOCOR) 100 mg tablet Take 1 [...] daily. (Patient not taking: No sig reported) EUGSVAC-HOKIDGIFU-EHIM ORAL Take by mouth. FAMILY HISTORY Problem Relation Age of Onset Hypertension Mother Stroke Mother Coronary Artery Disease Father other (wilsons disease) Brother other (VINCE'S DISEASE) Brother Liver dse, cirrhosis Social History [...] BP Cuff Size: Regular Adult) Pulse 69 Resp18 Ht 157.5 cm (5' 2) Wt 62.1 kg (137 lb) SpO2 92% [...] MAMMOGRAM Discontinued DATA REVIEWED: Outside chart from [facility] reviewed. Also reviewed recent lab work for [...] to easily walk with oxygen and take toappointments - patient states this will get delivered later today but will call for any concerns. Prescription instructions reviewed with patient as applicable. Potential red flag symptoms discussed with the patient. Reviewed appropriate action plan to take if red flag symptoms occur. Patient agreeable to treatment plan. Dianna Ballard APRN.CNP documented in this encounterKettering Health [facility]08-24-2023 Consult note Author Davin Taylor [facility] January 02, 2023 11:58am Note Date/Time January 02, 2023 11 :58am [facility] Medical Records Department [address] [place] [address] Counseling Note - Pharmacy 01/02/23 1148 MR#: [id number] Acct: [id number] Name: ELIZABETH PERSAUD Rep #:[id number] : 1945 77 From: Davin Taylor PCP: Dr. Minerva Shaver MD Status:ADM I N Y Location: [place] [address] Pharmacy [facility] Pharmacy Service has performed discharge medication reconciliation and counseling for this patient. The patient was counseled on the following discharge medications and changes in medications for homegoing were reviewed. The Reason for Use, instructions for use, and potential side effects were reviewed for all new medications. The patient's questions regarding all of their medications were answered. The patient was able to verbally demonstrate an understanding of their dischargemedications. The patient's discharge medication list was reviewed for discrepancies and discrepancies were resolved. Patient counselled by Jadyn Varghese PharmD Candidate Medications at Discharge Home Medications multivitamin with folic acid 400 mcg tablet 1 tab PO DAILY supplement 03/15/13 melatonin 3 mg capsule 3 mg PO HS Check with primary doctor 01/19/21 calcium carbonate 500 mg calcium (1,250 mg) tablet 500 mg PO DAILY Check with primary doctor 06/25/21 apixaban 5 mg tablet 5 mg PO BID #180 tabs 06/14/22 cyclobenzaprine 10 mg tablet 10 mg PO HS PRN muscle spasm 07/25/22 famotidine 20 mg tablet 20 mg PO BID Check with primary doctor 07/25/22 potassium chloride 20 mEq tablet,extended release(part/cryst) 20 meq PO DAILY #180 tabs 07/25/22 flecainide 100 mg tablet 100 mg PO Q12H 08/27/22 furosemide 40 mg tablet 40 mg PO DAILY #90 tabs 09/26/22 metoprolol succinate 50 mg tablet,extended release 24 hr 50 mg PO BID #60 tabs 10/03/22 valsartan 40 mg tablet 20 mg PO DAILY 10/03/22 fidaxomicin 200 mg tablet (Dificid) 200 mg PO Q12H 12/31/22 sucralfate 100 mg/mL oral suspension 10 ml PO ACHS 12/31/22 azithromycin 500 mg tablet (Zithromax) 500 mg PO DAILY 3 days #3 tabs 01/02/23 cefdinir 300 mg capsule 300 mg PO BID #10 caps 01/02/23 01/02/23 1158 <Electronically signed by Davin Taylor > Date _ Davin Taylor Cosigner Signature (if applicable): Date CC: ~ Signed [facility] Work Phone: 1(275) 563-872008-24-2023 Discharge summary Author Josep Vasquez [facility] January 02, 2023 2:51pm Note Date/Time January 02, 2023 10 :10am [facility] Medical Records Department [address] [place] [id number] Discharge Summary 01/02/23 1007 MR#: [id number] Acct: [id number] Name: ELIZABETH PERSAUD Rep #:[id number] : 1945 77 From: Josep Vasquez MD PCP: Dr. Minerva Shaver MD Status:ADM I N Location: [place] [address] Providers Date of Admission: 12/31/22 Date of Discharge: 01/02/23 Primary Care Physician: Dr. Minerva Shaver MD Reason For Visit: ACUTE HYPOXIC RESPIRATORY FAILURE Diagnosis Discharge Diagnosis (1) Acute exacerbation of CHF (congestive heart failure): Status: Chronic Code(s): I50.9 - Heart failure, unspecified Qualifiers: Heart failure type: diastolic Qualified Code(s): I50.33 - Acute on chronic diastolic (congestive) heart failure (2) Acute respiratory failure with hypoxia: Status: Acute Code(s): J96.01 - Acute respiratory failure with hypoxia (3) GALINA (acute kidney injury): Status: Acute Code(s): N17.9 - Acute kidney failure, unspecified Plan Patient is a 77-year-old lady admitted with shortness of breath of 4 days duration. Patient was found to be significantly hypoxic saturating 80% on room air when she presented to the emergency department. An assessment of acute hypoxia secondary to congestive heart failure with preserved ejection fraction made admitted to a monitored bed for further management 1. Acute hypoxic respiratory failure ? Secondary to acute on chronic congestive heart failure with preserved ejectionfraction as well as suspected pneumonia. Admitted to a monitored bed managed with strict input and output Daily weight diuretics. Patient progress monitor with daily BMPs 2. Pneumonia - Suspected to be secondary to streptococcal pneumonia, Blood and sputum cultures sent. Patient placed on Rocephin and Zithromax and placed on oxygen titrated to keep Pulse Ox greater than 90 3. Acute kidney injury ? Baseline creatinine 0.7-0.95 creatinine on admission was 1.29 to expect improvement with diuresis ? 01/01/2023 patient kidney function did worsen resulting in discontinuation of Lasix patient losartan being held 4. Mild COPD exacerbation ? Managed with bronchodilator treatment as well as p.o. prednisone 5. C. difficile infection ? Patient is on Dificid?continue 6. Paroxysmal A-fib ? Rate controlled on flecainide as well as systemic anticoagulation with apixaban 7. Left-sided carotid artery aneurysm ? Patient is followed by Dr. Chaidez at [facility] as outpatient 8. Hypertension - Blood pressure controlled, home medications continued with dose adjustment as needed 9. Moses's esophagus ? Patient is on famotidine as well as Carafate did continue 10. Chronic pain syndrome ? Patient is some Flexeril as well as acetaminophen as needed 11. History of DVT ? Patient is on apixaban 12. DVT prophylaxis ? Patient on apixaban 13. Physical deconditioning - Requested for PT OT eval and social work program coordinator to assist with discharge planning Time spent in the patient's overall evaluation,decision-making process, review of diagnostic data, adjustment of management, discussion with other providers, nursing nursing and ancillary staff involved in patient's care documentation, 35minutes Medications at Discharge Home Medications multivitamin with folic acid 400 mcg tablet 1 tab PO DAILY supplement 03/15/13 melatonin 3 mg capsule 3 mg PO HS Check with primary doctor 01/19/21 calcium carbonate 500 mg calcium (1,250 mg) tablet 500 mg PO DAILY Check with primary doctor 06/25/21 apixaban 5 mg tablet 5 mg PO BID #180 tabs 06/14/22 cyclobenzaprine 10 mg tablet 10 mg PO HS PRN muscle spasm 07/25/22 famotidine 20 mg tablet 20 mg PO BID Check with primary doctor 07/25/22 potassium chloride 20 mEq tablet,extended release(part/cryst) 20 meq PO DAILY #180 tabs 07/25/22 flecainide 100 mg tablet 100 mg PO Q12H 08/27/22 furosemide 40 mg tablet 40 mg PO DAILY #90 tabs 09/26/22 metoprolol succinate 50 mg tablet,extended release 24 hr 50 mg PO BID #60 tabs 10/03/22 valsartan 40 mg tablet 20 mg PO DAILY 10/03/22 fidaxomicin 200 mg tablet (Dificid) 200 mg PO Q12H 12/31/22 sucralfate 100 mg/mL oral suspension 10 ml PO ACHS 12/31/22 azithromycin 500 mg tablet (Zithromax) 500 mg PO DAILY 3 days #3 tabs 01/02/23 cefdinir 300 mg capsule 300 mg PO BID #10 caps 01/02/23 Hospital Course Procedures 2-D Echocardiogram Summary of Care Provided Minutes Spent on Discharge: 35 Physical Exam Narrative GENERAL: cooperative HEENT: Atraumatic; normocephalic EYES; Anicteric, Normal Conjunctiva NECK; supple, normal thyroid, RESPIRATORY: Diminished to auscultation CARDIOVASCULAR: Regular S1 S2, GI: soft, normoactive bowel sounds, : No Renal angle tenderness; EXTREMITIES: No edema, no clubbing, MUSCULOSKELETAL: no muscle wasting NEURO: Awake; no lateralizing signs. SKIN: No Rash PSYCH; Flat affect Weight / BMI Weight Weight: 63.4 kg Body Mass Index (BMI) 26.4 ABG / Lab / Microbiology Data 01/02/23 05:30 01/02/23 05:30 Laboratory: Laboratory Results - last 24 hr 01/02/23 05:30: WBC 8.5, RBC 3.42 L, Hgb 10.1 L, Hct 32.6 L, MCV 95.3, MCH 29.5,MCHC 31.0 L, RDW Std Deviation 44.7 H, RDW Coeff of Elvie 12.8, Plt Count 245, MPV9.7, Immature Gran % (Auto) 0.400, Neut % (Auto) 64.1, Lymph % (Auto) 25.2, Willacy% (Auto) 8.0, Eos % (Auto) 2.1, Baso % (Auto) 0.2, Absolute Neuts (auto) 5.4, Absolute Lymphs (auto) 2.13, Nucleated RBC % 0, Sodium 140, Potassium 4.7, Chloride 105, Carbon Dioxide 33.0 H, Anion Gap 2 L, BUN 42 H, Creatinine 1.31 H,Estim Creat Clear Calc 28.00, Est GFR (MDRD) Af Amer 51 L, Est GFR (MDRD) Non-Af42 L, BUN/Creatinine Ratio 32.1 H, Glucose 108 H, Calcium 8.6 Microbiology: Microbiology 12/31/22 03:45 Mucosa - Nasopharyngeal Respiratory Panel (PCR) - Final 12/31/22 03:45 Nasal Secretion SARS-CoV-2 Antigen (Rapid) - Final 12/31/22 04:35 Urine, Clean Catch Legionella Antigen - Final 12/31/22 04:35 Urine, Clean Catch Streptococcus pneumoniae Antigen (M - Final D/C Instructions Discharge Diet: 8 Cup Fluid Restriction and 2000 mg Sodium Diet Discharge Activity: Return to Normal Activity Return to work on: 08/11/22 (Patient was admitted from 08/08-08/11/2022. She may return to work with no restrictions. ) Call your doctor if you observe: Shortness of breath, Increased palpitations (irregular heartbeat) and - (unilateral weakness) Meaningful Use Info Meaningful Use Diagnoses (Choose all that apply): CHF CHF LAYLA/ARB ordered at discharge?: Yes Documented LVEF (%): 60 Discharge Plan Admission Admit Date/Time: 12/31/22 02:29 Attending Provider: Josep Vasquez Primary Care Provider: Minerva Shaver Consulting Providers: Stephanie Scales Discharge Orders/Prescriptions Prescriptions: New cefdinir 300 mg capsule 300 mg PO BID Qty: 10 0RF azithromycin [Zithromax] 500 mg tablet 500 mg PO DAILY 3 Days Qty: 3 0RF Continued melatonin 3 mg capsule 3 mg PO HS calcium carbonate 500 mg calcium (1,250 mg) tablet 500 mg PO DAILY cyclobenzaprine 10 mg tablet 10 mg PO HS PRN (Reason: muscle spasm) famotidine 20 mg tablet 20 mg PO BID Patient Comments: Take 1 tablet by mouthUtwice daily. flecainide 100 mg tablet 100 mg PO Q12H valsartan 40 mg tablet 20 mg PO DAILY metoprolol succinate 50 mg tablet extended release 24 hr 50 mg PO BID Qty: 60 11RF multivitamin with folic acid 1 TABLET tablet 1 tab PO DAILY Patient Comments: VITAMIN Dificid 200 mg tablet 200 mg PO Q12H sucralfate 100 mg/mL suspension 10 ml PO ACHS Patient Comments: Take 10 mL by mouthEbefore meals and at bedtime. (560cc=2wks) apixaban 5 mg tablet 5 mg PO BID Qty: 180 3RF potassium chloride 20 mEq tablet,ER particles/crystals 20 meq PO DAILY Qty: 180 3RF furosemide 40 mg tablet 40 mg PO DAILY Qty: 90 3RF Referrals / Follow Up: Minerva Shaver MD [Primary Care Provider] - Within 1 Week Disposition Disposition (needs filled in before D/C Order can be placed): Home, Self Care Charges/Coding Visit Charges Inpatient E&M: 10624 Disch Hosp >30min 01/02/23 1014 <Electronically signed by Josep Vasquez MD> Cosigner Signature (if applicable): CC: Dr. Minerva Shaver MD; Dr. Josep Vasquez MD~ Signed ADDENDUM by Dr. Josep Vasquez MD on 01/02/23 at 1451 Addendum Was assessed for home oxygen which she did qualify patient will require 2 L flowper minute with ambulation. Patient will need portability since he is ambulatory at home as well as in the community 01/02/23 1451<Electronically signed by Josep Vasquez MD> Cosigner Signature (if applicable): cc: Dr. Minerva Shaver MD; Dr. Josep Vasquez MD ~* Signed [facility] Work Phone: 1(448) 748-161808-24-2023 Progress note Author Josep Vasquez [facility] January 02, 2023 10:07am Note Date/Time January 02, 2023 8: 16am [facility] Medical Records Department [address] [place] [address] Progress Note - Hospitalist 01/02/23812 MR#: [id number] Acct: [id number] Name: ELIZABETH PERSAUD Rep #:[id number] : 1945 77 From: Josep Vasquez MD PCP: Dr. Minerva Shaver MD Status:ADM I N Location: [place] [address] Reason for Visit Reason for Visit: Diagnoses Acute on chronic diastolic (congestive) heart failure (12/31/22) Heart failure, unspecified (12/31/22) Acute respiratory failure with hypoxia (12/31/22) Acute kidney failure, unspecified (12/31/22) Localized edema (12/31/22) Other specified abnormal findings of blood chemistry (12/31/22) Subjective Subjective Patient seen clinical condition continues to improve. Plan is for patient to beassessed for home oxygen need prior to discharge Objective Data Objective Data Vital Signs: Vital Signs Temp Pulse Resp BP Pulse Ox O2 Del Method O2 Flow Rate 97.3 F L 60 20 H 132/55 H 93 Nasal Cannula 1 01/02/23 04:00 01/02/23 07:02 01/02/23 07:02 01/02/23 06:20 01/02/23 07:02 01/02/23 07:02 01/02/23 07:02 FiO2 35 12/31/22 03:43 Oxygen Flow Rate (L/min) 1 Oxygen Delivery Method Nasal Cannula Weight: 63.4 kg Body Mass Index (BMI) 26.4 Intake & Output: Intake and Output for Last 24 Hours 12/31/22 01/01/23 01/02/23 23:59 23:59 23:59 Intake Total 1325.00 / 1325.00 1145 / 1145 Output Total 700 / 700 50 / 50 Balance 625.00 / 625.00 1095 / 1095 Lab / Micro Data 01/02/23 05:30 01/02/23 05:30 Labs: Laboratory Results - last 24 hr 01/02/23 05:30: WBC 8.5, RBC 3.42 L, Hgb 10.1 L, Hct 32.6 L, MCV 95.3, MCH 29.5,MCHC 31.0 L, RDW Std Deviation 44.7 H, RDW Coeff of Elvie 12.8, Plt Count 245, MPV9.7, Immature Gran % (Auto) 0.400, Neut % (Auto) 64.1, Lymph % (Auto) 25.2, Willacy% (Auto) 8.0, Eos % (Auto) 2.1, Baso % (Auto) 0.2, Absolute Neuts (auto) 5.4, Absolute Lymphs (auto) 2.13, Nucleated RBC % 0, Sodium 140, Potassium 4.7, Chloride 105, Carbon Dioxide 33.0 H, Anion Gap 2 L, BUN 42 H, Creatinine 1.31 H,Estim Creat Clear Calc 28.00, Est GFR (MDRD) Af Amer 51 L, Est GFR (MDRD) Non-Af42 L, BUN/Creatinine Ratio 32.1 H, Glucose 108 H, Calcium 8.6 Micro: Microbiology 12/31/22 03:45 Mucosa - Nasopharyngeal Respiratory Panel (PCR) - Final 12/31/22 03:45 Nasal Secretion SARS-CoV-2 Antigen (Rapid) - Final 12/31/22 04:35 Urine, Clean Catch Legionella Antigen - Final 12/31/22 04:35 Urine, Clean Catch Streptococcus pneumoniae Antigen (M - Final Rhythm Strip Rhythm Strip: Sinus Rhythm Rate: 63 Ectopy: None Physical Exam Narrative GENERAL: cooperative HEENT: Atraumatic; normocephalic EYES; Anicteric, Normal Conjunctiva NECK; supple, normal thyroid, RESPIRATORY: Diminished to auscultation CARDIOVASCULAR: Regular S1 S2, GI: soft, normoactive bowel sounds, : No Renal angle tenderness; EXTREMITIES: No edema, no clubbing, MUSCULOSKELETAL: no muscle wasting NEURO: Awake; no lateralizing signs. SKIN: No Rash PSYCH; Flat affect Assessment & Plan Assessment/Plan (1) Acute exacerbation of CHF (congestive heart failure): QUALIFIERS: Heart failure type: diastolic Qualified Code(s): I50.33 - Acute on chronic diastolic (congestive) heart failure (2) Acute respiratory failure with hypoxia: (3) GALINA (acute kidney injury): PLAN: Plan Patient is a 77-year-old lady admitted with shortness of breath of 4 days duration. Patient was found to be significantly hypoxic saturating 80% on room air when she presented to the emergency department. An assessment of acute hypoxia secondary to congestive heart failure with preserved ejection fraction made admitted to a monitored bed for further management 1. Acute hypoxic respiratory failure ? Secondary to acute on chronic congestive heart failure with preserved ejectionfraction as well as suspected pneumonia. Admitted to a monitored bed managed with strict input and output Daily weight diuretics. Patient progress monitor with daily BMPs 2. Pneumonia - Suspected to be secondary to streptococcal pneumonia, Blood and sputum cultures sent. Patient placed on Rocephin and Zithromax and placed on oxygen titrated to keep Pulse Ox greater than 90 3. Acute kidney injury ? Baseline creatinine 0.7-0.95 creatinine on admission was 1.29 to expect improvement with diuresis ? 01/01/2023 patient kidney function did worsen resulting in discontinuation of Lasix patient losartan being held 4. Mild COPD exacerbation ? Managed with bronchodilator treatment as well as p.o. prednisone 5. C. difficile infection ? Patient is on Dificid?continue 6. Paroxysmal A-fib ? Rate controlled on flecainide as well as systemic anticoagulation with apixaban 7. Left-sided carotid artery aneurysm ? Patient is followed by Dr. Chaidez at [facility] as outpatient 8. Hypertension - Blood pressure controlled, home medications continued with dose adjustment as needed 9. Moses's esophagus ? Patient is on famotidine as well as Carafate did continue 10. Chronic pain syndrome ? Patient is some Flexeril as well as acetaminophen as needed 11. History of DVT ? Patient is on apixaban 12. DVT prophylaxis ? Patient on apixaban 13. Physical deconditioning - Requested for PT OT eval and social work program coordinator to assist with discharge planning Time spent in the patient's overall evaluation,decision-making process, review of diagnostic data, adjustment of management, discussion with other providers, nursing nursing and ancillary staff involved in patient's care documentation, 35minutes Charges/Coding Visit Charges Inpatient E&M: 67578 Subs Hosp L2 01/02/23 1007 <Electronically signed by Josep Vasquez MD> Cosigner Signature (if applicable): CC: ~ Signed [facility] Work Phone: 1(756) 339-919008-23-2023 Progress note [facility] January 01, 2023 10:15am Note Date/Time January 01, 2023 7: 54am [facility] Medical Records Department [address] [place] [address] Progress Note - Hospitalist 01/01/23 0754 MR#: [id number] Acct: [id number] Name: ELIZABETH PERSAUD Rep #:[id number] : 1945 77 From: Josep Vasquez MD PCP: Dr. Minerva Shaver MD Status:ADM I N Location: [place] [address] Reason for Visit Reason for Visit: Diagnoses Acute on chronic diastolic (congestive) heart failure (12/31/22) Heart failure, unspecified (12/31/22) Acute respiratory failure with hypoxia (12/31/22) Acute kidney failure, unspecified (12/31/22) Localized edema (12/31/22) Other specified abnormal findings of blood chemistry (12/31/22) Subjective Subjective Patient seen breathing improved kidney function however did worsen patient is onLasix discontinued Objective Data Objective Data Vital Signs: Vital Signs Temp Pulse Resp BP Pulse Ox O2 Del Method O2 Flow Rate 96.4 F L 49 L 16 141/54 H 99 Nasal Cannula 2 01/01/23 05:00 01/01/23 05:00 01/01/23 05:00 01/01/23 05:00 01/01/23 05:00 01/01/23 05:00 01/01/23 05:00 FiO2 35 12/31/22 03:43 Oxygen Flow Rate (L/min) 2 Oxygen Delivery Method Nasal Cannula Weight: 63.4 kg Body Mass Index (BMI) 26.4 Intake & Output: Intake and Output for Last 24 Hours 12/30/22 12/31/22 01/01/23 23:59 23:59 23:59 Intake Total 1325.00 / 1325.00 240 / 240 Output Total 700 / 700 50 / 50 Balance 625.00 / 625.00 190 / 190 Lab / Micro Data 01/01/23 04:45 01/01/23 04:45 Labs: Laboratory Results - last 24 hr 12/31/22 05:59: Sodium 142, Potassium 4.3, Chloride 104, Carbon Dioxide 30.0, Anion Gap 8, BUN 33 H, Creatinine 1.13 H, Estim Creat Clear Calc 32.46, Est GFR (MDRD) Af Amer 60, Est GFR (MDRD) Non-Af 50 L, BUN/Creatinine Ratio 29.2 H, Glucose 139 H, Calcium 9.2, Phosphorus 4.7, Magnesium 2.3, Total Bilirubin 0.40,AST 49 H, ALT 114 H, Alkaline Phosphatase 100, Total Protein 6.8, Albumin 3.6, Globulin 3.2, Albumin/Globulin Ratio 1.1, TSH 2.77 12/31/22 09:52: Troponin I High Sens 57 H 01/01/23 04:45: WBC 8.6, RBC 3.50 L, Hgb 10.3 L, Hct 33.0 L, MCV 94.3, MCH 29.4,MCHC 31.2 L, RDW Std Deviation 45.0 H, RDW Coeff of Elvie 13.2, Plt Count 256, MPV10.1, Immature Gran % (Auto) 0.500, Neut % (Auto) 61.1, Lymph % (Auto) 27.7, Willacy % (Auto) 9.2, Eos % (Auto) 1.2, Baso % (Auto) 0.3, Absolute Neuts (auto) 5.3, Absolute Lymphs (auto) 2.38, Nucleated RBC % 0, Sodium 142, Potassium 4.4, Chloride 104, Carbon Dioxide 33.0 H, Anion Gap 5, BUN 41 H, Creatinine 1.55 H, Estim Creat Clear Calc 23.66, Est GFR (MDRD) Af Amer 42 L, Est GFR (MDRD) Non-Af35 L, BUN/Creatinine Ratio 26.5 H, Glucose 109 H, Calcium 8.5, Phosphorus 5.3 H,Magnesium 2.6 Micro: Microbiology 12/31/22 03:45 Mucosa - Nasopharyngeal Respiratory Panel (PCR) - Final 12/31/22 03:45 Nasal Secretion SARS-CoV-2 Antigen (Rapid) - Final 12/31/22 04:35 Urine, Clean Catch Legionella Antigen - Final 12/31/22 04:35 Urine, Clean Catch Streptococcus pneumoniae Antigen (M - Final Radiography Diagnostic Testing: Radiology Impression Echocardiogram 12/31/22 05:55 Interpretation Summary The left ventricular ejection fraction is 60 %. Diastolic function is indeterminate. The left atrium is moderately enlarged. Aortic sclerosis, no stenosis. Mild (1+) mitral valve insufficiency. The study was technically difficult. Ordering Physician: Stephanie Scales Referring Physician: Minerva Shaver Performed By: Usha Mcdonald RDCS, RVT Rhythm Strip Rhythm Strip: Sinus Rhythm Rate: 63 Ectopy: None Physical Exam Narrative GENERAL: cooperative HEENT: Atraumatic; normocephalic EYES; Anicteric, Normal Conjunctiva NECK; supple, normal thyroid, RESPIRATORY: Diminished to auscultation CARDIOVASCULAR: Regular S1 S2, GI: soft, normoactive bowel sounds, : No Renal angle tenderness; EXTREMITIES: No edema, no clubbing, MUSCULOSKELETAL: no muscle wasting NEURO: Awake; no lateralizing signs. SKIN: No Rash PSYCH; Flat affect Assessment & Plan Assessment/Plan (1) Acute exacerbation of CHF (congestive heart failure): QUALIFIERS: Heart failure type: diastolic Qualified Code(s): I50.33 - Acute on chronic diastolic (congestive) heart failure (2) Acute respiratory failure with hypoxia: (3) GALINA (acute kidney injury): PLAN: Plan Patient is a 77-year-old lady admitted with shortness of breath of 4 days duration. Patient was found to be significantly hypoxic saturating 80% on room air when she presented to the emergency department. An assessment of acute hypoxia secondary to congestive heart failure with preserved ejection fraction made admitted to a monitored bed for further management 1. Acute hypoxic respiratory failure ? Secondary to acute on chronic congestive heart failure with preserved ejectionfraction as well as suspected pneumonia. Admitted to a monitored bed managed with strict input and output Daily weight diuretics. Patient progress monitor with daily BMPs 2. Pneumonia - Suspected to be secondary to streptococcal pneumonia, Blood and sputum cultures sent. Patient placed on Rocephin and Zithromax and placed on oxygen titrated to keep Pulse Ox greater than 90 3. Acute kidney injury ? Baseline creatinine 0.7-0.95 creatinine on admission was 1.29 to expect improvement with diuresis ? 01/01/2023 patient kidney function did worsen resulting in discontinuation of Lasix patient losartan being held 4. Mild COPD exacerbation ? Managed with bronchodilator treatment as well as p.o. prednisone 5. C. difficile infection ? Patient is on Dificid?continue 6. Paroxysmal A-fib ? Rate controlled on flecainide as well as systemic anticoagulation with apixaban 7. Left-sided carotid artery aneurysm ? Patient is followed by Dr. Chaidez at [facility] as outpatient 8. Hypertension - Blood pressure controlled, home medications continued with dose adjustment as needed 9. Moses's esophagus ? Patient is on famotidine as well as Carafate did continue 10. Chronic pain syndrome ? Patient is some Flexeril as well as acetaminophen as needed 11. History of DVT ? Patient is on apixaban 12. DVT prophylaxis ? Patient on apixaban 13. Physical deconditioning - Requested for PT OT eval and social work program coordinator to assist with discharge planning Time spent in the patient's overall evaluation,decision-making process, review of diagnostic data, adjustment of management, discussion with other providers, nursing nursing and ancillary staff involved in patient's care documentation, 50 Minutes Charges/Coding Visit Charges Inpatient E&M: 63316 Subs Hosp L3 01/01/23 1015 <Electronically signed by Josep Vasquez MD> Cosigner Signature (if applicable): CC: ~ Signed [facility] Work Phone: 1(180) 642-988808-22-2023 Progress note Author Josep Martíneztito [facility] December 31, 2022 9:41am Note Date/Time December 31, 2022 7: 42am [facility] Medical Records Department [address] [place] [address] Progress Note - Hospitalist 12/31/22 0737 MR#: [id number] Acct: [id number] Name: ELIZABETH PERSAUD Rep #:[id number] : 1945 77 From: Josep Vasquez MD PCP: Dr. Minerva Shaver MD Status:ADM I N Location: [place] [address] Reason for Visit Reason for Visit: Diagnoses Heart failure, unspecified (12/31/22) Acute respiratory failure with hypoxia (12/31/22) Acute kidney failure, unspecified (12/31/22) Localized edema (12/31/22) Other specified abnormal findings of blood chemistry (12/31/22) Subjective Subjective Patient is a 77-year-old lady admitted with shortness of breath of 4 days duration. Patient was found to be significantly hypoxic saturating 80% on room air when she presented to the emergency department. An assessment of acute hypoxia secondary to congestive heart failure with preserved ejection fraction made admitted to a monitored bed for further management Objective Data Objective Data Vital Signs: Vital Signs Temp Pulse Resp BP Pulse Ox O2 Del Method O2 Flow Rate 97.8 F 60 19 H 165/92 H 96 Nasal Cannula 4 12/31/22 06:00 12/31/22 06:02 12/31/22 06:00 12/31/22 06:42 12/31/22 06:00 12/31/22 06:00 12/31/22 06:00 FiO2 35 12/31/22 03:43 Oxygen Flow Rate (L/min) 4 Oxygen Delivery Method Nasal Cannula Weight: 63.9 kg Body Mass Index (BMI) 26.6 Intake & Output: Intake and Output for Last 24 Hours 12/29/22 12/30/22 12/31/22 23:59 23:59 23:59 Intake Total 50 / 50 Output Total 250 / 250 Balance -200 / -200 Lab / Micro Data 12/31/22 05:59 12/31/22 05:59 Labs: Laboratory Results - last 24 hr 12/31/22 01:17: WBC 16.3 H, RBC 4.10 L, Hgb 12.4, Hct 38.3, MCV 93.4, MCH 30.2, MCHC 32.4, RDW Std Deviation 43.9, RDW Coeff of Elvie 12.9, Plt Count 335, MPV 10.2, Immature Gran % (Auto) 0.500, Neut % (Auto) 71.3 H, Lymph % (Auto) 20.8, Willacy % (Auto) 6.4, Eos % (Auto) 0.7, Baso % (Auto) 0.3, Absolute Neuts (auto) 11.7 H, Absolute Lymphs (auto) 3.39, Nucleated RBC % 0, Sodium 142, Potassium 4.5, Chloride 107, Carbon Dioxide 29.0, Anion Gap 6, BUN 36 H, Creatinine 1.29 H, Estim Creat Clear Calc 28.43, Est GFR (MDRD) Af Amer 52 L, Est GFR (MDRD) Non-Af 43 L, BUN/Creatinine Ratio 27.9 H, Glucose 148 H, Calcium 9.5, Troponin I High Sens 6, B-Natriuretic Peptide 394.7 H 12/31/22 04:16: Troponin I High Sens 26 12/31/22 05:59: WBC 12.9 H, RBC 4.04 L, Hgb 12.1, Hct 37.6, MCV 93.1, MCH 30.0, MCHC 32.2, RDW Std Deviation 43.9, RDW Coeff of Elvie 12.9, Plt Count 271, MPV 9.9, Immature Gran % (Auto) 0.500, Neut % (Auto) 81.0 H, Lymph % (Auto) 12.9 L, Willacy % (Auto) 5.3, Eos % (Auto) 0.1, Baso % (Auto) 0.2, Absolute Neuts (auto) 10.5 H, Absolute Lymphs (auto) 1.67, Nucleated RBC % 0, Troponin I High Sens 42 Micro: Microbiology 12/31/22 03:45 Mucosa - Nasopharyngeal Respiratory Panel (PCR) - Final 12/31/22 03:45 Nasal Secretion SARS-CoV-2 Antigen (Rapid) - Final 12/31/22 04:35 Urine, Clean Catch Legionella Antigen - Final 12/31/22 04:35 Urine, Clean Catch Streptococcus pneumoniae Antigen (M - Final ABG Data ABG results: ABG 12/31/22 01:52 Specimen Type ART Sample Site R Brach pH 7.38 Bicarbonate Actual 26.2 H Total CO2 28 Base Excess 1 O2 Saturation 96 O2 % 45 ABG pCO2 44.6 ABG pO2 84 Terrence Test Positive Respiration Rate 12 O2 Delivery Device BiPAP POC PEEP 8 Clinical Comments BIPAP 14/8 R12 45% Radiography Diagnostic Testing: Radiology Impression Chest X-Ray 12/31/22 01:25 IMPRESSION: Increased interstitial prominence may represent an inflammatory or infectious process. CHF is thought to be less likely but is not excluded. No demonstrated focal pulmonary consolidation. Electronically Signed: Jimbo Pop MD at 2:45 EDT , Rhythm Strip Rhythm Strip: Sinus Rhythm Rate: 63 Ectopy: None Physical Exam Narrative GENERAL: cooperative HEENT: Atraumatic; normocephalic EYES; Anicteric, Normal Conjunctiva NECK; supple, normal thyroid, RESPIRATORY: Diminished to auscultation CARDIOVASCULAR: Regular S1 S2, GI: soft, normoactive bowel sounds, : No Renal angle tenderness; EXTREMITIES: No edema, no clubbing, MUSCULOSKELETAL: no muscle wasting NEURO: Awake; no lateralizing signs. SKIN: No Rash PSYCH; Flat affect Assessment & Plan Assessment/Plan (1) Acute exacerbation of CHF (congestive heart failure): QUALIFIERS: Heart failure type: diastolic Qualified Code(s): I50.33 - Acute on chronic diastolic (congestive) heart failure (2) Acute respiratory failure with hypoxia: (3) GALINA (acute kidney injury): PLAN: Plan Patient is a 77-year-old lady admitted with shortness of breath of 4 days duration. Patient was found to be significantly hypoxic saturating 80% on room air when she presented to the emergency department. An assessment of acute hypoxia secondary to congestive heart failure with preserved ejection fraction made admitted to a monitored bed for further management 1. Acute hypoxic respiratory failure ? Secondary to acute on chronic congestive heart failure with preserved ejectionfraction as well as suspected pneumonia. Admitted to a monitored bed managed with strict input and output Daily weight diuretics. Patient progress monitor with daily BMPs 2. Pneumonia - Suspected to be secondary to streptococcal pneumonia, Blood and sputum cultures sent. Patient placed on Rocephin and Zithromax and placed on oxygen titrated to keep Pulse Ox greater than 90 3. Acute kidney injury ? Baseline creatinine 0.7-0.95 creatinine on admission was 1.29 to expect improvement with diuresis 4. Mild COPD exacerbation ? Managed with bronchodilator treatment as well as p.o. prednisone 5. C. difficile infection ? Patient is on Dificid?continue 6. Paroxysmal A-fib ? Rate controlled on flecainide as well as systemic anticoagulation with apixaban 7. Left-sided carotid artery aneurysm ? Patient is followed by Dr. Chaidez at [facility] as outpatient 8. Hypertension - Blood pressure controlled, home medications continued with dose adjustment as needed 9. Moses's esophagus ? Patient is on famotidine as well as Carafate did continue 10. Chronic pain syndrome ? Patient is some Flexeril as well as acetaminophen as needed 11. History of DVT ? Patient is on apixaban 12. DVT prophylaxis ? Patient on apixaban Time spent in the patient's overall evaluation,decision-making process, review of diagnostic data, adjustment of management, discussion with other providers, nursing nursing and ancillary staff involved in patient's care documentation, 50 Minutes Charges/Coding Visit Charges Inpatient E&M: 40547 Subs Hosp L3 12/31/22 0941 <Electronically signed by Josep Vasquez MD> Cosigner Signature (if applicable): CC: ~ Signed [facility] Work Phone: 1(324) 346-781108-22-2023 Discharge summary Author Sohan Shelton [facility] December 31, 2022 4:41am Note Date/Time December 31, 2022 1: 29am [facility] Medical Records Department [address] [place] [address] Emergency Department Summary 12/31/22 MR#: [id number] Acct: [id number] Name: ELIZABETH PERSAUD Rep #:[id number] : 1945 77 From: Sohan Shelton MD PCP: Dr. Minerva Shaver MD Status:ADM I N Location: [place] [address] HPI History of Present Illness Chief Complaint: Shortness of Breath Informant: patient and EMS Narrative Narrative: 77-year-old female started getting short of breath yesterday but became much worse tonight, was 80% on room air according to EMS who put her on CPAP, patientstates that did start to help some. She is not on home oxygen. She does not have any history of lung disease but she does have a history of congestive heartfailure. She states she has been compliant with her medications without any significant changes lately except for adding iron, and when she takes her diuretic it does still make her urinate well. Denies any chest discomfort, cough, fevers or chills, syncope. She does have new swelling in her legs. 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 Non-rheumatic tricuspid valve insufficiency Nonrheumatic aortic valve stenosis Panlobular emphysema Paroxysmal atrial fibrillation Rotator cuff tear Scoliosis of cervical spine Shoulder pain SOB (shortness of breath) Tendonitis of shoulder, right Tubular adenoma of colon URI (upper respiratory infection) Home Medications multivitamin with folic acid 400 mcg tablet 1 tab PO DAILY supplement 03/15/13 [History Last Taken 10/31/18 07:00] melatonin 3 mg capsule 3 mg PO HS Check with primary doctor 01/19/21 [History Last Taken Unknown] calcium carbonate 500 mg calcium (1,250 mg) tablet 500 mg PO DAILY Check with primary doctor 06/25/21 [History Last Taken Unknown] apixaban 5 mg tablet 5 mg PO BID #180 tabs 06/14/22 [Rx Last Taken 08/05/22] cyclobenzaprine 10 mg tablet 10 mg PO HS PRN muscle spasm 07/25/22 [History Last Taken Unknown] famotidine 20 mg tablet 20 mg PO BID Check with primary doctor 07/25/22 [History Last Taken Unknown] potassium chloride 20 mEq tablet,extended release(part/cryst) 20 meq PO DAILY #180 tabs 07/25/22 [Rx Last Taken Unknown] flecainide 100 mg tablet 100 mg PO Q12H 08/27/22 [History Last Taken Unknown] furosemide 40 mg tablet 40 mg PO DAILY #90 tabs 09/26/22 [Rx Last Taken Unknown] metoprolol succinate 50 mg tablet,extended release 24 hr 50 mg PO BID #60 tabs 10/03/22 [Rx Last Taken Unknown] valsartan 40 mg tablet 20 mg PO DAILY 10/03/22 [History Last Taken Unknown] fidaxomicin 200 mg tablet (Dificid) 200 mg PO Q12H 12/31/22 [History Last Taken Unknown] sucralfate 100 mg/mL oral suspension 10 ml PO ACHS 12/31/22 [History Last Taken Unknown] Allergy/AdvReac Type Severity Reaction Status Date / Time etodolac Allergy Intermediate Other Verified 12/31/22 01:21 diltiazem HCl [From Cardizem] Allergy Swelling Verified 12/31/22 01:21 of face and neck naproxen Allergy Swelling Verified 12/31/22 01:21 (whole body) prednisone Allergy Other Verified 12/31/22 01:21 amiodarone AdvReac Severe Severe Verified 12/31/22 01:21 dyspnea after taking PO Amiodarone adhesive AdvReac Rash Verified 12/31/22 01:21 albuterol AdvReac Other Verified 12/31/22 01:21 codeine AdvReac Vomiting Verified 12/31/22 01:21 hydrocodone bitartrate AdvReac Vomiting Verified 12/31/22 01:21 [From Vicodin] morphine AdvReac Vomiting Verified 12/31/22 01:21 Family History Sister Afib Father CAD (coronary artery disease) Brother CVA (cerebral vascular accident) Mother No problems noted. Sister No problems noted. Brother Wilsons disease Brother Wilsons disease Surgical History H/O hernia repair H/O neck surgery History of cardioversion (11/23/18) History of left heart catheterization (03/15/13) History of radiofrequency ablation procedure for cardiac arrhythmia (07/27/15) Hx of cholecystectomy Hx of fusion of cervical spine ovarian surgery Social History Smoking Status: Former smoker alcohol intake: never substance use type: does not use caffeine: Yes Type: coffee Number of servings: 1 what type of physical activity do you participate in: walking frequency: daily seatbelt use: always do you feel safe at home: Yes ROS ROS ED Review of Systems ROS Unobtainable: other Details: Limited ROS due to acuity/dyspnea Constitutional Constitutional ED: Reports fatigue; Denies chills or fever(s) Cardiovascular Cardiovascular: Reports leg edema; Denies chest pain or palpitations Respiratory/Chest Respiratory/Chest: Reports dyspnea; Denies cough Gastrointestinal Gastrointestinal: Denies abdominal pain or vomiting EXAM Physical Exam Const Vital Signs: 12/31/22 01:21 12/31/22 01:21 12/31/22 01:28 Temperature 96.6 F L Temperature Source Temporal Pulse Rate 68 Respiratory Rate 20 H Respiratory Effort Short of Breath Nasal Flaring Respiratory Depth Deep Respiratory Pattern Tachypnea Blood Pressure 200/130 H Blood Pressure Mean 153 Pulse Ox 96 Oxygen Delivery Method Bi-pap Bi-pap Fraction of Inspired Oxygen (FIO2) 12/31/22 01:36 12/31/22 01:26 12/31/22 01:59 Temperature Temperature Source Pulse Rate 61 61 Respiratory Rate 27 H 28 H 21 H Respiratory Effort Respiratory Depth Respiratory Pattern Blood Pressure 123/98 H Blood Pressure Mean 106 Pulse Ox 97 97 98 Oxygen Delivery Method Bi-pap Fraction of Inspired Oxygen (FIO2) 45 12/31/22 02:00 Temperature Temperature Source Pulse Rate 62 Respiratory Rate 26 H Respiratory Effort Respiratory Depth Respiratory Pattern Blood Pressure 180/79 H Blood Pressure Mean 104 Pulse Ox 96 Oxygen Delivery Method Bi-pap Fraction of Inspired Oxygen (FIO2) Positive well nourished and well developed Constitutional Narrative: Acute respiratory distress General Appearance ED: well developed HEENT Reports moist mucous membranes normocephalic and atraumatic Eyes PERRL and EOMs intact bilaterally Neck full ROM and supple Neck Narrative: Positive JVD Resp Resp Narrative: Respiratory distress speaking in 1-2 word sentences. Diffuse expiratory Rales. Breath sounds are equal bilaterally. Cardio regular rate and regular rhythm Rate: Negative for tachycardic GI non-tender and non-distended Auscultation: normoactive bowel sounds Palpation: soft Back/Spine no CVA tenderness General Back: other FROM Extremity normal to inspection General Extremety ED: Yes edema; Negative for pulses abnormal or tenderness General Extremity: edema bilateral lower extremity Details: moderate; Negative for pulses abnormal Neuro oriented x3, CN's II-XII intact bilaterally and no sensory deficits noted Sensorium / Orientation: awake and alert Motor Exam: strength 5/5 throughout Skin no rashes or lesions noted and no wounds MDM MDM MDM Narrative Medical decision making narrative: Suspect acute decompensated congestive heart failure. Continued BiPAP, oxygen, and gave the patient Lasix 40 mg. Initial blood pressure reading 200/130 so nitroglycerin ordered as well, but nursing is saying now her systolic is only 124 so I am holding the nitroglycerin. On reevaluation, she is breathing much better and doing well on BiPAP, which we will continue in the hospital. Mild GALINA, leukocytosis likely due to the stress,I do not think she has pneumonia. BNP elevated, troponin within normal limits EKG does not show any acute injury pattern. History & Record Review Additional record(s) reviewed:: Prior outpatient record (Echo 08/06/2022 with EF55%, stage III diastolic dysfunction) Lab Data Attestation: I reviewed the patient's lab results. Labs: Laboratory Results - last 24 hr 12/31/22 01:17 WBC 16.3 H RBC 4.10 L Hgb 12.4 Hct 38.3 MCV 93.4 MCH 30.2 MCHC 32.4 RDW Std Deviation 43.9 RDW Coeff of Elvie 12.9 Plt Count 335 MPV 10.2 Immature Gran % (Auto) 0.500 Neut % (Auto) 71.3 H Lymph % (Auto) 20.8 Willacy % (Auto) 6.4 Eos % (Auto) 0.7 Baso % (Auto) 0.3 Absolute Neuts (auto) 11.7 H Absolute Lymphs (auto) 3.39 Nucleated RBC % 0 Sodium 142 Potassium 4.5 Chloride 107 Carbon Dioxide 29.0 Anion Gap 6 BUN 36 H Creatinine 1.29 H Estim Creat Clear Calc 28.43 Est GFR (MDRD) Af Amer 52 L Est GFR (MDRD) Non-Af 43 L BUN/Creatinine Ratio 27.9 H Glucose 148 H Calcium 9.5 Troponin I High Sens 6 B-Natriuretic Peptide 394.7 H ABG Data ABG results: ABG 12/31/22 01:52 Specimen Type ART Sample Site R Brach pH 7.38 Bicarbonate Actual 26.2 H Total CO2 28 Base Excess 1 O2 Saturation 96 O2 % 45 ABG pCO2 44.6 ABG pO2 84 Terrence Test Positive Respiration Rate 12 O2 Delivery Device BiPAP POC PEEP 8 Clinical Comments BIPAP 14/8 R12 45% Radiography Chest X-Ray - ED: 1 View, Read by ED Physician and CHF Rhythm Strip Rhythm Strip: Sinus Rhythm Rate: 63 Ectopy: None EKG Initial EKG: Attestation: I personally reviewed and interpreted this EKG as follows: Interpretation: Sinus Rhythm, No Acute Injury Pattern and LAFB Prior EKG tracings: available for review Prior: Unchanged Management Discussion w/another healthcare provider: Hospitalist Critical Care Time Critical Care Time: Yes Critical care time (excluding procedures): 30-74 minutes (36 min), Including time spent:, Discussing w/Patient &/or Family/Pole Climber, Discussing w/Consultants, Arranging Admission or Transfer and Performing Direct Patient Care at Bedside Discharge Plan Triage Chief Complaint: Shortness of Breath ED Provider: Sohan Shelton Dx/Rx/DC Orders Clinical Impression: GALINA (acute kidney injury), Acute respiratory failure with hypoxia, Acute exacerbation of CHF (congestive heart failure) Prescriptions: No Action melatonin 3 mg capsule 3 mg PO HS calcium carbonate 500 mg calcium (1,250 mg) tablet 500 mg PO DAILY cyclobenzaprine 10 mg tablet 10 mg PO HS PRN (Reason: muscle spasm) famotidine 20 mg tablet 20 mg PO BID Patient Comments: Take 1 tablet by mouthUtwice daily. flecainide 100 mg tablet 100 mg PO Q12H valsartan 40 mg tablet 20 mg PO DAILY metoprolol succinate 50 mg tablet extended release 24 hr 50 mg PO BID Qty: 60 11RF multivitamin with folic acid 1 TABLET tablet 1 tab PO DAILY Patient Comments: VITAMIN Dificid 200 mg tablet 200 mg PO Q12H sucralfate 100 mg/mL suspension 10 ml PO ACHS Patient Comments: Take 10 mL by mouthEbefore meals and at bedtime. (560cc=2wks) apixaban 5 mg tablet 5 mg PO BID Qty: 180 3RF potassium chloride 20 mEq tablet,ER particles/crystals 20 meq PO DAILY Qty: 180 3RF furosemide 40 mg tablet 40 mg PO DAILY Qty: 90 3RF Primary Care Provider: Minerva Shaver Referrals: Minerva Shaver MD [Primary Care Provider] - Disposition Disposition: Acute Care Hospital [facility] What to do if you have Problems For any increased pain, shortness of breath, bleeding, nausea or vomiting, chestpain, or any unexpected problems, contact your Primary Care Provider. Call [facility] ([phone]) or report to the closest Emergency Room. Call 911 if necessary. 12/31/22 0441 <Electronically signed by Sohan Shelton MD> Cosigner Signature (if applicable): CC: Dr. Minerva Shaver MD ~ Signed [facility] Work Phone: 1(223) 522-257908-22-2023 History and physical note Author Stephanie Scales [facility] December 31, 2022 3:10am Note Date/Time December 31, 2022 2: 29am [facility] Medical Records Department [address] [place] [address] H&P Exam - Hospitalist 12/31/22 0228 MR#: [id number] Acct: [id number] Name: ELIZABETH PERSAUD Rep #:[id number] : 1945 77 From: Stephanie Scales DO PCP: Dr. Minerva Shaver MD Status:ADM I N Location: [place] [address] HPI - General General Date of Admission: 12/31/22 Date of Service: 12/31/22 Chief Complaint: Shortness of breath HPI Narrative ELIZABETH PERSAUD, is a 77 F who presented to the emergency department at [facility] with a chief complaint of shortness of breath. Dated she started having shortness of breath yesterday and today her shortness of breath worsened. She tried to go to bed but could not lie flat so she called the squad. Oxygen saturations were 80% on room air at the time of their arrival. She has started some coughing today this evening that is nonproductive. She reports she has had low-grade temperatures at home but has been afebrile since presentation here. She has had no sick contacts, no chills, no headache, no rhinorrhea, no chest pain, no nausea or vomiting, no diarrhea. She does admit tohaving C. difficile for which she is taking Dificid but denies any current diarrhea at this time. She denies ever utilizing oxygen at home. She does admit to worsening lower extremity swelling for which she double up her Lasix last week. She states this initially helped some but since has not been helpful. She states she does not salt her food or eat out much. She does not watch her fluid intake. She admits to weight gain of 15 pounds since July whenshe had her stroke. She was unable to tell me if she has had any acute weight gain in the last week or so. Vital signs on presentation showed temperature of 96.6, heart rate was 68, bloodpressure was 200/130 with a repeat at 180/79, respiratory rate has been anywherefrom 20-28 and oxygen saturations on presentation here were 96% on BiPAP. In the field they were 80% on room air. Her CBC did show a white count of 16.3 with a mild left shift that is 71.3% neutrophilia. Her blood gas showed a normal pH at 7.38/PCO2 44.6/PO2 was 84 on BiPAP at 45% FiO2. Her chemistry panel showed an elevated BUN at 36 and creatinine elevation at 1.29 above her baseline of 0.7- 0.95. Most recently her serum creatinine was 0.77 on 08/27/2022. Her glucose was 148. Troponin was 6. BNP was 394.7. Chest x-ray demonstrated increased interstitial prominence that was felt to be inflammatory infectious process. CHF was considered however felt to be less likely. No focal consolidation was identified. EKG showed normal sinus rhythm with out QTc prolongation, normal MA interval, and no ST/T wave changes concerning for acute ischemia. 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 Non-rheumatic tricuspid valve insufficiency Nonrheumatic aortic valve stenosis Panlobular emphysema Paroxysmal atrial fibrillation Rotator cuff tear Scoliosis of cervical spine Shoulder pain SOB (shortness of breath) Tendonitis of shoulder, right Tubular adenoma of colon URI (upper respiratory infection) Home Medications multivitamin with folic acid 400 mcg tablet 1 tab PO DAILY supplement 03/15/13 [History Last Taken 10/31/18 07:00] melatonin 3 mg capsule 3 mg PO HS Check with primary doctor 01/19/21 [History Last Taken Unknown] calcium carbonate 500 mg calcium (1,250 mg) tablet 500 mg PO DAILY Check with primary doctor 06/25/21 [History Last Taken Unknown] apixaban 5 mg tablet 5 mg PO BID #180 tabs 06/14/22 [Rx Last Taken 08/05/22] cyclobenzaprine 10 mg tablet 10 mg PO HS PRN muscle spasm 07/25/22 [History Last Taken Unknown] famotidine 20 mg tablet 20 mg PO BID Check with primary doctor 07/25/22 [History Last Taken Unknown] potassium chloride 20 mEq tablet,extended release(part/cryst) 20 meq PO DAILY #180 tabs 07/25/22 [Rx Last Taken Unknown] flecainide 100 mg tablet 100 mg PO Q12H 08/27/22 [History Last Taken Unknown] furosemide 40 mg tablet 40 mg PO DAILY #90 tabs 09/26/22 [Rx Last Taken Unknown] metoprolol succinate 50 mg tablet,extended release 24 hr 50 mg PO BID #60 tabs 10/03/22 [Rx Last Taken Unknown] valsartan 40 mg tablet 20 mg PO DAILY 10/03/22 [History Last Taken Unknown] fidaxomicin 200 mg tablet (Dificid) 200 mg PO Q12H 12/31/22 [History Last Taken Unknown] sucralfate 100 mg/mL oral suspension 10 ml PO ACHS 12/31/22 [History Last Taken Unknown] Allergy/AdvReac Type Severity Reaction Status Date / Time etodolac Allergy Intermediate Other Verified 12/31/22 01:21 diltiazem HCl [From Cardizem] Allergy Swelling Verified 12/31/22 01:21 of face and neck naproxen Allergy Swelling Verified 12/31/22 01:21 (whole body) prednisone Allergy Other Verified 12/31/22 01:21 amiodarone AdvReac Severe Severe Verified 12/31/22 01:21 dyspnea after taking PO Amiodarone adhesive AdvReac Rash Verified 12/31/22 01:21 albuterol AdvReac Other Verified 12/31/22 01:21 codeine AdvReac Vomiting Verified 12/31/22 01:21 hydrocodone bitartrate AdvReac Vomiting Verified 12/31/22 01:21 [From Vicodin] morphine AdvReac Vomiting Verified 12/31/22 01:21 Family History Sister Afib Father CAD (coronary artery disease) Brother CVA (cerebral vascular accident) Mother No problems noted. Sister No problems noted. Brother Wilsons disease Brother Wilsons disease Surgical History H/O hernia repair H/O neck surgery History of cardioversion (11/23/18) History of left heart catheterization (03/15/13) History of radiofrequency ablation procedure for cardiac arrhythmia (07/27/15) Hx of cholecystectomy Hx of fusion of cervical spine ovarian surgery Social History Smoking Status: Former smoker alcohol intake: never substance use type: does not use caffeine: Yes Type: coffee Number of servings: 1 what type of physical activity do you participate in: walking frequency: daily seatbelt use: always do you feel safe at home: Yes ROS Constitutional Constitutional: Reports change in weight and fever(s); Denies anorexia, chills, fatigue, malaise, night sweats, weakness or other Eyes Eyes: Denies blurry vision, change in eye color, change in vision, discharge from eye(s), double vision, erythema, eye pain, loss of vision or other ENT HEENT: Denies abnormal hearing, dysphagia, ear pain, epistaxis, headache(s), hearing loss, nasal congestion, nasal discharge, post nasal drip, sinus pressure, sore throat or other Cardiovascular Cardiovascular: Reports dyspnea on exertion, edema, orthopnea and paroxysmal nocturnal dyspnea; Denies chest pain, claudication, lightheadedness, palpitations, rapid heart rate, syncope or other Respiratory/Chest Respiratory/Chest: Reports cough, dyspnea, shortness of breath at rest and shortness of breath with exertion; Denies excessive phlegm production, hemoptysis, productive cough, wheezing or other Gastrointestinal Gastrointestinal: Denies abdominal pain, coffee ground emesis, constipation, diarrhea, dyspepsia, hematemesis, hematochezia, loose stools, melena, nausea, vomiting or other Genitourinary Genitourinary: Denies burning urination, difficulty urinating, dysuria, hematuria, nocturia, urinary frequency, urinary hesitancy, urinary incontinence,urinary urgency or other Musculoskeletal Musculoskeletal: Reports back pain; Denies arthralgias, joint pain, joint stiffness, joint swelling, myalgias, neck pain or other Neurologic Neurologic: Denies abnormal gait, abnormal speech, confusion, disequilibrium, dizziness, focal weakness, headache(s), numbness, paresthesias, seizure-like activity, seizures, syncope, tingling, tremor(s) or other Psychiatric Psychiatric: Denies anxiety, depression, homicidal ideation, suicidal ideation or other Endocrine Endocrinology: Denies change in body appearance, cold intolerance, excessive sweating, heat intolerance, polydipsia, polyuria or other Hematologic/Lymphatic Hematologic/Lymphatic: Denies anemia, easy bleeding, easy bruising, lymphadenopathy or other Allergic/Immunologic Allergic/Immunologic: Denies rhinitis, hives, eczemia, asthma or other Vital Signs Vital Signs Vital Signs: 12/31/22 01:21 12/31/22 01:21 12/31/22 01:28 Temperature 96.6 F L Temperature Source Temporal Pulse Rate 68 Respiratory Rate 20 H Respiratory Effort Short of Breath Nasal Flaring Respiratory Depth Deep Respiratory Pattern Tachypnea Blood Pressure 200/130 H Blood Pressure Mean 153 Pulse Ox 96 Oxygen Delivery Method Bi-pap Bi-pap Fraction of Inspired Oxygen (FIO2) 12/31/22 01:36 12/31/22 01:26 12/31/22 01:59 Temperature Temperature Source Pulse Rate 61 61 Respiratory Rate 27 H 28 H 21 H Respiratory Effort Respiratory Depth Respiratory Pattern Blood Pressure 123/98 H Blood Pressure Mean 106 Pulse Ox 97 97 98 Oxygen Delivery Method Bi-pap Fraction of Inspired Oxygen (FIO2) 45 12/31/22 02:00 12/31/22 02:10 12/31/22 02:15 Temperature Temperature Source Pulse Rate 62 62 55 L Respiratory Rate 26 H 22 H 24 H Respiratory Effort Respiratory Depth Respiratory Pattern Blood Pressure 180/79 H 171/92 H Blood Pressure Mean 104 117 Pulse Ox 96 98 97 Oxygen Delivery Method Bi-pap Bi-pap Fraction of Inspired Oxygen (FIO2) 12/31/22 02:20 Temperature Temperature Source Pulse Rate 56 L Respiratory Rate 20 H Respiratory Effort Respiratory Depth Respiratory Pattern Blood Pressure Blood Pressure Mean Pulse Ox 98 Oxygen Delivery Method Fraction of Inspired Oxygen (FIO2) Weight Weight: 68 kg Body Mass Index (BMI) 28.3 Physical Exam Const alert, oriented x3, no apparent distress and well nourished Constitutional Narrative: Older, white female, sitting up in bed currently on BiPAP, mentating well, interacts appropriately and able to converse despite being on BiPAP, nontoxic-appearing General Appearance: cooperative HEENT normocephalic, head/scalp atraumatic and hearing grossly normal bilaterally HEENT Narrative: Mallampati 2, no thrush mucous membranes are dry due to BiPAP Eyes PERRL, EOMs intact bilaterally and conjunctivae normal Eyes Narrative: No scleral icterus Neck no lymphadenopathy and supple Neck Narrative: Positive JVD, no carotid bruits bilaterally, trachea midline, no thyroid large, well-healed right-sided carotid endarterectomy scar Resp no retractions and no use of accessory muscles Resp Narrative: Diffuse scattered end expiratory wheeze and crackles, tachypnea but no signs of extremis Auscultation: crackles and wheezes; Negative for rhonchi Cardio regular rate, regular rhythm, S1 normal heart sound, S2 normal heart sound, no murmurs, no rub, no gallops and no clicks GI normal to inspection, nondistended, normoactive bowel sounds, soft to palpation and non-tender Extremity Extremity Narrative: 1+ pitting edema to knees bilaterally with no cyanosis or clubbing Skin skin turgor normal, no jaundice, no petechiae and no mottling Neuro oriented x3, CN's II-XII intact bilaterally and moves all extremities Neuro Narrative: Slight weakness that is residual from previous stroke on left side, slight sensory changes on left side from residual stroke Speech: speech normal Psych affect normal Psych Narrative: Eye contact is good, patient interacts normally, very pleasant Results Lab / Micro Data Attestation: I reviewed the patient's lab results. 12/31/22 01:17 12/31/22 01:17 Labs: Laboratory Results - last 24 hr 12/31/22 01:17: WBC 16.3 H, RBC 4.10 L, Hgb 12.4, Hct 38.3, MCV 93.4, MCH 30.2, MCHC 32.4, RDW Std Deviation 43.9, RDW Coeff of Elvie 12.9, Plt Count 335, MPV 10.2, Immature Gran % (Auto) 0.500, Neut % (Auto) 71.3 H, Lymph % (Auto) 20.8, Willacy % (Auto) 6.4, Eos % (Auto) 0.7, Baso % (Auto) 0.3, Absolute Neuts (auto) 11.7 H, Absolute Lymphs (auto) 3.39, Nucleated RBC % 0, Sodium 142, Potassium 4.5, Chloride 107, Carbon Dioxide 29.0, Anion Gap 6, BUN 36 H, Creatinine 1.29 H, Estim Creat Clear Calc 28.43, Est GFR (MDRD) Af Amer 52 L, Est GFR (MDRD) Non-Af 43 L, BUN/Creatinine Ratio 27.9 H, Glucose 148 H, Calcium 9.5, Troponin I High Sens 6, B-Natriuretic Peptide 394.7 H ABG Data ABG results: ABG 12/31/22 01:52 Specimen Type ART Sample Site R Brach pH 7.38 Bicarbonate Actual 26.2 H Total CO2 28 Base Excess 1 O2 Saturation 96 O2 % 45 ABG pCO2 44.6 ABG pO2 84 Terrence Test Positive Respiration Rate 12 O2 Delivery Device BiPAP POC PEEP 8 Clinical Comments BIPAP 14/8 R12 45% Rhythm Strip Rhythm Strip: Sinus Rhythm Rate: 63 Ectopy: None Assessment & Plan Assessment/Plan (1) Acute exacerbation of CHF (congestive heart failure): (2) Acute respiratory failure with hypoxia: (3) GALINA (acute kidney injury): (4) Bilateral lower extremity edema: (5) Elevated brain natriuretic peptide (BNP) level: PLAN: Plan Acute hypoxic respiratory failure etiology is currently unclear -Etiology is currently unclear however likely pneumonia versus heart failure -Initially felt this was likely heart failure however with leukocytosis and patient reporting a fever of 100.5 at home I think we need to do due diligence and treat her empirically for respiratory infection initially -Check sputum culture if patient able to produce -Check respiratory viral panel -Check rapid COVID -Blood cultures ordered in the emergency department -Start ceftriaxone and azithromycin -Lasix 40 mg IV 3 times daily -Add Nitropaste to help with getting her pressure down, diuresis and heart failure -Check echocardiogram -Most recent echo from July 2022 shows an EF of 55% with stage III diastolicdysfunction and right ventricular systolic pressure of 46 mmHg -Strict I's and O's -Fluid restrict to 1500 cc daily -Sodium restrict diet -Daily weights Bilateral lower extremity edema -BNP is elevated that is why I do favor heart failure overall -Continue Lasix as noted above -Bilateral lower extremity Layla bandages -Strict I's and O's - fluid restricted diet once able to eat -Sodium restricted diet once able to eat GALINA -Baseline serum creatinine appears to be between 0.7 and 0.95 -Serum creatinine presentation is 1.29. -Unclear if this elevation is related to being off the Starling curve versus dehydration -With edema will favor being off the Starling curve to start and continue Lasix but transition to IV from oral as noted above -Avoid nephrotoxins as able -Repeat BMP in a.m. COPD with history of tobacco abuse -Patient has had previous PFTs that are suggestive of COPD -Also had a CT in 2021 that showed moderate diffuse centrilobular pulmonary emphysema -Patient with remote history of tobacco abuse -Mild wheezing on exam however cannot exclude cardiac wheeze -Continue to monitor clinically -We will hold off on steroids as patient has documented allergy C. difficile infection -Continue Dificid -Patient without current diarrhea Paroxysmal atrial fibrillation -Currently in normal sinus rhythm -Continue flecainide -Can continue all -Continue apixaban Left-sided carotid artery aneurysm -Continue outpatient follow-up with Dr. Persaud at [facility] Chronic diastolic/right-sided heart failure -Previous echo as above -Repeat echocardiogram is pending Hypertension -Continue Lasix as IV as noted above -Continue home with goal -Continue home valsartan but monitor renal function History of stroke -Continue treatment for atrial fibrillation History of Moses's esophagus -Continue home famotidine -Continue home Carafate Chronic pain -Hold home Flexeril while patient required -As needed Tylenol History of DVT -Patient is fully anticoagulated with apixaban--> we will continue DVT prophylaxis -As above CODE Status -Full code Charges/Coding Visit Charges Inpatient E&M: 10961 Init Hosp L3 12/31/22 0310 <Electronically signed by Stephanie Scales DO> Cosigner Signature (if applicable): CC: Dr. Minerva Shaver MD; Dr. Stephanie Scales DO~ Signed [facility] Work Phone: 1(961) 880-223908-21-2023 Miscellaneous Notes* Telephone Encounter - Felicitas Prince LPN - 12/30/2022 6:13 PM EDT Patient notified. Felicitas Prince LPN * Telephone Encounter - Davin Rudd PA-C - 12/30/2022 5:39 PM EDT Please call patient and let her know [...] and water as frequently as possible. Davin Rudd PA-C * Telephone Encounter - TashaTamanna jacob Ma - 12/30/2022 4:33 PM EDT Patient stating having frequent BM's a total of 6 this morning. Stool is not diarrhea but very softand frequent. Patient also asking if she is contagious as she has several elderly neighbors. Pleaseadvise * Telephone Encounter - Dianna Ballard APRN.CNP - 12/30/2022 4:17 PM EDT Tamanna/Felicitas One of her stool samples is positive for c-diff but a different verification is negative. As she has been on antibiotics often over the last year I would recommend treatment if she is still having symptoms of multiple bouts of diarrhea and abdominal pain with vancomycin. Please call patient and getupdate on symptoms. Davin, As I am out of the office, would you be willing to prescribe treatment for c- diff if patient is still symptomatic? I only want to treat if necessary as she has had multiple concerns and med changes over the last year. Thank you Dianna Ballard APRN.ANITHA documented in this encounterKettering [facility]08-17-2023 Miscellaneous Notes* Telephone Encounter - Olga Lidia Lima RN - 12/26/2022 4:53 PM EDT Spoke with patient. Given message from provider's office. Patient verbalizes understanding. Olga Lidia Lima RN * Telephone Encounter - David Ortiz RN - 12/26/2022 4:50 PM EDT Called and left a voicemail for the Patient to call back and ask for a nurse to receive the providers message. David Ortiz, RN * Telephone Encounter - Dianna Ballard APRN.CNP - 12/26/2022 4:31 PM EDT Please let patient know that her CT scan did not show any acute concerns for her intense abdominal pain and bowel changes. We can discuss further at your follow up appointment. I am ordering stool samples to check for any infectious process. Thank you Dianna Ballard APRN.CNP documented in this encounterKettering Health [facility]08-17-2023 History of Present illness Narrative* Reef Sunday Coleman RT(R) - 12/26/2022 3:00 PM EDT Radiology Service Progress Note DATE OF SERVICE: [...] creatinine assay has traceable calibration to isotope dilution- mass spectrometry. Refer to KDIGO guidelines for clinical interpretation. In patients with unstable renal function, e.g. those with acute kidney injury, the eGFRmay not accurately reflect actual GFR. eGFR- Date Value Ref Range Status 03/12/2021 >60 Final P.O.C.T. RESULTS: POC done: Yes, See Lab Tab December 26, 2022 TREATMENT: N/A PERIPHERAL IV DATA: Ambulatory: A peripheral IV was started in the Left hand with a Angio cath: 22 gauge. RADIOLOGY DEPARTMENT: CT; Exam(s) Completed: Abdomen/Pelvis SIGNATURE: RT Sasha(R) PATIENT NAME: Elizabeth Persaud DATE: December 26, 2022 TIME: 3:32 PM documented in this encounterKettering [facility]08-17-2023 History of Present illness Narrative* Dianna Ballard APRN.[employer]ILERMA[employer] - 12/26/2022 12:49 PM EDT CC: Patient presents with: Recheck: Follow up, fever HPI Elizabeth Persaud is a 77 year old female who presents today for follow up on fever and sinusitis. Patient very complex with multiple issues over the last year including new onset A-fib, CVA, recurrent pneumonia, and CHF. Has been off of work and wants to go back but has been unable due to symptoms offatigue and other issues. All previous symptoms of sinusitis have improved but has new concerns. Temp in the evenings is now only in the 99s. Denies any cough, wheezing, sinus congestion, headaches, or chills. New concerns: Started 1 week ago with bowel changes. Stool at first was soft formed and black whichcolor was new on (is on iron treatment). [...] Reports also having lower abdomen cramping which improveswith passing gas with the blood and mucous [...] for reflux issues earlier this year and notedhe wanted her to follow up immediately for [...] surgery with implants- Dr Jacob Aguilar at [facility] PAST SURGICAL HISTORY OF 07/27/2015 cryo ablation, cardiac RPR UMBILICAL HRNA 5 YRS/> REDUCIBLE 07/17/2010 Hernia repair, umbilical >5yr [facility] Dr Manuel Hoover [facility] [...] use every other day for pain/inflammation. Take withfood. flecainide (TAMBOCOR) 100 mg tablet Take 1 [...] daily. (Patient not taking: No sig reported) [id number] ORAL Take by mouth. FAMILY HISTORY Problem Relation Age of Onset Hypertension Mother Stroke Mother Coronary Artery Disease Father other (wilsons disease) Brother other (VINCE'S DISEASE) Brother Liver dse, cirrhosis Social History [...] Tenderness to LLQ as well with grimacing butnot as severe and without guarding. No rigidity [...] diverticulitis versus other cause. If CT normal willdo stool studies and she is high risk [...] symptoms occur. Patient agreeable to treatment plan. Dianna Ballard APRN.CNP documented in this encounterKettering [facility]08-04-2023 Miscellaneous Notes* Telephone Encounter - Dianna Ballard APRN.CNP - 12/13/2022 12:07 PM EDT Agree. Patient needs to take lasix as ordered. Can review further at follow up. Thank you Dianna Ballard APRN.CNP * Telephone Encounter - Tamanna Cordova Ma - 12/13/2022 9:33 AM EDT Spoke with patient, only taking Lasix as needed. Informed patient o get in contact with Cardiology and make them aware of results and to start taking medication as ordered. * Telephone Encounter - Dianna Ballard APRN.CNP - 12/13/2022 8:55 AM EDT Slight increase in BNP which could indicate fluid overload. Has she been taking her lasix BID as ordered by cardiology? Also, covid and CXR were negative. Take care Dianna Ballard APRN.CNP documented in this encounterKettering [facility]08-03-2023 History of Present illness Narrative* Nikki Stoddard RT(R) - 12/12/2022 1:00 PM EDT Radiology Service Progress Note PATIENT NAME: Elizabeth Persaud DATE OF SERVICE: December 12, 2022 TIME: 12:54 PM PATIENT IDENTITY VERIFICATION COMPLETED USING TWO (2) IDENTIFIERS: Name and Date of confirmedby patient verbally. FALL SCREENING: Has the patient had 2 falls in the last year or 1 fall with injury or currently using an Ambulatory Assistive Device (Walker, Cane, Wheelchair, Crutches, etc.)? No PATIENT GENDER DATA: Female. status: : No status: NO. PATIENT RELEVANT IMPLANT DATA REVIEWED: Not Applicable RADIOLOGY DEPARTMENT: General X-ray: Exam(s) Completed: Chest X-Ray PERIPHERAL IV DATA: Not applicable SIGNED BY: RT Kd(Jamia) December 12, 2022 12:54 PM documented in this encounterKettering [facility]08-03-2023 History of Present illness Narrative* Dianna Ballard APRN.[employer]ILER[employer]ER [employer] - 12/12/2022 11:52 AM EDT CC: Patient presents with: Recheck: Follow up HPI Elizabeth Persaud is a 77 year old female who [...] some pain yesterday in her right ear. 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 Chronic nausea and slight epigastric pain. [...] surgery with implants- Dr Jacob Aguilar at [facility] PAST SURGICAL HISTORY OF 07/27/2015 cryo ablation, cardiac RPR UMBILICAL HRNA 5 YRS/> REDUCIBLE 07/17/2010 Hernia repair, umbilical >[address] [facility] [address] Manuel Hoover [facility] SKIN [...] use every other day for pain/inflammation. Take withfood. flecainide (TAMBOCOR) 100 mg tablet Take 1 [...] daily. (Patient not taking: No sig reported) [id number] ORAL Take by mouth. FAMILY HISTORY Problem Relation Age of Onset Hypertension Mother Stroke Mother Coronary Artery Disease Father other (wilsons disease) Brother other (VINCE'S DISEASE) Brother Liver dse, cirrhosis Social History [...] symptoms occur. Patient agreeable to treatment plan. Dianna Ballard APRN.CNP documented in this encounterKettering [facility]07-17-2023 Discharge summary Author Yeyo Wooten [facility] November 25, 2022 3:42pm Note Date/Time November 25, 2022 3:[address] [facility] Physical Therapy [facility] [address] [place] [address] [address] [place] [address] / REHABILITATION SERVICES DISCHARGE SUMMARY MR#: [id number] Acct: [id number] Name: ELIZABETH PERSAUD Rep #: [id number] : 1945 77 From: Yeyo Wooten PT, ATC Referring DrDino: PERLITA FLOWERS Status: REG RCR [facility] 03/12/18 Discharge Summary D/C summary: It has been my pleasure to treat ELIZABETH PERSAUD referred by Dr. Perlita Flowesr MD, with the diagnosis of L Le weakness and gait instability for a total of 17 visit(s). Discharge Date: Please see the following information for a summary of their discharge status. Subjective Subjective: My LBP was bad yesterday Pain LB: Pain Intensity (Out of 10): 2 Overall Improvement % Improvement: 70 Objective Objective/Function: MMT: B LE's are grossly 4+/5 to 5/5 throughout FGA: Pt is I with HEP Rx goals achieved Goals Goal 1:: Increase B LE strength x 1 grade to aid with stair negotiation Goal Progress: Progressing Goal 2:: Increase FGA scale x 5 points to aid with preventing future falls Goal 3:: I with HEP Plan Plan: Discharge to HEP D/C Information d/c sentence: If there are questions or concerns regarding this patient's physical therapy, please feel free to call me at [phone]. Thank you for the referral of thispatient. Sincerely, Yeyo Wooten, PT, ATC Balance/Gait/Functional tests Balance/Special Test Scores Functional Gait Assessment Score: 23 % Disability: 23.3400 Lower Extremity Functional Score: 51 30 Second Chair Rise Test Seconds: 13 <Electronically signed by Yeyo Wooten PT, ATC> 11/25/22 1542 CC: Dr. Minerva Shaver MD; PERLITA FLOWERS ~ [facility] Signed [facility] Work Phone: 1(472) 898-122806-22-2023 History of Present illness Narrative* Minerva Shaver MD - 10/31/2022 9:31 AM EDT Reason for Visit Patient presents with: Recheck: 2 month Elizabeth Persaud is a 77 year old female who [...] avoid salt, trying to eat more fruits andvegetables, exercises regularly No problem-specific Assessment & Plan [...] surgery with implants- Dr Jacob Aguilar at [facility] PAST SURGICAL HISTORY OF 07/27/2015 cryo ablation, cardiac RPR UMBILICAL HRNA 5 YRS/> REDUCIBLE 07/17/2010 Hernia repair, umbilical >5yr [facility] Dr Manuel Hoover [facility] SURGERY SKIN BIOPSY HX FAMILY HISTORY Problem Relation Age of Onset Hypertension Mother Stroke Mother Coronary Artery Disease Father other (wilsons disease) Brother other (VINCE'S DISEASE) Brother Liver dse, cirrhosis Social History [...] MULTIVITAMIN WITH MINERALS (ONE-A-DAY 50 PLUS ORAL) [id number] ORAL sucralfate (CARAFATE) 1 gram tablet CALCIUM [...] Cont all meds till she sees the title curator 2. Generalized arthritis - ICD9: 716.90, ICD10: [...] ICD10: I50.9 Stable - Continue current medications Minerva Shaver MD documented in this encounterKettering [facility]05-23-2023 History of Present illness Narrative* Zuleyma Persaud DO - 10/01/2022 12:00 AM EDT NAME: ELIZABETH PERSAUD CLINIC NO: [id number] DATE OF SERVICE: 10/01/2022 Subjective: Elizabeth is [...] of any arterial disease. She may benefit fromevaluation at [facility] for her chronic nonhealing wound. Recommend that she call and followup with us as needed. She also may benefit from a venous reflux testing as needed. She will call and follow up sooner with any concerns. Zuleyma Persaud D.O. KB/089 Audio #: [id number] Date Dictated: 10/01/2022 09:14:01 Date Typed: 10/05/2022 05:09:37 Date Revised: documented in this encounterKettering [facility]05-18-2023 History of Present illness Narrative* Nikki Stoddard RT(R) - 09/26/2022 10:50 AM EDT Radiology Service Progress Note PATIENT NAME: Elizabeth Persaud DATE OF SERVICE: September 26, 2022 TIME: 10:54 AM PATIENT IDENTITY VERIFICATION COMPLETED USING TWO (2) IDENTIFIERS: Name and Date of confirmedby patient verbally. FALL SCREENING: Has the patient had 2 falls in the last year or 1 fall with injury or currently using an Ambulatory Assistive Device (Walker, Cane, Wheelchair, Crutches, etc.)? No PATIENT GENDER DATA: Female. status: : No status: NO. PATIENT RELEVANT IMPLANT DATA REVIEWED: Not Applicable RADIOLOGY DEPARTMENT: General X-ray: Exam(s) Completed: Rib X-Ray: Left Spine X-Ray(s): Thoracic and Lumbar AP / LAT / L5-S1 PERIPHERAL IV DATA: Not applicable SIGNED BY: RT Kd(R) September 26, 2022 10:54 AM documented in this encounterKettering Health [facility]05-05-2023 Instructions* Patient Instructions* Perlita Flowers MD - 09/13/2022 11:16 AM EDT We will schedule physical therapy in [place]. Regular exercise and institute fall precautions. May [...] follow-up visit as needed. documented in this [id number] History of Present illness Narrative* Perlita Flowers MD - 09/13/2022 10:37 AM EDT Neurology Outpatient Consult [facility] [address] [place] [address] (phone)/[phone] (fax) Patient: Elizabeth Persaud Date of : 1945 Primary Care Provider: Minerva Shaver MD Assessment/Plan: Patient developed sudden onset [...] occasional forgetfulness but her cognitive evaluation appears unremarkableat this time. She also describes numbness and [...] Suggestion: We will schedule physical therapy in [place]. Regular exercise and institute fall precautions. May [...] cell) Chew apixaban (ELIQUIS) 5 mg Tab [id number] ORAL flecainide (TAMBOCOR) 100 MG tablet furosemide [...] 2022. She was admitted and evaluated in [facility]. Her brain MRIshowed no acute stroke. Her symptoms improved after 24 hours. She has been taking Eliquis for several years because of her atrial fibrillation. She also has history of DVT. She denies previous history of TIA or stroke. During that time, she also has symptoms of numbness on the left leg and a changeof her ambulation. She has history of scoliosis and has abnormal gait. She mention history of sciatica in the past and underwent back surgery. She also mention recent bowel prolapse and underwent repair. There was mention of occasional forgetfulness but she remains independent with activities of daily living. She denies any anxiety or depression. No hallucination or delusion. 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 No recent falls or injury. She does [...] clonus. Gait is limping. documented in this [id number] History of Present illness Narrative* Zuleyma Persaud DO - 09/03/2022 10:30 AM EDT Images from the original note were not included. [facility] [place] DEPARTMENT OF VASCULAR SURGERY OUTPATIENT VISIT DATE September 03, 2022 OUTPATIENT VISIT TYPE CONSULTATION SERVICE DATE: 09/03/2022 SERVICE TIME: 10:30 AM PRIMARY CARE PHYSICIAN: Minerva Shaver MD REFERRING PROVIDER: Zuleyma Persaud [facility] [address] [address] Consult requested for an opinion regarding the [...] surgery with implants- Dr Jacob Aguilar at [facility] PAST SURGICAL HISTORY OF 07/27/2015 cryo ablation, cardiac RPR UMBILICAL HRNA 5 YRS/> REDUCIBLE 07/17/2010 Hernia repair, umbilical >5yr [facility] Dr Manuel Hoover [facility] [...] Disease Father other (wilsons disease) Brother other (VINCE'S DISEASE) Brother Liver dse, cirrhosis MEDICATIONS: metoprolol [...] (ONE-A-DAY 50 PLUS ORAL) Take by mouth. [id number] ORAL Take by mouth. sucralfate (CARAFATE) 1 [...] recent labs Most recent imaging IMPRESSION: Ms. Persaud is a 77 year old female with claudication . PLAN and RECOMMENDATIONS: Recommend walking and exercise Will get PVRs with exercise Follow up after testing SIGNATURE: Zuleyma Persaud DO PATIENT NAME: Elizabeth Persaud DATE: September 03, 2022 TIME: 10:30 AM documented in this encounterKettering Health [facility]04-20-2023 History of Present illness Narrative* Minerva Shaver MD - 08/29/2022 8:52 AM EDT Reason for Visit Patient presents with: Recheck: 2 week CVA also 3 month follow up BP Elizabeth Persaud is a 77 year old female who presents here today for Above Complaints.. Health Maintenance SPIROMETRY ALPHA-1 ANTITRYPSIN DEFICIENCY SCREENING DTAP,TDAP,TD(1 - Tdap) COVID-19 VACCINE(4 - Booster for Moderna series) SHINGRIX VACCINE(3 of 3) ADVANCE DIRECTIVE DISCUSSION DEPRESSION ASSESSMENT HPI Elizabeth is a 75-year-old female with a past medical history of atrial fibrillation on anticoagulationwith Eliquis, has diastolic dysfunction, hypertension, reflux disease with Moses's esophagus, on proton pump inhibitors history of urinary surgery for enterocele and cystocele status post surgery.,Scoliosis and cervical degeneration with status post cervical [...] after her ER visit. She had seen Dianna my nurse practitioner vargas week for follow up. On reviewing her joints note and the hospital record below is what is noted Patient presented with left-sided weakness which was acute on August 08, 2022 she had a mid negativeMR I of the brain but her MR [...] diastolic dysfunction She has been to the title curator for 2 days ago and is back [...] nose has been green and would like totake medication for bacterial infection No problem-specific Assessment [...] surgery with implants- Dr Jacob Aguilar at [facility] PAST SURGICAL HISTORY OF 07/27/2015 cryo ablation, cardiac RPR UMBILICAL HRNA 5 YRS/> REDUCIBLE 07/17/2010 Hernia repair, umbilical >5yr [facility] Dr Manuel Hoover [facility] COSMETIC SURGERY SKIN BIOPSY HX FAMILY HISTORY Problem Relation Age of Onset Hypertension Mother Stroke Mother Coronary Artery Disease Father other (wilsons disease) Brother other (VINCE'S DISEASE) Brother Liver dse, cirrhosis Social History [...] ORAL) CALCIUM CARBONATE/VITAMIN D3 (VITAMIN D-3 ORAL) [id number] ORAL Review of Systems CONSTITUTIONAL: No fevers, [...] currently not taking stable at this point Minerva Shaver MD documented in this encounterKettering Health Dayton04-01-[address] Hall [facility] August 10, 2022 12:14pm Note Date/Time August 10, 2022 7:50 am [facility] Medical Records Department [address] [place] [address] Progress Note - Hospitalist 08/10/22 0746 MR#: [id number] Acct: [id number] Name: ELIZABETH PERSAUD Rep #:[id number] : 1945 77 From: Farhad Hall DO PCP: Dr. Minerva Shaver MD Status:ADM I N Location: [place] [address] Reason for Visit Reason for Visit: Diagnoses Cerebral infarction, unspecified (08/08/22) Bradycardia, unspecified (08/08/22) Weakness (08/08/22) Subjective Subjective Denies any new complaints Objective Data Objective Data Vital Signs: Vital Signs Temp Pulse Resp BP Pulse Ox O2 Del Method O2 Flow Rate 36.6 C 54 L 16 156/62 H 94 Room Air 2 08/10/22 06:30 08/10/22 06:30 08/10/22 06:30 08/10/22 06:30 08/10/22 06:30 08/10/22 06:30 08/10/22 02:30 Oxygen Flow Rate (L/min) 2 Oxygen Delivery Method Room Air Weight: 61.326 kg Body Mass Index (BMI) 25.5 Lab / Micro Data Result Diagrams: 08/08/22 16:20 08/09/22 03:49 Radiography Diagnostic Testing: Radiology Impression Brain MRI 08/09/22 09:00 IMPRESSION: No evidence for acute infarct. Very mild chronic involutional and white matter changes. 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 No evidence for large vessel occlusion the cachil dehe of Rodriguez region. Electronically Signed: Leonora Matthews MD at 11:01 EDT , Neck MRA 08/09/22 09:00 IMPRESSION: Motion artifact. No evidence for significant stenosis or occlusion in the vertebral or carotid arteries of the neck. Electronically Signed: Leonora Matthews MD at 11:19 EDT , Cervical Spine MRI 08/09/22 13:05 IMPRESSION: Prior cervical discectomy and fusion and mild spondylosis without significant change from February 01, 2021 Electronically Signed: Roz Patel MD at 6:49 EDT , Rhythm Strip Rhythm Strip: Sinus Rhythm Rate: 33 Ectopy: PAC(s) Physical Exam Const alert and no apparent distress HEENT head/scalp atraumatic and moist oral mucous membranes Resp normal respiratory effort, no retractions, no use of accessory muscles and clearto auscultation bilaterally Cardio regular rate, regular rhythm, S1 normal heart sound and S2 normal heart sound GI normal to inspection, nondistended, normoactive bowel sounds, soft to palpation,non-tender and non-distended Extremity normal to inspection Assessment & Plan Assessment/Plan (1) Left-sided weakness: PLAN: MRI brain negative MRA brain shos 2mm aneurysm left internal carotid artery MRI c-spine unremarkable for any acute process. Concerning that pt did indeed have a CVA given symptomatology. SOC teleneurology consulted. He did not appreciate any left facial droop nor upper extremity weakness (which are improved), but when he spoke to me that she indeed have these early, he seem dismissive of these concerns and would not say that she had a CVA (I even reminded him that she has afib). I feel the neurologist was anchored on the LLE and not open to discussing other possibilities given her known risk factors. Pt to follow up with neurology. Defer NCT/EMG, T and L spine MRIs as outpt unless new Sx arise. I will add ASA and atorvastatin (2) Bradycardia, sinus, persistent, severe: PLAN: Improved, but ongoing. Patient was supposed to be taking metoprolol succinate 50 twice a day but was taking 100 twice a day in addition to flecainide. Previously discussed with Dr. Ibarra, who recommends holding the metoprolol succinate and flecainide for now and then to resume it, assuming her heart rate is better, add metoprolol succinate 50 twice daily and flecainide 100 twice daily. Though the patient later stated that she took metoprolol succinate 50 BID, not 100 on JUL. So, will decrease to 50 daily when appropriate. Flecanide had been ordered, but not given given low heart rate. Continue to hold metoprolol succinate and flecanide. PLAN: Plan Other chronic conditions * Paroxysmal atrial fibrillation: Flecainide metoprolol being held for now. Continue with apixaban * Hypertension: Fair control at this time. We will hold off on the furosemide for now VTE prophylaxis: Not indicated as patient is already anticoagulated. Disposition: To be determined. pending HR as still bradycardic. Charges/Coding Visit Charges Inpatient E&M: 81328 Subs Hosp L2 08/10/22 1214 <Electronically signed by Farhad Hall DO> Cosigner Signature (if applicable): CC: ~ Signed [facility] Work Phone: 1([phone]) 624-907204-01-[address] Hall [facility] August 10, 2022 7:48am Note Date/Time August 10, 2022 7:[address] [facility] Medical Records Department [address] [place] [address] Telemedicine Confirmation Receipt 08/10/22 MR#: [id number] Acct: [id number] Name: ELIZABETH PERSAUD Rep #:[id number] : 1945 77 From: Farhad Hall DO PCP: Dr. Minerva Shaver MD Status:ADM I N SOC Telemed has confirmed receipt of a request for visit. This document confirms receipt of the order initiating the consult. To find the results of the consultation, please view the patient's reports for the scanned Telemed Consult. [facility] Work Phone: [phone]) 566-448203-31-[address] Hall [facility] August 09, 2022 1:05pm Note Date/Time August 09, 2022 7:5 3am [facility] Medical Records Department [address] [place] [address] Progress Note - Hospitalist 08/09/22 0752 MR#: [id number] Acct: [id number] Name: ELIZABETH PERSAUD Rep #:[id number] : 1945 77 From: Farhad Hall DO PCP: Dr. Minerva Shaver MD Status:ADM I N Location: [place] [address] Reason for Visit Reason for Visit: Diagnoses Cerebral infarction, unspecified (08/08/22) Bradycardia, unspecified (08/08/22) Subjective Subjective Still with LLE weakness. Objective Data Objective Data Vital Signs: Vital Signs Temp Pulse Resp BP Pulse Ox O2 Del Method O2 Flow Rate 36.6 C 45 L 18 132/74 H 96 Room Air 2 08/09/22 02:00 08/09/22 02:40 08/09/22 03:01 08/09/22 02:00 08/09/22 06:54 08/09/22 06:54 08/08/22 23:50 Oxygen Flow Rate (L/min) 2 Oxygen Delivery Method Room Air Weight: 61.326 kg Body Mass Index (BMI) 25.5 Lab / Micro Data Result Diagrams: 08/08/22 16:20 08/09/22 03:49 Labs: Laboratory Results - last 24 hr 08/08/22 16:20: WBC 8.7, RBC 4.29, Hgb 12.6, Hct 38.9, MCV 90.7, MCH 29.4, MCHC 32.4, RDW Std Deviation 45.7 H, RDW Coeff of Elvie 14.0, Plt Count 314, MPV 10.5, Immature Gran % (Auto) 0.300, Neut % (Auto) 59.9, Lymph % (Auto) 28.7, Willacy % (Auto) 9.6, Eos % (Auto) 1.2, Baso % (Auto) 0.3, Absolute Neuts (auto) 5.2, Absolute Lymphs (auto) 2.49, Nucleated RBC % 0 08/08/22 16:20: PT 17.8 H, INR 1.5, APTT 34.7 08/08/22 16:20: Sodium 140, Potassium 4.2, Chloride 104, Carbon Dioxide 27.0, Anion Gap 9, BUN 35 H, Creatinine 1.24 H, Estim Creat Clear Calc 29.58, Est GFR (MDRD) Af Amer 54 L, Est GFR (MDRD) Non-Af 45 L, BUN/Creatinine Ratio 28.2 H, Glucose 103, Calcium 9.9, Troponin I High Sens 8 08/08/22 16:20: Total Bilirubin 0.40, Direct Bilirubin 0.16, AST 130 H, ALT 187 H, Alkaline Phosphatase 124 H, Total Protein 7.1, Albumin 3.7, Globulin 3.4 08/08/22 19:30: Troponin I High Sens 9 08/09/22 03:49: Sodium 143, Potassium 3.8, Chloride 110 H, Carbon Dioxide 28.0, Anion Gap 5, BUN 34 H, Creatinine 0.92, Estim Creat Clear Calc 39.87, Est GFR (MDRD) Af Amer 77, Est GFR (MDRD) Non-Af 63, BUN/Creatinine Ratio 37.0 H, Glucose 84, Calcium 8.7, Triglycerides 54, Cholesterol 132, LDL Cholesterol 71, VLDL Cholesterol 11, HDL Cholesterol 50 Radiography Diagnostic Testing: Radiology Impression Brain CT 08/08/22 16:21 IMPRESSION: There are no acute findings. Chronic involutional changes of the brain. Electronically Signed: Yeyo Moran MD at 17:02 EDT , ADDENDUM: 08/08/22 1706 IMPRESSION: There are no acute findings. Chronic involutional changes of the brain. N.B. : The above Results were Read Back by Yeyo Moran MD to Wilian Dempsey MD, and understanding confirmed on 08/08/2022 17:03:01 (ET). Electronically Signed: Yeyo Moran MD at 17:02 EDT , Chest X-Ray 08/08/22 16:42 IMPRESSION: There are no acute findings. Electronically Signed: Yeyo Moran MD at 17:03 EDT , Rhythm Strip Rhythm Strip: Sinus Rhythm Rate: 33 Ectopy: PAC(s) Physical Exam Const alert and no apparent distress HEENT head/scalp atraumatic and moist oral mucous membranes Eyes PERRL and EOMs intact bilaterally Neck no lymphadenopathy Resp normal respiratory effort, no retractions and no use of accessory muscles Cardio regular rate, regular rhythm, S1 normal heart sound and S2 normal heart sound GI normal to inspection, nondistended, normoactive bowel sounds Neuro Neuro Narrative: left sided weakness. left facial droop. Assessment & Plan Assessment/Plan (1) Left-sided weakness: PLAN: MRI brain negative MRA brain shos 2mm aneurysm left internal carotid artery Check MRI c-spine (2) Bradycardia, sinus, persistent, severe: PLAN: Improved Patient was supposed to be taking metoprolol succinate 50 twice a day but was taking 100 twice a day in addition to flecainide. Discussed with Dr. Ibarra, who recommends holding the metoprolol succinate and flecainide for now and then to resume it, assuming her heart rate is better, addmetoprolol succinate 50 twice daily and flecainide 100 twice daily. Patient states she take metoprolol succinate 50 BID, not 100 on JUL. So, will decrease to 50 daily when appropriate. PLAN: Plan Other chronic conditions * Paroxysmal atrial fibrillation: Flecainide metoprolol being held for now. Continue with apixaban * Hypertension: Fair control at this time. We will hold off on the furosemide for now VTE prophylaxis: Not indicated as patient is already anticoagulated. Disposition: To be determined. Based on the stroke work-up as well as therapy evaluations. Charges/Coding Visit Charges Inpatient E&M: 65574 Subs Hosp L2 08/09/22 1305 <Electronically signed by Farhad Hall DO> Cosigner Signature (if applicable): CC: ~ Signed [facility] Work Phone: [phone]) [phone] Miscellaneous Notes* Telephone Encounter - Dianna Ballard APRN.CNP - 08/09/2022 7:59 AM EDT Noted Dianna Ballard APRN.CNP * Telephone Encounter - Olga Lidia Lima RN - 08/08/2022 7:45 PM EDT Patient did go to [facility] ER. Olga Lidia Lima RN * Telephone Encounter - Olga Lidia Lima RN - 08/08/2022 2:09 PM EDT Reviewed triage protocol guidelines with patient. Patient [...] ER and says I'll call another doctor instead. Olga Lidia Lima RN Reason for Disposition [...] nausea 8. : NO Protocols used: Neurologic [id number] [facility]23 History and physical note Author Dr. Hall [facility] August 08, 2022 6:17pm Note Date/Time August 08, 2022 6:1 7pm [facility] Medical Records Department [address] [place] [address] H&P Exam - Hospitalist 08/08/22 1810 MR#: [id number] Acct: [id number] Name: ELIZABETH PERSAUD Rep #:[id number] : 1945 77 From: Farhad Hall DO PCP: Dr. Minerva Shaver MD Status:ADM I N Location: [place] [address] HPI - General General Date of Admission: 08/08/22 Date of Service: 08/08/22 Chief Complaint: left sided weakness HPI Narrative ELIZABETH PERSAUD, is a 77 F who presents with left-sided weakness. Symptoms began about 2 weeks ago. Patient states that she had seen her primary care doctor andis unclear if the patient even brought this issue up but just was described as not to me. She presented because she was having some facial issues which was new. So she was directed to the emergency room. In the emergency room, patientwas noted to have left-sided weakness left facial droop. Patient underwent headCT that showed no acute process. Also while she was there should her heart ratewas noted to be in the 30s. Patient has been taking metoprolol succinate 100 twice daily in addition to her flecainide. Appears from the last cardiology note that she is supposed be taking metoprolol succinate 50 twice daily. Patient does state that she has been feeling dizzy. Since being in the emergency room, patient's heart rate has improved into the 50s. [facility] Medical History Abnormal bruising Acute cholecystitis Arthritis Atrial fibrillation Atrial fibrillation with RVR (10/31/18) Moses's esophagus Calculus of kidney Cancer Cardiomyopathy in other diseases classified elsewhere Carpal tunnel syndrome Chest pain Chronic diastolic (congestive) heart failure Chronic neck and back pain Diarrhea Difficulty balancing when standing GERD (gastroesophageal reflux disease) Heart disease History of DVT (deep vein thrombosis) Hypertension Non-rheumatic tricuspid valve insufficiency Nonrheumatic aortic valve stenosis Panlobular emphysema Paroxysmal atrial fibrillation Rotator cuff tear Scoliosis of cervical spine Shoulder pain SOB (shortness of breath) Tendonitis of shoulder, right Tubular adenoma of colon URI (upper respiratory infection) Home Medications multivitamin with folic acid 400 mcg tablet 1 tab PO DAILY supplement 03/15/13 [History Last Taken 10/31/18 07:00] melatonin 3 mg capsule 3 mg PO HS 01/19/21 [History Last Taken Unknown] calcium carbonate 500 mg calcium (1,250 mg) tablet 500 mg PO DAILY 06/25/21 [History Last Taken Unknown] diclofenac sodium 75 mg tablet,delayed release 75 mg PO .COMPLEX 06/25/21 [History Last Taken Unknown] furosemide 40 mg tablet 40 mg PO DAILY #90 tabs 08/31/21 [Rx Last Taken Unknown] sucralfate 1 gram tablet 1 g PO QACHS 05/07/22 [History Last Taken Unknown] apixaban 5 mg tablet 5 mg PO BID #180 tabs 06/14/22 [Rx Last Taken 08/05/22] valsartan 40 mg tablet 40 mg PO DAILY pt only taking 1/2 pill, ord by Dr. Shaver 07/11/22 [History Last Taken Unknown] cyclobenzaprine 10 mg tablet 10 mg PO HS PRN muscle spasm 07/25/22 [History Last Taken Unknown] famotidine 20 mg tablet 20 mg PO BID 07/25/22 [History Last Taken Unknown] potassium chloride 20 mEq tablet,extended release(part/cryst) 20 meq PO DAILY #180 tabs 07/25/22 [Rx Last Taken Unknown] metoprolol succinate 50 mg tablet,extended release 24 hr 100 mg PO BID #30 tabs 07/29/22 [Rx Last Taken 08/05/22] flecainide 100 mg tablet 150 mg PO BID #90 tabs 08/05/22 [Rx Last Taken Unknown] Allergy/AdvReac Type Severity Reaction Status Date / Time etodolac Allergy Intermediate Other Verified 08/08/22 15:53 diltiazem HCl [From Cardizem] Allergy Swelling Verified 08/08/22 15:53 of face and neck naproxen Allergy Swelling Verified 08/08/22 15:53 (whole body) prednisone Allergy Other Verified 08/08/22 15:53 amiodarone AdvReac Severe Severe Verified 08/08/22 15:53 dyspnea after taking PO Amiodarone adhesive AdvReac Rash Verified 08/08/22 15:53 albuterol AdvReac Other Verified 08/08/22 15:53 codeine AdvReac Vomiting Verified 08/08/22 15:53 hydrocodone bitartrate AdvReac Vomiting Verified 08/08/22 15:53 [From Vicodin] morphine AdvReac Vomiting Verified 08/08/22 15:53 Family History Sister Afib Father CAD (coronary artery disease) Brother CVA (cerebral vascular accident) Mother No problems noted. Sister No problems noted. Brother Wilsons disease Brother Wilsons disease Surgical History H/O hernia repair H/O neck surgery History of cardioversion (11/23/18) History of left heart catheterization (03/15/13) History of radiofrequency ablation procedure for cardiac arrhythmia (07/27/15) Hx of cholecystectomy Hx of fusion of cervical spine ovarian surgery Social History Smoking Status: Former smoker alcohol intake: never substance use type: does not use caffeine: Yes Type: coffee Number of servings: 1 what type of physical activity do you participate in: walking frequency: daily seatbelt use: always do you feel safe at home: Yes ROS ROS Narrative Was have some dizziness with gaze. All review of systems were negative except as mentioned above in the history of present illness and the other review of systems. Vital Signs Vital Signs Vital Signs: 08/08/22 15:53 08/08/22 16:23 08/08/22 16:25 Temperature 36.1 C L Temperature Source Temporal Pulse Rate 45 L 42 L 51 L Respiratory Rate 14 20 H 17 Blood Pressure 151/89 H 169/66 H 169/66 H Blood Pressure Mean 109 100 100 Pulse Ox 92 96 94 Oxygen Delivery Method Room Air Room Air Room Air 08/08/22 16:26 08/08/22 16:29 08/08/22 16:51 Temperature Temperature Source Pulse Rate 38 L 54 L Respiratory Rate 17 Blood Pressure 160/74 H Blood Pressure Mean 102 Pulse Ox 96 Oxygen Delivery Method Room Air Room Air 08/08/22 17:21 08/08/22 17:39 Temperature 36.8 C Temperature Source Temporal Pulse Rate 59 L 49 L Respiratory Rate 15 19 H Blood Pressure 154/78 H 153/78 H Blood Pressure Mean 103 103 Pulse Ox 97 96 Oxygen Delivery Method Room Air Room Air Weight Weight: 61.5 kg Body Mass Index (BMI) 25.6 Physical Exam Narrative - Physical Exam General: Alert, Oriented x3, Cooperative HEENT: Atraumatic, PERRLA, EOMI, Normocephalic. Left facial droop Oral: Moist Mucosa, No Gingival or Mucosal Lesions/ Ulcerations Neck: Supple, No JVD, Negative Carotid Bruits Lungs: Clear to auscultation, Normal air movement Cardiovascular: Regular rate, Normal S1, Normal S2, No murmurs Abdomen: Bowel Sounds Present, Soft, Non Tender, Non-Distended, No Hepato-splenomegaly Extremities: No clubbing, No cyanosis, No edema, Capillary Refill Less than 3 Seconds Skin: No rashes, No breakdown Musculoskeletal: No Tenderness to Palpation of Joints or Extremities Neurological: Cranial nerves II through XII grossly intact with exception of left facial droop. Muscle strength is 5-5 in the right upper and right lower extremity and 4-5 in the left upper and left lower extremity. Patient does havesome ataxia that can be explained by the weakness that she has on that side. Psych/Mental Status: Normal Affect, Appropriate Results Lab / Micro Data Attestation: I reviewed the patient's lab results. Result Diagrams: 08/08/22 16:20 08/08/22 16:20 Labs: Laboratory Results - last 24 hr 08/08/22 16:20: WBC 8.7, RBC 4.29, Hgb 12.6, Hct 38.9, MCV 90.7, MCH 29.4, MCHC 32.4, RDW Std Deviation 45.7 H, RDW Coeff of Elvie 14.0, Plt Count 314, MPV 10.5, Immature Gran % (Auto) 0.300, Neut % (Auto) 59.9, Lymph % (Auto) 28.7, Willacy % (Auto) 9.6, Eos % (Auto) 1.2, Baso % (Auto) 0.3, Absolute Neuts (auto) 5.2, Absolute Lymphs (auto) 2.49, Nucleated RBC % 0 08/08/22 16:20: PT 17.8 H, INR 1.5, APTT 34.7 08/08/22 16:20: Sodium 140, Potassium 4.2, Chloride 104, Carbon Dioxide 27.0, Anion Gap 9, BUN 35 H, Creatinine 1.24 H, Estim Creat Clear Calc 29.58, Est GFR (MDRD) Af Amer 54 L, Est GFR (MDRD) Non-Af 45 L, BUN/Creatinine Ratio 28.2 H, Glucose 103, Calcium 9.9, Troponin I High Sens 8 08/08/22 16:20: Total Bilirubin 0.40, Direct Bilirubin 0.16, AST 130 H, ALT 187 H, Alkaline Phosphatase 124 H, Total Protein 7.1, Albumin 3.7, Globulin 3.4 Rhythm Strip Rhythm Strip: Sinus Rhythm Rate: 33 Ectopy: PAC(s) EKG Initial EKG: Attestation: I personally reviewed and interpreted this EKG as follows: Prior EKG tracings: available for review EKG Rhythm Intrepretation: Sinus Bradycardia Radiology Impression Brain CT 08/08/22 16:21 IMPRESSION: There are no acute findings. Chronic involutional changes of the brain. Electronically Signed: Yeyo Moran MD at 17:02 EDT , ADDENDUM: 08/08/22 1709 IMPRESSION: There are no acute findings. Chronic involutional changes of the brain. N.B. : The above Results were Read Back by Yeyo Moran MD to Wilian Dempsey MD, and understanding confirmed on 08/08/2022 17:03:01 (ET). Electronically Signed: Yeyo Moran MD at 17:02 EDT , Chest X-Ray 08/08/22 16:42 IMPRESSION: There are no acute findings. Electronically Signed: Yeyo Moran MD at 17:03 EDT Reading Location ID and State: [facility] / [place] , Service support , Assessment & Plan Assessment/Plan (1) Acute stroke due to ischemia: PLAN: Onset was roughly 2 weeks ago according the patient. Despite that, patient's CAT scan did not show any acute process. Additional stroke work-up: MRI of the brain, 2D echocardiogram, MRA of the head and neck. Physical, occupational and speech therapy Check fasting lipid panel (2) Bradycardia, sinus, persistent, severe: PLAN: Patient was supposed to be taking metoprolol succinate 50 twice a day but was taking 100 twice a day in addition to flecainide. Discussed with Dr. Ibarra, who recommends holding the metoprolol succinate and flecainide for now and then to resume it, assuming her heart rate is better, addmetoprolol succinate 50 twice daily and flecainide 100 twice daily. PLAN: Plan Other chronic conditions * Paroxysmal atrial fibrillation: Flecainide metoprolol being held for now. Continue with apixaban * Hypertension: Fair control at this time. We will hold off on the furosemide for now VTE prophylaxis: Not indicated as patient is already anticoagulated. Disposition: To be determined. Based on the stroke work-up as well as therapy evaluations. Charges/Coding Visit Charges Inpatient E&M: 99729 Init Hosp L3 08/08/22 1817 <Electronically signed by Farhad Hall DO> Cosigner Signature (if applicable): CC: Dr. Minerva Shaver MD; Dr. Farhad Hall DO~ Signed [facility] Work Phone: 1([phone]) 154-229003-30-[address] Dempsey [facility] August 08, 2022 5:18pm Note Date/Time August 08, 2022 4:2 7pm [facility] Medical Records Department [address] [place] [address] Emergency Department Summary 08/08/22 MR#: [id number] Acct: [id number] Name: ELIZABETH PERSAUD Rep #:[id number] : 1945 77 From: Wilian Dempsey MD PCP: Dr. Minerva Shaver MD Status:REG E R Location: ED HPI History of Present Illness Chief Complaint: Neuro S/Sx Detail of Chief Complaint: Strokelike symptoms and pericardiaTriage nurse Informant: patient, friend and other Onset/Context/Timing Onset: - (Neuro symptoms may have started greater than a week ago. She also complains of cardiac symptoms.) Context: Sudden Onset Timing: Continuous Quality: Neuro symptoms are continuous and see HPI narrative for detail. Cardiac sy Location: Neuro and cardiovascular Current Severity: Severe Maximum Severity: Severe Worsened by: Dyspnea on exertion, orthopnea and altered sensation weakness left side Relieved by: Nothing Associated Symptoms Associated Symptoms: Orthostatics Narrative Narrative: Patient is a 77-year-old woman with history of and on Eliquis stage III diastolic dysfunction with a preserved ejection fraction of 55%. There is mild focal aortic valve calcification noted. Pulmonary artery systolic pressure is 46. This information was obtained from echocardiogram interpreted by Dr. Maxim Ibarra on August 06, 2022. Patient presents because of facial droop, altered sensation and weakness left side. She states the weakness in her left upper extremity has improved. She was unaware that she had a left facial droop. She thought the droop was on the right side. She was questioned regarding compliance with her anticoagulant, Eliquis. She states she has not missed a dose. She denies headache. She denies recent head trauma. She denies ocular, visual auditory symptoms. She denies trouble with speech or swallowing. She denies problems with coordination or balance. She denies black or maroon-colored stool. She denies increased orthopnea. She denies PND. She denies chest comfort. Prior similar symptoms: No Recent Illness/Hospitalization: No PFSH PFS Medical History Abnormal bruising Acute cholecystitis Arthritis Atrial fibrillation Atrial fibrillation with RVR (10/31/18) Moses's esophagus Calculus of kidney Cancer Cardiomyopathy in other diseases classified elsewhere Carpal tunnel syndrome Chest pain Chronic diastolic (congestive) heart failure Chronic neck and back pain Diarrhea Difficulty balancing when standing GERD (gastroesophageal reflux disease) Heart disease History of DVT (deep vein thrombosis) Hypertension Non-rheumatic tricuspid valve insufficiency Nonrheumatic aortic valve stenosis Panlobular emphysema Paroxysmal atrial fibrillation Rotator cuff tear Scoliosis of cervical spine Shoulder pain SOB (shortness of breath) Tendonitis of shoulder, right Tubular adenoma of colon URI (upper respiratory infection) Home Medications multivitamin with folic acid 400 mcg tablet 1 tab PO DAILY supplement 03/15/13 [History Last Taken 10/31/18 07:00] melatonin 3 mg capsule 3 mg PO HS 01/19/21 [History Last Taken Unknown] calcium carbonate 500 mg calcium (1,250 mg) tablet 500 mg PO DAILY 06/25/21 [History Last Taken Unknown] diclofenac sodium 75 mg tablet,delayed release 75 mg PO .COMPLEX 06/25/21 [History Last Taken Unknown] furosemide 40 mg tablet 40 mg PO DAILY #90 tabs 08/31/21 [Rx Last Taken Unknown] sucralfate 1 gram tablet 1 g PO QACHS 05/07/22 [History Last Taken Unknown] apixaban 5 mg tablet 5 mg PO BID #180 tabs 06/14/22 [Rx Last Taken 08/05/22] valsartan 40 mg tablet 40 mg PO DAILY pt only taking 1/2 pill, ord by Dr. Shaver 07/11/22 [History Last Taken Unknown] cyclobenzaprine 10 mg tablet 10 mg PO HS PRN muscle spasm 07/25/22 [History Last Taken Unknown] famotidine 20 mg tablet 20 mg PO BID 07/25/22 [History Last Taken Unknown] potassium chloride 20 mEq tablet,extended release(part/cryst) 20 meq PO DAILY #180 tabs 07/25/22 [Rx Last Taken Unknown] metoprolol succinate 50 mg tablet,extended release 24 hr 100 mg PO BID #30 tabs 07/29/22 [Rx Last Taken 08/05/22] flecainide 100 mg tablet 150 mg PO BID #90 tabs 08/05/22 [Rx Last Taken Unknown] Allergy/AdvReac Type Severity Reaction Status Date / Time etodolac Allergy Intermediate Other Verified 08/08/22 15:53 diltiazem HCl [From Cardizem] Allergy Swelling Verified 08/08/22 15:53 of face and neck naproxen Allergy Swelling Verified 08/08/22 15:53 (whole body) prednisone Allergy Other Verified 08/08/22 15:53 amiodarone AdvReac Severe Severe Verified 08/08/22 15:53 dyspnea after taking PO Amiodarone adhesive AdvReac Rash Verified 08/08/22 15:53 albuterol AdvReac Other Verified 08/08/22 15:53 codeine AdvReac Vomiting Verified 08/08/22 15:53 hydrocodone bitartrate AdvReac Vomiting Verified 08/08/22 15:53 [From Vicodin] morphine AdvReac Vomiting Verified 08/08/22 15:53 Family History Sister Afib Father CAD (coronary artery disease) Brother CVA (cerebral vascular accident) Mother No problems noted. Sister No problems noted. Brother Wilsons disease Brother Wilsons disease Surgical History H/O hernia repair H/O neck surgery History of cardioversion (11/23/18) History of left heart catheterization (03/15/13) History of radiofrequency ablation procedure for cardiac arrhythmia (07/27/15) Hx of cholecystectomy Hx of fusion of cervical spine ovarian surgery Social History Smoking Status: Former smoker alcohol intake: never substance use type: does not use caffeine: Yes Type: coffee Number of servings: 1 what type of physical activity do you participate in: walking frequency: daily seatbelt use: always do you feel safe at home: Yes ROS ROS ED Constitutional Constitutional ED: Denies chills, fever(s) or subjective Eyes Eyes: Denies blurry vision, change in vision or diplopia ENT ENT ED: Denies ear pain, rhinorrhea or sore throat Cardiovascular Cardiovascular: Reports orthopnea and other Details: Orthostatic hypotension ; Denies chest pain, palpitations, paroxysmal nocturnal dyspnea or racing heartbeat Respiratory/Chest Respiratory/Chest: Reports dyspnea, dyspnea on exertion and orthopnea; Denies cough or paroxysmal nocturnal dyspnea Gastrointestinal Gastrointestinal: Denies abdominal pain, diarrhea, melena, nausea or vomiting Genitourinary Genitourinary ED: Denies dysuria, hematuria or urinary frequency Musculoskeletal Musculoskeletal: Denies arthralgias, back pain, myalgias or neck pain Integumentary Denies abscess, Abrasions or rash Neurologic Neurologic: Reports paresthesias and weakness; Denies headache(s) Endocrine Endocrinology: Denies cold intolerance or heat intolerance Hematologic/Lymphatic Hematologic/Lymphatic: Reports systems reviewed and no addt'l complaints, exceptas documented EXAM Physical Exam Narrative Exam Narrative: NIH stroke scale General transfer line: 4 facial palsy one-point 6 left leg one-point 8 sensory one-point Total score 3 Const Vital Signs: 08/08/22 15:53 08/08/22 16:23 08/08/22 16:25 Temperature 97 F L Temperature Source Temporal Pulse Rate 45 L 42 L 51 L Respiratory Rate 14 20 H 17 Blood Pressure 151/89 H 169/66 H 169/66 H Blood Pressure Mean 109 100 100 Pulse Ox 92 96 94 Oxygen Delivery Method Room Air Room Air Room Air 08/08/22 16:26 08/08/22 16:29 Temperature Temperature Source Pulse Rate 38 L Respiratory Rate Blood Pressure Blood Pressure Mean Pulse Ox Oxygen Delivery Method Room Air Positive well nourished and well developed Constitutional Narrative: Patient appears pale. General Appearance ED: well developed and pallor; Negative for cyanotic or NAD HEENT Reports moist mucous membranes HEENT Narrative: Head is atraumatic normocephalic. There is no clinical findings of basilar skull fracture or head trauma. There is no septal deviation hematoma. Posterior pharynx unremarkable. There is no deviation of the tongue with protrusion. Eyes PERRL and EOMs intact bilaterally Eyes Narrative: There is no nystagmus. General Eye ED: Negative for pale conjunctiva or scleral icterus Neck no lymphadenopathy, supple and no JVD Neck Narrative: Scar noted anterior right neck due to cervical spine surgery. Chest Wall inspection of chest normal and palpation of chest normal Resp No normal respiratory effort and No clear to auscultation bilaterally Auscultation: rales bilateral base Cardio regular rhythm, S1 normal heart sound, S2 normal heart sound and no murmurs Rate: bradycardia GI normal to inspection, nondistended, normoactive bowel sounds, non-tender, non-distended and no masses; Negative for hepatosplenomegaly Back/Spine no CVA tenderness Thoracic Spine / Upper Back: Negative for thoracic spinal tenderness Lumbar Spine / Lower Back: Negative for lumbar spinal tenderness Extremity General Extremety ED: Yes edema General Extremity: edema Neuro oriented x3, CN's II-XII intact bilaterally and No no sensory deficits noted Neuro Narrative: Altered sensation left side of face, left upper and left lower extremity. Weakness noted left lower extremity. Patient has a facial droop on the left. Sensorium / Orientation: alert Motor Exam: Negative for strength 5/5 throughout Skin no rashes or lesions noted, no wounds and No skin turgor normal General Skin Exam: jaundice and pallor; Negative for elasticity normal MDM MDM MDM Narrative Medical decision making narrative: Call was placed to Dr. Esteves since he recently saw patient. He informed that she is on flecainide 100 mg twice daily and metoprolol 100 mg twice daily. Recommendation since she is hemodynamically stable is hold metoprolol for this time. Patient has severe bradycardia. She is hemodynamically stable. Pacemaker pads were applied and resuscitation cart brought to room. She is also had a stroke and will need a stroke work-up. Appropriate orders were initiated for the stroke work-up. Since patient appears jaundiced and endorses dark-colored urine hepatic profile was added to the stroke order set. Chest x-ray is obtained since patient appears dyspneic and has bibasilar rales. History & Record Review Discussion w/independent historian: Patient, Friend and Other (National Business Director, Dr.Cyril Ibarra) Additional record(s) reviewed:: Prior inpatient record, Prior outpatient record and Prior labs Lab Data Attestation: I reviewed the patient's lab results. Lab results narrative: CBC is unremarkable. Coags normal. Electrolyte panel is unremarkable. Hepaticpanel is pending. Labs: Laboratory Results - last 24 hr 08/08/22 08/08/22 08/08/22 16:20 16:20 16:20 WBC 8.7 RBC 4.29 Hgb 12.6 Hct 38.9 MCV 90.7 MCH 29.4 MCHC 32.4 RDW Std Deviation 45.7 H RDW Coeff of Elvie 14.0 Plt Count 314 MPV 10.5 Immature Gran % (Auto) 0.300 Neut % (Auto) 59.9 Lymph % (Auto) 28.7 Willacy % (Auto) 9.6 Eos % (Auto) 1.2 Baso % (Auto) 0.3 Absolute Neuts (auto) 5.2 Absolute Lymphs (auto) 2.49 Nucleated RBC % 0 PT 17.8 H INR 1.5 APTT 34.7 Sodium 140 Potassium 4.2 Chloride 104 Carbon Dioxide 27.0 Anion Gap 9 BUN 35 H Creatinine 1.24 H Estim Creat Clear Calc 29.58 Est GFR (MDRD) Af Amer 54 L Est GFR (MDRD) Non-Af 45 L BUN/Creatinine Ratio 28.2 H Glucose 103 Calcium 9.9 Troponin I High Sens 8 Radiography Chest X-Ray - ED: 1 View and Read by ED Physician (Chest x-ray reveals chronic changes. There is no obscuring of the cardiac silhouette. There is no evidenceof effusion or heart failure. Ostia structures are unremarkable. This was independently reviewed interpreted by me) Diagnostic Testing: Clinical Impression(s) from Imaging Studies Brain CT 08/08/22 16:21 IMPRESSION: There are no acute findings. Chronic involutional changes of the brain. Electronically Signed: Yeyo Moran MD at 17:02 EDT , ADDENDUM: 08/08/22 1709 IMPRESSION: There are no acute findings. Chronic involutional changes of the brain. N.B. : The above Results were Read Back by Yeyo Moran MD to Wilian Dempsey MD, and understanding confirmed on 08/08/2022 17:03:01 (ET). Electronically Signed: Yeyo Moran MD at 17:02 EDT , Chest X-Ray 08/08/22 16:42 IMPRESSION: There are no acute findings. Electronically Signed: Yeyo Moran MD at 17:03 EDT , CT of the head without contrast reveals no evidence of subdural, epidural, subarachnoid hemorrhage or intraparenchymal hemorrhage. There is no obvious stroke noted. Awaiting formal read by radiologist. Rhythm Strip Rhythm Strip: Sinus Rhythm Rate: 33 Ectopy: PAC(s) EKG Initial EKG: Attestation: I personally reviewed and interpreted this EKG as follows: Interpretation: Sinus Bradycardia (Ventricular rate is 33. There is premature supraventricular complexes noted. MA interval is 168 ms. Cures duration 118 ms. QT duration 474 ms. Casper to left. There is evidence of an RRprime in V1 and V2 consistent with a incomplete right bundle branch block. There is no civic changes noted.) Management Discussion w/another healthcare provider: Hospitalist and Component Overhaul Operator Critical Care Time Critical Care Time: Yes Critical care time (excluding procedures): 30-74 minutes (37 minutes), Includingtime spent: (History, physical, documentation, review of outside records and interpretation of laboratory results initiation of therapy), Discussing w/Patient &/or Family/Pole Climber, Discussing w/Consultants (Cardiology, hospitalist), Arranging Admission or Transfer and Performing Direct Patient Careat Bedside Discharge Plan Dx/Rx/DC Orders Clinical Impression: Bradycardia, sinus, persistent, severe, 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, Chronic diastolic (congestive) heart failure, Acute stroke due to ischemia Disposition Disposition: Acute Care Hospital [facility] What to do if you have Problems For any increased pain, shortness of breath, bleeding, nausea or vomiting, chestpain, or any unexpected problems, contact your Primary Care Provider. Call [facility] ([phone]) or report to the closest Emergency Room. Call 911 if necessary. 08/08/22 5966 <Electronically signed by Wilian Dempsey MD> Cosigner Signature (if applicable): CC: Dr. Minerva Shaver MD ~ Signed [facility] Work Phone: [phone] 647-583203-30-[address] Dempsey [facility] August 08, 2022 5:18pm Note Date/Time August 08, 2022 4:2 7pm [facility] Medical Records Department [address] [place] [address] Emergency Department Summary 08/08/22 MR#: [id number] Acct: [id number] Name: ELIZABETH PERSAUD Rep #:[id number] : 1945 77 From: Wilian Dempsey MD PCP: Dr. Minerva Shaver MD Status:REG E R Location: ED HPI History of Present Illness Chief Complaint: Neuro S/Sx Detail of Chief Complaint: Strokelike symptoms and pericardiaTriage nurse Informant: patient, friend and other Onset/Context/Timing Onset: - (Neuro symptoms may have started greater than a week ago. She also complains of cardiac symptoms.) Context: Sudden Onset Timing: Continuous Quality: Neuro symptoms are continuous and see HPI narrative for detail. Cardiac sy Location: Neuro and cardiovascular Current Severity: Severe Maximum Severity: Severe Worsened by: Dyspnea on exertion, orthopnea and altered sensation weakness left side Relieved by: Nothing Associated Symptoms Associated Symptoms: Orthostatics Narrative Narrative: Patient is a 77-year-old woman with history of and on Eliquis stage III diastolic dysfunction with a preserved ejection fraction of 55%. There is mild focal aortic valve calcification noted. Pulmonary artery systolic pressure is 46. This information was obtained from echocardiogram interpreted by Dr. Maxim Ibarra on August 06, 2022. Patient presents because of facial droop, altered sensation and weakness left side. She states the weakness in her left upper extremity has improved. She was unaware that she had a left facial droop. She thought the droop was on the right side. She was questioned regarding compliance with her anticoagulant, Eliquis. She states she has not missed a dose. She denies headache. She denies recent head trauma. She denies ocular, visual auditory symptoms. She denies trouble with speech or swallowing. She denies problems with coordination or balance. She denies black or maroon-colored stool. She denies increased orthopnea. She denies PND. She denies chest comfort. Prior similar symptoms: No Recent Illness/Hospitalization: No PFSH PFSH Medical History Abnormal bruising Acute cholecystitis Arthritis Atrial fibrillation Atrial fibrillation with RVR (10/31/18) Moses's esophagus Calculus of kidney Cancer Cardiomyopathy in other diseases classified elsewhere Carpal tunnel syndrome Chest pain Chronic diastolic (congestive) heart failure Chronic neck and back pain Diarrhea Difficulty balancing when standing GERD (gastroesophageal reflux disease) Heart disease History of DVT (deep vein thrombosis) Hypertension Non-rheumatic tricuspid valve insufficiency Nonrheumatic aortic valve stenosis Panlobular emphysema Paroxysmal atrial fibrillation Rotator cuff tear Scoliosis of cervical spine Shoulder pain SOB (shortness of breath) Tendonitis of shoulder, right Tubular adenoma of colon URI (upper respiratory infection) Home Medications multivitamin with folic acid 400 mcg tablet 1 tab PO DAILY supplement 03/15/13 [History Last Taken 10/31/18 07:00] melatonin 3 mg capsule 3 mg PO HS 01/19/21 [History Last Taken Unknown] calcium carbonate 500 mg calcium (1,250 mg) tablet 500 mg PO DAILY 06/25/21 [History Last Taken Unknown] diclofenac sodium 75 mg tablet,delayed release 75 mg PO .COMPLEX 06/25/21 [History Last Taken Unknown] furosemide 40 mg tablet 40 mg PO DAILY #90 tabs 08/31/21 [Rx Last Taken Unknown] sucralfate 1 gram tablet 1 g PO QACHS 05/07/22 [History Last Taken Unknown] apixaban 5 mg tablet 5 mg PO BID #180 tabs 06/14/22 [Rx Last Taken 08/05/22] valsartan 40 mg tablet 40 mg PO DAILY pt only taking 1/2 pill, ord by Dr. Shaver 07/11/22 [History Last Taken Unknown] cyclobenzaprine 10 mg tablet 10 mg PO HS PRN muscle spasm 07/25/22 [History Last Taken Unknown] famotidine 20 mg tablet 20 mg PO BID 07/25/22 [History Last Taken Unknown] potassium chloride 20 mEq tablet,extended release(part/cryst) 20 meq PO DAILY #180 tabs 07/25/22 [Rx Last Taken Unknown] metoprolol succinate 50 mg tablet,extended release 24 hr 100 mg PO BID #30 tabs 07/29/22 [Rx Last Taken 08/05/22] flecainide 100 mg tablet 150 mg PO BID #90 tabs 08/05/22 [Rx Last Taken Unknown] Allergy/AdvReac Type Severity Reaction Status Date / Time etodolac Allergy Intermediate Other Verified 08/08/22 15:53 diltiazem HCl [From Cardizem] Allergy Swelling Verified 08/08/22 15:53 of face and neck naproxen Allergy Swelling Verified 08/08/22 15:53 (whole body) prednisone Allergy Other Verified 08/08/22 15:53 amiodarone AdvReac Severe Severe Verified 08/08/22 15:53 dyspnea after taking PO Amiodarone adhesive AdvReac Rash Verified 08/08/22 15:53 albuterol AdvReac Other Verified 08/08/22 15:53 codeine AdvReac Vomiting Verified 08/08/22 15:53 hydrocodone bitartrate AdvReac Vomiting Verified 08/08/22 15:53 [From Vicodin] morphine AdvReac Vomiting Verified 08/08/22 15:53 Family History Sister Afib Father CAD (coronary artery disease) Brother CVA (cerebral vascular accident) Mother No problems noted. Sister No problems noted. Brother Wilsons disease Brother Wilsons disease Surgical History H/O hernia repair H/O neck surgery History of cardioversion (11/23/18) History of left heart catheterization (03/15/13) History of radiofrequency ablation procedure for cardiac arrhythmia (07/27/15) Hx of cholecystectomy Hx of fusion of cervical spine ovarian surgery Social History Smoking Status: Former smoker alcohol intake: never substance use type: does not use caffeine: Yes Type: coffee Number of servings: 1 what type of physical activity do you participate in: walking frequency: daily seatbelt use: always do you feel safe at home: Yes ROS ROS ED Constitutional Constitutional ED: Denies chills, fever(s) or subjective Eyes Eyes: Denies blurry vision, change in vision or diplopia ENT ENT ED: Denies ear pain, rhinorrhea or sore throat Cardiovascular Cardiovascular: Reports orthopnea and other Details: Orthostatic hypotension ; Denies chest pain, palpitations, paroxysmal nocturnal dyspnea or racing heartbeat Respiratory/Chest Respiratory/Chest: Reports dyspnea, dyspnea on exertion and orthopnea; Denies cough or paroxysmal nocturnal dyspnea Gastrointestinal Gastrointestinal: Denies abdominal pain, diarrhea, melena, nausea or vomiting Genitourinary Genitourinary ED: Denies dysuria, hematuria or urinary frequency Musculoskeletal Musculoskeletal: Denies arthralgias, back pain, myalgias or neck pain Integumentary Denies abscess, Abrasions or rash Neurologic Neurologic: Reports paresthesias and weakness; Denies headache(s) Endocrine Endocrinology: Denies cold intolerance or heat intolerance Hematologic/Lymphatic Hematologic/Lymphatic: Reports systems reviewed and no addt'l complaints, exceptas documented EXAM Physical Exam Narrative Exam Narrative: NIH stroke scale General transfer line: 4 facial palsy one-point 6 left leg one-point 8 sensory one-point Total score 3 Const Vital Signs: 08/08/22 15:53 08/08/22 16:23 08/08/22 16:25 Temperature 97 F L Temperature Source Temporal Pulse Rate 45 L 42 L 51 L Respiratory Rate 14 20 H 17 Blood Pressure 151/89 H 169/66 H 169/66 H Blood Pressure Mean 109 100 100 Pulse Ox 92 96 94 Oxygen Delivery Method Room Air Room Air Room Air 08/08/22 16:26 08/08/22 16:29 Temperature Temperature Source Pulse Rate 38 L Respiratory Rate Blood Pressure Blood Pressure Mean Pulse Ox Oxygen Delivery Method Room Air Positive well nourished and well developed Constitutional Narrative: Patient appears pale. General Appearance ED: well developed and pallor; Negative for cyanotic or NAD HEENT Reports moist mucous membranes HEENT Narrative: Head is atraumatic normocephalic. There is no clinical findings of basilar skull fracture or head trauma. There is no septal deviation hematoma. Posterior pharynx unremarkable. There is no deviation of the tongue with protrusion. Eyes PERRL and EOMs intact bilaterally Eyes Narrative: There is no nystagmus. General Eye ED: Negative for pale conjunctiva or scleral icterus Neck no lymphadenopathy, supple and no JVD Neck Narrative: Scar noted anterior right neck due to cervical spine surgery. Chest Wall inspection of chest normal and palpation of chest normal Resp No normal respiratory effort and No clear to auscultation bilaterally Auscultation: rales bilateral base Cardio regular rhythm, S1 normal heart sound, S2 normal heart sound and no murmurs Rate: bradycardia GI normal to inspection, nondistended, normoactive bowel sounds, non-tender, non-distended and no masses; Negative for hepatosplenomegaly Back/Spine no CVA tenderness Thoracic Spine / Upper Back: Negative for thoracic spinal tenderness Lumbar Spine / Lower Back: Negative for lumbar spinal tenderness Extremity General Extremety ED: Yes edema General Extremity: edema Neuro oriented x3, CN's II-XII intact bilaterally and No no sensory deficits noted Neuro Narrative: Altered sensation left side of face, left upper and left lower extremity. Weakness noted left lower extremity. Patient has a facial droop on the left. Sensorium / Orientation: alert Motor Exam: Negative for strength 5/5 throughout Skin no rashes or lesions noted, no wounds and No skin turgor normal General Skin Exam: jaundice and pallor; Negative for elasticity normal MDM MDM MDM Narrative Medical decision making narrative: Call was placed to Dr. Esteves since he recently saw patient. He informed that she is on flecainide 100 mg twice daily and metoprolol 100 mg twice daily. Recommendation since she is hemodynamically stable is hold metoprolol for this time. Patient has severe bradycardia. She is hemodynamically stable. Pacemaker pads were applied and resuscitation cart brought to room. She is also had a stroke and will need a stroke work-up. Appropriate orders were initiated for the stroke work-up. Since patient appears jaundiced and endorses dark-colored urine hepatic profile was added to the stroke order set. Chest x-ray is obtained since patient appears dyspneic and has bibasilar rales. History & Record Review Discussion w/independent historian: Patient, Friend and Other (National Business Director, Dr.Cyril Ibarra) Additional record(s) reviewed:: Prior inpatient record, Prior outpatient record and Prior labs Lab Data Attestation: I reviewed the patient's lab results. Lab results narrative: CBC is unremarkable. Coags normal. Electrolyte panel is unremarkable. Hepaticpanel is pending. Labs: Laboratory Results - last 24 hr 08/08/22 08/08/22 08/08/22 16:20 16:20 16:20 WBC 8.7 RBC 4.29 Hgb 12.6 Hct 38.9 MCV 90.7 MCH 29.4 MCHC 32.4 RDW Std Deviation 45.7 H RDW Coeff of Elvie 14.0 Plt Count 314 MPV 10.5 Immature Gran % (Auto) 0.300 Neut % (Auto) 59.9 Lymph % (Auto) 28.7 Willacy % (Auto) 9.6 Eos % (Auto) 1.2 Baso % (Auto) 0.3 Absolute Neuts (auto) 5.2 Absolute Lymphs (auto) 2.49 Nucleated RBC % 0 PT 17.8 H INR 1.5 APTT 34.7 Sodium 140 Potassium 4.2 Chloride 104 Carbon Dioxide 27.0 Anion Gap 9 BUN 35 H Creatinine 1.24 H Estim Creat Clear Calc 29.58 Est GFR (MDRD) Af Amer 54 L Est GFR (MDRD) Non-Af 45 L BUN/Creatinine Ratio 28.2 H Glucose 103 Calcium 9.9 Troponin I High Sens 8 Radiography Chest X-Ray - ED: 1 View and Read by ED Physician (Chest x-ray reveals chronic changes. There is no obscuring of the cardiac silhouette. There is no evidenceof effusion or heart failure. Ostia structures are unremarkable. This was independently reviewed interpreted by me) Diagnostic Testing: Clinical Impression(s) from Imaging Studies Brain CT 08/08/22 16:21 IMPRESSION: There are no acute findings. Chronic involutional changes of the brain. Electronically Signed: Yeyo Moran MD at 17:02 EDT , ADDENDUM: 08/08/22 1709 IMPRESSION: There are no acute findings. Chronic involutional changes of the brain. N.B. : The above Results were Read Back by Yeyo Moran MD to Wilian Dempsey MD, and understanding confirmed on 08/08/2022 17:03:01 (ET). Electronically Signed: Yeyo Moran MD at 17:02 EDT , Chest X-Ray 08/08/22 16:42 IMPRESSION: There are no acute findings. Electronically Signed: Yeyo Moran MD at 17:03 EDT , CT of the head without contrast reveals no evidence of subdural, epidural, subarachnoid hemorrhage or intraparenchymal hemorrhage. There is no obvious stroke noted. Awaiting formal read by radiologist. Rhythm Strip Rhythm Strip: Sinus Rhythm Rate: 33 Ectopy: PAC(s) EKG Initial EKG: Attestation: I personally reviewed and interpreted this EKG as follows: Interpretation: Sinus Bradycardia (Ventricular rate is 33. There is premature supraventricular complexes noted. MA interval is 168 ms. Cures duration 118 ms. QT duration 474 ms. Casper to left. There is evidence of an RRprime in V1 and V2 consistent with a incomplete right bundle branch block. There is no civic changes noted.) Management Discussion w/another healthcare provider: Hospitalist and Component Overhaul Operator Critical Care Time Critical Care Time: Yes Critical care time (excluding procedures): 30-74 minutes (37 minutes), Includingtime spent: (History, physical, documentation, review of outside records and interpretation of laboratory results initiation of therapy), Discussing w/Patient &/or Family/Pole Climber, Discussing w/Consultants (Cardiology, hospitalist), Arranging Admission or Transfer and Performing Direct Patient Careat Bedside Discharge Plan Dx/Rx/DC Orders Clinical Impression: Bradycardia, sinus, persistent, severe, residential (current) use of anticoagulants, Chronic diastolic (congestive) heart failure, Acute stroke due to ischemia Disposition Disposition: Acute Care Hospital [facility] What to do if you have Problems For any increased pain, shortness of breath, bleeding, nausea or vomiting, chestpain, or any unexpected problems, contact your Primary Care Provider. Call [facility] ([phone]) or report to the closest Emergency Room. Call 911 if necessary. 08/08/22 1718 <Electronically signed by Wilian Dempsey MD> Cosigner Signature (if applicable): CC: Dr. Minerva Shaver MD ~ Signed [facility] Work Phone: [phone] Miscellaneous Notes* Telephone Encounter - Nadia Bourne - 07/25/2022 12:15 PM EDT Pt already scheduled. Nadia Bourne * Telephone Encounter - Minerva Shaver MD - 07/23/2022 8:03 AM EDT Please set her up with Dr Persaud I do think there is a back component too with it but yes we can see what the vascular part of it is Regards, Minerva Shaver MD * Telephone Encounter - Felicitas Prince LPN - 07/22/2022 12:51 PM EDT This is for problems wanting. Patient walks and then is unable to walk. like the blood flow stopped. Felicitas Prince LPN * Telephone Encounter - Minerva Shaver MD - 07/20/2022 12:32 PM EST Please confirm the diagnosis she needs this for. Regards, Minerva Shaver MD * Telephone Encounter - Felicitas Prince LPN - 07/19/2022 4:13 PM EST patient is needing a referral to Dr. Eddie Segal for her insurance. Felicitas Prince LPN [facility] History of Present illness Narrative* Katheryn Stokes MD - 07/21/2022 6:31 AM EDT FOLLOW UP VISIT - ENDOSCOPY NAME: Elizabeth Steen [facility] NO.: [id number] DATE OF SERVICE: July 18, 2022 : 1945 REFERRING PHYSICIAN: Minerva Shaver MD Elizabeth is a patient I [...] patient had a swallow study performed at [facility] which she noted was demonstrating food sticking in her upper esophagus. This performed on May 07, 2022. Report from the study demonstrated: Mild oropharyngeal phase dysphagia with decreased bolus controlwith some spilling into the piriform area observed [...] on November 22, [address] Carmencita Vázquez. He noted on upper endoscopy Impression: - Savary-Persaud Grade I reflux esophagitis. Biopsied. - Normal stomach. Biopsied. - Normal examined duodenum. Lower endoscopy: Impression: - Four 5 mm polyps at 20 cm proximal to the anus and at 30 cm proximal to the anus. Resected and retrieved. - Diverticulosis in the sigmoid colon and in the descending colon. - External and internal hemorrhoids. Pathology demonstrated: Scleroscope Tester Specimen [facility] Specimen #: [id number] Submitting Physician: CARMENCITA CORDOBA MD FINAL DIAGNOSIS 1. Gastric antrum, [...] biopsies (D) - Fragments of hyperplastic polyp. JIndigo/geovani 11/24/2015 COMMENT 1. Results of an immunohistochemical stain for H. pylori will be reported in an addendum. Follow-up upper endoscopy on February 28, 2016. Pathology from this endoscopy demonstrated: FINAL DIAGNOSIS Gastric antrum, biopsy - Reactive gastropathy. - No histomorphologic evidence of Helicobacter pylori organisms. The patient is being seen by me today at the request of Dr. Minerva Shaver MD for my opinion and advice regarding epigastric/reflux symptoms and desire for follow-up colonoscopy given when the patientwas told she should undergo follow- up endoscopy. Here the patient also notes that [...] the Carafate prescription but her pharmacy was outof that medication. She notes that in the [...] regurgitation symptoms. She followed up with her title curator on July 05, 2022. TRhey felt she [...] me in 1 month prior to planned herniarepair. Katheryn Stokes MD documented in this encounterKettering [facility]02-23-2023 Miscellaneous Notes* Telephone Encounter - Minerva Shaver MD - 07/04/2022 2:47 PM EST Forms were filled * Telephone Encounter - Tamannatito Cordova Ma - 06/27/2022 11:38 AM EST Spoke with patient and states her start date date of 04/29 and end date of 06/24.This was continuousleave * Telephone Encounter - Minerva Shaver MD - 06/27/2022 10:18 AM EST Please get the exact date we need to write for starting and ending and also if this is the one timecontinuous leave that she is requesting Regards, Minerva Shaver MD * Telephone Encounter - Monica Saha LPN - 06/27/2022 9:52 AM EST Type of form: FMLA Form received via fax When form is completed, Fax form to [facility] Form has been forwarded to Physician Desk: Dr. Dr. Sindhu Saha LPN documented in this encounterKettering [facility]02-07-2023 Nurse Note* Felicitas Prince LPN - 06/18/2022 3:44 PM EST faxing letter to [facility] HR at [phone] documented in this encounterKettering Health [facility]02-07-2023 History of Present illness Narrative* Minerva Shaver MD - 06/18/2022 2:45 PM EST Reason for Visit Patient presents with: Follow Up: review results, needs a letter for work needs to be specific and elevated blood pressure Elizabeth Persaud is a 77 year old female who presents here today for Above Complaints. Health Maintenance SPIROMETRY BP CONTROLLED (<130/80) ALPHA-1 ANTITRYPSIN DEFICIENCY SCREENING DTAP,TDAP,TD(1 - Tdap) MAMMOGRAM COVID-19 VACCINE(4 - Booster for Moderna series) SHINGRIX VACCINE(3 of 3) ADVANCE DIRECTIVE DISCUSSION DEPRESSION ASSESSMENT HPI Since she last seen me she had a egd and colonoscopy has reflux esophagitis, no other abnormalitieswere noted. She is doing better with the [...] surgery with implants- Dr Jacob Aguilar at [facility] PAST SURGICAL HISTORY OF 07/27/2015 cryo ablation, cardiac RPR UMBILICAL HRNA 5 YRS/> REDUCIBLE 07/17/2010 Hernia repair, umbilical >5yr [facility] Dr Manuel Hoover SHX COSMETIC SURGERY SKIN BIOPSY HX FAMILY HISTORY Problem Relation Age of Onset Hypertension Mother Stroke Mother Coronary Artery Disease Father other (wilsons disease) Brother other (VINCE'S DISEASE) Brother Liver dse, cirrhosis Social History [...] ORAL) CALCIUM CARBONATE/VITAMIN D3 (VITAMIN D-3 ORAL) [id number] ORAL Review of Systems CONSTITUTIONAL: No fevers, [...] F) Resp 12 Ht 157.5 cm (5' 2) Wt 61.7 kg (136 lb) SpO2 95% [...] next visit - Goal of BP <130/80 Minerva Shaver MD documented in this encounterKettering [facility]02-06-2023 Miscellaneous Notes* Telephone Encounter - Tamanna Cordova Ma - 06/17/2022 2:28 PM EST Patient notified. * Telephone Encounter - Tamanna Cordova Ma - 06/17/2022 2:23 PM EST ----- Message from Minerva Shaver MD sent at 06/16/2022 8:29 PM EST ----- Elizabeth, I would like you to cut out the vit d supplements totally for 3 montsh as the vit d is very high. The pancrease enzymes were normal so was vit d Minerva Pichardo MD documented in this encounterKettering Health [facility]01-28-2023 History of Present illness Narrative* Minerva Shaver MD - 06/08/2022 1:[address] Donnelly, The patient unfortunately has been having right upper quadrant pain which is going on for a few years intermittently but now its almost constant for the past few days. This is the same pain she felt when she had cholecystitis and ended up with a cholecystectomy. We are very confused about the imaging reports. Her imaging studies done at the [facility] radiology CT scan abdomen shows that there is a questionable calcified gallbladder with some abnormalities noted. [facility] [...] his imaging hence I am Reaching out. Minerva Pichardo MD documented in this encounterKettering Health [facility]01-28-2023 History of Present illness Narrative* Minerva Shaver MD - 06/08/2022 10:54 AM EST Reason for Visit Patient presents with: 2 week follow-up Elizabeth Persaud is a 77 year old female who [...] the past. It is between the shoulder andthe neck, the same spot that she had pain when she had the cholecystectomy. Interestingly she had act that showed calcified gall bladder and the US showed no gall bladder. Would like her to talk to Dr Stokes to see what he opines on this. She is going to have an EGD and colonoscopy as discussed for her abdominal complaints She also notes today that her legs go weak all of a sudden, and she feels like she is going to falland she cannot pick her leg up. She [...] surgery with implants- Dr Jacob Aguilar at [facility] PAST SURGICAL HISTORY OF 07/27/15 cryo ablation, cardiac RPR UMBILICAL HRNA 5 YRS/> REDUCIBLE 07/17/2010 Hernia repair, umbilical >5yr [facility] Dr Manuel Hoover FAMILY HISTORY Problem Relation Age of Onset Hypertension Mother Stroke Mother Coronary Artery Disease Father other (wilsons disease) Brother other (VINCE'S DISEASE) Brother Liver dse, cirrhosis Social History [...] ORAL) CALCIUM CARBONATE/VITAMIN D3 (VITAMIN D-3 ORAL) [id number] ORAL estradiol (ESTRACE) 0.01 % (0.1 mg/gram) [...] ICD10: E55.9 - VITAMIN D 25 HYDROXY Minerva Shaver MD documented in this encounterKettering [facility]01-17-2023 History of Present illness Narrative* Sunday Ellis RT(R) - 05/28/2022 11:00 AM EST Radiology Service Progress Note PATIENT NAME: Elizabeth Persaud DATE OF SERVICE: May 28, 2022 TIME: 11:57 AM PATIENT IDENTITY VERIFICATION COMPLETED USING TWO (2) IDENTIFIERS: Name and Date of confirmedby patient verbally. FALL SCREENING: Has the patient [...] 28, 2022 11:57 AM documented in this encounterKettering Health [facility]01-16-2023 Miscellaneous Notes* Telephone Encounter - Sonia Diane - 05/27/2022 11:04 AM EST 06/11/2022 colon asc Patient accepted sooner date Sonia Diane Inspector Packager * Telephone Encounter - Sonia Diane - 05/27/2022 8:37 AM EST Patient on waitlist for sooner opening with Dr. Stokes * Telephone Encounter - Sonia Diane - 05/23/2022 4:14 PM EST 07/02/2022 COLON/EGD ASC documented in this encounterKettering Health [facility]01-12-2023 History of Present illness Narrative* Katheryn Stokes MD - 05/23/2022 6:12 PM EST HISTORY AND PHYSICAL Elizabeth Persaud 1945 REFERRING PHYSICIAN: Dianna Ballard APRN.BOILERMAKER SHIP CHIEF COMPLAINT: Consult (Hiatal hernia) HPI: The [...] patient had a swallow study performed at [facility] which she noted was demonstrating food corticoid sticking in her upper esophagus. This performed on May 07, 2022. Report from the study demonstrated: Mild oropharyngeal phase dysphagia with decreased bolus controlwith some spilling into the piriform area observed [...] on November 22, [address] Carmencita Vázquez. He noted on upper endoscopy Impression: - Brianne Grade I reflux esophagitis. Biopsied. - Normal stomach. Biopsied. - Normal examined duodenum. Lower endoscopy: Impression: - Four 5 mm polyps at 20 cm proximal to the anus and at 30 cm proximal to the anus. Resected and retrieved. - Diverticulosis in the sigmoid colon and in the descending colon. - External and internal hemorrhoids. Pathology demonstrated: Scleroscope Tester [facility] #: [id number] Submitting Physician: CARMENCITA CORDOBA MD FINAL DIAGNOSIS 1. Gastric antrum, [...] me today at the request of Dr. Minerva Shaver MD for my opinion and advice regarding epigastric/reflux symptoms and desire for follow-up colonoscopy given when the patientwas told she should undergo follow- up endoscopy. Here the patient also notes that [...] surgery with implants- Dr Jacob Aguilar at [facility] PAST SURGICAL HISTORY OF 07/27/15 cryo ablation, cardiac RPR UMBILICAL HRNA 5 YRS/> REDUCIBLE 07/17/2010 Hernia repair, umbilical >5yr [facility] Dr Manuel Hoover Current Outpatient Medications [...] 1,000 mg by mouth five times daily. [id number] ORAL Take by mouth. peg 3350-Electrolytes (GOLYTELY) [...] Disease Father other (wilsons disease) Brother other (VINCE'S DISEASE) Brother Liver dse, cirrhosis REVIEW OF SYMPTOMS: The review of systems data was entered by the nurse and reviewed by ky Nursing Notes: Julieta Avendano RN 05/23/2022 2:10 PM Signed REVIEW OF SYSTEMS: General: The patient NOTES fatigue, denies weight loss, denies weight gain, denies feeling hot, anddenies feelings of cold. Eyes: The patient denies [...] nourished, well hydrated in no acute distress. Thepatient is oriented to time, place, and person. VITALS: Blood pressure 124/72, pulse 62, temperature 36.6 C (97.9 F), height 157.5 cm (5' 2), weight 61.5 kg (135 lb 9.6 oz), SpO2 95 %. Body mass index is 24.8 kg/m . HEENT: Normal cephalic, ataumatic, pupils are equally round, sclera are anicteric, mucous membranesare moist, oropharynx is clear. Neck has no [...] that complications can occur including failure to completethe endoscopy and perforation. The patient had the [...] and without IV contrast to assess for recurrentincisional hernia Diagnoses: (Z86.010) Personal history of colonic polyps (primary encounter diagnosis) (K44.9, K21.9) Hiatal hernia with GERD without esophagitis (R13.10) Dysphagia, unspecified type (K43.2) Incisional hernia, without obstruction or gangrene My findings have been communicated to Dr. Minerva Shaver MD via shared medical record. This note will be forwarded to Dr. Minerva Shaver MD. Return to Clinic: The patient is instructed to follow-up with me after the testing has been completed. Katheryn Stokes MD documented in this encounterKettering [facility]01-12-2023 Instructions* Patient Instructions* Katheryn Stokes MD - 05/23/2022 2:59 PM EST Images from the original note were not included. Bowel Preparation Instructions for: Golytely, Nulytely, Trilyte or Colyte (polyethylene glycol 3350and electrolytes) IF YOU DO NOT FOLLOW THESE DIRECTIONS, YOUR COLONOSCOPY WILL BE CANCELLED. Tamez Instructions: Your bowel must be empty so [...] If you do not have a responsible escort vehicle driver (family member or friend) with you to take you home, your exam cannot be done with sedation and will be cancelled. Please bring a list of all of your current medications, including any Over-the Counter medications with you. Medications If you take insulin, diabetic medications or blood thinners such as Coumadin (warfarin), Plavix (clopidogrel), Ticlid (ticlopidine hydrochloride), Agrylin (anagrelide), Xarelto (Rivaroxaban), Pradaxa(Dabigatran), Eliquis (Apixaban), and Effient (Prasugrel). You MUST [...] Golytely, Nulytely, Trilyte or Colyte (polyethylene glycol 3350and electrolytes) Three (3) Days Before Your Colonoscopy [...] until midnight. 2 04/2019 documented in this encounterKettering Health [facility]01-12-2023 Nurse Note* Julieta Avendano RN - 05/23/2022 2:05 PM EST REVIEW OF SYSTEMS: General: The patient NOTES fatigue, denies weight loss, denies weight gain, denies feeling hot, anddenies feelings of cold. Eyes: The patient denies [...] 2017 Julieta Avendano RN documented in this encounterKettering [facility]01-12-2023 Miscellaneous Notes* Telephone Encounter - Tamanna Cordova Ma - 05/23/2022 12:23 PM EST Patient notified at appointment. * Telephone Encounter - Tamanna Cordova Ma - 05/23/2022 12:22 PM EST ----- Message from Minerva Shaver MD sent at 05/23/2022 8:06 AM EST ----- Urine culture does not have any growth Regards, Minerva Shaver MD documented in this encounterKettering Health [facility]01-11-2023 Instructions* Patient Instructions* Dianna Ballard APRN.CNP - 05/22/2022 1:39 PM EST Restart omeprazole documented in this encounterKettering Health [facility]01-11-2023 History of Present illness Narrative* Dianna Ballard APRN.CNP - 05/22/2022 1:23 PM EST CC: Patient presents with: Recheck: Follow up, review labs HPI Elizabeth Persaud is a 77 year old female who [...] No recent Abdominal diagnostics performed outside of [place].Has had these symptoms since early April and [...] PARTIAL/TOTAL UNI/BI 07/17/2010 Oophorectomy - left Dr. aMnuel Hoover - Dr. Alessio Dahl PAST SURGICAL HISTORY OF NECK SURGERY, anterior fusion PAST SURGICAL HISTORY OF Face lift PAST SURGICAL HISTORY OF back surgery PAST SURGICAL HISTORY OF bilat foot surgey, bunionectomy PAST SURGICAL HISTORY OF benign tumor removed from right breast PAST SURGICAL HISTORY OF 03/2011 B/L cataract surgery with implants- Dr Jacob Aguilar at [facility] PAST SURGICAL HISTORY OF 07/27/15 cryo ablation, cardiac RPR UMBILICAL HRNA 5 YRS/> REDUCIBLE 07/17/2010 Hernia repair, umbilical >5yr [facility] Dr Manuel Hoover ALLERGIES Cardizem [Diltiazem [...] 1,000 mg by mouth five times daily. [id number] ORAL Take by mouth. FAMILY HISTORY Problem Relation Age of Onset Hypertension Mother Stroke Mother Coronary Artery Disease Father other (VINCE'S DISEASE) Brother Liver dse, cirrhosis Social History [...] to restart omeprazole as previously ordered and keepappointment with Dr. Stokes tomorrow. 2. Hiatal hernia [...] thus far is unconcerning but with reports oflow grade fever patient needs to see infectious [...] symptoms occur. Patient agreeable to treatment plan. Dianna Ballard APRN.CNP documented in this encounterKettering Health [facility]01-10-2023 Miscellaneous Notes* Telephone Encounter - Hodan Stevens APRN.CNP - 05/21/2022 1:06 PM EST Agree with keeping follow up tomorrow and seeing Dr. Stokes this week. If symptoms worsening priorto the appointment then needs to be seen/evaluated in ER. * Telephone Encounter - David Ortiz RN - 05/21/2022 9:26 AM EST Pt states the pain isn't ay worse and she isn't going to go to the ER she was there 4 hours last time. She states she has an appointment with Dr Rider in July. Put Pt through to scheduling to set up appointment with Dr Stokes. Pt is just going to keep appointment with provider tomorrow. * Telephone Encounter - Dianna Ballard APRN.CNP - 2022 4:40 PM EST Patient has had all of these complaints previously, is her abdomen as it has been or worse. If she has a very hard abdomen with pain she needs urgently evaluated. Thank you Dianna Ballard APRN.CNP * Telephone Encounter - Felicitas Prince LPN - 2022 3:05 PM EST Patient notified and stated that she just [...] and hard please advise. Felicitas Prince LPN * Telephone Encounter - Dianna Ballard APRN.CNP - 2022 8:52 AM EST Please let patient know blood cultures are negative. How is she feeling today? Better or worse? Anynew symptoms? Thank you Dianna Ballard APRN.CNP documented in this encounterKettering Health [facility]01-06-2023 Miscellaneous Notes* Telephone Encounter - Tamanna Cordova Ma - 05/17/2022 3:40 PM EST Patient states symptoms are not worse that they were, notified of new lab cultures and appointment scheduled. * Telephone Encounter - Dianna Ballard APRN.CNP - 05/17/2022 3:19 PM EST Are these symptoms worse than when saw 2 days ago? Legs were only slightly swollen at that visit. Has she called cardiology? Has she stopped drinking the pedialyte? Thank you Dianna Ballard APRN.CNP * Telephone Encounter - Felicitas Prince LPN - 05/17/2022 1:37 PM EST Patient still c/o fever 99.5 high for [...] not felt right. Had surgery up in [place]. Patient is really wanting to go back to work. 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 Please review and advise documented in this encounterKettering Health [facility]01-04-2023 Instructions* Patient Instructions* Dianna Ballard APRN.CNP - 05/15/2022 11:57 AM EST Call cardiology for follow up. documented in this encounterKettering Health [facility]01-04-2023 History of Present illness Narrative* Dianna Ballard APRN.CNP - 05/15/2022 11:35 AM EST CC: Patient presents with: Recheck: Follow up, review results HPI Elizabeth Persaud is a 76 year old female who presents today for mutiple concerns. Has had difficulty with SOB, dizziness, fatigue, decreased appetite,and low heart rate since havingpneumonia and uncontrolled A-fib. All of this causing her to miss work because of symptoms, diagnostic testing, and medical visits. Last visit was with different internal Medicine FORMULATOR after ER visit. Patient with history of hiatal hernia, abdominal distension, uncontrolled reflux, nausea, difficultyswallowing, and decreased appetite. Patient felt shortness of breath was related to this. Was scheduled to see GI but unable to get in until July. Since then liver enzymes were elevated, RUQ US showing fatty liver but no acute concerns, and swallow study showing mild dysphagia with recommendationsof no straws, small bites, and soft meats. [...] with urination, abdominal pain, diarrhea, or vomiting. Doesreport foul smelling urine. REVIEW OF SYSTEMS See [...] surgery with implants- Dr Jacob Aguilar at [facility] PAST SURGICAL HISTORY OF 07/27/15 cryo ablation, cardiac RPR UMBILICAL HRNA 5 YRS/> REDUCIBLE 07/17/2010 Hernia repair, umbilical >5yr [facility] Dr Manuel Hoover ALLERGIES Cardizem [Diltiazem [...] 1,000 mg by mouth five times daily. [id number] ORAL Take by mouth. FAMILY HISTORY Problem Relation Age of Onset Hypertension Mother Stroke Mother Coronary Artery Disease Father other (VINCE'S DISEASE) Brother Liver dse, cirrhosis Social History [...] labs and imaging results. Outside chart from [facility] reviewed. ASSESSMENT/PLAN: 1. Shortness of breath - ICD9: 786.05, ICD10: R06.02 (primary diagnosis) - unsure on cause. Possibly from non cardiac or respiratory cause. Since still with low grade feverand fatigue will repeat CXR - XR CHEST 2V FRONTAL/LAT - discussed that Pedialyte has a large amount of sodium so [...] symptoms occur. Patient agreeable to treatment plan. Dianna Ballard APRN.CNP I spent 35 minutes in the visit, with more than 50% of the total dmnp-ki-mplt time of the visit in counseling / coordination of care. documented in this encounterKettering Health Dayton12-28-2022 Miscellaneous Notes* Telephone Encounter - Dianna Ballard APRN.CNP - 05/08/2022 6:57 PM EST Noted. Will review further at follow up. Dianna Ballard APRN.CNP * Telephone Encounter - Tamanna Cordova Ma - 05/08/2022 6:21 PM EST Spoke with patient, had barium swallow study done, US is scheduled for Friday. Patient thinks she may be feeling a little better but legs are still feeling they are going to give out on patient. Patient is scheduled for follow up. * Telephone Encounter - Dianna Ballard APRN.CNP - 05/08/2022 8:15 AM EST Papers have been filled out for 04/24/22 through 05/25/21, but papers still need patient's signature. How is she feeling? I do not see a follow up scheduled or the US. Did she follow up elsewhere or have US elsewhere? If not she needs to be re-evaluated. Thank you Dianna Ballard APRN.CNP * Telephone Encounter - Tamanna Cordova Ma - 05/02/2022 12:14 PM EST Spoke with patient, Dr Shaver wrote patietn off work 04/18-04/19. Patient went back to work and workedthe 04-23 but has not worked since 04/23. Patient complains of severe fatigue, feels legs are giving out on her when walking so she stops until she feels better. Patient states stomach is swollen, labs showed her ALT was elevated, waiting on US to be scheduled. Patient is also complaining of brain fog, feels she has to stop and think to finish her thoughts. * Telephone Encounter - Dianna Ballard APRN.CNP - 05/02/2022 7:21 AM EST Please call patient and get more information regarding FMLA papers. When date did this begin? Is she still off work? I am assuming this is for your shortness of breath and other chronic conditions? Thank you Dianna Ballard APRN.CNP documented in this encounterKettering Health [facility]12-21-2022 Miscellaneous Notes* Telephone Encounter - Veronica Villar LPN - 05/01/2022 2:13 PM EST Brianda with Dr. Rider's office at [facility] called for referral and supporting papers faxed to [phone]. Identified pt with name and date of .. Done. Veronica Villar LPN documented in this encounterKettering Health Dayton12-20-2022 Miscellaneous Notes* Telephone Encounter - Edwige Curtis LPN - 04/30/2022 3:44 PM EST PATIENT NOTIFIED OF SAME. Order for US has been faxed to [facility] scheduling office. Recent labs and office note faxed to Dr. Rider's office. Patient had yet to hear from this office about an appointment. Did encourage patient to call his office to schedule a follow up. Barium swallow is scheduled for 05/14/22 at [facility] as that is the soonest available. * Telephone Encounter - Hodan Stevens APRN.CNP - 04/30/2022 2:39 PM EST Please call patient and let her know her labs are back and show her liver numbers are elevated. When is she scheduled to see Dr. Rider and when is her barium swallow scheduled for? I am going tot aly and add an ultrasound of the liver to her testing since numbers came back elevated. documented in this encounterKettering Health Dayton12-19-2022 History of Present illness Narrative* Hodan Stevens APRN.CNP - 04/29/2022 2:14 PM EST SUBJECTIVE Elizabeth Persaud is a 76 year old female here today for an ER follow up. Chief Complaint Patient presents with: ER F/U: SOB and low hr Flecanide was decreased and heart rate has improved HPI Elizabeth Persaud is a 76 year old female who is an established patient of Dr. Shaver who presents today for ER follow up. She had presented to ER for shortness of breath and a low heart rate on 04/27/2022. She was seen at [facility] and those records are available for review today and were reviewed with thisvisit. She had been seen on 04/26 for a virtual visit with another internal medicine provider and then seen in [facility] on 04/27 and advised to [...] 1,000 mg by mouth five times daily. [id number] ORAL Take by mouth. 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 Her hands hurt her pretty good. Panlobular Emphysema ([facility]) - 04/28/2015 Atrial Fibrillation ([facility]) - 08/19/2014 Comment: afib 2012. Had cardioversion [...] breath. Negative for apnea, cough, choking, chest tightness,wheezing and stridor. Cardiovascular: Negative. Gastrointestinal: Positive for [...] epigastric area. There is no right CVA tenderness,left CVA tenderness, guarding or rebound. Negative signs [...] on the CT of chest done at [facility]. We will have her schedule for a barium swallow and she needs to get set up to see GI/Dr. Rider to discuss a possible scope in light of her history of Moses's esophagus. She is already on omeprazole and Carafate, had adverse reactions to H2 blockers.Advised small frequent meals, continue to sleep with head up right, limit forward bending and tightfitting clothing and carbonation and caffeine. We will [...] from today's visit and in agreement with treatmentplan. Questions answered. Agrees to call the office [...] as well as compliance with taking medications. Age- appropriate health preventative measures were discussed. Return if symptoms worsen or fail to improve, for Keep next scheduled appointment.. Hodan Stevens APRN-ANITHA documented in this encounterK[facility]12-17-2022 History of Present illness Narrative* Tamica Carson APRN.CNP - 04/27/2022 12:12 PM EST Called to triage patient by PSS staff Patient presents with complaints of abdominal pain with distention. +trouble breathing Patient had mid abdominal TTP, Slight distention noted Discussed that additional imaging is needed, that is not available. Referred to ED Amicable documented in this encounterK[facility]12-09-2022 Miscellaneous Notes* Telephone Encounter - Tamanna Cordova Ma - 04/19/2022 3:48 PM EST Patient notified. * Telephone Encounter - Tamanna Cordova Ma - 04/19/2022 3:48 PM EST ----- Message from Minerva Shaver MD sent at 04/19/2022 1:43 PM EST ----- Chest xr is normal. documented in this encounterKet[facility]12-08-2022 History of Present illness Narrative* Alanna Dotson RT(R) - 04/18/2022 11:40 AM EST Radiology Service Progress Note PATIENT NAME: Elizabeth Persaud DATE OF SERVICE: April 18, 2022 TIME: 11:38 AM PATIENT IDENTITY VERIFICATION COMPLETED USING TWO (2) IDENTIFIERS: Name and Date of confirmedby patient verbally. FALL SCREENING: Has the patient had 2 falls in the last year or 1 fall with injury or currently using an Ambulatory Assistive Device (Walker, Cane, Wheelchair, Crutches, etc.)? No PATIENT GENDER DATA: Female. status: : No status: NO. PATIENT RELEVANT IMPLANT DATA REVIEWED: Yes RADIOLOGY DEPARTMENT: General X-ray: Exam(s) Completed: Chest X-Ray PERIPHERAL IV DATA: Not applicable SIGNED BY: RT Lion(R) April 18, 2022 11:38 AM documented in this encounterKet[facility]11-11-2022 Miscellaneous Notes* Telephone Encounter - Tamanna Cordova Ma - 03/22/2022 11:07 AM EST Patient notified. * Telephone Encounter - Dianna Ballard APRN.CNP - 03/22/2022 8:43 AM EST I sent in an updated FMLA form for her to return on 03/25 already, but will print a letter as well.Please notify patient this is ready for roller picker. Thank you Dianna Ballard APRN.CNP * Telephone Encounter - Veronica Villar LPN - 03/22/2022 8:35 AM EST Pt called and states she is ready to return to work on Friday03-25-22. Pt requesting a letter thatshe can return to work without restrictions 03-25-22. Please call when this is ready and her sisterwill roller picker for her. Veronica Villar LPN documented in this encounterKettering [facility]11-09-2022 Miscellaneous Notes* Telephone Encounter - Tamanna Cordova Ma - 03/20/2022 2:55 PM EST Spoke with Ramona, new worksheet needing completed and faxed. Paperwork received * Telephone Encounter - Dianna Ballard APRN.CNP - 03/20/2022 2:28 PM EST Please call [employer]. I am the one that filled out FMLA for the pneumonia and CHF I have been seeing patient for. What exactly do they need. Thank you Dianna Ballard APRN.CNP * Telephone Encounter - David Ortiz RN - 03/20/2022 1:58 PM EST [employer] called and is notified of providers message. They voice understanding and reports they will send the message to a multi line claims adjuster. David Babulski, RN * Telephone Encounter - Minerva Shaver MD - 03/20/2022 12:52 PM EST Elizabeth was working with the orthopedist for her FMLA, So I am not sure this message is for me But, that being said, yes I think she should be on leave. Regards, Minerva Shaver MD * Telephone Encounter - David Ortiz RN - 03/20/2022 9:05 AM EST Edwardo from [facility] called in wanting to know if the provider had endorsed the Pt being off work. He wasasking with what restrictions and when did they advise them to have off. The claim # is [id number]. Please call and advise. documented in this encounterKettering [facility]11-07-2022 History of Present illness Narrative* Dianna Ballard, ALUMNI RELATIONS COORDINATOR.BOILERMAKER SHIP - 03/18/2022 2:05 PM EST CC: Patient presents with: Recheck: Follow up HPI Elizabeth Persaud is a 76 year old female who [...] surgery with implants- Dr Jacob Aguilar at [facility] PAST SURGICAL HISTORY OF 07/27/15 cryo ablation, cardiac RPR UMBILICAL HRNA 5 YRS/> REDUCIBLE 07/17/2010 Hernia repair, umbilical >5yr [facility] Dr Manuel Hoover ALLERGIES Cardizem [Diltiazem [...] use every other day for pain/inflammation. Take withfood. oxyCODONE IR (ROXICODONE) 5 mg immediate release [...] 1,000 mg by mouth five times daily. [id number] ORAL Take by mouth. FAMILY HISTORY Problem Relation Age of Onset Hypertension Mother Stroke Mother Coronary Artery Disease Father other (VINCE'S DISEASE) Brother Liver dse, cirrhosis Social History [...] symptoms occur. Patient agreeable to treatment plan. Dianna Ballard APRN.CNP documented in this encounterKet[facility]10-28-2022 Instructions* Patient Instructions* Dianna Ballard APRN.CNP - 03/08/2022 11:34 AM EDT Take omeprazole first thing in the morning 1/2 to 1 hour prior to any other medication. Take antibiotics with food. Can use Tums for any heart burn as directed. documented in this encounterKettering [facility]10-28-2022 History of Present illness Narrative* Dianna Ballard APRN.CNP - 03/08/2022 11:17 AM EDT CC: Patient presents with: Recheck: Follow up pneumonia HPI Elizabeth Persaud is a 76 year old female who presents today for follow up on pneumonia. [facility] and fever noted at a MD appointment on 03/06/22. Had chest xraycompleted showing RML and LLL consolidations and small [...] sweats, no recurrent infections, and no significant changesin weight Respiratory: no cough, no wheezing, no [...] surgery with implants- Dr Jacob Aguilar at [facility] PAST SURGICAL HISTORY OF 07/27/15 cryo ablation, cardiac RPR UMBILICAL HRNA 5 YRS/> REDUCIBLE 07/17/2010 Hernia repair, umbilical >5yr [facility] Dr Manuel Hoover ALLERGIES Cardizem [Diltiazem [...] use every other day for pain/inflammation. Take withfood. oxyCODONE IR (ROXICODONE) 5 mg immediate release [...] 1,000 mg by mouth five times daily. [id number] ORAL Take by mouth. FAMILY HISTORY Problem Relation Age of Onset Hypertension Mother Stroke Mother Coronary Artery Disease Father other (VINCE'S DISEASE) Brother Liver dse, cirrhosis Social History [...] symptoms occur. Patient agreeable to treatment plan. Dianna Ballard APRN.CNP documented in this encounterKet[facility]10-17-2022 Miscellaneous Notes* Telephone Encounter - Alexandra Leonard - 02/25/2022 3:16 PM EDT Patient saw result via my chart. Alexandra Leonard * Telephone Encounter - Alexandra Leonard - 02/25/2022 3:16 PM EDT ----- Message from Minerva Shaver MD sent at 02/25/2022 9:40 AM EDT ----- Please let patient know, her covid and flu, were negative Regards, Minerva Shaver MD documented in this encounterKet[facility]10-14-2022 History of Present illness Narrative* Minerva Shaver MD - 02/22/2022 2:51 PM EDT Reason for Visit Patient presents with: Sore Throat Elizabeth Persaud is a 76 year old female who [...] antibiotic for couple days when the came toher and were in very close contact her. She says that happened on Friday on and Friday she started having symptoms. Some significant sore throat, a little bit of sinusitis. Pain around the frontaland maxillary sinuses and lymph node enlargement in [...] surgery with implants- Dr Jacob Aguilar at [facility] PAST SURGICAL HISTORY OF 07/27/15 cryo ablation, cardiac RPR UMBILICAL HRNA 5 YRS/> REDUCIBLE 07/17/2010 Hernia repair, umbilical >5yr [facility] Dr Manuel Hoover FAMILY HISTORY Problem Relation Age of Onset Hypertension Mother Stroke Mother Coronary Artery Disease Father other (VINCE'S DISEASE) Brother Liver dse, cirrhosis Social History [...] ORAL) CALCIUM CARBONATE/VITAMIN D3 (VITAMIN D-3 ORAL) [id number] ORAL Review of Systems CONSTITUTIONAL: No fevers, [...] K22.7 - OMEPRAZOLE 40 MG CAPSULE,DELAYED RELEASE Minerva Shaver MD documented in this encounterKettering [facility]09-12-2022 History of Present illness Narrative* Minerva Shaver MD - 01/21/2022 12:06 PM EDT Reason for Visit Patient presents with: F/U 3 months Elizabeth Persaud is a 76 year old female who presents here today for Above Complaints.. Health Maintenance SPIROMETRY ALPHA-1 ANTITRYPSIN DEFICIENCY SCREENING COLORECTAL CANCER SCREENING DTAP,TDAP,TD(1 - Tdap) MAMMOGRAM ADVANCE DIRECTIVE DISCUSSION COVID-19 VACCINE(4 - Booster for Moderna series) SHINGRIX VACCINE(3 of 3) INFLUENZA(1) HPI She had a cystocele/enterocele surgery. She does feel pain still, she is struggling with the coccyxand some pressure and irritation in the bladder. [...] surgery with implants- Dr Jacob Aguilar at [facility] PAST SURGICAL HISTORY OF 07/27/15 cryo ablation, cardiac RPR UMBILICAL HRNA 5 YRS/> REDUCIBLE 07/17/2010 Hernia repair, umbilical >5yr [facility] Dr Manuel Hoover FAMILY HISTORY Problem Relation Age of Onset Hypertension Mother Stroke Mother Coronary Artery Disease Father other (VINCE'S DISEASE) Brother Liver dse, cirrhosis Social History [...] ORAL) CALCIUM CARBONATE/VITAMIN D3 (VITAMIN D-3 ORAL) [id number] ORAL Review of Systems CONSTITUTIONAL: No fevers, [...] - DICLOFENAC SODIUM 75 MG TABLET,DELAYED RELEASE Minerva Shaver MD documented in this encounterKet[facility]08-26-2022 Miscellaneous Notes* Telephone Encounter - Mavis Saunders MD - 01/04/2022 3:38 PM EDT Spoke with patient about her concerns. She is having right sided butt pain that is painful to sit. We discussed the nature of her surgery and that this pain is normal and will start to resolve as inflammation decreases and sutures start to dissolve. She said it hurts to sit but she is able to walk.Reports she is having bowel movements but they are small. She is taking tylenol and some motrin. Rep orts the motrin doesn't help. She doesn't like how the oxycodone make her feel so she hasn't taken them. I offered a script for tramadol that she declined. She says she has flexeril at home she wouldlike to try. She is to call us back with any further concerns. She denies heavy vaginal bleeding, fevers, chills. Mavis Saunders MD documented in this encounterKet[facility]08-26-2022 Miscellaneous Notes* Telephone Encounter - Acacia Fernandez RN - 01/04/2022 3:26 PM EDT Called patient verified name and States her [...] hysteropexy Enterocele repair, Posterior colporrhaphy, Perineorrhaphy Cystourethroscopy * Telephone Encounter - Corie Lara RN - 01/04/2022 11:33 AM EDT Patient LVM on nurse triage line stating she is having a lot of pain. Wondering if this is normal. S/p 01/01/2022 Sacrospinous ligament suspension of the uterus/extraperitoneal hysteropexy Enterocele repair, Posterior colporrhaphy, Perineorrhaphy Cystourethroscopy Corie Lara RN January 04, 2022 11:34 AM documented in this encounterKettering [facility]08-19-2022 Miscellaneous Notes* Telephone Encounter - Tamica Rodriguez LPN - 12/28/2021 9:54 AM EDT Per Trinidad Soto CNP she is okay to continue the probiotic. Called patient and made her aware. Tamica Rodriguez LPN * Telephone Encounter - Tamica Rodriguez LPN - 12/28/2021 9:09 AM EDT Called and made patient aware of Eliquis hold instructions. Patient agreeable. Patient did have a question whether she needs to hold her probiotic since she is holding her vitamins? * Telephone Encounter - Tamica Rodriguez LPN - 12/28/2021 8:25 AM EDT Received holding instructions from [facility] for patients Eliquis. Per RENEE Quinn patient is okay to hold Eliquis 3 day prior to surgery. Copy of letter given fto Trinidad Soto CNP and original sent to brazing furnace operator to scan. Tamica Rodriguez LPN documented in this encounterKettering Health [facility]08-18-2022 History of Present illness Narrative* Tamica Craven RDMS - 12/27/2021 9:15 AM EDT Radiology Service Progress Note PATIENT NAME: Elizabeth Persaud DATE OF SERVICE: December 27, 2021 TIME: 10:16 AM PATIENT IDENTITY VERIFICATION COMPLETED USING TWO (2) IDENTIFIERS: Name and Date of confirmedby patient verbally. FALL SCREENING: Has the patient [...] 27, 2021 10:16 AM documented in this encounterKettering Health [facility]08-17-2022 Miscellaneous Notes* Telephone Encounter - Rosalba Davis - 12/26/2021 4:10 PM EDT The patient is aware of the ultrasound appointment tomorrow at [facility]. * Telephone Encounter - Danna Maza - 12/26/2021 11:46 AM EDT LVM to call back to get her in touch with Dr. Pizarro documented in this encounterKettering Health [facility]08-15-2022 History of Present illness Narrative* Irma Adair APRN.BOILERMAKER SHIP - 12/24/2021 9:30 AM EDT This was a telephone visit, including two-way audio in lieu of an in-person visit. The patient provided verbal consent to participate in the telehealth visit. Patient's name and date of verified. DATE OF SERVICE: 12/24/2021 PROBLEM: Elizabeth Persaud presents for pre-op teaching. 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, cystocele, rectocele,incomplete uterovaginal prolapse, overactive bladder SCHEDULED SURGERY AND DATE: ROBOTIC LAPAPORSCOPIC SUPRACERVICAL HYSTERECTOMY REM TUBE(S) / OVARY(S)UTERUS=<250G (N/A) COLPOPEXY LAPAROSCOPIC (N/A) ANTERIOR COLPORRHAPHY REPAIR [...] patient have an advanced directive: No Does [facility] have a copy of the patient's [...] prescribed by anesthesia, internal medicine, surgeon, or FORMULATOR Stop NSAIDs, Aspirin (ASA), vitamins, herbal supplements, [...] jewelry, body piercing, makeup, contacts, lotions, nail thai on fingers, or anything in hair on arrival to surgery Wear low healed shoes and loose fitting clothing Leave all valuables at home or with a family member [facility] to [facility] and [facility] Parking/parking validation on the day prior to surgery Admission[facility]check [facility] Holding area Placement of [...] trial, UTI symptoms reviewed and patient instructed emrias HICKS of any of these symptoms. VAGINAL CARE [...] number given to patient, if after hours patientinstructed to call brazing furnace operator and ask for president celebrity acquistion acrobatic rigger onc resident. Additional teaching as indicated by patient/family learning needs. PATIENT LEARNING EVALUATION & FOLLOW UP PLAN: Patient and/or family express understanding of upcoming surgery, pre-operative preparation, the operative process, and post-operative instructions. Follow up plan: Complete - No need for follow-up Patient has a post-op appointment scheduled: Yes, 02/04/22 Referral (recommentation): None Educator: Irma Adair APRN.CNP [facility] documented in this encounterKettering Health [facility]08-15-2022 History and physical note * Trinidad Soto APRN.CNP - 12/24/2021 8:25 AM EDT HISTORY AND PHYSICAL EXAMINATION SERVICE DATE: 12/24/2021 SERVICE TIME: 8:25 AM PRIMARY CARE PHYSICIAN: Minerva Shaver MD REASON FOR VISIT: Elizabeth Persaud is a 76 year old female who [...] to the requesting physician by way of sharedmedical record or letter. Subjective The patient has [...] a vaginal prolapse. 09/21/2021 Dr. Lee Elizabeth Persaud is a 76 year old female who [...] fevers. Neurological: No history of TIA's, stroke, COMPUTER EQUIPMENT INSTALLER tumor, impaired sensorium, hemiplegia, paraplegia orquadraplegia. No neurological symptoms or problems. Respiratory: +former smoker 2ppd/30 years Positive for: COPD (no rx). Negative for: asthma, pneumonia within 6 weeks and tobacco use. Cardiovascular: Positive for: anticoagulation therapy (Eliquis, following [facility]), atrial fibrillation (controlled on rx), CHF (on rx), DVT/PE (LE, >30 years ago, tx with AC at the time) and hypertension (on rx) Negative for: arrhythmia, CAD, chest pain, congenital heart defect, hyperlipidemia, recent NM, murmur/valvular heart disease, open heart surgery and valve surgery. GI: Positive for: dysphagia (difficulty with pills) and GERD (on rx) Negative for: abdominal pain, hepatitis, irritable bowel syndrome, inflammatory bowel disease, liver disease, nausea, pancreatitis, vomiting and ETOH >2 drinks/day. : Positive for: nephrolithiasis (hx). Negative for: urinary incontinence, renal failure and urinary tract infection. 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 Negative for: vaginal bleeding and [...] surgery with implants- Dr Jacob Aguilar at [facility] PAST SURGICAL HISTORY OF 07/27/15 cryo ablation, cardiac RPR UMBILICAL HRNA 5 YRS/> REDUCIBLE 07/17/2010 Hernia repair, umbilical >5yr [facility] Dr Manuel Hoover FAMILY HISTORY Problem Relation Age of Onset Hypertension Mother Stroke Mother Coronary Artery Disease Father other (VINCE'S DISEASE) Brother Liver dse, cirrhosis Social History [...] use every other day for pain/inflammation. Take withfood. Taking Yes cyclobenzaprine (FLEXERIL) 10 mg tablet [...] Take 0.5 tablets by mouth once daily. TakingYes potassium chloride ER (K-DUR, KLOR-CON) 20 mEq [...] by mouth five times daily. Taking Yes [id number] ORAL Take by mouth. Taking Yes No [...] or any previous visit (from the past 02649 hour(s)). Assessment Atrial fibrillation (HCC) Assessment: hx [...] large neck Non-male patient STOP-Bang Score: 3 [id number] Score: Age: 65-74 Sex: female CHF history: Yes Hypertension history: Yes Stroke/TIA/thromboembolism history: Yes Vascular disease history: No Diabetes history: No [id number] Score: 6 ARISCAT Score: Age: 51-80 Preoperative [...] and consent discussed: yes. Patient / Responsible Republican agrees to proceed: yes Patient / Surrogate agrees to blood products: Yes Prepared for Surgery: optimally prepared for surgery, pending [see comment]. Labs Cardiac clearance and records requested from title curator office, AC letter faxed CONSULTS: Patient does [...] SIGNATURE: Trinidad Soto APRN.CNP PATIENT NAME: Elizabeth Persaud DATE: December 24, 2021 TIME: 8:25 AM PAGER/CONTACT #: documented in this encounterKettering Health [facility]08-15-2022 Instructions* Patient Instructions* Trinidad Soto APRN.CNP - 12/24/2021 8:24 AM EDT PATIENT PREOPERATIVE INSTRUCTIONS Qiana Pizarro MD has scheduled you for your procedure at this surgery center: [facility] [place] Scheduling Office: [phone] --[address] [place] [address]. Please read below carefully for your personalized [...] Procedures: - YOU MUST HAVE A RESPONSIBLE SUPERVISOR WIRE ROPE FABRICATION TAKE YOU HOME. A FRANCHISE MANAGER OR PURSE FRAMER CANNOT BE MADE A RESPONSIBLE SUPERVISOR WIRE ROPE FABRICATION. - We recommend that a responsible person stays with you overnight to take care of you. - You cannot stay in a hotel alone after outpatient surgery. You will not be permitted to have yoursurgery, if you do not have someone to take care of you. Arrival Time for Surgery: - To obtain your arrival time for surgery, call your physician's office the day before your surgery. - If your surgery is scheduled for Friday, call the Friday before. Your surgeon s operating room scheduler will tell you what time to call the office. - If you have not reached the departmental operating room scheduler by 5 P.M., call [phone] after 5 P.M. the day before your surgery. Please be aware that emergency situations arise, which may delay or change your surgical time. If this happens, we will notify you as soon as possible and regret any inconvenience. If you already have an Advance Directive, please fax a copy to [phone] or email to for it to be added to your chart. If you do not have an Advance Directive, you can find the appropriate form and more information at [email or web address]. We recommend that youcomplete the Advance Directive form found on the website and bring it with you the day of your surgery. It can be witnessed and scanned into your chart that day. Trinidad Soto APRN.ANITHA documented in this encounterKettering [facility]08-02-2022 Miscellaneous Notes* Telephone Encounter - Candida Williamson RN - 12/11/2021 3:54 PM EDT Letter written requesting cardiac clearance and anticoagulation recommendations sent to Dr. Cheung at fax# below. Confirmation received. * Telephone Encounter - David Longo RN - 12/11/2021 2:[address] Ibarra's office and spoke with [...] days prior to her surgery. The patient's title curator's contact information is: Dr[facility] Ibarra with [facility] Routing to Dr. Pizarro to advise. * Telephone Encounter - Tiff Christine - 12/11/2021 2:05 PM EDT Patient has appointment and needs forms to be cleared for surgery faxed to office of Dr. Ibarra [facility]. documented in this encounterKettering Health [facility]07-29-2022 History of Present illness Narrative* Qiana Pizarro MD - 12/07/2021 10:00 AM EDT TeleHealth - Follow-up Visit I have discussed the risks, benefits, and limitations of receiving care virtually with the patient.The patient expresses understanding and is willing to move forward. Elizabeth Persaud is a 76 year old (FAVD x [...] - Stage III / IV Cervix / Perry - Normal support POP-Q: Prolapse Noted: Yes [...] patient was offered a surgery/procedure at a [facility] facility. The surgeon/proceduralist and patient have discussed in detail the risk of exposure to and/or potential harm posed by the COVID-19 virus with having a surgery/procedure at this time versus the risk of delaying the surgery/pr ocedure. It is not possible to know either the risk of delaying the surgery or procedure or chance of getting an infection with perfect accuracy, but a joint decision was made between the patient andthe surgeon/proceduralist to proceed at this time with the scheduled surgery/procedure as indicatedon the consent form. Risks, benefits and alternatives to surgical management were discussed including but not limited to: bleeding, infection (most commonly UTI), pain, recurrence or non-resolution of symptoms (15% if incontinence procedure, 20% for agdaagux tissue repair, 5-15% if sacrocolpopexy), urinary retention (1-3% requiring intervention if incontinence procedure), complications from mesh if placed (3% if midurethral sling, 5% if sacrocolpopexy), vaginal scarring causing dyspareunia or pain, possible exploratory laparotomy, risk of prolonged Sherman catheterization, damage to surrounding organs, anesthetic complications, postoperative complications, or even the unlikely risk of Pertinent surgical history: Cholecystectomy 10/2016 Conization of cervix Bilateral tubal ligation Oophorectomy and umbilical hernia repair 2010 Pain control: Motrin and tylenol ATC, oxycodone #5 for BTP Other Medications Colace 100mg BID Miralax daihudson Send prescriptions to [facility] on day of surgery Labs: H/H: 12.4/37.6 (12/24/2021) Cr: 0.69 (12/24/2021) Voiding plan: Plan for voiding trial after surgery. Pt counseled that if she fails trial of void, she would go home with sherman catheter and return in 2-3 days for another voiding trial. Other concerns: Had a long discussion with patient regarding surgical plan. When she presented to office, had previously been counseled for a hysterectomy and sacrocolpopexy, Counseled pt that no uterine prolapse orapical prolapse noted on exam and pt has large enterocele and rectocele. Given that she is on Eliquis for A-fib and has had multiple abdominal surgeries, would recommend least invasive approach with v aginal agdaagux tissue repair. Patient understands that there is a risk of recurrence and reoperationand could plan to perform mesh sacrocolpopexy in the future. Also discussed that if she ever neededa robotic sacrocolpopexy, would order defecography, anorectal manometry [...] HCPs (not separately reported). documented in this encounterKettering Health [facility]06-08-2022 Miscellaneous Notes* Telephone Encounter - Tamanna Cordova Ma - 10/17/2021 8:25 AM EDT Letter printed and taken to Medical Records. * Telephone Encounter - Olga Lidia Lima RN - 10/15/2021 7:27 PM EDT Patient returned call. She says she will go back to work on 10/16 and will need a printed copy of the first letter Dianna wrote so she can take it to her employer. She can pick it up in Medical Records Dept. Would like to pick it up tomorrow. Olga Lidia Lima RN * Telephone Encounter - David Ortiz RN - 10/15/2021 12:53 PM EDT Called and left a voicemail for the Patient to call back and ask for a nurse to receive the providers message. David Ortiz RN * Telephone Encounter - Dianna Ballard APRN.CNP - 10/15/2021 12:47 PM EDT I absolutely can, but when does she need the letter dated to start? With her appointment on 10/10 or earlier? Let her know once I have this information, I will fill it out and it will be in her mychart. Thank you Dianna Ballard APRN.CNP * Telephone Encounter - David Ortiz RN - 10/15/2021 11:32 AM EDT Pt called and is notified of providers message. Pt reports she wasn't suppose to go back to work until 10/17/21. Pt asking if provider could write letter for this date. David Ortiz RN * Telephone Encounter - Dianna Ballard APRN.CNP - 10/15/2021 11:09 AM EDT I have reviewed Dr. Hong note and put a letter in her chart, please let patient know this is completed and if pain does not improve I would recommend getting re-evaluated. Thank you Dianna Ballard APRN.CNP * Telephone Encounter - Felicitas Prince LPN - 10/15/2021 8:38 AM EDT Patient is needing a letter for today. She is having pain in her hip today and not able to go to work.Pt is requesting a letter be put in her my chart so that she may give to her employer. 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 Take withfood. pantoprazole DR (PROTONIX) 40 mg tablet Take [...] 1,000 mg by mouth five times daily. [id number] ORAL Take by mouth. No current facility-administered [...] external genitalia normal, normal Bartholin's glands, urethra, [place]'s glands, no vulvar lesions, normal appearing perineal [...] which included preparing to see the patient, [id number] patient care, completing clinical documentation, obtaining and/or reviewing separately obtained history, performing a medically appropriate examination and counseling and educating the patient/family/caregiver Lindsay Lee MD documented in this encounterK[facility]04-29-2022 Miscellaneous Notes* Telephone Encounter - Tamanna Cordova Ma - 09/07/2021 1:02 PM EDT Patient notified. She had just left Pain Management having injection in the neck and in office theygave her some honey grahams to eat. * Telephone Encounter - Dianna Ballard APRN.CNP - 09/07/2021 7:49 AM EDT Please let patient know that lab work overall is normal. Her blood sugar was elevated, was this a fasting sample? If it was a fasting sample, we need to do a HgbA1c to further evaluate for diabetes. Thank you Dianna Ballard APRN.CNP documented in this encounterK[facility]12-22-2021 History of Present illness Narrative* Alanna Dotson, RT(R) - 05/02/2021 9:30 AM EST Radiology Service Progress Note PATIENT NAME: Elizabeth Persaud DATE OF SERVICE: May 02, 2021 TIME: 9:21 AM PATIENT IDENTITY VERIFICATION COMPLETED USING TWO (2) IDENTIFIERS: Name and Date of confirmedby patient verbally. FALL SCREENING: Has the patient had 2 falls in the last year or 1 fall with injury or currently using an Ambulatory Assistive Device (Walker, Cane, Wheelchair, Crutches, etc.)? No PATIENT GENDER DATA: Female. status: : No status: NO. PATIENT RELEVANT IMPLANT DATA REVIEWED: Yes RADIOLOGY DEPARTMENT: General X-ray: Exam(s) Completed: Lower Extremity X- Ray(s): Foot, Right and Wt. Bearing PERIPHERAL IV DATA: Not applicable SIGNED BY: RT Lion(R) May 02, 2021 9:21 AM documented in this encounterK[facility]09-07-2021 History of Present illness Narrative* Alanna Dotson RT(R) - 01/16/2021 4:00 PM EDT Radiology Service Progress Note PATIENT NAME: Elizabeth Persaud DATE OF SERVICE: January 16, 2021 TIME: 3:55 PM PATIENT IDENTITY VERIFICATION COMPLETED USING TWO (2) IDENTIFIERS: Name and Date of confirmedby patient verbally. FALL SCREENING: Has the patient had 2 falls in the last year or 1 fall with injury or currently using an Ambulatory Assistive Device (Walker, Cane, Wheelchair, Crutches, etc.)? No PATIENT GENDER DATA: Female. status: : No status: NO. PATIENT RELEVANT IMPLANT DATA REVIEWED: Yes RADIOLOGY DEPARTMENT: General X-ray: Exam(s) Completed: Spine X-Ray(s): Cervical AP / LAT / OBL PERIPHERAL IV DATA: Not applicable SIGNED BY: RT Lion(R) January 16, 2021 3:55 PM documented in this encounterK[facility]01-25-2021 History of Present illness Narrative* Alanna Dotson (Rt), [facility] - 06/05/2020 5:20 PM EST Radiology Service Progress Note PATIENT NAME: Elizabeth Persaud DATE OF SERVICE: June 05, 2020 TIME: 5:18 PM PATIENT IDENTITY VERIFICATION COMPLETED USING TWO (2) IDENTIFIERS: Name and Date of confirmedby patient verbally. FALL SCREENING: Has the patient had 2 falls in the last year or 1 fall with injury or currently using an Ambulatory Assistive Device (Walker, Cane, Wheelchair, Crutches, etc.)? No PATIENT GENDER DATA: Female. status: : No status: NO. PATIENT RELEVANT IMPLANT DATA REVIEWED: Yes RADIOLOGY DEPARTMENT: General X-ray: Exam(s) Completed: Lower Extremity X- Ray(s): Ankle, Left and Foot, Left: PERIPHERAL IV DATA: Not applicable SIGNED BY: RT Lion June 05, 2020 5:18 PM documented in this encounterK[facility]07-13-2016 History of Past illness Narrative* Problem [...] of this encounter (statuses as of 09/07/2021) [facility] Narrative* Problem [...] of this encounter (statuses as of 09/21/2021) [facility] Narrative* Problem [...] of this encounter (statuses as of 10/17/2021) [facility] Narrative* Problem [...] of this encounter (statuses as of 11/12/2021) [facility] Narrative* Problem [...] of this encounter (statuses as of 12/11/2021) [facility] Narrative* Problem [...] of this encounter (statuses as of 12/24/2021) [facility] Narrative* Problem [...] of this encounter (statuses as of 12/24/2021) [facility] N[facility]ative* Problem [...] of this encounter (statuses as of 12/28/2021) [facility] Narrative* Problem [...] of this encounter (statuses as of 12/28/2021) [facility] Narrative* Problem [...] of this encounter (statuses as of 12/30/2021) [facility]* Problem [...] of this encounter (statuses as of 01/04/2022) [facility] Narrative* Problem [...] of this encounter (statuses as of 01/04/2022) [facility] Narrative* Problem [...] of this encounter (statuses as of 01/21/2022) [facility] Narrative* Problem [...] of this encounter (statuses as of 02/06/2022) [facility]* Problem [...] of this encounter (statuses as of 02/22/2022) [facility]arr[facility]* Problem [...] of this encounter (statuses as of 02/25/2022) [facility]arr[facility]* Problem [...] of this encounter (statuses as of 03/08/2022) [facility]arr[facility]* Problem [...] of this encounter (statuses as of 03/18/2022) [facility]* Problem [...] of this encounter (statuses as of 03/20/2022) [facility]* Problem [...] of this encounter (statuses as of 03/22/2022) [facility]* Problem [...] of this encounter (statuses as of 04/19/2022) [facility]* Problem [...] of this encounter (statuses as of 04/27/2022) [facility]* Problem [...] of this encounter (statuses as of 04/29/2022) [facility]* Problem [...] of this encounter (statuses as of 04/30/2022) [facility]* Problem [...] of this encounter (statuses as of 05/01/2022) [facility]* Problem [...] of this encounter (statuses as of 05/15/2022) [facility]* Problem [...] of this encounter (statuses as of 05/17/2022) [facility]* Problem [...] of this encounter (statuses as of 05/18/2022) [facility]* Problem [...] of this encounter (statuses as of 05/21/2022) [facility]* Problem [...] of this encounter (statuses as of 05/23/2022) [facility]* Problem [...] of this encounter (statuses as of 05/23/2022) [facility]* Problem [...] of this encounter (statuses as of 05/23/2022) [facility] Problem [...] of this encounter (statuses as of 06/08/2022) [facility]* Problem [...] of this encounter (statuses as of 06/08/2022) [facility]* Problem [...] of this encounter (statuses as of 06/17/2022) [facility]* Problem [...] of this encounter (statuses as of 06/19/2022) [facility]* Problem [...] of this encounter (statuses as of 07/04/2022) [facility]* Problem [...] of this encounter (statuses as of 07/08/2022) [facility]* Problem [...] of this encounter (statuses as of 07/21/2022) [facility] Problem [...] of this encounter (statuses as of 07/25/2022) [facility]* Problem [...] of this encounter (statuses as of 08/09/2022) [facility]* Problem [...] of this encounter (statuses as of 08/30/2022) [facility] Problem [...] of this encounter (statuses as of 09/05/2022) [facility] Problem [...] of this encounter (statuses as of 10/15/2022) [facility] Problem [...] of this encounter (statuses as of 10/31/2022) [facility]* Problem [...] of this encounter (statuses as of 12/13/2022) [facility]* Problem [...] of this encounter (statuses as of 12/13/2022) [facility]* Problem [...] of this encounter (statuses as of 12/27/2022) [facility]* Problem [...] of this encounter (statuses as of 12/27/2022) [facility]* Problem [...] of this encounter (statuses as of 12/31/2022) [facility]* Problem [...] of this encounter (statuses as of 01/04/2023) [facility] Problem [...] of this encounter (statuses as of 01/17/2023) [facility]* Problem [...] of this encounter (statuses as of 01/24/2023) [facility]* Problem [...] of this encounter (statuses as of 01/27/2023) [facility]* Problem [...] of this encounter (statuses as of 01/28/2023) [facility] Problem [...] of this encounter (statuses as of 01/28/2023) [facility] Problem [...] of this encounter (statuses as of 02/15/2023) [facility]* Problem [...] of this encounter (statuses as of 02/23/2023) [facility]* Problem [...] of this encounter (statuses as of 03/03/2023) [facility]* Problem [...] of this encounter (statuses as of 03/04/2023) [facility]* Problem Noted Date Diagnosed Date Resolved Date Encounter for colonoscopy du e to history of adenomatous colonic polyps 11/22/2015 11/22/2015 Msoes's esophagus determined by biopsy 11/22/2015 11/22/2015 Panlobular [...] of this encounter (statuses as of 03/05/2023) [facility]* Problem [...] of this encounter (statuses as of 03/06/2023) [facility]* Problem [...] of this encounter (statuses as of 03/16/2023) [facility]* Problem [...] of this encounter (statuses as of 03/16/2023) [facility]* Problem [...] of this encounter (statuses as of 03/16/2023) [facility]* Problem [...] Tobacco use disorder 07/16/2006 016 Overview: Quit 8- documented as of this encounter (statuses as of 03/16/2023) [facility]* Problem [...] of this encounter (statuses as of 03/18/2023) [facility]* Problem [...] of this encounter (statuses as of 03/24/2023) [facility]* Problem [...] of this encounter (statuses as of 03/25/2023) [facility]arrative* Problem [...] of this encounter (statuses as of 04/01/2023) [facility]* Problem [...] Tobacco use disorder 07/16/2006 016 Overview: Quit 8- documented as of this encounter (statuses as of 04/11/2023) [facility]* Problem [...] of this encounter (statuses as of 05/02/2023) [facility]* Problem [...] of this encounter (statuses as of 06/30/2023) [facility]* Problem [...] as of this encounter (statuses as of 07/14/2023) [facility]* Problem [...] Tobacco use disorder 07/16/2006 016 Overview: Quit 8- documented as of this encounter (statuses as of 07/14/2023) [facility]* Problem [...] as of this encounter (statuses as of 08/04/2023) [facility]* Problem [...] as of this encounter (statuses as of 08/19/2023) [facility] Problem [...] as of this encounter (statuses as of 08/20/2023) [facility] August 11, 2022 10:34am Note Date/Time August 11, 2022 10:2 9am [facility] Medical Records Department [address] [place] [address] Instructions for Home/Discharge Instructions 08/11/22 1027 MR#: [id number] Acct: [id number] Name: ELIZABETH PERSAUD Rep #:[id number] : 1945 77 From: Farhad Hall DO PCP: Dr. Minerva Shaver MD Status:ADM I N Discharge Instructions Diet Discharge Diet: No restrictions Activity Discharge Activity: Return to Normal Activity Return to work on:: 08/11/22 (Patient was admitted from 08/08-08/11/2022. She may return to work with no restrictions. ) Dressing / Incision Call your doctor if you observe: Shortness of breath, Increased palpitations (irregular heartbeat) and - (unilateral weakness) Follow Up Care Test Results: Test results from this visit will be discussed in further detail at your follow- up appointment, if applicable. Discharge Plan Admission Admit Date/Time: 08/08/22 18:03 Primary Reason for Your Visit: CVA Attending Provider: Farhad Hall Primary Care Provider: Minerva Shaver Discharge Orders/Prescriptions Prescriptions: Continued melatonin 3 mg capsule 3 mg PO HS calcium carbonate 500 mg calcium (1,250 mg) tablet 500 mg PO DAILY sucralfate 1 gram tablet 1 g PO QACHS cyclobenzaprine 10 mg tablet 10 mg PO HS PRN (Reason: muscle spasm) famotidine 20 mg tablet 20 mg PO BID Label Comments: Take 1 tablet by mouthUtwice daily. multivitamin with folic acid 1 TABLET tablet 1 tab PO DAILY Label Comments: VITAMIN furosemide 40 mg tablet 40 mg PO DAILY Qty: 90 3RF apixaban 5 mg tablet 5 mg PO BID Qty: 180 3RF valsartan 40 mg tablet 40 mg PO DAILY Hold Instructions: Low blood pressure potassium chloride 20 mEq tablet,ER particles/crystals 20 meq PO DAILY Qty: 180 3RF Discontinued metoprolol succinate 50 mg tablet extended release 24 hr 100 mg PO BID Qty: 30 6RF Referrals / Follow Up: [facility] [Provider Group] - Within 1 Month [facility] [Provider Group] - Within 2 Weeks Minerva Shaver MD [Primary Care Provider] - Within 1 Week Disposition Disposition (needs filled in before D/C Order can be placed): Home, Self Care 08/11/22 1034<Electronically signed by Farhad Hall DO>Farhad Hall DO CC: Dr. Minerva Shaver MD ~ Signed [facility] Work Phone: Discharge summary Author Dr. Hall [facility] August 11, 2022 10:39am Note Date/Time August 11, 2022 10:3 9am [facility] Medical Records Department [address] [place] [id number] Discharge Summary 08/11/22 1034 MR#: [id number] Acct: [id number] Name: ELIZABETH PERSAUD Rep #:[id number] : 1945 77 From: Farhad Hall DO PCP: Dr. Minerva Shaver MD Status:ADM I N Location: [place] [address] Providers Date of Admission: 08/08/22 Primary Care Physician: Dr. 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 Concerning that pt did indeed have a CVA given symptomatology. [facility] teleneurology consulted. He did not appreciate any left facial droop nor upper extremity weakness (which are improved), but when he spoke to me that she indeed have these early, he seem dismissive of these concerns and would not say that she had a CVA (I even reminded him that she has afib). I feel the neurologist was anchored on the LLE and not open to discussing other possibilities given her known risk factors. Pt to follow up with neurology. Defer NCT/EMG, T and L spine MRIs as outpt unless new Sx arise. Pt does not want to take ASA nor statin, the latter, particularly since her lipid panel was unremarkable. (2) Bradycardia, sinus, persistent, severe: Status: Acute Code(s): R00.1 - Bradycardia, unspecified Plan: Improved, but ongoing. Patient was supposed to be taking metoprolol succinate 50 twice a day but was taking 100 twice a day in addition to flecainide. Previously discussed with Dr. Ibarra, who recommends holding the metoprolol succinate and flecainide for now and then to resume it, assuming her heart rate is better, add metoprolol succinate 50 twice daily and flecainide 100 twice daily. Though the patient later stated that she took metoprolol succinate 50 BID, not 100 on JUL. So, will decrease to 50 daily when appropriate. Flecanide had been ordered, but not given given low heart rate. Continue to hold metoprolol succinate and flecanide. DW Dr. Lynne on 08/11. Explained that she is sinus ria for the past serveral days despite holding flecanide and metopon. He is ok with holding these medications. Patient to follow up with cardiology. She has a heart rate monitor on her watch and if it sustaining fast, she is advized to call. Plan Other chronic conditions * Paroxysmal atrial fibrillation: Flecainide metoprolol being held for now. Continue with apixaban * Hypertension: Fair control at this time. We will hold off on the furosemide for now VTE prophylaxis: Not indicated as patient is already anticoagulated. Disposition: To be determined. pending HR as still bradycardic. Medications at Discharge Home Medications multivitamin with folic acid 400 mcg tablet 1 tab PO DAILY supplement 03/15/13 melatonin 3 mg capsule 3 mg PO HS Check with primary doctor 01/19/21 calcium carbonate 500 mg calcium (1,250 mg) tablet 500 mg PO DAILY Check with primary doctor 06/25/21 furosemide 40 mg tablet 40 mg PO DAILY #90 tabs 08/31/21 sucralfate 1 gram tablet 1 g PO QACHS Check with primary doctor 05/07/22 apixaban 5 mg tablet 5 mg PO BID #180 tabs 06/14/22 valsartan 40 mg tablet 40 mg PO DAILY pt only taking 1/2 pill, ord by Dr. Shaver 07/11/22 cyclobenzaprine 10 mg tablet 10 mg PO HS PRN muscle spasm 07/25/22 famotidine 20 mg tablet 20 mg PO BID Check with primary doctor 07/25/22 potassium chloride 20 mEq tablet,extended release(part/cryst) 20 meq PO DAILY #180 tabs 07/25/22 Hospital Course Operations None Procedures 2-D Echocardiogram Summary of Care Provided Minutes Spent on Discharge: 32 Physical Exam Const alert and no apparent distress Neuro Neuro Narrative: abnormal gait due to leg-length disparity. Stable ambulation. Motor Exam: strength 5/5 throughout Weight / BMI Weight Weight: 61.326 kg Body Mass Index (BMI) 25.5 ABG / Lab / Microbiology Data Result Diagrams: 08/08/22 16:20 08/09/22 03:49 D/C Instructions Discharge Diet: No restrictions Return to work on: 08/11/22 (Patient was admitted from 08/08-08/11/2022. She may return to work with no restrictions. ) Call your doctor if you observe: Shortness of breath, Increased palpitations (irregular heartbeat) and - (unilateral weakness) Meaningful Use Info Meaningful Use Diagnoses (Choose all that apply): Ischemic CVA CVA Therapy Assessed for PT,OT and/or ST?: Yes Ischemic Stroke Antithrombotic order at d/c?: No Reason antithrombotic not ordered: Drug Declined by Patient Dx of Atrial fib/flutter?: Yes Anticoagulant at discharge?: Yes Statins at discharge?: No Reason Statin not ordered: Drug Declined by Patient Primary Dx Acute Ischemic CVA?: Yes IV thrombolytic ordered during stay?: No Reason IV thrombolytic not ordered: Procedure not Indicated Discharge Plan Admission Admit Date/Time: 08/08/22 18:03 Primary Reason for Your Visit: CVA Attending Provider: Farhad Hall Primary Care Provider: Minerva Shaver Instructions Additional Instructions / Restrictions: Call physician if your heart rate maintains over 100 bpm or if your experiencingsymptoms (palpitations, shortness of breath, chest pain) Discharge Orders/Prescriptions Prescriptions: Continued melatonin 3 mg capsule 3 mg PO HS calcium carbonate 500 mg calcium (1,250 mg) tablet 500 mg PO DAILY sucralfate 1 gram tablet 1 g PO QACHS cyclobenzaprine 10 mg tablet 10 mg PO HS PRN (Reason: muscle spasm) famotidine 20 mg tablet 20 mg PO BID Label Comments: Take 1 tablet by mouthUtwice daily. multivitamin with folic acid 1 TABLET tablet 1 tab PO DAILY Label Comments: VITAMIN furosemide 40 mg tablet 40 mg PO DAILY Qty: 90 3RF apixaban 5 mg tablet 5 mg PO BID Qty: 180 3RF valsartan 40 mg tablet 40 mg PO DAILY Hold Instructions: Low blood pressure potassium chloride 20 mEq tablet,ER particles/crystals 20 meq PO DAILY Qty: 180 3RF Discontinued metoprolol succinate 50 mg tablet extended release 24 hr 100 mg PO BID Qty: 30 6RF Referrals / Follow Up: [facility] [Provider Group] - Within 1 Month [facility] [Provider Group] - Within 2 Weeks Minerva Shaver MD [Primary Care Provider] - Within 1 Week Disposition Disposition (needs filled in before D/C Order can be placed): Home, Self Care Charges/Coding Visit Charges Inpatient E&M: 37940 Disch Hosp >30min 08/11/22 1039 <Electronically signed by Farhad Hall DO> Cosigner Signature (if applicable): CC: Dr. Minerva Shaver MD; Dr. Maxim Ibarra MD; Dr. Farhad Hall DO~ Signed [facility] Work Phone: Evaluation note* Diagnosis 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- Primary documented in this encounter [facility] note* Diagnosis Encounter for screening mammogram for breast cancer documented in this encounter [facility] note* Diagnosis Pre-operative examination- Primary Preoperative examination, [...] Hypertonicity of bladder [facility]* Diagnosis Educational circumstance- Primary 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 Cystocele, midline Rectocele Incomplete uterovaginal prolapse Uterovaginal prolapse, incomplete Preoperative examination Preoperative examination, unspecified Overactive bladder Hypertonicity of bladder documented in this encounter [facility] note* Diagnosis Onset Date Resolution Status Internal impingement of both shoulders acute Pain of right sternoclavicular joint acute Chronic diastolic (congestive) heart failure chronic Paroxysmal atrial fibrillation [facility] Work Phone: Evaluation note* Diagnosis 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 Cystocele, midline Rectocele Incomplete uterovaginal prolapse Uterovaginal prolapse, incomplete Preoperative examination Preoperative examination, unspecified Overactive bladder Hypertonicity of bladder 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 Cystocele, midline Rectocele Incomplete uterovaginal prolapse Uterovaginal prolapse, incomplete Preoperative examination Preoperative examination, unspecified Overactive bladder Hypertonicity of bladder documented in this encounter [facility] note* Diagnosis Incomplete uterovaginal prolapse- Primary Uterovaginal prolapse, incomplete Cystocele, midline 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 Rectocele Preoperative examination Preoperative examination, unspecified Overactive bladder Hypertonicity of bladder 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 Cystocele, midline Rectocele Incomplete uterovaginal prolapse Uterovaginal prolapse, incomplete Preoperative examination Preoperative examination, unspecified Overactive bladder Hypertonicity of bladder documented in this encounter [facility]* Diagnosis Congestive heart failure, unspecified HF chronicity, unspecified heart failure type (HCC)- Primary Need for influenza vaccination Need for prophylactic vaccination and inoculation against influenza Frequency of urination Urinary frequency Primary hypertension Unspecified essential hypertension Generalized arthritis Urinary tract infection without hematuria, site unspecified documented [facility] this encounter [facility]* Diagnosis Sore throat- Primary Acute pharyngitis Chills with fever Fever, unspecified 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 Moses's esophagus documented in this encounter [facility] note* Diagnosis Pneumonia due to infectious organism, unspecified laterality, unspecified part of lung- Primary Congestive heart failure, unspecified HF chronicity, unspecified heart failure type (HCC) Gastroesophageal reflux disease, unspecified whether esophagitis present documented in this encounter [facility]* Diagnosis Onset Date Resolution Status Chronic diastolic (congestive) heart failure chronic Paroxysmal atrial fibrillation chronic Internal impingement of both shoulders acute Pain of right sternoclavicular joint acute SOB (shortness of breath) ac [place] URI (upper respiratory infection) acute [facility] Work Phone: Evaluation note* Diagnosis Pneumonia due to infectious organism, unspecified laterality, unspecified part of lung- Primary documented in this encounter [facility] note* Diagnosis Onset Date Resolution Status Internal impingement of both shoulders acute Pain of right sternoclavicular joint acute SOB (shortness of breath) ac [place] URI (upper respiratory infection) acute 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 Moses's esophagus Encounter for therapeutic drug monitoring Atrial fibrillation, unspecified type (HCC) documented in this encounter [facility]* Diagnosis Elevated LFTs- Primary Other abnormal blood chemistry documented in this encounter [facility] note* Diagnosis Shortness of breath- Primary Fever, unspecified fever cause Other fatigue Elevated liver enzymes Other nonspecific abnormal serum enzyme levels Decreased appetite Anorexia Foul smelling urine Other nonspecific finding on examination of urine Dysphagia, unspecified type Hiatal hernia with GERD without esophagitis 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 Moses's esophagus Bilateral lower extremity edema Edema documented in this encounter [facility] note* Diagnosis Fever, unspecified fever cause- Primary Hiatal hernia with GERD without esophagitis documented in this encounter [facility] note* Diagnosis Epigastric pain- Primary Abdominal pain, epigastric Hiatal hernia with GERD without esophagitis Bowel habit changes Other symptoms involving digestive system Other fatigue Nausea Nausea alone Fever, unspecified fever cause documented in this encounter [facility] note* Diagnosis Personal history of colonic polyps- Primary Hiatal hernia with GERD without esophagitis Dysphagia, unspecified type Incisional hernia, without obstruction or gangrene Incisional hernia without mention of obstruction or gangrene documented in this encounter [facility] note* Diagnosis Abdominal pain, unspecified abdominal location- Primary Other fatigue Fever, unspecified fever cause Chills Chills (without fever) Vitamin B12 deficiency Other B-complex deficiencies Vitamin D deficiency Unspecified vitamin D deficiency documented in this encounter [facility] note* Diagnosis Congestive heart failure, unspecified HF chronicity, unspecified heart failure type (HCC)- Primary Atrial fibrillation, unspecified type (HCC) Primary hypertension Unspecified essential hypertension documented in this encounter [facility] note* Diagnosis Onset Date Resolution Status Internal impingement of both shoulders acute [facility] Work Phone: Evaluation note* Diagnosis Incisional hernia, without obstruction or gangrene- Primary Incisional hernia without mention of obstruction or gangrene Dysphagia, unspecified type Hiatal hernia with GERD without esophagitis Personal history of colonic polyps documented in this encounter [facility] note* Diagnosis PAD (peripheral artery disease) (HCC)- Primary Peripheral vascular disease, unspecified documented in this encounter [facility] note* Diagnosis Onset Date Resolution Status Internal impingement of both shoulders acute SOB (shortness of breath) [place] Chronic diastolic (congestive) heart failure chronic Paroxysmal atrial fibrillation chronic 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 Work Phone: Evaluation note* Diagnosis Onset Date Resolution Status Internal impingement of both shoulders acute SOB (shortness of breath) [place] Chronic diastolic (congestive) heart failure chronic Paroxysmal atrial fibrillation chronic Acute stroke due to ischemia acute Bradycardia, sinus, persistent, severe acute Left-sided weakness acute Chronic diastolic (congestive) heart failure chronic residential (current) use of anticoagulants 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 Work Phone: Evaluation note* Diagnosis Peripheral arterial disease (HCC)- Primary Peripheral vascular disease, unspecified documented in this encounter [facility]* Diagnosis Lumbar spondylosis- Primary Lumbosacral spondylosis without myelopathy TIA (transient ischemic attack) Unspecified transient cerebral ischemia documented in this encounter [facility] note* Diagnosis TIA (transient ischemic attack) Unspecified transient cerebral ischemia documented in this encounter [facility] note* Diagnosis Peripheral arterial disease (HCC)- Primary Peripheral vascular disease, unspecified documented in this encounter [facility] note* Diagnosis Atrial fibrillation, unspecified type (HCC)- Primary Generalized arthritis Primary hypertension Unspecified essential hypertension Congestive heart failure, unspecified HF chronicity, unspecified heart failure type (HCC) documented in this encounter [facility] note* Diagnosis Onset Date Resolution Status Bradycardia, sinus, persistent, severe resolved Left-sided weakness resolved 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 Work Phone: Evaluation note* Diagnosis Fever, unspecified fever cause- Primary Cough, unspecified type Wheezing Sore throat Acute pharyngitis Bilateral lower extremity edema Edema Congestive heart failure, unspecified HF chronicity, unspecified heart failure type (HCC) [facility]* Diagnosis Left lower quadrant abdominal pain- Primary Right lower quadrant abdominal tenderness without rebound tenderness Bowel habit changes Other symptoms involving digestive system Blood in stool documented in this encounter [facility] note* Diagnosis Right lower quadrant abdominal pain- Primary Abdominal pain, right lower quadrant Left lower quadrant abdominal pain Blood in stool Bowel habit changes Other symptoms involving digestive system Stool mucus Nonspecific abnormal finding in stool contents Dark stools Nonspecific abnormal finding in stool contents documented in this encounter [facility]* Diagnosis Onset Date Resolution Status Internal impingement of both shoulders acute Tear of left rotator cuff [place] 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 Work Phone: Evaluation note* Diagnosis C. 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 Work Phone: Evaluation note* Diagnosis History of recent hospitalization- Primary [...] on supplemental oxygen documented in this encounter [facility] note* Diagnosis Pneumonia due to infectious organism, unspecified laterality, unspecified part of lung- Primary Atrial fibrillation, unspecified type (HCC) Abnormal EKG Nonspecific abnormal electrocardiogram (ECG) (EKG) Congestive heart failure, unspecified HF chronicity, unspecified heart failure type (HCC) documented in this encounter [facility] note* Diagnosis SOB (shortness of breath) Shortness of breath documented in this encounter [facility] note* Diagnosis Stage 3 severe COPD by GOLD classification ([facility])- Primary Acute bronchitis, unspecified organism Former cigarette smoker Personal history of tobacco use, presenting hazards to health Paroxysmal atrial fibrillation (HCC) Atrial fibrillation documented in this encounter [facility] note* Diagnosis Atrial fibrillation, unspecified type ([facility])- Primary Bradycardia Other specified cardiac dysrhythmias Congestive heart failure, unspecified HF chronicity, unspecified heart failure type (HCC) Shortness of breath Recurrent pneumonia Pneumonia, organism unspecified Subacute cough Cough On home oxygen therapy Dependence on supplemental oxygen History of recent hospitalization Personal history of unspecified disease Acute pain of right shoulder Fall, initial encounter [facility]* Diagnosis Onset Date Resolution Status 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 Work Phone: Evaluation note* Diagnosis Primary hypertension- Primary Unspecified essential hypertension Chronic congestive heart failure, unspecified heart failure type (HCC) Chronic obstructive pulmonary disease, unspecified COPD type (HCC) Paroxysmal atrial fibrillation (HCC) Atrial fibrillation Encounter for immunization Need for other specified prophylactic vaccination against single bacterial disease documented [facility] this [facility]* Diagnosis Paroxysmal atrial fibrillation (HCC)- Primary Atrial fibrillation Chronic obstructive pulmonary disease with acute exacerbation (HCC) Obstructive chronic bronchitis with exacerbation History of Clostridium difficile colitis Personal history of other diseases of digestive system Chronic congestive heart failure, unspecified heart failure type (HCC) [facility]* Diagnosis Generalized arthritis [facility]* Diagnosis Chronic obstructive pulmonary disease, unspecified COPD type (HCC)- Primary Generalized arthritis [facility]* Diagnosis Hiatal hernia with GERD without esophagitis Personal history of colonic polyps [facility]* Diagnosis Left lower quadrant abdominal pain Right lower quadrant abdominal tenderness without rebound tenderness Bowel habit changes Other symptoms involving digestive system Blood in stool [facility]* Diagnosis COVID-19 virus infection- Primary [facility]* Diagnosis Acute non-recurrent sinusitis, unspecified location- Primary [facility]* Diagnosis Onset Date Resolution Status Acute exacerbation of CHF (congestive heart failure) resolved Acute respiratory failure with hypoxia resolved GALINA (acute kidney injury) re solved Bilateral lower extremity edema resolved Elevated brain natriuretic peptide (BNP) level resolved 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 Work Phone: Evaluation noteNo assessment information available [facility] Work Phone: Evaluation note* Diagnosis Chronic congestive heart failure, unspecified heart failure type (HCC)- Primary Paroxysmal atrial fibrillation (HCC) Atrial fibrillation Primary hypertension Unspecified essential hypertension History of CVA (cerebrovascular accident) Transient ischemic attack (TIA), and cerebral infarction without residual deficits Thrush Candidiasis of mouth documented [facility]* Diagnosis Generalized arthritis documented in this encounter [facility] note* Diagnosis 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- Primary Moses's esophagus Dysphagia, unspecified type documented in this encounter [facility] note* Diagnosis Onset Date Resolution Status Hamstring muscle strain acut e Left hip pain acute 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 Work Phone: Evaluation note* Diagnosis Dysphagia, unspecified type- Primary documented in this encounter [facility] note* Diagnosis Paroxysmal atrial fibrillation (HCC)- Primary Atrial fibrillation Congestive heart failure, unspecified HF chronicity, unspecified heart failure type (HCC) Primary hypertension Unspecified essential hypertension Chronic obstructive pulmonary disease with acute exacerbation (HCC) Obstructive chronic bronchitis with exacerbation 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 Moses's esophagus Dermatitis Contact dermatitis and other eczema, due to unspecified cause Lipid screening Screening for lipoid disorders documented in this encounter [facility] note* Diagnosis Moderate COPD (chronic obstructive pulmonary disease) (HCC) Chronic airway obstruction, not elsewhere classified documented in this encounter [facility] note* Diagnosis COPD, mild (HCC)- Primary Chronic airway obstruction, not elsewhere classified Former cigarette smoker Personal history of tobacco use, presenting hazards to health documented in this encounter [facility] note* Diagnosis Chronic atrial fibrillation (HCC)- Primary Atrial fibrillation Hospital discharge follow-up Other follow-up examination Annual physical exam- Primary Routine general medical examination at a health care facility Chronic atrial fibrillation (HCC) Atrial fibrillation Essential hypertension with goal blood pressure less than 140/90 Irritable bowel syndrome without diarrhea Irritable bowel syndrome Tear of right rotator cuff, unspecified tear extent Persistent disorder of initiating or maintaining sleep Elevated liver enzymes Other nonspecific abnormal serum enzyme levels Arthritis Arthropathy, unspecified, site unspecified Hospital discharge follow-up- Primary Other follow-up examination Atrial fibrillation, unspecified type (HCC) Panlobular emphysema (HCC) Other emphysema Pre-operative examination- Primary Preoperative examination, unspecified Vaginal [...] HF chronicity, unspecified heart failure type (HCC) Paroxysmal atrial fibrillation (HCC)- Primary Atrial fibrillation Congestive heart failure, unspecified HF chronicity, unspecified heart failure type (HCC) Primary hypertension Unspecified essential hypertension Chronic obstructive pulmonary disease with acute exacerbation (HCC) Obstructive chronic bronchitis with exacerbation [facility]* Diagnosis Chronic atrial fibrillation (HCC)- Primary Atrial fibrillation Hospital discharge follow-up Other follow-up examination Annual physical exam- Primary Routine general medical examination at a [facility] care facility Chronic atrial fibrillation (HCC) Atrial fibrillation Essential hypertension with goal blood pressure less than 140/90 Irritable bowel syndrome without diarrhea Irritable bowel syndrome Tear of right rotator cuff, unspecified tear extent Persistent disorder of initiating or maintaining sleep Elevated liver enzymes Other nonspecific abnormal serum enzyme levels Arthritis Arthropathy, unspecified, site unspecified Hospital discharge follow-up- Primary Other follow-up examination Atrial fibrillation, unspecified type (HCC) Panlobular emphysema (HCC) Other emphysema Pre-operative examination- Primary Preoperative examination, unspecified Vaginal [...] HF chronicity, unspecified heart failure type (HCC) Fever, unspecified fever cause Cough, unspecified type Wheezing documented in this encounter [facility] note* Diagnosis Chronic atrial fibrillation (HCC)- Primary Atrial fibrillation Hospital discharge follow-up Other follow-up examination Annual physical exam- Primary Routine general medical examination at a health care facility Chronic atrial fibrillation (HCC) Atrial fibrillation Essential hypertension with goal blood pressure less than 140/90 Irritable bowel syndrome without diarrhea Irritable bowel syndrome Tear of right rotator cuff, unspecified tear extent Persistent disorder of initiating or maintaining sleep Elevated liver enzymes Other nonspecific abnormal serum enzyme levels Arthritis Arthropathy, unspecified, site unspecified Hospital discharge follow-up- Primary Other follow-up examination Atrial fibrillation, unspecified type (HCC) Panlobular emphysema (HCC) Other emphysema Pre-operative examination- Primary Preoperative examination, unspecified Vaginal [...] heart failure type (HCC) Shortness of breath Subacute cough Cough Recurrent pneumonia Pneumonia, organism unspecified Congestive heart failure, unspecified HF chronicity, unspecified heart failure type (HCC) Fall, initial encounter Acute pain of right [facility] (HCC)- Primary Atrial fibrillation Hospital discharge follow-up Other follow-up examination Annual physical exam- Primary Routine general medical examination at a health care facility Chronic atrial fibrillation (HCC) Atrial fibrillation Essential hypertension with goal blood pressure less than 140/90 Irritable bowel syndrome without diarrhea Irritable bowel syndrome Tear of right rotator cuff, unspecified tear extent Persistent disorder of initiating or maintaining sleep Elevated liver enzymes Other nonspecific abnormal serum enzyme levels Arthritis Arthropathy, unspecified, site unspecified Hospital discharge follow-up- Primary Other follow-up examination Atrial fibrillation, unspecified type (HCC) Panlobular emphysema (HCC) Other emphysema Pre-operative examination- Primary Preoperative examination, unspecified Vaginal [...] HF chronicity, unspecified heart failure type (HCC) Fall, initial encounter Rib tenderness Chest pain, unspecified Acute midline back pain, unspecified back location [facility] Diagnosis Chronic atrial fibrillation (HCC)- Primary Atrial fibrillation Hospital discharge follow-up Other follow-up examination Annual physical exam- Primary Routine general medical examination at a [facility] care facility Chronic atrial fibrillation (HCC) Atrial fibrillation Essential hypertension with goal blood pressure less than 140/90 Irritable bowel syndrome without diarrhea Irritable bowel syndrome Tear of right rotator cuff, unspecified tear extent Persistent disorder of initiating or maintaining sleep Elevated liver enzymes Other nonspecific abnormal serum enzyme levels Arthritis Arthropathy, unspecified, site unspecified Hospital discharge follow-up- Primary Other follow-up examination Atrial fibrillation, unspecified type (HCC) Panlobular emphysema (HCC) Other emphysema Pre-operative examination- Primary Preoperative examination, unspecified Vaginal [...] HF chronicity, unspecified heart failure type (HCC) Fever, unspecified fever cause Shortness of breath documented in this encounter [facility] note* Diagnosis Chronic atrial fibrillation (HCC)- Primary Atrial fibrillation Hospital discharge follow-up Other follow-up examination Annual physical exam- Primary Routine general medical examination at a [facility] Chronic atrial fibrillation (HCC) Atrial fibrillation Essential hypertension with goal blood pressure less than 140/90 Irritable bowel syndrome without diarrhea Irritable bowel syndrome Tear of right rotator cuff, unspecified tear extent Persistent disorder of initiating or maintaining sleep Elevated liver enzymes Other nonspecific abnormal serum enzyme levels Arthritis Arthropathy, unspecified, site unspecified Hospital discharge follow-up- Primary Other follow-up examination Atrial fibrillation, unspecified type (HCC) Panlobular emphysema (HCC) Other emphysema Pre-operative examination- Primary Preoperative examination, unspecified Vaginal [...] chronicity, unspecified heart failure type (HCC) Pneumonia of right middle lobe due to infectious organism [facility] Diagnosis Chronic atrial fibrillation (HCC)- Primary Atrial fibrillation Hospital discharge follow-up Other follow-up examination Annual physical exam- Primary Routine general medical examination at a [facility] care facility Chronic atrial fibrillation (HCC) Atrial fibrillation Essential hypertension with goal blood pressure less than 140/90 Irritable bowel syndrome without diarrhea Irritable bowel syndrome Tear of right rotator cuff, unspecified tear extent Persistent disorder of initiating or maintaining sleep Elevated liver enzymes Other nonspecific abnormal serum enzyme levels Arthritis Arthropathy, unspecified, site unspecified Hospital discharge follow-up- Primary Other follow-up examination Atrial fibrillation, unspecified type (HCC) Panlobular emphysema (HCC) Other emphysema Pre-operative examination- Primary Preoperative examination, unspecified Vaginal [...] HF chronicity, unspecified heart failure type (HCC) Chest pain, unspecified type Acute cough Fever, unspecified fever cause Pneumonia due to infectious organism, unspecified laterality, unspecified part of lung [facility] Diagnosis Chronic atrial fibrillation (HCC)- Primary Atrial fibrillation Hospital discharge follow-up Other follow-up examination Annual physical exam- Primary Routine general medical examination at a health care facility Chronic atrial fibrillation (HCC) Atrial fibrillation Essential hypertension with goal blood pressure less than 140/90 Irritable bowel syndrome without diarrhea Irritable bowel syndrome Tear of right rotator cuff, unspecified tear extent Persistent disorder of initiating or maintaining sleep Elevated liver enzymes Other nonspecific abnormal serum enzyme levels Arthritis Arthropathy, unspecified, site unspecified Hospital discharge follow-up- Primary Other follow-up examination Atrial fibrillation, unspecified type (HCC) Panlobular emphysema (HCC) Other emphysema Contusion of right foot including toes, initial encounter Pre-operative examination- Primary Preoperative examination, unspecified Vaginal [...] (HCC) [facility] Diagnosis Chronic atrial fibrillation (HCC)- Primary Atrial fibrillation Hospital discharge follow-up Other follow-up examination Annual physical exam- Primary Routine general medical examination at a [facility] care facility Chronic atrial fibrillation (HCC) Atrial fibrillation Essential hypertension with goal blood pressure less than 140/90 Irritable bowel syndrome without diarrhea Irritable bowel syndrome Tear of right rotator cuff, unspecified tear extent Persistent disorder of initiating or maintaining sleep Elevated liver enzymes Other nonspecific abnormal serum enzyme levels Arthritis Arthropathy, unspecified, site unspecified Hospital discharge follow-up- Primary Other follow-up examination Atrial fibrillation, unspecified type (HCC) Panlobular emphysema (HCC) Other emphysema Neck pain Cervicalgia Pre-operative examination- Primary Preoperative examination, unspecified Vaginal [...] (HCC) [facility] Diagnosis Chronic atrial fibrillation (HCC)- Primary Atrial fibrillation Hospital discharge follow-up Other follow-up examination Annual physical exam- Primary Routine general medical examination at a [facility] facility Chronic atrial fibrillation (HCC) Atrial fibrillation Essential hypertension with goal blood pressure less than 140/90 Irritable bowel syndrome without diarrhea Irritable bowel syndrome Tear of right rotator cuff, unspecified tear extent Persistent disorder of initiating or maintaining sleep Elevated liver enzymes Other nonspecific abnormal serum enzyme levels Arthritis Arthropathy, unspecified, site unspecified Hospital discharge follow-up- Primary Other follow-up examination Atrial fibrillation, unspecified type (HCC) Panlobular emphysema (HCC) Other emphysema Foot injury, left, initial encounter Pre-operative examination- Primary Preoperative examination, unspecified Vaginal [...] failure type (HCC) documented in this encounter [facility] note* Diagnosis Chronic atrial fibrillation (HCC)- Primary Atrial fibrillation Hospital discharge follow-up Other follow-up examination Annual physical exam- Primary Routine general medical examination at a health care facility Chronic atrial fibrillation (HCC) Atrial fibrillation Essential hypertension with goal blood pressure less than 140/90 Irritable bowel syndrome without diarrhea Irritable bowel syndrome Tear of right rotator cuff, unspecified tear extent Persistent disorder of initiating or maintaining sleep Elevated liver enzymes Other nonspecific abnormal serum enzyme levels Arthritis Arthropathy, unspecified, site unspecified Hospital discharge follow-up- Primary Other follow-up examination Atrial fibrillation, unspecified type (HCC) Panlobular emphysema (HCC) Other emphysema Pre-operative examination- Primary Preoperative examination, unspecified Vaginal [...] HF chronicity, unspecified heart failure type (HCC) Medicare annual wellness visit, subsequent- Primary Routine general medical examination at a health care facility Generalized arthritis Peripheral arterial disease (HCC) Peripheral vascular disease, unspecified Memory deficit Memory loss Encounter for monitoring chronic NSAID therapy Encounter for therapeutic drug monitoring Thrush Candidiasis of mouth Frailty syndrome in geriatric patient Balance disorder Other symptoms involving nervous and musculoskeletal systems Generalized osteoarthrosis Generalized osteoarthrosis, unspecified site [facility] Diagnosis Persistent atrial fibrillation Atrial fibrillation Atrial fibrillation- Primary Acute decompensated heart failure Congestive heart failure, unspecified HF chronicity, unspecified heart failure type Atrial fibrillation, unspecified type Acute on chronic heart failure with preserved ejection fraction (HFpEF) Atrial fibrillation with RVR Atrial fibrillation Hypertension, unspecified type High risk medication use Encounter for long-term (current) use of other medications Atypical atrial flutter Atrial flutter CHF (congestive heart failure) Congestive heart failure, unspecified Hypertension Unspecified essential hypertension Moderate COPD (chronic obstructive pulmonary disease) Chronic airway obstruction, not elsewhere classified Atrial fibrillation, unspecified type Persistent atrial fibrillation Atrial fibrillation Persistent atrial fibrillation Atrial [facility] Atrial fibrillation [facility] Diagnosis Persistent atrial fibrillation Atrial fibrillation Persistent atrial fibrillation Atrial fibrillation [facility] Diagnosis Chronic atrial fibrillation (HCC)- Primary Atrial fibrillation Hospital discharge follow-up Other follow-up examination Annual physical exam- Primary Routine general medical examination at a health care facility Chronic atrial fibrillation (HCC) Atrial fibrillation Essential hypertension with goal blood pressure less than 140/90 Irritable bowel syndrome without diarrhea Irritable bowel syndrome Tear of right rotator cuff, unspecified tear extent Persistent disorder of initiating or maintaining sleep Elevated liver enzymes Other nonspecific abnormal serum enzyme levels Arthritis Arthropathy, unspecified, site unspecified Hospital discharge follow-up- Primary Other follow-up examination Atrial fibrillation, unspecified type (HCC) Panlobular emphysema (HCC) Other emphysema Pre-operative examination- Primary Preoperative examination, unspecified Vaginal [...] HF chronicity, unspecified heart failure type (HCC) 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)- Primary Lung nodules Other nonspecific abnormal finding of lung field Former cigarette smoker Personal history of tobacco use, presenting hazards to health documented [facility]* Diagnosis Chronic atrial fibrillation (HCC)- Primary Atrial fibrillation Hospital discharge follow-up Other follow-up examination Annual physical exam- Primary Routine general medical examination at a health care facility Chronic atrial fibrillation (HCC) Atrial fibrillation Essential hypertension with goal blood pressure less than 140/90 Irritable bowel syndrome without diarrhea Irritable bowel syndrome Tear of right rotator cuff, unspecified tear extent Persistent disorder of initiating or maintaining sleep Elevated liver enzymes Other nonspecific abnormal serum enzyme levels Arthritis Arthropathy, unspecified, site unspecified Hospital discharge follow-up- Primary Other follow-up examination Atrial fibrillation, unspecified type (HCC) Panlobular emphysema (HCC) Other emphysema Pre-operative examination- Primary Preoperative examination, unspecified Vaginal [...] HF chronicity, unspecified heart failure type (HCC) Lung nodules- Primary Other nonspecific abnormal finding of lung field Centrilobular emphysema (HCC) Other emphysema Former cigarette smoker Personal history of tobacco use, presenting hazards to health [facility] Diagnosis Chronic atrial fibrillation (HCC)- Primary Atrial fibrillation Hospital discharge follow-up Other follow-up examination Annual physical exam- Primary Routine general medical examination at a health care facility Chronic atrial fibrillation (HCC) Atrial fibrillation Essential hypertension with goal blood pressure less than 140/90 Irritable bowel syndrome without diarrhea Irritable bowel syndrome Tear of right rotator cuff, unspecified tear extent Persistent disorder of initiating or maintaining sleep Elevated liver enzymes Other nonspecific abnormal serum enzyme levels Arthritis Arthropathy, unspecified, site unspecified Hospital discharge follow-up- Primary Other follow-up examination Atrial fibrillation, unspecified type (HCC) Panlobular emphysema (HCC) Other emphysema Pre-operative examination- Primary Preoperative examination, unspecified Vaginal [...] HF chronicity, unspecified heart failure type (HCC) Acute cough- Primary [facility] Diagnosis Chronic atrial fibrillation (HCC)- Primary Atrial fibrillation Hospital discharge follow-up Other follow-up examination Annual physical exam- Primary Routine general medical examination at a health care facility Chronic atrial fibrillation (HCC) Atrial fibrillation Essential hypertension with goal blood pressure less than 140/90 Irritable bowel syndrome without diarrhea Irritable bowel syndrome Tear of right rotator cuff, unspecified tear extent Persistent disorder of initiating or maintaining sleep Elevated liver enzymes Other nonspecific abnormal serum enzyme levels Arthritis Arthropathy, unspecified, site unspecified Hospital discharge follow-up- Primary Other follow-up examination Atrial fibrillation, unspecified type (HCC) Panlobular emphysema (HCC) Other emphysema Pre-operative examination- Primary Preoperative examination, unspecified Vaginal [...] HF chronicity, unspecified heart failure type (HCC) Viral illness- Primary Unspecified viral infection, in conditions classified elsewhere and of unspecified site Pneumonia of right upper lobe due to infectious organism [facility] Diagnosis Chronic atrial fibrillation (HCC)- Primary Atrial fibrillation Hospital discharge follow-up Other follow-up examination Annual physical exam- Primary Routine general medical examination at a health care facility Chronic atrial fibrillation (HCC) Atrial fibrillation Essential hypertension with goal blood pressure less than 140/90 Irritable bowel syndrome without diarrhea Irritable bowel syndrome Tear of right rotator cuff, unspecified tear extent Persistent disorder of initiating or maintaining sleep Elevated liver enzymes Other nonspecific abnormal serum enzyme levels Arthritis Arthropathy, unspecified, site unspecified Hospital discharge follow-up- Primary Other follow-up examination Atrial fibrillation, unspecified type (HCC) Panlobular emphysema (HCC) Other emphysema Pre-operative examination- Primary Preoperative examination, unspecified Vaginal [...] HF chronicity, unspecified heart failure type (HCC) Lung nodules Other nonspecific abnormal finding of lung field Centrilobular emphysema (HCC) Other emphysema Former cigarette smoker Personal history of tobacco use, presenting hazards to health documented [facility]* Diagnosis Chronic atrial fibrillation (HCC)- Primary Atrial fibrillation Hospital discharge follow-up Other follow-up examination Annual physical exam- Primary Routine general medical examination at a health care facility Chronic atrial fibrillation (HCC) Atrial fibrillation Essential hypertension with goal blood pressure less than 140/90 Irritable bowel syndrome without diarrhea Irritable bowel syndrome Tear of right rotator cuff, unspecified tear extent Persistent disorder of initiating or maintaining sleep Elevated liver enzymes Other nonspecific abnormal serum enzyme levels Arthritis Arthropathy, unspecified, site unspecified Hospital discharge follow-up- Primary Other follow-up examination Atrial fibrillation, unspecified type (HCC) Panlobular emphysema (HCC) Other emphysema Pre-operative examination- Primary Preoperative examination, unspecified Vaginal [...] chronicity, unspecified heart failure type (HCC) Pneumonia of right upper lobe due to infectious organism- Primary [facility]* Diagnosis Chronic atrial fibrillation (HCC)- Primary Atrial fibrillation Hospital discharge follow-up Other follow-up examination Annual physical exam- Primary Routine general medical examination at a health care facility Chronic atrial fibrillation (HCC) Atrial fibrillation Essential hypertension with goal blood pressure less than 140/90 Irritable bowel syndrome without diarrhea Irritable bowel syndrome Tear of right rotator cuff, unspecified tear extent Persistent disorder of initiating or maintaining sleep Elevated liver enzymes Other nonspecific abnormal serum enzyme levels Arthritis Arthropathy, unspecified, site unspecified Hospital discharge follow-up- Primary Other follow-up examination Atrial fibrillation, unspecified type (HCC) Panlobular emphysema (HCC) Other emphysema Pre-operative examination- Primary Preoperative examination, unspecified Vaginal [...] HF chronicity, unspecified heart failure type (HCC) Acute otitis media, unspecified otitis media type- Primary Viral sinusitis Unspecified sinusitis (chronic) Pneumonia of right upper lobe due to infectious organism [facility] Diagnosis Chronic atrial fibrillation (HCC)- Primary Atrial fibrillation Hospital discharge follow-up Other follow-up examination Annual physical exam- Primary Routine general medical examination at a [facility] care facility Chronic atrial fibrillation (HCC) Atrial fibrillation Essential hypertension with goal blood pressure less than 140/90 Irritable bowel syndrome without diarrhea Irritable bowel syndrome Tear of right rotator cuff, unspecified tear extent Persistent disorder of initiating or maintaining sleep Elevated liver enzymes Other nonspecific abnormal serum enzyme levels Arthritis Arthropathy, unspecified, site unspecified Hospital discharge follow-up- Primary Other follow-up examination Atrial fibrillation, unspecified type (HCC) Panlobular emphysema (HCC) Other emphysema Pre-operative examination- Primary Preoperative examination, unspecified Vaginal [...] chronicity, unspecified heart failure type (HCC) Pneumonia of right upper lobe due to infectious organism- Primary [facility] Diagnosis Chronic atrial fibrillation (HCC)- Primary Atrial fibrillation Hospital discharge follow-up Other follow-up examination Annual physical exam- Primary Routine general medical examination at a health care facility Chronic atrial fibrillation (HCC) Atrial fibrillation Essential hypertension with goal blood pressure less than 140/90 Irritable bowel syndrome without diarrhea Irritable bowel syndrome Tear of right rotator cuff, unspecified tear extent Persistent disorder of initiating or maintaining sleep Elevated liver enzymes Other nonspecific abnormal serum enzyme levels Arthritis Arthropathy, unspecified, site unspecified Hospital discharge follow-up- Primary Other follow-up examination Atrial fibrillation, unspecified type (HCC) Panlobular emphysema (HCC) Other emphysema Pre-operative examination- Primary Preoperative examination, unspecified Vaginal [...] HF chronicity, unspecified heart failure type (HCC) Vertigo- Primary Dizziness and giddiness Paroxysmal atrial fibrillation (HCC) Atrial fibrillation Sinus drainage Other diseases of nasal cavity and sinuses Neck pain Cervicalgia [facility] Diagnosis Chronic atrial fibrillation (HCC)- Primary Atrial fibrillation Hospital discharge follow-up Other follow-up examination Annual physical exam- Primary Routine general medical examination at a health care facility Chronic atrial fibrillation (HCC) Atrial fibrillation Essential hypertension with goal blood pressure less than 140/90 Irritable bowel syndrome without diarrhea Irritable bowel syndrome Tear of right rotator cuff, unspecified tear extent Persistent disorder of initiating or maintaining sleep Elevated liver enzymes Other nonspecific abnormal serum enzyme levels Arthritis Arthropathy, unspecified, site unspecified Hospital discharge follow-up- Primary Other follow-up examination Atrial fibrillation, unspecified type (HCC) Panlobular emphysema (HCC) Other emphysema Pre-operative examination- Primary Preoperative examination, unspecified Vaginal [...] HF chronicity, unspecified heart failure type (HCC) CHF (congestive heart failure) (HCC) Congestive heart failure, unspecified Medication management Encounter for long-term (current) use of other medications [facility] Diagnosis Atrial fibrillation with RVR- Primary Atrial fibrillation Moderate COPD (chronic obstructive pulmonary disease) Chronic airway obstruction, not elsewhere classified Bradycardia Other specified cardiac dysrhythmias Bradycardia Other specified cardiac dysrhythmias [facility] Chronic atrial fibrillation (HCC)- Primary Atrial fibrillation Hospital discharge follow-up Other follow-up examination Annual physical exam- Primary Routine general medical examination at a health care facility Chronic atrial fibrillation (HCC) Atrial fibrillation Essential hypertension with goal blood pressure less than 140/90 Irritable bowel syndrome without diarrhea Irritable bowel syndrome Tear of right rotator cuff, unspecified tear extent Persistent disorder of initiating or maintaining sleep Elevated liver enzymes Other nonspecific abnormal serum enzyme levels Arthritis Arthropathy, unspecified, site unspecified Hospital discharge follow-up- Primary Other follow-up examination Atrial fibrillation, unspecified type (HCC) Panlobular emphysema (HCC) Other emphysema Pre-operative examination- Primary Preoperative examination, unspecified Vaginal [...] HF chronicity, unspecified heart failure type (HCC) History of recent hospitalization- Primary Personal history of unspecified disease Presence of cardiac pacemaker Cardiac pacemaker in situ Paroxysmal atrial fibrillation (HCC) Atrial fibrillation Urinary tract infection without hematuria, site unspecified Candidiasis of mouth Benign paroxysmal vertigo, unspecified laterality Dependent edema Edema Dyspnea, unspecified type [facility]. Hall [facility] August 08, 2022 6:17pm Note Date/Time August 08, 2022 6:1 7pm [facility] Medical Records Department [address] [place] [address] H&P Exam - Hospitalist 08/08/22 1810 MR#: [id number] Acct: [id number] Name: ELIZABETH PERSAUD Rep #:[id number] : 1945 77 From: Farhad Hall DO PCP: Dr. Minerva Shaver MD Status:ADM I N Location: [place] [address] HPI - General General Date of Admission: 08/08/22 Date of Service: 08/08/22 Chief Complaint: left sided weakness HPI Narrative ELIZABETH PERSAUD, is a 77 F who presents with left-sided weakness. Symptoms began about 2 weeks ago. Patient states that she had seen her primary care doctor andis unclear if the patient even brought this issue up but just was described as not to me. She presented because she was having some facial issues which was new. So she was directed to the emergency room. In the emergency room, patientwas noted to have left-sided weakness left facial droop. Patient underwent headCT that showed no acute process. Also while she was there should her heart ratewas noted to be in the 30s. Patient has been taking metoprolol succinate 100 twice daily in addition to her flecainide. Appears from the last cardiology note that she is supposed be taking metoprolol succinate 50 twice daily. Patient does state that she has been feeling dizzy. Since being in the emergency room, patient's heart rate has improved into the 50s. [facility] Medical History Abnormal bruising Acute cholecystitis Arthritis Atrial fibrillation Atrial fibrillation with RVR (10/31/18) Moses's esophagus Calculus of kidney Cancer Cardiomyopathy in other diseases classified elsewhere Carpal tunnel syndrome Chest pain Chronic diastolic (congestive) heart failure Chronic neck and back pain Diarrhea Difficulty balancing when standing GERD (gastroesophageal reflux disease) Heart disease History of DVT (deep vein thrombosis) Hypertension Non-rheumatic tricuspid valve insufficiency Nonrheumatic aortic valve stenosis Panlobular emphysema Paroxysmal atrial fibrillation Rotator cuff tear Scoliosis of cervical spine Shoulder pain SOB (shortness of breath) Tendonitis of shoulder, right Tubular adenoma of colon URI (upper respiratory infection) Home Medications multivitamin with folic acid 400 mcg tablet 1 tab PO DAILY supplement 03/15/13 [History Last Taken 10/31/18 07:00] melatonin 3 mg capsule 3 mg PO HS 01/19/21 [History Last Taken Unknown] calcium carbonate 500 mg calcium (1,250 mg) tablet 500 mg PO DAILY 06/25/21 [History Last Taken Unknown] diclofenac sodium 75 mg tablet,delayed release 75 mg PO .COMPLEX 06/25/21 [History Last Taken Unknown] furosemide 40 mg tablet 40 mg PO DAILY #90 tabs 08/31/21 [Rx Last Taken Unknown] sucralfate 1 gram tablet 1 g PO QACHS 05/07/22 [History Last Taken Unknown] apixaban 5 mg tablet 5 mg PO BID #180 tabs 06/14/22 [Rx Last Taken 08/05/22] valsartan 40 mg tablet 40 mg PO DAILY pt only taking 1/2 pill, ord by Dr. Shaver 07/11/22 [History Last Taken Unknown] cyclobenzaprine 10 mg tablet 10 mg PO HS PRN muscle spasm 07/25/22 [History Last Taken Unknown] famotidine 20 mg tablet 20 mg PO BID 07/25/22 [History Last Taken Unknown] potassium chloride 20 mEq tablet,extended release(part/cryst) 20 meq PO DAILY #180 tabs 07/25/22 [Rx Last Taken Unknown] metoprolol succinate 50 mg tablet,extended release 24 hr 100 mg PO BID #30 tabs 07/29/22 [Rx Last Taken 08/05/22] flecainide 100 mg tablet 150 mg PO BID #90 tabs 08/05/22 [Rx Last Taken Unknown] Allergy/AdvReac Type Severity Reaction Status Date / Time etodolac Allergy Intermediate Other Verified 08/08/22 15:53 diltiazem HCl [From Cardizem] Allergy Swelling Verified 08/08/22 15:53 of face and neck naproxen Allergy Swelling Verified 08/08/22 15:53 (whole body) prednisone Allergy Other Verified 08/08/22 15:53 amiodarone AdvReac Severe Severe Verified 08/08/22 15:53 dyspnea after taking PO Amiodarone adhesive AdvReac Rash Verified 08/08/22 15:53 albuterol AdvReac Other Verified 08/08/22 15:53 codeine AdvReac Vomiting Verified 08/08/22 15:53 hydrocodone bitartrate AdvReac Vomiting Verified 08/08/22 15:53 [From Vicodin] morphine AdvReac Vomiting Verified 08/08/22 15:53 Family History Sister Afib Father CAD (coronary artery disease) Brother CVA (cerebral vascular accident) Mother No problems noted. Sister No problems noted. Brother Wilsons disease Brother Wilsons disease Surgical History H/O hernia repair H/O neck surgery History of cardioversion (11/23/18) History of left heart catheterization (03/15/13) History of radiofrequency ablation procedure for cardiac arrhythmia (07/27/15) Hx of cholecystectomy Hx of fusion of cervical spine ovarian surgery Social History Smoking Status: Former smoker alcohol intake: never substance use type: does not use caffeine: Yes Type: coffee Number of servings: 1 what type of physical activity do you participate in: walking frequency: daily seatbelt use: always do you feel safe at home: Yes ROS ROS Narrative Was have some dizziness with gaze. All review of systems were negative except as mentioned above in the history of present illness and the other review of systems. Vital Signs Vital Signs Vital Signs: 08/08/22 15:53 08/08/22 16:23 08/08/22 16:25 Temperature 36.1 C L Temperature Source Temporal Pulse Rate 45 L 42 L 51 L Respiratory Rate 14 20 H 17 Blood Pressure 151/89 H 169/66 H 169/66 H Blood Pressure Mean 109 100 100 Pulse Ox 92 96 94 Oxygen Delivery Method Room Air Room Air Room Air 08/08/22 16:26 08/08/22 16:29 08/08/22 16:51 Temperature Temperature Source Pulse Rate 38 L 54 L Respiratory Rate 17 Blood Pressure 160/74 H Blood Pressure Mean 102 Pulse Ox 96 Oxygen Delivery Method Room Air Room Air 08/08/22 17:21 08/08/22 17:39 Temperature 36.8 C Temperature Source Temporal Pulse Rate 59 L 49 L Respiratory Rate 15 19 H Blood Pressure 154/78 H 153/78 H Blood Pressure Mean 103 103 Pulse Ox 97 96 Oxygen Delivery Method Room Air Room Air Weight Weight: 61.5 kg Body Mass Index (BMI) 25.6 Physical Exam Narrative - Physical Exam General: Alert, Oriented x3, Cooperative HEENT: Atraumatic, PERRLA, EOMI, Normocephalic. Left facial droop Oral: Moist Mucosa, No Gingival or Mucosal Lesions/ Ulcerations Neck: Supple, No JVD, Negative Carotid Bruits Lungs: Clear to auscultation, Normal air movement Cardiovascular: Regular rate, Normal S1, Normal S2, No murmurs Abdomen: Bowel Sounds Present, Soft, Non Tender, Non-Distended, No Hepato-splenomegaly Extremities: No clubbing, No cyanosis, No edema, Capillary Refill Less than 3 Seconds Skin: No rashes, No breakdown Musculoskeletal: No Tenderness to Palpation of Joints or Extremities Neurological: Cranial nerves II through XII grossly intact with exception of left facial droop. Muscle strength is 5-5 in the right upper and right lower extremity and 4-5 in the left upper and left lower extremity. Patient does havesome ataxia that can be explained by the weakness that she has on that side. Psych/Mental Status: Normal Affect, Appropriate Results Lab / Micro Data Attestation: I reviewed the patient's lab results. Result Diagrams: 08/08/22 16:20 08/08/22 16:20 Labs: Laboratory Results - last 24 hr 08/08/22 16:20: WBC 8.7, RBC 4.29, Hgb 12.6, Hct 38.9, MCV 90.7, MCH 29.4, MCHC 32.4, RDW Std Deviation 45.7 H, RDW Coeff of Elvie 14.0, Plt Count 314, MPV 10.5, Immature Gran % (Auto) 0.300, Neut % (Auto) 59.9, Lymph % (Auto) 28.7, Willacy % (Auto) 9.6, Eos % (Auto) 1.2, Baso % (Auto) 0.3, Absolute Neuts (auto) 5.2, Absolute Lymphs (auto) 2.49, Nucleated RBC % 0 08/08/22 16:20: PT 17.8 H, INR 1.5, APTT 34.7 08/08/22 16:20: Sodium 140, Potassium 4.2, Chloride 104, Carbon Dioxide 27.0, Anion Gap 9, BUN 35 H, Creatinine 1.24 H, Estim Creat Clear Calc 29.58, Est GFR (MDRD) Af Amer 54 L, Est GFR (MDRD) Non-Af 45 L, BUN/Creatinine Ratio 28.2 H, Glucose 103, Calcium 9.9, Troponin I High Sens 8 08/08/22 16:20: Total Bilirubin 0.40, Direct Bilirubin 0.16, AST 130 H, ALT 187 H, Alkaline Phosphatase 124 H, Total Protein 7.1, Albumin 3.7, Globulin 3.4 Rhythm Strip Rhythm Strip: Sinus Rhythm Rate: 33 Ectopy: PAC(s) EKG Initial EKG: Attestation: I personally reviewed and interpreted this EKG as follows: Prior EKG tracings: available for review EKG Rhythm Intrepretation: Sinus Bradycardia Radiology Impression Brain CT 08/08/22 16:21 IMPRESSION: There are no acute findings. Chronic involutional changes of the brain. Electronically Signed: Yeyo Moran MD at 17:02 EDT , ADDENDUM: 08/08/22 1709 IMPRESSION: There are no acute findings. Chronic involutional changes of the brain. N.B. : The above Results were Read Back by Yeyo Moran MD to Wilian Dempsey MD, and understanding confirmed on 08/08/2022 17:03:01 (ET). Electronically Signed: Yeyo Moran MD at 17:02 EDT , Chest X-Ray 08/08/22 16:42 IMPRESSION: There are no acute findings. Electronically Signed: Yeyo Moran MD at 17:03 EDT , Assessment & Plan Assessment/Plan (1) Acute stroke due to ischemia: PLAN: Onset was roughly 2 weeks ago according the patient. Despite that, patient's CAT scan did not show any acute process. Additional stroke work-up: MRI of the brain, 2D echocardiogram, MRA of the head and neck. Physical, occupational and speech therapy Check fasting lipid panel (2) Bradycardia, sinus, persistent, severe: PLAN: Patient was supposed to be taking metoprolol succinate 50 twice a day but was taking 100 twice a day in addition to flecainide. Discussed with Dr. Ibarra, who recommends holding the metoprolol succinate and flecainide for now and then to resume it, assuming her heart rate is better, addmetoprolol succinate 50 twice daily and flecainide 100 twice daily. PLAN: Plan Other chronic conditions * Paroxysmal atrial fibrillation: Flecainide metoprolol being held for now. Continue with apixaban * Hypertension: Fair control at this time. We will hold off on the furosemide for now VTE prophylaxis: Not indicated as patient is already anticoagulated. Disposition: To be determined. Based on the stroke work-up as well as therapy evaluations. Charges/Coding Visit Charges Inpatient E&M: 08081 Init Hosp L3 08/08/221816 <Electronically signed by Farhad Hall DO> Cosigner Signature (if applicable): CC: Dr. Minerva Shaver MD; Dr. Farhad Hall DO~ Signed [facility] Work Phone: History and physical note Author Stephanie Scales [facility] December 31, 2022 3:10am Note Date/Time December 31, 2022 2: 29am [facility] Medical Records Department [address] [place] [id number] H&P Exam - Hospitalist 12/31/22 0228 MR#: [id number] Acct: [id number] Name: ELIZABETH PERSAUD Rep #:[id number] : 1945 77 From: Stephanie Scales DO PCP: Dr. Minerva Shaver MD Status:ADM I N Location: [place] [id number] HPI - General General Date of Admission: 12/31/22 Date of Service: 12/31/22 Chief Complaint: Shortness of breath HPI Narrative ELIZABETH PERSAUD, is a 77 F who presented to the emergency department at [facility] with a chief complaint of shortness of breath. Dated she started having shortness of breath yesterday and today her shortness of breath worsened. She tried to go to bed but could not lie flat so she called the squad. Oxygen saturations were 80% on room air at the time of their arrival. She has started some coughing today this evening that is nonproductive. She reports she has had low-grade temperatures at home but has been afebrile since presentation here. She has had no sick contacts, no chills, no headache, no rhinorrhea, no chest pain, no nausea or vomiting, no diarrhea. She does admit tohaving C. difficile for which she is taking Dificid but denies any current diarrhea at this time. She denies ever utilizing oxygen at home. She does admit to worsening lower extremity swelling for which she double up her Lasix last week. She states this initially helped some but since has not been helpful. She states she does not salt her food or eat out much. She does not watch her fluid intake. She admits to weight gain of 15 pounds since July whenlion had her stroke. She was unable to tell me if she has had any acute weight gain in the last week or so. Vital signs on presentation showed temperature of 96.6, heart rate was 68, bloodpressure was 200/130 with a repeat at 180/79, respiratory rate has been anywherefrom 20-28 and oxygen saturations on presentation here were 96% on BiPAP. In the field they were 80% on room air. Her CBC did show a white count of 16.3 with a mild left shift that is 71.3% neutrophilia. Her blood gas showed a normal pH at 7.38/PCO2 44.6/PO2 was 84 on BiPAP at 45% FiO2. Her chemistry panel showed an elevated BUN at 36 and creatinine elevation at 1.29 above her baseline of 0.7- 0.95. Most recently her serum creatinine was 0.77 on 08/27/2022. Her glucose was 148. Troponin was 6. BNP was 394.7. Chest x-ray demonstrated increased interstitial prominence that was felt to be inflammatory infectious process. CHF was considered however felt to be less likely. No focal consolidation was identified. EKG showed normal sinus rhythm with out QTc prolongation, normal MA interval, and no ST/T wave changes concerning for acute ischemia. 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 Non-rheumatic tricuspid valve insufficiency Nonrheumatic aortic valve stenosis Panlobular emphysema Paroxysmal atrial fibrillation Rotator cuff tear Scoliosis of cervical spine Shoulder pain SOB (shortness of breath) Tendonitis of shoulder, right Tubular adenoma of colon URI (upper respiratory infection) Home Medications multivitamin with folic acid 400 mcg tablet 1 tab PO DAILY supplement 03/15/13 [History Last Taken 10/31/18 07:00] melatonin 3 mg capsule 3 mg PO HS Check with primary doctor 01/19/21 [History Last Taken Unknown] calcium carbonate 500 mg calcium (1,250 mg) tablet 500 mg PO DAILY Check with primary doctor 06/25/21 [History Last Taken Unknown] apixaban 5 mg tablet 5 mg PO BID #180 tabs 06/14/22 [Rx Last Taken 08/05/22] cyclobenzaprine 10 mg tablet 10 mg PO HS PRN muscle spasm 07/25/22 [History Last Taken Unknown] famotidine 20 mg tablet 20 mg PO BID Check with primary doctor 07/25/22 [History Last Taken Unknown] potassium chloride 20 mEq tablet,extended release(part/cryst) 20 meq PO DAILY #180 tabs 07/25/22 [Rx Last Taken Unknown] flecainide 100 mg tablet 100 mg PO Q12H 08/27/22 [History Last Taken Unknown] furosemide 40 mg tablet 40 mg PO DAILY #90 tabs 09/26/22 [Rx Last Taken Unknown] metoprolol succinate 50 mg tablet,extended release 24 hr 50 mg PO BID #60 tabs 10/03/22 [Rx Last Taken Unknown] valsartan 40 mg tablet 20 mg PO DAILY 10/03/22 [History Last Taken Unknown] fidaxomicin 200 mg tablet (Dificid) 200 mg PO Q12H 12/31/22 [History Last Taken Unknown] sucralfate 100 mg/mL oral suspension 10 ml PO ACHS 12/31/22 [History Last Taken Unknown] Allergy/AdvReac Type Severity Reaction Status Date / Time etodolac Allergy Intermediate Other Verified 12/31/22 01:21 diltiazem HCl [From Cardizem] Allergy Swelling Verified 12/31/22 01:21 of face and neck naproxen Allergy Swelling Verified 12/31/22 01:21 (whole body) prednisone Allergy Other Verified 12/31/22 01:21 amiodarone AdvReac Severe Severe Verified 12/31/22 01:21 dyspnea after taking PO Amiodarone adhesive AdvReac Rash Verified 12/31/22 01:21 albuterol AdvReac Other Verified 12/31/22 01:21 codeine AdvReac Vomiting Verified 12/31/22 01:21 hydrocodone bitartrate AdvReac Vomiting Verified 12/31/22 01:21 [From Vicodin] morphine AdvReac Vomiting Verified 12/31/22 01:21 Family History Sister Afib Father CAD (coronary artery disease) Brother CVA (cerebral vascular accident) Mother No problems noted. Sister No problems noted. Brother Wilsons disease Brother Wilsons disease Surgical History H/O hernia repair H/O neck surgery History of cardioversion (11/23/18) History of left heart catheterization (03/15/13) History of radiofrequency ablation procedure for cardiac arrhythmia (07/27/15) Hx of cholecystectomy Hx of fusion of cervical spine ovarian surgery Social History Smoking Status: Former smoker alcohol intake: never substance use type: does not use caffeine: Yes Type: coffee Number of servings: 1 what type of physical activity do you participate in: walking frequency: daily seatbelt use: always do you feel safe at home: Yes ROS Constitutional Constitutional: Reports change in weight and fever(s); Denies anorexia, chills, fatigue, malaise, night sweats, weakness or other Eyes Eyes: Denies blurry vision, change in eye color, change in vision, discharge from eye(s), double vision, erythema, eye pain, loss of vision or other ENT HEENT: Denies abnormal hearing, dysphagia, ear pain, epistaxis, headache(s), hearing loss, nasal congestion, nasal discharge, post nasal drip, sinus pressure, sore throat or other Cardiovascular Cardiovascular: Reports dyspnea on exertion, edema, orthopnea and paroxysmal nocturnal dyspnea; Denies chest pain, claudication, lightheadedness, palpitations, rapid heart rate, syncope or other Respiratory/Chest Respiratory/Chest: Reports cough, dyspnea, shortness of breath at rest and shortness of breath with exertion; Denies excessive phlegm production, hemoptysis, productive cough, wheezing or other Gastrointestinal Gastrointestinal: Denies abdominal pain, coffee ground emesis, constipation, diarrhea, dyspepsia, hematemesis, hematochezia, loose stools, melena, nausea, vomiting or other Genitourinary Genitourinary: Denies burning urination, difficulty urinating, dysuria, hematuria, nocturia, urinary frequency, urinary hesitancy, urinary incontinence,urinary urgency or other Musculoskeletal Musculoskeletal: Reports back pain; Denies arthralgias, joint pain, joint stiffness, joint swelling, myalgias, neck pain or other Neurologic Neurologic: Denies abnormal gait, abnormal speech, confusion, disequilibrium, dizziness, focal weakness, headache(s), numbness, paresthesias, seizure-like activity, seizures, syncope, tingling, tremor(s) or other Psychiatric Psychiatric: Denies anxiety, depression, homicidal ideation, suicidal ideation or other Endocrine Endocrinology: Denies change in body appearance, cold intolerance, excessive sweating, heat intolerance, polydipsia, polyuria or other Hematologic/Lymphatic Hematologic/Lymphatic: Denies anemia, easy bleeding, easy bruising, lymphadenopathy or other Allergic/Immunologic Allergic/Immunologic: Denies rhinitis, hives, eczemia, asthma or other Vital Signs Vital Signs Vital Signs: 12/31/22 01:21 12/31/22 01:21 12/31/22 01:28 Temperature 96.6 F L Temperature Source Temporal Pulse Rate 68 Respiratory Rate 20 H Respiratory Effort Short of Breath Nasal Flaring Respiratory Depth Deep Respiratory Pattern Tachypnea Blood Pressure 200/130 H Blood Pressure Mean 153 Pulse Ox 96 Oxygen Delivery Method Bi-pap Bi-pap Fraction of Inspired Oxygen (FIO2) 12/31/22 01:36 12/31/22 01:26 12/31/22 01:59 Temperature Temperature Source Pulse Rate 61 61 Respiratory Rate 27 H 28 H 21 H Respiratory Effort Respiratory Depth Respiratory Pattern Blood Pressure 123/98 H Blood Pressure Mean 106 Pulse Ox 97 97 98 Oxygen Delivery Method Bi-pap Fraction of Inspired Oxygen (FIO2) 45 12/31/22 02:00 12/31/22 02:10 12/31/22 02:15 Temperature Temperature Source Pulse Rate 62 62 55 L Respiratory Rate 26 H 22 H 24 H Respiratory Effort Respiratory Depth Respiratory Pattern Blood Pressure 180/79 H 171/92 H Blood Pressure Mean 104 117 Pulse Ox 96 98 97 Oxygen Delivery Method Bi-pap Bi-pap Fraction of Inspired Oxygen (FIO2) 12/31/22 02:20 Temperature Temperature Source Pulse Rate 56 L Respiratory Rate 20 H Respiratory Effort Respiratory Depth Respiratory Pattern Blood Pressure Blood Pressure Mean Pulse Ox 98 Oxygen Delivery Method Fraction of Inspired Oxygen (FIO2) Weight Weight: 68 kg Body Mass Index (BMI) 28.3 Physical Exam Const alert, oriented x3, no apparent distress and well nourished Constitutional Narrative: Older, white female, sitting up in bed currently on BiPAP, mentating well, interacts appropriately and able to converse despite being on BiPAP, nontoxic-appearing General Appearance: cooperative HEENT normocephalic, head/scalp atraumatic and hearing grossly normal bilaterally HEENT Narrative: Mallampati 2, no thrush mucous membranes are dry due to BiPAP Eyes PERRL, EOMs intact bilaterally and conjunctivae normal Eyes Narrative: No scleral icterus Neck no lymphadenopathy and supple Neck Narrative: Positive JVD, no carotid bruits bilaterally, trachea midline, no thyroid large, well-healed right-sided carotid endarterectomy scar Resp no retractions and no use of accessory muscles Resp Narrative: Diffuse scattered end expiratory wheeze and crackles, tachypnea but no signs of extremis Auscultation: crackles and wheezes; Negative for rhonchi Cardio regular rate, regular rhythm, S1 normal heart sound, S2 normal heart sound, no murmurs, no rub, no gallops and no clicks GI normal to inspection, nondistended, normoactive bowel sounds, soft to palpation and non-tender Extremity Extremity Narrative: 1+ pitting edema to knees bilaterally with no cyanosis or clubbing Skin skin turgor normal, no jaundice, no petechiae and no mottling Neuro oriented x3, CN's II-XII intact bilaterally and moves all extremities Neuro Narrative: Slight weakness that is residual from previous stroke on left side, slight sensory changes on left side from residual stroke Speech: speech normal Psych affect normal Psych Narrative: Eye contact is good, patient interacts normally, very pleasant Results Lab / Micro Data Attestation: I reviewed the patient's lab results. 12/31/22 01:17 12/31/22 01:17 Labs: Laboratory Results - last 24 hr 12/31/22 01:17: WBC 16.3 H, RBC 4.10 L, Hgb 12.4, Hct 38.3, MCV 93.4, MCH 30.2, MCHC 32.4, RDW Std Deviation 43.9, RDW Coeff of Elvie 12.9, Plt Count 335, MPV 10.2, Immature Gran % (Auto) 0.500, Neut % (Auto) 71.3 H, Lymph % (Auto) 20.8, Willacy % (Auto) 6.4, Eos % (Auto) 0.7, Baso % (Auto) 0.3, Absolute Neuts (auto) 11.7 H, Absolute Lymphs (auto) 3.39, Nucleated RBC % 0, Sodium 142, Potassium 4.5, Chloride 107, Carbon Dioxide 29.0, Anion Gap 6, BUN 36 H, Creatinine 1.29 H, Estim Creat Clear Calc 28.43, Est GFR (MDRD) Af Amer 52 L, Est GFR (MDRD) Non-Af 43 L, BUN/Creatinine Ratio 27.9 H, Glucose 148 H, Calcium 9.5, Troponin I High Sens 6, B-Natriuretic Peptide 394.7 H ABG Data ABG results: ABG 12/31/22 01:52 Specimen Type ART Sample Site R Brach pH 7.38 Bicarbonate Actual 26.2 H Total CO2 28 Base Excess 1 O2 Saturation 96 O2 % 45 ABG pCO2 44.6 ABG pO2 84 Terrence Test Positive Respiration Rate 12 O2 Delivery Device BiPAP POC PEEP 8 Clinical Comments BIPAP 14/8 R12 45% Rhythm Strip Rhythm Strip: Sinus Rhythm Rate: 63 Ectopy: None Assessment & Plan Assessment/Plan (1) Acute exacerbation of CHF (congestive heart failure): (2) Acute respiratory failure with hypoxia: (3) GALINA (acute kidney injury): (4) Bilateral lower extremity edema: (5) Elevated brain natriuretic peptide (BNP) level: PLAN: Plan Acute hypoxic respiratory failure etiology is currently unclear -Etiology is currently unclear however likely pneumonia versus heart failure -Initially felt this was likely heart failure however with leukocytosis and patient reporting a fever of 100.5 at home I think we need to do due diligence and treat her empirically for respiratory infection initially -Check sputum culture if patient able to produce -Check respiratory viral panel -Check rapid COVID -Blood cultures ordered in the emergency department -Start ceftriaxone and azithromycin -Lasix 40 mg IV 3 times daily -Add Nitropaste to help with getting her pressure down, diuresis and heart failure -Check echocardiogram -Most recent echo from July 2022 shows an EF of 55% with stage III diastolicdysfunction and right ventricular systolic pressure of 46 mmHg -Strict I's and O's -Fluid restrict to 1500 cc daily -Sodium restrict diet -Daily weights Bilateral lower extremity edema -BNP is elevated that is why I do favor heart failure overall -Continue Lasix as noted above -Bilateral lower extremity Layla bandages -Strict I's and O's - fluid restricted diet once able to eat -Sodium restricted diet once able to eat GALINA -Baseline serum creatinine appears to be between 0.7 and 0.95 -Serum creatinine presentation is 1.29. -Unclear if this elevation is related to being off the Starling curve versus dehydration -With edema will favor being off the Starling curve to start and continue Lasix but transition to IV from oral as noted above -Avoid nephrotoxins as able -Repeat BMP in a.m. COPD with history of tobacco abuse -Patient has had previous PFTs that are suggestive of COPD -Also had a CT in 2021 that showed moderate diffuse centrilobular pulmonary emphysema -Patient with remote history of tobacco abuse -Mild wheezing on exam however cannot exclude cardiac wheeze -Continue to monitor clinically -We will hold off on steroids as patient has documented allergy C. difficile infection -Continue Dificid -Patient without current diarrhea Paroxysmal atrial fibrillation -Currently in normal sinus rhythm -Continue flecainide -Can continue all -Continue apixaban Left-sided carotid artery aneurysm -Continue outpatient follow-up with Dr. Persaud at [facility] Chronic diastolic/right-sided heart failure -Previous echo as above -Repeat echocardiogram is pending Hypertension -Continue Lasix as IV as noted above -Continue home with goal -Continue home valsartan but monitor renal function History of stroke -Continue treatment for atrial fibrillation History of Moses's esophagus -Continue home famotidine -Continue home Carafate Chronic pain -Hold home Flexeril while patient required -As needed Tylenol History of DVT -Patient is fully anticoagulated with apixaban--> we will continue DVT prophylaxis -As above CODE Status -Full code Charges/Coding Visit Charges Inpatient E&M: 13259 Init Hosp L3 12/31/22 0310 <Electronically signed by Stephanie Scales DO> Cosigner Signature (if applicable): CC: Dr. Minerva Shaver MD; Dr. Stephanie Scales DO~ Signed [facility] Work Phone: Hospital Discharge instructions Additional Instructions Please continue all of your home medications as directed by your doctor and return to the ER should you have any further concerns or worsening of [facility]WK[facility] Work Phone: Reason for referral (narrative)* Diagnostic Procedure Only (Routine) - Pending Review Specialty Diagnoses / Procedures Referred By Dimitri larios Referred To Contact BR IMAGING Diagnoses Encounter for screening mammogram for breast cancer Procedures CLARIBEL SCREENING SCREENING MAMMOGRAPHY BI 2-VIEW BREAST INC Minerva Bunn MD [address] [place] [address] Br Imaging [address] [facility] [place] [address] Referral ID Status Reason Start Date Expiration Date Visits Requested Visits Authorized [id number] Pending Review Auto-Generat ed Referral 11/07/2021 12/07/2022 1 1 [facility] for referral (narrative)* Diagnostic Procedure Only (Routine) - Closed Specialty Diagnoses / Procedures Referred By Dimitri larios Referred To Contact US IMAGING Diagnoses 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 Cystocele, midline Rectocele Incomplete uterovaginal prolapse Preoperative examination Overactive bladder Procedures US FEMALE PELVIS TRANSVAG US TRANSVAGINAL Qiana Pizarro MD [address] [place] [address] Us Imaging Referral ID Status Reason Start Date Expiration Date V isits Requested Visits Authorized [id number] Closed Auto-Generate d Referral 12/04/2021 01/03/2023 1 1 [facility] for referral (narrative)* Diagnostic Procedure Only (Routine) - Pending Review Specialty Diagnoses / Procedures Referred By Contac t Referred To Contact XR IMAGING Diagnoses Hiatal hernia with GERD without esophagitis Procedures XR MODIFIED BARIUM SWALLOW W SPEECH THERAPY RADIOLOGIC EXAM SWALLOW FUNCTION CONTRAST STUDY Hodan Stevens APRN.CNP [address] [place] [address] [address] Referral ID Status Reason Start Date Expiration Date Visits Requested Visits Authorized [id number] Pending Review Auto-Generat ed Referral 2 05/29/2023 1 1 [facility] for referral (narrative)* Diagnostic Procedure Only (Routine) - Authorized Specialty Diagnoses / Procedures Referred By Contac t Referred To Contact US IMAGING Diagnoses Elevated LFTs Procedures US ABD RT UPPER QUADRANT US ABDOMINAL REAL TIME W/IMAGE LIMITED Hodan Stevens APRN.CNP [address] [place] [address] Us Imaging Referral ID Status Reason Start Date Expiration Date Visits Requested Visits Authorized [id number] Authorized Auto-Generat ed Referral 2 05/30/2023 1 1 [facility] for referral (narrative)* Outpatient Procedure (Routine) - Authorized Specialty Diagnoses / Procedures Referred By Contac t Referred To Contact [facility] Diagnoses Peripheral arterial disease (HCC) Procedures PVR LEG W/EXC LIANA VAS LAB N-INVAS PHYSIOLOGIC STD LXTR ART COMPL BI Zuleyma Persaud DO [address] [place] [address] [facility] [place] [address] [place] [address] Referral ID Status Reason Start Date Expiration Date Visits Requested Visits Authorized [id number] Authorized Auto-Generat ed Referral 09/03/2022 09/03/2023 1 1 [facility] for referral (narrative)* Outpatient Procedure (Routine) - Closed Specialty Diagnoses / Procedures Referred By Contac t Referred To Contact [facility] Diagnoses SOB (shortness of breath) Procedures LUNG DIFFUSION CAPACITY (DLCO) DIFFUSING CAPACITY Laith Montes MD [address] [place] [address] Respiratory [place] [id number] Referral ID Status Reason Start Date Expiration Date V isits Requested Visits Authorized [id number] Closed Auto-Generate d Referral 01/27/2023 02/26/2024 1 1 * Outpatient Procedure (Routine) - Closed Specialty Diagnoses / Procedures Referred By Contac t Referred To Contact [facility] [place] Diagnoses SOB (shortness of breath) Procedures SPIROMETRY WITH DILATOR IF OBSTRUCTED BRNCDILAT RSPSE SPMTRY PRE&POST-BRNCDILAT ADMN Laith Montes MD [address] [place] [address] [address] Referral ID Status Reason Start Date Expiration Date V isits Requested Visits Authorized [id number] Closed Auto-Generate d Referral 01/27/2023 05/11/2023 1 1 [facility] for referral (narrative)* Outpatient Procedure (Routine) - Closed Specialty Diagnoses / Procedures Referred By Contac t Referred To Contact [facility] Diagnoses Dysphagia, unspecified type Procedures EGD DIAGNOSTIC ESOPHAGOGASTRODUODENOSC OPY TRANSORAL DIAGNOSTIC Katheryn Stokes MD [address] [address] [facility] [place] [address] [place] [address] Referral ID Status Reason Start Date Expiration Date V isits Requested Visits Authorized [id number] Closed Auto-Generate d Referral 05/30/2023 05/30/2024 1 1 [facility] for referral (narrative)* Diagnostic Procedure Only (Routine) - Closed Specialty Diagnoses / Procedures [facility] Referred To Contact XR IMAGING Diagnoses Fall, initial encounter Acute pain of right shoulder Procedures XR SHOULDER [id number] AP/TRUE AP RIGHT RADEX SHOULDER COMPLETE MINIMUM 2 VIEWS Dianna Ballard APRN.[employer] [address] [place] [id number] [place] [address] Referral ID Status Reason Start Date Expiration Date V isits Requested Visits Authorized [id number] Closed Auto-Generate d Referral 01/23/2023 02/22/2024 1 1 [facility] for referral (narrative)* Diagnostic Procedure Only (Routine) - Closed Specialty Diagnoses / Procedures [facility] Referred To Contact XR IMAGING Diagnoses Fall, initial encounter Acute midline back pain, unspecified back location Procedures XR THORACIC GENERAL 3V AP/LAT/SWIMMERS RADEX SPINE THORACIC 3 VIEWS Dianna Ballard APRN.[employer] [address] [place] [address] [place] [address] Referral ID Status Reason Start Date Expiration Date V isits Requested Visits Authorized [id number] Closed Auto-Generate d Referral 09/26/2022 10/26/2023 1 1 * Diagnostic Procedure Only (Routine) - Closed Specialty Diagnoses / Procedures Referred By Contac t Referred To Contact XR IMAGING Diagnoses Fall, initial encounter Acute midline back pain, unspecified back location Procedures XR LUMBAR GENERAL 3V AP/LAT/L5-S1 RADEX SPINE LUMBOSACRAL 2/3 VIEWS Dianna Ballard APRN.[employer] [address] [place] [address] [place] [address] Referral ID Status Reason Start Date Expiration Date V isits Requested Visits Authorized [id number] Closed Auto-Generate d Referral 09/26/2022 10/26/2023 1 1 * Diagnostic Procedure Only (Routine) - Closed Specialty Diagnoses / Procedures Referred By Contac t Referred To Contact XR IMAGING Diagnoses Fall, initial encounter Rib tenderness Procedures XR RIBS 2V AP/OBL LEFT RADEX RIBS UNILATERAL 2 VIEWS Dianna Ballard APRN.[employer] [address] [place] [address] [place] [address] Referral ID Status Reason Start Date Expiration Date V isits Requested Visits Authorized [id number] Closed Auto-Generate d Referral 09/26/2022 10/26/2023 1 1 [facility] for referral (narrative)* Diagnostic Procedure Only (Routine) - Closed Specialty Diagnoses / Procedures Referred By Contac t Referred To Contact XR IMAGING Diagnoses Contusion of right foot including toes, initial encounter Procedures XR FOOT GENERAL 3V AP/LAT/OBL RIGHT X-RAY FOOT MINIMUM 3 VIEWS Stephen Maradiaga MD [address] [place] [address] [place] [address] Referral ID Status Reason Start Date Expiration Date V isits Requested Visits Authorized [id number] Closed Auto-Generate d Referral 05/02/2021 06/01/2022 1 1 [facility] for referral (narrative)* Diagnostic Procedure Only (Routine) - Closed Specialty Diagnoses / Procedures Referred By Contac t Referred To Contact XR IMAGING Diagnoses Neck pain Procedures XR CERV OTHER 4V AP/LAT/OBL X-RAY NECK MINIMUM 4 VIEWS Minerva Shaver MD [address] [place] [address] [place] [address] Referral ID Status Reason Start Date Expiration Date V isits Requested Visits Authorized [id number] Closed Auto-Generate d Referral 01/16/2021 02/15/2022 1 1 [facility] for referral (narrative)* Consultation (Routine) - New Request Specialty Diagnoses / Procedures Referred By Contac t Referred To Contact Cardiovascular Medicine Diagnoses High risk medication use Aracelis Pichardo ALUMNI RELATIONS COORDINATOR-[employer] [address] [place] [address] Referral ID Status Reason Start Date Expiration Date V isits Requested Visits Authorized [id number] New Request 04/14/2024 05/09/2025 1 1 Electronically signed by Aracelis Pichardo ALUMNI RELATIONS COORDINATOR-[employer] at 04/14/2024 4:57 PM EST * Adjunctive Therapy (Routine) - New Request Specialty Diagnoses / Procedures Referred By Contac t Referred To Contact Cardiac Rehabilitation Diagnoses Acute decompensated heart failure Congestive heart failure, unspecified HF chronicity, unspecified heart failure type Procedures MA OUTPATIENT CARDIAC REHAB W/CONT ECG MONITORING Shelly Noyola PA-C [address] [facility] [address] [place] [address] Referral ID Status Reason Start Date Expiration Date V isits Requested Visits Authorized [id number] New Request 04/14/2024 05/09/2025 1 1 * Consultation (Routine) - New Request Specialty Diagnoses / Procedures Referred By Contac t Referred To Contact Pharmacy Diagnoses Acute decompensated heart failure Sandi Roche, ALUMNI RELATIONS COORDINATOR-[employer] [address] [address] Referral ID Status Reason Start Date Expiration Date V isits Requested Visits Authorized [id number] New Request 04/13/2024 05/08/2025 1 1 * Adjunctive Therapy (Routine) - New Request Specialty Diagnoses / Procedures Referred By Contac t Referred To Contact Pharmacy Diagnoses Acute decompensated heart failure Sandi Roche APRN-CNP [address] [place] [phone] Referral ID Status Reason Start Date Expiration Date V isits Requested Visits Authorized [id number] New Request 04/13/2024 05/08/2025 1 1 * (Routine) Specialty Diagnoses / Procedures Referred By Contac t Referred To Contact [facility] [address] [place] [phone] Referral ID Status Reason Start Date Expiration Date Visits Re quested Visits Authorized * Unlisted Procedure Code (Routine) - New Request Specialty Diagnoses / Procedures Referred By Contac t Referred To Contact Procedures PLATELET MONITORING PER PROTOCOL Rica Schulz PA-C [address] [place] [address] Referral ID Status Reason Start Date Expiration Date V isits Requested Visits Authorized [id number] New Request 04/12/2024 05/07/2025 1 1 * Unlisted Procedure Code (Routine) - New Request Specialty Diagnoses / Procedures Referred By Contac t Referred To Contact Procedures LEFT VENTRICULAR SYSTOLIC FUNCTION (LVSF) ASSESSMENT Rica Schulz PA-C [address] [place] [address] Referral ID Status Reason Start Date Expiration Date V isits Requested Visits Authorized [id number] New Request 04/12/2024 05/07/2025 1 1 * Radiology (Routine) - New Request Specialty Diagnoses / Procedures Referred By Contac t Referred To Contact Procedures ECG Rica Schulz PA-C [address] [place] [address] Referral ID Status Reason Start Date Expiration Date V isits Requested Visits Authorized [id number] New Request 04/12/2024 05/07/2025 1 1 * Unlisted Procedure Code (Routine) - New Request Specialty Diagnoses / Procedures Referred By Dimitri t Referred To Contact Procedures DVT/VTE RISK ASSESSMENT Rica Schulz PA-C [address] [place] [address] Referral ID Status Reason Start Date Expiration Date V isits Requested Visits Authorized [id number] New Request 04/12/2024 05/07/2025 1 1 * (Routine) Specialty Diagnoses / Procedures Referred By Dimitri t Referred To Contact [facility] [address] [place] [address] Referral ID Status Reason Start Date Expiration Date Visits Re quested Visits [facility]ized [facility]No reason for referral information availableWKettering Health [facility] Work Phone: Reason for visit Narrative* Outpatient Procedure (Routine) - Closed Specialty Diagnoses / Procedures Referred By Contac t Referred To Contact [facility] Diagnoses Dysphagia, unspecified type Procedures EGD DIAGNOSTIC ESOPHAGOGASTRODUODENOSC OPY TRANSORAL DIAGNOSTIC Katheryn Stokes MD [address] [address] [facility] [address] [place] [address] [place] [address] Referral ID Status Reason Start Date Expiration Date V isits Requested Visits Authorized [id number] Closed Auto-Generate d Referral 05/30/2023 05/30/2024 1 1 [facility] for visit Narrative* Diagnostic Procedure Only (Routine) - Closed Specialty Diagnoses / Procedures Referred By Contac t Referred To Contact XR IMAGING Diagnoses Fall, initial encounter Acute midline back pain, unspecified back location Procedures XR THORACIC GENERAL 3V AP/LAT/SWIMMERS RADEX SPINE THORACIC 3 VIEWS Dianna Ballard, ALUMNI RELATIONS COORDINATOR.[employer] [address] [place] [address] [place] [address] Referral ID Status Reason Start Date Expiration Date V isits Requested Visits Authorized [id number] Closed Auto-Generate d Referral 09/26/2022 10/26/2023 1 1 [facility] for visit Narrative* Diagnostic Procedure Only (Routine) - Closed Specialty Diagnoses / Procedures Referred By Contac t Referred To Contact Radiology / [facility] Diagnoses Chest pain, unspecified type; Acute cough; Fever, unspecified fever cause; Pneumonia due to infectious organism, unspecified laterality, unspecified part of lung Procedures RADIOLOGIC EXAM CHEST 2 VIEWS XR CHEST Dianna Ballard, ALUMNI RELATIONS COORDINATOR.[employer] [address] [place] [address] Radio [facility] [address] [place] [address] Referral ID Status Reason Start Date Expiration Date Visits Re quested Visits Authorized [id number] Closed 03/15/2022 05/11/2022 1 1 [facility] for visit Narrative* Diagnostic Procedure Only (Routine) - Closed Specialty Diagnoses / Procedures Referred By Contac t Referred To Contact XR IMAGING Diagnoses Contusion of right foot including toes, initial encounter Procedures XR FOOT GENERAL 3V AP/LAT/OBL RIGHT X-RAY FOOT MINIMUM 3 VIEWS Stephen Maradiaga MD [address] [place] [address] [place] [address] Referral ID Status Reason Start Date Expiration Date V isits Requested Visits Authorized [id number] Closed Auto-Generate d Referral 05/02/2021 06/01/2022 1 1 [facility] for visit Narrative* Diagnostic Procedure Only (Routine) - Closed Specialty Diagnoses / Procedures Referred By Alexandraac t Referred To Contact XR IMAGING Diagnoses Neck pain Procedures XR CERV OTHER 4V AP/LAT/OBL X-RAY NECK MINIMUM 4 VIEWS Minerva Shaver MD [address] [place] [address] [place] [address] Referral ID Status Reason Start Date Expiration Date V isits Requested Visits Authorized [id number] Closed Auto-Generate d Referral 01/16/2021 02/15/2022 1 1 [facility] for visit Narrative* Auth/Cert Specialty Diagnoses / Procedures Referred By Dimitri t Referred To Contact Diagnoses afib, shortness of breath Toña Persaud MD [address] [place] [address]. [place] [address] [facility] [address] [place] [address] Referral ID Status Reason Start Date Expiration Date Visits Re quested Visits Authorized [id number] 1 1 [facility] N[facility]* Auth/Cert Specialty Diagnoses / Procedures Referred By Contac t Referred To Contact Diagnoses Persistent atrial fibrillation Persistent atrial fibrillation [I48.19] Procedures MA COMPRE EP EVAL ABLTJ ATR FIB PULM VEIN ISOLATION SCHED DRUG LOAD (66171) ABLATION SCHED INTERCARDIAC A-FIB TRANSEPTAL BY PULM VEIN ISOLATION W/EP EVAL (13086) SCHED DRUG LOAD (20684) Alli Hernandez MD [address] [facility] [address] [place] [address] [facility] [address] [place] [address] Referral ID Status Reason Start Date Expiration Date Visits Re quested Visits Authorized [id number] 1 1 [facility] N[facility]ative* Consult, Test, Treat (Routine) - Closed Specialty Diagnoses / Procedures Referred By Contac t Referred To Contact Radiology / [facility] Diagnoses Viral infection, unspecified xr chest rm 2 Procedures RADIOLOGIC EXAM CHEST 2 VIEWS XR CHEST Clutter, Nadir, PA-C [address] [facility] [address] [place] [address] Phone: tel: fax: Radiology [address] [place] [address] Phone: tel: fax: Referral ID Status Reason Start Date Expiration Date Visits Re quested Visits Authorized [id number] Closed 07/05/2024 05/11/2025 1 1 [facility] for visit Narrative* Auth/Cert Specialty Diagnoses / Procedures Referred By Contac t Referred To Contact Diagnoses PAF (paroxysmal atrial fibrillation) Anuel Cortes MD [address] [place] [address] Phone: tel: fax: [facility] [address] [place] [address] Referral ID Status Reason Start Date Expiration Date Visits Re quested Visits Authorized [id number] 1 1 [facility] Advance Directives No Advanced Directives Records FoundDocuments on File Type Date Recorded Patient Operations Vice President Expl anation Advance Directive(s) 02/28/2016 12:15 PM Advance Directive(s) 02/21/2016 9:18 AM Advance Directive(s) 11/22/2015 12:01 PM Advance Directive(s) 11/10/2015 11:55 AM Documents on File Type Date Recorded Patient Operations Vice President Expl anation Advance Directive(s) 02/28/2016 12:15 PM Advance Directive(s) 02/21/2016 9:18 AM Advance Directive(s) 11/22/2015 12:01 PM Advance Directive(s) 11/10/2015 11:55 AM Advance Directive Response Recorded Date/ Time Advance Directives No June 1:18pm Living Will No June 26 1:18pm Power of Harness Placer No June 26, 2021 1:18pm Advance Directive Response Recorded Date/ Time Advance Directives No June 12:18pm Living Will No June 26, 2 022 12:18pm Power of Harness Placer No June 26, 2021 12:18pm Advance Directive Response Recorded Date/ Time Advance Directives No June 12:18pm Living Will No April 27, 2 022 2:22pm Power of Harness Placer No April 27, 2022 2:22pm Advance Directive Response Recorded Date/ Time Advance Directives No June 1:18pm Living Will No April 27, 2 022 3:22pm Power of Harness Placer No April 27, 2022 3:22pm Advance Directive Response Recorded Date/ Time Advance Directives No August 02, 2 023 8:04am Living Will No August 08, 2022 4:23pm Power of Harness Placer No August 08 4:23pm Advance Directive Response Recorded Date/ Time Advance Directives No August 02, 2 023 8:04am Living Will No August 08, 2022 6:51pm Power of Harness Placer No August 08 6:51pm Advance Directive Response Recorded Date/ Time Name of Medical Power of Harness Placer Nichol whitlock December 31, 2022 3:21am Advance Directives No August 02, 2 023 8:04am Living Will Yes December 31 3:21am Power of Harness Placer Yes December 31 2 023 3:21am Advance Directive Response Recorded Date/ Time Name of Medical Power of Harness Placer Nichol Morales e December 31, 2022 2:21am Advance Directives No August 02, 2 023 7:04am Living Will Yes December 31 2:21am Power of Harness Placer Yes December 31, 2 023 2:21am Advance Directive Response Recorded Date/ Time Advance Directives No August 02, 2 023 7:04am Living Will Yes December 31 2:21am Power of Harness Placer Yes December 31 2 023 2:21am Advance Directive Response Recorded Date/ Time Advance Directives on File Yes Brad cumminsy 2023 11:17am Name of Medical Power of Harness Placer janis billings ge July 04, 2023 11:17am Advance Directives Yes June 11:17am Living Will Yes July 04 024 11:17am Power of Harness Placer Yes July 04, 2023 11:17am Advance Directive Response Recorded Date/ Time Advance Directives on File Yes Brad ortega 2023 12:17pm Name of Medical Power of Harness Placer janis leon July 04, 2023 12:17pm Advance Directives Yes August 10 9:13am Living Will No September 05, 2023 5:23pm Power of Harness Placer No September 04 5:23pm Date Activated Date Inactivated Comments 04/13/2024 12:27 AM Advance Directive Response Recorded Date/ Time Living Will No April 12 12:26pm Do you have a Healthcare Power of Harness Placer? No April 12, 2024 12:26pm Living Will No May 26 12:20am Do you have a Healthcare Power of Harness Placer? No May 26, 2024 12:20am Living Will No July 31, 2024 10:35pm Do you have a Healthcare Power of Harness Placer? No July 31, 2024 10:35pm Advance Directives Yes January 11:43am Advance Directive Response Recorded Date/ Time Living Will No May 26 12:20am Do you have a Healthcare Power of Harness Placer? No May 26, 2024 12:20am Living Will No July 31, 2024 10:35pm Do you have a Healthcare Power of Harness Placer? No July 31, 2024 10:35pm Advance Directives Yes January 11:43am Advance Directive Response Recorded Date/ Time Living Will No July 31, 2024 10:35pm Do you have a Healthcare Power of Harness Placer? No July 31, 2024 10:35pm Advance Directives Yes January 11:43am Advance Directive Response Recorded Date/ Time Living Will No July 31, 2024 10:35pm Do you have a Healthcare Power of Harness Placer? No July 31, 2024 10:35pm Advance Directives No September 29 12:27pm Documents on File Type Date Recorded Patient Operations Vice President Expl anation HealthCare Power of Harness Placer 10/03/2024 2:49 PM HealthCare Power of Harness Placer 08/10/2022 Advance Directives/Living Will 08/10/2022 Advance Directive Response Recorded Date/ Time Advance Directives on File No September 102024 12:27pm Living Will No September 29, 2024 1 2:27pm Do you have a Healthcare Power of Harness Placer? No September 29, 2024 12:27pm Living Will No July 31, 2024 10:35pm Do you have a Healthcare Power of Harness Placer? No July 31, 2024 10:35pm Advance Directives Yes January 11:43am Reason for Referral Specialty Diagnoses / Procedures Referred By Contac t Referred To Contact Diagnoses 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 Procedures CONSULT TO FEMALE UROLOGY/URO GYNECOLOGY OFFICE/OUTPATIENT [facility] 60-74 MINUTES Lindsay Gongora MD [address] [place] [address] Referral ID Status Reason Start Date Expiration Date Visits Requested Visits Authorized [id number] Authorized PCP Requested Referral 09/21/2021 09/21/2022 1 1 Specialty Diagnoses / Procedures Referred By Contac t Referred To Contact Gastroenterology Diagnoses Elevated liver enzymes Decreased appetite Hiatal hernia with GERD without esophagitis 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 Procedures CONSULT TO GASTROENTEROLOGY OFFICE/OUTPATIENT [facility] 60-74 MINUTES Elio, APRN. [employer]iannaBOILERMAKER SHIP [address] [place] [address] Referral ID Status Reason Start Date Expiration Date Visits Requested Visits Authorized [id number] Authorized PCP Requested Referral 05/15/2022 05/15/2023 1 1 Specialty Diagnoses / Procedures Referred By Contac t Referred To Contact General Surgery Diagnoses Hiatal hernia with GERD without esophagitis Procedures CONSULT TO GENERAL SURGERY OFFICE/OUTPATIENT [facility] 60-74 MINUTES OlderDianna APRN.[employer] [address] [place] [address] Referral ID Status Reason Start Date Expiration Date Visits Requested Visits Authorized [id number] Authorized PCP Requested Referral 05/17/2022 05/17/2023 1 1 Specialty Diagnoses / Procedures Referred By Contac t Referred To Contact Infectious Diseases Diagnoses Fever, unspecified fever cause Procedures CONSULT TO INFECTIOUS DISEASES OFFICE/OUTPATIENT [facility] 60-74 MINUTES Older, APRN. [employer] [address] [place] [address] Referral ID Status Reason Start Date Expiration Date Visits Requested Visits Authorized [id number] Authorized PCP Requested Referral 05/22/2022 05/22/2023 1 1 Specialty Diagnoses / Procedures Referred By Dimitir larios Referred To Contact CT IMAGING Diagnoses Hiatal hernia with GERD without esophagitis Personal history of colonic polyps Procedures CT ABD/PEL WO IVCON CT ABD & PELVIS W/O CONTRAST Katheryn Stokes MD [address] [place] [address] Ct Imaging Referral ID Status Reason Start Date Expiration Date Visits Requested Visits Authorized [id number] Pending Review Auto-Generat ed Referral 05/23/2022 06/22/2023 1 1 Specialty Diagnoses / Procedures Referred By Dimitri larios Referred To Contact [facility] Diagnoses Hiatal hernia with GERD without esophagitis Personal history of colonic polyps Procedures COLONOSCOPY SCREENING COLONOSCOPY FLX DX W/COLLJ SPEC WHEN PFRMD Katheryn Stokes MD [address] [place] [address] [facility] [address] [address] Referral ID Status Reason Start Date Expiration Date Visits Requested Visits Authorized [id number] Authorized Auto-Generat ed Referral 05/23/2022 05/23/2023 1 1 Specialty Diagnoses / Procedures Referred By Dimitri larios Referred To Contact [facility] Diagnoses Hiatal hernia with GERD without esophagitis Personal history of colonic polyps Procedures EGD DIAGNOSTIC ESOPHAGOGASTRODUODENOSC OPY TRANSORAL DIAGNOSTIC Katheryn Stokes MD [address] [place] [address] [address] Referral ID Status Reason Start Date Expiration Date Visits Requested Visits Authorized [id number] Authorized Auto-Generat ed Referral 05/23/2022 05/23/2023 1 1 Specialty Diagnoses / Procedures Referred By Dimitri larios Referred To Contact Vascular Surgery Diagnoses PAD (peripheral artery disease) (HCC) Procedures CONSULT TO VASCULAR SURGERY OFFICE/OUTPATIENT NEW HIGH MDM 60-74 MINUTES Minerva Shaver MD [address] [place] [address] Referral ID Status Reason Start Date Expiration Date Visits Requested Visits Authorized [id number] Pending Review PCP Requested Referral 07/23/2022 07/19/2023 1 1 Specialty Diagnoses / Procedures Referred By Contac t Referred To Contact Neurology Diagnoses Cerebrovascular accident (CVA), unspecified mechanism (HCC) Dianna Ballard CNP [address] [place] [address] [facility] Referral ID Status Reason Start Date Expiration Date V isits Requested Visits Authorized [id number] Pending Review 08/19/2022 08/19/2023 1 1 Specialty Diagnoses / Procedures Referred By Contac t Referred To Contact Diagnoses Lumbar spondylosis Perlita Flowers MD [address] [place] [address] [facility] Speech Therapy [address] [place] [address] Referral ID Status Reason Start Date Expiration Date Visits Requested Visits Authorized [id number] Pending Review Patient Preference 09/13/2022 09/13/2023 1 1 Specialty Diagnoses / Procedures Referred By Contac t Referred To Contact CT IMAGING Diagnoses Left lower quadrant abdominal pain Right lower quadrant abdominal tenderness without rebound tenderness Bowel habit changes Blood in stool Procedures CT ABD/PEL W IVCON CT ABD & PELVIS W/CONTRAST Dianna Ballard APRN.[employer] [address] [place] [address] [place] [address] Referral ID Status Reason Start Date Expiration Date Visits Requested Visits Authorized [id number] Waiting for Online Response Auto-Generat ed Referral 12/26/2022 01/25/2024 2 2 Specialty Diagnoses / Procedures Referred By Contac t Referred To Contact Cardiology / [facility] [place] Diagnoses Atrial fibrillation, unspecified type (HCC) Bradycardia Shortness of breath Congestive heart failure, unspecified HF chronicity, unspecified heart failure type (HCC) On home oxygen therapy Procedures CONSULT TO CARDIOLOGY OFFICE/OUTPATIENT [facility] MDM 60-74 MINUTES Dianna Ballard APRN.[employer] [address] [place] [address] [facility] [address] [place] [address] Referral ID Status Reason Start Date Expiration Date Visits Requested Visits Authorized [id number] Pending Review PCP Requested Referral OON/Self Pay Override 01/23/2023 01/23/2024 1 1 Specialty Diagnoses / Procedures Referred By Contac t Referred To Contact XR IMAGING Diagnoses Fall, initial encounter Acute pain of right shoulder Procedures XR SHOULDER [id number] AP/TRUE AP RIGHT RADEX SHOULDER COMPLETE MINIMUM 2 VIEWS Dianna Ballard APRN.[employer] [address] [place] [id number] Xr Imaging [id number] Referral ID Status Reason Start Date Expiration Date V isits Requested Visits Authorized [id number] Closed Auto-Generate d Referral 01/23/2023 02/22/2024 1 1 Specialty Diagnoses / Procedures Referred By Contac t Referred To Contact [facility] Diagnoses Atrial fibrillation, unspecified type (HCC) Bradycardia Procedures ECG COMPLETE ECG ROUTINE ECG W/LEAST 12 LDS W/I&R Dianna Ballard APRN.[employer] [address] [place] [phone] [facility] [place] [address] Referral ID Status Reason Start Date Expiration Date V isits Requested Visits Authorized [id number] Closed Auto-Generate d Referral 01/23/2023 01/23/2024 1 1 Specialty Diagnoses / Procedures Referred By Contac t Referred To Contact CT IMAGING Diagnoses Hiatal hernia with GERD without esophagitis Personal history of colonic polyps Procedures CT ABD/PEL WO IVCON CT ABD & PELVIS W/O CONTRAST Katheryn Stokes MD [address] [place] [address] Ct Imaging [id number] Referral ID Status Reason Start Date Expiration Date V isits Requested Visits Authorized [id number] Closed Auto-Generate d Referral 05/24/2022 05/11/2023 2 2 Referral ID Status Reason Start Date Expiration Date V isits Requested Visits Authorized [id number] Closed Auto-Generate d Referral 12/26/2022 01/25/2023 1 1 Specialty Diagnoses / Procedures Referred By Contac t Referred To Contact [facility] Diagnoses Frailty syndrome in geriatric patient Balance disorder Procedures CONSULT TO PHYSICAL THERAPY PHYSICAL THERAPY EVALUATION HIGH COMPLEX 45 MINS Minerva Shaver MD [address] [place] [address] [facility] [place] [address] [place] [address] Referral ID Status Reason Start Date Expiration Date Visits Requested Visits Authorized [id number] Pending Review Auto-Generat ed Referral 04/02/2025 1 1 Specialty Diagnoses / Procedures Referred By Contac t Referred To Contact Diagnoses Persistent atrial fibrillation Procedures CT CARDIAC PULMONARY VENOGRAM CHG CT HEART CONTRAST EVAL CARDIAC STRUCTURE&MORPH Alli Hernandez MD [address] [facility] [address] [place] [address] Referral ID Status Reason Start Date Expiration Date Visits Re quested Visits Authorized [id number] Closed 03/08/2024 04/02/2025 1 1 Specialty Diagnoses / Procedures Referred By Contac t Referred To Contact Diagnoses Persistent atrial fibrillation Procedures MOBILE CARDIAC TELEMETRY Aracelis Pichardo, ALUMNI RELATIONS COORDINATOR-[employer] [address] [address] Referral ID Status Reason Start Date Expiration Date V isits Requested Visits Authorized [id number] New Request 04/22/2024 05/17/2025 1 1 Specialty Diagnoses / Procedures Referred By Contac t Referred To Contact Procedures ECG Kala Kolb, ALUMNI RELATIONS COORDINATOR-[employer] [address] [place] [address] Referral ID Status Reason Start Date Expiration Date V isits Requested Visits Authorized [id number] New Request 04/22/2024 05/17/2025 1 1 Specialty Diagnoses / Procedures Referred By Contac t Referred To Contact CT IMAGING Diagnoses 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) Lung nodules Former cigarette smoker Procedures CT CHEST WO IVCON DIAGNOSTIC COMPUTED TOMOGRAPHY THORAX W/O CNTRST Laith Montes MD [address] [place] [address] [place] [address] Referral ID Status Reason Start Date Expiration Date Visits Requested Visits Authorized [id number] Pending Review Auto-Generat ed Referral 07/17/2025 1 1 Chief Complaint and Reason for Visit Chief Complaint BL SHOULDER surgicial clearence E ORDER Reason for Visit Internal impingement of both shoulders Pain of right sternoclavicular joint Chronic diastolic (congestive) heart failure Paroxysmal atrial fibrillation Chief Complaint surgicial clearence E ORDER BILAT SHOULDER Atrial fibrillation 1 wk EKG COUGH/CONGESTION/FEVER/COVID TEST/R SHOULDER PAIN COVID TEST CHEST XRAY Reason for Visit Chronic diastolic (c ongestive) heart failure Paroxysmal atrial fibrillation Internal impingement of both shoulders Pain of right sternoclavicular joint SOB (shortness of breath) URI (upper respiratory infection) Chief Complaint surgicial clearence E ORDER BILAT SHOULDER Atrial fibrillation 1 wk EKG COUGH/CONGESTION/FEVER/COVID TEST/R SHOULDER PAIN COVID TEST CHEST XRAY LEXISCAN CHEST PAIN LEXISCAN CHEST PAIN Reason for Visit Chronic diastolic (c ongestive) heart failure Paroxysmal atrial fibrillation Internal impingement of both shoulders Pain of right sternoclavicular joint SOB (shortness of breath) URI (upper respiratory infection) Chief Complaint BILAT SHOULDER Atrial fibrillation 1 wk EKG COUGH/CONGESTION/FEVER/COVID TEST/R SHOULDER PAIN COVID TEST CHEST XRAY LEXISCAN CHEST PAIN LEXISCAN CHEST PAIN EORDERS Reason for Visit Internal impingement of both shoulders Pain of right sternoclavicular joint SOB (shortness of breath) URI (upper respiratory infection) Chief Complaint BILAT SHOULDER Atrial fibrillation 1 wk EKG COUGH/CONGESTION/FEVER/COVID TEST/R SHOULDER PAIN COVID TEST CHEST XRAY LEXISCAN CHEST PAIN LEXISCAN CHEST PAIN EORDERS general illness HIATAL HERNIA Reason for Visit Internal impingement of both shoulders Pain of right sternoclavicular joint SOB (shortness of breath) URI (upper respiratory infection) Chief Complaint BILAT SHOULDER Atrial fibrillation 1 wk EKG COUGH/CONGESTION/FEVER/COVID TEST/R SHOULDER PAIN COVID TEST CHEST XRAY LEXISCAN CHEST PAIN LEXISCAN CHEST PAIN EORDERS general illness HIATAL HERNIA ELEVATED LFT Reason for Visit Internal impingement of both shoulders Pain of right sternoclavicular joint SOB (shortness of breath) URI (upper respiratory infection) Chief Complaint LEXISCAN CHEST PAIN LEXISCAN CHEST PAIN EORDERS general illness HIATAL HERNIA ELEVATED LFT bilat shoulders Reason for Visit Internal impingement of both shoulders Chief Complaint LEXISCAN CHEST PAIN LEXISCAN CHEST PAIN EORDERS general illness HIATAL HERNIA ELEVATED LFT bilat shoulders F/U PER L.LITZY Reason for Visit Internal impingement of both shoulders SOB (shortness of breath) Chronic diastolic (congestive) heart failure Paroxysmal atrial fibrillation Chief Complaint EORDERS general illness HIATAL HERNIA ELEVATED LFT bilat shoulders F/U PER L.LITZY AFIB PRE 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 I48.0 CVA Cerebrovascular accident Cerebrovascular accident Cerebrovascular accident Reason for Visit Internal impingement of both shoulders SOB (shortness of breath) Chronic diastolic (congestive) heart failure Paroxysmal atrial fibrillation Acute stroke due to ischemia Bradycardia, sinus, persistent, severe Left-sided weakness Chronic diastolic (congestive) heart failure residential (current) use of anticoagulants Chief Complaint EORDERS general illness HIATAL HERNIA ELEVATED LFT bilat shoulders F/U PER L.LORAISHWARYA AFIB PRE 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 Chief Complaint HIATAL HERNIA ELEVATED LFT bilat shoulders F/U PER LTOMASSON AFIB PRE [facility]V I48.0 CVA Cerebrovascular accident Cerebrovascular accident AM EKG Cerebrovascular accident Cerebrovascular accident [facility] S/P SROKE EORDERS Reason for Visit Internal impingement of both shoulders SOB (shortness of breath) Paroxysmal atrial fibrillation Bradycardia, sinus, persistent, severe Left-sided weakness Aneurysm of left internal carotid artery Paroxysmal atrial fibrillation Chief Complaint AFIB PRE [facility] I48.0 CVA Cerebrovascular accident Cerebrovascular accident AM EKG Cerebrovascular accident Cerebrovascular accident [facility] S/P SROKE EORDERS BI LAT SHOULDERS 4-6 WK F/U VERTIGO RX HERE Reason for Visit Bradycardia, sinus, persistent, severe Left-sided weakness Aneurysm of left internal carotid artery Paroxysmal atrial fibrillation Internal impingement of both shoulders Tear of left rotator cuff Aneurysm of left internal carotid artery Paroxysmal atrial fibrillation Chief Complaint BI LAT SHOULDERS 4-6 WK F/U VERTIGO RX HERE ACUTE HYPOXIC RESPIRATORY FAILURE Reason for Visit Internal impingement of both shoulders Tear of left rotator cuff Aneurysm of left internal carotid artery Paroxysmal atrial fibrillation Acute respiratory failure with hypoxia GALINA (acute kidney injury) Bilateral lower extremity edema Elevated brain natriuretic peptide (BNP) level Acute exacerbation of CHF (congestive heart failure) Chief Complaint 4-6 WK F/U VERTIGO RX HERE ACUTE HYPOXIC RESPIRATORY FAILURE ACUTE HYPOXIC RESPIRATORY FAILURE ACUTE HYPOXIC RESPIRATORY FAILURE Reason for Visit Aneurysm of left int ernal carotid artery Paroxysmal atrial fibrillation Acute respiratory failure with hypoxia GALINA (acute kidney injury) Bilateral lower extremity edema Elevated brain natriuretic peptide (BNP) level Acute exacerbation of CHF (congestive heart failure) Chief Complaint 4-6 WK F/U VERTIGO RX HERE ACUTE HYPOXIC RESPIRATORY FAILURE ACUTE HYPOXIC RESPIRATORY FAILURE ACUTE HYPOXIC RESPIRATORY FAILURE Reason for Visit Aneurysm of left int ernal carotid artery Paroxysmal atrial fibrillation Acute exacerbation of CHF (congestive heart failure) Acute respiratory failure with hypoxia GALINA (acute kidney injury) Bilateral lower extremity edema Elevated brain natriuretic peptide (BNP) level Chief Complaint ACUTE HYPOXIC RESPIR ATORY FAILURE ACUTE HYPOXIC RESPIRATORY FAILURE ACUTE HYPOXIC RESPIRATORY FAILURE S/P [facility] ED 01/02/23 R HIP OA Reason for Visit Acute exacerbation o f CHF (congestive heart failure) Acute respiratory failure with hypoxia GALINA (acute kidney injury) Bilateral lower extremity edema Elevated brain natriuretic peptide (BNP) level Aneurysm of left internal carotid artery Chronic diastolic (congestive) heart failure Paroxysmal atrial fibrillation Fatigue Chief Complaint R HIP OA Paroxysmal atrial fibrillation Chief Complaint R HIP OA Paroxysmal atrial fibrillation A-FIB A-FIB A-FIB A-FIB Chief Complaint Paroxysmal atrial fi brillation A-FIB A-FIB A-FIB A-FIB S/P DCCV 1 WK EKG LEFT HIP RM 2 6 M FU RIGHT HIP RM 5 FALL Reason for Visit Hamstring muscle str ain Left hip pain Aneurysm of left internal carotid artery Chronic diastolic (congestive) heart failure Paroxysmal atrial fibrillation Fatigue Osteoarthritis of right hip Right hip pain Chief Complaint Admit Date COPD April 12, 2024 1 0:52am 4 W FU April 19, 2024 8 :51am S/P [facility] 04/22April 28, 2024 3:53pm palpitaions May 25, 2024 1 1:20pm 3 M FU July 27, 2024 11: 00am PALPITATIONS July 31, 2024 10: 29pm Reason for Visit Admit Date Aneurysm of left internal carotid artery April 19, 2024 8:51am Chronic diastolic (congestive) heart gema lure April 19, 2024 8:51am Paroxysmal atrial fibrillation April 19, 2024 8:51am Fatigue April 19, 2024 8 :51am Aneurysm of left internal carotid artery April 28, 2024 3:53pm Chronic diastolic (congestive) heart gema lure April 28, 2024 3:53pm Paroxysmal atrial fibrillation April 28, 2024 3:53pm Fatigue April 28, 2024 3:53pm Aneurysm of left internal carotid artery July 27, 2024 11:00am Chronic diastolic (congestive) heart gema lure July 27, 2024 11:00am Paroxysmal atrial fibrillation July 11:00am Chief Complaint Admit Date S/P [facility] 04/22April 28, 2024 3:53pm palpitaions May 25, 2024 1 1:20pm 3 M FU July 27, 2024 11: 00am PALPITATIONS July 31, 2024 10: 29pm LUMBAR SPINE August 17, 2024 10:5 4am Pain August 17, 2024 11:2 5am Reason for Visit Admit Date Aneurysm of left internal carotid artery April 28, 2024 3:53pm Chronic diastolic (congestive) heart gema lure April 28, 2024 3:53pm Paroxysmal atrial fibrillation April 28, 2024 3:53pm Fatigue April 28, 2024 3:53pm Aneurysm of left internal carotid artery July 27, 2024 11:00am Chronic diastolic (congestive) heart gema lure July 27, 2024 11:00am Paroxysmal atrial fibrillation July 11:00am Degenerative disc disease, lumbar August 17, 2024 10:54am Lumbar radiculopathy August 17, 2024 10: 54am Neck pain with history of cervical spina l surgery August 17, 2024 10:54am Chief Complaint Admit Date palpitaions May 25, 2024 1 1:20pm 3 M FU July 27, 2024 11: 00am PALPITATIONS July 31, 2024 10: 29pm LUMBAR SPINE August 17, 2024 10:5 4am Pain August 17, 2024 11:2 5am LUE; Carpal tunnel syndrome, left upper limb September 15, 2024 10:47am LUE; Carpal tunnel syndrome, left upper limb September 15, 2024 1:25pm Reason for Visit Admit Date Aneurysm of left internal carotid artery July 27, 2024 11:00am Chronic diastolic (congestive) heart gema lure July 27, 2024 11:00am Paroxysmal atrial fibrillation July 11:00am Degenerative disc disease, lumbar August 17, 2024 10:54am Lumbar radiculopathy August 17, 2024 10: 54am Neck pain with history of cervical spina l surgery August 17, 2024 10:54am Chief Complaint Admit Date 3 M FU July 27, 2024 11: 00am PALPITATIONS July 31, 2024 10: 29pm LUMBAR SPINE August 17, 2024 10:5 4am Pain August 17, 2024 11:2 5am LUE; Carpal tunnel syndrome, left upper limb September 15, 2024 10:47am LUE; Carpal tunnel syndrome, left upper limb September 15, 2024 1:25pm LUMBAR RADICULOPATHY, DDD September 25, 2024 8:00am PER RISA September 29, 2024 10:40 am Chief Complaint Admit Date 3 M FU July 27, 2024 11: 00am PALPITATIONS July 31, 2024 10: 29pm LUMBAR SPINE August 17, 2024 10:5 4am Pain August 17, 2024 11:2 5am LUE; Carpal tunnel syndrome, left upper limb September 15, 2024 10:47am LUE; Carpal tunnel syndrome, left upper limb September 15, 2024 1:25pm LUMBAR RADICULOPATHY, DDD September 25, 2024 8:00am PER RISA September 29, 2024 10:40 am AFIB September 30, 2024 10:52 am Atrial fibrillation September 30, 2024 12:52 pm 1 W WOUND CHECK ([facility]/ 6 wk post decrease HR) October 14, 2024 9:56am Reason for Visit Admit Date Aneurysm of left internal carotid artery July 27, 2024 11:00am Chronic diastolic (congestive) heart gema lure July 27, 2024 11:00am Paroxysmal atrial fibrillation July 11:00am Degenerative disc disease, lumbar August 17, 2024 10:54am Lumbar radiculopathy August 17, 2024 10: 54am Neck pain with history of cervical spina l surgery August 17, 2024 10:54am Persistent atrial fibrillation with RVR September 30, 2024 10:52am Complete AV block October 14, 2024 9:56a m Hx of atrioventricular node ablation Hussein 2024 9:56am Presence of cardiac pacemaker October 14, 2024 9:56am Chief Complaint Admit Date 3 M FU July 27, 2024 11: 00am PALPITATIONS July 31, 2024 10: 29pm LUMBAR SPINE August 17, 2024 10:5 4am Pain August 17, 2024 11:2 5am LUE; Carpal tunnel syndrome, left upper limb September 15, 2024 10:47am LUE; Carpal tunnel syndrome, left upper limb September 15, 2024 1:25pm LUMBAR RADICULOPATHY, DDD September 25, 2024 8:00am PER RISA September 29, 2024 10:40 am AFIB September 30, 2024 10:52 am Atrial fibrillation September 30, 2024 12:52 pm 1 W WOUND CHECK ([facility]/ 6 wk post decrease HR) October 14, 2024 9:56am LUMBAR SPINE October 15, 2024 10:28 am Family History No Family History Records Found Relationship Condition Age at Onset Recorded Date/T diogenes sister Atrial fibrillation Unknown father Coronary artery disease Unknown brother Cerebrovascular accident (CVA) Unknown brother Vince's disease Unknown Summary Purpose Health Concerns Infection Onset Date Last Indicated [...] or prosecute any alcohol or drug abuse patient.[facility]In the event this information is protected by the Federal Confidentiality of Alcohol and Drug Abuse Patient Records regulations: The Federal rules restrict any use of the information to criminally investigate or prosecute any alcohol or drug abuse patient.[facility] DaytonIn the event this information is protected by the Federal Confidentiality of Alcohol and Drug Abuse Patient Records regulations: The Federal rules restrict any use of the information to criminally investigate or prosecute any alcohol or drug abuse patient.[facility] DaytonIn the event this information is protected by the Federal Confidentiality of Alcohol and Drug Abuse Patient Records regulations: The Federal rules restrict any use of the information to criminally investigate or prosecute any alcohol or drug abuse patient.[facility] DaytonIn the event this information is protected by the Federal Confidentiality of Alcohol and Drug Abuse Patient Records regulations: The Federal rules restrict any use of the information to criminally investigate or prosecute any alcohol or drug abuse patient.[facility] DaytonIn the event this information is protected by the Federal Confidentiality of Alcohol and Drug Abuse Patient Records regulations: The Federal rules restrict any use of the information to criminally investigate or prosecute any alcohol or drug abuse patient.[facility] DaytonIn the event this information is protected by the Federal Confidentiality of Alcohol and Drug Abuse Patient Records regulations: The Federal rules restrict any use of the information to criminally investigate or prosecute any alcohol or drug abuse patient.[facility] DaytonIn the event this information is protected by the Federal Confidentiality of Alcohol and Drug Abuse Patient Records regulations: The Federal rules restrict any use of the information to criminally investigate or prosecute any alcohol or drug abuse patient.[facility] DaytonIn the event this information is protected by the Federal Confidentiality of Alcohol and Drug Abuse Patient Records regulations: The Federal rules restrict any use of the information to criminally investigate or prosecute any alcohol or drug abuse patient.[facility] DaytonIn the event this information is protected by the Federal Confidentiality of Alcohol and Drug Abuse Patient Records regulations: The Federal rules restrict any use of the information to criminally investigate or prosecute any alcohol or drug abuse patient.[facility] DaytonIn the event this information is protected by the Federal Confidentiality of Alcohol and Drug Abuse Patient Records regulations: The Federal rules restrict any use of the information to criminally investigate or prosecute any alcohol or drug abuse patient.[facility] DaytonIn the event this information is protected by the Federal Confidentiality of Alcohol and Drug Abuse Patient Records regulations: The Federal rules restrict any use of the information to criminally investigate or prosecute any alcohol or drug abuse patient.[facility] DaytonIn the event this information is protected by the Federal Confidentiality of Alcohol and Drug Abuse Patient Records regulations: The Federal rules restrict any use of the information to criminally investigate or prosecute any alcohol or drug abuse patient.[facility] DaytonIn the event this information is protected by the Federal Confidentiality of Alcohol and Drug Abuse Patient Records regulations: The Federal rules restrict any use of the information to criminally investigate or prosecute any alcohol or drug abuse patient.[facility] DaytonIn the event this information is protected by the Federal Confidentiality of Alcohol and Drug Abuse Patient Records regulations: The Federal rules restrict any use of the information to criminally investigate or prosecute any alcohol or drug abuse patient.[facility] DaytonIn the event this information is protected by the Federal Confidentiality of Alcohol and Drug Abuse Patient Records regulations: The Federal rules restrict any use of the information to criminally investigate or prosecute any alcohol or drug abuse patient.[facility] DaytonIn the event this information is protected by the Federal Confidentiality of Alcohol and Drug Abuse Patient Records regulations: The Federal rules restrict any use of the information to criminally investigate or prosecute any alcohol or drug abuse patient.[facility] DaytonIn the event this information is protected by the Federal Confidentiality of Alcohol and Drug Abuse Patient Records regulations: The Federal rules restrict any use of the information to criminally investigate or prosecute any alcohol or drug abuse patient.[facility] DaytonIn the event this information is protected by the Federal Confidentiality of Alcohol and Drug Abuse Patient Records regulations: The Federal rules restrict any use of the information to criminally investigate or prosecute any alcohol or drug abuse patient.[facility] DaytonIn the event this information is protected by the Federal Confidentiality of Alcohol and Drug Abuse Patient Records regulations: The Federal rules restrict any use of the information to criminally investigate or prosecute any alcohol or drug abuse patient.[facility] DaytonIn the event this information is protected by the Federal Confidentiality of Alcohol and Drug Abuse Patient Records regulations: The Federal rules restrict any use of the information to criminally investigate or prosecute any alcohol or drug abuse patient.[facility] DaytonIn the event this information is protected by the Federal Confidentiality of Alcohol and Drug Abuse Patient Records regulations: The Federal rules restrict any use of the information to criminally investigate or prosecute any alcohol or drug abuse patient.[facility] DaytonIn the event this information is protected by the Federal Confidentiality of Alcohol and Drug Abuse Patient Records regulations: The Federal rules restrict any use of the information to criminally investigate or prosecute any alcohol or drug abuse patient.[facility] DaytonIn the event this information is protected by the Federal Confidentiality of Alcohol and Drug Abuse Patient Records regulations: The Federal rules restrict any use of the information to criminally investigate or prosecute any alcohol or drug abuse patient.[facility] DaytonIn the event this information is protected by the Federal Confidentiality of Alcohol and Drug Abuse Patient Records regulations: The Federal rules restrict any use of the information to criminally investigate or prosecute any alcohol or drug abuse patient.[facility] DaytonIn the event this information is protected by the Federal Confidentiality of Alcohol and Drug Abuse Patient Records regulations: The Federal rules restrict any use of the information to criminally investigate or prosecute any alcohol or drug abuse patient.[facility] DaytonIn the event this information is protected by the Federal Confidentiality of Alcohol and Drug Abuse Patient Records regulations: The Federal rules restrict any use of the information to criminally investigate or prosecute any alcohol or drug abuse patient.[facility] DaytonIn the event this information is protected by the Federal Confidentiality of Alcohol and Drug Abuse Patient Records regulations: The Federal rules restrict any use of the information to criminally investigate or prosecute any alcohol or drug abuse patient.[facility] DaytonIn the event this information is protected by the Federal Confidentiality of Alcohol and Drug Abuse Patient Records regulations: The Federal rules restrict any use of the information to criminally investigate or prosecute any alcohol or drug abuse patient.[facility] DaytonIn the event this information is protected by the Federal Confidentiality of Alcohol and Drug Abuse Patient Records regulations: The Federal rules restrict any use of the information to criminally investigate or prosecute any alcohol or drug abuse patient.[facility] DaytonIn the event this information is protected by the Federal Confidentiality of Alcohol and Drug Abuse Patient Records regulations: The Federal rules restrict any use of the information to criminally investigate or prosecute any alcohol or drug abuse patient.[facility] DaytonIn the event this information is protected by the Federal Confidentiality of Alcohol and Drug Abuse Patient Records regulations: The Federal rules restrict any use of the information to criminally investigate or prosecute any alcohol or drug abuse patient.[facility] DaytonIn the event this information is protected by the Federal Confidentiality of Alcohol and Drug Abuse Patient Records regulations: The Federal rules restrict any use of the information to criminally investigate or prosecute any alcohol or drug abuse patient.[facility] DaytonIn the event this information is protected by the Federal Confidentiality of Alcohol and Drug Abuse Patient Records regulations: The Federal rules restrict any use of the information to criminally investigate or prosecute any alcohol or drug abuse patient.[facility] DaytonIn the event this information is protected by the Federal Confidentiality of Alcohol and Drug Abuse Patient Records regulations: The Federal rules restrict any use of the information to criminally investigate or prosecute any alcohol or drug abuse patient.[facility] DaytonIn the event this information is protected by the Federal Confidentiality of Alcohol and Drug Abuse Patient Records regulations: The Federal rules restrict any use of the information to criminally investigate or prosecute any alcohol or drug abuse patient.[facility]In the event this information is protected by the Federal Confidentiality of Alcohol and Drug Abuse Patient Records regulations: The Federal rules restrict any use of the information to criminally investigate or prosecute any alcohol or drug abuse patient.[facility] DaytonIn the event this information is protected by the Federal Confidentiality of Alcohol and Drug Abuse Patient Records regulations: The Federal rules restrict any use of the information to criminally investigate or prosecute any alcohol or drug abuse patient.[facility] DaytonIn the event this information is protected by the Federal Confidentiality of Alcohol and Drug Abuse Patient Records regulations: The Federal rules restrict any use of the information to criminally investigate or prosecute any alcohol or drug abuse patient.[facility] DaytonIn the event this information is protected by the Federal Confidentiality of Alcohol and Drug Abuse Patient Records regulations: The Federal rules restrict any use of the information to criminally investigate or prosecute any alcohol or drug abuse patient.[facility] DaytonIn the event this information is protected by the Federal Confidentiality of Alcohol and Drug Abuse Patient Records regulations: The Federal rules restrict any use of the information to criminally investigate or prosecute any alcohol or drug abuse patient.[facility] DaytonIn the event this information is protected by the Federal Confidentiality of Alcohol and Drug Abuse Patient Records regulations: The Federal rules restrict any use of the information to criminally investigate or prosecute any alcohol or drug abuse patient.[facility] DaytonIn the event this information is protected by the Federal Confidentiality of Alcohol and Drug Abuse Patient Records regulations: The Federal rules restrict any use of the information to criminally investigate or prosecute any alcohol or drug abuse patient.[facility] DaytonIn the event this information is protected by the Federal Confidentiality of Alcohol and Drug Abuse Patient Records regulations: The Federal rules restrict any use of the information to criminally investigate or prosecute any alcohol or drug abuse patient.[facility] DaytonIn the event this information is protected by the Federal Confidentiality of Alcohol and Drug Abuse Patient Records regulations: The Federal rules restrict any use of the information to criminally investigate or prosecute any alcohol or drug abuse patient.[facility] DaytonIn the event this information is protected by the Federal Confidentiality of Alcohol and Drug Abuse Patient Records regulations: The Federal rules restrict any use of the information to criminally investigate or prosecute any alcohol or drug abuse patient.[facility] DaytonIn the event this information is protected by the Federal Confidentiality of Alcohol and Drug Abuse Patient Records regulations: The Federal rules restrict any use of the information to criminally investigate or prosecute any alcohol or drug abuse patient.[facility] DaytonIn the event this information is protected by the Federal Confidentiality of Alcohol and Drug Abuse Patient Records regulations: The Federal rules restrict any use of the information to criminally investigate or prosecute any alcohol or drug abuse patient.[facility] DaytonIn the event this information is protected by the Federal Confidentiality of Alcohol and Drug Abuse Patient Records regulations: The Federal rules restrict any use of the information to criminally investigate or prosecute any alcohol or drug abuse patient.[facility] DaytonIn the event this information is protected by the Federal Confidentiality of Alcohol and Drug Abuse Patient Records regulations: The Federal rules restrict any use of the information to criminally investigate or prosecute any alcohol or drug abuse patient.[facility] DaytonIn the event this information is protected by the Federal Confidentiality of Alcohol and Drug Abuse Patient Records regulations: The Federal rules restrict any use of the information to criminally investigate or prosecute any alcohol or drug abuse patient.[facility] DaytonIn the event this information is protected by the Federal Confidentiality of Alcohol and Drug Abuse Patient Records regulations: The Federal rules restrict any use of the information to criminally investigate or prosecute any alcohol or drug abuse patient.[facility] DaytonIn the event this information is protected by the Federal Confidentiality of Alcohol and Drug Abuse Patient Records regulations: The Federal rules restrict any use of the information to criminally investigate or prosecute any alcohol or drug abuse patient.[facility] DaytonIn the event this information is protected by the Federal Confidentiality of Alcohol and Drug Abuse Patient Records regulations: The Federal rules restrict any use of the information to criminally investigate or prosecute any alcohol or drug abuse patient.[facility] DaytonIn the event this information is protected by the Federal Confidentiality of Alcohol and Drug Abuse Patient Records regulations: The Federal rules restrict any use of the information to criminally investigate or prosecute any alcohol or drug abuse patient.[facility] DaytonIn the event this information is protected by the Federal Confidentiality of Alcohol and Drug Abuse Patient Records regulations: The Federal rules restrict any use of the information to criminally investigate or prosecute any alcohol or drug abuse patient.[facility]In the event this information is protected by the Federal Confidentiality of Alcohol and Drug Abuse Patient Records regulations: The Federal rules restrict any use of the information to criminally investigate or prosecute any alcohol or drug abuse patient.[facility] DaytonIn the event this information is protected by the Federal Confidentiality of Alcohol and Drug Abuse Patient Records regulations: The Federal rules restrict any use of the information to criminally investigate or prosecute any alcohol or drug abuse patient.[facility] DaytonIn the event this information is protected by the Federal Confidentiality of Alcohol and Drug Abuse Patient Records regulations: The Federal rules restrict any use of the information to criminally investigate or prosecute any alcohol or drug abuse patient.[facility]In the event this information is protected by the Federal Confidentiality of Alcohol and Drug Abuse Patient Records regulations: The Federal rules restrict any use of the information to criminally investigate or prosecute any alcohol or drug abuse patient.[facility] DaytonIn the event this information is protected by the Federal Confidentiality of Alcohol and Drug Abuse Patient Records regulations: The Federal rules restrict any use of the information to criminally investigate or prosecute any alcohol or drug abuse patient.[facility] DaytonIn the event this information is protected by the Federal Confidentiality of Alcohol and Drug Abuse Patient Records regulations: The Federal rules restrict any use of the information to criminally investigate or prosecute any alcohol or drug abuse patient.[facility] DaytonIn the event this information is protected by the Federal Confidentiality of Alcohol and Drug Abuse Patient Records regulations: The Federal rules restrict any use of the information to criminally investigate or prosecute any alcohol or drug abuse patient.[facility] DaytonIn the event this information is protected by the Federal Confidentiality of Alcohol and Drug Abuse Patient Records regulations: The Federal rules restrict any use of the information to criminally investigate or prosecute any alcohol or drug abuse patient.[facility] DaytonIn the event this information is protected by the Federal Confidentiality of Alcohol and Drug Abuse Patient Records regulations: The Federal rules restrict any use of the information to criminally investigate or prosecute any alcohol or drug abuse patient.[facility]In the event this information is protected by the Federal Confidentiality of Alcohol and Drug Abuse Patient Records regulations: The Federal rules restrict any use of the information to criminally investigate or prosecute any alcohol or drug abuse patient.[facility]In the event this information is protected by the Federal Confidentiality of Alcohol and Drug Abuse Patient Records regulations: The Federal rules restrict any use of the information to criminally investigate or prosecute any alcohol or drug abuse patient.[facility] DaytonIn the event this information is protected by the Federal Confidentiality of Alcohol and Drug Abuse Patient Records regulations: The Federal rules restrict any use of the information to criminally investigate or prosecute any alcohol or drug abuse patient.[facility]In the event this information is protected by the Federal Confidentiality of Alcohol and Drug Abuse Patient Records regulations: The Federal rules restrict any use of the information to criminally investigate or prosecute any alcohol or drug abuse patient.[facility] DaytonIn the event this information is protected by the Federal Confidentiality of Alcohol and Drug Abuse Patient Records regulations: The Federal rules restrict any use of the information to criminally investigate or prosecute any alcohol or drug abuse patient.[facility] DaytonIn the event this information is protected by the Federal Confidentiality of Alcohol and Drug Abuse Patient Records regulations: The Federal rules restrict any use of the information to criminally investigate or prosecute any alcohol or drug abuse patient.[facility]In the event this information is protected by the Federal Confidentiality of Alcohol and Drug Abuse Patient Records regulations: The Federal rules restrict any use of the information to criminally investigate or prosecute any alcohol or drug abuse patient.[facility]In the event this information is protected by the Federal Confidentiality of Alcohol and Drug Abuse Patient Records regulations: The Federal rules restrict any use of the information to criminally investigate or prosecute any alcohol or drug abuse patient.[facility]In the event this information is protected by the Federal Confidentiality of Alcohol and Drug Abuse Patient Records regulations: The Federal rules restrict any use of the information to criminally investigate or prosecute any alcohol or drug abuse patient.[facility]In the event this information is protected by the Federal Confidentiality of Alcohol and Drug Abuse Patient Records regulations: The Federal rules restrict any use of the information to criminally investigate or prosecute any alcohol or drug abuse patient.[facility]In the event this information is protected by the Federal Confidentiality of Alcohol and Drug Abuse Patient Records regulations: The Federal rules restrict any use of the information to criminally investigate or prosecute any alcohol or drug abuse patient.[facility]In the event this information is protected by the Federal Confidentiality of Alcohol and Drug Abuse Patient Records regulations: The Federal rules restrict any use of the information to criminally investigate or prosecute any alcohol or drug abuse patient.[facility] DaytonIn the event this information is protected by the Federal Confidentiality of Alcohol and Drug Abuse Patient Records regulations: The Federal rules restrict any use of the information to criminally investigate or prosecute any alcohol or drug abuse patient.[facility]In the event this information is protected by the Federal Confidentiality of Alcohol and Drug Abuse Patient Records regulations: The Federal rules restrict any use of the information to criminally investigate or prosecute any alcohol or drug abuse patient.[facility]In the event this information is protected by the Federal Confidentiality of Alcohol and Drug Abuse Patient Records regulations: The Federal rules restrict any use of the information to criminally investigate or prosecute any alcohol or drug abuse patient.[facility]In the event this information is protected by the Federal Confidentiality of Alcohol and Drug Abuse Patient Records regulations: The Federal rules restrict any use of the information to criminally investigate or prosecute any alcohol or drug abuse patient.[facility]In the event this information is protected by the Federal Confidentiality of Alcohol and Drug Abuse Patient Records regulations: The Federal rules restrict any use of the information to criminally investigate or prosecute any alcohol or drug abuse patient.[facility]In the event this information is protected by the Federal Confidentiality of Alcohol and Drug Abuse Patient Records regulations: The Federal rules restrict any use of the information to criminally investigate or prosecute any alcohol or drug abuse patient.[facility]In the event this information is protected by the Federal Confidentiality of Alcohol and Drug Abuse Patient Records regulations: The Federal rules restrict any use of the information to criminally investigate or prosecute any alcohol or drug abuse patient.[facility] DaytonIn the event this information is protected by the Federal Confidentiality of Alcohol and Drug Abuse Patient Records regulations: The Federal rules restrict any use of the information to criminally investigate or prosecute any alcohol or drug abuse patient.[facility] DaytonIn the event this information is protected by the Federal Confidentiality of Alcohol and Drug Abuse Patient Records regulations: The Federal rules restrict any use of the information to criminally investigate or prosecute any alcohol or drug abuse patient.[facility] DaytonIn the event this information is protected by the Federal Confidentiality of Alcohol and Drug Abuse Patient Records regulations: The Federal rules restrict any use of the information to criminally investigate or prosecute any alcohol or drug abuse patient.[facility] DaytonIn the event this information is protected by the Federal Confidentiality of Alcohol and Drug Abuse Patient Records regulations: The Federal rules restrict any use of the information to criminally investigate or prosecute any alcohol or drug abuse patient.[facility] DaytonIn the event this information is protected by the Federal Confidentiality of Alcohol and Drug Abuse Patient Records regulations: The Federal rules restrict any use of the information to criminally investigate or prosecute any alcohol or drug abuse patient.[facility] DaytonIn the event this information is protected by the Federal Confidentiality of Alcohol and Drug Abuse Patient Records regulations: The Federal rules restrict any use of the information to criminally investigate or prosecute any alcohol or drug abuse patient.[facility] DaytonIn the event this information is protected by the Federal Confidentiality of Alcohol and Drug Abuse Patient Records regulations: The Federal rules restrict any use of the information to criminally investigate or prosecute any alcohol or drug abuse patient.[facility] DaytonIn the event this information is protected by the Federal Confidentiality of Alcohol and Drug Abuse Patient Records regulations: The Federal rules restrict any use of the information to criminally investigate or prosecute any alcohol or drug abuse patient.[facility] DaytonIn the event this information is protected by the Federal Confidentiality of Alcohol and Drug Abuse Patient Records regulations: The Federal rules restrict any use of the information to criminally investigate or prosecute any alcohol or drug abuse patient.[facility] DaytonIn the event this information is protected by the Federal Confidentiality of Alcohol and Drug Abuse Patient Records regulations: The Federal rules restrict any use of the information to criminally investigate or prosecute any alcohol or drug abuse patient.[facility] DaytonIn the event this information is protected by the Federal Confidentiality of Alcohol and Drug Abuse Patient Records regulations: The Federal rules restrict any use of the information to criminally investigate or prosecute any alcohol or drug abuse patient.[facility] DaytonIn the event this information is protected by the Federal Confidentiality of Alcohol and Drug Abuse Patient Records regulations: The Federal rules restrict any use of the information to criminally investigate or prosecute any alcohol or drug abuse patient.[facility] DaytonIn the event this information is protected by the Federal Confidentiality of Alcohol and Drug Abuse Patient Records regulations: The Federal rules restrict any use of the information to criminally investigate or prosecute any alcohol or drug abuse patient.[facility] DaytonIn the event this information is protected by the Federal Confidentiality of Alcohol and Drug Abuse Patient Records regulations: The Federal rules restrict any use of the information to criminally investigate or prosecute any alcohol or drug abuse patient.[facility] DaytonIn the event this information is protected by the Federal Confidentiality of Alcohol and Drug Abuse Patient Records regulations: The Federal rules restrict any use of the information to criminally investigate or prosecute any alcohol or drug abuse patient.[facility] DaytonIn the event this information is protected by the Federal Confidentiality of Alcohol and Drug Abuse Patient Records regulations: The Federal rules restrict any use of the information to criminally investigate or prosecute any alcohol or drug abuse patient.[facility] DaytonIn the event this information is protected by the Federal Confidentiality of Alcohol and Drug Abuse Patient Records regulations: The Federal rules restrict any use of the information to criminally investigate or prosecute any alcohol or drug abuse patient.[facility] DaytonIn the event this information is protected by the Federal Confidentiality of Alcohol and Drug Abuse Patient Records regulations: The Federal rules restrict any use of the information to criminally investigate or prosecute any alcohol or drug abuse patient.[facility] DaytonIn the event this information is protected by the Federal Confidentiality of Alcohol and Drug Abuse Patient Records regulations: The Federal rules restrict any use of the information to criminally investigate or prosecute any alcohol or drug abuse patient.[facility] DaytonIn the event this information is protected by the Federal Confidentiality of Alcohol and Drug Abuse Patient Records regulations: The Federal rules restrict any use of the information to criminally investigate or prosecute any alcohol or drug abuse patient.[facility] DaytonIn the event this information is protected by the Federal Confidentiality of Alcohol and Drug Abuse Patient Records regulations: The Federal rules restrict any use of the information to criminally investigate or prosecute any alcohol or drug abuse patient.[facility] DaytonIn the event this information is protected by the Federal Confidentiality of Alcohol and Drug Abuse Patient Records regulations: The Federal rules restrict any use of the information to criminally investigate or prosecute any alcohol or drug abuse patient.[facility] DaytonIn the event this information is protected by the Federal Confidentiality of Alcohol and Drug Abuse Patient Records regulations: The Federal rules restrict any use of the information to criminally investigate or prosecute any alcohol or drug abuse patient.[facility] DaytonIn the event this information is protected by the Federal Confidentiality of Alcohol and Drug Abuse Patient Records regulations: The Federal rules restrict any use of the information to criminally investigate or prosecute any alcohol or drug abuse patient.[facility] DaytonIn the event this information is protected by the Federal Confidentiality of Alcohol and Drug Abuse Patient Records regulations: The Federal rules restrict any use of the information to criminally investigate or prosecute any alcohol or drug abuse patient.[facility] DaytonIn the event this information is protected by the Federal Confidentiality of Alcohol and Drug Abuse Patient Records regulations: The Federal rules restrict any use of the information to criminally investigate or prosecute any alcohol or drug abuse patient.[facility] DaytonIn the event this information is protected by the Federal Confidentiality of Alcohol and Drug Abuse Patient Records regulations: The Federal rules restrict any use of the information to criminally investigate or prosecute any alcohol or drug abuse patient.[facility] DaytonIn the event this information is protected by the Federal Confidentiality of Alcohol and Drug Abuse Patient Records regulations: The Federal rules restrict any use of the information to criminally investigate or prosecute any alcohol or drug abuse patient.[facility] DaytonIn the event this information is protected by the Federal Confidentiality of Alcohol and Drug Abuse Patient Records regulations: The Federal rules restrict any use of the information to criminally investigate or prosecute any alcohol or drug abuse patient.[facility] DaytonIn the event this information is protected by the Federal Confidentiality of Alcohol and Drug Abuse Patient Records regulations: The Federal rules restrict any use of the information to criminally investigate or prosecute any alcohol or drug abuse patient.[facility] DaytonIn the event this information is protected by the Federal Confidentiality of Alcohol and Drug Abuse Patient Records regulations: The Federal rules restrict any use of the information to criminally investigate or prosecute any alcohol or drug abuse patient.[facility] DaytonIn the event this information is protected by the Federal Confidentiality of Alcohol and Drug Abuse Patient Records regulations: The Federal rules restrict any use of the information to criminally investigate or prosecute any alcohol or drug abuse patient.[facility] DaytonIn the event this information is protected by the Federal Confidentiality of Alcohol and Drug Abuse Patient Records regulations: The Federal rules restrict any use of the information to criminally investigate or prosecute any alcohol or drug abuse patient.[facility] DaytonIn the event this information is protected by the Federal Confidentiality of Alcohol and Drug Abuse Patient Records regulations: The Federal rules restrict any use of the information to criminally investigate or prosecute any alcohol or drug abuse patient.[facility] DaytonIn the event this information is protected by the Federal Confidentiality of Alcohol and Drug Abuse Patient Records regulations: The Federal rules restrict any use of the information to criminally investigate or prosecute any alcohol or drug abuse patient.[facility] DaytonIn the event this information is protected by the Federal Confidentiality of Alcohol and Drug Abuse Patient Records regulations: The Federal rules restrict any use of the information to criminally investigate or prosecute any alcohol or drug abuse patient.[facility] DaytonIn the event this information is protected by the Federal Confidentiality of Alcohol and Drug Abuse Patient Records regulations: The Federal rules restrict any use of the information to criminally investigate or prosecute any alcohol or drug abuse patient.[facility] DaytonIn the event this information is protected by the Federal Confidentiality of Alcohol and Drug Abuse Patient Records regulations: The Federal rules restrict any use of the information to criminally investigate or prosecute any alcohol or drug abuse patient.[facility] Reason for Visit (unrecogniz ed section and content) Reason Comments Spirometry Specialty Diagnoses / Procedures Referred By Contriley t Referred To Contact [facility] Diagnoses Moderate COPD (chronic obstructive pulmonary disease) (HCC) Procedures SPIROMETRY WITH DILATOR IF OBSTRUCTED BRNCDILAT RSPSE SPMTRY PRE&POST-BRNCDILAT Laith Lew MD [address] [place] [address] [facility] [place] [address] [place] [address] Referral ID Status Reason Start Date Expiration Date V isits Requested Visits Authorized [id number] Closed Auto-Generate d Referral 05/23/2023 06/21/2024 1 1 Reason Comments Recheck Follow up pneumonia Specialty Diagnoses / Procedures Referred By Contac t Referred To Contact Internal Medicine / INTERNAL MEDICINE Diagnoses Follow-up exam 3 month follow up Procedures OFFICE/OUTPATIENT ESTABLISHED HIGH MDM 40-54 MIN 4C EST Minerva Shaver MD [address] [place] [id number] Minerva Shaver MD [address] [place] [address] Referral ID Status Reason Start Date Expiration Date V isits Requested Visits Authorized [id number] Authorized 09/24/2021 05/11/2022 99 99 Reason Comments Results Reason Comments Consult Specialty Diagnoses / Procedures Referred By Contac t Referred To Contact GUN CLUB MANAGER Diagnoses CONCERN - PROLAPSE Procedures OFFICE/OUTPATIENT ESTABLISHED LOW MDM 20-29 MIN EST WHI PATIENT Self Lindsay Gongora MD [address] [place] [phone] Referral ID Status Reason Start Date Expiration Date Visits Re quested Visits Authorized [id number] Closed 09/21/2021 05/11/2022 1 1 Reason Comments Patient Update Reason Comments Preparations For Surgery Reason Comments Consult Specialty Diagnoses / Procedures Referred By Contact Referred To Contact Anesthesiology / ANESTHESIOLOGY Diagnoses 01/01 no surgery scheduled main [place] [address] [place] [address] 1, [place] [phone] Referral ID Status Reason Start Date Expiration Date Visits Re quested Visits Authorized [id number] Closed 12/19/2021 03/19/2022 1 1 Reason Comments Pre-Op Visit Specialty Diagnoses / Procedures Referred By Contac t Referred To Contact Gynecology / UROL ACT ENGLISH TUTOR Diagnoses pre op teaching Procedures PHYS/QHP TELEPHONE EVALUATION 11-20 MIN TELEVISIT Qiana Pizarro MD [address] [place] [address] Irma Adair, ALUMNI RELATIONS COORDINATOR.[employer] [address] [place] [address] x2 Referral ID Status Reason Start Date Expiration Date V isits Requested Visits Authorized [id number] Authorized 12/24/2021 05/11/2022 99 99 Reason Comments Radiology US Specialty Diagnoses / Procedures Referred By Contac t Referred To Contact US IMAGING Diagnoses 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 Cystocele, midline Rectocele Incomplete uterovaginal prolapse Preoperative examination Overactive bladder Procedures US FEMALE PELVIS TRANSVAG US TRANSVAGINAL Qiana Pizarro MD [address] [place] [address] Us Imaging Referral ID Status Reason Start Date Expiration Date V isits Requested Visits Authorized [id number] Closed Auto-Generate d Referral 12/04/2021 01/03/2023 1 1 Reason Comments Patient Update Surgery instructions Reason Comments Vaginal Problem Specialty Diagnoses / Procedures Referred By Contac t Referred To Contact GUN CLUB MANAGER / UROL ACT ENGLISH TUTOR Diagnoses pre op Procedures PHYS/QHP TELEPHONE EVALUATION 5-10 MIN PHYS/QHP TELEPHONE EVALUATION 11-20 MIN PHYS/QHP TELEPHONE EVALUATION 21-30 MIN PROVIDER SPECIALTY PHONE CALL Errol, Qiana Emerson MD [address] [place] [address] Referral ID Status Reason Start Date Expiration Date Visits Re quested Visits Authorized [id number] Closed 12/07/2021 05/11/2022 1 1 Reason Comments Post Op Pain Reason Onset Date Comments F/U 3 months Immunizations 01/21/2022 Flu vaccination Reason Comments Future Appointment Reason Comments Sore Throat Specialty Diagnoses / Procedures Referred By Contac t Referred To Contact Internal Medicine / INTERNAL MEDICINE Diagnoses sore throat x 3 days Procedures 4C EST Self Minerva Shaver MD [facility] [place] [address] Referral ID Status Reason Start Date Expiration Date Visits Re quested Visits Authorized [id number] Closed 02/22/2022 05/23/2022 1 1 Reason Comments Recheck Follow up Specialty Diagnoses / Procedures Referred By Contac t Referred To Contact Internal Medicine / INTERNAL MEDICINE Diagnoses Follow up pneumonia Procedures 4C Minerva Etienne MD [address] [place] [address] Dianna Ballard APRN.BOILERMAKER SHIP [address] [place] [address] Referral ID Status Reason Start Date Expiration Date Visits Re quested Visits Authorized [id number] Closed 03/18/2022 06/16/2022 1 1 Reason Comments [...] 4C EST HOSP/ER FU Self Hodan Stevens APRN.BOILERMAKER SHIP [address] [place] [address] Referral ID Status Reason Start Date Expiration Date Visits Re quested Visits Authorized [id number] Closed 04/29/2022 05/11/2022 1 1 Reason Comments Results Reason Comments fax referral to outside Reason Comments Recheck Follow up, review re sults Specialty Diagnoses / Procedures Referred By Contac t Referred To Contact Internal Medicine / INTERNAL MEDICINE Diagnoses Follow-up exam US follow up Procedures OFFICE/OUTPATIENT ESTABLISHED MOD MDM 30-39 MIN 4C Minerva Etienne MD [address] [place], [place] [id number] Dianna Ballard APRN.BOILERMAKER SHIP [address] [place] [id number] Referral ID Status Reason Start Date Expiration Date Visits Re quested Visits Authorized [id number] Closed 05/09/2022 05/11/2023 1 1 Reason Comments Patient Update Reason Comments Recheck Follow up, review la bs Reason Comments Consult Hiatal hernia Specialty Diagnoses / Procedures Referred By Contac t Referred To Contact General Surgery / GENERAL SURGERY Diagnoses Hiatal hernia with GERD without esophagitis Procedures CONSULT TO GENERAL SURGERY OFFICE/OUTPATIENT NEW HIGH MDM 60-74 MINUTES Dianna Ballard APRN.[employer] [address] [place] [address] [facility] [address] [place] [phone] Referral ID Status Reason Start Date Expiration Date V isits Requested Visits Authorized [id number] Closed PCP Requested Referral 05/17/2022 05/17/2023 1 1 Reason Comments 2 week follow-up Specialty Diagnoses / Procedures Referred By Contac t Referred To Contact Internal Medicine / INTERNAL MEDICINE Diagnoses 2 week follow up Procedures OFFICE/OUTPATIENT ESTABLISHED MOD MDM 30-39 MIN 4C EST Self Minerva Shaver MD [address] [place] [address] Referral ID Status Reason Start Date Expiration Date Visits Re quested Visits Authorized [id number] Closed 06/08/2022 05/11/2023 1 1 Reason Comments [...] 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 [facility]. Specialty Diagnoses / Procedures Referred By Contac t Referred To Contact Neurology Diagnoses Cerebrovascular accident (CVA), unspecified mechanism (HCC) Dianna Ballard CNP [address] [place] [address] [facility] Referral ID Status Reason Start Date Expiration Date V isits Requested Visits Authorized [id number] Pending Review 08/19/2022 08/19/2023 1 1 Reason Onset Date Comments Medication Refill 09/13/2022 Reason Comments Established Patient Reason Comments Recheck 2 month Reason Comments Recheck Follow up, fever Reason Comments Hospital F/U SOB, hospital follow up-pneumonia, CHF Reason Comments Follow Up 1 week follow up- in a fib, dizziness, leg swelling, SOB, fatigue Specialty Diagnoses / Procedures Referred By Contac t Referred To Contact PULMONARY MEDICINE Diagnoses COPD (chronic obstructive pulmonary disease) (HCC) Procedures OFFICE CONSULTATION NEW/ESTAB PATIENT 15 MIN Older, SORAYA Snow.BOIL[employer]MAKER SHIP [address] [place] [address] [facility] [address] [place] [address] Referral ID Status Reason Start Date Expiration Date V isits Requested Visits Authorized [id number] Closed OON/Self Pay Override 01/27/2023 05/11/2023 1 1 Reason Comments New Patient COPD Specialty Diagnoses / Procedures Referred By Contac t Referred To Contact PULMONARY MEDICINE Diagnoses COPD (chronic obstructive pulmonary disease) (HCC) Procedures OFFICE CONSULTATION NEW/ESTAB PATIENT 15 MIN Older, SORAYA Snow.BOIL[employer]MAKER SHIP [address] [place] [address] [facility] [address] [place] [address] Reason Comments Hospital F/U Reason Comments Recheck Follow up Reason Comments Follow Up Specialty Diagnoses / Procedures Referred By Contac t Referred To Contact INTERNAL MEDICINE Diagnoses follow up Procedures OFFICE CONSULTATION NEW/ESTAB PATIENT 15 MIN Юлия Oden MD [address] [place] [address] [facility] [address] [place] [address] Referral ID Status Reason Start Date Expiration Date Visits Requested Visits Authorized [id number] Pending Review OON/Self Pay Override 01/23/2023 07/22/2023 1 1 Reason Comments Medication Clarification Reason Comments Follow Up return to work tomor presley and needs handicap placard Specialty Diagnoses / Procedures [facility] Referred To Contact FAMILY MEDICINE Diagnoses f/u Procedures f/u Minerva Shaver MD [address] [place] [address] [facility] [address] [place] [address] Referral ID Status Reason Start Date Expiration Date Visits Requested Visits Authorized [id number] Pending Review OON/Self Pay Override 02/10/2023 08/09/2023 [address] Specialty Diagnoses / Procedures Referred By [facility] Referred To Contact [facility] IMAGING Diagnoses Hiatal hernia with GERD without esophagitis Personal history of colonic polyps Procedures CT ABD/PEL WO IVCON CT ABD & PELVIS W/O CONTRAST Katheryn Stokes MD [address] [place] [address] Ct Imaging [id number] Referral ID Status Reason Start Date Expiration Date V isits Requested Visits Authorized [id number] Closed Auto-Generate d Referral 05/24/2022 05/11/2023 2 2 Specialty Diagnoses / Procedures Referred By [facility] Referred To Contact CT IMAGING Diagnoses Left lower quadrant abdominal pain Right lower quadrant abdominal tenderness without rebound tenderness Bowel habit changes Blood in stool Procedures CT ABD/PEL W IVCON CT ABD & PELVIS W/CONTRAST Dianna Ballard APRN.BO[employer]MAKER SHIP [address] [place] [phone] [place] [address] Referral ID Status Reason Start Date Expiration Date V isits Requested Visits Authorized [id number] Closed Auto-Generate d Referral 12/26/2022 01/25/2023 1 1 Reason Comments Covid19 Concern Reason Comments Results Nocturnal oximetry Reason Onset Date Comments Refill Request 03/23/2023 Reason Comments Refill Request Reason Comments Recheck 3 month follow up Reason Onset Date Comments Refill Request 07/14/2023 Reason Onset Date Comments Refill Request 08/02/2023 Reason Onset Date Comments Refill Request 10/23/2023 Specialty Diagnoses / Procedures Referred By Contac t Referred To Contact [facility] Diagnoses xray Procedures XRAY EXAM OF RIBS/CHEST TC Minerva Shaver MD [address] [place] [address] [facility] [address] [place] [id number] Referral ID Status Reason Start Date Expiration Date V isits Requested Visits Authorized [id number] Closed OON/Self Pay Override 01/23/2023 05/11/2023 1 1 Specialty Diagnoses / Procedures Referred By Contac t Referred To Contact Radiology / [facility] Diagnoses Fever, unspecified fever cause SOB (shortness of breath) ML Procedures RADIOLOGIC EXAM CHEST 2 VIEWS XR CHEST Minerva hSaver MD [address] [place] [address] [facility] [address] [place] [address] Referral ID Status Reason Start Date Expiration Date Visits Re quested Visits Authorized [id number] Closed 05/15/2022 05/11/2023 1 1 Specialty Diagnoses / Procedures Referred By Contac t Referred To Contact Radiology / [facility] Diagnoses ML Procedures XR CHEST Minerva Shaver MD [address] [place] [address] [facility] [address] [place] [id number] Referral ID Status Reason Start Date Expiration Date Visits Re quested Visits Authorized [id number] Closed 04/18/2022 05/11/2022 1 1 Reason Comments Forms Reason Comments 08/18/2023 EGD HART Reason Comments Medicare Wellness Exam Specialty Diagnoses / Procedures Referred By Contac t Referred To Contact Diagnoses Persistent atrial fibrillation Procedures CT CARDIAC PULMONARY VENOGRAM CHG CT HEART CONTRAST EVAL CARDIAC STRUCTURE&MORPH Alli Hernandez MD [address] [place] [address] Referral ID Status Reason Start Date Expiration Date Visits Re quested Visits Authorized [id number] Closed 03/08/2024 04/02/2025 1 1 Reason Comments Medication Question Reason Comments Established Patient COPD COPD Reason Comments Results Orders Chest CT Reason Comments Cough Diarrhea Reason Comments Chest Congestion cough, fever and chi lls x 2 days Reason Comments Rad[address] Specialty Diagnoses / Procedures Referred By Contac t Referred To Contact CT IMAGING Diagnoses Lung nodules Centrilobular emphysema (HCC) Former cigarette smoker Procedures CT CHEST WO IVCON DIAGNOSTIC COMPUTED TOMOGRAPHY THORAX W/O Laith Bolden MD [address] [place] [address] Phone: tel: fax: [place] [address] Referral ID Status Reason Start Date Expiration Date V isits Requested Visits Authorized [id number] Closed Auto-Generate d Referral 07/06/2024 05/11/2025 1 1 Reason Comments Recheck Urgent Care follow u p Reason Comments Recheck 1 week follow up Reason Onset Date Comments ACM JOSÉ MIGUEL RN 08/05/2024 Chart review review per request of payor Reason Onset Date Comments Refill Request 08/06/2024 Reason Onset Date Comments Population Health Navigation Outreach 08/11/2024 [employer] [facility] Reason Comments Dizziness Vertigo x 6 days Reason Comments note for work Reason Comments Received Outside Medical Records Reason Onset Date Comments Refill Request 10/20/2024 Reason Comments Recheck Hospital follow up Care Teams (unrecognized sec tion and content) Comprehensive Advisor Relationship Specialty Start Date End Date Minerva hSaver MD [address] [place], [place] [id number] PCP - General Internal Medicine 09/25/15 Maxim Ibarra Specialty Component Overhaul Operator Cardiology 03/19/13 Comprehensive Advisor Relationship Specialty Start Date End Date Minerva Shaver MD [address] [place], [place] [id number] PCP - General Internal Medicine 09/25/15 Fred, [place] S Specialty Component Overhaul Operator Cardiology 03/19/13 Comprehensive Advisor Relationship Specialty Start Date End Date Minerva Shaver MD [address] [place] [address] PCP - General Internal Medicine 09/25/15 Fred, [place] S Specialty Component Overhaul Operator Cardiology 03/19/13 Comprehensive Advisor Relationship Specialty Start Date End Date Minerva Shaver MD [address] [place] [address] PCP - General Internal Medicine 09/25/15 Fred, Maxim S Specialty Component Overhaul Operator Cardiology 03/19/13 Comprehensive Advisor Relationship Specialty Start Date End Date Minerva Shaver MD [address] [place] [address] PCP - General Internal Medicine 09/25/15 Fred, Maxim S Specialty Component Overhaul Operator Cardiology 03/19/13 Comprehensive Advisor Relationship Specialty Start Date End Date Minerva Shaver MD [address] [place] [address] PCP - General Internal Medicine 09/25/15 Fred, Maxim S Specialty Component Overhaul Operator Cardiology 03/19/13 Comprehensive Advisor Relationship Specialty Start Date End Date Minerva Shaver MD [address] [place] [address] PCP - General Internal Medicine 09/25/15 Fred, Maxim S Specialty Component Overhaul Operator Cardiology 03/19/13 Comprehensive Advisor Relationship Specialty Start Date End Date Minerva Shaver MD [address] [facility] [address] PCP - General Internal Medicine 09/25/15 Fred, [place] S Specialty Component Overhaul Operator Cardiology 03/19/13 Comprehensive Advisor Relationship Specialty Start Date End Date Minerva Shaver MD [address] [facility] [place] [address] PCP - General Internal Medicine 09/25/15 Fred, Maxim S Specialty Component Overhaul Operator Cardiology 03/19/13 Comprehensive Advisor Relationship Specialty Start Date End Date Minerva Shaver MD [address] [place] [address] PCP - General Internal Medicine 09/25/15 Fred, [place] S Specialty Component Overhaul Operator Cardiology 03/19/13 Comprehensive Advisor Relationship Specialty Start Date End Date Minerva Shaver MD [address] [place] [address] PCP - General Internal Medicine 09/25/15 Fred, [place] S Specialty Component Overhaul Operator Cardiology 03/19/13 Comprehensive Advisor Relationship Specialty Start Date End Date Minerva Shaver MD [address] [place] [address] PCP - General Internal Medicine 09/25/15 Fred, [place] S Specialty Component Overhaul Operator Cardiology 03/19/13 Comprehensive Advisor Relationship Specialty Start Date End Date Minerva Shaver MD [address] [place] [address] PCP - General Internal Medicine 09/25/15 Fred, Maxim S Specialty Component Overhaul Operator Cardiology 03/19/13 Comprehensive Advisor Relationship Specialty Start Date End Date Minerva Shaver MD [address] [facility] [address] PCP - General Internal Medicine 09/25/15 Fred, [place] S Specialty Component Overhaul Operator Cardiology 03/19/13 Comprehensive Advisor Relationship Specialty Start Date End Date Minerva Shaver MD [address] [facility] [address] PCP - General Internal Medicine 09/25/15 Fred, Maxim S Specialty Component Overhaul Operator Cardiology 03/19/13 Comprehensive Advisor Relationship Specialty Start Date End Date Minerva Shaver MD [address] [place] [address] PCP - General Internal Medicine 09/25/15 Fred, [place] S Specialty Component Overhaul Operator Cardiology 03/19/13 Comprehensive Advisor Relationship Specialty Start Date End Date Minerva Shaver MD [address] [facility] [address] PCP - General Internal Medicine 09/25/15 Fred, [place] S Specialty Component Overhaul Operator Cardiology 03/19/13 Comprehensive Advisor Relationship Specialty Start Date End Date Minerva Shaver MD [address] [place] [address] PCP - General Internal Medicine 09/25/15 Fred, Maxim S Specialty Component Overhaul Operator Cardiology 03/19/13 Comprehensive Advisor Relationship Specialty Start Date End Date Minerva Shaver MD [address] [place] [address] PCP - General Internal Medicine 09/25/15 Fred, [place] S Specialty Component Overhaul Operator Cardiology 03/19/13 Comprehensive Advisor Relationship Specialty Start Date End Date Minerva Shaver MD [address] [place] [address] PCP - General Internal Medicine 09/25/15 Fred, Maxim S Specialty Component Overhaul Operator Cardiology 03/19/13 Comprehensive Advisor Relationship Specialty Start Date End Date Minerva Shaver MD [address] [place] [address] PCP - General Internal Medicine 09/25/15 Fred, [place] S Specialty Component Overhaul Operator Cardiology 03/19/13 Comprehensive Advisor Relationship Specialty Start Date End Date Minerva Shaver MD [address] [place] [address] PCP - General Internal Medicine 09/25/15 Fred, [place] S Specialty Component Overhaul Operator Cardiology 03/19/13 Comprehensive Advisor Relationship Specialty Start Date End Date Minerva Shaver MD [address] [place] [address] PCP - General Internal Medicine 09/25/15 Fred, Maxim S Specialty Component Overhaul Operator Cardiology 03/19/13 Comprehensive Advisor Relationship Specialty Start Date End Date Minerva Shaver MD [address] [place] [address] PCP - General Internal Medicine 09/25/15 Fred, [place] S Specialty Component Overhaul Operator Cardiology 03/19/13 Comprehensive Advisor Relationship Specialty Start Date End Date Minerva Shaver MD [address] [place], [place] [address] PCP - General Internal Medicine 09/25/15 Fred, Maxim S Specialty Component Overhaul Operator Cardiology 03/19/13 Comprehensive Advisor Relationship Specialty Start Date End Date Minerva Shaver MD [address] [place] [address] PCP - General Internal Medicine 09/25/15 Fred, Maxim S Specialty Component Overhaul Operator Cardiology 03/19/13 Team Status: Active Member Role Status Dates Dr. Minerva Shaver MD Family Provider Active Dr. Minerva Shaver MD Primary Care Provider Active Team Status: Active Member Role Status Dates Dr. Minerva Shaver MD Primary Care Provider Active Dr. Maxim Ibarra MD Attending Provider, Referring Provider, Other Provider Active Team Status: Inactive Member Role Status Dates Dr. Minerva Shaver MD Primary Care Provider, Referring Provider Active Dr. Jovanni Schofield DO Attending Provider Active Team Status: Inactive Member Role Status Dates Dr. Minerva Shaver MD Primary Care Provider Active Dr. Maxim Ibarra MD Attending Provider, Referring Pro vider Active Team Status: Inactive Member Role Status Dates Dr. Minerva Shaver MD Primary Care Provider Active Dr. Omid Moreno MD Attending Provider, Referring Pr ovider Active Team Status: Inactive Member Role Status Dates Dr. Minerva Shaver MD Primary Care Provider Active Dr. Sara Hilton DO Attending Provider, Emergency P rose Active Team Status: Inactive Member Role Status Dates Dr. Minerva Shaver MD Primary Care Provider Active Hodan Stevens FORMULATOR, FORMULATOR-C Attending Provider, Referring Pr ovider Active Team Status: Inactive Member Role Status Dates Dr. Minerva Shaver MD Primary Care Provider Active Dr. Maxim Ibarra MD Attending Provider, Referring Pro vider Active Nagi Freeman FORMULATOR, FORMULATOR-C Other Provider Active Team Status: Inactive Member Role Status Dates Dr. Minerva Shaver MD Primary Care Provider, Referring Provider Active Caterina Bro FORMULATOR, FORMULATOR-C Attending Provider Active Team Status: Inactive Member Role Status Dates Dr. Minerva Shaver MD Primary Care Provider Active Caterina Bro FORMULATOR, FORMULATOR-C Attending Provider Active Team Status: Active Member Role Status Dates Dr. Minerva Shaver MD Primary Care Provider Active Dr. Maxim Ibarra MD Attending Provider Active Team Status: Active Member Role Status Dates Dr. Minerva Shaver MD Primary Care Provider Active Dr. Maixm Ibarra MD Attending Provider, Referring Pro vider Active Team Status: Active Member Role Status Dates Dr. Minerva Shaver MD Primary Care Provider Active Dr. Wilian Dempsey MD Emergency Provider Active Dr. Farhad Hall DO Admit Provider, Attending Provid er, Other Provider Active Team Status: Active Member Role Status Dates Dr. Minerva Shaver MD Primary Care Provider Active Caterina Bro FORMULATOR, FORMULATOR-C Attending Provider, Referring P rovider Active Team Status: Active Member Role Status Dates Dr. Minerva Shaver MD Primary Care Provider Active Dr. Wilian Dempsey MD Emergency Provider Active Dr. Farhad Hall DO Admit Provider, Attending Provid er Active Team Status: Inactive Member Role Status Dates Dr. Minerva Shaver MD Primary Care Provider Active Dr. Maxim Ibarra MD Attending Provider Active Team Status: Inactive Member Role Status Dates Dr. Minerva Shaver MD Primary Care Provider Active Caterina Bro FORMULATOR, FORMULATOR-C Attending Provider, Referring P rovider Active Team Status: Inactive Member Role Status Dates Dr. Minerva Shaver MD Primary Care Provider Active Dr. Wilian Dempsey MD Emergency Provider Active Dr. Farhad Hall DO Admit Provider, Attending Provid er Active Comprehensive Advisor Relationship Specialty Start Date End Date Minerva Shaver MD [address] [place] [address] PCP - General Internal Medicine 08/19/22 Team Status: Active Member Role Status Dates Dr. Minerva Shaver MD Primary Care Provider Active Dr. Mike Lynne MD Attending Provider, Refe rring Provider Active Comprehensive Advisor Relationship Specialty Start Date End Date Minerva Shaver MD [address] [place] [address] PCP - General Internal Medicine 09/25/15 FredStephen del rioril S Specialty Component Overhaul Operator Cardiology 03/19/13 Comprehensive Advisor Relationship Specialty Start Date End Date Minerva Shaver MD [address] [place] [address] PCP - General Internal Medicine 08/19/22 Comprehensive Advisor Relationship Specialty Start Date End Date Minerva Shaver MD [address] [place] [address] PCP - General Internal Medicine 08/19/22 Comprehensive Advisor Relationship Specialty Start Date End Date Minerva Shaver MD [address] [place] [address] PCP - General Internal Medicine 09/25/15 Fred, Maxim S Specialty Component Overhaul Operator Cardiology 03/19/13 Team Status: Inactive Member Role Status Dates Dr. Minerva Shaver MD Primary Care Provider Active Dr. Perlita Flowers MD Attending Provider, Referring Prov ider Active Comprehensive Advisor Relationship Specialty Start Date End Date Minerva Shaver MD [address] [place] [address] PCP - General Internal Medicine 09/25/15 Fred, [place] S Specialty Component Overhaul Operator Cardiology 03/19/13 Comprehensive Advisor Relationship Specialty Start Date End Date Minerva Shaver MD [address] [place] [address] PCP - General Internal Medicine 09/25/15 Fred, [place] S Specialty Component Overhaul Operator Cardiology 03/19/13 Comprehensive Advisor Relationship Specialty Start Date End Date Minerva Shaver MD [address] [place] [address] PCP - General Internal Medicine 09/25/15 Fred, Maxim S Specialty Component Overhaul Operator Cardiology 03/19/13 Comprehensive Advisor Relationship Specialty Start Date End Date Minerva Shaver MD [address] [place] [address] PCP - General Internal Medicine 09/25/15 Fred, Maxim S Specialty Component Overhaul Operator Cardiology 03/19/13 Team Status: Active Member Role Status Dates Dr. Minerva Shaver MD Primary Care Provider Active Dr. Sohan Shelton MD Emergency Provider Active Dr. Stephanie Scales DO Admit Provider, Attending Provide r Active Comprehensive Advisor Relationship Specialty Start Date End Date Minerva Shaver MD [address] [place] [address] PCP - General Internal Medicine 09/25/15 Fred, [place] S Specialty Component Overhaul Operator Cardiology 03/19/13 Team Status: Active Member Role Status Dates Dr. Minerva Shaver MD Primary Care Provider Active Dr. Dena Workman MD Attending Provider Active Team Status: Active Member Role Status Dates Dr. Minerva Shaver MD Primary Care Provider Active Dr. Sohan Shelton MD Emergency Provider Active Dr. Stephanie Scales , Admit Provider, Other Provider Ac tive Dr. Josep Vasquez MD Attending Provider, Other Provid er Active Team Status: Inactive Member Role Status Dates Dr. Minerva Shaver MD Primary Care Provider Active Dr. Sohna Shelton MD Emergency Provider Active Dr. Stephanie Scales , Admit Provider, Other Provider Ac tive Dr. Josep Vasquez MD Attending Provider Active Comprehensive Advisor Relationship Specialty Start Date End Date Minerva Shaver MD [address] [place] [address] PCP - General Internal Medicine 09/25/15 Fred, Maxim S Specialty Component Overhaul Operator Cardiology 03/19/13 Comprehensive Advisor Relationship Specialty Start Date End Date Minerva Shaver MD [address] [place] [address] PCP - General Internal Medicine 09/25/15 Fred, Maxim S Specialty Component Overhaul Operator Cardiology 03/19/13 Comprehensive Advisor Relationship Specialty Start Date End Date Minerva Shaver MD [address] [place] [address] PCP - General Internal Medicine 09/25/15 Fred, [place] S Specialty Component Overhaul Operator Cardiology 03/19/13 Comprehensive Advisor Relationship Specialty Start Date End Date Minerva Shaver MD [address] [place] [address] PCP - General Internal Medicine 09/25/15 Fred, [place] S Specialty Component Overhaul Operator Cardiology 03/19/13 Comprehensive Advisor Relationship Specialty Start Date End Date Minerva Shaver MD [address] [place] [address] PCP - General Internal Medicine 09/25/15 Maxim Ibarra Specialty Component Overhaul Operator Cardiology 03/19/13 Comprehensive Advisor Relationship Specialty Start Date End Date Minerva Shaver MD [address] [place] [address] PCP - General Internal Medicine 09/25/15 Maxim Ibarra Specialty Component Overhaul Operator Cardiology 03/19/13 Team Status: Inactive Member Role Status Dates Dr. Minerva Shaver MD Primary Care Provider Active DIANNA BALLARD , FORMULATOR-C Attending Provider, Referring Provide r Active Comprehensive Advisor Relationship Specialty Start Date End Date Minerva Shaver MD [address] [place] [address] PCP - General Internal Medicine 09/25/15 Maxim Ibarra MD Specialty Component Overhaul Operator Cardiology 03/19/13 Comprehensive Advisor Relationship Specialty Start Date End Date Minerva Shaver MD [address] [place] [address] PCP - General Internal Medicine 09/25/15 Maxim Ibarra MD Specialty Component Overhaul Operator Cardiology 03/19/13 Comprehensive Advisor Relationship Specialty Start Date End Date Minerva Shaver MD [address] [place] [address] PCP - General Internal Medicine 09/25/15 Maxim Ibarra MD Specialty Component Overhaul Operator Cardiology 03/19/13 Comprehensive Advisor Relationship Specialty Start Date End Date Minerva Shaver MD [address] [place] [address] PCP - General Internal Medicine 09/25/15 Maxim Ibarra MD Specialty Component Overhaul Operator Cardiology 03/19/13 Comprehensive Advisor Relationship Specialty Start Date End Date Minerva Shaver MD [address] [place] [address] PCP - General Internal Medicine 09/25/15 Maxim Ibarra MD Specialty Component Overhaul Operator Cardiology 03/19/13 Comprehensive Advisor Relationship Specialty Start Date End Date Minerva Shaver MD [address] [place] [address] PCP - General Internal Medicine 09/25/15 Maxim Ibarra MD Specialty Component Overhaul Operator Cardiology 03/19/13 Comprehensive Advisor Relationship Specialty Start Date End Date Minerva Shaver MD [address] [place] [address] PCP - General Internal Medicine 09/25/15 Maxim Ibarra MD Specialty Component Overhaul Operator Cardiology 03/19/13 Comprehensive Advisor Relationship Specialty Start Date End Date Minerva Shaver MD [address] [place] [address] PCP - General Internal Medicine 09/25/15 Maxim Ibarra MD Specialty Component Overhaul Operator Cardiology 03/19/13 Comprehensive Advisor Relationship Specialty Start Date End Date Minerva Shaver MD [address] [place] [address] PCP - General Internal Medicine 09/25/15 Maxim Ibarra MD Specialty Component Overhaul Operator Cardiology 03/19/13 Comprehensive Advisor Relationship Specialty Start Date End Date Minerva Shaver MD [address] [place] [address] PCP - General Internal Medicine 09/25/15 Maxim Ibarra MD Specialty Component Overhaul Operator Cardiology 03/19/13 Team Status: Inactive Member Role Status Dates Dr. Minerva Shaver MD Primary Care Provider, Referring Provider Active Nagi Freeman FORMULATOR, FORMULATOR-C Attending Provider Active Comprehensive Advisor Relationship Specialty Start Date End Date Minerva Shaver MD [address] [place] [address] PCP - General Internal Medicine 09/25/15 Maxim Ibarra MD Specialty Component Overhaul Operator Cardiology 03/19/13 Team Status: Inactive Member Role Status Dates Dr. Minerva Shaver MD Primary Care Provider Active Susan Mac PA, PA Attending Provider, Referr ing Provider Active Comprehensive Advisor Relationship Specialty Start Date End Date Minerva Shaver MD [address] [place] [address] PCP - General Internal Medicine 09/25/15 Maxim Ibarra MD Specialty Component Overhaul Operator Cardiology 03/19/13 Team Status: Active Member Role Status Dates Dr. Minerva Shaver MD Primary Care Provider Active Dr. Maxim Ibarra MD Attending Provider, Other Provide r Active Team Status: Active Member Role Status Dates Dr. Minerva Shaver MD Primary Care Provider Active Dr. Maxim Ibarra MD Referring Provider, Other Provide r Active Dr. Varun Montes DO Attending Provider Active Comprehensive Advisor Relationship Specialty Start Date End Date Minerva Shaver MD [address] [place] [address] PCP - General Internal Medicine 09/25/15 Maxim Ibarra MD Specialty Component Overhaul Operator Cardiology 03/19/13 Team Status: Inactive Member Role Status Dates Dr. Minerva Shaver MD Primary Care Provider, Referring Provider Active RENEE Rodriguez Attending Provider Active Team Status: Inactive Member Role Status Dates Dr. Minerva Shaver MD Primary Care Provider, Referring Provider Active Mata Dailey MD Attending Provider Active Team Status: Inactive Member Role Status Dates Dr. Minerva Shaver MD Primary Care Provider Active Dr. Mine Shaffer MD Emergency Provider Active Comprehensive Advisor Relationship Specialty Start Date End Date Minerva Shaver MD [address] [place] [address] PCP - General Internal Medicine 09/25/15 Maxim Ibarra MD Specialty Component Overhaul Operator Cardiology 03/19/13 Comprehensive Advisor Relationship Specialty Start Date End Date Minerva Shaver MD [address] [facility] [place] [address] PCP - General Internal Medicine 09/25/15 Maxim Ibarra MD Specialty Component Overhaul Operator Cardiology 03/19/13 Comprehensive Advisor Relationship Specialty Start Date End Date Minerva Shaver MD [address] [facility] [place] [address] PCP - General Internal Medicine 09/25/15 Maxim Ibarra MD Specialty Component Overhaul Operator Cardiology 03/19/13 Comprehensive Advisor Relationship Specialty Start Date End Date Minerva Shaver MD [address] [facility] [place] [address] PCP - General Internal Medicine 09/25/15 Maxim Ibarra MD Specialty Component Overhaul Operator Cardiology 03/19/13 Comprehensive Advisor Relationship Specialty Start Date End Date Minerva Shaver MD [address] [facility] [place] [address] PCP - General Internal Medicine 09/25/15 Maxim Ibarra MD Specialty Component Overhaul Operator Cardiology 03/19/13 Comprehensive Advisor Relationship Specialty Start Date End Date Minerva Shaver MD [address] [facility] [place] [address] PCP - General Internal Medicine 09/25/15 Maxim Ibarra MD Specialty Component Overhaul Operator Cardiology 03/19/13 Comprehensive Advisor Relationship Specialty Start Date End Date Minerva Shaver MD [address] [place] [address] PCP - General Internal Medicine 09/25/15 Maxim Ibarra MD Specialty Component Overhaul Operator Cardiology 03/19/13 Comprehensive Advisor Relationship Specialty Start Date End Date Minerva Shaver MD [address] [place] [address] PCP - General Internal Medicine 09/25/15 Maxim Ibarra MD Specialty Component Overhaul Operator Cardiology 03/19/13 Comprehensive Advisor Relationship Specialty Start Date End Date Minerva Shaver MD [address] [place] [address] PCP - General Internal Medicine 09/25/15 Maxim Ibarra MD Specialty Component Overhaul Operator Cardiology 03/19/13 Comprehensive Advisor Relationship Specialty Start Date End Date Minerva Shaver MD [address] [place] [address] PCP - General Internal Medicine 09/25/15 Maxim Ibarra MD Specialty Component Overhaul Operator Cardiology 03/19/13 Comprehensive Advisor Relationship Specialty Start Date End Date Minerva Shaver MD [address] [facility] [place] [address] PCP - General Internal Medicine 09/25/15 Maxim Ibarra MD Specialty Component Overhaul Operator Cardiology 03/19/13 Comprehensive Advisor Relationship Specialty Start Date End Date Minerva Shaver MD [address] [facility] [place] [address] PCP - General Internal Medicine 09/25/15 Maxim Ibarra MD Specialty Component Overhaul Operator Cardiology 03/19/13 Nikki Vincent RN Sanitation Worker [employer] Internal Medicine 12/25/20 02/28/21 Comprehensive Advisor Relationship Specialty Start Date End Date Minerva Shaver MD [address] [place] [address] PCP - General Internal Medicine 09/25/15 Maxim Ibarra MD Specialty Component Overhaul Operator Cardiology 03/19/13 Comprehensive Advisor Relationship Specialty Start Date End Date Minerva Shaver MD [address] [place] [address] PCP - General Internal Medicine 09/25/15 Maxim Ibarra MD Specialty Component Overhaul Operator Cardiology 03/19/13 Comprehensive Advisor Relationship Specialty Start Date End Date Minerva Shaver MD [address] [place] [address] PCP - General Internal Medicine 09/25/15 Maxim Ibarra MD Specialty Component Overhaul Operator Cardiology 03/19/13 Comprehensive Advisor Relationship Specialty Start Date End Date Minerva Shaver MD [address] [place] [address] PCP - General Internal Medicine 09/25/15 Maxim Ibarra MD Specialty Component Overhaul Operator Cardiology 03/19/13 Comprehensive Advisor Relationship Specialty Start Date End Date Minerva Shaver MD [address] [facility] [place] [place] [address] PCP - General Internal Medicine 09/25/15 Maxim Ibarra MD Specialty Component Overhaul Operator Cardiology 03/19/13 Comprehensive Advisor Relationship Specialty Start Date End Date Minerva Shaver MD [address] [place] [address] PCP - General Internal Medicine 03/08/24 Maxim Ibarra MD [address] [place] [address] PCP - Referring 1 Cardiovascular Disease 04/13/24 Laith Montes MD [address] [place] [address] PCP - Referring 2 Pulmonary Disease 04/13/24 Comprehensive Advisor Relationship Specialty Start Date End Date Minerva Shaver MD [address] [place] [address] PCP - General Internal Medicine 03/08/24 Maxim Ibarra MD [address] [place] [address] PCP - Referring 1 Cardiovascular Disease 04/13/24 Laith Montes MD [address] [place] [address] PCP - Referring 2 Pulmonary Disease 04/13/24 Comprehensive Advisor Relationship Specialty Start Date End Date Minerva Shaver MD [address] [place] [address] PCP - General Internal Medicine 03/08/24 Maxim Ibarra MD [address] [place] [address] PCP - Referring 1 Cardiovascular Disease 04/13/24 Laith Montes MD [address] [place] [address] PCP - Referring 2 Pulmonary Disease 04/13/24 Comprehensive Advisor Relationship Specialty Start Date End Date Minerva Shaver MD [address] [place] [address] PCP - General Internal Medicine 09/25/15 Maxim Ibarra MD Specialty Component Overhaul Operator Cardiology 03/19/13 Davin Rudd PA-C [address] [place] [address] Batch Roller Operator Family Medicine 04/18/24 Dianna Ballard APRN.[employer] [address] [place] [address] Batch Roller Operator Internal Medicine 04/18/24 Fco Vidales PA-C [address] [place] [address] Batch Roller Operator Family Medicine 04/18/24 Comprehensive Advisor Relationship Specialty Start Date End Date Minerva Shaver MD [address] [facility] [place] [address] PCP - General Internal Medicine 09/25/15 Maxim Ibarra MD Specialty Component Overhaul Operator Cardiology 03/19/13 Davin Rudd PA-C [address] [place] [address] Batch Roller Operator Family Medicine 04/18/24 Dianna Ballard APRN.[employer] [address] [place] [address] Batch Roller Operator Internal Medicine 04/18/24 Fco Vidales PA-C [address] [place] [place] [address] Batch Roller Operator Family Medicine 04/18/24 Comprehensive Advisor Relationship Specialty Start Date End Date Minerva Shaver MD [address] [facility] [place] [place] [address] PCP - General Internal Medicine 09/25/15 Maxim Ibarra MD Specialty Component Overhaul Operator Cardiology 03/19/13 Davin Rudd PA-C [address] [place] [address] Batch Roller Operator Family Medicine 04/18/24 Dianna Ballard APRN.[employer] [address] [place] [address] Batch Roller Operator Internal Medicine 04/18/24 Fco Vidales PA-C [address] [place] [address] Batch Roller Operator Family Medicine 04/18/24 Comprehensive Advisor Relationship Specialty Start Date End Date Minerva Shaver MD [address] [place] [address] PCP - General Internal Medicine 09/25/15 Maxim Ibarra MD Specialty Component Overhaul Operator Cardiology 03/19/13 Davin Rudd PA-C [address] [place] [address] Batch Roller Operator Family Medicine 04/18/24 Dianna Ballard APRN.[employer] [address] [place] [address] Batch Roller Operator Internal Medicine 04/18/24 Fco Vidales PA-C [address] [place] [address] Batch Roller Operator Family Medicine 04/18/24 Comprehensive Advisor Relationship Specialty Start Date End Date Minerva Shaver MD [address] [place] [address] PCP - General Internal Medicine 09/25/15 Maxim Ibarra MD Specialty Component Overhaul Operator Cardiology 03/19/13 Davin Rudd PA-C [address] [place] [address] Batch Roller Operator Family Medicine 04/18/24 Dianna Ballard APRN.[employer] [address] [place] [address] Batch Roller Operator Internal Medicine 04/18/24 Fco Vidales PA-C [address] [place] [address] Batch Roller Operator Family Medicine 04/18/24 Comprehensive Advisor Relationship Specialty Start Date End Date Minerva Shaver MD [address] [place] [address] PCP - General Internal Medicine 09/25/15 Maxim Ibarra MD Specialty Component Overhaul Operator Cardiology 03/19/13 Davin Rudd PA-C [address] [place] [id number] Batch Roller Operator Family Medicine 04/18/24 Dianna Ballard APRN.[employer] [address] [place] [address] Batch Roller Operator Internal Medicine 04/18/24 Fco Vidales PA-C [address] [place] [address] Batch Roller Operator Family Medicine 04/18/24 Comprehensive Advisor Relationship Specialty Start Date End Date Minerva Shaver MD [address] [place] [address] PCP - General Internal Medicine 09/25/15 Maxim Ibarra MD Specialty Component Overhaul Operator Cardiology 03/19/13 Davin Rudd PA-C [address] [place] [address] Batch Roller Operator Family Medicine 04/18/24 Dianna Ballard APRN.[employer] [address] [place] [address] Batch Roller Operator Internal Medicine 04/18/24 Fco Vidales PA-C [address] [place] [address] Batch Roller Operator Family Medicine 04/18/24 Comprehensive Advisor Relationship Specialty Start Date End Date Minerva Shaver MD [address] [place] [address] PCP - General Internal Medicine 09/25/15 Maxim Ibarra MD Specialty Component Overhaul Operator Cardiology 03/19/13 Davin Rudd PA-C [address] [place] [address] Batch Roller Operator Family Medicine 04/18/24 Dianna Ballard APRN.[employer] [address] [place] [address] Batch Roller Operator Internal Medicine 04/18/24 Fco Vidales PA-C [address] [place] [address] Batch Roller Operator Family [facility] 04/18/24 Comprehensive Advisor Relationship Specialty Start Date End Date Minerva Shaver MD [address] [place] [address] PCP - General Internal Medicine 09/25/15 Maxim Ibarra MD Specialty Component Overhaul Operator Cardiology 03/19/13 Davin Rudd PA-C [address] [place] [address] [facility] Family Medicine 04/18/24 Dianna Ballard APRN.[employer] [address] [place] [address] Batch Roller Operator Internal Medicine 04/18/24 Fco Vidales PA-C [address] [place] [address] [facility] 04/18/24 Comprehensive Advisor Relationship Specialty Start Date End Date Minerva Shaver MD [address] [place] [address] PCP - General Internal Medicine 09/25/15 Maxim Ibarra MD Specialty Component Overhaul Operator Cardiology 03/19/13 Dianna Ballard APRN.[employer] [address] [place] [address] [facility] Internal Medicine 04/18/24 Team Status: Active Member Role Status Dates Dr. Minerva Shaver MD Primary Care Provider Active Team Status: Inactive Member Role Status Dates Dr. Minerva Shaver MD Primary Care Provider Active Start: April 12, 2024 End: April 12, 2024 Dr. Janes Zamudio DO Attending Provider Active Start: April 12, 2024 End: April 12, 2024 Dr. Janes Zamudio DO Emergency Provider Active Start: April 12, 2024 End: April 12, 2024 Team Status: Inactive Member Role Status Dates Dr. Minerva Shaver MD Primary Care Provider Active Start: April 19, 2024 End: April 19, 2024 Dr. Minerva Shaver MD Referring Provider Active Start: April 19, 2024 End: April 19, 2024 Nagi Freeman FORMULATOR, FORMULATOR-C Attending Provider Active S tart: April 19, 2024 End: April 19, 2024 Team Status: Inactive Member Role Status Dates Dr. Minerva Shaver MD Primary Care Provider Active Start: April 19, 2024 End: April 19, 2024 Nagi Freeman FORMULATOR, FORMULATOR-C Attending Provider Active S tart: April 19, 2024 End: April 19, 2024 Nagi Freeman FORMULATOR, FORMULATOR-C Referring Provider Active S tart: April 19, 2024 End: April 19, 2024 Team Status: Inactive Member Role Status Dates Dr. Minerva Shaver MD Primary Care Provider Active Start: April 28, 2024 End: April 28, 2024 Dr. Minerva Shaver MD Referring Provider Active Start: April 28, 2024 End: April 28, 2024 Nagi Freeman FORMULATOR, FORMULATOR-C Attending Provider Active S tart: April 28, 2024 End: April 28, 2024 Team Status: Inactive Member Role Status Dates Dr. Minerva Shaver MD Primary Care Provider Active Start: May 25, 2024 End: May 26, 2024 Dr. Saul Guzman DO Attending Provider Active Start: May 25, 2024 End: May 26, 2024 Dr. Saul Guzman DO Emergency Provider Active Start: May 25, 2024 End: May 26, 2024 Team Status: Inactive Member Role Status Dates Dr. Minerva Shaver MD Primary Care Provider Active Start: July 27, 2024 End: July 27, 2024 Dr. Minerva Shaver MD Referring Provider Active Start: July 27, 2024 End: July 27, 2024 Nagi Freeman FORMULATOR, FORMULATOR-C Attending Provider Active S tart: July 27, 2024 End: July 27, 2024 Team Status: Active Member Role Status Dates Dr. Minerva Shaver MD Primary Care Provider Active Start: July 29, 2024 Dr. Omid Moreno MD Attending Provider Active Start: July 29, 2024 Dr. Omid Moreno MD Referring Provider Active Start: July 29, 2024 Team Status: Inactive Member Role Status Dates Dr. Minerva Shaver MD Primary Care Provider Active Start: July 31, 2024 End: August 01, 2024 Dr. Saul Guzman DO Emergency Provider Active Start: July 31, 2024 End: August 01, 2024 Team Status: Inactive Member Role Status Dates Dr. Minerva Shaver MD Primary Care Provider Active Start: July 29, 2024 End: July 29, 2024 Dr. Omid Moreno MD Attending Provider Active Start: July 29, 2024 End: July 29, 2024 Dr. Omid Moreno MD Referring Provider Active Start: July 29, 2024 End: July 29, 2024 Comprehensive Advisor Relationship Specialty Start Date End Date Minerva Shaver MD [address] [place], [place] [address] PCP - General Internal Medicine 09/25/15 Maxim Ibarra MD Specialty Component Overhaul Operator Cardiology 03/19/13 Dianna Ballard APRN.CNP [address] [place], [place] [id number] Batch Roller Operator Internal Medicine 04/18/24 Comprehensive Advisor Relationship Specialty Start Date End Date Minerva Shaver MD [address] [place] [address] PCP - General Internal Medicine 09/25/15 Maxim Ibarra MD Specialty Component Overhaul Operator Cardiology 03/19/13 Dianna Ballard APRN.[employer] [address] [place] [address] Batch Roller Operator Internal Medicine 04/18/24 Comprehensive Advisor Relationship Specialty Start Date End Date Minerva Shaver MD [address] [facility] [place] [address] PCP - General Internal Medicine 09/25/15 Maxim Ibarra MD Specialty Component Overhaul Operator Cardiology 03/19/13 Dianna Ballard APRN.[employer] [address] [place] [address] Batch Roller Operator Internal Medicine 04/18/24 Comprehensive Advisor Relationship Specialty Start Date End Date Minerva Shaver MD [address] [place] [address] PCP - General Internal Medicine 09/25/15 Maxim Ibarra MD Specialty Component Overhaul Operator Cardiology 03/19/13 Davin Rudd PA-C [address] [place] [address] Batch Roller Operator Family Medicine 04/18/24 08/01/24 Dianna Ballard APRN.[employer] [address] [place] [address] Batch Roller Operator Internal Medicine 04/18/24 Fco Vidales PA-C [address] [place] [address] Batch Roller Operator Family Medicine 04/18/24 08/01/24 Team Status: Inactive Member Role Status Dates Dr. Minerva Shaver MD Primary Care Provider Active Start: July 31, 2024 End: August 01, 2024 Dr. Saul Guzman DO Attending Provider Active Start: July 31, 2024 End: August 01, 2024 Dr. Saul Guzman DO Emergency Provider Active Start: July 31, 2024 End: August 01, 2024 Team Status: Inactive Member Role Status Dates Dr. Minerva Shaver MD Primary Care Provider Active Start: August 17, 2024 End: August 17, 2024 Dr. Minerva Shaver MD Referring Provider Active Start: August 17, 2024 End: August 17, 2024 RENEE Bojorquez Attending Provider Active Star t: August 17, 2024 End: August 17, 2024 Team Status: Inactive Member Role Status Dates Dr. Minerva Shaver MD Primary Care Provider Active Start: August 17, 2024 End: August 17, 2024 RENEE oBjorquez Attending Provider Active Star t: August 17, 2024 End: August 17, 2024 RENEE Bojorquez Referring Provider Active Star t: August 17, 2024 End: August 17, 2024 Team Status: Inactive Member Role Status Dates Dr. Minerva Shaver MD Primary Care Provider Active Start: September 15, 2024 End: September 15, 2024 RENEE Bojorquez Attending Provider Active Star t: September 15, 2024 End: September 15, 2024 RENEE Bojorquez Referring Provider Active Star t: September 15, 2024 End: September 15, 2024 Team Status: Active Member Role Status Dates Dr. Minerva Shaver MD Primary Care Provider Active Start: September 15, 2024 RENEE Bojorquez Referring Provider Active Star t: September 15, 2024 RENEE Bojorquez Other Provider Active Start: Cande grady 2024 Dr. Nils Haddad MD Attending Provider Active S tart: September 15, 2024 Team Status: Active Member Role Status Dates Dr. Minerva Shaver MD Primary Care Provider Active Start: September 17, 2024 Dr. Omid Moreno MD Attending Provider Active Start: September 17, 2024 Dr. Omid Moreno MD Referring Provider Active Start: September 17, 2024 Team Status: Inactive Member Role Status Dates Dr. Minerva Shaver MD Primary Care Provider Active Start: September 17, 2024 End: September 17, 2024 Dr. Omid Moreno MD Attending Provider Active Start: September 17, 2024 End: September 17, 2024 Dr. Omid Moreno MD Referring Provider Active Start: September 17, 2024 End: September 17, 2024 Team Status: Active Member Role Status Dates Dr. Minerva Shaver MD Primary Care Provider Active Start: September 25, 2024 RENEE Bojorquez Attending Provider Active Star t: September 25, 2024 RENEE Bojorquez Referring Provider Active Star t: September 25, 2024 Team Status: Inactive Member Role Status Dates Dr. Minerva Shaver MD Primary Care Provider Active Start: September 29, 2024 End: September 29, 2024 Dr. Minerva Shaver MD Referring Provider Active Start: September 29, 2024 End: September 29, 2024 Nagi Freeman NP, FORMULATOR-C Attending Provider Active S tart: September 29, 2024 End: September 29, 2024 Team Status: Inactive Member Role Status Dates Dr. Minerva Shaver MD Primary Care Provider Active Start: September 25, 2024 End: September 25, 2024 RENEE Bojorquez Attending Provider Active Star t: September 25, 2024 End: September 25, 2024 RENEE Bojorquez Referring Provider Active Star t: September 25, 2024 End: September 25, 2024 Comprehensive Advisor Relationship Specialty Start Date End Date Minerva Shaver MD [address] [place] [address] PCP - General Internal Medicine 03/08/24 Maxim Ibarra MD [address] [place] [address] PCP - Referring 1 Cardiovascular Disease 04/13/24 Laith Montes MD [address] [place] [address] PCP - Referring 2 Pulmonary Disease 04/13/24 Comprehensive Advisor Relationship Specialty Start Date End Date Minerva Shaver MD [address] [place] [address] PCP - General Internal Medicine 09/25/15 Maxim Ibarra MD Specialty Component Overhaul Operator Cardiology 03/19/13 Dianna Ballard APRN.[employer] [address] [place] [address] Batch Roller Operator Internal Medicine 04/18/24 Maya Velazquez, NINI [address] [place], [place] [id number] Primary Care Concrete Buster Operator 10/11/24 Comprehensive Advisor Relationship Specialty Start Date End Date Minerva Shaver MD [address] [place] [address] PCP - General Internal Medicine 09/25/15 Maxim Ibarra MD Specialty Component Overhaul Operator Cardiology 03/19/13 Dianna Ballard APRN.[employer] [address] [place] [address] Batch Roller Operator Internal Medicine 04/18/24 Maya Velazquez, NINI [address] [place] [address] Primary Care Concrete Buster Operator 10/11/24 Team Status: Inactive Member Role Status Dates Dr. Minerva Shaver MD Primary Care Provider Active Start: September 30, 2024 End: September 30, 2024 Dr. Maxim Ibarra MD Attending Provider Active S tart: September 30, 2024 End: September 30, 2024 Dr. Maxim Ibarra MD Referring Provider Active S tart: September 30, 2024 End: September 30, 2024 Team Status: Active Member Role Status Dates Dr. Minerva Shaver MD Primary Care Provider Active Start: September 30, 2024 Dr. Maxim Ibarra MD Attending Provider Active S tart: September 30, 2024 Dr. Maxim Ibarra MD Referring Provider Active S tart: September 30, 2024 Dr. Maxim Ibarra MD Other Provider Active Start : September 30, 2024 Team Status: Inactive Member Role Status Dates Dr. Minerva Shaver MD Primary Care Provider Active Start: October 14, 2024 End: October 14, 2024 Dr. Minerva Shaver MD Referring Provider Active Start: October 14, 2024 End: October 14, 2024 Cande Rasmussen Attending Provider Active Start: 2024 End: October 14, 2024 Team Status: Inactive Member Role Status Dates Dr. Minerva Shaver MD Primary Care Provider Active Start: October 15, 2024 End: October 15, 2024 Dr. Minerva Shaver MD Referring Provider Active Start: October 15, 2024 End: October 15, 2024 Dr. Dargan Fink MD Attending Provider Active Start: October 15, 2024 End: October 15, 2024 Comprehensive Advisor Relationship Specialty Start Date End Date Minerva Shaver MD [address] [place] [address] PCP - General Internal Medicine 09/25/15 Maxim Ibarra MD Specialty Component Overhaul Operator Cardiology 03/19/13 Dianna Ballard APRN.[employer] [address] [place], [place] [address] Batch Roller Operator Internal Medicine 04/18/24 Maya Velazquez RN [address] [place] [address] Primary Care Concrete Buster Operator 10/11/24 Comprehensive Advisor Relationship Specialty Start Date End Date Minerva Shaver MD [address] [place] [address] PCP - General Internal Medicine 09/25/15 Maxim Ibarra MD Specialty Component Overhaul Operator Cardiology 03/19/13 Dianna Ballard APRN.[facility] [address] [place], [place] [id number] [facility] Internal Medicine 04/18/24 Maya Velazquez RN [address] [place] [address] Primary Care Concrete Buster Operator 10/11/24 Goals (unrecognized section and content) Goals may be documented in a n alternate sectionGoals may be documented in an alternate sectionGoals may be documented in an alternate sectionGoals may be documented in an alternate sectionGoals may be documented in an alternate sectionGoals may be documented in an alternate sectionGoals may be documented in an alternate sectionGoals may be documented in an alternate sectionGoals may be documented in an alternate sectionGoals may be documented in an alternate sectionGoals may be documented in an alternate sectionGoals may be documented in an alternate sectionGoals may be documented in an alternate sectionGoals may be documented in an alternate sectionGoals may be documented in an alternate sectionGoals may be documented in an alternate sectionGoals may be documented in an alternate sectionGoals may be documented in an alternate sectionGoals may be documented in an alternate sectionGoals may be documented in an alternate sectionGoals may be documented in an alternate sectionGoals may be documented in an alternate sectionGoals may be documented in an alternate sectionGoals may be documented in an alternate sectionGoals may be documented in an alternate section INFORMATION SOURCE (unrecogn ized section and content) DATE CREATED AUTHOR 11/08/2022 [facility] DATE CREATED AUTHOR AUTHOR'S ORGANIZ ATION 08/20/2023 [facility] DATE CREATED AUTHOR AUTHOR'S ORGANIZ ATION 10/21/2024 [facility] DATE CREATED AUTHOR AUTHOR'S ORGANIZ ATION 10/23/2024 [facility] DATE CREATED AUTHOR AUTHOR'S ORGANIZ ATION 10/25/[address] [facility] Inactive Administered Medications - up to 3 most recent administrations Administered Medications (un recognized section and content) Medication Order MAR Action Action Date Dose Rate Site lactated ringers iv infusion 30 mL/hr, INTRAVENOUS, CONTINUOUS, Starting on Fri08/18/23 at 1100, Until Fri08/18/23 at 1146, Preprocedure New Bag/Syringe/Bottle 08/18/2023 10:41 AM EDT 30 mL/hr 30 mL/hr Scheduled Active and Recently Administ ered Medications (unrecognized section and content) Medication Order 04/15/2024 04/16/2024 04/17/2024 apixaban (ELIQUIS) tablet 5 mg 5 mg, Oral, EVERY 12 HOURS, First dose on Fri04/13/24 at 0900, Until Discontinued, Due to the rapid onset of action of apixaban, no overlap is needed with other anticoagulants (e.g. enoxaparin, heparin)., Indications: Atrial Fibrillation 804 (Given - Provider: Carito Lara RN)2101 (Given - Provider: Shi Dumont RN) 08 (Given - Provider: Flores Gill RN)2018 (Given - Provider: Kathy Hernandez, NINI) 09 (Given - Provider: Roz Stokes, NINI) Atorvastatin (LIPITOR) tablet 20 mg 20 mg, Oral, DAILY AT BEDTIME, First dose on Fri04/13/24 at 2100, Until Discontinued 2101 (Given - Provider: Shi Dumont RN) 2018 (Given - Provider: Kathy Hernandez, NINI) budesonide-glycopyrrolat e-Formoterol (BREZTRI) 160-9-4.8 MCG/ACT inhaler 2 puff 2 puff, Inhalation, DAILY, First dose (after last modification) on Fri04/15/24 at 0900, Until Discontinued 0808 (Given - Provider: Carito Lara RN) 09 (Given - Provider: Flores Gill, RN) 0917 (Given - Provider: Roz Stokes, RN) dapagliflozin (FARXIGA) tablet 10 mg 10 mg, Oral, DAILY, First dose (after last modification) on Fri04/15/24 at 1530, Until Discontinued, Indications: Heart Failure 1555 (Given - Provider: Carito Lara RN) 09 (Given - Provider: Flores Gill RN) 09 (Given - Provider: Roz Stokes, RN) Dofetilide (TIKOSYN) capsule 125 mcg 125 mcg, Oral, EVERY 12 HOURS NON-STANDARD, First dose (after last modification) on Fri04/13/24 at 2000, Until Discontinued, For new starts, physician must calculate QTc interval here to order drug: QTc equals: 450 ms. Doses should be by at least 10 hours from last administration. Please contact pharmacy/ordering provider for questions about timing of doses. 08 (Given - Provider: Carito Lara RN)2011 (Given - Provider: Shi Dumont RN) 08 (Given - Provider: Flores Gill, NINI)2018 (Given - Provider: Kathy Hernandez RN) 0914 (Given - Provider: Roz Stokes, RN) fexofenadine (ZINA) tablet 60 mg 60 mg, Oral, DAILY, First dose on Fri04/14/24 at 0915, Until Discontinued, Avoid antacid administration one hour before and two hours after dose. Avoid administration with fruit juices. 0805 (Given - Provider: Carito Lara RN) 08 (Given - Provider: Flores Gill RN) 0918 (Given - Provider: Roz Stokes, RN) fluticasone (FLONASE) 50 MCG/ACT nasal spray 2 spray 2 spray, Nasal, DAILY, First dose on Fri04/13/24 at 0900, Until Discontinued, Dose is for each nostril. 0808 (Given - Provider: Carito Lara RN) 899 (Given - Provider: Flores Gill, NINI) 0916 (Given - Provider: Roz Stokes, RN) furOSEmide (LASIX) injection 60 mg (COMPLETED) 60 mg, Intravenous, ONCE, 1 dose, On Fri04/15/24 at 1445, Administer by slow IV push at a rate not exceeding 40mg/min 1555 (Given - Provider: Carito Lara RN) furOSEmide (LASIX) tablet 60 mg 60 mg, Oral, DAILY, First dose (after last modification) on Fri04/16/24 at 0900, Until Discontinued 0854 (Given - Provider: Flores Gill RN) 0914 (Given - Provider: Roz Stokes, RN) hydrocortisone 2.5 % ointment 1 Application 1 Application, Topical, 2 TIMES DAILY, First dose on Fri04/15/24 at 0900, Until Discontinued, Apply to chest 1040 (Given - Provider: Carito Lara RN)1707 (Given - Provider: Carito Lara RN) 0859 (Given - Provider: Flores Gill RN)2022 (Given - Provider: Kathy Hernandez, RN) 1002 (Given - Provider: Roz Stokes RN)1700 (Canceled Entry - Provider: System Discharge - Comment: Automatically canceled at discontinue of medication order) Metoprolol succinate (TOPROL-XL) tablet XL 25 mg (CANCELED) 25 mg, Oral, EVERY 12 HOURS, First dose (after last modification) on Fri04/16/24 at 0900, Until Discontinued, Slow release product. Do not crush. Extended release can be cut in half. Hold for HR < 60 0854 (Given - Provider: Flores Gill RN)2020 (Given - Provider: Kathy Hernandez RN - Comment: Pt HR low 60s) 0632 (Held by provider - Provider: Rica Schulz PA-C - Reason: Other)0828 (Unheld by provider - Provider: Shelly Noyola PA-C)0914 (Hold - Provider: Roz Stokes RN - Reason: Order Parameters not met - Comment: HR 50s) Metoprolol succinate (TOPROL-XL) tablet XL 25 mg 25 mg, Oral, DAILY, First dose (after last modification) on Fri04/17/24 at 0930, Until Discontinued, Slow release product. Do not crush. Extended release can be cut in half. Hold for HR < 60 1001 (Given - Provider: Roz Stokes, NINI) Metoprolol succinate (TOPROL-XL) tablet XL 50 mg (CANCELED) 50 mg, Oral, EVERY 12 HOURS, First dose (after last modification) on Fri04/15/24 at 2100, Until Discontinued, Slow release product. Do not crush. Extended release can be cut in half. Hold for HR < 60 , On hold since Fri04/16/2024 at 0543 until manually unheld 2101 (Given - Provider: Shi Dumont RN) 0543 (Held by provider - Provider: Rica Schulz PA-C - Reason: Other)0725 (Unheld by provider - Provider: Shelly Noyola PA-C) Metoprolol succinate (TOPROL-XL) tablet XL 75 mg (CANCELED) 75 mg, Oral, 2 TIMES DAILY, First dose (after last modification) on Fri04/14/24 at 2100, Until Discontinued, Slow release product. Do not crush. Extended release can be cut in half. Hold for HR < 60 0805 (Given - Provider: Carito Lara RN) Multi-Vitamins tablet 1 tablet 1 tablet, Oral, DAILY, First dose on Fri04/13/24 at 0900, Until Discontinued 08 (Given - Provider: Carito Lara RN) 0854 (Given - Provider: Flores Gill RN) 0914 (Given - Provider: Roz Stokes, NINI) Pantoprazole (PROTONIX) tablet DR 40 mg 40 mg, Oral, DAILY, First dose on Fri04/13/24 at 0900, Until Discontinued, Swallow whole; do not crush or chew., Indications: Continuation of Home Therapy 08 (Given - Provider: Carito Lara RN) 0854 (Given - Provider: Flores Gill RN) 0914 (Given - Provider: Roz Stokes, RN) Spironolactone (ALDACTONE) tablet 25 mg 25 mg, Oral, DAILY, First dose on Fri04/13/24 at 0900, Until Discontinued, Max 400 mg/day. Swallow tablet whole; do not crush, split or chew. Contact pharmacy if alternate route or dose is needed. 0805 (Given - Provider: Carito Lara RN) 0854 (Given - Provider: Flores Gill, NINI) 0914 (Given - Provider: Roz Stokes, RN) PRN Medication Order 04/15/2024 04/16/202404/17/2024 Acetaminophen (TYLENOL) tablet 650 mg 650 mg, Oral, EVERY 6 HOURS NEEDED, Starting on Fri04/12/24 at 2255, Until 04/17/24 at 1737, Mild Pain, Oral temp > 100.4 F, Maximum dose of acetaminophen is 4000 mg from all sources in 24 hours. 2100 (Given - Provider: Shi Dumont, RN) 142 (Given - Provider: Angela Turcios RN) alum/mag hydrox.-simethicone oral suspension 30 mL 30 mL, Oral, EVERY 6 HOURS NEEDED, Starting on 04/12/24 at 2255, Until 04/17/24 at 1737, Indigestion, Per 5 mL is equivalent to: (Alum-Mag Hydroxide 200-225 mg and Simethicone 20 mg) and (Alum-Mag Hydroxide 200-200 mg and Simethicone 20 mg) magnesium oxide (MAG-OX) tablet 800 mg 800 mg, Oral, ADMINISTER DIRECTED, Starting on Fri04/12/24 at 2255, Until 04/17/24 at 1737, See admin instructions, For Magnesium 1.6 - 2.0, give 800 mg of Magnesium oxide 0527 (Given - Provider: Shi Dumont RN) 0632 (Given - Provider: Kathy Hernandez, NINI) Magnesium sulfate 4 g in sterile water 50 ml premix IVPB 4 g, Intravenous, Administer over 4 Hours, ADMINISTER DIRECTED, Starting on Fri04/12/24 at 2255, Until 04/17/24 at 1737, Other, Magnesium Replacement Therapy, If Magnesium less than 1.6, give 4 g Magnesium Sulfate IVPB over 4 hours (may give over 1 hour if arrhythmias present). Melatonin tablet 6 mg 6 mg, Oral, DAILY AT BEDTIME NEEDED, Starting on Fri04/12/24 at 2256, Until 04/17/24 at 1737, Insomnia 2101 (Given - Provider: Shi Dumont RN) 0009 (Given - Provider: Kathy Hernandez, NINI) Nystatin (MYCOSTATIN) oral suspension 500,000 Units 500,000 Units, Swish & Swallow, 4 TIMES DAILY NEEDED, Starting on Fri04/13/24 at 0031, Until 04/17/24 at 1737, Thrush Polyethylene glycol (MIRALAX) packet 17 g 17 g, Oral, DAILY NEEDED, Starting on 04/12/24 at 2255, Until 04/17/24 at 1737, Constipation 1st Line Potassium chloride (K-DUR) tablet ER 20 mEq 20 mEq, Oral, ADMINISTER DIRECTED, Starting on 04/12/24 at 2255, Until 04/17/24 at 1737, See admin instructions, If Cr 2.0 - 2.5 mg/dL For Potassium less than 3.6, give 20 mEq Potassium Chloride orally, recheck in AM. If Cr greater than 2.5 mg/dL contact physician/LIP for Potassium less than 3.6 for replacement orders. If potassium is low please administer magnesium first if indicated Potassium chloride (K-DUR) tablet ER 40-60 mEq 40-60 mEq, Oral, ADMINISTER DIRECTED, Starting on 04/12/24 at 2255, Until 04/17/24 at 1737, See admin instructions, If Cr less than 2.0 mg/dL 1. For Potassium 3.6 - 4.0, give 40 mEq of Potassium Chloride orally, recheck in the AM. 2. For Potassium less than 3.6, give 60 mEq Potassium Chloride orally, recheck in 8 hours. 3. If potassium is low please administer magnesium first if indicated. 0632 (Given - Provider: Kathy Hernandez RN) Propofol (DIPRIVAN) injection (CANCELED) NEEDED, Starting on Meme 04/15/24 at 1403, Until Meme 04/15/24 at 1407, Intra-op/Intra-Proc 1403 (Given - Provider: Landon Garcia MD) Sodium chloride 0.9% IV solution 250 mL Intravenous, at 20 mL/hr, NEEDED, Starting on 04/12/24 at 2249, Until 04/17/24 at 1737, Carrier Fluid - See Admin. Inst, 250mL 0.9NS to be used as carrier fluid for intermittent small volume or piggyback medication administration as needed. Infusion rate of the carrier fluid should be set at 20 mL/hr unless the rate as the intermittent medication is less than 20 mL/hr. For intermittent medications with a rate less than 20 mL/hr set the carrier fluid at that rate of the intermittent or piggy back medication. Scheduled Medication Order 04/20/2024 04/21/2024 04/22/2024 apixaban (ELIQUIS) tablet 5 mg 5 mg, Oral, EVERY 12 HOURS, First dose on Meme 04/22/24 at 1500, Until Discontinued, Due to the rapid onset of action of apixaban, no overlap is needed with other anticoagulants (e.g. enoxaparin, heparin)., Indications: Atrial Fibrillation, Post-op/Post-Proc 1457 (Not Given - Pr ovider: Paulette Brizuela RN - Reason: Other - Comment: took this morning will take at home tonight) methylPREDNISolone (MEDROL) tablet 12 mg(Linked Group 1) 12 mg, Oral, EVERY 4 HOURS, 2 doses, First dose (after last modification) on Meme 04/22/24 at 1500, Last dose on Meme 04/22/24 at 1800, Medrol dose pack: Day 1 , total dose equals 24 mg broken into two doses of 12 mg each at dinner and at bedtime., Post-op/Post-Proc 1500 (Given - Provid er: Paulette Brizuela RN) methylPREDNISolone (MEDROL) tablet 4 mg(Linked Group 1) 4 mg, Oral, EVERY 4 HOURS, 3 doses, First dose (after last modification) on Fri04/23/24 at 0400, Last dose on Fri04/23/24 at 1400, Medrol dose pack: Day 2 (dose at breakfast, lunch, and supper), Post-op/Post-Proc methylPREDNISolone (MEDROL) tablet 4 mg(Linked Group 1) 4 mg, Oral, 4 TIMES DAILY, 4 doses, First dose (after last modification) on 04/24/24 at 0500, Last dose on 04/24/24 at 2100, Medrol dose pack: Day 3 (dose at breakfast, noon, supper, and bedtime), Post-op/Post-Proc methylPREDNISolone (MEDROL) tablet 4 mg(Linked Group 1) 4 mg, Oral, 3 TIMES DAILY, 3 doses, First dose (after last modification) on 04/25/24 at 0900, Last dose on 04/25/24 at 2100, Medrol dose pack: Day 4 (dose at breakfast, lunch, and bedtime), Post-op/Post-Proc methylPREDNISolone (MEDROL) tablet 4 mg(Linked Group 1) 4 mg, Oral, EVERY 12 HOURS, 2 doses, First dose (after last modification) on Fri04/26/24 at 0900, Last dose on Fri04/26/24 at 2100, Medrol dose pack: Day (dose at breakfast and bedtime), Post-op/Post-Proc methylPREDNISolone (MEDROL) tablet 4 mg(Linked Group 1) 4 mg, Oral, DAILY EVERY MORNING, 1 dose, First dose (after last modification) on Fri04/27/24 at 0900, Medrol dose pack: Day (dose at breakfast), Post-op/Post-Proc methylPREDNISolone (MEDROL) tablet 8 mg(Linked Group 1) 8 mg, Oral, DAILY AT BEDTIME, 1 dose, First dose (after last modification) on Fri04/23/24 at 1700, Medrol dose pack: Day (dose at bedtime), Post-op/Post-Proc Pantoprazole (PROTONIX) tablet DR 40 mg 40 mg, Oral, DAILY, First dose on Fri04/22/24 at 1045, Until Discontinued, Swallow whole; do not crush or chew., Indications: Prevention of esophageal injury after catheter ablation, Post-op/Post-Proc 1045 (Canceled Entry - Provider: System Discharge - Comment: Automatically canceled at discontinue of medication order) PRN Medication Order 04/20/2024 04/21/2024 04/22/2024 alum/mag hydrox.-simethicone oral suspension 30 mL 30 mL, Oral, EVERY 6 HOURS NEEDED, Starting on Fri04/22/24 at 1032, Until Fri04/22/24 at 1716, Indigestion, Per 5 mL is equivalent to: (Alum-Mag Hydroxide 200-225 mg and Simethicone 20 mg) and (Alum-Mag Hydroxide 200-200 mg and Simethicone 20 mg), Post-op/Post-Proc Lidocaine (XYLOCAINE) 10 mg/mL injection (CANCELED) NEEDED, Starting on Fri04/22/24 at 0854, Until Fri04/22/24 at 1043, Intra-op/Intra-Proc 0854 (Given - Provid er: Alli Hernandez MD) magnesium oxide (MAG-OX) tablet 800 mg 800 mg, Oral, ADMINISTER DIRECTED, Starting on Meme 24 at 1032, Until Meme 24 at 1716, See admin instructions, For Magnesium 1.6 - 2.0, give 800 mg of Magnesium oxide, Post-op/Post-Proc Magnesium sulfate 4 g in sterile water 50 ml premix IVPB 4 g, Intravenous, Administer over 4 Hours, ADMINISTER DIRECTED, Starting on Meme 24 at 1032, Until Meme 24 at 1716, Other, Magnesium Replacement Therapy, If Magnesium less than 1.6, give 4 g Magnesium Sulfate IVPB over 4 hours (may give over 1 hour if arrhythmias present)., Post-op/Post-Proc Melatonin tablet 3 mg 3 mg, Oral, DAILY AT BEDTIME NEEDED, Starting on Meme 24 at 1032, Until Meme 24 at 1716, Insomnia, Post-op/Post-Proc Ondansetron 4mg/2ml (ZOFRAN) injection 4 mg 4 mg, Intravenous, EVERY 4 HOURS NEEDED, Starting on Meme 24 at 1032, Until Meme 24 at 1716, Nausea / Vomiting, Post-op/Post-Proc oxyCODONE (ROXICODONE) tablet 5 mg(Linked Group 2) 5 mg, Oral, EVERY 4 HOURS NEEDED, Starting on Meme 24 at 1032, Until Meme 24 at 1716, Moderate Pain, Severe Pain, PRN for Moderate Pain. Use for Severe Pain if IV not available for use as initial dose. Higher dose may be administred if lower dose was previously documented as ineffective and did not result in adverse effects (RR<10, decrease in level of consciousness)., Post-op/Post-Proc oxyCODONE HCl (ROXICODONE) tablet 10 mg(Linked Group 2) 10 mg, Oral, EVERY 4 HOURS NEEDED, Starting on Meme 24 at 1032, Until Meme 24 at 1716, Moderate Pain, Severe Pain, PRN for Moderate Pain. Use for Severe Pain if IV not available for use as initial dose. Higher dose may be administred if lower dose was previously documented as ineffective and did not result in adverse effects (RR<10, decrease in level of consciousness), Post-op/Post-Proc Polyethylene glycol (MIRALAX) packet 17 g 17 g, Oral, DAILY NEEDED, Starting on Fri04/22/24 at 1032, Until Fri04/22/24 at 1716, Constipation 1st Line, Post-op/Post-Proc Sodium chloride 0.9% IV solution Intravenous, at 1 mL/hr, CONTINUOUS NEEDED, Starting on Fri04/22/24 at 1032, Until Fri04/22/24 at 1716, See administration instructions, Per pressure bag for all transduced lines., Post-op/Post-Proc Linked Groups Order Group 1: methylPREDNISolone (MEDROL) tablet 12 mgJump to med 12 mg, Oral, EVERY 4 HOURS, 2 doses, First dose (after last modification) on Fri04/22/24 at 1500, Last dose on Fri04/22/24 at 1800, Medrol dose pack: Day 1 , total dose equals 24 mg broken into two doses of 12 mg each at dinner and at bedtime., Post-op/Post-Proc Followed by methylPREDNISolone (MEDROL) tablet 4 mgJump to med 4 mg, Oral, EVERY 4 HOURS, 3 doses, First dose (after last modification) on Fri04/23/24 at 0400, Last dose on Fri04/23/24 at 1400, Medrol dose pack: Day 2 (dose at breakfast, lunch, and supper), Post-op/Post-Proc Followed by methylPREDNISolone (MEDROL) tablet 8 mgJump to med 8 mg, Oral, DAILY AT BEDTIME, 1 dose, First dose (after last modification) on Fri04/23/24 at 1700, Medrol dose pack: Day 2 (dose at bedtime), Post-op/Post-Proc Followed by methylPREDNISolone (MEDROL) tablet 4 mgJump to med 4 mg, Oral, 4 TIMES DAILY, 4 doses, First dose (after last modification) on Fri04/24/24 at 0500, Last dose on Fri04/24/24 at 2100, Medrol dose pack: Day 3 (dose at breakfast, noon, supper, and bedtime), Post-op/Post-Proc Followed by methylPREDNISolone (MEDROL) tablet 4 mgJump to med 4 mg, Oral, 3 TIMES DAILY, 3 doses, First dose (after last modification) on Fri04/25/24 at 0900, Last dose on Fri04/25/24 at 2100, Medrol dose pack: Day (dose at breakfast, lunch, and bedtime), Post-op/Post-Proc Followed by methylPREDNISolone (MEDROL) tablet 4 mgJump to med 4 mg, Oral, EVERY 12 HOURS, 2 doses, First dose (after last modification) on Fri04/26/24 at 0900, Last dose on Fri04/26/24 at 2100, Medrol dose pack: Day (dose at breakfast and bedtime), Post-op/Post-Proc Followed by methylPREDNISolone (MEDROL) tablet 4 mgJump to med 4 mg, Oral, DAILY EVERY MORNING, 1 dose, First dose (after last modification) on Fri04/27/24 at 0900, Medrol dose pack: Day (dose at breakfast), Post-op/Post-Proc Group 2: oxyCODONE (ROXICODONE) tablet 5 mgJump to med 5 mg, Oral, EVERY 4 HOURS NEEDED, Starting on Fri04/22/24 at 1032, Until Fri04/22/24 at 1716, Moderate Pain, Severe Pain, PRN for Moderate Pain. Use for Severe Pain if IV not available for use as initial dose. Higher dose may be administred if lower dose was previously documented as ineffective and did not result in adverse effects (RR<10, decrease in level of consciousness)., Post-op/Post-Proc Or oxyCODONE HCl (ROXICODONE) tablet 10 mgJump to med 10 mg, Oral, EVERY 4 HOURS NEEDED, Starting on Fri04/22/24 at 1032, Until Fri04/22/24 at 1716, Moderate Pain, Severe Pain, PRN for Moderate Pain. Use for Severe Pain if IV not available for use as initial dose. Higher dose may be administred if lower dose was previously documented as ineffective and did not result in adverse effects (RR<10, decrease in level of consciousness), Post-op/Post-Proc Scheduled Medication Order 10/06/2024 10/07/2024 10/08/2024 apixaban (ELIQUIS) tablet 5 mg 5 mg, Oral, EVERY 12 HOURS, First dose on Fri10/01/24 at 2230, Until Discontinued, Due to the rapid onset of action of apixaban, no overlap is needed with other anticoagulants (e.g. enoxaparin, heparin)., Indications: Atrial Fibrillation, On hold since Fri10/04/2024 at 0852 until manually unheld 0900 (Automatically Held - Provider: Anuel Cortes MD)2100 (Automatically Held - Provider: Anuel Cortes MD) 0900 (Automatically Held - Provider: Anuel Cortes MD)2100 (Automatically Held - Provider: Anuel Cortes MD) 0900 (Automatically Held - Provider: Anuel Cortes MD)1539 (Unheld by provider - Provider: System Discharge) Ascorbic acid (VITAMIN C) tablet 1,000 mg 1,000 mg, Oral, DAILY, First dose on 10/02/24 at 0900, Until Discontinued 812 (Given - Provider: Madelin Ochoa RN) 08 (Not Given - Provider: Madelin Ochoa, NINI - Reason: Patient/family refused) 075 (Given - Provider: Dalia Arguelles, NINI) budesonide-glycopyrrolat e-formoterol (BREZTRI) 160-9-4.8 MCG/ACT inhaler 1 puff 1 puff, Inhalation, EVERY 12 HOURS, First dose (after last modification) on 10/03/24 at 0900, Until Discontinued 813 (Given - Provider: Madelin Ochoa RN)2140 (Given - Provider: June Saleem, RN) 814 (Given - Provider: Madelin Ochoa, RN)2056 (Given - Provider: June Saleem, RN) 075 (Given - Provider: Dalia Arguelles, RN) cholecalciferol (VITAMIN D3) tablet 5,000 Units 5,000 Units, Oral, DAILY, First dose on 10/02/24 at 0900, Until Discontinued 812 (Given - Provider: Madelin Ochoa RN) 08 (Not Given - Provider: Madelin Ochoa, NINI - Reason: Patient/family refused) 0752 (Given - Provider: Dalia Arguelles, RN) cyanocobalamin (VITAMIN B12) tablet 100 mcg 100 mcg, Oral, DAILY, First dose on 10/02/24 at 0900, Until Discontinued 813 (Given - Provider: Madelin Ochoa RN) 0811 (Not Given - Provider: Madelin Ochoa RN - Reason: Patient/family refused) 0753 (Given - Provider: Dalia Arguelles, RN) dapagliflozin (FARXIGA) tablet 10 mg 10 mg, Oral, DAILY, First dose on 10/02/24 at 0900, Until Discontinued, Do not administer if NPO. Discontinue 3 days prior to major invasive medical procedures., Indications: Heart Failure 0900 (Automatically Held - Provider: Taylor Mckee MD) 0900 (Automatically Held) 0731 (Unheld by provider - Provider: Jessica Ley MD)0950 (Given - Provider: Dalia Arguelles, RN) ferrous sulfate tablet 324 mg 324 mg, Oral, DAILY, First dose on 10/02/24 at 0900, Until Discontinued, Do not crush. 0813 (Given - Provider: Madelin Ochoa RN) 0811 (Not Given - Provider: Madelin Ochoa RN - Reason: Patient/family refused) 0753 (Given - Provider: Dalia Arguelles, RN) Fexofenadine (ZINA) tablet 180 mg 180 mg, Oral, DAILY, First dose on 10/02/24 at 0900, Until Discontinued 0814 (Given - Provider: Madelin Ochoa RN) 0814 (Given - Provider: Madelin Ochoa RN) 0753 (Given - Provider: Dalia Arguelles, RN) fluticasone (FLONASE) 50 MCG/ACT nasal spray 2 spray 2 spray, Nasal, DAILY, First dose on 10/02/24 at 0900, Until Discontinued, Dose is for each nostril. 0814 (Given - Provider: Madelin Ochoa RN) 0815 (Given - Provider: Madelin Ochoa RN) 0753 (Given - Provider: Dalia Arguelles, RN) furOSEmide (LASIX) tablet 60 mg 60 mg, Oral, DAILY, First dose (after last modification) on Fri10/04/24 at 1430, Until Discontinued 08 (Given - Provider: Madelin Ochoa RN) 0809 (Given - Provider: Madelin Ochoa, NINI) 0752 (Given - Provider: Dalia Arguelles, RN) Gabapentin (NEURONTIN) capsule 100 mg 100 mg, Oral, 3 TIMES DAILY, First dose on Fri10/01/24 at 2130, Until Discontinued 08 (Given - Provider: Madelin Ochoa RN)1336 (Given - Provider: Cande Anna RN)2140 (Given - Provider: June Saleem RN) 08 (Given - Provider: Madelin Ochoa RN)1314 (Not Given - Provider: Madelin Ochoa RN - Reason: Other - Comment: pt at procedure)2056 (Given - Provider: June Saleem RN) 075 (Given - Provider: Dalia Arguelles, RN)1400 (Canceled Entry - Provider: System Discharge - Comment: Automatically canceled at discontinue of medication order) Melatonin tablet 6 mg 6 mg, Oral, DAILY AT BEDTIME, First dose on Fri10/01/24 at 2130, Until Discontinued 2140 (Given - Provider: June Saleem RN) 2056 (Given - Provider: June Saleem RN) Metoprolol succinate (TOPROL-XL) tablet XL 75 mg 75 mg, Oral, EVERY 12 HOURS, First dose (after last modification) on 10/02/24 at 2100, Until Discontinued, Slow release product. Do not crush. Extended release can be cut in half. 08 (Given - Provider: Madelin Ochoa RN)2139 (Given - Provider: June Saleem RN) 808 (Given - Provider: Madelin Ochoa RN)2056 (Given - Provider: June Saleem RN) 075 (Given - Provider: Dalia Arguelles, RN) Multi-Vitamins tablet 1 tablet 1 tablet, Oral, DAILY, First dose on 10/02/24 at 0900, Until Discontinued 08 (Given - Provider: Madelin Ochoa RN) 08 (Not Given - Provider: Madelin Ochoa RN - Reason: Patient/family refused) 075 (Given - Provider: Dalia Arguelles, RN) Pantoprazole (PROTONIX) tablet DR 40 mg 40 mg, Oral, DAILY, First dose on 10/02/24 at 0900, Until Discontinued, Swallow whole; do not crush or chew., Indications: Continuation of Home Therapy 08 (Given - Provider: Madelin Ochoa RN) 08 (Given - Provider: Madelin Ochoa RN) 075 (Given - Provider: Dalia Arguelles, RN) Spironolactone (ALDACTONE) tablet 25 mg 25 mg, Oral, DAILY, First dose on 10/02/24 at 0900, Until Discontinued, Max 400 mg/day. Swallow tablet whole; do not crush, split or chew. Contact pharmacy if alternate route or dose is needed. 0813 (Given - Provider: Madelin Ochoa RN) 0809 (Given - Provider: Madelin Ochoa RN) 0752 (Given - Provider: Dalia Arguelles RN) Continuous Medication Order 10/06/2024 10/07/2024 10/08/2024 Heparin 25,000 units in dextrose 5% 250 mL premix infusion (CANCELED) CONTINUOUS, Starting on Fri10/06/24 at 1300, Until Meme 10/07/24 at 1708, INTERMEDIATE/CARDIAC SLIDING SCALE FOR PATIENTS WEIGHT LESS THAN 65KG: Initiate dose at 12 units/kg/hr. If PTT is less than 47, increase dose by 3 units/kg/hr. If PTT is 47-60, increase dose by 2 units/kg/hr. If PTT is 61-71, increase dose by 1 unit/kg/hr. If PTT is 72-95, no change. If PTT is 96-111, decrease dose by 1 unit/kg/hr. If PTT is 112-126, hold infusion for 60 minutes and decrease dose by 2 units/kg/hr. If PTT greater than 126, hold infusion and check PTT every 2 hours. Once PTT is in goal range or below, restart infusion at 3 units/kg/hr lower than the most recent dose. Note: Round PTT to nearest whole number (e.g. 70.5=71, 70.4=70)., Indications: Atrial Fibrillation 1342 ($$New Bag$$ - Provider: Cande Anna RN)1925 (Rate/Dose Verify - Provider: June Saleem RN)2108 (Rate/Dose Change - Provider: June Saleem RN)2110 (Rate/Dose Verify - Provider: June Saleem, RN) 0342 (Rate/Dose Verify - Provider: June Saleem, NINI)0857 (Rate/Dose Verify - Provider: Madelin Ochoa RN)1800 (Stopped - Provider: June Saleem RN) PRN Medication Order 10/06/2024 10/07/2024 10/08/2024 Acetaminophen (TYLENOL) tablet 975 mg 975 mg, Oral, EVERY 6 HOURS NEEDED, Starting on Fri10/01/24 at 2018, Until Fri10/08/24 at 1539, Mild Pain, Oral temp > 100.4 F, Headaches, Moderate Pain, Alternate with ibuprofen if ordered, Maximum dose of acetaminophen is 4000 mg from all sources in 24 hours or 2000 mg from all sources in patients with cirrhosis in 24 hours. 2140 (Given - Provider: June Saleem, NINI) 1853 (Given - Provider: Madelin Ochoa RN) 0756 (Given - Provider: Dalia Arguelles RN) alum/mag hydrox.-simethicone oral suspension 30 mL 30 mL, Oral, EVERY 6 HOURS NEEDED, Starting on Meme 10/07/24 at 1209, Until Fri10/08/24 at 1539, Indigestion, Per 5 mL is equivalent to: (Alum-Mag Hydroxide 200-225 mg and Simethicone 20 mg) and (Alum-Mag Hydroxide 200-200 mg and Simethicone 20 mg), Post-op/Post-Proc calcium carbonate antacid tablet 1,296 mg 1,296 mg (2 tablet), Oral, 4 TIMES DAILY NEEDED, Starting on Fri10/01/24 at 2018, Until Fri10/08/24 at 1539, Indigestion 2153 (Given - Provider: June Saleem RN) ceFAZolin (ANCEF) 1 g in Sodium chloride 0.9 % 1,000 mL (total volume) irrigation (CANCELED) NEEDED, Starting on Meme 10/07/24 at 1243, Until Meme 10/07/24 at 1325, Intra-op/Intra-Proc 1243 (Given - Provider: Landon Adhikari MD) guaiFENesin (ROBITUSSIN) oral solution 400 mg 400 mg, Oral, EVERY 6 HOURS NEEDED, Starting on Fri10/01/24 at 2015, Until Fri10/08/24 at 1539, Cough, Congestion Lidocaine (XYLOCAINE) 10 mg/mL injection (CANCELED) NEEDED, Starting on Meme 10/07/24 at 1202, Until Meme 10/07/24 at 1325, Intra-op/Intra-Proc 1202 (Given - Provider: Landon Adhikari MD)1214 (Given - Provider: Landon Adhikari MD) magnesium oxide (MAG-OX) tablet 800 mg 800 mg, Oral, ADMINISTER DIRECTED, Starting on Fri10/07/24 at 1209, Until Fri10/08/24 at 1539, See admin instructions, For Magnesium 1.6 - 2.0, give 800 mg of Magnesium oxide, Post-op/Post-Proc Magnesium sulfate 4 g in sterile water 50 ml premix IVPB 4 g, Intravenous, Administer over 4 Hours, ADMINISTER DIRECTED, Starting on Fri10/05/24 at 0748, Until Fri10/08/24 at 1539, Other, Magnesium Replacement Therapy, If Magnesium less than 1.6, give 4 g Magnesium Sulfate IVPB over 4 hours (may give over 1 hour if arrhythmias present). Melatonin tablet 6 mg 6 mg, Oral, DAILY AT BEDTIME NEEDED, Starting on Fri10/01/24 at 2015, Until Fri10/08/24 at 1539, Insomnia metoprolol (LOPRESSOR) injection 5 mg 5 mg, Intravenous, EVERY 6 HOURS NEEDED, Starting on Fri10/01/24 at 2340, Until Fri10/08/24 at 1539, Sustained HR above 130 1036 (Given - Provider: Madelin Ochoa, NINI)1812 (Given - Provider: Cande Anna, NINI) Ondansetron 4mg/2ml (ZOFRAN) injection 4 mg 4 mg, Intravenous, EVERY 4 HOURS NEEDED, Starting on Fri10/07/24 at 1209, Until Fri10/08/24 at 1208, Nausea / Vomiting, Post-op/Post-Proc oxyCODONE (ROXICODONE) tablet 5 mg(Linked Group 1) 5 mg, Oral, EVERY 4 HOURS NEEDED, Starting on Fri10/07/24 at 1209, Until Fri10/08/24 at 1539, Moderate Pain, Severe Pain, PRN for Moderate Pain. Use for Severe Pain if IV not available for use as initial dose. Higher dose may be administred if lower dose was previously documented as ineffective and did not result in adverse effects (RR<10, decrease in level of consciousness)., Post-op/Post-Proc oxyCODONE HCl (ROXICODONE) tablet 10 mg(Linked Group 1) 10 mg, Oral, EVERY 4 HOURS NEEDED, Starting on Fri10/07/24 at 1209, Until Fri10/08/24 at 1539, Moderate Pain, Severe Pain, PRN for Moderate Pain. Use for Severe Pain if IV not available for use as initial dose. Higher dose may be administred if lower dose was previously documented as ineffective and did not result in adverse effects (RR<10, decrease in level of consciousness), Post-op/Post-Proc Polyethylene glycol (MIRALAX) packet 17 g 17 g, Oral, DAILY NEEDED, Starting on Fri10/01/24 at 2018, Until Fri10/08/24 at 153, Constipation 2nd Line Polyvinyl Alcohol-Povidone PF (REFRESH) ophthalmic solution 1 drop 1 drop, Both Eyes, NEEDED, Starting on Fri10/07/24 at 1639, Until Fri10/08/24 at 153, Dry Eyes, Patient may self-administer. Potassium chloride (K-DUR) tablet ER 20-40 mEq 20-40 mEq, Oral, ADMINISTER DIRECTED, Starting on Fri10/05/24 at 0748, Until Fri10/08/24 at 153, See admin instructions, If SCr 2.0 - 2.5 mg/dL 1. For Potassium 3.6-4.0, give 20 mEq potassium chloride. 2. If Potassium less than 3.6, give 40 mEq potassium chloride, recheck in AM. If SCr greater than 2.5 and potassium less than 4.0, Contact MD/LIP for replacement order. Potassium chloride (K-DUR) tablet ER 40-60 mEq 40-60 mEq, Oral, ADMINISTER DIRECTED, Starting on Fri10/05/24 at 0748, Until Fri10/08/24 at 1539, See admin instructions, If SCr less than 2.0 mg/dL 1. For Potassium 3.6 - 4.0, give 40 mEq of Potassium Chloride orally, recheck in the AM. 2. For Potassium less than 3.6, give 60 mEq Potassium Chloride orally, recheck in 8 hours. If potassium is low please administer magnesium first if indicated. Senna (SENOKOT) tablet 8.6 mg 8.6 mg, Oral, DAILY NEEDED, Starting on Fri10/01/24 at 2017, Until Fri10/08/24 at 1539, Constipation 1st Line Sodium chloride 0.9% IV solution 250 mL Intravenous, at 20 mL/hr, NEEDED, Starting on Fri10/01/24 at 2015, Until Fri10/08/24 at 1539, Carrier Fluid - See Admin. Inst, 250mL 0.9NS to be used as carrier fluid for intermittent small volume or piggyback medication administration as needed. Infusion rate of the carrier fluid should be set at 20 mL/hr unless the rate as the intermittent medication is less than 20 mL/hr. For intermittent medications with a rate less than 20 mL/hr set the carrier fluid at that rate of the intermittent or piggy back medication. Sodium chloride 0.9% IV solution Intravenous, at 1 mL/hr, CONTINUOUS NEEDED, Starting on Meme 10/07/24 at 1212, Until Fri10/08/24 at 1539, See administration instructions, Per pressure bag for all transduced lines., Post-op/Post-Proc Vancomycin (VANCOCIN) 750 mg in Sodium chloride 0.9%, with overfill 282.5 mL (total volume) IVPB (COMPLETED) 750 mg (rounded from 810 mg = 15 mg/kg 54 kg Adjusted weight), Intravenous, Administer over 1 Hours, CHEMICAL ANALYST TO PROCEDURE, 1 dose, Starting on Meme 10/07/24 at 0000, Until Fri10/07/24 at 1128, Other, Surgical Prophylaxis, Infusion must complete prior to surgical incision. Initiate antibiotic administration 60-120 minutes prior to surgical incision (depending on Administer Over Time) Extravasation Risk, Pre-op/Pre-Proc 1028 ($$New Bag$$ - Provider: Madelin Ochoa RN) Linked Groups Order Group 1: oxyCODONE (ROXICODONE) tablet 5 mgJump to med 5 mg, Oral, EVERY 4 HOURS NEEDED, Starting on Meme 10/07/24 at 1209, Until Fri10/08/24 at 1539, Moderate Pain, Severe Pain, PRN for Moderate Pain. Use for Severe Pain if IV not available for use as initial dose. Higher dose may be administred if lower dose was previously documented as ineffective and did not result in adverse effects (RR<10, decrease in level of consciousness)., Post-op/Post-Proc Or oxyCODONE HCl (ROXICODONE) tablet 10 mgJump to med 10 mg, Oral, EVERY 4 HOURS NEEDED, Starting on Meme 10/07/24 at 1209, Until Fri10/08/24 at 1539, Moderate Pain, Severe Pain, PRN for Moderate Pain. Use for Severe Pain if IV not available for use as initial dose. Higher dose may be administred if lower dose was previously documented as ineffective and did not result in adverse effects (RR<10, decrease in level of consciousness), Post-op/Post-Proc FOR RECORDS PERTAINING TO PATIENTS WHO ARE [...] BE BASED ON THE PRIMARY CLINICAL RECORDS. [employer] provides no warranty or guarantee of the accuracy or completeness of information in this document.
[2024-10-25] MEDS: Lactated Ringers 1,000 ML 15 ML IV (06:46)
--- NOTE | 2024-10-25 06:52 | PRE.ANES_ITS ---
ASA Classification* ASA Classification ASA Classification: 3 Assessment & Plan Anesthesia* Anesthesia Assessment Anesthesia Assessment: Discussed sedation and/or anesthesia options, risks, benefits, and alternatives with patient/parents/legal guardian/POA. Questions invited. The patient/parents/legal guardian/POA seems to understand and agrees to proceed with anesthesia plan. Reviewed the physical assessment, medical history, allergy history and patient home medications list prior to surgery/procedure/anesthetic and documented any changes. Performed airway and anesthesia risk assessments. Anesthesia Type Anesthesia Type: MAC History Source History Obtained from:: Patient and Chart Anesthesia Focused Assessment* Temperature: 97.5 F Pulse Rate: 89 Blood Pressure: 127/82 Respiratory Rate: 14 Pulse Ox: 97 Oxygen Delivery Method: Room Air Airway Assessment Mouth opens: >3 cm Mallampati Score: I Teeth Condition: Dentures (Patient has full top and bottom dentures. Top will stay in. Bottom will come out.) Neck Range of motion (ROM): Full ROM (Slight decrease in extension) Labs Anesthesia Preop lab: CBC WBC 10.5 K/mm3 (4.4-11.0) 07/31/24 22:34 07/31/24 RBC 4.61 M/mm3 (4.2-5.4) 07/31/24 22:34 07/31/24 Hgb 14.7 g/dL (12.0-15.0) 07/31/24 22:34 07/31/24 Hct 42.9 % (37-47) 07/31/24 22:34 07/31/24 Plt Count 320 K/mm3 (150-450) 07/31/24 22:34 07/31/24 CHEMISTRY Potassium 4.2 mmol/L (3.3-5.1) 09/29/24 11:56 09/29/24 Sodium 140 mmol/L (133-145) 09/29/24 11:56 09/29/24 Magnesium 2.1 mg/dL (1.5-2.2) 07/31/24 22:34 07/31/24 Phosphorus 4.1 mg/dL (2.7-4.5) 09/17/24 16:09 09/17/24 BUN 34 mg/dL (4-19) H 09/29/24 11:56 09/29/24 Creatinine 0.96 mg/dL (0.70-1.20) 09/29/24 11:56 09/29/24 Glucose 100 mg/dL (70-99) H 09/29/24 11:56 09/29/24 POC Glucose 150 mg/dL (70-110) H 11/01/18 02:58 11/01/18 TSH 4.480 uIU/mL (0.300-4.200) H 07/31/24 22:34 COAG PT 17.8 SECONDS (11.7-14.9) H 08/08/22 16:20 03 INR 2.0 06/08/19 11:19 06/08/19 Pre-Assessment Diagnosis/Proposed Procedure Planned Operative Procedure(s): Carpal tunnel release. Left wrist. 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 When Was Last Pacemaker Check QUESTION #4 FULL TEXT: You/Your Family Experience fever (hyperthermia) with Anesthesia Last Oral Intake Last Oral intake: Last Oral Intake NPO since 00:00 10/25/24 06:28 Meds taken in AM with sips of Yes 10/25/24 06:28 water? Meds patient instructed to take am of surgery Any additional information?: Yes NPO since: 02:00 Meds taken in AM with sips of water?: Yes Meds patient instructed to take am of surgery: Gabapentin at 2 AM. 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 Has anyone observed you stop No 10/22/24 10:36 breathing during sleep? STOP Results Negative 10/22/24 10:36 QUESTION #5 FULL TEXT : Do you snore loudly (louder than talking or can be heard through closed doors)? 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 Specify any problems Hx of Preganancy in last 3 No 10/22/24 10:36 Months Nurse Filling Out Transfusion JZOLLINGE 10/22/24 10:36 & Questions: Date: 10/22/24 10/22/24 10:36 Time: 10:38 10/22/24 10:36 Patient unable to answer at this time (ie. 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: /Reproductive Hx- sludge filtration operator Hx Now No 10/22/24 10:36 Gestational Age (in weeks): EDC: Hx Hx Para Hx Section SAB No 10/22/24 10:36 Active Medications Active Medications: Current Medications Generic Name Dose Route Start Last Admin Trade Name Freq PRN Reason Stop Dose Admin Cefazolin Sodium 2 gm/ Sodium 110 mls @ 150 mls/hr 10/25/24 07:30 Chloride IV 10/25/24 08:13 INTRAOP ONE Lactated Ringer's 1,000 mls @ 15 mls/hr 10/25/24 06:15 10/25/24 06:46 IV 15 mls/hr .Q48H GARRY Administration PFSH Medical History Wears hearing aid Wears dentures Stroke/cerebrovascular accident Former smoker Complete AV block Presence of cardiac pacemaker Osteoarthritis of right hip Right hip pain Hamstring muscle strain Left hip pain Acute stroke due to ischemia Tubular adenoma of colon URI (upper respiratory infection) Chronic neck and back pain Difficulty balancing when standing Abnormal bruising Diarrhea Chest pain Heart disease Shoulder pain SOB (shortness of breath) Cancer History of DVT (deep vein thrombosis) Arthritis Panlobular emphysema Atrial fibrillation Hypertension Rotator cuff tear Tendonitis of shoulder, right Carpal tunnel syndrome Calculus of kidney Moses's esophagus Paroxysmal atrial fibrillation 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 100 mcg-umeclid 1 ea inhalation QDAY 08/11/23 Unknown History 62.5 mcg-vilant 25 mcg inhalat.powder (Trelegy Ellipta) fluticasone propionate 50 2 spray intranasal QDAY PRN 08/11/23 Unknown History mcg/actuation nasal allergy symptoms spray,suspension melatonin 5 mg tablet 10 mg PO HS PRN insomnia 06/04 Unknown History empagliflozin 10 mg tablet 10 mg PO DAILY #90 tabs 10/22/24 Rx (Jardiance) omeprazole 40 mg capsule,delayed 40 mg PO QDAY 4 Unknown History release spironolactone 25 mg tablet 25 mg PO DAILY #30 tabs Unknown Rx calcium 333 mg-magnesium 133 mg-D3 1 tab PO DAILY 02/02 Unknown History 1.67 mcg-zinc 5 mg tablet sucralfate 100 mg/mL oral 10 ml PO ACHS PRN stoma 04/11 01/02 Unknown History suspension furosemide 20 mg tablet 60 mg PO QDAY 07/27/24 Unkno wn History apixaban 5 mg tablet 5 mg PO BID #180 tabs 10/22/24 Rx metoprolol succinate 25 mg 50 mg PO BID 09/29/2409/30 History tablet,extended release 24 hr gabapentin 100 mg capsule 100 mg PO TID 10/22/2410/25 02:00 History nystatin 100,000 unit/mL oral 1 ml PO .qid PRN thrush 10/22/24 Unknown History suspension Allergy/AdvReac Type Severity Reaction Status Date / Time etodolac Allergy Intermediate Other Verified 10/25/24 06:26 diltiazem HCl (From Cardizem) Allergy Swelling Verified 10/25/24 06:26 of face and neck naproxen Allergy Swelling Verified 10/25/24 06:26 (whole body) prednisone Allergy Other Verified 10/25/24 06:26 amiodarone AdvReac Severe Severe Verified 10/25/24 06:26 dyspnea after taking PO Amiodarone adhesive AdvReac Rash Verified 10/25/24 06:26 albuterol AdvReac Other Verified 10/25/24 06:26 codeine AdvReac Vomiting Verified 10/25/24 06:26 hydrocodone bitartrate (From AdvReac Vomiting Verified 06/16/25 06:26 Vicodin) morphine AdvReac Vomiting Verified 10/25/24 06:26 Family History Sister Afib Father CAD (coronary artery disease) Brother CVA (cerebral vascular accident) Mother No problems noted. Sister No problems noted. Brother Wilsons disease Brother Wilsons disease Surgical History Hx of atrioventricular node ablation Hx of fusion of cervical spine History of radiofrequency ablation procedure for cardiac arrhythmia (07/27/15) History of left heart catheterization (03/15/13) History of cardioversion (04/15/24) Hx of cholecystectomy H/O neck surgery ovarian surgery H/O hernia repair Social History Smoking Status: Former smoker alcohol intake: never substance use type: does not use caffeine: Yes Type: coffee Number of servings: 1 what type of physical activity do you participate in: walking frequency: daily seatbelt use: always do you feel safe at home: Yes Review of Systems (Anesthesia) ROS Narrative System reviewed and no additional complaints, except as documented.
--- NOTE | 2024-10-25 07:11 | PCM.HP.BLA ---
History and Physical MR#: [id number] Acct: [id number] Name: SHERRELL DELGADO Rep #: [id number] : 1945 Provider: Dr. Dragan Fink MD Age/Sex: 79/F Location: [facility] [place].[facility] Status: Signed Intake Vital Signs 08/17/2510:00 09/30/2511:27 10/15/2509:29 Height 5 ft 1 in 5 ft 5 ft Weight: 135 lb BMI 26.4 Intake Visit Reasons: LUMBAR SPINE Chief Complaint: Lumbar spine MRI review and nerve test Accompanied by: Self Is patient in pain?: No Allergies etodolac Allergy (Intermediate, Verified 10/15/24 10:32) Otherdiltiazem HCl (From Cardizem) Allergy (Verified 10/15/24 10:32) Swelling of face and necknaproxen Allergy (Verified 10/15/24 10:32) Swelling (whole body)prednisone Allergy (Verified 10/15/24 10:32) Otheramiodarone Adverse Reaction (Severe, Verified 10/15/24 10:32) Severe dyspnea after taking PO Amiodaroneadhesive Adverse Reaction (Verified 10/15/24 10:32) Rashalbuterol Adverse Reaction (Verified 10/15/24 10:32) Othercodeine Adverse Reaction (Verified 10/15/24 10:32) Vomitinghydrocodone bitartrate (From Vicodin) Adverse Reaction (Verified 10/15/24 10:32) Vomitingmorphine Adverse Reaction (Verified 10/15/24 10:32) Vomiting Medications ?Medication ?Instructions ?Recorded ?Confirmed ?Type multivitamin with folic acid 400 1 tab PO DAILY supplement 03/15/13 10/15/24 History mcg tablet cyclobenzaprine 10 mg tablet 10 mg PO HS PRN muscle spasm 07/25/22 10/15/24 History fluticasone fur. 100 mcg-umeclid 1 ea inhalation QDAY 08/11/23 10/15/24 History 62.5 mcg-vilant 25 mcg inhalat.powder (Trelegy Ellipta) fluticasone propionate 50 2 spray intranasal QDAY PRN 08/11/23 10/15/24 History mcg/actuation nasal allergy symptoms spray,suspension melatonin 5 mg tablet 10 mg PO HS PRN insomnia 08/11/23 10/15/24 History empagliflozin 10 mg tablet 10 mg PO DAILY #90 tabs 12/03/23 10/15/24 Rx (Jardiance) omeprazole 40 mg capsule,delayed 40 mg PO QDAY 12/22/23 10/15/24 History release spironolactone 25 mg tablet 25 mg PO DAILY #30 tabs 03/24/24 10/15/24 Rx calcium 333 mg-magnesium 133 mg-D3 1 tab PO DAILY 04/19/24 10/15/24 History 1.67 mcg-zinc 5 mg tablet dofetilide 125 mcg capsule 125 mcg PO BID 04/19/24 10/15/24 History sucralfate 100 mg/mL oral 10 ml PO ACHS PRN stoma 04/28/24 10/15/24 History suspension furosemide 20 mg tablet 40 mg PO QDAY 07/27/24 10/15/24 History apixaban 5 mg tablet 5 mg PO BID #180 tabs 09/24/24 10/15/24 Rx metoprolol succinate 25 mg 50 mg PO BID 09/29/24 10/15/24 History tablet,extended release 24 hr Have you fallen in the past year?: No PFSH Medical History Complete AV block Presence of cardiac pacemaker Osteoarthritis of right hip Right hip pain Hamstring muscle strain Left hip pain Acute stroke due to ischemia Tubular adenoma of colon URI (upper respiratory infection) Chronic neck and back pain Difficulty balancing when standing Abnormal bruising Diarrhea Chest pain Heart disease Shoulder pain SOB (shortness of breath) Cancer History of DVT (deep vein thrombosis) Arthritis Panlobular emphysema Atrial fibrillation Hypertension Rotator cuff tear Tendonitis of shoulder, right Carpal tunnel syndrome Calculus of kidney Moses's esophagus Paroxysmal atrial fibrillation 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 Cardiomyopathy in other diseases classified elsewhere Nonrheumatic aortic valve stenosis Non-rheumatic tricuspid valve insufficiency Scoliosis of cervical spine GERD (gastroesophageal reflux disease) Surgical History Hx of atrioventricular node ablation Hx of fusion of cervical spine History of radiofrequency ablation procedure for cardiac arrhythmia (07/27/15) History of left heart catheterization (03/15/13) History of cardioversion (04/15/24) Hx of cholecystectomy H/O neck surgery ovarian surgery H/O hernia repair Family History Sister AfibFather CAD (coronary artery disease)Brother CVA (cerebral vascular accident)Mother No problems noted. Sister No problems noted. Brother Wilsons diseaseBrother Wilsons disease Social History Smoking Status: Former smoker alcohol intake: never substance use type: does not use caffeine: Yes Type: coffee Number of servings: 1 what type of physical activity do you participate in: walking frequency: daily seatbelt use: always do you feel safe at home: Yes HPI LUMBAR SPINE Details: This documentation accurately reflects the service provided and the decisions made by me, Dr. Dragan Fink MD 10/15/24 1029. Part of today?s visit was documented by Malini Mukherjee MA and Ada Jaeger PA-C, acting as scribe. SHERRELL DELGADO is a 79 year old F here today for lumbar spine MRI review and nerve testing. Patient would like to go over the MRI results and the nerve testing results to see what the next step is. She had a recent injection in the right hip by Dr. Moreno. Says that this injection did help some. Patient denies any physical therapy. Says that a week ago she had a pacemaker put in at [facility]. Last carpal tunnel surgery on her right hand was over 10 years ago. HPI from 08/17/24: SHERRELL DELGADO is a 79 year old F here today for lumbar spine pain. This has been going on for a couple months. Patient went to Dr. Moreno about a month ago for an injection. The injection in the back didn't work. Patient says she had [address] Moreno on the same day, denies any other injections. Her lower back is worse at night. The pain in her lower back is a sharp pain. Sometimes she gets weak when she walk. Sometimes the pain goes down into the right hip and the right groin. Patient had an ablation in 2023. Working and sitting too much makes the pain worse. At night she has to sleep with the right leg propped up high. Patient was scheduled for last for PT, but she didn't go due to having increased issues with her positional vertigo. She stated that she has to reschedule it. Right sided groin pain. Fusion of neck done 30 years ago. Says that she gets muscle cramps in her sternocleidomastoid muscle. Has positional vertigo so says that she has had decreased balance due to this. Has had some trips, no falls. Says that she has left sided carpal tunnel which has caused some numbness and tingling. She is right hand dominant and denies any other dexterity issues of her right hand. Says that she feels like the neck is swollen. Takes tylenol over the counter and will use Voltaren gel over her lower back with benefit. Says that she has a history of kidney disease and so was discouraged from using the topical Voltaren or other oral NSAIDs by her family doctor. No diabetes, hx of COPD, has O2 at home and only used once in the last 6 months, takes Eliquis for A Fib. Sees cardiology. 30 years ago had a discectomy at L4-5 which she said resolved her pain. Says that she also has left carpal tunnel that has been worsening. She has had right carpal tunnel release in the past. Patient wears a lift in her right shoe. Ortho Exam General General: Yes no acute distress Neurologic: Yes alert and Yes oriented x3 Spine SPINE TESTING CERVICAL THORACIC LUMBAR Musculoskeletal Strength 0=absent - 5=normal Details: Neurological exam of the upper and lower extremities shows 5x5 power. Normal sensations across all dermatomes. No hyperreflexia. There is mild right sided paraspinal tenderness of the lumbar, and midline tenderness of the neck. Left Phalen's, Tinel's, and median nerve compression test positive. Physical examination of the left hand showed thenar atrophy. Physical examination of the neck shows a well healed incision and physical examination of the back shows a well-healed midline incision. Sonali's negative. Romberg's negative. Internal rotation of the right hip increased pain. Figure 4 and Gaenslen's both increased pain on the right side. Coding Level of Care Code Off vis,est,level 4 Diagnoses Lumbar radiculopathy M54.16 Degeneration of intervertebral disc of lumbar region with discogenic back pain and lower extremity pain M51.362 Disc-related pain type: discogenic back pain and lower extremity pain Neck pain with history of cervical spinal surgery M54.2; Z98.890 Carpal tunnel syndrome of left wrist G56.02 Time Spent (min) 35 Assessment and Plan Assessment and Plan (1) Lumbar radiculopathy: Status: Acute (2) Degenerative disc disease, lumbar: Status: Acute Qualifiers: Disc-related pain type: discogenic back pain and lower extremity pain Qualified Code(s): M51.362 - Other intervertebral disc degeneration, lumbar region with discogenic back pain and lower extremity pain (3) Neck pain with history of cervical spinal surgery: Status: Acute (4) Carpal tunnel syndrome of left wrist: Status: Acute Plan Again reviewed prior x-rays show a levoscoliosis, multilevel disc height loss worse at L4-5 with vacuum phenomenon on extension view. Cervical x-rays show a prior C3-5 fusion with screw breakage at C5, there is also a anterolisthesis of C5 on C6 and C6 on C7 with instability on dynamic views. Reviewed right hip x-rays from July 29, 2024 which showed arthrosis of the right hip. Reviewed EMG of the left upper extremity from 09/15/24 which showed a moderate left carpal tunnel syndrome. Reviewed lumbar MRI from 09/25/24 which showed a L4-5 moderate stenosis. Explained imaging findings in detail. Due to the EMG findings and physical exam findings of a positive Tinel's, Phalen's, and median nerve compression recommended a left sided carpal tunnel release. Explained the procedure in detail. Explained risks and benefits of the surgery. The risks include but are not limited to infection, bleeding, hematoma formation, need for further surgery, incomplete relief, persistent weakness, persistent numbness, persistent wasting, tourniquet positive, compartment syndrome, nerve injury. Patient understands and agrees to proceed with surgery.
[2024-10-25] MEDS: Ropivacaine 0.5% 30 ML Vial (07:24)
[2024-10-25] MEDS: Lidocaine 1% (20 ml mdv) 20 ML Vial (07:24)
--- NOTE | 2024-10-25 08:09 | PCM.POST.ANE ---
Anesthesia: Postop Eval I Current Vital Signs Temperature: 97.3 F Pulse Rate: 90 Blood Pressure: 107/73 Respiratory Rate: 16 Pulse Ox: 92 Oxygen Delivery Method: Room Air Assessment Airway patent: Yes Spontaneous unlabored respirations: Yes Mental status: Awake nausea: No Vomiting: No Anesthesia Complication: No Fluid Hydration Crystalloid volume administer (ml): 300 Total IV fluid infused: 300 Progress Note Anesthesia document: Postop Eval 1 completed: Yes
--- NOTE | 2024-10-25 08:19 | PCM.OPRPT ---
Procedures Musculoskeletal [id number]-29xxx: Other Procedure See Report Operative Report (Standard) Operative Information Date of Procedure: 10/25/24 Pre-Operative Diagnosis: Left Carpal tunnel syndrome Post-Operative Diagnosis: Same Surgery/Procedure Performed: Left carpal tunnel release rail car loader: Yes Structural Designer: Ada Jaeger Tasks completed by engineer first assistant: Closing and Retracting Type of Anesthesia: Local MAC RN Documented Start/Stop Times: Operation Date: 10/25/24 07:30 Case Time Into Pre-Op 10/25/24 06:11 Out of Pre-Op 10/25/24 07:23 Anesthesia Start 10/25/24 07:27 Into Room 10/25/24 07:27 Procedure Start 10/25/24 07:46 Procedure End 10/25/24 08:02 Anesthesia End 10/25/24 08:04 Out of Room 10/25/24 08:04 Into Recovery 10/25/24 08:05 Procedure Start Time: 07:46 Procedure Stop Time: 08:02 Select all DRAINS/GRAFTS/IMPLANTS that apply: None Estimated Blood Loss: 5 cc Specimen collected: No Description of surgery: ATTENDING SURGEON: Dragan Fink MD TRAFFIC INVESTIGATOR: none PREOPERATIVE DIAGNOSIS: Left carpal tunnel syndrome. POSTOPERATIVE DIAGNOSIS: Left carpal tunnel syndrome. PROCEDURE PERFORMED: Left open carpal tunnel release. CPT 45460 INDICATIONS FOR THE PROCEDURE: The patient is a 79-year-old lady, who presents with numbness in radial fingers and EMG, consistent with carpal tunnel syndrome. All conservative management and failed. After a discussion of the risks and benefits of the procedure, consent was signed for the procedure. DETAILS OF PROCEDURE: Patient was met in the preoperative holding area and the correct side was marked as the operative extremity. The patient was brought back to the operative suite and a hand table was placed. A tourniquet was placed on the left arm. A timeout was performed which correctly identified the procedure to be performed, the operative site as well as the team members. Next, MAC anesthesia was induced. Local infiltration of 1% lidocaine mixed with 0.5% ropivacaine was infiltrated in the volar wrist. Next, the arm was prepped and draped in a sterile fashion. A timeout was performed again that confirmed the site and the procedure. Next, the patient's arm was exsanguinated using the Esmarch bandage and the tourniquet was inflated to 250 mmHg. A incision was made longitudinally in line between the middle & ring ray from Harmon's cardinal line to the wrist crease. Sharp dissection was used to the level of the palmar fascia. This was incised in line with the incision in line with its fibers. Kasden retractors used to retract the fat and the fibers out of the way and revealed the transverse carpal ligament. This was incised in the proximal distal fashion to the level of the palmar fat. Once we saw this, we retracted back in order to release the proximal end of the carpal tunnel ligament. The median nerve was visualized in its entirety throughout this part of the procedure. There were no masses in the carpal tunnel noted. The nerve did not look very hyperemic. Once I was satisfied with the release and it was checked both proximally and distally with a finger in the incision, it was irrigated with copious amounts of normal saline. Wound was then closed with 4-0 nylon in interrupted fashion. Skin was cleaned and the tourniquet was let down. The wounds were dressed with Adaptic, gauze, Webril and a sterile Jose wrap. Next, the patient was transported to the PACU in stable condition. I was present for the entire case. ESTIMATED BLOOD LOSS: Minimal. COMPLICATIONS: None. DISPOSITION: The patient will be discharged home when pain is controlled from PACU. Follow up in 2 weeks to get sutures removed. Light weightbearing restrictions. Surgical Findings: See operative note Complications Complications: No
--- NOTE | 2024-10-25 12:41 | POSTOPAN2_ITS ---
Anesthesia Postop Eval I Sum Postop Eval Completion status Anesthesia document: Postop Eval 1 completed: Yes Anesthesia Postop Eval I Summary Anesthesia Postop Eval I Summary: Anesthesia Postop Eval I: Assessment Summary Airway patent Yes 10/25/24 08:10 [email or web address] Spontaneous unlabored Yes 10/25/24 08:10 [email or web address] respirations Mental status Awake 10/25/24 08:10 [email or web address] nausea No 10/25/24 08:10 [email or web address] Vomiting No 10/25/24 08:10 [email or web address] Anesthesia Postop Eval I: Fluid Summary Crystalloid volume administer 300 10/25/24 08:10 [email or web address] (ml) Colloids volume administered ( ml) Blood Product volume administered (ml) Total IV fluid infused 300 10/25/24 08:10 [email or web address] Anesthesia Postop Eval I: Summary Notes Anesthesia Complication No 10/25/24 08:10 [email or web address] Anesthesia Complication Comment: Post-operative progress note Anesthesia: Postop Eval II Evaluation Mental status: Awake and Calm Pain Level: 1 nausea: No Vomiting: No Complications Anesthesia Complication: No
--- NOTE | 2024-10-25 12:41 | PCM.POSTANE2 ---
Anesthesia Postop Eval I Sum Postop Eval Completion status Anesthesia document: Postop Eval 1 completed: Yes Anesthesia Postop Eval I Summary Anesthesia Postop Eval I Summary: Anesthesia Postop Eval I: Assessment Summary Airway patent Yes 10/25/24 08:10 [email or web address] Spontaneous unlabored Yes 10/25/24 08:10 [email or web address] respirations Mental status Awake 10/25/24 08:10 [email or web address] nausea No 10/25/24 08:10 [email or web address] Vomiting No 10/25/24 08:10 [email or web address] Anesthesia Postop Eval I: Fluid Summary Crystalloid volume administer 300 10/25/24 08:10 [email or web address] (ml) Colloids volume administered ( ml) Blood Product volume administered (ml) Total IV fluid infused 300 10/25/24 08:10 [email or web address] Anesthesia Postop Eval I: Summary Notes Anesthesia Complication No 10/25/24 08:10 [email or web address] Anesthesia Complication Comment: Post-operative progress note Anesthesia: Postop Eval II Evaluation Mental status: Awake and Calm Pain Level: 1 nausea: No Vomiting: No Complications Anesthesia Complication: No
== END 2024-10-25 09:24 | disposition home or self-care (01) ==
LOC: SDC 05:55 → AC 05:56
PROVIDERS: PCP Internal Medicine; Referring Provider Orthopaedic Surgery Orthopaedic Surgery of the Spine; Visit Provider Orthopaedic Surgery Orthopaedic Surgery of the Spine
PROC: (CPT 64721; principal; 2024-10-25 07:15)
DX: G56.02 Carpal tunnel syndrome, left upper limb (principal); I11.0 Hypertensive heart disease with heart failure; I50.32 Chronic diastolic (congestive) heart failure; I48.0 Paroxysmal atrial fibrillation; I42.9 Cardiomyopathy, unspecified; M51.16 Intervertebral disc disorders with radiculopathy, lumbar region; K21.9 Gastro-esophageal reflux disease without esophagitis; Z79.899 Other long term (current) drug therapy; Z79.01 Long term (current) use of anticoagulants; Z87.891 Personal history of nicotine dependence; Z86.73 Personal history of transient ischemic attack (TIA), and cerebral infarction without residual deficits; Z86.718 Personal history of other venous thrombosis and embolism
CPT/HCPCS: 64721; 01810; J2405

== ENCOUNTER 2025-03-01 20:51 | Emergency (ER) | payer MEDICARE, SELFPAY ==
[2025-03-01 20:52] VITALS: BP 104/93; PULSE 91; RESP 16; TEMP 36.6; O2SAT 95; BMI 26.3
--- OUTSIDE RECORDS SUMMARY | 2025-03-01 22:24 | XMS RPT_ITS | CCD ---
Author Organization [facility] Providers Care Firer Automatic Stoker Name Role Phone Maxim Ibarra S Unavailable [...] Provider Dr. Agustin Alcantara Attending Provider [phone] RENEE Maldonado Attending Provider Dr. Minerva Shaver Primary Care Provider Dr. Minerva Shaver Referring Provider RENEE Negron Attending Provider Dr. Jovanni Schofield Attending Provider Dr. Maxim Iabrra Attending Provider Dr. Agustin Alcantara Attending Provider [...] [phone] Fred, Dr. Pan Other Provider Dr. Minerva Shaver Referring Provider [...] Provider Sindhu, Dr. Palma Referring Provider Dieudonne WORSHIP LEADER, WORSHIP LEADER-C Caterina Attending Provider Dr. Jovanni Schofield Attending Provider Maxim Ibarra S Unavailable [place], Dr. Palma Primary Care Provider Sindhu, Dr. Palma Referring Provider Dieudonne WORSHIP LEADER, WORSHIP LEADER-C Caterina Attending Provider Sindhu, Dr. Palma Primary [...] Unavailable Dr. Minerva Shaver Referring Provider Pete WORSHIP LEADER, WORSHIP LEADER-Yves Carpio Attending Provider Sindhu, Dr. Palma Primary Care Provider Dr. Maxim Ibarra Attending Provider Fred, Dr. [place] Other Provider Fred, Dr. Pan Referring Provider [...] Provider MD Mata Dailey Attending Provider Roof WORSHIP LEADER, WORSHIP LEADER-C Nagi Carpio Attending Provider Minerva Shaver MD Primary Care Provider Carlton RN, Nikki Castellon Unavailable Unavailabl e Minerva Shaver MD Primary Care Provider Maxim Ibarra MD Unavailable Laith Montes MD Unavailable Jennifer Rudd PA-C Unavailable Older RADIATOR CORE TESTER.BOLT SORTER, Dianna Unavailable Fco Vidales PA-C Unavailable Dr. Minerva Shaver MD Primary Care Provider Dr. Janes Zamudio DO Attending Provider Dr. Janes Zamudio DO Emergency Provider Dr. Minerva Shaver MD Referring Provider Roof WORSHIP LEADER-CNagi Attending Provider Roof WORSHIP LEADER-CNagi Referring Provider Dr. Saul Guzman DO Attending Provider Dr. Saul Guzman DO Emergency Provider Tiffanie HICKS, Dr. Anne Attending Provider Tiffanie HICKS, Dr. Anne Referring Provider Blaire PA-C, Jennifer L Unavailable Ivette PA-C, Fco Unavailable Sindhu HICKS, Dr. Palma Primary Care Provider Sindhu HICKS, Dr. Palma Referring Provider Roof WORSHIP LEADER-C, Nagi Carpio Attending Provider Ada Winkler Attending Provider Ada Winkler Referring Provider Sindhu HICKS, Dr. Palma Primary Care Provider Sindhu HICKS, Dr. Palma Referring Provider Roof WORSHIP LEADER-C, Nagi Carpio Attending Provider Ada Winkler Other Provider Catie HICKS, Dr. Wray Attending Provider Sindhu HICKS, Dr. Palma Primary Care Provider Dr. Saul uGzman DO Attending Provider Thomas MORALES, Dr. Hughes Emergency Provider Maxim Ibarra MD Unavailable William TERRAZAS, Maya Unavailable Fred HICKS, Dr. Pan Attending Provider rFed HICKS, Dr. Pan Referring Provider Dr. Maxim Ibarra MD Other Provider Cande Rasmussen Attending Provider Unavailable Aleks HICKS, Dr. Archibald Attending Provider Dr. Dragan Fink MD Referring Provider Dr. Dragan Fink MD Other Provider GANTA, MINERVA C Primary Care Unavailable GANTA, [...] Primary Care Unavailable ERLINDA CASEY Referring Unavailable SAVONA, ALLI Sood Attending Unavailable NAGI SHARMA Referring Unavailable GANTA, MINERVA C Primary Care Unavailable GANTA, MINERVA C Primary Care Unavailable SAVONA, ALLI J Admitting Unavailable SAVONA, ALLI J Attending Unavailable JANES ZAMUDIO Referring Unavailable CONSULT, CARDIOLOGY - EP Consulting Unavail able TOÑA PERSAUD Admitting Unavailable TOÑA PERSAUD Attending Unavailable GANTA, MINERVA C Primary Care Unavailable GANTA, MINERVA C Primary Care Unavailable TAYLOR MCKEE Admitting Unavailable CONSULT, CARDIOLOGY - EP Consulting Unavail able ERLINDA CASEY Referring Unavailable PEDRO BEAL Attending Unavailable Dr. Minerva Shaver MD Primary Care Provider Dr. Minerva Shaver MD Referring Provider Pete ALEXANDER-Nagi Marinelli Attending Provider Dr. Minerva Shaver MD Primary Care Provider Ada Winkler Attending Provider Ada Winkler Referring Provider Dr. Minerva Shaver MD Referring Provider Dr. Minerva Shaver MD Primary Care Provider Dr. Minerva Shaver MD Primary Care Physician Nagi Ramsey Attending Physician Dr. Maxim Ibarra MD Attending Physician Dr. Maxim Ibarra MD Nurse Practitioner Cande Rasmussen Attending Physician Unavailable Aleks HICKS, Dr. Archibald Attending Physician Aleks HICKS, Dr. Archibald Nurse Practitioner Kanwal MORALES, Dr. Baig Attending Physician OLDER, DIANNA Referring Unavailable GANTA, MINERVA Primary Care Unavailable Sindhu HICKS, Dr. Palma Primary Care Physician Fred HICKS, Dr. Pan Attending Physician Sindhu HICKS, Dr. Palma Referring Provider Roof WORSHIP LEADER-C, Nagi Carpio Attending Physician Ganta, Minerva Primary Care Unavailable Fred, [place] Referring Unavailable FredMaxim del rio Attending Unavailable Saul Guzman Attending Unavailable Ganta, Minerva Primary Care Unavailable Ganta, Minerva Primary Care Unavailable Jovanni Schofield Attending Unavailable Ganta, Minerva Referring Unavailable Ganta, Minerva Primary Care Unavailable Basali, Omid Attending Unavailable Basali, Ayman Referring Unavailable Heide, Ada Attending Unavailable Heide, Ada Referring Unavailable Ganta, Minerva Primary Care Unavailable Heide, Ada Attending Unavailable Heide, Ada Referring Unavailable Ganta, Minerva Primary Care Unavailable Dragan Fink Referring Unavailable Dragan Fink Attending Unavailable Ganta, Minerva Primary Care Unavailable Heide, Ada Attending Unavailable Ganta, Minerva Primary Care Unavailable Heide, Ada Referring Unavailable Roof WORSHIP LEADER, Nagi H Attending Unavailable Ganta, Minerva Primary Care Unavailable Ganta, Minerva Referring Unavailable Heide, Ada Attending Unavailable Ganta, Minerva Primary Care Unavailable Ganta, Minerva Referring Unavailable Roof WORSHIP LEADER, Nagi H Attending Unavailable Ganta, Minerva Primary Care Unavailable Ganta, Minerva Referring Unavailable Roof WORSHIP LEADER, Nagi H Referring Unavailable Roof WORSHIP LEADER, Nagi H Attending Unavailable Ganta, Minerva Primary Care Unavailable Roof WORSHIP LEADER, Nagi H Attending Unavailable Roof WORSHIP LEADER, Nagi H Referring Unavailable Ganta, Minerva Primary Care Unavailable Ganta, Minerva Primary Care Unavailable Basali, Ayman Referring Unavailable Basali, Ayman Attending Unavailable Roof WORSHIP LEADER, Nagi H Referring Unavailable Roof WORSHIP LEADER, Nagi H Attending Unavailable Ganta, Minerva Primary Care Unavailable Ganta, Minerva Primary Care Unavailable Basali, Ayman Attending Unavailable Basali, Ayman Referring Unavailable Ganta, Minerva Primary Care Unavailable Janes Zamudio Attending Unavailable Fred, Maxim Attending Unavailable Ganta, Minerva Primary Care Unavailable Fink, Dragan Attending Unavailable Ganta, Minerva Referring Unavailable Ganta, Minerva Primary Care Unavailable Ganta, Minerva Primary Care Unavailable Fred, [place] Attending Unavailable Ganta, Minerva Referring Unavailable Ganta, Minerva Primary Care Unavailable Fred, [place] Attending Unavailable Ganta, Minerva Primary Care Unavailable Fred, [place] Attending Unavailable Ganta, Minerva Primary Care Unavailable Saul Guzman Attending Unavailable Ganta, Minerva Primary Care Unavailable Fred, Maxim Attending Unavailable Roof WORSHIP LEADER, Nagi H Attending Unavailable Ganta, Minerva Primary Care Unavailable Ganta, Minerva Referring Unavailable Ganta, Minerva Primary Care Unavailable Ganta, Minerva Referring Unavailable Roof WORSHIP LEADER, Nagi H Attending Unavailable Roof WORSHIP LEADER, Nagi H Attending Unavailable Ganta, Minerva Primary Care Unavailable Ganta, Minerva Referring Unavailable Fink, Dragan Attending Unavailable Ganta, Minerva Primary Care Unavailable Ganta, Minerva Referring Unavailable Cande Rasmussen Attending Unavailable Ganta, Minerva Primary Care Unavailable Ganta, Minerva Referring Unavailable Fred, [place] Attending Unavailable Ganta, Minerva Primary Care Unavailable Ganta, Minerva Primary Care Unavailable NoltRisa Attending Unavailable BorrusoJovanni Attending Unavailable Ganta, Minerva Referring Unavailable Ganta, Minerva Primary Care Unavailable Ganta, Minerva Primary Care Unavailable Fred, Maxim Consulting Unavailable Fred, Maxim Referring Unavailable Fred, Maxim Attending Unavailable Fink, Dragan Attending Unavailable Fink, Dragan Consulting Unavailable Fink, Dragan Referring Unavailable Ganta, Minerva Primary Care Unavailable Heide, Ada Referring Unavailable Heide, Ada Consulting Unavailable Ahmad, Arsal Attending Unavailable Ganta, Minerva Primary Care Unavailable Ganta, Minerva Primary Care Unavailable Fred, [place] Attending Unavailable Ganta, Minerva Primary Care Unavailable Ganta, Minerva Referring Unavailable Fred, [place] Attending Unavailable Roof WORSHIP LEADER, Nagi H Attending Unavailable Ganta, Minerva Primary Care Unavailable Ganta, Minerva Referring Unavailable Roof WORSHIP LEADER, Nagi H Referring Unavailable Roof WORSHIP LEADER, Nagi H Attending Unavailable Ganta, Minerva Primary Care Unavailable GANTA, MINERVA Primary Care Unavailable OLDER, DIANNA Attending Unavailable GANTA, MINERVA Primary Care Unavailable OLDER, DIANNA Referring Unavailable GANTA, MINERVA Primary Care Unavailable GANTA, MINERVA Primary Care Unavailable OLDER, DIANNA Attending Unavailable GANTA, MINERVA Primary Care Unavailable OLDER, DIANNA Referring Unavailable GANTA, MINERVA Primary Care Unavailable OLDER, DIANNA Referring Unavailable GANTA, MINERVA Primary Care Unavailable OLDER, DIANNA Attending Unavailable GANTA, MINERVA Primary Care Unavailable CLUTTER, NADIR Referring Unavailable GANTA, MINERVA Primary Care Unavailable LAITH MONTES Referring Unavailable GANTA, MINERVA Primary Care Unavailable OLDER, DIANNA Attending Unavailable GANTA, MINERVA Primary Care Unavailable GANTA, MINERVA Attending Unavailable GANTA, MINERVA Primary Care Unavailable OLDER, DIANNA Attending Unavailable GANTA, MINERVA Primary Care Unavailable OLDER, DIANNA Attending Unavailable GANTA, MINERVA Primary Care Unavailable OLDER, DIANNA Referring Unavailable GANTA, MINERVA Primary Care Unavailable OLDER, DIANNA Referring Unavailable GANTA, MINERVA Primary Care Unavailable OLDER, DIANNA Referring Unavailable GANTA, MINERVA Primary Care Unavailable OLDER, DIANNA Attending Unavailable GANTA, MINERVA Primary Care Unavailable OLDER, DIANNA Attending Unavailable GANTA, MINERVA Primary Care Unavailable GANTA, MINERVA Primary Care Unavailable GANTA, MINERVA Referring Unavailable GANTA, MINERVA Primary Care Unavailable OLDER, DIANNA Attending Unavailable GANTA, MINERVA Primary Care Unavailable OLDER, DIANNA Referring Unavailable GANTA, MINERVA Primary Care Unavailable LAITH MONTES Attending Unavailable GANTA, MINERVA Primary Care Unavailable FCO VIDALES Attending Unavailable Allergies Allergy Classification Reported Allergen(s) Allergy Type Date of Onset Reaction(s) Facility Adhesive Tape (1 source) Adhesive Tape Substance Allergy 03-31-20 23 Rash [facility] Work Phone: Calcium Channel Blockers (1 source) dilTIAZem Drug Allergy 01-19-20 15 Swelling [facility] Work Phone: guaiFENesin / Phenylephrine (1 source) guaiFENesin / Phenylephrine Drug Allergy 03-06-20 07 Rash [facility] NSAIDs (3 sources) Etodolac Drug Allergy 01-30-20 11 Other: See Comments, Swelling [facility] Opioid Agonists (1 source) Codeine Drug Allergy 01-22-20 06 Vomiting [facility] raNITIdine (1 source) raNITIdine Drug Allergy 05-29-19 17 Rash, [facility] Work Phone: Serotonin Reuptake Inhibitors (SSRIs) (1 source) traZODone Drug Allergy 08-20-19 15 Other: See Comments [facility] Work Phone: (20 sources) Codeine; Translations: [CODEINE] Drug Allergy 01-22-20 06 Vomiting, Nausea and vomiting [facility] (20 sources) dilTIAZem; Translations: [DILTIAZEM HCL] Drug Allergy 01-19-20 15 Swelling [facility] Work Phone: (20 sources) Etodolac; Translations: [ETODOLAC] Drug Allergy 07-06-19 13 Other: See Comments, Palpitations [facility] (20 sources) guaiFENesin / Phenylephrine; Translations: [PHENYLEPHRINE- AIFENESIN] Drug Allergy 03-06-20 07 Rash [facility] Work Phone: (20 sources) meloxicam; Translations: [MELOXICAM] Drug Allergy 05-25-19 13 Other: See Comments, Palpitations [facility] Work Phone: (20 sources) Naproxen; Translations: [NAPROXEN] Drug Allergy 01-30-20 11 Swelling [facility] Work Phone: (20 sources) raNITIdine; Translations: [RANITIDINE HCL] Drug Allergy 05-29-19 17 Rash, Swelling [facility] Work Phone: (20 sources) traZODone; Translations: [TRAZODONE] Drug Allergy 08-20-19 15 Other: See Comments, Other (See Comments) [facility] Work Phone: (20 sources) surgical tape adhesives [Other] Propensity to adverse reactions 09-01-19 09 Rash [facility] Work Phone: (20 sources) Adhesive agent; Translations: [ADHESIVE] Propensity to adverse reactions 10-12-19 17 Rash [facility] (20 sources) Albuterol Drug Allergy 12-22-19 22 Other [facility] (20 sources) Amiodarone Drug Allergy 12-22-19 22 Severe dyspnea after taking PO Amiodarone [facility] (20 sources) HYDROcodone; Translations: [hydrocodone bitartrate] Drug Allergy 12-22-19 22 Vomiting [facility] (20 sources) Morphine Drug Allergy 12-22-19 22 Vomiting [facility] (1 source) steroid Allergy to substance 12-22-19 22 causes Afib [facility] Work Phone: (20 sources) predniSONE Drug Allergy 03-06-20 22 Other [facility] Comment on above: a-fib (9 sources) dilTIAZem; Translations: [DILTIAZEM] Drug Allergy 01-19-20 15 Swelling, Anaphylaxis [facility] (20 sources) Adhesive Tape; Translations: [ADHESIVE TAPE (ROSINS)] Allergy to substance 03-31-20 23 Rash [facility] Work Phone: (4 sources) Acetaminophen / HYDROcodone Drug Allergy 04-13-20 24 Nausea and Vomiting [facility] (4 sources) Aluminum aspirin Drug Allergy 04-13-20 24 Dizzy/Vertigo [facility] (4 sources) Etodolac Propensity to adverse reactions to drug 03-08-20 24 [facility] (4 sources) meloxicam Drug Allergy 03-08-20 24 [facility] (4 sources) Phenylalanine Drug Allergy 03-08-20 24 [facility] (4 sources) raNITIdine Drug Allergy 03-08-20 24 [facility] (4 sources) *Adhesive Tape Propensity to adverse reactions 03-08-20 24 Rash [facility] (1 source) Albuterol Drug Allergy 01-28-20 25 [facility] (1 source) Amiodarone Drug Allergy 01-28-20 25 [facility] (1 source) Codeine Drug Allergy 01-28-20 25 [facility] (1 source) dilTIAZem Drug Allergy 01-28-20 25 [facility] (1 source) Etodolac Drug Allergy 01-28-20 25 [facility] (1 source) Morphine Drug Allergy 01-28-20 25 [facility] (1 source) Naproxen Drug Allergy 01-28-20 25 [facility] (1 source) predniSONE Drug Allergy 01-28-20 25 [facility] Medications Current Medications Medication Drug Class(es) [...] Comment on above: Take 1 tablet by [facility] twice daily for 10 days. apixaban 5 [...] 5 mg PO TWICE A DAY 180 3 June 25, 2024 5:10pm September 24, 2024 [...] daily. Active benzonatate 100 mg oral capsule (20 sources) Non-narcotic Antitussive Start: 07-15-2024 take 1 [...] above: Take 1 tablet by wendy once daily. Calc Carb-Mag Ox-D3-Zinc Gluc 333 mg-133 mg- 1.67 mcg-5 mg tablet (20 sources) Start: 04-19-2024 take 1.67 tablets by mouth once daily Calc Carb-Mag Ox-D3-Zinc Gluc 333 mg-133 mg- 1.67 mcg-5 mg tablet Active 1 {tbl} PO DAILY April 19, 2024 1:00am Complies with drug therapy Start: 04-19-2024 take 1.67 tablets by mouth once daily Start: 04-19-2024 take 1.67 tablets by mouth [...] Take 1 tablet by mouth daily. Active KMVCYNP-ATRQDOCIG-KMAQ ORAL (20 sources) CALCIUM-MAGNESIU M-ZINC ORAL Take [...] mg PO TWICE A DAY 60 30 0 February 26, 2021 12:00am March 27, 2021 [...] Comment on above: Take 1 capsule by [facility] twice daily. doxycycline hyclate 100 mg oral [...] Discontinued 100 mg PO TWICE A DAY 20 0 March 06, 2022 12:00am March 27, 2022 2:14pm Comment on above: Take 1 tablet by [facility] twice daily for 10 days. Take 1 capsule by [facility] twice daily for 7 days. Take 1 tablet by [facility] two times a day for 10 days. fluticasone propionate 0.05 mg/actuat metered dose nasal spray (20 sources) Corticosteroid Start: End: take 2 spray(s) by mouth once daily fluticasone (FLONASE) 50 mcg/actuation nasal spray Use 2 Sprays in each nostril once daily. Rinse mouth after use. 1 Each 5 08/09/2024 Active Start: 08-11-2023 Fluticasone Pr opionate 50 mcg/actuation spray,suspension Active 2 NMA INTRANASAL daily as needed for allergy symptoms August 11, 2023 12:00am Complies with drug therapy Start: 08-11-2023 Fluticasone Pr opionate Active 2 SPRAY INTRANASAL daily August 11, 2023 12:00am Start: 03-31-2023 End: 08-06-2024 take 2 spray(s) by mouth once daily fluticasone (FLONASE) 50 mcg/actuation nasal spray Use 2 Sprays in each nostril once daily. Rinse mouth after use. 1 Each 03/31/2023 08/06/2024 Discontinued Comment on above: Use 2 Sprays in each nostril once daily. Rinse mouth after use. Fluticasone-Umeclidin- Vilanter (20 sources) Anticholinergic, Corticosteroid, beta2-Adrenergic Agonist Start: 08-11-2023 Tymlplzmyzy-Cknfbcfac-Lk lanter (Trelegy Ellipta) 100-62.5-25 mcg blister with device Active 1 NMA INHALATION daily August 11, 2023 12:00am Complies with drug therapy Start: 08-11-2023 Start: 08-11-2023 Fluticasone-Um eclidin-Vilanter (Trelegy Ellipta) 100-62.5-25 mcg blister with device Active 1 NMA INHALATION daily August 11, 2023 12:00am Start: 08-11-2023 Fluticasone-Um eclidin-Vilanter (Trelegy Ellipta) 100-62.5-25 mcg blister with device Active 1 EACH INHALATION daily August 11, 2023 12:00am Start: 08-04-2023 End: 06-17-2024 take 1 puff(s) by inhalation once daily lpkddqmhobc-xeuvwpgie-nrnbajpz (TRELEGY ELLIPTA) 100-62.5-25 mcg inhalation powder Inhale 1 Puff as instructed once daily. 1 Each 06/17/2024 Active Start: 01-27-2023 End: 08-02-2023 take 1 puff(s) by inhalation once daily iddkycemurh-wjmrusuay-wltagksl (TRELEGY ELLIPTA) 100-62.5-25 mcg inhalation powder Inhale 1 Puff as instructed once daily. 1 Each 5 01/27/2023 08/02/2023 Discontinued Comment on above: Inhale 1 Puff as ins tructed once daily. furosemide 20 mg oral tablet (20 sources) Loop Diuretic Start: 01-27-2025 End: 01-27-2025 take 1 tablet by mouth once daily Furosemide 20 mg tablet Active 20 mg PO daily 90 3 January 27, 2025 11:28am Complies with drug therapy Start: 01-27-2025 take 1 tablet by wendy once daily Furosemide (Lasix) 40 mg tablet Active 40 mg PO daily January 27, 2025 12:00am Complies with drug therapy Start: 10-04-2024 End: 10-08-2024 take 60 mg by mouth once daily 60 mg, Oral, DAILY, Fir st dose (after last modification) on 10/04/24 at 1430, Until Discontinued Start: 07-27-2024 take 2 tablets by [facility] once daily Furosemide 20 mg tablet Active 40 mg PO daily July 27, 2024 11:42am Start: 04-19-2024 End: 07-27-2024 take 1 tablet by mouth three times daily Furosemide 20 mg tablet Discontinued 20 mg PO THREE TIMES A DAY April 19, 2024 1:00am July 27, 2024 11:43am Start: 04-17-2024 End: 01-27-2025 take 3 tablets by mouth once daily Furosemide 20 mg tablet Discontinued 60 mg PO daily July 27, 2024 11:42am January 27, 2025 11:08am Start: 04-16-2024 End: 04-17-2024 take 60 mg [...] mg PO TWICE A DAY 270 90 3 April 12, 2024 12:30pm April 19, 2024 10:04am Start: 12-22-2023 End: 03-26-2024 Furosemide 40 mg tablet Disc ontinued 60 mg PO .COMPLEX 180 3 December 22, 2023 3:10pm March 26, 2024 5:43pm 60 mg orally daily: may need to take twice daily as needed for weight gain, leg swelling or shortness of breath; Needs extra tablets; Start: 06-14-2022 take 1 tablet by wendy th twice daily furosemide (LASIX) 40 mg tablet Take 1 tablet by mouth twice daily. 08/29/2022 Active Start: 09-14-2019 End: 12-22-2023 Furosemide 40 mg tablet Disc ontinued 40 mg PO .COMPLEX 180 3 January 27, 2023 11:49am December 22, 2023 3:10pm 40 mg orally daily: may need to take twice daily as needed for weight gain, leg swelling or shortness of breath; Needs extra tablets Start: 11-27-2018 End: 09-14-2019 take 1 tablet by mouth twice daily Furosemide 40 mg tablet Discontinued 40 mg PO TWICE A DAY 180 3 July 29, 2019 10:51am September 14, 2019 10:52am Start: 11-02-2018 End: 11-27-2018 take 1 tablet by mouth once daily Furosemide 40 MG tablet Discontinued 40 mg PO DAILY 60 0 November 02, 2018 12:00am November 27, 2018 10:14am Start: 09-08-2017 End: 03-17-2018 Furosemide 40 mg tablet Disc ontinued 40 mg PO .prn September 08, 2017 3:44pm March 17, 2018 5:04pm Start: 10-10-2016 End: 03-17-2018 take 1 tablet by mouth twice daily Furosemide 40 MG tablet Discontinued 40 mg PO BID@1000,1800 60 1 October 10, 2016 12:00am September 08, 2017 3:46pm End: 04-17-2024 take 1.5 tablets by mouth twice daily furOSEmide 40 MG tablet Take 1.5 tablets by mouth 2 times daily. 04/17/2024 Discontinued Comment on above: Take 1 tablet by wendy th once daily. Take 1 tablet by wendy th twice daily. gabapentin 100 mg oral capsule (14 sources) Anti-epileptic Agent Start: 10-22-2024 take 1 capsule by mouth three times daily Gabapentin 100 mg capsule Active 100 mg PO THREE TIMES A DAY October 22, 2024 12:00am Complies with drug therapy Start: 09-27-2024 End: 10-08-2024 take 100 mg by mouth three times daily 100 mg, Oral, 3 TIMES DAILY, First dose on Fri10/01/24 at 2130, Until Discontinued ibuprofen 600 mg oral tablet (2 sources) Nonsteroidal Anti-inflammatory Drug Start: 01-01-2022 End: 01-08-2022 take 1 tablet by mouth every six [...] metered dose inhaler (20 sources) Anticholinergic Start: 01-23-2023 take 2 puff(s) by inhalation every six hours as needed for wheezing Ipratropium (ATROVENT) 17 mcg/actuation inhaler Inhale 2 Puffs as instructed every 6 hours as needed for wheezing/shortne ss of breath. 1 Each 1 01/23/2023 Active Ipratropium 17 M CG/ACT Aero Soln inhaler Inhale 2 puffs every 6 hours. max 12 inhalations/day Active Comment on above: Inhale 2 Puffs as in structed every 6 hours as needed for wheezing/shortness of breath. 24 hr metoprolol succinate 50 mg extended release oral tablet (20 sources) beta-Adrenergic Karson Start: 01-28-20 End: 01-28-20 take 1 tablet by mouth twice daily Metoprolol Succinate 50 mg tablet extended release 24 hr Active 50 mg PO TWICE A DAY 180 January 27, 2025 11:29am Complies with drug therapy Start: 10-02-2024 End: 10-08-2024 75 mg, Oral, [...] tablet 3 09/30/2024 10/08/2024 Discontinued Start: 09-29-2024 End: 01-27-2025 Metoprolol Succinate 25 mg t ablet extended release 24 hr Discontinued 50 mg PO TWICE A DAY September 29, 2024 11:27am January 27, 2025 11:04am Start: 09-29-2024 End: 09-29-2024 Metoprolol Succinate 25 [...] Hold for HR Start: 03-16-2024 End: 04-19-2024 take 1 tablet by mouth twice daily Metoprolol Succinat e 25 mg tablet extended release 24 hr Discontinued 50 mg PO TWICE A DAY March 16, 2024 9:49am April 19, 2024 10:12am Dose decreased, pt wants 25 mg tablets Start: 03-16-2024 End: 04-19-2024 Metoprolol Succinate 25 [...] 28, 2024 12:00am March 16, 2024 9:50am Dose decreased, pt wants 25 mg tablets Start: 09-29-2023 End: 01-28-2024 take 2 tablets by mouth twice daily Metoprolol Succinate 50 mg tablet extended release 24 hr Discontinued 25 mg PO TWICE A DAY 180 December 11, 2023 9:32am January 28, 2024 12:30pm Start: 05-19-2023 End: 04-19-2024 take 1 tablet by mouth twice daily Metoprolol Succinat e 50 mg tablet extended release 24 hr Discontinued 50 mg PO TWICE A DAY 180 3 July 17, 2023 3:54pm December 11, 2023 [...] Discontinued 100 mg PO TWICE A DAY 30 July 29, 2022 5:01pm August 11, 2022 [...] Discontinued 50 mg PO TWICE A DAY 30 July 25, 2022 4:16pm July 29, 2022 5:02pm Start: 04-15-2022 End: 07-25-2022 take 1 tablet by mouth twice daily Metoprolol Succinat e 25 mg tablet extended release 24 hr Discontinued 25 mg PO TWICE A DAY 180 May 24, 2022 3:44pm July 25, 2022 4:26pm Start: 06-20-2021 End: 04-15-2022 take 1 tablet by mouth once daily Metoprolol Succinate 25 mg tablet extended release 24 hr Discontinued 25 mg PO DAILY 90 3 June 20, 2021 4:58pm April 15, 2022 6:27pm this is a dose increase Start: 01-19-2021 End: 06-20-2021 take 2 tablets by mouth once daily Metoprolol Succinat e 25 mg tablet extended release 24 hr Discontinued 12.5 mg PO DAILY 45 3 May 10, 2021 5:33pm June 20, 2021 [...] Discontinued 100 mg PO TWICE A DAY 1 November 16, 2018 2:41pm December 04, 2018 1:45pm Take 100mg in a.m. and 50mg p.m. Start: 11-04-2018 End: 11-16-2018 Metoprolol Succinate 100 MG tablet Discontinued 100 mg PO DAILY 30 November 04, 2018 12:00am November 16, 2018 2:42pm Take 100mg in a.m. and 50mg p.m. Start: 11-04-2018 End: 12-04-2018 take 2 tablets by mouth once daily in the morning, then take 1 tablet by mouth in the evening Metoprolol Succinate 50 MG tablet extended release 24 hr Discontinued 50 mg PO DAILY 30 November 04, 2018 12:00am December 04, 2018 [...] mg PO TWICE A DAY 180 90 3 October 27, 2018 12:13pm November 02, 2018 1:00pm Start: 09-08-2017 End: 10-27-2018 take 1 tablet by mouth every twenty-four hours Metoprolol Succinate 50 mg tablet extended release 24 hr Discontinued PO 90 90 0 September 08, 2017 12:00am October 27, 2018 12:15pm Start: 10-10-2016 End: 09-08-2017 take 1 tablet by mouth twice daily Metoprolol Tartrate 100 MG tablet Discontinued 100 mg PO TWICE A DAY 60 1 October 10, 2016 12:00am September 08, 2017 [...] MG tablet Discontinued 50 mg PO DAILY 30 0 January 11, 2015 11:23am April 13, 2015 11:54am Start: 03-18-2013 End: 01-11-2015 take 1 tablet by mouth once daily Metoprolol Succinate 100 MG tablet Discontinued 100 mg PO DAILY 30 0 March 18, 2013 1:00am January 11, 2015 11:21am Start: 03-17-2013 End: 03-18-2013 take 1 tablet by mouth once daily Metoprolol Succinate 200 MG tablet Discontinued 200 mg PO DAILY 30 3 March 17, 2013 1:00am March 18, 2013 [...] Suspended take 1 tablet by mouth once amrk y Multiple Vitamin (MULTI-DAY PO) Take 1 [...] Multivitamin With Folic Acid 1 TABLET tablet (20 sources) Start: 03-15-2013 take 1 tablet by mouth once daily Multivitamin With Folic Acid 1 TABLET tablet Active 1 {tbl} PO DAILY March 15, 2013 1:00am supplement Complies with drug therapy Start: 03-15-2013 take 1 tablet by wendy th once daily Start: 03-15-2013 take 1 tablet by wendy th once daily Multivitamin With Folic Acid 1 TABLET tablet Active 1 {tbl} PO DAILY March 15, 2013 1:00am supplement Start: 03-15-2013 take 1 tablet by wendy th once daily Multivitamin With Folic Acid 1 TABLET tablet Active 1 {tbl} PO DAILY March 15, 2013 1:00am MULTIVITAMIN WITH MINERALS ( ONE-A-DAY 50 PLUS ORAL) (20 sources) MULTIVITAMIN WIT H MINERALS (ONE-A-DAY 50 PLUS ORAL) Take by mouth. Active MULTIVITAMIN WIT H MINERALS (ONE-A-DAY 50 PLUS ORAL) Take by mouth. 0 Active Comment on above: Take by mouth. mv-mn/iron/folic acid/herb 190 (VITAMIN D3 COMPLETE ORAL) (4 sources) mv-mn/iron/folic acid/herb 190 (VITAMIN D3 COMPLETE ORAL) Take by mouth . 0 Active nitrofurantoin, macrocrystals 25 mg / nitrofurantoin, monohydrate 75 mg oral capsule (2 sources) Nitrofuran Antibacterial Start: 01-13-20 End: 01-20-20 take 1 capsule by mouth twice daily nitrofurantoin monohydrate and macrocrystal (MACROBID) 100 mg capsule Take 1 capsule by mouth two times a day for 7 days. 14 capsule 01/12/2025 01/19/2025 Active Start: 12-13-2024 End: 12-18-2024 take 1 capsule by mouth twice daily at mealtime nitrofurantoin monohydrate and macrocrystal (MACROBID) 100 mg capsule Take 1 capsule by mouth two times a day with meals for 5 days. 10 capsule 12/13/2024 12/18/2024 Active nystatin 482298 unt/ml oral suspension (20 sources) Polyene Antifungal Start: 10-22-2024 End: 11-05-2024 take 1 mL by mouth four times daily as needed Nystatin 100,000 unit/mL suspension Active 1 mL PO .qid as needed for thrush October 22, 2024 12:00am use after trelegy and flonase to prevent / tx thrush Complies with drug therapy Start: 04-19-2024 End: 07-31-2024 take 1 mL by mouth once daily Nystatin 100,000 unit/mL suspension Discontinued 1 mL PO daily April 19, 2024 1:00am July 31, 2024 10:39pm Start: 04-13-2024 End: 04-17-2024 500,000 Units, Swish & Swall ow, 4 TIMES DAILY NEEDED, Starting on Tu04/13/24 at 0031, Until 04/17/24 at 1737, Thrush [...] capsule (20 sources) Proton Pump Inhibitor Start: 4 End: take 1 capsule by mouth once daily Omeprazole 40 mg capsule,delayed release(DR/EC) Active 40 mg PO daily December 22, 2023 12:00am Complies with drug therapy Start: 05-22-2022 End: 08-15-2022 take 1 capsule [...] 19, 2021 1:16pm July 25, 2022 3:33pm GERD Start: 01-09-2015 End: 09-08-2017 take 1 capsule by mouth once daily Omeprazole 40 MG capsule,delayed release(DR/EC) Discontinued 40 mg PO DAILY January 09, 2015 12:00am September 08, 2017 3:46pm Comment on above: Take 1 capsule by [facility] daily before breakfast. Take 1 capsule by [facility] twice daily. Take 1 capsule by [facility] once daily. oseltamivir 75 mg oral capsule (1 source) Neuraminidase Inhibitor Start: 025 End: 025 take 1 capsule by mouth twice daily oseltamivir (TAMIFLU) 75 mg capsule Take 1 capsule by mouth two times a day for 5 days. 10 capsule 06/22/2024 06/27/2024 Active polyethylene glycol 3350 093914 mg / potassium chloride 2970 mg / sodium bicarbonate 6740 mg / sodium chloride 5860 mg / sodium sulfate 81693 mg powder for oral solution (1 source) Osmotic Laxative Start: 023 End: 023 peg 3350-Electrolytes (GOLYTELY) 236-22.74-6.74 -5.86 gram suspension Take 4,000 mL by mouth one time only for 1 dose. Refer to printed prep instructions from your provider. 4000 mL 0 05/23/2022 05/23/2022 Active Comment on above: Take 4,000 mL by wendy th one time only for 1 dose. Refer to printed prep instructions from your provider. spironolactone 25 mg oral tablet (20 sources) Aldosterone Antagonist Start: End: take 1 tablet by mouth once daily Spironolactone 25 mg tablet Active 25 mg PO DAILY 10 04March 24, 2024 1:00am Complies with drug therapy sucralfate 100 mg/ml oral suspension (20 sources) [...] needed for stoma April 28, 2024 5:15pm Complies with drug therapy Start: 12-02-2022 End: 01-01-2024 take 10 mL [...] 07, 2022 1:00am December 31, 2022 2:14am Check with primary doctor take 1000 mg by mout h every [...] tablet by wendy th twice daily for 3 days. ubidecarenone 100 mg oral tablet (1 source) Start: 01-28-20 take 10 tablets by mouth once daily Coenzyme Q10 100 mg tablet Active 100 mg PO daily January 27, 2025 12:00am Complies with drug therapy Completed/Discontinued Medications Medication Drug Class(es) Dates Sig [...] on above: Take 2 tablets by mo ksh every 6 hours as needed for pain for up to 7 days. acetaminophen 325 mg / HYDROcodone bitartrate 5 mg oral tablet (12 sources) Opioid Agonist Start: End: Hydrocodone-Acetaminoph en 5-325 mg tablet Discontinued 1 {tbl} PO Q8H as needed for pain 9 3 0 October 25, 2024 November 09, 2024 9:42am Status post carpal tunnel release Other specified postprocedural states aluminum hydroxide 40 mg/ml / magnesium hydroxide 40 mg/ml / simethicone 4 mg/ml oral suspension (3 sources) Start: End: take 30 mL by mouth every six [...] 200 mg PO TWICE A DAY 60 3 July 16, 2022 1:00am July 25, 2022 [...] dose on 10/02/24 at 0900, Until Discontinued take 1 tablet [...] by Patient) azithromycin 250 mg oral tablet (20 sources) Macrolide Antimicrobial Start: 01-03-2023 End: 01-23-2023 azithromycin (ZITHROMAX Z-DUONG) 250 mg tablet Take 2 tablets day one, then, 1 tablet daily until gone. 0 01/03/2023 01/23/2023 Discontinued Start: 01-02-2023 End: 07-04-2023 take 1 tablet by mouth once daily Azithromycin (Zithromax) 500 mg tablet Discontinued 500 mg PO DAILY 3 3 0 January 02, 2023 12:00am July 04, 2023 [...] HOURS, First dose (after last modification) on [place] 10/03/24 at 0900, Until Discontinued Start: 04-13-2024 End: 04-17-2024 take 2 puff(s) by inhalation once daily 2 puff, Inhalation, DAILY, First dose (after last modification) on [facility] 04/15/24 at 0900, Until Discontinued 24 hr buPROPion hydrochloride 150 mg extended release oral tablet (3 sources) Aminoketone Start: 12-10-2024 End: 01-07-2025 take 1 tablet by mouth once daily buPROPion XL (WELLBUTRIN XL) 150 mg 24 hr tablet Take 1 tablet by mouth once daily. 30 tablet 1 12/10/2024 01/07/2025 Discontinued calcium carbonate 648 mg oral tablet [...] 25, 2021 1:00am April 19, 2024 10:08am Check with primary doctor Start: 10-08-2016 End: 01-19-2021 take 1 tablet by mouth once daily Calcium Carbonate 500 MG tablet Discontinued 500 mg PO DAILY October 08, 2016 12:00am January 19, 2021 1:18pm supplement cefdinir 300 mg oral capsule (20 sources) [...] Comment on above: Take 1 capsule by [facility] twice daily for 10 days. Take 1 capsule by [facility] twice daily. cefTRIAXone 1000 mg injection (1 [...] 5,000 Units, Oral, DAILY, First dose on [facility] 10/02/24 at 0900, Until Discontinued Start: 01-19-2021 End: 07-25-2022 Cholecalciferol (Vitamin D3) 25 mcg (1,000 unit) tablet Discontinued 1000 U PO .5xDaily January 19, 2021 1:17pm July 25, 2022 3:32pm supplement Start: 01-09-2015 End: 01-19-2021 take 1 tablet by mouth once daily Cholecalciferol (Vitamin D3) 1,000 UNIT tablet Discontinued 1000 U PO DAILY January 09, 2015 12:00am January 19, 2021 1:18pm supplement take 1 tablet by wendy once daily Cholecalciferol (VITAMIN D-3 PO) Take 1 tablet by mouth daily. Active cyclobenzaprine hydrochloride 10 mg oral tablet (20 sources) Muscle Relaxant Start: 01-08-2021 End: 07-25-2022 take 1 tablet by mouth at bedtime Cyclobenzaprine 10 mg tablet Discontinued 10 mg PO BEDTIME May 07, 2022 1:00am July 25, 2022 3:34pm Comment on above: Take 1 tablet by wendy three times daily as needed for muscle spasm. dapagliflozin 10 mg oral tablet (20 sources) Sodium-Glucose Cotransporter 2 Inhibitor Start: 10-02-2024 End: 10-08-2024 10 mg, Oral, DAILY, First dose on [facility] 10/02/24 at 0900, Until Discontinued, Do not [...] Discontinued 180 mg PO EVERY 12 HOURS 60 1 October 10, 2016 12:00am September 08, 2017 3:44pm Start: 01-11-2015 End: 01-11-2015 Diltiazem Hcl 120 MG capsule Discontinued 180 mg PO DAILY 30 January 11, 2015 12:00am January 11, 2015 11:22am Start: 01-11-2015 End: 01-11-2015 take 180 mg by mouth once daily Diltiazem Hcl Disconti nued 180 MG PO DAILY January 11, 2015 12:00am January 11, 2015 11:22am Start: 03-17-2013 End: 03-18-2013 take 1 capsule by mouth once daily Diltiazem Hcl 120 MG capsule Discontinued 120 mg PO DAILY 30 March 17, 2013 1:00am March 18, [...] 3 doses are missed, contact the prescribing marker shipments as soon as possible. 60 capsule 3 08/11/2024 10/08/2024 Discontinued (Stop Taking at Discharge) Start: 04-17-2024 End: 10-22-2024 take 1 capsule by mouth twice daily Dofetilide 125 mcg capsule Discontinued 125 ug PO TWICE A DAY April 19, 2024 1:00am October 22, 2024 10:11am Start: 04-13-2024 End: 04-17-2024 take 1 capsule by mouth every twelve hours Dofetilide 125 MCG capsule Take 1 capsule by mouth every 12 hours. If 3 doses are missed, contact the prescribing marker shipments as soon as possible. 60 capsule 3 04/17/2024 Active empagliflozin 10 mg oral tablet (20 sources) Sodium-Glucose Cotransporter 2 Inhibitor Start: 02-04-2023 End: 12-03-2024 take 1 tablet by mouth once daily Empagliflozin (Jardiance) 10 mg tablet Discontinued 10 mg PO DAILY 90 3 December 03, 2023 8:53am December 03, 2024 10:54am Comment on above: Take 10 mg by mouth once daily. enteric contrast (will be provided with radiology [...] 25, 2022 12:00am December 22, 2023 11:03am Check with primary doctor Comment on above: Take 1 tablet by wendy twice daily. ferrous sulfate 324 mg delayed [...] at 0900, Until Discontinued Start: 04-14-2024 End: 04-17-2024 60 mg, Oral, DAILY, First do se [...] Discontinued 100 mg PO Q12H 180 April 11, 2023 10:45am March 16, 2024 9:49am Start: 08-05-2022 End: 08-11-2022 Flecainide 100 mg tablet Discontinued 150 mg PO TWICE A DAY 90 August 05, 2022 11:31am August 11, 2022 10:29am Start: 08-05-2022 End: 08-11-2022 take 150 mg by mouth twice daily Flecainide Discontinued 150 MG PO TWICE A DAY 90 August 05, 2022 11:31am August 11, 2022 10:29am Start: 04-27-2022 End: 07-16-2022 Flecainide 150 mg tablet Discontinued 100 mg PO Q12H 180 3 April 27, 2022 6:18pm July 16, 2022 2:24pm Start: 04-27-2022 End: 07-16-2022 take 100 mg by mouth every twelve hours Flecainide Discontinued 100 MG PO Q12H 180 April 27, 2022 6:18pm July 16, 2022 2:24pm Start: 03-07-2022 End: 04-27-2022 take 1 tablet by mouth every twelve hours Flecainide 150 mg tablet Discontinued 150 mg PO Q12H 180 3 March 27, 2022 2:10pm April 27, 2022 6:18pm Start: 02-27-2022 End: 03-07-2022 Flecainide 100 mg tablet Discontinued 150 mg PO TWICE A DAY 180 3 February 27, 2022 3:53pm March 07, 2022 8:18am Start: 02-27-2022 End: 03-07-2022 take 150 mg by mouth twice daily Flecainide Discontinued 150 MG PO TWICE A DAY 180 February 27, 2022 3:53pm March 07, 2022 8:18am Start: 02-27-2022 End: 03-07-2022 take 1 tablet by mouth every twelve hours Flecainide 50 mg tablet Discontinued 50 mg PO Q12H 30 0 February 27, 2022 12:00am March 07, 2022 [...] by wendy th two times a day. guaiFENesin 20 mg/ml oral solution (1 source) Start: 10-02-19 End: 10-09-19 take 400 mg by mouth every six hours as needed 250 ml heparin sodium, porcine 100 unt/ml injection (2 sources) Unfractionated Heparin, Anti-coagulant Start: 10-07-19 End: 10-08-19 CONTINUOUS, Starting on 10/06/24 at 1300, Until Meme 10/07/24 at 1708, [...] Start: 04-12-2024 End: 04-13-2024 CONTINUOUS, Starting on 04/12/24 at 2315, Until Fri04/13/24 at 2100, INTERMEDIATE/CARDIAC [...] Topical, 2 TIMES DAILY, First dose on Meme 04/15/24 at 0900, Until Discontinued, Apply to chest iohexol (OMNIPAQUE) 350 MG/ML injection 1-171 mL (1 source) Start: 04-21-2024 End: 04-21-2024 1-171 mL, Intravenous, ONCE, 1 dose, On 04/21/24 at 1600, Extravasation Risk, CT Procedure iv [...] 50 Plus Probiotic) 4 billion cell capsule (20 sources) Start: End: take 4 capsules by mouth once daily [...] Antiarrhythmic, Amide Local Anesthetic Start: 3 End: apply 1 dose transdermal route every twenty-four [...] 400 mg oral tablet (3 sources) Start: End: 800 mg, Oral, ADMINISTER DIRECTED, Starting on Meme 10/07/24 at 1209, Until 10/08/24 at 1539, See admin instructions, For Magnesium [...] DIRECTED, Starting on 10/05/24 at 0748, Until 10/08/24 at 1539, Other, Magnesium Replacement Therapy, If [...] Insomnia Start: 08-11-2023 take 2 tablets by [facility] at bedtime as needed Melatonin 5 mg tablet Active 10 mg PO BEDTIME as needed for insomnia August 11, 2023 12:00am Complies with drug therapy Start: 08-11-2023 take 10 mg by mouth at bedtime Melatonin Active 10 MG PO BEDTIME August 11, 2023 12:00am Start: 01-19-2021 End: 08-11-2023 take 1 capsule by mouth at bedtime Melatonin 3 mg capsule Discontinued 3 mg PO BEDTIME January 19, 2021 12:00am August 11, 2023 10:54am Check with primary doctor take 1 tablet by wendy th once [...] 5:04pm Melatonin-Pyridoxine (Vit B6) 1 EACH tablet (20 sources) Start: 01-09-2015 End: 03-17-2018 take 1 [...] 1 tablet, Oral, DAILY, First dose on Fri10/02/24 at 0900, Until Discontinued Start: 04-13-2024 End: 04-17-2024 take 1 tablet by mouth once daily 1 tablet, Oral, DAILY, First dose on 04/13/24 at 0900, Until Discontinued Nystatin 100,000 unit/mL suspension (17 sources) Start: 04-19-2024 End: 07-31-2024 take 1 mL by mouth once daily Nystatin 100,000 unit/mL suspension Discontinued 1 mL PO daily April 19, 2024 1:00am July 31, 2024 10:39pm Presho-3 Fatty Acids (Fish Oil Concentrate) 1,000 mg capsule (20 sources) Start: 03-17-2018 End: 01-19-2021 take 1 capsule by mouth once daily Presho-3 Fatty Acids (Fish Oil Concentrate) 1,000 mg capsule Discontinued 1000 mg PO DAILY March 17, 2018 1:00am January 19, 2021 1:18pm supplement Start: 03-17-2018 End: 01-19-2021 take 1 capsule by mouth once daily Presho-3 Fatty Acids (Fish Oil Concentrate) 1,000 mg capsule Discontinued 1000 mg PO DAILY March 17, 2018 1:00am January 19, 2021 1:18pm Start: 03-17-2018 End: 01-19-2021 take 1 capsule by mouth once daily Presho-3 Fatty Acids (Fish Oil Concentrate) 1,000 mg capsule Discontinued 1000 MG PO DAILY March 17, 2018 12:00am January 19, 2021 12:18pm Start: 03-17-2018 End: 01-19-2021 take 1 capsule by mouth once daily Presho-3 Fatty Acids (Fish Oil Concentrate) 1,000 mg capsule Discontinued 1000 MG PO DAILY March 17, 2018 1:00am January 19, 2021 1:18pm Presho-3 Fatty Acids-Fish Oil (Fish Oil 1,000 Mg Capsule) 1 EACH capsule (20 sources) Start: 03-15-2013 End: 03-17-2013 take 1 capsule by mouth once daily Presho-3 Fatty Acids-Fish Oil (Fish Oil 1,000 Mg Capsule) 1 EACH capsule Discontinued 1 CAPSULE PO DAILY March 15, 2013 12:00am March 17, 2013 9:44am Start: 03-15-2013 End: 03-17-2013 take 1 capsule by mouth once daily Presho-3 Fatty Acids-Fish Oil (Fish Oil 1,000 Mg Capsule) 1 EACH capsule Discontinued 1 CAPSULE PO DAILY March 15, 2013 1:00am March 17, 2013 10:44am 2 ml ondansetron 2 mg/ml injection (20 sources) Serotonin-3 Receptor Antagonist Start: 04-22-2024 End: 04-22-2024 4 mg, Intravenous, EVERY 4 HOURS NEEDED, Starting on Meme 04/22/24 at 1032, Until Meme 04/22/24 at 1716, Nausea / Vomiting, Post-op/Post-Proc Start: 03-26-2024 End: 04-19-2024 take 1 tablet by mouth every eight hours as needed for nausea and vomiting Ondansetron 4 mg tablet,disintegrating Discontinued 4 mg PO Q8H as needed for nausea and vomiting 7 0 March 26, 2024 1:00am April 19, 2024 [...] 4 HOURS NEEDED as needed for Pain 20 0 October 13, 2016 12:00am September 08, 2017 [...] amount given during procedure. polyethylene glycol 3350 92375 mg powder for oral solution (6 sources) Osmotic Laxative Start: 10-01-2024 End: 10-08-2024 Start: 04-22-2024 End: 04-22-2024 17 g, Oral, DAILY NEEDED, Starting on Meme 04/22/24 at 1032, Until Meme 04/22/24 at 1716, Constipation 1st Line, Post-op/Post-Proc Start: 04-12-2024 End: 04-17-2024 Start: 01-01-2022 End: 01-31-2022 polyethylene glycol 3350 (CT RALAX) 17 gram/dose powder Dissolve 17 grams [...] 40-60 mEq, Oral, ADMINISTER DIRECTED, Starting on Tu10/05/24 at 0748, Until Fri10/08/24 at 1539, See [...] 20-40 mEq, Oral, ADMINISTER DIRECTED, Starting on Tu10/05/24 at 0748, Until Fri10/08/24 at 1539, See [...] take 1 tablet by mouth twice daily Potassium Chloride 20 mEq tablet,ER particles/crystals Discontinued 20 meq PO TWICE A DAY 180 3 June 26, 2021 1:42pm December 21, 2021 11:06am Start: 10-10-2016 End: 04-28-2024 Potassium Chloride 20 [...] above: Take 1 tablet by wendy twice daily. predniSONE 20 mg oral tablet [...] tablet Discontinued 20 mg PO DAILY@0600 30 3 March 17, 2013 1:00am March 18, 2013 3:44pm sennosides, halfway 8.6 mg oral tablet (1 source) Start: End: Sodium Chloride (5 sources) Start: End: Intravenous, at 1 mL/hr, CONTINUOUS NEEDED, Starting [...] 11, 2022 1:00am August 27, 2022 10:26am pt only taking 1/2 pill, ord by Dr. Shaver Comment on above: Take 1 tablet by wendy once daily. Vancomycin (VANCOCIN) 750 mg in Sodium chloride 0.9%, with overfill 282.5 mL (total volume) IVPB (1 source) Start: 10-07-2024 End: 10-07-2024 750 mg (rounded from 810 mg = 15 mg/kg 54 kg Adjusted weight), Intravenous, Administer over 1 Hours, MATTRESS STRIPPER TO PROCEDURE, 1 dose, Starting on Meme [...] on 10/02/24 at 0900, Until Discontinued Start: 04-13-2015 End: 03-17-2018 Cyanocobalamin (Vitamin B-12 ) 500 MCG tablet Discontinued 5000 ug PO DAILY@00 April 13, 2015 1:00am March 17, 2018 5:04pm Start: 04-13-2015 End: 03-17-2018 take 5000 ug by mouth once daily Cyanocobalamin (Vitamin B-12) Discontinued 5000 MCG PO DAILY@799April 13, 2015 1:00am March 17, 2018 5:04pm take 1 tablet by wendy th once daily Cyanocobalamin (VITAMIN B-12 PO) Take 1 tablet by mouth daily. Active warfarin sodium 1 mg oral tablet (20 sources) Vitamin K Antagonist Start: 11-11-2018 End: 11-25-2019 take 1 tablet by mouth once daily, then take 1 tablet by mouth every month Warfarin (Coumadin) 1 mg tablet Discontinued 1 mg PO DAILY Protocol: Patient Instructed to take:warfarin 1 mg (1 Tab) on RAUSCH, TU, WE, TH, SAwarfarin 1 mg (2 Tabs) on MO, 90 July 29, 2019 10:51am November 25, 2019 4:52pm Please contact the information source for Protocol details. Start: 11-02-2018 End: 11-25-2019 take 1 mg by mouth once daily, then take 1 mg by mouth every month Warfarin 3 mg tablet Discontinued 3 mg PO DAILY Protocol: Patient Instructed to take:warfarin 1 mg (1 Tab) on RAUSCH, TU, WE, TH, SAwarfarin 1 mg (2 Tabs) on MO, 90 July 29, 2019 10:51am November 25, 2019 [...] MG tablet Discontinued 2 mg PO DAILY 10 06October 10, 2016 11:11am September 08, 2017 3:47pm Start: 10-08-2016 End: 10-10-2016 Warfarin (Coumadin) 4 MG tab let Discontinued 4 mg PO October 08, 2016 12:00am October 10, 2016 [...] Onset: 5 05-07-2021 Chronic Comment on above: DCCV 2012, 2014, 10/11 08/28, 11/23/18; March 2024; April 2024; Chronic kidney disease (1 source) Chronic kidney disease, unspecified; Translations: [Chronic kidney disease, unspecified] Onset: 5 Chronic Chronic obstructive pulmonary disease and bronchiectasis (20 sources) Panacinar emphysema; 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] Onset: 5 Resolved: 3 04-28-2015 Chronic Coagulation and hemorrhagic disorders (20 sources) Finding related to bruising; Translations: [Spontaneous ecchymoses] 03-06-2022 Episodic Comment on above: on blood thinners Conduction disorders (20 sources) Complete atrioventricular block; Translations: [Atrioventricular block, complete] Onset: 5 10-14-2024 Chronic Comment on above: Acquired from [facility] 10-03 Congestive heart failure; nonhypertensive (20 sources) Congestive heart failure; Translations: [Heart failure, unspecified] Onset: 2 Chronic Delirium, dementia, and amnestic and other cognitive disorders (2 sources) Frailty; Translations: [Age-related physical debility] Onset: 4 04-02-2024 Chronic E Codes: Fall (20 sources) Fall; Translations: [Unspecified fall, initial encounter] 01-23-2023 Episodic Esophageal disorders (20 sources) Moses's esophagus; 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] Onset: 7 Resolved: 6 01-26-2018 Chronic Essential hypertension (20 sources) Hypertensive disorder; Translations: [Essential (primary) hypertension] Onset: 4 07-21-2013 Chronic Fever of unknown origin (9 sources) Fever with chills; Translations: [Fever, unspecified] Episodic Gastrointestinal hemorrhage (3 sources) Hematochezia; Translations: [Melena] 12-26-2022 Episodic Genitourinary symptoms and ill-defined conditions (20 sources) Increased frequency of urination; Translations: [Frequency of micturition] Onset: 4 Resolved: 6 Episodic Headache; including migraine (2 sources) Headache; [...] as recurrent] 12-30-2022 Episodic Malaise and fatigue (20 sources) Fatigue; Translations: [Other fatigue] Onset: Episodic Malignant neoplasm without specification of site (20 sources) Malignant neoplastic disease; Translations: [Malignant (primary) neoplasm, unspecified] 03-06-2022 Chronic Comment on above: forehead - small sin l carcinoma 2020 Mood disorders (3 sources) Depressive disorder; Translations: [Depressive disorder] Onset: 5 12-10-2024 Chronic Nausea and vomiting (1 source) Nausea; Translations: [Nausea] Episodic Nonspecific chest pain (20 sources) Chest pain; Translations: [Chest pain, unspecified] 05-05-2022 Episodic Nutritional deficiencies (1 source) Vitamin D deficiency; Translations: [Vitamin D deficiency, unspecified] Chronic Nutritional deficiencies (1 source) Cobalamin deficiency; Translations: [Deficiency of other specified B group vitamins] Episodic Open wounds of head; neck; and trunk (20 sources) Tear of skin; Translations: [Skin tear] 09-05-2023 Episodic Osteoarthritis (20 sources) Arthritis; Translations: [Unspecified osteoarthritis, unspecified site] Onset: 6 12-27-2021 Chronic Other acquired deformities (4 sources) Degenerative disorder of musculoskeletal system; Translations: [Other secondary scoliosis, site unspecified] 01-26-2025 Chronic Other acquired deformities (1 source) Other secondary scoliosis, site unspecified; Translations: [Other secondary scoliosis, site unspecified] Onset: Chronic Other aftercare (20 sources) Long-term current use of anticoagulant; Translations: [residential (current) use of anticoagulants] 04-27-2022 Episodic Other aftercare (4 sources) 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; Translations: [Long-term (current) use of anticoagulants] 08-08-2022 Episodic Other aftercare (1 source) terminal system operator current use of non-steroidal anti-inflammatory drug; Translations: [Encounter for therapeutic drug level monitoring] 04-02-2024 Episodic Other aftercare (1 source) Taking high risk medication; Translations: [Other jail (current) drug therapy] 04-14-2024 Episodic Other aftercare (20 sources) Long-term current use of drug therapy; Translations: [Encounter for therapeutic drug level monitoring] 03-06-2022 Episodic Other and ill-defined cerebrovascular disease (20 [...] [Arthrodesis status] Onset: 6 02-14-2016 Episodic Other connective tissue disease (20 sources) [...] sprain] 09-02-2022 Episodic Other connective tissue disease (20 sources) Tear of left rotator cuff; Translations: [...] of breath] Episodic Other lower respiratory disease (15 sources) Shortness of breath; Translations: [Shortness of [...] finding of lung field] 06-17-2024 Episodic Other nervous system disorders (20 sources) Carpal tunnel syndrome of left wrist; Translations: [Carpal tunnel syndrome, left upper limb] Onset: 2 01-30-2012 Chronic Other nervous system disorders (2 sources) Carpal tunnel syndrome, left upper limb; Translations: [Carpal tunnel syndrome, left upper limb] Onset: Chronic Other nervous system disorders (20 sources) Difficulty balancing when standing; Translations: [Other abnormalities of gait and mobility] 03-06-2022 Episodic Comment on above: positional virtigo Other nervous system disorders (1 source) Impairment [...] of breast] Onset: 6 Resolved: 6 Episodic Other skin disorders (2 sources) Localized swelling, mass and lump, trunk; Translations: [Soft tissue swelling of chest wall] Onset: 5 Episodic Other upper respiratory disease (1 source) [...] Translations: [Other specified postprocedural states] 11-01-2018 Episodic Comment on above: 2014-dr hoover Residual codes; unclassified (20 sources) Bilateral lower limb edema; Translations: [Localized edema] Episodic Residual codes; unclassified (1 source) Chill; Translations: [Chills (without fever)] Episodic Residual codes; unclassified (5 sources) Localized edema; Translations: [Edema] Onset: 5 12-31-2022 Episodic Residual codes; unclassified (3 sources) History of clinical finding in subject; Translations: [Personal history of other medical treatment] 01-03-2023 Episodic Residual codes; unclassified (1 source) Memory impairment; Translations: [Other amnesia] 04-02-2024 Episodic Residual codes; unclassified (20 sources) History of ablation of atrioventricular node; Translations: [Other specified postprocedural states] 10-14-2024 Episodic Residual codes; unclassified (1 source) Dependent edema; Translations: [Edema, unspecified] 10-22-2024 Episodic Residual codes; unclassified (2 sources) Edema of right lower limb; Translations: [Localized edema] 12-10-2024 Episodic Residual codes; unclassified (1 source) Other specified postprocedural states; Translations: [Other specified postprocedural states] Onset: Episodic Respiratory failure; insufficiency; arrest (adult) (2 sources) Dependence on supplemental oxygen; Translations: [Dependence on supplemental oxygen] 01-03-2023 Chronic Respiratory failure; insufficiency; arrest (adult) (20 sources) Acute respiratory failure; Translations: [Acute respiratory failure with hypoxia] 12-31-2022 Episodic Spondylosis; intervertebral disc disorders; other back problems (20 sources) Cervical spondylosis; Translations: [Other spondylosis with myelopathy, cervical region] Onset: 3 01-19-2021 Chronic Sprains and strains (20 sources) Strain of hamstring muscle; Translations: [Strain of muscle, fascia and tendon of the posterior muscle group at thigh level, unspecified thigh, initial encounter] Onset: 2 Resolved: 6 08-05-2023 Episodic Superficial injury; contusion (20 sources) Contusion of face; Translations: [Contusion of other part of head, initial encounter] Onset: 5 09-05-2023 Episodic Transient cerebral ischemia (6 sources) Transient cerebral ischemia; Translations: [Transient cerebral ischemic attack, unspecified] Onset: 3 09-13-2022 Chronic Unclassified (4 sources) Other persistent atrial fibrillation; Translations: [Other persistent atrial fibrillation] Onset: 4 Unclassified (1 source) Other intervertebral disc degeneration, lumbar region with discogenic back pain and lower extremity pain; Translations: [Other intervertebral disc degeneration, lumbar region with discogenic back pain and lower extremity pain] Onset: 5 Urinary tract infections (6 sources) Urinary tract infectious disease; Translations: [Urinary [...] kidney] Onset: 7 07-16-2006 Episodic Cardiac dysrhythmias (20 sources) Tachycardia; Translations: [Tachycardia, unspecified] Onset: 5 04-15-2022 Episodic Conditions associated with dizziness or vertigo (20 sources) Dizziness; Translations: [Dizziness and giddiness] Onset: 5 12-11-2023 Episodic Heart valve disorders (20 sources) Heart murmur; Translations: [Cardiac murmur, unspecified] Onset: 2 Episodic Mycoses (5 sources) Candidiasis of mouth; Translations: [Candidal stomatitis] Onset: 4 06-30-2023 Episodic Other aftercare (3 sources) Other terminal system operator (current) drug therapy; Translations: [Other jail (current) drug therapy] Onset: 5 Episodic Other aftercare (1 source) Encounter for therapeutic drug level monitoring; Translations: [Encounter for monitoring chronic NSAID therapy] Onset: 4 Episodic Other aftercare (1 source) terminal system operator (current) use of non-steroidal anti-inflammatories (NSAID); Translations: [...] (capsule) sprain] Onset: 3 05-07-2021 Episodic Other gastrointestinal disorders (20 sources) Irritable bowel syndrome; Translations: [Irritable bowel syndrome without diarrhea] Onset: 7 Resolved: 6 05-07-2021 Chronic Other lower respiratory disease (1 source) Other forms of dyspnea; Translations: [Other forms of dyspnea] Onset: 4 Episodic Other lower respiratory disease (1 source) Dyspnea, unspecified; Translations: [Dyspnea, unspecified type] Onset: 5 Episodic Other lower respiratory disease [...] shoulder] Onset: 9 Resolved: 6 09-25-2015 Episodic Phlebitis; thrombophlebitis and thromboembolism (20 sources) [...] source) Edema, unspecified; Translations: [Dependent edema] Onset: 5 Episodic Residual codes; unclassified (1 source) Other amnesia; Translations: [Memory deficit] Onset: 4 Episodic Screening and history of mental health and substance abuse codes (20 sources) Tobacco use and exposure - finding; Translations: [Personal history of nicotine dependence] Onset: 4 06-09-2013 Episodic Spondylosis; intervertebral disc disorders; other back problems (20 sources) Chronic pain; Translations: [Cervicalgia] Onset: 5 03-06-2022 Episodic Substance-related disorders (20 sources) Tobacco user; Translations: [Nicotine dependence, unspecified, uncomplicated] Onset: 7 Resolved: 6 01-10-2016 Chronic Unclassified (20 sources) ovarian surgery 11-01-2018 Comment on above: 2015-dr welch Results Test Name Value Interpretation Reference Range Facility Urinalysis complete panel (U )on 02-23-2025 BACTERIA UL 1364.0 uL High Negative [facility] Comment on above: Order Comment: Speci men Type: URINE SPECIMENOrdering Facility: [facility] Address: [address] [place] [address] Performed By: #### 2 4356-8 ####[place] [facility] [id number] [place] [address] [place] Bilirubin Ql (U) Negative Normal Negative [facility] Comment on above: Order Comment: Speci men Type: URINE SPECIMENOrdering Facility: [facility] Address: [address] [place] [address] Performed By: #### 2 4356-8 ####[place] [facility] [id number] [place] [address] [place] Clarity (Unsp spec) Clear Normal Clear [facility] Comment on above: Order Comment: Speci men Type: URINE SPECIMENOrdering Facility: [facility] Address: [address] [place] [address] Performed By: #### 2 4356-8 ####[place] [facility] [id number] [address] Color (U) Dark Yellow Abnormal Yellow [facility] Comment on above: Order Comment: Speci men Type: URINE SPECIMENOrdering Facility: [facility] Address: [address] [place] [address] Performed By: #### 2 4356-8 ####[place] [facility] [id number] [address] [place] Epithelial cells LM.HPF (Urine sed) [#/Area] None Seen Normal [facility] Comment on above: Order Comment: Speci men Type: URINE SPECIMENOrdering Facility: [facility] Address: [address] [place] [address] Performed By: #### 2 4356-8 ####[place] [facility] [id number] [address] [place] Glucose Test strip (U) [Mass/Vol] 3+ Abnormal Negative [facility] Comment on above: Order Comment: Speci men Type: URINE SPECIMENOrdering Facility: [facility] Address: [address] [place] [address] Performed By: #### 2 4356-8 ####[place] [facility] [id number] [address] [place] Hemoglobin Ql (U) Negative Normal Negative [facility] Comment on above: Order Comment: Speci men Type: URINE SPECIMENOrdering Facility: [facility] Address: [address] [place] [address] Performed By: #### 2 4356-8 ####[place] [facility] [id number] [address] [place] Hyaline casts (Urine sed) [#/Area] 0 /[LPF] Normal 0 /LPF [facility] Comment on above: Order Comment: Speci men Type: URINE SPECIMENOrdering Facility: [facility] Address: [address] [place] [address] Performed By: #### 2 4356-8 ####[place] [facility] [id number] [place] [address] [place] Ketones Ql (U) 1+ Abnormal Negative [facility] Comment on above: Order Comment: Speci men Type: URINE SPECIMENOrdering Facility: [facility] Address: [address] [place] [address] Performed By: #### 2 4356-8 ####[place] [facility] [id number] [place] [address] [place] Leukocyte esterase Test strip Ql (U) Trace Abnormal Negative [facility] Comment on above: Order Comment: Speci men Type: URINE SPECIMENOrdering Facility: [facility] Address: [address] [place] [address] Performed By: #### 2 4356-8 ####[place] [facility] [id number] [place] [address] [place] Nitrite Ql (U) Negative Normal Negative [facility] Comment on above: Order Comment: Speci men Type: URINE SPECIMENOrdering Facility: [facility] Address: [address] [place] [address] Performed By: #### 2 4356-8 ####[place] [facility] [id number] [place] [address] [place] pH (U) 5.5 [pH] Normal 5.0-8.0 [facility] Comment on above: Order Comment: Speci men Type: URINE SPECIMENOrdering Facility: [facility] Address: [address] [place] [address] Performed By: #### 2 4356-8 ####[place] [facility] [id number] [place] [address] [place] Protein (U) [Mass/Vol] Trace Abnormal Negative Cl [facility] Comment on above: Order Comment: Speci men Type: URINE SPECIMENOrdering Facility: [facility] Address: [address] [place] [address] Performed By: #### 2 4356-8 ####[place] [facility] [id number] [place] [address] [place] RBC LM.HPF (Urine sed) [#/Area] 0-2 /HPF Normal 0-2 /HPF [facility] Comment on above: Order Comment: Speci men Type: URINE SPECIMENOrdering Facility: [facility] Address: [address] [place] [address] Performed By: #### 2 4356-8 ####[place] [facility] [id number] [place] [address] [place] Specific gravity (U) [Rel density] 1.028 Normal 1.005-1.030 [facility] Comment on above: Order Comment: Speci men Type: URINE SPECIMENOrdering Facility: [facility] Address: [address] [place] [address] Performed By: #### 2 4356-8 ####[place] [facility] [id number] [place] [address] [place] Urobilinogen Ql (U) 0.2 EU/dL Normal 0.2-1.0 EU/dL [facility] Comment on above: Order Comment: Speci men Type: URINE SPECIMENOrdering Facility: [facility] Address: [address] [place] [address] Performed By: #### 2 4356-8 ####[place] [facility] [id number] [place] [address] [place] WBC LM.HPF (Urine sed) [#/Area] 0-5 /HPF Normal 0-5 /HPF [facility] Comment on above: Order Comment: Speci men Type: URINE SPECIMENOrdering Facility: [facility] Address: [address] [place] [address] Performed By: #### 2 4356-8 ####[place] [facility] [id number] [address] [place] CNOVon 02-21-2025 CNOV Office Visit (INTMWS ) ELIZABETH PERSAUD ([id number]) 1945 F [facility] Date Time Provider Department 02/21/25 1:40 PM DIANNA BALLARD INTCHAIM During your visit today, we recorded the following information about you: Pulse Respiration Blood pressure Weight 78/minute 16/minute 128/80 64 kg Dianna Ballard APRN.[facility] 02/21/2025 4:05 PM Signed CC: Patient presents with: Recheck: Follow up, edema HPI Elizabeth Persaud is a 79 year old female who presents today for follow up but also noticing some dark urine. Recording using Binpress software for draft documentation of the visit was discussed with the patient/authorized direct marketing representative; all questions welcomed and answered. Patient/authorized direct marketing representative agreed to proceed Elizabeth Persaud is a 79-year-old female with a history of CHF, DM, and atrial fibrillation, presenting for follow-up of a pacemaker site swelling, fatigue, and bruising on toes. Pacemaker Site Swelling: - Noted mild swelling near pacemaker site. - Denies erythema, fever, chills, or pain. - No increase in size of swelling. - Recent ultrasound showed no abnormalities or fluid collection. Pacemaker clinic without concern Fatigue: - Persistent fatigue since pacemaker insertion. - Sleeping 8-9 hours per night, with 2-3 nocturnal awakenings. - Denies abdominal pain, fever, chills, or dysuria. - Recent urinalysis showed glucose, trace bilirubin, and trace WBCs; urine culture was normal. - Recent labs showed normal thyroid function, B12, liver enzymes, kidney function, electrolytes, and magnesium levels. Bruising on Toes: - Intermittent bruising on toes, not associated with pain. - Bruising appears below toes and can be seen between them. - Denies trauma or injury to the area. - Wears extra wide Churchill shoes at home, which do not come near the toes. - says the bruising comes and then will be gone for a month or so and then reappear. HTN and CHF: - Managed with Lasix once daily. - Reports weight loss and dietary changes, primarily consuming meat and eggs. - Noted episodes of hypotension, with a recent reading of 98/67 mmHg. - Home blood pressure readings usually around 117/78 mmHg. - Taking metoprolol 50 mg BID. - Kidney protection with jardiance. Recent glucose level was 72 mg/dL. - History of hypoglycemia diagnosed 30-40 years ago. REVIEW OF SYSTEMS See HPI PAST MEDICAL [...] EGD 06/11/2022 EGD TRANSORAL BIOPSY SINGLE/MULTIPLE 02/08/2011 ESOPHAGOGASTRODUODENOS COPY TRANSORAL DIAGNOSTIC 10/06/2013 EGD ESOPHAGOGASTRODUODENOS COPY TRANSORAL DIAGNOSTIC 11/22/2015 EGD ESOPHAGOGASTRODUODENOS COPY TRANSORAL DIAGNOSTIC 02/28/2016 EGD EYE SURGERY HX HERNIA REPAIR HX LIG/TRNSXJ FLP TUBE ABDL/VAG APPR UNI/BI Tubal ligation NEUROPLASTY AND/TRANSPOS MEDIAN NRV CARPAL TUNNE 02/14/2012 Carpal tunnel decomp - right OOPHORECTOMY PARTIAL/TOTAL UNI/BI 07/17/2010 Oophorectomy - left Dr. Manuel Hoover - Dr. Alessio Welch PAST SURGICAL HISTORY OF NECK SURGERY, anterior [...] YRS/> REDUCIBLE 07/17/2010 Hernia repair, umbilical >5yr [facility] Dr Manuel Hoover SHX COSMETIC SURGERY SKIN BIOPSY HX ALLERGIES Cardizem [Diltiazem Hcl], Codeine, Entex [Phenylephrine-Guaifen esin], Etodolac, Meloxicam, Naproxen, Tape [Adhesive Tape (Rosins)], Trazodone, and Zantac [Ranitidine Hcl] MEDICATIONS om (more content not included)... Normal [facility] US CHEST WALL/SOFT TISSUEon 01-28-2025 US CHEST WALL/SOFT TISSUE * * *Final Report* * * DATE OF EXAM: Jan 28 2025 1:24PM [facility] 1047 - US CHEST WALL/SOFT TISSUE / PROCEDURE REASON: Soft tissue swelling of chest wall * * * * Physician Interpretation * * * * EXAM TITLE: ULTRASOUND CHEST WALL/SOFT TISSUE DATE: 01/28/2025 COMPARISON: None. CLINICAL INDICATION/HISTORY: Focal swelling left chest wall near pacemaker site. TECHNIQUE: Real time scanning at the area palpable concern left chest wall performed by the croze cutter. Images captured and stored in a permanent archive in PACS. FINDINGS: No sonographic abnormality to correspond with the area of clinical concern. No mass or fluid collections. Subcutaneous and muscular tissues appear relatively symmetric to the contralateral side on survey imaging. IMPRESSION: No sonographic abnormality corresponding with the area of clinical concern left chest wall. Correlate clinically and follow-up as indicated. Manager State: [place] Transcribe Date/Time: Jan 30 2025 9:52A Dictated by : JANES SPEAR MD This examination was interpreted and the report reviewed and electronically signed by: JANES SPEAR MD on Jan 30 2025 9:53AM EST [id number] Normal [facility] Basic metabolic 2000 panelon 01-27-2025 Anion gap [Moles/Vol] 14 mmol/L Normal 8-15 [facility] Comment on above: Order Comment: Speci men Type: BLOOD SPECIMENOrdering Facility: [facility] Address: [address] [place], [place] [address] Performed By: #### 2 4321-2 ####[facility] LABCLIA [id number] [facility] CENTERLID AVENUECOALINGA REGIONAL MEDICAL CENTERK [address] [place] [address] [place] Calcium [Mass/Vol] 10.1 mg/dL Normal 8.5-10.2 [facility] Comment on above: Order Comment: Speci men Type: BLOOD SPECIMENOrdering Facility: [facility] Address: [address] [place] [address] Performed By: #### 2 4321-2 ####[facility] LABCLIA [id number] [facility] CENTERLID AVENUEDESK [address] [place] [address] [place] Chloride [Moles/Vol] 105 mmol/L Normal 98-[address] [facility] Comment on above: Order Comment: Speci men Type: BLOOD SPECIMENOrdering Facility: [facility] Address: [address] [place], [place] [address] Performed By: #### 2 4321-2 ####[facility] LABCLIA [id number] [facility] [address] [place] [address] [place] CO2 [Moles/Vol] 22 mmol/L Normal 22-30 [facility] Comment on above: Order Comment: Speci men Type: BLOOD SPECIMENOrdering Facility: [facility] Address: [address] [place], [place] [address] Performed By: #### 2 4321-2 ####[facility] LABCLIA [id number] [facility] [address] [address] [place] Creatinine [Mass/Vol] 0.84 mg/dL Normal 0.58-0.96 [facility] Comment on above: Order Comment: Speci men Type: BLOOD SPECIMENOrdering Facility: [facility] Address: [address] [place], [place] [address] Performed By: #### 2 4321-2 ####[facility] LABCLIA [id number] [place] [address] [place] eGFRcr SerPlBld CKD-EPI 2020 72 mL/min/1.73m??? Normal >=60 [facility] Comment on above: Order Comment: Darryl cintron Type: BLOOD SPECIMENOrdering Facility: [facility] Address: [address] [place] [address] Result Comment: Natasha mated Glomerular Filtration Rate [...] reflect actual GFR. Performed By: #### 2 4321-2 ####[facility] LABIA [id number] [place] [address] [place] Glucose [Mass/Vol] 72 mg/dL Low 74-99 [facility] Comment on above: Order Comment: Darryl cintron Type: BLOOD SPECIMENOrdering Facility: [facility] Address: [address] [place] [address] Result Comment: The [place] Diabetes Association (ADA) provides guidance for cutoff [...] Standards of Medical Care in Diabetes 2016, [place] [employer] Association. Diabetes Care. 2016.39(Suppl 1). Performed By: #### 2 4321-2 ####[facility] LABCLIA [id number] [id number] [address] [place] Potassium [Moles/Vol] 4.7 mmol/L Normal 3.7-5.1 [facility] Comment on above: Order Comment: Speci men Type: BLOOD SPECIMENOrdering Facility: [facility] Address: [address] [place] [address] Performed By: #### 2 4321-2 ####[facility] LABCLIA [id number] [place] [address] [place] Sodium [Moles/Vol] 141 mmol/L Normal 136-144 [facility] Comment on above: Order Comment: Speci men Type: BLOOD SPECIMENOrdering Facility: [facility] Address: [address] [place] [address] Performed By: #### 2 4321-2 ####[facility] LABIA [id number] [place] [address] [place] Urea nitrogen [Mass/Vol] 18 mg/dL Normal 7-21 [facility] Comment on above: Order Comment: Speci men Type: BLOOD SPECIMENOrdering Facility: [facility] Address: [address] [place] [address] Performed By: #### 2 4321-2 ####[facility] LABCLIA [id number] [place] [address] [place] CBC W Auto Differential pane l (Bld)on 01-27-2025 Basophils (Bld) [#/Vol] 0.05 10*3/uL Normal <0.11 [facility] Comment on above: Order Comment: Speci men Type: BLOOD SPECIMENOrdering Facility: [facility] Address: [address] [place] [address] Performed By: #### 5 7021-8 ####[facility] LABCLIA [id number] [place] [address] [place] Basophils/100 WBC (Bld) 0.6 % Normal [facility] Comment on above: Order Comment: Speci men Type: BLOOD SPECIMENOrdering Facility: [facility] Address: [address] [place] [address] Performed By: #### 5 7021-8 ####[facility] LABCLIA [id number] [place] [address] [place] Differential cell count method Nom (Bld) Auto Normal [facility] Comment on above: Order Comment: Speci men Type: BLOOD SPECIMENOrdering Facility: [facility] Address: [address] [place] [address] Performed By: #### 5 7021-8 ####[facility] LABCLIA [id number] [place] [address] [place] Eosinophils (Bld) [#/Vol] 0.17 10*3/uL Normal <0.46 [facility] Comment on above: Order Comment: Speci men Type: BLOOD SPECIMENOrdering Facility: [facility] Address: [address] [place] [address] Performed By: #### 5 7021-8 ####[facility] LABIA [id number] [place] [address] [place] Eosinophils/100 WBC (Bld) 2.1 % Normal [facility] Comment on above: Order Comment: Speci men Type: BLOOD SPECIMENOrdering Facility: [facility] Address: [address] [place] [address] Performed By: #### 5 7021-8 ####[facility] LABCLIA [id number] [place] [address] [place] Erythrocyte distribution width (RBC) [Ratio] 13.2 % Normal 11.5-15.0 [facility] Comment on above: Order Comment: Speci men Type: BLOOD SPECIMENOrdering Facility: [facility] Address: [address] [place] [address] Performed By: #### 5 7021-8 ####[facility] LABCLIA [id number] [place] [address] [place] Hematocrit (Bld) [Volume fraction] 40.1 % Normal 36.0-46.0 [facility] Comment on above: Order Comment: Speci men Type: BLOOD SPECIMENOrdering Facility: [facility] Address: [address] [place] [address] Performed By: #### 5 7021-8 ####[facility] LABCLIA [id number] [place] [address] [place] Hemoglobin (Bld) [Mass/Vol] 13.3 g/dL Normal 11.5-15.5 [facility] Comment on above: Order Comment: Speci men Type: BLOOD SPECIMENOrdering Facility: [facility] Address: [address] [place] [address] Performed By: #### 5 7021-8 ####[facility] LABCLIA [id number] [place] [address] [place] Immature granulocytes (Bld) [#/Vol] 0.05 10*3/uL Normal <0.10 [facility] Comment on above: Order Comment: Speci men Type: BLOOD SPECIMENOrdering Facility: [facility] Address: [address] [place] [address] Performed By: #### 5 7021-8 ####[facility] LABIA [id number] [place] [address] [place] Immature granulocytes/100 WBC (Bld) 0.6 % Normal [facility] Comment on above: Order Comment: Speci men Type: BLOOD SPECIMENOrdering Facility: [facility] Address: [address] [place] [address] Performed By: #### 5 7021-8 ####[facility] LABCLIA [id number] [place] [address] [place] Lymphocytes (Bld) [#/Vol] 2.85 10*3/uL Normal 1.00-4.00 [facility] Comment on above: Order Comment: Speci men Type: BLOOD SPECIMENOrdering Facility: [facility] Address: [address] [place] [address] Performed By: #### 5 7021-8 ####[facility] LABCLIA [id number] [place] [address] [place] Lymphocytes/100 WBC (Bld) 35.8 % Normal [facility] Comment on above: Order Comment: Speci men Type: BLOOD SPECIMENOrdering Facility: [facility] Address: [address] [place] [address] Performed By: #### 5 7021-8 ####[facility] LABCLIA [id number] [place] [address] [place] MCH (RBC) [Entitic mass] 30.2 pg Normal 26.0-34.0 [facility] Comment on above: Order Comment: Speci men Type: BLOOD SPECIMENOrdering Facility: [facility] Address: [address] [place] [address] Performed By: #### 5 7021-8 ####[facility] LABCLIA [id number] [place] [address] [place] MCHC (RBC) [Mass/Vol] 33.2 g/dL Normal 30.5-36.0 [facility] Comment on above: Order Comment: Speci men Type: BLOOD SPECIMENOrdering Facility: [facility] Address: [address] [place] [address] Performed By: #### 5 7021-8 ####[facility] LABCLIA [id number] [place] [id number] [place] MCV (RBC) [Entitic vol] 90.9 fL Normal 80.0-100.0 [facility] Comment on above: Order Comment: Speci men Type: BLOOD SPECIMENOrdering Facility: [facility] Address: [address] [place] [address] Performed By: #### 5 7021-8 ####[facility] LABCLIA [id number] [facility] [address] [place] [address] [place] Monocytes (Bld) [#/Vol] 0.76 10*3/uL Normal <0.87 [facility] Comment on above: Order Comment: Speci men Type: BLOOD SPECIMENOrdering Facility: [facility] Address: [address] [place] [address] Performed By: #### 5 7021-8 ####[facility] LABCLIA [id number] [facility] [address] [place] [address] [place] Monocytes/100 WBC (Bld) 9.6 % Normal [facility] Comment on above: Order Comment: Speci men Type: BLOOD SPECIMENOrdering Facility: [facility] Address: [address] [place] [address] Performed By: #### 5 7021-8 ####[facility] LABCLIA [id number] [address], [place] [address] [place] Neutrophils (Bld) [#/Vol] 4.07 10*3/uL Normal 1.45-7.50 [facility] Comment on above: Order Comment: Speci men Type: BLOOD SPECIMENOrdering Facility: [facility] Address: [address] [place] [address] Performed By: #### 5 7021-8 ####[facility] LABCLIA [id number] [place] [id number] [place] Neutrophils/100 WBC (Bld) 51.3 % Normal [facility] Comment on above: Order Comment: Speci men Type: BLOOD SPECIMENOrdering Facility: [facility] Address: [address] [place] [address] Performed By: #### 5 7021-8 ####[facility] LABCLIA [id number] [facility] [address] [place] [address] [place] Nucleated RBC (Bld) [#/Vol] 10*3/uL Normal <0.01 [facility] Comment on above: Order Comment: Speci men Type: BLOOD SPECIMENOrdering Facility: [facility] Address: [address] [place] [address] Performed By: #### 5 7021-8 ####[facility] LABIA [id number] [place] [address] [place] Nucleated RBC/100 WBC (Bld) [Ratio] 0.0 /100 WBC Normal [facility] Comment on above: Order Comment: Speci men Type: BLOOD SPECIMENOrdering Facility: [facility] Address: [address] [place] [address] Performed By: #### 5 7021-8 ####[facility] LABIA [id number] [place] [address] [place] Platelet mean volume (Bld) [Entitic vol] 10.0 fL Normal 9.0-12.7 [facility] Comment on above: Order Comment: Speci men Type: BLOOD SPECIMENOrdering Facility: [facility] Address: [address] [place] [address] Performed By: #### 5 7021-8 ####[facility] LABIA [id number] [place] [address] [place] Platelets (Bld) [#/Vol] 274 10*3/uL Normal 150-400 [facility] Comment on above: Order Comment: Speci men Type: BLOOD SPECIMENOrdering Facility: [facility] Address: [address] [place] [address] Performed By: #### 5 7021-8 ####[facility] LABIA [id number] [place] [address] [place] RBC (Bld) [#/Vol] 4.41 10*6/uL Normal 3.90-5.20 [facility] Comment on above: Order Comment: Speci men Type: BLOOD SPECIMENOrdering Facility: [facility] Address: [address] [place] [address] Performed By: #### 5 7021-8 ####[facility] LABCLIA [id number] [place] [id number] [place] WBC (Bld) [#/Vol] 7.95 10*3/uL Normal 3.70-11.00 [facility] Comment on above: Order Comment: Speci men Type: BLOOD SPECIMENOrdering Facility: [facility] Address: [address] [place] [address] Performed By: #### 5 7021-8 ####[facility] LABCLIA [id number] [place] [id number] [place] Cardiology Visit Reporton Cardiology Visit Report Normal [facility] Bacteria Ur Culton Bacteria identified Cx Nom (U) ORGANISM ID: 1 10,000 -<50,000 CFU/ml Normal urogenital jose Normal [facility] Comment on above: Performed By: #### 2 4356-8, 630-4 ####[facility] LABCLIA [id number] [place] [id number] [place] CNOVon 01-26-2025 CNOV Office Visit (INTMWS ) ELIZABETH PERSAUD ([id number]) 1945 F [facility] Date Time Provider Department 01/26/25 5:20 PM DIANNA BALLARD INTMWS During your visit today, we recorded the following information about you: Pulse Respiration Blood pressure Weight 92/minute 16/minute 142/80 66.2 kg Dianna Ballard APRN.[employer]ORTER 01/26/2025 6:55 PM Signed CC: Patient presents with: Recheck: Swelling above pacemaker HPI Elizabeth Steen Persaud is a 79 year old female who presents today for swelling to pacemaker site. Recording using ambient AI software for draft documentation of the visit was discussed with the patient/authorized direct marketing representative; all questions welcomed and answered. Patient/authorized direct marketing representative agreed to proceed Pacemaker Site Swelling: - Elizabeth Persaud noticed swelling around the pacemaker site approximately one week ago. - Evaluated at the pacemaker clinic in [place]; pacemaker was deemed to be in the correct position with no signs of infection. Has appointment with her cardiology group tomorrow. - Elizabeth reports tenderness at the site since the surgery, but no increase in tenderness with the swelling. - No associated fever, erythema, or drainage. - She feels swelling appears to be moving towards the neck. - Denies any trauma to the area. Dyspnea: - Intermittent episodes of dyspnea while at rest, with SpO2 readings around 95%. - Recent episodes of wheezing. - Denies palpitations, chest pressure, edema outside of pacemaker site, or cough. REVIEW OF SYSTEMS See HPI PAST MEDICAL [...] EGD 06/11/2022 EGD TRANSORAL BIOPSY SINGLE/MULTIPLE 02/08/2011 ESOPHAGOGASTRODUODENOS COPY TRANSORAL DIAGNOSTIC 10/06/2013 EGD ESOPHAGOGASTRODUODENOS COPY TRANSORAL DIAGNOSTIC 11/22/2015 EGD ESOPHAGOGASTRODUODENOS COPY TRANSORAL DIAGNOSTIC 02/28/2016 EGD EYE SURGERY HX HERNIA REPAIR HX LIG/TRNSXJ FLP TUBE ABDL/VAG APPR UNI/BI Tubal ligation NEUROPLASTY AND/TRANSPOS MEDIAN NRV CARPAL TUNNE 02/14/2012 Carpal tunnel decomp - right OOPHORECTOMY PARTIAL/TOTAL UNI/BI 07/17/2010 Oophorectomy - left Dr. Manuel Hoover - Dr. Alessio Welch PAST SURGICAL HISTORY OF NECK SURGERY, anterior [...] YRS/> REDUCIBLE 07/17/2010 Hernia repair, umbilical >5yr [facility] Dr Manuel Hoover SHX COSMETIC SURGERY SKIN BIOPSY HX ALLERGIES Cardizem [Diltiazem Hcl], Codeine, Entex [Phenylephrine-Guaifen esin], Etodolac, Meloxicam, Naproxen, Tape [Adhesive Tape (Rosins)], [...] mouth three times a day as needed. fluticasone-umeclidin- vilanter (TRELEGY ELLIPTA) 100-62.5-25 mcg inhalation powder Inhale 1 Puff as instructed once daily. sucralfate (CARAFATE) 100 mg/mL suspension Take 10 mL by mouth before meals and at bedtime. (560cc=2wks) diclofenac, EC, (VOLTAREN) 75 mg EC tablet Takes once daily PRN for acute pain/inflammation. Take with food. metoprolol succinate ER (TOPROL XL) 50 mg 24 hr tablet Take 1 tablet by mouth two ti (more content not included)... Normal [facility] HIP, UNI W/ Pelvis 2-3 Views on 01-26-2025 HIP, UNI W/ Pelvis 2-3 Views Normal [facility] Orthopedic Visit Reporton Orthopedic Visit Report Normal [facility] Urinalysis complete panel (U )on 01-26-2025 Bacteria LM.HPF (Urine sed) [#/Area] Negative Normal Negative [facility] Comment on above: Order Comment: Speci men Type: URINE SPECIMENOrdering Facility: [facility] Address: [address] [place] [address] Performed By: #### 2 4356-8, 630-4 ####[facility] LABCLIA [id number] [place] [address] [place] Bilirubin Ql (U) Negative Normal Negative [facility] Comment on above: Order Comment: Speci men Type: URINE SPECIMENOrdering Facility: [facility] Address: [address] [place] [address] Performed By: #### 2 4356-8, 630-4 ####[facility] LABCLIA [id number] [place] [id number] [place] Clarity (Unsp spec) Clear Normal Clear [facility] Comment on above: Order Comment: Speci men Type: URINE SPECIMENOrdering Facility: [facility] Address: [address] [place] [address] Performed By: #### 2 4356-8, 630-4 ####[facility] LABCLIA [id number] [facility] [place] [id number] [place] Color (U) Yellow Normal Yellow [facility] Comment on above: Order Comment: Speci men Type: URINE SPECIMENOrdering Facility: [facility] Address: [address] [place] [address] Performed By: #### 2 4356-8, 630-4 ####[facility] LABCLIA [id number] [id number] [address] [place] Epithelial cells LM.HPF (Urine sed) [#/Area] None Seen Normal [facility] Comment on above: Order Comment: Speci men Type: URINE SPECIMENOrdering Facility: [facility] Address: [address] [place] [address] Performed By: #### 2 4356-8, 630-4 ####[facility] LABCLIA [id number] [address] [place] Glucose Test strip (U) [Mass/Vol] 3+ Abnormal Negative [facility] Comment on above: Order Comment: Speci men Type: URINE SPECIMENOrdering Facility: [facility] Address: [address] [place] [address] Performed By: #### 2 4356-8, 758-4 ####[facility] LABCLIA [id number] [address] [place] Hemoglobin Ql (U) Negative Normal Negative [facility] Comment on above: Order Comment: Speci men Type: URINE SPECIMENOrdering Facility: [facility] Address: [address] [place] [address] Performed By: #### 2 4356-8, 036-4 ####[facility] LABCLIA [id number] [address] [place] Hyaline casts (Urine sed) [#/Area] 0 /[LPF] Normal 0 /LPF [facility] Comment on above: Order Comment: Speci men Type: URINE SPECIMENOrdering Facility: [facility] Address: [address] [place] [address] Performed By: #### 2 4356-8, 459-4 ####[facility] LABCLIA [id number] [address] [place] Ketones Ql (U) Trace Abnormal Negative [facility] Comment on above: Order Comment: Speci men Type: URINE SPECIMENOrdering Facility: [facility] Address: [address] [place] [address] Performed By: #### 2 4356-8, 630-4 ####[facility] LABCLIA [id number] [address], [place] [address] [place] Leukocyte esterase Test strip Ql (U) 1+ Abnormal Negative [facility] Comment on above: Order Comment: Speci men Type: URINE SPECIMENOrdering Facility: [facility] Address: [address] [place] [address] Performed By: #### 2 4356-8, 630-4 ####[facility] LABCLIA [id number] [address], [place] [address] [place] Nitrite Ql (U) Negative Normal Negative [facility] Comment on above: Order Comment: Speci men Type: URINE SPECIMENOrdering Facility: [facility] Address: [address] [place] [address] Performed By: #### 2 4356-8, 630-4 ####[facility] LABCLIA [id number] [address], [place] [address] [place] pH (U) 5.5 [pH] Normal 5.0-8.0 [facility] Comment on above: Order Comment: Speci men Type: URINE SPECIMENOrdering Facility: [facility] Address: [address] [place] [address] Performed By: #### 2 4356-8, 630-4 ####[facility] LABCLIA [id number] [place] [address] [place] Protein (U) [Mass/Vol] Negative Normal Negative [facility] Comment on above: Order Comment: Speci men Type: URINE SPECIMENOrdering Facility: [facility] Address: [address] [place] [address] Performed By: #### 2 4356-8, 630-4 ####[facility] LABCLIA [id number] [address], [place] [address] [place] RBC LM.HPF (Urine sed) [#/Area] 0-2 /HPF Normal 0-2 /HPF [facility] Comment on above: Order Comment: Speci men Type: URINE SPECIMENOrdering Facility: [facility] Address: [address] [place] [address] Performed By: #### 2 4356-8, 630-4 ####[facility] LABIA [id number] [place] [address] [place] Specific gravity (U) [Rel density] 1.036 High 1.005-1.030 [facility] Comment on above: Order Comment: Speci men Type: URINE SPECIMENOrdering Facility: [facility] Address: [address] [place] [address] Performed By: #### 2 4356-8, 630-4 ####[facility] [id number] [place] [address] [place] Urobilinogen Ql (U) 0.2 EU/dL Normal 0.2-1.0 EU/dL [facility] Comment on above: Order Comment: Speci men Type: URINE SPECIMENOrdering Facility: [facility] Address: [address] [place] [address] Performed By: #### 2 4356-8, 630-4 ####[facility] [id number] [place] [address] [place] WBC LM.HPF (Urine sed) [#/Area] /[HPF] Abnormal 0-5 /HPF [facility] Comment on above: Order Comment: Speci men Type: URINE SPECIMENOrdering Facility: [facility] Address: [address] [place] [address] Performed By: #### 2 4356-8, 630-4 ####[facility] LABIA [id number] [place] [address] [place] XR CHEST 2V FRONTAL/LATon XR CHEST 2V FRONTAL/LAT * * *Final Repor t* * * DATE OF EXAM: Jan 26 2025 6:25PM WOX [id number] - XR CHEST 2V FRONTAL/LAT / PROCEDURE REASON: Shortness of breath * * * * Physician Interpretation * * * * EXAMINATION: CHEST RADIOGRAPH (2 VIEW FRONTAL and LATERAL) CLINICAL HISTORY: Shortness of breath MQ: [id number] EXAM DATE/TIME: 01/26/2025 6:25 PM COMPARISON: 07/05/2024 RESULT: Lines, tubes, and devices: Stable left chest wall single chamber ICD with transvenous lead extending into the right ventricle. Lungs and pleura: No consolidation. Upper lobe predominant emphysema. Linear atelectasis in the middle lobe, lingula and posterior lung bases. No pleural effusion. No pneumothorax. Cardiomediastinal silhouette: The cardiomediastinal silhouette is mildly enlarged. Mild atherosclerotic calcifications of the aortic arch. Bones and soft tissues: Degenerative changes are present within the thoracic spine. Lower anterior cervical spine fixation plate again noted. IMPRESSION: No acute radiographic abnormality. Upper lobe predominant emphysema. Manager State: [place] Transcribe Date/Time: Jan 28 2025 8:24P Dictated by : MCKENZIE NO MD This examination was interpreted and the report reviewed and electronically signed by: MCKENZIE NO MD on Jan 28 2025 8:26PM EST [id number] Normal [facility] Pacemaker Checkon 01-25-2025 Pacemaker Check Normal [facility] Bacteria Ur Culton Bacteria identified Cx Nom (U) CULTURE, URINE: Mixed microbiota, including predominantly: ORGANISM ID: 1 >=100,000 CFU/ml Klebsiella pneumoniae ORGANISM ID: 1 (KLEBSIELLA PNEUMONIAE) -- ANTIBIOTIC INTERPRETATION ADONIS STATUS REFERENCE RANGE -- Ampicillin R F Cefazolin S <=4 F Susceptible 0-16 , Intermediate <0 or >16 , Resistant >16 For uncomplicated urinary tract infections, cefazolin results can be used to predict susceptibility or resistance to cephalexin. Ceftriaxone S <=1 F Susceptible <=1 , Intermediate >1 , Resistant >=4 Cefepime S <=1 F Susceptible <=2 , Susceptible-Dose Dependent >2 , Resistant >=16 Ertapenem S <=0.5 F Susceptible <=0.5 , Intermediate >.5 , Resistant >1 Meropenem S <=0.25 F Susceptible <=1 , Intermediate >1 , Resistant >2 Ampicillin/Sulbact S <=2 F Susceptible <=8 , Intermediate >8 , Resistant >16 Piperacillin/Tazobac S <=4 F Susceptible <16 , Susceptible-Dose Dependent >=16 , Resistant >=32 Gentamicin S <=1 F Susceptible <=2 , Intermediate >2 , Resistant >=8 Tobramycin S <=1 F Susceptible <4 , Intermediate >=4 , Resistant >=8 Trimeth sulfameth S <=20 F Susceptible <=40 , Resistant >40 Ciprofloxacin S <=0.25 F Susceptible <0.5 , Intermediate >=.5 , Resistant >=1 Nitrofurantoin S <=16 F Susceptible <=32 , Intermediate >32 , Resistant >64 Abnormal [facility] Comment on above: Performed By: #### 6 30-4 ####[facility] [id number] [place] [id number] [place] [facility] CNOVon 01-07-2025 CNOV Office Visit (INTMWS ) ELIZABETH PERSAUD ([id number]) 1945 F [place] Date Time Provider Department 01/07/25 10:20 AM OLDER, DIANNA BOWMAN During your visit today, we recorded the following information about you: Pulse Respiration Blood pressure Weight 78/minute 16/minute 136/78 65.3 kg Older, ANG Snow 01/07/2025 10:56 AM Signed CC: Patient presents with: Recheck: 4 week follow up HPI Elizabeth Persaud is a 79 year old female who presents today for follow up on depression and was found to have a UTI which was treated. Recording using Binpress software for draft documentation of the visit was discussed with the patient/authorized direct marketing representative; all questions welcomed and answered. Patient/authorized direct marketing representative agreed to proceed Possible UTI: - was treated with macrobid 4 weeks ago. Reports she took antibiotic as prescribed and symptoms resolved. - Elizabeth denies dysuria, malodorous or dark urine, abdominal pain, or fever. - Urine becomes clear after taking Lasix. Depression: - Noted improvement in depression symptoms, but still present. - Discontinued Wellbutrin last week due to increased fatigue and racing thoughts. - Elizabeth denies suicidal or homicidal ideation. - Appetite unchanged; trying to eat less for weight management. - Sleep: 10 hours per night. - Engaging in social activities, but struggles with motivation otherwise. CHF: - History of CHF and Afib which she had an ablation a few months back with pacemaker placement; currently stable. [facility] - No dyspnea, chest pressure, or palpitations. - Pacemaker in place; reports feeling tired. - Edema in lower extremities has resolved over the past 1.5 weeks. - Elizabeth denies cough or wheezing. - Received an injection last for hip pain; reports improved mobility. REVIEW OF SYSTEMS See HPI PAST MEDICAL [...] EGD 06/11/2022 EGD TRANSORAL BIOPSY SINGLE/MULTIPLE 02/08/2011 ESOPHAGOGASTRODUODENOS COPY TRANSORAL DIAGNOSTIC 10/06/2013 EGD ESOPHAGOGASTRODUODENOS COPY TRANSORAL DIAGNOSTIC 11/22/2015 EGD ESOPHAGOGASTRODUODENOS COPY TRANSORAL DIAGNOSTIC 02/28/2016 EGD EYE SURGERY HX HERNIA REPAIR HX LIG/TRNSXJ FLP TUBE ABDL/VAG APPR UNI/BI Tubal ligation NEUROPLASTY AND/TRANSPOS MEDIAN NRV CARPAL TUNNE 02/14/2012 Carpal tunnel decomp - right OOPHORECTOMY PARTIAL/TOTAL UNI/BI 07/17/2010 Oophorectomy - left Dr. Manuel Hoover - Dr. Alessio Welch PAST SURGICAL HISTORY OF NECK SURGERY, anterior [...] YRS/> REDUCIBLE 07/17/2010 Hernia repair, umbilical >5yr [facility] Dr Manuel Hoover SHX COSMETIC SURGERY SKIN BIOPSY HX ALLERGIES Cardizem [Diltiazem Hcl], Codeine, Entex [Phenylephrine-Guaifen esin], Etodolac, Meloxicam, Naproxen, Tape [Adhesive Tape (Rosins)], Trazodone, and Zantac [Ranitidine Hcl] MEDICATIONS omeprazole (PRILOSEC) 40 mg capsule Take 1 capsule by mouth once daily. fluticasone (FLONASE) 50 mcg/actuation nasal spray Use 2 Sprays in each nostril once daily. Rinse mouth after use. benzonatate (TESSALON PERLE) 100 mg capsule Take 1 capsule by mouth three times a day as needed. fluticasone-umeclidin- vilanter (TRELEGY ELLIPTA) 100-62.5-25 mcg inhalation powder Inhale 1 Puff as instructed once daily. sucralfate (CARAFATE) 100 mg/mL suspension Take 10 mL by mouth before meals and at bedti (more content not included)... Normal [facility] UA DIP, URINE (POC)on 2024 BILIRUBIN UA (POCT) Negative Negative [facility] CLARITY UA (POCT) Clear [facility] COLOR UA (POCT) Yellow [facility] GLUCOSE UA (POCT) 500 mg/dL Abnormal Negative [facility] Hemoglobin Ql (U) Trace-intact Abnormal Negative [facility] Interpretation and review of laboratory results Abnormal [facility] KETONE UA (POCT) Negative Negative mg/dL [facility] LEUKOCYTES UA (POCT) Trace Abnormal Negative [facility] NITRITE UA (POCT) Negative Negative [facility] PH UA (POCT) 6.0 4.5 - 8.0 [facility] Protein Ql (U) Negative Negative mg/dL [facility] SPECIFIC GRAVITY UA (POCT) 1.015 1.005 - 1.030 [facility] UROBILINOGEN UA (POCT) 0.2 Mulu l E.U./dL [facility] Location:[address], [place], [place], [address] [place] [address] POINT OF CARE [facility] Bacteria Ur Culton 5 Bacteria identified Cx Nom (U) ORGANISM ID: 1 >=100,000 CFU/ml Klebsiella pneumoniae ORGANISM ID: 1 (KLEBSIELLA PNEUMONIAE) -- ANTIBIOTIC INTERPRETATION ADONIS STATUS REFERENCE RANGE -- Ampicillin R F Cefazolin S <=4 F Susceptible 0-16 , Intermediate <0 or >16 , Resistant >16 For uncomplicated urinary tract infections, cefazolin results can be used to predict susceptibility or resistance to cephalexin. Ceftriaxone S <=1 F Susceptible <=1 , Intermediate >1 , Resistant >=4 Cefepime S <=1 F Susceptible <=2 , Susceptible-Dose Dependent >2 , Resistant >=16 Ertapenem S <=0.5 F Susceptible <=0.5 , Intermediate >.5 , Resistant >1 Meropenem S <=0.25 F Susceptible <=1 , Intermediate >1 , Resistant >2 Ampicillin/Sulbact S 4 F Susceptible <=8 , Intermediate >8 , Resistant >16 Piperacillin/Tazobac S <=4 F Susceptible <16 , Susceptible-Dose Dependent >=16 , Resistant >=32 Gentamicin S <=1 F Susceptible <=2 , Intermediate >2 , Resistant >=8 Tobramycin S <=1 F Susceptible <4 , Intermediate >=4 , Resistant >=8 Trimeth sulfameth S <=20 F Susceptible <=40 , Resistant >40 Ciprofloxacin S <=0.25 F Susceptible <0.5 , Intermediate >=.5 , Resistant >=1 Nitrofurantoin S <=16 F Susceptible <=32 , Intermediate >32 , Resistant >64 Abnormal [facility] Comment on above: Performed By: #### 6 30-4 ####[facility] LABCLIA [id number] [address] [place] CBC W Auto Differential pane l (Bld)on 12-10-2024 Basophils (Bld) [#/Vol] 0.03 10*3/uL [facility] Basophils/100 WBC (Bld) 0.4 % C [facility] Differential cell count method Nom (Bld) Auto [facility] Eosinophils (Bld) [#/Vol] 0.13 10*3/uL [facility] Eosinophils/100 WBC (Bld) 1.9 % [facility] Erythrocyte distribution width (RBC) [Ratio] 12.6 % 11.5 - 15.0 % [facility] Hematocrit (Bld) [Volume fraction] 40.5 % 36.0 - 46.0 % [facility] Hemoglobin (Bld) [Mass/Vol] 13.4 g/dL 11.5 - 15.5 g/dL [facility] Immature granulocytes (Bld) [#/Vol] [facility] Immature granulocytes/100 WBC (Bld) 0.1 % [facility] Lymphocytes (Bld) [#/Vol] 2.44 10*3/uL [facility] Lymphocytes/100 WBC (Bld) 35.7 % [facility] MCH (RBC) [Entitic mass] 30.2 pg 26.0 - 34.0 pg [facility] MCHC (RBC) [Mass/Vol] 33.1 g/dL 30.5 - 36.0 g/dL [facility] MCV (RBC) [Entitic vol] 91.2 fL 80.0 - 100.0 fL [facility] Monocytes (Bld) [#/Vol] 0.72 10*3/uL [facility] Monocytes/100 WBC (Bld) 10.5 % [facility] Neutrophils (Bld) [#/Vol] 3.51 10*3/uL [facility] Neutrophils/100 WBC (Bld) 51.4 % [facility] Nucleated RBC (Bld) [#/Vol] [facility] Nucleated RBC/100 WBC (Bld) [Ratio] 0 % /100 WBC [facility] Platelet mean volume (Bld) [Entitic vol] 10.1 fL 9.0 - 12.7 fL [facility] Platelets (Bld) [#/Vol] 283 10*3/uL [facility] RBC (Bld) [#/Vol] 4.44 10*6/uL 3.90 - 5.2 0 m/uL [facility] WBC (Bld) [#/Vol] 6.84 10*3/uL [facility] Basophils (Bld) [#/Vol] 0.03 10*3/uL Normal <0.11 [facility] Comment on above: Order Comment: Speci men Type: BLOOD SPECIMENOrdering Facility: [facility] Address: [address] [place] [address] Performed By: #### 5 7021-8 ####[facility] LABCLIA [id number] [address], [facility] [place] Basophils/100 WBC (Bld) 0.4 % Normal [facility] Comment on above: Order Comment: Speci men Type: BLOOD SPECIMENOrdering Facility: [facility] Address: [address] [place] [address] Performed By: #### 5 7021-8 ####[facility] LABCLIA [id number] [place] [address] [place] Differential cell count method Nom (Bld) Auto Normal [facility] Comment on above: Order Comment: Speci men Type: BLOOD SPECIMENOrdering Facility: [facility] Address: [address] [place] [address] Performed By: #### 5 7021-8 ####[facility] LABCLIA [id number] [address], [place] [address] [place] Eosinophils (Bld) [#/Vol] 0.13 10*3/uL Normal <0.46 [facility] Comment on above: Order Comment: Speci men Type: BLOOD SPECIMENOrdering Facility: [facility] Address: [address] [place] [address] Performed By: #### 5 7021-8 ####[facility] LABCLIA [id number] [place] [id number] [place] OF [facility] Eosinophils/100 WBC (Bld) 1.9 % Normal [facility] Comment on above: Order Comment: Speci men Type: BLOOD SPECIMENOrdering Facility: [facility] Address: [address] [place] [address] Performed By: #### 5 7021-8 ####[facility] LABCLIA [id number] [place] [id number] [place] Erythrocyte distribution width (RBC) [Ratio] 12.6 % Normal 11.5-15.0 [facility] Comment on above: Order Comment: Speci men Type: BLOOD SPECIMENOrdering Facility: [facility] Address: [address] [place] [address] Performed By: #### 5 7021-8 ####[facility] LABIA [id number] [place] [address] [place] Hematocrit (Bld) [Volume fraction] 40.5 % Normal 36.0-46.0 [facility] Comment on above: Order Comment: Speci men Type: BLOOD SPECIMENOrdering Facility: [facility] Address: [address] [place] [address] Performed By: #### 5 7021-8 ####[facility] LABIA [id number] [place] [address] [place] Hemoglobin (Bld) [Mass/Vol] 13.4 g/dL Normal 11.5-15.5 [facility] Comment on above: Order Comment: Speci men Type: BLOOD SPECIMENOrdering Facility: [facility] Address: [address] [place] [address] Performed By: #### 5 7021-8 ####[facility] LABIA [id number] [place] [address] [place] Immature granulocytes (Bld) [#/Vol] 10*3/uL Normal <0.10 [facility] Comment on above: Order Comment: Speci men Type: BLOOD SPECIMENOrdering Facility: [facility] Address: [address] [place] [address] Performed By: #### 5 7021-8 ####[facility] LABIA [id number] [address] [place] Immature granulocytes/100 WBC (Bld) 0.1 % Normal [facility] Comment on above: Order Comment: Speci men Type: BLOOD SPECIMENOrdering Facility: [facility] Address: [address] [place] [address] Performed By: #### 5 7021-8 ####[facility] LABCLIA [id number] [place] [address] [place] Lymphocytes (Bld) [#/Vol] 2.44 10*3/uL Normal 1.00-4.00 [facility] Comment on above: Order Comment: Speci men Type: BLOOD SPECIMENOrdering Facility: [facility] Address: [address] [place] [address] Performed By: #### 5 7021-8 ####[facility] LABCLIA [id number] [place] [address] [place] Lymphocytes/100 WBC (Bld) 35.7 % Normal [facility] Comment on above: Order Comment: Speci men Type: BLOOD SPECIMENOrdering Facility: [facility] Address: [address] [place] [address] Performed By: #### 5 7021-8 ####[facility] LABIA [id number] [place] [address] [place] MCH (RBC) [Entitic mass] 30.2 pg Normal 26.0-34.0 [facility] Comment on above: Order Comment: Speci men Type: BLOOD SPECIMENOrdering Facility: [facility] Address: [address] [place] [address] Performed By: #### 5 7021-8 ####[facility] LABCLIA [id number] [place] [address] [place] MCHC (RBC) [Mass/Vol] 33.1 g/dL Normal 30.5-36.0 [facility] Comment on above: Order Comment: Speci men Type: BLOOD SPECIMENOrdering Facility: [facility] Address: [address] [place] [address] Performed By: #### 5 7021-8 ####[facility] LABCLIA [id number] [place] [address] [place] MCV (RBC) [Entitic vol] 91.2 fL Normal 80.0-100.0 C [facility] Comment on above: Order Comment: Speci men Type: BLOOD SPECIMENOrdering Facility: [facility] Address: [address] [place] [address] Performed By: #### 5 7021-8 ####[facility] LABCLIA [id number] [place] [address] [place] Monocytes (Bld) [#/Vol] 0.72 10*3/uL Normal <0.87 [facility] Comment on above: Order Comment: Speci men Type: BLOOD SPECIMENOrdering Facility: [facility] Address: [address] [place] [address] Performed By: #### 5 7021-8 ####[facility] LABCLIA [id number] [place] [address] [place] Monocytes/100 WBC (Bld) 10.5 % Normal C [facility] Comment on above: Order Comment: Speci men Type: BLOOD SPECIMENOrdering Facility: [facility] Address: [address] [place] [address] Performed By: #### 5 7021-8 ####[facility] LABCLIA [id number] [place] [address] [place] Neutrophils (Bld) [#/Vol] 3.51 10*3/uL Normal 1.45-7.50 [facility] Comment on above: Order Comment: Speci men Type: BLOOD SPECIMENOrdering Facility: [facility] Address: [address] [place] [address] Performed By: #### 5 7021-8 ####[facility] LABCLIA [id number] [place] [address] [place] Neutrophils/100 WBC (Bld) 51.4 % Normal [facility] Comment on above: Order Comment: Speci men Type: BLOOD SPECIMENOrdering Facility: [facility] Address: [address] [place] [address] Performed By: #### 5 7021-8 ####[facility] LABCLIA [id number] [place] [address] [place] Nucleated RBC (Bld) [#/Vol] 10*3/uL Normal <0.01 [facility] Comment on above: Order Comment: Speci men Type: BLOOD SPECIMENOrdering Facility: [facility] Address: [address] [place] [address] Performed By: #### 5 7021-8 ####[facility] LABIA [id number] [place] [address] [place] Nucleated RBC/100 WBC (Bld) [Ratio] 0.0 /100 WBC Normal [facility] Comment on above: Order Comment: Speci men Type: BLOOD SPECIMENOrdering Facility: [facility] Address: [address] [place] [address] Performed By: #### 5 7021-8 ####[facility] LABIA [id number] [place] [address] [place] Platelet mean volume (Bld) [Entitic vol] 10.1 fL Normal 9.0-12.7 [facility] Comment on above: Order Comment: Speci men Type: BLOOD SPECIMENOrdering Facility: [facility] Address: [address] [place] [address] Performed By: #### 5 7021-8 ####[facility] LABCLIA [id number] [place] [id number] [place] Platelets (Bld) [#/Vol] 283 10*3/uL Normal 150-400 [facility] Comment on above: Order Comment: Speci men Type: BLOOD SPECIMENOrdering Facility: [facility] Address: [address] [place] [address] Performed By: #### 5 7021-8 ####[facility] LABCLIA [id number] [place] [address] [place] RBC (Bld) [#/Vol] 4.44 10*6/uL Normal 3.90-5.20 [facility] Comment on above: Order Comment: Speci men Type: BLOOD SPECIMENOrdering Facility: [facility] Address: [address] [place] [address] Performed By: #### 5 7021-8 ####[facility] LABIA [id number] [place] [address] [place] WBC (Bld) [#/Vol] 6.84 10*3/uL Normal 3.70-11.00 [facility] Comment on above: Order Comment: Speci men Type: BLOOD SPECIMENOrdering Facility: [facility] Address: [address] [place] [address] Performed By: #### 5 7021-8 ####[facility] LABIA [id number] [address] [place] CNOVon 12-10-2024 CNOV Office Visit (INTMWS ) ELIZABETH PERSAUD ([id number]) 1945 F [facility] Date Time Provider Department 12/10/24 9:00 AM OLDER, DIANNA INTMWS During your visit today, we recorded the following information about you: Pulse Respiration Blood pressure Weight Normal [facility] Cobalamin (Vitamin B12) [Mas s/Vol]on 12-10-2024 Interpretation and review of laboratory results Abnormal [facility] Comprehensive metabolic 2000 panelon 12-10-2024 Albumin [Mass/Vol] 4.1 g/dL 3.9 - 4.9 g/dL [facility] ALP [Catalytic activity/Vol] 83 U/L 34 - 123 U/L [facility] ALT [Catalytic activity/Vol] 20 U/L 7 - 38 U/L [facility] Anion gap [Moles/Vol] 17 mmol/L High 8 - 15 mmol/L [facility] AST [Catalytic activity/Vol] 22 U/L 13 - 35 U/L [facility] Bilirubin [Mass/Vol] 0.5 mg/dL 0.2 - 1 .3 mg/dL [facility] Calcium [Mass/Vol] 10.3 mg/dL High 8.5 - 10. 2 mg/dL [facility] Chloride [Moles/Vol] 100 mmol/L 98 - 10 7 mmol/L [facility] CO2 [Moles/Vol] 24 mmol/L 22 - 30 mmol/L [facility] Creatinine [Mass/Vol] 0.9 mg/dL 0.58 - 0.96 mg/dL [facility] GFR/1.73 sq M.predicted among non-blacks MDRD (S/P/Bld) [Vol rate/Area] 66 mL/min/{1.73_m2} - PINF [facility] Comment on above: Estimated Glomerular Filtration Rate (eGFR) is calculated using the 2020 CKD-EPI creatinine equation. This equation utilizes serum creatinine, sex, and age as parameters. The creatinine assay has traceable calibration to isotope dilution-mass spectrometry. Refer to KDIGO guidelines for clinical interpretation. In patients with unstable renal function, e.g. those with acute kidney injury, the eGFR may not accurately reflect actual GFR. Glucose [Mass/Vol] 95 mg/dL 74 - 99 mg/dL [facility] Comment on above: The [place] Diabete s Association (ADA) provides guidance for cutoff values [...] Standards of Medical Care in Diabetes 2016, [place] [employer]. Diabetes Care. 2016.39(Suppl 1). Interpretation and review of laboratory results Abnormal [facility] Potassium [Moles/Vol] 4 mmol/L 3.7 - 5.1 mmol/L [facility] Protein [Mass/Vol] 6.8 g/dL 6.3 - 8.0 g/dL [facility] Sodium [Moles/Vol] 141 mmol/L 136 - 144 mmol/L [facility] Urea nitrogen [Mass/Vol] 20 mg/dL 7 - 21 mg/dL [facility] Albumin [Mass/Vol] 4.1 g/dL Normal 3.9-4.9 [facility] Comment on above: Order Comment: Speci men Type: BLOOD SPECIMENOrdering Facility: [facility] Address: [address] [place] [address] Performed By: #### 2 4323-8, 3015-07, 2132-01 ####[facility] LABIA [id number] [place] [address] [place] ALP [Catalytic activity/Vol] 83 U/L Normal 34-123 [facility] Comment on above: Order Comment: Speci men Type: BLOOD SPECIMENOrdering Facility: [facility] Address: [address] [place] [address] Performed By: #### 2 4323-8, 3015-07, 2132-01 ####[facility] LABIA [id number] [place] [address] [place] ALT [Catalytic activity/Vol] 20 U/L Normal 7-38 [facility] Comment on above: Order Comment: Speci men Type: BLOOD SPECIMENOrdering Facility: [facility] Address: [address] [place] [address] Performed By: #### 2 4323-8, 3015-07, 2132-01 ####[facility] LABIA [id number] [address] [address] [place] Anion gap [Moles/Vol] 17 mmol/L High 8-15 [facility] Comment on above: Order Comment: Speci men Type: BLOOD SPECIMENOrdering Facility: [facility] Address: [address] [place], [place] [address] Performed By: #### 2 4323-8, 3, 2132-01 ####[facility] LABIA [id number] [place] [id number] [place] AST [Catalytic activity/Vol] 22 U/L Normal 13-35 [facility] Comment on above: Order Comment: Speci men Type: BLOOD SPECIMENOrdering Facility: [facility] Address: [address] [place] [address] Performed By: #### 2 4323-8, 3, 2132-01 ####[facility] LABIA [id number] [place] [address] [place] Bilirubin [Mass/Vol] 0.5 mg/dL Normal 0.2-1.[address] [facility] Comment on above: Order Comment: Speci men Type: BLOOD SPECIMENOrdering Facility: [facility] Address: [address] [place] [address] Performed By: #### 2 4323-8, 3015-07, 2132-01 ####[facility] LABIA [id number] [place] [address] [place] Calcium [Mass/Vol] 10.3 mg/dL High 8.5-10.2 [facility] Comment on above: Order Comment: Speci men Type: BLOOD SPECIMENOrdering Facility: [facility] Address: [address] [place] [address] Performed By: #### 2 4323-8, 3, 2132-01 ####[facility] LABIA [id number] [place] [id number] [place] Chloride [Moles/Vol] 100 mmol/L Normal 98-[address] [facility] Comment on above: Order Comment: Speci men Type: BLOOD SPECIMENOrdering Facility: [facility] Address: [address] [place] [address] Performed By: #### 2 4323-8, 3015-3, 2132-01 ####[facility] LABCLIA [id number] [address] [address] [place] CO2 [Moles/Vol] 24 mmol/L Normal 22-30 [facility] Comment on above: Order Comment: Speci men Type: BLOOD SPECIMENOrdering Facility: [facility] Address: [address] [place], [place] [address] Performed By: #### 2 4323-8, 3, 2132-01 ####[facility] LABIA [id number] [place] [id number] [place] Creatinine [Mass/Vol] 0.90 mg/dL Normal 0.58-0.96 [facility] Comment on above: Order Comment: Speci men Type: BLOOD SPECIMENOrdering Facility: [facility] Address: [address] [place], [place] [address] Performed By: #### 2 4323-8, 3015-07, 2132-01 ####[facility] LABIA [id number] [place] [id number] [place] eGFRcr SerPlBld CKD-EPI 2020 66 mL/min/1.73m??? Normal >=60 [facility] Comment on above: Order Comment: Speci men Type: BLOOD SPECIMENOrdering Facility: [facility] Address: [address] [place] [address] Result Comment: Natasha mated Glomerular Filtration Rate [...] reflect actual GFR. Performed By: #### 2 4323-8, 6-3, 2132-01 ####[facility] LABIA [id number] [address] [address] [place] Glucose [Mass/Vol] 95 mg/dL Normal 74-99 [facility] Comment on above: Order Comment: Speci men Type: BLOOD SPECIMENOrdering Facility: [facility] Address: [address] [place] [address] Result Comment: The [place] Diabetes Association (ADA) provides guidance for cutoff [...] Standards of Medical Care in Diabetes 2016, [place] [employer]. Diabetes Care. 2016.39(Suppl 1). Performed By: #### 2 4323-8, 3015-07, 2132-01 ####[facility] LABCLIA [id number] [place] [id number] [place] Potassium [Moles/Vol] 4.0 mmol/L Normal 3.7-5.1 [facility] Comment on above: Order Comment: Speci men Type: BLOOD SPECIMENOrdering Facility: [facility] Address: [address] [place] [address] Performed By: #### 2 4323-8, 3015-07, 2132-01 ####[facility] LABCLIA [id number] [address] [address] [place] Protein [Mass/Vol] 6.8 g/dL Normal 6.3-8.0 [facility] Comment on above: Order Comment: Speci men Type: BLOOD SPECIMENOrdering Facility: [facility] Address: [address] [place], [place] [address] Performed By: #### 2 4323-8, 3, 2132-01 ####[facility] LABCLIA [id number] [address] [address] [place] Sodium [Moles/Vol] 141 mmol/L Normal 136-144 [facility] Comment on above: Order Comment: Speci men Type: BLOOD SPECIMENOrdering Facility: [facility] Address: [address] [place], [place] [address] Performed By: #### 2 4323-8, 3015-3, 2132-01 ####[facility] LABCLIA [id number] [address] [address] [place] Urea nitrogen [Mass/Vol] 20 mg/dL Normal 7-21 [facility] Comment on above: Order Comment: Speci men Type: BLOOD SPECIMENOrdering Facility: [facility] Address: [address] [place], [place] [address] Performed By: #### 2 4323-8, 3, 2132-01 ####[facility] LABIA [id number] [address] [address] [place] No Panel Informationon 12-10 [facility] THYROID STIMULATING HORMONEo n 12-10-2024 TSH Qn 2.92 m[IU]/L [facility] TSH Qnon 12-10-2024 Interpretation and review of laboratory results Normal [facility] TSH SerPl-aCncon 12-10-2024 TSH Qn 2.920 m[IU]/L Normal 0.270-4.200 [facility] Comment on above: Order Comment: Speci men Type: BLOOD SPECIMENOrdering Facility: [facility] Address: [address] [place] [address] Performed By: #### 2 4323-8, 3, 2132-01 ####[facility] LABCLIA [id number] [address] [address] [place] UA DIP, URINE (POC)on 2024 BILIRUBIN UA (POCT) Negative Negative [facility] CLARITY UA (POCT) Clear [facility] COLOR UA (POCT) Yellow [facility] GLUCOSE UA (POCT) 500 mg/dL Abnormal Negative [facility] Hemoglobin Ql (U) Negative Negative [facility] Interpretation and review of laboratory results Abnormal [facility] KETONE UA (POCT) Negative Negative mg/dL [facility] LEUKOCYTES UA (POCT) Trace Abnormal Negative [facility] NITRITE UA (POCT) Negative Negative [facility] PH UA (POCT) 5.5 4.5 - 8.0 [facility] Protein Ql (U) Negative Negative mg/dL [facility] SPECIFIC GRAVITY UA (POCT) 1.015 1.005 - 1.030 [facility] UROBILINOGEN UA (POCT) 0.2 Mulu l E.U./dL [facility] Location:[address], [place], [place], [address] [place] [address] POINT OF CARE [facility] US LEG VEIN DVT UNL VAS LABo n 12-10-2024 LEG VEIN DVT UNL VAS LAB Non-Invasive Vascular Laboratory [facility] Lower Extremity Venous Duplex Unilateral - Right Date of service/time: 12/10/2024 11:32:25 AM Name: ELIZABETH PERSAUD Date of : 1945 Age: 79 years Gender: F Clinical Indication Right leg swelling. TECHNIQUE -------- A venous duplex ultrasound examination was performed, including grayscale imaging with compression maneuvers and color Doppler and spectral Doppler examination with augmentation maneuvers and response to respiration of the below mentioned veins. FINDINGS -------- RIGHT SIDE Distal external iliac vein Doppler: normal flow. Compression: normal. Common femoral vein Doppler: normal flow. Compression: normal. Femoral vein Doppler: normal flow. Compression: normal. Popliteal vein Doppler: normal flow. Compression: normal. Posterior tibial veins Compression: normal. Peroneal veins Compression: normal. Great saphenous vein Compression: normal. Small saphenous vein Compression: abnormal. Soleal vein Compression: normal. Gastrocnemius vein Compression: normal. LEFT SIDE Common femoral vein Doppler: normal flow. Compression: normal. IMPRESSION RIGHT SIDE - DEEP VEINS Negative for acute deep vein thrombosis. RIGHT SIDE - SUPERFICIAL VEINS Negative for superficial thrombophlebitis in the great saphenous vein. 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 LEFT SIDE - DEEP VEINS Spontaneous and respirophasic flow noted in the common femoral vein. Technologist: Danna Chapman RVT Ordering physician: DIANNA BALLARD Interpreting physician: Jesús Gan MD, SAMREEN Final CC [email or web address] [facility] Image : [id number] See Link below for Image Normal [facility] Lower extremity veinon Non-Invasive Vascular Laboratory [facility] Lower Extremity Venous Duplex Unilateral - Right Date of service/time: 12/10/2024 11:32:25 AM Name: ELIZABETH PERSAUD Date of : 1945 Age: 79 years Gender: F Clinical Indication Right leg swelling. TECHNIQUE -------- A venous duplex ultrasound examination was performed, including grayscale imaging with compression maneuvers and color Doppler and spectral Doppler examination with augmentation maneuvers and response to respiration of the below mentioned veins. FINDINGS -------- RIGHT SIDE Distal external iliac vein Doppler: normal flow. Compression: normal. Common femoral vein Doppler: normal flow. Compression: normal. Femoral vein Doppler: normal flow. Compression: normal. Popliteal vein Doppler: normal flow. Compression: normal. Posterior tibial veins Compression: normal. Peroneal veins Compression: normal. Great saphenous vein Compression: normal. Small saphenous vein Compression: abnormal. Soleal vein Compression: normal. Gastrocnemius vein Compression: normal. LEFT SIDE Common femoral vein Doppler: normal flow. Compression: normal. IMPRESSION RIGHT SIDE - DEEP VEINS Negative for acute deep vein thrombosis. RIGHT SIDE - SUPERFICIAL VEINS Negative for superficial thrombophlebitis in the great saphenous vein. 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 LEFT SIDE - DEEP VEINS Spontaneous and respirophasic flow noted in the common femoral vein. Technologist: Danna Chapman RVT Ordering physician: DIANNA BALLARD Interpreting physician: Jesús Gan MD, RPJUNIOR Final See Link below for Image [facility] Urinalysis complete panel (U )on 12-10-2024 Bacteria uL uL High - 941 uL [facility] Bilirubin Ql (U) Negative Negative [facility] Clarity (Unsp spec) Clear Clear [facility] Color (U) Yellow Yellow [facility] Epithelial cells LM.HPF (Urine sed) [#/Area] None Seen /HPF [facility] Glucose Test strip (U) [Mass/Vol] 3+ Abnormal Negative [facility] Hemoglobin Ql (U) Negative Negative [facility] Hyaline casts (Urine sed) [#/Area] 1-3 /LPF Abnormal 0 /LPF [facility] Interpretation and review of laboratory results Abnormal [facility] Ketones Ql (U) Negative Negative [facility] Leukocyte esterase Test strip Ql (U) 1+ Abnormal Negative [facility] Nitrite Ql (U) Positive Abnormal Negative [facility] pH (U) 6 [pH] 5.0 - 8.0 [facility] Protein (U) [Mass/Vol] Negative Negative Cl [facility] RBC LM.HPF (Urine sed) [#/Area] 0-2 /HPF 0-2 /HPF [facility] Specific gravity (U) [Rel density] 1.028 1.005 - 1.030 [facility] Urobilinogen Ql (U) 0.2 EU/dL 0.2-1.0 EU/dL [facility] WBC LM.HPF (Urine sed) [#/Area] 11-20 /HPF Abnormal 0-5 /HPF [facility] This test was developed and its performance characteristics determined by [facility]'s Manuel Clemons [facility] Pathology and Laboratory Medicine [place] ([facility]). It has not been cleared or approved by the FDA. -[facility] is regulated under CLIA as qualified to perform high-complexity testing. This test is used for clinical purposes. It should not be regarded as investigational or for research. [facility] BACTERIA UL >9821 High Negative [facility] Comment on above: Order Comment: Speci men Type: URINE SPECIMENOrdering Facility: [facility] Address: [address] [place] [address] Performed By: #### 2 4356-8 ####[facility] LABCLIA [id number] [address] [place] [address] [place] Bilirubin Ql (U) Negative Normal Negative [facility] Comment on above: Order Comment: Speci men Type: URINE SPECIMENOrdering Facility: [facility] Address: [address] [place] [address] Performed By: #### 2 4356-8 ####[facility] LABCLIA [id number] [address], [facility]95 [place] Clarity (Unsp spec) Clear Normal Clear [facility] Comment on above: Order Comment: Speci men Type: URINE SPECIMENOrdering Facility: [facility] Address: [address] [place] [address] Performed By: #### 2 4356-8 ####[facility] LABCLIA [id number] [place] [id number] [place] Color (U) Yellow Normal Yellow [facility] Comment on above: Order Comment: Speci men Type: URINE SPECIMENOrdering Facility: [facility] Address: [address] [place] [address] Performed By: #### 2 4356-8 ####[facility] LABCLIA [id number] [address], [facility]95 [place] Epithelial cells LM.HPF (Urine sed) [#/Area] None Seen Normal [facility] Comment on above: Order Comment: Speci men Type: URINE SPECIMENOrdering Facility: [facility] Address: [address] [place], [place] [address] Performed By: #### 2 4356-8 ####[facility] LABCLIA [id number] [place] [id number] [place] Glucose Test strip (U) [Mass/Vol] 3+ Abnormal Negative [facility] Comment on above: Order Comment: Speci men Type: URINE SPECIMENOrdering Facility: [facility] Address: [address] [place] [address] Performed By: #### 2 4356-8 ####[facility] LABCLIA [id number] [facility] [address], [place] [address] [place] Hemoglobin Ql (U) Negative Normal Negative [facility] Comment on above: Order Comment: Speci men Type: URINE SPECIMENOrdering Facility: [facility] Address: [address] [place] [address] Performed By: #### 2 4356-8 ####[facility] LABCLIA [id number] [place] [address] [place] Hyaline casts (Urine sed) [#/Area] 1-3 /LPF Abnormal 0 /LPF [facility] Comment on above: Order Comment: Speci men Type: URINE SPECIMENOrdering Facility: [facility] Address: [address] [place] [address] Performed By: #### 2 4356-8 ####[facility] LABCLIA [id number] [facility] [address], [place] [address] [place] Ketones Ql (U) Negative Normal Negative [facility] Comment on above: Order Comment: Speci men Type: URINE SPECIMENOrdering Facility: [facility] Address: [address] [place] [address] Performed By: #### 2 4356-8 ####[facility] LABCLIA [id number] [facility] [place] [id number] [place] Leukocyte esterase Test strip Ql (U) 1+ Abnormal Negative [facility] Comment on above: Order Comment: Speci men Type: URINE SPECIMENOrdering Facility: [facility] Address: [address] [place] [address] Performed By: #### 2 4356-8 ####[facility] LABCLIA [id number] [address], [place] [address] [place] Nitrite Ql (U) Positive Abnormal Negative [facility] Comment on above: Order Comment: Speci men Type: URINE SPECIMENOrdering Facility: [facility] Address: [address] [place] [address] Performed By: #### 2 4356-8 ####[facility] LABCLIA [id number] [place] [address] [place] pH (U) 6.0 [pH] Normal 5.0-8.0 [facility] Comment on above: Order Comment: Speci men Type: URINE SPECIMENOrdering Facility: [facility] Address: [address] [place] [address] Performed By: #### 2 4356-8 ####[facility] LABIA [id number] [place] [address] [place] Protein (U) [Mass/Vol] Negative Normal Negative [facility] Comment on above: Order Comment: Speci men Type: URINE SPECIMENOrdering Facility: [facility] Address: [address] [place] [address] Performed By: #### 2 4356-8 ####[facility] LABIA [id number] [place] [address] [place] RBC LM.HPF (Urine sed) [#/Area] 0-2 /HPF Normal 0-2 /HPF [facility] Comment on above: Order Comment: Speci men Type: URINE SPECIMENOrdering Facility: [facility] Address: [address] [place] [address] Performed By: #### 2 4356-8 ####[facility] LABIA [id number] [address], [facility]95 [place] Specific gravity (U) [Rel density] 1.028 Normal 1.005-1.030 [facility] Comment on above: Order Comment: Speci men Type: URINE SPECIMENOrdering Facility: [facility] Address: [address] [place] [address] Performed By: #### 2 4356-8 ####[facility] LABCLIA [id number] [place] [address] [place] Urobilinogen Ql (U) 0.2 EU/dL Normal 0.2-1.0 EU/dL [facility] Comment on above: Order Comment: Speci men Type: URINE SPECIMENOrdering Facility: [facility] Address: [address] [place] [address] Performed By: #### 2 4356-8 ####[facility] LABIA [id number] [place] [address] [place] WBC LM.HPF (Urine sed) [#/Area] 11-20 /HPF Abnormal 0-5 /HPF [facility] Comment on above: Order Comment: Speci men Type: URINE SPECIMENOrdering Facility: [facility] Address: [address] [place] [address] Performed By: #### 2 4356-8 ####[facility] LABIA [id number] [place] [address] [place] VITAMIN B12on 12-10-2024 Cobalamin (Vitamin B12) [Mass/Vol] 1523 pg/mL High 232 - 1245 pg/mL [facility] Vit B12 SerPl-mCncon 025 Cobalamin (Vitamin B12) [Mass/Vol] 1523 pg/mL High 232-1245 [facility] Comment on above: Order Comment: Speci men Type: BLOOD SPECIMENOrdering Facility: [facility] Address: [address] [place] [address] Performed By: #### 2 4323-8, 3016-3, 2132-9 ####[facility] LABCLIA [id number] [place] [address] [place] Pacemaker Checkon 07-09-2025 Pacemaker Check Normal [facility] Orthopedic Visit Reporton Orthopedic Visit Report Normal W [facility] Urinalysis complete panel (U )on 11-09-2024 Bacteria LM.HPF (Urine sed) [#/Area] Negative Normal Negative [facility] Comment on above: Order Comment: Speci men Type: URINE SPECIMENOrdering Facility: [facility] Address: [address] [place] [address] Performed By: #### 2 4356-8 ####[facility] LABCLIA [id number] [place] [address] [place] Bilirubin Ql (U) Negative Normal Negative [facility] Comment on above: Order Comment: Speci men Type: URINE SPECIMENOrdering Facility: [facility] Address: [address] [place] [address] Performed By: #### 2 4356-8 ####[facility] LABCLIA [id number] [place] [address] [place] Clarity (Unsp spec) Clear Normal Clear [facility] Comment on above: Order Comment: Speci men Type: URINE SPECIMENOrdering Facility: [facility] Address: [address] [place] [address] Performed By: #### 2 4356-8 ####[facility] LABCLIA [id number] [place] [address] [place] Color (U) Yellow Normal Yellow [facility] Comment on above: Order Comment: Speci men Type: URINE SPECIMENOrdering Facility: [facility] Address: [address] [place] [address] Performed By: #### 2 4356-8 ####[facility] LABCLIA [id number] [place] [id number] [place] Epithelial cells LM.HPF (Urine sed) [#/Area] None Seen Normal [facility] Comment on above: Order Comment: Speci men Type: URINE SPECIMENOrdering Facility: [facility] Address: [address] [place] [address] Performed By: #### 2 4356-8 ####[facility] LABCLIA [id number] [address], [place] [address] [place] Glucose Test strip (U) [Mass/Vol] 3+ Abnormal Negative [facility] Comment on above: Order Comment: Speci men Type: URINE SPECIMENOrdering Facility: [facility] Address: [address] [place] [address] Performed By: #### 2 4356-8 ####[facility] LABCLIA [id number] [address], [place] [address] [place] Hemoglobin Ql (U) Negative Normal Negative [facility] Comment on above: Order Comment: Speci men Type: URINE SPECIMENOrdering Facility: [facility] Address: [address] [place] [address] Performed By: #### 2 4356-8 ####[facility] LABCLIA [id number] [address], [place] [address] [place] Hyaline casts (Urine sed) [#/Area] 0 /[LPF] Normal 0 /LPF [facility] Comment on above: Order Comment: Speci men Type: URINE SPECIMENOrdering Facility: [facility] Address: [address] [place] [address] Performed By: #### 2 4356-8 ####[facility] LABCLIA [id number] [address], [facility]95 [place] Ketones Ql (U) Negative Normal Negative [facility] Comment on above: Order Comment: Speci men Type: URINE SPECIMENOrdering Facility: [facility] Address: [address] [place] [address] Performed By: #### 2 4356-8 ####[facility] LABCLIA [id number] [address], [facility]95 [place] Leukocyte esterase Test strip Ql (U) Trace Abnormal Negative [facility] Comment on above: Order Comment: Speci men Type: URINE SPECIMENOrdering Facility: [facility] Address: [address] [place] [address] Performed By: #### 2 4356-8 ####[facility] LABCLIA [id number] [address], [place] [facility] [place] Nitrite Ql (U) Negative Normal Negative [facility] Comment on above: Order Comment: Speci men Type: URINE SPECIMENOrdering Facility: [facility] Address: [address] [place] [address] Performed By: #### 2 4356-8 ####[facility] LABCLIA [id number] [address], [place] [address] [place] pH (U) 6.0 [pH] Normal <8.5 [facility] Comment on above: Order Comment: Speci men Type: URINE SPECIMENOrdering Facility: [facility] Address: [address] [place] [address] Performed By: #### 2 4356-8 ####[facility] LABCLIA [id number] [address], [place] [address] [place] Protein (U) [Mass/Vol] Negative Normal Negative [facility] Comment on above: Order Comment: Speci men Type: URINE SPECIMENOrdering Facility: [facility] Address: [address] [place] [address] Performed By: #### 2 4356-8 ####[facility] LABCLIA [id number] [facility] [address], [facility]95 [place] RBC LM.HPF (Urine sed) [#/Area] 0-2 /HPF Normal 0-2 /HPF [facility] Comment on above: Order Comment: Speci men Type: URINE SPECIMENOrdering Facility: [facility] Address: [address] [place] [address] Performed By: #### 2 4356-8 ####[facility] LABCLIA [id number] [place] [address] [place] Specific gravity (U) [Rel density] 1.030 Normal 1.005-1.030 [facility] Comment on above: Order Comment: Speci men Type: URINE SPECIMENOrdering Facility: [facility] Address: [address] [place] [address] Performed By: #### 2 4356-8 ####[facility] LABCLIA [id number] [place] [address] [place] Urobilinogen Ql (U) 0.2 EU/dL Normal 0.2-1.0 EU/dL [facility] Comment on above: Order Comment: Speci men Type: URINE SPECIMENOrdering Facility: [facility] Address: [address] [place] [address] Performed By: #### 2 4356-8 ####[facility] LABCLIA [id number] [place] [address] [place] WBC LM.HPF (Urine sed) [#/Area] 0-5 /HPF Normal 0-5 /HPF [facility] Comment on above: Order Comment: Speci men Type: URINE SPECIMENOrdering Facility: [facility] Address: [address] [place] [address] Performed By: #### 2 4356-8 ####[facility] LABIA [id number] [place] [address] [place] MR/POSTOP.ANEon 10-25-2024 MR/POSTOP.ANE Normal [facility] MR/BHEFJURI2xy 10-25-2024 MR/POSTOPAN2 Normal [facility] Operative Reporton Operative Report Normal [facility] CNOVon 10-22-2024 CNOV Office Visit (INTMWS ) ELIZABETH PERSAUD ([id number]) 1945 F [place] Date Time Provider Department 10/22/24 8:20 AM DIANNA BALLARD During your visit today, we recorded the following information about you: Temperature Pulse Respiration Blood pressure 97.1 degrees 76/minute 16/minute 128/84 Weight 62.6 kg Dianna Ballard APRN.[facility] 10/22/2024 10:38 AM Signed CC: Patient presents with: Recheck: Hospital follow up HPI Elizabeth Persaud is a 79 year old female who presents today for hospital follow up. Recording using [employer] software for draft documentation of the visit was discussed with the patient/authorized direct marketing representative; all questions welcomed and answered. Patient/authorized direct marketing representative agreed to proceed Atrial Fibrillation: - [...] Concerns about Fitbit affecting pacemaker; has messaged marker shipments for clarification. - denies chest pain, palpitations, [...] EGD 06/11/2022 EGD TRANSORAL BIOPSY SINGLE/MULTIPLE 02/08/2011 ESOPHAGOGASTRODUODENOS COPY TRANSORAL DIAGNOSTIC 10/06/2013 EGD ESOPHAGOGASTRODUODENOS COPY TRANSORAL DIAGNOSTIC 11/22/2015 EGD ESOPHAGOGASTRODUODENOS COPY TRANSORAL DIAGNOSTIC 02/28/2016 EGD EYE SURGERY HX HERNIA REPAIR HX LIG/TRNSXJ FLP TUBE ABDL/VAG APPR UNI/BI Tubal ligation NEUROPLASTY AND/TRANSPOS MEDIAN NRV CARPAL TUNNE 02/14/2012 Carpal tunnel decomp - right OOPHORECTOMY PARTIAL/TOTAL UNI/BI 07/17/2010 Oophorectomy - left Dr. Manuel Hoover - Dr. Alessio Welch PAST SURGICAL HISTORY OF NECK SURGERY, anterior [...] YRS/> REDUCIBLE 07/17/2010 Hernia repair, umbilical >5yr [facility] Dr Manuel Hoover SHX COSMETIC SURGERY SKIN BIOPSY HX ALLERGIES Cardizem [Diltiazem Hcl], Codeine, Entex [Phenylephrine-Guaifen esin], Etodolac, Meloxicam, Naproxen, Tape [Adhesive Tape (Rosins)], Trazodone, and Zantac [Ranitidine Hcl] MEDICATIONS nystatin (MYCOSTATIN) 100,000 unit/mL suspension Take 4 mL by mouth fou (more content not included)... Normal [facility] MR/PAT.ANEon 10-22-2024 MR/PAT.ANE Normal [facility] Basic metabolic 2000 panelon 10-18-2024 Anion gap [Moles/Vol] 15 mmol/L Normal 8-15 [facility] Comment on above: Order Comment: Speci men Type: BLOOD SPECIMENOrdering Facility: [facility] Address: [address] [place] [address] Performed By: #### 1 9123-9, 64075-1 ####[facility] LABCLIA [id number] [place] [address] [place] Calcium [Mass/Vol] 9.7 mg/dL Normal 8.5-10.2 [facility] Comment on above: Order Comment: Speci men Type: BLOOD SPECIMENOrdering Facility: [facility] Address: [address] [place] [address] Performed By: #### 1 9123-9, 89817-5 ####[facility] LABIA [id number] [place] [address] [place] Chloride [Moles/Vol] 100 mmol/L Normal 98-[address] [facility] Comment on above: Order Comment: Speci men Type: BLOOD SPECIMENOrdering Facility: [facility] Address: [address] [place] [address] Performed By: #### 1 9123-9, 84413-4 ####[facility] LABCLIA [id number] [place] [address] [place] CO2 [Moles/Vol] 27 mmol/L Normal 22-30 [facility] Comment on above: Order Comment: Speci men Type: BLOOD SPECIMENOrdering Facility: [facility] Address: [address] [place], [place] [address] Performed By: #### 1 9123-9, ####[facility] LABIA [id number] [address] [address] [place] Creatinine [Mass/Vol] 1.00 mg/dL High 0.58-0.96 [facility] Comment on above: Order Comment: Speci men Type: BLOOD SPECIMENOrdering Facility: [facility] Address: [address] [place] [address] Performed By: #### 1 91239, 43909-0 ####[facility] [id number] [place] [address] [place] Creatinine and Glomerular filtration rate.predicted panel (S/P/Bld) 58 mL/min/1.73m??? Low >=60 [facility] Comment on above: Order Comment: Speci men Type: BLOOD SPECIMENOrdering Facility: [facility] Address: [address] [place] [address] Result Comment: Natasha mated Glomerular Filtration Rate [...] accurately reflect actual GFR. Performed By: #### 1 9123-9, ####[facility] LABIA [id number] [address] [address] [place] Glucose [Mass/Vol] 104 mg/dL High 74-99 [facility] Comment on above: Order Comment: Libbyi men Type: BLOOD SPECIMENOrdering Facility: [facility] Address: [address] [place], [place] [address] Result Comment: The [place] Diabetes Association (ADA) provides guidance for cutoff [...] Standards of Medical Care in Diabetes 2016, [place] [employer]. Diabetes Care. 2016.39(Suppl 1). Performed By: #### 1 9123-9, 71308-5 ####[facility] LABCLIA [id number] [place] [address] [place] Potassium [Moles/Vol] 4.0 mmol/L Normal 3.7-5.1 [facility] Comment on above: Order Comment: Speci men Type: BLOOD SPECIMENOrdering Facility: [facility] Address: [address] [place] [address] Performed By: #### 1 91239, 59382-5 ####[facility] LABCLIA [id number] [place] [id number] [place] Sodium [Moles/Vol] 142 mmol/L Normal 136-144 [facility] Comment on above: Order Comment: Speci men Type: BLOOD SPECIMENOrdering Facility: [facility] Address: [address] [place] [address] Performed By: #### 1 91239, 34413-6 ####[facility] LABCLIA [id number] [address] [address] [place] Urea nitrogen [Mass/Vol] 22 mg/dL High 7-21 [facility] Comment on above: Order Comment: Speci men Type: BLOOD SPECIMENOrdering Facility: [facility] Address: [address] [place] [address] Performed By: #### 1 91239, 21527-3 ####[facility] LABCLIA [id number] [place] [address] [place] CBC panel Auto (Bld)on 10-18 Erythrocyte distribution width (RBC) [Ratio] 13.0 % Normal 11.5-15.0 [facility] Comment on above: Order Comment: Speci men Type: BLOOD SPECIMENOrdering Facility: [facility] Address: [address] [place] [address] Performed By: #### 5 8410-2 ####[facility] [id number] [place] [address] [place] Hematocrit (Bld) [Volume fraction] 40.4 % Normal 36.0-46.0 [facility] Comment on above: Order Comment: Speci men Type: BLOOD SPECIMENOrdering Facility: [facility] Address: [address] [place] [address] Performed By: #### 5 8410-2 ####[facility] [id number] [address] [place] Hemoglobin (Bld) [Mass/Vol] 13.5 g/dL Normal 11.5-15.5 [facility] Comment on above: Order Comment: Speci men Type: BLOOD SPECIMENOrdering Facility: [facility] Address: [address] [place] [address] Performed By: #### 5 8410-2 ####[facility] [id number] [place] [address] [place] MCH (RBC) [Entitic mass] 31.3 pg Normal 26.0-34.0 [facility] Comment on above: Order Comment: Speci men Type: BLOOD SPECIMENOrdering Facility: [facility] Address: [address] [place] [address] Performed By: #### 5 8410-2 ####[facility] [id number] [place] [address] [place] MCHC (RBC) [Mass/Vol] 33.4 g/dL Normal 30.5-36.0 [facility] Comment on above: Order Comment: Speci men Type: BLOOD SPECIMENOrdering Facility: [facility] Address: [address] [place] [address] Performed By: #### 5 8410-2 ####[facility] LABIA [id number] [place] [address] [place] MCV (RBC) [Entitic vol] 93.7 fL Normal 80.0-100.0 C [facility] Comment on above: Order Comment: Speci men Type: BLOOD SPECIMENOrdering Facility: [facility] Address: [address] [place] [address] Performed By: #### 5 8410-2 ####[facility] LABIA [id number] [place] [address] [place] Nucleated RBC (Bld) [#/Vol] 10*3/uL Normal <0.01 [facility] Comment on above: Order Comment: Speci men Type: BLOOD SPECIMENOrdering Facility: [facility] Address: [address] [place] [address] Performed By: #### 5 8410-2 ####[facility] LABIA [id number] [place] [address] [place] Platelet mean volume (Bld) [Entitic vol] 10.2 fL Normal 9.0-12.7 [facility] Comment on above: Order Comment: Speci men Type: BLOOD SPECIMENOrdering Facility: [facility] Address: [address] [place] [address] Performed By: #### 5 8410-2 ####[facility] LABIA [id number] [place] [address] [place] Platelets (Bld) [#/Vol] 338 10*3/uL Normal 150-400 [facility] Comment on above: Order Comment: Speci men Type: BLOOD SPECIMENOrdering Facility: [facility] Address: [address] [place] [address] Performed By: #### 5 8410-2 ####[facility] LABIA [id number] [place] [address] [place] RBC (Bld) [#/Vol] 4.31 10*6/uL Normal 3.90-5.20 [facility] Comment on above: Order Comment: Speci men Type: BLOOD SPECIMENOrdering Facility: [facility] Address: [address] [place] [address] Performed By: #### 5 8410-2 ####[facility] [id number] [place] [address] [place] WBC (Bld) [#/Vol] 11.53 10*3/uL High 3.70-11.[address] [facility] Comment on above: Order Comment: Speci men Type: BLOOD SPECIMENOrdering Facility: [facility] Address: [address] [place] [address] Performed By: #### 5 8410-2 ####[facility] [id number] [place] [id number] [place] Magnesium SerPl-mCncon 10-18 Magnesium [Mass/Vol] 2.0 mg/dL Normal 1.7-2.[address] [facility] Comment on above: Order Comment: Speci men Type: BLOOD SPECIMENOrdering Facility: [facility] Address: [address] [place] [address] Performed By: #### 1 9123-9, 68523-6 ####[facility] [id number] [place] [id number] [place] Orthopedic Visit Reporton Orthopedic Visit Report Normal W [facility] Pacemaker Checkon 10-14-2024 Pacemaker Check Normal [facility] CARDIAC RHYTHMon 10-08-2024 [facility] CBC AND ELECTRONIC DIFFon Basophils (Bld) [#/Vol] K/uL 0.00 - 0.15 K/uL [facility] Basophils/100 WBC (Bld) 0.3 % O [facility] Differential cell count method Nom (Bld) Electronic Differential [facility] Eosinophils (Bld) [#/Vol] 0.13 10*3/uL 0.00 - 0.42 K/uL [facility] Eosinophils/100 WBC (Bld) 1.3 % [facility] Erythrocyte distribution width (RBC) [Ratio] 13.2 % 10.8 - 14.9 % [facility] Hematocrit (Bld) [Volume fraction] 41.5 % 34.9 - 44.3 % [facility] Hemoglobin (Bld) [Mass/Vol] 13.5 g/dL 11.4 - 15.2 g/dL [facility] Immature granulocytes (Bld) [#/Vol] 0.05 10*3/uL NINF - 0.08 K/uL [facility] Immature granulocytes/100 WBC (Bld) 0.5 % [facility] Lymphocytes (Bld) [#/Vol] 2.52 10*3/uL 1.16 - 3.51 K/uL [facility] Lymphocytes/100 WBC (Bld) 25.1 % [facility] MCH (RBC) [Entitic mass] 31.2 pg 25.9 - 33.9 pg [facility] MCHC (RBC) [Mass/Vol] 32.5 g/dL 31.4 - 35.9 g/dL [facility] MCV (RBC) [Entitic vol] 95.8 fL 79.6 - 97.7 fL [facility] Monocytes (Bld) [#/Vol] 0.74 10*3/uL 0.22 - 0.87 K/uL [facility] Monocytes/100 WBC (Bld) 7.4 % [facility] Neutrophils (Bld) [#/Vol] 6.58 10*3/uL 1.64 - 7.28 K/uL [facility] Nucleated RBC/100 WBC (Bld) [Ratio] 0 % NINF [facility] Platelet mean volume (Bld) [Entitic vol] 10 fL 8.5 - 12.2 fL [facility] Platelets (Bld) [#/Vol] 231 10*3/uL 150 - 393 K/uL [facility] RBC (Bld) [#/Vol] 4.33 10*6/uL [facility] Segmented neutrophils/100 WBC (Bld) 65.4 % [facility] WBC (Bld) [#/Vol] 10.05 10*3/uL 3.99 - 11.19 K/uL [facility] Abs Baso Auto < Normal 0.00-0.15 [facility] Comment on above: Performed By: #### L [id number] #### [facility] (DEFAULT) [address] [place] [address] Basophils/100 WBC (Bld) 0.3 % Normal O [facility] Comment on above: Performed By: #### L AB980 #### [facility] (DEFAULT) [address] [place] [address] DIFF STATUS Electronic Differential Normal [facility] Comment on above: Performed By: #### L AB980 #### [facility] (DEFAULT) [address] [place] [address] Eosinophils (Bld) [#/Vol] 0.13 10*3/uL Normal 0.00-0.42 [facility] Comment on above: Performed By: #### L AB980 #### [facility] (DEFAULT) [address] [place] [address] Eosinophils/100 WBC (Bld) 1.3 % Normal [facility] Comment on above: Performed By: #### L AB980 #### [facility] (DEFAULT) [address] [place] [address] Hematocrit (Bld) [Volume fraction] 41.5 % Normal 34.9-44.3 [facility] Comment on above: Performed By: #### L AB980 #### [facility] (DEFAULT) [address] [address] Hemoglobin (Bld) [Mass/Vol] 13.5 g/dL Normal 11.4-15.2 [facility] Comment on above: Performed By: #### L AB980 #### [facility] (DEFAULT) [address] [place] [address] Immature Grans % 0.5 % Normal [facility] Comment on above: Performed By: #### L [id number] #### [facility] (DEFAULT) [address] [address] Immature Grans Absolute 0.05 K/uL Normal <=0.08 [facility] Comment on above: Performed By: #### L AB980 #### [facility] (DEFAULT) [address] [address] Lymphocytes (Bld) [#/Vol] 2.52 10*3/uL Normal 1.16-3.51 [facility] Comment on above: Performed By: #### L AB980 #### [facility] (DEFAULT) [address] [address] Lymphocytes/100 WBC (Bld) 25.1 % Normal [facility] Comment on above: Performed By: #### L AB980 #### [facility] (DEFAULT) [address] [address] MCV (RBC) [Entitic vol] 95.8 fL Normal 79.6-97.7 [facility] Comment on above: Performed By: #### L AB980 #### [facility] (DEFAULT) [address] [address] Mean Cell Hgb 31.2 pg Normal 25.9-33.9 [facility] Comment on above: Performed By: #### L AB980 #### [facility] (DEFAULT) [address] [address] Mean Cell Hgb Conc 32.5 g/dL Normal 31.4-35.9 [facility] Comment on above: Performed By: #### L AB980 #### [facility] (DEFAULT) [address] [place] [address] Monocytes (Bld) [#/Vol] 0.74 10*3/uL Normal 0.22-0.87 [facility] Comment on above: Performed By: #### L AB980 #### [facility] (DEFAULT) [address] [place] [address] Monocytes/100 WBC (Bld) 7.4 % Normal O [facility] Comment on above: Performed By: #### L [id number] #### [facility] (DEFAULT) [address] [address] Nucleated RBC 0.0 /100 WBC Normal <=0.2 [facility] Comment on above: Performed By: #### L [id number] #### [facility] (DEFAULT) [address] [address] Platelet mean volume (Bld) [Entitic vol] 10.0 fL Normal 8.5-12.2 [facility] Comment on above: Performed By: #### L [id number] #### [facility] (DEFAULT) [address] [address] Platelets (Bld) [#/Vol] 231 10*3/uL Normal 150-393 [facility] Comment on above: Performed By: #### L AB980 #### [facility] (DEFAULT) [address] [address] RBC (Bld) [#/Vol] 4.33 10*6/uL Normal 3.91-5.04 [facility] Comment on above: Performed By: #### L AB980 #### [facility] (DEFAULT) [address] [place] [address] RBC Distribution 13.2 % Normal 10.8-14.9 [facility] Comment on above: Performed By: #### L AB980 #### [facility] (DEFAULT) [address] [place] [address] Segs + Bands Auto 65.4 % Normal [facility] Comment on above: Performed By: #### L AB980 #### [facility] (DEFAULT) [address] [place] [address] Segs + Bands,Absolute Auto 6.58 K/uL Normal 1.64-7.28 [facility] Comment on above: Performed By: #### L [id number] #### [facility] (DEFAULT) [address] [place] [address] WBC (Bld) [#/Vol] 10.05 10*3/uL Normal 3.99-11.19 [facility] Comment on above: Performed By: #### L [id number] #### [facility] (DEFAULT) [address] [place] [address] CHEM 6 (LYTES, BUN CREA)on 0 10-08-2024 Anion gap [Moles/Vol] 14 mmol/L 7 - 17 mmol/L [facility] Chloride [Moles/Vol] 102 mmol/L 98 - 10 8 mmol/L [facility] CO2 [Moles/Vol] 28 mmol/L 21 - 31 mmol/L [facility] Creatinine [Mass/Vol] 0.85 mg/dL 0.50 - 1.20 mg/dL [facility] eGFR, CKD-EPI, Female 73 - PINF [facility] Comment on above: Reported eGFR is bas ed on the CKD-EPI 2020 equation using creatinine, age, and sex. Interpretation and review of laboratory results Abnormal [facility] Potassium [Moles/Vol] 4.2 mmol/L 3.5 - 5.0 mmol/L [facility] Sodium [Moles/Vol] 140 mmol/L 135 - 145 mmol/L [facility] Urea nitrogen [Mass/Vol] 34 mg/dL High 7 - 25 mg/dL [facility] Urea nitrogen/Creatinine [Mass ratio] 40 mg/mg [facility] Anion gap [Moles/Vol] 14 mmol/L Normal 7-17 [facility] Comment on above: Performed By: #### P TT #### [facility] (DEFAULT) [address] [place] [address] Chloride [Moles/Vol] 102 mmol/L Normal 98-108 [facility] Comment on above: Performed By: #### P TT #### [facility] (DEFAULT) [address] [place] [address] CO2 [Moles/Vol] 28 mmol/L Normal 21-31 [facility] Comment on above: Performed By: #### P TT #### [facility] (DEFAULT) [address] [place] [address] Creatinine [Mass/Vol] 0.85 mg/dL Normal 0.50-1.20 [facility] Comment on above: Performed By: #### P TT #### [facility] (DEFAULT) [address] [place] [address] GFR/1.73 sq M.predicted among non-blacks MDRD (S/P/Bld) [Vol rate/Area] 71 mL/min/{1.73_m2} Normal >=60 [facility] Comment on above: Result Comment: Repo rted eGFR is based on the CKD-EPI 2020 equation using creatinine, age, and sex. Performed By: #### P TT #### [facility] (DEFAULT) [address] [place] [address] Potassium [Moles/Vol] 4.2 mmol/L Normal 3.5-5.0 [facility] Comment on above: Performed By: #### P TT #### [facility] (DEFAULT) [address] [place] [address] Sodium [Moles/Vol] 140 mmol/L Normal 135-145 [facility] Comment on above: Performed By: #### P TT #### [facility] (DEFAULT) [address] [place] [address] Urea nitrogen [Mass/Vol] 34 mg/dL High 12-03 [facility] Comment on above: Performed By: #### P TT #### [facility] (DEFAULT) [address] [place] [address] Urea nitrogen/Creatinine [Mass ratio] 40 mg/mg Normal [facility] Comment on above: Performed By: #### P TT #### [facility] (DEFAULT) [address] [place] [address] DEVICE EVALUATIONon 10-09-19 Radiology Study observation (narrative) [facility] EP PROCEDURE - EPS/ABLATION/ DEVICEon 10-08-2024 EP [...] EPS/Ablation/Device Ordering Physician: ANUEL CORTES Order #: [id number] Study Date: 10/07/2024 Patient Information Name MRN Description Elizabeth Persaud [id number] 79 y.o. female Physicians Panel Physicians Referring Physician Case Authorizing Physician Landon Adhikari MD (Primary) Erlinda Casey, RADIATOR CORE TESTER-[employer]OLT [employer]ORTER Anuel Cortes MD Procedures Pacemaker Generator Implant [...] the usual sterile manner. Site prepped by Asha Schulz RN. Device Technique Generator pocket made. [...] during energy delivery. Implants Pacemaker Pacemaker 7.4mm Calvin Xt Sr Ti Poly Kitty 50.8x42.6mm Crd 22.5 - [id number] - Implanted Inventory item: PACEMAKER 7.4MM JOHN XT SR TI POLY KITTY 50.8X42.6MM CRD 22.5 Model/Cat number: [id number] Serial number: [id number] Blood Donor Recruiter: [employer] Implanted Date: 10/07/2024 Initial Device: Yes Pocket Location: Pre-pectoral As of 10/07/2024 Status: Implanted Lead Securement: 1 set screw torqued Mode: VVIR Lower Rate: 90 Upper Rat (more content not included)... Normal [facility] Electrophysiology studyon Body surface area Derived from formula 1.61 m2 [facility] Addendum by Landon Adhikari MD on 10/08/2024 9:22 AM EDT Baseline [...] bpm after AVN ablation, Follow-up device clinic. [facility] No Panel Informationon 10-08 [facility] CBC AND ELECTRONIC DIFFon Basophils (Bld) [#/Vol] K/uL 0.00 - 0.15 K/uL [facility] Basophils/100 WBC (Bld) 0.3 % [facility] Differential cell count method Nom (Bld) Electronic Differential [facility] Eosinophils (Bld) [#/Vol] 0.12 10*3/uL 0.00 - 0.42 K/uL [facility] Eosinophils/100 WBC (Bld) 1.1 % [facility] Erythrocyte distribution width (RBC) [Ratio] 13.4 % 10.8 - 14.9 % [facility] Hematocrit (Bld) [Volume fraction] 39.7 % 34.9 - 44.3 % [facility] Hemoglobin (Bld) [Mass/Vol] 12.8 g/dL 11.4 - 15.2 g/dL [facility] Immature granulocytes (Bld) [#/Vol] 0.09 10*3/uL High NINF - 0.08 K/uL [facility] Immature granulocytes/100 WBC (Bld) 0.8 % [facility] Interpretation and review of laboratory results Abnormal [facility] Lymphocytes (Bld) [#/Vol] 3.52 10*3/uL High 1.16 - 3.51 K/uL [facility] [facility] Lymphocytes/100 WBC (Bld) 31 % [facility] MCH (RBC) [Entitic mass] 30.8 pg 25.9 - 33.9 pg [facility] MCHC (RBC) [Mass/Vol] 32.2 g/dL 31.4 - 35.9 g/dL [facility] MCV (RBC) [Entitic vol] 95.7 fL 79.6 - 97.7 fL [facility] Monocytes (Bld) [#/Vol] 0.94 10*3/uL High 0.22 - 0.87 K/uL [facility] Monocytes/100 WBC (Bld) 8.3 % O [facility] Neutrophils (Bld) [#/Vol] 6.65 10*3/uL 1.64 - 7.28 K/uL [facility] Nucleated RBC/100 WBC (Bld) [Ratio] 0 % NINF [facility] Platelet mean volume (Bld) [Entitic vol] 10.2 fL 8.5 - 12.2 fL [facility] Platelets (Bld) [#/Vol] 241 10*3/uL 150 - 393 K/uL [facility] RBC (Bld) [#/Vol] 4.15 10*6/uL [facility] Segmented neutrophils/100 WBC (Bld) 58.5 % [facility] WBC (Bld) [#/Vol] 11.35 10*3/uL High 3.99 - 11.19 K/uL [facility] Abs Baso Auto < Normal 0.00-0.15 [facility] Comment on above: Performed By: #### L [id number] #### [facility] (DEFAULT) [address] [place] [address] 55668 Basophils/100 WBC (Bld) 0.3 % Normal [facility] Comment on above: Performed By: #### L [id number] #### [facility] (DEFAULT) [address] [place] [address] 24982 DIFF STATUS Electronic Differential Normal [facility] Comment on above: Performed By: #### L [id number] #### [facility] (DEFAULT) [address] [place] [address] 89843 Eosinophils (Bld) [#/Vol] 0.12 10*3/uL Normal 0.00-0.42 [facility] Comment on above: Performed By: #### L [id number] #### [facility] (DEFAULT) [address] [place] [address] 70751 Eosinophils/100 WBC (Bld) 1.1 % Normal [facility] Comment on above: Performed By: #### L [id number] #### [facility] (DEFAULT) [address] [place] [address] 51842 Hematocrit (Bld) [Volume fraction] 39.7 % Normal 34.9-44.3 [facility] Comment on above: Performed By: #### L [id number] #### [facility] (DEFAULT) [address] [place] [address] 97004 Hemoglobin (Bld) [Mass/Vol] 12.8 g/dL Normal 11.4-15.2 [facility] Comment on above: Performed By: #### L [id number] #### [facility] (DEFAULT) [address] [place] [address] 64090 Immature Grans % 0.8 % Normal [facility] Comment on above: Performed By: #### L [id number] #### [facility] (DEFAULT) [address] [place] [address] 47199 Immature Grans Absolute 0.09 K/uL High <=0.08 O [facility] Comment on above: Performed By: #### L [id number] #### [facility] (DEFAULT) [address] [place] [address] 97182 Lymphocytes (Bld) [#/Vol] 3.52 10*3/uL High 1.16-3.51 [facility] Comment on above: Performed By: #### L [id number] #### [facility] (DEFAULT) [address] [address] Lymphocytes/100 WBC (Bld) 31.0 % Normal [facility] Comment on above: Performed By: #### L [id number] #### [facility] (DEFAULT) [address] [address] MCV (RBC) [Entitic vol] 95.7 fL Normal 79.6-97.7 O [facility] Comment on above: Performed By: #### L [id number] #### [facility] (DEFAULT) [address] [place] [address] 64445 Mean Cell Hgb 30.8 pg Normal 25.9-33.9 [facility] Comment on above: Performed By: #### L [id number] #### [facility] (DEFAULT) [address] [address] Mean Cell Hgb Conc 32.2 g/dL Normal 31.4-35.9 [facility] Comment on above: Performed By: #### L [id number] #### [facility] (DEFAULT) [address] [address] Monocytes (Bld) [#/Vol] 0.94 10*3/uL High 0.22-0.87 [facility] Comment on above: Performed By: #### L [id number] #### [facility] (DEFAULT) [address] [address] Monocytes/100 WBC (Bld) 8.3 % Normal [facility] Comment on above: Performed By: #### L [id number] #### [facility] (DEFAULT) [address] [address] Nucleated RBC 0.0 /100 WBC Normal <=0.2 [facility] Comment on above: Performed By: #### L [id number] #### [facility] (DEFAULT) [address] [address] Platelet mean volume (Bld) [Entitic vol] 10.2 fL Normal 8.5-12.2 [facility] Comment on above: Performed By: #### L [id number] #### [facility] (DEFAULT) [address] [address] Platelets (Bld) [#/Vol] 241 10*3/uL Normal 150-393 [facility] Comment on above: Performed By: #### L [id number] #### [facility] (DEFAULT) [address] [address] RBC (Bld) [#/Vol] 4.15 10*6/uL Normal 3.91-5.04 [facility] Comment on above: Performed By: #### L [id number] #### [facility] (DEFAULT) [address] [place] [address] 09931 RBC Distribution 13.4 % Normal 10.8-14.9 [facility] Comment on above: Performed By: #### L [id number] #### [facility] (DEFAULT) [address] [place] [address] 45337 Segs + Bands Auto 58.5 % Normal [facility] Comment on above: Performed By: #### L [id number] #### [facility] (DEFAULT) [address] [place] [address] 34942 Segs + Bands,Absolute Auto 6.65 K/uL Normal 1.64-7.28 [facility] Comment on above: Performed By: #### L [id number] #### [facility] (DEFAULT) [address] [place] [address] 52235 WBC (Bld) [#/Vol] 11.35 10*3/uL High 3.99-11.19 [facility] Comment on above: Performed By: #### L [id number] #### [facility] (DEFAULT) [address] [place] [address] 58729 CHEM 6 (LYTES, BUN CREA)on 0 10-07-2024 Anion gap [Moles/Vol] 15 mmol/L 7 - 17 mmol/L [facility] Chloride [Moles/Vol] 104 mmol/L 98 - 10 8 mmol/L [facility] CO2 [Moles/Vol] 24 mmol/L 21 - 31 mmol/L [facility] Creatinine [Mass/Vol] 1.15 mg/dL 0.50 - 1.20 mg/dL [facility] eGFR, CKD-EPI, Female 51 Low - PINF [facility] Comment on above: Reported eGFR is bas ed on the CKD-EPI 2020 equation using creatinine, age, and sex. Interpretation and review of laboratory results Abnormal [facility] Potassium [Moles/Vol] 4.1 mmol/L 3.5 - 5.0 mmol/L [facility] Sodium [Moles/Vol] 139 mmol/L 135 - 145 mmol/L [facility] Urea nitrogen [Mass/Vol] 43 mg/dL High 7 - 25 mg/dL [facility] Urea nitrogen/Creatinine [Mass ratio] 37 mg/mg [facility] Anion gap [Moles/Vol] 15 mmol/L Normal 7-17 [facility] Comment on above: Performed By: #### L [id number] #### [facility] (DEFAULT) [address] [place] [address] 62300 Chloride [Moles/Vol] 104 mmol/L Normal 98-108 [facility] Comment on above: Performed By: #### L [id number] #### [facility] (DEFAULT) [address] [place] [address] 56290 CO2 [Moles/Vol] 24 mmol/L Normal 21-31 [facility] Comment on above: Performed By: #### L [id number] #### [facility] (DEFAULT) [address] [place] [address] 16145 Creatinine [Mass/Vol] 1.15 mg/dL Normal 0.50-1.20 [facility] Comment on above: Performed By: #### L [id number] #### [facility] (DEFAULT) [address] [address] GFR/1.73 sq M.predicted among non-blacks MDRD (S/P/Bld) [Vol rate/Area] 49 mL/min/{1.73_m2} Low >=60 [facility] Comment on above: Result Comment: Repo rted eGFR is based on the CKD-EPI 2020 equation using creatinine, age, and sex. Performed By: #### L [id number] #### [facility] (DEFAULT) [address] [place] [address] 36479 Potassium [Moles/Vol] 4.1 mmol/L Normal 3.5-5.0 [facility] Comment on above: Performed By: #### L [id number] #### [facility] (DEFAULT) [address] [place] [address] 53506 Sodium [Moles/Vol] 139 mmol/L Normal 135-145 [facility] Comment on above: Performed By: #### L [id number] #### [facility] (DEFAULT) [address] [place] [address] Urea nitrogen [Mass/Vol] 43 mg/dL High 7-25 [facility] Comment on above: Performed By: #### L [id number] #### [facility] (DEFAULT) [address] [place] [address] 47776 Urea nitrogen/Creatinine [Mass ratio] 37 mg/mg Normal [facility] Comment on above: Performed By: #### L [id number] #### [facility] (DEFAULT) [address] [place] [address] 87971 Electrophysiology studyon Radiology Study observation (narrative) [facility] PROTIME-INRon 10-07-2024 INR Coag (Bld) [Relative time] 1.1 {INR} 0.9 - 1.1 [facility] Interpretation and review of laboratory results Normal [facility] PT Coag (PPP) [Time] 13.[address] [facility] INR Coag (PPP) [Relative time] 1.1 {INR} Normal 0.9-1.1 [facility] Comment on above: Performed By: #### I PB MGO, HDLT #### [facility] (DEFAULT) [address] [place] [address] PT Coag (PPP) [Time] 13.7 s Normal 11.9-14.2 [facility] Comment on above: Performed By: #### I PB MGO, HDLT #### [facility] (DEFAULT) [address] [place] [address] 85076 PTTon 10-07-2024 aPTT Coag (PPP) [Time] 95.1 s [facility] [place] Interpretation and review of laboratory results Abnormal [facility] aPTT Coag (Bld) [Time] 95.1 s High 24.0-34.3 [facility] Comment on above: Order Comment: After initiation [...] results Performed By: #### P TT #### [facility] (DEFAULT) [address] [address] aPTT Coag (Bld) [Time] 80.4 s High 24.0-34.3 [facility] Comment on above: Order Comment: After initiation [...] By: #### I PB, MGO, HDLT #### [facility] (DEFAULT) [address] [address] PTTOrdered By: Jeanette Meyer on 10-07-2024 aPTT Coag (PPP) [Time] 80.4 s [facility] [place] Interpretation and review of laboratory results Abnormal [facility] XR CHEST PA AND LATERAL 2 EWSon [...] without pneumothorax or other appreciable change. Normal [facility] XR Chest PA and Lateralon IMPRESSION: Left [...] placement without pneumothorax or other appreciable change. [facility] Radiology Study observation (narrative) [facility] XR Chest PA and LateralOrder ed By: Mark Gao on 10-07-2024 [facility] Work Phone: CBC,PLATELETSon 10-06-2024 Erythrocyte distribution width (RBC) [Ratio] 13.5 % 10.8 - 14.9 % [facility] Hematocrit (Bld) [Volume fraction] 42.9 % 34.9 - 44.3 % [facility] Hemoglobin (Bld) [Mass/Vol] 13.9 g/dL 11.4 - 15.2 g/dL [facility] Interpretation and review of laboratory results Abnormal [facility] MCH (RBC) [Entitic mass] 30.8 pg 25.9 - 33.9 pg [facility] MCHC (RBC) [Mass/Vol] 32.4 g/dL 31.4 - 35.9 g/dL [facility] MCV (RBC) [Entitic vol] 94.9 fL 79.6 - 97.7 fL [facility] Platelet mean volume (Bld) [Entitic vol] 10.3 fL 8.5 - 12.2 fL [facility] Platelets (Bld) [#/Vol] 320 10*3/uL 150 - 393 K/uL [facility] RBC (Bld) [#/Vol] 4.52 10*6/uL [facility] WBC (Bld) [#/Vol] 13.16 10*3/uL High 3.99 - 11.19 K/uL [facility] Hematocrit (Bld) [Volume fraction] 42.9 % Normal 34.9-44.3 [facility] Comment on above: Performed By: #### I PB, MGO, HDLT #### [facility] (DEFAULT) [address] [place] [address] Hemoglobin (Bld) [Mass/Vol] 13.9 g/dL Normal 11.4-15.2 [facility] Comment on above: Performed By: #### I PB, MGO, HDLT #### [facility] (DEFAULT) [address] [place] [address]471 MCV (RBC) [Entitic vol] 94.9 fL Normal 79.6-97.7 [facility] Comment on above: Performed By: #### I PB, MGO, HDLT #### [facility] (DEFAULT) [address] [place] [address] 41637 Mean Cell Hgb 30.8 pg Normal 25.9-33.9 [facility] Comment on above: Performed By: #### I PB, MGO, HDLT #### [facility] (DEFAULT) [address] [place] [address] 81988 Mean Cell Hgb Conc 32.4 g/dL Normal 31.4-35.9 [facility] Comment on above: Performed By: #### I PB, MGO, HDLT #### [facility] (DEFAULT) [address] [place] [address]12 Platelet mean volume (Bld) [Entitic vol] 10.3 fL Normal 8.5-12.2 [facility] Comment on above: Performed By: #### I PB, MGO, HDLT #### [facility] (DEFAULT) [address] [place] [address] 33841 Platelets (Bld) [#/Vol] 320 10*3/uL Normal 150-393 [facility] Comment on above: Performed By: #### I PB, MGO, HDLT #### [facility] (DEFAULT) [address] [place] [address] 20009 RBC (Bld) [#/Vol] 4.52 10*6/uL Normal 3.91-5.04 [facility] Comment on above: Performed By: #### I PB, MGO, HDLT #### [facility] (DEFAULT) [address] [place] [address] RBC Distribution 13.5 % Normal 10.8-14.9 [facility] Comment on above: Performed By: #### I PB, MGO, HDLT #### [facility] (DEFAULT) [address] [place] [address] WBC (Bld) [#/Vol] 13.16 10*3/uL High 3.99-11.19 [facility] Comment on above: Performed By: #### I PB, MGO, HDLT #### [facility] (DEFAULT) [address] [place] [address] 25291 Erythrocyte distribution width (RBC) [Ratio] 13.4 % 10.8 - 14.9 % [facility] Hematocrit (Bld) [Volume fraction] 40.6 % 34.9 - 44.3 % [facility] Hemoglobin (Bld) [Mass/Vol] 13.1 g/dL 11.4 - 15.2 g/dL [facility] Interpretation and review of laboratory results Normal [facility] MCH (RBC) [Entitic mass] 30.8 pg 25.9 - 33.9 pg [facility] MCHC (RBC) [Mass/Vol] 32.3 g/dL 31.4 - 35.9 g/dL [facility] MCV (RBC) [Entitic vol] 95.3 fL 79.6 - 97.7 fL [facility] Platelet mean volume (Bld) [Entitic vol] 10.4 fL 8.5 - 12.2 fL [facility] Platelets (Bld) [#/Vol] 259 10*3/uL 150 - 393 K/uL [facility] RBC (Bld) [#/Vol] 4.26 10*6/uL [facility] WBC (Bld) [#/Vol] 10.2 10*3/uL 3.99 - 11.19 K/uL [facility] Hematocrit (Bld) [Volume fraction] 40.6 % Normal 34.9-44.3 [facility] Comment on above: Performed By: #### I PB, MGO, HDLT #### [facility] (DEFAULT) [address] [place] [address] 16345 Hemoglobin (Bld) [Mass/Vol] 13.1 g/dL Normal 11.4-15.2 [facility] Comment on above: Performed By: #### I PB, MGO, HDLT #### [facility] (DEFAULT) [address] [place] [address] 47266 MCV (RBC) [Entitic vol] 95.3 fL Normal 79.6-97.7 [facility] Comment on above: Performed By: #### I PB, MGO, HDLT #### [facility] (DEFAULT) [address] [place] [address] 55537 Mean Cell Hgb 30.8 pg Normal 25.9-33.9 [facility] Comment on above: Performed By: #### I PB, MGO, HDLT #### [facility] (DEFAULT) [address] [place] [address] 68600 Mean Cell Hgb Conc 32.3 g/dL Normal 31.4-35.9 [facility] Comment on above: Performed By: #### I PB, MGO, HDLT #### [facility] (DEFAULT) [address] [place] [address] 9[address]28 Platelet mean volume (Bld) [Entitic vol] 10.4 fL Normal 8.5-12.2 [facility] Comment on above: Performed By: #### I PB, MGO, HDLT #### [facility] (DEFAULT) [address] [place] [address] 26233 Platelets (Bld) [#/Vol] 259 10*3/uL Normal 150-393 [facility] Comment on above: Performed By: #### I PB, MGO, HDLT #### [facility] (DEFAULT) [address] [place] [address] 12138 RBC (Bld) [#/Vol] 4.26 10*6/uL Normal 3.91-5.04 [facility] Comment on above: Performed By: #### I PB, MGO, HDLT #### [facility] (DEFAULT) [address] [place] [address] RBC Distribution 13.4 % Normal 10.8-14.9 [facility] Comment on above: Performed By: #### I PB, MGO, HDLT #### [facility] (DEFAULT) [address] [place] [address] WBC (Bld) [#/Vol] 10.20 10*3/uL Normal 3.99-11.19 [facility] Comment on above: Performed By: #### I PB, MGO, HDLT #### [facility] (DEFAULT) [address] [place] [address] 58597 CHEM 6 (LYTES, BUN CREA)on 0 10-06-2024 Anion gap [Moles/Vol] 15 mmol/L 7 - 17 mmol/L [facility] Chloride [Moles/Vol] 106 mmol/L 98 - 10 8 mmol/L [facility] CO2 [Moles/Vol] 25 mmol/L 21 - 31 mmol/L [facility] Creatinine [Mass/Vol] 0.84 mg/dL 0.50 - 1.20 mg/dL [facility] eGFR, CKD-EPI, Female 74 - PINF [facility] Comment on above: Reported eGFR is bas ed on the CKD-EPI 2020 equation using creatinine, age, and sex. Interpretation and review of laboratory results Abnormal [facility] Potassium [Moles/Vol] 4.5 mmol/L 3.5 - 5.0 mmol/L [facility] Sodium [Moles/Vol] 141 mmol/L 135 - 145 mmol/L [facility] Urea nitrogen [Mass/Vol] 37 mg/dL High 7 - 25 mg/dL [facility] Urea nitrogen/Creatinine [Mass ratio] 44 [facility] An[facility] [Moles/Vol] 15 mmol/L Normal 7-17 [facility] Comment on above: Performed By: #### I PB, MGO, HDLT #### [facility] (DEFAULT) [address] [place] [address] 9[address]81 Chloride [Moles/Vol] 106 mmol/L Normal 98-108 [facility] Comment on above: Performed By: #### I PB, MGO, HDLT #### [facility] (DEFAULT) [address] [place] [address] 37676 CO2 [Moles/Vol] 25 mmol/L Normal 21-31 [facility] Comment on above: Performed By: #### I PB, MGO, HDLT #### [facility] (DEFAULT) [address] [place] [address] 66842 Creatinine [Mass/Vol] 0.84 mg/dL Normal 0.50-1.20 [facility] Comment on above: Performed By: #### I PB, MGO, HDLT #### [facility] (DEFAULT) [address] [place] [address] 06131 GFR/1.73 sq M.predicted among non-blacks MDRD (S/P/Bld) [Vol rate/Area] 72 mL/min/{1.73_m2} Normal >=60 [facility] Comment on above: Result Comment: Repo rted eGFR is based on the CKD-EPI 2020 equation using creatinine, age, and sex. Performed By: #### I PB, MGO, HDLT #### [facility] (DEFAULT) [address] [place] [address] 09164 Potassium [Moles/Vol] 4.5 mmol/L Normal 3.5-5.0 [facility] Comment on above: Performed By: #### I PB, MGO, HDLT #### [facility] (DEFAULT) [address] [place] [address] 38052 Sodium [Moles/Vol] 141 mmol/L Normal 135-145 [facility] Comment on above: Performed By: #### I PB, MGO, HDLT #### [facility] (DEFAULT) [address] [place] [address] 37738 Urea nitrogen [Mass/Vol] 37 mg/dL High 7-25 [facility] Comment on above: Performed By: #### I PB, MGO, HDLT #### [facility] (DEFAULT) [address] [place] [address] 08794 Urea nitrogen/Creatinine [Mass ratio] 44 mg/mg Normal [facility] Comment on above: Performed By: #### I PB, MGO, HDLT #### [facility] (DEFAULT) [address] [place] [address]456 PTTOrdered By: Christina markham on 10-06-2024 aPTT Coag (PPP) [Time] 44.5 s High [place] Interpretation and review of laboratory results Abnormal [facility] Results inconsistent with previous results [facility] PTTon 10-06-2024 aPTT Coag (Bld) [Time] 44.5 s High 24.0-34.3 [facility] Comment on above: Order Comment: After initiation [...] results Performed By: #### P TT #### [facility] (DEFAULT) [address] [place] [address] 95546 aPTT Coag (PPP) [Time] 27.4 s [place] Interpretation and review of laboratory results Normal [facility] aPTT Coag (Bld) [Time] 27.4 s Normal 24.0-34.3 [facility] Comment on above: Order Comment: Draw prior to initiation of intravenous Heparin. Performed By: #### I ABRIL ANDREA HDLT #### [facility] (DEFAULT) [address] [place] [address] CBC,PLATELETSon 10-05-2024 Erythrocyte distribution width (RBC) [Ratio] 13.2 % 10.8 - 14.9 % [facility] Hematocrit (Bld) [Volume fraction] 41 % 34.9 - 44.3 % [facility] Hemoglobin (Bld) [Mass/Vol] 13.4 g/dL 11.4 - 15.2 g/dL [facility] Interpretation and review of laboratory results Abnormal [facility] MCH (RBC) [Entitic mass] 30.9 pg 25.9 - 33.9 pg [facility] MCHC (RBC) [Mass/Vol] 32.7 g/dL 31.4 - 35.9 g/dL [facility] MCV (RBC) [Entitic vol] 94.5 fL 79.6 - 97.7 fL [facility] Platelet mean volume (Bld) [Entitic vol] 10.2 fL 8.5 - 12.2 fL [facility] Platelets (Bld) [#/Vol] 255 10*3/uL 150 - 393 K/uL [facility] RBC (Bld) [#/Vol] 4.34 10*6/uL [facility] WBC (Bld) [#/Vol] 12.05 10*3/uL High 3.99 - 11.19 K/uL [facility] Hematocrit (Bld) [Volume fraction] 41.0 % Normal 34.9-44.3 [facility] Comment on above: Performed By: #### I ABRIL ANDREA HDLT #### [facility] (DEFAULT) [address] [place] [address] Hemoglobin (Bld) [Mass/Vol] 13.4 g/dL Normal 11.4-15.2 [facility] Comment on above: Performed By: #### I PB, MGO, HDLT #### [facility] (DEFAULT) [address] [place] [address] 33892 MCV (RBC) [Entitic vol] 94.5 fL Normal 79.6-97.7 [facility] Comment on above: Performed By: #### I PB, MGO, HDLT #### [facility] (DEFAULT) [address] [place] [address] 35406 Mean Cell Hgb 30.9 pg Normal 25.9-33.9 [facility] Comment on above: Performed By: #### I PB, MGO, HDLT #### [facility] (DEFAULT) [address] [place] [address] 29578 Mean Cell Hgb Conc 32.7 g/dL Normal 31.4-35.9 [facility] Comment on above: Performed By: #### I PB, MGO, HDLT #### [facility] (DEFAULT) [address] [place] [address] 81427 Platelet mean volume (Bld) [Entitic vol] 10.2 fL Normal 8.5-12.2 [facility] Comment on above: Performed By: #### I PB, MGO, HDLT #### [facility] (DEFAULT) [address] [place] [address] 20509 Platelets (Bld) [#/Vol] 255 10*3/uL Normal 150-393 [facility] Comment on above: Performed By: #### I PB, MGO, HDLT #### [facility] (DEFAULT) [address] [place] [address] 72100 RBC (Bld) [#/Vol] 4.34 10*6/uL Normal 3.91-5.04 [facility] Comment on above: Performed By: #### I PB, MGO, HDLT #### [facility] (DEFAULT) [address] [place] [address] RBC Distribution 13.2 % Normal 10.8-14.9 [facility] Comment on above: Performed By: #### I PB, MGO, HDLT #### [facility] (DEFAULT) [address] [place] [address] WBC (Bld) [#/Vol] 12.05 10*3/uL High 3.99-11.19 [facility] Comment on above: Performed By: #### I PB, MGO, HDLT #### [facility] (DEFAULT) [address] [place] [address] CHEM 6 (LYTES, BUN CREA)Orde red By: Caden Oconnor on 10-05-2024 Anion gap [Moles/Vol] 16 mmol/L 7 - 17 mmol/L [facility] Chloride [Moles/Vol] 107 mmol/L 98 - 10 8 mmol/L [facility] CO2 [Moles/Vol] 21 mmol/L 21 - 31 mmol/L [facility] Creatinine [Mass/Vol] 0.94 mg/dL 0.50 - 1.20 mg/dL [facility] eGFR, CKD-EPI, Female 64 - PINF [facility] Comment on above: Reported eGFR is bas ed on the CKD-EPI 2020 equation using creatinine, age, and sex. Interpretation and review of laboratory results Abnormal [facility] Potassium [Moles/Vol] 3.6 mmol/L 3.5 - 5.0 mmol/L [facility] Sodium [Moles/Vol] 140 mmol/L 135 - 145 mmol/L [facility] Urea nitrogen [Mass/Vol] 41 mg/dL High 7 - 25 mg/dL [facility] Urea nitrogen/Creatinine [Mass ratio] 44 mg/mg [facility] CHEM 6 (LYTES, BUN CREA)on 10-05-2024 Anion gap [Moles/Vol] 16 mmol/L Normal 7-17 [facility] Comment on above: Performed By: #### L [id number] #### [facility] (DEFAULT) [address] [place] [address]59 Chloride [Moles/Vol] 107 mmol/L Normal 98-108 [facility] Comment on above: Performed By: #### L [id number] #### [facility] (DEFAULT) [address] [place] [address] 58071 CO2 [Moles/Vol] 21 mmol/L Normal 21-31 [facility] Comment on above: Performed By: #### L [id number] #### [facility] (DEFAULT) [address] [address] Creatinine [Mass/Vol] 0.94 mg/dL Normal 0.50-1.20 [facility] Comment on above: Performed By: #### L [id number] #### [facility] (DEFAULT) [address] [place] [address]105 GFR/1.73 sq M.predicted among non-blacks MDRD (S/P/Bld) [Vol rate/Area] 62 mL/min/{1.73_m2} Normal >=60 [facility] Comment on above: Result Comment: Repo rted eGFR is based on the CKD-EPI 2020 equation using creatinine, age, and sex. Performed By: #### L [id number] #### [facility] (DEFAULT) [address] [place] [address] 20657 Potassium [Moles/Vol] 3.6 mmol/L Normal 3.5-5.0 [facility] Comment on above: Performed By: #### L [id number] #### [facility] (DEFAULT) [address] [place] [address]109 Sodium [Moles/Vol] 140 mmol/L Normal 135-145 [facility] Comment on above: Performed By: #### L [id number] #### [facility] (DEFAULT) [address] [address] Urea nitrogen [Mass/Vol] 41 mg/dL High 7-25 [facility] Comment on above: Performed By: #### L [id number] #### [facility] (DEFAULT) [address] [place] [address] 81840 Urea nitrogen/Creatinine [Mass ratio] 44 mg/mg Normal [facility] Comment on above: Performed By: #### L [id number] #### [facility] (DEFAULT) [address] [place] [address] 98324 PT,INR,PTTon 10-05-2024 aPTT Coag (PPP) [Time] 28.3 s OS [facility] INR Coag (Bld) [Relative time] 1.1 {INR} 0.9 - 1.1 [facility] Interpretation and review of laboratory results Abnormal [facility] PT Coag (PPP) [Time] 14.[address] [facility] aPTT Coag (Bld) [Time] 28.3 s Normal 24.0-34.3 [facility] Comment on above: Performed By: #### I PB MGO HDLT #### [facility] (DEFAULT) [address] [place] [address]278 INR Coag (PPP) [Relative time] 1.1 {INR} Normal 0.9-1.1 [facility] Comment on above: Performed By: #### I PB MGO, HDLT #### [facility] (DEFAULT) [address] [place] [address] 12212 PT Coag (PPP) [Time] 14.6 s High 11.9-14.2 [facility] Comment on above: Performed By: #### I PB MGO, HDLT #### [facility] (DEFAULT) [address] [place] [address]37 CBC,PLATELETSon 10-04-2024 Erythrocyte distribution width (RBC) [Ratio] 13.1 % 10.8 - 14.9 % [facility] Hematocrit (Bld) [Volume fraction] 40.5 % 34.9 - 44.3 % [facility] Hemoglobin (Bld) [Mass/Vol] 12.9 g/dL 11.4 - 15.2 g/dL [facility] Interpretation and review of laboratory results Normal [facility] MCH (RBC) [Entitic mass] 30.8 pg 25.9 - 33.9 pg [facility] MCHC (RBC) [Mass/Vol] 31.9 g/dL 31.4 - 35.9 g/dL [facility] MCV (RBC) [Entitic vol] 96.7 fL 79.6 - 97.7 fL [facility] Platelet mean volume (Bld) [Entitic vol] 10.4 fL 8.5 - 12.2 fL [facility] Platelets (Bld) [#/Vol] 243 10*3/uL 150 - 393 K/uL [facility] RBC (Bld) [#/Vol] 4.19 10*6/uL [facility] WBC (Bld) [#/Vol] 10.5 10*3/uL 3.99 - 11.19 K/uL [facility] Hematocrit (Bld) [Volume fraction] 40.5 % Normal 34.9-44.3 [facility] Comment on above: Performed By: #### I ABRIL ANDREA HDLT #### [facility] (DEFAULT) [address] [address] Hemoglobin (Bld) [Mass/Vol] 12.9 g/dL Normal 11.4-15.2 [facility] Comment on above: Performed By: #### I ABRIL ANDREA HDLT #### [facility] (DEFAULT) [address] [address] MCV (RBC) [Entitic vol] 96.7 fL Normal 79.6-97.7 O [facility] Comment on above: Performed By: #### I PB MGO, HDLT #### [facility] (DEFAULT) [address] [address] Mean Cell Hgb 30.8 pg Normal 25.9-33.9 [facility] Comment on above: Performed By: #### I PB, MGO, HDLT #### [facility] (DEFAULT) [address] [place] [address] 96457 Mean Cell Hgb Conc 31.9 g/dL Normal 31.4-35.9 [facility] Comment on above: Performed By: #### I PB, MGO, HDLT #### [facility] (DEFAULT) [address] [place] [address] 01328 Platelet mean volume (Bld) [Entitic vol] 10.4 fL Normal 8.5-12.2 [facility] Comment on above: Performed By: #### I PB, MGO, HDLT #### [facility] (DEFAULT) [address] [place] [address] 43296 Platelets (Bld) [#/Vol] 243 10*3/uL Normal 150-393 [facility] Comment on above: Performed By: #### I PB, MGO, HDLT #### [facility] (DEFAULT) [address] [place] [address] 00063 RBC (Bld) [#/Vol] 4.19 10*6/uL Normal 3.91-5.04 [facility] Comment on above: Performed By: #### I PB, MGO, HDLT #### [facility] (DEFAULT) [address] [place] [address] 01426 RBC Distribution 13.1 % Normal 10.8-14.9 [facility] Comment on above: Performed By: #### I PB, MGO, HDLT #### [facility] (DEFAULT) [address] [place] [address] 66363 WBC (Bld) [#/Vol] 10.50 10*3/uL Normal 3.99-11.19 [facility] Comment on above: Performed By: #### I PB, MGO, HDLT #### [facility] (DEFAULT) [address] [place] [address] 48761 CHEM 6 (LYTES, BUN CREA)Orde red By: Mikayla Sheridan on 10-04-2024 Anion gap [Moles/Vol] 16 mmol/L 7 - 17 mmol/L [facility] Chloride [Moles/Vol] 106 mmol/L 98 - 10 8 mmol/L [facility] CO2 [Moles/Vol] 22 mmol/L 21 - 31 mmol/L [facility] Creatinine [Mass/Vol] 0.82 mg/dL 0.50 - 1.20 mg/dL [facility] eGFR, CKD-EPI, Female 76 - PINF [facility] Comment on above: Reported eGFR is bas ed on the CKD-EPI 2020 equation using creatinine, age, and sex. Interpretation and review of laboratory results Abnormal [facility] Potassium [Moles/Vol] 5.9 mmol/L High 3.5 - 5.0 mmol/L [facility] Comment on above: Specimen moderately hemolyzed. Potassium results may be falsey elevated by more than 0.8 mmol/L. Consider recollection. Sodium [Moles/Vol] 138 mmol/L 135 - 145 mmol/L [facility] Urea nitrogen [Mass/Vol] 37 mg/dL High 7 - 25 mg/dL [facility] Urea nitrogen/Creatinine [Mass ratio] 45 mg/mg [facility] CHEM 6 (LYTES, BUN CREA)on 0 10-04-2024 Anion gap [Moles/Vol] 16 mmol/L Normal 7-17 [facility] Comment on above: Performed By: #### I ABRIL ANDREA HDLT #### [facility] (DEFAULT) [address] [place] [address] 85097 Chloride [Moles/Vol] 106 mmol/L Normal 98-108 [facility] Comment on above: Performed By: #### I ABRIL ANDREA HDLT #### [facility] (DEFAULT) [address] [address] CO2 [Moles/Vol] 22 mmol/L Normal 21-31 [facility] Comment on above: Performed By: #### I PB, MGO, HDLT #### [facility] (DEFAULT) [address] [place] [address]607 Creatinine [Mass/Vol] 0.82 mg/dL Normal 0.50-1.20 [facility] Comment on above: Performed By: #### I PB MGO, HDLT #### [facility] (DEFAULT) [address] [place] [address] 18570 GFR/1.73 sq M.predicted among non-blacks MDRD (S/P/Bld) [Vol rate/Area] 74 mL/min/{1.73_m2} Normal >=60 [facility] Comment on above: Result Comment: Repo rted eGFR is based on the CKD-EPI 2020 equation using creatinine, age, and sex. Performed By: #### I ZULLY MGO, HDLT #### [facility] (DEFAULT) [address] [place] [address] Potassium [Moles/Vol] 5.9 mmol/L High 3.5-5.0 [facility] Comment on above: Result Comment: Spec imen moderately hemolyzed. Potassium results may be falsey elevated by more than 0.8 mmol/L. Consider recollection. Performed By: #### I PB MGO, HDLT #### [facility] (DEFAULT) [address] [place] [address] 40247 Sodium [Moles/Vol] 138 mmol/L Normal 135-145 [facility] Comment on above: Performed By: #### I PB MGO, HDLT #### [facility] (DEFAULT) [address] [place] [address] 16027 Urea nitrogen [Mass/Vol] 37 mg/dL High 7-25 [facility] Comment on above: Performed By: #### I PB MGO, HDLT #### [facility] (DEFAULT) [address] [place] [address] 42465 Urea nitrogen/Creatinine [Mass ratio] 45 mg/mg Normal [facility] Comment on above: Performed By: #### I PB MGO, HDLT #### [facility] (DEFAULT) [address] [place] [address] 46361 MAGNESIUMon 10-04-2024 Interpretation and review of laboratory results Normal [facility] Magnesium [Mass/Vol] 2.2 mg/dL 1.6 - 2 .6 mg/dL [facility] [Mass/Vol] 2.2 mg/dL Normal 1.6-2.6 [facility] Comment on above: Performed By: #### I PB, MGO, HDLT #### [facility] (DEFAULT) [address] [place] [address] 42254 POTASSIUMon 10-04-2024 Interpretation and review of laboratory results Normal [facility] Potassium [Moles/Vol] 4.6 mmol/L 3.5 - 5.0 mmol/L [facility] Potassium [Moles/Vol] 4.6 mmol/L Normal 3.5-5.0 [facility] Comment on above: Performed By: #### I PB, MGO, HDLT #### [facility] (DEFAULT) [address] [place] [address] URINE CULTUREOrdered By: Sisi Lara on 10-04-2024 Bacteria identified Cx Nom (Unsp spec) Growth [facility] Bacteria identified Cx Nom (Unsp spec) KLEBSIELLA VARIICOLA Abnormal [facility] Comment on above: Susceptibilities set up on 10/03/24 Bacteria identified Cx Nom (Unsp spec) Clinically insignificant microbiota [facility] Interpretation and review of laboratory results Abnormal [facility] EXTRA MICROon 10-02-2024 [facility] URINALYSIS REFLEX TO CULTURE PERFORMABLEOrdered By: Jessica Castañeda on 10-02-2024 Appearance (U) Clear Clear [facility] Bacteria LM Ql (Urine sed) PRESENT Abnormal ABSENT [facility] Color (U) Yellow Yellow [facility] Epithelial cells.squamous LM Ql (Urine sed) 0-2/hpf 0-2/hpf, 3-5/hpf = 1+ [facility] Glucose Test strip (U) [Mass/Vol] >=1000 mg/dL Abnormal Negative [facility] Interpretation and review of laboratory results [facility]normal [facility] Ketones (U) [Mass/Vol] Negative Negative [facility] Leukocyte esterase Test strip Ql (U) Trace Abnormal Negative [facility] Nitrite Ql (U) Positive Abnormal Negative [facility] pH (U) 5.0 [pH] 5.0 - 7.0 [facility] Protein (U) [Mass/Vol] Negative Negative OS [facility] RBC (U) [#/Vol] Negative Negative [facility] RBC LM.HPF (Urine sed) [#/Area] 0-2 [facility] Specific gravity (U) [Rel density] 1.025 1.001 - 1.035 [facility] Urobilinogen (U) [Mass/Vol] 0.2 E.U./dL 0.2 E.U/dL, 1.0 E.U/dL [facility] WBC LM.HPF (Urine sed) [#/Area] 11 - [address] [facility] URINALYSIS REFLEX TO CULTURE PERFORMABLEon 10-02-2024 Appearance (U) Clear Normal Clear [facility] Comment on above: Order Comment: For i ndwelling catheters, specimen collection is acceptable on catheter day 1 and 2 only. ? Performed By: #### U [id number] #### [facility] (DEFAULT) [address] [place] [address] Bacteria PRESENT Abnormal ABSENT [facility] Comment on above: Order Comment: For i ndwelling catheters, specimen collection is acceptable on catheter day 1 and 2 only. ? Performed By: #### U [id number] #### [facility] (DEFAULT) [address] [place] [address] 26283 Blood Urine Negative Normal Negative [facility] Comment on above: Order Comment: For i ndwelling catheters, specimen collection is acceptable on catheter day 1 and 2 only. ? Performed By: #### U [id number] #### [facility] (DEFAULT) [address] [place] [address]807 Color (U) Yellow Normal Yellow [facility] Comment on above: Order Comment: For i ndwelling catheters, specimen collection is acceptable on catheter day 1 and 2 only. ? Performed By: #### U [id number] #### [facility] (DEFAULT) [address] [place] [address] Glucose Ql (U) >=1000 mg/dL Abnormal Negative [facility] Comment on above: Order Comment: For i ndwelling catheters, specimen collection is acceptable on catheter day 1 and 2 only. ? Performed By: #### U [id number] #### [facility] (DEFAULT) [address] [place] [address] Ketones Ql (U) Negative Normal Negative [facility] Comment on above: Order Comment: For i ndwelling catheters, specimen collection is acceptable on catheter day 1 and 2 only. ? Performed By: #### U [id number] #### [facility] (DEFAULT) [address] [place] [address]498 Leukocyte esterase Test strip Ql (U) Trace Abnormal Negative [facility] Comment on above: Order Comment: For i ndwelling catheters, specimen collection is acceptable on catheter day 1 and 2 only. ? Performed By: #### U [id number] #### [facility] (DEFAULT) [address] [place] [address] 35167 Nitrites Urine Positive Abnormal Negative [facility] Comment on above: Order Comment: For i ndwelling catheters, specimen collection is acceptable on catheter day 1 and 2 only. ? Performed By: #### U [id number] #### [facility] (DEFAULT) [address] [place] [address] 51372 pH (U) 5.0 [pH] Normal 5.0-7.0 [facility] Comment on above: Order Comment: For i ndwelling catheters, specimen collection is acceptable on catheter day 1 and 2 only. ? Performed By: #### U [id number] #### [facility] (DEFAULT) [address] [place] [address]6033 Protein Urine Negative Normal Negative [facility] Comment on above: Order Comment: For i ndwelling catheters, specimen collection is acceptable on catheter day 1 and 2 only. ? Performed By: #### U [id number] #### [facility] (DEFAULT) [address] [place] [address] 12023 RBC Urine 0-2 Normal 0-2 [facility] Comment on above: Order Comment: For i ndwelling catheters, specimen collection is acceptable on catheter day 1 and 2 only. ? Performed By: #### U [id number] #### [facility] (DEFAULT) [address] [place] [address] Specific [place] Urine 1.025 Normal 1.001-1.035 [facility] Comment on above: Order Comment: For i ndwelling catheters, specimen collection is acceptable on catheter day 1 and 2 only. ? Performed By: #### U [id number] #### [facility] (DEFAULT) [address] [place] [address] 56111 Squamous/Epithelial Cells, Urine 0-2/hpf Normal 0-2/hpf, 3-5/hpf = 1+ [facility] Comment on above: Order Comment: For i ndwelling catheters, specimen collection is acceptable on catheter day 1 and 2 only. ? Performed By: #### U [id number] #### [facility] (DEFAULT) [address] [place] [address]6947 Urobilinogen Urine 0.2 E.U./dL Normal 0.2 E.U/d L, 1.0 E.U/dL [facility] Comment on above: Order Comment: For i ndwelling catheters, specimen collection is acceptable on catheter day 1 and 2 only. ? Performed By: #### U [id number] #### [facility] (DEFAULT) [address] [place] [address] WBC Urine 11 - 20 Abnormal 0 - 5 [facility] Comment on above: Order Comment: For i ndwelling catheters, specimen collection is acceptable on catheter day 1 and 2 only. ? Performed By: #### U [id number] #### [facility] (DEFAULT) [address] [address] URINE CULTUREon 10-02-2024 Amikacin [Susceptibility] 2 ug/mL Invalid Interpretation Code [facility] Comment on above: Order Comment: [...] Performed By: #### U R #### [facility] (DEFAULT) [address] [place] [address] Ampicillin [Susceptibility] 16 ug/mL Resistant [facility] Comment on above: Order Comment: [...] Performed By: #### U R #### [facility] (DEFAULT) [address] [address] Ampicillin+Sulbactam [Susceptibility] <=2 Invalid Interpretation Code [facility] Comment on above: Order Comment: [...] Performed By: #### U R #### [facility] (DEFAULT) [address] [address] ceFAZolin [Susceptibility] 2 ug/mL Invalid Interpretation Code [facility] Comment on above: Order Comment: [...] Performed By: #### U R #### [facility] (DEFAULT) [address] [address] Cefepime [Susceptibility] <= Invalid Interpretation Code [facility] Comment on above: Order Comment: [...] Performed By: #### U R #### [facility] (DEFAULT) [address] [address] cefTRIAXone [Susceptibility] <= Invalid Interpretation Code [facility] Comment on above: Order Comment: [...] Performed By: #### U R #### [facility] (DEFAULT) [address] [address] Ciprofloxacin [Susceptibility] <= Invalid Interpretation Code [facility] Comment on above: Order Comment: [...] Performed By: #### U R #### [facility] (DEFAULT) [address] [address] Gentamicin [Susceptibility] <= Invalid Interpretation Code [facility] Comment on above: Order Comment: [...] Performed By: #### U R #### [facility] (DEFAULT) [address] [address] levoFLOXacin [Susceptibility] <= Invalid Interpretation Code [facility] Comment on above: Order Comment: [...] Performed By: #### U R #### [facility] (DEFAULT) [address] [place] [address] Nitrofurantoin [Susceptibility] <= Invalid Interpretation Code [facility] Comment on above: Order Comment: [...] Performed By: #### U R #### [facility] (DEFAULT) [address] [place] [address] Trimethoprim+Sulfametho xazole [Susceptibility] <= Invalid Interpretation Code [facility] Comment on above: Order Comment: [...] Performed By: #### U R #### [facility] (DEFAULT) [address] [place], [place] [address], [place] [address] CALCIUMon 10-01-2024 Calcium [Mass/Vol] 9.5 mg/dL 8.6 - 10. 5 mg/dL [facility] [facility] Calcium [Mass/Vol] 9.5 mg/dL Normal 8.6-10.5 [facility] Comment on above: Performed By: #### U R #### [facility] (DEFAULT) [address] [place] [address] CBC AND ELECTRONIC DIFFon Basophils (Bld) [#/Vol] K/uL 0.00 - 0.15 K/uL [facility] Basophils/100 WBC (Bld) 0.2 % [facility] Differential cell count method Nom (Bld) Electronic Differential [facility] Eosinophils (Bld) [#/Vol] 0.06 10*3/uL 0.00 - 0.42 K/uL [facility] Eosinophils/100 WBC (Bld) 0.6 % [facility] Erythrocyte distribution width (RBC) [Ratio] 12.9 % 10.8 - 14.9 % [facility] Hematocrit (Bld) [Volume fraction] 43.2 % 34.9 - 44.3 % [facility] Hemoglobin (Bld) [Mass/Vol] 13.8 g/dL 11.4 - 15.2 g/dL [facility] Immature granulocytes (Bld) [#/Vol] K/uL NINF - 0.08 K/uL [facility] Immature granulocytes/100 WBC (Bld) 0.2 % [facility] Interpretation and review of laboratory results Abnormal [facility] Lymphocytes (Bld) [#/Vol] 3.3 10*3/uL 1.16 - 3.51 K/uL [facility] Lymphocytes/100 WBC (Bld) 30.8 % [facility] MCH (RBC) [Entitic mass] 30.5 pg 25.9 - 33.9 pg [facility] MCHC (RBC) [Mass/Vol] 31.9 g/dL 31.4 - 35.9 g/dL [facility] MCV (RBC) [Entitic vol] 95.4 fL 79.6 - 97.7 fL [facility] Monocytes (Bld) [#/Vol] 0.89 10*3/uL High 0.22 - 0.87 K/uL [facility] Monocytes/100 WBC (Bld) 8.3 % O [facility] Neutrophils (Bld) [#/Vol] 6.41 10*3/uL 1.64 - 7.28 K/uL [facility] Nucleated RBC/100 WBC (Bld) [Ratio] 0 % NINF [facility] Platelet mean volume (Bld) [Entitic vol] 10.1 fL 8.5 - 12.2 fL [facility] Platelets (Bld) [#/Vol] 304 10*3/uL 150 - 393 K/uL [facility] RBC (Bld) [#/Vol] 4.53 10*6/uL [facility] Segmented neutrophils/100 WBC (Bld) 59.9 % [facility] WBC (Bld) [#/Vol] 10.7 10*3/uL 3.99 - 11.19 K/uL [facility] Abs Baso Auto < Normal 0.00-0.15 [facility] Comment on above: Performed By: #### I PB, MGO, HDLT #### [facility] (DEFAULT) [address] [place] [address]387 Basophils/100 WBC (Bld) 0.2 % Normal O [facility] Comment on above: Performed By: #### I PB, MGO, HDLT #### [facility] (DEFAULT) [address] [place] [address] 48690 DIFF STATUS Electronic Differential Normal [facility] Comment on above: Performed By: #### I PB, MGO, HDLT #### [facility] (DEFAULT) [address] [place] [address] 01840 Eosinophils (Bld) [#/Vol] 0.06 10*3/uL Normal 0.00-0.42 [facility] Comment on above: Performed By: #### I PB, MGO, HDLT #### [facility] (DEFAULT) [address] [place] [address] 57915 Eosinophils/100 WBC (Bld) 0.6 % Normal [facility] Comment on above: Performed By: #### I PB, MGO, HDLT #### [facility] (DEFAULT) [address] [place] [address] 87478 Hematocrit (Bld) [Volume fraction] 43.2 % Normal 34.9-44.3 [facility] Comment on above: Performed By: #### I PB, MGO, HDLT #### [facility] (DEFAULT) [address] [place] [address] 64005 Hemoglobin (Bld) [Mass/Vol] 13.8 g/dL Normal 11.4-15.2 [facility] Comment on above: Performed By: #### I PB, MGO, HDLT #### [facility] (DEFAULT) [address] [place] [address] 94494 Immature Grans % 0.2 % Normal [facility] Comment on above: Performed By: #### I PB, MGO, HDLT #### [facility] (DEFAULT) [address] [place] [address] 85889 Immature Grans Absolute < Normal <=0.08 O [facility] Comment on above: Performed By: #### I PB, MGO, HDLT #### [facility] (DEFAULT) [address] [place] [address] 20256 Lymphocytes (Bld) [#/Vol] 3.30 10*3/uL Normal 1.16-3.51 [facility] Comment on above: Performed By: #### I PB, MGO, HDLT #### [facility] (DEFAULT) [address] [place] [address] 61055 Lymphocytes/100 WBC (Bld) 30.8 % Normal [facility] Comment on above: Performed By: #### I PB, MGO, HDLT #### [facility] (DEFAULT) [address] [place] [address] 02370 MCV (RBC) [Entitic vol] 95.4 fL Normal 79.6-97.7 O [facility] Comment on above: Performed By: #### I PB, MGO, HDLT #### [facility] (DEFAULT) [address] [place] [address] 66302 Mean Cell Hgb 30.5 pg Normal 25.9-33.9 [facility] Comment on above: Performed By: #### I PB, MGO, HDLT #### [facility] (DEFAULT) [address] [place] [address] 90522 Mean Cell Hgb Conc 31.9 g/dL Normal 31.4-35.9 [facility] Comment on above: Performed By: #### I PB, MGO, HDLT #### [facility] (DEFAULT) [address] [place] [address] 81873 Monocytes (Bld) [#/Vol] 0.89 10*3/uL High 0.22-0.87 [facility] Comment on above: Performed By: #### I PB, MGO, HDLT #### [facility] (DEFAULT) [address] [place] [address] 88988 Monocytes/100 WBC (Bld) 8.3 % Normal [facility] Comment on above: Performed By: #### I PB, MGO, HDLT #### [facility] (DEFAULT) [address] [place] [address] 98775 Nucleated RBC 0.0 /100 WBC Normal <=0.2 [facility] Comment on above: Performed By: #### I PB, MGO, HDLT #### [facility] (DEFAULT) [address] [place] [address] 50572 Platelet mean volume (Bld) [Entitic vol] 10.1 fL Normal 8.5-12.2 [facility] Comment on above: Performed By: #### I PB, MGO, HDLT #### [facility] (DEFAULT) [address] [place] [address] 35569 Platelets (Bld) [#/Vol] 304 10*3/uL Normal 150-393 [facility] Comment on above: Performed By: #### I PB, MGO, HDLT #### [facility] (DEFAULT) [address] [place] [address] 47743 RBC (Bld) [#/Vol] 4.53 10*6/uL Normal 3.91-5.04 [facility] Comment on above: Performed By: #### I PB, MGO, HDLT #### [facility] (DEFAULT) [address] [place] [address] 84800 RBC Distribution 12.9 % Normal 10.8-14.9 [facility] Comment on above: Performed By: #### I PB, MGO, HDLT #### [facility] (DEFAULT) [address] [place] [address] 44275 Segs + Bands Auto 59.9 % Normal [facility] Comment on above: Performed By: #### I PB, MGO, HDLT #### [facility] (DEFAULT) [address] [place] [address] 88594 Segs + Bands,Absolute Auto 6.41 K/uL Normal 1.64-7.28 [facility] Comment on above: Performed By: #### I PB, MGO, HDLT #### [facility] (DEFAULT) [address] [place] [address] 39615 WBC (Bld) [#/Vol] 10.70 10*3/uL Normal 3.99-11.19 [facility] Comment on above: Performed By: #### I PB, MGO, HDLT #### [facility] (DEFAULT) [address] [place] [address] 98591 CHEM 7 (LYTES,BUN,CREA,GLUC) on 10-01-2024 Anion gap [Moles/Vol] 18 mmol/L High 7 - 17 mmol/L [facility] Chloride [Moles/Vol] 103 mmol/L 98 - 10 8 mmol/L [facility] CO2 [Moles/Vol] 24 mmol/L 21 - 31 mmol/L [facility] Creatinine [Mass/Vol] 0.89 mg/dL 0.50 - 1.20 mg/dL [facility] eGFR, CKD-EPI, Female 69 - PINF [facility] Comment on above: Reported eGFR is bas ed on the CKD-EPI 2020 equation using creatinine, age, and sex. Glucose [Mass/Vol] 99 mg/dL 70 - 179 mg/dL [facility] Osmolality Calc [Osmolality] 302 [facility] Potassium [Moles/Vol] 4.8 mmol/L 3.5 - 5.0 mmol/L [facility] Comment on above: Specimen slightly he molyzed. Potassium results may be falsey elevated by more than 0.5 mmol/L. Consider recollection. Sodium [Moles/Vol] 140 mmol/L 135 - 145 mmol/L [facility] Urea nitrogen [Mass/Vol] 34 mg/dL High 7 - 25 mg/dL [facility] Urea nitrogen/Creatinine [Mass ratio] 38 mg/mg [facility] Anion gap [Moles/Vol] 18 mmol/L High 7-17 [facility] Comment on above: Performed By: #### U R #### [facility] (DEFAULT) [address] [place] [address] 66718 Chloride [Moles/Vol] 103 mmol/L Normal 98-108 [facility] Comment on above: Performed By: #### U R #### [facility] (DEFAULT) [address] [place] [address] CO2 [Moles/Vol] 24 mmol/L Normal 21-31 [facility] Comment on above: Performed By: #### U R #### [facility] (DEFAULT) [address] [place] [address] 07515 Creatinine [Mass/Vol] 0.89 mg/dL Normal 0.50-1.20 [facility] Comment on above: Performed By: #### U R #### [facility] (DEFAULT) [address] [place] [address] 46912 GFR/1.73 sq M.predicted among non-blacks MDRD (S/P/Bld) [Vol rate/Area] 67 mL/min/{1.73_m2} Normal >=60 [facility] Comment on above: Result Comment: Repo rted eGFR is based on the CKD-EPI 2020 equation using creatinine, age, and sex. Performed By: #### U R #### [facility] (DEFAULT) [address] [place] [address] 38982 Glucose [Mass/Vol] 99 mg/dL Normal Nonfastin -179 mg/dL; Fastin-99 [facility] Comment on above: Performed By: #### U R #### [facility] (DEFAULT) [address] [place] [address] 08984 Osmolality [Osmolality] 302 mosm/kg Normal 278-305 [facility] Comment on above: Performed By: #### U R #### [facility] (DEFAULT) [address] [place] [address] 81763 Potassium [Moles/Vol] 4.8 mmol/L Normal 3.5-5.0 [facility] Comment on above: Result Comment: Spec imen slightly hemolyzed. Potassium results may be falsey elevated by more than 0.5 mmol/L. Consider recollection. Performed By: #### U R #### [facility] (DEFAULT) [address] [place] [address] 42203 Sodium [Moles/Vol] 140 mmol/L Normal 135-145 [facility] Comment on above: Performed By: #### U R #### [facility] (DEFAULT) [address] [place] [address] 15654 Urea nitrogen [Mass/Vol] 34 mg/dL High 7-25 [facility] Comment on above: Performed By: #### U R #### [facility] (DEFAULT) [address] [place] [address] 08450 Urea nitrogen/Creatinine [Mass ratio] 38 mg/mg Normal [facility] Comment on above: Performed By: #### U R #### [facility] (DEFAULT) [address] [place] [address] 21728 HEPATIC FUNCTION PANELon Albumin [Mass/Vol] 4.4 g/dL 3.5 - 5.0 g/dL [facility] ALP [Catalytic activity/Vol] 66 U/L 32 - 126 U/L [facility] ALT [Catalytic activity/Vol] 75 U/L High 9 - 48 U/L [facility] AST [Catalytic activity/Vol] 45 U/L High 10 - 39 U/L [facility] Comment on above: Specimen slightly he molyzed. AST results may be falsely elevated. Interpret within the clinical context. Bilirubin [Mass/Vol] 0.4 mg/dL [facility] - 1.5 mg/dL [facility] Bilirubin.direct [Mass/Vol] mg/dL [facility] - 0.3 mg/dL [facility] Comment on above: Specimen hemolyzed. Direct bilirubin results may be falsely decreased. Interpret within the clinical context. Protein [Mass/Vol] 7.2 g/dL 6.4 - 8.3 g/dL [facility] Albumin [Mass/Vol] 4.4 g/dL Normal 3.5-5.0 [facility] Comment on above: Performed By: #### U R #### [facility] (DEFAULT) [address] [place] [address] 84852 ALP [Catalytic activity/Vol] 66 U/L Normal 32-126 [facility] Comment on above: Performed By: #### U R #### [facility] (DEFAULT) [address] [place] [address] ALT [Catalytic activity/Vol] 75 U/L High 9-48 [facility] Comment on above: Performed By: #### U R #### [facility] (DEFAULT) [address] [place] [address] 36388 AST [Catalytic activity/Vol] 45 U/L High 10-39 [facility] Comment on above: Result Comment: Spec imen slightly hemolyzed. AST results may be falsely elevated. Interpret within the clinical context. Performed By: #### U R #### [facility] (DEFAULT) [address] [place] [address] 07138 Bilirubin [Mass/Vol] 0.4 mg/dL Normal <1.5 [facility] Comment on above: Performed By: #### U R #### [facility] (DEFAULT) [address] [place] [address] 73344 Bilirubin Direct < Normal <0.3 [facility] Comment on above: Result Comment: Spec imen hemolyzed. Direct bilirubin results may be falsely decreased. Interpret within the clinical context. Performed By: #### U R #### [facility] (DEFAULT) [address] [place] [address] 19802 Protein [Mass/Vol] 7.2 g/dL Normal 6.4-8.3 [facility] Comment on above: Performed By: #### U R #### [facility] (DEFAULT) [address] [address] MAGNESIUMon 10-01-2024 Magnesium [Mass/Vol] 2.2 mg/dL 1.6 - 2 .6 mg/dL [facility] Magnesium [Mass/Vol] 2.2 mg/dL Normal 1.6-2.6 [facility] Comment on above: Performed By: #### U R #### [facility] (DEFAULT) [address] [address] No Panel Informationon 10-01 Interpretation and review of laboratory results Abnormal [facility] Interpretation and review of laboratory results Normal [facility] PHOSPHATE, INORGANICon 10-01 Phosphate [Mass/Vol] 4.1 mg/dL 2.2 - 4 .6 mg/dL [facility] Phosphorous 4.1 mg/dL Normal 2.2-4.6 [facility] Comment on above: Performed By: #### U R #### [facility] (DEFAULT) [address] [place] [address] 66855 PT,INR,PTTon 10-01-2024 aPTT Coag (PPP) [Time] 27.5 s [place] INR Coag (Bld) [Relative time] 1.1 {INR} 0.9 - 1.1 [facility] Interpretation and review of laboratory results Normal [facility] PT Coag (PPP) [Time] 13.[address] [facility] aPTT Coag (Bld) [Time] 27.5 s Normal 24.0-34.3 [facility] Comment on above: Performed By: #### U R #### [facility] (DEFAULT) [address] [place] [address] INR Coag (PPP) [Relative time] 1.1 {INR} Normal 0.9-1.1 [facility] Comment on above: Performed By: #### U R #### [facility] (DEFAULT) [address] [place] [address] PT Coag (PPP) [Time] 13.9 s Normal 11.9-14.2 [facility] Comment on above: Performed By: #### U R #### [facility] (DEFAULT) [address] [place] [address] 48449 Procedure Reporton Procedure Report Normal [facility] 12 Lead EKG performed by [facility] on 09-29-2024 12 Lead EKG performed by [facility] Normal [facility] Anion gap in Serum or Plasma Ordered By: Maxim Ibarra on 09-29-2024 Anion gap [Moles/Vol] 13 mmol/L 5-[address] [facility] BUN/creatinine ratioOrdered By: Maxim Ibarra on 09-29-2024 Urea nitrogen/Creatinine [Mass ratio] 35.1 mg/mg High 02-28 [facility] Basic Metabolic Profile (BMP )on 09-29-2024 BUN/CRE 35.1 RATIO High 02-28 [facility] Comment on above: Order Comment: for D CCV tomorrow Performed By: #### L 500.2500 ####[facility] [address] [place], [address] Calcium [Mass/Vol] 9.8 mg/dL Normal 7.6-11.0 [facility] Comment on above: Order Comment: for D CCV tomorrow Performed By: #### L 500.2500 ####[facility] [address] [place], [address] Chloride [Moles/Vol] 102 mmol/L Normal 98-108 [facility] Comment on above: Order Comment: for D CCV tomorrow Performed By: #### L 500.2500 ####[facility] [address] [place], [address] CO2 [Moles/Vol] 24.1 mmol/L Normal 21.0-32.0 [facility] Comment on above: Order Comment: for D CCV tomorrow Performed By: #### L 500.2500 ####[facility] [address] [place], [address] Creatinine [Mass/Vol] 0.96 mg/dL Normal 0.70-1.[address] [facility] Comment on above: Order Comment: for D CCV tomorrow Performed By: #### L 500.2500 ####[facility] [address] [place], [address] ECRCL 39.42 ml/min Low 50-250 [facility] Comment on above: Order Comment: for D CCV tomorrow Performed By: #### L 500.2500 ####[facility] [address] [place], [address] GAP 13 Normal 5-15 [facility] Comment on above: Order Comment: for D CCV tomorrow Performed By: #### L 500.2500 ####[facility] [address] [place], [address] GFR/1.73 sq M.predicted among non-blacks MDRD (S/P/Bld) [Vol rate/Area] 61 mL/min/{1.73_m2} Normal >60 [facility] Comment on above: Order Comment: for D CCV tomorrow Result Comment: mL/m in/1.73m2 CKD-EPI Creatinine Equation (2020) Performed By: #### L 500.2500 ####[facility] [address] [place], [address] Glucose [Mass/Vol] 100 mg/dL High 70-99 [facility] Comment on above: Order Comment: for D CCV tomorrow Performed By: #### L 500.2500 ####[facility] [address] [place], [address] Potassium [Moles/Vol] 4.2 mmol/L Normal 3.3-5.[address] [facility] Comment on above: Order Comment: for D CCV tomorrow Result Comment: Hemo lysis present, Results??could be affected.?? Performed By: #### L 500.2500 ####[facility] [address] [place], [address] Sodium [Moles/Vol] 140 mmol/L Normal 133-145 [facility] Comment on above: Order Comment: for D CCV tomorrow Performed By: #### L 500.2500 ####[facility] [address] [place], [address] Urea nitrogen [Mass/Vol] 34 mg/dL High 4-19 [facility] Comment on above: Order Comment: for D CCV tomorrow Performed By: #### L 500.2500 ####[facility] [address] [place], [address] Carbon dioxide, total [Moles /volume] in Central venous bloodOrdered By: Maxim Ibarra on 09-29-2024 CO2 [Moles/Vol] 24.1 mmol/L 21.0-32.0 [facility] Chloride assayOrdered By: Stephen Ibarra on 09-29-2024 Chloride [Moles/Vol] 102 mmol/L 98-108 [facility] Glomerular filtration rate ( GFR) estimation/1.73 sq m using serum, plasma, or whole bOrdered By: Maxim Ibarra on 09-29-2024 GFR/1.73 sq M.predicted among non-blacks MDRD (S/P/Bld) [Vol rate/Area] 61 mL/min/{1.73_m2} >60 [facility] Comment on above: mL/min/1.73m2 CKD-EP I Creatinine Equation (2020) Potassium measurement (mass/ volume)Ordered By: Maxim bIarra on 09-29-2024 Potassium (Unsp spec) [Mass/Vol] 4.2 mmol/L 3.3-5.1 [facility] Comment on above: Hemolysis present, R esults could be affected. Serum creatinine measurement (mass/volume)Ordered By: Maxim Ibarra on 09-29-2024 Creatinine [Mass/Vol] 0.96 mg/dL 0.70-1.[address] [facility] Serum glucose measurement (m ass/volume)Ordered By: Maxim Ibarra on 09-29-2024 Glucose [Mass/Vol] 100 mg/dL High 70-99 [facility] Serum or plasma calcium michelle urement (mass/volume)Ordered By: Maxim Ibarra on 09-29-2024 Calcium [Mass/Vol] 9.8 mg/dL 7.6-11.0 [facility] Serum or plasma urea nitroge n measurement (mass/volume)Ordered By: Maxim Ibarra on 09-29-2024 Urea nitrogen [Mass/Vol] 34 mg/dL High 4-19 [facility] Sodium levelOrdered By: Whitney Ibarra on 09-29-2024 Sodium [Moles/Vol] 140 mmol/L 133-145 [facility] Spine Lumbar (Routine)on Spine Lumbar (Routine) Normal [facility] Anion gap in Serum or Plasma Ordered By: Omid Moreno on 09-17-2024 Anion gap [Moles/Vol] 14 mmol/L - [facility] BUN/creatinine ratioOrdered By: Omid Moreno on 09-17-2024 Urea nitrogen/Creatinine [Mass ratio] 33.5 mg/mg High 02-28 [facility] Carbon dioxide, total [Moles /volume] in Central venous bloodOrdered By: Omid Moreno on 09-17-2024 CO2 [Moles/Vol] 25.2 mmol/L 21.0-32.0 [facility] Chloride assayOrdered By: Gini Moreno on 09-17-2024 Chloride [Moles/Vol] 100 mmol/L 98-108 [facility] Glomerular filtration rate ( GFR) estimation/1.73 sq m using serum, plasma, or whole bOrdered By: Omid Moreno on 09-17-2024 GFR/1.73 sq M.predicted among non-blacks MDRD (S/P/Bld) [Vol rate/Area] 49 mL/min/{1.73_m2} Low >60 [facility] Comment on above: mL/min/1.73m2 CKD-EP I Creatinine Equation (2020) Potassium measurement (mass/ volume)Ordered By: Omid Moreno on 09-17-2024 Potassium (Unsp spec) [Mass/Vol] 3.7 mmol/L 3.3-5.1 [facility] Renal Profileon 09-17-2024 Albumin [Mass/Vol] 4.5 g/dL Normal 3.4-4.8 [facility] Comment on above: Performed By: #### L 500.3600 ####[facility] [address] [place], [place], [id number] BUN/CRE 33.5 RATIO High 02-28 [facility] Comment on above: Performed By: #### L 500.3600 ####[facility] [address] [place], [place], [id number] Calcium [Mass/Vol] 9.8 mg/dL Normal 7.6-11.0 [facility] Comment on above: Performed By: #### L 500.3600 ####[facility] [address] [place], [address] Chloride [Moles/Vol] 100 mmol/L Normal 98-108 [facility] Comment on above: Performed By: #### L 500.3600 ####[facility] [address] [place], [address] CO2 [Moles/Vol] 25.2 mmol/L Normal 21.0-32.0 [facility] Comment on above: Performed By: #### L 500.3600 ####[facility] [address] [place], [address] Creatinine [Mass/Vol] 1.15 mg/dL Normal 0.70-1.[address] [facility] Comment on above: Performed By: #### L 500.3600 ####[facility] [address] [place], [address] GAP 14 Normal 5-15 [facility] Comment on above: Performed By: #### L 500.3600 ####[facility] [address] [place], [address] GFR/1.73 sq M.predicted among non-blacks MDRD (S/P/Bld) [Vol rate/Area] 49 mL/min/{1.73_m2} Low >60 [facility] Comment on above: Result Comment: mL/m in/1.73m2 CKD-EPI Creatinine Equation (2020) Performed By: #### L 500.3600 ####[facility] [address] [place], [address] Glucose [Mass/Vol] 114 mg/dL High 70-99 [facility] Comment on above: Performed By: #### L 500.3600 ####[facility] [address] [place], [address] Phosphate [Mass/Vol] 4.1 mg/dL Normal 2.7-4.5 [facility] Comment on above: Performed By: #### L 500.3600 ####[facility] [address] [place], [address] Potassium [Moles/Vol] 3.7 mmol/L Normal 3.3-5.[address] [facility] Comment on above: Performed By: #### L 500.3600 ####[facility] [address] [place], [address] Sodium [Moles/Vol] 140 mmol/L Normal 133-145 [facility] Comment on above: Performed By: #### L 500.3600 ####[facility] [address] [place], [address] Urea nitrogen [Mass/Vol] 39 mg/dL High 4-19 [facility] Comment on above: Performed By: #### L 500.3600 ####[facility] [address] [place], [address] Serum creatinine measurement (mass/volume)Ordered By: Omid Moreno on 09-17-2024 Creatinine [Mass/Vol] 1.15 mg/dL 0.70-1.[address] [facility] Serum glucose measurement (m ass/volume)Ordered By: Omid Moreno on 09-17-2024 Glucose [Mass/Vol] 114 mg/dL High 70-99 [facility] Serum or plasma albumin michelle urement (mass/volume)Ordered By: Omid Moreno on 09-17-2024 Albumin [Mass/Vol] 4.5 g/dL 3.4-4.8 [facility] Serum or plasma calcium michelle urement (mass/volume)Ordered By: Omid Moreno on 09-17-2024 Calcium [Mass/Vol] 9.8 mg/dL 7.6-11.0 [facility] Serum or plasma urea nitroge n measurement (mass/volume)Ordered By: Omid Moreno on 09-17-2024 Urea nitrogen [Mass/Vol] 39 mg/dL High - [facility] Sodium levelOrdered By: Sera barrera Tiffanie on 09-17-2024 Sodium [Moles/Vol] 140 mmol/L 133-145 [facility] NCS and/or EMG Patienton NCS and/or EMG Patient Normal [facility] Cerv Spine 4 or 5 Viewson Cerv Spine 4 or 5 Views Normal [facility] L/S Spine Min 4 Viewson L/S Spine Min 4 Views [facility] Report[facility] Orthopedic Visit Report Normal [facility] CNOVon 08-11-2024 CNOV Office Visit (INTMWS ) ELIZABETH PERSAUD ([id number]) 1945 F [facility] Date Time Provider Department 08/11/24 8:40 AM DIANNA BALLARD During your visit today, we recorded the following information about you: Pulse Respiration Blood pressure 74/minute 16/minute 138/78 Dianna Ballard APRN.BOLT SORTER 08/11/2024 10:19 AM Signed CC: Patient presents with: Dizziness: Vertigo x 6 days HPI Elizabeth Celsa Hung is a 79 year old female who presents today for vertigo for 6 days. A week prior to this was at [place] [facility] for A-fib with RVR with symptoms of palpitations that were resolved with fluids and 3 doses of IV lopressor that she converted to SR. Has appointment with her marker shipments for ablation later today. Dizziness has been [...] get in for a few weeks. Using swiftQueue eucalyptus in the shower which helped. Also [...] EGD 06/11/2022 EGD TRANSORAL BIOPSY SINGLE/MULTIPLE 02/08/2011 ESOPHAGOGASTRODUODENOS COPY TRANSORAL DIAGNOSTIC 10/06/2013 EGD ESOPHAGOGASTRODUODENOS COPY TRANSORAL DIAGNOSTIC 11/22/2015 EGD ESOPHAGOGASTRODUODENOS COPY TRANSORAL DIAGNOSTIC 02/28/2016 EGD EYE SURGERY HX HERNIA REPAIR HX LIG/TRNSXJ FLP TUBE ABDL/VAG APPR UNI/BI Tubal ligation NEUROPLASTY AND/TRANSPOS MEDIAN NRV CARPAL TUNNE 02/14/2012 Carpal tunnel decomp - right OOPHORECTOMY PARTIAL/TOTAL UNI/BI 07/17/2010 Oophorectomy - left Dr. Manuel Hoover - Dr. Alessio Welch PAST SURGICAL HISTORY OF NECK SURGERY, anterior [...] YRS/> REDUCIBLE 07/17/2010 Hernia repair, umbilical >5yr [facility] Dr Manuel Hoover SHX COSMETIC SURGERY SKIN BIOPSY HX ALLERGIES Cardizem [Diltiazem Hcl], Codeine, Entex [Phenylephrine-Guaifen esin], Etodolac, Meloxicam, Naproxen, Tape [Adhesive Tape (Rosins)], Trazodone, and Zantac [Ranitidine Hcl] MEDICATIONS fluticasone (FLONASE) 50 mcg/actuation nasal spray Use 2 Sprays in each nostril once daily. Rinse mouth after use. benzonatate (TESSALON PERLE) 100 mg capsule Take 1 capsule by mouth three times a day as needed. dofetilide (TIKOSYN) 125 mcg capsule 125 mcg two times a day. fluticasone-umeclidin- vilanter (TRELEGY ELLIPTA) 100-62.5-25 mcg inhalation powder Inhale [...] metoprolol succin (more content not included)... Normal [facility] CBC W/Diff, Automatedon 07-11 Absolute Lymph 4.65 X10 3/uL High 0.83-4.51 [facility] Comment on above: Performed By: #### L 100.0100, L501.5200, L501.9520, L500.2500 ####[facility] [address] [place], [address] Absolute Neut 4.8 X10 3/uL Normal 2.0-7.7 [facility] Comment on above: Performed By: #### L 100.0100, L501.5200, L501.9520, L500.2500 ####[facility] [address] [place], [address] Basophils/100 WBC (Bld) 0.5 % Normal 0-1 [facility] Comment on above: Performed By: #### L 100.0100, L501.5200, L501.9520, L500.2500 ####[facility] [address] [place], [address] Eosinophils/100 WBC (Bld) 1.4 % Normal 0-5 [facility] Comment on above: Performed By: #### L 100.0100, L501.5200, L501.9520, L500.2500 ####[facility] [address] [place], [address] Erythrocyte distribution width (RBC) [Ratio] 12.9 % Normal 11.6-14.6 [facility] Comment on above: Performed By: #### L 100.0100, L501.5200, L501.9520, L500.2500 ####[facility] [address] [place], [address] Hematocrit (Bld) [Volume fraction] 42.9 % Normal 37-47 [facility] Comment on above: Performed By: #### L 100.0100, L501.5200, L501.9520, L500.2500 ####[facility] [address] [place], [address] Hemoglobin (Bld) [Mass/Vol] 14.7 g/dL Normal 12.0-15.0 [facility] Comment on above: Performed By: #### L 100.0100, L501.5200, L501.9520, L500.2500 ####[facility] [address] [place], [address] IG% 0.400 Normal 0.0-0.9 [facility] Comment on above: Result Comment: IG% - Immature Granulocytes (promyelocytes, myelocytes andmetamyelocytes) > 1% indicates that a LEFT SHIFT is Present. Performed By: #### L 100.0100, L501.5200, L501.9520, L500.2500 ####[facility] [address] [place], [address] Lymphocytes/100 WBC (Bld) 44.5 % High 19-41 [facility] Comment on above: Performed By: #### L 100.0100, L501.5200, L501.9520, L500.2500 ####[facility] [address] [place], [address] MCH (RBC) [Entitic mass] 31.9 pg Normal 27.0-32.0 [facility] Comment on above: Performed By: #### L 100.0100, L501.5200, L501.9520, L500.2500 ####[facility] [address] [place], [address] MCHC (RBC) [Mass/Vol] 34.3 g/dL Normal 32-[address] [facility] Comment on above: Performed By: #### L 100.0100, L501.5200, L501.9520, L500.2500 ####[facility] [address] [place], [address] MCV (RBC) [Entitic vol] 93.1 fL Normal 81-99 [facility] Comment on above: Performed By: #### L 100.0100, L501.5200, L501.9520, L500.2500 ####[facility] [address] [place], [address] Monocytes/100 WBC (Bld) 7.7 % Normal 0-10 [facility] Comment on above: Performed By: #### L 100.0100, L501.5200, L501.9520, L500.2500 ####[facility] [address] [place], [address] Neutrophils/100 WBC (Bld) 45.5 % Low 47-70 [facility] Comment on above: Performed By: #### L 100.0100, L501.5200, L501.9520, L500.2500 ####[facility] [address] [place], [address] Nucleated RBC (Bld) [#/Vol] 0 10*3/uL Normal 0-5 [facility] Comment on above: Performed By: #### L 100.0100, L501.5200, L501.9520, L500.2500 ####[facility] [address] [place], [address] Platelet mean volume (Bld) [Entitic vol] 11.0 fL Normal 6.2-12.0 [facility] Comment on above: Performed By: #### L 100.0100, L501.5200, L501.9520, L500.2500 ####[facility] [address] [place], [address] Platelets (Bld) [#/Vol] 320 10*3/uL Normal 150-450 [facility] Comment on above: Performed By: #### L 100.0100, L501.5200, L501.9520, L500.2500 ####[facility] [address] [place], [address] RBC (Bld) [#/Vol] 4.61 10*6/uL Normal 4.2-5.4 [facility] Comment on above: Performed By: #### L 100.0100, L501.5200, L501.9520, L500.2500 ####[facility] [address] [place], [address] RDW SD 43.4 fl Normal 35.1-43.9 [facility] Comment on above: Performed By: #### L 100.0100, L501.5200, L501.9520, L500.2500 ####[facility] [address] [place], [address] WBC (Bld) [#/Vol] 10.5 10*3/uL Normal 4.4-11.0 [facility] Comment on above: Performed By: #### L 100.0100, L501.5200, L501.9520, L500.2500 ####[facility] [address] [place], [address] 12 Lead EKGon 07-31-2024 12 Lead EKG Normal [facility] 12 Lead EKG Normal [facility] Absolute lymphocyte countOrd ered By: Saul Guzman on 07-31-2024 Lymphocytes Auto (Unsp spec) [#/Vol] 4.65 10*3/uL High 0.83-4.51 [facility] Absolute neutrophil countOrd ered By: Saul Guzman on 07-31-2024 Neutrophils (Bld) [#/Vol] 4.8 10*3/uL 2.0-7.7 [facility] Anion gap in Serum or Plasma Ordered By: Saul Guzman on 07-31-2024 Anion gap [Moles/Vol] 15 mmol/L 5-[address] [facility] Automated lymphocyte count a s percentage of total leukocytesOrdered By: Saul Guzman on 07-31-2024 Lymphocytes/100 WBC Auto (Unsp spec) 44.5 % High 19-41 [facility] BUN/creatinine ratioOrdered By: Saul Guzman on 07-31-2024 Urea nitrogen/Creatinine [Mass ratio] 25.2 mg/mg High 10- [facility] Basic Metabolic Profile (BMP )on 07-31-2024 BUN/CRE 25.2 RATIO High 10- [facility] Comment on above: Performed By: #### L 100.0100, L501.5200, L501.9520, L500.2500 ####[facility] [address] [place], [address] Calcium [Mass/Vol] 10.1 mg/dL Normal 7.6-11.0 [facility] Comment on above: Performed By: #### L 100.0100, L501.5200, L501.9520, L500.2500 ####[facility] [address] [place], [address] Chloride [Moles/Vol] 105 mmol/L Normal 98-108 [facility] Comment on above: Performed By: #### L 100.0100, L501.5200, L501.9520, L500.2500 ####[facility] [address] [place], [address] CO2 [Moles/Vol] 22.9 mmol/L Normal 21.0-32.0 [facility] Comment on above: Performed By: #### L 100.0100, L501.5200, L501.9520, L500.2500 ####[facility] [address] [place], [address] Creatinine [Mass/Vol] 1.11 mg/dL Normal 0.70-1.[address] [facility] Comment on above: Performed By: #### L 100.0100, L501.5200, L501.9520, L500.2500 ####[facility] [address] [place], [address] ECRCL 35.99 ml/min Low 50-250 [facility] Comment on above: Performed By: #### L 100.0100, L501.5200, L501.9520, L500.2500 ####[facility] [address] [place], [address] GAP 15 Normal 5-15 [facility] Comment on above: Performed By: #### L 100.0100, L501.5200, L501.9520, L500.2500 ####[facility] [address] [place], [address] GFR/1.73 sq M.predicted among non-blacks MDRD (S/P/Bld) [Vol rate/Area] 51 mL/min/{1.73_m2} Low >60 [facility] Comment on above: Result Comment: mL/m in/1.73m2 CKD-EPI Creatinine Equation (2020) Performed By: #### L 100.0100, L501.5200, L501.9520, L500.2500 ####[facility] [address] [place], [address] Glucose [Mass/Vol] 128 mg/dL High 70-99 [facility] Comment on above: Performed By: #### L 100.0100, L501.5200, L501.9520, L500.2500 ####[facility] [address] [place], [address] Potassium [Moles/Vol] 4.6 mmol/L Normal 3.3-5.[address] [facility] Comment on above: Result Comment: Hemo lysis present, Results??could be affected.?? Performed By: #### L 100.0100, L501.5200, L501.9520, L500.2500 ####[facility] [address] [place], [address] Sodium [Moles/Vol] 143 mmol/L Normal 133-145 [facility] Comment on above: Performed By: #### L 100.0100, L501.5200, L501.9520, L500.2500 ####[facility] [address] [place], [address] Urea nitrogen [Mass/Vol] 28 mg/dL High 4-19 [facility] Comment on above: Performed By: #### L 100.0100, L501.5200, L501.9134, L500.6476 ####[facility] [address] [place], [address] Basophil percentageOrdered B y: Saul Guzman on 07-31-2024 Basophils/100 WBC (Bld) 0.5 % 0-1 [facility] Carbon dioxide, total [Moles /volume] in Central venous bloodOrdered By: Saul Guzman on 07-31-2024 CO2 [Moles/Vol] 22.9 mmol/L 21.0-32.0 [facility] Chloride assayOrdered By: Mary Lou Guzman on 07-31-2024 Chloride [Moles/Vol] 105 mmol/L 98-108 [facility] Emergency Department Summary on 07-31-2024 Emergency Department Summary Normal [facility] Eosinophil percentageOrdered By: Saul Guzman on 07-31-2024 Eosinophils/100 WBC (Bld) 1.4 % 0-5 [facility] Erythrocyte distribution wid th ratioOrdered By: Saul Guzman on 07-31-2024 Erythrocyte distribution width (RBC) [Ratio] 12.9 % 11.6-14.6 [facility] Erythrocyte distribution wid th standard deviationOrdered By: Saul Guzman on 07-31-2024 Erythrocyte distribution width (RBC) [Entitic vol] 43.4 fL 35.1-43.9 [facility] Erythrocyte distribution width (RBC) [Ratio] 43.4 fl 35.1-43.9 [facility] Estimation of creatinine shirin aranceOrdered By: Saul Guzman on 07-31-2024 Estimated Creatinine Clearance Calc 35.99 ml/min Low 50-250 [facility] GFR/1.73 sq M.predicted flor g non-blacks MDRD (S/P/Bld) [Vol rate/Area]Ordered By: Saul Guzman on 07-31-2024 Estimated GFR (MDRD) Non-Af Amer 51 Low >60 [facility] Comment on above: mL/min/1.73m2 CKD-EP I Creatinine Equation (2020) Glomerular filtration rate ( GFR) estimation/1.73 sq m using serum, plasma, or whole bOrdered By: Saul Guzman on 07-31-2024 GFR/1.73 sq M.predicted among non-blacks MDRD (S/P/Bld) [Vol rate/Area] 51 mL/min/{1.73_m2} Low >60 [facility] Comment on above: mL/min/1.73m2 CKD-EP I Creatinine Equation (2020) Hematocrit Auto (Bld) [Volum e fraction]Ordered By: Saul Guzman on 07-31-2024 Hematocrit (Bld) [Volume fraction] 42.9 % 37-47 [facility] Hemoglobin measurementOrdere d By: Saul Guzman on 07-31-2024 Hemoglobin (Bld) [Mass/Vol] 14.7 g/dL 12.0-15.0 [facility] Immature granulocytes/100 WB C Auto (Bld)Ordered By: Saul Guzman on 07-31-2024 Immature granulocytes/100 WBC (Bld) 0.400 % 0.0-0.9 [facility] Comment on above: IG% - Immature Granu locytes (promyelocytes, myelocytes and metamyelocytes) > 1% indicates that a LEFT SHIFT is Present. Lymphocytes Auto (Unsp spec) [#/Vol]Ordered By: Saul Guzman on 07-31-2024 Lymphocytes (Bld) [#/Vol] 4.65 10*3/uL High 0.83-4.51 [facility] Lymphocytes/100 WBC Auto (Un sp spec)Ordered By: Saul Guzman on 07-31-2024 Lymphocytes/100 WBC (Bld) 44.5 % High 19-41 [facility] MCV (mean corpuscular volume ) determinationOrdered By: Saul Guzman on 07-31-2024 MCV (RBC) [Entitic vol] 93.1 fL 81-99 [facility] Magnesiumon 07-31-2024 Magnesium [Mass/Vol] 2.1 mg/dL Normal 1.5-2.2 [facility] Comment on above: Performed By: #### L 100.0100, L501.5200, L501.9520, L500.2500 ####[facility] [address] [place], [address] Magnesium (Unsp spec) [Mass/ Vol]Ordered By: Saul Guzman on 07-31-2024 Magnesium [Mass/Vol] 2.1 mg/dL 1.5-2.2 [facility] Magnesium measurement (mass/ volume)Ordered By: Saul Guzman on 07-31-2024 Magnesium (Unsp spec) [Mass/Vol] 2.1 mg/dL 1.5-2.2 [facility] Mean corpuscular hemoglobin (MCH) determinationOrdered By: Saul Guzman on 07-31-2024 MCH (RBC) [Entitic mass] 31.9 pg 27.0-32.0 [facility] Mean corpuscular hemoglobin concentration (MCHC) determinationOrdered By: Saul Guzman on 07-31-2024 MCHC (RBC) [Mass/Vol] 34.3 g/dL 32-[address] [facility] Mean platelet volume determi nationOrdered By: Saul Guzman on 07-31-2024 Platelet mean volume (Bld) [Entitic vol] 11.0 fL 6.2-12.0 [facility] Monocyte percentageOrdered B y: Saul Guzman on 07-31-2024 Monocytes/100 WBC (Bld) 7.7 % 0-10 [facility] Neutrophil percentageOrdered By: Saul Guzman on 07-31-2024 Neutrophils/100 WBC (Bld) 45.5 % Low 47-70 [facility] Nucleated red blood cell per centageOrdered By: Saul Guzman on 07-31-2024 Nucleated RBC/100 WBC (Bld) [Ratio] 0 % 0-5 [facility] Platelet countOrdered By: Mary Lou Guzman on 07-31-2024 Platelets (Bld) [#/Vol] 320 10*3/uL 150-450 [facility] Potassium (Unsp spec) [Mass/ Vol]Ordered By: Saul Guzman on 07-31-2024 Potassium [Moles/Vol] 4.6 mmol/L 3.3-5.[address] [facility] Comment on above: Hemolysis present, R esults could be affected. Potassium measurement (mass/ volume)Ordered By: Saul Guzman on 07-31-2024 Potassium (Unsp spec) [Mass/Vol] 4.6 mmol/L 3.3-5.1 [facility] Comment on above: Hemolysis present, R esults could be affected. RBC Auto (Bld) [#/Vol]Ordere d By: Saul Guzman on 07-31-2024 RBC (Bld) [#/Vol] 4.61 10*6/uL 4.2-5.4 [facility] Serum creatinine measurement (mass/volume)Ordered By: Saul Guzman on 07-31-2024 Creatinine [Mass/Vol] 1.11 mg/dL 0.70-1.[address] [facility] Serum glucose measurement (m ass/volume)Ordered By: Saul Guzman on 07-31-2024 Glucose [Mass/Vol] 128 mg/dL High 70-99 [facility] Serum or plasma calcium michelle urement (mass/volume)Ordered By: Saul Guzman on 07-31-2024 Calcium [Mass/Vol] 10.1 mg/dL 7.6-11.0 [facility] Serum or plasma urea nitroge n measurement (mass/volume)Ordered By: Saul Guzman on 07-31-2024 Urea nitrogen [Mass/Vol] 28 mg/dL High 4-19 [facility] Sodium levelOrdered By: Rob Guzman on 07-31-2024 Sodium [Moles/Vol] 143 mmol/L 133-145 [facility] TSH DL <= 0.005 mIU/L QnOrde red By: Saul Guzman on 07-31-2024 Thyroid Stimulating Hormone (TSH) 4.480 uIU/mL High 0.300-4.200 [facility] TSH Qn 4.480 uIU/mL High 0.300-4.200 [facility] Thyroid Stim Hormone (TSH)on 07-31-2024 TSH 4.480 uIU/mL High 0.300-4.200 [facility] Comment on above: Performed By: #### L 100.0100, L501.5200, L501.9520, L500.2500 ####[facility] [address] [place], [address] White blood cell (WBC) count Ordered By: Saul Guzman on 07-31-2024 WBC (Bld) [#/Vol] 10.5 10*3/uL 4.4-11.0 [facility] [place] B/L min 2 views w/ Pelv ladan 07-29-2024 Hips B/L min 2 views w/ Pelvis Normal [facility] 12 Lead EKG performed by [facility] on 07-27-2024 12 Lead EKG performed by [facility] Normal [facility] Cardiology Visit Reporton Cardiology Visit Report Normal [facility] CNPNon 07-23-2024 [facility]V[place] Telephone (INTMWS) ELIZABETH PERSAUD ([id number]) 1945 [facility] Date Time Provider Department 07/23/24 DIANNA BALLARD [...] - Vomiting Comments: Ringing in Ears. ENTEX (PHENYLEPHRINE-GUAIFEN ESIN) 03/06/2007 2 - Rash ETODOLAC 07/06/2012 14 [...] Date Reviewed: 07/22/2024 Reviewed by: Dianna Ballard APRN.BOLT SORTER - Fully Assessed Reason for Visit: note [...] 125 mcg two times a day. - fluticasone-umeclidin- vilanter (TRELEGY ELLIPTA) 100-62.5-25 mcg inhalation powder Inhale [...] mg by mouth five times daily. - [id number] ORAL Take by mouth. Problem List As [...] [I73.9] 02 (more content not included)... Normal [facility] CNOVon 07-22-2024 CNOV Office Visit (INTMWS ) HUNGELIZABETH Celsa ([id number]) 1945 F [place] Date Time Provider Department 07/22/24 9:40 AM DIANNA BALLARD During your visit today, we recorded the following information about you: Temperature Pulse Respiration Blood pressure 97.6 degrees 64/minute 16/minute 132/74 Weight 61.7 kg Dianna Ballard APRN.BOLT SORTER 07/22/2024 12:33 PM Signed CC: Patient presents with: Recheck: 1 week follow up HPI Elizabeth Celsa Hung is a 79 year old female who [...] EGD 06/11/2022 EGD TRANSORAL BIOPSY SINGLE/MULTIPLE 02/08/2011 ESOPHAGOGASTRODUODENOS COPY TRANSORAL DIAGNOSTIC 10/06/2013 EGD ESOPHAGOGASTRODUODENOS COPY TRANSORAL DIAGNOSTIC 11/22/2015 EGD ESOPHAGOGASTRODUODENOS COPY TRANSORAL DIAGNOSTIC 02/28/2016 EGD EYE SURGERY HX HERNIA REPAIR HX LIG/TRNSXJ FLP TUBE ABDL/VAG APPR UNI/BI Tubal ligation NEUROPLASTY AND/TRANSPOS MEDIAN NRV CARPAL TUNNE 02/14/2012 Carpal tunnel decomp - right OOPHORECTOMY PARTIAL/TOTAL UNI/BI 07/17/2010 Oophorectomy - left Dr. Manuel Hoover - Dr. Alessio Welch PAST SURGICAL HISTORY OF NECK SURGERY, anterior [...] YRS/> REDUCIBLE 07/17/2010 Hernia repair, umbilical >5yr [facility] Dr Manuel Hoover SHX COSMETIC SURGERY SKIN BIOPSY HX ALLERGIES Cardizem [Diltiazem Hcl], Codeine, Entex [Phenylephrine-Guaifen esin], Etodolac, Meloxicam, Naproxen, Tape [Adhesive Tape (Rosins)], Trazodone, and Zantac [Ranitidine Hcl] MEDICATIONS benzonatate (TESSALON PERLE) 100 mg capsule Take 1 capsule by mouth three times a day as needed. amoxicillin-clavulanat e potassium (AUGMENTIN) 875-125 mg per tablet Take 1 tablet by mouth every 12 hours for 7 days. dofetilide (TIKOSYN) 125 mcg capsule 125 mcg two times a day. fluticasone-umeclidin- vilanter (TRELEGY ELLIPTA) 100-62.5-25 mcg inhalation powder Inhale [...] 10.5 m (more content not included)... Normal [facility] CNOVon 07-15-2024 CNOV Office Visit (INTMWS ) ELIZABETH PERSAUD ([id number]) 1945 F [place][birth year][place] Date Time Provider Department 07/15/24 1:40 PM DIANNA BALLARD During your visit today, we recorded the following information about you: Temperature Pulse Respiration Blood pressure 97.7 degrees 76/minute 16/minute 124/78 Weight 60.8 kg Dianna Ballard APRN.BOLT SORTER 07/15/2024 2:20 PM Signed CC: Patient presents [...] EGD 06/11/2022 EGD TRANSORAL BIOPSY SINGLE/MULTIPLE 02/08/2011 ESOPHAGOGASTRODUODENOS COPY TRANSORAL DIAGNOSTIC 10/06/2013 EGD ESOPHAGOGASTRODUODENOS COPY TRANSORAL DIAGNOSTIC 11/22/2015 EGD ESOPHAGOGASTRODUODENOS COPY TRANSORAL DIAGNOSTIC 02/28/2016 EGD EYE SURGERY HX HERNIA REPAIR HX LIG/TRNSXJ FLP TUBE ABDL/VAG APPR UNI/BI Tubal ligation NEUROPLASTY AND/TRANSPOS MEDIAN NRV CARPAL TUNNE 02/14/2012 Carpal tunnel decomp - right OOPHORECTOMY PARTIAL/TOTAL UNI/BI 07/17/2010 Oophorectomy - left Dr. Manuel Hoover - Dr. Alessio Welch PAST SURGICAL HISTORY OF NECK SURGERY, anterior [...] YRS/> REDUCIBLE 07/17/2010 Hernia repair, umbilical >5yr [facility] Dr Manuel Hoover SHX COSMETIC SURGERY SKIN BIOPSY HX ALLERGIES Cardizem [Diltiazem Hcl], Codeine, Entex [Phenylephrine-Guaifen esin], Etodolac, Meloxicam, Naproxen, Tape [Adhesive Tape (Rosins)], Trazodone, and Zantac [Ranitidine Hcl] MEDICATIONS doxycycline (VIBRA-TABS) 100 mg tablet Take 1 tablet by mouth two times a day for 10 days. dofetilide (TIKOSYN) 125 mcg capsule 125 mcg two times a day. fluticasone-umeclidin- vilanter (TRELEGY ELLIPTA) 100-62.5-25 mcg inhalation powder Inhale [...] mouth two (more content not included)... Normal [facility] CNOVon 07-08-2024 CNOV Office Visit (INTMWS ) HUNGELIZABETH L ([id number]) 1945 F [place] Date Time Provider Department 07/08/24 9:40 AM DIANNA BALLARD During your visit today, we recorded the following information about you: Temperature Pulse Respiration Blood pressure 97.3 degrees 80/minute 16/minute 140/66 Weight 60.3 kg Dianna Ballard APRN.CNP 07/08/2024 2:39 PM Signed CC: Patient presents [...] EGD 06/11/2022 EGD TRANSORAL BIOPSY SINGLE/MULTIPLE 02/08/2011 ESOPHAGOGASTRODUODENOS COPY TRANSORAL DIAGNOSTIC 10/06/2013 EGD ESOPHAGOGASTRODUODENOS COPY TRANSORAL DIAGNOSTIC 11/22/2015 EGD ESOPHAGOGASTRODUODENOS COPY TRANSORAL DIAGNOSTIC 02/28/2016 EGD EYE SURGERY HX HERNIA REPAIR HX LIG/TRNSXJ FLP TUBE ABDL/VAG APPR UNI/BI Tubal ligation NEUROPLASTY AND/TRANSPOS MEDIAN NRV CARPAL TUNNE 02/14/2012 Carpal tunnel decomp - right OOPHORECTOMY PARTIAL/TOTAL UNI/BI 07/17/2010 Oophorectomy - left Dr. Manuel Hoover - Dr. Alessio Welch PAST SURGICAL HISTORY OF NECK SURGERY, anterior [...] YRS/> REDUCIBLE 07/17/2010 Hernia repair, umbilical >5yr [facility] Dr Manuel Hoover SHX COSMETIC SURGERY SKIN BIOPSY HX ALLERGIES Cardizem [Diltiazem Hcl], Codeine, Entex [Phenylephrine-Guaifen esin], Etodolac, Meloxicam, Naproxen, Tape [Adhesive Tape (Rosins)], [...] capsule 125 mcg two times a day. fluticasone-umeclidin- vilanter (TRELEGY ELLIPTA) 100-62.5-25 mcg inhalation powder Inhale 1 Puff as instructed once daily. sucralfate (CARAFATE) 100 mg/mL suspension Take 10 mL by mouth before meals and at bedtime. (560cc=2wks) nystatin (MYCOSTATIN) 100,000 unit/mL suspension Take 5 mL by mouth four times daily. 1tsp swish in mouth for several minutes, then swallow (or expectorate) 4 times (more content not included)... Normal [facility] CT CHEST WO IVCONon 07-06-19 CT CHEST WO IVCON * * *Final Report* * * DATE OF EXAM: Jul 06 2024 12:18PM [facility]CON [...] obtained in 12 months --END OF FINDING-- Manager State: BALJIT Transcribe Date/Time: Jul 12 2024 11:24A Dictated by : ACACIA TORRES MD This examination was interpreted and the report reviewed and electronically signed by: ACACIA TORRES MD on Jul 12 2024 11:35AM EST [id number] [id number] Invalid Interpretation Code [facility] CNOVon 07-05-2024 CNOV Office Visit (UCWSTR ) ELIZABETH PERSAUD ([id number]) 1945 F [place] Date Time Provider Department 07/05/24 3:30 PM NADIR PICKARD [facility] During your visit today, we recorded the following information about you: Temperature Pulse Respiration Blood pressure 99.3 degrees 88/minute 18/minute 146/70 Weight 61.3 kg Nadir Pickard PA-C 07/05/2024 4:25 PM Signed This note was created using Lucky Pai. Subjective Elizabeth Persaud is a 79 year [...] scan chest tomorrow. Patient does have a 25-lcrt-wbcw history of tobacco use and stopped smoking [...] BENZONATATE 100 MG CAPSULE Nadir Pickard PA-C Allergies As of Date: 07/05/2024 Noted Allergy Reaction CARDIZEM (DILTIAZEM HCL) 01/18/2015 7 - Swelling CODEINE 01/21/2006 11 - Vomiting Comments: Ringing in Ears. ENTEX (PHENYLEPHRINE-GUAIFEN ESIN) 03/06/2007 2 - Rash ETODOLAC 07/06/2012 14 [...] infectious organism [J18.9] Order(s):XR CHEST 2V FRONTAL/LAT [[id number]] Order #: [id number]. #:[id number] doxycycline (VIBRA-TABS) 100 mg tabletTake 1 tablet by mouth two times a day for 10 days.Disp: 20 tabletRfl: 0 benzonatate (TESSALON PERLE) 100 mg capsuleTake 1 capsule by mouth three times a day as needed for cough for up to 7 days.Disp: 21 capsuleRfl: 0 Prescriptions as of 07/05/2024 - doxycycline (more content not included)... Normal [facility] XR CHEST 2V FRONTAL/LATon XR CHEST 2V FRONTAL/LAT * * *Final Repor t* * * DATE OF EXAM: Jul 05 [...] overlying the right upper lung. Consider follow-up. Manager State: BALJIT Transcribe Date/Time: Jul 05 2024 3:51P Dictated by : PRESTON AL MD This examination was interpreted and the report reviewed and electronically signed by: PRESTON AL MD on Jul 05 2024 3:57PM EST [id number] Normal [facility] XR Chest PA and Lateralon IMPRESSION: Questionable small hazy opacity overlying the right upper lung. Consider follow-up. Manager State: PSCRashaun Transcribe Date/Time: Jul 05 2024 3:51P Dictated [...] cervical spinal fusion. DIVISION OF RADIOLOGY Provider, [facility] - 07/05/2024 * * *Final Report* * [...] overlying the right upper lung. Consider follow-up. Manager State: BALJIT Transcribe Date/Time: Jul 05 2024 3:51P Dictated by : PRESTON AL MD This examination was interpreted and the report reviewed and electronically signed by: PRESTON AL MD on Jul 05 2024 3:57PM EST [facility] Radiology Study observation (narrative) Eddie lawson [facility] XR Chest PA and LateralOrder ed By: [facility] Provider on 07-05-2024 [facility] CNPNon 06-22-2024 CNPN Telephone (PULMWS) ELIZABETH PERSAUD ([id number]) 1945 F [facility] Date Time Provider Department 06/22/24 LAITH MONTES PULCandeWS During your visit today, we recorded the [...] - Vomiting Comments: Ringing in Ears. ENTEX (PHENYLEPHRINE-GUAIFEN ESIN) 03/06/2007 2 - Rash ETODOLAC 07/06/2012 14 [...] Primary Visit Diagnosis:Lung nodules [R91.8] Other Visit Diagnoses:Centrilobula r emphysema (HCC) [J43.2] Former cigarette smoker [Z87.891] Order(s):CT CHEST WO IVCON [[id number]] Order #: [id number] FUTURE Prescriptions as of 06/22/2024 - dofetilide (TIKOSYN) 125 mcg capsule 125 mcg two times a day. - fluticasone-umeclidin- vilanter (TRELEGY ELLIPTA) 100-62.5-25 mcg inhalation powder Inhale [...] mg by mouth five times daily. - CNHCIEB-SVANPEYXF-TOJE ORAL Take by mouth. 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 Normal [facility] CNOVon 06-17-2024 CNOV Office Visit (PULMWS ) ELIZABETH PERSAUD ([id number]) 1945 F [place] Date Time Provider Department 06/17/24 10:00 AM LAITH MONTES PULMSERVANDO During your visit today, we recorded the following information about you: Pulse Respiration Blood pressure Weight 62/minute 16/minute 138/70 59.4 kg Laith Montes MD 06/17/2024 12:38 PM Signed . Respiratory [place] Note Patient name: Elizabeth Persaud PCP: Minerva [...] mg tab(s) Take by mouth twice daily. fluticasone-umeclidin- vilanter (TRELEGY ELLIPTA) 100-62.5-25 mcg inhalation powder Inhale [...] 1,000 mg by mouth five times daily. GOSGUPA-PUOZSXERS-WTQE ORAL Take by (more content not included)... Normal [facility] Basic Metabolic Profile (BMP )on 05-26-2024 BUN/CRE 37.0 RATIO High 02-28 [facility] Comment on above: Performed By: #### L 500.2500, L100.0100, L501.9520, L501.5200 ####[facility] [address] [place], [address] CA,Total 9.8 mg/dL Normal 8.5-10.1 [facility] Comment on above: Performed By: #### L 500.2500, L100.0100, L501.9520, L501.5200 ####[facility] [address] [place], [address] Chloride [Moles/Vol] 103 mmol/L Normal 98-107 [facility] Comment on above: Performed By: #### L 500.2500, L100.0100, L501.9520, L501.5200 ####[facility] [address] [place], [address] CO2 [Moles/Vol] 28.0 mmol/L Normal 21.0-32.0 [facility] Comment on above: Performed By: #### L 500.2500, L100.0100, L501.9520, L501.5200 ####[facility] [address] [place], [address] Creatinine [Mass/Vol] 0.95 mg/dL Normal 0.55-1.[address] [facility] Comment on above: Result Comment: The validity of the calculated GFR GFRAA in patients over70 years has not been determined. Clinical correlation isessential. Performed By: #### L 500.2500, L100.0100, L501.9520, L501.5200 ####[facility] [address] [place], [address] ECRCL 39.22 ml/min Normal [facility] Comment on above: Performed By: #### L 500.2500, L100.0100, L501.9520, L501.5200 ####[facility] [address] [place], [address] EST GFR - AA 74 mL/min Normal >60 [facility] Comment on above: Result Comment: Afri can Cambodian GFR Calc Performed By: #### L 500.2500, L100.0100, L501.9520, L501.5200 ####[facility] [address] [place], [address] GAP 8 Normal 5-15 [facility] Comment on above: Performed By: #### L 500.2500, L100.0100, L501.9520, L501.5200 ####[facility] [address] [place], [address] GFR/1.73 sq M.predicted among non-blacks MDRD (S/P/Bld) [Vol rate/Area] 61 mL/min/{1.73_m2} Normal >60 [facility] Comment on above: Result Comment: Non- GFR Calc Performed By: #### L 500.2500, L100.0100, L501.9520, L501.5200 ####[facility] [address] [place], [address] Glucose [Mass/Vol] 122 mg/dL High 74-106 [facility] Comment on above: Result Comment: Fast ing Glucose result from 100 to 125 mg/dLsuggests IMPAIRED HOMEOSTASIS per A.D.A. criteria. Performed By: #### L 500.2500, L100.0100, L501.9520, L501.5200 ####[facility] [address] [place], [address] Potassium [Moles/Vol] 3.4 mmol/L Low 3.5-5.[address] [facility] Comment on above: Performed By: #### L 500.2500, L100.0100, L501.9520, L501.5200 ####[facility] [address] [place], [address] Sodium [Moles/Vol] 139 mmol/L Normal 136-145 [facility] Comment on above: Performed By: #### L 500.2500, L100.0100, L501.9520, L501.5200 ####[facility] [address] [place], [address] Urea nitrogen [Mass/Vol] 35 mg/dL High 7-18 [facility] Comment on above: Performed By: #### L 500.2500, L100.0100, L501.9520, L501.5200 ####[facility] [address] [place], [address] CBC W/Diff, Automatedon 05-12-2024 Absolute Lymph 3.33 X10 3/uL Normal 0.83-4.51 [facility] Comment on above: Performed By: #### L 500.2500, L100.0100, L501.9520, L501.5200 ####[facility] [address] [place], [address] Absolute Neut 4.3 X10 3/uL Normal 2.0-7.7 [facility] Comment on above: Performed By: #### L 500.2500, L100.0100, L501.9520, L501.5200 ####[facility] [address] [place], [address] Basophils/100 WBC (Bld) 0.3 % Normal 0-1 [facility] Comment on above: Performed By: #### L 500.2500, L100.0100, L501.9520, L501.5200 ####[facility] [address] [place], [address] Eosinophils/100 WBC (Bld) 2.5 % Normal 0-5 [facility] Comment on above: Performed By: #### L 500.2500, L100.0100, L501.9520, L501.5200 ####[facility] [address] [place], [address] Erythrocyte distribution width (RBC) [Ratio] 13.5 % Normal 11.6-14.6 [facility] Comment on above: Performed By: #### L 500.2500, L100.0100, L501.9520, L501.5200 ####[facility] [address] [place], [address] Hematocrit (Bld) [Volume fraction] 40.7 % Normal 37-47 [facility] Comment on above: Performed By: #### L 500.2500, L100.0100, L501.9520, L501.5200 ####[facility] [address] [place], [address] Hemoglobin (Bld) [Mass/Vol] 13.7 g/dL Normal 12.0-15.0 [facility] Comment on above: Performed By: #### L 500.2500, L100.0100, L501.9520, L501.5200 ####[facility] [address] [place], [address] IG% 0.900 Normal 0.0-0.9 [facility] Comment on above: Result Comment: IG% - Immature Granulocytes (promyelocytes, myelocytes andmetamyelocytes) > 1% indicates that a LEFT SHIFT is Present. Performed By: #### L 500.2500, L100.0100, L501.9520, L501.5200 ####[facility] [address] [place], [address] Lymphocytes/100 WBC (Bld) 38.6 % Normal 19-41 [facility] Comment on above: Performed By: #### L 500.2500, L100.0100, L501.9520, L501.5200 ####[facility] [address] [place], [address] MCH (RBC) [Entitic mass] 30.7 pg Normal 27.0-32.0 [facility] Comment on above: Performed By: #### L 500.2500, L100.0100, L501.9520, L501.5200 ####[facility] [address] [place], [address] MCHC (RBC) [Mass/Vol] 33.7 g/dL Normal 32-[address] [facility] Comment on above: Performed By: #### L 500.2500, L100.0100, L501.9520, L501.5200 ####[facility] [address] [place], [address] MCV (RBC) [Entitic vol] 91.3 fL Normal 81-99 [facility] Comment on above: Performed By: #### L 500.2500, L100.0100, L501.9520, L501.5200 ####[facility] [address] [place], [address] Monocytes/100 WBC (Bld) 7.6 % Normal 0-10 [facility] Comment on above: Performed By: #### L 500.2500, L100.0100, L501.9520, L501.5200 ####[facility] [address] [place], [address] Neutrophils/100 WBC (Bld) 50.1 % Normal 47-70 [facility] Comment on above: Performed By: #### L 500.2500, L100.0100, L501.9520, L501.5200 ####[facility] [address] [place], [address] Nucleated RBC (Bld) [#/Vol] 0 10*3/uL Normal 0-5 [facility] Comment on above: Performed By: #### L 500.2500, L100.0100, L501.9520, L501.5200 ####[facility] [address] [place], [address] Platelet mean volume (Bld) [Entitic vol] 10.0 fL Normal 6.2-12.0 [facility] Comment on above: Performed By: #### L 500.2500, L100.0100, L501.9520, L501.5200 ####[facility] [address] [place], [address] Platelets (Bld) [#/Vol] 332 10*3/uL Normal 150-450 [facility] Comment on above: Performed By: #### L 500.2500, L100.0100, L501.9520, L501.5200 ####[facility] [address] [place], [address] RBC (Bld) [#/Vol] 4.46 10*6/uL Normal 4.2-5.4 [facility] Comment on above: Performed By: #### L 500.2500, L100.0100, L501.9520, L501.5200 ####[facility] [address] [place], [address] RDW SD 45.1 fl High 35.1-43.9 [facility] Comment on above: Performed By: #### L 500.2500, L100.0100, L501.9520, L501.5200 ####[facility] [address] [place], [address] WBC (Bld) [#/Vol] 8.6 10*3/uL Normal 4.4-11.0 [facility] Comment on above: Performed By: #### L 500.2500, L100.0100, L501.9520, L501.5200 ####[facility] [address] [place], [address] CNPCathy 05-26-2024 ALVINO Telephone (INTMWS) ELIZABETH PERSAUD ([id number]) 1945 F [place] Date Time Provider Department 05/26/24 MINERVA SHAVER INTCHAIM During your visit today, we recorded the following information about you: Weight 59.9 kg Veronica Villar LPN 05/26/2024 9:42 AM Signed [facility] [employer] calling to let you know pt was in the [facility] for A-Fib. thru 04-17-24. Per Kayden it [...] stated Anticoagulant is being managed by her Unleavened Dough Mixer, Dr Ibarra. Patient states will be following up with Nagi Sharma WORSHIP LEADER with [facility]. Brit Burnham LPN May 27, 2024 9:49 AM Minerva Shaver MD 05/28/2024 6:04 AM Signed Thank you , as a favor to me could you please ask the patient before it coming to me, jacqueline If someone has a marker shipments ask the patient who wpuld be managing inr for afib or valvular issues Regards, Minerva Shaver MD Allergies As of Date: 05/26/2024 Noted Allergy Reaction CARDIZEM (DILTIAZEM HCL) 01/18/2015 7 - Swelling CODEINE 01/21/2006 11 - Vomiting Comments: Ringing in Ears. ENTEX (PHENYLEPHRINE-GUAIFEN ESIN) 03/06/2007 2 - Rash ETODOLAC 07/06/2012 14 [...] Fully Assessed Reason for Visit: Medication Question [1478] Prescriptions as of 05/28/2024 - nystatin (MYCOSTATIN) [...] by mouth two times a day. - fluticasone-umeclidin- vilanter (TRELEGY ELLIPTA) 100-62.5-25 mcg inhalation powder Inhale [...] mg by mouth five times daily. - RBGQMCH-JGKZZFTLK-KFOS ORAL Take by mouth. Problem List As [...] 06/09/2013 H (more content not included)... Normal [facility] Emergency Department Summary on 05-26-2024 Emergency Department Summary Normal [facility] Magnesiumon 05-26-2024 Magnesium [Mass/Vol] 2.0 mg/dL Normal 1.6-2.6 [facility] Comment on above: Performed By: #### L 500.2500, L100.0100, L501.9720, L501.5200 ####[facility] [address] [place], [place], [id number] Thyroid Stim Hormone (TSH)on 05-26-2024 TSH 4.880 uIU/mL High 0.358-3.740 [facility] Comment on above: Performed By: #### L 500.2500, L100.0100, L501.9500, L501.5200 ####[facility] [address] [place], [address] Absolute lymphocyte countOrd ered By: Saul Guzman on 05-25-2024 Lymphocytes Auto (Unsp spec) [#/Vol] 3.33 10*3/uL 0.83-4.51 [facility] Absolute neutrophil countOrd ered By: Saul Guzman on 05-25-2024 Neutrophils (Bld) [#/Vol] 4.3 10*3/uL 2.0-7.7 [facility] Automated lymphocyte count a s percentage of total leukocytesOrdered By: Saul Guzman on 05-25-2024 Lymphocytes/100 WBC Auto (Unsp spec) 38.6 % 19-41 [facility] Basophil percentageOrdered B y: Saul Guzman on 05-25-2024 Basophils/100 WBC (Bld) 0.3 % 0-1 [facility] Blood urea nitrogen (BUN)/cr eatinine ratioOrdered By: Saul Guzman on 05-25-2024 Urea nitrogen/Creatinine [Mass ratio] 37.0 mg/mg High 10-20 [facility] Carbon dioxide measurementOr dered By: Saul Guzman on 05-25-2024 CO2 [Moles/Vol] 28.0 mmol/L 21.0-32.0 [facility] Chloride measurementOrdered By: Saul Guzman on 05-25-2024 Chloride [Moles/Vol] 103 mmol/L 98-107 [facility] Eosinophil percentageOrdered By: Saul Guzman on 05-25-2024 Eosinophils/100 WBC (Bld) 2.5 % 0-5 [facility] Erythrocyte distribution wid th ratioOrdered By: Saul Guzman on 05-25-2024 Erythrocyte distribution width (RBC) [Ratio] 13.5 % 11.6-14.6 [facility] Erythrocyte distribution wid th standard deviationOrdered By: Saul Guzman on 05-25-2024 Erythrocyte distribution width (RBC) [Entitic vol] 45.1 fL High 35.1-43.9 [facility] Erythrocyte distribution width (RBC) [Ratio] 45.1 fl High 35.1-43.9 [facility] Estimated glomerular filtrat ion rate (GFR) AmericanOrdered By: Saul Guzman on 05-25-2024 Estimated GFR (MDRD) Amer 74 mL/min >60 [facility] Comment on above: GFR Calc Estimation of creatinine shirin aranceOrdered By: Saul Guzman on 05-25-2024 Estimated Creatinine Clearance Calc 39.22 ml/min [facility] Glomerular filtration rate ( GFR) estimationOrdered By: Saul Guzman on 05-25-2024 Estimated GFR (MDRD) Non-Af Amer 61 mL/min >60 [facility] Comment on above: Non- GFR Calc GFR/1.73 sq M.predicted among non-blacks MDRD (S/P/Bld) [Vol rate/Area] 61 mL/min/{1.73_m2} >60 [facility] Comment on above: Non- GFR Calc Glucose measurementOrdered B y: Saul Guzman on 05-25-2024 Glucose [Mass/Vol] 122 mg/dL High 74-106 [facility] Comment on above: Fasting Glucose resu lt from 100 to 125 mg/dL suggests IMPAIRED HOMEOSTASIS per A.D.A. criteria. Hematocrit Auto (Bld) [Volum e fraction]Ordered By: Saul Guzman on 05-25-2024 Hematocrit (Bld) [Volume fraction] 40.7 % 37-47 [facility] Hemoglobin measurementOrdere d By: Saul Guzman on 05-25-2024 Hemoglobin (Bld) [Mass/Vol] 13.7 g/dL 12.0-15.0 [facility] Immature granulocytes/100 WB C Auto (Bld)Ordered By: Saul Guzman on 05-25-2024 Immature granulocytes/100 WBC (Bld) 0.900 % 0.0-0.9 [facility] Comment on above: IG% - Immature Granu locytes (promyelocytes, myelocytes and metamyelocytes) > 1% indicates that a LEFT SHIFT is Present. Lymphocytes Auto (Unsp spec) [#/Vol]Ordered By: Saul Guzman on 05-25-2024 Lymphocytes (Bld) [#/Vol] 3.33 10*3/uL 0.83-4.51 [facility] Lymphocytes/100 WBC Auto (Un sp spec)Ordered By: Saul Guzman on 05-25-2024 Lymphocytes/100 WBC (Bld) 38.6 % 19-41 [facility] MCV (mean corpuscular volume ) determinationOrdered By: Saul Guzman on 05-25-2024 MCV (RBC) [Entitic vol] 91.3 fL 81-99 [facility] Magnesium measurementOrdered By: Saul Guzman on 05-25-2024 Magnesium [Mass/Vol] 2.0 mg/dL 1.6-2.6 [facility] Mean corpuscular hemoglobin (MCH) determinationOrdered By: Saul Guzman on 05-25-2024 MCH (RBC) [Entitic mass] 30.7 pg 27.0-32.0 [facility] Mean corpuscular hemoglobin concentration (MCHC) determinationOrdered By: Saul Guzman on 05-25-2024 MCHC (RBC) [Mass/Vol] 33.7 g/dL 32-[address] [facility] Mean platelet volume determi nationOrdered By: Saul Guzman on 05-25-2024 Platelet mean volume (Bld) [Entitic vol] 10.0 fL 6.2-12.0 [facility] Monocyte percentageOrdered B y: Saul Guzman on 05-25-2024 Monocytes/100 WBC (Bld) 7.6 % 0-10 [facility] Neutrophil percentageOrdered By: Saul Guzman on 05-25-2024 Neutrophils/100 WBC (Bld) 50.1 % 47-70 [facility] Nucleated red blood cell per centageOrdered By: Saul Guzman on 05-25-2024 Nucleated RBC/100 WBC (Bld) [Ratio] 0 % 0-5 [facility] Platelet countOrdered By: Mary Lou Guzman on 05-25-2024 Platelets (Bld) [#/Vol] 332 10*3/uL 150-450 [facility] Potassium measurementOrdered By: Saul Guzman on 05-25-2024 Potassium [Moles/Vol] 3.4 mmol/L Low 3.5-5.[address] [facility] RBC Auto (Bld) [#/Vol]Ordere d By: Saul Guzman on 05-25-2024 RBC (Bld) [#/Vol] 4.46 10*6/uL 4.2-5.4 [facility] Serum anion gap measurementO rdered By: Saul Guzman on 05-25-2024 Anion gap [Moles/Vol] 8 mmol/L 5-[address] [facility] Serum or plasma calcium michelle urement (mass/volume)Ordered By: Saul Guzman on 05-25-2024 Calcium [Mass/Vol] 9.8 mg/dL 8.5-10.1 [facility] Serum or plasma creatinine m easurement (mass/volume)Ordered By: Saul Guzman on 05-25-2024 Creatinine [Mass/Vol] 0.95 mg/dL 0.55-1.[address] [facility] Comment on above: The validity of the calculated GFR & GFRAA in patients over 70 years has not been determined. Clinical correlation is essential. Serum or plasma thyroid stim ulating hormone (TSH) measurement (units/volume)Ordered By: Saul Guzman on 05-25-2024 TSH Qn 4.880 uIU/mL High 0.358-3.740 [facility] Serum or plasma urea nitroge n measurement (mass/volume)Ordered By: Saul Guzman on 05-25-2024 Urea nitrogen [Mass/Vol] 35 mg/dL High 7-18 [facility] Sodium levelOrdered By: Rob Guzamn on 05-25-2024 Sodium [Moles/Vol] 139 mmol/L 136-145 [facility] TSH QnOrdered By: Long on 05-25-2024 Thyroid Stimulating Hormone (TSH) 4.880 uIU/mL High 0.358-3.740 [facility] White blood cell (WBC) count Ordered By: Saul Guzman on 05-25-2024 WBC (Bld) [#/Vol] 8.6 10*3/uL 4.4-11.0 [facility] Cardiology Visit Reporton Cardiology Visit Report Normal W [facility] EP CARDIOVERSION EXTERNALon 04-23-2024 EP CARDIOVERSION [...] x1. DCCV to sinus rhythm performed 3D electroanatomic/voltag e mapping using a Penta-ray catheter (Pocket Change) was used to create an anatomical shell [...] in 6-8 weeks . Follow up with WORSH[facility]ER in 3-4 months. Table formatting from the original result was not included. Images from the original result were not included. Elizabeth Persaud EP Procedure - EPS/Ablation/Device Ordering Physician: ALLI HERNANDEZ Order #: [id number] Study Date: 04/22/2024 Patient Information Name MRN Description Elizabeth Persaud [id number] 78 y.o. female Physicians Panel Physicians Referring [...] x1. DCCV to sinus rhythm performed 3D electroanatomic/voltag e mapping using a Penta-ray catheter (Carto) was used to create an anatomical shell [...] node ph (more content not included)... Normal [facility] EP PROCEDURE - EPS/ABLATION/ DEVICEon 04-23-2024 EP [...] x1. DCCV to sinus rhythm performed 3D electroanatomic/voltag e mapping using a Penta-ray catheter (Pocket Change) was used to create an anatomical shell [...] in 6-8 weeks . Follow up with WORSHIP LEADER in 3-4 months. Table formatting from the original result was not included. Images from the original result were not included. Elizabeth Persaud EP Procedure - EPS/Ablation/Device Ordering Physician: ALLI HERNANDEZ Order #: [id number] Study Date: 04/22/2024 Patient Information Name MRN Description Elizabeth Persaud [id number] 78 y.o. female Physicians Panel Physicians Referring [...] x1. DCCV to sinus rhythm performed 3D electroanatomic/voltag e mapping using a Penta-ray catheter (Carto) was used to create an anatomical shell [...] node ph (more content not included)... Normal [facility] ACT* LOW RANGE, POCon 2023 ACT LOW RANGE, POC 356.0 High [facility] Interpretation and review of laboratory results Abnormal [facility] Test performed at address of the patient encounter. [facility] ACT LOW RANGE, POC 392.0 High [facility] Interpretation and review of laboratory results Abnormal [facility] Test performed at address of the patient encounter. [facility] ACT LOW RANGE, POC [facility] Comment on above: Out of Range High. The test result is outside clinical range and should not be used for patient-management decisions. Test performed at address of the patient encounter. [facility] PT,INR,PTTon 04-22-2024 aPTT Coag (PPP) [Time] 29.5 s [place] INR Coag (Bld) [Relative time] 1.2 {INR} High 0.9 - 1.1 [facility] Interpretation and review of laboratory results Abnormal [facility] PT Coag (PPP) [Time] 15.[address] [facility] aPTT Coag (Bld) [Time] 29.5 s Normal 24.0-34.3 [facility] Comment on above: Performed By: #### I PB, ABRIL, ARLENT #### [facility] (DEFAULT) [address] [place] [address] 85697 INR Coag (PPP) [Relative time] 1.2 {INR} High 0.9-1.1 [facility] Comment on above: Performed By: #### I PB, MGO, HDLT #### [facility] (DEFAULT) [address] [place] [address] 50298 PT Coag (PPP) [Time] 15.4 s High 11.9-14.2 [facility] Comment on above: Performed By: #### I PB, MGO, HDLT #### [facility] (DEFAULT) [address] [place] [address] 41285 CBC AND ELECTRONIC DIFFon Abs Baso Auto < Normal 0.00-0.15 [facility] Comment on above: Performed By: #### I PB, MGO, HDLT #### [facility] (DEFAULT) [address] [place] [address] 90490 Basophils/100 WBC (Bld) 0.3 % Normal [facility] Comment on above: Performed By: #### I PB, MGO, HDLT #### [facility] (DEFAULT) [address] [place] [address] 85853 DIFF STATUS Electronic Differential Normal [facility] Comment on above: Performed By: #### I PB, MGO, HDLT #### [facility] (DEFAULT) [address] [place] [address] 35584 Eosinophils (Bld) [#/Vol] 0.24 10*3/uL Normal 0.00-0.42 [facility] Comment on above: Performed By: #### I PB, MGO, HDLT #### [facility] (DEFAULT) [address] [place] [address] 10404 Eosinophils/100 WBC (Bld) 2.6 % Normal [facility] Comment on above: Performed By: #### I PB, MGO, HDLT #### [facility] (DEFAULT) [address] [place] [address] 39926 Hematocrit (Bld) [Volume fraction] 45.4 % High 34.9-44.3 [facility] Comment on above: Performed By: #### I PB, MGO, HDLT #### [facility] (DEFAULT) [address] [place] [address] 50119 Hemoglobin (Bld) [Mass/Vol] 15.1 g/dL Normal 11.4-15.2 [facility] Comment on above: Performed By: #### I PB, MGO, HDLT #### [facility] (DEFAULT) [address] [place] [address] 01375 Immature Grans % 0.5 % Normal [facility] Comment on above: Performed By: #### I PB, MGO, HDLT #### [facility] (DEFAULT) [address] [place] [address] 25222 Immature Grans Absolute 0.05 K/uL Normal <=0.08 O [facility] Comment on above: Performed By: #### I PB, MGO, HDLT #### [facility] (DEFAULT) [address] [place] [address] 19362 Lymphocytes (Bld) [#/Vol] 2.89 10*3/uL Normal 1.16-3.51 [facility] Comment on above: Performed By: #### I PB, MGO, HDLT #### [facility] (DEFAULT) [address] [place] [address] 79783 Lymphocytes/100 WBC (Bld) 30.9 % Normal [facility] Comment on above: Performed By: #### I PB, MGO, HDLT #### [facility] (DEFAULT) [address] [place] [address] 61673 MCV (RBC) [Entitic vol] 92.1 fL Normal 79.6-97.7 O [facility] Comment on above: Performed By: #### I PB, MGO, HDLT #### [facility] (DEFAULT) [address] [place] [address] 53504 Mean Cell Hgb 30.6 pg Normal 25.9-33.9 [facility] Comment on above: Performed By: #### I PB, MGO, HDLT #### [facility] (DEFAULT) [address] [place] [address] 04353 Mean Cell Hgb Conc 33.3 g/dL Normal 31.4-35.9 [facility] Comment on above: Performed By: #### I PB, MGO, HDLT #### [facility] (DEFAULT) [address] [place] [address] 43014 Monocytes (Bld) [#/Vol] 0.88 10*3/uL High 0.22-0.87 [facility] Comment on above: Performed By: #### I PB, MGO, HDLT #### [facility] (DEFAULT) [address] [place] [address] 36663 Monocytes/100 WBC (Bld) 9.4 % Normal O [facility] Comment on above: Performed By: #### I PB, MGO, HDLT #### [facility] (DEFAULT) [address] [place] [address] 89098 Nucleated RBC 0.0 /100 WBC Normal <=0.2 [facility] Comment on above: Performed By: #### I PB, MGO, HDLT #### [facility] (DEFAULT) [address] [place] [address] 79534 Platelet mean volume (Bld) [Entitic vol] 10.0 fL Normal 8.5-12.2 [facility] Comment on above: Performed By: #### I PB, MGO, HDLT #### [facility] (DEFAULT) [address] [place] [address] 39155 Platelets (Bld) [#/Vol] 275 10*3/uL Normal 150-393 [facility] Comment on above: Performed By: #### I PB, MGO, HDLT #### [facility] (DEFAULT) [address] [place] [address] 56307 RBC (Bld) [#/Vol] 4.93 10*6/uL Normal 3.91-5.04 [facility] Comment on above: Performed By: #### I PB, MGO, HDLT #### [facility] (DEFAULT) [address] [place] [address] 25992 RBC Distribution 12.6 % Normal 10.8-14.9 [facility] Comment on above: Performed By: #### I PB, MGO, HDLT #### [facility] (DEFAULT) [address] [place] [address] 29554 Segs + Bands Auto 56.3 % Normal [facility] Comment on above: Performed By: #### I PB, MGO, HDLT #### [facility] (DEFAULT) [address] [place] [address] 93254 Segs + Bands,Absolute Auto 5.26 K/uL Normal 1.64-7.28 [facility] Comment on above: Performed By: #### I PB, MGO, HDLT #### [facility] (DEFAULT) [address] [place] [address] 80818 WBC (Bld) [#/Vol] 9.35 10*3/uL Normal 3.99-11.19 [facility] Comment on above: Performed By: #### I PB, MGO, HDLT #### [facility] (DEFAULT) [address] [place] [address] 78820 CHEM 6 (LYTES, BUN CREA)on 1 06-22-2023 Anion gap [Moles/Vol] 15 mmol/L Normal 7-17 [facility] Comment on above: Performed By: #### L AB980 #### [facility] (DEFAULT) [address] [place] [address] 61862 Chloride [Moles/Vol] 104 mmol/L Normal 98-108 [facility] Comment on above: Performed By: #### L AB980 #### [facility] (DEFAULT) [address] [place] [address] 52229 CO2 [Moles/Vol] 29 mmol/L Normal 21-31 [facility] Comment on above: Performed By: #### L AB980 #### [facility] (DEFAULT) [address] [place] [address] 23666 Creatinine [Mass/Vol] 0.93 mg/dL Normal 0.50-1.20 [facility] Comment on above: Performed By: #### L AB980 #### [facility] (DEFAULT) [address] [place] [address] 33832 GFR/1.73 sq M.predicted among non-blacks MDRD (S/P/Bld) [Vol rate/Area] 64 mL/min/{1.73_m2} Normal >=60 [facility] Comment on above: Result Comment: Repo rted eGFR is based on the CKD-EPI 2020 equation using creatinine, age, and sex. Performed By: #### L AB980 #### [facility] (DEFAULT) [address] [place] [address] 43348 Potassium [Moles/Vol] 5.0 mmol/L Normal 3.5-5.0 [facility] Comment on above: Performed By: #### L AB980 #### [facility] (DEFAULT) [address] [place] [address] 42639 Sodium [Moles/Vol] 143 mmol/L Normal 135-145 [facility] Comment on above: Performed By: #### L AB980 #### [facility] (DEFAULT) [address] [place] [address] 88078 Urea nitrogen [Mass/Vol] 19 mg/dL Normal 7-25 [facility] Comment on above: Performed By: #### L AB980 #### [facility] (DEFAULT) [address] [place] [address] 90049 Urea nitrogen/Creatinine [Mass ratio] 20 mg/mg Normal [facility] Comment on above: Performed By: #### L AB980 #### [facility] (DEFAULT) [id number] CARDIAC PULMONARY VENOGRA [facility] 04-21-2024 CT CARDIAC PULMONARY VENOGRAM [facility] CT Report Name: ELIZABETH PERSAUD : 1945 [...] cm SCAN INFO TEST TYPE: Venogram 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: [employer] SCANNER MODEL: NAEOTOM Alpha DOSE REDUCTION ALGORITHM: Helical with dose modulation SCAN COVERAGE ZONE: Pulmonary Veins/EVITA EKG GATED: No GENERAL CONTRAST AGENT -- CONTRAST AGENT USED?: Yes TYPE: Omnipaque 350 DOSE: 50 ml RATE: 4 ml/s ROUTE: IV BOLUS TECHNIQUE: Biphasic SCAN DELAY TIME METHOD: Bolus Track SERUM CREATININE: 0.87 mg/dL GFR: 67.28 ml/min/1.73m^2 CREATININE DATE: CT CONTRAST REACTION: None RADIATION DOSE -- DLP: 80 SETUP -- DATE OF EVENT: SCAN TYPE: Clinical PATIENT TYPE: Outpatient REASON(S) FOR SCAN: EP procedure planning REFERRING PHYSICIAN: 1) Alli Hernandez ATTENDING PHYSICIAN: ROZ DIXON TECHNOLOGIST: Manuel Reid Patient Account [id number] CPT Codes 80677 ICD10 Codes I48.19 Report generated by [employer], a product of [employer] Normal [facility] Chest>Heart.atrium.left+Pulm onary veins CT angiogram and 3D reconstruction W contrast Kvng 04-21-[address] [facility] [address] Report Name: ELIZABETH PERSAUD : 1945 [...] cm SCAN INFO TEST TYPE: Venogram 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 OPERATOR: [employer] SCANNER MODEL: NAEOTOM Alpha DOSE REDUCTION ALGORITHM: Helical with dose modulation SCAN COVERAGE ZONE: Pulmonary Veins/EVITA EKG GATED: No GENERAL CONTRAST AGENT -- CONTRAST AGENT USED?: Yes TYPE: Omnipaque 350 DOSE: 50 ml RATE: 4 ml/s ROUTE: IV BOLUS TECHNIQUE: Biphasic SCAN DELAY TIME METHOD: Bolus Track SERUM CREATININE: 0.87 mg/dL GFR: 67.28 ml/min/1.73m^2 CREATININE DATE: CT CONTRAST REACTION: None RADIATION DOSE -- DLP: 80 SETUP -- DATE OF EVENT: SCAN TYPE: Clinical PATIENT TYPE: Outpatient REASON(S) FOR SCAN: EP procedure planning REFERRING PHYSICIAN: 1) Alli Hernandez ATTENDING PHYSICIAN: ROZ DIXON TECHNOLOGIST: Manuel Reid Patient Account [id number] CPT Codes 37273 ICD10 Codes I48.19 Report generated by [employer], a product of [employer] CARDIOLOGY Roz Dixon, DO - 04/21/[address] [facility] [address] Report Name: ELIZABETH PERSAUD : 1945 Scan Date: 2024-04-21 16:07:58 Electronically signed by Roz Dixon 16:45:18 VITALS ========= ========= HEIGHT: 61 in (154.94 cm) WEIGHT: 129.00 lbs (58.51 kgs) BSA: 1.57 m^2 BMI: 24 kg/m^2 BP: 114 / 80 mmHg BASELINE HR: 105 BPM FINAL IMPRESSION ========= ========= 78 y/o/f hx HFmrEF, HTN, 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 Mildly delayed EVIAT contrast opacification. No LA/EVITA thrombus. STUDY QUALITY: Study quality is good. OTHER FINDINGS: Aortic calcifications. Small pulmonary nodules across both lobes <3 mm. PULMONARY VEIN ========= ========= LEFT ATRIAL APPENDAGE: No Thrombus LEFT SIDE MEASUREMENTS --------- COMMON DIMENSIONS: 2.6 cm COMMON DIMENSIONS (2): 1.7 cm RIGHT SIDE MEASUREMENTS --------- UPPER DIMENSIONS: 1.9 cm UPPER DIMENSIONS (2): 1.6 cm LOWER DIMENSIONS: 1.7 cm LOWER DIMENSIONS (2): 1.4 cm SCAN INFO ========= ========= TEST TYPE: Venogram 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 OPERATOR: [employer] SCANNER MODEL: NAEOTOM Alpha DOSE REDUCTION ALGORITHM: Helical with dose modulation SCAN COVERAGE ZONE: Pulmonary Veins/EVITA EKG GATED: No GENERAL --------- CONTRAST AGENT -- CONTRAST AGENT USED?: Yes TYPE: Omnipaque 350 DOSE: 50 ml RATE: 4 ml/s ROUTE: IV BOLUS TECHNIQUE: Biphasic SCAN DELAY TIME METHOD: Bolus Track SERUM CREATININE: 0.87 mg/dL GFR: 67.28 ml/min/1.73m^2 CREATININE DATE: CT CONTRAST REACTION: None RADIATION DOSE -- DLP: 80 SETUP -- DATE OF EVENT: SCAN TYPE: Clinical PATIENT TYPE: Outpatient REASON(S) FOR SCAN: EP procedure planning REFERRING PHYSICIAN: 1) Alli Hernandez ATTENDING PHYSICIAN: ROZ DIXON TECHNOLOGIST: Manuel Reid ========= ========= Patient Account [id number] CPT Codes 67161 ICD10 Codes I48.19 Report generated by [employer], a product of [employer] [facility] Radiology Study observation (narrative) [facility] Chest>Heart.atrium.left+Pulm onary veins CT angiogram and 3D reconstruction W contrast IVOrdered By: Roz Dixon on 04-21-2024 [facility] Work Phone: 12 Lead EKG performed by [facility] on 04-19-2024 12 Lead EKG performed by [facility] Normal [facility] Absolute neutrophil countOrd ered By: Nagi Sharma on 04-19-2024 Neutrophils (Bld) [#/Vol] 4.8 10*3/uL 2.0-7.7 [facility] Albumin to globulin ratioOrd ered By: Nagi Sharma on 04-19-2024 Albumin/Globulin [Mass ratio] 1.0 {ratio} 0.9-2.4 [facility] Basophil percentageOrdered B y: Nagi Sharma on 04-19-2024 Basophils/100 WBC (Bld) 0.4 % 0-1 [facility] Bilirubin, totalOrdered By: Nagi Sharma on 04-19-2024 Bilirubin [Mass/Vol] 0.70 mg/dL 0.20-1.00 [facility] Comment on above: For patients on eltr ombopag therapy, use of Dimension Grassflat TBIL is not recommended. Blood urea nitrogen (BUN)/cr eatinine ratioOrdered By: Nagi Sharma on 04-19-2024 Urea nitrogen/Creatinine [Mass ratio] 27.9 mg/mg High 10-20 [facility] CBC W/Diff, Automatedon Absolute Lymph 2.38 X10 3/uL Normal 0.83-4.51 [facility] Comment on above: Performed By: #### L 100.0100, L500.4050, L501.5200 ####[facility] [address] [place], [address] Absolute Neut 4.8 X10 3/uL Normal 2.0-7.7 [facility] Comment on above: Performed By: #### L 100.0100, L500.4050, L501.5200 ####[facility] [address] [place], [address] Basophils/100 WBC (Bld) 0.4 % Normal 0-1 [facility] Comment on above: Performed By: #### L 100.0100, L500.4050, L501.5200 ####[facility] [address] [place], [address] Eosinophils/100 WBC (Bld) 3.1 % Normal 0-5 [facility] Comment on above: Performed By: #### L 100.0100, L500.4050, L501.5200 ####[facility] [address] [place], [address] Erythrocyte distribution width (RBC) [Ratio] 12.4 % Normal 11.6-14.6 [facility] Comment on above: Performed By: #### L 100.0100, L500.4050, L501.5200 ####[facility] [address] [place], [address] Hematocrit (Bld) [Volume fraction] 42.0 % Normal 37-47 [facility] Comment on above: Performed By: #### L 100.0100, L500.4050, L501.5200 ####[facility] [address] [place], [address] Hemoglobin (Bld) [Mass/Vol] 14.0 g/dL Normal 12.0-15.0 [facility] Comment on above: Performed By: #### L 100.0100, L500.4050, L501.5200 ####[facility] [address] [place], [address] IG% 0.400 Normal 0.0-0.9 [facility] Comment on above: Result Comment: IG% - Immature Granulocytes (promyelocytes, myelocytes andmetamyelocytes) > 1% indicates that a LEFT SHIFT is Present. Performed By: #### L 100.0100, L500.4050, L501.5200 ####[facility] [address] [place], [address] Lymphocytes/100 WBC (Bld) 28.7 % Normal 19-41 [facility] Comment on above: Performed By: #### L 100.0100, L500.4050, L501.5200 ####[facility] [address] [place], [address] MCH (RBC) [Entitic mass] 30.6 pg Normal 27.0-32.0 [facility] Comment on above: Performed By: #### L 100.0100, L500.4050, L501.5200 ####[facility] [address] [place], [address] MCHC (RBC) [Mass/Vol] 33.3 g/dL Normal 32-[address] [facility] Comment on above: Performed By: #### L 100.0100, L500.4050, L501.5200 ####[facility] [address] [place], [address] MCV (RBC) [Entitic vol] 91.9 fL Normal 81-99 [facility] Comment on above: Performed By: #### L 100.0100, L500.4050, L501.5200 ####[facility] [address] [place], [address] Monocytes/100 WBC (Bld) 10.0 % Normal 0-10 [facility] Comment on above: Performed By: #### L 100.0100, L500.4050, L501.5200 ####[facility] [address] [place], [address] Neutrophils/100 WBC (Bld) 57.4 % Normal 47-70 [facility] Comment on above: Performed By: #### L 100.0100, L500.4050, L501.5200 ####[facility] [address] [place], [address] Nucleated RBC (Bld) [#/Vol] 0 10*3/uL Normal 0-5 [facility] Comment on above: Performed By: #### L 100.0100, L500.4050, L501.5200 ####[facility] [address] [place], [address] Platelet mean volume (Bld) [Entitic vol] 9.7 fL Normal 6.2-12.0 [facility] Comment on above: Performed By: #### L 100.0100, L500.4050, L501.5200 ####[facility] [address] [place], [address] Platelets (Bld) [#/Vol] 278 10*3/uL Normal 150-450 [facility] Comment on above: Performed By: #### L 100.0100, L500.4050, L501.5200 ####[facility] [address] [place], [address] RBC (Bld) [#/Vol] 4.57 10*6/uL Normal 4.2-5.4 [facility] Comment on above: Performed By: #### L 100.0100, L500.4050, L501.5200 ####[facility] [address] [place], [place], [address] RDW SD 41.1 fl Normal 35.1-43.9 [facility] Comment on above: Performed By: #### L 100.0100, L500.4050, L501.5200 ####[facility] [address] [place], [address] WBC (Bld) [#/Vol] 8.3 10*3/uL Normal 4.4-11.0 [facility] Comment on above: Performed By: #### L 100.0100, L500.4050, L501.5200 ####[facility] [address] [place], [address] Carbon dioxide measurementOr dered By: Nagi Sharma on 04-19-2024 CO2 [Moles/Vol] 28.0 mmol/L 21.0-32.0 [facility] Cardiology Visit Reporton Cardiology Visit Report Normal [facility] Chloride measurementOrdered By: Nagi Sharma on 04-19-2024 Chloride [Moles/Vol] 106 mmol/L 98-107 [facility] Comprehensive Metabolic Prof ilon 04-19-2024 Albumin [Mass/Vol] 3.8 g/dL Normal 3.2-5.0 [facility] Comment on above: Performed By: #### L 100.0100, L500.4050, L501.5200 ####[facility] [address] [place], [address] Albumin/Globulin [Mass ratio] 1.0 {ratio} Normal 0.9-2.4 [facility] Comment on above: Performed By: #### L 100.0100, L500.4050, L501.5200 ####[facility] [address] [place], [address] ALK P 108 U/L Normal 45-117 [facility] Comment on above: Performed By: #### L 100.0100, L500.4050, L501.5200 ####[facility] [address] [place], [address] ALT [Catalytic activity/Vol] 32 U/L Normal 13-56 [facility] Comment on above: Performed By: #### L 100.0100, L500.4050, L501.5200 ####[facility] [address] [place], [address] AST [Catalytic activity/Vol] 22 U/L Normal 15-37 [facility] Comment on above: Performed By: #### L 100.0100, L500.4050, L501.5200 ####[facility] [address] [place], [address] Bilirubin [Mass/Vol] 0.70 mg/dL Normal 0.20-1.00 [facility] Comment on above: Result Comment: For patients on eltrombopag therapy, use of Dimension [place] TBIL is not recommended. Performed By: #### L 100.0100, L500.4050, L501.5200 ####[facility] [address] [place], [address] BUN/CRE 27.9 RATIO High 10-20 [facility] Comment on above: Performed By: #### L 100.0100, L500.4050, L501.5200 ####[facility] [address] [place], [address] CA,Total 10.0 mg/dL Normal 8.5-10.1 [facility] Comment on above: Performed By: #### L 100.0100, L500.4050, L501.5200 ####[facility] [address] [place], [address] Chloride [Moles/Vol] 106 mmol/L Normal 98-107 [facility] Comment on above: Performed By: #### L 100.0100, L500.4050, L501.5200 ####[facility] [address] [place], [address] CO2 [Moles/Vol] 28.0 mmol/L Normal 21.0-32.0 [facility] Comment on above: Performed By: #### L 100.0100, L500.4050, L501.5200 ####[facility] [address] [place], [address] Creatinine [Mass/Vol] 1.04 mg/dL High 0.55-1.[address] [facility] Comment on above: Result Comment: The validity of the calculated GFR GFRAA in patients over70 years has not been determined. Clinical correlation isessential. Performed By: #### L 100.0100, L500.4050, L501.5200 ####[facility] [address] [place], [address] EST GFR - AA 66 mL/min Normal >60 [facility] Comment on above: Result Comment: Afri can Cambodian GFR Calc Performed By: #### L 100.0100, L500.4050, L501.5200 ####[facility] [address] [place], [address] GAP 5 Normal 5-15 [facility] Comment on above: Performed By: #### L 100.0100, L500.4050, L501.5200 ####[facility] [address] [place], [address] GFR/1.73 sq M.predicted among non-blacks MDRD (S/P/Bld) [Vol rate/Area] 55 mL/min/{1.73_m2} Low >60 [facility] Comment on above: Result Comment: Non- GFR Calc Performed By: #### L 100.0100, L500.4050, L501.5200 ####[facility] [address] [place], [address] Globulin (S) [Mass/Vol] 3.7 g/dL Normal 2.2-4.2 [facility] Comment on above: Performed By: #### L 100.0100, L500.4050, L501.5200 ####[facility] [address] [place], [address] Glucose [Mass/Vol] 85 mg/dL Normal 74-106 [facility] Comment on above: Performed By: #### L 100.0100, L500.4050, L501.5200 ####[facility] [address] [place], [address] Potassium [Moles/Vol] 4.0 mmol/L Normal 3.5-5.[address] [facility] Comment on above: Performed By: #### L 100.0100, L500.4050, L501.5200 ####[facility] [address] [place], [address] Sodium [Moles/Vol] 138 mmol/L Normal 136-145 [facility] Comment on above: Performed By: #### L 100.0100, L500.4050, L501.5200 ####[facility] [address] [place], [address] T PROT 7.5 g/dL Normal 6.4-8.2 [facility] Comment on above: Performed By: #### L 100.0100, L500.4050, L501.5200 ####[facility] [address] [place], [address] Urea nitrogen [Mass/Vol] 29 mg/dL High 7-18 [facility] Comment on above: Performed By: #### L 100.0100, L500.4050, L501.5200 ####[facility] [address] [place], [address] Eosinophil percentageOrdered By: Nagi Sharma on 04-19-2024 Eosinophils/100 WBC (Bld) 3.1 % 0-5 [facility] Erythrocyte distribution wid th ratioOrdered By: Nagi Sharma on 04-19-2024 Erythrocyte distribution width (RBC) [Ratio] 12.4 % 11.6-14.6 [facility] Erythrocyte distribution wid th standard deviationOrdered By: Nagi Sharma on 04-19-2024 Erythrocyte distribution width (RBC) [Entitic vol] 41.1 fL 35.1-43.9 [facility] Estimated glomerular filtrat ion rate (GFR) AmericanOrdered By: Nagi Sharma on 04-19-2024 Estimated GFR (MDRD) Amer 66 mL/min >60 [facility] Comment on above: GFR Calc Glomerular filtration rate ( GFR) estimationOrdered By: Nagi Sharma on 04-19-2024 Estimated GFR (MDRD) Non-Af Amer 55 mL/min Low >60 [facility] Comment on above: Non- GFR Calc Glucose measurementOrdered B y: Ngai Sharma on 04-19-2024 Glucose [Mass/Vol] 85 mg/dL 74-106 [facility] Hematocrit Auto (Bld) [Volum e fraction]Ordered By: Nagi Sharma on 04-19-2024 Hematocrit (Bld) [Volume fraction] 42.0 % 37-47 [facility] Hemoglobin measurementOrdere d By: Nagi Sharma on 04-19-2024 Hemoglobin (Bld) [Mass/Vol] 14.0 g/dL 12.0-15.0 [facility] Immature granulocytes/100 WB C Auto (Bld)Ordered By: Nagi Sharma on 04-19-2024 Immature granulocytes/100 WBC (Bld) 0.400 % 0.0-0.9 [facility] Comment on above: IG% - Immature Granu locytes (promyelocytes, myelocytes and metamyelocytes) > 1% indicates that a LEFT SHIFT is Present. Laboratory - Chemistry and C hemistry - challengeOrdered By: Nagi Sharma on 04-19-2024 AST [Catalytic activity/Vol] 22 U/L 15-37 [facility] Lymphocytes Auto (Unsp spec) [#/Vol]Ordered By: Nagi Sharma on 04-19-2024 Lymphocytes (Bld) [#/Vol] 2.38 10*3/uL 0.83-4.51 [facility] Lymphocytes/100 WBC Auto (Un sp spec)Ordered By: Nagi Sharma on 04-19-2024 Lymphocytes/100 WBC (Bld) 28.7 % 19-41 [facility] MCV (mean corpuscular volume ) determinationOrdered By: Nagi Sharma on 04-19-2024 MCV (RBC) [Entitic vol] 91.9 fL 81-99 [facility] Magnesiumon 04-19-2024 Magnesium [Mass/Vol] 2.3 mg/dL Normal 1.6-2.6 [facility] Comment on above: Performed By: #### L 100.0100, L500.4050, L501.5200 ####[facility] [address] [place], [place], [address] Magnesium measurementOrdered By: Nagi Sharma on 04-19-2024 Magnesium [Mass/Vol] 2.3 mg/dL 1.6-2.6 [facility] Mean corpuscular hemoglobin (MCH) determinationOrdered By: Nagi Sharma on 04-19-2024 MCH (RBC) [Entitic mass] 30.6 pg 27.0-32.0 [facility] Mean corpuscular hemoglobin concentration (MCHC) determinationOrdered By: Nagi Sharma on 04-19-2024 MCHC (RBC) [Mass/Vol] 33.3 g/dL 32-[address] [facility] Mean platelet volume determi nationOrdered By: Nagi Sharma on 04-19-2024 Platelet mean volume (Bld) [Entitic vol] 9.7 fL 6.2-12.0 [facility] Monocyte percentageOrdered B y: Nagi Sharma on 04-19-2024 Monocytes/100 WBC (Bld) 10.0 % 0-10 [facility] Neutrophil percentageOrdered By: Nagi Sharma on 04-19-2024 Neutrophils/100 WBC (Bld) 57.4 % 47-70 [facility] Nucleated red blood cell per centageOrdered By: Nagi Sharma on 04-19-2024 Nucleated RBC/100 WBC (Bld) [Ratio] 0 % 0-5 [facility] Platelet countOrdered By: Maya Sharma on 04-19-2024 Platelets (Bld) [#/Vol] 278 10*3/uL 150-450 [facility] Potassium measurementOrdered By: Nagi Sharma on 04-19-2024 Potassium [Moles/Vol] 4.0 mmol/L 3.5-5.[address] [facility] RBC Auto (Bld) [#/Vol]Ordere d By: Nagi Sharma on 04-19-2024 RBC (Bld) [#/Vol] 4.57 10*6/uL 4.2-5.4 [facility] Serum anion gap measurementO rdered By: Nagi Sharma on 04-19-2024 Anion gap [Moles/Vol] 5 mmol/L 5-[address] [facility] Serum globulin measurementOr dered By: Nagi Sharma on 04-19-2024 Globulin (S) [Mass/Vol] 3.7 g/dL 2.2-4.2 [facility] Serum or plasma alanine snyder otransferase (ALT) measurementOrdered By: Nagi Sharma on 04-19-2024 ALT [Catalytic activity/Vol] 32 U/L 13-56 [facility] Serum or plasma albumin michelle urement (mass/volume)Ordered By: Nagi Sharma on 04-19-2024 Albumin [Mass/Vol] 3.8 g/dL 3.2-5.0 [facility] Serum or plasma alkaline olga sphatase measurementOrdered By: Nagi Sharma on 04-19-2024 ALP [Catalytic activity/Vol] 108 U/L 45-117 [facility] Serum or plasma calcium michelle urement (mass/volume)Ordered By: Naig Sharma on 04-19-2024 Calcium [Mass/Vol] 10.0 mg/dL 8.5-10.1 [facility] Serum or plasma creatinine m easurement (mass/volume)Ordered By: Nagi Sharma on 04-19-2024 Creatinine [Mass/Vol] 1.04 mg/dL High 0.55-1.[address] [facility] Comment on above: The validity of the calculated GFR & GFRAA in patients over 70 years has not been determined. Clinical correlation is essential. Serum or plasma urea nitroge n measurement (mass/volume)Ordered By: Nagi Sharma on 04-19-2024 Urea nitrogen [Mass/Vol] 29 mg/dL High 7-18 [facility] Sodium levelOrdered By: Nagi Sharma on 04-19-2024 Sodium [Moles/Vol] 138 mmol/L 136-145 [facility] Total proteinOrdered By: Reinaldo Sharma on 04-19-2024 Protein [Mass/Vol] 7.5 g/dL 6.4-8.2 [facility] White blood cell (WBC) count Ordered By: Nagi Sharma on 04-19-2024 WBC (Bld) [#/Vol] 8.3 10*3/uL 4.4-11.0 [facility] CARDIAC RHYTHM (SCANNED)on 06-18-2023 [facility] CBC AND ELECTRONIC DIFFon Basophils (Bld) [#/Vol] K/uL 0.00 - 0.15 K/uL [facility] Basophils/100 WBC (Bld) 0.3 % [facility] Differential cell count method Nom (Bld) Electronic Differential [facility] Eosinophils (Bld) [#/Vol] 0.28 10*3/uL 0.00 - 0.42 K/uL [facility] Eosinophils/100 WBC (Bld) 3.2 % [facility] Erythrocyte distribution width (RBC) [Ratio] 12.7 % 10.8 - 14.9 % [facility] Hematocrit (Bld) [Volume fraction] 39.1 % 34.9 - 44.3 % [facility] Hemoglobin (Bld) [Mass/Vol] 13.0 g/dL 11.4 - 15.2 g/dL [facility] Immature granulocytes (Bld) [#/Vol] 0.06 10*3/uL NINF - 0.08 K/uL [facility] Immature granulocytes/100 WBC (Bld) 0.7 % [facility] Lymphocytes (Bld) [#/Vol] 2.85 10*3/uL 1.16 - 3.51 K/uL [facility] Lymphocytes/100 WBC (Bld) 32.2 % [facility] MCH (RBC) [Entitic mass] 30.6 pg 25.9 - 33.9 pg [facility] MCHC (RBC) [Mass/Vol] 33.2 g/dL 31.4 - 35.9 g/dL [facility] MCV (RBC) [Entitic vol] 92.0 fL 79.6 - 97.7 fL [facility] Monocytes (Bld) [#/Vol] 0.72 10*3/uL 0.22 - 0.87 K/uL [facility] Monocytes/100 WBC (Bld) 8.1 % [facility] Neutrophils (Bld) [#/Vol] 4.92 10*3/uL 1.64 - 7.28 K/uL [facility] Nucleated RBC/100 WBC (Bld) [Ratio] 0.0 % BANNERF [facility] Platelet mean volume (Bld) [Entitic vol] 10.0 fL 8.5 - 12.2 fL [facility] Platelets (Bld) [#/Vol] 261 10*3/uL 150 - 393 K/uL [facility] RBC (Bld) [#/Vol] 4.25 10*6/uL [facility] Segmented neutrophils/100 WBC (Bld) 55.5 % [facility] WBC (Bld) [#/Vol] 8.86 10*3/uL 3.99 - 11.19 K/uL [facility] Abs Baso Auto < Normal 0.00-0.15 [facility] Comment on above: Performed By: #### I PB, MGO, HDLT #### [facility] (DEFAULT) [address] [place] [address] Basophils/100 WBC (Bld) 0.3 % Normal [facility] Comment on above: Performed By: #### I PB, MGO, HDLT #### [facility] (DEFAULT) [address] [place] [address]862 DIFF STATUS Electronic Differential Normal [facility] Comment on above: Performed By: #### I PB, MGO, HDLT #### [facility] (DEFAULT) [address] [place] [address]082 Eosinophils (Bld) [#/Vol] 0.28 10*3/uL Normal 0.00-0.42 [facility] Comment on above: Performed By: #### I PB, MGO, HDLT #### [facility] (DEFAULT) [address] [place] [address]97 Eosinophils/100 WBC (Bld) 3.2 % Normal [facility] Comment on above: Performed By: #### I PB, MGO, HDLT #### [facility] (DEFAULT) [address] [place] [address]35 Hematocrit (Bld) [Volume fraction] 39.1 % Normal 34.9-44.3 [facility] Comment on above: Performed By: #### I PB, MGO, HDLT #### [facility] (DEFAULT) [address] [place] [address]166 Hemoglobin (Bld) [Mass/Vol] 13.0 g/dL Normal 11.4-15.2 [facility] Comment on above: Performed By: #### I PB, MGO, HDLT #### [facility] (DEFAULT) [address] [place] [address] Immature Grans % 0.7 % Normal [facility] Comment on above: Performed By: #### I PB, MGO, HDLT #### [facility] (DEFAULT) [address] [place] [address] 51906 Immature Grans Absolute 0.06 K/uL Normal <=0.08 [facility] Comment on above: Performed By: #### I PB, MGO, HDLT #### [facility] (DEFAULT) [address] [place] [address]13 Lymphocytes (Bld) [#/Vol] 2.85 10*3/uL Normal 1.16-3.51 [facility] Comment on above: Performed By: #### I PB, MGO, HDLT #### [facility] (DEFAULT) [address] [place] [address] 27937 Lymphocytes/100 WBC (Bld) 32.2 % Normal [facility] Comment on above: Performed By: #### I PB, MGO, HDLT #### [facility] (DEFAULT) [address] [place] [address] 43057 MCV (RBC) [Entitic vol] 92.0 fL Normal 79.6-97.7 [facility] Comment on above: Performed By: #### I PB, MGO, HDLT #### [facility] (DEFAULT) [address] [place] [address] 19997 Mean Cell Hgb 30.6 pg Normal 25.9-33.9 [facility] Comment on above: Performed By: #### I PB, MGO, HDLT #### [facility] (DEFAULT) [address] [place] [address] 53650 Mean Cell Hgb Conc 33.2 g/dL Normal 31.4-35.9 [facility] Comment on above: Performed By: #### I PB, MGO, HDLT #### [facility] (DEFAULT) [address] [place] [address] 68245 Monocytes (Bld) [#/Vol] 0.72 10*3/uL Normal 0.22-0.87 [facility] Comment on above: Performed By: #### I PB, MGO, HDLT #### [facility] (DEFAULT) [address] [place] [address] 21077 Monocytes/100 WBC (Bld) 8.1 % Normal [facility] Comment on above: Performed By: #### I PB, MGO, HDLT #### [facility] (DEFAULT) [address] [place] [address] 76034 Nucleated RBC 0.0 /100 WBC Normal <=0.2 [facility] Comment on above: Performed By: #### I PB, MGO, HDLT #### [facility] (DEFAULT) [address] [place] [address] 12440 Platelet mean volume (Bld) [Entitic vol] 10.0 fL Normal 8.5-12.2 [facility] Comment on above: Performed By: #### I PB, MGO, HDLT #### [facility] (DEFAULT) [address] [place] [address] 26366 Platelets (Bld) [#/Vol] 261 10*3/uL Normal 150-393 [facility] Comment on above: Performed By: #### I PB, MGO, HDLT #### [facility] (DEFAULT) [address] [place] [address] 58086 RBC (Bld) [#/Vol] 4.25 10*6/uL Normal 3.91-5.04 [facility] Comment on above: Performed By: #### I PB, MGO, HDLT #### [facility] (DEFAULT) [address] [place] [address] 56675 RBC Distribution 12.7 % Normal 10.8-14.9 [facility] Comment on above: Performed By: #### I PB, MGO, HDLT #### [facility] (DEFAULT) [address] [place] [address] 33590 Segs + Bands Auto 55.5 % Normal [facility] Comment on above: Performed By: #### I PB, MGO, HDLT #### [facility] (DEFAULT) [address] [place] [address] 98036 Segs + Bands,Absolute Auto 4.92 K/uL Normal 1.64-7.28 [facility] Comment on above: Performed By: #### I PB MGO, HDLT #### [facility] (DEFAULT) [address] [place] [address] 07724 WBC (Bld) [#/Vol] 8.86 10*3/uL Normal 3.99-11.19 [facility] Comment on above: Performed By: #### I PB, MGO, HDLT #### [facility] (DEFAULT) [address] [place] [address] CHEM 7 (LYTES,BUN,CREA,GLUC) on 04-17-2024 Anion gap [Moles/Vol] 13 mmol/L 7 - 17 mmol/L [facility] Chloride [Moles/Vol] 101 mmol/L 98 - 10 8 mmol/L [facility] CO2 [Moles/Vol] 30 mmol/L 21 - 31 mmol/L [facility] Creatinine [Mass/Vol] 0.87 mg/dL 0.50 - 1.20 mg/dL [facility] eGFR, CKD-EPI, Female 71 - PINF [facility] Comment on above: Reported eGFR is bas ed on the CKD-EPI 2020 equation using creatinine, age, and sex. Glucose [Mass/Vol] 95 mg/dL 70 - 99 mg/dL [facility] Interpretation and review of laboratory results Abnormal [facility] Osmolality Calc [Osmolality] 298 [facility] Potassium [Moles/Vol] 4.0 mmol/L 3.5 - 5.0 mmol/L [facility] Sodium [Moles/Vol] 140 mmol/L 135 - 145 mmol/L [facility] Urea nitrogen [Mass/Vol] 28 mg/dL High 7 - 25 mg/dL [facility] Urea nitrogen/Creatinine [Mass ratio] 32 mg/mg [facility] Anion gap [Moles/Vol] 13 mmol/L Normal 7-17 [facility] Comment on above: Performed By: #### I PB, MGO, HDLT #### [facility] (DEFAULT) [address] [place] [address] 38841 Chloride [Moles/Vol] 101 mmol/L Normal 98-108 [facility] Comment on above: Performed By: #### I ABRIL ANDREA HDLT #### [facility] (DEFAULT) [address] [place] [address] 93825 CO2 [Moles/Vol] 30 mmol/L Normal 21-31 [facility] Comment on above: Performed By: #### I ABRIL ANDREA HDLT #### [facility] (DEFAULT) [address] [place] [address] 65128 Creatinine [Mass/Vol] 0.87 mg/dL Normal 0.50-1.20 [facility] Comment on above: Performed By: #### Alexander ANDREA MGO HDLT #### [facility] (DEFAULT) [address] [place] [address] 69759 GFR/1.73 sq M.predicted among non-blacks MDRD (S/P/Bld) [Vol rate/Area] 69 mL/min/{1.73_m2} Normal >=60 [facility] Comment on above: Result Comment: Repo rted eGFR is based on the CKD-EPI 2020 equation using creatinine, age, and sex. Performed By: #### I ZULLY MGO HDLT #### [facility] (DEFAULT) [address] [place] [address] 41907 Glucose [Mass/Vol] 95 mg/dL Normal 70-99 [facility] Comment on above: Performed By: #### Alexander ANDREA MGJuve HDLT #### [facility] (DEFAULT) [address] [place] [address] 18733 Osmolality [Osmolality] 298 mosm/kg Normal 278-305 [facility] Comment on above: Performed By: #### I PB MGO, HDLT #### [facility] (DEFAULT) [address] [place] [address] 56801 Potassium [Moles/Vol] 4.0 mmol/L Normal 3.5-5.0 [facility] Comment on above: Performed By: #### I PB MGO, HDLT #### [facility] (DEFAULT) [address] [place] [address] 36046 Sodium [Moles/Vol] 140 mmol/L Normal 135-145 [facility] Comment on above: Performed By: #### I PB, MGO, HDLT #### [facility] (DEFAULT) [address] [place] [address] 23395 Urea nitrogen [Mass/Vol] 28 mg/dL High 7-25 [facility] Comment on above: Performed By: #### I PB MGO, HDLT #### [facility] (DEFAULT) [address] [place] [address] 52583 Urea nitrogen/Creatinine [Mass ratio] 32 mg/mg Normal [facility] Comment on above: Performed By: #### Alexander PB, MGO, HDLT #### [facility] (DEFAULT) [address] [place] [address] 57777 MAGNESIUMon 04-17-2024 Interpretation and review of laboratory results Normal [facility] Magnesium [Mass/Vol] 2.0 mg/dL 1.6 - 2 .6 mg/dL [facility] Magnesium [Mass/Vol] 2.0 mg/dL Normal 1.6-2.6 [facility] Comment on above: Performed By: #### I PB, MGO, HDLT #### [facility] (DEFAULT) [address] [place] [address] 21330 No Panel Informationon 04-17 [facility] CBC AND ELECTRONIC DIFFon Basophils (Bld) [#/Vol] K/uL 0.00 - 0.15 K/uL [facility] Basophils/100 WBC (Bld) 0.3 % [facility] Differential cell count method Nom (Bld) Electronic Differential [facility] Eosinophils (Bld) [#/Vol] 0.33 10*3/uL 0.00 - 0.42 K/uL [facility] Eosinophils/100 WBC (Bld) 3.8 % [facility] Erythrocyte distribution width (RBC) [Ratio] 12.5 % 10.8 - 14.9 % [facility] Hematocrit (Bld) [Volume fraction] 38.9 % 34.9 - 44.3 % [facility] Hemoglobin (Bld) [Mass/Vol] 12.9 g/dL 11.4 - 15.2 g/dL [facility] Immature granulocytes (Bld) [#/Vol] 0.04 10*3/uL NINF - 0.08 K/uL [facility] Immature granulocytes/100 WBC (Bld) 0.5 % [facility] Lymphocytes (Bld) [#/Vol] 2.88 10*3/uL 1.16 - 3.51 K/uL [facility] Lymphocytes/100 WBC (Bld) 33.4 % [facility] MCH (RBC) [Entitic mass] 30.4 pg 25.9 - 33.9 pg [facility] MCHC (RBC) [Mass/Vol] 33.2 g/dL 31.4 - 35.9 g/dL [facility] MCV (RBC) [Entitic vol] 91.7 fL 79.6 - 97.7 fL [facility] Monocytes (Bld) [#/Vol] 0.71 10*3/uL 0.22 - 0.87 K/uL [facility] Monocytes/100 WBC (Bld) 8.2 % [facility] Neutrophils (Bld) [#/Vol] 4.62 10*3/uL 1.64 - 7.28 K/uL [facility] Nucleated RBC/100 WBC (Bld) [Ratio] 0.0 % [facility] Platelet mean volume (Bld) [Entitic vol] 10.1 fL 8.5 - 12.2 fL [facility] Platelets (Bld) [#/Vol] 254 10*3/uL 150 - 393 K/uL [facility] RBC (Bld) [#/Vol] 4.24 10*6/uL [facility] Segmented neutrophils/100 WBC (Bld) 53.8 % [facility] WBC (Bld) [#/Vol] 8.61 10*3/uL 3.99 - 11.19 K/uL [facility] Abs Baso Auto < Normal 0.00-0.15 [facility] Comment on above: Performed By: #### I PB, MGO, HDLT #### [facility] (DEFAULT) [address] [place] [address] 11664 Basophils/100 WBC (Bld) 0.3 % Normal [facility] Comment on above: Performed By: #### I PB, MGO, HDLT #### [facility] (DEFAULT) [address] [place] [address] 83203 DIFF STATUS Electronic Differential Normal [facility] Comment on above: Performed By: #### I PB, MGO, HDLT #### [facility] (DEFAULT) [address] [place] [address] 36233 Eosinophils (Bld) [#/Vol] 0.33 10*3/uL Normal 0.00-0.42 [facility] Comment on above: Performed By: #### I PB, MGO, HDLT #### [facility] (DEFAULT) [address] [place] [address] 67616 Eosinophils/100 WBC (Bld) 3.8 % Normal [facility] Comment on above: Performed By: #### I PB, MGO, HDLT #### [facility] (DEFAULT) [address] [place] [address] 22064 Hematocrit (Bld) [Volume fraction] 38.9 % Normal 34.9-44.3 [facility] Comment on above: Performed By: #### I PB, MGO, HDLT #### [facility] (DEFAULT) [address] [place] [address] 79981 Hemoglobin (Bld) [Mass/Vol] 12.9 g/dL Normal 11.4-15.2 [facility] Comment on above: Performed By: #### I PB, MGO, HDLT #### [facility] (DEFAULT) [address] [address] Immature Grans % 0.5 % Normal [facility] Comment on above: Performed By: #### I PB, MGO, HDLT #### [facility] (DEFAULT) [address] [address] Immature Grans Absolute 0.04 K/uL Normal <=0.08 [facility] Comment on above: Performed By: #### I PB, MGO, HDLT #### [facility] (DEFAULT) [address] [address] Lymphocytes (Bld) [#/Vol] 2.88 10*3/uL Normal 1.16-3.51 [facility] Comment on above: Performed By: #### I PB, MGO, HDLT #### [facility] (DEFAULT) [address] [address] Lymphocytes/100 WBC (Bld) 33.4 % Normal [facility] Comment on above: Performed By: #### I PB, MGO, HDLT #### [facility] (DEFAULT) [address] [address] MCV (RBC) [Entitic vol] 91.7 fL Normal 79.6-97.7 [facility] Comment on above: Performed By: #### I PB, MGO, HDLT #### [facility] (DEFAULT) [address] [address] Mean Cell Hgb 30.4 pg Normal 25.9-33.9 [facility] Comment on above: Performed By: #### I PB, MGO, HDLT #### [facility] (DEFAULT) [address] [address] Mean Cell Hgb Conc 33.2 g/dL Normal 31.4-35.9 [facility] Comment on above: Performed By: #### I PB, MGO, HDLT #### [facility] (DEFAULT) [address] [place] [address] 16034 Monocytes (Bld) [#/Vol] 0.71 10*3/uL Normal 0.22-0.87 [facility] Comment on above: Performed By: #### I PB, MGO, HDLT #### [facility] (DEFAULT) [address] [place] [address] 98631 Monocytes/100 WBC (Bld) 8.2 % Normal [facility] Comment on above: Performed By: #### I PB, MGO, HDLT #### [facility] (DEFAULT) [address] [place] [address] 94676 Nucleated RBC 0.0 /100 WBC Normal <=0.2 [facility] Comment on above: Performed By: #### I PB, MGO, HDLT #### [facility] (DEFAULT) [address] [place] [address] 43589 Platelet mean volume (Bld) [Entitic vol] 10.1 fL Normal 8.5-12.2 [facility] Comment on above: Performed By: #### I PB, MGO, HDLT #### [facility] (DEFAULT) [address] [place] [address] 82869 Platelets (Bld) [#/Vol] 254 10*3/uL Normal 150-393 [facility] Comment on above: Performed By: #### I PB, MGO, HDLT #### [facility] (DEFAULT) [address] [place] [address] 50083 RBC (Bld) [#/Vol] 4.24 10*6/uL Normal 3.91-5.04 [facility] Comment on above: Performed By: #### I PB, MGO, HDLT #### [facility] (DEFAULT) [address] [place] [address] 19031 RBC Distribution 12.5 % Normal 10.8-14.9 [facility] Comment on above: Performed By: #### I PB, MGO, HDLT #### [facility] (DEFAULT) [address] [place] [address] 17822 Segs + Bands Auto 53.8 % Normal [facility] Comment on above: Performed By: #### I PB, MGO, HDLT #### [facility] (DEFAULT) [address] [place] [address] 28596 Segs + Bands,Absolute Auto 4.62 K/uL Normal 1.64-7.28 [facility] Comment on above: Performed By: #### I PB, MGO, HDLT #### [facility] (DEFAULT) [address] [place] [address] 80667 WBC (Bld) [#/Vol] 8.61 10*3/uL Normal 3.99-11.19 [facility] Comment on above: Performed By: #### I PB, MGO, HDLT #### [facility] (DEFAULT) [address] [place] [address] 81611 CHEM 7 (LYTES,BUN,CREA,GLUC) on 04-16-2024 Anion gap [Moles/Vol] 13 mmol/L 7 - 17 mmol/L [facility] Chloride [Moles/Vol] 101 mmol/L 98 - 10 8 mmol/L [facility] CO2 [Moles/Vol] 32 mmol/L High 21 - 31 mmol/L [facility] Creatinine [Mass/Vol] 0.97 mg/dL 0.50 - 1.20 mg/dL [facility] eGFR, CKD-EPI, Female 63 - PINF [facility] Comment on above: Reported eGFR is bas ed on the CKD-EPI 2020 equation using creatinine, age, and sex. Glucose [Mass/Vol] 104 mg/dL High 70 - 99 mg/dL [facility] Interpretation and review of laboratory results Abnormal [facility] Osmolality Calc [Osmolality] 303 [facility] Potassium [Moles/Vol] 4.1 mmol/L 3.5 - 5.0 mmol/L [facility] Sodium [Moles/Vol] 142 mmol/L 135 - 145 mmol/L [facility] Urea nitrogen [Mass/Vol] 29 mg/dL High 7 - 25 mg/dL [facility] Urea nitrogen/Creatinine [Mass ratio] 30 mg/mg [facility] Anion gap [Moles/Vol] 13 mmol/L Normal 7-17 [facility] Comment on above: Performed By: #### L [id number] #### [facility] (DEFAULT) [address] [place] [address] 98646 Chloride [Moles/Vol] 101 mmol/L Normal 98-108 [facility] Comment on above: Performed By: #### L [id number] #### [facility] (DEFAULT) [address] [place] [address] 59169 CO2 [Moles/Vol] 32 mmol/L High 21-31 [facility] Comment on above: Performed By: #### L [id number] #### [facility] (DEFAULT) [address] [place] [address] 54364 Creatinine [Mass/Vol] 0.97 mg/dL Normal 0.50-1.20 [facility] Comment on above: Performed By: #### L [id number] #### [facility] (DEFAULT) [address] [place] [address] 74734 GFR/1.73 sq M.predicted among non-blacks MDRD (S/P/Bld) [Vol rate/Area] 61 mL/min/{1.73_m2} Normal >=60 [facility] Comment on above: Result Comment: Repo rted eGFR is based on the CKD-EPI 2020 equation using creatinine, age, and sex. Performed By: #### L [id number] #### [facility] (DEFAULT) [address] [place] [address] 30878 Glucose [Mass/Vol] 104 mg/dL High 70-99 [facility] Comment on above: Performed By: #### L [id number] #### [facility] (DEFAULT) [address] [place] [address] 32953 Osmolality [Osmolality] 303 mosm/kg Normal 278-305 [facility] Comment on above: Performed By: #### L [id number] #### [facility] (DEFAULT) [address] [place] [address] 30931 Potassium [Moles/Vol] 4.1 mmol/L Normal 3.5-5.0 [facility] Comment on above: Performed By: #### L [id number] #### [facility] (DEFAULT) [address] [place] [address] 86208 Sodium [Moles/Vol] 142 mmol/L Normal 135-145 [facility] Comment on above: Performed By: #### L [id number] #### [facility] (DEFAULT) [address] [place] [address] 69961 Urea nitrogen [Mass/Vol] 29 mg/dL High 7-25 [facility] Comment on above: Performed By: #### L [id number] #### [facility] (DEFAULT) [address] [place] [address] 48461 Urea nitrogen/Creatinine [Mass ratio] 30 mg/mg Normal [facility] Comment on above: Performed By: #### L [id number] #### [facility] (DEFAULT) [address] [place] [address] 40045 EP CARDIOVERSION EXTERNALon 04-16-2024 EP CARDIOVERSION EXTERNAL Elizabeth Persaud is a 78 y.o. female with persistent atrial fibrillation who presented for cardioversion. - Successful 200 J cardioversion. Plan Continue Eliquis and Tikosyn. Outpatient AF ablation scheduled next week. Table formatting from the original result was not included. Elizabeth Persaud EP Procedure - EPS/Ablation/Device Ordering Physician: LANDON ADHIKARI Order #: [id number] Study Date: 04/15/2024 Patient Information Name MRN Description Elizabeth Persaud [id number] 78 y.o. female Physicians Panel Physicians Referring [...] consent and permission to proceed was given. Cardioversion/Defibril lation Arrhythmia Type: atrial fibrillation. Method of Cardioversion: [...] no ABN associated with this order. Normal [facility] Elizabeth Persaud is a 78 y.o. female with persistent atrial fibrillation who presented for cardioversion. - Successful 200 J cardioversion. Plan Continue Eliquis and Tikosyn. Outpatient AF ablation scheduled next week. [facility] EP CARDIOVERSION EXTERNALOrd ered By: Landon Garcia on 04-16-2024 Body surface area Derived from formula 1.58 m2 [facility] Work Phone: [facility] Work Phone: MAGNESIUMon 04-16-2024 Interpretation and review of laboratory results Normal [facility] Magnesium [Mass/Vol] 2.0 mg/dL 1.6 - 2 .6 mg/dL [facility] Magnesium [Mass/Vol] 2.0 mg/dL Normal 1.6-2.6 [facility] Comment on above: Performed By: #### L [id number] #### [facility] (DEFAULT) [address] [address] No Panel Informationon 04-16 [facility] CBC AND ELECTRONIC DIFFon Basophils (Bld) [#/Vol] 0.04 10*3/uL 0.00 - 0.15 K/uL [facility] Basophils/100 WBC (Bld) 0.4 % [facility] Differential cell count method Nom (Bld) Electronic Differential [facility] Eosinophils (Bld) [#/Vol] 0.29 10*3/uL 0.00 - 0.42 K/uL [facility] Eosinophils/100 WBC (Bld) 3.2 % [facility] Erythrocyte distribution width (RBC) [Ratio] 12.3 % 10.8 - 14.9 % [facility] Hematocrit (Bld) [Volume fraction] 41.1 % 34.9 - 44.3 % [facility] Hemoglobin (Bld) [Mass/Vol] 13.5 g/dL 11.4 - 15.2 g/dL [facility] Immature granulocytes (Bld) [#/Vol] K/uL NINF - 0.08 K/uL [facility] Immature granulocytes/100 WBC (Bld) 0.3 % [facility] Lymphocytes (Bld) [#/Vol] 3.23 10*3/uL 1.16 - 3.51 K/uL [facility] Lymphocytes/100 WBC (Bld) 35.2 % [facility] MCH (RBC) [Entitic mass] 30.6 pg 25.9 - 33.9 pg [facility] MCHC (RBC) [Mass/Vol] 32.8 g/dL 31.4 - 35.9 g/dL [facility] MCV (RBC) [Entitic vol] 93.2 fL 79.6 - 97.7 fL [facility] Monocytes (Bld) [#/Vol] 0.82 10*3/uL 0.22 - 0.87 K/uL [facility] Monocytes/100 WBC (Bld) 8.9 % [facility] Neutrophils (Bld) [#/Vol] 4.77 10*3/uL 1.64 - 7.28 K/uL [facility] Nucleated RBC/100 WBC (Bld) [Ratio] 0.0 % NINF [facility] Platelet mean volume (Bld) [Entitic vol] 10.4 fL 8.5 - 12.2 fL [facility] Platelets (Bld) [#/Vol] 265 10*3/uL 150 - 393 K/uL [facility] RBC (Bld) [#/Vol] 4.41 10*6/uL [facility] Segmented neutrophils/100 WBC (Bld) 52.0 % [facility] WBC (Bld) [#/Vol] 9.18 10*3/uL 3.99 - 11.19 K/uL [facility] Basophils (Bld) [#/Vol] 0.04 10*3/uL Normal 0.00-0.15 [facility] Comment on above: Performed By: #### I PB, MGO, HDLT #### [facility] (DEFAULT) [address] [place] [address] 09751 Basophils/100 WBC (Bld) 0.4 % Normal [facility] Comment on above: Performed By: #### I PB, MGO, HDLT #### [facility] (DEFAULT) [address] [place] [address] 99264 DIFF STATUS Electronic Differential Normal [facility] Comment on above: Performed By: #### I PB, MGO, HDLT #### [facility] (DEFAULT) [address] [place] [address] 93640 Eosinophils (Bld) [#/Vol] 0.29 10*3/uL Normal 0.00-0.42 [facility] Comment on above: Performed By: #### I PB, MGO, HDLT #### [facility] (DEFAULT) [address] [address] Eosinophils/100 WBC (Bld) 3.2 % Normal [facility] Comment on above: Performed By: #### I PB, MGO, HDLT #### [facility] (DEFAULT) [address] [place] [address] 08009 Hematocrit (Bld) [Volume fraction] 41.1 % Normal 34.9-44.3 [facility] Comment on above: Performed By: #### I PB, MGO, HDLT #### [facility] (DEFAULT) [address] [place] [address] 42253 Hemoglobin (Bld) [Mass/Vol] 13.5 g/dL Normal 11.4-15.2 [facility] Comment on above: Performed By: #### I PB, MGO, HDLT #### [facility] (DEFAULT) [address] [place] [address] 06179 Immature Grans % 0.3 % Normal [facility] Comment on above: Performed By: #### I PB, MGO, HDLT #### [facility] (DEFAULT) [address] [place] [address] 89706 Immature Grans Absolute < Normal <=0.08 [facility] Comment on above: Performed By: #### I PB, MGO, HDLT #### [facility] (DEFAULT) [address] [place] [address] 28930 Lymphocytes (Bld) [#/Vol] 3.23 10*3/uL Normal 1.16-3.51 [facility] Comment on above: Performed By: #### I PB, MGO, HDLT #### [facility] (DEFAULT) [address] [place] [address] 87572 Lymphocytes/100 WBC (Bld) 35.2 % Normal [facility] Comment on above: Performed By: #### I PB, MGO, HDLT #### [facility] (DEFAULT) [address] [place] [address] 50078 MCV (RBC) [Entitic vol] 93.2 fL Normal 79.6-97.7 [facility] Comment on above: Performed By: #### I PB, MGO, HDLT #### [facility] (DEFAULT) [address] [place] [address] 19708 Mean Cell Hgb 30.6 pg Normal 25.9-33.9 [facility] Comment on above: Performed By: #### I PB, MGO, HDLT #### [facility] (DEFAULT) [address] [place] [address] 60746 Mean Cell Hgb Conc 32.8 g/dL Normal 31.4-35.9 [facility] Comment on above: Performed By: #### I PB, MGO, HDLT #### [facility] (DEFAULT) [address] [place] [address] 89801 Monocytes (Bld) [#/Vol] 0.82 10*3/uL Normal 0.22-0.87 [facility] Comment on above: Performed By: #### I PB, MGO, HDLT #### [facility] (DEFAULT) [address] [place] [address] 58000 Monocytes/100 WBC (Bld) 8.9 % Normal [facility] Comment on above: Performed By: #### I PB, MGO, HDLT #### [facility] (DEFAULT) [address] [place] [address] 86933 Nucleated RBC 0.0 /100 WBC Normal <=0.2 [facility] Comment on above: Performed By: #### I PB, MGO, HDLT #### [facility] (DEFAULT) [address] [place] [address] 99306 Platelet mean volume (Bld) [Entitic vol] 10.4 fL Normal 8.5-12.2 [facility] Comment on above: Performed By: #### I PB, MGO, HDLT #### [facility] (DEFAULT) [address] [place] [address] 29756 Platelets (Bld) [#/Vol] 265 10*3/uL Normal 150-393 [facility] Comment on above: Performed By: #### I PB, MGO, HDLT #### [facility] (DEFAULT) [address] [place] [address] 24012 RBC (Bld) [#/Vol] 4.41 10*6/uL Normal 3.91-5.04 [facility] Comment on above: Performed By: #### I PB, MGO, HDLT #### [facility] (DEFAULT) [address] [place] [address] 33515 RBC Distribution 12.3 % Normal 10.8-14.9 [facility] Comment on above: Performed By: #### I PB, MGO, HDLT #### [facility] (DEFAULT) [address] [place] [address] 08758 Segs + Bands Auto 52.0 % Normal [facility] Comment on above: Performed By: #### I PB, MGO, HDLT #### [facility] (DEFAULT) [address] [place] [address] 81007 Segs + Bands,Absolute Auto 4.77 K/uL Normal 1.64-7.28 [facility] Comment on above: Performed By: #### I PB, MGO, HDLT #### [facility] (DEFAULT) [address] [place] [address] 34460 WBC (Bld) [#/Vol] 9.18 10*3/uL Normal 3.99-11.19 [facility] Comment on above: Performed By: #### I PB, MGO, HDLT #### [facility] (DEFAULT) [address] [place] [address] 89451 CHEM 7 (LYTES,BUN,CREA,GLUC) on 12-05-2024 Anion gap [Moles/Vol] 15 mmol/L 7 - 17 mmol/L [facility] Chloride [Moles/Vol] 101 mmol/L 98 - 10 8 mmol/L [facility] CO2 [Moles/Vol] 28 mmol/L 21 - 31 mmol/L [facility] Creatinine [Mass/Vol] 1.47 mg/dL High 0.50 - 1.20 mg/dL [facility] eGFR, CKD-EPI, Female 39 Low - PINF [facility] Comment on above: Reported eGFR is bas ed on the CKD-EPI 2020 equation using creatinine, age, and sex. Glucose [Mass/Vol] 111 mg/dL High 70 - 99 mg/dL [facility] Interpretation and review of laboratory results Abnormal [facility] Osmolality Calc [Osmolality] 301 [facility] Potassium [Moles/Vol] 4.4 mmol/L 3.5 - 5.0 mmol/L [facility] Sodium [Moles/Vol] 140 mmol/L 135 - 145 mmol/L [facility] Urea nitrogen [Mass/Vol] 32 mg/dL High 7 - 25 mg/dL [facility] Urea nitrogen/Creatinine [Mass ratio] 22 mg/mg [facility] Anion gap [Moles/Vol] 15 mmol/L Normal 7-17 [facility] Comment on above: Performed By: #### L [id number] #### [facility] (DEFAULT) [address] [place] [address] 60313 Chloride [Moles/Vol] 101 mmol/L Normal 98-108 [facility] Comment on above: Performed By: #### L [id number] #### [facility] (DEFAULT) [address] [place] [address] CO2 [Moles/Vol] 28 mmol/L Normal 21-31 [facility] Comment on above: Performed By: #### L [id number] #### [facility] (DEFAULT) [address] [place] [address] Creatinine [Mass/Vol] 1.47 mg/dL High 0.50-1.20 [facility] Comment on above: Performed By: #### L [id number] #### [facility] (DEFAULT) [address] [place] [address] 29724 GFR/1.73 sq M.predicted among non-blacks MDRD (S/P/Bld) [Vol rate/Area] 37 mL/min/{1.73_m2} Low >=60 [facility] Comment on above: Result Comment: Repo rted eGFR is based on the CKD-EPI 2020 equation using creatinine, age, and sex. Performed By: #### L [id number] #### [facility] (DEFAULT) [address] [place] [address] 96356 Glucose [Mass/Vol] 111 mg/dL High 70-99 [facility] Comment on above: Performed By: #### L [id number] #### [facility] (DEFAULT) [address] [place] [address] 21499 Osmolality [Osmolality] 301 mosm/kg Normal 278-305 [facility] Comment on above: Performed By: #### L [id number] #### [facility] (DEFAULT) [address] [place] [address] Potassium [Moles/Vol] 4.4 mmol/L Normal 3.5-5.0 [facility] Comment on above: Performed By: #### L [id number] #### [facility] (DEFAULT) [address] [address] Sodium [Moles/Vol] 140 mmol/L Normal 135-145 [facility] Comment on above: Performed By: #### L [id number] #### [facility] (DEFAULT) [address] [address] Urea nitrogen [Mass/Vol] 32 mg/dL High 7-25 [facility] Comment on above: Performed By: #### L [id number] #### [facility] (DEFAULT) [address] [place] [address]68 Urea nitrogen/Creatinine [Mass ratio] 22 mg/mg Normal [facility] Comment on above: Performed By: #### L [id number] #### [facility] (DEFAULT) [address] [place] [id number] ECGOrdered By: David barrera 04-15-2024 [facility] Work Phone: EP CARDIOVERSION EXTERNALon 04-15-2024 Radiology Study observation (narrative) [facility] MAGNESIUMon 04-15-2024 Interpretation and review of laboratory results Normal [facility] Magnesium [Mass/Vol] 2.2 mg/dL 1.6 - 2 .6 mg/dL [facility] Magnesium [Mass/Vol] 2.2 mg/dL Normal 1.6-2.6 [facility] Comment on above: Performed By: #### L [id number] #### [facility] (DEFAULT) [address] [place] [address] No Panel Informationon 04-15 [facility] CBC AND ELECTRONIC DIFFon Basophils (Bld) [#/Vol] 0.05 10*3/uL 0.00 - 0.15 K/uL [facility] Basophils/100 WBC (Bld) 0.6 % [facility] Differential cell count method Nom (Bld) Electronic Differential [facility] Eosinophils (Bld) [#/Vol] 0.34 10*3/uL 0.00 - 0.42 K/uL [facility] Eosinophils/100 WBC (Bld) 3.9 % [facility] Erythrocyte distribution width (RBC) [Ratio] 12.5 % 10.8 - 14.9 % [facility] Hematocrit (Bld) [Volume fraction] 39.9 % 34.9 - 44.3 % [facility] Hemoglobin (Bld) [Mass/Vol] 13.0 g/dL 11.4 - 15.2 g/dL [facility] Immature granulocytes (Bld) [#/Vol] K/uL NINF - 0.08 K/uL [facility] Immature granulocytes/100 WBC (Bld) 0.3 % [facility] Lymphocytes (Bld) [#/Vol] 3.15 10*3/uL 1.16 - 3.51 K/uL [facility] Lymphocytes/100 WBC (Bld) 36.4 % [facility] MCH (RBC) [Entitic mass] 30.0 pg 25.9 - 33.9 pg [facility] MCHC (RBC) [Mass/Vol] 32.6 g/dL 31.4 - 35.9 g/dL [facility] MCV (RBC) [Entitic vol] 92.1 fL 79.6 - 97.7 fL [facility] Monocytes (Bld) [#/Vol] 0.76 10*3/uL 0.22 - 0.87 K/uL [facility] Monocytes/100 WBC (Bld) 8.8 % [facility] Neutrophils (Bld) [#/Vol] 4.33 10*3/uL 1.64 - 7.28 K/uL [facility] Nucleated RBC/100 WBC (Bld) [Ratio] 0.0 % BANNERF [facility] Platelet mean volume (Bld) [Entitic vol] 10.0 fL 8.5 - 12.2 fL [facility] Platelets (Bld) [#/Vol] 255 10*3/uL 150 - 393 K/uL [facility] RBC (Bld) [#/Vol] 4.33 10*6/uL [facility] Segmented neutrophils/100 WBC (Bld) 50.0 % [facility] WBC (Bld) [#/Vol] 8.66 10*3/uL 3.99 - 11.19 K/uL [facility] Basophils (Bld) [#/Vol] 0.05 10*3/uL Normal 0.00-0.15 [facility] Comment on above: Performed By: #### L [id number] #### [facility] (DEFAULT) [address] [place] [address] Basophils/100 WBC (Bld) 0.6 % Normal [facility] Comment on above: Performed By: #### L [id number] #### [facility] (DEFAULT) [address] [place] [address] DIFF STATUS Electronic Differential Normal [facility] Comment on above: Performed By: #### L [id number] #### [facility] (DEFAULT) [address] [place] [address] Eosinophils (Bld) [#/Vol] 0.34 10*3/uL Normal 0.00-0.42 [facility] Comment on above: Performed By: #### L [id number] #### [facility] (DEFAULT) [address] [address] Eosinophils/100 WBC (Bld) 3.9 % Normal [facility] Comment on above: Performed By: #### L [id number] #### [facility] (DEFAULT) [address] [place] [address] Hematocrit (Bld) [Volume fraction] 39.9 % Normal 34.9-44.3 [facility] Comment on above: Performed By: #### L [id number] #### [facility] (DEFAULT) [address] [place] [address] Hemoglobin (Bld) [Mass/Vol] 13.0 g/dL Normal 11.4-15.2 [facility] Comment on above: Performed By: #### L [id number] #### [facility] (DEFAULT) [address] [place] [address] 21827 Immature Grans % 0.3 % Normal [facility] Comment on above: Performed By: #### L [id number] #### [facility] (DEFAULT) [address] [address] Immature Grans Absolute < Normal <=0.08 [facility] Comment on above: Performed By: #### L [id number] #### [facility] (DEFAULT) [address] [place] [address] Lymphocytes (Bld) [#/Vol] 3.15 10*3/uL Normal 1.16-3.51 [facility] Comment on above: Performed By: #### L [id number] #### [facility] (DEFAULT) [address] [address] Lymphocytes/100 WBC (Bld) 36.4 % Normal [facility] Comment on above: Performed By: #### L [id number] #### [facility] (DEFAULT) [address] [place] [address] MCV (RBC) [Entitic vol] 92.1 fL Normal 79.6-97.7 [facility] Comment on above: Performed By: #### L [id number] #### [facility] (DEFAULT) [address] [address] Mean Cell Hgb 30.0 pg Normal 25.9-33.9 [facility] Comment on above: Performed By: #### L [id number] #### [facility] (DEFAULT) [address] [address] Mean Cell Hgb Conc 32.6 g/dL Normal 31.4-35.9 [facility] Comment on above: Performed By: #### L [id number] #### [facility] (DEFAULT) [address] [address] Monocytes (Bld) [#/Vol] 0.76 10*3/uL Normal 0.22-0.87 [facility] Comment on above: Performed By: #### L [id number] #### [facility] (DEFAULT) [address] [address] Monocytes/100 WBC (Bld) 8.8 % Normal [facility] Comment on above: Performed By: #### L [id number] #### [facility] (DEFAULT) [address] [place] [address] Nucleated RBC 0.0 /100 WBC Normal <=0.2 [facility] Comment on above: Performed By: #### L [id number] #### [facility] (DEFAULT) [address] [place] [address] Platelet mean volume (Bld) [Entitic vol] 10.0 fL Normal 8.5-12.2 [facility] Comment on above: Performed By: #### L [id number] #### [facility] (DEFAULT) [address] [place] [address] Platelets (Bld) [#/Vol] 255 10*3/uL Normal 150-393 [facility] Comment on above: Performed By: #### L [id number] #### [facility] (DEFAULT) [address] [place] [address]26 RBC (Bld) [#/Vol] 4.33 10*6/uL Normal 3.91-5.04 [facility] Comment on above: Performed By: #### L [id number] #### [facility] (DEFAULT) [address] [place] [address]39 RBC Distribution 12.5 % Normal 10.8-14.9 [facility] Comment on above: Performed By: #### L [id number] #### [facility] (DEFAULT) [address] [place] [address]61 Segs + Bands Auto 50.0 % Normal [facility] Comment on above: Performed By: #### L [id number] #### [facility] (DEFAULT) [address] [place] [address] Segs + Bands,Absolute Auto 4.33 K/uL Normal 1.64-7.28 [facility] Comment on above: Performed By: #### L [id number] #### [facility] (DEFAULT) [address] [place] [address] WBC (Bld) [#/Vol] 8.66 10*3/uL Normal 3.99-11.19 [facility] Comment on above: Performed By: #### L [id number] #### [facility] (DEFAULT) [address] [place] [address] CHEM 7 (LYTES,BUN,CREA,GLUC) on 04-14-2024 Anion gap [Moles/Vol] 13 mmol/L 7 - 17 mmol/L [facility] Chloride [Moles/Vol] 98 mmol/L 98 - 10 8 mmol/L [facility] CO2 [Moles/Vol] 33 mmol/L High 21 - 31 mmol/L [facility] Creatinine [Mass/Vol] 1.08 mg/dL 0.50 - 1.20 mg/dL [facility] eGFR, CKD-EPI, Female 55 Low - PINF [facility] Comment on above: Reported eGFR is bas ed on the CKD-EPI 2020 equation using creatinine, age, and sex. Glucose [Mass/Vol] 110 mg/dL High 70 - 99 mg/dL [facility] Interpretation and review of laboratory results Abnormal [facility] Osmolality Calc [Osmolality] 301 [facility] Potassium [Moles/Vol] 4.3 mmol/L 3.5 - 5.0 mmol/L [facility] Sodium [Moles/Vol] 140 mmol/L 135 - 145 mmol/L [facility] Urea nitrogen [Mass/Vol] 32 mg/dL High 7 - 25 mg/dL [facility] Urea nitrogen/Creatinine [Mass ratio] 30 mg/mg [facility] Anion gap [Moles/Vol] 13 mmol/L Normal 7-17 [facility] Comment on above: Performed By: #### U R #### [facility] (DEFAULT) [address] [place] [address] Chloride [Moles/Vol] 98 mmol/L Normal 98-108 [facility] Comment on above: Performed By: #### U R #### [facility] (DEFAULT) [address] [place] [address] CO2 [Moles/Vol] 33 mmol/L High 21-31 [facility] Comment on above: Performed By: #### U R #### [facility] (DEFAULT) [address] [place] [address] Creatinine [Mass/Vol] 1.08 mg/dL Normal 0.50-1.20 [facility] Comment on above: Performed By: #### U R #### [facility] (DEFAULT) [address] [address] GFR/1.73 sq M.predicted among non-blacks MDRD (S/P/Bld) [Vol rate/Area] 53 mL/min/{1.73_m2} Low >=60 [facility] Comment on above: Result Comment: Repo rted eGFR is based on the CKD-EPI 2020 equation using creatinine, age, and sex. Performed By: #### U R #### [facility] (DEFAULT) [address] [address] Glucose [Mass/Vol] 110 mg/dL High 70-99 [facility] Comment on above: Performed By: #### U R #### [facility] (DEFAULT) [address] [address] Osmolality [Osmolality] 301 mosm/kg Normal 278-305 [facility] Comment on above: Performed By: #### U R #### [facility] (DEFAULT) [address] [address] Potassium [Moles/Vol] 4.3 mmol/L Normal 3.5-5.0 [facility] Comment on above: Performed By: #### U R #### [facility] (DEFAULT) [address] [place] [address] Sodium [Moles/Vol] 140 mmol/L Normal 135-145 [facility] Comment on above: Performed By: #### U R #### [facility] (DEFAULT) [address] [address] Urea nitrogen [Mass/Vol] 32 mg/dL High 7-25 [facility] Comment on above: Performed By: #### U R #### [facility] (DEFAULT) [address] [address] Urea nitrogen/Creatinine [Mass ratio] 30 mg/mg Normal [facility] Comment on above: Performed By: #### U R #### [facility] (DEFAULT) [address] [address] Cardiac echo study Procedure Ordered By: Mata Jean Baptiste on 04-14-2024 Ao ASC [facility] 1.99 [facility]: [phone] Ao peak maria elena 1.20 m/s [facility] Work Phone: [phone] Ao SOV index 1.76 cm/m2 [facility] Work Phone: [phone] Ao STJ index 1.65 cm/m2 [facility] Work Phone: [phone] Ao VTI 17.44 cm [facility] Work Phone: [phone] Ascending [facility] 3.15 [facility] [phone] AV LVOT peak gradient 2 mmHg [facility] Work Phone: [phone] [facility]: [phone] AV peak gradient 6 mmHG [facility] Work Phone: [phone] AV valve area 1.35 cm2 [facility] Work Phone: [phone] AV Velocity Ratio 0.58 [facility] Work Phone: [phone] RHONDA (continuity Vmax) 1.31 cm2 [facility] Work Phone: [phone] RHONDA (continuity VTI) 1.35 cm2 [facility] Work Phone: [phone] RHONDA index (continuity Vmax) 0.83 m/s [facility] Work Phone: [phone] RHONDA index (continuity VTI) 0.85 cm2/m2 [facility] Work Phone: [phone] Body surface area Derived from formula 1.58 m2 [facility] Work Phone: [phone] DI (Vmax) 0.58 [facility] Work Phone: [phone] DI (VTI) 0.60 m/2 [facility] Work Phone: [phone] EST RAP 5 mmHg [facility] Work Phone: [phone] EST RVSP 32 mmHg [facility] Work Phone: [phone] FS 25 % [facility] Work Phone: [phone] IVC ostium 1.46 cm [facility] Work Phone: [phone] IVS 0.76 cm [facility] Work Phone: [phone] LA ESV BP (MOD) 91 mL [facility] Work Phone: [phone] LA ESV BP (MOD) index 58 mL/m2 [facility] Work Phone: [phone] LA ESV SP 2CH (MOD) 65 mL [facility] Work Phone: [phone] LA ESV SP 4CH (MOD) 117 mL [facility]: [phone] LV mass 128.08 g [facility] Work Phone: [phone] LV Mass Index 81.1 g/m2 [facility] Work Phone: [phone] LV RWT 0.30 [facility] Work Phone: LVIDD 5.02 cm [facility] Work Phone: LVIDS 3.78 cm [facility] Work Phone: LVOT area 2.24 cm2 [facility] Work Phone: [phone] LVOT diameter 1.69 cm [facility] Work [facility]: LVOT peak maria elena 0.70 m/s [facility] Work Phone: LVOT peak VTI 10.48 cm [facility] Work Phone: LVOT stroke volume 23 cm3 [facility] Work Phone: [phone] LVOT stroke volume index 14.87 ml/m2 [facility] Work Phone: [phone] [facility] AV VTI RATIO PRE STRESS 0.60 [facility] Work Phone: PV peak gradient 2 [facility]: PV PK MARIA ELENA 0.72 m/s [facility] Work Phone: [phone] PW 0.76 cm [facility] Work Phone: RA vol index 4CH (MOD) 36.08 mL/m2 [facility] Work Phone: Right atrium volume 4 chamber method of disks 57 mL [facility] Work Phone: RV Area diastolic 18.87 cm2 [facility] Work Phone: RV Area systolic 16.19 cm2 [facility] Work Phone: RV basal diam 4.57 cm [facility] Work Phone: RV Fractional area change 14.2 % [facility] Work Phone: RV long diam 6.23 cm [facility] Work Phone: RV mid diam 3.23 cm [facility] Work Phone: RV S' 11.49 cm/s [facility] Work Phone: RVOT peak gradient 1 [facility]: RVOT peak maria elena 0.59 m/s [facility] Work Phone: [phone] Sinus 2.78 cm [facility] Work Phone: [phone] STJ 2.60 cm [facility] Work Phone: [phone] Stroke Volume 23 cm/mL [facility] Work Phone: [phone] Stroke volume index 15 [facility] Work Phone: [phone] TAPSE 0.81 cm [facility] Work Phone: [phone] TR pk grad 27 mmHg [facility] Work Phone: [phone] pk maria elena 2.59 m/s [facility] Work Phone: [phone] TV rest pulmonary artery pressure 31.80 mmHg [facility] Work Phone: [facility] Work Phone: Cardiac echo study Procedure on 04-14-2024 Normal left ventricular size with mild global [...] poor cardiac windows. Imaging system used: Siemens. [facility] Radiology Study observation (narrative) [facility] ECHOCARDIOGRAMon 04-14-2024 Echocardiography Normal left ventricular size with mild global [...] the original result were not included. Facility [facility] Patient Information Patient Name Elizabeth Persaud [...] Read Date Mata Jean Baptiste MD Echo [place] 04/14/2024 Left Heart Measurements LV - Systole [...] ECHO TESTING, (more content not included)... Normal [facility] EP CARDIOVERSION EXTERNALon 04-14-2024 EP CARDIOVERSION EXTERNAL Successful cardioversion of atrial fibrillation to normal sinus rhythm Recommendations: Continue anticoagulation Table formatting from the original result was not included. Elizabeth Persaud EP Procedure - EPS/Ablation/Device Ordering Physician: LANDON ADHIKARI Order #: [id number] Study Date: 04/13/2024 Patient Information Name MRN Description Elizabeth Steen Hung [id number] 78 y.o. female Physicians Panel Physicians Referring [...] consent and permission to proceed was given. Cardioversion/Defibril lation Arrhythmia Type: atrial fibrillation. Method of Cardioversion: [...] no ABN associated with this order. Normal [facility] Successful cardioversion of atrial fibrillation to normal sinus rhythm Recommendations: Continue anticoagulation [facility] EP CARDIOVERSION EXTERNALOrd ered By: Hai Tovar on 04-14-2024 Body surface area Derived from formula 1.57 m2 [facility] Work Phone: [facility] Work Phone: MAGNESIUMon 04-14-2024 Interpretation and review of laboratory results Normal [facility] Magnesium [Mass/Vol] 2.1 mg/dL 1.6 - 2 .6 mg/dL [facility] Magnesium [Mass/Vol] 2.1 mg/dL Normal 1.6-2.6 [facility] Comment on above: Performed By: #### U R #### [facility] (DEFAULT) [address] [place] [address] No Panel Informationon 04-14 [facility] CALCIUMon 04-13-2024 Calcium [Mass/Vol] 10.2 mg/dL 8.6 - 10. 5 mg/dL [facility] Interpretation and review of laboratory results Normal [facility] Calcium [Mass/Vol] 10.2 mg/dL Normal 8.6-10.5 [facility] Comment on above: Performed By: #### I PB, MGO, HDLT #### [facility] (DEFAULT) [address] [place] [address] CBC AND ELECTRONIC DIFFon Basophils (Bld) [#/Vol] K/uL 0.00 - 0.15 K/uL [facility] Basophils/100 WBC (Bld) 0.3 % [facility] Differential cell count method Nom (Bld) Electronic Differential [facility] Eosinophils (Bld) [#/Vol] 0.28 10*3/uL 0.00 - 0.42 K/uL [facility] Eosinophils/100 WBC (Bld) 3.1 % [facility] Erythrocyte distribution width (RBC) [Ratio] 12.3 % 10.8 - 14.9 % [facility] Hematocrit (Bld) [Volume fraction] 42.1 % 34.9 - 44.3 % [facility] Hemoglobin (Bld) [Mass/Vol] 13.9 g/dL 11.4 - 15.2 g/dL [facility] Immature granulocytes (Bld) [#/Vol] K/uL NINF - 0.08 K/uL [facility] Immature granulocytes/100 WBC (Bld) 0.2 % [facility] Lymphocytes (Bld) [#/Vol] 3.18 10*3/uL 1.16 - 3.51 K/uL [facility] Lymphocytes/100 WBC (Bld) 35.4 % [facility] MCH (RBC) [Entitic mass] 30.3 pg 25.9 - 33.9 pg [facility] MCHC (RBC) [Mass/Vol] 33.0 g/dL 31.4 - 35.9 g/dL [facility] MCV (RBC) [Entitic vol] 91.7 fL 79.6 - 97.7 fL [facility] Monocytes (Bld) [#/Vol] 0.73 10*3/uL 0.22 - 0.87 K/uL [facility] Monocytes/100 WBC (Bld) 8.1 % [facility] Neutrophils (Bld) [#/Vol] 4.74 10*3/uL 1.64 - 7.28 K/uL [facility] Nucleated RBC/100 WBC (Bld) [Ratio] 0.0 % [facility] Platelet mean volume (Bld) [Entitic vol] 10.0 fL 8.5 - 12.2 fL [facility] Platelets (Bld) [#/Vol] 290 10*3/uL 150 - 393 K/uL [facility] RBC (Bld) [#/Vol] 4.59 10*6/uL [facility] Segmented neutrophils/100 WBC (Bld) 52.9 % [facility] WBC (Bld) [#/Vol] 8.98 10*3/uL 3.99 - 11.19 K/uL [facility] Abs Baso Auto < Normal 0.00-0.15 [facility] Comment on above: Performed By: #### L [id number] #### [facility] (DEFAULT) [address] [place] [address] Basophils/100 WBC (Bld) 0.3 % Normal [facility] Comment on above: Performed By: #### L [id number] #### [facility] (DEFAULT) [address] [place] [address] DIFF STATUS Electronic Differential Normal [facility] Comment on above: Performed By: #### L [id number] #### [facility] (DEFAULT) [address] [place] [address] 64371 Eosinophils (Bld) [#/Vol] 0.28 10*3/uL Normal 0.00-0.42 [facility] Comment on above: Performed By: #### L [id number] #### [facility] (DEFAULT) [address] [place] [address] 98711 Eosinophils/100 WBC (Bld) 3.1 % Normal [facility] Comment on above: Performed By: #### L [id number] #### [facility] (DEFAULT) [address] [place] [address] 12691 Hematocrit (Bld) [Volume fraction] 42.1 % Normal 34.9-44.3 [facility] Comment on above: Performed By: #### L [id number] #### [facility] (DEFAULT) [address] [place] [address] 74394 Hemoglobin (Bld) [Mass/Vol] 13.9 g/dL Normal 11.4-15.2 [facility] Comment on above: Performed By: #### L [id number] #### [facility] (DEFAULT) [address] [place] [address] 26745 Immature Grans % 0.2 % Normal [facility] Comment on above: Performed By: #### L [id number] #### [facility] (DEFAULT) [address] [place] [address] 42449 Immature Grans Absolute < Normal <=0.08 [facility] Comment on above: Performed By: #### L [id number] #### [facility] (DEFAULT) [address] [place] [address] 60940 Lymphocytes (Bld) [#/Vol] 3.18 10*3/uL Normal 1.16-3.51 [facility] Comment on above: Performed By: #### L [id number] #### [facility] (DEFAULT) [address] [place] [address] 02553 Lymphocytes/100 WBC (Bld) 35.4 % Normal [facility] Comment on above: Performed By: #### L [id number] #### [facility] (DEFAULT) [address] [place] [address] 98738 MCV (RBC) [Entitic vol] 91.7 fL Normal 79.6-97.7 [facility] Comment on above: Performed By: #### L [id number] #### [facility] (DEFAULT) [address] [place] [address] 06956 Mean Cell Hgb 30.3 pg Normal 25.9-33.9 [facility] Comment on above: Performed By: #### L [id number] #### [facility] (DEFAULT) [address] [place] [address] 57373 Mean Cell Hgb Conc 33.0 g/dL Normal 31.4-35.9 [facility] Comment on above: Performed By: #### L [id number] #### [facility] (DEFAULT) [address] [place] [address] 45088 Monocytes (Bld) [#/Vol] 0.73 10*3/uL Normal 0.22-0.87 [facility] Comment on above: Performed By: #### L [id number] #### [facility] (DEFAULT) [address] [place] [address] 10098 Monocytes/100 WBC (Bld) 8.1 % Normal [facility] Comment on above: Performed By: #### L [id number] #### [facility] (DEFAULT) [address] [place] [address] 77987 Nucleated RBC 0.0 /100 WBC Normal <=0.2 [facility] Comment on above: Performed By: #### L [id number] #### [facility] (DEFAULT) [address] [place] [address] 62347 Platelet mean volume (Bld) [Entitic vol] 10.0 fL Normal 8.5-12.2 [facility] Comment on above: Performed By: #### L [id number] #### [facility] (DEFAULT) [address] [place] [address] 95201 Platelets (Bld) [#/Vol] 290 10*3/uL Normal 150-393 [facility] Comment on above: Performed By: #### L [id number] #### [facility] (DEFAULT) [address] [address] RBC (Bld) [#/Vol] 4.59 10*6/uL Normal 3.91-5.04 [facility] Comment on above: Performed By: #### L [id number] #### [facility] (DEFAULT) [address] [place] [address] 16592 RBC Distribution 12.3 % Normal 10.8-14.9 [facility] Comment on above: Performed By: #### L [id number] #### [facility] (DEFAULT) [address] [place] [address] 11223 Segs + Bands Auto 52.9 % Normal [facility] Comment on above: Performed By: #### L [id number] #### [facility] (DEFAULT) [address] [place] [address] 54573 Segs + Bands,Absolute Auto 4.74 K/uL Normal 1.64-7.28 [facility] Comment on above: Performed By: #### L [id number] #### [facility] (DEFAULT) [address] [place] [address] 49743 WBC (Bld) [#/Vol] 8.98 10*3/uL Normal 3.99-11.19 [facility] Comment on above: Performed By: #### L [id number] #### [facility] (DEFAULT) [address] [place] [address] 39823 Basophils (Bld) [#/Vol] 0.04 10*3/uL 0.00 - 0.15 K/uL [facility] Basophils/100 WBC (Bld) 0.3 % [facility] Differential cell count method Nom (Bld) Electronic Differential [facility] Eosinophils (Bld) [#/Vol] 0.26 10*3/uL 0.00 - 0.42 K/uL [facility] Eosinophils/100 WBC (Bld) 2.2 % [facility] Erythrocyte distribution width (RBC) [Ratio] 12.2 % 10.8 - 14.9 % [facility] Hematocrit (Bld) [Volume fraction] 43.9 % 34.9 - 44.3 % [facility] Hemoglobin (Bld) [Mass/Vol] 14.7 g/dL 11.4 - 15.2 g/dL [facility] Immature granulocytes (Bld) [#/Vol] 0.05 10*3/uL NINF - 0.08 K/uL [facility] Immature granulocytes/100 WBC (Bld) 0.4 % [facility] Interpretation and review of laboratory results Abnormal [facility] Lymphocytes (Bld) [#/Vol] 3.45 10*3/uL 1.16 - 3.51 K/uL [facility] Lymphocytes/100 WBC (Bld) 29.6 % [facility] MCH (RBC) [Entitic mass] 30.4 pg 25.9 - 33.9 pg [facility] MCHC (RBC) [Mass/Vol] 33.5 g/dL 31.4 - 35.9 g/dL [facility] MCV (RBC) [Entitic vol] 90.7 fL 79.6 - 97.7 fL [facility] Monocytes (Bld) [#/Vol] 0.88 10*3/uL High 0.22 - 0.87 K/uL [facility] Monocytes/100 WBC (Bld) 7.5 % O [facility] Neutrophils (Bld) [#/Vol] 6.99 10*3/uL 1.64 - 7.28 K/uL [facility] Nucleated RBC/100 WBC (Bld) [Ratio] 0.0 % NINF [facility] Platelet mean volume (Bld) [Entitic vol] 10.2 fL 8.5 - 12.2 fL [facility] Platelets (Bld) [#/Vol] 301 10*3/uL 150 - 393 K/uL [facility] RBC (Bld) [#/Vol] 4.84 10*6/uL [facility] Segmented neutrophils/100 WBC (Bld) 60.0 % [facility] WBC (Bld) [#/Vol] 11.67 10*3/uL High 3.99 - 11.19 K/uL [facility] Basophils (Bld) [#/Vol] 0.04 10*3/uL Normal 0.00-0.15 [facility] Comment on above: Performed By: #### L [id number] #### [facility] (DEFAULT) [address] [place] [address] Basophils/100 WBC (Bld) 0.3 % Normal [facility] Comment on above: Performed By: #### L [id number] #### [facility] (DEFAULT) [address] [place] [address] 20943 DIFF STATUS Electronic Differential Normal [facility] Comment on above: Performed By: #### L [id number] #### [facility] (DEFAULT) [address] [place] [address] 60817 Eosinophils (Bld) [#/Vol] 0.26 10*3/uL Normal 0.00-0.42 [facility] Comment on above: Performed By: #### L [id number] #### [facility] (DEFAULT) [address] [place] [address] 68630 Eosinophils/100 WBC (Bld) 2.2 % Normal [facility] Comment on above: Performed By: #### L [id number] #### [facility] (DEFAULT) [address] [place] [address] 42390 Hematocrit (Bld) [Volume fraction] 43.9 % Normal 34.9-44.3 [facility] Comment on above: Performed By: #### L [id number] #### [facility] (DEFAULT) [address] [place] [address] 22110 Hemoglobin (Bld) [Mass/Vol] 14.7 g/dL Normal 11.4-15.2 [facility] Comment on above: Performed By: #### L [id number] #### [facility] (DEFAULT) [address] [place] [address] 24453 Immature Grans % 0.4 % Normal [facility] Comment on above: Performed By: #### L [id number] #### [facility] (DEFAULT) [address] [address] Immature Grans Absolute 0.05 K/uL Normal <=0.08 [facility] Comment on above: Performed By: #### L [id number] #### [facility] (DEFAULT) [address] [place] [address] 25824 Lymphocytes (Bld) [#/Vol] 3.45 10*3/uL Normal 1.16-3.51 [facility] Comment on above: Performed By: #### L [id number] #### [facility] (DEFAULT) [address] [address] Lymphocytes/100 WBC (Bld) 29.6 % Normal [facility] Comment on above: Performed By: #### L [id number] #### [facility] (DEFAULT) [address] [address] MCV (RBC) [Entitic vol] 90.7 fL Normal 79.6-97.7 [facility] Comment on above: Performed By: #### L [id number] #### [facility] (DEFAULT) [address] 30872 Mean Cell Hgb 30.4 pg Normal 25.9-33.9 [facility] Comment on above: Performed By: #### L [id number] #### [facility] (DEFAULT) [address] [address]22 Mean Cell Hgb Conc 33.5 g/dL Normal 31.4-35.9 [facility] Comment on above: Performed By: #### L [id number] #### [facility] (DEFAULT) [address] [address] Monocytes (Bld) [#/Vol] 0.88 10*3/uL High 0.22-0.87 [facility] Comment on above: Performed By: #### L [id number] #### [facility] (DEFAULT) [address] [address] Monocytes/100 WBC (Bld) 7.5 % Normal [facility] Comment on above: Performed By: #### L [id number] #### [facility] (DEFAULT) [address] [address] Nucleated RBC 0.0 /100 WBC Normal <=0.2 [facility] Comment on above: Performed By: #### L [id number] #### [facility] (DEFAULT) [address] [place] [address] 02290 Platelet mean volume (Bld) [Entitic vol] 10.2 fL Normal 8.5-12.2 [facility] Comment on above: Performed By: #### L [id number] #### [facility] (DEFAULT) [address] [place] [address] 47106 Platelets (Bld) [#/Vol] 301 10*3/uL Normal 150-393 [facility] Comment on above: Performed By: #### L [id number] #### [facility] (DEFAULT) [address] [place] [address] 50582 RBC (Bld) [#/Vol] 4.84 10*6/uL Normal 3.91-5.04 [facility] Comment on above: Performed By: #### L [id number] #### [facility] (DEFAULT) [address] [place] [address] 41144 RBC Distribution 12.2 % Normal 10.8-14.9 [facility] Comment on above: Performed By: #### L [id number] #### [facility] (DEFAULT) [address] [place] [address] 42883 Segs + Bands Auto 60.0 % Normal [facility] Comment on above: Performed By: #### L [id number] #### [facility] (DEFAULT) [address] [place] [address] 90303 Segs + Bands,Absolute Auto 6.99 K/uL Normal 1.64-7.28 [facility] Comment on above: Performed By: #### L [id number] #### [facility] (DEFAULT) [address] [place] [address] 85455 WBC (Bld) [#/Vol] 11.67 10*3/uL High 3.99-11.19 [facility] Comment on above: Performed By: #### L [id number] #### [facility] (DEFAULT) [address] [place] [address] 47218 CHEM 7 (LYTES,BUN,CREA,GLUC) on 04-13-2024 Anion gap [Moles/Vol] 21 mmol/L High 7 - 17 mmol/L [facility] Chloride [Moles/Vol] 97 mmol/L Low 98 - 10 8 mmol/L [facility] CO2 [Moles/Vol] 27 mmol/L 21 - 31 mmol/L [facility] Creatinine [Mass/Vol] 1.00 mg/dL 0.50 - 1.20 mg/dL [facility] eGFR, CKD-EPI, Female 60 Low - PINF [facility] Comment on above: Reported eGFR is bas ed on the CKD-EPI 2020 equation using creatinine, age, and sex. Glucose [Mass/Vol] 108 mg/dL High 70 - 99 mg/dL [facility] Osmolality Calc [Osmolality] 298 [facility] Potassium [Moles/Vol] 3.6 mmol/L 3.5 - 5.0 mmol/L [facility] Sodium [Moles/Vol] 141 mmol/L 135 - 145 mmol/L [facility] Urea nitrogen [Mass/Vol] 24 mg/dL 7 - 25 mg/dL [facility] Urea nitrogen/Creatinine [Mass ratio] 24 mg/mg [facility] Anion gap [Moles/Vol] 21 mmol/L High 7-17 [facility] Comment on above: Performed By: #### I ABRIL ANDREA HDLT #### [facility] (DEFAULT) [address] [address] Chloride [Moles/Vol] 97 mmol/L Low 98-108 [facility] Comment on above: Performed By: #### I ABRIL ANDREA HDLT #### [facility] (DEFAULT) [address] [place] [address] 62314 CO2 [Moles/Vol] 27 mmol/L Normal 21-31 [facility] Comment on above: Performed By: #### I ABRIL ANDREA HDLT #### [facility] (DEFAULT) [address] [place] [address] 72765 Creatinine [Mass/Vol] 1.00 mg/dL Normal 0.50-1.20 [facility] Comment on above: Performed By: #### MG RIGOO HDLT #### [facility] (DEFAULT) [address] [place] [address] 57456 GFR/1.73 sq M.predicted among non-blacks MDRD (S/P/Bld) [Vol rate/Area] 58 mL/min/{1.73_m2} Low >=60 [facility] Comment on above: Result Comment: Repo rted eGFR is based on the CKD-EPI 2020 equation using creatinine, age, and sex. Performed By: #### I ZULLY MGO HDLT #### [facility] (DEFAULT) [address] [place] [address] 49080 Glucose [Mass/Vol] 108 mg/dL High 70-99 [facility] Comment on above: Performed By: #### Alexander ANDREA MGO HDLT #### [facility] (DEFAULT) [address] [place] [address] 83922 Osmolality [Osmolality] 298 mosm/kg Normal 278-305 [facility] Comment on above: Performed By: #### Alexander ANDREA MGO, HDLT #### [facility] (DEFAULT) [address] [place] [address] 80843 Potassium [Moles/Vol] 3.6 mmol/L Normal 3.5-5.0 [facility] Comment on above: Performed By: #### I PB MGO, HDLT #### [facility] (DEFAULT) [address] [place] [address] 74299 Sodium [Moles/Vol] 141 mmol/L Normal 135-145 [facility] Comment on above: Performed By: #### Alexander PB, MGO, HDLT #### [facility] (DEFAULT) [address] [place] [address] 25264 Urea nitrogen [Mass/Vol] 24 mg/dL Normal 7-25 [facility] Comment on above: Performed By: #### I PB, MGO, HDLT #### [facility] (DEFAULT) [address] [place] [address] 41821 Urea nitrogen/Creatinine [Mass ratio] 24 mg/mg Normal [facility] Comment on above: Performed By: #### I PB, MGO, HDLT #### [facility] (DEFAULT) [address] [place] [address] 13065 EP CARDIOVERSION EXTERNALon 04-13-2024 Radiology Study observation (narrative) [facility] FERRITINon 04-13-2024 Ferritin [Mass/Vol] 113.0 ng/mL 7.3 - 27 0.7 ng/mL [facility] Interpretation and review of laboratory results Normal [facility] Ferritin [Mass/Vol] 113.0 ng/mL Normal 7.3-270.7 [facility] Comment on above: Performed By: #### I PB, MGO, HDLT #### [facility] (DEFAULT) [address] [place] [address] 73085 HEMOGLOBIN A1Con 04-13-2024 Average glucose Estimated from glycated hemoglobin (Bld) [Mass/Vol] 126 mg/dL [facility] HbA1c (Bld) [Mass fraction] 6.0 % High 4.7 - 5.6 % [facility] Interpretation and review of laboratory results Abnormal [facility] Glucose [Mass/Vol] 126 mg/dL Normal [facility] Comment on above: Performed By: #### I PB, MGO, HDLT #### [facility] (DEFAULT) [address] [place] [address] 37855 Hemoglobin A1C HPLC 6.0 % High 4.7-5.6 [facility] Comment on above: Performed By: #### I PB, MGO, HDLT #### [facility] (DEFAULT) [address] [place] [address] 95938 HEPATIC FUNCTION PANELon Albumin [Mass/Vol] 4.4 g/dL 3.5 - 5.0 g/dL [facility] ALP [Catalytic activity/Vol] 91 U/L 32 - 126 U/L [facility] ALT [Catalytic activity/Vol] 28 U/L 9 - 48 U/L [facility] AST [Catalytic activity/Vol] 35 U/L 10 - 39 U/L [facility] Bilirubin [Mass/Vol] 1.1 mg/dL NINF - 1.5 mg/dL [facility] Bilirubin.direct [Mass/Vol] 0.3 mg/dL High NINF - 0.3 mg/dL [facility] Comment on above: Specimen hemolyzed. Direct bilirubin results may be falsely decreased. Interpret within the clinical context. Protein [Mass/Vol] 7.8 g/dL 6.4 - 8.3 g/dL [facility] Albumin [Mass/Vol] 4.4 g/dL Normal 3.5-5.0 [facility] Comment on above: Performed By: #### I PB, MGO, HDLT #### [facility] (DEFAULT) [address] [address] ALP [Catalytic activity/Vol] 91 U/L Normal 32-126 [facility] Comment on above: Performed By: #### I PB, MGO, HDLT #### [facility] (DEFAULT) [address] [place] [address] 14518 ALT [Catalytic activity/Vol] 28 U/L Normal 9-48 [facility] Comment on above: Performed By: #### I PB, MGO, HDLT #### [facility] (DEFAULT) [address] [place] [address] 44317 AST [Catalytic activity/Vol] 35 U/L Normal 10-39 [facility] Comment on above: Performed By: #### I PB, MGO, HDLT #### [facility] (DEFAULT) [address] [address] Bilirubin [Mass/Vol] 1.1 mg/dL Normal <1.5 [facility] Comment on above: Performed By: #### I PB, MGO, HDLT #### [facility] (DEFAULT) [address] [place] [address] 18023 Bilirubin.indirect [Mass/Vol] 0.3 mg/dL High <0.3 [facility] Comment on above: Result Comment: Spec imen hemolyzed. Direct bilirubin results may be falsely decreased. Interpret within the clinical context. Performed By: #### I PB, MGO, HDLT #### [facility] (DEFAULT) [address] [place] [address] 27852 Protein [Mass/Vol] 7.8 g/dL Normal 6.4-8.3 [facility] Comment on above: Performed By: #### I PB, MGO, HDLT #### [facility] (DEFAULT) [address] [place] [address] 41395 IRON/IRON BINDING/TRANSFERRI Non 04-13-2024 Iron [Mass/Vol] 75 ug/dL [facility] Iron binding capacity [Mass/Vol] 423 [facility] Iron saturation [Mass fraction] 18 % Low 20 - 55 % [facility] Transferrin [Mass/Vol] 338 mg/dL 200 - 400 mg/dL [facility] Iron [Mass/Vol] 75 ug/dL Normal 40-174 [facility] Comment on above: Performed By: #### I PB, MGO, HDLT #### [facility] (DEFAULT) [address] [place] [address] 90556 Iron Saturation 18 % Low 20-55 [facility] Comment on above: Performed By: #### I PB, MGO, HDLT #### [facility] (DEFAULT) [address] [place] [address] 05165 Total Iron Binding Capacity 423 mcg/dL Normal 250-425 [facility] Comment on above: Performed By: #### I PB, MGO, HDLT #### [facility] (DEFAULT) [address] [place] [address] 68775 Transferrin [Mass/Vol] 338 mg/dL Normal 200-400 [facility] Comment on above: Performed By: #### I PB, MGO, HDLT #### [facility] (DEFAULT) [address] [place] [address] LIPID PANEL W CALCULATED LDL on 04-13-2024 Cholesterol [Mass/Vol] 212 mg/dL High NINF - 200 mg/dL [facility] Comment on above: [<200 mg/dL: Desirab le] [200-239 mg/dL: Borderline High] [>239 mg/dL: High] Cholesterol in HDL [Mass/Vol] 67 mg/dL 40 - PINF mg/dL [facility] Comment on above: [<40 mg/dL: Low (Hig h Risk)] [>59 mg/dL: High (Low Risk)] Cholesterol in LDL [Mass/Vol] 128 mg/dL High 0 - 99 mg/dL [facility] Comment on above: [<100 mg/dL: Optimal ] [100-129 mg/dL: Near Optimal] [130-159 mg/dL: Borderline High] [160-189 mg/dL: High] [>189 mg/dL: Very High] Cholesterol non HDL [Mass/Vol] 145 mg/dL High NINF - 130 mg/dL [facility] Cholesterol.total/Melyssa sterol in HDL [Mass ratio] 3.2 {ratio} NINF - 4.5 [facility] Interpretation and review of laboratory results Abnormal [facility] Triglyceride [Mass/Vol] 84 mg/dL NINF - 150 mg/dL [facility] Comment on above: [<150 mg/dL: Desirab le] [150-199 mg/dL: Borderline] [200-499 mg/dL: High] [>500 mg/dL: Very High] Calculated LDL Cholesterol 128 mg/dL High 0-99 [facility] Comment on above: Order Comment: IF NO T DONE IN THE E.D. SHOULD BE FASTING PRIOR TO DRAW. Result Comment: [<10 0 mg/dL: Optimal] [100-129 mg/dL: Near Optimal] [130-159 mg/dL: Borderline High] [160-189 mg/dL: High] [>189 mg/dL: Very High] Performed By: #### I PB, MGO, HDLT #### [facility] (DEFAULT) [address] [address] Cholesterol [Mass/Vol] 212 mg/dL High <200 [facility] Comment on above: Order Comment: IF NO T DONE IN THE E.D. SHOULD BE FASTING PRIOR TO DRAW. Result Comment: [<20 0 mg/dL: Desirable] [200-239 mg/dL: Borderline High] [>239 mg/dL: High] Performed By: #### I PB, MGO, HDLT #### [facility] (DEFAULT) [address] [address] Cholesterol in HDL [Mass/Vol] 67 mg/dL Normal >=40 [facility] Comment on above: Order Comment: IF NO T DONE IN THE E.D. SHOULD BE FASTING PRIOR TO DRAW. Result Comment: [<40 mg/dL: Low (High Risk)] [>59 mg/dL: High (Low Risk)] Performed By: #### I PB, MGO, HDLT #### [facility] (DEFAULT) [address] [address] Non HDL Cholesterol 145 mg/dL High <130 [facility] Comment on above: Order Comment: IF NO T DONE IN THE E.D. SHOULD BE FASTING PRIOR TO DRAW. Performed By: #### I PB, MGO, HDLT #### [facility] (DEFAULT) [address] [address] Total Cholesterol/HDL Ratio 3.2 Normal <4.5 [facility] Comment on above: Order Comment: IF NO T DONE IN THE E.D. SHOULD BE FASTING PRIOR TO DRAW. Performed By: #### I PB, MGO, HDLT #### [facility] (DEFAULT) [address] [address] Triglyceride [Mass/Vol] 84 mg/dL Normal <150 O [facility] Comment on above: Order Comment: IF NO T DONE IN THE E.D. SHOULD BE FASTING PRIOR TO DRAW. Result Comment: [<15 0 mg/dL: Desirable] [150-199 mg/dL: Borderline] [200-499 mg/dL: High] [>500 mg/dL: Very High] Performed By: #### I ABRIL ANDREA HDLT #### [facility] (DEFAULT) [address] [place] [address] MAGNESIUMon 04-13-2024 Magnesium [Mass/Vol] 2.0 mg/dL 1.6 - 2 .6 mg/dL [facility] Magnesium [Mass/Vol] 2.0 mg/dL Normal 1.6-2.6 [facility] Comment on above: Performed By: #### I ABRIL ANDREA HDLT #### [facility] (DEFAULT) [address] [place] [address] NT-PRO B-TYPE NATRIURETIC PE PTIDEon 04-13-2024 Interpretation and review of laboratory results Abnormal [facility] Natriuretic peptide.B prohormone N-Terminal IA [Mass/Vol] 4593 pg/mL High NINF - 540 pg/mL [facility] Natriuretic peptide B (Bld) [Mass/Vol] 4593 pg/mL High <=540 [facility] Comment on above: Order Comment: If no t done in the ED. Performed By: #### I ABRIL ANDREA HDLT #### [facility] (DEFAULT) [address] [place] [address] No Panel Informationon 04-13 Interpretation and review of laboratory results Abnormal [facility] Interpretation and review of laboratory results Normal [facility] PHOSPHATE, INORGANICon 04-13 Phosphate [Mass/Vol] 4.1 mg/dL 2.2 - 4 .6 mg/dL [facility] Phosphorous 4.1 mg/dL Normal 2.2-4.6 [facility] Comment on above: Performed By: #### I ABRIL ANDREA HDLT #### [facility] (DEFAULT) [address] [address] PTTon 04-13-2024 aPTT Coag (PPP) [Time] 56.1 s High OS [facility] Interpretation and review of laboratory results Abnormal [facility] aPTT Coag (Bld) [Time] 56.1 s High 24.0-34.3 [facility] Comment on above: Order Comment: After initiation [...] By: #### I ABRIL ANDREA HDLT #### [facility] (DEFAULT) [address] [address] aPTT Coag (Bld) [Time] 43.9 s High 24.0-34.3 [facility] Comment on above: Order Comment: After initiation [...] By: #### I ABRIL ANDREA HDLT #### [facility] (DEFAULT) [address] [place] [address] aPTT Coag (PPP) [Time] 28.4 s [place] Interpretation and review of laboratory results Normal [facility] aPTT Coag (Bld) [Time] 28.4 s Normal 24.0-34.3 [facility] Comment on above: Order Comment: Draw prior to initiation of intravenous Heparin. Performed By: #### P TT #### [facility] (DEFAULT) [address] [place] [address] PTTOrdered By: Kiera Mann on 04-13-2024 aPTT Coag (PPP) [Time] 43.9 s High OS [facility] Interpretation and review of laboratory results Abnormal [facility] Results inconsistent with previous results [facility] Portable XR Chest Viewson IMPRESSION: [...] spine. Degenerative change in the shoulders. RADIOLOGY Mark Gao M D, PhD - 04/13/2024 EXAM: [...] above without evidence of acute cardiopulmonary disease. [facility] Radiology Study observation (narrative) [facility] Portable XR Chest ViewsOrder ed By: Mark Gao on 04-13-2024 [facility] Work Phone: TSH W/FT4 REFLEXon Interpretation and review of laboratory results Normal [facility] TSH Qn 4.349 m[IU]/L [facility] TSH 4.349 uIU/mL Normal 0.550-4.780 [facility] Comment on above: Performed By: #### I PB, MGO, HDLT #### [facility] (DEFAULT) [address] [id number] XR CHEST 1 VIEW PORTABLEon 1 06-14-2023 [...] without evidence of acute cardiopulmonary disease. Normal [facility] 12 Lead EKGon 04-12-2024 12 Lead EKG Normal [facility] Absolute neutrophil countOrd ered By: Janes Zamudio on 04-12-2024 Neutrophils (Bld) [#/Vol] 5.2 10*3/uL 2.0-7.7 [facility] BNP (brain natriuretic pepti de measurement)Ordered By: Janes Zamudio on 04-12-2024 Natriuretic peptide B (Bld) [Mass/Vol] 394.1 pg/mL High 0-100 [facility] BNP,B-Type NATRIURETIC PEPTI Trent 04-12-2024 Natriuretic peptide B (Bld) [Mass/Vol] 394.1 pg/mL High 0-100 [facility] Comment on above: Performed By: #### L 100.0100, L503.6620, L500.2500, L501.5200, L501.4020 ####[facility] [address] [place], [address] Basic Metabolic Profile (BMP )on 04-12-2024 BUN/CRE 26.0 RATIO High 10-20 [facility] Comment on above: Order Comment: 'TROP ' Serial specimen #1, #2 or #3: 1 Performed By: #### L 100.0100, L503.6620, L500.2500, L501.5200, L501.4020 ####[facility] [address] [place], [address] CA,Total 9.8 mg/dL Normal 8.5-10.1 [facility] Comment on above: Order Comment: 'TROP ' Serial specimen #1, #2 or #3: 1 Performed By: #### L 100.0100, L503.6620, L500.2500, L501.5200, L501.4020 ####[facility] [address] [place], [address] Chloride [Moles/Vol] 101 mmol/L Normal 98-107 [facility] Comment on above: Order Comment: 'TROP ' Serial specimen #1, #2 or #3: 1 Performed By: #### L 100.0100, L503.6620, L500.2500, L501.5200, L501.4020 ####[facility] [address] [place], [address] CO2 [Moles/Vol] 33.0 mmol/L High 21.0-32.0 [facility] Comment on above: Order Comment: 'TROP ' Serial specimen #1, #2 or #3: 1 Performed By: #### L 100.0100, L503.6620, L500.2500, L501.5200, L501.4020 ####[facility] [address] [place], [address] Creatinine [Mass/Vol] 1.04 mg/dL High 0.55-1.[address] [facility] Comment on above: Order Comment: 'TROP ' Serial specimen #1, #2 or #3: 1 Result Comment: The validity of the calculated GFR GFRAA in patients over70 years has not been determined. Clinical correlation isessential. Performed By: #### L 100.0100, L503.6620, L500.2500, L501.5200, L501.4020 ####[facility] [address] [place], [address] ECRCL 38.36 ml/min Normal [facility] Comment on above: Order Comment: 'TROP ' Serial specimen #1, #2 or #3: 1 Performed By: #### L 100.0100, L503.6620, L500.2500, L501.5200, L501.4020 ####[facility] [address] [place], [address] EST GFR - AA 66 mL/min Normal >60 [facility] Comment on above: Order Comment: 'TROP ' Serial specimen #1, #2 or #3: 1 Result Comment: Afri can Cambodian GFR Calc Performed By: #### L 100.0100, L503.6620, L500.2500, L501.5200, L501.4020 ####[facility] [address] [place], [address] GAP 6 Normal 5-15 [facility] Comment on above: Order Comment: 'TROP ' Serial specimen #1, #2 or #3: 1 Performed By: #### L 100.0100, L503.6620, L500.2500, L501.5200, L501.4020 ####[facility] [address] [place], [address] GFR/1.73 sq M.predicted among non-blacks MDRD (S/P/Bld) [Vol rate/Area] 55 mL/min/{1.73_m2} Low >60 [facility] Comment on above: Order Comment: 'TROP ' Serial specimen #1, #2 or #3: 1 Result Comment: Non- GFR Calc Performed By: #### L 100.0100, L503.6620, L500.2500, L501.5200, L501.4020 ####[facility] [address] [place], [address] Glucose [Mass/Vol] 106 mg/dL Normal 74-106 [facility] Comment on above: Order Comment: 'TROP ' Serial specimen #1, #2 or #3: 1 Result Comment: Fast ing Glucose result from 100 to 125 mg/dLsuggests IMPAIRED HOMEOSTASIS per A.D.A. criteria. Performed By: #### L 100.0100, L503.6620, L500.2500, L501.5200, L501.4020 ####[facility] [address] [place], [address] Potassium [Moles/Vol] 3.6 mmol/L Normal 3.5-5.[address] [facility] Comment on above: Order Comment: 'TROP ' Serial specimen #1, #2 or #3: 1 Performed By: #### L 100.0100, L503.6620, L500.2500, L501.5200, L501.4020 ####[facility] [address] [place], [address] Sodium [Moles/Vol] 140 mmol/L Normal 136-145 [facility] Comment on above: Order Comment: 'TROP ' Serial specimen #1, #2 or #3: 1 Performed By: #### L 100.0100, L503.6620, L500.2500, L501.5200, L501.4020 ####[facility] [address] [place], [address] Urea nitrogen [Mass/Vol] 27 mg/dL High 7-18 [facility] Comment on above: Order Comment: 'TROP ' Serial specimen #1, #2 or #3: 1 Performed By: #### L 100.0100, L503.6620, L500.2500, L501.5200, L501.4020 ####[facility] [address] [place], [address] Basophil percentageOrdered B y: Janes Zamudio on 04-12-2024 Basophils/100 WBC (Bld) 0.5 % 0-1 [facility] Blood urea nitrogen (BUN)/cr eatinine ratioOrdered By: Janes Zamudio on 04-12-2024 Urea nitrogen/Creatinine [Mass ratio] 26.0 mg/mg High 10-20 [facility] CBC W/Diff, Automatedon 12-2023 Absolute Lymph 2.33 X10 3/uL Normal 0.83-4.51 [facility] Comment on above: Performed By: #### L 100.0100, L503.6620, L500.2500, L501.5200, L501.4020 ####[facility] [address] [place], [address] Absolute Neut 5.2 X10 3/uL Normal 2.0-7.7 [facility] Comment on above: Performed By: #### L 100.0100, L503.6620, L500.2500, L501.5200, L501.4020 ####[facility] [address] [place], [address] Basophils/100 WBC (Bld) 0.5 % Normal 0-1 [facility] Comment on above: Performed By: #### L 100.0100, L503.6620, L500.2500, L501.5200, L501.4020 ####[facility] [address] [place], [address] Eosinophils/100 WBC (Bld) 2.7 % Normal 0-5 [facility] Comment on above: Performed By: #### L 100.0100, L503.6620, L500.2500, L501.5200, L501.4020 ####[facility] [address] [place], [address] Erythrocyte distribution width (RBC) [Ratio] 12.4 % Normal 11.6-14.6 [facility] Comment on above: Performed By: #### L 100.0100, L503.6620, L500.2500, L501.5200, L501.4020 ####[facility] [address] [place], [address] Hematocrit (Bld) [Volume fraction] 40.1 % Normal 37-47 [facility] Comment on above: Performed By: #### L 100.0100, L503.6620, L500.2500, L501.5200, L501.4020 ####[facility] [address] [place], [address] Hemoglobin (Bld) [Mass/Vol] 13.3 g/dL Normal 12.0-15.0 [facility] Comment on above: Performed By: #### L 100.0100, L503.6620, L500.2500, L501.5200, L501.4020 ####[facility] [address] [place], [address] IG% 0.200 Normal 0.0-0.9 [facility] Comment on above: Result Comment: IG% - Immature Granulocytes (promyelocytes, myelocytes andmetamyelocytes) > 1% indicates that a LEFT SHIFT is Present. Performed By: #### L 100.0100, L503.6620, L500.2500, L501.5200, L501.4020 ####[facility] [address] [place], [address] Lymphocytes/100 WBC (Bld) 27.5 % Normal 19-41 [facility] Comment on above: Performed By: #### L 100.0100, L503.6620, L500.2500, L501.5200, L501.4020 ####[facility] [address] [place], [address] MCH (RBC) [Entitic mass] 30.5 pg Normal 27.0-32.0 [facility] Comment on above: Performed By: #### L 100.0100, L503.6620, L500.2500, L501.5200, L501.4020 ####[facility] [address] [place], [address] MCHC (RBC) [Mass/Vol] 33.2 g/dL Normal 32-[address] [facility] Comment on above: Performed By: #### L 100.0100, L503.6620, L500.2500, L501.5200, L501.4020 ####[facility] [address] [place], [address] MCV (RBC) [Entitic vol] 92.0 fL Normal 81-99 [facility] Comment on above: Performed By: #### L 100.0100, L503.6620, L500.2500, L501.5200, L501.4020 ####[facility] [address] [place], [address] Monocytes/100 WBC (Bld) 8.0 % Normal 0-10 [facility] Comment on above: Performed By: #### L 100.0100, L503.6620, L500.2500, L501.5200, L501.4020 ####[facility] [address] [place], [address] Neutrophils/100 WBC (Bld) 61.1 % Normal 47-70 [facility] Comment on above: Performed By: #### L 100.0100, L503.6620, L500.2500, L501.5200, L501.4020 ####[facility] [address] [place], [address] Nucleated RBC (Bld) [#/Vol] 0 10*3/uL Normal 0-5 [facility] Comment on above: Performed By: #### L 100.0100, L503.6620, L500.2500, L501.5200, L501.4020 ####[facility] [address] [place], [address] Platelet mean volume (Bld) [Entitic vol] 10.1 fL Normal 6.2-12.0 [facility] Comment on above: Performed By: #### L 100.0100, L503.6620, L500.2500, L501.5200, L501.4020 ####[facility] [address] [place], [address] Platelets (Bld) [#/Vol] 280 10*3/uL Normal 150-450 [facility] Comment on above: Performed By: #### L 100.0100, L503.6620, L500.2500, L501.5200, L501.4020 ####[facility] [address] [place], [address] RBC (Bld) [#/Vol] 4.36 10*6/uL Normal 4.2-5.4 [facility] Comment on above: Performed By: #### L 100.0100, L503.6620, L500.2500, L501.5200, L501.4020 ####[facility] [address] [place], [address] RDW SD 42.1 fl Normal 35.1-43.9 [facility] Comment on above: Performed By: #### L 100.0100, L503.6620, L500.2500, L501.5200, L501.4020 ####[facility] [address] [place], [address] WBC (Bld) [#/Vol] 8.5 10*3/uL Normal 4.4-11.0 [facility] Comment on above: Performed By: #### L 100.0100, L503.6620, L500.2500, L501.5200, L501.4020 ####[facility] [address] [place], [address] Carbon dioxide measurementOr dered By: Janes Zamudio on 04-12-2024 CO2 [Moles/Vol] 33.0 mmol/L High 21.0-32.0 [facility] Chest 1 View (Portable)on Chest 1 View (Portable) Normal [facility] Chloride measurementOrdered By: Janes Zamudio on 04-12-2024 Chloride [Moles/Vol] 101 mmol/L 98-107 [facility] Emergency Department Summary on 04-12-2024 Emergency Department Summary Normal [facility] Eosinophil percentageOrdered By: Janes Zamudio on 04-12-2024 Eosinophils/100 WBC (Bld) 2.7 % 0-5 [facility] Erythrocyte distribution wid th ratioOrdered By: Janes Zamudio on 04-12-2024 Erythrocyte distribution width (RBC) [Ratio] 12.4 % 11.6-14.6 [facility] Erythrocyte distribution wid th standard deviationOrdered By: Janes Zamudio on 04-12-2024 Erythrocyte distribution width (RBC) [Entitic vol] 42.1 fL 35.1-43.9 [facility] Estimated glomerular filtrat ion rate (GFR) AmericanOrdered By: Janes Zamudio on 04-12-2024 Estimated GFR (MDRD) Amer 66 mL/min >60 [facility] Comment on above: GFR Calc Estimation of creatinine shirin aranceOrdered By: Janes Zamudio on 04-12-2024 Estimated Creatinine Clearance Calc 38.36 ml/min [facility] Glomerular filtration rate ( GFR) estimationOrdered By: Janes Zamudio on 04-12-2024 Estimated GFR (MDRD) Non-Af Amer 55 mL/min Low >60 [facility] Comment on above: Non- GFR Calc Glucose measurementOrdered B y: Janes Zamudio on 04-12-2024 Glucose [Mass/Vol] 106 mg/dL 74-106 [facility] Comment on above: Fasting Glucose resu lt from 100 to 125 mg/dL suggests IMPAIRED HOMEOSTASIS per A.D.A. criteria. Hematocrit Auto (Bld) [Volum e fraction]Ordered By: Janes Zamudio on 04-12-2024 Hematocrit (Bld) [Volume fraction] 40.1 % 37-47 [facility] Hemoglobin measurementOrdere d By: Janes Zamudio on 04-12-2024 Hemoglobin (Bld) [Mass/Vol] 13.3 g/dL 12.0-15.0 [facility] Immature granulocytes/100 WB C Auto (Bld)Ordered By: Janes Zamudio on 04-12-2024 Immature granulocytes/100 WBC (Bld) 0.200 % 0.0-0.9 [facility] Comment on above: IG% - Immature Granu locytes (promyelocytes, myelocytes and metamyelocytes) > 1% indicates that a LEFT SHIFT is Present. L501.4020on 04-12-2024 TROPONIN-I HS 8 pg/mL Normal 3.0-54.0 [facility] Comment on above: Order Comment: 'TROP ' Serial specimen #1, #2 or #3: 1 Result Comment: Plea se Note: New Test Units and Gender Specific Reference Ranges. For more information see Policy Stat Procedure [place] High Sensitivity Troponin (TNIH) and attachments. Performed By: #### L 100.0100, L503.6620, L500.2500, L501.5200, L501.4020 ####[facility] [address] [place], [place], [address] Lymphocytes Auto (Unsp spec) [#/Vol]Ordered By: Janes Zamudio on 04-12-2024 Lymphocytes (Bld) [#/Vol] 2.33 10*3/uL 0.83-4.51 [facility] Lymphocytes/100 WBC Auto (Un sp spec)Ordered By: Janes Zamudio on 04-12-2024 Lymphocytes/100 WBC (Bld) 27.5 % 19-41 [facility] MCV (mean corpuscular volume ) determinationOrdered By: Janes Zamudio on 04-12-2024 MCV (RBC) [Entitic vol] 92.0 fL 81-99 [facility] Magnesiumon 04-12-2024 Magnesium [Mass/Vol] 2.2 mg/dL Normal 1.6-2.6 [facility] Comment on above: Order Comment: 'TROP ' Serial specimen #1, #2 or #3: 1 Performed By: #### L 100.0100, L503.8420, L500.2500, L501.5200, L501.4020 ####[facility] [address] [place], [address] Magnesium measurementOrdered By: Janes Zamudio on 04-12-2024 Magnesium [Mass/Vol] 2.2 mg/dL 1.6-2.6 [facility] Mean corpuscular hemoglobin (MCH) determinationOrdered By: Janes Zamudio on 04-12-2024 MCH (RBC) [Entitic mass] 30.5 pg 27.0-32.0 [facility] Mean corpuscular hemoglobin concentration (MCHC) determinationOrdered By: Janes Zamudio on 04-12-2024 MCHC (RBC) [Mass/Vol] 33.2 g/dL 32-[address] [facility] Mean platelet volume determi nationOrdered By: Janes Zamudio on 04-12-2024 Platelet mean volume (Bld) [Entitic vol] 10.1 fL 6.2-12.0 [facility] Monocyte percentageOrdered B y: Janes Zamudio on 04-12-2024 Monocytes/100 WBC (Bld) 8.0 % 0-10 [facility] Neutrophil percentageOrdered By: Janes Zamudio on 04-12-2024 Neutrophils/100 WBC (Bld) 61.1 % 47-70 [facility] Nucleated red blood cell per centageOrdered By: Janes Zamudio on 04-12-2024 Nucleated RBC/100 WBC (Bld) [Ratio] 0 % 0-5 [facility] Platelet countOrdered By: Baldomero Zamudio on 04-12-2024 Platelets (Bld) [#/Vol] 280 10*3/uL 150-450 [facility] Potassium measurementOrdered By: Janes Zamudio on 04-12-2024 Potassium [Moles/Vol] 3.6 mmol/L 3.5-5.[address] [facility] RBC Auto (Bld) [#/Vol]Ordere d By: Janes Zamudio on 04-12-2024 RBC (Bld) [#/Vol] 4.36 10*6/uL 4.2-5.4 [facility] Serum anion gap measurementO rdered By: Janes Zamudio on 04-12-2024 Anion gap [Moles/Vol] 6 mmol/L 5-[address] [facility] Serum or plasma calcium michelle urement (mass/volume)Ordered By: Janes Zamudio on 04-12-2024 Calcium [Mass/Vol] 9.8 mg/dL 8.5-10.1 [facility] Serum or plasma creatinine m easurement (mass/volume)Ordered By: Janes Zamudio on 04-12-2024 Creatinine [Mass/Vol] 1.04 mg/dL High 0.55-1.[address] [facility] Comment on above: The validity of the calculated GFR & GFRAA in patients over 70 years has not been determined. Clinical correlation is essential. Serum or plasma urea nitroge n measurement (mass/volume)Ordered By: Janes Zamudio on 04-12-2024 Urea nitrogen [Mass/Vol] 27 mg/dL High 7- [facility] Sodium levelOrdered By: Omkar Zamudio on 04-12-2024 Sodium [Moles/Vol] 140 mmol/L 136-145 [facility] Troponin IOrdered By: Janes Zamudio on 04-12-2024 Troponin I High Sensitivity 8 pg/mL 3.0-54.0 [facility] Comment on above: Please Note: New Debra t Units and Gender Specific Reference Ranges. For more information see Policy Stat Procedure [place] High Sensitivity Troponin (TNIH) and attachments. White blood cell (WBC) count Ordered By: Janes Zamudio on 04-12-2024 WBC (Bld) [#/Vol] 8.5 10*3/uL 4.4-11.0 [facility] Basic Metabolic Profile (BMP )on 04-02-2024 BUN/CRE 25.2 RATIO High 10- [facility] Comment on above: Order Comment: RORO SHAVER Performed By: #### L 500.2500 ####[facility] [address] [place], [address] CA,Total 10.0 mg/dL Normal 8.5-10.1 [facility] Comment on above: Order Comment: RORO SHAVER Performed By: #### L 500.2500 ####[facility] [address] [place], [address] Chloride [Moles/Vol] 96 mmol/L Low 98-107 [facility] Comment on above: Order Comment: RORO SHAVER Performed By: #### L 500.2500 ####[facility] [address] [place], [address] CO2 [Moles/Vol] 34.0 mmol/L High 21.0-32.0 [facility] Comment on above: Order Comment: RORO SHAVER Performed By: #### L 500.2500 ####[facility] [address] [place], [address] Creatinine [Mass/Vol] 1.15 mg/dL High 0.55-1.[address] [facility] Comment on above: Order Comment: RORO SHAVER Result Comment: The validity of the calculated GFR GFRAA in patients over70 years has not been determined. Clinical correlation isessential. Performed By: #### L 500.2500 ####[facility] [address] [place], [address] EST GFR - AA 59 mL/min Low >60 [facility] Comment on above: Order Comment: RORO SHAVER Result Comment: Afri can Cambodian GFR Calc Performed By: #### L 500.2500 ####[facility] [address] [place], [address] GAP 5 Normal 5-15 [facility] Comment on above: Order Comment: RORO SHAVER Performed By: #### L 500.2500 ####[facility] [address] [place], [address] GFR/1.73 sq M.predicted among non-blacks MDRD (S/P/Bld) [Vol rate/Area] 49 mL/min/{1.73_m2} Low >60 [facility] Comment on above: Order Comment: RORO SHAVER Result Comment: Non- GFR Calc Performed By: #### L 500.2500 ####[facility] [address] [place], [place], [phone] Glucose [Mass/Vol] 127 mg/dL High 74-106 [facility] Comment on above: Order Comment: RORO SHAVER Result Comment: Fast ing Glucose result greater than or equal to 126 mg/dLsuggests DIABETES MELLITUS per A.D.A. criteria. Performed By: #### L 500.2500 ####[facility] [address] [place], [address] Potassium [Moles/Vol] 3.7 mmol/L Normal 3.5-5.[address] [facility] Comment on above: Order Comment: RORO SHAVER Performed By: #### L 500.2500 ####[facility] [address] [place], [address] Sodium [Moles/Vol] 135 mmol/L Low 136-145 [facility] Comment on above: Order Comment: RORO SHAVER Performed By: #### L 500.2500 ####[facility] [address] [place], [address] Urea nitrogen [Mass/Vol] 29 mg/dL High 7-18 [facility] Comment on above: Order Comment: RORO SHAVER Performed By: #### L 500.2500 ####[facility] [address] [place], [place], [id number] CNOVon 04-02-2024 CNOV Office Visit (INTMWS ) ELIZABETH PERSAUD ([id number]) 1945 F LAUREN Date Time Provider Department 04/02/24 10:00 AM [...] history review Reviewed and updated problem list, medical/surgical/famil y/social history, medications, and allergies. Opioid use review [...] BMI 25.06 kg/m? Vision Screening: Follows with optometry/ophthalmolog y Assessment/Plan Medicare annual wellness visit, subsequent (Z00.00) [...] Colonoscopy COLONO (more content not included)... Normal [facility] BNP,B-Type NATRIURETIC PEPTI Trent 03-24-2024 Natriuretic peptide B (Bld) [Mass/Vol] 639.0 pg/mL High 0-100 [facility] Comment on above: Performed By: #### L 100.0100, L503.6620, L500.2500 ####[facility] [address] [place], [address] Basic Metabolic Profile (BMP )on 03-24-2024 BUN/CRE 36.0 RATIO High 10-20 [facility] Comment on above: Performed By: #### L 100.0100, L503.6620, L500.2500 ####[facility] [address] [place], [address] CA,Total 9.4 mg/dL Normal 8.5-10.1 [facility] Comment on above: Performed By: #### L 100.0100, L503.6620, L500.2500 ####[facility] [address] [place], [address] Chloride [Moles/Vol] 102 mmol/L Normal 98-107 [facility] Comment on above: Performed By: #### L 100.0100, L503.6620, L500.2500 ####[facility] [address] [place], [address] CO2 [Moles/Vol] 31.0 mmol/L Normal 21.0-32.0 [facility] Comment on above: Performed By: #### L 100.0100, L503.6620, L500.2500 ####[facility] [address] [place], [address] Creatinine [Mass/Vol] 1.50 mg/dL High 0.55-1.[address] [facility] Comment on above: Result Comment: The validity of the calculated GFR GFRAA in patients over70 years has not been determined. Clinical correlation isessential. Performed By: #### L 100.0100, L503.6620, L500.2500 ####[facility] [address] [place], [address] EST GFR - AA 43 mL/min Low >60 [facility] Comment on above: Result Comment: Afri can Cambodian GFR Calc Performed By: #### L 100.0100, L503.6620, L500.2500 ####[facility] [address] [place], [address] GAP 6 Normal 5-15 [facility] Comment on above: Performed By: #### L 100.0100, L503.6620, L500.2500 ####[facility] [address] [place], [address] GFR/1.73 sq M.predicted among non-blacks MDRD (S/P/Bld) [Vol rate/Area] 36 mL/min/{1.73_m2} Low >60 [facility] Comment on above: Result Comment: Non- GFR Calc Performed By: #### L 100.0100, L503.6620, L500.2500 ####[facility] [address] [place], [address] Glucose [Mass/Vol] 110 mg/dL High 74-106 [facility] Comment on above: Result Comment: Fast ing Glucose result from 100 to 125 mg/dLsuggests IMPAIRED HOMEOSTASIS per A.D.A. criteria. Performed By: #### L 100.0100, L503.6620, L500.2500 ####[facility] [address] [place], [address] Potassium [Moles/Vol] 3.7 mmol/L Normal 3.5-5.[address] [facility] Comment on above: Performed By: #### L 100.0100, L503.6620, L500.2500 ####[facility] [address] [place], [address] Sodium [Moles/Vol] 138 mmol/L Normal 136-145 [facility] Comment on above: Performed By: #### L 100.0100, L503.6620, L500.2500 ####[facility] [address] [place], [address] Urea nitrogen [Mass/Vol] 54 mg/dL High 7-18 [facility] Comment on above: Performed By: #### L 100.0100, L503.6620, L500.2500 ####[facility] [address] [place], [address] CBC W/Diff, Automatedon 11-2023 Absolute Lymph 2.64 X10 3/uL Normal 0.83-4.51 [facility] Comment on above: Performed By: #### L 100.0100, L503.6620, L500.2500 ####[facility] [address] [place], [address] Absolute Neut 4.0 X10 3/uL Normal 2.0-7.7 [facility] Comment on above: Performed By: #### L 100.0100, L503.6620, L500.2500 ####[facility] [address] [place], [address] Basophils/100 WBC (Bld) 0.5 % Normal 0-1 [facility] Comment on above: Performed By: #### L 100.0100, L503.6620, L500.2500 ####[facility] [address] [place], [address] Eosinophils/100 WBC (Bld) 2.4 % Normal 0-5 [facility] Comment on above: Performed By: #### L 100.0100, L503.6620, L500.2500 ####[facility] [address] [place], [address] Erythrocyte distribution width (RBC) [Ratio] 12.8 % Normal 11.6-14.6 [facility] Comment on above: Performed By: #### L 100.0100, L503.6620, L500.2500 ####[facility] [address] [place], [address] Hematocrit (Bld) [Volume fraction] 40.7 % Normal 37-47 [facility] Comment on above: Performed By: #### L 100.0100, L503.6620, L500.2500 ####[facility] [address] [place], [address] Hemoglobin (Bld) [Mass/Vol] 13.7 g/dL Normal 12.0-15.0 [facility] Comment on above: Performed By: #### L 100.0100, L503.6620, L500.2500 ####[facility] [address] [place], [address] IG% 0.400 Normal 0.0-0.9 [facility] Comment on above: Result Comment: IG% - Immature Granulocytes (promyelocytes, myelocytes andmetamyelocytes) > 1% indicates that a LEFT SHIFT is Present. Performed By: #### L 100.0100, L503.6620, L500.2500 ####[facility] [address] [place], [address] Lymphocytes/100 WBC (Bld) 34.9 % Normal 19-41 [facility] Comment on above: Performed By: #### L 100.0100, L503.6620, L500.2500 ####[facility] [address] [place], [address] MCH (RBC) [Entitic mass] 30.6 pg Normal 27.0-32.0 [facility] Comment on above: Performed By: #### L 100.0100, L503.6620, L500.2500 ####[facility] [address] [place], [address] MCHC (RBC) [Mass/Vol] 33.7 g/dL Normal 32-[address] [facility] Comment on above: Performed By: #### L 100.0100, L503.6620, L500.2500 ####[facility] [address] [place], [address] MCV (RBC) [Entitic vol] 91.1 fL Normal 81-99 [facility] Comment on above: Performed By: #### L 100.0100, L503.6620, L500.2500 ####[facility] [address] [place], [address] Monocytes/100 WBC (Bld) 9.3 % Normal 0-10 [facility] Comment on above: Performed By: #### L 100.0100, L503.6620, L500.2500 ####[facility] [address] [place], [address] Neutrophils/100 WBC (Bld) 52.5 % Normal 47-70 [facility] Comment on above: Performed By: #### L 100.0100, L503.6620, L500.2500 ####[facility] [address] [place], [address] Nucleated RBC (Bld) [#/Vol] 0 10*3/uL Normal 0-5 [facility] Comment on above: Performed By: #### L 100.0100, L503.6620, L500.2500 ####[facility] [address] [place], [address] Platelet mean volume (Bld) [Entitic vol] 10.6 fL Normal 6.2-12.0 [facility] Comment on above: Performed By: #### L 100.0100, L503.6620, L500.2500 ####[facility] [address] [place], [address] Platelets (Bld) [#/Vol] 249 10*3/uL Normal 150-450 [facility] Comment on above: Performed By: #### L 100.0100, L503.6620, L500.2500 ####[facility] [address] [place], [address] RBC (Bld) [#/Vol] 4.47 10*6/uL Normal 4.2-5.4 [facility] Comment on above: Performed By: #### L 100.0100, L503.6620, L500.2500 ####[facility] [address] [place], [address] RDW SD 42.1 fl Normal 35.1-43.9 [facility] Comment on above: Performed By: #### L 100.0100, L503.6620, L500.2500 ####[facility] [address] [place], [address] WBC (Bld) [#/Vol] 7.6 10*3/uL Normal 4.4-11.0 [facility] Comment on above: Performed By: #### L 100.0100, L503.6620, L500.2500 ####[facility] [address] [place], [address] Cardiology Visit Reporton Cardiology Visit Report Normal [facility] Chest PA and Lateralon 03-24 Chest PA and Lateral Normal [facility] ANES POSTPROC EVALon 024 ANES POSTPROC EVAL HNO ID: [id number] Author: JOVANNI CASTRO MD Service: Anesthesiology Author Type: Anesthesiologist Type: Anesthesia Postprocedure Evaluation Filed: 08/18/2023 12:40 Note Text: POST ANESTHESIA EVALUATION NOTE : 1945 Procedure Summary Date: 08/18/23 Room / Location: [facility] Endoscopy Anesthesia Start: 1117 Anesthesia Stop: 1144 Procedure: EGD DIAGNOSTIC Diagnosis: Dysphagia, unspecified type (Dysphagia) Scheduled Providers: Katheryn Stokes MD; Fabian Suarez APRN.TECHNICAL SOLUTIONS CONSULTANT; Ok Walker MD Responsible Provider: Ok Walker [...] August 18, 2023 TIME: 12:40 PM CSN: [id number] Normal [facility] ANES PRE-OPon 08-18-2023 ANES PRE-OP HNO ID: [id number] Author: OK WALKER MD Service: Anesthesiology Author Type: Anesthesiologist Type: Anesthesia Preprocedure Evaluation Filed: 08/18/2023 10:33 Note Text: ANESTHESIOLOGY DAY OF SURGERY NOTE : 1945 Procedure Information Date/Time: 08/18/23 1200 Scheduled providers: Katheryn Stokes MD; Fabian Suarez APRN.TECHNICAL SOLUTIONS CONSULTANT; Ok Walker MD Procedure: EGD DIAGNOSTIC Location: [facility] Endoscopy Estimated body mass index is [...] and consent discussed: yes. Patient / Responsible Alliance Party agrees to proceed: yes Patient / [...] Medications as of 08/18/2023 Medication Sig - fluticasone-umeclidin- vilanter (TRELEGY ELLIPTA) 100-62.5-25 mcg inhalation powder Inhale [...] mg by mouth five times daily. - EQWCBVB-INRUOWIFW-KHWH ORAL Take by mouth. - sucralfate (CARAFATE) [...] Take 1 (more content not included)... Normal [facility] EGD Study observation Narrat iveon 08-18-2023 [facility] GLUCOSE, BLOOD (POC)on 08-17 Glucose [Mass/Vol] 96 mg/dL 74 - 99 mg/dL [facility] HISTORY PHYSICALon HISTORY PHYSICAL HNO ID: [id number] Author: KATHERYN STOKES MD Service: General Surgery [...] patient had a swallow study performed at [facility] which she noted was demonstrating food sticking [...] - External and internal hemorrhoids. Pathology demonstrated: Regulatory Affairs Internship Specimen originated from [facility] Specimen #: [id number] Submitting Physician: CARMENCITA CORDOBA MD FINAL DIAGNOSIS [...] biopsies (D) - Fragments of hyperplastic polyp. JJ/geovani 11/24/2015 COMMENT 1. Results of an immunohistochemical [...] with reflu (more content not included)... Normal [facility] NURSING PROGon 08-18-2023 NURSING PROG HNO ID: [id number] Author: AMMY BAER RN Service: Nursing Author Type: Registered Nurse Type: Nursing Progress Note Filed: 08/18/2023 10:50 Note Text: Other: 1030 Dr. Walker aware pt took Jardiance yesterday 08/17/23 at 1230. Also Eliquis 08/17/23 as well. Plans are to go ahead with procedure. [facility] SURGICAL PATHOLOGYon 024 CASE REPORT [facility] Comment on above: Order Comment: Speci men Type: TISSUE SPECIMEN Ordering Facility: [facility] Address: [address] [place] [address] Result Comment: Surg [facility] Pathology Report Case: [id number] Authorizing Provider: Katheryn Stokes MD Collected: 08/18/2023 11:30 AM Ordering Location: [facility] Endoscopy Received: 08/18/2023 01:21 PM Pathologist: Rome Rodriguez MD Specimens: A) - ANTRUM (STOMACH) BIOPSY, R/O H. Pylori B) - ESOPHAGUS LOWER BIOPSY, R/O Moses's C) - ESOPHAGUS LOWER BIOPSY, 3cm Moses's segment Performed By: #### S #### [facility] CLIA [id number] [address] [place] [address] FINAL DIAGNOSIS [facility] Comment on above: Order Comment: Speci abdulaziz Type: TISSUE SPECIMEN Ordering Facility: [facility] Address: [address] [place] [address] Result Comment: Bhavya catalan, antrum, biopsy: - Antral reactive gastropathy. - [...] or dysplasia. Performed By: #### S #### [facility] CLIA [id number] [address] [place] [address] OF [facility] FINAL PERFORMING LAB [facility] Comment on above: Order Comment: Speci abdulaziz Type: TISSUE SPECIMEN Ordering Facility: [facility] Address: [address] [place] [address] Result Comment: Diag nostic interpretation performed at [facility], [address] [place] [address] CLIA# [id number] [employer]: Aniceto Bee M.D. Performed By: #### S #### [facility] CLIA [id number] [address] [place] [address] STATES OF [facility] GROSS DESCRIPTION [facility] Comment on above: Order Comment: Speci men Type: TISSUE SPECIMEN Ordering Facility: [facility] Address: [address] [place] [address] Result Comment: A. A NTRUM (STOMACH) BIOPSY [...] in one cassette. Gross examination performed at [facility], [address] [place] [address], [address] August 18, 2023 8:14 PM Performed By: #### S #### [facility] CLIA [id number] [address] [place] [id number] OF [facility] Upper GI endoscopyon 024 Upper GI endoscopy [facility] Gastrointestinal Endoscopy Patient Name: Elizabeth Persaud Procedure Date: 08/18/2023 11:06 AM Date of : 1945 Admit Type: Outpatient Age: 78 Room: [facility] Gender: Female Note Status: Finalized Attending MD: Katheryn Stokes MD, [id number] Procedure: Upper GI endoscopy Indications: Dysphagia Providers: [...] by the physician, the nurse and the air analysis technician in the procedure room. Mental Status Examination: [...] 1 week. Procedure Code(s): --- Professional --- 05727, Esophagogastroduodenos copy, flexible, transoral; with biopsy, single or multiple CPT copyright 2020 [employer]. All rights reserved. The codes documented in this report are preliminary and upon patient registration representative review may be revised to meet current [...] Blood Loss: Estimated blood loss: none. Normal [facility] Basophil percentageOrdered B y: Susan Mac on 06-17-2023 Chloride [Moles/Vol] 101 mmol/L 98-107 [facility] Glucose [Mass/Vol] 101 mg/dL 74-106 [facility] Comment on above: Fasting Glucose resu lt from 100 to 125 mg/dL suggests IMPAIRED HOMEOSTASIS per A.D.A. criteria. Potassium [Moles/Vol] 3.8 mmol/L 3.5-5.[address] [facility] Sodium [Moles/Vol] 136 mmol/L 136-145 [facility] Laboratory - Chemistry and C hemistry - challengeOrdered By: Susan Mac on 06-17-2023 CO2 [Moles/Vol] 32.0 mmol/L 21.0-32.0 [facility] Urea nitrogen/Creatinine [Mass ratio] 31.0 mg/mg 10-20 [facility] No Panel InformationOrdered By: Susan Mac on 06-17-2023 Estimated GFR (MDRD) Amer 60 mL/min >60 [facility] Comment on above: GFR Calc Estimated GFR (MDRD) Non-Af Amer 50 mL/min >60 [facility] Comment on above: Non- GFR Calc Serum or plasma calcium michelle urement (mass/volume)Ordered By: Susan Mac on 06-17-2023 Calcium [Mass/Vol] 9.4 mg/dL 8.5-10.1 [facility] Serum or plasma creatinine m easurement (mass/volume)Ordered By: Susan Mac on 06-17-2023 Creatinine [Mass/Vol] 1.13 mg/dL 0.55-1.[address] [facility] Comment on above: The validity of the calculated GFR & GFRAA in patients over 70 years has not been determined. Clinical correlation is essential. Serum or plasma urea nitroge n measurement (mass/volume)Ordered By: Susan Mac on 06-17-2023 Urea nitrogen [Mass/Vol] 35 mg/dL 7-18 [facility] Thin prep Papanicolaou smear with manual screeningOrdered By: Susan Mac on 06-17-2023 Thin prep Papanicolaou smear with manual screening 3 5-15 [facility] No Panel Informationon 01-27 [facility] SPIROMETRY WITH DILATOR IF O BSTRUCTEDon 01-27-2023 DLCO (ml/min/mmHg) 11.46 ml/min/mmHg [facility] DLCO/VA (ml/min/mmHg/L) 3.44 ml/min/mmHg/L [facility] QLG16-44% POST (L/S) 0.46 L/S [facility] KLW61-86% PRE (L/S) 0.35 L/S [facility] FEV1 PRE (L) 0.95 L [facility] FEV1/FVC POST (%) 61 % [facility] FEV1/FVC PRE (%) 59 % [facility] FEV1_POST (L) 1.02 L [facility] FVC POST (L) 1.67 L [facility] FVC PRE (L) 1.62 L [facility] PEF POST (L/S) 2.74 L/S [facility] PEF PRE (L/S) 2.94 L/S [facility] VA (L) 3.33 L [facility] XR Shoulder - right 2 Viewso n 01-27-2023 IMPRESSION: Degenerative disease of the right shoulder. No acute fracture or dislocation. Manager State: [facility] Transcribe Date/Time: Jan 27 2023 4:29P Dictated by : ACACIA TORRES MD This examination was interpreted and the report reviewed and electronically signed by: ACACIA TORRES MD on Jan 27 2023 4:30PM [facility] DIVISION OF RADIOLOGY * * *Final Report* [...] rotator cuff tear. DIVISION OF RADIOLOGY Provider, [facility] Annika Vieira - 01/27/2023 * * *Final Report* * [...] right shoulder. No acute fracture or dislocation. Manager State: [facility] Transcribe Date/Time: Jan 27 2023 4:29P Dictated by : ACACIA TORRES MD This examination was interpreted and the report reviewed and electronically signed by: ACACIA TORRES MD on Jan 27 2023 4:30PM [facility] Absolute lymphocyte countOrd ered By: DIANNA BALLARD on 01-23-2023 Lymphocytes Auto (Unsp spec) [#/Vol] 2.97 10*3/uL 0.83-4.51 [facility] Basophil percentageOrdered B y: DIANNA BALLARD on 01-23-2023 Basophils/100 WBC (Bld) 0.3 % 0-1 [facility] Chloride [Moles/Vol] 103 mmol/L 98-107 [facility] Eosinophils/100 WBC (Bld) 1.8 % 0-5 [facility] Glucose [Mass/Vol] 99 mg/dL 74-106 [facility] Neutrophils (Bld) [#/Vol] 4.2 10*3/uL 2.0-7.7 [facility] Neutrophils/100 WBC (Bld) 52.5 % 47-70 [facility] Potassium [Moles/Vol] 4.5 mmol/L 3.5-5.[address] [facility] Sodium [Moles/Vol] 138 mmol/L 136-145 [facility] WBC (Bld) [#/Vol] 8.0 10*3/uL 4.4-11.0 [facility] Blood erythrocytes count (nu mber/volume)Ordered By: DIANNA BALLARD on 01-23-2023 RBC (Bld) [#/Vol] 3.77 10*6/uL 4.2-5.4 [facility] Blood hemoglobin measurement (mass/volume)Ordered By: DIANNA BALLARD on 01-23-2023 Hemoglobin (Bld) [Mass/Vol] 11.5 g/dL 12.0-15.0 [facility] Blood lymphocytes/100 leukoc ytesOrdered By: DIANNA BALLARD on 01-23-2023 Lymphocytes/100 WBC (Bld) 37.2 % 19-41 [facility] Blood monocytes/100 leukocyt esOrdered By: DIANNA BALLARD on 01-23-2023 Monocytes/100 WBC (Bld) 7.9 % 0-10 [facility] Blood platelet mean volumeOr dered By: DIANNA BALLARD on 01-23-2023 Platelet mean volume (Bld) [Entitic vol] 10.1 fL 6.2-12.0 [facility] Determination of erythrocyte mean corpuscular volume (MCV)Ordered By: DIANNA BALLARD on 01-23-2023 MCV (RBC) [Entitic vol] 95.5 fL 81-99 [facility] Hematocrit Auto (Bld) [Volum e fraction]Ordered By: DIANNA BALLARD on 01-23-2023 Hematocrit (Bld) [Volume fraction] 36.0 % 37-47 [facility] Laboratory - Chemistry and C hemistry - challengeOrdered By: DIANNA BALLARD on 01-23-2023 CO2 [Moles/Vol] 33.0 mmol/L 21.0-32.0 [facility] Natriuretic peptide B (Bld) [Mass/Vol] 252.5 pg/mL 0-100 [facility] Urea nitrogen/Creatinine [Mass ratio] 26.5 mg/mg 10-20 [facility] Laboratory - Hematology and Cell countsOrdered By: DIANNA BALLARD on 01-23-2023 Erythrocyte distribution width (RBC) [Entitic vol] 45.1 fL 35.1-43.9 [facility] Erythrocyte distribution width (RBC) [Ratio] 13.1 % 11.6-14.6 [facility] Immature granulocytes/100 WBC (Bld) 0.300 % 0.0-0.9 [facility] Comment on above: IG% - Immature Granu locytes (promyelocytes, myelocytes and metamyelocytes) > 1% indicates that a LEFT SHIFT is Present. MCH (RBC) [Entitic mass] 30.5 pg 27.0-32.0 [facility] Nucleated RBC/100 WBC (Bld) [Ratio] 0 % 0-5 [facility] MCHC Auto (RBC) [Mass/Vol]Or dered By: DIANNA BALLARD on 01-23-2023 MCHC (RBC) [Mass/Vol] 31.9 g/dL 32-[address] [facility] No Panel InformationOrdered By: DIANNA BALLARD on 01-23-2023 D-Dimer Quantitative (PE/DVT) 0.36 FEU/ug/m 0.27-0.49 [facility] Comment on above: NORMAL D-Dimer level (<0.50) indicates no DVT or PE. Estimated GFR (MDRD) Amer 78 mL/min >60 [facility] Comment on above: GFR Calc Estimated GFR (MDRD) Non-Af Amer 64 mL/min >60 [facility] Comment on above: Non- GFR Calc No Panel Informationon 01-23 Radiology Study observation (narrative) [facility] Platelets bldOrdered By: DIANNA BALLARD on 01-23-2023 Platelets (Bld) [#/Vol] 314 10*3/uL 150-450 [facility] Serum or plasma calcium michelle urement (mass/volume)Ordered By: DIANNA BALLARD on 01-23-2023 Calcium [Mass/Vol] 9.5 mg/dL 8.5-10.1 [facility] Serum or plasma creatinine m easurement (mass/volume)Ordered By: DIANNA BALLARD on 01-23-2023 Creatinine [Mass/Vol] 0.91 mg/dL 0.55-1.[address] [facility] Comment on above: The validity of the calculated GFR & GFRAA in patients over 70 years has not been determined. Clinical correlation is essential. Serum or plasma urea nitroge n measurement (mass/volume)Ordered By: DIANNA BALLARD on 01-23-2023 Urea nitrogen [Mass/Vol] 24 mg/dL 7-18 [facility] Thin prep Papanicolaou smear with manual screeningOrdered By: DIANNA BALLARD on 01-23-2023 Thin prep Papanicolaou smear with manual screening 2 5-15 [facility] XR Chest PA and Lateralon IMPRESSION: No acute radiographic abnormality. Manager State: [place] Transcribe Date/Time: Jan 23 2023 4:17P Dictated by : ACACIA TORRES MD This examination was interpreted and the report reviewed and electronically signed by: ACACIA TORRES MD on Jan 23 2023 4:18PM [facility] DIVISION OF RADIOLOGY * * *Final Report* [...] the thoracic spine DIVISION OF RADIOLOGY Provider, Miryam Ann[facility] - 01/23/2023 * * *Final Report* [...] spine IMPRESSION IMPRESSION: No acute radiographic abnormality. Manager State: [place] Transcribe Date/Time: Sep 14 2023 4:17P Dictated by : ACACIA TORRES MD This examination was interpreted and the report reviewed and electronically signed by: ACACIA TORRES MD on Jan 23 2023 4:18PM EST [facility] XR Chest PA and LateralOrder ed By: [facility]cf Provider on 01-23-2023 [facility] Absolute lymphocyte countOrd ered By: Josep Vasquez on 01-02-2023 Lymphocytes Auto (Unsp spec) [#/Vol] 2.13 10*3/uL 0.83-4.51 [facility] Basophil percentageOrdered B y: Josep Vasquez on 01-02-2023 Basophils/100 WBC (Bld) 0.2 % 0-1 [facility] Chloride [Moles/Vol] 105 mmol/L 98-107 [facility] Eosinophils/100 WBC (Bld) 2.1 % 0-5 [facility] Glucose [Mass/Vol] 108 mg/dL 74-106 [facility] Comment on above: Fasting Glucose resu lt from 100 to 125 mg/dL suggests IMPAIRED HOMEOSTASIS per A.D.A. criteria. Neutrophils (Bld) [#/Vol] 5.4 10*3/uL 2.0-7.7 [facility] Neutrophils/100 WBC (Bld) 64.1 % 47-70 [facility] Potassium [Moles/Vol] 4.7 mmol/L 3.5-5.[address] [facility] Sodium [Moles/Vol] 140 mmol/L 136-145 [facility] WBC (Bld) [#/Vol] 8.5 10*3/uL 4.4-11.0 [facility] Blood erythrocytes count (nu mber/volume)Ordered By: Josep Vasquez on 01-02-2023 RBC (Bld) [#/Vol] 3.42 10*6/uL 4.2-5.4 [facility] Blood hemoglobin measurement (mass/volume)Ordered By: Josep Vasquez on 01-02-2023 Hemoglobin (Bld) [Mass/Vol] 10.1 g/dL 12.0-15.0 [facility] Blood lymphocytes/100 leukoc ytesOrdered By: Josep Vasquez on 01-02-2023 Lymphocytes/100 WBC (Bld) 25.2 % 19-41 [facility] Blood monocytes/100 leukocyt esOrdered By: Josep Vasquez on 01-02-2023 Monocytes/100 WBC (Bld) 8.0 % 0-10 [facility] Blood platelet mean volumeOr dered By: Josep Vasquez on 01-02-2023 Platelet mean volume (Bld) [Entitic vol] 9.7 fL 6.2-12.0 [facility] Determination of erythrocyte mean corpuscular volume (MCV)Ordered By: Josep Vasquez on 01-02-2023 MCV (RBC) [Entitic vol] 95.3 fL 81-99 [facility] Hematocrit Auto (Bld) [Volum e fraction]Ordered By: Josep Vasquez on 01-02-2023 Hematocrit (Bld) [Volume fraction] 32.6 % 37-47 [facility] Laboratory - Chemistry and C hemistry - challengeOrdered By: Josep Vasquez on 01-02-2023 CO2 [Moles/Vol] 33.0 mmol/L 21.0-32.0 [facility] Urea nitrogen/Creatinine [Mass ratio] 32.1 mg/mg 10-20 [facility] Laboratory - Hematology and Cell countsOrdered By: Josep Vasquez on 01-02-2023 Erythrocyte distribution width (RBC) [Entitic vol] 44.7 fL 35.1-43.9 [facility] Erythrocyte distribution width (RBC) [Ratio] 12.8 % 11.6-14.6 [facility] Immature granulocytes/100 WBC (Bld) 0.400 % 0.0-0.9 [facility] Comment on above: IG% - Immature Granu locytes (promyelocytes, myelocytes and metamyelocytes) > 1% indicates that a LEFT SHIFT is Present. MCH (RBC) [Entitic mass] 29.5 pg 27.0-32.0 [facility] Nucleated RBC/100 WBC (Bld) [Ratio] 0 % 0-5 [facility] MCHC Auto (RBC) [Mass/Vol]Or dered By: Josep Vasquez on 01-02-2023 MCHC (RBC) [Mass/Vol] 31.0 g/dL 32-[address] [facility] No Panel InformationOrdered By: Josep Vasquez on 01-02-2023 Estimated Creatinine Clearance Calc 28.00 ml/min [facility] Estimated GFR (MDRD) Amer 51 mL/min >60 [facility] Comment on above: GFR Calc Estimated GFR (MDRD) Non-Af Amer 42 mL/min >60 [facility] Comment on above: Non- GFR Calc Platelets bldOrdered By: Eliazar Vasquez on 01-02-2023 Platelets (Bld) [#/Vol] 245 10*3/uL 150-450 [facility] Serum or plasma calcium michelle urement (mass/volume)Ordered By: Josep Vasquez on 01-02-2023 Calcium [Mass/Vol] 8.6 mg/dL 8.5-10.1 [facility] Serum or plasma creatinine m easurement (mass/volume)Ordered By: Josep Vasquez on 01-02-2023 Creatinine [Mass/Vol] 1.31 mg/dL 0.55-1.[address] [facility] Comment on above: The validity of the calculated GFR & GFRAA in patients over 70 years has not been determined. Clinical correlation is essential. Serum or plasma urea nitroge n measurement (mass/volume)Ordered By: Josep Vasquez on 01-02-2023 Urea nitrogen [Mass/Vol] 42 mg/dL 7-18 [facility] Thin prep Papanicolaou smear with manual screeningOrdered By: Josep Vasquez on 01-02-2023 Thin prep Papanicolaou smear with manual screening 2 5-15 [facility] Basophil percentageOrdered B y: Josep Vasquez on 01-01-2023 Basophil percentage 5.3 mg/dL 2.5-4.9 [facility] Laboratory - Chemistry and C hemistry - challengeOrdered By: Josep Vasquez on 01-01-2023 Magnesium [Mass/Vol] 2.6 mg/dL 1.6-2.6 [facility] Absolute lymphocyte countOrd ered By: Sohan Shelton on 12-31-2022 Lymphocytes Auto (Unsp spec) [#/Vol] 3.39 10*3/uL 0.83-4.51 [facility] Assessment of wrist artery p atency prior to arterial punctureOrdered By: Sohan Shelton on 12-31-2022 Arterial patency Wrist artery --pre arterial puncture Positive [facility] Base excessOrdered By: Florencio Shelton on 12-31-2022 Base excess Calc (BldV) [Moles/Vol] 1 mmol/L -2-2 [facility] Basophil percentageOrdered B y: Stephanie Scales on 12-31-2022 Bilirubin [Mass/Vol] 0.40 mg/dL 0.20-1.00 [facility] Comment on above: For patients on eltr ombopag therapy, use of Dimension [place] TBIL is not recommended. Protein [Mass/Vol] 6.8 g/dL 6.4-8.2 [facility] Basophil percentageOrdered B y: Sohan Shelton on 12-31-2022 Basophil percentage 26.2 mmol/L 22-26 [facility] Basophils/100 WBC (Bld) 96 % 95-99 [facility] Basophils/100 WBC (Bld) 0.3 % 0-1 [facility] Chloride [Moles/Vol] 107 mmol/L 98-107 [facility] Eosinophils/100 WBC (Bld) 0.7 % 0-5 [facility] Glucose [Mass/Vol] 148 mg/dL 74-106 [facility] Comment on above: Fasting Glucose resu lt greater than or equal to 126 mg/dL suggests DIABETES MELLITUS per A.D.A. criteria. Neutrophils (Bld) [#/Vol] 11.7 10*3/uL 2.0-7.7 [facility] Neutrophils/100 WBC (Bld) 71.3 % 47-70 [facility] Potassium [Moles/Vol] 4.5 mmol/L 3.5-5.[address] [facility] Sodium [Moles/Vol] 142 mmol/L 136-145 [facility] WBC (Bld) [#/Vol] 16.3 10*3/uL 4.4-11.0 [facility] Blood erythrocytes count (nu mber/volume)Ordered By: Sohan Shelton on 12-31-2022 RBC (Bld) [#/Vol] 4.10 10*6/uL 4.2-5.4 [facility] Blood hemoglobin measurement (mass/volume)Ordered By: Sohan Shelton on 12-31-2022 Hemoglobin (Bld) [Mass/Vol] 12.4 g/dL 12.0-15.0 [facility] Blood lymphocytes/100 leukoc ytesOrdered By: Sohan Shelton on 12-31-2022 Lymphocytes/100 WBC (Bld) 20.8 % 19-41 [facility] Blood monocytes/100 leukocyt esOrdered By: Sohan Shelton on 12-31-2022 Monocytes/100 WBC (Bld) 6.4 % 0-10 [facility] Blood platelet mean volumeOr dered By: Sohan Shelton on 12-31-2022 Platelet mean volume (Bld) [Entitic vol] 10.2 fL 6.2-12.0 [facility] CO2 (BldA) [Partial pressure ]Ordered By: Sohan Shelton on 12-31-2022 CO2 (Bld) [Partial pressure] 44.6 mm[Hg] 35-45 [facility] Determination of erythrocyte mean corpuscular volume (MCV)Ordered By: Sohan Shelton on 12-31-2022 MCV (RBC) [Entitic vol] 93.4 fL 81-99 [facility] Hematocrit Auto (Bld) [Volum e fraction]Ordered By: Sohan Shelton on 12-31-2022 Hematocrit (Bld) [Volume fraction] 38.3 % 37-47 [facility] Laboratory - Chemistry and C hemistry - challengeOrdered By: Stephanie Scales on 12-31-2022 ALP [Catalytic activity/Vol] 100 U/L 45-117 [facility] ALT [Catalytic activity/Vol] 114 U/L 13-56 [facility] Globulin (S) [Mass/Vol] 3.2 g/dL 2.2-4.2 [facility] Laboratory - Chemistry and C hemistry - challengeOrdered By: Sohan Shelton on 12-31-2022 CO2 [Moles/Vol] 29.0 mmol/L 21.0-32.0 [facility] Natriuretic peptide B (Bld) [Mass/Vol] 394.7 pg/mL 0-100 [facility] Urea nitrogen/Creatinine [Mass ratio] 27.9 mg/mg 10-20 [facility] Laboratory - Hematology and Cell countsOrdered By: Sohan Shelton on 12-31-2022 Erythrocyte distribution width (RBC) [Entitic vol] 43.9 fL 35.1-43.9 [facility] Erythrocyte distribution width (RBC) [Ratio] 12.9 % 11.6-14.6 [facility] Immature granulocytes/100 WBC (Bld) 0.500 % 0.0-0.9 [facility] Comment on above: IG% - Immature Granu locytes (promyelocytes, myelocytes and metamyelocytes) > 1% indicates that a LEFT SHIFT is Present. MCH (RBC) [Entitic mass] 30.2 pg 27.0-32.0 [facility] Nucleated RBC/100 WBC (Bld) [Ratio] 0 % 0-5 [facility] MCHC Auto (RBC) [Mass/Vol]Or dered By: Sohan Shelton on 12-31-2022 MCHC (RBC) [Mass/Vol] 32.4 g/dL 32-[address] [facility] No Panel InformationOrdered By: Stephanie Scales on 12-31-2022 Troponin I High Sensitivity 57 pg/mL 3.0-54.0 [facility] Comment on above: Please Note: New Debra t Units and Gender Specific Reference Ranges. For more information see Policy Stat Procedure [place] High Sensitivity Troponin (TNIH) and attachments. Thyroid Stimulating Hormone (TSH) 2.77 uIU/mL 0.358-3.74 [facility] Streptococcus pneumoniae Antigen (M [facility] Streptococcus pneumoniae Antigen (M [facility] No Panel InformationOrdered By: Sohan Shelton on 12-31-2022 Bedside Blood Gas PEEP 8 [facility] Blood Gas Clinical Comments BIP 23/12 R12 45% [facility] Blood Gas Oxygen Percent 45 [facility] Blood Gas Respiration Rate 12 [facility] Blood Gas Sample Site R Brach [facility] Blood Gas Specimen Type ART W [facility] Blood Gas Total CO2 28 mmol/L [facility] Oxygen Delivery Device BiPAP [facility] Estimated Creatinine Clearance Calc 28.43 ml/min [facility] Estimated GFR (MDRD) Amer 52 mL/min >60 [facility] Comment on above: GFR Calc Estimated GFR (MDRD) Non-Af Amer 43 mL/min >60 [facility] Comment on above: Non- GFR Calc Troponin I High Sensitivity 6 pg/mL 3.0-54.0 [facility] Comment on above: Please Note: New Debra t Units and Gender Specific Reference Ranges. For more information see Policy Stat Procedure [place] High Sensitivity Troponin (TNIH) and attachments. Oxygen (BldA) [Partial press ure]Ordered By: Sohan Shelton on 12-31-2022 Oxygen (Bld) [Partial pressure] 84 mmHG 75-100 [facility] Platelets bldOrdered By: Laura Shelton on 12-31-2022 Platelets (Bld) [#/Vol] 335 10*3/uL 150-450 [facility] Respiratory pathogens detect ion panel by molecular detection methodOrdered By: Stephanie Scales on 12-31-2022 Respiratory pathogens DNA and RNA panel NANI+probe (Resp) [facility] Respiratory pathogens DNA and RNA panel NANI+probe (Resp) [facility] Serum or plasma albumin michelle urement (mass/volume)Ordered By: Stephanie Scales on 12-31-2022 Albumin [Mass/Vol] 3.6 g/dL 3.2-5.0 [facility] Serum or plasma albumin/glob ulin mass ratioOrdered By: Stephanie Scales on 12-31-2022 Albumin/Globulin [Mass ratio] 1.1 {ratio} 0.9-2.4 [facility] Serum or plasma calcium michelle urement (mass/volume)Ordered By: Sohan Shelton on 12-31-2022 Calcium [Mass/Vol] 9.5 mg/dL 8.5-10.1 [facility] Serum or plasma creatinine m easurement (mass/volume)Ordered By: Sohan Shelton on 12-31-2022 Creatinine [Mass/Vol] 1.29 mg/dL 0.55-1.[address] [facility] Comment on above: The validity of the calculated GFR & GFRAA in patients over 70 years has not been determined. Clinical correlation is essential. Serum or plasma urea nitroge n measurement (mass/volume)Ordered By: Sohan Shelton on 12-31-2022 Urea nitrogen [Mass/Vol] 36 mg/dL 7-18 [facility] Thin prep Papanicolaou smear with manual screeningOrdered By: Stephanie Scales on 12-31-2022 Thin prep Papanicolaou smear with manual screening 49 U/L 15-37 [facility] Thin prep Papanicolaou smear with manual screeningOrdered By: Sohan Shelton on 12-31-2022 Thin prep Papanicolaou smear with manual screening 6 5-15 [facility] Urine Legionella pneumophila antigen detectionOrdered By: Stephanie Scales on 12-31-2022 L. pneumophila Ag Ql (U) [facility] L. pneumophila Ag Ql (U) [facility] pH measurementOrdered By: Rina Shelton on 12-31-2022 pH (Unsp spec) 7.38 [pH] 7.35-7.45 [facility] Basic metabolic 2000 panelon 12-26-2022 Anion gap [Moles/Vol] 11 mmol/L 9 - 18 mmol/L [facility] Calcium [Mass/Vol] 9.6 mg/dL 8.5 - 10. 2 mg/dL [facility] Chloride [Moles/Vol] 102 mmol/L 97 - 10 5 mmol/L [facility] CO2 [Moles/Vol] 26 mmol/L 22 - 30 mmol/L [facility] Creatinine [Mass/Vol] 1.03 mg/dL High 0.58 - 0.96 mg/dL [facility] Estimated Glomerular Filtration Rate 57 mL/min/1.73m Low >=60 mL/min/1.73 m [facility] Glucose [Mass/Vol] 93 mg/dL 74 - 99 mg/dL [facility] Potassium [Moles/Vol] 4.1 mmol/L 3.7 - 5.1 mmol/L [facility] Sodium [Moles/Vol] 139 mmol/L 136 - 144 mmol/L [facility] Urea nitrogen [Mass/Vol] 28 mg/dL High 7 - 21 mg/dL [facility] CBC panel Auto (Bld)on 12-26 Erythrocyte distribution width (RBC) [Ratio] 12.7 % 11.5 - 15.0 % [facility] Hematocrit (Bld) [Volume fraction] 36.4 % 36.0 - 46.0 % [facility] Hemoglobin (Bld) [Mass/Vol] 11.8 g/dL 11.5 - 15.5 g/dL [facility] MCH (RBC) [Entitic mass] 29.4 pg 26.0 - 34.0 pg [facility] MCHC (RBC) [Mass/Vol] 32.4 g/dL 30.5 - 36.0 g/dL [facility] MCV (RBC) [Entitic vol] 90.5 fL 80.0 - 100.0 fL [facility] Nucleated RBC (Bld) [#/Vol] <0.01 k/uL [facility] Platelet mean volume (Bld) [Entitic vol] 9.9 fL 9.0 - 12.7 fL [facility] Platelets (Bld) [#/Vol] 296 10*3/uL 150 - 400 k/uL [facility] RBC (Bld) [#/Vol] 4.02 10*6/uL 3.90 - 5.2 0 m/uL [facility] WBC (Bld) [#/Vol] 8.73 10*3/uL 3.70 - 11.00 k/uL [facility] No Panel Informationon 12-26 [facility] 2019 CORONAVIRUSon 3 SARS-CoV-2 (COVID-19) RNA NANI+probe Ql (Resp) Not detected See comment [facility] Comprehensive metabolic 2000 panelon 12-13-2022 Albumin [Mass/Vol] 4.2 g/dL 3.9 - 4.9 g/dL [facility] ALP [Catalytic activity/Vol] 83 U/L 34 - 123 U/L [facility] ALT [Catalytic activity/Vol] 50 U/L High 7 - 38 U/L [facility] Anion gap [Moles/Vol] 12 mmol/L 9 - 18 mmol/L [facility] AST [Catalytic activity/Vol] 37 U/L High 13 - 35 U/L [facility] Bilirubin [Mass/Vol] 0.4 mg/dL 0.2 - 1 .3 mg/dL [facility] Calcium [Mass/Vol] 9.6 mg/dL 8.5 - 10. 2 mg/dL [facility] Chloride [Moles/Vol] 103 mmol/L 97 - 10 5 mmol/L [facility] CO2 [Moles/Vol] 28 mmol/L 22 - 30 mmol/L [facility] Creatinine [Mass/Vol] 1.07 mg/dL High 0.58 - 0.96 mg/dL [facility] Estimated Glomerular Filtration Rate 54 mL/min/1.73m Low >=60 mL/min/1.73 m [facility] Glucose [Mass/Vol] 87 mg/dL 74 - 99 mg/dL [facility] Potassium [Moles/Vol] 4.7 mmol/L 3.7 - 5.1 mmol/L [facility] Protein [Mass/Vol] 6.6 g/dL 6.3 - 8.0 g/dL [facility] Sodium [Moles/Vol] 143 mmol/L 136 - 144 mmol/L [facility] Urea nitrogen [Mass/Vol] 32 mg/dL High 7 - 21 mg/dL [facility] NT PRO BNPon 12-13-2022 Natriuretic peptide.B prohormone N-Terminal [Mass/Vol] 516 pg/mL High <450 pg/mL [facility] XR Chest PA and Lateralon IMPRESSION: No acute radiographic abnormality. Mild cardiomegaly Manager State: [place] Transcribe Date/Time: Dec 13 2022 7:24A Dictated by : JEFFREY RICK MD This examination was interpreted and the report reviewed and electronically signed by: JEFFREY RICK MD on Dec 13 2022 7:25AM [facility] DIVISION OF RADIOLOGY * * *Final Report* [...] soft tissues: Unremarkable. DIVISION OF RADIOLOGY Provider, [facility] - 12/13/2022 * * *Final Report* * [...] IMPRESSION: No acute radiographic abnormality. Mild cardiomegaly Manager State: [place] Transcribe Date/Time: Dec 13 2022 7:24A Dictated by : JEFFREY RICK MD This examination was interpreted and the report reviewed and electronically signed by: JEFFREY RICK MD on Dec 13 2022 7:25AM EST [facility] XR Chest PA and LateralOrder ed By: Ccf Provider on 12-13-2022 [facility] CBC W Auto Differential pane l (Bld)on 12-12-2022 Basophils (Bld) [#/Vol] <0.11 k/uL C [facility] Basophils/100 WBC (Bld) 0.2 % C [facility] Differential cell count method Nom (Bld) Auto [facility] Eosinophils (Bld) [#/Vol] 0.14 10*3/uL <0.46 k/uL [facility] Eosinophils/100 WBC (Bld) 1.7 % [facility] Erythrocyte distribution width (RBC) [Ratio] 13.1 % 11.5 - 15.0 % [facility] Hematocrit (Bld) [Volume fraction] 34.8 % Low 36.0 - 46.0 % [facility] Hemoglobin (Bld) [Mass/Vol] 11.1 g/dL Low 11.5 - 15.5 g/dL [facility] Immature granulocytes (Bld) [#/Vol] <0.10 k/uL [facility] Immature granulocytes/100 WBC (Bld) 0.2 % [facility] Lymphocytes (Bld) [#/Vol] 2.82 10*3/uL 1.00 - 4.00 k/uL [facility] Lymphocytes/100 WBC (Bld) 35.1 % [facility] MCH (RBC) [Entitic mass] 29.4 pg 26.0 - 34.0 pg [facility] MCHC (RBC) [Mass/Vol] 31.9 g/dL 30.5 - 36.0 g/dL [facility] MCV (RBC) [Entitic vol] 92.1 fL 80.0 - 100.0 fL [facility] Monocytes (Bld) [#/Vol] 0.81 10*3/uL <0.87 k/uL [facility] Monocytes/100 WBC (Bld) 10.1 % C [facility] Neutrophils (Bld) [#/Vol] 4.22 10*3/uL 1.45 - 7.50 k/uL [facility] Neutrophils/100 WBC (Bld) 52.7 % [facility] Nucleated RBC (Bld) [#/Vol] 0.02 10*3/uL High <0.01 k/uL [facility] Nucleated RBC/100 WBC (Bld) [Ratio] 0.2 /100 WBC [facility] Platelet mean volume (Bld) [Entitic vol] 10.2 fL 9.0 - 12.7 fL [facility] Platelets (Bld) [#/Vol] 303 10*3/uL 150 - 400 k/uL [facility] RBC (Bld) [#/Vol] 3.78 10*6/uL Low 3.90 - 5.2 0 m/uL [facility] WBC (Bld) [#/Vol] 8.03 10*3/uL 3.70 - 11.00 k/uL [facility] [facility] STREP A MOLECULAR (POC)on Procedural Control Valid [facility] Strep A (POCT) Negative Negative [facility] XR CHEST 2V FRONTAL/LATon [facility] XR Chest PA and Lateralon Radiology Study observation (narrative) [facility] No Panel Informationon 09-28 IMPRESSION: Disc space narrowing in the mid and lower thoracic spine with increased kyphosis otherwise no acute fracture or malalignment Multilevel degenerative disc disease and facet arthropathy and mild scoliosis of the lumbar spine Manager State: [place] Transcribe Date/Time: Sep 28 2022 8:09A Dictated by : SHARMAINE COBURN MD This examination was interpreted and the report reviewed and electronically signed by: SHARMAINE COBURN MD on Sep 28 2022 8:10AM EST DIVISION OF RADIOLOGY [facility] XR Lumbar spine 3 Viewson * * [...] the lumbar spine.. DIVISION OF RADIOLOGY Provider, [facility] - 09/28/2022 * * *Final Report* * [...] and mild scoliosis of the lumbar spine Manager State: [facility] Transcribe Date/Time: Sep 28 2022 8:09A Dictated by : SHARMAINE COBURN MD This examination was interpreted and the report reviewed and electronically signed by: SHARMAINE COBURN MD on Sep 28 2022 8:10AM EST [facility] XR Ribs - left 2 Viewson IMPRESSION: No acute displaced rib fracture or acute cardiopulmonary process. Manager State: [facility] Transcribe Date/Time: Sep 28 2022 10:39P Dictated by : POWER PRETTY MD This examination was interpreted and the report reviewed and electronically signed by: POWER PRETTY MD on Sep 28 2022 10:41PM [facility] DIVISION OF RADIOLOGY * * *Final Report* [...] within normal limits. DIVISION OF RADIOLOGY Provider, [facility] - 09/28/2022 * * *Final Report* * [...] displaced rib fracture or acute cardiopulmonary process. Manager State: [place] Transcribe Date/Time: Sep 28 2022 10:39P Dictated by : POWER PRETTY MD This examination was interpreted and the report reviewed and electronically signed by: POWER PRETTY MD on Sep 28 2022 10:41PM EST [facility] XR Ribs - left 2 ViewsOrdere d By: [facility] Provider on 09-28-2022 [facility] XR Thoracic spine AP and Lat eral [...] the lumbar spine.. DIVISION OF RADIOLOGY Provider, [facility] - 09/28/2022 * * *Final Report* * [...] and mild scoliosis of the lumbar spine Manager State: [place] Transcribe Date/Time: Sep 28 2022 8:09A Dictated by : SHARMAINE COBURN MD This examination was interpreted and the report reviewed and electronically signed by: SHARMAINE COBURN MD on Sep 28 2022 8:10AM EST [facility] No Panel Informationon 09-26 Radiology Study observation (narrative) [facility] Basophil percentageOrdered B y: Caterina Bro on 08-27-2022 Chloride [Moles/Vol] 105 mmol/L 98-107 [facility] Glucose [Mass/Vol] 106 mg/dL 74-106 [facility] Comment on above: Fasting Glucose resu lt from 100 to 125 mg/dL suggests IMPAIRED HOMEOSTASIS per A.D.A. criteria. Potassium [Moles/Vol] 4.0 mmol/L 3.5-5.[address] [facility] Sodium [Moles/Vol] 139 mmol/L 136-145 [facility] Laboratory - Chemistry and C hemistry - challengeOrdered By: Caterina Bro on 08-27-2022 CO2 [Moles/Vol] 31.0 mmol/L 21.0-32.0 [facility] Natriuretic peptide B (Bld) [Mass/Vol] 545.4 pg/mL 0-100 [facility] Urea nitrogen/Creatinine [Mass ratio] 33.8 mg/mg 10-20 [facility] No Panel InformationOrdered By: Caterina Bro on 08-27-2022 Estimated GFR (MDRD) Amer 94 mL/min >60 [facility] Comment on above: GFR Calc Estimated GFR (MDRD) Non-Af Amer 78 mL/min >60 [facility] Comment on above: Non- GFR Calc Serum or plasma calcium michelle urement (mass/volume)Ordered By: Caterina Bro on 08-27-2022 Calcium [Mass/Vol] 10.1 mg/dL 8.5-10.1 [facility] Serum or plasma creatinine m easurement (mass/volume)Ordered By: Caterina Bro on 08-27-2022 Creatinine [Mass/Vol] 0.77 mg/dL 0.55-1.[address] [facility] Comment on above: The validity of the calculated GFR & GFRAA in patients over 70 years has not been determined. Clinical correlation is essential. Serum or plasma urea nitroge n measurement (mass/volume)Ordered By: Caterina Bro on 08-27-2022 Urea nitrogen [Mass/Vol] 26 mg/dL 7-18 [facility] Thin prep Papanicolaou smear with manual screeningOrdered By: Caterina Bro on 08-27-2022 Thin prep Papanicolaou smear with manual screening 3 5-15 [facility] Basophil percentageOrdered B y: Dr. Hall on 08-09-2022 Chloride [Moles/Vol] 110 mmol/L 98-107 [facility] Cholesterol [Mass/Vol] 132 mg/dL <200 [facility] Comment on above: <200 mg/dL Desirable 200-240 mg/dL Borderline >240 mg/dL High Risk Glucose [Mass/Vol] 84 mg/dL 74-106 [facility] Potassium [Moles/Vol] 3.8 mmol/L 3.5-5.[address] [facility] Sodium [Moles/Vol] 143 mmol/L 136-145 [facility] Triglyceride [Mass/Vol] 54 mg/dL <199 [facility] Comment on above: The drugs N-Acetylcy steine and Metamizole may falsely depress this assay.Serum Triglycerides Reference Interval Normal <150 mg/dL Borderline high 150 - 199 mg/dL High 200 - 499 mg/dL Very High > or = 500 mg/dL Laboratory - Chemistry and C hemistry - challengeOrdered By: Dr. Hall on 08-09-2022 CO2 [Moles/Vol] 28.0 mmol/L 21.0-32.0 [facility] Urea nitrogen/Creatinine [Mass ratio] 37.0 mg/mg 10-20 [facility] No Panel InformationOrdered By: Dr. Hall on 08-09-2022 Estimated Creatinine Clearance Calc 39.87 ml/min [facility] Estimated GFR (MDRD) Amer 77 mL/min >60 [facility] Comment on above: GFR Calc Estimated GFR (MDRD) Non-Af Amer 63 mL/min >60 [facility] Comment on above: Non- GFR Calc Serum or plasma calcium michelle urement (mass/volume)Ordered By: Dr. Hall on 08-09-2022 Calcium [Mass/Vol] 8.7 mg/dL 8.5-10.1 [facility] Serum or plasma cholesterol in HDL measurement (mass/volume)Ordered By: Dr. Hall on 08-09-2022 Cholesterol in HDL [Mass/Vol] 50 mg/dL >40 [facility] Comment on above: The drugs N-Acetylcy steine and Metamizole may falsely depress this assay. Reference Range HDL <40 mg/dL Low HDL Cholesterol HDL >or= 60 mg/dL High HDL Cholesterol Serum or plasma cholesterol in VLDL measurement (mass/volume)Ordered By: Dr. Hall on 08-09-2022 Cholesterol in VLDL [Mass/Vol] 11 mg/dL 5-40 [facility] Serum or plasma creatinine m easurement (mass/volume)Ordered By: Dr. Hall on 08-09-2022 Creatinine [Mass/Vol] 0.92 mg/dL 0.55-1.[address] [facility] Comment on above: The validity of the calculated GFR & GFRAA in patients over 70 years has not been determined. Clinical correlation is essential. Serum or plasma low density lipoprotein (LDL) cholesterol measurement (mass/volume)Ordered By: Dr. Hall on 08-09-2022 Cholesterol in LDL [Mass/Vol] 71 mg/dL 0-130 [facility] Serum or plasma urea nitroge n measurement (mass/volume)Ordered By: Dr. Hall on 08-09-2022 Urea nitrogen [Mass/Vol] 34 mg/dL 7-18 [facility] Thin prep Papanicolaou smear with manual screeningOrdered By: Dr. Hall on 08-09-2022 Thin prep Papanicolaou smear with manual screening 5 5-15 [facility] Absolute lymphocyte countOrd ered By: Dr. Dempsey on 08-08-2022 Lymphocytes Auto (Unsp spec) [#/Vol] 2.49 10*3/uL 0.83-4.51 [facility] Basophil percentageOrdered B y: Dr. Dempsey on 08-08-2022 Basophils/100 WBC (Bld) 0.3 % 0-1 [facility] Bilirubin [Mass/Vol] 0.40 mg/dL 0.20-1.00 [facility] Comment on above: For patients on eltr ombopag therapy, use of Dimension [place] TBIL is not recommended. Chloride [Moles/Vol] 104 mmol/L 98-107 [facility] Eosinophils/100 WBC (Bld) 1.2 % 0-5 [facility] Glucose [Mass/Vol] 103 mg/dL 74-106 [facility] Comment on above: Fasting Glucose resu lt from 100 to 125 mg/dL suggests IMPAIRED HOMEOSTASIS per A.D.A. criteria. Neutrophils (Bld) [#/Vol] 5.2 10*3/uL 2.0-7.7 [facility] Neutrophils/100 WBC (Bld) 59.9 % 47-70 [facility] Potassium [Moles/Vol] 4.2 mmol/L 3.5-5.[address] [facility] Protein [Mass/Vol] 7.1 g/dL 6.4-8.2 [facility] Sodium [Moles/Vol] 140 mmol/L 136-145 [facility] WBC (Bld) [#/Vol] 8.7 10*3/uL 4.4-11.0 [facility] Blood erythrocytes count (nu mber/volume)Ordered By: Dr. Dempsey on 08-08-2022 RBC (Bld) [#/Vol] 4.29 10*6/uL 4.2-5.4 [facility] Blood hemoglobin measurement (mass/volume)Ordered By: Dr. Dempsey on 08-08-2022 Hemoglobin (Bld) [Mass/Vol] 12.6 g/dL 12.0-15.0 [facility] Blood lymphocytes/100 leukoc ytesOrdered By: Dr. Dempsey on 08-08-2022 Lymphocytes/100 WBC (Bld) 28.7 % 19-41 [facility] Blood monocytes/100 leukocyt esOrdered By: Dr. Dempsey on 08-08-2022 Monocytes/100 WBC (Bld) 9.6 % 0-10 [facility] Blood platelet mean volumeOr dered By: Dr. Dempsey on 08-08-2022 Platelet mean volume (Bld) [Entitic vol] 10.5 fL 6.2-12.0 [facility] Determination of erythrocyte mean corpuscular volume (MCV)Ordered By: Dr. Dempsey on 08-08-2022 MCV (RBC) [Entitic vol] 90.7 fL 81-99 [facility] Direct bilirubinOrdered By: Dr. Dempsey on 08-08-2022 Bilirubin.direct [Mass/Vol] 0.16 mg/dL 0.00-0.30 [facility] Hematocrit Auto (Bld) [Volum e fraction]Ordered By: Dr. Dempsey on 08-08-2022 Hematocrit (Bld) [Volume fraction] 38.9 % 37-47 [facility] INR in Blood by Coagulation assayOrdered By: Dr. Dempsey on 08-08-2022 INR Coag (Bld) [Relative time] 1.5 {INR} [facility] Laboratory - Chemistry and C hemistry - challengeOrdered By: Dr. Dempsey on 08-08-2022 ALP [Catalytic activity/Vol] 124 U/L 45-117 [facility] ALT [Catalytic activity/Vol] 187 U/L 13-56 [facility] CO2 [Moles/Vol] 27.0 mmol/L 21.0-32.0 [facility] Globulin (S) [Mass/Vol] 3.4 g/dL 2.2-4.2 [facility] Urea nitrogen/Creatinine [Mass ratio] 28.2 mg/mg 10-20 [facility] Laboratory - CoagulationOrde red By: Dr. Dempsey on 08-08-2022 aPTT Coag (Bld) [Time] 34.7 s 24.1-36.2 [facility] PT Coag (PPP) [Time] 17.8 s 11.7-14.9 [facility] Laboratory - Hematology and Cell countsOrdered By: Dr. Depmsey on 08-08-2022 Erythrocyte distribution width (RBC) [Entitic vol] 45.7 fL 35.1-43.9 [facility] Erythrocyte distribution width (RBC) [Ratio] 14.0 % 11.6-14.6 [facility] Immature granulocytes/100 WBC (Bld) 0.300 % 0.0-0.9 [facility] Comment on above: IG% - Immature Granu locytes (promyelocytes, myelocytes and metamyelocytes) > 1% indicates that a LEFT SHIFT is Present. MCH (RBC) [Entitic mass] 29.4 pg 27.0-32.0 [facility] Nucleated RBC/100 WBC (Bld) [Ratio] 0 % 0-5 [facility] MCHC Auto (RBC) [Mass/Vol]Or dered By: Dr. Dempsey on 08-08-2022 MCHC (RBC) [Mass/Vol] 32.4 g/dL 32-[address] [facility] No Panel InformationOrdered By: Dr. Hall on 08-08-2022 Troponin I High Sensitivity 9 pg/mL 3.0-54.0 [facility] Comment on above: Please Note: New Debra t Units and Gender Specific Reference Ranges. For more information see Policy Stat Procedure [place] High Sensitivity Troponin (TNIH) and attachments. No Panel InformationOrdered By: Dr. Dempsey on 08-08-2022 Estimated Creatinine Clearance Calc 29.58 ml/min [facility] Estimated GFR (MDRD) Amer 54 mL/min >60 [facility] Comment on above: GFR Calc Estimated GFR (MDRD) Non-Af Amer 45 mL/min >60 [facility] Comment on above: Non- GFR Calc Troponin I High Sensitivity 8 pg/mL 3.0-54.0 [facility] Comment on above: Please Note: New Debra t Units and Gender Specific Reference Ranges. For more information see Policy Stat Procedure [place] High Sensitivity Troponin (TNIH) and attachments. Platelets bldOrdered By: Dr. Dempsey on 08-08-2022 Platelets (Bld) [#/Vol] 314 10*3/uL 150-450 [facility] Serum or plasma albumin michelle urement (mass/volume)Ordered By: Dr. Dempsey on 08-08-2022 Albumin [Mass/Vol] 3.7 g/dL 3.2-5.0 [facility] Serum or plasma calcium michelle urement (mass/volume)Ordered By: Dr. Dempsey on 08-08-2022 Calcium [Mass/Vol] 9.9 mg/dL 8.5-10.1 [facility] Serum or plasma creatinine m easurement (mass/volume)Ordered By: Dr. Dempsey on 08-08-2022 Creatinine [Mass/Vol] 1.24 mg/dL 0.55-1.[address] [facility] Comment on above: The validity of the calculated GFR & GFRAA in patients over 70 years has not been determined. Clinical correlation is essential. Serum or plasma urea nitroge n measurement (mass/volume)Ordered By: Dr. Dempsey on 08-08-2022 Urea nitrogen [Mass/Vol] 35 mg/dL 7-18 [facility] Thin prep Papanicolaou smear with manual screeningOrdered By: Dr. Dempsey on 08-08-2022 Thin prep Papanicolaou smear with manual screening 130 U/L 15-37 [facility] Thin prep Papanicolaou smear with manual screening 9 5-15 [facility] Absolute lymphocyte countOrd ered By: Caterina Bro on 07-25-2022 Lymphocytes Auto (Unsp spec) [#/Vol] 3.33 10*3/uL 0.83-4.51 [facility] Basophil percentageOrdered B y: Caterina Bro on 07-25-2022 Basophils/100 WBC (Bld) 0.3 % 0-1 [facility] Chloride [Moles/Vol] 105 mmol/L 98-107 [facility] Eosinophils/100 WBC (Bld) 1.3 % 0-5 [facility] Glucose [Mass/Vol] 107 mg/dL 74-106 [facility] Comment on above: Fasting Glucose resu lt from 100 to 125 mg/dL suggests IMPAIRED HOMEOSTASIS per A.D.A. criteria. Neutrophils (Bld) [#/Vol] 3.3 10*3/uL 2.0-7.7 [facility] Neutrophils/100 WBC (Bld) 44.7 % 47-70 [facility] Potassium [Moles/Vol] 3.8 mmol/L 3.5-5.[address] [facility] Sodium [Moles/Vol] 141 mmol/L 136-145 [facility] WBC (Bld) [#/Vol] 7.5 10*3/uL 4.4-11.0 [facility] Blood erythrocytes count (nu mber/volume)Ordered By: Caterina Bro on 07-25-2022 RBC (Bld) [#/Vol] 4.11 10*6/uL 4.2-5.4 [facility] Blood hemoglobin measurement (mass/volume)Ordered By: Caterina Bro on 07-25-2022 Hemoglobin (Bld) [Mass/Vol] 12.0 g/dL 12.0-15.0 [facility] Blood lymphocytes/100 leukoc ytesOrdered By: Caterina Bro on 07-25-2022 Lymphocytes/100 WBC (Bld) 44.6 % 19-41 [facility] Blood monocytes/100 leukocyt esOrdered By: Caterina Bro on 07-25-2022 Monocytes/100 WBC (Bld) 8.7 % 0-10 [facility] Blood platelet mean volumeOr dered By: Caterina Bro on 07-25-2022 Platelet mean volume (Bld) [Entitic vol] 10.2 fL 6.2-12.0 [facility] Determination of erythrocyte mean corpuscular volume (MCV)Ordered By: Caterina Bro on 07-25-2022 MCV (RBC) [Entitic vol] 91.0 fL 81-99 [facility] Hematocrit Auto (Bld) [Volum e fraction]Ordered By: Caterina Bro on 07-25-2022 Hematocrit (Bld) [Volume fraction] 37.4 % 37-47 [facility] Laboratory - Chemistry and C hemistry - challengeOrdered By: Caterina Bro on 07-25-2022 CO2 [Moles/Vol] 29.0 mmol/L 21.0-32.0 [facility] Free T4 [Mass/Vol] 1.18 ng/dL 0.76-1.46 [facility] Magnesium [Mass/Vol] 2.3 mg/dL 1.6-2.6 [facility] Natriuretic peptide B (Bld) [Mass/Vol] 434.5 pg/mL 0-100 [facility] Urea nitrogen/Creatinine [Mass ratio] 33.4 mg/mg 10-20 [facility] Laboratory - Hematology and Cell countsOrdered By: Caterina Bro on 07-25-2022 Erythrocyte distribution width (RBC) [Entitic vol] 46.4 fL 35.1-43.9 [facility] Erythrocyte distribution width (RBC) [Ratio] 13.9 % 11.6-14.6 [facility] Immature granulocytes/100 WBC (Bld) 0.400 % 0.0-0.9 [facility] Comment on above: IG% - Immature Granu locytes (promyelocytes, myelocytes and metamyelocytes) > 1% indicates that a LEFT SHIFT is Present. MCH (RBC) [Entitic mass] 29.2 pg 27.0-32.0 [facility] Nucleated RBC/100 WBC (Bld) [Ratio] 0 % 0-5 [facility] MCHC Auto (RBC) [Mass/Vol]Or dered By: Caterina Bro on 07-25-2022 MCHC (RBC) [Mass/Vol] 32.1 g/dL 32-[address] [facility] No Panel InformationOrdered By: Caterina Bro on 07-25-2022 Estimated GFR (MDRD) Amer 71 mL/min >60 [facility] Comment on above: GFR Calc Estimated GFR (MDRD) Non-Af Amer 58 mL/min >60 [facility] Comment on above: Non- GFR Calc Free Triiodothyronine (T3) pg/dL 1.4 pg/mL 2.18-3.98 [facility] Thyroid Stimulating Hormone (TSH) 3.08 uIU/mL 0.358-3.74 [facility] Platelets bldOrdered By: Rogelio Bro on 07-25-2022 Platelets (Bld) [#/Vol] 352 10*3/uL 150-450 [facility] Serum or plasma calcium michelle urement (mass/volume)Ordered By: Caterina Bro on 07-25-2022 Calcium [Mass/Vol] 9.5 mg/dL 8.5-10.1 [facility] Serum or plasma creatinine m easurement (mass/volume)Ordered By: Caterina Bro on 07-25-2022 Creatinine [Mass/Vol] 0.99 mg/dL 0.55-1.[address] [facility] Comment on above: The validity of the calculated GFR & GFRAA in patients over 70 years has not been determined. Clinical correlation is essential. Serum or plasma urea nitroge n measurement (mass/volume)Ordered By: Caterina Bro on 07-25-2022 Urea nitrogen [Mass/Vol] 33 mg/dL 7-18 [facility] Thin prep Papanicolaou smear with manual screeningOrdered By: Caterina Bro on 07-25-2022 Thin prep Papanicolaou smear with manual screening 7 5-15 [facility] Absolute lymphocyte countOrd ered By: Nagi Sharma on 07-12-2022 Lymphocytes Auto (Unsp spec) [#/Vol] 2.29 10*3/uL 0.83-4.51 [facility] Basophil percentageOrdered B y: Nagi Sharma on 07-12-2022 Basophils/100 WBC (Bld) 0.3 % 0-1 [facility] Chloride [Moles/Vol] 103 mmol/L 98-107 [facility] Eosinophils/100 WBC (Bld) 2.3 % 0-5 [facility] Glucose [Mass/Vol] 113 mg/dL 74-106 [facility] Comment on above: Fasting Glucose resu lt from 100 to 125 mg/dL suggests IMPAIRED HOMEOSTASIS per A.D.A. criteria. Neutrophils (Bld) [#/Vol] 3.0 10*3/uL 2.0-7.7 [facility] Neutrophils/100 WBC (Bld) 50.2 % 47-70 [facility] Potassium [Moles/Vol] 4.1 mmol/L 3.5-5.[address] [facility] Sodium [Moles/Vol] 140 mmol/L 136-145 [facility] WBC (Bld) [#/Vol] 6.0 10*3/uL 4.4-11.0 [facility] Blood erythrocytes count (nu mber/volume)Ordered By: Nagi Sharma on 07-12-2022 RBC (Bld) [#/Vol] 4.23 10*6/uL 4.2-5.4 [facility] Blood hemoglobin measurement (mass/volume)Ordered By: Nagi Sharma on 07-12-2022 Hemoglobin (Bld) [Mass/Vol] 12.2 g/dL 12.0-15.0 [facility] Blood lymphocytes/100 leukoc ytesOrdered By: Nagi Sharma on 07-12-2022 Lymphocytes/100 WBC (Bld) 38.2 % 19-41 [facility] Blood monocytes/100 leukocyt esOrdered By: Nagi Sharma on 07-12-2022 Monocytes/100 WBC (Bld) 8.8 % 0-10 [facility] Blood platelet mean volumeOr dered By: Nagi Sharma on 07-12-2022 Platelet mean volume (Bld) [Entitic vol] 10.0 fL 6.2-12.0 [facility] Determination of erythrocyte mean corpuscular volume (MCV)Ordered By: Nagi Sharma on 07-12-2022 MCV (RBC) [Entitic vol] 88.9 fL 81-99 [facility] Hematocrit Auto (Bld) [Volum e fraction]Ordered By: Nagi Sharma on 07-12-2022 Hematocrit (Bld) [Volume fraction] 37.6 % 37-47 [facility] Laboratory - Chemistry and C hemistry - challengeOrdered By: Nagi Sharma on 07-12-2022 CO2 [Moles/Vol] 28.0 mmol/L 21.0-32.0 [facility] Natriuretic peptide B (Bld) [Mass/Vol] 44.8 pg/mL 0-100 [facility] Urea nitrogen/Creatinine [Mass ratio] 34.4 mg/mg 10-20 [facility] Laboratory - Hematology and Cell countsOrdered By: Nagi Sharma on 07-12-2022 Erythrocyte distribution width (RBC) [Entitic vol] 44.1 fL 35.1-43.9 [facility] Erythrocyte distribution width (RBC) [Ratio] 13.7 % 11.6-14.6 [facility] Immature granulocytes/100 WBC (Bld) 0.200 % 0.0-0.9 [facility] Comment on above: IG% - Immature Granu locytes (promyelocytes, myelocytes and metamyelocytes) > 1% indicates that a LEFT SHIFT is Present. MCH (RBC) [Entitic mass] 28.8 pg 27.0-32.0 [facility] Nucleated RBC/100 WBC (Bld) [Ratio] 0 % 0-5 [facility] MCHC Auto (RBC) [Mass/Vol]Or dered By: Nagi Sharma on 07-12-2022 MCHC (RBC) [Mass/Vol] 32.4 g/dL 32-[address] [facility] No Panel InformationOrdered By: Nagi Sharma on 07-12-2022 Estimated GFR (MDRD) Amer 76 mL/min >60 [facility] Comment on above: GFR Calc Estimated GFR (MDRD) Non-Af Amer 62 mL/min >60 [facility] Comment on above: Non- GFR Calc Thyroid Stimulating Hormone (TSH) 2.27 uIU/mL 0.358-3.74 [facility] Platelets bldOrdered By: Reinaldo Sharma on 07-12-2022 Platelets (Bld) [#/Vol] 315 10*3/uL 150-450 [facility] Serum or plasma calcium michelle urement (mass/volume)Ordered By: Nagi Sharma on 07-12-2022 Calcium [Mass/Vol] 9.1 mg/dL 8.5-10.1 [facility] Serum or plasma creatinine m easurement (mass/volume)Ordered By: Nagi Sharma on 07-12-2022 Creatinine [Mass/Vol] 0.93 mg/dL 0.55-1.[address] [facility] Comment on above: The validity of the calculated GFR & GFRAA in patients over 70 years has not been determined. Clinical correlation is essential. Serum or plasma urea nitroge n measurement (mass/volume)Ordered By: Nagi Sharma on 07-12-2022 Urea nitrogen [Mass/Vol] 32 mg/dL 7-18 [facility] Thin prep Papanicolaou smear with manual screeningOrdered By: Nagi Sharma on 07-12-2022 Thin prep Papanicolaou smear with manual screening 9 5-15 [facility] CT ABD/PEL WO IVCONon [address] [facility] metabolic 2000 panelon 05-16-2022 Albumin [Mass/Vol] 4.3 g/dL 3.9 - 4.9 g/dL [facility] ALP [Catalytic activity/Vol] 96 U/L 34 - 123 U/L [facility] ALT [Catalytic activity/Vol] 27 U/L 7 - 38 U/L [facility] Anion gap [Moles/Vol] 14 mmol/L 9 - 18 mmol/L [facility] AST [Catalytic activity/Vol] 29 U/L 13 - 35 U/L [facility] Bilirubin [Mass/Vol] 0.3 mg/dL 0.2 - 1 .3 mg/dL [facility] Calcium [Mass/Vol] 10.2 mg/dL 8.5 - 10. 2 mg/dL [facility] Chloride [Moles/Vol] 98 mmol/L 97 - 10 5 mmol/L [facility] CO2 [Moles/Vol] 27 mmol/L 22 - 30 mmol/L [facility] Creatinine [Mass/Vol] 0.76 mg/dL 0.58 - 0.96 mg/dL [facility] Estimated Glomerular Filtration Rate 82 mL/min/1.73m >=60 mL/min/1.73 m [facility] Glucose [Mass/Vol] 79 mg/dL 74 - 99 mg/dL [facility] Potassium [Moles/Vol] 4.1 mmol/L 3.7 - 5.1 mmol/L [facility] Protein [Mass/Vol] 6.8 g/dL 6.3 - 8.0 g/dL [facility] Sodium [Moles/Vol] 139 mmol/L 136 - 144 mmol/L [facility] Urea nitrogen [Mass/Vol] 20 mg/dL 7 - 21 mg/dL [facility] T3 BLDon 05-16-2022 T3 [Mass/Vol] 109 ng/dL 79 - 165 ng/dL [facility] T4 FREE/FREE THYROXon 2022 Free T4 [Mass/Vol] 1.1 ng/dL 0.9 - 1.7 ng/dL [facility] TSH Don 05-16-2022 TSH Qn 3.900 m[IU]/L 0.270 - 4.200 mIU/L [facility] XR Chest PA and Lateralon IMPRESSION: No acute radiographic abnormality. Manager State: [place] Transcribe Date/Time: May 16 2022 10:28A Dictated by : JEFFREY RICK MD This examination was interpreted and the report reviewed and electronically signed by: JEFFREY RICK MD on May 16 2022 10:31AM EST DIVISION OF RADIOLOGY * * *Final [...] soft tissues: Unremarkable. DIVISION OF RADIOLOGY Provider, [facility] - 05/16/2022 * * *Final Report* * [...] Unremarkable. IMPRESSION IMPRESSION: No acute radiographic abnormality. Manager State: PSCB Transcribe Date/Time: May 16 2022 10:28A Dictated by : JEFFREY RICK MD This examination was interpreted and the report reviewed and electronically signed by: JEFFREY RICK MD on May 16 2022 10:31AM EST [facility] XR Chest PA and LateralOrder ed By: Ccf Provider on 05-16-2022 [facility] CBC W Auto Differential pane l (Bld)on 05-15-2022 Basophils (Bld) [#/Vol] 0.03 10*3/uL <0.11 k/uL [facility] Basophils/100 WBC (Bld) 0.4 % C [facility] Differential cell count method Nom (Bld) Auto [facility] Eosinophils (Bld) [#/Vol] 0.09 10*3/uL <0.46 k/uL [facility] Eosinophils/100 WBC (Bld) 1.1 % [facility] Erythrocyte distribution width (RBC) [Ratio] 12.7 % 11.5 - 15.0 % [facility] Hematocrit (Bld) [Volume fraction] 39.0 % 36.0 - 46.0 % [facility] Hemoglobin (Bld) [Mass/Vol] 12.4 g/dL 11.5 - 15.5 g/dL [facility] Immature granulocytes (Bld) [#/Vol] <0.10 k/uL [facility] Immature granulocytes/100 WBC (Bld) 0.2 % [facility] Lymphocytes (Bld) [#/Vol] 2.84 10*3/uL 1.00 - 4.00 k/uL [facility] Lymphocytes/100 WBC (Bld) 35.1 % [facility] MCH (RBC) [Entitic mass] 29.1 pg 26.0 - 34.0 pg [facility] MCHC (RBC) [Mass/Vol] 31.8 g/dL 30.5 - 36.0 g/dL [facility] MCV (RBC) [Entitic vol] 91.5 fL 80.0 - 100.0 fL [facility] Monocytes (Bld) [#/Vol] 0.65 10*3/uL <0.87 k/uL [facility] Monocytes/100 WBC (Bld) 8.0 % C [facility] Neutrophils (Bld) [#/Vol] 4.47 10*3/uL 1.45 - 7.50 k/uL [facility] Neutrophils/100 WBC (Bld) 55.2 % [facility] Nucleated RBC (Bld) [#/Vol] <0.01 k/uL [facility] Nucleated RBC/100 WBC (Bld) [Ratio] 0.0 /100 WBC [facility] Platelet mean volume (Bld) [Entitic vol] 10.3 fL 9.0 - 12.7 fL [facility] Platelets (Bld) [#/Vol] 396 10*3/uL 150 - 400 k/uL [facility] RBC (Bld) [#/Vol] 4.26 10*6/uL 3.90 - 5.2 0 m/uL [facility] WBC (Bld) [#/Vol] 8.10 10*3/uL 3.70 - 11.00 k/uL [facility] UA DIP, URINE (POC)on 2022 BILIRUBIN UA (POCT) Negative Negative [facility] CLARITY UA (POCT) Clear [facility] COLOR UA (POCT) Yellow [facility] GLUCOSE UA (POCT) Negative Negative mg/dL [facility] HEMOGLOBIN/BLOOD UA (POCT) Negative Negative [facility] KETONE UA (POCT) Negative Negative mg/dL [facility] LEUKOCYTES UA (POCT) Negative Negative [facility] NITRITE UA (POCT) Negative Negative [facility] PH UA (POCT) 7.0 4.5 - 8.0 [facility] Protein Ql (U) Negative Negative mg/dL [facility] SPECIFIC GRAVITY UA (POCT) 1.020 1.005 - 1.030 [facility] UROBILINOGEN UA (POCT) 0.2 E.U./dL Mulu l E.U./dL [facility] XR CHEST 2V FRONTAL/LATon [facility] XR Chest PA and Lateralon Radiology Study observation (narrative) [facility] Absolute lymphocyte countOrd ered By: Dr. Hilton on 04-27-2022 Lymphocytes Auto (Unsp spec) [#/Vol] 2.08 10*3/uL 0.83-4.51 [facility] Basophil percentageOrdered B y: Dr. Hilton on 04-27-2022 Basophils/100 WBC (Bld) 0.2 % 0-1 W [facility] Chloride [Moles/Vol] 105 mmol/L 98-107 [facility] Eosinophils/100 WBC (Bld) 0.5 % 0-5 [facility] Glucose [Mass/Vol] 100 mg/dL 74-106 [facility] Comment on above: Fasting Glucose resu lt from 100 to 125 mg/dL suggests IMPAIRED HOMEOSTASIS per A.D.A. criteria. Neutrophils (Bld) [#/Vol] 6.8 10*3/uL 2.0-7.7 [facility] Neutrophils/100 WBC (Bld) 70.2 % 47-70 [facility] Potassium [Moles/Vol] 3.7 mmol/L 3.5-5.[address] [facility] Sodium [Moles/Vol] 141 mmol/L 136-145 [facility] WBC (Bld) [#/Vol] 9.7 10*3/uL 4.4-11.0 [facility] Blood erythrocytes count (nu mber/volume)Ordered By: Dr. Hilton on 04-27-2022 RBC (Bld) [#/Vol] 4.03 10*6/uL 4.2-5.4 [facility] Blood hemoglobin measurement (mass/volume)Ordered By: Dr. Hilton on 04-27-2022 Hemoglobin (Bld) [Mass/Vol] 12.1 g/dL 12.0-15.0 [facility] Blood lymphocytes/100 leukoc ytesOrdered By: Dr. Hilton on 04-27-2022 Lymphocytes/100 WBC (Bld) 21.4 % 19-41 [facility] Blood monocytes/100 leukocyt esOrdered By: Dr. Hilton on 04-27-2022 Monocytes/100 WBC (Bld) 7.3 % 0-10 W [facility] Blood platelet mean volumeOr dered By: Dr. Hilton on 04-27-2022 Platelet mean volume (Bld) [Entitic vol] 10.1 fL 6.2-12.0 [facility] Determination of erythrocyte mean corpuscular volume (MCV)Ordered By: Dr. Hilton on 04-27-2022 MCV (RBC) [Entitic vol] 91.8 fL 81-99 W [facility] Hematocrit Auto (Bld) [Volum e fraction]Ordered By: Dr. Hilton on 04-27-2022 Hematocrit (Bld) [Volume fraction] 37.0 % 37-47 [facility] Influenza virus A and B and SARS-CoV-2 (COVID-19) Ag panel - Upper respiratory specimOrdered By: Dr. Hilton on 04-27-2022 SARS-CoV-2 (COVID-19) RNA NANI+probe Ql (Resp) [facility] Laboratory - Chemistry and C hemistry - challengeOrdered By: Dr. Hilton on 04-27-2022 CK [Catalytic activity/Vol] 41 U/L 26-192 [facility] CO2 [Moles/Vol] 30.0 mmol/L 21.0-32.0 [facility] Magnesium [Mass/Vol] 2.1 mg/dL 1.6-2.6 [facility] Natriuretic peptide B (Bld) [Mass/Vol] 336.7 pg/mL 0-100 [facility] Urea nitrogen/Creatinine [Mass ratio] 33.0 mg/mg 10-20 [facility] Laboratory - Hematology and Cell countsOrdered By: Dr. Hilton on 04-27-2022 Erythrocyte distribution width (RBC) [Entitic vol] 44.3 fL 35.1-43.9 [facility] Erythrocyte distribution width (RBC) [Ratio] 13.2 % 11.6-14.6 [facility] Immature granulocytes/100 WBC (Bld) 0.400 % 0.0-0.9 [facility] Comment on above: IG% - Immature Granu locytes (promyelocytes, myelocytes and metamyelocytes) > 1% indicates that a LEFT SHIFT is Present. MCH (RBC) [Entitic mass] 30.0 pg 27.0-32.0 [facility] Nucleated RBC/100 WBC (Bld) [Ratio] 0 % 0-5 [facility] MCHC Auto (RBC) [Mass/Vol]Or dered By: Dr. Hilton on 04-27-2022 MCHC (RBC) [Mass/Vol] 32.7 g/dL 32-[address] [facility] No Panel InformationOrdered By: Dr. Hilton on 04-27-2022 Estimated Creatinine Clearance Calc 37.24 ml/min [facility] Estimated GFR (MDRD) Amer 92 mL/min >60 [facility] Comment on above: GFR Calc Estimated GFR (MDRD) Non-Af Amer 76 mL/min >60 [facility] Comment on above: Non- GFR Calc Troponin I High Sensitivity 7 pg/mL 3.0-54.0 [facility] Comment on above: Please Note: New Debra t Units and Gender Specific Reference Ranges. For more information see Policy Stat Procedure [place] High Sensitivity Troponin (TNIH) and attachments. Platelets bldOrdered By: Dr. Hilton on 04-27-2022 Platelets (Bld) [#/Vol] 307 10*3/uL 150-450 [facility] Serum or plasma calcium michelle urement (mass/volume)Ordered By: Dr. Hilton on 04-27-2022 Calcium [Mass/Vol] 9.0 mg/dL 8.5-10.1 [facility] Serum or plasma creatinine m easurement (mass/volume)Ordered By: Dr. Hilton on 04-27-2022 Creatinine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 [facility] 10-22-2024 08:19-0400 SaO2% (BldA) [Mass fraction] 96 % Dianna Older RADIATOR C[employer] Work Phone: [facility] 10-22-2024 08:19-0400 Systolic blood pressure 128 mm[Hg] Dianna Older RADIATOR C[employer] Work Phone: [facility] 10-15-2024 10:29-0400 Body height 152.[address] Minerva Shaver MD Work Phone: [facility] 10-15-2024 10:29-0400 Body mass index (BMI) [Ratio] 26.4 kg/m2 Dr. Minerva Shaver MD Work Phone: [facility] 10-15-2024 10:29-0400 Body weight 61.[address] Minerva Shaver MD Work Phone: [facility] 10-08-2024 12:22-0400 Body temperature 98.1 [degF] Anuel Cortes MD Work Phone: [facility] 10-08-2024 12:22-0400 Diastolic blood pressure 73 mm[Hg] Anuel Cortes MD Work Phone: [facility] 10-08-2024 12:22-0400 Heart rate 89 /min Anuel Cortes MD Work Phone: [facility] 10-08-2024 12:22-0400 Respiratory rate 18 /min Anuel Cortes MD Work Phone: [facility] 10-08-2024 12:22-0400 SaO2% (BldA) [Mass fraction] 96 % Anuel Cortes MD Work Phone: [facility] 10-08-2024 12:22-0400 Systolic blood pressure 116 mm[Hg] Anuel Cortes MD Work Phone: [facility] 10-08-2024 06:01-0400 Body mass index (BMI) [Ratio] 26.09 kg/m2 Anuel Cortes MD Work Phone: [facility] 10-08-2024 06:01-0400 Body weight 62.64 kg Anuel Cortes MD Work Phone: [facility] Comment on above: standing 10-01-2024 20:00-0400 Body height 154.9 cm Anuel Cortes MD Work Phone: [facility] 09-29-2024 12:27-0400 Body weight 58.[address] Minerva Shaver MD Work Phone: [facility] 09-29-2024 12:26-0400 Body mass index (BMI) [Ratio] 25.4 kg/m2 Dr. Minerva Shaver MD Work Phone: [facility] 08-17-2024 11:00-0400 Body height 154.[address] Minerva Shaver MD Work Phone: [facility] 08-17-2024 11:00-0400 Body mass index (BMI) [Ratio] 26.1 kg/m2 Dr. Minerva Shaver MD Work Phone: [facility] 08-17-2024 11:00-0400 Body weight 62.[address] Minerva Shaver MD Work Phone: [facility] 08-11-2024 08:43-0400 Diastolic blood pressure 78 mm[Hg] Dianna Ballard APRN.[employer] Work Phone: [facility] 08-11-2024 08:43-0400 Heart rate 74 /min Dianna Ballard APRN.[employer] Work Phone: [facility] 08-11-2024 08:43-0400 Respiratory rate 16 /min Dianna Older RADIATOR C[employer] Work Phone: [facility] 08-11-2024 08:43-0400 SaO2% (BldA) [Mass fraction] 96 % Dianna Older RADIATOR [employer] Work Phone: [facility] 08-11-2024 08:43-0400 Systolic blood pressure 138 mm[Hg] Dianna Older RADIATOR [employer] Work Phone: [facility] 08-01-2024 00:00-0400 Body temperature 98 [degF] Dr. Minerva Shaver MD Work Phone: 1(716)057-727557 [place] [address] 08-01-2024 00:00-0400 Diastolic blood pressure 61 mm[Hg] Dr. Minerva Shaver MD Work Phone: 2(018)179-481191 [place] [address] 08-01-2024 00:00-0400 Heart rate 64 /min Dr. Minerva Shaver MD Work Phone: 0(763)080-609957 [place] [address] 08-01-2024 00:00-0400 Respiratory rate 13 /min Dr. Minerva Shaver MD Work Phone: 2(373)116-933291 [place] [address] 08-01-2024 00:00-0400 SaO2% (BldA) [Mass fraction] 97 % Dr. Minerva Shaver MD Work Phone: 5(613)014-552491 [place] [address] 08-01-2024 00:00-0400 Systolic blood pressure 136 mm[Hg] Dr. Minerva Shaver MD Work Phone: 4(051)244-644457 [place] [address] 07-31-2024 22:30-0400 Body height 154.[address] Minerva Shaver MD Work Phone: 6(542)042-081957 [place] [address] 07-31-2024 22:30-0400 Body mass index (BMI) [Ratio] 26 kg/m2 Dr. Minerva Shaver MD Work Phone: 9(615)394-773257 [place] [address] 07-31-2024 22:30-0400 Body weight 62.[address] Minerva Shaver MD Work Phone: 4(471)673-485157 [place] [address] 07-27-2024 09:25-0400 Body mass index (BMI) [Ratio] 25 kg/m2 Dr. Minerva Shaver MD Work Phone: 1(928)288-385757 [place] [address] 07-27-2024 09:25-0400 Body weight 62.[address] Minerva Shaver MD Work Phone: 4(274)159-850857 [place] [address] 07-27-2024 09:25-0400 Diastolic blood pressure 73 mm[Hg] Dr. Minerva Shaver MD Work Phone: 2(624)819-391957 [place] [address] 07-27-2024 09:25-0400 Heart rate 61 /min Dr. Minerva Shaver MD Work Phone: 9(239)892-750091 [place] [address] 07-27-2024 09:25-0400 Respiratory rate 18 /min Dr. Minerva Shaver MD Work Phone: 3(610)670-562391 [place] [address] 07-27-2024 09:25-0400 SaO2% (BldA) [Mass fraction] 6 % Dr. Minerva Shaver MD Work Phone: 5(759)126-556357 [place] [address] 07-27-2024 09:25-0400 Systolic blood pressure 121 mm[Hg] Dr. Minerva Shaver MD Work Phone: [facility] 07-22-2024 09:39-0400 Body mass index (BMI) [Ratio] 25.68 kg/m2 Dianna Older RADIATOR [employer] Work Phone: [facility] 07-22-2024 09:39-0400 Body temperature 97.59 [degF] Dianna Older RADIATOR [employer] Work Phone: [facility] 07-22-2024 09:39-0400 Body weight 61.69 kg Dianna Older RADIATOR C[employer] Work Phone: [facility] 07-22-2024 09:39-0400 Diastolic blood pressure 74 mm[Hg] Dianna Older RADIATOR C[employer] Work Phone: [facility] 07-22-2024 09:39-0400 Heart rate 64 /min Dianna Older RADIATOR [employer] Work Phone: [facility] 07-22-2024 09:39-0400 Respiratory rate 16 /min Dianna Older RADIATOR [employer] Work Phone: [facility] 07-22-2024 09:39-0400 SaO2% (BldA) [Mass fraction] 97 % Dianna Older RADIATOR [employer] Work Phone: [facility] 07-22-2024 09:39-0400 Systolic blood pressure 132 mm[Hg] Dianna Older RADIATOR [employer] Work Phone: [facility] 07-15-2024 13:30-0500 Body mass index (BMI) [Ratio] 25.3 kg/m2 Dianna Older RADIATOR [employer] Work Phone: [facility] 07-15-2024 13:30-0500 Body temperature 97.7 [degF] Dianna Older RADIATOR [employer] Work Phone: [facility] 07-15-2024 13:30-0500 Body weight 60.78 kg Dianna Older RADIATOR [employer] Work Phone: [facility] 07-15-2024 13:30-0500 Diastolic blood pressure 78 mm[Hg] Dianna Older RADIATOR [employer] Work Phone: [facility] 07-15-2024 13:30-0500 Heart rate 76 /min Dianna Older RADIATOR [employer] Work Phone: [facility] 07-15-2024 13:30-0500 Respiratory rate 16 /min Dianna Older RADIATOR C[employer] Work Phone: [facility] 07-15-2024 13:30-0500 SaO2% (BldA) [Mass fraction] 95 % Dianna Older RADIATOR C[employer] Work Phone: [facility] 07-15-2024 13:30-0500 Systolic blood pressure 124 mm[Hg] Dianna Older RADIATOR CORE TESTER.[employer] SORTER Work Phone: [facility] 07-08-2024 09:39-0500 Body mass index (BMI) [Ratio] 25.11 kg/m2 Dianna Older [employer]IATOR [employer]OLT SORTER Work Phone: [facility] 07-08-2024 09:39-0500 Body temperature 97.3 [degF] Dianna Older RADIATOR C[employer] TE[employer]OLT SORTER Work Phone: [facility] 07-08-2024 09:39-0500 Body weight 60.33 kg Dianna Older RADIATOR C[employer] TE[employer]OLT SORTER Work Phone: [facility] 07-08-2024 09:39-0500 Diastolic blood pressure 66 mm[Hg] Dianna Older RADIATOR CORE TE[employer]OLT SORTER Work Phone: [facility] 07-08-2024 09:39-0500 Heart rate 80 /min Dianna Older RADIATOR CORE TE[employer]OLT SORTER Work Phone: [facility] 07-08-2024 09:39-0500 Respiratory rate 16 /min Dianna Older RADIATOR CORE TE[employer].BOLT SORTER Work Phone: [facility] 07-08-2024 09:39-0500 SaO2% (BldA) [Mass fraction] 94 % Dianna Older RADIATOR CORE TESTER.BOLT SORTER Work Phone: [facility] 07-08-2024 09:39-0500 Systolic blood pressure 140 mm[Hg] Dianna Older RADIATOR C[employer] TE[employer]OLT SORTER Work Phone: [facility] 07-05-2024 15:23-0500 Body mass index (BMI) [Ratio] 25.51 kg/m2 Nadir Clutter PA-C Work Phone: [facility] 07-05-2024 15:23-0500 Body temperature 99.3 [degF] Nadir Clutter PA-C Work Phone: [facility] 07-05-2024 15:23-0500 Body weight 61.3 kg Nadir Clutter PA-C Work Phone: [facility] 07-05-2024 15:23-0500 Diastolic blood pressure 70 mm[Hg] Nadir Clutter PA-C Work Phone: [facility] 07-05-2024 15:23-0500 Heart rate 88 /min Nadir Clutter PA-C Work Phone: [facility] 07-05-2024 15:23-0500 Respiratory rate 18 /min Nadir Clutter PA-C Work Phone: [facility] 07-05-2024 15:23-0500 SaO2% (BldA) [Mass fraction] 92 % Nadir Clutter PA-C Work Phone: [facility] 07-05-2024 15:23-0500 Systolic blood pressure 146 mm[Hg] Nadir Pickard PA-C Work Phone: [facility] 06-17-2024 09:58-0500 Body mass index (BMI) [Ratio] 24.73 kg/m2 Laith Montes MD Work Phone: [facility] 06-17-2024 09:58-0500 Body weight 59.42 kg Laith Montes MD Work Phone: [facility] 06-17-2024 09:58-0500 Diastolic blood pressure 70 mm[Hg] Laith Montes MD Work Phone: [facility] 06-17-2024 09:58-0500 Heart rate 62 /min Laith Montes MD Work Phone: [facility] 06-17-2024 09:58-0500 Respiratory rate 16 /min Laith Montes MD Work Phone: [facility] 06-17-2024 09:58-0500 SaO2% (BldA) [Mass fraction] 95 % Laith Montes MD Work Phone: [facility] 06-17-2024 09:58-0500 Systolic blood pressure 138 mm[Hg] Laith Montes MD Work Phone: [facility] 05-27-2024 07:54-0500 Body mass index (BMI) [Ratio] 24.92 kg/m2 Minerva Shaver MD Work Phone: [facility] 05-27-2024 07:54-0500 Body weight 59.88 kg Minerva Shaver MD Work Phone: [facility] 05-26-2024 00:40-0500 Body temperature 98.1 [degF] Dr. Minerva Shaver MD Work Phone: 9(734)239-686591 [place] [address] 05-26-2024 00:40-0500 Diastolic blood pressure 80 mm[Hg] Dr. Minerva Shaver MD Work Phone: 9(813)616-697791 [place] [address] 05-26-2024 00:40-0500 Heart rate 71 /min Dr. Minerva Shaver MD Work Phone: 3(139)699-681191 [place] [address] 05-26-2024 00:40-0500 Respiratory rate 16 /min Dr. Minerva Shaevr MD Work Phone: 3(416)850-806591 [place] [address] 05-26-2024 00:40-0500 SaO2% (BldA) [Mass fraction] 99 % Dr. Minerva Shaver MD Work Phone: 5(090)633-534491 [place] [address] 05-26-2024 00:40-0500 Systolic blood pressure 144 mm[Hg] Dr. Minerva Shaver MD Work Phone: 6(076)117-616691 [place] [address] 05-26-2024 00:09-0500 Inhaled oxygen flow rate 2 L/min Dr. Minerva Shaver MD Work Phone: 7(291)173-993891 [place] [address] 05-25-2024 23:20-0500 Body mass index (BMI) [Ratio] 24.2 kg/m2 Dr. Minerva Shaver MD Work Phone: 4(657)224-651791 [place] [address] 05-25-2024 23:20-0500 Body weight [address] Minerva Shaver MD Work Phone: 8(743)906-302091 [place] [address] 04-28-2024 15:55-0500 Body mass index (BMI) [Ratio] 24.5 kg/m2 Dr. Minerva Shaver MD Work Phone: 9(245)072-862991 [place] [address] 04-28-2024 15:55-0500 Body weight 58.[address] Minerva Shaver MD Work Phone: 3(558)995-402691 [place] [address] 04-28-2024 15:55-0500 Diastolic blood pressure 79 mm[Hg] Dr. Minerva Shaver MD Work Phone: 4(469)942-285491 [place] [address] 04-28-2024 15:55-0500 Heart rate 71 /min Dr. Minerva Shaver MD Work Phone: [facility] 04-28-2024 15:55-0500 Respiratory rate 16 /min Dr. Minerva Shaver MD Work Phone: [facility] 04-28-2024 15:55-0500 Systolic blood pressure 135 mm[Hg] Dr. Minerva Shaver MD Work Phone: [facility] 04-22-2024 14:05-0500 Diastolic blood pressure 95 mm[Hg] Alli Hernandez MD Work Phone: [facility] 04-22-2024 14:05-0500 Heart rate 82 /min Alli Hernandez MD Work Phone: [facility] 04-22-2024 14:05-0500 Respiratory rate 22 /min Alli Hernandez MD Work Phone: [facility] 04-22-2024 14:05-0500 Systolic blood pressure 159 mm[Hg] Alli Hernandez MD Work Phone: [facility] 04-22-2024 14:00-0500 SaO2% (BldA) [Mass fraction] 96 % Alli Hernandez MD Work Phone: [facility] 04-22-2024 10:45-0500 Body temperature 97 [degF] Alli Hernandez MD Work Phone: [facility] 04-22-2024 06:32-0500 Body height 154.9 cm Alli Hernandez MD Work Phone: [facility] 04-22-2024 06:32-0500 Body mass index (BMI) [Ratio] 24.37 kg/m2 Alli Hernandez MD Work Phone: [facility] 04-22-2024 06:32-0500 Body weight 58.51 kg Alli Hernandez MD Work Phone: [facility] 04-21-2024 15:51-0500 Body height 154.9 cm Alli Hernandez MD Work Phone: [facility] 04-21-2024 15:51-0500 Diastolic blood pressure 80 mm[Hg] Alli Hernandez MD Work Phone: [facility] 04-21-2024 15:51-0500 Heart rate 130 /min Alli Hernandez MD Work Phone: [facility] 04-21-2024 15:51-0500 Systolic blood pressure 114 mm[Hg] Alli Hernandez MD Work Phone: [facility] 04-19-2024 08:52-0500 Body mass index (BMI) [Ratio] 24.7 kg/m2 Dr. Minerva Shaver MD Work Phone: 5(593)199-530757 [place] [address] 04-19-2024 08:52-0500 Body weight 59.[address] Minerva Shaver MD Work Phone: 8(169)228-921991 [place] [address] 04-19-2024 08:52-0500 Diastolic blood pressure 69 mm[Hg] Dr. Minerva Shaver MD Work Phone: 6(228)002-239191 [place] [address] 04-19-2024 08:52-0500 Heart rate 62 /min Dr. Minerva Shaver MD Work Phone: 4(173)533-033357 [place] [address] 04-19-2024 08:52-0500 Respiratory rate 18 /min Dr. Minerva Shaver MD Work Phone: 6(996)239-868757 [place] [address] 04-19-2024 08:52-0500 Systolic blood pressure 121 mm[Hg] Dr. Minerva Shaver MD Work Phone: [facility] 04-17-2024 08:06-0500 Body temperature 97.9 [degF] Toña Persaud MD Work Phone: [facility] 04-17-2024 08:06-0500 Diastolic blood pressure 63 mm[Hg] Toña Persaud MD Work Phone: [facility] 04-17-2024 08:06-0500 Heart rate 57 /min Toña Persaud MD Work Phone: [facility] 04-17-2024 08:06-0500 Respiratory rate 16 /min Toña Persaud MD Work Phone: [facility] 04-17-2024 08:06-0500 SaO2% (BldA) [Mass fraction] 96 % Toña Persaud MD Work Phone: [facility] 04-17-2024 08:06-0500 Systolic blood pressure 142 mm[Hg] Toña Persaud MD Work Phone: [facility] 04-17-2024 04:55-0500 Body mass index (BMI) [Ratio] 24.07 kg/m2 Toña Persaud MD Work Phone: [facility] 04-17-2024 04:55-0500 Body weight 57.74 kg Toña Persaud MD Work Phone: [facility] 04-14-2024 09:13-0500 Body height 154.9 cm Toña Persaud MD Work Phone: [facility] 04-12-2024 20:00-0500 Heart rate 123 /min Dr. Minerva Shaver MD Work Phone: [facility] 04-12-2024 20:00-0500 Respiratory rate 18 /min Dr. Minerva Shaver MD Work Phone: [facility] 04-12-2024 20:00-0500 SaO2% (BldA) [Mass fraction] 91 % Dr. Minerva Shaver MD Work Phone: [facility] 04-12-2024 19:45-0500 Diastolic blood pressure 82 mm[Hg] Dr. Minerva Shaver MD Work Phone: 0(706)270-197257 [place] [address] 04-12-2024 19:45-0500 Systolic blood pressure 112 mm[Hg] Dr. Minerva Shaver MD Work Phone: 7(303)099-745291 [place] [address] 04-12-2024 19:27-0500 Body temperature 98.4 [degF] Dr. Minerva Shaver MD Work Phone: 3(073)775-894291 [place] [address] 04-12-2024 10:54-0500 Body mass index (BMI) [Ratio] 25.1 kg/m2 Dr. Minerva Shaver MD Work Phone: 8(316)913-336691 [place] [address] 04-12-2024 10:54-0500 Body weight 60.[address] Minerva Shaver MD Work Phone: 2(960)350-407891 [place] [address] 04-02-2024 10:00-0500 Body height 155 cm Minerva Shaver MD Work Phone: 1(511)960-434050 [place] [address] 04-02-2024 10:00-0500 Body mass index (BMI) [Ratio] 25.06 kg/m2 Minerva Shaver MD Work Phone: 1(393)081-122450 [place] [address] 04-02-2024 10:00-0500 Body weight 60.2 kg Minerva Shaver MD Work Phone: [facility] 04-02-2024 10:00-0500 Diastolic blood pressure 62 mm[Hg] Minerva Shaver MD Work Phone: [facility] 04-02-2024 10:00-0500 Heart rate 96 /min Minerva Shaver MD Work Phone: [facility] 04-02-2024 10:00-0500 SaO2% (BldA) [Mass fraction] 94 % Minerva Shaver MD Work Phone: [facility] 04-02-2024 10:00-0500 Systolic blood pressure 118 mm[Hg] Minerva Shaver MD Work Phone: [facility] 01-01-2024 10:43-0400 Body mass index (BMI) [Ratio] 25.52 kg/m2 Dianna Older RADIATOR CORE TESTER.BOLT SORTER Work Phone: [facility] 01-01-2024 10:43-0400 Body weight 58.97 kg Dianna Older RADIATOR CORE TE[employer].BOLT SORTER Work Phone: [facility] 01-01-2024 10:43-0400 Diastolic blood pressure 80 mm[Hg] Dianna Older RADIATOR CORE TE[employer].BOLT SORTER Work Phone: [facility] 01-01-2024 10:43-0400 Heart rate 108 /min Dianna Older RADIATOR CORE TESTER.BOLT SORTER Work Phone: [facility] 01-01-2024 10:43-0400 Respiratory rate 16 /min Dianna Older RADIATOR CORE TESTER.BOLT SORTER Work Phone: [facility] 01-01-2024 10:43-0400 SaO2% (BldA) [Mass fraction] 96 % Dianna Older RADIATOR CORE TESTER.BOLT SORTER Work Phone: [facility] 01-01-2024 10:43-0400 Systolic blood pressure 104 mm[Hg] Dianna Older RADIATOR CORE TESTER.BOLT SORTER Work Phone: [facility] 12-15-2023 09:22-0400 Body mass index (BMI) [Ratio] 26.11 kg/m2 Laith Montes MD Work Phone: [facility] 12-15-2023 09:22-0400 Body weight 60.33 kg Laith Montes MD Work Phone: [facility] 12-15-2023 09:22-0400 Diastolic blood pressure 64 mm[Hg] Laith Montes MD Work Phone: [facility] 12-15-2023 09:22-0400 Heart rate 102 /min Laith Montes MD Work Phone: [facility] 12-15-2023 09:22-0400 Respiratory rate 12 /min Laith Montes MD Work Phone: [facility] 12-15-2023 09:22-0400 SaO2% (BldA) [Mass fraction] 97 % Laith Montes MD Work Phone: [facility] 12-15-2023 09:22-0400 Systolic blood pressure 100 mm[Hg] Laith Montes MD Work Phone: [facility] 12-15-2023 08:59-0400 Body height 152 cm Pulm Wstr Work Phone: [facility] 12-15-2023 08:59-0400 Body mass index (BMI) [Ratio] 26.11 kg/m2 Pulm Wstr Work Phone: [facility] 12-15-2023 08:59-0400 Body weight 60.33 kg Pulm Wstr Work Phone: [facility] 12-15-2023 08:59-0400 Heart rate 102 /min Pulm Wstr Work Phone: [facility] 12-15-2023 08:59-0400 Respiratory rate 12 /min Pulm Wstr Work Phone: [facility] 12-15-2023 08:59-0400 SaO2% (BldA) [Mass fraction] 97 % Pulm Wstr Work Phone: [facility] 09-29-2023 12:05-0400 Heart rate 99 /min Dianna Older RADIATOR CORE TESTER.BOLT SORTER Work Phone: [facility] 09-29-2023 11:43-0400 Body height 154.9 cm Dianna Older RADIATOR CORE TESTER.BOLT SORTER Work Phone: [facility] 09-29-2023 11:43-0400 Body mass index (BMI) [Ratio] 24.75 kg/m2 Dianna Older RADIATOR CORE TESTER.BOLT SORTER Work Phone: [facility] 09-29-2023 11:43-0400 Body temperature 96.01 [degF] Dianna Older RADIATOR CORE TESTER.BOLT SORTER Work Phone: [facility] 09-29-2023 11:43-0400 Body weight 59.42 kg Dianna Older RADIATOR CORE TESTER.BOLT SORTER Work Phone: [facility] 09-29-2023 11:43-0400 Diastolic blood pressure 70 mm[Hg] Dianna Older RADIATOR CORE TESTER.BOLT SORTER Work Phone: [facility] 09-29-2023 11:43-0400 Respiratory rate 12 /min Dianna Older RADIATOR CORE TESTER.BOLT SORTER Work Phone: [facility] 09-29-2023 11:43-0400 SaO2% (BldA) [Mass fraction] 98 % Dianna Older RADIATOR CORE TESTER.BOLT SORTER Work Phone: [facility] 09-29-2023 11:43-0400 Systolic blood pressure 124 mm[Hg] Dianna Older RADIATOR CORE TESTER.BOLT SORTER Work Phone: [facility] 09-05-2023 18:48-0400 Body temperature 97.9 [degF] Dr. Minerva Shaver Work Phone: [facility] 09-05-2023 18:48-0400 Diastolic blood pressure 88 mm[Hg] Dr. Minerva Shaver Work Phone: [facility] 09-05-2023 18:48-0400 Heart rate 90 /min Dr. Minerva Shaver Work Phone: [facility] 09-05-2023 18:48-0400 Respiratory rate 14 /min Dr. Minerva Shaver Work Phone: [facility] 09-05-2023 18:48-0400 SaO2% (BldA) [Mass fraction] 96 % Dr. Minerva Shaver Work Phone: [facility] 09-05-2023 18:48-0400 Systolic blood pressure 140 mm[Hg] Dr. Minerva Shaver Work Phone: [facility] 09-05-2023 16:48-0400 Body height 155.[address] Minerva Shaver Work Phone: [facility] 09-05-2023 11:00-0400 Body mass index (BMI) [Ratio] 24.94 kg/m2 Katheryn Stokes MD Work Phone: [facility] 09-05-2023 11:00-0400 Body weight 59.88 kg Katheryn Stokes MD Work Phone: [facility] 09-05-2023 11:00-0400 Diastolic blood pressure 80 mm[Hg] Katheryn Stokes MD Work Phone: [facility] 09-05-2023 11:00-0400 Heart rate 64 /min Katheryn Stokes MD Work Phone: [facility] 09-05-2023 11:00-0400 SaO2% (BldA) [Mass fraction] 95 % Katheryn Stokes MD Work Phone: [facility] 09-05-2023 11:00-0400 Systolic blood pressure 126 mm[Hg] Katheryn Stokes MD Work Phone: [facility] 08-18-2023 12:30-0400 Body temperature 96.8 [degF] Katheryn Stokes MD Work Phone: [facility] 08-18-2023 12:30-0400 Diastolic blood pressure 70 mm[Hg] Katheryn Stokes MD Work Phone: [facility] 08-18-2023 12:30-0400 Heart rate 51 /min Katheryn Stokes MD Work Phone: [facility] 08-18-2023 12:30-0400 Respiratory rate 17 /min Katheryn Stokes MD Work Phone: [facility] 08-18-2023 12:30-0400 SaO2% (BldA) [Mass fraction] 96 % Katheryn Stokes MD Work Phone: [facility] 08-18-2023 12:30-0400 Systolic blood pressure 120 mm[Hg] Katheryn Stokes MD Work Phone: [facility] 08-11-2023 10:44-0400 Body mass index (BMI) [Ratio] 25 kg/m2 Dr. Minerva Shaver Work Phone: [facility] 08-11-2023 10:44-0400 Body weight 60.[address] Minerva Shaver Work Phone: [facility] 08-11-2023 10:44-0400 Diastolic blood pressure 78 mm[Hg] Dr. Minerva Shaver Work Phone: 4(625)213-937257 [place] [address] 08-11-2023 10:44-0400 Heart rate 92 /min Dr. Minerva Shaver Work Phone: 2(693)977-786057 [place] [address] 08-11-2023 10:44-0400 Respiratory rate 16 /min Dr. Minerva Shaver Work Phone: 0(805)562-714257 [place] [address] 08-11-2023 10:44-0400 Systolic blood pressure 121 mm[Hg] Dr. Minerva Shaver Work Phone: 5(907)774-792591 [place] [address] 08-05-2023 08:22-0400 Body mass index (BMI) [Ratio] 25.3 kg/m2 Dr. Minerva Shaver Work Phone: 7(625)431-155091 [place] [address] 08-05-2023 08:22-0400 Body weight 60.[address] Minerva Shaver Work Phone: 0(156)351-202191 [place] [address] 07-04-2023 11:17-0500 Body height 154.[address] Minerva Shaver Work Phone: 3(685)166-745091 [place] [address] 07-04-2023 11:17-0500 Body weight 83.[address] Minerva Shaver Work Phone: 2(380)645-019591 [place] [address] 07-03-2023 08:16-0500 Body mass index (BMI) [Ratio] 34.9 kg/m2 Dr. Minerva Shaver Work Phone: 6(116)618-668357 [place] [address] 06-30-2023 11:34-0500 Diastolic blood pressure 78 mm[Hg] Dianna Older RADIATOR CORE TESTER.BOLT SORTER Work Phone: [facility] 06-30-2023 11:34-0500 Systolic blood pressure 128 mm[Hg] Dianna Older RADIATOR CORE TESTER.BOLT SORTER Work Phone: [facility] 03-31-2023 11:39-0500 Body weight 61.24 kg Dianna Older RADIATOR CORE TESTER.BOLT SORTER Work Phone: [facility] 03-31-2023 11:39-0500 Diastolic blood pressure 60 mm[Hg] Dianna Older RADIATOR CORE TESTER.BOLT SORTER Work Phone: [facility] 03-31-2023 11:39-0500 Heart rate 54 /min Dianna Older RADIATOR CORE TESTER.BOLT SORTER Work Phone: [facility] 03-31-2023 11:39-0500 Respiratory rate 16 /min Dianna Older RADIATOR CORE TESTER.BOLT SORTER Work Phone: [facility] 03-31-2023 11:39-0500 SaO2% (BldA) [Mass fraction] 94 % Dianna Older RADIATOR CORE TESTER.BOLT SORTER Work Phone: [facility] 03-31-2023 11:39-0500 Systolic blood pressure 118 mm[Hg] Dianna Older RADIATOR CORE TESTER.BOLT SORTER Work Phone: [facility] 03-04-2023 11:59-0400 Body height 157.5 cm Jennifer Denbow PA-C Work Phone: [facility] 03-04-2023 11:59-0400 Body temperature 97.81 [degF] Jennifer Denbow PA-C Work Phone: [facility] 03-04-2023 11:59-0400 Body weight 63.96 kg Jennifer Denbow PA-C Work Phone: [facility] 03-04-2023 11:59-0400 Diastolic blood pressure 70 mm[Hg] Jennifer Denbow PA-C Work Phone: [facility] 03-04-2023 11:59-0400 Heart rate 61 /min Jennifer Denbow PA-C Work Phone: [facility] 03-04-2023 11:59-0400 Respiratory rate 12 /min Jennifer Denbow PA-C Work Phone: [facility] 03-04-2023 11:59-0400 SaO2% (BldA) [Mass fraction] 96 % Jennifer Denbow PA-C Work Phone: [facility] 03-04-2023 11:59-0400 Systolic blood pressure 138 mm[Hg] Jennifer Rudd PA-C Work Phone: [facility] 02-10-2023 13:26-0400 Body weight 62.6 kg Dianna Older RADIATOR CORE TESTER.BOLT SORTER Work Phone: [facility] 02-10-2023 13:26-0400 Diastolic blood pressure 78 mm[Hg] Dianna Older RADIATOR CORE TESTER.BOLT SORTER Work Phone: [facility] 02-10-2023 13:26-0400 Heart rate 63 /min Dianna Older RADIATOR CORE TESTER.BOLT SORTER Work Phone: [facility] 02-10-2023 13:26-0400 Respiratory rate 16 /min Dianna Older RADIATOR CORE TESTER.BOLT SORTER Work Phone: [facility] 02-10-2023 13:26-0400 SaO2% (BldA) [Mass fraction] 96 % Dianna Older RADIATOR CORE TESTER.BOLT SORTER Work Phone: [facility] 02-10-2023 13:26-0400 Systolic blood pressure 146 mm[Hg] Dianna Older RADIATOR CORE TESTER.BOLT SORTER Work Phone: [facility] 02-04-2023 09:50-0400 Body height 154.[address] Minerva Shaver Work Phone: [facility] 02-04-2023 09:48-0400 Body mass index (BMI) [Ratio] 25.9 kg/m2 Dr. Minerva Shaver Work Phone: [facility] 02-04-2023 09:48-0400 Body weight 62.[address] Minerva Shaver Work Phone: [facility] 02-04-2023 09:48-0400 Diastolic blood pressure 72 mm[Hg] Dr. Minerva Shaver Work Phone: [facility] 02-04-2023 09:48-0400 Heart rate 51 /min Dr. Minerva Shaver Work Phone: [facility] 02-04-2023 09:48-0400 Respiratory rate 18 /min Dr. Minerva Shaver Work Phone: [facility] 02-04-2023 09:48-0400 SaO2% (BldA) [Mass fraction] 96 % Dr. Minerva Shaver Work Phone: [facility] 02-04-2023 09:48-0400 Systolic blood pressure 112 mm[Hg] Dr. Minerva Shaver Work Phone: [facility] 01-28-2023 19:18-0400 Body height 157.5 cm Юлия Oden MD Work Phone: [facility] 01-28-2023 19:18-0400 Body weight 62.14 kg Юлия Oden MD Work Phone: [facility] 01-28-2023 19:18-0400 Diastolic blood pressure 78 mm[Hg] Юлия Oden MD Work Phone: [facility] 01-28-2023 19:18-0400 Heart rate 58 /min Юлия Oden MD Work Phone: [facility] 01-28-2023 19:18-0400 Respiratory rate 16 /min Юлия Oden MD Work Phone: [facility] 01-28-2023 19:18-0400 SaO2% (BldA) [Mass fraction] 94 % Юлия Oden MD Work Phone: [facility] 01-28-2023 19:18-0400 Systolic blood pressure 130 mm[Hg] Юлия Oden MD Work Phone: [facility] 01-27-2023 12:39-0400 Body height 152 cm Laith Montes MD Work Phone: [facility] 01-27-2023 12:39-0400 Body weight 61.69 kg Laith Montes MD Work Phone: [facility] 01-27-2023 12:39-0400 Diastolic blood pressure 78 mm[Hg] Laith Montes MD Work Phone: [facility] 01-27-2023 12:39-0400 Heart rate 58 /min Laith Montes MD Work Phone: [facility] 01-27-2023 12:39-0400 Respiratory rate 14 /min Laith Montes MD Work Phone: [facility] 01-27-2023 12:39-0400 SaO2% (BldA) [Mass fraction] 98 % Laith Montes MD Work Phone: [facility] 01-27-2023 12:39-0400 Systolic blood pressure 130 mm[Hg] Laith Montes MD Work Phone: [facility] 01-23-2023 14:06-0400 Diastolic blood pressure 62 mm[Hg] Dianna Older [employer] Work Phone: [facility] 01-23-2023 14:06-0400 Systolic blood pressure 136 mm[Hg] Dianna Older [employer] Work Phone: [facility] 01-23-2023 14:05-0400 Body temperature 97.2 [degF] Dianna Older [employer] Work Phone: [facility] 01-23-2023 14:05-0400 Body weight 62.14 kg Dianna Older [employer]ATOR [employer] Work Phone: [facility] 01-23-2023 14:05-0400 Heart rate 49 /min Dianna Older [employer] Work Phone: [facility] 01-23-2023 14:05-0400 Respiratory rate 16 /min Dianna Older [employer]ATOR [employer] Work Phone: [facility] 01-23-2023 14:05-0400 SaO2% (BldA) [Mass fraction] 92 % Dianna Older [employer]ATOR [employer] Work Phone: [facility] 01-10-2023 14:45-0400 Body height 157.5 cm Dianna Older [employer]ATOR [employer] Work Phone: [facility] 01-10-2023 14:45-0400 Body weight 63.05 kg Dianna Older [employer]ATOR [employer] Work Phone: [facility] 01-10-2023 14:45-0400 Diastolic blood pressure 62 mm[Hg] Dianna Older [employer]ATOR [employer] Work Phone: [facility] 01-10-2023 14:45-0400 Heart rate 102 /min Dianna Older [employer]ATOR [employer] Work Phone: [facility] 01-10-2023 14:45-0400 Respiratory rate 14 /min Dianna Older [employer]ATOR [employer] Work Phone: [facility] 01-10-2023 14:45-0400 SaO2% (BldA) [Mass fraction] 95 % Dianna Older [employer] Work Phone: [facility] 01-10-2023 14:45-0400 Systolic blood pressure 130 mm[Hg] Dianna Older [employer]ATOR [employer] Work Phone: [facility] 01-03-2023 14:31-0400 Body height 157.5 cm Dianna Older [employer]IATOR [employer] Work Phone: [facility] 01-03-2023 14:31-0400 Body weight 62.14 kg Dianna Older [employer]IATOR [employer] Work Phone: [facility] 01-03-2023 14:31-0400 Diastolic blood pressure 68 mm[Hg] Dianna Older [employer]ATOR [employer] Work Phone: [facility] 01-03-2023 14:31-0400 Heart rate 69 /min Dianna Older [employer]IATOR [employer] Work Phone: [facility] 01-03-2023 14:31-0400 Respiratory rate 18 /min Dianna Older [employer]IATOR [employer] Work Phone: [facility] 01-03-2023 14:31-0400 SaO2% (BldA) [Mass fraction] 92 % Dianna Older [employer] Work Phone: [facility] 01-03-2023 14:31-0400 Systolic blood pressure 130 mm[Hg] Dianna Older [employer]IATOR [employer] Work Phone: [facility] 01-02-2023 13:18-0400 Inhaled oxygen flow rate 2 L/min Dr. Minerva Shaver Work Phone: 3(039)090-335757 [place] [address] 01-02-2023 13:18-0400 SaO2% (BldA) [Mass fraction] 95 % Dr. Minerva Shaver Work Phone: 5(023)262-888891 [place] [address] 01-02-2023 12:19-0400 Heart rate 58 /min Dr. Minerva Shaver Work Phone: 0(839)400-833491 [place] [address] 01-02-2023 12:19-0400 Respiratory rate 14 /min Dr. Minerva Shaver Work Phone: 1(193)307-832691 [place] [address] 01-02-2023 11:04-0400 Body temperature 96.2 [degF] Dr. Minerva Shaver Work Phone: 3(545)720-141391 [place] [address] 01-02-2023 11:04-0400 Diastolic blood pressure 64 mm[Hg] Dr. Minerva Shaver Work Phone: 3(040)038-651591 [place] [address] 01-02-2023 11:04-0400 Systolic blood pressure 108 mm[Hg] Dr. Minerva Shaver Work Phone: 6(282)837-447491 [place] [address] 01-01-2023 14:34-0400 Body height 154.[address] Minerva Shaver Work Phone: 7(479)392-312291 [place] [address] 01-01-2023 14:34-0400 Body weight 63.[address] Minerva Shaver Work Phone: 0(807)043-817091 [place] [address] 01-01-2023 06:00-0400 Body mass index (BMI) [Ratio] 26.4 kg/m2 Dr. Minerva Shaver Work Phone: 6(671)421-171591 [place] [address] 12-31-2022 03:43-0400 Inhaled oxygen concentration 35 % Dr. Minerva Shaver Work Phone: 5(340)871-205491 [place] [address] 12-31-2022 02:32-0400 Body temperature 98.2 [degF] Dr. Minerva Shaver Work Phone: 5(108)250-825891 [place] [address] 12-31-2022 02:32-0400 Diastolic blood pressure 68 mm[Hg] Dr. Minerva Shaver Work Phone: 3(089)664-031757 [place] [address] 12-31-2022 02:32-0400 Heart rate 57 /min Dr. Minerva Shaver Work Phone: 8(400)505-769891 [place] [address] 12-31-2022 02:32-0400 Inhaled oxygen concentration 45 % Dr. Minerva Shaver Work Phone: 2(995)813-716757 [place] [address] 12-31-2022 02:32-0400 Respiratory rate 24 /min Dr. Minerva Shaver Work Phone: 2(579)298-679491 [place] [address] 12-31-2022 02:32-0400 SaO2% (BldA) [Mass fraction] 98 % Dr. Minerva Shaver Work Phone: 8(158)478-398491 [place] [address] 12-31-2022 02:32-0400 Systolic blood pressure 171 mm[Hg] Dr. Minerva Shaver Work Phone: 0(144)686-284191 [place] [address] 12-31-2022 01:21-0400 Body height 154.[address] Minerva Shaver Work Phone: 8(983)542-381691 [place] [address] 12-31-2022 01:21-0400 Body mass index (BMI) [Ratio] 28.3 kg/m2 Dr. Minerva Shaver Work Phone: 8(943)704-213657 [place] [address] 12-31-2022 01:21-0400 Body weight [address] Minerva Shaver Work Phone: 3(488)414-102891 [place] [address] 12-26-2022 12:40-0400 Body temperature 97.3 [degF] Dianna Older [employer]ATOR [employer] Work Phone: 8(028)620-679050 [place] [address] 12-26-2022 12:40-0400 Body weight 62.6 kg Dianna Older [employer]ATOR [employer] Work Phone: [facility] 12-26-2022 12:40-0400 Diastolic blood pressure 80 mm[Hg] Dianna Older [employer] Work Phone: [facility] 12-26-2022 12:40-0400 Heart rate 56 /min Dianna Older [employer]IATOR [employer] Work Phone: [facility] 12-26-2022 12:40-0400 Respiratory rate 16 /min Dianna Older [employer]IATOR [employer] Work Phone: [facility] 12-26-2022 12:40-0400 SaO2% (BldA) [Mass fraction] 96 % Dianna Older [employer]IATOR [employer] Work Phone: [facility] 12-26-2022 12:40-0400 Systolic blood pressure 142 mm[Hg] Dianna Older [employer]IATOR [employer] Work Phone: [facility] 12-12-2022 11:40-0400 Body temperature 98.01 [degF] Dianna Older [employer] Work Phone: [facility] 12-12-2022 11:40-0400 Body weight 64.41 kg Dianna Older [employer]IATOR [employer] Work Phone: [facility] 12-12-2022 11:40-0400 Diastolic blood pressure 72 mm[Hg] Dianna Older [employer]IATOR [employer] Work Phone: [facility] 12-12-2022 11:40-0400 Heart rate 56 /min Dianna Older [employer]IATOR [employer] Work Phone: [facility] 12-12-2022 11:40-0400 Respiratory rate 16 /min Dianna Older [employer]IATOR [employer] Work Phone: [facility] 12-12-2022 11:40-0400 SaO2% (BldA) [Mass fraction] 94 % Dianna Older [employer]IATOR [employer] Work Phone: [facility] 12-12-2022 11:40-0400 Systolic blood pressure 136 mm[Hg] Dianna Older [employer]IATOR [employer] Work Phone: [facility] 10-31-2022 09:04-0400 Body weight 61.69 kg Minerva Shaver MD Work Phone: [facility] 10-31-2022 09:04-0400 Diastolic blood pressure 70 mm[Hg] Minerva Shaver MD Work Phone: [facility] 10-31-2022 09:04-0400 Heart rate 54 /min Minerva Shaver MD Work Phone: [facility] 10-31-2022 09:04-0400 Respiratory rate 16 /min Minerva Shaver MD Work Phone: [facility] 10-31-2022 09:04-0400 SaO2% (BldA) [Mass fraction] 97 % Minerva Shaver MD Work Phone: [facility] 10-31-2022 09:04-0400 Systolic blood pressure 130 mm[Hg] Minerva Shaver MD Work Phone: [facility] 10-03-2022 10:27-0400 Body height 154.[address] Minerva Shaver Work Phone: [facility] 10-03-2022 10:27-0400 Body mass index (BMI) [Ratio] 25.2 kg/m2 Dr. Minerva Shaver Work Phone: 7(219)269-606657 [place] [address] 10-03-2022 10:27-0400 Body weight 60.[address] Minerva Shaver Work Phone: [facility] 10-03-2022 10:27-0400 Diastolic blood pressure 71 mm[Hg] Dr. Minerva Shaver Work Phone: [facility] 10-03-2022 10:27-0400 Heart rate 57 /min Dr. Minerva Shaver Work Phone: [facility] 10-03-2022 10:27-0400 Respiratory rate 16 /min Dr. Minerva Shaver Work Phone: [facility] 10-03-2022 10:27-0400 Systolic blood pressure 131 mm[Hg] Dr. Minerva Shaver Work Phone: [facility] 10-01-2022 10:43-0400 Diastolic blood pressure 66 mm[Hg] Zuleyma Persaud DO Work Phone: [facility] 10-01-2022 10:43-0400 Heart rate 54 /min Zuleyma Persaud DO Work Phone: [facility] 10-01-2022 10:43-0400 SaO2% (BldA) [Mass fraction] 97 % Zuleyma Persaud DO Work Phone: [facility] 10-01-2022 10:43-0400 Systolic blood pressure 140 mm[Hg] Zuleyma Persaud DO Work Phone: [facility] 09-13-2022 10:46-0400 Diastolic blood pressure 53 mm[Hg] Perlita Flowers MD Work Phone: [facility] 09-13-2022 10:46-0400 Heart rate 46 /min Perlita Flowers MD Work Phone: [facility] 09-13-2022 10:46-0400 Respiratory rate 16 /min Perlita Flowers MD Work Phone: [facility] 09-13-2022 10:46-0400 SaO2% (BldA) [Mass fraction] 96 % Perlita Flowers MD Work Phone: [facility] 09-13-2022 10:46-0400 Systolic blood pressure 180 mm[Hg] Perlita Flowers MD Work Phone: [facility] 09-03-2022 10:30-0400 Body height 157.5 cm Zuleyma Persaud DO Work Phone: [facility] 09-03-2022 10:30-0400 Body weight 60.33 kg Zuleyma Persaud DO Work Phone: [facility] 09-03-2022 10:30-0400 Diastolic blood pressure 62 mm[Hg] Zuleyma Persaud DO Work Phone: [facility] 09-03-2022 10:30-0400 Heart rate 62 /min Zuleyma Persaud DO Work Phone: [facility] 09-03-2022 10:30-0400 SaO2% (BldA) [Mass fraction] 96 % Zuleyma Persaud DO Work Phone: [facility] 09-03-2022 10:30-0400 Systolic blood pressure 118 mm[Hg] Zuleyma Persaud DO Work Phone: [facility] 08-29-2022 08:17-0400 Body temperature 97.59 [degF] Minerva Shaver MD Work Phone: [facility] 08-29-2022 08:17-0400 Body weight 60.78 kg Minerva Shaver MD Work Phone: [facility] 08-29-2022 08:17-0400 Diastolic blood pressure 60 mm[Hg] Minerva Shaver MD Work Phone: [facility] 08-29-2022 08:17-0400 Heart rate 60 /min Minerva Shaver MD Work Phone: [facility] 08-29-2022 08:17-0400 Respiratory rate 16 /min Minerva Shaver MD Work Phone: [facility] 08-29-2022 08:17-0400 SaO2% (BldA) [Mass fraction] 99 % Minerva Shaver MD Work Phone: [facility] 08-29-2022 08:17-0400 Systolic blood pressure 116 mm[Hg] Minerva Shaver MD Work Phone: [facility] 08-27-2022 10:21-0400 Body height 154.[address] Minerva Shaver Work Phone: [facility] 08-27-2022 10:21-0400 Body mass index (BMI) [Ratio] 25.7 kg/m2 Dr. Minerva Shaver Work Phone: [facility] 08-27-2022 10:21-0400 Body weight 61.[address] Minerva Shaver Work Phone: [facility] 08-27-2022 10:21-0400 Diastolic blood pressure 81 mm[Hg] Dr. Minerva Shaver Work Phone: [facility] 08-27-2022 10:21-0400 Heart rate 85 /min Dr. Minerva Shaver Work Phone: 3(151)697-423591 [place] [address] 08-27-2022 10:21-0400 Respiratory rate 18 /min Dr. Minerva Shaver Work Phone: 1(878)637-594391 [place] [address] 08-27-2022 10:21-0400 SaO2% (BldA) [Mass fraction] 96 % Dr. Minerva Shaver Work Phone: 7(589)144-092091 [place] [address] 08-27-2022 10:21-0400 Systolic blood pressure 117 mm[Hg] Dr. Minerva Shaver Work Phone: 5(622)766-206291 [place] [address] 08-11-2022 11:41-0400 Body mass index (BMI) [Ratio] 25.5 kg/m2 Dr. Minerva Shaver Work Phone: 8(591)149-368191 [place] [address] 08-11-2022 09:20-0400 Body temperature 97.9 [degF] Dr. Minerva Shaver Work Phone: 3(843)673-741491 [place] [address] 08-11-2022 09:20-0400 Diastolic blood pressure 65 mm[Hg] Dr. Minerva Shaver Work Phone: 4(976)518-178191 [place] [address] 08-11-2022 09:20-0400 Heart rate 63 /min Dr. Minerva Shaver Work Phone: 8(030)231-077691 [place] [address] 08-11-2022 09:20-0400 Respiratory rate 16 /min Dr. Minerva Shaver Work Phone: 3(430)532-239391 [place] [address] 08-11-2022 09:20-0400 SaO2% (BldA) [Mass fraction] 96 % Dr. Minerva Shaver Work Phone: 8(123)260-738691 [place] [address] 08-11-2022 09:20-0400 Systolic blood pressure 159 mm[Hg] Dr. Minerva Shaver Work Phone: 5(814)267-702291 [place] [address] 08-11-2022 03:20-0400 Body temperature 97.9 [degF] Dr. Minerva Shaver Work Phone: 2(460)348-972591 [place] [address] 08-11-2022 03:20-0400 Diastolic blood pressure 62 mm[Hg] Dr. Minerva Shaver Work Phone: 9(069)251-659891 [place] [address] 08-11-2022 03:20-0400 Heart rate 58 /min Dr. Minerva Shaver Work Phone: 6(554)090-111691 [place] [address] 08-11-2022 03:20-0400 Respiratory rate 16 /min Dr. Minerva Shaver Work Phone: 5(725)268-925991 [place] [address] 08-11-2022 03:20-0400 SaO2% (BldA) [Mass fraction] 96 % Dr. Minerva Shaver Work Phone: 7(531)247-254491 [place] [address] 08-11-2022 03:20-0400 Systolic blood pressure 141 mm[Hg] Dr. Minerva Shaver Work Phone: 3(204)104-869291 [place] [address] 08-10-2022 22:04-0400 Body mass index (BMI) [Ratio] 25.5 kg/m2 Dr. Minerva Shaver Work Phone: 7(533)332-704291 [place] [address] 08-10-2022 08:33-0400 Body temperature 98.5 [degF] Dr. Minerva Shaver Work Phone: 3(021)076-912691 [place] [address] 08-10-2022 08:33-0400 Diastolic blood pressure 54 mm[Hg] Dr. Minerva Shaver Work Phone: 3(652)283-984791 [place] [address] 08-10-2022 08:33-0400 Heart rate 50 /min Dr. Minerva Shaver Work Phone: 0(024)250-369391 [place] [address] 08-10-2022 08:33-0400 Respiratory rate 16 /min Dr. Minerva Shaver Work Phone: 0(265)884-984591 [place] [address] 08-10-2022 08:33-0400 SaO2% (BldA) [Mass fraction] 95 % Dr. Minerva Shaver Work Phone: 6(093)018-974191 [place] [address] 08-10-2022 08:33-0400 Systolic blood pressure 152 mm[Hg] Dr. Minerva Shaver Work Phone: 3(882)232-826891 [place] [address] 08-10-2022 02:30-0400 Inhaled oxygen flow rate 2 L/min Dr. Minerva Shaver Work Phone: 6(777)433-604991 [place] [address] 08-10-2022 00:47-0400 Body mass index (BMI) [Ratio] 25.5 kg/m2 Dr. Minerva Shaver Work Phone: 8(067)670-357191 [place] [address] 08-09-2022 09:56-0400 Body height 154.[address] Minerva Shaver Work Phone: 2(438)855-679191 [place] [address] 08-09-2022 09:56-0400 Body weight 61.[address] Minerva Shaver Work Phone: 0(249)677-270991 [place] [address] 08-08-2022 17:39-0400 Body temperature 98.3 [degF] Dr. Minerva Shaver Work Phone: 7(210)644-668691 [place] [address] 08-08-2022 17:39-0400 Diastolic blood pressure 78 mm[Hg] Dr. Minerva Shaver Work Phone: 7(018)974-030591 [place] [address] 08-08-2022 17:39-0400 Heart rate 49 /min Dr. Minerva Shaver Work Phone: 4(194)481-740091 [place] [address] 08-08-2022 17:39-0400 Respiratory rate 19 /min Dr. Minerva Shaver Work Phone: 0(834)218-781491 [place] [address] 08-08-2022 17:39-0400 SaO2% (BldA) [Mass fraction] 96 % Dr. Minerva Shaver Work Phone: 3(160)059-329991 [place] [address] 08-08-2022 17:39-0400 Systolic blood pressure 153 mm[Hg] Dr. Minerva Shaver Work Phone: 9(494)596-573091 [place] [address] 08-08-2022 16:20-0400 Body height 154.[address] Minerva Shaver Work Phone: 6(906)137-851891 [place] [address] 08-08-2022 16:20-0400 Body mass index (BMI) [Ratio] 25.6 kg/m2 Dr. Minerva Shaver Work Phone: 2(186)665-825191 [place] [address] 08-08-2022 16:20-0400 Body weight 61.[address] Minerva Shaver Work Phone: [facility] 08-02-2022 08:04-0400 Body weight 61.[address] Minerva Shaver Work Phone: [facility] 08-02-2022 08:02-0400 Body mass index (BMI) [Ratio] 25.4 kg/m2 Dr. Minerva Shaver Work Phone: [facility] 07-25-2022 15:40-0400 Body height 154.[address] Minerva Shaver Work Phone: 9(079)553-249091 [place] [address] 07-25-2022 15:40-0400 Body mass index (BMI) [Ratio] 25.4 kg/m2 Dr. Minerva Shaver Work Phone: 1(386)775-588957 [place] [address] 07-25-2022 15:40-0400 Body weight 61.[address] Minerva Shaver Work Phone: 9(928)166-135557 [place] [address] 07-25-2022 15:40-0400 Diastolic blood pressure 69 mm[Hg] Dr. Minerva Shaver Work Phone: 0(118)226-865057 [place] [address] 07-25-2022 15:40-0400 Heart rate 70 /min Dr. Minerva Shaver Work Phone: [facility] 07-25-2022 15:40-0400 Respiratory rate 16 /min Dr. Minerva Shaver Work Phone: [facility] 07-25-2022 15:40-0400 Systolic blood pressure 104 mm[Hg] Dr. Minerva Shaver Work Phone: [facility] 07-18-2022 10:34-0500 Body temperature 97.11 [degF] Katheryn Stokes MD Work Phone: [facility] 07-18-2022 10:34-0500 Diastolic blood pressure 78 mm[Hg] Katheryn Stokes MD Work Phone: [facility] 07-18-2022 10:34-0500 Heart rate 121 /min Katheryn Stokes MD Work Phone: [facility] 07-18-2022 10:34-0500 SaO2% (BldA) [Mass fraction] 95 % Katheryn Stokes MD Work Phone: [facility] 07-18-2022 10:34-0500 Systolic blood pressure 118 mm[Hg] Katheryn Stokes MD Work Phone: [facility] 06-18-2022 14:41-0500 Body height 157.5 cm Minerva Shaver MD Work Phone: [facility] 06-18-2022 14:41-0500 Body temperature 97.5 [degF] Minerva Shaver MD Work Phone: [facility] 06-18-2022 14:41-0500 Body weight 61.69 kg Minerva Shaver MD Work Phone: [facility] 06-18-2022 14:41-0500 Diastolic blood pressure 60 mm[Hg] Minerva Shaver MD Work Phone: [facility] 06-18-2022 14:41-0500 Heart rate 53 /min Minerva Shaver MD Work Phone: [facility] 06-18-2022 14:41-0500 Respiratory rate 12 /min Minerva Shaver MD Work Phone: [facility] 06-18-2022 14:41-0500 SaO2% (BldA) [Mass fraction] 95 % Minerva Shaver MD Work Phone: [facility] 06-18-2022 14:41-0500 Systolic blood pressure 132 mm[Hg] Minerva Shaver MD Work Phone: [facility] 06-08-2022 10:17-0500 Body temperature 97.81 [degF] Minerva Shaver MD Work Phone: [facility] 06-08-2022 10:17-0500 Body weight 61.24 kg Minerva Shaver MD Work Phone: [facility] 06-08-2022 10:17-0500 Diastolic blood pressure 68 mm[Hg] Minerva Shaver MD Work Phone: [facility] 06-08-2022 10:17-0500 Heart rate 56 /min Minerva Shaver MD Work Phone: [facility] 06-08-2022 10:17-0500 SaO2% (BldA) [Mass fraction] 96 % Minerva Shaver MD Work Phone: [facility] 06-08-2022 10:17-0500 Systolic blood pressure 158 mm[Hg] Minerva Shaver MD Work Phone: [facility] 05-23-2022 14:10-0500 Body height 157.5 cm Katheryn Stokes MD Work Phone: [facility] 05-23-2022 14:10-0500 Body temperature 97.9 [degF] Katheryn Stokes MD Work Phone: [facility] 05-23-2022 14:10-0500 Body weight 61.51 kg Katheryn Stokes MD Work Phone: [facility] 05-23-2022 14:10-0500 Diastolic blood pressure 72 mm[Hg] Katheryn Stokes MD Work Phone: [facility] 05-23-2022 14:10-0500 Heart rate 62 /min Katheryn Stokes MD Work Phone: [facility] 05-23-2022 14:10-0500 SaO2% (BldA) [Mass fraction] 95 % Katheryn Stokes MD Work Phone: [facility] 05-23-2022 14:10-0500 Systolic blood pressure 124 mm[Hg] Katheryn Stokes MD Work Phone: [facility] 05-22-2022 13:55-0500 Diastolic blood pressure 70 mm[Hg] Dianna Older RADIATOR CORE TESTER.BOLT SORTER Work Phone: [facility] 05-22-2022 13:55-0500 Systolic blood pressure 129 mm[Hg] Dianna Older RADIATOR CORE TESTER.BOLT SORTER Work Phone: [facility] 05-22-2022 13:01-0500 Body temperature 97.81 [degF] Dianna Older RADIATOR CORE TESTER.BOLT SORTER Work Phone: [facility] 05-22-2022 13:01-0500 Body weight 60.78 kg Dianna Older RADIATOR CORE TESTER.BOLT SORTER Work Phone: [facility] 05-22-2022 13:01-0500 Heart rate 56 /min Dianna Older RADIATOR CORE TESTER.BOLT SORTER Work Phone: [facility] 05-22-2022 13:01-0500 Respiratory rate 16 /min Dianna Older RADIATOR CORE TESTER.BOLT SORTER Work Phone: [facility] 05-22-2022 13:01-0500 SaO2% (BldA) [Mass fraction] 99 % Dianna Older RADIATOR CORE TESTER.BOLT SORTER Work Phone: [facility] 05-15-2022 11:38-0500 Body temperature 97.59 [degF] Dianna Older RADIATOR CORE TESTER.BOLT SORTER Work Phone: [facility] 05-15-2022 11:38-0500 Body weight 61.24 kg Dianna Older RADIATOR CORE TESTER.BOLT SORTER Work Phone: [facility] 05-15-2022 11:38-0500 Diastolic blood pressure 70 mm[Hg] Dianna Older RADIATOR CORE TESTER.BOLT SORTER Work Phone: [facility] 05-15-2022 11:38-0500 Heart rate 53 /min Dianna Older RADIATOR CORE TESTER.BOLT SORTER Work Phone: [facility] 05-15-2022 11:38-0500 Respiratory rate 16 /min Dianna Older RADIATOR CORE TESTER.BOLT SORTER Work Phone: [facility] 05-15-2022 11:38-0500 SaO2% (BldA) [Mass fraction] 95 % Dianna Older RADIATOR CORE TESTER.BOLT SORTER Work Phone: [facility] 05-15-2022 11:38-0500 Systolic blood pressure 152 mm[Hg] Dianna Older RADIATOR CORE TESTER.BOLT SORTER Work Phone: [facility] 04-29-2022 14:04-0500 Body temperature 99.81 [degF] Hodan Rodney RADIATOR CORE TESTER.BOLT SORTER Work Phone: [facility] 04-29-2022 14:04-0500 Body weight 59.88 kg Hodan Rodney RADIATOR CORE TESTER.BOLT SORTER Work Phone: [facility] 04-29-2022 14:04-0500 Diastolic blood pressure 64 mm[Hg] Hodan Rodney RADIATOR CORE TESTER.BOLT SORTER Work Phone: [facility] 04-29-2022 14:04-0500 Heart rate 77 /min Hodan Rodney RADIATOR CORE TESTER.BOLT SORTER Work Phone: [facility] 04-29-2022 14:04-0500 Respiratory rate 28 /min Hodan Rodney RADIATOR CORE TESTER.BOLT SORTER Work Phone: [facility] 04-29-2022 14:04-0500 SaO2% (BldA) [Mass fraction] 97 % Hodan Rodney RADIATOR CORE TESTER.BOLT SORTER Work Phone: [facility] 04-29-2022 14:04-0500 Systolic blood pressure 120 mm[Hg] Hodan Rodney RADIATOR CORE TESTER.BOLT SORTER Work Phone: [facility] 04-27-2022 17:44-0500 Diastolic blood pressure 65 mm[Hg] Dr. Minerva Shaver Work Phone: [facility] 04-27-2022 17:44-0500 Heart rate 55 /min Dr. Minerva Shaver Work Phone: [facility] 04-27-2022 17:44-0500 Respiratory rate 21 /min Dr. Minerva Shaver Work Phone: [facility] 04-27-2022 17:44-0500 Systolic blood pressure 155 mm[Hg] Dr. Minerva Shaver Work Phone: [facility] 04-27-2022 16:14-0500 SaO2% (BldA) [Mass fraction] 95 % Dr. Minerva Shaver Work Phone: [facility] 04-27-2022 12:22-0500 Body height 154.[address] Minerva Shaver Work Phone: [facility] 04-27-2022 12:22-0500 Body mass index (BMI) [Ratio] 25.1 kg/m2 Dr. Minerva Shaver Work Phone: [facility] 04-27-2022 12:22-0500 Body temperature 97.3 [degF] Dr. Minerva Shaver Work Phone: [facility] 04-27-2022 12:22-0500 Body weight 60.[address] Minerva Shaver Work Phone: [facility] 03-18-2022 13:56-0500 Body temperature 97.59 [degF] Dianna Older RADIATOR CORE TESTER.BOLT SORTER Work Phone: [facility] 03-18-2022 13:56-0500 Body weight 60.78 kg Dianna Older RADIATOR CORE TESTER.BOLT SORTER Work Phone: [facility] 03-18-2022 13:56-0500 Diastolic blood pressure 66 mm[Hg] Dianna Older RADIATOR CORE TESTER.BOLT SORTER Work Phone: [facility] 03-18-2022 13:56-0500 Heart rate 66 /min Dianna Older RADIATOR CORE TESTER.BOLT SORTER Work Phone: [facility] 03-18-2022 13:56-0500 Respiratory rate 16 /min Dianna Older RADIATOR CORE TESTER.BOLT SORTER Work Phone: [facility] 03-18-2022 13:56-0500 SaO2% (BldA) [Mass fraction] 96 % Dianna Older RADIATOR CORE TESTER.BOLT SORTER Work Phone: [facility] 03-18-2022 13:56-0500 Systolic blood pressure 132 mm[Hg] Dianna Older RADIATOR CORE TESTER.BOLT SORTER Work Phone: [facility] 03-06-2022 17:01-0400 SaO2% (BldA) [Mass fraction] 93 % Dr. Minerva Shaver Work Phone: [facility] Work Phone: 03-06-2022 16:18-0400 Body height 154.[address] Minerva Shaver Work Phone: [facility] Work Phone: 03-06-2022 16:18-0400 Body mass index (BMI) [Ratio] 25.3 kg/m2 Dr. Minerva Shaver Work Phone: [facility] Work Phone: 03-06-2022 16:18-0400 Body temperature 97.3 [degF] Dr. Minerva Shaver Work Phone: [facility] Work Phone: 03-06-2022 16:18-0400 Body weight 60.[address] Minerva Shaver Work Phone: [facility] Work Phone: 03-06-2022 16:18-0400 Diastolic blood pressure 72 mm[Hg] Dr. Minerva Shaver Work Phone: [facility] Work Phone: 03-06-2022 16:18-0400 Heart rate 71 /min Dr. Minerva Shaver Work Phone: [facility] Work Phone: 03-06-2022 16:18-0400 Respiratory rate 22 /min Dr. Minerva Shaver Work Phone: [facility] Work Phone: 03-06-2022 16:18-0400 Systolic blood pressure 130 mm[Hg] Dr. Minerva Shaver Work Phone: [facility] Work Phone: 02-22-2022 14:30-0400 Body temperature 97.3 [degF] Minerva Shaver MD Work Phone: [facility] 02-22-2022 14:30-0400 Body weight 59.42 kg Minerva Shaver MD Work Phone: [facility] 02-22-2022 14:30-0400 Diastolic blood pressure 78 mm[Hg] Minerva Shaver MD Work Phone: [facility] 02-22-2022 14:30-0400 Heart rate 60 /min Minerva Shaver MD Work Phone: [facility] 02-22-2022 14:30-0400 Respiratory rate 16 /min Minerva Shaver MD Work Phone: [facility] 02-22-2022 14:30-0400 SaO2% (BldA) [Mass fraction] 96 % Minerva Shaver MD Work Phone: [facility] 02-22-2022 14:30-0400 Systolic blood pressure 124 mm[Hg] Minerva Shaver MD Work Phone: [facility] 01-21-2022 12:03-0400 Body weight 58.97 kg Minerva Shaver MD Work Phone: [facility] 01-21-2022 12:03-0400 Diastolic blood pressure 68 mm[Hg] Minerva Shaver MD Work Phone: [facility] 01-21-2022 12:03-0400 Heart rate 56 /min Minerva Shaver MD Work Phone: [facility] 01-21-2022 12:03-0400 Respiratory rate 16 /min Minerva Shaver MD Work Phone: [facility] 01-21-2022 12:03-0400 Systolic blood pressure 138 mm[Hg] Minerva Shaver MD Work Phone: [facility] 12-24-2021 08:03-0400 Body height 154.9 cm Pacc 1 Work Phone: [facility] 12-24-2021 08:03-0400 Body temperature 97.11 [degF] Pacc 1 Work Phone: [facility] 12-24-2021 08:03-0400 Body weight 60.78 kg Pacc 1 Work Phone: [facility] 12-24-2021 08:03-0400 Diastolic blood pressure 64 mm[Hg] Pacc 1 Work Phone: [facility] 12-24-2021 08:03-0400 Heart rate 58 /min Pacc 1 Work Phone: [facility] 12-24-2021 08:03-0400 Respiratory rate 16 /min Pacc 1 Work Phone: [facility] 12-24-2021 08:03-0400 SaO2% (BldA) [Mass fraction] 97 % Pacc 1 Work Phone: [facility] 12-24-2021 08:03-0400 Systolic blood pressure 126 mm[Hg] Pacc 1 Work Phone: [facility] 12-21-2021 10:21-0400 Body height 154.[address] Minerva Shaver Work Phone: [facility] Work Phone: 12-21-2021 10:20-0400 Body mass index (BMI) [Ratio] 25.3 kg/m2 Dr. Minerva Shaver Work Phone: [facility] Work Phone: 12-21-2021 10:20-0400 Body weight 60.[address] Minerva Shaver Work Phone: [facility] Work Phone: 12-21-2021 10:20-0400 Diastolic blood pressure 71 mm[Hg] Dr. Minerva Shaver Work Phone: [facility] Work Phone: 12-21-2021 10:20-0400 Heart rate 53 /min Dr. Minerva Shaver Work Phone: [facility] Work Phone: 12-21-2021 10:20-0400 Respiratory rate 18 /min Dr. Minerva Shaver Work Phone: [facility] Work Phone: 12-21-2021 10:20-0400 SaO2% (BldA) [Mass fraction] 94 % Dr. Minerva Shaver Work Phone: [facility] Work Phone: 12-21-2021 10:20-0400 Systolic blood pressure 141 mm[Hg] Dr. Minerva Shaver Work Phone: [facility] Work Phone: 09-21-2021 11:39-0400 Body weight 59.42 kg Lindsay Zee MD Work Phone: [facility] 09-21-2021 11:39-0400 Diastolic blood pressure 68 mm[Hg] Lindsay Zee MD Work Phone: [facility] 09-21-2021 11:39-0400 Systolic blood pressure 136 mm[Hg] Lindsay Zee MD Work Phone: [facility] Encounters Encounter Date Encounter Type Care Provider Facility Start: 02-23-2025 End: 02-23-2025 ambulatory [facility] Facility:[facility] Start: 02-21-2025 End: 02-21-2025 ambulatory [facility] Facility:[facility] Start: 02-05-2025 End: 02-05-2025 ambulatory [facility] Facility:[facility] Start: 01-28-2025 ambulatory [facility] Facility:[facility] Start: 01-27-2025 End: 01-27-2025 ambulatory [facility] Facility:[facility] Start: 01-27-2025 End: 01-27-2025 Patient encounter procedure Nagi HAGAN -[facility] Work Phone: Start: 01-27-2025 End: 01-27-[address] Minerva Shaver MD Work Phone: -[facility] Start: 01-26-2025 End: 01-26-2025 ambulatory [facility] Facility:[facility] Start: 01-26-2025 End: 01-26-2025 ambulatory [facility] Facility:[facility] Start: 01-26-2025 End: 01-26-[address] Maxim Ibarra MD -[facility] Start: 01-26-2025 End: 01-26-[address] Minerva Shaver MD Work Phone: -[facility] Start: 01-25-2025 End: 01-25-[address] Minerva Shaver MD Work Phone: -[facility] Start: 01-25-2025 End: 01-25-2025 Patient encounter procedure Cande Rasmussen -[facility] Work Phone: Start: 01-12-2025 End: 01-13-2025 Follow-up encounter Dianna Older RADIATOR CORE TESTER.BOLT SORTER Work Phone: [facility] [place] Start: 01-07-2025 End: 01-07-2025 Office outpatient visit 25 minutes Dianna Older RADIATOR CORE TESTER.BOLT SORTER Work Phone: [facility] Comment on above: Urinary tract infect ion with hematuria, site unspecified (Primary Dx); Depressive disorder; Other fatigue; Congestive heart failure, unspecified HF chronicity, unspecified heart failure type (HCC); Primary hypertension Start: 01-07-2025 End: 01-07-2025 ambulatory [facility] Facility:[facility] Start: 01-05-2025 End: 01-05-[address] Minerva Shaver MD Work Phone: -[facility] Start: 01-05-2025 End: 01-05-[address] Maxim Ibarra MD -[facility] Work Phone: Start: 12-10-2024 End: 12-13-2024 Follow-up encounter Dianna Older RADIATOR CORE TESTER.BOLT SORTER Work Phone: [facility] [place] Start: 12-10-2024 End: 12-10-2024 ambulatory [facility] Facility:[facility] Start: 12-10-2024 End: 12-10-2024 ambulatory [facility] Facility:[facility] Start: 12-10-2024 End: 12-10-2024 Office outpatient visit 25 minutes Dianna Older RADIATOR CORE TESTER.BOLT SORTER Work Phone: [facility] [place] Comment on above: Edema of right lower extremity (Primary Dx); Other fatigue; Foul smelling urine; Depressive disorder; Presence of cardiac pacemaker Start: 12-10-2024 End: 12-10-2024 ambulatory MINERVA SHAVER Facility:[facility] Start: 12-03-2024 End: 12-03-2024 ambulatory Minerva Shaver MD Work Phone: [facility] Start: 12-03-2024 End: 12-03-2024 Patient encounter procedure Minerva Shaver MD Work Phone: [facility] Comment on above: Population Health Na vigation Outreach ([employer] [place] ) Start: 11-17-2024 End: 11-17-[address] Minerva Shaver MD Work Phone: [facility] Start: 11-17-2024 End: 11-17-2024 Patient encounter procedure Cande Rasmussen -[facility] Work Phone: Start: 11-15-2024 End: 01-15-2025 Follow-up encounter Dianna Ballard APRN.CNP Work Phone: [facility] Start: 11-09-2024 End: 11-09-[address] Dragan Fink MD -[facility] Work Phone: Start: 11-09-2024 End: 11-09-[address] Minerva Shaver MD Work Phone: -[facility] Start: 11-03-2024 End: 11-03-2024 ambulatory Minerva Shaver MD Work Phone: [facility] Start: 11-03-2024 End: 11-03-2024 Patient encounter procedure Minerva Shaver MD Work Phone: [facility] Comment on above: Population Health Na vigation Outreach ([facility] ) Start: 11-01-2024 End: 11-01-2024 Patient Outreach Job Oliver RN Coding Team Lead Management Comment on above: Weekly phone contact (Recurring) for Transitional Care Management Start: 10-27-2024 ambulatory Jovanni Schofield Facility :[facility] Start: 10-25-2024 ambulatory Dragan Aleks Facility:[facility] Start: 10-25-2024 Non-patient / Non-visit Dr. Dragan lebron MD -[facility] Start: 10-25-2024 End: 10-25-2024 Admission to same day surgery center Dr. Dragan Fink MD -[facility] Start: 10-25-2024 End: 10-25-[address] Minerva Shaver MD Work Phone: [facility] Work Phone: Start: 10-22-2024 End: 10-22-2024 Office outpatient visit 25 minutes Dianna Ballard APRN.CNP Work Phone: [facility] [place] Comment on above: History of recent ho spitalization (Primary Dx); Presence of cardiac pacemaker; Paroxysmal atrial fibrillation (HCC); Urinary tract infection without hematuria, site unspecified; Candidiasis of mouth; Benign paroxysmal vertigo, unspecified laterality; Dependent edema; Dyspnea, unspecified type Start: 10-22-2024 End: 10-22-2024 ambulatory MINERVA SHAVER Facility:[facility] Start: 10-20-2024 End: 10-21-2024 Refill Dianna Ballard APRN.BOLT SORTER Work Phone: [facility] [place] Comment on above: Refill Request Start: 10-18-2024 End: 10-18-2024 Patient Outreach Myaa Velazquez RN Work Phone: Coding Team Lead Management Comment on above: Weekly phone contact (Recurring) for Transitional Care Management Start: 10-15-2024 End: 10-15-[address] Dragan Fink MD -[facility] Work Phone: Start: 10-15-2024 End: 10-15-[address] Minerva Shaver MD Work Phone: [facility] Work Phone: Start: 10-14-2024 End: 10-14-2024 ambulatory Laith Montes MD Work Phone: Pulmonary Medicine Comment on above: Received Outside Med ical Records Start: 10-14-2024 End: 10-14-2024 Patient encounter procedure Cande Rasmussen -[facility] Work Phone: Start: 10-11-2024 End: 10-11-2024 Patient Outreach Maya Velazquez RN Work Phone: Coding Team Lead Management Comment on above: Initial phone contac t for Transitional Care Management Start: 10-08-2024 End: 10-08-[address] Minerva Shaver MD Work Phone: [facility] Work Phone: Start: 10-08-2024 End: 10-08-[address] Maxim Ibarra MD -[facility] Work Phone: Start: 10-08-2024 End: 10-08-2024 ambulatory [facility] Facility:[facility] Start: 10-05-2024 End: 10-08-2024 ambulatory Minerva Shaver MD Work Phone: Internal Medicine [place] [phone] Start: 10-01-2024 End: 10-08-2024 Evaluation and management of inpatient Anuel Cortes MD Work Phone: [phone] Comment on above: Atrial fibrillation with RVR Start: 09-30-2024 ambulatory [facility] Facility:[facility] Start: 09-30-2024 Non-patient / Non-visit Dr. Erika HICKS -[facility] Start: 09-30-2024 End: 09-30-2024 Admission to same day surgery center Dr. Maxim Ibarra MD -Electronic Science Teacher/Special Procedures Work Phone: Start: 09-30-2024 End: 09-30-2024 ambulatory [facility] Facility:[facility] Start: 09-29-2024 End: 09-29-2024 Patient encounter procedure Nagi HAGAN -[facility] Work Phone: Start: 09-29-2024 End: 09-29-[address] Minerva Shaver MD Work Phone: [facility] Work Phone: Start: 09-28-2024 ambulatory MINERVA SHAVER Facility :[facility] Start: 09-25-2024 End: 09-25-[address] Minerva Shaver MD Work Phone: [facility] Work Phone: Start: 09-25-2024 End: 09-25-2024 Patient encounter procedure Ada DURAN -[facility] Work Phone: Start: 09-25-2024 End: 09-25-2024 ambulatory Ada Jaeger Facility:[facility] Start: 09-17-2024 End: 09-17-[address] Minerva Shaver MD Work Phone: [facility] Work Phone: Start: 09-17-2024 End: 09-17-[address] Omid Moreno MD -Laboratory Work Phone: Start: 09-17-2024 End: 09-17-2024 ambulatory Minerva Shaver Facility:[facility] Start: 09-15-2024 ambulatory Ada Jaeger [facility] Start: 09-15-2024 Non-patient / Non-visit Dr. Nils salcedo MD -[facility] Start: 09-15-2024 End: 09-15-[address] Minerva Shaver MD Work Phone: [facility] Work Phone: Start: 09-15-2024 End: 09-15-2024 Patient encounter procedure Ada DURAN -Pulmonary Services/Neurology Work Phone: Start: 09-15-2024 End: 09-15-2024 ambulatory Ada Jaeger Facility:[facility] Start: 08-17-2024 End: 08-17-2024 Patient encounter procedure Ada Jaeger [place] -[facility] Work Phone: Start: 08-17-2024 End: 08-17-[address] Minerva Shaver MD Work Phone: [facility] Work Phone: Start: 08-17-2024 End: 08-17-2024 ambulatory Ada Jaeger Facility:[facility] Start: 08-12-2024 ambulatory Minerva Shaver Facility:[facility] Start: 08-11-2024 End: 08-11-2024 ambulatory Minerva Shaver MD Work Phone: [facility] [place] Start: 08-11-2024 End: 08-11-2024 Patient encounter procedure Minerva Shaver MD Work Phone: [facility] Comment on above: Population Health Na vigation Outreach ([facility] ) Vertigo (Primary Dx) ; Paroxysmal atrial fibrillation (HCC); Sinus drainage; Neck pain Start: 08-09-2024 ambulatory Nagi Shirin Pete ALEXANDER Facility :[facility] Start: 08-06-2024 End: 08-09-2024 Refill Dianna Ballard APRN.BOLT SORTER Work Phone: [facility] [place] Comment on above: Refill Request Start: 08-05-2024 End: 08-05-2024 ambulatory Naila Dodd RN Work Phone: Coding Team Lead Management Comment on above: ACCande VALDEZ RN ( Chart review review per request of payor ) Start: 07-31-2024 End: 08-01-2024 Emergency department patient visit Dr. Minerva Shaver MD Work Phone: -Emergency Department Work Phone: Start: 07-29-2024 End: 07-29-[address] Minerva Shaver MD Work Phone: [facility] Work Phone: Start: 07-29-2024 End: 07-29-[address] Omid Moreno MD -Radiology, [facility] Work Phone: Start: 07-28-2024 End: 07-29-2024 ambulatory Dianna Ballard APRN.BOLT SORTER Work Phone: [facility] [place] Comment on above: Rehabilitation Start: 07-27-2024 End: 07-27-2024 Patient encounter procedure Nagi Sharma WORSHIP LEADER-vYes -[facility] Work Phone: Start: 07-27-2024 End: 07-27-2024 ambulatory Nagi Sharma WORSHIP LEADER Facility:[facility] Start: 07-23-2024 End: 08-13-2024 Telephone encounter Dianna Older RADIATOR CORE TESTER.BOLT SORTER Work Phone: [facility] [place] Comment on above: note for work Start: 07-22-2024 End: 07-26-2024 ambulatory Dianna Older RADIATOR CORE TESTER.BOLT SORTER Work Phone: [facility] [place] Comment on above: Back to work paper Start: 07-22-2024 End: 07-22-2024 Patient encounter procedure Dianna Older RADIATOR CORE TESTER.BOLT SORTER Work Phone: [facility] [place] Comment on above: Pneumonia of right u pper lobe due to infectious organism (Primary Dx) Start: 07-15-2024 End: 07-15-2024 [facility] Facility:[facility] Start: 07-15-2024 End: 07-15-2024 Patient encounter procedure Dianna Older RADIATOR CORE TESTER.BOLT SORTER Work Phone: [facility] [place] Comment on above: Acute otitis media, unspecified otitis media type (Primary Dx); Viral sinusitis; Pneumonia of right upper lobe due to infectious organism Start: 07-08-2024 End: 07-08-2024 [facility] Start: 07-08-2024 End: 07-08-2024 Patient encounter procedure Dianna Older RADIATOR CORE TESTER.BOLT SORTER Work Phone: [facility] [place] Comment on above: Pneumonia of right u pper lobe due to infectious organism (Primary Dx) Start: 07-06-2024 End: 07-06-2024 [facility] Facility:[facility] Start: 07-06-2024 End: 07-06-2024 Subsequent hospital visit by physician Melly [facility] (I-Stat) Work Phone: Cat Scan Comment on above: Lung nodules [R91.8] Start: 07-05-2024 End: 07-05-2024 Subsequent hospital visit by physician Xr [facility] Work Phone: Radiology Comment on above: Viral illness [B34.9 ] Start: 07-05-2024 End: 07-05-2024 [facility] Start: 07-05-2024 End: 07-05-2024 Office outpatient new 30 minutes Nadir Pickard PA-C Work Phone: [facility] Comment on above: Viral illness (Prima ry Dx); Pneumonia of right upper lobe due to infectious organism Start: 06-22-2024 End: 06-22-2024 [facility] Facility:[facility] Start: 06-22-2024 End: 06-22-2024 Office outpatient visit 25 minutes Fco BAIRDC Work Phone: Family [facility] [place] Comment on above: Acute cough (Primary Dx) Start: 06-22-2024 End: 06-22-2024 Telephone encounter Laith Montes MD Work Phone: Pulmonary Medicine Comment on above: Results; Orders ([facility] st CT) Start: 06-17-2024 End: 06-17-2024 [facility] Start: 06-17-2024 End: 06-17-2024 Patient encounter procedure Laith Montes MD Work Phone: Pulmonary Medicine Comment on above: 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 Start: 04-22-2024 End: 04-22-2024 Subsequent hospital visit by physician Alli Hernandez MD Work Phone: Cardiology [facility] Comment on above: Persistent atrial fi brillation Start: 04-21-2024 End: 04-21-2024 Subsequent hospital visit by physician Alli Hernandez MD Work Phone: [facility] Comment on above: Arrived Start: 04-21-2024 ambulatory ALLI Indigo HERNANDEZ Faci lity:[facility] Start: 04-21-2024 Anes nerve muscle td n fascia&bursa forearm wrist ALLI HERNANDEZ Facility:[facility] Start: 04-21-2024 Encounter for preprocedural cardiovascular examination ALLI HERNANDEZ [facility] Start: 04-19-2024 End: 04-19-2024 Patient encounter procedure Nagi Sharma WORSHIP LEADER-C -Laboratory Work Phone: Start: 04-19-2024 End: 04-19-2024 Patient encounter procedure Nagi Sharma WORSHIP LEADER-C -[facility] Work Phone: Start: 04-19-2024 End: 04-19-2024 ambulatory Nagi Sharma WORSHIP LEADER Facility:[facility] Start: 04-19-2024 End: 04-19-2024 ambulatory Nagi Sharma WORSHIP LEADER Facility:[facility] Start: 04-12-2024 End: 04-17-2024 Evaluation and management of inpatient Toña Persaud MD Work Phone: [facility] Comment on above: Atrial fibrillation Start: 04-12-2024 End: 04-12-2024 Emergency department patient visit Dr. Janes Zamudio DO -Emergency Department Work Phone: Start: 04-02-2024 End: 04-02-2024 Office outpatient visit 25 minutes Minerva Shaver MD Work Phone: Internal [facility] [place] Comment on above: Medicare annual well ness visit, subsequent (Primary Dx); Generalized arthritis; Peripheral arterial disease (HCC); Memory deficit; Encounter for monitoring chronic NSAID therapy; Thrush; Frailty syndrome in geriatric patient; Balance disorder; Generalized osteoarthrosis Start: 04-02-2024 End: 04-05-2024 ambulatory Minerva Shaver MD Work Phone: Internal Medicine [place] Comment on above: Rehabilitation Start: 04-02-2024 End: 04-02-2024 Patient encounter procedure Minerva Shaver MD Work Phone: [facility] Start: 04-02-2024 End: 04-02-2024 ambulatory Nagi Sharma WORSHIP LEADER Facility:[facility] Start: 03-24-2024 End: 03-24-2024 ambulatory Nagi Sharma WORSHIP LEADER Facility:[facility] Start: 03-24-2024 End: 03-24-2024 ambulatory Nagi Sharma WORSHIP LEADER Facility:[facility] Start: 03-16-2024 ambulatory Minerva Shaver Facility:[facility] Start: 03-08-2024 Emergency department patient visit MINERVA SHAVER Facility:[facility] Start: 03-08-2024 ambulatory ALLI Yin lity:[facility] Start: 02-23-2024 End: 02-23-2024 Telephone encounter Minerva Shaver MD Work Phone: Internal Medicine [place] Comment on above: Forms Start: 02-21-2024 End: 02-21-2024 ambulatory Immunization [facility] Nurse [place] Work Phone: Family [facility] Start: 02-21-2024 End: 02-21-2024 Patient encounter procedure Immunization Clinic Nurse [place] Work Phone: Family [facility] [place] Start: 01-01-2024 End: 01-01-2024 Patient encounter procedure Dianna Ballard APRN.BOLT SORTER Work Phone: Internal Medicine [place] Comment on above: Paroxysmal atrial fi brillation (HCC) (Primary Dx); Congestive heart failure, unspecified HF chronicity, unspecified heart failure type (HCC); Primary hypertension; Chronic obstructive pulmonary disease with acute exacerbation (HCC) Start: 12-25-2023 ambulatory Dianna SunBOLT SORTER Work Phone: Internal Medicine [place] Comment on above: Maki Barnett Start: 12-15-2023 End: 12-15-2023 ambulatory Pulm Lab [facility] Work Phone: [facility] Comment on above: Spirometry Start: 12-15-2023 End: 12-15-2023 Patient encounter procedure Pulm Lab [facility] Work Phone: PULM LAB [facility] Comment on above: COPD, mild (HCC) (Pr imary Dx); Former cigarette smoker Start: 10-23-2023 Refill Dianna Ballard APRN .BOLT SORTER Work Phone: Internal Medicine [place] Comment on above: Refill Request Start: 09-29-2023 End: 09-29-2023 Patient encounter procedure Dianna Ballard APRN.BOLT SORTER Work Phone: Internal Medicine [place] Comment on above: Paroxysmal atrial fi brillation (HCC) (Primary Dx); Congestive heart failure, unspecified HF chronicity, unspecified heart failure type (HCC); Primary hypertension; Chronic obstructive pulmonary disease with acute exacerbation (HCC); 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; Dermatitis; Lipid screening Start: 09-05-2023 End: 09-05-2023 Emergency department patient visit Dr. Minerva Shaver Work Phone: [facility]-Emergency Department Work Phone: Start: 09-05-2023 End: 09-05-2023 Patient encounter procedure Katheryn Stokes MD Work Phone: General Surgery Comment on above: Dysphagia, unspecifi ed type (Primary Dx) Start: 08-20-2023 Telephone encounter Katheryn Stokes MD Work Phone: General Surgery Comment on above: Results Start: 08-18-2023 [facility]ulatory [facility] Start: 08-18-2023 End: 08-18-2023 Subsequent hospital visit by physician Katheryn Stokes MD Work Phone: [facility] Endoscopy Comment on above: Dysphagia, unspecifi ed type [R13.10] Start: 08-15-2023 End: 08-15-[address] Minerva Shaver Work Phone: [facility] Work Phone: Start: 08-11-2023 End: 08-11-[address] Minerva Shaver Work Phone: [facility] Work Phone: Start: 08-05-2023 End: 08-05-[address] Minerva Shaver Work Phone: [facility] Work Phone: Start: 08-02-2023 Refill Laith Montes MD Work Phone: Pulmonary Medicine Comment on above: Refill Request Start: 07-14-2023 Refill Hodan HAWKINSBOLT SORTER Work Phone: Internal Medicine [place] Comment on above: Refill Request Start: 07-11-2023 End: 07-11-[address] Minerva Shaver Work Phone: [facility] [facility] Work Phone: Start: 07-04-2023 Non-patient / Non-visit Dr. Bee Shaver Work Phone: [facility] Start: 07-04-2023 End: 07-04-2023 Admission to same day surgery center Dr. Minerva Shaver Work Phone: [facility]-Electronic Science Teacher/Special Procedures Work Phone: Start: 07-04-2023 End: 07-04-[address] Minerva Shaver Work Phone: [facility] Work Phone: Start: 06-30-2023 End: 06-30-2023 Patient encounter procedure Dianna Ballard APRN.BOLT SORTER Work Phone: Internal Medicine [place] Comment on above: Chronic congestive h eart failure, unspecified heart failure type (HCC) (Primary Dx); Paroxysmal atrial fibrillation (HCC); Primary hypertension; History of CVA (cerebrovascular accident); Thrush Start: 06-24-2023 Non-patient / Non-visit Dr. Bee Shaver Work Phone: [facility] Start: 06-17-2023 End: 06-17-2023 ambulatory [facility] Work Phone: Start: 06-17-2023 End: 06-17-2023 Patient encounter procedure [facility]-Laboratory Work Phone: Start: 06-05-2023 End: 06-05-2023 ambulatory [facility] Work Phone: Start: 06-05-2023 End: 06-05-2023 Patient encounter procedure [facility]-Pulmonary Services/Neurology Work Phone: Start: 05-30-2023 End: 03-16-2024 Telephone encounter Katheryn Stokes MD Work Phone: General Surgery Comment on above: 08/18/2023 EGD HART Start: 05-01-2023 E-mail encounter fro m caregiver Joshua Nettles DO Work Phone: [facility] Start: 05-01-2023 Patient encounter procedure Joshua Nettles DO Work Phone: Cardiology Comment on above: Appointment Start: 04-10-2023 Refill Minerva Lawson Work Phone: [facility] Comment on above: Refill Request Start: 04-02-2023 End: 04-02-[address] Minerva Shaver Work Phone: [facility] Work Phone: Start: 04-02-2023 End: 04-02-[address] Minerva Shaver Work Phone: [facility]-Radiology, [facility] Work Phone: Start: 03-31-2023 End: 03-31-2023 Patient encounter procedure Dianna Older RADIATOR CORE TESTER.BOLT SORTER Work Phone: Internal Medicine [place] Comment on above: Acute non-recurrent sinusitis, unspecified location (Primary Dx) Start: 03-24-2023 ambulatory Laith Montes MD Work Phone: Pulmonary Medicine Comment on above: Results (Nocturnal o ximetry) Start: 03-23-2023 Refill Lizzettealexander Churchill Nay NAIRN.LIBRARY CLERICAL ASSISTANT Work Phone: Internal Medicine [place] Comment on above: Refill Request Start: 03-17-2023 End: 03-17-2023 ambulatory Lupe Ballard RADIATOR CORE TESTER.BOLT SORTER Work Phone: Internal Medicine [place] Comment on above: COVID-19 virus infec tion (Primary Dx) Start: 03-17-2023 End: 03-17-2023 Telemedicine consultation with patient Lupe Ballard APRN.BOLT SORTER Work Phone: [facility] Start: 03-04-2023 Telephone encounter Jennifer Ramos PA-C Work Phone: Family Medicine [place] Comment on above: Medication Clarifica tion Start: 03-04-2023 End: 03-04-2023 Patient encounter procedure Jennifer Rudd PA-C Work Phone: Internal Medicine [place] Comment on above: Chronic obstructive pulmonary disease, unspecified COPD type (HCC) (Primary Dx); Generalized arthritis Start: 03-03-2023 Telephone encounter Neurology Provid er Neurology Comment on above: Results Start: 02-28-2023 Telephone encounter Dianna Ballard APRN.ANITHA Work Phone: Family [facility] [place] Comment on above: Patient Question Start: 02-10-2023 End: 02-10-2023 Patient encounter procedure Dianna Ballard APRN.CNP Work Phone: Internal [facility] [place] Comment on above: Primary hypertension (Primary Dx); Chronic congestive heart failure, unspecified heart failure type (HCC); Chronic obstructive pulmonary disease, unspecified COPD type (HCC); Paroxysmal atrial fibrillation (HCC); Encounter for immunization Start: 02-04-2023 End: 02-04-[address] Minerva Shaver Work Phone: [facility] Work Phone: Start: 01-28-2023 End: 01-28-2023 Office outpatient visit 40 minutes Юлия Oden MD Work Phone: Internal Medicine [place] Comment on above: Paroxysmal atrial fi brillation [...] Start: 01-27-2023 End: 01-27-2023 ambulatory Pulm Lab [facility] Work Phone: [facility]UL[facility] Comment on above: Spirometry Start: 01-27-2023 End: 01-27-2023 Patient encounter procedure Pulm Lab [facility] Work Phone: [facility] Start: 01-24-2023 Telephone encounter Dianna Ballard APRN.CNP Work Phone: Internal Medicine [place] Comment on above: Results Start: 01-23-2023 End: 01-23-[address] Minerva Shaver Work Phone: [facility] Work Phone: Start: 01-23-2023 End: 01-23-2023 Subsequent hospital visit by physician Xr [facility] Work Phone: Radiology Comment on above: Shortness of breath [R06.02] Start: 01-23-2023 End: 01-23-2023 Patient encounter procedure Dianna Ballard APRN.CNP Work Phone: [facility] [place] Comment on above: Atrial fibrillation, unspecified type (HCC) (Primary Dx); Bradycardia; Congestive heart failure, unspecified HF chronicity, unspecified heart failure type (HCC); Shortness of breath; Recurrent pneumonia; Subacute cough; On home oxygen therapy; History of recent hospitalization; Acute pain of right shoulder; Fall, initial encounter Start: 01-10-2023 End: 01-10-2023 Patient encounter procedure Dianna Ballard APRN.CNP Work Phone: Internal Medicine [place] Comment on above: Pneumonia due to inf ectious organism, unspecified laterality, unspecified part of lung (Primary Dx); Atrial fibrillation, unspecified type (HCC); Abnormal EKG; Congestive heart failure, unspecified HF chronicity, unspecified heart failure type (HCC) Start: 01-03-2023 End: 01-03-2023 Patient encounter procedure Dianna Ballard APRN.CNP Work Phone: Internal Medicine [place] Comment on above: History of recent ho spitalization (Primary Dx); Congestive heart failure, unspecified HF chronicity, unspecified heart failure type (HCC); Pneumonia due to infectious organism, unspecified laterality, unspecified part of lung; Chronic obstructive pulmonary disease, unspecified COPD type (HCC); Function kidney decreased; C. difficile diarrhea; On home oxygen therapy Start: 01-02-2023 Non-patient / Non-visit Dr. Bee Shaver Work Phone: [facility] In[facility] Physicians Work Phone: Start: 01-01-2023 Non-patient / Non-visit Dr. Bee Shaver Work Phone: [facility] Work Phone: Start: 12-31-2022 Non-patient / Non-visit Dr. Bee Shaver Work Phone: [facility] Start: 12-31-2022 End: 01-02-2023 Evaluation and management of inpatient Dr. Minerva Shaver [facility] Work Phone: Start: 12-30-2022 Telephone encounter Dianna Ballard APRN.CNP Work Phone: Internal Medicine [place] Comment on above: Results Start: 12-26-2022 Telephone encounter Dianna Ballard APRN.CNP Work Phone: Internal Medicine [place] Comment on above: Results Start: 12-26-2022 End: 12-26-2022 Subsequent hospital visit by physician [facility] (I-Stat) Work Phone: Cat Scan Comment on above: Left lower quadrant abdominal pain [R10.32] Start: 12-26-2022 End: 12-26-2022 Patient encounter procedure Dianna Ballard APRN.BOLT SORTER Work Phone: Internal Medicine [place] Comment on above: Left lower quadrant abdominal pain (Primary Dx); Right lower quadrant abdominal tenderness without rebound tenderness; Bowel habit changes; Blood in stool Start: 12-13-2022 Telephone encounter Dianna Ballard APRN.BOLT SORTER Work Phone: Internal Medicine [place] Comment on above: Results Start: 12-12-2022 End: 12-12-2022 Subsequent hospital visit by physician Xr [facility] [place] Work Phone: Radiology Comment on above: Fever, unspecified f ever cause [R50.9] Start: 12-12-2022 End: 12-12-2022 Patient encounter procedure Dianna Ballard APRN.BOLT SORTER Work Phone: Internal Medicine [place] Comment on above: Fever, unspecified f ever cause (Primary Dx); Cough, unspecified type; Wheezing; Sore throat; Bilateral lower extremity edema; Congestive heart failure, unspecified HF chronicity, unspecified heart failure type (HCC) Start: 11-25-2022 End: 11-25-[address] Minerva Shaver Work Phone: [facility] Work Phone: Start: 11-25-2022 End: 11-25-[address] Minerva Shaver Work Phone: [facility]-Physical Therapy Work Phone: Start: 11-07-2022 ambulatory MINERVA SHAVER [facility] Ambulatory Start: 10-31-2022 End: 10-31-2022 Patient encounter procedure Minerva Shaver MD Work Phone: Internal Medicine [place] Comment on above: Atrial fibrillation, unspecified type (HCC) (Primary Dx); Generalized arthritis; Primary hypertension; Congestive heart failure, unspecified HF chronicity, unspecified heart failure type (HCC) Start: 10-03-2022 End: 10-03-[address] Minerva Shaver Work Phone: [facility] Work Phone: Start: 10-01-2022 End: 10-01-2022 Patient encounter procedure Zuleyma Persaud DO Work Phone: Vascular Surgery Comment on above: Peripheral arterial disease (HCC) (Primary Dx) Start: 09-26-2022 End: 09-26-2022 Subsequent hospital visit by physician Xr [facility] [place] Work Phone: Radiology Comment on above: Fall, initial encoun ter [W19.XXXA] Start: 09-13-2022 End: 09-13-2022 Refill Nellie Lewis LPN [facility] Comment on above: TIA (transient ische adonis attack) Start: 09-13-2022 End: 09-13-2022 Office outpatient new 45 minutes Dianna Ballard CNP Work Phone: [facility] Comment on above: Lumbar spondylosis ( Primary Dx); TIA (transient ischemic attack) Start: 09-03-2022 End: 09-03-2022 Patient encounter procedure Zuleyma Persaud DO Work Phone: Vascular Surgery Comment on above: Peripheral arterial disease (HCC) (Primary Dx) Start: 09-02-2022 End: 09-02-[address] Minerva Shaver Work Phone: [facility] Work Phone: Start: 08-29-2022 End: 08-29-2022 Patient encounter procedure Minerva Shaver MD Work Phone: Internal Medicine [place] Comment on above: Bradycardia (Primary Dx); Acute non-recurrent maxillary sinusitis; Congestive heart failure, unspecified HF chronicity, unspecified heart failure type (HCC); Atrial fibrillation, unspecified type (HCC); Panlobular emphysema (HCC); 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 Start: 08-27-2022 End: 08-27-[address] Minerva Shaver Work Phone: [facility] Work Phone: Start: 08-27-2022 End: 08-27-[address] Minerva Shaver Work Phone: [facility] Start: 08-19-2022 Transcribe Orders Dianna Alonso Work Phone: [facility], Neuroscience Comment on above: Cerebrovascular acci dent (CVA), unspecified mechanism (HCC) (Primary Dx) Start: 08-11-2022 Non-patient / Non-visit Dr. Bee Shaver Work Phone: [facility] Start: 08-10-2022 Non-patient / Non-visit Dr. Bee Shaver Work Phone: [facility] Start: 08-10-2022 End: 08-10-2022 Non-patient / Non-visit Dr. Minerva Shaver Work Phone: [facility] Start: 08-09-2022 Non-patient / Non-visit Dr. Bee Shaver Work Phone: [facility] Start: 08-08-2022 Non-patient / Non-visit Dr. Bee Shaver Work Phone: [facility] Start: 08-08-2022 End: 08-11-2022 Evaluation and management of inpatient Dr. Minerva Shaver Work Phone: [facility]-Progressive Care Unit Start: 08-08-2022 ambulatory Minerva Lawson Work Phone: [facility] [place] Comment on above: Neurologic Problem Start: 08-06-2022 Non-patient / Non-visit Dr. Bee Shaver Work Phone: [facility] Start: 08-06-2022 End: 08-06-[address] Minerva Shaver Work Phone: [facility] Work Phone: Start: 08-06-2022 End: 08-06-[address] Minerva Shaver Work Phone: [facility]-Cardiovascula r Services Start: 08-05-2022 End: 08-05-2022 Non-patient / Non-visit Dr. Minerva Shaver Work Phone: [facility] Start: 08-05-2022 End: 08-05-2022 Admission to same day surgery center Dr. Minerva Shaver Work Phone: [facility]-Electronic Science Teacher/Special Procedures Start: 08-05-2022 End: 08-05-[address] Minerva Shaver Work Phone: [facility] Work Phone: Start: 07-25-2022 End: 07-25-[address] Minerva Shaver Work Phone: [facility] Work Phone: Start: 07-25-2022 End: 07-25-[address] Minerva Shaver Work Phone: [facility]-Laboratory Start: 07-25-2022 End: 07-25-[address] Minerva Shaver Work Phone: [facility] Start: 07-19-2022 Telephone encounter Minerva melgoza MD Work Phone: [facility] [place] Comment on above: Referral Request (Dr Bhardwaj) Start: 07-18-2022 End: 07-18-2022 Patient encounter procedure Katheryn Stokes MD Work Phone: General Surgery Comment on above: Incisional hernia, w ithout obstruction or gangrene (Primary Dx); Dysphagia, unspecified type; Hiatal hernia with GERD without esophagitis; Personal history of colonic polyps Start: 07-12-2022 End: 07-12-[address] Minerva Shaver Work Phone: [facility] Work Phone: Start: 07-12-2022 End: 07-12-[address] Minerva Shaver Work Phone: [facility]-Radiology, [facility] Start: 06-27-2022 Telephone encounter Minerva melgoza MD Work Phone: [facility] [place] Comment on above: FMLA Paperwork Start: 06-18-2022 End: 06-18-2022 Patient encounter procedure Minerva Shaver MD Work Phone: [facility] [place] Comment on above: Congestive heart gema lure, unspecified HF chronicity, unspecified heart failure type (HCC) (Primary Dx); Atrial fibrillation, unspecified type (HCC); Primary hypertension Start: 06-17-2022 Telephone encounter Minerva melgoza MD Work Phone: [facility] [place] Comment on above: Results Start: 06-08-2022 ambulatory Minerva Lawson Work Phone: Internal Medicine [place] Start: 06-08-2022 End: 06-08-2022 Patient encounter procedure Minerva Shaver MD Work Phone: [facility] [place] Comment on above: Abdominal pain, unsp ecified abdominal location (Primary Dx); Other fatigue; Fever, unspecified fever cause; Chills; Vitamin B12 deficiency; Vitamin D deficiency Start: 05-29-2022 End: 05-29-[address] Minerva Shaver Work Phone: [facility] Start: 05-28-2022 End: 05-28-2022 Subsequent hospital visit by physician Melly [facility] (I-Stat) Work Phone: Cat Scan Comment on above: Hiatal hernia with G ERD without esophagitis [K44.9, K21.9] Start: 05-23-2022 Telephone encounter Minerva melgoza MD Work Phone: [facility] [place] Comment on above: Results waitlist; 06/11/2022 colon asc' Start: 05-23-2022 End: 05-23-2022 Patient encounter procedure Katheryn Stokes MD Work Phone: General Surgery Comment on above: Personal history of colonic polyps (Primary Dx); Hiatal hernia with GERD without esophagitis; Dysphagia, unspecified type; Incisional hernia, without obstruction or gangrene Start: 05-22-2022 End: 05-22-2022 Patient encounter procedure Dianna Ballard APRN.BOLT SORTER Work Phone: Internal Medicine [place] Comment on above: Epigastric pain (Farzaneh brit Dx); Hiatal hernia with GERD without esophagitis; Bowel habit changes; Other fatigue; Nausea; Fever, unspecified fever cause Start: 2022 Telephone encounter Dianna Ballard APRN.BOLT SORTER Work Phone: Internal [facility] [place] Comment on above: Results Start: 05-17-2022 Telephone encounter Minerva melgoza MD Work Phone: [facility] [place] Comment on above: Patient Update Start: 05-15-2022 End: 05-15-2022 Subsequent hospital visit by physician Xr [facility] [place] Work Phone: Radiology Comment on above: Fever, unspecified f ever cause [R50.9] Start: 05-15-2022 End: 05-15-2022 Patient encounter procedure Dianna Ballard APRN.BOLT SORTER Work Phone: Internal [facility] [place] Comment on above: Shortness of breath (Primary Dx); Fever, unspecified fever cause; Other fatigue; Elevated liver enzymes; Decreased appetite; Foul smelling urine; Dysphagia, unspecified type; Hiatal hernia with GERD without esophagitis; 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 Minerva Shaver Work Phone: [facility] Work Phone: Start: 05-10-2022 End: 05-10-[address] Minerva Shaver Work Phone: [facility], [facility] Start: 05-07-2022 End: 05-07-[address] Minerva Shaver Work Phone: [facility] Work Phone: Start: 05-07-2022 End: 05-07-[address] Minerva Shaver Work Phone: [facility]-Radiology, [facility] Start: 05-02-2022 Telephone encounter Dianna Ballard RADIATOR CORE TESTER.BOLT SORTER Work Phone: Internal [facility] Comment on above: Patient Question Start: 05-01-2022 Telephone encounter Minerva melgoza MD Work Phone: Internal [facility] Comment on above: fax referral to [facility] Start: 04-30-2022 Telephone encounter Hodan cross RADIATOR CORE TESTER.[employer]OL[employer] SORTER Work Phone: Internal [facility] Comment on above: Results Start: 04-29-2022 End: 04-29-2022 Patient encounter procedure Hodan Stevens RADIATOR CORE TESTER.[employer]OL[employer] SORTER Work Phone: [facility] [place] Comment on above: Hiatal hernia with G ERD without esophagitis (Primary Dx); 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 Minerva Shaver Work Phone: [facility]-Emergency Department Start: 04-27-2022 End: 04-27-2022 Patient encounter procedure Tamica Carson RADIATOR CORE TESTER.BOLT SORTER Work Phone: [facility] Comment on above: Abdominal pain, unsp ecified abdominal location (Primary Dx); Difficulty breathing Start: 04-19-2022 Telephone encounter Minerva melgoza MD Work Phone: [facility] [place] Comment on above: Results Start: 04-18-2022 End: 04-18-2022 Subsequent hospital visit by physician Stephanie [facility] [place] Work Phone: Radiology Comment on above: Pneumonia of right m iddle lobe due to infectious organism [J18.9] Start: 04-16-2022 End: 04-16-[address] Minerva Shaver Work Phone: [facility] Work Phone: Start: 04-16-2022 End: 04-16-[address] Minerva Shaver Work Phone: [facility]-Laboratory Start: 04-15-2022 End: 04-15-[address] Minerva Shaver Work Phone: [facility] Work Phone: Start: 04-15-2022 End: 04-15-[address] Minerva Shaver Work Phone: [facility]-Laboratory Start: 04-08-2022 Non-patient / Non-visit Dr. Bee Shaver Work Phone: [facility] Start: 04-08-2022 End: 04-08-[address] Minerva Shaver Work Phone: [facility] Work Phone: Start: 04-08-2022 End: 04-08-[address] Minerva Shaver Work Phone: [facility]-Cardiovascula r Services Start: 04-02-2022 End: 04-02-[address] Minerva Shaver Work Phone: [facility] Work Phone: Start: 04-02-2022 End: 04-02-[address] Minerva Shaver Work Phone: [facility]-Radiology, [facility] Start: 03-22-2022 Telephone encounter Minerva melgoza MD Work Phone: [facility] [place] Comment on above: Letter (return back to work without restrictions) Start: 03-20-2022 Telephone encounter Minerva melgoza MD Work Phone: [facility] [place] Comment on above: Patient Question Start: 03-18-2022 End: 03-18-2022 Patient encounter procedure Dianna Ballard APRN.BOLT SORTER Work Phone: [facility] [place] Comment on above: Pneumonia due to inf ectious organism, unspecified laterality, unspecified part of lung (Primary Dx) Start: 03-15-2022 End: 03-15-2022 Subsequent hospital visit by physician Stephanie [facility] [place] Work Phone: Radiology Comment on above: Chest pain, unspecif ied type [R07.9] Start: 03-08-2022 End: 03-08-2022 Patient encounter procedure Dianna Ballard APRN.BOLT SORTER Work Phone: [facility] [place] Comment on above: Pneumonia due to inf ectious organism, unspecified laterality, unspecified part of lung (Primary Dx); Congestive heart failure, unspecified HF chronicity, unspecified heart failure type (HCC); Gastroesophageal reflux disease, unspecified whether esophagitis present Start: 03-06-2022 End: 03-06-[address] Minerva Shaver Work Phone: [facility] Work Phone: Start: 03-06-2022 End: 03-06-[address] Minerva Shaver Work Phone: [facility] Start: 03-06-2022 End: 03-06-[address] Minerva Shaver Work Phone: [facility] Start: 02-27-2022 End: 02-27-[address] Minerva Shaver Work Phone: [facility] Start: 02-25-2022 Telephone encounter Minerva melgoza MD Work Phone: [facility] [place] Comment on above: Results Start: 02-22-2022 End: 02-22-2022 Patient encounter procedure Minerva Shaver MD Work Phone: [facility] [place] Comment on above: Sore throat (Primary Dx); Chills with fever; 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 Start: 02-06-2022 End: 02-06-[address] Minerva Shaver Work Phone: [facility] Start: 01-21-2022 End: 01-21-2022 Patient encounter procedure Minerva Shaver MD Work Phone: [facility] [place] Comment on above: Congestive heart gema lure, unspecified HF chronicity, unspecified heart failure type (HCC) (Primary Dx); Need for influenza vaccination; Frequency of urination; Primary hypertension; Generalized arthritis; Urinary tract infection without hematuria, site unspecified Start: 01-04-2022 Telephone encounter Mavis Saunders MD Work Phone: Gynecology Comment on above: Patient Update Post Op; Pain Start: 12-28-2021 Telephone encounter Trinidad Soto APRN.BOLT SORTER Work Phone: Pre Anesthesia Comment on above: Patient Update (Surg michael instructions) Start: 12-27-2021 End: 12-27-2021 Preprocedural examination done Us 2 Work Phone: Radiology Start: 12-27-2021 End: 12-27-2021 Subsequent hospital visit by physician [facility] Work Phone: Radiology Comment on above: Vaginal enterocele d ue to incomplete uterovaginal prolapse [N81.2] Start: 12-26-2021 Telephone encounter Qiana ontiveros MD Work Phone: Obstetrics/Gynecology Comment on above: Future Appointment Start: 12-24-2021 End: 12-24-2021 Telemedicine consultation with patient Irma Adair [employer]TER Work Phone (unformatted): [phone] [facility] Start: 12-24-2021 End: 12-24-2021 Admission to establishment [facility] [place] 1 Work Phone: [facility] [place] Start: 12-24-2021 End: 12-24-2021 ambulatory [facility] [place] 1 Work Phone: Pre Anesthesia Comment on [...] Start: 12-24-2021 End: 12-24-2021 Preprocedural examination done [place] [id number] Work Phone: Pre Anesthesia Start: 12-21-2021 End: 12-21-[address] Minerva Shaver Work Phone: [facility]-Laboratory Start: 12-21-2021 End: 12-21-[address] Minerva Shaver Work Phone: [facility] Start: 12-11-2021 Telephone encounter Qiana ontiveros MD Work Phone: Obstetrics/Gynecology Comment on above: Preparations For Fabienne digna Start: 12-07-2021 End: 12-07-2021 ambulatory Qiana Pizarro MD Work Phone: [facility] Comment on above: Incomplete uterovagi nal prolapse (Primary Dx); Cystocele, midline; 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; Rectocele; Preoperative examination; Overactive bladder Start: 12-07-2021 End: 12-07-2021 Preprocedural examination done Qiana Pizarro MD Work Phone: WELLNESS NURSE RN [facility] Start: 12-07-2021 End: 12-07-2021 Telemedicine consultation with patient Qiana Pizarro MD Work Phone: [facility] Start: 11-07-2021 ambulatory Minerva Lawson Work Phone: Internal Medicine [facility] Start: 10-15-2021 Telephone encounter Minerva melgoza MD Work Phone: [facility] [place] Comment on above: Patient Update Start: 10-11-2021 End: 10-11-[address] Minerva Shaver Work Phone: [facility] Start: 09-21-2021 End: 09-21-2021 Patient encounter procedure Lindsay Zee MD Work Phone: OB/Gynecology Comment on above: Vaginal enterocele d ue to incomplete uterovaginal prolapse (Primary Dx) Start: 09-07-2021 Telephone encounter Dianna Ballard APRN.BOLT SORTER Work Phone: Internal [facility] [place] Comment on above: Results Start: 05-02-2021 End: 05-02-2021 Subsequent hospital visit by physician Xr [facility] Work Phone: Radiology Comment on above: Contusion of right f oot including toes, initial encounter [S90.31XA, S90.121A] Start: 02-09-[address] Yves Shaver Work Phone: [facility] Start: 02-09-[address] Minerva Shaver MD Work Phone: [facility] Start: 01-16-2021 End: 01-16-2021 Subsequent hospital visit by physician Xr [facility] Work Phone: Radiology Comment on above: Neck pain [M54.2] Start: 06-05-2020 End: 06-05-2020 Subsequent hospital visit by physician Xr [facility] Work Phone: Radiology Comment on above: Foot injury, left, i nitial encounter [S99.922A] Procedures Date Procedure Procedure Detail Performing Clinician Start: 01-26-2025 Plain x-ray of pelvis and lower extremity Dr. Minerva Shaver MD Work Phone: Start: 01-07-2025 Urnls dip stick/tablet rgnt auto w/o microscopy [facility] Provider Start: 12-10-2024 Urnls dip stick/tablet reagent auto microscopy Dianna Ballard APRN.BOLT SORTER Work Phone: Start: 12-10-2024 Urnls dip stick/tablet rgnt auto w/o microscopy Dianna Older RADIATOR CORE TESTER.[employer]OL[employer] SORTER Work Phone: Start: 10-25-2024 Decompression of median nerve Dr. Minerva Shaver MD Work Phone: Start: 10-08-2024 CARDIAC RHYTHM Other Other OT Start: 10-08-2024 DEVICE EVALUATION Other Other OT Start: 10-08-2024 CBC AND ELECTRONIC DIFF Anuel Cortes MD Work Phone: Start: 10-08-2024 Complete blood count with white cell differential, automated Anuel Cortes MD Work Phone: Start: 10-08-2024 Creatinine blood Anuel Cortes MD Work Phone: Start: 10-07-2024 Radiologic exam chest 2 views Landon Adhikari MD Work Phone: Start: 10-07-2024 Icar [...] Work Phone: Start: 10-02-2024 EXTRA MICRO Taylor Mckee MD Work Phone: Start: 10-02-2024 URINALYSIS REFLEX [...] Phone: Start: 04-22-2024 Prothrombin time Kala A Kennedi RADIATOR CORE TESTER-BOLT SORTER Work Phone: Start: 04-22-2024 Ecg routine ecg w/least 12 lds w/i&r Kala A Kennedi RADIATOR CORE TESTER-BOLT SORTER Work Phone: Start: 04-21-2024 Ct heart contrast eval cardiac structure&morph Shola Workman MD Work Phone: Start: 04-19-2024 Evaluation of diagnostic study results Dr. Minerva Shaver MD Work Phone: Start: 04-17-2024 CARDIAC RHYTHM Other Other OT Start: 04-17-2024 Assay of magnesium Rica Kateth PA-C Work Phone: Start: 04-17-2024 CBC AND ELECTRONIC DIFF Rica Romero th PA-C Work Phone: Start: 04-17-2024 Complete [...] Jazz PA-C Work Phone: Start: 04-14-2024 TTE margaux gonzalez,Andie Persaud MD Work Phone: Start: 04-14-2024 Assay [...] Start: 04-13-2024 CBC AND ELECTRONIC DIFF Rica Nay Neme th PA-C Work Phone: Start: 04-13-2024 Complete blood count with white cell differential, automated Rcia Nay Jazz PA-C Work Phone: Start: 04-13-2024 Thromboplastin time partial plasma/whole blood Rica Tee Jazz PA-C Work Phone: Start: 04-13-2024 Radiologic exam chest single view Kevin estevez Nay Jazz PA-C Work Phone: Start: 04-13-2024 Bilirubin direct Rica Tee Jazz PA-C Work Phone: Start: 04-13-2024 CBC AND ELECTRONIC DIFF Rica Nay Neme th PA-C Work Phone: Start: 04-13-2024 Complete blood count with white cell differential, automated Rica Nay Jazz PA-C Work Phone: Start: 04-13-2024 Lipid panel Rica Nay Jazz PA-C Work Phone: Start: 04-12-2024 Ecg routine ecg w/least 12 lds trcg only w/o i&r Rica Tee Jazz PA-C Work Phone: Start: 04-12-2024 Plain [...] HIGH DOSE, QUADRIVALENT (FLUZONE HIGH-DOSE) Dianna Ballard RADIATOR CORE TESTER.[employer]OL[employer] SORTER Work Phone: Start: 01-27-2023 Co diffusing capacity Laith barrera MD Work Phone: Start: 01-23-2023 Radex shoulder complete minimum 2 views Dianna Ballard RADIATOR CORE TESTER.[employer]OL[employer] SORTER Work Phone: Start: 01-23-2023 Radiologic exam chest 2 views Dianna Ballard RADIATOR CORE TESTER.BOL[employer] SORTER Work Phone: Start: 12-31-2022 Legionella pneumophila antigen assay Dr. Minerva Shaver Work Phone: Start: 12-31-[address] Minerva Shaver Work Phone: Start: 12-31-2022 Streptococcus pneumoniae Antigen (M Dr. Minerva Shaver Work Phone: Start: 12-31-2022 Plain chest X-ray Dr. Minerva Shaver Work Phone: Start: 12-26-2022 Ct abdomen & pelvis w/contrast material Dianna Ballard APRN.BOLT SORTER Work Phone: Start: 12-12-2022 Sars-cov-2 detection by dna/rna Dianna jacob RADIATOR CORE TESTER.[employer]OL[employer] SORTER Work Phone: Start: 12-12-2022 Radiologic exam chest 2 views Dianna Ballard RADIATOR CORE TESTER.BOL[employer] SORTER Work Phone: Start: 12-12-2022 STREP A MOLECULAR (POC) Dianna Ballard RADIATOR CORE TESTER.C WORSHIP LEADER Work Phone: Start: 09-26-2022 Radex spine lumbosacral 2/3 views Dianna Dodd emil RADIATOR CORE TESTER.[employer]OL[employer] SORTER Work Phone: Start: 08-09-2022 MRI of cervical [...] Radiologic exam chest 2 views Dianna Ballard RADIATOR CORE TESTER.[employer]OL[employer] SORTER Work Phone: Start: 05-15-2022 Urnls dip stick/tablet rgnt auto w/o microscopy Dianna Ballard RADIATOR CORE TESTER.BOL[employer] SORTER Work Phone: Start: 05-10-2022 US scan of [...] Radiologic exam chest 2 views Dianna Ballard APRN.BOLT SORTER Work Phone: Start: 03-06-2022 Plain chest X-ray [...] 04-30-2021 Adult depression screening assessment Dianna Ballard APRN.BOLT SORTER Work Phone: Start: 01-16-2021 Radex spine cervical 4 or 5 views Minerva Shaver MD Work Phone: Start: 06-05-2020 Radex ankle complete minimum 3 views Zayra Wolf PA-C Work Phone: Start: 01-19-2020 Lipid 1996 panel - Serum or Plasma Dianna Juve ni RADIATOR CORE TESTER.BOL[employer] SORTER Work Phone: Start: 01-14-2019 Mammography Dianna Ballard RADIATOR CORE TESTER.BOL[employer] SORTER Work Phone: Start: 11-22-2015 Colonoscopy Dianna Ballard RADIATOR CORE TESTER.BOLT SORTER Work Phone: H/O: surgery H/O neck surgery Dr. Minerva Shaver Work Phone: Comment on above: plate placement - r hip bone graft 1977 History of decompres ramírez of median nerve Status post carpal tunnel release Dr. Minerva Shaver MD Work Phone: History of decompres ramírez of median nerve Status post carpal tunnel release Dr. Dragan Fink MD SARS-CoV-2 & FLU Antigen (Rapid) Dr. Minerva Shaver Work Phone: SARS-CoV-2 & FLU Antigen (Rapid) Dr. Minerva Shaver Work Phone: Plan of Treatment Date Care Activity Detail Author Start: 09-04-2033 Tetanus vaccination TETANUS [facility] Start: 09-04-2033 Urine microalbumin profile DTaP,Tdap,Td Vaccine (2 - Td or Tdap) [facility] Start: 06-11-2032 Screening for malignant neoplasm of colon [facility] Start: 07-08-2028 Tetanus vaccination Tetanus: Every 10yrs [facility] Start: 12-11-2027 Diabetes Screening Diabetes Screening [facility] Start: 10-19-2027 Diabetes Screening Diabetes Screening [facility] Start: 10-09-2027 Diabetes Screening Diabetes Screening [facility] Start: 04-21-2027 Diabetes Screening Diabetes Screening [facility] Start: 04-17-2027 Diabetes Screening Diabetes Screening [facility] Start: 12-14-2026 Diabetes Screening Diabetes Screening [facility] Start: 01-07-2026 Annual PCP Team Chronic Disease Visit Annual PCP Team Chronic Disease Visit [facility] Start: 12-26-2025 DIABETES SCREEN DIABETES SCREEN [facility] Start: 12-26-2025 Diabetes Screening Diabetes Screening [facility] Start: 12-12-2025 DIABETES SCREEN DIABETES SCREEN [facility] Start: 12-10-2025 Annual PCP Team Chronic Disease Visit Annual PCP Team Chronic Disease Visit [facility] Start: 10-22-2025 Annual PCP Team Chronic Disease Visit Annual PCP Team Chronic Disease Visit [facility] Start: 10-08-2025 Potassium [Moles/volume] in Serum or Plasma POTASSIUM [facility] Start: 08-11-2025 Annual PCP Team Chronic Disease Visit Annual PCP Team Chronic Disease Visit [facility] Start: 07-22-2025 Annual PCP Team Chronic Disease Visit Annual PCP Team Chronic Disease Visit [facility] Start: 07-22-2025 Covid-19 Vaccine () Covid-19 Vaccine () [facility] Comment on above: Postponed from 01/11/2024 (Declined at t his time) Start: 07-15-2025 Annual PCP Team Chronic Disease Visit Annual PCP Team Chronic Disease Visit [facility] Start: 07-15-2025 BP Controlled (<130/80) BP Controlled (<130/80) [facility] Start: 07-08-2025 Annual PCP Team Chronic Disease Visit Annual PCP Team Chronic Disease Visit [facility] Start: 06-22-2025 Annual PCP Team Chronic Disease Visit Annual PCP Team Chronic Disease Visit [facility] Start: 05-15-2025 DIABETES SCREEN DIABETES SCREEN [facility] Start: 05-03-2025 End: 05-03-2025 Patient encounter procedure [facility] Comment on above: f/up ct chest Start: 05-02-2025 End: 07-17-2025 CT Chest WO contrast CT CHEST WO IVCON Radiology Routine 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) Lung nodules Former cigarette smoker Expected: 05/02/2025, Expires: 07/17/2025 [facility] Work Phone: Comment on above: Expected: 05/02/2025, Expires: Start: 05-02-2025 End: 05-02-2025 Patient encounter procedure 05/02/2025 11:00 AM EST Appointment Cat Scan [address] [place] [address] 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) [J44.9]; Lung nodules [R91.8]; Former cigarette smoker [Z87.891] Cat Scan Comment on above: 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) [J44.9]; Lung nodules [R91.8]; Former cigarette smoker [Z87.891] Start: 04-29-2025 DIABETES SCREEN DIABETES SCREEN [facility] Start: 04-17-2025 Potassium [Moles/volume] in Serum or Plasma POTASSIUM [facility] Start: 04-11-2025 End: 04-11-2025 Patient encounter procedure 04/11/2025 11:20 AM EST Office Visit [facility] [place] [address] [place], [place] [id number] Dianna Ballard APRN.BOLT SORTER [address] [place], [place] [address] Medicare Wellness [facility] [place] Comment on above: Medicare Wellness Start: 04-02-2025 Annual PCP Team Chronic Disease Visit Annual PCP Team Chronic Disease Visit [facility] Start: 04-02-2025 BP Controlled (<130/80) BP Controlled (<130/80) [facility] Start: 03-15-2025 DIABETES SCREEN DIABETES SCREEN [facility] Start: 03-02-2025 End: 03-02-2025 Patient encounter procedure 03/02/2025 1:30 PM EDT Office Visit [facility] [address] [place] [address] Erlinda Casey, RADIATOR CORE TESTER-BOLT SORTER [address] [place] [address] [facility] Start: 01-26-2025 End: 04-27-2025 Urinalysis complete panel - Urine URINALYSIS (WITH MICROSCOPIC) WITH CULTURE IF INDICATED Lab Routine Urinary tract infection with hematuria, site unspecified Expected: 01/26/2025 (Approximate), Expires: 04/27/2025 [facility] Work Phone: Comment on above: Expected: 01/26/2025 (Approximate), Expi res: 04/27/2025 Start: 01-26-2025 Plain x-ray of pelvis and lower extremity HIP, UNI W/ Pelvis 2-3 Views [facility] Start: 01-26-2025 XR Pelvis and Hip Views [facility] Start: 01-18-2025 Lipid 1996 panel - Serum or Plasma Lipid Screening [facility] Start: 01-18-2025 Lipid panel Lipid Screening [facility] Start: 01-18-2025 LIPID SCREEN LIPID SCREEN [facility] Start: 01-10-2025 Influenza vaccination Influenza Vaccine (#1) [facility] Start: 01-07-2025 End: 01-07-2025 Patient encounter procedure 01/07/2025 10:20 AM EDT Office Visit Internal [facility] [place] [address] [place] [address] Dianna Ballard APRN.BOLT SORTER [address] [place] [address] 4 week followup [facility] [place] Comment on above: 4 week followup Start: 12-31-2024 Annual PCP Team Chronic Disease Visit Annual PCP Team Chronic Disease Visit [facility] Start: 12-24-2024 DIABETES SCREEN DIABETES SCREEN [facility] Start: 12-14-2024 BP Controlled (<130/80) BP Controlled (<130/80) [facility] Start: 12-10-2024 End: 12-10-2024 Patient encounter procedure 12/10/2024 9:00 AM EDT Office Visit [facility] [place] [address] [place] [address] Dianna Ballard APRN.BOLT SORTER [address] [place] [address] 6 week follow up [facility] [place] Comment on above: 6 week follow up Start: 12-03-2024 End: 12-03-2024 Patient encounter procedure 12/03/2024 11:00 AM EDT Office Visit [facility] [place] [address] [place] [address] Dianna Ballard APRN.BOLT SORTER [address] [place] [address] 6 week follow up [facility] [place] Comment on above: 6 week follow up Start: 11-02-2024 End: 11-02-2024 Patient encounter procedure 11/02/2024 10:00 AM EDT Office Visit Coding Team Lead Center [facility] [address] [place] [address] Coding Team Lead Center [facility] Start: 10-25-2024 Anes nerve muscle tdn fascia&bursa forearm wrist ANESTH LOWER ARM SURGERY [facility] Start: 10-25-2024 Decompression of median nerve CARPAL TUNNEL SURGERY [facility] Start: 10-25-2024 Neuroplasty &/transpos median nrv carpal tunne CARPAL TUNNEL SURGERY [facility] Start: 10-25-2024 Patient discharge [facility] Start: 10-22-2024 End: 01-21-2025 Urinalysis complete panel - Urine URINALYSIS (WITH MICROSCOPIC) WITH CULTURE IF INDICATED Lab Routine Urinary tract infection without hematuria, site unspecified Expected: 10/22/2024, Expires: 01/21/2025 [facility] Work Phone: Comment on above: Expected: 10/22/2024, Expires: Start: 10-22-2024 End: 10-22-2024 Patient encounter procedure Internal Med [facility] [place] Comment on above: 3 month follow up 3 month follow up - Recent Hosp D/C - [facility] Start: 10-22-2024 End: 10-22-2024 Patient encounter procedure 10/22/2024 8:20 AM EDT Office Visit [facility] [place] [address] [place] [address] Dianna Ballard APRN.BOLT SORTER [address] [place] [address] 3 month follow up - Recent Hosp D/[facility] - [facility] [place] Comment on above: 3 month follow up - Recent Hosp D/[facility] - [facility] Start: 10-05-2024 End: 01-04-2025 Basic metabolic 2000 panel - Serum or Plasma BASIC METABOLIC PANEL Lab Routine CHF (congestive heart failure) (HCC) Expected: 10/05/2024, Expires: 01/04/2025 [facility] Work Phone: Comment on above: Expected: 10/05/2024, Expires: Start: 10-05-2024 End: 01-04-2025 CBC panel - Blood by Automated count COMPLETE BLOOD COUNT Lab Routine Medication management Expected: 10/05/2024, Expires: 01/04/2025 [facility] Comment on above: Expected: 10/05/2024, Expires: Start: 10-05-2024 End: 01-04-2025 Magnesium [Mass/volume] in Serum or Plasma MAGNESIUM Lab Routine Medication management Expected: 10/05/2024, Expires: 01/04/2025 [facility] Comment on above: Expected: 10/05/2024, Expires: Start: 09-30-2024 Patient discharge [facility] Start: 09-29-2024 Evaluation of diagnostic study results 12 Lead EKG performed by [facility] Start: 09-28-2024 Annual PCP Team Chronic Disease Visit Annual PCP Team Chronic Disease Visit [facility] Start: 09-28-2024 BP Controlled (<130/80) BP Controlled (<130/80) [facility] in Start: 09-25-2024 MR Lumbar spine [facility] Start: 09-25-2024 MRI of lumbar spine Spine Lumbar (Routine) [facility] Start: 09-06-2024 DIABETES SCREEN DIABETES SCREEN [facility] Start: 08-22-2024 End: 08-21-2025 XR Chest PA and Lateral XR CHEST 2V FRONTAL/LAT Radiology Routine Pneumonia of right upper lobe due to infectious organism Expected: 08/22/2024 (Approximate), Expires: 08/21/2025 [facility] Work Phone: Comment on above: Expected: 08/22/2024 (Approximate), Expi res: 08/21/2025 Start: 08-11-2024 End: 08-11-2024 Patient encounter procedure [facility] [place] Comment on above: Vertigo Start: 08-01-2024 [facility] Start: 07-22-2024 End: 07-22-2024 Patient encounter procedure 07/22/2024 9:40 AM EDT Office Visit Internal Medicine [place] [address] [place] [address] Dianna Ballard APRN.BOLT SORTER [address] [place] [address] 1 week follow up [facility] [place] Comment on above: 1 week follow up Start: 07-15-2024 End: 07-15-2024 Patient encounter procedure 07/15/2024 1:40 PM EST Office Visit Internal [facility] [place] [address] [place] [address] Dianna Ballard APRN.[facility]OL[facility]TER [address] [place] [address] 1 week follow up [facility] [place] Comment on above: 1 week follow up Start: 07-15-2024 End: 07-15-2024 Patient encounter procedure 07/15/2024 10:40 AM EST Office Visit Internal Medicine [place] [address] [place] [address] Dianna Ballard APRN.BOL[facility] SORTER [address] [place] [address] Visit to urgent care July 05 pneumonia [facility] [place] Comment on above: Visit to urgent care July 05 pneumon ia Start: 07-08-2024 End: 07-08-2024 Patient encounter procedure 07/08/2024 9:40 AM EST Office Visit Internal Medicine [place] [address] [place] [address] Dianna Ballard RADIATOR CORE TESTER.BOL[facility] SORTER [address] [place] [address] Visit to urgent care July 05 pneumonia [facility] [place] Comment on above: Visit to urgent care July 05 pneumon ia Start: 07-06-2024 End: 07-06-2024 Patient encounter procedure 07/06/2024 11:40 AM EST Appointment Cat Scan [address] [place] [address] Lung nodules [R91.8]; Centrilobular emphysema (HCC) [J43.2]; Former cigarette smoker [Z87.891] [facility] Comment on above: Lung nodules [R91.8]; Centrilobular emph ysema (HCC) [J43.2]; Former cigarette smoker [Z87.891] Start: 06-30-2024 Annual PCP Team Chronic Disease Visit Annual PCP Team Chronic Disease Visit [facility] Start: 06-30-2024 BP Controlled (<130/80) BP Controlled (<130/80) [facility] inic Start: 06-17-2024 End: 06-17-2024 Patient encounter procedure 06/17/2024 10:00 AM EST Office Visit Pulmonary Medicine [address] [place], [place] [id number] Laith Montes MD [address] [place], [place] [id number] 6 month f/u Pulmonary Medicine Comment on above: 6 month f/u Start: 06-11-2024 Colonoscopy COLONOSCOPY [facility] Start: 06-11-2024 COLORECTAL CANCER SCREENING COLORECTAL CANCER SCREENING [facility] Start: 06-11-2024 Screening for malignant neoplasm of colon [facility] Start: 06-03-2024 End: 04-22-2025 Cardiac telemetry MOBILE CARDIAC TELEMETRY ECG Routine Persistent atrial fibrillation Expected: 06/03/2024, Expires: 04/22/2025 [facility] Comment on above: Expected: 06/03/2024, Expires: Start: 05-26-2024 [facility] Start: 05-12-2024 Advance Directive Discussion Advance Directive Discussion [facility] Start: 05-12-2024 Medicare [facility] Annual Wellness Visit Medicare [facility] Annual Wellness Visit [facility] Start: 04-29-2024 End: 04-29-2024 Patient encounter procedure 04/29/2024 2:20 PM EST Office Visit Internal Medicine [place] [address] [place], [place] [id number] Minerva Shaver MD [address] [place], [place] [phone] april follow up after ablation procedure [facility] [place] Comment on above: april follow up after ablation proced ure Start: 04-22-2024 End: 04-22-2024 Ephys evl trnsptl tx atrial fib isolat pulm vein [facility] Start: 04-22-2024 End: 04-22-2024 Admission to same day surgery center 04/22/2024 8:15 AM EST - 04/22/2024 11:05 AM EST Surgery Cardiovascular Imaging Lab [facility] [address] [place] [phone] Alli Hernandez MD [address] [phone] ABLATION SCHED INTERCARDIAC A-FIB TRANSEPTAL BY PULM VE) Cardiovascular Imaging Lab [facility] Comment on above: ABLATION SCHED INTERCARDIAC A-FIB TRANSE PTAL BY PULM VE) Start: 04-22-2024 Subsequent hospital visit by physician 04/22/2024 8:15 AM EST Hospital Encounter [facility] [address] [place] [address] Alli Hernandez MD [address] [phone] Persistent atrial fibrillation [facility] Comment on above: Persistent atrial fibrillation Start: 04-21-2024 End: 04-21-2024 Patient encounter procedure [facility] Start: 04-20-2024 End: 04-20-2024 Telemedicine consultation with patient 04/20/2024 9:30 AM EST Telemedicine [facility] [address] [phone] [facility] Start: 04-12-2024 [facility] Start: 04-12-2024 [facility] Start: 04-02-2024 End: 04-02-2024 Patient encounter procedure 04/02/2024 10:00 AM EST Office Visit Internal Medicine [place] [address] [place] [address] Minerva Shaver MD [address] [place] [address] Medicare Wellness [facility] [place] Comment on above: Medicare Wellness Start: 03-31-2024 Annual PCP Team Chronic Disease Visit Annual PCP Team Chronic Disease Visit [facility] Start: 03-31-2024 BP Controlled (<130/80) BP Controlled (<130/80) [facility] Start: 03-31-2024 RSV Vaccine (1 - 1-dose 60+ series) RSV Vaccine (1 - 1-dose 60+ series) [facility] Comment on above: Postponed from 2007 (Declined at t his time) Start: 03-31-2024 RSV Vaccine (1 - 1-dose 75+ series) RSV Vaccine (1 - 1-dose 75+ series) [facility] Comment on above: Postponed from 2022 (Declined at t his time) Start: 03-17-2024 Annual PCP Team Chronic Disease Visit Annual PCP Team Chronic Disease Visit [facility] Start: 03-04-2024 Annual PCP Team Chronic Disease Visit Annual PCP Team Chronic Disease Visit [facility] Start: 02-11-2024 Annual PCP Team Chronic Disease Visit Annual PCP Team Chronic Disease Visit [facility] Start: 02-11-2024 Covid-19 Vaccine ( season) Covid-19 Vaccine ( season) [facility] Comment on above: Postponed from 01/10/2023 (Declined at t his time) Start: 02-11-2024 Covid-19 Vaccine (4 - Moderna series) Covid-19 Vaccine (4 - Moderna series) [facility] Comment on above: Postponed from 05/18/2021 (Declined at t his time) Start: 02-11-2024 Shingrix Vaccine (3 of 3) Shingrix Vaccine (3 of 3) [facility] Comment on above: Postponed from 11/14/2021 (Declined at t his time) Start: 02-11-2024 Urine microalbumin profile DTaP,Tdap,Td Vaccine (1 - Tdap) [facility] Comment on above: Postponed from 07/09/2018 (Declined at t his time) Start: 02-11-2024 Zoledronic acid therapy Alpha-1 Antitrypsin Deficiency Screening [facility] Comment on above: Postponed from 1977 (Declined at t his time) Start: 01-24-2024 Annual PCP Team Chronic Disease Visit Annual PCP Team Chronic Disease Visit [facility] Start: 01-11-2024 ANNUAL PCP TEAM CHRONIC DISEASE VISIT ANNUAL PCP TEAM CHRONIC DISEASE VISIT [facility] Start: 01-11-2024 Covid-19 Vaccine ( season) Covid-19 Vaccine () [facility] Start: 01-11-2024 Covid-19 Vaccine () Covid-19 Vaccine () [facility] Start: 01-11-2024 Influenza vaccination Influenza Vaccine (#1) [facility] Start: 01-04-2024 ANNUAL PCP TEAM CHRONIC DISEASE VISIT ANNUAL PCP TEAM CHRONIC DISEASE VISIT [facility] Start: 01-01-2024 End: 01-01-2024 Patient encounter procedure 01/01/2024 10:40 AM EDT Office Visit Internal Medicine [place] [address] [place] [address] Dianna Ballard APRN.BOLT SORTER [address] [place] [address] 3 month follow up- labs [facility] [place] Comment on above: 3 month follow up- labs Start: 12-29-2023 FECAL OCCULT BLOOD FECAL OCCULT BLOOD [facility] Start: 12-29-2023 Screening for malignant neoplasm of colon Fecal Occult Blood [facility] Start: 12-27-2023 ANNUAL PCP TEAM CHRONIC DISEASE VISIT ANNUAL PCP TEAM CHRONIC DISEASE VISIT [facility] Start: 12-15-2023 End: 12-15-2023 Patient encounter procedure 12/15/2023 9:30 AM EDT Office Visit Pulmonary Medicine [address] [place] [address] Laith Montes MD [address] [place] [address] 6 mth follow up Pulmonary Medicine Comment on above: 6 mth follow up Start: 12-15-2023 End: 12-15-2023 ambulatory 12/15/2023 9:00 AM EDT Procedure PULM LAB [facility] [address] [place] [address] Wstr, Pulm Lab [facility] [address] [place] [address] 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] PULM LAB [facility] Comment on above: Moderate COPD (chronic obstructive pulmo nary disease) (HCC) [J44.9] Start: 12-13-2023 ANNUAL PCP TEAM CHRONIC DISEASE VISIT ANNUAL PCP TEAM CHRONIC DISEASE VISIT [facility] Start: 11-01-2023 ANNUAL PCP TEAM CHRONIC DISEASE VISIT ANNUAL PCP TEAM CHRONIC DISEASE VISIT [facility] Start: 10-05-2023 ANNUAL PCP TEAM CHRONIC DISEASE VISIT ANNUAL PCP TEAM CHRONIC DISEASE VISIT [facility] Start: 09-29-2023 End: 12-29-2023 CBC panel - Blood by Automated count COMPLETE BLOOD COUNT Lab Routine Paroxysmal atrial fibrillation (HCC) Congestive heart failure, unspecified HF chronicity, unspecified heart failure type (HCC) Primary hypertension Expected: 09/29/2023, Expires: 12/29/2023 [facility] Comment on above: Expected: 09/29/2023, Expires: Start: 09-29-2023 End: 12-29-2023 Comprehensive metabolic 2000 panel - Serum or Plasma COMPREHENSIVE METABOLIC PANEL Lab Routine Paroxysmal atrial fibrillation (HCC) Congestive heart failure, unspecified HF chronicity, unspecified heart failure type (HCC) Primary hypertension Lipid screening Expected: 09/29/2023, Expires: 12/29/2023 [facility] Comment on above: Expected: 09/29/2023, Expires: Start: 09-29-2023 End: 12-29-2023 Lipid 1996 panel - Serum or Plasma LIPID PANEL BASIC Lab Routine Lipid screening Expected: 09/29/2023, Expires: 12/29/2023 [facility] Work Phone: Comment on above: Expected: 09/29/2023, Expires: 4 Start: 09-29-2023 End: 09-29-2023 Patient encounter procedure 09/29/2023 11:40 AM EDT Office Visit Internal Medicine [place] [address] [place] [address] Dianna Ballard APRN.BOLT SORTER [address] [place] [address] 3 month follow up [facility] [place] Comment on above: 3 month follow up Start: 09-05-2023 [facility] Start: 09-04-2023 BP CONTROLLED (<130/80) BP CONTROLLED (<130/80) [facility] Start: 08-30-2023 ANNUAL PCP TEAM CHRONIC DISEASE VISIT ANNUAL PCP TEAM CHRONIC DISEASE VISIT [facility] Start: 08-30-2023 BP CONTROLLED (<130/80) BP CONTROLLED (<130/80) [facility] Start: 07-19-2023 BP CONTROLLED (<130/80) BP CONTROLLED (<130/80) [facility] Start: 07-04-2023 Patient discharge [facility] Start: 06-30-2023 End: 09-29-2023 CBC panel - Blood by Automated count CBC Lab Routine Chronic congestive heart failure, unspecified heart failure type (HCC) Paroxysmal atrial fibrillation (HCC) History of CVA (cerebrovascular accident) Expected: 06/30/2023, Expires: 09/29/2023 [facility] Work Phone: Comment on above: Expected: 06/30/2023, Expires: 4 Start: 06-30-2023 End: 09-29-2023 Comprehensive metabolic 2000 panel - Serum or Plasma COMP METABOLIC PANEL Lab Routine Chronic congestive heart failure, unspecified heart failure type (HCC) Paroxysmal atrial fibrillation (HCC) History of CVA (cerebrovascular accident) Expected: 06/30/2023, Expires: 09/29/2023 [facility] Work Phone: Comment on above: Expected: 06/30/2023, Expires: 4 Start: 06-30-2023 End: 09-29-2023 Lipid 1996 panel - Serum or Plasma LIPID PANEL BASIC Lab Routine Chronic congestive heart failure, unspecified heart failure type (HCC) History of CVA (cerebrovascular accident) Expected: 06/30/2023, Expires: 09/29/2023 [facility] Work Phone: Comment on above: Expected: 06/30/2023, Expires: Start: 06-18-2023 ANNUAL PCP TEAM CHRONIC DISEASE VISIT ANNUAL PCP TEAM CHRONIC DISEASE VISIT [facility] Start: 06-08-2023 ANNUAL PCP TEAM CHRONIC DISEASE VISIT ANNUAL PCP TEAM CHRONIC DISEASE VISIT [facility] Start: 05-23-2023 BP CONTROLLED (<130/80) BP CONTROLLED (<130/80) [facility] Start: 05-22-2023 ANNUAL PCP TEAM CHRONIC DISEASE VISIT ANNUAL PCP TEAM CHRONIC DISEASE VISIT [facility] Start: 05-22-2023 BP CONTROLLED (<130/80) BP CONTROLLED (<130/80) [facility] Start: 05-15-2023 ANNUAL PCP TEAM CHRONIC DISEASE VISIT ANNUAL PCP TEAM CHRONIC DISEASE VISIT [facility] Start: 05-12-2023 Behavioral Health Screening Behavioral Health Screening [facility] Start: 04-29-2023 ANNUAL PCP TEAM CHRONIC DISEASE VISIT ANNUAL PCP TEAM CHRONIC DISEASE VISIT [facility] Start: 04-29-2023 BP CONTROLLED (<130/80) BP CONTROLLED (<130/80) [facility] Start: 04-26-2023 ANNUAL PCP TEAM CHRONIC DISEASE VISIT ANNUAL PCP TEAM CHRONIC DISEASE VISIT [facility] Start: 04-18-2023 ANNUAL PCP TEAM CHRONIC DISEASE VISIT ANNUAL PCP TEAM CHRONIC DISEASE VISIT [facility] Start: 03-18-2023 ANNUAL PCP TEAM CHRONIC DISEASE VISIT ANNUAL PCP TEAM CHRONIC DISEASE VISIT [facility] Start: 03-08-2023 ANNUAL PCP TEAM CHRONIC DISEASE VISIT ANNUAL PCP TEAM CHRONIC DISEASE VISIT [facility] Start: 02-22-2023 ANNUAL PCP TEAM CHRONIC DISEASE VISIT ANNUAL PCP TEAM CHRONIC DISEASE VISIT [facility] Start: 02-22-2023 BP CONTROLLED (<130/80) BP CONTROLLED (<130/80) [facility] Start: 01-21-2023 ANNUAL PCP TEAM CHRONIC DISEASE VISIT ANNUAL PCP TEAM CHRONIC DISEASE VISIT [facility] Start: 01-10-2023 Influenza vaccination [facility] Start: 01-03-2023 End: 03-05-2023 Basic metabolic 2000 panel - Serum or Plasma BASIC METABOLIC PNL Lab Routine Congestive heart failure, unspecified HF chronicity, unspecified heart failure type (HCC) Function kidney decreased Expected: 01/03/2023, Expires: 03/05/2023 [facility] Work Phone: Comment on above: Expected: 01/03/2023, Expires: 3 Start: 01-03-2023 End: 03-05-2023 CBC panel - Blood by Automated count CBC Lab Routine Congestive heart failure, unspecified HF chronicity, unspecified heart failure type (HCC) Function kidney decreased Expected: 01/03/2023, Expires: 03/05/2023 [facility] Work Phone: Comment on above: Expected: 01/03/2023, Expires: 3 Start: 01-02-2023 Patient discharge [facility] Start: 01-02-2023 [facility] Start: 01-01-2023 Physiotherapy of chest [facility] Start: 12-31-2022 Electrocardiographic procedure [facility] Start: 12-31-2022 Thyroid stimulating hormone measurement [facility] Start: 12-31-2022 [facility] Start: 12-31-2022 Following clinical pathway protocol [facility] Start: 12-31-2022 Application of elastic bandage [facility] Start: 12-31-2022 Assessment of risk of venous thromboembolism [facility] Start: 12-31-2022 Catheterization of vein [facility] Start: 12-31-2022 Elevation of affected extremity [facility] Start: 12-31-2022 Incentive spirometry [facility] Start: 12-31-2022 Insertion of catheter into peripheral vein [facility] Start: 12-31-2022 Legionella pneumophila Ag [Presence] in Urine [facility] Start: 12-31-2022 Measuring intake and output [facility] Start: 12-31-2022 Notification of physician [facility] Start: 12-31-2022 Oxygen therapy [facility] Start: 12-31-2022 Patient education [facility] Start: 12-31-2022 Providing care according to standard [facility] Start: 12-31-2022 Provision of activity privileges [facility] Start: 12-31-2022 Referral to occupational therapist [facility] Start: 12-31-2022 Referral to service [facility] Start: 12-31-2022 Respiratory therapy [facility] Start: 12-31-2022 Streptococcus pneumoniae antigen assay [facility] Start: 12-31-2022 Taking nasal swab [facility] Start: 12-31-2022 [facility] Start: 12-31-2022 Bacteria identified in Sputum by Culture [facility] Start: 12-31-2022 SARS-CoV-2 (COVID-19) Ag [Presence] in Respiratory specimen by Rapid immunoassay [facility] Start: 12-31-2022 Respiratory pathogens DNA and RNA panel - Respiratory specimen by NANI with probe detection [facility] Start: 12-31-2022 Verification routine [facility] Start: 12-31-2022 Admission procedure [facility] Start: 12-31-2022 Continuous pulse oximetry [facility] Start: 12-31-2022 Dual pressure spontaneous ventilation support [facility] Start: 12-24-2022 BP CONTROLLED (<130/80) BP CONTROLLED (<130/80) [facility] in Start: 12-03-2022 BP CONTROLLED (<130/80) BP CONTROLLED (<130/80) [facility] Start: 10-10-2022 ANNUAL PCP TEAM CHRONIC DISEASE VISIT ANNUAL PCP TEAM CHRONIC DISEASE VISIT [facility] Start: 08-11-2022 Patient discharge [facility] Start: 08-08-2022 Following clinical pathway protocol [facility] Start: 08-08-2022 Assessment of risk of venous thromboembolism [facility] Start: 08-08-2022 Cardiac monitoring [facility] Start: 08-08-2022 Catheterization of vein [facility] Start: 08-08-2022 Continuous pulse oximetry [facility] Start: 08-08-2022 Elevation of head of bed [facility] Start: 08-08-2022 Exercises [facility] Start: 08-08-2022 Implementation of planned interventions [facility] Start: 08-08-2022 Insertion of catheter into peripheral vein [facility] Start: 08-08-2022 Measuring intake and output [facility] Start: 08-08-2022 Notification of physician [facility] Start: 08-08-2022 Oxygen therapy [facility] Start: 08-08-2022 Patient referral to dietitian [facility] Start: 08-08-2022 Providing care according to standard [facility] Start: 08-08-2022 Provision of activity privileges [facility] Start: 08-08-2022 Referral to occupational therapist [facility] Start: 08-08-2022 Referral to service [facility] Start: 08-08-2022 Speech therapy assessment [facility] Start: 08-08-2022 Tobacco use cessation education [facility] Start: 08-08-2022 [facility] Start: 08-08-2022 Troponin I measurement [facility] Start: 08-08-2022 Admission procedure [facility] Start: 08-08-2022 Oxygen therapy [facility] Start: 08-08-2022 End: 08-08-2022 [facility] Start: 07-10-2022 ANNUAL PCP TEAM CHRONIC DISEASE VISIT ANNUAL PCP TEAM CHRONIC DISEASE VISIT [facility] Start: 07-10-2022 BP CONTROLLED (<130/80) BP CONTROLLED (<130/80) [facility] Start: 06-08-2022 End: 08-08-2022 25-hydroxyvitamin D3 [Mass/volume] in Serum or Plasma [facility] Work Phone: Comment on above: Expected: 06/08/2022, Expires: 3 Start: 06-08-2022 End: 08-08-2022 Amylase [Enzymatic activity/volume] in Serum or Plasma [facility] Work Phone: Comment on above: Expected: 06/08/2022, Expires: 3 Start: 06-08-2022 End: 08-08-2022 Cobalamin (Vitamin B12) [Mass/volume] in Serum or Plasma [facility] Work Phone: Comment on above: Expected: 06/08/2022, Expires: 3 Start: 06-08-2022 End: 08-08-2022 Lipase [Enzymatic activity/volume] in Serum or Plasma [facility] Work Phone: Comment on above: Expected: 06/08/2022, Expires: 3 Start: 06-08-2022 End: 08-08-2022 Urinalysis complete panel - Urine [facility] Work Phone: Comment on above: Expected: 06/08/2022, Expires: 3 Start: 2022 RSV Vaccine (1 - 1-dose 75+ series) RSV Vaccine (1 - 1-dose 75+ series) [facility] Start: 05-17-2022 End: 07-17-2022 Bacteria identified in Blood by Culture BLOOD CULTURE Microbiology Routine Fever, unspecified fever cause Expected: 05/17/2022, Expires: 07/17/2022 [facility] Work Phone: Comment on above: Expected: 05/17/2022, Expires: 3 Start: 05-12-2022 ADVANCE DIRECTIVE DISCUSSION ADVANCE DIRECTIVE DISCUSSION [facility] Start: 05-12-2022 DEPRESSION ASSESSMENT DEPRESSION ASSESSMENT [facility] Start: 04-30-2022 Adult depression screening assessment DEPRESSION SCREENING [facility] Start: 04-29-2022 End: 06-29-2022 CBC panel - Blood by Automated count [facility] Work Phone: Comment on above: Expected: 04/29/2022, Expires: 3 Start: 04-29-2022 End: 06-29-2022 Comprehensive metabolic 2000 panel - Serum or Plasma [facility] Work Phone: Comment on above: Expected: 04/29/2022, Expires: 3 Start: 04-27-2022 [facility] Start: 01-21-2022 End: 03-23-2022 Bacteria identified in Urine by Culture [facility] Work Phone: Comment on above: Expected: 01/21/2022, Expires: 2 Start: 01-10-2022 Influenza vaccination INFLUENZA (#1) [facility] Start: 11-14-2021 Administration of herpes zoster vaccine Zoster Vaccines (3 of 3) [facility] Start: 11-14-2021 SHINGRIX VACCINE (3 of 3) SHINGRIX VACCINE (3 of 3) [facility] Start: 11-14-2021 Zoster vaccine hzv live for subcutaneous use ZOSTER (SHINGLES) VACCINE (3 of 3) [facility] Start: 07-21-2021 COVID-19 VACCINE (4 - Booster for Moderna series) COVID-19 VACCINE (4 - Booster for Moderna series) [facility] Start: 05-18-2021 COVID-19 VACCINE (4 - Booster for Moderna series) COVID-19 VACCINE (4 - Booster for Moderna series) [facility] Start: 05-18-2021 COVID-19 VACCINE (4 - Moderna series) COVID-19 VACCINE (4 - Moderna series) [facility] Start: 05-12-2021 ADVANCE DIRECTIVE DISCUSSION ADVANCE DIRECTIVE DISCUSSION [facility] Start: 05-12-2021 DEPRESSION ASSESSMENT DEPRESSION ASSESSMENT [facility] Start: 01-15-2020 Mammography MAMMOGRAM [facility] Start: 01-15-2020 Screening for malignant neoplasm of breast MAMMOGRAM SCREENING DISCUSSION [facility] Start: 07-09-2018 Urine [facility]albumin profile [facility] Start: 11-21-2017 Colonoscopy COLONOSCOPY [facility] Start: 11-21-2017 COLORECTAL CANCER SCREENING COLORECTAL CANCER SCREENING [facility] Start: 11-21-2016 Screening for malignant neoplasm of colon COLORECTAL CANCER SCREENING DISCUSSION [facility] Start: 04-10-2016 Screening for malignant neoplasm of colon Fecal occult blood test (FOBT,FIT) [facility] Start: 04-07-2016 FECAL OCCULT BLOOD FECAL OCCULT BLOOD [facility] Start: 2012 Fall risk assessment Falls Risk Assessment [facility] Start: 02-19-2011 SHINGRIX VACCINE (2 of 3) SHINGRIX VACCINE (2 of 3) [facility] Start: 10-15-2010 Hepatitis B vaccination HEP B VACCINE (3 of 3 - 19+ 3-dose series) [facility] Start: 2007 RSV Vaccine (1 - 1-dose 60+ series) RSV Vaccine (1 - 1-dose 60+ series) [facility] Start: 1997 Screening for malignant neoplasm of colon Flexible sigmoidoscopy [facility] Start: 1992 COLOGUARD (FIT-DNA) COLOGUARD (FIT-DNA) [facility] Start: [address] COLONOGRAPHY [facility] Start: 1992 Screening for malignant neoplasm of colon [facility] Start: 1992 SIGMOIDOSCOPY SIGMOIDOSCOPY [facility] Start: 1987 Screening for malignant neoplasm of breast Mammogram [facility] Start: 1977 Zoledronic acid therapy ALPHA-1 ANTITRYPSIN DEFICIENCY SCREENING [facility] Start: 1968 Screening for malignant neoplasm of cervix CERVICAL CANCER SCREENING DISCUSSION [facility] Start: 1965 Anxiety Screening Anxiety Screening [facility] Start: 1965 BP CONTROLLED (<130/80) BP CONTROLLED (<130/80) [facility] Start: 1965 Depression Screening Depression Screening [facility] Start: 1965 Hepatitis C screening Hepatitis C Screening [facility] Start: 1965 SPIROMETRY SPIROMETRY [facility] Start: 1959 Depression screening using PHQ-9 (Patient Health Questionnaire 9) score Depression Screening (PHQ-2/9) [facility] Start: 1950 History and physical examination, annual for health maintenance Wellness Visit [facility] Start: 1947 Hepatitis C screening HEPATITIS C VIRUS SCREENING [facility] Start: 1947 Screening for malignant neoplasm of colon [facility] Start: 1947 Screening for osteoporosis [facility] Alanine aminotransfe rase [Enzymatic activity/volume] in Serum or Plasma [facility] Albumin [Mass/volume ] in Serum or Plasma [facility] Alkaline phosphatase [Enzymatic activity/volume] in Serum or Plasma [facility] Anion gap measurement [facility] Aspartate aminotrans ferase [Enzymatic activity/volume] in Serum or Plasma [facility] Bacteria identified in Urine by Culture URINE CULTURE Microbiology Routine Chills 06/08/2022 11:55 AM EST [facility] Work Phone: Bacteria identified in Urine by Culture BACTERIAL CULTURE, URINE Microbiology Routine Other fatigue Foul smelling urine 12/10/2024 10:33 AM EDT [facility] Work Phone: Bacteria identified in Urine by Culture BACTERIAL CULTURE, URINE Microbiology Routine Urinary tract infection with hematuria, site unspecified 01/07/2025 11:03 AM EDT [facility] Bilirubin, total measurement [facility] BUN/Creatinine ratio [facility] Calcium [Mass/volume ] in Serum or Plasma [facility] Carbon dioxide, tota l [Moles/volume] in Serum or Plasma [facility] Chloride [Moles/volu me] in Serum or Plasma [facility] Clostridioides diffi cile toxin genes [Presence] in Stool by NANI with probe detection C. DIFFICILE PCR Lab Routine Right lower quadrant abdominal pain Left lower quadrant abdominal pain Blood in stool Bowel habit changes Stool mucus Dark stools Ordered: 12/26/2022 [facility] Work Phone: Comment on above: Ordered: 12/26/2022 COVID & INFLUENZA A/ B & RSV PCR, ROUTINE COVID & INFLUENZA A/B & RSV PCR, ROUTINE Microbiology Routine Acute cough Ordered: 06/22/2024 [facility] Work Phone: Comment on above: Ordered: 06/22/2024 Creatinine [Moles/vo lume] in Serum or Plasma [facility] End: 06-22-2023 Ct abdomen & pelvis w/o contrast material CT ABD/PEL WO IVCON Radiology Routine Hiatal hernia with GERD without esophagitis Personal history of colonic polyps 1 Occurrences starting 05/23/2022 until 06/22/2023 [facility] Work Phone: Comment on above: 1 Occurrences starting 05/23/2022 until 06/22/2023 End: 07-22-2025 CT Chest WO contrast CT CHEST WO IVCON Radiology Routine Lung nodules Centrilobular emphysema (HCC) Former cigarette smoker 1 Occurrences starting 06/22/2024 until 07/22/2025 [facility] Work Phone: Comment on above: 1 Occurrences starting 06/22/2024 until 07/22/2025 CT Chest WO contrast CT CHEST WO IVCON Radiology Routine Lung nodules Centrilobular emphysema (HCC) Former cigarette smoker 07/06/2024 12:18 PM EST [facility] Work Phone: End: 01-24-2024 ECG COMPLETE ECG COMPLETE ECG Routine Atrial fibrillation, unspecified type (HCC) Bradycardia 1 Occurrences starting 01/23/2023 until 01/24/2024 [facility] Work Phone: Comment on above: 1 Occurrences starting 01/23/2023 until 01/24/2024 End: 05-23-2023 EGD DIAGNOSTIC EGD DIAGNOSTIC Endoscopy Routine Hiatal hernia with GERD without esophagitis Personal history of colonic polyps 1 Occurrences starting 05/23/2022 until 05/23/2023 [facility] Work Phone: Comment on above: 1 Occurrences starting 05/23/2022 until 05/23/2023 Electrophysiology study EP PROCE DURE - EPS/ABLATION/DEVICE Electrophysiology Routine Persistent atrial fibrillation 04/22/2024 10:30 AM [facility] BACT[facility] PA ERIC BY PCR ENTERIC BACTERIAL PANEL BY PCR Lab Routine Right lower quadrant abdominal pain Left lower quadrant abdominal pain Blood in stool Bowel habit changes Stool mucus Dark stools Ordered: 12/26/2022 [facility] Work Phone: Comment on above: Ordered: 12/26/2022 External electrode cardioversion EP CARDIOVERSION EXTERNAL Electrophysiology Routine Persistent atrial fibrillation 04/22/2024 10:30 AM [facility] FECAL LACTOFERRIN/LEUKOCYTES FECAL LACTOFERRIN/LEUKOCYTES Lab Routine Right lower quadrant abdominal pain Left lower quadrant abdominal pain Blood in stool Bowel habit changes Stool mucus Dark stools Ordered: 12/26/2022 [facility] Work Phone: Comment on above: Ordered: 12/26/2022 Glucose [Mass/volume ] in Serum or Plasma [facility] Hematocrit [Volume Fraction] of Blood [facility] Hemoglobin [Mass/vol ume] in Blood [facility] Hemoglobin.gastroint estinal .lower [Presence] in Stool by Immunoassay FECAL OCCULT BLOOD TEST Lab Routine Right lower quadrant abdominal pain Left lower quadrant abdominal pain Blood in stool Bowel habit changes Stool mucus Dark stools Ordered: 12/26/2022 [facility] Work Phone: Comment on above: Ordered: 12/26/2022 Influenza virus A an d B RNA and SARS-CoV-2 (COVID-19) N gene panel - Respiratory specimen by NANI with probe detection COVID WITH FLUA+B, ROUTINE Microbiology Routine Sore throat Chills with fever 02/22/2022 3:21 PM EDT [facility] Work Phone: End: 10-07-2024 Interrogation of cardiac pacemaker PACEMAKER/ICD INTERROGATION Cardiac Services Routine One Time for 1 Occurrences starting 10/07/2024 until 10/07/2024 [facility] Comment on above: One Time for 1 Occurrences starting 09/10 until 10/07/2024 Leukocytes [#/volume ] in Blood [facility] Magnesium [Mass/volu me] in Serum or Plasma [facility] Mean corpuscular hem oglobin concentration determination [facility] Mean corpuscular hem oglobin determination [facility] Measurement of renal function [facility] MR Lumbar spine [facility] Neutrophil count [facility] Neutrophil percent differential count [facility] OXIMETRY - NOCTURNAL OXIMETRY - NOCTURNAL Procedures Routine Stage 3 severe COPD by GOLD classification ([facility]) Ordered: 01/27/2023 [facility] Work Phone: Comment on above: Ordered: 01/27/2023 Patient Education [facility] Work Phone: Patient referral [facility] Work Phone: Platelets [#/volume] in Blood [facility] Potassium [Moles/vol ume] in Serum or Plasma [facility] End: 09-04-2023 PVR LEG W/EXC [facility] PVR LEG W/EXC [facility] Vascular Lab Routine Peripheral arterial disease (HCC) 1 Occurrences starting 09/03/2022 until 09/04/2023 [facility] Work Phone: Comment on above: 1 Occurrences starting 09/03/2022 until 09/04/2023 End: 05-29-2023 Radiologic exam swallow function contrast study XR MODIFIED BARIUM SWALLOW W SPEECH THERAPY Radiology Routine Hiatal hernia with GERD without esophagitis 1 Occurrences starting 04/29/2022 until 05/29/2023 [facility] Work Phone: Comment on above: 1 Occurrences starting 04/29/2022 until 05/29/2023 Radionuclide imaging of perfusion of myocardium under exercise stress [facility] Work Phone: RAPID STREP TEST B/O RAPID STREP TEST B/O Lab Routine Fever, unspecified fever cause Sore throat Ordered: 12/12/2022 [facility] Work Phone: Comment on above: Ordered: 12/12/2022 Red blood cell count [facility] Red cell distributio n width determination [facility] SARS-CoV-2 (COVID-19 ) RNA [Presence] in Respiratory specimen by NANI with probe detection 2019 CORONAVIRUS Microbiology Routine Sore throat Chills with fever Ordered: 02/22/2022 [facility] Work Phone: Comment on above: Ordered: 02/22/2022 End: 05-23-2023 Screening colonoscopy COLONOSCOPY SCREENING Endoscopy Routine Hiatal hernia with GERD without esophagitis Personal history of colonic polyps 1 Occurrences starting 05/23/2022 until 05/23/2023 [facility] Work Phone: Comment on above: 1 Occurrences starting 05/23/2022 until 05/23/2023 End: 12-07-2022 Screening mammography bi 2-view breast inc cad CLARIBEL SCREENING Radiology Routine Encounter for screening mammogram for breast cancer 1 Occurrences starting 11/07/2021 until 12/07/2022 [facility] Work Phone: Comment on above: 1 Occurrences starting 11/07/2021 until 12/07/2022 Sodium [Moles/volume ] in Serum or Plasma [facility] SPIROMETRY WITH DILA TOR IF OBSTRUCTED SPIROMETRY WITH DILATOR IF OBSTRUCTED PFT Routine Moderate COPD (chronic obstructive pulmonary disease) (HCC) 12/15/2023 9:02 AM EDT [facility] Work Phone: End: 10-01-2024 Standard ECG ECG ECG Routine One Time for 1 Occurrences starting 10/01/2024 until 10/01/2024 [facility] Comment on above: One Time for 1 Occurrences starting 09/10 until 10/01/2024 SURGICAL PATHOLOGY [facility] Work Phone: Comment on above: Release Upon Ordering for 1 Occurrences starting 08/18/2023, 1 completed Total protein measurement [facility] UA DIP, URINE (POC) UA DIP, URIN E (POC) Lab Routine Urinary tract infection with hematuria, site unspecified Ordered: 01/07/2025 [facility] Work Phone: Comment on above: Ordered: 01/07/2025 Urea nitrogen [Mass/ volume] in Serum or Plasma [facility] End: 05-30-2023 Us abdominal real time w/image limited US ABD RT UPPER QUADRANT Radiology Routine Elevated LFTs 1 Occurrences starting 04/30/2022 until 05/30/2023 [facility] Work Phone: Comment on above: 1 Occurrences starting 04/30/2022 until 05/30/2023 Heart [facility] US Heart limited [facility] End: 12-27-2021 transvaginal [facility] Work Phone: Comment on above: 1 Occurrences starting 12/27/2021 until 12/27/2021 [facility] Immunizations Immunization Date Immunization Notes Care Provider [facility] 02-21-2024 influenza, high dose seasonal, preservative-free Immunization [place] Work Phone: [facility] 02-21-2024 influenza virus vaccine, unspecified formulation Minerva Shaver MD Work Phone: [facility] 09-05-2023 tetanus toxoid, redu gisell diphtheria toxoid, and acellular pertussis vaccine, adsorbed Dr. Minerva Shaver Work Phone: [facility] 02-10-2023 influenza (HD-IIV4) vaccine, age 65+ yr, high dose, quadrivalent, PF (FLUZONE HIGH-DOSE) Dianna Older [employer] Work Phone: [facility] 02-10-2023 influenza virus vaccine, unspecified formulation [facility]m [facility] Work Phone: [facility] 01-21-2022 Influenza, high dose seasonal Dr. Minerva Shaver MD Work Phone: [facility] 01-21-2022 influenza, high dose seasonal, preservative-free Dr. Minerva Shaver Work Phone: [facility] 01-21-2022 influenza, high-dose , quadrivalent vaccine (FLUZONE HIGH DOSE QUADRIVALENT) Minerva Shaver MD Work Phone: [facility] Work Phone: 01-21-2022 influenza virus vaccine, unspecified formulation Dianna Older [employer] Work Phone: [facility] 09-19-2021 zoster vaccine recombinant Lindsay Zee MD Work Phone: [facility] 09-19-2021 zoster vaccine, unspecified formulation Toña Persaud MD Work Phone: [facility] 03-23-2021 Covid (Moderna) Dr. Minerva ash Work Phone: [facility] 02-03-2021 influenza, high-dose , quadrivalent vaccine (FLUZONE HIGH DOSE QUADRIVALENT) Idanna Older [employer] Work Phone: [facility] 06-13-2020 COVID-19 vaccine, fu ll dose (MODERNA) Dianna Older [employer] Work Phone: [facility] Work Phone: 05-16-2020 COVID-19 vaccine, fu ll dose (MODERNA) Dianna Older [employer] Work Phone: [facility] Work Phone: 03-04-2020 influenza, high-dose , quadrivalent vaccine (FLUZONE HIGH DOSE QUADRIVALENT) Dianna Older [employer] Work Phone: [facility] Work Phone: 02-12-2019 influenza, high dose seasonal, preservative-free Dianna Older [employer] Work Phone: [facility] 07-08-2018 tetanus and diphther ia toxoids, adsorbed, preservative free, for adult use (5 Lf of tetanus toxoid and 2 Lf of diphtheria toxoid) Dianna Older [employer] Work Phone: [facility] Work Phone: 01-23-2018 influenza, high dose seasonal, preservative-free Dianna Older [employer] Work Phone: [facility] Work Phone: 02-03-2016 influenza, high dose seasonal, preservative-free Dianna Older [employer] Work Phone: [facility] 04-28-2015 pneumococcal conjuga te vaccine, 13 valent Dianna Older [employer] Work Phone: [facility] 03-06-2015 influenza, injectabl e, quadrivalent, preservative free Dr. Minerva Shaver Work Phone: [facility] 03-06-2015 influenza, seasonal, injectable Dr. Minerva Shaver Work Phone: [facility] 02-18-2015 influenza, high dose seasonal, preservative-free Dianna Older [employer] Work Phone: [facility] Work Phone: 02-23-2014 influenza, seasonal, injectable Dianna Older [employer] Work Phone: [facility] 12-30-2013 pneumococcal polysaccharide vaccine, 23 valent Dianna Older [employer] Work Phone: [facility] 03-06-2013 influenza virus vaccine, unspecified formulation Dianna Older [employer] Work Phone: [facility] Work Phone: 02-29-2012 influenza virus vaccine, unspecified formulation Dianna Older [employer] Work Phone: [facility] Work Phone: 03-12-2011 influenza virus vaccine, unspecified formulation Dianna Older [employer] Work Phone: [facility] 12-25-2010 zoster vaccine, live Dianna Old er [employer] Work Phone: [facility] 08-20-2010 hepatitis B vaccine, adult dosage Dianna Older RADI[employer] Work Phone: [facility] 03-01-2010 influenza virus vaccine, unspecified formulation Dianna Older [employer] Work Phone: [facility] Work Phone: 02-19-2010 hepatitis B vaccine, adult dosage Dianna Older [employer] Work Phone: [facility] Work Phone: 01-02-2010 hepatitis B immune globulin Dianna Older [employer] Work Phone: [facility] 02-15-2009 influenza virus vaccine, unspecified formulation Dianna Older [employer] Work Phone: [facility] Work Phone: 03-16-2008 influenza virus vaccine, unspecified formulation Dianna Older [employer] Work Phone: [facility] 03-26-2007 influenza virus vaccine, unspecified formulation Dianna Older [employer] Work Phone: [facility] Work Phone: 03-26-2007 pneumococcal polysaccharide vaccine, 23 valent Dianna Older [employer] Work Phone: [facility] Work Phone: 07-16-2006 tetanus and diphther ia toxoids, adsorbed, preservative free, for adult use (2 Lf of tetanus toxoid and 2 Lf of diphtheria toxoid) Dianna Older [employer] Work Phone: [facility] Payers Date Payer Category Payer Self-pay [id number] 2023 Managed Care (unspecified) [employer] [id number] 2022 Medicare [id number] 2022 Medicare (Managed Care) [id number] 2022 Private Health Insurance [id number] 2022 Private Health Insurance [id number] 2022 Unknown [id number] 2020 Unknown MMO MMO TPA [id number] 2020-Present [address] [place] [address] PPO [id number] 2020 Unknown ANTHEM BLUE CROS S AND BLUE SHIELD ANTHEM MEDIBLUE HMO [id number] 2020-Present [phone] [address] [place] [address] [facility] [place] [id number] 2020 Unknown [id number] 2016 Medicare [id number] 1945 Unknown [id number] 2.16.840.1.580405.3.579.2. 903 1945 Unknown [id number] 2.16.840.1.761907.3.579.2. 903 1945 Unknown [id number] 2.16.840.1.153646.3.579.2. 594 1945 Unknown [id number] 2.16.840.1.141708.3.579.2. 594 1945 Unknown [id number] 2.16.840.1.208652.3.579.2. 594 1945 Unknown [id number] 2.16.840.1.346144.3.579.2. 594 1945 Unknown [id number] 2.16.840.1.780635.3.579.2. 594 1945 Unknown [id number] 2.16.840.1.146565.3.579.2. 594 1945 Unknown [id number] 2.16.840.1.524646.3.579.2. 594 1945 Unknown [id number] 2.16.840.1.420154.3.579.2. 594 1945 Unknown [id number] 2.16.840.1.031493.3.579.2. 594 1945 Unknown [id number] 2.16.840.1.628522.3.579.2. 594 Medicare [id number] Medicare [id number] Unknown [id number] Unknown [id number] Unknown [id number] 2.16.840.1.015118.3.579.2. 462 Unknown [id number] 2.16.840.1.754187.3.579.2. 462 Unknown [id number] 2.16.840.1.797071.3.579.2. 462 Unknown [id number] 2.16.840.1.989015.3.579.2. 462 Unknown [id number] 2.16.840.1.820224.3.579.2. 462 Unknown [id number] 2.16.840.1.257232.3.579.2. 462 Unknown [id number] 2.16.840.1.474008.3.579.2. 462 Unknown [id number] 2.16.840.1.719449.3.579.2. 462 Unknown [id number] 2.16.840.1.117910.3.579.2. 462 Unknown [id number] 2.16.840.1.626678.3.579.2. 462 Unknown [id number] 2.16.840.1.994993.3.579.2. 462 Unknown [id number] 2.16.840.1.226960.3.579.2. 462 Unknown [id number] 2.16.840.1.895049.3.579.2. 462 Unknown [id number] 2.16.840.1.273176.3.579.2. 462 Unknown [id number] 2.16.840.1.935972.3.579.2. 462 Unknown [id number] 2.16.840.1.859050.3.579.2. 462 Unknown [id number] 2.16.840.1.954433.3.579.2. 462 Unknown [id number] 2.16.840.1.747250.3.579.2. 462 Unknown [id number] 2.16840.1.403023.3.579.2. 462 Unknown [id number] 2.840.1.009575.3.579.2. 462 Unknown [id number] 2.840.1.472646.3.579.2. 462 Unknown [id number] 2.840.1.797704.3.579.2. 462 Unknown [id number] 2.840.1.781313.3.579.2. 462 Unknown [id number] 2.840.1.099766.3.579.2. 462 Unknown [id number] 2.840.1.555568.3.579.2. 462 Unknown [id number] 2.840.1.185490.3.579.2. 462 Unknown [id number] 2..840.1.979853.3.579.2. 462 Unknown [id number] 2.840.1.334059.3.579.2. 462 Unknown [id number] 2.840.1.415466.3.579.2. 462 Unknown [id number] 2.840.1.765326.3.579.2. 462 Unknown [id number] 2.16.840.1.525020.3.579.2. 462 Unknown [id number] 2.16.840.1.802812.3.579.2. 462 Unknown [id number] 2.16.840.1.537032.3.579.2. 462 Unknown [id number] 2.16.840.1.690191.3.579.2. 462 Unknown [id number] 2.16.840.1.991920.3.579.2. 462 Unknown [id number] 2.16.840.1.816444.3.579.2. 462 Unknown [id number] 2.16.840.1.939245.3.579.2. 462 Unknown [id number] 2.16.840.1.713631.3.579.2. 462 Unknown [id number] 2.16.840.1.673345.3.579.2. 462 Social History Date Type Detail Facility Start: 12-24-2021 End: 10-22-2024 Tobacco smoking status NHIS Ex-smoker [facility] Work Phone: Start: 11-09-1970 End: 11-09-2005 History of tobacco use Current smoker [facility] Work Phone: Start: 11-09-1970 End: 11-09-2005 History of tobacco use Cigarette Smoker [facility] Work Phone: Start: 06-05-2020 End: 07-10-2021 Alcohol intake Current drinker of alcohol (finding) [facility] Start: 06-27-2021 End: 02-22-2022 History SDOH Alcohol Frequency 1 [facility] Start: 07-05-2013 History SDOH Alcohol Comment mixed drink in p.m. [facility] Start: 06-27-2021 End: 04-15-2022 History SDOH Social Connections Phone 5 [facility] Start: 06-27-2021 End: 04-15-2022 History SDOH Social Connections Get Together 4 [facility] Start: 06-27-2021 End: 04-15-2022 History SDOH Social Connections Membership 2 [facility] Start: 06-27-2021 End: 04-15-2022 History SDOH Physical Activity MPS 15 [facility] Start: 1945 Sex Assigned At Female [facility] Start: 05-06-2020 End: 09-13-2022 Exposure to SARS-CoV-2 (event) Not sure [facility] Start: 12-24-2021 End: 09-26-2022 Cigarettes smoked current (pack per day) - Reported 2 [facility] Start: 12-24-2021 End: 06-17-2024 Tobacco use and exposure Smokeless tobacco non-user [facility] Start: 12-24-2021 End: 07-22-2024 Alcohol intake Ex-drinker (finding) [facility] Start: 12-24-2021 Tobacco Comment Stopped smoking 12/29 05 [facility] Start: 12-21-2021 End: 09-05-2023 Tobacco smoking status NHIS Unknown if ever smoked [facility] Start: 10-12-2016 None [facility] Start: 10-31-2018 Alone [facility] Start: 06-15-2020 Non-smoker [facility] Start: 04-15-2022 History SDOH Alcohol Std Drinks 0 [facility] Start: 1945 Sex Assigned At Not on file [facility] Start: 04-15-2022 End: 09-26-2022 Gender identity Not on file [facility] Start: 09-13-2022 Tobacco smoking stat us NHIS Never smoked tobacco [facility] Start: 09-13-2022 Alcohol intake Lifetime non-d tristan (finding) [facility] Do you belong to any clubs or organizations such as anabaptism groups, unions, fraternal or athletic groups, or school groups? No [facility] Are you now , , , , never or living with a partner? [facility] Start: 04-12-2012 Frequency of Alcohol Consumption Not on file [facility] How often do you hav e 6 or more drinks on 1 occasion? Never [facility] Do you feel stress - tense, restless, nervous, or anxious, or unable to sleep at night because your mind is troubled all the time - these days [OSQ] Only a little [facility] (I/We) worried wheth er (my/our) food would run out before (I/we) got money to buy more. Never true [facility] Start: 03-02-2020 Gender identity Identifies as female gender (finding) [facility] Start: 03-02-2020 Sexual orientation Heterosexual (parris germain) [facility] Do you feel stress - tense, restless, nervous, or anxious, or unable to sleep at night because your mind is troubled all the time - these days [OSQ] Not at all [facility] Start: 05-23-2015 End: 08-01-2024 Sex Female (finding) [facility] NEGATED: Highlighted rowStart: NINF History of tobacco use Passive smoker [facility] NEGATED: Highlighted row Not [facility] Medical Equipment Procedure Code Equipment Code Equipment Origin al Text Equipment Identifier Dates Lead Pacing 69cm Atrium Ventricle Select[employer] Bipolar Fixed - [id number] Start: 10-07-2024 Cardiac pacemaker, device (physical object) ([id number]) Pacemaker 7.4mm Calvin Xt Sr Ti Poly Kitty 50.8x42.6mm Crd 22.5 - [id number] Start: 10-07-2024 Goals Date Patient Goal Desired Activity /State Functional Status Date Assessment Result Facility 10-01-2024 Are you deaf, or do you have serious difficulty hearing No 10/01/2024 8:00 PM June Joshua, NINI No [facility] 10-01-2024 Are you blind, or do you have serious difficulty seeing, even when wearing glasses No 10/01/2024 8:00 PM June Joshua, NINI No [facility] 10-01-2024 Do you have serious difficulty walking or climbing stairs Yes 10/01/2024 8:00 PM June Joshua, NINI Yes [facility] 10-01-2024 Do you have difficul ty dressing or bathing No 10/01/2024 8:00 PM June Joshua, NINI No [facility] 10-01-2024 Because of a physica l, mental, or emotional condition, do you have difficulty doing errands alone such as visiting a physician's office or shopping No 10/01/2024 8:00 PM June Joshua, NINI No [facility] 06-22-2024 Total score [AUDIT-C] 0 06/22/19 25 12:30 PM EST Cristiano Bolivar [facility] 02-11-2025 Within the last year , have you been humiliated or emotionally abused in other ways by your partner or ex-partner? No 06/22/2024 12:30 PM EST User, [email or web address] No [facility] 06-22-2024 Within the last year , have you been afraid of your partner or ex-partner? No 06/22/2024 12:30 PM EST User, [email or web address] No [facility] 06-22-2024 Within the last year , have you been raped or forced to have any kind of sexual activity by your partner or ex-partner? No 06/22/2024 12:30 PM EST User, [email or web address] No [facility] 06-22-2024 Within the last year , have you been kicked, hit, slapped, or otherwise physically hurt by your partner or ex-partner? No 06/22/2024 12:30 PM EST User, [email or web address] No [facility] 06-22-2024 How often to you hav e a drink containing alcohol? Never 06/22/2024 12:30 PM EST User, [email or web address] Never [facility] 06-22-2024 Functional status Patient does n ot drink 06/22/2024 12:30 PM EST User, [email or web address] Patient does not drink [facility] 06-22-2024 How often do you hav e 6 or more drinks on 1 occasion? Never 06/22/2024 12:30 PM EST User, [email or web address] Never [facility] 01-02-2023 Functional status Ambulates [facility] Work Phone: 08-11-2022 Functional status Chair [facility] Work Phone: 08-11-2022 Functional status None [facility] Work Phone: 08-11-2022 Functional status Activity Abili ty Independent [facility] Work Phone: 08-10-2022 Functional status Chair [facility] Work Phone: 08-19-2014 Are you deaf, or do you have serious difficulty hearing No 08/19/2014 8:51 AM Misti Du RN No [facility] 08-19-2014 Are you blind, or do you have serious difficulty seeing, even when wearing glasses No 08/19/2014 8:51 AM Misti Du RN No [facility] 08-19-2014 Do you have serious difficulty walking or climbing stairs No 08/19/2014 8:51 AM Misti Du RN No [facility] 08-19-2014 Do you have difficul ty dressing or bathing No 08/19/2014 8:51 AM Misti Du RN No [facility] 08-19-2014 Because of a physica l, mental, or emotional condition, do you have difficulty doing errands alone such as visiting a physician's office or shopping No 08/19/2014 8:51 AM Misti Du RN No [facility] Mental Status Date Assessment Result Facility 10-25-2024 Cognitive function Voice/Name [facility] Work Phone: 10-01-2024 Because of a physica l, mental, or emotional condition, do you have serious difficulty concentrating, remembering, or making decisions No 10/01/2024 8:00 PM June Joshua, NINI No [facility] 07-31-2024 Cognitive function Voice/Name [facility] Work Phone: 05-25-2024 Cognitive function Voice/Name [facility] Work Phone: 01-02-2023 Cognitive function Voice/Name [facility] Work Phone: 08-11-2022 [facility]: 08-11-2022 Cognitive function Voice/Name [facility] Work Phone: 08-10-2022 Cognitive function [facility]: 08-10-2022 Cognitive function Arousable To Voice/Nam e [facility] Work Phone: 04-27-2022 Cognitive function Level Of Cons ciousness Awake;Alert;Appropriate;Fol lows Commands [facility] Work Phone: 08-19-2014 Because of a physica l, mental, or emotional condition, do you have serious difficulty concentrating, remembering, or making decisions No 08/19/2014 8:51 AM EDT Misti Horvath RN No [facility] Clinical Notes 11-22-2015 to 02-21-2025 Telephone Encounter - Tasha, JOHNATHAN Nolen - 01/13/2025 9:54 AM EDTTelephone Encounter - Tamanna Cordova MA - 01/13/2025 9:54 AM EDTTelephone Encounter - Dianna Ballard APRN.CNP - 01/12/2025 6:35 PM EDT Note Date & Type Note Facility 02-21-2025 Note HNO ID: [id number] Author: DIANNA BALLARD APRN.ANITHA Service: ? Author Type: Nurse Practitioner Type: Progress Notes Filed: 02/21/2025 16:05 Note Text: CC: Patient presents with: Recheck: Follow up, edema HPI Elizabeth Persaud is a 79 year old female who presents today for follow up but also noticing some dark urine. Recording using Binpress software for draft documentation of the visit was discussed with the patient/authorized direct marketing representative; all questions welcomed and answered. Patient/authorized direct marketing representative agreed to proceed Elizabeth Persuad is a 79-year-old female with a history of CHF, DM, and atrial fibrillation, presenting for follow-up of a pacemaker site swelling, fatigue, and bruising on toes. Pacemaker Site Swelling: - Noted mild swelling near pacemaker site. - Denies erythema, fever, chills, or pain. - No increase in size of swelling. - Recent ultrasound showed no abnormalities or fluid collection. Pacemaker clinic without concern Fatigue: - Persistent fatigue since pacemaker insertion. - Sleeping 8-9 hours per night, with 2-3 nocturnal awakenings. - Denies abdominal pain, fever, chills, or dysuria. - Recent urinalysis showed glucose, trace bilirubin, and trace WBCs; urine culture was normal. - Recent labs showed normal thyroid function, B12, liver enzymes, kidney function, electrolytes, and magnesium levels. Bruising on Toes: - Intermittent bruising on toes, not associated with pain. - Bruising appears below toes and can be seen between them. - Denies trauma or injury to the area. - Wears extra wide Churchill shoes at home, which do not come near the toes. - says the bruising comes and then will be gone for a month or so and then reappear. HTN and CHF: - Managed with Lasix once daily. - Reports weight loss and dietary changes, primarily consuming meat and eggs. - Noted episodes of hypotension, with a recent reading of 98/67 mmHg. - Home blood pressure readings usually around 117/78 mmHg. - Taking metoprolol 50 mg BID. - Kidney protection with jardiance. Recent glucose level was 72 mg/dL. - History of hypoglycemia diagnosed 30-40 years ago. REVIEW OF SYSTEMS See HPI PAST MEDICAL [...] left Dr. Manuel Hoover - Dr. Alessio Welch PAST SURGICAL HISTORY OF NECK SURGERY, anterior [...] YRS/> REDUCIBLE 07/17/2010 Hernia repair, umbilical >5yr [facility] Dr Manuel Hoover SHX COSMETIC SURGERY SKIN BIOPSY HX ALLERGIES Cardizem [Diltiazem Hcl], Codeine, Entex [Phenylephrine-Guaifenesin], Etodolac, Meloxicam, Naproxen, Tape [Adhesive Tape (Rosins)], Trazodone, and Zantac [Ranitidine Hcl] MEDICATIONS omeprazole (PRILOSEC) 40 mg capsule Take 1 capsule by mouth once daily. fluticasone (FLONASE) 50 mcg/actuation nasal spray Use 2 Sprays in each nostril once daily. Rinse mouth after use. benzonatate (TESSALON PERLE) 100 mg capsule Take 1 capsule by mouth th (more content not included)... [facility] 01-28-2025 Note HNO ID: [id number] Author: YOLANDE AUSTIN, TECHNOLOGIST Service: ? Author Type: Technologist Type: Progress Notes Filed: 01/28/2025 13:25 Note Text: Radiology Service Progress Note PATIENT NAME: Elizabeth Persaud DATE OF SERVICE: January 28, 2025 TIME: 1:25 PM PATIENT IDENTITY VERIFICATION COMPLETED USING TWO [...] PATIENT PRESENTS WITH AN IMPLANTABLE OR ATTACHED COMPUTER TEACHER: No RADIOLOGY DEPARTMENT: Ultrasound PERIPHERAL IV DATA: Not applicable SIGNED BY: Yolande Austin TECHNOLOGIST January 28, 2025 1:[address] [facility] 01-27-2025 Progress note [facility] 01-26-2025 Note HNO ID: [id number] Author: JANIS DAVIS Tech Service: ? Author Type: Dry Transfer Man Type: Progress Notes Filed: 01/26/2025 18:28 Note Text: Radiology Service Progress Note PATIENT NAME: Elizabeth Persaud DATE OF SERVICE: January 26, 2025 TIME: 6:28 PM PATIENT IDENTITY VERIFICATION COMPLETED USING TWO (2) IDENTIFIERS: Name and Date of confirmed by patient verbally. FALL SCREENING: Has the patient had 2 falls in the last year or 1 fall with injury or currently using an Ambulatory Assistive Device (Walker, Cane, Wheelchair, Crutches, etc.)? No PATIENT GENDER DATA: Assigned female at . status: status: NO. PATIENT RELEVANT IMPLANT DATA REVIEWED: Yes PATIENT PRESENTS WITH AN IMPLANTABLE OR ATTACHED COMPUTER TEACHER: Yes Other pacemaker RADIOLOGY DEPARTMENT: General X-ray: Exam(s) Completed: Chest X-Ray PERIPHERAL IV DATA: Not applicable SIGNED BY: Jocelynn Gruber January 26, 2025 6:28 PM [facility] 01-26-2025 Note HNO ID: [id number] Author: DIANNA BALLARD APRN.BOLT SORTER Service: ? Author Type: Nurse Practitioner Type: Progress Notes Filed: 01/26/2025 18:55 Note Text: CC: Patient presents with: Recheck: Swelling above pacemaker HPI Elizabeth Persaud is a 79 year old female who presents today for swelling to pacemaker site. Recording using Binpress software for draft documentation of the visit was discussed with the patient/authorized direct marketing representative; all questions welcomed and answered. Patient/authorized direct marketing representative agreed to proceed Pacemaker Site Swelling: - Elizabeth Persaud noticed swelling around the pacemaker site approximately one week ago. - Evaluated at the pacemaker clinic in [place]; pacemaker was deemed to be in the correct position with no signs of infection. Has appointment with her cardiology group tomorrow. - Elizabeth reports tenderness at the site since the surgery, but no increase in tenderness with the swelling. - No associated fever, erythema, or drainage. - She feels swelling appears to be moving towards the neck. - Denies any trauma to the area. Dyspnea: - Intermittent episodes of dyspnea while at rest, with SpO2 readings around 95%. - Recent episodes of wheezing. - Denies palpitations, chest pressure, edema outside of pacemaker site, or cough. REVIEW OF SYSTEMS See HPI PAST MEDICAL [...] left Dr. Manuel oHover - Dr. Alessio Welch PAST SURGICAL HISTORY OF NECK SURGERY, anterior [...] YRS/> REDUCIBLE 07/17/2010 Hernia repair, umbilical >5yr [facility] Dr Manuel Hoover SHX COSMETIC SURGERY [...] mouth three times a day as needed. jlncowpddbl-eftpsovzy-vsklwzny (TRELEGY ELLIPTA) 100-62.5-25 mcg inhalation powder Inhale [...] 40 mg tablet Take 1 tablet by wendy (more content not included)... [facility] 01-25-2025 Procedure note [facility] 01-13-2025 Telephone encounter Note Patient notified. [facility] 01-13-2025 Miscellaneous Notes Patient notified. Still with UTI. I am prescribing her a week of Nitrofurantoin and want her to hold her jardiance. Recheck urine 10-14 days after treatment for uti is completed. Thank you Dianna Ballard APRN.CNP documented in this encounter [facility] 01-12-2025 Telephone encounter Note Still with UTI. I am prescribing her a week of Nitrofurantoin and want her to hold her jardiance. Recheck urine 10-14 days after treatment for uti is completed. Thank you Dianna Ballard APRN.ANITHA [facility] 01-07-2025 Note HNO ID: [id number] Author: DIANNA BALLARD APRN.CNP Service: ? Author Type: Nurse Practitioner Type: Progress Notes Filed: 01/07/2025 10:56 Note Text: CC: Patient presents with: Recheck: 4 week follow up HPI Elizabeth Persaud is a 79 year old female who presents today for follow up on depression and was found to have a UTI which was treated. Recording using Binpress software for draft documentation of the visit was discussed with the patient/authorized direct marketing representative; all questions welcomed and answered. Patient/authorized direct marketing representative agreed to proceed Possible UTI: - was treated with macrobid 4 weeks ago. Reports she took antibiotic as prescribed and symptoms resolved. - Elizabeth denies dysuria, malodorous or dark urine, abdominal pain, or fever. - Urine becomes clear after taking Lasix. Depression: - Noted improvement in depression symptoms, but still present. - Discontinued Wellbutrin last week due to increased fatigue and racing thoughts. - Elizabeth denies suicidal or homicidal ideation. - Appetite unchanged; trying to eat less for weight management. - Sleep: 10 hours per night. - Engaging in social activities, but struggles with motivation otherwise. CHF: - History of CHF and Afib which she had an ablation a few months back with pacemaker placement; currently stable. [facility] - No dyspnea, chest pressure, or palpitations. - Pacemaker in place; reports feeling tired. - Edema in lower extremities has resolved over the past 1.5 weeks. - Elizabeth denies cough or wheezing. - Received an injection last for hip pain; reports improved mobility. REVIEW OF SYSTEMS See HPI PAST MEDICAL [...] left Dr. Manuel Hoover - Dr. Alessio Welch PAST SURGICAL HISTORY OF NECK SURGERY, anterior [...] YRS/> REDUCIBLE 07/17/2010 Hernia repair, umbilical >5yr [facility] Dr Manuel Hoover SHX COSMETIC SURGERY SKIN BIOPSY HX ALLERGIES Cardizem [Diltiazem Hcl], Codeine, Entex [Phenylephrine-Guaifenesin], Etodolac, Meloxicam, Naproxen, Tape [Adhesive Tape (Rosins)], Trazodone, and Zantac [Ranitidine Hcl] MEDICATIONS omeprazole (PRILOSEC) 40 mg capsule Take 1 capsule by mouth once daily. fluticasone (FLONASE) 50 mcg/actuation nasal spray Use 2 Sprays in each nostril once daily. Rinse mouth after use. benzonatate (TESSALON PERLE) 100 mg capsule Take 1 capsule by mouth three times a day as needed. aoufoygtyyt-wxaxiwuhh-nmnwfhec (TRELEGY ELLIPTA) 100-62.5-25 mcg inhalation powder Inhale [...] day. JARDIANCE 10 mg tablet Take 10 m (more content not included)... [facility] 01-07-2025 History of Presen t illness Narrative CC: Patient presents with: Recheck: 4 week follow up HPI Elizabeth Persaud is a 79 year old female who presents today for follow up on depression and was found to have a UTI which was treated. Recording using Binpress software for draft documentation of the visit was discussed with the patient/authorized direct marketing representative; all questions welcomed and answered. Patient/authorized direct marketing representative agreed to proceed Possible UTI: - was treated with macrobid 4 weeks ago. Reports she took antibiotic as prescribed and symptoms resolved. - Elizabeth denies dysuria, malodorous or dark urine, abdominal pain, or fever. - Urine becomes clear after taking Lasix. Depression: - Noted improvement in depression symptoms, but still present. - Discontinued Wellbutrin last week due to increased fatigue and racing thoughts. - Elizabeth denies suicidal or homicidal ideation. - Appetite unchanged; trying to eat less for weight management. - Sleep: 10 hours per night. - Engaging in social activities, but struggles with motivation otherwise. CHF: - History of CHF and Afib which she had an ablation a few months back with pacemaker placement; currently stable. [facility] - No dyspnea, chest pressure, or palpitations. - Pacemaker in place; reports feeling tired. - Edema in lower extremities has resolved over the past 1.5 weeks. - Elizabeth denies cough or wheezing. - Received an injection last for hip pain; reports improved mobility. REVIEW OF SYSTEMS See HPI PAST MEDICAL [...] left Dr. Manuel Hoover - Dr. Alessio Welch PAST SURGICAL HISTORY OF NECK SURGERY, anterior [...] YRS/> REDUCIBLE 07/17/2010 Hernia repair, umbilical >5yr [facility] Dr Manuel Hoover SHX COSMETIC SURGERY SKIN BIOPSY HX ALLERGIES Cardizem [Diltiazem Hcl], Codeine, Entex [Phenylephrine-Guaifenesin], Etodolac, Meloxicam, Naproxen, Tape [Adhesive Tape (Rosins)], Trazodone, and Zantac [Ranitidine Hcl] MEDICATIONS omeprazole (PRILOSEC) 40 mg capsule Take 1 capsule by mouth once daily. fluticasone (FLONASE) 50 mcg/actuation nasal spray Use 2 Sprays in each nostril once daily. Rinse mouth after use. benzonatate (TESSALON PERLE) 100 mg capsule Take 1 capsule by mouth three times a day as needed. jplzldhsggx-tkhopndqa-sabtolbi (TRELEGY ELLIPTA) 100-62.5-25 mcg inhalation powder Inhale [...] 1,000 mg by mouth five times daily. [id number] ORAL Take by mouth. FAMILY HISTORY Problem Relation Age of Onset Hypertension Mother Stroke Mother Coronary Artery Disease Father other (wilsons disease) Brother other (VINCE'S DISEASE) Brother Liver dse, cirrhosis SOCIAL HISTORY[1] PHYSICAL EXAM BP 136/78 Pulse 78 Resp 16 Wt 65.3 kg (144 lb) SpO2 96% BMI 27.19 kg/m General Appearance: well appearing, in no acute distress, alert Behavior: good eye contact Speech: fluent and coherent Mood: happy Affect: appropriate Perceptions: none Thought process: goal directed Thought Content: normal Intelligence level: normal Insight: good Judgment: good Lungs: Lungs clear to auscultation. No wheezing, rhonchi, rales. Heart: RRR without murmur, gallop, or rubs. No ectopy Abdomen: Abdomen soft, non-tender. Bowel sounds normal. No masses, organomegaly Health maintenance reviewed with patient: Depression Screening Never done Anxiety Screening Never done Shingrix Vaccine(3 of 3) due on 11/14/2021 RSV Vaccine(1 - 1-dose 75+ series) Never done Medicare Advantage Annual Wellness Visit due on 05/12/2024 Influenza Vaccine(1) due on 01/10/2025 Annual PCP Team Chronic Disease Visit due on 12/10/2025 Diabetes Screening due on 12/11/2027 DTaP,Tdap,Td Vaccine(2 - Td or Tdap) due on 09/04/2033 Bone Density Screening Completed Advance Directive Discussion Completed Hepatitis C Screening Completed Pneumococcal Vaccine: 50+ Completed Mammogram Screening Discontinued Colorectal Cancer Screening Discontinued DATA REVIEWED: Most recent labs Labs: - Blood tests: Normal; no anemia - Urinalysis: Trace white blood cells Assessment/Plan 1. Urinary tract infection with hematuria, site unspecified (N39.0) - Urinalysis showed trace WBCs; awaiting for urine culture and will treat if indicated. - No dysuria, hematuria, foul odor, dark urine, abdominal pain, or fever reported. - Educated patient that UTI can exacerbate fatigue and depressive symptoms. - Urine culture pending; - Follow-up in 3 months for Medicare wellness visit. 2. Depressive disorder (F32.A) 3. Other fatigue (R53.83) - Wellbutrin discontinued due to intolerance (increased fatigue, mental restlessness). - Depression improving but still present; no suicidal or homicidal ideation. - Fatigue may be multifactorial, including recent UTI and pacemaker. - Advised that fatigue may improve once infection is resolved if it is still present - will see if UTI is still present and decide follow up after resulted. - Reviewed concept of neurochemical imbalance wth depression/anxiety, treatment options and benefits of counseling in combination with medication. Also reviewed benefits of sleep hygeine, diet and exercise - Instructed patient to contact office or [id number] after-hours promptly should condition worsen or any new symptoms appear. - [facility]ing [facility] and after hours crisis line 4. Congestive heart failure, unspecified HF chronicity, unspecified heart failure type (HCC) (I50.9) - History of CHF ; currently stable. - No lower extremity edema, dyspnea, or chest pressure. - Pacemaker functioning well; no palpitations reported. - Continue current management and recommendations by cardiology 5. Primary hypertension (I10) - Blood pressure stable; continue current management. - starting regular physical activity, healthy well portioned, low fat, low salt diet will help to further improve this Prescription instructions reviewed with patient as applicable. Potential red flag symptoms discussed with the patient. Reviewed appropriate action plan to take if red flag symptoms occur. Patient agreeable to treatment plan. Dianna Ballard APRN.BOLT SORTER [1] Social History Tobacco Use Smoking status: Former Current packs/day: 0.00 Average packs/day: 2.0 packs/day for 35.0 years (70.0 ttl pk-yrs) Types: Cigarettes Start date: 11/09/1970 Quit date: 11/09/2005 Years since quittin.1 Smokeless tobacco: Never Tobacco comments: Stopped smoking 12/2005 Vaping Use Vaping status: Never Used Substance Use Topics Alcohol use: Not Currently Drug use: No documented in this encounter [facility] 12-13-2024 Telephone encounter Note Pt informed Kathy Hall MA [facility] 12-13-2024 Miscellaneous Notes Pt informed Kathy Hall MA Patient positive for UTI. I have sent in an antibiotic for her to take. Nitrofurantoin. 1 tablet twice a day for 5 days. Thank you Dianna Ballard APRN.CNP documented in this encounter [facility] 12-13-2024 Telephone encounter Note Patient positive for UTI. I have sent in an antibiotic for her to take. Nitrofurantoin. 1 tablet twice a day for 5 days. Thank you Dianna Ballard APRN.CNP [facility] 12-10-2024 Instructions Dianna Ballard APRN.CNP - 12/10/2024 9:43 AM EDT - A prescription for bupropion (Wellbutrin) has been sent to [facility]; take it as directed. If you develop jitteriness, trouble sleeping, palpitations, increased anxiety, worsening depression, or any thoughts of harming yourself, stop the medicine and contact our office right away. - Schedule and complete a right leg ultrasound. - Complete blood work and the urinalysis with microscopic exam and culture today (lab orders are already in your chart). - Monitor the swelling and any redness in your leg; if you notice increased pain, redness, warmth, or develop a fever, call our office promptly. - Follow up in 4 weeks for review of your new medication, test results, and overall progress. documented in this encounter [facility] 12-10-2024 Note HNO ID: [id number] Author: DIANNA BALLARD APRN.ANITHA Service: ? Author Type: Nurse Practitioner Type: Progress Notes Filed: 12/10/2024 15:53 Note Text: CC: Patient presents with: Recheck: 6 week follow up HPI Elizabeth Persaud is a 79 year old female who presents today for follow up. Had recent ablation with pacemaker placement at [facility]. Recording using Binpress software for draft documentation of the visit was discussed with the patient/authorized direct marketing representative; all questions welcomed and answered. Patient/authorized direct marketing representative agreed to proceed Concerned today with severe Fatigue: - Severe fatigue, falling asleep frequently during the day. - Onset coincided with recent job loss. - Adequate sleep at night. - Denies new nausea, emesis, shortness of breath, palpitations, chest pressure, or dizziness. Has noticed some foul smelling urine but denies abdominal pain, difficulty/pain urinating, dark urine, or blood in her urine. Depression: - History of depression, previously treated with medication during a divorce. - Reports feeling down and depressed nearly all the time over the past two weeks. - Overeating daily; - Difficulty concentrating; easily distracted. - Denies feeling hopeless or having thoughts of self-harm. - Experiences irritability about half the time. - Denies feeling nervous, anxious, or on edge more than 2-3 days in the past two weeks. - Denies restlessness or fear of something awful happening. Lower Extremity Edema: - Elizabeth noticed swelling in her right leg, which began after a cut on the leg two weeks ago. - Swelling improved with Lasix use; ran out of medication recently. RLE is the only one swollen now. Cut has healed and no longer with redness. - Experienced a brief fever about a week and a half ago, which resolved quickly. - Denies pain in the leg; swelling is significantly reduced but still present. - Denies known trauma or injury. - was off her eliquis for a few days for her ablation and pacemaker placement Pacemaker: - Recently had a pacemaker placed and adjusted. - Denies palpitations, dyspnea, or chest pain. - Reports discomfort from seatbelt pressure on the pacemaker site. REVIEW OF SYSTEMS See HPI 12/10/2024 CP PHQ9 Little interest or pleasure 3 - Nearly every day Feeling down, depressed, hopeless 3 - Nearly every day Trouble falling or staying asleep, sleeping too much 3 - nearly every day Feeling tired, having little energy 3 - Nearly every day Poor appetite or overeating 3 - Nearly every day Feeling bad about yourself, failure or you have let yourself/family down 3 - Nearly every day Trouble concentrating on things 3 - Nearly every day Moving or speaking so slowly, or fidgety or restless 0 - Not at all Thoughts that you would be better off , or of hurting yourself in some way 0 - Not at all How difficult have these problems made things Somewhat difficult Interpretation of Total Score 20-27 Severe depression CASTRO-7 ANXIETY SCALE Feeling nervous, anxious, or on edge 1 Several days Not being able to stop or control worrying 0 Not at all sure Worrying too much about different things 2 Over half the days Trouble relaxing 0 Not at all sure Being so restless that it's hard to sit still 0 Not at all sure Being easily annoyed or irritable 2 Over half the days Feeling afraid as if something awful might happen 0 Not at all sure CASTRO-7 Anxiety Score 5 If you checked off any problems, how difficult have these problems made it for you to do your work, take care of things at home, or get along with other people? Not difficult at all PAST MEDICAL HISTORY Diagnosis Date Anxiety Arthritis [...] TRANSORAL DIAGNOSTIC 10/06/2013 EGD ESOPHAGOGASTRODUODENOSCOPY TRANSORAL DIAGNOSTIC (more content not included)... [facility] 12-10-2024 History of Presen t illness Narrative CC: Patient presents with: Recheck: 6 week follow up HPI Elizabeth Persaud is a 79 year old female who presents today for follow up. Had recent ablation with pacemaker placement at [facility]. Recording using Binpress software for draft documentation of the visit was discussed with the patient/authorized direct marketing representative; all questions welcomed and answered. Patient/authorized direct marketing representative agreed to proceed Concerned today with severe Fatigue: - Severe fatigue, falling asleep frequently during the day. - Onset coincided with recent job loss. - Adequate sleep at night. - Denies new nausea, emesis, shortness of breath, palpitations, chest pressure, or dizziness. Has noticed some foul smelling urine but denies abdominal pain, difficulty/pain urinating, dark urine, or blood in her urine. Depression: - History of depression, previously treated with medication during a divorce. - Reports feeling down and depressed nearly all the time over the past two weeks. - Overeating daily; - Difficulty concentrating; easily distracted. - Denies feeling hopeless or having thoughts of self-harm. - Experiences irritability about half the time. - Denies feeling nervous, anxious, or on edge more than 2-3 days in the past two weeks. - Denies restlessness or fear of something awful happening. Lower Extremity Edema: - Elizabeth noticed swelling in her right leg, which began after a cut on the leg two weeks ago. - Swelling improved with Lasix use; ran out of medication recently. RLE is the only one swollen now. Cut has healed and no longer with redness. - Experienced a brief fever about a week and a half ago, which resolved quickly. - Denies pain in the leg; swelling is significantly reduced but still present. - Denies known trauma or injury. - was off her eliquis for a few days for her ablation and pacemaker placement Pacemaker: - Recently had a pacemaker placed and adjusted. - Denies palpitations, dyspnea, or chest pain. - Reports discomfort from seatbelt pressure on the pacemaker site. REVIEW OF SYSTEMS See HPI 12/10/2024 CP PHQ9 Little interest or pleasure 3 - Nearly every day Feeling down, depressed, hopeless 3 - Nearly every day Trouble falling or staying asleep, sleeping too much 3 - nearly every day Feeling tired, having little energy 3 - Nearly every day Poor appetite or overeating 3 - Nearly every day Feeling bad about yourself, failure or you have let yourself/family down 3 - Nearly every day Trouble concentrating on things 3 - Nearly every day Moving or speaking so slowly, or fidgety or restless 0 - Not at all Thoughts that you would be better off , or of hurting yourself in some way 0 - Not at all How difficult have these problems made things Somewhat difficult Interpretation of Total Score 20-27 Severe depression CASTRO-7 ANXIETY SCALE Feeling nervous, anxious, or on edge 1 Several days Not being able to stop or control worrying 0 Not at all sure Worrying too much about different things 2 Over half the days Trouble relaxing 0 Not at all sure Being so restless that it's hard to sit still 0 Not at all sure Being easily annoyed or irritable 2 Over half the days Feeling afraid as if something awful might happen 0 Not at all sure CASTRO-7 Anxiety Score 5 If you checked off any problems, how difficult have these problems made it for you to do your work, take care of things at home, or get along with other people? Not difficult at all PAST MEDICAL HISTORY Diagnosis Date Anxiety Arthritis [...] left Dr. Manuel Hoover - Dr. Alessio Welch PAST SURGICAL HISTORY OF NECK SURGERY, anterior [...] YRS/> REDUCIBLE 07/17/2010 Hernia repair, umbilical >5yr [facility] Dr Manuel Hoover SHX COSMETIC SURGERY SKIN BIOPSY HX ALLERGIES Cardizem [Diltiazem Hcl], Codeine, Entex [Phenylephrine-Guaifenesin], Etodolac, Meloxicam, Naproxen, Tape [Adhesive Tape (Rosins)], Trazodone, and Zantac [Ranitidine Hcl] MEDICATIONS omeprazole (PRILOSEC) 40 mg capsule Take 1 capsule by mouth once daily. buPROPion XL (WELLBUTRIN XL) 150 mg 24 hr tablet Take 1 tablet by mouth once daily. fluticasone (FLONASE) 50 mcg/actuation nasal spray Use 2 Sprays in each nostril once daily. Rinse mouth after use. benzonatate (TESSALON PERLE) 100 mg capsule Take 1 capsule by mouth three times a day as needed. doxowmlcffz-hpmcfaylx-scrtgjhp (TRELEGY ELLIPTA) 100-62.5-25 mcg inhalation powder Inhale [...] 1,000 mg by mouth five times daily. [id number]-[id number] ORAL Take by mouth. FAMILY HISTORY Problem Relation Age of Onset Hypertension Mother Stroke Mother Coronary Artery Disease Father other (wilsons disease) Brother other (VINCE'S DISEASE) Brother Liver dse, cirrhosis Social History Tobacco Use Smoking status: Former Current packs/day: 0.00 Average packs/day: 2.0 packs/day for 35.0 years (70.0 ttl pk-yrs) Types: Cigarettes Start date: 11/09/1970 Quit date: 11/09/2005 Years since quittin.0 Smokeless tobacco: Never Tobacco comments: Stopped smoking 12/2005 Vaping Use Vaping status: Never Used Substance Use Topics Alcohol use: Not Currently Drug use: No PHYSICAL EXAM BP 128/80 Pulse 77 Resp 16 Wt 64.9 kg (143 lb) SpO2 98% BMI 27.00 kg/m General Appearance: well appearing, in no acute distress, alert Pysch: mood and affect broad and appropriate Eyes: conjunctiva pink and moist, no icterus, sclera white, non-injected Neck: Thyroid normal size and symmetric without palpable nodules, Neck supple, No adenopathy Lymph nodes: No cervical lymphadenopathy and No supraclavicular lymphadenopathy Lungs: Lungs clear to auscultation. No wheezing, rhonchi, rales. Heart: RRR without murmur, gallop, or rubs. No ectopy Abdomen: Abdomen soft, non-tender. Bowel sounds normal. No masses, organomegaly RLE: 2+ edema with scab to shankar area with surrounding pink to red area. No tenderness, red streaking, or increased warmth. Pulses palpable. No calf tenderness. Negative mayelin sign Health maintenance reviewed with patient: Depression Screening Never done Anxiety Screening Never done Shingrix Vaccine(3 of 3) due on 11/14/2021 RSV Vaccine(1 - 1-dose 75+ series) Never done Influenza Vaccine(1) due on 01/10/2025 Annual PCP Team Chronic Disease Visit due on 12/10/2025 Diabetes Screening due on 10/19/2027 DTaP,Tdap,Td Vaccine(2 - Td or Tdap) due on 09/04/2033 Bone Density Screening Completed Advance Directive Discussion Completed Hepatitis C Screening Completed Pneumococcal Vaccine: 50+ Completed Mammogram Screening Discontinued Colorectal Cancer Screening Discontinued DATA REVIEWED: Most recent labs Assessment/Plan 1. Edema of right lower extremity (R60.0) - Recent unilateral lower extremity edema with history of temporary Eliquis interruption for surgery; differential includes DVT. - Order ultrasound of affected leg to rule out DVT. - Advised patient to monitor for signs of infection or worsening swelling. - US negative for DVT 2. Other fatigue (R53.83) 3. Depressive disorder (F32.A) - Significant fatigue and hypersomnia with PHQ-9 responses indicating severe depression; mild anxiety also present. - Differential includes infection, anemia, and pacemaker-related fatigue. - Order blood work to rule out underlying physiological causes. - Start Wellbutrin; discussed risks (jitteriness, insomnia, palpitations, increased anxiety, worsening depression, suicidal ideation) and instructed to discontinue and notify if these occur. - Educated on potential stimulant effects of Wellbutrin and its use for both depression and weight management. - Follow-up in 4 weeks. - Reviewed concept of neurochemical imbalance wth depression/anxiety, treatment options and benefits of counseling in combination with medication. Also reviewed benefits of sleep hygeine, diet and exercise - Instructed patient to contact office or [id number] after-hours promptly should condition worsen or any new symptoms appear. - [facility] and after hours crisis line 4. Foul smelling urine (R82.90) - Urinalysis showed glucose and trace leukocytes; possible UTI, increased risk due to Jardiance and glucose in urine due to jardiance usage. - Send urine for microscopy and culture. - will treat as indicated - Educated on Jardiance causing glucosuria and increased UTI risk. 5. Presence of cardiac pacemaker (Z95.0) - Recent pacemaker placement; patient reports fatigue and tenderness at site. - Educated that pacemaker may contribute to fatigue, but other causes are being investigated. Prescription instructions reviewed with patient as applicable. Potential red flag symptoms discussed with the patient. Reviewed appropriate action plan to take if red flag symptoms occur. Patient agreeable to treatment plan. Dianna Ballard APRN.CNP documented in this encounter [facility] 12-03-2024 Note HNO ID: [id number] Author: ?, ?, ? Service: ? Author Type: ? Type: Progress Notes Filed: 12/03/2024 12:46 Note Text: POPULATION HEALTH NAVIGATION OUTREACH Action/FYI Patient outreach for HCCs HM due; AWV. Pt was having trouble with [employer], checked onesource pt is still eligible. Lvm and sent myc to schedule. Reason for Outreach Care Gap/HCC or Scheduling Wellness Visits Care Gaps due: Medicare Annual Wellness Visit Patient Contacted: Unable or unnecessary to reach patient: Left message RainStorhart message sent HCC related Updated appointment notes Navigation Signature: Mine Lyn Pss December 03, 2024 12:40 PM [facility] 12-03-2024 History of Presen t illness Narrative POPULATION HEALTH NAVIGATION OUTREACH Action/FYI Patient outreach for HCCs HM due; AWV. Pt was having trouble with [employer], checked onesource pt is still eligible. Lvm and sent myc to schedule. Reason for Outreach Care Gap/HCC or Scheduling Wellness Visits Care Gaps due: Medicare Annual Wellness Visit Patient Contacted: Unable or unnecessary to reach patient: Left message RainStorhart message sent HCC related Updated appointment notes Navigation Signature: Mine Gonzalze December 03, 2024 12:40 PM documented in this encounter [facility] 12-03-2024 Note Patient Outreach (RAYMOND TNAV) ELIZABETH PERSAUD ([id number]) 1945 F [facility] Date Time Provider Department 12/03/24 MINERVA SHAVER During your visit today, we recorded the following information about you: Mine Barba 12/03/2024 12:46 PM Signed POPULATION HEALTH NAVIGATION OUTREACH Action/FYI Patient outreach for HCCs HM due; AWV. Pt was having trouble with [employer], checked onesource pt is still eligible. Lvm and sent myc to schedule. Reason for Outreach Care Gap/HCC or Scheduling Wellness Visits Care Gaps due: Medicare Annual Wellness Visit Patient Contacted: Unable or unnecessary to reach patient: Left message MyChart message sent HCC related Updated appointment notes Navigation Signature: Mine Gonzalez December 03, 2024 12:40 PM Allergies As of Date: 12/03/2024 Noted Allergy Reaction CARDIZEM (DILTIAZEM HCL) 01/18/2015 [...] - Rash 7 - Swelling Date Reviewed: 10/22/2024 Reviewed by: Tamanna Cordova MA - Fully Assessed Reason for Visit: Population Health Navigation Outreach [3910] Cmt: America Guillermo Prescriptions as of 12/03/2024 - omeprazole (PRILOSEC) 40 mg capsule Take 1 capsule by mouth once daily. - fluticasone (FLONASE) 50 mcg/actuation nasal spray Use 2 Sprays in each nostril once daily. Rinse mouth after use. - benzonatate (TESSALON PERLE) 100 mg capsule Take 1 capsule by mouth three times a day as needed. - tggxjuspwnx-qvonxqtnr-froceazs (TRELEGY ELLIPTA) 100-62.5-25 mcg inhalation powder Inhale 1 Puff as instructed once daily. - sucralfate (CARAFATE) 100 mg/mL suspension Take 10 mL by mouth before meals and at bedtime. (560cc=2wks) - diclofenac, EC, (VOLTAREN) 75 mg EC tablet Takes once daily PRN for acute pain/inflammation. Take with food. - metoprolol succinate ER (TOPROL XL) 50 [...] 1 tablet by mouth once daily. - melatonin 3 mg ODT Take 1 tablet by mouth daily at bedtime. - MULTIVITAMIN WITH MINERALS (ONE-A-DAY 50 PLUS ORAL) Take by mouth. - CALCIUM CARBONATE/VITAMIN D3 (VITAMIN D-3 ORAL) Take 1,000 mg by mouth five times daily. - KSSOTOH-ZEOSYIZRQ-RLKE ORAL Take by mouth. Problem List As Of Date 12/03/2024 Noted Resolved PERSISTENT INSOMNIA [G47.00] 07/16/2006 Moses's [...] disease (HCC) [I73.9] 06/30/2023 Encounter Status:Closed by MINE BARBA on 12/03/24 [facility] 11-17-2024 Procedure note [facility] 11-03-2024 Note HNO ID: [id number] Author: ?, ?, ? Service: ? Author Type: ? Type: Progress Notes Filed: 11/03/2024 11:29 Note Text: POPULATION HEALTH NAVIGATION OUTREACH Action/FYI Called pt back due to being on the phone with [employer], lvm and sent mychart to close gaps. Reason for Outreach Returned Call/MyChart Patient Contacted: Unable or unnecessary to reach patient: Left message Navigation Signature: Mine Gonzalez November 03, 2024 11:27 AM [facility] 11-03-2024 History of Present illness Narrative POPULATION HEALTH NAVIGATION OUTREACH Action/FYI Called pt back due to being on the phone with [employer], lvm and sent mychart to close gaps. Reason for Outreach Returned Call/MyChart Patient Contacted: Unable or unnecessary to reach patient: Left message Navigation Signature: Mine Gonzalez November 03, 2024 11:27 AM POPULATION HEALTH NAVIGATION OUTREACH Action/FYI Patient outreach for HCC gaps; AWV due 04/02/25. Spoke with patient was on phone with [employer], asked for a call back. Reason for Outreach Care Gap/HCC or Scheduling Wellness Visits Care Gaps due: Medicare Annual Wellness Visit Patient Contacted: Spoke to patient/parent/or legal guardian Patient identified by name and : No Navigation Signature: Mine Gonzalez November 03, 2024 9:26 AM documented in this encounter [facility] 11-03-2024 Note HNO ID: [id number] Author: ?, ?, ? Service: ? Author Type: ? Type: Progress Notes Filed: 11/03/2024 11:26 Note Text: POPULATION HEALTH NAVIGATION OUTREACH Action/FYI Patient outreach for HCC gaps; AWV due 04/02/25. Spoke with patient was on phone with [employer], asked for a call back. Reason for Outreach Care Gap/HCC or Scheduling Wellness Visits Care Gaps due: Medicare Annual Wellness Visit Patient Contacted: Spoke to patient/parent/or legal guardian Patient identified by name and : No Navigation Signature: Mine Gonzalez November 03, 2024 9:26 AM [facility] 11-03-2024 Note Patient Outreach (NE TNAV) ELIZABETH PERSAUD ([id number]) 1945 F [facility] Date Time Provider Department 11/03/24 MINERVA SHAVER During your visit today, we recorded the following information about you: Mine Barba 11/03/2024 11:26 AM Signed POPULATION HEALTH NAVIGATION OUTREACH Action/FYI Patient outreach for HCC gaps; AWV due 04/02/25. Spoke with patient was on phone with [employer], asked for a call back. Reason for Outreach Care Gap/HCC or Scheduling Wellness Visits Care Gaps due: Medicare Annual Wellness Visit Patient Contacted: Spoke to patient/parent/or legal guardian Patient identified by name and : No Navigation Signature: Mine Gonzalez November 03, 2024 9:26 AM Mine Barba 11/03/2024 11:29 AM Signed POPULATION HEALTH NAVIGATION OUTREACH Action/FYI Called pt back due to being on the phone with [employer], lvm and sent mychart to close gaps. Reason for Outreach Returned Call/MyChart Patient Contacted: Unable or unnecessary to reach patient: Left message Navigation Signature: Mine Lyn [facility] November 03, 2024 11:27 AM Allergies As of Date: 11/03/2024 Noted Allergy Reaction CARDIZEM (DILTIAZEM HCL) 01/18/2015 [...] - Rash 7 - Swelling Date Reviewed: 10/22/2024 Reviewed by: Tamanna Cordova MA - Fully Assessed Reason for Visit: Population Health Navigation Outreach [3910] Cmt: America Guillermo Prescriptions as of 11/03/2024 - nystatin (MYCOSTATIN) 100,000 unit/mL suspension Take 4 mL by mouth four times daily for 14 days. Swish and swallow. - omeprazole (PRILOSEC) 40 mg capsule Take 1 capsule by mouth once daily. - fluticasone (FLONASE) 50 mcg/actuation nasal spray Use 2 Sprays in each nostril once daily. Rinse mouth after use. - benzonatate (TESSALON PERLE) 100 mg capsule Take 1 capsule by mouth three times a day as needed. - ibuwlvsluwu-chssdpcda-dkszlujn (TRELEGY ELLIPTA) 100-62.5-25 mcg inhalation powder Inhale 1 Puff as instructed once daily. - sucralfate (CARAFATE) 100 mg/mL suspension Take 10 mL by mouth before meals and at bedtime. (560cc=2wks) - diclofenac, EC, (VOLTAREN) 75 mg EC tablet Takes once daily PRN for acute pain/inflammation. Take with food. - metoprolol succinate ER (TOPROL XL) 50 [...] 1 tablet by mouth once daily. - melatonin 3 mg ODT Take 1 tablet by mouth daily at bedtime. - MULTIVITAMIN WITH MINERALS (ONE-A-DAY 50 PLUS ORAL) Take by mouth. - CALCIUM CARBONATE/VITAMIN D3 (VITAMIN D-3 ORAL) Take 1,000 mg by mouth five times daily. - BHVMSQS-TKTUWECGV-QGAJ ORAL Take by mouth. Problem List As Of Date 11/03/2024 Noted Resolved PERSISTENT INSOMNIA [G47.00] 07/16/2006 Moses's [...] (basal cell carcinoma of skin) [C44.91] 12/24/2021 (more content not included)... [facility] 11-01-2024 Note HNO ID: [id number] Author: JOB OLIVER RN Service: ? Author Type: Registered Nurse Type: Progress Notes Filed: 11/01/2024 14:49 Note Text: Transitional Care Management (TCM) Follow-Up Note PCP Update / Actionable Items N/A - No specialty updates needed Patient Source: [facility] ([facility]ON) Discharge Outreach Summary: Patient will see her orthopedic provider Dr Fink on 11/09/2024 to have sutures removed from recent Left carpal tunnel release on 10/25/2024. Pain is controled per patient. She feels well today and has no further questions or concerns at this time. Contact: Contact made with patient: Yes Spoke [...] since leaving the hospital? Better Weekly Outreach: 3rd Outreach (Reminder to complete appropriate education topics with the patient.) Medications: Do you have any questions about taking your medications, including which medications you should be on, or do you need refills on your medications? No Patient Questions / Concerns: Do you have any questions related to your discharge? No Appointment / TCM Follow-Up: Have you had a follow-up visit with your Primary Care Provider or Specialist since you were discharged? Yes Do you need any assistance with scheduling or changing your follow-up appointments? Patient already has an appointment scheduled EDUCATION: Patient and family educated on issues/questions related to reason for admission, transition of care topics, and follow-up needed upon discharge. Utilization Education - Where to go for Care Where to Go for Care Job Oliver RN November 01, 2024 2:47 PM [facility] 11-01-2024 History of Present illness Narrative Transitional Care Management (TCM) Follow-Up Note PCP Update / Actionable Items N/A - No specialty updates needed Patient Source: [facility] ([facility]ON) Discharge Outreach Summary: Patient will see her orthopedic provider Dr Fink on 11/09/2024 to have sutures removed from recent Left carpal tunnel release on 10/25/2024. Pain is controled per patient. She feels well today and has no further questions or concerns at this time. Contact: Contact made with patient: Yes Spoke [...] since leaving the hospital? Better Weekly Outreach: 3rd Outreach (Reminder to complete appropriate education topics with the patient.) Medications: Do you have any questions about taking your medications, including which medications you should be on, or do you need refills on your medications? No Patient Questions / Concerns: Do you have any questions related to your discharge? No Appointment / TCM Follow-Up: Have you had a follow-up visit with your Primary Care Provider or Specialist since you were discharged? Yes Do you need any assistance with scheduling or changing your follow-up appointments? Patient already has an appointment scheduled EDUCATION: Patient and family educated on issues/questions related to reason for admission, transition of care topics, and follow-up needed upon discharge. Utilization Education - Where to go for Care Where to Go for Care Job Oliver RN November 01, 2024 2:47 PM documented in this encounter [facility] 11-01-2024 Note Patient Outreach ([facility] HUNGELIZABETH Celsa ([id number]) 1945 F [place] Date Time Provider Department 11/01/24 JOB OLIVER [facility] During your visit today, we recorded the following information about you: Job Oliver RN 11/01/2024 2:49 PM Signed Transitional Care Management (TCM) Follow-Up Note PCP Update / Actionable Items N/A - No specialty updates needed Patient Source: Cgb-ds[facility]Otm[facility] (OON) Discharge Outreach Summary: Patient will see her orthopedic provider Dr Fink on 11/09/2024 to have sutures removed from recent Left carpal tunnel release on 10/25/2024. Pain is controled per patient. She feels well today and has no further questions or concerns at this time. Contact: Contact made with patient: Yes Spoke [...] since leaving the hospital? Better Weekly Outreach: 3rd Outreach (Reminder to complete appropriate education topics with the patient.) Medications: Do you have any questions about taking your medications, including which medications you should be on, or do you need refills on your medications? No Patient Questions / Concerns: Do you have any questions related to your discharge? No Appointment / TCM Follow-Up: Have you had a follow-up visit with your Primary Care Provider or Specialist since you were discharged? Yes Do you need any assistance with scheduling or changing your follow-up appointments? Patient already has an appointment scheduled EDUCATION: Patient and family educated on issues/questions related to reason for admission, transition of care topics, and follow-up needed upon discharge. Utilization Education - Where to go for Care Where to Go for Care Job Oliver RN November 01, 2024 2:47 PM Allergies As of Date: 11/01/2024 Noted Allergy Reaction CARDIZEM (DILTIAZEM HCL) 01/18/2015 [...] - Rash 7 - Swelling Date Reviewed: 10/22/2024 Reviewed by: Tamanna Cordova MA - Fully Assessed Prescriptions as of 11/01/2024 - nystatin (MYCOSTATIN) 100,000 unit/mL suspension Take 4 mL by mouth four times daily for 14 days. Swish and swallow. - omeprazole (PRILOSEC) 40 mg capsule Take 1 capsule by mouth once daily. - fluticasone (FLONASE) 50 mcg/actuation nasal spray Use 2 Sprays in each nostril once daily. Rinse mouth after use. - benzonatate (TESSALON PERLE) 100 mg capsule Take 1 capsule by mouth three times a day as needed. - prbuvnclnqc-tvcqwtgux-hjbhmusy (TRELEGY ELLIPTA) 100-62.5-25 mcg inhalation powder Inhale 1 Puff as instructed once daily. - sucralfate (CARAFATE) 100 mg/mL suspension Take 10 mL by mouth before meals and at bedtime. (560cc=2wks) - diclofenac, EC, (VOLTAREN) 75 mg EC tablet Takes once daily PRN for acute pain/inflammation. Take with food. - metoprolol succinate ER (TOPROL XL) 50 [...] 1 tablet by mouth once daily. - melatonin 3 mg ODT Take 1 tablet by mouth daily at bedtime. - MULTIVITAMIN WITH MINERALS (ONE-A-DAY 50 PLUS ORAL) Take by mouth. - CALCIUM CARBONATE/VITAMIN D3 (VITAMIN D-3 ORAL) Take 1,000 mg by mouth five times daily. - MDVQMAX-EXFCNIIJF-THUU ORAL Take by mouth. Problem List As Of Date 11/01/2024 Noted Resolved PERSISTENT INSOMNIA [G47.00] 07/16/2006 Moses's esophagus [K22.70] 07/16/2006 CALCULUS OF KIDNEY [N20.0] 07/16/2006 Irritable bowel syndrome [K58.9] 07/16/2006 01/10/2016 Tobacco use disorder [F17.200] 07/16/2006 01/10/2016 Pain in joint, shoulder region [M25.519] 06/22/2008 09/25/2015 ANXIETY GENERALIZED [F41.1] 08/31/2008 01/10/2016 Umbilical hernia without mention of obstruction*07/25/2010 09/25/2015 Carpal caroline (more content not included)... [facility] 10-25-2024 History and physi lauren note Note Date/Time October 25, 2024 7:11am [facility] Medical Records Department [address] [place] [address] History & Physical Exam 10/25/24 0711 MR#: [id number] Acct: [id number] Name: ELIZABETH PERSAUD Rep #:[id number] : 1945 79 From: Dragan Fink MD PCP: Dr. Minerva Shaver MD Status:REG S DC Location: AC02- History and Physical MR#: [id number] Acct: [id number] Name: ELIZABETH PERSAUD Rep #: [id number] : 1945 Provider: Dr. Dragan Fink MD Age/Sex: 79/F Location: [facility] Status: Signed Intake Vital Signs 08/17/2510:00 09/30/2511:27 10/15/2509:29 Height 5 ft 1 in 5 ft 5 ft Weight: 135 lb BMI 26.4 Intake Visit Reasons: LUMBAR SPINE Chief Complaint: Lumbar spine MRI review and nerve test Accompanied by: Self Is patient in pain?: No Allergies etodolac Allergy (Intermediate, Verified 10/15/24 10:32) Otherdiltiazem HCl (From Cardizem) Allergy (Verified 10/15/24 10:32) Swelling of face and necknaproxen Allergy (Verified 10/15/24 10:32) Swelling (whole body)prednisone Allergy (Verified 10/15/24 10:32) Otheramiodarone Adverse Reaction (Severe, Verified 10/15/24 10:32) Severe dyspnea after taking PO Amiodaroneadhesive Adverse Reaction (Verified 10/15/24 10:32) Rashalbuterol Adverse Reaction (Verified 10/15/24 10:32) Othercodeine Adverse Reaction (Verified 10/15/24 10:32) Vomitinghydrocodone bitartrate (From Vicodin) Adverse Reaction (Verified 10/15/24 10:32) Vomitingmorphine Adverse Reaction (Verified 10/15/24 10:32) Vomiting Medications ?Medication ?Instructions ?Recorded ?Confirmed ?Type multivitamin with folic acid 400 1 tab PO DAILY supplement 03/15/1310/15 History mcg tablet cyclobenzaprine 10 mg tablet 10 mg PO HS PRN muscle spasm 07/25/22 History fluticasone fur. 100 mcg-umeclid 1 ea inhalation QDAY 08/11/23 10/15/24 H istory 62.5 mcg-vilant 25 mcg inhalat.powder (Trelegy Ellipta) fluticasone propionate 50 2 spray intranasal QDAY PRN 08/11/2311/03 History mcg/actuation nasal allergy symptoms spray,suspension melatonin 5 mg tablet 10 mg PO HS PRN insomnia 08/11/23 History empagliflozin 10 mg tablet 10 mg PO DAILY #90 tabs 12/03/23 5 Rx (Jardiance) omeprazole 40 mg capsule,delayed 40 mg PO QDAY 12/22/23 10/15/24 History release spironolactone 25 mg tablet 25 mg PO DAILY #30 tabs 03/24/24 5 Rx calcium 333 mg-magnesium 133 mg-D3 1 tab PO DAILY 04/19/24 10/15/24 History 1.67 mcg-zinc 5 mg tablet dofetilide 125 mcg capsule 125 mcg PO BID 04/19/24 10/15/24 History sucralfate 100 mg/mL oral 10 ml PO ACHS PRN stoma 04/28/24 5 History suspension furosemide 20 mg tablet 40 mg PO QDAY 07/27/24 10/15/24 History apixaban 5 mg tablet 5 mg PO BID #180 tabs 09/24/24 10/15/24 Rx metoprolol succinate 25 mg 50 mg PO BID 09/29/24 10/15/24 History tablet,extended release 24 hr Have you fallen [...] atrial fibrillation Chronic diastolic (congestive) heart failure 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 Sister No problems noted. Brother Vinces diseaseBrother Wilsons disease Social History Smoking Status: Former smoker alcohol intake: never substance use type: does not use caffeine: Yes Type: coffee Number of servings: 1 what type of physical activity do you participate in: walking frequency: daily seatbelt use: always do you feel safe at home: Yes HPI LUMBAR SPINE Details: This documentation accurately reflects the service provided and the decisions made by me, Dr. Dragan Fink MD 10/15/24 1029. Part of today?s visit was documented by Malini Mukherjee MA and Ada Jaeger PA-C, acting as scribe. ELIZABETH PERSAUD is a 79 year old F here today for lumbar spine MRI review and nervetesting. Patient would like to go over the MRI results and the nerve testing results to see what the next step is. She had a recent injection in the right hip by Dr. Moreno. Says that this injection did help some. Patient denies any physical therapy. Says that a week ago she had a pacemaker put in at [facility]. Last carpal tunnel surgery on her right hand was over 10 years ago. HPI from 08/17/24: ELIZABETH PERSAUD is a 79 year old F here today for lumbar spine pain. This has been going on for a couple months. Patient went to Dr. Moreno about a month ago for an injection. The injection in the back didn't work. Patient says she had [address] Moreno on the same day, denies any other injections. Her lower back is worse at night. The pain in her lower back is a sharp pain. Sometimes she gets weak when she walk. Sometimes thepain goes down into the right hip and the right groin. Patient had an ablation in 2023. Working and sitting too much makes the pain worse. At night she has tosleep with the right leg propped up high. Patient was scheduled for last for PT, but she didn't go due to having increased issues with her positional vertigo. She stated that she has to reschedule it. Right sided groin pain. Fusion of neck done 30 years ago. Says that she gets muscle cramps in her sternocleidomastoid muscle. Has positional vertigo so says that she has had decreased balance due to this. Has had some trips, no falls. Says that she has left sided carpal tunnel which has caused some numbness and tingling. She is right hand dominant and denies any other dexterity issues of her right hand. Says that she feels like the neck is swollen. Takes tylenol over the counter andwill use Voltaren gel over her lower back with benefit. Says that she has a history of kidney disease and so was discouraged from using the topical Voltaren or other oral NSAIDs by her family doctor. No diabetes, hx of COPD, has O2 at home and only used once in the last 6 months, takes Eliquis for A Fib. Sees cardiology. 30 years ago had a discectomy at L4-5 which she said resolved her pain. Says that she also has left carpal tunnel that has been worsening. She has had right carpal tunnel release in the past. Patient wears a lift in her right shoe. Ortho Exam General General: Yes no acute distress Neurologic: Yes alert and Yes oriented x3 Spine SPINE TESTING CERVICAL THORACIC LUMBAR Musculoskeletal Strength 0=absent - 5=normal Details: Neurological exam of the upper and lower extremities shows 5x5 power. Normal sensations across all dermatomes. No hyperreflexia. There is mild right sided paraspinal tenderness of the lumbar, and midline tenderness of the neck. Left Phalen's, Tinel's, and median nerve compression test positive. Physical examination of the left hand showed thenar atrophy. Physical examination of the neck shows a well healed incision and physical examination of the back shows a well-healed midline incision. Sonali's negative. Romberg's negative. Internalrotation of the right hip increased pain. Figure 4 and Gaenslen's both increasedpain on the right side. Coding Level of Care Code Off vis,est,level 4 Diagnoses Lumbar radiculopathy M54.16 Degeneration of intervertebral disc of lumbar region with discogenic back pain and lower extremity pain M51.362 Disc-related pain type: discogenic back pain and lower extremity pain Neck pain with history of cervical spinal surgery M54.2; Z98.890 Carpal tunnel syndrome of left wrist G56.02 Time Spent (min) 35 Assessment and Plan Assessment and Plan (1) Lumbar radiculopathy: Status: Acute (2) Degenerative disc disease, lumbar: Status: Acute Qualifiers: Disc-related pain type: discogenic back pain and lower extremity pain Qualified Code(s): M51.362 - Other intervertebral disc degeneration, lumbar region with discogenic back pain and lower extremity pain (3) Neck pain with history of cervical spinal surgery: Status: Acute (4) Carpal tunnel syndrome of left wrist: Status: Acute Plan Again reviewed prior x-rays show a levoscoliosis, multilevel disc height loss worse at L4-5 with vacuum phenomenon on extension view. Cervical x-rays show a prior C3-5 fusion with screw breakage at C5, there is also a anterolisthesis of C5 on C6 and C6 on C7 with instability on dynamic views. Reviewed right hip x-rays from July 29, 2024 which showed arthrosis of the right hip. Reviewed EMG of the left upper extremity from 09/15/24 which showed a moderate left carpal tunnel syndrome. Reviewed lumbar MRI from 09/25/24 which showed a L4-5 moderate stenosis. Explained imaging findings in detail. Due to the EMG findings and physical exam findings of a positive Tinel's, Phalen's, and median nerve compression recommended a left sided carpal tunnel release. Explained the procedure in detail. Explained risks and benefits of the surgery. The risks include but are not limited to infection, bleeding, hematoma formation, need for further surgery, incomplete relief, persistent weakness, persistent numbness, persistent wasting, tourniquet positive, compartment syndrome, nerve injury. Patient understands and agrees to proceed with surgery. 10/25/24 0711 <Electronically signed by Dragan Fink MD> Cosigner Signature (if applicable): CC: Dr. Dragan Fink MD; Dr. Minerva Shaver MD~ Signed [facility] Work Phone: [phone] Consult note Author Robert Ojeda [facility] Note Date/Time October 25, 2024 7:05 am [facility] Medical Records Department [address] [place] [address] Pre-Anesthesia Evaluation 10/25/24 0652 MR#: [id number] Acct: [id number] Name: ELIZABETH PERSAUD Rep #:[id number] : 1945 79 From: Robert Ojeda MD PCP: Dr. Minerva Shaver MD Status:REG S DC Y Race: C [facility]: [facility] ASA Classification* ASA Classification ASA Classification: 3 Assessment & Plan Anesthesia* Anesthesia Assessment Anesthesia Assessment: Discussed sedation and/or anesthesia options, risks, benefits, and alternatives with patient/parents/legal guardian/POA. Questions invited. The patient/parents/legal guardian/POA seems to understand and agrees to proceedwith anesthesia plan. Reviewed the physical assessment, medical history, allergy history and patient home medications list prior to surgery/procedure/anesthetic and documented any changes. Performed airway and anesthesia risk assessments. Anesthesia Type Anesthesia Type: MAC History Source History Obtained from:: Patient and Chart Anesthesia Focused Assessment* Temperature: 97.5 F Pulse Rate: 89 Blood Pressure: 127/82 Respiratory Rate: 14 Pulse Ox: 97 Oxygen Delivery Method: Room Air Airway Assessment Mouth opens: >3 cm Mallampati Score: I Teeth Condition: Dentures (Patient has full top and bottom dentures. Top will stay in. Bottom will come out.) Neck Range of motion (ROM): Full ROM (Slight decrease in extension) Labs Anesthesia Preop lab: CBC WBC 10.5 K/mm3 (4.4-11.0) 07/31/24 22:34 07/31/24 RBC 4.61 M/mm3 (4.2-5.4) 07/31/24 22:34 07/31/24 Hgb 14.7 g/dL (12.0-15.0) 07/31/24 22:34 07/31/24 Hct 42.9 % (37-47) 07/31/24 22:34 07/31/24 Plt Count 320 K/mm3 (150-450) 07/31/24 22:34 07/31/24 CHEMISTRY Potassium 4.2 mmol/L (3.3-5.1) 09/29/24 11:56 09/29/24 Sodium 140 mmol/L (133-145) 09/29/24 11:56 09/29/24 Magnesium 2.1 mg/dL (1.5-2.2) 07/31/24 22:34 07/31/24 Phosphorus 4.1 mg/dL (2.7-4.5) 09/17/24 16:09 09/17/24 BUN 34 mg/dL (4-19) H 09/29/24 11:56 09/29/24 Creatinine 0.96 mg/dL (0.70-1.20) 09/29/24 11:56 09/29/24 Glucose 100 mg/dL (70-99) H 09/29/24 11:56 09/29/24 POC Glucose 150 mg/dL (70-110) H 11/01/18 02:58 11/01/18 TSH 4.480 uIU/mL (0.300-4.200) H 07/31/24 22:34 COAG PT 17.8 SECONDS (11.7-14.9) H 08/08/22 16:20 07/12 INR 2.0 06/08/19 11:19 06/08/19 Pre-Assessment Diagnosis/Proposed Procedure Planned Operative Procedure(s): Carpal tunnel release. Left wrist. Anesthesia History Anesthesia History - therapeutic assistant: Anesthesia History - therapeutic assistant Hx Hospitalization Yes: 10-03 PACEMAKER, A-FIB 10/22/24 10:36 Any Problems With Anesthesia No 10/22/24 10:36 Cholinesterase deficiency No 10/22/24 10:36 You/Your Family Experience No 10/22/24 10:36 fever (hyperthermia) with Relationship Recent Exposure to Contagious No 10/25/24 06:28 Disease Does patient have nerve No 10/22/24 10:36 stimulator Patient instructed to have device shut off --Does patient have Pacemaker Yes 10/25/24 06:28 or ICD? When Was Last Pacemaker Check QUESTION #4 FULL TEXT: You/Your Family Experience fever (hyperthermia) with Anesthesia Last Oral Intake Last Oral intake: Last Oral Intake NPO since 00:00 10/25/24 06:28 Meds taken in AM with sips of Yes 10/25/24 06:28 water? Meds patient instructed to take am of surgery Any additional information?: Yes NPO since: 02:00 Meds taken in AM with sips of water?: Yes Meds patient instructed to take am of surgery: Gabapentin at 2 AM. PONV PONV - therapeutic assistant: PONV - therapeutic assistant Female Yes 10/22/24 10:36 HX of Motion Sickness Yes 10/22/24 10:36 HX of N/V After Surgery No 10/22/24 10:36 Non-Smoker Yes 10/22/24 10:36 Duration of Surgery greater No 10/22/24 10:36 than 60 minutes Number of Risk Factors 3 10/22/24 10:36 PONV Score Moderate Risk 10/22/24 10:36 Height & Weight Height & Weight: Anesthesia: Height & Weight Height 5 ft 1 in 10/25/24 06:28 Weight: 62 kg 10/25/24 06:28 Body Mass Index (BMI) 25.8 10/25/24 06:28 Respiratory Assessment Respiratory Assessment - therapeutic assistant: Respiratory Tract Infection Hx - therapeutic assistant Hx Respiratory Tract Infection No 10/22/24 10:36 STOP Sleep Apnea STOP Sleep Apnea - therapeutic assistant: STOP Sleep Apnea - therapeutic assistant Hx Hypertension Yes: ON MEDS 10/22/24 10:36 [...] Tobacco Use History Tobacco Use History - therapeutic assistant: Tobacco Use History - therapeutic assistant Tobacco Use Non-smoker 08/11/23 09:13 Smoking Status Former smoker 10/22/24 10:36 Hx Tobacco Use No 10/22/24 10:36 Years Smoking Packs Smoked per Day Smoking Cessation Date was No - quit smoking greater 10/22/24 10:36 within the last 15 years than 15 years ago Hx Smoking Cessation Date Hx Smoking Cessation No 10/22/24 10:36 Counseling Hematologic Medial History Hematologic Hx - therapeutic assistant: 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 Specify any problems Hx of Preganancy in last 3 No 10/22/24 10:36 Months Nurse Filling Out Transfusion NADIYA 10/22/24 10:36 & Questions: Date: 10/22/24 10/22/24 10:36 Time: 10:38 10/22/24 10:36 Patient unable to answer at this time (ie. confused, unrespo /Reproduction History /Reproductive History - therapeutic assistant: /Reproductive Hx- therapeutic assistant Hx Now No 10/22/24 10:36 Gestational Age (in weeks): EDC: Hx Hx Para Hx Section SAB No 10/22/24 10:36 Active Medications Active Medications: Current Medications Generic Name Dose Route Start Last Admin Trade Name Freq PRN Reason Stop Dose Admin Cefazolin Sodium 2 gm/ Sodium 110 mls @ 150 mls/hr 10/25/24 07:30 Chloride IV 10/25/24 08:13 INTRAOP ONE Lactated Ringer's 1,000 mls @ 15 mls/hr 10/25/24 06:15 10/25/24 06:46 IV 15 mls/hr .Q48H GARRY Administration PFSH Medical History Wears hearing aid Wears dentures Stroke/cerebrovascular accident [...] atrial fibrillation Chronic diastolic (congestive) heart failure 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 Cardiomyopathy in other [...] tablet 10 mg PO DAILY #90 tabs 10/22/24 Rx (Jardiance) omeprazole 40 mg capsule,delayed 40 mg PO QDAY 4 Unknown History release spironolactone 25 mg tablet 25 mg PO DAILY #30 tabs Unknown Rx calcium 333 mg-magnesium 133 mg-D3 1 tab PO DAILY 02/02 Unknown History 1.67 mcg-zinc 5 mg tablet sucralfate 100 mg/mL oral 10 ml PO ACHS PRN stoma 04/11 01/02 Unknown History suspension furosemide 20 mg tablet 60 mg PO QDAY 07/27/24 Unkno wn History apixaban 5 mg tablet 5 mg PO BID #180 tabs 10/22/24 Rx metoprolol succinate 25 mg 50 mg PO BID 09/29/2409/30 History tablet,extended release 24 hr gabapentin 100 mg capsule 100 mg PO TID 10/22/2410/25 02:00 History nystatin 100,000 unit/mL oral 1 ml PO .qid PRN thrush 10/22/24 Unknown History suspension Allergy/AdvReac Type Severity Reaction Status Date / Time etodolac Allergy Intermediate Other Verified 10/25/24 06:26 diltiazem HCl (From Cardizem) Allergy Swelling Verified 10/25/24 06:26 of face and neck naproxen Allergy Swelling Verified 10/25/24 06:26 (whole body) prednisone Allergy Other Verified 10/25/24 06:26 amiodarone AdvReac Severe Severe Verified 10/25/24 06:26 dyspnea after taking PO Amiodarone adhesive AdvReac Rash Verified 10/25/24 06:26 albuterol AdvReac Other Verified 10/25/24 06:26 codeine AdvReac Vomiting Verified 10/25/24 06:26 hydrocodone bitartrate (From AdvReac Vomiting Verified 10/25/24 06:26 Vicodin) morphine AdvReac Vomiting Verified 10/25/24 06:26 Family History Sister Afib Father CAD (coronary artery disease) Brother CVA (cerebral vascular accident) Mother No problems noted. Sister No problems noted. Brother Wilsons disease Brother Wilsons disease Surgical History Hx of atrioventricular node ablation [...] do you feel safe at home: Yes Review of Systems (Anesthesia) ROS Narrative System reviewed and no additional complaints, except as documented. 10/25/24704 <Electronically signed by Robert clarke MD> Date _ Robert Ojeda MD Cosigner Signature: Date CC: ~ Signed [facility] Work Phone: [phone] 606-476106-16-[address] [facility] Medical Records Department [address] [place] [address] Operative Report 10/25/24 0819 MR#: [id number] Acct: [id number] Name: ELIZABETH PERSAUD Rep #:[id number] : 1945 79 From: Dragan Fink MD PCP: Dr. Minerva Shaver MD Status:REG S DC Location: AC02-1 Procedures Musculoskeletal 20xxx-29xxx: Other Procedure See Report Operative Report (Standard) Operative Information Date of Procedure: 10/25/24 Pre-Operative Diagnosis: Left Carpal tunnel syndrome Post-Operative Diagnosis: Same Surgery/Procedure Performed: Left carpal tunnel release outcomes manager: Yes Emr Specialist: Ada Jaeger Tasks completed by blood bank assistant: Closing and Retracting Type of Anesthesia: Local MAC RN Documented Start/Stop Times: Operation Date: 10/25/24 07:30 Case Time Into Pre-Op 10/25/24 06:11 Out of Pre-Op 10/25/24 07:23 Anesthesia Start 10/25/24 07:27 Into Room 10/25/24 07:27 Procedure Start 10/25/24 07:46 Procedure End 10/25/24 08:02 Anesthesia End 10/25/24 08:04 Out of Room 10/25/24 08:04 Into Recovery 10/25/24 08:05 Procedure Start Time: 07:46 Procedure Stop Time: 08:02 Select all DRAINS/GRAFTS/IMPLANTS that apply: None Estimated Blood Loss: 5 cc Specimen collected: No Description of surgery: ATTENDING SURGEON: Dragan Fink MD CORPORATE TAX PREPARER: none PREOPERATIVE DIAGNOSIS: Left carpal tunnel syndrome. POSTOPERATIVE DIAGNOSIS: Left carpal tunnel syndrome. PROCEDURE PERFORMED: Left open carpal tunnel release. CPT 68849 INDICATIONS FOR THE PROCEDURE: The patient is a 79-year-old lady, who presents with numbness in radial fingers and EMG, consistent with carpal tunnel syndrome.All conservative management and failed. After a discussion of the risks and benefits of the procedure, consent was signed for the procedure. DETAILS OF PROCEDURE: Patient was met in the preoperative holding area and the correct side was marked as the operative extremity. The patient was brought back to the operative suite and a hand table was placed. A tourniquet was placed on the left arm. A timeout was performed which correctly identified the procedure to be performed, the operative site as well as the team members. Next, MAC anesthesia was induced. Local infiltration of 1% lidocaine mixed with 0.5% ropivacaine was infiltrated in the volar wrist. Next, the arm was prepped and draped in a sterile fashion. A timeout was performed again that confirmed the site and the procedure. Next, the patient's arm was exsanguinated using the Esmarch bandage and the tourniquet was inflated to 250 mmHg. A incision was made longitudinally in line between the middle & ring ray from Harmon's cardinal line to the wrist crease. Sharp dissection was used to the level of the palmar fascia. This was incised in line with the incision in line with its fibers. Kasden retractors used to retract the fat and the fibers out of the way and revealed the transverse carpal ligament. This was incised in the proximal distal fashion to the level of the palmar fat. Once we saw this, we retracted back in order to release the proximal end of the carpal tunnel ligament. The median nerve was visualized in its entirety throughout this part of the procedure. There were no masses in the carpal tunnel noted. The nerve did not look very hyperemic. Once I was satisfied with the release and it was checked both proximally and distally with a finger in the incision, it was irrigated with copious amounts of normal saline. Wound was then closed with 4-0 nylon in interrupted fashion. Skin was cleaned and the tourniquet was let down. The wounds were dressed with Adaptic, gauze, Webril and a sterile Layla wrap. Next, the patient was transported to the PACU in stable condition. I was present for the entire case. ESTIMATED BLOOD LOSS: Minimal. COMPLICATIONS: None. DISPOSITION: The patient will be discharged home when pain is controlled from PACU. Follow up in 2 weeks to get sutures removed. Light weightbearing restrictions. Surgical Findings: See operative note Complications Complications: No 10/25/24 08 Cosigner Signature (if applicable): CC: Dr. Dragan Fink MD; Dr. Minerva Shaver MD~ Signed [facility]06-16-2025 Consult note [facility] Medical Records Department [address] [place] [address] Anesthesia Postop Eval I 10/25/24 0809 MR#: [id number] Acct: [id number] Name: ELIZABETH PERSAUD Rep #:[id number] : 1945 79 From: Yudy Mota TECHNICAL SOLUTIONS CONSULTANT PCP: Dr. Minerva Shaver MD Status:REG S DC Y Race: C Location: [place] [address] Anesthesia: Postop Eval I Current Vital Signs Temperature: 97.3 F Pulse Rate: 90 Blood Pressure: 107/73 Respiratory Rate: 16 Pulse Ox: 92 Oxygen Delivery Method: Room Air Assessment Airway patent: Yes Spontaneous unlabored respirations: Yes Mental status: Awake nausea: No Vomiting: No Anesthesia Complication: No Fluid Hydration Crystalloid volume administer (ml): 300 Total IV fluid infused: 300 Progress Note Anesthesia document: Postop Eval 1 completed: Yes 10/25/[address] TECHNICAL SOLUTIONS CONSULTANT> Date _ Yudy Mota TECHNICAL SOLUTIONS CONSULTANT Cosigner Signature: Date CC: ~ Signed [facility]06-16-2025 History and physical note [facility] Medical Records Department [address] [place] [address] History & Physical Exam 10/25/24 0711 MR#: [id number] Acct: [id number] Name: ELIZABETH PERSAUD Rep #:[id number] : 1945 79 From: Dragan Fink MD PCP: Dr. Minerva Shaver MD Status:REG S DC Location: [place] [address] History and Physical MR#: [id number] Acct: [id number] Name: ELIZABETH PERSAUD Celsa Rep #: [id number] : 1945 Provider: Dr. Dragan Fink MD Age/Sex: 79/F Location: [facility] Status: Signed Intake Vital Signs 08/17/2510:00 09/30/2511:27 10/15/2509:29 Height 5 ft 1 in 5 ft 5 ft Weight: 135 lb BMI 26.4 Intake Visit Reasons: LUMBAR SPINE Chief Complaint: Lumbar spine MRI review and nerve test Accompanied by: Self Is patient in pain?: No Allergies etodolac Allergy (Intermediate, Verified 10/15/24 10:32) Otherdiltiazem HCl (From Cardizem) Allergy (Verified 10/15/24 10:32) Swelling of face and necknaproxen Allergy (Verified 10/15/24 10:32) Swelling (whole body)prednisone Allergy (Verified 10/15/24 10:32) Otheramiodarone Adverse Reaction (Severe, Verified 10/15/24 10:32) Severe dyspnea after taking PO Amiodaroneadhesive Adverse Reaction (Verified 10/15/24 10:32) Rashalbuterol Adverse Reaction (Verified 10/15/24 10:32) Othercodeine Adverse Reaction (Verified 10/15/24 10:32) Vomitinghydrocodone bitartrate (From Vicodin) Adverse Reaction (Verified 10/15/24 10:32) Vomitingmorphine Adverse Reaction (Verified 10/15/24 10:32) Vomiting Medications ?Medication ?Instructions ?Recorded ?Confirmed ?Type multivitamin with folic acid 400 1 tab PO DAILY supplement 03/15/1310/15 History mcg tablet cyclobenzaprine 10 mg tablet 10 mg PO HS PRN muscle spasm 07/25/22 History fluticasone fur. 100 mcg-umeclid 1 ea inhalation QDAY 08/11/23 10/15/24 H istory 62.5 mcg-vilant 25 mcg inhalat.powder (Trelegy Ellipta) fluticasone propionate 50 2 spray intranasal QDAY PRN 08/11/2311/03 History mcg/actuation nasal allergy symptoms spray,suspension melatonin 5 mg tablet 10 mg PO HS PRN insomnia 08/11/23 History empagliflozin 10 mg tablet 10 mg PO DAILY #90 tabs 12/03/23 5 Rx (Jardiance) omeprazole 40 mg capsule,delayed 40 mg PO QDAY 12/22/23 10/15/24 History release spironolactone 25 mg tablet 25 mg PO DAILY #30 tabs 03/24/24 5 Rx calcium 333 mg-magnesium 133 mg-D3 1 tab PO DAILY 04/19/24 10/15/24 History 1.67 mcg-zinc 5 mg tablet dofetilide 125 mcg capsule 125 mcg PO BID 04/19/24 10/15/24 History sucralfate 100 mg/mL oral 10 ml PO ACHS PRN stoma 04/28/24 5 History suspension furosemide 20 mg tablet 40 mg PO QDAY 07/27/24 10/15/24 History apixaban 5 mg tablet 5 mg PO BID #180 tabs 09/24/24 10/15/24 Rx metoprolol succinate 25 mg 50 mg PO BID 09/29/24 10/15/24 History tablet,extended release 24 hr Have you fallen [...] atrial fibrillation Chronic diastolic (congestive) heart failure 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 Dragan Fink MD 10/15/24 1029. Part of today?s visit was documented by Malini Mukherjee MA and Ada Jaeger PA-C, acting as scribe. ELIZABETH PERSAUD is a 79 year old F here today for lumbar spine MRI review and nervetesting. Patient would like to go over the MRI results and the nerve testing results to see what the next step is. She had a recent injection in the right hip by Dr. Moerno. Says that this injection did help some. Patient denies any physical therapy. Says that a week ago she had a pacemaker put in at [facility]. Last carpal tunnel surgery on her right hand was over 10 years ago. HPI from 08/17/24: ELIZABETH PERSAUD is a 79 year old F here today for lumbar spine pain. This has been going on for a couple months. Patient went to Dr. Moreno about a month ago for an injection. The injection in the back didn't work. Patient says she had [address] Moreno on the same day, denies any other injections. Her lower back is worse at night. The pain in her lower back is a sharp pain. Sometimes she gets weak when she walk. Sometimes thepain goes down into the right hip and the right groin. Patient had an ablation in 2023. Working and sitting too much makes the pain worse. At night she has tosleep with the right leg propped up high. Patient was scheduled for last for PT, but she didn't go due to having increased issues with her positional vertigo. She stated that she has to reschedule it. Right sided groin pain. Fusion of neck done 30 years ago. Says that she gets muscle cramps in her sternocleidomastoid muscle. Has positional vertigo so says that she has had decreased balance due to this. Has had some trips, no falls. Says that she has left sided carpal tunnel which has caused some numbness and tingling. She is right hand dominant and denies any other dexterity issues of her right hand. Says that she feels like the neck is swollen. Takes tylenolover the counter andwill use Voltaren gel over her lower back with benefit. Says that she has a history of kidney disease and so was discouraged from using the topical Voltaren or other oral NSAIDs by her family doctor. No diabetes, hx of COPD, has O2 at home and only used once in the last 6 months, takes Eliquis for A Fib. Sees cardiology. 30 years ago had a discectomy at L4-5 which she said resolved her pain. Says that she also has left carpal tunnel that has been worsening. She has had rightcarpal tunnel release in the past. Patient wears a lift in her right shoe. Ortho Exam General General: Yes no acute distress Neurologic: Yes alert and Yes oriented x3 Spine SPINE TESTING CERVICAL THORACIC LUMBAR Musculoskeletal Strength 0=absent - 5=normal Details: Neurological exam of the upper and lower extremities shows 5x5 power. Normal sensations across all dermatomes. No hyperreflexia. There is mild right sided paraspinal tenderness of the lumbar, and midline tenderness of the neck. Left Phalen's, Tinel's, and median nerve compression test positive. Physical examination of the left hand showed thenar atrophy. Physical examination of the neck shows a well healed incision and physical examination of the back shows a well-healed midline incision. Sonali's negative. Romberg's negative. Internalrotation of the right hip increased pain. Figure 4 and Gaenslen's both increasedpain on the right side. Coding Level of Care Code Off vis,est,level 4 Diagnoses Lumbar radiculopathy M54.16 Degeneration of intervertebral disc of lumbar region with discogenic back pain and lower extremity pain M51.362 Disc-related pain type: discogenic back pain and lower extremity pain Neck pain with history of cervical spinal surgery M54.2; Z98.890 Carpal tunnel syndrome of left wrist G56.02 Time Spent (min) 35 Assessment and Plan Assessment and Plan (1) Lumbar radiculopathy: Status: Acute (2) Degenerative disc disease, lumbar: Status: Acute Qualifiers: Disc-related pain type: discogenic back pain and lower extremity pain Qualified Code(s): M51.362 - Other intervertebral disc degeneration, lumbar region with discogenic back pain and lower extremity pain (3) Neck pain with history of cervical spinal surgery: Status: Acute (4) Carpal tunnel syndrome of left wrist: Status: Acute Plan Again reviewed prior x-rays show a levoscoliosis, multilevel disc height loss worse at L4-5 with vacuum phenomenon on extension view. Cervical x-rays show a prior C3-5 fusion with screw breakage at C5, there is also a anterolisthesis of C5 on C6 and C6 on C7 with instability on dynamic views. Reviewed right hip x- rays from July 29, 2024 which showed arthrosis of the right hip. Reviewed EMG of the left upper extremity from 09/15/24 which showed a moderate left carpal tunnel syndrome. Reviewed lumbar MRI from 09/25/24 which showed a L4-5 moderate stenosis. Explained imaging findings in detail. Due to the EMG findings and physical exam findings of a positive Tinel's, Phalen's, and median nerve compression recommended a left sided carpal tunnel release. Explained the procedure in detail. Explained risks and benefits of the surgery. The risks include but are not limited to infection, bleeding, hematoma formation, need for further surgery, incomplete relief, persistent weakness, persistent numbness, persistent wasting, tourniquet positive, compartment syndrome, nerve injury. Patient understands and agrees to proceed with surgery. 10/25/24 0711 Cosigner Signature (if applicable): CC: Dr. Dragan Fink MD; Dr. Minerva Shaver MD~ Signed [facility]06-16-[address]25 [facility]06-16-2025 Consult note [facility] Medical Records Department [address] [place] [address] Pre-Anesthesia Evaluation 10/25/24 0652 MR#: [id number] Acct: [id number] Name: ELIZABETH PERSAUD Rep #:[id number] : 1945 79 From: Robert Ojeda MD PCP: Dr. Minerva Shaver MD Status:REG S DC Y Race: C Location: [place] [address]- ASA Classification* ASA Classification ASA Classification: 3 Assessment & Plan Anesthesia* Anesthesia Assessment Anesthesia Assessment: Discussed sedation and/or anesthesia options, risks, benefits, and alternatives with patient/parents/legal guardian/POA. Questions invited. The patient/parents/legal guardian/POA seems to understand and agrees to proceedwith anesthesia plan. Reviewed the physical assessment, medical history, allergy history and patient home medications list prior to surgery/procedure/anesthetic and documented any changes. Performed airway and anesthesia risk assessments. Anesthesia Type Anesthesia Type: MAC History Source History Obtained from:: Patient and Chart Anesthesia Focused Assessment* Temperature: 97.5 F Pulse Rate: 89 Blood Pressure: 127/82 Respiratory Rate: 14 Pulse Ox: 97 Oxygen Delivery Method: Room Air Airway Assessment Mouth opens: >3 cm Mallampati Score: I Teeth Condition: Dentures (Patient has full top and bottom dentures. Top will stay in. Bottom will come out.) Neck Range of motion (ROM): Full ROM (Slight decrease in extension) Labs Anesthesia Preop lab: CBC WBC 10.5 K/mm3 (4.4-11.0) 07/31/24 22:07/31/24 RBC 4.61 M/mm3 (4.2-5.4) 07/31/24 22:07/31/24 Hgb 14.7 g/dL (12.0-15.0) 07/31/24 22:34 07/31/24 Hct 42.9 % (37-47) 07/31/24 22:07/31/24 Plt Count 320 K/mm3 (150-450) 07/31/24 22:34 07/31/24 CHEMISTRY Potassium 4.2 mmol/L (3.3-5.1) 09/29/24 11:56 09/29/24 Sodium 140 mmol/L (133-145) 09/29/24 11:56 09/29/24 Magnesium 2.1 mg/dL (1.5-2.2) 07/31/24 22:34 07/31/24 Phosphorus 4.1 mg/dL (2.7-4.5) 09/17/24 16:09 09/17/24 BUN 34 mg/dL (4-19) H 09/29/24 11:56 09/29/24 Creatinine 0.96 mg/dL (0.70-1.20) 09/29/24 11:56 09/29/24 Glucose 100 mg/dL (70-99) H 09/29/24 11:56 09/29/24 POC Glucose 150 mg/dL (70-110) H 11/01/18 02:58 11/01/18 TSH 4.480 uIU/mL (0.300-4.200) H 07/31/24 22:34 COAG PT 17.8 SECONDS (11.7-14.9) H 08/08/22 16:20 03/ INR 2.0 06/08/19 11:19 06/08/19 Pre-Assessment Diagnosis/Proposed Procedure Planned Operative Procedure(s): Carpal tunnel release. Left wrist. Anesthesia History Anesthesia History - therapeutic assistant: Anesthesia History - therapeutic assistant Hx Hospitalization Yes: 10-03 PACEMAKER, A-FIB 10/22/24 10:36 Any Problems With Anesthesia No 10/22/24 10:36 Cholinesterase deficiency No 10/22/24 10:36 You/Your Family Experience No 10/22/24 10:36 fever (hyperthermia) with Relationship Recent Exposure to Contagious No 10/25/24 06:28 Disease Does patient have nerve No 10/22/24 10:36 stimulator Patient instructed to have device shut off --Does patient have Pacemaker Yes 10/25/24 06:28 or ICD? When Was Last Pacemaker Check QUESTION #4 FULL TEXT: You/Your Family Experience fever (hyperthermia) with Anesthesia Last Oral Intake Last Oral intake: Last Oral Intake NPO since 00:00 10/25/24 06:28 Meds taken in AM with sips of Yes 10/25/24 06:28 water? Meds patient instructed to take am of surgery Any additional information?: Yes NPO since: 02:00 Meds taken in AM with sips of water?: Yes Meds patient instructed to take am of surgery: Gabapentin at 2 AM. PONV PONV - therapeutic assistant: PONV - therapeutic assistant Female Yes 10/22/24 10:36 HX of Motion Sickness Yes 10/22/24 10:36 HX of N/V After Surgery No 10/22/24 10:36 Non-Smoker Yes 10/22/24 10:36 Duration of Surgery greater No 10/22/24 10:36 than 60 minutes Number of Risk Factors 3 10/22/24 10:36 PONV Score Moderate Risk 10/22/24 10:36 Height & Weight Height & Weight: Anesthesia: Height & Weight Height 5 ft 1 in 10/25/24 06:28 Weight: 62 kg 10/25/24 06:28 Body Mass Index (BMI) 25.8 10/25/24 06:28 Respiratory Assessment Respiratory Assessment - therapeutic assistant: Respiratory Tract Infection Hx - therapeutic assistant Hx Respiratory Tract Infection No 10/22/24 10:36 STOP Sleep Apnea STOP Sleep Apnea - therapeutic assistant: STOP Sleep Apnea - therapeutic assistant Hx Hypertension Yes: ON MEDS 10/22/24 10:36 [...] than talking or can be heard through closeddoors)? 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 Specify any problems Hx of Preganancy in last 3 No 10/22/24 10:36 Months Nurse Filling Out Transfusion JZOLLTELLY 10/22/24 10:36 & Questions: Date: 10/22/24 10/22/24 10:36 Time: 10:38 10/22/24 10:36 Patient unable to answer at this time (ie. confused, unrespo /Reproduction History /Reproductive History - therapeutic assistant: /Reproductive Hx- therapeutic assistant Hx Now No 10/22/24 10:36 Gestational Age (in weeks): EDC: Hx Hx Para Hx Section SAB No 10/22/24 10:36 Active Medications Active Medications: Current Medications Generic Name Dose Route Start Last Admin Trade Name Freq PRN Reason Stop Dose Admin Cefazolin Sodium 2 gm/ Sodium 110 mls @ 150 mls/hr 10/25/24 07:30 Chloride IV 10/25/24 08:13 INTRAOP ONE Lactated Ringer's 1,000 mls @ 15 mls/hr 10/25/24 06:15 10/25/24 06:46 IV 15 mls/hr .Q48H GARRY Administration PFSH Medical History Wears hearing aid Wears dentures Stroke/cerebrovascular accident [...] tablet 10 mg PO DAILY #90 tabs 10/22/24 Rx (Jardiance) omeprazole 40 mg capsule,delayed 40 mg PO QDAY 4 Unknown History release spironolactone 25 mg tablet 25 mg PO DAILY #30 tabs Unknown Rx calcium 333 mg-magnesium 133 mg-D3 1 tab PO DAILY 02/02 Unknown History 1.67 mcg-zinc 5 mg tablet sucralfate 100 mg/mL oral 10 ml PO ACHS PRN stoma 04/11 01/02 Unknown History suspension furosemide 20 mg tablet 60 mg PO QDAY 07/27/24 Unkno wn History apixaban 5 mg tablet 5 mg PO BID #180 tabs 10/22/24 Rx metoprolol succinate 25 mg 50 mg PO BID 09/29/2409/30 History tablet,extended release 24 hr gabapentin 100 mg capsule 100 mg PO TID 10/22/2410/25 02:00 History nystatin 100,000 unit/mL oral 1 ml PO .qid PRN thrush 10/22/24 Unknown History suspension Allergy/AdvReac Type Severity Reaction Status Date / Time etodolac Allergy Intermediate Other Verified 10/25/24 06:26 diltiazem HCl (From Cardizem) Allergy Swelling Verified 10/25/24 06:26 of face and neck naproxen Allergy Swelling Verified 10/25/24 06:26 (whole body) prednisone Allergy Other Verified 10/25/24 06:26 amiodarone AdvReac Severe Severe Verified 10/25/24 06:26 dyspnea after taking PO Amiodarone adhesive AdvReac Rash Verified 10/25/24 06:26 albuterol AdvReac Other Verified 10/25/24 06:26 codeine AdvReac Vomiting Verified 10/25/24 06:26 hydrocodone bitartrate (From AdvReac Vomiting Verified 10/25/24 06:26 Vicodin) morphine AdvReac Vomiting Verified 10/25/24 06:26 Family History Sister Afib Father CAD (coronary artery disease) Brother CVA (cerebral vascular accident) Mother No problems noted. Sister No problems noted. Brother Wilsons disease Brother Wilsons disease Surgical History Hx of atrioventricular node ablation [...] do you feel safe at home: Yes Review of Systems (Anesthesia) ROS Narrative System reviewed and no additional complaints, except as documented. 10/25/24704 tricia HICKS> Date _ Robert Ojeda MD Cosigner Signature: Date CC: ~ Signed [facility]06-13-2025 Instructions* Patient Instructions* Dianna Ballard APRN.[facility] - 10/22/2024 9:02 AM EDT - Continue taking furosemide (Lasix) as prescribed. - Stop taking Tikosyn and your potassium supplement per hospital instructions. - Stop Eliquis on Friday before your carpal tunnel surgery; call your mgmt analyst today to let them know and confirm any specific instructions. - Use Nystatin obomy-uid-auhtoqc twice daily for up to 14 days [...] breath or if it worsens, contact your mgmt analyst. documented in this encounterSelect [facility] [place]25 NoteHNO ID: [id number] Author: DIANNA BALLARD APRN.CNP Service: ? Author Type: Nurse Practitioner Type: Progress Notes Filed: 10/22/2024 10:38 Note Text: CC: Patient presents with: Recheck: Hospital follow up HPI Elizabeth Persaud is a 79 year old female who presents today for hospital follow up. Recording using Binpress software for draft documentation of the visit was discussed with the patient/authorized direct marketing representative; all questions welcomed and answered. Patient/authorized direct marketing representative agreed to proceed Atrial Fibrillation: - [...] Concerns about Fitbit affecting pacemaker; has messaged marker shipments for clarification. - denies chest pain, palpitations, [...] left Dr. Manuel Hoover - Dr. Alessio Welch PAST SURGICAL HISTORY OF NECK SURGERY, anterior [...] YRS/> REDUCIBLE 07/17/2010 Hernia repair, umbilical >5yr [facility] Dr Manuel Hoover SH[facility] COSMETIC SURGERY [...] mg capsule Take (more content not included)... [facility]06-13-2025 History of Present illness Narrative* Dianna Ballard APRN.[facility] - 10/22/2024 8:55 AM EDT CC: Patient presents with: Recheck: Hospital follow up HPI Elizabeth Persaud is a 79 year old female who presents today for hospital follow up. Recording using Binpress software for draft documentation of the visit was discussed with the patient/authorized direct marketing representative; all questions welcomed and answered. Patient/authorized direct marketing representative agreed to proceed Atrial Fibrillation: - Recent hospitalization at [facility] for atrial fibrillation with rapid ventricular response; heart rateranged from 140-180 bpm. - Underwent unsuccessful cardioversion, followed by ablation and pacemaker placement. - Discharged on 11/08 after a 7-day stay. - Previously on Tikosyn, discontinued due to lack of efficacy. - Currently taking Eliquis, scheduled to stop tomorrow for upcoming carpal tunnel surgery. - Concerns about Fitbit affecting pacemaker; has messaged marker shipments for clarification. - denies chest pain, palpitations, [...] left Dr. Manuel Hoover - Dr. Alessio Welch PAST SURGICAL HISTORY OF NECK SURGERY, anterior fusion PAST SURGICAL HISTORY OF Face lift PAST SURGICAL HISTORY OF back surgery PAST SURGICAL HISTORY OF bilat foot surgey, bunionectomy PAST SURGICAL HISTORY OF benign tumor removed from right breast PAST SURGICAL HISTORY OF 03/2011 B/L cataract surgery with implants- Dr Jacob gAuilar at [facility] PAST SURGICAL HISTORY OF 07/27/2015 cryo ablation, cardiac PAST SURGICAL HISTORY OF cardiac ablation [facility]PR UMBILICAL HRNA 5 YRS/> REDUCIBLE 07/17/2010 Hernia repair, umbilical >5yr [facility] Dr Manuel Hoover SHX COSMETIC SURGERY [...] mouth three times a day as needed. oijzsvftliz-hmrxxbrgs-igzzsmat (TRELEGY ELLIPTA) 100-62.5-25 mcg inhalation powder Inhale [...] 1,000 mg by mouth five times daily. NKXNBUJ-MUMXEZUOO-ALRQ ORAL Take by mouth. FAMILY HISTORY Problem [...] Annual Wellness Visit due on 05/12/2024 Covid-19 Vaccine(2023- season) due on 07/22/2025 Annual PCP Team [...] atrial fibrillation with rapid ventricular response. - Sanitarian Inspector to adjust pacemaker settings to 60 bpm after scar tissue formation. - Continue Eliquis; patient to hold Eliquis for upcoming carpal tunnel surgery. - Advised patient to inform mgmt analyst about upcoming surgery and current symptoms of [...] improve lung expansion. - Discuss symptoms with mgmt analyst. - follow up for any new issues or further concerns. Prescription instructions reviewed with patient as applicable. Potential red flag symptoms discussed with the patient. Reviewed appropriate action plan to take if red flag symptoms occur. Patient agreeable to treatment plan. Dianna Ballard APRN.CNP documented in this encounterSelect [facility]ty [facility] [place]06-11-2025 Telephone encounter Note * Telephone Encounter - Toshia Jaquez LPN - 10/20/2024 9:02 AM EDT Patient has been identified by name and date of : Yes Patient phones for refill(s): Requested Prescriptions Pending Prescriptions Disp Refills omeprazole (PRILOSEC) 40 mg capsule 180 capsule 3 Sig: Take 1 capsule by mouth once daily. Date of last office visit in primary care: 08/11/2024 Date of next office visit in primary care: 10/22/2024 Please advise. Thank you. Toshia Jaquez LPN. [facility]06-11-2025 Miscellaneous Notes* Telephone Encounter - Toshia Jaquez LPN - 10/20/2024 9:02 AM EDT Patient has been identified by name and [...] you. Toshia Jaquez LPN. documented in this encounterSelect Medical [facility]ty [facility] [place]06-09-2025 NoteHNO ID: [id number] Author: MAYA VELAZQUEZ RN Service: ? Author Type: Registered Nurse Type: Progress Notes Filed: 10/18/2024 11:23 Note Text: Transitional Care Management (TCM) Follow-Up Note PCP Update / Actionable Items N/A - No specialty updates needed Patient Source: Ljt-yi-Ncpcoyq (OON) Discharge Outreach Summary: Patient reports she is feeling well, she has future labs ordered to be drawn prior to her PCP appt on 10/22/24. No acute or worsening concerns at this time, nor further questions. Follow Up Cardiology appointments at [facility] and also [facility] upcoming. Contact: Contact made with patient: [...] Maya Velazquez RN October 18, 2024 11:12 [facility]06-09-2025 History of Present illness Narrative* Maya Velazquez RN - 10/18/2024 11:11 AM EDT Transitional Care Management (TCM) Follow-Up Note PCP Update / Actionable Items N/A - No specialty updates needed Patient Source: Xob-ys-Fwjitpg (OON) Discharge Outreach Summary: Patient reports she is feeling well, she has future labs ordered to be drawn prior to her PCP appt on 10/22/24. No acute or worsening concerns at this time, nor further questions. Follow Up Cardiology appointments at [facility] and also [facility] upcoming. Contact: Contact made with patient: [...] scheduling or changing your follow-up appointments? Patient alreadyhas an appointment scheduled EDUCATION: Patient and family educated on issues/questions related to reason for admission, transition of care topics, and follow-up needed upon discharge. Utilization Education - Where to go for Care Where to Go for Care Maya Velazquez RN October 18, 2024 11:12 AM documented in this encounterSelect Medical Specialty [facility] [place]06-09-2025 NotePatient Outreach (AMBCMG) ELIZABETH PERSAUD ([id number]) 1945 [facility] Date Time Provider Department 10/18/24 MAYA VELAZQUEZ AMBUnique During your visit today, we recorded the following information about you: Maya Velazquez RN 10/18/2024 11:23 AM Signed Transitional Care Management (TCM) Follow-Up Note PCP Update / Actionable Items N/A - No specialty updates needed Patient Source: Qxh-kk-Riucmbe (OON) Discharge Outreach Summary: Patient reports she is feeling well, she has future labs ordered to be drawn prior to her PCP appt on 10/22/24. No acute or worsening concerns at this time, nor further questions. Follow Up Cardiology appointments at [facility] and also [facility] upcoming. Contact: Contact made with patient: [...] 125 mcg two times a day. - rndxgefzbvu-dwetrtxce-psmapdfs (TRELEGY ELLIPTA) 100-62.5-25 mcg inhalation powder Inhale [...] mg by mouth five times daily. - ASTBOCA-XJUGAHVGO-JHQR ORAL Take by mouth. 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 [place] [address] Pacemaker Check Date of Service: 10/14/24 1326 MR#: [id number] Acct: [id number] Name: ELIZABETH PERSAUD Rep #: [id number] : 1945 From: Cande jacob Age/Sex: 79/F [place] [facility] [place] Signed Billing Codes PM Device Codes: 51906 PM Dev Prog Eval, Single Assessment and Plan Assessment and Plan (1) Presence of cardiac pacemaker: Status: Chronic (2) Complete AV block: Status: Chronic Comment: Acquired from AVN ablation (3) Hx of atrioventricular node ablation: Status: Chronic 10/14/24 1329 > Date _ Cande Black Signature: Date (if applicable) CC: ~ [facility]06-05-2025 Evaluation note* Diagnosis Onset Date Resolution Status Admit Date Complete AV block chronic October 9:56am Hx of atrioventricular node ablation chronic October 14, 2024 9 :56am Presence of cardiac pacemaker chroni c October 14, 2024 9:56am Carpal tunnel syndrome of le ft wrist acute October 15, 2024 1 0:28am Degenerative disc disease, lumbar acute October 15, 2024 1 0:28am Lumbar radiculopathy acute October 15, 2024 10:28am Neck pain with history of cervical spinal surgery acute October 10:28am Status post carpal tunnel release inactive November 09, 2024 9 :30am Presence of permanent cardia c pacemaker acute November 17, 2024 9 :23am Hx of atrioventricular node ablation chronic November 17, 2024 9 :23am Presence of cardiac pacemaker chroni c November 17, 2024 9:23am Presence of permanent cardia c pacemaker acute January 25, 2025 2:27pm Complete AV block chronic Septemb er 2024 2:27pm Presence of cardiac pacemaker chroni c January 25, 2025 2:27pm Degenerative disc disease, lumbar acute January 26, 2025 8:53am Degenerative scoliosis acute Se ptember 2024 8:53am Osteoarthritis of right hip acute January 26, 2025 8:53am 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 January 27, 2025 10:54am Presence of permanent cardia c pacemaker acute January 27, 2025 10:54am Chronic diastolic (congestiv e) heart failure chronic January 27, 2025 10:54am Paroxysmal atrial fibrillation chron ic January 27, 2025 10:54am [place] [facility] Work Phone: [phone]) [phone] NoteHNO ID: [id number] Author: LAITH MONTES MD Service: ? Author Type: Physician Type: Progress Notes Filed: 10/14/2024 08:47 Note Text: Recently hospitalized in September with persistent atrial fibrillation and flutter and Klebsiella pyelonephritis. S/p PPM.[facility]06-05-2025 History of Present illness Narrative* Laith Montes MD - 10/14/2024 8:45 AM EDT Recently hospitalized in September with persistent atrial fibrillation and flutter and Klebsiella pyelonephritis. S/p PPM. documented in this encounterSelect Medical [facility]ty [facility] [place]06-02-2025 NoteHNO ID: [id number] Author: MAYA VELAZQUEZ RN Service: ? Author Type: Registered Nurse Type: Progress Notes Filed: 10/11/2024 10:31 Note Text: Transition Care Management (TCM) Initial Outreach PCP Update / Actionable Items HRTIC TCM Home Visit Referral Source of Stratification: TCM HUB Hospital Admission Status: Discharged Readmission Risk Score: NA Patient's zip code: [address] Is zip code within program service area: Y Patient meets program referral criteria: No Patient does not qualify for High Risk TCM Home Visit program due to: Readmission Risk Score does not meet criteria Disposition: Patient does not qualify for HRTIC, will provide TCM outreach follow-up for 30-days Patient Source: Oqu-oj-Uexzfyb (OON) Discharge Outreach Summary: Patient reports she was admitted to [facility] for uncontrolled Afib after two ablations and multiple cardioversion's. She underwent a procedure for a Pacemaker/ICD. She is feeling so much better, she reports. Patient follows Cardiology at [facility] and [facility] device. Her device is monitored by [facility], she reports. Follow up Hospital DC appt in place with PCP and Cardiology with [facility] and [facility]. No acute or worsening symptoms nor further questions at this time. Patient discharged from [facility] Discharge date: 10/08/24 Admitted for: Uncontrolled AFib Readmission Risk: NA Value-Based Contract: America MANN Contact: Contact made with patient: Yes Hi, my name is Maya Velazquez RN and I am calling from the [facility] on behalf of your Primary Care Provider, [...] I will send your request to a planner/scheduler who will contact and assist you with [...] Maya Velazquez RN October 11, 2024 10:12 [facility]06-02-2025 History of Present illness Narrative* Maya Velazquez RN - 10/11/2024 10:11 AM EDT Transition Care Management (TCM) Initial Outreach PCP Update / Actionable Items HRTIC TCM Home Visit Referral Source of Stratification: TCM HUB Hospital Admission Status: Discharged Readmission Risk Score: NA Patient's zip code: [address] Is zip code within program service area: Y Patient meets program referral criteria: No Patient does not qualify for High Risk TCM Home Visit program due to: Readmission Risk Score does not meet criteria Disposition: Patient does not qualify for HRTIC, will provide TCM outreach follow-up for 30-days Patient Source: Sqk-lk-Ltdoksw (OON) Discharge Outreach Summary: Patient reports she was admitted to [facility] for uncontrolled Afib after two ablations and multiple cardioversion's. She underwent a procedure for a Pacemaker/ICD. She is feeling so much better, she reports. Patient follows Cardiology at [facility] and with [facility] for the device. Her device is monitored by [facility], she reports. Follow up HospitalDC appt in place with PCP and Cardiology with [facility] and [facility]. No acute or worsening symptoms nor further questions at this time. Patient discharged from [facility] Discharge date: 10/08/24 Admitted for: Uncontrolled AFib Readmission Risk: NA Value-Based Contract: America MANN Contact: Contact made with patient: Yes Hi, my name is Maya Velazquez RN and I am calling from the [facility] on behalf of your Primary Care Provider, Minerva Shaver MD. I understand you were recently in the hospital, so I am callingto check in with you to ensure you [...] provider to ensure you have safely transitioned home.If you are agreeable, I will send your request to a planner/scheduler who will contact and assist you with that appointment. This will give you an opportunity to ask any questions or address any concerns youmay have with your PCP. Inform the patient that if they have any questions or concerns prior to that appointment, to call their PCP's office right away. Appointment Action: No action required; patient already has appointment scheduled. Education details: Patient and family educated on issues/questions related to reason for admission,transition of care topics, and follow-up needed upon discharge. Utilization Education - Where to go for Care Where to Go for Care Maya Velazquez RN October 11, 2024 10:12 AM documented in this encounterSelect Medical Specialty [facility] [place]06-02-2025 NotePatient Outreach (AMBCMG) ELIZABETH PERSAUD ([id number]) 1945 F [facility] Date Time Provider Department 10/11/24 MAYA VELAZQUEZ During your visit today, we recorded the following information about you: Maya Velazquez RN 10/11/2024 10:31 AM Signed Transition Care Management (TCM) Initial Outreach PCP Update / Actionable Items HRTIC TCM Home Visit Referral Source of Stratification: [facility] Hospital Admission Status: Discharged Readmission Risk Score: NA Patient's zip code: [address] Is zip code within program service area: Y Patient meets program referral criteria: No Patient does not qualify for High Risk TCM Home Visit program due to: Readmission Risk Score does not meet criteria Disposition: Patient does not qualify for HRTIC, will provide TCM outreach follow-up for 30-days Patient Source: Gza-zl-Akppaqz (OON) Discharge Outreach Summary: Patient reports she was admitted to [facility] for uncontrolled Afib after two ablations and multiple cardioversion's. She underwent a procedure for a Pacemaker/ICD. She is feeling so much better, she reports. Patient follows Cardiology at [facility] and with [facility] for the device. Her device is monitored by [facility], she reports. Follow up Hospital DC appt in place with PCP and Cardiology with [facility] and [facility]. No acute or worsening symptoms nor further questions at this time. Patient discharged from [facility] Discharge date: 10/08/24 Admitted for: Uncontrolled AFib Readmission Risk: NA Value-Based Contract: America MANN Contact: Contact made with patient: Yes Hi, my name is Maya Velazquez RN and I am calling from the [facility] on behalf of your Primary Care Provider, [...] I will send your request to a planner/scheduler who will contact and assist you with [...] TAPE (ADHESIVE TAPE (RO (more content not included)...[facility] 10-08-2024 Nurse Note* Nursing Notes - Dalia Arguelles RN - 10/08/2024 1:11 PM EDT AVS printed and reviewed with patient. PM education completed. IV and telemetry discontinued. Patient going to discharge suite. [facility]05-30-2025 Miscellaneous Notes* Nursing Notes - Dalia Arguelles RN - 10/08/2024 1:11 PM EDT AVS printed and reviewed with patient. PM education completed. IV and telemetry discontinued. Patient going to discharge suite. * Plan of Care - Ok Rojas RN - 10/04/2024 9:20 AM EDT Problem: Dysrhythmia Goal: Normalized Cardiac Rhythm Outcome: [...] Management: airway patency maintained calming measures promoted * Plan of Care - Ok Rojas RN - 10/02/2024 1:13 PM EDT Patient remains AF HR: 125-163, IV Metoprolol [...] charted. Awaiting for ablation. [facility] in [facility] History of Present illness Narrative* Clau Suh RN - 10/08/2024 12:44 PM EDT Care Management Discharge Note Patient will discharge home. Transport Request Mode of Transfer: Private Vehicle Patient medically stable for discharge per physician/medical team. Patient/Ventilated Rib Fitter remain inagreement with the discharge plan. KHUSHBU Cabral, RN Clinical Clinical Operations Leader Available by secure chat. * Saul Craig MD - 10/08/2024 11:29 AM EDT Electrophysiology Consult SIGN OFF - device looks [...] team. Saul Craig MD 10/08/24 11:29 AM * MILTON Doty - 10/07/2024 2:29 PM EDT Care Management Progress Note Expected Discharge Date: 10/08/2024 Referred Level of Care: Home Barriers: Medical readiness Current Referrals and Status None required CM following for potential discharge planning needs. AV Node Ablation and PM Generator Implant today with EP. Leonora ROSE-S Clinical Operations Leader [facility] * Jessica Ley MD - 10/07/2024 2:08 PM EDT Hospital Medicine Progress Note Patient: Elizabeth Persaud, [...] the past, most recently had DCCV in [place] on 09/30/24, returned to [facility] after 5 hours. EKG on admission reveals A Fib with RVR with VR 141. Trial IV Metop 5 mg x 3 doses to control HR below 120; will avoid CCB given her mildly reduced EF. [id number] Score: 7 (for CHF, HTN, age, TIA and gender). - [id number] 7 - Continue Home Toprol XL 75 [...] outpatient vitamins Complexity. Wound Documentation Pacemaker/Defibrillator Site 10/07/24 5376 (Active) Placement Date/Time: 10/07/241335 Location: left upper chest Any conditions listed below are present on admission unless otherwise specified. . Patient has implanted cardiac device DVT prophylaxis with SCD Anticipated Disposition: Home after AVN and PPM placement Code status is Full Code Jessica Ley MD [facility] Medicine Interval History / Subjective Has been NPO since midnight. Does have swelling in her legs, which she reports is normal for her ifshe sits a good amount. Objective Temp: [97.5 [...] 43/1.15/104/24/-- (10/08 303) Ptt/Pt/Inr: 95.1/13.7/1.1 (10/08 303-10/07 1018) Cosigned by Pedro Beal MD at 10/07/2024 [...] Continue GDMT S/p 5d treatment for pyelo * Lázaro Mata - 10/07/2024 8:53 AM EDT Department of Pharmacy Admission Medication [...] receives discounts on her prescriptions through the [facility] for 90 day supplies Furosemide - Patient also has 40 mg tablets at home - reports taking 60 mg daily Metoprolol succinate - Dose had changed multiple times prior to admission, most recent home dose was 50 mg twice daily, but only took this dose for a few days SAT TUTOR Please feel free to contact me with any further questions. Name: Lázaro Mata Phone #: [phone] Date/Time: 10/07/2024 8:54 AM Time Spent: 25 minutes Cosigned by Jennifer Davis RPH at 10/07/2024 11:10 AM EDT Associated attestation - Jennifer Davis RP - 10/07/2024 11:10 AM EDT Department of Pharmacy Admission Medication Reconciliation Note Patient: Elizabeth Persaud Room/Bed: 7006/A I have reviewed the home medication list with the Dry Transfer Man. The home medication list status is: complete. All changes to the home medication list have been updated in [facility]. Updated SAT TUTOR Med List: Prior to Admission Medications Prescriptions [...] 3 doses are missed, contact the prescribing marker shipments as soon as possible. Empagliflozin (Jardiance) 10 [...] spray Si sprays by Nasal route daily. amqczmgoqsg-stwxqhkhw-Cgrlqb (Trelegy Ellipta) 100-62.5-25 MCG/ACT Aerosol Powder, breath activatedinhaler Sig: Inhale 1 puff daily. furOSEmide 20 MG tablet Sig: Take 3 tablets by mouth daily. Note (10/07/2024): Patient also has 40 mg tablets at home - reports taking 60 mg daily omeprazole [address] capsule Sig: Take 1 capsule by mouth daily. Facility-Administered Medications: None Please feel free to contact me with any further questions. Name: Jennifer Davis [facility] Phone #: [phone] Date/Time: 10/07/2024 11:10 AM * Anuel Cortes MD - 10/06/2024 7:08 PM EDT [facility] Medicine Progress Note Patient: Elizabeth Persaud, [...] the past, most recently had DCCV in [place] on 09/30/24, returned to [facility] after 5 hours - EKG on admission reveals A Fib with RVR with VR 141 - Trial IV Metop 5 mg x 3 doses to control HR below 120; will avoid CCB given her mildly reduced EF - Continue Home Toprol XL 50 mg q12h. Stopping Tikosyn 125 mg q12h - [id number] Score: 7 (for CHF, HTN, age, TIA [...] antibiotics given complete resolution of symptoms and leukocytosiswith PM placement on 10/07. On 10/06, CBC drawn for heparin ggt shows leukocytosis. If this continuesto rise, consider extending duration. Chronic HmrEF Hypertension [...] and cognition Data Review WBC/Hgb/Hct/Plts: 13.16/13.9/42.9/320 (10/06 1329) Na/K+/Phos/Mg/Ca: 141/4.5/--/--/-- (10/06 0555) Bun/Creat/Cl/CO2/Glucose: 37/0.84/106/25/-- (10/06 0555) Ptt/Pt/Inr: 27.4/--/-- (10/06 5554) * Anuel Cortes MD - 10/05/2024 1:06 PM EDT [facility] Medicine Progress Note Patient: Elizabeth Persaud, [...] the past, most recently had DCCV in [place] on 09/30/24, returned to RVR after 5 hours - EKG on admission reveals A Fib with RVR with VR 141 - Trial IV Metop 5 mg x 3 doses to control HR below 120; will avoid CCB given her mildly reduced EF - Continue Home Toprol XL 50 mg q12h. Stopping Tikosyn 125 mg q12h - [id number] Score: 7 (for CHF, HTN, age, TIA [...] 41/0.94/107/21/-- (10/05 626) Ptt/Pt/Inr: 28.3/14.6/1.1 (10/05 626) * Candida Joe - 10/05/2024 11:23 AM EDT Inpatient Cardiopulmonary Rehab Consultation Completed. RN approved, as tolerated, and patient agreeable to visit. Patient reports feeling fine without complaints. Activity Session: Patient telemetry showing Afib RVR at this time. Scheduled pacemaker for later this admission. Willfollow up for activity whenever able. RN notified/aware. Encouraged continued ambulation and discussed appropriate activity progression. Patient participation in outpatient pulmonary rehab was discussed s/p COPD dx. Patient is interestedin participating in rehab at their local facility: [facility]. AMB REFERRAL TO PULMONARY REHAB HAS BEEN PENDED. PLEASE REVIEW AND SIGN ORDER PRIOR TO DISCHARGE SOTHE AMB REFERRAL CAN BE SENT TO APPROPRIATE [...] MS CEP Inpatient Cardiopulmonary & Vascular Rehab * Anuel Cortes MD - 10/04/2024 11:26 AM EDT [facility] Medicine Progress Note Patient: Elizabeth Persaud, [...] the past, most recently had DCCV in [place] on 09/30/24, returned to RVR after 5 [...] mg BID for stroke risk reduction with [id number]-DPCa Score: 7 (for CHF, HTN, age, TIA [...] (10/04 28-10/04 256) Bun/Creat/Cl/CO2/Glucose: 37/0.82/106/22/-- (10/04 28) * Anuel Cortes MD - 10/03/2024 10:55 AM EDT Hospital Medicine Progress Note Patient: Elizabeth Persaud, [...] the past, most recently had DCCV in [place] on 09/30/24, returned to RVR after 5 [...] mg BID for stroke risk reduction with FFQ3YG1-EGOw Score: 7 (for CHF, HTN, age, TIA [...] Ox3, appropriate affect and cognition Data Review * Janneth Figueroa RN - 10/02/2024 5:07 PM EDT Discharge Planning Assessment Is the patient able to participate in the assessment?: Yes Discharge Planning Summary 1. Plan at this time is discharge home with family support 2. [facility], support system and will Provide transportation. 3. Patient assessment completed. Case Management Plan 1. Identified self and role as Special Education Inclusion Teacher. 2. Confirmed and updated demographics and treatment team. 3. Special Education Inclusion Teacher will continue to follow with medical team [...] Yes Name and Contact information: Dickson Andrade [phone] [facility] Referral to Social Work to Identify Legal Next of Kin?: No Reviewed and Updated in Demographics? : Yes Advanced Care Planning Has the patient completed Advance Directives?: Completed, Available in Medical Record Reviewed for accuracy with patient?: Yes Advanced Directives on File: HealthCare Power of Authorization Representative, Living Will Medication Management Does the patient have prescription insurance coverage? : Yes Is the patient on Anticoagulation? : Yes Provider or Clinic that manages Anticoagulation?: [facility] [place] [address] [address] [facility] [address] Living Environment and Support System Is the patient from a facility or care home?: No Living Environment: House Patient Caregiving Responsibilities: [...] care for themselves at home? : No [employer] Solution Architect Does the patient or direct marketing representative express financial concerns? : No Janneth RÍOS RN Clinical Special Education Inclusion Teacher Please note that I am a float keycase assembler and may not cover the same service every day. Please call the main Case Management office at [phone] for up-to-date coverage. Verified patients identity using date of . Appropriate PPE utilized. * Anuel Cortes MD - 10/02/2024 11:04 AM EDT Hospital Medicine Progress Note Patient: Elizabeth Persaud, [...] the past, most recently had DCCV in [place] on 09/30/24, returned to RVR after 5 [...] mg BID for stroke risk reduction with [id number]-MWBu Score: 7 (for CHF, HTN, age, TIA [...] Ptt/Pt/Inr: 27.5/13.9/1.1 (10/01 2144) [facility] Discharge instructions* Discharge Instructions* Jessica Ley MD - 10/06/2024 2:53 PM [...] the care and services we provide at [facility]. We truly appreciate you taking the time to fill this out. We particularly welcome any specific comments you may have (good or bad!) regarding [facility] so that we may use them to continue to strive towards excellence for our patients. * Attachments The following attachments cannot be sent through Care Everywhere. * Care After Ablation ([facility]) ([place]amibian) * Pacemaker: A Guide to Your ([facility]) ([place]am[place]ian) documented in this [facility]25 NotePatient Outreach (INTMMN) ELIZABETH PERSAUD ([id number]) 1945 F LAUREN Date Time Provider Department 10/05/24 MINERVA SHAVER INTNEETA During your visit today, we recorded the [...] [Z79.899] Order(s):BASIC METABOLIC PANEL [SQBMP] Order #: [id number] FUTURE COMPLETE BLOOD COUNT [SQCBC] Order #: [id number] FUTURE MAGNESIUM [SQMG1] Order #: [id number] FUTURE Prescriptions as of 10/08/2024 - fluticasone (FLONASE) 50 mcg/actuation nasal spray Use 2 Sprays in each nostril once daily. Rinse mouth after use. - benzonatate (TESSALON PERLE) 100 mg capsule Take 1 capsule by mouth three times a day as needed. - dofetilide (TIKOSYN) 125 mcg capsule 125 mcg two times a day. - jesfmjqyjze-lmtgjmbre-jqdotxdq (TRELEGY ELLIPTA) 100-62.5-25 mcg inhalation powder Inhale [...] mg by mouth five times daily. - LOKECCH-KPSDUGJGN-JBQW ORAL Take by mouth. Problem List As [...] disease (HCC) [I73.9] 06/30/2023 Encounter Status:Closed [facility]24[facility] Plan of care note* Plan of Care - Ok Rojas RN - 10/04/2024 9:20 AM EDT Problem: Dysrhythmia Goal: Normalized Cardiac Rhythm Outcome: [...] Management: airway patency maintained calming measures promoted [facility]05-24-2025 Plan of care note* Plan of Care - Ok Rojas RN - 10/02/2024 1:13 PM EDT Patient remains AF HR: 125-163, IV Metoprolol [...] Medications given as charted. Awaiting for ablation. [facility]05-24-2025 Consult note* Morenita Garza MD - 10/02/2024 7:23 AM EDTAssociated Order(s): IP CONSULT TO CARDIOLOGY - EP EP [...] but was in setting of rapid afib. S he has been continuously anticoagulated. She reports severe [...] Resource Strain: Low Risk (06/22/2024) Received from [facility] Overall Financial Resource Strain (CARDIA) Difficulty of Paying Living Expenses: Not hard at all Food Insecurity: No Food Insecurity (06/22/2024) Received from [facility] Hunger Vital Sign Worried About Running Out of Food in the Last Year: Never true Ran Out of Food in the Last Year: Never true Transportation Needs: No Transportation Needs (06/22/2024) Received from [facility] PRAPARE - Transportation Lack of Transportation (Medical): No Lack of Transportation (Non-Medical): No Physical Activity: Sufficiently Active (06/22/2024) Received from [facility] Exercise Vital Sign Days of Exercise per Week: 4 days Minutes of Exercise per Session: 60 min Stress: No Stress Concern Present (06/22/2024) Received from [facility] [place] of Occupational Health - Occupational Stress Questionnaire Feeling of Stress : Not at all Social Connections: Socially Isolated (06/22/2024) Received from [facility] Social Connection and Isolation Panel [NHANES] Frequency of Communication with Friends and Family: More than three times a week Frequency of Social Gatherings with Friends and Family: Twice a week Attends Zoroastrian Services: Never Active Member of Clubs or [...] C) tablet 1,000 mg, 1,000 mg, Daily dkwybrdfva-onsarbjukzohrf-fnmbhddgfe (BREZTRI) 160-9-4.8 MCG/ACT inhaler 1 puff, 1 [...] Dr Hernandez for input Hai Tovar M.D., [facility] Drug Abuse Social Worker of Internal Medicine [facility] [phone] [facility] Work Phone: 1(437) 160-643405-24-2025 Consult note* Moreniat Garza MD - 10/02/2024 7:23 AM EDTAssociated Order(s): IP CONSULT TO CARDIOLOGY - EP EP [...] but was in setting of rapid afib. S he has been continuously anticoagulated. She reports severe [...] Resource Strain: Low Risk (06/22/2024) Received from [facility] Overall Financial Resource Strain (CARDIA) Difficulty of Paying Living Expenses: Not hard at all Food Insecurity: No Food Insecurity (06/22/2024) Received from [facility] Hunger Vital Sign Worried About Running Out of Food in the Last Year: Never true Ran Out of Food in the Last Year: Never true Transportation Needs: No Transportation Needs (06/22/2024) Received from [facility] PRAPARE - Transportation Lack of Transportation (Medical): No Lack of Transportation (Non-Medical): No Physical Activity: Sufficiently Active (06/22/2024) Received from [facility] Exercise Vital Sign Days of Exercise per Week: 4 days Minutes of Exercise per Session: 60 min Stress: No Stress Concern Present (06/22/2024) Received from [facility] [place] of Occupational Health - Occupational Stress Questionnaire Feeling of Stress : Not at all Social Connections: Socially Isolated (06/22/2024) Received from [facility] Social Connection and Isolation Panel [NHANES] Frequency of Communication with Friends and Family: More than three times a week Frequency of Social Gatherings with Friends and Family: Twice a week Attends Zoroastrian Services: Never Active Member of Clubs or [...] C) tablet 1,000 mg, 1,000 mg, Daily cvbikwxznw-qhyzsyiuwnuioo-iqlsupdzwz (BREZTRI) 160-9-4.8 MCG/ACT inhaler 1 puff, 1 [...] Dr Hernandez for input Hai Tovar M.D., [facility] Drug Abuse Social Worker of Internal Medicine [facility] [phone] Cell documented [facility] History and physical note* Taylor Mckee MD - 10/01/2024 10:44 PM EDT Hospital Medicine Admission History & Physical Patient: [...] the past, most recently had DCCV in [place] on 09/30/24, returned to RVR after 5 [...] mg BID for stroke risk reduction with LNR1ST4-GQSo Score: 7 (for CHF, HTN, age, TIA [...] medical history of Persistent A Fib, Atrial Flutter,Chronic HFmrEF, HTN, HLD, TIA, COPD, and GERD who was directly admitted per request of EP team due to AFib with RVR. Patient has not event monitor on has been often and AFib with RVR, she was seen locally in [place] on 09/30/2024 status post cardioversion, which she reports only lasted about 5 hours, and she was back in AFib with RVR. Patient has been eating, who returned with EP team as an outpatient, and they recommended patient presents to the hospital for direct admission for rate versus rhythm control. She reports right shoulder pain, which she thinks occurs more frequently when she isin AFib RVR. She also has intermittent lightheadedness, [...] 3 doses are missed, contact the prescribing marker shipments as soon as possible. Empagliflozin (Jardiance) 10 [...] spray Si sprays by Nasal route daily. gbglcqauhsd-qknlfakzw-Mfbvrm (Trelegy Ellipta) 100-62.5-25 MCG/ACT Aerosol Powder, breath activatedinhaler Sig: Inhale 1 puff daily. furOSEmide 20 [...] erythema Skin: No jaundice or rash Neuro: vice president precision market insights 3-7, 9-11 intact and equal. Psych: Ox3, appropriate affect and cognition Data Review WBC/Hgb/Hct/Plts: 10.70/13.8/43.2/304 (10/01 2144) Na/K+/Phos/Mg/Ca: 140/4.8/4.1/2.2/9.5 (10/01 2144) Bun/Creat/Cl/CO2/Glucose: 34/0.89/103/24/99 (10/01 2144) Ptt/Pt/Inr: 27.5/13.9/1.1 (10/01 2144) EKG: I have personally reviewed the EKG displaying A Fib with RVR ith VR 141 [facility]05-23-2025 History and physical note* Taylor Mckee MD - 10/01/2024 10:44 PM EDT Hospital Medicine Admission History & Physical Patient: [...] the past, most recently had DCCV in [place] on 09/30/24, returned to RVR after 5 [...] mg BID for stroke risk reduction with CSS5MI5-BZJj Score: 7 (for CHF, HTN, age, TIA [...] medical history of Persistent A Fib, Atrial Flutter,Chronic HFmrEF, HTN, HLD, TIA, COPD, and GERD who was directly admitted per request of EP team due to AFib with RVR. Patient has not event monitor on has been often and AFib with RVR, she was seen locally in [place] on 09/30/2024 status post cardioversion, which she reports only lasted about 5 hours, and she was back in AFib with RVR. Patient has been eating, who returned with EP team as an outpatient, and they recommended patient presents to the hospital for direct admission for rate versus rhythm control. She reports right shoulder pain, which she thinks occurs more frequently when she isin AFib RVR. She also has intermittent lightheadedness, [...] 3 doses are missed, contact the prescribing marker shipments as soon as possible. Empagliflozin (Jardiance) 10 [...] spray Si sprays by Nasal route daily. tfgrieqmpgj-csbwnoqjp-Ofonbe (Trelegy Ellipta) 100-62.5-25 MCG/ACT Aerosol Powder, breath activatedinhaler Sig: Inhale 1 puff daily. furOSEmide 20 [...] erythema Skin: No jaundice or rash Neuro: vice president precision market insights 3-7, 9-11 intact and equal. Psych: Ox3, appropriate affect and cognition Data Review WBC/Hgb/Hct/Plts: 10.70/13.8/43.2/304 (10/01 2144) Na/K+/Phos/Mg/Ca: 140/4.8/4.1/2.2/9.5 (10/01 2144) Bun/Creat/Cl/CO2/Glucose: 34/0.89/103/24/99 (10/01 2144) Ptt/Pt/Inr: 27.5/13.9/1.1 (10/01 2144) EKG: I have personally reviewed the EKG displaying A Fib with RVR ith VR 141 documented [facility] Evaluation note * Diagnosis Onset Date Resolution Status Admit Date Persistent atrial fibrillati on with RVR acute September 30, 2024 1 0:52am Complete AV block chronic October 9:56am Hx of atrioventricular node ablation chronic October 14, 2024 9 :56am Presence of cardiac pacemaker chroni c October 14, 2024 9:56am Carpal tunnel syndrome of le ft wrist acute October 15, 2024 1 0:28am Degenerative disc disease, lumbar ac [place] October 15, 2024 10:28am Lumbar radiculopathy acute October 15, 2024 10:28am Neck pain with history of cervical spinal surgery acute October 10:28am Status post carpal tunnel release ac [place] November 09, 2024 9:30am Presence of permanent cardia c pacemaker acute November 17, 2024 9 :23am Hx of atrioventricular node ablation chronic November 17, 2024 9 :23am Presence of cardiac pacemaker chroni c November 17, 2024 9:23am [facility] Work Phone: [phone] Evaluation note* Diagnosis Onset Date Resolution Status Admit Date Persistent atrial fibrillati on with RVR acute September 30, 2024 1 0:52am Complete AV block chronic October 9:56am Hx of atrioventricular node ablation chronic October 14, 2024 9 :56am Presence of cardiac pacemaker chroni c October 14, 2024 9:56am Carpal tunnel syndrome of le ft wrist acute October 15, 2024 1 0:28am Degenerative disc disease, lumbar acute October 15, 2024 1 0:28am Lumbar radiculopathy acute October 15, 2024 10:28am Neck pain with history of cervical spinal surgery acute October 10:28am Status post carpal tunnel release acute November 09, 2024 9 :30am Presence of permanent cardia c pacemaker acute November 17, 2024 9 :23am Hx of atrioventricular node ablation chronic November 17, 2024 9 :23am Presence of cardiac pacemaker chroni c November 17, 2024 9:23am Presence of permanent cardia c pacemaker acute January 25, 2025 2:27pm Complete AV block chronic Septemb 2024 2:27pm Presence of cardiac pacemaker chroni c January 25, 2025 2:27pm [facility] Work Phone: 1([phone]) 805-528005-22-2025 Evaluation note* Diagnosis Onset Date Resolution Status Admit Date Persistent atrial fibrillati on with RVR acute September 30, 2024 1 0:52am Complete AV block chronic October 9:56am Hx of atrioventricular node ablation chronic October 14, 2024 9 :56am Presence of cardiac pacemaker chroni c October 14, 2024 9:56am Carpal tunnel syndrome of le ft wrist acute October 15, 2024 1 0:28am Degenerative disc disease, lumbar acute October 15, 2024 1 0:28am Lumbar radiculopathy acute October 15, 2024 10:28am Neck pain with history of cervical spinal surgery acute October 10:28am Status post carpal tunnel release acute November 09, 2024 9 :30am Presence of permanent cardia c pacemaker acute November 17, 2024 9 :23am Hx of atrioventricular node ablation chronic November 17, 2024 9 :23am Presence of cardiac pacemaker chroni c November 17, 2024 9:23am Presence of permanent cardia c pacemaker acute January 25, 2025 2:27pm Complete AV block chronic Septemb er 2024 2:27pm Presence of cardiac pacemaker chroni c January 25, 2025 2:27pm Degenerative disc disease, lumbar acute January 26, 2025 8:53am Degenerative scoliosis acute Se ptember 2024 8:53am Osteoarthritis of right hip acute January 26, 2025 8:53am [facility] Work Phone: 1(909) 470-225605-22-2025 [facility]05-07-[address] [facility] Pulmonary Services/Neurology [address] [place] [address] MR#: [id number] Acct: [id number] Name: ELIZABETH PERSAUD Rep #:[id number] : 1945 79 From: Nils Haddad MD Referring Dr: Ada Jaeger Statu s: REG CLI Location: PSN Date: 09/15/24 Sex: F C NCS and/or EMG Patient Report Ordering Doctor: Ada Jaeger DATE OF SERVICE: 09/15/24 Elizabeth presents numbness and tingling in the left hand. Electrodiagnostic findings: Left median motor nerve demonstrates normal distal latency with reducedamplitude and reduced conduction velocity. Left ulnar motor response is within normal limits. Prolonged median sensory latency at thewrist. Normal ulnar and radial sensory sponsors. Needle [...] Multi Select Codes Neurology Neurology Interp Codes: 66581-92 Musc test done w/n test comp (interp) and 49120-65 Nrv cndj tst 5-6 studies (interp) 09/15/24 1334 D> Date _ Nils Haddad MD CC: RENEE Bojorquez; Dr. Nils Haddad MD; Dr. Minerva Shaver MD ~ Date Dictated: 09/15/241324 Date Transcribed: 09/15/241324 Manager State: AA Signed [facility]04-09-2025 Radiology Diagnostic study note [facility] Imaging Services [address] [place] [address] L/S Spine Min 4 Views MR#: [id number] Acct: [id number] Name: ELIZABETH PERSAUD Rep #: [id number] : 1945 F 79 From: Adonis Fonseca MD PCP: Dr. Minerva Shaver MD Status: REG Yves WHITESIDE Study:L/S Spine Min 4 Views Date of Exam: 08/17/24 Exam# [id number] Ordering Dr: Gianni Jaeger PROCEDURE: 08/17/2024 REASON [...] IMPRESSION: Extensive lumbosacral degenerative arthropathy Reading Location: [id number] CC: RENEE Bojorquez; Dr. Minerva Shaver MD ~ Manager State: Signed [facility]04-09-2025 Radiology Diagnostic study note [facility] Imaging Services [address] [place] [address] Cerv Spine 4 or 5 Views MR#: [id number] Acct: [id number] Name: ELIZABETH PERSAUD Rep #: [id number] : 1945 F 79 From: Saadia Matthew MD PCP: Dr. Minerva Shaver MD Status: REG C STEVO Study:Cerv Spine 4 or 5 Views Date of Exam: 08/17/24 Exam# [id number] Ordering Dr: Gianni Jaeger PROCEDURE: CERV SPINE [...] approach spinal fusion C3-C5 level. Reading Location: JAYDE CC: RENEE Bojorquez; Dr. Minerva Shaver MD ~ Manager State: Signed [facility]04-08-2025 Evaluation note* Diagnosis Onset Date Resolution Status Admit Date Degenerative disc disease, lumbar ac [place] August 17, 2024 10:54am Lumbar radiculopathy acute Apri 2024 10:54am Neck pain with history of cervical spinal surgery acute August 10:54am Persistent atrial fibrillati on with RVR acute September 30, 2024 1 0:52am Complete AV block chronic October 9:56am Hx of atrioventricular node ablation chronic October 14, 2024 9 :56am Presence of cardiac pacemaker chroni c October 14, 2024 9:56am Carpal tunnel syndrome of le ft wrist acute October 15, 2024 1 0:28am Degenerative disc disease, lumbar ac [place] October 15, 2024 10:28am Lumbar radiculopathy acute October 15, 2024 10:28am Neck pain with history of cervical spinal surgery acute October 10:28am Status post carpal tunnel release ac [place] November 09, 2024 9:30am Presence of permanent cardia c pacemaker acute November 17, 2024 9 :23am Hx of atrioventricular node ablation chronic November 17, 2024 9 :23am Presence of cardiac pacemaker chroni c November 17, 2024 9:23am [facility] Work Phone: 1(415) 418-628304-02-2025 NoteHNO ID: [id number] Author: ?, ?, ? Service: ? Author Type: ? Type: Progress Notes Filed: 08/11/2024 10:06 Note Text: POPULATION HEALTH NAVIGATION OUTREACH Action/ Patient outreach for HCC gaps; AWV due 04/05. Appointment notes updated. Mychart sent. Reason for Outreach Care Gap/HCC or Scheduling Wellness Visits Care Gaps due: Medicare Annual Wellness Visit Patient Contacted: Unable or unnecessary to reach patient: MyChart message sent HCC related Updated appointment notes Navigation Signature: Mine Gonzalez August 11, 2024 10:05 [facility]04-02-2025 History of Present illness Narrative* Mine Barba - 08/11/2024 10:05 AM EDT POPULATION HEALTH NAVIGATION OUTREACH Action/FYI Patient outreach for HCC gaps; AWV due 04/05. Appointment notes updated. Mychart sent. Reason for Outreach Care Gap/HCC or Scheduling Wellness Visits Care Gaps due: Medicare Annual Wellness Visit Patient Contacted: Unable or unnecessary to reach patient: MyChart message sent HCC related Updated appointment notes Navigation Signature: Mine Gonzalez August 11, 2024 10:05 AM [facility] NoteHNO ID: [id number] Author: DIANNA BALLARD APRN.[facility]OLT SORTER Service: ? Author Type: Nurse Practitioner Type: Progress Notes Filed: 08/11/2024 10:19 Note Text: CC: Patient presents with: Dizziness: Vertigo x 6 days HPI Elizabeth Persaud is a 79 year old female who presents today for vertigo for 6 days. A week prior to this was at [place] ER for A-fib with RVR with symptoms of palpitations that were resolved with fluids and 3 doses of IV lopressor that she converted to SR. Has appointment with her marker shipments for ablation later today. Dizziness has been [...] left Dr. Manuel Hoover - Dr. Alessio Welch PAST SURGICAL HISTORY OF NECK SURGERY, anterior [...] YRS/> REDUCIBLE 07/17/2010 Hernia repair, umbilical >5yr [facility] Dr Manuel Hoover [facility] [...] capsule 125 mcg two times a day. osxnwaupnwl-xjunisbyv-nlkbdqer (TRELEGY ELLIPTA) 100-62.5-25 mcg inhalation powder Inhale [...] hours as needed for (more content not included)...[facility]04-02-2025 History of Present illness Narrative* Dianna Ballard APRN.[facility]OL[facility] SORTER - 08/11/2024 8:47 AM EDT CC: Patient presents with: Dizziness: Vertigo x 6 days HPI Elizabeth Persaud is a 79 year old female who presents today for vertigo for 6 days. A week prior to this was at [place] for A-fib with RVR with symptoms of palpitations that were resolved with fluids and 3 doses of IV lopressor that she converted to SR. Has appointment with her marker shipments for ablation later today. Dizziness has been [...] left Dr. Manuel Hoover - Dr. Alessio Welch PAST SURGICAL HISTORY OF NECK SURGERY, anterior [...] YRS/> REDUCIBLE 07/17/2010 Hernia repair, umbilical >5yr [facility] Dr Manuel Hoover SHX COSMETIC SURGERY [...] capsule 125 mcg two times a day. zkxmjutbiwn-safoslwat-qkblgege (TRELEGY ELLIPTA) 100-62.5-25 mcg inhalation powder Inhale [...] 1,000 mg by mouth five times daily. NQCZJLD-XZIVCEHSN-XUON ORAL Take by mouth. FAMILY HISTORY Problem [...] 75+ series) Never done Covid-19 Vaccine( - season) due on 07/22/2025 Annual PCP Team Chronic Disease Visit due on 08/11/2025 Diabetes Screening due on 04/21/2027 DTaP,Tdap,Td Vaccine(2 - Td or Tdap) due on 09/04/2033 Bone Density Screening Completed Spirometry Completed Influenza Vaccine Completed Advance Directive Discussion Completed Hepatitis C Screening Completed Pneumococcal Vaccine: 50+ Completed Mammogram Screening Discontinued Colorectal Cancer Screening Discontinued DATA REVIEWED: Outside chart from [facility] reviewed. ASSESSMENT/PLAN: 1. Vertigo - ICD9: 780.4, [...] M54.2 Chronic issue Has upcoming appointment with contract management specialist next week in regards to this. Prescription instructions reviewed with patient as applicable. Potential red flag symptoms discussed with the patient. Reviewed appropriate action plan to take if red flag symptoms occur. Patient agreeable to treatment plan. Dianna Ballard APRN.CNP documented in this encounterSelect [facility] [place]25 NotePatient Outreach (NETNAV) PERSAUDELIZABETH ([id number]) 1945 F [place]UR[place] Date Time Provider Department 08/11/24 MINERVA SHAVER [...] Contacted: Unable or unnecessary to reach patient: RainStorhart message sent HCC related Updated appointment notes [...] Population Health Navigation Outreach [[id number]] Cmt: America Malone Gina Prescriptions as of 08/11/2024 - fluticasone (FLONASE) 50 mcg/actuation nasal spray Use 2 Sprays in each nostril once daily. Rinse mouth after use. - benzonatate (TESSALON PERLE) 100 mg capsule Take 1 capsule by mouth three times a day as needed. - dofetilide (TIKOSYN) 125 mcg capsule 125 mcg two times a day. - wihckrttizf-bdewcarva-nadnzztm (TRELEGY ELLIPTA) 100-62.5-25 mcg inhalation powder Inhale [...] mg by mouth five times daily. - QHPWSDX-YTVNUFGVC-WJEB ORAL Take by mouth. Problem List As [...] uterovagin*12/24/2021 Moderate COPD (c (more content not included)...[facility] 08-09-2024 Telephone encounter Note* Telephone Encounter - Toshia Jaquez LPN - 08/09/2024 1:58 PM EDT Patient has been identified by name and [...] Please advise. Thank you. Toshia Jaquez LPN. [facility]03-31-2025 Miscellaneous Notes* Telephone Encounter - Toshia Jaquez LPN - 08/09/2024 1:58 PM EDT Patient has been identified by name and [...] you. Toshia Jaquez LPN. documented in this encounterSelect Medical Specialty [facility] [place]03-29-2025 NoteHNO ID: [id number] Author: TRACEY BROWN MA Service: ? Author Type: News Analyst Type: Progress Notes Filed: 08/07/2024 12:38 Note Text: POPULATION HEALTH NAVIGATION OUTREACH Action/FYI Please see ED Utilization summary below A follow-up appointment is noted to be scheduled on 10/22/24.. We are forwarding this patient to Network Navigation to schedule a sooner [place] [facility] 07/31/24 PCP follow-up appointment. Thank you [...] Tracey Oro MA August 07, 2024 12:34 [facility]03-27-2025 NoteHNO ID: [id number] Author: MAVIS SKINNER MA Service: ? Author Type: News Analyst Type: Progress Notes Filed: 08/05/2024 16:56 Note Text: POPULATION HEALTH NAVIGATION OUTREACH Action/FYI ED (07/31/24) [...] Mavis Skinner MA August 05, 2024 4:49 [facility]03-27-2025 History of Present illness Narrative* Mavis Skinner MA - 08/05/2024 4:49 PM EDT POPULATION HEALTH NAVIGATION OUTREACH Action/FYI ED (07/31/24) [...] Skinner MA August 05, 2024 4:49 PM * Naila Dodd RN - 08/05/2024 4:38 PM EDTSummary: Chart review review per request of payor ACM JOSÉ MIGUEL RN Patient identified by name and date of . Reason for review or outreach: Chart Review José Miguel Priority Emergency Department Utilization REQUESTED ACTION/: Please see ED Utilization summary below A follow-up appointment is noted to be scheduled on 10/22/24.. We are forwarding this patient to Network Navigation to schedule a sooner [place] [facility] 07/31/24 PCP follow-up appointment. Thank you Exclusion Criteria Does not meet exclusion criteria ED DIAGNOSES/REASON(S) FOR ED USE: [facility] 07/31/24 OTHER FINDINGS/SUMMARY: Unable to locate ED Summary in Care Everywhere Patient Attributed To: ISRAEL Payer: America MANN Action Taken: Referrals/Routed: Population Health Navigation: Appointment. Router to [facility] [[id number]] Contact made with patient: No, Chart review only. Signature: Naila JIANG,RN,[facility] Coding Team Lead Management Contract RN [phone] documented in this encounterSelect Medical Specialty [facility] [place]03-27-2025 NoteHNO ID: [id number] Author: NAILA DODD RN Service: ? Author [...] to Network Navigation to schedule a sooner [facility] 07/31/24 PCP follow-up appointment. Thank you Exclusion Criteria Does not meet exclusion criteria ED DIAGNOSES/REASON(S) FOR ED USE: [facility] 07/31/24 OTHER FINDINGS/SUMMARY: Unable to locate ED Summary in Care Everywhere Patient Attributed To: ISRAEL Payer: America MANN Action Taken: Referrals/Routed: Population Health Navigation: Appointment. Router to [facility] [[id number]] Contact made with patient: No, Chart review only. Signature: Naila JIANG,RN,[facility] Coding Team Lead Management Contract RN [phone]03-27-2025 NotePatient Outreach (AMBCMG) ELIZABETH PERSAUD ([id number]) 1945 F [place]UR[place] Date Time Provider Department 08/05/24 NAILA DODD During your visit today, we recorded the following information about you: Naila Dodd RN 08/05/2024 4:[address] [facility] JOSÉ MIGUEL RN Patient identified by name and date of . Reason for review or outreach: Chart Review José Miguel Priority Emergency Department Utilization REQUESTED ACTION/FYI: Please see ED Utilization summary below A follow-up appointment is noted to be scheduled on 10/22/24.. We are forwarding this patient to Network Navigation to schedule a sooner [facility] 07/31/24 PCP follow-up appointment. Thank you Exclusion Criteria Does not meet exclusion criteria ED DIAGNOSES/REASON(S) FOR ED USE: [place] 07/31/24 OTHER FINDINGS/SUMMARY: Unable to locate ED Summary in Care Everywhere Patient Attributed To: QAE Payer: America MANN Action Taken: Referrals/Routed: Population Health Navigation: Appointment. Router to [facility] [[id number]] Contact made with patient: No, Chart review only. Signature: Naila JIANG,RN,[facility] Coding Team Lead Management Contract RN [phone] Mavis Skinner MA 08/05/2024 4:56 PM Signed [...] to Network Navigation to schedule a sooner [place] [facility] 07/31/24 PCP follow-up appointment. Thank you [...] Date Reviewed: 07/22/2024 Reviewed by: Dianna Ballard APRN.BOLT SORTER - Fully Assessed Reason for Visit: ACM JOSÉ MIGUEL RN [[id number]] Cmt: Chart review review per request of payor Prescriptions as of 08/07/2024 - benzonatate (TESSALON PERLE) 100 mg capsule Take 1 capsule by mouth three times a day as needed. - dofetilide (TIKOSYN) 125 mcg capsule 125 mcg two times a day. - jojxqdwfhkz-ouuzwzuph-kdbaudyc (TRELEGY ELLIPTA) 100-62.5-25 mcg inhalation powder Inhale [...] 10.5 mg (10 million (more content not included)...[facility]03-23-2025 Discharge summary [facility] Medical Records Department [address] [place] [address] Emergency Department Summary 07/31/24 MR#: [id number] Acct: [id number] Name: ELIZABETH PERSAUD Rep #:[id number] : 1945 79 From: Saul Guzman DO [...] excessive stimulant use or illicit drug use. [facility] Medical History Osteoarthritis of right hip Right [...] loss anemia acute kidney injury clinically significant [place] Pillar abnormality or thyroiddisorder basic blood work was [...] 45.5 L Lymph % (Auto) 44.5 H Carbon % (Auto) 7.7 Eos % (Auto) 1.4 [...] diastolic (congestive) heart failure, Current use of terminal system operator anticoagulation, Hypertension Instructions: AFib Dc Prescriptions: No [...] your doctor and return to the ER shouldyou have any further concerns or worsening of symptoms Print Language: Namibian Disposition Disposition: Home, Self Care What to do if you have Problems For any increased pain, shortness of breath, bleeding, nausea or vomiting, chestpain, or any unexpected problems, contact your Primary Care Provider. Call [facility] ([phone]) or report tothe closest Emergency Room. Call 911 if necessary. 08/01/24 0017 Cosigner Signature (if applicable): CC: Dr. Minerva [...] injury or dysrhythmia change. QTc is 462. OK interval is normal at 146. 08/01/24 0018 Cosigner Signature (if applicable): cc: Dr. Minerva Shaver MD ~* Signed [facility]03-22-2025 Discharge summary Author Saul [facility] Note Date/Time August 01, 2024 12: 18am [facility] Medical Records Department [address] [place] [address] Emergency Department Summary 07/31/24 MR#: [id number] Acct: [id number] Name: ELIZABETH PERSAUD Rep #:[id number] : 1945 79 From: Saul Guzman DO [...] excessive stimulant use or illicit drug use. [facility] Medical History Osteoarthritis of right hip Right [...] loss anemia acute kidney injury clinically significant Pompeys Pillar abnormality or thyroiddisorder basic blood work was [...] 45.5 L Lymph % (Auto) 44.5 H Carbon % (Auto) 7.7 Eos % (Auto) 1.4 [...] diastolic (congestive) heart failure, Current use of jail anticoagulation, Hypertension Instructions: AFib Dc Prescriptions: No [...] concerns or worsening of symptoms Print Language: Namibian Disposition Disposition: Home, Self Care What to do if you have Problems For any increased pain, shortness of breath, bleeding, nausea or vomiting, chestpain, or any unexpected problems, contact your Primary Care Provider. Call [facility] ([phone]) or report to the closest Emergency Room. [...] injury or dysrhythmia change. QTc is 462. OK interval is normal at 146. 08/01/24 0018<Electronically signed by Saul Guzman DO> Cosigner Signature (if applicable): cc: Dr. Minerva Shaver MD ~* Signed [facility] Work Phone: 1(486) 680-280003-20-2025 Telephone encounter Note* Telephone Encounter - Tamanna Cordova MA - 07/29/2024 1:53 PM EDT [facility] papers received, on [employer] desk for review. [facility]03-20-2025 Miscellaneous Notes* Telephone Encounter - Tamanna Cordova MA - 07/29/2024 1:53 PM EDT [facility] papers received, on [employer] for review. * Telephone Encounter - Brianda Melo RN - 07/29/2024 1:20 PM EDT Patient calls back and states that she saw Dr. Moreno and Dr. Moreno wrote order for physical therapy so she is already in physical therapy. Patient states that she was just sent another message from [facility] that stated that paperwork was not filled [...] or cardiac rehab. Regards, Minerva Shaver MD * Telephone Encounter [...] for more details? Sindhu documented in this encounterSelect [facility] [place]03-20-2025 Telephone encounter Note * Telephone Encounter - Brianda Melo RN - 07/29/2024 1:20 PM EDT Patient calls back and states that she saw Dr. Moreno and Dr. Moreno wrote order for physical therapy so she is already in physical therapy. Patient states that she was just sent another message from [facility] that stated that paperwork was not filled out right. Brianda Melo RN [facility]03-20-2025 Radiology Diagnostic study note [facility] Imaging Services [address] [place], [place] [address] Hips B/L min 2 views w/ Pelvis MR#: [id number] Acct: [id number] Name: ELIZABETH PERSAUD Rep #: [id number] : 1945 F 79 From: Adrien Farrar MD PCP: Dr. Minerva Shaver MD Status: REG C STEVO Study:Hips B/L min 2 views w/ Pelvis Date of Exam: 07/29/24 Exam# [id number] Ordering Dr: Nay Moreno MD PROCEDURE: HIPS [...] on the right sideas described. Reading Location: [facility] CC: Dr. Omid Moreno MD; Dr. Minerva Shaver MD ~ Manager State: Signed [facility]03-20-2025 Telephone encounter Note* Telephone Encounter - Tamanna Cordova MA - 07/29/2024 11:12 AM EDT Left message for return call. [facility]03-20-2025 Telephone encounter Note* Telephone Encounter - Minerva Shaver MD - 07/29/2024 9:36 AM EDT Does she want Physical Therapy or gait and balance? Not sure if she will qualify for pulm or cardiac rehab. Regards, Minerva Shaver MD [facility]03-20-2025 Telephone encounter Note* Telephone Encounter - Brit [...] Burnham LPN July 29, 2024 8:15 AM [facility]03-19-2025 Telephone encounter Note* Telephone Encounter - Minerva Shaver MD - 07/28/2024 4:33 PM EDT Can some one call her and ask for more details? 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 July 27, 2024 11:00am Chronic diastolic (congestiv e) heart failure chronic July 27, 2024 11:00am Paroxysmal atrial fibrillation chron ic July 27, 2024 11:00am Degenerative disc disease, lumbar ac [place] August 17, 2024 10:54am Lumbar radiculopathy acute Apr2024 10:54am Neck pain with history of cervical spinal surgery acute August 10:54am Persistent atrial fibrillati on with RVR acute September 30, 2024 1 0:52am Complete AV block chronic October 9:56am Hx of atrioventricular node ablation chronic October 14, 2024 9 :56am Presence of cardiac pacemaker chroni c October 14, 2024 9:56am [facility] Work Phone: 1(672) 845-568603-18-2025 Evaluation note* Diagnosis Onset Date Resolution Status Admit Date 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 July 27, 2024 11:00am Chronic diastolic (congestiv e) heart failure chronic July 27, 2024 11:00am Paroxysmal atrial fibrillation chron ic July 27, 2024 11:00am Degenerative disc disease, lumbar ac [place] August 17, 2024 10:54am Lumbar radiculopathy acute 2024 10:54am Neck pain with history of cervical spinal surgery acute August 10:54am Persistent atrial fibrillati on with RVR acute September 30, 2024 1 0:52am Complete AV block chronic October 9:56am Hx of atrioventricular node ablation chronic October 14, 2024 9 :56am Presence of cardiac pacemaker chroni c October 14, 2024 9:56am Carpal tunnel syndrome of le ft wrist acute October 15, 2024 1 0:28am Degenerative disc disease, lumbar ac [place] October 15, 2024 10:28am Lumbar radiculopathy acute October 15, 2024 10:28am Neck pain with history of cervical spinal surgery acute October 10:28am [facility] Work Phone: 1(573) 822-607403-18-2025 Evaluation note* Diagnosis Onset Date Resolution Status Admit Date 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 July 27, 2024 11:00am Chronic diastolic (congestiv e) heart failure chronic July 27, 2024 11:00am Paroxysmal atrial fibrillation chron ic July 27, 2024 11:00am Degenerative disc disease, lumbar ac [place] August 17, 2024 10:54am Lumbar radiculopathy acute Apri l 2024 10:54am Neck pain with history of cervical spinal surgery acute August 10:54am Persistent atrial fibrillati on with RVR acute September 30, 2024 1 0:52am Complete AV block chronic October 9:56am Hx of atrioventricular node ablation chronic October 14, 2024 9 :56am Presence of cardiac pacemaker chroni c October 14, 2024 9:56am Carpal tunnel syndrome of le ft wrist acute October 15, 2024 1 0:28am Degenerative disc disease, lumbar ac [place] October 15, 2024 10:28am Lumbar radiculopathy acute October 15, 2024 10:28am Neck pain with history of cervical spinal surgery acute October 10:28am Status post carpal tunnel release ac [place] November 09, 2024 9:30am [facility] Work Phone: 1(719) 352-908103-18-2025 Evaluation note* Diagnosis Onset Date Resolution Status Admit Date 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 July 27, 2024 11:00am Chronic diastolic (congestiv e) heart failure chronic July 27, 2024 11:00am Paroxysmal atrial fibrillation chron ic July 27, 2024 11:00am Degenerative disc disease, lumbar ac [place] August 17, 2024 10:54am Lumbar radiculopathy acute Apri l 2024 10:54am Neck pain with history of cervical spinal surgery acute August 10:54am Persistent atrial fibrillati on with RVR acute September 30, 2024 1 0:52am Complete AV block chronic October 9:56am Hx of atrioventricular node ablation chronic October 14, 2024 9 :56am Presence of cardiac pacemaker chroni c October 14, 2024 9:56am Carpal tunnel syndrome of le ft wrist acute October 15, 2024 1 0:28am Degenerative disc disease, lumbar ac [place] October 15, 2024 10:28am Lumbar radiculopathy acute October 15, 2024 10:28am Neck pain with history of cervical spinal surgery acute October 10:28am Status post carpal tunnel release ac [place] November 09, 2024 9:30am Presence of permanent cardia c pacemaker acute November 17, 2024 9 :23am Hx of atrioventricular node ablation chronic November 17, 2024 9 :23am Presence of cardiac pacemaker chroni c November 17, 2024 9:23am [facility] Work Phone: [phone]) [phone] Telephone encounter Note* Telephone Encounter - Dianna Ballard APRN.CNP - 07/26/2024 2:06 PM EDT See TE Dianna Ballard APRN.CNP [facility]03-17-2025 Miscellaneous Notes* Telephone Encounter - Dianna Ballard APRN.CNP - 07/26/2024 2:06 PM EDT See TE Dianna Ballard APRN.CNP documented in this encounterSelect [facility] [place]03-14-2025 Telephone encounter Note * Telephone Encounter - Dianna Ballard APRN.CNP - 07/23/2024 3:07 PM EDT Letter sent. Please call and verify it has been received since it is so close to her shift starting. Thank you Dianna Ballard APRN.CNP [facility]03-14-2025 Miscellaneous Notes* Telephone Encounter - Dianna Ballard [...] 4 pm. Please advise documented in this encounterSelect [facility] [place]03-14-2025 Telephone encounter Note * Telephone Encounter - Fior Zepeda LPN - 07/23/2024 10:14 AM EDT Patient calling needs a return to work note saying she has no restrictions, she forgot to ask for this yesterday at her appt. Patient is asking to have note sent to her my chart. Patient said she works today at 4 pm. Please advise [facility]03-13-2025 NoteHNO ID: [id number] Author: DIANNA BALLARD APRN.ANITHA Service: ? Author Type: Nurse Practitioner Type: [...] left Dr. Manuel Hoover - Dr. Alessio Welch PAST SURGICAL HISTORY OF NECK SURGERY, anterior [...] YRS/> REDUCIBLE 07/17/2010 Hernia repair, umbilical >5yr [facility] Dr Manuel Hoover SHX COSMETIC SURGERY [...] capsule 125 mcg two times a day. xegsvsocpyr-yspltbjmv-usfbtrjb (TRELEGY ELLIPTA) 100-62.5-25 mcg inhalation powder Inhale [...] bedtime. MULTIVITAMIN WITH MINERALS (more content not included)...[facility]03-13-2025 History of Present illness Narrative* Dianna Ballard APRN.BOLT SORTER - 07/22/2024 9:47 AM EDT CC: Patient [...] left Dr. Manuel Hoover - Dr. Alessio Welch PAST SURGICAL HISTORY OF NECK SURGERY, anterior [...] YRS/> REDUCIBLE 07/17/2010 Hernia repair, umbilical >5yr [facility] Dr Manuel Hoover SHX COSMETIC SURGERY [...] capsule 125 mcg two times a day. stizkubkojf-jzzhdryml-khzmvjkr (TRELEGY ELLIPTA) 100-62.5-25 mcg inhalation powder Inhale [...] 1,000 mg by mouth five times daily. BMLBNJM-LBACJXDNM-GEHX ORAL Take by mouth. FAMILY HISTORY Problem [...] 75+ series) Never done Covid-19 Vaccine( - season) due on 01/11/2024 Advance Directive Discussion [...] diagnosis) Symptoms resolved, no concerns on assessment. FMLA papers signed and faxed, copy given to ptDino young to work Follow up for any further concerns - repeat CXR in 4-6 weeks - XR CHEST 2V FRONTAL/LAT Prescription instructions reviewed with patient as applicable. Potential red flag symptoms discussed with the patient. Reviewed appropriate action plan to take if red flag symptoms occur. Patient agreeable to treatment plan. Dianna Ballard APRN.CNP documented in this encounterSelect [facility]ty [facility] [place]03-06-2025 NoteHNO ID: [id number] Author: DIANNA BALLARD APRN.CNP Service: ? Author [...] left Dr. Manuel Hoover - Dr. Alessio Welch PAST SURGICAL HISTORY OF NECK SURGERY, anterior [...] YRS/> REDUCIBLE 07/17/2010 Hernia repair, umbilical >5yr [facility] Dr Manuel Hoover SHX COSMETIC SURGERY SKIN BIOPSY HX ALLERGIES Cardizem [Diltiazem Hcl], Codeine, Entex [Phenylephrine-Guaifenesin], Etodolac, Meloxicam, Naproxen, Tape [Adhesive Tape (Rosins)], Trazodone, and Zantac [Ranitidine Hcl] MEDICATIONS doxycycline (VIBRA-TABS) 100 mg tablet Take 1 tablet by mouth two times a day for 10 days. dofetilide (TIKOSYN) 125 mcg capsule 125 mcg two times a day. opedzhklkwh-ghiydgqsg-liwwmymi (TRELEGY ELLIPTA) 100-62.5-25 mcg inhalation powder Inhale [...] 6 hours as nee (more content not included)...[facility] 07-15-2024 History of Present illness Narrative* Dianna Ballard APRN.BOLT SORTER - 07/15/2024 1:43 PM EST CC: Patient [...] fibrillation (HCC) s/p ablation 07/2015 Backache, unspecified Moess's esophagus Basal cell carcinoma BPPV (benign paroxysmal [...] left Dr. Manuel Hoover - Dr. Alessio Welch PAST SURGICAL HISTORY OF NECK SURGERY, anterior [...] YRS/> REDUCIBLE 07/17/2010 Hernia repair, umbilical >5yr [facility] Dr Manuel Hoover SHX COSMETIC SURGERY SKIN BIOPSY HX ALLERGIES Cardizem [Diltiazem Hcl], Codeine, Entex [Phenylephrine-Guaifenesin], Etodolac, Meloxicam, Naproxen, Tape [Adhesive Tape (Rosins)], Trazodone, and Zantac [Ranitidine Hcl] MEDICATIONS doxycycline (VIBRA-TABS) 100 mg tablet Take 1 tablet by mouth two times a day for 10 days. dofetilide (TIKOSYN) 125 mcg capsule 125 mcg two times a day. wcvwyvwuwpj-igpnqakdp-ksleppsg (TRELEGY ELLIPTA) 100-62.5-25 mcg inhalation powder Inhale [...] 1,000 mg by mouth five times daily. MRPSEPI-DXVAWRGSK-VDIW ORAL Take by mouth. FAMILY HISTORY Problem [...] clear, Left tympanic membrane normal. , Right bee tender with some cerumen blocking all view [...] plan. Dianna Ballard APRN.CNP documented in this encounterSelect Medical [facility] [place]02-27-2025 NoteHNO ID: [id number] Author: DIANNA BALLARD APRN.CNP Service: ? Author [...] left Dr. Manuel Hoover - Dr. Alessio Welch PAST SURGICAL HISTORY OF NECK SURGERY, anterior [...] YRS/> REDUCIBLE 07/17/2010 Hernia repair, umbilical >5yr [facility] Dr Manuel Hoover SHX COSMETIC SURGERY [...] capsule 125 mcg two times a day. ctvhneunkql-gdbjvmnul-rxwhqvxr (TRELEGY ELLIPTA) 100-62.5-25 mcg inhalation powder Inhale [...] by mouth two t (more content not included)...[facility]02-27-2025 History of Present illness Narrative* Dianna Ballard APRN.BOLT SORTER - 07/08/2024 9:51 AM EST CC: Patient [...] left Dr. Manuel Hoover - Dr. Alessio Welch PAST SURGICAL HISTORY OF NECK SURGERY, anterior [...] YRS/> REDUCIBLE 07/17/2010 Hernia repair, umbilical >5yr [facility] Dr Manuel Hoover SHX COSMETIC SURGERY [...] capsule 125 mcg two times a day. gliaexxoofk-ypjdcxazw-hwdxzpql (TRELEGY ELLIPTA) 100-62.5-25 mcg inhalation powder Inhale [...] 1,000 mg by mouth five times daily. DVJJXYP-YWTXJRCSB-RSOB ORAL Take by mouth. FAMILY HISTORY Problem [...] plan. Dianna Ballard APRN.CNP documented in this encounter[facility] [place] History of Present illness Narrative* Sunday Ellis, RT(R) - 07/06/2024 11:40 AM EST Radiology [...] PATIENT PRESENTS WITH AN IMPLANTABLE OR ATTACHED COMPUTER TEACHER: No RADIOLOGY DEPARTMENT: CT; Exam(s) Completed: Chest PERIPHERAL IV DATA: Not applicable SIGNED BY: RT Sasha(Nidia) July 06, 2024 3:02 PM documented in this encounterSelect [facility]ty [facility] [place]02-25-2025 NoteHNO ID: [id number] Author: SUNDAY ELLIS RT(R) Service: ? Author Type: Dry Transfer Man Type: Progress Notes Filed: 07/06/2024 15:02 Note [...] PATIENT PRESENTS WITH AN IMPLANTABLE OR ATTACHED COMPUTER TEACHER: No RADIOLOGY DEPARTMENT: CT; Exam(s) Completed: Chest PERIPHERAL IV DATA: Not applicable SIGNED BY: RT Sasha(Nidia) July 06, 2024 3:02 [facility]02-24-2025 History of Present illness Narrative* Cassie Todd RT(R) - 07/05/2024 3:50 PM EST Radiology Service [...] PATIENT PRESENTS WITH AN IMPLANTABLE OR ATTACHED COMPUTER TEACHER: No RADIOLOGY DEPARTMENT: General X-ray: Exam(s) Completed: Chest X-Ray PERIPHERAL IV DATA: Not applicable SIGNED BY: RT Raghu(R) July 05, 2024 3:42 PM documented in this encounterSelect [facility] [place]02-24-2025 NoteHNO ID: [id number] Author: CASSIE TODD RT(R) Service: ? Author Type: Dry Transfer Man Type: Progress Notes Filed: 07/05/2024 15:51 Note [...] PATIENT PRESENTS WITH AN IMPLANTABLE OR ATTACHED COMPUTER TEACHER: No RADIOLOGY DEPARTMENT: General X-ray: Exam(s) Completed: Chest X-Ray PERIPHERAL IV DATA: Not applicable SIGNED BY: RT Raghu(R) July 05, 2024 3:42 [facility]02-24-2025 NoteHNO ID: [id number] Author: NADIR PICKARD PA-C Service: ? Author Type: Physician Rouge Presser Type: Progress Notes Filed: 07/05/2024 16:25 Note Text: This note was created using NoteWriter. Subjective Elizabeth Persaud is a 79 year [...] scan chest tomorrow. Patient does have a 50-fuve-pfch history of tobacco use and stopped smoking [...] MG TABLET - BENZONATATE 100 MG CAPSULE RENEE [facility]aud-[facility]02-24-2025 History of Present illness Narrative* Nadir Pickard PA-C - 07/05/2024 3:37 PM EST This note was created using Bosse Toolsriter. Subjective Elizabeth Persaud is a 79 year [...] scan chest tomorrow. Patient does have a 81-npji-atcl history of tobacco use and stopped smoking [...] CAPSULE Nadir Pickard PA-C documented in this encounterSelect Medical [facility]ty [facility] [place]02-11-2025 NoteHNO ID: [id number] Author: FCO VIDALES PA-C Service: ? Author Type: Physician Rouge Presser Type: Progress Notes Filed: 06/23/2024 09:18 Note Text: VIRTUAL VISIT PROGRESS NOTE This is a virtual visit using [employer] Video Visit. It required patient-provider interaction for the medical decision making as documented below. I have communicated my name and active licensure. The patient's identity and physical location were verified at the time of this visit. Either the patient or their legal direct marketing representative has been informed of the risks [...] left Dr. Manuel Hoover - Dr. Alessio Welch PAST SURGICAL HISTORY OF NECK SURGERY, anterior [...] YRS/> REDUCIBLE 07/17/2010 Hernia repair, umbilical >5yr [facility] Dr Manuel Hoover SHX COSMETIC SURGERY [...] capsule 125 mcg two times a day. xbkkreqwfav-yjgcierhn-optmujlu (TRELEGY ELLIPTA) 100-62.5-25 mcg inhalation powder Inhale [...] Take 1 capsule by (more content not included)...[facility]02-11-2025 History of Present illness Narrative* Fco Vidales PA-C - 06/22/2024 1:59 PM EST VIRTUAL VISIT PROGRESS NOTE This is a virtual visit using [employer] Zoom Video Visit. It required patient- provider interaction for the medical decision making as documented below. I have communicated my name and active licensure. The patient's identity and physical location wereverified at the time of this visit. Either the patient or their legal direct marketing representative has been informed of the risks [...] left Dr. Manuel Hoover - Dr. Alessio Welch PAST SURGICAL HISTORY OF NECK SURGERY, anterior [...] YRS/> REDUCIBLE 07/17/2010 Hernia repair, umbilical >5yr [facility] Dr Manuel Hoover SHX COSMETIC SURGERY [...] capsule 125 mcg two times a day. fnwrsmgofkc-fvtvkdvra-aznwczdc (TRELEGY ELLIPTA) 100-62.5-25 mcg inhalation powder Inhale [...] 1,000 mg by mouth five times daily. TIYZJRL-UHEJGWPNC-RIFU ORAL Take by mouth. No current facility-administered [...] Fco Vidales PA-C 06/23/2024 documented in this encounterSelect [facility] [place]02-11-2025 Telephone encounter Note * Telephone Encounter - Laith Montes MD - 06/22/2024 10:37 AM EST Left voicemail message regarding outside images. CT chest vein mapping. Lungs that are in view showemphysema and a few 3 mm nodules. Unable to assess all lung jack. Will need full chest CT. [facility] [place]02-11-2025 Miscellaneous Notes* Telephone Encounter - Laith Montes MD - 06/22/2024 10:37 AM EST Left voicemail message regarding outside images. CT chest vein mapping. Lungs that are in view showemphysema and a few 3 mm nodules. Unable to assess all lung jack. Will need full chest CT. documented in this encounterSelect Medical [facility]ty [facility] [place]02-06-2025 History of Present illness Narrative* Laiht Montes MD - 06/17/2024 10:00 AM EST Images from the original note were not included. . [facility] [place] Note Patient name: Elizabeth Persaud PCP: Minerva [...] mg tab(s) Take by mouth twice daily. oaghhraenag-udixzgmkm-drhxjxzs (TRELEGY ELLIPTA) 100-62.5-25 mcg inhalation powder Inhale [...] 1,000 mg by mouth five times daily. VTUVCGP-RRDWREPZC-CXXP ORAL Take by mouth. Social History Tobacco [...] left Dr. Manuel Hoover - Dr. Alessio Welch PAST SURGICAL HISTORY OF NECK SURGERY, anterior [...] YRS/> REDUCIBLE 07/17/2010 Hernia repair, umbilical >5yr H Dr Manuel Hoover SHX COSMETIC SURGERY SKIN [...] needed 2. Lung nodules -Requested images from [facility] -Follow-up CT of the chest at 1 year 3. Former cigarette smoker -Former smoker with sequelae of COPD -Had not qualified for lung cancer screening based on duration of smoking cessation greater than 15years Laith Montes MD [facility] [place] documented in this encounterSelect Medical [facility] [place]02-06-2025 NoteHNO ID: [id number] Author: LAITH MONTES MD Service: ? Author Type: Physician Type: Progress Notes Filed: 06/17/2024 12:38 Note Text: . [facility] [place] [facility] Patient name: Elizabeth Persaud PCP: Minerva [...] mg tab(s) Take by mouth twice daily. wprdgokuofl-mklyruuxg-kwvjumrp (TRELEGY ELLIPTA) 100-62.5-25 mcg inhalation powder Inhale [...] 1,000 mg by mouth five times daily. POTLHHS-UATVYYWEF-RSPC ORAL Take by mouth. Social History Tobacco Use Smoking status: Former Current packs/day: 0.00 Average packs/day: 2.0 packs/day for 35.0 years (70.0 ttl pk-yrs) Types: Cigarettes Start date: 11/09/1970 Quit date: 11/09/2005 Years since quittin.6 Smokeless tobacco: Never Tob (more content not included)...[facility]01-17-20[facility] Telephone encounter Note* Telephone Encounter - Minerva Shaver MD - 05/28/2024 5:59 AM EST Thank you , as a favor to me could you please ask the patient before it coming to me, jacqueline If someone has a marker shipments ask the patient who wpuld be managing inr for afib or valvular issues Regards, Minerva Shaver MD [facility]01-17-2025 Miscellaneous Notes* Telephone Encounter - Minerva Shaver MD - 05/28/2024 5:59 AM EST Thank you , as a favor to me could you please ask the patient before it coming to me, jacqueline If someone has a marker shipments ask the patient who wpuld be managing inr for afib or valvular issues Minerva Pichardo MD * Telephone Encounter - Brit Burnham LPN - 05/27/2024 9:46 AM EST Called and spoke to patient, stated Anticoagulant is being managed by her Unleavened Dough Mixer, Dr Ibarra. Patient states will be following up with Nagi Sharma WORSHIP LEADER with [facility]. Brit Burnham LPN May 27, 2024 9:49 [...] the pharmacy too Regards, Minerva Shaver MD * Telephone Encounter - Veronica Villar LPN - 05/26/2024 9:37 AM EST Kayden, Pharmacy with [employer] calling to let you know pt was in the [facility] for A-Fib. 24 thru 24. Per Kayden it is recommended that a pt be started on an Anticoagulation. She is checking to see if you would be on board to starting pt on Eliquis and follow pt. Youwould need to send prescription to pt's pharmacy. Please advise Kayden back to let you know what youare willing to do. Veronica Villar LPN documented in this encounterSelect [facility] [place]01-16-2025 Telephone encounter Note * Telephone Encounter - Brit Burnham LPN - 05/27/2024 9:46 AM EST Called and spoke to patient, stated Anticoagulant is being managed by her Unleavened Dough Mixer, Dr Ibarra. Patient states will be following up with Nagi Sharma WORSHIP LEADER with [facility]. Brit Burnham LPN May 27, 2024 9:49 AM [facility]01-16-2025 Telephone encounter Note* Telephone Encounter - Minerva [...] the pharmacy too Regards, Minerva Shaver MD [facility]01-15-2025 Telephone encounter Note* Telephone Encounter - Veronica Villar LPN - 05/26/2024 9:37 AM EST Kayden, Pharmacy with [employer] calling to let you know pt was in the Hospital [facility] for A-Fib. thru 04-17-24. Per Kayden it is recommended that a pt be started on an Anticoagulation. She is checking to see if you would be on board to starting pt on Eliquis and follow pt. Youwould need to send prescription to pt's pharmacy. Please advise Kayden back to let you know what youare willing to do. Veronica Villar LPN [facility]12-18-2024 Evaluation note* Diagnosis Onset Date Resolution Status Admit Date 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 April 28, 3:53pm Chronic diastolic (congestiv e) heart failure chronic April 28 3:53pm Paroxysmal atrial fibrillation chron ic April 28, 2024 3:53pm Fatigue resolved April [...] of cervical spinal surgery acute August 10:54am [facility] Work Phone: 1(971) 224-444612-16-2024 NoteHNO ID: [id number] Author: DYLAN ROSENBERG RN Service: ? Author Type: Registered Nurse Type: Progress Notes Filed: 04/26/2024 14:42 Note Text: Transitional Care Management (TCM) Follow-Up Note PCP Update / Actionable Items N/A - No specialty updates needed Patient Source: [facility] ([facility]) Discharge Outreach Summary: Spoke with patient, doing well at home. She did have an episode earlier where she went back into afib. She took her metoprolol and tikosyn and 45mins later episode had resolved. She did reach out to her cardiology office and is mostly followed by [facility] at this point, she denies any chest pain since discharge. She did ask for me to cancel her follow up with PCP as she is seeing [facility] providers for follow up. Patient discharged from [facility] Discharge date: 04/17/2024 Admitted for: afib [...] Dylan Rosenberg RN April 26, 2024 2:41 [facility]12-16-2024 NotePatient Outreach ([facility]) HUNGELIZABETH Celsa ([id number]) 1945 F [facility] Date Time Provider Department 04/26/24 DYLAN ROSENBERG During your visit today, we recorded the following information about you: Dylan Rosenberg RN 04/26/2024 2:42 PM Signed Transitional Care Management (TCM) Follow-Up Note PCP Update / Actionable Items N/A - No specialty updates needed Patient Source: [facility] ([facility]) Discharge Outreach Summary: Spoke with patient, doing well at home. She did have an episode earlier where she went back into afib. She took her metoprolol and tikosyn and 45mins later episode had resolved. She did reach out to her cardiology office and is mostly followed by [facility] at this point, she denies any chest pain since discharge. She did ask for me to cancel her follow up with PCP as she is seeing [facility] providers for follow up. Patient discharged from [facility] Discharge date: 04/17/2024 Admitted for: afib [...] by mouth two times a day. - kykxiccsysl-ktztvkduq-efdwafxk (TRELEGY ELLIPTA) 100-62.5-25 mcg inhalation powder Inhale [...] mg by mouth five times daily. - TTDPJYA-JZHKFBWLP-GPJL ORAL Take by mouth. 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 [facility]12-12-2024 Miscellaneous Notes* Nursing Notes - Paulette Brizuela [...] 04/22/2024 6:36 AM EST Patient presents to [facility] for A fib ablation with anesthesia. Procedure/recovery explained to patient. Verb understanding. Denies questions or concerns. documented [facility] Discharge instructions* Discharge Instr - Activity* [...] Where can you learn more? Go to [email or web address].net/[email or web address]. * Discharge Instr - Wound Care* BRITANY [...] seek immediate medical care. [facility]* Nursing Notes - Brianda Rg RN - 04/22/2024 7:15 AM EST Patient takes home Eliquis [facility]12-12-2024 Nurse Note* Nursing Notes - Brianda Rg RN - 04/22/2024 6:36 AM EST Patient presents to [facility] for A fib ablation with anesthesia. Procedure/recovery explained to patient. Verb understanding. Denies questions or concerns. [facility]12-12-2024 History and physical note* BRITANY Charles - 04/22/2024 6:22 AM EST Chief Complaint [...] 3 doses are missed, contact the prescribing marker shipments as soon as possible. 60 capsule 3 04/21/2024 at 2230 Empagliflozin (Jardiance) 10 MG tablet Take 1 tablet by mouth daily. 04/18/2024 Fexofenadine HCl (ZINA ALLERGY PO) Take 180 mg by mouth daily. 04/21/2024 fluticasone 50 MCG/ACT Suspension nasal spray 2 sprays by Nasal route daily. 04/21/2024 odickuogula-pfpkkjkxr-Udsllm (Trelegy Ellipta) 100-62.5-25 MCG/ACT Aerosol Powder, breath [...] 1 tablet by mouth daily. 04/21/2024 Nystatin 775032 UNIT/ML oral suspension Swish and swallow 5 [...] Physical Activity: Sufficiently Active (04/15/2022) Received from [facility] Exercise Vital Sign Days of Exercise per Week: 5 days Minutes of Exercise per Session: 150+ min Stress: No Stress Concern Present (04/15/2022) Received from [facility] [employer] [place] of Occupational Health - Occupational Stress Questionnaire Feeling of Stress : Only a little Social Connections: Socially Isolated (04/15/2022) Received from [facility] Social Connection and Isolation Panel [NHANES] Frequency of Communication with Friends and Family: Three times a week Frequency of Social Gatherings with Friends and Family: Once a week Attends Zoroastrian Services: Never Active Member of Clubs or [...] PCP Minerva VELIZ MD: Dr. Hernandez Anticoagulation: Sehy Has the patient missed any doses of anticoagulation. No When was the last dose taken. 04/22/2024 at 0730 [id number]- Vasc score: 7( age x2, female gender, [...] midnight -Lab results reviewed -CTPV results reviewed [facility]12-12-2024 History and physical note* Aracelis Pichardo, RADIATOR CORE TESTER-BOLT SORTER - 04/22/2024 6:22 AM EST Chief Complaint [...] drug load with Tikosyn and cardioversion x2. Sh e presents today for a redo A-fib/flutter ablation. [...] 3 doses are missed, contact the prescribing marker shipments as soon as possible. 60 capsule 3 04/21/2024 at 0 Empagliflozin (Jardiance) 10 MG tablet Take 1 tablet by mouth daily. 04/18/2024 Fexofenadine HCl (ZINA ALLERGY PO) Take 180 mg by mouth daily. 04/21/2024 fluticasone 50 MCG/ACT Suspension nasal spray 2 sprays by Nasal route daily. 04/21/2024 fyptwfotflm-akmilqqmn-Cahqov (Trelegy Ellipta) 100-62.5-25 MCG/ACT Aerosol Powder, breath [...] 1 tablet by mouth daily. 04/21/2024 Nystatin 587011 UNIT/ML oral suspension Swish and swallow 5 [...] Physical Activity: Sufficiently Active (04/15/2022) Received from [facility] Exercise Vital Sign Days of Exercise per Week: 5 days Minutes of Exercise per Session: 150+ min Stress: No Stress Concern Present (04/15/2022) Received from [facility] [employer] [place] of Occupational Health - Occupational Stress Questionnaire Feeling of Stress : Only a little Social Connections: Socially Isolated (04/15/2022) Received from [facility] Social Connection and Isolation Panel [NHANES] Frequency of Communication with Friends and Family: Three times a week Frequency of Social Gatherings with Friends and Family: Once a week Attends Zoroastrian Services: Never Active Member of Clubs or [...] PCP Minerva VELIZ MD: Dr. Hernandez Anticoagulation: Shey Has the patient missed any doses of anticoagulation. No When was the last dose taken. 04/22/2024 at 0730 [id number]- Vasc score: 7( age x2, female gender, [...] -CTPV results reviewed [facility] Evaluation note * Diagnosis Onset Date [...] atrial fibrillation chronic July 27, 2024 11:00am [facility] Work Phone: 1(977) 759-519012-07-2024 History of Present illness Narrative* Katia Kunz - 04/17/2024 3:25 PM EST Images from the original note were not included. [facility] Note: Bedside Delivery Documentation The following prescription(s) were tubed to the tube number 170, confirmed with Nurse Roz Stokes . [facility] ([place]) [phone] [facility] [phone] [facility] [phone] [facility] [phone] [facility] Bedside Delivery [phone] [place] [phone] [facility] [phone] [place] [phone] [place] [phone] * Alexia Bedoya, RADIATOR CORE TESTER-BOLT SORTER - 04/16/2024 3:34 PM EST Electrophysiology Consult SIGN OFF Elizabeth Persaud is a 78 y.o. 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 She was [...] Appointments Scheduled AF ablation on 04/22/2024 EP WORSHIP LEADER follow up scheduled on 08/11/2024 with Angelica [...] PA-C IDENTIFYING INFORMATION PATIENT: Elizabeth Persaud, 1945, [id number] LOS: 4 Code Status: Full Code Daily [...] [facility]. Patient reports symptoms [...] she takes her omeprazole. Perpatient, her outpatient marker shipments increased her PO lasix dose to 60mg BID a few weeks ago and started her on aldactone. Due to worsening symptoms, she decided to seek care at [place] [facility]. Work-up revealed trops 8, BNP 394, [...] Decreased Toprol XL to 25 mg BID 06/13 post DCCV bradycardia - Plan for OP ablation on 04/22 [id number] Score for Atrial Fibrillation Stroke Risk Age in Years: 75+ Sex: Female CHF History: Yes Hypertension History: Yes Stroke/TIA/Thromboembolism History: Yes Vascular Disease History: No Diabetes History: No FSE2GP0-TCWj Score: 7 Acute on Chronic diastolic heart [...] 2315) COPD, mild [facility]. - Continue inhaler therapies Former Nicotine Dependence [...] Oral Q12H Atorvastatin 20 mg Oral QHS dolnafcaki-ndtxrxvlcheemj-Vcxmxfyuok 2 puff Inhalation Daily dapagliflozin 10 mg [...] with Dr. Toña Persaud MD, the attending vice president precision market insights. DISCHARGE PLANNING: Dispo/Debility -Skilled therapy is anticipated upon discharge to home Follow Up Appointments: Heart Failure WORSHIP LEADER Hospital Follow Up Appt within 7-10 days of discharge: TBD Please Ensure Follow Up Labs / Testing are scheduled: TBD Shelly Noyola PA-C HF2/Advanced Heart Failure Phone: [phone] Associated attestation - Toña Persaud MD - [...] with bradycardia (HR 50s). Qtc 500 msec mgsvx0rm dose. Labs stable. #Persistent Atrial Fibrillation with [...] oral lasix 60 mg daily. Toña Persaud Glass Blower Helper Cardiovascular Medicine Heart Failure and Transplant Medicine [facility] [id number] * Shelly Noyola PA-C - 04/15/2024 2:33 PM EST Heart Failure 2/Advanced Heart Failure Progress Note Provider: Shelly Noyola PA-C IDENTIFYING INFORMATION PATIENT: Elizabeth Persaud, 1945, [id number] LOS: 3 Code Status: Full Code Daily [...] [facility]. Patient reports symptoms [...] she takes her omeprazole. Perpatient, her outpatient marker shipments increased her PO lasix dose to 60mg BID a few weeks ago and started her on aldactone. Due to worsening symptoms, she decided to seek care at [place] [facility]. Work-up revealed trops 8, BNP 394, [...] - Plan for OP ablation on 04/22 [id number] Score for Atrial Fibrillation Stroke Risk Age in Years: 75+ Sex: Female CHF History: Yes Hypertension History: Yes Stroke/TIA/Thromboembolism History: Yes Vascular Disease History: No Diabetes History: No LCO9WT4-GNOv Score: 7 Acute on Chronic diastolic heart [...] 0.8-1, Cr elevated to 1.5 on 04/15 06/13 cardiorenal. She skipped diuretic for last 2 [...] 2315) COPD, mild Follows [facility] pulmonary [facility]. - Continue inhaler therapies Former Nicotine Dependence [...] Oral Q12H Atorvastatin 20 mg Oral QHS eslljyptzr-cuwcvqotrvxmrd-Wdnabrogep 2 puff Inhalation Daily [Held by provider] [...] with Dr. Toña Persaud MD, the attending vice president precision market insights. DISCHARGE PLANNING: Dispo/Debility -Skilled therapy is anticipated upon discharge to home Follow Up Appointments: Heart Failure WORSHIP LEADER Hospital Follow Up Appt within 7-10 days of discharge: TBD Please Ensure Follow Up Labs / Testing are scheduled: TBD Shelly Noyola PA-C HF2/Advanced Heart Failure Phone: [phone] Associated attestation - Jean Marie Copeland MD [...] Heart Failure and Cardiac Transplant Program [facility] * Aracelis Pichardo, SORAYA-BOLT SORTER - 04/14/2024 2:46 PM EST ELECTROPHYSIOLOGY CONSULT [...] dependence, who presented on 04/12/2024 as a [facility] with worsening SOB and palpitations. ASSESSMENT [...] and Mg>2; replace electrolytes per protocol -EP WORSHIP LEADER follow-up in 3-4 months -Referral to antiarrhythmic [...] no murmurs, rub or gallops appreciated Extremities: [place] and warm. Palpable DP/PT pulses. Pedal edema [...] 20 mg Oral QHS [START ON 04/15/2024] aonqgmriqh-qrdoqebkdyfyti-Cbklpcpvdq 2 puff Inhalation Daily [Held by provider] dapagliflozin 10 mg Oral Daily Dofetilide 125 mcg Oral Q12HNS fexofenadine 60 mg Oral Daily fluticasone 2 spray Nasal Daily [Held by provider] furOSEmide 60 mg Oral BID Metoprolol succinate 25 mg Oral Once Metoprolol succinate 50 mg Oral BID Multi-Vitamins 1 tablet Oral Daily Pantoprazole 40 mg Oral Daily Spironolactone 25 mg Oral Daily [id number] Score for Atrial Fibrillation Stroke Risk Age in Years: 75+ Sex: Female CHF History: Yes Hypertension History: Yes Stroke/TIA/Thromboembolism History: Yes Vascular Disease History: No Diabetes History: No [id number] Score: 7 Thank you for this consult. Please call with questions. We will continue to follow along. BRITANY [facility] Electrophysiology Consult Service Phone: [phone] * Shelly Noyola PA-C - 04/14/2024 12:21 PM EST Heart Failure 2/Advanced Heart Failure Progress Note Provider: Shelly Noyola PA-C IDENTIFYING INFORMATION PATIENT: Elizabeth Persaud, 1945, [id number] LOS: 2 Code Status: Full Code Daily [...] [facility]. Patient reports symptoms [...] she takes her omeprazole. Perpatient, her outpatient marker shipments increased her PO lasix dose to 60mg BID a few weeks ago and started her on aldactone. Due to worsening symptoms, she decided to seek care at [facility]. Work-up revealed trops 8, BNP 394, [...] - Plan for OP ablation on 04/22 [id number] Score for Atrial Fibrillation Stroke Risk Age in Years: 75+ Sex: Female CHF History: Yes Hypertension History: Yes Stroke/TIA/Thromboembolism History: Yes Vascular Disease History: No Diabetes History: No [id number] Score: 7 Chronic diastolic heart failure (HFpEF) [...] % (04/13 0401) O2 Device: room air (04/12 2315) COPD, mild Follows with pulmonary at [facility]. - Continue inhaler therapies Former Nicotine Dependence [...] Oral Q12H Atorvastatin 20 mg Oral QHS neohfbrdkc-bchedjmttmunkq-Rpoomdylcg 2 puff Inhalation Daily dapagliflozin 10 mg Oral Daily Dofetilide 125 mcg Oral Q12HNS fluticasone 2 spray Nasal Daily furOSEmide 60 mg Oral BID Metoprolol succinate 25 mg Oral BID Multi-Vitamins 1 tablet Oral Daily Pantoprazole 40 mg Oral Daily Spironolactone 25 mg Oral Daily Discussed with team on rounds. This plan will be discussed with Dr. Toña Persaud MD, the attending vice president precision market insights. DISCHARGE PLANNING: Dispo/Debility -Skilled therapy is anticipated upon discharge to home Follow Up Appointments: Heart Failure [facility] Hospital Follow Up Appt within 7-10 days of discharge: TBD Please Ensure Follow Up Labs / Testing are scheduled: TBD Shelly Noyola PA-C HF2/Advanced Heart Failure Phone: [phone] Associated attestation - Toña Persaud MD - [...] Restart oral torsemide tomorrow (60 mg). Toña Persaud Glass Blower Helper Cardiovascular Medicine Heart Failure and Transplant Medicine [facility] [phone] * Vince Sellers - 04/13/2024 1:13 PM EST Introduced self and role of the web operations administrator to patient/family. Provided emotional and spiritual support and the patient/family responded by sharing their experience and discussed the following: Family and strength. Patient/family encouraged to request a web operations administrator as needed. Chaplains are available 24 hours a day and 7 days a week. For urgent matters in [facility], please page [phone]. If the request is not urgent, please enter a consult. Consults are responded to within 24 hours. Vince Sellers: Reddy Martinez Light Rail Transit Operator 02/12 On-call Pager ([phone]) Department of Flavoring Machine Operator and Clinical Pastoral Education [facility] S594C [facility], [facility] [address] [place] [address] [email or web address] 04/13/24 0930 Clinical Encounter Type Visited With Patient and family together Visit Type Introduction Pastoral Time Spent 30 min Referral IHIS Consult/Referral Zoroastrian Encounters Zoroastrian Needs Prayer Spiritual Assessment Spiritual Observation Spirituality helpful Emotional Observation Coping well Hope Observation Hopeful and accepting Support Observation Strong support;By Family Interventions Provided Active listening;Prayer;Supportive presence Facilitated Verbalization of feelings;Experiencing life change;Identifying support system;Identifying Sources of spiritual well-being Explored Family issues;Harriett issues Flavoring Machine Operator Education Flavoring Machine Operator Service Available Yes Outcomes Patient Outcomes Progressed [...] prompting, Dispense Report, OARRs, and Pharmacy (Name [facility] Phone [phone]). carlota also reviewed this list with the pharmacist. [...] after ablation. Last fill 01/20/24 for #180/90DS. Wkpssxzsjng-jqwkaqlfy-Jbeqij (Trelegy Ellipta) 100-62.5-25 MCG/ACT Aerosol Powder, breath [...] from pharmacy within the past year. Nystatin 730393 UNIT/ML oral suspension: Patient states she has another fill that was not picked upfrom pharmacy yet (last fill: 04/02/24 200mL/10DS). She also states that she takes it differently from prescribed. Patient swishes and spits out 5 mL instead of swishing and swallowing. Patient only using when taking with Trelegy inhaler. Please feel free to contact me with any further questions. Name: Diamond Lakhani, Pharm Student Preceptor: Addis PayneD Date/Time: 04/13/2024 12:41 PM Time Spent: 110 minutes Associated attestation - Akua Ramirez RPH - 04/13/2024 2:39 PM EST Department of Pharmacy Admission Medication Reconciliation Note Patient: Elizabeth Persaud Room/Bed: 7030/A I have reviewed the home medication list with the Student. The home medication list status is: complete. All changes to the home medication list have been updated in IHIS. Updated SAT TUTOR Med List: Prior to Admission Medications Prescriptions [...] Take 1 tablet by mouth daily. Nystatin 091177 UNIT/ML oral suspension Sig: Swish and swallow [...] spray Si sprays by Nasal route daily. nrqmskogimx-pogdoihsc-Mtbwbq (Trelegy Ellipta) 100-62.5-25 MCG/ACT Aerosol Powder, breath activatedinhaler Sig: Inhale 1 puff daily. furOSEmide 40 MG tablet Sig: Take 1.5 tablets by mouth 2 times daily. omeprazole [address] capsule Sig: Take 1 capsule by mouth daily. Facility-Administered Medications: None Please feel free to contact me with any further questions. Name: Akua Ramirez [facility] Phone #: [phone] Date/Time: 04/13/2024 2:38 PM * Shelly Noyola PA-C - 04/13/2024 12:04 PM EST Heart Failure 2/Advanced Heart Failure Progress Note Provider: Shelly Noyola PA-C IDENTIFYING INFORMATION PATIENT: Elizabeth Persaud, 1945, [id number] LOS: 1 Code Status: Full Code Daily [...] [facility]. Patient reports symptoms [...] she takes her omeprazole. Perpatient, her outpatient marker shipments increased her PO lasix dose to 60mg BID a few weeks ago and started her on aldactone. Due to worsening symptoms, she decided to seek care at [facility]. Work-up revealed trops 8, BNP 394, [...] Plan for ablation next week as OP [id number] Score for Atrial Fibrillation Stroke Risk Age in Years: 75+ Sex: Female CHF History: Yes Hypertension History: Yes Stroke/TIA/Thromboembolism History: Yes Vascular Disease History: No Diabetes History: No [id number] Score: 7 Acute on Chronic diastolic heart [...] % (04/13 0401) O2 Device: room air (04/12 2315) COPD, mild Follows with pulmonary at [facility]. - Continue inhaler therapies Former Nicotine Dependence [...] by provider] apixaban 5 mg Oral Q12H iepjvtljlj-nubxjdevboqiov-Wmmnazhbms 2 puff Inhalation Daily [Held by provider] [...] with Dr. Toña Persaud MD, the attending vice president precision market insights. DISCHARGE PLANNING: Dispo/Debility -Skilled therapy is anticipated upon discharge to home Follow Up Appointments: Heart Failure [facility] Hospital Follow Up Appt within 7-10 days of discharge: TBD Please Ensure Follow Up Labs / Testing are scheduled: TBD Shelly Noyola PA-C HF2/Advanced Heart Failure Phone: [phone] Associated attestation - Toña Persaud MD - [...] inhibitor when no longer NPO. Toña Persaud Glass Blower Helper Cardiovascular Medicine Heart Failure and Transplant Medicine [facility] [phone] * Diamond Soto - 04/13/2024 11:30 [...] participating in rehab at their local facility: [facility]. AMB REFERRAL TO CARDIAC REHAB HAS [...] for education review and activity progression. Diamond Soto, [phone]) IP Cardiopulmonary & Vascular Rehab * [place] [...] Estranged Name and Contact information: son in half-way Nearest Adult Related by Blood or Adoption: Yes Name and Contact information: Dickson Andrade [phone] Reviewed and Updated in Demographics? : Yes [...] Is the patient from a facility or care home?: No Patient lives with: Alone Living Environment: [...] Provider and Contact : [employer] Liter-Flow?: 1 Order for oxygen use?: prn [...] Yes Provider or Clinic that manages [facility]ticoagulation[facility] [place] [address] [address] [facility] [place] [address] [facility] [address] [employer]center Solution Architect Does the patient or direct marketing representative express financial concerns? 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 Patient demographic/address/emergency contact information verified Leonora ROSE Clinical Operations Leader [facility] * Marcelino Matthew PT - 04/13/2024 9:27 [...] no falls recently Vocation: (Pt works in [place] at [employer].) Objective/Observation: Vitals/Vitals Responses to Treatment: A-fib at [...] Independent Transfer Assessment: Sit to Stand Transfer [place] Level: Sit->Stand: independent Stand to Sit Transfer [place] Level: Stand->Sit: independent Gait/Functional Mobility: Gait Assessment [place] Level: Gait: supervision Ambulation Distance (Feet): 25 (in room) Gait Deviations Identified: decreased mari Stairs: Stairs Assessment [place] Level: Stair Negotiation: not tested Outcome Score(s): CURRENT [facility] Basic Mobility Inpatient Short Form Turning over in bed: 4 - No Assistance Moving from lying on back to sittin - No Assistance Moving to and from bed to chair: 4 - No Assistance Sitting/standing from chair: 4 - No Assistance Walk in hospital room: 4 - No Assistance Climbing 3-5 steps with a railin - A Little Assistance CURRENT [facility] Mobility Raw Score: 23 CURRENT [facility] Mobility Functional Limitation: 11.20% Impaired in Basic [...] no falls recently Vocation: (Pt works in [place] at [employer].) IADL History IADLs: independent Objective/Observation: Vitals/Vitals Responses [...] feet Mobility Assessment: Supine to Sit Mobility [place] Level: Supine->Sit: independent Sit to Supine Mobility [place] Level: Sit->Supine: independent Transfer Assessment: Sit to Stand Transfer [place] Level: Sit->Stand: independent Stand to Sit Transfer [place] Level: Stand->Sit: independent Toilet Transfer [place] Level: Toilet: independent Functional Mobility: Functional Mobility [place] Level: Functional Mobility/Gait: independent Skilled Intervention/Details - Functional Mobility/Gait: 25' in room- mobility limited due to elevated HR when ambulating (RN aware) Outcome Score(s): CURRENT [facility] Daily Activity Inpatient Short Form Putting on/Taking Off Lower Body Clothin - No Assistance Bathin - No Assistance Toiletin - No Assistance Putting on/Taking Off Upper Body Clothin - No Assistance Groomin - No Assistance Eatin - No Assistance CURRENT [facility] Activity Raw Score: 24 CURRENT [facility] Activity Functional Limitation/Modifier: 0.00% Currently Impaired in [...] Treatment Time OT Evaluation (Low) Time Entry: 20 Evaluating Therapist: Nitza Clements OT Additional Details: [...] minutes): 20 minutes Assisted by during session: Cole PT PPE used during patient interaction: gloves, facemask Patient location at end of session: bed with head of bed elevated Alarms on at end of session: RN aware Needs in reach. Upon discontinuation of Acute Care Occupational Therapy Services or patient discharge from the hospital this note represents the current Occupational Therapy Discharge Summary. [facility] Narrative* Shelly Noyola PA-C - 04/17/2024 8:26 AM EST Discharge Summary Name: Elizabeth Persaud Age: 78 y.o. Birthday: 1945 Admit Date: 04/12/2024 10:49 PM Discharge Date: 04/17/2024 Discharge Time: > 30 min with medication reconciliation and patient education Discharge Unit: [facility] Admission Information Admitting Physician: Toña Persaud MD [...] presents today [facility]13[facility]. Patient reports symptoms [...] she takes her omeprazole. Perpatient, her outpatient marker shipments increased her PO lasix dose to 60mg BID a few weeks ago and started her on aldactone. Due to worsening symptoms, she decided to seek care at [facility]. Work-up revealed trops 8, BNP 394, [...] appointments Scheduled AF ablation on 04/22/2024 EP WORSHIP LEADER follow up scheduled on 08/11/2024 with September [...] 3 months. Patient follows local cardiology at [facility] and has an appointment on 04/19. Patient [...] hospitalization. COPD, mild Follows with pulmonary at [facility]. - Continued inhaler therapies Former Nicotine Dependence [...] on April 17, 2024 9:14 AM Nystatin [id number] UNIT/ML oral suspension Swish and swallow 5 [...] inhaler Inhale 1 puff daily. Generic drug: xzifmshskoe-eczijjyvw-Ybwkyo Tylenol 8 Hour Arthritis Pain 650 MG tab ER Take 1 tablet by mouth every 6 hours as needed for Mild Pain. Last time this was given: Ask your nurse or doctor Generic drug: acetaminophen Follow-up: [facility] [address] [place] [id number] Follow up You've been referred to cardiac rehab, Please call if you have any questions Upcoming Appointments (up to five)-Some appointments for Medical Center outpatient clinics or diagnostic testing locations are not displayed below Provider Department Dept Phone 04/20/2024 9:30 AM [facility], [facility] Pharmacy Clinic Telehealth Arrive at: THIS IS A VIDEO VISIT, DO NOT GO TO THE CLINIC. [phone] 04/21/2024 3:35 PM LAB [facility]ENN[facility] Clinical Laboratories Jennifer Arrive at: Arrive to Jennifer Wisdom Registration Desk [phone] 04/21/2024 4:20 PM [facility] Cardiovascular Imaging Lab [facility] [phone] 08/11/2024 2:00 PM Erl[facility] [place] Arrive at: Arrive to 1st Floor Registration [phone] 11/02/2024 10:00 AM [facility] Coding Team Lead Center [facility] Arrive at: Arrive to Jennifer Wisdom Registration Desk [phone] Associated attestation - Toña Persaud MD - [...] cardiology follow up next Friday per patient. Toña Persaud Glass Blower Helper Cardiovascular Medicine Heart Failure and Transplant Medicine [facility] [phone] documented in this [facility] Plan of care note* Plan of [...] demonstrates an understanding, and denies any questions. [facility] Miscellaneous Notes* Plan of Care - Kathy [...] Outcome: Progressing * Plan of Care - Miri Guadalupe APRN-BOLT SORTER - 04/15/2024 4:41 PM EST ELECTROPHYSIOLOGY UPDATE NOTE Elizabeth Persaud is a 78 year old female with persistent AF who presented on 04/12/2024 as a transfer from [facility] with worsening SOB and palpitations. EP was [...] continue Eliquis for stroke risk reduction -EP WORSHIP LEADER follow-up in 3-4 months -Referral to antiarrhythmic [...] monitor. * Plan of Care - Marcelino Matthew, PT [...] Care Outcome: Progressing * Nursing Notes - Asha Castellanos RN - 04/13/2024 1:12 AM EST Nursing Note @ 0112 Placed 20g 1 in cath PIV in right anterior forearm via ultrasound. PIV flushes and draws. Patient tolerated well. * Nursing Notes - Annelise Hoskins RN - 04/13/2024 12:25 AM EST On admission to [facility] unit @, from outside facility a dual RN initial assessment of skin conditionwas performed by Annelise Rodriguez RN and Ad Garcia RN Skin Assessment: WDL Smith Score: 22 LDA Added: Take Picture of Wound: Wound Consult in place: Dressings/Treatment: documented in this encounter[facility] Plan of care note* Plan of [...] safely navigate home and community. Outcome: Progressing [facility] Plan of care note* Plan of Care - Flores Gill RN - 04/16/2024 12:20 PM EST Problem: Adult Inpatient Plan of Care Goal: Plan of Care Review Outcome: Progressing Goal: Patient-Specific Goal (Individualized) Outcome: Progressing Goal: Absence of Hospital-Acquired Illness or Injury Outcome: Progressing Goal: Optimal Comfort and Wellbeing Outcome: Progressing Goal: Readiness for Transition of Care Outcome: Progressing [facility] Plan of care note* Plan of Care - Miri Guadalupe APRN-[facility]OLT SORTER - 04/15/2024 4:41 PM EST ELECTROPHYSIOLOGY UPDATE NOTE Elizabeth Persaud is a 78 year old female with persistent AF who presented on 04/12/2024 as a transfer from [facility] with worsening SOB and palpitations. EP was [...] continue Eliquis for stroke risk reduction -EP WORSHIP LEADER follow-up in 3-4 months -Referral to antiarrhythmic clinic in 6 months [facility] Work Phone: [phone]) 543-9771123473-07-0412 Nurse Note* Nursing Notes - Shi Dumont RN - 04/15/2024 12:10 AM EST Notified RENEE Jarquin Pt had a 7 beat run Vtach. Will obtain labs. No new orders at this time. [facility]12-04-2024 Nurse Note* Nursing Notes - [...] RVR. Current QTC is 512. [facility]12-04-2024 Nurse Note* Nursing Notes - [...] 50 mg Metoprolol. Will continue to monitor. [facility] Hospital Discharge instructions* Discharge Instructions* Sandi Roche APRN-BOLT SORTER - 04/13/2024 11:09 AM EST Images from the original note were not included. You qualify for the [facility] Transitions of Care, Heart Failure (HF) Care [...] follow up appointment, please contact the heart transitionsof care team: [phone]. - Opt 1: Scheduling your heart failure hospital follow up or pharmacy transitions visit - Opt 2: Non-urgent clinical questions pertaining to your heart failure hospital care plan - Opt 3: Social Work needs Please note, program hours are Friday - Friday 8am - 4pm ET. Please allow up to 2 business days forreturn call. For other heart scheduling needs please contact [phone], OPT 1. For urgent medical needs during evening, weekend or holiday's please call [phone] Ask the squaring shear operator to page the on-call doctor for the service that was responsible for your care while you were in the hospital. For medical emergencies please dial [phone] For more information about Heart Failure please visit this link for an online interactive workbook or QR code below: http://[email or web address]/aha-heartfailure/ * Discharge Instr - Activity* Shelly Noyola [...] or sodium intake each day to between 3435-3250 mg to help manage high blood pressure [...] (2000ml) daily, unless otherwise directed by your Unleavened Dough Mixer. Be sure to include all fluids in your daily total. Daily Weights Contact your marker shipments with a weight gain of 2 lbs [...] pounds in one week. documented in this encounterSub[facility] Plan of care note* Plan of Care - Marcelino Matthew PT [...] safely navigate home and community. Outcome: Progressing [facility] Consult note* Roz Clarke MD - 04/13/2024 9:17 AM ESTAssociated Order(s): IP CONSULT TO CARDIOLOGY - EP ELECTROPHYSIOLOGY CONSULT NOTE IMPRESSION AND RECOMMENDATIONS Elizabeth Persaud is a 78 y.o. female with a PMH of persistent AF s/p ablation (2015) and multiple DCCVs (most recently 12/2023), atypical AFL, HFpEF/NICM (EF 60%), TIA (07/2022), COPD, nicotine dependence in remission, admitted to [facility] and the EP consult service has been [...] COPD, nicotine dependence in remission, admitted to [facility] and the EP consult service has been [...] Resource Strain: Low Risk (04/15/2022) Received from [facility] Overall Financial Resource Strain (CARDIA) Difficulty of Paying Living Expenses: Not hard at all Food Insecurity: No Food Insecurity (04/15/2022) Received from [facility] Hunger Vital Sign Worried About Running Out of Food in the Last Year: Never true Ran Out of Food in the Last Year: Never true Transportation Needs: No Transportation Needs (04/15/2022) Received from [facility] PRAPARE - Transportation Lack of Transportation (Medical): No Lack of Transportation (Non-Medical): No Physical Activity: Sufficiently Active (04/15/2022) Received from [facility] Exercise Vital Sign Days of Exercise per Week: 5 days Minutes of Exercise per Session: 150+ min Stress: No Stress Concern Present (04/15/2022) Received from [facility] [place] of Occupational Health - Occupational Stress Questionnaire Feeling of Stress : Only a little Social Connections: Socially Isolated (04/15/2022) Received from [facility], [facility] Social Connection and Isolation Panel [NHANES] Frequency of Communication with Friends and Family: Three times a week Frequency of Social Gatherings with Friends and Family: Once a week Attends Zoroastrian Services: Never Active Member of Clubs or Organizations: No Attends Club or Organization Meetings: Never Marital Status: Intimate Partner Violence: Not on file Housing Stability: Unknown (04/15/2022) Received from [facility], [facility] Housing Stability Vital Sign Unable to Pay [...] interviewed and evaluated this patient with the Fellow/WORSHIP LEADER/Resident. I have reviewed the history and examination and edited these where appropriate in the note above. Iagree with the medical decision and components of the note. Pt alert and oriented without complaints. Mukesh Adhikari MD Electrophysiologists Drug Abuse Social Worker of Internal Medicine [facility] [phone] [facility] Work Phone: 1(952) 105-680712-03-2024 Consult note* Roz Clarke MD - 04/13/2024 9:17 AM ESTAssociated Order(s): IP CONSULT TO CARDIOLOGY - EP ELECTROPHYSIOLOGY CONSULT NOTE IMPRESSION AND RECOMMENDATIONS Elizabethnay Persaud is a 78 y.o. female with a PMH of persistent AF s/p ablation (2015) and multiple DCCVs (most recently 12/2023), atypical AFL, HFpEF/NICM (EF 60%), TIA (07/2022), COPD, nicotine dependence in remission, admitted to [facility] and the EP consult service has been [...] COPD, nicotine dependence in remission, admitted to [facility] and the EP consult service has been [...] Resource Strain: Low Risk (04/15/2022) Received from [facility] Overall Financial Resource Strain (CARDIA) Difficulty of Paying Living Expenses: Not hard at all Food Insecurity: No Food Insecurity (04/15/2022) Received from [facility] Hunger Vital Sign Worried About Running Out of Food in the Last Year: Never true Ran Out of Food in the Last Year: Never true Transportation Needs: No Transportation Needs (04/15/2022) Received from [facility] PRAPARE - Transportation Lack of Transportation (Medical): No Lack of Transportation (Non-Medical): No Physical Activity: Sufficiently Active (04/15/2022) Received from [facility] Exercise Vital Sign Days of Exercise per Week: 5 days Minutes of Exercise per Session: 150+ min Stress: No Stress Concern Present (04/15/2022) Received from [facility] [place] of Occupational Health - Occupational Stress Questionnaire Feeling of Stress : Only a little Social Connections: Socially Isolated (04/15/2022) Received from [facility] Social Connection and Isolation Panel [NHANES] Frequency of Communication with Friends and Family: Three times a week Frequency of Social Gatherings with Friends and Family: Once a week Attends Zoroastrian Services: Never Active Member of Clubs or Organizations: No Attends Club or Organization Meetings: Never Marital Status: Intimate Partner Violence: Not on file Housing Stability: Unknown (04/15/2022) Received from [facility] Housing Stability Vital Sign Unable to [...] interviewed and evaluated this patient with the Fellow/WORSHIP LEADER/Resident. I have reviewed the history and examination and edited these where appropriate in the note above. Iagree with the medical decision and components of the note. Pt alert and oriented without complaints. Mukesh Adhikari MD Electrophysiologists Drug Abuse Social Worker of Internal Medicine [facility] [phone] [facility] Plan of care note* Plan of Care - Annelise Hoskins RN - 04/13/2024 2:02 AM EST Problem: Adult Inpatient Plan of Care Goal: Plan of Care Review Outcome: Progressing Problem: Adult Inpatient Plan of Care Goal: Absence of Hospital-Acquired Illness or Injury Outcome: Progressing Problem: Adult Inpatient Plan of Care Goal: Readiness for Transition of Care Outcome: Progressing [facility]12-03-2024 Nurse Note* Nursing Notes - Asha Castellanos RN - 04/13/2024 1:12 AM EST Nursing Note @ 0112 Placed 20g 1 in cath PIV in right anterior forearm via ultrasound. PIV flushes and draws. Patient tolerated well. [facility]12-03-2024 Nurse Note* Nursing Notes - Annelise Ng RN - 04/13/2024 12:25 AM EST On admission to [facility] unit @, from outside facility a dual RN initial assessment of skin conditionwas performed by Annelise Rodriguez RN and Ad Garcia RN Skin Assessment: WDL Smith Score: 22 LDA Added: Take Picture of Wound: Wound Consult in place: Dressings/Treatment: [facility]12-02-2024 History and physical note* Rica [...] [facility]. Patient reports symptoms [...] she takes her omeprazole. Perpatient, her outpatient marker shipments increased her PO lasix dose to 60mg BID a few weeks ago and started her on aldactone. Due to worsening symptoms, she decided to seek care at [facility]. Work-up revealed trops 8, BNP 394, [...] Resource Strain: Low Risk (04/15/2022) Received from [facility] Overall Financial Resource Strain (CARDIA) Difficulty of Paying Living Expenses: Not hard at all Food Insecurity: No Food Insecurity (04/15/2022) Received from [facility] Hunger Vital Sign Worried About Running Out of Food in the Last Year: Never true Ran Out of Food in the Last Year: Never true Transportation Needs: No Transportation Needs (04/15/2022) Received from [facility] PRAPARE - Transportation Lack of Transportation (Medical): No Lack of Transportation (Non-Medical): No Physical Activity: Sufficiently Active (04/15/2022) Received from [facility] Exercise Vital Sign Days of Exercise per Week: 5 days Minutes of Exercise per Session: 150+ min Stress: No Stress Concern Present (04/15/2022) Received from [facility] [place] of Occupational Health - Occupational Stress Questionnaire Feeling of Stress : Only a little Social Connections: Socially Isolated (04/15/2022) Received from [facility] Social Connection and Isolation Panel [NHANES] Frequency of Communication with Friends and Family: Three times a week Frequency of Social Gatherings with Friends and Family: Once a week Attends Zoroastrian Services: Never Active Member of Clubs or Organizations: No Attends Club or Organization Meetings: Never Marital Status: Housing Stability: Unknown (04/15/2022) Received from [facility], [facility] Housing Stability Vital Sign Unable to Pay [...] MAGNESIUM 2.0 PHOSPHORUS 4.1 Ptt/Pt/Inr: 28.4/--/-- (04/13 5) Lab Results Component Value Date NTERMINALPRO 4,593 [...] years ago and did not have PATSY [id number] Score for Atrial Fibrillation Stroke Risk Age in Years: 75+ Sex: Female CHF History: Yes Hypertension History: Yes Stroke/TIA/Thromboembolism History: Yes Vascular Disease History: No Diabetes History: No [id number] Score: 7 Acute on Chronic diastolic heart [...] 2315) COPD, mild Follows with pulmonary at [facility]. - Continue inhaler therapies Former Nicotine Dependence [...] Lumen 04/13/2423 forearm, anterior, left 22 gauge 12/03/24 0024 -- less than 1 Peripheral IV Line - Single Lumen 04/13/24 0111 forearm, anterior, right 20 gauge;1 in length 04/13/24 0111 -- less than 1 Diet: DIET NPO with meds DVT Prophylaxis: Heparin gtt Dispo: Home Rica Schulz PA-C HF2/Advanced Heart Failure Phone: [phone] [facility]12-02-2024 History and physical note* Rica Schulz PA-C [...] presents [facility]13[facility]. Patient reports symptoms [...] she takes her omeprazole. Perpatient, her outpatient marker shipments increased her PO lasix dose to 60mg BID a few weeks ago and started her on aldactone. Due to worsening symptoms, she decided to seek care at [place]. Work-up revealed trops 8, BNP 394, [...] Resource Strain: Low Risk (04/15/2022) Received from [facility] Overall Financial Resource Strain (CARDIA) Difficulty of Paying Living Expenses: Not hard at all Food Insecurity: No Food Insecurity (04/15/2022) Received from [facility] Hunger Vital Sign Worried About Running Out of Food in the Last Year: Never true Ran Out of Food in the Last Year: Never true Transportation Needs: No Transportation Needs (04/15/2022) Received from [facility] PRAPARE - Transportation Lack of Transportation (Medical): No Lack of Transportation (Non-Medical): No Physical Activity: Sufficiently Active (04/15/2022) Received from [facility] Exercise Vital Sign Days of Exercise per Week: 5 days Minutes of Exercise per Session: 150+ min Stress: No Stress Concern Present (04/15/2022) Received from [facility] [place] of Occupational Health - Occupational Stress Questionnaire Feeling of Stress : Only a little Social Connections: Socially Isolated (04/15/2022) Received from [facility] Social Connection and Isolation Panel [NHANES] Frequency of Communication with Friends and Family: Three times a week Frequency of Social Gatherings with Friends and Family: Once a week Attends Zoroastrian Services: Never Active Member of Clubs or Organizations: No Attends Club or Organization Meetings: Never Marital Status: Housing Stability: Unknown (04/15/2022) Received from [facility] Housing Stability Vital Sign Unable to [...] years ago and did not have PATSY [id number] Score for Atrial Fibrillation Stroke Risk Age in Years: 75+ Sex: Female CHF History: Yes Hypertension History: Yes Stroke/TIA/Thromboembolism History: Yes Vascular Disease History: No Diabetes History: No [id number] Score: 7 Acute on Chronic diastolic heart [...] 2315) COPD, mild Follows with pulmonary at [facility]. - Continue inhaler therapies Former Nicotine Dependence [...] Rica Schulz PA-C HF2/Advanced Heart Failure Phone: [phone] documented in [facility] NoteHNO ID: [id number] Author: MINERVA SHAVER MD Service: ? Author [...] DIAGNOSTIC 10/06/2013 EGD ESOPHAGOGASTRODUODENO (more content not included)...[facility] 04-02-2024 History of Present illness Narrative* [...] left Dr. Manuel Hoover - Dr. Alessio Welch PAST SURGICAL HISTORY OF NECK SURGERY, anterior [...] YRS/> REDUCIBLE 07/17/2010 Hernia repair, umbilical >5yr [facility] Dr Manuel Hoover SHX COSMETIC SURGERY [...] (TOPROL XL) 50 mg 24 hr tablet kfrxztpfghf-okluasmlm-cfhavmje (TRELEGY ELLIPTA) 100-62.5-25 mcg inhalation powder fluticasone (FLONASE) 50 mcg/actuation nasal spray JARDIANCE 10 mg tablet Ipratropium (ATROVENT) 17 mcg/actuation inhaler furosemide (LASIX) 40 mg tablet apixaban (ELIQUIS) 5 mg tab(s) Bifidobacterium infantis (ALIGN) 10.5 mg (10 million cell) chew melatonin 3 mg ODT MULTIVITAMIN WITH MINERALS (ONE-A-DAY 50 PLUS ORAL) CALCIUM CARBONATE/VITAMIN D3 (VITAMIN D-3 ORAL) OYMXOAC-TGKNQBZNT-EBHC ORAL flecainide (TAMBOCOR) 100 mg tablet potassium [...] in medications. Asked her to discuss with marker shipments to try to change her metoprolol dosage. [...] her. Minerva Shaver MD documented in this encounterSelect [facility] [place] Telephone encounter Note * Telephone Encounter - Jennifer Treadwell MA - 02/23/2024 8:28 AM EDT Faxed as requested. Jennifer Treadwell MA [facility]10-14-2024 Miscellaneous Notes* Telephone Encounter - Jennifer Treadwell MA - 02/23/2024 8:28 AM EDT Faxed as requested. Jennifer Treadwell MA * Telephone Encounter - Jennifer Treadwell MA - 02/23/2024 8:15 AM EDT Form received from [facility] regarding patient's REFUGIO for insurance purposes. Form filled out and placed on PCP desk for signature. Once signed, please fax to [facility] at [phone], ATTN HR and copy to scanning. Jennifer Treadwell MA documented in this encounterSelect [facility] [place] Telephone encounter Note * Telephone Encounter - Jennifer Treadwell MA - 02/23/2024 8:15 AM EDT Form received from [facility] regarding patient's REFUGIO for insurance purposes. Form filled out and placed on PCP desk for signature. Once signed, please fax to [facility] at [phone], ATTN HR and copy to scanning. Jennifer Treadwell MA [facility]08-22-2024 History of Present illness Narrative* Dianna Ballard APRN.BOLT SORTER - 01/01/2024 10:53 AM EDT CC: Patient [...] (HCC) No date: DVT (deep venous thrombosis) ([facility]) Comment: remote No date: Esophageal reflux 10/31/2018: [...] left Dr. Manuel Hoover - Dr. Alessio Welch No date: PAST SURGICAL HISTORY OF Comment: [...] YRS/> REDUCIBLE Comment: Hernia repair, umbilical >5yr [facility] Dr Manuel Hoover No date: SHX COSMETIC [...] mg by mouth two times a day.) simgefkjtyb-amyqsnwgd-jvlbevck (TRELEGY ELLIPTA) 100-62.5-25 mcg inhalation powder Inhale [...] 1,000 mg by mouth five times daily. OYWTHFL-XCXSVCLVD-MIQT ORAL Take by mouth. FAMILY HISTORY Problem [...] plan. Dianna Ballard APRN.CNP documented in this encounterSelect [facility] [place] History of Present illness Narrative* Laith Montes MD - 12/15/2023 9:30 AM EDT Images from the original note were not included. . Respiratory [place] Note Patient name: Elizabeth Persaud PCP: Minerva Shaver MD CC: follow up COPD HPI: Elizabeth Persaud 78 year old female former 70 pack year smoker, quitting in 2006 with PMH significant for scoliosis, HFpEF, HTN, [...] No date: Arthritis No date: Atrial fibrillation ([facility]) Comment: s/p ablation 07/2015 No date: Backache, unspecified No date: Moses's esophagus No date: Basal cell carcinoma No date: BPPV (benign paroxysmal positional vertigo) No date: Cancer ([facility]) Comment: Basal cell on forehead No date: Carpal tunnel syndrome, bilateral No date: Congestive heart failure ([facility]) No date: COPD (chronic obstructive pulmonary disease) ([facility]) No date: DVT (deep venous thrombosis) ([facility]) Comment: remote No date: Esophageal reflux 10/31/2018: [...] mg by mouth two times a day.) ynrivskjxoo-zagghseps-kdgsfgnl (TRELEGY ELLIPTA) 100-62.5-25 mcg inhalation powder Inhale [...] 1,000 mg by mouth five times daily. VAMECLY-BHHTPWHZX-GFPK ORAL Take by mouth. sucralfate (CARAFATE) 100 [...] left Dr. Manuel Hoover - Dr. Alessio Welch No date: PAST SURGICAL HISTORY OF Comment: [...] YRS/> REDUCIBLE Comment: Hernia repair, umbilical >5yr [facility] Dr Manuel Hoover No date: SHX COSMETIC [...] than 15 years Laith Montes MD [facility] [place] documented in this encounterSelect [facility] [place] History of Present illness Narrative* Emily Oliveira RPFT - 12/15/2023 8:56 AM EDT PULM FUNCTION: Provider: Laith Montes MD Assisting Tech: Emily Oliveira RPFT Spirometry: 1 documented in this encounterSelect [facility] [place]06-13-2024 Telephone encounter Note * Telephone Encounter - Felicitas Glover LPN - [...] Glover LPN October 23, 2023 7:41 AM [facility]06-13-2024 Miscellaneous Notes* Telephone Encounter - Felicitas Glover [...] 23, 2023 7:41 AM documented in this encounterSelect [facility] [place]2024 History of Present illness Narrative* Dianna Ballard APRN.BOLT SORTER - 09/29/2023 11:55 AM EDT CC: Patient [...] of the time. Awaiting an ablation at [facility] as she has palpitations and SOB due to her a- fib. Sees [facility] and recently had her valsartan [...] left Dr. Manuel Hoover - Dr. Alessio Welch PAST SURGICAL HISTORY OF NECK SURGERY, anterior [...] YRS/> REDUCIBLE 07/17/2010 Hernia repair, umbilical >5yr [facility] Dr Manuel Hoover SHX COSMETIC SURGERY SKIN BIOPSY HX ALLERGIES Cardizem [Diltiazem Hcl], Codeine, Entex [Phenylephrine-Guaifenesin], Etodolac, Meloxicam, Naproxen, Tape [Adhesive Tape (Rosins)], Trazodone, and Zantac [Ranitidine Hcl] MEDICATIONS eaqgcrzgfvr-unzwvgfab-ogwbbgcc (TRELEGY ELLIPTA) 100-62.5-25 mcg inhalation powder Inhale [...] 1,000 mg by mouth five times daily. WRDZVYY-RAQDNXSEL-ZTOG ORAL Take by mouth. FAMILY HISTORY Problem [...] Covid-19 Vaccine( - season) due on 02/11/2024 RSV Vaccine(1 [...] plan. Dianna Ballard APRN.CNP documented in this encounterSelect [facility] [place]04-26-20[facility] History of Present illness Narrative* Katheryn Stokes MD - 09/05/2023 11:00 AM EDT FOLLOW UP VISIT - ENDOSCOPY NAME: Elizabeth Steen [facility] NO.: [id number] DATE OF SERVICE: 09/05/2023 : 1945 REFERRING [...] needed Katheryn Stokes MD documented in this encounterSelect [facility] [place]04-10-2024 Miscellaneous Notes* Telephone Encounter - Katheryn Stokes MD - 08/20/2023 9:13 AM EDT FOLLOW UP ENDOSCOPY - RESULTS AND RECOMMENDATIONS NAME: Elizabeth Persaud [facility] NO.: [id number] : 1945 DATE: August 20, 2023 PRIMARY [...] to the appropriate providers documented in this encounterSelect Medical [facility] [place]04-08-2024 History and physical note * Katheryn Stokes [...] [facility] was [facility] food sticking [...] - External and internal hemorrhoids. Pathology demonstrated: Regulatory Affairs Internship Specimen originated from [facility] Specimen #: [id number] Submitting Physician: CARMENCITA CORDOBA MD FINAL DIAGNOSIS [...] left Dr. Manuel Hoover - Dr. Alessio Welch PAST SURGICAL HISTORY OF NECK SURGERY, anterior [...] YRS/> REDUCIBLE 07/17/2010 Hernia repair, umbilical >5yr [facility] Dr Manuel Hoover SHX COSMETIC SURGERY [...] mg by mouth two times a day.) hbdsfeambps-oikdudume-gvrzkjde (TRELEGY ELLIPTA) 100-62.5-25 mcg inhalation powder Inhale [...] 1,000 mg by mouth five times daily. XPPBHZJ-LPEPZBONQ-EHQY ORAL Take by mouth. lidocaine (LIDODERM) 5 [...] and reviewed by me Nursing Notes: Genna Montes LPN 05/30/2023 10:10 [...] [facility] noted was demonstrating food sticking [...] - External and internal hemorrhoids. Pathology demonstrated: Regulatory Affairs Internship Specimen originated from [facility] Specimen #: [id number] Submitting Physician: CARMENCITA CORDOBA MD FINAL DIAGNOSIS [...] biopsies (D) - Fragments of hyperplastic polyp. JJ/geovani 11/24/2015 COMMENT 1. Results of an immunohistochemical [...] left Dr. Manuel Hoover - Dr. Alessio Welch PAST SURGICAL HISTORY OF NECK SURGERY, anterior [...] YRS/> REDUCIBLE 07/17/2010 Hernia repair, umbilical >5yr [facility] Dr Manuel Hoover SHX COSMETIC SURGERY [...] mg by mouth two times a day.) qcwojafyjdi-giorcmkjz-dsefinxw (TRELEGY ELLIPTA) 100-62.5-25 mcg inhalation powder Inhale [...] 1,000 mg by mouth five times daily. EMSLPOB-RZHJBMXKK-GWLL ORAL Take by mouth. lidocaine (LIDODERM) 5 [...] entered by the nurse and reviewed by il Nursing Notes: Genna Montes LPN 05/30/2023 10:10 [...] completed. Katheryn Stokes MD documented in this encounterSelect Medical [facility] [place]04-08-2024 Nurse Note* Ammy Baer RN - 08/18/2023 10:49 AM EDT Other: 1030 Dr. Walker aware pt took Jardiance yesterday 08/17/23 at 1230. Also Eliquis 08/17/23 as well. Plans are to go ahead with procedure. documented in this encounterSelect Medical [facility]ty [facility] [place]03-25-2024 Miscellaneous Notes* Telephone Encounter - Veronica Bowling MA - 08/04/2023 9:04 AM EDT Patient electronically requesting refills as follows: Requested Prescriptions Pending Prescriptions Disp Refills xdopvhrwpzr-aikdyruzx-tjdbnzee (TRELEGY ELLIPTA) 100-62.5-25 mcg inhalation powder 1 Each 5 Sig: Inhale 1 Puff as instructed once daily. Please review and advise. Veronica Bowling MA documented in this encounterSelect Medical [facility] [place]03-04-2024 Miscellaneous Notes* Telephone Encounter - Felicitas Glover [...] you. Felicitas Glover LPN. documented in this encounterSelect Medical [facility]ty [facility] [place]03-04-2024 Miscellaneous Notes* Telephone Encounter - Felicitas Glover [...] you. Felicitas Glover LPN. documented in this encounterSelect Medical [facility]ty [facility] [place]02-23-2024 Procedure [facility]02-23-2024 Procedure [facility]02-19-2024 History of Present illness Narrative* Dianna Ballard APRN.BOLT SORTER - 06/30/2023 11:44 AM EST CC: Patient [...] left Dr. Manuel Hoover - Dr. Alessio Welch PAST SURGICAL HISTORY OF NECK SURGERY, anterior [...] YRS/> REDUCIBLE 07/17/2010 Hernia repair, umbilical >5yr [facility] Dr Manuel Hoover SHX COSMETIC SURGERY [...] mg by mouth two times a day.) lgcbxlylgyo-cxsohmqvu-pozkvtrp (TRELEGY ELLIPTA) 100-62.5-25 mcg inhalation powder Inhale [...] 1,000 mg by mouth five times daily. BEMNCZS-KSBVORKJN-SDCZ ORAL Take by mouth. FAMILY HISTORY Problem [...] plan. Dianna Ballard APRN.CNP documented in this encounterSelect Medical [facility] [place]02-15-2024 History and physical note Author Maxim Ibarra [facility] June 26, 2023 4:40pm Note Date/Time June 24, 2023 2:36pm [facility] Medical Records Department [address] [place] [address] History & Physical Exam 06/24/23 1435 MR#: [id number] Acct: [id number] Name: ELIZABETH PERSAUD Rep #:[id number] : 1945 78 From: Maxim Ibarra MD PCP: Dr. Minerva Shaver MD Status:PRE S DC Location: [facility] History and Physical Date of Admission: 07/04/23 ELIZABETH PERSAUD, is a 77 F who presents to the label pinker today for a cardioversion. She has a [...] is scheduled to see vascular-[facility]. Persaud at [facility] next week. 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 [place] [employer] Functional Class: I ACC/AHA stage: [...] 1444 <Electronically signed by Nagi HAGAN> CC: WORSHIP LEADERMikie Sharma; Dr. Minerva Shaver MD; Dr. Maxim Ibarra MD~ Signed [facility] Work Phone: [phone] 150-509901-19-2024 Telephone encounter Note* Telephone Encounter - Sonia Diane - 05/30/2023 10:50 AM EST 08/18/2023 EGD HART [facility]01-19-2024 Miscellaneous Notes* Telephone Encounter - Sonia Diane - 05/30/2023 10:50 AM EST 08/18/2023 EGD HART documented in this encounterSelect [facility] [place]12-01-2023 Miscellaneous Notes* Telephone Encounter - Felicitas Glover [...] notify patient. Lorraine Randle documented in this encounterSelect Medical [facility]ty [facility] [place]11-20-2023 History of Present illness Narrative* Dianna Ballard APRN.BOLT SORTER - 03/31/2023 12:01 PM EST CC: Patient [...] left Dr. Manuel Hoover - Dr. Alessio Welch PAST SURGICAL HISTORY OF NECK SURGERY, anterior [...] YRS/> REDUCIBLE 07/17/2010 Hernia repair, umbilical >5yr [facility] Dr Manuel Hoover SHX COSMETIC SURGERY [...] Take 0.5 tablets by mouth twice daily. yqbotiftctr-swgtbzdmf-kivnamxd (TRELEGY ELLIPTA) 100-62.5-25 mcg inhalation powder Inhale [...] 1,000 mg by mouth five times daily. TYUHPJT-TBHPTZTYV-JSVO ORAL Take by mouth. lidocaine (LIDODERM) 5 [...] 3) due on 02/11/2024 Covid-19 Vaccine(4 - 2023-24 season) due on 02/11/2024 Annual PCP Team [...] plan. Dianna Ballard APRN.CNP documented in this encounterSelect [facility] [place]11-13-2023 Miscellaneous Notes* Telephone Encounter - Toshia Jaquez [...] you. Toshia Jaquez LPN. documented in this encounterSelect Medical [facility] [place]11-13-2023 History of Present illness Narrative* Laith Montes MD - 03/24/2023 6:09 AM EST [employer] 02/26/2023: Recording time 5 hours 54 min Saturation < 88% 94 min Lowest saturation 68% Confirms need for nocturnal oxygen documented in this encounterSelect Medical [facility] [place]11-06-2023 Instructions* Patient Instructions* Lupe Ballard APRN.BOLT SORTER - 03/17/2023 2:30 PM EST Fact Sheet [...] of LAGEVRIO during to this registry at [email or web address] or . For individuals who are sexually [...] virus. COVID-19 illnesses have ranged from very fuzc-jk-zdatou, including illness resulting in . While information [...] serious illnesses Take any medicines including prescription, msud-smu-fgtadxe medicines, vitamins, and herbal products. How do [...] NG or OG that is size 12 Qatari (FR) or larger. If you miss a [...] to treat people with COVID-19. Go to https://www.fda.gov/amtehpmbs-fysdsofliuoe-zff-response/bwu-skdzpdnclookdwj-cjh- policy-framework/hvmnjvkpc-yej-aohwjgaxepxvk for more information. It is your choice [...] to FDA MedWatch at www.fda.gov/medwatch or call 1-800-fda-1088 (1258.895.9876). How should I store LAGEVRIO? Store LAGEVRIO capsules at room temperature between 68 F to 77 F (20 C to 25 C). Keep LAGEVRIO and all medicines out of the reach of children. How can I learn more about COVID-19? Ask your healthcare provider. Visit www.cdc.gov/COVID19 Contact your local or state public health department. Call [employer] at (toll free in the [place] Visit www.My Own Med.ThinkSmart What Is an Emergency Use Authorization (EUA)? The [place] FDA has made LAGEVRIO available under an emergency access mechanism called an Emergency Use Authorization (EUA) The EUA is supported by a Triple Air Valve Tester of Health and Human Service ([facility])declaration that circumstances exist to justify emergency use of drugs and biological products during the COVID-19 pandemic. LAGEVRIO for the treatment of adults with a current diagnosis of fgxs-eg-dwhawczl COVID-19 who are at high risk for [...] no longer be used under the EUA). for: [employer] [address] For patent information: www.ESBATech.ThinkSmart/research/patent Copyright [employer] [place], [place], [place] and its affiliates. All rights reserved. [id number] Revised: June 2022 documented in this encounterSelect Medical Specialty [facility] [place]11-06-2023 History of Present illness Narrative* Lupe Ballard APRN.CNP - 03/17/2023 2:20 PM EST This Team Access Model visit is a phone encounter. It required patient-provider interaction for themedical decision making as documented below. I have communicated my name and active licensure. The patient's identity and physical location wereverified at the time of this visit. Either the patient or their legal direct marketing representative has been informed of the risks and benefits of -- and alternatives to -- treatment through a remote evaluation andconsents to proceed with the evaluation remotely. Patient Location: [place] CC: Patient presents with: Covid19 Concern HPI: [...] left Dr. Manuel Hoover - Dr. Alessio Welch PAST SURGICAL HISTORY OF NECK SURGERY, anterior [...] YRS/> REDUCIBLE 07/17/2010 Hernia repair, umbilical >5yr [facility] Dr Manuel Hoover SHX COSMETIC SURGERY [...] Take 0.5 tablets by mouth twice daily. eqvidtnlfzg-htyalozwl-xbourqup (TRELEGY ELLIPTA) 100-62.5-25 mcg inhalation powder Inhale [...] 1,000 mg by mouth five times daily. FJPTBHN-SVOCRRGFR-LBNK ORAL Take by mouth. FAMILY HISTORY Problem [...] care. Lupe Ballard APRN.CNP documented in this encounterSelect Medical Specialty [facility] [place]10-24-2023 Miscellaneous Notes* Telephone Encounter - Jenniefr Rudd PA-C - 03/04/2023 4:33 PM EDT Rx sent again. Jennifer Rudd PA-C * Telephone Encounter - Leif Orlando LPN - 03/04/2023 12:30 PM EDT John from [facility] Pharm calling for clarification on pt's diclofenac, EC 75 mg. States order is written for Can use every other day. States he needs to know how many tablets and how many times per pay pt can take this. Please advise. Can send a new rx or call pharm back. Leif Orlando LPN documented in this encounterSelect Medical Specialty Hospital [facility] [place]10-24-2023 Miscellaneous Notes* Telephone Encounter - Ruby Johns OCCA - 03/04/2023 1:24 PM EDT Patient was seen in office 03/04 by Lonny Rudd and below was discussed. Nothing further at this time. MARJ Yusuf * Telephone Encounter - Dianna Ballard APRN.CNP - 03/03/2023 12:20 PM EDT Unfortunately she needs an appointment. She is seeing Jennifer tomorrow. Did she already go back to work? Dianna Ballard APRN.CNP * Telephone Encounter - Ruby Johns OCCA - 02/28/2023 9:42 AM EDT Patient last seen by Kaci Ballard on 02/10/23. Routing message there. MARJ Yusuf * Telephone Encounter - Adriana Lopes - 02/28/2023 9:18 AM EDT Called patient to reschedule her appointment that she had to day with Dianna Ballard and patient stated that she needs [...] on Friday. Please call patient back at to advice what the patient should do. Thank you Adriana Lopes documented in this encounterSelect Medical Specialty Hospital [facility] [place]10-24-2023 History of Present illness Narrative* Jennifer Rudd PA-C - 03/04/2023 12:20 PM EDT [...] nocturnal oxygen testing performed through Dr. Montes (pulm, [facility]) Had CVA in 08/01, and has [...] left Dr. Manuel Hoover - Dr. Alessio Welch PAST SURGICAL HISTORY OF NECK SURGERY, anterior [...] YRS/> REDUCIBLE 07/17/2010 Hernia repair, umbilical >5yr [facility] Dr Manuel Hoover SHX COSMETIC SURGERY SKIN BIOPSY HX ALLERGIES Cardizem [Diltiazem Hcl], Codeine, Entex [Phenylephrine-Guaifenesin], Etodolac, Meloxicam, Naproxen, Surgical Tape Adhesives [Other], Trazodone, and Zantac [Ranitidine Hcl] MEDICATIONS JARDIANCE 10 mg tablet Take 10 mg by mouth once daily. metoprolol succinate ER (TOPROL XL) 25 mg 24 hr tablet Take 0.5 tablets by mouth twice daily. aczvhhjjxyj-irmvgeqme-kyrpjbrp (TRELEGY ELLIPTA) 100-62.5-25 mcg inhalation powder Inhale [...] 1,000 mg by mouth five times daily. HGJJRNE-ZONSTZPTL-DSQR ORAL Take by mouth. lidocaine (LIDODERM) 5 [...] Fletcherlekyle Ellipta. Follow-up as planned with Dr. Montes [...] symptoms occur. Patient agreeable to treatment plan. Jennifer Rudd PA-C documented in this encounterSelect Medical Specialty [facility] [place]10-23-2023 Miscellaneous Notes* Telephone Encounter - Tamica Dolan LPN - 03/03/2023 1:17 PM EDT Please see attach overnight pulse ox results and advise. 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 Much [...] left Dr. Manuel Hoover - Dr. Alessio Welch PAST SURGICAL HISTORY OF NECK SURGERY, anterior [...] YRS/> REDUCIBLE 07/17/2010 Hernia repair, umbilical >5yr [facility] Dr Manuel Hoover SHX COSMETIC SURGERY [...] tablet Take two daily for 5 days. hckaaawhmif-aukxapvwy-unvkshoy (TRELEGY ELLIPTA) 100-62.5-25 mcg inhalation powder Inhale [...] daily. (Patient not taking: No sig reported) MPEEPWP-ZSABJAEDN-HKBR ORAL Take by mouth. FAMILY HISTORY Problem [...] plan. Dianna Ballard APRN.CNP documented in this encounterSelect Medical Specialty [facility] [place]09-19-2023 Instructions* Patient Instructions* Юлия Oden MD - 01/28/2023 8:09 PM EDT Fill prescription for C diff if develop symptoms as before. Can get tested if needed documented in this encounterSelect Medical Specialty Hospital [facility] [place]09-19-2023 History of Present illness Narrative* Юлия Oden MD - 01/28/2023 7:33 PM EDT This note was created using Bosse Toolsriter. Subjective Elizabeth Persaud is a 77 year [...] had ablation therapy for a fib through [facility] but states that did not work well. [...] tablet Take two daily for 5 days. ivfbgfwgrog-exnddmsgo-qeqxdqjh (TRELEGY ELLIPTA) 100-62.5-25 mcg inhalation powder Inhale [...] daily. (Patient not taking: No sig reported) ILBYEBB-NDBDIDJFB-VYAA ORAL Take by mouth. No current facility-administered [...] at times stil low and sometimes. Nagi Sharma will see this 2. Chronic obstructive pulmonary disease with acute exacerbation (HCC) J44.[address] Laith Montes; doing better 3. History of Clostridium difficile colitis Z86.19 Antibiotic given for just in case 4. Chronic congestive heart failure, unspecified heart failure type (HCC) I50.9 compensated; needs new marker shipments in [facility] system Above issues addressed with [...] the date of the service which included clvq-ex-ljni patient care, completing clinical documentation, obtaining and/or reviewing separately obtained history, performing a medically appropriate examination, counseling and educating the patient/family/caregiver, and ordering medications, tests, or procedures. Юлия Oden MD documented in this encounterSelect Medical Specialty [facility] [place]09-18-2023 History of Present illness Narrative* Laith Montes MD - 01/27/2023 12:45 PM EDT Images from the original note were not included. . [facility] [place] Note Patient name: Elizabeth Persaud PCP: Minerva [...] for evaluation of COPD. Recently admitted to [facility] with hypoxemic respiratory failure due to [...] BNP <450 pg/mL 516 High Resulting Agency [facility] Imaging / Diagnostic Studies: DATE OF EXAM: [...] acute radiographic abnormality. Reviewed chest CT from [facility] 04/27/2022 shows moderate upper lobe emphysema [...] tablet Take two daily for 5 days. ebzmpsrbmyc-rujmpvtyy-jvgptbmt (TRELEGY ELLIPTA) 100-62.5-25 mcg inhalation powder Inhale [...] daily. (Patient not taking: No sig reported) XQPRPOT-YJZUHGSET-FOVF ORAL Take by mouth. Social History Tobacco [...] left Dr. Manuel Hoover - Dr. Alessio Welch PAST SURGICAL HISTORY OF NECK SURGERY, anterior [...] YRS/> REDUCIBLE 07/17/2010 Hernia repair, umbilical >[address]yr [address] Manuel Hoover SHX COSMETIC SURGERY SKIN [...] -Anticoagulated -Rate controlled Laith Montes MD [facility] [place] documented in this encounterSelect Medical Specialty [facility] [place]09-15-2023 Miscellaneous Notes* Telephone Encounter - Stephanie Randolph [...] or worsening of symptoms. Thank you Dianna Ballrad APRN.ANITHA * Telephone Encounter - Stephanie Randolph Ma [...] dose of metoprolol? Thank you Dianna Ballard APRN.ANITHA * Telephone Encounter - Stephanie Randolph Ma - 01/24/2023 8:55 AM EDT Pt had blood work done at [facility] View External Labs - Chemistry [ID [id number]] Stephanie Randolph Ma documented in this encounterSelect Medical Specialty [facility] [place]09-14-2023 Instructions* Patient Instructions* Dianna Ballard APRN.CNP - 01/23/2023 3:00 PM EDT Decrease Metoprolol to 25mg Twice daily until you see cardiology. Flonase 2 sprays each nostril before bed and rinse out mouth after. documented in this encounterSelect Medical Specialty [facility] [place]09-14-2023 History of Present illness Narrative* Dianna Ballard APRN.CNP - 01/23/2023 2:19 PM EDT CC: Patient presents with: Hospital F/U [facility] Elizabeth Persaud is a 77 year old [...] pulmonology, but unable to get into [place] pulmonology until April. Presents today stating she [...] left Dr. Manuel Hoover - Dr. Alessio Welch PAST SURGICAL HISTORY OF NECK SURGERY, anterior [...] YRS/> REDUCIBLE 07/17/2010 Hernia repair, umbilical >5yr [facility] Dr Manuel Hoover SHX COSMETIC SURGERY [...] (ONE-A-DAY 50 PLUS ORAL) Take by mouth. QAWXOLW-XPULXENPW-YJGA ORAL Take by mouth. CALCIUM CARBONATE/VITAMIN D3 [...] last year, trying to find a new marker shipments that she can see regularly - ECG [...] trying to get patient in with [facility] cell biology scientist - CONSULT TO CARDIOLOGY 8. History of recent hospitalization - ICD9: V13.9, ICD10: Z92.89 - D-DIMER 9. Acute pain of right shoulder - ICD9: 719.41, ICD10: M25.511 - scapula tender but no deformities noted - XR SHOULDER [id number] AP/TRUE AP RIGHT 10. Fall, initial encounter - ICD9: E888.9, ICD10: W19.XXXA - XR SHOULDER [id number] AP/TRUE AP RIGHT Prescription instructions reviewed with patient as applicable. Potential red flag symptoms discussed with the patient. Reviewed appropriate action plan to take if red flag symptoms occur. Patient agreeable to treatment plan. Dianna Ballard APRN.CNP documented in this encounterSelect Medical Specialty [facility] [place]09-01-2023 History of Present illness Narrative* Dianna Ballard [...] legs at the same time. Went to [facility] for her scheduled visit but [...] left Dr. Manuel Hoover - Dr. Alessio eWlch PAST SURGICAL HISTORY OF NECK SURGERY, anterior [...] YRS/> REDUCIBLE 07/17/2010 Hernia repair, umbilical >5yr [facility] Dr Manuel Hoover SHX COSMETIC SURGERY [...] daily. (Patient not taking: No sig reported) QWLLHHP-SLAOFTMWJ-XDOF ORAL Take by mouth. FAMILY HISTORY Problem [...] by cardiology - patient has appointment with marker shipments next Friday - Follow up in 2 [...] symptoms occur. Patient agreeable to treatment plan. Dianan Ballard APRN.CNP documented in this encounterSelect Medical Specialty [facility] [place]08-25-2023 History of Present illness Narrative* Dianna Ballard [...] GFR was 57 and Creatinine 1.03 Facility: [facility] Date of visit: 12-31-01/02 Reason for visit: [...] left Dr. Manuel Hoover - Dr. Alessio Welch PAST SURGICAL HISTORY OF NECK SURGERY, anterior [...] YRS/> REDUCIBLE 07/17/2010 Hernia repair, umbilical >5yr [facility] Dr Manuel Hoover SHX COSMETIC SURGERY [...] daily. (Patient not taking: No sig reported) HRLXYWF-HWJVELPCW-ZYZG ORAL Take by mouth. FAMILY HISTORY Problem [...] MAMMOGRAM Discontinued DATA REVIEWED: Outside chart from [facility] reviewed. Also reviewed recent lab work for [...] plan. Dianna Ballard APRN.CNP documented in this encounterSelect Medical Specialty [facility] [place]08-24-2023 Consult note Author Jennifer Taylor [facility] January 02, 2023 11:58am Note Date/Time January 02, 2023 11 :58am [facility] Medical Records Department [address] [place] [address] Counseling Note - Pharmacy 01/02/23 1148 MR#: [id number] Acct: [id number] Name: ELIZABETH PERSAUD Rep #:[id number] : 1945 77 From: Jennifer Taylor PCP: Dr. Minerva Shaver MD Status:ADM I N Y Location: [place] [address] Pharmacy [facility] Service has performed discharge medication reconciliation [...] caps 01/02/23 01/02/23 1158 <Electronically signed by Jennifer Taylor > Date _ Jennifer Taylor Cosigner Signature (if applicable): Date CC: ~ Signed [facility] Work Phone: 1(976) 438-944808-24-2023 Discharge summary Author Josep Vasquez [facility] January 02, 2023 2:51pm Note Date/Time January 02, 2023 10 :10am [facility] Medical Records Department [address] [place] [address] Discharge Summary 01/02/23 1007 MR#: [id number] Acct: [id number] Name: ELIZABETH PERSAUD Rep #:[id number] : 1945 77 From: Josep Vasquez MD PCP: Dr. Minerva Shaver MD Status:ADM I N Location: [place] [address] Providers Date of Admission: 12/31/22 Date of [...] Patient is followed by Dr. Chaidez at [facility] as outpatient 8. Hypertension - Blood pressure [...] for PT OT eval and social work instructor to assist with discharge planning Time spent [...] % (Auto) 64.1, Lymph % (Auto) 25.2, Carbon% (Auto) 8.0, Eos % (Auto) 2.1, Baso [...] Self Care Charges/Coding Visit Charges Inpatient E&M: 49796 Disch Hosp >30min 01/02/23 1014 <Electronically signed [...] MD; Dr. Josep Vasquez MD ~* Signed [facility] Work Phone: 1(374) 315-498608-24-2023 Progress note Author Josep Vasquez [facility] January 02, 2023 10:07am Note Date/Time January 02, 2023 8: 16am [facility] Medical Records Department [address] [place] [address] Progress Note - Hospitalist 01/02/23812 MR#: [id number] Acct: [id number] Name: ELIZABETH PERSAUD Rep #:[id number] : 1945 77 From: Josep Vasquez MD PCP: Dr. Minerva Shaver MD Status:ADM I N Location: [place] [address] Reason for Visit Reason for Visit: Diagnoses [...] Intake and Output for Last 24 Hours 08/22/23 08/23/23 08/24/23 23:59 23:59 23:59 Intake Total 1325.00 / [...] % (Auto) 64.1, Lymph % (Auto) 25.2, Carbon% (Auto) 8.0, Eos % (Auto) 2.1, Baso [...] Patient is followed by Dr. Chaidez at [facility] as outpatient 8. Hypertension - Blood pressure [...] for PT OT eval and social work instructor to assist with discharge planning Time spent in the patient's overall evaluation,decision-making process, review of diagnostic data, adjustment of management, discussion with other providers, nursing nursing and ancillary staff involved in patient's care documentation, 35minutes Charges/Coding Visit Charges Inpatient E&M: 81016 Subs Hosp L2 01/02/23 1007 <Electronically signed by Josep Vasquez MD> Cosigner Signature (if applicable): CC: ~ Signed [facility] Work Phone: 1(769) 343-888108-23-2023 Progress note Author Josep Vasquez [facility] January 01, 2023 10:15am Note Date/Time January 01, 2023 7: 54am [facility] Medical Records Department [address] [place] [address] Progress Note - Hospitalist 01/01/23 0754 MR#: [id number] Acct: [id number] Name: ELIZABETH PERSAUD Rep #:[id number] : 1945 77 From: Josep Vasquez MD PCP: Dr. Minerva Shaver MD Status:ADM I N Location: [place] [address] Reason for Visit Reason for Visit: Diagnoses [...] % (Auto) 61.1, Lymph % (Auto) 27.7, Carbon % (Auto) 9.2, Eos % (Auto) 1.2, [...] Shaver Performed By: Usha Mcdonald, RDCS, RVT Rhythm Strip Rhythm Strip: Sinus [...] Patient is followed by Dr. Chaidez at [facility] as outpatient 8. Hypertension - Blood pressure [...] for PT OT eval and social work instructor to assist with discharge planning Time spent in the patient's overall evaluation,decision-making process, review of diagnostic data, adjustment of management, discussion with other providers, nursing nursing and ancillary staff involved in patient's care documentation, 50 Minutes Charges/Coding Visit Charges Inpatient E&M: 59513 Subs Hosp 01/01/23 1015 <Electronically signed by Josep Vasquez MD> Cosigner Signature (if applicable): CC: ~ Signed [facility] Work Phone: 1(302) 283-181708-22-2023 Progress note Author Josep Vasquez [facility] December 31, 2022 9:41am Note Date/Time December 31, 2022 7: 42am [facility] Medical Records Department [address] [place] [address] Progress Note - Hospitalist 12/31/22 0737 MR#: [id number] Acct: [id number] Name: ELIZABETH PERSAUD Celsa Rep #:[id number] : 1945 77 From: Josep Vasquez MD PCP: Dr. Minerva Shaver MD Status:ADM I N Location: [place] [address] Reason for Visit Reason for Visit: Diagnoses [...] (Auto) 71.3 H, Lymph % (Auto) 20.8, Carbon % (Auto) 6.4, Eos % (Auto) 0.7, [...] 81.0 H, Lymph % (Auto) 12.9 L, Carbon % (Auto) 5.3, Eos % (Auto) 0.1, [...] Radiography Diagnostic Testing: Radiology Impression Chest X-Ray 08/22/23 01:25 IMPRESSION: Increased interstitial prominence may represent an inflammatory or infectious process. CHF is thought to be less likely but is not excluded. No demonstrated focal pulmonary consolidation. Electronically Signed: Jimbo Pop MD at 2:45 EDT Reading Location ID and State: [facility] / [place] , Service support , Rhythm Strip Rhythm Strip: Sinus Rhythm [...] Patient is followed by Dr. Chaidez at [facility] as outpatient 8. Hypertension - Blood pressure [...] 50 Minutes Charges/Coding Visit Charges Inpatient E&M: 66932 [facility] Hosp 12/31/22 0941 <Electronically signed by Josep Vasquez MD> Cosigner Signature (if applicable): CC: ~ Signed [facility] Work Phone: 1(223) 152-792708-22-2023 Discharge summary Author Sohan Shelton [facility] December 31, 2022 4:41am Note Date/Time December 31, 2022 1: 29am [facility] Medical Records Department [address] [place] [address] Emergency Department Summary 12/31/22 MR#: [id number] Acct: [id number] Name: ELIZABETH PERSAUD Rep #:[id number] : 1945 77 From: Sohan Shelton MD PCP: Dr. Minerva Shaver MD Status:ADM I N Location: [place] [address] HPI History of Present Illness Chief Complaint: [...] does have new swelling in her legs. [facility] Medical History Abnormal bruising Acute cholecystitis Acute [...] History of DVT (deep vein thrombosis) Hypertension residential (current) use of anticoagulants Non-rheumatic tricuspid valve [...] (Auto) 71.3 H Lymph % (Auto) 20.8 Carbon % (Auto) 6.4 Eos % (Auto) 0.7 [...] min), Including time spent:, Discussing w/Patient &/or Family/Dock Worker, Discussing w/Consultants, Arranging Admission or Transfer and [...] Provider] - Disposition Disposition: Acute Care Hospital [facility] What to do if you have Problems For any increased pain, shortness of breath, bleeding, nausea or vomiting, chestpain, or any unexpected problems, contact your Primary Care Provider. Call [facility] ([phone]) or report to the closest Emergency Room. Call 911 if necessary. 12/31/22 4051 <Electronically signed by Sohan Shelton MD> Cosigner Signature (if applicable): CC: Dr. Minerva Shaver MD ~ Signed [facility] Work Phone: 1(543) 877-465008-22-2023 History and physical note Author Stephanie Scales [facility] December 31, 2022 3:10am Note Date/Time December 31, 2022 2: 29am [facility] Medical Records Department [address] [place] [address] H&P Exam - Hospitalist 12/31/22 0228 MR#: [id number] Acct: [id number] Name: ELIZABETH PERSAUD Rep #:[id number] : 1945 77 From: Stephanie Scales DO PCP: Dr. Minerva Shaver MD Status:ADM I N Location: [place] [address] HPI - General General Date of Admission: 12/31/22 Date of Service: 12/31/22 Chief Complaint: Shortness of breath HPI Narrative ELIZABETH PERSAUD, is a 77 F who presented to the emergency department at [facility] with a chief complaint of shortness of [...] weight gain of 15 pounds since July whenodelle had her stroke. She was unable to [...] sinus rhythm with out QTc prolongation, normal OK interval, and no ST/T wave changes concerning for acute ischemia. 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 Persaud at [facility] Chronic diastolic/right-sided heart failure -Previous echo as [...] -Full code Charges/Coding Visit Charges Inpatient E&M: 31285 Init Hosp L3 12/31/22 0310 <Electronically signed by Stephanie Scales DO> Cosigner Signature (if applicable): CC: Dr. Minerva Shaver MD; Dr. Stephanie Scales DO~ Signed [facility] Work Phone: 1(502) 915-179008-21-2023 Miscellaneous Notes* Telephone Encounter - Felicitas Prince LPN - 12/30/2022 6:13 PM EDT Patient notified. Felicitas Prince LPN * Telephone Encounter - Jennifer Rudd PA-C - 12/30/2022 5:39 PM EDT [...] soap and water as frequently as possible. Jennifer Rudd PA-C * Telephone Encounter - Tamanna Cordova Ma - 12/30/2022 4:33 PM EDT Patient [...] Please call patient and getupdate on symptoms. Jennifer, As I am out of the office, would you be willing to prescribe treatment for c- diff if patient is still symptomatic? I only want to treat if necessary as she has had multiple concerns and med changes over the last year. Thank you Dianna Ballard APRN.CNP documented in this encounterSelect Medical Specialty [facility] [place]08-17-2023 Miscellaneous Notes* Telephone Encounter - Olga Lidia Lima RN - 12/26/2022 4:53 PM EDT Spoke with patient. Given message from provider's office. Patient verbalizes understanding. Olga Lidia Lima RN * Telephone Encounter - Asha Ortiz RN - 12/26/2022 4:50 PM EDT Called and left a voicemail for the Patient to call back and ask for a nurse to receive the providers message. Asha Ortiz RN * Telephone Encounter - Dianna Ballard APRN.CNP - 12/26/2022 4:31 PM EDT Please let patient know that her CT scan did not show any acute concerns for her intense abdominal pain and bowel changes. We can discuss further at your follow up appointment. I am ordering stool samples to check for any infectious process. Thank you Dianna Ballard APRN.ANITHA documented in this encounterSelect [facility] [place]08-17-2023 History of Present illness Narrative* Reef Sunday [...] 2022 TIME: 3:32 PM documented in this encounterSelect Medical Specialty [facility] [place]08-17-2023 History of Present illness Narrative* Dianna Ballard APRN.BOLT SORTER - 12/26/2022 12:49 PM EDT CC: Patient [...] left Dr. Manuel Hoover - Dr. Alessio Welch PAST SURGICAL HISTORY OF NECK SURGERY, anterior [...] YRS/> REDUCIBLE 07/17/2010 Hernia repair, umbilical >5yr [facility] Dr Manuel Hoover SHX COSMETIC SURGERY [...] daily. (Patient not taking: No sig reported) RXGDSXK-[id number]-NVWA ORAL Take by mouth. FAMILY HISTORY Problem [...] plan. Dianna Ballard APRN.CNP documented in this encounterSelect Medical Specialty [facility] [place]08-04-2023 Miscellaneous Notes* Telephone Encounter - Dianna Ballard [...] care Dianna Ballard APRN.CNP documented in this encounterSelect Medical Specialty [facility] [place]08-03-2023 History of Present illness Narrative* Nikki Stoddard [...] DATA: Not applicable SIGNED BY: RT Kd(R) December 12, 2022 12:54 PM documented in this encounterSelect Medical Specialty [facility] [place]08-03-2023 History of Present illness Narrative* Dianna Ballard APRN.BOLT SORTER - 12/12/2022 11:52 AM EDT CC: Patient [...] some pain yesterday in her right ear. contract administration specialist she saw 2 weeks ago and [...] left Dr. Manuel Hoover - Dr. Alessio Welch PAST SURGICAL HISTORY OF NECK SURGERY, anterior [...] YRS/> REDUCIBLE 07/17/2010 Hernia repair, umbilical >5yr [facility] Dr Manuel Hoover SHX COSMETIC SURGERY [...] daily. (Patient not taking: No sig reported) [id number]-YMBOLAJAC-YVGD ORAL Take by mouth. FAMILY HISTORY Problem [...] plan. Dianna Ballard APRN.CNP documented in this encounterSelect Medical Specialty [facility] [place]07-17-2023 Discharge summary Author Yeyo Wooten [facility] November 25, 2022 3:42pm Note Date/Time November 25, 2022 3:42 pm [facility] Physical Therapy [facility] [address] [place] [address]. [address] [place] [address] / REHABILITATION SERVICES DISCHARGE SUMMARY MR#: [id number] Acct: [id number] Name: ELIZABETH PERSAUD Rep #: [id number] : 1945 77 From: Yeyo Wooten PT, ATC Referring DrDino: PERLITA FLOWERS Status: REG RCR Insurance: [employer] HMO IN [facility] 03/12/18 Discharge Summary D/C summary: It has been my pleasure to treat ELIZABETH PERSAUD referred by Dr. Perlita Flowers MD, with the diagnosis of L Le [...] please feel free to call me at [phone]. Thank you for the referral of thispatient. Sincerely, Yeyo Wooten, PT, ATC Balance/Gait/Functional tests Balance/Special Test Scores Functional Gait Assessment Score: 23 % Disability: 23.3400 Lower Extremity Functional Score: 51 30 Second Chair Rise Test Seconds: 13 <Electronically signed by Yeyo Wooten PT, ATC> 11/25/22 1542 CC: Dr. Minerva Shaver MD; PERLITA FLOWERS ~ [facility] Signed [facility] Work Phone: 1(798) 118-534206-22-2023 History of Present illness Narrative* Minerva Shaver [...] left Dr. Manuel Hoover - Dr. Alessio Welhc PAST SURGICAL HISTORY OF NECK SURGERY, anterior [...] YRS/> REDUCIBLE 07/17/2010 Hernia repair, umbilical >5yr [facility] Dr Manuel Hoover SHX COSMETIC SURGERY [...] MULTIVITAMIN WITH MINERALS (ONE-A-DAY 50 PLUS ORAL) PIPHIED-EPDFCVRLH-MMJZ ORAL sucralfate (CARAFATE) 1 gram tablet CALCIUM [...] Cont all meds till she sees the marker shipments 2. Generalized arthritis - ICD9: 716.90, ICD10: [...] medications Minerva Shaver MD documented in this encounterSelect Medical Specialty [facility] [place]05-23-2023 History of Present illness Narrative* Zuleyma Persaud DO - 10/01/2022 12:00 AM EDT NAME: ELIZABETH PERSAUD CLINIC NO: [id number] DATE OF SERVICE: 10/01/2022 Subjective: Elizabeth is [...] concerns. Zuleyma Persaud D.O. KB/089 Audio #: [id number] Date Dictated: 10/01/2022 09:14:01 Date Typed: 10/05/2022 05:09:37 Date Revised: documented in this encounterSelect Medical Specialty [facility] [place]05-18-2023 History of Present illness Narrative* Nikki Stoddard [...] 26, 2022 10:54 AM documented in this encounterSelect Medical Specialty [facility] [place]05-05-2023 Instructions* Patient Instructions* Perlita Flowers MD - 09/13/2022 11:16 AM EDT We will schedule physical therapy in [place]. Regular exercise and institute fall precautions. May [...] follow-up visit as needed. documented in this [id number] History of Present illness Narrative* Perlita Flowers MD - 09/13/2022 10:37 AM EDT Neurology Outpatient Consult [facility] [address] [place] [address] (phone)/[phone] (fax) Patient: Elizabeth Persaud Date of : [...] Suggestion: We will schedule physical therapy in [place]. Regular exercise and institute fall precautions. May [...] cell) Chew apixaban (ELIQUIS) 5 mg Tab QRMPAQD-UGDKHFMOX-MYNC ORAL flecainide (TAMBOCOR) 100 MG tablet furosemide [...] 2022. She was admitted and evaluated in [facility]. Her brain MRIshowed no acute stroke. Her [...] or delusion. 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 No recent falls or injury. She does [...] clonus. Gait is limping. documented in this [id number] History of Present illness Narrative* Zuleyma Persaud DO - 09/03/2022 10:30 AM EDT Images from the original note were not included. [facility] [place] DEPARTMENT OF VASCULAR SURGERY OUTPATIENT VISIT DATE September 03, 2022 OUTPATIENT VISIT TYPE CONSULTATION SERVICE DATE: 09/03/2022 SERVICE TIME: 10:30 AM PRIMARY CARE PHYSICIAN: Mienrva Shaver MD REFERRING PROVIDER: Zuleyma Persaud [address] [facility] [address] Consult requested for an opinion regarding the [...] left Dr. Manuel Hoover - Dr. Alessio Welch PAST SURGICAL HISTORY OF NECK SURGERY, anterior [...] YRS/> REDUCIBLE 07/17/2010 Hernia repair, umbilical >5yr [facility] Dr Manuel Hoover SHX COSMETIC SURGERY [...] (ONE-A-DAY 50 PLUS ORAL) Take by mouth. RTRMECG-DNSSGFXIX-XLMW ORAL Take by mouth. sucralfate (CARAFATE) 1 [...] 2022 TIME: 10:30 AM documented in this encounterSelect Medical Specialty [facility] [place]04-20-2023 History of Present illness Narrative* Minerva Shaver [...] diastolic dysfunction She has been to the marker shipments for 2 days ago and is back [...] left Dr. Manuel Hoover - Dr. Alessio Welch PAST SURGICAL HISTORY OF NECK SURGERY, anterior [...] YRS/> REDUCIBLE 07/17/2010 Hernia repair, umbilical >5yr [facility] Dr Manuel Hoover SHX COSMETIC SURGERY [...] ORAL) CALCIUM CARBONATE/VITAMIN D3 (VITAMIN D-3 ORAL) KRYKUJW-KPUNMIAAG-XKIV ORAL Review of Systems CONSTITUTIONAL: No fevers, [...] point Minerva Shaver MD documented in this encounterSelect Medical Specialty [facility] [place]04-01-[address] Hall [facility] August 10, 2022 12:14pm Note Date/Time August 10, 2022 7:[address] [facility] Medical Records Department [address] [place] [address] Progress Note - Hospitalist 08/10/22 0746 MR#: [id number] Acct: [id number] Name: ELIZABETH PERSAUD Rep #:[id number] : 1945 77 From: Farhad Hall DO PCP: Dr. Minerva Shaver MD Status:ADM I N Location: [place] [address] Reason for Visit Reason for Visit: Diagnoses [...] No evidence for large vessel occlusion the morongo of [place] region. Electronically Signed: Leonora Matthews [...] still bradycardic. Charges/Coding Visit Charges Inpatient E&M: 79330 Subs Hosp L2 08/10/22 1214 <Electronically signed by Farhad Hall DO> Cosigner Signature (if applicable): CC: ~ Signed [facility] Work Phone: 1(148) 451-112404-01-[address] Hall [facility] August 10, 2022 7:48am Note Date/Time August 10, 2022 7:49 am [facility] Medical Records Department [address] [place] [address] Telemedicine Confirmation Receipt 08/10/22 MR#: [id number] Acct: [id number] Name: ELIZABETH PERSAUD Rep #:[id number] : 1945 77 From: Farhad Hall DO PCP: Dr. Minerva Shaver MD Status:ADM I N SOC Telemed has confirmed receipt of a request for visit. This document confirms receipt of the order initiating the consult. To find the results of the consultation, please view the patient's reports for the scanned Telemed Consult. [facility] Work Phone: 1(388) 383-297903-31-[address] Hall [facility] August 09, 2022 1:05pm Note Date/Time August 09, 2022 7:5 3am [facility] Medical Records Department [address] [place] [address] Progress Note - Hospitalist 08/09/22 075 MR#: [id number] Acct: [id number] Name: ELIZABETH PERSAUD Rep #:[id number] : 1945 77 From: Farhad Hall DO PCP: Dr. Minerva Shaver MD Status:ADM I N Location: [place] [address] Reason for Visit Reason for Visit: Diagnoses [...] % (Auto) 59.9, Lymph % (Auto) 28.7, Carbon % (Auto) 9.6, Eos % (Auto) 1.2, [...] therapy evaluations. Charges/Coding Visit Charges Inpatient E&M: 07443 Subs Hosp L2 08/09/22 1302 <Electronically signed by Farhad Hall DO> Cosigner Signature (if applicable): CC: ~ Signed [facility] Work Phone: [phone]) 332-923503-31-2023 Miscellaneous Notes* Telephone Encounter - Dianna Ballard APRN.CNP - 08/09/2022 7:59 AM EDT Noted Dianna Ballard APRN.CNP * Telephone Encounter - Olga Lidia Lima RN - 08/08/2022 7:45 PM EDT Patient did go to [facility] ER. Olga Lidia Lima RN * Telephone [...] nausea 8. : NO Protocols used: Neurologic Csmvxnz-CJKJP-LJ documented in this encounterSelect Medical Specialty [facility] [place]03-30-2023 History and physical note Author Dr. Hall [facility] August 08, 2022 6:17pm Note Date/Time August 08, 2022 6:1 7pm [facility] Medical Records Department [address] [place] [address] H&P Exam - Hospitalist 08/08/22 1810 MR#: [id number] Acct: [id number] Name: ELIZABETH PERSAUD Rep #:[id number] : 1945 77 From: Farhad Hall DO PCP: Dr. Minerva Shaver MD Status:ADM I N Location: [place] [address] HPI - General General Date of Admission: [...] heart rate has improved into the 50s. [facility] Medical History Abnormal bruising Acute cholecystitis Arthritis [...] % (Auto) 59.9, Lymph % (Auto) 28.7, Carbon % (Auto) 9.6, Eos % (Auto) 1.2, [...] therapy evaluations. Charges/Coding Visit Charges Inpatient E&M: 39718 Init Hosp L3 08/08/22 1817 <Electronically signed by Farhad Hall DO> Cosigner Signature (if applicable): CC: Dr. Minerva Shaver MD; Dr. Farhad Hall DO~ Signed [facility] Work Phone: [phone]) 856-797203-30-[address] Dempsey [facility] August 08, 2022 5:18pm Note Date/Time August 08, 2022 4:2 7pm [facility] Medical Records Department [address] [place] [address] Emergency Department Summary 08/08/22 MR#: [id number] Acct: [id number] Name: ELIZABETH PERSAUD Rep #:[id number] : 1945 77 From: Wilian Dempsey MD [...] BID #30 tabs 07/29/22 [Rx Last Taken 03/27/23] flecainide 100 mg tablet 150 mg PO [...] Discussion w/independent historian: Patient, Friend and Other (Unleavened Dough Mixer, Dr.Cyril Ibarra) Additional record(s) reviewed:: Prior inpatient [...] % (Auto) 59.9 Lymph % (Auto) 28.7 Carbon % (Auto) 9.6 Eos % (Auto) 1.2 [...] 33. There is premature supraventricular complexes noted. OK interval is 168 ms. Cures duration 118 ms. QT duration 474 ms. [place] to left. There is evidence of an RRprime in V1 and V2 consistent with a incomplete right bundle branch block. There is no civic changes noted.) Management Discussion w/another healthcare provider: Hospitalist and Lens Shaper Grinder Critical Care Time Critical Care Time: Yes Critical care time (excluding procedures): 30-74 minutes (37 minutes), Includingtime spent: (History, physical, documentation, review of outside records and interpretation of laboratory results initiation of therapy), Discussing w/Patient &/or Family/Dock Worker, Discussing w/Consultants (Cardiology, hospitalist), Arranging Admission or Transfer and Performing Direct Patient Careat Bedside Discharge Plan Dx/Rx/DC Orders Clinical Impression: Bradycardia, sinus, persistent, severe, 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 Call [facility] ([phone]) or report to the closest Emergency Room. Call 911 if necessary. 08/08/228 <Electronically signed by Wilian Dempsey MD> Cosigner Signature (if applicable): CC: Dr. Minerva Shaver MD ~ Signed [facility] Work Phone: [phone]) 639-519903-30-[address] Dempsey [facility] August 08, 2022 5:18pm Note Date/Time August 08, 2022 4:2 7pm [facility] Medical Records Department [address] [place] [address] Emergency Department Summary 08/08/22 MR#: [id number] Acct: [id number] Name: ELIZABETH PERSAUD Rep #:[id number] : 1945 77 From: Wilian Dempsey MD [...] Discussion w/independent historian: Patient, Friend and Other (Unleavened Dough Mixer, Dr.Cyril Ibarra) Additional record(s) reviewed:: Prior inpatient [...] % (Auto) 59.9 Lymph % (Auto) 28.7 Carbon % (Auto) 9.6 Eos % (Auto) 1.2 [...] 33. There is premature supraventricular complexes noted. OK interval is 168 ms. Cures duration 118 ms. QT duration 474 ms. [place] to left. There is evidence of an RRprime in V1 and V2 consistent with a incomplete right bundle branch block. There is no civic changes noted.) Management Discussion w/another healthcare provider: Hospitalist and Lens Shaper Grinder Critical Care Time Critical Care Time: Yes Critical care time (excluding procedures): 30-74 minutes (37 minutes), Includingtime spent: (History, physical, documentation, review of outside records and interpretation of laboratory results initiation of therapy), Discussing w/Patient &/or Family/Dock Worker, Discussing w/Consultants (Cardiology, hospitalist), Arranging Admission or Transfer and Performing Direct Patient Careat Bedside Discharge Plan Dx/Rx/DC Orders Clinical Impression: Bradycardia, sinus, persistent, severe, residential (current) use of anticoagulants, Chronic diastolic (congestive) heart failure, Acute stroke due to ischemia Disposition Disposition: Acute Care Hospital [facility] What to do if you have Problems For any increased pain, shortness of breath, bleeding, nausea or vomiting, chestpain, or any unexpected problems, contact your Primary Care Provider. Call [facility] ([phone]) or report to the closest Emergency Room. Call 911 if necessary. 08/08/22 1718 <Electronically signed by Wilian Dempsey MD> Cosigner Signature (if applicable): CC: Dr. Minerva Shaver MD ~ Signed [facility] Work Phone: [phone] Miscellaneous Notes* Telephone Encounter - Nadia Bourne - 07/25/2022 12:15 PM EDT Pt already scheduled. Nadia Bourne * Telephone Encounter - Minerva Shaver MD - 07/23/2022 8:03 AM EDT Please set her up with Dr Persaud I do think there is a back component too with it but yes we can see what the vascular part of it is Minerva Pichardo MD * Telephone Encounter - Felicitas Prince LPN - 07/22/2022 12:51 PM EDT This is for problems wanting. Patient walks and then is unable to walk. like the blood flow stopped. Felicitas Prince LPN * Telephone Encounter - Minerva Shaver MD - 07/20/2022 12:32 PM EST Please confirm the diagnosis she needs this for. RegardsMinerva MD * Telephone Encounter - Felicitas Prince LPN - 07/19/2022 4:13 PM EST patient is needing a referral to Dr. Eddie Segal for her insurance. Felicitas Prince LPN documented in this encounterSelect Medical [facility]ty [facility] [place]03-12-2023 History of Present illness Narrative* Katheryn Stokes MD - 07/21/2022 6:31 AM EDT FOLLOW UP VISIT - ENDOSCOPY NAME: Elizabeth Persaud [facility] NO.: [id number] DATE OF SERVICE: July 18, 2022 : [...] patient had a swallow study performed at [facility] which she noted was demonstrating food sticking [...] He noted on upper endoscopy Impression: - Oleg-Persaud Grade I reflux esophagitis. Biopsied. - Normal stomach. Biopsied. - Normal examined duodenum. Lower endoscopy: Impression: - Four 5 mm polyps at 20 cm proximal to the anus and at 30 cm proximal to the anus. Resected and retrieved. - Diverticulosis in the sigmoid colon and in the descending colon. - External and internal hemorrhoids. Pathology demonstrated: Regulatory Affairs Internship Specimen [facility] Specimen #: [id number] Submitting Physician: CARMENCITA CORDOBA MD FINAL DIAGNOSIS [...] regurgitation symptoms. She followed up with her marker shipments on July 05, 2022. TRhey felt she [...] herniarepair. Katheryn Stokes MD documented in this encounterSelect Medical Specialty [facility] [place]02-23-2023 Miscellaneous Notes* Telephone Encounter - Minerva Shaver MD - 07/04/2022 2:47 PM EST Forms were filled * Telephone Encounter - Tamanna Cordova Ma - 06/27/2022 11:38 AM EST [...] When form is completed, Fax form to [facility] Form has been forwarded to Physician Desk: Dr. Dr. Sindhu Saha LPN documented in this encounterSelect Medical Specialty [facility] [place]02-07-2023 Nurse Note* Felicitas Prince LPN - 06/18/2022 3:44 PM EST faxing letter to [facility] HR at [phone] documented in this encounterSelect Medical Specialty [facility] [place]02-07-2023 History of Present illness Narrative* Minerva Shaver [...] left Dr. Manuel Hoover - Dr. Alessio Welch PAST SURGICAL HISTORY OF NECK SURGERY, anterior [...] YRS/> REDUCIBLE 07/17/2010 Hernia repair, umbilical >5yr [facility] Dr Manuel Hoover SHX COSMETIC SURGERY [...] ORAL) CALCIUM CARBONATE/VITAMIN D3 (VITAMIN D-3 ORAL) YERSPZT-LXZPQTJPO-GOHN ORAL Review of Systems CONSTITUTIONAL: No fevers, [...] <130/80 Minerva Shaver MD documented in this encounterSelect Medical [facility] [place]02-06-2023 Miscellaneous Notes* Telephone Encounter - Tamanna Cordova [...] were normal so was vit d Regards, Minerva Shaver MD documented in this encounterSelect Medical Specialty [facility] [place]01-28-2023 History of Present illness Narrative* Minerva Shaver [...] reports. Her imaging studies done at the [facility] radiology CT scan abdomen shows that there is a questionable calcified gallbladder with some abnormalities noted. [facility] [...] imaging hence I am Reaching out. Regards, Minerva Shaver MD documented in this encounterSelect Medical Specialty [facility] [place]01-28-2023 History of Present illness Narrative* Minerva Shaver [...] left Dr. Manuel Hoover - Dr. Alessio Welch PAST SURGICAL HISTORY OF NECK SURGERY, anterior [...] YRS/> REDUCIBLE 07/17/2010 Hernia repair, umbilical >5yr [facility] Dr Manuel Hoover FAMILY HISTORY Problem [...] ORAL) CALCIUM CARBONATE/VITAMIN D3 (VITAMIN D-3 ORAL) EEVMODU-XNWPTCITU-POQX ORAL estradiol (ESTRACE) 0.01 % (0.1 mg/gram) [...] HYDROXY Minerva Shaver MD documented in this encounterSelect Medical [facility]ty [facility] [place]01-17-2023 History of Present illness Narrative* Sunday Ellis [...] 28, 2022 11:57 AM documented in this encounterSelect Medical Specialty [facility] [place]01-16-2023 Miscellaneous Notes* Telephone Encounter - Sonia Diane - 05/27/2022 11:04 AM EST 06/11/2022 colon asc Patient accepted sooner date Sonia Diane Marble Ceiling Installer * Telephone Encounter - Sonia Diane - 05/27/2022 8:37 AM EST Patient on waitlist for sooner opening with Dr. 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 Pathology demonstrated: Regulatory Affairs Internship Specimen [facility] Specimen #: [id number] Submitting Physician: CARMENCITA CORDOBA MD FINAL DIAGNOSIS [...] left Dr. Manuel Hoover - Dr. Alessio Welch PAST SURGICAL HISTORY OF NECK SURGERY, anterior [...] YRS/> REDUCIBLE 07/17/2010 Hernia repair, umbilical >5yr [facility] Dr Maneul Hoover Current Outpatient Medications Medication Sig omeprazole [...] 1,000 mg by mouth five times daily. OZNTGCQ-GGMVBWMJA-URQG ORAL Take by mouth. peg 3350-Electrolytes (GOLYTELY) [...] entered by the nurse and reviewed by il Nursing Notes: Julieta Avendano RN 05/23/2022 2:10 [...] completed. Katheryn Stokes MD documented in this encounterSelect Medical [facility] [place]01-12-2023 Instructions* Patient Instructions* Katheryn Stokes MD - [...] If you do not have a responsible hi low truck driver (family member or friend) with [...] until midnight. 2 04/2019 documented in this encounterSelect Medical Specialty [facility] [place]01-12-2023 Nurse Note* Julieta Avendano RN - 05/23/2022 [...] 2017 Julieta Avendano RN documented in this encounterSelect Medical Specialty [facility] [place]01-12-2023 Miscellaneous Notes* Telephone Encounter - Tamanna Cordova Ma - 05/23/2022 12:23 PM EST Patient notified at appointment. * Telephone Encounter - Tamanna Cordova Ma - 05/23/2022 12:22 PM EST ----- Message from Minerva Shaver MD sent at 05/23/2022 8:06 AM EST ----- Urine culture does not have any growth Regards, Minerva Shaver MD documented in this encounterSelect Medical Specialty [facility] [place]01-11-2023 Instructions* Patient Instructions* Dianna Ballard APRN.CNP - 05/22/2022 1:39 PM EST Restart omeprazole documented in this encounterSelect Medical Specialty [facility] [place]01-11-2023 History of Present illness Narrative* Dianna Ballard [...] left Dr. Manuel Hoover - Dr. Alessio Welch PAST SURGICAL HISTORY OF NECK SURGERY, anterior [...] YRS/> REDUCIBLE 07/17/2010 Hernia repair, umbilical >5yr [facility] Dr Manuel Hoovre ALLERGIES Cardizem [Diltiazem Hcl], Codeine, Entex [Phenylephrine-Guaifenesin], [...] 1,000 mg by mouth five times daily. IZHYTLK-KBWZUUKZB-OQRV ORAL Take by mouth. FAMILY HISTORY Problem [...] plan. Dianna Ballard APRN.CNP documented in this encounterSelect Medical Specialty [facility] [place]01-10-2023 Miscellaneous Notes* Telephone Encounter - Hodan Stevens APRN.CNP - 05/21/2022 1:06 PM EST Agree with keeping follow up tomorrow and seeing Dr. Stokes this week. If symptoms worsening priorto the appointment then needs to be seen/evaluated in ER. * Telephone Encounter - Asha Ortiz RN - 05/21/2022 9:26 AM EST [...] needs urgently evaluated. Thank you Dianna Ballard APRN.ANITHA * Telephone Encounter - Felicitas Prince LPN [...] you Dianna Ballard APRN.CNP documented in this encounterSelect Medical [facility] [place]01-06-2023 Miscellaneous Notes* Telephone Encounter - Tamanna Cordova [...] not felt right. Had surgery up in [place]. Patient is really wanting to go back to work. 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 Please review and advise documented in this encounterSelect Medical Specialty [facility] [place]01-04-2023 Instructions* Patient Instructions* Dianna Ballard APRN.CNP - 05/15/2022 11:57 AM EST Call cardiology for follow up. documented in this encounterSelect Medical Specialty [facility] [place]01-04-2023 History of Present illness Narrative* Dianna Ballard [...] Last visit was with different internal Medicine WORSHIP LEADER after ER visit. Patient with history of [...] left Dr. Manuel Hoover - Dr. Alessio Welch PAST SURGICAL HISTORY OF NECK SURGERY, anterior [...] YRS/> REDUCIBLE 07/17/2010 Hernia repair, umbilical >5yr [facility] Dr Manuel Hoover ALLERGIES Cardizem [Diltiazem [...] 1,000 mg by mouth five times daily. [id number] ORAL Take by mouth. FAMILY HISTORY Problem [...] labs and imaging results. Outside chart from [facility] reviewed. ASSESSMENT/PLAN: 1. Shortness of breath - [...] with more than 50% of the total zqkv-st-nmmv time of the visit in counseling / coordination of care. documented in this encounterSelect Medical [facility]ty [facility] [place]12-28-2022 Miscellaneous Notes* Telephone Encounter - Dianna Ballard [...] you Dianna Ballard APRN.CNP documented in this encounterSelect Medical Specialty [facility] [place]12-21-2022 Miscellaneous Notes* Telephone Encounter - Veronica Villar LPN - 05/01/2022 2:13 PM EST Brianda with Dr. Rider's office at [facility] called for referral and supporting papers faxed to [phone]. Identified pt with name and date of .. Done. Veronica Villar LPN documented in this encounterSelect Medical Specialty [facility] [place]12-20-2022 Miscellaneous Notes* Telephone Encounter - Edwige Curtis LPN - 04/30/2022 3:44 PM EST PATIENT NOTIFIED OF SAME. Order for US has been faxed to [facility] scheduling office. Recent labs and office note faxed to Dr. Rider's office. Patient had yet to hear from this office about an appointment. Did encourage patient to call his office to schedule a follow up. Barium swallow is scheduled for 05/14/22 at [facility] as that is the soonest available. * [...] numbers came back elevated. documented in this encounterSelect Medical Specialty [facility] [place]12-19-2022 History of Present illness Narrative* Hodan Stevens APRN.ANITHA - 04/29/2022 2:14 PM EST SUBJECTIVE Elizabeth [...] rate on 04/27/2022. She was seen at [facility] and those records are available for review today and were reviewed with thisvisit. She had been seen on 04/26 for a virtual visit with another internal medicine provider and then seen in [facility] on 04/27 and advised to [...] 1,000 mg by mouth five times daily. [id number] ORAL Take by mouth. estradiol (ESTRACE) 0.01 [...] Murmur - 12/24/2021 Chf (Congestive Heart Failure) (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 Her hands hurt her pretty good. Panlobular Emphysema ([facility]) - 04/28/2015 Atrial Fibrillation ([facility]) - 08/19/2014 Comment: afib 2012. Had [...] on the CT of chest done at [facility]. We will have her schedule for [...] appointment.. Hodan Stevens APRN-ANITHA documented in this encounterSelect Medical Specialty [facility] [place]12-17-2022 History of Present illness Narrative* Tamica Carson APRN.CNP - 04/27/2022 12:12 PM EST Called to triage patient by [facility] staff Patient presents with complaints of abdominal pain with distention. +trouble breathing Patient had mid abdominal TTP, Slight distention noted Discussed that additional imaging is needed, that is not available. Referred to ED Amicable documented in this encounterSelect Medical [facility]ty [facility] [place]12-09-2022 Miscellaneous Notes* Telephone Encounter - Tamanna Cordova Ma - 04/19/2022 3:48 PM EST Patient notified. * Telephone Encounter - Tamanna Cordova Ma - 04/19/2022 3:48 PM EST ----- Message from Minerva Shaver MD sent at 04/19/2022 1:43 PM EST ----- Chest xr is normal. documented in this encounterSelect Medical Specialty [facility] [place]12-08-2022 History of Present illness Narrative* Alanna Dotson [...] IV DATA: Not applicable SIGNED BY: RT Lion(Nidia) April 18, 2022 11:38 AM documented in this encounterSelect Medical Specialty [facility] [place]11-11-2022 Miscellaneous Notes* Telephone Encounter - Tamanna Cordova Ma - 03/22/2022 11:07 AM EST Patient notified. * Telephone Encounter - Dianna Ballard APRN.CNP - 03/22/2022 8:43 AM EST I sent in an updated FMLA form for her to return on 03/25 already, but will print a letter as well.Please notify patient this is ready for turkey picker. Thank you Dianna Ballard APRN.CNP * Telephone Encounter - Veronica Villar LPN - 03/22/2022 8:35 AM EST Pt called and states she is ready to return to work on Friday03-25-22. Pt requesting a letter thatshe can return to work without restrictions 03-25-22. Please call when this is ready and her sisterwill turkey picker for her. Veronica Villar LPN documented in this encounterSelect Medical Specialty [facility] [place]11-09-2022 Miscellaneous Notes* Telephone Encounter - Tamanna Cordova [...] Dianna Ballard APRN.CNP * Telephone Encounter - Asha Ortiz RN - 03/20/2022 1:58 PM EST [employer] called and is notified of providers message. They voice understanding and reports they will send the message to a contract management specialist. Asha Ortiz RN * Telephone Encounter - Minerva Shaver MD - 03/20/2022 12:52 PM EST Elizabeth was working with the orthopedist for her FMLA, So I am not sure this message is for me But, that being said, yes I think she should be on leave. Regards, Minerva Shaver MD * Telephone Encounter - Asha Ortiz RN - 03/20/2022 9:05 AM EST Edwardo from [facility] called in wanting to know if the provider had endorsed the Pt being off work. He wasasking with what restrictions and when did they advise them to have off. The claim # is [id number]. Please call and advise. documented in this encounterSelect Medical Specialty [facility] [place]11-07-2022 History of Present illness Narrative* Dianna Ballard, ANG - 03/18/2022 2:05 PM EST CC: Patient [...] left Dr. Manuel Hoover - Dr. Alessio Welch PAST SURGICAL HISTORY OF NECK SURGERY, anterior [...] YRS/> REDUCIBLE 07/17/2010 Hernia repair, umbilical >5yr [facility] Dr Manuel Hoover ALLERGIES Cardizem [Diltiazem [...] 1,000 mg by mouth five times daily. [id number] ORAL Take by mouth. FAMILY HISTORY Problem [...] plan. Dianna Ballard APRN.CNP documented in this encounterSelect Medical Specialty [facility] [place]10-28-2022 Instructions* Patient Instructions* Dianna Ballard APRN.CNP - 03/08/2022 11:34 AM EDT Take omeprazole first thing in the morning 1/2 to 1 hour prior to any other medication. Take antibiotics with food. Can use Tums for any heart burn as directed. documented in this encounterSelect Medical Specialty [facility] [place]10-28-2022 History of Present illness Narrative* Dianna Ballard [...] left Dr. Manuel Hoover - Dr. Alessio Welch PAST SURGICAL HISTORY OF NECK SURGERY, anterior [...] YRS/> REDUCIBLE 07/17/2010 Hernia repair, umbilical >5yr [facility] Dr Manuel Hoover ALLERGIES Cardizem [Diltiazem [...] 1,000 mg by mouth five times daily. [id number]-HVMC ORAL Take by mouth. FAMILY HISTORY Problem [...] plan. Dianna Ballard APRN.CNP documented in this encounterSelect Medical Specialty [facility] [place]10-17-2022 Miscellaneous Notes* Telephone Encounter - Alexandra Leonard - 02/25/2022 3:16 PM EDT Patient saw result via my chart. Alexandra Leonard * Telephone Encounter - Alexandra Leonard - 02/25/2022 3:16 PM EDT ----- Message from Minerva Shaver MD sent at 02/25/2022 9:40 AM EDT ----- Please let patient know, her covid and flu, were negative Regards, Minerva Shaver MD documented in this encounterSelect Medical Specialty [facility] [place]10-14-2022 History of Present illness Narrative* Minerva Shaver [...] left Dr. Manuel Hoover - Dr. Alessio Welch PAST SURGICAL HISTORY OF NECK SURGERY, anterior [...] YRS/> REDUCIBLE 07/17/2010 Hernia repair, umbilical >5yr [facility] Dr Manuel Hoover FAMILY HISTORY Problem [...] ORAL) CALCIUM CARBONATE/VITAMIN D3 (VITAMIN D-3 ORAL) [id number] ORAL Review of Systems CONSTITUTIONAL: No fevers, [...] RELEASE Minerva Shaver MD documented in this encounterSelect Medical Specialty [facility] [place]09-12-2022 History of Present illness Narrative* Minerva Shaver [...] left Dr. Manuel Hoover - Dr. Alessio Welch PAST SURGICAL HISTORY OF NECK SURGERY, anterior [...] YRS/> REDUCIBLE 07/17/2010 Hernia repair, umbilical >5yr [facility] Dr Manuel Hoover FAMILY HISTORY Problem [...] ORAL) CALCIUM CARBONATE/VITAMIN D3 (VITAMIN D-3 ORAL) [id number] ORAL Review of Systems CONSTITUTIONAL: No fevers, [...] RELEASE Minerva Shaver MD documented in this encounterSelect Medical [facility]ty [facility] [place]08-26-2022 Miscellaneous Notes* Telephone Encounter - Mavis Saunders [...] chills. Mavis Saunders MD documented in this encounterSelect Medical Specialty [facility] [place]08-26-2022 Miscellaneous Notes* Telephone Encounter - Acacia Fernandez [...] 04, 2022 11:34 AM documented in this encounterSelect Medical Specialty [facility] [place]08-19-2022 Miscellaneous Notes* Telephone Encounter - Tamica Rodriguez LPN - 12/28/2021 9:54 AM EDT Per Trinidad Soto, ANITHA she is okay to continue the probiotic. [...] 8:25 AM EDT Received holding instructions from [facility] for patients Eliquis. Per RENEE Quinn patient is okay to hold Eliquis 3 day prior to surgery. Copy of letter given fto Trinidad Soto CNP and original sent to squaring shear operator to scan. Tamica Rodriguez LPN documented in this encounterSelect Medical Specialty [facility] [place]08-18-2022 History of Present illness Narrative* Tamica Craven [...] 27, 2021 10:16 AM documented in this encounterSelect Medical Specialty [facility] [place]08-17-2022 Miscellaneous Notes* Telephone Encounter - Job Davis - 12/26/2021 4:10 PM EDT The patient is aware of the ultrasound appointment tomorrow at [facility]. * Telephone Encounter - Danna Maza - 12/26/2021 11:46 AM EDT LVM to call back to get her in touch with Dr. Pizarro documented in this encounterSelect Medical Specialty [facility] [place]08-15-2022 History of Present illness Narrative* Irma AdairSORAYA.BOLT SORTER - 12/24/2021 9:30 AM EDT This was a telephone visit, including two-way audio in lieu of an in-person visit. The patient provided verbal consent to participate in the telehealth visit. Patient's name and date of verified. DATE OF SERVICE: 12/24/2021 PROBLEM: Elizabteh Persaud presents for pre-op teaching. PRE-OP DIAGNOSIS: [...] patient have an advanced directive: No Does [facility] have a copy of the patient's advanced [...] prescribed by anesthesia, internal medicine, surgeon, or WORSHIP LEADER Stop NSAIDs, Aspirin (ASA), vitamins, herbal supplements, [...] jewelry, body piercing, makeup, contacts, lotions, nail bermudian on fingers, or anything in hair on arrival to surgery Wear low healed shoes and loose fitting clothing Leave all valuables at home or with a family member Directions to [facility] and [facility] Parking/parking validation on the day prior to [...] trial, UTI symptoms reviewed and patient instructed ermias HICKS of any of these symptoms. VAGINAL [...] patient, if after hours patientinstructed to call squaring shear operator and ask for vice president precision market insights hoop bender tank onc resident. Additional teaching as indicated by patient/family learning needs. PATIENT LEARNING EVALUATION & FOLLOW UP PLAN: Patient and/or family express understanding of upcoming surgery, pre-operative preparation, the operative process, and post-operative instructions. Follow up plan: Complete - No need for follow-up Patient has a post-op appointment scheduled: Yes, 02/04/22 Referral (recommentation): None Educator: Irma Adair APRN.CNP [facility] documented in this encounterSelect Medical Specialty Hospital [facility] [place]08-15-2022 History and physical note * Trinidad Soto [...] fevers. Neurological: No history of TIA's, stroke, LIBRARY CLERICAL ASSISTANT tumor, impaired sensorium, hemiplegia, paraplegia orquadraplegia. No neurological symptoms or problems. Respiratory: +former smoker 2ppd/30 years Positive for: COPD (no rx). Negative for: asthma, pneumonia within 6 weeks and tobacco use. Cardiovascular: Positive for: anticoagulation therapy (Eliquis, following [facility]), atrial fibrillation (controlled on rx), CHF (on rx), DVT/PE (LE, >30 years ago, tx with AC at the time) and hypertension (on rx) Negative for: arrhythmia, CAD, chest pain, congenital heart defect, hyperlipidemia, recent CT, murmur/valvular heart disease, open heart surgery and valve surgery. GI: Positive for: dysphagia (difficulty with pills) and GERD (on rx) Negative for: abdominal pain, hepatitis, irritable bowel syndrome, inflammatory bowel disease, liver disease, nausea, pancreatitis, vomiting and ETOH >2 drinks/day. : Positive for: nephrolithiasis (hx). Negative for: urinary incontinence, renal failure and urinary tract infection. WELLNESS NURSE RN: See HPI. Negative for: vaginal bleeding and [...] left Dr. Manule Hoover - Dr. Alessio Welch PAST SURGICAL HISTORY OF NECK SURGERY, anterior [...] YRS/> REDUCIBLE 07/17/2010 Hernia repair, umbilical >5yr [facility] Dr Manuel Hoover FAMILY HISTORY Problem [...] by mouth five times daily. Taking Yes [id number] ORAL Take by mouth. Taking Yes No [...] or any previous visit (from the past 71216 hour(s)). Assessment Atrial fibrillation (HCC) Assessment: hx cardioversions x2 and ablation, controlled on rx, daily Eliquis, following [facility], pt states had a cardiac [...] heart failure) (HCC) Assessment: on rx, following [facility], records requested Mueller Activity Status [...] large neck Non-male patient STOP-Bang Score: 3 [id number] Score: Age: 65-74 Sex: female CHF history: Yes Hypertension history: Yes Stroke/TIA/thromboembolism history: Yes Vascular disease history: No Diabetes history: No [id number] Score: 6 ARISCAT Score: Age: 51-80 Preoperative [...] and consent discussed: yes. Patient / Responsible Alliance Party agrees to proceed: yes Patient / Surrogate agrees to blood products: Yes Prepared for Surgery: optimally prepared for surgery, pending [see comment]. Labs Cardiac clearance and records requested from marker shipments office, AC letter faxed CONSULTS: Patient does [...] 8:25 AM PAGER/CONTACT #: documented in this encounterSelect Medical Specialty [facility] [place]08-15-2022 Instructions* Patient Instructions* Trinidad Soto APRN.CNP - 12/24/2021 8:24 AM EDT PATIENT PREOPERATIVE INSTRUCTIONS Qiana Pizarro MD has scheduled you for your procedure at this surgery center: [facility] Scheduling Office: [phone] --[phone] [place] [address]. Please read below carefully for your personalized [...] Procedures: - YOU MUST HAVE A RESPONSIBLE VICE PRESIDENT QUALITY TAKE YOU HOME. A OYSTER GRADER OR COACH BUILDER CANNOT BE MADE A RESPONSIBLE VICE PRESIDENT QUALITY. - We recommend that a responsible person [...] call the Friday before. Your surgeon s planner/scheduler will tell you what time to call the office. - If you have not reached the departmental planner/scheduler by 5 P.M., call [phone] after 5 P.M. the day before your surgery. Please be aware that emergency situations arise, which may delay or change your surgical time. If this happens, we will notify you as soon as possible and regret any inconvenience. If you already have an Advance Directive, please fax a copy to [phone] or email to for it to be [...] day. Trinidad Soto APRN.ANITHA documented in this encounterCleveland Ceiejy26-01-2424 Miscellaneous Notes* Telephone Encounter - Candida Williamson RN - 12/11/2021 3:54 PM EDT Letter written requesting cardiac clearance and anticoagulation recommendations sent to Dr. Ibarra'soffice at fax# below. Confirmation received. * Telephone Encounter - Asha Longo RN - 12/11/2021 2:37 PM EDT [...] days prior to her surgery. The patient's marker shipments's contact information is: Dr. Ibarra with [facility] Routing to Dr. Pizarro to advise. * Telephone Encounter - Tiff Christine - 12/11/2021 2:05 PM EDT Patient has appointment and needs forms to be cleared for surgery faxed to office of Dr. Ibarra [facility]. documented in this encounterSelect Medical [facility]ty [facility] [place]07-29-2022 History of Present illness Narrative* Qiana Pizarro [...] - Stage III / IV Cervix / [place] - Normal support POP-Q: Prolapse Noted: Yes [...] patient was offered a surgery/procedure at a [facility]. The surgeon/proceduralist and patient have discussed [...] symptoms (15% if incontinence procedure, 20% for kiana tissue repair, 5-15% if sacrocolpopexy), urinary retention [...] 100mg BID Miralax daiily Send prescriptions to [facility] on day of surgery Labs: H/H: [...] recommend least invasive approach with v aginal kiana tissue repair. Patient understands that there is [...] HCPs (not separately reported). documented in this encounterSelect Medical Specialty [facility] [place]06-08-2022 Miscellaneous Notes* Telephone Encounter - Tamanna Cordova Ma - 10/17/2021 8:25 AM EDT Letter printed and taken to Medical Records. * Telephone Encounter - OlgaL idia Lima RN - 10/15/2021 7:27 PM EDT [...] Lidia Lima RN * Telephone Encounter - Asha Ortzi RN - 10/15/2021 12:53 PM EDT Called and left a voicemail for the Patient to call back and ask for a nurse to receive the providers message. Asha Ortiz RN * Telephone Encounter - Dianna Ballard APRN.CNP - 10/15/2021 12:47 PM EDT I absolutely can, but when does she need the letter dated to start? With her appointment on 10/10 or earlier? Let her know once I have this information, I will fill it out and it will be in her mychart. Thank you Dianna Ballard APRN.ANITHA * Telephone Encounter - Asha Ortiz RN - 10/15/2021 11:32 AM EDT Pt called and is notified of providers message. Pt reports she wasn't suppose to go back to work until 10/17/21. Pt asking if provider could write letter for this date. Asha Ortiz RN * Telephone Encounter - Dianna Ballard APRN.CNP - 10/15/2021 11:09 AM EDT I have reviewed Dr. Hong note and put a letter in her chart, please let patient know this is completed and if pain does not improve I would recommend getting re-evaluated. Thank you Dianna Ballard APRN.ANITHA * Telephone Encounter - Felicitas Prince LPN - 10/15/2021 8:38 AM EDT Patient is needing a letter for today. She is having pain in her hip today and not able to go to work.Pt is requesting a letter be put in her my chart so that she may give to her employer. Felicitas Prince LPN documented in this encounterSelect Medical Specialty [facility] [place]05-13-2022 History of Present illness Narrative* Lindsay Zee [...] L1 SAB1 IAB0 Ectopic0 Multiple0 Live Births0 Telephone Operator Receptionist History LMP: Postmenopausal Age at Menarche: Age at First : Age at Menopause: Telephone Operator Receptionist History Comments: Sexual Activity: Never; Male; Tubal [...] left Dr. Manuel Hoover - Dr. Alessio Welch PAST SURGICAL HISTORY OF NECK SURGERY, anterior [...] YRS/> REDUCIBLE 07/17/2010 Hernia repair, umbilical >5yr [facility] Dr Manuel Hoover FAMILY HISTORY Problem [...] 1,000 mg by mouth five times daily. [id number] ORAL Take by mouth. No current facility-administered [...] external genitalia normal, normal Bartholin's glands, urethra, [place]'s glands, no vulvar lesions, normal appearing perineal [...] which included preparing to see the patient, [id number] patient care, completing clinical documentation, obtaining and/or reviewing separately obtained history, performing a medically appropriate examination and counseling and educating the patient/family/caregiver Lindsay Lee MD documented in this encounterSelect Medical Specialty [facility] [place]04-29-2022 Miscellaneous Notes* Telephone Encounter - Tamanna Cordova [...] you Dianna Ballard APRN.CNP documented in this encounterSelect Medical Specialty [facility] [place]12-22-2021 History of Present illness Narrative* Alanna Dotson RT(R) - 05/02/2021 9:30 AM EST Radiology [...] 02, 2021 9:21 AM documented in this encounterSelect Medical Specialty [facility] [place]09-07-2021 History of Present illness Narrative* Alanna Dotson [...] 16, 2021 3:55 PM documented in this encounterSelect Medical Specialty [facility] [place]01-25-2021 History of Present illness Narrative* Alanna DotsonRt)Jocelynn - 06/05/2020 5:20 PM EST Radiology Service [...] 05, 2020 5:18 PM documented in this encounterSelect Medical Specialty [facility] [place]07-13-2016 History of Past illness Narrative* Problem Noted [...] of this encounter (statuses as of 09/07/2021) [facility] [place] History of Past illness Narrative* Problem Noted [...] of this encounter (statuses as of 09/21/2021) [facility] [place] History of Past illness Narrative* Problem Noted [...] of this encounter (statuses as of 10/17/2021) [facility] [place] History of Past illness Narrative* Problem Noted [...] of this encounter (statuses as of 11/12/2021) [facility] [place] History of Past illness Narrative* Problem Noted [...] of this encounter (statuses as of 12/11/2021) [facility] [place] History of Past illness Narrative* Problem Noted [...] of this encounter (statuses as of 12/24/2021) [facility] [place] History of Past illness Narrative* Problem Noted [...] of this encounter (statuses as of 12/24/2021) [facility] [place] History of Past illness Narrative* Problem Noted [...] of this encounter (statuses as of 12/28/2021) [facility] [place] History of Past illness Narrative* Problem Noted [...] of this encounter (statuses as of 12/28/2021) [facility] [place] History of Past illness Narrative* Problem Noted [...] of this encounter (statuses as of 12/30/2021) [facility] [place] History of Past illness Narrative* Problem Noted [...] Tobacco use disorder 07/16/2006 01/10/2016 Overview: Quit -06 documented as of this encounter (statuses as of 01/04/2022) [facility] [place] History of Past illness Narrative* Problem Noted [...] of this encounter (statuses as of 01/04/2022) [facility] [place] History of Past illness Narrative* Problem Noted [...] of this encounter (statuses as of 01/21/2022) [facility] [place] History of Past illness Narrative* Problem Noted [...] of this encounter (statuses as of 02/06/2022) [facility]2016 History of Past illness Narrative* Problem Noted [...] of this encounter (statuses as of 02/22/2022) [facility] History of Past illness Narrative* Problem Noted [...] of this encounter (statuses as of 02/25/2022) [facility] History of Past illness Narrative* Problem Noted [...] of this encounter (statuses as of 03/08/2022) [facility] History of Past illness Narrative* Problem Noted [...] of this encounter (statuses as of 03/18/2022) [facility] History of Past illness Narrative* Problem Noted [...] of this encounter (statuses as of 03/20/2022) [facility] History of Past illness Narrative* Problem Noted [...] of this encounter (statuses as of 03/22/2022) [facility] History of Past illness Narrative* Problem Noted [...] of this encounter (statuses as of 04/19/2022) [facility] History of Past illness Narrative* Problem Noted [...] of this encounter (statuses as of 04/27/2022) [facility] History of Past illness Narrative* Problem Noted [...] of this encounter (statuses as of 04/29/2022) [facility] History of Past illness Narrative* Problem Noted [...] of this encounter (statuses as of 04/30/2022) [facility] History of Past illness Narrative* Problem Noted [...] of this encounter (statuses as of 05/01/2022) [facility] History of Past illness Narrative* Problem Noted [...] of this encounter (statuses as of 05/15/2022) [facility] History of Past illness Narrative* Problem Noted [...] of this encounter (statuses as of 05/17/2022) [facility] History of Past illness Narrative* Problem Noted [...] of this encounter (statuses as of 05/18/2022) [facility] History of Past illness Narrative* Problem Noted [...] of this encounter (statuses as of 05/21/2022) [facility] History of Past illness Narrative* Problem Noted [...] of this encounter (statuses as of 05/23/2022) [facility] History of Past illness Narrative* Problem Noted [...] of this encounter (statuses as of 05/23/2022) [facility] History of Past illness Narrative* Problem Noted [...] Tobacco use disorder 07/16/2006 01/10/2016 Overview: Quit -06 documented as of this encounter (statuses as of 05/23/2022) [facility] History of Past illness Narrative* Problem Noted [...] of this encounter (statuses as of 06/08/2022) [facility] History of Past illness Narrative* Problem Noted [...] of this encounter (statuses as of 06/08/2022) [facility] History of Past illness Narrative* Problem Noted [...] of this encounter (statuses as of 06/17/2022) [facility] History of Past illness Narrative* Problem Noted [...] of this encounter (statuses as of 06/19/2022) [facility] History of Past illness Narrative* Problem Noted [...] of this encounter (statuses as of 07/04/2022) [facility] History of Past illness Narrative* Problem Noted [...] of this encounter (statuses as of 07/08/2022) [facility] History of Past illness Narrative* Problem Noted [...] of this encounter (statuses as of 07/21/2022) [facility] History of Past illness Narrative* Problem Noted [...] of this encounter (statuses as of 07/25/2022) [facility] History of Past illness Narrative* Problem Noted [...] of this encounter (statuses as of 08/09/2022) [facility] History of Past illness Narrative* Problem Noted [...] of this encounter (statuses as of 08/30/2022) [facility] History of Past illness Narrative* Problem Noted [...] of this encounter (statuses as of 09/05/2022) [facility] History of Past illness Narrative* Problem Noted [...] of this encounter (statuses as of 10/15/2022) [facility] History of Past illness Narrative* Problem Noted [...] of this encounter (statuses as of 10/31/2022) [facility] History of Past illness Narrative* Problem Noted [...] of this encounter (statuses as of 12/13/2022) [facility] History of Past illness Narrative* Problem Noted [...] of this encounter (statuses as of 12/13/2022) [facility] History of Past illness Narrative* Problem Noted [...] of this encounter (statuses as of 12/27/2022) [facility] History of Past illness Narrative* Problem Noted [...] of this encounter (statuses as of 12/27/2022) [facility] History of Past illness Narrative* Problem Noted [...] of this encounter (statuses as of 12/31/2022) [facility] History of Past illness Narrative* Problem Noted [...] of this encounter (statuses as of 01/04/2023) [facility] History of Past illness Narrative* Problem Noted [...] of this encounter (statuses as of 01/17/2023) [facility] History of Past illness Narrative* Problem Noted [...] of this encounter (statuses as of 01/24/2023) [facility] History of Past illness Narrative* Problem Noted [...] or gangrene 07/25/2010 09/25/2015 ANXIETY GENERALIZED 08/31/2008 08/31/20 16 Pain in joint, shoulder region 06/22/2008 [...] of this encounter (statuses as of 01/27/2023) [facility] History of Past illness Narrative* Problem Noted [...] of this encounter (statuses as of 01/28/2023) [facility] History of Past illness Narrative* Problem Noted [...] of this encounter (statuses as of 01/28/2023) [facility] History of Past illness Narrative* Problem Noted [...] of this encounter (statuses as of 02/15/2023) [facility] History of Past illness Narrative* Problem Noted [...] Tobacco use disorder 07/16/2006 016 Overview: Quit -06 documented as of this encounter (statuses as of 02/23/2023) [facility] History of Past illness Narrative* Problem Noted [...] of this encounter (statuses as of 03/03/2023) [facility] History of Past illness Narrative* Problem Noted [...] of this encounter (statuses as of 03/04/2023) [facility] History of Past illness Narrative* Problem Noted Date Diagnosed Date Resolved Date Encounter for colonoscopy du e to history of adenomatous colonic polyps 11/22/2015 11/22/2015 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 11/22/2015 11/22/2015 Panlobular emphysema 04/28/2015 09/18/2 023 Last Assessment & Plan: Assessment: no [...] of this encounter (statuses as of 03/05/2023) [facility] History of Past illness Narrative* Problem Noted Date Diagnosed Date Resolved Date Encounter for colonoscopy du e to history of adenomatous colonic polyps 11/22/2015 11/22/2015 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 11/22/2015 11/22/2015 Panlobular emphysema 04/28/201501/27/2 023 Last Assessment & Plan: Assessment: no [...] of this encounter (statuses as of 03/06/2023) [facility] History of Past illness Narrative* Problem Noted [...] of this encounter (statuses as of 03/16/2023) [facility] History of Past illness Narrative* Problem Noted [...] of this encounter (statuses as of 03/16/2023) [facility] History of Past illness Narrative* Problem Noted [...] of this encounter (statuses as of 03/16/2023) [facility] History of Past illness Narrative* Problem Noted [...] Tobacco use disorder 07/16/2006 016 Overview: Quit - documented as of this encounter (statuses as of 03/16/2023) [facility] History of Past illness Narrative* Problem Noted [...] of this encounter (statuses as of 03/18/2023) [facility] History of Past illness Narrative* Problem Noted [...] of this encounter (statuses as of 03/24/2023) [facility] History of Past illness Narrative* Problem Noted [...] of this encounter (statuses as of 03/25/2023) [facility] History of Past illness Narrative* Problem Noted [...] of this encounter (statuses as of 04/01/2023) [facility] History of Past illness Narrative* Problem Noted [...] of this encounter (statuses as of 04/11/2023) [facility] History of Past illness Narrative* Problem Noted [...] of this encounter (statuses as of 05/02/2023) [facility] History of Past illness Narrative* Problem Noted [...] of this encounter (statuses as of 06/30/2023) [facility] History of Past illness Narrative* Problem Noted [...] of this encounter (statuses as of 07/14/2023) [facility] History of Past illness Narrative* Problem Noted [...] of this encounter (statuses as of 07/14/2023) [facility] History of Past illness Narrative* Problem Noted [...] of this encounter (statuses as of 08/04/2023) [facility] History of Past illness Narrative* Problem Noted [...] of this encounter (statuses as of 08/19/2023) [facility] History of Past illness Narrative* Problem Noted [...] of this encounter (statuses as of 08/20/2023) [facility] note Author Yudy Mota [facility] Note Date/Time October 25, 2024 8:10 am [facility] Medical Records Department [address] [place] [address] Anesthesia Postop Eval I 10/25/2409 MR#: [id number] Acct: [id number] Name: ELIZABETH PERSAUD Rep #:[id number] : 1945 79 From: Yudy Mota CRNA PCP: Dr. Minerva Shaver MD Status:REG S DC Y Race: C Location: [place] [address] Anesthesia: Postop Eval I Current Vital Signs Temperature: 97.3 F Pulse Rate: 90 Blood Pressure: 107/73 Respiratory Rate: 16 Pulse Ox: 92 Oxygen Delivery Method: Room Air Assessment Airway patent: Yes Spontaneous unlabored respirations: Yes Mental status: Awake nausea: No Vomiting: No Anesthesia Complication: No Fluid Hydration Crystalloid volume administer (ml): 300 Total IV fluid infused: 300 Progress Note Anesthesia document: Postop Eval 1 completed: Yes 10/25/2410 <Electronically signed by Yudy camacho CRNA> Date _ Yudy Mota CRNA Cosigner Signature: Date CC: ~ Signed [facility] Work Phone: Discharge summary Author Dr. Hall [facility] August 11, 2022 10:34am Note Date/Time August 11, 2022 10:2 9am [facility] Medical Records Department [address] [place] [address] Instructions for Home/Discharge Instructions 08/11/22 1027 MR#: [id number] Acct: [id number] Name: ELIZABETH PERSAUD Rep #:[id number] : 1945 77 From: Farhad Hall DO [...] Qty: 30 6RF Referrals / Follow Up: [facility] [Provider Group] - Within 1 Month [facility] [Provider Group] - Within 2 Weeks Minerva Shaver MD [Primary Care Provider] - Within 1 Week Disposition Disposition (needs filled in before D/C Order can be placed): Home, Self Care 08/11/22 1034<Electronically signed by Farhad Hall DO>Farhad Hall DO CC: Dr. Minerva Shaver MD ~ Signed [facility] Work Phone: Discharge summary Author Dr. Hall [facility] August 11, 2022 10:39am Note Date/Time August 11, 2022 10:3 9am [facility] Medical Records Department [address] [place] [address] Discharge Summary 08/11/22 1034 MR#: [id number] Acct: [id number] Name: ELIZABETH PERSAUD Rep #:[id number] : 1945 77 From: Frahad Hall DO PCP: Dr. Minerva Shaver MD Status:ADM I N Location: [place] [address] Providers Date of Admission: 08/08/22 Primary Care Physician: Dr. Minerva Sahver MD Reason For Visit: CVA Diagnosis Discharge [...] Qty: 30 6RF Referrals / Follow Up: [facility] [Provider Group] - Within 1 Month [facility] [Provider Group] - Within 2 Weeks Minerva Shaver MD [Primary Care Provider] - Within 1 Week Disposition Disposition (needs filled in before D/C Order can be placed): Home, Self Care Charges/Coding Visit Charges Inpatient E&M: 55231 Disch Hosp >30min 08/11/22 1039 <Electronically signed by Farhad Hall DO> Cosigner Signature (if applicable): CC: Dr. Minerva Shaver MD; Dr. Maxim Ibarra MD; Dr. Farhad Hall DO~ Signed [facility] Work Phone: Evaluation note* Diagnosis 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- Primary documented in this encounter [facility] note* Diagnosis Encounter for screening mammogram for breast cancer documented in this encounter [facility] note* Diagnosis Pre-operative examination- Primary Preoperative examination, [...] Hypertonicity of bladder documented in this encounter [facility] note* Diagnosis Educational circumstance- Primary 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 Cystocele, midline Rectocele Incomplete uterovaginal prolapse Uterovaginal prolapse, incomplete Preoperative examination Preoperative examination, unspecified Overactive bladder Hypertonicity of bladder [facility]* Diagnosis Onset Date Resolution Status Internal impingement of both shoulders acute Pain of right sternoclavicular joint acute Chronic diastolic (congestive) heart failure chronic Paroxysmal atrial fibrillation [facility] Work Phone: Evaluation note* Diagnosis 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 Cystocele, midline Rectocele Incomplete uterovaginal prolapse Uterovaginal prolapse, incomplete Preoperative examination Preoperative examination, unspecified Overactive bladder Hypertonicity of bladder 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 Cystocele, midline Rectocele Incomplete uterovaginal prolapse Uterovaginal prolapse, incomplete Preoperative examination Preoperative examination, unspecified Overactive bladder Hypertonicity of bladder documented in this encounter [facility] note* Diagnosis Incomplete uterovaginal prolapse- Primary Uterovaginal prolapse, incomplete Cystocele, midline 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 Rectocele Preoperative examination Preoperative examination, unspecified Overactive bladder Hypertonicity of bladder 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 Cystocele, midline Rectocele Incomplete uterovaginal prolapse Uterovaginal prolapse, incomplete Preoperative examination Preoperative examination, unspecified Overactive bladder Hypertonicity of bladder [facility]* Diagnosis Congestive heart failure, unspecified HF chronicity, unspecified heart failure type (HCC)- Primary Need for influenza vaccination Need for prophylactic vaccination and inoculation against influenza Frequency of urination Urinary frequency Primary hypertension Unspecified essential hypertension Generalized arthritis Urinary tract infection without hematuria, site unspecified [facility]* Diagnosis Sore throat- Primary Acute pharyngitis Chills with fever Fever, unspecified 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 Moses's esophagus [facility] Diagnosis Pneumonia due to infectious organism, unspecified laterality, unspecified part of lung- Primary Congestive heart failure, unspecified HF chronicity, unspecified heart failure type (HCC) Gastroesophageal reflux disease, unspecified whether esophagitis present documented in this encounter [facility] note* Diagnosis Onset Date Resolution Status Chronic diastolic (congestive) heart failure chronic Paroxysmal atrial fibrillation chronic Internal impingement of both shoulders acute Pain of right sternoclavicular joint acute SOB (shortness of breath) ac [place] URI (upper respiratory infection) acute [facility] Work Phone: Evaluation note* Diagnosis Pneumonia due to infectious organism, unspecified laterality, unspecified part of lung- Primary [facility]* Diagnosis Onset Date Resolution Status Internal impingement of both shoulders acute Pain of right sternoclavicular joint acute SOB (shortness of breath) ac [place] URI (upper respiratory infection) acute [facility] Work Phone: Evaluation note* Diagnosis Abdominal pain, unspecified abdominal location- Primary Difficulty breathing Other dyspnea and respiratory abnormality [facility] Diagnosis Hiatal hernia with GERD without esophagitis- Primary 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 Moses's esophagus Encounter for therapeutic drug monitoring Atrial fibrillation, unspecified type (HCC) [facility] Diagnosis Elevated LFTs- Primary Other abnormal blood chemistry [facility]* Diagnosis Shortness of breath- Primary Fever, unspecified fever cause Other fatigue Elevated liver enzymes Other nonspecific abnormal serum enzyme levels Decreased appetite Anorexia Foul smelling urine Other nonspecific finding on examination of urine Dysphagia, unspecified type Hiatal hernia with GERD without esophagitis 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 Moses's esophagus Bilateral lower extremity edema Edema [facility]* Diagnosis Fever, unspecified fever cause- Primary Hiatal hernia with GERD without esophagitis [facility] Diagnosis Epigastric pain- Primary Abdominal pain, epigastric Hiatal hernia with GERD without esophagitis Bowel habit changes Other symptoms involving digestive system Other fatigue Nausea Nausea alone Fever, unspecified fever cause [facility] this [facility] Diagnosis Personal history of colonic polyps- Primary Hiatal hernia with GERD without esophagitis Dysphagia, unspecified type Incisional hernia, without obstruction or gangrene Incisional hernia without mention of obstruction or gangrene [facility]* Diagnosis Abdominal pain, unspecified abdominal location- Primary Other fatigue Fever, unspecified fever cause Chills Chills (without fever) Vitamin B12 deficiency Other B-complex deficiencies Vitamin D deficiency Unspecified vitamin D deficiency documented in this encounter [facility] note* Diagnosis Congestive heart failure, unspecified HF chronicity, unspecified heart failure type (HCC)- Primary Atrial fibrillation, unspecified type (HCC) Primary hypertension Unspecified essential hypertension documented in this encounter [facility] note* Diagnosis Onset Date Resolution Status Internal impingement of both shoulders acute [facility] Work Phone: Evaluation note* Diagnosis Incisional hernia, without obstruction or gangrene- Primary Incisional hernia without mention of obstruction or gangrene Dysphagia, unspecified type Hiatal hernia with GERD without esophagitis Personal history of colonic polyps documented in this encounter [facility] note* Diagnosis PAD (peripheral artery disease) ([facility])- Primary Peripheral vascular disease, unspecified documented in this encounter [facility] note* Diagnosis Onset Date Resolution Status Internal impingement of both shoulders acute SOB (shortness of breath) [place] Chronic diastolic (congestive) heart failure chronic Paroxysmal atrial fibrillation chronic [facility] Work Phone: Evaluation note* Diagnosis Onset Date Resolution Status Internal impingement of both shoulders acute SOB (shortness of breath) [place] Chronic diastolic (congestive) heart failure chronic Paroxysmal atrial fibrillation chronic Acute stroke due to ischemia acute Bradycardia, sinus, persistent, severe acute Chronic diastolic (congestive) 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 [facility] Work Phone: Evaluation note* Diagnosis Onset Date Resolution Status Internal impingement of both shoulders acute SOB (shortness of breath) ac [place] Chronic diastolic (congestive) heart failure chronic Paroxysmal atrial fibrillation chronic Acute stroke due to ischemia acute Bradycardia, sinus, persistent, severe acute Left-sided weakness acute Chronic diastolic (congestive) heart failure chronic residential (current) use of anticoagulants [facility] Work Phone: Evaluation note* Diagnosis Cerebrovascular accident (CVA), unspecified mechanism (HCC)- Primary documented in this encounter [facility] note* Diagnosis Bradycardia- Primary Other specified cardiac dysrhythmias Acute non-recurrent maxillary sinusitis Congestive heart failure, unspecified HF chronicity, unspecified heart failure type (HCC) Atrial fibrillation, unspecified type (HCC) Panlobular emphysema (HCC) Other emphysema 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 Moses's esophagus [facility] Onset Date Resolution Status Internal impingement of both shoulders acute SOB (shortness of breath) ac [place] Paroxysmal atrial fibrillation chronic Bradycardia, sinus, persistent, severe resolved Left-sided weakness resolved 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 Paroxysmal atrial fibrillation chronic [facility] Work Phone: Evaluation note* Diagnosis Peripheral arterial disease (HCC)- Primary Peripheral vascular disease, unspecified [facility]* Diagnosis Lumbar spondylosis- Primary Lumbosacral spondylosis without myelopathy TIA (transient ischemic attack) Unspecified transient cerebral ischemia documented in this encounter [facility] note* Diagnosis TIA (transient ischemic attack) Unspecified transient cerebral ischemia documented in this encounter [facility] note* Diagnosis Peripheral arterial disease (HCC)- Primary Peripheral vascular disease, unspecified [facility]* Diagnosis Atrial fibrillation, unspecified type (HCC)- Primary Generalized arthritis Primary hypertension Unspecified essential hypertension Congestive heart failure, unspecified HF chronicity, unspecified heart failure type (HCC) [facility]* Diagnosis Onset Date Resolution Status Bradycardia, sinus, persistent, severe resolved Left-sided weakness resolved 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 Paroxysmal atrial fibrillation chronic Internal impingement of both shoulders acute Tear of left rotator cuff ac [place] 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 Paroxysmal atrial fibrillation [facility] Work Phone: Evaluation note* Diagnosis Fever, unspecified fever cause- Primary Cough, unspecified type Wheezing Sore throat Acute pharyngitis Bilateral lower extremity edema Edema Congestive heart failure, unspecified HF chronicity, unspecified heart failure type (HCC) [facility]* Diagnosis Left lower quadrant abdominal pain- Primary Right lower quadrant abdominal tenderness without rebound tenderness Bowel habit changes Other symptoms involving digestive system Blood in stool [facility]* Diagnosis Right lower quadrant abdominal pain- Primary Abdominal pain, right lower quadrant Left lower quadrant abdominal pain Blood in stool Bowel habit changes Other symptoms involving digestive system Stool mucus Nonspecific abnormal finding in stool contents Dark stools Nonspecific abnormal finding in stool contents [facility]* Diagnosis Onset Date Resolution Status Internal impingement of both shoulders acute Tear of left rotator cuff ac [place] 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 Paroxysmal atrial fibrillation chronic Acute respiratory failure with hypoxia acute GALINA (acute kidney injury) ac [place] Bilateral lower extremity edema acute Elevated brain natriuretic peptide (BNP) level acute Acute exacerbation of CHF (congestive heart failure) [facility] Work Phone: Evaluation note* Diagnosis History of recent hospitalization- Primary Personal history of unspecified disease Congestive heart failure, unspecified HF chronicity, unspecified heart failure type (HCC) Pneumonia due to infectious organism, unspecified laterality, unspecified part of lung Chronic obstructive pulmonary disease, unspecified COPD type ([facility]) Function kidney decreased Unspecified disorder of kidney and ureter C. difficile diarrhea Intestinal infection due to clostridium difficile On home oxygen therapy Dependence on supplemental oxygen documented in this encounter [facility] note* Diagnosis Pneumonia due to infectious organism, unspecified laterality, unspecified part of lung- Primary Atrial fibrillation, unspecified type (HCC) Abnormal EKG Nonspecific abnormal electrocardiogram (ECG) (EKG) Congestive heart failure, unspecified HF chronicity, unspecified heart failure type (HCC) documented in this encounter [facility] note* Diagnosis SOB (shortness of breath) Shortness of breath documented in this encounter [facility] note* Diagnosis Stage 3 severe COPD by GOLD classification ([facility])- Primary Acute bronchitis, unspecified organism Former cigarette smoker Personal history of tobacco use, presenting hazards to health Paroxysmal atrial fibrillation (HCC) Atrial fibrillation documented in this encounter [facility] note* Diagnosis Atrial fibrillation, unspecified type [...] Fall, initial encounter documented in this encounter [facility] note* Diagnosis Onset Date Resolution Status 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 Paroxysmal atrial fibrillation chronic Acute exacerbation of CHF (congestive heart failure) resolved Acute respiratory failure with hypoxia resolved GALINA (acute kidney injury) re solved Bilateral lower extremity edema resolved Elevated brain natriuretic peptide (BNP) level resolved [facility] Work Phone: Evaluation note* Diagnosis Primary hypertension- Primary Unspecified essential hypertension Chronic congestive heart failure, unspecified heart failure type (HCC) Chronic obstructive pulmonary disease, unspecified COPD type (HCC) Paroxysmal atrial fibrillation (HCC) Atrial fibrillation Encounter for immunization Need for other specified prophylactic vaccination against single bacterial disease documented in this encounter [facility] note* Diagnosis Paroxysmal atrial fibrillation (HCC)- Primary Atrial fibrillation Chronic obstructive pulmonary disease with acute exacerbation (HCC) Obstructive chronic bronchitis with exacerbation History of Clostridium difficile colitis Personal history of other diseases of digestive system Chronic congestive heart failure, unspecified heart failure type (HCC) [facility]* Diagnosis Generalized arthritis documented in this encounter [facility] note* Diagnosis Chronic obstructive pulmonary disease, unspecified COPD type (HCC)- Primary Generalized arthritis documented in this encounter [facility] note* Diagnosis Hiatal hernia with GERD without esophagitis Personal history of colonic polyps documented in this encounter [facility] note* Diagnosis Left lower quadrant abdominal pain Right lower quadrant abdominal tenderness without rebound tenderness Bowel habit changes Other symptoms involving digestive system Blood in stool documented in this encounter [facility] note* Diagnosis COVID-19 virus infection- Primary documented in this encounter [facility] note* Diagnosis Acute non-recurrent sinusitis, unspecified location- Primary documented in this encounter [facility] note* Diagnosis Onset Date Resolution Status Acute exacerbation of CHF (congestive heart failure) resolved Acute respiratory failure with hypoxia resolved GALINA (acute kidney injury) re solved Bilateral lower extremity edema resolved Elevated brain natriuretic peptide (BNP) level resolved 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 Chronic diastolic (congestive) heart failure chronic Paroxysmal atrial fibrillation chronic Fatigue resolved [facility] Work Phone: Evaluation noteNo assessment information available [facility] Work Phone: Evaluation note* Diagnosis Chronic congestive heart failure, unspecified heart failure type (HCC)- Primary Paroxysmal atrial fibrillation (HCC) Atrial fibrillation Primary hypertension Unspecified essential hypertension History of CVA (cerebrovascular accident) Transient ischemic attack (TIA), and cerebral infarction without residual deficits Thrush Candidiasis of mouth [facility] Diagnosis Generalized arthritis [facility]* Diagnosis 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- Primary Moses's esophagus Dysphagia, unspecified type documented [facility] this [facility]* Diagnosis Onset Date Resolution Status Hamstring muscle strain acut e Left hip pain acute 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 Chronic diastolic (congestive) heart failure chronic Paroxysmal atrial fibrillation chronic Fatigue resolved Osteoarthritis of right hip acute Right hip pain acute [facility] Work Phone: Evaluation note* Diagnosis Dysphagia, unspecified type- Primary documented in this [facility]* [...] for lipoid disorders documented [facility] this [facility]* Diagnosis Moderate COPD (chronic obstructive pulmonary disease) (HCC) Chronic airway obstruction, not elsewhere classified [facility]* Diagnosis COPD, mild (HCC)- Primary Chronic airway obstruction, not elsewhere classified Former cigarette smoker Personal history of tobacco use, presenting hazards to health [facility]* Diagnosis Chronic atrial fibrillation (HCC)- Primary [...] bronchitis with exacerbation [facility]* Diagnosis Chronic atrial fibrillation (HCC)- Primary Atrial fibrillation Hospital discharge follow-up Other follow-up examination Annual physical exam- Primary Routine general medical examination at a [facility] facility Chronic atrial fibrillation (HCC) Atrial fibrillation [...] unspecified type Wheezing documented in this encounter [facility] note* Diagnosis Chronic atrial fibrillation (HCC)- Primary Atrial fibrillation Hospital discharge follow-up Other follow-up examination Annual physical exam- Primary Routine general medical examination at a [facility] Chronic atrial fibrillation (HCC) Atrial fibrillation [...] of right shoulder [facility]* Diagnosis Chronic atrial fibrillation (HCC)- Primary [...] unspecified back location documented in this encounter [facility] note* Diagnosis Chronic atrial fibrillation (HCC)- Primary [...] Shortness of breath documented in this encounter [facility] note* Diagnosis Chronic atrial fibrillation (HCC)- Primary Atrial fibrillation Hospital discharge follow-up Other follow-up examination Annual physical exam- Primary Routine general medical examination at a [facility] Chronic atrial fibrillation (HCC) [...] to infectious organism documented in this encounter [facility] note* Diagnosis Chronic atrial fibrillation (HCC)- Primary [...] part of lung documented in this encounter [facility] note* Diagnosis Chronic atrial fibrillation (HCC)- Primary Atrial fibrillation Hospital discharge follow-up Other follow-up examination Annual physical exam- Primary Routine general medical examination [facility] a [facility] Chronic atrial fibrillation (HCC) Atrial fibrillation [...] failure type (HCC) documented [facility] Diagnosis Chronic atrial fibrillation (HCC)- Primary [...] failure type (HCC) [facility]* Diagnosis Chronic atrial fibrillation (HCC)- Primary [...] failure type (HCC) [facility]* Diagnosis Chronic atrial fibrillation (HCC)- Primary [...] osteoarthrosis, unspecified site [facility] Diagnosis Persistent atrial fibrillation Atrial fibrillation [...] fibrillation Atrial fibrillation [facility] Persistent atrial fibrillation Atrial fibrillation [facility] Diagnosis Persistent atrial fibrillation Atrial fibrillation Persistent atrial fibrillation Atrial fibrillation [facility] Diagnosis Chronic atrial fibrillation (HCC)- Primary [...] hazards to health [facility]* Diagnosis Chronic atrial fibrillation (HCC)- Primary Atrial fibrillation Hospital discharge follow-up Other follow-up examination Annual physical exam- Primary Routine general medical examination at a [facility] Chronic atrial fibrillation (HCC) [...] hazards to health documented in this encounter [facility] note* Diagnosis Chronic atrial fibrillation (HCC)- Primary [...] Acute cough- Primary documented in this encounter [facility] note* Diagnosis Chronic atrial fibrillation (HCC)- Primary [...] to infectious organism [facility] Diagnosis Chronic atrial fibrillation (HCC)- Primary [...] hazards to health documented [facility] this [facility]* Diagnosis Chronic atrial fibrillation (HCC)- Primary Atrial fibrillation Hospital discharge follow-up Other follow-up examination Annual physical exam- Primary Routine general medical examination at a [facility] Chronic atrial fibrillation (HCC) [...] infectious organism- Primary [facility]* Diagnosis Chronic atrial fibrillation (HCC)- Primary [...] to infectious organism documented [facility] Diagnosis Chronic atrial fibrillation (HCC)- Primary [...] infectious organism- Primary documented [facility]* Diagnosis Chronic atrial fibrillation (HCC)- Primary Atrial fibrillation Hospital discharge follow-up Other follow-up examination Annual physical exam- Primary Routine general medical examination [facility] Chronic atrial fibrillation (HCC) Atrial fibrillation [...] Neck pain Cervicalgia documented [facility] this [facility]* Diagnosis Chronic atrial fibrillation (HCC)- Primary [...] of other medications [facility] Diagnosis Atrial fibrillation with RVR- Primary Atrial fibrillation Moderate COPD (chronic obstructive pulmonary disease) Chronic airway obstruction, not elsewhere classified Bradycardia Other specified cardiac dysrhythmias Bradycardia Other specified cardiac dysrhythmias [facility] Diagnosis Chronic atrial fibrillation (HCC)- Primary [...] Dyspnea, unspecified type [facility] Diagnosis Chronic atrial fibrillation (HCC)- Primary [...] HF chronicity, unspecified heart failure type (HCC) Edema of right lower extremity- Primary Edema Other fatigue Foul smelling urine Other nonspecific finding on examination of urine Depressive disorder Depressive disorder, not elsewhere classified Presence of cardiac pacemaker Cardiac pacemaker in situ documented [facility] Diagnosis Chronic atrial fibrillation (HCC)- Primary [...] HF chronicity, unspecified heart failure type (HCC) Urinary tract infection with hematuria, site unspecified- Primary Depressive disorder Depressive disorder, not elsewhere classified Other fatigue Congestive heart failure, unspecified HF chronicity, unspecified heart failure type (HCC) Primary hypertension Unspecified essential hypertension [facility] Diagnosis Chronic atrial fibrillation (HCC)- Primary [...] HF chronicity, unspecified heart failure type (HCC) Urinary tract infection with hematuria, site unspecified- Primary documented in this encounter [facility] note Author Dr. Hall [facility] August 08, 2022 6:17pm Note Date/Time August 08, 2022 6:[address] [facility] Medical Records Department [address] [place] [id number] H&P Exam - Hospitalist 08/08/22 1810 MR#: [id number] Acct: [id number] Name: HUNGELIZABETH L Rep #:[id number] : 1945 77 From: Farhad Hall DO PCP: Dr. Minerva Shaver MD Status:ADM I N Location: [address] 1 HPI - General General Date of [...] heart rate has improved into the 50s. [facility] Medical History Abnormal bruising Acute cholecystitis Arthritis [...] do you feel safe at home: Yes LLOYD DESAI Narrative Was have some dizziness with gaze. [...] % (Auto) 59.9, Lymph % (Auto) 28.7, Carbon % (Auto) 9.6, Eos % (Auto) 1.2, [...] therapy evaluations. Charges/Coding Visit Charges Inpatient E&M: 03944 Init Hosp L3 08/08/221816 <Electronically signed by Farhad Hall DO> Cosigner Signature (if applicable): CC: Dr. Minerva Shaver MD; Dr. Farhad Hall DO~ Signed [facility] Work Phone: History and physical note Author Stephanie Scales [facility] December 31, 2022 3:10am Note Date/Time December 31, 2022 2: 29am [facility] Medical Records Department [address] [place] [address] H&P Exam - Hospitalist 12/31/228 MR#: [id number] Acct: [id number] Name: ELIZABETH PERSAUD Rep #:[id number] : 1945 77 From: Stephanie Scales DO PCP: Dr. Minerva Shaver MD Status:ADM I N Location: [place] [id number] HPI - General General Date of Admission: 12/31/22 Date of Service: 12/31/22 Chief Complaint: Shortness of breath HPI Narrative ELIZABETH PERSAUD, is a 77 F who presented to the emergency department at [facility] with a chief complaint of shortness of [...] sinus rhythm with out QTc prolongation, normal OK interval, and no ST/T wave changes concerning for acute ischemia. [facility] Medical History Abnormal bruising Acute [...] History of DVT (deep vein thrombosis) Hypertension residential (current) use of anticoagulants Non-rheumatic tricuspid valve [...] (Auto) 71.3 H, Lymph % (Auto) 20.8, Carbon % (Auto) 6.4, Eos % (Auto) 0.7, [...] -Continue outpatient follow-up with Dr. Persaud at [facility] Chronic diastolic/right-sided heart failure -Previous echo as [...] -Full code Charges/Coding Visit Charges Inpatient E&M: 99032 Init Hosp L3 12/31/22 0310 <Electronically signed by Stephanie Scales DO> Cosigner Signature (if applicable): CC: Dr. Minerva Shaver MD; Dr. Stephanie Scales DO~ Signed [facility] Work Phone: Hospital Discharge instructions Additional Instructions Please continue all of your home medications as directed by your doctor and return to the ER should you have any further concerns or [facility] of [facility] Work Phone: Progress note Author Nagi Sharma [facility] Note Date/Time January 27, 2025 11:41am [facility] [address] [place] [address] OFFICE VISIT Date of Service: 01/27/25 MR#: [id number] Acct: [id number] Name: ELIZABETH PERSAUD Rep #: [id number] : 1945 Provider: DANYA Sharma Age/Sex: 79/F Location: [facility] Status: Signed HPI HPI History of Present Illness Details: ELIZABETH PERSAUD, is a 79 F who presents to the office for a cardiovascular follow up visit. She has a history of previous atrial fibrillation for which she was hospitalized and underwent a ARIS guided cardioversion.?Patient presented to her PCP in May 2022 with complaints of shortness of breath with minimal exertionand leg weakness. She states her heart rates have been in the 90s while working, and increases to 140 on her recumbent exercise bike. At some point herflecainide had gotten discontinued and she was placed [...] is scheduled to see vascular-Dr. Persaud at [facility] next week. She was seen in the Emergency Room on 12/31/2022 for shortness of breath. Per EMS report she was noted be 80% on room air and placed on CPAP therapy. She received IV Lasix. Her BNP, 394.7, was elevated and her troponin was normal. Her ECG showed sinus rhythm. She was admitted and treated for respiratory failure secondary to acuteon chronic congestive heart failure and suspected pneumonia. She underwent an echocardiogram on 12/31/2022 that showed ejection fraction of 60% and moderately enlarged left atrium. She was evaluated with EP at [facility] with plans to undergo ablation and Tikosyn therapy. Her flecainide was discontinued. She presented [facility] emergency department for worsening shortness of breath despite diuretic adjustment. She was [facility] to [facility] evaluation due to upcoming ablation procedure. She [...] Tikosyn. Her CT pulmonary vein study showed coronarycalcification and it was also recommended to aggressively treat secondary risk factors for coronary artery disease. She underwent pulsed field ablation and right atrium/TV?IVC isthmus ablation at [facility] on 04/22/2024. She [...] level has remained stable. 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 Is patient in pain?: No Allergies etodolac Allergy (Intermediate, Verified 01/27/25 11:04) Other diltiazem HCl (From Cardizem) Allergy (Verified 01/27/25 11:04) Swelling of face and neck naproxen Allergy (Verified 01/27/25 11:04) Swelling (whole body) prednisone Allergy (Verified 01/27/25 11:04) Other amiodarone Adverse Reaction (Severe, Verified 01/27/25 11:04) Severe dyspnea after taking PO Amiodarone adhesive Adverse Reaction (Verified 01/27/25 11:04) Rash albuterol Adverse Reaction (Verified 01/27/25 11:04) Other codeine Adverse Reaction (Verified 01/27/25 11:04) Vomiting hydrocodone bitartrate (From Vicodin) Adverse Reaction (Verified 01/27/25 11:04) Vomiting morphine Adverse Reaction (Verified 01/27/25 11:04) Vomiting Medications ?Medication ?Instructions ?Recorded ?Confirmed ?Type multivitamin with folic acid 400 1 tab PO DAILY supple ment 03/15/13 01/27/25 History mcg tablet cyclobenzaprine 10 mg tablet 10 mg PO HS PRN muscle sp asm 07/25/22 01/27/25 History fluticasone fur. 100 mcg-umeclid 1 ea inhalation QDAY 08/11/23 01/27/25 History 62.5 mcg-vilant 25 mcg inhalat.powder (Trelegy Ellipta) fluticasone propionate 50 2 spray intranasal QDAY PRN 08/11/23 01/27/25 History mcg/actuation nasal allergy symptoms spray,suspension melatonin 5 mg tablet 10 mg PO HS PRN insomnia 06/0401/27/25 History omeprazole 40 mg capsule,delayed 40 mg PO QDAY 4 01/27/25 History release spironolactone 25 mg tablet 25 mg PO DAILY #30 tabs 01/27/25 Rx calcium 333 mg-magnesium 133 mg-D3 1 tab PO DAILY 02/0201/27/25 History 1.67 mcg-zinc 5 mg tablet sucralfate 100 mg/mL oral 10 ml PO ACHS PRN stoma 04/1101/27/25 History suspension apixaban 5 mg tablet 5 mg PO BID #180 tabs 01/27/25 Rx gabapentin 100 mg capsule 100 mg PO TID 10/22/2401/27 History nystatin 100,000 unit/mL oral 1 ml PO .qid PRN thrush 10/22/24 01/27/25 History suspension empagliflozin 10 mg tablet 10 mg PO DAILY #90 tabs 01/27/25 Rx (Jardiance) coenzyme Q10 100 mg tablet 100 mg PO QDAY 01/27/25 History furosemide 20 mg tablet 20 mg PO QDAY #90 tabs 01/2701/27/25 Rx furosemide 40 mg tablet (Lasix) 40 mg PO QDAY 01/27/25 01/27/25 History metoprolol succinate 50 mg 50 mg PO BID #180 tabs 01/1001/27/25 Rx tablet,extended release 24 hr Ejection fraction %: 45 Have you fallen in the past year?: No Nurse's Note: Needs refills on metoprolol and lasix 20 mg tabs. [facility] Medical History Wears hearing aid Wears dentures Stroke/cerebrovascular accident [...] spine GERD (gastroesophageal reflux disease) Surgical History Status post carpal tunnel release Presence of permanent cardiac pacemaker Hx of atrioventricular node ablation Hx of [...] home: Yes ROS Const Const: Negative for fatigue or weakness Eyes Eyes: Negative for change in vision ENT ENT: Negative for dizziness or balance problems Cardio Chest Pain: No Palpitations: No Edema: Bilateral (intermittently) Resp Respiratory: Positive for SOB with activity; Negative for SOB at rest or SOB orthopnea\SOB lying down GI GI: Negative nausea or heartburn Musc Musc: Negative for balance problems Neuro Neuro: Positive for vertigo; Negative for dizziness, lightheadedness, near syncope, syncope or weakness Endo Endo: Negative for fatigue Cardiology Exam Const Appearance: cooperative, healthy appearing, [...] normal inspection of the chest, symmetric chest movement, Pacemaker/ICD Yes left pectoral incision and normal respiratory effort; Negative cough Auscultation: Bilateral: Clear to Auscultation Cardio Rate: regular rate Rhythm: regular rhythm Heart [...] Status: Chronic Comment: DCCV 2012, 2014, 11/02/18, 11/23/18; March 2024; April 2024; Plan: [id number] score: 5 (age, gender, CHF, DVT +2) Atrial fibrillation stage: 3D, status post ablation Ablation: July 2015, 04/2024 at [facility] 12 Lead EC07/27/2024- Sinus rhythm at 64 bpm, OK interval 138, Qtc 453, and QRS at 94 DCCV: 2012, 2014, October 2018, November 2018, March 2024 x 2 at [facility], April 2024 at [facility] Echocardiogram: 12/31/2022-EF: 60%, moderately enlarged left atrium, right atriumnot well-visualized Heart Rate Control: Metoprolol succinate 25mg PO daily Antiarrhythmic: Tikosyn 125 mcg p.o. twice daily Anticoagulation/CVA Protection: Eliquis 5 mg p.o. twice daily She acknowledges significant improvement in symptoms with sinus rhythm and recent procedure at [facility] in April 2024. She will continue Tikosyn as she continues with intermittent palpitations. She will continue Eliquis for CVA protection. (2) Chronic diastolic (congestive) heart failure: Status: Chronic Plan: Nonischemic cardiomyopathy with reduced EF: Echocardiogram 04/14/2024?EF: 40-45% at [facility], March 2024: EF- 45% at [facility], 12/31/2022-EF: 60% Twelve-lead EC04/19/2024?sinus rhythm with ectopy at a rate of 61 bpm, OK interval 146, QTc 435, and QRS 90 [place] [employer] Functional Class: II ACC/AHA stage: C Guideline Directed Medical Therapy: Jardiance 10 mg p.o. daily Lasix 60 mg p.o. daily Metoprolol succinate 25 mg p.o. daily Spironolactone 25 mg p.o. daily Her echocardiogram at [facility] showed reduced ejection at 45%. This was thought to be related to her atrial fibrillation. She will repeat echocardiogram to re- evaluate EF with sinus rhythm. She was asked to temporarily increase Lasix to 40 mg p.o. twice daily to assist with symptoms. 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 This was seen on her most recent MRA. Carotid duplex ultrasound from December 2023 showed bilateral, mild internal carotid artery stenosis. There is no comment/finding regarding aneurysm. She will continue current medical therapy and we will continue to monitor. (4) Presence of permanent cardiac pacemaker: Status: Acute Plan: Her pacemaker device site appears to be without signs of obvious infection. There is no redness, tenderness, or drainage. She does express concerns regarding swelling noted above pacemaker site. She states that she has undergone gone a chest x-ray and has upcoming ultrasound to help assess further. Her most recent device report shows no significant findings. We will see how she responds with diuretic adjustment as well. Patient's device appears to be functioning appropriately. We will continue to monitor this with routine/scheduled follow-ups. Medications: New furosemide 20 mg PO QDAY 90 tabs 3RF metoprolol succinate ER 50 mg PO BID 180 tabs 3RF Resumed apixaban 5 mg PO BID 180 tabs 3RF Plan Details Additional Comments: Thank you for allowing us to participate in the patients plan of care, if you have any questions please do not hesitate to call. Plan was reviewed with patient/family member along with red flag symptoms. Understanding was acknowledged. Questions were answered to apparent satisfaction. This note was generated using a voice recognition system and there may be incorrect words, spelling or punctuation that were not noted when reviewing the office note prior to saving. Portions of this documentation were copied and pasted from previous office visitnotes to provide a cohesive continuity of the history. The note has been reviewed, edited, and updated, as necessary. 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 Minerva Shaver MD ~ [facility] Work Phone: [employer] for referral (narrative)* Diagnostic Procedure Only (Routine) - Pending Review Specialty Diagnoses / Procedures Referred By Dimitri larios Referred To Contact BR IMAGING Diagnoses Encounter for screening mammogram for breast cancer Procedures CLARIBEL SCREENING SCREENING MAMMOGRAPHY BI 2-VIEW BREAST INC CAD Minerva Shaver MD [address] [place] [address] [facility] [address] [place] [address] Referral ID Status Reason Start Date Expiration Date Visits Requested Visits Authorized [id number] Pending Review Auto-Generat ed Referral 11/07/2021 12/07/2022 1 1 [facility] for referral (narrative)* Diagnostic Procedure Only (Routine) - Closed Specialty Diagnoses / Procedures Referred By Dimitri larios Referred To Contact US IMAGING Diagnoses 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 Cystocele, midline Rectocele Incomplete uterovaginal prolapse Preoperative examination Overactive bladder Procedures US FEMALE PELVIS TRANSVAG US TRANSVAGINAL PizraroQiana soto MD [address] [place] [address] Us Imaging Referral ID Status Reason Start Date Expiration Date V isits Requested Visits Authorized [id number] Closed Auto-Generate d Referral 12/04/2021 01/03/2023 1 1 [facility] for referral (narrative)* Diagnostic Procedure Only (Routine) - Pending Review Specialty Diagnoses / Procedures Referred By Contac t Referred To Contact XR IMAGING Diagnoses Hiatal hernia with GERD without esophagitis Procedures XR MODIFIED BARIUM SWALLOW W SPEECH THERAPY RADIOLOGIC EXAM SWALLOW FUNCTION CONTRAST STUDY Hodan Stevens APRN.CNP [address] [place] [address] [address] Referral ID Status Reason Start Date Expiration Date Visits Requested Visits Authorized [id number] Pending Review Auto-Generat ed Referral 2 05/29/2023 1 1 [facility] for referral (narrative)* Diagnostic Procedure Only (Routine) - Authorized Specialty Diagnoses / Procedures Referred By Alexandraac t Referred To Contact US IMAGING Diagnoses Elevated LFTs Procedures US ABD RT UPPER QUADRANT US ABDOMINAL REAL TIME W/IMAGE LIMITED Hodan Stevens APRN.CNP [address] [place] [address] Us Imaging Referral ID Status Reason Start Date Expiration Date Visits Requested Visits Authorized [id number] Authorized Auto-Generat ed Referral 2 05/30/2023 1 1 [facility] for referral (narrative)* Outpatient Procedure (Routine) - Authorized Specialty Diagnoses / Procedures Referred By Contac t Referred To Contact [facility] Diagnoses Peripheral arterial disease (HCC) Procedures PVR LEG W/EXC LIANA VAS LAB N-INVAS PHYSIOLOGIC STD LXTR ART COMPL BI Zuleyma Persaud D, DO [address] [place] [address] [facility] [place] [address] [place], [place] [id number] Referral ID Status Reason Start Date Expiration Date Visits Requested Visits Authorized [id number] Authorized Auto-Generat ed Referral 09/03/2022 09/03/2023 1 1 [facility] for referral (narrative)* Outpatient Procedure (Routine) - Closed Specialty Diagnoses / Procedures Referred By Contac t Referred To Contact [facility] Diagnoses SOB (shortness of breath) Procedures LUNG DIFFUSION CAPACITY (DLCO) DIFFUSING CAPACITY Laith Montes MD [address] [place] [address] [facility] [place] [id number] Referral ID Status Reason Start Date Expiration Date V isits Requested Visits Authorized [id number] Closed Auto-Generate d Referral 01/27/2023 02/26/2024 1 1 * Outpatient Procedure (Routine) - Closed Specialty Diagnoses / Procedures Referred By Contac t Referred To Contact [facility] Diagnoses SOB (shortness of breath) Procedures SPIROMETRY WITH DILATOR IF OBSTRUCTED BRNCDILAT RSPSE SPMTRY PRE&POST-BRNCDILAT ADMN Laith Montes MD [address] [place] [address] [facility] [place] [address] [place] [address] Referral ID Status Reason Start Date Expiration Date V isits Requested Visits Authorized [id number] Closed Auto-Generate d Referral 01/27/2023 05/11/2023 1 1 [facility] for referral (narrative)* Outpatient Procedure (Routine) - Closed Specialty Diagnoses / Procedures Referred By Contac t Referred To Contact [facility] Diagnoses Dysphagia, unspecified type Procedures EGD DIAGNOSTIC ESOPHAGOGASTRODUODENOSC OPY TRANSORAL DIAGNOSTIC Katheryn Stokes MD [address] [address] [facility] [place] [address] [place] [address] Referral ID Status Reason Start Date Expiration Date V isits Requested Visits Authorized [id number] Closed Auto-Generate d Referral 05/30/2023 05/30/2024 1 1 [facility] for referral (narrative)* Diagnostic Procedure Only (Routine) - Closed Specialty Diagnoses / Procedures Referred By Contac t Referred To Contact XR IMAGING Diagnoses Fall, initial encounter Acute pain of right shoulder Procedures XR SHOULDER [id number] AP/TRUE AP RIGHT RADEX SHOULDER COMPLETE MINIMUM 2 VIEWS Dianna Ballard APRN.CNP [address] [place] [address] [place] [address] Referral ID Status Reason Start Date Expiration Date V isits Requested Visits Authorized [id number] Closed Auto-Generate d Referral 01/23/2023 02/22/2024 1 1 [facility] for referral (narrative)* Diagnostic Procedure Only (Routine) - Closed Specialty Diagnoses / Procedures Referred By Contac t Referred To Contact XR IMAGING Diagnoses Fall, initial encounter Acute midline back pain, unspecified back location Procedures XR THORACIC GENERAL 3V AP/LAT/SWIMMERS RADEX SPINE THORACIC 3 VIEWS Dianna Ballard APRN.CNP [address] [place] [address] [place] [address] Referral ID Status Reason Start Date Expiration Date V isits Requested Visits Authorized [id number] Closed Auto-Generate d Referral 09/26/2022 10/26/2023 1 1 * Diagnostic Procedure Only (Routine) - Closed Specialty Diagnoses / Procedures Referred By Contac t Referred To Contact XR IMAGING Diagnoses Fall, initial encounter Acute midline back pain, unspecified back location Procedures XR LUMBAR GENERAL 3V AP/LAT/L5-S1 RADEX SPINE LUMBOSACRAL 2/3 VIEWS Dianna Ballard APRN.[facility] [address] [place] [address] [place] [address] Referral ID Status Reason Start Date Expiration Date V isits Requested Visits Authorized [id number] Closed Auto-Generate d Referral 09/26/2022 10/26/2023 1 1 * Diagnostic Procedure Only (Routine) - Closed Specialty Diagnoses / Procedures Referred By Contac t Referred To Contact XR IMAGING Diagnoses Fall, initial encounter Rib tenderness Procedures XR RIBS 2V AP/OBL LEFT RADEX RIBS UNILATERAL 2 VIEWS Dianna Ballard APRN.[facility]TER [address] [place] [address] [place] [address] Referral ID Status Reason Start Date Expiration Date V isits Requested Visits Authorized [id number] Closed Auto-Generate d Referral 09/26/2022 10/26/2023 1 1 [facility] for referral (narrative)* Diagnostic Procedure Only (Routine) - Closed Specialty Diagnoses / Procedures Referred By Contac t Referred To Contact XR IMAGING Diagnoses Contusion of right foot including toes, initial encounter Procedures XR FOOT GENERAL 3V AP/LAT/OBL RIGHT X-RAY FOOT MINIMUM 3 VIEWS Stephen Maradiaga MD [address] [place] [address] [place] [address] Referral ID Status Reason Start Date Expiration Date V isits Requested Visits Authorized [id number] Closed Auto-Generate d Referral 05/02/2021 06/01/2022 1 1 [facility] for referral (narrative)* Diagnostic Procedure Only (Routine) - Closed Specialty Diagnoses / Procedures Referred By Contac t Referred To Contact XR IMAGING Diagnoses Neck pain Procedures XR CERV OTHER 4V AP/LAT/OBL X-RAY NECK MINIMUM 4 VIEWS Minerva Shaver MD [address] [place] [address] [facility] [address] Referral ID Status Reason Start Date Expiration Date V isits Requested Visits Authorized [id number] Closed Auto-Generate d Referral 01/16/2021 02/15/2022 1 1 [facility] for referral (narrative)* Consultation (Routine) - New Request Specialty Diagnoses / Procedures Referred By Contac t Referred To Contact Cardiovascular Medicine Diagnoses High risk medication use Aracelis Pichardo APRN-[facility] [address] [place] [address] Referral ID Status Reason Start Date Expiration Date V isits Requested Visits Authorized [id number] New Request 04/14/2024 05/09/2025 1 1 * Adjunctive Therapy (Routine) - New Request Specialty Diagnoses / Procedures Referred By Contac t Referred To Contact Cardiac Rehabilitation Diagnoses Acute decompensated heart failure Congestive heart failure, unspecified HF chronicity, unspecified heart failure type Procedures OK OUTPATIENT CARDIAC REHAB W/CONT ECG MONITORING Shelly Noyola PA-C [address] [facility] [address] [place] [address] Referral ID Status Reason Start Date Expiration Date V isits Requested Visits Authorized [id number] New Request 04/14/2024 05/09/2025 1 1 * Consultation (Routine) - New Request Specialty Diagnoses / Procedures Referred By Contac t Referred To Contact Pharmacy Diagnoses Acute decompensated heart failure Sandi Roche APRN-[facility]TER [address] [address] Referral ID Status Reason Start Date Expiration Date V isits Requested Visits Authorized [id number] New Request 04/13/2024 05/08/2025 1 1 * Adjunctive Therapy (Routine) - New Request Specialty Diagnoses / Procedures Referred By Alexandraac t Referred To Contact Pharmacy Diagnoses Acute decompensated heart failure Sandi Roche APRN-CNP [address] [place] [phone] Referral ID Status Reason Start Date Expiration Date V isits Requested Visits Authorized [id number] New Request 04/13/2024 05/08/2025 1 1 * (Routine) Specialty Diagnoses / Procedures Referred By Alexandraac t Referred To Contact [facility] [address] [place] [address] Referral ID Status Reason Start Date Expiration Date Visits Re quested Visits Authorized * Unlisted Procedure Code (Routine) - New Request Specialty Diagnoses / Procedures Referred By Contac t Referred To Contact Procedures PLATELET MONITORING PER PROTOCOL Riac Schulz PA-C [address] [place] [address] Referral ID Status Reason Start Date Expiration Date V isits Requested Visits Authorized [id number] New Request 04/12/2024 05/07/2025 1 1 * Unlisted Procedure Code (Routine) - New Request Specialty Diagnoses / Procedures Referred By Contac t Referred To Contact Procedures LEFT VENTRICULAR SYSTOLIC FUNCTION (LVSF) ASSESSMENT Rica Schulz PA-C [address] [place] [address] Referral ID Status Reason Start Date Expiration Date V isits Requested Visits Authorized [id number] New Request 04/12/2024 05/07/2025 1 1 * Radiology (Routine) - New Request Specialty Diagnoses / Procedures Referred By Contac t Referred To Contact Procedures ECG Rica Schulz PA-C [address] [place] [address] Referral ID Status Reason Start Date Expiration Date V isits Requested Visits Authorized [id number] New Request 04/12/2024 05/07/2025 1 1 * Unlisted Procedure Code (Routine) - New Request Specialty Diagnoses / Procedures Referred By Dimitri larios Referred To Contact Procedures DVT/VTE RISK ASSESSMENT Rica Schulz PA-C [address] [place] [address] Referral ID Status Reason Start Date Expiration Date V isits Requested Visits Authorized [id number] New Request 04/12/2024 05/07/2025 1 1 * (Routine) Specialty Diagnoses / Procedures Referred By Dimitri larios Referred To Contact [facility] [address] [place] [address] Referral ID Status Reason Start Date Expiration Date Visits Re quested Visits [facility]No reason for referral information availableW[facility] Work Phone: Reason for visit Narrative* Outpatient Procedure (Routine) - Closed Specialty Diagnoses / Procedures Referred By Dimitri t Referred To Contact [facility] Diagnoses Dysphagia, unspecified type Procedures EGD DIAGNOSTIC ESOPHAGOGASTRODUODENOSC OPY TRANSORAL DIAGNOSTIC Katheyrn Stokes MD [address] [address] [facility] [place] [address] [place] [address] Referral ID Status Reason Start Date Expiration Date V isits Requested Visits Authorized [id number] Closed Auto-Generate d Referral 05/30/2023 05/30/2024 1 1 [facility] for visit Narrative* Diagnostic Procedure Only (Routine) - Closed Specialty Diagnoses / Procedures Referred By Contac t Referred To Contact XR IMAGING Diagnoses Fall, initial encounter Acute midline back pain, unspecified back location Procedures XR THORACIC GENERAL 3V AP/LAT/SWIMMERS RADEX SPINE THORACIC 3 VIEWS Dianna Ballard APRN.[facility]TER [address] [place] [address] [place] [address] Referral ID Status Reason Start Date Expiration Date V isits Requested Visits Authorized [id number] Closed Auto-Generate d Referral 09/26/2022 10/26/2023 1 1 [facility] for visit Narrative* Diagnostic Procedure Only (Routine) - Closed Specialty Diagnoses / Procedures Referred By Contac t Referred To Contact Radiology / [facility] Diagnoses Chest pain, unspecified type; Acute cough; Fever, unspecified fever cause; Pneumonia due to infectious organism, unspecified laterality, unspecified part of lung Procedures RADIOLOGIC EXAM CHEST 2 VIEWS XR CHEST Dianna Ballard APRN.[facility]TER [address] [place] [address] [facility] [address] [place] [address] Referral ID Status Reason Start Date Expiration Date Visits Re quested Visits Authorized [id number] Closed 03/15/2022 05/11/2022 1 1 [facility] for visit Narrative* Diagnostic Procedure Only (Routine) - Closed Specialty Diagnoses / Procedures Referred By Contac t Referred To Contact XR IMAGING Diagnoses Contusion of right foot including toes, initial encounter Procedures XR FOOT GENERAL 3V AP/LAT/OBL RIGHT X-RAY FOOT MINIMUM 3 VIEWS Stephen Maradiaga MD [address] [place] [address] [place] [address] Referral ID Status Reason Start Date Expiration Date V isits Requested Visits Authorized [id number] Closed Auto-Generate d Referral 05/02/2021 06/01/2022 1 1 [facility] for visit Narrative* Diagnostic Procedure Only (Routine) - Closed Specialty Diagnoses / Procedures Referred By Contac t Referred To Contact XR IMAGING Diagnoses Neck pain Procedures XR CERV OTHER 4V AP/LAT/OBL X-RAY NECK MINIMUM 4 VIEWS Minerva Shaver MD [address] [place] [address] [place] [address] Referral ID Status Reason Start Date Expiration Date V isits Requested Visits Authorized Closed Auto-Generate d Referral 01/16/2021 02/15/2022 1 1 [facility] for visit Narrative* Auth/Cert Specialty Diagnoses / Procedures Referred By Dimitri t Referred To Contact Diagnoses afib, shortness of breath Toña Persaud MD [address] [place] [address] [facility] [address] [place] [address] Referral ID Status Reason Start Date Expiration Date Visits Re quested Visits Authorized [id number] 1 1 [facility] for visit Narrative* Auth/Cert Specialty Diagnoses / Procedures Referred By Contac t Referred To Contact Diagnoses Persistent atrial fibrillation Persistent atrial fibrillation [I48.19] Procedures OK COMPRE EP EVAL ABLTJ ATR FIB PULM VEIN ISOLATION SCHED DRUG LOAD (15393) ABLATION SCHED INTERCARDIAC A-FIB TRANSEPTAL BY PULM VEIN ISOLATION W/EP EVAL (18884) SCHED DRUG LOAD (63854) Alli Hernandez MD [address] [facility] [address] [place] [address] [facility] [address] [place] [address] Referral ID Status Reason Start Date Expiration Date Visits Re quested Visits Authorized [id number] 1 1 [facility] for visit Narrative* Consult, Test, Treat (Routine) - Closed Specialty Diagnoses / Procedures Referred By Alexandraac t Referred To Contact Radiology / RADIO GENERAL [facility] Diagnoses Viral infection, unspecified xr chest rm 2 Procedures RADIOLOGIC EXAM CHEST 2 VIEWS XR CHEST Nadir Pickard PA-C [address] [facility] [address] [place] [address] Phone: tel: fax: Radiology [address] [place] [address] Phone: tel: fax: Referral ID Status Reason Start Date Expiration Date Visits Re quested Visits Authorized [id number] Closed 07/05/2024 05/11/2025 1 1 [facility] for visit Narrative* Auth/Cert Specialty Diagnoses / Procedures Referred By Contac t Referred To Contact Diagnoses PAF (paroxysmal atrial fibrillation) Anuel Cortes MD [address] [place] [address] Phone: tel: fax: [facility] [address] [place] [address] Referral ID Status Reason Start Date Expiration Date Visits Re quested Visits Authorized [id number] 1 1 [facility] Advance Directives No Advanced Directives Records FoundDocuments on File Type Date Recorded Patient Ventilated Rib Fitter Expl anation Advance Directive(s) 02/28/2016 12:15 PM Advance Directive(s) 02/21/2016 9:18 AM Advance Directive(s) 11/22/2015 12:01 PM Advance Directive(s) 11/10/2015 11:55 AM Documents on File Type Date Recorded Patient Ventilated Rib Fitter Expl anation Advance Directive(s) 02/28/2016 12:15 PM Advance Directive(s) 02/21/2016 9:18 AM Advance Directive(s) 11/22/2015 12:01 PM Advance Directive(s) 11/10/2015 11:55 AM Advance Directive Response Recorded Date/ Time Advance Directives No June 1:18pm Living Will No June 26 022 1:18pm Power of Authorization Representative No June 26, 2021 1:18pm Advance Directive Response Recorded Date/ Time Advance Directives No June 12:18pm Living Will No June 26, 2 022 12:18pm Power of Authorization Representative No June 26, 2021 12:18pm Advance Directive Response Recorded Date/ Time Advance Directives No June 12:18pm Living Will No April 27 2 022 2:22pm Power of Authorization Representative No April 27, 2022 2:22pm Advance Directive Response Recorded Date/ Time Advance Directives No June 1:18pm Living Will No April 27, 2 022 3:22pm Power of Authorization Representative No April 27, 2022 3:22pm Advance Directive Response Recorded Date/ Time Advance Directives No August 02, 2 023 8:04am Living Will No August 08, 2022 4:23pm Power of Authorization Representative No August 08 4:23pm Advance Directive Response Recorded Date/ Time Advance Directives No August 02, 2 023 8:04am Living Will No August 08, 2022 6:51pm Power of Authorization Representative No August 08 6:51pm Advance Directive Response Recorded Date/ Time Name of Medical Power of Authorization Representative Efraintcatarino Gerardeg e December 31, 2022 3:21am Advance Directives No August 02, 2 023 8:04am Living Will Yes December 31 3:21am Power of Authorization Representative Yes December 31, 2 023 3:21am Advance Directive Response Recorded Date/ Time Name of Medical Power of Authorization Representative Efraintcatarino Elizabetheg e December 31, 2022 2:21am Advance Directives No August 02, 2 023 7:04am Living Will Yes December 31 2:21am Power of Authorization Representative Yes December 31, 2 023 2:21am Advance Directive Response Recorded Date/ Time Advance Directives No August 02, 2 023 7:04am Living Will Yes December 31 2:21am Power of Authorization Representative Yes December 31, 2 023 2:21am Advance Directive Response Recorded Date/ Time Advance Directives on File Yes 2023 11:17am Name of Medical Power of Authorization Representative janis alrid ge July 04, 2023 11:17am Advance Directives Yes June 11:17am Living Will Yes July 04, 024 11:17am Power of Authorization Representative Yes July 04, 2023 11:17am Advance Directive Response Recorded Date/ Time Advance Directives on File Yes 2023 12:17pm Name of Medical Power of Authorization Representative janis alrid ge July 04, 2023 12:17pm Advance Directives Yes August 10 9:13am Living Will No September 05, 2023 5:23pm Power of Authorization Representative No September 04 5:23pm Date Activated Date Inactivated Comments 04/13/2024 12:27 AM Advance Directive Response Recorded Date/ Time Living Will No April 12 12:26pm Do you have a Healthcare Power of Authorization Representative? No April 12, 2024 12:26pm Living Will No May 26 12:20am Do you have a Healthcare Power of Authorization Representative? No May 26, 2024 12:20am Living Will No July 31, 2024 10:35pm Do you have a Healthcare Power of Authorization Representative? No July 31, 2024 10:35pm Advance Directives Yes January 11:43am Advance Directive Response Recorded Date/ Time Living Will No May 26 12:20am Do you have a Healthcare Power of Authorization Representative? No May 26, 2024 12:20am Living Will No July 31, 2024 10:35pm Do you have a Healthcare Power of Authorization Representative? No July 31, 2024 10:35pm Advance Directives Yes January 11:43am Advance Directive Response Recorded Date/ Time Living Will No July 31, 2024 10:35pm Do you have a Healthcare Power of Authorization Representative? No July 31, 2024 10:35pm Advance Directives Yes January 11:43am Advance Directive Response Recorded Date/ Time Living Will No July 31, 2024 10:35pm Do you have a Healthcare Power of Authorization Representative? No July 31, 2024 10:35pm Advance Directives No September 29 12:27pm Documents on File Type Date Recorded Patient Ventilated Rib Fitter Expl anation HealthCare Power of Authorization Representative 10/03/2024 2:49 PM HealthCare Power of Authorization Representative 08/10/2022 Advance Directives/Living Will 08/10/2022 Advance Directive Response Recorded Date/ Time Advance Directives on File No September 102024 12:27pm Living Will No September 29, 2024 1 2:27pm Do you have a Healthcare Power of Authorization Representative? No September 29, 2024 12:27pm Living Will No July 31, 2024 10:35pm Do you have a Healthcare Power of Authorization Representative? No July 31, 2024 10:35pm Advance Directives Yes January 11:43am Advance Directive Response Recorded Date/ Time Advance Directives on File No September 102024 12:27pm Living Will No September 29, 2024 1 2:27pm Do you have a Healthcare Pow er of Authorization Representative? No September 29, 2024 12:27pm Do you have a Healthcare Pow er of Authorization Representative? Yes October 22, 2024 10:36am Name of Medical Power of Authorization Representative ALEXANDR ULTRICH-GRANDDAUGHTER October 22, 2024 10:36am Living Will No July 31, 2024 10:35pm Do you have a Healthcare Pow er of Authorization Representative? No July 31, 2024 10:35pm Advance Directives Yes January 11:43am Advance Directive Response Recorded Date/ Time Advance Directives on File No September 102024 12:27pm Living Will No September 29, 2024 1 2:27pm Do you have a Healthcare Pow er of Authorization Representative? No September 29, 2024 12:27pm Do you have a Healthcare Pow er of Authorization Representative? Yes October 22, 2024 10:36am Name of Medical Power of Authorization Representative ALEXANDR ULTRICH-GRANDDAUGHTER October 22, 2024 10:36am Advance Directives Yes January 11:43am Advance Directive Response Recorded Date/ Time Do you have a Healthcare Pow er of Authorization Representative? Yes October 22, 2024 10:36am Name of Medical Power of Authorization Representative ALEXANDR ULTRICH-GRANDDAUGHTER October 22, 2024 10:36am Advance Directives Yes January 11:43am Reason for Referral Specialty Diagnoses / Procedures Referred By Contac t Referred To Contact Diagnoses 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 Procedures CONSULT TO FEMALE UROLOGY/URO GYNECOLOGY OFFICE/OUTPATIENT [facility] 60-74 MINUTES Lindsay Gongora MD [address] [place] [address] Referral ID Status Reason Start Date Expiration Date Visits Requested Visits Authorized [id number] Authorized PCP Requested Referral 09/21/2021 09/21/2022 1 1 Specialty Diagnoses / Procedures Referred By Contac t Referred To Contact Gastroenterology Diagnoses Elevated liver enzymes Decreased appetite Hiatal hernia with GERD without esophagitis 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 DiannaBOLT SORTER [address] [place] [phone] Referral ID Status Reason Start Date Expiration Date Visits Requested Visits Authorized [id number] Authorized PCP Requested Referral 05/17/2022 05/17/2023 1 1 Specialty Diagnoses / Procedures Referred By Contac t Referred To Contact Infectious Diseases Diagnoses Fever, unspecified fever cause Procedures CONSULT TO INFECTIOUS DISEASES OFFICE/OUTPATIENT [facility] 60-74 MINUTES Older, SORAYA Snow.BOLT SORTER [address] [place] [address] Referral ID Status Reason Start Date Expiration Date Visits Requested Visits Authorized [id number] Authorized PCP Requested Referral 05/22/2022 05/22/2023 1 1 Specialty Diagnoses / Procedures Referred By Contac t Referred To Contact CT IMAGING Diagnoses Hiatal hernia with GERD without esophagitis Personal history of colonic polyps Procedures CT ABD/PEL WO IVCON CT ABD & PELVIS W/O CONTRAST Katheryn Stokes MD [address] [facility] [place] [address] Ct Imaging Referral ID Status Reason Start Date Expiration Date Visits Requested Visits Authorized [id number] Pending Review Auto-Generat ed Referral 05/23/2022 06/22/2023 1 1 Specialty Diagnoses / Procedures Referred By Contac t Referred To Contact [facility] Diagnoses Hiatal hernia with GERD without esophagitis Personal history of colonic polyps Procedures COLONOSCOPY SCREENING COLONOSCOPY FLX DX W/COLLJ SPEC WHEN PFRMD Katheryn Stokes MD [address] [place] [address] [address] Referral ID Status Reason Start Date Expiration Date Visits Requested Visits Authorized [id number] Authorized Auto-Generat ed Referral 05/23/2022 05/23/2023 1 1 Specialty Diagnoses / Procedures Referred By Contac t Referred To Contact [facility] Diagnoses Hiatal hernia with GERD without esophagitis Personal history of colonic polyps Procedures EGD DIAGNOSTIC ESOPHAGOGASTRODUODENOSC OPY TRANSORAL DIAGNOSTIC Katheryn Stokes MD [address] [place] [address] [address] Referral ID Status Reason Start Date Expiration Date Visits Requested Visits Authorized [id number] Authorized Auto-Generat ed Referral 05/23/2022 05/23/2023 1 1 Specialty Diagnoses / Procedures Referred By Contac t Referred To Contact Vascular Surgery Diagnoses PAD (peripheral artery disease) (HCC) Procedures CONSULT TO VASCULAR SURGERY OFFICE/OUTPATIENT [facility] MDM 60-74 MINUTES Minerva Shaver MD [address] [place] [address] Referral ID Status Reason Start Date Expiration Date Visits Requested Visits Authorized [id number] Pending Review PCP Requested Referral 07/23/2022 07/19/2023 1 1 Specialty Diagnoses / Procedures Referred By Contac t Referred To Contact Neurology Diagnoses Cerebrovascular accident (CVA), unspecified mechanism (HCC) Dianna Ballard CNP [address] [place] [address] [facility] Referral ID Status Reason Start Date Expiration Date V isits Requested Visits Authorized [id number] Pending Review 08/19/2022 08/19/2023 1 1 Specialty Diagnoses / Procedures Referred By Contac t Referred To Contact Diagnoses Lumbar spondylosis Perlita Flowers MD [facility] [address] [address] [facility] [address] [place] [address] Referral ID Status Reason Start Date Expiration Date Visits Requested Visits Authorized [id number] Pending Review Patient Preference 09/13/2022 09/13/2023 1 1 Specialty Diagnoses / Procedures Referred By Contac t Referred To Contact CT IMAGING Diagnoses Left lower quadrant abdominal pain Right lower quadrant abdominal tenderness without rebound tenderness Bowel habit changes Blood in stool Procedures CT ABD/PEL W IVCON CT ABD & PELVIS W/CONTRAST Dianna Ballard APRN.BOLT SORTER [address] [place] [address] [place] [address] Referral ID Status Reason Start Date Expiration Date Visits Requested Visits Authorized [id number] Waiting for Online Response Auto-Generat ed Referral 12/26/2022 01/25/2024 2 2 Specialty Diagnoses / Procedures Referred By Contac t Referred To Contact Cardiology / [facility] [place] Diagnoses Atrial fibrillation, unspecified type (HCC) Bradycardia Shortness of breath Congestive heart failure, unspecified HF chronicity, unspecified heart failure type (HCC) On home oxygen therapy Procedures CONSULT TO CARDIOLOGY OFFICE/OUTPATIENT [facility] MDM 60-74 MINUTES Dianna Ballard APRN.BOLT SORTER [address] [place] [address] [facility] [address] [place] [address] Referral ID Status Reason Start Date Expiration Date Visits Requested Visits Authorized [id number] Pending Review PCP Requested Referral OON/Self Pay Override 01/23/2023 01/23/2024 1 1 Specialty Diagnoses / Procedures Referred By Contac t Referred To Contact XR IMAGING Diagnoses Fall, initial encounter Acute pain of right shoulder Procedures XR SHOULDER [id number] AP/TRUE AP RIGHT RADEX SHOULDER COMPLETE MINIMUM 2 VIEWS Dianna Ballard APRN.BOLT SORTER [address] [place] [address] [place] [address] Referral ID Status Reason Start Date Expiration Date V isits Requested Visits Authorized [id number] Closed Auto-Generate d Referral 01/23/2023 02/22/2024 1 1 Specialty Diagnoses / Procedures Referred By Contac t Referred To Contact [facility] Diagnoses Atrial fibrillation, unspecified type (HCC) Bradycardia Procedures ECG COMPLETE ECG ROUTINE ECG W/LEAST 12 LDS W/I&R Dianna Ballard APRN.ANITHA [address] [place] [phone] [facility] [address] [place] [address] Referral ID Status Reason Start Date Expiration Date V isits Requested Visits Authorized [id number] Closed Auto-Generate d Referral 01/23/2023 01/23/2024 1 1 Specialty Diagnoses / Procedures Referred By Contac t Referred To Contact CT IMAGING Diagnoses Hiatal hernia with GERD without esophagitis Personal history of colonic polyps Procedures CT ABD/PEL WO IVCON CT ABD & PELVIS W/O CONTRAST Katheryn Stokes MD [address] [place] [address] Ct Imaging [place] [address] Referral ID Status Reason Start Date Expiration Date V isits Requested Visits Authorized [id number] Closed Auto-Generate d Referral 05/24/2022 05/11/2023 2 2 Referral ID Status Reason Start Date Expiration Date V isits Requested Visits Authorized [id number] Closed Auto-Generate d Referral 12/26/2022 01/25/2023 1 1 Specialty Diagnoses / Procedures Referred By Contac t Referred To Contact [facility] Diagnoses Frailty syndrome in geriatric patient Balance disorder Procedures CONSULT TO PHYSICAL THERAPY PHYSICAL THERAPY EVALUATION HIGH COMPLEX 45 MINS Minerva Shaver MD [address] [place] [phone] [facility] [address] [address] Referral ID Status Reason Start Date Expiration Date Visits Requested Visits Authorized [id number] Pending Review Auto-Generat ed Referral 04/02/2025 1 1 Specialty Diagnoses / Procedures Referred By Contac t Referred To Contact Diagnoses Persistent atrial fibrillation Procedures CT CARDIAC PULMONARY VENOGRAM CHG CT HEART CONTRAST EVAL CARDIAC STRUCTURE&MORPH Alli Hernandez MD [address] [place] [address] Referral ID Status Reason Start Date Expiration Date Visits Re quested Visits Authorized [id number] Closed 03/08/2024 04/02/2025 1 1 Specialty Diagnoses / Procedures Referred By Contac t Referred To Contact Diagnoses Persistent atrial fibrillation Procedures MOBILE CARDIAC TELEMETRY Aracelis Pichardo, RADIATOR CORE TESTER-BOLT SORTER [address] [address] Referral ID Status Reason Start Date Expiration Date V isits Requested Visits Authorized [id number] New Request 04/22/2024 05/17/2025 1 1 Specialty Diagnoses / Procedures Referred By Contac t Referred To Contact Procedures ECG Kennedi Kala Tee, RADIATOR CORE TESTER-BOLT SORTER [address] [place] [address] Referral ID Status Reason Start Date Expiration Date V isits Requested Visits Authorized [id number] New Request 04/22/2024 05/17/2025 1 1 Specialty Diagnoses / Procedures Referred By Contac t Referred To Contact CT IMAGING Diagnoses 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) Lung nodules Former cigarette smoker Procedures CT CHEST WO IVCON DIAGNOSTIC COMPUTED TOMOGRAPHY THORAX W/O Laith Bolden MD [address] [place] [address] [place] [address] Referral ID Status Reason Start Date Expiration Date Visits Requested Visits Authorized [id number] Pending Review Auto-Generat ed Referral 07/17/2025 1 [...] HERNIA ELEVATED LFT bilat shoulders F/U PER L.LORSON Reason for Visit Internal impingement of both shoulders SOB (shortness of breath) Chronic diastolic (congestive) heart failure Paroxysmal atrial fibrillation Chief Complaint EORDERS general illness HIATAL HERNIA ELEVATED LFT bilat shoulders F/U PER L.LORSON AFIB PRE [facility]CCV I48.0 CVA Cerebrovascular accident Reason for Visit Internal impingement of both shoulders SOB (shortness of breath) Chronic diastolic (congestive) heart failure Paroxysmal atrial fibrillation Acute stroke due to ischemia Bradycardia, sinus, persistent, severe Chronic diastolic (congestive) heart failure residential (current) use of anticoagulants Chief Complaint EORDERS general illness HIATAL HERNIA ELEVATED LFT bilat shoulders F/U PER L.LITZY ARANDAIB PRE [facility] I48.0 CVA Cerebrovascular accident Cerebrovascular accident Reason for Visit Internal impingement of both shoulders SOB (shortness of breath) Chronic diastolic (congestive) heart failure Paroxysmal atrial fibrillation Acute stroke due to ischemia Bradycardia, sinus, persistent, severe Left-sided weakness Chronic 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 (congestive) heart failure 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 Chief Complaint EORDERS general illness HIATAL HERNIA ELEVATED LFT bilat shoulders F/U PER L.LITZY ARANDAIB PRE [facility] I48.0 CVA Cerebrovascular accident Cerebrovascular accident Cerebrovascular accident Reason for Visit Internal impingement of both shoulders SOB (shortness of breath) Chronic diastolic (congestive) heart failure Paroxysmal atrial fibrillation Acute stroke due to ischemia Bradycardia, sinus, persistent, severe Left-sided weakness Chronic 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 (congestive) heart failure 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 Chief Complaint EORDERS general illness HIATAL HERNIA ELEVATED LFT bilat shoulders F/U PER L.LITZY ARANDAIB PRE [facility] I48.0 CVA Cerebrovascular accident Cerebrovascular accident Cerebrovascular accident Cerebrovascular accident Reason for Visit Internal impingement of both shoulders SOB (shortness of breath) Chronic diastolic (congestive) heart failure Paroxysmal atrial fibrillation Acute stroke due to ischemia Bradycardia, sinus, persistent, severe Left-sided weakness Chronic diastolic (congestive) heart failure 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 Chief Complaint HIATAL HERNIA ELEVATED LFT bilat shoulders F/U PER L.LITZY AFIB PRE [facility] I48.0 CVA Cerebrovascular accident Cerebrovascular accident AM EKG Cerebrovascular accident Cerebrovascular accident [facility] [place] Reason for Visit Internal impingement of both shoulders SOB (shortness of breath) Paroxysmal atrial fibrillation Bradycardia, sinus, persistent, severe Left-sided weakness Aneurysm of left internal carotid artery Paroxysmal atrial fibrillation Chief Complaint AFIB PRE [facility] I48.0 CVA Cerebrovascular accident Cerebrovascular accident AM EKG Cerebrovascular accident Cerebrovascular accident [facility] [place] BI LAT SHOULDERS 4-6 [...] RESPIRATORY FAILURE ACUTE HYPOXIC RESPIRATORY FAILURE S/P [facility] ED 01/02/23 R HIP OA Reason for [...] 9:56a m Hx of atrioventricular node ablation Oct 9:56am Presence of cardiac pacemaker October 14, [...] LUMBAR SPINE October 15, 2024 10:28 am Chief Complaint Admit Date 3 M [...] LUMBAR SPINE October 15, 2024 10:28 am Left Carpal Tunnel Release October 25 5:55am Left Carpal Tunnel Release October 25 7:11am Reason for Visit Admit Date Aneurysm of [...] 9:56a m Hx of atrioventricular node ablation Oct 9:56am Presence of cardiac pacemaker October 14, 2024 9:56am Carpal tunnel syndrome of left wrist Oct 10:28am Degenerative disc disease, lumbar October 152024 10:28am Lumbar radiculopathy October 15, 2024 10:2 8am Neck pain with history of cervical spina l surgery October 15, 2024 10:28am Chief Complaint Admit Date 3 M FU [...] Atrial fibrillation September 30, 2024 12:52 pm Pacer Check Remote October 08, 2024 4:20p m Pacer Check Remote October 14, 2024 9:00a m 1 W WOUND CHECK ([facility]/ 6 wk post decrease HR) October 14, 2024 9:56am LUMBAR SPINE October 15, 2024 10:28 am Left Carpal Tunnel Release October 25 5:55am Left Carpal Tunnel Release October 25 7:11am Chief Complaint Admit Date 3 M FU [...] Atrial fibrillation September 30, 2024 12:52 pm Pacer Check Remote October 08, 2024 4:20p m Pacer Check Remote October 14, 2024 9:00a m 1 W WOUND CHECK ([facility]/ 6 wk post decrease HR) October 14, 2024 9:56am LUMBAR SPINE October 15, 2024 10:28 am Left Carpal Tunnel Release October 25 5:55am Left Carpal Tunnel Release October 25 7:11am left wrist November 09, 2024 9:30a m Reason for Visit Admit Date Aneurysm of [...] 9:56a m Hx of atrioventricular node ablation Oct 9:56am Presence of cardiac pacemaker October 14, 2024 9:56am Carpal tunnel syndrome of left wrist Oct 10:28am Degenerative disc disease, lumbar October 152024 10:28am Lumbar radiculopathy October 15, 2024 10:2 8am Neck pain with history of cervical spina l surgery October 15, 2024 10:28am Status post carpal tunnel release November 092024 9:30am Chief Complaint Admit Date 3 M FU [...] Atrial fibrillation September 30, 2024 12:52 pm Pacer Check Remote October 08, 2024 4:20p m Pacer Check Remote October 14, 2024 9:00a m 1 W WOUND CHECK ([facility]/ 6 wk post decrease HR) October 14, 2024 9:56am LUMBAR SPINE October 15, 2024 10:28 am Left Carpal Tunnel Release October 25 5:55am Left Carpal Tunnel Release October 25 7:11am left wrist November 09, 2024 9:30a m PACER ADJUSTMENTS PER [facility] November 17, 2024 9:23am Reason for Visit Admit Date Aneurysm of [...] 9:56a m Hx of atrioventricular node ablation Oct 9:56am Presence of cardiac pacemaker October 14, 2024 9:56am Carpal tunnel syndrome of left wrist Oct 10:28am Degenerative disc disease, lumbar October 152024 10:28am Lumbar radiculopathy October 15, 2024 10:2 8am Neck pain with history of cervical spina l surgery October 15, 2024 10:28am Status post carpal tunnel release November 092024 9:30am Presence of permanent cardiac pacemaker November 17, 2024 9:23am Hx of atrioventricular node ablation Nov 9:23am Presence of cardiac pacemaker November 17, 2024 9:23am Chief Complaint Admit Date PALPITATIONS July 31, 2024 10: 29pm LUMBAR [...] Atrial fibrillation September 30, 2024 12:52 pm Pacer Check Remote October 08, 2024 4:20p m Pacer Check Remote October 14, 2024 9:00a m 1 W WOUND CHECK ([facility]/ 6 wk post decrease HR) October 14, 2024 9:56am LUMBAR SPINE October 15, 2024 10:28 am Left Carpal Tunnel Release October 25 5:55am Left Carpal Tunnel Release October 25 7:11am left wrist November 09, 2024 9:30a m Pacer Check Remote November 17, 2024 9:00a m PACER ADJUSTMENTS PER [facility] November 17, 2024 9:23am Reason for Visit Admit Date Degenerative disc disease, lumbar August 17, 2024 10:54am Lumbar radiculopathy August 17, 2024 10: 54am Neck pain with history of cervical spina l surgery August 17, 2024 10:54am Persistent atrial fibrillation with RVR September 30, 2024 10:52am Complete AV block October 14, 2024 9:56a m Hx of atrioventricular node ablation Oct 9:56am Presence of cardiac pacemaker October 14, 2024 9:56am Carpal tunnel syndrome of left wrist Oct 10:28am Degenerative disc disease, lumbar October 152024 10:28am Lumbar radiculopathy October 15, 2024 10:2 8am Neck pain with history of cervical spina l surgery October 15, 2024 10:28am Status post carpal tunnel release November 092024 9:30am Presence of permanent cardiac pacemaker November 17, 2024 9:23am Hx of atrioventricular node ablation Nov 9:23am Presence of cardiac pacemaker November 17, 2024 9:23am Chief Complaint Admit Date LUMBAR RADICULOPATHY, DDD September 25, 2024 8:00am PER RISA September 29, 2024 10:40 am AFIB September 30, 2024 10:52 am Atrial fibrillation September 30, 2024 12:52 pm Pacer Check Remote October 08, 2024 4:20p m Pacer Check Remote October 14, 2024 9:00a m 1 W WOUND CHECK ([facility]/ 6 wk post decrease HR) October 14, 2024 9:56am LUMBAR SPINE October 15, 2024 10:28 am Left Carpal Tunnel Release October 25 5:55am Left Carpal Tunnel Release October 25 7:11am left wrist November 09, 2024 9:30a m Pacer Check Remote November 17, 2024 9:00a m PACER ADJUSTMENTS PER [facility] November 17, 2024 9:23am Pacer Check Remote January 05, 2025 8: 02pm Reason for Visit Admit Date Persistent atrial fibrillation with RVR September 30, 2024 10:52am Complete AV block October 14, 2024 9:56a m Hx of atrioventricular node ablation Oct 9:56am Presence of cardiac pacemaker October 14, 2024 9:56am Carpal tunnel syndrome of left wrist Oct 10:28am Degenerative disc disease, lumbar October 152024 10:28am Lumbar radiculopathy October 15, 2024 10:2 8am Neck pain with history of cervical spina l surgery October 15, 2024 10:28am Status post carpal tunnel release November 092024 9:30am Presence of permanent cardiac pacemaker November 17, 2024 9:23am Hx of atrioventricular node ablation Nov 9:23am Presence of cardiac pacemaker November 17, 2024 9:23am Chief Complaint Admit Date PER RISA September 29, 2024 10:40 am AFIB September 30, 2024 10:52 am Atrial fibrillation September 30, 2024 12:52 pm Pacer Check Remote October 08, 2024 4:20p m Pacer Check Remote October 14, 2024 9:00a m 1 W WOUND CHECK ([facility]/ 6 wk post decrease HR) October 14, 2024 9:56am LUMBAR SPINE October 15, 2024 10:28 am Left Carpal Tunnel Release October 25 5:55am Left Carpal Tunnel Release October 25 7:11am left wrist November 09, 2024 9:30a m Pacer Check Remote November 17, 2024 9:00a m PACER ADJUSTMENTS [facility] November 17, 2024 9:23am Pacer Check Remote January 05, 2025 8: 02pm PACER MOVED BY NECK January 25, 2025 2:27pm Reason for Visit Admit Date Persistent atrial fibrillation with RVR September 30, 2024 10:52am Complete AV block October 14, 2024 9:56a m Hx of atrioventricular node ablation Oct 9:56am Presence of cardiac pacemaker October 14, 2024 9:56am Carpal tunnel syndrome of left wrist Oct 10:28am Degenerative disc disease, lumbar October 152024 10:28am Lumbar radiculopathy October 15, 2024 10:2 8am Neck pain with history of cervical spina l surgery October 15, 2024 10:28am Status post carpal tunnel release November 092024 9:30am Presence of permanent cardiac pacemaker November 17, 2024 9:23am Hx of atrioventricular node ablation Nov 9:23am Presence of cardiac pacemaker November 17, 2024 9:23am Presence of permanent cardiac pacemaker January 25, 2025 2:27pm Complete AV block January 25, 2025 2:27pm Presence of cardiac pacemaker January 25, 2025 2:27pm Chief Complaint Admit Date PER RISA September 29, 2024 10:40 am AFIB September 30, 2024 10:52 am Atrial fibrillation September 30, 2024 12:52 pm Pacer Check Remote October 08, 2024 4:20p m Pacer Check Remote October 14, 2024 9:00a m 1 W WOUND CHECK ([facility]/ 6 wk post decrease HR) October 14, 2024 9:56am LUMBAR SPINE October 15, 2024 10:28 am Left Carpal Tunnel Release October 25 5:55am Left Carpal Tunnel Release October 25 7:11am left wrist November 09, 2024 9:30a m Pacer Check Remote November 17, 2024 9:00a m PACER ADJUSTMENTS [facility] November 17, 2024 9:23am Pacer Check Remote January 05, 2025 8: 02pm PACER MOVED BY NECK January 25, 2025 2:27pm right hip January 26, 2025 8:53am Room 1 January 26, 2025 9:19am Chief Complaint Admit Date PER RISA September 29, 2024 10:40 am AFIB September 30, 2024 10:52 am Atrial fibrillation September 30, 2024 12:52 pm Pacer Check Remote October 08, 2024 4:20p m Pacer Check Remote October 14, 2024 9:00a m 1 W WOUND CHECK ([facility]/ 6 wk post decrease HR) October 14, 2024 9:56am LUMBAR SPINE October 15, 2024 10:28 am Left Carpal Tunnel Release October 25 5:55am Left Carpal Tunnel Release October 25 7:11am left wrist November 09, 2024 9:30a m Pacer Check Remote November 17, 2024 9:00a m PACER ADJUSTMENTS [facility] November 17, 2024 9:23am Pacer Check Remote January 05, 2025 8: 02pm Pacer Check Remote January 25, 2025 9:00am PACER MOVED BY NECK January 25, 2025 2:27pm right hip January 26, 2025 8:53am Room 1 January 26, 2025 9:19am Reason for Visit Admit Date Persistent atrial fibrillation with RVR September 30, 2024 10:52am Complete AV block October 14, 2024 9:56a m Hx of atrioventricular node ablation Oct 9:56am Presence of cardiac pacemaker October 14, 2024 9:56am Carpal tunnel syndrome of left wrist Oct 10:28am Degenerative disc disease, lumbar October 152024 10:28am Lumbar radiculopathy October 15, 2024 10:2 8am Neck pain with history of cervical spina l surgery October 15, 2024 10:28am Status post carpal tunnel release November 092024 9:30am Presence of permanent cardiac pacemaker November 17, 2024 9:23am Hx of atrioventricular node ablation Nov 9:23am Presence of cardiac pacemaker November 17, 2024 9:23am Presence of permanent cardiac pacemaker January 25, 2025 2:27pm Complete AV block January 25, 2025 2:27pm Presence of cardiac pacemaker January 25, 2025 2:27pm Degenerative disc disease, lumbar Septem 2024 8:53am Degenerative scoliosis January 26, 2 025 8:53am Osteoarthritis of right hip January 262024 8:53am Chief Complaint Admit Date Pacer Check Remote October 08, 2024 4:20p m Pacer Check Remote October 14, 2024 9:00a m 1 W WOUND CHECK ([facility]/ 6 wk post decrease HR) October 14, 2024 9:56am LUMBAR SPINE October 15, 2024 10:28 am Left Carpal Tunnel Release October 25 5:55am Left Carpal Tunnel Release October 25 7:11am left wrist November 09, 2024 9:30a m Pacer Check Remote November 17, 2024 9:00a m PACER ADJUSTMENTS [facility] November 17, 2024 9:23am Pacer Check Remote January 05, 2025 8: 02pm Pacer Check Remote January 25, 2025 9:00am PACER MOVED BY NECK January 25, 2025 2:27pm right hip January 26, 2025 8:53am Room 1 January 26, 2025 9:19am 6 M [facility] January 27, 2025 10:54am Reason for Visit Admit Date Complete AV block October 14, 2024 9:56a m Hx of atrioventricular node ablation Oct 9:56am Presence of cardiac pacemaker October 14, 2024 9:56am Carpal tunnel syndrome of left wrist Oct 10:28am Degenerative disc disease, lumbar October 152024 10:28am Lumbar radiculopathy October 15, 2024 10:2 8am Neck pain with history of cervical spina l surgery October 15, 2024 10:28am Status post carpal tunnel release November 092024 9:30am Presence of permanent cardiac pacemaker November 17, 2024 9:23am Hx of atrioventricular node ablation Nov 9:23am Presence of cardiac pacemaker November 17, 2024 9:23am Presence of permanent cardiac pacemaker January 25, 2025 2:27pm Complete AV block January 25, 2025 2:27pm Presence of cardiac pacemaker January 25, 2025 2:27pm Degenerative disc disease, lumbar Septem 2024 8:53am Degenerative scoliosis January 26, 025 8:53am Osteoarthritis of right hip January 262024 8:53am Aneurysm of left internal carotid artery January 27, 2025 10:54am Presence of permanent cardiac pacemaker January 27, 2025 10:54am Chronic diastolic (congestive) heart gema lure January 27, 2025 10:54am Paroxysmal atrial fibrillation January 27, 2025 10:54am Family History No Family History Records Found [...] or prosecute any alcohol or drug abuse patient.[facility] [place] the event this information is protected by the Federal Confidentiality of Alcohol and Drug Abuse Patient Records regulations: The Federal rules restrict any use of the information to criminally investigate or prosecute any alcohol or drug abuse patient.[facility] [place]In the event this information is protected by the Federal Confidentiality of Alcohol and Drug Abuse Patient Records regulations: The Federal rules restrict any use of the information to criminally investigate or prosecute any alcohol or drug abuse patient.[facility] [place]In the event this information is protected by the Federal Confidentiality of Alcohol and Drug Abuse Patient Records regulations: The Federal rules restrict any use of the information to criminally investigate or prosecute any alcohol or drug abuse patient.[facility] [place]In the event this information is protected by the Federal Confidentiality of Alcohol and Drug Abuse Patient Records regulations: The Federal rules restrict any use of the information to criminally investigate or prosecute any alcohol or drug abuse patient.[facility] [place]In the event this information is protected by the Federal Confidentiality of Alcohol and Drug Abuse Patient Records regulations: The Federal rules restrict any use of the information to criminally investigate or prosecute any alcohol or drug abuse patient.[facility] [place]In the event this information is protected by the Federal Confidentiality of Alcohol and Drug Abuse Patient Records regulations: The Federal rules restrict any use of the information to criminally investigate or prosecute any alcohol or drug abuse patient.[facility] [place]In the event this information is protected by the Federal Confidentiality of Alcohol and Drug Abuse Patient Records regulations: The Federal rules restrict any use of the information to criminally investigate or prosecute any alcohol or drug abuse patient.[facility] [place]In the event this information is protected by the Federal Confidentiality of Alcohol and Drug Abuse Patient Records regulations: The Federal rules restrict any use of the information to criminally investigate or prosecute any alcohol or drug abuse patient.[facility] [place]In the event this information is protected by the Federal Confidentiality of Alcohol and Drug Abuse Patient Records regulations: The Federal rules restrict any use of the information to criminally investigate or prosecute any alcohol or drug abuse patient.[facility] [place]In the event this information is protected by the Federal Confidentiality of Alcohol and Drug Abuse Patient Records regulations: The Federal rules restrict any use of the information to criminally investigate or prosecute any alcohol or drug abuse patient.[facility] [place]In the event this information is protected by the Federal Confidentiality of Alcohol and Drug Abuse Patient Records regulations: The Federal rules restrict any use of the information to criminally investigate or prosecute any alcohol or drug abuse patient.[facility] [place]In the event this information is protected by the Federal Confidentiality of Alcohol and Drug Abuse Patient Records regulations: The Federal rules restrict any use of the information to criminally investigate or prosecute any alcohol or drug abuse patient.[facility] [place]In the event this information is protected by the Federal Confidentiality of Alcohol and Drug Abuse Patient Records regulations: The Federal rules restrict any use of the information to criminally investigate or prosecute any alcohol or drug abuse patient.[facility] [place]In the event this information is protected by the Federal Confidentiality of Alcohol and Drug Abuse Patient Records regulations: The Federal rules restrict any use of the information to criminally investigate or prosecute any alcohol or drug abuse patient.[facility] [place]In the event this information is protected by the Federal Confidentiality of Alcohol and Drug Abuse Patient Records regulations: The Federal rules restrict any use of the information to criminally investigate or prosecute any alcohol or drug abuse patient.[facility] [place]In the event this information is protected by the Federal Confidentiality of Alcohol and Drug Abuse Patient Records regulations: The Federal rules restrict any use of the information to criminally investigate or prosecute any alcohol or drug abuse patient.[facility] [place]In the event this information is protected by the Federal Confidentiality of Alcohol and Drug Abuse Patient Records regulations: The Federal rules restrict any use of the information to criminally investigate or prosecute any alcohol or drug abuse patient.[facility] [place]In the event this information is protected by the Federal Confidentiality of Alcohol and Drug Abuse Patient Records regulations: The Federal rules restrict any use of the information to criminally investigate or prosecute any alcohol or drug abuse patient.[facility] [place]In the event this information is protected by the Federal Confidentiality of Alcohol and Drug Abuse Patient Records regulations: The Federal rules restrict any use of the information to criminally investigate or prosecute any alcohol or drug abuse patient.[facility] [place]In the event this information is protected by the Federal Confidentiality of Alcohol and Drug Abuse Patient Records regulations: The Federal rules restrict any use of the information to criminally investigate or prosecute any alcohol or drug abuse patient.[facility] [place]In the event this information is protected by the Federal Confidentiality of Alcohol and Drug Abuse Patient Records regulations: The Federal rules restrict any use of the information to criminally investigate or prosecute any alcohol or drug abuse patient.[facility] [place]In the event this information is protected by the Federal Confidentiality of Alcohol and Drug Abuse Patient Records regulations: The Federal rules restrict any use of the information to criminally investigate or prosecute any alcohol or drug abuse patient.[facility] [place]In the event this information is protected by the Federal Confidentiality of Alcohol and Drug Abuse Patient Records regulations: The Federal rules restrict any use of the information to criminally investigate or prosecute any alcohol or drug abuse patient.[facility] [place]In the event this information is protected by the Federal Confidentiality of Alcohol and Drug Abuse Patient Records regulations: The Federal rules restrict any use of the information to criminally investigate or prosecute any alcohol or drug abuse patient.[facility] [place]In the event this information is protected by the Federal Confidentiality of Alcohol and Drug Abuse Patient Records regulations: The Federal rules restrict any use of the information to criminally investigate or prosecute any alcohol or drug abuse patient.[facility] [place]In the event this information is protected by the Federal Confidentiality of Alcohol and Drug Abuse Patient Records regulations: The Federal rules restrict any use of the information to criminally investigate or prosecute any alcohol or drug abuse patient.[facility] [place]In the event this information is protected by the Federal Confidentiality of Alcohol and Drug Abuse Patient Records regulations: The Federal rules restrict any use of the information to criminally investigate or prosecute any alcohol or drug abuse patient.[facility] [place]In the event this information is protected by the Federal Confidentiality of Alcohol and Drug Abuse Patient Records regulations: The Federal rules restrict any use of the information to criminally investigate or prosecute any alcohol or drug abuse patient.[facility] [place]In the event this information is protected by the Federal Confidentiality of Alcohol and Drug Abuse Patient Records regulations: The Federal rules restrict any use of the information to criminally investigate or prosecute any alcohol or drug abuse patient.[facility] [place]In the event this information is protected by the Federal Confidentiality of Alcohol and Drug Abuse Patient Records regulations: The Federal rules restrict any use of the information to criminally investigate or prosecute any alcohol or drug abuse patient.[facility] [place]In the event this information is protected by the Federal Confidentiality of Alcohol and Drug Abuse Patient Records regulations: The Federal rules restrict any use of the information to criminally investigate or prosecute any alcohol or drug abuse patient.[facility] [place]In the event this information is protected by the Federal Confidentiality of Alcohol and Drug Abuse Patient Records regulations: The Federal rules restrict any use of the information to criminally investigate or prosecute any alcohol or drug abuse patient.[facility] [place]In the event this information is protected by the Federal Confidentiality of Alcohol and Drug Abuse Patient Records regulations: The Federal rules restrict any use of the information to criminally investigate or prosecute any alcohol or drug abuse patient.[facility] [place]In the event this information is protected by the Federal Confidentiality of Alcohol and Drug Abuse Patient Records regulations: The Federal rules restrict any use of the information to criminally investigate or prosecute any alcohol or drug abuse patient.[facility] [place]In the event this information is protected by the Federal Confidentiality of Alcohol and Drug Abuse Patient Records regulations: The Federal rules restrict any use of the information to criminally investigate or prosecute any alcohol or drug abuse patient.[facility] [place]In the event this information is protected by the Federal Confidentiality of Alcohol and Drug Abuse Patient Records regulations: The Federal rules restrict any use of the information to criminally investigate or prosecute any alcohol or drug abuse patient.[facility] [place]In the event this information is protected by the Federal Confidentiality of Alcohol and Drug Abuse Patient Records regulations: The Federal rules restrict any use of the information to criminally investigate or prosecute any alcohol or drug abuse patient.[facility] [place]In the event this information is protected by the Federal Confidentiality of Alcohol and Drug Abuse Patient Records regulations: The Federal rules restrict any use of the information to criminally investigate or prosecute any alcohol or drug abuse patient.[facility] [place]In the event this information is protected by the Federal Confidentiality of Alcohol and Drug Abuse Patient Records regulations: The Federal rules restrict any use of the information to criminally investigate or prosecute any alcohol or drug abuse patient.[facility] [place]In the event this information is protected by the Federal Confidentiality of Alcohol and Drug Abuse Patient Records regulations: The Federal rules restrict any use of the information to criminally investigate or prosecute any alcohol or drug abuse patient.[facility] [place]In the event this information is protected by the Federal Confidentiality of Alcohol and Drug Abuse Patient Records regulations: The Federal rules restrict any use of the information to criminally investigate or prosecute any alcohol or drug abuse patient.[facility] [place]In the event this information is protected by the Federal Confidentiality of Alcohol and Drug Abuse Patient Records regulations: The Federal rules restrict any use of the information to criminally investigate or prosecute any alcohol or drug abuse patient.[facility] [place]In the event this information is protected by the Federal Confidentiality of Alcohol and Drug Abuse Patient Records regulations: The Federal rules restrict any use of the information to criminally investigate or prosecute any alcohol or drug abuse patient.[facility] [place]In the event this information is protected by the Federal Confidentiality of Alcohol and Drug Abuse Patient Records regulations: The Federal rules restrict any use of the information to criminally investigate or prosecute any alcohol or drug abuse patient.[facility] [place]In the event this information is protected by the Federal Confidentiality of Alcohol and Drug Abuse Patient Records regulations: The Federal rules restrict any use of the information to criminally investigate or prosecute any alcohol or drug abuse patient.[facility] [place]In the event this information is protected by the Federal Confidentiality of Alcohol and Drug Abuse Patient Records regulations: The Federal rules restrict any use of the information to criminally investigate or prosecute any alcohol or drug abuse patient.[facility] [place]In the event this information is protected by the Federal Confidentiality of Alcohol and Drug Abuse Patient Records regulations: The Federal rules restrict any use of the information to criminally investigate or prosecute any alcohol or drug abuse patient.[facility] [place]In the event this information is protected by the Federal Confidentiality of Alcohol and Drug Abuse Patient Records regulations: The Federal rules restrict any use of the information to criminally investigate or prosecute any alcohol or drug abuse patient.[facility] [place]In the event this information is protected by the Federal Confidentiality of Alcohol and Drug Abuse Patient Records regulations: The Federal rules restrict any use of the information to criminally investigate or prosecute any alcohol or drug abuse patient.[facility] [place]In the event this information is protected by the Federal Confidentiality of Alcohol and Drug Abuse Patient Records regulations: The Federal rules restrict any use of the information to criminally investigate or prosecute any alcohol or drug abuse patient.[facility] [place]In the event this information is protected by the Federal Confidentiality of Alcohol and Drug Abuse Patient Records regulations: The Federal rules restrict any use of the information to criminally investigate or prosecute any alcohol or drug abuse patient.[facility] [place]In the event this information is protected by the Federal Confidentiality of Alcohol and Drug Abuse Patient Records regulations: The Federal rules restrict any use of the information to criminally investigate or prosecute any alcohol or drug abuse patient.[facility] [facility] [place] the event this information is protected by the Federal Confidentiality of Alcohol and Drug Abuse Patient Records regulations: The Federal rules restrict any use of the information to criminally investigate or prosecute any alcohol or drug abuse patient.[facility] [place]In the event this information is protected by the Federal Confidentiality of Alcohol and Drug Abuse Patient Records regulations: The Federal rules restrict any use of the information to criminally investigate or prosecute any alcohol or drug abuse patient.[facility] [place]In the event this information is protected by the Federal Confidentiality of Alcohol and Drug Abuse Patient Records regulations: The Federal rules restrict any use of the information to criminally investigate or prosecute any alcohol or drug abuse patient.[facility] [place]In the event this information is protected by the Federal Confidentiality of Alcohol and Drug Abuse Patient Records regulations: The Federal rules restrict any use of the information to criminally investigate or prosecute any alcohol or drug abuse patient.[facility] [place]In the event this information is protected by the Federal Confidentiality of Alcohol and Drug Abuse Patient Records regulations: The Federal rules restrict any use of the information to criminally investigate or prosecute any alcohol or drug abuse patient.[facility] [place]In the event this information is protected by the Federal Confidentiality of Alcohol and Drug Abuse Patient Records regulations: The Federal rules restrict any use of the information to criminally investigate or prosecute any alcohol or drug abuse patient.[facility] [place]In the event this information is protected by the Federal Confidentiality of Alcohol and Drug Abuse Patient Records regulations: The Federal rules restrict any use of the information to criminally investigate or prosecute any alcohol or drug abuse patient.[facility] [place]In the event this information is protected by the Federal Confidentiality of Alcohol and Drug Abuse Patient Records regulations: The Federal rules restrict any use of the information to criminally investigate or prosecute any alcohol or drug abuse patient.[facility] [place]In the event this information is protected by the Federal Confidentiality of Alcohol and Drug Abuse Patient Records regulations: The Federal rules restrict any use of the information to criminally investigate or prosecute any alcohol or drug abuse patient.[facility] [place]In the event this information is protected by the Federal Confidentiality of Alcohol and Drug Abuse Patient Records regulations: The Federal rules restrict any use of the information to criminally investigate or prosecute any alcohol or drug abuse patient.[facility] [place]In the event this information is protected by the Federal Confidentiality of Alcohol and Drug Abuse Patient Records regulations: The Federal rules restrict any use of the information to criminally investigate or prosecute any alcohol or drug abuse patient.[facility] [place]In the event this information is protected by the Federal Confidentiality of Alcohol and Drug Abuse Patient Records regulations: The Federal rules restrict any use of the information to criminally investigate or prosecute any alcohol or drug abuse patient.[facility] [place]In the event this information is protected by the Federal Confidentiality of Alcohol and Drug Abuse Patient Records regulations: The Federal rules restrict any use of the information to criminally investigate or prosecute any alcohol or drug abuse patient.[facility] [place]In the event this information is protected by the Federal Confidentiality of Alcohol and Drug Abuse Patient Records regulations: The Federal rules restrict any use of the information to criminally investigate or prosecute any alcohol or drug abuse patient.[facility] [place]In the event this information is protected by the Federal Confidentiality of Alcohol and Drug Abuse Patient Records regulations: The Federal rules restrict any use of the information to criminally investigate or prosecute any alcohol or drug abuse patient.[facility] [place]In the event this information is protected by the Federal Confidentiality of Alcohol and Drug Abuse Patient Records regulations: The Federal rules restrict any use of the information to criminally investigate or prosecute any alcohol or drug abuse patient.[facility] [place]In the event this information is protected by the Federal Confidentiality of Alcohol and Drug Abuse Patient Records regulations: The Federal rules restrict any use of the information to criminally investigate or prosecute any alcohol or drug abuse patient.[facility] [place]In the event this information is protected by the Federal Confidentiality of Alcohol and Drug Abuse Patient Records regulations: The Federal rules restrict any use of the information to criminally investigate or prosecute any alcohol or drug abuse patient.[facility] [place]In the event this information is protected by the Federal Confidentiality of Alcohol and Drug Abuse Patient Records regulations: The Federal rules restrict any use of the information to criminally investigate or prosecute any alcohol or drug abuse patient.[facility] [place]In the event this information is protected by the Federal Confidentiality of Alcohol and Drug Abuse Patient Records regulations: The Federal rules restrict any use of the information to criminally investigate or prosecute any alcohol or drug abuse patient.[facility] [place]In the event this information is protected by the Federal Confidentiality of Alcohol and Drug Abuse Patient Records regulations: The Federal rules restrict any use of the information to criminally investigate or prosecute any alcohol or drug abuse patient.[facility] [place]In the event this information is protected by the Federal Confidentiality of Alcohol and Drug Abuse Patient Records regulations: The Federal rules restrict any use of the information to criminally investigate or prosecute any alcohol or drug abuse patient.[facility] [place]In the event this information is protected by the Federal Confidentiality of Alcohol and Drug Abuse Patient Records regulations: The Federal rules restrict any use of the information to criminally investigate or prosecute any alcohol or drug abuse patient.[facility] [place]In the event this information is protected by the Federal Confidentiality of Alcohol and Drug Abuse Patient Records regulations: The Federal rules restrict any use of the information to criminally investigate or prosecute any alcohol or drug abuse patient.[facility] [place]In the event this information is protected by the Federal Confidentiality of Alcohol and Drug Abuse Patient Records regulations: The Federal rules restrict any use of the information to criminally investigate or prosecute any alcohol or drug abuse patient.[facility] [place]In the event this information is protected by the Federal Confidentiality of Alcohol and Drug Abuse Patient Records regulations: The Federal rules restrict any use of the information to criminally investigate or prosecute any alcohol or drug abuse patient.[facility] [place]In the event this information is protected by the Federal Confidentiality of Alcohol and Drug Abuse Patient Records regulations: The Federal rules restrict any use of the information to criminally investigate or prosecute any alcohol or drug abuse patient.[facility] [place]In the event this information is protected by the Federal Confidentiality of Alcohol and Drug Abuse Patient Records regulations: The Federal rules restrict any use of the information to criminally investigate or prosecute any alcohol or drug abuse patient.[facility] [place]In the event this information is protected by the Federal Confidentiality of Alcohol and Drug Abuse Patient Records regulations: The Federal rules restrict any use of the information to criminally investigate or prosecute any alcohol or drug abuse patient.[facility] [place]In the event this information is protected by the Federal Confidentiality of Alcohol and Drug Abuse Patient Records regulations: The Federal rules restrict any use of the information to criminally investigate or prosecute any alcohol or drug abuse patient.[facility] [place]In the event this information is protected by the Federal Confidentiality of Alcohol and Drug Abuse Patient Records regulations: The Federal rules restrict any use of the information to criminally investigate or prosecute any alcohol or drug abuse patient.[facility] [place]In the event this information is protected by the Federal Confidentiality of Alcohol and Drug Abuse Patient Records regulations: The Federal rules restrict any use of the information to criminally investigate or prosecute any alcohol or drug abuse patient.[facility] [place]In the event this information is protected by the Federal Confidentiality of Alcohol and Drug Abuse Patient Records regulations: The Federal rules restrict any use of the information to criminally investigate or prosecute any alcohol or drug abuse patient.[facility] [place]In the event this information is protected by the Federal Confidentiality of Alcohol and Drug Abuse Patient Records regulations: The Federal rules restrict any use of the information to criminally investigate or prosecute any alcohol or drug abuse patient.[facility] [place]In the event this information is protected by the Federal Confidentiality of Alcohol and Drug Abuse Patient Records regulations: The Federal rules restrict any use of the information to criminally investigate or prosecute any alcohol or drug abuse patient.[facility] [place]In the event this information is protected by the Federal Confidentiality of Alcohol and Drug Abuse Patient Records regulations: The Federal rules restrict any use of the information to criminally investigate or prosecute any alcohol or drug abuse patient.[facility] [place]In the event this information is protected by the Federal Confidentiality of Alcohol and Drug Abuse Patient Records regulations: The Federal rules restrict any use of the information to criminally investigate or prosecute any alcohol or drug abuse patient.[facility] [place]In the event this information is protected by the Federal Confidentiality of Alcohol and Drug Abuse Patient Records regulations: The Federal rules restrict any use of the information to criminally investigate or prosecute any alcohol or drug abuse patient.[facility] [place]In the event this information is protected by the Federal Confidentiality of Alcohol and Drug Abuse Patient Records regulations: The Federal rules restrict any use of the information to criminally investigate or prosecute any alcohol or drug abuse patient.[facility] [place]In the event this information is protected by the Federal Confidentiality of Alcohol and Drug Abuse Patient Records regulations: The Federal rules restrict any use of the information to criminally investigate or prosecute any alcohol or drug abuse patient.[facility] [place]In the event this information is protected by the Federal Confidentiality of Alcohol and Drug Abuse Patient Records regulations: The Federal rules restrict any use of the information to criminally investigate or prosecute any alcohol or drug abuse patient.[facility] [place]In the event this information is protected by the Federal Confidentiality of Alcohol and Drug Abuse Patient Records regulations: The Federal rules restrict any use of the information to criminally investigate or prosecute any alcohol or drug abuse patient.[facility] [place]In the event this information is protected by the Federal Confidentiality of Alcohol and Drug Abuse Patient Records regulations: The Federal rules restrict any use of the information to criminally investigate or prosecute any alcohol or drug abuse patient.[facility] [place]In the event this information is protected by the Federal Confidentiality of Alcohol and Drug Abuse Patient Records regulations: The Federal rules restrict any use of the information to criminally investigate or prosecute any alcohol or drug abuse patient.[facility] [place]In the event this information is protected by the Federal Confidentiality of Alcohol and Drug Abuse Patient Records regulations: The Federal rules restrict any use of the information to criminally investigate or prosecute any alcohol or drug abuse patient.[facility] [place]In the event this information is protected by the Federal Confidentiality of Alcohol and Drug Abuse Patient Records regulations: The Federal rules restrict any use of the information to criminally investigate or prosecute any alcohol or drug abuse patient.[facility] [place]In the event this information is protected by the Federal Confidentiality of Alcohol and Drug Abuse Patient Records regulations: The Federal rules restrict any use of the information to criminally investigate or prosecute any alcohol or drug abuse patient.[facility] [place]In the event this information is protected by the Federal Confidentiality of Alcohol and Drug Abuse Patient Records regulations: The Federal rules restrict any use of the information to criminally investigate or prosecute any alcohol or drug abuse patient.[facility] [place]In the event this information is protected by the Federal Confidentiality of Alcohol and Drug Abuse Patient Records regulations: The Federal rules restrict any use of the information to criminally investigate or prosecute any alcohol or drug abuse patient.[facility] [place]In the event this information is protected by the Federal Confidentiality of Alcohol and Drug Abuse Patient Records regulations: The Federal rules restrict any use of the information to criminally investigate or prosecute any alcohol or drug abuse patient.[facility] [place]In the event this information is protected by the Federal Confidentiality of Alcohol and Drug Abuse Patient Records regulations: The Federal rules restrict any use of the information to criminally investigate or prosecute any alcohol or drug abuse patient.[facility] [place]In the event this information is protected by the Federal Confidentiality of Alcohol and Drug Abuse Patient Records regulations: The Federal rules restrict any use of the information to criminally investigate or prosecute any alcohol or drug abuse patient.[facility] [place]In the event this information is protected by the Federal Confidentiality of Alcohol and Drug Abuse Patient Records regulations: The Federal rules restrict any use of the information to criminally investigate or prosecute any alcohol or drug abuse patient.[facility] [place]In the event this information is protected by the Federal Confidentiality of Alcohol and Drug Abuse Patient Records regulations: The Federal rules restrict any use of the information to criminally investigate or prosecute any alcohol or drug abuse patient.[facility] [place]In the event this information is protected by the Federal Confidentiality of Alcohol and Drug Abuse Patient Records regulations: The Federal rules restrict any use of the information to criminally investigate or prosecute any alcohol or drug abuse patient.[facility] [place]In the event this information is protected by the Federal Confidentiality of Alcohol and Drug Abuse Patient Records regulations: The Federal rules restrict any use of the information to criminally investigate or prosecute any alcohol or drug abuse patient.[facility] [place]In the event this information is protected by the Federal Confidentiality of Alcohol and Drug Abuse Patient Records regulations: The Federal rules restrict any use of the information to criminally investigate or prosecute any alcohol or drug abuse patient.[facility] [place]In the event this information is protected by the Federal Confidentiality of Alcohol and Drug Abuse Patient Records regulations: The Federal rules restrict any use of the information to criminally investigate or prosecute any alcohol or drug abuse patient.[facility] [place]In the event this information is protected by the Federal Confidentiality of Alcohol and Drug Abuse Patient Records regulations: The Federal rules restrict any use of the information to criminally investigate or prosecute any alcohol or drug abuse patient.[facility] [place]In the event this information is protected by the Federal Confidentiality of Alcohol and Drug Abuse Patient Records regulations: The Federal rules restrict any use of the information to criminally investigate or prosecute any alcohol or drug abuse patient.[facility] [place]In the event this information is protected by the Federal Confidentiality of Alcohol and Drug Abuse Patient Records regulations: The Federal rules restrict any use of the information to criminally investigate or prosecute any alcohol or drug abuse patient.[facility] [place]In the event this information is protected by the Federal Confidentiality of Alcohol and Drug Abuse Patient Records regulations: The Federal rules restrict any use of the information to criminally investigate or prosecute any alcohol or drug abuse patient.[facility] [place]In the event this information is protected by the Federal Confidentiality of Alcohol and Drug Abuse Patient Records regulations: The Federal rules restrict any use of the information to criminally investigate or prosecute any alcohol or drug abuse patient.[facility] [place]In the event this information is protected by the Federal Confidentiality of Alcohol and Drug Abuse Patient Records regulations: The Federal rules restrict any use of the information to criminally investigate or prosecute any alcohol or drug abuse patient.[facility] [place]In the event this information is protected by the Federal Confidentiality of Alcohol and Drug Abuse Patient Records regulations: The Federal rules restrict any use of the information to criminally investigate or prosecute any alcohol or drug abuse patient.[facility] [place]In the event this information is protected by the Federal Confidentiality of Alcohol and Drug Abuse Patient Records regulations: The Federal rules restrict any use of the information to criminally investigate or prosecute any alcohol or drug abuse patient.[facility] [place]In the event this information is protected by the Federal Confidentiality of Alcohol and Drug Abuse Patient Records regulations: The Federal rules restrict any use of the information to criminally investigate or prosecute any alcohol or drug abuse patient.[facility] [place]In the event this information is protected by the Federal Confidentiality of Alcohol and Drug Abuse Patient Records regulations: The Federal rules restrict any use of the information to criminally investigate or prosecute any alcohol or drug abuse patient.[facility] [place]In the event this information is protected by the Federal Confidentiality of Alcohol and Drug Abuse Patient Records regulations: The Federal rules restrict any use of the information to criminally investigate or prosecute any alcohol or drug abuse patient.[facility] [place]In the event this information is protected by the Federal Confidentiality of Alcohol and Drug Abuse Patient Records regulations: The Federal rules restrict any use of the information to criminally investigate or prosecute any alcohol or drug abuse patient.[facility] [place]In the event this information is protected by the Federal Confidentiality of Alcohol and Drug Abuse Patient Records regulations: The Federal rules restrict any use of the information to criminally investigate or prosecute any alcohol or drug abuse patient.[facility] [place]In the event this information is protected by the Federal Confidentiality of Alcohol and Drug Abuse Patient Records regulations: The Federal rules restrict any use of the information to criminally investigate or prosecute any alcohol or drug abuse patient.[facility] [place]In the event this information is protected by the Federal Confidentiality of Alcohol and Drug Abuse Patient Records regulations: The Federal rules restrict any use of the information to criminally investigate or prosecute any alcohol or drug abuse patient.[facility] [place]In the event this information is protected by the Federal Confidentiality of Alcohol and Drug Abuse Patient Records regulations: The Federal rules restrict any use of the information to criminally investigate or prosecute any alcohol or drug abuse patient.[facility] [place]In the event this information is protected by the Federal Confidentiality of Alcohol and Drug Abuse Patient Records regulations: The Federal rules restrict any use of the information to criminally investigate or prosecute any alcohol or drug abuse patient.[facility] [place]In the event this information is protected by the Federal Confidentiality of Alcohol and Drug Abuse Patient Records regulations: The Federal rules restrict any use of the information to criminally investigate or prosecute any alcohol or drug abuse patient.[facility] [place]In the event this information is protected by the Federal Confidentiality of Alcohol and Drug Abuse Patient Records regulations: The Federal rules restrict any use of the information to criminally investigate or prosecute any alcohol or drug abuse patient.[facility] [place] Reason for Visit (unrecogniz ed section and content) Reason Comments Spirometry Specialty Diagnoses / Procedures Referred By Contac t Referred To Contact [facility] Diagnoses Moderate COPD (chronic obstructive pulmonary disease) (HCC) Procedures SPIROMETRY WITH DILATOR IF OBSTRUCTED BRNCDILAT RSPSE SPMTRY PRE&POST-BRNCDILAT Laith Lew MD [address] [place] [address] Respiratory [place] [address] [place] [address] Referral ID Status Reason Start Date Expiration Date V isits Requested Visits Authorized [id number] Closed Auto-Generate d Referral 05/23/2023 06/21/2024 1 1 Reason Comments Recheck Follow up pneumonia Specialty Diagnoses / Procedures Referred By Contac t Referred To Contact Internal Medicine / INTERNAL MEDICINE Diagnoses Follow-up exam 3 month follow up Procedures OFFICE/OUTPATIENT ESTABLISHED HIGH MDM 40-54 MIN 4C EST Minerva Shaver MD [address] [place] [address] Minerva Shaver MD [address] [place] [address] Referral ID Status Reason Start Date Expiration Date V isits Requested Visits Authorized [id number] Authorized 09/24/2021 05/11/2022 99 99 Reason Comments Results Reason Comments Consult Specialty Diagnoses / Procedures Referred By Contac t Referred To Contact MANAGER INTRANET Diagnoses CONCERN - PROLAPSE Procedures OFFICE/OUTPATIENT ESTABLISHED LOW [facility] 20-29 MIN EST WHI PATIENT Self Lindsay Gongora MD [address] [place] [address] Referral ID Status Reason Start Date Expiration Date Visits Re quested Visits Authorized [id number] Closed 09/21/2021 05/11/2022 1 1 Reason Comments Patient Update Reason Comments Preparations For Surgery Reason Comments Consult Specialty Diagnoses / Procedures Referred By Contact Referred To Contact Anesthesiology / ANESTHESIOLOGY Diagnoses 01/01 no surgery scheduled main Procedures COMPLETE [place] [address] [place] [address] [facility], [facility] [address] [place] [address] Referral ID Status Reason Start Date Expiration Date Visits Re quested Visits Authorized [id number] Closed 12/19/2021 03/19/2022 1 1 Reason Comments Pre-Op Visit Specialty Diagnoses / Procedures Referred By Contac t Referred To Contact Gynecology / UROL WELLNESS NURSE RN Diagnoses pre op teaching Procedures PHYS/QHP TELEPHONE EVALUATION 11-20 MIN TELEVISIT Qiana Pizarro MD [address] [place] [address] Irma Adair APRN.BOLT SORTER [address] [place] [address] x2 Referral ID Status Reason Start Date Expiration Date V isits Requested Visits Authorized [id number] Authorized 12/24/2021 05/11/2022 99 99 Reason Comments Radiology US Specialty Diagnoses / Procedures Referred By Contac t Referred To Contact US IMAGING Diagnoses 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 [place] [address] Us Imaging Referral ID Status Reason Start Date Expiration Date V isits Requested Visits Authorized [id number] Closed Auto-Generate d Referral 12/04/2021 01/03/2023 1 1 Reason Comments Patient Update Surgery instructions Reason Comments Vaginal Problem Specialty Diagnoses / Procedures Referred By Contac t Referred To Contact MANAGER INTRANET / UROL WELLNESS NURSE RN Diagnoses pre op Procedures PHYS/QHP TELEPHONE EVALUATION 5-10 MIN PHYS/QHP TELEPHONE EVALUATION 11-20 MIN PHYS/QHP TELEPHONE EVALUATION 21-30 MIN PROVIDER SPECIALTY PHONE CALL MD Juarez Norton, MD [place] [address] [place] [address] Referral ID Status Reason Start Date Expiration Date Visits Re quested Visits Authorized [id number] Closed 12/07/2021 05/11/2022 1 1 Reason Comments Post Op Pain Reason Onset Date Comments F/U 3 months Immunizations 01/21/2022 Flu vaccination Reason Comments Future Appointment Reason Comments Sore Throat Specialty Diagnoses / Procedures Referred By Contac t Referred To Contact Internal Medicine / INTERNAL MEDICINE Diagnoses sore throat x 3 days Procedures 4C EST Minerva Diggs MD [address] [place] [address] Referral ID Status Reason Start Date Expiration Date Visits Re quested Visits Authorized [id number] Closed 02/22/2022 05/23/2022 1 1 Reason Comments Recheck Follow up Specialty Diagnoses / Procedures Referred By Contac t Referred To Contact Internal Medicine / INTERNAL MEDICINE Diagnoses Follow up pneumonia Procedures 4C Minerva Etienne MD [address] [place] [address] Dianna Ballard APRN.ANITHA [address] [place] [address] Referral ID Status Reason Start Date Expiration Date Visits Re quested Visits Authorized [id number] Closed 03/18/2022 06/16/2022 1 1 Reason Comments [...] 4C EST HOSP/ER FU Self Hodan Stevens APRN.BOLT SORTER [address] [place] [address] Referral ID Status Reason Start Date Expiration Date Visits Re quested Visits Authorized [id number] Closed 04/29/2022 05/11/2022 1 1 Reason Comments Results Reason Comments fax referral to outside Reason Comments Recheck Follow up, review re sults Specialty Diagnoses / Procedures Referred By Contac t Referred To Contact Internal Medicine / INTERNAL MEDICINE Diagnoses Follow-up exam US follow up Procedures OFFICE/OUTPATIENT ESTABLISHED MOD MDM 30-39 MIN 4C Minerva Etienne MD [address] [place] [id number] Dianna Ballard APRN.BOLT SORTER [address] [place] [phone] Referral ID Status Reason Start Date Expiration Date Visits Re quested Visits Authorized [id number] Closed 05/09/2022 05/11/2023 1 1 Reason Comments Patient Update Reason Comments Recheck Follow up, review tricia [place] Reason Comments Consult Hiatal hernia Specialty Diagnoses / Procedures Referred By Contac t Referred To Contact General Surgery / GENERAL SURGERY Diagnoses Hiatal hernia with GERD without esophagitis Procedures CONSULT TO GENERAL SURGERY OFFICE/OUTPATIENT [facility] MDM 60-74 MINUTES Dianna Ballard, RADIATOR CORE TESTER.BOLT SORTER [address] [place] [address] [facility] [address] [place] [address] Referral ID Status Reason Start Date Expiration Date V isits Requested Visits Authorized [id number] Closed PCP Requested Referral 05/17/2022 05/17/2023 1 1 Reason Comments 2 week follow-up Specialty Diagnoses / Procedures Referred By Contac t Referred To Contact Internal Medicine / INTERNAL MEDICINE Diagnoses 2 week follow up Procedures OFFICE/OUTPATIENT ESTABLISHED MOD MDM 30-39 MIN 4C EST Self Minerva Shaver MD [address] [place] [address] Referral ID Status Reason Start Date Expiration Date Visits Re quested Visits Authorized [id number] Closed 06/08/2022 05/11/2023 1 1 Reason Comments [...] 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 [facility]. Specialty Diagnoses / Procedures [facility] Referred To Contact Neurology Diagnoses Cerebrovascular accident (CVA), unspecified mechanism (HCC) Dianna Ballard CNP [address] [place] [address] [facility] Neurology [facility] Referral ID Status Reason Start Date Expiration Date V isits Requested Visits Authorized [id number] Pending Review 08/19/2022 08/19/2023 1 1 Reason Onset Date Comments Medication Refill 09/13/2022 Reason Comments Established Patient Reason Comments Recheck 2 month Reason Comments Recheck Follow up, fever Reason Comments Hospital F/U SOB, hospital follow up-pneumonia, CHF Reason Comments Follow Up 1 week follow up- in a fib, dizziness, leg swelling, SOB, fatigue Specialty Diagnoses / Procedures [facility] Referred To Contact PULMONARY MEDICINE Diagnoses COPD (chronic obstructive pulmonary disease) (HCC) Procedures OFFICE CONSULTATION NEW/ESTAB PATIENT 15 MIN Dianna Ballard APRN.BOLT SORTER [address] [place] [address] [facility]m [facility] [address] [place] [address] Referral ID Status Reason Start Date Expiration Date V isits Requested Visits Authorized [id number] Closed OON/Self Pay Override 01/27/2023 05/11/2023 1 1 Reason Comments New Patient COPD Specialty Diagnoses / Procedures [facility] Referred To Contact PULMONARY MEDICINE Diagnoses COPD (chronic obstructive pulmonary disease) (HCC) Procedures OFFICE CONSULTATION NEW/ESTAB PATIENT 15 MIN Dianna Ballard APRN.BOLT SORTER [address] [place] [address] [facility] [address] [place] [address] Reason Comments Hospital F/U Reason Comments Recheck Follow up Reason Comments Follow Up Specialty Diagnoses / Procedures Referred By Contac t Referred To Contact INTERNAL MEDICINE Diagnoses follow up Procedures OFFICE CONSULTATION NEW/ESTAB PATIENT 15 MIN Юлия Oden MD [address] [place] [address] Intm [facility] [address] [place] [address] Referral ID Status Reason Start Date Expiration Date Visits Requested Visits Authorized [id number] Pending Review OON/Self Pay Override 01/23/2023 07/22/2023 1 1 Reason Comments Medication Clarification Reason Comments Follow Up return to work [place] and needs handicap placard Specialty Diagnoses / Procedures Referred By Contac t Referred To Contact FAMILY MEDICINE Diagnoses f/u Procedures f/u Minerva Shaver MD [address] [place] [address] [facility] [address] [place] [address] Referral ID Status Reason Start Date Expiration Date Visits Requested Visits Authorized [id number] Pending Review OON/Self Pay Override 02/10/2023 08/09/2023 99 [address] Specialty Diagnoses / Procedures Referred By Contac t Referred To Contact CT IMAGING Diagnoses Hiatal hernia with GERD without esophagitis Personal history of colonic polyps Procedures CT ABD/PEL WO IVCON CT ABD & PELVIS W/O CONTRAST Katheryn Stokes MD [address] [address] [place] [address] Referral ID Status Reason Start Date Expiration Date V isits Requested Visits Authorized [id number] Closed Auto-Generate d Referral 05/24/2022 05/11/2023 2 2 Specialty Diagnoses / Procedures Referred By Contac t Referred To Contact CT IMAGING Diagnoses Left lower quadrant abdominal pain Right lower quadrant abdominal tenderness without rebound tenderness Bowel habit changes Blood in stool Procedures CT ABD/PEL W IVCON CT ABD & PELVIS W/CONTRAST Dianna Ballard APRN.CNP [address] [place] [address] [place] [id number] Referral ID Status Reason Start Date Expiration Date V isits Requested Visits Authorized [id number] Closed Auto-Generate d Referral 12/26/2022 01/25/2023 1 [...] Referred By Contac t Referred To Contact [facility] Diagnoses xray Procedures XRAY EXAM OF RIBS/CHEST TC Minerva Shaver MD [address] [place] [address] [place] [address] Referral ID Status Reason Start Date Expiration Date V isits Requested Visits Authorized [id number] Closed OON/Self Pay Override 01/23/2023 05/11/2023 1 1 Specialty Diagnoses / Procedures Referred By Contac t Referred To Contact Radiology / RADIO [facility]AL [facility] Diagnoses Fever, unspecified fever cause SOB (shortness of breath) ML Procedures RADIOLOGIC EXAM CHEST 2 VIEWS XR CHEST Minerva Shaver MD [address] [place] [address] [place] [phone] Referral ID Status Reason Start Date Expiration Date Visits Re quested Visits Authorized [id number] Closed 05/15/2022 05/11/2023 1 1 Specialty Diagnoses / Procedures Referred By Contac t Referred To Contact Radiology / RADIO GENERAL [facility] Diagnoses ML Procedures XR CHEST Minerva Shaver MD [address] [place] [address] Radio [facility] [address] [place] [address] Referral ID Status Reason Start Date Expiration Date Visits Re quested Visits Authorized [id number] Closed 04/18/2022 05/11/2022 1 1 Reason Comments Forms Reason Comments 08/18/2023 EGD HART Reason Comments Medicare Wellness Exam Specialty Diagnoses / Procedures [facility] Referred To Contact Diagnoses Persistent atrial fibrillation Procedures CT CARDIAC PULMONARY VENOGRAM CHG CT HEART CONTRAST EVAL CARDIAC STRUCTURE&MORPH Alli Hernandez MD [address] [facility] [address] [place] [address] Referral ID Status Reason Start Date Expiration Date Visits Re quested Visits Authorized [id number] Closed 03/08/2024 04/02/2025 1 1 Reason Comments [...] W/O Laith Bolden MD [address] [place] [address] Phone: tel: fax: [place] [address] Referral ID Status Reason Start Date Expiration Date V isits Requested Visits Authorized [id number] Closed Auto-Generate d Referral 07/06/2024 05/11/2025 1 1 Reason Comments Recheck Urgent Care follow u p Reason Comments Recheck 1 week follow up Reason Onset Date Comments ACM JOSÉ MIGUEL RN 08/05/2024 Chart review review per request of payor Reason Onset Date Comments Refill Request 08/06/2024 Reason Onset Date Comments Population Health Navigation Outreach 08/11/2024 [employer] [place] Reason Comments Dizziness Vertigo x 6 days Reason Comments note for work Reason Comments Received Outside Medical Records Reason Onset Date Comments Refill Request 10/20/2024 Reason Comments Recheck Hospital follow up Reason Onset Date Comments Population Health Navigation Outreach 11/03/2024 [employer] [place] Reason Onset Date Comments Population Health Navigation Outreach 12/03/2024 [employer] [place] Reason Comments Recheck 6 week follow up Reason Comments Recheck 4 week follow up Care Teams (unrecognized sec tion and content) Firer Automatic Stoker Relationship Specialty Start Date End Date Minerva Shaver MD [address] [place] [address] PCP - General Internal Medicine 09/25/15 Fred, Phoenix S Specialty Lens Shaper Grinder Cardiology 03/19/13 Firer Automatic Stoker Relationship Specialty Start Date End Date Minerva Shaver MD [address] [facility] [place] [address] PCP - General Internal Medicine 09/25/15 Fred, Maxim S Specialty Lens Shaper Grinder Cardiology 03/19/13 Firer Automatic Stoker Relationship Specialty Start Date End Date Minerva Shaver MD [address] [facility] [place] [address] PCP - General Internal Medicine 09/25/15 Fred, Phoenix S Specialty Lens Shaper Grinder Cardiology 03/19/13 Firer Automatic Stoker Relationship Specialty Start Date End Date Minerva Shaver MD [address] [facility] [place] [address] PCP - General Internal Medicine 09/25/15 Fred, Maxim S Specialty Lens Shaper Grinder Cardiology 03/19/13 Firer Automatic Stoker Relationship Specialty Start Date End Date Minerva Shaver MD [address] [facility] [place] [address] PCP - General Internal Medicine 09/25/15 Fred, Phoenix S Specialty Lens Shaper Grinder Cardiology 03/19/13 Firer Automatic Stoker Relationship Specialty Start Date End Date Minerva Shaver MD [address] [facility] [place] [address] PCP - General Internal Medicine 09/25/15 Fred, Phoenix S Specialty Lens Shaper Grinder Cardiology 03/19/13 Firer Automatic Stoker Relationship Specialty Start Date End Date Minerva Shaver MD [address] [facility] [place] [address] PCP - General Internal Medicine 09/25/15 Fred, Maxim S Specialty Lens Shaper Grinder Cardiology 03/19/13 Firer Automatic Stoker Relationship Specialty Start Date End Date Minerva Shaver MD [address] [facility] [place] [address] PCP - General Internal Medicine 09/25/15 Fred, Phoenix S Specialty Lens Shaper Grinder Cardiology 03/19/13 Firer Automatic Stoker Relationship Specialty Start Date End Date Mienrva Shaver MD [address] [facility] [place] [address] PCP - General Internal Medicine 09/25/15 Fred, Phoenix S Specialty Lens Shaper Grinder Cardiology 03/19/13 Firer Automatic Stoker Relationship Specialty Start Date End Date Minerva Shaver MD [address] [facility] [place] [address] PCP - General Internal Medicine 09/25/15 Fred, Maxim S Specialty Lens Shaper Grinder Cardiology 03/19/13 Firer Automatic Stoker Relationship Specialty Start Date End Date Minerva Shaver MD [address] [facility] [place] [address] PCP - General Internal Medicine 09/25/15 Fred, Phoenix S Specialty Lens Shaper Grinder Cardiology 03/19/13 Firer Automatic Stoker Relationship Specialty Start Date End Date Minerva Shaver MD [address] [facility] [place] [address] PCP - General Internal Medicine 09/25/15 Fred, Maxim S Specialty Lens Shaper Grinder Cardiology 03/19/13 Firer Automatic Stoker Relationship Specialty Start Date End Date Minerva Shaver MD [address] [facility] [place] [address] PCP - General Internal Medicine 09/25/15 Fred, Phoenix S Specialty Lens Shaper Grinder Cardiology 03/19/13 Firer Automatic Stoker Relationship Specialty Start Date End Date Minerva Shaver MD [address] [facility] [place] [address] PCP - General Internal Medicine 09/25/15 Fred, Phoenix S Specialty Lens Shaper Grinder Cardiology 03/19/13 Firer Automatic Stoker Relationship Specialty Start Date End Date Minerva Shaver MD [address] [facility] [place] [address] PCP - General Internal Medicine 09/25/15 Fred, Maxim S Specialty Lens Shaper Grinder Cardiology 03/19/13 Firer Automatic Stoker Relationship Specialty Start Date End Date Minerva Shaver MD [address] [facility] [place] [address] PCP - General Internal Medicine 09/25/15 Fred, Maxim S Specialty Lens Shaper Grinder Cardiology 03/19/13 Firer Automatic Stoker Relationship Specialty Start Date End Date Minerva Shaver MD [address] [facility] [place] [address] PCP - General Internal Medicine 09/25/15 Fred, Maxim S Specialty Lens Shaper Grinder Cardiology 03/19/13 Firer Automatic Stoker Relationship Specialty Start Date End Date Minerva Shaver MD [address] [facility] [place] [address] PCP - General Internal Medicine 09/25/15 Fred, Phoenix S Specialty Lens Shaper Grinder Cardiology 03/19/13 Firer Automatic Stoker Relationship Specialty Start Date End Date Minerva Shaver MD [address] [facility] [place] [address] PCP - General Internal Medicine 09/25/15 Fred, Maxim S Specialty Lens Shaper Grinder Cardiology 03/19/13 Firer Automatic Stoker Relationship Specialty Start Date End Date Minerva Shaver MD [address] [facility] [place] [address] PCP - General Internal Medicine 09/25/15 Fred, Maxim S Specialty Lens Shaper Grinder Cardiology 03/19/13 Firer Automatic Stoker Relationship Specialty Start Date End Date Minerva Shaver MD [address] [facility] [place] [address] PCP - General Internal Medicine 09/25/15 Fred, Phoenix S Specialty Lens Shaper Grinder Cardiology 03/19/13 Firer Automatic Stoker Relationship Specialty Start Date End Date Minerva Shaver MD [address] [facility] [place] [address] PCP - General Internal Medicine 09/25/15 Fred, Maxim S Specialty Lens Shaper Grinder Cardiology 03/19/13 Firer Automatic Stoker Relationship Specialty Start Date End Date Minerva Shaver MD [address] [facility] [place] [address] PCP - General Internal Medicine 09/25/15 Fred, Phoenix S Specialty Lens Shaper Grinder Cardiology 03/19/13 Firer Automatic Stoker Relationship Specialty Start Date End Date Minerva Shaver MD [address] [facility] [place] [address] PCP - General Internal Medicine 09/25/15 Fred, Maxim S Specialty Lens Shaper Grinder Cardiology 03/19/13 Firer Automatic Stoker Relationship Specialty Start Date End Date Minerva Shaver MD [address] [facility] [place] [address] PCP - General Internal Medicine 09/25/15 Fred, Maxim S Specialty Lens Shaper Grinder Cardiology 03/19/13 Firer Automatic Stoker Relationship Specialty Start Date End Date Minerva Shaver MD [address] [facility] [place] [address] PCP - General Internal Medicine 09/25/15 Fred, Phoenix S Specialty Lens Shaper Grinder Cardiology 03/19/13 Team Status: Active Member Role [...] Sara Hilton DO Attending Provider, Emergency P rovider Active Team Status: Inactive Member Role Status Dates Dr. Minerva Shaver MD Primary Care Provider Active Hodan Stevens WORSHIP LEADER, WORSHIP LEADER-C Attending Provider, Referring Pr ovider Active Team Status: Inactive Member Role Status Dates Dr. Minerva Shaver MD Primary Care Provider Active Dr. Maxim Ibarra MD Attending Provider, Referring Pro vider Active Nagi Sharma WORSHIP LEADER, WORSHIP LEADER-C Other Provider Active Team Status: Inactive Member Role Status Dates Dr. Minerva Shaver MD Primary Care Provider, Referring Provider Active Caterina Bro WORSHIP LEADER, WORSHIP LEADER-C Attending Provider Active Team Status: Inactive Member Role Status Dates Dr. Minerva Shaver MD Primary Care Provider Active Caterina Bro WORSHIP LEADER, WORSHIP LEADER-C Attending Provider Active Team Status: Active Member [...] MD Primary Care Provider Active Caterina Bro WORSHIP LEADER, WORSHIP LEADER-C Attending Provider, Referring P rovider Active Team [...] MD Primary Care Provider Active Caterina Bro WORSHIP LEADER, WORSHIP LEADER-C Attending Provider, Andrew rose Active Team Status: Inactive Member Role Status Dates Dr. Minerva Shaver MD Primary Care Provider Active Dr. Wilian Dempsey MD Emergency Provider Active Dr. Farhad Hall DO Admit Provider, Attending Provid er Active Firer Automatic Stoker Relationship Specialty Start Date End Date Minerva Shaver MD [address] [facility] [address] [place] [address] PCP - General Internal Medicine 08/19/22 Team Status: Active Member Role Status Dates Dr. Minerva Shaver MD Primary Care Provider Active Dr. Mike Lynne MD Attending Provider, Refe rring Provider Active Firer Automatic Stoker Relationship Specialty Start Date End Date Minerva Shaver MD [address] [facility] [place] [address] PCP - General Internal Medicine 09/25/15 Maxim Ibarra Specialty Lens Shaper Grinder Cardiology 03/19/13 Firer Automatic Stoker Relationship Specialty Start Date End Date Minerva Shaver MD [address] [place] [address] PCP - General Internal Medicine 08/19/22 Firer Automatic Stoker Relationship Specialty Start Date End Date Minerva Shaver MD [address] [facility] [address] [place] [address] PCP - General Internal Medicine 08/19/22 Firer Automatic Stoker Relationship Specialty Start Date End Date Minerva Shaver MD [address] [facility] [place] [address] PCP - General Internal Medicine 09/25/15 Fred, Maxim S Specialty Lens Shaper Grinder Cardiology 03/19/13 Team Status: Inactive Member Role Status Dates Dr. Minerva Shaver MD Primary Care Provider Active Dr. Perlita Flowers MD Attending Provider, Referring Prov ider Active Firer Automatic Stoker Relationship Specialty Start Date End Date Minerva Shaver MD [address] [facility] [place] [address] PCP - General Internal Medicine 09/25/15 Fred, Phoenix S Specialty Lens Shaper Grinder Cardiology 03/19/13 Firer Automatic Stoker Relationship Specialty Start Date End Date Minerva Shaver MD [address] [place] [address] PCP - General Internal Medicine 09/25/15 Fred, Maxim S Specialty Lens Shaper Grinder Cardiology 03/19/13 Firer Automatic Stoker Relationship Specialty Start Date End Date Minerva Shaver MD [address] [place] [address] PCP - General Internal Medicine 09/25/15 Fred, Phoenix S Specialty Lens Shaper Grinder Cardiology 03/19/13 Firer Automatic Stoker Relationship Specialty Start Date End Date Minerva Shaver MD [address] [place] [address] PCP - General Internal Medicine 09/25/15 Fred, Maxim S Specialty Lens Shaper Grinder Cardiology 03/19/13 Team Status: Active Member Role Status Dates Dr. Minerva Shaver MD Primary Care Provider Active Dr. Sohan Shelton MD Emergency Provider Active Dr. Stephanie Scales , DO Admit Provider, Attending Provide r Active Firer Automatic Stoker Relationship Specialty Start Date End Date Minerva Shaver MD [address] [place], [place] [address] PCP - General Internal Medicine 09/25/15 Fred, Maxim S Specialty Lens Shaper Grinder Cardiology 03/19/13 Team Status: Active Member Role Status Dates Dr. Minerva Shaver MD Primary Care Provider Active Dr. Dena Workman MD Attending Provider Active Team Status: Active Member Role Status Dates Dr. Minerva Shaver MD Primary Care Provider Active Dr. Sohan Shelton MD Emergency Provider Active Dr. Stephanie Scales , DO Admit Provider, Other Provider Ac tive Dr. Josep Vasquez MD Attending Provider, Other Provid er Active Team Status: Inactive Member Role Status Dates Dr. Minerva Shaver MD Primary Care Provider Active Dr. Sohan Shelton MD Emergency Provider Active Dr. Stephanie Scales , DO Admit Provider, Other Provider Ac tive Dr. Josep Vasquez MD Attending Provider Active Firer Automatic Stoker Relationship Specialty Start Date End Date Minerva Shaver MD [address] [place], [place] [address] PCP - General Internal Medicine 09/25/15 Fred, Phoenix S Specialty Lens Shaper Grinder Cardiology 03/19/13 Firer Automatic Stoker Relationship Specialty Start Date End Date Minerva Shaver MD [address] [place], [place] [address] PCP - General Internal Medicine 09/25/15 Fred, Phoenix S Specialty Lens Shaper Grinder Cardiology 03/19/13 Firer Automatic Stoker Relationship Specialty Start Date End Date Minerva Shaver MD [address] [facility] [place] [address] PCP - General Internal Medicine 09/25/15 Fred, Maxim S Specialty Lens Shaper Grinder Cardiology 03/19/13 Firer Automatic Stoker Relationship Specialty Start Date End Date Minerva Shaver MD [address] [place] [address] PCP - General Internal Medicine 09/25/15 Fred, Maxim S Specialty Lens Shaper Grinder Cardiology 03/19/13 Firer Automatic Stoker Relationship Specialty Start Date End Date Minerva Shaver MD [address] [place] [address] PCP - General Internal Medicine 09/25/15 Fred, Maxim S Specialty Lens Shaper Grinder Cardiology 03/19/13 Firer Automatic Stoker Relationship Specialty Start Date End Date Minerva Shaver MD [address] [place] [address] PCP - General Internal Medicine 09/25/15 Fred, Phoenix S Specialty Lens Shaper Grinder Cardiology 03/19/13 Team Status: Inactive Member Role Status Dates Dr. Minerva Shaver MD Primary Care Provider Active DIANNA OLDER , WORSHIP LEADER-C Attending Provider, Referring Provide r Active Firer Automatic Stoker Relationship Specialty Start Date End Date Minerva Shaver MD [address] [facility] [place] [address] PCP - General Internal Medicine 09/25/15 Maxim Ibarra MD Specialty Lens Shaper Grinder Cardiology 03/19/13 Firer Automatic Stoker Relationship Specialty Start Date End Date Minerva Shaver MD [address] [place] [address] PCP - General Internal Medicine 09/25/15 Maxim Ibarra MD Specialty Lens Shaper Grinder Cardiology 03/19/13 Firer Automatic Stoker Relationship Specialty Start Date End Date Minerva Shaver MD [address] [facility] [place] [address] PCP - General Internal Medicine 09/25/15 Maxim Ibarra MD Specialty Lens Shaper Grinder Cardiology 03/19/13 Firer Automatic Stoker Relationship Specialty Start Date End Date Minerva Shaver MD [address] [facility] [place] [address] PCP - General Internal Medicine 09/25/15 Maxim Ibarra MD Specialty Lens Shaper Grinder Cardiology 03/19/13 Firer Automatic Stoker Relationship Specialty Start Date End Date Minerva Shaver MD [address] [facility] [place] [address] PCP - General Internal Medicine 09/25/15 Maxim Ibarra MD Specialty Lens Shaper Grinder Cardiology 03/19/13 Firer Automatic Stoker Relationship Specialty Start Date End Date Minerva Shaver MD [address] [facility] [place] [address] PCP - General Internal Medicine 09/25/15 Mxaim Ibarra MD Specialty Lens Shaper Grinder Cardiology 03/19/13 Firer Automatic Stoker Relationship Specialty Start Date End Date Minerva Shaver MD [address] [facility] [place] [address] PCP - General Internal Medicine 09/25/15 Maxim Ibarra MD Specialty Lens Shaper Grinder Cardiology 03/19/13 Firer Automatic Stoker Relationship Specialty Start Date End Date Minerva Shaver MD [address] [facility] [place] [address] PCP - General Internal Medicine 09/25/15 Maxim Ibarra MD Specialty Lens Shaper Grinder Cardiology 03/19/13 Firer Automatic Stoker Relationship Specialty Start Date End Date Minerva Shaver MD [address] [facility] [place] [address] PCP - General Internal Medicine 09/25/15 Maxim Ibarra MD Specialty Lens Shaper Grinder Cardiology 03/19/13 Firer Automatic Stoker Relationship Specialty Start Date End Date Minerva Shaver MD [address] [place] [address] PCP - General Internal Medicine 09/25/15 Maxim Ibarra MD Specialty Lens Shaper Grinder Cardiology 03/19/13 Team Status: Inactive Member Role Status Dates Dr. Minerva Shaver MD Primary Care Provider, Referring Provider Active Nagi Sharma WORSHIP LEADER, WORSHIP LEADER-C Attending Provider Active Firer Automatic Stoker Relationship Specialty Start Date End Date Minerva Shaver MD [address] [place] [address] PCP - General Internal Medicine 09/25/15 Maxim Ibarra MD Specialty Lens Shaper Grinder Cardiology 03/19/13 Team Status: Inactive Member Role Status Dates Dr. Minerva Shaver MD Primary Care Provider Active Susan DURAN, PA Attending Provider, Referr ing Provider Active Firer Automatic Stoker Relationship Specialty Start Date End Date Minerva Shaver MD [address] [place] [address] PCP - General Internal Medicine 09/25/15 Maxim Ibarra MD Specialty Lens Shaper Grinder Cardiology 03/19/13 Team Status: Active Member Role Status Dates Dr. Minerva Shaver MD Primary Care Provider Active Dr. Maxim Ibarra MD Attending Provider, Other Provide r Active Team Status: Active Member Role Status Dates Dr. Minerva Shaver MD Primary Care Provider Active Dr. Maxim Ibarra MD Referring Provider, Other Provide r Active Dr. Varun Montes DO Attending Provider Active Firer Automatic Stoker Relationship Specialty Start Date End Date Minerva Shaver MD [address] [place] [address] PCP - General Internal Medicine 09/25/15 Maxim Ibarra MD Specialty Lens Shaper Grinder Cardiology 03/19/13 Team Status: Inactive Member Role Status Dates Dr. Minerva Shaver MD Primary Care Provider, Referring Provider Active Susan Mac PA, PA Attending Provider Active Team Status: Inactive Member Role Status Dates Dr. Minerva Shaver MD Primary Care Provider, Referring Provider Active Mata Dailey MD Attending Provider Active Team Status: Inactive Member Role Status Dates Dr. Minerva Shaver MD Primary Care Provider Active Dr. Mine Shaffer MD Emergency Provider Active Firer Automatic Stoker Relationship Specialty Start Date End Date Minerva Shaver MD [address] [place] [address] PCP - General Internal Medicine 09/25/15 Maxim Ibarra MD Specialty Lens Shaper Grinder Cardiology 03/19/13 Firer Automatic Stoker Relationship Specialty Start Date End Date Minerva Shaver MD [address] [place] [address] PCP - General Internal Medicine 09/25/15 Maxim Ibarra MD Specialty Lens Shaper Grinder Cardiology 03/19/13 Firer Automatic Stoker Relationship Specialty Start Date End Date Minerva Shaver MD [address] [place] [address] PCP - General Internal Medicine 09/25/15 Maxim Ibarra MD Specialty Lens Shaper Grinder Cardiology 03/19/13 Firer Automatic Stoker Relationship Specialty Start Date End Date Minerva Shaver MD [address] [place] [address] PCP - General Internal Medicine 09/25/15 Maxim Ibarra MD Specialty Lens Shaper Grinder Cardiology 03/19/13 Firer Automatic Stoker Relationship Specialty Start Date End Date Minerva Shaver MD [address] [place] [address] PCP - General Internal Medicine 09/25/15 Maxim Ibarra MD Specialty Lens Shaper Grinder Cardiology 03/19/13 Firer Automatic Stoker Relationship Specialty Start Date End Date Minerva Shaver MD [address] [place] [address] PCP - General Internal Medicine 09/25/15 Maxim Ibarra MD Specialty Lens Shaper Grinder Cardiology 03/19/13 Firer Automatic Stoker Relationship Specialty Start Date End Date Minerva Shaver MD [address] [place] [address] PCP - General Internal Medicine 09/25/15 Maxim Ibarra MD Specialty Lens Shaper Grinder Cardiology 03/19/13 Firer Automatic Stoker Relationship Specialty Start Date End Date Minerva Shaver MD [address] [place] [address] PCP - General Internal Medicine 09/25/15 Maxim Ibarra MD Specialty Lens Shaper Grinder Cardiology 03/19/13 Firer Automatic Stoker Relationship Specialty Start Date End Date Minerva Shaver MD [address] [facility] [place] [address] PCP - General Internal Medicine 09/25/15 Maxim Ibarra MD Specialty Lens Shaper Grinder Cardiology 03/19/13 Firer Automatic Stoker Relationship Specialty Start Date End Date Minerva Shaver MD [address] [place] [address] PCP - General Internal Medicine 09/25/15 Maxim Ibarra MD Specialty Lens Shaper Grinder Cardiology 03/19/13 Firer Automatic Stoker Relationship Specialty Start Date End Date Minerva Shaver MD [address] [place] [address] PCP - General Internal Medicine 09/25/15 Maxim Ibarra MD Specialty Lens Shaper Grinder Cardiology 03/19/13 Firer Automatic Stoker Relationship Specialty Start Date End Date Minerva Shaver MD [address] [place] [address] PCP - General Internal Medicine 09/25/15 Maxim Ibarra MD Specialty Lens Shaper Grinder Cardiology 03/19/13 Nikki Vincent RN Manager Cash Internal Medicine 12/25/20 02/28/21 Firer Automatic Stoker Relationship Specialty Start Date End Date Minerva Shaver MD [address] [facility] [place] [address] PCP - General Internal Medicine 09/25/15 Maxim Ibarra MD Specialty Lens Shaper Grinder Cardiology 03/19/13 Firer Automatic Stoker Relationship Specialty Start Date End Date Minerva Shaver MD [address] [place] [address] PCP - General Internal Medicine 09/25/15 Maxim Ibarra MD Specialty Lens Shaper Grinder Cardiology 03/19/13 Firer Automatic Stoker Relationship Specialty Start Date End Date Minerva Shaver MD [address] [facility] [place] [address] PCP - General Internal Medicine 09/25/15 Maxim Ibarra MD Specialty Lens Shaper Grinder Cardiology 03/19/13 Firer Automatic Stoker Relationship Specialty Start Date End Date Minerva Shaver MD [address] [place] [address] PCP - General Internal Medicine 09/25/15 Maxim Ibarra MD Specialty Lens Shaper Grinder Cardiology 03/19/13 Firer Automatic Stoker Relationship Specialty Start Date End Date Minerva Shaver MD [address] [place] [address] PCP - General Internal Medicine 09/25/15 Maxim Ibarra MD Specialty Lens Shaper Grinder Cardiology 03/19/13 Firer Automatic Stoker Relationship Specialty Start Date End Date Minerva Shaver MD [address] [place] [address] PCP - General Internal Medicine 03/08/24 Maxim Ibarra MD [address] [place] [address] PCP - Referring 1 Cardiovascular Disease 04/13/24 Laith Montes MD [address] [place] [address] PCP - Referring 2 Pulmonary Disease 04/13/24 Firer Automatic Stoker Relationship Specialty Start Date End Date Minerva Shaver MD [address] [place] [address] PCP - General Internal Medicine 03/08/24 Maxim Ibarra MD [address] [place] [address] PCP - Referring 1 Cardiovascular Disease 04/13/24 Laith Montes MD [address] [place] [address] PCP - Referring 2 Pulmonary Disease 04/13/24 Firer Automatic Stoker Relationship Specialty Start Date End Date Minerva Shaver MD [address] [place] [address] PCP - General Internal Medicine 03/08/24 Maxim Ibarra MD [address] [place] [address] PCP - Referring 1 Cardiovascular Disease 04/13/24 Laith Montes MD [address] [place] [address] PCP - Referring 2 Pulmonary Disease 04/13/24 Firer Automatic Stoker Relationship Specialty Start Date End Date Minerva Shaver MD [address] [place] [address] PCP - General Internal Medicine 09/25/15 Maxim Ibarra MD Specialty Lens Shaper Grinder Cardiology 03/19/13 Jennifer Rudd PA-C [address] [place] [address] Fast Food Manager Family Medicine 04/18/24 Dianna Ballard APRN.CNP [address] [place] [address] Fast Food Manager Internal Medicine 04/18/24 Fco Vidales PA-C [address] [place] [address] Fast Food Manager Family Medicine 04/18/24 Firer Automatic Stoker Relationship Specialty Start Date End Date Minerva Shaver MD [address] [place] [address] PCP - General Internal Medicine 09/25/15 Maxim Ibarra MD Specialty Lens Shaper Grinder Cardiology 03/19/13 Jennifer Rudd PA-C [address] [place] [address] Fast Food Manager Family Medicine 04/18/24 Dianna Ballard APRN.BOLT SORTER [address] [place] [address] Fast Food Manager Internal Medicine 04/18/24 Fco Vidales PA-C [address] [place] [address] Fast Food Manager Family Medicine 04/18/24 Firer Automatic Stoker Relationship Specialty Start Date End Date Minerva Shaver MD [address] [place] [address] PCP - General Internal Medicine 09/25/15 Maxim Ibarra MD Specialty Lens Shaper Grinder Cardiology 03/19/13 Jennifer Rudd PA-C [address] [place] [address] Fast Food Manager Family Medicine 04/18/24 Dianna Ballard APRN.BOLT SORTER [address] [place] [address] Fast Food Manager Internal Medicine 04/18/24 Fco Vidales PA-C [address] [facility] [place] [address] Fast Food Manager Family Medicine 04/18/24 Firer Automatic Stoker Relationship Specialty Start Date End Date Minerva Shaver MD [address] [place] [address] PCP - General Internal Medicine 09/25/15 Maxim Ibarra MD Specialty Lens Shaper Grinder Cardiology 03/19/13 Jennifer Rudd PA-C [address] [place] [address] Fast Food Manager Family Medicine 04/18/24 Dianna Ballard APRN.BOLT SORTER [address] [place] [address] Fast Food Manager Internal Medicine 04/18/24 Fco Vidales PA-C [address] [place] [address] Fast Food Manager Family Medicine 04/18/24 Firer Automatic Stoker Relationship Specialty Start Date End Date Minerva Shaver MD [address] [place] [address] PCP - General Internal Medicine 09/25/15 Maxim Ibarra MD Specialty Lens Shaper Grinder Cardiology 03/19/13 Jennifer Rudd PA-C [address] [place] [address] Fast Food Manager Family Medicine 04/18/24 Dianna Ballard APRN.BOLT SORTER [address] [place] [address] Fast Food Manager Internal Medicine 04/18/24 Fco Vidales PA-C [address] [place] [address] Fast Food Manager Family Medicine 04/18/24 Firer Automatic Stoker Relationship Specialty Start Date End Date Minerva Shaver MD [address] [place] [address] PCP - General Internal Medicine 09/25/15 Maxim Ibarra MD Specialty Lens Shaper Grinder Cardiology 03/19/13 Jennifer Rudd PA-C [address] [place] [address] Fast Food Manager Family Medicine 04/18/24 Dianna Ballard APRN.BOLT SORTER [address] [place] [address] Fast Food Manager Internal Medicine 04/18/24 Fco Vidales PA-C [address] [place] [address] Fast Food Manager Family Medicine 04/18/24 Firer Automatic Stoker Relationship Specialty Start Date End Date Minerva Shaver MD [address] [place] [address] PCP - General Internal Medicine 09/25/15 Maxim Ibarra MD Specialty Lens Shaper Grinder Cardiology 03/19/13 Jennifer Rudd PA-C [address] [place] [address] Fast Food Manager Family Medicine 04/18/24 Dianna Ballard APRN.BOLT SORTER [address] [place] [address] Fast Food Manager Internal Medicine 04/18/24 Fco Vidales PA-C [address] [place] [address] Fast Food Manager Family [facility] 04/18/24 Firer Automatic Stoker Relationship Specialty Start Date End Date Minerva Shaver MD [address] [place] [address] PCP - General Internal Medicine 09/25/15 Maxim Ibarra MD Specialty Lens Shaper Grinder Cardiology 03/19/13 Jennifer Rudd PA-C [address] [place] [address] Fast Food Manager Family Medicine 04/18/24 Dianna Ballard APRN.CNP [address] [place] [address] Fast Food Manager Internal Medicine 04/18/24 Fco Vidales PA-C [address] [place] [address] [facility] Firer Automatic Stoker Relationship Specialty Start Date End Date Minerva Shaver MD [address] [place] [address] PCP - General Internal Medicine 09/25/15 Maxim Ibarra MD Specialty Lens Shaper Grinder Cardiology 03/19/13 Jennifer Rudd PA-C [address] [place] [address] Fast Food Manager Family Medicine 04/18/24 Dianna Ballard APRN.BOLT SORTER [address] [facility], [place] [address] [facility] Internal Medicine 04/18/24 Fco Vidales PA-C [address] [facility], [place] [id number] [facility] 04/18/24 Firer Automatic Stoker Relationship Specialty Start Date End Date Minerva Shaver MD [address] [facility], [place] [address] PCP - General Internal Medicine 09/25/15 Maxim Ibarra MD Specialty Lens Shaper Grinder Cardiology 03/19/13 Dianna Ballard APRN.BOLT SORTER [address] [facility], [place] [address] [facility] Internal Medicine 04/18/24 Team Status: Active [...] 19, 2024 End: April 19, 2024 Nagi Sharma WORSHIP LEADER, WORSHIP LEADER-C Attending Provider Active S tart: April 19, 2024 End: April 19, 2024 Team Status: Inactive Member Role Status Dates Dr. Minerva Shaver MD Primary Care Provider Active Start: April 19, 2024 End: April 19, 2024 Nagi Sharma WORSHIP LEADER, WORSHIP LEADER-C Attending Provider Active S tart: April 19, 2024 End: April 19, 2024 Nagi Sharma WORSHIP LEADER, WORSHIP LEADER-C Referring Provider Active S tart: April 19, 2024 End: April 19, 2024 Team Status: Inactive Member Role Status Dates Dr. Minerva Shaver MD Primary Care Provider Active Start: April 28, 2024 End: April 28, 2024 Dr. Minerva Shaver MD Referring Provider Active Start: April 28, 2024 End: April 28, 2024 Nagi Sharma WORSHIP LEADER, WORSHIP LEADER-C Attending Provider Active S tart: April 28, [...] 27, 2024 End: July 27, 2024 Nagi Sharma WORSHIP LEADER, WORSHIP LEADER-C Attending Provider Active S tart: July 27, [...] July 29, 2024 End: July 29, 2024 Firer Automatic Stoker Relationship Specialty Start Date End Date Minerva Shaver MD [address] [facility] [place] [address] PCP - General Internal Medicine 09/25/15 Maxim Ibarra MD Specialty Lens Shaper Grinder Cardiology 03/19/13 Dianna Ballard APRN.BOLT SORTER [address] [place] [address] Fast Food Manager Internal Medicine 04/18/24 Firer Automatic Stoker Relationship Specialty Start Date End Date Minerva Shaver MD [address] [facility] [place] [address] PCP - General Internal Medicine 09/25/15 Maxim Ibarra MD Specialty Lens Shaper Grinder Cardiology 03/19/13 Dianna Ballard APRN.BOLT SORTER [address] [place] [address] Fast Food Manager Internal Medicine 04/18/24 Firer Automatic Stoker Relationship Specialty Start Date End Date Minerva Shaver MD [address] [place] [address] PCP - General Internal Medicine 09/25/15 Maxim Ibarra MD Specialty Lens Shaper Grinder Cardiology 03/19/13 Dianna Ballard APRN.BOLT SORTER [address] [place], [place] [address] Fast Food Manager Internal Medicine 04/18/24 Firer Automatic Stoker Relationship Specialty Start Date End Date Minerva Shaver MD [address] [place], [place] [address] PCP - General Internal Medicine 09/25/15 Maxim Ibarra MD Specialty Lens Shaper Grinder Cardiology 03/19/13 Jennifer Rudd PA-C [address] [place] [address] Fast Food Manager Family Medicine 04/18/24 08/01/24 Dianna Ballard APRN.BOLT SORTER [address] [place], [place] [address] Fast Food Manager Internal Medicine 04/18/24 Fco Vidales PA-C [address] [place], [place] [address] Fast Food Manager Family Medicine 04/18/24 08/01/24 Team Status: Inactive [...] August 17, 2024 End: August 17, 2024 Ada Heide , PA Attending Provider Active Star t: August 17, 2024 End: August 17, 2024 Team Status: Inactive Member Role Status Dates Dr. Minerva Shaver MD Primary Care Provider Active Start: August 17, 2024 End: August 17, 2024 Ada Jaeger , PA Attending Provider Active Star t: August 17, 2024 End: August 17, 2024 Ada Jaeger , PA Referring Provider Active Star t: August 17, 2024 End: August 17, 2024 Team Status: Inactive Member Role Status Dates Dr. Minerva Shaver MD Primary Care Provider Active Start: September 15, 2024 End: September 15, 2024 Ada Jaeger , PA Attending Provider Active Star t: September 15, 2024 End: September 15, 2024 Ada Jaeger , PA Referring Provider Active Star t: September 15, 2024 End: September 15, 2024 Team Status: Active Member Role Status Dates Dr. Minerva Shaver MD Primary Care Provider Active Start: September 15, 2024 RENEE Bojorquez Referring Provider Active Star t: September 15, 2024 Ada Jaeger , PA Other Provider Active Start: 2024 Dr. Nils Haddad MD Attending Provider [...] Care Provider Active Start: September 25, 2024 Ada Jaeger PA Attending Provider Active Star t: September 25, 2024 Ada Jaeger PA Referring Provider Active Star t: September 25, 2024 Team Status: Inactive Member Role Status Dates Dr. Minerva Shaver MD Primary Care Provider Active Start: September 29, 2024 End: September 29, 2024 Dr. Minerva Shaver MD Referring Provider Active Start: September 29, 2024 End: September 29, 2024 Nagi Sharma WORSHIP LEADER, WORSHIP LEADER-C Attending Provider Active S tart: September 29, 2024 End: September 29, 2024 Team Status: Inactive Member Role Status Dates Dr. Minerva Shaver MD Primary Care Provider Active Start: September 25, 2024 End: September 25, 2024 RENEE Bojorquez Attending Provider Active Star t: September 25, 2024 End: September 25, 2024 RENEE Bojorquez Referring Provider Active Star t: September 25, 2024 End: September 25, 2024 Firer Automatic Stoker Relationship Specialty Start Date End Date Minerva Shaver MD [address] [place] [address] PCP - General Internal Medicine 03/08/24 Maxim Ibarra MD [address] [place], [place] [address] PCP - Referring 1 Cardiovascular Disease 04/13/24 Laith Montes MD [address], [place] [address] PCP - Referring 2 Pulmonary Disease 04/13/24 Firer Automatic Stoker Relationship Specialty Start Date End Date Minerva Shaver MD [address] [place], [place] [address] [phone] PCP - General Internal Medicine 09/25/15 Maxim Ibarra MD Specialty Lens Shaper Grinder Cardiology 03/19/13 Dianna Ballard APRN.BOLT SORTER [address] [place] [address] Fast Food Manager Internal Medicine 04/18/24 Maya Velazquez, NINI [address] [place] [address] Primary Care Senior Training Specialist 10/11/24 Firer Automatic Stoker Relationship Specialty Start Date End Date Minerva Shaver MD [address] [place], [place] [address] PCP - General Internal Medicine 09/25/15 Maxim Ibarra MD Specialty Lens Shaper Grinder Cardiology 03/19/13 Dianna Ballard APRN.BOLT SORTER [address] [place], [place] [address] Fast Food Manager Internal Medicine 04/18/24 Maya Velazquez RN [address] [place] [address] Primary Care Senior Training Specialist 10/11/24 Team Status: Inactive Member Role Status [...] 15, 2024 End: October 15, 2024 Dr. Dragan Fink MD Attending Provider Active Start: October 15, 2024 End: October 15, 2024 Firer Automatic Stoker Relationship Specialty Start Date End Date Minerva Shaver MD [address] [facility] [place] [address] PCP - General Internal Medicine 09/25/15 Maxim Ibarra MD Specialty Lens Shaper Grinder Cardiology 03/19/13 Dianna Ballard APRN.BOLT SORTER [address] [place] [address] Fast Food Manager Internal Medicine 04/18/24 Maya Velazquez RN [address] [place] [address] Primary Care Senior Training Specialist 10/11/24 Firer Automatic Stoker Relationship Specialty Start Date End Date Minerva Shaver MD [address] [facility] [place] [address] PCP - General Internal Medicine 09/25/15 Maxim Ibarra MD Specialty Lens Shaper Grinder Cardiology 03/19/13 Dianna Ballard APRN.BOLT SORTER [address] [place] [address] Fast Food Manager Internal Medicine 04/18/24 Maya Velazquez RN [address] [place] [address] Primary Care Senior Training Specialist 10/11/24 Team Status: Inactive Member Role Status Dates Dr. Minerva Shaver MD Primary Care Provider Active Start: October 25, 2024 End: October 25, 2024 Dr. Dragan Fink MD Attending Provider Active Start: October 25, 2024 End: October 25, 2024 Dr. Dragan Fink MD Referring Provider Active Start: October 25, 2024 End: October 25, 2024 Team Status: Active Member Role Status Dates Dr. Minerva Shaver MD Primary Care Provider Active Start: October 25, 2024 Dr. Dragan Fink MD Attending Provider Active Start: October 25, 2024 Dr. Dragan Fink MD Referring Provider Active Start: October 25, 2024 Dr. Dragan Fink MD Other Provider Active Star t: October 25, 2024 Team Status: Inactive Member Role Status Dates Dr. Minerva Shaver MD Primary Care Provider Active Start: October 08, 2024 End: October 08, 2024 Dr. Maxim Ibarra MD Attending Provider Active S tart: October 08, 2024 End: October 08, 2024 Team Status: Inactive Member Role Status Dates Dr. Minerva Shaver MD Primary Care Provider Active Start: October 14, 2024 End: October 14, 2024 Dr. Maxim Ibarra MD Attending Provider Active S tart: October 14, 2024 End: October 14, 2024 Firer Automatic Stoker Relationship Specialty Start Date End Date Minerva Shaver MD [address] [place] [address] PCP - General Internal Medicine 09/25/15 Maxim Ibarra MD Specialty Lens Shaper Grinder Cardiology 03/19/13 Dianna Ballard APRN.CNP [address] [place], [place] [address] Fast Food Manager Internal Medicine 04/18/24 Maya Velazquez RN [address] [place] [address] Primary Care Senior Training Specialist 10/11/24 Team Status: Active Member Role/Relationship Status Dates Dr. Minerva Shaver MD Primary Care Provider Active Team Status: Inactive Member Role/Relationship Status Dates Dr. Minerva Shaver MD Primary Care Provider Active Start: July 27, 2024 End: July 27, 2024 Dr. Minerva Shaver MD Referring Provider Active Start: July 27, 2024 End: July 27, 2024 Nagi Sharma NP, WORSHIP LEADER-C Attending Provider Active S tart: July 27, 2024 End: July 27, 2024 Team Status: Inactive Member Role/Relationship Status Dates Dr. Minerva Shaver MD Primary Care Provider Active Start: July 29, 2024 End: July 29, 2024 Dr. Omid Moreno MD Attending Provider Active Start: July 29, 2024 End: July 29, 2024 Dr. Omid Moreno MD Referring Provider Active Start: July 29, 2024 End: July 29, 2024 Team Status: Inactive Member Role/Relationship Status Dates Dr. Minerva Shaver MD Primary Care Provider Active Start: July 31, 2024 End: August 01, 2024 Dr. Saul Guzman DO Attending Provider Active Start: July 31, 2024 End: August 01, 2024 Dr. Saul Guzman DO Emergency Provider Active Start: July 31, 2024 End: August 01, 2024 Team Status: Inactive Member Role/Relationship Status Dates Dr. Minerva Shaver MD Primary Care Provider Active Start: August 17, 2024 End: August 17, 2024 Dr. Minerva Shaver MD Referring Provider Active Start: August 17, 2024 End: August 17, 2024 RENEE Bojorquez Attending Provider Active Star t: August 17, 2024 End: August 17, 2024 Team Status: Inactive Member Role/Relationship Status Dates Dr. Minerva Shaver MD Primary Care Provider Active Start: August 17, 2024 End: August 17, 2024 RENEE Bojorquez Attending Provider Active Star t: August 17, 2024 End: August 17, 2024 RENEE Bojorquez Referring Provider Active Star t: August 17, 2024 End: August 17, 2024 Team Status: Inactive Member Role/Relationship Status Dates Dr. Minerva Shaver MD Primary Care Provider Active Start: September 15, 2024 End: September 15, 2024 RENEE Bojorquez Attending Provider Active Star t: September 15, 2024 End: September 15, 2024 RENEE Bojorquez Referring Provider Active Star t: September 15, 2024 End: September 15, 2024 Team Status: Active Member Role/Relationship Status Dates Dr. Minerva Shaver MD Primary Care Provider Active Start: September 15, 2024 RENEE Bojorquez Referring Provider Active Star t: September 15, 2024 RENEE Bojorquez Other Provider Active Start: 2024 Dr. Nils Hadadd MD Attending Provider Active S tart: September 15, 2024 Team Status: Inactive Member Role/Relationship Status Dates Dr. Minerva Shaver MD Primary Care Provider Active Start: September 17, 2024 End: September 17, 2024 Dr. Omid Moreno MD Attending Provider Active Start: September 17, 2024 End: September 17, 2024 Dr. Omid Moreno MD Referring Provider Active Start: September 17, 2024 End: September 17, 2024 Team Status: Inactive Member Role/Relationship Status Dates Dr. Minerva Shaver MD Primary Care Provider Active Start: September 25, 2024 End: September 25, 2024 RENEE Bojorquez Attending Provider Active Star t: September 25, 2024 End: September 25, 2024 RENEE Bojorquez Referring Provider Active Star t: September 25, 2024 End: September 25, 2024 Team Status: Inactive Member Role/Relationship Status Dates Dr. Minerva Shaver MD Primary Care Provider Active Start: September 29, 2024 End: September 29, 2024 Dr. Minerva Shaver MD Referring Provider Active Start: September 29, 2024 End: September 29, 2024 Nagi Sharma WORSHIP LEADER, WORSHIP LEADER-C Attending Provider Active S tart: September 29, 2024 End: September 29, 2024 Team Status: Inactive Member Role/Relationship Status Dates Dr. Minerva Shaver MD Primary Care Provider Active Start: September 30, 2024 End: September 30, 2024 Dr. Maxim Ibarra MD Attending Provider Active S tart: September 30, 2024 End: September 30, 2024 Dr. Maxim Ibarra MD Referring Provider Active S tart: September 30, 2024 End: September 30, 2024 Team Status: Active Member Role/Relationship Status Dates Dr. Minerva Shaver MD Primary Care Provider Active Start: September 30, 2024 Dr. Maxim Ibarra MD Attending Provider Active S tart: September 30, 2024 Dr. Maxim Ibarra MD Referring Provider Active S tart: September 30, 2024 Dr. Maxim Ibarra MD Other Provider Active Start : September 30, 2024 Team Status: Inactive Member Role/Relationship Status Dates Dr. Minerva Shaver MD Primary Care Provider Active Start: October 08, 2024 End: October 08, 2024 Dr. Maxim Ibarra MD Attending Provider Active S tart: October 08, 2024 End: October 08, 2024 Team Status: Inactive Member Role/Relationship Status Dates Dr. Minerva Shaver MD Primary Care Provider Active Start: October 14, 2024 End: October 14, 2024 Dr. Maxim Ibarra MD Attending Provider Active S tart: October 14, 2024 End: October 14, 2024 Team Status: Inactive Member Role/Relationship Status Dates Dr. Minerva Shaver MD Primary Care Provider Active Start: October 14, 2024 End: October 14, 2024 Dr. Minerva Shaver MD Referring Provider Active Start: October 14, 2024 End: October 14, 2024 Cande Rasmussen Attending Provider Active Start: 2024 End: October 14, 2024 Team Status: Inactive Member Role/Relationship Status Dates Dr. Minerva Shaver MD Primary Care Provider Active Start: October 15, 2024 End: October 15, 2024 Dr. Minerva Shaver MD Referring Provider Active Start: October 15, 2024 End: October 15, 2024 Dr. Dragan Fink MD Attending Provider Active Start: October 15, 2024 End: October 15, 2024 Team Status: Inactive Member Role/Relationship Status Dates Dr. Minerva Shaver MD Primary Care Provider Active Start: October 25, 2024 End: October 25, 2024 Dr. Dragan Fink MD Attending Provider Active Start: October 25, 2024 End: October 25, 2024 Dr. Dragan Fink MD Referring Provider Active Start: October 25, 2024 End: October 25, 2024 Team Status: Active Member Role/Relationship Status Dates Dr. Minerva Shaver MD Primary Care Provider Active Start: October 25, 2024 Dr. Dragan Fink MD Attending Provider Active Start: October 25, 2024 Dr. Dragan Fink MD Referring Provider Active Start: October 25, 2024 Dr. Dragan Fink MD Other Provider Active Star t: October 25, 2024 Team Status: Inactive Member Role/Relationship Status Dates Dr. Minerva Shaver MD Primary Care Provider Active Start: November 09, 2024 End: November 09, 2024 Dr. Minerva Shaver MD Referring Provider Active Start: November 09, 2024 End: November 09, 2024 Dr. Dragan Fink MD Attending Provider Active Start: November 09, 2024 End: November 09, 2024 Team Status: Inactive Member Role/Relationship Status Dates Dr. Minerva Shaver MD Primary Care Provider Active Start: November 17, 2024 End: November 17, 2024 Dr. Minerva Shaver MD Referring Provider Active Start: November 17, 2024 End: November 17, 2024 Cande Rasmussen Attending Provider Active Start: 2024 End: November 17, 2024 Team Status: Inactive Member Role/Relationship Status Dates Dr. Minerva Shaver MD Primary Care Provider Active Start: July 29, 2024 End: July 29, 2024 Dr. Omid Moreno MD Attending Provider Active Start: July 29, 2024 End: July 29, 2024 Dr. Omid Moreno MD Referring Provider Active Start: July 29, 2024 End: July 29, 2024 Team Status: Inactive Member Role/Relationship Status Dates Dr. Minerva Shaver MD Primary Care Provider Active Start: July 31, 2024 End: August 01, 2024 Dr. Saul Guzman DO Attending Provider Active Start: July 31, 2024 End: August 01, 2024 Dr. Saul Guzman DO Emergency Provider Active Start: July 31, 2024 End: August 01, 2024 Team Status: Inactive Member Role/Relationship Status Dates Dr. Minerva Shaver MD Primary Care Provider Active Start: August 17, 2024 End: August 17, 2024 Dr. Minerva Shaver MD Referring Provider Active Start: August 17, 2024 End: August 17, 2024 Ada Jaeger , PA Attending Provider Active Star t: August 17, 2024 End: August 17, 2024 Team Status: Inactive Member Role/Relationship Status Dates Dr. Minerva Shaver MD Primary Care Provider Active Start: August 17, 2024 End: August 17, 2024 Ada Jaeger PA Attending Provider Active Star t: August 17, 2024 End: August 17, 2024 Ada Jaeger , PA Referring Provider Active Star t: August 17, 2024 End: August 17, 2024 Team Status: Inactive Member Role/Relationship Status Dates Dr. Minerva Shaver MD Primary Care Provider Active Start: September 15, 2024 End: September 15, 2024 Ada Jaeger PA Attending Provider Active Star t: September 15, 2024 End: September 15, 2024 Ada Jaeger PA Referring Provider Active Star t: September 15, 2024 End: September 15, 2024 Team Status: Active Member Role/Relationship Status Dates Dr. Minerva Shaver MD Primary Care Provider Active Start: September 15, 2024 RENEE Bojorquez Referring Provider Active Star t: September 15, 2024 Ada Jaeger PA Other Provider Active Start: 2024 Dr. Nils Haddad MD Attending Provider Active S tart: September 15, 2024 Team Status: Inactive Member Role/Relationship Status Dates Dr. Minerva Shaver MD Primary Care Provider Active Start: September 17, 2024 End: September 17, 2024 Dr. Omid Moreno MD Attending Provider Active Start: September 17, 2024 End: September 17, 2024 Dr. Omid Morneo MD Referring Provider Active Start: September 17, 2024 End: September 17, 2024 Team Status: Inactive Member Role/Relationship Status Dates Dr. Minerva Shaver MD Primary Care Provider Active Start: September 25, 2024 End: September 25, 2024 RENEE Bojorquez Attending Provider Active Star t: September 25, 2024 End: September 25, 2024 Ada Jaeger PA Referring Provider Active Star t: September 25, 2024 End: September 25, 2024 Team Status: Inactive Member Role/Relationship Status Dates Dr. Minerva Shaver MD Primary Care Provider Active Start: September 29, 2024 End: September 29, 2024 Dr. Minerva Shaver MD Referring Provider Active Start: September 29, 2024 End: September 29, 2024 Nagi Sharma WORSHIP LEADER, WORSHIP LEADER-C Attending Provider Active S tart: September 29, 2024 End: September 29, 2024 Team Status: Inactive Member Role/Relationship Status Dates Dr. Minerva Shaver MD Primary Care Provider Active Start: September 30, 2024 End: September 30, 2024 Dr. Maxim Ibarra MD Attending Provider Active S tart: September 30, 2024 End: September 30, 2024 Dr. Maxim Ibarra MD Referring Provider Active S tart: September 30, 2024 End: September 30, 2024 Team Status: Active Member Role/Relationship Status Dates Dr. Minerva Shaver MD Primary Care Provider Active Start: September 30, 2024 Dr. Maxim Ibarra MD Attending Provider Active S tart: September 30, 2024 Dr. Maxim Ibarra MD Referring Provider Active S tart: September 30, 2024 Dr. Maxim Ibarra MD Other Provider Active Start : September 30, 2024 Team Status: Inactive Member Role/Relationship Status Dates Dr. Minerva Shaver MD Primary Care Provider Active Start: October 08, 2024 End: October 08, 2024 Dr. Maxim Ibarra MD Attending Provider Active S tart: October 08, 2024 End: October 08, 2024 Team Status: Inactive Member Role/Relationship Status Dates Dr. Minerva Shaver MD Primary Care Provider Active Start: October 14, 2024 End: October 14, 2024 Dr. Maxim Ibarra MD Attending Provider Active S tart: October 14, 2024 End: October 14, 2024 Team Status: Inactive Member Role/Relationship Status Dates Dr. Minerva Shaver MD Primary Care Provider Active Start: October 14, 2024 End: October 14, 2024 Dr. Minerva Shaver MD Referring Provider Active Start: October 14, 2024 End: October 14, 2024 Cande Rasmussen Attending Provider Active Start: 2024 End: October 14, 2024 Team Status: Inactive Member Role/Relationship Status Dates Dr. Minerva Shaver MD Primary Care Provider Active Start: October 15, 2024 End: October 15, 2024 Dr. Minerva Shaver MD Referring Provider Active Start: October 15, 2024 End: October 15, 2024 Dr. Dragan Fink MD Attending Provider Active Start: October 15, 2024 End: October 15, 2024 Team Status: Inactive Member Role/Relationship Status Dates Dr. Minerva Shaver MD Primary Care Provider Active Start: October 25, 2024 End: October 25, 2024 Dr. Dragan Fink MD Attending Provider Active Start: October 25, 2024 End: October 25, 2024 Dr. Dragan Fink MD Referring Provider Active Start: October 25, 2024 End: October 25, 2024 Team Status: Active Member Role/Relationship Status Dates Dr. Minerva Shaver MD Primary Care Provider Active Start: October 25, 2024 Dr. Dragan Fink MD Attending Provider Active Start: October 25, 2024 Dr. Dragan Fink MD Referring Provider Active Start: October 25, 2024 Dr. Dragan Fink MD Other Provider Active Star t: October 25, 2024 Team Status: Inactive Member Role/Relationship Status Dates Dr. Minerva Shaver MD Primary Care Provider Active Start: November 09, 2024 End: November 09, 2024 Dr. Minerva Shaver MD Referring Provider Active Start: November 09, 2024 End: November 09, 2024 Dr. Dragan Fink MD Attending Provider Active Start: November 09, 2024 End: November 09, 2024 Team Status: Inactive Member Role/Relationship Status Dates Dr. Minerva Shaver MD Primary Care Provider Active Start: November 17, 2024 End: November 17, 2024 Dr. Maxim Ibarra MD Attending Provider Active S tart: November 17, 2024 End: November 17, 2024 Firer Automatic Stoker Relationship Specialty Start Date End Date Minerva Shaver MD [address] [place] [address] PCP - General Internal Medicine 09/25/15 Maxim Ibarra MD Specialty Lens Shaper Grinder Cardiology 03/19/13 Dianna Ballard APRN.[employer]TER [address] [place] [address] Fast Food Manager Internal Medicine 04/18/24 Firer Automatic Stoker Relationship Specialty Start Date End Date Minerva Shaver MD [address] [place] [address] PCP - General Internal Medicine 09/25/15 Maxim Ibarra MD Specialty Lens Shaper Grinder Cardiology 03/19/13 Dianna Ballard APRN.[employer] SORTER [address] [place] [address] Fast Food Manager Internal Medicine 04/18/24 Firer Automatic Stoker Relationship Specialty Start Date End Date Minerva Shaver MD [address] [place] [address] PCP - General Internal Medicine 09/25/15 Maxim Ibarra MD Specialty Lens Shaper Grinder Cardiology 03/19/13 Dianna Ballard APRN.[employer] SORTER [address] [place] [address] Fast Food Manager Internal Medicine 04/18/24 Firer Automatic Stoker Relationship Specialty Start Date End Date Minerva Shaver MD [address] [place] [address] PCP - General Internal Medicine 09/25/15 Maxim Ibarra MD Specialty Lens Shaper Grinder Cardiology 03/19/13 Dianna Ballard APRN.[employer] SORTER [address] [place] [address] Fast Food Manager Internal Medicine 04/18/24 Firer Automatic Stoker Relationship Specialty Start Date End Date Minerva Shaver MD [address] [place] [address] PCP - General Internal Medicine 09/25/15 Maxim Ibarra MD Specialty Lens Shaper Grinder Cardiology 03/19/13 Dianna Ballard APRN.[employer] SORTER [address] [facility] [address] Fast Food Manager Internal Medicine 04/18/24 Team Status: Inactive Member Role/Relationship Status Dates Dr. Minerva Shaver MD Primary Care Provider Active Start: September 25, 2024 End: September 25, 2024 RENEE Bojorquez Attending Provider Active Star t: September 25, 2024 End: September 25, 2024 RENEE Bojorquez Referring Provider Active Star t: September 25, 2024 End: September 25, 2024 Team Status: Inactive Member Role/Relationship Status Dates Dr. Minerva Shaver MD Primary Care Provider Active Start: September 29, 2024 End: September 29, 2024 Dr. Minerva Shaver MD Referring Provider Active Start: September 29, 2024 End: September 29, 2024 Nagi Sharma WORSHIP LEADER, WORSHIP LEADER-C Attending Provider Active S tart: September 29, 2024 End: September 29, 2024 Team Status: Inactive Member Role/Relationship Status Dates Dr. Minerva Shaver MD Primary Care Provider Active Start: September 30, 2024 End: September 30, 2024 Dr. Maxim Ibarra MD Attending Provider Active S tart: September 30, 2024 End: September 30, 2024 Dr. Maxim Ibarra MD Referring Provider Active S tart: September 30, 2024 End: September 30, 2024 Team Status: Active Member Role/Relationship Status Dates Dr. Minerva Shaver MD Primary Care Provider Active Start: September 30, 2024 Dr. Maxim Ibarra MD Attending Provider Active S tart: September 30, 2024 Dr. Maxim Ibarra MD Referring Provider Active S tart: September 30, 2024 Dr. Maxim Ibarra MD Other Provider Active Start : September 30, 2024 Team Status: Inactive Member Role/Relationship Status Dates Dr. Minerva Shaver MD Primary Care Provider Active Start: October 08, 2024 End: October 08, 2024 Dr. Maxim Ibarra MD Attending Provider Active S tart: October 08, 2024 End: October 08, 2024 Team Status: Inactive Member Role/Relationship Status Dates Dr. Minerva Shaver MD Primary Care Provider Active Start: October 14, 2024 End: October 14, 2024 Dr. Maxim Ibarra MD Attending Provider Active S tart: October 14, 2024 End: October 14, 2024 Team Status: Inactive Member Role/Relationship Status Dates Dr. Minerva Shaver MD Primary Care Provider Active Start: October 14, 2024 End: October 14, 2024 Dr. Minerva Shaver MD Referring Provider Active Start: October 14, 2024 End: October 14, 2024 Cande Rasmussen Attending Provider Active Start: 2024 End: October 14, 2024 Team Status: Inactive Member Role/Relationship Status Dates Dr. Minerva Shaver MD Primary Care Provider Active Start: October 15, 2024 End: October 15, 2024 Dr. Minerva Shaver MD Referring Provider Active Start: October 15, 2024 End: October 15, 2024 Dr. Dragan Fink MD Attending Provider Active Start: October 15, 2024 End: October 15, 2024 Team Status: Inactive Member Role/Relationship Status Dates Dr. Minerva Shaver MD Primary Care Provider Active Start: October 25, 2024 End: October 25, 2024 Dr. Dragan Fink MD Attending Provider Active Start: October 25, 2024 End: October 25, 2024 Dr. Dragan Fink MD Referring Provider Active Start: October 25, 2024 End: October 25, 2024 Team Status: Active Member Role/Relationship Status Dates Dr. Minerva Shaver MD Primary Care Provider Active Start: October 25, 2024 Dr. Dragan Fink MD Attending Provider Active Start: October 25, 2024 Dr. Dragan Fink MD Referring Provider Active Start: October 25, 2024 Dr. Dragan Fink MD Other Provider Active Star t: October 25, 2024 Team Status: Inactive Member Role/Relationship Status Dates Dr. Minerva Shaver MD Primary Care Provider Active Start: November 09, 2024 End: November 09, 2024 Dr. Minerva Shaver MD Referring Provider Active Start: November 09, 2024 End: November 09, 2024 Dr. Dragan Fink MD Attending Provider Active Start: November 09, 2024 End: November 09, 2024 Team Status: Inactive Member Role/Relationship Status Dates Dr. Minerva Shaver MD Primary Care Provider Active Start: November 17, 2024 End: November 17, 2024 Dr. Maxim Ibarra MD Attending Provider Active S tart: November 17, 2024 End: November 17, 2024 Team Status: Inactive Member Role/Relationship Status Dates Dr. Minerva Shaver MD Primary Care Provider Active Start: November 17, 2024 End: November 17, 2024 Dr. Minerva Shaver MD Referring Provider Active Start: November 17, 2024 End: November 17, 2024 Dr. Maxim Ibarra MD Attending Provider Active S tart: November 17, 2024 End: November 17, 2024 Team Status: Inactive Member Role/Relationship Status Dates Dr. Minerva Shaver MD Primary Care Provider Active Start: January 05, 2025 End: January 05, 2025 Dr. Maxim Ibarra MD Attending Provider Active S tart: January 05, 2025 End: January 05, 2025 Team Status: Inactive Member Role/Relationship Status Dates Dr. Minerva Shaver MD Primary Care Provider Active Start: September 29, 2024 End: September 29, 2024 Dr. Minerva Shaver MD Referring Provider Active Start: September 29, 2024 End: September 29, 2024 Nagi Sharma WORSHIP LEADER, WORSHIP LEADER-C Attending Provider Active S tart: September 29, 2024 End: September 29, 2024 Team Status: Inactive Member Role/Relationship Status Dates Dr. Minerva Shaver MD Primary Care Provider Active Start: September 30, 2024 End: September 30, 2024 Dr. Maxim Ibarra MD Attending Provider Active S tart: September 30, 2024 End: September 30, 2024 Dr. Maxim Ibarra MD Referring Provider Active S tart: September 30, 2024 End: September 30, 2024 Team Status: Active Member Role/Relationship Status Dates Dr. Minerva Shaver MD Primary Care Provider Active Start: September 30, 2024 Dr. Maxim Ibarra MD Attending Provider Active S tart: September 30, 2024 Dr. Maxim Ibarra MD Referring Provider Active S tart: September 30, 2024 Dr. Maxim Ibarra MD Other Provider Active Start : September 30, 2024 Team Status: Inactive Member Role/Relationship Status Dates Dr. Minerva Shaver MD Primary Care Provider Active Start: October 08, 2024 End: October 08, 2024 Dr. Maxim Ibarra MD Attending Provider Active S tart: October 08, 2024 End: October 08, 2024 Team Status: Inactive Member Role/Relationship Status Dates Dr. Minerva Shaver MD Primary Care Provider Active Start: October 14, 2024 End: October 14, 2024 Dr. Maxim Ibarra MD Attending Provider Active S tart: October 14, 2024 End: October 14, 2024 Team Status: Inactive Member Role/Relationship Status Dates Dr. Minerva Shaver MD Primary Care Provider Active Start: October 14, 2024 End: October 14, 2024 Dr. Minerva Shaver MD Referring Provider Active Start: October 14, 2024 End: October 14, 2024 Cande Rasmussen Attending Provider Active Start: 2024 End: October 14, 2024 Team Status: Inactive Member Role/Relationship Status Dates Dr. Minerva Shaver MD Primary Care Provider Active Start: October 15, 2024 End: October 15, 2024 Dr. Minerva Shaver MD Referring Provider Active Start: October 15, 2024 End: October 15, 2024 Dr. Dragan Fink MD Attending Provider Active Start: October 15, 2024 End: October 15, 2024 Team Status: Inactive Member Role/Relationship Status Dates Dr. Minerva Shaver MD Primary Care Provider Active Start: October 25, 2024 End: October 25, 2024 Dr. Dragan Fink MD Attending Provider Active Start: October 25, 2024 End: October 25, 2024 Dr. Dragan Fink MD Referring Provider Active Start: October 25, 2024 End: October 25, 2024 Team Status: Active Member Role/Relationship Status Dates Dr. Minerva Shaver MD Primary Care Provider Active Start: October 25, 2024 Dr. Dragan Fink MD Attending Provider Active Start: October 25, 2024 Dr. Dragan Fink MD Referring Provider Active Start: October 25, 2024 Dr. Dragan Fink MD Other Provider Active Star t: October 25, 2024 Team Status: Inactive Member Role/Relationship Status Dates Dr. Minerva Shaver MD Primary Care Provider Active Start: November 09, 2024 End: November 09, 2024 Dr. Minerva Shaver MD Referring Provider Active Start: November 09, 2024 End: November 09, 2024 Dr. Dragan Fink MD Attending Provider Active Start: November 09, 2024 End: November 09, 2024 Team Status: Inactive Member Role/Relationship Status Dates Dr. Minerva Shaver MD Primary Care Provider Active Start: November 17, 2024 End: November 17, 2024 Dr. Maxim Ibarra MD Attending Provider Active S tart: November 17, 2024 End: November 17, 2024 Team Status: Inactive Member Role/Relationship Status Dates Dr. Minerva Shaver MD Primary Care Provider Active Start: November 17, 2024 End: November 17, 2024 Dr. Minerva Shaver MD Referring Provider Active Start: November 17, 2024 End: November 17, 2024 Dr. Maxim Ibarra MD Attending Provider Active S tart: November 17, 2024 End: November 17, 2024 Team Status: Inactive Member Role/Relationship Status Dates Dr. Minerva Shaver MD Primary Care Provider Active Start: January 05, 2025 End: January 05, 2025 Dr. Maxim Ibarra MD Attending Provider Active S tart: January 05, 2025 End: January 05, 2025 Team Status: Inactive Member Role/Relationship Status Dates Dr. Minerva Shaver MD Primary Care Provider Active Start: January 25, 2025 End: January 25, 2025 Dr. Minerva Shaver MD Referring Provider Active Start: January 25, 2025 End: January 25, 2025 Cande Rasmussen Attending Provider Active Start: Brianna oseguera 2024 End: January 25, 2025 Team Status: Active Member Role/Relationship Status Dates Dr. Minerva Shaver MD Primary care physician Active Team Status: Inactive Member Role/Relationship Status Dates Dr. Minerva Shaver MD Primary care physician Active Start: September 29, 2024 End: September 29, 2024 Dr. Minerva Shaver MD Referring Provider Active Start: September 29, 2024 End: September 29, 2024 Nagi Sharma WORSHIP LEADER, WORSHIP LEADER-C Attending physician Active Start: September 29, 2024 End: September 29, 2024 Team Status: Inactive Member Role/Relationship Status Dates Dr. Minerva Shaver MD Primary care physician Active Start: September 30, 2024 End: September 30, 2024 Dr. Maxim Ibarra MD Attending physician Active Start: September 30, 2024 End: September 30, 2024 Dr. Maxim Ibarra MD Referring Provider Active S tart: September 30, 2024 End: September 30, 2024 Team Status: Active Member Role/Relationship Status Dates Dr. Minerva Shaver MD Primary care physician Active Start: September 30, 2024 Dr. Maxim Ibarra MD Attending physician Active Start: September 30, 2024 Dr. Maxim Ibarra MD Referring Provider Active S tart: September 30, 2024 Dr. Maxim Ibarra MD Nurse Practitioner Active S tart: September 30, 2024 Team Status: Inactive Member Role/Relationship Status Dates Dr. Minerva Shaver MD Primary care physician Active Start: October 08, 2024 End: October 08, 2024 Dr. Maxim Ibarra MD Attending physician Active Start: October 08, 2024 End: October 08, 2024 Team Status: Inactive Member Role/Relationship Status Dates Dr. Minerva Shaver MD Primary care physician Active Start: October 14, 2024 End: October 14, 2024 Dr. Maxim Ibarra MD Attending physician Active Start: October 14, 2024 End: October 14, 2024 Team Status: Inactive Member Role/Relationship Status Dates Dr. Minerva Shaver MD Primary care physician Active Start: October 14, 2024 End: October 14, 2024 Dr. Minerva Shaver MD Referring Provider Active Start: October 14, 2024 End: October 14, 2024 Cande Rasmussen Attending physician Active Start: October 14, 2024 End: October 14, 2024 Team Status: Inactive Member Role/Relationship Status Dates Dr. Minerva Shaver MD Primary care physician Active Start: October 15, 2024 End: October 15, 2024 Dr. Minerva Shaver MD Referring Provider Active Start: October 15, 2024 End: October 15, 2024 Dr. Dragan Fink MD Attending physician Active Start: October 15, 2024 End: October 15, 2024 Team Status: Inactive Member Role/Relationship Status Dates Dr. Minerva Shaver MD Primary care physician Active Start: October 25, 2024 End: October 25, 2024 Dr. Dragan Fink MD Attending physician Active Start: October 25, 2024 End: October 25, 2024 Dr. Dragan Fink MD Referring Provider Active Start: October 25, 2024 End: October 25, 2024 Team Status: Active Member Role/Relationship Status Dates Dr. Minerva Shaver MD Primary care physician Active Start: October 25, 2024 Dr. Dragan Fink MD Attending physician Active Start: October 25, 2024 Dr. Dragan Fink MD Referring Provider Active Start: October 25, 2024 Dr. Dragan Fink MD Nurse Practitioner Active Start: October 25, 2024 Team Status: Inactive Member Role/Relationship Status Dates Dr. Minerva Shaver MD Primary care physician Active Start: November 09, 2024 End: November 09, 2024 Dr. Minerva Shaver MD Referring Provider Active Start: November 09, 2024 End: November 09, 2024 Dr. Dragan Fink MD Attending physician Active Start: November 09, 2024 End: November 09, 2024 Team Status: Inactive Member Role/Relationship Status Dates Dr. Minerva Shaver MD Primary care physician Active Start: November 17, 2024 End: November 17, 2024 Dr. Maxim Ibarra MD Attending physician Active Start: November 17, 2024 End: November 17, 2024 Team Status: Inactive Member Role/Relationship Status Dates Dr. Minerva Shaver MD Primary care physician Active Start: November 17, 2024 End: November 17, 2024 Dr. Minerva Shaver MD Referring Provider Active Start: November 17, 2024 End: November 17, 2024 Dr. Maxim Ibarra MD Attending physician Active Start: November 17, 2024 End: November 17, 2024 Team Status: Inactive Member Role/Relationship Status Dates Dr. Minerva Shaver MD Primary care physician Active Start: January 05, 2025 End: January 05, 2025 Dr. Maxim Ibarra MD Attending physician Active Start: January 05, 2025 End: January 05, 2025 Team Status: Inactive Member Role/Relationship Status Dates Dr. Minerva Shaver MD Primary care physician Active Start: January 25, 2025 End: January 25, 2025 Dr. Minerva Shaver MD Referring Provider Active Start: January 25, 2025 End: January 25, 2025 Cande Rasmussen Attending physician Active Start: January 25, 2025 End: January 25, 2025 Team Status: Active Member Role/Relationship Status Dates Dr. Minerva Shaver MD Primary care physician Active Start: January 26, 2025 Dr. Minerva Shaver MD Referring Provider Active Start: January 26, 2025 Dr. Jovanni Schofield DO Attending physician Active Start: January 26, 2025 Team Status: Inactive Member Role/Relationship Status Dates Dr. Minerva Shaver MD Primary care physician Active Start: January 26, 2025 End: January 26, 2025 Dr. Maxim Ibarra MD Attending physician Active Start: January 26, 2025 End: January 26, 2025 Team Status: Inactive Member Role/Relationship Status Dates Dr. Minerva Shaver MD Primary care physician Active Start: January 26, 2025 End: January 26, 2025 Dr. Minerva Shaver MD Referring Provider Active Start: January 26, 2025 End: January 26, 2025 Dr. Jovanni Schofield DO Attending physician Active Start: January 26, 2025 End: January 26, 2025 Team Status: Inactive Member Role/Relationship Status Dates Dr. Minerva Shaver MD Primary care physician Active Start: January 25, 2025 End: January 25, 2025 Dr. Maxim Ibarra MD Attending physician Active Start: January 25, 2025 End: January 25, 2025 Team Status: Inactive Member Role/Relationship Status Dates Dr. Minerva Shaver MD Primary care physician Active Start: January 25, 2025 End: January 25, 2025 Dr. Minerva Shaver MD Referring Provider Active Start: January 25, 2025 End: January 25, 2025 Cande Rasmussen Attending physician Active Start: January 25, 2025 End: January 25, 2025 Team Status: Inactive Member Role/Relationship Status Dates Dr. Minerva Shaver MD Primary care physician Active Start: January 26, 2025 End: January 26, 2025 Dr. Minerva Shaver MD Referring Provider Active Start: January 26, 2025 End: January 26, 2025 Dr. Jovanni Schofield DO Attending physician Active Start: January 26, 2025 End: January 26, 2025 Team Status: Inactive Member Role/Relationship Status Dates Dr. Minerva Shaver MD Primary care physician Active Start: January 26, 2025 End: January 26, 2025 Dr. Maxim Ibarra MD Attending physician Active Start: January 26, 2025 End: January 26, 2025 Team Status: Inactive Member Role/Relationship Status Dates Dr. Minerva Shaver MD Primary care physician Active Start: October 08, 2024 End: October 08, 2024 Dr. Maxim Ibarra MD Attending physician Active Start: October 08, 2024 End: October 08, 2024 Team Status: Inactive Member Role/Relationship Status Dates Dr. Minerva Shaver MD Primary care physician Active Start: October 14, 2024 End: October 14, 2024 Dr. Maxim Ibarra MD Attending physician Active Start: October 14, 2024 End: October 14, 2024 Team Status: Inactive Member Role/Relationship Status Dates Dr. Minerva Shaver MD Primary care physician Active Start: October 14, 2024 End: October 14, 2024 Dr. Minerva Shaver MD Referring Provider Active Start: October 14, 2024 End: October 14, 2024 Cande Rasmussen Attending physician Active Start: October 14, 2024 End: October 14, 2024 Team Status: Inactive Member Role/Relationship Status Dates Dr. Minerva Shaver MD Primary care physician Active Start: October 15, 2024 End: October 15, 2024 Dr. Minerva Shaver MD Referring Provider Active Start: October 15, 2024 End: October 15, 2024 Dr. Dragan Fink MD Attending physician Active Start: October 15, 2024 End: October 15, 2024 Team Status: Inactive Member Role/Relationship Status Dates Dr. Minerva Shaver MD Primary care physician Active Start: October 25, 2024 End: October 25, 2024 Dr. Dragan Fink MD Attending physician Active Start: October 25, 2024 End: October 25, 2024 Dr. Dragan Fink MD Referring Provider Active Start: October 25, 2024 End: October 25, 2024 Team Status: Active Member Role/Relationship Status Dates Dr. Minerva Shaver MD Primary care physician Active Start: October 25, 2024 Dr. Dragan Fink MD Attending physician Active Start: October 25, 2024 Dr. Dragan Fink MD Referring Provider Active Start: October 25, 2024 Dr. Dragan Fink MD Nurse Practitioner Active Start: October 25, 2024 Team Status: Inactive Member Role/Relationship Status Dates Dr. Minerva Shaver MD Primary care physician Active Start: November 09, 2024 End: November 09, 2024 Dr. Minerva Shaver MD Referring Provider Active Start: November 09, 2024 End: November 09, 2024 Dr. Dragan Fink MD Attending physician Active Start: November 09, 2024 End: November 09, 2024 Team Status: Inactive Member Role/Relationship Status Dates Dr. Minerva Shaver MD Primary care physician Active Start: November 17, 2024 End: November 17, 2024 Dr. Maxim Ibarra MD Attending physician Active Start: November 17, 2024 End: November 17, 2024 Team Status: Inactive Member Role/Relationship Status Dates Dr. Minerva Shaver MD Primary care physician Active Start: November 17, 2024 End: November 17, 2024 Dr. Minerva Shaver MD Referring Provider Active Start: November 17, 2024 End: November 17, 2024 Dr. Maxim Ibarra MD Attending physician Active Start: November 17, 2024 End: November 17, 2024 Team Status: Inactive Member Role/Relationship Status Dates Dr. Minerva Shaver MD Primary care physician Active Start: January 05, 2025 End: January 05, 2025 Dr. Maxim Ibarra MD Attending physician Active Start: January 05, 2025 End: January 05, 2025 Team Status: Inactive Member Role/Relationship Status Dates Dr. Minerva Shaver MD Primary care physician Active Start: January 25, 2025 End: January 25, 2025 Dr. Maxim Ibarra MD Attending physician Active Start: January 25, 2025 End: January 25, 2025 Team Status: Inactive Member Role/Relationship Status Dates Dr. Minerva Shaver MD Primary care physician Active Start: January 25, 2025 End: January 25, 2025 Dr. Minerva Shaver MD Referring Provider Active Start: January 25, 2025 End: January 25, 2025 Cande Rasmussen Attending physician Active Start: January 25, 2025 End: January 25, 2025 Team Status: Inactive Member Role/Relationship Status Dates Dr. Minerva Shaver MD Primary care physician Active Start: January 26, 2025 End: January 26, 2025 Dr. Minerva Shaver MD Referring Provider Active Start: January 26, 2025 End: January 26, 2025 Dr. Jovanni Schofield DO Attending physician Active Start: January 26, 2025 End: January 26, 2025 Team Status: Inactive Member Role/Relationship Status Dates Dr. Minerva Shaver MD Primary care physician Active Start: January 26, 2025 End: January 26, 2025 Dr. Maxim Ibarra MD Attending physician Active Start: January 26, 2025 End: January 26, 2025 Team Status: Inactive Member Role/Relationship Status Dates Dr. Minerva Shaver MD Primary care physician Active Start: January 27, 2025 End: January 27, 2025 Dr. Minerva Shaver MD Referring Provider Active Start: January 27, 2025 End: January 27, 2025 Nagi Sharma NP, [employer] Attending physician Active Start: January 27, 2025 End: January 27, 2025 Goals (unrecognized section and content) Goals may [...] section and content) DATE CREATED AUTHOR 11/08/2022 [facility] DATE CREATED AUTHOR AUTHOR'S ORGANIZ ATION 08/20/2023 [facility] DATE CREATED AUTHOR AUTHOR'S ORGANIZ ATION 10/29/2024 [facility] DATE CREATED AUTHOR AUTHOR'S ORGANIZ ATION 01/30/2025 [facility] DATE CREATED AUTHOR AUTHOR'S ORGANIZ ATION 02/21/2025 [facility] DATE CREATED AUTHOR AUTHOR'S ORGANIZ ATION 02/25/2025 [facility] Inactive Administered Medications - up to [...] anticoagulants (e.g. enoxaparin, heparin)., Indications: Atrial Fibrillation 0805 (Given - Provider: Carito Lara RN)2101 (Given - Provider: Shi Dumont RN) 853 (Given - Provider: Flores Gill, NINI)2018 (Given - Provider: Kathy Hernandez, RN) 913 (Given - Provider: Roz Stokes, RN) Atorvastatin (LIPITOR) tablet 20 mg 20 mg, Oral, DAILY AT BEDTIME, First dose on Fri04/13/24 at 2100, Until Discontinued 2101 (Given - Provider: Shi Dumont RN) 2018 (Given - Provider: Kathy Hernandez, RN) budesonide-glycopyrrolat e-Formoterol (BREZTRI) 160-9-4.8 MCG/ACT inhaler 2 puff 2 puff, Inhalation, DAILY, First dose (after last modification) on Fri04/15/24 at 0900, Until Discontinued 807 (Given - Provider: Carito Lara RN) 900 (Given - Provider: Flores Gill RN) 916 (Given - Provider: Roz Stokes, NINI) dapagliflozin (FARXIGA) tablet 10 mg 10 mg, Oral, DAILY, First dose (after last modification) on Fri04/15/24 at 1530, Until Discontinued, Indications: Heart Failure 1555 (Given - Provider: Carito Lara RN) 901 (Given - Provider: Flores Gill RN) 917 (Given - Provider: Roz Stokes, NINI) Dofetilide (TIKOSYN) capsule 125 mcg 125 mcg, Oral, EVERY 12 HOURS NON-STANDARD, First dose (after last modification) on Fri04/13/24 at 2000, Until Discontinued, For new starts, physician must calculate QTc interval here to order drug: QTc equals: 450 ms. Doses should be by at least 10 hours from last administration. Please contact pharmacy/ordering provider for questions about timing of doses. 804 (Given - Provider: Carito Lara RN)2011 (Given - Provider: Shi Dumont RN) 853 (Given - Provider: Flores Gill, NINI)2018 (Given - Provider: Kathy Hernandez, RN) 09 (Given - Provider: Roz Stokes, NINI) fexofenadine (ZINA) tablet 60 mg 60 mg, Oral, DAILY, First dose on Fri04/14/24 at 0915, Until Discontinued, Avoid antacid administration one hour before and two hours after dose. Avoid administration with fruit juices. 0805 (Given - Provider: Carito Lara RN) 0854 (Given - Provider: Flores Gill RN) 0918 (Given - Provider: Roz Stokes, RN) fluticasone (FLONASE) 50 MCG/ACT nasal spray 2 spray 2 spray, Nasal, DAILY, First dose on Fri04/13/24 at 0900, Until Discontinued, Dose is for each nostril. 0808 (Given - Provider: Carito Lara RN) 0900 (Given - Provider: Flores Gill, RN) 0916 (Given - Provider: Roz Stokes, RN) [...] Lara RN) 0859 (Given - Provider: Flores Gill, NINI)2022 (Given - Provider: Kathy Hernandez, NINI) 1002 (Given - Provider: Roz Stokes, RN)1700 (Canceled Entry - Provider: System Discharge [...] < 60 1001 (Given - Provider: Roz Stokes RN) Metoprolol succinate (TOPROL-XL) tablet XL 50 mg [...] Gill RN) 0914 (Given - Provider: Roz Stokes RN) Pantoprazole (PROTONIX) tablet DR 40 mg 40 mg, Oral, DAILY, First dose on Fri04/13/24 at 0900, Until Discontinued, Swallow whole; do not crush or chew., Indications: Continuation of Home Therapy 08 (Given - Provider: Carito Lara, RN) 0854 (Given - Provider: Flores Gill, RN) 0914 (Given - Provider: Roz Stokes, RN) Spironolactone (ALDACTONE) tablet 25 mg 25 mg, Oral, DAILY, First dose on Fri04/13/24 at 0900, Until Discontinued, Max 400 mg/day. Swallow tablet whole; do not crush, split or chew. Contact pharmacy if alternate route or dose is needed. 08 (Given - Provider: Carito Lara RN) 0854 (Given - Provider: Flores Gill, RN) 0914 (Given - Provider: Roz Stokes, RN) PRN Medication Order 04/15/2024 04/16/2024 04/17/2024 Acetaminophen (TYLENOL) tablet 650 mg 650 mg, Oral, EVERY 6 HOURS NEEDED, Starting on Fri04/12/24 at 2255, Until 04/17/24 at 1737, Mild Pain, Oral temp > 100.4 F, Maximum dose of acetaminophen is 4000 mg from all sources in 24 hours. 2100 (Given - Provider: Shi Dumont RN) 142 (Given - Provider: Angela Turcios RN) alum/mag hydrox.-simethicone oral suspension 30 mL 30 mL, Oral, EVERY 6 HOURS NEEDED, Starting on Fri04/12/24 at 2255, Until 04/17/24 at 1737, Indigestion, [...] Dumont RN) 0632 (Given - Provider: Kathy Hernandez RN) Magnesium sulfate 4 g in sterile water [...] at 2256, Until 04/17/24 at 1737, Insomnia 2102 (Given - Provider: Shi Dumont RN) 0009 (Given - Provider: Kathy Hernandez RN) Nystatin (MYCOSTATIN) oral suspension 500,000 Units 500,000 Units, Swish & Swallow, 4 TIMES DAILY NEEDED, Starting on Fri04/13/24 at 0031, Until 04/17/24 at 1737, Thrush Polyethylene glycol (MIRALAX) packet 17 g 17 g, Oral, DAILY NEEDED, Starting on Fri04/12/24 at 2255, Until 04/17/24 at 1737, Constipation 1st Line Potassium chloride (K-DUR) tablet ER 20 mEq 20 mEq, Oral, ADMINISTER DIRECTED, Starting on Fri04/12/24 at [...] 40-60 mEq, Oral, ADMINISTER DIRECTED, Starting on Fri04/12/24 at [...] Meme 04/22/24 at 1500, Last dose on Fri04/22/24 at [...] at 1400, Medrol dose pack: Day 2 of 6 (dose at breakfast, lunch, and supper), Post-op/Post-Proc methylPREDNISolone (MEDROL) tablet 4 mg(Linked Group 1) 4 mg, Oral, 4 TIMES DAILY, 4 doses, First dose (after last modification) on 04/24/24 at 0500, Last dose on Fri04/24/24 at 2100, Medrol dose pack: Day 3 (dose at breakfast, noon, supper, and bedtime), Post-op/Post-Proc methylPREDNISolone (MEDROL) tablet 4 mg(Linked Group 1) 4 mg, Oral, 3 TIMES DAILY, 3 doses, First dose (after last modification) on 04/25/24 at 0900, Last dose on Fri04/25/24 at 2100, Medrol dose pack: Day 4 (dose at breakfast, lunch, and bedtime), Post-op/Post-Proc methylPREDNISolone (MEDROL) tablet 4 mg(Linked Group 1) 4 mg, Oral, EVERY 12 HOURS, 2 doses, First dose (after last modification) on Fri04/26/24 at 0900, Last dose on Fri04/26/24 at 2100, Medrol dose pack: Day 5 (dose at breakfast and bedtime), Post-op/Post-Proc methylPREDNISolone (MEDROL) tablet 4 mg(Linked Group 1) 4 mg, Oral, DAILY EVERY MORNING, 1 dose, First dose (after last modification) on Fri04/27/24 at 0900, Medrol dose pack: Day 6 (dose at breakfast), Post-op/Post-Proc methylPREDNISolone (MEDROL) tablet 8 mg(Linked Group 1) 8 mg, Oral, DAILY AT BEDTIME, 1 dose, First dose (after last modification) on Fri04/23/24 at 1700, Medrol dose pack: Day 2 (dose at bedtime), Post-op/Post-Proc Pantoprazole (PROTONIX) tablet [...] mg/mL injection (CANCELED) NEEDED, Starting on Meme 04/22/24 at 0854, Until Meme 04/22/24 at 1043, Intra-op/Intra-Proc 0854 (Given - Provid [...] Until Meme 04/22/24 at 1716, Insomnia, Post-op/Post-Proc Ondansetron 4mg/2ml (ZOFRAN) injection 4 mg 4 mg, Intravenous, EVERY 4 HOURS NEEDED, Starting on Meme 24 at 1032, Until Meme 24 at 1716, Nausea / Vomiting, Post-op/Post-Proc oxyCODONE (ROXICODONE) tablet 5 mg(Linked Group 2) 5 mg, Oral, EVERY 4 HOURS NEEDED, Starting on Meme 12/12/24 at 1032, Until Meme 04/22/24 at 1716, Moderate Pain, Severe Pain, PRN [...] at 1032, Until Meme 04/22/24 at 1716, Moderate Pain, Severe Pain, PRN for Moderate Pain. Use for Severe Pain if IV not available for use as initial dose. Higher dose may be administred if lower dose was previously documented as ineffective and did not result in adverse effects (RR<10, decrease in level of consciousness), Post-op/Post-Proc Polyethylene glycol (MIRALAX) packet 17 g 17 g, Oral, DAILY NEEDED, Starting on Meme 04/22/24 at 1032, Until Meme 04/22/24 at 1716, Constipation 1st Line, Post-op/Post-Proc Sodium chloride 0.9% IV solution Intravenous, at 1 mL/hr, CONTINUOUS NEEDED, Starting on Fri04/22/24 at 1032, Until Meme 04/22/24 at 1716, [...] on 04/24/24 at 0500, Last dose on Fri04/24/24 at [...] Fri04/27/24 at 0900, Medrol dose pack: Day 6 (dose at breakfast), Post-op/Post-Proc Group 2: oxyCODONE [...] at 1032, Until Meme 04/22/24 at 1716, Moderate Pain, Severe Pain, PRN [...] 1,000 mg, Oral, DAILY, First dose on Fri10/02/24 at 0900, Until Discontinued 08 (Given - Provider: Madelin Ochoa RN) 0811 (Not Given - Provider: Madelin Ochoa RN - Reason: Patient/family refused) 0753 (Given - Provider: Dalia Arguelles RN) budesonide-glycopyrrolat e-formoterol (BREZTRI) 160-9-4.8 MCG/ACT inhaler 1 puff 1 puff, Inhalation, EVERY 12 HOURS, First dose (after last modification) on Fri10/03/24 at 0900, Until Discontinued 0814 (Given - Provider: Madelin Ochoa RN)2140 (Given - Provider: June Saleem, RN) 814 (Given - Provider: Madelin Ochoa RN)2056 (Given - Provider: June Saleem RN) 075 (Given - Provider: Dalia Arguelles, RN) cholecalciferol (VITAMIN D3) tablet 5,000 Units 5,000 Units, Oral, DAILY, First dose on 10/02/24 at 0900, Until Discontinued 812 (Given - Provider: Madelin Ochoa RN) 08 (Not Given - Provider: Madelin Ochoa RN - Reason: Patient/family refused) 075 (Given - Provider: Dalia Arguelles, RN) cyanocobalamin (VITAMIN B12) tablet 100 mcg 100 mcg, Oral, DAILY, First dose on 10/02/24 at 0900, Until Discontinued 813 (Given - Provider: Madelin Ochoa RN) 08 (Not Given - Provider: Madelin Ochoa, NINI - Reason: Patient/family refused) 075 (Given - Provider: Dalia Arguelles, NINI) dapagliflozin (FARXIGA) tablet 10 mg 10 mg, Oral, DAILY, First dose on 10/02/24 at 0900, Until Discontinued, Do not administer if NPO. Discontinue 3 days prior to major invasive medical procedures., Indications: Heart Failure 0900 (Automatically Held - Provider: Taylor Mckee MD) 0900 (Automatically Held) 0731 (Unheld by provider - Provider: Jessica Ley MD)0950 (Given - Provider: Dalia Arguelles, NINI) ferrous sulfate tablet 324 mg 324 mg, Oral, DAILY, First dose on 10/02/24 at 0900, Until Discontinued, Do not crush. 0813 (Given - Provider: Madelin Ochoa RN) 08 (Not Given - Provider: Madelin Ochoa, NINI - Reason: Patient/family refused) 075 (Given - Provider: Dalia Arguelles, NINI) Fexofenadine (ZINA) tablet 180 mg 180 mg, Oral, DAILY, First dose on 10/02/24 at 0900, Until Discontinued 0814 (Given - Provider: Madelin Ochoa RN) 08 (Given - Provider: Madelin Ochoa RN) 075 (Given - Provider: Dalia Arguelles, NINI) fluticasone (FLONASE) 50 MCG/ACT nasal spray 2 spray 2 spray, Nasal, DAILY, First dose on Fri10/02/24 at 0900, Until Discontinued, Dose is for each nostril. 0814 (Given - Provider: Madelin Ochoa RN) 814 (Given - Provider: Madelin Ochoa RN) 075 (Given - Provider: Dalia Arguelles, RN) furOSEmide (LASIX) tablet 60 mg 60 mg, Oral, DAILY, First dose (after last modification) on Fri10/04/24 at 1430, Until Discontinued 08 (Given - Provider: Madelin Ochoa RN) 808 (Given - Provider: Madelin Ochoa RN) 751 (Given - Provider: Dalia Arguelles, RN) Gabapentin (NEURONTIN) capsule 100 mg 100 mg, Oral, 3 TIMES DAILY, First dose on Fri10/01/24 at 2130, Until Discontinued 812 (Given - Provider: Madelin Ochoa RN)1336 (Given - Provider: Cande Anna RN)2140 (Given - Provider: June Saleem RN) 08 (Given - Provider: Madelin Ochoa RN)131 (Not Given - Provider: Madelin Ochoa RN - Reason: Other - Comment: pt at procedure)2056 (Given - Provider: June Saleem RN) 075 (Given - Provider: Dalia Arguelles RN)1400 (Canceled Entry - Provider: System Discharge [...] HOURS, First dose (after last modification) on Fri10/02/24 at 2100, Until Discontinued, Slow release product. Do not crush. Extended release can be cut in half. 08 (Given - Provider: Madelin Ochoa RN)2139 (Given - Provider: June Saleem RN) 08 (Given - Provider: Madelin Ochoa RN)2056 (Given - Provider: June Saleem, RN) 0752 (Given - Provider: Dalia Arguelles, RN) Multi-Vitamins tablet 1 tablet 1 tablet, Oral, DAILY, First dose on 10/02/24 at 0900, Until Discontinued 08 (Given - Provider: Madelin Ochoa RN) 0811 (Not Given - Provider: Madelin Ochoa RN - Reason: Patient/family refused) 0752 (Given - Provider: Dalia Arguelles, RN) Pantoprazole (PROTONIX) tablet DR 40 mg 40 mg, Oral, DAILY, First dose on 10/02/24 at 0900, Until Discontinued, Swallow whole; do not crush or chew., Indications: Continuation of Home Therapy 08 (Given - Provider: Madelin Ochoa RN) 08 (Given - Provider: Madelin Ochoa RN) 075 (Given - Provider: Dalia Arguelles, NINI) Spironolactone (ALDACTONE) tablet 25 mg 25 mg, Oral, DAILY, First dose on 10/02/24 at 0900, Until Discontinued, Max 400 mg/day. Swallow tablet whole; do not crush, split or chew. Contact pharmacy if alternate route or dose is needed. 08 (Given - Provider: Madelin Ochoa RN) 08 (Given - Provider: Madelin Ochoa RN) 075 (Given - Provider: Dalia Arguelles, RN) Continuous Medication Order 10/06/2024 10/07/2024 10/08/2024 [...] Saleem RN)2110 (Rate/Dose Verify - Provider: June Saleem RN) 0342 (Rate/Dose Verify - Provider: June Saleem RN)0857 (Rate/Dose Verify - Provider: Madelin Ochoa RN)1800 [...] 24 hours. 2140 (Given - Provider: June Saleem RN) 1853 (Given - Provider: Madelin Ochoa, NINI) 0756 (Given - Provider: Dalia Arguelles RN) [...] (total volume) irrigation (CANCELED) NEEDED, Starting on Fri10/07/24 at 1243, Until Fri10/07/24 at 1325, Intra-op/Intra-Proc 1243 (Given - Provider: Landon Adhikari MD) guaiFENesin (ROBITUSSIN) oral solution 400 mg 400 mg, Oral, EVERY 6 HOURS NEEDED, Starting on Fri10/01/24 at 2014, Until Fri10/08/24 at 1539, Cough, Congestion Lidocaine (XYLOCAINE) 10 mg/mL injection (CANCELED) NEEDED, Starting on Fri10/07/24 at 1202, Until Fri10/07/24 at 1325, Intra-op/Intra-Proc 1202 (Given - Provider: [...] AT BEDTIME NEEDED, Starting on Fri10/01/24 at 2014, Until Fri10/08/24 at 1539, Insomnia metoprolol (LOPRESSOR) injection 5 mg 5 mg, Intravenous, EVERY 6 HOURS NEEDED, Starting on Fri10/01/24 at 2340, Until Fri10/08/24 at 1539, Sustained HR above 130 1036 (Given - Provider: Madelin Ochoa RN)1812 (Given - Provider: Cande Anna RN) Ondansetron 4mg/2ml (ZOFRAN) injection 4 mg 4 mg, Intravenous, EVERY 4 HOURS NEEDED, Starting on Meme 10/07/24 at 1209, Until Fri10/08/24 at 1208, Nausea [...] Fri10/01/24 at 2018, Until Fri10/08/24 at 1539, Constipation 2nd Line Polyvinyl Alcohol-Povidone PF (REFRESH) ophthalmic solution 1 drop 1 drop, Both Eyes, NEEDED, Starting on Fri10/07/24 at 1639, Until Fri10/08/24 at 1539, Dry Eyes, Patient may self-administer. Potassium chloride [...] at 2018, Until Fri10/08/24 at 153, Constipation 1st Line Sodium chloride 0.9% IV [...] Adjusted weight), Intravenous, Administer over 1 Hours, MATTRESS STRIPPER TO PROCEDURE, 1 dose, Starting on Meme [...] BE BASED ON THE PRIMARY CLINICAL RECORDS. [employer] ([employer] [facility]. provides no warranty or guarantee of the accuracy or completeness of information in this document.
--- NOTE | 2025-03-02 00:23 | EX.ED.DYSGE1 ---
HPI History of Present Illness Chief Complaint: Nosebleed Informant: patient and friend Narrative Narrative: Patient is a 79-year-old female with past medical history of atrial fibrillation status post pacemaker insertion currently on Eliquis. She states roughly 2 hours ago she was sitting at home when she felt her nose start to run. She reached up to wipe the nose and noticed it was bleeding. She states the bleeding is mainly out of the right nostril. She states that she has been holding pressure at home but despite this the bleeding has persisted and secondary to this she presents for evaluation. [facility] Medical History Wears hearing aid Wears dentures Stroke/cerebrovascular accident Former smoker Complete AV block Presence of cardiac pacemaker Osteoarthritis of right hip Right hip pain Hamstring muscle strain Left hip pain Acute stroke due to ischemia Tubular adenoma of colon URI (upper respiratory infection) Chronic neck and back pain Difficulty balancing when standing Abnormal bruising Diarrhea Chest pain Heart disease Shoulder pain SOB (shortness of breath) Cancer History of DVT (deep vein thrombosis) Arthritis Panlobular emphysema Atrial fibrillation Hypertension Rotator cuff tear Tendonitis of shoulder, right Carpal tunnel syndrome Calculus of kidney Moses's esophagus Paroxysmal atrial fibrillation Chronic diastolic (congestive) heart failure FCI (current) use of anticoagulants Cardiomyopathy in other diseases classified elsewhere Nonrheumatic aortic valve stenosis Non-rheumatic tricuspid valve insufficiency Scoliosis of cervical spine GERD (gastroesophageal reflux disease) Home Medications ?Medication ?Instructions ?Recorded ?Last Taken ?Type multivitamin with folic acid 400 1 tab PO DAILY supplement 03/15/13 10/31/18 07:00 History mcg tablet cyclobenzaprine 10 mg tablet 10 mg PO HS PRN muscle spasm 07/25/22 Unknown History fluticasone fur. 100 mcg-umeclid 1 ea inhalation QDAY 08/11/23 Unknown History 62.5 mcg-vilant 25 mcg inhalat.powder (Trelegy Ellipta) fluticasone propionate 50 2 spray intranasal QDAY PRN 08/11/23 Unknown History mcg/actuation nasal allergy symptoms spray,suspension melatonin 5 mg tablet 10 mg PO HS PRN insomnia 08/11/23 Unknown History omeprazole 40 mg capsule,delayed 40 mg PO QDAY 12/22/23 Unknown History release spironolactone 25 mg tablet 25 mg PO DAILY #30 tabs 03/24/24 Unknown Rx calcium 333 mg-magnesium 133 mg-D3 1 tab PO DAILY 04/19/24 Unknown History 1.67 mcg-zinc 5 mg tablet sucralfate 100 mg/mL oral 10 ml PO ACHS PRN stoma 04/28/24 Unknown History suspension apixaban 5 mg tablet 5 mg PO BID #180 tabs 09/24/24 10/22/24 Rx gabapentin 100 mg capsule 100 mg PO TID 10/22/24 10/25/24 02:00 History nystatin 100,000 unit/mL oral 1 ml PO .qid PRN thrush 10/22/24 Unknown History suspension empagliflozin 10 mg tablet 10 mg PO DAILY #90 tabs 12/03/24 Unknown Rx (Jardiance) coenzyme Q10 100 mg tablet 100 mg PO QDAY 01/27/25 Unknown History furosemide 20 mg tablet 20 mg PO QDAY #90 tabs 01/27/25 Unknown Rx furosemide 40 mg tablet (Lasix) 40 mg PO QDAY 01/27/25 Unknown History metoprolol succinate 50 mg 50 mg PO BID #180 tabs 01/27/25 Unknown Rx tablet,extended release 24 hr Allergy/AdvReac Type Severity Reaction Status Date / Time etodolac Allergy Intermediate Other Verified 03/01/25 20:54 diltiazem HCl (From Cardizem) Allergy Swelling Verified 03/01/25 20:54 of face and neck naproxen Allergy Swelling Verified 03/01/25 20:54 (whole body) prednisone Allergy Other Verified 03/01/25 20:54 amiodarone AdvReac Severe Severe Verified 03/01/25 20:54 dyspnea after taking PO Amiodarone adhesive AdvReac Rash Verified 03/01/25 20:54 albuterol AdvReac Other Verified 03/01/25 20:54 codeine AdvReac Vomiting Verified 03/01/25 20:54 hydrocodone bitartrate (From AdvReac Vomiting Verified 03/01/25 20:54 Vicodin) morphine AdvReac Vomiting Verified 03/01/25 20:54 Family History Sister Afib Father CAD (coronary artery disease) Brother CVA (cerebral vascular accident) Mother No problems noted. Sister No problems noted. Brother Wilsons disease Brother Wilsons disease Surgical History Status post carpal tunnel release Presence of permanent cardiac pacemaker Hx of atrioventricular node ablation Hx of fusion of cervical spine History of radiofrequency ablation procedure for cardiac arrhythmia (07/27/15) History of left heart catheterization (03/15/13) History of cardioversion (04/15/24) Hx of cholecystectomy H/O neck surgery ovarian surgery H/O hernia repair Social History Smoking Status: Former smoker alcohol intake: never substance use type: does not use caffeine: Yes Type: coffee Number of servings: 1 what type of physical activity do you participate in: walking frequency: daily seatbelt use: always do you feel safe at home: Yes ROS ROS ED Constitutional Constitutional ED: Denies chills or fever(s) ENT ENT ED: Reports other Details: Positive nosebleed ; Denies rhinorrhea Cardiovascular Cardiovascular: Denies chest pain, palpitations or racing heartbeat Respiratory/Chest Respiratory/Chest: Denies cough or dyspnea Gastrointestinal Gastrointestinal: Denies abdominal pain, diarrhea, nausea or vomiting Musculoskeletal Musculoskeletal: Denies myalgias Integumentary Denies rash Neurologic Neurologic: Denies headache(s) Hematologic/Lymphatic Hematologic/Lymphatic: Reports easy bleeding and easy bruising EXAM Physical Exam Const Vital Signs: 03/01/25 20:52 03/02/25 00:36 Temperature 97.8 F 98 F Temperature Source Oral Pulse Rate 91 71 Respiratory Rate 16 16 Blood Pressure 104/93 H 124/71 H Blood Pressure Mean 96 88 Pulse Ox 95 98 Oxygen Delivery Method Room Air Positive well nourished and well developed General Appearance ED: well developed; Negative for pallor HEENT HEENT Narrative: There is a persistent venous ooze of blood from the right nostril consistent with anterior epistaxis with faint overflow bleeding into the left nostril Patient has clots and faint drainage of blood in the posterior pharynx consistent with anterior epistaxis No airway edema or compromise Eyes PERRL and EOMs intact bilaterally General Eye ED: Negative for pale conjunctiva or scleral icterus Neck supple Resp normal respiratory effort and clear to auscultation bilaterally Cardio regular rate and regular rhythm Extremity normal to inspection Neuro oriented x3, CN's II-XII intact bilaterally and no sensory deficits noted Sensorium / Orientation: alert Motor Exam: strength 5/5 throughout Psych mental status grossly normal Skin no rashes or lesions noted General Skin Exam: Negative for jaundice or pallor MDM MDM MDM Narrative Medical decision making narrative: Patient arrived to the ER with stable vitals. She reported a spontaneous bleed out of the right nostril. She is on Eliquis secondary to history of atrial fibrillation but also has a pacemaker in place. At this time her history and exam is consistent with anterior epistaxis out of the right septum. She does not have findings to suggest posterior epistaxis from the sphenopalatine artery. As vitals are stable and bleeding is only been persistent for the last few hours I have low concern for acute blood loss anemia and do not feel the need to perform a H&H. As the patient is on Eliquis there is high likelihood bleeding will persist and therefore I elected to perform nasal packing with a Merisel as this will be the most likely treatment option to stop the bleeding. The patient had a 5 cm Merisel placed into the right nostril. She was then watched in the ER for approximately 30 to 40 minutes. Despite the Merisel placement there was overflow into the left nostril as well as in the posterior pharynx indicating that the Merisel was not reaching the area of active bleeding. Therefore the 5 cm Merisel packing was removed and an 8 cm was placed in the right nostril. After placement of the 8 cm Merisel patient was watched once again for 30 to 40 minutes. On reevaluation there is now no overflow bleeding of the left nostril and no bleeding in the posterior pharynx indicating that the nasal packing is in proper position leading to hemostasis of the active bleeding. The patient will be advised to stop her Eliquis for the next 3 days and follow-up with ENT for further evaluation. History & Record Review Discussion w/independent historian: Patient and Friend Discharge Plan Triage Chief Complaint: Nosebleed ED Provider: Saul Guzman Dx/Rx/DC Orders Clinical Impression: Acute anterior epistaxis, Current use of half-way anticoagulation, Presence of cardiac pacemaker, Chronic diastolic (congestive) heart failure, Hypertension Instructions: ED Epistaxis (Adult) Prescriptions: No Action cyclobenzaprine 10 mg tablet 10 mg PO HS PRN (Reason: muscle spasm) fluticasone propionate 50 mcg/actuation spray,suspension 2 spray intranasal QDAY PRN (Reason: allergy symptoms) melatonin 5 mg tablet 10 mg PO HS PRN (Reason: insomnia) Trelegy Ellipta 100-62.5-25 mcg blister with device 1 ea inhalation QDAY spironolactone 25 mg tablet 25 mg PO DAILY Qty: 30 11RF omeprazole 40 mg capsule,delayed release(DR/EC) 40 mg PO QDAY calc carb-mag ox-D3-zinc gluc 333 mg-133 mg- 1.67 mcg-5 mg tablet 1 tab PO DAILY furosemide [Lasix] 40 mg tablet 40 mg PO QDAY coenzyme Q10 100 mg tablet 100 mg PO QDAY furosemide 20 mg tablet 20 mg PO QDAY Qty: 90 3RF metoprolol succinate 50 mg tablet extended release 24 hr 50 mg PO BID Qty: 180 3RF multivitamin with folic acid 1 TABLET tablet 1 tab PO DAILY Patient Comments: VITAMIN sucralfate 100 mg/mL suspension 10 ml PO ACHS PRN (Reason: stoma) Patient Comments: Take 10 mL by mouthEbefore meals and at bedtime. (560cc=2wks) nystatin 100,000 unit/mL suspension 1 ml PO .qid PRN (Reason: thrush) Rx Instructions: use after trelegy and flonase to prevent / tx thrush gabapentin 100 mg capsule 100 mg PO TID apixaban 5 mg tablet 5 mg PO BID Qty: 180 3RF Jardiance 10 mg tablet 10 mg PO DAILY Qty: 90 3RF Primary Care Provider: Minerva Manley Referrals: Minerva Manley MD [Primary Care Provider, Internal Medicine] Francisco Javier Montana MD [Med Staff - Active Staff, Ear Nose Throat (ENT)] Referral Note: Nosebleed on Eliquis Activity Restrictions/Additional Instructions: Please stop your Eliquis for 3 days as this will help prevent rebleeding. Follow-up with the ENT to have the packing removed and return to the ER should you have any further concerns Print Language: Azeri Disposition Disposition: Home, Self Care Discharge Date/Time: 03/02/25 00:37
[2025-03-02 00:36] VITALS: BP 124/71; PULSE 71; RESP 16; TEMP 36.6; O2SAT 98
== END 2025-03-02 00:37 | disposition home or self-care (01) ==
PROVIDERS: Emergency Provider Emergency Medicine; PCP Internal Medicine; Visit Provider Emergency Medicine
DX: R04.0 Epistaxis (principal); I11.0 Hypertensive heart disease with heart failure; I50.32 Chronic diastolic (congestive) heart failure; J43.1 Panlobular emphysema; I48.0 Paroxysmal atrial fibrillation; Z95.0 Presence of cardiac pacemaker; Z79.01 Long term (current) use of anticoagulants; Z87.891 Personal history of nicotine dependence; Z86.73 Personal history of transient ischemic attack (TIA), and cerebral infarction without residual deficits; Z79.51 Long term (current) use of inhaled steroids; K21.9 Gastro-esophageal reflux disease without esophagitis; Z79.899 Other long term (current) drug therapy; Z79.84 Long term (current) use of oral hypoglycemic drugs; Z90.49 Acquired absence of other specified parts of digestive tract
CPT/HCPCS: 30901; 99282

== ENCOUNTER → 2025-04-26 | Outpatient (CLI) | payer MEDICARE, SELFPAY ==
--- NOTE | 2025-04-26 12:45 | US_ITS ---
PROCEDURE: KIDNEY AND BLADDER 04/26/2025 REASON FOR EXAM: ASYMPTOMATIC BACTERIA/URINARY TRACT INFECTION TECHNIQUE: Procedure Code: USKI Modality: US Procedure: KIDNEY AND BLADDER FINDINGS: Right kidney measures 9.8 Cm and left kidney measures 10.4 Cm. Normal echotexture of bilateral kidneys. No hydronephrosis. No renal stones. Urinary bladder is unremarkable. US/Kidney and Bladder IMPRESSION: No hydronephrosis. No urinary retention. Reading Location: [facility]
== END | disposition home or self-care (01) ==
LOC: US 12:41
PROVIDERS: PCP Internal Medicine; Referring Provider Urology; Visit Provider Urology
DX: N39.0 Urinary tract infection, site not specified (principal)
CPT/HCPCS: 76770

== ENCOUNTER → 2025-05-02 | Outpatient (CLI) | payer MEDICARE, SELFPAY ==
[2025-05-02 11:52] LABS: Uric Acid 5.8 mg/dL (2.6-6.0)
== END | disposition home or self-care (01) ==
PROVIDERS: PCP Internal Medicine; Referring Provider Orthopaedic Surgery; Visit Provider Orthopaedic Surgery
DX: M10.9 Gout, unspecified (principal)
CPT/HCPCS: 36415; 84550